=== PATIENT | male | born 1945 | race Caucasian/White ===

== ENCOUNTER 2017-10-15 09:07 | Emergency (ER) | payer MEDICARE, SELFPAY ==
[2017-10-15 09:08] VITALS: BP 188/91; PULSE 74; RESP 16; TEMP 36.4; O2SAT 97; BMI 25.0
[2017-10-15 09:51] LABS: International Normalized Ratio 2.8
--- NOTE | 2017-10-15 10:02 | ED.VISSUMM ---
- ER Visit Summary Date of Service: 10/15/17 Chief Complaint: Back contusion after fall History of Present Illness: The patient is a 72 M who is on Coumadin for multiple pulmonary emboli presents with a contusion to the back after mechanical fall yesterday. It is mid thoracic without any neck pain or head injury. Patient has no other injuries. Physical Examination: Otherwise unremarkable exam, no C-spine tenderness full range of motion of his spine and back he has a 15 x 15 mm ecchymoses over his back, no obvious hematoma. Test Results: INR 2.8 Emergency Department Course and Treatment: Patient was told to follow-up with his PCP. He appears intact, no reason for CT or x-rays. Disposition: Discharged in stable condition Impression: Ecchymosis over the back This note was generated with [employer] dictation software. It may contain incorrect words, spelling, and punctuation that were not noted in review of the chart prior to signing ED Disposition - Plan for ED Patient: Chief Complaint: Fall Referrals: Franc Hills MD [Primary Care Provider] -
--- NOTE | 2017-10-15 10:04 | ED.DEP ---
ED Disposition - Plan for ED Patient: Disposition: Home or Assisted Living Chief Complaint: Fall Instructions: ED Mechanical Fall Referrals: Franc Hills MD [Primary Care Provider] - 2 Days
[2017-10-15 10:30] VITALS: BP 134/75; PULSE 62; RESP 15; O2SAT 98
== END 2017-10-15 10:30 | disposition home or self-care (01) ==
PROVIDERS: Emergency Provider Emergency Medicine; Family Provider Internal Medicine; PCP Internal Medicine
DX: S20.229A Contusion of unspecified back wall of thorax, initial encounter (principal); W19.XXXA Unspecified fall, initial encounter; Y93.9 Activity, unspecified; Y92.9 Unspecified place or not applicable; Y99.9 Unspecified external cause status; G62.9 Polyneuropathy, unspecified; Z79.01 Long term (current) use of anticoagulants; Z79.899 Other long term (current) drug therapy; Z86.711 Personal history of pulmonary embolism
CPT/HCPCS: 36415; 85610; 99282

== ENCOUNTER → 2017-11-23 13:09 | Outpatient (CLI) | payer MEDICARE, SELFPAY | PROVIDERS: Family Provider Internal Medicine; PCP Internal Medicine; Visit Provider Internal Medicine Cardiovascular Disease | DX: I44.7 Left bundle-branch block, unspecified (principal) | CPT/HCPCS: 93306 ==

== ENCOUNTER 2018-01-10 14:08 | Emergency (ER) | payer MEDICARE, SELFPAY ==
[2018-01-10 14:09] VITALS: BP 152/73; PULSE 66; RESP 16; TEMP 36.8; O2SAT 99; BMI 24.3
--- NOTE | 2018-01-10 14:33 | RAD_ITS ---
STUDY: X-RAY - RIGHT SHOULDER REASON FOR EXAM: Male, 72 years old. Trauma TECHNIQUE: 4 view(s) of the shoulder. COMPARISON: None. FINDINGS: There is no evidence of fracture or dislocation. There are mild degenerative changes. There are no radiodense foreign bodies. RAD/Shoulder min 2 Views IMPRESSION: No fracture or dislocation. Mild degenerative changes. Electronically Signed: Ramon Arambula, at 16:37 EDT Tel , Service support ,
--- NOTE | 2018-01-10 14:33 | RAD_ITS ---
STUDY: X-RAY - UNILATERAL RIBS ( RIGHT ) WITH CHEST REASON FOR EXAM: Male, 72 years old. Trauma TECHNIQUE - RIBS: 4 view(s) of the ribs. TECHNIQUE - CHEST: Frontal view COMPARISON: 11/29/2014 FINDINGS - RIBS: There is a nondisplaced fracture of the right ninth rib. There are no additional displaced rib fractures identified. FINDINGS - CHEST: The lungs are clear. There are no pleural effusions. There is no pneumothorax. The heart is normal in size. RAD/Ribs Uni Min 3V w/PA Chest IMPRESSION: RIBS: Nondisplaced fracture of the right ninth rib. No additional displaced rib fracture identified. CHEST: Clear lungs. No pneumothorax. Electronically Signed: Ramon Arambula, at 16:34 EDT Tel , Service support ,
[2018-01-10 15:12] VITALS: PULSE 88; RESP 16; O2SAT 97
[2018-01-10 15:31] LABS: Prothrombin Time (Protime)PT. 23.1 SECONDS (11.7-14.9)
--- NOTE | 2018-01-10 16:38 | ED.VISSUMM ---
- ER Visit Summary Date of Service: 01/10/18 Chief Complaint: Fall History of Present Illness: The patient is a 72 M who presents after a fall. He slipped and fell onto a metal wastebasket which hit his right lower lateral ribs. He also complains of some mild pain in the right shoulder and noticed some bruising on his right forearm but does not have pain there. He denies any head injury loss of consciousness and headache or vomiting. He is on warfarin due to history of recurrent pulmonary emboli. Physical Examination: Afebrile vitals are stable Is regular rate and rhythm Patient does have right lower lateral chest wall tenderness but his lungs are clear with equal breath sounds bilaterally Abdomen soft Patient does have some bruising over the right anterior/volar forearm he has active full range of motion x4 extremities GCS of 15 with no focal or lateralizing neurological deficits Test Results: INR 2.0. Rib series shows a right ninth rib fracture no pneumothorax right shoulder x-ray shows no fracture or dislocation. Emergency Department Course and Treatment: Patient does have a nondisplaced rib fracture. He was given an incentive spirometer. He has 10 mg Percocets at home. He was advised to use these. He understands to return for new or worsening symptoms and was instructed on specific signs and symptoms to monitor for. He was discharged. Treatment Plan: [] Disposition: Discharge Impression: Right ninth rib fracture Right shoulder sprain Right forearm contusion This note was generated with [employer] dictation software. It may contain incorrect words, spelling, and punctuation that were not noted in review of the chart prior to signing ED Disposition - Plan for ED Patient: Chief Complaint: Fall Referrals: Franc Hills MD [Primary Care Provider] -
--- NOTE | 2018-01-10 16:40 | ED.DEP ---
ED Disposition - Plan for ED Patient: Chief Complaint: Fall Instructions: ED Mechanical Fall, ED Fx Rib, ED Sprain Shoulder Referrals: Franc Hills MD [Primary Care Provider] -
[2018-01-10 16:47] VITALS: BP 136/76; PULSE 78; RESP 16; O2SAT 98
--- NOTE | 2018-01-10 16:48 | ED.RN ---
RESPIRATORY TAUGHT PATIENT HOW TO USE INCENTIVE SPIROMETER
== END 2018-01-10 17:02 | disposition home or self-care (01) ==
PROVIDERS: Emergency Provider Emergency Medicine; Family Provider Internal Medicine; PCP Internal Medicine
DX: S22.31XA Fracture of one rib, right side, initial encounter for closed fracture (principal); S43.401A Unspecified sprain of right shoulder joint, initial encounter; S50.11XA Contusion of right forearm, initial encounter; W01.10XA Fall on same level from slipping, tripping and stumbling with subsequent striking against unspecified object, initial encounter; Y93.9 Activity, unspecified; Y92.9 Unspecified place or not applicable; Y99.9 Unspecified external cause status; I10 Essential (primary) hypertension; Z79.01 Long term (current) use of anticoagulants; Z79.899 Other long term (current) drug therapy; Z86.711 Personal history of pulmonary embolism
CPT/HCPCS: 71101; 73030; 85610; 99282

== ENCOUNTER 2018-11-29 08:02 | Day surgery (SDC) | payer MEDICARE, SELFPAY ==
[2018-11-29 08:24] VITALS: BP 115/75; PULSE 73; RESP 16; TEMP 36.6; O2SAT 95; BMI 22.8
[2018-11-29] MEDS: Lactated Ringers 1,000 ML 100 ML IV (08:38)
--- NOTE | 2018-11-29 08:49 | H&P.OPEN ---
History of Present Illness Date of Admission: 11/29/18 The patient is a 73 year old M who presents for screening colonoscopy. His last colonoscopy was 10 years ago. No polyps were identified at that time. Past Medical/Surgical History - Planned Operation Planned Operative Procedure/s: cscope open access Date of Operative Procedure: 11/29/18 Permit Signed: No S.O.S: No Is This Patient Having a Total Joint: No - Previous Hospitalizations/Surgeries HX Hospitalizations: Yes - pe 8 yrs ago HX of Surgeries: cscope 10 yrs ago. retinal eye surgery. ivc filter and then removed. wrist/laceration surgery as child. ablation back 5 yrs ago Any Problems With Anesthesia: No You/Your Family Experience Fever (Hyperthermia) With Anes: No Cholinesterase deficiency: No - Cardiovascular Hx Chest Pain within Last 2 months: No Hx of Irregular Heartbeat and/or Afib: No - lbbb/follows with dr cool/last visit 11/2017 Hx Heart Attack: No Hx Congestive Heart Failure: No Hx Rheumatic Fever: No Hx Hypertension: Yes - controlled with med Hx Internal Defibrillator: No Hx Pacemaker: No Hx Cardiac Catheterization: No - 2012 What facility was last heart cath performed: [facility] Date of last Heart Cath: 2012 Hx Cardiac Surgery/Stents/Etc.: No Hx Stress Test: Yes - [facility] 6 yrs ago/echo 2017 HX Edema: No Hx Pain in Legs when Walking/Leg Cramps: Yes - neuropathy - Respiratory Chronic Cough: No HX of Shortness of Breath: No Hoarseness: No Hx Chronic Obstructive Pulmonary Disease (COPD): No Hx Asthma: No Hx Emphysema: No Hx Sleep Apnea: No CPAP: No BIPAP: No Hx Oxygen Use at Home: No Hx Respiratory Tract Infection/Cold (presently): No Do You Snore Loudly (louder than talking or can be heard): No Do You Often Feel Tired/ Fatigued/ Sleepy Dring Daytime?: No Has Anyone Observed You Stop Breathing During Sleep?: No Result (for STOP score): Negative Hx Smoking: Yes - quit 1980 Smoking Status: Former smoker - Gastrointestinal Hx Gastroesophageal Reflux: No - occ heartburn/prn zantac Hx Gastrointestinal Disorders: No Hx Gastrointestinal Bleed: No Hx Ulcer: No Hx Hiatal Hernia: No Difficulty Chewing/Swallowing: No Recent Onset of Swallowing Problems: No Special diet followed at home: No Hx Unplanned Weight Loss of 20#: No HX Unplanned Weight Gain of 20#: No - Neurological Hx Seizures: No HX Syncope/Blackout Spells/Unconsciousness: No Hx CVA/Stroke: No Hx Transient Ischemic Attacks (TIA): No Hx Multiple Sclerosis: No Hx Parkinson's Disease: No Hx Head/Neck Injury: Yes - collapsed disc neck Hx Headaches: No Hx Back Injury/Pain: Yes - bulging disc/arthritis/stenosis/lumbago-sciatica Recent Onset of Speech Difficulty: No Restless Legs: No Does patient have nerve stimulator: No Patient instructed to have device shut off: No Rep notified?: No - Blood Disorder Hx Leukemia: No Bleeding Tendencies: No - not prior to coumadin Hx Deep Vein Thrombosis: Yes - 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 Hx High Cholesterol: Yes - stopped med Blood Transmitted Disease: No Hx Hepatitis: No Hx Cirrhosis: No Hx Anemia: No Hx Blood Disorders: No - Genitourinary Hx Renal Disease: No Hx Dialysis: No - Musculoskeletal Hx Arthritis: Yes Hx Rheumatoid Arthritis: No Hx Gout: No Recent Onset of an Orthopedic Problem: No - Endocrine Hx Diabetes: No Thyroid Disease: No Hx Steroid Therapy: No - Psycho/Social Hx Substance Use: No Hx Alcohol Use: Yes - wine Hx Anxiety: No Hx Depression: No Mental Illness: No Hx Dementia: No - Miscellaneous Hx Cancer: No Recent Exposure to Contagious Disease: No Active MRSA: No Hx of C-Diff: No Any Loose Teeth: No Allergies cephalexin [From Keflex] Allergy (Intermediate, Verified 11/24/18 09:12) Rash Sibling Family History: Family History (Last Reviewed 11/18/17 @ 09:52 by Aidan Cool MD) Father CAD (coronary artery disease) Myocardial infarction Mother No problems noted. Clotting Disorder, - - Brother - Discharge Is Pt Admitted From a Residential, or a Nursing Home: No Who Could Help: transportation After D/C, Where Do you Plan to Go: Return Home - From the PAT History Number of Risk Factors: 4 - Physical Exam General: Alert, Oriented x3 HEENT: Atraumatic, PERRLA, EOMI, Normocephalic Neck: Supple, No JVD Lungs: Clear to auscultation Cardiovascular: Regular rate, Regular Rhythm, No murmurs Abdomen: Bowel Sounds Present, Soft, Non Tender, Non-Distended Vital Signs Temp Pulse Resp BP Pulse Ox 97.9 F 73 16 115/75 95 11/29/18 08:24 11/29/18 08:24 11/29/18 08:24 11/29/18 08:24 11/29/18 08:24 Oxygen Delivery Method Room Air Weight: 187 lb 13.341 oz Body Mass Index (BMI) 22.8 Assessment/Plan Assessment: Screening colonoscopy Plan: Colonoscopy Surgery Risks - Colonoscopy Risks Include but are not Limited To: Risks include but are not limited to: Bleeding, perforation requiring further surgery, inability to complete colonoscopy requiring barium enema.
--- NOTE | 2018-11-29 09:30 | COLBX_PTH ---
PATIENT: ALEX BROOKS LOC: EN U#:[id number] AGE/SX: 73/M ROOM: RE11/29/[address]: Dr. Micah Hayes MD : 1945 BED: DIS: 11/29/2018 SPEC #: [id number] RECD: 11/29/18 11:26 STATUS: BRINDA REPolo #: [id number] KARMA: 11/29/18 09:[address]: Micah Hayes DEPT: SURGICAL PATHOLOGY RECD BY: Bishop Pete ENTERED: 11/29/18 13:37 SP TYPE: COLON BX OTHR DR: MD Franc Barger MD Tissues: Ascending colon Procedures: Surgery Specimen Level IV HEADER OPERATION: Colonoscopy, open access (MAC) PRE-OP DIAGNOSIS: Screening TISSUE SUBMITTED: Ascending colon polyp MICROSCOPIC DIAGNOSIS Ascending colon polyp, biopsy: Fragments of tubular adenoma. AM:sp 11/30/18 MICROSCOPIC DESCRIPTION Slides are reviewed. GROSS DESCRIPTION Received is one container labeled with the patient name and designated ascending colon polyp. The specimen consists of two irregular fragments of polyp that in aggregate measure 1 x 0.7 x 0.3 cm and 0.4 x 0.3 x 0.2 cm. The specimen is totally submitted in one cassette. /SJ:sp 11/29/18 TC: 5 CPT: 16502
[2018-11-29 10:00] VITALS: BP 115/75; BP 96/61; PULSE 67; RESP 18; TEMP 36.3; O2SAT 97
--- NOTE | 2018-11-29 10:02 | OP.ENDO_ITS ---
11/29/2018 Franc Hills Md Re : Colonoscopy procedure for Crispin Holt Augustar Reinier This procedure was performed on Thursday, November 29, 2018. My impressions and recommendations are as follows: Impressions : - One 8 mm polyp in the ascending colon, removed with a hot snare. Resected and retrieved. - Diverticulosis in the sigmoid colon. No specimens collected. - The examination was otherwise normal. Recommendations : - Discharge patient to home. - Resume previous diet. - Continue present medications. May resume Coumadin tomorrow. - Await pathology results. - Repeat colonoscopy in 3 years for surveillance. - Return to my office in 1 week. My findings are described in the full procedure note, which is enclosed. If I can be of further assistance, please feel free to contact me at Doctor phone number(s): , Fax: [phone], Work: . Sincerely, MD Micah Roberts MD 11/29/2018 10:01:50 AM This report has been signed electronically.
[2018-11-29 10:05] VITALS: BP 115/75; BP 91/64; PULSE 64; RESP 18; O2SAT 93
[2018-11-29 10:10] VITALS: BP 115/75; BP 92/61; PULSE 65; RESP 18; O2SAT 93
[2018-11-29 10:15] VITALS: BP 115/75; BP 95/62; PULSE 66; RESP 18; TEMP 36.2; O2SAT 98
[2018-11-29 10:31] VITALS: BP 115/75
== END 2018-11-29 10:36 | disposition home or self-care (01) ==
LOC: EN 08:05 → AC 08:06
PROVIDERS: Family Provider Internal Medicine; PCP Internal Medicine; Referring Provider Internal Medicine; Visit Provider Surgery
PROC: 0DJD8ZZ Inspection of Lower Intestinal Tract, Via Natural or Artificial Opening Endoscopic (ICD-10-PCS; CPT 45378; principal; 2018-11-29 09:25)
DX: Z12.11 Encounter for screening for malignant neoplasm of colon (principal); D12.2 Benign neoplasm of ascending colon; K57.30 Diverticulosis of large intestine without perforation or abscess without bleeding; I10 Essential (primary) hypertension; E78.00 Pure hypercholesterolemia, unspecified; Z79.01 Long term (current) use of anticoagulants; Z79.899 Other long term (current) drug therapy; Z88.1 Allergy status to other antibiotic agents; Z87.891 Personal history of nicotine dependence; Z86.711 Personal history of pulmonary embolism; Z86.718 Personal history of other venous thrombosis and embolism
CPT/HCPCS: 45385; 88305; J7120; J1610

== ENCOUNTER 2019-01-12 15:55 | Emergency (ER) | payer MEDICARE, SELFPAY ==
[2018-12-22 12:24] VITALS: BMI 26.1
[2019-01-12 15:55] VITALS: BP 170/87; PULSE 82; RESP 20; TEMP 36.5; O2SAT 96; BMI 25.9
--- NOTE | 2019-01-12 16:17 | EKG12_ITS ---
Test Reason : SOB Blood Pressure : / mmHG Vent. Rate : 070 BPM Atrial Rate : 070 BPM P-R Int : 154 ms QRS Dur : 142 ms QT Int : 432 ms P-R-T Axes : 044 008 080 degrees QTc Int : 466 ms Normal sinus rhythm Left bundle branch block Abnormal ECG Confirmed by NURA LINCOLN, JEOVANY ([id number]), editor department GUADALUPE BRISENO ([id number]) on 01/19/2019 9:28:51 A M Referred By: ERIKA Confirmed By:JAIDA LYMAN MD
--- NOTE | 2019-01-12 16:18 | ED.DCSUM_ITS ---
History of Present Illness Chief Complaint: Shortness of Breath Informant: Patient Onset: Today Narrative: Patient states he has had symptoms of high blood pressure, lightheadedness, dizziness for the past couple of weeks. The only thing he can think of was changing his sleeping medicine to Ambien about the time the symptoms started. He went to urgent care this morning where his blood pressure was 188/90. He already takes lisinopril hydrochlorothiazide combo. He was given an additional 10 mg of lisinopril to add to his regimen. Patient states at home today he continued to feel lightheaded despite his blood pressure coming down a little bit. He presented to the emergency room. He states he felt short of breath with exertion when walking up the hill into the emergency room. Thus the first time he has noted any shortness of breath. Patient does have a history of pulmonary embolism x3. He is on Coumadin. He has no known cardiac disease. - Past Medical History (1) Essential hypertension Status: Chronic (2) Hyperlipidemia Status: Chronic (3) Left bundle branch block Status: Chronic (4) Pulmonary embolism Status: Chronic Comment: Recurrent in 2009 and 2014 On warfarin Past Medical History - Allergies and Home Meds Allergies/Adverse Reactions: Allergies cephalexin [From Keflex] Allergy (Intermediate, Verified 01/12/19 15:58) Rash Primary Care Physician: Franc Hills MD [Primary Care Provider] - Prior records reviewed: Yes Past Medical History: - - Reviewed Surgical History: - - Eye surgery Smoking Status: Former smoker - Family History Sibling Family History: Family History (Last Reviewed 12/22/18 @ 13:07 by Aidan Atkinson MD) Father CAD (coronary artery disease) Myocardial infarction Mother No problems noted. Family History: Reports: Clotting Disorder, - - Brother Review of Systems General: Denies: Chills, Fever Eyes: Denies: Visual changes - bilaterally ENT: Denies: Bilateral ear pain Cardiovascular: Denies: Chest pain Respiratory: Reports: Dyspnea. Denies: Cough, Sputum Gastrointestinal: Denies: Abdominal pain, Nausea, Vomiting, Diarrhea Genitourinary: Denies: Dysuria Musculoskeletal: Denies: Back pain, Extremity Pain Skin: Denies: Wounds Neurological: Denies: Headache Endocrine: Denies: Polyuria, Polydipsia Hematologic: Denies: Easy bruising Allergy: Denies: Uticaria Physical Exam Vital Signs/Narrative: Vital Signs Temp Pulse Resp BP Pulse Ox 01/12/19 15:55 97.7 F L 82 20 H 170/87 H 96 Inital Vital Signs reviewed: Yes General: Well nourished, Well developed Head: Normocephalic ENT: Moist mucous membranes Neck: Supple, Nontender Cardiovascular: Regular rate, Regular rhythm Respiratory: No distress, CTA bilaterally Abdomen: Soft, Nontender, Normal bowel sounds Back: Nontender Extremities: Nontender, No edema Skin: Normal color, No rash Neurological: Alert, Oriented x3 Psychological: Normal affect Diagnostic/Tx/Re-eval Impressions Chest X-Ray 01/12/19 16:35 IMPRESSION: Calcified plaques of the aortic arch. Left basilar fibrosis. No acute cardiopulmonary disease process is seen. Chest findings are stable in the interval. Electronically Signed: Toy Sahni MD at 16:56 EDT , Service support , Chest CTA 01/12/19 17:28 IMPRESSION: Normal CTA chest examination, without a demonstrated pulmonary embolism or arterial dissection. Coronary arterial calcifications are present. There are mild diffuse emphysematous changes of the lungs. There is mild vascular pooling of the lung bases. Electronically Signed: Toy Sahni MD at 18:10 EDT , Service support , 01/12/19 16:35 Chest PA and Lateral [RAD] Stat 01/12/19 17:28 CTA Chest W/WO Contrast [CT] Stat Laboratory Results 01/12/19 01/12/19 01/12/19 16:30 16:30 16:30 WBC 7.5 RBC 4.66 Hgb 15.2 Hct 44.9 MCV 96.4 H MCH 32.6 H MCHC 33.9 RDW Std Deviation 46.2 H RDW Coeff of Uyen 12.9 Plt Count 186 MPV 9.4 Immature Gran % (Auto) 0.100 Neut % (Auto) 55.6 Lymph % (Auto) 30.3 [place] % (Auto) 11.5 H Eos % (Auto) 2.0 Baso % (Auto) 0.5 Absolute Neuts (auto) 4.2 Absolute Lymphs (auto) 2.27 Nucleated RBC % 0 PT 22.9 H INR 2.0 D-Dimer Quant (PE/DVT) 1.04 H* Sodium 142 Potassium 3.3 L Chloride 112 H Carbon Dioxide 25.0 Anion Gap 5 BUN 20 H Creatinine 0.76 Estim Creat Clear Calc 72.13 Est GFR (MDRD) Af Amer 129 Est GFR (MDRD) Non-Af 106 BUN/Creatinine Ratio 26.3 H Glucose 137 H Calcium 8.6 Troponin I < 0.015 - EKG Initial EKG Interpretation: Sinus Rhythm - Sinus at 70 with a left bundle branch block. - Medical Decision Making Laboratory evaluation was undertaken. Patient's d-dimer was elevated. CTA is unremarkable. Patient does tell me that he has been taking 20 mg of Ativan at night. My suspicion is this is leading to his lightheadedness and dizziness. He had previously been on a benzodiazepine to help him sleep and stopped this a couple weeks ago. I spoke with Dr. Maldonado. She asked that we either have the patient restart his benzo or write him a low-dose Ativan that he can use to help sleep at night. Patient is to take one half tab Ativan if he chooses to take it at all. Patient tells me he will not take any further Ativan. He is to follow-up with Dr. Hills. ED Disposition - Plan for ED Patient: Disposition: Home or Assisted Living Diagnosis: Dyspnea, Dizziness Instructions: DIZZINESS, Unk Cause Prescriptions: Lorazepam [Ativan] 1 mg PO QHS PRN PRN #10 tablet PRN Reason: Insomnia Referrals: Franc Hills MD [Primary Care Provider] - 1 Week
[2019-01-12 16:28] VITALS: BP 153/78; PULSE 73; RESP 16; O2SAT 95
--- NOTE | 2019-01-12 16:35 | RAD_ITS ---
STUDY: X-RAY CHEST REASON FOR EXAM: Male, 73 years old. Hypertension, lightheadedness TECHNIQUE: PA and lateral views of the chest. COMPARISON: Prior study of 01/10/2018 FINDINGS: product support consultant leads are present. There is left basilar fibrosis. There is no demonstrated pleural abnormality. Normal size heart. Normal mediastinum and tricia. Normal visualized pulmonary arteries. There are calcified plaques of the aortic arch. Normal visualized thoracic spine. Normal visualized ribs, clavicles, and shoulders. There is no demonstrated abnormality of the visualized soft tissue structures of the upper abdomen. RAD/Chest PA and Lateral IMPRESSION: Calcified plaques of the aortic arch. Left basilar fibrosis. No acute cardiopulmonary disease process is seen. Chest findings are stable in the interval. Electronically Signed: Toy Sahni MD at 16:56 EDT , Service support ,
[2019-01-12 16:48] LABS: Absolute Lymphocyte Count 2.27 X10^3/uL (0.83-4.51); Absolute Neutrophil Count 4.2 X10^3/uL (2.0-7.7); Basophil# 0.04 X10^3/uL; Basophil% 0.5 % (0-1); Eosinophil# 0.15 X10^3/uL; Hematocrit 44.9 % (40-54); Hemoglobin 15.2 g/dL (13.0-16.5); Lymphocyte # 2.27 X10^3/ul (4.0); Lymphocyte % 30.3 % (19-41); Mean Corp Hgb Conc 33.9 g/dL (32-36); Mean Corpuscular Hgb 32.6 pg (27.0-32.0); Mean Corpuscular Volume 96.4 fL (80-94); Mean Platelet Vol. 9.4 fl (6.2-12.0); Monocyte# 0.86 X10^3/uL; Monocyte% 11.5 % (0-10); NRBC Flagged by Analyzer 0 % (0-5); Neutrophil # 4.17 X10^3/uL (2.7-7.7); Neutrophil % 55.6 % (47-70); Platelet Count 186 K/mm3 (150-450); RBC Distribution Width CV 12.9 % (11.6-14.6); RBC Distribution Width SD 46.2 fl (35.1-43.9); Red Blood Count 4.66 M/mm3 (4.6-6.2); White Blood Count 7.5 K/mm3 (4.4-11.0)
[2019-01-12 16:57] VITALS: BP 158/78; PULSE 64; RESP 16; O2SAT 96
[2019-01-12 17:01] LABS: Prothrombin Time (Protime)PT. 22.9 SECONDS (11.7-14.9)
[2019-01-12 17:05] LABS: Anion Gap 5 (5-15); BUN 20 mg/dL (7-18); BUN/Creat Ratio 26.3 RATIO (10-20); Calcium,Total 8.6 mg/dL (8.5-10.1); Chloride 112 mmol/L (98-107); Creatinine, Serum 0.76 mg/dL (0.70-1.30); EST Glomerular Filtration Rate 106 mL/min (>60); Est Glom Filt Rate - Afr Amer 129 mL/min (>60); Estimated Creatinine Clearance 72.13 ml/min; Glucose 137 mg/dL (74-106); Potassium 3.3 mmol/L (3.5-5.1); Sodium Level 142 mmol/L (136-145)
[2019-01-12 17:12] LABS: D-Dimer Quantitative (DVT/PE) 1.04 FEU/ug/m (0.27-0.49)
--- NOTE | 2019-01-12 17:12 | ED.RN ---
D-DIMER 1.04 MD AWARE.
--- NOTE | 2019-01-12 17:28 | CT_ITS ---
STUDY: CTA CHEST REASON FOR EXAM: Male, 73 years old. Shortness of breath, history of PE RADIATION DOSAGE (If Supplied By Facility): CTDIvol = ( 14.135 ) mGy, DLP = ( 1072.57 ) mGycm TECHNIQUE: The examination was performed with the intravenous administration of IV Isovue 300 100. Post-processing of the angiographic images was performed, with multiplanar reformation and 3D reconstruction. Individualized dose optimization techniques were used for this CT. COMPARISON: Prior study of May 08, 2014 FINDINGS: Normal enhancement of the main pulmonary artery and right and left pulmonary arteries. Normal enhancement of the bilateral peripheral pulmonary arteries. There is no demonstrated pulmonary embolism. There are calcified plaques of the thoracic aorta. There is no demonstrated aortic dissection. Normal heart and pericardium. Coronary arterial calcifications are present. Normal mediastinum. Normal hilar regions. Normal visualized trachea and bronchi. The lungs are well expanded. There are mild diffuse emphysematous changes of the lungs. There is mild vascular pooling of the lung bases. Normal pleura. Normal chest wall structures. There is endplate spondylosis of the visualized lower thoracic spine. Normal visualized upper abdomen. CT/CTA Chest W/WO Contrast IMPRESSION: Normal CTA chest examination, without a demonstrated pulmonary embolism or arterial dissection. Coronary arterial calcifications are present. There are mild diffuse emphysematous changes of the lungs. There is mild vascular pooling of the lung bases. Electronically Signed: Toy Sahni MD at 18:10 EDT , Service support ,
[2019-01-12 18:00] VITALS: BP 151/87; RESP 16; O2SAT 96
[2019-01-12 18:58] VITALS: BP 154/87; PULSE 78; RESP 16; O2SAT 98
== END 2019-01-12 18:59 | disposition home or self-care (01) ==
PROVIDERS: Emergency Provider Emergency Medicine; Family Provider Internal Medicine; PCP Internal Medicine
DX: R06.00 Dyspnea, unspecified (principal); R42 Dizziness and giddiness; I10 Essential (primary) hypertension; E78.5 Hyperlipidemia, unspecified; I44.7 Left bundle-branch block, unspecified; Z79.01 Long term (current) use of anticoagulants; Z79.899 Other long term (current) drug therapy; Z88.1 Allergy status to other antibiotic agents; Z86.711 Personal history of pulmonary embolism; Z87.891 Personal history of nicotine dependence
CPT/HCPCS: 71046; 71275; 80048; 84484; 85025; 85379; 85610; 93005; 99284; Q9967; A4216

== ENCOUNTER → 2019-09-27 | Outpatient (CLI) | payer MEDICARE, SELFPAY ==
[2019-09-27 15:19] LABS: Prothrombin Time (Protime)PT. 63.1 SECONDS (11.7-14.9)
[2019-09-27 16:31] LABS: International Normalized Ratio 7.3
== END | disposition home or self-care (01) ==
LOC: LABSPEC 14:56
PROVIDERS: PCP Internal Medicine; Referring Provider Internal Medicine; Visit Provider Internal Medicine
DX: Z79.01 Long term (current) use of anticoagulants (principal)
CPT/HCPCS: 85610

== ENCOUNTER → 2019-09-29 | Outpatient (CLI) | payer MEDICARE, SELFPAY ==
[2019-09-29 11:36] LABS: Prothrombin Time (Protime)PT. 22.2 SECONDS (11.7-14.9)
== END | disposition home or self-care (01) ==
LOC: LABSPEC 11:12
PROVIDERS: PCP Internal Medicine; Referring Provider Internal Medicine; Visit Provider Internal Medicine
DX: Z79.01 Long term (current) use of anticoagulants (principal)
CPT/HCPCS: 85610

== ENCOUNTER 2020-06-26 16:24 | Emergency (ER) | payer MEDICARE, SELFPAY ==
[2020-06-26 16:26] VITALS: BP 198/109; PULSE 82; RESP 16; TEMP 36.2; O2SAT 95; BMI 30.6
[2020-06-26 16:59] VITALS: BP 173/90; PULSE 73; RESP 16
[2020-06-26] MEDS: amLODIPine 5 MG Tablet PO (17:02)
--- NOTE | 2020-06-26 17:09 | ED.VISSUMM ---
- ER Visit Summary Date of Service: 06/26/20 Chief Complaint: Elevated blood pressure History of Present Illness: The patient is a 74 M presenting with elevated blood pressure. Patient states that he had his blood pressure checked by his primary care physician's office yesterday. It was running high. He was called at night by the office and advised to add Norvasc 5 mg daily to his typical blood pressure medications. He has not started this medication yet. He took his blood pressure at home and it was 160/82. He denies chest pain or shortness of breath. Denies headache. He states he had dizziness earlier today which has resolved. Denies other complaints. Physical Examination: Vitals are stable. Blood pressure 173/90. Patient is afebrile. Alert no acute distress. HEENT exam is unremarkable. Neck is supple. Lungs are clear and equal bilaterally. Heart is regular rate and rhythm. Abdomen is soft nontender nondistended. Extremities are unremarkable. Skin is warm and dry. No focal neurologic deficit. Remainder of exam is unremarkable. Emergency Department Course and Treatment: Patient was given his home dose of Norvasc. He was observed in the ED. On reevaluation, he is asymptomatic. Repeat blood pressure is 175/83. Patient is advised to monitor his blood pressure at home and follow-up with his primary care physician. Advised return to ED for worsening complaints. Disposition: Discharge home Impression: Hypertension This note was generated with [employer] dictation software. It may contain incorrect words, spelling, and punctuation that were not noted in review of the chart prior to signing ED Disposition - Plan for ED Patient: Instructions: ED Hypertension, Established Referrals: Franc Hills MD [Primary Care Provider] -
--- NOTE | 2020-06-26 17:11 | ED.DEP ---
ED Disposition - Plan for ED Patient: Instructions: ED Hypertension, Established Referrals: Franc Hills MD [Primary Care Provider] -
[2020-06-26 17:50] VITALS: BP 175/83; PULSE 76; RESP 16
[2020-06-26 18:24] VITALS: BP 170/86; PULSE 72; RESP 16
== END 2020-06-26 18:24 | disposition home or self-care (01) ==
LOC: ED 17:27
PROVIDERS: Emergency Provider Emergency Medicine; PCP Internal Medicine
DX: I10 Essential (primary) hypertension (principal); Z79.01 Long term (current) use of anticoagulants; Z79.899 Other long term (current) drug therapy
CPT/HCPCS: 99282

== ENCOUNTER 2021-01-10 00:35 | Emergency (ER) | payer MEDICARE, SELFPAY ==
[2021-01-10 00:36] VITALS: BP 92/59; PULSE 75; RESP 15; TEMP 36.8; O2SAT 97; BMI 25.9
[2021-01-10 00:49] VITALS: BP 105/80
--- NOTE | 2021-01-10 01:14 | EDS_ITS ---
HPI History of Present Illness Chief Complaint: Lower Extremity Injury Detail of Chief Complaint: Injury to right great toe and right shoulder Informant: patient Narrative Narrative: Patient presents to the emergency department stating that 3 hours ago he tripped and fell and injured his right great toe. Patient states that he will not stop bleeding. Patient also jammed his right shoulder. He denies striking his head. Patient is on Coumadin and is INR was checked yesterday and was 3.7. Patient denies neck pain or any other injuries. [facility] Medical History (Updated 01/10/21 @ 02:[address] Cortes Levine, DO) Essential hypertension GERD (gastroesophageal reflux disease) Hyperlipidemia Left bundle branch block Lumbago-sciatica due to displacement of lumbar intervertebral disc Neuropathy Osteoarthritis Pulmonary embolism Home Medications lisinopril 20 mg-hydrochlorothiazide 12.5 mg tablet 1 tab PO QDAY 11/11/17 [History Last Taken Unknown] warfarin 7.5 mg PO SUSA 01/10/18 [History Last Taken Unknown] ascorbic acid (vitamin C) 1,000 mg tablet 1 g PO BID 12/16/18 [History Last Taken Unknown] coenzyme Q10 200 mg capsule 200 mg PO BID cap 12/16/18 [History Last Taken Unknown] cyanocobalamin (vitamin B-12) 2,500 mcg sublingual lozenge 2,500 mcg SUBLINGUAL BID ea 12/16/18 [History Last Taken Unknown] fluticasone propionate 50 mcg/actuation nasal spray,suspension 1 spray INTRANASAL DAILY 12/16/18 [History Last Taken Unknown] hydrocortisone 2.5 % topical cream with perineal applicator 1 applic RC BID PRN g 12/16/18 [History Last Taken Unknown] magnesium oxide 400 mg PO DAILY 12/16/18 [History Last Taken Unknown] multivitamin 1 tab PO DAILY 12/16/18 [History Last Taken Unknown] ranitidine HCl 300 mg tablet 300 mg PO DAILY PRN 12/16/18 [History Last Taken Unknown] rosuvastatin 10 mg tablet 10 mg PO QHS tab 12/16/18 [History Last Taken Unknown] saw palmetto 450 mg capsule 450 mg PO BID cap 12/16/18 [History Last Taken Unknown] Ca-D3-mag op-tufe-ywj-yousif-bor 1 ea PO DAILY 01/12/19 [History Last Taken Unknown] lisinopril 20 mg PO DAILY 01/12/19 [History Last Taken Unknown] lorazepam 1 mg PO QHS PRN PRN #10 tab 01/12/19 [Rx Last Taken Unknown] metoprolol tartrate 50 mg tablet 50 mg PO DAILY #1 tab 01/28/19 [Rx Last Taken Unknown] aspirin 81 mg PO DAILY 01/10/21 [History Last Taken Unknown] doxycycline hyclate 100 mg PO BID 10 Days #20 cap 01/10/21 [Rx Last Taken Unknown] potassium chloride 10 meq PO BID 01/10/21 [History Last Taken Unknown] verapamil 180 mg PO DAILY 01/10/21 [History Last Taken Unknown] warfarin 10 mg PO MOTUWETHFR 01/10/21 [History Last Taken Unknown] Allergy/AdvReac Type Severity Reaction Status Date / Time cephalexin [From Keflex] Allergy Intermediate Rash Verified 01/10/21 00:36 Family History Father , Age 74 CAD (coronary artery disease) Myocardial infarction Mother , age 104 No problems noted. Surgical History H/O colonoscopy with polypectomy History of hand surgery RFA of lumbar spine S/P IVC filter (~2011) Social History (Updated 12/22/18 @ 13:[address] Aidan Atkinson MD) Smoking Status: Former smoker pack-years: 15 ROS ROS ED Constitutional Constitutional ED: Reports systems reviewed and no addt'l complaints, except as documented; Denies body ache(s), change in weight or chills Eyes Eyes: Denies acute decrease in peripheral vision, change in vision, double vision or loss of vision ENT ENT ED: Reports none; Denies ear pain, lip swelling, loss taste/smell, neck pain, otalgia or sore throat Cardiovascular Cardiovascular: Reports none; Denies abdominal pain, chest pain with activity, leg edema, lightheadedness, palpitations, rapid heart rate or syncope Respiratory/Chest Respiratory/Chest: Reports none; Denies change in mental status, dry cough, dyspnea, hemoptysis, shortness of breath at rest or shortness of breath with exertion Gastrointestinal Gastrointestinal: Reports none; Denies abdominal pain, change in stool character, diarrhea, hematemesis, hematochezia, melena, rectal bleeding or vomiting Genitourinary Genitourinary ED: Reports none; Denies abdominal discomfort, anuria, dysuria, genital pain or polyuria Musculoskeletal Musculoskeletal: Reports none and other Details: Right great toe injury and right shoulder pain ; Denies arthralgias, back pain, difficulty walking, extremity pain, muscle weakness or myalgias Integumentary Reports none; Denies abscess or rash Neurologic Neurologic: Reports none; Denies abnormal gait, confusion, focal weakness, frequent falls, headache(s), loss of vision, numbness, paresthesias, radicular pain, vertigo or weakness Psychiatric Psychiatric: Reports systems reviewed and no addt'l complaints, except as documented and none; Denies behavioral changes, confusion, difficulty concentrating, hallucinations, suicidal ideation, tactile hallucinations or visual hallucinations Endocrine Endocrinology: Denies none, cold intolerance, excessive sweating, fatigue or heat intolerance Hematologic/Lymphatic Hematologic/Lymphatic: Reports none; Denies anemia, easy bleeding or easy bruising Allergic/Immunologic Allergic/Immunologic ED: Denies as per HPI, none, lip swelling, mouth swelling, throat swelling, tongue swelling or hives EXAM Physical Exam Const Vital Signs: 01/10/21 00:36 01/10/21 00:49 Temperature 98.3 F Temperature Source Temporal Pulse Rate 75 Respiratory Rate 15 Blood Pressure 92/59 L 105/80 Blood Pressure Mean 70 88 Pulse Ox 97 Oxygen Delivery Method Room Air Positive well nourished and well developed General Appearance ED: well developed and NAD HEENT Reports TM's clear and moist mucous membranes normocephalic and atraumatic; Negative for trauma or tenderness Tympanic Membrane ED: Yes TM's clear Eyes PERRL and EOMs intact bilaterally General Eye ED: Negative for pale conjunctiva or scleral icterus Neck no lymphadenopathy, supple and no JVD General: Negative for tenderness Chest Wall inspection of chest normal and palpation of chest normal Chest: Negative for tenderness Resp normal respiratory effort and clear to auscultation bilaterally Effort and Inspection: Negative for respiratory distress or pain with movement Auscultation: Negative for rhonchi, wheezes or diminished lung sounds Cardio regular rate, regular rhythm, S1 normal heart sound, S2 normal heart sound and no murmurs Peripheral Pulses: pulses 2+ throughout GI normal to inspection, nondistended, normoactive bowel sounds, soft to palpation, non-tender, non-distended and no masses Back/Spine no CVA tenderness and no thoracic nor lumbar tenderness Extremity Extremity Narrative: Evaluation of the right foot reveals that he has avulsed the great toenail from underneath the nail fold and there is some small amount of blood oozing. He has some mild diffuse tenderness over the great toe. No obvious deformity noted. Evaluation of the right shoulder reveals some mild tenderness over the glenohumeral joint posteriorly however he has good range of motion and no obvious deformity. He is neurovascular intact distally. General Extremety ED: Negative for edema General Extremity: Negative for edema Neuro oriented x3, CN's II-XII intact bilaterally, no sensory deficits noted and gait normal Sensorium / Orientation: awake, alert, oriented to person, oriented to place and oriented to time Motor Exam: strength 5/5 throughout and strength abnormal Psych mental status grossly normal Skin no rashes or lesions noted and no wounds MDM MDM Radiography Diagnostic Testing: Clinical Impression(s) from Imaging Studies Foot X-Ray 01/10/21 01:14 IMPRESSION: Acute nondisplaced fracture involving the head of the first distal phalanx. Nondisplaced fractures involving the medial aspects of the basis of the first distal proximal phalanges, probably subacute or old.. Bipartite medial sesamoid. Tiny calcaneal plantar spur. No radiopaque foreign body. Electronically Signed: David Echols MD at 2:04 EDT Tel , Service support , Shoulder X-Ray 01/10/21 01:14 IMPRESSION: There is periarticular soft tissue calcification consistent with a calcific tendinitis. Electronically Signed: Rachel Alvarez MD at 2:24 EDT Tel , Service support , Three-view x-rays of the right foot obtained interpreted by myself as fracture of distal phalanx. Radiology in agreement. Patient also had 2 view x-rays of right shoulder interpreted by myself as no acute fractures or dislocations. Radiology in agreement although they did note calcific tendinitis. Procedures Lacerations Great toe nailbed laceration: Length: 0.79 in Shape: Linear Prep: Sterile Conditions Laceration repair: Digital block, Irrigated and Lidocaine Irrigated (ml): 50 Number of Sutures/Ludmila: 4 Suture Information: Vicryl Comment: Patient had a complete avulsion of the nail from the nail fold. I was able to remove the nail using curved hemostats off of the nailbed. Using 5-0 Vicryl a total of 4 single erupted sutures placed with good wound edge approximation to the nailbed. The nail was then replaced underneath the nail fold and clean dressing was applied. Discharge Plan Triage Chief Complaint: Lower Extremity Injury ED Provider: Cortes Levine Dx/Rx/DC Orders Clinical Impression: Open toe fracture, Nailbed laceration, toe, Contusion of right shoulder Instructions: Bone Contusion, ED Laceration: All Closures, ED Fracture, Toe, Open Prescriptions: New doxycycline hyclate 100 mg capsule 100 mg PO BID 10 Days Qty: 20 RF: 0 No Action lisinopril-hydrochlorothiazide 20-12.5 mg tablet 1 tab PO QDAY RF: 0 fluticasone propionate [Allergy Relief (fluticasone)] 50 mcg/actuation spray,suspension 1 spray INTRANASAL DAILY RF: 0 ranitidine HCl 300 mg tablet 300 mg PO DAILY PRN (Reason: indigestion) RF: 0 hydrocortisone [Proctozone-HC] 2.5 % cream with perineal applicator 1 applic RC BID PRN (Reason: Hemorrhoids) RF: 0 magnesium oxide 400 mg magnesium capsule 400 mg PO DAILY RF: 0 coenzyme Q10 200 mg capsule 200 mg PO BID RF: 0 multivitamin Tablet 1 tab PO DAILY RF: 0 ascorbic acid (vitamin C) 1,000 mg tablet 1 g PO BID RF: 0 saw palmetto 450 mg capsule 450 mg PO BID RF: 0 cyanocobalamin (vitamin B-12) 2,500 mcg lozenge 2,500 mcg SUBLINGUAL BID RF: 0 warfarin 10 MG tablet 7.5 mg PO SUSA RF: 0 rosuvastatin 10 mg tablet 10 mg PO QHS RF: 0 lisinopril 10 MG tablet 20 mg PO DAILY RF: 0 Ca-D3-mag mw-llsr-ots-yousif-bor 1 EACH tablet,chewable 1 ea PO DAILY RF: 0 lorazepam 1 MG tablet 1 mg PO QHS PRN PRN (Reason: Insomnia) Qty: 10 RF: 0 warfarin 10 mg Tablet 10 mg PO MOTUWETHFR RF: 0 potassium chloride 10 mEq capsule, extended release 10 meq PO BID RF: 0 verapamil 180 mg Tablet Extended Release 180 mg PO DAILY RF: 0 aspirin 81 mg Tablet 81 mg PO DAILY RF: 0 metoprolol tartrate 50 mg tablet 50 mg PO DAILY Qty: 1 RF: 1 Primary Care Provider: Franc Hills Referrals: Jae Kaplan DPM [STAFF PHYSICIAN] - 5-7 Days Franc Hills MD [Primary Care Provider] - Disposition Disposition: Home, Self Care
--- NOTE | 2021-01-10 01:14 | RAD_ITS ---
STUDY: X-RAY - RIGHT FOOT CLINICAL: Male, 75 years old. Pain after trauma TECHNIQUE: 3 view(s) of the foot. COMPARISON: None. FINDINGS: Please see the impression. RAD/Foot min 3 Views IMPRESSION: Acute nondisplaced fracture involving the head of the first distal phalanx. Nondisplaced fractures involving the medial aspects of the basis of the first distal proximal phalanges, probably subacute or old.. Bipartite medial sesamoid. Tiny calcaneal plantar spur. No radiopaque foreign body. Electronically Signed: David Echols MD at 2:04 EDT Tel , Service support ,
--- NOTE | 2021-01-10 01:14 | RAD_ITS ---
STUDY: X-RAY - RIGHT SHOULDER REASON FOR EXAM: Male, 75 years old. injury TECHNIQUE: 3 view(s) of the shoulder. COMPARISON: None. FINDINGS: Normal glenohumeral articulation. Normal acromioclavicular joint. Normal acromion. Normal humeral head and visualized proximal humerus. There is periarticular soft tissue calcification consistent with a calcific tendinitis. Normal visualized pulmonary apex. RAD/Shoulder min 2 Views IMPRESSION: There is periarticular soft tissue calcification consistent with a calcific tendinitis. Electronically Signed: Rachel Alvarez MD at 2:24 EDT Tel , Service support ,
[2021-01-10] MEDS: Diphth,Pertuss(Acell),Tet Vac 0.5 ML Vial IM (03:08)
[2021-01-10] MEDS: Lidocaine 1% (20 ml mdv) 20 ML Vial 8 ML INFILT (03:11)
[2021-01-10] MEDS: Doxycycline 100 MG CAPSULE PO (03:12)
[2021-01-10 03:20] VITALS: PULSE 86; RESP 18; O2SAT 98
== END 2021-01-10 03:22 | disposition home or self-care (01) ==
PROVIDERS: Emergency Provider Emergency Medicine; PCP Internal Medicine
DX: S92.424B Nondisplaced fracture of distal phalanx of right great toe, initial encounter for open fracture (principal); S40.011A Contusion of right shoulder, initial encounter; Z23 Encounter for immunization; W01.0XXA Fall on same level from slipping, tripping and stumbling without subsequent striking against object, initial encounter; Y93.9 Activity, unspecified; Y92.9 Unspecified place or not applicable; Y99.9 Unspecified external cause status; I10 Essential (primary) hypertension; E78.5 Hyperlipidemia, unspecified; M51.16 Intervertebral disc disorders with radiculopathy, lumbar region; M19.90 Unspecified osteoarthritis, unspecified site; K21.9 Gastro-esophageal reflux disease without esophagitis; Z79.01 Long term (current) use of anticoagulants; Z79.82 Long term (current) use of aspirin; Z79.899 Other long term (current) drug therapy; Z86.711 Personal history of pulmonary embolism; Z87.891 Personal history of nicotine dependence
CPT/HCPCS: 12001; 73030; 73630; 90471; 90715; 99284

== ENCOUNTER 2021-09-28 13:21 | Emergency (ER) | payer MEDICARE, SELFPAY ==
[2021-09-28 13:22] VITALS: BP 194/76; PULSE 81; RESP 16; TEMP 36.3; O2SAT 96; BMI 48.5
--- NOTE | 2021-09-28 13:57 | CT_ITS ---
STUDY: CT BRAIN WITHOUT CONTRAST REASON FOR EXAM: Male, 76 years old. fall, headache RADIATION DOSAGE (If Supplied By Facility): CTDIvol = ( 44.99 ) mGy, DLP = ( 779.24 ) mGycm TECHNIQUE: Transaxial CT imaging of the brain was performed without administration of intravenous contrast material. Individualized dose optimization techniques were used for this CT. COMPARISON: 05/08/2014 FINDINGS: Normal soft tissue structures. Normal calvarium. There is mild cerebral atrophy with widening of the extra-axial spaces and ventricular dilatation. There are areas of decreased attenuation within the white matter tracts of the supratentorial brain, consistent with microvascular disease changes. Normal basal ganglia and thalami. Normal brainstem. Normal cerebellum. There is no intracranial hemorrhage. 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 Normal visualized paranasal sinuses. CT/Brain/Head without Contrast IMPRESSION: Chronic involutional changes of the brain. Electronically Signed: Aaron Price MD at 15:53 EDT ,
--- NOTE | 2021-09-28 13:57 | EKG12_ITS ---
Test Reason : FALL Blood Pressure : / mmHG Vent. Rate : 062 BPM Atrial Rate : 062 BPM P-R Int : 160 ms QRS Dur : 140 ms QT Int : 448 ms P-R-T Axes : 041 -09 074 degrees QTc Int : 454 ms Sinus rhythm Left bundle branch block Abnormal ECG Confirmed by SHAWN LINCOLN, AZAM ([id number]), newspaper copy editor GUADALUPE BRISENO ([id number]) on 10/01/2021 8:15:37 AM Referred By: ERIKA Confirmed By:AZAM ESCOBAR MD
--- NOTE | 2021-09-28 13:58 | EX.ED.DYSGE1 ---
HPI History of Present Illness Chief Complaint: Fall Informant: patient Onset/Context/Timing Onset: Yesterday Narrative Narrative: Patient presents after falling last night. He became dizzy last evening and fell striking the back of his head, left ribs, left upper arm. He is currently on Coumadin so came in today to be checked. He denies loss of consciousness. He states today he still feels slightly lightheaded. [facility] Medical History (Updated 09/28/21 @ 16:[address] Judi Aquino MD) Essential hypertension GERD (gastroesophageal reflux disease) Hyperlipidemia Left bundle branch block Lumbago-sciatica due to displacement of lumbar intervertebral disc Neuropathy Osteoarthritis Pulmonary embolism Home Medications lisinopril 20 mg-hydrochlorothiazide 12.5 mg tablet 1 tab PO QDAY 11/11/17 [History Last Taken Unknown] warfarin 10 mg tablet 7.5 mg PO SUSA 01/10/18 [History Last Taken Unknown] ascorbic acid (vitamin C) 1,000 mg tablet 1 g PO BID 12/16/18 [History Last Taken Unknown] coenzyme Q10 200 mg capsule 200 mg PO BID 12/16/18 [History Last Taken Unknown] cyanocobalamin (vitamin B-12) 2,500 mcg sublingual lozenge 2,500 mcg sublingual BID 12/16/18 [History Last Taken Unknown] fluticasone propionate 50 mcg/actuation nasal spray,suspension (Allergy Relief (fluticasone)) 1 spray intranasal DAILY 12/16/18 [History Last Taken Unknown] hydrocortisone 2.5 % topical cream with perineal applicator (Proctozone-HC) 1 applic PA BID PRN Hemorrhoids 12/16/18 [History Last Taken Unknown] magnesium oxide 400 mg PO DAILY 12/16/18 [History Last Taken Unknown] multivitamin 1 tab PO DAILY 12/16/18 [History Last Taken Unknown] ranitidine HCl 300 mg tablet 300 mg PO DAILY PRN indigestion 12/16/18 [History Last Taken Unknown] rosuvastatin 10 mg tablet 10 mg PO QHS 12/16/18 [History Last Taken Unknown] saw palmetto 450 mg capsule 450 mg PO BID 12/16/18 [History Last Taken Unknown] Ca 600 mg-D3 800 unit-mag ox 40 sk-As-tjrbtc-Mn-boron chewable tablet 1 ea PO DAILY 01/12/19 [History Last Taken Unknown] lisinopril 10 mg tablet 20 mg PO DAILY 01/12/19 [History Last Taken Unknown] lorazepam 1 mg tablet 1 mg PO QHS PRN PRN Insomnia #10 tabs 01/12/19 [Rx Last Taken Unknown] metoprolol tartrate 50 mg tablet 50 mg PO DAILY 1 hour prior to Calcium Score on 01/31/19 #1 TAB 01/28/19 [Rx Last Taken Unknown] aspirin 81 mg tablet 81 mg PO DAILY 01/10/21 [History Last Taken Unknown] doxycycline hyclate 100 mg capsule 100 mg PO BID 10 days #20 caps 01/10/21 [Rx Last Taken Unknown] potassium chloride 10 mEq capsule,extended release 10 meq PO BID 01/10/21 [History Last Taken Unknown] verapamil 180 mg tablet,extended release 180 mg PO DAILY 01/10/21 [History Last Taken Unknown] warfarin 10 mg tablet 10 mg PO MOTUWETHFR 01/10/21 [History Last Taken Unknown] Allergy/AdvReac Type Severity Reaction Status Date / Time cephalexin [From Keflex] Allergy Intermediate Rash Verified 09/28/21 13:24 Family History Father , Age 74 CAD (coronary artery disease) Myocardial infarction Mother , age 104 No problems noted. Surgical History H/O colonoscopy with polypectomy History of hand surgery RFA of lumbar spine S/P IVC filter (~2011) Social History Smoking Status: Former smoker pack-years: 15 ROS ROS ED Constitutional Constitutional ED: Denies chills or fever(s) Eyes Eyes: Denies change in vision or discharge from eye(s) ENT ENT ED: Denies discharge from eye(s), rhinorrhea or sore throat Cardiovascular Cardiovascular: Denies chest pain or palpitations Respiratory/Chest Respiratory/Chest: Denies cough or dyspnea Gastrointestinal Gastrointestinal: Denies abdominal pain, diarrhea, nausea or vomiting Genitourinary Genitourinary ED: Denies difficulty urinating or dysuria Musculoskeletal Musculoskeletal: Reports extremity pain; Denies back pain Integumentary Denies Abrasions or rash Neurologic Neurologic: Denies headache(s) or weakness Allergic/Immunologic Allergic/Immunologic ED: Denies lip swelling or urticaria EXAM Physical Exam Const Vital Signs: 09/28/21 13:22 09/28/21 13:39 Temperature 97.4 F L Temperature Source Temporal Pulse Rate 81 Respiratory Rate 16 Respiratory Effort Normal Non-Labored Respiratory Depth Normal Respiratory Pattern Normal Blood Pressure 194/76 H Blood Pressure Mean 115 Pulse Ox 96 Oxygen Delivery Method Room Air Room Air Positive well nourished and well developed General Appearance ED: well developed HEENT Reports normocephalic and head/scalp atraumatic Eyes PERRL and EOMs intact bilaterally Neck supple Chest Wall inspection of chest normal and palpation of chest normal Resp normal respiratory effort and clear to auscultation bilaterally Cardio regular rate and regular rhythm GI normal to inspection, nondistended, normoactive bowel sounds Palpation: soft Back/Spine no CVA tenderness Extremity normal to inspection Neuro oriented x3 and no sensory deficits noted Sensorium / Orientation: alert Motor Exam: strength 5/5 throughout Psych mental status grossly normal Skin no rashes or lesions noted MDM MDM MDM Narrative Medical decision making narrative: With patient having dizziness and lightheadedness I did get blood work and an EKG. Head CT obtained. Lab Data Attestation: I reviewed the patient's lab results. Labs: Laboratory Results - last 24 hr 09/28/21 09/28/21 09/28/21 14:19 14:19 14:19 WBC 7.3 RBC 4.91 Hgb 15.5 Hct 47.0 MCV 95.7 H MCH 31.6 MCHC 33.0 RDW Std Deviation 49.6 H RDW Coeff of Uy[place] 14.0 Plt Count 201 MPV 9.6 Immature Gran % (Auto) 0.100 Neut % (Auto) 41.2 L Lymph % (Auto) 39.1 [place] % (Auto) 13.7 H Eos % (Auto) 5.2 H Baso % (Auto) 0.7 Absolute Neuts (auto) 3.0 Absolute Lymphs (auto) 2.86 Nucleated RBC % 0 PT 19.4 H INR 1.7 Sodium 138 Potassium 3.8 Chloride 106 Carbon Dioxide 26.0 Anion Gap 6 BUN 14 Creatinine 0.85 Estim Creat Clear Calc 80.94 Est GFR (MDRD) Af Amer 112 Est GFR (MDRD) Non-Af 92 BUN/Creatinine Ratio 16.4 Glucose 99 Calcium 9.3 Radiography Diagnostic Testing: Clinical Impression(s) from Imaging Studies Brain CT 09/28/21 13:57 IMPRESSION: Chronic involutional changes of the brain. Electronically Signed: Aaron Price MD at 15:53 EDT , EKG Initial EKG: Attestation: I personally reviewed and interpreted this EKG as follows: Interpretation: Sinus Rhythm (Sinus at 62 with left bundle branch block. No acute ischemia.) Treatment and Re-Evaluation Narrative: On repeat evaluation patient resting comfortably. Although blood pressure was significantly elevated on arrival and is currently 128/62. I did discuss with patient that his INR is slightly subtherapeutic at 1.7. He is scheduled to get it rechecked on Thursday. Return instructions provided. Discharge Plan Triage Chief Complaint: Fall ED Provider: Judi Aquino Dx/Rx/DC Orders Clinical Impression: Fall, Contusion of head Instructions: ED Head Injury (Adult) Prescriptions: No Action lisinopril-hydrochlorothiazide 20-12.5 mg tablet 1 tab PO QDAY fluticasone propionate [Allergy Relief (fluticasone)] 50 mcg/actuation spray,suspension 1 spray INTRANASAL DAILY ranitidine HCl 300 mg tablet 300 mg PO DAILY PRN (Reason: indigestion) hydrocortisone [Proctozone-HC] 2.5 % cream with perineal applicator 1 applic RC BID PRN (Reason: Hemorrhoids) magnesium oxide 400 mg magnesium capsule 400 mg PO DAILY coenzyme Q10 200 mg capsule 200 mg PO BID multivitamin Tablet 1 tab PO DAILY ascorbic acid (vitamin C) 1,000 mg tablet 1 g PO BID saw palmetto 450 mg capsule 450 mg PO BID Label Comments: supplement cyanocobalamin (vitamin B-12) 2,500 mcg lozenge 2,500 mcg SUBLINGUAL BID Label Comments: supplement warfarin 10 MG tablet 7.5 mg PO SUSA rosuvastatin 10 mg tablet 10 mg PO QHS lisinopril 10 MG tablet 20 mg PO DAILY Ca-D3-mag jz-dswi-puf-yousif-bor 1 EACH tablet,chewable 1 ea PO DAILY lorazepam 1 MG tablet 1 mg PO QHS PRN PRN (Reason: Insomnia) Qty: 10 0RF warfarin 10 mg Tablet 10 mg PO MOTUWETHFR potassium chloride 10 mEq capsule, extended release 10 meq PO BID verapamil 180 mg Tablet Extended Release 180 mg PO DAILY aspirin 81 mg Tablet 81 mg PO DAILY doxycycline hyclate 100 mg capsule 100 mg PO BID 10 Days Qty: 20 0RF metoprolol tartrate 50 mg tablet 50 mg PO DAILY Qty: 1 1RF Primary Care Provider: Franc Hills Referrals: Franc Hills MD [Primary Care Provider] - Disposition Disposition: Home, Self Care
[2021-09-28 14:29] LABS: Absolute Lymphocyte Count 2.86 X10^3/uL (0.83-4.51); Basophil# 0.05 X10^3/uL; Basophil% 0.7 % (0-1); Eosinophil# 0.38 X10^3/uL; Eosinophils% 5.2 % (0-5); Hemoglobin 15.5 g/dL (13.0-16.5); Lymphocyte # 2.86 X10^3/ul (0.83-4.51); Lymphocyte % 39.1 % (19-41); Mean Corpuscular Hgb 31.6 pg (27.0-32.0); Mean Corpuscular Volume 95.7 fL (80-94); Mean Platelet Vol. 9.6 fl (6.2-12.0); Monocyte% 13.7 % (0-10); NRBC Flagged by Analyzer 0 % (0-5); Neutrophil # 3.01 X10^3/uL (2.7-7.7); Neutrophil % 41.2 % (47-70); Platelet Count 201 K/mm3 (150-450); RBC Distribution Width SD 49.6 fl (35.1-43.9); Red Blood Count 4.91 M/mm3 (4.6-6.2); White Blood Count 7.3 K/mm3 (4.4-11.0)
[2021-09-28 14:38] LABS: International Normalized Ratio 1.7; Prothrombin Time (Protime)PT. 19.4 SECONDS (11.7-14.9)
[2021-09-28 15:11] LABS: Anion Gap 6 (5-15); BUN 14 mg/dL (7-18); BUN/Creat Ratio 16.4 RATIO (10-20); Calcium,Total 9.3 mg/dL (8.5-10.1); Chloride 106 mmol/L (98-107); Creatinine, Serum 0.85 mg/dL (0.70-1.30); EST Glomerular Filtration Rate 92 mL/min (>60); Est Glom Filt Rate - Afr Amer 112 mL/min (>60); Estimated Creatinine Clearance 80.94 ml/min; Glucose 99 mg/dL (74-106); Potassium 3.8 mmol/L (3.5-5.1); Sodium Level 138 mmol/L (136-145)
[2021-09-28 16:13] VITALS: BP 124/76; PULSE 81; RESP 16; O2SAT 97
== END 2021-09-28 16:14 | disposition home or self-care (01) ==
PROVIDERS: Emergency Provider Emergency Medicine; PCP Internal Medicine; Visit Provider Emergency Medicine
DX: S00.93XA Contusion of unspecified part of head, initial encounter (principal); W19.XXXA Unspecified fall, initial encounter; I10 Essential (primary) hypertension; E78.5 Hyperlipidemia, unspecified; R42 Dizziness and giddiness; M19.90 Unspecified osteoarthritis, unspecified site; K21.9 Gastro-esophageal reflux disease without esophagitis; Z79.01 Long term (current) use of anticoagulants; Z79.899 Other long term (current) drug therapy; Z87.891 Personal history of nicotine dependence
CPT/HCPCS: 70450; 80048; 85025; 85610; 93005; 99284

== ENCOUNTER 2022-03-24 10:39 | Day surgery (SDC) | payer MEDICARE, SELFPAY ==
[2022-03-24] VITALS (8 sets, daily range): BP systolic 61–124; BP diastolic 42–75; PULSE 52–89; RESP 16–18; TEMP 36.1; O2SAT 96–100; BMI 22.9
[2022-03-24 11:05] LABS: INR Fingerstick 1.1; Prothrombin Time Fingerstick 13.8 SEC (11.7-14.9)
[2022-03-24] MEDS: Lactated Ringers 1,000 ML 15 ML IV (11:25)
[2022-03-24] MEDS: Lactated Ringers 500 ML 999 ML IV (11:42)
--- NOTE | 2022-03-24 12:50 | H&P.OPEN ---
HPI - General General Date of Admission: 03/24/22 Date of Service: 03/24/22 HPI Narrative ALEX BROOKS, is a 76 M who presents for evaluation for colonoscopy. Last colonoscopy was in 2018 where he was noted to have a polyp. [facility] Medical History Alcohol use Asthma Back pain Cardiology follow-up encounter Essential hypertension Former smoker GERD (gastroesophageal reflux disease) History of echocardiogram History of edema History of pain when walking History of stress test Hoarseness Hyperlipidemia Hypertension Injury of head and neck Kidney stone Left bundle branch block Lumbago-sciatica due to displacement of lumbar intervertebral disc Neuropathy Osteoarthritis Pulmonary embolism Wears glasses Home Medications lisinopril 20 mg-hydrochlorothiazide 12.5 mg tablet 1 tab PO BID 11/11/17 [History Last Taken 03/23/22] ascorbic acid (vitamin C) 1,000 mg tablet 1 g PO DAILY 12/16/18 [History Last Taken Unknown] coenzyme Q10 200 mg capsule 400 mg PO DAILY 12/16/18 [History Last Taken Unknown] cyanocobalamin (vitamin B-12) 2,500 mcg sublingual lozenge 2,500 mcg sublingual BID 12/16/18 [History Last Taken Unknown] fluticasone propionate 50 mcg/actuation nasal spray,suspension (Allergy Relief (fluticasone)) 1 spray intranasal DAILY 12/16/18 [History Last Taken Unknown] hydrocortisone 2.5 % topical cream with perineal applicator (Proctozone-HC) 1 applic MD BID PRN Hemorrhoids 12/16/18 [History Last Taken Unknown] magnesium oxide 400 mg PO BID 12/16/18 [History Last Taken Unknown] multivitamin 2 tab PO DAILY 12/16/18 [History Last Taken Unknown] rosuvastatin 10 mg tablet (Crestor) 20 mg PO QHS 12/16/18 [History Last Taken Unknown] saw palmetto 450 mg capsule 450 mg PO BID 12/16/18 [History Last Taken Unknown] Ca 600 mg-D3 800 unit-mag ox 40 ro-Ea-hxxfyu-Mn-boron chewable tablet 1 ea PO DAILY 01/12/19 [History Last Taken Unknown] aspirin 81 mg tablet 81 mg PO DAILY 01/10/21 [History Last Taken Unknown] potassium chloride 10 mEq capsule,extended release 10 meq PO BID 01/10/21 [History Last Taken Unknown] warfarin 10 mg tablet 10 mg PO DAILY 01/10/21 [History Last Taken 03/18/22] calcium 500 mg tablet 500 mg PO BID 03/20/22 [History Last Taken Unknown] famotidine 40 mg tablet 40 mg PO PRN PRN GERD 03/20/22 [History Last Taken Unknown] lorazepam 1 mg tablet 2 mg PO QHS PRN PRN Insomnia 03/20/22 [History Last Taken Unknown] oxycodone-acetaminophen 5 mg-325 mg tablet 1 tab PO PRN PRN Pain 03/20/22 [History Last Taken Unknown] vitamin B complex 1 tab PO BID 03/20/22 [History Last Taken Unknown] Allergy/AdvReac Type Severity Reaction Status Date / Time cephalexin [From Keflex] Allergy Intermediate Rash Verified 03/24/22 11:18 Family History Father , Age 74 CAD (coronary artery disease) Myocardial infarction Mother , age 104 No problems noted. Surgical History H/O colonoscopy with polypectomy History of hand surgery Hx of carotid angioplasty RFA of lumbar spine S/P IVC filter (~2011) Social History Smoking Status: Former smoker pack-years: 15 Past Medical/Surgical History Planned Operation Planned Operative Procedure/s: COLONOSCOPY Permit Signed: Yes S.O.S: No Previous Hospitalizations/Surgeries HX Hospitalizations: No HX of Surgeries: cscope 10 yrs ago retinal eye surgery ivc filter and then removed wrist/laceration surgery as child ablation back 5 yrs ago Any Problems With Anesthesia: No You/Your Family Experience Fever (Hyperthermia) With Anes: No Cholinesterase deficiency: No Cardiovascular Hx Chest Pain within Last 2 months: No Hx of Irregular Heartbeat and/or Afib: No (lbbb/follows with dr cool/last visit 11/2017) Hx Heart Attack: No Hx Congestive Heart Failure: No Hx Rheumatic Fever: No Hx Hypertension: Yes (controlled with med) Hx Internal Defibrillator: No Hx Pacemaker: No Hx Cardiac Catheterization: No (2012) Hx Cardiac Surgery/Stents/Etc.: No Hx Stress Test: Yes (ccf 6 yrs ago/echo 2018) Hx Pain in Legs when Walking/Leg Cramps: Yes (neuropathy) Respiratory Chronic Cough: No HX of Shortness of Breath: No Hoarseness: No Hx Chronic Obstructive Pulmonary Disease (COPD): No Hx Asthma: No Hx Emphysema: No Hx Sleep Apnea: No CPAP: No BIPAP: No Hx Respiratory Tract Infection/Cold (presently): No Do You Snore Loudly (louder than talking or can be heard): No Do You Often Feel Tired/ Fatigued/ Sleepy Dring Daytime?: No Has Anyone Observed You Stop Breathing During Sleep?: No Result (for STOP score): Negative Hx Smoking: Yes (quit 1980) Smoking Status: Former smoker Gastrointestinal Hx Gastroesophageal Reflux: No (occ heartburn/prn zantac) Hx Gastrointestinal Disorders: No Hx Gastrointestinal Bleed: No Hx Ulcer: No Hx Hiatal Hernia: No Difficulty Chewing/Swallowing: No Special diet followed at home: No Hx Unplanned Weight Loss of 20#: No HX Unplanned Weight Gain of 20#: No Neurological Hx Seizures: No HX Syncope/Blackout Spells/Unconsciousness: No Hx Transient Ischemic Attacks (TIA): No Hx Multiple Sclerosis: No Hx Parkinson's Disease: No Hx Head/Neck Injury: Yes (collapsed disc neck) Hx Headaches: No Hx Back Injury/Pain: Yes (bulging disc/arthritis/stenosis/lumbago-sciatica) Recent Onset of Speech Difficulty: No Restless Legs: No Does patient have nerve stimulator: No Blood Disorder Hx Leukemia: No Bleeding Tendencies: No (not prior to coumadin) Hx Deep Vein Thrombosis: Yes (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) Hx High Cholesterol: Yes Blood Transmitted Disease: No Hx Hepatitis: No Hx Cirrhosis: No Hx Anemia: No Hx Blood Disorders: No Genitourinary Hx Renal Disease: No Hx Dialysis: No Musculoskeletal Hx Arthritis: Yes Hx Rheumatoid Arthritis: No Hx Gout: No Recent Onset of an Orthopedic Problem: No Endocrine Hx Diabetes: No Thyroid Disease: No Hx Steroid Therapy: No Psycho/Social Hx Substance Use: No Hx Alcohol Use: Yes (wine) Hx Anxiety: No Hx Depression: No Mental Illness: No Hx Dementia: No Miscellaneous Hx Cancer: No Recent Exposure to Contagious Disease: No Hx of C-Diff: No Any Loose Teeth: No Allergies cephalexin [From Keflex] Allergy (Intermediate, Verified 03/24/22 11:18) Rash Sibling: Family History Father CAD (coronary artery disease) Myocardial infarction Mother No problems noted. Clotting Disorder and - (Brother) Discharge Is Pt Admitted From a Longterm, or a Jail: No After D/C, Where Do you Plan to Go: Return Home From the PAT History Number of Risk Factors: 4 Vital Signs Vital Signs Vital Signs: 03/24/22 11:19 03/24/22 11:19 Temperature 97.0 F L Temperature Source Temporal Pulse Rate 81 Respiratory Rate 18 Respiratory Pattern Normal Blood Pressure 77/52 L Blood Pressure Mean 60 Blood Pressure Source Monitor Blood Pressure Position Semi-Fowlers Blood Pressure Location Right Arm Pulse Ox 98 Oxygen Delivery Method Room Air Weight Weight: 174 lb 2.643 oz Body Mass Index (BMI) 22.9 Physical Exam Const alert and oriented x3 Eyes PERRL and EOMs intact bilaterally Resp clear to auscultation bilaterally GI Auscultation: normoactive bowel sounds Assessment & Plan Assessment/Plan (1) Hx of adenomatous colonic polyps: PLAN: I have discussed the above with the patient. I have offered the patient colonoscopy for evaluation. I have explained the risks/benefits of the procedure and described the procedure. I have discussed the risks with the patient, including but not limited to: infection, bleeding, perforation of the GI tract requiring emergency surgery, inability to complete the procedure, injury to any internal organs, complications of anesthesia, etc. - the patient understands and agrees to proceed. I have answered all the patient's questions to the patient's satisfaction and the patient has no further questions. The patient has been given instructions for the colon cleansing preparation. Surgery Risks - Colonoscopy Risks Include but are not Limited To: Risks include but are not limited to: Bleeding, perforation requiring further surgery, inability to complete colonoscopy requiring barium enema.
--- NOTE | 2022-03-24 13:19 | OP.COLON_ITS ---
Patient Name: Crispin Holt Procedure Date: 03/24/2022 12:58 PM Date of : 1945 Age: 76 Procedure: Colonoscopy Indications: High risk colon cancer surveillance: Personal history of colonic polyps Providers: Micah Hayes MD Referring MD: Olivia Maldonado Medicines: See the Anesthesia note for documentation of the administered medications Patient Profile: This is a 76 year old male. Refer to note in patient chart for documentation of history and physical. Last Colonoscopy: November 2018. Complications: No immediate complications. Estimated blood loss: None. Procedure: Pre-Anesthesia Assessment: - Prior to the procedure, a History and Physical was performed, and patient medications and allergies were reviewed. The patient's tolerance of previous anesthesia was also reviewed. The risks and benefits of the procedure and the sedation options and risks were discussed with the patient. All questions were answered, and informed consent was obtained. Prior Anticoagulants: The patient has taken no previous anticoagulant or antiplatelet agents. ASA Grade Assessment: III - A patient with severe systemic disease. After reviewing the risks and benefits, the patient was deemed in satisfactory condition to undergo the procedure. After I obtained informed consent, the scope was passed under direct vision. Throughout the procedure, the patient's blood pressure, pulse, and oxygen saturations were monitored continuously. The colonoscope was introduced through the anus and advanced to the cecum, identified by appendiceal orifice and ileocecal valve. The colonoscopy was performed without difficulty. The patient tolerated the procedure well. The quality of the bowel preparation was adequate to identify polyps 6 mm and larger in size. Scope In: 1:00:03 PM Scope Withdrawal Time 0 hours 8 minutes 40 seconds Scope Out: 1:14:16 PM Total Procedure Duration Time 0 hours 14 minutes 13 seconds Findings: The perianal and digital rectal examinations were normal. A few small-mouthed diverticula were found in the sigmoid colon. The exam was otherwise without abnormality on direct and retroflexion views. Impression: - Diverticulosis in the sigmoid colon. - The examination was otherwise normal on direct and retroflexion views. - No specimens collected. Recommendation: - Patient has a contact number available for emergencies. The signs and symptoms of potential delayed complications were discussed with the patient. Return to normal activities tomorrow. Written discharge instructions were provided to the patient. - Resume previous diet. - Continue present medications. - Repeat colonoscopy in 10 years for screening purposes. - Return to primary care physician PRN. Procedure Code(s): --- Professional --- 80155, Colonoscopy, flexible; diagnostic, including collection of specimen(s) by brushing or washing, when performed (separate procedure) Diagnosis Code(s): --- Professional --- Z86.010, Personal history of colonic polyps K57.30, Diverticulosis of large intestine without perforation or abscess without bleeding CPT copyright 2017 [employer]. All rights reserved. The codes documented in this report are preliminary and upon medical lab technician review may be revised to meet current compliance requirements. MD Micah Roberts MD 03/24/2022 1:19:23 PM This report has been signed electronically. Number of Addenda: 0 Note Initiated On: 03/24/2022 12:58 PM
--- NOTE | 2022-03-24 13:19 | OP.CCLET_ITS ---
03/24/2022 Olivia Maldonado Md Re : Colonoscopy procedure for Crispin Holt Dear Erica This procedure was performed on Thursday, March 24, 2022. My impressions and recommendations are as follows: Impressions : - Diverticulosis in the sigmoid colon. - The examination was otherwise normal on direct and retroflexion views. - No specimens collected. Recommendations : - Patient has a contact number available for emergencies. The signs and symptoms of potential delayed complications were discussed with the patient. Return to normal activities tomorrow. Written discharge instructions were provided to the patient. - Resume previous diet. - Continue present medications. - Repeat colonoscopy in 10 years for screening purposes. - Return to primary care physician PRN. My findings are described in the full procedure note, which is enclosed. If I can be of further assistance, please feel free to contact me at Doctor phone number(s): , Work: . Sincerely, MD Micah Roberts MD 03/24/2022 1:19:23 PM This report has been signed electronically.
== END 2022-03-24 14:51 | disposition home or self-care (01) ==
LOC: EN 10:40 → AC 10:41
PROVIDERS: PCP Internal Medicine; Referring Provider Internal Medicine; Visit Provider Surgery
PROC: 0DJD8ZZ Inspection of Lower Intestinal Tract, Via Natural or Artificial Opening Endoscopic (ICD-10-PCS; CPT 45378; principal; 2022-03-24 12:55)
DX: Z12.11 Encounter for screening for malignant neoplasm of colon (principal); K57.30 Diverticulosis of large intestine without perforation or abscess without bleeding; I10 Essential (primary) hypertension; E78.5 Hyperlipidemia, unspecified; K21.9 Gastro-esophageal reflux disease without esophagitis; J45.909 Unspecified asthma, uncomplicated; M19.90 Unspecified osteoarthritis, unspecified site; Z79.82 Long term (current) use of aspirin; Z79.01 Long term (current) use of anticoagulants; Z79.899 Other long term (current) drug therapy; Z86.010 Personal history of colon polyps; Z87.891 Personal history of nicotine dependence
CPT/HCPCS: G0121; 36416; 85610; J7120; J2405

== ENCOUNTER 2023-05-14 12:01 | Emergency (ER) | payer MEDICARE, SELFPAY ==
[2023-05-14 12:01] VITALS: BP 138/93; PULSE 73; RESP 16; TEMP 36.3; O2SAT 98; BMI 22.4
[2023-05-14] MEDS: Ondansetron ODT 4 MG Tablet PO (12:39)
[2023-05-14] MEDS: Morphine 4 MG/ML Syringe IM ×2 (12:39→13:35)
--- NOTE | 2023-05-14 12:50 | CT_ITS ---
STUDY: CT BRAIN WITHOUT CONTRAST REASON FOR EXAM: Male, 77 years old. Head injury RADIATION DOSAGE (If Supplied By Facility): CTDIvol = ( 44.99 ) mGy, DLP = ( 829.85 ) mGycm TECHNIQUE: Transaxial CT imaging of the brain was performed without administration of intravenous contrast material. Individualized dose optimization techniques were used for this CT. COMPARISON: Comparison is made with prior study dated September 28, 2021. FINDINGS: Normal soft tissue structures. Normal calvarium. There is mild cerebral atrophy with widening of the extra-axial spaces and ventricular dilatation. There are areas of decreased attenuation within the white matter tracts of the supratentorial brain, consistent with microvascular disease changes. Stable focal area of the encephalomalacia in the base of the left frontal lobe. Normal basal ganglia and thalami. Normal brainstem. Normal cerebellum. There is no intracranial hemorrhage. There are no findings of an acute ischemic infarction. Atherosclerotic calcification of the vertebral arteries and cavernous portions of the internal carotid arteries bilaterally. Normal visualized paranasal sinuses. CT/Brain/Head without Contrast IMPRESSION: Chronic involutional changes of the brain. Stable focal area of encephalomalacia involving the inferior aspect of the left frontal lobe. Electronically Signed: Gustavo Pruett MD at 13:14 EST ,
--- NOTE | 2023-05-14 12:50 | RAD_ITS ---
STUDY: X-RAY - LEFT ELBOW REASON FOR EXAM: Male, 77 years old. Left elbow pain following a fall. TECHNIQUE: 3 view(s) of the elbow. COMPARISON: None. FINDINGS: Normal visualized humerus, radius and ulna. Normal radiocapitellar and ulnotrochlear articulations. The soft tissue structures are unremarkable. RAD/Elbow min 3 Views IMPRESSION: Normal x-ray examination of the elbow. Electronically Signed: Gustavo Pruett MD at 13:39 EST ,
--- NOTE | 2023-05-14 12:50 | CT_ITS ---
STUDY: CT LUMBAR SPINE WITHOUT CONTRAST REASON FOR EXAM: Male, 77 years old. Lumbar injury RADIATION DOSAGE (If Supplied By Facility): CTDIvol = ( 13.87 ) mGy, DLP = ( 520.98 ) mGycm TECHNIQUE: The patient was scanned in a multi detector CT scanner. High resolution transaxial imaging was performed. Images were obtained from L1 to S1 vertebrae. Sagittal and coronal images were reconstructed. Individualized dose optimization techniques were used for this CT. COMPARISON: None FINDINGS: Normal lumbar lordosis. There is no substantial scoliosis. Comparison loss of height of the superior endplate of the L1 vertebrae. This may represent a compression fracture. L1-2: 10% loss of height of the superior endplate of the L1 vertebrae. A compression fracture should be ruled out. L2-3: Normal endplates. Normal disc height and morphology. Normal bilateral facet joints. Normal central canal and bilateral lateral recesses. Normal bilateral intervertebral neural foramina. L3-4: Mild degree of anterior spondylolisthesis. Mild degree of diffuse posterior disc bulge causing mild degree of bilateral neural foraminal stenosis. Hypertrophy of the ligamentum flavum causing mild degree of central canal stenosis. L4-5: Moderate degree of diffuse posterior disc bulge. Hypertrophy of the facet joints causing bilateral neural foraminal stenosis. L5-S1: Normal endplates. Normal disc height and morphology. Normal bilateral facet joints. Normal central canal and bilateral lateral recesses. Normal bilateral intervertebral neural foramina. Atherosclerotic calcification of the aorta and the iliac arteries. CT/Spine Lumbar without Contrast IMPRESSION: Comparison loss of height of the superior endplate of the L1 vertebrae suggestive of compression fracture. Multilevel disc space narrowing with a diffuse posterior disc bulge and stenosis. Electronically Signed: Gustavo Pruett MD at 13:22 EST ,
--- NOTE | 2023-05-14 13:30 | EDS_ITS ---
HPI <CHRISTAL Allen - Last Filed: 05/14/23 13:45> History of Present Illness Chief Complaint: Fall Narrative Narrative: Patient is a 77-year-old male with history of pulmonary embolism on Coumadin, hypertension who presents to the emergency department after mechanical fall that occurred last evening. Patient dates he was cooking, slipped on some cooking oil fell on his butt, hit his head. He called his PCP, secondary to him being on Coumadin, striking his head as well as having significant back pain they told to come to the emergency department for imaging. Patient does have a prescription of Percocet at home, did take this with no little relief. He is here for evaluation. FORMERLY [facility], 1928–1983 <CHRISTAL Allen - Last Filed: 05/14/23 13:45> FORMERLY [facility], [facility]1983 Medical History Alcohol use Asthma Back pain Cardiology follow-up encounter Essential hypertension Former smoker GERD (gastroesophageal reflux disease) History of echocardiogram History of edema History of pain when walking History of stress test Hoarseness Hyperlipidemia Hypertension Injury of head and neck Kidney stone Left bundle branch block Lumbago-sciatica due to displacement of lumbar intervertebral disc Neuropathy Osteoarthritis Pulmonary embolism Wears glasses Home Medications lisinopril 20 mg-hydrochlorothiazide 12.5 mg tablet 2 tab PO DAILY 11/11/17 [History Last Taken 03/23/22] ascorbic acid (vitamin C) 1,000 mg tablet 1 g PO DAILY 12/16/18 [History Last Taken Unknown] coenzyme Q10 200 mg capsule 400 mg PO DAILY 12/16/18 [History Last Taken Unknown] cyanocobalamin (vitamin B-12) 2,500 mcg sublingual lozenge 2,500 mcg sublingual BID 12/16/18 [History Last Taken Unknown] fluticasone propionate 50 mcg/actuation nasal spray,suspension (Allergy Relief (fluticasone)) 1 spray intranasal DAILY 12/16/18 [History Last Taken Unknown] magnesium oxide 400 mg PO BID 12/16/18 [History Last Taken Unknown] multivitamin 2 tab PO DAILY 12/16/18 [History Last Taken Unknown] rosuvastatin 10 mg tablet (Crestor) 40 mg PO QHS 12/16/18 [History Last Taken Unknown] saw palmetto 450 mg capsule 450 mg PO BID 12/16/18 [History Last Taken Unknown] aspirin 81 mg tablet 81 mg PO DAILY 01/10/21 [History Last Taken Unknown] potassium chloride 10 mEq capsule,extended release 10 meq PO BID 01/10/21 [History Last Taken Unknown] warfarin 10 mg tablet 10 mg PO DAILY 01/10/21 [History Last Taken 03/18/22] famotidine 40 mg tablet 40 mg PO PRN PRN GERD 03/20/22 [History Last Taken Unknown] lorazepam 1 mg tablet 2 mg PO QHS PRN PRN Insomnia 03/20/22 [History Last Taken Unknown] oxycodone-acetaminophen 5 mg-325 mg tablet 1 tab PO PRN PRN Pain 03/20/22 [History Last Taken Unknown] oxycodone-acetaminophen 5 mg-325 mg tablet (Percocet) 1 tab PO Q8H PRN pain 3 days #10 tabs 05/14/23 [Rx Last Taken Unknown] pantoprazole 40 mg granules delayed-release for susp in packet (Protonix) 40 mg PO DAILY 05/14/23 [History Last Taken Unknown] Allergy/AdvReac Type Severity Reaction Status Date / Time cephalexin [From Keflex] Allergy Intermediate Rash Verified 05/14/23 12:04 cyclobenzaprine AdvReac Mild PT UNABLE Verified 05/14/23 12:08 TO RESPOND-NEEDS F/U gabapentin AdvReac Mild Other Verified 05/14/23 12:04 Family History Father , Age 74 CAD (coronary artery disease) Myocardial infarction Mother , age 104 No problems noted. Surgical History H/O colonoscopy with polypectomy History of hand surgery Hx of carotid angioplasty RFA of lumbar spine S/P IVC filter (~2011) Social History Smoking Status: Former smoker pack-years: 15 ROS <CHRISTAL Allen - Last Filed: 05/14/23 13:45> ROS ED ROS Narrative Constitutional: Negative for fever, chills, weight loss, weakness Eyes: Negative for vision loss, vision change, double vision ENT: Negative for any sore throat, ear pain, congestion Cardiovascular: Negative for any chest pain, tightness, palpitations Respiratory: Negative for any cough, sputum production, hemoptysis, dyspnea, dyspnea on exertion, orthopnea Gastrointestinal: Negative for any abdominal pain, nausea, vomiting, diarrhea, constipation, blood in stool, blood in vomit : Negative for any urinary frequency, dysuria, retention, blood in urine Muscle skeletal: Negative for any myalgias, arthralgias, neck pain. Positive lower back pain, left elbow pain Neurological: Negative for any headache, syncope, paresthesias, dizziness Skin: Negative for any rashes, lumps, itching, abrasions, lacerations Psychiatric: Negative for any depression, anxiety, stress, suicidal ideation, homicidal ideation Hematologic: Negative for any easy bruising, excessive bruising, easy bleeding Allergies: Negative for any eczema, hives, rash EXAM <CHRISTAL Allen - Last Filed: 05/14/23 13:45> Physical Exam Narrative Exam Narrative: Vital signs reviewed. HEET: Head normocephalic atraumatic, TMs clear bilaterally. Posterior pharynx is clear, moist mucous membranes. Nares clear bilaterally. Pupils equal round reactive to light. Negative for any hemotympanum, negative for any septal hematoma. Neck: Supple with no lymphadenopathy or tenderness. No signs of meningismus. Cardiac: Regular rate and rhythm no murmurs gallops or rubs, equal peripheral pulses bilaterally. Respiratory: Lungs clear to auscultation bilaterally. No chest tenderness. Abdomen: Soft, nontender, nondistended. No abdominal bruit or pulsatile masses. No hepatosplenomegaly Extremities: No peripheral edema, no signs of gross trauma or deformity. Active full range of motion of all extremities. Neuro: Cranial nerves II through XII intact, no focal neurological deficits. Skin: Clean dry and intact with no rash, purpura, petechiae, vesicles or pustules. Backs/flank: No CVA tenderness, no midline spinal tenderness, no deformity. Patient does have no midline spinal tenderness, patient does have significant pain to his lower lumbar spine paraspinal. No step-off deformity. Patient is worsening pain with movement. Active movement to bilateral lower extremities, equal. Psych: Normal mood and affect. No SI, HI or acute psychosis. Const Vital Signs: 05/14/23 12:01 05/14/23 13:34 Temperature 97.3 F L Temperature Source Temporal Pulse Rate 73 74 Respiratory Rate 16 18 Blood Pressure 138/93 H 122/71 H Blood Pressure Mean 108 88 Pulse Ox 98 94 Oxygen Delivery Method Room Air Room Air Positive well nourished and well developed General Appearance ED: well developed <Dr. Lisandro Mora MD - Last Filed: 05/14/23 14:05> Physical Exam Const Vital Signs: 05/14/23 12:01 05/14/23 13:34 Temperature 97.3 F L Temperature Source Temporal Pulse Rate 73 74 Respiratory Rate 16 18 Blood Pressure 138/93 H 122/71 H Blood Pressure Mean 108 88 Pulse Ox 98 94 Oxygen Delivery Method Room Air Room Air MDM <CHRISTAL Allen - Last Filed: 05/14/23 13:45> MDM Radiography Diagnostic Testing: Clinical Impression(s) from Imaging Studies Brain CT 05/14/23 12:50 IMPRESSION: Chronic involutional changes of the brain. Stable focal area of encephalomalacia involving the inferior aspect of the left frontal lobe. Electronically Signed: Gustavo Pruett MD at 13:14 EST , Elbow X-Ray 05/14/23 12:50 IMPRESSION: Normal x-ray examination of the elbow. Electronically Signed: Gustavo Pruett MD at 13:39 EST , Lumbar Spine CT 05/14/23 12:50 IMPRESSION: Comparison loss of height of the superior endplate of the L1 vertebrae suggestive of compression fracture. Multilevel disc space narrowing with a diffuse posterior disc bulge and stenosis. Electronically Signed: Gustavo Pruett MD at 13:22 EST , Treatment and Re-Evaluation :: Patient appears to be in mild distress secondary to lower back pain, presenting to the emergency department after mechanical fall, striking the back of his head and injuring his back. Differential diagnosis includes lumbar strain, lumbar fracture, closed head injury, skull fracture, intracranial hemorrhage. Patient did receive x-rays of the left elbow, this was unremarkable. Patient received IM morphine, Zofran ODT. On reevaluation, the patient was feeling better, he did request 1 more shot of IM pain medicine. Again x-ray of the left elbow was unremarkable. CT scan of the brain showed no acute process. Patient CT scan of the lumbar sacral spine showed a compression loss of height of the superior endplate of L1 vertebrae suggestive of compression fracture. Multi disc space narrowing. We did reach out to orthospine, patient will need to follow-up outpatient. Patient verbally understands the results. He will need to follow-up outpatient. All questions were answered, patient is happy the plan of care, he does have Percocet at home. Instructed form gentle stretching, he needs to follow-up with orthospine. He was given strict return precaution. He will return here for any worsening pain, nausea, vomiting, difficulty urinating or having a bowel movement. Patient stable for discharge. <Dr. Lisandro Mora MD - Last Filed: 05/14/23 14:05> MDM Radiography Diagnostic Testing: Clinical Impression(s) from Imaging Studies Brain CT 05/14/23 12:50 IMPRESSION: Chronic involutional changes of the brain. Stable focal area of encephalomalacia involving the inferior aspect of the left frontal lobe. Electronically Signed: Gustavo Pruett MD at 13:14 EST , Elbow X-Ray 05/14/23 12:50 IMPRESSION: Normal x-ray examination of the elbow. Electronically Signed: Gustavo Pruett MD at 13:39 EST , Lumbar Spine CT 05/14/23 12:50 IMPRESSION: Comparison loss of height of the superior endplate of the L1 vertebrae suggestive of compression fracture. Multilevel disc space narrowing with a diffuse posterior disc bulge and stenosis. Electronically Signed: Gustavo Pruett MD at 13:22 EST , Management Discussion w/another healthcare provider: Transit Survey Worker (Dr. Adams spine) Treatment and Re-Evaluation Comments:: I have personally performed a face to face assessment of the patient and have reviewed the JOSE L Note. I performed a substantive portion of the visit including all aspects of the following. My bautista findings include: History is accidental slip and fall this morning. Unsure if he landed on his buttocks but ended up on his back and has severe pain in his low back without any new neurologic symptoms or bowel or bladder dysfunction. He has chronic neuropathy in both feet for which he wears braces and that is unchanged. He bumped his head but states he does not think his head is injured. He is anticoagulated on warfarin because of a history of PEs in the past and told he will be anticoagulated for life. Exam is well-appearing in no distress neurovascularly intact distally both lower extremities at baseline with his chronic peripheral neuropathy. Painful with sitting up, no tenderness or obvious deformity in the midline spine, most of the pain is bilateral paraspinal upper lumbar. No signs of HEENT trauma. Medical Decison Making CT of the head obtained I reviewed the images and I agree with the report, negative for anything acute. We also obtained a CT of the lumbar spine given that that is where he was hurting, I reviewed the images and the report which I agree with which shows an L1 compression fracture. There is no prior back imaging available for comparison. As I discussed with the patient, I suspect this is acute and causing his symptoms. He is neurologically intact, he states he has Percocet at home but would like a prescription for some more which we will give him a short course. I discussed with Dr. Rogers with spine who agrees with supportive care until he can follow-up and then he can discuss options of brace, kyphoplasty, or otherwise. Patient cannot have any kyphoplasty today since he is anticoagulated on warfarin and will need to stop that temporarily. Patient indicates that he is going to need to see someone in the [facility] network which she is welcome to do but I do not have a contact locally to refer him. Other additions or changes: [None] Discharge Plan Triage Chief Complaint: Fall ED Midlevel Provider: Mckinley Varner ED Provider: Lisandro Mora Dx/Rx/DC Orders Clinical Impression: Compression fracture of lumbar vertebra, Contusion of elbow, Concussion, Fall Instructions: Compression Fx, ED Fracture, Vertebral Compression, ED Head Injury (Adult) Prescriptions: New oxycodone-acetaminophen [Percocet] 5-325 mg tablet 1 tab PO Q8H PRN (Reason: pain) 3 Days Qty: 10 0RF No Action lisinopril-hydrochlorothiazide 20-12.5 mg tablet 2 tab PO DAILY fluticasone propionate [Allergy Relief (fluticasone)] 50 mcg/actuation spray,suspension 1 spray INTRANASAL DAILY magnesium oxide 400 mg magnesium capsule 400 mg PO BID coenzyme Q10 200 mg capsule 400 mg PO DAILY multivitamin Tablet 2 tab PO DAILY ascorbic acid (vitamin C) 1,000 mg tablet 1 g PO DAILY saw palmetto 450 mg capsule 450 mg PO BID Patient Comments: supplement cyanocobalamin (vitamin B-12) 2,500 mcg lozenge 2,500 mcg SUBLINGUAL BID Patient Comments: supplement rosuvastatin [Crestor] 10 mg tablet 40 mg PO QHS warfarin 10 mg Tablet 10 mg PO DAILY potassium chloride 10 mEq capsule, extended release 10 meq PO BID aspirin 81 mg Tablet 81 mg PO DAILY famotidine 40 mg tablet 40 mg PO PRN PRN (Reason: GERD) Patient Comments: take 1 tablet by mouth once daily if needed oxycodone-acetaminophen 5-325 mg tablet 1 tab PO PRN PRN (Reason: Pain) Patient Comments: take 1 tablet by mouth every 4 hours if needed for pain for up to 7 days lorazepam 1 MG tablet 2 mg PO QHS PRN PRN (Reason: Insomnia) pantoprazole [Protonix] [address] for susp in packet 40 mg PO DAILY Primary Care Provider: Franc Hills Referrals: Jae Rogers DO [Med Staff - Active Staff] - Franc Hills MD [Primary Care Provider] - Activity Restrictions/Additional Instructions: You are referred to an orthopedic that specializes in spine. Of course you can see anyone that you wish. Please use the pain medicine as needed. Ice. Follow-up outpatient Disposition Disposition: Home, Self Care
[2023-05-14 13:34] VITALS: BP 122/71; PULSE 74; RESP 18; O2SAT 94
[2023-05-14 14:16] VITALS: BP 118/69; PULSE 68; RESP 14; O2SAT 93
--- NOTE | 2023-05-14 14:17 | ED.RN ---
PT WANTED TO STILL IN ED ROOM FOR AN HOUR UNTIL HIS RIDE WAS HERE.
== END 2023-05-14 14:19 | disposition home or self-care (01) ==
PROVIDERS: Emergency Provider Emergency Medicine; PCP Internal Medicine; Visit Provider Emergency Medicine
DX: S32.019A Unspecified fracture of first lumbar vertebra, initial encounter for closed fracture (principal); S06.0X0A Concussion without loss of consciousness, initial encounter; S50.02XA Contusion of left elbow, initial encounter; W01.10XA Fall on same level from slipping, tripping and stumbling with subsequent striking against unspecified object, initial encounter; Y93.G3 Activity, cooking and baking; I10 Essential (primary) hypertension; G62.9 Polyneuropathy, unspecified; E78.5 Hyperlipidemia, unspecified; J45.909 Unspecified asthma, uncomplicated; Z86.711 Personal history of pulmonary embolism; Z79.01 Long term (current) use of anticoagulants; Z79.899 Other long term (current) drug therapy; Z87.891 Personal history of nicotine dependence
CPT/HCPCS: 70450; 72131; 73080; 99282

== ENCOUNTER 2024-01-08 19:00 | Emergency (ER) | payer MEDICARE, SELFPAY ==
[2024-01-08 19:02] VITALS: BP 175/106; PULSE 105; RESP 18; TEMP 36.7; O2SAT 96; BMI 23.7
--- NOTE | 2024-01-08 19:27 | EKG12_ITS ---
Test Reason : CP Blood Pressure : / mmHG Vent. Rate : 099 BPM Atrial Rate : 099 BPM P-R Int : 148 ms QRS Dur : 128 ms QT Int : 350 ms P-R-T Axes : 039 023 215 degrees QTc Int : 449 ms Normal sinus rhythm Left bundle branch block Abnormal ECG Confirmed by CHRISTINE LINCOLN, MIKKI ([id number]), digital editor GEGE TURPIN ([id number]) on 01/12/2024 10:11:14 AM Referred By: Confirmed By:MIKKI KING MD
--- NOTE | 2024-01-08 19:32 | EX.ED.DYSGE1 ---
HPI History of Present Illness Chief Complaint: Dizziness Informant: patient Narrative Narrative: 78-year-old male states for a while he has been having episodes of lightheadedness and sweats. States sometimes his blood pressure is high when this happens like it was today in the 170s. However today, he has been having the sensation that he states is very difficult to describe, like a fan in my head. He states it feels like a bal. He has never had this before which is why he presents to the emergency department but states that the other symptoms have been off and on for weeks and he saw his doctor for it and had some blood work and an EKG that were unremarkable. He states prior to coming today he took an extra lisinopril in addition to the 1 that he took this morning. He also states he decided to take his warfarin earlier than usual in the day because he thought maybe the rash meant that his blood was not thin enough. He denies any chest discomfort or palpitations. No orthopnea but he does have dyspnea on exertion for the last couple weeks, just with walking from room to room in his apartment. States he has a minor cough but is nonproductive and does not feel like he has an illness, no fevers or chills. No leg edema. [facility] Medical History Wears glasses Alcohol use Kidney stone Back pain Injury of head and neck Former smoker Asthma Hoarseness History of pain when walking History of edema Hypertension History of echocardiogram History of stress test Cardiology follow-up encounter GERD (gastroesophageal reflux disease) Essential hypertension Lumbago-sciatica due to displacement of lumbar intervertebral disc Osteoarthritis Hyperlipidemia Neuropathy Left bundle branch block Pulmonary embolism Home Medications ?Medication ?Instructions ?Recorded ?Last Taken ?Type lisinopril 20 2 tab PO DAILY 11/11/17 03/23/22 History mg-hydrochlorothiazide 12.5 mg tablet ascorbic acid (vitamin C) 1,000 mg 1 g PO DAILY 12/16/18 Unknown History tablet coenzyme Q10 200 mg capsule 400 mg PO DAILY 12/16/18 Unknown History cyanocobalamin (vitamin B-12) 2,500 mcg sublingual BID 12/16/18 Unknown History 2,500 mcg sublingual lozenge fluticasone propionate 50 1 spray intranasal DAILY 12/16/18 Unknown History mcg/actuation nasal spray,suspension (Allergy Relief (fluticasone)) magnesium oxide 400 mg PO BID 12/16/18 Unknown History multivitamin 2 tab PO DAILY 12/16/18 Unknown History rosuvastatin 10 mg tablet (Crestor) 40 mg PO QHS 12/16/18 Unknown History saw palmetto 450 mg capsule 450 mg PO BID 12/16/18 Unknown History aspirin 81 mg tablet 81 mg PO DAILY 01/10/21 Unknown History potassium chloride 10 mEq 10 meq PO BID 01/10/21 Unknown History capsule,extended release warfarin 10 mg tablet 10 mg PO DAILY 01/10/21 03/18/22 History famotidine 40 mg tablet 40 mg PO PRN PRN GERD 03/20/22 Unknown History lorazepam 1 mg tablet 2 mg PO QHS PRN PRN Insomnia 03/20/22 Unknown History oxycodone-acetaminophen 5 mg-325 1 tab PO PRN PRN Pain 03/20/22 Unknown History mg tablet oxycodone-acetaminophen 5 mg-325 1 tab PO Q8H PRN pain 3 days #10 05/14/23 Unknown Rx mg tablet (Percocet) tabs pantoprazole 40 mg granules 40 mg PO DAILY 05/14/23 Unknown History delayed-release for susp in packet (Protonix) clonidine HCl 0.1 mg tablet 0.1 - 0.2 mg (1 - 2 x 0.1 mg) PO 01/08/24 Unknown Rx TID PRN SBP>165 #15 tabs Allergy/AdvReac Type Severity Reaction Status Date / Time cephalexin (From Keflex) Allergy Intermediate Rash Verified 01/08/24 19:05 cyclobenzaprine AdvReac Mild PT UNABLE Verified 01/08/24 19:05 TO RESPOND-NEEDS F/U gabapentin AdvReac Mild Other Verified 01/08/24 19:05 Family History Father , Age 74 CAD (coronary artery disease) Myocardial infarction Mother , age 104 No problems noted. Surgical History H/O colonoscopy with polypectomy History of hand surgery Hx of carotid angioplasty RFA of lumbar spine S/P IVC filter (~2011) Social History Smoking Status: Former smoker pack-years: 15 ROS ROS ED Constitutional Constitutional ED: Denies chills or fever(s) Eyes Eyes: Denies change in vision or diplopia ENT ENT ED: Denies rhinorrhea or sore throat Cardiovascular Cardiovascular: Reports lightheadedness; Denies chest pain, leg edema, orthopnea, palpitations, radiating jaw, neck or arm pain or syncope Respiratory/Chest Respiratory/Chest: Reports cough and dyspnea on exertion; Denies orthopnea Gastrointestinal Gastrointestinal: Denies abdominal pain, diarrhea, nausea or vomiting Genitourinary Genitourinary ED: Denies dysuria or hematuria Musculoskeletal Musculoskeletal: Denies back pain or neck pain Integumentary Denies abscess or rash Neurologic Neurologic: Reports paresthesias and other Details: Bilateral lower extremity numbness due to peripheral neuropathy ; Denies headache(s) or weakness Psychiatric Psychiatric: Denies anxiety or suicidal thoughts EXAM Physical Exam Const Vital Signs: 01/08/24 19:02 01/08/24 19:38 01/08/24 21:02 Temperature 98.1 F Temperature Source Temporal Pulse Rate 105 H 82 Respiratory Rate 18 23 H Blood Pressure 175/106 H 152/77 H Blood Pressure Mean 129 102 Pulse Ox 96 96 Oxygen Delivery Method Room Air Room Air Room Air Positive well nourished and well developed General Appearance ED: well developed and NAD HEENT Reports moist mucous membranes normocephalic and atraumatic Eyes PERRL and EOMs intact bilaterally Neck full ROM and supple Resp normal respiratory effort and clear to auscultation bilaterally Cardio regular rate, regular rhythm and no murmurs GI non-tender and non-distended Auscultation: normoactive bowel sounds Palpation: soft Back/Spine no CVA tenderness General Back: other FROM Extremity normal to inspection General Extremety ED: Negative for edema, pulses abnormal or tenderness General Extremity: Negative for edema or pulses abnormal Neuro oriented x3, CN's II-XII intact bilaterally and no sensory deficits noted Sensorium / Orientation: awake and alert Motor Exam: strength 5/5 throughout Psych mental status grossly normal Skin no rashes or lesions noted and no wounds MDM MDM MDM Narrative Medical decision making narrative: Unclear what this sensation is in the patient's head but he denies headache or any focal neurologic symptoms. For that reason I do not think he needs an emergent CT of the head although we considered it. I did do a cardiac workup and a screening 1 view chest x-ray which in my interpretation shows some chronic changes but no acute widening of the mediastinum or other acute abnormality. His EKG shows left bundle branch block this is the same as his prior EKG but I see no acute injury pattern or major changes. While obtaining this workup, the rest of which looks unremarkable with a therapeutic INR of 2.2, I gave him clonidine 0.1 mg. Over the next couple hours he brought his blood pressure down to 130/100 and he states that between the pressure going down to that from 152/77, that the sensation in his head has resolved and now he is asymptomatic and with no other treatments, his heart rate is down to 82;. My best educated guess based on the information and his symptoms is that this was related to his high blood pressure. I am going to have him continue his usual dosing of his antihypertensives and give him a prescription for clonidine to use as needed over the weekend until he can follow-up with his doctor for recheck and reevaluation he is comfortable with that plan. Lab Data Attestation: I reviewed the patient's lab results. Labs: Laboratory Results - last 24 hr 01/08/24 19:35 WBC 8.2 RBC 5.12 Hgb 15.8 Hct 48.2 MCV 94.1 H MCH 30.9 MCHC 32.8 RDW Std Deviation 48.1 H RDW Coeff of Uyen 13.9 Plt Count 210 MPV 9.1 Immature Gran % (Auto) 0.100 Neut % (Auto) 50.2 Lymph % (Auto) 36.3 [place] % (Auto) 9.1 Eos % (Auto) 3.6 Baso % (Auto) 0.7 Absolute Neuts (auto) 4.1 Absolute Lymphs (auto) 2.99 Nucleated RBC % 0 PT 24.2 H INR 2.2 Sodium 143 Potassium 4.1 Chloride 114 H Carbon Dioxide 24.0 Anion Gap 4 L BUN 22 H Creatinine 0.76 Estim Creat Clear Calc 83.23 Est GFR (MDRD) Af Amer 127 Est GFR (MDRD) Non-Af 105 BUN/Creatinine Ratio 28.9 H Glucose 124 H Calcium 9.3 Troponin I High Sens 18 B-Natriuretic Peptide 17.2 Radiography Diagnostic Testing: Clinical Impression(s) from Imaging Studies Chest X-Ray 01/08/24 19:45 IMPRESSION: Ill-defined pulmonary densities of the lung bases suggestive of scarring or subsegmental atelectasis. No definite pneumonia. Electronically Signed: Jake Duckworth MD at 20:49 EDT , Rhythm Strip Rhythm Strip: Sinus Rhythm Rate: 108 Ectopy: None EKG Initial EKG: Attestation: I personally reviewed and interpreted this EKG as follows: Interpretation: No Acute Injury Pattern, Sinus Tachycardia and LBBB Prior EKG tracings: available for review Prior: Unchanged Discharge Plan Triage Chief Complaint: Dizziness ED Provider: Lisandro Mora Dx/Rx/DC Orders Clinical Impression: Accelerated hypertension, Left bundle branch block, Intermittent lightheadedness, Warfarin-induced coagulopathy Instructions: ED Hypertension, Established Prescriptions: New clonidine HCl 0.1 mg tablet 0.1 - 0.2 mg PO TID PRN (Reason: SBP>165) Qty: 15 0RF No Action lisinopril-hydrochlorothiazide 20-12.5 mg tablet 2 tab PO DAILY fluticasone propionate [Allergy Relief (fluticasone)] 50 mcg/actuation spray,suspension 1 spray INTRANASAL DAILY magnesium oxide 400 mg magnesium capsule 400 mg PO BID coenzyme Q10 200 mg capsule 400 mg PO DAILY multivitamin Tablet 2 tab PO DAILY ascorbic acid (vitamin C) 1,000 mg tablet 1 g PO DAILY saw palmetto 450 mg capsule 450 mg PO BID Patient Comments: supplement cyanocobalamin (vitamin B-12) 2,500 mcg lozenge 2,500 mcg SUBLINGUAL BID Patient Comments: supplement rosuvastatin [Crestor] 10 mg tablet 40 mg PO QHS warfarin 10 mg Tablet 10 mg PO DAILY potassium chloride 10 mEq capsule, extended release 10 meq PO BID aspirin 81 mg Tablet 81 mg PO DAILY famotidine 40 mg tablet 40 mg PO PRN PRN (Reason: GERD) Patient Comments: take 1 tablet by mouth once daily if needed oxycodone-acetaminophen 5-325 mg tablet 1 tab PO PRN PRN (Reason: Pain) Patient Comments: take 1 tablet by mouth every 4 hours if needed for pain for up to 7 days lorazepam 1 MG tablet 2 mg PO QHS PRN PRN (Reason: Insomnia) pantoprazole [Protonix] [address] for susp in packet 40 mg PO DAILY oxycodone-acetaminophen [Percocet] 5-325 mg tablet 1 tab PO Q8H PRN (Reason: pain) 3 Days Qty: 10 0RF Primary Care Provider: Aleja Gallardo NP Referrals: Franc Hills MD [Med Staff - Pharmacy Intake Technician] - As soon as possible Print Language: Danish Disposition Disposition: Home, Self Care
--- NOTE | 2024-01-08 19:45 | RAD_ITS ---
STUDY: X-RAY CHEST REASON FOR EXAM: Male, 78 years old. dizziness TECHNIQUE: Single AP portable view of the chest. COMPARISON: 01/12/2019. FINDINGS: Normal lung volumes. Ill-defined pulmonary densities of the lung bases suggestive of scarring or subsegmental atelectasis. No definite pneumonia. No definite effusions. Normal size heart. Normal mediastinum and tricia. There is prominence of the pulmonary hilar arteries without peripheral pulmonary vascular congestion, suggesting pulmonary hypertension. Normal visualized aortic arch and descending thoracic aorta. Normal visualized thoracic spine. Normal visualized ribs, clavicles, and shoulders. There is no demonstrated abnormality of the visualized soft tissue structures of the upper abdomen. RAD/Chest 1 View (Portable) IMPRESSION: Ill-defined pulmonary densities of the lung bases suggestive of scarring or subsegmental atelectasis. No definite pneumonia. Electronically Signed: Jake Duckworth MD at 20:49 EDT ,
[2024-01-08 19:46] LABS: Absolute Lymphocyte Count 2.99 X10^3/uL (0.83-4.51); Absolute Neutrophil Count 4.1 X10^3/uL (2.0-7.7); Basophil# 0.06 X10^3/uL; Basophil% 0.7 % (0-1); Eosinophils% 3.6 % (0-5); Hematocrit 48.2 % (40-54); Hemoglobin 15.8 g/dL (13.0-16.5); Lymphocyte # 2.99 X10^3/ul (0.83-4.51); Lymphocyte % 36.3 % (19-41); Mean Corp Hgb Conc 32.8 g/dL (32-36); Mean Corpuscular Hgb 30.9 pg (27.0-32.0); Mean Corpuscular Volume 94.1 fL (80-94); Mean Platelet Vol. 9.1 fl (6.2-12.0); Monocyte# 0.75 X10^3/uL; Monocyte% 9.1 % (0-10); NRBC Flagged by Analyzer 0 % (0-5); Neutrophil # 4.13 X10^3/uL (2.7-7.7); Neutrophil % 50.2 % (47-70); Platelet Count 210 K/mm3 (150-450); RBC Distribution Width CV 13.9 % (11.6-14.6); RBC Distribution Width SD 48.1 fl (35.1-43.9); Red Blood Count 5.12 M/mm3 (4.6-6.2); White Blood Count 8.2 K/mm3 (4.4-11.0)
[2024-01-08] MEDS: cloNIDine HCl 0.1 MG Tablet PO (19:54)
[2024-01-08 19:58] LABS: International Normalized Ratio 2.2; Prothrombin Time (Protime)PT. 24.2 SECONDS (11.7-14.9)
[2024-01-08 20:08] LABS: Anion Gap 4 (5-15); BUN 22 mg/dL (7-18); BUN/Creat Ratio 28.9 RATIO (10-20); Calcium,Total 9.3 mg/dL (8.5-10.1); Chloride 114 mmol/L (98-107); Creatinine, Serum 0.76 mg/dL (0.70-1.30); EST Glomerular Filtration Rate 105 mL/min (>60); Est Glom Filt Rate - Afr Amer 127 mL/min (>60); Estimated Creatinine Clearance 83.23 ml/min; Glucose 124 mg/dL (74-106); Potassium 4.1 mmol/L (3.5-5.1); Sodium Level 143 mmol/L (136-145); Troponin-I HS 18 pg/mL (3.0-78.0)
[2024-01-08 20:10] LABS: BNP,B-Type NATRIURETIC PEPTIDE 17.2 pg/mL (0-100)
[2024-01-08 21:02] VITALS: BP 152/77; PULSE 82; RESP 23; O2SAT 96
[2024-01-08 22:07] VITALS: BP 149/92; PULSE 71; RESP 18; TEMP 36.9; O2SAT 96
== END 2024-01-08 22:08 | disposition home or self-care (01) ==
PROVIDERS: Emergency Provider Emergency Medicine; PCP Internal Medicine; Visit Provider Emergency Medicine
DX: I10 Essential (primary) hypertension (principal); R42 Dizziness and giddiness; R79.1 Abnormal coagulation profile; T45.515A Adverse effect of anticoagulants, initial encounter; I44.7 Left bundle-branch block, unspecified; E78.5 Hyperlipidemia, unspecified; Z79.82 Long term (current) use of aspirin; Z79.01 Long term (current) use of anticoagulants; Z79.899 Other long term (current) drug therapy; Z87.891 Personal history of nicotine dependence; R05.9 Cough, unspecified; R06.09 Other forms of dyspnea
CPT/HCPCS: 71045; 80048; 83880; 84484; 85025; 85610; 93005; 99284; A4216

== ENCOUNTER 2024-11-19 19:05 | Day surgery (SDC) | payer MEDICARE, SELFPAY ==
[2024-11-19 19:08] VITALS: BP 130/82; PULSE 69; RESP 16; TEMP 36.6; O2SAT 92; BMI 25.1
--- NOTE | 2024-11-19 19:58 | ED.VIS.GI ---
HPI HPI - GI History of Present Illness Chief Complaint: Foreign Body Informant: patient Narrative Narrative: Patient is a 1-year-old male with history of PE, hypertension and COPD (on Coumadin) presenting with concern of chicken stuck in his throat. Patient states he got up chicken today was eating dinner. Prior to this he was in his normal state of health. He ate a bite of chicken and felt like a piece got stuck in his chest. He sat there for a while. Ultimately threw up. States he throat mucous infection was eating. He feels like he threw up a little bit of the chicken but then he swallowed it again and it feels like it is still stuck. He continues to have vomiting of mostly liquid and mucus at this point. He has had this happen before but never had to come to the hospital for it. States he does not chew his food very thoroughly. Is never had an EGD. No other complaints or concerns at this time. Denies any shortness of breath or difficulty breathing. Denies any choking episode. [facility] Medical History Wears glasses Alcohol use Kidney stone Back pain Injury of head and neck Former smoker Asthma Hoarseness History of pain when walking History of edema Hypertension History of echocardiogram History of stress test Cardiology follow-up encounter GERD (gastroesophageal reflux disease) Essential hypertension Lumbago-sciatica due to displacement of lumbar intervertebral disc Osteoarthritis Hyperlipidemia Neuropathy Left bundle branch block Pulmonary embolism Home Medications ?Medication ?Instructions ?Recorded ?Last Taken ?Type lisinopril 20 2 tab PO DAILY 11/11/17 03/23/22 History mg-hydrochlorothiazide 12.5 mg tablet ascorbic acid (vitamin C) 1,000 mg 1 g PO DAILY 12/16/18 Unknown History tablet coenzyme Q10 200 mg capsule 400 mg PO DAILY 12/16/18 Unknown History cyanocobalamin (vitamin B-12) 2,500 mcg sublingual BID 12/16/18 Unknown History 2,500 mcg sublingual lozenge fluticasone propionate 50 1 spray intranasal DAILY 12/16/18 Unknown History mcg/actuation nasal spray,suspension (Allergy Relief (fluticasone)) magnesium oxide 400 mg PO BID 12/16/18 Unknown History multivitamin 2 tab PO DAILY 12/16/18 Unknown History rosuvastatin 10 mg tablet (Crestor) 40 mg PO QHS 12/16/18 Unknown History saw palmetto 450 mg capsule 450 mg PO BID 12/16/18 Unknown History aspirin 81 mg tablet 81 mg PO DAILY 01/10/21 Unknown History potassium chloride 10 mEq 10 meq PO BID 01/10/21 Unknown History capsule,extended release warfarin 10 mg tablet 10 mg PO DAILY 01/10/21 03/18/22 History famotidine 40 mg tablet 40 mg PO PRN PRN GERD 03/20/22 Unknown History lorazepam 1 mg tablet 2 mg PO QHS PRN PRN Insomnia 03/20/22 Unknown History oxycodone-acetaminophen 5 mg-325 1 tab PO PRN PRN Pain 03/20/22 Unknown History mg tablet oxycodone-acetaminophen 5 mg-325 1 tab PO Q8H PRN pain 3 days #10 05/14/23 Unknown Rx mg tablet (Percocet) tabs pantoprazole 40 mg granules 40 mg PO DAILY 05/14/23 Unknown History delayed-release for susp in packet (Protonix) clonidine HCl 0.1 mg tablet 0.1 - 0.2 mg (1 - 2 x 0.1 mg) PO 01/08/24 Unknown Rx TID PRN SBP>165 #15 tabs Allergy/AdvReac Type Severity Reaction Status Date / Time cephalexin (From Keflex) Allergy Intermediate Rash Verified 11/19/24 19:08 cyclobenzaprine AdvReac Mild PT UNABLE Verified 11/19/24 19:08 TO RESPOND-NEEDS F/U gabapentin AdvReac Mild Other Verified 11/19/24 19:08 Family History Father , Age 74 CAD (coronary artery disease) Myocardial infarction Mother , age 104 No problems noted. Surgical History Hx of carotid angioplasty H/O colonoscopy with polypectomy RFA of lumbar spine S/P IVC filter (~2011) History of hand surgery Social History Smoking Status: Former smoker pack-years: 15 ROS ROS ED Constitutional Constitutional ED: Denies chills or fever(s) Cardiovascular Cardiovascular: Denies chest pain Respiratory/Chest Respiratory/Chest: Denies cough or dyspnea Gastrointestinal Gastrointestinal: Reports nausea and vomiting; Denies abdominal pain Hematologic/Lymphatic Hematologic/Lymphatic: Reports easy bleeding, easy bruising and other Details: On Coumadin EXAM Physical Exam Const Vital Signs: 11/19/24 19:08 11/19/24 21:07 11/19/24 23:00 Temperature 98 F Temperature Source Oral Pulse Rate 69 80 85 Respiratory Rate 16 20 H Blood Pressure 130/82 H 120/78 178/90 H Blood Pressure Mean 98 92 119 Pulse Ox 92 96 93 Oxygen Delivery Method Room Air Positive well nourished and well developed General Appearance ED: well developed; Negative for pallor HEENT Reports moist mucous membranes HEENT Narrative: No trismus, no drooling Neck supple and no JVD Resp normal respiratory effort Resp Narrative: Faint end expiratory wheeze in the left upper lung field Effort and Inspection: Negative for respiratory distress Auscultation: Negative for diminished lung sounds Cardio regular rate and regular rhythm GI non-tender and non-distended Neuro moves all extremities Sensorium / Orientation: alert, oriented to person, oriented to place and oriented to time Motor Exam: Negative for general weakness Psych mental status grossly normal and thought process normal Skin General Skin Exam: Negative for jaundice or pallor MDM MDM MDM Narrative Medical decision making narrative: Patient valuated for vomiting and foreign body sensation after eating chicken. Concern for esophageal food impaction. Differential also includes esophagitis, gastritis and globus hystericus. Is otherwise asymptomatic no sudden onset after eating low suspicion for bowel obstruction. Patient is given IV glucagon and Zofran will reevaluate. No improvement with this. I did try having him jump up and down with that diet Coke. He did vomit up a whole piece of broccoli but continues to have further symptoms of esophageal impaction and console not tolerate p.o. I spoke with GI on-call, Dr. Simmons, who states that due to OR/anesthesia staffing we will need to scope within the morning to relieve the impaction. Did try IV Ativan per recommendation of GI with no improvement either. Patient is on a maintenance fluids as he cannot take anything by mouth. At baseline labs obtained including CBC, INR and BMP. He does have a mild leukocytosis of 13.2 by suspect is reactive from vomiting. Hemoglobin mildly concentrated 16.8. INR is therapeutic at 2.0. Bicarb mildly low at 15.4 and all this is more consistent with dehydration. Again patient is getting IV fluids in the ER. His creatinine is normal. Patient signed out to oncoming physician pending endoscopy in the morning anticipate discharge home after that for removal of esophageal food impaction. Lab Data Attestation: I reviewed the patient's lab results. Labs: Laboratory Results - last 24 hr 11/20/24 00:29 WBC 13.2 H RBC 5.32 Hgb 16.8 H Hct 50.1 MCV 94.2 H MCH 31.6 MCHC 33.5 RDW Std Deviation 48.7 H RDW Coeff of Uyen 14.2 Plt Count 155 MPV 10.4 Immature Gran % (Auto) 0.300 Neut % (Auto) 83.7 H Lymph % (Auto) 12.2 L [place] % (Auto) 3.3 Eos % (Auto) 0.1 Baso % (Auto) 0.4 Absolute Neuts (auto) 11.1 H Absolute Lymphs (auto) 1.61 Nucleated RBC % 0 PT 22.7 H INR 2.0 Sodium 140 Potassium 4.6 Chloride 110 H Carbon Dioxide 15.4 L Anion Gap 15 BUN 15 Creatinine 0.83 Estim Creat Clear Calc 78.88 Est GFR (MDRD) Non-Af 88 BUN/Creatinine Ratio 17.4 Glucose 104 H Calcium 9.1 Management Discussion w/another healthcare provider: Fire Technician (GI) Discharge Plan Triage Chief Complaint: Foreign Body ED Provider: Danielle Han Dx/Rx/DC Orders Clinical Impression: Esophageal obstruction due to food impaction, 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, Dehydration, mild Prescriptions: No Action lisinopril-hydrochlorothiazide 20-12.5 mg tablet 2 tab PO DAILY fluticasone propionate [Allergy Relief (fluticasone)] 50 mcg/actuation spray,suspension 1 spray INTRANASAL DAILY magnesium oxide 400 mg magnesium capsule 400 mg PO BID coenzyme Q10 200 mg capsule 400 mg PO DAILY multivitamin Tablet 2 tab PO DAILY ascorbic acid (vitamin C) 1,000 mg tablet 1 g PO DAILY saw palmetto 450 mg capsule 450 mg PO BID Patient Comments: supplement cyanocobalamin (vitamin B-12) 2,500 mcg lozenge 2,500 mcg SUBLINGUAL BID Patient Comments: supplement rosuvastatin [Crestor] 10 mg tablet 40 mg PO QHS warfarin 10 mg Tablet 10 mg PO DAILY potassium chloride 10 mEq capsule, extended release 10 meq PO BID aspirin 81 mg Tablet 81 mg PO DAILY famotidine 40 mg tablet 40 mg PO PRN PRN (Reason: GERD) Patient Comments: take 1 tablet by mouth once daily if needed oxycodone-acetaminophen 5-325 mg tablet 1 tab PO PRN PRN (Reason: Pain) Patient Comments: take 1 tablet by mouth every 4 hours if needed for pain for up to 7 days lorazepam 1 MG tablet 2 mg PO QHS PRN PRN (Reason: Insomnia) pantoprazole [Protonix] [address] for susp in packet 40 mg PO DAILY oxycodone-acetaminophen [Percocet] 5-325 mg tablet 1 tab PO Q8H PRN (Reason: pain) 3 Days Qty: 10 0RF clonidine HCl 0.1 mg tablet 0.1 - 0.2 mg PO TID PRN (Reason: SBP>165) Qty: 15 0RF Primary Care Provider: Teri Elizondo NP Referrals: Aleja Gallardo NP, [facility] [Non-Staff -Ordering Privileges] - Print Language: Sinhala
[2024-11-19] MEDS: Glucagon 1 MG/ML Syringe IV (20:11)
--- OUTSIDE RECORDS SUMMARY | 2024-11-19 20:17 | XMS RPT_ITS | CCD ---
Author Organization [facility] Inform ion Partnership 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 Name Role Phone Franc Hills MD Primary Care Provider [phone] Masci DO, Mckinley A Unavailable Raya LINCOLN, Mj Unavailable Masci DO, Mckinley A Unavailable Raya LINCOLN, Mj Unavailable Mani Edwards MD Primary Care Provider Reinier LINCOLN, Franc Alegre Primary Care Provider [phone] Masckyung MEYERS Mckinley A Unavailable Reinier LINCOLN, Franc Alegre Primary Care Provider [phone] Reinier LINCOLN, Franc Alegre Primary Care Provider [phone] Reinier LINCOLN, Franc Alegre Primary Care Provider [phone] Raya LINCOLN, Mj Unavailable Franc Hills MD Primary Care Provider [phone] Genaro AUTISTIC TEACHER.Zeny GARZA Primary Care Provider [phone] Genaro AUTISTIC TEACHER.Zney GARZA Primary Care Provider [phone] Franc Hills MD Primary Care Provider [phone] Genaro AUTISTIC TEACHER.KAYLA, Zeny Primary Care Provider [phone] Franc Hills MD Primary Care Provider [phone] Franc Hills MD Primary Care Provider Lisandro Mora Attending Unavailable Franc Hills Primary Care Unavailable Lisandro Mora Attending Unavailable Genaro GRAIN SACKER, Zeny Primary Care Unavailable Genaro AUTISTIC TEACHER.DELIVERY CLERK, Zeny Knowles Primary Care Provider Genaro AUTISTIC TEACHER.DELIVERY CLERK, Zeny Primary Care Provider WALT YANG Attending Unavailable GENARO, ZENY Referring Unavailable GENARO, ZENY Primary Care Unavailable CELIA, WALT Attending Unavailable GENARO, ZENY Referring Unavailable GENARO, ZENY Primary Care Unavailable CELIA, WALT Attending Unavailable IRENE MORAES Referring Unavailable GENARO, ZENY Primary Care Unavailable EDGAR LOAIZA Referring Unavailable GENARO, ZENY Primary Care Unavailable GAYLE GREEN Attending Unavailable GENARO, ZENY Primary Care Unavailable GENARO, ZENY Primary Care Unavailable MIRLANDE FUNEZ Referring Unavailable GENARO, ZENY Primary Care Unavailable GENARO, ZENY Referring Unavailable MIRLANDE FUNEZ Attending Unavailable GENARO, ZENY Primary Care Unavailable GENARO, ZENY Primary Care Unavailable GENARO, ZENY Primary Care Unavailable TERI GRUBER Referring Unavailable GENARO, ZENY Primary Care Unavailable GENARO, ZENY Referring Unavailable GENARO, ZENY Primary Care Unavailable GENARO, ZENY Referring Unavailable GENARO, ZENY Primary Care Unavailable GENARO, ZENY Referring Unavailable GENARO, ZENY Primary Care Unavailable GENARO, ZENY Attending Unavailable GENARO, ZENY Primary Care Unavailable GENARO, ZENY Referring Unavailable GENARO, ZENY Primary Care Unavailable GENARO, ZENY Attending Unavailable GENARO, ZENY Primary Care Unavailable GENARO, ZENY Referring Unavailable GENARO, ZENY Primary Care Unavailable GENARO, ZENY Referring Unavailable GENARO, ZENY Primary Care Unavailable GENARO, ZENY Referring Unavailable GENARO, ZENY Primary Care Unavailable SUNNY MERCEDES Attending Unavailable SUNNY MERCEDES Referring Unavailable GENARO, ZENY Primary Care Unavailable GENARO, ZENY Referring Unavailable GENARO, ZENY Primary Care Unavailable GENARO, ZENY Referring Unavailable GENARO, ZENY Primary Care Unavailable MIRLANDE FUNEZ Referring Unavailable GENARO, ZENY Primary Care Unavailable KENDALLAMPAS, MANI D Referring Unavailable GENARO, ZENY Primary Care Unavailable GENARO, ZENY Primary Care Unavailable GENARO, ZENY Primary Care Unavailable GENARO, ZENY Primary Care Unavailable GENARO, ZENY Primary Care Unavailable GENARO, ZENY Primary Care Unavailable GENARO, ZENY Attending Unavailable GENARO, ZENY Primary Care Unavailable GENARO, ZENY Primary Care Unavailable GENARO, ZENY Referring Unavailable GENARO, ZENY Primary Care Unavailable GENARO, ZENY Attending Unavailable GENARO, ZENY Primary Care Unavailable TALAMPAS, MANI D Referring Unavailable GENARO, ZENY Primary Care Unavailable TALAMPAS, MANI D Referring Unavailable GENARO, ZENY Primary Care Unavailable YASMANI, TERI Referring Unavailable GENARO, ZENY Primary Care Unavailable YASMANI, TERI Attending Unavailable GENARO, ZENY Referring Unavailable GENARO, ZENY Primary Care Unavailable GENARO, ZENY Referring Unavailable GENARO, ZENY Primary Care Unavailable GENARO, ZENY Referring Unavailable GENARO, ZENY Primary Care Unavailable GENARO, ZENY Referring Unavailable GENARO, ZENY Primary Care Unavailable TESTRAKE, GAYLE Attending Unavailable TESTRAKE, GAYLE Referring Unavailable GENARO, ZENY Primary Care Unavailable GENARO, ZENY Primary Care Unavailable GENARO, ZENY Primary Care Unavailable GENARO, ZENY Attending Unavailable KVNG MCNAMARA Attending Unavailable GENARO, ZENY Primary Care Unavailable GENARO, ZENY Primary Care Unavailable YASMANI, TERI Referring Unavailable YASMANI, TERI Referring Unavailable GENARO, ZENY Primary Care Unavailable GENARO, ZENY Primary Care Unavailable GENARO, ZENY Primary Care Unavailable GENARO, ZENY Attending Unavailable GENARO, ZENY Primary Care Unavailable SELF Referring Unavailable GENARO, ZENY Attending Unavailable GENARO, ZENY Primary Care Unavailable GENARO, ZENY Primary Care Unavailable EDGAR LOAIZA Attending Unavailable EDGAR LOAIZA Referring Unavailable GENARO, ZENY Primary Care Unavailable GENARO, ZENY Primary Care Unavailable GENARO, ZENY Referring Unavailable GENARO, ZENY Primary Care Unavailable GENARO, ZENY Primary Care Unavailable GENARO, EZNY Referring Unavailable GENARO, ZENY Primary Care Unavailable GENARO, ZENY Attending Unavailable GENARO, ZENY Primary Care Unavailable GENARO, ZENY Referring Unavailable GENARO, ZENY Primary Care Unavailable Allergies Allergy Classification Reported Allergen(s) Allergy Type Date of Onset Reaction(s) Facility Anti-Epileptic Agents (1 source) gabapentin Drug Allergy 3 Intolerance [facility] Cephalosporins (antibiotic) (1 source) Cephalexin Drug Allergy 5 Rash [facility] cyclobenzaprine (1 source) cyclobenzaprine Drug Allergy 3 Other: See Comments [facility] Work Phone: (20 sources) Cephalexin; Translations: [CEPHALEXIN] Drug Allergy 5 Rash [facility] (20 sources) Warfarin Drug Allergy 0 Rash [facility] (20 sources) cyclobenzaprine; Translations: [CYCLOBENZAPRINE] Drug Allergy 3 Other: See Comments [facility] Work Phone: (20 sources) gabapentin; Translations: [GABAPENTIN] Drug Allergy 3 Intolerance [facility] Work Phone: (1 source) Cephalexin Drug Allergy 4 [facility] (1 source) cyclobenzaprine Drug Allergy 4 [facility] (1 source) gabapentin Drug Allergy 4 [facility] Medications Current Medications Medication Drug Class(es) Dates Sig (Normalized) Sig (Original) acetaminophen 325 mg / oxyCODONE hydrochloride 7.5 mg oral tablet (20 sources) Opioid Agonist Start: 11-11-2024 End: 11-18-2024 take 1 tablet by mouth every six hours as needed for pain oxyCODONE-acetamin ophen (PERCOCET) 7.5-325 mg tablet Indications: Chronic low back pain without sciatica, unspecified back pain laterality , Neck pain Take 1 tablet by mouth every 6 hours as needed for pain for up to 7 days. 28 tablet 11/11/2024 11/18/2024 Active Start: 02-15-2024 End: 09-12-2024 take 1 tablet by mouth every six hours as needed for pain oxyCODONE-acetaminophen (PERCOCET) 7.5-3 25 mg tablet Indications: Chronic low back pain without sciatica, unspecified back pain laterality , Neck pain Take 1 tablet by mouth every 6 hours as needed for pain for up to 7 days. 28 tablet 09/05/2024 Active Start: 04-17-2023 End: 02-15-2024 take 1 tablet by mouth every six hours as needed for pain oxyCODONE-acetaminophen (PERCOCET) 5-325 mg tablet Indications: Pain, dental , Compression fracture of L1 vertebra with routine healing, subsequent encounter , Chronic low back pain without sciatica, unspecified back pain laterality Take 1 tablet by mouth every 6 hours as needed for pain for up to 7 days. 28 tablet 12/14/2023 02/15/2024 Discontinued Start: 02-23-2023 End: 03-02-2023 take 1 tablet by mouth every six hours as needed for pain oxyCODONE-acetaminophen (PERCOCET) 5-325 mg tablet Indications: Chronic low back pain without sciatica, unspecified back pain laterality Take 1 tablet by mouth every 6 hours as needed for pain for up to 7 days. 28 tablet 0 02/23/2023 Active Start: 03-20-2022 Oxycodone-Acet aminophen Active 1 TABLET PO NEEDED March 20, 2022 12:00am Start: 03-18-2022 End: 02-23-2023 take 1 tablet by mouth every four hours as needed for pain oxyCODONE-acetaminophen (PERCOCET) 5-325 mg tablet Indications: Chronic low back pain without sciatica, unspecified back pain laterality Take 1 tablet by mouth every 4 hours as needed for pain for up to 7 days. 42 tablet 0 11/24/2022 02/23/2023 Discontinued Start: 01-16-2022 End: 03-14-2022 take 1 tablet by mouth every four hours as needed for pain oxyCODONE-acetaminophen (PERCOCET) 5-325 mg tablet Indications: Pain, dental Take 1 tablet by mouth every 4 hours as needed for pain for up to 7 days. 42 tablet 0 01/16/2022 03/14/2022 Discontinued Start: 08-12-2021 End: 12-25-2021 take 1 tablet by mouth every four hours as needed for pain oxyCODONE-acetaminophen (PERCOCET) 5-325 mg tablet Indications: Chronic low back pain without sciatica, unspecified back pain laterality Take 1 tablet by mouth every 4 hours as needed for pain for up to 7 days. 42 tablet 0 12/18/2021 Active Start: 05-15-2021 take 1 tablet by kandi every four hours as needed for pain oxyCODONE-acetaminophen (PERCOCET) 5-325 mg tablet Indications: Chronic low back pain without sciatica, unspecified back pain laterality Take 1 tablet by mouth every 4 hours as needed for pain for up to 7 days. 42 tablet 0 05/15/2021 Active Start: 11-24-2018 End: 12-16-2018 Oxycodone-Acetaminophen Disc ontinued 1 EACH PO DAILY November 23, 2018 11:00pm December 16, 2018 3:32pm Start: 07-06-2013 End: 05-09-2014 take 1 tablet by mouth twice daily Oxycodone-Acetaminophen (Percocet 10-325 Mg Tablet) 1 EACH tablet Discontinued 1 TABLET PO TWICE A DAY July 05, 2013 11:00pm May 09, 2014 2:03pm Comment on above: Take 1 tablet by kandi every 4 hours as needed for pain for up to 7 days. Take 1 tablet by kandi th every 6 hours as needed for pain for up to 7 days. Take 1 tablet by kandi every 6 hours as needed for pain for up to 7 days. Do not start before May 16, 2023. Take 1 tablet by kandi every 6 hours as needed for pain for up to 7 days. Do not start before July 07, 2023. amoxicillin 875 mg / clavulanate 125 mg oral tablet (3 sources) Penicillin-class Antibacterial Start: End: take 1 tablet by mouth twice daily amoxicillin-clavula donald potassium (AUGMENTIN) 875-125 mg per tablet Indications: Ulcer of toe of left foot, unspecified ulcer stage (HCC) Take 1 tablet by mouth two times a day for 10 days. 20 tablet 08/15/2024 08/25/2024 Active ascorbic acid 1000 mg oral tablet (20 sources) Vitamin C Start: 9 take 1 g by mouth once daily Ascorbic Acid (Vitamin C) Active 1 GM PO DAILY December 15, 2018 11:00pm Start: 12-16-2018 take 1 g by mouth twice daily Ascorbic Acid (Vitamin C) Active 1 GM PO TWICE A DAY December 16, 2018 12:00am Start: 09-11-2011 End: 09-23-2021 take 1 tablet by mouth once daily Ascorbic Acid (VITAMIN C) 1,000 mg tablet Take 1 tablet by mouth once daily. 0 09/11/2011 09/23/2021 Discontinued End: 06-10-2023 take 2000 [IU] by mouth once daily ascorbic acid (VITAMIN C ORAL) Take 2,000 Units by mouth once daily. 0 06/10/2023 Discontinued take 2000 [IU] by mo [facility] once daily ascorbic acid (VITAMIN C ORAL) Take 2,000 Units by mouth once daily. 0 Active Comment on above: Take 1 tablet by kandi once daily. Take 2,000 Units by mouth once daily. benoxinate hydrochloride 4 mg/ml / fluorescein sodium 3 mg/ml ophthalmic solution (4 sources) Diagnostic Dye Start: 08-11-2024 End: 08-11-2024 fluorescein-benoxi donald 0.3-0.4 % 1 drop (FLURESS) Start: 08-11-2024 End: 08-11-2024 1 drop, BOTH EYES, DIRECT ED, Starting on Rody 08/11/24 at 0930, Until Rody 08/11/24 at 2129, Administer for applanation tonometry. In the event of a Fluress shortage, administer 1 drop of Sidra-Fluor into both eyes as directed for applanation tonometry., OPHT CLINIC MED ORDERS Start: 12-09-2022 End: 12-09-2022 fluorescein-benoxinate 0.25- 0.4 % 1 Drop (FLURESS) Start: 12-10-2021 End: 12-10-2021 fluorescein-benoxinate 0.25- 0.4 % 1 Drop (FLURESS) Calcium (1 source) Phosphate Binder, Calcium Start: 03-20-2022 take 500 mg by mouth twice daily Calcium Active 500 MG PO TWICE A DAY March 20, 2022 12:00am calcium carbonate 1500 mg / cholecalciferol 800 unt chewable tablet (2 sources) Vitamin D Start: 01-12-2019 Ca-D3-Mag Fn-Gkcj-Otr-Man g-Bor Active 1 EACH PO DAILY January 11, 2019 11:00pm calcium, elemental, tab (20 sources) Start: 04-26-2013 take 1 tablet by mouth twice daily calcium, elemental, tab Take 600 mg by mouth twice daily. 04/26/2013 Active Start: 04-26-2013 take 1 tablet by kandi twice daily calcium, elemental, tab Take 600 mg by mouth twice daily. 0 04/26/2013 Active Start: 04-26-2013 take 1 tablet by kandi th once daily calcium, elemental, tab Take 600 mg by mouth once daily. 0 04/26/2013 Active Comment on above: Take 600 mg by mouth once daily. Take 600 mg by mouth twice daily. ciprofloxacin 2 mg/ml otic solution (2 sources) Quinolone Antimicrobial Start: 07-03-2021 End: 07-10-2021 ciprofloxacin HCl (CETRAXAL) 0.2 % dpet otic solution Use 0.25 mL in the right ear twice daily for 7 days. 4 mL 0 07/03/2021 07/10/2021 Active Comment on above: Use 0.25 mL in the r ight ear twice daily for 7 days. cloNIDine hydrochloride 0.1 mg oral tablet (20 sources) Central alpha-2 Adrenergic Agonist Start: 01-20-2024 End: 07-25-2024 cloNIDine HCl (CATAPRES) 0.1 mg tablet Indications: Primary hypertension Take 1-2 tablets by mouth three times a day as needed (for SBP greater than 150). 90 tablet 1 07/25/2024 Active Start: 01-11-2024 End: 01-20-2024 cloNIDine HCl (CATAPRES) 0.1 mg tablet Indications: Primary hypertension Take 1-2 tablets by mouth three times a day as needed (for SBP greater than 165). 90 tablet 1 01/11/2024 01/20/2024 Discontinued (Adjust Sig - Block E-Cancel) doxycycline hyclate 100 mg oral capsule (1 source) Tetracycline-class Drug Start: 01-10-2021 take 100 mg by mouth twice daily Doxycycline Hyclate Active 100 MG PO TWICE A DAY 23 01January 10, 2021 12:00am famotidine 40 mg oral tablet (20 sources) Histamine-2 Receptor Antagonist Start: 02-19-2021 End: 09-05-2024 take 1 tablet by mouth once daily as needed famotidine (PEPCID) 40 mg tablet Take 1 tablet by mouth once daily as needed. 90 tablet 1 09/05/2024 Active Start: 12-19-2019 End: 02-08-2020 take 2 tablets by mouth once daily ACID FIELD CONTRACTOR 20 mg tablet Take 2 tablets by mouth once daily. Famotidine. 12/19/2019 02/08/2020 Discontinued Comment on above: Take [address] [facility] once daily as needed. 14 actuat fluticasone furoate 0.1 mg/actuat / vilanterol 0.025 mg/actuat dry powder inhaler (8 sources) Corticosteroid, beta2-Adrenergic Agonist Start: 025 take 1 dose by inhalation once daily fluticasone-vilanter ol (BREO ELLIPTA) 100-25 mcg/dose inhaler Inhale 1 inhalation as instructed once daily. 1 each 5 10/20/2024 Active hydrocortisone 25 mg/ml topical cream (20 sources) Corticosteroid Start: 019 hydrocortisone 2.5 % cream Seldom 12/16/2018 Active Start: 12-16-2018 Hydrocortisone (Proctozone-Hc) 2.5 % cream with perineal applicator Active 1 APPLIC RC TWICE A DAY December 15, 2018 11:00pm Comment on above: Seldom iv contrast (will be provided with radiology test) (2 sources) Start: 5 End: 5 iv contrast (will be provided with radiology test) Indications: Shortness of breath CT Chest W -Inject, intravenously, once for 1 dose.No IV access, insert saline lock prior to the beginning of sedation, infusion, injection of imaging exam. Discontinue saline lock post exam. If Pt. has a central line or IVAD, may access for administration according to line specific nursing protocol. Once exam is complete flush line and de-access according to line specific nursing protocol in the CT contrast administration guidelines link. 1 each 08/08/2024 08/09/2024 Active lisinopril 20 mg oral tablet (20 sources) Angiotensin Converting Enzyme Inhibitor Start: 3 End: 4 take 2 tablets by mouth once daily lisinopril (ZESTRIL) 20 mg tablet Take 2 tablets by mouth once daily. Adjust dose as directed based on blood pressure readings 90 tablet 3 05/13/2023 Active Start: 05-11-2019 End: 05-02-2020 take 1 tablet by mouth once daily lisinopril (ZESTRIL, PRINIVIL) 20 mg tablet Take 1 tablet by mouth once daily. 90 tablet 3 05/11/2019 05/02/2020 Discontinued Start: 01-12-2019 take 20 mg by mouth once daily Lisinopril Active 20 MG PO DAILY January 12, 2019 12:00am Start: 07-06-2013 End: 11-11-2017 take 10 mg by mouth once daily Lisinopril Discontinued 10 MG PO DAILY July 05, 2013 11:00pm November 11, 2017 6:27pm Comment on above: Take 2 tablets by mo [facility] once daily. Adjust dose as directed based on blood pressure readings LORazepam 2 mg oral tablet (20 sources) Benzodiazepine Start: 3 End: 4 take 2 tablets by mouth at bedtime as needed LORazepam (ATIVAN) 1 mg tablet Indications: Insomnia, unspecified type Take 2 tablets by mouth at bedtime as needed for up to 120 days. For insomnia 120 tablet 1 03/10/2023 08/28/2023 Discontinued Start: 03-20-2022 take 2 mg by mouth a t bedtime as needed Lorazepam Active 2 MG PO AT BEDTIME NEEDED March 20, 2022 1:30pm Start: 03-25-2021 End: 03-08-2025 take 1 tablet by mouth at bedtime as needed LORazepam (ATIVAN) 2 mg tab Indications: Insomnia, unspecified type Take 1 tablet by mouth at bedtime as needed (insomnia) for up to 180 days. 90 tablet 1 09/09/2024 03/08/2025 Active Start: 01-05-2020 End: 04-07-2020 take 1 tablet by mouth at bedtime as needed LORazepam (ATIVAN) 2 mg tab Indications: Insomnia, unspecified type Take 1 tablet by mouth at bedtime as needed (insomnia) for up to 90 days. 90 tablet 01/05/2020 04/07/2020 Discontinued Start: 01-12-2019 End: 03-20-2022 take 1 mg by mouth at bedtime as needed Lorazepam Discontinued 1 MG PO AT BEDTIME NEEDED January 12, 2019 5:46pm March 20, 2022 1:30pm Comment on above: Take 1 tablet by kandi th at bedtime as needed (insomnia) for up to 180 days. Take 1 tablet by kandi th at bedtime as needed (insomnia) for up to 180 days. Do not start before September 21, 2021. Take 1 tablet by kandi th at bedtime as needed (insomnia) for up to 180 days. Do not start before March 20, 2022. Take 2 tablets by mo uth at bedtime as needed for up to 120 days. For insomnia metoprolol tartrate 50 mg oral tablet (1 source) beta-Adrenergic Mark Start: 9 take 50 mg by mouth once daily Metoprolol Tartrate Active 50 MG PO DAILY January 28, 2019 12:00am multivitamin (SOFYA MULTIVITAMIN) tablet (20 sources) Start: 2 take 1 tablet by mouth once daily multivitamin (SOFYA MULTIVITAMIN) tablet Take 1 tablet by mouth once daily. 0 09/11/2011 Active Comment on above: Take 1 tablet by kandi th once daily. Multivitamin preparation (2 sources) Start: take 2 tablets by mouth once daily Multivitamin Active 2 TABLET PO DAILY December 15, 2018 11:00pm Start: 12-16-2018 take 1 tablet by kandi th once daily Multivitamin Active 1 TABLET PO DAILY December 16, 2018 12:00am NIFEdipine 60 mg osmotic 24 hr extended release oral tablet (20 sources) Dihydropyridine Calcium Channel Mark Start: 10-25-2024 End: 10-26-2024 take 1 tablet by mouth once daily NIFEdipine ER (PROCARDIA XL) 60 mg 24 hr tablet Indications: Primary hypertension Take 1 tablet by mouth once daily. 90 tablet 1 10/26/2024 Active Start: 10-17-2024 End: 10-25-2024 NIFEdipine ER (PROCARDIA XL) 30 mg 24 hr tablet Indications: Primary hypertension Take 1.5 tablets daily 10/18/2024 10/25/2024 Discontinued (Adjust Sig - Block E-Cancel) Start: 02-01-2024 End: 07-25-2024 take 1 tablet by mouth once daily NIFEdipine ER (PROCARDIA XL) 30 mg 24 hr tablet Indications: Primary hypertension Take 1 tablet by mouth once daily. 90 tablet 2 02/15/2024 07/25/2024 Discontinued (Course of therapy completed) phenylephrine hydrochloride 25 mg/ml ophthalmic solution (4 sources) alpha-1 Adrenergic Agonist Start: 08-11-2024 End: 08-11-2024 PHENYLephrine 2.5 % 1 drop (AK-DILATE, STERLING-SYNEPHRINE) Start: 08-11-2024 End: 08-11-2024 1 drop, BOTH EYES, DIRECT ED, Starting on Thu08/11/24 at 0930, Until Thu08/11/24 at 2129, Administer for dilation PROTECT FROM LIGHT, OPHT CLINIC MED ORDERS Start: 12-09-2022 End: 12-09-2022 PHENYLephrine 2.5 % 1 Drop ( AK-DILATE, STERLING-SYNEPHRINE) Start: 12-10-2021 End: 12-10-2021 PHENYLephrine 2.5 % 1 Drop ( AK-DILATE, STERLING-SYNEPHRINE) potassium chloride 10 meq extended release oral tablet (20 sources) Start: 04-08-2022 End: 09-05-2024 take 1 tablet by mouth twice daily potassium chloride (KLOR-CON 10) 10 mEq tablet Take 1 tablet by mouth two times a day. 180 tablet 3 09/05/2024 Active Start: 01-10-2021 End: 04-08-2022 take 1 capsule by mouth twice daily potassium chloride SR (MICRO-K) 10 mEq CR capsule Indications: Essential hypertension Take 1 capsule by mouth twice daily. 180 capsule 1 04/04/2022 04/08/2022 Discontinued (Cost of medication) Start: 09-12-2019 End: 03-05-2020 take 1 capsule by mouth twice daily potassium chloride SR (MICRO-K) 10 mEq CR capsule Indications: Essential hypertension Take 1 capsule by mouth twice daily. 180 capsule 1 09/12/2019 03/05/2020 Discontinued Comment on above: Take 1 capsule by mo [facility] twice daily. Take 1 tablet by kandi th twice daily. proparacaine hydrochloride 5 mg/ml ophthalmic solution (2 sources) Local Anesthetic Start: 08-11-2024 End: 08-11-2024 proparacaine 0.5 % 1 drop (ALCAINE) Start: 12-09-2022 End: 12-09-2022 proparacaine 0.5 % 1 Drop (A LCAINE) rosuvastatin calcium 40 mg oral tablet (20 sources) HMG-CoA Reductase Inhibitor Start: 01-22-2023 End: 09-05-2024 take 1 tablet by mouth once daily rosuvastatin (CRESTOR) 40 mg tablet Take 1 tablet by mouth once daily. 90 tablet 3 09/05/2024 Active Start: 01-16-2023 End: 01-23-2023 take 2 tablets by mouth once daily rosuvastatin (CRESTOR) 20 mg tablet Indications: Mixed hyperlipidemia Take 2 tablets by mouth once daily. 0 01/16/2023 01/23/2023 Discontinued (Duplicate Entry) Start: 08-18-2022 take 1 tablet by kandi th once daily rosuvastatin (CRESTOR) 20 mg tablet Indications: Mixed hyperlipidemia Take 1 tablet by mouth once daily. 90 tablet 3 08/18/2022 Active Start: 02-13-2022 take 1 tablet by kandi th once daily rosuvastatin (CRESTOR) 20 mg tablet Indications: Mixed hyperlipidemia Take 1 tablet by mouth once daily. 90 tablet 3 02/13/2022 Active Start: 02-13-2022 take 1 tablet by kandi th once daily rosuvastatin (CRESTOR) 20 mg tablet Indications: Mixed hyperlipidemia Take 1 tablet by mouth once daily. 90 tablet 3 02/13/2022 Active Start: 02-13-2022 take 1 tablet by kandi th once daily rosuvastatin (CRESTOR) 20 mg tablet Indications: Mixed hyperlipidemia Take 1 tablet by mouth once daily. 90 tablet 3 02/13/2022 Active Start: 02-13-2022 take 1 tablet by kandi th once daily rosuvastatin (CRESTOR) 20 mg tablet Indications: Mixed hyperlipidemia Take 1 tablet by mouth once daily. 90 tablet 3 02/13/2022 Active Start: 02-13-2022 take 1 tablet by kandi th once daily rosuvastatin (CRESTOR) 20 mg tablet Indications: Mixed hyperlipidemia Take 1 tablet by mouth once daily. 90 tablet 3 02/13/2022 Active Start: 02-13-2022 take 1 tablet by kandi th once daily rosuvastatin (CRESTOR) 20 mg tablet Indications: Mixed hyperlipidemia Take 1 tablet by mouth once daily. 90 tablet 3 02/13/2022 Active Start: 02-13-2022 take 1 tablet by kandi th once daily rosuvastatin (CRESTOR) 20 mg tablet Indications: Mixed hyperlipidemia Take 1 tablet by mouth once daily. 90 tablet 3 02/13/2022 Active Start: 02-13-2022 take 1 tablet by kandi th once daily rosuvastatin (CRESTOR) 20 mg tablet Indications: Mixed hyperlipidemia Take 1 tablet by mouth once daily. 90 tablet 3 02/13/2022 Active Start: 02-13-2022 take 1 tablet by kandi th once daily rosuvastatin (CRESTOR) 20 mg tablet Indications: Mixed hyperlipidemia Take 1 tablet by mouth once daily. 90 tablet 3 02/13/2022 Active Start: 02-13-2022 take 1 tablet by kandi th once daily rosuvastatin (CRESTOR) 20 mg tablet Indications: Mixed hyperlipidemia Take 1 tablet by mouth once daily. 90 tablet 3 02/13/2022 Active Start: 02-13-2022 take 1 tablet by kandi th once daily rosuvastatin (CRESTOR) 20 mg tablet Indications: Mixed hyperlipidemia Take 1 tablet by mouth once daily. 90 tablet 3 02/13/2022 Active Start: 02-13-2022 take 1 tablet by kandi th once daily rosuvastatin (CRESTOR) 20 mg tablet Indications: Mixed hyperlipidemia Take 1 tablet by mouth once daily. 90 tablet 3 02/13/2022 Active Start: 02-13-2022 take 1 tablet by kandi th once daily rosuvastatin (CRESTOR) 20 mg tablet Indications: Mixed hyperlipidemia Take 1 tablet by mouth once daily. 90 tablet 3 02/13/2022 Active Start: 02-13-2022 take 1 tablet by kandi th once daily rosuvastatin (CRESTOR) 20 mg tablet Indications: Mixed hyperlipidemia Take 1 tablet by mouth once daily. 90 tablet 3 02/13/2022 Active Start: 02-13-2022 take 1 tablet by kandi th once daily rosuvastatin (CRESTOR) 20 mg tablet Indications: Mixed hyperlipidemia Take 1 tablet by mouth once daily. 90 tablet 3 02/13/2022 Active Start: 02-13-2022 take 1 tablet by kandi th once daily rosuvastatin (CRESTOR) 20 mg tablet Indications: Mixed hyperlipidemia Take 1 tablet by mouth once daily. 90 tablet 3 02/13/2022 Active Start: 02-13-2022 take 1 tablet by kandi th once daily rosuvastatin (CRESTOR) 20 mg tablet Indications: Mixed hyperlipidemia Take 1 tablet by mouth once daily. 90 tablet 3 02/13/2022 Active Start: 02-13-2022 take 1 tablet by kandi th once daily rosuvastatin (CRESTOR) 20 mg tablet Indications: Mixed hyperlipidemia Take 1 tablet by mouth once daily. 90 tablet 3 02/13/2022 Active Start: 02-13-2022 take 1 tablet by kandi th once daily rosuvastatin (CRESTOR) 20 mg tablet Indications: Mixed hyperlipidemia Take 1 tablet by mouth once daily. 90 tablet 3 02/13/2022 Active Start: 02-13-2022 take 1 tablet by kandi th once daily rosuvastatin (CRESTOR) 20 mg tablet Indications: Mixed hyperlipidemia Take 1 tablet by mouth once daily. 90 tablet 3 02/13/2022 Active Start: 02-13-2022 take 1 tablet by kandi th once daily rosuvastatin (CRESTOR) 20 mg tablet Indications: Mixed hyperlipidemia Take 1 tablet by mouth once daily. 90 tablet 3 02/13/2022 Active Start: 02-13-2022 take 1 tablet by kandi th once daily rosuvastatin (CRESTOR) 20 mg tablet Indications: Mixed hyperlipidemia Take 1 tablet by mouth once daily. 90 tablet 3 02/13/2022 Active Start: 02-13-2022 take 1 tablet by kandi th once daily rosuvastatin (CRESTOR) 20 mg tablet Indications: Mixed hyperlipidemia Take 1 tablet by mouth once daily. 90 tablet 3 02/13/2022 Active Start: 02-13-2022 take 1 tablet by kandi th once daily rosuvastatin (CRESTOR) 20 mg tablet Indications: Mixed hyperlipidemia Take 1 tablet by mouth once daily. 90 tablet 3 02/13/2022 Active Start: 02-13-2022 take 1 tablet by kandi th once daily rosuvastatin (CRESTOR) 20 mg tablet Indications: Mixed hyperlipidemia Take 1 tablet by mouth once daily. 90 tablet 3 02/13/2022 Active Start: 02-13-2021 End: 11-27-2021 take 1 tablet by mouth once daily rosuvastatin (CRESTOR) 20 mg tablet Indications: Mixed hyperlipidemia Take 1 tablet by mouth once daily. 90 tablet 3 02/13/2021 11/27/2021 Discontinued Start: 09-12-2019 End: 03-07-2020 take 1 tablet by mouth once daily rosuvastatin (CRESTOR) 20 mg tablet Indications: Mixed hyperlipidemia Take 1 tablet by mouth once daily. 90 tablet 1 09/12/2019 03/07/2020 Discontinued Start: 12-16-2018 take 2 tablets by mo [facility] at bedtime Rosuvastatin (Crestor) 10 mg tablet Active 20 MG PO AT BEDTIME December 16, 2018 3:22pm Start: 11-24-2018 End: 12-16-2018 take 10 mg by mouth once daily Rosuvastatin Discontinu ed 10 MG PO DAILY November 23, 2018 11:00pm December 16, 2018 3:32pm Comment on above: Take 1 tablet by kandi th once daily. Take 2 tablets by mo ut once daily. Saw [place] (4 sources) Start: 12-16-2018 take 450 mg by mouth twice daily Saw [place] Active 450 MG PO TWICE A DAY December 16, 2018 3:25pm Start: 12-16-2018 take 450 mg by mouth twice daily Saw [place] Active 450 MG PO TWICE A DAY December 16, 2018 4:25pm Start: 05-08-2014 End: 12-16-2018 take 450 mg by mouth twice daily Saw [place] Discontinued 450 MG PO TWICE A DAY May 08, 2014 12:00am December 16, 2018 3:32pm Start: 05-08-2014 End: 12-16-2018 take 450 mg by mouth twice daily Emanuel Urias Discontinued 450 MG PO TWICE A DAY May 08, 2014 1:00am December 16, 2018 4:32pm tropicamide 10 mg/ml ophthalmic solution (4 sources) Anticholinergic Start: 08-11-2024 End: 08-11-2024 tropicamide 1 % 1 drop (MYDRIACYL) Start: 08-11-2024 End: 08-11-2024 1 drop, BOTH EYES, DIRECT ED, Starting on Rody 08/11/24 at 0930, Until Rody 08/11/24 at 2129, Administer for dilation, OPHT CLINIC MED ORDERS Start: 12-09-2022 End: 12-09-2022 tropicamide 1 % 1 Drop (MYDR IACYL) Start: 12-10-2021 End: 12-10-2021 tropicamide 1 % 1 Drop (MYDR IACYL) ubidecarenone 200 mg oral ca psule (20 sources) Start: 12-16-2018 Coenzyme Q10 A ctive 400 MG PO DAILY December 15, 2018 11:00pm Start: 12-16-2018 Coenzyme Q10 A ctive 200 MG PO TWICE A DAY December 16, 2018 12:00am Start: 05-08-2014 End: 12-16-2018 Coenzyme Q10 Discontinued 50 MG PO TWICE A DAY May 08, 2014 12:00am December 16, 2018 3:26pm coenzyme Q10 (CO ENZYME Q-10) 100 mg cap capsule Take 400 mg by mouth once daily. Active Comment on above: Take 400 mg by mouth once daily. verapamil hydrochloride 180 mg extended release oral tablet (1 source) Calcium Channel Mark Start: 01-10-2021 take 180 mg by mouth once daily Verapamil Active 180 MG PO DAILY January 10, 2021 12:00am Vitamin B Complex (20 sources) Start: 03-20-2022 take 1 tablet by mouth twice daily Vitamin B Complex Active 1 TABLET PO TWICE A DAY March 20, 2022 12:00am Start: 05-08-2014 take 1 tablet by kandi once daily vitamin B complex (B COMPLEX 1 ORAL) Take 1 tablet by mouth once daily. 05/08/2014 Active Start: 05-08-2014 take 1 tablet by kandi th once daily vitamin B complex (B COMPLEX 1 ORAL) Take 1 tablet by mouth once daily. 0 05/08/2014 Active Start: 05-08-2014 vitamin B comp carola (B COMPLEX 1 ORAL) Start: 05-08-2014 vitamin B comp [place] (B COMPLEX 1 ORAL) B Complex With Vitamin C Active 1 EA DAILY May 08, 2014 12:26pm 0 05/08/2014 Active Comment on above: B Complex With Vitam in C Active 1 EA DAILY May 08, 2014 12:26pm warfarin sodium 5 mg oral tablet (20 sources) Vitamin K Antagonist Start: 02-16-2024 End: 09-05-2024 warfarin (COUMADIN) 5 mg tablet Indications: 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) As directed, currently taking as alternating every other day with taking 7.5 mg and 5 mg, plan for max dose of 10 mg per day at this time. 180 tablet 3 09/05/2024 Active Start: 02-15-2024 End: 02-16-2024 warfarin (COUMADIN) 5 mg tab let Indications: 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) As directed 240 tablet 1 02/15/2024 02/16/2024 Discontinued Start: 11-10-2022 End: 02-15-2024 warfarin (COUMADIN) 5 mg tab let Indications: 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) Take 1.5 tablets on Sundays and 2 tablets Thursday through Saturdays 240 tablet 1 01/30/2023 02/15/2024 Discontinued Start: 11-06-2022 End: 11-10-2022 warfarin (COUMADIN) 5 mg tab let Indications: 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) Take 2 tabs daily Mondays thru Fridays. Take 1&1/2 tablets Saturdays and Sundays. 240 tablet 1 11/06/2022 11/10/2022 Discontinued Start: 08-25-2022 End: 11-04-2022 warfarin (COUMADIN) 5 mg tab let Indications: 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) Take 2 tabs daily Mondays thru Fridays. Take 1&1/2 tablets Saturdays and Sundays. 240 tablet 1 11/06/2022 Active Start: 04-01-2021 End: 11-24-2021 warfarin (COUMADIN) 5 mg tab let Indications: 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) Take 2 tabs daily Mondays thru Fridays. Take 1&1/2 tablets Saturdays and Sundays. 240 tablet 1 11/25/2021 Active Start: 01-10-2021 take 10 mg by mouth once daily Warfarin Active 10 MG PO DAILY January 09, 2021 11:00pm Start: 01-04-2020 End: 03-30-2021 warfarin (COUMADIN) 5 mg tab let Take 2 tabs daily 240 tablet 1 01/04/2020 03/30/2021 Discontinued Start: 01-10-2018 Warfarin Activ e 7.5 MG PO SUSA January 10, 2018 12:00am Start: 10-15-2017 End: 11-11-2017 take 2 tablets by mouth once daily Warfarin Discontinued 12.5 MG PO MOWEFR October 15, 2017 8:18am November 11, 2017 6:30pm take 2 tabs daily at suppertime Start: 10-15-2017 End: 11-11-2017 take 15 g by mouth once Coumadin Discontinued 15 GM PO every Thursday, Tues, Thurs, Sat October 14, 2017 11:00pm November 11, 2017 6:29pm Start: 10-15-2017 End: 11-11-2017 take 15 g by mouth once Coumadin Discontinued 15 GM PO every Thursday, Tues, Thurs, Sat October 15, 2017 12:00am November 11, 2017 7:29pm Start: 05-09-2014 End: 10-15-2017 take 2 tablets by mouth once daily Warfarin (Coumadin) 5 MG tablet Discontinued 10 MG PO DAILY 60 May 09, 2014 12:00am October 15, 2017 8:18am take 2 tabs daily at suppertime Comment on above: Take 2 tabs daily Take 2 tabs daily thru Fridays. Take 1&1/2 tablets Saturdays and Sundays. Take 1.5 tablets on Sundays and 2 tablets Thursday through Saturdays Completed/Discontinued Medications Medication Drug Class(es) Dates Sig (Normalized) Sig (Original) ascorbic acid-elderberry fruit 100-50 mg chew (2 sources) Start: 05-01-2011 End: 12-11-2021 ascorbic acid-elderberry fruit 100-50 mg chew Take by mouth. 0 05/01/2011 12/11/2021 Discontinued (Discontinued by Patient) Start: 05-01-2011 ascorbic acid- elderberry fruit 100-50 mg chew Take by mouth. 0 05/01/2011 Active Comment on above: Take by mouth. aspirin 81 mg oral tablet (20 sources) Platelet Aggregation Inhibitor, Nonsteroidal Anti-inflammatory Drug Start: 01-10-2021 End: 06-10-2023 aspirin 81 mg cap Take by mouth. 0 01/10/2021 06/10/2023 Discontinued Start: 03-10-2019 End: 12-10-2021 take 1 tablet by mouth once daily aspirin, enteric coated (ASPIRIN LOW DOSE) 81 mg EC tablet Take 1 tablet by mouth once daily. 03/10/2019 12/10/2021 Discontinued Comment on above: Take 1 tablet by kandi once daily. Take by mouth. B Complex Vitamins (SUPER B-50 COMPLEX) capsule (20 sources) Start: 09-11-2011 End: 12-10-2021 take 1 capsule by mouth once daily B Complex Vitamins (SUPER B-50 COMPLEX) capsule Take 1 capsule by mouth once daily. 0 09/11/2011 12/10/2021 Discontinued Start: 09-11-2011 take 1 capsule by mo [facility] once daily B Complex Vitamins (SUPER B-50 COMPLEX) capsule Take 1 capsule by mouth once daily. 0 09/11/2011 Active Comment on above: Take 1 capsule by mo ut once daily. Back Brace (BACK SUPPORT S/M) misc (20 sources) Start: 06-03-2023 End: 02-15-2024 Back Brace (BACK SUPPORT S/M) misc Use as instructed. 1 Each 06/03/2023 02/15/2024 Discontinued Start: 06-03-2023 Back Brace (BA CK SUPPORT S/M) misc Use as instructed. 1 Each 06/03/2023 Active Start: 06-03-2023 Back Brace (BA CK SUPPORT S/M) misc Use as instructed. 1 Each 0 06/03/2023 Active Comment on above: Use as instructed. baclofen 2% diclofenac 3% lidocaine 5% topical (CPD) (16 sources) Start: 06-29-2023 End: 07-27-2023 baclofen 2% diclofenac 3% lidocaine 5% topical (CPD) Indications: Acute bilateral low back pain with bilateral sciatica , Compression fracture of L1 vertebra with routine healing, subsequent encounter , Chronic low back pain without sciatica, unspecified back pain laterality Apply 2 Pump to affected area four times daily. 2 Each 2 06/29/2023 07/27/2023 Discontinued Start: 06-29-2023 baclofen 2% di clofenac 3% lidocaine 5% topical (CPD) Indications: Acute bilateral low back pain with bilateral sciatica , Compression fracture of L1 vertebra with routine healing, subsequent encounter , Chronic low back pain without sciatica, unspecified back pain laterality Apply 2 Pump to affected area four times daily. 2 Each 2 06/29/2023 Active Comment on above: Apply 2 Pump to affe cted area four times daily. calcium carbonate 1250 mg oral tablet (4 sources) Start: 01-10-2018 End: 12-22-2018 take 1000 mg by mouth once daily Calcium Carbonate Discontinued 1000 MG PO DAILY January 09, 2018 11:00pm December 22, 2018 11:50am Start: 05-08-2014 End: 11-11-2017 take 500 mg by mouth once daily Calcium Carbonate Discontinued 500 MG PO DAILY@0800 May 08, 2014 12:00am November 11, 2017 6:30pm cholecalciferol 0.075 mg oral tablet (20 sources) Vitamin D End: 07-19-2023 Cholecalciferol, Vitamin D3, 75 mcg (3,000 unit) tab Take by mouth. 0 07/19/2023 Discontinued Comment on above: Take by mouth. cholecalciferol 1000 unt / vitamin k2 0.09 mg disintegrating oral tablet (17 sources) Vitamin D Start: 05-01-2011 End: 01-22-2022 Vitamin D3-Menaquinone 7 1000-90 unit-mcg ODT Take by mouth. 0 05/01/2011 01/22/2022 Discontinued Comment on above: Take by mouth. cholecalciferol, vitamin D3, (VITAMIN D3 ORAL) (20 sources) End: 12-10-2021 take 3000 [IU] by mouth once daily cholecalciferol, vitamin D3, (VITAMIN D3 ORAL) Take 3,000 Units by mouth once daily. 12/10/2021 Discontinued End: 12-10-2021 take 3000 [IU] by mouth once daily cholecalciferol, vitamin D3, (VITAMIN D3 ORAL) Take 3,000 Units by mouth once daily. 0 12/10/2021 Discontinued take 3000 [IU] by co ut once daily cholecalciferol, vitamin D3, (VITAMIN D3 ORAL) Take 3,000 Units by mouth once daily. 0 Active Comment on above: Take 3,000 Units by mouth once daily. cinnamon bark 500 mg oral capsule (2 sources) Start: 019 End: 019 take 500 mg by mouth once daily Cinnamon Bark Discontinued 500 MG PO DAILY December 15, 2018 11:00pm December 22, 2018 11:50am cyclobenzaprine hydrochloride 10 mg oral tablet (1 source) Muscle Relaxant Start: take 1 tablet by mouth three times daily as needed for muscle spasms and pain cyclobenzaprine (FLEXERIL) 10 mg tablet Indications: Chronic low back pain without sciatica, unspecified back pain laterality Take 1 tablet by mouth three times daily as needed for muscle spasm (and back pain.). 30 tablet 1 08/11/2022 Active Comment on above: Take 1 tablet by kandi three times daily as needed for muscle spasm (and back pain.). DULoxetine 30 mg delayed release oral capsule (20 sources) Serotonin and Norepinephrine Reuptake Inhibitor Start: End: 024 take 1 capsule by mouth once daily in the morning DULoxetine (CYMBALTA) 30 mg capsule Indications: Compression fracture of L1 vertebra with routine healing, subsequent encounter , Chronic bilateral low back pain with bilateral sciatica Take 1 capsule by mouth once daily. In the morning. 01/20/2024 02/01/2024 Discontinued Start: 09-15-2023 End: 01-20-2024 take 1 capsule by mouth once daily in the morning DULoxetine (CYMBALTA) 60 mg capsule Indications: Compression fracture of L1 vertebra with routine healing, subsequent encounter , Chronic bilateral low back pain with bilateral sciatica Take 1 capsule by mouth once daily. In the morning. 30 capsule 2 01/20/2024 01/20/2024 Discontinued (Adjust Sig - Block E-Cancel) Start: 09-15-2023 End: 01-06-2024 take 1 capsule by mouth once daily in the evening DULoxetine (CYMBALTA) 30 mg capsule Indications: Compression fracture of L1 vertebra with routine healing, subsequent encounter , Chronic bilateral low back pain with bilateral sciatica Take 1 capsule by mouth once daily. In the evening, this is in addition to the 60 mg am dose 30 capsule 2 12/28/2023 01/06/2024 Discontinued Start: 09-04-2023 End: 09-15-2023 take 1 capsule by mouth twice daily DULoxetine (CYMBALTA) 40 mg cpDR Indications: Acute bilateral low back pain with bilateral sciatica , Compression fracture of L1 vertebra with routine healing, subsequent encounter , Chronic low back pain without sciatica, unspecified back pain laterality Take 1 capsule by mouth two times a day. 60 capsule 3 09/04/2023 09/15/2023 Discontinued Start: 07-27-2023 End: 09-04-2023 take 1 capsule by mouth once daily DULoxetine (CYMBALTA) 60 mg capsule Indications: Acute bilateral low back pain with bilateral sciatica , Compression fracture of L1 vertebra with routine healing, subsequent encounter , Chronic low back pain without sciatica, unspecified back pain laterality Take 1 capsule by mouth once daily. 30 capsule 4 07/27/2023 09/04/2023 Discontinued Start: 06-29-2023 End: 07-27-2023 take 1 capsule by mouth once daily DULoxetine (CYMBALTA) 30 mg capsule Indications: Acute bilateral low back pain with bilateral sciatica , Compression fracture of L1 vertebra with routine healing, subsequent encounter , Chronic low back pain without sciatica, unspecified back pain laterality Take 1 capsule by mouth once daily. 30 capsule 3 06/29/2023 07/24/2023 Discontinued Comment on above: Take 1 capsule by mo uth once daily. take 1 capsule by mo uth once daily flurazepam hydrochloride 30 mg oral capsule (2 sources) Benzodiazepine Start: 12-17-19 End: 12-23-19 take 30 mg by mouth at bedtime Flurazepam Discontinued 30 MG PO AT BEDTIME December 15, 2018 11:00pm December 22, 2018 11:50am fluticasone propionate 0.05 mg/actuat metered dose nasal spray (15 sources) Corticosteroid Start: 05-09-19 End: 08-23-19 take 2 spray(s) by mouth once daily fluticasone (FLONASE) 50 mcg/actuation nasal spray Indications: Seasonal allergic rhinitis, unspecified trigger Use 2 Sprays in each nostril once daily. Rinse mouth after use. 1 Bottle 11 05/09/2019 08/22/2021 Discontinued Start: 12-16-2018 Fluticasone Pr opionate (Allergy Relief (Fluticasone)) 50 mcg/actuation spray,suspension Active 1 SPRAY INTRANASAL DAILY December 15, 2018 11:00pm Comment on above: Use 2 Sprays in each nostril once daily. Rinse mouth after use. fluticasone / salmeterol (20 sources) Corticosteroid, beta2-Adrenergic Agonist Start: End: take 1 puff(s) by inhalation twice daily fluticasone-salmetero l (ADVAIR, WIXELA) 250-50 mcg/dose inhaler Indications: Shortness of breath Inhale 1 Puff as instructed two times a day. 60 Each 2 06/08/2024 07/25/2024 Discontinued Start: 06-08-2024 take 1 puff(s) by in halation twice daily fluticasone-salmeterol (ADVAIR, WIXELA) 250-50 mcg/dose inhaler Indications: Shortness of breath Inhale 1 Puff as instructed two times a day. 60 Each 2 06/08/2024 Active glycerin 2 mg/ml / hypromellose 2 mg/ml / polyethylene glycol 400 10 mg/ml ophthalmic solution (2 sources) Non-Standardized Chemical Allergen Start: 05-08-2014 End: 12-16-2018 Peg [id number] Discontinued 2 DRP OP 4 TIMES DAILY NEEDED May 08, 2014 12:00am December 16, 2018 3:32pm hydroCHLOROthiazide 12.5 mg / lisinopril 20 mg oral tablet (20 sources) Thiazide Diuretic, Angiotensin Converting Enzyme Inhibitor Start: 04-16-2022 End: 01-29-2023 take 2 tablets by mouth once daily lisinopril-hydroCHLOROthia zide (ZESTORETIC) 20-12.5 mg per tablet Indications: Primary hypertension Take 2 tablets by mouth once daily. 180 tablet 1 01/30/2023 Active Start: 05-16-2021 End: 04-11-2022 take 1 tablet by mouth once daily lisinopril-hydroCHLOROthiazide (PRINZIDE,ZESTORETIC) 20-12.5 mg per tablet Indications: Primary hypertension Take 1 tablet by mouth once daily. 90 tablet 3 02/03/2022 04/11/2022 Discontinued Start: 02-23-2019 End: 05-02-2020 take 1 tablet by mouth once daily at bedtime for hypertension lisinopril-hydrochlorothiazide (PRINZIDE,ZESTORETIC) 20-12.5 mg per tablet Indications: Essential hypertension Take 1 tablet by mouth daily at bedtime. For high blood pressure 02/23/2019 05/02/2020 Discontinued Start: 11-11-2017 take 1 tablet by kandi th twice daily Lisinopril-Hydrochlorothiazide Active 1 TABLET PO TWICE A DAY November 10, 2017 11:00pm Start: 11-11-2017 take 1 tablet by kandi th once daily Lisinopril-Hydrochlorothiazide Active 1 TABLET PO daily November 11, 2017 12:00am Comment on above: Take 0.5 tablets by mouth once daily. Patient is taking 1/2 tablet once daily. Take 1 tablet by kandi th once daily. Take 2 tablets by mo ut once daily. hydrOXYzine hydrochloride 25 mg oral tablet (1 source) Antihistamine Start: 08-09-19 End: 07-18-19 take 1 tablet by mouth every six hours hydrOXYzine HCl (ATARAX) 25 mg tablet Indications: Rash take 1 tablet by mouth every 6 hours if needed for rash or itching 28 tablet 2 08/09/2019 07/17/2020 Discontinued ketotifen 0.25 mg/ml ophthalmic solution (2 sources) Histamine-1 Receptor Inhibitor Start: 11-25-19 19 End: 12-17-19 19 Ketotifen Fumarate Discontinued 10 ML OP NEEDED November 23, 2018 11:00pm December 16, 2018 3:32pm Magnesium (2 sources) Start: 05-08-19 15 End: 11-12-19 18 take 1 tablet by mouth twice daily Magnesium Discontinued 1 TABLET PO TWICE A DAY May 08, 2014 12:00am November 11, 2017 6:30pm Start: 05-08-2014 End: 11-11-2017 take 1 tablet by mouth twice daily Magnesium Discontinued 1 TABLET PO TWICE A DAY May 08, 2014 1:00am November 11, 2017 7:30pm magnesium oxide 400 mg oral capsule (20 sources) Start: 12-16-2018 End: 07-25-2024 take 1 capsule by mouth once daily magnesium oxide 400 mg magnesium cap Take 1 capsule by mouth once daily. 02/06/2020 07/25/2024 Discontinued (Course of therapy completed) Start: 12-16-2018 End: 02-06-2020 take 1 capsule by mouth twice daily magnesium oxide 400 mg magnesium cap Take 1 capsule by mouth twice daily. 06/06/2019 02/06/2020 Discontinued Comment on above: Take 1 capsule by [facility] once daily. melatonin 10 mg oral tablet (1 source) Start: 0 End: 0 take 1 tablet by mouth once daily at bedtime melatonin 10 mg tab Indications: Insomnia, unspecified type Take 1 tablet by mouth daily at bedtime. 01/05/2020 02/06/2020 Discontinued (Course of therapy completed) Multivitamin capsule (1 source) Start: 2 End: 2 Multivitamin capsule TAKE BY MOUTH EVERY DAY 0 05/01/2011 12/10/2021 Discontinued Comment on above: TAKE BY MOUTH EVERY DAY Multivitamins,Ther W-Minerals (2 sources) Start: 5 End: 9 take 1 tablet by mouth once daily Multivitamins,Ther W-Minerals Discontinued 1 TABLET PO DAILY May 08, 2014 12:00am December 16, 2018 3:28pm Start: 05-08-2014 End: 12-16-2018 take 1 tablet by mouth once daily Multivitamins,Ther W-Minerals Discontinued 1 TABLET PO DAILY May 08, 2014 1:00am December 16, 2018 4:28pm olmesartan medoxomil 40 mg oral tablet (20 sources) Angiotensin 2 Receptor Mark Start: 01-20-2024 End: 03-04-2025 take 1 tablet by mouth once daily olmesartan (BENICAR) 40 mg tablet Indications: Primary hypertension Take 1 tablet by mouth once daily. 90 tablet 1 09/05/2024 10/17/2024 Discontinued olopatadine 2 mg/ml ophthalmic solution (20 sources) Histamine-1 Receptor Inhibitor End: 07-25-2024 take 1 drop(s) into the eye(s) once daily Olopatadine (PATADAY ONCE DAILY RELIEF) 0.2 % drop Use 1 Drop in both eyes once daily. 07/25/2024 Discontinued (Course of therapy completed) omeprazole 40 mg delayed release oral capsule (2 sources) Proton Pump Inhibitor Start: 05-08-2014 End: 11-18-2017 take 40 mg by mouth once daily Omeprazole Discontinued 40 MG PO DAILY May 08, 2014 12:00am November 18, 2017 8:45am pantoprazole 40 mg delayed release oral tablet (20 sources) Proton Pump Inhibitor Start: 02-02-2023 End: 11-15-2024 take 1 tablet by mouth once daily at mealtime pantoprazole DR (PROTONIX) 40 mg tablet Indications: Acute gastritis without hemorrhage, unspecified gastritis type take 1 tablet by mouth once daily ON AN EMPTY STOMACH 30 MINUTES PRIOR TO A MEAL 90 tablet 1 07/27/2023 11/15/2024 Discontinued Start: 01-21-2023 take 1 tablet by kandi th once daily at mealtime pantoprazole DR (PROTONIX) 40 mg tablet Indications: Acute gastritis without hemorrhage, unspecified gastritis type take 1 tablet by mouth once daily ON AN EMPTY STOMACH 30 MINUTES PRIOR TO A MEAL 14 tablet 0 01/21/2023 Active Start: 01-13-2023 take 1 tablet by kandi th once daily before breakfast pantoprazole DR (PROTONIX) 40 mg tablet Indications: Acute gastritis without hemorrhage, unspecified gastritis type Take 1 tablet by mouth daily before breakfast. Take on empty stomach, 1/2 hr before meal. 14 tablet 0 01/13/2023 Active Comment on above: Take 1 tablet by kandi th daily before breakfast. Take on empty stomach, 1/2 hr before meal. take 1 tablet by kandi th once daily ON AN EMPTY STOMACH 30 MINUTES PRIOR TO A MEAL polyethylene glycol 3350 [id number] mg powder for oral solution (20 sources) Osmotic Laxative End: 06-10-2023 polyethylene glycol 3350 17 gram/dose powder Take 1 Cap-Full by mouth once daily as needed for constipation. Dissolve dose in 4 - 8 ounces of liquid and take as directed. 0 06/10/2023 Discontinued Comment on above: Take 1 Cap-Full by out once daily as needed for constipation. Dissolve dose in 4 - 8 ounces of liquid and take as directed. polyethylene glycol 3350 262836 mg / potassium chloride 2970 mg / sodium bicarbonate 6740 mg / sodium chloride 5860 mg / sodium sulfate 21846 mg powder for oral solution (1 source) Osmotic Laxative Start: 11-12-2021 End: 11-12-2021 peg 3350-Electrolytes (GOLYTELY) 236-22.74-6.74 -5.86 gram suspension Indications: Personal history of colonic polyps Take 4,000 mL by mouth one time only for 1 dose. Refer to printed prep instructions from your provider. 4000 mL 0 11/12/2021 11/12/2021 Discontinued Comment on above: Take 4,000 mL by kandi th one time only for 1 dose. Refer to printed prep instructions from your provider. raNITIdine 300 mg oral tablet (2 sources) Histamine-2 Receptor Antagonist Start: 12-16-2018 End: 12-10-2021 raNITIdine HCl (ZANTAC) 300 mg tablet 300 mg. 0 12/16/2018 12/10/2021 Discontinued Comment on above: 300 mg. regadenoson 0.4 mg injection (LEXISCAN) (2 sources) Start: 07-18-2024 End: 07-18-2024 regadenoson 0.4 mg injection (LEXISCAN) Start: 07-18-2024 End: 07-18-2024 0.4 mg, INTRAVENOUS, DIRE CTED NEEDED, 1 dose, Starting on Thu07/18/24 at 1035, Until Thu07/18/24 at 0845, Per-Protocol - for use during STRESS TEST procedure only, Give 0.4 mg (5 mL) over ~10 seconds, followed immediately by a 5 mL saline flush. Wait 10-20 seconds, then administer the radionuclide myocardial perfusion imaging agent., Cardiac Procedure Med Orders SAW PALMETTO ORAL (20 sources) End: 07-25-2024 take 400 mg by mouth twice daily SAW PALMETTO ORAL Take 400 mg by mouth twice daily. 07/25/2024 Discontinued (Course of therapy completed) take 400 mg by mouth twice daily SAW PALMETTO ORAL Take 400 mg by mouth twice daily. Active take 400 mg by mouth twice daily SAW PALMETTO ORAL Take 400 mg by mouth twice daily. 0 Active Comment on above: Take 400 mg by mouth twice daily. simvastatin 10 mg oral tablet (2 sources) HMG-CoA Reductase Inhibitor Start: 4 End: 8 take 10 mg by mouth at bedtime Simvastatin Discontinued 10 MG PO AT BEDTIME July 05, 2013 11:00pm November 18, 2017 8:43am tamsulosin hydrochloride 0.4 mg oral capsule (11 sources) alpha-Adrenergic Mark Start: 4 End: 4 take 1 capsule by mouth once daily at bedtime tamsulosin (FLOMAX) 0.4 mg Indications: Benign prostatic hyperplasia with nocturia Take 1 capsule by mouth daily at bedtime. 90 capsule 08/10/2023 08/28/2023 Discontinued tiZANidine 4 mg oral tablet (20 sources) Central alpha-2 Adrenergic Agonist Start: End: 4 take 4-8 mg by mouth every six hours as needed tiZANidine (ZANAFLEX) 4 mg tablet Take 1-2 tablets by mouth every 6 hours as needed. 120 tablet 1 08/14/2023 02/15/2024 Discontinued Start: 05-18-2023 End: 08-12-2023 take 4-8 mg by mouth every six hours as needed tiZANidine (ZANAFLEX) 4 mg tablet Take 1-2 tablets by mouth every 6 hours as needed. 120 tablet 1 06/29/2023 08/12/2023 Discontinued Comment on above: Take 1 tablet by kandi th every 6 hours as needed. take 1 tablet by kandi th every 6 hours if needed Take 1-2 tablets by mouth every 6 hours as needed. vitamin b12 2.5 mg sublingual tablet (20 sources) Vitamin B12 Start: 05-08-2014 End: 12-16-2018 Cyanocobalamin (Vitamin B-12) Discontinued 5000 MCG SL DAILY May 08, 2014 12:00am December 16, 2018 3:32pm Start: 04-26-2013 Cyanocobalamin 2,500 mcg subl Dissolve under the tongue twice daily. 0 04/26/2013 Active Comment on above: Dissolve under the t ongue twice daily. zolpidem tartrate 10 mg oral tablet (2 sources) gamma-Aminobutyric Acid-ergic Agonist Start: 11-24-2018 End: 12-16-2018 take 10 mg by mouth at bedtime Zolpidem Discontinued 10 MG PO AT BEDTIME November 23, 2018 11:00pm December 16, 2018 3:32pm Problems Active Problems Problem Classification Problem Date Documented Date Episodic/Chronic Acquired foot deformities (1 source) Hammer toe; Translations: [Other hammer toe(s) (acquired), unspecified foot] 05-19-2024 Chronic Asthma (3 sources) Asthma; Translations: [Uncomplicated mild persistent asthma] Onset: 10-20-2024 10-20-2024 Chronic Blindness and vision defects (1 source) Abnormal vision; Translations: [Unspecified visual disturbance] 06-08-2024 Episodic Cataract (20 sources) Age-related nuclear cataract of right eye; Translations: [Age-related nuclear cataract, right eye] Onset: 07-05-2013 Resolved: 04-20-2017 06-19-2020 Chronic Chronic ulcer of skin (3 sources) Non-pressure chronic ulcer of other part of left foot with unspecified severity; Translations: [Ulcer of other part of foot] Onset: 08-15-2024 08-15-2024 Chronic Diabetes mellitus without complication (20 sources) Impaired fasting glycemia; Translations: [Impaired fasting glucose] Onset: 10-11-2008 06-02-2022 Episodic Disorders of lipid metabolism (20 sources) Mixed hyperlipidemia; Translations: [Mixed hyperlipidemia] Onset: 10-05-2008 06-11-2019 Chronic E Codes: Fall (6 sources) Fall; Translations: [Unspecified fall, initial encounter] Episodic Esophageal disorders (20 sources) Gastroesophageal reflux disease; Translations: [Gastro-esophageal reflux disease without esophagitis] Onset: 11-10-2008 Resolved: 10-11-2014 02-17-2014 Chronic Essential hypertension (20 sources) Hypertensive disorder; Translations: [Essential (primary) hypertension] Onset: 07-02-2009 10-26-2019 Chronic Genitourinary symptoms and ill-defined conditions (2 sources) Disorder of urinary tract; Translations: [Other difficulties with micturition] 07-27-2023 Episodic Hyperplasia of prostate (20 sources) Benign prostatic hypertrophy with outflow obstruction; Translations: [Benign prostatic hyperplasia with lower urinary tract symptoms] Onset: 09-04-2008 05-05-2016 Chronic Nutritional deficiencies (4 sources) Vitamin D deficiency; Translations: [Vitamin D deficiency, unspecified] Onset: 08-10-2024 02-10-2023 Chronic Occlusion or stenosis of precerebral arteries (20 sources) Left carotid artery stenosis; Translations: [Occlusion and stenosis of left carotid artery] Onset: 06-10-2019 Resolved: 06-11-2019 Chronic Open wounds of extremities (2 sources) Laceration of nail bed of toe; Translations: [Laceration without foreign body of unspecified toe(s) with damage to nail, initial encounter] Episodic Other aftercare (20 sources) Long-term current use of anticoagulant; 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] Onset: 09-15-2018 Episodic Other and unspecified benign neoplasm (1 source) History of polyp of colon; Translations: [Personal history of colonic polyps] Episodic Other and unspecified benign neoplasm (1 source) History of adenomatous polyp of colon; Translations: [Personal history of colonic polyps] Episodic Other and unspecified benign neoplasm (1 source) Personal history of colonic polyps; Translations: [Personal history of colonic polyps] Episodic Other connective tissue disease (1 source) Pain of toe of left foot; Translations: [Pain in left toe(s)] 05-19-2024 Episodic Other connective tissue disease (1 source) Pain of toe of right foot; Translations: [Pain in right toe(s)] 05-19-2024 Episodic Other eye disorders (20 sources) Posterior vitreous detachment of right eye; Translations: [Vitreous degeneration, right eye] Onset: 06-19-2020 06-19-2020 Chronic Other eye disorders (1 source) Vitreous degeneration, right eye; Translations: [Posterior vitreous detachment of right eye] Onset: 06-19-2020 Chronic Other fractures (20 sources) Compression fracture of lumbar spine; Translations: [Wedge compression fracture of first lumbar vertebra, subsequent encounter for fracture with routine healing] Onset: 07-15-2023 05-29-2023 Episodic Other hereditary and degenerative nervous system conditions (2 sources) Impaired cognition; Translations: [Mild cognitive impairment, so stated] 08-08-2024 Chronic Other hereditary and degenerative nervous system conditions (1 source) Mild cognitive impairment, so stated; Translations: [MCI (mild cognitive impairment)] Onset: 08-15-2024 Chronic Other injuries and conditions due to external causes (1 source) Closed injury of head; Translations: [Unspecified injury of head, subsequent encounter] Episodic Other lower respiratory disease (20 sources) Dyspnea; Translations: [Dyspnea, unspecified] 08-25-2023 Episodic Other lower respiratory disease (2 sources) Shortness of breath; Translations: [SOB (shortness of breath)] Onset: 08-04-2024 Episodic Other nervous system disorders (20 sources) Disorder of the peripheral nervous system; Translations: [Hereditary and idiopathic neuropathy, unspecified] Onset: 10-05-2008 11-03-2016 Chronic Other nervous system disorders (3 sources) Other chronic pain; Translations: [Chronic low back pain without sciatica, unspecified back pain laterality] Onset: 01-01-2022 Chronic Other nervous system disorders (1 source) Impaired cognition 08-08-2024 Episodic Other screening for suspected conditions (not mental disorders or infectious disease) (20 sources) Patient encounter status; Translations: [Encounter for screening for malignant neoplasm of prostate] Onset: 10-05-2008 Resolved: 10-21-2017 Episodic Other upper respiratory disease (20 sources) Chronic rhinitis; Translations: [Chronic rhinitis] Onset: 10-04-2015 Resolved: 04-20-2017 04-20-2017 Chronic Otitis media and related conditions (2 sources) Suppurative otitis media of right ear; Translations: [Suppurative otitis media, unspecified, right ear] Episodic Peripheral and visceral atherosclerosis (20 sources) Peripheral vascular disease, unspecified; Translations: [Peripheral vascular disease, unspecified] Onset: 08-16-2021 Chronic Pulmonary heart disease (20 sources) Recurrent pulmonary embolism; Translations: [Other pulmonary embolism without acute cor pulmonale] Onset: 09-04-2011 Resolved: 04-13-2012 Episodic Residual codes; unclassified (20 sources) Insomnia; Translations: [Insomnia, unspecified] Onset: 09-04-2008 04-13-2012 Episodic Retinal detachments; defects; vascular occlusion; and retinopathy (20 sources) Macular hole of left eye; Translations: [Macular cyst, hole, or pseudohole, left eye] Onset: 06-19-2020 Resolved: 06-02-2022 06-19-2020 Chronic Superficial injury; contusion (4 sources) Contusion of head; Translations: [Contusion of unspecified part of head, initial encounter] Episodic Unclassified (1 source) PAD (peripheral artery disease) (HCC) 05-24-2024 Unclassified (2 sources) Chronic low back pain without sciatica, unspecified back pain laterality; Translations: [Chronic low back pain without sciatica, unspecified back pain laterality] Onset: 01-01-2022 Past or Other Problems Problem Classification Problem Date Documented Da te Episodic/Chronic Anal and rectal conditions (20 sources) Perirectal abscess; Translations: [Rectal abscess] Onset: 08-10-2009 Resolved: 05-28-2010 05-28-2010 Episodic Calculus of urinary tract (20 sources) Ureteric stone; Translations: [Calculus of ureter] Onset: 05-07-2011 Resolved: 04-13-2012 04-01-2021 Episodic Complications of surgical procedures or medical care (3 sources) Drug therapy finding; Translations: [Unspecified adverse effect of drug or medicament, initial encounter] Onset: 01-06-2024 01-06-2024 Episodic Conditions associated with dizziness or vertigo (6 sources) Dizziness; Translations: [Dizziness and giddiness] Onset: 02-02-2024 02-15-2024 Episodic Conduction disorders (20 sources) Left bundle branch block; Translations: [Left bundle-branch block, unspecified] Onset: 05-28-2010 Resolved: 05-18-2013 05-18-2013 Chronic Disorders of teeth and jaw (7 sources) Sore gums; Translations: [Other specified disorders of gingiva and edentulous alveolar ridge] Onset: 12-14-2023 Episodic Fracture of lower limb (20 sources) Closed fracture of distal phalanx of great toe; Translations: [Nondisplaced fracture of distal phalanx of right great toe, initial encounter for closed fracture] Onset: 01-16-2021 Resolved: 11-13-2021 01-16-2021 Episodic Gastritis and duodenitis (20 sources) Acute gastritis; Translations: [Acute gastritis without bleeding] Onset: 04-20-2023 12-29-2022 Episodic Gastrointestinal hemorrhage (20 sources) Rectal hemorrhage; Translations: [Hemorrhage of anus and rectum] Onset: 06-30-2012 Resolved: 08-16-2012 08-16-2012 Episodic Hemorrhoids (20 sources) External hemorrhoids; Translations: [Residual hemorrhoidal skin tags] Onset: 06-19-2014 Resolved: 06-02-2022 06-19-2014 Episodic Malaise and fatigue (3 sources) Fatigue; Translations: [Other fatigue] Onset: 01-20-2024 01-06-2024 Episodic Mycoses (2 sources) Onychomycosis; Translations: [Tinea unguium] Onset: 07-28-2024 05-19-2024 Episodic Other aftercare (1 source) 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; Translations: [correction (current) use of anticoagulants] Onset: 10-26-2019 Episodic Other aftercare (1 source) Encounter for therapeutic drug level monitoring; Translations: [Encounter for therapeutic drug monitoring] Onset: 08-10-2024 Episodic Other and unspecified benign neoplasm (20 sources) Polyp of colon; Translations: [Polyp of colon] Onset: 11-29-2018 11-29-2018 Episodic Other connective tissue disease (20 sources) Cramp in lower limb; Translations: [Cramp and spasm] Onset: 03-31-2014 Resolved: 10-11-2014 10-11-2014 Episodic Other connective tissue disease (1 source) Pain in left toe(s); Translations: [Pain in toe of left foot] Onset: 07-28-2024 Episodic Other connective tissue disease (1 source) Pain in right toe(s); Translations: [Pain in toe of right foot] Onset: 07-28-2024 Episodic Other diseases of kidney and ureters (20 sources) Renal impairment; Translations: [Disorder of kidney and ureter, unspecified] Onset: 04-04-2021 04-04-2021 Episodic Other fractures (2 sources) Wedge compression fracture of first lumbar vertebra, subsequent encounter for fracture with routine healing; Translations: [Compression fracture of L1 vertebra with routine healing, subsequent encounter] Onset: 07-15-2023 Episodic Other injuries and conditions due to external causes (1 source) Encounter for examination and observation following other accident; Translations: [Encounter for examination and observation following other accident] Onset: 06-02-2023 Episodic Other lower respiratory disease (20 sources) Chronic cough; Translations: [Chronic cough] Onset: 10-04-2015 Resolved: 05-05-2016 05-05-2016 Episodic Other nervous system disorders (20 sources) Abnormal gait; Translations: [Unspecified abnormalities of gait and mobility] Onset: 04-28-2011 Resolved: 01-23-2023 04-28-2011 Episodic Other nervous system disorders (20 sources) Impairment of balance; Translations: [Other abnormalities of gait and mobility] Onset: 03-12-2020 03-12-2020 Episodic Phlebitis; thrombophlebitis and thromboembolism (20 sources) H/O: Deep vein thrombosis; Translations: [Personal history of other venous thrombosis and embolism] Onset: 09-07-2012 Resolved: 05-17-2013 05-17-2013 Episodic Residual codes; unclassified (1 source) Other specified postprocedural states; Translations: [History of left-sided carotid endarterectomy] Onset: 10-26-2019 Episodic Screening and history of mental health and substance abuse codes (2 sources) Tobacco use and exposure - finding; Translations: [Personal history of nicotine dependence] Onset: 01-06-2024 08-25-2023 Episodic Spondylosis; intervertebral disc disorders; other back problems (20 sources) Lumbar spondylosis; Translations: [Spondylosis without myelopathy or radiculopathy, lumbar region] Onset: 05-05-2011 Resolved: 10-21-2017 12-10-2022 Chronic Spondylosis; intervertebral disc disorders; other back problems (20 sources) Low back pain; Translations: [Lumbago] Onset: 02-23-2009 04-26-2018 Episodic Results Test Name Value Interpretation Reference Range Facility Eosinophils Auto (Bld) [#/Vo l]on 10-20-2024 Eosinophils (Bld) [#/Vol] 0.16 10*3/uL [facility] Interpretation and review of laboratory results [facility] OCT MACULA CIRRUS OU (BOTH E YES)on 08-11-2024 [facility] Radiology Study observation (narrative) [facility] CNOVon 08-09-2024 CNOV Office Visit (ARUNA ) ALEX BROOKS ([id number]) 1945 M T Date Time Provider Department 08/09/24 2:00 PM WALT YANG During your visit today, we recorded the following information about you: Walt Yang R Ac 08/10/2024 9:28 AM Signed Alex Brooks a 78 year old male presents to the acupuncture clinic on 08/10/24 for a follow up visit. Patient identity confirmed by name and : Yes This is the 2 visit for the patient this year It has been 2 week(s) since the last acupuncture treatment. 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 Circulation in lower extremities has been significantly reduced by manifested purplish discoloration. Patient was able to feel light touch using an alcohol pad to swab his leg skin. Dryness and muscle atrophy in lower legs especially. Patient was diagnosed with arthritis 10 years ago. He was on percocet for 13 weeks which was temporarily beneficial for a while and worn off quickly. Patient has a history of fall in the kitchen and fractured his L1 vertebra spine in early 2023. He has been experiencing sciatica on both legs with persistent pain in lumbosacral region. In 1994, patient has been suffering from neuropathy with dropped foot. He really enjoyed drinking wine for many years. He was advised to cut back on reducing alcohol intake. He was living in [facility] since he was born and moved to [place] for job-related which he regret as business environment and living was not the same. About 10 year ago, he moved to [place] and that was when he started experiencing exacerbation of all the condition. 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 Patient would benefit from acupuncture therapy to address listed deficiencies and return to PLOF. Pt was educated on symptoms, prognosis, plan of care and activity modifications. Pt verbalized understanding and agreed to begin care. TCM Pattern: Chronic low back pain without sciatica, unspecified back pain laterality (primary encounter diagnosis) due to qi stagnation and blood stasis TCM Treatment Principle: regulate qi and invigorate blood to relieve pain PLAN OF CARE Counseled patient on risks of acupuncture treatment including pain, infection, bleeding, and no relief of pain. The patient was positioned comfortably. There was no evidence of infection at the site of needle insertions. Acupuncture Treatment: Treatment/Needle Set 1, Prone: Points: perispinal L4/5, 5/S1, UB24, UB25, Martín Bennett, UB31, GB30, Artemio Miguel 15 minutes face to face with patient for set 1 Treatment/Needle Set 2, Prone: Points: UB40, GB34, GB39, KD10, KD3, KD7, UB60 10 minutes face to face with patient for set 2 Carlisle were retained for 30 minutes # of needles inserted: 30 # of needles withdrawn: 30 Adjunct techniques used: TDP Infrared Heat Lamp- Applied to lower back Patient tolerated the procedure well. UNIVERSAL PROTOCOL / SAFETY CHECKLIST Procedure to be Performed: Acupuncture Sign In: A Moment of CARE was completed. Appropriate PPE (Personal Protective Equipment) worn by all providers involved with the procedure. Special equipment not required. Patient/Surrogate Stated/Verified: Patient name, Date of , Relevant allergies, and The intended procedure Time Out: Relevant labs, photos, and/or imaging studies have been reviewed. Intended patient and procedure match the source document(s) (e.g. consent, HANDP, associated studies [imaging, pathology]) are not applicable. Consent obtained and matches the intended procedure. Correct side/site is not applicable. Medications required for this procedure are verified. Fire risk assessed and is not applicable. Implants: are not applicable. Sign Out: Specimens are all correctly labeled and sent. All instruments, equipment, possible retained foreign bodies are accounted for. The post-procedure plan of care has been communicated to the patient or surrogate. Provider Name: Jose J Chase Ac 25 Total minut (more content not included)... Normal [facility] NITRIC OXIDE, EXHALEDon 05-0 Mariana Barbosa R RT 08/04/2024 12:35 PM RESPIRATORY THERAPY ORAL EXHALED NITRIC OXIDE SERVICE DATE: 08/04/2024 SERVICE TIME: 12:34 PM Oral Exhaled Nitric Oxide measurement: 34.0 (ppb) Normal: Adult <25 ppb, pediatric (<12 years) <20 ppb High Normal / Increased: Adult 25-50 ppb, pediatric (<12 years) 20-35 ppb Moderately raised exhaled Nitric Oxide may indicate underlying inflammation, but note that: Cold and influenza can raise exhaled Nitric Oxide and some patients have higher baseline exhaled Nitric Oxide levels than others. High: Adult >50 ppb, pediatric (<12 years) >35 ppb Indicative of ongoing eosinophilic inflammation. Symptomatic patient likely to respond to steroids. Possible causes (if already on steroids): Poor compliance, recent allergen exposure, steroid dose inadequate, and steroid resistance. Note that not all patients with high exhaled nitric oxide levels display symptoms. Oral Exhaled Nitric Oxide measurement (Previous Encounters) Test Date Oral Exhaled Nitric Oxide (ppb) 08/04/2024 34.0 NAME: Mariana Barbosa RRT PATIENT NAME: Alex Borjas Todd DATE: August 04, 2024 TIME: 12:34 [facility] CNOV[facility] 07[facility]26-[facility]24 CNOV Office Visit (WELLME ) ALEX BROOKS Suad ([id number]) 1945 M T Date Time Provider Department 07/26/24 2:30 PM WALT YNAG During your visit today, we recorded the following information about you: Walt Yang R Ac 07/26/2024 4:30 PM Signed Alex Suad Todd a 78 year old male presents to the acupuncture clinic on 07/26/24 for a follow up visit. 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 Patient returns with chronic low back pain, wanting to minimize taking opiate medication. He addressed neuropathy, paresthesia and drop foot condition in the lower extremities as well. His low back pain is constantly bothering the patient, experiencing daily pain in lumbosacral region. Patient was diagnosed with arthritis 10 years ago. He was on percocet for 13 weeks which was temporarily beneficial for a while and worn off quickly. Patient has a history of fall in the kitchen and fractured his L1 vertebra spine in early 2023. He has been experiencing sciatica on both legs with persistent pain in lumbosacral region. In 1994, patient has been suffering from neuropathy with dropped foot. He really enjoyed drinking wine for many years. He was advised to cut back on reducing alcohol intake. He was living in [facility] since he was born and moved to [place] for job-related which he regret as business environment and living was not the same. About 10 year ago, he moved to [place] and that was when he started experiencing exacerbation of all the condition. 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 Patient would benefit from acupuncture therapy to address listed deficiencies and return to PLOF. Pt was educated on symptoms, prognosis, plan of care and activity modifications. Pt verbalized understanding and agreed to begin care. TCM Pattern: Chronic low back pain without sciatica, unspecified back pain laterality (primary encounter diagnosis) due to qi stagnation and blood stasis TCM Treatment Principle: regulate qi and invigorate blood to relieve pain PLAN OF CARE Counseled patient on risks of acupuncture treatment including pain, infection, bleeding, and no relief of pain. The patient was positioned comfortably. There was no evidence of infection at the site of needle insertions. Acupuncture Treatment: Treatment/Needle Set 1, Prone: Points: perispinal L4/5, 5/S1, UB24, UB25, Martín Bennett, UB31, GB30, Artemio Miguel 15 minutes face to face with patient for set 1 Treatment/Needle Set 2, Prone: Points: UB40, GB34, GB39, KD10, KD3, KD7, UB60 10 minutes face to face with patient for set 2 Carlisle were retained for 30 minutes # of needles inserted: 30 # of needles withdrawn: 30 Adjunct techniques used: TDP Infrared Heat Lamp- Applied to lower back Patient tolerated the procedure well. UNIVERSAL PROTOCOL / SAFETY CHECKLIST Procedure to be Performed: Acupuncture Sign In: A Moment of CARE was completed. Appropriate PPE (Personal Protective Equipment) worn by all providers involved with the procedure. Special equipment not required. Patient/Surrogate Stated/Verified: Patient name, Date of , Relevant allergies, and The intended procedure Time Out: Relevant labs, photos, and/or imaging studies have been reviewed. Intended patient and procedure match the source document(s) (e.g. consent, HANDP, associated studies [imaging, pathology]) are not applicable. Consent obtained and matches the intended procedure. Correct side/site is not applicable. Medications required for this procedure are verified. Fire risk assessed and is not applicable. Implants: are not applicable. Sign Out: Specimens are all correctly labeled and sent. All instruments, equipment, possible retained foreign bodies are accounted for. The post-procedure plan of care has been communicated to the patient or surrogate. Provider Name: Jose J Chase 25 Total minutes face to face time spent with patient Acupuncture and Micronesian herbal t (more content not included)... [facility] Heart Perfusion W stress and W radionuclide Nataliia 07-18-2024 * * *Final Report* * * DATE OF EXAM: Jul 18 2024 9:55AM [address] CARDIAC PERF STRESS/PHARM / PROCEDURE REASON: Shortness of breath * * * * Physician Interpretation * * * * Stress Surgical Services Director Report: [facility] Date of service: 07/18/2024 7:00:09 AM Supervising physician: Izabella Moore MD PATIENT: Name: MR. ALEX BROOKS Age: 78 years Gender: M The supervising physician was in the department and immediately available. * * * Final * * * ------ PATIENT: Name: MR. ALEX BROOKS Age: 78 years Gender: M CONCLUSIONS: 1. SPECT Perfusion Study: Normal. 2. There is no scintigraphic evidence for inducible ischemia. 3. No evidence of scarred myocardium. 4. Left ventricle is normal in size. The left ventricle systolic function is normal. 5. Right ventricle is normal in size. The right ventricle systolic function is normal. 6. This is a low risk scan. Gated Stress FBP LVEF % 74 Prior Study Comparison Prior nuclear cardiology exam was performed on 06/06/19. Nuclear Med Report:1-Day Gated SPECT Myocardial Perfusion with Regadenoson Stress: Myocardial perfusion imaging was performed at rest 30 minutes following the IV injection of the radiotracer. The patient received 0.4 mg of regadenoson, via rapid IV push, immediately followed by radiotracer IV. Gated post stress tomographic imaging was performed 30 to 60 minutes later. See administered radiotracer and doses below. [facility] Date of service: 07/18/2024 7:00:09 AM Ordering Physician: TERI GRUBER. Requesting Physician: TERI GRUBER Indication: Dyspnea and SOB Interpreting physician: Soy Friend MD Height: 185.42 cm BSA: 2.13 m Weight: 88.00 kg BMI: 25.6 kg/m Imaging Protocol Limitation Reason Diaphragmatic attenuation. Exam Type: Rest Stress Radiopharm: Tc-99m Tetrofosmin Tc-99m Tetrofosmin Dosage(mCi): 13.9 36 Stress Agent: Regadenoson 0.4mg Supply provided from [facility] Resting Blood Press: 142/84 mmHg Image Quality The overall study imaging quality was deemed to be good. The following technical issues were noted: Diaphragmatic attenuation. FINDINGS: Left Ventricle Wall Motion: Stress IR:3D - All segments are normal. Rest IR:3D - Gated Stress FBP - Reversibility - Stress IR:3D Stress IR:3D Gated Stress FBP LVEF: 74 % ED Volume: 87 ml ES Volume: 23 ml TID: 0.83 Perfusion Findings Stress IR:3D - Summed Score=0 All segments demonstrate normal perfusion. Rest IR:3D - Summed Score=0 All segments demonstrate normal perfusion. Stress IR:3D Rest IR:3D Summed Score=0 Summed Score=0 LEFT VENTRICLE The left ventricle is normal in size. Left ventricular systolic function is normal. Right Ventricle The right ventricle is normal in size. Right ventricle systolic function is normal. Stress Test Findings: There is no scintigraphic evidence for inducible ischemia. There is no evidence of scarring. * * * Final * * * ------ Stress ECG Report: [facility] Date of service: 07/18/2024 7:00:09 AM Ordering physician: TERI GRUBER academic specialist: Tawana Owusu RN Interpreting physician: Izabella Moore MD Patient name: MR. ALEX BROOKS Age: 78 years Gender: M Height: 185.42 cm BSA: 2.13 m Weight: 88.00 kg BMI: 25.6 kg/m Indication: Shortness of breath and Dyspnea on exertion Stress ECG Conclusion: Conclusion: Non-diagnostic due to LBBB Prior exam comparison: Nondiagnostic at present Stress ECG Summary: The patient's resting heart rate was 68 bpm and blood pressure was 142/84 mmHg. The test was terminated due to end of protocol. No symptoms provoked during stress. The maximum heart rate was 96 bpm, which is 69% of the predicted heart rate for age. Peak blood pressure was 144/70 mmHg. The double product achieved was [address]. Medications: Last Used NIFEDIPINE 2 Days Resting ECG: Normal Sinus Rhythm and Complete LBBB Symptoms at rest: No symptoms Pharamcologic Protocol: Regadenoson Stress Exercise Table: +-----+---+---+---+ Stage HR SYS EZEKIEL +-----+---+---+---+ 1 83 +-----+---+---+---+ 2 (more content not included)... DIVISION OF RADIOLOGY Provider, [facility] Stan Macey - 07/18/2024 * * *Final Report* * * DATE OF EXAM: Jul 18 2024 9:55AM [facility] 0006 - [place] CARDIAC PERF STRESS/PHARM / PROCEDURE REASON: Shortness of breath * * * * Physician Interpretation * * * * Stress Surgical Services Director Report: [facility] Date of service: 07/18/2024 7:00:09 AM Supervising physician: Izabella Moore MD PATIENT: Name: MR. ALEX BROOKS Age: 78 years Gender: M The supervising physician was in the department and immediately available. * * * Final * * * ------ PATIENT: Name: MR. ALEX BROOKS Age: 78 years Gender: M CONCLUSIONS: 1. SPECT Perfusion Study: Normal. 2. There is no scintigraphic evidence for inducible ischemia. 3. No evidence of scarred myocardium. 4. Left ventricle is normal in size. The left ventricle systolic function is normal. 5. Right ventricle is normal in size. The right ventricle systolic function is normal. 6. This is a low risk scan. Gated Stress FBP LVEF % 74 Prior Study Comparison Prior nuclear cardiology exam was performed on 06/06/19. Nuclear Med Report:1-Day Gated SPECT Myocardial Perfusion with Regadenoson Stress: Myocardial perfusion imaging was performed at rest 30 minutes following the IV injection of the radiotracer. The patient received 0.4 mg of regadenoson, via rapid IV push, immediately followed by radiotracer IV. Gated post stress tomographic imaging was performed 30 to 60 minutes later. See administered radiotracer and doses below. [facility] Date of service: 07/18/2024 7:00:09 AM Ordering Physician: TERI GURBER. Requesting Physician: TERI GRUBER Indication: Dyspnea and SOB Interpreting physician: Soy Friend MD Height: 185.42 cm BSA: 2.13 m Weight: 88.00 kg BMI: 25.6 kg/m Imaging Protocol Limitation Reason Diaphragmatic attenuation. Exam Type: Rest Stress Radiopharm: Tc-99m Tetrofosmin Tc-99m Tetrofosmin Dosage(mCi): 13.9 36 Stress Agent: Regadenoson 0.4mg Supply provided from [facility] Resting Blood Press: 142/84 mmHg Image Quality The overall study imaging quality was deemed to be good. The following technical issues were noted: Diaphragmatic attenuation. FINDINGS: Left Ventricle Wall Motion: Stress IR:3D - All segments are normal. Rest IR:3D - Gated Stress FBP - Reversibility - Stress IR:3D Stress IR:3D Gated Stress FBP LVEF: 74 % ED Volume: 87 ml ES Volume: 23 ml TID: 0.83 Perfusion Findings Stress IR:3D - Summed Score=0 All segments demonstrate normal perfusion. Rest IR:3D - Summed Score=0 All segments demonstrate normal perfusion. Stress IR:3D Rest IR:3D Summed Score=0 Summed Score=0 LEFT VENTRICLE The left ventricle is normal in size. Left ventricular systolic function is normal. Right Ventricle The right ventricle is normal in size. Right ventricle systolic function is normal. Stress Test Findings: There is no scintigraphic evidence for inducible ischemia. There is no evidence of scarring. * * * Final * * * ------ Stress ECG Report: [facility] Date of service: 07/18/2024 7:00:09 AM Ordering physician: TERI GRUBER academic specialist: Tawana Owusu RN Interpreting physician: Izabella Moore MD Patient name: MR. ALEX BROOKS Age: 78 years Gender: M Height: 185.42 cm BSA: 2.13 m Weight: 88.00 kg BMI: 25.6 kg/m Indication: Shortness of breath and Dyspnea on exertion Stress ECG Conclusion: Conclusion: Non-diagnostic due to LBBB Prior exam comparison: Nondiagnostic at present Stress ECG Summary: The patient's resting heart rate was 68 bpm and blood pressure was 142/84 mmHg. The test was terminated due to end of protocol. No symptoms provoked during stress. The maximum heart rate was 96 bpm, which is 69% of the predicted heart rate for age. Peak blood pressure was 144/70 mmHg. The double product achieved was [id number]. Medications: Last Used NIFEDIPINE 2 Days Resting ECG: Normal Sinus Rhythm and Complete LBBB Symptoms at rest: No symptoms Pharamcologic Protocol: Regadenoson Stress Exercise Table: +-----+---+---+---+ Stage HR SYS EZEKIEL +-----+---+---+---+ 1 83 +-----+---+---+---+ 2 103 158 76 +-----+---+---+---+ 3 98 +-----+---+---+---+ 4 96 144 70 +-----+---+---+---+ +-----+--+---+---+ HR SYS EZEKIEL +-----+--+---+---+ Final 96 144 70 +-----+--+---+---+ +------+-------- (more content not included)... [facility] Radiology Study observation (narrative) [facility] NM Heart Perfusion W stress and W radionuclide IVOrdered By: [facility] Provider on 07-18-2024 [facility] PT panel Coag (PPP)Ordered B y: Cheyenne Obrien on 03-24-2024 INR Coag (PPP) [Relative time] 2.2 {INR} High 0.9 - 1.3 [facility] Comment on above: Vitamin K Antagonist (VKA) Therapeutic Range: INR 2 to 3 (Target INR of 2.5) Note: For patients treated with VKA drugs, such as warfarin, the [employer] 2012 Guideline recommends a therapeutic INR range of 2 to 3 (target INR of 2.5). This recommendation includes high-risk patients with antiphospholipid syndrome with previous arterial or venous thromboembolism, current-generation mechanical or bioprosthetic aortic heart valve replacement. Note: Patients with mechanical aortic valve replacement and additional risk factors for thromboembolic events (atrial fibrillation, previous thromboembolism, LV dysfunction, hypercoagulable conditions) or an older generation mechanical AVR (i.e., ball in-Cage) or any mechanical MVR should have a INR therapeutic range of 2.5 to 3.5 (target INR of 3). Cordell GH, et al. Chest 2012, 141:7S-47S Lin MCCRARY, et al. [facility] 2017, 70: 252-289 Interpretation and review of laboratory results Abnormal [facility] PT Coag (PPP) [Time] 21.5 s High [facility] PT panel Coag (PPP)on 2023 INR Coag (Bld) [Relative time] 2.5 (ext) 2.0 - 3.[address] [facility] [address] Head WO contraston 2023 IMPRESSION: No acute intracranial abnormality or significant change from 03/07/2019 [facility] Laboratory Technician: BIRD Transcribe Date/Time: Feb 29 2024 12:38P Dictated by : GAYLE MOLINA DO This examination was interpreted and the report reviewed and electronically signed by: GAYLE MOLINA DO on Feb 29 2024 12:43PM [facility] DIVISION OF RADIOLOGY * * *Final Report* * * DATE OF EXAM: Feb 29 2024 12:00PM [facility] 0504 - CT BRAIN WO IVCON / PROCEDURE REASON: multiple diagnoses * * * * Physician Interpretation * * * * EXAMINATION: CT BRAIN WO IVCON CLINICAL HISTORY: Primary hypertension. Dizziness. TECHNIQUE: Serial axial images without IV contrast were obtained from the vertex to the foramen magnum. MQ: CTBWO_3 CT Radiation dose: Integrated Dose-Length Product (DLP) for this visit = 719 mGy*cm CT Dose Reduction Employed: Automated exposure control(AEC) and iterative recon COMPARISON: Head CT March 2019. RESULT: Localizer images: No additional findings. Post-operative change: None. Acute change: No evidence of an acute infarct or other acute parenchymal process. Hemorrhage: No evidence of acute intracranial hemorrhage. ECASS hemorrhagic transformation score: Not Applicable Mass Lesion / Mass Effect: There is no evidence of an intracranial mass or extraaxial fluid collection. No significant mass effect. Chronic change: Scattered patchy foci of low attenuation are present within supratentorial white matter which is a nonspecific finding but likely represents mild microvascular ischemia. Small focus of calcification in the left parietal lobe again present. Bilateral hippocampal mineralization. Left greater than right anterior frontal encephalomalacia which may be posttraumatic in nature. Calcific atherosclerotic plaque at the carotid siphons intradural vertebral arteries. Parenchyma: There is no significant volume loss. The brain parenchyma is otherwise within normal limits for age. Ventricles: The ventricles are within normal limits of size and configuration for age. Paranasal sinuses and skull base: The visualized paranasal sinuses are grossly clear. The skull base and imaged soft tissues are unremarkable. Bilateral pseudophakia. DIV[facility]Y [facility] * * *Final Report* * * DATE OF EXAM: Feb 29 2024 12:00PM [facility] 0504 - CT BRAIN WO IVCON / PROCEDURE REASON: multiple diagnoses * * * * Physician Interpretation * * * * EXAMINATION: CT BRAIN WO IVCON CLINICAL HISTORY: Primary hypertension. Dizziness. TECHNIQUE: Serial axial images without IV contrast were obtained from the vertex to the foramen magnum. MQ: CTBWO_3 CT Radiation dose: Integrated Dose-Length Product (DLP) for this visit = 719 mGy*cm CT Dose Reduction Employed: Automated exposure control(AEC) and iterative recon COMPARISON: Head CT March 2019. RESULT: Localizer images: No additional findings. Post-operative change: None. Acute change: No evidence of an acute infarct or other acute parenchymal process. Hemorrhage: No evidence of acute intracranial hemorrhage. ECASS hemorrhagic transformation score: Not Applicable Mass Lesion / Mass Effect: There is no evidence of an intracranial mass or extraaxial fluid collection. No significant mass effect. Chronic change: Scattered patchy foci of low attenuation are present within supratentorial white matter which is a nonspecific finding but likely represents mild microvascular ischemia. Small focus of calcification in the left parietal lobe again present. Bilateral hippocampal mineralization. Left greater than right anterior frontal encephalomalacia which may be posttraumatic in nature. Calcific atherosclerotic plaque at the carotid siphons intradural vertebral arteries. Parenchyma: There is no significant volume loss. The brain parenchyma is otherwise within normal limits for age. Ventricles: The ventricles are within normal limits of size and configuration for age. Paranasal sinuses and skull base: The visualized paranasal sinuses are grossly clear. The skull base and imaged soft tissues are unremarkable. Bilateral pseudophakia. IMPRESSION IMPRESSION: No acute intracranial abnormality or significant change from 03/07/2019 [facility] Technician: PSCB Transcribe Date/Time: Feb 29 2024 12:38P Dictated by : GAYLE MOLINA DO This examination was interpreted and the report reviewed and electronically signed by: GAYLE MOLINA DO on Feb 29 2024 12:43PM EST [facility] Radiology Study observation (narrative) [facility] CT Head WO contrastOrdered B y: [facility] Provider on 02-29-2024 [facility] 12 Lead EKGon 01-08-2024 12 Lead EKG [facility] Cardiovascular Services [address] [place] [address] 12 Lead EKG 01/08/24 1906 MR#: [id number] Acct: [id number] Name: ALEX BROOKS Rep #: [id number] : 1945 78 From: Aidan Atkinson MD Attending Dr: Status: DEP ER Ordering Dr: Lisandro Mora MD Date: 01/08/24 Location: ED Sex: M C Admitted: Test Reason : CP Blood Pressure : / mmHG Vent. Rate : 099 BPM Atrial Rate : 099 BPM P-R Int : 148 ms QRS Dur : 128 ms QT Int : 350 ms P-R-T Axes : 039 023 215 degrees QTc Int : 449 ms Normal sinus rhythm Left bundle branch block Abnormal ECG Confirmed by AIDAN ATKINSON MD ([id number]), city editor GEGE TURPIN ([id number]) on 01/12/2024 10:11:14 AM Referred By: Confirmed By:AIDAN ATKINSON MD 01/12/24 1011 Date Aidan Atkinson MD CC: CHRISTAL Lam; Dr. Lisandro Mora MD Signed Normal [facility] BNP,B-Type NATRIURETIC PEPTI Uma 01-08-2024 Natriuretic peptide B (Bld) [Mass/Vol] 17.2 pg/mL Normal 0-100 [facility] Comment on above: Performed By: #### L 503.6620 ####[facility] [address] [place], [address] Basic Metabolic Profile (BMP )on 01-08-2024 BUN/CRE 28.9 RATIO High 10-20 [facility] Comment on above: Order Comment: 'TROP ' Serial specimen #1, #2 or #3: 1 Performed By: #### L 500.2500, L100.0100, L501.4020 #### [facility] [address] [place], [address] CA,Total 9.3 mg/dL Normal 8.5-10.1 [facility] Comment on above: Order Comment: 'TROP ' Serial specimen #1, #2 or #3: 1 Performed By: #### L 500.2500, L100.0100, L501.4020 #### [facility] [address] [place], [address] Chloride [Moles/Vol] 114 mmol/L High 98-107 [facility] Comment on above: Order Comment: 'TROP ' Serial specimen #1, #2 or #3: 1 Performed By: #### L 500.2500, L100.0100, L501.4020 #### [facility] [address] [place], [address] CO2 [Moles/Vol] 24.0 mmol/L Normal 21.0-32.0 [facility] Comment on above: Order Comment: 'TROP ' Serial specimen #1, #2 or #3: 1 Performed By: #### L 500.2500, L100.0100, L501.4020 #### [facility] [address] [place], [address] Creatinine [Mass/Vol] 0.76 mg/dL Normal 0.70-1.30 [facility] Comment on above: Order Comment: 'TROP ' Serial specimen #1, #2 or #3: 1 Result Comment: The validity of the calculated GFR GFRAA in patients over 70 years has not been determined. Clinical correlation is essential. Performed By: #### L 500.2500, L100.0100, L501.4020 #### [facility] [address] [place], [address] ECRCL 83.23 ml/min Normal [facility] Comment on above: Order Comment: 'TROP ' Serial specimen #1, #2 or #3: 1 Performed By: #### L 500.2500, L100.0100, L501.4020 #### [facility] [address] [place], [address] EST GFR - AA 127 mL/min Normal >60 [facility] Comment on above: Order Comment: 'TROP ' Serial specimen #1, #2 or #3: 1 Result Comment: Afri can Burmese GFR Calc Performed By: #### L 500.2500, L100.0100, L501.4020 #### [facility] [address] [place], [address] GAP 4 Low 5-15 [facility] Comment on above: Order Comment: 'TROP ' Serial specimen #1, #2 or #3: 1 Performed By: #### L 500.2500, L100.0100, L501.4020 #### [facility] [address] [place], [address] GFR/1.73 sq M.predicted among non-blacks MDRD (S/P/Bld) [Vol rate/Area] 105 mL/min/{1.73_m2} Normal >60 [facility] Comment on above: Order Comment: 'TROP ' Serial specimen #1, #2 or #3: 1 Result Comment: Non- GFR Calc Performed By: #### L 500.2500, L100.0100, L501.4020 #### [facility] [address] [place], [address] Glucose [Mass/Vol] 124 mg/dL High 74-106 [facility] Comment on above: Order Comment: 'TROP ' Serial specimen #1, #2 or #3: 1 Result Comment: Fast ing Glucose result from 100 to 125 mg/dL suggests IMPAIRED HOMEOSTASIS per A.D.A. criteria. Performed By: #### L 500.2500, L100.0100, L501.4020 #### [facility] [address] [place], [address] Potassium [Moles/Vol] 4.1 mmol/L Normal 3.5-5.1 [facility] Comment on above: Order Comment: 'TROP ' Serial specimen #1, #2 or #3: 1 Performed By: #### L 500.2500, L100.0100, L501.4020 #### [facility] [address] [place], [address] Sodium [Moles/Vol] 143 mmol/L Normal 136-145 [facility] Comment on above: Order Comment: 'TROP ' Serial specimen #1, #2 or #3: 1 Performed By: #### L 500.2500, L100.0100, [id number] #### [facility] [address] [place], [address] Urea nitrogen [Mass/Vol] 22 mg/dL High 7-18 [facility] Comment on above: Order Comment: 'TROP ' Serial specimen #1, #2 or #3: 1 Performed By: #### L 500.2500, L100.0100, [id number] #### [facility] [address] [place], [address] CBC W/Diff, Automatedon 10-0 4-4 Absolute Lymph 2.99 X10 3/uL Normal 0.83-4.51 [facility] Comment on above: Performed By: #### L 500.2500, L100.0100, L501.4020 #### [facility] [address] [place], [address] Absolute Neut 4.1 X10 3/uL Normal 2.0-7.7 [facility] Comment on above: Performed By: #### L 500.2500, L100.0100, [id number] #### [facility] [address] [place], [address] Basophils/100 WBC (Bld) 0.7 % Normal 0-1 [facility] Comment on above: Performed By: #### L 500.2500, L100.0100, [id number] #### [facility] [address] [place], [address] Eosinophils/100 WBC (Bld) 3.6 % Normal 0-5 [facility] Comment on above: Performed By: #### L 500.2500, L100.0100, [id number] #### [facility] [address] [place], [address] Erythrocyte distribution width (RBC) [Ratio] 13.9 % Normal 11.6-14.6 [facility] Comment on above: Performed By: #### L 500.2500, L100.0100, L501.4020 #### [facility] [address] [place], [address] Hematocrit (Bld) [Volume fraction] 48.2 % Normal 40-54 [facility] Comment on above: Performed By: #### L 500.2500, L100.0100, [id number] #### [facility] [address] [place], [address] Hemoglobin (Bld) [Mass/Vol] 15.8 g/dL Normal 13.0-16.5 [facility] Comment on above: Performed By: #### L 500.2500, L100.0100, L501.4020 #### [facility] [address] [place], [address] IG% 0.100 Normal 0.0-0.9 [facility] Comment on above: Result Comment: IG% - Immature Granulocytes (promyelocytes, myelocytes and metamyelocytes) > 1% indicates that a LEFT SHIFT is Present. Performed By: #### L 500.2500, L100.0100, L501.4020 #### [facility] [address] [place], [address] Lymphocytes/100 WBC (Bld) 36.3 % Normal 19-41 [facility] Comment on above: Performed By: #### L 500.2500, L100.0100, L501.4020 #### [facility] [address] [place], [address] MCH (RBC) [Entitic mass] 30.9 pg Normal 27.0-32.0 [facility] Comment on above: Performed By: #### L 500.2500, L100.0100, L501.4020 #### [facility] [address] [place], [address] MCHC (RBC) [Mass/Vol] 32.8 g/dL Normal 32-36 [facility] Comment on above: Performed By: #### L 500.2500, L100.0100, L501.4020 #### [facility] [address] [place], [address] MCV (RBC) [Entitic vol] 94.1 fL High 80-94 [facility] Comment on above: Performed By: #### L 500.2500, L100.0100, L501.4020 #### [facility] [address] [place], [address] Monocytes/100 WBC (Bld) 9.1 % Normal 0-10 [facility] Comment on above: Performed By: #### L 500.2500, L100.0100, L501.4020 #### [facility] [address] [place], [address] Neutrophils/100 WBC (Bld) 50.2 % Normal 47-70 [facility] Comment on above: Performed By: #### L 500.2500, L100.0100, L501.4020 #### [facility] [address] [place], [address] Nucleated RBC (Bld) [#/Vol] 0 10*3/uL Normal 0-5 [facility] Comment on above: Performed By: #### L 500.2500, L100.0100, L501.4020 #### [facility] [address] [place], [address] Platelet mean volume (Bld) [Entitic vol] 9.1 fL Normal 6.2-12.0 [facility] Comment on above: Performed By: #### L 500.2500, L100.0100, L501.4020 #### [facility] [address] [place], [address] Platelets (Bld) [#/Vol] 210 10*3/uL Normal 150-450 [facility] Comment on above: Performed By: #### L 500.2500, L100.0100, L501.4020 #### [facility] [address] [place], [address] RBC (Bld) [#/Vol] 5.12 10*6/uL Normal 4.6-6.2 [facility] Comment on above: Performed By: #### L 500.2500, L100.0100, L501.4020 #### [facility] [address] [place], [address] RDW SD 48.1 fl High 35.1-43.9 [facility] Comment on above: Performed By: #### L 500.2500, L100.0100, L501.4020 #### [facility] [address] [place], [address] WBC (Bld) [#/Vol] 8.2 10*3/uL Normal 4.4-11.0 [facility] Comment on above: Performed By: #### L 500.2500, L100.0100, L501.4020 #### [facility] [address] [place], [address] Chest 1 View (Portable)on Chest 1 View (Portable) [facility] Imaging Services [address] [place] [address] Chest 1 View (Portable) MR#: [id number] Acct: [id number] Name: ALEX BROKOS Rep #: [id number] : 1945 M 78 From: Jake ojeda MD PCP: MIGEL NavarroC Status: REG ER Study: Chest 1 View (Portable) Date of Exam: 01/08/24 Exam# [id number] Ordering Dr: Lisandro Mora [place] [id number] STUDY: X-RAY CHEST REASON FOR EXAM: Male, 78 years old. dizziness TECHNIQUE: Single AP portable view of the chest. COMPARISON: 01/12/2019. FINDINGS: Normal lung volumes. Ill-defined pulmonary densities of the lung bases suggestive of scarring or subsegmental atelectasis. No definite pneumonia. No definite effusions. Normal size heart. Normal mediastinum and tricia. There is prominence of the pulmonary hilar arteries without peripheral pulmonary vascular congestion, suggesting pulmonary hypertension. Normal visualized aortic arch and descending thoracic aorta. Normal visualized thoracic spine. Normal visualized ribs, clavicles, and shoulders. There is no demonstrated abnormality of the visualized soft tissue structures of the upper abdomen. RAD/Chest 1 View (Portable) IMPRESSION: Ill-defined pulmonary densities of the lung bases suggestive of scarring or subsegmental atelectasis. No definite pneumonia. Electronically Signed: Jake Duckworth MD at 20:49 EDT , CC: CHRISTAL Lam; Dr. Lisandro Mora MD [facility] Laboratory Technician: Signed Normal [facility] Emergency Department Summary on 01-08-2024 Emergency Department Summary [facility] Medical Records Department [address] [place] [address] Emergency Department Summary 01/08/24 MR#: [id number] Acct: [id number] Name: ALEX BROOKS Rep #: [id number] : 1945 78 From: Lisandro Mora MD PCP: CRHISTAL Navarro Status:REG ER Location: ED HPI History of Present Illness Chief Complaint: Dizziness Informant: patient Narrative Narrative: 78-year-old male states for a while he has been having episodes of lightheadedness and sweats. States sometimes his blood pressure is high when this happens like it was today in the 170s. However today, he has been having the sensation that he states is very difficult to describe, like a fan in my head. He states it feels like a bal. He has never had this before which is why he presents to the emergency department but states that the other symptoms have been off and on for weeks and he saw his doctor for it and had some blood work and an EKG that were unremarkable. He states prior to coming today he took an extra lisinopril in addition to the 1 that he took this morning. He also states he decided to take his warfarin earlier than usual in the day because he thought maybe the rash meant that his blood was not thin enough. He denies any chest discomfort or palpitations. No orthopnea but he does have dyspnea on exertion for the last couple weeks, just with walking from room to room in his apartment. States he has a minor cough but is nonproductive and does not feel like he has an illness, no fevers or chills. No leg edema. [facility] Medical History Wears glasses Alcohol use Kidney stone Back pain Injury of head and neck Former smoker Asthma Hoarseness History of pain when walking History of edema Hypertension History of echocardiogram History of stress test Cardiology follow-up encounter GERD (gastroesophageal reflux disease) Essential hypertension Lumbago-sciatica due to displacement of lumbar intervertebral disc Osteoarthritis Hyperlipidemia Neuropathy Left bundle branch block Pulmonary embolism Home Medications ???Medication ???Instructions ???Recorded ???Last Taken ???Type lisinopril 20 2 tab PO DAILY 11/11/17 03/23/22 History mg-hydrochlorothiazide 12.5 mg tablet ascorbic acid (vitamin C) 1,000 mg 1 g PO DAILY 12/16/18 Unknown History tablet coenzyme Q10 200 mg capsule 400 mg PO DAILY 12/16/18 Unknown History cyanocobalamin (vitamin B-12) 2,500 mcg sublingual BID 12/16/18 Unknown History 2,500 mcg sublingual lozenge fluticasone propionate 50 1 spray intranasal DAILY 12/16/18 Unknown History mcg/actuation nasal spray,suspension (Allergy Relief (fluticasone)) magnesium oxide 400 mg PO BID 12/16/18 Unknown History multivitamin 2 tab PO DAILY 12/16/18 Unknown History rosuvastatin 10 mg tablet (Crestor) 40 mg PO QHS 12/16/18 Unknown History saw palmetto 450 mg capsule 450 mg PO BID 12/16/18 Unknown History aspirin 81 mg tablet 81 mg PO DAILY 01/10/21 Unknown History potassium chloride 10 mEq 10 meq PO BID 01/10/21 Unknown History capsule,extended release warfarin 10 mg tablet 10 mg PO DAILY 01/10/21 03/18/22 History famotidine 40 mg tablet 40 mg PO PRN PRN GERD 03/20/22 Unknown History lorazepam 1 mg tablet 2 mg PO QHS PRN PRN Insomnia 03/20/22 Unknown History oxycodone-acetaminophe n 5 mg-325 1 tab PO PRN PRN Pain 03/20/22 Unknown History mg tablet oxycodone-acetaminophe n 5 mg-325 1 tab PO Q8H PRN pain 3 days #10 05/14/23 Unknown Rx mg tablet (Percocet) tabs pantoprazole 40 mg granules 40 mg PO DAILY 05/14/23 Unknown History delayed-release for susp in packet (Protonix) clonidine HCl 0.1 mg tablet 0.1 - 0.2 mg (1 - 2 x 0.1 mg) PO 01/08/24 Unknown Rx TID PRN SBP>165 #15 tabs Allergy/AdvReac Type Severity Reaction Status Date / Time cephalexin (From Keflex) Allergy Intermediate Rash Verified 01/08/24 19:05 cyclobenzaprine AdvReac Mild PT UNABLE Verified 01/08/24 19:05 TO RESPOND-NEEDS F/U gabapentin AdvReac Mild Other Verified 01/08/24 19:05 Family History Father , Age 74 CAD (coronary artery disease) Myocardial infarction Mother , age 104 No problems noted. Surgical History H/O colonoscopy with polypectomy History of hand surgery Hx of carotid angioplasty RFA of lumbar spine S/P IVC filter ( 2011) Social History Smoking Status: Former smoker pack-years: 15 ROS ROS ED Constitutional Constitutional ED: Denies chills or fever(s) Eyes Eyes: Denies change in vision or diplopia ENT ENT ED: Denies rhinorrhea or sore th (more content not included)... Normal [facility] L501.4020on 01-08-2024 TROPONIN-I HS 18 pg/mL Normal 3.0-78.0 [facility] Comment on above: Order Comment: 'TROP ' Serial specimen #1, #2 or #3: 1 Result Comment: Ángel zhu Note: New Test Units and Gender Specific Reference Ranges. For more information see Policy Stat Procedure [place] High Sensitivity Troponin (TNIH) and attachments. Performed By: #### L 500.2500, L100.0100, L501.4020 #### [facility] [address] [place], [address] Prothrombin Time w/INRon INR Coag (PPP) [Relative time] 2.2 {INR} Normal [facility] Comment on above: Performed By: #### L 300.3900 ####[facility] [address] [place], [address] PT Coag (PPP) [Time] 24.2 s High 11.7-14.9 [facility] Comment on above: Performed By: #### L 300.3900 ####[facility] [address] [place], [place], [id number] PT panel Coag (PPP)on 2023 INR Coag (Bld) [Relative time] [facility] Patient calling to report lab result INR=1.3. Result in EPIC. [facility] UA DIP, URINE (POC)on 2023 BILIRUBIN UA (POCT) Negative Negative [facility] CLARITY UA (POCT) Clear [facility] COLOR UA (POCT) Yellow [facility] GLUCOSE UA (POCT) Negative Negative mg/dL [facility] Hemoglobin Ql (U) Negative Negative [facility] Interpretation and review of laboratory results Abnormal [facility] KETONE UA (POCT) Negative Negative mg/dL [facility] LEUKOCYTES UA (POCT) Negative Negative [facility] NITRITE UA (POCT) Negative Negative [facility] PH UA (POCT) 6.0 4.5 - 8.0 [facility] Protein Ql (U) 30 mg/dL Abnormal Negative [facility] SPECIFIC GRAVITY UA (POCT) 1.025 1.005 - 1.030 [facility] UROBILINOGEN UA (POCT) 0.2 Normal E.U./dL [facility] Location:[facility], [address], [place], [address] [facility] POINT OF CARE [facility] CNOVon 11-12-2023 CNOV Office Visit (ARUNA ) ALEX BROOKS ([id number]) 1945 M [facility] Date Time Provider Department 11/12/23 1:00 PM WALT YANG During your visit today, we recorded the following information about you: Walt Yang R Ac 11/12/2023 2:45 PM Signed Alex Brooks a 78 year old male presents to the acupuncture clinic on 11/12/23 for an initial consultation. 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 He was on percocet for 13 weeks which was temporarily beneficial for a while and worn off quickly. Patient has a history of fall in the kitchen and fractured his L1 vertebra spine in early 2023. He has been experiencing sciatica on both legs with persistent pain in lumbosacral region. In 1994, patient has been suffering from neuropathy with dropped foot. He really enjoyed drinking wine for many years. He was advised to cut back on reducing alcohol intake. He was living in [facility] since he was born and moved to [place] for job-related which he regret as business environment and living was not the same. About 10 year ago, he moved to [place] and that was when he started experiencing exacerbation of all the condition. 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 No diabetes Coumadin [facility] [address] [facility] [address] Dept: [phone] Alex Brooks : 1945 [facility] Medicine Acupuncture Intake Form (For Patient Review Regarding Diagnostic Exam) I have received a diagnostic exam by physician or chiropractor within the last six months regarding the condition for which I am seeking treatment. Patient Signature: Alex Callahancielo Date: 11/12/23 Piano Refinisher Signature: Walt Yang Lac. Date: 11/12/23 The patient's history is well detailed in the EMR. Current view: Showing all answers [facility] Giovanihart Additional Demo Question 11/05/2023 10:20 AM EDT - Filed by Patient Is this visit related to an accident, other than Workers' Compensation? No Is this visit related to Workers' Compensation? No Do you need an foreign language interpreter? No [facility] Promis Cat V2.0-Physical Function-28 Days Question 11/05/2023 10:21 AM EDT - Filed by Patient 08/20/2023 9:34 AM EDT - Filed by Patient 07/12/2023 5:31 AM EDT - Filed by Patient PROMIS Physical Function T-Score (range: 10 - 90) 34 (moderate dysfunction) 31 (moderate dysfunction) 27 (severe dysfunction) PROMIS Physical Function Percentile (range: 0 - 100) 5 3 1 [facility] Promis Cat V1.0 - Fatigue-28 Days Question 11/05/2023 10:22 AM EDT - Filed by Patient 08/20/2023 9:35 AM EDT - Filed by Patient PROMIS Fatigue T-Score (range: 10 - 90) 64 (moderate) 64 (moderate) PROMIS Fatigue Percentile (range: 0 - 100) 8 8 [facility] Promis Cat V1.0-Anxiety 28 Days Question 11/05/2023 10:23 AM EDT - Filed by Patient 08/20/2023 9:36 AM EDT - Filed by Patient PROMIS Anxiety T-Score (range: 10 - 90) 51 (within normal limits) 58 (mild) PROMIS Anxiety Percentile (range: 0 - 100) 46 21 [facility] Neuro-Qol Cat V2.0 Cognitive Function-28 Days Question 11/05/2023 10:23 AM EDT - Filed by Patient 08/20/2023 9:36 AM EDT - Filed by Patient Neuro-QoL - Cognitive Function T-Score (range: 10 - 90) 43 (mild dysfunction) 43 (mild dysfunction) Neuro-QoL Cognitive Function Percentile (range: 0 - 100) 24 24 [facility] Promis Cat V1.0-Satisfaction With Social Roles-28 Days Question 11/05/2023 10:25 AM EDT - Filed by Patient 08/20/2023 9:37 AM EDT - Filed by Patient PROMIS - Satisfaction with Participation in Social Roles T-Score (range: 10 - 90) 46 (Average) 33 (Low) PROMIS Social Role Satisfaction Percentile (range: 0 - 100) 34 4 [facility] Promis Cat V1.1-Pain Interference-28 Days Question 11/05/2023 10:26 AM EDT - Filed by Patient 08/20/2023 9:38 AM EDT - Filed by Patient 06/02/2023 8:25 AM EDT - Filed by Patient PROMIS Pain Interference T-Score (range: 10 - 90) (range: 10 - 90) 63 (moderate) 66 (moderate) 67 (moderate) PROMIS Pain Interference Percentile (range: 0 - 100) 10 5 4 [facility] Promis Cat V1.0-Sleep Disturbance-28 Days Question 11/05/2023 10:27 AM EDT - Filed by Patient 08/20/2023 9:39 AM EDT - Filed by Patient PROMIS Sleep Disturbance T-Score (range: 10 - 90) 49 (within normal limits) 52 (within normal limits) PROMIS Sleep Disturbance Percentile (range: 0 - 100) 54 42 [facility] Cilm Acupuncture Intake Form Question 11/05/2023 10:48 AM EDT - Filed by Patient Are you presently working? No Are you currently being treated with blood thinning medications? Yes Drug name: Warfarin Are you currently being treated with chemotherapy? No Please check all that apply: None apply Primary Reason for Treatment: Chronic lower back pain and sciatica Have you received a medical diagnosis? (more content not included)... [facility] 11-10-[address] [facility] Telephone ([facility]) ALEX BROOKS ( ) 1945 M [facility] Date Time Provider Department 11/10/23 [facility]ENY LAM [facility] During your visit today, we recorded the following information about you: Maribel Oden LPN 11/10/2023 2:16 PM Signed Last INR: INR Home CoaguChek 2.5 11/10/2023 Current dose of coumadin is: 5 mg Tues and Thurs, all other days 7.5. Last date of dose change: 10/23/23. Previous INR (date and result): 10/23/23 1.7 INR Goal 2.0 to 3.0 Additional Clinical Information or narrative: yes: Diet is always screwed up. Denies, bleeding, bruising, no alcohol or ATB. Has not missed any doses. Please advise pt. Okay to leave a detailed message on pt's phone instructions. Bonnie Sharif APRN.KAI WHAKARURUHAU 11/10/2023 3:32 PM Signed Continue with Coumadin dosage change recheck INR and check INR 2 weeks Haydee Lee LPN 11/10/2023 4:28 PM Signed Patient notified of coumadin instructions and verbalized understanding. 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 - DULoxetine (CYMBALTA) 30 mg capsule Take 1 capsule by mouth once daily. In the evening - Olopatadine (PATADAY ONCE DAILY RELIEF) 0.2 % drop Use 1 Drop in both eyes once daily. - DULoxetine (CYMBALTA) 60 mg capsule Take 1 capsule by mouth once daily. In the morning. - oxyCODONE-acetaminophe n (PERCOCET) 5-325 mg tablet Take 1 tablet by mouth every 6 hours as needed for pain for up to 7 days. - tiZANidine (ZANAFLEX) 4 mg tablet Take 1-2 tablets by mouth every 6 hours as needed. - pantoprazole DR (PROTONIX) 40 mg tablet take 1 tablet by mouth once daily ON AN EMPTY STOMACH 30 MINUTES PRIOR TO A MEAL - potassium chloride (KLOR-CON 10) 10 mEq tablet Take 1 tablet by mouth two times a day. - Back Brace (BACK SUPPORT S/M) [facility] Use as instructed. - lisinopril (ZESTRIL) 20 mg tablet Take 2 tablets by mouth once daily. Adjust dose as directed based on blood pressure readings - LORazepam (ATIVAN) 2 mg tab Take 1 tablet by mouth at bedtime as needed (insomnia) for up to 180 days. - warfarin (COUMADIN) 5 mg tablet Take 1.5 tablets on Sundays and 2 tablets Thursday through Saturdays - rosuvastatin (CRESTOR) 40 mg tablet Take 1 tablet by mouth once daily. - hydrocortisone 2.5 % cream Seldom - vitamin B complex (B COMPLEX 1 ORAL) - magnesium oxide 400 mg magnesium cap Take 1 capsule by mouth once daily. - SAW PALMETTO ORAL Take 400 mg by mouth twice daily. - coenzyme Q10 (COENZYME Q-10) 100 mg cap capsule Take 400 mg by mouth once daily. - Cyanocobalamin 2,500 mcg subl Dissolve under the tongue twice daily. - calcium, elemental, tab Take 600 mg by mouth twice daily. - multivitamin (SOFYA MULTIVITAMIN) tablet Take 1 tablet by mouth once daily. Meds Comments as of 07/03/2020: Problem List As Of Date 11/10/2023 Noted Resolved Benign prostatic hyperplasia with nocturia [N40*09/04/2008 Insomnia, unspecified [G47.00] 09/04/2008 Nonspecific abnormal results of liver function *10/05/2008 04/28/2011 Hereditary and idiopathic peripheral neuropathy*10/05/2008 Mixed hyperlipidemia [E78.2] 10/05/2008 Impaired fasting glucose [R73.01] 10/11/2008 Esophageal reflux [K21.9] 11/10/2008 10/11/2014 Lumbago [M54.50] 02/23/2009 HTN (hypertension) [I10] 07/02/2009 Perirectal abscess [K61.1] 08/10/2009 05/28/2010 Left bundle branch block [I44.7] 05/28/2010 05/18/2013 Gait abnormality [R26.9] 04/28/2011 01/23/2023 Lumbar facet arthropathy [M47.816] 05/05/2011 04/13/2012 DDD (degenerative disc disease), lumbar [M51.36]05/05/2011 04/13/2012 Lumbar spondylosis [M47.816] 05/05/2011 04/13/2012 Ureterolithiasis [N20.1] 05/07/2011 04/13/2012 Degeneration of lumbar or lumbosacral intervert*08/07/2011 04/13/2012 Lumbosacral spondylosis without myelopathy [M47*08/07/2011 10/21/2017 PE (pulmonary embolism) [I26.99] 09/04/2011 04/13/2012 Rectal bleeding [K62.5] 06/30/2012 08/16/2012 History of deep venous thrombosis [Z86.718] 09/07/2012 05/17/2013 Lens replaced by other means [Z96.1] 07/05/2013 04/20/2017 GERD (gastroesophageal reflux disease) [K21.9] 02/17/2014 DDD (degenerative disc disease), lumbar [M51.36]03/08/2014 04/20/2017 Leg cramps [R25.2] 03/31/2014 10/11/2014 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) [I26.99] 05/08/2014 External hemorrhoid [K64.4] 06/20/19 (more content not included)... [facility] PT panel Coag (PPP)on 2023 INR Coag (Bld) [Relative time] 2.5 {INR} [facility] PT panel Coag (PPP)on 2023 INR Coag (Bld) [Relative time] 1.9 (ext) 2.0 - 3.0 [facility] PT panel Coag (PPP)on 2023 INR Coag (Bld) [Relative time] 2.0 {INR} 2.0 - 3.0 [facility] XR Chest PA and Lateralon IMPRESSION: No acute radiographic abnormality. [facility] Laboratory Technician: BIRD Transcribe Date/Time: Aug 25 2023 4:47P Dictated by : DENIA BRADY MD This examination was interpreted and the report reviewed and electronically signed by: DENIA BRADY MD on Aug 25 2023 4:52PM [facility] DIVISION OF RADIOLOGY * * *Final Report* * * DATE OF EXAM: Aug 25 2023 10:31AM WOX [id number] - XR CHEST 2V FRONTAL/LAT / PROCEDURE REASON: SOB (shortness of breath) * * * * Physician Interpretation * * * * EXAMINATION: CHEST RADIOGRAPH (2 VIEW FRONTAL & LATERAL) CLINICAL HISTORY: SOB (shortness of breath) MQ: XC2_6 EXAM DATE/TIME: 08/25/2023 10:31 AM COMPARISON: 08/19/2016 and 10/04/2015 RESULT: Lines, tubes, and devices: None. Lungs and pleura: No consolidation. No lung mass. No pleural effusion. No pneumothorax. Minimal stable atelectasis or fibrosis Cardiomediastinal silhouette: Stable cardiomediastinal silhouette. Prominence of the pulmonary arteries Bones and soft tissues: Unremarkable. DIVISION OF RADIOLOGY Provider, Kisha Pierce otis Macey - 08/25/2023 * * *Final Report* * * DATE OF EXAM: Aug 25 2023 10:31AM WOX [id number] - XR CHEST 2V FRONTAL/LAT / PROCEDURE REASON: SOB (shortness of breath) * * * * Physician Interpretation * * * * EXAMINATION: CHEST RADIOGRAPH (2 VIEW FRONTAL & LATERAL) CLINICAL HISTORY: SOB (shortness of breath) MQ: XC2_6 EXAM DATE/TIME: 08/25/2023 10:31 AM COMPARISON: 08/19/2016 and 10/04/2015 RESULT: Lines, tubes, and devices: None. Lungs and pleura: No consolidation. No lung mass. No pleural effusion. No pneumothorax. Minimal stable atelectasis or fibrosis Cardiomediastinal silhouette: Stable cardiomediastinal silhouette. Prominence of the pulmonary arteries Bones and soft tissues: Unremarkable. IMPRESSION IMPRESSION: No acute radiographic abnormality. [facility] Laboratory Technician: PSCB Transcribe Date/Time: Aug 25 2023 4:47P Dictated by : DENIA BRADY MD This examination was interpreted and the report reviewed and electronically signed by: DENIA BRADY MD on Aug 25 2023 4:52PM [facility] Radiology Study observation (narrative) [facility] XR Chest PA and LateralOrder ed By: Ccf Provider on 08-25-2023 [facility] PT panel Coag (PPP)on 2023 [facility] CNPPolly 07-30-2023 [facility] ( ) 1945 [facility] Date Time Provider Department 07/30/23 ZENY LAM During your visit today, we recorded the following information about you: Maribel Oden LPN 07/30/2023 12:04 PM Signed Last INR: INR Home DiegoguChek 1.9 07/30/2023 Current dose of coumadin is: 5 mg daily. Last date of dose change: 06/12/23. Previous INR (date and result): 07/15/23 2.4 INR Goal 2.0 to 3.0 Additional Clinical Information or narrative: no denies and bleeding, bruising, missed doses, recent ATB. Pt reports he has been eating a lot of ice cream. Pt wanted you to know he will be off coumadin 08/01/23 thru 08/05/23. Starting back on this 08/06/23. Pt having a dental work done on 08/06/23. Pt reports he will do an INR 5 days after returning to coumadin and reports when he has gone of coumadin in the past, his INR is normally 1.3. What do you recommend as a dosage regiment starting on 08/06/23? Please advise pt with recommendations. If pt does not answer please leave a detailed message. ALVERTO Jain Terri, APRN.KAI WHAKARURUHAU 07/30/2023 12:49 PM Signed Continue with current Coumadin dosing unchanged. Regarding dental appointment: Recommend checking INR 5 to 7 days after resuming Coumadin. He may resume Coumadin at 5 mg daily. Celia James LPN 07/30/2023 1:23 PM Signed Left detailed message regarding coumadin instructions and was advised to call back to confirm message was received. Molly Olmos LPN RN 07/30/2023 1:26 PM Signed Spoke with patient. Given message from provider's office. Patient verbalizes understanding. He confirmed he received VM message. Molly Ann RN Allergies As of Date: 07/30/2023 Noted Allergy Reaction CYCLOBENZAPRINE 08/22/2022 14 - Other: See Comments Comments: Double vision GABAPENTIN 11/24/2022 5 - Intolerance KEFLEX (CEPHALEXIN) 08/21/2014 2 - Rash Date Reviewed: 07/27/2023 Reviewed by: Zeny Lam APRN.DELIVERY CLERK - Fully Assessed Reason for Visit: Anticoagulation [8] Primary Visit Diagnosis:correction (current) use of anticoagulants [Z79.01] Other Visit Diagnosis: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) [I26.99] Order(s):PROTHROMBIN TIME [SQPT] Order #: [id number] Prescriptions as of 07/30/2023 - pantoprazole DR (PROTONIX) 40 mg tablet take 1 tablet by mouth once daily ON AN EMPTY STOMACH 30 MINUTES PRIOR TO A MEAL - oxyCODONE-acetaminophe n (PERCOCET) 5-325 mg tablet Take 1 tablet by mouth every 6 hours as needed for pain for up to 7 days. - potassium chloride (KLOR-CON 10) 10 mEq tablet Take 1 tablet by mouth two times a day. - DULoxetine (CYMBALTA) 60 mg capsule Take 1 capsule by mouth once daily. - famotidine (PEPCID) 40 mg tablet Take 1 tablet by mouth once daily as needed. - tiZANidine (ZANAFLEX) 4 mg tablet Take 1-2 tablets by mouth every 6 hours as needed. - Back Brace (BACK SUPPORT S/M) [facility] Use as instructed. - lisinopril (ZESTRIL) 20 mg tablet Take 2 tablets by mouth once daily. Adjust dose as directed based on blood pressure readings - LORazepam (ATIVAN) 1 mg tablet Take 2 tablets by mouth at bedtime as needed for up to 120 days. For insomnia - LORazepam (ATIVAN) 2 mg tab Take 1 tablet by mouth at bedtime as needed (insomnia) for up to 180 days. - warfarin (COUMADIN) 5 mg tablet Take 1.5 tablets on Sundays and 2 tablets Thursday through Saturdays - rosuvastatin (CRESTOR) 40 mg tablet Take 1 tablet by mouth once daily. - hydrocortisone 2.5 % cream Seldom - vitamin B complex (B COMPLEX 1 ORAL) - magnesium oxide 400 mg magnesium cap Take 1 capsule by mouth once daily. - SAW PALMETTO ORAL Take 400 mg by mouth twice daily. - coenzyme Q10 (COENZYME Q-10) 100 mg cap capsule Take 400 mg by mouth once daily. - Cyanocobalamin 2,500 mcg subl Dissolve under the tongue twice daily. - calcium, elemental, tab Take 600 mg by mouth twice daily. - multivitamin (SOFYA MULTIVITAMIN) tablet Take 1 tablet by mouth once daily. Meds Comments as of 07/03/2020: Problem List As Of Date 07/30/2023 Noted Resolved BPH with obstruction/lower urinary tract sympto*09/04/2008 Insomnia, unspecified [G47.00] 09/04/2008 Nonspecific abnormal results of liver function *10/05/2008 04/28/2011 Hereditary and idiopathic peripheral neuropathy*10/05/2008 Mixed hyperlipidemia [E78.2] 10/05/2008 Impaired fasting glucose [R73.01] 10/11/2008 Esophageal reflux [K21.9] 11/10/2008 10/11/2014 Lumbago [M54.50] 02/23/2009 HTN (hypertension) [I10] 07/02/2009 Perirectal abscess [K61.1] 08/10/2009 05/28/2010 Left bundle branch block [I44.7] 05/28/2010 05/18/2013 Gait abnormality [R26.9] 04/28/2011 01/23/2023 Lumbar facet arthropathy [M47.816] 05/05/2011 04/13/2012 DDD (degenerative disc disease), lumbar [M51.36]05/05/2011 04/13/2012 Lumbar spondylosis [M47.816] 05/05/2011 04/13/2012 Ureterolithiasis [N20.1] 02 (more content not included)... Normal [facility] PT panel Coag (PPP)on 2023 INR Coag (Bld) [Relative time] 1.9 {INR} [facility] Sh[facility] 07-15-2023 ROBEL Telephone (LEYLA) ALEX BROOKS ( ) 1945 M T Date Time Provider Department 07/15/23 ZENY LAM During your visit today, we recorded the following information about you: Maribel Oden LPN 07/15/2023 3:43 PM Signed Last INR: INR Home Meet 2.4 07/15/2023 Current dose of coumadin is: 5 mg daily. Last date of dose change: 06/12/23. Previous INR (date and result): 06/30/23 2/2 INR Goal 2.0 to 3.0 Additional Clinical Information or narrative: no denies and bledding, bruising, change in diet, missed doses, recent ATB. Provider out of the office. Routing to Provider chief construction inspector ALVERTO Jain Victor H, MD 07/15/2023 4:56 PM Signed Continue Coumadin dose. INR in 2 weeks. Kristina Youssef LPN 07/15/2023 5:08 PM Signed My chart message to pt. Allergies As of Date: 07/15/2023 Noted Allergy Reaction CYCLOBENZAPRINE 08/22/2022 14 - Other: See Comments Comments: Double vision GABAPENTIN 11/24/2022 5 - Intolerance KEFLEX (CEPHALEXIN) 08/21/2014 2 - Rash Date Reviewed: 07/15/2023 Reviewed by: Letitia Espinal, MORIAH - Fully Assessed Reason for Visit: Anticoagulation [8] Primary Visit Diagnosis:correction (current) use of anticoagulants [Z79.01] Other Visit Diagnosis: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) [I26.99] Order(s):PROTHROMBIN TIME [SQPT] Order #: [id number] Prescriptions as of 07/15/2023 - oxyCODONE-acetaminophe n (PERCOCET) 5-325 mg tablet Take 1 tablet by mouth every 6 hours as needed for pain for up to 7 days. - baclofen 2% diclofenac 3% lidocaine 5% topical (CPD) Apply 2 Pump to affected area four times daily. - DULoxetine (CYMBALTA) 30 mg capsule Take 1 capsule by mouth once daily. - tiZANidine (ZANAFLEX) 4 mg tablet Take 1-2 tablets by mouth every 6 hours as needed. - Back Brace (BACK SUPPORT S/M) [facility] Use as instructed. - lisinopril (ZESTRIL) 20 mg tablet Take 2 tablets by mouth once daily. Adjust dose as directed based on blood pressure readings - LORazepam (ATIVAN) 1 mg tablet Take 2 tablets by mouth at bedtime as needed for up to 120 days. For insomnia - LORazepam (ATIVAN) 2 mg tab Take 1 tablet by mouth at bedtime as needed (insomnia) for up to 180 days. - pantoprazole DR (PROTONIX) 40 mg tablet take 1 tablet by mouth once daily ON AN EMPTY STOMACH 30 MINUTES PRIOR TO A MEAL - famotidine (PEPCID) 40 mg tablet Take 1 tablet by mouth once daily as needed. - warfarin (COUMADIN) 5 mg tablet Take 1.5 tablets on Sundays and 2 tablets Thursday through Saturdays - rosuvastatin (CRESTOR) 40 mg tablet Take 1 tablet by mouth once daily. - potassium chloride (KLOR-CON 10) 10 mEq tablet Take 1 tablet by mouth twice daily. - Cholecalciferol, Vitamin D3, 75 mcg (3,000 unit) tab Take by mouth. - hydrocortisone 2.5 % cream Seldom - vitamin B complex (B COMPLEX 1 ORAL) - magnesium oxide 400 mg magnesium cap Take 1 capsule by mouth once daily. - SAW PALMETTO ORAL Take 400 mg by mouth twice daily. - coenzyme Q10 (COENZYME Q-10) 100 mg cap capsule Take 400 mg by mouth once daily. - Cyanocobalamin 2,500 mcg subl Dissolve under the tongue twice daily. - calcium, elemental, tab Take 600 mg by mouth twice daily. - multivitamin (SOFYA MULTIVITAMIN) tablet Take 1 tablet by mouth once daily. Meds Comments as of 07/03/2020: Problem List As Of Date 07/15/2023 Noted Resolved BPH with obstruction/lower urinary tract sympto*09/04/2008 Insomnia, unspecified [G47.00] 09/04/2008 Nonspecific abnormal results of liver function *10/05/2008 04/28/2011 Hereditary and idiopathic peripheral neuropathy*10/05/2008 Mixed hyperlipidemia [E78.2] 10/05/2008 Impaired fasting glucose [R73.01] 10/11/2008 Esophageal reflux [K21.9] 11/10/2008 10/11/2014 Lumbago [M54.50] 02/23/2009 HTN (hypertension) [I10] 07/02/2009 Perirectal abscess [K61.1] 08/10/2009 05/28/2010 Left bundle branch block [I44.7] 05/28/2010 05/18/2013 Gait abnormality [R26.9] 04/28/2011 01/23/2023 Lumbar facet arthropathy [M47.816] 05/05/2011 04/13/2012 DDD (degenerative disc disease), lumbar [M51.36]05/05/2011 04/13/2012 Lumbar spondylosis [M47.816] 05/05/2011 04/13/2012 Ureterolithiasis [N20.1] 05/07/2011 04/13/2012 Degeneration of lumbar or lumbosacral intervert*08/07/2011 04/13/2012 Lumbosacral spondylosis without myelopathy [M47*08/07/2011 10/21/2017 PE (pulmonary embolism) [I26.99] 09/04/2011 04/13/2012 Rectal bleeding [K62.5] 06/30/2012 08/16/2012 History of deep venous thrombosis [Z86.718] 09/07/2012 05/17/2013 Lens replaced by other means [Z96.1] 07/05/2013 04/20/2017 GERD (gastroesophageal reflux disease) [K21.9] 02/17/2014 DDD (degenerative disc disease), lumbar [M51.36]03/08/2014 04/20/2017 Leg cramps [R25.2] 03/31/2014 10/11/2014 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) [I26.99] 05/08/2014 External hemorrhoid [K64.4] 06/19/2014 06/02/2022 Chronic cough [R05.3] 10/04/2015 01 (more content not included)... [facility] PT panel Coag (PPP)on 2023 INR Coag (Bld) [Relative time] 2.4 {INR} [facility] CNPPolly 06-30-2023 CNPN Telephone (FMUPCE) ALEX BROOKS ( ) 1945 M T Date Time Provider Department 06/30/23 ZENY LAM During your visit today, we recorded the following information about you: Maribel Oden LPN 06/30/2023 4:03 PM Signed Last INR: INR Home CoaguChek 2.2 06/30/2023 Current dose of coumadin is: 5 mg daily. Last date of dose change: 06/12/23. Previous INR (date and result): 06/12/23 3.0 INR Goal 2.0 3.0 Additional Clinical Information or narrative: no denies any change in diet, bleeding or bruising, change in appetitive, no missed doses. okay to leave a detailed message for pt. ALVERTO Jain Rosa, APRN.CNP 06/30/2023 4:07 PM Signed INR looks good, continue with current dose of coumadin and repeat INR in 2 weeks since we started the Cymbalta this week. Maribel Mccoy MA 06/30/2023 4:20 PM Signed Pt notified and verbalizes understanding. Tracker updated Maribel Mccoy MA Allergies As of Date: 06/30/2023 Noted Allergy Reaction CYCLOBENZAPRINE 08/22/2022 14 - Other: See Comments Comments: Double vision GABAPENTIN 11/24/2022 5 - Intolerance KEFLEX (CEPHALEXIN) 08/21/2014 2 - Rash Date Reviewed: 06/29/2023 Reviewed by: Zeny Lam APRN.DELIVERY CLERK - Fully Assessed Reason for Visit: Anticoagulation [8] Order(s):PROTHROMBIN TIME [SQPT] Order #: [id number] Prescriptions as of 06/30/2023 - oxyCODONE-acetaminophe n (PERCOCET) 5-325 mg tablet Take 1 tablet by mouth every 6 hours as needed for pain for up to 7 days. - baclofen 2% diclofenac 3% lidocaine 5% topical (CPD) Apply 2 Pump to affected area four times daily. - DULoxetine (CYMBALTA) 30 mg capsule Take 1 capsule by mouth once daily. - tiZANidine (ZANAFLEX) 4 mg tablet Take 1-2 tablets by mouth every 6 hours as needed. - Back Brace (BACK SUPPORT S/M) [facility] Use as instructed. - lisinopril (ZESTRIL) 20 mg tablet Take 2 tablets by mouth once daily. Adjust dose as directed based on blood pressure readings - LORazepam (ATIVAN) 1 mg tablet Take 2 tablets by mouth at bedtime as needed for up to 120 days. For insomnia - LORazepam (ATIVAN) 2 mg tab Take 1 tablet by mouth at bedtime as needed (insomnia) for up to 180 days. - pantoprazole DR (PROTONIX) 40 mg tablet take 1 tablet by mouth once daily ON AN EMPTY STOMACH 30 MINUTES PRIOR TO A MEAL - famotidine (PEPCID) 40 mg tablet Take 1 tablet by mouth once daily as needed. - warfarin (COUMADIN) 5 mg tablet Take 1.5 tablets on Sundays and 2 tablets Thursday through Saturdays - rosuvastatin (CRESTOR) 40 mg tablet Take 1 tablet by mouth once daily. - potassium chloride (KLOR-CON 10) 10 mEq tablet Take 1 tablet by mouth twice daily. - Cholecalciferol, Vitamin D3, 75 mcg (3,000 unit) tab Take by mouth. - hydrocortisone 2.5 % cream Seldom - vitamin B complex (B COMPLEX 1 ORAL) - magnesium oxide 400 mg magnesium cap Take 1 capsule by mouth once daily. - SAW PALMETTO ORAL Take 400 mg by mouth twice daily. - coenzyme Q10 (COENZYME Q-10) 100 mg cap capsule Take 400 mg by mouth once daily. - Cyanocobalamin 2,500 mcg subl Dissolve under the tongue twice daily. - calcium, elemental, tab Take 600 mg by mouth twice daily. - multivitamin (SOFYA MULTIVITAMIN) tablet Take 1 tablet by mouth once daily. Meds Comments as of 07/03/2020: Problem List As Of Date 06/30/2023 Noted Resolved BPH with obstruction/lower urinary tract sympto*09/04/2008 Insomnia, unspecified [G47.00] 09/04/2008 Nonspecific abnormal results of liver function *10/05/2008 04/28/2011 Hereditary and idiopathic peripheral neuropathy*10/05/2008 Mixed hyperlipidemia [E78.2] 10/05/2008 Impaired fasting glucose [R73.01] 10/11/2008 Esophageal reflux [K21.9] 11/10/2008 10/11/2014 Lumbago [M54.50] 02/23/2009 HTN (hypertension) [I10] 07/02/2009 Perirectal abscess [K61.1] 08/10/2009 05/28/2010 Left bundle branch block [I44.7] 05/28/2010 05/18/2013 Gait abnormality [R26.9] 04/28/2011 01/23/2023 Lumbar facet arthropathy [M47.816] 05/05/2011 04/13/2012 DDD (degenerative disc disease), lumbar [M51.36]05/05/2011 04/13/2012 Lumbar spondylosis [M47.816] 05/05/2011 04/13/2012 Ureterolithiasis [N20.1] 05/07/2011 04/13/2012 Degeneration of lumbar or lumbosacral intervert*08/07/2011 04/13/2012 Lumbosacral spondylosis without myelopathy [M47*08/07/2011 10/21/2017 PE (pulmonary embolism) [I26.99] 09/04/2011 04/13/2012 Rectal bleeding [K62.5] 06/30/2012 08/16/2012 History of deep venous thrombosis [Z86.718] 09/07/2012 05/17/2013 Lens replaced by other means [Z96.1] 07/05/2013 04/20/2017 GERD (gastroesophageal reflux disease) [K21.9] 02/17/2014 DDD (degenerative disc disease), lumbar [M51.36]03/08/2014 04/20/2017 Leg cramps [R25.2] 03/31/2014 10/11/2014 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) [I26.99] 05/08/2014 External hemorrhoid [K64.4] 06/19/2014 06/02/2022 Chronic cough [R05.3] 10/04/2015 05/05/2016 (more content not included)... Normal [facility] PT panel Coag (PPP)on 2023 INR Coag (Bld) [Relative time] 2.2 {INR} [facility] PT panel Coag (PPP)on 2023 INR Coag (Bld) [Relative time] 2.9 {INR} [facility] PT panel Coag (PPP)on 2023 INR Coag (Bld) [Relative time] 4.5 {INR} [facility] MR Lumbar spine WO contrasto n 05-29-2023 Radiology Result ACTIONABLE Abnormal [facility] PT panel Coag (PPP)on 2023 INR Coag (Bld) [Relative time] 2.6 {INR} [facility] KAYLANon 05-15-2023 CNPN Telephone (FMUPCE) TODDALEX Borjas ( ) 1945 M CHT Date Time Provider Department 05/15/23 ZENY LAM [facility] During your visit today, we recorded the following information about you: Maribel Oden LPN 05/15/2023 8:26 AM Signed Pt called and he went to ER due to fall. Pt reports has severe pain and was given Percocet and this helps but he is not going to have enough to last till Thursday apt. Pt reports he is taking this every 6 hours. Pt asking if you are able to maddie 4 or 5 in till his apt on Thursday and then this can be discussed. Please advise pt. Okay to leave a detailed message. ALVERTO Jain Rosa, APRN.DELIVERY CLERK 05/15/2023 9:02 AM Signed We have previously prescribed him percocet so yes, we can send in the prescription. I sent this in for him. Please let him know. Tammy Wang MA 05/15/2023 11:39 AM Signed Pt notified and verbalized understanding. Tammy Wang MA Allergies As of Date: 05/15/2023 Noted Allergy Reaction CYCLOBENZAPRINE 08/22/2022 14 - Other: See Comments Comments: Double vision GABAPENTIN 11/24/2022 5 - Intolerance KEFLEX (CEPHALEXIN) 08/21/2014 2 - Rash Date Reviewed: 04/20/2023 Reviewed by: Susana Kang RN - Fully Assessed Reason for Visit: medication issue [Other] Visit Diagnosis:Chronic low back pain without sciatica, unspecified back pain laterality [M54.50, G89.29] Order(s):[START ON 05/16/2023] oxyCODONE-acetaminophe n (PERCOCET) 5-325 mg tabletTake 1 tablet by mouth every 6 hours as needed for pain for up to 7 days. Do not start before May 16, 2023.Disp: 28 tabletRfl: 0 Prescriptions as of 05/15/2023 - oxyCODONE-acetaminophe n (PERCOCET) 5-325 mg tablet Take 1 tablet by mouth every 6 hours as needed for pain for up to 7 days. Do not start before May 16, 2023. - lisinopril (ZESTRIL) 20 mg tablet Take 2 tablets by mouth once daily. Adjust dose as directed based on blood pressure readings - polyethylene glycol 3350 17 gram/dose powder Take 1 Cap-Full by mouth once daily as needed for constipation. Dissolve dose in 4 - 8 ounces of liquid and take as directed. - LORazepam (ATIVAN) 1 mg tablet Take 2 tablets by mouth at bedtime as needed for up to 120 days. For insomnia - LORazepam (ATIVAN) 2 mg tab Take 1 tablet by mouth at bedtime as needed (insomnia) for up to 180 days. - pantoprazole DR (PROTONIX) 40 mg tablet take 1 tablet by mouth once daily ON AN EMPTY STOMACH 30 MINUTES PRIOR TO A MEAL - famotidine (PEPCID) 40 mg tablet Take 1 tablet by mouth once daily as needed. - warfarin (COUMADIN) 5 mg tablet Take 1.5 tablets on Sundays and 2 tablets Thursday through Saturdays - rosuvastatin (CRESTOR) 40 mg tablet Take 1 tablet by mouth once daily. - potassium chloride (KLOR-CON 10) 10 mEq tablet Take 1 tablet by mouth twice daily. - ascorbic acid (VITAMIN C ORAL) Take 2,000 Units by mouth once daily. - Cholecalciferol, Vitamin D3, 75 mcg (3,000 unit) tab Take by mouth. - aspirin 81 mg cap Take by mouth. - hydrocortisone 2.5 % cream Seldom - vitamin B complex (B COMPLEX 1 ORAL) - magnesium oxide 400 mg magnesium cap Take 1 capsule by mouth once daily. - SAW PALMETTO ORAL Take 400 mg by mouth twice daily. - coenzyme Q10 (COENZYME Q-10) 100 mg cap capsule Take 400 mg by mouth once daily. - Cyanocobalamin 2,500 mcg subl Dissolve under the tongue twice daily. - calcium, elemental, tab Take 600 mg by mouth twice daily. - multivitamin (SOFYA MULTIVITAMIN) tablet Take 1 tablet by mouth once daily. Meds Comments as of 07/03/2020: Problem List As Of Date 05/15/2023 Noted Resolved BPH with obstruction/lower urinary tract sympto*09/04/2008 Insomnia, unspecified [G47.00] 09/04/2008 Nonspecific abnormal results of liver function *10/05/2008 04/28/2011 Hereditary and idiopathic peripheral neuropathy*10/05/2008 Mixed hyperlipidemia [E78.2] 10/05/2008 Impaired fasting glucose [R73.01] 10/11/2008 Esophageal reflux [K21.9] 11/10/2008 10/11/2014 Lumbago [M54.50] 02/23/2009 HTN (hypertension) [I10] 07/02/2009 Perirectal abscess [K61.1] 08/10/2009 05/28/2010 Left bundle branch block [I44.7] 05/28/2010 05/18/2013 Gait abnormality [R26.9] 04/28/2011 01/23/2023 Lumbar facet arthropathy [M47.816] 05/05/2011 04/13/2012 DDD (degenerative disc disease), lumbar [M51.36]05/05/2011 04/13/2012 Lumbar spondylosis [M47.816] 05/05/2011 04/13/2012 Ureterolithiasis [N20.1] 05/07/2011 04/13/2012 Degeneration of lumbar or lumbosacral intervert*08/07/2011 04/13/2012 Lumbosacral spondylosis without myelopathy [M47*08/07/2011 10/21/2017 PE (pulmonary embolism) [I26.99] 09/04/2011 04/13/2012 Rectal bleeding [K62.5] 06/30/2012 08/16/2012 History of deep venous thrombosis [Z86.718] 09/07/2012 05/17/2013 Lens replaced by other means [Z96.1] 07/05/2013 04/20/2017 GERD (gastroesophageal reflux disease) [K21.9] 11 (more content not included)... Normal [facility] Brain/Head without Contrasto n 05-14-2023 Brain/Head without Contrast [facility] Imaging Services [address] [place] [address] Brain/Head without Contrast MR#: [id number] Acct: [id number] Name: ALEX BROOKS Rep #: [id number] : 1945 M 77 From: Gustavo ayala MD PCP: Dr. Franc Hills MD Status: REG ER Study: Brain/Head without Contrast Date of Exam: 11/27 Exam# [id number] Ordering Dr: Mckinley Varner GRAIN SACKER-C [id number] STUDY: CT BRAIN WITHOUT CONTRAST REASON FOR EXAM: Male, 77 years old. Head injury RADIATION DOSAGE (If Supplied By Facility): CTDIvol = ( 44.99 ) mGy, DLP = ( 829.85 ) mGycm TECHNIQUE: Transaxial CT imaging of the brain was performed without administration of intravenous contrast material. Individualized dose optimization techniques were used for this CT. COMPARISON: Comparison is made with prior study dated September 28, 2021. FINDINGS: Normal soft tissue structures. Normal calvarium. There is mild cerebral atrophy with widening of the extra-axial spaces and ventricular dilatation. There are areas of decreased attenuation within the white matter tracts of the supratentorial brain, consistent with microvascular disease changes. Stable focal area of the encephalomalacia in the base of the left frontal lobe. Normal basal ganglia and thalami. Normal brainstem. Normal cerebellum. There is no intracranial hemorrhage. There are no findings of an acute ischemic infarction. Atherosclerotic calcification of the vertebral arteries and cavernous portions of the internal carotid arteries bilaterally. Normal visualized paranasal sinuses. CT/Brain/Head without Contrast IMPRESSION: Chronic involutional changes of the brain. Stable focal area of encephalomalacia involving the inferior aspect of the left frontal lobe. Electronically Signed: Gustavo Pruett MD at 13:14 EST , CC: CHRISTAL Varner; Dr. Franc Hills MD Ear Mold Laboratory Technician: Signed Normal [facility] Elbow min 3 Viewson 05-14-19 Elbow min 3 Views [facility] Imaging Services [address] [place] [address] Elbow min 3 Views MR#: [id number] Acct: [id number] Name: ALEX BROOKS Rep #: [id number] : 1945 M 77 From: Gustavo ayala MD PCP: Dr. Franc Hills MD Status: [facility] ER Study: Elbow min 3 Views Date of Exam: 05/14/23 Exam# [id number] Ordering Dr: Mckinley Varner [id number] STUDY: X-RAY - LEFT ELBOW REASON FOR EXAM: Male, 77 years old. Left elbow pain following a fall. TECHNIQUE: 3 view(s) of the elbow. COMPARISON: None. FINDINGS: Normal visualized humerus, radius and ulna. Normal radiocapitellar and ulnotrochlear articulations. The soft tissue structures are unremarkable. RAD/Elbow min 3 Views IMPRESSION: Normal x-ray examination of the elbow. Electronically Signed: Gustavo Pruett MD at 13:39 EST , CC: CHRISTAL Varner; Dr. Franc Hills MD Ear Mold Laboratory Technician: Signed Normal [facility] Emergency Department Summary on 05-14-2023 Emergency Department Summary [facility] Medical Records Department [address] [place] [address] Emergency Department Summary 05/14/23 MR#: [id number] Acct: [id number] Name: ALEX BROOKS Rep #: [id number] : 1945 77 From: Lisandro Mora MD PCP: Dr. Franc Hills MD Status:REG ER Location: ED HPI History of Present Illness Chief Complaint: Fall Narrative Narrative: Patient is a 77-year-old male with history of pulmonary embolism on Coumadin, hypertension who presents to the emergency department after mechanical fall that occurred last evening. Patient dates he was cooking, slipped on some cooking oil fell on his butt, hit his head. He called his PCP, secondary to him being on Coumadin, striking his head as well as having significant back pain they told to come to the emergency department for imaging. Patient does have a prescription of Percocet at home, did take this with no little relief. He is here for evaluation. [facility] Medical History Alcohol use Asthma Back pain Cardiology follow-up encounter Essential hypertension Former smoker GERD (gastroesophageal reflux disease) History of echocardiogram History of edema History of pain when walking History of stress test Hoarseness Hyperlipidemia Hypertension Injury of head and neck Kidney stone Left bundle branch block Lumbago-sciatica due to displacement of lumbar intervertebral disc Neuropathy Osteoarthritis Pulmonary embolism Wears glasses Home Medications lisinopril 20 mg-hydrochlorothiazide 12.5 mg tablet 2 tab PO DAILY 11/11/17 [History Last Taken 03/23/22] ascorbic acid (vitamin C) 1,000 mg tablet 1 g PO DAILY 12/16/18 [History Last Taken Unknown] coenzyme Q10 200 mg capsule 400 mg PO DAILY 12/16/18 [History Last Taken Unknown] cyanocobalamin (vitamin B-12) 2,500 mcg sublingual lozenge 2,500 mcg sublingual BID 12/16/18 [History Last Taken Unknown] fluticasone propionate 50 mcg/actuation nasal spray,suspension (Allergy Relief (fluticasone)) 1 spray intranasal DAILY 12/16/18 [History Last Taken Unknown] magnesium oxide 400 mg PO BID 12/16/18 [History Last Taken Unknown] multivitamin 2 tab PO DAILY 12/16/18 [History Last Taken Unknown] rosuvastatin 10 mg tablet (Crestor) 40 mg PO QHS 12/16/18 [History Last Taken Unknown] saw palmetto 450 mg capsule 450 mg PO BID 12/16/18 [History Last Taken Unknown] aspirin 81 mg tablet 81 mg PO DAILY 01/10/21 [History Last Taken Unknown] potassium chloride 10 mEq capsule,extended release 10 meq PO BID 01/10/21 [History Last Taken Unknown] warfarin 10 mg tablet 10 mg PO DAILY 01/10/21 [History Last Taken 03/18/22] famotidine 40 mg tablet 40 mg PO PRN PRN GERD 03/20/22 [History Last Taken Unknown] lorazepam 1 mg tablet 2 mg PO QHS PRN PRN Insomnia 03/20/22 [History Last Taken Unknown] oxycodone-acetaminophe n 5 mg-325 mg tablet 1 tab PO PRN PRN Pain 03/20/22 [History Last Taken Unknown] oxycodone-acetaminophe n 5 mg-325 mg tablet (Percocet) 1 tab PO Q8H PRN pain 3 days #10 tabs 05/14/23 [Rx Last Taken Unknown] pantoprazole 40 mg granules delayed-release for susp in packet (Protonix) 40 mg PO DAILY 05/14/23 [History Last Taken Unknown] Allergy/AdvReac Type Severity Reaction Status Date / Time cephalexin [From Keflex] Allergy Intermediate Rash Verified 05/14/23 12:04 cyclobenzaprine AdvReac Mild PT UNABLE Verified 05/14/23 12:08 TO RESPOND-NEEDS F/U gabapentin AdvReac Mild Other Verified 05/14/23 12:04 Family History Father , Age 74 CAD (coronary artery disease) Myocardial infarction Mother , age 104 No problems noted. Surgical History H/O colonoscopy with polypectomy History of hand surgery Hx of carotid angioplasty RFA of lumbar spine S/P IVC filter ( 2011) Social History Smoking Status: Former smoker pack-years: 15 ROS ROS ED ROS Narrative Constitutional: Negative for fever, chills, weight loss, weakness Eyes: Negative for vision loss, vision change, double vision ENT: Negative for any sore throat, ear pain, congestion Cardiovascular: Negative for any chest pain, tightness, palpitations Respiratory: Negative for any cough, sputum production, hemoptysis, dyspnea, dyspnea on exertion, orthopnea Gastrointestinal: Negative for any abdominal pain, nausea, vomiting, diarrhea, constipation, blood in stool, blood in vomit : Negative for any urinary frequency, dysuria, retention, blood in urine Muscle skeletal: Negative for any myalgias, arthralgias, neck pain. Positive lower back pain, left elbow pain Neurological: Negative for any headache, syncope, paresthesias, dizziness Skin: Negati (more content not included)... Normal [facility] Spine Lumbar without Contras ton 05-14-2023 Spine Lumbar without Contrast [facility] Services [address] [place] [address] Spine Lumbar without Contrast MR#: [id number] Acct: [id number] Name: ALEX BROOKS Rep #: [id number] : 1945 M 77 From: Gustavo ayala MD PCP: Dr. Franc Hills MD Status: REG ER Study: Spine Lumbar without Contrast Date of Exam: Exam# [id number] Ordering Dr: Mckinley Varner GRAIN SACKER-C [id number] STUDY: CT LUMBAR SPINE WITHOUT CONTRAST REASON FOR EXAM: Male, 77 years old. Lumbar injury RADIATION DOSAGE (If Supplied By Facility): CTDIvol = ( 13.87 ) mGy, DLP = ( 520.98 ) mGycm TECHNIQUE: The patient was scanned in a multi detector CT scanner. High resolution transaxial imaging was performed. Images were obtained from L1 to S1 vertebrae. Sagittal and coronal images were reconstructed. Individualized dose optimization techniques were used for this CT. COMPARISON: None FINDINGS: Normal lumbar lordosis. There is no substantial scoliosis. Comparison loss of height of the superior endplate of the L1 vertebrae. This may represent a compression fracture. L1-2: 10% loss of height of the superior endplate of the L1 vertebrae. A compression fracture should be ruled out. L2-3: Normal endplates. Normal disc height and morphology. Normal bilateral facet joints. Normal central canal and bilateral lateral recesses. Normal bilateral intervertebral neural foramina. L3-4: Mild degree of anterior spondylolisthesis. Mild degree of diffuse posterior disc bulge causing mild degree of bilateral neural foraminal stenosis. Hypertrophy of the ligamentum flavum causing mild degree of central canal stenosis. L4-5: Moderate degree of diffuse posterior disc bulge. Hypertrophy of the facet joints causing bilateral neural foraminal stenosis. L5-S1: Normal endplates. Normal disc height and morphology. Normal bilateral facet joints. Normal central canal and bilateral lateral recesses. Normal bilateral intervertebral neural foramina. Atherosclerotic calcification of the aorta and the iliac arteries. CT/Spine Lumbar without Contrast IMPRESSION: Comparison loss of height of the superior endplate of the L1 vertebrae suggestive of compression fracture. Multilevel disc space narrowing with a diffuse posterior disc bulge and stenosis. Electronically Signed: Gustavo Pruett MD at 13:22 EST , CC: CHRISTAL Varner; Dr. Franc Hills MD Ear Mold Laboratory Technician: Signed Normal [facility] PT panel Coag (PPP)on 2022 INR Coag (Bld) [Relative time] 2.3 {INR} 2.0 - 3.0 [facility] Shayan 02-04-2023 CNPN Telephone (FMUPCE) ALEX BROOKS ( ) 1945 M [facility] Date Time Provider Department 02/04/23 ZENY LAM During your visit today, we recorded the following information about you: Maribel Oden LPN 02/04/2023 11:31 AM Signed Last INR: INR Home Meet 2.6 02/04/2023 Current dose of coumadin is: 10 mg on Tues, Fri, Thu and then 7.5 all other days. Last date of dose change: 01/14/23. Previous INR (date and result): 01/22/23, 2.5 Additional Clinical Information or narrative: yes: Pt denies any diet changes, no alcholol, bleeding, bruising, ATB. No missed doses. Please advise pt back with a detailed message left on his answer machine. Please do not ask to have pt call back. Zeny Palomino LPN, APRN.DELIVERY CLERK 02/04/2023 11:53 AM Signed Records show INR goal is 2-3 and we have stayed in that range so okay to continue current dose and since this has been stable the last several checks it is okay to repeat the INR in 4 weeks this time. Angi Chua LPN 02/04/2023 1:16 PM Signed Patient would like to continue coming in every 2 weeks. States that a lot changes in 4 weeks and he does not feel comfortable going that long. Patient is scheduled for 2 weeks out. 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 - famotidine (PEPCID) 40 mg tablet Take 1 tablet by mouth once daily as needed. - warfarin (COUMADIN) 5 mg tablet Take 1.5 tablets on Sundays and 2 tablets Thursday through Saturdays - rosuvastatin (CRESTOR) 40 mg tablet Take 1 tablet by mouth once daily. - oxyCODONE-acetaminophe n (PERCOCET) 5-325 mg tablet Take 1 tablet by mouth every 4 hours as needed for pain for up to 7 days. - LORazepam (ATIVAN) 2 mg tab Take 1 tablet by mouth at bedtime as needed (insomnia) for up to 180 days. - potassium chloride (KLOR-CON 10) 10 mEq tablet Take 1 tablet by mouth twice daily. - ascorbic acid (VITAMIN C ORAL) Take 2,000 Units by mouth once daily. - Cholecalciferol, Vitamin D3, 75 mcg (3,000 unit) tab Take by mouth. - aspirin 81 mg cap Take by mouth. - hydrocortisone 2.5 % cream Seldom - vitamin B complex (B COMPLEX 1 ORAL) - magnesium oxide 400 mg magnesium cap Take 1 capsule by mouth once daily. - SAW PALMETTO ORAL Take 400 mg by mouth twice daily. - coenzyme Q10 (COENZYME Q-10) 100 mg cap capsule Take 400 mg by mouth once daily. - Cyanocobalamin 2,500 mcg subl Dissolve under the tongue twice daily. - calcium, elemental, tab Take 600 mg by mouth twice daily. - multivitamin (SOFYA MULTIVITAMIN) tablet Take 1 tablet by mouth once daily. 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 Insomnia, unspecified [G47.00] 09/04/2008 Nonspecific abnormal results of liver function *10/05/2008 04/28/2011 Hereditary and idiopathic peripheral neuropathy*10/05/2008 Mixed hyperlipidemia [E78.2] 10/05/2008 Impaired fasting glucose [R73.01] 10/11/2008 Esophageal reflux [K21.9] 11/10/2008 10/11/2014 Lumbago [M54.50] 02/23/2009 HTN (hypertension) [I10] 07/02/2009 Perirectal abscess [K61.1] 08/10/2009 05/28/2010 Left bundle branch block [I44.7] 05/28/2010 05/18/2013 Gait abnormality [R26.9] 04/28/2011 01/23/2023 Lumbar facet arthropathy [M47.816] 05/05/2011 04/13/2012 DDD (degenerative disc disease), lumbar [M51.36]05/05/2011 04/13/2012 Lumbar spondylosis [M47.816] 05/05/2011 04/13/2012 Ureterolithiasis [N20.1] 05/07/2011 04/13/2012 Degeneration of lumbar or lumbosacral intervert*08/07/2011 04/13/2012 Lumbosacral spondylosis without myelopathy [M47*08/07/2011 10/21/2017 PE (pulmonary embolism) [I26.99] 09/04/2011 04/13/2012 Rectal bleeding [K62.5] 06/30/2012 08/16/2012 History of deep venous thrombosis [Z86.718] 09/07/2012 05/17/2013 Lens replaced by other means [Z96.1] 07/05/2013 04/20/2017 GERD (gastroesophageal reflux disease) [K21.9] 02/17/2014 DDD (degenerative disc disease), lumbar [M51.36]03/08/2014 04/20/2017 Leg cramps [R25.2] 03/31/2014 10/11/2014 Recurr (more content not included)... [facility] PT panel Coag (PPP)on 2022 INR Coag (Bld) [Relative time] 2.6 {INR} [facility] PT panel Coag (PPP)on 2022 INR Coag (Bld) [Relative time] 2.2 {INR} [facility] PT panel Coag (PPP)on 2022 INR Coag (Bld) [Relative time] 5.3 (ext) 2.0 - 3.0 [facility] PT panel Coag (PPP)on 2022 INR Coag (Bld) [Relative time] 3.3 {INR} [facility] PT panel Coag (PPP)on 2022 INR Coag (Bld) [Relative time] 2.1 {INR} [facility] PT panel Coag (PPP)on 2022 INR Coag (Bld) [Relative time] 2.4 (ext) 2.0 - 3.0 [facility] PT panel Coag (PPP)on 2022 INR Coag (Bld) [Relative time] 1.0 {INR} Abnormal 2.0 - 3.0 [facility] PT panel Coag (PPP)on 2022 INR Coag (Bld) [Relative time] 3.7 {INR} [facility] PT panel Coag (PPP)on 2022 INR Coag (Bld) [Relative time] 2.1 EXT 2.5 - 3.5 [facility] PT panel Coag (PPP)on 2022 INR Coag (Bld) [Relative time] 2.4 {INR} [facility] PT panel Coag (PPP)on 2022 INR Coag (Bld) [Relative time] 1.0 {INR} [facility] PT panel Coag (PPP)on 2021 INR Coag (Bld) [Relative time] 3.2 {INR} Abnormal 2.0 - 3.0 [facility] Laboratory - Coagulationon 1 05-25-2021 INR Coag (Bld) [Relative time] 1.1 {INR} [facility] Work Phone: Comment on above: Critical Value > 4.0 Whole blood prothrombin time on 03-24-2022 PT Coag (Bld) [Time] 13.8 s 11.7-14.9 [facility] Work Phone: INR (POC)on 02-18-2022 INR Coag (PPP) [Relative time] 2.6 {INR} High 0.8 - 1.2 [facility] Internal Quality Check Acceptable [facility] INRon 01-08-2022 INR Coag (Bld) [Relative time] 1.8 {INR} Abnormal 2.0 - 3.0 [facility] Absolute lymphocyte counton 09-28-2021 Lymphocytes Auto (Unsp spec) [#/Vol] 2.86 10*3/uL 0.83-4.51 [facility] Work Phone: Basophil percentageon 2021 Basophils/100 WBC (Bld) 0.7 % 0-1 [facility] Work Phone: Chloride [Moles/Vol] 106 mmol/L 98-107 [facility] Work Phone: Eosinophils/100 WBC (Bld) 5.2 % 0-5 [facility] Work Phone: Glucose [Mass/Vol] 99 mg/dL 74-106 [facility] Work Phone: Neutrophils (Bld) [#/Vol] 3.0 10*3/uL 2.0-7.7 [facility] Work Phone: Neutrophils/100 WBC (Bld) 41.2 % 47-70 [facility] Work Phone: Potassium [Moles/Vol] 3.8 mmol/L 3.5-5.1 [facility] Work Phone: Sodium [Moles/Vol] 138 mmol/L 136-145 [facility] Work Phone: WBC (Bld) [#/Vol] 7.3 10*3/uL 4.4-11.0 [facility] Work Phone: Blood erythrocytes count (nu mber/volume)on 09-28-2021 RBC (Bld) [#/Vol] 4.91 10*6/uL 4.6-6.2 [facility] Work Phone: Blood hemoglobin measurement (mass/volume)on 09-28-2021 Hemoglobin (Bld) [Mass/Vol] 15.5 g/dL 13.0-16.5 [facility] Work Phone: Blood lymphocytes/100 leukoc yteson 09-28-2021 Lymphocytes/100 WBC (Bld) 39.1 % 19-41 [facility] Work Phone: Blood monocytes/100 leukocyt eson 09-28-2021 Monocytes/100 WBC (Bld) 13.7 % 0-10 [facility] Work Phone: Blood platelet mean volumeon 09-28-2021 Platelet mean volume (Bld) [Entitic vol] 9.6 fL 6.2-12.0 [facility] Work Phone: Determination of erythrocyte mean corpuscular volume (MCV)on 09-28-2021 MCV (RBC) [Entitic vol] 95.7 fL 80-94 [facility] Work Phone: Hematocrit Auto (Bld) [Volum e fraction]on 09-28-2021 Hematocrit (Bld) [Volume fraction] 47.0 % 40-54 [facility] Work Phone: INR in Blood by Coagulation assayon 09-28-2021 INR Coag (Bld) [Relative time] 1.7 {INR} [facility] Work Phone: Laboratory - Chemistry and C hemistry - challengeon 09-28-2021 CO2 [Moles/Vol] 26.0 mmol/L 21.0-32.0 [facility] Work Phone: Urea nitrogen/Creatinine [Mass ratio] 16.4 mg/mg 10-20 [facility] Work Phone: Laboratory - Coagulationon 0 09-28-2021 PT Coag (PPP) [Time] 19.4 s 11.7-14.9 [facility] Work Phone: Laboratory - Hematology and Cell countson 09-28-2021 Erythrocyte distribution width (RBC) [Entitic vol] 49.6 fL 35.1-43.9 [facility] Work Phone: Erythrocyte distribution width (RBC) [Ratio] 14.0 % 11.6-14.6 [facility] Work Phone: Immature granulocytes/100 WBC (Bld) 0.100 % 0.0-0.9 [facility] Work Phone: Comment on above: IG% - Immature Granu locytes (promyelocytes, myelocytes and metamyelocytes) > 1% indicates that a LEFT SHIFT is Present. MCH (RBC) [Entitic mass] 31.6 pg 27.0-32.0 [facility] Work Phone: Nucleated RBC/100 WBC (Bld) [Ratio] 0 % 0-5 [facility] Work Phone: MCHC Auto (RBC) [Mass/Vol]on 09-28-2021 MCHC (RBC) [Mass/Vol] 33.0 g/dL 32-36 [facility] Work Phone: No Panel Informationon 09-28 Estimated Creatinine Clearance Calc 80.94 ml/min [facility] Work Phone: Estimated GFR (MDRD) Amer 112 mL/min >60 [facility] Work Phone: Comment on above: GFR Calc Estimated GFR (MDRD) Non-Af Amer 92 mL/min >60 [facility] Work Phone: Comment on above: Non- GFR Calc Platelets bldon 09-28-2021 Platelets (Bld) [#/Vol] 201 10*3/uL 150-450 [facility] Work Phone: Serum or plasma calcium wilmar urement (mass/volume)on 09-28-2021 Calcium [Mass/Vol] 9.3 mg/dL 8.5-10.1 [facility] Work Phone: Serum or plasma creatinine m easurement (mass/volume)on 09-28-2021 Creatinine [Mass/Vol] 0.85 mg/dL 0.70-1.30 [facility] Work Phone: Comment on above: The validity of the calculated GFR & GFRAA in patients over 70 years has not been determined. Clinical correlation is essential. Serum or plasma urea nitroge n measurement (mass/volume)on 09-28-2021 Urea nitrogen [Mass/Vol] 14 mg/dL 7-18 [facility] Work Phone: Thin prep Papanicolaou smear with manual screeningon 09-28-2021 Thin prep Papanicolaou smear with manual screening 6 5-15 [facility] Work Phone: PT panel Coag (PPP)on 2021 INR Coag (Bld) [Relative time] 2.2 {INR} 2 - 3 [facility] PT panel Coag (PPP)on 2021 INR Coag (Bld) [Relative time] 2.1(EXT) 2.0 - 3.0 [facility] PT panel Coag (PPP)on 2021 INR Coag (Bld) [Relative time] 1.7 {INR} [facility] XR Wrist - right PA and Late ral and Obliqueon 01-13-2020 IMPRESSION: Tiny accessory bone versus tiny avulsion fracture along the radial styloid. [facility] Laboratory Technician: PSCB Transcribe Date/Time: Jan 13 2020 10:30A Dictated by : ELSY BARNARD MD This examination was interpreted and the report reviewed and electronically signed by: ELSY BARNARD MD on Jan 13 2020 10:32AM [facility] DIVISION OF RADIOLOGY * * *Final Report* * * DATE OF EXAM: Jan 13 2020 10:21AM WOX [id number] - XR WRIST 3V PA/LAT/OBL RT / PROCEDURE REASON: Wrist injuries, right, initial encounter * * * * Physician Interpretation * * * * EXAM TITLE: XR WRIST 3V PA/LAT/OBL RT EXAM DATE/TIME: 01/13/2020 10:21 AM COMPARISON: None. CLINICAL INDICATION/HISTORY: Fall. TECHNIQUE: PA, lateral, and oblique views of right are presented. FINDINGS: Tiny accessory bone versus tiny avulsion fracture seen along the radial styloid. No subluxation seen. The joint spaces are maintained. The mineralization of the bones is normal. There is no significant soft tissue swelling. DIVISION OF RADIOLOGY Provider, [facility] - 01/13/2020 * * *Final Report* * * DATE OF EXAM: Jan 13 2020 10:21AM WOX [id number] - XR WRIST 3V PA/LAT/OBL RT / PROCEDURE REASON: Wrist injuries, right, initial encounter * * * * Physician Interpretation * * * * EXAM TITLE: XR WRIST 3V PA/LAT/OBL RT EXAM DATE/TIME: 01/13/2020 10:21 AM COMPARISON: None. CLINICAL INDICATION/HISTORY: Fall. TECHNIQUE: PA, lateral, and oblique views of right are presented. FINDINGS: Tiny accessory bone versus tiny avulsion fracture seen along the radial styloid. No subluxation seen. The joint spaces are maintained. The mineralization of the bones is normal. There is no significant soft tissue swelling. IMPRESSION IMPRESSION: Tiny accessory bone versus tiny avulsion fracture along the radial styloid. [facility] Laboratory Technician: PSCB Transcribe Date/Time: Jan 13 2020 10:30A Dictated by : ELSY BARNARD MD This examination was interpreted and the report reviewed and electronically signed by: ELSY BARNARD MD on Jan 13 2020 10:32AM EST [facility] Radiology Study observation (narrative) [facility] XR Wrist - right PA and Late ral and ObliqueOrdered By: Ccf Provider on 01-13-2020 [facility] No Panel Information [facility] Vital Signs Date Time Vital Sign Value Performing Clinician Facility 11-15-2024 13:48-0400 Diastolic blood pressure 68 mm[Hg] Zeny Genaro AUTISTIC TEACHER.DELIVERY CLERK Work Phone: [facility] 11-15-2024 13:48-0400 Systolic blood pressure 128 mm[Hg] Zeny Genaro AUTISTIC TEACHER.DELIVERY CLERK Work Phone: [facility] 11-15-2024 12:43-0400 Body mass index (BMI) [Ratio] 27.59 kg/m2 Zeny Genaro AUTISTIC TEACHER.DELIVERY CLERK Work Phone: [facility] 11-15-2024 12:43-0400 Body weight 89.4 kg Zeny Genaro AUTISTIC TEACHER.DELIVERY CLERK Work Phone: [facility] 11-15-2024 12:43-0400 Heart rate 80 /min Zeny Genaro AUTISTIC TEACHER.DELIVERY CLERK Work Phone: [facility] 11-15-2024 12:43-0400 Respiratory rate 20 /min Zeny Genaro AUTISTIC TEACHER.DELIVERY CLERK Work Phone: [facility] 10-20-2024 12:56-0400 Diastolic blood pressure 82 mm[Hg] Mirlande Funez MD Work Phone: [facility] 10-20-2024 12:56-0400 Heart rate 114 /min Milrande Funez MD Work Phone: [facility] 10-20-2024 12:56-0400 Respiratory rate 17 /min Mirlande Funez MD Work Phone: [facility] 10-20-2024 12:56-0400 SaO2% (BldA) [Mass fraction] 96 % Mirlande Funez MD Work Phone: [facility] 10-20-2024 12:56-0400 Systolic blood pressure 132 mm[Hg] Mirlande Funez MD Work Phone: [facility] 08-15-2024 13:31-0400 Body height 180 cm Zeny Genaro AUTISTIC TEACHER.DELIVERY CLERK Work Phone: [facility] 08-15-2024 13:31-0400 Body mass index (BMI) [Ratio] 26.91 kg/m2 Zeny Genaro AUTISTIC TEACHER.DELIVERY CLERK Work Phone: [facility] 08-15-2024 13:31-0400 Body weight 87.2 kg Zeny Genaro AUTISTIC TEACHER.DELIVERY CLERK Work Phone: [facility] 08-15-2024 13:31-0400 Diastolic blood pressure 74 mm[Hg] Zeny Genaro AUTISTIC TEACHER.DELIVERY CLERK Work Phone: [facility] 08-15-2024 13:31-0400 Heart rate 96 /min Zeny Genaro AUTISTIC TEACHER.DELIVERY CLERK Work Phone: [facility] 08-15-2024 13:31-0400 SaO2% (BldA) [Mass fraction] 97 % Zeny Genaro AUTISTIC TEACHER.DELIVERY CLERK Work Phone: [facility] 08-15-2024 13:31-0400 Systolic blood pressure 100 mm[Hg] Zeny Genaro AUTISTIC TEACHER.DELIVERY CLERK Work Phone: [facility] 08-08-2024 12:54-0400 Body height 185.4 cm Sunny Mercedes MD Work Phone: [facility] 08-08-2024 12:54-0400 Body mass index (BMI) [Ratio] 25.07 kg/m2 Sunny Mercedes MD Work Phone: [facility] 08-08-2024 12:54-0400 Body weight 86.18 kg Sunny Mercedes MD Work Phone: [facility] 08-08-2024 12:54-0400 Diastolic blood pressure 76 mm[Hg] Sunny Mercedes MD Work Phone: [facility] 08-08-2024 12:54-0400 Heart rate 82 /min Sunny Mercedes MD Work Phone: [facility] 08-08-2024 12:54-0400 Respiratory rate 16 /min Sunny Mercedes MD Work Phone: [facility] 08-08-2024 12:54-0400 SaO2% (BldA) [Mass fraction] 96 % Sunny Mercedes MD Work Phone: [facility] 08-08-2024 12:54-0400 Systolic blood pressure 132 mm[Hg] Sunny Mercedes MD Work Phone: [facility] 07-25-2024 11:14-0400 Body mass index (BMI) [Ratio] 25.62 kg/m2 Zeny Genaro AUTISTIC TEACHER.DELIVERY CLERK Work Phone: [facility] 07-25-2024 11:14-0400 Body weight 88.1 kg Zeny Genaro AUTISTIC TEACHER.DELIVERY CLERK Work Phone: [facility] 07-25-2024 11:14-0400 Diastolic blood pressure 78 mm[Hg] Zeny Genaro AUTISTIC TEACHER.DELIVERY CLERK Work Phone: [facility] 07-25-2024 11:14-0400 Heart rate 98 /min Zeny Genaro AUTISTIC TEACHER.DELIVERY CLERK Work Phone: [facility] 07-25-2024 11:14-0400 SaO2% (BldA) [Mass fraction] 96 % Zeny Genaro AUTISTIC TEACHER.DELIVERY CLERK Work Phone: [facility] 07-25-2024 11:14-0400 Systolic blood pressure 118 mm[Hg] Zeny Genaro AUTISTIC TEACHER.DELIVERY CLERK Work Phone: [facility] 06-08-2024 15:06-0500 Body mass index (BMI) [Ratio] 25.65 kg/m2 Zeny Genaro AUTISTIC TEACHER.DELIVERY CLERK Work Phone: [facility] 06-08-2024 15:06-0500 Body weight 88.2 kg Zeny Genaro AUTISTIC TEACHER.DELIVERY CLERK Work Phone: [facility] 06-08-2024 15:06-0500 Diastolic blood pressure 60 mm[Hg] Zeny Genaro AUTISTIC TEACHER.DELIVERY CLERK Work Phone: [facility] 06-08-2024 15:06-0500 Heart rate 84 /min Zeny Genaro AUTISTIC TEACHER.DELIVERY CLERK Work Phone: [facility] 06-08-2024 15:06-0500 SaO2% (BldA) [Mass fraction] 96 % Zeny Genaro AUTISTIC TEACHER.DELIVERY CLERK Work Phone: [facility] 06-08-2024 15:06-0500 Systolic blood pressure 100 mm[Hg] Zeny Genaro AUTISTIC TEACHER.DELIVERY CLERK Work Phone: [facility] 05-24-2024 11:36-0500 Diastolic blood pressure 58 mm[Hg] Edgar Loaiza DO Work Phone: [facility] 05-24-2024 11:36-0500 Heart rate 83 /min Edgar Loaiza DO Work Phone: [facility] 05-24-2024 11:36-0500 SaO2% (BldA) [Mass fraction] 95 % Edgar Loaiza DO Work Phone: [facility] 05-24-2024 11:36-0500 Systolic blood pressure 98 mm[Hg] Edgar Loaiza DO Work Phone: [facility] 05-17-2024 13:52-0500 Body mass index (BMI) [Ratio] 25.86 kg/m2 Teri Yasmani AUTISTIC TEACHER.DELIVERY CLERK Work Phone: [facility] 05-17-2024 13:52-0500 Body weight 88.91 kg Teri Yasmani AUTISTIC TEACHER.DELIVERY CLERK Work Phone: [facility] 05-17-2024 13:52-0500 Diastolic blood pressure 72 mm[Hg] Teri Yasmani AUTISTIC TEACHER.DELIVERY CLERK Work Phone: [facility] 05-17-2024 13:52-0500 Heart rate 75 /min Teri Yasmani AUTISTIC TEACHER.DELIVERY CLERK Work Phone: [facility] 05-17-2024 13:52-0500 SaO2% (BldA) [Mass fraction] 96 % Teri Yasmani AUTISTIC TEACHER.DELIVERY CLERK Work Phone: [facility] 05-17-2024 13:52-0500 Systolic blood pressure 110 mm[Hg] Teri Yasmani AUTISTIC TEACHER.DELIVERY CLERK Work Phone: [facility] 02-15-2024 14:24-0500 Body mass index (BMI) [Ratio] 25.04 kg/m2 Zeny Genaro AUTISTIC TEACHER.DELIVERY CLERK Work Phone: [facility] 02-15-2024 14:24-0500 Body weight 86.1 kg Zeny Genaro AUTISTIC TEACHER.DELIVERY CLERK Work Phone: [facility] 02-15-2024 14:24-0500 Diastolic blood pressure 80 mm[Hg] Zeny Genaro AUTISTIC TEACHER.DELIVERY CLERK Work Phone: [facility] 02-15-2024 14:24-0500 Heart rate 85 /min Zeny Genaro AUTISTIC TEACHER.DELIVERY CLERK Work Phone: [facility] 02-15-2024 14:24-0500 SaO2% (BldA) [Mass fraction] 96 % Zeny Genaro AUTISTIC TEACHER.DELIVERY CLERK Work Phone: [facility] 02-15-2024 14:24-0500 Systolic blood pressure 110 mm[Hg] Zeny Genaro AUTISTIC TEACHER.DELIVERY CLERK Work Phone: [facility] 01-20-2024 13:55-0400 Diastolic blood pressure 70 mm[Hg] Zeny Genaro AUTISTIC TEACHER.DELIVERY CLERK Work Phone: [facility] 01-20-2024 13:55-0400 Systolic blood pressure 142 mm[Hg] Zeny Genaro AUTISTIC TEACHER.DELIVERY CLERK Work Phone: [facility] 01-20-2024 13:09-0400 Body height 185.4 cm Zeny Genaro AUTISTIC TEACHER.DELIVERY CLERK Work Phone: [facility] 01-20-2024 13:09-0400 Body mass index (BMI) [Ratio] 25.01 kg/m2 Zeny Genaro AUTISTIC TEACHER.DELIVERY CLERK Work Phone: [facility] 01-20-2024 13:09-0400 Body weight 86 kg Zeny Genaro AUTISTIC TEACHER.DELIVERY CLERK Work Phone: [facility] 01-20-2024 13:09-0400 Heart rate 95 /min Zeny Genaro AUTISTIC TEACHER.DELIVERY CLERK Work Phone: [facility] 01-20-2024 13:09-0400 Respiratory rate 16 /min Zeny Genaro AUTISTIC TEACHER.DELIVERY CLERK Work Phone: [facility] 01-20-2024 13:09-0400 SaO2% (BldA) [Mass fraction] 96 % Zeny Genaro AUTISTIC TEACHER.DELIVERY CLERK Work Phone: [facility] 01-06-2024 11:12-0400 Body mass index (BMI) [Ratio] 24.43 kg/m2 Zeny Genaro AUTISTIC TEACHER.DELIVERY CLERK Work Phone: [facility] 01-06-2024 11:12-0400 Body weight 84 kg Zeny Genaro AUTISTIC TEACHER.DELIVERY CLERK Work Phone: [facility] 01-06-2024 11:12-0400 Diastolic blood pressure 64 mm[Hg] Zeny Genaro AUTISTIC TEACHER.DELIVERY CLERK Work Phone: [facility] 01-06-2024 11:12-0400 Heart rate 69 /min Zeny Genaro AUTISTIC TEACHER.DELIVERY CLERK Work Phone: [facility] 01-06-2024 11:12-0400 SaO2% (BldA) [Mass fraction] 97 % Zeny Genaro AUTISTIC TEACHER.DELIVERY CLERK Work Phone: [facility] 01-06-2024 11:12-0400 Systolic blood pressure 90 mm[Hg] Zeny Genaro AUTISTIC TEACHER.DELIVERY CLERK Work Phone: [facility] 12-14-2023 13:40-0400 Diastolic blood pressure 80 mm[Hg] Zeny Genaro AUTISTIC TEACHER.DELIVERY CLERK Work Phone: [facility] 12-14-2023 13:40-0400 Systolic blood pressure 120 mm[Hg] Zeny Genaro AUTISTIC TEACHER.DELIVERY CLERK Work Phone: [facility] 12-14-2023 13:34-0400 Body mass index (BMI) [Ratio] 23.88 kg/m2 Zeny Genaro AUTISTIC TEACHER.DELIVERY CLERK Work Phone: [facility] 12-14-2023 13:34-0400 Body weight 82.1 kg Zeny Genaro AUTISTIC TEACHER.DELIVERY CLERK Work Phone: [facility] 12-14-2023 13:34-0400 Heart rate 89 /min Zeny Elizabethr ERIK.DELIVERY CLERK Work Phone: [facility] 12-14-2023 13:34-0400 SaO2% (BldA) [Mass fraction] 98 % Zeny Genaro AUTISTIC TEACHER.DELIVERY CLERK Work Phone: [facility] 11-16-2023 13:17-0400 Body height 185.4 cm Micah Portillo APRN.KAYLA, DNP Work Phone: [facility] 11-16-2023 13:17-0400 Body mass index (BMI) [Ratio] 24.14 kg/m2 Micah Portillo APRN.KAYLA, DNP Work Phone: [facility] 11-16-2023 13:17-0400 Body temperature 97.5 [degF] Micah Portillo APRN.DELIVERY CLERK, DNP Work Phone: [facility] 11-16-2023 13:17-0400 Body weight 83.01 kg Micah Portillo APRN.KAYLA, DNP Work Phone: [facility] 11-16-2023 13:17-0400 Diastolic blood pressure 78 mm[Hg] Micah Portillo APRN.KAYLA, DNP Work Phone: [facility] 11-16-2023 13:17-0400 Heart rate 94 /min Micah Blashannon AUTISTIC TEACHER.DELIVERY CLERK, DNP Work Phone: [facility] 11-16-2023 13:17-0400 Respiratory rate 18 /min Micah Portillo AUTISTIC TEACHER.DELIVERY CLERK, DNP Work Phone: [facility] 11-16-2023 13:17-0400 SaO2% (BldA) [Mass fraction] 98 % Micah Portillo AUTISTIC TEACHER.DELIVERY CLERK, DNP Work Phone: [facility] 11-16-2023 13:17-0400 Systolic blood pressure 110 mm[Hg] Micah Blaz AUTISTIC TEACHER.DELIVERY CLERK, DNP Work Phone: [facility] 09-15-2023 12:54-0400 Diastolic blood pressure 60 mm[Hg] Zeny Genaro AUTISTIC TEACHER.DELIVERY CLERK Work Phone: [facility] 09-15-2023 12:54-0400 Systolic blood pressure 110 mm[Hg] Zeny Genaro AUTISTIC TEACHER.DELIVERY CLERK Work Phone: [facility] 09-15-2023 12:51-0400 Body height 185.4 cm Zeny Genaro AUTISTIC TEACHER.DELIVERY CLERK Work Phone: [facility] 09-15-2023 12:51-0400 Body mass index (BMI) [Ratio] 22.96 kg/m2 Zeny Genaro AUTISTIC TEACHER.DELIVERY CLERK Work Phone: [facility] 09-15-2023 12:51-0400 Body weight 78.93 kg Zeny Genaro AUTISTIC TEACHER.DELIVERY CLERK Work Phone: [facility] 09-15-2023 12:51-0400 Heart rate 89 /min Zeny Genaro AUTISTIC TEACHER.DELIVERY CLERK Work Phone: [facility] 09-15-2023 12:51-0400 SaO2% (BldA) [Mass fraction] 97 % Zeny Genaro AUTISTIC TEACHER.DELIVERY CLERK Work Phone: [facility] 08-27-2023 13:36-0400 Body height 185.4 cm Irene Moraes MD Work Phone: [facility] 08-27-2023 13:36-0400 Body mass index (BMI) [Ratio] 22.22 kg/m2 Irene Moraes MD Work Phone: [facility] 08-27-2023 13:36-0400 Body weight 76.4 kg Irene Moraes MD Work Phone: [facility] 08-27-2023 13:36-0400 Diastolic blood pressure 81 mm[Hg] Irene Moraes MD Work Phone: [facility] 08-27-2023 13:36-0400 Heart rate 101 /min Irene Moraes MD Work Phone: [facility] 08-27-2023 13:36-0400 Systolic blood pressure 119 mm[Hg] Irene Moraes MD Work Phone: [facility] 08-25-2023 09:30-0400 Body mass index (BMI) [Ratio] 22.03 kg/m2 Zeny Lam APRN.DELIVERY CLERK Work Phone: [facility] 08-25-2023 09:30-0400 Body weight 75.75 kg Zeny Elizabethr AUTISTIC TEACHER.DELIVERY CLERK Work Phone: [facility] 08-25-2023 09:30-0400 Diastolic blood pressure 52 mm[Hg] Zeny Lam AUTISTIC TEACHER.DELIVERY CLERK Work Phone: [facility] 08-25-2023 09:30-0400 Heart rate 98 /min Zeny Lam AUTISTIC TEACHER.DELIVERY CLERK Work Phone: [facility] 08-25-2023 09:30-0400 SaO2% (BldA) [Mass fraction] 97 % Zeny Elizabethr AUTISTIC TEACHER.DELIVERY CLERK Work Phone: [facility] 08-25-2023 09:30-0400 Systolic blood pressure 88 mm[Hg] Zeny Elizabethr AUTISTIC TEACHER.DELIVERY CLERK Work Phone: [facility] 08-10-2023 12:54-0400 Body height 185.4 cm Micah Portillo APRN.DELIVERY CLERK, DNP Work Phone: [facility] 08-10-2023 12:54-0400 Body mass index (BMI) [Ratio] 22.56 kg/m2 Micah Portillo APRN.DELIVERY CLERK, DNP Work Phone: [facility] 08-10-2023 12:54-0400 Body weight 77.56 kg Micah Portillo APRN.DELIVERY CLERK, DNP Work Phone: [facility] 08-10-2023 12:54-0400 Diastolic blood pressure 65 mm[Hg] Micah Portillo APRN.DELIVERY CLERK, DNP Work Phone: [facility] 08-10-2023 12:54-0400 Heart rate 63 /min Micah Portillo APRN.DELIVERY CLERK, DNP Work Phone: [facility] 08-10-2023 12:54-0400 Respiratory rate 16 /min Micah Portillo APRN.DELIVERY CLERK, DNP Work Phone: [facility] 08-10-2023 12:54-0400 Systolic blood pressure 117 mm[Hg] Micah Portillo APRN.DELIVERY CLERK, DNP Work Phone: [facility] 07-27-2023 13:03-0400 Body mass index (BMI) [Ratio] 22.3 kg/m2 Zeny Genaro AUTISTIC TEACHER.DELIVERY CLERK Work Phone: [facility] 07-27-2023 13:03-0400 Body weight 76.66 kg Zeny Elizabethr AUTISTIC TEACHER.DELIVERY CLERK Work Phone: [facility] 07-27-2023 13:03-0400 Diastolic blood pressure 60 mm[Hg] Zeny Genaro AUTISTIC TEACHER.DELIVERY CLERK Work Phone: [facility] 07-27-2023 13:03-0400 Heart rate 65 /min Zeny Genaro AUTISTIC TEACHER.DELIVERY CLERK Work Phone: [facility] 07-27-2023 13:03-0400 SaO2% (BldA) [Mass fraction] 96 % Zeny Genaro AUTISTIC TEACHER.DELIVERY CLERK Work Phone: [facility] 07-27-2023 13:03-0400 Systolic blood pressure 114 mm[Hg] Zeny Genaro AUTISTIC TEACHER.DELIVERY CLERK Work Phone: [facility] 07-21-2023 10:39-0400 Diastolic blood pressure 70 mm[Hg] Edgar Loaiza DO Work Phone: [facility] 07-21-2023 10:39-0400 Heart rate 73 /min Edgar Loaiza DO Work Phone: [facility] 07-21-2023 10:39-0400 SaO2% (BldA) [Mass fraction] 96 % Edgar Loaiza DO Work Phone: [facility] 07-21-2023 10:39-0400 Systolic blood pressure 123 mm[Hg] Edgar Loaiza DO Work Phone: [facility] 07-18-2023 09:02-0400 Body height 185.4 cm Franc Hills MD Work Phone: [facility] 07-18-2023 09:02-0400 Body temperature 98.4 [degF] Franc Hills MD Work Phone: [facility] 07-18-2023 09:02-0400 Body weight 72.12 kg Franc Hills MD Work Phone: [facility] 07-18-2023 09:02-0400 Diastolic blood pressure 50 mm[Hg] Franc Hills MD Work Phone: [facility] 07-18-2023 09:02-0400 Heart rate 62 /min Franc Hills MD Work Phone: [facility] 07-18-2023 09:02-0400 Respiratory rate 12 /min Franc Hills MD Work Phone: [facility] 07-18-2023 09:02-0400 SaO2% (BldA) [Mass fraction] 97 % Franc Hills MD Work Phone: [facility] 07-18-2023 09:02-0400 Systolic blood pressure 114 mm[Hg] Franc Hills MD Work Phone: [facility] 06-29-2023 11:15-0400 Body weight 74.75 kg Zeny Genaro AUTISTIC TEACHER.DELIVERY CLERK Work Phone: [facility] 06-29-2023 11:15-0400 Diastolic blood pressure 68 mm[Hg] Zeny Genaro AUTISTIC TEACHER.DELIVERY CLERK Work Phone: [facility] 06-29-2023 11:15-0400 Heart rate 70 /min Zeny Genaro AUTISTIC TEACHER.DELIVERY CLERK Work Phone: [facility] 06-29-2023 11:15-0400 Respiratory rate 16 /min Zeny Genaro AUTISTIC TEACHER.DELIVERY CLERK Work Phone: [facility] 06-29-2023 11:15-0400 SaO2% (BldA) [Mass fraction] 97 % Zeny Genaro AUTISTIC TEACHER.DELIVERY CLERK Work Phone: [facility] 06-29-2023 11:15-0400 Systolic blood pressure 124 mm[Hg] Zeny Genaro AUTISTIC TEACHER.DELIVERY CLERK Work Phone: [facility] 06-15-2023 13:01-0400 Body weight 75.3 kg Sunny Mercedes MD Work Phone: [facility] 06-15-2023 13:01-0400 Diastolic blood pressure 52 mm[Hg] Sunny Mercedes MD Work Phone: [facility] 06-15-2023 13:01-0400 Heart rate 64 /min Sunny Mercedes MD Work Phone: [facility] 06-15-2023 13:01-0400 SaO2% (BldA) [Mass fraction] 98 % Sunny Mercedes MD Work Phone: [facility] 06-15-2023 13:01-0400 Systolic blood pressure 84 mm[Hg] Sunny Mercedes MD Work Phone: [facility] 05-26-2023 10:25-0500 Diastolic blood pressure 78 mm[Hg] Edgar Loaiza DO Work Phone: [facility] 05-26-2023 10:25-0500 Heart rate 85 /min Edgar Loaiza DO Work Phone: [facility] 05-26-2023 10:25-0500 SaO2% (BldA) [Mass fraction] 97 % Edgar Loaiza DO Work Phone: [facility] 05-26-2023 10:25-0500 Systolic blood pressure 124 mm[Hg] Edgar Loaiza DO Work Phone: [facility] 05-18-2023 13:58-0500 Body weight 75.75 kg Zeny Genaro AUTISTIC TEACHER.DELIVERY CLERK Work Phone: [facility] 05-18-2023 13:58-0500 Diastolic blood pressure 72 mm[Hg] Zeny Genaro AUTISTIC TEACHER.DELIVERY CLERK Work Phone: [facility] 05-18-2023 13:58-0500 Heart rate 86 /min Zeny Genaro AUTISTIC TEACHER.DELIVERY CLERK Work Phone: [facility] 05-18-2023 13:58-0500 Respiratory rate 16 /min Zeny Genaro AUTISTIC TEACHER.DELIVERY CLERK Work Phone: [facility] 05-18-2023 13:58-0500 Systolic blood pressure 128 mm[Hg] Zeny Genaro AUTISTIC TEACHER.DELIVERY CLERK Work Phone: [facility] 01-23-2023 14:13-0400 Body weight 77.11 kg Zeny Genaro AUTISTIC TEACHER.DELIVERY CLERK Work Phone: [facility] 01-23-2023 14:13-0400 Diastolic blood pressure 60 mm[Hg] Zeny Genaro AUTISTIC TEACHER.DELIVERY CLERK Work Phone: [facility] 01-23-2023 14:13-0400 Heart rate 75 /min Zeny Genaro AUTISTIC TEACHER.DELIVERY CLERK Work Phone: [facility] 01-23-2023 14:13-0400 SaO2% (BldA) [Mass fraction] 97 % Zeny Genaro AUTISTIC TEACHER.DELIVERY CLERK Work Phone: [facility] 01-23-2023 14:13-0400 Systolic blood pressure 100 mm[Hg] Zeny Genaro AUTISTIC TEACHER.DELIVERY CLERK Work Phone: [facility] 01-19-2023 12:58-0400 Body weight 79.83 kg Mckinley Leal MD Work Phone: [facility] 01-19-2023 12:58-0400 Heart rate 69 /min Mckinley Leal MD Work Phone: [facility] 01-19-2023 12:58-0400 SaO2% (BldA) [Mass fraction] 96 % Mckinley Leal MD Work Phone: [facility] 12-29-2022 14:52-0400 Body weight 77.11 kg Zeny Genaro AUTISTIC TEACHER.DELIVERY CLERK Work Phone: [facility] 12-29-2022 14:52-0400 Diastolic blood pressure 60 mm[Hg] Zeny Genaro AUTISTIC TEACHER.DELIVERY CLERK Work Phone: [facility] 12-29-2022 14:52-0400 Heart rate 93 /min Zeny Genaro AUTISTIC TEACHER.DELIVERY CLERK Work Phone: [facility] 12-29-2022 14:52-0400 SaO2% (BldA) [Mass fraction] 96 % Zeny Genaro AUTISTIC TEACHER.DELIVERY CLERK Work Phone: [facility] 12-29-2022 14:52-0400 Systolic blood pressure 98 mm[Hg] Zeny Genaro AUTISTIC TEACHER.DELIVERY CLERK Work Phone: [facility] 11-24-2022 17:15-0400 Body weight 79.06 kg Franc Hills MD Work Phone: [facility] 11-24-2022 17:15-0400 Diastolic blood pressure 84 mm[Hg] Franc Hills MD Work Phone: [facility] 11-24-2022 17:15-0400 Heart rate 72 /min Franc Hills MD Work Phone: [facility] 11-24-2022 17:15-0400 Systolic blood pressure 128 mm[Hg] Franc Hills MD Work Phone: [facility] 11-10-2022 14:31-0400 Body height 185.4 cm Salas Johns MD Work Phone: [facility] 11-10-2022 14:31-0400 Body weight 80.47 kg Salas Johns MD Work Phone: [facility] 11-10-2022 14:31-0400 Diastolic blood pressure 73 mm[Hg] Salas Johns MD Work Phone: [facility] 11-10-2022 14:31-0400 Heart rate 72 /min Salas Johns MD Work Phone: [facility] 11-10-2022 14:31-0400 SaO2% (BldA) [Mass fraction] 97 % Salas Johns MD Work Phone: [facility] 11-10-2022 14:31-0400 Systolic blood pressure 132 mm[Hg] Salas Johns MD Work Phone: [facility] 08-11-2022 15:01-0400 Body weight 81.19 kg Franc Hills MD Work Phone: [facility] 08-11-2022 15:01-0400 Diastolic blood pressure 72 mm[Hg] Franc Hills MD Work Phone: [facility] 08-11-2022 15:01-0400 Heart rate 80 /min Franc Hills MD Work Phone: [facility] 08-11-2022 15:01-0400 Respiratory rate 16 /min Franc Hills MD Work Phone: [facility] 08-11-2022 15:01-0400 Systolic blood pressure 118 mm[Hg] Franc Hills MD Work Phone: [facility] 06-02-2022 16:47-0500 Diastolic blood pressure 78 mm[Hg] Franc Hills MD Work Phone: [facility] 06-02-2022 16:47-0500 Heart rate 61 /min Franc Hills MD Work Phone: [facility] 06-02-2022 16:47-0500 Systolic blood pressure 147 mm[Hg] Franc Hills MD Work Phone: [facility] 06-02-2022 16:35-0500 Body height 182.9 cm Franc Hills MD Work Phone: [facility] 06-02-2022 16:35-0500 Body temperature 96.91 [degF] Franc Hills MD Work Phone: [facility] 06-02-2022 16:35-0500 Body weight 83.92 kg Franc Hills MD Work Phone: [facility] 06-02-2022 16:35-0500 Respiratory rate 20 /min Franc Hills MD Work Phone: [facility] 03-24-2022 14:36-0500 Diastolic blood pressure 52 mm[Hg] [facility] Work Phone: 03-24-2022 14:36-0500 Heart rate 71 /min [facility] Work Phone: 03-24-2022 14:36-0500 Respiratory rate 18 /min [facility] Work Phone: 03-24-2022 14:36-0500 SaO2% (BldA) [Mass fraction] 100 % [facility] Work Phone: 03-24-2022 14:36-0500 Systolic blood pressure 87 mm[Hg] [facility] Work Phone: 03-24-2022 13:45-0500 Body temperature 97 [degF] [facility] Work Phone: 03-24-2022 11:19-0500 Body height 185.42 cm [facility] Work Phone: 03-24-2022 11:19-0500 Body mass index (BMI) [Ratio] 22.9 kg/m2 [facility] Work Phone: 03-24-2022 11:19-0500 Body weight 79 kg [facility] Work Phone: 02-03-2022 12:59-0400 Body weight 83.01 kg Bonnie Sharif AUTISTIC TEACHER.KAI WHAKARURUHAU Work Phone: [facility] 02-03-2022 12:59-0400 Diastolic blood pressure 74 mm[Hg] Bonnie Sharif AUTISTIC TEACHER.KAI WHAKARURUHAU Work Phone: [facility] 02-03-2022 12:59-0400 Respiratory rate 16 /min Bonnie Sharif AUTISTIC TEACHER.KAI WHAKARURUHAU Work Phone: [facility] 02-03-2022 12:59-0400 Systolic blood pressure 126 mm[Hg] Bonnie Sharif AUTISTIC TEACHER.KAI WHAKARURUHAU Work Phone: [facility] 11-13-2021 15:06-0400 Diastolic blood pressure 54 mm[Hg] Franc Hills MD Work Phone: [facility] 11-13-2021 15:06-0400 Systolic blood pressure 104 mm[Hg] Franc Hills MD Work Phone: [facility] 11-13-2021 14:31-0400 Body temperature 97.2 [degF] Franc Hills MD Work Phone: [facility] 11-13-2021 14:31-0400 Body weight 81.19 kg Franc Hills MD Work Phone: [facility] 11-13-2021 14:31-0400 Heart rate 60 /min Franc Hills MD Work Phone: [facility] 11-13-2021 14:31-0400 Respiratory rate 16 /min Franc Hills MD Work Phone: [facility] 11-12-2021 13:10-0400 Body height 185.4 cm Micah Rosenberg MD Work Phone: [facility] 11-12-2021 13:10-0400 Body temperature 97.9 [degF] Micah Rosenberg MD Work Phone: [facility] 11-12-2021 13:10-0400 Body weight 82.1 kg Micah Rosenberg MD Work Phone: [facility] 11-12-2021 13:10-0400 Diastolic blood pressure 80 mm[Hg] Micah Rosenberg MD Work Phone: [facility] 11-12-2021 13:10-0400 Heart rate 71 /min Micah Rosenberg MD Work Phone: [facility] 11-12-2021 13:10-0400 SaO2% (BldA) [Mass fraction] 99 % Micah Rosenberg MD Work Phone: [facility] 11-12-2021 13:10-0400 Systolic blood pressure 134 mm[Hg] Micah Rosenberg MD Work Phone: [facility] 10-16-2021 15:41-0400 Diastolic blood pressure 78 mm[Hg] Franc Hills MD Work Phone: [facility] 10-16-2021 15:41-0400 Heart rate 66 /min Franc Hills MD Work Phone: [facility] 10-16-2021 15:41-0400 Systolic blood pressure 139 mm[Hg] Franc Hills MD Work Phone: [facility] 10-16-2021 15:29-0400 Body temperature 97 [degF] Franc Hills MD Work Phone: [facility] 10-16-2021 15:29-0400 Body weight 80.65 kg Franc Hills MD Work Phone: [facility] 10-16-2021 15:29-0400 Respiratory rate 20 /min Franc Hills MD Work Phone: [facility] 09-28-2021 16:13-0400 Diastolic blood pressure 76 mm[Hg] [facility] Work Phone: 09-28-2021 16:13-0400 Heart rate 81 /min [facility] Work Phone: 09-28-2021 16:13-0400 Respiratory rate 16 /min [facility] Work Phone: 09-28-2021 16:13-0400 SaO2% (BldA) [Mass fraction] 97 % [facility] Work Phone: 09-28-2021 16:13-0400 Systolic blood pressure 124 mm[Hg] [facility] Work Phone: 09-28-2021 13:22-0400 Body height 185.42 cm [facility] Work Phone: 09-28-2021 13:22-0400 Body mass index (BMI) [Ratio] 48.5 kg/m2 [facility] Work Phone: 09-28-2021 13:22-0400 Body temperature 97.4 [degF] [facility] Work Phone: 09-28-2021 13:22-0400 Body weight 167 kg [facility] Work Phone: 09-23-2021 09:13-0400 Body weight 81.65 kg Teri Yasmani AUTISTIC TEACHER.DELIVERY CLERK Work Phone: [facility] 09-23-2021 09:13-0400 Diastolic blood pressure 78 mm[Hg] Teri Yasmani AUTISTIC TEACHER.DELIVERY CLERK Work Phone: [facility] 09-23-2021 09:13-0400 Heart rate 64 /min Teri Yasmani AUTISTIC TEACHER.DELIVERY CLERK Work Phone: [facility] 09-23-2021 09:13-0400 Respiratory rate 16 /min Teri Yasmani AUTISTIC TEACHER.DELIVERY CLERK Work Phone: [facility] 09-23-2021 09:13-0400 SaO2% (BldA) [Mass fraction] 98 % Teri Yasmani AUTISTIC TEACHER.DELIVERY CLERK Work Phone: [facility] 09-23-2021 09:13-0400 Systolic blood pressure 132 mm[Hg] Teri Yasmani AUTISTIC TEACHER.DELIVERY CLERK Work Phone: [facility] 08-22-2021 18:14-0400 Diastolic blood pressure 77 mm[Hg] Franc Hills MD Work Phone: [facility] 08-22-2021 18:14-0400 Heart rate 65 /min Franc Hills MD Work Phone: [facility] 08-22-2021 18:14-0400 Systolic blood pressure 150 mm[Hg] Franc Hills MD Work Phone: [facility] 08-22-2021 17:45-0400 Body temperature 97.81 [degF] Franc Hills MD Work Phone: [facility] 08-22-2021 17:45-0400 Body weight 81.19 kg Franc Hills MD Work Phone: [facility] 08-22-2021 17:45-0400 Respiratory rate 16 /min Franc Hills MD Work Phone: [facility] 08-22-2021 17:45-0400 SaO2% (BldA) [Mass fraction] 96 % Franc Hills MD Work Phone: [facility] 08-16-2021 13:17-0400 Body height 185.4 cm Mj Dos Santos MD Work Phone: [facility] 08-16-2021 13:17-0400 Body weight 81.19 kg Mj Dos Santos MD Work Phone: [facility] 08-16-2021 13:17-0400 Diastolic blood pressure 73 mm[Hg] Mj Dos Santos MD Work Phone: [facility] 08-16-2021 13:17-0400 Heart rate 63 /min Mj Dos Santos MD Work Phone: [facility] 08-16-2021 13:17-0400 SaO2% (BldA) [Mass fraction] 97 % Mj Dos Santos MD Work Phone: [facility] 08-16-2021 13:17-0400 Systolic blood pressure 141 mm[Hg] jM Dos Santos MD Work Phone: [facility] 07-03-2021 12:44-0400 Body weight 83.46 kg Sara Older AUTISTIC TEACHER.DELIVERY CLERK Work Phone: [facility] 07-03-2021 12:44-0400 Diastolic blood pressure 62 mm[Hg] Sara Older AUTISTIC TEACHER.DELIVERY CLERK Work Phone: [facility] 07-03-2021 12:44-0400 Heart rate 66 /min Sara Older AUTISTIC TEACHER.DELIVERY CLERK Work Phone: [facility] 07-03-2021 12:44-0400 Respiratory rate 16 /min Sara Older AUTISTIC TEACHER.DELIVERY CLERK Work Phone: [facility] 07-03-2021 12:44-0400 SaO2% (BldA) [Mass fraction] 97 % Sara Older AUTISTIC TEACHER.DELIVERY CLERK Work Phone: [facility] 07-03-2021 12:44-0400 Systolic blood pressure 112 mm[Hg] Sara Older AUTISTIC TEACHER.DELIVERY CLERK Work Phone: [facility] Encounters Encounter Date Encounter Type Care Provider Facility Start: 11-15-2024 End: 11-15-2024 Patient encounter procedure Zeny Lam AUTISTIC TEACHER.DELIVERY CLERK Work Phone: [facility] Comment on above: SOB (shortness of br eath) (Primary Dx); Chronic low back pain without sciatica, unspecified back pain laterality; Compression fracture of L1 vertebra, sequela; 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); correction (current) use of anticoagulants; IFG (impaired fasting glucose); Primary hypertension; Vitamin D deficiency; Insomnia, unspecified type Start: 11-15-2024 End: 11-15-2024 ambulatory ZENY LAM Facility:[facility] Start: 11-09-2024 End: 11-09-2024 ambulatory ZENY LAM Facility:[facility] Start: 10-28-2024 End: 10-28-2024 Telephone encounter Zeny Lam APRN.DELIVERY CLERK Work Phone: [facility] Comment on above: Anticoagulation Start: 10-28-2024 End: 10-28-2024 ambulatory ZENY LAM Facility:[facility] Start: 10-26-2024 End: 10-26-2024 Telephone encounter Shruti Carrington APRN.DELIVERY CLERK Work Phone: Pulmonary Medicine Comment on above: Patient Update; Pelon calderon Start: 10-25-2024 End: 10-26-2024 Telephone encounter Zeny Lam AUTISTIC TEACHER.DELIVERY CLERK Work Phone: [facility] Comment on above: Medication Question; bp reading Start: 10-22-2024 End: 10-24-2024 ambulatory Mirlande Funez MD Work Phone: [facility] Comment on above: Chest X-ray Start: 10-21-2024 End: 10-24-2024 ambulatory [facility] Provider [facility] Comment on above: Covid shot Start: 10-20-2024 End: 10-20-2024 ambulatory MIRLANDE FUNEZ Facility:[facility] Start: 10-20-2024 End: 10-20-2024 Subsequent hospital visit by physician Mal[facility] Work Phone: Radiology Comment on above: SOB (shortness of br eath) [R06.02] Start: 10-20-2024 End: 10-20-2024 Patient encounter procedure Mirlande Funez MD Work Phone: [facility] Medicine Comment on above: SOB (shortness of br eath) (Primary Dx); Mild persistent asthma without complication (HCC); History of pulmonary embolism Start: 10-20-2024 End: 10-20-2024 ambulatory ZENY LAM Facility:[facility] Start: 10-17-2024 End: 10-18-2024 Telephone encounter Zeny Lam AUTISTIC TEACHER.DELIVERY CLERK Work Phone: Coumadin [facility] Comment on above: Medication Question Start: 10-14-2024 End: 10-14-2024 Telephone encounter Zeny Lam APRN.DELIVERY CLERK Work Phone: [facility] [place] Comment on above: Anticoagulation Start: 10-14-2024 End: 10-14-2024 ambulatory ZENY LAM Facility:[facility] Start: 10-10-2024 End: 10-11-2024 Telephone encounter Zeny Lam APRN.DELIVERY CLERK Work Phone: [facility] [place] Comment on above: Patient Update Start: 10-09-2024 End: 10-10-2024 ambulatory [facility] Provider [facility] [place] Comment on above: Olmesartan Nifedipine Start: 10-05-2024 End: 10-05-2024 Telephone encounter Zeny Lam APRN.DELIVERY CLERK Work Phone: [facility] [place] Comment on above: Anticoagulation Start: 10-05-2024 End: 10-05-2024 ambulatory [facility] Provider [facility] [place] Comment on above: Bone Density test Start: 09-27-2024 End: 09-27-2024 ambulatory [facility] Provider [facility] [place] Comment on above: Meeting with Bradley Funez Start: 09-21-2024 End: 09-21-2024 Follow-up encounter Gabby Rm LPN [facility] [place] Comment on above: Anticoagulation Start: 09-21-2024 End: 09-23-2024 Telephone encounter Zeny Lam APRN.DELIVERY CLERK Work Phone: [facility] [place] Comment on above: Anticoagulation Start: 09-21-2024 End: 09-21-2024 ambulatory ZENY LAM Facility:[facility] Start: 09-14-2024 End: 09-19-2024 Telephone encounter Mirlande Funez MD Work Phone: Pulmonary Medicine Comment on above: Patient Question Orders Start: 09-12-2024 End: 09-12-2024 Telephone encounter Zeny Lam APRN.DELIVERY CLERK Work Phone: [facility] [place] Comment on above: Patient Question Start: 09-08-2024 End: 09-09-2024 Refill Zeny Lam APRN.DELIVERY CLERK Work Phone: [facility] [place] Comment on above: Refill Request Change Pharmacy Start: 09-07-2024 End: 09-07-2024 Telephone encounter Zeny Lam APRN.DELIVERY CLERK Work Phone: [facility] [place] Comment on above: Anticoagulation Start: 09-07-2024 End: 09-07-2024 ambulatory ZENY LAM Facility:[facility] Start: 09-05-2024 End: 09-06-2024 Refill Bonnie Sharif AUTISTIC TEACHER.KAI WHAKARURUHAU Work Phone: [facility] [place] Comment on above: Refill Request Start: 08-24-2024 End: 08-24-2024 ambulatory ZENY GENARO Facility:[facility] Start: 08-21-2024 End: 08-22-2024 ambulatory [facility] Provider [facility] [place] Comment on above: Nasacort Start: 08-19-2024 End: 08-22-2024 Telephone encounter Zeny Lam AUTISTIC TEACHER.DELIVERY CLERK Work Phone: [facility] [place] Comment on above: Patient Question Start: 08-15-2024 End: 08-15-2024 [facility] [facility] Start: 08-15-2024 End: 08-15-2024 Patient encounter procedure Zeny Lam AUTISTIC TEACHER.DELIVERY CLERK Work Phone: [facility] [place] Comment on above: Medicare annual well ness visit, subsequent (Primary Dx); Ulcer of toe of left foot, unspecified ulcer stage (HCC); Shortness of breath; MCI (mild cognitive impairment); Primary hypertension Start: 08-11-2024 End: 08-11-2024 Patient encounter procedure Kvng Mcnamara MD Work Phone: Ophthalmology Comment on above: Macular hole of left eye (Primary Dx); Posterior vitreous detachment of right eye Start: 08-11-2024 End: 08-12-2024 ambulatory [facility] Provider [facility] [place] Comment on above: Blood pressure readi ngs. Start: 08-10-2024 End: 10-10-2024 Follow-up encounter Zeny Lam APRN.DELIVERY CLERK Work Phone: [facility] [place] Start: 08-10-2024 End: 08-10-2024 Telephone encounter Zeny Lam AUTISTIC TEACHER.DELIVERY CLERK Work Phone: [facility] [place] Comment on above: Anticoagulation Start: 08-10-2024 End: 08-10-2024 ambulatory ZENY GENARO Facility:[facility] Start: 08-09-2024 End: 08-09-2024 Patient encounter procedure [facility] Comment on above: Chronic low back sharon n without sciatica, unspecified back pain laterality (Primary Dx) Start: 08-09-2024 End: 08-09-2024 ambulatory WALT YANG Facility:[facility] Start: 08-08-2024 End: 08-08-2024 Patient encounter procedure Sunny Mercedes MD Work Phone: Cardiology Comment on above: PAD (peripheral bart ry disease) (Primary Dx); Bilateral carotid artery stenosis; Primary hypertension; Mixed hyperlipidemia; History of left-sided carotid endarterectomy; 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) Start: 08-08-2024 End: 08-08-2024 ambulatory SUNNY MERCEDES Facility:[facility] Start: 08-06-2024 End: 08-06-2024 ambulatory Tonie Mai RN NURSE IRONWORKER Comment on above: Patient Update Start: 08-05-2024 End: 08-05-2024 ambulatory [facility] [place] Comment on above: Test today Start: 08-04-2024 End: 08-04-2024 Patient encounter procedure [facility] Work Phone: PULM LAB [facility] Start: 08-04-2024 End: 08-08-2024 ambulatory [facility] Work Phone: PULM LAB [facility] Comment on above: Spirometry Pulmonary Function T est Start: 07-28-2024 End: 07-28-2024 ambulatory GAYLE GREEN Facility:[facility] Start: 07-27-2024 End: 07-27-2024 Telephone encounter Zeny Lam APRN.DELIVERY CLERK Work Phone: [facility] [place] Comment on above: Anticoagulation Start: 07-27-2024 End: 07-27-2024 ambulatory ZENY LAM Facility:[facility] Start: 07-26-2024 End: 07-26-2024 Patient encounter procedure [facility] Comment on above: Chronic low back sharon n without sciatica, unspecified back pain laterality (Primary Dx) Start: 07-26-2024 End: 07-26-2024 ambulatory WALT YANG Facility:[facility] Start: 07-25-2024 End: 07-25-2024 Patient encounter procedure Zeny Lam APRN.DELIVERY CLERK Work Phone: [facility] [place] Comment on above: Shortness of breath (Primary Dx); Primary hypertension; 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); Chronic low back pain without sciatica, unspecified back pain laterality; Neck pain Start: 07-25-2024 End: 07-25-2024 [facility] Facility:[facility] Start: 07-19-2024 End: 09-18-2024 Follow-up encounter Teri Gruber APRN.DELIVERY CLERK Work Phone: [facility] [place] Start: 07-18-2024 End: 07-18-2024 Telephone encounter Zeny Lam APRN.DELIVERY CLERK Work Phone: [facility] [place] Comment on above: Patient Update (re: stress test); Appointment; Patient Question (re: Nifedipine) Start: 07-18-2024 End: 07-18-2024 Nursing evaluation of patient and report Nurse Card [facility] Work Phone: Cardiology Comment on above: Shortness of breath Start: 07-18-2024 End: 07-18-2024 [facility] Facility:[facility] Start: 07-18-2024 End: 07-18-2024 ambulatory [facility] Facility:[facility] Start: 07-18-2024 End: 07-18-2024 Subsequent hospital visit by physician [facility] Work Phone: Nuclear Medicine Comment on above: Shortness of breath [R06.02] Start: 07-13-2024 End: 07-13-2024 Follow-up encounter Gabby Rm LPN [facility] [place] Comment on above: Opened In Error Start: 07-13-2024 End: 07-13-2024 Telephone encounter Zeny Lam APRN.DELIVERY CLERK Work Phone: [facility] [place] Comment on above: Anticoagulation Start: 07-13-2024 End: 07-13-2024 [facility] Facility:[facility] Start: 07-11-2024 End: 07-11-2024 ambulatory Nurse Card [facility]str Work Phone: Cardiology Comment on above: Stress Test Instruct ions for 07/18/24 Start: 07-11-2024 End: 07-11-2024 E-mail encounter from caregiver Nurse Card [facility]str Work Phone: Cardiology Start: 07-07-2024 End: 07-22-2024 Telephone encounter Zeny Lam APRN.DELIVERY CLERK Work Phone: [facility] [place] Comment on above: Patient Update Start: 07-01-2024 End: 07-01-2024 Refill Zeny Lam APRN.DELIVERY CLERK Work Phone: [facility] [place] Comment on above: Med Change Request Start: 06-29-2024 End: 06-30-2024 Telephone encounter Zeny Lam APRN.DELIVERY CLERK Work Phone: [facility] [place] Comment on above: Anticoagulation Start: 06-29-2024 End: 06-29-2024 ambulatory ZENY LAM Facility:[facility] Start: 06-25-2024 End: 06-27-2024 Refill Zeny Lam APRN.DELIVERY CLERK Work Phone: [facility] [place] Comment on above: Refill Request Start: 06-23-2024 End: 07-01-2024 ambulatory [facility] Provider [facility] [place] Comment on above: Shortness of breath Start: 06-20-2024 End: 06-21-2024 Telephone encounter Zeny Lam APRN.DELIVERY CLERK Work Phone: [facility] [place] Start: 06-16-2024 End: 08-16-2024 Follow-up encounter Bonnie Sharif APRN.KAI WHAKARURUHAU Work Phone: [facility] [place] Start: 06-15-2024 End: 06-15-2024 Telephone encounter Zeny Lam APRN.DELIVERY CLERK Work Phone: [facility] [place] Comment on above: Anticoagulation Start: 06-15-2024 End: 06-15-2024 ambulatory [facility] Provider [facility] [place] Comment on above: Acupuncture Start: 06-10-2024 End: 06-10-2024 ambulatory [facility] Provider [facility] [place] Comment on above: Low pressure causing shortness of breath Start: 06-08-2024 End: 06-08-2024 Refill Gabby Rm LPN [facility] [place] Comment on above: Refill Request Shortness of breath (Primary Dx); Primary hypertension; Chronic low back pain without sciatica, unspecified back pain laterality; Bilateral carotid artery stenosis; Vision abnormalities Start: 06-07-2024 End: 06-08-2024 Refill Arti Baxter APRN.CNP Work Phone: [facility] [place] Comment on above: Refill Request Start: 06-06-2024 End: 06-06-2024 Telephone encounter Zeny Lam APRN.CNP Work Phone: [facility] [place] Comment on above: Patient Update; Imelda ent Question Start: 06-01-2024 End: 06-02-2024 Telephone encounter Mani Edwards MD Work Phone: [facility] [place] Comment on above: Anticoagulation Start: 06-01-2024 End: 06-01-2024 ambulatory ZENY LAM Facility:[facility] Start: 05-30-2024 End: 06-03-2024 Telephone encounter Zeny Lam APRN.CNP Work Phone: [facility] [place] Comment on above: questions regarding testing Start: 05-24-2024 End: 05-24-2024 Patient encounter procedure Edgar Loaiza DO Work Phone: Vascular Surgery Comment on above: PAD (peripheral bart ry disease) (HCC) (Primary Dx); Stenosis of left carotid artery Start: 05-24-2024 End: 05-24-2024 ambulatory EDGAR LOAIZA Facility:[facility] Start: 05-19-2024 End: 05-19-2024 ambulatory GAYLE GREEN Facility:[facility] Start: 05-19-2024 End: 05-19-2024 Patient encounter procedure Gayle Green Work Phone: Podiatry Comment on above: Onychomycosis (Prima ry Dx); Pain in toe of left foot; Pain in toe of right foot; PAD (peripheral artery disease) (HCC); Hammer toe, unspecified laterality Start: 05-18-2024 End: 05-18-2024 Telephone encounter Zeny Lam APRN.CNP Work Phone: [facility] [place] Comment on above: Anticoagulation Start: 05-18-2024 End: 05-18-2024 ambulatory ZENY ELIZABETHR Facility:[facility] Start: 05-17-2024 End: 05-17-2024 ambulatory TERI GRUBER Facility:[facility] Start: 05-17-2024 End: 05-17-2024 Office outpatient visit 25 minutes Teri Gruber AUTISTIC TEACHER.DELIVERY CLERK Work Phone: [facility] [place] Comment on above: Shortness of breath (Primary Dx); Chronic low back pain without sciatica, unspecified back pain laterality; Neck pain Start: 05-11-2024 End: 05-11-2024 Telephone encounter Zeny Genaro AUTISTIC TEACHER.DELIVERY CLERK Work Phone: [facility] [place] Comment on above: vaccine question Start: 05-10-2024 End: 05-10-2024 Telephone encounter Zeny Genaro AUTISTIC TEACHER.DELIVERY CLERK Work Phone: [facility] [place] Comment on above: Anticoagulation Start: 05-10-2024 End: 05-10-2024 ambulatory [facility] Facility:[facility] Start: 04-27-2024 End: 04-27-2024 Telephone encounter Zeny Genaro AUTISTIC TEACHER.DELIVERY CLERK Work Phone: [facility] [place] Comment on above: Anticoagulation Start: 04-27-2024 End: 04-27-2024 ambulatory [facility] Facility:[facility] Start: 04-12-2024 End: 04-12-2024 Telephone encounter Zeny Genaro AUTISTIC TEACHER.DELIVERY CLERK Work Phone: [facility] [place] Comment on above: Anticoagulation Start: 04-12-2024 End: 04-12-2024 ambulatory [facility] Facility:[facility] Start: 03-25-2024 End: 03-25-2024 Telephone encounter Zeny Genaro AUTISTIC TEACHER.DELIVERY CLERK Work Phone: [facility] [place] Comment on above: Patient Question Start: 03-24-2024 End: 03-24-2024 Telephone encounter Zeny Genaro AUTISTIC TEACHER.DELIVERY CLERK Work Phone: [facility] [place] Comment on above: Orders Anticoagulation Start: 03-24-2024 End: 03-24-2024 [facility] Facility:[facility] Start: 03-22-2024 End: 03-25-2024 Telephone encounter Zeny Genaro AUTISTIC TEACHER.DELIVERY CLERK Work Phone: [facility] [place] Comment on above: Patient Question Patient Question (lidia gilliam) Start: 03-15-2024 End: 03-16-2024 Refill Zeny Genaro AUTISTIC TEACHER.DELIVERY CLERK Work Phone: [facility] [place] Comment on above: Refill Request Start: 03-10-2024 End: 03-11-2024 Telephone encounter Zeny Genaro AUTISTIC TEACHER.DELIVERY CLERK Work Phone: [facility] [place] Comment on above: Anticoagulation Start: 03-10-2024 End: 03-10-2024 [facility] Facility:[facility] Start: 03-04-2024 End: 03-08-2024 ambulatory Zeny Genaro AUTISTIC TEACHER.DELIVERY CLERK Work Phone: [facility] [place] Start: 03-04-2024 End: 03-09-2024 Patient encounter procedure Zeny Genaro AUTISTIC TEACHER.DELIVERY CLERK Work Phone: [facility] [place] Comment on above: Update my INR appoin tments for next year. Refill Request Start: 02-29-2024 End: 02-29-2024 [facility] Facility:[facility] Start: 02-29-2024 End: 02-29-2024 Subsequent hospital visit by physician Cheli [facility] (I-Stat) Work Phone: Cat Scan Comment on above: Primary hypertension [I10] Start: 02-25-2024 End: 02-25-2024 Telephone encounter Zeny Genaro AUTISTIC TEACHER.DELIVERY CLERK Work Phone: [facility] [place] Comment on above: Anticoagulation Start: 02-25-2024 End: 02-25-2024 [facility] Facility:[facility] Start: 02-15-2024 End: 02-15-2024 Patient encounter procedure Zeny Genaro AUTISTIC TEACHER.DELIVERY CLERK Work Phone: [facility] [place] Comment on above: Primary hypertension (Primary Dx); Dizziness; Chronic low back pain without sciatica, unspecified back pain laterality; Neck pain; 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) Start: 02-15-2024 End: 02-15-2024 ambulatory ZENY ELIZABETHR Facility:[facility] Start: 02-15-2024 End: 02-16-2024 Telephone encounter Zeny Genaro AUTISTIC TEACHER.DELIVERY CLERK Work Phone: [facility] [place] Comment on above: Medication Question Start: 02-14-2024 End: 02-15-2024 ambulatory Zeny Elizabethr AUTISTIC TEACHER.DELIVERY CLERK Work Phone: [facility] [place] Comment on above: Prescription renewal s. Refill Request Start: 02-09-2024 End: 02-09-2024 Telephone encounter Zeny Genaro AUTISTIC TEACHER.DELIVERY CLERK Work Phone: [facility] [place] Comment on above: Anticoagulation Start: 02-09-2024 End: 02-09-2024 [facility] ZENY LAM Facility:[facility] Start: 02-07-2024 End: 02-08-2024 ambulatory Zeny Elizabethr AUTISTIC TEACHER.DELIVERY CLERK Work Phone: [facility] [place] Comment on above: Neck X-ray results Start: 02-04-2024 End: 02-05-2024 Telephone encounter Zeny Genaro AUTISTIC TEACHER.DELIVERY CLERK Work Phone: [facility] [place] Comment on above: Patient Question Start: 02-01-2024 End: 02-01-2024 ambulatory ZENY LAM Facility:[facility] Start: 02-01-2024 End: 02-01-2024 Subsequent hospital visit by physician Mala [facility] [place] Work Phone: Radiology Comment on above: Neck pain [M54.2] Start: 02-01-2024 End: 02-01-2024 Telephone encounter Zeny Genaro AUTISTIC TEACHER.DELIVERY CLERK Work Phone: [facility] [place] Start: 01-30-2024 End: 02-01-2024 ambulatory Zeny Genaro AUTISTIC TEACHER.DELIVERY CLERK Work Phone: [facility] Medicine [place] Comment on above: Blood pressure the o ther way. Start: 01-29-2024 End: 01-29-2024 ambulatory Zeny Gnearo AUTISTIC TEACHER.DELIVERY CLERK Work Phone: [facility] [place] Comment on above: Blood pressure Start: 01-29-2024 End: 02-01-2024 Telephone encounter Zeny Genaro AUTISTIC TEACHER.DELIVERY CLERK Work Phone: [facility] [place] Comment on above: my chart message emanuel carterd to phone note, blood pressure is Start: 01-28-2024 End: 01-29-2024 Telephone encounter Zeny Genaro AUTISTIC TEACHER.DELIVERY CLERK Work Phone: [facility] [place] Comment on above: blood pressure eleva tion Start: 01-26-2024 End: 01-26-2024 Telephone encounter Zeny Genaro AUTISTIC TEACHER.DELIVERY CLERK Work Phone: [facility] [place] Comment on above: Blood Pressure; Anti coagulation Start: 01-26-2024 End: 01-26-2024 ambulatory ZENY GENARO Facility:[facility] Start: 01-20-2024 End: 01-20-2024 Patient encounter procedure Zeny Genaro AUTISTIC TEACHER.DELIVERY CLERK Work Phone: Internal Medicine [place] Comment on above: Primary hypertension (Primary Dx); Compression fracture of L1 vertebra with routine healing, subsequent encounter; Chronic bilateral low back pain with bilateral sciatica; Other fatigue; SOB (shortness of breath) Start: 01-20-2024 End: 01-20-2024 ambulatory ZENY GENARO Facility:[facility] Start: 01-12-2024 End: 01-12-2024 Telephone encounter Zeny Genaro AUTISTIC TEACHER.DELIVERY CLERK Work Phone: Internal Medicine [place] Comment on above: Anticoagulation Start: 01-12-2024 End: 01-12-2024 [address] [facility] Start: 01-11-2024 End: 01-11-2024 Telephone encounter Zeny Genaro AUTISTIC TEACHER.DELIVERY CLERK Work Phone: [facility] [place] Comment on above: Patient Update Start: 01-10-2024 End: 01-11-2024 ambulatory Zeny Genaro AUTISTIC TEACHER.DELIVERY CLERK Work Phone: [facility] [place] Start: 01-10-2024 End: 01-11-2024 Emergency department patient visit Zeny Genaro AUTISTIC TEACHER.DELIVERY CLERK Work Phone: [facility] [place] Comment on above: Emergency room visit Start: 01-08-2024 End: 01-08-2024 Emergency department patient visit Lisandro Mora Facility:[facility] Start: 01-06-2024 End: 01-06-2024 Patient encounter procedure Zeny Genaro AUTISTIC TEACHER.DELIVERY CLERK Work Phone: [facility] Medicine [place] Comment on above: Other fatigue (Prima ry Dx); Side effect of medication; SOB (shortness of breath); Screening for depression Start: 01-06-2024 End: 01-06-20[address] [facility] Facility[facility] Start: 01-05-2024 End: 01-05-2024 Telephone encounter Zeny Genaro AUTISTIC TEACHER.DELIVERY CLERK Work Phone: Internal [facility] Comment on above: Results Start: 01-05-2024 End: 01-05-2024 [facility] Facility:[facility] Start: 01-02-2024 End: 01-04-2024 ambulatory Zeny Genaro AUTISTIC TEACHER.DELIVERY CLERK Work Phone: [facility] [place] Comment on above: Insurance Start: 01-01-2024 End: 01-01-2024 Telephone encounter Zeny Genaro AUTISTIC TEACHER.DELIVERY CLERK Work Phone: Internal [facility] Comment on above: Anticoagulation Start: 01-01-2024 End: 01-01-2024 [facility] Facility:[facility] Start: 12-28-2023 End: 12-28-2023 Telephone encounter Zeny Genaro AUTISTIC TEACHER.DELIVERY CLERK Work Phone: Internal [facility] Comment on above: Anticoagulation Start: 12-28-2023 End: 12-28-[address] [facility] Start: 12-27-2023 End: 12-28-2023 Refill Zeny Genaro AUTISTIC TEACHER.DELIVERY CLERK Work Phone: Internal [facility] Comment on above: Refill Request Start: 12-21-2023 End: 12-21-2023 Telephone encounter Zeny Genaro AUTISTIC TEACHER.DELIVERY CLERK Work Phone: [facility] [place] Comment on above: Anticoagulation Start: 12-21-2023 End: 12-21-2023 ambulatory ZENY GENARO Facility:[facility] Start: 12-14-2023 End: 12-14-2023 Patient encounter procedure Zeny Genaro AUTISTIC TEACHER.DELIVERY CLERK Work Phone: [facility] [place] Comment on above: Primary hypertension (Primary Dx); Pain, dental; Compression fracture of L1 vertebra with routine healing, subsequent encounter; Chronic low back pain without sciatica, unspecified back pain laterality Start: 12-14-2023 End: 12-15-2023 ambulatory Zeny Genaro AUTISTIC TEACHER.DELIVERY CLERK Work Phone: [facility] [place] Comment on above: No questions Start: 12-10-2023 End: 12-10-2023 Telephone encounter Zeny Genaro AUTISTIC TEACHER.DELIVERY CLERK Work Phone: [facility] [place] Comment on above: Patient Update Start: 12-08-2023 End: 12-08-2023 Refill Zeny Genaro AUTISTIC TEACHER.DELIVERY CLERK Work Phone: [facility] [place] Comment on above: Refill Request Anticoagulation Start: 12-02-2023 End: 12-02-2023 Refill Zeny Genaro AUTISTIC TEACHER.DELIVERY CLERK Work Phone: [facility] [place] Comment on above: Refill Request Start: 11-24-2023 End: 11-24-2023 Telephone encounter Zeny Genaro AUTISTIC TEACHER.DELIVERY CLERK Work Phone: [facility] [place] Comment on above: Results Start: 11-24-2023 End: 11-24-2023 ambulatory [facility] GENARO Facility:[facility] Start: 11-23-2023 End: 11-23-2023 Telephone encounter Zeny Genaro AUTISTIC TEACHER.DELIVERY CLERK Work Phone: [facility] [place] Comment on above: Patient Question Start: 11-16-2023 End: 11-16-2023 Patient encounter procedure Micah Portillo APRN.DELIVERY CLERK, DNP Work Phone: Urology Comment on above: Benign prostatic hyp erplasia with nocturia (Primary Dx); Urgency of urination Start: 11-12-2023 End: 11-12-2023 ambulatory Zeny Genaro AUTISTIC TEACHER.DELIVERY CLERK Work Phone: [facility] [place] Start: 11-12-2023 Follow-up encounter Zeny Cleav er AUTISTIC TEACHER.DELIVERY CLERK Work Phone: [facility] [place] Comment on above: Follow up out of Net work Acupuncture Schedule Start: 11-12-2023 End: 11-12-2023 Patient encounter procedure Peterphyllis [facility] Comment on above: Chronic low back sharon n without sciatica, unspecified back pain laterality (Primary Dx) Start: 11-10-2023 ambulatory Zeny Genaro AUTISTIC TEACHER.DELIVERY CLERK Work Phone: [facility] [place] Start: 11-10-2023 Follow-up encounter Zeny Cleav er AUTISTIC TEACHER.DELIVERY CLERK Work Phone: [facility] [place] Comment on above: Acupuncture follow u p Start: 11-10-2023 Telephone encounter Zeny Cleav er AUTISTIC TEACHER.DELIVERY CLERK Work Phone: [facility] Comment on above: Anticoagulation Start: 10-30-2023 Telephone encounter Zeny Cleav er AUTISTIC TEACHER.DELIVERY CLERK Work Phone: [facility] [place] Comment on above: Patient Update (INR) Start: 10-29-2023 Refill Zeny Genaro AUTISTIC TEACHER.DELIVERY CLERK Work Phone: [facility] [place] Comment on above: Refill Request Start: 10-23-2023 Telephone encounter Zeny Cleav er AUTISTIC TEACHER.DELIVERY CLERK Work Phone: [facility] [place] Comment on above: Anticoagulation Start: 10-06-2023 Refill Zeny Genaro AUTISTIC TEACHER.DELIVERY CLERK Work Phone: [facility] [place] Comment on above: Refill Request Start: 10-05-2023 Telephone encounter Zeny Cleav er AUTISTIC TEACHER.DELIVERY CLERK Work Phone: [facility] [place] Start: 09-30-2023 Refill Zeny Genaro AUTISTIC TEACHER.DELIVERY CLERK Work Phone: [facility] [place] Comment on above: Refill Request Start: 09-25-2023 Telephone encounter Zeny Cleav er AUTISTIC TEACHER.DELIVERY CLERK Work Phone: [address] [place] [address] Comment on above: Patient Update Start: 09-24-2023 Telephone encounter Zeny Cleav er AUTISTIC TEACHER.DELIVERY CLERK Work Phone: [facility] [place] Comment on above: letter should be com ing to provider Start: 09-23-2023 Telephone encounter Zeny Cleav er AUTISTIC TEACHER.DELIVERY CLERK Work Phone: [facility] [place] Comment on above: Anticoagulation Start: 09-15-2023 ambulatory Zeny Genaro AUTISTIC TEACHER.DELIVERY CLERK Work Phone: [facility] [place] Start: 09-15-2023 End: 09-15-2023 Patient encounter procedure Zeny Genaro AUTISTIC TEACHER.DELIVERY CLERK Work Phone: [facility] [place] Comment on above: Chronic bilateral lo w back pain with bilateral sciatica (Primary Dx); Compression fracture of L1 vertebra with routine healing, subsequent encounter; Mixed hyperlipidemia; Primary hypertension; Kidney insufficiency; Impaired fasting glucose; correction (current) use of anticoagulants; 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); Vitamin D deficiency; Encounter for therapeutic drug monitoring Acupuncture appointm ent Start: 09-15-2023 Telephone encounter Zeny Cleav er AUTISTIC TEACHER.DELIVERY CLERK Work Phone: [facility] [place] Comment on above: Orders Start: 09-11-2023 Telephone encounter Zeny Cleav er AUTISTIC TEACHER.DELIVERY CLERK Work Phone: [facility] [place] Comment on above: Anticoagulation Patient Update Start: 09-08-2023 Telephone encounter Zeny Cleav er AUTISTIC TEACHER.DELIVERY CLERK Work Phone: [facility] [place] Comment on above: Opened In Error Letter Start: 09-07-2023 Telephone encounter Zeny Cleav er AUTISTIC TEACHER.DELIVERY CLERK Work Phone: [facility] [place] Comment on above: Medication Problem Start: 09-06-2023 Refill Zeny Genaro AUTISTIC TEACHER.DELIVERY CLERK Work Phone: [facility] [place] Comment on above: Med Change Request Start: 09-04-2023 Telephone encounter Zeny Cleav er AUTISTIC TEACHER.DELIVERY CLERK Work Phone: [facility] [place] Comment on above: Anticoagulation Letter Start: 09-02-2023 Telephone encounter Zeny Cleav er AUTISTIC TEACHER.DELIVERY CLERK Work Phone: [facility] [place] Comment on above: Patient Question Start: 08-28-2023 Telephone encounter Zeny Cleav er AUTISTIC TEACHER.DELIVERY CLERK Work Phone: [facility] [place] Comment on above: Question Start: 08-27-2023 Telephone encounter Zeny Cleav er AUTISTIC TEACHER.DELIVERY CLERK Work Phone: [facility] [place] Comment on above: Patient Question Start: 08-27-2023 End: 08-27-2023 Patient encounter procedure Irene Moraes MD Work Phone: [facility] Comment on above: Compression fracture of L1 vertebra with routine healing, subsequent encounter; Chronic low back pain without sciatica, unspecified back pain laterality Start: 08-26-2023 Telephone encounter Zeny Cleav er AUTISTIC TEACHER.DELIVERY CLERK Work Phone: [facility] [place] Comment on above: Results Start: 08-25-2023 End: 08-25-2023 Subsequent hospital visit by physician Xr [facility] [place] Work Phone: Radiology Comment on above: SOB (shortness of br eath) [R06.02] Start: 08-25-2023 End: 08-25-2023 Patient encounter procedure Zeny Genaro AUTISTIC TEACHER.DELIVERY CLERK Work Phone: [facility] [place] Comment on above: Chronic low back sharon n without sciatica, unspecified back pain laterality (Primary Dx); Compression fracture of L1 vertebra with routine healing, subsequent encounter; Primary hypertension; SOB (shortness of breath); History of smoking; BPH with obstruction/lower urinary tract symptoms Start: 08-24-2023 Telephone encounter Zeny Cleav er AUTISTIC TEACHER.DELIVERY CLERK Work Phone: [facility] [place] Comment on above: Anticoagulation Start: 08-23-2023 ambulatory Zeny Genaro AUTISTIC TEACHER.DELIVERY CLERK Work Phone: [facility] [place] Comment on above: Update on my fall co ndition Start: 08-18-2023 Refill Zeny Genaro AUTISTIC TEACHER.DELIVERY CLERK Work Phone: [facility] [place] Comment on above: Refill Request Start: 08-14-2023 Telephone encounter Ezny Cleav er AUTISTIC TEACHER.DELIVERY CLERK Work Phone: [facility] [place] Comment on above: Anticoagulation Start: 08-12-2023 Refill Zeny Genaro AUTISTIC TEACHER.DELIVERY CLERK Work Phone: [facility] [place] Comment on above: Refill Request Start: 08-11-2023 Refill Zeny Genaro AUTISTIC TEACHER.DELIVERY CLERK Work Phone: [facility] [place] Comment on above: Refill Request Start: 08-10-2023 End: 08-10-2023 Patient encounter procedure Micah Portillo APRN.DELIVERY CLERK, DNP Work Phone: Urology Comment on above: Benign prostatic hyp erplasia with nocturia (Primary Dx) Start: 08-04-2023 Refill Zeny Genaro AUTISTIC TEACHER.DELIVERY CLERK Work Phone: [facility] [place] Comment on above: Refill Request Start: 07-30-2023 Telephone encounter Zeny Cleav er AUTISTIC TEACHER.DELIVERY CLERK Work Phone: [facility] Comment on above: Anticoagulation Start: 07-29-2023 ambulatory Zeny Genaro AUTISTIC TEACHER.DELIVERY CLERK Work Phone: [facility] [place] Comment on above: Off and on again Cum josias Start: 07-27-2023 End: 07-27-2023 Patient encounter procedure Zeny Genaro AUTISTIC TEACHER.DELIVERY CLERK Work Phone: [facility] [place] Comment on above: Compression fracture of L1 vertebra with routine healing, subsequent encounter (Primary Dx); Chronic low back pain without sciatica, unspecified back pain laterality; Acute bilateral low back pain with bilateral sciatica; Urinary dysfunction; Primary hypertension Start: 07-26-2023 Refill Zeny Genaro AUTISTIC TEACHER.DELIVERY CLERK Work Phone: [facility] [place] Comment on above: Refill Request Start: 07-23-2023 Refill Zeny Genaro AUTISTIC TEACHER.DELIVERY CLERK Work Phone: [facility] [place] Comment on above: Med Change Request Start: 07-21-2023 End: 07-21-2023 Patient encounter procedure Edgar Loaiza DO Work Phone: Vascular Surgery Comment on above: 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); PAD (peripheral artery disease) ([facility]) Start: 07-20-2023 Refill Zeny Genaro AUTISTIC TEACHER.DELIVERY CLERK Work Phone: [facility] [place] Comment on above: Refill Request Start: 07-19-2023 ambulatory Zeny Genaro AUTISTIC TEACHER.DELIVERY CLERK Work Phone: [facility] Start: 07-19-2023 Emergency department patient visit Zeny Genaro AUTISTIC TEACHER.DELIVERY CLERK Work Phone: [facility] [place] Comment on above: Physical therapist suad thomas emergency room back findings Start: 07-18-2023 End: 07-18-2023 Patient encounter procedure Franc Hills MD Work Phone: [facility] [place] Comment on above: Compression fracture of L1 vertebra with routine healing, subsequent encounter (Primary Dx); Chronic bilateral low back pain with bilateral sciatica; BPH with obstruction/lower urinary tract symptoms Start: 07-17-2023 Refill Zeny Genaro AUTISTIC TEACHER.DELIVERY CLERK Work Phone: [facility] [place] Comment on above: Refill Request Start: 07-17-2023 Refill Zeny Genaro AUTISTIC TEACHER.DELIVERY CLERK Work Phone: [facility] Comment on above: Refill Request Start: 07-16-2023 ambulatory Mckinley Leal MD Work Phone: [facility] Start: 07-16-2023 Emergency department patient visit Mckinley Leal MD Work Phone: Pain Management Comment on above: Back issues after vi sit to physical therapy and your emergency room Start: 07-15-2023 Telephone encounter Zeny Cleav er AUTISTIC TEACHER.DELIVERY CLERK Work Phone: [facility] Comment on above: Anticoagulation Start: 07-15-2023 End: 07-15-2023 ambulatory Brian Carvajal [facility] Comment on above: Chronic low back sharon n without sciatica, unspecified back pain laterality; Compression fracture of L1 vertebra with routine healing, subsequent encounter; Sciatic leg pain Start: 07-13-2023 Refill Zeny Genaro AUTISTIC TEACHER.DELIVERY CLERK Work Phone: [facility] Comment on above: Refill Request Start: 07-06-2023 Refill Zeny Genaro AUTISTIC TEACHER.DELIVERY CLERK Work Phone: [facility] [place] Comment on above: Patient Question; Re fill Request Start: 06-30-2023 Telephone encounter Zeny Cleav er AUTISTIC TEACHER.DELIVERY CLERK Work Phone: [facility] Comment on above: Anticoagulation Start: 06-29-2023 End: 06-29-2023 Patient encounter procedure Zeny Genaro AUTISTIC TEACHER.DELIVERY CLERK Work Phone: [facility] [place] Comment on above: Acute bilateral low back pain with bilateral sciatica (Primary Dx); Chronic low back pain without sciatica, unspecified back pain laterality; Compression fracture of L1 vertebra with routine healing, subsequent encounter Start: 06-24-2023 Telephone encounter Zeny Cleav er AUTISTIC TEACHER.DELIVERY CLERK Work Phone: [facility] [place] Comment on above: Patient Question; Ap pointment Start: 06-23-2023 Refill Zeny Genaro AUTISTIC TEACHER.DELIVERY CLERK Work Phone: [facility] [place] Comment on above: Patient Update; Refi ll Request Start: 06-19-2023 Telephone encounter Zeny Cleav er AUTISTIC TEACHER.DELIVERY CLERK Work Phone: [facility] [place] Comment on above: Anticoagulation Medication Question Start: 06-15-2023 End: 06-15-2023 Patient encounter procedure Sunny Mercedes MD Work Phone: Cardiology Comment on above: Screening for ischem ic heart disease (Primary Dx); Primary hypertension; Mixed hyperlipidemia; History of left-sided carotid endarterectomy; 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); PAD (peripheral artery disease) (HCC); Bilateral carotid artery stenosis Refill Request (ques tion ) Start: 06-15-2023 Refill Zeny Genaro AUTISTIC TEACHER.DELIVERY CLERK Work Phone: [facility] [place] Comment on above: Refill Request Start: 06-12-2023 Telephone encounter Zeny Cleav er AUTISTIC TEACHER.DELIVERY CLERK Work Phone: [facility] [place] Comment on above: back pain update Anticoagulation Start: 06-09-2023 ambulatory Zeny Genaro AUTISTIC TEACHER.DELIVERY CLERK Work Phone: [facility] [place] Comment on above: Back Brace Start: 06-08-2023 Refill Zeny Genaro AUTISTIC TEACHER.DELIVERY CLERK Work Phone: [facility] [place] Comment on above: Refill Request Start: 06-05-2023 Telephone encounter Zeny Cleav er AUTISTIC TEACHER.DELIVERY CLERK Work Phone: [facility] [place] Comment on above: Anticoagulation Start: 06-04-2023 ambulatory Zeny Genaro AUTISTIC TEACHER.DELIVERY CLERK Work Phone: [facility] [place] Comment on above: Disability parking p ass Start: 06-03-2023 End: 06-03-2023 Patient encounter procedure Mckinley Leal MD Work Phone: Pain Management Comment on above: Compression fracture of L1 vertebra, initial encounter ([facility]) (Primary Dx) Start: 06-03-2023 Telephone encounter Mckinley mullen MD Work Phone: Pain Management Comment on above: Orders (Back brace) Patient Update Start: 06-02-2023 ambulatory Zeny Genaro AUTISTIC TEACHER.DELIVERY CLERK Work Phone: [facility] [place] Comment on above: Dr. Leal Start: 05-29-2023 End: 05-29-2023 Refill Zeny Genaro AUTISTIC TEACHER.DELIVERY CLERK Work Phone: [facility] [place] Comment on above: Refill Request Lumbar pain [M54.50] Results Start: 05-26-2023 ambulatory Mckinley Leal MD Work Phone: Pain Management Comment on above: Back injury Start: 05-26-2023 Telephone encounter Zeny Cleav er AUTISTIC TEACHER.DELIVERY CLERK Work Phone: [facility] [place] Comment on above: Anticoagulation Start: 05-26-2023 End: 05-26-2023 Patient encounter procedure Edgar Loaiza DO Work Phone: Vascular Surgery Comment on above: 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); PAD (peripheral artery disease) ([facility]) Start: 05-23-2023 ambulatory Rosalia torre LPN NURSE IRONWORKER Comment on above: Question MRI WO Contrast Start: 05-21-2023 Refill Zeny Genaro AUTISTIC TEACHER.DELIVERY CLERK Work Phone: [facility] [place] Comment on above: Refill Request Start: 05-19-2023 Telephone encounter Zeny Cleav er AUTISTIC TEACHER.DELIVERY CLERK Work Phone: [facility] [place] Comment on above: Patient Question Anticoagulation Start: 05-18-2023 End: 05-18-2023 Patient encounter procedure Zeny Genaro AUTISTIC TEACHER.DELIVERY CLERK Work Phone: [facility] [place] Comment on above: Acute bilateral low back pain without sciatica (Primary Dx); Lumbar pain; Fall, subsequent encounter; 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) Start: 05-15-2023 Telephone encounter Zeny Cleav er AUTISTIC TEACHER.DELIVERY CLERK Work Phone: [facility] Comment on above: medication issue Start: 05-14-2023 ambulatory Zeny Genaro AUTISTIC TEACHER.DELIVERY CLERK Work Phone: [facility] [place] Comment on above: Fall Start: 05-14-2023 End: 05-14-2023 Emergency department patient visit Lisandro Mora Facility:[facility] Start: 05-13-2023 Refill Zeny Genaro AUTISTIC TEACHER.DELIVERY CLERK Work Phone: [facility] [place] Comment on above: Refill Request Start: 05-07-2023 ambulatory Zeny Genaro AUTISTIC TEACHER.DELIVERY CLERK Work Phone: [facility] [place] Comment on above: Lorazapam renewal. Start: 05-06-2023 Refill Zeny Genaro AUTISTIC TEACHER.DELIVERY CLERK Work Phone: [facility] [place] Comment on above: Refill Request Start: 03-24-2023 ambulatory Zney Genaro AUTISTIC TEACHER.DELIVERY CLERK Work Phone: [facility] [place] Comment on above: Low BP Start: 03-20-2023 Telephone encounter Zeny Cleav er AUTISTIC TEACHER.DELIVERY CLERK Work Phone: [facility] [place] Comment on above: Patient Question Start: 03-18-2023 Telephone encounter Mani zurita MD Work Phone: [facility] [place] Comment on above: Anticoagulation Start: 03-10-2023 Telephone encounter Zeny Cleav er AUTISTIC TEACHER.DELIVERY CLERK Work Phone: [facility] [place] Comment on above: Medication Problem Start: 03-04-2023 Telephone encounter Zeny Cleav er AUTISTIC TEACHER.DELIVERY CLERK Work Phone: [facility] [place] Comment on above: Anticoagulation Start: 03-02-2023 Telephone encounter Zeny Cleav er AUTISTIC TEACHER.DELIVERY CLERK Work Phone: [facility] [place] Comment on above: Orders Start: 02-27-2023 Telephone encounter Zeny Cleav er AUTISTIC TEACHER.DELIVERY CLERK Work Phone: [facility] [place] Comment on above: Results Start: 02-24-2023 End: 02-09-2024 Telephone encounter Micah Rosenberg MD Work Phone: General Surgery Comment on above: 04/20/2022 EGD [facility] Start: 02-23-2023 Telephone encounter Zeny Cleav er AUTISTIC TEACHER.DELIVERY CLERK Work Phone: [facility] [place] Comment on above: Patient Question Start: 02-18-2023 Telephone encounter Mani zurita MD Work Phone: [facility] [place] Comment on above: Anticoagulation Start: 02-10-2023 Telephone encounter Zeny Cleav er AUTISTIC TEACHER.DELIVERY CLERK Work Phone: [facility] [place] Comment on above: Patient Question Start: 02-08-2023 Refill Zeny Genaro AUTISTIC TEACHER.DELIVERY CLERK Work Phone: [facility] [place] Comment on above: Refill Request Don't refill my pres cription for Pantoprazole Start: 02-04-2023 Telephone encounter Zeny Cleav er AUTISTIC TEACHER.DELIVERY CLERK Work Phone: [facility] Comment on above: Anticoagulation Start: 01-29-2023 Refill Sara Baxter AUTISTIC TEACHER .DELIVERY CLERK Work Phone: [facility] [place] Comment on above: Refill Request Start: 01-23-2023 End: 01-23-2023 Patient encounter procedure Zeny Genaro AUTISTIC TEACHER.DELIVERY CLERK Work Phone: [facility] [place] Comment on above: Mixed hyperlipidemia (Primary Dx); 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); correction (current) use of anticoagulants; Acute gastritis without hemorrhage, unspecified gastritis type; History of left-sided carotid endarterectomy; Spinal stenosis of lumbar region, unspecified whether neurogenic claudication present; Primary hypertension Start: 01-22-2023 Telephone encounter Franc khan MD Work Phone: [facility] [place] Comment on above: Anticoagulation Start: 01-19-2023 End: 01-19-2023 Patient encounter procedure Mckinley Leal MD Work Phone: Pain Management Comment on above: Spinal stenosis of l umbar region, unspecified whether neurogenic claudication present (Primary Dx); Lumbar spondylosis Start: 01-16-2023 Refill Franc grissom MD Work Phone: [facility] [place] Comment on above: Medication Question Start: 01-14-2023 ambulatory Zeny Genaro AUTISTIC TEACHER.DELIVERY CLERK Work Phone: [facility] [place] Comment on above: My Chart Start: 01-14-2023 Telephone encounter Zeny Cleav er AUTISTIC TEACHER.DELIVERY CLERK Work Phone: [facility] [place] Comment on above: Anticoagulation Start: 01-12-2023 ambulatory Edgar David moses DO Work Phone: Vascular Surgery Comment on above: Rouvastatine dosage Start: 01-09-2023 Telephone encounter Franc khan MD Work Phone: [facility] [place] Comment on above: Anticoagulation Start: 01-07-2023 Telephone encounter Franc khan MD Work Phone: [facility] [place] Comment on above: Anticoagulation Start: 12-30-2022 Telephone encounter Zeny Cleav er AUTISTIC TEACHER.DELIVERY CLERK Work Phone: [facility] [place] Comment on above: Future Appointment Start: 12-29-2022 End: 12-29-2022 Patient encounter procedure Zeny Genaro AUTISTIC TEACHER.DELIVERY CLERK Work Phone: [facility] [place] Comment on above: Gastroesophageal ref lux disease without esophagitis (Primary Dx); Acute gastritis without hemorrhage, unspecified gastritis type Start: 12-29-2022 ambulatory Tammie Rg RN NURS E IRONWORKER Comment on above: Information Start: 12-25-2022 Telephone encounter Franc khan MD Work Phone: [facility] [place] Comment on above: Patient Question Start: 12-17-2022 ambulatory Mckinley Leal MD Work Phone: Pain Management Comment on above: New Covid Vaccine Start: 12-17-2022 Telephone encounter Franc khan MD Work Phone: [facility] [place] Comment on above: Patient Question Start: 12-14-2022 ambulatory Franc grissom MD Work Phone: [facility] [place] Comment on above: Cumadin dosage after Ablation Start: 12-10-2022 End: 12-10-2022 Patient encounter procedure Mckinley Leal MD Work Phone: Pain Management Comment on above: Lumbar spondylosis ( Primary Dx); Chronic low back pain without sciatica, unspecified back pain laterality; Hereditary and idiopathic peripheral neuropathy; Spinal stenosis of lumbar region, unspecified whether neurogenic claudication present Start: 12-09-2022 End: 12-09-2022 Patient encounter procedure Kvng Mcnamara MD Work Phone: Ophthalmology Comment on above: Macular hole of left eye (Primary Dx); Posterior vitreous detachment of right eye Start: 12-08-2022 Refill Sara Older AUTISTIC TEACHER LeighaDELIVERY CLERK Work Phone: [facility] [place] Comment on above: Refill Request Start: 12-04-2022 Telephone encounter Franc khan MD Work Phone: [facility] [place] Comment on above: Patient Question Start: 12-03-2022 Telephone encounter Mckinley mullen MD Work Phone: Pain Management Comment on above: Patient Update (Anti coagulation hold for 11/26/22) Anticoagulation Start: 12-02-2022 Telephone encounter Franc khan MD Work Phone: [facility] [place] Comment on above: Patient Update Start: 12-01-2022 Telephone encounter Franc khan MD Work Phone: [facility] [place] Start: 11-24-2022 End: 11-24-2022 Patient encounter procedure Franc Hills MD Work Phone: [facility] [place] Comment on above: Chronic low back sharon n without sciatica, unspecified back pain laterality (Primary Dx); Primary hypertension; Kidney insufficiency; Impaired fasting glucose Start: 11-18-2022 ambulatory Mckinley Leal MD Work Phone: Pain Management Comment on above: Past procedure and C PTs PATIENT PROCEDURE IN STRUCTIONS for 12/23/22 Start: 11-18-2022 E-mail encounter fro m caregiver Mckinley Leal MD Work Phone: [facility] Start: 11-12-2022 Telephone encounter Mckinley mullen MD Work Phone: Pain Management Comment on above: Appointment Start: 11-11-2022 Telephone encounter Franc khan MD Work Phone: [facility] [place] Comment on above: Patient Update Orders Anticoagulation Start: 11-10-2022 End: 11-10-2022 Patient encounter procedure Salas Johns MD Work Phone: [facility] [place] Comment on above: Chronic low back sharon n without sciatica, unspecified back pain laterality; Spinal stenosis of lumbar region, unspecified whether neurogenic claudication present Start: 11-07-2022 Telephone encounter Franc khan MD Work Phone: [facility] [place] Comment on above: Medication Update Re quest Start: 11-04-2022 Telephone encounter Franc khan MD Work Phone: [facility] [place] Comment on above: standing lab order f or INR Refill Request Start: 10-28-2022 Telephone encounter Franc khan MD Work Phone: [facility] [place] Comment on above: Anticoagulation Start: 10-14-2022 Telephone encounter Anticoag [facility] Work Phone: [facility] [place] Comment on above: Opened In Error Start: 10-13-2022 Refill Franc grissom MD Work Phone: [facility] [place] Comment on above: Refill Request; Refi ll Request Start: 09-30-2022 Telephone encounter Franc khan MD Work Phone: [facility] [place] Comment on above: Anticoagulation Start: 09-26-2022 Chart abstracting Unk Pcp (Hist) Elo esparza Start: 09-24-2022 Telephone encounter Franc khan MD Work Phone: [facility] [place] Comment on above: Results Start: 09-23-2022 ambulatory Franc grissom MD Work Phone: [facility] [place] Comment on above: Dr Ansari Start: 09-17-2022 Telephone encounter Franc khan MD Work Phone: [facility] [place] Comment on above: Anticoagulation Start: 09-11-2022 Telephone encounter Franc khan MD Work Phone: [facility] [place] Comment on above: Anticoagulation Start: 09-09-2022 Refill Franc grissom MD Work Phone: [facility] [place] Comment on above: Refill Request Start: 09-03-2022 Telephone encounter Franc khan MD Work Phone: [facility] [place] Comment on above: Anticoagulation Start: 08-11-2022 End: 08-11-2022 Patient encounter procedure Franc Hills MD Work Phone: [facility] [place] Comment on above: Chronic low back sharon n without sciatica, unspecified back pain laterality (Primary Dx); Primary hypertension; Impaired fasting glucose Start: 08-08-2022 End: 08-08-2022 Anticoagulant drug monitoring Mj Dos Santos MD Work Phone: Cardiology Comment on above: 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) (Primary Dx); History of left-sided carotid endarterectomy; Mixed hyperlipidemia; Primary hypertension; PAD (peripheral artery disease) (HCC); Anticoagulation management encounter Start: 08-08-2022 End: 08-08-2022 Telemedicine consultation with patient Mj Dos Santos MD Work Phone: [facility] Start: 08-06-2022 Telephone encounter Franc khan MD Work Phone: [facility] [place] Comment on above: Anticoagulation Start: 07-30-2022 Telephone encounter Franc khan MD Work Phone: [facility] [place] Comment on above: Anticoagulation Start: 07-28-2022 Telephone encounter Franc khan MD Work Phone: [facility] [place] Comment on above: Patient Question Start: 07-16-2022 Telephone encounter Franc khan MD Work Phone: [facility] [place] Comment on above: Anticoagulation Start: 07-09-2022 Telephone encounter Franc khan MD Work Phone: [facility] [place] Comment on above: Anticoagulation Start: 07-02-2022 Telephone encounter Franc khan MD Work Phone: [facility] [place] Comment on above: Anticoagulation Start: 06-18-2022 Telephone encounter Franc khan MD Work Phone: [facility] [place] Comment on above: Anticoagulation Start: 06-17-2022 Refill Franc grissom MD Work Phone: [facility] [place] Comment on above: Refill Request Start: 06-06-2022 Telephone encounter Franc khan MD Work Phone: [facility] [place] Comment on above: Patient Update Start: 06-03-2022 Telephone encounter Franc khan MD Work Phone: [facility] [place] Comment on above: Anticoagulation Start: 06-02-2022 End: 06-02-2022 Patient encounter procedure Franc Hills MD Work Phone: [facility] [place] Start: 06-02-2022 End: 06-02-2022 Refill Franc Hills MD Work Phone: [facility] [place] Comment on above: Refill Request Medicare annual [facility], subsequent (Primary Dx); PAD (peripheral artery disease) (HCC); Chronic low back pain without sciatica, unspecified back pain laterality; Primary hypertension; Mixed hyperlipidemia; 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); Impaired fasting glucose Start: 05-31-2022 Refill Sara Baxter APRN, .CNP Work Phone: [facility] [place] Comment on above: Refill Request Start: 05-26-2022 Telephone encounter Mj waddell MD Work Phone: Vascular Medicine Comment on above: Phone call to tommy tolentino (Re: Scheduling ECHO) Start: 05-22-2022 Telephone encounter Franc khan MD Work Phone: Internal Medicine [place] Comment on above: Anticoagulation Start: 05-21-2022 Telephone encounter Franc khan MD Work Phone: [facility] [place] Comment on above: Lab Orders Orders Start: 05-18-2022 Orders Only Mj nayak MD Work Phone: Cardiology Comment on above: 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) (Primary Dx); Mixed hyperlipidemia; Primary hypertension Start: 05-08-2022 Telephone encounter Franc khan MD Work Phone: [facility] [place] Comment on above: Anticoagulation Start: 04-23-2022 Telephone encounter Franc khan MD Work Phone: [facility] [place] Comment on above: Anticoagulation Start: 04-21-2022 Telephone encounter Franc khan MD Work Phone: [facility] [place] Comment on above: Coumadin instruction request Start: 04-16-2022 Telephone encounter Franc khan MD Work Phone: Internal Medicine [place] Comment on above: Anticoagulation Start: 04-11-2022 Telephone encounter Franc khan MD Work Phone: Internal Medicine [place] Comment on above: Anticoagulation Start: 04-11-2022 End: 04-11-2022 [facility] [place] Comment on above: correction (current) use of anticoagulants (Primary Dx); 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) Start: 04-10-2022 ambulatory Franc grissom MD Work Phone: Internal Medicine [place] Comment on above: My Lisinopril /HCTZ prescription. Start: 04-06-2022 ambulatory Franc grissom MD Work Phone: [facility] [place] Comment on above: My Potassium prescri ption Start: 04-04-2022 Refill Franc grissom MD Work Phone: [facility] [place] Comment on above: Refill Request Start: 04-01-2022 Telephone encounter Franc khan MD Work Phone: Internal Medicine [place] Comment on above: Anticoagulation (/) Start: 03-24-2022 End: 03-24-2022 Admission to same day surgery center [facility] Start: 03-24-2022 End: 03-24-2022 ambulatory [facility] Work Phone: Start: 03-20-2022 Telephone encounter Franc khan MD Work Phone: Internal Medicine [place] Comment on above: Patient Update Start: 03-18-2022 Telephone encounter Franc khan MD Work Phone: Family Medicine [place] Comment on above: Back Pain Start: 03-17-2022 Patient Msg [facility] Provider [facility] [place] Comment on above: Refill request Start: 03-13-2022 Telephone encounter Franc khan MD Work Phone: Family Medicine [place] Comment on above: Results Start: 03-11-2022 Refill Franc grissom MD Work Phone: Internal Medicine [place] Comment on above: Refill Request; Imelda ent Update Start: 03-06-2022 End: 03-06-2022 Anticoagulant drug monitoring [facility] [place] Comment on above: correction (current) use of anticoagulants (Primary Dx); 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) Start: 02-18-2022 Telephone encounter Franc [facility]han [facility] [place] Comment on above: Orders (protime) Start: 02-18-2022 End: 02-18-2022 Anticoagulant drug monitoring [facility] Work [facility]: [facility] [place] Comment on above: correction (current) use of anticoagulants (Primary Dx); 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) Start: 02-11-2022 Telephone encounter Franc khan MD Work Phone: Internal Medicine [place] Comment on above: Patient Update Start: 02-03-2022 Telephone encounter Mani zurita MD Work Phone: Internal Medicine [place] Comment on above: Medication Problem Start: 02-03-2022 End: 02-03-2022 Patient encounter procedure Bonnie Sharif APRN.KAI WHAKARURUHAU Work Phone: Internal Medicine [place] Comment on above: Primary hypertension (Primary Dx); 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; 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); Chronic low back pain without sciatica, unspecified back pain laterality Start: 02-01-2022 ambulatory Franc grissom MD Work Phone: Internal Medicine [place] Comment on above: Question regarding P ROTHROMBIN TIME/PT(INR INCL.) Start: 01-31-2022 Telephone encounter Franc khan MD Work Phone: Internal Medicine [place] Comment on above: Anticoagulation Start: 01-24-2022 Telephone encounter Franc khan MD Work Phone: Internal Medicine [place] Comment on above: Anticoagulation Start: 01-22-2022 Telephone encounter Franc khan MD Work Phone: [facility] [place] Comment on above: FYI-No Action Needed Start: 01-15-2022 Telephone encounter Franc khan MD Work Phone: [facility] [place] Comment on above: Patient Question Start: 01-13-2022 Telephone encounter Franc khan MD Work Phone: Internal Medicine [place] Comment on above: Patient Question; Pa tient Update Start: 01-08-2022 Telephone encounter Franc khan MD Work Phone: Family Medicine [place] Comment on above: Anticoagulation (P t requesting INR results/instructions to be left on his VM) Start: 01-06-2022 Telephone encounter Franc khan MD Work Phone: Internal Medicine [place] Comment on above: Patient Question Start: 01-03-2022 Telephone encounter Franc khan MD Work Phone: [facility] [place] Comment on above: Patient Update Start: 12-31-2021 Telephone encounter Franc khan MD Work Phone: [facility] [place] Comment on above: Faxed Form Patient Request Start: 12-25-2021 Telephone encounter Franc khan MD Work Phone: Internal Medicine [place] Comment on above: Anticoagulation Start: 12-19-2021 End: 12-19-2021 ambulatory Iglesia Ansari MD Work Phone: Vascular Surg Dept Comment on above: 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) Start: 12-19-2021 End: 12-19-2021 Telemedicine consultation with patient Iglesia nAsari MD Work Phone: [facility] Start: 12-18-2021 Telephone encounter Iglesia Mcdonald se, MD Work Phone: Vascular Surg Dept Comment on above: Results Start: 12-17-2021 Refill Sara AhujaDELIVERY CLERK Work Phone: Internal Medicine [place] Comment on above: Refill Request Start: 12-12-2021 Telephone encounter Kvng Mcnamara MD Work Phone: Ophthalmology Comment on above: Patient Question Start: 12-11-2021 Telephone encounter Franc khan MD Work Phone: Internal Medicine [place] Comment on above: Patient Request Anticoagulation Start: 12-10-2021 End: 12-10-2021 Patient encounter procedure Kvng Mcnamara MD Work Phone: Ophthalmology Comment on above: Macular hole of left eye (Primary Dx) Start: 11-27-2021 Refill Franc grissom MD Work Phone: Internal Medicine [place] Comment on above: Refill Request Anticoagulation Start: 11-24-2021 Refill Franc grissom MD Work Phone: [facility] Medicine [place] Comment on above: Refill Request Start: 11-14-2021 Telephone encounter Franc khan MD Work Phone: Internal Medicine [place] Comment on above: Anticoagulation Start: 11-13-2021 End: 11-13-2021 Office outpatient visit 25 minutes Franc Hills MD Work Phone: Internal Medicine [place] Comment on above: Primary hypertension (Primary Dx); correction (current) use of anticoagulants; Mixed hyperlipidemia; Screening for prostate cancer; Chronic low back pain without sciatica, unspecified back pain laterality Start: 11-12-2021 End: 11-12-2021 Patient encounter procedure Micah Rosenberg MD Work Phone: General Surgery Comment on above: Personal history of colonic polyps (Primary Dx) Start: 11-01-2021 Telephone encounter Franc khan MD Work Phone: Internal Medicine [place] Comment on above: Anticoagulation Start: 10-25-2021 Telephone encounter Iglesia Mcdonald se, MD Work Phone: Vascular Surg Dept Comment on above: Patient Question Start: 10-16-2021 End: 10-16-2021 Patient encounter procedure Franc Hills MD Work Phone: Internal Medicine [place] Comment on above: Fall, subsequent enc ounter (Primary Dx); Chronic low back pain without sciatica, unspecified back pain laterality; Closed head injury, subsequent encounter; Neck pain on right side; 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) Start: 10-16-2021 Telephone encounter Franc khan MD Work Phone: Internal Medicine [place] Comment on above: Anticoagulation Start: 10-03-2021 Telephone encounter Franc khan MD Work Phone: Internal Medicine [place] Comment on above: Anticoagulation Start: 10-01-2021 Refill Sara Older AUTISTIC TEACHER .DELIVERY CLERK Work Phone: Internal Medicine [place] Comment on above: Refill Request Start: 09-28-2021 ambulatory Franc grissom MD Work Phone: [facility] Start: 09-28-2021 End: 09-28-2021 [facility] Emergency room visit Start: 09-23-2021 Telephone encounter Franc khan MD Work Phone: Internal Medicine [place] Comment on above: Insurance Authorizat ion Start: 09-23-2021 End: 09-23-2021 Patient encounter procedure Teri Gruber APRN.DELIVERY CLERK Work Phone: Family Medicine [place] Comment on above: Pain in gums (Primar y Dx); Periodontal disease; Chronic low back pain without sciatica, unspecified back pain laterality Start: 09-20-2021 Refill Franc grissom MD Work Phone: Internal Medicine [place] Comment on above: Refill Request Start: 09-18-2021 Telephone encounter Franc khan MD Work Phone: Internal Medicine [place] Comment on above: Anticoagulation Start: 09-04-2021 Telephone encounter Franc khan MD Work Phone: Family [facility] [place] Comment on above: Medication Question Anticoagulation Start: 08-23-2021 Telephone encounter Franc khan MD Work Phone: Internal Medicine [place] Comment on above: Patient Update Start: 08-22-2021 End: 08-22-2021 Patient encounter procedure Franc Hills MD Work Phone: Internal Medicine [place] Comment on above: Eustachian tube dysf unction, right (Primary Dx); Primary hypertension; 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) Start: 08-22-2021 Telephone encounter Franc khan MD Work Phone: Internal Medicine [place] Comment on above: Anticoagulation Start: 08-20-2021 Telephone encounter Franc khan MD Work Phone: Family Medicine [place] Comment on above: Results, Lab (Home C ovid Test) Start: 08-16-2021 End: 08-16-2021 Patient encounter procedure Mj Dos Santos MD Work Phone: Cardiology Comment on above: 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) (Primary Dx); History of left-sided carotid endarterectomy; Mixed hyperlipidemia; Primary hypertension; PAD (peripheral artery disease) (HCC) Start: 08-14-2021 Telephone encounter Franc khan MD Work Phone: Internal Medicine [place] Comment on above: Patient Question Start: 08-07-2021 Telephone encounter Franc khan MD Work Phone: Internal Medicine [place] Comment on above: Anticoagulation Refill Request Start: 07-24-2021 Telephone encounter Franc khan MD Work Phone: Internal Medicine [place] Comment on above: Anticoagulation Start: 07-11-2021 Telephone encounter Sara Older AUTISTIC TEACHER.DELIVERY CLERK Work Phone: Family Medicine [place] Comment on above: Ear Problem Start: 07-10-2021 Telephone encounter Franc khan MD Work Phone: Internal Medicine [place] Comment on above: Anticoagulation Start: 07-03-2021 End: 07-03-2021 Patient encounter procedure Sara Older AUTISTIC TEACHER.DELIVERY CLERK Work Phone: Internal Medicine [place] Comment on above: Suppurative otitis m edia of right ear, unspecified chronicity (Primary Dx) Start: 06-27-2021 Telephone encounter Franc khan MD Work Phone: Internal Medicine [place] Comment on above: Anticoagulation Start: 01-13-2020 End: 01-13-2020 Subsequent hospital visit by physician Mala [facility] [place] Work Phone: Radiology Comment on above: Wrist injuries, righ t, initial encounter [S69.91XA] Procedures Date Procedure Procedure Detail Performing Clinician Start: 08-11-2024 Computerized ophthalmic imaging retina Kvng Mcnamara MD Work Phone: Start: 08-04-2024 Nitric oxide gas determination Zeny Lam AUTISTIC TEACHER.DELIVERY CLERK Work Phone: Start: 08-04-2024 Brncdilat rspse spmtry pre&post-brncdilat admn Zeny Lam AUTISTIC TEACHER.DELIVERY CLERK Work Phone: Start: 07-18-2024 Myocardial spect multiple studies Teri Gruber AUTISTIC TEACHER.DELIVERY CLERK Work Phone: Start: 03-10-2024 Prothrombin time [facility] Provider Start: 02-29-2024 Ct head/brain w/o contrast material Zeny Elizabethr AUTISTIC TEACHER.DELIVERY CLERK Work Phone: Start: 01-06-2024 Adult depression screening assessment Zeny Lam AUTISTIC TEACHER.DELIVERY CLERK Work Phone: Start: 12-28-2023 Prothrombin time Zeny Genaro AUTISTIC TEACHER.DELIVERY CLERK Work Phone: Start: 11-16-2023 Urnls dip stick/tablet rgnt auto w/o microscopy Micah Portillo AUTISTIC TEACHER.DELIVERY CLERK, DNP Work Phone: Start: 11-10-2023 Prothrombin time [facility] Provider Start: 10-05-2023 Prothrombin time [facility] Provider Start: 09-04-2023 Prothrombin time [facility] Provider Start: 08-25-2023 Radiologic exam chest 2 views Zeny Genaro AUTISTIC TEACHER.DELIVERY CLERK Work Phone: Start: 08-24-2023 Prothrombin time [facility] Provider Start: 07-30-2023 Prothrombin time [facility] Provider Start: 07-15-2023 Prothrombin time [facility] Provider Start: 06-30-2023 Prothrombin time [facility] Provider Start: 06-19-2023 PROTHROMBIN TIME/PT [facility] Provider Start: 06-05-2023 PROTHROMBIN TIME/PT [facility] Provider Start: 05-29-2023 Mri spinal canal lumbar w/o contrast material Zeny Genaro AUTISTIC TEACHER.DELIVERY CLERK Work Phone: Start: 05-26-2023 PROTHROMBIN TIME/PT [facility] Provider Start: 03-18-2023 PROTHROMBIN TIME/PT Franc Hills MD Work Phone: Start: 02-04-2023 PROTHROMBIN TIME/PT [facility] Provider Start: 01-14-2023 PROTHROMBIN TIME/PT [facility] Provider Start: 01-07-2023 PROTHROMBIN TIME/PT [facility] Provider Start: 12-09-2022 Computerized ophthalmic imaging retina Kvng Mcnamara MD Work Phone: Start: 12-03-2022 PROTHROMBIN TIME/PT [facility] Provider Start: 11-11-2022 PROTHROMBIN TIME/PT [facility] Provider Start: 10-28-2022 PROTHROMBIN TIME/PT [facility] Provider Start: 06-14-2023 PROTHROMBIN TIME/PT [facility] Provider Start: 07-30-2022 PROTHROMBIN TIME/PT [facility] Provider Start: 06-18-2022 PROTHROMBIN TIME/PT [facility] Provider Start: 05-22-2022 PROTHROMBIN TIME/PT [facility] Provider Start: 05-08-2022 PROTHROMBIN TIME/PT [facility] Provider Start: 04-01-2022 PROTHROMBIN TIME/PT [facility] Provider Start: 03-24-2022 Colonoscopy Start: 02-18-2022 Prothrombin time [facility] Provider Start: 01-08-2022 INR in Platelet poor plasma by Coagulation assay Franc Hills MD Work Phone: Start: 12-10-2021 Computerized ophthalmic imaging retina Kvng Mcnamara MD Work Phone: Start: 11-13-2021 Adult depression screening assessment Franc Hills MD Work Phone: Start: 09-28-2021 CT of head without contrast Start: 09-04-2021 PROTHROMBIN TIME/PT Franc Hills MD Work Phone: Start: 08-07-2021 PROTHROMBIN TIME/PT [facility] Provider Start: 07-10-2021 PROTHROMBIN TIME/PT [facility] Provider Start: 07-09-2020 Adult depression screening assessment Franc Hills MD Work Phone: Start: 01-13-2020 Radex wrist complete minimum 3 views Kvng Freire APRN.DELIVERY CLERK Work Phone: Start: 06-10-2019 History of carotid endarterectomy History of left-sided carotid endarterectomy Franc Hills MD Work Phone: History of carotid endarterectomy History of left-sided carotid endarterectomy Mj Dos Santos MD Work Phone: History of carotid endarterectomy History of left-sided carotid endarterectomy Mj Dos Santos MD Work Phone: History of carotid endarterectomy History of left-sided carotid endarterectomy Zeny Lam APRN.DELIVERY CLERK Work Phone: History of carotid endarterectomy History of left-sided carotid endarterectomy Sunny Mercedes MD Work Phone: History of carotid endarterectomy History of left-sided carotid endarterectomy Sunny Mercedes MD Work Phone: Plan of Treatment Date Care Activity Detail Author Start: 01-10-2031 Urine microalbumin profile [facility] Start: 11-10-2027 Diabetes Screening Diabetes Screening [facility] Start: 10-22-2027 Urine microalbumin profile DTAP,TDAP,TD (2 - Td or Tdap) [facility] Start: 08-11-2027 Diabetes Screening Diabetes Screening [facility] Start: 02-08-2027 Diabetes Screening Diabetes Screening [facility] Start: 12-13-2026 Diabetes Screening Diabetes Screening [facility] Start: 09-07-2026 Diabetes Screening Diabetes Screening [facility] Start: 07-14-2026 Diabetes Screening Diabetes Screening [facility] Start: 06-04-2026 Diabetes Screening Diabetes Screening [facility] Start: 02-25-2026 Diabetes Screening Diabetes Screening [facility] Start: 01-14-2026 Diabetes Screening Diabetes Screening [facility] Start: 08-18-2025 DIABETES SCREEN DIABETES SCREEN [facility] Start: 08-18-2025 Diabetes Screening Diabetes Screening [facility] Start: 08-15-2025 Annual PCP Team Chronic Disease Visit Annual PCP Team Chronic Disease Visit [facility] Start: 08-15-2025 BP Controlled (<130/80) BP Controlled (<130/80) [facility] in Start: 07-30-2025 DIABETES SCREEN DIABETES SCREEN [facility] Start: 07-25-2025 Annual PCP Team Chronic Disease Visit Annual PCP Team Chronic Disease Visit [facility] Start: 07-25-2025 BP Controlled (<130/80) BP Controlled (<130/80) [facility] Start: 07-25-2025 End: 07-25-2025 Patient encounter procedure 07/25/2025 10:45 AM EDT Office Visit [facility] Ophthalmology [address] [facility] [address] [address] Kvng Mcnamara MD [address] [place] [address] Diagnostics, [facility] [address] [facility] [address], [place] [address] Return in one year Ophthalmology Comment on above: Return in one year Start: 06-12-2025 End: 06-12-2025 Patient encounter procedure 06/12/2025 1:20 PM EDT Office Visit Cardiology [address] [place] [address] Sunny Mercedes MD [address] [place] [address] 9 month follow up Cardiology Comment on above: 9 month follow up Start: 06-08-2025 Annual PCP Team Chronic Disease Visit Annual PCP Team Chronic Disease Visit [facility] Start: 06-08-2025 BP Controlled (<130/80) BP Controlled (<130/80) [facility] Start: 05-26-2025 DIABETES SCREEN DIABETES SCREEN [facility] Start: 05-24-2025 BP Controlled (<130/80) BP Controlled (<130/80) [facility] Start: 05-17-2025 Annual PCP Team Chronic Disease Visit Annual PCP Team Chronic Disease Visit [facility] Start: 05-17-2025 BP Controlled (<130/80) BP Controlled (<130/80) [facility] Start: 02-14-2025 Annual PCP Team Chronic Disease Visit Annual PCP Team Chronic Disease Visit [facility] Start: 01-19-2025 Annual PCP Team Chronic Disease Visit Annual PCP Team Chronic Disease Visit [facility] Start: 01-17-2025 End: 01-17-2025 Patient encounter procedure 01/17/2025 11:40 AM EDT Office Visit [facility] [place] [address] [place] [address] Teri Gruber APRN.DELIVERY CLERK [address] [facility] [place] [address] 2 month follow-up, Patient wanting to establish with Adolfo, wants to talk to GRAIN SACKER first [facility] Medicine [place] Comment on above: 2 month follow-up, Patient wanting to es tablish with Yasmani/John, wants to talk to GRAIN SACKER first Start: 01-05-2025 Annual PCP Team Chronic Disease Visit Annual PCP Team Chronic Disease Visit [facility] Start: 01-05-2025 Anxiety Screening Anxiety Screening [facility] Start: 01-05-2025 BP Controlled (<130/80) BP Controlled (<130/80) [facility] Start: 01-05-2025 Depression Screening Depression Screening [facility] Start: 12-23-2024 End: 12-23-2024 Patient encounter procedure 12/23/2024 2:15 PM EDT Appointment Radiology [address] [place] [id number] Screening for osteoporosis [Z13.820 Radiology Comment on above: Screening for osteoporosis [Z13.820 Start: 12-16-2024 End: 12-16-2024 Patient encounter procedure 12/16/2024 1:30 PM EDT Office Visit Pulmonary Medicine [address] [place] [address] Shruti Carrington APRN.DELIVERY CLERK [address] [place] [address] 8 wk f/u Pulmonary Medicine Comment on above: 8 wk f/u Start: 12-16-2024 End: 12-16-2024 ambulatory 12/16/2024 1:15 PM EDT Procedure PULM LAB [facility] [address] [place] [address] Wstr, Pulm Lab [facility] [address] [place] [address] Mild persistent asthma without complication (HCC) [J45.30] PULM LAB [facility] Comment on above: Mild persistent asthma without complicat ion (HCC) [J45.30] Start: 12-13-2024 Annual PCP Team Chronic Disease Visit Annual PCP Team Chronic Disease Visit [facility] Start: 12-06-2024 End: 12-06-2024 Patient encounter procedure Vasculary Surgery Comment on above: (peripheral artery disease) (HCC) [I73.9 ] 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 Urology Comment on above: 1 YR F/U BPH. Start: 11-23-2024 End: 11-23-2024 ambulatory 11/23/2024 11:15 AM EDT Results Only [place] Fernandezwn [facility] [address] [place] [address] PT/INR [place] [facility] Comment on above: PT/INR Start: 11-15-2024 BP Controlled (<130/80) BP Controlled (<130/80) [facility] Start: 11-15-2024 End: 11-15-2024 Patient encounter procedure 11/15/2024 1:20 PM EDT Office Visit Internal Medicine [place] [address] [place] [address] Zeny Lam APRN.DELIVERY CLERK [address] [place] [address] 3 month follow up Internal Medicine [place] Comment on above: 3 month follow up Start: 11-09-2024 End: 11-09-2024 ambulatory 11/09/2024 11:30 AM EDT Results Only [place] Fernandezwn [facility] [address] [place] [address] PT/INR--PROTHROMBIN TIME [PT] [place] [facility] Comment on above: PT/INR--PROTHROMBIN TIME [PT] Start: 11-04-2024 End: 11-04-2024 Patient encounter procedure 11/04/2024 2:15 PM EDT Appointment Radiology [address] [place] [id number] Screening for osteoporosis [Z13.820 Radiology Comment on above: Screening for osteoporosis [Z13.820 Start: 11-01-2024 DIABETES SCREEN DIABETES SCREEN [facility] Start: 10-28-2024 End: 10-28-2024 ambulatory [place] [facility] Comment on above: PT/INR Start: 10-20-2024 End: 01-19-2025 ALGN CARRIE GRP [facility] Comment on above: Expected: 10/20/2024, Expires: Start: 10-20-2024 End: 01-19-2025 IgE [Units/volume] in Serum or Plasma [facility] Comment on above: Expected: 10/20/2024, Expires: Start: 10-20-2024 End: 11-19-2025 XR Chest PA and Lateral [facility] Work Phone: Comment on above: Expected: 10/20/2024, Expires: Start: 10-20-2024 End: 10-20-2024 Patient encounter procedure 10/20/2024 1:30 PM EDT Office Visit Pulmonary Medicine [address] [place] [address] Mirlande Funez MD [address] [place] [address] Shortness of breath [R06.02] Pulmonary Medicine Comment on above: Shortness of breath [R06.02] Start: 10-14-2024 End: 10-14-2024 ambulatory 10/14/2024 11:15 AM EDT Results Only [place] [facility] [address] [place] [address] PT/INR [place] [facility] Comment on above: PT/INR Start: 10-11-2024 End: 10-11-2024 Patient encounter procedure 10/11/2024 1:00 PM EDT Office Visit Podiatry [address] [place] [address] Gayle Green [address] [place] [address] 10 week follow up nail care Podiatry Comment on above: 10 week follow up nail care Start: 10-05-2024 End: 10-05-2024 ambulatory 10/05/2024 11:00 AM EDT Results Only [place] [facility] [address] [place] [address] INR [place] [facility] Comment on above: INR Start: 10-04-2024 End: 10-04-2024 Patient encounter procedure 10/04/2024 2:00 PM EDT Office Visit Integrative Medicine [address] [place] [address] Walt [address] [place] [address] ACUPUNCTURE Integrative Medicine Comment on above: ACUPUNCTURE Start: 09-21-2024 End: 09-21-2024 ambulatory 09/21/2024 11:30 AM EDT Results Only [place] Fernandezwn [facility] [address] [place] [address] lab-INR [place] [facility] Comment on above: lab-INR Start: 09-20-2024 End: 09-20-2024 Patient encounter procedure 09/20/2024 2:00 PM EDT Office Visit Integrative Medicine [address] [place] [address] Walt Yang R Ac [address] [facility] [place] [address] ACUPUNCTURE Integrative Medicine Comment on above: ACUPUNCTURE Start: 09-19-2024 End: 12-19-2024 CBC W Auto Differential panel - Blood COMPLETE BLOOD COUNT AND DIFFERENTIAL Lab Routine Encounter for therapeutic drug monitoring Expected: 09/19/2024, Expires: 12/19/2024 [facility] Work Phone: Comment on above: Expected: 09/19/2024, Expires: Start: 09-19-2024 End: 12-19-2024 Comprehensive metabolic 2000 panel - Serum or Plasma COMPREHENSIVE METABOLIC PANEL Lab Routine Encounter for therapeutic drug monitoring Expected: 09/19/2024, Expires: 12/19/2024 [facility] Comment on above: Expected: 09/19/2024, Expires: Start: 09-19-2024 End: 12-19-2024 Hemoglobin A1c in Blood HEMOGLOBIN A1C Lab Routine IFG (impaired fasting glucose) Expected: 09/19/2024, Expires: 12/19/2024 [facility] Comment on above: Expected: 09/19/2024, Expires: Start: 09-19-2024 End: 12-19-2024 TOXICOLOGY SCREEN, ROUTINE URINE TOXICOLOGY SCREEN, ROUTINE URINE Lab Routine Encounter for therapeutic drug monitoring Expected: 09/19/2024, Expires: 12/19/2024 [facility] Comment on above: Expected: 09/19/2024, Expires: Start: 09-14-2024 Annual PCP Team Chronic Disease Visit Annual PCP Team Chronic Disease Visit [facility] Start: 09-14-2024 BP Controlled (<130/80) BP Controlled (<130/80) [facility] in Start: 09-08-2024 End: 09-08-2024 Patient encounter procedure 09/08/2024 2:00 PM EDT Office Visit Integrative Medicine [address] [place] [address] Walt Yang R [address] [facility] [place] [address] ACUPUNCTURE Integr[facility] Medicine Comment on above: ACUPUNCTURE Start: 09-07-2024 End: 09-07-2024 ambulatory 09/07/2024 11:30 AM EDT Results Only [place] Fernandezwn [facility] [address] [place] [address] inr [facility] Comment on above: inr Start: 08-24-2024 Annual PCP Team Chronic Disease Visit Annual PCP Team Chronic Disease Visit [facility] Start: 08-24-2024 BP Controlled (<130/80) BP Controlled (<130/80) [facility] Start: 08-24-2024 End: 08-24-2024 ambulatory 08/24/2024 11:00 AM EDT Results Only [place] [facility] [address] [place] [address] [facility] Comment on above: INR Start: 08-23-2024 End: 08-23-2024 Patient encounter procedure 08/23/2024 2:00 PM EDT Office Visit Integrative Medicine [address] [place] [address] Walt Yang R Ac [address] [place] [address] ACUPUNCTURE Integr[facility] Medicine Comment on above: ACUPUNCTURE Start: 08-15-2024 End: 08-15-2024 Patient encounter procedure Internal Medicine [place] Comment on above: Medicare wellness exam Start: 08-11-2024 End: 08-11-2024 Patient encounter procedure Ophthalmology Comment on above: Vision changes Start: 08-10-2024 End: 08-10-2024 ambulatory 08/10/2024 11:00 AM EDT Results Only [place] [facility] [address] [place] [address] INR [facility] Comment on above: INR Start: 08-09-2024 BP Controlled (<130/80) BP Controlled (<130/80) [facility] Start: 08-09-2024 End: 08-09-2024 Patient encounter procedure 08/09/2024 2:00 PM EDT Office Visit Integrative Medicine [address] [place] [address] Walt Yang R Ac [address] [place] [address] ACUPUNCTURE Integrative Medicine Comment on above: ACUPUNCTURE Start: 08-08-2024 End: 11-07-2024 Creatinine and Glomerular filtration rate.predicted panel - Serum, Plasma or Blood CREATININE BLD Lab Routine Shortness of breath Expected: 08/08/2024, Expires: 11/07/2024 [facility] Comment on above: Expected: 08/08/2024, Expires: Start: 08-08-2024 End: 08-08-2024 Patient encounter procedure 08/08/2024 1:00 PM EDT Office Visit Cardiology [address] [place] [address] Sunny Mercedes MD [address] [place] [address] 1 yr follow up Cardiology Comment on above: 1 yr follow up Start: 08-04-2024 End: 08-04-2024 ambulatory PULM LAB [facility] Comment on above: Shortness of breath [R06.02] Start: 07-28-2024 End: 07-28-2024 Patient encounter procedure Podiatry Comment on above: 10 week follow up nail care Start: 07-27-2024 End: 07-27-2024 ambulatory 07/27/2024 11:15 AM EDT Results Only [place] [facility] [address] [place] [address] [facility] Comment on [facility]: [facility]R Start: 07-26-2024 End: 07-26-2024 Patient encounter procedure Integrative Medicine Comment on above: Chronic lower back pain. Sign AFR* Start: 07-26-2024 Annual PCP Team Chronic Disease Visit Annual PCP Team Chronic Disease Visit [facility] Start: 07-26-2024 BP Controlled (<130/80) BP Controlled (<130/80) [facility] Start: 07-25-2024 End: 07-25-2024 Patient encounter procedure 07/25/2024 11:20 AM EDT Office Visit Internal Medicine [place] [address] [place] [address] Zeny Lam APRN.DELIVERY CLERK [address] [place] [address] follow up stress test results Internal Medicine [place] Comment on above: follow up stress test results Start: 07-20-2024 BP Controlled (<130/80) BP Controlled (<130/80) [facility] Start: 07-18-2024 End: 07-18-2024 Nursing evaluation of patient and report 07/18/2024 8:45 AM EDT Nurse Visit Cardiology [address] [place] [address] Wstr, Nurse Card [address] [place] [address] : Shortness of breath [R06.02] Cardiology Comment on above: : Shortness of breath [R06.02] Start: 07-18-2024 End: 07-18-2024 Patient encounter procedure Nuclear Medicine Comment on above: : Shortness of breath [R06.02] Start: 07-17-2024 Annual PCP Team Chronic Disease Visit Annual PCP Team Chronic Disease Visit [facility] Start: 07-17-2024 BP Controlled (<130/80) BP Controlled (<130/80) [facility] Start: 07-13-2024 End: 07-13-2024 ambulatory 07/13/2024 11:00 AM EDT Results Only [place] Fernandezwn [facility] [address] [place] [address] LABS [place] [facility] Comment on above: LABS Start: 07-12-2024 Covid-19 Vaccine ( season) Covid-19 Vaccine () [facility] Start: 06-29-2024 End: 06-29-2024 ambulatory 06/29/2024 11:30 AM EDT Results Only [place] Fernandezwn [facility] [address] [place] [address] PT INR [place] [facility] Comment on above: PT INR Start: 06-28-2024 Annual PCP Team Chronic Disease Visit Annual PCP Team Chronic Disease Visit [facility] Start: 06-28-2024 BP Controlled (<130/80) BP Controlled (<130/80) [facility] Start: 06-15-2024 End: 06-15-2024 ambulatory 06/15/2024 11:30 AM EDT Results Only [place] Fernandezwn [facility] [address] [place] [address] PT/INR [place] [facility] Comment on above: PT/INR Start: 06-14-2024 BP Controlled (<130/80) BP Controlled (<130/80) [facility] Start: 06-13-2024 End: 06-13-2024 Patient encounter procedure Cardiology Comment on above: 1 yr follow up Start: 06-08-2024 End: 06-08-2024 Patient encounter procedure 06/08/2024 3:00 PM EST Office Visit Internal Medicine [place] [address] [facility] [place] [address] Zeny Lam APRN.DELIVERY CLERK [address] [place] [address] discuss stress test ordered Internal Medicine [place] Comment on above: discuss stress test ordered Start: 06-01-2024 End: 06-01-2024 ambulatory 06/01/2024 11:00 AM EST Results Only [place] Mike [facility] [address] [place] [address] INR [facility] Comment on above: INR Start: 05-26-2024 BP Controlled (<130/80) BP Controlled (<130/80) [facility] Start: 05-24-2024 End: 05-24-2024 Patient encounter procedure Vascular Surgery Comment on above: 1 yr follow up CAROTID , SEE DR. NETO HWANG AFTER Start: 05-19-2024 End: 05-19-2024 Patient encounter procedure 05/19/2024 1:30 PM EST Office Visit Podiatry [address] [place] [address] Gayle Green [address] [address] Neuropathy Podiatry Comment on above: Neuropathy Start: 05-18-2024 Annual PCP Team Chronic Disease Visit Annual PCP Team Chronic Disease Visit [facility] Start: 05-18-2024 BP Controlled (<130/80) BP Controlled (<130/80) [facility] Start: 05-18-2024 End: 05-18-2024 ambulatory 05/18/2024 11:30 AM EST Results Only [place] Mike [facility] [address] [place] [address] INR [place] [facility] Comment on above: INR Start: 05-17-2024 End: 05-17-2024 Patient encounter procedure 05/17/2024 1:40 PM EST Office Visit Family Medicine [place] [address] [place] [id number] Teri Gruber APRN.DELIVERY CLERK [address] [place] [address] 3 month medication follow up Family Medicine [place] Comment on above: 3 month medication follow up Start: 05-11-2024 End: 05-11-2024 ambulatory 05/11/2024 11:15 AM EST Results Only [place] [facility] [address] [place] [address] INR [place] [facility] Comment on above: INR Start: 05-07-2024 DIABETES SCREEN DIABETES SCREEN [facility] Start: 04-26-2024 End: 07-26-2024 Magnesium [Mass/volume] in Serum or Plasma MAGNESIUM Lab Routine Side effect of medication Expected: 04/26/2024 (Approximate), Expires: 07/26/2024 [facility] Work Phone: Comment on above: Expected: 04/26/2024 (Approximate), Expi res: 07/26/2024 Start: 04-26-2024 End: 04-26-2024 ambulatory [place] [facility] Comment on above: Lab Start: 04-08-2024 End: 04-08-2024 ambulatory 04/08/2024 11:30 AM EST Results Only [place] [facility] [address] [place] [address] INR [place] [facility] Comment on above: INR Start: 04-06-2024 Advance Directive Discussion Advance Directive Discussion [facility] Start: 03-24-2024 Annual PCP Team Chronic Disease Visit Annual PCP Team Chronic Disease Visit [facility] Start: 03-24-2024 BP Controlled (<130/80) BP Controlled (<130/80) [facility] Start: 03-24-2024 End: 03-24-2024 ambulatory 03/24/2024 11:15 AM EST Results Only [place] [facility] [address] [place] [address] Labs [facility] Comment on above: Labs Start: 03-10-2024 End: 03-10-2024 ambulatory 03/10/2024 11:15 AM EST Results Only [place] Mkie [facility] [address] [place] [address] Lab [place] Mike [facility] Comment on above: Lab Start: 02-29-2024 End: 02-29-2024 Patient encounter procedure 02/29/2024 11:40 AM EST Appointment Cat Scan [address] [place] [address] Primary hypertension [I10]; Dizziness [R42] Cat Scan Comment on above: Primary hypertension [I10]; Dizziness [R 42] Start: 02-26-2024 End: 02-26-2024 Patient encounter procedure 02/26/2024 2:00 PM EST Office Visit Internal Medicine [place] [address] [facility] [place] [address] Zeny Lam APRN.DELIVERY CLERK [address] [facility] [place] [address] 5 month follow up Internal Medicine [place] Comment on above: 5 month follow up Start: 02-25-2024 BP Controlled (<130/80) BP Controlled (<130/80) [facility] Start: 02-23-2024 End: 02-23-2024 ambulatory 02/23/2024 11:00 AM EST Results Only [place] Mike [facility] [address] [place] [address] Lab [place] [facility] Comment on above: Lab Start: 02-15-2024 End: 02-15-2024 Patient encounter procedure 02/15/2024 2:20 PM EST Office Visit Internal Medicine [place] [address] [facility] [place] [address] Zeny Lam APRN.DELIVERY CLERK [address] [place] [address] 5 month follow up [facility] [place] Comment on above: 5 month follow up Start: 02-09-2024 End: 02-09-2024 ambulatory 02/09/2024 11:00 AM EST Results Only [place] Mike [facility] [address] [place] [address] lab [place] [facility] Comment on above: lab Start: 02-04-2024 Covid-19 Vaccine ( season) Covid-19 Vaccine () [facility] Start: 02-04-2024 Covid-19 Vaccine () Covid-19 Vaccine () [facility] Start: 01-26-2024 End: 01-26-2024 ambulatory 01/26/2024 11:00 AM EDT Results Only [place] Mike [facility] [address] [place] [address] 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) [I26.99] [facility] Comment on above: 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) [I26. 99] Start: 01-24-2024 Annual PCP Team Chronic Disease Visit Annual PCP Team Chronic Disease Visit [facility] Start: 01-24-2024 BP Controlled (<130/80) BP Controlled (<130/80) [facility] Start: 01-15-2024 End: 01-15-2024 Patient encounter procedure 01/15/2024 11:20 AM EDT Office Visit Internal Medicine [place] [address] [place] [address] Zeny Lam APRN.DELIVERY CLERK [address] [place] [address] [facility] ER Follow up 01/08/2024 Internal [facility] [place] Comment on above: [facility] Follow up 01/08/2024 Start: 01-14-2024 Annual PCP Team Chronic Disease Visit Annual PCP Team Chronic Disease Visit [facility] Start: 01-14-2024 BP Controlled (<130/80) BP Controlled (<130/80) [facility] in Start: 01-12-2024 End: 01-12-2024 ambulatory 01/12/2024 11:30 AM EDT Results Only [place] Fernandezwn [facility] [address] [place] [address] 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) [I26.99] [facility] Comment on above: 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) [I26. 99] Start: 01-06-2024 End: 01-06-2024 Patient encounter procedure 01/06/2024 11:20 AM EDT Office Visit Internal Medicine [place] [address] [facility] [place] [address] Zeny Lam APRN.DELIVERY CLERK [address] [facility] [place] [address] sleeping 14 hours a day, cold sweats, short of breath, fatigued, changes in bowel habits (reading things signs of heart attack and colon cancer) [facility] Medicine [place] Comment on above: sleeping 14 hours a day, cold sweats, sh ort of breath, fatigued, changes in bowel habits (reading things signs of heart attack and colon cancer) Start: 01-05-2024 End: 01-05-2024 ambulatory 01/05/2024 11:00 AM EDT Results [facility] [address] [place] [address] Vitamin D deficiency [E55.9]- [facility] LOC [facility] Comment on above: Vitamin D deficiency [E55.9]- [facility] LOC Start: 01-01-2024 End: 01-01-2024 ambulatory 01/01/2024 11:15 AM EDT Results [facility] [address] [place] [address] INR [facility] Comment on above: INR Start: 12-30-2023 Annual PCP Team Chronic Disease Visit Annual PCP Team Chronic Disease Visit [facility] Start: 12-30-2023 BP Controlled (<130/80) BP Controlled (<130/80) [facility] Start: 12-28-2023 End: 12-28-2023 ambulatory 12/28/2023 11:15 AM EDT Results Only [place] Fernandezwn [facility] [address] [place] [address] INR [place] [facility] Comment on above: INR Start: 12-18-2023 End: 12-18-2023 ambulatory 12/18/2023 11:30 AM EDT Results Only [place] Mahajann [facility] [address] [place] [address] INR [place] [facility] Comment on above: INR Start: 12-14-2023 End: 12-14-2023 Patient encounter procedure 12/14/2023 1:40 PM EDT Office Visit Internal Medicine [place] [address] [facility] [place] [address] Zeny Lam APRN.DELIVERY CLERK [address] [facility] [place] [address] Tired; lighheaded x 2 weeks [facility] [place] Comment on above: Tired; lighheaded x 2 weeks Start: 12-08-2023 End: 12-08-2023 ambulatory 12/08/2023 11:30 AM EDT Results Only [place] Mike [facility] [address] [place] [address] PT/[facility]R [facility] [facility] Comment on above: PT/INR Lab Start: 12-06-2023 Covid-19 Vaccine ( season) Covid-19 Vaccine () [facility] Start: 12-06-2023 Influenza vaccination Influenza Vaccine (#1) [facility] Start: 11-25-2023 ANNUAL PCP TEAM CHRONIC DISEASE VISIT ANNUAL PCP TEAM CHRONIC DISEASE VISIT [facility] Start: 11-24-2023 End: 11-24-2023 ambulatory 11/24/2023 11:00 AM EDT Results Only [place]andez[place] [facility] [address] [place] [address] lab [place] [facility] Comment on above: lab Start: 11-16-2023 End: 11-16-2023 Patient encounter procedure 11/16/2023 1:30 PM EDT Office Visit Urology [address] [place] [address] Micah Portillo APRN.DELIVERY CLERK, DNP [address] [place] [address] 3 MONTH FOLLOW UP Urology Comment on above: 3 MONTH FOLLOW UP Start: 11-12-2023 End: 11-12-2023 Patient encounter procedure [facility] Medicine Comment on above: ACUPUNCTURE SIGN AFR* Start: 11-10-2023 End: 11-10-2023 ambulatory 11/10/2023 11:00 AM EDT Results Only [place] Mike [facility] [address] [place] [address] lab [place] [facility] Comment on above: lab Start: 10-30-2023 End: 10-30-2023 ambulatory 10/30/2023 11:30 AM EDT Results Only [place] [facility] Draw Station [address] [place] [address] lab [place] [facility] Comment on above: lab Start: 10-29-2023 BP CONTROLLED (<130/80) BP CONTROLLED (<130/80) [facility] Start: 10-24-2023 Covid-19 Vaccine ( season) Covid-19 Vaccine () [facility] Start: 10-20-2023 End: 10-20-2023 ambulatory 10/20/2023 11:15 AM EDT Results Only [place] Fernandezwn [facility] [address] [place] [address] 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) [I26.99] [place] [facility] Comment on above: 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) [I26. 99] Start: 10-05-2023 End: 10-05-2023 ambulatory 10/05/2023 11:15 AM EDT Results Only [place] Fernandezwn [facility] [address] [place] [address] 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) [I26.99] [facility] Comment on above: 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) [I26. 99] Start: 09-23-2023 End: 09-23-2023 ambulatory 09/23/2023 11:30 AM EDT Results Only [place] [facility] [address] [place] [address] PROTHROMBIN TIME/PT [PT] [facility] Comment on above: PROTHROMBIN TIME/PT [PT] Start: 09-15-2023 End: 09-15-2023 Patient encounter procedure 09/15/2023 1:20 PM EDT Office Visit [place] Medicine [place] [address] [place] [address] [place] [address] Zeny Lam APRN.[facility] [address] [facility] [place] [place] [address] physical and 6 month follow up [facility] [place] Comment on above: physical and 6 month follow up Start: 09-11-2023 End: 09-11-2023 ambulatory 09/11/2023 11:30 AM EDT Results Only [place] [facility] [address] [place] [address] LABS [facility] Comment on above: LABS Start: 09-08-2023 End: 09-08-2023 ambulatory 09/08/2023 11:00 AM EDT Results Only [facility] [address] [place] [facility] [place] [address] Encounter for drug monitoring Z51.81 and Vitamin D deficiency E55.9 [facility] Comment on above: Encounter for drug monitoring Z51.81 and Vitamin D deficiency E55.9 Start: 09-07-2023 End: 09-07-2023 Patient encounter procedure 09/07/2023 11:20 AM EDT Office Visit [facility] [place] [address] [address] [place] [address] [place] [address] Last OV 11/10/2022 [facility] Comment on above: Last OV 11/10/2022 Start: 09-04-2023 End: 09-04-2023 ambulatory 09/04/2023 11:30 AM EDT Results Only [place] Fernandezwn [facility] [address] [place], [place] [id number] 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) [I26.99] [facility] Comment on above: 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) [I26. 99] Start: 08-27-2023 End: 08-27-2023 Patient encounter procedure 08/27/2023 1:30 PM EDT Office Visit Integrative Medicine [address] [place] [address] Irene Moraes MD [address] [place], [place] [id number] NEW CONSULT [facility] Comment on above: NEW CONSULT Start: 08-25-2023 End: 08-25-2023 Patient encounter procedure 08/25/2023 9:40 AM EDT Office Visit Internal Medicine [place] [address] [place], [place] [phone] Zeny Lam APRN.DELIVERY CLERK [address] [place], [place] [id number] follow up [facility] Medicine [place] Comment on above: follow up Start: 08-23-2023 ANNUAL PCP TEAM CHRONIC DISEASE VISIT ANNUAL PCP TEAM CHRONIC DISEASE VISIT [facility] Start: 08-23-2023 BP CONTROLLED (<130/80) BP CONTROLLED (<130/80) [facility] Start: 08-21-2023 End: 08-21-2023 ambulatory 08/21/2023 11:15 AM EDT Results Only [place] Mike [facility] [address] [place], [place] [id number] 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) [I26.99] [facility] Comment on above: 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) [I26. 99] Start: 08-19-2023 Covid-19 Vaccine () Covid-19 Vaccine () [facility] Start: 08-14-2023 End: 08-14-2023 Patient encounter procedure 08/14/2023 1:50 PM EDT Office Visit Cardiology [address] [place] [address] Primary hypertension [I10] Cardiology Comment on above: Primary hypertension [I10] Start: 08-14-2023 End: 08-14-2023 ambulatory 08/14/2023 11:15 AM EDT Results Only [place] [facility] [address] [place] [address] PROTHROMBIN TIME/PT [PT] [place] [facility] Comment on above: PROTHROMBIN TIME/PT [PT] Start: 08-12-2023 ANNUAL PCP TEAM CHRONIC DISEASE VISIT ANNUAL PCP TEAM CHRONIC DISEASE VISIT [facility] Start: 08-12-2023 BP CONTROLLED (<130/80) BP CONTROLLED (<130/80) [facility] Start: 08-12-2023 End: 08-12-2023 ambulatory 08/12/2023 11:15 AM EDT Results Only [place] Mike [facility] [address] [place] [address] PROTHROMBIN TIME/PT [PT] [place] Mike [facility] Comment on above: PROTHROMBIN TIME/PT [PT] Start: 08-10-2023 End: 08-10-2023 Patient encounter procedure 08/10/2023 1:00 PM EDT Office Visit Urology [address] [address] Micah Portillo APRN.DELIVERY CLERK, DNP [address] [place] [address] BPH with obstruction/lower urinary tract symptoms [N40.1, N13.8] Urology Comment on above: BPH with obstruction/lower urinary tract symptoms [N40.1, N13.8] Start: 07-30-2023 End: 07-30-2023 ambulatory 07/30/2023 11:15 AM EDT Results Only [place] [facility] [address] [place] [address] PROTHROMBIN TIME/PT [PT] [place] [facility] Comment on above: PROTHROMBIN TIME/PT [PT] Start: 07-13-2023 End: 10-12-2023 25-hydroxyvitamin D3 [Mass/volume] in Serum or Plasma VITAMIN D 25 HYDROXY Lab Routine Encounter for therapeutic drug monitoring Vitamin D deficiency Expected: 07/13/2023, Expires: 10/12/2023 [facility] Work Phone: Comment on above: Expected: 07/13/2023, Expires: Start: 07-13-2023 End: 10-12-2023 CBC W Auto Differential panel - Blood CBC + DIFF Lab Routine Encounter for therapeutic drug monitoring Expected: 07/13/2023, Expires: 10/12/2023 [facility] Work Phone: Comment on above: Expected: 07/13/2023, Expires: Start: 07-13-2023 End: 10-12-2023 Comprehensive metabolic 2000 panel - Serum or Plasma COMP METABOLIC PANEL Lab Routine Encounter for therapeutic drug monitoring Expected: 07/13/2023, Expires: 10/12/2023 [facility] [facility] Work Phone: Comment on above: Expected: 07/13/2023, Expires: Start: 07-13-2023 End: 10-12-2023 Lipid 1996 panel - Serum or Plasma LIPID PANEL BASIC Lab Routine Encounter for therapeutic drug monitoring Mixed hyperlipidemia Expected: 07/13/2023, Expires: 10/12/2023 [facility] Work Phone: Comment on above: Expected: 07/13/2023, Expires: Start: 07-13-2023 End: 10-12-2023 Magnesium [Mass/volume] in Serum or Plasma MAGNESIUM BLD Lab Routine Encounter for therapeutic drug monitoring Expected: 07/13/2023, Expires: 10/12/2023 [facility] Work Phone: Comment on above: Expected: 07/13/2023, Expires: 4 Start: 06-02-2023 ANNUAL PCP TEAM CHRONIC DISEASE VISIT ANNUAL PCP TEAM CHRONIC DISEASE VISIT [facility] Start: 06-02-2023 End: 09-01-2023 Hemoglobin A1c in Blood HGB A1C Lab Routine Impaired fasting glucose Expected: 06/02/2023, Expires: 09/01/2023 [facility] Work Phone: Comment on above: Expected: 06/02/2023, Expires: 4 Start: 04-06-2023 Advance Directive Discussion Advance Directive Discussion [facility] Start: 04-06-2023 Behavioral Health Screening Behavioral Health Screening [facility] Start: 04-06-2023 Depression Assessment Depression Assessment [facility] Start: 02-24-2023 End: 04-26-2023 Basic metabolic 2000 panel - Serum or Plasma BASIC METABOLIC PNL Lab Routine Kidney insufficiency Expected: 02/24/2023, Expires: 04/26/2023 [facility] Work Phone: Comment on above: Expected: 02/24/2023, Expires: 4 Start: 02-24-2023 End: 04-26-2023 CBC panel - Blood by Automated count CBC Lab Routine Kidney insufficiency Expected: 02/24/2023, Expires: 04/26/2023 [facility] Work Phone: Comment on above: Expected: 02/24/2023, Expires: 4 Start: 02-24-2023 End: 04-26-2023 Hemoglobin A1c in Blood HGB A1C Lab Routine Impaired fasting glucose Expected: 02/24/2023, Expires: 04/26/2023 [facility] Work Phone: Comment on above: Expected: 02/24/2023, Expires: 4 Start: 02-03-2023 BP CONTROLLED (<130/80) BP CONTROLLED (<130/80) [facility] Start: 12-05-2022 Influenza vaccination INFLUENZA (#1) [facility] Start: 11-13-2022 Adult depression screening assessment DEPRESSION SCREENING [facility] Start: 11-13-2022 ANNUAL PCP TEAM CHRONIC DISEASE VISIT ANNUAL PCP TEAM CHRONIC DISEASE VISIT [facility] Start: 11-13-2022 BP CONTROLLED (<130/80) BP CONTROLLED (<130/80) [facility] Start: 10-16-2022 ANNUAL PCP TEAM CHRONIC DISEASE VISIT ANNUAL PCP TEAM CHRONIC DISEASE VISIT [facility] Start: 09-23-2022 ANNUAL PCP TEAM CHRONIC DISEASE VISIT ANNUAL PCP TEAM CHRONIC DISEASE VISIT [facility] Start: 08-30-2022 End: 10-30-2022 Basic metabolic 2000 panel - Serum or Plasma BASIC METABOLIC PNL Lab Routine Impaired fasting glucose Expected: 08/30/2022, Expires: 10/30/2022 [facility] Work Phone: Comment on above: Expected: 08/30/2022, Expires: 3 Start: 08-30-2022 End: 10-30-2022 Hemoglobin A1c in Blood HGB A1C Lab Routine Impaired fasting glucose Expected: 08/30/2022, Expires: 10/30/2022 [facility] Work Phone: Comment on above: Expected: 08/30/2022, Expires: 3 Start: 08-22-2022 ANNUAL PCP TEAM CHRONIC DISEASE VISIT ANNUAL PCP TEAM CHRONIC DISEASE VISIT [facility] Start: 08-04-2022 End: 10-04-2022 Comprehensive metabolic 2000 panel - Serum or Plasma COMP METABOLIC PANEL Lab Routine 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) Mixed hyperlipidemia Primary hypertension Expected: 08/04/2022, Expires: 10/04/2022 [facility] Work Phone: Comment on above: Expected: 08/04/2022, Expires: 3 Start: 08-04-2022 End: 10-04-2022 Hematocrit [Volume Fraction] of Blood HEMATOCRIT (HCT) Lab Routine 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) Mixed hyperlipidemia Primary hypertension Expected: 08/04/2022, Expires: 10/04/2022 [facility] Work Phone: Comment on above: Expected: 08/04/2022, Expires: 3 Start: 08-04-2022 End: 10-04-2022 Hemoglobin [Mass/volume] in Blood HEMOGLOBIN (HGB) Lab Routine 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) Mixed hyperlipidemia Primary hypertension Expected: 08/04/2022, Expires: 10/04/2022 [facility] Work Phone: Comment on above: Expected: 08/04/2022, Expires: 3 Start: 08-04-2022 End: 10-04-2022 Lipid 1996 panel - Serum or Plasma LIPID PANEL BASIC Lab Routine 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) Mixed hyperlipidemia Primary hypertension Expected: 08/04/2022, Expires: 10/04/2022 [facility] Work Phone: Comment on above: Expected: 08/04/2022, Expires: 3 Start: 07-03-2022 ANNUAL PCP TEAM CHRONIC DISEASE VISIT ANNUAL PCP TEAM CHRONIC DISEASE VISIT [facility] Start: 07-03-2022 BP CONTROLLED (<130/80) BP CONTROLLED (<130/80) [facility] Start: 05-16-2022 ANNUAL PCP TEAM CHRONIC DISEASE VISIT ANNUAL PCP TEAM CHRONIC DISEASE VISIT [facility] Start: 05-16-2022 BP CONTROLLED (<130/80) BP CONTROLLED (<130/80) [facility] Start: 05-16-2022 End: 07-16-2022 CBC panel - Blood by Automated count CBC Lab Routine correction (current) use of anticoagulants Expected: 05/16/2022, Expires: 07/16/2022 [facility] Work Phone: Comment on above: Expected: 05/16/2022, Expires: 3 Start: 05-16-2022 End: 07-16-2022 Comprehensive metabolic 2000 panel - Serum or Plasma COMP METABOLIC PANEL Lab Routine Mixed hyperlipidemia Expected: 05/16/2022, Expires: 07/16/2022 [facility] Work Phone: Comment on above: Expected: 05/16/2022, Expires: 3 Start: 05-16-2022 End: 07-16-2022 Lipid 1996 panel - Serum or Plasma LIPID PANEL BASIC Lab Routine Mixed hyperlipidemia Expected: 05/16/2022, Expires: 07/16/2022 [facility] Work Phone: Comment on above: Expected: 05/16/2022, Expires: 3 Start: 05-16-2022 End: 07-16-2022 PSA/PROSTSPECAG SCRN PSA/PROSTSPECAG SCRN Lab Routine Screening for prostate cancer Expected: 05/16/2022, Expires: 07/16/2022 [facility] Work Phone: Comment on above: Expected: 05/16/2022, Expires: 3 Start: 04-06-2022 ADVANCE DIRECTIVE DISCUSSION ADVANCE DIRECTIVE DISCUSSION [facility] Start: 04-06-2022 DEPRESSION ASSESSMENT DEPRESSION ASSESSMENT [facility] Start: 03-24-2022 Patient discharge [facility] Work Phone: Start: 02-03-2022 End: 04-05-2022 TOX SCREEN ROUT UR TOX SCREEN ROUT UR Lab Routine Chronic low back pain without sciatica, unspecified back pain laterality Expected: 02/03/2022, Expires: 04/05/2022 [facility] Work Phone: Comment on above: Expected: 02/03/2022, Expires: 2 Start: 12-05-2021 Influenza vaccination INFLUENZA (#1) [facility] Start: 07-09-2021 Adult depression screening assessment DEPRESSION SCREENING [facility] Start: 04-06-2021 ADVANCE DIRECTIVE DISCUSSION ADVANCE DIRECTIVE DISCUSSION [facility] Start: 04-06-2021 DEPRESSION ASSESSMENT DEPRESSION ASSESSMENT [facility] Start: 10-27-2019 BP CONTROLLED (<130/80) BP CONTROLLED (<130/80) [facility] Start: 08-30-1961 Anxiety Screening Anxiety Screening [facility] Start: 08-30-1963 Depression Screening Depression Screening [facility] End: 09-14-2024 25-hydroxyvitamin D3 [Mass/volume] in Serum or Plasma VITAMIN D 25 HYDROXY Lab Routine Vitamin D deficiency Every 3 months for 6 Occurrences starting 09/15/2023 until 09/14/2024 [facility] Comment on above: Every 3 months for 6 Occurrences startin g 09/15/2023 until 09/14/2024 BACH SCREENING TEST BACH SCREENI NG TEST Procedures Routine Primary hypertension Ordered: 07/25/2024 [facility] Comment on above: Ordered: 07/25/2024 BACH SCREENING TEST BACH SCREENI NG TEST Procedures Routine Medicare annual wellness visit, subsequent MCI (mild cognitive impairment) Ordered: 08/15/2024 [facility] Work Phone: Comment on above: Ordered: 08/15/2024 BLADDER SCAN BLADDER SCAN Pro cedures Routine Benign prostatic hyperplasia with nocturia Ordered: 08/10/2023 [facility] Work Phone: Comment on above: Ordered: 08/10/2023 End: 09-14-2024 CBC W Auto Differential panel - Blood COMPLETE BLOOD COUNT AND DIFFERENTIAL Lab Routine Primary hypertension Encounter for therapeutic drug monitoring Every 3 months for 6 Occurrences starting 09/15/2023 until 09/14/2024 [facility] Work Phone: Comment on above: Every 3 months for 6 Occurrences startin g 09/15/2023 until 09/14/2024 End: 09-14-2024 Comprehensive metabolic 2000 panel - Serum or Plasma COMPREHENSIVE METABOLIC PANEL Lab Routine Primary hypertension Encounter for therapeutic drug monitoring Every 3 months for 6 Occurrences starting 09/15/2023 until 09/14/2024 [facility] Comment on above: Every 3 months for 6 Occurrences startin g 09/15/2023 until 09/14/2024 End: 09-07-2025 CT Chest W contrast IV CT CHEST W IVCON Radiology Routine Shortness of breath 1 Occurrences starting 08/08/2024 until 09/07/2025 [facility] Work Phone: Comment on above: 1 Occurrences starting 08/08/2024 until 09/07/2025 End: 03-16-2025 CT Head WO contrast CT BRAIN WO IVCON Radiology Routine Primary hypertension Dizziness 1 Occurrences starting 02/15/2024 until 03/16/2025 [facility] Work Phone: Comment on above: 1 Occurrences starting 02/15/2024 until 03/16/2025 ECG COMPLETE ECG COMPLETE ECG Routine Screening for ischemic heart disease Ordered: 06/08/2023 [facility] Work Phone: Comment on above: Ordered: 06/08/2023 ECG COMPLETE ECG COMPLETE ECG Routine SOB (shortness of breath) Ordered: 01/06/2024 [facility] Work Phone: Comment on above: Ordered: 01/06/2024 End: 07-26-2024 Echocardiography ECHO Cardiology Routine Primary hypertension 1 Occurrences starting 07/27/2023 until 07/26/2024 [facility] Work Phone: Comment on above: 1 Occurrences starting 07/27/2023 until 07/26/2024 End: 09-14-2024 Hemoglobin A1c in Blood HEMOGLOBIN A1C Lab Routine Impaired fasting glucose Every 3 months for 6 Occurrences starting 09/15/2023 until 09/14/2024 [facility] Comment on above: Every 3 months for 6 Occurrences startin g 09/15/2023 until 09/14/2024 End: 02-18-2023 INR in Platelet poor plasma by Coagulation assay INR (POC) Lab Routine 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) Once per month for 99 Occurrences starting 02/19/2022 until 02/18/2023 [facility] Work Phone: Comment on above: Once per month for 99 Occurrences starti ng 02/19/2022 until 02/18/2023 End: 11-07-2023 INR in Platelet poor plasma by Coagulation assay INR (POC) Lab Routine 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) correction (current) use of anticoagulants Once per week for 99 Occurrences starting 11/06/2022 until 11/07/2023 [facility] Work Phone: Comment on above: Once per week for 99 Occurrences startin g 11/06/2022 until 11/07/2023 End: 09-14-2024 LIPID PANEL, NONFASTING LIPID PANEL, NONFASTING Lab Routine Mixed hyperlipidemia Every 3 months for 6 Occurrences starting 09/15/2023 until 09/14/2024 [facility] Comment on above: Every 3 months for 6 Occurrences startin g 09/15/2023 until 09/14/2024 End: 08-24-2025 LUNG DIFFUSION CAPACITY (DLCO) LUNG DIFFUSION CAPACITY (DLCO) PFT Routine Shortness of breath 1 Occurrences starting 07/25/2024 until 08/24/2025 [facility] Work Phone: Comment on above: 1 Occurrences starting 07/25/2024 until 08/24/2025 LUNG DIFFUSION CAPAC ITY (DLCO) LUNG DIFFUSION CAPACITY (DLCO) PFT Routine Shortness of breath 08/04/2024 12:22 PM EDT [facility] Work Phone: End: 09-14-2024 Magnesium [Mass/volume] in Serum or Plasma MAGNESIUM Lab Routine Encounter for therapeutic drug monitoring Every 3 months for 6 Occurrences starting 09/15/2023 until 09/14/2024 [facility] Comment on above: Every 3 months for 6 Occurrences startin g 09/15/2023 until 09/14/2024 End: 06-16-2024 MR Lumbar spine WO contrast MRI LUMBAR SPINE WO IVCON Radiology Routine Lumbar pain Acute bilateral low back pain without sciatica Fall, subsequent encounter 1 Occurrences starting 05/18/2023 until 06/16/2024 [facility] Work Phone: Comment on above: 1 Occurrences starting 05/18/2023 until 06/16/2024 End: 08-24-2025 NITRIC OXIDE, EXHALED NITRIC OXIDE, EXHALED PFT Routine Shortness of breath 1 Occurrences starting 07/25/2024 until 08/24/2025 [facility] Comment on above: 1 Occurrences starting 07/25/2024 until 08/24/2025 End: 11-19-2025 NITRIC OXIDE, EXHALED NITRIC OXIDE, EXHALED PFT Routine Mild persistent asthma without complication (HCC) 1 Occurrences starting 10/20/2024 until 11/19/2025 [facility] Comment on above: 1 Occurrences starting 10/20/2024 until 11/19/2025 End: 06-16-2025 NM Heart Perfusion W stress and W radionuclide IV NM CARDIAC PERF STRESS/PHARM Radiology Routine Shortness of breath 1 Occurrences starting 05/17/2024 until 06/16/2025 [facility] Work Phone: Comment on above: 1 Occurrences starting 05/17/2024 until 06/16/2025 Patient Education ED Head Injury (Adult) [facility] Work Phone: Patient referral [facility] [place] Work Phone: POST VOID RESIDUAL POST VOID RES IDUAL Procedures Routine Benign prostatic hyperplasia with nocturia Ordered: 11/16/2023 [facility] Work Phone: Comment on above: Ordered: 11/16/2023 End: 12-26-2022 PT panel - Platelet poor plasma by Coagulation assay PROTHROMBIN TIME/PT Lab Routine correction (current) use of anticoagulants 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) 99 Occurrences starting 12/26/2021 until 12/26/2022 [facility] Work Phone: Comment on above: 99 Occurrences starting 12/26/2021 until 12/26/2022 End: 11-07-2023 PT panel - Platelet poor plasma by Coagulation assay PROTHROMBIN TIME/PT Lab Routine 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) 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 Once per week for 99 Occurrences starting 11/06/2022 until 11/07/2023 [facility] Work Phone: Comment on above: Once per week for 99 Occurrences startin g 11/06/2022 until 11/07/2023 End: 03-19-2024 PT panel - Platelet poor plasma by Coagulation assay PROTHROMBIN TIME/PT Lab Routine 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) Once per week for 53 Occurrences starting 03/20/2023 until 03/19/2024 [facility] Work Phone: Comment on above: Once per week for 53 Occurrences startin g 03/20/2023 until 03/19/2024 End: 03-24-2025 PT panel - Platelet poor plasma by Coagulation assay PROTHROMBIN TIME Lab Routine 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) 99 Occurrences starting 03/24/2024 until 03/24/2025, 1 completed [facility] Work Phone: Comment on above: 99 Occurrences starting 03/24/2024 until 03/24/2025, 1 completed SPINE INTERVENTION PROCEDURE SPINE INTERVENTION PROCEDURE Procedures Routine Radiculopathy, lumbar region Ordered: 11/12/2022 [facility] Work Phone: Comment on above: Ordered: 11/12/2022 End: 08-24-2025 SPIROMETRY WITH DILATOR IF OBSTRUCTED SPIROMETRY WITH DILATOR IF OBSTRUCTED PFT Routine Shortness of breath 1 Occurrences starting 07/25/2024 until 08/24/2025 [facility] Comment on above: 1 Occurrences starting 07/25/2024 until 08/24/2025 SPIROMETRY WITH DILA TOR IF OBSTRUCTED SPIROMETRY WITH DILATOR IF OBSTRUCTED PFT Routine Shortness of breath 08/04/2024 12:22 PM EDT [facility] Work Phone: End: 05-26-2024 US Carotid arteries - bilateral US CAROTID ARTERIES [facility] Vascular Lab Routine Stenosis of left carotid artery 1 Occurrences starting 05/26/2023 until 05/26/2024 [facility] Work Phone: Comment on above: 1 Occurrences starting 05/26/2023 until 05/26/2024 End: 08-11-2024 US Carotid arteries - bilateral US CAROTID ARTERIES [facility] Vascular Lab Routine Stenosis of left carotid artery 1 Occurrences starting 08/12/2023 until 08/11/2024 [facility] Work Phone: Comment on above: 1 Occurrences starting 08/12/2023 until 08/11/2024 End: 05-24-2025 US Carotid arteries - bilateral US CAROTID ARTERIES [facility] Vascular Lab Routine PAD (peripheral artery disease) ([facility]) 1 Occurrences starting 05/24/2024 until 05/24/2025 [facility] Comment on above: 1 Occurrences starting 05/24/2024 until 05/24/2025 End: 05-26-2024 US Lower extremity artery - bilateral PVR LEG [facility] Vascular Lab Routine PAD (peripheral artery disease) ([facility]) 1 Occurrences starting 05/26/2023 until 05/26/2024 [facility] Work Phone: Comment on above: 1 Occurrences starting 05/26/2023 until 05/26/2024 End: 08-11-2024 US Lower extremity artery - bilateral PVR LEG [facility] Vascular Lab Routine PAD (peripheral artery disease) ([facility]) 1 Occurrences starting 08/12/2023 until 08/11/2024 [facility] Comment on above: 1 Occurrences starting 08/12/2023 until 08/11/2024 End: 05-24-2025 US Lower extremity artery - bilateral PVR LEG [facility] V[facility] Lab Routine Stenosis of left carotid artery 1 Occurrences starting 05/24/2024 until 05/24/2025 [facility] Work Phone: Comment on above: 1 Occurrences starting 05/24/2024 until 05/24/2025 End: 03-02-2025 XR Cervical spine AP and Lateral and oblique XR CERV OTHER 4V AP/LAT/OBL Radiology Routine Neck pain 1 Occurrences starting 02/01/2024 until 03/02/2025 [facility] Work Phone: Comment on above: 1 Occurrences starting 02/01/2024 until 03/02/2025 XR Cervical spine AP and Lateral and oblique XR CERV OTHER 4V AP/LAT/OBL Radiology Routine Neck pain 02/01/2024 3:14 PM EDT [facility] Immunizations Immunization Date Immunization Notes Care Provider [facility] 05-17-2024 COVID-19 original vaccine, booster dose, monovalent (MODERNA) Edgar Loaiza DO Work Phone: [facility] 05-17-2024 COVID-19 vaccine, ag e 12+ yr (MODERNA) Zeny Genaro AUTISTIC TEACHER.DELIVERY CLERK Work Phone: [facility] 12-10-2023 COVID-19 original vaccine, booster dose, monovalent (MODERNA) Zeny Genaro AUTISTIC TEACHER.DELIVERY CLERK Work Phone: [facility] 12-10-2023 COVID-19 vaccine, ag e 12+ yr (MODERNA) Zeny Genaro AUTISTIC TEACHER.DELIVERY CLERK Work Phone: [facility] 11-27-2023 influenza (HD-IIV4) vaccine, age 65+ yr, high dose, quadrivalent, PF (FLUZONE HIGH-DOSE) Zeny Genaro AUTISTIC TEACHER.DELIVERY CLERK Work Phone: [facility] 11-27-2023 Seasonal trivalent influenza vaccine, adjuvanted, preservative free Zeny Elizabethr AUTISTIC TEACHER.DELIVERY CLERK Work Phone: [facility] 08-23-2024 influenza virus vacc ine, unspecified formulation [facility]cf Provider [facility] 06-24-2023 COVID-19 vaccine, ag e 12+ yr, season (MODERNA) Zeny Genaro AUTISTIC TEACHER.DELIVERY CLERK Work Phone: [facility] 06-24-2023 COVID-19 vaccine, ag e 12+ yr, bivalent (MODERNA) Zeny Genaro AUTISTIC TEACHER.DELIVERY CLERK Work Phone: [facility] 12-29-2022 COVID-19 vaccine, ag e 12+ yr, season (MODERNA) Zeny Genaro AUTISTIC TEACHER.DELIVERY CLERK Work Phone: [facility] 12-02-2022 respiratory syncytia l virus (RSV) vaccine, bivalent (ABRYSVO) Mckinley Leal MD Work Phone: [facility] Work Phone: 12-01-2022 influenza (aIIV4) vaccine, age 65+ yr, quadrivalent, PF (FLUAD QUAD) Franc Hills MD Work Phone: [facility] Work Phone: 12-01-2022 influenza virus vacc ine, unspecified formulation Zeny Genaro AUTISTIC TEACHER.DELIVERY CLERK Work Phone: [facility] 07-31-2022 COVID-19 vaccine, ag e 12+ yr, bivalent (PFIZER-BIONTECH) Franc Hills MD Work Phone: [facility] 06-05-2022 zoster vaccine recombinant Franc Hills MD Work Phone: [facility] Work Phone: 04-07-2022 zoster vaccine recombinant Franc Hills MD Work Phone: [facility] Work Phone: 12-13-2021 COVID-19 vaccine, ag e 12+ yr, bivalent booster (PFIZER-BIONTECH) Sara Baxter AUTISTIC TEACHER.DELIVERY CLERK Work Phone: [facility] 11-12-2021 influenza (aIIV4) vaccine, age 65+ yr, quadrivalent, PF (FLUAD QUAD) Franc Hills MD Work Phone: [facility] 11-12-2021 influenza, injectabl e, quadrivalent, contains preservative Franc Hills MD Work Phone: [facility] Work Phone: 07-03-2021 COVID-19 vaccine, ag e 12+ yr (PFIZER-BIONTECH - PURPLE TOP) Sara Vee AUTISTIC TEACHER.DELIVERY CLERK Work Phone: [facility] Work Phone: 01-10-2021 tetanus toxoid, redu ankita diphtheria toxoid, and acellular pertussis vaccine, adsorbed Franc Hills MD Work Phone: [facility] Work Phone: 01-01-2021 COVID-19 vaccine, ag e 12+ yr (PFIZER-BIONTECH - PURPLE TOP) Franc Hills MD Work Phone: [facility] Work Phone: 11-13-2020 influenza, high dose seasonal, preservative-free Franc Hills MD Work Phone: [facility] Work Phone: 05-31-2020 COVID-19 vaccine, ag e 12+ yr (PFIZER-BIONTECH - PURPLE TOP) Franc Hills MD Work Phone: [facility] 05-11-2020 COVID-19 vaccine, ag e 12+ yr (PFIZER-BIONTECH - PURPLE TOP) Franc Hills MD Work Phone: [facility] 11-19-2019 influenza, high dose seasonal, preservative-free Franc Hills MD Work Phone: [facility] Work Phone: 12-05-2018 influenza, high dose seasonal, preservative-free Franc Hills MD Work Phone: [facility] Work Phone: 12-05-2018 Seasonal trivalent influenza vaccine, adjuvanted, preservative free Franc Hills MD Work Phone: [facility] Work Phone: 12-14-2017 influenza, high dose seasonal, preservative-free Franc Hills MD Work Phone: [facility] Work Phone: 12-14-2017 Seasonal trivalent influenza vaccine, adjuvanted, preservative free Franc Hills MD Work Phone: [facility] Work Phone: 10-21-2017 tetanus toxoid, redu ankita diphtheria toxoid, and acellular pertussis vaccine, adsorbed Franc Hills MD Work Phone: [facility] Work Phone: 11-26-2016 Seasonal trivalent influenza vaccine, adjuvanted, preservative free Franc Hills MD Work Phone: [facility] Work Phone: 12-05-2015 influenza, injectabl e, quadrivalent, preservative free Franc Hills MD Work Phone: [facility] Work Phone: 12-05-2015 influenza, seasonal, injectable Franc Hills MD Work Phone: [facility] 04-17-2015 pneumococcal conjuga te vaccine, 13 valent Franc Hills MD Work Phone: [facility] [facility] 01-04-2015 influenza, high dose seasonal, preservative-free Franc Hills MD Work Phone: [facility] Work Phone: 01-18-2014 influenza, seasonal, injectable Franc Hills MD Work Phone: [facility] 12-19-2013 pneumococcal polysaccharide vaccine, 23 valent Franc Hills MD Work Phone: [facility] Work Phone: 12-08-2013 Pneumococcal Vaccine [facility] Work Phone: 12-08-2013 pneumococcal vaccine , unspecified formulation [facility] 12-05-2013 Influenza virus vaccine [facility] Work Phone: 12-05-2013 influenza, seasonal, injectable, preservative free Franc Hills MD Work Phone: [facility] Work Phone: 12-13-2012 influenza virus vacc ine, unspecified formulation Franc Hills MD Work Phone: [facility] Work Phone: 12-27-2011 influenza virus vacc ine, unspecified formulation Franc Hills MD Work Phone: [facility] Work Phone: 01-04-2011 influenza virus vacc ine, unspecified formulation Franc Hills MD Work Phone: [facility] Work Phone: 01-19-2010 influenza virus vacc ine, unspecified formulation Franc Hills MD Work Phone: [facility] 01-04-2010 pneumococcal polysaccharide vaccine, 23 valent Franc Hills MD Work Phone: [facility] Work Phone: 05-30-2009 tetanus and diphther ia toxoids, adsorbed, preservative free, for adult use (2 Lf of tetanus toxoid and 2 Lf of diphtheria toxoid) Franc Hills MD Work Phone: [facility] Work Phone: 01-08-2009 influenza virus vacc ine, unspecified formulation Franc Hills MD Work Phone: [facility] Work Phone: 12-07-2008 pneumococcal polysaccharide vaccine, 23 valent Franc Hills MD Work Phone: [facility] Work Phone: Payers Date Payer Category Payer Medicare (Managed Care) [employer] [id number] 2024 Unknown [employer] [place] [id number] 2024-Present [phone] [address] [place] [address] [facility] [id number] 2024 Medicare [id number] 2023 Self-pay [id number] 2022 Unknown [id number] 2015 Medicare [employer] [facility] PPO [id number] 2015-Present [phone] [facility] [place] [address] O [id number] 2015 Medicare [id number] 2014 Medicare [id number] 2014 Unknown [id number] Unknown VA AUTH REQUIR ED SEE NOTE [id number] Unknown [id number] Unknown [id number] Social History Date Type Detail Facility Start: 04-02-2012 End: 12-14-2023 Tobacco smoking status NHIS Ex-smoker [facility] Work Phone: Start: 04-06-1960 End: 04-06-1980 History of tobacco use Current smoker [facility] Work Phone: Start: 04-06-1960 End: 04-06-1980 History of tobacco use Cigarette Smoker [facility] Work Phone: Start: 05-16-2021 End: 11-15-2024 Alcohol intake Ex-drinker (finding) [facility] Start: 05-16-2021 End: 08-08-2022 Alcohol intake [facility] Start: 02-12-2019 End: 01-17-2020 History SDOH Alcohol Frequency 3 [facility] Start: 11-28-2019 End: 05-26-2022 History SDOH Alcohol Std Drinks 2 [facility] Start: 01-17-2020 End: 05-26-2022 History SDOH Alcohol Binge 1 [facility] Start: 04-20-2017 History SDOH Alcohol Comment CAGE negative. [facility] Start: 02-12-2019 End: 05-26-2022 History SDOH Social Connections Phone 5 [facility] Start: 02-12-2019 Education 18 [facility] Start: 1945 Sex Assigned At Male [facility] Start: 12-14-2019 End: 02-03-2022 Exposure to SARS-CoV-2 (event) Not sure [facility] Start: 09-28-2021 End: 03-24-2022 Tobacco smoking status RIIS Unknown if ever smoked [facility] Work Phone: Start: 05-08-2014 Occasional [facility] Work Phone: Start: 01-10-2021 None [facility] Work Phone: Start: 01-10-2021 Alone [facility] Work Phone: Start: 01-10-2021 Non-smoker [facility] Work Phone: Start: 04-02-2012 End: 12-14-2023 Tobacco use and exposure Smokeless tobacco non-user [facility] Start: 12-16-2021 End: 12-26-2021 Exposure to SARS-CoV-2 (event) Unable to assess [facility] Work Phone: Start: 05-26-2022 End: 06-02-2022 History SDOH Alcohol Frequency 4 [facility] Start: 08-11-2022 Alcohol Comment stopped 07/19/2022 [facility] Start: 05-26-2022 End: 08-08-2022 Social connection and isolation panel [facility] Do you belong to any clubs or organizations such as christianity groups, unions, fraternal or athletic groups, or school groups? No [facility] Are you now , , , , never or living with a partner? [facility] How often to you hav e a drink containing alcohol? 2-3 time sa week [facility] Work Phone: How many standard dr inks containing alcohol do you have on a typical day? 1 or 2 [facility] Work Phone: How often do you hav e 6 or more drinks on 1 occasion? Never [facility] Work Phone: Start: 03-07-2012 How hard is it for you to pay for the very basics like food, housing, medical care, and heating Not hard at all [facility] Do you feel stress - tense, restless, nervous, or anxious, or unable to sleep at night because your mind is troubled all the time - these days [OSQ] Not at all [facility] (I/We) worried savi er (my/our) food would run out before (I/we) got money to buy more. Never true [facility] Start: 12-09-2018 Gender identity Identifies as male gender (finding) [facility] Start: 12-09-2018 Sexual orientation Heterosexual (finding) [facility] How many standard dr inks containing alcohol do you have on a typical day? 3 or 4 [facility] Start: 01-13-2020 Alcoholic beverage intake Current drinker of alcohol (finding) [facility] Do you feel stress - tense, restless, nervous, or anxious, or unable to sleep at night because your mind is troubled all the time - these days [OSQ] Only a little [facility] How often to you hav e a drink containing alcohol? 2-4 times a month [facility] How hard is it for y ou to pay for the very basics like food, housing, medical care, and heating Not very hard [facility] How often to you hav e a drink containing alcohol? Monthly or less [facility] Medical Equipment Procedure Code Equipment Code Equipment Origin al Text Equipment Identifier Dates Gas Io Ispan Vsn Sys 125gm Sf6 - [id number] Start: 05-04-2013 Lens Iol +21.5 D iop 13mm 6mm - [id number] Start: 05-04-2013 Patch Bovine Pericardial Vascular Duravess 8x8 - [id number] Start: 06-10-2019 Goals Date Patient Goal Desired Activity /State Personal health goal Functional Status Date Assessment Result Facility 08-08-2024 Total score [AUDIT-C] 2 08/09/19 10:08 AM EDT [facility] 08-08-2024 How often to you hav e a drink containing alcohol? Monthly or less 08/08/2024 10:08 AM EDT User, [email or web address] Monthly or less [facility] 08-08-[address] inks containing alcohol do you have on a typical day? 3 or 4 08/08/2024 10:08 AM EDT User, Bobbyt 3 or 4 [facility] 08-08-2024 How often do you hav e 6 or more drinks on 1 occasion? Never 08/08/2024 10:08 AM EDT User, [email or web address] Never [facility] 06-07-2024 Total score [AUDIT-C] 3 06/08/19 7:48 PM EST [facility] 06-07-2024 Within the last year , have you been humiliated or emotionally abused in other ways by your partner or ex-partner? No 06/07/2024 7:48 PM EST User, [email or web address] No [facility] 06-07-2024 Within the last year , have you been afraid of your partner or ex-partner? No 06/07/2024 7:48 PM EST User, Bobbyt [facility] 06-07-2024 Within the last year , have you been raped or forced to have any kind of sexual activity by your partner or ex-partner? No 06/07/2024 7:48 PM EST User, Bobbyt No [facility] 06-07-2024 Within the last year , have you been kicked, hit, slapped, or otherwise physically hurt by your partner or ex-partner? No 06/07/2024 7:48 PM EST User, Giovanihart No [facility] 06-07-2024 How often to you hav e a drink containing alcohol? 2-4 times a month 06/07/2024 7:48 PM EST User, Mychart 2-4 times a month [facility] 06-07-[address] inks containing alcohol do you have on a typical day? 3 or 4 06/07/2024 7:48 PM EST User, [email or web address] 3 or 4 [facility] 06-07-2024 How often do you hav e 6 or more drinks on 1 occasion? Never 06/07/2024 7:48 PM EST User, Mychart Never [facility] 06-06-2024 Total score [AUDIT-C] 3 06/07/19 9:06 AM EST [facility] 06-06-2024 Within the last year , have you been humiliated or emotionally abused in other ways by your partner or ex-partner? No 06/06/2024 9:06 AM EST User, Giovanihart No [facility] 06-06-2024 Within the last year , have you been afraid of your partner or ex-partner? No 06/06/2024 9:06 AM EST User, Giovanihart No [facility] 06-06-2024 Within the last year , have you been raped or forced to have any kind of sexual activity by your partner or ex-partner? No 06/06/2024 9:06 AM EST User, Giovanihart No [facility] 06-06-2024 Within the last year , have you been kicked, hit, slapped, or otherwise physically hurt by your partner or ex-partner? No 06/06/2024 9:06 AM EST User, Giovanihart No [facility] 06-06-2024 How often to you hav e a drink containing alcohol? 2-4 times a month 06/06/2024 9:06 AM EST User, Mychart 2-4 times a month [facility] 06-06-[address] inks containing alcohol do you have on a typical day? 3 or 4 06/06/2024 9:06 AM EST User, Mychart 3 or 4 [facility] 06-06-2024 How often do you hav e 6 or more drinks on 1 occasion? Never 06/06/2024 9:06 AM EST User, Mychart Never [facility] 06-11-2019 Are you deaf, or do you have serious difficulty hearing No 06/11/2019 9:31 AM Hilaria Shook RN No [facility] 06-11-2019 Are you blind, or do you have serious difficulty seeing, even when wearing glasses No 06/11/2019 9:31 AM Hilaria Shook RN No [facility] 06-11-2019 Do you have serious difficulty walking or climbing stairs No 06/11/2019 9:31 AM Hilaria Shook RN No [facility] 06-11-2019 Do you have difficul ty dressing or bathing No 06/11/2019 9:31 AM Hilaria Shook RN No [facility] 06-11-2019 Because of a physica l, mental, or emotional condition, do you have difficulty doing errands alone such as visiting a physician's office or shopping No 06/11/2019 9:31 AM Hilaria Shook RN No [facility] Mental Status Date Assessment Result Facility 03-24-2022 [facility] 06-11-2019 Because of a physica l, mental, or emotional condition, do you have serious difficulty concentrating, remembering, or making decisions No 06/11/2019 9:31 AM Hilaria Shook RN No [facility] Clinical Notes 06-10-2019 to 11-15-2024 Zeny Lam APRN.DELIVERY CLERK - 11/15/2024 12:53 PM EDTTelephone Encounter - Zeny Lam APRN.DELIVERY CLERK - 10/28/2024 12:00 PM EDTTelephone Encounter - Zeny Lam APRN.DELIVERY CLERK - 10/28/2024 12:00 PM EDT Note Date & Type Note Facility 11-15-2024 History of Presen t illness Narrative SUBJECTIVE Alex Brooks is a 79 year old male here today for a check up on his medical problems. Chief Complaint Patient presents with: F/U 3 Month HPI Rich Brooks is a 79-year-old male with a history of COPD, HTN, and LBBB, presenting for follow-up on recent lab results and ongoing dyspnea. Rich reports persistent dyspnea without improvement after nearly a month of using Breo, which he takes daily in the morning. He notes that the medication's website states it may take 1-2 months to show effects. He denies any external symptoms of COPD and expresses concerns about the focus on pulmonology, suggesting that cardiology should be considered. A friend, who is a nurse, recommended further cardiac evaluation, including an angiogram and GALE, due to Rich's history of LBBB and persistent dyspnea. Rich had a stress test 8 months ago, which was normal, but his friend believes it is not 100% reliable. Rich also reports occasional leg cramps in the left calf, occurring every other day and resolving with walking. He monitors his blood pressure regularly and notes that it remains stable, usually below 130 mmHg after 4 hours of taking his antihypertensive medications, which include amlodipine. He mentions that his heart rate is all over the place. Recent lab results from 11/09 show an A1c of 5.7%, improved from 5.9% three months prior. His metabolic panel, including liver function, electrolytes, and kidney function, is normal. His INR is 2.7. Recording using Aste[employer] software for draft documentation of the visit was discussed with the patient/authorized wire rope sales representative; all questions welcomed and answered. Patient/authorized wire rope sales representative agreed to proceed His medications were reviewed today and his list is now up to date. Medications Current Outpatient Medications Medication Sig oxyCODONE-acetaminophen (PERCOCET) 7.5-325 mg tablet Take 1 tablet by mouth every 6 hours as needed for pain for up to 7 days. NIFEdipine ER (PROCARDIA XL) 60 mg 24 hr tablet Take 1 tablet by mouth once daily. fluticasone-vilanterol (BREO ELLIPTA) 100-25 mcg/dose inhaler Inhale 1 inhalation as instructed once daily. LORazepam (ATIVAN) 2 mg tab Take 1 tablet by mouth at bedtime as needed (insomnia) for up to 180 days. potassium chloride (KLOR-CON 10) 10 mEq tablet Take 1 tablet by mouth two times a day. warfarin (COUMADIN) 5 mg tablet As directed, currently taking as alternating every other day with taking 7.5 mg and 5 mg, plan for max dose of 10 mg per day at this time. rosuvastatin (CRESTOR) 40 mg tablet Take 1 tablet by mouth once daily. famotidine (PEPCID) 40 mg tablet Take 1 tablet by mouth once daily as needed. cloNIDine HCl (CATAPRES) 0.1 mg tablet Take 1-2 tablets by mouth three times a day as needed (for SBP greater than 150). hydrocortisone 2.5 % cream Seldom vitamin B complex (B COMPLEX 1 ORAL) Take 1 tablet by mouth once daily. coenzyme Q10 (COENZYME Q-10) 100 mg cap capsule Take 400 mg by mouth once daily. Cyanocobalamin 2,500 mcg subl Dissolve under the tongue twice daily. calcium, elemental, tab Take 600 mg by mouth twice daily. multivitamin (SOFYA MULTIVITAMIN) tablet Take 1 tablet by mouth once daily. No current facility-administered medications for this visit. ALLERGIES Allergen Reactions Cyclobenzaprine Other: See Comments Double vision Gabapentin Intolerance Bad interaction with Warfarin Keflex [Cephalexin] Rash ACTIVE PROBLEM LIST Compression Fracture of L1 Lumbar Vertebra (Hcc) - 07/15/2023 Sciatic Leg Pain - 07/15/2023 Bilateral Carotid Artery Stenosis - 06/15/2023 Acute Gastritis Without Hemorrhage - 04/20/2023 Spinal Stenosis of Lumbar Region - 09/24/2022 Pad (Peripheral Artery Disease) - 08/16/2021 Kidney Insufficiency - 04/04/2021 Posterior Vitreous Detachment of Right Eye - 06/19/2020 Age-Related Nuclear Cataract of Right Eye - 06/19/2020 Balance Problem - 03/12/2020 History of Left-Sided Carotid Endarterectomy - 06/10/2019 Colonic Polyp - 11/29/2018 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 Hypercoag studies all have been neg as of 05/2014. Bro w/hypercoag W/U previously as well. Gerd (Gastroesophageal Reflux Disease) - 02/17/2014 Htn (Hypertension) - 07/02/2009 Comment: 03/24/2023: Home BP Cuff Validated. Home BP: 114/71 93 Office BP: 100/56 96 Lumbago - 02/23/2009 Impaired Fasting Glucose - 10/11/2008 Comment: Under 110; See labs 10/12 Hereditary and Idiopathic Peripheral Neuropathy - 10/05/2008 Mixed Hyperlipidemia - 10/05/2008 Benign Prostatic Hyperplasia With Nocturia - 09/04/2008 Insomnia, unspecified - 09/04/2008 SOCIAL HISTORY[1] Review of Systems Constitutional: Negative. Respiratory: Positive for shortness of breath. Negative for cough, chest tightness and wheezing. Cardiovascular: Negative. OBJECTIVE BP 128/68 Pulse 80 Resp 20 Wt 197 lb 1.5 oz (89.4kg) Physical Exam Vitals and nursing note reviewed. Constitutional: General: He is awake. He is not in acute distress. Appearance: Normal appearance. He is well-developed and well-groomed. He is not ill-appearing, toxic-appearing or diaphoretic. HENT: Head: Normocephalic. Right Ear: External ear normal. Left Ear: External ear normal. Nose: Nose normal. Eyes: General: Vision grossly intact. Conjunctiva/sclera: Conjunctivae normal. Pupils: Pupils are equal, round, and reactive to light. Neck: Vascular: No JVD. Trachea: Trachea normal. Cardiovascular: Rate and Rhythm: Normal rate and regular rhythm. Pulses: Normal pulses. Heart sounds: Normal heart sounds. No murmur heard. Pulmonary: Effort: Pulmonary effort is normal. No accessory muscle usage, prolonged expiration or respiratory distress. Breath sounds: Normal breath sounds. Musculoskeletal: Cervical back: Neck supple. Skin: General: Skin is warm and dry. Capillary Refill: Capillary refill takes less than 2 seconds. Neurological: General: No focal deficit present. Mental Status: He is alert and oriented to person, place, and time. Mental status is at baseline. Psychiatric: Attention and Perception: Attention and perception normal. Mood and Affect: Mood and affect normal. Speech: Speech normal. Behavior: Behavior normal. Behavior is cooperative. Thought Content: Thought content normal. Cognition and Memory: Cognition and memory normal. Judgment: Judgment normal. ASSESSMENT/PLAN: 1. SOB (shortness of breath) (R06.02) Persistent shortness of breath with no improvement after nearly a month of Breo therapy. Recent chest X-ray shows hypoinflation of the lungs with crowded lung markings in both lung bases, but no significant changes compared to previous imaging. Previous echocardiogram was normal, and a stress test was performed, but concerns remain about potential cardiac causes for the symptoms. - Can reach out and discuss the possibility of a heart catheterization with Dr. Mercedes to rule out any cardiac issues. - Will send a message to Dr. Funez and Dr. Mercedes to discuss the next steps and whether further cardiac evaluation is necessary. - Follow-up with Dr. Funez's nurse practitioner to discuss the current status and any additional pulmonary tests that may be needed. 2. Chronic low back pain without sciatica, unspecified back pain laterality (M54.50) Patient reports occasional use of Percocet for pain management. - Continue current pain management regimen as needed. 3. Compression fracture of L1 vertebra, sequela (S32.010S) Stable. 4. 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) (I26.99) correction (current) use of anticoagulants (Z79.01) INR is stable at 2.7. - Continue current anticoagulation therapy. - INR monitoring order is valid until March 24, 2024. 5. IFG (impaired fasting glucose) (R73.01) HbA1c has improved to 5.7% from 5.9% three months ago, indicating better glycemic control. - Continue current management and lifestyle modifications. 6. Primary hypertension (I10) Blood pressure readings are stable with current medication regimen. - Continue current antihypertensive medications. - Monitor blood pressure regularly. 7. Vitamin D deficiency (E55.9) Vitamin D levels were normal in August. - Continue current Vitamin D supplementation. 8. Insomnia, unspecified type (G47.00) Patient reports regular use of lorazepam at night. - Continue current medication regimen. Portions of this note have been entered by ancillary staff. I have reviewed and when necessary edited, so that they are an adequate record of my encounter with this patient Please note that parts of this document were created using voice recognition software and therefore may contain grammatical errors. Patient verbalizes understanding of instructions from today's visit and in agreement with treatment plan. Questions answered. Agrees to call the office if questions, concerns of issues with acute symptoms not improving or if they worsen. See diagnoses and orders for additional plan(s). Allergies and medications were reviewed, list was updated, and refills given if needed. Past medical, surgical, social, and family history reviewed and updated as appropriate. Encouraged proper diet & exercise as well as compliance with taking medications. Age-appropriate health preventative measures were discussed. Return in about 3 months (around 02/15/2025) for Follow up on chronic conditions and medications.. MICHI Navarro [1] Social History Tobacco Use Smoking status: Former Current packs/day: 0.00 Average packs/day: 1 pack/day for 20.0 years (20.0 ttl pk-yrs) Types: Cigarettes Start date: 04/06/1960 Quit date: 04/06/1980 Years since quittin.6 Smokeless tobacco: Never Vaping Use Vaping status: Never Used Substance Use Topics Alcohol use: Not Currently Comment: stopped 07/19/2022 Drug use: Yes Frequency: 7.0 times per week Types: Marijuana documented in this encounter [facility] 10-28-2024 Telephone encounter Note Noted and agree, no call back needed. [facility] 10-28-2024 Miscellaneous Notes Noted and agree, no call back needed. Last INR: INR 2.5 10/28/2024 Current dose of coumadin is: 7.5 mg alternates with 5 mg every other day. Last date of dose change: 09/07/2024 Previous INR (date and result): 10/14/24 2.6 Additional Clinical Information or narrative: yes: No missed dosages No changes in diet No unusual bleeding/bruising No Alcohol Patient scheduled for INR on 11/09/2024 and reports will continue current dose. No call back needed if that is what Zeny wants done. documented in this encounter [facility] 10-28-2024 Telephone encounter Note Last INR: INR 2.5 10/28/2024 Current dose of coumadin is: 7.5 mg alternates with 5 mg every other day. Last date of dose change: 09/07/2024 Previous INR (date and result): 10/14/24 2.6 Additional Clinical Information or narrative: yes: No missed dosages No changes in diet No unusual bleeding/bruising No Alcohol Patient scheduled for INR on 11/09/2024 and reports will continue current dose. No call back needed if that is what Zeny wants done. [facility] 10-26-2024 Telephone encounter Note Patient called. Verified name and date of . Patient wanted to let Shruti know he appreciates that Shruti called him and will see her and discuss plan at upcoming appointment in December. Emerald Hunt LPN [facility] 10-26-2024 Miscellaneous Notes Patient called. Verified name and date of . Patient wanted to let Shruti know he appreciates that Shruti called him and will see her and discuss plan at upcoming appointment in December. Emerald Hunt LPN documented in this encounter [facility] 10-26-2024 Telephone encounter Note Left message to notify patient that medication was sent to his pharmacy. Celia Negrete LPN [facility] 10-26-2024 Miscellaneous Notes Left message to notify patient that medication was sent to his pharmacy. Celia Negrete LPN This has been sent in to the pharmacy. Zeny Lam APRN.CNP Pt phoned to tell Zeny florenceyumiko for responding so quickly. Pt asking if you can send new nefedipine Rx to [facility]. Reports he is almost out of 30 mg, and right now he can get the 60 mg Rx for $20, lowest perez ever. Pt would like to pick this up today. Pended. Please let him know okay to take the total of 60 mg of his nifedipine (2 tabs of the 30 mg dose ok), I updated the med list. Zeny Lam APRN.KAYLA Pt calls to report his bp has been consistently running higher since starting Breo. Pt reports he looked up SE of Breo and increased bp was one of them. Pt reports today bp was 141/75. Pt reports he took it a couple more times throughout the morning and the lowest it would get is 134/75/ Pt is asking if nifedipine 30 mg can be increased to 2 tabs daily since higher bp is a SE of Breo. Nifedipine 30 mg was increased to 1.5 tabs on 10/18/24. Please review and advise. Pt reports he will not need a new rx right now if dose is increased but would like dose updated in med chart. Brandi Lambert LPN documented in this encounter [facility] 10-26-2024 Telephone encounter Note This has been sent in to the pharmacy. Zeny Lam APRN.CNP [facility] 10-26-2024 Telephone encounter Note Pt phoned to tell Zeny [email or web address] for responding so quickly. Pt asking if you can send new nefedipine Rx to [facility] [place]. Reports he is almost out of 30 mg, and right now he can get the 60 mg Rx for $20, lowest perez ever. Pt would like to pick this up today. Pended. [facility] 10-25-2024 Telephone encounter Note Please let him know okay to take the total of 60 mg of his nifedipine (2 tabs of the 30 mg dose ok), I updated the med list. Zeny Lam APRN.KAYLA [facility] 10-25-2024 Telephone encounter Note Pt calls to report his bp has been consistently running higher since starting Breo. Pt reports he looked up SE of Breo and increased bp was one of them. Pt reports today bp was 141/75. Pt reports he took it a couple more times throughout the morning and the lowest it would get is 134/75/ Pt is asking if nifedipine 30 mg can be increased to 2 tabs daily since higher bp is a SE of Breo. Nifedipine 30 mg was increased to 1.5 tabs on 10/18/24. Please review and advise. Pt reports he will not need a new rx right now if dose is increased but would like dose updated in med chart. Brandi Lambert LPN [facility] 10-20-2024 History of Presen t illness Narrative Images from the original note were not included. . [facility] Note Patient name: Alex Brooks PCP: Zeny Lam APRN.DELIVERY CLERK Referring Physician: same Consultation requested by Zeny Lam for an opinion regarding SOB. My final recommendations will be communicated back to the requesting physician by way of shared Medical record or letter to requesting physician via US mail. Recording using [employer] software for draft documentation of the visit was discussed with the patient/authorized wire rope sales representative; all questions welcomed and answered. Patient/authorized wire rope sales representative agreed to proceed CC: intermittent SOB HPI: Alex Brooks 79 year old male former 20 pack year smoker, quitting in 1980 with PMH significant for h/o asthmatic bronchitis, PAD (carotid), HTN, BPH, GERD, neuropathy, HLD, recurrent PE on Coumadin, h/o Valley Fever being referred for shortness of breath. Diagnosed with asthmatic bronchitis during his teenage years. He would have yearly bouts of bronchitis with wheezing, treated with albuterol but he did not require long-term controller inhaler therapy. He he was doing well until this past year. He denied any antecedent upper respiratory infection. Rich reports intermittent dyspnea and cough with mucus production for the past 4-5 months. He notes that the dyspnea is inconsistent, sometimes occurring with minimal exertion such as walking 50-75 feet to take out the garbage, and other times not present during activities like grocery shopping. He denies wheezing but has noticed a change in his voice. He was using Flonase regularly but this made no difference in his vocal changes. The cough is infrequent, but if present he can expectorate clear mucus not particularly tenacious or thick. He has tried Percocet for dyspnea, which provided relief for 5 hours. No nocturnal awakenings. DATA: SERVICE DATE: 08/04/2024 SERVICE TIME: 12:34 PM Oral Exhaled Nitric Oxide measurement: 34.0 (ppb) PFT 08/2024: Pulmonary function testing does not confirm airways obstruction. Diffusion is normal Labs Eosinophils % % 3.0 2.1 3.9 1.0 2.0 Abs Eosin <0.46 k/uL 0.24 0.17 0.32 0.08 0.17 Imaging / Diagnostic Studies: DATE OF EXAM: Aug 25 2023 10:31AM WOX [id number] - XR CHEST 2V FRONTAL/LAT / PROCEDURE REASON: SOB (shortness of breath) EXAM DATE/TIME: 08/25/2023 10:31 AM COMPARISON: 08/19/2016 and 10/04/2015 RESULT: Lines, tubes, and devices: None. Lungs and pleura: No consolidation. No lung mass. No pleural effusion. No pneumothorax. Minimal stable atelectasis or fibrosis Cardiomediastinal silhouette: Stable cardiomediastinal silhouette. Prominence of the pulmonary arteries Bones and soft tissues: Unremarkable. ECHO 2023: CONCLUSIONS: - Exam indication: Hypertension - The left ventricle is normal in size. Left ventricular systolic function is normal. EF = 61 5% (2D biplane) Grade I left ventricular diastolic dysfunction. - The right ventricle is normal in size. Right ventricular systolic function is normal. - Exam was compared with the prior echocardiographic exam performed on 04/16/2021, no significant change. PAST MEDICAL HISTORY Diagnosis Date Asthma (HCC) as a teenager Benign prostatic hyperplasia with nocturia Bilateral carotid artery stenosis 02/14/2019 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 Carotid stenosis, left 02/21/2019 s/p CEA Closed nondisplaced fracture of distal phalanx of right great toe 01/16/2021 Colonic polyp 11/29/2018 DDD (degenerative disc disease), lumbar 03/08/2014 Elevated prostate specific antigen (PSA) 09/15/2016 Esophageal reflux Fall at home 01/05/2018 Right Rib Fracture Hypertension Hypertrophy of prostate with urinary obstruction and other lower urinary tract symptoms (LUTS) 09/04/2008 With mild night-time symptoms, exam ok as of 09/2008 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 Related to sugar? -- see fasting glucose 2008; Impaired fasting glucose 10/11/2008 Under 110; See labs 10/12 INSOMNIA NOS 09/04/2008 Doing well with as-needed benzo at night Left bundle branch block 05/28/2010 Lumbago 02/23/2009 Lumbosacral spondylosis without myelopathy 08/07/2011 Lung disease Valley Fever Macular hole of left eye 06/19/2020 Mixed hyperlipidemia 10/05/2008 Neuropathy Nuclear sclerosis of right eye PE (pulmonary embolism) 09/04/2011 Peripheral vascular disease Perirectal abscess 12/12/2008 Postconcussion syndrome 11/11/2011 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) 05/08/2014 Traumatic intracerebral hemorrhage (HCC) 09/26/2011 Ureterolithiasis 05/07/2011 ALLERGIES Allergen Reactions Cyclobenzaprine Other: See Comments Double vision Gabapentin Intolerance Bad interaction with Warfarin Keflex [Cephalexin] Rash NIFEdipine ER (PROCARDIA XL) 30 mg 24 hr tablet Take 1.5 tablets daily potassium chloride (KLOR-CON 10) 10 mEq tablet Take 1 tablet by mouth two times a day. warfarin (COUMADIN) 5 mg tablet As directed, currently taking as alternating every other day with taking 7.5 mg and 5 mg, plan for max dose of 10 mg per day at this time. rosuvastatin (CRESTOR) 40 mg tablet Take 1 tablet by mouth once daily. famotidine (PEPCID) 40 mg tablet Take 1 tablet by mouth once daily as needed. (Patient taking differently: Take 40 mg by mouth once daily.) pantoprazole DR (PROTONIX) 40 mg tablet take 1 tablet by mouth once daily ON AN EMPTY STOMACH 30 MINUTES PRIOR TO A MEAL (Patient taking differently: Using as needed) vitamin B complex (B COMPLEX 1 ORAL) Take 1 tablet by mouth once daily. coenzyme Q10 (COENZYME Q-10) 100 mg cap capsule Take 400 mg by mouth once daily. Cyanocobalamin 2,500 mcg subl Dissolve under the tongue twice daily. multivitamin (SOFYA MULTIVITAMIN) tablet Take 1 tablet by mouth once daily. fluticasone-vilanterol (BREO ELLIPTA) 100-25 mcg/dose inhaler Inhale 1 inhalation as instructed once daily. LORazepam (ATIVAN) 2 mg tab Take 1 tablet by mouth at bedtime as needed (insomnia) for up to 180 days. oxyCODONE-acetaminophen (PERCOCET) 7.5-325 mg tablet Take 1 tablet by mouth every 6 hours as needed for pain for up to 7 days. cloNIDine HCl (CATAPRES) 0.1 mg tablet Take 1-2 tablets by mouth three times a day as needed (for SBP greater than 150). hydrocortisone 2.5 % cream Seldom calcium, elemental, tab Take 600 mg by mouth twice daily. 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: Cat FAMILY HISTORY Problem Relation Age of Onset Hypertension Mother (longevity on mom's side) Cataract Mother Coronary Artery Disease Father father who of sudden cardiac arrest age 74 Heart Father heart stopped Blood Disease Brother pulmonary embolism history No Known Problems Maternal Grandmother No Known Problems Maternal Grandfather No Known Problems Paternal Grandmother Heart Paternal Grandfather Colon Cancer Other no close relatives known Prostate Cancer Other none Emphysema Other none PAST SURGICAL HISTORY Procedure Laterality Date CAROTID ENDARTERECTOMY Left 06/10/2019 Left CEA, bovine patch angioplasty COLONOSCOPY FLX DX W/COLLJ SPEC WHEN PFRMD 11/10/2008 COLONOSCOPY SCREENING 03/24/2022 COLONSCOPY W/DECOMPRESS 11/29/2018 EGD TRANSORAL BIOPSY SINGLE/MULTIPLE 11/10/2008 EXTRACTION, ERUPTED TOOTH OR EXPOSED ROOT (ELEVATION AND/OR FORCEPS REMOVAL) 1974 wisdom teeth F COLONOSCOPY WITH BIOPSY 11/29/2018 PAST SURGICAL HISTORY OF Left 1956 complex lac left hand, as a child PAST SURGICAL HISTORY OF 05/04/2013 Pars plana vitrectomy. REMV CATARACT EXTRACAP,INSERT LENS Left TRANSCATH RETRIEVAL,PERCUT 09/20/2012 IVC filter retrieval TRIESENCE INTRAVITREAL INJECTION OS (LEFT EYE) 10/25/2013 VENA CAVA FILTER 09/26/2011 later removed PMH, Social history, family history and surgical history reviewed and updated in EMR REVIEW OF SYSTEMS: CONSTITUTIONAL: No fevers, chills, nightsweats, unintended weight loss HEENT: Nasal congestion, possible allergies, vocal changes EYES: No diplopia or blurry vision. CARDIOVASCULAR: No chest pain, palpitations, orthopnea, edema. PULM: See HPI GI: No dysphagia/odynophagia, problematic reflux NEURO: No balance problems, peripheral weakness/paresthesias or numbness of concern. MUSC-SKEL: No joint pain, swelling, or erythema. INTEGUMENTARY: No new skin changes PHYSICAL EXAMINATION: BP 132/82 Pulse 114 Resp 17 SpO2 96% General Appearance: Age appropriate, NAD. Skin: Skin color, texture, turgor normal, no suspicious rashes or lesions. Head: Normocephalic, no masses, lesions, tenderness or abnormalities. Eyes: Sclera, conjunctiva normal. Oropharynx: No oral lesions or posterior pharyngeal cobblestoning. Neck: No masses or adenopathy. Lungs: Labored, normal to percussion, no wheezes or crackles. Heart: Regular rate and rhythm, no murmurs. Extremities: Bilateral lower extremity braces, no edema, no clubbing. Assessment/Plan: 1. Shortness of breath -Etiology of his intermittent shortness of breath is most likely related to airways disease in light of his history of asthmatic bronchitis. However, he has a history of recurrent pulmonary embolism so chronic thromboembolic disease is always a possibility. He had a chest x-ray 1 year ago that showed prominent pulmonary arteries but subsequent echocardiogram did not confirm pulmonary hypertension -Update chest x-ray 2. Mild persistent asthma uncomplicated -Exhaled nitric oxide level slightly elevated consistent with asthma -Started Breo Ellipta 100/25 -Allergy assessment -Surveillance exhaled nitric oxide level 3. History of pulmonary embolism - See #1 Mirlande Funez MD [facility] documented in this encounter [facility] 10-17-2024 Telephone encounter Note Spoke to patient and he advised can do 30 mg 1.5 tablets. Did recheck his blood pressure right before phone call and was 126/80 but will watch BP closely to make sure does not drop low. Patient does not need rx resent just updated to med list. Mirlande Maria MA [facility] 10-17-2024 Miscellaneous Notes Spoke to patient and he advised can do 30 mg 1.5 tablets. Did recheck his blood pressure right before phone call and was 126/80 but will watch BP closely to make sure does not drop low. Patient does not need rx resent just updated to med list. Mirlande Maria MA For nifedipine there is no 40 mg dose, we can do either 1 tablet of the 30 mg OR 1 tablet of the 60 mg dose OR 1.5 tablets of the 30 mg dose to equal 45 mg if he feels he can split the tablet without much issue. Please see what he wants to do and let me know. patient is calling in stating that he was taken off losartan 40mg and and was placed back on nifedipine 30mg. Patient states that since the change his average BP is 125/74. Patient states that with losartan BP average was 115/70. Patient is asking to have the nifedipine increased to 40mg to take BP even lower to possible the range he was on with the losartan. If so patient would like rx sent to [facility]. Please review and advise (neither medications are on patients current medication list) Patient will need called back with information. documented in this encounter [facility] 10-17-2024 Telephone encounter Note For nifedipine there is no 40 mg dose, we can do either 1 tablet of the 30 mg OR 1 tablet of the 60 mg dose OR 1.5 tablets of the 30 mg dose to equal 45 mg if he feels he can split the tablet without much issue. Please see what he wants to do and let me know. [facility] 10-17-2024 Telephone encounter Note patient is calling in stating that he was taken off losartan 40mg and and was placed back on nifedipine 30mg. Patient states that since the change his average BP is 125/74. Patient states that with losartan BP average was 115/70. Patient is asking to have the nifedipine increased to 40mg to take BP even lower to possible the range he was on with the losartan. If so patient would like rx sent to [facility]. Please review and advise (neither medications are on patients current medication list) Patient will need called back with information. [facility] 10-14-2024 Telephone encounter Note Patient notified of results and provider's instructions. Patient verbalizes understanding. Kristina Youssef LPN [facility] 10-14-2024 Miscellaneous Notes Patient notified of results and provider's instructions. Patient verbalizes understanding. Kristina Youssef LPN Okay, noted, continue with current dose of coumadin and ok to repeat INR for when he has scheduled. Last INR: INR Home CoaguChek 2.6 10/14/2024 Current dose of coumadin is: 7.5 mg alternates with 5 mg every other day. . Last date of dose change: 09/07/2024 Previous INR (date and result): 10/05/04 1.8 Additional Clinical Information or narrative: yes: No missed dosages No changes in diet No unusual bleeding/bruising No Alcohol Patient wanted to let Zeny know that last lab draw when INR was on the lower side he had a different hr operations advisor and she didn't fill the tube all the way to the top (he thought that might contribute to the lower reading). Patient already scheduled for 10/28/2024 for next INR. Antoinette Meadows RN documented in this encounter [facility] 10-14-2024 Telephone encounter Note Okay, noted, continue with current dose of coumadin and ok to repeat INR for when he has scheduled. [facility] 10-14-2024 Telephone encounter Note Last INR: INR Home CoaguChek 2.6 10/14/2024 Current dose of coumadin is: 7.5 mg alternates with 5 mg every other day. . Last date of dose change: 09/07/2024 Previous INR (date and result): 10/05/04 1.8 Additional Clinical Information or narrative: yes: No missed dosages No changes in diet No unusual bleeding/bruising No Alcohol Patient wanted to let Zeny know that last lab draw when INR was on the lower side he had a different hr operations advisor and she didn't fill the tube all the way to the top (he thought that might contribute to the lower reading). Patient already scheduled for 10/28/2024 for next INR. Antoinette Meadows RN [facility] 10-11-2024 Telephone encounter Note Patient notified of below recommendation, verbalized understanding. Kari Briones LPN [facility] 10-11-2024 Miscellaneous Notes Patient notified of below recommendation, verbalized understanding. Kari Briones LPN My concern is that it took a while to get his bp back to being controlled. I'm okay with him trying the switch but I would monitor blood pressure closely and wait to make any further additional changes until seen with pulmonary. Pt called in to see if provider had looked at provider had replied to his message yet. I let him know that she hadn't, but I would send her a message about it. Pt states he feels a little bit better since he has stopped taking it, but knows it stays in your sytem for a while. Pt reports his BP this morning was 123/77 HR 71 and at 430 pm BP was 123/74 HR 71. Pt knows he has the PRN Clonidine to take if his SBP is greater than 150. Please call Pt back and advise. Cyndy Whelan RN Patient calls to check on status of MC messages. Changed into a TE. Patient reports no CP, cough, dizziness, fever. Reports he has Shortness of Breath with any type of ambulation at about 10 feet. Reports he is not able to bend over to tie his shoes. Not interested in ER. Requesting Zeny's response in regards of below: Cedric Pierre directly. Still having shortness of breath issues. Seeing Doctor Angelo on October 20. Was thinking about when this started and it was about the same time as I started taking Olmesartan. Looked up the possible side effects of Olmesartan at the NIH website and it said shortness of breath is one of the serious side effects of Olmesartan. What do you think? Is this possible? If you believe that I should cease the Olmesartan, eventhough we stopped the prescription of Nifedipine, I still have several tablets left. I haven't taken it since we stopped it about three or four months ago. Rich Looked up Nifedipine as well. It can cause shortness of breath but not as a serious side effect like Olmesartan. It was listed as a common side effect. Sorry for being a pain in the ass but this shortness of breath issue has been going on for too long. Please review and advise, Antoinette Meadows RN documented in this encounter [facility] 10-11-2024 Telephone encounter Note My concern is that it took a while to get his bp back to being controlled. I'm okay with him trying the switch but I would monitor blood pressure closely and wait to make any further additional changes until seen with pulmonary. [facility] 10-10-2024 Telephone encounter Note Pt called in to see if provider had looked at provider had replied to his message yet. I let him know that she hadn't, but I would send her a message about it. Pt states he feels a little bit better since he has stopped taking it, but knows it stays in your sytem for a while. Pt reports his BP this morning was 123/77 HR 71 and at 430 pm BP was 123/74 HR 71. Pt knows he has the PRN Clonidine to take if his SBP is greater than 150. Please call Pt back and advise. Cyndy Whelan RN [facility] 10-10-2024 Telephone encounter Note See TE. Patient aware closing MC message. Antoinette Meadows RN [facility] 10-10-2024 Miscellaneous Notes See TE. Patient aware closing MC message. Antoinette Meadows RN documented in this encounter [facility] 10-10-2024 Telephone encounter Note See TE 10/10/2024. Patient aware closing MC message. Antoinette Meadows RN [facility] 10-10-2024 Miscellaneous Notes See TE 10/10/2024. Patient aware closing MC message. Antoinette Meadows RN documented in this encounter [facility] 10-10-2024 Telephone encounter Note Patient calls to check on status of MC messages. Changed into a TE. Patient reports no CP, cough, dizziness, fever. Reports he has Shortness of Breath with any type of ambulation at about 10 feet. Reports he is not able to bend over to tie his shoes. Not interested in ER. Requesting Zeny's response in regards of below: Cedric Pierre directly. Still having shortness of breath issues. Seeing Doctor Angelo on October 20. Was thinking about when this started and it was about the same time as I started taking Olmesartan. Looked up the possible side effects of Olmesartan at the NIH website and it said shortness of breath is one of the serious side effects of Olmesartan. What do you think? Is this possible? If you believe that I should cease the Olmesartan, eventhough we stopped the prescription of Nifedipine, I still have several tablets left. I haven't taken it since we stopped it about three or four months ago. Rich Looked up Nifedipine as well. It can cause shortness of breath but not as a serious side effect like Olmesartan. It was listed as a common side effect. Sorry for being a pain in the ass but this shortness of breath issue has been going on for too long. Please review and advise, Antoinette Meadows RN [facility] 10-05-2024 Telephone encounter Note Pt called and is notified of providers results and instructions. Pt voices understanding. Updated Anticoag tracker. Changed Pt's INR appointment. Cyndy Whelan, MORIAH [facility] 10-05-2024 Miscellaneous Notes Pt called and is notified of providers results and instructions. Pt voices understanding. Updated Anticoag tracker. Changed Pt's INR appointment. Cyndy Whelan, RN Since it is his first low then it is okay to continue current coumadin dosing and then repeat INR in 1 week. Thanks. Last INR: INR Home CoaguChek 1.8 10/05/2024 Current dose of coumadin is: 7.5 mg alternates with 5 mg every other day. . Last date of dose change: 09/07/2024. Previous INR (date and result): 2.9 09/21/2024 Additional Clinical Information or narrative: yes: No missed dosages No changes in diet No unusual bleeding/bruising No Alcohol Patient already has INR recheck scheduled for next Thursday10/12/2024 because patient states that PCP will want him to recheck in one week. Please review and advise, Tammie Munguia RN documented in this encounter [facility] 10-05-2024 Telephone encounter Note Since it is his first low then it is okay to continue current coumadin dosing and then repeat INR in 1 week. Thanks. [facility] 10-05-2024 Telephone encounter Note Last INR: INR Home CoaguChek 1.8 10/05/2024 Current dose of coumadin is: 7.5 mg alternates with 5 mg every other day. . Last date of dose change: 09/07/2024. Previous INR (date and result): 2.9 09/21/2024 Additional Clinical Information or narrative: yes: No missed dosages No changes in diet No unusual bleeding/bruising No Alcohol Patient already has INR recheck scheduled for next Thursday10/12/2024 because patient states that PCP will want him to recheck in one week. Please review and advise, Tammie Munguia RN [facility] 09-23-2024 Telephone encounter Note Patient notified of providers message and verbalized understanding [facility] 09-23-2024 Miscellaneous Notes Patient notified of providers message and verbalized understanding No change Recheck in 2 weeks Noted in initial message patient knew that would stay on same dose and recheck in 2 weeks Pt checking on provider's recommendation. Patient calls to see the status of this request. Please review and advise, Tammie Munguia RN Last INR: INR Home CoaguChek 2.9 09/21/2024 Current dose of coumadin is: 7.5 mg alternates with 5 mg every other day. Last date of dose change: 09/07/24. Previous INR (date and result): 09/07/24, 3.0 Additional Clinical Information or narrative: yes: No unusual bleeding or bruising, no recent AB's, no diet changes, no alcohol, no missed doses. Pt states he will continue current dose, and knows provider will tell him to check INR in 2 weeks, and we scheduled the appt for INR lab at the [facility] lab on [place] on 10/05/24. documented in this encounter [facility] 09-23-2024 Telephone encounter Note No change Recheck in 2 weeks Noted in initial message patient knew that would stay on same dose and recheck in 2 weeks [facility] Work Phone: 09-23-2024 Telephone encounter Note Pt checking on provider's recommendation. [facility] 09-22-2024 Telephone encounter Note Patient calls to see the status of this request. Please review and advise, Tammie Munguia RN [facility] 09-21-2024 Telephone encounter Note Duplicate entry [facility] 09-21-2024 Miscellaneous Notes Duplicate entry Last INR: INR Home CoaguChek 2.9 09/21/2024 Current dose of coumadin is: 5 mg alternating with 7.5 mg . Last date of dose change: 09/07/24. Previous INR (date and result): 09/07/24 3.0 Additional Clinical Information or narrative: no documented in this encounter [facility] 09-21-2024 Telephone encounter Note Last INR: INR Home CoaguChek 2.9 09/21/2024 Current dose of coumadin is: 7.5 mg alternates with 5 mg every other day. Last date of dose change: 09/07/24. Previous INR (date and result): 09/07/24, 3.0 Additional Clinical Information or narrative: yes: No unusual bleeding or bruising, no recent AB's, no diet changes, no alcohol, no missed doses. Pt states he will continue current dose, and knows provider will tell him to check INR in 2 weeks, and we scheduled the appt for INR lab at the [facility] lab on MR on 10/05/24. [facility] 09-21-2024 Telephone encounter Note Last INR: INR Home CoaguChek 2.9 09/21/2024 Current dose of coumadin is: 5 mg alternating with 7.5 mg . Last date of dose change: 09/07/24. Previous INR (date and result): 09/07/24 3.0 Additional Clinical Information or narrative: no [facility] 09-19-2024 Telephone encounter Note Pt called and is notified of providers message and instructions. Pt voices understanding. Cyndy Whelan RN [facility] 09-19-2024 Miscellaneous Notes Pt called and is notified of providers message and instructions. Pt voices understanding. Cyndy Whelan RN Please let him know I ordered labs and he will also be due for a urine test so I ordered that too. Pt has OV appt with Lauryn Lam CNP on 11/15/24. He is asking if provider would place any lab orders for him to complete prior to this appt. Please call patient with an update. Graciela Parker RN documented in this encounter [facility] 09-19-2024 Telephone encounter Note Please let him know I ordered labs and he will also be due for a urine test so I ordered that too. [facility] 09-15-2024 Telephone encounter Note Pt. notified will discuss further imaging after appt. Edgar Landa LPN [facility] 09-15-2024 Miscellaneous Notes Pt. notified will discuss further imaging after appt. Edgar Landa LPN Patient was ordered CT Chest by PCP but would like to postpone until after his consult appointment on 10/20. His last CXR was August 2023. Asking if imaging is indicated prior to appt? Edgar Landa LPN documented in this encounter [facility] 09-14-2024 Telephone encounter Note Patient was ordered CT Chest by PCP but would like to postpone until after his consult appointment on 10/20. His last CXR was August 2023. Asking if imaging is indicated prior to appt? Edgar Landa LPN [facility] 09-14-2024 Telephone encounter Note Pt has OV appt with Lauryn Lam CNP on 11/15/24. He is asking if provider would place any lab orders for him to complete prior to this appt. Please call patient with an update. Graciela Parker RN [facility] 09-12-2024 Telephone encounter Note PATIENT NOTIFIED OF SAME. Will call back to schedule after verifing Dr. Funez is in network. [facility] 09-12-2024 Miscellaneous Notes PATIENT NOTIFIED OF SAME. Will call back to schedule after verifing Dr. Funez is in network. Please let him know that I think it might be more beneficial at this point for him to follow up with seeing pulmonary (already has a consult placed) rather than repeat the PFTs. Patient calls and is asking if he needs to get pulmonary function test done again since patient states the previous test was not done right? Patient states that he is going to talk to insurance on whether he can get testing done again? Patient also asking if not then does Zeny want to get a different person to read previous testing? Please review and advise, Tammie Munguia RN documented in this encounter [facility] 09-12-2024 Telephone encounter Note Please let him know that I think it might be more beneficial at this point for him to follow up with seeing pulmonary (already has a consult placed) rather than repeat the PFTs. [facility] 09-12-2024 Telephone encounter Note Patient calls and is asking if he needs to get pulmonary function test done again since patient states the previous test was not done right? Patient states that he is going to talk to insurance on whether he can get testing done again? Patient also asking if not then does Zeny want to get a different person to read previous testing? Please review and advise, Tammie Munguia RN [facility] 09-09-2024 Telephone encounter Note PDMP website checked and validated. All prescriptions have been APPROPRIATELY filled. No suspicious activity was identified. 09/09/2024 by Zeny Lam APRN.CNP [facility] 09-09-2024 Miscellaneous Notes PDMP website checked and validated. All prescriptions have been APPROPRIATELY filled. No suspicious activity was identified. 09/09/2024 by Zeny Lam APRN.CNP The patient has been identified by name and date of : Yes Caregiver verified no other encounters exist for this prescription request: Yes Caregiver confirmed with patient/requestor that no other refills are due, in the near future, with this provider at this time: Yes The last office visit in the department: 08/15/2024 Does the patient have a future office visit with this provider/department: Yes 11/15/2024 Requested Prescriptions Pending Prescriptions Disp Refills LORazepam (ATIVAN) 2 mg tab 90 tablet 1 Sig: Take 1 tablet by mouth at bedtime as needed (insomnia) for up to 180 days. Patient is changing to [facility] pharmacy since [facility] is closing October 02. Tala Torres LPN September 08, 2024 11:27 AM documented in this encounter [facility] 09-08-2024 Telephone encounter Note The patient has been identified by name and date of : Yes Caregiver verified no other encounters exist for this prescription request: Yes Caregiver confirmed with patient/requestor that no other refills are due, in the near future, with this provider at this time: Yes The last office visit in the department: 08/15/2024 Does the patient have a future office visit with this provider/department: Yes 11/15/2024 Requested Prescriptions Pending Prescriptions Disp Refills LORazepam (ATIVAN) 2 mg tab 90 tablet 1 Sig: Take 1 tablet by mouth at bedtime as needed (insomnia) for up to 180 days. Patient is changing to [facility] pharmacy since [facility] is closing October 02. Tala Torres LPN September 08, 2024 11:27 AM [facility] 09-07-2024 Telephone encounter Note PATIENT NOTIFIED OF SAME. Tracker updated. [facility] 09-07-2024 Miscellaneous Notes PATIENT NOTIFIED OF SAME. Tracker updated. Okay to do the next INR on 09/21/2024, I would recommend he stop taking the 10 mg dose and stick with 5 mg alternating with 7.5 mg since last 2 INRs have been a little higher. Last INR: INR Home CoaguChek 3.0 09/07/2024 Current dose of coumadin is: 5 mg alternating with 7.5 mg. Takes 10 mg before he tests on Thursday. Last date of dose change: 05/18/24 Previous INR (date and result): 3.1 on 08/24/24 Additional Clinical Information or narrative: No current recent bleeding or bruising, no recent diet changes, no recent antibiotics, no recent alcohol use. 1) Pt requested to make his next lab INR appt for 09/21/24, if provider is agreeable with this date. 2)Please call patient with response to current INR and with any other orders. Graceila Parker RN documented in this encounter [facility] 09-07-2024 Telephone encounter Note Okay to do the next INR on 09/21/2024, I would recommend he stop taking the 10 mg dose and stick with 5 mg alternating with 7.5 mg since last 2 INRs have been a little higher. [facility] 09-07-2024 Telephone encounter Note Last INR: INR Home CoaguChek 3.0 09/07/2024 Current dose of coumadin is: 5 mg alternating with 7.5 mg. Takes 10 mg before he tests on Thursday. Last date of dose change: 05/18/24 Previous INR (date and result): 3.1 on 08/24/24 Additional Clinical Information or narrative: No current recent bleeding or bruising, no recent diet changes, no recent antibiotics, no recent alcohol use. 1) Pt requested to make his next lab INR appt for 09/21/24, if provider is agreeable with this date. 2)Please call patient with response to current INR and with any other orders. Graciela Parker RN [facility] 09-05-2024 Telephone encounter Note PDMP website checked and validated. All prescriptions have been APPROPRIATELY filled. No suspicious activity was identified. 09/05/2024 by Zeny Lam APRN.KAYLA [facility] 09-05-2024 Miscellaneous Notes PDMP website checked and validated. All prescriptions have been APPROPRIATELY filled. No suspicious activity was identified. 09/05/2024 by Zeny Lam APRN.KAYLA Prescription Refill Information The patient has been identified by name and date of : Yes Caregiver verified no other encounters exist for this prescription request: Yes Caregiver confirmed with patient/requestor that no other refills are due, in the near future, with this provider at this time: Yes The last office visit in the department: 08/15/24 Does the patient have a future office visit with this provider/department: Yes 11/15/24 Requested Prescriptions Pending Prescriptions Disp Refills oxyCODONE-acetaminophen (PERCOCET) 7.5-325 mg tablet 28 tablet 0 Sig: Take 1 tablet by mouth every 6 hours as needed for pain for up to 7 days. Gabby Rm LPN September 05, 2024 2:38 PM documented in this encounter [facility] 09-05-2024 Telephone encounter Note Prescription Refill Information The patient has been identified by name and date of : Yes Caregiver verified no other encounters exist for this prescription request: Yes Caregiver confirmed with patient/requestor that no other refills are due, in the near future, with this provider at this time: Yes The last office visit in the department: 08/15/24 Does the patient have a future office visit with this provider/department: Yes 11/15/24 Requested Prescriptions Pending Prescriptions Disp Refills oxyCODONE-acetaminophen (PERCOCET) 7.5-325 mg tablet 28 tablet 0 Sig: Take 1 tablet by mouth every 6 hours as needed for pain for up to 7 days. Gabby Rm LPN September 05, 2024 2:38 PM [facility] 09-05-2024 Telephone encounter Note The patient has been identified by name and date of : Yes Caregiver verified no other encounters exist for this prescription request: Yes Caregiver confirmed with patient/requestor that no other refills are due, in the near future, with this provider at this time: Yes The last office visit in the department: 08/15/2024 Does the patient have a future office visit with this provider/department: Yes 11/15/2024 Requested Prescriptions Pending Prescriptions Disp Refills olmesartan (BENICAR) 40 mg tablet 90 tablet 1 Sig: Take 1 tablet by mouth once daily. potassium chloride (KLOR-CON 10) 10 mEq tablet 180 tablet 3 Sig: Take 1 tablet by mouth two times a day. warfarin (COUMADIN) 5 mg tablet 180 tablet 3 Sig: As directed, currently taking as alternating every other day with taking 7.5 mg and 5 mg, plan for max dose of 10 mg per day at this time. rosuvastatin (CRESTOR) 40 mg tablet 90 tablet 3 Sig: Take 1 tablet by mouth once daily. famotidine (PEPCID) 40 mg tablet 90 tablet 1 Sig: Take 1 tablet by mouth once daily as needed. Tammie Munguia RN September 05, 2024 12:53 PM [facility] 09-05-2024 Miscellaneous Notes The patient has been identified by name and date of : Yes Caregiver verified no other encounters exist for this prescription request: Yes Caregiver confirmed with patient/requestor that no other refills are due, in the near future, with this provider at this time: Yes The last office visit in the department: 08/15/2024 Does the patient have a future office visit with this provider/department: Yes 11/15/2024 Requested Prescriptions Pending Prescriptions Disp Refills olmesartan (BENICAR) 40 mg tablet 90 tablet 1 Sig: Take 1 tablet by mouth once daily. potassium chloride (KLOR-CON 10) 10 mEq tablet 180 tablet 3 Sig: Take 1 tablet by mouth two times a day. warfarin (COUMADIN) 5 mg tablet 180 tablet 3 Sig: As directed, currently taking as alternating every other day with taking 7.5 mg and 5 mg, plan for max dose of 10 mg per day at this time. rosuvastatin (CRESTOR) 40 mg tablet 90 tablet 3 Sig: Take 1 tablet by mouth once daily. famotidine (PEPCID) 40 mg tablet 90 tablet 1 Sig: Take 1 tablet by mouth once daily as needed. Tammie Munguia RN September 05, 2024 12:53 PM documented in this encounter [facility] 08-22-2024 Telephone encounter Note Okmanuel noted, if he wants to wait that is okay. [facility] 08-22-2024 Miscellaneous Notes Kamlesh noted, if he wants to wait that is okay. Pt phoned back to tell Zeny shabazz message below. He spoke with [employer] and figured it out. Pt states he wants to wait a few weeks to get the CT done, unless you think he should do it sooner. States he wants to see if there's another cause, possibly allergies. Patient phoned to ask Zeny, does the CT chest W IVCON use high or low dose. Pt states you can reply to him via [facility] or telephone. documented in this encounter [facility] 08-19-2024 Telephone encounter Note Pt phoned back to tell Zeny shabazz message below. He spoke with [employer] and figured it out. Pt states he wants to wait a few weeks to get the CT done, unless you think he should do it sooner. States he wants to see if there's another cause, possibly allergies. [facility] 08-19-2024 Telephone encounter Note Patient phoned to ask Zeny, does the CT chest W IVCON use high or low dose. Pt states you can reply to him via [facility] or telephone. [facility] 08-15-2024 History of Presen t illness Narrative Images from the original note were not included. Alex Brooks is a 78 year old male here for a Medicare wellness visit. Medicare Health Risk Assessment General Health Good Exercise: Minutes/Day 0 min Exercise: Days/Week 0 days Alcohol: Daily Use Monthly or less Alcohol: Drinks/Day 3 or 4 Alcohol: 6 or more drinks Never Feel off balance Yes Concerns: Teeth/Dentures No Concerns: Sexual function No Troubled by feelings Irritable Frequency: Eating healthy diet Several days ADLs requiring help Housework Safety precautions in home/vehicle Yes Smoke, vape, chews tobacco No Difficulty hearing No Difficulty seeing Yes Current Providers Specialists: I have reviewed specialist-related care of the patient in the medical record. Current care team: Patient Care Team: Zeny Lam APRN.CNP as PCP - General (Internal Medicine) Mckinley Jaramillo DO as Consulting (Hematology/Oncology) Mj Dos Santos MD as Bi Tri Operator (Cardiology) Medical/Family history review Reviewed and updated problem list, medical/surgical/family/social history, medications, and allergies. Opioid use review Opioid Medications (last 90 days) 08/01/2024 23:59 Opioid Medications oxycodone HCl/acetaminophen -Rx End Details Outpatient prescription Anxiety/Depression screening PHQ-2 Score: 2 (Lower risk for depression) JANET-7 Score: 5 (Mild Anxiety) Recommendation: no further intervention at this time Cognitive screening Did BACH test Functional Observation Was the patient's Timed Up & Go test unsteady or >= 12 seconds? No Advance Care Planning Surrogate decision maker and/or advance care plan documented Measurements BP 100/74 Pulse 96 Ht 180 cm (5' 10.87) Wt 87.2 kg (192 lb 3.9 oz) SpO2 97% BMI 26.91 kg/m Vision Screening: Follows with optometry/ophthalmology SUBJECTIVE Alex Brooks is a 78 year old male here today for a check up on his medical problems. Chief Complaint Patient presents with: Medicare Wellness Exam: had seen podiatry and a growth was removed but wound is no healing of left great toe HPI Rich is a 78-year-old male with a history of neuropathy, presenting with concerns about a toe injury, shortness of breath, and memory issues. Rich reports a toe injury sustained during a recent podiatry visit. He is on Coumadin and notes that the parenting skills instructor was aware of this. During the visit, the parenting skills instructor attempted to trim a difficult toenail on the left foot using pliers, causing significant pain and subsequent bleeding. Additionally, a small growth was removed, which also bled. Rich reports that three days later, he noticed his bathroom floor covered in blood from his toe. This morning, after cleaning the area with alcohol, and Betadine, he observed that the site of the growth removal started bleeding again. He expresses concern about a potential infection due to the redness and ongoing bleeding. He has been using Band-Aids to manage the bleeding and inquires about the use of gauze. He also mentions a recent conversation with a parenting skills instructor who advised him to use gauze. Rich also reports episodes of shortness of breath, particularly noticeable after returning home from outings. He recalls a similar experience during a previous episode of [place] Fever, which involved multiple diagnostic tests, including a bronchoscopy. He mentions a recent pulmonary function test, which he found challenging due to coughing, and inquires about the results. He also questions whether his shortness of breath could be related to allergies, noting recent eye allergies treated with eye drops. He denies significant improvement with the use of an inhaler. He has a history of asthma during childhood, which resolved during his undergraduate studies. Rich expresses concerns about his short-term memory, noting frequent forgetfulness in daily tasks. He reports a strong long-term memory but increasing difficulty with short-term recall. He mentions a previous brain CT scan in February, which was normal, and expresses interest in repeating a cognitive test due to perceived issues during the initial test. Rich is currently undergoing acupuncture treatments for neuropathy, reporting sensations in his legs and ankles during sessions. He is also monitoring his blood pressure, noting variability in readings depending on the timing of his olmesartan dose. He expresses satisfaction with his current readings but inquires about the possibility of adjusting his medication regimen. Rich reports a significant reduction in alcohol consumption, which he believes has positively impacted his blood glucose levels. He has reduced his intake from nearly a bottle of wine daily to one or two bottles per month. He also mentions taking calcium supplements every three days and inquires about the appropriateness of this regimen. His medications were reviewed today and his list is now up to date. Medications Current Outpatient Medications Medication Sig cloNIDine HCl (CATAPRES) 0.1 mg tablet Take 1-2 tablets by mouth three times a day as needed (for SBP greater than 150). olmesartan (BENICAR) 40 mg tablet Take 1 tablet by mouth once daily. LORazepam (ATIVAN) 2 mg tab Take 1 tablet by mouth at bedtime as needed (insomnia) for up to 180 days. famotidine (PEPCID) 40 mg tablet Take 1 tablet by mouth once daily as needed. rosuvastatin (CRESTOR) 40 mg tablet Take 1 tablet by mouth once daily. warfarin (COUMADIN) 5 mg tablet As directed, currently taking as alternating every other day with taking 7.5 mg and 5 mg, plan for max dose of 10 mg per day at this time. pantoprazole DR (PROTONIX) 40 mg tablet take 1 tablet by mouth once daily ON AN EMPTY STOMACH 30 MINUTES PRIOR TO A MEAL potassium chloride (KLOR-CON 10) 10 mEq tablet Take 1 tablet by mouth two times a day. hydrocortisone 2.5 % cream Seldom vitamin B complex (B COMPLEX 1 ORAL) Take 1 tablet by mouth once daily. coenzyme Q10 (COENZYME Q-10) 100 mg cap capsule Take 400 mg by mouth once daily. Cyanocobalamin 2,500 mcg subl Dissolve under the tongue twice daily. calcium, elemental, tab Take 600 mg by mouth twice daily. multivitamin (SOFYA MULTIVITAMIN) tablet Take 1 tablet by mouth once daily. amoxicillin-clavulanate potassium (AUGMENTIN) 875-125 mg per tablet Take 1 tablet by mouth two times a day for 10 days. oxyCODONE-acetaminophen (PERCOCET) 7.5-325 mg tablet Take 1 tablet by mouth every 6 hours as needed for pain for up to 7 days. No current facility-administered medications for this visit. ALLERGIES Allergen Reactions Cyclobenzaprine Other: See Comments Double vision Gabapentin Intolerance Bad interaction with Warfarin Keflex [Cephalexin] Rash ACTIVE PROBLEM LIST Compression Fracture of L1 Lumbar Vertebra (Hcc) - 07/15/2023 Sciatic Leg Pain - 07/15/2023 Bilateral Carotid Artery Stenosis - 06/15/2023 Acute Gastritis Without Hemorrhage - 04/20/2023 Spinal Stenosis of Lumbar Region - 09/24/2022 Pad (Peripheral Artery Disease) - 08/16/2021 Kidney Insufficiency - 04/04/2021 Posterior Vitreous Detachment of Right Eye - 06/19/2020 Age-Related Nuclear Cataract of Right Eye - 06/19/2020 Balance Problem - 03/12/2020 History of Left-Sided Carotid Endarterectomy - 06/10/2019 Colonic Polyp - 11/29/2018 Usp (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 Hypercoag studies all have been neg as of 05/2014. Bro w/hypercoag W/U previously as well. Gerd (Gastroesophageal Reflux Disease) - 02/17/2014 Htn (Hypertension) - 07/02/2009 Comment: 03/24/2023: Home BP Cuff Validated. Home BP: 114/71 93 Office BP: 100/56 96 Lumbago - 02/23/2009 Impaired Fasting Glucose - 10/11/2008 Comment: Under 110; See labs 10/12 Hereditary and Idiopathic Peripheral Neuropathy - 10/05/2008 Mixed Hyperlipidemia - 10/05/2008 Benign Prostatic Hyperplasia With Nocturia - 09/04/2008 Insomnia, unspecified - 09/04/2008 Social History Tobacco Use Smoking status: Former Current packs/day: 0.00 Average packs/day: 1 pack/day for 20.0 years (20.0 ttl pk-yrs) Types: Cigarettes Start date: 04/06/1960 Quit date: 04/06/1980 Years since quittin.3 Smokeless tobacco: Never Vaping Use Vaping status: Never Used Substance Use Topics Alcohol use: Not Currently Comment: stopped 07/19/2022 Drug use: Yes Frequency: 7.0 times per week Types: Marijuana Review of Systems Constitutional: Negative. Respiratory: Negative. Cardiovascular: Negative. OBJECTIVE BP 100/74 Pulse 96 Ht 5' 10.866 (1.80m) Wt 192 lb 3.9 oz (87.2kg) SpO2 97% BMI 26.91 kg/(m^2). Physical Exam Vitals and nursing note reviewed. Constitutional: General: He is awake. He is not in acute distress. Appearance: Normal appearance. He is well-developed and well-groomed. He is not ill-appearing, toxic-appearing or diaphoretic. HENT: Head: Normocephalic. Right Ear: External ear normal. Left Ear: External ear normal. Nose: Nose normal. Eyes: General: Vision grossly intact. Conjunctiva/sclera: Conjunctivae normal. Pupils: Pupils are equal, round, and reactive to light. Neck: Vascular: No JVD. Trachea: Trachea normal. Cardiovascular: Pulses: Normal pulses. Pulmonary: Effort: Pulmonary effort is normal. No accessory muscle usage, prolonged expiration or respiratory distress. Musculoskeletal: Cervical back: Neck supple. Feet: Feet: Comments: Left great toe with dime sized open area Skin: General: Skin is warm and dry. Capillary Refill: Capillary refill takes less than 2 seconds. Neurological: General: No focal deficit present. Mental Status: He is alert and oriented to person, place, and time. Mental status is at baseline. Psychiatric: Attention and Perception: Attention and perception normal. Mood and Affect: Mood and affect normal. Speech: Speech normal. Behavior: Behavior normal. Behavior is cooperative. Thought Content: Thought content normal. Cognition and Memory: Cognition and memory normal. Judgment: Judgment normal. ASSESSMENT/PLAN: 1. Medicare annual wellness visit, subsequent - ICD9: V70.0, ICD10: Z00.00 (primary diagnosis) - Counseled on healthy diet and regular exercise - Fall avoidance information provided - Personalized prevention plan provided - BACH SCREENING TEST 2. Ulcer of toe of left foot, unspecified ulcer stage (HCC) - ICD9: 707.15, ICD10: L97.529 - AMOXICILLIN 875 MG-POTASSIUM CLAVULANATE 125 MG TABLET 3. Shortness of breath - ICD9: 786.05, ICD10: R06.[address] chest done. Reviewed PFTs - CONSULT TO PULMONARY MEDICINE 4. MCI (mild cognitive impairment) - ICD9: 331.83, ICD10: G31.84 - BACH SCREENING TEST 5. Primary hypertension - ICD9: 401.9, ICD10: I10 - Controlled - Continue current medications - Recommend home blood pressure monitoring, to bring results to next visit - Encouraged sodium restriction, DASH or Mediterranean diet - Recommend regular aerobic exercise Portions of this note have been entered by ancillary staff. I have reviewed and when necessary edited, so that they are an adequate record of my encounter with this patient Please note that parts of this document were created using voice recognition software and therefore may contain grammatical errors. Patient verbalizes understanding of instructions from today's visit and in agreement with treatment plan. Questions answered. Agrees to call the office if questions, concerns of issues with acute symptoms not improving or if they worsen. See diagnoses and orders for additional plan(s). Allergies and medications were reviewed, list was updated, and refills given if needed. Past medical, surgical, social, and family history reviewed and updated as appropriate. Encouraged proper diet & exercise as well as compliance with taking medications. Age-appropriate health preventative measures were discussed. Return in about 3 months (around 11/15/2024) for Follow up on chronic conditions and medications.. Zeny Lam APRN-KAYLA documented in this encounter [facility] 08-15-2024 Instructions Zeny Lam APRN.CNP - 08/15/2024 1:47 PM EDT Screening schedule The following prevention plan is recommended: Covid-19 Vaccine( season) due on 07/12/2024 WHAT YOU CAN DO TO PREVENT FALLS Many falls can be prevented. By making some changes, you can lower your chances of falling. Four things YOU can do to prevent falls for you* and your caregiver 1. Begin a regular exercise program Exercise is one of the most important ways to lower your chances of falling. It makes you stronger and helps you feel better. Exercises that improve balance and coordination (like Sarmad Chi) are the most helpful. Lack of exercise leads to weakness and increases your chances of falling. Ask your doctor or health care provider about the best type of exercise program for you. 2. Have your health care provider review your medicines Have your doctor or pharmacist review all the medicines you take, even cgif-grg-svonhgy medicines. As you get older, the way medicines work in your body can change. Some medicines, or combinations of medicines, can make you sleepy or dizzy and can cause you to fall. 3. Have your vision checked Have your eyes checked by an eye doctor at least once a year. You may be wearing the wrong glasses or have a condition like glaucoma or cataracts that limits your vision. Poor vision can increase your chances of falling. 4. Make your home safer About half of all falls happen at home. To make your home safer: Remove things you can trip over (like papers, books, clothes, and shoes) from stairs and places where you walk. Remove small throw rugs or use double-sided tape to keep the rugs from slipping. Keep items you use often in cabinets you can reach easily without using a step stool. Have grab bars put in next to your toilet and in the tub or shower. Use non-slip mats in the bathtub and on shower floors. Improve the lighting in your home. As you get older, you need brighter lights to see well. Hang light-weight curtains or shades to reduce glare. Have handrails and lights put in on all staircases. Wear shoes both inside and outside the house. Avoid going barefoot or wearing slippers. For more information, contact: Centers for Disease Control and Prevention www.cdc.gov/injury * This information may not apply if you have certain medical conditions. documented in this encounter [facility] 08-11-2024 Note Date of Procedure 08/11/2024. Human Development Professor Information Company Manager: Patience Gonzales Start time: 9:48 AM. Stop time: 9:52 AM. OCT Macula Interpretation Right Eye Findings include Epiretinal membrane, RPE Irregularity, Vitelliform lesion; Negative for Intraretinal fluid. Left Eye Abnormal foveal contour. Findings include Negative for Intraretinal fluid, Subretinal fluid. Interval Change Right Eye Worse. Left Eye Stable. [facility] 08-11-2024 History of Presen t illness Narrative This is a 78 year old male diagnosed upon referral with mac hole left eye s/p PPV ~9 years ago. Visual acuity with correction is 20/20 RE and 20/30 LE. IOP is 11/11. Anterior segment exam is significant for centered PCL. Dilated fundus examination demonstrates closed hole. OCT with reconstution of EZ with abnormal foveal contour LE. Right eye demonstrates recurrence of small RPE disruption and trace SRF, that we saw in 2020 RE, around the time of lumbar related back pain. Given excellent vision, will observe RE for now. Call with any changes I have confirmed and edited as necessary the relevant ophthalmic history, ROS, and the neuro exam findings as obtained by others. I have seen and examined Alex Brooks. I have discussed the case and the management of this patient's care with the Resident/Fellow, if applicable. I also have reviewed and agree with the assessment and plan as stated above and agree with all of its relevant components. documented in this encounter [facility] 08-10-2024 Telephone encounter Note PATIENT NOTIFIED OF SAME. [facility] 08-10-2024 Miscellaneous Notes PATIENT NOTIFIED OF SAME. Noted and agree, continue current dose and repeat INR as planned. Last INR: INR Home CoaguChek 2.9 08/10/2024 Current dose of coumadin is: 7.5 mg alternate with 5 mg every other day, 10 mg every other Thursday (the Thursday before he tests). Last date of dose change: 05/18/24. Previous INR (date and result): 07/27/24, 2.5 Additional Clinical Information or narrative: no etoh, no unusual bleeding or bruising, no recent AB's, no diet changes, no missed doses. Pt scheduled to recheck INR on 08/24/24 at 11 am. documented in this encounter [facility] 08-10-2024 Telephone encounter Note Noted and agree, continue current dose and repeat INR as planned. [facility] 08-10-2024 Telephone encounter Note Last INR: INR Home Meet 2.9 08/10/2024 Current dose of coumadin is: 7.5 mg alternate with 5 mg every other day, 10 mg every other Thursday (the Thursday before he tests). Last date of dose change: 05/18/24. Previous INR (date and result): 07/27/24, 2.5 Additional Clinical Information or narrative: no etoh, no unusual bleeding or bruising, no recent AB's, no diet changes, no missed doses. Pt scheduled to recheck INR on 08/24/24 at 11 am. [facility] 08-10-2024 Progress note Formatting of t his note might be different from the original. Plan to go over result at up coming follow up appointment. [facility] 08-10-2024 Miscellaneous Notes Plan to go over result at up coming follow up appointment. documented in this encounter [facility] 08-10-2024 Note HNO ID: [id number] Author: WALT YANG R Ac Service: ? Author Type: Diplomat of Acupuncture Type: Progress Notes Filed: 08/10/2024 09:28 Note Text: Alex borjas 78 year old male presents to the acupuncture clinic on 08/10/24 for a follow up visit. Patient identity confirmed by name and : Yes This is the 2 visit for the patient this year It has been 2 week(s) since the last acupuncture treatment. 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 Circulation in lower extremities has been significantly reduced by manifested purplish discoloration. Patient was able to feel light touch using an alcohol pad to swab his leg skin. Dryness and muscle atrophy in lower legs especially. Patient was diagnosed with arthritis 10 years ago. He was on percocet for 13 weeks which was temporarily beneficial for a while and worn off quickly. Patient has a history of fall in the kitchen and fractured his L1 vertebra spine in early 2023. He has been experiencing sciatica on both legs with persistent pain in lumbosacral region. In 1994, patient has been suffering from neuropathy with dropped foot. He really enjoyed drinking wine for many years. He was advised to cut back on reducing alcohol intake. He was living in [facility] since he was born and moved to [place] for job-related which he regret as business environment and living was not the same. About 10 year ago, he moved to [place] and that was when he started experiencing exacerbation of all the condition. 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 Patient would benefit from acupuncture therapy to address listed deficiencies and return to PLOF. Pt was educated on symptoms, prognosis, plan of care and activity modifications. Pt verbalized understanding and agreed to begin care. TCM Pattern: Chronic low back pain without sciatica, unspecified back pain laterality (primary encounter diagnosis) due to qi stagnation and blood stasis TCM Treatment Principle: regulate qi and invigorate blood to relieve pain PLAN OF CARE Counseled patient on risks of acupuncture treatment including pain, infection, bleeding, and no relief of pain. The patient was positioned comfortably. There was no evidence of infection at the site of needle insertions. Acupuncture Treatment: Treatment/Needle Set 1, Prone: Points: perispinal L4/5, 5/S1, UB24, UB25, Martín Bennett, UB31, GB30, Artemio Miguel 15 minutes face to face with patient for set 1 Treatment/Needle Set 2, Prone: Points: UB40, GB34, GB39, KD10, KD3, KD7, UB60 10 minutes face to face with patient for set 2 Carlisle were retained for 30 minutes # of needles inserted: 30 # of needles withdrawn: 30 Adjunct techniques used: TDP Infrared Heat Lamp- Applied to lower back Patient tolerated the procedure well. UNIVERSAL PROTOCOL / SAFETY CHECKLIST Procedure to be Performed: Acupuncture Sign In: A Moment of CARE was completed. Appropriate PPE (Personal Protective Equipment) worn by all providers involved with the procedure. Special equipment not required. Patient/Surrogate Stated/Verified: Patient name, Date of , Relevant allergies, and The intended procedure Time Out: Relevant labs, photos, and/or imaging studies have been reviewed. Intended patient and procedure match the source document(s) (e.g. consent, HANDP, associated studies [imaging, pathology]) are not applicable. Consent obtained and matches the intended procedure. Correct side/site is not applicable. Medications required for this procedure are verified. Fire risk assessed and is not applicable. Implants: are not applicable. Sign Out: Specimens are all correctly labeled and sent. All instruments, equipment, possible retained foreign bodies are accounted for. The post-procedure plan of care has been communicated to the patient or surrogate. Provider Name: Jose J Chase 25 Total minutes face to face time spent with patient Acupuncture and Micronesian herbal therapy are not a substitute for conventional medical diagnosis and treatment. Patient agrees that e (more content not included)... [facility] 08-10-2024 History of Presen t illness Narrative Alex borjas 78 year old male presents to the acupuncture clinic on 08/10/24 for a follow up visit. Patient identity confirmed by name and : Yes This is the 2 visit for the patient this year It has been 2 week(s) since the last acupuncture treatment. 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 Circulation in lower extremities has been significantly reduced by manifested purplish discoloration. Patient was able to feel light touch using an alcohol pad to swab his leg skin. Dryness and muscle atrophy in lower legs especially. Patient was diagnosed with arthritis 10 years ago. He was on percocet for 13 weeks which was temporarily beneficial for a while and worn off quickly. Patient has a history of fall in the kitchen and fractured his L1 vertebra spine in early 2023. He has been experiencing sciatica on both legs with persistent pain in lumbosacral region. In 1994, patient has been suffering from neuropathy with dropped foot. He really enjoyed drinking wine for many years. He was advised to cut back on reducing alcohol intake. He was living in [facility] since he was born and moved to [place] for job-related which he regret as business environment and living was not the same. About 10 year ago, he moved to [place] and that was when he started experiencing exacerbation of all the condition. 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 Patient would benefit from acupuncture therapy to address listed deficiencies and return to PLOF. Pt was educated on symptoms, prognosis, plan of care and activity modifications. Pt verbalized understanding and agreed to begin care. TCM Pattern: Chronic low back pain without sciatica, unspecified back pain laterality (primary encounter diagnosis) due to qi stagnation and blood stasis TCM Treatment Principle: regulate qi and invigorate blood to relieve pain PLAN OF CARE Counseled patient on risks of acupuncture treatment including pain, infection, bleeding, and no relief of pain. The patient was positioned comfortably. There was no evidence of infection at the site of needle insertions. Acupuncture Treatment: Treatment/Needle Set 1, Prone: Points: perispinal L4/5, 5/S1, UB24, UB25, Martín Bennett, UB31, GB30, Artemio Miguel 15 minutes face to face with patient for set 1 Treatment/Needle Set 2, Prone: Points: UB40, GB34, GB39, KD10, KD3, KD7, UB60 10 minutes face to face with patient for set 2 Carlisle were retained for 30 minutes # of needles inserted: 30 # of needles withdrawn: 30 Adjunct techniques used: TDP Infrared Heat Lamp- Applied to lower back Patient tolerated the procedure well. UNIVERSAL PROTOCOL / SAFETY CHECKLIST Procedure to be Performed: Acupuncture Sign In: A Moment of CARE was completed. Appropriate PPE (Personal Protective Equipment) worn by all providers involved with the procedure. Special equipment not required. Patient/Surrogate Stated/Verified: Patient name, Date of , Relevant allergies, and The intended procedure Time Out: Relevant labs, photos, and/or imaging studies have been reviewed. Intended patient and procedure match the source document(s) (e.g. consent, H&P, associated studies [imaging, pathology]) are not applicable. Consent obtained and matches the intended procedure. Correct side/site is not applicable. Medications required for this procedure are verified. Fire risk assessed and is not applicable. Implants: are not applicable. Sign Out: Specimens are all correctly labeled and sent. All instruments, equipment, possible retained foreign bodies are accounted for. The post-procedure plan of care has been communicated to the patient or surrogate. Provider Name: Jose J Chase 25 Total minutes face to face time spent with patient Acupuncture and Micronesian herbal therapy are not a substitute for conventional medical diagnosis and treatment. Patient agrees that either: 1. A diagnostic exam has been performed by a physician or chiropractor within the last six months regarding the condition for which they are seeking acupuncture treatment. or 2. If no diagnostic exam by a physician or chiropractor has been done within the last six months regarding the condition for which patient is seeking treatment, the [employer], per [place] Law, recommends that this diagnostic exam be performed. documented in this encounter [facility] 08-08-2024 History of Presen t illness Narrative Images from the original note were not included. [facility] Cardiology ([address]) [address] [facility] [id number] OUTPATIENT VISIT DATE 08/08/2024 PRIMARY CARE PHYSICIAN: Zeny Lam [address] [place] [address] HISTORY OF PRESENT ILLNESS: Mr. Brooks is a 78 year old gentleman with a history of hypertension, dyslipidemia, peripheral arterial disease with his left carotid endarterectomy and recurrent DVT/PEs who presents to follow-up. Patient has been doing well from a functional standpoint. He has some shortness of breath on exertion which is unchanged from prior. He has not had symptoms of chest pain, chest pressure. He denies palpitations, lightheadedness, dizziness, or syncope. PAST CARDIAC HISTORY: Mr. Brooks is a 75 year old male with a past cardiovascular history significant for 1) carotid artery stenosis status post left CEA in 06/2019, 20 to 39% stenosis in the right ICA 2) peripheral artery disease -mild disease at rest 01/2020 3) presumed coronary artery disease-no recent coronary angiogram, however, fixed defect noted on SPECT 06/2019 4) known left bundle branch block 5) recurrent pulmonary embolism (2011, 2014) on long-term anticoagulation with warfarin PAST MEDICAL HISTORY Diagnosis Date Asthma (HCC) as a teenager Benign prostatic hyperplasia with nocturia Bilateral carotid artery stenosis 02/14/2019 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 Carotid stenosis, left 02/21/2019 s/p CEA Closed nondisplaced fracture of distal phalanx of right great toe 01/16/2021 Colonic polyp 11/29/2018 DDD (degenerative disc disease), lumbar 03/08/2014 Elevated prostate specific antigen (PSA) 09/15/2016 Esophageal reflux Fall at home 01/05/2018 Right Rib Fracture Hypertension Hypertrophy of prostate with urinary obstruction and other lower urinary tract symptoms (LUTS) 09/04/2008 With mild night-time symptoms, exam ok as of 09/2008 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 Related to sugar? -- see fasting glucose 2008; Impaired fasting glucose 10/11/2008 Under 110; See labs 10/12 INSOMNIA NOS 09/04/2008 Doing well with as-needed benzo at night Left bundle branch block 05/28/2010 Lumbago 02/23/2009 Lumbosacral spondylosis without myelopathy 08/07/2011 Lung disease [place] Fever Macular hole left eye Macular hole of left eye 06/19/2020 Mixed hyperlipidemia 10/05/2008 Neuropathy Nuclear sclerosis of right eye PE (pulmonary embolism) 09/04/2011 Peripheral vascular disease Perirectal abscess 12/12/2008 Postconcussion syndrome 11/11/2011 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) 05/08/2014 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 REMV CATARACT EXTRACAP,INSERT LENS Left TRANSCATH RETRIEVAL,PERCUT 09/20/2012 IVC filter retrieval TRIESENCE INTRAVITREAL INJECTION OS (LEFT EYE) 10/25/2013 VENA CAVA FILTER 09/26/2011 later removed SOCIAL HISTORY Social History Tobacco Use Smoking status: Former Current packs/day: 0.00 Average packs/day: 1 pack/day for 20.0 years (20.0 ttl pk-yrs) Types: Cigarettes Start date: 04/06/1960 Quit date: 04/06/1980 Years since quittin.3 Smokeless tobacco: Never Vaping Use Vaping status: Never Used Substance Use Topics Alcohol use: Not Currently Comment: stopped 07/19/2022 Drug use: Yes Frequency: 7.0 times per week Types: Marijuana FAMILY HISTORY Problem Relation Age of Onset Hypertension Mother (longevity on mom's side) Cataract Mother Coronary Artery Disease Father father who of sudden cardiac arrest age 74 Heart Father heart stopped Blood Disease Brother pulmonary embolism history No Known Problems Maternal Grandmother No Known Problems Maternal Grandfather No Known Problems Paternal Grandmother Heart Paternal Grandfather Colon Cancer Other no close relatives known Prostate Cancer Other none Emphysema Other none ALLERGIES: ALLERGIES Allergen Reactions Cyclobenzaprine Other: See Comments Double vision Gabapentin Intolerance Keflex [Cephalexin] Rash MEDICATIONS: iv contrast (will be provided with radiology test) CT Chest W -Inject, intravenously, once for 1 dose.No IV access, insert saline lock prior to the beginning of sedation, infusion, injection of imaging exam. Discontinue saline lock post exam. If Pt. has a central line or IVAD, may access for administration according to line specific nursing protocol. Once exam is complete flush line and de-access according to line specific nursing protocol in the CT contrast administration guidelines link. cloNIDine HCl (CATAPRES) 0.1 mg tablet Take 1-2 tablets by mouth three times a day as needed (for SBP greater than 150). olmesartan (BENICAR) 40 mg tablet Take 1 tablet by mouth once daily. LORazepam (ATIVAN) 2 mg tab Take 1 tablet by mouth at bedtime as needed (insomnia) for up to 180 days. famotidine (PEPCID) 40 mg tablet Take 1 tablet by mouth once daily as needed. rosuvastatin (CRESTOR) 40 mg tablet Take 1 tablet by mouth once daily. warfarin (COUMADIN) 5 mg tablet As directed, currently taking as alternating every other day with taking 7.5 mg and 5 mg, plan for max dose of 10 mg per day at this time. pantoprazole DR (PROTONIX) 40 mg tablet take 1 tablet by mouth once daily ON AN EMPTY STOMACH 30 MINUTES PRIOR TO A MEAL potassium chloride (KLOR-CON 10) 10 mEq tablet Take 1 tablet by mouth two times a day. hydrocortisone 2.5 % cream Seldom vitamin B complex (B COMPLEX 1 ORAL) Take 1 tablet by mouth once daily. coenzyme Q10 (COENZYME Q-10) 100 mg cap capsule Take 400 mg by mouth once daily. Cyanocobalamin 2,500 mcg subl Dissolve under the tongue twice daily. calcium, elemental, tab Take 600 mg by mouth twice daily. multivitamin (SOFYA MULTIVITAMIN) tablet Take 1 tablet by mouth once daily. oxyCODONE-acetaminophen (PERCOCET) 7.5-325 mg tablet Take 1 tablet by mouth every 6 hours as needed for pain for up to 7 days. REVIEW OF SYSTEMS: Review of Systems Constitutional: Negative for chills, fever, malaise/fatigue and weight loss. HENT: Negative for hearing loss and sore throat. Eyes: Negative for blurred vision and double vision. Respiratory: Negative. Cardiovascular: Negative. Gastrointestinal: Negative. Genitourinary: Negative for dysuria, frequency, hematuria and urgency. Musculoskeletal: Negative. Skin: Negative. Neurological: Negative for dizziness, seizures, loss of consciousness, weakness and headaches. Endo/Heme/Allergies: Negative for environmental allergies. Does not bruise/bleed easily. Psychiatric/Behavioral: Negative for depression. PHYSICAL EXAMINATION: BP 132/76 Pulse 82 Resp 16 Ht 6' 1 (1.85m) Wt 190 lb (86.2kg) SpO2 96% BMI 25.07 kg/(m^2). General: Pleasant gentleman sitting comfortable no apparent distress he is alert and oriented x 3 HEENT: Carotid upstrokes are brisk bilaterally without bruits no JVD appreciated. Pulmonary: Lungs are clear no rales, wheezes, rhonchi Cardiovascular: Normal S1, S2 with regular rate and rhythm. No murmurs, rubs, or gallops Extremities: Warm, well-perfused, no lower extremity edema. 2+ distal pulses CARDIOVASCULAR MEDICINE TESTING: Regadenoson Myoview Stress 07/18/2024: CONCLUSIONS: 1. SPECT Perfusion Study: Normal. 2. There is no scintigraphic evidence for inducible ischemia. 3. No evidence of scarred myocardium. 4. Left ventricle is normal in size. The left ventricle systolic function is normal. 5. Right ventricle is normal in size. The right ventricle systolic function is normal. 6. This is a low risk scan. Gated Stress FBP LVEF % 74 Regadenoson Myoview Stress 06/06/2019: CONCLUSIONS: 1. SPECT Perfusion Study: Abnormal. 2. There is no scintigraphic evidence for inducible ischemia. 3. There is a small (<10%) fixed perfusion defect in the RCA territory. 4. Functional capacity N/A (pharmacological). 5. Left ventricle is normal in size. The left ventricle systolic function is normal. 6. Right ventricle is normal in size. The right ventricle systolic function is normal. 7. This is a low risk scan. 8. Incidental Findings from limited non-diagnostic CTAC: - Coronary calcifications visualized. Gated Stress FBP Gated Rest FBP LVEF % 71 66 Echocardiogram 04/16/2021: - The left ventricle is normal in size. Left ventricular systolic function is normal. EF = 55 5% (visual est.) Grade I left ventricular diastolic dysfunction. - The right ventricle is normal in size. Right ventricular systolic function is normal. - No significant valvular disease - Exam was compared with the prior CC echocardiographic exam performed on 09/18/2011. Carotid Ultrasound 05/24/2024: IMPRESSION Please note: the new carotid interpretation criteria are used as recommended by [facility]. When compared with the prior study, of 04/08/2023 progression of disease is noted on the right side and no significant change is noted on the left side. RIGHT SIDE Common carotid artery: Plaque visualized without evidence of hemodynamically significant stenosis. Internal carotid artery: 50-69% stenosis consistent with moderate carotid artery disease. Vertebral artery: Patent and antegrade flow noted. Subclavian artery: Plaque visualized without evidence of hemodynamically significant stenosis. LEFT SIDE Common carotid artery: Plaque visualized without evidence of hemodynamically significant stenosis. Endarterectomy patch at distal measuring 1.2 cm. Internal carotid artery: <50% stenosis consistent with mild carotid artery disease. Endarterectomy patch from origin to proximal . Vertebral artery: Patent and antegrade flow noted. Abnormal signal suggests pre-steal. Subclavian artery: Patent. Carotid Ultrasound 04/08/2023: IMPRESSION Compared to prior study of 12/11/2022, No significant change. RIGHT SIDE Common carotid artery: Plaque visualized without evidence of hemodynamically significant stenosis. Internal carotid artery: 20-39% stenosis. Vertebral artery: Patent and antegrade flow noted. Subclavian artery: Plaque visualized without evidence of hemodynamically significant stenosis. LEFT SIDE Common carotid artery: Plaque visualized without evidence of hemodynamically significant stenosis. Endarterectomy patch at distal measuring 1.1 cm. Internal carotid artery: 20-39% stenosis. Endarterectomy patch from origin to proximal . Vertebral artery: Patent and antegrade flow noted. Abnormal signal suggests pre-steal. Subclavian artery: Plaque visualized without evidence of hemodynamically significant stenosis. I have personally reviewed the Electrocardiogram and Stress Test: Nuclear (Non-PET). IMPRESSION: Mr. Brooks is a 78 year old gentleman with risk factors for coronary disease which include hypertension, dyslipidemia, known carotid artery disease, prior significant smoking history who presents to the office for follow-up. PLAN AND RECOMMENDATIONS: 1. PAD (peripheral artery disease) - ICD9: 443.9, ICD10: I73.9 (primary diagnosis) Patient is following with Dr. Loaiza from vascular surgery. Recent carotid ultrasound results were reviewed with the patient during the office visit. 2. Bilateral carotid artery stenosis - ICD9: 433.10, 433.30, ICD10: I65.23 3. Primary hypertension - ICD9: 401.9, ICD10: I10 Adequate controlled on current regimen 4. Mixed hyperlipidemia - ICD9: 272.2, ICD10: E78.2 Maintained on rosuvastatin 40 mg daily. Fasting blood work from February 2024 was reviewed. LDL cholesterol 43 mg/dL 5. History of left-sided carotid endarterectomy - ICD9: V45.89, ICD10: Z98.890 6. 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) - ICD9: 415.19, ICD10: I26.99 Maintained on Coumadin Sunny Mercedes MD documented in this encounter [facility] 08-06-2024 Telephone encounter Note Patient calling regarding bleeding after toe nail trim on 07/28/24 . Conferenced to [facility] nuclear control room operator, Анна, to speak with provider environmental health safety manager for Podiatry. [facility] 08-06-2024 Miscellaneous Notes Patient calling regarding bleeding after toe nail trim on 07/28/24 . Conferenced to [facility] nuclear control room operator, Анна, to speak with provider environmental health safety manager for Podiatry. documented in this encounter [facility] 08-04-2024 Procedure note Associated Ord er(s): NITRIC OXIDE, EXHALED RESPIRATORY THERAPY ORAL EXHALED NITRIC OXIDE SERVICE DATE: 08/04/2024 SERVICE TIME: 12:34 PM Oral Exhaled Nitric Oxide measurement: 34.0 (ppb) Normal: Adult <25 ppb, pediatric (<12 years) <20 ppb High Normal / Increased: Adult 25-50 ppb, pediatric (<12 years) 20-35 ppb Moderately raised exhaled Nitric Oxide may indicate underlying inflammation, but note that: Cold and influenza can raise exhaled Nitric Oxide and some patients have higher baseline exhaled Nitric Oxide levels than others. High: Adult >50 ppb, pediatric (<12 years) >35 ppb Indicative of ongoing eosinophilic inflammation. Symptomatic patient likely to respond to steroids. Possible causes (if already on steroids): Poor compliance, recent allergen exposure, steroid dose inadequate, and steroid resistance. Note that not all patients with high exhaled nitric oxide levels display symptoms. Oral Exhaled Nitric Oxide measurement (Previous Encounters) Test Date Oral Exhaled Nitric Oxide (ppb) 08/04/2024 34.0 NAME: Mariana Barbosa RRT PATIENT NAME: Alex Brooks DATE: August 04, 2024 TIME: 12:34 PM [facility] 08-04-2024 Procedure note Associated Ord er(s): NITRIC OXIDE, EXHALED RESPIRATORY THERAPY ORAL EXHALED NITRIC OXIDE SERVICE DATE: 08/04/2024 SERVICE TIME: 12:34 PM Oral Exhaled Nitric Oxide measurement: 34.0 (ppb) Normal: Adult <25 ppb, pediatric (<12 years) <20 ppb High Normal / Increased: Adult 25-50 ppb, pediatric (<12 years) 20-35 ppb Moderately raised exhaled Nitric Oxide may indicate underlying inflammation, but note that: Cold and influenza can raise exhaled Nitric Oxide and some patients have higher baseline exhaled Nitric Oxide levels than others. High: Adult >50 ppb, pediatric (<12 years) >35 ppb Indicative of ongoing eosinophilic inflammation. Symptomatic patient likely to respond to steroids. Possible causes (if already on steroids): Poor compliance, recent allergen exposure, steroid dose inadequate, and steroid resistance. Note that not all patients with high exhaled nitric oxide levels display symptoms. Oral Exhaled Nitric Oxide measurement (Previous Encounters) Test Date Oral Exhaled Nitric Oxide (ppb) 08/04/2024 34.0 NAME: Mariana Barbosa RRT PATIENT NAME: Alex Brooks DATE: August 04, 2024 TIME: 12:34 PM documented in this encounter [facility] 07-27-2024 Telephone encounter Note PATIENT NOTIFIED OF SAME. [facility] 07-27-2024 Miscellaneous Notes PATIENT NOTIFIED OF SAME. Noted and okay to continue current dose and check INR as he plans in 2 weeks. Last INR: INR Home CoaguChek 2.5 07/27/2024 Current dose of coumadin is: 7.5 mg alternate with 5 mg every other day, 10 mg every other Thursday. Last date of dose change: 05-18-24. Previous INR (date and result): 07/13/24, 2.3 Additional Clinical Information or narrative: yes: No diet changes, No wine, no unusual bleeding or bruising, no change in medication, no recent AB. Patient scheduled appt with lab to recheck INR in 2 weeks on 08/10/24 documented in this encounter [facility] 07-27-2024 Telephone encounter Note Noted and okay to continue current dose and check INR as he plans in 2 weeks. [facility] 07-27-2024 Telephone encounter Note Last INR: INR Home CoaguChek 2.5 07/27/2024 Current dose of coumadin is: 7.5 mg alternate with 5 mg every other day, 10 mg every other Thursday. Last date of dose change: 05-18-24. Previous INR (date and result): 07/13/24, 2.3 Additional Clinical Information or narrative: yes: No diet changes, No wine, no unusual bleeding or bruising, no change in medication, no recent AB. Patient scheduled appt with lab to recheck INR in 2 weeks on 08/10/24 [facility] 07-26-2024 Note HNO ID: [id number] Author: WALT YANG R Ac Service: ? Author Type: Diplomat of Acupuncture Type: Progress Notes Filed: 07/26/2024 16:30 Note Text: Alex Brooks a 78 year old male presents to the acupuncture clinic on 07/26/24 for a follow up visit. 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 Patient returns with chronic low back pain, wanting to minimize taking opiate medication. He addressed neuropathy, paresthesia and drop foot condition in the lower extremities as well. His low back pain is constantly bothering the patient, experiencing daily pain in lumbosacral region. Patient was diagnosed with arthritis 10 years ago. He was on percocet for 13 weeks which was temporarily beneficial for a while and worn off quickly. Patient has a history of fall in the kitchen and fractured his L1 vertebra spine in early 2023. He has been experiencing sciatica on both legs with persistent pain in lumbosacral region. In 1994, patient has been suffering from neuropathy with dropped foot. He really enjoyed drinking wine for many years. He was advised to cut back on reducing alcohol intake. He was living in [facility] since he was born and moved to [place] for job-related which he regret as business environment and living was not the same. About 10 year ago, he moved to [place] and that was when he started experiencing exacerbation of all the condition. 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 Patient would benefit from acupuncture therapy to address listed deficiencies and return to PLOF. Pt was educated on symptoms, prognosis, plan of care and activity modifications. Pt verbalized understanding and agreed to begin care. TCM Pattern: Chronic low back pain without sciatica, unspecified back pain laterality (primary encounter diagnosis) due to qi stagnation and blood stasis TCM Treatment Principle: regulate qi and invigorate blood to relieve pain PLAN OF CARE Counseled patient on risks of acupuncture treatment including pain, infection, bleeding, and no relief of pain. The patient was positioned comfortably. There was no evidence of infection at the site of needle insertions. Acupuncture Treatment: Treatment/Needle Set 1, Prone: Points: perispinal L4/5, 5/S1, UB24, UB25, Martín Bennett, UB31, GB30, Artemio Miguel 15 minutes face to face with patient for set 1 Treatment/Needle Set 2, Prone: Points: UB40, GB34, GB39, KD10, KD3, KD7, UB60 10 minutes face to face with patient for set 2 Carlisle were retained for 30 minutes # of needles inserted: 30 # of needles withdrawn: 30 Adjunct techniques used: TDP Infrared Heat Lamp- Applied to lower back Patient tolerated the procedure well. UNIVERSAL PROTOCOL / SAFETY CHECKLIST Procedure to be Performed: Acupuncture Sign In: A Moment of CARE was completed. Appropriate PPE (Personal Protective Equipment) worn by all providers involved with the procedure. Special equipment not required. Patient/Surrogate Stated/Verified: Patient name, Date of , Relevant allergies, and The intended procedure Time Out: Relevant labs, photos, and/or imaging studies have been reviewed. Intended patient and procedure match the source document(s) (e.g. consent, HANDP, associated studies [imaging, pathology]) are not applicable. Consent obtained and matches the intended procedure. Correct side/site is not applicable. Medications required for this procedure are verified. Fire risk assessed and is not applicable. Implants: are not applicable. Sign Out: Specimens are all correctly labeled and sent. All instruments, equipment, possible retained foreign bodies are accounted for. The post-procedure plan of care has been communicated to the patient or surrogate. Provider Name: Peterdonnaurmila Jose J Yang 25 Total minutes face to face time spent with patient Acupuncture and Micronesian herbal therapy are not a substitute for conventional medical diagnosis and treatment. Patient agrees that either: 1. A diagnostic exam has been performed by a physician or chiroprac (more content not included)... [facility] 07-26-2024 History of Presen t illness Narrative Alex Brooks a 78 year old male presents to the acupuncture clinic on 07/26/24 for a follow up visit. 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 Patient returns with chronic low back pain, wanting to minimize taking opiate medication. He addressed neuropathy, paresthesia and drop foot condition in the lower extremities as well. His low back pain is constantly bothering the patient, experiencing daily pain in lumbosacral region. Patient was diagnosed with arthritis 10 years ago. He was on percocet for 13 weeks which was temporarily beneficial for a while and worn off quickly. Patient has a history of fall in the kitchen and fractured his L1 vertebra spine in early 2023. He has been experiencing sciatica on both legs with persistent pain in lumbosacral region. In 1994, patient has been suffering from neuropathy with dropped foot. He really enjoyed drinking wine for many years. He was advised to cut back on reducing alcohol intake. He was living in [facility] since he was born and moved to [place] for job-related which he regret as business environment and living was not the same. About 10 year ago, he moved to [place] and that was when he started experiencing exacerbation of all the condition. 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 Patient would benefit from acupuncture therapy to address listed deficiencies and return to PLOF. Pt was educated on symptoms, prognosis, plan of care and activity modifications. Pt verbalized understanding and agreed to begin care. TCM Pattern: Chronic low back pain without sciatica, unspecified back pain laterality (primary encounter diagnosis) due to qi stagnation and blood stasis TCM Treatment Principle: regulate qi and invigorate blood to relieve pain PLAN OF CARE Counseled patient on risks of acupuncture treatment including pain, infection, bleeding, and no relief of pain. The patient was positioned comfortably. There was no evidence of infection at the site of needle insertions. Acupuncture Treatment: Treatment/Needle Set 1, Prone: Points: perispinal L4/5, 5/S1, UB24, UB25, Martín Bennett, UB31, GB30, Artemio Miguel 15 minutes face to face with patient for set 1 Treatment/Needle Set 2, Prone: Points: UB40, GB34, GB39, KD10, KD3, KD7, UB60 10 minutes face to face with patient for set 2 Carlisle were retained for 30 minutes # of needles inserted: 30 # of needles withdrawn: 30 Adjunct techniques used: TDP Infrared Heat Lamp- Applied to lower back Patient tolerated the procedure well. UNIVERSAL PROTOCOL / SAFETY CHECKLIST Procedure to be Performed: Acupuncture Sign In: A Moment of CARE was completed. Appropriate PPE (Personal Protective Equipment) worn by all providers involved with the procedure. Special equipment not required. Patient/Surrogate Stated/Verified: Patient name, Date of , Relevant allergies, and The intended procedure Time Out: Relevant labs, photos, and/or imaging studies have been reviewed. Intended patient and procedure match the source document(s) (e.g. consent, H&P, associated studies [imaging, pathology]) are not applicable. Consent obtained and matches the intended procedure. Correct side/site is not applicable. Medications required for this procedure are verified. Fire risk assessed and is not applicable. Implants: are not applicable. Sign Out: Specimens are all correctly labeled and sent. All instruments, equipment, possible retained foreign bodies are accounted for. The post-procedure plan of care has been communicated to the patient or surrogate. Provider Name: Jose J Chase 25 Total minutes face to face time spent with patient Acupuncture and Micronesian herbal therapy are not a substitute for conventional medical diagnosis and treatment. Patient agrees that either: 1. A diagnostic exam has been performed by a physician or chiropractor within the last six months regarding the condition for which they are seeking acupuncture treatment. or 2. If no diagnostic exam by a physician or chiropractor has been done within the last six months regarding the condition for which patient is seeking treatment, the [employer], per [place] Law, recommends that this diagnostic exam be performed. documented in this encounter [facility] 07-25-2024 History of Presen t illness Narrative SUBJECTIVE Alex Brooks is a 78 year old male here today for a check up on his medical problems. Chief Complaint Patient presents with: Recheck: stress test questioning what next step is in figuring out shortness of breath did look up nefedipine and side effects noted is SOB and cramping in lower legs HPI Alex Brooks is a 78 year old male. Presents today for follow up for shortness of breath. He had a stress test which was neg. He tried the inhlar without improvement. He also had leg cramping which he stopped his nifedipine and now feels has resolved. Denies swelling in lower ext or associated chest pain with his shortness of breath. His bp still reported as labile , same as our reading today at home per patient. He has cut down on his wine intake as he feels like that increases his BP readings. He reports chronic back pain which he is going to acuputuncre later this week . No other new complaints. His medications were reviewed today and his list is now up to date. Medications Current Outpatient Medications Medication Sig olmesartan (BENICAR) 40 mg tablet Take 1 tablet by mouth once daily. LORazepam (ATIVAN) 2 mg tab Take 1 tablet by mouth at bedtime as needed (insomnia) for up to 180 days. famotidine (PEPCID) 40 mg tablet Take 1 tablet by mouth once daily as needed. rosuvastatin (CRESTOR) 40 mg tablet Take 1 tablet by mouth once daily. warfarin (COUMADIN) 5 mg tablet As directed, currently taking as alternating every other day with taking 7.5 mg and 5 mg, plan for max dose of 10 mg per day at this time. pantoprazole DR (PROTONIX) 40 mg tablet take 1 tablet by mouth once daily ON AN EMPTY STOMACH 30 MINUTES PRIOR TO A MEAL potassium chloride (KLOR-CON 10) 10 mEq tablet Take 1 tablet by mouth two times a day. hydrocortisone 2.5 % cream Seldom vitamin B complex (B COMPLEX 1 ORAL) Take 1 tablet by mouth once daily. coenzyme Q10 (COENZYME Q-10) 100 mg cap capsule Take 400 mg by mouth once daily. Cyanocobalamin 2,500 mcg subl Dissolve under the tongue twice daily. calcium, elemental, tab Take 600 mg by mouth twice daily. (Patient taking differently: Take 600 mg by mouth twice daily. ) multivitamin (SOFYA MULTIVITAMIN) tablet Take 1 tablet by mouth once daily. fluticasone-salmeterol (ADVAIR, WIXELA) 250-50 mcg/dose inhaler Inhale 1 Puff as instructed two times a day. (Patient not taking: Reported on 07/25/2024) oxyCODONE-acetaminophen (PERCOCET) 7.5-325 mg tablet Take 1 tablet by mouth every 6 hours as needed for pain for up to 7 days. No current facility-administered medications for this visit. ALLERGIES Allergen Reactions Cyclobenzaprine Other: See Comments Double vision Gabapentin Intolerance Keflex [Cephalexin] Rash ACTIVE PROBLEM LIST Compression Fracture of L1 Lumbar Vertebra (Hcc) - 07/15/2023 Sciatic Leg Pain - 07/15/2023 Bilateral Carotid Artery Stenosis - 06/15/2023 Acute Gastritis Without Hemorrhage - 04/20/2023 Spinal Stenosis of Lumbar Region - 09/24/2022 Pad (Peripheral Artery Disease) - 08/16/2021 Kidney Insufficiency - 04/04/2021 Posterior Vitreous Detachment of Right Eye - 06/19/2020 Age-Related Nuclear Cataract of Right Eye - 06/19/2020 Balance Problem - 03/12/2020 History of Left-Sided Carotid Endarterectomy - 06/10/2019 Colonic Polyp - 11/29/2018 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 Hypercoag studies all have been neg as of 05/2014. Bro w/hypercoag W/U previously as well. Gerd (Gastroesophageal Reflux Disease) - 02/17/2014 Htn (Hypertension) - 07/02/2009 Comment: 03/24/2023: Home BP Cuff Validated. Home BP: 114/71 93 Office BP: 100/56 96 Lumbago - 02/23/2009 Impaired Fasting Glucose - 10/11/2008 Comment: Under 110; See labs 10/12 Hereditary and Idiopathic Peripheral Neuropathy - 10/05/2008 Mixed Hyperlipidemia - 10/05/2008 Benign Prostatic Hyperplasia With Nocturia - 09/04/2008 Insomnia, unspecified - 09/04/2008 Social History Tobacco Use Smoking status: Former Current packs/day: 0.00 Average packs/day: 1 pack/day for 20.0 years (20.0 ttl pk-yrs) Types: Cigarettes Start date: 04/06/1960 Quit date: 04/06/1980 Years since quittin.3 Smokeless tobacco: Never Vaping Use Vaping status: Never Used Substance Use Topics Alcohol use: Not Currently Comment: stopped 07/19/2022 Drug use: Yes Frequency: 7.0 times per week Types: Marijuana Review of Systems Constitutional: Negative for activity change, appetite change and fatigue. HENT: Negative. Respiratory: Positive for shortness of breath. Negative for wheezing. Cardiovascular: Negative for chest pain, palpitations and leg swelling. Gastrointestinal: Negative. Genitourinary: Negative. Musculoskeletal: Negative. Neurological: Negative. All other systems reviewed and are negative. OBJECTIVE BP 118/78 Pulse 98 Wt 194 lb 3.6 oz (88.1kg) SpO2 96% Physical Exam Vitals and nursing note reviewed. Constitutional: Appearance: Normal appearance. Eyes: Extraocular Movements: Extraocular movements intact. Conjunctiva/sclera: Conjunctivae normal. Pupils: Pupils are equal, round, and reactive to light. Cardiovascular: Rate and Rhythm: Normal rate and regular rhythm. Heart sounds: No murmur heard. No friction rub. No gallop. Pulmonary: Effort: Pulmonary effort is normal. No respiratory distress. Breath sounds: Normal breath sounds. No stridor. No wheezing, rhonchi or rales. Chest: Chest wall: No tenderness. Musculoskeletal: Right lower leg: No edema. Left lower leg: No edema. Lymphadenopathy: Cervical: No cervical adenopathy. Skin: General: Skin is warm and dry. Capillary Refill: Capillary refill takes less than 2 seconds. Neurological: General: No focal deficit present. Mental Status: He is alert and oriented to person, place, and time. ASSESSMENT/PLAN: 1. Shortness of breath - ICD9: 786.05, ICD10: R06.02 (primary diagnosis) Cardiac work up negative so far. Continues to have NAVA - LUNG DIFFUSION CAPACITY (DLCO) - SPIROMETRY WITH DILATOR IF OBSTRUCTED - NITRIC OXIDE, EXHALED 2. Primary hypertension - ICD9: 401.9, ICD10: I10 - Controlled - Continue current medications - Recommend home blood pressure monitoring, to bring results to next visit - Encouraged sodium restriction, DASH or Mediterranean diet - Recommend regular aerobic exercise - BACH SCREENING TEST - CLONIDINE HCL 0.1 MG TABLET 3. 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) - ICD9: 415.19, ICD10: I26.99 Continue coumadin 4. Chronic low back pain without sciatica, unspecified back pain laterality - ICD9: 724.2, 338.29, ICD10: M54.50, G89.29 - OXYCODONE-ACETAMINOPHEN 7.5 MG-325 MG TABLET 5. Neck pain - ICD9: 723.1, ICD10: M54.2 - OXYCODONE-ACETAMINOPHEN 7.5 MG-325 MG TABLET Fay Fischer CNP This supervising clinician was available to the student for the entire treatment session as needed. All documentation was reviewed and agreed upon by the supervising clinician. The supervising clinician was present at the beginning of, during , and at the end of the session to discuss with the Patient and Student. Portions of this note have been entered by ancillary staff. I have reviewed and when necessary edited, so that they are an adequate record of my encounter with this patient Please note that parts of this document were created using voice recognition software and therefore may contain grammatical errors. Patient verbalizes understanding of instructions from today's visit and in agreement with treatment plan. Questions answered. Agrees to call the office if questions, concerns of issues with acute symptoms not improving or if they worsen. See diagnoses and orders for additional plan(s). Allergies and medications were reviewed, list was updated, and refills given if needed. Past medical, surgical, social, and family history reviewed and updated as appropriate. Encouraged proper diet & exercise as well as compliance with taking medications. Age-appropriate health preventative measures were discussed. . Return if symptoms worsen or fail to improve, for Keep next scheduled appointment.. MICHI Navarro documented in this encounter [facility] 07-18-2024 Telephone encounter Note See my chart message. [facility] 07-18-2024 Miscellaneous Notes See my chart message. Patient calling back he has appt in [place] on 07/26 so cancelled appt with Zeny and made another one for 07/25 at 1120 am. Patient is more concerned with side effects of Nifedipine causing his shortness of breath. Patient asking to be able to stop taking the medication to see if that clears his shortness of breath? Please advise 1) Pt calling in to update Zeny Lam. Pt states he is currently in the middle of having his nuclear stress test done. He states this was ordered by Teri Gruber when he had a 3 mon followup with her because Zeny Lam was out of the office. Pt states he would like Zeny to review the results and is asking for a followup appt with her this week to discuss the resutls. 2) Pt had to cut call short due to his nuclear stress testing. He asked to see Zeny Thursday afternoon and is aware she is out of the office. Asked for tomorrow afternoon. Told pt would make appt and to check MyChart. He states appt has to be after 1 pm in the afternoon. Zeny's schedule is full tomorrow afternoon and she is out of the office Thu/ and her schedule is full on Thursday. Pt scheduled for next Wednesday 07/26 at 140 pm to discuss stress test results. MyChart msg notifying pt to contact us if that does not work. 3) Pt wanting to let Zeny Lam know that he had to hold his Nifedipine for 24 hours prior to his stress test appt. He states he had to look the med up and when he did, he noticed that side effects from the Nifedipine can be SOB and muscle cramps which he has had both. He states that he feels his SOB occurred about 1 week after initially starting the Nifedipine (which was in January 2024). Pt wants to hold his Nifedipine until he has his followup with Zeny to discuss the medication and stress test results. That appt is next Thursday the . Is it okay for pt to hold the medication until he sees Zeny? documented in this encounter [facility] 07-18-2024 Telephone encounter Note Patient calling back he has appt in [place] on 07/26 so cancelled appt with Zeny and made another one for 07/25 at 1120 am. Patient is more concerned with side effects of Nifedipine causing his shortness of breath. Patient asking to be able to stop taking the medication to see if that clears his shortness of breath? Please advise [facility] 07-18-2024 Telephone encounter Note 1) Pt calling in to update Zeny Lam. Pt states he is currently in the middle of having his nuclear stress test done. He states this was ordered by Teri Gruber when he had a 3 mon followup with her because Zeny Lam was out of the office. Pt states he would like Zeny to review the results and is asking for a followup appt with her this week to discuss the resutls. 2) Pt had to cut call short due to his nuclear stress testing. He asked to see Zeny Thursday afternoon and is aware she is out of the office. Asked for tomorrow afternoon. Told pt would make appt and to check MyChart. He states appt has to be after 1 pm in the afternoon. Zeny's schedule is full tomorrow afternoon and she is out of the office Thu/ and her schedule is full on Thursday. Pt scheduled for next Wednesday 07/26 at 140 pm to discuss stress test results. Марина arcos notifying pt to contact us if that does not work. 3) Pt wanting to let Zeny Lam know that he had to hold his Nifedipine for 24 hours prior to his stress test appt. He states he had to look the med up and when he did, he noticed that side effects from the Nifedipine can be SOB and muscle cramps which he has had both. He states that he feels his SOB occurred about 1 week after initially starting the Nifedipine (which was in January 2024). Pt wants to hold his Nifedipine until he has his followup with Zeny to discuss the medication and stress test results. That appt is next Thursday the . Is it okay for pt to hold the medication until he sees Zeny? [facility] 07-18-2024 History of Presen t illness Narrative RADIOLOGY SERVICE PROGRESS NOTE SERVICE DATE: 07/18/2024 SERVICE TIME: 07:30 AM PATIENT IDENTITY VERIFICATION COMPLETED USING TWO (2) STANDARD IDENTIFIERS: Name and Date of confirmed by patient verbally FALL SCREENING: Has the patient had 2 falls in the last year or 1 fall with injury or currently using an Ambulatory Assistive Device (Walker, Cane, Wheelchair, Crutches, etc.)? Yes, Patient High Risk for Falls What interventions were put in place to prevent falls during this visit? Instructed Patient to Call for Help if Needed, Offered Assistance with Transfers/Clothing, Instructed Patient to Remain Seated (Not on Exam Table) Until Exam, Increased Observations by Caregivers, and Escorted to/from Restroom PATIENT GENDER DATA: .male ALLERGIES: Reviewed and unchanged MEDICATIONS REVIEWED: No PATIENT RELEVANT IMPLANT DATA REVIEWED: Not Applicable PATIENT PRESENTS WITH AN IMPLANTABLE OR ATTACHED REGULATORY TECHNICIAN: n/a CREATININE: Creatinine Date Value Ref Range Status 02/09/2024 0.86 0.73 - 1.22 mg/dL Final 12/14/2023 0.81 0.73 - 1.22 mg/dL Final 09/08/2023 0.82 0.73 - 1.22 mg/dL Final Estimated Glomerular Filtration Rate Date Value Ref Range Status 02/09/2024 88 >=60 mL/min/1.73m Final Comment: Estimated Glomerular Filtration Rate (eGFR) is calculated using the 2020 CKD-EPI creatinine equation. This equation utilizes serum creatinine, sex, and age as parameters. The creatinine assay has traceable calibration to isotope dilution-mass spectrometry. Refer to KDIGO guidelines for clinical interpretation. In patients with unstable renal function, e.g. those with acute kidney injury, the eGFR may not accurately reflect actual GFR. eGFR- Date Value Ref Range Status 05/07/2021 >60 Final P.O.C.T. RESULTS: N/A July 18, [address] PERFORMED: No IV SITE: Ambulatory: A peripheral IV was started in the Left antecubital site with a Angio cath: 22 gauge. POST EXAM PIV STATUS: Discontinued PROCEDURE TYPE: NM Stress: 13.9 mCi [id number]-[id number] was administered IV for Rest Imaging at 07:38 by . 36 mCi [id number] was administered IV for Stress Imaging at 08:45 by . PATIENT DISCHARGED TO: Ambulatory patient, left NM department area. Is this a therapy: No A Diagnostic radioactive procedure has taken place, with no further precautions necessary other than routine body substance precautions. More information regarding radiation safety can be found using this link: [email or web address] SIGNATURE: RT Lion(Jose J) PATIENT NAME: Alex Brooks DATE: July 18, 2024 TIME: 12:00 PM PAGER/CONTACT #: documented in this encounter [facility] 07-13-2024 Telephone encounter Note Pt called and is notified of providers message and instructions. Pt voices understanding. Updated Anticoag tracker. Cyndy Whelan RN [facility] 07-13-2024 Miscellaneous Notes Pt called and is notified of providers message and instructions. Pt voices understanding. Updated Anticoag tracker. Cyndy Whelan RN Continue current dose and ok for check on 07/27. Last INR: INR Home CoaguChek 2.3 07/13/2024 Current dose of coumadin is: 7.5 mg and 5 mg alternating dose. 10 mg on Thursday before he tests Last date of dose change: 05-18-24. Previous INR (date and result): 3.0 06/29/2024 Patient has INR testing scheduled for 07/27 Additional Clinical Information or narrative: No alcohol No change in diet No antibiotics No missed documented in this encounter [facility] 07-13-2024 Telephone encounter Note Continue current dose and ok for check on 07/27. [facility] 07-13-2024 Telephone encounter Note Last INR: INR Home CoaguChek 2.3 07/13/2024 Current dose of coumadin is: 7.5 mg and 5 mg alternating dose. 10 mg on Thursday before he tests Last date of dose change: 05-18-24. Previous INR (date and result): 3.0 06/29/2024 Patient has INR testing scheduled for 07/27 Additional Clinical Information or narrative: No alcohol No change in diet No antibiotics No missed [facility] 07-07-2024 Telephone encounter Note Pt phoned to let Zeny know his stress test is scheduled for 07/18/24. States he is taking a steroid inhaler, Wixela 250/50. It costs $45 / 30 days. Pt spoke with pharmacist who tells him he doesn't know anything less expensive than that. Reports the SOB is 20-30% better as of today. States he will stop the Wixela on 07/16/24, before the stress test on 07/18/24. States he will run out of the Wixela on the anyway. Pt asking if Zeny knows of anything cheaper than wixela. States you and he can decide whether or not he should continue it after you get the results of the stress test. States this is not urgent you can contact him next week. [facility] 07-07-2024 Miscellaneous Notes Pt phoned to let Zeny know his stress test is scheduled for 07/18/24. States he is taking a steroid inhaler, Wixela 250/50. It costs $45 / 30 days. Pt spoke with pharmacist who tells him he doesn't know anything less expensive than that. Reports the SOB is 20-30% better as of today. States he will stop the Wixela on 07/16/24, before the stress test on 07/18/24. States he will run out of the Wixela on the anyway. Pt asking if Zeny knows of anything cheaper than wixela. States you and he can decide whether or not he should continue it after you get the results of the stress test. States this is not urgent you can contact him next week. documented in this encounter [facility] 07-01-2024 Telephone encounter Note Pharmacy request denied. Patient needs to contact office for refills. Tammy Wang MA [facility] 07-01-2024 Miscellaneous Notes Pharmacy request denied. Patient needs to contact office for refills. Tammy Wang MA documented in this encounter [facility] 06-29-2024 Telephone encounter Note PATIENT NOTIFIED OF SAME. [facility] 06-29-2024 Miscellaneous Notes PATIENT NOTIFIED OF SAME. Continue with the current dose and repeat INR in 3 weeks. Thanks. Zeny Lam APRN.CNP Last INR: INR Lab CoaguChek 3.0 06/29/2024 Current dose of coumadin is: Alternating 7.5 mg and 5 mg daily, 10 mg one day a week. Last date of dose change: 05-18-24. Previous INR (date and result): 2.7 06/15/2024 Additional Clinical Information or Narrative: No missed doses, No antibiotics, no diet changes however on Thursday he did have a bottle of white wine, no unusual bleeding or bruising. documented in this encounter [facility] 06-29-2024 Telephone encounter Note Continue with the current dose and repeat INR in 3 weeks. Thanks. Zeny Lam APRN.CNP [facility] 06-29-2024 Telephone encounter Note Patient also wants to let Zeny know that he he doesn't want a stent. He would like to have the same procedure he had done as with his carotid arteries if this is possible. He said he knows the stress test needs completed first but he just wanted to make note of this now. Antoinette Meadows RN [facility] 06-29-2024 Miscellaneous Notes Patient also wants to let Zeny know that he he doesn't want a stent. He would like to have the same procedure he had done as with his carotid arteries if this is possible. He said he knows the stress test needs completed first but he just wanted to make note of this now. Antoinette Meadows RN documented in this encounter [facility] 06-29-2024 Telephone encounter Note Last INR: INR Lab CoaguChek 3.0 06/29/2024 Current dose of coumadin is: Alternating 7.5 mg and 5 mg daily, 10 mg one day a week. Last date of dose change: 05-18-24. Previous INR (date and result): 2.7 06/15/2024 Additional Clinical Information or Narrative: No missed doses, No antibiotics, no diet changes however on Thursday he did have a bottle of white wine, no unusual bleeding or bruising. [facility] 06-25-2024 Telephone encounter Note Prescription Refill Information The patient has been identified by name and date of : Yes Caregiver verified no other encounters exist for this prescription request: Yes Caregiver confirmed with patient/requestor that no other refills are due, in the near future, with this provider at this time: Yes The last office visit in the department: 06/08/24 Does the patient have a future office visit with this provider/department: Yes 08/15/24 Requested Prescriptions Pending Prescriptions Disp Refills olmesartan (BENICAR) 40 mg tablet 90 tablet 1 Sig: Take 1 tablet by mouth once daily. Gabby Rm LPN June 25, 2024 8:47 AM [facility] 06-25-2024 Miscellaneous Notes Prescription Refill Information The patient has been identified by name and date of : Yes Caregiver verified no other encounters exist for this prescription request: Yes Caregiver confirmed with patient/requestor that no other refills are due, in the near future, with this provider at this time: Yes The last office visit in the department: 06/08/24 Does the patient have a future office visit with this provider/department: Yes 08/15/24 Requested Prescriptions Pending Prescriptions Disp Refills olmesartan (BENICAR) 40 mg tablet 90 tablet 1 Sig: Take 1 tablet by mouth once daily. Gabby Rm LPN June 25, 2024 8:47 AM documented in this encounter [facility] 06-21-2024 Telephone encounter Note Returned patients call offered patient billing number. Patient states he already has number. Informed patient that we are unable to perform nail care as nurse visit. Patient verbalized understanding and will call billing. Ellen Coffman LPN [facility] Work Phone: 06-21-2024 Miscellaneous Notes Returned patients call offered patient billing number. Patient states he already has number. Informed patient that we are unable to perform nail care as nurse visit. Patient verbalized understanding and will call billing. Ellen Coffman LPN Patient called in and is wondering if he can have a nurse visit for toenail cutting rather than a whole office visit with Dr. Green. He states he pays a $20 copay and then gets charged an additional $10 for nail cutting when he only comes in to see Dr. Green to get his nails cut. He does not want to see Dr. Green for anything other than that. Patient is requesting a call back since he has an upcoming appt with him. Hilaria Harp LPN documented in this encounter [facility] 06-20-2024 Telephone encounter Note PATIENT NOTIFIED OF SAME. [facility] 06-20-2024 Miscellaneous Notes PATIENT NOTIFIED OF SAME. We can discuss the PSA testing in more depth with his follow up but at this time I would not recommend adding it to his upcoming labs. Patient called in and wondered if he should have a PSA added to his upcoming labs to be completed. He states when he saw [facility] they do not order those after the age of 78. Hilaria Harp LPN documented in this encounter [facility] 06-20-2024 Telephone encounter Note We can discuss the PSA testing in more depth with his follow up but at this time I would not recommend adding it to his upcoming labs. [facility] 06-20-2024 Telephone encounter Note Patient called in and wondered if he should have a PSA added to his upcoming labs to be completed. He states when he saw [facility] they do not order those after the age of 78. Hilaria Harp LPN [facility] 06-20-2024 Telephone encounter Note Patient called in and is wondering if he can have a nurse visit for toenail cutting rather than a whole office visit with Dr. Green. He states he pays a $20 copay and then gets charged an additional $10 for nail cutting when he only comes in to see Dr. Green to get his nails cut. He does not want to see Dr. Green for anything other than that. Patient is requesting a call back since he has an upcoming appt with him. Hilaria Harp LPN [facility] 06-16-2024 Progress note Formatting of t his note might be different from the original. magnesium within normal limits [facility] Work Phone: 06-16-2024 Miscellaneous Notes magnesium within normal limits documented in this encounter [facility] 06-15-2024 Telephone encounter Note See my chart reply [facility] 06-15-2024 Miscellaneous Notes See my chart reply Patient calls back to add that he forgot to mention he would like to start acupuncture in [place] again for lower back pain and bulging disc with Walt Yang and asking Zeny's opinion. Patient to check with insurance but will need letter as previously received last year if Zeny agrees. Please see below for anti coag Antoinette Meadows, RN Last INR: INR Lab CoaguChek 2.7 06/15/2024 Current dose of coumadin is: Alternating 7.5 mg and 5 mg daily, 10 mg one day a week. Last date of dose change: 05-18-24. Previous INR (date and result): 06-01-24, 2.7 Additional Clinical Information or narrative: yes: No unusual bleeding or bruising, No recent AB, No etoh, No change in diet, No missed doses. Pt already scheduled his next INR check for 06-29-24. Pt also wants Zeny to know reducing BP medication to 1 daily helped to reduce SOB but also made his BP go up- pt went back to taking 1 in the am and 1 in the pm- BP now is perfect. Also wants Zeny to know he will start the inhaler tomorrow. Pt asking Zeny to advise him via MyChart or Phone call. documented in this encounter [facility] 06-15-2024 Telephone encounter Note Patient calls back to add that he forgot to mention he would like to start acupuncture in [place] again for lower back pain and bulging disc with Walt Yang and asking Zeny's opinion. Patient to check with insurance but will need letter as previously received last year if Zeny agrees. Please see below for anti coag Antoinette Meadows RN [facility] 06-15-2024 Telephone encounter Note Last INR: INR Lab CoaguChek 2.7 06/15/2024 Current dose of coumadin is: Alternating 7.5 mg and 5 mg daily, 10 mg one day a week. Last date of dose change: 05-18-24. Previous INR (date and result): 06-01-24, 2.7 Additional Clinical Information or narrative: yes: No unusual bleeding or bruising, No recent AB, No etoh, No change in diet, No missed doses. Pt already scheduled his next INR check for 06-29-24. Pt also wants Zeny to know reducing BP medication to 1 daily helped to reduce SOB but also made his BP go up- pt went back to taking 1 in the am and 1 in the pm- BP now is perfect. Also wants Zeny to know he will start the inhaler tomorrow. Pt asking Zeny to advise him via MyChart or Phone call. [facility] 06-08-2024 Miscellaneous Notes Prescription Refill Information The patient has been identified by name and date of : Yes Caregiver verified no other encounters exist for this prescription request: Yes Caregiver confirmed with patient/requestor that no other refills are due, in the near future, with this provider at this time: Yes The last office visit in the department: 06/08/24 Does the patient have a future office visit with this provider/department: Yes 08/15/24 Requested Prescriptions Pending Prescriptions Disp Refills rosuvastatin (CRESTOR) 40 mg tablet 90 tablet 3 Sig: Take 1 tablet by mouth once daily. Gabby Rm LPN June 08, 2024 4:17 PM documented in this encounter [facility] 06-08-2024 Telephone encounter Note Prescription Refill Information The patient has been identified by name and date of : Yes Caregiver verified no other encounters exist for this prescription request: Yes Caregiver confirmed with patient/requestor that no other refills are due, in the near future, with this provider at this time: Yes The last office visit in the department: 06/08/24 Does the patient have a future office visit with this provider/department: Yes 08/15/24 Requested Prescriptions Pending Prescriptions Disp Refills rosuvastatin (CRESTOR) 40 mg tablet 90 tablet 3 Sig: Take 1 tablet by mouth once daily. Gabby Rm LPN June 08, 2024 4:17 PM [facility] 06-08-2024 History of Presen t illness Narrative SUBJECTIVE Alex Brooks is a 78 year old male here today for a check up on his medical problems. Chief Complaint Patient presents with: Recheck: update of current condition SOB with stress test 07/18/24 HPI Alex Brooks is a 78 year old male. He presents today for recheck. He was seen 05/17 with [facility] for shortness of breath. Continues to have shortness of breath. This occurs with exertion and resolves with rest. Onset was over the last year and has gradually been worsening. He has had an ECHO on 08/14/2023 with EF 61%, grade I diastolic dysfunction. 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 CXR from 08/2023 was without issue. Labs overall stable. July 18 has a stress test scheduled. No chest pain and no chest tightness and no cough. Still some back pain in the back and upper legs. Taking the Percocet as needed when severe. Still with some vision issues. Blurred vision. Most recent eye exam he was told this was okay. Seeing the eye [facility]. Blood pressure has been controlled. Still with buzzing in the head but this has been on going for years. Recent head CT was stable. No dizziness or light headedness or headaches. Seen with vascular. Right side is a moderate blockage. His medications were reviewed today and his list is now up to date. Medications Current Outpatient Medications Medication Sig LORazepam (ATIVAN) 2 mg tab Take 1 tablet by mouth at bedtime as needed (insomnia) for up to 180 days. famotidine (PEPCID) 40 mg tablet Take 1 tablet by mouth once daily as needed. warfarin (COUMADIN) 5 mg tablet As directed, currently taking as alternating every other day with taking 7.5 mg and 5 mg, plan for max dose of 10 mg per day at this time. NIFEdipine ER (PROCARDIA XL) 30 mg 24 hr tablet Take 1 tablet by mouth once daily. cloNIDine HCl (CATAPRES) 0.1 mg tablet Take 1-2 tablets by mouth three times a day as needed (for SBP greater than 150). olmesartan (BENICAR) 40 mg tablet Take 1 tablet by mouth once daily. rosuvastatin (CRESTOR) 40 mg tablet Take 1 tablet by mouth once daily. Olopatadine (PATADAY ONCE DAILY RELIEF) 0.2 % drop Use 1 Drop in both eyes once daily. pantoprazole DR (PROTONIX) 40 mg tablet take 1 tablet by mouth once daily ON AN EMPTY STOMACH 30 MINUTES PRIOR TO A MEAL potassium chloride (KLOR-CON 10) 10 mEq tablet Take 1 tablet by mouth two times a day. hydrocortisone 2.5 % cream Seldom vitamin B complex (B COMPLEX 1 ORAL) Take 1 tablet by mouth once daily. magnesium oxide 400 mg magnesium cap Take 1 capsule by mouth once daily. SAW PALMETTO ORAL Take 400 mg by mouth twice daily. coenzyme Q10 (COENZYME Q-10) 100 mg cap capsule Take 400 mg by mouth once daily. Cyanocobalamin 2,500 mcg subl Dissolve under the tongue twice daily. calcium, elemental, tab Take 600 mg by mouth twice daily. multivitamin (SOFYA MULTIVITAMIN) tablet Take 1 tablet by mouth once daily. fluticasone-salmeterol (ADVAIR, WIXELA) 250-50 mcg/dose inhaler Inhale 1 Puff as instructed two times a day. oxyCODONE-acetaminophen (PERCOCET) 7.5-325 mg tablet Take 1 tablet by mouth every 6 hours as needed for pain for up to 7 days. No current facility-administered medications for this visit. ALLERGIES Allergen Reactions Cyclobenzaprine Other: See Comments Double vision Gabapentin Intolerance Keflex [Cephalexin] Rash ACTIVE PROBLEM LIST Compression Fracture of L1 Lumbar Vertebra ([facility]) - 07/15/2023 Sciatic Leg Pain - 07/15/2023 Bilateral Carotid Artery Stenosis - 06/15/2023 Acute Gastritis Without Hemorrhage - 04/20/2023 Spinal Stenosis of Lumbar Region - 09/24/2022 Pad (Peripheral Artery Disease) ([facility]) - 08/16/2021 Kidney Insufficiency - 04/04/2021 Posterior Vitreous Detachment of Right Eye - 06/19/2020 Age-Related Nuclear Cataract of Right Eye - 06/19/2020 Balance Problem - 03/12/2020 History of Left-Sided Carotid Endarterectomy - 06/10/2019 Colonic Polyp - 11/29/2018 Usp (Current) Use of Anticoagulants - 09/15/2018 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 Hypercoag studies all have been neg as of 05/2014. Bro w/hypercoag W/U previously as well. Gerd (Gastroesophageal Reflux Disease) - 02/17/2014 Htn (Hypertension) - 07/02/2009 Comment: 03/24/2023: Home BP Cuff Validated. Home BP: 114/71 93 Office BP: 100/56 96 Lumbago - 02/23/2009 Impaired Fasting Glucose - 10/11/2008 Comment: Under 110; See labs 10/12 Hereditary and Idiopathic Peripheral Neuropathy - 10/05/2008 Mixed Hyperlipidemia - 10/05/2008 Benign Prostatic Hyperplasia With Nocturia - 09/04/2008 Insomnia, unspecified - 09/04/2008 Social History Tobacco Use Smoking status: Former Current packs/day: 0.00 Average packs/day: 1 pack/day for 20.0 years (20.0 ttl pk-yrs) Types: Cigarettes Start date: 04/06/1960 Quit date: 04/06/1980 Years since quittin.2 Smokeless tobacco: Never Vaping Use Vaping status: Never Used Substance Use Topics Alcohol use: Not Currently Comment: stopped 07/19/2022 Drug use: Yes Frequency: 7.0 times per week Types: Marijuana Review of Systems Constitutional: Negative. Respiratory: Positive for shortness of breath. Negative for cough, chest tightness and wheezing. Cardiovascular: Negative for chest pain, palpitations and leg swelling. OBJECTIVE BP 100/60 Pulse 84 Wt 194 lb 7.1 oz (88.2kg) SpO2 96% Physical Exam Vitals and nursing note reviewed. Constitutional: General: He is awake. He is not in acute distress. Appearance: Normal appearance. He is well-developed and well-groomed. He is not ill-appearing, toxic-appearing or diaphoretic. HENT: Head: Normocephalic. Right Ear: External ear normal. Left Ear: External ear normal. Nose: Nose normal. Eyes: General: Vision grossly intact. Conjunctiva/sclera: Conjunctivae normal. Pupils: Pupils are equal, round, and reactive to light. Neck: Vascular: No JVD. Trachea: Trachea normal. Cardiovascular: Rate and Rhythm: Normal rate and regular rhythm. Pulses: Normal pulses. Heart sounds: Normal heart sounds. No murmur heard. Pulmonary: Effort: Pulmonary effort is normal. No accessory muscle usage, prolonged expiration or respiratory distress. Breath sounds: Normal breath sounds. Musculoskeletal: Cervical back: Neck supple. Skin: General: Skin is warm and dry. Capillary Refill: Capillary refill takes less than 2 seconds. Neurological: General: No focal deficit present. Mental Status: He is alert and oriented to person, place, and time. Mental status is at baseline. Psychiatric: Attention and Perception: Attention and perception normal. Mood and Affect: Mood and affect normal. Speech: Speech normal. Behavior: Behavior normal. Behavior is cooperative. Thought Content: Thought content normal. Cognition and Memory: Cognition and memory normal. Judgment: Judgment normal. ASSESSMENT/PLAN:: 1. Shortness of breath - ICD9: 786.05, ICD10: R06.02 (primary diagnosis) Our plan is to get the stress test as scheduled, trial an ICS-LABA inhaler, if stress test negative then consider pulmonary work up with PFTs and Chest CT. Discussed new medication including but not limited to reason for use, possible side effects, administration, signs and symptoms to monitor for and when to seek medical attention. - FLUTICASONE 250 MCG-SALMETEROL 50 MCG/DOSE BLISTR POWDR FOR INHALATION 2. Primary hypertension - ICD9: 401.9, ICD10: I10 - Controlled - Continue current medications - Recommend home blood pressure monitoring, to bring results to next visit - Encouraged sodium restriction, DASH or Mediterranean diet - Recommend regular aerobic exercise 3. Chronic low back pain without sciatica, unspecified back pain laterality - ICD9: 724.2, 338.29, ICD10: M54.50, G89.29 Overall stable, percocet as needed when severe. 4. Bilateral carotid artery stenosis - ICD9: 433.10, 433.30, ICD10: I65.23 Following with vascular. 5. Vision abnormalities - ICD9: 368.9, ICD10: H53.9 [facility] appointment coming up. Portions of this note have been entered by ancillary staff. I have reviewed and when necessary edited, so that they are an adequate record of my encounter with this patient Please note that parts of this document were created using voice recognition software and therefore may contain grammatical errors. Patient verbalizes understanding of instructions from today's visit and in agreement with treatment plan. Questions answered. Agrees to call the office if questions, concerns of issues with acute symptoms not improving or if they worsen. See diagnoses and orders for additional plan(s). Allergies and medications were reviewed, list was updated, and refills given if needed. Past medical, surgical, social, and family history reviewed and updated as appropriate. Encouraged proper diet & exercise as well as compliance with taking medications. Age-appropriate health preventative measures were discussed. Return if symptoms worsen or fail to improve, for Keep next scheduled appointment.. MICHI Navarro documented in this encounter [facility] 06-08-2024 Telephone encounter Note Prescription Refill Information The patient has been identified by name and date of : Yes Caregiver verified no other encounters exist for this prescription request: Yes Caregiver confirmed with patient/requestor that no other refills are due, in the near future, with this provider at this time: Yes The last office visit in the department: 02/15/24 Does the patient have a future office visit with this provider/department: Yes 06/08/24 Requested Prescriptions Pending Prescriptions Disp Refills famotidine (PEPCID) 40 mg tablet 90 tablet 1 Sig: Take 1 tablet by mouth once daily as needed. Gabby Rm LPN June 08, 2024 9:10 AM [facility] 06-08-2024 Miscellaneous Notes Prescription Refill Information The patient has been identified by name and date of : Yes Caregiver verified no other encounters exist for this prescription request: Yes Caregiver confirmed with patient/requestor that no other refills are due, in the near future, with this provider at this time: Yes The last office visit in the department: 02/15/24 Does the patient have a future office visit with this provider/department: Yes 06/08/24 Requested Prescriptions Pending Prescriptions Disp Refills famotidine (PEPCID) 40 mg tablet 90 tablet 1 Sig: Take 1 tablet by mouth once daily as needed. Gabby Rm LPN June 08, 2024 9:10 AM documented in this encounter [facility] 06-08-2024 Telephone encounter Note Prescription Refill Information The patient has been identified by name and date of : Yes Caregiver verified no other encounters exist for this prescription request: Yes Caregiver confirmed with patient/requestor that no other refills are due, in the near future, with this provider at this time: Yes The last office visit in the department: 02/15/24 Does the patient have a future office visit with this provider/department: Yes 06/08/24 Requested Prescriptions Pending Prescriptions Disp Refills LORazepam (ATIVAN) 2 mg tab 90 tablet 1 Sig: Take 1 tablet by mouth at bedtime as needed (insomnia) for up to 180 days. Gabby Rm LPN June 08, 2024 9:09 AM [facility] 06-08-2024 Miscellaneous Notes Prescription Refill Information The patient has been identified by name and date of : Yes Caregiver verified no other encounters exist for this prescription request: Yes Caregiver confirmed with patient/requestor that no other refills are due, in the near future, with this provider at this time: Yes The last office visit in the department: 02/15/24 Does the patient have a future office visit with this provider/department: Yes 06/08/24 Requested Prescriptions Pending Prescriptions Disp Refills LORazepam (ATIVAN) 2 mg tab 90 tablet 1 Sig: Take 1 tablet by mouth at bedtime as needed (insomnia) for up to 180 days. Gabby Rm LPN June 08, 2024 9:09 AM documented in this encounter [facility] 06-06-2024 Telephone encounter Note Noted, we will address acute concerns with the visit. [facility] 06-06-2024 Miscellaneous Notes Noted, we will address acute concerns with the visit. Pt called in and reports he sees provider on 06/08 at 3 pm. Pt states he has several things he needs to go over with provider when he sees her. Pt states he saw Cardiology and they want him to have a Nuclear Stress test on 07/18/24 since provider has run all other testing. He states he he is having serious SOB, and can't go 25 ft without getting SOB. He wanted to know if provider thought this was soon enough. He also said he has been having back and leg pain. He states the back pain is arthritis and he takes the Percocet's and it helps, but he can only take so many of those. Pt was asking if there is anything else he could take for the arthritis with being on Coumadin, and I said Tylenol arthritis, and he said Tylenol usually doesn't help him but he could try that. Pt reports he has been having vision issues everyday of his vision getting blurry. He said he had gone and seen his eye doctor Dr Medina and he was having the blurry vision and this doctor told him his vision was fine. They told him he was reading fine, and Pt states his eyes were as bad as they could have been. He states everyday on and off his vision will get blurry and there is nothing that he can tell that is causing it. Pt states he has na appointment with his retinal surgeon up at the [facility] but that isn't until August. I told Pt provider may not have time to go over all of this information in a 20 min appointment. Pt states that's why he wanted to let her know ahead of time, and she will usually extend the appointment. I told him she didn't have any time to extend the appointment. Pt states he doesn't need a call back. He just wanted to let provider know a head of time before appointment. documented in this encounter [facility] 06-06-2024 Telephone encounter Note Pt called in and reports he sees provider on 06/08 at 3 pm. Pt states he has several things he needs to go over with provider when he sees her. Pt states he saw Cardiology and they want him to have a Nuclear Stress test on 07/18/24 since provider has run all other testing. He states he he is having serious SOB, and can't go 25 ft without getting SOB. He wanted to know if provider thought this was soon enough. He also said he has been having back and leg pain. He states the back pain is arthritis and he takes the Percocet's and it helps, but he can only take so many of those. Pt was asking if there is anything else he could take for the arthritis with being on Coumadin, and I said Tylenol arthritis, and he said Tylenol usually doesn't help him but he could try that. Pt reports he has been having vision issues everyday of his vision getting blurry. He said he had gone and seen his eye doctor Dr Medina and he was having the blurry vision and this doctor told him his vision was fine. They told him he was reading fine, and Pt states his eyes were as bad as they could have been. He states everyday on and off his vision will get blurry and there is nothing that he can tell that is causing it. Pt states he has na appointment with his retinal surgeon up at the [facility] but that isn't until August. I told Pt provider may not have time to go over all of this information in a 20 min appointment. Pt states that's why he wanted to let her know ahead of time, and she will usually extend the appointment. I told him she didn't have any time to extend the appointment. Pt states he doesn't need a call back. He just wanted to let provider know a head of time before appointment. [facility] 06-03-2024 Telephone encounter Note Spoke with pt and information listed below given. Pt verbalizes understanding. Maribel Oden LPN [facility] 06-03-2024 Miscellaneous Notes Spoke with pt and information listed below given. Pt verbalizes understanding. Maribel Oden LPN Reviewed the appointment with Teri Gruber, who ordered the stress test due to NAVA that is very limiting (Exertional SOB-lives in 1 bedroom apartment and can't walk from one end to the other.) 1) The stress test is to help rule in or rule out whether his shortness is breath is due to coronary artery disease causing inadequate blood flow to the heart muscle. 2) and 3) Pulmonary function tests can be done as well but usually with his degree of SOB that limits him from being able to walk in his 1 bedroom apartment, it is important to rule out severe coronary artery disease (CAD) since if it is severe but not treated, that can result in a heart attack. PFTs can be done, but that does not change the need for a stress test to evaluate his degree of SOB. Pt calling because he has some questions. 1) pt is scheduled for a nuclear stress test scheduled. Pt did not want it sooner because he wanted these questions answered first. He wants to know if this will show why he is short of breath? 2) Does he need pulmonary testing to try decide why he is out of breath? 3) If pulmonary is necessary does he need to do the stress test ? Please advise pt. Maribel Oden LPN documented in this encounter [facility] 06-02-2024 Telephone encounter Note Reviewed the appointment with Teri Gruber, who ordered the stress test due to NAVA that is very limiting (Exertional SOB-lives in 1 bedroom apartment and can't walk from one end to the other.) 1) The stress test is to help rule in or rule out whether his shortness is breath is due to coronary artery disease causing inadequate blood flow to the heart muscle. 2) and 3) Pulmonary function tests can be done as well but usually with his degree of SOB that limits him from being able to walk in his 1 bedroom apartment, it is important to rule out severe coronary artery disease (CAD) since if it is severe but not treated, that can result in a heart attack. PFTs can be done, but that does not change the need for a stress test to evaluate his degree of SOB. [facility] 06-02-2024 Telephone encounter Note Pt called and is notified of providers results and instructions. Pt voices understanding. Updated Anticoag tracker. Pt wanted to let provider know that she had told him to reduce his Magnesium for diarrhea and that helped. Cyndy Whelan RN [facility] 06-02-2024 Miscellaneous Notes Pt called and is notified of providers results and instructions. Pt voices understanding. Updated Anticoag tracker. Pt wanted to let provider know that she had told him to reduce his Magnesium for diarrhea and that helped. Cyndy Whelan RN Continue with Coumadin dose unchanged and check INR in 2 weeks. Last INR: INR Home CoaguChek 2.7 06/01/2024 Current dose of coumadin is: Alternate 7.5 mg and 5 mg daily, and he took 10 mg on Thursday. Last date of dose change: 05/18/24. Previous INR (date and result): 05/18/24, 2.2 Additional Clinical Information or narrative: yes: Pt denies bruising and bleeding, or any changes to diet, denies missed doses, reports he drank alcohol but it was 4 days before testing. documented in this encounter [facility] 06-02-2024 Telephone encounter Note Continue with Coumadin dose unchanged and check INR in 2 weeks. [facility] Work Phone: 06-01-2024 Telephone encounter Note Last INR: INR Home CoaguChek 2.7 06/01/2024 Current dose of coumadin is: Alternate 7.5 mg and 5 mg daily, and he took 10 mg on Thursday. Last date of dose change: 05/18/24. Previous INR (date and result): 05/18/24, 2.2 Additional Clinical Information or narrative: yes: Pt denies bruising and bleeding, or any changes to diet, denies missed doses, reports he drank alcohol but it was 4 days before testing. [facility] 05-30-2024 Telephone encounter Note Pt calling because he has some questions. 1) pt is scheduled for a nuclear stress test scheduled. Pt did not want it sooner because he wanted these questions answered first. He wants to know if this will show why he is short of breath? 2) Does he need pulmonary testing to try decide why he is out of breath? 3) If pulmonary is necessary does he need to do the stress test ? Please advise pt. Maribel Oden LPN [facility] 05-24-2024 History of Presen t illness Narrative Images from the original note were not included. [facility] [place] DEPARTMENT OF VASCULAR SURGERY OUTPATIENT VISIT DATE May 24, 2024 OUTPATIENT VISIT TYPE ESTABLISHED SERVICE DATE: 05/24/2024 SERVICE TIME: 11:51 AM PRIMARY CARE PHYSICIAN: Zeny Lam APRN.DELIVERY CLERK HISTORY OF PRESENT ILLNESS: Mr. Brooks is a 78 year old male who presents today for a vascular surgery follow-up visit for carotid artery disease. Denies focal deficit or monocular vision loss. Denies lifestyle limiting claudication PAST MEDICAL HISTORY Diagnosis Date Asthma as a teenager Benign prostatic hyperplasia with nocturia Bilateral carotid artery stenosis 02/14/2019 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 Carotid stenosis, left 02/21/2019 s/p CEA Closed nondisplaced fracture of distal phalanx of right great toe 01/16/2021 Colonic polyp 11/29/2018 DDD (degenerative disc disease), lumbar 03/08/2014 Elevated prostate specific antigen (PSA) 09/15/2016 Esophageal reflux Fall at home 01/05/2018 Right Rib Fracture Hypertension Hypertrophy of prostate with urinary obstruction and other lower urinary tract symptoms (LUTS) 09/04/2008 With mild night-time symptoms, exam ok as of 09/2008 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 Related to sugar? -- see fasting glucose 2008; Impaired fasting glucose 10/11/2008 Under 110; See labs 10/12 INSOMNIA NOS 09/04/2008 Doing well with as-needed benzo at night Left bundle branch block 05/28/2010 Lumbago 02/23/2009 Lumbosacral spondylosis without myelopathy 08/07/2011 Lung disease [place] Fever Macular hole left eye Macular hole of left eye 06/19/2020 Mixed hyperlipidemia 10/05/2008 Neuropathy Nuclear sclerosis of right eye PE (pulmonary embolism) 09/04/2011 Peripheral vascular disease (HCC) Perirectal abscess 12/12/2008 Postconcussion syndrome 11/11/2011 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) 05/08/2014 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 REMV CATARACT EXTRACAP,INSERT LENS Left TRANSCATH RETRIEVAL,PERCUT 09/20/2012 IVC filter retrieval TRIESENCE INTRAVITREAL INJECTION OS (LEFT EYE) 10/25/2013 VENA CAVA FILTER 09/26/2011 later removed SOCIAL HISTORY Social History Tobacco Use Smoking status: Former Current packs/day: 0.00 Average packs/day: 1 pack/day for 20.0 years (20.0 ttl pk-yrs) Types: Cigarettes Start date: 04/06/1960 Quit date: 04/06/1980 Years since quittin.1 Smokeless tobacco: Never Vaping Use Vaping status: Never Used Substance Use Topics Alcohol use: Not Currently Comment: stopped 07/19/2022 Drug use: Yes Frequency: 7.0 times per week Types: Marijuana MEDICATIONS: oxyCODONE-acetaminophen (PERCOCET) 7.5-325 mg tablet Take 1 tablet by mouth every 6 hours as needed for pain for up to 7 days. famotidine (PEPCID) 40 mg tablet Take 1 tablet by mouth once daily as needed. LORazepam (ATIVAN) 2 mg tab Take 1 tablet by mouth at bedtime as needed (insomnia) for up to 180 days. warfarin (COUMADIN) 5 mg tablet As directed, currently taking as alternating every other day with taking 7.5 mg and 5 mg, plan for max dose of 10 mg per day at this time. NIFEdipine ER (PROCARDIA XL) 30 mg 24 hr tablet Take 1 tablet by mouth once daily. cloNIDine HCl (CATAPRES) 0.1 mg tablet Take 1-2 tablets by mouth three times a day as needed (for SBP greater than 150). olmesartan (BENICAR) 40 mg tablet Take 1 tablet by mouth once daily. rosuvastatin (CRESTOR) 40 mg tablet Take 1 tablet by mouth once daily. Olopatadine (PATADAY ONCE DAILY RELIEF) 0.2 % drop Use 1 Drop in both eyes once daily. pantoprazole DR (PROTONIX) 40 mg tablet take 1 tablet by mouth once daily ON AN EMPTY STOMACH 30 MINUTES PRIOR TO A MEAL potassium chloride (KLOR-CON 10) 10 mEq tablet Take 1 tablet by mouth two times a day. hydrocortisone 2.5 % cream Seldom vitamin B complex (B COMPLEX 1 ORAL) Take 1 tablet by mouth once daily. magnesium oxide 400 mg magnesium cap Take 1 capsule by mouth once daily. SAW PALMETTO ORAL Take 400 mg by mouth twice daily. coenzyme Q10 (COENZYME Q-10) 100 mg cap capsule Take 400 mg by mouth once daily. Cyanocobalamin 2,500 mcg subl Dissolve under the tongue twice daily. calcium, elemental, tab Take 600 mg by mouth twice daily. multivitamin (SOFYA MULTIVITAMIN) tablet Take 1 tablet by mouth once daily. ALLERGIES: ALLERGIES Allergen Reactions Cyclobenzaprine Other: See Comments Double vision Gabapentin Intolerance Keflex [Cephalexin] Rash PHYSICAL EXAM: BP 98/58 (BP Site: Left Arm, BP Position: Sitting, BP Cuff Size: Regular Adult) Pulse 83 SpO2 95% General: Alert and oriented Neurological: Normal cognition and motor skills. Ext: no significant edema Diagnostic tests reviewed for today's visit: Most recent labs Most recent imaging Carotid Duplex When compared with the prior study, of 04/08/2023 progression of disease is noted on the right side and no significant change is noted on the left side. RIGHT SIDE Common carotid artery: Plaque visualized without evidence of hemodynamically significant stenosis. Internal carotid artery: 50-69% stenosis consistent with moderate carotid artery disease. Vertebral artery: Patent and antegrade flow noted. Subclavian artery: Plaque visualized without evidence of hemodynamically significant stenosis. LEFT SIDE Common carotid artery: Plaque visualized without evidence of hemodynamically significant stenosis. Endarterectomy patch at distal measuring 1.2 cm. Internal carotid artery: <50% stenosis consistent with mild carotid artery disease. Endarterectomy patch from origin to proximal . Vertebral artery: Patent and antegrade flow noted. Abnormal signal suggests pre-steal. Subclavian artery: Patent. IMPRESSION: Mr. Brooks is a 78 year old male with carotid artery stenosis and peripheral arterial disease . PLAN and RECOMMENDATIONS: Recommend repeat imaging in 6 months as increased noted on current duplex Continue current medications SIGNATURE: Edgar Loaiza DO PATIENT NAME: Alex Brooks DATE: May 24, 2024 TIME: 11:51 AM documented in this encounter [facility] 05-19-2024 History of Presen t illness Narrative Images from the original note were not included. Initial Podiatric Office Visit: Chief Complaint: This 78 year old male who presents with chief complaint:dystrophic toenails HPI Patient presents to clinic with complaint of dystrophic toenails. The left great toenail at times will cause him pain Had been receiving treatment elsewhere but his insurance is out of network at the other provider so he is coming here Does have neuropathy and wears afo for dropfoot PAIN EVALUATION 05/12/2024 1014 Pain Location: Back-Lower Description: Aching;Pressure;Stiffness Duration Amount of Time: 24 Duration Units: Hours Frequency: Continuous Intervention/Comfort measure: Other: See comment Comments: I'm on Cumadin and can only take an opioid Percoset for pain. Tylenol and other opiods don't work. Because I'm concern with taking opiods, I'm in constant pain from my lower back. I believe the pain is caused by arthritis. Hemoglobin A1C (%) Date Value 02/09/2024 5.8 12/14/2023 5.9 06/05/2023 5.1 02/25/2023 5.9 08/18/2022 5.6 10/15/2017 5.5 04/14/2017 5.6 10/23/2011 5.7 HBA1C, Alena (%) Date Value 07/24/2011 5.8 08/24/2009 6.3 Hemoglobin A1C (POCT) (%) Date Value 03/22/2021 5.1 PCP: Zeny Lam APRN.DELIVERY CLERK PAST MEDICAL HISTORY Diagnosis Date Asthma as a teenager Benign prostatic hyperplasia with nocturia Bilateral carotid artery stenosis 02/14/2019 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 Carotid stenosis, left 02/21/2019 s/p CEA Closed nondisplaced fracture of distal phalanx of right great toe 01/16/2021 Colonic polyp 11/29/2018 DDD (degenerative disc disease), lumbar 03/08/2014 Elevated prostate specific antigen (PSA) 09/15/2016 Esophageal reflux Fall at home 01/05/2018 Right Rib Fracture Hypertension Hypertrophy of prostate with urinary obstruction and other lower urinary tract symptoms (LUTS) 09/04/2008 With mild night-time symptoms, exam ok as of 09/2008 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 Related to sugar? -- see fasting glucose 2008; Impaired fasting glucose 10/11/2008 Under 110; See labs 10/12 INSOMNIA NOS 09/04/2008 Doing well with as-needed benzo at night Left bundle branch block 05/28/2010 Lumbago 02/23/2009 Lumbosacral spondylosis without myelopathy 08/07/2011 Lung disease [place] Fever Macular hole left eye Macular hole of left eye 06/19/2020 Mixed hyperlipidemia 10/05/2008 Neuropathy Nuclear sclerosis of right eye PE (pulmonary embolism) 09/04/2011 Peripheral vascular disease (HCC) Perirectal abscess 12/12/2008 Postconcussion syndrome 11/11/2011 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) 05/08/2014 Traumatic intracerebral hemorrhage (HCC) 09/26/2011 Ureterolithiasis 05/07/2011 Current Outpatient Medications Medication Sig oxyCODONE-acetaminophen (PERCOCET) 7.5-325 mg tablet Take 1 tablet by mouth every 6 hours as needed for pain for up to 7 days. famotidine (PEPCID) 40 mg tablet Take 1 tablet by mouth once daily as needed. LORazepam (ATIVAN) 2 mg tab Take 1 tablet by mouth at bedtime as needed (insomnia) for up to 180 days. warfarin (COUMADIN) 5 mg tablet As directed, currently taking as alternating every other day with taking 7.5 mg and 5 mg, plan for max dose of 10 mg per day at this time. NIFEdipine ER (PROCARDIA XL) 30 mg 24 hr tablet Take 1 tablet by mouth once daily. cloNIDine HCl (CATAPRES) 0.1 mg tablet Take 1-2 tablets by mouth three times a day as needed (for SBP greater than 150). olmesartan (BENICAR) 40 mg tablet Take 1 tablet by mouth once daily. rosuvastatin (CRESTOR) 40 mg tablet Take 1 tablet by mouth once daily. Olopatadine (PATADAY ONCE DAILY RELIEF) 0.2 % drop Use 1 Drop in both eyes once daily. pantoprazole DR (PROTONIX) 40 mg tablet take 1 tablet by mouth once daily ON AN EMPTY STOMACH 30 MINUTES PRIOR TO A MEAL potassium chloride (KLOR-CON 10) 10 mEq tablet Take 1 tablet by mouth two times a day. hydrocortisone 2.5 % cream Seldom vitamin B complex (B COMPLEX 1 ORAL) Take 1 tablet by mouth once daily. magnesium oxide 400 mg magnesium cap Take 1 capsule by mouth once daily. SAW PALMETTO ORAL Take 400 mg by mouth twice daily. coenzyme Q10 (COENZYME Q-10) 100 mg cap capsule Take 400 mg by mouth once daily. Cyanocobalamin 2,500 mcg subl Dissolve under the tongue twice daily. calcium, elemental, tab Take 600 mg by mouth twice daily. multivitamin (SOFYA MULTIVITAMIN) tablet Take 1 tablet by mouth once daily. No current facility-administered medications for this visit. ALLERGIES Allergen Reactions Cyclobenzaprine Other: See Comments Double vision Gabapentin Intolerance Keflex [Cephalexin] Rash PAST SURGICAL HISTORY Procedure Laterality Date CAROTID ENDARTERECTOMY Left 06/10/2019 Left CEA, bovine patch angioplasty COLONOSCOPY FLX DX W/COLLJ SPEC WHEN PFRMD 11/10/2008 COLONOSCOPY SCREENING 03/24/2022 COLONSCOPY W/DECOMPRESS 11/29/2018 EGD TRANSORAL BIOPSY SINGLE/MULTIPLE 11/10/2008 EXTRACTION, ERUPTED TOOTH OR EXPOSED ROOT (ELEVATION AND/OR FORCEPS REMOVAL) 1974 wisdom teeth F COLONOSCOPY WITH BIOPSY 11/29/2018 PAST SURGICAL HISTORY OF Left 1956 complex lac left hand, as a child PAST SURGICAL HISTORY OF 05/04/2013 Pars plana vitrectomy. REMV CATARACT EXTRACAP,INSERT LENS Left TRANSCATH RETRIEVAL,PERCUT 09/20/2012 IVC filter retrieval TRIESENCE INTRAVITREAL INJECTION OS (LEFT EYE) 10/25/2013 VENA CAVA FILTER 09/26/2011 later removed FAMILY HISTORY Problem Relation Age of Onset Hypertension Mother (longevity on mom's side) Cataract Mother Coronary Artery Disease Father father who of sudden cardiac arrest age 74 Heart Father heart stopped Blood Disease Brother pulmonary embolism history No Known Problems Maternal Grandmother No Known Problems Maternal Grandfather No Known Problems Paternal Grandmother Heart Paternal Grandfather Colon Cancer Other no close relatives known Prostate Cancer Other none Emphysema Other none Social History Tobacco Use Smoking status: Former Current packs/day: 0.00 Average packs/day: 1 pack/day for 20.0 years (20.0 ttl pk-yrs) Types: Cigarettes Start date: 04/06/1960 Quit date: 04/06/1980 Years since quittin.1 Smokeless tobacco: Never Vaping Use Vaping status: Never Used Substance Use Topics Alcohol use: Not Currently Comment: stopped 07/19/2022 Drug use: Yes Frequency: 7.0 times per week Types: Marijuana REVIEW OF SYSTEMS GENERAL: Negative for Malaise, significant weight loss, fever RESPIRATORY: Negative for cough, wheezing and shortness of breath CARDIOVASCULAR: Negative for chest pain, leg swelling and palpitations GI: Negative for abdominal discomfort, blood in stools or black stools and change in bowel habits : Negative for dysuria, frequency and incontinence MUSCULOSKELETAL: Negative for joint pain or swelling, back pain, and muscle pain. SKIN: Negative for lesions, rash, and itching. HEMATOLOGY/LYMPHOLOGY Negative for prolonged bleeding, bruising easily, and swollen nodes. ENDOCRINE: Negative for cold or heat intolerance, polyuria, polydipsia and goiter. NEURO: negative Physical Exam: Constitutional: Pt is a well developed 78 year old male who is alert, oriented and cooperative Eyes: Following during examination. No redness or drainage. Respiratory: RR normal and nonlabored. Even breathing. No evidence of distress or shortness of breath. Psychology: Patient is engaged during conversation. Normal affect and mood. Does not appear depressed or anxious during encounter. Vascular: Dorsalis pedis and posterior tibial pulses nonpalpable as b/l Capillary Fill time < 5 seconds to digits 1-5 b/l Skin temperature warm to cool proximal to distal b/l Hair growth present to digits Non-Invasive Vascular Laboratory [facility] Lower Extremity Arterial Physiology Study Bilateral/Complete Date of service/time: 07/08/2023 9:51:22 AM Name: MR. ALEX BROOKS Date of : 1945 Age: 77 years Gender: M Clinical Indication Pain in leg, numbness, peripheral vascular disease and aneurysm repair. TECHNIQUE -------- An arterial physiological examination was performed, including measurement of blood pressures using continuous wave Doppler and recording of plethysmographic with or without Doppler waveforms at the below-mentioned limb segments. FINDINGS -------- RIGHT SIDE AT REST Right Doppler Waveforms Dorsalis pedis: Monophasic. Post tibial: Multiphasic. Right Pressures Brachial: 135 mmHg High thigh: 168 mmHg Partially non-compressible arteries. Low thigh: 220 mmHg Partially non-compressible arteries. Calf: 255 mmHg Non-compressible arteries. Ankle dorsalis pedis: 162 mmHg NATI: 1.20 Partially non-compressible arteries. Ankle posterior tibial: 112 mmHg NATI: 0.83 Partially non-compressible arteries. Digit: 70 mmHg Right PVR Waveforms High thigh: Normal. Low thigh: Mildly dampened. Calf: Mildly dampened. Ankle: Mildly dampened. Transmetatarsal: Mildly dampened. Digit: Mildly dampened. LEFT SIDE AT REST Left Doppler Waveforms Dorsalis pedis: Monophasic. Post tibial: Monophasic. Left Pressures Brachial: 130 mmHg High thigh: 149 mmHg Partially non-compressible arteries. Low thigh: 156 mmHg Partially non-compressible arteries. Calf: 217 mmHg Partially non-compressible arteries. Ankle dorsalis pedis: 101 mmHg NATI: 0.75 Partially non-compressible arteries. Ankle posterior tibial: 122 mmHg NATI: 0.90 Partially non-compressible arteries. Digit: 43 mmHg Left PVR Waveforms High thigh: Normal. Low thigh: Mildly dampened. Calf: Moderately dampened. Ankle: Moderately dampened. Transmetatarsal: Moderately dampened. Digit: Mildly dampened. IMPRESSION Compared to prior study of 12/11/2022, No significant change. RIGHT SIDE Resting right ankle brachial index: 1.20 Partially non-compressible arteries, NATI not accurate. Right toe brachial index: 0.52 Non-compressible vessels, results called by PVR tracings. Abnormal toe brachial index at rest is evidence of peripheral artery disease. Right ankle: Mild disease at rest. Right superficial femoral disease. LEFT SIDE Resting left ankle brachial index: 0.90 Partially non-compressible arteries, NATI not accurate. Left toe brachial index: 0.32 Non-compressible vessels, results called by PVR tracings. Abnormal toe brachial index at rest is evidence of peripheral artery disease. Left ankle: Moderate disease at rest. Left superficial femoral disease. Technologist: Bhavna Buchanan RVT, [facility] [[email or web address]] Ordering physician: EDGAR LOAIZA Interpreting physician: Mark Do MD, [facility] Neurological: absent light touch/epicritic sensation Vibratory sensation absent b/l absent protective sensation + significant neurological deficits Dermatological: Nails 1-5 b/l appear thick, discolored, painful. Webspaces clean and dry 1-4 b/l. Skin appears well hydrated and supple. good color, texture, turgor. No open lesions present. No callus present Musculoskeletal/Orthopaedic: Patient has no pain to palpation of b/l feet Foot type is neutral structurally AJ ROM is full with knee extended and flexed 1st MPJ is decreased when loaded and no pain or crepitus are noted with ROM. Rigid hammertoes are present to lesser toes b/l and left hallux ipj MTJ, STJ are full and free of pain and crepitus. +5/5 muscle strength dorsiflexion, plantarflexion, inversion, eversion b/l Radiographs:n/a ASSESSMENT: (B35.1) Onychomycosis (primary encounter diagnosis) (M79.675) Pain in toe of left foot (M79.674) Pain in toe of right foot (I73.9) PAD (peripheral artery disease) ([facility]) (M20.40) Hammer toe, unspecified laterality PLAN: 1. History and physical examination performed. 2. Toenails 1-5 b/l debrided in length and thickness. Q8 modifier. 3. Discussed concern for rubbing of left hallux in shoes due to contracture. Gel toe cap dispensed. 4. F/u in 3 months or sooner if any problems arise. 3 month follow-up for nail care Gayle Green DPM Podiatry [address] [facility] [id number] Dept: [phone] Dept AMB ROOMING INTAKE FLOWSHEET DATA Pain Pain Location: Back-Lower Description: Aching, Pressure, Stiffness Duration Amount of Time: 24 Duration Units: Hours Frequency: Continuous Intervention/Comfort measure: Other: See comment Comments: I'm on Cumadin and can only take an opioid Percoset for pain. Tylenol and other opiods don't work. Because I'm concern with taking opiods, I'm in constant pain from my lower back. I believe the pain is caused by arthritis. Patient presents with: Left Foot - Numbness, nail care Right Foot - Numbness, nail care Ellen Coffman LPN documented in this encounter [facility] 05-18-2024 Telephone encounter Note Pt called and is notified of providers results and instructions. Pt voices understanding. Updated Anticoag tracker. Cyndy Whelan RN [facility] 05-18-2024 Miscellaneous Notes Pt called and is notified of providers results and instructions. Pt voices understanding. Updated Anticoag tracker. Cyndy Whelan RN No change Recheck in 2 weeks to verify stable on same dose as usual after the 10 mg dose given 05/10 Last INR: INR Home CoaguChek 2.2 05/18/2024 Current dose of coumadin is: 5 mg and 7.5 alternating daily. Patient took 10 mg per instructions on 05/10/2024 Last date of dose change: Unknown. Previous INR (date and result): 05/10/2024 1.6 Additional Clinical Information or narrative: Did Have wine 4 days before INR testing No antibiotics. No changes in Diet No bruising or bleeding noted Asking if he should take 10 mg one time a week and then alternating between the 5 and 7.5 mg. Patient already scheduled in 2 weeks for next INR testing. documented in this encounter [facility] 05-18-2024 Telephone encounter Note No change Recheck in 2 weeks to verify stable on same dose as usual after the 10 mg dose given 05/10 [facility] 05-18-2024 Telephone encounter Note Last INR: INR Home CoaguChek 2.2 05/18/2024 Current dose of coumadin is: 5 mg and 7.5 alternating daily. Patient took 10 mg per instructions on 05/10/2024 Last date of dose change: Unknown. Previous INR (date and result): 05/10/2024 1.6 Additional Clinical Information or narrative: Did Have wine 4 days before INR testing No antibiotics. No changes in Diet No bruising or bleeding noted Asking if he should take 10 mg one time a week and then alternating between the 5 and 7.5 mg. Patient already scheduled in 2 weeks for next INR testing. [facility] 05-17-2024 History of Presen t illness Narrative Chief Complaint Patient presents with: F/U 3 Month HPI Alex Brooks is a 78 year old male who presents here today for Above Complaints. Requesting refill on his chronic Percocet rx as initiated by Dr. Ewdards. Uses for his chronic low back pain and neck pain. Tylenol doesn't work. Only thing he can actually take because he's on Coumadin. His last rx has lasted him 3 months. It does work when he needs to take it. Denies any side effects, no lethargy. Exertional SOB-lives in 1 bedroom apartment and can't walk from one end to the other. PCP Zeny Lam CNP has done very thorough workup. Past medical history, appointments, medications, allergies reviewed. Previous Medical History PAST MEDICAL HISTORY Diagnosis Date Asthma as a teenager Benign prostatic hyperplasia with nocturia Bilateral carotid artery stenosis 02/14/2019 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 Carotid stenosis, left 02/21/2019 s/p CEA Closed nondisplaced fracture of distal phalanx of right great toe 01/16/2021 Colonic polyp 11/29/2018 DDD (degenerative disc disease), lumbar 03/08/2014 Elevated prostate specific antigen (PSA) 09/15/2016 Esophageal reflux Fall at home 01/05/2018 Right Rib Fracture Hypertension Hypertrophy of prostate with urinary obstruction and other lower urinary tract symptoms (LUTS) 09/04/2008 With mild night-time symptoms, exam ok as of 09/2008 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 Related to sugar? -- see fasting glucose 2008; Impaired fasting glucose 10/11/2008 Under 110; See labs 10/12 INSOMNIA NOS 09/04/2008 Doing well with as-needed benzo at night Left bundle branch block 05/28/2010 Lumbago 02/23/2009 Lumbosacral spondylosis without myelopathy 08/07/2011 Lung disease [place] Fever Macular hole left eye Macular hole of left eye 06/19/2020 Mixed hyperlipidemia 10/05/2008 Neuropathy Nuclear sclerosis of right eye PE (pulmonary embolism) 09/04/2011 Peripheral vascular disease (HCC) Perirectal abscess 12/12/2008 Postconcussion syndrome 11/11/2011 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) 05/08/2014 Traumatic intracerebral hemorrhage (HCC) 09/26/2011 Ureterolithiasis 05/07/2011 Previous Surgical History PAST SURGICAL HISTORY Procedure Laterality Date CAROTID ENDARTERECTOMY Left 06/10/2019 Left CEA, bovine patch angioplasty COLONOSCOPY FLX DX W/COLLJ SPEC WHEN PFRMD 11/10/2008 COLONOSCOPY SCREENING 03/24/2022 COLONSCOPY W/DECOMPRESS 11/29/2018 EGD TRANSORAL BIOPSY SINGLE/MULTIPLE 11/10/2008 EXTRACTION, ERUPTED TOOTH OR EXPOSED ROOT (ELEVATION AND/OR FORCEPS REMOVAL) 1974 wisdom teeth F COLONOSCOPY WITH BIOPSY 11/29/2018 PAST SURGICAL HISTORY OF Left 1956 complex lac left hand, as a child PAST SURGICAL HISTORY OF 05/04/2013 Pars plana vitrectomy. REMV CATARACT EXTRACAP,INSERT LENS Left TRANSCATH RETRIEVAL,PERCUT 09/20/2012 IVC filter retrieval TRIESENCE INTRAVITREAL INJECTION OS (LEFT EYE) 10/25/2013 VENA CAVA FILTER 09/26/2011 later removed Family History FAMILY HISTORY Problem Relation Age of Onset Hypertension Mother (longevity on mom's side) Cataract Mother Coronary Artery Disease Father father who of sudden cardiac arrest age 74 Heart Father heart stopped Blood Disease Brother pulmonary embolism history No Known Problems Maternal Grandmother No Known Problems Maternal Grandfather No Known Problems Paternal Grandmother Heart Paternal Grandfather Colon Cancer Other no close relatives known Prostate Cancer Other none Emphysema Other none Patient Allergies ALLERGIES Allergen Reactions Cyclobenzaprine Other: See Comments Double vision Gabapentin Intolerance Keflex [Cephalexin] Rash Current Medications Current Outpatient Medications on File Prior to Visit Medication Sig famotidine (PEPCID) 40 mg tablet Take 1 tablet by mouth once daily as needed. LORazepam (ATIVAN) 2 mg tab Take 1 tablet by mouth at bedtime as needed (insomnia) for up to 180 days. warfarin (COUMADIN) 5 mg tablet As directed, currently taking as alternating every other day with taking 7.5 mg and 5 mg, plan for max dose of 10 mg per day at this time. NIFEdipine ER (PROCARDIA XL) 30 mg 24 hr tablet Take 1 tablet by mouth once daily. cloNIDine HCl (CATAPRES) 0.1 mg tablet Take 1-2 tablets by mouth three times a day as needed (for SBP greater than 150). olmesartan (BENICAR) 40 mg tablet Take 1 tablet by mouth once daily. rosuvastatin (CRESTOR) 40 mg tablet Take 1 tablet by mouth once daily. Olopatadine (PATADAY ONCE DAILY RELIEF) 0.2 % drop Use 1 Drop in both eyes once daily. pantoprazole DR (PROTONIX) 40 mg tablet take 1 tablet by mouth once daily ON AN EMPTY STOMACH 30 MINUTES PRIOR TO A MEAL potassium chloride (KLOR-CON 10) 10 mEq tablet Take 1 tablet by mouth two times a day. hydrocortisone 2.5 % cream Seldom vitamin B complex (B COMPLEX 1 ORAL) Take 1 tablet by mouth once daily. magnesium oxide 400 mg magnesium cap Take 1 capsule by mouth once daily. SAW PALMETTO ORAL Take 400 mg by mouth twice daily. coenzyme Q10 (COENZYME Q-10) 100 mg cap capsule Take 400 mg by mouth once daily. Cyanocobalamin 2,500 mcg subl Dissolve under the tongue twice daily. calcium, elemental, tab Take 600 mg by mouth twice daily. multivitamin (SOFYA MULTIVITAMIN) tablet Take 1 tablet by mouth once daily. oxyCODONE-acetaminophen (PERCOCET) 7.5-325 mg tablet Take 1 tablet by mouth every 6 hours as needed for pain for up to 7 days. No current facility-administered medications on file prior to visit. Social History Social History Tobacco Use Smoking status: Former Current packs/day: 0.00 Average packs/day: 1 pack/day for 20.0 years (20.0 ttl pk-yrs) Types: Cigarettes Start date: 04/06/1960 Quit date: 04/06/1980 Years since quittin.1 Smokeless tobacco: Never Vaping Use Vaping status: Never Used Substance Use Topics Alcohol use: Not Currently Comment: stopped 07/19/2022 Drug use: Yes Frequency: 7.0 times per week Types: Marijuana Review of Symptoms REVIEW OF SYSTEMS See HPI, otherwise negative EXAM: BP 110/72 (BP Site: Left Arm, BP Position: Sitting, BP Cuff Size: Regular Adult) Pulse 75 Wt 88.9 kg (196 lb) SpO2 96% BMI 25.86 kg/m General Appearance: Well appearing, alert, in no acute distress, well-hydrated, well nourished.. Lungs: Lungs clear to auscultation. No wheezing, rhonchi, rales.. Heart: RRR without murmur, gallop, or rubs. No ectopy. Psychiatric: pleasant, cooeprative. Health Maintenance List Covid-19 Vaccine() due on 02/04/2024 Advance Directive Discussion due on 04/06/2024 Depression Screening due on 01/05/2025 Anxiety Screening due on 01/05/2025 Annual PCP Team Chronic Disease Visit due on 05/17/2025 BP Controlled (<130/80) due on 05/17/2025 Diabetes Screening due on 02/08/2027 DTaP,Tdap,Td Vaccine(3 - Td or Tdap) due on 01/10/2031 Influenza Vaccine Completed RSV Vaccine Completed Pneumococcal Vaccine: 50+ Completed Colorectal Cancer Screening Discontinued Shingrix Vaccine Discontinued Data reviewed Previous records, office notes, PDMP records PDMP website checked and validated. All prescriptions have been APPROPRIATELY filled. No suspicious activity was identified. 05/17/2024 by Teri Gruber CNP. ASSESSMENT/PLAN: 1. Shortness of breath - ICD9: 786.05, ICD10: R06.02 (primary diagnosis) chronic - NM CARDIAC PERF STRESS/PHARM - REGADENOSON 0.4 MG/5 ML INTRAVENOUS SYRINGE - AMINOPHYLLINE 250 MG/10 ML INTRAVENOUS SOLUTION - METOPROLOL TARTRATE 5 MG/5 ML INTRAVENOUS SOLUTION 2. Chronic low back pain without sciatica, unspecified back pain laterality - ICD9: 724.2, 338.29, ICD10: M54.50, G89.29 - OXYCODONE-ACETAMINOPHEN 7.5 MG-325 MG TABLET 3. Neck pain - ICD9: 723.1, ICD10: M54.2 - OXYCODONE-ACETAMINOPHEN 7.5 MG-325 MG TABLET Teri Gruber APRN.DELIVERY CLERK documented in this encounter [facility] 05-11-2024 Telephone encounter Note Patient calls back and states that he talked to [facility] and patient is eligible for Covid Vaccine. Patient report that he has appointment at [facility] to get vaccine. Provider does not have to advise on this anymore. Tammie Munguia RN [facility] 05-11-2024 Miscellaneous Notes Patient calls back and states that he talked to [facility] and patient is eligible for Covid Vaccine. Patient report that he has appointment at [facility] to get vaccine. Provider does not have to advise on this anymore. Tammie Munguia RN Pt called to see if he is due for a COVID vaccine. Please advise pt. Maribel Oden LPN documented in this encounter [facility] 05-11-2024 Telephone encounter Note Pt called to see if he is due for a COVID vaccine. Please advise pt. Maribel Oden LPN [facility] 05-10-2024 Telephone encounter Note Patient notified of providers message and verbalized understanding. [facility] 05-10-2024 Miscellaneous Notes Patient notified of providers message and verbalized understanding. He can take coumadin 10 mg today then resume usual dosing. Spoke with patient. Patient is concerned about instructions. Patient is scheduled to take 7.5 mg tonight so schedule is not changing and believes 1.6 is too low for him, believe there should be a change. Please advise Recommend Coumadin 7.5 mg today then resume usual schedule with alternating doses 7.5 mg and 5 mg every other day,check INR in 1 week. Latest Ref Rng 03/24/2024 04/12/2024 04/27/2024 05/10/2024 PT Sec <13.1 sec 21.5 (H) 24.2 (H) 22.4 (H) 16.2 (H) PT INR 0.9 - 1.3 2.2 (H) 2.4 (H) 2.3 (H) 1.6 (H) Legend: (H) High Last INR: INR Home CoaguChek 1.6 05/10/2024 Current dose of coumadin is: 7.5 mg alternating daily with 5 mg. Last date of dose change: Unknown. Previous INR (date and result): 04/27/2024 2.3 Additional Clinical Information or narrative: Nothing has changed with diet No alcohol No missed doses No bleeding or bruising Patient states that he knows provider is going to have him schedule next INR in a week. Patient is scheduled for 05/18/2024. documented in this encounter [facility] 05-10-2024 Telephone encounter Note He can take coumadin 10 mg today then resume usual dosing. [facility] Work Phone: 05-10-2024 Telephone encounter Note Spoke with patient. Patient is concerned about instructions. Patient is scheduled to take 7.5 mg tonight so schedule is not changing and believes 1.6 is too low for him, believe there should be a change. Please advise [facility] 05-10-2024 Telephone encounter Note Recommend Coumadin 7.5 mg today then resume usual schedule with alternating doses 7.5 mg and 5 mg every other day,check INR in 1 week. Latest Ref Rng 03/24/2024 04/12/2024 04/27/2024 05/10/2024 PT Sec <13.1 sec 21.5 (H) 24.2 (H) 22.4 (H) 16.2 (H) PT INR 0.9 - 1.3 2.2 (H) 2.4 (H) 2.3 (H) 1.6 (H) Legend: (H) High [facility] 05-10-2024 Telephone encounter Note Last INR: INR Home CoaguChek 1.6 05/10/2024 Current dose of coumadin is: 7.5 mg alternating daily with 5 mg. Last date of dose change: Unknown. Previous INR (date and result): 04/27/2024 2.3 Additional Clinical Information or narrative: Nothing has changed with diet No alcohol No missed doses No bleeding or bruising Patient states that he knows provider is going to have him schedule next INR in a week. Patient is scheduled for 05/18/2024. [facility] 04-27-2024 Telephone encounter Note Noted. Agree with current dose and repeat in 2 weeks Regards, Sherry Rodrigues MD [facility] Work Phone: 04-27-2024 Miscellaneous Notes Noted. Agree with current dose and repeat in 2 weeks Regards, Sherry Rodrigues MD Pt calling in to report his INR. Pt states he will plan on no changes and repeat INR in 2 weeks. Pt requested to be scheduled. Appt 05/11/24 at 1115 am per his request. *No need to call pt back unless any changes. Pt also aware of his Magnesium lab result and no need to call him back with this result unless any changes. Pt is currently not taking any Magnesium. * Last INR: INR Home CoaguChek 2.3 04/27/2024 Current dose of coumadin is: Alternating days of 7.5 mg/5 mg. Last date of dose change: unknown. Previous INR (date and result): 04/12/24 2.4 Additional Clinical Information or narrative: no documented in this encounter [facility] 04-27-2024 Telephone encounter Note Pt calling in to report his INR. Pt states he will plan on no changes and repeat INR in 2 weeks. Pt requested to be scheduled. Appt 05/11/24 at 1115 am per his request. *No need to call pt back unless any changes. Pt also aware of his Magnesium lab result and no need to call him back with this result unless any changes. Pt is currently not taking any Magnesium. * Last INR: INR Home CoaguChek 2.3 04/27/2024 Current dose of coumadin is: Alternating days of 7.5 mg/5 mg. Last date of dose change: unknown. Previous INR (date and result): 04/12/24 2.4 Additional Clinical Information or narrative: no [facility] 04-12-2024 Telephone encounter Note ok [facility] 04-12-2024 Miscellaneous Notes ok PATIENT NOTIFIED OF SAME. Patient stopped OTC magnesium about 2-3 weeks ago. It was suggested to stopped it due to symptoms of diarrhea. Within 2 days of stopping diarrhea improved. Would like a magnesium level check at next INR drawn. Continue with Coumadin dose unchanged check INR in 2 weeks Last INR: INR Home CoaguChek 2.4 04/12/2024 Current dose of coumadin is: 7.5 mg alternating with 5 mg . Last date of dose change: Not Recent. Previous INR (date and result): 03/24/2024 2.2 Additional Clinical Information or narrative: Patient states that he accidentally took 7.5 mg 2 days in a row. Patient reports no changes in diet or medications. Patient has not drank any alcohol. No signs or symptoms of bruising or bleeding. Patient already made his appointment for INR in 2 weeks. documented in this encounter [facility] 04-12-2024 Telephone encounter Note PATIENT NOTIFIED OF SAME. Patient stopped OTC magnesium about 2-3 weeks ago. It was suggested to stopped it due to symptoms of diarrhea. Within 2 days of stopping diarrhea improved. Would like a magnesium level check at next INR drawn. [facility] 04-12-2024 Telephone encounter Note Continue with Coumadin dose unchanged check INR in 2 weeks [facility] 04-12-2024 Telephone encounter Note Last INR: INR Home CoaguChek 2.4 04/12/2024 Current dose of coumadin is: 7.5 mg alternating with 5 mg . Last date of dose change: Not Recent. Previous INR (date and result): 03/24/2024 2.2 Additional Clinical Information or narrative: Patient states that he accidentally took 7.5 mg 2 days in a row. Patient reports no changes in diet or medications. Patient has not drank any alcohol. No signs or symptoms of bruising or bleeding. Patient already made his appointment for INR in 2 weeks. [facility] 03-25-2024 Telephone encounter Note Patient calling with medication related question. Information reviewed. Graciela Parker RN [facility] 03-25-2024 Miscellaneous Notes Patient calling with medication related question. Information reviewed. Graciela Parker RN documented in this encounter [facility] 03-25-2024 Miscellaneous Notes Letter ready to be mailed, patient aware. Osei Maciel LPN Letter printed and at nurse pod for signature. Print parking placard letter for me--cannot change from Zeny Lam on the letterhead. For cannot walk without stopping to rest and condition orthopedic. Permanent for 10 years Patient calls back and is asking if handicap placard paper work can be mailed out to him. Address verified. Patient states that he has a hard time walking distances. Tammie Munguia RN Patient called requesting paper work for the renewal of the disability placard Please advise documented in this encounter [facility] 03-25-2024 Telephone encounter Note Letter ready to be mailed, patient aware. Osei Maciel LPN [facility] 03-25-2024 Telephone encounter Note Letter printed and at nurse pod for signature. [facility] 03-24-2024 Telephone encounter Note Print parking placard letter for me--cannot change from Zeny Lam on the letterhead. For cannot walk without stopping to rest and condition orthopedic. Permanent for 10 years [facility] 03-24-2024 Telephone encounter Note Patient returned call and went over notes below from Rajan Sharif GRAIN SACKER with understanding. [facility] 03-24-2024 Miscellaneous Notes Patient returned call and went over notes below from Rajan Sharif GRAIN SACKER with understanding. Called and left a voicemail for the patient to call back and ask for a nurse to receive the providers message. Both olmesartan and nifedipine have low incidence of diarrhea (1-3%). I recommend try reducing his supplemental OTC magnesium to see if this helps. He should note improvement in a few days. If not I would recommend a visit to check diarrhea and BP and make medication adjustments if needed. Spoke with patient but he states the medication was referring to was the Nifedipine and the Olmesartan. He also states that the magnesium has not been increased, he is currently taking the 400 mg 2 tabs every other day and 1 tab every other day and there has been no other changes. Has been taking Blood pressure today was 116/67 and pulse 64. This is not a listed side effect of clonidine. Did anything else change in that time period? Has he increased his use of magnesium? Patient calls and states that he has had diarrhea x 4 weeks. Patient states that it coincides when he was put on new blood pressure medication. Patient asking if these medications could be causing this? Patient states that he takes imodium AD and it work for about a half of a day and then it goes back to diarrhea. Patient asking if Dr. Talampas can advise on this. Please review and advise, Tammie Munguia RN documented in this encounter [facility] 03-24-2024 Telephone encounter Note Called and left a voicemail for the patient to call back and ask for a nurse to receive the providers message. [facility] 03-24-2024 Telephone encounter Note Both olmesartan and nifedipine have low incidence of diarrhea (1-3%). I recommend try reducing his supplemental OTC magnesium to see if this helps. He should note improvement in a few days. If not I would recommend a visit to check diarrhea and BP and make medication adjustments if needed. [facility] Work Phone: 03-24-2024 Telephone encounter Note Spoke with patient but he states the medication was referring to was the Nifedipine and the Olmesartan. He also states that the magnesium has not been increased, he is currently taking the 400 mg 2 tabs every other day and 1 tab every other day and there has been no other changes. Has been taking Blood pressure today was 116/67 and pulse 64. [facility] 03-24-2024 Telephone encounter Note This is not a listed side effect of clonidine. Did anything else change in that time period? Has he increased his use of magnesium? [facility] 03-24-2024 Telephone encounter Note Patient notified of providers message and verbalized understanding. [facility] 03-24-2024 Miscellaneous Notes Patient notified of providers message and verbalized understanding. This was sent to me from Sara. May continue on with Coumadin dose unchanged and check INR in 2 weeks Last INR: INR Home CoaguChek 2.2 03/24/2024 Current dose of coumadin is: 7.5 mg alternating with 5 mg . Last date of dose change: not recent . Previous INR (date and result): 2.5 on 03/10/2024 Additional Clinical Information or narrative: no change in diet, no antibiotics, no missed doses, no bleeding issues, no alcohol . Next INR lab scheduled for 04/08/2024. Patient requesting note to be sent to Sara to review. documented in this encounter [facility] 03-24-2024 Telephone encounter Note This was sent to me from Sara. May continue on with Coumadin dose unchanged and check INR in 2 weeks [facility] Work Phone: 03-24-2024 Telephone encounter Note Last INR: INR Home CoaguChek 2.2 03/24/2024 Current dose of coumadin is: 7.5 mg alternating with 5 mg . Last date of dose change: not recent . Previous INR (date and result): 2.5 on 03/10/2024 Additional Clinical Information or narrative: no change in diet, no antibiotics, no missed doses, no bleeding issues, no alcohol . Next INR lab scheduled for 04/08/2024. Patient requesting note to be sent to Sara to review. [facility] 03-24-2024 Telephone encounter Note Patient is at [facility] to get INR draw but order on file . Please file pended order. Lab does not need notified. Mirlande Maria MA [facility] 03-24-2024 Miscellaneous Notes Patient is at [facility] to get INR draw but order on file . Please file pended order. Lab does not need notified. Mirlande Maria MA documented in this encounter [facility] 03-23-2024 Telephone encounter Note Patient calls back and is asking if handicap placard paper work can be mailed out to him. Address verified. Patient states that he has a hard time walking distances. Tammie Munguia RN [facility] 03-22-2024 Telephone encounter Note Patient called requesting paper work for the renewal of the disability placard Please advise [facility] Work Phone: 03-22-2024 Telephone encounter Note Patient calls and states that he has had diarrhea x 4 weeks. Patient states that it coincides when he was put on new blood pressure medication. Patient asking if these medications could be causing this? Patient states that he takes imodium AD and it work for about a half of a day and then it goes back to diarrhea. Patient asking if Dr. Edwards can advise on this. Please review and advise, Tammie Munguia RN [facility] 03-16-2024 Telephone encounter Note Patient has been identified by name and date of : Yes Patient phones for refill(s): Requested Prescriptions Pending Prescriptions Disp Refills famotidine (PEPCID) 40 mg tablet 90 tablet 1 Sig: Take 1 tablet by mouth once daily as needed. Date of last office visit in primary care: 02/15/2024 Date of next office visit in primary care: 08/15/2024 Please advise. Thank you. Kari Briones LPN. [facility] 03-16-2024 Miscellaneous Notes Patient has been identified by name and date of : Yes Patient phones for refill(s): Requested Prescriptions Pending Prescriptions Disp Refills famotidine (PEPCID) 40 mg tablet 90 tablet 1 Sig: Take 1 tablet by mouth once daily as needed. Date of last office visit in primary care: 02/15/2024 Date of next office visit in primary care: 08/15/2024 Please advise. Thank you. Kari Briones LPN. documented in this encounter [facility] 03-11-2024 Telephone encounter Note Patient notified of results and provider's instructions. Patient verbalizes understanding. Tammie Munguia RN [facility] 03-11-2024 Miscellaneous Notes Patient notified of results and provider's instructions. Patient verbalizes understanding. Tammie Munguia RN If inr range is 2-3 then she is in therapeutic range and should continue current dose. Ok to recheck in 2 weeks as already scheduled. Thank you Arti Baxter APRN.DELIVERY CLERK Last INR: INR Home CoaguChek 2.5 03/10/2024 Current dose of coumadin is: 7.5 mg alternating with 5 mg every other day . Last date of dose change: Unknown. Previous INR (date and result): 2.9 02/25/2024 Additional Clinical Information or narrative: Patient has had no missed doses, no change in diet. Patient has had no alcohol. Patient has not bruising or bleeding. Patient made appointment to recheck INR in 2 weeks. documented in this encounter [facility] 03-11-2024 Telephone encounter Note If inr range is 2-3 then she is in therapeutic range and should continue current dose. Ok to recheck in 2 weeks as already scheduled. Thank you Arti Baxter APRN.KAYLA [facility] Work Phone: 03-10-2024 Telephone encounter Note Last INR: INR Home CoaguChek 2.5 03/10/2024 Current dose of coumadin is: 7.5 mg alternating with 5 mg every other day . Last date of dose change: Unknown. Previous INR (date and result): 2.9 02/25/2024 Additional Clinical Information or narrative: Patient has had no missed doses, no change in diet. Patient has had no alcohol. Patient has not bruising or bleeding. Patient made appointment to recheck INR in 2 weeks. [facility] 03-09-2024 Telephone encounter Note The following approved medication requests have been transmitted electronically. Requested Prescriptions Signed Prescriptions Disp Refills LORazepam (ATIVAN) 2 mg tab 90 tablet 1 Sig: Take 1 tablet by mouth at bedtime as needed (insomnia) for up to 180 days. Authorizing Provider: MANI EDWARDS MD [facility] 03-09-2024 Miscellaneous Notes The following approved medication requests have been transmitted electronically. Requested Prescriptions Signed Prescriptions Disp Refills LORazepam (ATIVAN) 2 mg tab 90 tablet 1 Sig: Take 1 tablet by mouth at bedtime as needed (insomnia) for up to 180 days. Authorizing Provider: MANI EDWARDS MD Prescription Refill Information The patient has been identified by name and date of : Yes Caregiver verified no other encounters exist for this prescription request: Yes Caregiver confirmed with patient/requestor that no other refills are due, in the near future, with this provider at this time: Yes The last office visit in the department: 02/15/24 Does the patient have a future office visit with this provider/department: Yes 05/17/24 Requested Prescriptions Pending Prescriptions Disp Refills LORazepam (ATIVAN) 2 mg tab 90 tablet 1 Sig: Take 1 tablet by mouth at bedtime as needed (insomnia) for up to 180 days. Gabby Rm LPN March 08, 2024 10:32 AM documented in this encounter [facility] 03-08-2024 Telephone encounter Note Prescription Refill Information The patient has been identified by name and date of : Yes Caregiver verified no other encounters exist for this prescription request: Yes Caregiver confirmed with patient/requestor that no other refills are due, in the near future, with this provider at this time: Yes The last office visit in the department: 02/15/24 Does the patient have a future office visit with this provider/department: Yes 05/17/24 Requested Prescriptions Pending Prescriptions Disp Refills LORazepam (ATIVAN) 2 mg tab 90 tablet 1 Sig: Take 1 tablet by mouth at bedtime as needed (insomnia) for up to 180 days. Gabby Rm LPN March 08, 2024 10:32 AM [facility] 02-29-2024 History of Presen t illness Narrative Radiology Service Progress Note PATIENT NAME: Alex Brooks DATE OF SERVICE: February 29, 2024 TIME: 12:06 PM PATIENT IDENTITY VERIFICATION COMPLETED USING TWO (2) IDENTIFIERS: Name and Date of confirmed by patient verbally. FALL SCREENING: Has the patient had 2 falls in the last year or 1 fall with injury or currently using an Ambulatory Assistive Device (Walker, Cane, Wheelchair, Crutches, etc.)? No PATIENT GENDER DATA: Male PATIENT RELEVANT IMPLANT DATA REVIEWED: Yes PATIENT PRESENTS WITH AN IMPLANTABLE OR ATTACHED REGULATORY TECHNICIAN: No RADIOLOGY DEPARTMENT: CT; Exam(s) Completed: Brain PERIPHERAL IV DATA: Not applicable SIGNED BY: RT Poli(R) February 29, 2024 12:06 PM documented in this encounter [facility] 02-25-2024 Telephone encounter Note Patient returns call to let office know that he received the message. Antoinette Meadows RN [facility] 02-25-2024 Miscellaneous Notes Patient returns call to let office know that he received the message. Antoinette Meadows RN Placed call to patient with no answer. Left VM with detailed instruction to continue same dose of coumadin and recheck inr in two weeks. Advised patient to call back and let us know he received the message. Ludmila Carson MA Same dose. Recheck in two weeks Last INR: INR Home CoaguChek 2.9 02/25/2024 Current dose of coumadin is: 7.5 mg alternating with 5 mg every other day. Last date of dose change: unknown. Previous INR (date and result): 02/08 2.5 Additional Clinical Information or narrative: no changes or problems documented in this encounter [facility] 02-25-2024 Telephone encounter Note Placed call to patient with no answer. Left VM with detailed instruction to continue same dose of coumadin and recheck inr in two weeks. Advised patient to call back and let us know he received the message. Ludmila Carson MA [facility] 02-25-2024 Telephone encounter Note Same dose. Recheck in two weeks [facility] Work Phone: 02-25-2024 Telephone encounter Note Last INR: INR Home CoaguChek 2.9 02/25/2024 Current dose of coumadin is: 7.5 mg alternating with 5 mg every other day. Last date of dose change: unknown. Previous INR (date and result): 02/08 2.5 Additional Clinical Information or narrative: no changes or problems [facility] 02-15-2024 Telephone encounter Note [facility] calling to request clarification on Warfarin script. Pharmacist says they need to know maximum dose per day to know how long 240 tablets should last. Please review and advise. MORIAH Leiva RN [facility] 02-15-2024 Miscellaneous Notes [facility] calling to request clarification on Warfarin script. Pharmacist says they need to know maximum dose per day to know how long 240 tablets should last. Please review and advise. MORIAH Leiva RN documented in this encounter [facility] 02-15-2024 History of Presen t illness Narrative SUBJECTIVE Alex Brooks is a 78 year old male here today for a check up on his medical problems. Chief Complaint Patient presents with: Recheck HPI Alex Brooks is a 78 year old male. He is an established patient. Here today for follow up. Recently he has had some issues with hypertension. Today blood pressure seems much better. Has not needed the clonidine recently. He continues to use percocet as needed for pain, tries to use this sparingly, he has had some increased neck pain lately. Xray noted degenerative changes. He notes still having an intermittent whooshing sound in the head. Seems to be more occurring with the blood pressure. Has some constant buzzing. Wondering about getting a head CT checked. His medications were reviewed today and his list is now up to date. Medications Current Outpatient Medications Medication Sig rosuvastatin (CRESTOR) 40 mg tablet Take 1 tablet by mouth once daily. LORazepam (ATIVAN) 2 mg tab Take 1 tablet by mouth at bedtime as needed (insomnia) for up to 180 days. famotidine (PEPCID) 40 mg tablet Take 1 tablet by mouth once daily as needed. Olopatadine (PATADAY ONCE DAILY RELIEF) 0.2 % drop Use 1 Drop in both eyes once daily. pantoprazole DR (PROTONIX) 40 mg tablet take 1 tablet by mouth once daily ON AN EMPTY STOMACH 30 MINUTES PRIOR TO A MEAL potassium chloride (KLOR-CON 10) 10 mEq tablet Take 1 tablet by mouth two times a day. hydrocortisone 2.5 % cream Seldom vitamin B complex (B COMPLEX 1 ORAL) Take 1 tablet by mouth once daily. magnesium oxide 400 mg magnesium cap Take 1 capsule by mouth once daily. (Patient taking differently: Take 500 mg by mouth two times a day. 500mg daily) EMANUEL PALMVALENTINAO ORAL Take 400 mg by mouth twice daily. coenzyme Q10 (COENZYME Q-10) 100 mg cap capsule Take 400 mg by mouth once daily. Cyanocobalamin 2,500 mcg subl Dissolve under the tongue twice daily. calcium, elemental, tab Take 600 mg by mouth twice daily. multivitamin (SOFYA MULTIVITAMIN) tablet Take 1 tablet by mouth once daily. oxyCODONE-acetaminophen (PERCOCET) 7.5-325 mg tablet Take 1 tablet by mouth every 6 hours as needed for pain for up to 7 days. warfarin (COUMADIN) 5 mg tablet As directed NIFEdipine ER (PROCARDIA XL) 30 mg 24 hr tablet Take 1 tablet by mouth once daily. cloNIDine HCl (CATAPRES) 0.1 mg tablet Take 1-2 tablets by mouth three times a day as needed (for SBP greater than 150). olmesartan (BENICAR) 40 mg tablet Take 1 tablet by mouth once daily. No current facility-administered medications for this visit. ALLERGIES Allergen Reactions Cyclobenzaprine Other: See Comments Double vision Gabapentin Intolerance Keflex [Cephalexin] Rash ACTIVE PROBLEM LIST Compression Fracture of L1 Lumbar Vertebra ([facility]) - 07/15/2023 Sciatic Leg Pain - 07/15/2023 Bilateral Carotid Artery Stenosis - 06/15/2023 Acute Gastritis Without Hemorrhage - 04/20/2023 Spinal Stenosis of Lumbar Region - 09/24/2022 Pad (Peripheral Artery Disease) ([facility]) - 08/16/2021 Kidney Insufficiency - 04/04/2021 Posterior Vitreous Detachment of Right Eye - 06/19/2020 Age-Related Nuclear Cataract of Right Eye - 06/19/2020 Balance Problem - 03/12/2020 History of Left-Sided Carotid Endarterectomy - 06/10/2019 Colonic Polyp - 11/29/2018 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 Hypercoag studies all have been neg as of 05/2014. Bro w/hypercoag W/U previously as well. Gerd (Gastroesophageal Reflux Disease) - 02/17/2014 Htn (Hypertension) - 07/02/2009 Comment: 03/24/2023: Home BP Cuff Validated. Home BP: 114/71 93 Office BP: 100/56 96 Lumbago - 02/23/2009 Impaired Fasting Glucose - 10/11/2008 Comment: Under 110; See labs 10/12 Hereditary and Idiopathic Peripheral Neuropathy - 10/05/2008 Mixed Hyperlipidemia - 10/05/2008 Benign Prostatic Hyperplasia With Nocturia - 09/04/2008 Insomnia, unspecified - 09/04/2008 Social History Tobacco Use Smoking status: Former Current packs/day: 0.00 Average packs/day: 1 pack/day for 20.0 years (20.0 ttl pk-yrs) Types: Cigarettes Start date: 04/06/1960 Quit date: 04/06/1980 Years since quittin.8 Smokeless tobacco: Never Vaping Use Vaping status: Never Used Substance Use Topics Alcohol use: Not Currently Comment: stopped 07/19/2022 Drug use: Yes Frequency: 7.0 times per week Types: Marijuana Review of Systems Respiratory: Negative. Cardiovascular: Negative. Neurological: Positive for dizziness. OBJECTIVE BP 110/80 Pulse 85 Wt 189 lb 13.1 oz (86.1kg) SpO2 96% Physical Exam Vitals and nursing note reviewed. Constitutional: General: He is awake. He is not in acute distress. Appearance: Normal appearance. He is well-developed and well-groomed. He is not ill-appearing, toxic-appearing or diaphoretic. HENT: Head: Normocephalic. Right Ear: Hearing, tympanic membrane, ear canal and external ear normal. Left Ear: Hearing, tympanic membrane, ear canal and external ear normal. Nose: Nose normal. Eyes: General: Vision grossly intact. Extraocular Movements: Extraocular movements intact. Conjunctiva/sclera: Conjunctivae normal. Pupils: Pupils are equal, round, and reactive to light. Neck: Vascular: No JVD. Trachea: Trachea normal. Cardiovascular: Rate and Rhythm: Normal rate and regular rhythm. Pulses: Normal pulses. Heart sounds: Normal heart sounds. No murmur heard. Pulmonary: Effort: Pulmonary effort is normal. No accessory muscle usage, prolonged expiration or respiratory distress. Breath sounds: Normal breath sounds. Musculoskeletal: Cervical back: Neck supple. Skin: General: Skin is warm and dry. Capillary Refill: Capillary refill takes less than 2 seconds. Neurological: General: No focal deficit present. Mental Status: He is alert and oriented to person, place, and time. Mental status is at baseline. Cranial Nerves: Cranial nerves 2-12 are intact. Sensory: Sensation is intact. Motor: Motor function is intact. Coordination: Coordination is intact. Gait: Gait is intact. Psychiatric: Attention and Perception: Attention and perception normal. Mood and Affect: Mood and affect normal. Speech: Speech normal. Behavior: Behavior normal. Behavior is cooperative. Thought Content: Thought content normal. Cognition and Memory: Cognition and memory normal. Judgment: Judgment normal. ASSESSMENT/PLAN: 1. Primary hypertension - ICD9: 401.9, ICD10: I10 (primary diagnosis) - Controlled - Continue current medications - Recommend home blood pressure monitoring, to bring results to next visit - Encouraged sodium restriction, DASH or Mediterranean diet - Recommend regular aerobic exercise - CT BRAIN WO IVCON - NIFEDIPINE ER 30 MG TABLET,EXTENDED RELEASE 24 HR - CLONIDINE HCL 0.1 MG TABLET - OLMESARTAN 40 MG TABLET 2. Dizziness - ICD9: 780.4, ICD10: R42 Still getting a whooshing in the head, check CT, no red flags with neuro exam. - CT BRAIN WO IVCON 3. Chronic low back pain without sciatica, unspecified back pain laterality - ICD9: 724.2, 338.29, ICD10: M54.50, G89.29 - OXYCODONE-ACETAMINOPHEN 7.5 MG-325 MG TABLET 4. Neck pain - ICD9: 723.1, ICD10: M54.2 Continues with pain, OARRS reviewed and script is appropriate, non-opioids considered but options limited because he is on coumadin. Patient is aware of risks and benefits of opioid medications and their use, including but not limited to risk for addiction. Advised to take medication as prescribed and adhere to the dosing regimen and to use the least amount necessary for the shortest period of time. Discussed possible side effects including constipation. Advised to use caution when operating heavy machinery and driving and to never share or sell medication. - OXYCODONE-ACETAMINOPHEN 7.5 MG-325 MG TABLET 5. 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) - ICD9: 415.19, ICD10: I26.99 - WARFARIN 5 MG TABLET PDMP website checked and validated. All prescriptions have been APPROPRIATELY filled. No suspicious activity was identified. 02/15/2024 by Zeny Lam APRN.DELIVERY CLERK Portions of this note have been entered by ancillary staff. I have reviewed and when necessary edited, so that they are an adequate record of my encounter with this patient Please note that parts of this document were created using voice recognition software and therefore may contain grammatical errors. Patient verbalizes understanding of instructions from today's visit and in agreement with treatment plan. Questions answered. Agrees to call the office if questions, concerns of issues with acute symptoms not improving or if they worsen. See diagnoses and orders for additional plan(s). Allergies and medications were reviewed, list was updated, and refills given if needed. Past medical, surgical, social, and family history reviewed and updated as appropriate. Encouraged proper diet & exercise as well as compliance with taking medications. Age-appropriate health preventative measures were discussed.. Return in about 3 months (around 05/17/2024) for Follow up on chronic conditions and medications.. Zeny Lam APRN-KAYLA documented in this encounter [facility] 02-15-2024 Telephone encounter Note Patient has OV this afternoon and can discuss medication needs at that time. Patient updated vis MyChart. Osei Maciel LPN [facility] 02-15-2024 Miscellaneous Notes Patient has OV this afternoon and can discuss medication needs at that time. Patient updated vis MyChart. Osei Maciel LPN documented in this encounter [facility] 02-09-2024 Telephone encounter Note PATIENT NOTIFIED OF SAME. Appt rescheduled for 02/15/24. [facility] 02-09-2024 Miscellaneous Notes PATIENT NOTIFIED OF SAME. Appt rescheduled for 02/15/24. Agree with repeat INR in 2 weeks and continue current dose of coumadin. I'm still waiting for the rest of his labs to come back. In order to order the CT we need to do it with an in person visit to document the need/reason for it. He can move up his follow up if he would rather discuss this sooner. Last INR: 2.5 02/09/2024 Current dose of coumadin is: Patient reports 7.5 mg alternating with 5 mg. Last date of dose change: 01/01/2024 Previous INR (date and result): 01/26/2024 2.4 Additional Clinical Information or narrative: yes: No alcohol, no antibiotics, no changes in diet, no unusual bleeding or bruising, no missed doses. Patient scheduled for next INR check in 2 weeks per his request. Patient said to tell provider: That his BP is 117/74. He continues to have the odd sensations in his head (rushing feeling) that happens intermittently and is concerned. He wanted to let provider know if a CT scan was appropriate he would like to have it done by the end of the year as his insurance will be going up and everything is going to be considerably more (CT $120 from a $0 co-pay). Jose J Luevano documented in this encounter [facility] 02-09-2024 Telephone encounter Note Agree with repeat INR in 2 weeks and continue current dose of coumadin. I'm still waiting for the rest of his labs to come back. In order to order the CT we need to do it with an in person visit to document the need/reason for it. He can move up his follow up if he would rather discuss this sooner. [facility] 02-09-2024 Telephone encounter Note Last INR: 2.5 02/09/2024 Current dose of coumadin is: Patient reports 7.5 mg alternating with 5 mg. Last date of dose change: 01/01/2024 Previous INR (date and result): 01/26/2024 2.4 Additional Clinical Information or narrative: yes: No alcohol, no antibiotics, no changes in diet, no unusual bleeding or bruising, no missed doses. Patient scheduled for next INR check in 2 weeks per his request. Patient said to tell provider: That his BP is 117/74. He continues to have the odd sensations in his head (rushing feeling) that happens intermittently and is concerned. He wanted to let provider know if a CT scan was appropriate he would like to have it done by the end of the year as his insurance will be going up and everything is going to be considerably more (CT $120 from a $0 co-pay). Jose J Luevano [facility] 02-08-2024 Telephone encounter Note See other encounter. [facility] 02-08-2024 Miscellaneous Notes See other encounter. Pt is asking what to do about the pain. What can he take or what do you recommend . Brandi Lambert LPN documented in this encounter [facility] 02-08-2024 Telephone encounter Note Pt is asking what to do about the pain. What can he take or what do you recommend . Brandi Lambert LPN [facility] 02-05-2024 Telephone encounter Note See my chart message encounter. [facility] 02-05-2024 Miscellaneous Notes See my chart message encounter. Patient calls and states that he has a friend that has a broken back that is worse than what he has. Patient is asking if provider knows of a good neurologist that she would recommend friend to see? Please review and advise, Tammie Munguia RN documented in this encounter [facility] 02-04-2024 Telephone encounter Note Patient calls and states that he has a friend that has a broken back that is worse than what he has. Patient is asking if provider knows of a good neurologist that she would recommend friend to see? Please review and advise, Tammie Munguia RN [facility] 02-01-2024 History of Presen t illness Narrative Radiology Service Progress Note PATIENT NAME: Alex Brooks DATE OF SERVICE: February 01, 2024 TIME: 3:02 PM PATIENT IDENTITY VERIFICATION COMPLETED USING TWO (2) IDENTIFIERS: Name and Date of confirmed by patient verbally. FALL SCREENING: Has the patient had 2 falls in the last year or 1 fall with injury or currently using an Ambulatory Assistive Device (Walker, Cane, Wheelchair, Crutches, etc.)? Yes, Patient High Risk for Falls What interventions were put in place to prevent falls during this visit? Instructed Patient to Call for Help if Needed, Offered Assistance with Transfers/Clothing, and Increased Observations by Caregivers PATIENT GENDER DATA: Male PATIENT RELEVANT IMPLANT DATA REVIEWED: Yes PATIENT PRESENTS WITH AN IMPLANTABLE OR ATTACHED REGULATORY TECHNICIAN: No RADIOLOGY DEPARTMENT: General X-ray: Exam(s) Completed: Spine X-Ray(s): Cervical AP / LAT / OBL PERIPHERAL IV DATA: Not applicable SIGNED BY: RT Neisha(R) February 01, 2024 3:02 PM documented in this encounter [facility] 02-01-2024 Telephone encounter Note Pt message in another encounter. Brandi Lambert LPN [facility] 02-01-2024 Miscellaneous Notes Pt message in another encounter. Brandi Lambert LPN documented in this encounter [facility] 02-01-2024 Telephone encounter Note Pt calls to report this mornings bp was 122/74 P64. Pt reports he is still getting a woosh woosh woosh sound that will then stop then later will woosh again, ect. Pt reports it feels like air moving through his head. Pt still feels lightheaded. Pt is asking if a brain scan can be ordered. Also his neck is still cracking every time he moves his head. Pt is asking if it is time for an xray. Pt wants to remind provider that he will be done with [facility] on 04/05 so he can get these tests done know for free. Pt also wanted to let provider know that he is not taking Cymbalta because he was having fatigue and anxiety. Since stopping med pt reports those sx have gotten better. Brandi Lambert LPN [facility] 02-01-2024 Miscellaneous Notes Pt calls to report this mornings bp was 122/74 P64. Pt reports he is still getting a woosh woosh woosh sound that will then stop then later will woosh again, ect. Pt reports it feels like air moving through his head. Pt still feels lightheaded. Pt is asking if a brain scan can be ordered. Also his neck is still cracking every time he moves his head. Pt is asking if it is time for an xray. Pt wants to remind provider that he will be done with [facility] on 04/05 so he can get these tests done know for free. Pt also wanted to let provider know that he is not taking Cymbalta because he was having fatigue and anxiety. Since stopping med pt reports those sx have gotten better. Brandi Lambert LPN documented in this encounter [facility] 02-01-2024 Telephone encounter Note Sent. [facility] 02-01-2024 Miscellaneous Notes Sent. PATIENT NOTIFIED OF SAME. Is ok with starting the nifedipine. Let him know that unfortunately we sometimes don't have a great specific reason to pin point why the blood pressure has decided not to cooperate. I do agree, the ativan can reduce bp, so can medications like the percocet. Okay to use the clonidine as needed but I agree too, it is not an ideal nursing home solution because of needing to take it several times a day. I would recommend we start another daily option to better control the bp, would recommend we start nifedipine daily in addition to his olmesartan and then okay to still use the clonidine as needed to bring down bp if having episodes of elevation. Took my blood pressure about 11 am. It was an hour and a half after taking Olmesartan. It was 137/74. Better, but there is probably a reason for the reduction. Last night I took Lorazapam to sleep. All the days of high reading, I hadn't. Dr. Hills had told me awhile ago that Lorazapam will reduce blood pressure. So, I view the 137/74 as a aberration. The high reading, like Thursday's 174/94 are typical of reading without Lorazapam. My concern is what's causing these sudden high reading. The addition of Clonidine helps but it's not a nursing home solution, I believe. Also, the creaking in my neck continues and I'm still getting the staccato like intermittent rushing feeling in my head. Which is very odd. Please let me know what you think. Rich Patient calling asking to make sure his my chart message was sent to Zeny Lam today if possible. documented in this encounter [facility] 01-29-2024 Telephone encounter Note PATIENT NOTIFIED OF SAME. Is ok with starting the nifedipine. [facility] 01-29-2024 Telephone encounter Note Let him know that unfortunately we sometimes don't have a great specific reason to pin point why the blood pressure has decided not to cooperate. I do agree, the ativan can reduce bp, so can medications like the percocet. Okay to use the clonidine as needed but I agree too, it is not an ideal nursing home solution because of needing to take it several times a day. I would recommend we start another daily option to better control the bp, would recommend we start nifedipine daily in addition to his olmesartan and then okay to still use the clonidine as needed to bring down bp if having episodes of elevation. [facility] 01-29-2024 Telephone encounter Note Converted to a phone message, closing this. [facility] 01-29-2024 Miscellaneous Notes Converted to a phone message, closing this. documented in this encounter [facility] 01-29-2024 Telephone encounter Note Took my blood pressure about 11 am. It was an hour and a half after taking Olmesartan. It was 137/74. Better, but there is probably a reason for the reduction. Last night I took Lorazapam to sleep. All the days of high reading, I hadn't. Dr. Hills had told me awhile ago that Lorazapam will reduce blood pressure. So, I view the 137/74 as a aberration. The high reading, like Thursday's 174/94 are typical of reading without Lorazapam. My concern is what's causing these sudden high reading. The addition of Clonidine helps but it's not a nursing home solution, I believe. Also, the creaking in my neck continues and I'm still getting the staccato like intermittent rushing feeling in my head. Which is very odd. Please let me know what you think. Rich Patient calling asking to make sure his my chart message was sent to Zeny Lam today if possible. [facility] 01-28-2024 Telephone encounter Note Patient phoned to check for reply. Given provider's message below with verbalized understanding. Patient checked his BP while on the phone. He got a single reading of 171/89 (80). Patient took another clonidine 0.1 mg while on the phone, waited about 10 min then did another BP check for average of 3 readings, which was 143/75 (70). Did another single reading 2 min later, which was 135/77 (71). Reports he only feels about 20% better than he did this morning when he called in. Patient plans to take another clonidine at bedtime if needed after checks his BP. Patient wants Zeny to know he appreciates you getting back to him so quickly. [facility] 01-28-2024 Miscellaneous Notes Patient phoned to check for reply. Given provider's message below with verbalized understanding. Patient checked his BP while on the phone. He got a single reading of 171/89 (80). Patient took another clonidine 0.1 mg while on the phone, waited about 10 min then did another BP check for average of 3 readings, which was 143/75 (70). Did another single reading 2 min later, which was 135/77 (71). Reports he only feels about 20% better than he did this morning when he called in. Patient plans to take another clonidine at bedtime if needed after checks his BP. Patient wants Zeny to know he appreciates you getting back to him so quickly. Please see if feeling improvement since taking the clonidine, since it has been about 30 minutes since the dose see if he can repeat his blood pressure while on the phone. He has the option of repeating another dose of clonidine if bp continues to be elevated (I would separate doses by at least 2-3 hours before repeating). Patient calling his blood pressure taken at 1030 am was 175/94 was 2 hours after taking his Olmesartan 40 mg. He said he feels wind rushing in his head, he is light headed. He took his Clonidine 0.1 mg 2 tablets 5 minutes later. Patient asking what do you want him to do? Please advise documented in this encounter [facility] 01-28-2024 Telephone encounter Note Please see if feeling improvement since taking the clonidine, since it has been about 30 minutes since the dose see if he can repeat his blood pressure while on the phone. He has the option of repeating another dose of clonidine if bp continues to be elevated (I would separate doses by at least 2-3 hours before repeating). [facility] 01-28-2024 Telephone encounter Note Patient calling his blood pressure taken at 1030 am was 175/94 was 2 hours after taking his Olmesartan 40 mg. He said he feels wind rushing in his head, he is light headed. He took his Clonidine 0.1 mg 2 tablets 5 minutes later. Patient asking what do you want him to do? Please advise [facility] 01-26-2024 Telephone encounter Note Noted, I think those numbers are good, goal is to be less than 140 for SBP and 80 or less for DBP. [facility] 01-26-2024 Miscellaneous Notes Noted, I think those numbers are good, goal is to be less than 140 for SBP and 80 or less for DBP. Pt notified and voiced understanding regarding coumadin. Pt has been taking Benicar 40 mg for the last 5-6 days and wondering if you feel it is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 diagnoses and orders for additional plan(s). Allergies and medications were reviewed, list was updated, and refills given if needed. Past medical, surgical, social, and family history reviewed and updated as appropriate. Encouraged proper diet & exercise as well as compliance with taking medications. Age-appropriate health preventative measures were discussed. Return if symptoms worsen or fail to improve, for Keep next scheduled appointment.. MICHI Navarro documented in this encounter [facility] 01-05-2024 Telephone encounter Note Last INR: INR Home CoaguChek 2.3 01/05/2024 Current dose of coumadin is: 12/31 & 01/02 - 5 mg.01/01 & 01/03 - 7.5 mg Last date of dose change: 12/31. Previous INR (date and result): 3.2 Additional Clinical Information or narrative: no Pt notified of provider's message concerning dosing below and recheck date. Brandi Lambert LPN [facility] 01-05-2024 Miscellaneous Notes Last INR: INR Home CoaguChek 2.3 01/05/2024 Current dose of coumadin is: 12/31 & 929 - 5 mg.01/01 & 30 - 7.5 mg Last date of dose change: 12/31. Previous INR (date and result): 3.2 Additional Clinical Information or narrative: no Pt notified of provider's message concerning dosing below and recheck date. Brandi Lambert LPN Please call patient and advise him to continue with current coumadin dosing by taking coumadin 7.5 mg every other day and 5 mg on the other days. Repeat INR in 1 week. documented in this encounter [facility] 01-05-2024 Telephone encounter Note Please call patient and advise him to continue with current coumadin dosing by taking coumadin 7.5 mg every other day and 5 mg on the other days. Repeat INR in 1 week. [facility] 01-01-2024 Telephone encounter Note PATIENT NOTIFIED OF SAME. Tracker updated. [facility] 01-01-2024 Miscellaneous Notes PATIENT NOTIFIED OF SAME. Tracker updated. Please have him reduce his dose to taking coumadin 7.5 mg every other day and 5 mg on the other days, recommend he take the 5 mg today, 7.5 on sat, 5 on sun, 7.5 on Thursday and then repeat INR on Thursday. Last INR: INR Home CoaguChek 3.2 01/01/2024 Current dose of coumadin is: 10 mg MTWTh, check INR today (Thu). Last date of dose change: 12-28-23 Previous INR (date and result): 1.3, 12-28-23 Additional Clinical Information or narrative: yes: No alcohol, no antibiotics, no changes in diet, no unusual bleeding or bruising, no missed doses. documented in this encounter [facility] 01-01-2024 Telephone encounter Note Please have him reduce his dose to taking coumadin 7.5 mg every other day and 5 mg on the other days, recommend he take the 5 mg today, 7.5 on sat, 5 on sun, 7.5 on Thursday and then repeat INR on Thursday. [facility] 01-01-2024 Telephone encounter Note Last INR: INR Home CoaguChek 3.2 01/01/2024 Current dose of coumadin is: 10 mg MTWTh, check INR today (Thu). Last date of dose change: 12-28-23 Previous INR (date and result): 1.3, 12-28-23 Additional Clinical Information or narrative: yes: No alcohol, no antibiotics, no changes in diet, no unusual bleeding or bruising, no missed doses. [facility] 12-28-2023 Telephone encounter Note Prescription Refill Information The patient has been identified by name and date of : Yes Caregiver verified no other encounters exist for this prescription request: Yes Caregiver confirmed with patient/requestor that no other refills are due, in the near future, with this provider at this time: Yes The last office visit in the department: 12/14/23 Does the patient have a future office visit with this provider/department: Yes 02/26/24 Requested Prescriptions Pending Prescriptions Disp Refills DULoxetine (CYMBALTA) 60 mg capsule 30 capsule 2 Sig: Take 1 capsule by mouth once daily. In the morning. DULoxetine (CYMBALTA) 30 mg capsule 30 capsule 2 Sig: Take 1 capsule by mouth once daily. In the evening Gabby Rm LPN December 28, 2023 2:40 PM [facility] 12-28-2023 Miscellaneous Notes Prescription Refill Information The patient has been identified by name and date of : Yes Caregiver verified no other encounters exist for this prescription request: Yes Caregiver confirmed with patient/requestor that no other refills are due, in the near future, with this provider at this time: Yes The last office visit in the department: 12/14/23 Does the patient have a future office visit with this provider/department: Yes 02/26/24 Requested Prescriptions Pending Prescriptions Disp Refills DULoxetine (CYMBALTA) 60 mg capsule 30 capsule 2 Sig: Take 1 capsule by mouth once daily. In the morning. DULoxetine (CYMBALTA) 30 mg capsule 30 capsule 2 Sig: Take 1 capsule by mouth once daily. In the evening Gabby Rm LPN December 28, 2023 2:40 PM documented in this encounter [facility] 12-28-2023 Telephone encounter Note Pt called and is notified of providers results and instructions. Pt voices understanding. Cyndy Whelan RN [facility] 12-28-2023 Miscellaneous Notes Pt called and is notified of providers results and instructions. Pt voices understanding. Cyndy Whelan RN Please call and have Rich take 10 mg of coumadin today, tomorrow, Thursday and and repeat INR on Thursday because of level being so low at 1.3. Last INR: INR 1.3 12/28/2023 Current dose of coumadin is: 7.5 mg Thu/Thu/Thu/Sat/Sun 5 mg / Last date of dose change: 12/21/23 Previous INR (date and result): INR 1.5 12/21/23 Additional Clinical Information or narrative: NO documented in this encounter [facility] 12-28-2023 Telephone encounter Note Please call and have Rich take 10 mg of coumadin today, tomorrow, Thursday and and repeat INR on Thursday because of level being so low at 1.3. [facility] 12-28-2023 Telephone encounter Note Last INR: INR 1.3 12/28/2023 Current dose of coumadin is: 7.5 mg Thu/Thu/Thu/Sat/Sun 5 mg / Last date of dose change: 12/21/23 Previous INR (date and result): INR 1.5 12/21/23 Additional Clinical Information or narrative: NO [facility] 12-21-2023 Telephone encounter Note PATIENT NOTIFIED OF SAME. Tracker updated [facility] 12-21-2023 Miscellaneous Notes PATIENT NOTIFIED OF SAME. Tracker updated I would recommend he resume his prior dosing of coumadin that he had been taking prior to his dental procedure and then repeat the INR in 1 week to ensure getting back in to desired range. Last INR: INR Home CoaguChek 1.5 12/21/2023 Current dose of coumadin is: 5 mg every Thu, Rody; 7.5 mg all other days . (Pt help Coumadin for 6 day due to tooth extraction restarted on Thursday) Last date of dose change: 10/23/23. Previous INR (date and result): 3.0, 12/08/23. Additional Clinical Information or narrative: yes: Pt states he was off of Coumadin for 6 days because he had a tooth extracted. Pt states he took 7.5 mg Thu/Sat/Sun/Mon. documented in this encounter [facility] 12-21-2023 Telephone encounter Note I would recommend he resume his prior dosing of coumadin that he had been taking prior to his dental procedure and then repeat the INR in 1 week to ensure getting back in to desired range. T [facility] 12-21-2023 Telephone encounter Note Last INR: INR Home CoaguChek 1.5 12/21/2023 Current dose of coumadin is: 5 mg every Thu, Thu; 7.5 mg all other days . (Pt help Coumadin for 6 day due to tooth extraction restarted on Thursday) Last date of dose change: 10/23/23. Previous INR (date and result): 3.0, 12/08/23. Additional Clinical Information or narrative: yes: Pt states he was off of Coumadin for 6 days because he had a tooth extracted. Pt states he took 7.5 mg Thu/Thu/Thu/Thu. T [facility] 12-14-2023 History of Presen t illness Narrative SUBJECTIVE Alex Brooks is a 78 year old male here today for a check up on his medical problems. Chief Complaint Patient presents with: Fatigue: for about 2 weeks states blood pressure is all over the place Dizziness HPI Alex Brooks is a 78 year old male. He is an established patient. Here today for follow up. Back is doing well. Getting acupuncture for his back pain. Since back has been feeling better he notes his blood pressure has seemed more labile. He has gained weight with not being able to be as active. Getting episodes of sweats, feeling tired. Sometimes vision disturbance. Might take a half a pill or whole pill of lisinopril twice daily. Highest reading SBP 140's, lowest SBP 115's. Drinking 2-3 cups of coffee and maybe 3-5 servings of 12 oz sunkist sugar free orange soda. Asking for percocet refill for upcoming dental procedure. His medications were reviewed today and his list is now up to date. Medications Current Outpatient Medications Medication Sig LORazepam (ATIVAN) 2 mg tab Take 1 tablet by mouth at bedtime as needed (insomnia) for up to 180 days. DULoxetine (CYMBALTA) 30 mg capsule Take 1 capsule by mouth once daily. In the evening famotidine (PEPCID) 40 mg tablet Take 1 tablet by mouth once daily as needed. Olopatadine (PATADAY ONCE DAILY RELIEF) 0.2 % drop Use 1 Drop in both eyes once daily. DULoxetine (CYMBALTA) 60 mg capsule Take 1 capsule by mouth once daily. In the morning. tiZANidine (ZANAFLEX) 4 mg tablet Take 1-2 tablets by mouth every 6 hours as needed. pantoprazole DR (PROTONIX) 40 mg tablet take 1 tablet by mouth once daily ON AN EMPTY STOMACH 30 MINUTES PRIOR TO A MEAL potassium chloride (KLOR-CON 10) 10 mEq tablet Take 1 tablet by mouth two times a day. lisinopril (ZESTRIL) 20 mg tablet Take 2 tablets by mouth once daily. Adjust dose as directed based on blood pressure readings warfarin (COUMADIN) 5 mg tablet Take 1.5 tablets on Sundays and 2 tablets Thursday through Saturdays rosuvastatin (CRESTOR) 40 mg tablet Take 1 tablet by mouth once daily. hydrocortisone 2.5 % cream Seldom vitamin B complex (B COMPLEX 1 ORAL) Take 1 tablet by mouth once daily. magnesium oxide 400 mg magnesium cap Take 1 capsule by mouth once daily. (Patient taking differently: Take 500 mg by mouth two times a day. 500mg daily) SAW PALMETTO ORAL Take 400 mg by mouth twice daily. coenzyme Q10 (COENZYME Q-10) 100 mg cap capsule Take 400 mg by mouth once daily. Cyanocobalamin 2,500 mcg subl Dissolve under the tongue twice daily. calcium, elemental, tab Take 600 mg by mouth twice daily. multivitamin (SOFYA MULTIVITAMIN) tablet Take 1 tablet by mouth once daily. oxyCODONE-acetaminophen (PERCOCET) 5-325 mg tablet Take 1 tablet by mouth every 6 hours as needed for pain for up to 7 days. Back Brace (BACK SUPPORT S/M) [facility] Use as instructed. (Patient not taking: Reported on 11/16/2023) No current facility-administered medications for this visit. ALLERGIES Allergen Reactions Cyclobenzaprine Other: See Comments Double vision Gabapentin Intolerance Keflex [Cephalexin] Rash ACTIVE PROBLEM LIST Compression Fracture of L1 Lumbar Vertebra (Hcc) - 07/15/2023 Sciatic Leg Pain - 07/15/2023 Bilateral Carotid Artery Stenosis - 06/15/2023 Acute Gastritis Without Hemorrhage - 04/20/2023 Spinal Stenosis of Lumbar Region - 09/24/2022 Pad (Peripheral Artery Disease) (Hcc) - 08/16/2021 Kidney Insufficiency - 04/04/2021 Posterior Vitreous Detachment of Right Eye - 06/19/2020 Age-Related Nuclear Cataract of Right Eye - 06/19/2020 Balance Problem - 03/12/2020 History of Left-Sided Carotid Endarterectomy - 06/10/2019 Colonic Polyp - 11/29/2018 Usp (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 Hypercoag studies all have been neg as of 05/2014. Bro w/hypercoag W/U previously as well. Gerd (Gastroesophageal Reflux Disease) - 02/17/2014 Htn (Hypertension) - 07/02/2009 Comment: 03/24/2023: Home BP Cuff Validated. Home BP: 114/71 93 Office BP: 100/56 96 Lumbago - 02/23/2009 Impaired Fasting Glucose - 10/11/2008 Comment: Under 110; See labs 10/12 Hereditary and Idiopathic Peripheral Neuropathy - 10/05/2008 Mixed Hyperlipidemia - 10/05/2008 Benign Prostatic Hyperplasia With Nocturia - 09/04/2008 Insomnia, unspecified - 09/04/2008 Social History Tobacco Use Smoking status: Former Current packs/day: 0.00 Average packs/day: 1 pack/day for 20.0 years (20.0 ttl pk-yrs) Types: Cigarettes Start date: 04/06/1960 Quit date: 04/06/1980 Years since quittin.7 Smokeless tobacco: Never Vaping Use Vaping status: Never Used Substance Use Topics Alcohol use: Not Currently Comment: stopped 07/19/2022 Drug use: Yes Frequency: 7.0 times per week Types: Marijuana Review of Systems Respiratory: Negative. Cardiovascular: Negative. OBJECTIVE BP 120/80 Pulse 89 Wt 181 lb (82.1kg) SpO2 98% Physical Exam Vitals and nursing note reviewed. Constitutional: General: He is awake. He is not in acute distress. Appearance: Normal appearance. He is well-developed and well-groomed. He is not ill-appearing, toxic-appearing or diaphoretic. HENT: Head: Normocephalic. Right Ear: External ear normal. Left Ear: External ear normal. Nose: Nose normal. Eyes: General: Vision grossly intact. Conjunctiva/sclera: Conjunctivae normal. Pupils: Pupils are equal, round, and reactive to light. Neck: Vascular: No JVD. Trachea: Trachea normal. Cardiovascular: Rate and Rhythm: Normal rate and regular rhythm. Pulses: Normal pulses. Heart sounds: Normal heart sounds. No murmur heard. Pulmonary: Effort: Pulmonary effort is normal. No accessory muscle usage, prolonged expiration or respiratory distress. Breath sounds: Normal breath sounds. Musculoskeletal: Cervical back: Neck supple. Skin: General: Skin is warm and dry. Capillary Refill: Capillary refill takes less than 2 seconds. Neurological: General: No focal deficit present. Mental Status: He is alert and oriented to person, place, and time. Mental status is at baseline. Psychiatric: Attention and Perception: Attention and perception normal. Mood and Affect: Mood and affect normal. Speech: Speech normal. Behavior: Behavior normal. Behavior is cooperative. Thought Content: Thought content normal. Cognition and Memory: Cognition and memory normal. Judgment: Judgment normal. ASSESSMENT/PLAN: 1. Primary hypertension - ICD9: 401.9, ICD10: I10 (primary diagnosis) - Worsening control - Continue current medications, take the whole tab of lisinopril twice daily instead of some days half a tab - Cut back on caffeine - Get labs today - Recommend home blood pressure monitoring, to bring results to next visit - Encouraged sodium restriction, DASH or Mediterranean diet - Recommend regular aerobic exercise 2. Pain, dental - ICD9: 525.9, ICD10: K08.89 - OXYCODONE-ACETAMINOPHEN 5 MG-325 MG TABLET 3. Compression fracture of L1 vertebra with routine healing, subsequent encounter - ICD9: V54.17, ICD10: S32.010D - OXYCODONE-ACETAMINOPHEN 5 MG-325 MG TABLET 4. Chronic low back pain without sciatica, unspecified back pain laterality - ICD9: 724.2, 338.29, ICD10: M54.50, G89.29 - OXYCODONE-ACETAMINOPHEN 5 MG-325 MG TABLET [facility] website checked and validated. All prescriptions have been APPROPRIATELY filled. No suspicious activity was identified. 12/14/2023 by Zeny Lam APRN.CNP Portions of this note have been entered by ancillary staff. I have reviewed and when necessary edited, so that they are an adequate record of my encounter with this patient Please note that parts of this document were created using voice recognition software and therefore may contain grammatical errors. Patient verbalizes understanding of instructions from today's visit and in agreement with treatment plan. Questions answered. Agrees to call the office if questions, concerns of issues with acute symptoms not improving or if they worsen. See diagnoses and orders for additional plan(s). Allergies and medications were reviewed, list was updated, and refills given if needed. Past medical, surgical, social, and family history reviewed and updated as appropriate. Encouraged proper diet & exercise as well as compliance with taking medications. Age-appropriate health preventative measures were discussed. No follow-ups on file. Zeny Lam APRN-KAYLA documented in this encounter [facility] 12-10-2023 Telephone encounter Note Health Maintenance updated. [facility] 12-10-2023 Miscellaneous Notes Health Maintenance updated. Patient calling to say he received his COVID booster (Moderna) [facility] [place] today. Molly Ann RN documented in this encounter [facility] 12-10-2023 Telephone encounter Note Patient calling to say he received his COVID booster (Moderna) at [facility] [place] today. Molly Ann RN [facility] 12-08-2023 Telephone encounter Note Spoke with pt and information listed below given. Pt verbalizes understanding. Tracker updated. Transferred to maintenance scheduler to get lab apt booked for 12-18-23. Maribel Oden LPN [facility] 12-08-2023 Miscellaneous Notes Spoke with pt and information listed below given. Pt verbalizes understanding. Tracker updated. Transferred to maintenance scheduler to get lab apt booked for 12-18-23. Maribel Oden LPN LEFT MESSAGE FOR PATIENT TO CALL OFFICE. Since he still is in the goal parameters of 2-3 for INR we can continue current dose of the coumadin, but preference would be to repeat INR in 10 days instead of 2 weeks to ensure it is not increasing further. Last INR: INR Home CoaguChek 3.0 12/08/2023 Current dose of coumadin is: 5 mg Tues & Thurs, 7.5 mg other days. Last date of dose change: 10/23/23. Previous INR (date and result): 2.5 11/10/23 Additional Clinical Information or narrative: yes: Pt reports he drank a bottle of red wine on 12/04/23 He also is not sure if he took an extra dose of 7.5 mg one day but feels it was the bottle of wine that increased his INR. Brandi Lambert LPN documented in this encounter [facility] 12-08-2023 Telephone encounter Note LEFT MESSAGE FOR PATIENT TO CALL OFFICE. [facility] 12-08-2023 Telephone encounter Note Since he still is in the goal parameters of 2-3 for INR we can continue current dose of the coumadin, but preference would be to repeat INR in 10 days instead of 2 weeks to ensure it is not increasing further. [facility] 12-08-2023 Telephone encounter Note Last INR: INR Home CoaguChek 3.0 12/08/2023 Current dose of coumadin is: 5 mg Tues & Thurs, 7.5 mg other days. Last date of dose change: 10/23/23. Previous INR (date and result): 2.5 11/10/23 Additional Clinical Information or narrative: yes: Pt reports he drank a bottle of red wine on 12/04/23 He also is not sure if he took an extra dose of 7.5 mg one day but feels it was the bottle of wine that increased his INR. Brandi Lambert LPN [facility] 12-08-2023 Telephone encounter Note PDMP website checked and validated. All prescriptions have been APPROPRIATELY filled. No suspicious activity was identified. 12/08/2023 by Zeny Lam APRN.CNP [facility] 12-08-2023 Miscellaneous Notes PDMP website checked and validated. All prescriptions have been APPROPRIATELY filled. No suspicious activity was identified. 12/08/2023 by Zeny Lam APRN.CNP Prescription Refill Information The patient has been identified by name and date of : Yes Caregiver verified no other encounters exist for this prescription request: Yes Caregiver confirmed with patient/requestor that no other refills are due, in the near future, with this provider at this time: Yes The last office visit in the department: 09/15/23 Does the patient have a future office visit with this provider/department: Yes Requested Prescriptions Pending Prescriptions Disp Refills LORazepam (ATIVAN) 2 mg tab 90 tablet 1 Sig: Take 1 tablet by mouth at bedtime as needed (insomnia) for up to 180 days. Celia Negrete LPN December 08, 2023 10:36 AM documented in this encounter [facility] 12-08-2023 Telephone encounter Note Prescription Refill Information The patient has been identified by name and date of : Yes Caregiver verified no other encounters exist for this prescription request: Yes Caregiver confirmed with patient/requestor that no other refills are due, in the near future, with this provider at this time: Yes The last office visit in the department: 09/15/23 Does the patient have a future office visit with this provider/department: Yes Requested Prescriptions Pending Prescriptions Disp Refills LORazepam (ATIVAN) 2 mg tab 90 tablet 1 Sig: Take 1 tablet by mouth at bedtime as needed (insomnia) for up to 180 days. Celia Negrete LPN December 08, 2023 10:36 AM [facility] 12-02-2023 Telephone encounter Note Prescription Refill Information The patient has been identified by name and date of : Yes Caregiver verified no other encounters exist for this prescription request: Yes Caregiver confirmed with patient/requestor that no other refills are due, in the near future, with this provider at this time: Yes The last office visit in the department: 09/15/23 Does the patient have a future office visit with this provider/department: Yes Requested Prescriptions Pending Prescriptions Disp Refills DULoxetine (CYMBALTA) 30 mg capsule 30 capsule 2 Sig: Take 1 capsule by mouth once daily. In the evening Molly Ann RN December 02, 2023 1:19 PM s [facility] 12-02-2023 Miscellaneous Notes Prescription Refill Information The patient has been identified by name and date of : Yes Caregiver verified no other encounters exist for this prescription request: Yes Caregiver confirmed with patient/requestor that no other refills are due, in the near future, with this provider at this time: Yes The last office visit in the department: 09/15/23 Does the patient have a future office visit with this provider/department: Yes Requested Prescriptions Pending Prescriptions Disp Refills DULoxetine (CYMBALTA) 30 mg capsule 30 capsule 2 Sig: Take 1 capsule by mouth once daily. In the evening Molly Ann RN December 02, 2023 1:19 PM s documented in this encounter [facility] 11-24-2023 Telephone encounter Note Patient notified of results and provider's instructions. Patient verbalizes understanding. Tammie Munguia RN [facility] 11-24-2023 Miscellaneous Notes Patient notified of results and provider's instructions. Patient verbalizes understanding. Tammie Munguia RN INR is 2.4, continue on current dose of coumadin and repeat INR in 2 weeks. Let me know if any questions or concerns. Thanks! Zeny Lam APRN.CNP documented in this encounter [facility] 11-24-2023 Telephone encounter Note INR is 2.4, continue on current dose of coumadin and repeat INR in 2 weeks. Let me know if any questions or concerns. Thanks! Zeny Lam APRN.CNP [facility] 11-23-2023 Telephone encounter Note Patient phoned checking to see if the x-tra 4 sessions were approved from [employer]. Advised per chart, it does not appear we have received approval letter at this time. Advised letter was faxed to [employer] on 11-20-23. Patient agreeable. [facility] 11-23-2023 Miscellaneous Notes Patient phoned checking to see if the x-tra 4 sessions were approved from [employer]. Advised per chart, it does not appear we have received approval letter at this time. Advised letter was faxed to [employer] on 11-20-23. Patient agreeable. documented in this encounter [facility] 11-17-2023 Telephone encounter Note [facility] 11-17-2023 Telephone encounter Note See other encounter regarding this. [facility] 11-17-2023 Miscellaneous Notes See other encounter regarding this. documented in this encounter [facility] 11-17-2023 Miscellaneous Notes documented in this encounter [facility] 11-16-2023 Micah Grant APRN.CNP, [facility] - 11/16/2023 1:53 PM EDT Follow up with Micah Portillo APRN.CARA GARZA in 1 year Continue to monitor urinary symptoms. RTC sooner for any bothersome symptoms. Avoid bladder irritants - coffee, tea, cola drinks, chocolate, alcohol, artificial sweeteners and cigarettes Lower urinary tract symptoms suggestive of benign prostatic enlargement. Return to the clinic or seek care at [facility] for any worsening signs or symptoms: such as fevers, chills, worsening pain, gross blood in urine or worsening urinary symptoms. For severe symptoms seek care at the closest ER. Plan of care, medicaiton side effects and management reviewed with patient. Healthy Habits: Recommend regular physical activity, nutrition and healthy eating habits. Consume a variety of foods every day focusing on fruits, vegetables and lean meats). Eat foods low in fat, saturated fat and cholesterol. Eat a limited amount of salt and sodium. Drink adequate amounts of water and limit sugary drinks. Exercise portion control in meal selection. Establish a mindset of a wellness approach to health. Thank you for allowing me to provide your care today. I look forward to seeing you again and maintaining your health. Micah Portillo APRN.CARA GARZA documented in this encounter [facility] 11-16-2023 History of Presen t illness Narrative Verified name and date of . CC Post Void Residual HPI: Elizabeth gardiner is here now for an appointment with Lindsey Obrien APRN, DNP Procedure: Explained procedure to patient and verbalizes understanding. Performed a PVR. Patient urinated and instructed to empty bladder as much as possible just prior to having PVR done using bladder ultrasound scanner. Results of scan: 0 mL The patient tolerated the procedure well. Plan: Appointment with Micah. [facility] MALE PATIENT - HISTORY AND PHYSICAL EXAMINATION PATIENT: Alex Brooks (77 year old) 08/10/2023 PCP: Zeny Lam APRN.DELIVERY CLERK CHIEF COMPLAINT: BPH/LUTS follow up appt HISTORY OF PRESENT ILLNESS: 78 year old year old male with BPH/LUTS here for follow up appt. Was having worsening urinary symptoms. NTF 3x4 most bothersome. Previously seen Dr. Zhao in 2018 for slightly rising PSA. PSA returned to normal. Was on Saw [place] - did not notice any difference. Restarted taking Saw [place] 400mgs. Started on Flomax at last appt. Had significant increased frequency after one dose. Stopped taking and symptoms resolved back to his baseline. Not currently taking Flomax and feels symptoms are not bothersome at this time. No blood in urine. PRESENTING HISTORY: Hematuria: none Obstructive voiding symptoms: hesitancy and weak stream. Irritative voiding symptoms: frequency, urgency, and nocturia Urinary retention: no Urinary incontinence: no Urinary tract infection: no NO FHX OF PROSTATE, KIDNEY OR BLADDER CANCER Patient Entered Questionnaires: INTERNATIONAL PROSTATE SYMPTOM SCORE (I-PSS) PREVIOUS TOTAL IPSS SCORE: 22 QOL = 5 1. Incomplete emptying 1 2. Frequency 3 3. Intermittency 3 4. Urgency 4 5. Weak stream 3 6. Straining 2 7. Nocturia 3 TOTAL IPSS SCORE 19 QOL = 3 PROMIS [employer] 05/14/2023 08/03/2023 11/09/2023 PROMIS Global Health Scale Physical Health Percentile 22 22 15 Mental Health Percentile 63 63 43 Percentiles provide an indication of how the patient's score ranks in relation to the general population. Higher percentile rankings indicate better function/quality of life. 50th percentile is the average of the general population and indicates half of respondents had a worse score. HISTORY: PAST MEDICAL HISTORY No date: Asthma Comment: as a teenager No date: Benign prostatic hyperplasia with nocturia 02/14/2019: Bilateral carotid artery stenosis 09/04/2008: BPH with obstruction/lower urinary tract symptoms 02/21/2019: Carotid stenosis, left Comment: s/p CEA 01/16/2021: Closed nondisplaced fracture of distal phalanx of right great toe 11/29/2018: Colonic polyp 03/08/2014: DDD (degenerative disc disease), lumbar 09/15/2016: Elevated prostate specific antigen (PSA) No date: Esophageal reflux 01/05/2018: Fall at home Comment: Right Rib Fracture No date: Hypertension 09/04/2008: Hypertrophy of prostate with urinary obstruction and other lower urinary tract symptoms (LUTS) Comment: With mild night-time symptoms, exam ok as of 09/200810/05/2008: IDIO PERIPH NEURPTHY NOS Comment: Feet to knees, as of 2008 --- in [place], neurologist thought related to alcohol; Has had EMG/NCS ? Related to sugar? -- see fasting glucose 2008; 10/11/2008: Impaired fasting glucose Comment: Under 110; See labs 10/1209/04/2008: INSOMNIA NOS Comment: Doing well with as-needed benzo at night 05/28/2010: Left bundle branch block 02/23/2009: Lumbago 08/07/2011: Lumbosacral spondylosis without myelopathy No date: Lung disease Comment: [place] Fever No date: Macular hole Comment: left eye 06/19/2020: Macular hole of left eye 10/05/2008: Mixed hyperlipidemia No date: Neuropathy No date: Nuclear sclerosis of right eye 09/04/2011: PE (pulmonary embolism) No date: Peripheral vascular disease (HCC) 12/12/2008: Perirectal abscess 11/11/2011: Postconcussion syndrome 05/08/2014: 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) 09/26/2011: Traumatic intracerebral hemorrhage (HCC) 05/07/2011: Ureterolithiasis PAST SURGICAL HISTORY 06/10/2019: CAROTID ENDARTERECTOMY; Left Comment: Left CEA, bovine patch angioplasty 11/10/2008: COLONOSCOPY FLX DX W/COLLJ SPEC WHEN PFRMD 03/24/2022: COLONOSCOPY SCREENING 11/29/2018: COLONSCOPY W/DECOMPRESS 11/10/2008: EGD TRANSORAL BIOPSY SINGLE/MULTIPLE 1974: EXTRACTION, ERUPTED TOOTH OR EXPOSED ROOT (ELEVATION AND/OR FORCEPS REMOVAL) Comment: wisdom teeth 11/29/2018: F COLONOSCOPY WITH BIOPSY 1955: PAST SURGICAL HISTORY OF; Left Comment: complex lac left hand, as a child 05/04/2013: PAST SURGICAL HISTORY OF Comment: Pars plana vitrectomy. No date: REMV CATARACT EXTRACAP,INSERT LENS; Left 09/20/2012: TRANSCATH RETRIEVAL,PERCUT Comment: IVC filter retrieval 10/25/2013: TRIESENCE INTRAVITREAL INJECTION OS (LEFT EYE) 09/26/2011: VENA CAVA FILTER Comment: later removed Social History Tobacco Use Smoking status: Former Packs/day: 1.00 Years: 20.00 Additional pack years: 0.00 Total pack years: 20.00 Types: Cigarettes Quit date: 04/06/1980 Years since quittin.6 Smokeless tobacco: Never Vaping Use Vaping Use: Never used Substance Use Topics Alcohol use: Not Currently Comment: stopped 07/19/2022 Drug use: Yes Frequency: 7.0 times per week Types: Marijuana FAMILY HISTORY Problem Relation Age of Onset Hypertension Mother (longevity on mom's side) Cataract Mother Coronary Artery Disease Father father who of sudden cardiac arrest age 74 Heart Father heart stopped Blood Disease Brother pulmonary embolism history No Known Problems Maternal Grandmother No Known Problems Maternal Grandfather No Known Problems Paternal Grandmother Heart Paternal Grandfather Colon Cancer Other no close relatives known Prostate Cancer Other none Emphysema Other none MEDICATIONS: Current Outpatient Medications Medication Sig famotidine (PEPCID) 40 mg tablet Take 1 tablet by mouth once daily as needed. DULoxetine (CYMBALTA) 30 mg capsule Take 1 capsule by mouth once daily. In the evening Olopatadine (PATADAY ONCE DAILY RELIEF) 0.2 % drop Use 1 Drop in both eyes once daily. DULoxetine (CYMBALTA) 60 mg capsule Take 1 capsule by mouth once daily. In the morning. tiZANidine (ZANAFLEX) 4 mg tablet Take 1-2 tablets by mouth every 6 hours as needed. pantoprazole DR (PROTONIX) 40 mg tablet take 1 tablet by mouth once daily ON AN EMPTY STOMACH 30 MINUTES PRIOR TO A MEAL potassium chloride (KLOR-CON 10) 10 mEq tablet Take 1 tablet by mouth two times a day. lisinopril (ZESTRIL) 20 mg tablet Take 2 tablets by mouth once daily. Adjust dose as directed based on blood pressure readings LORazepam (ATIVAN) 2 mg tab Take 1 tablet by mouth at bedtime as needed (insomnia) for up to 180 days. warfarin (COUMADIN) 5 mg tablet Take 1.5 tablets on Sundays and 2 tablets Thursday through Saturdays rosuvastatin (CRESTOR) 40 mg tablet Take 1 tablet by mouth once daily. hydrocortisone 2.5 % cream Seldom vitamin B complex (B COMPLEX 1 ORAL) Take 1 tablet by mouth once daily. magnesium oxide 400 mg magnesium cap Take 1 capsule by mouth once daily. (Patient taking differently: Take 500 mg by mouth two times a day. 500mg daily) EMANUEL LIMONO ORAL Take 400 mg by mouth twice daily. coenzyme Q10 (COENZYME Q-10) 100 mg cap capsule Take 400 mg by mouth once daily. Cyanocobalamin 2,500 mcg subl Dissolve under the tongue twice daily. calcium, elemental, tab Take 600 mg by mouth twice daily. multivitamin (SOFYA MULTIVITAMIN) tablet Take 1 tablet by mouth once daily. oxyCODONE-acetaminophen (PERCOCET) 5-325 mg tablet Take 1 tablet by mouth every 6 hours as needed for pain for up to 7 days. Back Br[facility] ([facility] SUPPORT S/M) [facility] Use as instructed. (Patient not taking: Reported on 11/16/2023) No current facility-administered medications for this visit. LABS: Latest Ref Rng 11/16/2023 GLUCOSE UA (POCT) Negative mg/dL Negative BILIRUBIN UA (POCT) Negative Negative KETONE UA (POCT) Negative mg/dL Negative SPECIFIC GRAVITY UA (POCT) 1.005 - 1.030 1.025 HEMOGLOBIN/BLOOD UA (POCT) Negative Negative PH UA (POCT) 4.5 - 8.0 6.0 PROTEIN UA (POCT) Negative mg/dL 30 ! UROBILINOGEN UA (POCT) Normal E.U./dL 0.2 NITRITE UA (POCT) Negative Negative LEUKOCYTES UA (POCT) Negative Negative COLOR UA (POCT) Yellow CLARITY UA (POCT) Clear Legend: ! Abnormal Creatinine Creatinine Date Value Ref Range Status 09/08/2023 0.82 0.73 - 1.22 mg/dL Final 07/15/2023 0.72 (L) 0.73 - 1.22 mg/dL Final 01/14/2023 0.90 0.73 - 1.22 mg/dL Final 08/18/2022 0.93 0.73 - 1.22 mg/dL Final PSA PSA (ng/mL) Date Value 10/15/2017 0.65 03/02/2017 0.66 04/29/2016 1.25 04/10/2015 0.75 PSA Screening (ng/mL) Date Value 05/26/2022 0.61 10/24/2020 0.81 10/19/2018 0.58 OFFICE DATA: POST-VOID RESIDUAL BLADDER VOLUME: YES, 0 cc IMAGING: No results found. Review of Systems: PAIN ASSESSMENT: CURRENTLY HAVING NO PAIN GENERAL: No weight loss, malaise or fevers GI: No nausea, vomiting MUSCULOSKELETAL: Negative for generalized joint pain SKIN: Negative for rash HEMATOLOGY/LYMPHOLOGY: Negative for swollen nodes All other systems reviewed and noncontributory PHYSICAL EXAMINATION: VITALS: BP 110/78 (BP Site: Right Arm, BP Position: Sitting, BP Cuff Size: Regular Adult) Pulse 94 Temp 36.4 C (97.5 F) (Temporal) Resp 18 Ht 185.4 cm (6' 1) Wt 83 kg (183 lb) SpO2 98% BMI 24.14 kg/m GENERAL: alert, no distress, normal affect RESPIRATORY: normal effort EXTREMITIES: normal SKIN: normal NEUROLOGIC: normal ASSESSMENT/PLAN: 1. Benign prostatic hyperplasia with nocturia - ICD9: 600.01, 788.43, ICD10: N40.1, R35.1 MDM: The patient has lower urinary tract symptoms suggestive of benign prostatic hyperplasia. I discussed treatment options at length including r/b/a of each. I also discussed the role of further evaluation with UDS, TRUS and cysto if indicated. Discussed the role of pharmacotherapy, including risks, benefits and alternatives: -UA Prot/PENG Normal/No FHX of prostate cancer Shared decision to monitor symptoms for now and hold Flomax Discussed alternatives of Cialis and finasteride. PVR = 0 ml Plan: Stop Flomax follow up in 12 months Avoid bladder irritants - coffee, tea, cola drinks, chocolate, alcohol, artificial sweeteners and cigarettes - BLADDER SCAN - URINE DIP 2. Urgency of urination - ICD9: 788.63, ICD10: R39.15 Plan as above I spent a total of 30 minutes on the date of the service which included preparing to see the patient, [id number] patient care, completing clinical documentation, performing a medically appropriate examination, counseling and educating the patient/family/caregiver and ordering medications, tests, or procedures. This note was copied from previous note and exam dated 08/10/23. Author is Micah Portillo APRN.CARA GARZA note reviewed and changes have been made or updates noted in the copy & paste portion of an encounter. Micah Portillo DNP, KAYLA Department of Urology [facility] documented in this encounter [facility] 11-12-2023 Note HNO ID: [id number] Author: WALT YANG R Ac Service: ? Author Type: Diplomat of Acupuncture Type: Progress Notes Filed: 11/12/2023 14:45 Note Text: Alex Brooks a 78 year old male presents to the acupuncture clinic on 11/12/23 for an initial consultation. 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 He was on percocet for 13 weeks which was temporarily beneficial for a while and worn off quickly. Patient has a history of fall in the kitchen and fractured his L1 vertebra spine in early 2023. He has been experiencing sciatica on both legs with persistent pain in lumbosacral region. In 1994, patient has been suffering from neuropathy with dropped foot. He really enjoyed drinking wine for many years. He was advised to cut back on reducing alcohol intake. He was living in [facility] since he was born and moved to [place] for job-related which he regret as business environment and living was not the same. About 10 year ago, he moved to [place] and that was when he started experiencing exacerbation of all the condition. 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 No diabetes Coumadin [facility] [address] [facility] [address] Dept: [phone] Alex Brooks : 1945 [place] [facility] Acupuncture Intake Form (For Patient Review Regarding Diagnostic Exam) I have received a diagnostic exam by physician or chiropractor within the last six months regarding the condition for which I am seeking treatment. Patient Signature: Alex Brooks Date: 11/12/23 Piano Refinisher Signature: Walt Yang Lac. Date: 11/12/23 The patient's history is well detailed in the EMR. Current view: Showing all answers [facility] Additional Demo Question 11/05/2023 10:20 AM EDT - Filed by Patient Is this visit related to an accident, other than Workers' Compensation? No Is this visit related to Workers' Compensation? No Do you need an foreign language interpreter? No [facility] Promis Cat V2.0-Physical Function-28 Days Question 11/05/2023 10:21 AM EDT - Filed by Patient 08/20/2023 9:34 AM EDT - Filed by Patient 07/12/2023 5:31 AM EDT - Filed by Patient PROMIS Physical Function T-Score (range: 10 - 90) 34 (moderate dysfunction) 31 (moderate dysfunction) 27 (severe dysfunction) PROMIS Physical Function Percentile (range: 0 - 100) 5 3 1 [facility] Promis Cat V1.0 - Fatigue-28 Days Question 11/05/2023 10:22 AM EDT - Filed by Patient 08/20/2023 9:35 AM EDT - Filed by Patient PROMIS Fatigue T-Score (range: 10 - 90) 64 (moderate) 64 (moderate) PROMIS Fatigue Percentile (range: 0 - 100) 8 8 [facility] Promis Cat V1.0-Anxiety 28 Days Question 11/05/2023 10:23 AM EDT - Filed by Patient 08/20/2023 9:36 AM EDT - Filed by Patient PROMIS Anxiety T-Score (range: 10 - 90) 51 (within normal limits) 58 (mild) PROMIS Anxiety Percentile (range: 0 - 100) 46 21 [facility] Neuro-Qol Cat V2.0 Cognitive Function-28 Days Question 11/05/2023 10:23 AM EDT - Filed by Patient 08/20/2023 9:36 AM EDT - Filed by Patient Neuro-QoL - Cognitive Function T-Score (range: 10 - 90) 43 (mild dysfunction) 43 (mild dysfunction) Neuro-QoL Cognitive Function Percentile (range: 0 - 100) 24 24 [facility] Promis Cat V1.0-Satisfaction With Social Roles-28 Days Question 11/05/2023 10:25 AM EDT - Filed by Patient 08/20/2023 9:37 AM EDT - Filed by Patient PROMIS - Satisfaction with Participation in Social Roles T-Score (range: 10 - 90) 46 (Average) 33 (Low) PROMIS Social Role Satisfaction Percentile (range: 0 - 100) 34 4 [facility] Promis Cat V1.1-Pain Interference-28 Days Question 11/05/2023 10:26 AM EDT - Filed by Patient 08/20/2023 9:38 AM EDT - Filed by Patient 06/02/2023 8:25 AM EDT - Filed by Patient PROMIS Pain Interference T-Score (range: 10 - 90) (range: 10 - 90) 63 (moderate) 66 (moderate) 67 (moderate) PROMIS Pain Interference Percentile (range: 0 - 100) 10 5 4 [facility] Promis Cat V1.0-Sleep Disturbance-28 Days Question 11/05/2023 10:27 AM EDT - Filed by Patient 08/20/2023 9:39 AM EDT - Filed by Patient PROMIS Sleep Disturbance T-Score (range: 10 - 90) 49 (within normal limits) 52 (within normal limits) PROMIS Sleep Disturbance Percentile (range: 0 - 100) 54 42 [facility]il[facility] Acupuncture Intake Form Question 11/05/2023 10:48 AM EDT - Filed by Patient Are you presently working? No Are you currently being treated with blood thinning medications? Yes Drug name: Warfarin Are you currently being treated with chemotherapy? No Please check all that apply: None apply Primary Reason for Treatment: Chronic lower back pain and sciatica Have you received a medical diagnosis? Yes If Yes, please explain: I was diagnosed with an inoperable bulging disk on my lower back. Have you had any medical imaging? Yes If Yes, please explain: I had recent (more content not included)... [facility] 11-12-2023 History of Presen t illness Narrative Images from the original note were not included. Alex borjas 78 year old male presents to the acupuncture clinic on 11/12/23 for an initial consultation. 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 He was on percocet for 13 weeks which was temporarily beneficial for a while and worn off quickly. Patient has a history of fall in the kitchen and fractured his L1 vertebra spine in early 2023. He has been experiencing sciatica on both legs with persistent pain in lumbosacral region. In 1994, patient has been suffering from neuropathy with dropped foot. He really enjoyed drinking wine for many years. He was advised to cut back on reducing alcohol intake. He was living in [facility] since he was born and moved to [place] for job-related which he regret as business environment and living was not the same. About 10 year ago, he moved to [place] and that was when he started experiencing exacerbation of all the condition. 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 No diabetes Coumadin [facility] [address] [facility] [address] Dept: [phone] Alex Brooks : 1945 [facility] Acupuncture Intake Form (For Patient Review Regarding Diagnostic Exam) I have received a diagnostic exam by physician or chiropractor within the last six months regarding the condition for which I am seeking treatment. Patient Signature: Alex Brooks Date: 11/12/23 Piano Refinisher Signature: Walt Yang Lac. Date: 11/12/23 The patient's history is well detailed in the EMR. Current view: Showing all answers [facility] Remoovhart Additional Demo Question 11/05/2023 10:20 AM EDT - Filed by Patient Is this visit related to an accident, other than Workers' Compensation? No Is this visit related to Workers' Compensation? No Do you need an foreign language interpreter? No Ccf Promis Cat V2.0-Physical Function-28 Days Question 11/05/2023 10:21 AM EDT - Filed by Patient 08/20/2023 9:34 AM EDT - Filed by Patient 07/12/2023 5:31 AM EDT - Filed by Patient PROMIS Physical Function T-Score (range: 10 - 90) 34 (moderate dysfunction) 31 (moderate dysfunction) 27 (severe dysfunction) PROMIS Physical Function Percentile (range: 0 - 100) 5 3 1 Ccf Promis Cat V1.0 - Fatigue-28 Days Question 11/05/2023 10:22 AM EDT - Filed by Patient 08/20/2023 9:35 AM EDT - Filed by Patient PROMIS Fatigue T-Score (range: 10 - 90) 64 (moderate) 64 (moderate) PROMIS Fatigue Percentile (range: 0 - 100) 8 8 Ccf Promis Cat V1.0-Anxiety 28 Days Question 11/05/2023 10:23 AM EDT - Filed by Patient 08/20/2023 9:36 AM EDT - Filed by Patient PROMIS Anxiety T-Score (range: 10 - 90) 51 (within normal limits) 58 (mild) PROMIS Anxiety Percentile (range: 0 - 100) 46 21 [facility] Neuro-Qol Cat V2.0 Cognitive Function-28 Days Question 11/05/2023 10:23 AM EDT - Filed by Patient 08/20/2023 9:36 AM EDT - Filed by Patient Neuro-QoL - Cognitive Function T-Score (range: 10 - 90) 43 (mild dysfunction) 43 (mild dysfunction) Neuro-QoL Cognitive Function Percentile (range: 0 - 100) 24 24 [facility] Promis Cat V1.0-Satisfaction With Social Roles-28 Days Question 11/05/2023 10:25 AM EDT - Filed by Patient 08/20/2023 9:37 AM EDT - Filed by Patient PROMIS - Satisfaction with Participation in Social Roles T-Score (range: 10 - 90) 46 (Average) 33 (Low) PROMIS Social Role Satisfaction Percentile (range: 0 - 100) 34 4 C[facility] Promis Cat V1.1-Pain Interference-28 Days Question 11/05/2023 10:26 AM EDT - Filed by Patient 08/20/2023 9:38 AM EDT - Filed by Patient 06/02/2023 8:25 AM EDT - Filed by Patient PROMIS Pain Interference T-Score (range: 10 - 90) (range: 10 - 90) 63 (moderate) 66 (moderate) 67 (moderate) PROMIS Pain Interference Percentile (range: 0 - 100) 10 5 4 Ccf Promis Cat V1.0-Sleep Disturbance-28 Days Question 11/05/2023 10:27 AM EDT - Filed by Patient 08/20/2023 9:39 AM EDT - Filed by Patient PROMIS Sleep Disturbance T-Score (range: 10 - 90) 49 (within normal limits) 52 (within normal limits) PROMIS Sleep Disturbance Percentile (range: 0 - 100) 54 42 [facility] Acupuncture Intake Form Question 11/05/2023 10:48 AM EDT - Filed by Patient Are you presently working? No Are you currently being treated with blood thinning medications? Yes Drug name: Warfarin Are you currently being treated with chemotherapy? No Please check all that apply: None apply Primary Reason for Treatment: Chronic lower back pain and sciatica Have you received a medical diagnosis? Yes If Yes, please explain: I was diagnosed with an inoperable bulging disk on my lower back. Have you had any medical imaging? Yes If Yes, please explain: I had recent MRIs and CAT scans. How long have you had these symptoms? Years How do these conditions impair your daily activities? Cannot lift anything over 10 lbs. Other treatments you have used: Drugs which I've since stopped because they weren't working. What makes your symptoms better? Rest. What makes your symptoms worse? Activities especially lifting. Are you seeking treatment for pain? Yes PLEASE COMPLETE IF YOU ARE SEEKING TREATMENT FOR PAIN: Please describe your pain level (0 no pain at all to 10 being the worst pain): 4 Pain character: Moves from place to place Intermittent Specify how frequently: Every day Pain quality: Dull Stabbing Pain worse with: Movement Please be specific: Pain worse in the early mornings. Pain better with: Movement Please be specific: Pain lessens after walking for about an hour How did the pain start? Abruptly How often are you experiencing pain: Everyday Was pain caused by an injury? Yes If Yes, what and when? Pain began several years ago after working at a job that required heavy lifting. At that point, I was diagnosed, by an Orthopedic Surgeon, with an inoperable bulging disk. After a recent fall the pain returned as well a sciatica. Current and/or prior treatment for this pain: Blocks/Injections Are you taking any pain medication (prescriptions and over the counter): Yes If Yes, name and dosage: Duloxetine: One, 60 mg in the am. One, 30 mg in the pm. Using the pictures below, indicate directly on the figures the area(s) where you are experiencing pain and numbness. Myc Document/Image Upload Question 11/05/2023 10:48 AM EDT - Filed by Patient Photo ID If there are images or documents you'd like to share with your provider during your visit, you may upload up to a total of five files. For body images use the pencil icon to label your image. When labeling the image, please use the following format: The name of the body part followed by the side. For example, Back of Right Forearm or Lower Left Leg. Previous Responses Myc Provider Understanding Current Health Wellness Question 08/20/2023 9:39 AM EDT - Filed by Patient These questions will help my provider understand my health Agree OBJECTIVE: Visual Inspection Discoloration: none Edema: none Gait/Ambulation: unbalanced due to drop foot Castillo: ok Qi/Patient vitality: ok Alert, No distress, and Cooperative Well-Groomed and Pleasant Normal Imaging reports Images on file See EPIC Images have been reviewed Yes ASSESSMENT Patient presents with signs and symptoms consistent with the diagnosis. Patient would benefit from acupuncture therapy to address listed deficiencies and return to PLOF. Pt was educated on symptoms, prognosis, plan of care and activity modifications. Pt verbalized understanding and agreed to begin care. TCM Pattern: Chronic low back pain without sciatica, unspecified back pain laterality (primary encounter diagnosis) due to qi stagnation and blood stasis TCM Treatment Principle: regulate qi and invigorate blood to relieve pain PLAN OF CARE Counseled patient on risks of acupuncture treatment including pain, infection, bleeding, and no relief of pain. The patient was positioned comfortably. There was no evidence of infection at the site of needle insertions. Counseled patient on differences between Shared Acupuncture Medical Appointment and Private Visit follow-ups. Patient is a suitable candidate for Shared Acupuncture Medical Appointments (EDWIN): No Recommended Treatment Schedule: acupuncture 4-5 sessions until re-eval Patient will then be re-evaluated for therapeutic effect. Clinical Objective: Therapeutic Informed Consent Capture: RBAPC and equipment discussed with patient and Informed Consent was gathered. Intake form located in patient file. Acupuncture Treatment: Treatment/Needle Set 1, Prone: Points: perispinal L4/5, 5/S1, UB24, UB25, 5 points on each hips 15 minutes face to face with patient for set 1 Treatment/Needle Set 2, Prone: Points: UB40, KD3, GB34, UB60, KD10 10 minutes face to face with patient for set 2 Carl[place] were retained for 30 minutes # of needles inserted: 30 # of needles withdrawn: 30 Adjunct techniques used: TDP Infrared Heat Lamp- Applied to lower back and knees Patient tolerated the procedure well. UNIVERSAL PROTOCOL / SAFETY CHECKLIST Procedure to be Performed: Acupuncture Sign In: A Moment of CARE was completed. Personnel directly involved with the procedure wore the appropriate PPE (Personal Protective Equipment). Patient/Surrogate Stated/Verified: PATIENT VERIFIED(optional for EMERGENT procedures): Patient name, Date of , Relevant allergies, and The intended procedure Time Out Communication: Intended patient and procedure match the source documents. Consent documented and matches the intended procedure. Sign Out: SIGN OUT (optional for EMERGENT procedures): All instruments, equipment, possible retained foreign bodies accounted for. Jose J Chase Provider Name: Jose J Chase 40 Total minutes face to face time spent with patient Acupuncture and Micronesian herbal therapy are not a substitute for conventional medical diagnosis and treatment. Patient agrees that either: 1. A diagnostic exam has been performed by a physician or chiropractor within the last six months regarding the condition for which they are seeking acupuncture treatment. or 2. If no diagnostic exam by a physician or chiropractor has been done within the last six months regarding the condition for which patient is seeking treatment, the Piano Refinisher, per [place] Law, recommends that this diagnostic exam be performed. documented in this encounter [facility] 11-10-2023 Telephone encounter Note Patient notified of coumadin instructions and verbalized understanding. [facility] 11-10-2023 Miscellaneous Notes Patient notified of coumadin instructions and verbalized understanding. Continue with Coumadin dosage change recheck INR and check INR 2 weeks Last INR: INR Home CoaguChek 2.5 11/10/2023 Current dose of coumadin is: 5 mg Tues and Thurs, all other days 7.5. Last date of dose change: 10/23/23. Previous INR (date and result): 10/23/23 1.7 INR Goal 2.0 to 3.0 Additional Clinical Information or narrative: yes: Diet is always screwed up. Denies, bleeding, bruising, no alcohol or ATB. Has not missed any doses. Please advise pt. Okay to leave a detailed message on pt's phone instructions. documented in this encounter [facility] 11-10-2023 Telephone encounter Note Continue with Coumadin dosage change recheck INR and check INR 2 weeks [facility] Work Phone: 11-10-2023 Telephone encounter Note Last INR: INR Home CoaguChek 2.5 11/10/2023 Current dose of coumadin is: 5 mg Tues and Thurs, all other days 7.5. Last date of dose change: 10/23/23. Previous INR (date and result): 10/23/23 1.7 INR Goal 2.0 to 3.0 Additional Clinical Information or narrative: yes: Diet is always screwed up. Denies, bleeding, bruising, no alcohol or ATB. Has not missed any doses. Please advise pt. Okay to leave a detailed message on pt's phone instructions. [facility] 10-30-2023 Telephone encounter Note PATIENT NOTIFIED OF SAME. [facility] 10-30-2023 Miscellaneous Notes PATIENT NOTIFIED OF SAME. Continue with current dose of coumadin and repeat INR in 10 days. Patient called to give results of INR from today 10/29 INR is 2.0 Coumadine dose is 7.5mg everyday but Tue and Thur 5mg He also said he has not drank much wine lately Please advise documented in this encounter [facility] 10-30-2023 Telephone encounter Note Continue with current dose of coumadin and repeat INR in 10 days. [facility] 10-30-2023 Telephone encounter Note Patient called to give results of INR from today 10/29 INR is 2.0 Coumadine dose is 7.5mg everyday but Tue and Thur 5mg He also said he has not drank much wine lately Please advise [facility] Work Phone: 10-29-2023 Telephone encounter Note The patient has been identified by name and date of : Yes Caregiver verified no other encounters exist for this prescription request: Yes Caregiver confirmed with patient/requestor that no other refills are due, in the near future, with this provider at this time: Yes The last office visit in the department: 09/15/2023 Does the patient have a future office visit with this provider/department: 02/26/2024 Requested Prescriptions Pending Prescriptions Disp Refills famotidine (PEPCID) 40 mg tablet 90 tablet 1 Sig: Take 1 tablet by mouth once daily as needed. Antoinette Meadows RN October 29, 2023 3:28 PM [facility] 10-29-2023 Miscellaneous Notes The patient has been identified by name and date of : Yes Caregiver verified no other encounters exist for this prescription request: Yes Caregiver confirmed with patient/requestor that no other refills are due, in the near future, with this provider at this time: Yes The last office visit in the department: 09/15/2023 Does the patient have a future office visit with this provider/department: 02/26/2024 Requested Prescriptions Pending Prescriptions Disp Refills famotidine (PEPCID) 40 mg tablet 90 tablet 1 Sig: Take 1 tablet by mouth once daily as needed. Antoinette Meadows RN October 29, 2023 3:28 PM documented in this encounter [facility] 10-23-2023 Telephone encounter Note PATIENT NOTIFIED OF SAME. Tracker has been updated. [facility] 10-23-2023 Miscellaneous Notes PATIENT NOTIFIED OF SAME. Tracker has been updated. Have him increase his dose to taking 7.5 mg on Mon, WED, Fri, Sat and Sun and then the 5 mg only on and Th., typically duloxetine would make the INR run a little higher but I suspect him cutting out some of the other medications has resulted in the INR drifting down. Have him repeat his INR in 1 week. Patient calling with message for Zeny Lam CNP: Patient states he noted today's INR result of 1.7. Reports he has been taking Coumadin 7.5 mg on 4 days a week (Fri, Sat, Sun, and Mon) then 5 mg other days (, Thu, Th). No unusual bleeding or bruising, no diet changes, no recent antibiotic use. Had wine on 10/19/23. Patient states he has noticed a trend of his INR decreasing and wonders if it has anything to do with the duloxetine he takes? He feels his coumadin needs increased also. Please advise patient. Thank you. documented in this encounter [facility] 10-23-2023 Telephone encounter Note Have him increase his dose to taking 7.5 mg on Mon, WED, Fri, Sat and Sun and then the 5 mg only on Tu and Thurs., typically duloxetine would make the INR run a little higher but I suspect him cutting out some of the other medications has resulted in the INR drifting down. Have him repeat his INR in 1 week. [facility] 10-23-2023 Telephone encounter Note Patient calling with message for Zeny Lam CNP: Patient states he noted today's INR result of 1.7. Reports he has been taking Coumadin 7.5 mg on 4 days a week (Fri, Sat, Sun, and Mon) then 5 mg other days (, Thu, Th). No unusual bleeding or bruising, no diet changes, no recent antibiotic use. Had wine on 10/19/23. Patient states he has noticed a trend of his INR decreasing and wonders if it has anything to do with the duloxetine he takes? He feels his coumadin needs increased also. Please advise patient. Thank you. [facility] 10-06-2023 Telephone encounter Note The patient has been identified by name and date of : Yes Caregiver verified no other encounters exist for this prescription request: Yes Caregiver confirmed with patient/requestor that no other refills are due, in the near future, with this provider at this time: Yes The last office visit in the department: 09/15/2023 Does the patient have a future office visit with this provider/department: Yes 02/26/2024 Requested Prescriptions Pending Prescriptions Disp Refills DULoxetine (CYMBALTA) 30 mg capsule 30 capsule 2 Sig: Take 1 capsule by mouth once daily. In the evening Tammie Munguia RN October 06, 2023 4:48 PM [facility] 10-06-2023 Miscellaneous Notes The patient has been identified by name and date of : Yes Caregiver verified no other encounters exist for this prescription request: Yes Caregiver confirmed with patient/requestor that no other refills are due, in the near future, with this provider at this time: Yes The last office visit in the department: 09/15/2023 Does the patient have a future office visit with this provider/department: Yes 02/26/2024 Requested Prescriptions Pending Prescriptions Disp Refills DULoxetine (CYMBALTA) 30 mg capsule 30 capsule 2 Sig: Take 1 capsule by mouth once daily. In the evening Tammie Munguia RN October 06, 2023 4:48 PM documented in this encounter [facility] 10-05-2023 Telephone encounter Note Patient notified of results, verbalizes understanding of instructions. Ramila Zapata LPN [facility] 10-05-2023 Miscellaneous Notes Patient notified of results, verbalizes understanding of instructions. Ramila Zapata LPN Okay to increase coumadin dose to 7.5 mg on 4 days a week (Thu, Thu, Thu, and Thu) then 5 mg other days (, Thu, ). Repeat INR in 2 weeks. Last INR: INR Home CoaguChek 1.9 10/05/2023 Current dose of coumadin is: 7.5 Thursday, Thursday, and Thursday; 5 mg all other days. Last date of dose change: 08/14/2023. Previous INR (date and result): 2.1 09/23/2023 Additional Clinical Information or narrative: Patient Normally tests INR on Thursday or Thursday. Patient is concerned that he tested today on a Thursday and INR is 1.9 and this is after taking 7.5 mg on Thursday, Thursday, and Thursday. Patient asking if provider thinks Coumadin should be increased to 7.5 on another day? Patient reports that he has had no missed doses. Patient has had no alcohol and no diet changes. Patient has not signs or symptoms of bleeding or bruising. Please review and advise, Tammie Munguia RN documented in this encounter [facility] 10-05-2023 Telephone encounter Note Okay to increase coumadin dose to 7.5 mg on 4 days a week (Thu, Thu, Thu, and Thu) then 5 mg other days (, Thu, ). Repeat INR in 2 weeks. [facility] 10-05-2023 Telephone encounter Note Last INR: INR Home CoaguChek 1.9 10/05/2023 Current dose of coumadin is: 7.5 Thursday, Thursday, and Thursday; 5 mg all other days. Last date of dose change: 08/14/2023. Previous INR (date and result): 2.1 09/23/2023 Additional Clinical Information or narrative: Patient Normally tests INR on Thursday or Thursday. Patient is concerned that he tested today on a Thursday and INR is 1.9 and this is after taking 7.5 mg on Thursday, Thursday, and Thursday. Patient asking if provider thinks Coumadin should be increased to 7.5 on another day? Patient reports that he has had no missed doses. Patient has had no alcohol and no diet changes. Patient has not signs or symptoms of bleeding or bruising. Please review and advise, Tammie Munguia RN [facility] 09-25-2023 Telephone encounter Note Pt stated that [employer] has sent approval for accupunture. He states billing told him to call [employer] [employer] to explain the CPT codes. Billing keeps giving him the run around. States the exact same thing happened [address] Martinez. Pt states Zeny is aware of situation. Patient is asking if Zeny can call [employer]. Number is [phone]. [facility] 09-25-2023 Miscellaneous Notes Pt stated that [employer] has sent approval for accupunture. He states billing told him to call [employer] to explain the CPT codes. Billing keeps giving him the run around. States the exact same thing happened [address] Martinez. Pt states Zeny is aware of situation. Patient is asking if Zeny can call [facility] [facility]. Number is [phone]. documented in this encounter [facility] 09-25-2023 Telephone encounter Note Approval received. [facility] 09-25-2023 Miscellaneous Notes Approval received. Patient calling wanted to let Zeny know that she should be getting an approval letter for his acupuncture. Patient said not sure if he will be able to have it done, having issues with his insurance. documented in this encounter [facility] 09-24-2023 Telephone encounter Note Patient calling wanted to let Zeny know that she should be getting an approval letter for his acupuncture. Patient said not sure if he will be able to have it done, having issues with his insurance. [facility] 09-23-2023 Telephone encounter Note Noted and agree with same dose and repeat in 2 weeks. [facility] 09-23-2023 Miscellaneous Notes Noted and agree with same dose and repeat in 2 weeks. Last INR: INR Home CoaguChek 2.1 09/23/2023 Current dose of coumadin is: 7.5 mg Thursday, Thursday, Thursday, 5 mg all other days. Last date of dose change: 08-14-23 Previous INR (date and result): 09/11/2023 2.1 Additional Clinical Information or narrative: yes: No unusual bleeding or bruising, no diet changes, no missed doses, no recent ATB. Patient states if provider is going to advise stay on same dose and re-test in 2 weeks, no need to call him because that is what he is going to do unless he hears otherwise. Antoinette Meadows RN documented in this encounter [facility] 09-23-2023 Telephone encounter Note Last INR: INR Home CoaguChek 2.1 09/23/2023 Current dose of coumadin is: 7.5 mg Thursday, Thursday, Thursday, 5 mg all other days. Last date of dose change: 08-13- Previous INR (date and result): 09/11/2023 2.1 Additional Clinical Information or narrative: yes: No unusual bleeding or bruising, no diet changes, no missed doses, no recent ATB. Patient states if provider is going to advise stay on same dose and re-test in 2 weeks, no need to call him because that is what he is going to do unless he hears otherwise. Antoinette Meadows, RN [facility] 09-22-2023 Telephone encounter Note Letter faxed back to [facility] asking them to recheck their records as listed NPI is correct as verified by providers office. YENNY Abdi [facility] 09-22-2023 Miscellaneous Notes Letter faxed back to [facility] asking them to recheck their records as listed NPI is correct as verified by providers office. YENNY Abdi Nurse returned call and stated providers NPI is [id number]. YENNY Abdi TC to ALAYNA Chase's office at [phone] with no answer. Left detailed VM for nurse to return call to our office to provide NPI number as requested by insurance. YENNY Abdi Rich is trying to get acupuncture approved through his insurance, they are requesting the NPI for the provider performing the procedure. Apparently the NPI I was able to find is not correct. He is going to see ALAYNA Chase, CALDERON marrero at [facility] located at [facility]. [address] [place] [address], and , on 11/12/2023 at 1:00 pm. Can we please see if we can get his NPI number for the letter to insurance. The number I was told is incorrect is: documented in this encounter [facility] 09-22-2023 Telephone encounter Note Nurse returned call and stated providers NPI is [id number]. YENNY Abdi [facility] 09-22-2023 Telephone encounter Note TC to ALAYNA Chase's office at [phone] with no answer. Left detailed VM for nurse to return call to our office to provide NPI number as requested by insurance. YENNY Abdi [facility] 09-22-2023 Telephone encounter Note Rich is trying to get acupuncture approved through his insurance, they are requesting the NPI for the provider performing the procedure. Apparently the NPI I was able to find is not correct. He is going to see ALAYNA Chase LA c at [facility] located at [facility]. [address] [place] [address], and , on 11/12/2023 at 1:00 pm. Can we please see if we can get his NPI number for the letter to insurance. The number I was told is incorrect is: [facility] 09-16-2023 Telephone encounter Note Updated letter has been faxed to [employer]. [facility] 09-16-2023 Miscellaneous Notes Updated letter has been faxed to [employer]. Please see TE dated 09/10, patient requesting office to not speak to [employer] [facility] until after he speaks with Lauryn Lam at appointment today, 09/14. YENNY Abdi Letter was sent to [employer] but a fax was sent back from [employer] stating that there are illegible and/or missing items with an extensive list of items they are requesting. PCP is out of the office this week and will have to wait for her return to complete a new letter with needed items requested. Detailed message was left for patient as to same. Pt is calling in regards to letter written 09/03. Pt reports [employer] is stating they did not get the letter. Pt requested this nurse to read letter. Pt is asking for the following to be added as a header at the beginning of the letter: Out of Network Referral Authorization for Back Pain for Alfreda Brooks [id number] Call pt to let him know if this can or cannot be added to the letter. Advised pt Zeny Lam is out of the office until next week. Pt is asking if her nurse can add this to the top of the letter. Brandi Lambert LPN documented in this encounter [facility] 09-15-2023 Note Addended by: ZENY LAM on: 09/15/2023 04:33 PM Modules accepted: Orders [facility] 09-15-2023 Miscellaneous Notes Addended by: ZENY LAM on: 09/15/2023 04:33 PM Modules accepted: Orders documented in this encounter [facility] 09-15-2023 Telephone encounter Note Yes, I will be ordering those with his visit from today. [facility] 09-15-2023 Miscellaneous Notes Yes, I will be ordering those with his visit from today. Patient is asking about labs to complete prior to appointment in 02/2024. documented in this encounter [facility] 09-15-2023 Telephone encounter Note Patient is asking about labs to complete prior to appointment in 02/2024. [facility] 09-15-2023 History of Presen t illness Narrative SUBJECTIVE Alex Brooks is a 78 year old male here today for a check up on his medical problems. Chief Complaint Patient presents with: Physical: with 6 month follow up HPI Alex Brooks is a 78 year old male. He is an established patient. Here today for routine follow up. Seen with non-pharm pain mgmt with Dr. Moraes. He was interested in doing acupuncture for his back pain since that was recommended, working with insurance on this. Back pain slowly improving, down to 2-3/10. Has been told previously he has a bulging disc, orthopedic surgeon, Dr. Orozco evaluated it and said he is not ideal for operating on for this matter. Prior compression fracture continues to heal. Cymbalta is helpful for pain control. Had labs done prior to today. 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 His medications were reviewed today and his list is now up to date. Medications Current Outpatient Medications Medication Sig Olopatadine (PATADAY ONCE DAILY RELIEF) 0.2 % drop Use 1 Drop in both eyes once daily. oxyCODONE-acetaminophen (PERCOCET) 5-325 mg tablet Take 1 tablet by mouth every 6 hours as needed for pain for up to 7 days. tiZANidine (ZANAFLEX) 4 mg tablet Take 1-2 tablets by mouth every 6 hours as needed. pantoprazole DR (PROTONIX) 40 mg tablet take 1 tablet by mouth once daily ON AN EMPTY STOMACH 30 MINUTES PRIOR TO A MEAL potassium chloride (KLOR-CON 10) 10 mEq tablet Take 1 tablet by mouth two times a day. famotidine (PEPCID) 40 mg tablet Take 1 tablet by mouth once daily as needed. lisinopril (ZESTRIL) 20 mg tablet Take 2 tablets by mouth once daily. Adjust dose as directed based on blood pressure readings LORazepam (ATIVAN) 2 mg tab Take 1 tablet by mouth at bedtime as needed (insomnia) for up to 180 days. warfarin (COUMADIN) 5 mg tablet Take 1.5 tablets on Sundays and 2 tablets Thursday through Saturdays rosuvastatin (CRESTOR) 40 mg tablet Take 1 tablet by mouth once daily. hydrocortisone 2.5 % cream Seldom vitamin B complex (B COMPLEX 1 ORAL) magnesium oxide 400 mg magnesium cap Take 1 capsule by mouth once daily. (Patient taking differently: Take 500 mg by mouth two times a day. 500mg daily) SAW PALMETTO ORAL Take 400 mg by mouth twice daily. coenzyme Q10 (COENZYME Q-10) 100 mg cap capsule Take 400 mg by mouth once daily. Cyanocobalamin 2,500 mcg subl Dissolve under the tongue twice daily. calcium, elemental, tab Take 600 mg by mouth twice daily. multivitamin (SOFYA MULTIVITAMIN) tablet Take 1 tablet by mouth once daily. DULoxetine (CYMBALTA) 60 mg capsule Take 1 capsule by mouth once daily. In the morning. DULoxetine (CYMBALTA) 30 mg capsule Take 1 capsule by mouth once daily. In the evening Back Brace (BACK SUPPORT S/M) [facility] Use as instructed. No current facility-administered medications for this visit. ALLERGIES Allergen Reactions Cyclobenzaprine Other: See Comments Double vision Gabapentin Intolerance Keflex [Cephalexin] Rash ACTIVE PROBLEM LIST Compression Fracture of L1 Lumbar Vertebra (Hcc) - 07/15/2023 Sciatic Leg Pain - 07/15/2023 Bilateral Carotid Artery Stenosis - 06/15/2023 Acute Gastritis Without Hemorrhage - 04/20/2023 Spinal Stenosis of Lumbar Region - 09/24/2022 Pad (Peripheral Artery Disease) ([facility]) - 08/16/2021 Kidney Insufficiency - 04/04/2021 Posterior Vitreous Detachment of Right Eye - 06/19/2020 Age-Related Nuclear Cataract of Right Eye - 06/19/2020 Balance Problem - 03/12/2020 History of Left-Sided Carotid Endarterectomy - 06/10/2019 Colonic Polyp - 11/29/2018 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 Hypercoag studies all have been neg as of 05/2014. Bro w/hypercoag W/U previously as well. Gerd (Gastroesophageal Reflux Disease) - 02/17/2014 Htn (Hypertension) - 07/02/2009 Comment: 03/24/2023: Home BP Cuff Validated. Home BP: 114/71 93 Office BP: 100/56 96 Lumbago - 02/23/2009 Impaired Fasting Glucose - 10/11/2008 Comment: Under 110; See labs 10/12 Hereditary and Idiopathic Peripheral Neuropathy - 10/05/2008 Mixed Hyperlipidemia - 10/05/2008 Benign Prostatic Hyperplasia With Nocturia - 09/04/2008 Insomnia, unspecified - 09/04/2008 Social History Tobacco Use Smoking status: Former Packs/day: 1.00 Years: 20.00 Additional pack years: 0.00 Total pack years: 20.00 Types: Cigarettes Quit date: 04/06/1980 Years since quittin.4 Smokeless tobacco: Never Vaping Use Vaping Use: Never used Substance Use Topics Alcohol use: Not Currently Comment: stopped 07/19/2022 Drug use: Yes Types: Marijuana Review of Systems Constitutional: Negative. Respiratory: Negative. Cardiovascular: Negative. Musculoskeletal: Positive for back pain. OBJECTIVE BP 110/60 Pulse 89 Ht 6' 1 (1.85m) Wt 174 lb (78.9kg) SpO2 97% BMI 22.96 kg/(m^2). Physical Exam Vitals and nursing note reviewed. Constitutional: General: He is awake. He is not in acute distress. Appearance: Normal appearance. He is well-developed and well-groomed. He is not ill-appearing, toxic-appearing or diaphoretic. HENT: Head: Normocephalic. Right Ear: External ear normal. Left Ear: External ear normal. Nose: Nose normal. Eyes: General: Vision grossly intact. Conjunctiva/sclera: Conjunctivae normal. Pupils: Pupils are equal, round, and reactive to light. Neck: Vascular: No JVD. Trachea: Trachea normal. Cardiovascular: Rate and Rhythm: Normal rate and regular rhythm. Pulses: Normal pulses. Heart sounds: Normal heart sounds. No murmur heard. Pulmonary: Effort: Pulmonary effort is normal. No accessory muscle usage, prolonged expiration or respiratory distress. Breath sounds: Normal breath sounds. Musculoskeletal: Cervical back: Neck supple. Skin: General: Skin is warm and dry. Capillary Refill: Capillary refill takes less than 2 seconds. Neurological: General: No focal deficit present. Mental Status: He is alert and oriented to person, place, and time. Mental status is at baseline. Psychiatric: Attention and Perception: Attention and perception normal. Mood and Affect: Mood and affect normal. Speech: Speech normal. Behavior: Behavior normal. Behavior is cooperative. Thought Content: Thought content normal. Cognition and Memory: Cognition and memory normal. Judgment: Judgment normal. ASSESSMENT/PLAN: 1. Chronic bilateral low back pain with bilateral sciatica - ICD9: 724.2, 724.3, 338.29, ICD10: M54.42, M54.41, G89.29 (primary diagnosis) Chronic low back pain that extends in to the posterior upper leg at times. Would like to try acupuncture for this. - DULOXETINE 60 MG CAPSULE,DELAYED RELEASE - DULOXETINE 30 MG CAPSULE,DELAYED RELEASE 2. Compression fracture of L1 vertebra with routine healing, subsequent encounter - ICD9: V54.17, ICD10: S32.010D Improving. - DULOXETINE 60 MG CAPSULE,DELAYED RELEASE - DULOXETINE 30 MG CAPSULE,DELAYED RELEASE 3. Mixed hyperlipidemia - ICD9: 272.2, ICD10: E78.2 - Controlled - Counseled on healthy diet and regular exercise 4. Primary hypertension - ICD9: 401.9, ICD10: I10 - Controlled - Continue current medications - Recommend home blood pressure monitoring, to bring results to next visit - Encouraged sodium restriction, DASH or Mediterranean diet - Recommend regular aerobic exercise 5. Kidney insufficiency - ICD9: 593.9, ICD10: N28.9 Stable, labs are looking good. 6. Impaired fasting glucose - ICD9: 790.21, ICD10: R73.01 Stable. 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) - ICD9: 415.19, ICD10: I26.99 Continues on coumadin. 9. Vitamin D deficiency - ICD9: 268.9, ICD10: E55.9 - VITAMIN D 25 HYDROXY 10. Encounter for therapeutic drug monitoring - ICD9: V58.83, ICD10: Z51.81 - COMPLETE BLOOD COUNT AND DIFFERENTIAL - COMPREHENSIVE METABOLIC PANEL - MAGNESIUM Portions of this note have been entered by ancillary staff. I have reviewed and when necessary edited, so that they are an adequate record of my encounter with this patient Please note that parts of this document were created using voice recognition software and therefore may contain grammatical errors. Patient verbalizes understanding of instructions from today's visit and in agreement with treatment plan. Questions answered. Agrees to call the office if questions, concerns of issues with acute symptoms not improving or if they worsen. See diagnoses and orders for additional plan(s). Allergies and medications were reviewed, list was updated, and refills given if needed. Past medical, surgical, social, and family history reviewed and updated as appropriate. Encouraged proper diet & exercise as well as compliance with taking medications. Age-appropriate health preventative measures were discussed. Return in about 5 months (around 02/22/2024) for Follow up on chronic conditions and medications.. Zeny Lam APRN-KAYLA documented in this encounter [facility] 09-15-2023 Telephone encounter Note Noted. [facility] 09-15-2023 Miscellaneous Notes Noted. Patient wants message sent to Gabby, letting you know, not to respond to [facility] about accupuncture, until he speaks with Zeny at next appt. documented in this encounter [facility] 09-15-2023 Telephone encounter Note Patient is coming in today for an OV so we will address this then. [facility] 09-15-2023 Miscellaneous Notes Patient is coming in today for an OV so we will address this then. Please review below and advise if provider wanting to change dosage as recommended by pharmacy. Do not see in chart that fax was received. YENNY Abdi Patient calls to report that Kanika will be sending over a fax in regards to his duloxetine 40 mg. Patient has a $90 co-pay for this medication and patient asked pharmacy recommendation to reduce cost. Ky Teodora is recommending to switch him back to 60 mg with a 30 mg capsule (one in the morning and one in the evening). Patient aware Zeny is out of office until next week and would like to wait for her to make the decision on whether or not it is ok to switch to that. Forwarding to garryowen to notify paperwork is being faxed. Antoinette Meadows RN documented in this encounter [facility] 09-15-2023 Telephone encounter Note Please see TE dated 09/10, patient requesting office to not speak to [facility] until after he speaks with Lauryn Lam at appointment today, 09/14. YENNY Abdi [facility] 09-15-2023 Telephone encounter Note Please review below and advise if provider wanting to change dosage as recommended by pharmacy. Do not see in chart that fax was received. YENNY Abdi [facility] 09-11-2023 Telephone encounter Note No need to call patient per note below. Osei Maciel LPN [facility] 09-11-2023 Miscellaneous Notes No need to call patient per note below. Osei Maciel LPN Okay to stay on same dose as planned by patient as noted below and discuss with Zeny at follow up appointment. Last INR: INR Home CoaguChek 2.1 09/11/2023 Current dose of coumadin is: 7.5 mg FSS, 5 mg all other days. Last date of dose change: 08-14-23 Previous INR (date and result): 09-04-23 2.0 Additional Clinical Information or narrative: yes: No unusual bleeding or bruising, no diet changes, no missed doses, no recent AB. Patient reports he and Zeny discussed the possibility of duloxetine hcl causing the lower INR readings. States he doesn't want to stop taking it b/c it works well. Patient states if provider is going to advise stay on same dose and test in 2 weeks, no need to call him because that is what he is going to do anyway (unless provider wants something different). documented in this encounter [facility] 09-11-2023 Telephone encounter Note Okay to stay on same dose as planned by patient as noted below and discuss with Zeny at follow up appointment. [facility] Work Phone: 09-11-2023 Telephone encounter Note Patient wants message sent to Gabby, letting you know, not to respond to [facility] about accupuncture, until he speaks with Zeny at next appt. [facility] 09-11-2023 Telephone encounter Note Last INR: INR Home CoaguChek 2.1 09/11/2023 Current dose of coumadin is: 7.5 mg FSS, 5 mg all other days. Last date of dose change: 08-14-23 Previous INR (date and result): 09-04-23 2.0 Additional Clinical Information or narrative: yes: No unusual bleeding or bruising, no diet changes, no missed doses, no recent AB. Patient reports he and Zeny discussed the possibility of duloxetine hcl causing the lower INR readings. States he doesn't want to stop taking it b/c it works well. Patient states if provider is going to advise stay on same dose and test in 2 weeks, no need to call him because that is what he is going to do anyway (unless provider wants something different). [facility] 09-08-2023 Telephone encounter Note Letter was sent to [facility] but a fax was sent back from [facility] stating that there are illegible and/or missing items with an extensive list of items they are requesting. PCP is out of the office this week and will have to wait for her return to complete a new letter with needed items requested. Detailed message was left for patient as to same. [facility] 09-08-2023 Telephone encounter Note Pt is calling in regards to letter written 09/03. Pt reports [facility] [employer] is stating they did not get the letter. Pt requested this nurse to read letter. Pt is asking for the following to be added as a header at the beginning of the letter: Out of Network Referral Authorization for Back Pain for Alfreda Brooks [id number] Call pt to let him know if this can or cannot be added to the letter. Advised pt Zeny Lam is out of the office until next week. Pt is asking if her nurse can add this to the top of the letter. Brandi Lambert LPN [facility] 09-07-2023 Telephone encounter Note Patient calls to report that Kanika will be sending over a fax in regards to his duloxetine 40 mg. Patient has a $90 co-pay for this medication and patient asked pharmacy recommendation to reduce cost. Ky Baconmaria alejandra is recommending to switch him back to 60 mg with a 30 mg capsule (one in the morning and one in the evening). Patient aware Zeny is out of office until next week and would like to wait for her to make the decision on whether or not it is ok to switch to that. Forwarding to garryowen to notify paperwork is being faxed. Antoinette Meadows RN [facility] 09-07-2023 Telephone encounter Note Pharmacy request denied. Patient needs to contact office for refills. Tammy Wang MA [facility] 09-07-2023 Miscellaneous Notes Pharmacy request denied. Patient needs to contact office for refills. Tammy Wang MA documented in this encounter [facility] 09-04-2023 Telephone encounter Note Letter has been faxed to [facility] [phone]. [facility] 09-04-2023 Miscellaneous Notes Letter has been faxed to [facility] [phone]. Letter printed, please send or have him pick this up. Thanks. Spoke with patient and he stated that [facility] is asking for a Out of Network prior authorization letter to see an Out of network behavioral health clinician. In the letter it needs to state who he is seeing, when, where and why he is using this out of network provider. Patient is scheduled to see Walt Yang at [facility] on 11/12/2023 at 1:00 pm. Patient is requesting this provider as all other in network providers is too far travel to.He is familiar with [facility]. [facility] ph. [phone]. documented in this encounter [facility] 09-04-2023 Telephone encounter Note Letter printed, please send or have him pick this up. Thanks. [facility] 09-04-2023 Telephone encounter Note Spoke with patient and he stated that [facility] is asking for a Out of Network prior authorization letter to see an Out of network behavioral health clinician. In the letter it needs to state who he is seeing, when, where and why he is using this out of network provider. Patient is scheduled to see Walt Yang at [facility] on 11/12/2023 at 1:00 pm. Patient is requesting this provider as all other in network providers is too far travel to.He is familiar with [facility]. [facility] ph. [phone]. [facility] 09-04-2023 Telephone encounter Note PATIENT NOTIFIED OF SAME. [facility] 09-04-2023 Miscellaneous Notes PATIENT NOTIFIED OF SAME. Since we made adjustments in his duloxetine dose I would like to continue with his current coumadin dose and repeat the INR again in 2 weeks. Please let him know. Thanks Last INR: INR Home CoaguChek 2.0 09/04/2023 Current dose of coumadin is: 7.5mg Fri,Sat,and Sun. 5mg all other days. (Pt states he added the 7.5 mg on Fri) Last date of dose change: 08/14/23. Previous INR (date and result): 08/24/23, 2.2. Additional Clinical Information or narrative: yes: Patient denies any unusual bleeding or bruising, recent antibiotics, any missed doses, any diet changes. Pt states he did have a bottle of alcohol 2 days ago, which was the first in 13-14 weeks. documented in this encounter [facility] 09-04-2023 Telephone encounter Note Since we made adjustments in his duloxetine dose I would like to continue with his current coumadin dose and repeat the INR again in 2 weeks. Please let him know. Thanks [facility] 09-04-2023 Telephone encounter Note Last INR: INR Home CoaguChek 2.0 09/04/2023 Current dose of coumadin is: 7.5mg Fri,Sat,and Sun. 5mg all other days. (Pt states he added the 7.5 mg on Fri) Last date of dose change: 08/14/23. Previous INR (date and result): 08/24/23, 2.2. Additional Clinical Information or narrative: yes: Patient denies any unusual bleeding or bruising, recent antibiotics, any missed doses, any diet changes. Pt states he did have a bottle of alcohol 2 days ago, which was the first in 13-14 weeks. [facility] 09-04-2023 Telephone encounter Note PATIENT NOTIFIED OF SAME. [facility] 09-04-2023 Miscellaneous Notes PATIENT NOTIFIED OF SAME. Please let him know a new script has been sent for him to try Cymbalta 40 mg twice daily. Patient returned call. He is willing to try split dose of Cymbalta. He says the 60 mg dose he is currently taking is effective and seems to be lasting a little longer since his original message sent. [facility]. Molly Ann, RN LEFT MESSAGE FOR PATIENT TO CALL OFFICE. As for helping the duloxetine be more effective we could split the dosing and see if that is helpful. We could try something like taking 40 mg in the am and then 40 mg in the pm and see how that helps. Let me know what he thinks. Thanks. Spoke with patient and made him aware of Zeny's response. He did read where tizanidine can lower blood pressure. He states his blood pressure has been all over and will bring his cuffs in at next appointment to validate. He did mention that the tizanidine does make him sleepy and it was suggested to try taking it only at bedtime see how he does the following day as it is listed only as needed. Patient did mention that the duloxetine is effective but only lasting about 12 hours. Is there something different he can do with medication to last longer? Please return his call and let him know to check with his insurance for who would be covered near us for acupuncture, we can then send a referral. I am not aware of who to refer to for that. Typically insurance can provider a list of providers and locations that are near to him and in network. If he would like to restart the tizanidine then I am okay with that. Does he need a script sent? Rich called to state that he did have a good visit with Dr. Moraes on 08/27/23. It was suggested that he see an behavioral health clinician. He is asking if you know of any through [facility] closer to home? He checked with his insurance and it is a covered benefit. This can not be a needling therapist, apparently this is two different things. Dr. Moraes did agree that patient should not be taking percocet but did suggest that he resume the tizanidine. Patient is agreeable to this if this doesn't interfere with lorazepam or warfarin. Please advise. documented in this encounter [facility] 09-04-2023 Telephone encounter Note Please let him know a new script has been sent for him to try Cymbalta 40 mg twice daily. [facility] 09-02-2023 Telephone encounter Note Patient returned call. He is willing to try split dose of Cymbalta. He says the 60 mg dose he is currently taking is effective and seems to be lasting a little longer since his original message sent. [facility]. Molly Ann, RN [facility] 09-02-2023 Telephone encounter Note LEFT MESSAGE FOR PATIENT TO CALL OFFICE. [facility] 09-02-2023 Telephone encounter Note As for helping the duloxetine be more effective we could split the dosing and see if that is helpful. We could try something like taking 40 mg in the am and then 40 mg in the pm and see how that helps. Let me know what he thinks. Thanks. [facility] 09-02-2023 Telephone encounter Note This has been completed [facility] 09-02-2023 Miscellaneous Notes This has been completed Patient calling to ask if COVID Immunization reminder (Health Maintenance) can be removed from his medical record? He says he received the vaccine on 06/24/23 and it is on his immunization record. Molly Ann RN documented in this encounter [facility] 09-02-2023 Telephone encounter Note Patient calling to ask if COVID Immunization reminder (Health Maintenance) can be removed from his medical record? He says he received the vaccine on 06/24/23 and it is on his immunization record. Molly Ann RN [facility] 09-01-2023 Telephone encounter Note Spoke with patient and made him aware of Zeny's response. He did read where tizanidine can lower blood pressure. He states his blood pressure has been all over and will bring his cuffs in at next appointment to validate. He did mention that the tizanidine does make him sleepy and it was suggested to try taking it only at bedtime see how he does the following day as it is listed only as needed. Patient did mention that the duloxetine is effective but only lasting about 12 hours. Is there something different he can do with medication to last longer? [facility] 09-01-2023 Telephone encounter Note See other encounter. [facility] 05-28-2024 Miscellaneous Notes See other encounter. Patient reports he just saw a lady that told him to tell Zeny, to order him lidocaine solution to rub on his back. Send to [facility]. Patient was in a hurry and was talking to someone on another phone, so unable to get details. Patient said good bye quickly. Guessing the ov he had with Dr. Moraes today? Notes in epic. documented in this encounter [facility] 09-01-2023 Telephone encounter Note Please return his call and let him know to check with his insurance for who would be covered near us for acupuncture, we can then send a referral. I am not aware of who to refer to for that. Typically insurance can provider a list of providers and locations that are near to him and in network. If he would like to restart the tizanidine then I am okay with that. Does he need a script sent? [facility] 08-28-2023 Telephone encounter Note Rich called to state that he did have a good visit with Dr. Moraes on 08/27/23. It was suggested that he see an behavioral health clinician. He is asking if you know of any through [facility] closer to home? He checked with his insurance and it is a covered benefit. This can not be a needling therapist, apparently this is two different things. Dr. Moraes did agree that patient should not be taking percocet but did suggest that he resume the tizanidine. Patient is agreeable to this if this doesn't interfere with lorazepam or warfarin. Please advise. [facility] 08-27-2023 Telephone encounter Note Patient reports he just saw a lady that told him to tell Zeny, to order him lidocaine solution to rub on his back. Send to [facility]. Patient was in a hurry and was talking to someone on another phone, so unable to get details. Patient said good bye quickly. Guessing the ov he had with Dr. Moraes today? Notes in epic. [facility] 08-27-2023 Instructions Irene Moraes MD - 08/27/2023 2:15 PM EDT Will refer to acupuncture and physical therapy for dry needling RTC 3 months or as need documented in this encounter [facility] 08-27-2023 History of Presen t illness Narrative SUBJECTIVE: 77 year old male who presents for comprehensive problem evaluation. Consultation requested by Zeny Lam APRN.KAYLA for an opinion regarding chronic bilateral low back pain . My final recommendations will be communicated back to the requesting physician by way of shared medical record or letter via [place] mail. Rich fell in the kitchen and cracked his back 13 weeks ago. Was evaluated, no surgical intervention needed. For pain management was tried on Vicodin - did not help, Morphine was too much, can not take NSAID because he is on Coumadin. Then was started on Tizanidine and Percocet and told will take 3 months to heal. After 12 weeks he stopped the medications and his pain level did not change.Pain is 3-4/10 at the moment . At the beginning, pain was 10/10. In the morning his back is stiff and better throughout the day. Has tried asper cream that contain Lidocaine and that helps for a couple of hours. Take Duloxetine 60 mg daily that was started for the nerve pain.. He was referred to PT and PT told him his back is in bad shape and was told to go to ER right away. Went to ER, had MRI that shows 2 cracks on the back not one and was told that he is stable at the moment but referred to see a spine surgeon.Has appointment with spine surgeon in early September,. Has h/o building disk for which he had tried ablation 6 times - helped with pain after the first 5 procedures but not after the last one. Has HTN - take Lisinopril Has HLD - take Crestor Has BPH - take Flomax and emanuel Urias Has h/o PE 3 episodes and now is taking Coumadin - take 7.5 3 times a week and 5 mg 4 days a week. Last INR was 2.2. and is checked every 1-2 weeks and adjusted as needed. Supplements: CoQ10 Vit B12 2500 mcg Magnesium 500 mg daily MVI Vit B Complex Emanuel Urias for mild BPH 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 Carotid stenosis, left 02/21/2019 s/p CEA Closed nondisplaced fracture of distal phalanx of right great toe 01/16/2021 Colonic polyp 11/29/2018 DDD (degenerative disc disease), lumbar 03/08/2014 Elevated prostate specific antigen (PSA) 09/15/2016 Esophageal reflux Fall at home 01/05/2018 Right Rib Fracture Hypertension Hypertrophy of prostate with urinary obstruction and other lower urinary tract symptoms (LUTS) 09/04/2008 With mild night-time symptoms, exam ok as of 09/2008 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 Related to sugar? -- see fasting glucose 2008; Impaired fasting glucose 10/11/2008 Under 110; See labs 10/12 INSOMNIA NOS 09/04/2008 Doing well with as-needed benzo at night Left bundle branch block 05/28/2010 Lumbago 02/23/2009 Lumbosacral spondylosis without myelopathy 08/07/2011 Lung disease [place] Fever Macular hole left eye Macular hole of left eye 06/19/2020 Mixed hyperlipidemia 10/05/2008 Neuropathy Nuclear sclerosis of right eye PE (pulmonary embolism) 09/04/2011 Peripheral vascular disease (HCC) Perirectal abscess 12/12/2008 Postconcussion syndrome 11/11/2011 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) 05/08/2014 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 REMV CATARACT EXTRACAP,INSERT LENS Left TRANSCATH RETRIEVAL,PERCUT 09/20/2012 IVC filter retrieval TRIESENCE INTRAVITREAL INJECTION OS (LEFT EYE) 10/25/2013 VENA CAVA FILTER 09/26/2011 later removed Social History Tobacco Use Smoking status: Former Packs/day: 1.00 Years: 20.00 Additional pack years: 0.00 Total pack years: 20.00 Types: Cigarettes Quit date: 04/06/1980 Years since quittin.4 Smokeless tobacco: Never Vaping Use Vaping Use: Never used Substance Use Topics Alcohol use: Not Currently Comment: stopped 07/19/2022 Drug use: Yes Types: Marijuana FAMILY HISTORY Problem Relation Age of Onset Hypertension Mother (longevity on mom's side) Cataract Mother Coronary Artery Disease Father father who of sudden cardiac arrest age 74 Heart Father heart stopped Blood Disease Brother pulmonary embolism history No Known Problems Maternal Grandmother No Known Problems Maternal Grandfather No Known Problems Paternal Grandmother Heart Paternal Grandfather Colon Cancer Other no close relatives known Prostate Cancer Other none Emphysema Other none ALLERGIES Allergen Reactions Cyclobenzaprine Other: See Comments Double vision Gabapentin Intolerance Keflex [Cephalexin] Rash Current Outpatient Medications Medication Sig Dispense Refill tiZANidine (ZANAFLEX) 4 mg tablet Take 1-2 tablets by mouth every 6 hours as needed. [address] (PROTONIX) 40 mg tablet take 1 tablet by mouth once daily ON AN EMPTY STOMACH 30 MINUTES PRIOR TO A MEAL 90 tablet 1 potassium chloride (KLOR-CON 10) 10 mEq tablet Take 1 tablet by mouth two times a day. 180 tablet 3 DULoxetine (CYMBALTA) 60 mg capsule Take 1 capsule by mouth once daily. 30 capsule 4 famotidine (PEPCID) 40 mg tablet Take 1 tablet by mouth once daily as needed. 90 tablet 1 Back Brace (BACK SUPPORT S/M) [facility] Use as instructed. 1 Each 0 lisinopril (ZESTRIL) 20 mg tablet Take 2 tablets by mouth once daily. Adjust dose as directed based on blood pressure readings 90 tablet 3 LORazepam (ATIVAN) 2 mg tab Take 1 tablet by mouth at bedtime as needed (insomnia) for up to 180 days. 90 tablet 1 warfarin (COUMADIN) 5 mg tablet Take 1.5 tablets on Sundays and 2 tablets Thursday through Saturdays 240 tablet 1 rosuvastatin (CRESTOR) 40 mg tablet Take 1 tablet by mouth once daily. 90 tablet 3 hydrocortisone 2.5 % cream Seldom vitamin B complex (B COMPLEX 1 ORAL) magnesium oxide 400 mg magnesium cap Take 1 capsule by mouth once daily. (Patient taking differently: Take 500 mg by mouth two times a day. 500mg daily) SAW PALMETTO ORAL Take 400 mg by mouth twice daily. coenzyme Q10 (COENZYME Q-10) 100 mg cap capsule Take 400 mg by mouth once daily. Cyanocobalamin 2,500 mcg subl Dissolve under the tongue twice daily. 0 calcium, elemental, tab Take 600 mg by mouth twice daily. multivitamin (SOFYA MULTIVITAMIN) tablet Take 1 tablet by mouth once daily. 0 oxyCODONE-acetaminophen (PERCOCET) 5-325 mg tablet Take 1 tablet by mouth every 6 hours as needed for pain for up to 7 days. 28 tablet 0 tamsulosin (FLOMAX) 0.4 mg Take 1 capsule by mouth daily at bedtime. (Patient not taking: Reported on 08/25/2023) 90 capsule 0 LORazepam (ATIVAN) 1 mg tablet Take 2 tablets by mouth at bedtime as needed for up to 120 days. For insomnia 120 tablet 1 No current facility-administered medications for this visit. PHYSICAL EXAMINATION: VS: BP 119/81 Pulse 101 Ht 185.4 cm (6' 1) Wt 76.4 kg (168 lb 6.9 oz) BMI 22.22 kg/m GENERAL APPEARANCE -Well groomed, well appearing, no acute distress -Normal respirations on visual inspection. Gait - walk slowly, unstable gait, no support needed for walking to the office, but requested wheelchair due to long walk between clinic and parking at [address] [place]. -Awake, alert and oriented x 3, ASSESSMENT / PLAN: Low back pain and compression fracture on L1 - continue to use Aspercream , interested in acupuncture and dry needling - will refer to PT for dry needling and acupuncture. Discussed that can not do both treatments at the same time. Discussed to check with insurance if he is covered for acupuncture done by behavioral health clinician or need to see MD for that. 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 Will refer to acupuncture and physical therapy for dry needling RTC 3 months or as need I spent 60 minutes in the visit, with more than 50% of the total [id number] time of the visit in counseling / coordination of care. All of the patient's questions and concerns were addressed Follow up visit planning discussed Irene Moraes MD documented in this encounter [facility] 08-26-2023 Telephone encounter Note PATIENT NOTIFIED OF SAME. [facility] 08-26-2023 Miscellaneous Notes PATIENT NOTIFIED OF SAME. Please call patient and let him know the xray showed no acute issues but did note a small amount of fibrosis or scarring in an area, this is likely as we discussed from his prior Valley Fever infection and could be the cause of his shortness of breath, if he would get more shortness of breath or it becomes more bothersome we can do some further testing. documented in this encounter [facility] 08-26-2023 Telephone encounter Note Please call patient and let him know the xray showed no acute issues but did note a small amount of fibrosis or scarring in an area, this is likely as we discussed from his prior Valley Fever infection and could be the cause of his shortness of breath, if he would get more shortness of breath or it becomes more bothersome we can do some further testing. [facility] 08-25-2023 History of Presen t illness Narrative Radiology Service Progress Note PATIENT NAME: Alex Brooks DATE OF SERVICE: August 25, 2023 TIME: 10:26 AM PATIENT IDENTITY VERIFICATION COMPLETED USING TWO (2) IDENTIFIERS: Name and Date of confirmed by patient verbally. FALL SCREENING: Has the patient had 2 falls in the last year or 1 fall with injury or currently using an Ambulatory Assistive Device (Walker, Cane, Wheelchair, Crutches, etc.)? Yes, Patient High Risk for Falls What interventions were put in place to prevent falls during this visit? Offered Assistance with Transfers/Clothing and Instructed Patient to Remain Seated (Not on Exam Table) Until Exam PATIENT GENDER DATA: Male PATIENT RELEVANT IMPLANT DATA REVIEWED: Not Applicable PATIENT PRESENTS WITH AN IMPLANTABLE OR ATTACHED REGULATORY TECHNICIAN: No RADIOLOGY DEPARTMENT: General X-ray: Exam(s) Completed: Chest X-Ray PERIPHERAL IV DATA: Not applicable SIGNED BY: RT Boy(R) August 25, 2023 10:26 AM documented in this encounter [facility] 08-25-2023 History of Presen t illness Narrative SUBJECTIVE Alex Brooks is a 77 year old male here today for a check up on his medical problems. Chief Complaint Patient presents with: Recheck: medication follow up Weight Loss HPI Alex Brooks is a 77 year old male. He is an established patient. He is here today for a follow up. He continues to have some back pain issues. He has stopped regular use of his percocet and tizanidine since they were not overly helpful. Wondering who he should see for concerns of this being nerve pain related. He does currently follow with Dr. Leal for pain mgmt, and is seeing non-pharm pain mgmt later this week. On Cymbalta for pain, on coumadin so NSAIDs are contraindicated, allergy to Gabapentin, could try Lyrica or consider amitriptyline. Could also try a steroid taper. Was seen with PT. 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 Taking generic Flonase. Some post-nasal drip. Some shortness of breath with activities at times. Smoked, stopped in 79, smoked for 10 years. Prior valley fever. Seen with urology. Started on Flomax. Too effective. Had to stop. His medications were reviewed today and his list is now up to date. Medications Current Outpatient Medications Medication Sig oxyCODONE-acetaminophen (PERCOCET) 5-325 mg tablet Take 1 tablet by mouth every 6 hours as needed for pain for up to [address] (PROTONIX) 40 mg tablet take 1 tablet by mouth once daily ON AN EMPTY STOMACH 30 MINUTES PRIOR TO A MEAL potassium chloride (KLOR-CON 10) 10 mEq tablet Take 1 tablet by mouth two times a day. DULoxetine (CYMBALTA) 60 mg capsule Take 1 capsule by mouth once daily. famotidine (PEPCID) 40 mg tablet Take 1 tablet by mouth once daily as needed. lisinopril (ZESTRIL) 20 mg tablet Take 2 tablets by mouth once daily. Adjust dose as directed based on blood pressure readings LORazepam (ATIVAN) 2 mg tab Take 1 tablet by mouth at bedtime as needed (insomnia) for up to 180 days. warfarin (COUMADIN) 5 mg tablet Take 1.5 tablets on Sundays and 2 tablets Thursday through Saturdays rosuvastatin (CRESTOR) 40 mg tablet Take 1 tablet by mouth once daily. hydrocortisone 2.5 % cream Seldom vitamin B complex (B COMPLEX 1 ORAL) SAW THUY ORAL Take 400 mg by mouth twice daily. coenzyme Q10 (COENZYME Q-10) 100 mg cap capsule Take 400 mg by mouth once daily. Cyanocobalamin 2,500 mcg subl Dissolve under the tongue twice daily. calcium, elemental, tab Take 600 mg by mouth twice daily. multivitamin (SOFYA MULTIVITAMIN) tablet Take 1 tablet by mouth once daily. tiZANidine (ZANAFLEX) 4 mg tablet Take 1-2 tablets by mouth every 6 hours as needed. (Patient not taking: Reported on 08/25/2023) tamsulosin (FLOMAX) 0.4 mg Take 1 capsule by mouth daily at bedtime. (Patient not taking: Reported on 08/25/2023) Back Br[facility] ([facility] SUPPORT S/M) [facility] Use as instructed. LORazepam (ATIVAN) 1 mg tablet Take 2 tablets by mouth at bedtime as needed for up to 120 days. For insomnia magnesium oxide 400 mg magnesium cap Take 1 capsule by mouth once daily. (Patient taking differently: Take 500 mg by mouth two times a day. 500mg daily) No current facility-administered medications for this visit. ALLERGIES Allergen Reactions Cyclobenzaprine Other: See Comments Double vision Gabapentin Intolerance Keflex [Cephalexin] Rash ACTIVE PROBLEM LIST Compression Fracture of L1 Lumbar Vertebra ([facility]) - 07/15/2023 Sciatic Leg Pain - 07/15/2023 Bilateral Carotid Artery Stenosis - 06/15/2023 Acute Gastritis Without Hemorrhage - 04/20/2023 Spinal Stenosis of Lumbar Region - 09/24/2022 Pad (Peripheral Artery Disease) ([facility]) - 08/16/2021 Kidney Insufficiency - 04/04/2021 Posterior Vitreous Detachment of Right Eye - 06/19/2020 Age-Related Nuclear Cataract of Right Eye - 06/19/2020 Balance Problem - 03/12/2020 History of Left-Sided Carotid Endarterectomy - 06/10/2019 Colonic Polyp - 11/29/2018 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 Hypercoag studies all have been neg as of 05/2014. Bro w/hypercoag W/U previously as well. Gerd (Gastroesophageal Reflux Disease) - 02/17/2014 Htn (Hypertension) - 07/02/2009 Comment: 03/24/2023: Home BP Cuff Validated. Home BP: 114/71 93 Office BP: 100/56 96 Lumbago - 02/23/2009 Impaired Fasting Glucose - 10/11/2008 Comment: Under 110; See labs 10/12 Hereditary and Idiopathic Peripheral Neuropathy - 10/05/2008 Mixed Hyperlipidemia - 10/05/2008 Benign Prostatic Hyperplasia With Nocturia - 09/04/2008 Insomnia, unspecified - 09/04/2008 Social History Tobacco Use Smoking status: Former Packs/day: 1.00 Years: 20.00 Additional pack years: 0.00 Total pack years: 20.00 Types: Cigarettes Quit date: 04/06/1980 Years since quittin.4 Smokeless tobacco: Never Vaping Use Vaping Use: Never used Substance Use Topics Alcohol use: Not Currently Comment: stopped 07/19/2022 Drug use: Yes Types: Marijuana Review of Systems Respiratory: Positive for shortness of breath. Negative for apnea, cough, choking, chest tightness, wheezing and stridor. Cardiovascular: Negative. Musculoskeletal: Positive for back pain. OBJECTIVE BP 88/52 Pulse 98 Wt 167 lb (75.8kg) SpO2 97% Physical Exam Vitals and nursing note reviewed. Constitutional: General: He is awake. He is not in acute distress. Appearance: Normal appearance. He is well-developed and well-groomed. He is not ill-appearing, toxic-appearing or diaphoretic. HENT: Head: Normocephalic. Right Ear: External ear normal. Left Ear: External ear normal. Nose: Nose normal. Eyes: General: Vision grossly intact. Conjunctiva/sclera: Conjunctivae normal. Pupils: Pupils are equal, round, and reactive to light. Neck: Vascular: No JVD. Trachea: Trachea normal. Cardiovascular: Rate and Rhythm: Normal rate and regular rhythm. Pulses: Normal pulses. Heart sounds: Normal heart sounds. No murmur heard. Pulmonary: Effort: Pulmonary effort is normal. No accessory muscle usage, prolonged expiration or respiratory distress. Breath sounds: Normal breath sounds. Musculoskeletal: Cervical back: Neck supple. Skin: General: Skin is warm and dry. Capillary Refill: Capillary refill takes less than 2 seconds. Neurological: General: No focal deficit present. Mental Status: He is alert and oriented to person, place, and time. Mental status is at baseline. Psychiatric: Attention and Perception: Attention and perception normal. Mood and Affect: Mood and affect normal. Speech: Speech normal. Behavior: Behavior normal. Behavior is cooperative. Thought Content: Thought content normal. Cognition and Memory: Cognition and memory normal. Judgment: Judgment normal. ASSESSMENT/PLAN: 1. Chronic low back pain without sciatica, unspecified back pain laterality - ICD9: 724.2, 338.29, ICD10: M54.50, G89.29 (primary diagnosis) Pain is now more manageable, planning to follow up with the non-pharm pain management and see what they suggest for his chronic pain. Not using the percocet or tizanidine on a regular basis. 2. Compression fracture of L1 vertebra with routine healing, subsequent encounter - ICD9: V54.17, ICD10: S32.010D Healing. 3. Primary hypertension - ICD9: 401.9, ICD10: I10 - Controlled, actually on the more hypotensive side today, going to monitor bp at home more closely. - Recommend home blood pressure monitoring, to bring results to next visit - Encouraged sodium restriction, DASH or Mediterranean diet - Recommend regular aerobic exercise 4. SOB (shortness of breath) - ICD9: 786.05, ICD10: R06.02 Check cxr. - XR CHEST 2V FRONTAL/LAT 5. History of smoking - ICD9: V15.82, ICD10: Z87.891 6. BPH with obstruction/lower urinary tract symptoms - ICD9: 600.01, 599.69, ICD10: N40.1, N13.8 Stopped therapy due to too effective. I spent a total of 34 minutes on the date of the service which included preparing to see the patient, [id number] patient care, completing clinical documentation, obtaining and/or reviewing separately obtained history, performing a medically appropriate examination, counseling and educating the patient/family/caregiver, ordering medications, tests, or procedures, communicating with other HCPs (not separately reported), independently interpreting results (not separately reported), communicating results to the patient/family/caregiver, and care coordination (not separately reported). Portions of this note have been entered by ancillary staff. I have reviewed and when necessary edited, so that they are an adequate record of my encounter with this patient Please note that parts of this document were created using voice recognition software and therefore may contain grammatical errors. Patient verbalizes understanding of instructions from today's visit and in agreement with treatment plan. Questions answered. Agrees to call the office if questions, concerns of issues with acute symptoms not improving or if they worsen. See diagnoses and orders for additional plan(s). Allergies and medications were reviewed, list was updated, and refills given if needed. Past medical, surgical, social, and family history reviewed and updated as appropriate. Encouraged proper diet & exercise as well as compliance with taking medications. Age-appropriate health preventative measures were discussed. Return if symptoms worsen or fail to improve, for Keep next scheduled appointment.. Zeny Lam APRN-KAYLA documented in this encounter [facility] 08-24-2023 Telephone encounter Note PATIENT NOTIFIED OF SAME. Tracker updated [facility] 08-24-2023 Miscellaneous Notes PATIENT NOTIFIED OF SAME. Tracker updated He should continue with the current dose of coumadin and repeat the INR in 2 weeks. Thanks Last INR: INR Home CoaguChek 2.2 08/24/2023 Current dose of coumadin is: Coumadin 7.5 on Thursday and Thursday. Coumadin 5 mg all other days of the week. Last date of dose change: 08/14/2023. Previous INR (date and result): 1.5 08/14/2023 Additional Clinical Information or narrative: yes: Patient denies any unusual bleeding or bruising, recent antibiotics, any missed doses, any diet changes. Patient reports he finished oxycodone and tizanidine on Thursday08/21/2023. documented in this encounter [facility] 08-24-2023 Telephone encounter Note He should continue with the current dose of coumadin and repeat the INR in 2 weeks. Thanks [facility] 08-24-2023 Telephone encounter Note Last INR: INR Home CoaguChek 2.2 08/24/2023 Current dose of coumadin is: Coumadin 7.5 on Thursday and Thursday. Coumadin 5 mg all other days of the week. Last date of dose change: 08/14/2023. Previous INR (date and result): 1.5 08/14/2023 Additional Clinical Information or narrative: yes: Patient denies any unusual bleeding or bruising, recent antibiotics, any missed doses, any diet changes. Patient reports he finished oxycodone and tizanidine on Thursday08/21/2023. [facility] 08-18-2023 Telephone encounter Note [facility] website checked and validated. All prescriptions have been APPROPRIATELY filled. No suspicious activity was identified. 08/18/2023 by Zeyn Lam APRN.CNP [facility] 08-18-2023 Miscellaneous Notes [facility] website checked and validated. All prescriptions have been APPROPRIATELY filled. No suspicious activity was identified. 08/18/2023 by Zeny Lam APRN.CNP Patient phones for refill(s): Requested Prescriptions Pending Prescriptions Disp Refills oxyCODONE-acetaminophen (PERCOCET) 5-325 mg tablet 28 tablet 0 Sig: Take 1 tablet by mouth every 6 hours as needed for pain for up to 7 days. Date of last office visit in primary care: 07/27/2023 Date of next office visit in primary care: 09/15/2023 Graciela Parker RN. documented in this encounter [facility] 08-18-2023 Telephone encounter Note Patient phones for refill(s): Requested Prescriptions Pending Prescriptions Disp Refills oxyCODONE-acetaminophen (PERCOCET) 5-325 mg tablet 28 tablet 0 Sig: Take 1 tablet by mouth every 6 hours as needed for pain for up to 7 days. Date of last office visit in primary care: 07/27/2023 Date of next office visit in primary care: 09/15/2023 Graciela Parker RN. [facility] 08-14-2023 Miscellaneous Notes PATIENT NOTIFIED OF SAME. Tracker updated. Please advise him to take the 7.5 mg dose on 2 days of the week (can do Sat and Sun) and then the 5 mg all other days and repeat INR in 1 week. Zeny Lam APRN.CNP Last INR: INR Home CoaguChek 1.5 08/14/2023 Current dose of coumadin is: 7.5 mg on 08/06/2023, 5 mg daily since. Last date of dose change: 08/06/2023. Previous INR (date and result): 1.9 on 07/30/2023 Additional Clinical Information or narrative: Yes He had been off coumadin 5 days for dental work began back on 08/05 No changes diet, no antibiotics, no alcohol, no problems bruising or bleeding. documented in this encounter [facility] 08-14-2023 Telephone encounter Note PATIENT NOTIFIED OF SAME. Tracker updated. [facility] 08-14-2023 Telephone encounter Note Please advise him to take the 7.5 mg dose on 2 days of the week (can do Sat and Sun) and then the 5 mg all other days and repeat INR in 1 week. Zeny Lam APRN.CNP [facility] 08-14-2023 Telephone encounter Note Last INR: INR Home CoaguChek 1.5 08/14/2023 Current dose of coumadin is: 7.5 mg on 08/06/2023, 5 mg daily since. Last date of dose change: 08/06/2023. Previous INR (date and result): 1.9 on 07/30/2023 Additional Clinical Information or narrative: Yes He had been off coumadin 5 days for dental work began back on 08/05 No changes diet, no antibiotics, no alcohol, no problems bruising or bleeding. [facility] 08-13-2023 Telephone encounter Note Requested Prescriptions Pending Prescriptions Disp Refills tiZANidine (ZANAFLEX) 4 mg tablet 120 tablet 1 Sig: Take 1-2 tablets by mouth every 6 hours as needed. Date of last office visit in primary care: 07/27/2023 Date of next office visit in primary care: 09/15/2023 Please advise. Thank you. Joce Schmid MA. [facility] 08-13-2023 Miscellaneous Notes Requested Prescriptions Pending Prescriptions Disp Refills tiZANidine (ZANAFLEX) 4 mg tablet 120 tablet 1 Sig: Take 1-2 tablets by mouth every 6 hours as needed. Date of last office visit in primary care: 07/27/2023 Date of next office visit in primary care: 09/15/2023 Please advise. Thank you. Joce Schmid MA. documented in this encounter [facility] 08-11-2023 Telephone encounter Note [employer] website checked and validated. All prescriptions have been APPROPRIATELY filled. No suspicious activity was identified. 08/11/2023 by Zeny Lam APRN.DELIVERY CLERK [facility] 08-11-2023 Miscellaneous Notes [facility] website checked and validated. All prescriptions have been APPROPRIATELY filled. No suspicious activity was identified. 08/11/2023 by Zeny Lam APRN.CNP Patient has been identified by name and date of : Patient phones for refill(s): Requested Prescriptions Pending Prescriptions Disp Refills oxyCODONE-acetaminophen (PERCOCET) 5-325 mg tablet 28 tablet 0 Sig: Take 1 tablet by mouth every 6 hours as needed for pain for up to 7 days. Date of last office visit in primary care: 07/27/23 Date of next office visit in primary care: 09/15/23 Please advise. Thank you. Ramila Anand RN. documented in this encounter [facility] 08-11-2023 Telephone encounter Note Patient has been identified by name and date of : Patient phones for refill(s): Requested Prescriptions Pending Prescriptions Disp Refills oxyCODONE-acetaminophen (PERCOCET) 5-325 mg tablet 28 tablet 0 Sig: Take 1 tablet by mouth every 6 hours as needed for pain for up to 7 days. Date of last office visit in primary care: 07/27/23 Date of next office visit in primary care: 09/15/23 Please advise. Thank you. Ramila Anand RN. [facility] 08-10-2023 Micah Grant APRN.CNP, DNP - 08/10/2023 1:29 PM EDT Follow up with Micah Portillo APRN.CNP, DNP in 3 months Start a trial of Flomax Avoid bladder irritants Decrease fluid intake late at night. Lower urinary tract symptoms suggestive of benign prostatic enlargement. I discussed treatment options at length including r/b/a of each: To include Medication therapy and the role of further evaluation with UDS, TRUS and cysto if indicated. Discussed the role of pharmacotherapy, including risks, benefits and alternatives: Alpha-mark therapy [e.g. Tamsulosin] - potential risks of dizziness, asthenia, orthostasis, and retrograde ejaculation. Return to the clinic or seek care at [facility] for any worsening signs or symptoms: such as fevers, chills, worsening pain, gross blood in urine or worsening urinary symptoms. For severe symptoms seek care at the closest ER. Plan of care, medicaiton side effects and management reviewed with patient. Healthy Habits: Recommend regular physical activity, nutrition and healthy eating habits. Consume a variety of foods every day focusing on fruits, vegetables and lean meats). Eat foods low in fat, saturated fat and cholesterol. Eat a limited amount of salt and sodium. Drink adequate amounts of water and limit sugary drinks. Exercise portion control in meal selection. Establish a mindset of a wellness approach to health. Thank you for allowing me to provide your care today. I look forward to seeing you again and maintaining your health. Micah Portillo APRN.KAYLA, DNP documented in this encounter [facility] 08-10-2023 Nurse Note 76 mL of urine in the bladder 40 MINUTES after voiding [facility] 08-10-2023 Nurse Note 76 mL of urine in the bladder 40 MINUTES after voiding documented in this encounter [facility] 08-10-2023 History of Presen t illness Narrative [facility] MALE PATIENT - HISTORY AND PHYSICAL EXAMINATION PATIENT: Alex Brooks (77 year old) 08/10/2023 PCP: Zeny Lam APRN.DELIVERY CLERK Consultation requested by Dr. Franc Hills [address] [facility] [id number] for an opinion regarding BPH/LUTS and my final recommendations will be communicated back to the requesting physician by way of shared Medical record or letter via [place] mail. CHIEF COMPLAINT: BPH/LUTS HISTORY OF PRESENT ILLNESS: 77 year old year old male with BPH/LUTS. Worsening urinary symptoms. NTF 3x4 most bothersome. Previously seen Dr. Zhao in 2018 for slightly rising PSA. PSA returned to normal. No prior use of any BPH/LUTS oral medications. Was on Saw [place] - did not notice any difference. PRESENTING HISTORY: Hematuria: none Obstructive voiding symptoms: hesitancy and weak stream. Irritative voiding symptoms: frequency, urgency, and nocturia Urinary retention: no Urinary incontinence: no Urinary tract infection: no NO FHX OF PROSTATE, KIDNEY OR BLADDER CANCER Patient Entered Questionnaires: INTERNATIONAL PROSTATE SYMPTOM SCORE (I-PSS) 1)INCOMPLETE EMPTYING Over the past month, how often have you had a sensation of not emptying your bladder completely after you finished urinating? SCORE: 3- About half the time 2)FREQUENCY Over the past month, how often have you had to urinate again less than two hours after you finished urinating? SCORE: 4- More than half the time 3)INTERMITTENCY Over the past month, how often have you found you stopped and started again several times when you urinated? SCORE: 4- More than half the time 4)URGENCY Over the past month, how often have you found it difficult to postpone urination? SCORE: 2- less than half the time 5)WEAK STREAM Over the past month, how often have you had a weak stream? SCORE: 2- less than half the time 6)STRAINING Over the past month, how often have you had to push or strain to begin urination SCORE: 3- About half the time 7)NOCTURIA Over the past month, how many times did you most typically get up to urinate from the time you went to bed at night until the time you get up in the morning? SCORE:4 TOTAL I-PSS SCORE: 22 QUALITY OF LIFE DUE TO URINARY SYMPTOMS If you were to spend the rest of yur life with your urinary condition just the way it is now, how would you feel about that? 5- Unhappy PROMIS [employer] 12/10/2022 05/14/2023 08/03/2023 PROMIS Global Health Scale Physical Health Percentile 15 22 22 Mental Health Percentile 63 63 63 Percentiles provide an indication of how the patient's score ranks in relation to the general population. Higher percentile rankings indicate better function/quality of life. 50th percentile is the average of the general population and indicates half of respondents had a worse score. HISTORY: 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 Carotid stenosis, left 02/21/2019 s/p CEA Closed nondisplaced fracture of distal phalanx of right great toe 01/16/2021 Colonic polyp 11/29/2018 DDD (degenerative disc disease), lumbar 03/08/2014 Elevated prostate specific antigen (PSA) 09/15/2016 Esophageal reflux Fall at home 01/05/2018 Right Rib Fracture Hypertension Hypertrophy of prostate with urinary obstruction and other lower urinary tract symptoms (LUTS) 09/04/2008 With mild night-time symptoms, exam ok as of 09/2008 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 Related to sugar? -- see fasting glucose 2008; Impaired fasting glucose 10/11/2008 Under 110; See labs 10/12 INSOMNIA NOS 09/04/2008 Doing well with as-needed benzo at night Left bundle branch block 05/28/2010 Lumbago 02/23/2009 Lumbosacral spondylosis without myelopathy 08/07/2011 Lung disease Valley Fever Macular hole left eye Macular hole of left eye 06/19/2020 Mixed hyperlipidemia 10/05/2008 Neuropathy Nuclear sclerosis of right eye PE (pulmonary embolism) 09/04/2011 Peripheral vascular disease (HCC) Perirectal abscess 12/12/2008 Postconcussion syndrome 11/11/2011 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) 05/08/2014 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 REMV CATARACT EXTRACAP,INSERT LENS Left TRANSCATH RETRIEVAL,PERCUT 09/20/2012 IVC filter retrieval TRIESENCE INTRAVITREAL INJECTION OS (LEFT EYE) 10/25/2013 VENA CAVA FILTER 09/26/2011 later removed Social History Tobacco Use Smoking status: Former Packs/day: 1.00 Years: 20.00 Additional pack years: 0.00 Total pack years: 20.00 Types: Cigarettes Quit date: 04/06/1980 Years since quittin.3 Smokeless tobacco: Never Vaping Use Vaping Use: Never used Substance Use Topics Alcohol use: Not Currently Comment: stopped 07/19/2022 Drug use: Yes Types: Marijuana FAMILY HISTORY Problem Relation Age of Onset Hypertension Mother (longevity on mom's side) Cataract Mother Coronary Artery Disease Father father who of sudden cardiac arrest age 74 Heart Father heart stopped Blood Disease Brother pulmonary embolism history No Known Problems Maternal Grandmother No Known Problems Maternal Grandfather No Known Problems Paternal Grandmother Heart Paternal Grandfather Colon Cancer Other no close relatives known Prostate Cancer Other none Emphysema Other none MEDICATIONS: Current Outpatient Medications Medication Sig oxyCODONE-acetaminophen (PERCOCET) 5-325 mg tablet Take 1 tablet by mouth every 6 hours as needed for pain for up to [address] (PROTONIX) 40 mg tablet take 1 tablet by mouth once daily ON AN EMPTY STOMACH 30 MINUTES PRIOR TO A MEAL potassium chloride (KLOR-CON 10) 10 mEq tablet Take 1 tablet by mouth two times a day. DULoxetine (CYMBALTA) 60 mg capsule Take 1 capsule by mouth once daily. famotidine (PEPCID) 40 mg tablet Take 1 tablet by mouth once daily as needed. tiZANidine (ZANAFLEX) 4 mg tablet Take 1-2 tablets by mouth every 6 hours as needed. Back Br[facility] S/M) [facility] Use as instructed. lisinopril (ZESTRIL) 20 mg tablet Take 2 tablets by mouth once daily. Adjust dose as directed based on blood pressure readings LORazepam (ATIVAN) 2 mg tab Take 1 tablet by mouth at bedtime as needed (insomnia) for up to 180 days. warfarin (COUMADIN) 5 mg tablet Take 1.5 tablets on Sundays and 2 tablets Thursday through Saturdays rosuvastatin (CRESTOR) 40 mg tablet Take 1 tablet by mouth once daily. hydrocortisone 2.5 % cream Seldom vitamin B complex (B COMPLEX 1 ORAL) magnesium oxide 400 mg magnesium cap Take 1 capsule by mouth once daily. (Patient taking differently: Take 500 mg by mouth two times a day. 500mg daily) SAW PALMETTO ORAL Take 400 mg by mouth twice daily. coenzyme Q10 (COENZYME Q-10) 100 mg cap capsule Take 400 mg by mouth once daily. Cyanocobalamin 2,500 mcg subl Dissolve under the tongue twice daily. calcium, elemental, tab Take 600 mg by mouth twice daily. multivitamin (SOFYA MULTIVITAMIN) tablet Take 1 tablet by mouth once daily. tamsulosin (FLOMAX) 0.4 mg Take 1 capsule by mouth daily at bedtime. LORazepam (ATIVAN) 1 mg tablet Take 2 tablets by mouth at bedtime as needed for up to 120 days. For insomnia No current facility-administered medications for this visit. LABS: No UA today. Urinated prior to appt. Creatinine Creatinine Date Value Ref Range Status 07/15/2023 0.72 (L) 0.73 - 1.22 mg/dL Final 01/14/2023 0.90 0.73 - 1.22 mg/dL Final 08/18/2022 0.93 0.73 - 1.22 mg/dL Final 07/30/2022 0.85 0.73 - 1.22 mg/dL Final PSA PSA (ng/mL) Date Value 10/15/2017 0.65 03/02/2017 0.66 04/29/2016 1.25 04/10/2015 0.75 PSA Screening (ng/mL) Date Value 05/26/2022 0.61 10/24/2020 0.81 10/19/2018 0.58 OFFICE DATA: POST-VOID RESIDUAL BLADDER VOLUME: YES, 76 cc IMAGING: No results found. Review of Systems: PAIN ASSESSMENT: CURRENTLY HAVING NO PAIN GENERAL: No weight loss, malaise or fevers GI: No nausea, vomiting MUSCULOSKELETAL: Negative for generalized joint pain SKIN: Negative for rash HEMATOLOGY/LYMPHOLOGY: Negative for swollen nodes All other systems reviewed and noncontributory PHYSICAL EXAMINATION: VITALS: BP 117/65 Pulse 63 Resp 16 Ht 185.4 cm (6' 1) Wt 77.6 kg (171 lb) BMI 22.56 kg/m GENERAL: alert, no distress, normal affect RESPIRATORY: normal effort RECTAL: approximately 45 g prostate, no nodules PELVIC FLOOR: good tone, no tenderness EXTREMITIES: normal SKIN: normal NEUROLOGIC: normal ASSESSMENT/PLAN: 1. Benign prostatic hyperplasia with nocturia - ICD9: 600.01, 788.43, ICD10: N40.1, R35.1 MDM: The patient has lower urinary tract symptoms suggestive of benign prostatic hyperplasia. -UA normal/PENG Normal/No FHX of prostate cancer I discussed treatment options at length including r/b/a of each. I also discussed the role of further evaluation with UDS, TRUS and cysto if indicated. Discussed the role of pharmacotherapy, including risks, benefits and alternatives: Alpha-mark therapy [e.g. Tamsulosin] - potential risks of dizziness, asthenia, orthostasis, and retrograde ejaculation. Plan: -UA normal/PENG Normal/No FHX of prostate cancer Trial of Flomax at bedtime PVR = 76ml follow up in 3 months Avoid bladder irritants. - BLADDER SCAN - TAMSULOSIN 0.4 MG CAPSULE I spent a total of 35 minutes on the date of the service which included preparing to see the patient, [id number] patient care, completing clinical documentation, performing a medically appropriate examination, counseling and educating the patient/family/caregiver and ordering medications, tests, or procedures. Micah Portillo DNP, KAYLA Department of Urology [facility] documented in this encounter [facility] 08-04-2023 Telephone encounter Note [facility] website checked and validated. All prescriptions have been APPROPRIATELY filled. No suspicious activity was identified. 08/04/2023 by Zeny Lam APRN.KAYLA [facility] 08-04-2023 Miscellaneous Notes [facility] website checked and validated. All prescriptions have been APPROPRIATELY filled. No suspicious activity was identified. 08/04/2023 by Zeny Lam APRN.DELIVERY CLERK Patient has been identified by name and date of : Patient phones for refill(s): Requested Prescriptions Pending Prescriptions Disp Refills oxyCODONE-acetaminophen (PERCOCET) 5-325 mg tablet 28 tablet 0 Sig: Take 1 tablet by mouth every 6 hours as needed for pain for up to 7 days. Date of last office visit in primary care: 07/27/2023 Date of next office visit in primary care: 09/15/2023 Pt states needs today or tomorrow at the latest. Call only if problem. Please advise. Thank you. Ramila Anand RN. documented in this encounter [facility] 08-04-2023 Telephone encounter Note Patient has been identified by name and date of : Patient phones for refill(s): Requested Prescriptions Pending Prescriptions Disp Refills oxyCODONE-acetaminophen (PERCOCET) 5-325 mg tablet 28 tablet 0 Sig: Take 1 tablet by mouth every 6 hours as needed for pain for up to 7 days. Date of last office visit in primary care: 07/27/2023 Date of next office visit in primary care: 09/15/2023 Pt states needs today or tomorrow at the latest. Call only if problem. Please advise. Thank you. Ramila Anand RN. [facility] 07-30-2023 Telephone encounter Note Spoke with patient. Given message from provider's office. Patient verbalizes understanding. He confirmed he received VM message. Molly Ann RN [facility] 07-30-2023 Miscellaneous Notes Spoke with patient. Given message from provider's office. Patient verbalizes understanding. He confirmed he received VM message. Molly Ann RN Left detailed message regarding coumadin instructions and was advised to call back to confirm message was received. Celia James LPN Continue with current Coumadin dosing unchanged. Regarding dental appointment: Recommend checking INR 5 to 7 days after resuming Coumadin. He may resume Coumadin at 5 mg daily. Last INR: INR Home CoaguChek 1.9 07/30/2023 Current dose of coumadin is: 5 mg daily. Last date of dose change: 06/12/23. Previous INR (date and result): 07/15/23 2.4 INR Goal 2.0 to 3.0 Additional Clinical Information or narrative: no denies and bleeding, bruising, missed doses, recent ATB. Pt reports he has been eating a lot of ice cream. Pt wanted you to know he will be off coumadin 08/01/23 thru 08/05/23. Starting back on this 08/06/23. Pt having a dental work done on 08/06/23. Pt reports he will do an INR 5 days after returning to coumadin and reports when he has gone of coumadin in the past, his INR is normally 1.3. What do you recommend as a dosage regiment starting on 08/06/23? Please advise pt with recommendations. If pt does not answer please leave a detailed message. Maribel Oden LPN documented in this encounter [facility] 07-30-2023 Telephone encounter Note Left detailed message regarding coumadin instructions and was advised to call back to confirm message was received. Celia James LPN [facility] 07-30-2023 Telephone encounter Note Continue with current Coumadin dosing unchanged. Regarding dental appointment: Recommend checking INR 5 to 7 days after resuming Coumadin. He may resume Coumadin at 5 mg daily. [facility] 07-30-2023 Telephone encounter Note See phone encounter 07-30-23 anticoagulation. Maribel Oden LPN [facility] 07-30-2023 Miscellaneous Notes See phone encounter 07-30-23 anticoagulation. Maribel Oden LPN documented in this encounter [facility] 07-30-2023 Telephone encounter Note Last INR: INR Home CoaguChek 1.9 07/30/2023 Current dose of coumadin is: 5 mg daily. Last date of dose change: 06/12/23. Previous INR (date and result): 07/15/23 2.4 INR Goal 2.0 to 3.0 Additional Clinical Information or narrative: no denies and bleeding, bruising, missed doses, recent ATB. Pt reports he has been eating a lot of ice cream. Pt wanted you to know he will be off coumadin 08/01/23 thru 08/05/23. Starting back on this 08/06/23. Pt having a dental work done on 08/06/23. Pt reports he will do an INR 5 days after returning to coumadin and reports when he has gone of coumadin in the past, his INR is normally 1.3. What do you recommend as a dosage regiment starting on 08/06/23? Please advise pt with recommendations. If pt does not answer please leave a detailed message. Maribel Oden LPN [facility] 07-27-2023 Instructions Zeny Lam APRN.KAYLA - 07/27/2023 1:18 PM EDT Start reducing your use of the muscle relaxer, the Zanaflex (tizanidine) as pain improves. Increase the dose of the Cymbalta from the 30 mg daily to 60 mg daily. Try to use your back brace for a short time daily. documented in this encounter [facility] 07-27-2023 History of Presen t illness Narrative SUBJECTIVE Alex Brooks is a 77 year old male here today for a check up on his medical problems. Chief Complaint Patient presents with: ER F/U: [facility] 07/15/2023 for back pain/injury from a fall HPI Alex Brooks is a 77 year old male. He is an established patient. Here today for an ER follow up. He was being seen with PT for help with his back pain. Sent to ER by PT for concerns cauda equina syndrome. He was seen in the ER at [facility] on 07/15/2023. He had an MRI done. There was no cauda equina present. He was referred to see urology for concerns of frequent urinating/some urinary retention. No worsening or progressing of symptoms. Was following with Dr. Leal, planning to see spine surgery in September. Pain is somewhat improved. Taking the percocet every 6 hours. Planning to see urology. His medications were reviewed today and his list is now up to date. Medications Current Outpatient Medications Medication Sig pantoprazole DR (PROTONIX) 40 mg tablet take 1 tablet by mouth once daily ON AN EMPTY STOMACH 30 MINUTES PRIOR TO A MEAL famotidine (PEPCID) 40 mg tablet Take 1 tablet by mouth once daily as needed. tiZANidine (ZANAFLEX) 4 mg tablet Take 1-2 tablets by mouth every 6 hours as needed. lisinopril (ZESTRIL) 20 mg tablet Take 2 tablets by mouth once daily. Adjust dose as directed based on blood pressure readings LORazepam (ATIVAN) 2 mg tab Take 1 tablet by mouth at bedtime as needed (insomnia) for up to 180 days. warfarin (COUMADIN) 5 mg tablet Take 1.5 tablets on Sundays and 2 tablets Thursday through Saturdays rosuvastatin (CRESTOR) 40 mg tablet Take 1 tablet by mouth once daily. hydrocortisone 2.5 % cream Seldom vitamin B complex (B COMPLEX 1 ORAL) magnesium oxide 400 mg magnesium cap Take 1 capsule by mouth once daily. (Patient taking differently: Take 500 mg by mouth two times a day. 500mg daily) SAW PALMETTO ORAL Take 400 mg by mouth twice daily. coenzyme Q10 (COENZYME Q-10) 100 mg cap capsule Take 400 mg by mouth once daily. Cyanocobalamin 2,500 mcg subl Dissolve under the tongue twice daily. calcium, elemental, tab Take 600 mg by mouth twice daily. multivitamin (SOFYA MULTIVITAMIN) tablet Take 1 tablet by mouth once daily. oxyCODONE-acetaminophen (PERCOCET) 5-325 mg tablet Take 1 tablet by mouth every 6 hours as needed for pain for up to 7 days. potassium chloride (KLOR-CON 10) 10 mEq tablet Take 1 tablet by mouth two times a day. DULoxetine (CYMBALTA) 60 mg capsule Take 1 capsule by mouth once daily. Back Brace (BACK SUPPORT S/M) [facility] Use as instructed. LORazepam (ATIVAN) 1 mg tablet Take 2 tablets by mouth at bedtime as needed for up to 120 days. For insomnia No current facility-administered medications for this visit. ALLERGIES Allergen Reactions Cyclobenzaprine Other: See Comments Double vision Gabapentin Intolerance Keflex [Cephalexin] Rash ACTIVE PROBLEM LIST Compression Fracture of L1 Lumbar Vertebra ([facility]) - 07/15/2023 Sciatic Leg Pain - 07/15/2023 Bilateral Carotid Artery Stenosis - 06/15/2023 Acute Gastritis Without Hemorrhage - 04/20/2023 Spinal Stenosis of Lumbar Region - 09/24/2022 Pad (Peripheral Artery Disease) ([facility]) - 08/16/2021 Kidney Insufficiency - 04/04/2021 Posterior Vitreous Detachment of Right Eye - 06/19/2020 Age-Related Nuclear Cataract of Right Eye - 06/19/2020 Balance Problem - 03/12/2020 History of Left-Sided Carotid Endarterectomy - 06/10/2019 Colonic Polyp - 11/29/2018 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 Hypercoag studies all have been neg as of 05/2014. Bro w/hypercoag W/U previously as well. Gerd (Gastroesophageal Reflux Disease) - 02/17/2014 Htn (Hypertension) - 07/02/2009 Comment: 03/24/2023: Home BP Cuff Validated. Home BP: 114/71 93 Office BP: 100/56 96 Lumbago - 02/23/2009 Impaired Fasting Glucose - 10/11/2008 Comment: Under 110; See labs 10/12 Hereditary and Idiopathic Peripheral Neuropathy - 10/05/2008 Mixed Hyperlipidemia - 10/05/2008 Bph With Obstruction/Lower Urinary Tract Symptoms - 09/04/2008 Insomnia, unspecified - 09/04/2008 Social History Tobacco Use Smoking status: Former Packs/day: 1.00 Years: 20.00 Additional pack years: 0.00 Total pack years: 20.00 Types: Cigarettes Quit date: 04/06/1980 Years since quittin.3 Smokeless tobacco: Never Vaping Use Vaping Use: Never used Substance Use Topics Alcohol use: Not Currently Comment: stopped 07/19/2022 Drug use: Yes Types: Marijuana Review of Systems Respiratory: Negative. Cardiovascular: Negative. Musculoskeletal: Positive for arthralgias, back pain and myalgias. OBJECTIVE BP 114/60 Pulse 65 Wt 169 lb (76.7kg) SpO2 96% Physical Exam Vitals and nursing note reviewed. Constitutional: General: He is awake. He is not in acute distress. Appearance: Normal appearance. He is well-developed and well-groomed. He is not ill-appearing, toxic-appearing or diaphoretic. HENT: Head: Normocephalic. Right Ear: External ear normal. Left Ear: External ear normal. Nose: Nose normal. Eyes: General: Vision grossly intact. Conjunctiva/sclera: Conjunctivae normal. Pupils: Pupils are equal, round, and reactive to light. Neck: Vascular: No JVD. Trachea: Trachea normal. Cardiovascular: Rate and Rhythm: Normal rate and regular rhythm. Pulses: Normal pulses. Heart sounds: Normal heart sounds. No murmur heard. Pulmonary: Effort: Pulmonary effort is normal. No accessory muscle usage, prolonged expiration or respiratory distress. Breath sounds: Normal breath sounds. Musculoskeletal: Cervical back: Neck supple. Skin: General: Skin is warm and dry. Capillary Refill: Capillary refill takes less than 2 seconds. Neurological: General: No focal deficit present. Mental Status: He is alert and oriented to person, place, and time. Mental status is at baseline. Psychiatric: Attention and Perception: Attention and perception normal. Mood and Affect: Mood and affect normal. Speech: Speech normal. Behavior: Behavior normal. Behavior is cooperative. Thought Content: Thought content normal. Cognition and Memory: Cognition and memory normal. Judgment: Judgment normal. ASSESSMENT/PLAN: 1. Compression fracture of L1 vertebra with routine healing, subsequent encounter - ICD9: V54.17, ICD10: S32.010D (primary diagnosis) Continue with follow up with Dr. Leal and see spine surgery as scheduled. Increase Cymbalta and try to reduce percocet and flexeril use. He also plans to see non-pharm pain management. - OXYCODONE-ACETAMINOPHEN 5 MG-325 MG TABLET - DULOXETINE 60 MG CAPSULE,DELAYED RELEASE 2. Chronic low back pain without sciatica, unspecified back pain laterality - ICD9: 724.2, 338.29, ICD10: M54.50, G89.29 - OXYCODONE-ACETAMINOPHEN 5 MG-325 MG TABLET - DULOXETINE 60 MG CAPSULE,DELAYED RELEASE 3. Acute bilateral low back pain with bilateral sciatica - ICD9: 724.2, 724.3, ICD10: M54.42, M54.41 - OXYCODONE-ACETAMINOPHEN 5 MG-325 MG TABLET - DULOXETINE 60 MG CAPSULE,DELAYED RELEASE 4. Urinary dysfunction - ICD9: 788.69, ICD10: R39.198 Follow up with urology. 5. Primary hypertension - ICD9: 401.9, ICD10: I10 - Controlled - Continue current medications - Recommend home blood pressure monitoring, to bring results to next visit - Encouraged sodium restriction, DASH or Mediterranean diet - Recommend regular aerobic exercise - ECHO - PERFLUTREN LIPID MICROSPHERES 1.1 MG/ML INJECTION IN NS 10 ML - SODIUM CHLORIDE 0.9 % (FLUSH) INJECTION [place] PDMP website checked and validated. All prescriptions have been APPROPRIATELY filled. No suspicious activity was identified. 07/27/2023 by Zeny Lam APRN.DELIVERY CLERK Portions of this note have been entered by ancillary staff. I have reviewed and when necessary edited, so that they are an adequate record of my encounter with this patient Please note that parts of this document were created using voice recognition software and therefore may contain grammatical errors. Patient verbalizes understanding of instructions from today's visit and in agreement with treatment plan. Questions answered. Agrees to call the office if questions, concerns of issues with acute symptoms not improving or if they worsen. See diagnoses and orders for additional plan(s). Allergies and medications were reviewed, list was updated, and refills given if needed. Past medical, surgical, social, and family history reviewed and updated as appropriate. Encouraged proper diet & exercise as well as compliance with taking medications. Age-appropriate health preventative measures were discussed. . Return if symptoms worsen or fail to improve, for Keep next scheduled appointment.. MICHI Navarro documented in this encounter [facility] 07-27-2023 Telephone encounter Note Patient has been identified by name and date of : yes Patient phones for refill(s): Requested Prescriptions Pending Prescriptions Disp Refills pantoprazole DR (PROTONIX) 40 mg tablet [Pharmacy Med Name: PANTOPRAZOLE SOD DR 40 MG TAB] 90 tablet 1 Sig: take 1 tablet by mouth once daily ON AN EMPTY STOMACH 30 MINUTES PRIOR TO A MEAL Date of last office visit in primary care: 07/18/2023 Date of next office visit in primary care: 07/27/2023 Please advise. Thank you. Mirlande Maria MA. [facility] 07-27-2023 Miscellaneous Notes Patient has been identified by name and date of : yes Patient phones for refill(s): Requested Prescriptions Pending Prescriptions Disp Refills pantoprazole DR (PROTONIX) 40 mg tablet [Pharmacy Med Name: PANTOPRAZOLE SOD DR 40 MG TAB] 90 tablet 1 Sig: take 1 tablet by mouth once daily ON AN EMPTY STOMACH 30 MINUTES PRIOR TO A MEAL Date of last office visit in primary care: 07/18/2023 Date of next office visit in primary care: 07/27/2023 Please advise. Thank you. Mirlande Maria MA. documented in this encounter [facility] 07-21-2023 History of Presen t illness Narrative Images from the original note were not included. [facility] [place] DEPARTMENT OF VASCULAR SURGERY OUTPATIENT VISIT DATE July 21, 2023 OUTPATIENT VISIT TYPE ESTABLISHED SERVICE DATE: 07/21/2023 SERVICE TIME: 11:25 AM PRIMARY CARE PHYSICIAN: Zeny Lam APRN.DELIVERY CLERK HISTORY OF PRESENT ILLNESS: Mr. Brooks is a 77 year old male who presents today for a vascular surgery follow-up visit for peripheral arterial disease. He denies new complaints. Denies rest pain or tissue loss. Denies focal neurologic deficit. 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 Carotid stenosis, left 02/21/2019 s/p CEA Closed nondisplaced fracture of distal phalanx of right great toe 01/16/2021 Colonic polyp 11/29/2018 DDD (degenerative disc disease), lumbar 03/08/2014 Elevated prostate specific antigen (PSA) 09/15/2016 Esophageal reflux Fall at home 01/05/2018 Right Rib Fracture Hypertension Hypertrophy of prostate with urinary obstruction and other lower urinary tract symptoms (LUTS) 09/04/2008 With mild night-time symptoms, exam ok as of 09/2008 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 Related to sugar? -- see fasting glucose 2008; Impaired fasting glucose 10/11/2008 Under 110; See labs 10/12 INSOMNIA NOS 09/04/2008 Doing well with as-needed benzo at night Left bundle branch block 05/28/2010 Lumbago 02/23/2009 Lumbosacral spondylosis without myelopathy 08/07/2011 Lung disease [place] Fever Macular hole left eye Macular hole of left eye 06/19/2020 Mixed hyperlipidemia 10/05/2008 Neuropathy Nuclear sclerosis of right eye PE (pulmonary embolism) 09/04/2011 Peripheral vascular disease (HCC) Perirectal abscess 12/12/2008 Postconcussion syndrome 11/11/2011 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) 05/08/2014 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 REMV CATARACT EXTRACAP,INSERT LENS Left TRANSCATH RETRIEVAL,PERCUT 09/20/2012 IVC filter retrieval TRIESENCE INTRAVITREAL INJECTION OS (LEFT EYE) 10/25/2013 VENA CAVA FILTER 09/26/2011 later removed SOCIAL HISTORY Social History Tobacco Use Smoking status: Former Packs/day: 1.00 Years: 20.00 Additional pack years: 0.00 Total pack years: 20.00 Types: Cigarettes Quit date: 04/06/1980 Years since quittin.3 Smokeless tobacco: Never Vaping Use Vaping Use: Never used Substance Use Topics Alcohol use: Not Currently Comment: stopped 07/19/2022 Drug use: Yes Types: Marijuana MEDICATIONS: oxyCODONE-acetaminophen (PERCOCET) 5-325 mg tablet Take 1 tablet by mouth every 6 hours as needed for pain for up to 7 days. famotidine (PEPCID) 40 mg tablet Take 1 tablet by mouth once daily as needed. baclofen 2% diclofenac 3% lidocaine 5% topical (CPD) Apply 2 Pump to affected area four times daily. DULoxetine (CYMBALTA) 30 mg capsule Take 1 capsule by mouth once daily. tiZANidine (ZANAFLEX) 4 mg tablet Take 1-2 tablets by mouth every 6 hours as needed. Back Brace (BACK SUPPORT S/M) [facility] Use as instructed. lisinopril (ZESTRIL) 20 mg tablet Take 2 tablets by mouth once daily. Adjust dose as directed based on blood pressure readings LORazepam (ATIVAN) 2 mg tab Take 1 tablet by mouth at bedtime as needed (insomnia) for up to [address]. [address] (PROTONIX) 40 mg tablet take 1 tablet by mouth once daily ON AN EMPTY STOMACH 30 MINUTES PRIOR TO A MEAL warfarin (COUMADIN) 5 mg tablet Take 1.5 tablets on Sundays and 2 tablets Thursday through Saturdays rosuvastatin (CRESTOR) 40 mg tablet Take 1 tablet by mouth once daily. potassium chloride (KLOR-CON 10) 10 mEq tablet Take 1 tablet by mouth twice daily. hydrocortisone 2.5 % cream Seldom vitamin B complex (B COMPLEX 1 ORAL) magnesium oxide 400 mg magnesium cap Take 1 capsule by mouth once daily. (Patient taking differently: Take 500 mg by mouth two times a day. 500mg daily) SAW PALMETTO ORAL Take 400 mg by mouth twice daily. coenzyme Q10 (COENZYME Q-10) 100 mg cap capsule Take 400 mg by mouth once daily. Cyanocobalamin 2,500 mcg subl Dissolve under the tongue twice daily. calcium, elemental, tab Take 600 mg by mouth twice daily. multivitamin (SOFYA MULTIVITAMIN) tablet Take 1 tablet by mouth once daily. LORazepam (ATIVAN) 1 mg tablet Take 2 tablets by mouth at bedtime as needed for up to 120 days. For insomnia ALLERGIES: ALLERGIES Allergen Reactions Cyclobenzaprine Other: See Comments Double vision Gabapentin Intolerance Keflex [Cephalexin] Rash PHYSICAL EXAM: BP 123/70 (BP Site: Left Arm, BP Position: Sitting, BP Cuff Size: Regular Adult) Pulse 73 SpO2 96% Gen- no distress Ext- non-palpable distal pulses, no ulcerations or tissue loss, no edema Diagnostic tests reviewed for today's visit: Most recent labs Most recent imaging PVRs Compared to prior study of 12/11/2022, No significant change. RIGHT SIDE Resting right ankle brachial index: 1.20 Partially non-compressible arteries, NATI not accurate. Right toe brachial index: 0.52 Non-compressible vessels, results called by PVR tracings. Abnormal toe brachial index at rest is evidence of peripheral artery disease. Right ankle: Mild disease at rest. Right superficial femoral disease. LEFT SIDE Resting left ankle brachial index: 0.90 Partially non-compressible arteries, NATI not accurate. Left toe brachial index: 0.32 Non-compressible vessels, results called by PVR tracings. Abnormal toe brachial index at rest is evidence of peripheral artery disease. Left ankle: Moderate disease at rest. Left superficial femoral disease. IMPRESSION: Mr. Brooks is a 77 year old male with peripheral arterial disease . PLAN and RECOMMENDATIONS: Recommend continued non-interventional therapy Continue blood pressure and cholesterol control Follow up in one year or sooner with any concerns SIGNATURE: Edgar Loaiza DO PATIENT NAME: Alex Brooks DATE: July 21, 2023 TIME: 11:25 AM documented in this encounter [facility] 07-21-2023 Miscellaneous Notes PDMP website checked and validated. All prescriptions have been APPROPRIATELY filled. No suspicious activity was identified. 07/21/2023 by Zeny Lam APRN.[email or web address] Patient has been identified by name and date of : Patient phones for refill(s): Requested Prescriptions Pending Prescriptions Disp Refills oxyCODONE-acetaminophen (PERCOCET) 5-325 mg tablet 28 tablet 0 Sig: Take 1 tablet by mouth every 6 hours as needed for pain for up to 7 days. famotidine (PEPCID) 40 mg tablet 90 tablet 1 Sig: Take 1 tablet by mouth once daily as needed. Date of last office visit in primary care: 07/18/2023 Date of next office visit in primary care: 07/27/2023 Patient knows percocet not due till Thursday wants Zeny to take care of the rx Please advise. Thank you. Tala Torres LPN. documented in this encounter [facility] 07-18-2023 History of Presen t illness Narrative This note was created using NoteWriter. Subjective Patient presents with: ED Follow-up: back pain seen in ER 07/15/23 Alex Brooks is a 77 year old male here for ER follow. He fell early May and was diagnosed with compression fracture of L1. His chronic low back pain was exacerbated, and he had been following with PCP and pain management. He was referred to physical therapy. July 14, physical therapy evaluated him and became concerned about cauda equina syndrome and referred him directly to [facility] ER. MRI of his lumbar spine was on file, and was essentially negative for cauda equina syndrome. He was discharged with a diagnosis of chronic midline low back pain without sciatica, closed compression fracture of L1, and BPH with LUTs. Bladder ultrasound confirmed incomplete bladder emptying. He was not started on medication for BPH, as he felt urinary symptoms were bothersome only when reclining flat. He has been getting consistent Percocet refills and had a current prescription. He was using a back brace. Review of Systems Constitutional: Negative for appetite change, chills and fever. Respiratory: Negative for cough and shortness of breath. Cardiovascular: Negative for chest pain, palpitations and leg swelling. Gastrointestinal: Negative for abdominal pain, constipation, diarrhea, nausea and vomiting. Genitourinary: Positive for decreased urine volume. Negative for difficulty urinating, dysuria and frequency. Musculoskeletal: Positive for back pain and gait problem. Neurological: Positive for numbness. Negative for dizziness and speech difficulty. 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 baclofen 2% diclofenac 3% lidocaine 5% topical (CPD) Apply 2 Pump to affected area four times daily. DULoxetine (CYMBALTA) 30 mg capsule Take 1 capsule by mouth once daily. tiZANidine (ZANAFLEX) 4 mg tablet Take 1-2 tablets by mouth every 6 hours as needed. Back Brace (BACK SUPPORT S/M) [facility] Use as instructed. lisinopril (ZESTRIL) 20 mg tablet Take 2 tablets by mouth once daily. Adjust dose as directed based on blood pressure readings LORazepam (ATIVAN) 1 mg tablet Take 2 tablets by mouth at bedtime as needed for up to 120 days. For insomnia LORazepam (ATIVAN) 2 mg tab Take 1 tablet by mouth at bedtime as needed (insomnia) for up to [address] (PROTONIX) 40 mg tablet take 1 tablet by mouth once daily ON AN EMPTY STOMACH 30 MINUTES PRIOR TO A MEAL famotidine (PEPCID) 40 mg tablet Take 1 tablet by mouth once daily as needed. warfarin (COUMADIN) 5 mg tablet Take 1.5 tablets on Sundays and 2 tablets Thursday through Saturdays rosuvastatin (CRESTOR) 40 mg tablet Take 1 tablet by mouth once daily. potassium chloride (KLOR-CON 10) 10 mEq tablet Take 1 tablet by mouth twice daily. Cholecalciferol, Vitamin D3, 75 mcg (3,000 unit) tab Take by mouth. hydrocortisone 2.5 % cream Seldom vitamin B complex (B COMPLEX 1 ORAL) magnesium oxide 400 mg magnesium cap Take 1 capsule by mouth once daily. (Patient taking differently: Take 500 mg by mouth two times a day. 500mg daily) SAW PALMETTO ORAL Take 400 mg by mouth twice daily. coenzyme Q10 (COENZYME Q-10) 100 mg cap capsule Take 400 mg by mouth once daily. Cyanocobalamin 2,500 mcg subl Dissolve under the tongue twice daily. calcium, elemental, tab Take 600 mg by mouth twice daily. multivitamin (SOFYA MULTIVITAMIN) tablet Take 1 tablet by mouth once daily. No current facility-administered medications for this visit. Objective Blood Pressure 114/50 (BP Site: Left Arm, BP Position: Sitting, BP Cuff Size: Large Adult) Pulse 62 Temperature 36.9 C (98.4 F) Respiration 12 Height 185.4 cm (6' 1) Weight 72.1 kg (159 lb) Oxygen Saturation 97% Body Mass Index 20.98 kg/m Physical Exam Constitutional: General: He is not in acute distress. Appearance: He is not diaphoretic. HENT: Head: Normocephalic. Cardiovascular: Heart sounds: Normal heart sounds. Pulmonary: Breath sounds: Normal breath sounds. Chest: Chest wall: No tenderness. Abdominal: General: There is no distension. Palpations: There is no mass. Tenderness: There is no abdominal tenderness. Musculoskeletal: Thoracic back: No tenderness or bony tenderness. Lumbar back: No tenderness or bony tenderness. Negative right straight leg raise test and negative left straight leg raise test. Right lower leg: No edema. Left lower leg: No edema. Comments: Chronic bilateral AFO for feet drop. Neurological: Mental Status: He is alert. Motor: No weakness. Gait: Gait abnormal. ER report, results reviewed. Assessment and Plan 1. Compression fracture of L1 vertebra with routine healing, subsequent encounter - ICD9: V54.17, ICD10: S32.010D (primary diagnosis) - Continue current management. 2. Chronic bilateral low back pain with bilateral sciatica - ICD9: 724.2, 724.3, 338.29, ICD10: M54.42, M54.41, G89.29 Chronic low back pain - As above. 3. BPH with obstruction/lower urinary tract symptoms - ICD9: 600.01, 599.69, ICD10: N40.1, N13.8 Shared medical decision making was done. He has labile blood pressures so alpha blockers have some risk of orthostatic dizziness and syncope. We agreed to urology evaluation. - CONSULT TO UROLOGY Follow up with PCP and pain management this month as scheduled. Franc Hills MD documented in this encounter [facility] 07-17-2023 Miscellaneous Notes Patient has been identified by name and date of : Yes, Provider Zeny Lam Date 07/17/23 Time 11:40 am Patient phones for refill(s): Requested Prescriptions Pending Prescriptions Disp Refills famotidine (PEPCID) 40 mg tablet 90 tablet 1 Sig: Take 1 tablet by mouth once daily as needed. Date of last office visit in primary care: Visit 06/29/23 Date of next office visit in primary care: Visit 07/27/23 Thank you. Maribel Oden LPN. documented in this encounter [facility] 07-15-2023 Miscellaneous Notes My chart message to pt. Continue Coumadin dose. INR in 2 weeks. Last INR: INR Home CoaguChek 2.4 07/15/2023 Current dose of coumadin is: 5 mg daily. Last date of dose change: 06/12/23. Previous INR (date and result): 06/30/2305/08 INR Goal 2.0 to 3.0 Additional Clinical Information or narrative: no denies and bledding, bruising, change in diet, missed doses, recent ATB. Provider out of the office. Routing to Provider chief construction inspector Maribel Oden LPN documented in this encounter [facility] 07-15-2023 Miscellaneous Notes Detailed VM left on pt's identified voicemail of information below. Maribel Oden LPN Percocet refilled. Pt states she will be out of medication by noon on . Pt called in asking about this medication. Sending medication high alert. Reason for taking medication is because of his broken back. Patient has been identified by name and date of : Yes, Provider Zeny Lam CNP Date 07/13/23 Time 1:55 pm. Patient phones for refill(s): Requested Prescriptions Pending Prescriptions Disp Refills oxyCODONE-acetaminophen (PERCOCET) 5-325 mg tablet 28 tablet 0 Sig: Take 1 tablet by mouth every 6 hours as needed for pain for up to 7 days. Date of last office visit in primary care: 06/29/23 Date of next office visit in primary care: 09/15/23 No call back needed. Thank you. Maribel Oden LPN. documented in this encounter [facility] 07-15-2023 History of Presen t illness Narrative Images from the original note were not included. Episode Visit Count: 1 Therapist That Will Accept/Oversee The Plan Of Care: Brian Prather Start of Care Date: 07/15/23 Onset Date: 05/14/23 Plan of Care Certification Date: 07/15/23 Next Certification Due Date: 07/22/23 REHABILITATION AND SPORTS THERAPY PHYSICAL THERAPY EVALUATION PLAN OF CARE: Assessment: Alex Brooks presents with chief complaint of back pain that interferes with standing, walking . He presents with impairments in ADL's, gait, overall function, range of motion, sensation, strength, and symptom management. PROMIS (Patient-Reported Outcomes Measurement Information System) scores were reviewed and identified as a rehabilitation concern. Prognosis for therapy is Poor due to: clinical presentation, multiple co- morbidities, advanced age, chronic nature of impairments, coping skills, decreased motivation, poor understanding of deficits . He will be referred to the ED due to onset of urinary retention and saddle anesthesia. Patient agreeable to go to the ED today. Goals for Episode of Care: created on 07/15/23 through 07/22/23 Patient will demonstrate understanding of urgency to present to ED due to saddle anesthesia and urinary retention. Met Planned Interventions, Frequency, and Duration: Current Frequency: 1 visit Duration: 1 visit Total Number of Visits Planned: 1 Planned Treatment Interventions: PLAN FOR NEXT VISIT: N/A; D/C to ER Patient demonstrates good understanding of plan of care and treatment. The above goals and plan of care were discussed and agreed upon by patient/family. SUBJECTIVE: pain worse in morning; cannot sleep in bed. Pt notes that he has difficulty voiding urine, has saddle region numbness, and has constipation. Presents w/ foot drop and severe weakness in BLE. Has inconsistent pain in BLE and in lumbar region; but is severe when it occurs. Does not wear brace due to pain in sitting and driving. Patient agreeable to go to [facility] due to cauda equina symptoms today Functional Limitations: standing, walking Intake Information: Prescription present Red Flags Cauda Equina Syndrome Red Flags: Saddle anesthesia *, Non-dermatomal loss of sensation, Non-myotomal weakness, Immediate Referral to emergency room due to: Sudden onset urinary retention Cauda Equina Syndrome Clinical Reasoning: Immediate Referral to emergency room (Pt denied going to ER; edu urgency of symptoms. Still denial.) Pain: Pain Pain Level: 8 Pain Location: Low Back/Lumbar Spine- Midline Description: Numbness, Shooting Frequency: Continuous PROMIS Scales 07/12/2023 06/02/2023 12/03/2022 Higher is Better Phys Func - Score 27 (severe dysfunction) 29 (severe dysfunction) 42 (mild dysfunction) Phys Func - Percentile 1 2 21 Self-Eff Symptom - Score 34 (Low) Self-Eff Symptom - Percentile 5 T-scores: mean of general population = 50. 5 points is clinically meaningfully difference Percentiles provide an indication of how the patient's score ranks in relation to the general population. Higher percentile rankings indicate better function/quality of life. 50th percentile is the average of the general population and indicates half of respondents had a worse score. OBJECTIVE MEASURES WITH LEVEL OF FUNCTION: Objective measures deferred today due to onset of saddle anesthesia and urinary retention. Education: Education Education Provided: Other: See Comment (educated on cauda equina s/s) TREATMENT: Evaluation No treatment today due to referral to ED Billing * Evaluation High Complexity: 1 Unit Skilled Treatment Time Minutes (timed and untimed codes): 17 Total Session Time (minutes): 17 Session Start Time : 1117 Session Stop Time : 1134 Brian Prather PT documented in this encounter [facility] 07-07-2023 Miscellaneous Notes Rescheduled. Antoinette Meadows RN Refill sent, please let him know that I am okay moving out the wellness/follow up appointment, plase schedule when he is agreeable to come in. Thanks Patient calls to ask if provider thinks it would be a good idea to reschedule his 6 month follow up and Wellness Physical at the end of July to the end of August or beginning of September with blood work a couple of weeks before. Patient reports he has done some research and he believes with his recent fractured spine and medications he is taking it will take atleast 12 weeks to fully heal and lab results won't be accurate until atleast that time. Patient also requesting refill for percocet to be filled starting tomorrow. Pended per request. Please review and advise, Antoinette Meadows RN documented in this encounter [facility] 06-30-2023 Miscellaneous Notes Pt notified and verbalizes understanding. Tracker updated Maribel Mccoy MA INR looks good, continue with current dose of coumadin and repeat INR in 2 weeks since we started the Cymbalta this week. Last INR: INR Home CoaguChek 2.2 06/30/2023 Current dose of coumadin is: 5 mg daily. Last date of dose change: 06/12/23. Previous INR (date and result): 06/12/23 3.0 INR Goal 2.0 3.0 Additional Clinical Information or narrative: no denies any change in diet, bleeding or bruising, change in appetitive, no missed doses. okay to leave a detailed message for pt. Maribel Oden LPN documented in this encounter [facility] 06-29-2023 History of Presen t illness Narrative SUBJECTIVE Alex Brooks is a 77 year old male here today for a check up on his medical problems. Chief Complaint Patient presents with: Back Pain: Patient states he has fractured spine, experiencing symptoms in muscles, spine, nerves etc., patient wanting to go to one specialist for all four HPI Alex Brooks is a 77 year old male. He is an established patient. He presents today for follow up for concerns of still having issues with back pain. He has had chronic back pain, follows with Dr. Leal, and recently sustained a compression fracture. Issues daily with pain. Sleeping on couch, cannot sleep in bed. Stiff in the mornings. Pain in the spine, down the legs (sciatic), pelvis, muscles. Percocet works okay for certain things. The Zanaflex helps with some certain pains too. Together they are keeping pain okay. Pain down both legs, under the buttocks and laterally. Numbness to the legs but not saddle paresthesia. No loss of bowel or bladder control or leaking. Wearing a back brace at times but not frequently. His medications were reviewed today and his list is now up to date. Medications Current Outpatient Medications Medication Sig Back Brace (BACK SUPPORT S/M) [facility] Use as instructed. lisinopril (ZESTRIL) 20 mg tablet Take 2 tablets by mouth once daily. Adjust dose as directed based on blood pressure readings LORazepam (ATIVAN) 1 mg tablet Take 2 tablets by mouth at bedtime as needed for up to 120 days. For insomnia LORazepam (ATIVAN) 2 mg tab Take 1 tablet by mouth at bedtime as needed (insomnia) for up to [address] (PROTONIX) 40 mg tablet take 1 tablet by mouth once daily ON AN EMPTY STOMACH 30 MINUTES PRIOR TO A MEAL famotidine (PEPCID) 40 mg tablet Take 1 tablet by mouth once daily as needed. warfarin (COUMADIN) 5 mg tablet Take 1.5 tablets on Sundays and 2 tablets Thursday through Saturdays rosuvastatin (CRESTOR) 40 mg tablet Take 1 tablet by mouth once daily. potassium chloride (KLOR-CON 10) 10 mEq tablet Take 1 tablet by mouth twice daily. hydrocortisone 2.5 % cream Seldom vitamin B complex (B COMPLEX 1 ORAL) magnesium oxide 400 mg magnesium cap Take 1 capsule by mouth once daily. (Patient taking differently: Take 500 mg by mouth two times a day. 500mg daily) SAW PALMETTO ORAL Take 400 mg by mouth twice daily. coenzyme Q10 (COENZYME Q-10) 100 mg cap capsule Take 400 mg by mouth once daily. Cyanocobalamin 2,500 mcg subl Dissolve under the tongue twice daily. calcium, elemental, tab Take 600 mg by mouth twice daily. multivitamin (SOFYA MULTIVITAMIN) tablet Take 1 tablet by mouth once daily. oxyCODONE-acetaminophen (PERCOCET) 5-325 mg tablet Take 1 tablet by mouth every 6 hours as needed for pain for up to 7 days. baclofen 2% diclofenac 3% lidocaine 5% topical (CPD) Apply 2 Pump to affected area four times daily. DULoxetine (CYMBALTA) 30 mg capsule Take 1 capsule by mouth once daily. tiZANidine (ZANAFLEX) 4 mg tablet Take 1-2 tablets by mouth every 6 hours as needed. Cholecalciferol, Vitamin D3, 75 mcg (3,000 unit) tab Take by mouth. No current facility-administered medications for this visit. 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 Hypercoag studies all have been neg as of 05/2014. Bro w/hypercoag W/U previously as well. Gerd (Gastroesophageal Reflux Disease) - 02/17/2014 Htn (Hypertension) - 07/02/2009 Comment: 03/24/2023: Home BP Cuff Validated. Home BP: 114/71 93 Office BP: 100/56 96 Lumbago - 02/23/2009 Impaired Fasting Glucose - 10/11/2008 Comment: Under 110; See labs 10/12 Hereditary and Idiopathic Peripheral Neuropathy - 10/05/2008 Mixed Hyperlipidemia - 10/05/2008 Bph With Obstruction/Lower Urinary Tract Symptoms - 09/04/2008 Insomnia, unspecified - 09/04/2008 Social History Tobacco Use Smoking status: Former Packs/day: 1.00 Years: 20.00 Additional pack years: 0.00 Total pack years: 20.00 Types: Cigarettes Quit date: 04/06/1980 Years since quittin.2 Smokeless tobacco: Never Vaping Use Vaping Use: Never used Substance Use Topics Alcohol use: Not Currently Comment: stopped 07/19/2022 Drug use: Yes Types: Marijuana Review of Systems Respiratory: Negative. Cardiovascular: Negative. Musculoskeletal: Positive for back pain. OBJECTIVE BP 124/68 Pulse 70 Resp 16 Wt 164 lb 12.8 oz (74.8kg) SpO2 97% Physical Exam Vitals and nursing note reviewed. Constitutional: General: He is awake. He is not in acute distress. Appearance: Normal appearance. He is well-developed and well-groomed. He is not ill-appearing, toxic-appearing or diaphoretic. HENT: Head: Normocephalic. Right Ear: External ear normal. Left Ear: External ear normal. Nose: Nose normal. Eyes: General: Vision grossly intact. Conjunctiva/sclera: Conjunctivae normal. Pupils: Pupils are equal, round, and reactive to light. Neck: Vascular: No JVD. Trachea: Trachea normal. Pulmonary: Effort: Pulmonary effort is normal. No accessory muscle usage, prolonged expiration or respiratory distress. Musculoskeletal: Cervical back: Neck supple. Skin: General: Skin is warm and dry. Capillary Refill: Capillary refill takes less than 2 seconds. Neurological: General: No focal deficit present. Mental Status: He is alert and oriented to person, place, and time. Mental status is at baseline. Psychiatric: Attention and Perception: Attention and perception normal. Mood and Affect: Mood and affect normal. Speech: Speech normal. Behavior: Behavior normal. Behavior is cooperative. Thought Content: Thought content normal. Cognition and Memory: Cognition and memory normal. Judgment: Judgment normal. ASSESSMENT/PLAN: 1. Acute bilateral low back pain with bilateral sciatica - ICD9: 724.2, 724.3, ICD10: M54.42, M54.41 (primary diagnosis) Still with acute on chronic pain. Discussed options for treatment. Okay to refill percocet, hoping to decrease use soon. We will refer to spine center to get their input and he is willing to work with PT to see if that could be helpful. He may also be interested in non-pharm pain management so we will place that referral. Can try topical but this requires compounding so it may need sent to an alternative pharmacy. We will also try starting Cymbalta and see if helpful. - OXYCODONE-ACETAMINOPHEN 5 MG-325 MG TABLET - CONSULT TO [facility] - CONSULT TO [facility] - CONSULT TO PHYSICAL THERAPY - BACLOFEN 2% DICLOFENAC 5% LIDOCAINE 5% TOPICAL - DULOXETINE 30 MG CAPSULE,DELAYED RELEASE 2. Chronic low back pain without sciatica, unspecified back pain laterality - ICD9: 724.2, 338.29, ICD10: M54.50, G89.29 - OXYCODONE-ACETAMINOPHEN 5 MG-325 MG TABLET - CONSULT TO [facility] - CONSULT TO [facility] - CONSULT TO PHYSICAL THERAPY - BACLOFEN 2% DICLOFENAC 5% LIDOCAINE 5% TOPICAL - DULOXETINE 30 MG CAPSULE,DELAYED RELEASE 3. Compression fracture of L1 vertebra with routine healing, subsequent encounter - ICD9: V54.17, ICD10: S32.010D - OXYCODONE-ACETAMINOPHEN 5 MG-325 MG TABLET - CONSULT TO [facility] - CONSULT TO [facility] - CONSULT TO PHYSICAL THERAPY - BACLOFEN 2% DICLOFENAC 5% LIDOCAINE 5% TOPICAL - DULOXETINE 30 MG CAPSULE,DELAYED RELEASE Portions of this note have been entered by ancillary staff. I have reviewed and when necessary edited, so that they are an adequate record of my encounter with this patient Please note that parts of this document were created using voice recognition software and therefore may contain grammatical errors. Patient verbalizes understanding of instructions from today's visit and in agreement with treatment plan. Questions answered. Agrees to call the office if questions, concerns of issues with acute symptoms not improving or if they worsen. See diagnoses and orders for additional plan(s). Allergies and medications were reviewed, list was updated, and refills given if needed. Past medical, surgical, social, and family history reviewed and updated as appropriate. Encouraged proper diet & exercise as well as compliance with taking medications. Age-appropriate health preventative measures were discussed. Return if symptoms worsen or fail to improve, for Keep next scheduled appointment.. MICHI Navarro documented in this encounter [facility] 06-26-2023 Miscellaneous Notes Agree with being seen since his pain is persistent. Pt called in and reports he has had the back pain for 6 weeks and it is just getting worse. He reports he was looking at the [facility] newsletter for bad back, and he said the only thing he wouldn't be able to do was they therapy due to the pain. He states he would like to go over orthopedic surgery etc. Pt scheduled with provider 06/29/23. documented in this encounter [facility] 06-23-2023 Miscellaneous Notes PDMP website checked and validated. All prescriptions have been APPROPRIATELY filled. No suspicious activity was identified. 06/23/2023 by Zeny Lam APRN.CNP Pt called in and reports he is back to wearing the back brace. He states it is working ok, but he thinks he is going to have to take the 12 weeks for it to heal. He states the symptoms change every day. Patient has been identified by name and date of : Yes, Provider Zeny Lam GRAIN SACKER Date 06/23/23 Time 0827. Patient phones for refill(s): Requested Prescriptions Pending Prescriptions Disp Refills oxyCODONE-acetaminophen (PERCOCET) 5-325 mg tablet 28 tablet 0 Sig: Take 1 tablet by mouth every 6 hours as needed for pain for up to 7 days. Date of last office visit in primary care: 05/18/2023 Date of next office visit in primary care: 07/27/2023 Please advise. Thank you. Cyndy Whelan RN. documented in this encounter [facility] 06-19-2023 Miscellaneous Notes Pt notified and voiced understanding. Lizz Smith MA Okay to try the Zanaflex 6 mg but I would suggest if he is taking the higher dose of Zanaflex consistently then he do the repeat INR in the 10 days rather than 14 days since this can interfere with that. Pt states that he is still having some pain but improved some. He is tolerating the Zanaflex 4 mg daily, taking 1 pill every 6 hours along with his percocet which he states he was instructed not to do but state he doesn't drive so he is fine'. He states that the Percocet works so-so but wants to see if he can trying increasing the Zanaflex to 6 mg every 6 hours and see if that helps better. He states that he doesn't need a script for the 6 mg zanaflex at this time unless he knows it helps, he states he can cut the 4 mg tablets in half at this time. Please advise. Lizz Smith MA, documented in this encounter [facility] 06-19-2023 Miscellaneous Notes Pt notified and voiced understanding. Tracker and med list updated. Lizz Smith MA Please let him know to continue with the 5 mg daily dose of his coumadin, we can repeat the INR in 10-14 days to see if it stays within the 2-3 range and to ensure it does not drift back up. Last INR: INR Home CoaguChek 2.9 06/19/2023 Current dose of coumadin is: 5 mg daily. Last date of dose change: 06/12/23. Previous INR (date and result): 06/12/23 3.0 Additional Clinical Information or narrative: no; denies any bleeding, bruising, change in diet, has not missed any doses. Please advise pt. Okay to leave a detailed message. Maribel Oden LPN documented in this encounter [facility] 06-15-2023 Miscellaneous Notes Patient has been identified by name and date of : Yes Patient phones for refill(s): Requested Prescriptions Pending Prescriptions Disp Refills tiZANidine (ZANAFLEX) 4 mg tablet [Pharmacy Med Name: TIZANIDINE HCL 4 MG TABLET] 60 tablet 1 Sig: take 1 tablet by mouth every 6 hours if needed Date of last office visit in primary care: 05/18/2023 Date of next office visit in primary care: 07/27/2023 Please advise. Thank you. Kari Briones LPN. documented in this encounter [facility] 06-15-2023 Miscellaneous Notes Called pt and notified RX sent through and notified of Zeny's recommendations and instructions. Please let him know I think PT could be helpful but they may want to be conservative with the PT given the compression fracture. I will place orders. Unfortunately with [facility] the water therapy is not an option in [facility], I'm not sure what the closest option would be, I know the [facility] in [place] can do the pool therapy. Patient calling was asking about doing Physical therapy for his back pain? Or doing whirlpool or aqua therapy? His insurance [employer] is out of network. Told him [facility] does not have water therapy or whirlpool. Please advise Was asking for his refill also Patient has been identified by name and date of : Patient phones for refill(s): Requested Prescriptions Pending Prescriptions Disp Refills oxyCODONE-acetaminophen (PERCOCET) 5-325 mg tablet 28 tablet 0 Sig: Take 1 tablet by mouth every 6 hours as needed for pain for up to 7 days. Date of last office visit in primary care: 05/18/2023 Date of next office visit in primary care: 07/27/2023 Please advise. Thank you. Tala Torres LPN. documented in this encounter [facility] 06-15-2023 History of Presen t illness Narrative Images from the original note were not included. [facility] SE[facility] CARDIOLOGY Cardiology ([place]) [address] [facility] [id number] OUTPATIENT VISIT DATE 06/14/2023 PRIMARY CARE PHYSICIAN: Zeny Lam [address] [place] [address] HISTORY OF PRESENT ILLNESS: Mr. Brooks is a 77 year old gentleman with a history of hypertension, dyslipidemia, peripheral arterial disease with his left carotid endarterectomy and recurrent DVT/PEs who presents to establish new cardiology follow-up. He denies symptoms of chest pain or pressure. He recently had a fall resulting in a back injury. Prior to his fall, he was very active. He has been somewhat immobile since his recent fall. He has not had symptoms of chest pain or pressure. He denies palpitations, lightheadedness, dizziness, or syncope. PAST CARDIAC HISTORY: Mr. Brooks is a 75 year old male with a past cardiovascular history significant for 1) carotid artery stenosis status post left CEA in 06/2019, 20 to 39% stenosis in the right ICA 2) peripheral artery disease -mild disease at rest 01/2020 3) presumed coronary artery disease-no recent coronary angiogram, however, fixed defect noted on SPECT 06/2019 4) known left bundle branch block 5) recurrent pulmonary embolism (2011, 2014) on long-term anticoagulation with warfarin 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 Carotid stenosis, left 02/21/2019 s/p CEA Closed nondisplaced fracture of distal phalanx of right great toe 01/16/2021 Colonic polyp 11/29/2018 DDD (degenerative disc disease), lumbar 03/08/2014 Elevated prostate specific antigen (PSA) 09/15/2016 Esophageal reflux Fall at home 01/05/2018 Right Rib Fracture Hypertension Hypertrophy of prostate with urinary obstruction and other lower urinary tract symptoms (LUTS) 09/04/2008 With mild night-time symptoms, exam ok as of 09/2008 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 Related to sugar? -- see fasting glucose 2008; Impaired fasting glucose 10/11/2008 Under 110; See labs 10/12 INSOMNIA NOS 09/04/2008 Doing well with as-needed benzo at night Left bundle branch block 05/28/2010 Lumbago 02/23/2009 Lumbosacral spondylosis without myelopathy 08/07/2011 Lung disease [place] Fever Macular hole left eye Macular hole of left eye 06/19/2020 Mixed hyperlipidemia 10/05/2008 Neuropathy Nuclear sclerosis of right eye PE (pulmonary embolism) 09/04/2011 Peripheral vascular disease (HCC) Perirectal abscess 12/12/2008 Postconcussion syndrome 11/11/2011 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) 05/08/2014 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 REMV CATARACT EXTRACAP,INSERT LENS Left TRANSCATH RETRIEVAL,PERCUT 09/20/2012 IVC filter retrieval TRIESENCE INTRAVITREAL INJECTION OS (LEFT EYE) 10/25/2013 VENA CAVA FILTER 09/26/2011 later removed SOCIAL HISTORY Social History Tobacco Use Smoking status: Former Packs/day: 1.00 Years: 20.00 Additional pack years: 0.00 Total pack years: 20.00 Types: Cigarettes Quit date: 04/06/1980 Years since quittin.2 Smokeless tobacco: Never Vaping Use Vaping Use: Never used Substance Use Topics Alcohol use: Not Currently Comment: stopped 07/19/2022 Drug use: Yes Types: Marijuana FAMILY HISTORY Problem Relation Age of Onset Hypertension Mother (longevity on mom's side) Cataract Mother Coronary Artery Disease Father father who of sudden cardiac arrest age 74 Heart Father heart stopped Blood Disease Brother pulmonary embolism history No Known Problems Maternal Grandmother No Known Problems Maternal Grandfather No Known Problems Paternal Grandmother Heart Paternal Grandfather Colon Cancer Other no close relatives known Prostate Cancer Other none Emphysema Other none ALLERGIES: ALLERGIES Allergen Reactions Cyclobenzaprine Other: See Comments Double vision Gabapentin Intolerance Keflex [Cephalexin] Rash MEDICATIONS: oxyCODONE-acetaminophen (PERCOCET) 5-325 mg tablet Take 1 tablet by mouth every 6 hours as needed for pain for up to 7 days. Back Brace (BACK SUPPORT S/M) misc Use as instructed. tiZANidine (ZANAFLEX) 4 mg tablet Take 1 tablet by mouth every 6 hours as needed. lisinopril (ZESTRIL) 20 mg tablet Take 2 tablets by mouth once daily. Adjust dose as directed based on blood pressure readings LORazepam (ATIVAN) 1 mg tablet Take 2 tablets by mouth at bedtime as needed for up to 120 days. For insomnia LORazepam (ATIVAN) 2 mg tab Take 1 tablet by mouth at bedtime as needed (insomnia) for up to [address] (PROTONIX) 40 mg tablet take 1 tablet by mouth once daily ON AN EMPTY STOMACH 30 MINUTES PRIOR TO A MEAL famotidine (PEPCID) 40 mg tablet Take 1 tablet by mouth once daily as needed. warfarin (COUMADIN) 5 mg tablet Take 1.5 tablets on Sundays and 2 tablets Thursday through Saturdays rosuvastatin (CRESTOR) 40 mg tablet Take 1 tablet by mouth once daily. potassium chloride (KLOR-CON 10) 10 mEq tablet Take 1 tablet by mouth twice daily. Cholecalciferol, Vitamin D3, 75 mcg (3,000 unit) tab Take by mouth. hydrocortisone 2.5 % cream Seldom vitamin B complex (B COMPLEX 1 ORAL) magnesium oxide 400 mg magnesium cap Take 1 capsule by mouth once daily. (Patient taking differently: Take 500 mg by mouth two times a day. 500mg daily) SAW PALMETTO ORAL Take 400 mg by mouth twice daily. coenzyme Q10 (COENZYME Q-10) 100 mg cap capsule Take 400 mg by mouth once daily. Cyanocobalamin 2,500 mcg subl Dissolve under the tongue twice daily. calcium, elemental, tab Take 600 mg by mouth twice daily. multivitamin (SOFYA MULTIVITAMIN) tablet Take 1 tablet by mouth once daily. REVIEW OF SYSTEMS: Review of Systems Constitutional: Negative for chills, fever, malaise/fatigue and weight loss. HENT: Negative for hearing loss and sore throat. Eyes: Negative for blurred vision and double vision. Respiratory: Negative. Cardiovascular: Negative. Gastrointestinal: Negative. Genitourinary: Negative for dysuria, frequency, hematuria and urgency. Musculoskeletal: Negative. Skin: Negative. Neurological: Negative for dizziness, seizures, loss of consciousness, weakness and headaches. Endo/Heme/Allergies: Negative for environmental allergies. Does not bruise/bleed easily. Psychiatric/Behavioral: Negative for depression. PHYSICAL EXAMINATION: BP 84/52 Pulse 64 Wt 166 lb (75.3kg) SpO2 98% General: Pleasant gentleman sitting comfortable no apparent distress he is alert and oriented x 3 HEENT: Carotid upstrokes are brisk bilaterally without bruits no JVD appreciated. Pulmonary: Lungs are clear no rales, wheezes, rhonchi Cardiovascular: Normal S1, S2 with regular rate and rhythm. No murmurs, rubs, or gallops Extremities: Warm, well-perfused, no lower extremity edema. 2+ distal pulses CARDIOVASCULAR MEDICINE TESTING: Regadenoson Myoview Stress 06/06/2019: CONCLUSIONS: 1. SPECT Perfusion Study: Abnormal. 2. There is no scintigraphic evidence for inducible ischemia. 3. There is a small (<10%) fixed perfusion defect in the RCA territory. 4. Functional capacity N/A (pharmacological). 5. Left ventricle is normal in size. The left ventricle systolic function is normal. 6. Right ventricle is normal in size. The right ventricle systolic function is normal. 7. This is a low risk scan. 8. Incidental Findings from limited non-diagnostic CTAC: - Coronary calcifications visualized. Gated Stress FBP Gated Rest FBP LVEF % 71 66 Echocardiogram 04/16/2021: - The left ventricle is normal in size. Left ventricular systolic function is normal. EF = 55 5% (visual est.) Grade I left ventricular diastolic dysfunction. - The right ventricle is normal in size. Right ventricular systolic function is normal. - No significant valvular disease - Exam was compared with the prior echocardiographic exam performed on 09/18/2011. Carotid Ultrasound 04/08/2023: IMPRESSION Compared to prior study of 12/11/2022, No significant change. RIGHT SIDE Common carotid artery: Plaque visualized without evidence of hemodynamically significant stenosis. Internal carotid artery: 20-39% stenosis. Vertebral artery: Patent and antegrade flow noted. Subclavian artery: Plaque visualized without evidence of hemodynamically significant stenosis. LEFT SIDE Common carotid artery: Plaque visualized without evidence of hemodynamically significant stenosis. Endarterectomy patch at distal measuring 1.1 cm. Internal carotid artery: 20-39% stenosis. Endarterectomy patch from origin to proximal . Vertebral artery: Patent and antegrade flow noted. Abnormal signal suggests pre-steal. Subclavian artery: Plaque visualized without evidence of hemodynamically significant stenosis. I have personally reviewed the Electrocardiogram and Stress Test: Nuclear (Non-PET). IMPRESSION: Mr. Brooks is a 77 year old gentleman with risk factors for coronary disease which include hypertension, dyslipidemia, known carotid artery disease, prior significant smoking history who presents the office to establish new cardiology follow-up. He had a abnormal stress test in 2019 demonstrating small area of possible inferior wall ischemia. However, he remains completely asymptomatic. PLAN AND RECOMMENDATIONS: 1. Screening for ischemic heart disease - ICD9: V81.0, ICD10: Z13.6 (primary diagnosis) No symptoms concerning for angina. Continue current medical therapy and risk factor modification - ECG COMPLETE 2. Primary hypertension - ICD9: 401.9, ICD10: I10 Blood pressure is on the lower side today. I have asked him to start checking his blood pressure at home. He should decrease his lisinopril to 20 mg daily if he per has persistent hypotension 3. Mixed hyperlipidemia - ICD9: 272.2, ICD10: E78.2 Maintained on Crestor 40 mg daily. Blood work from July 2022 was reviewed. LDL cholesterol 47 mg/dL 4. History of left-sided carotid endarterectomy - ICD9: V45.89, ICD10: Z98.890 Is following with vascular surgery 5. 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) - ICD9: 415.19, ICD10: I26.99 6. PAD (peripheral artery disease) (HCC) - ICD9: 443.9, ICD10: I73.9 7. Bilateral carotid artery stenosis - ICD9: 433.10, 433.30, ICD10: I65.23 Sunny Mercedes MD documented in this encounter [facility] 06-12-2023 Miscellaneous Notes Anticoag tracker updated. See other phone note dated 06/11 for Coumadin instructions. Pt was notified. See other encounter. Last INR: INR Home CoaguChek 3.0 06/12/2023 Current dose of coumadin is: this was patient's orders for the past week which he states he followed exactly. He should hold coumadin dose today (06/04) then take 5 mg on sat and sun, 7.5 mg on thu. and ., then take the 5 mg dose again on thu. and . then repeat INR on Thursday. Last date of dose change: see above under current dose of coumadin. Previous INR (date and result): 06/05/23 4.5 Additional Clinical Information or narrative: no documented in this encounter [facility] 06-12-2023 Miscellaneous Notes TC to patient who verbalized understanding of providers message below. Patient agreeable to 5 mg coumadin x 1 week with a recheck next Thursday. No questions at this time. YENNY Abdi Understood, I am sorry to hear the brace has not been very helpful yet. Please let him know his INR is back, level is 3 so at the high end of goal range 2-3. IF he is agreeable I would like for him to take 5 mg of coumadin daily starting today and repeat his INR in 1 week. Patient calling no need to call Dr Leal, his is no longer having sciatic type pain, said the pain is in the muscles. He said the back brace was a waste of one hundred dollars, does nothing to help him. He wanted to save Zeny from calling Dr Leal to get him in for an appt. documented in this encounter [facility] 06-10-2023 Miscellaneous Notes MARITZA: 06/03/2023 w/Dr. Leal Patient with complaints of bilateral lumbar pain that does not radiate. During this OV and the prior OV on 01/19/2023, patient has not complained of radiating pain. MRI lumbar spine was reviewed with the patient. Finding is consistent with traumatic L1 compression fracture. In discussing treatment options, the patient wants to stay in a conservative course. Recommend lumbar support brace to provide support and healing for L1 compression fracture. Interventional procedure options discussed. L1 kyphoplasty was discussed but patient at this time wants to defer it and stay with conservative course. No new medication was prescribed. Encouraged regular home exercise program. F/U in 3 months Rich Sanchez requested we send a message to see if Dr. Leal can help treat his sciatic pain. I let him know I would pass along his request. documented in this encounter [facility] 06-08-2023 Miscellaneous Notes PDMP website checked and validated. All prescriptions have been APPROPRIATELY filled. No suspicious activity was identified. 06/08/2023 by Zeny Lam APRN.KAYLA Pt called for refill on medication below. His back pain is severe. Patient has been identified by name and date of : Yes, Provider Nathalie Lam NP Date 06/08/23 Time 8:14 am Patient phones for refill(s): Requested Prescriptions Pending Prescriptions Disp Refills oxyCODONE-acetaminophen (PERCOCET) 5-325 mg tablet 28 tablet 0 Sig: Take 1 tablet by mouth every 6 hours as needed for pain for up to 7 days. Date of last office visit in primary care: 05/18/2023 Date of next office visit in primary care: 07/27/2023 Thank you. Maribel Oden LPN. documented in this encounter [facility] 06-05-2023 Miscellaneous Notes Pt calling in to see if Zeny had looked at his INR and given instructions yet. Read Zeny's instructions to pt and had them write them down. Then also sent the instructions tp pt's MyChart for his review as well. Pt aware to repeat INR next Thu. Please let patient know INR up again at 4.5, he should hold coumadin dose today then take 5 mg on sat and thu, 7.5 mg on thu. and ., then take the 5 mg dose again on and . then repeat INR on Thursday. Last INR: 4.5 06/05/23 Lab Current dose of coumadin: 7.5mg daily Last date of dose change: 05/19/23 Previous INR (date & result): 2.6 05/26/23 Additional clinical information or narrative: No diet changes, pt states his diet is all over the place as usual, not cosistent. No bleeding or bruising. documented in this encounter [facility] 06-05-2023 Miscellaneous Notes Letter taken to medical records to be mailed out this day. Julieth Avila LPN documented in this encounter [facility] 06-04-2023 Miscellaneous Notes Received patient's MyChart information with DME information. Back brace order, demographics, insurance cards, photo ID, and office visit note has been faxed to [facility] in [place] . Fax confirmation received. The intake department at [facility] will be in contact with the patient. If patient should have any questions regarding the back brace, he should contact [facility] directly at . Notified the patient via [employer]. Patient called back to inform Staff that [facility] has advised that the order should be sent to [facility]. Patient did not have contact info. Informed Patient that I couldn't find any information online for [facility]. Patient stated he will call [facility] back to confirm that this is the correct DME. Patient advised to send us preferred DME information via [employer] message. Patient is agreeable to do this. Saida Aggarwal Patient notified [facility] staff that insurance will not cover back brace supplied by [facility]. Patient requesting order be sent to [facility] in [place]. Patient did not provide contact information for [facility]. Patient requesting a call to notify him once order is sent to [facility]. Please advise, Saida Aggarwal Back brace was ordered by Dr. Leal during today's office visit. Awaiting on office visit notes. Once notes are signed the order will be emailed to [facility]. documented in this encounter [facility] 06-03-2023 Miscellaneous Notes Noted. Pt states Dr Leal does not recommend surgery, states he is ordering a back brace for him from [facility] in [place]. Corrina Velarde LPN documented in this encounter [facility] 06-03-2023 History of Presen t illness Narrative [facility] Date: June 03, 2023 - 1:46 PM Chief Complaint: back pain SUBJECTIVE: Mr. Brooks presents to the [facility] for a follow up appointment regarding back pain. He fell on 05/14/2023. He sustained L1 compression fracture. He is having persistent pain. The pain is located in the middle lumbar region and does not radiate. // The pain is described as sharp and shooting and is rated as 8 on a scale of 0-10. Symptoms interfere with physical activity, walking, sleeping, cooking, household cleaning, lifting, and social activities. The pain is exacerbated by unable to pinpoint exacerbating factors/positions. The pain is mitigated by medications. REVIEW OF SYSTEMS: Constitutional: (-) Fever (-) Night Sweats (-) Weight Gain (-) Weight Loss (-) Fatigue Cardiovascular: (-) Chest Pain (-) Palpitations (-) Lightheadedness (-) Swelling of Ankles (-) Hx Heart Surgery Respiratory: (-) Shortness of Breath (-) Cough (-) Wheezing (-) Snoring Gastrointestinal: (-) Incontinence (-) Abdominal Pain (-) Diarrhea (+) Constipation (-) Nausea/Vomiting (-) Heart Burn Endocrine: (-) Thyroid Disorder (-) Diabetes Hematologic: (+) Prolonged Bleeding (+) Easy Bruising Genitourinary: (-) Incontinence (+) Frequency (-) Urinary Urgency Skin: (-) Rashes (-) Itching (-) Other Lesions Neurologic: (-) Headache (-) Double Vision (-) Confusion (-) Paralysis Psychiatric: (-) Depression (-) Anxiety (-) Delusions (-) Hallucinations (-) Personal History of Alcohol or Substance Abuse (-) Family History of Alcohol or Substance Abuse 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 Carotid stenosis, left 02/21/2019 s/p CEA Closed nondisplaced fracture of distal phalanx of right great toe 01/16/2021 Colonic polyp 11/29/2018 DDD (degenerative disc disease), lumbar 03/08/2014 Elevated prostate specific antigen (PSA) 09/15/2016 Esophageal reflux Fall at home 01/05/2018 Right Rib Fracture Hypertension Hypertrophy of prostate with urinary obstruction and other lower urinary tract symptoms (LUTS) 09/04/2008 With mild night-time symptoms, exam ok as of 09/2008 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 Related to sugar? -- see fasting glucose 2008; Impaired fasting glucose 10/11/2008 Under 110; See labs 10/12 INSOMNIA NOS 09/04/2008 Doing well with as-needed benzo at night Left bundle branch block 05/28/2010 Lumbago 02/23/2009 Lumbosacral spondylosis without myelopathy 08/07/2011 Lung disease [place] Fever Macular hole left eye Macular hole of left eye 06/19/2020 Mixed hyperlipidemia 10/05/2008 Neuropathy Nuclear sclerosis of right eye PE (pulmonary embolism) 09/04/2011 Peripheral vascular disease (HCC) Perirectal abscess 12/12/2008 Postconcussion syndrome 11/11/2011 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) 05/08/2014 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 REMV CATARACT EXTRACAP,INSERT LENS Left TRANSCATH RETRIEVAL,PERCUT 09/20/2012 IVC filter retrieval TRIESENCE INTRAVITREAL INJECTION OS (LEFT EYE) 10/25/2013 VENA CAVA FILTER 09/26/2011 later removed ALLERGIES Allergen Reactions Cyclobenzaprine Other: See Comments Double vision Gabapentin Intolerance Keflex [Cephalexin] Rash Current Outpatient Medications Medication Sig Back Brace (BACK SUPPORT S/M) misc Use as instructed. oxyCODONE-acetaminophen (PERCOCET) 5-325 mg tablet Take 1 tablet by mouth every 6 hours as needed for pain for up to 7 days. tiZANidine (ZANAFLEX) 4 mg tablet Take 1 tablet by mouth every 6 hours as needed. lisinopril (ZESTRIL) 20 mg tablet Take 2 tablets by mouth once daily. Adjust dose as directed based on blood pressure readings polyethylene glycol 3350 17 gram/dose powder Take 1 Cap-Full by mouth once daily as needed for constipation. Dissolve dose in 4 - 8 ounces of liquid and take as directed. LORazepam (ATIVAN) 1 mg tablet Take 2 tablets by mouth at bedtime as needed for up to 120 days. For insomnia LORazepam (ATIVAN) 2 mg tab Take 1 tablet by mouth at bedtime as needed (insomnia) for up to [address] (PROTONIX) 40 mg tablet take 1 tablet by mouth once daily ON AN EMPTY STOMACH 30 MINUTES PRIOR TO A MEAL famotidine (PEPCID) 40 mg tablet Take 1 tablet by mouth once daily as needed. warfarin (COUMADIN) 5 mg tablet Take 1.5 tablets on Sundays and 2 tablets Thursday through Saturdays rosuvastatin (CRESTOR) 40 mg tablet Take 1 tablet by mouth once daily. potassium chloride (KLOR-CON 10) 10 mEq tablet Take 1 tablet by mouth twice daily. ascorbic acid (VITAMIN C ORAL) Take 2,000 Units by mouth once daily. Cholecalciferol, Vitamin D3, 75 mcg (3,000 unit) tab Take by mouth. aspirin 81 mg cap Take by mouth. hydrocortisone 2.5 % cream Seldom vitamin B complex (B COMPLEX 1 ORAL) magnesium oxide 400 mg magnesium cap Take 1 capsule by mouth once daily. (Patient taking differently: Take 500 mg by mouth two times a day. 500mg daily) SAW PALMETTO ORAL Take 400 mg by mouth twice daily. coenzyme Q10 (COENZYME Q-10) 100 mg cap capsule Take 400 mg by mouth once daily. Cyanocobalamin 2,500 mcg subl Dissolve under the tongue twice daily. calcium, elemental, tab Take 600 mg by mouth twice daily. multivitamin (SOFYA MULTIVITAMIN) tablet Take 1 tablet by mouth once daily. No current facility-administered medications for this visit. I have reviewed the nurses notes and I am aware of the family/social history. Since the last evaluation the medical history has not changed. PDMP website checked and validated. All prescriptions have been APPROPRIATELY filled. No suspicious activity was identified. 06/03/2023 by Mckinley Leal MD Narcotic Agreement reviewed and signed?: N/A on June 03, 2023 Urine Panel: No results found for: UQCANN, UQBNZL, ZFO5HXH, UQAMPH, UQMAMP, UQBUPRE, UQNORBUP, UQMTHD, UQEDDP, UQTRAM, UQDTRM, UQFNTL, UQNFTL, UQCODE, UQMORP, UQDCDN, UQHCOD, UQOXYC, UQHMOR, UQOXYM, UQCREA, UQPH, UQSPGR, UQOXID, UQSPQ The pain panel was N/A PHYSICAL EXAMINATION: Performed in conjunction with observation. The patient was alert and oriented x3. The patient was in no acute distress. Lungs: Clear, negative for dyspnea or distress. CVR: Regular Rate. Negative for SOB or peripheral edema. Neck: Supple. The range of motion was intact. Back: Range of motion of the trunk was intact. Midline tenderness over the L1 level.. SLR: Negative Facet Loading: Negative with axial loading and extension. SI joint: Negative PSIS tenderness. Extremities: no reported edema or erythema. Motor: Negative focal deficits Sensory: Intact to light touch and sharp throughout the lower extremities Gait: Slow to stand. Otherwise, within normal limits ASSESSMENT: Compression fracture of l1 vertebra, initial encounter ([facility]) (primary encounter diagnosis) PLAN: Prior available imaging studies were reviewed. Findings were discussed. Injection history was reviewed. Medication use and compliance were reviewed. 1. MRI lumbar spine was reviewed with the patient. Finding is consistent with traumatic L1 compression fracture. In discussing treatment options, the patient wants to stay in a conservative course. Recommend lumbar support brace to provide support and healing for L1 compression fracture. 2. Interventional procedure options discussed. L1 kyphoplasty was discussed but patient at this time wants to defer it and stay with conservative course. 3. No new medication was prescribed. 4. Encouraged regular home exercise program. 5) F/U in 3 months The treatment plan was discussed with the patient during the office visit and they verbalized an understanding of it. I have discussed and confirmed the above treatment plan with the patient and I have reviewed the nurses notes and I am aware of the family/social history. I have confirmed ROS findings. Mckinley Leal MD cc: Dr. Zeny Lam APRN.DELIVERY CLERK cc: No referring provider defined for this encounter. Phone: N/A Fax: Results of consultation to be transmitted via electronic medical record for those providers who practice within [facility] or with access to [email or web address] via MD Connect, or via letter. 1. This document has been created with the use of voice recognition technology. It may contain inaccuracies: (e.g. misspellings, inaccurate syntax or word sense) that have escaped review. 2. The nurse practitioner, nursing staff and medical assistants are a major part of YOUR TREATMENT TEAM and will be handling your phone calls and inquiries, if any. Unless explicitly told otherwise at the time of your office visit, your study results and ensuing treatment plans will be discussed during your follow-up appointment. If you do not have a follow-up appointment and wish to discuss any issues, please set up an appointment. 3. It is my practice to not fill disability or any other insurance-related forms/documentation. All of the office notes, study results, and other pertinent documentation generated as part of your evaluation will be available to you and to your Primary Care Physician (PCP). Use of this material to complete such forms will be at the discretion of your PCP/referring physician. documented in this encounter [facility] 06-02-2023 Miscellaneous Notes Patient is scheduled with Dr. Leal tomorrow. [facility] states the physician is Dr. Yves Mcqueen with interventional radiology. Will notify Dr. Leal when he returns to office tomorrow. Dr. Leal has reviewed patient's lumbar MRI results. Dr. Leal recommends the patient to proceed with a kyphoplasty but will need to be seen in the office. Per. Dr. Leal OK to double book on Thursday. Email has been sent to [facility] to see if they have a physician they recommend to the the patient in sooner. [facility] requires 10 business days for prior authorization and Dr. Leal is out of the office from 06/12/23-06/22/23. Awaiting response from [facility]. Dr. Leal does perform kyphoplasty. Will notify Dr. Leal of MRI results. Routed to [facility] pain clinical pool. Phone call to pain management in [place] to see if Dr. Leal performs or if patient needs to be sent to spine surgery. Left detailed message on nurse triage line to contact our office. Tammy Wang MA Laura, I spoke with our mutual patient Rich and went over recent MRI results, lumbar MRI showed compression fracture at L1. Discussed results and possible need for kyphoplasty. He is on coumadin. Do you or does anyone in your office do kyphoplasty or do you have a suggestion for who to send him to see. Thank you! Zeny Lam APRN.KAYLA documented in this encounter [facility] 05-29-2023 Miscellaneous Notes PDMP website checked and validated. All prescriptions have been APPROPRIATELY filled. No suspicious activity was identified. 05/29/2023 by Zeny Lam APRN.CNP Patient calls and states that he is not due for medication till Thursday, but he wanted to make sure that he got the refill by then. Patient states that his back pain is getting better. Patient has done his one ice regimen. Patient hopes that this is the last refill he is going to need for pain medication. Please review and advise, Tammie Munguia RN documented in this encounter [facility] 05-29-2023 History of Presen t illness Narrative Radiology Service Progress Note PATIENT NAME: Alex Brooks DATE OF SERVICE: May 29, 2023 TIME: 1:55 PM PATIENT IDENTITY VERIFICATION COMPLETED USING TWO (2) IDENTIFIERS: Name and Date of confirmed by patient verbally. FALL SCREENING: Has the patient had 2 falls in the last year or 1 fall with injury or currently using an Ambulatory Assistive Device (Walker, Cane, Wheelchair, Crutches, etc.)? No PATIENT GENDER DATA: Male PATIENT RELEVANT IMPLANT DATA REVIEWED: Yes PATIENT PRESENTS WITH AN IMPLANTABLE OR ATTACHED REGULATORY TECHNICIAN: No RADIOLOGY DEPARTMENT: MR; Exam(s) Completed: Spine: Lumbar spine PERIPHERAL IV DATA: Not applicable SIGNED BY: RT Chris(R) May 29, 2023 1:55 PM documented in this encounter [facility] 05-26-2023 Miscellaneous Notes Pt notified and verbalized understanding. Tammy Wang MA INR much improved, please let him know to continue the 7.5 mg dose daily and repeat INR in 10 days (do on ThursdayJune 04 so we can ensure INR is in range prior to the weekend). Thanks! Last INR: 2.6 05/26/23 Home CoaguChek Current dose of coumadin: 7.5mg daily Last date of dose change: 05/19/23 Previous INR (date & result): 5.5 05/19/23 Additional clinical information or narrative: No diet changes, pt states his diet is all over the place as usual, not cosistent. No bleeding or bruising. Corrina Velarde LPN documented in this encounter [facility] 05-26-2023 Miscellaneous Notes MARITZA: 01/19/2023 w/Dr. Leal PLAN: The patient continues to have intermittent back and radicular pain symptoms. We discussed multicomponent pain source. He has significant lumbar canal stenosis at L4-5 which results in radicular pain symptoms. He also has lumbar facet arthropathy and myofascial pain component. He has taken intermittent pain medications and has taken them appropriately. Anticipate that he is still going to have intermittent pain associated with spinal stenosis and may continue with intermittent oxycodone use. Interventional procedure options discussed. None at this time. No new medication was prescribed from our office today. Encouraged regular home exercise program. F/U in PRN basis Procedures: 12/23/2022: Bilateral L4, L5, S1 RFA 05/10/2020: Bilateral L4, L5, S1 RFA Current PM Meds: NONE Past PM Meds: NONE documented in this encounter [facility] 05-26-2023 History of Presen t illness Narrative Images from the original note were not included. [facility] [place] DEPARTMENT OF VASCULAR SURGERY OUTPATIENT VISIT DATE May 26, 2023 OUTPATIENT VISIT TYPE ESTABLISHED SERVICE DATE: 05/26/2023 SERVICE TIME: 10:26 AM PRIMARY CARE PHYSICIAN: Zeny Lam APRN.DELIVERY CLERK HISTORY OF PRESENT ILLNESS: Mr. Brooks is a 77 year old male who presents today for a vascular surgery follow-up visit for peripheral arterial disease and carotid disease. Denies focal neurologic deficit or lifestyle limiting claudication 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 Carotid stenosis, left 02/21/2019 s/p CEA Closed nondisplaced fracture of distal phalanx of right great toe 01/16/2021 Colonic polyp 11/29/2018 DDD (degenerative disc disease), lumbar 03/08/2014 Elevated prostate specific antigen (PSA) 09/15/2016 Esophageal reflux Fall at home 01/05/2018 Right Rib Fracture Hypertension Hypertrophy of prostate with urinary obstruction and other lower urinary tract symptoms (LUTS) 09/04/2008 With mild night-time symptoms, exam ok as of 09/2008 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 Related to sugar? -- see fasting glucose 2008; Impaired fasting glucose 10/11/2008 Under 110; See labs 10/12 INSOMNIA NOS 09/04/2008 Doing well with as-needed benzo at night Left bundle branch block 05/28/2010 Lumbago 02/23/2009 Lumbosacral spondylosis without myelopathy 08/07/2011 Lung disease [place] Fever Macular hole left eye Macular hole of left eye 06/19/2020 Mixed hyperlipidemia 10/05/2008 Neuropathy Nuclear sclerosis of right eye PE (pulmonary embolism) 09/04/2011 Peripheral vascular disease (HCC) Perirectal abscess 12/12/2008 Postconcussion syndrome 11/11/2011 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) 05/08/2014 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 REMV CATARACT EXTRACAP,INSERT LENS Left TRANSCATH RETRIEVAL,PERCUT 09/20/2012 IVC filter retrieval TRIESENCE INTRAVITREAL INJECTION OS (LEFT EYE) 10/25/2013 VENA CAVA FILTER 09/26/2011 later removed SOCIAL HISTORY Social History Tobacco Use Smoking status: Former Packs/day: 1.00 Years: 20.00 Additional pack years: 0.00 Total pack years: 20.00 Types: Cigarettes Quit date: 04/06/1980 Years since quittin.1 Smokeless tobacco: Never Vaping Use Vaping Use: Never used Substance Use Topics Alcohol use: Not Currently Comment: stopped 07/19/2022 Drug use: Yes Types: Marijuana MEDICATIONS: oxyCODONE-acetaminophen (PERCOCET) 5-325 mg tablet Take 1 tablet by mouth every 6 hours as needed for pain for up to 7 days. tiZANidine (ZANAFLEX) 4 mg tablet Take 1 tablet by mouth every 6 hours as needed. lisinopril (ZESTRIL) 20 mg tablet Take 2 tablets by mouth once daily. Adjust dose as directed based on blood pressure readings polyethylene glycol 3350 17 gram/dose powder Take 1 Cap-Full by mouth once daily as needed for constipation. Dissolve dose in 4 - 8 ounces of liquid and take as directed. LORazepam (ATIVAN) 1 mg tablet Take 2 tablets by mouth at bedtime as needed for up to 120 days. For insomnia LORazepam (ATIVAN) 2 mg tab Take 1 tablet by mouth at bedtime as needed (insomnia) for up to [address] (PROTONIX) 40 mg tablet take 1 tablet by mouth once daily ON AN EMPTY STOMACH 30 MINUTES PRIOR TO A MEAL famotidine (PEPCID) 40 mg tablet Take 1 tablet by mouth once daily as needed. warfarin (COUMADIN) 5 mg tablet Take 1.5 tablets on Sundays and 2 tablets Thursday through Saturdays rosuvastatin (CRESTOR) 40 mg tablet Take 1 tablet by mouth once daily. potassium chloride (KLOR-CON 10) 10 mEq tablet Take 1 tablet by mouth twice daily. ascorbic acid (VITAMIN C ORAL) Take 2,000 Units by mouth once daily. Cholecalciferol, Vitamin D3, 75 mcg (3,000 unit) tab Take by mouth. aspirin 81 mg cap Take by mouth. hydrocortisone 2.5 % cream Seldom vitamin B complex (B COMPLEX 1 ORAL) magnesium oxide 400 mg magnesium cap Take 1 capsule by mouth once daily. (Patient taking differently: Take 500 mg by mouth two times a day. 500mg daily) SAW PALMETTO ORAL Take 400 mg by mouth twice daily. coenzyme Q10 (COENZYME Q-10) 100 mg cap capsule Take 400 mg by mouth once daily. Cyanocobalamin 2,500 mcg subl Dissolve under the tongue twice daily. calcium, elemental, tab Take 600 mg by mouth twice daily. multivitamin (SOFYA MULTIVITAMIN) tablet Take 1 tablet by mouth once daily. ALLERGIES: ALLERGIES Allergen Reactions Cyclobenzaprine Other: See Comments Double vision Gabapentin Intolerance Keflex [Cephalexin] Rash PHYSICAL EXAM: There were no vitals taken for this visit. General: Alert and oriented Extremities: No deformity, no edema or tenderness, no joint swelling or clubbing. Neurological: Normal cognition and motor skills. Vascular: doppler signals bilaterally Diagnostic tests reviewed for today's visit: Most recent labs Most recent imaging Carotid Duplex Compared to prior study of 12/11/2022, No significant change. RIGHT SIDE Common carotid artery: Plaque visualized without evidence of hemodynamically significant stenosis. Internal carotid artery: 20-39% stenosis. Vertebral artery: Patent and antegrade flow noted. Subclavian artery: Plaque visualized without evidence of hemodynamically significant stenosis. LEFT SIDE Common carotid artery: Plaque visualized without evidence of hemodynamically significant stenosis. Endarterectomy patch at distal measuring 1.1 cm. Internal carotid artery: 20-39% stenosis. Endarterectomy patch from origin to proximal . Vertebral artery: Patent and antegrade flow noted. Abnormal signal suggests pre-steal. Subclavian artery: Plaque visualized without evidence of hemodynamically significant stenosis. IMPRESSION: Mr. Brooks is a 77 year old male with peripheral arterial disease and carotid artery stenosis . PLAN and RECOMMENDATIONS: PVRs and carotid in one year Overall stable Recommend continued medical management- blood pressure and cholesterol control SIGNATURE: Edgar Loaiza DO PATIENT NAME: Alex Brooks DATE: May 26, 2023 TIME: 10:26 AM documented in this encounter [facility] 05-25-2023 Miscellaneous Notes Pt informed , verbalized understanding. Brenda Carlson Please return call and let him know that typically when doing an MRI for the type of issues he is having we do not do the MRI with contrast. Contrast is helpful in looking for issues such as tumors, lesions or concerns of blood flow issues. In his situation the contrast is not indicated at this time and the use of contrast can come with increased strain on the kidneys. Pt calling in regarding his MRI scheduled for this Thursday. He is wanting to make sure that an MRI without contrast would show muscular problems. Does he need to have contrast to show that? He states he wrote in his [employer] msg that his back was feeling better but he states that it really isn't much better. But pt states if they make the MRI with and without contrast, does that mean the process has to start all over again with his insurance to get the MRI reapproved? He does not want to do that as he does not want to delay the MRI any further. Please return call to pt with msg. He does not want a ZIIBRAt msg. Please see pt message Brenda Carlson documented in this encounter [facility] 05-23-2023 Miscellaneous Notes Patient calling with regards to his upcoming MRI. Patient denies any new or worsening symptoms of which a provider is not aware:Yes pt will call his pcp office Thursday to discuss further. Pt also sent a [employer] message to his pcp today. Rosalia Durand LPN documented in this encounter [facility] 05-22-2023 Miscellaneous Notes PDMP website checked and validated. All prescriptions have been APPROPRIATELY filled. No suspicious activity was identified. 05/22/2023 by Zeny aLm APRN.CNP Patient has been identified by name and date of : Yes, Provider Zeny Lam Patient phones for refill(s): Requested Prescriptions Pending Prescriptions Disp Refills oxyCODONE-acetaminophen (PERCOCET) 5-325 mg tablet 28 tablet 0 Sig: Take 1 tablet by mouth every 6 hours as needed for pain for up to 7 days. Date of last office visit in primary care: 09/23/2021 Date of next office visit in primary care: Visit date not found Pt asking if Rx can be written now with a refill date of 05/23/23 Please advise. Thank you. Corrina Velarde LPN. documented in this encounter [facility] 05-19-2023 Miscellaneous Notes Patient called and notified of coumadin/INR instructions. Patient voiced understanding and read back instructions. Tammie Munguia RN Please call and advise him to hold his dose today and tomorrow and then resume coumadin at 7.5 mg daily after that and repeat INR in 1 week. [facility] Main lab reporting an urgent INR 5.5. Please advise pt. See below message also. Attempted to call pcp nurse- no answer. Notified Jennifer, working near Zeny's office, who agrees to inform Zeny. Last INR: INR Home CoaguChek 5.5 05/19/2023 Current dose of coumadin is: 7.5 mg Thursday; 10 mg all other days. Last date of dose change: 04/10/2023. Previous INR (date and result): 2.6 05/05/2023 Additional Clinical Information or narrative: No diet changes except patient has not had much of an appetite since Percocet. Patient has not been eating as much Patient stopped taking percocet today. Bruising to back and elbow due to previous fall. No alcohol at all or green leaf vegetables. documented in this encounter [facility] 05-19-2023 Miscellaneous Notes Patient calling with MRI question. Question answered. Graciela Parker RN documented in this encounter [facility] 05-18-2023 History of Presen t illness Narrative Images from the original note were not included. SUBJECTIVE Alex Brooks is a 77 year old male here today for a check up on his medical problems. Chief Complaint Patient presents with: ED Follow-up HPI Alex Brooks is a 77 year old male. He presents today for ER follow up. Issues with pain to the lower spine, just above the buttock. Pain is bilaterally and per patient feels muscular. Seen in the ED for this at [facility]. Percocet has not been helping a whole lot. In ER he had a CT spine lumbar. Some constipation but on percocet. Tried ice and helped a little. No numbness, tingling, weakness down the legs and no loss of bowel or bladder control. MRI done 2022 lower lumbar degenerative change as noted. Continued worsening of spinal stenosis at L4-L5, now severe. Would expect symptoms of spinal claudication and radiculopathy based on the findings from this exam. No impingement of the distal cord. His medications were reviewed today and his list is now up to date. Medications Current Outpatient Medications Medication Sig tiZANidine (ZANAFLEX) 4 mg tablet Take 1 tablet by mouth every 6 hours as needed. oxyCODONE-acetaminophen (PERCOCET) 5-325 mg tablet Take 1 tablet by mouth every 6 hours as needed for pain for up to 7 days. Do not start before May 16, 2023. lisinopril (ZESTRIL) 20 mg tablet Take 2 tablets by mouth once daily. Adjust dose as directed based on blood pressure readings polyethylene glycol 3350 17 gram/dose powder Take 1 Cap-Full by mouth once daily as needed for constipation. Dissolve dose in 4 - 8 ounces of liquid and take as directed. LORazepam (ATIVAN) 1 mg tablet Take 2 tablets by mouth at bedtime as needed for up to 120 days. For insomnia LORazepam (ATIVAN) 2 mg tab Take 1 tablet by mouth at bedtime as needed (insomnia) for up to [address] (PROTONIX) 40 mg tablet take 1 tablet by mouth once daily ON AN EMPTY STOMACH 30 MINUTES PRIOR TO A MEAL famotidine (PEPCID) 40 mg tablet Take 1 tablet by mouth once daily as needed. warfarin (COUMADIN) 5 mg tablet Take 1.5 tablets on Sundays and 2 tablets Thursday through Saturdays rosuvastatin (CRESTOR) 40 mg tablet Take 1 tablet by mouth once daily. potassium chloride (KLOR-CON 10) 10 mEq tablet Take 1 tablet by mouth twice daily. ascorbic acid (VITAMIN C ORAL) Take 2,000 Units by mouth once daily. Cholecalciferol, Vitamin D3, 75 mcg (3,000 unit) tab Take by mouth. aspirin 81 mg cap Take by mouth. hydrocortisone 2.5 % cream Seldom vitamin B complex (B COMPLEX 1 ORAL) magnesium oxide 400 mg magnesium cap Take 1 capsule by mouth once daily. (Patient taking differently: Take 500 mg by mouth two times a day. 500mg daily) SAW PALMETTO ORAL Take 400 mg by mouth twice daily. coenzyme Q10 (COENZYME Q-10) 100 mg cap capsule Take 400 mg by mouth once daily. Cyanocobalamin 2,500 mcg subl Dissolve under the tongue twice daily. calcium, elemental, tab Take 600 mg by mouth twice daily. multivitamin (SOFYA MULTIVITAMIN) tablet Take 1 tablet by mouth once daily. No current facility-administered medications for this visit. ALLERGIES Allergen Reactions Cyclobenzaprine Other: See Comments Double vision Gabapentin Intolerance Keflex [Cephalexin] Rash ACTIVE PROBLEM LIST Acute Gastritis Without Hemorrhage - 04/20/2023 Spinal Stenosis of Lumbar Region - 09/24/2022 Pad (Peripheral Artery Disease) ([facility]) - 08/16/2021 Kidney Insufficiency - 04/04/2021 Posterior Vitreous Detachment of Right Eye - 06/19/2020 Age-Related Nuclear Cataract of Right Eye - 06/19/2020 Balance Problem - 03/12/2020 History of Left-Sided Carotid Endarterectomy - 06/10/2019 Colonic Polyp - 11/29/2018 Usp (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 Hypercoag studies all have been neg as of 05/2014. Bro w/hypercoag W/U previously as well. Gerd (Gastroesophageal Reflux Disease) - 02/17/2014 Htn (Hypertension) - 07/02/2009 Comment: 03/24/2023: Home BP Cuff Validated. Home BP: 114/71 93 Office BP: 100/56 96 Lumbago - 02/23/2009 Impaired Fasting Glucose - 10/11/2008 Comment: Under 110; See labs 10/12 Hereditary and Idiopathic Peripheral Neuropathy - 10/05/2008 Mixed Hyperlipidemia - 10/05/2008 Bph With Obstruction/Lower Urinary Tract Symptoms - 09/04/2008 Insomnia, unspecified - 09/04/2008 Social History Tobacco Use Smoking status: Former Packs/day: 1.00 Years: 20.00 Additional pack years: 0.00 Total pack years: 20.00 Types: Cigarettes Quit date: 04/06/1980 Years since quittin.1 Smokeless tobacco: Never Vaping Use Vaping Use: Never used Substance Use Topics Alcohol use: Not Currently Comment: stopped 07/19/2022 Drug use: Yes Types: Marijuana Review of Systems Respiratory: Negative. Cardiovascular: Negative. Musculoskeletal: Positive for back pain. OBJECTIVE BP 128/72 Pulse 86 Resp 16 Wt 167 lb (75.8kg) Physical Exam Vitals and nursing note reviewed. Constitutional: General: He is awake. He is not in acute distress. Appearance: Normal appearance. He is well-developed and well-groomed. He is not ill-appearing, toxic-appearing or diaphoretic. HENT: Head: Normocephalic. Right Ear: External ear normal. Left Ear: External ear normal. Nose: Nose normal. Eyes: General: Vision grossly intact. Conjunctiva/sclera: Conjunctivae normal. Pupils: Pupils are equal, round, and reactive to light. Neck: Vascular: No JVD. Trachea: Trachea normal. Pulmonary: Effort: Pulmonary effort is normal. No accessory muscle usage, prolonged expiration or respiratory distress. Musculoskeletal: Cervical back: Normal and neck supple. Thoracic back: Normal. Lumbar back: Spasms present. No swelling, edema, deformity, signs of trauma or lacerations. Decreased range of motion. Back: Skin: General: Skin is warm and dry. Capillary Refill: Capillary refill takes less than 2 seconds. Neurological: General: No focal deficit present. Mental Status: He is alert and oriented to person, place, and time. Mental status is at baseline. Psychiatric: Attention and Perception: Attention and perception normal. Mood and Affect: Mood and affect normal. Speech: Speech normal. Behavior: Behavior normal. Behavior is cooperative. Thought Content: Thought content normal. Cognition and Memory: Cognition and memory normal. Judgment: Judgment normal. ASSESSMENT/PLAN: 1. Acute bilateral low back pain without sciatica - ICD9: 724.2, 338.19, ICD10: M54.50 (primary diagnosis) Trial muscle relaxer, can order MRI to rule out any fracture. - MRI LUMBAR SPINE WO IVCON - TIZANIDINE 4 MG TABLET 2. Lumbar pain - ICD9: 724.2, ICD10: M54.50 - MRI LUMBAR SPINE WO IVCON - TIZANIDINE 4 MG TABLET 3. Fall, subsequent encounter - ICD9: V58.89, E888.9, ICD10: W19.XXXD - MRI LUMBAR SPINE WO IVCON - TIZANIDINE 4 MG TABLET 4. 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) - ICD9: 415.19, ICD10: I26.99 On coumadin so limited options for pain treatment. Zeny Lam APRN.DELIVERY CLERK Portions of this note have been entered by ancillary staff. I have reviewed and when necessary edited, so that they are an adequate record of my encounter with this patient Please note that parts of this document were created using voice recognition software and therefore may contain grammatical errors. Patient verbalizes understanding of instructions from today's visit and in agreement with treatment plan. Questions answered. Agrees to call the office if questions, concerns of issues with acute symptoms not improving or if they worsen. See diagnoses and orders for additional plan(s). Allergies and medications were reviewed, list was updated, and refills given if needed. Past medical, surgical, social, and family history reviewed and updated as appropriate. Encouraged proper diet & exercise as well as compliance with taking medications. Age-appropriate health preventative measures were discussed. Return if symptoms worsen or fail to improve, for Keep next scheduled appointment.. Zeny Lam APRN-KAYLA documented in this encounter [facility] 05-15-2023 Miscellaneous Notes Pt notified and verbalized understanding. Tammy Wang MA We have previously prescribed him percocet so yes, we can send in the prescription. I sent this in for him. Please let him know. Pt called and he went to ER due to fall. Pt reports has severe pain and was given Percocet and this helps but he is not going to have enough to last till Thursday apt. Pt reports he is taking this every 6 hours. Pt asking if you are able to maddie 4 or 5 in till his apt on Thursday and then this can be discussed. Please advise pt. Okay to leave a detailed message. Maribel Oden LPN documented in this encounter [facility] 05-14-2023 Miscellaneous Notes Patient calling from [facility] ER wanted to make sure that Zeny gets all of his records from the ER. He said may have to see health support specialist. He did not have any brain bleed from his fall. He said just having a lot of pain and the morphine is not helping him. Noted, agree with ER. FYI: Patient calls to report a fall with severe back pain with movement 10/10 and hit head on floor (on Coumadin). Nurse triage completed and recommends ER Now or PCP triage. With the severe back pain and being on Coumadin recommended ED now. Patient agreeable after much discussion. Recommended to contact the squad if pain is that severe. Patient declined and reports he will find away to the ER. Care advice reviewed. Patient verbalizes understanding. Reason for Disposition Taking Coumadin (warfarin) or other strong blood thinner, or known bleeding disorder (e.g., thrombocytopenia) Answer Assessment - Initial Assessment Questions 1. MECHANISM: Patient reports that in the middle of the night he got up and went to the kitchen where he slipped on some grease and fell to floor landing on back and hitting head. 2. ONSET: Hours ago 3. NEUROLOGIC SYMPTOMS: No loss of consciousness and no neurological symptoms. 4. MENTAL STATUS: Alert and Oriented x 4. 5. LOCATION: Back of head 6. SCALP APPEARANCE: No bleeding 7. SIZE: NA 8. PAIN: Severe pain in lower back left hand side along spine with movement. Rates pain a 4 with no activity. Patient moaning in pain the entire time on phone and reports he was lying in bed. 9. TETANUS: NA 10. OTHER SYMPTOMS: Back Pain Protocols used: Head [id number] documented in this encounter [facility] 05-13-2023 Miscellaneous Notes Patient has been identified by name and date of : No Patient phones for refill(s): Requested Prescriptions Pending Prescriptions Disp Refills lisinopril (ZESTRIL) 20 mg tablet 90 tablet 3 Sig: Take 2 tablets by mouth once daily. Adjust dose as directed based on blood pressure readings Date of last office visit in primary care: 03/24/2023 Date of next office visit in primary care: 07/27/2023 Please advise. Thank you. Celia James. documented in this encounter [facility] 05-07-2023 Miscellaneous Notes See MyChart message, Patient does not want filled at this time. Kari Briones LPN Pt requesting refill on the 2 mg ativan. Reports he checked with [facility] and they do have it. Reports he is almost out of the 1 mg (ordered b/c [facility] didn't have the 2 mg last time). Patient has been identified by name and date of : Yes, Provider Genaro Date 05-06-23 Time 4:56 pm Patient phones for refill(s): Requested Prescriptions Pending Prescriptions Disp Refills LORazepam (ATIVAN) 2 mg tab 90 tablet 1 Sig: Take 1 tablet by mouth at bedtime as needed (insomnia) for up to 180 days. Date of last office visit in primary care: 03/24/2023 Date of next office visit in primary care: 07/27/2023 Please advise. Thank you. Alvin He RN. documented in this encounter [facility] 03-24-2023 Miscellaneous Notes Noted. Patient phoned to report low BP readings. See below. Patient reports he only took 1/2 BP dose last night and none today. Patient felt a little lightheaded at beginning of call but drank water while talking to nurse and BP increased from 74/54 (104) to 91/63 (95). No other symptoms, and patient states he feels fine. Protocol recommends see provider in 4 hours. Scheduled same day appt. Reason for Disposition [1] Systolic BP 90-110 AND [2] taking blood pressure medications AND [3] dizzy, lightheaded or weak Answer Assessment - Initial Assessment Questions 1. BLOOD PRESSURE: Took BP today on home BP monitor - 9:55 am 1st readin/57 (98), 2nd 66/52 (93) 3rd 67/51. Took BP again at 11:05 am 74/54 (104). Reports he is a little lightheaded. Had 4 cups coffee today but has not had any water or other fluids. Patient is drinking water now- 11:20 am. Patient is alert. Patient felt his pulse and reports he feels a regular rhythm. Re-check after drinking water is 91/63 (95) @ 11:55. 2. ONSET: See above 3. HOW: Automatic home BP. 4. HISTORY: No. Has hx of elevated BP 5. MEDICINES: Lisinopril/hctz 20-12.5 1 tab twice daily. Patient reports he only took half dose of his BP medicine last night, and held this morning dose. 6. PULSE RATE: See above 7. OTHER SYMPTOMS: Has been having stomach issues lately- constipation- started taking miralax- which is helping. Is scheduled to have scope done on 04-[address] Rosenberg. No CP. No SOB. States he is a little lightheaded. Reports he is urinating without issues- urinated 5 x's through the night, which, according to patient is normal. 8. : N/A . Protocols used: Blood Pressure - [id number] documented in this encounter [facility] 03-20-2023 Miscellaneous Notes Would just need a standing order for INR placed for [facility] in order for INR to come to you. So does new lab order needs placed in epic or sent to [facility]? PATIENT NOTIFIED OF SAME. States he has the INR drawn here at [facility] lab. Please let him know that yes, it is okay to use miralax to help with the constipation. Also he had requested we be associated with the INR orders for him. Can we verify if he is home testing for this? If yes, what company is he going through for the INR testing? Patient reports he is taking pantoprazole, and it's working fine. Reports he has been having constipation- daily stools are very hard- so much so that it is blocking his toilet- and he has had swine nutritionist visit 3 x's in the past week to unblock it. Reports he drinks 80 oz water daily, plus 4 cups coffee in the morning. Patient reports he researched pantoprazole and learned that it can cause constipated stools. Patient asking pcp is it ok for him to take miralax while taking pantoprazole? Please phone patient with reply. documented in this encounter [facility] 03-18-2023 Miscellaneous Notes Patient notified and verbalized understanding. Anti coag tracker updated. Tammy Wang MA Continue present dose. Recheck in 2 to 3 weeks. Looks like INR has been labile so INR checked every 1 to 2 weeks the past couple months at least, so would check in 2 to 3 weeks to see if remains stable. Okay to work in somewhere around the holidays. Last INR: 2.3 03/18/23 Current dose of coumadin: 10mg Tu - Thurs - Sun. 7.5 mg all other days Last date of dosage change: 02/18/23 changed d/t INR of 1.9 Previous INR (date & result): 03/04/23 2.3 Additional clinical information or narrative: No missed doses, no bleeding issues, no wine, no antibiotics. Corrina Velarde LPN documented in this encounter [facility] 03-10-2023 Miscellaneous Notes Patient calls back and states that [facility] will only do prescription if it is 120 tablets. Patient asking for 120 tablets with one refill to be sent in. See message below: Pt calls to report that [facility] is telling him that lorazepam 2 mg (RX 03/09/23) is backordered and they are not sure when they will get the 2 mg. This has been on backorder since last week. [facility] does have 1 mg tabs and [facility] advised pt to call provider to request order for lorazepam 1 mg 2 tabs at bedtime. Patient has been identified by name and date of : Yes Requested Prescriptions Pending Prescriptions Disp Refills LORazepam (ATIVAN) 1 mg tablet 180 tablet 1 Sig: Take 2 tablets by mouth at bedtime as needed. For insomnia RX INSTRUCTIONS: Patient aware RX will be sent to pharmacy. No need to notify patient. Brandi Lambert LPN documented in this encounter [facility] 03-04-2023 Miscellaneous Notes Pt called and is notified of providers results and instructions. Pt voices understanding. Sent information to Pt through [employer]. He states he isn't trying to lose weight, he's right where he wants to be. He states he uses an scot called GlycoVaxyn to track his Carbs and sugars. Cyndy Whelan RN Goal INR is 2-3 so he is at goal, can plan to repeat INR in 2-3 weeks and continue same dose of coumadin at this time. As for the carbohydrate and sugar question, it depends on the dietary goals. Given his hgba1c was slightly elevated if he aims to reduce his overall carb and sugar intake then his blood sugars will be better. Carb intake influences blood sugar in the body because the carbs we eat are broken down in to sugars in the body. With that in mind trying to consume less than 130 g of carb per day would help control sugars. When advising people on weight loss we will slowly decrease overall carb intake to a point where they are trying to consume 90 g or less per day to help promote weight loss. When restricting carbs to that point it is important to balance the grams of protein to the amount of carbs and increase overall intake of protein as you reduce carbs. Last INR: INR Home CoaguChek 2.3 03/04/2023 Current dose of coumadin is: 10 mg TuFSun, 7.5 mg all other days. Last date of dose change: 02-18-23 Previous INR (date and result): 02-18-23 1.9 Additional Clinical Information or narrative: yes: No unusual bleeding or bruising, no recent AB, no diet changes, no alcohol, no missed doses. Reports last night was when he took the 10 mg, so that may be why INR is up a little today. Patient asking Dede Masterson: What is safe at his age for carbs and sugars? Reports [facility] states the max carbs should be 130 g / day, and sugar should be no more than 36 g / day, and he is way under that. Please advise patient. documented in this encounter [facility] 03-02-2023 Miscellaneous Notes Pt scheduled next lab appt to check A1C on June 02, 2023. Will need lab order attached to that appt. documented in this encounter [facility] 02-27-2023 Miscellaneous Notes Pt returned call to office, notified of provider response. He verbalized understanding. Message sent to pt also d/t pt request. Mohsen Wayne LEFT MESSAGE FOR PATIENT TO CALL OFFICE. Hgba1c did increase slightly from prior value and is considered pre-diabetic. I would recommend he really limit carbs and sugars in diet, stick with lean proteins and vegetables and also get routine physical activity 2-3 times a week, walking at least 10 minutes after a meal can be extremely helpful in keep sugars down. I would recommend a repeat hgba1c in about 3 months and if still above 5.7% we should discuss medication options at that time. Patient calls to request that his PCP review his A1C results and advise on her thoughts. Hemoglobin A1C 4.3 - 5.6 % 5.9 High Patient doesn't feel test results are okay and wants PCP opinion. Antoinette Meadows, RN documented in this encounter [facility] 02-24-2023 Telephone encounter Note 04/20/[address] ROSENBERG PATIENT TO STAY ON COUMADIN [facility] 02-24-2023 Miscellaneous Notes 04/20/[address] ROSENBERG PATIENT TO STAY ON COUMADIN documented in this encounter [facility] 02-23-2023 Miscellaneous Notes Please contact to help with scheduling for appt with general surgery to discuss EGD. Wants to see Dr. Rosenberg. Patient calls and states that provider had discussed patient getting an abdominal scope done. Patient which scope did provider want provider to get done? Patient would like Dr. Rosenberg to do the testing. Patient also asking for a refill on percocet. Please review and advise, Tammie Munguia RN documented in this encounter [facility] 02-18-2023 Miscellaneous Notes PATIENT NOTIFIED OF SAME. Tracker updated. At this time he did not want to change dosing to allow for a serving of green vegetable each week. States usually doesn't eat them that often. Patient had broccoli in the past and INR dropped. If likes broccoli, can increase dose of coumadin so may have some broccoli weekly and adjust dose as well as diet as needed For now, 10mg today then resume usual dose if not wants to increase dose and eat broccoli once weekly. Recheck 2 weeks. Last INR: INR Home CoaguChek 1.9 02/18/2023 Current dose of coumadin is: 10 mg [facility] and 7.5 mg all other days. Last date of dose change: 01/14/2023. Previous INR (date and result): 02/04/2023 was 2.6 Additional Clinical Information or narrative: no missed doses, no bleeding issues, no antibiotics, last greens he ate broccoli on Thursday and last alcohol was Thursday. Can leave patient message with instructions. documented in this encounter [facility] 02-10-2023 Miscellaneous Notes Ordered. Patient asking Zeny, to please order labs for his appt on 07-27-23 for a Wellness Physical. Pended labs patient requested, and asking pcp to order any other labs he may need. Patient already has lab appt scheduled for 2 weeks prior to the 07-26 appt, on 07-13-23. documented in this encounter [facility] 02-09-2023 Miscellaneous Notes Pt called to reiterate that he does not need a new rx for pantoprazole. Brandi Lambert LPN documented in this encounter [facility] 02-09-2023 Miscellaneous Notes Pt reports he has a rx for [facility]oprazole at [facility]. Brandi Lambert LPN documented in this encounter [facility] 02-04-2023 Miscellaneous Notes Noted and ok with me Patient would like to continue coming in every 2 weeks. States that a lot changes in 4 weeks and he does not feel comfortable going that long. Patient is scheduled for 2 weeks out. Records show INR goal is 2-3 and we have stayed in that range so okay to continue current dose and since this has been stable the last several checks it is okay to repeat the INR in 4 weeks this time. Last INR: INR Home Meet 2.6 02/04/2023 Current dose of coumadin is: 10 mg on Tu, Thu, Thu and then 7.5 all other days. Last date of dose change: 01/14/23. Previous INR (date and result): 01/22/23, 2.5 Additional Clinical Information or narrative: yes: Pt denies any diet changes, no alcholol, bleeding, bruising, ATB. No missed doses. Please advise pt back with a detailed message left on his answer machine. Please do not ask to have pt call back. Maribel Oden LPN documented in this encounter [facility] 01-29-2023 Miscellaneous Notes Patient has been identified by name and date of : Yes, Patient phones for refill(s): Requested Prescriptions Pending Prescriptions Disp Refills lisinopril-hydroCHLOROthiazide (ZESTORETIC) 20-12.5 mg per tablet 180 tablet 1 Sig: Take 2 tablets by mouth once daily. famotidine (PEPCID) 40 mg tablet 90 tablet 1 Sig: Take 1 tablet by mouth once daily as needed. Date of last office visit in primary care: 01/23/2023 Date of next office visit in primary care: 07/27/2023 Please advise. Thank you. Rosalia Umanzor LPN. documented in this encounter [facility] 01-29-2023 Miscellaneous Notes Patient has been identified by name and date of : Yes Patient phones for refill(s): Requested Prescriptions Pending Prescriptions Disp Refills warfarin (COUMADIN) 5 mg tablet 240 tablet 1 Sig: Take 1.5 tablets on Sundays and 2 tablets Thursday through Saturdays Date of last office visit in primary care: 01/23/2023 Date of next office visit in primary care: 07/27/2023 Patient comment: Please keep the tablets at 5mg, 240 tablets. Since my INR and dosage fluctuates often. 240 5mg tablets will ensure that I don't run out early. Please advise. Thank you. Rosalia Umanzor LPN. documented in this encounter [facility] 01-23-2023 History of Presen t illness Narrative SUBJECTIVE Alex Brooks is a 77 year old male here today for a check up on his medical problems. Chief Complaint Patient presents with: Establish Care HPI Alex Brooks is a 77 year old male. Has been following for GI issues, gastritis. Slowly continues to improve. Bowel issues resolving. Taking Pepcid and Protonix. On coumadin for history of prior Pes. Most recent INR in range, was 2.5. Repeat in 2 weeks. Issues with back pain, sees Dr. Leal. Takes oxycodone as needed. Limted because of coumadin so cannot use NSAIDs. Taking higher dose statin to help with carotid stenosis. Follows with Dr. Loaiza. His medications were reviewed today and his list is now up to date. Medications Current Outpatient Medications Medication Sig rosuvastatin (CRESTOR) 40 mg tablet Take 1 tablet by mouth once daily. pantoprazole DR (PROTONIX) 40 mg tablet take 1 tablet by mouth once daily ON AN EMPTY STOMACH 30 MINUTES PRIOR TO A MEAL oxyCODONE-acetaminophen (PERCOCET) 5-325 mg tablet Take 1 tablet by mouth every 4 hours as needed for pain for up to 7 days. warfarin (COUMADIN) 5 mg tablet Take 1.5 tablets on Sundays and 2 tablets Thursday through Saturdays (Patient taking differently: Take 1.5 tablets (7.5mg) on , Thu and Sundays and 2 tablets (10 mg) all other days) LORazepam (ATIVAN) 2 mg tab Take 1 tablet by mouth at bedtime as needed (insomnia) for up to 180 days. potassium chloride (KLOR-CON 10) 10 mEq tablet Take 1 tablet by mouth twice daily. famotidine (PEPCID) 40 mg tablet Take 1 tablet by mouth once daily as needed. lisinopril-hydroCHLOROthiazide (PRINZIDE,ZESTORETIC) 20-12.5 mg per tablet Take 2 tablets by mouth once daily. (Patient taking differently: Take 0.5 tablets by mouth two times a day. Dosage varies based on daily BP) ascorbic acid (VITAMIN C ORAL) Take 2,000 Units by mouth once daily. Cholecalciferol, Vitamin D3, 75 mcg (3,000 unit) tab Take by mouth. aspirin 81 mg cap Take by mouth. hydrocortisone 2.5 % cream Seldom vitamin B complex (B COMPLEX 1 ORAL) magnesium oxide 400 mg magnesium cap Take 1 capsule by mouth once daily. (Patient taking differently: Take 500 mg by mouth two times a day. 500mg daily) SAW PALMETTO ORAL Take 400 mg by mouth twice daily. coenzyme Q10 (COENZYME Q-10) 100 mg cap capsule Take 400 mg by mouth once daily. Cyanocobalamin 2,500 mcg subl Dissolve under the tongue twice daily. calcium, elemental, tab Take 600 mg by mouth twice daily. multivitamin (SOFYA MULTIVITAMIN) tablet Take 1 tablet by mouth once daily. No current facility-administered medications for this visit. ALLERGIES Allergen Reactions Cyclobenzaprine Other: See Comments Double vision Gabapentin Intolerance Keflex [Cephalexin] Rash ACTIVE PROBLEM LIST Spinal Stenosis of Lumbar Region - 09/24/2022 Pad (Peripheral Artery Disease) (Hcc) - 08/16/2021 Kidney Insufficiency - 04/04/2021 Posterior Vitreous Detachment of Right Eye - 06/19/2020 Age-Related Nuclear Cataract of Right Eye - 06/19/2020 Balance Problem - 03/12/2020 History of Left-Sided Carotid Endarterectomy - 06/10/2019 Colonic Polyp - 11/29/2018 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 Hypercoag studies all have been neg as of 05/2014. Bro w/hypercoag W/U previously as well. Gerd (Gastroesophageal Reflux Disease) - 02/17/2014 Htn (Hypertension) - 07/02/2009 Lumbago - 02/23/2009 Impaired Fasting Glucose - 10/11/2008 Comment: Under 110; See labs 10/12 Hereditary and Idiopathic Peripheral Neuropathy - 10/05/2008 Mixed Hyperlipidemia - 10/05/2008 Bph With Obstruction/Lower Urinary Tract Symptoms - 09/04/2008 Insomnia, unspecified - 09/04/2008 Social History Tobacco Use Smoking status: Former Packs/day: 1.00 Years: 20.00 Additional pack years: 0.00 Total pack years: 20.00 Types: Cigarettes Quit date: 04/06/1980 Years since quittin.8 Smokeless tobacco: Never Vaping Use Vaping Use: Never used Substance Use Topics Alcohol use: Not Currently Comment: stopped 07/19/2022 Drug use: Yes Types: Marijuana Review of Systems Respiratory: Negative. Cardiovascular: Negative. Gastrointestinal: Negative for abdominal distention, anal bleeding, blood in stool, constipation, diarrhea, nausea and vomiting. OBJECTIVE BP 100/60 Pulse 75 Wt 170 lb (77.1kg) SpO2 97% Physical Exam Vitals and nursing note reviewed. Constitutional: General: He is awake. He is not in acute distress. Appearance: Normal appearance. He is well-developed and well-groomed. He is not ill-appearing, toxic-appearing or diaphoretic. HENT: Head: Normocephalic. Right Ear: External ear normal. Left Ear: External ear normal. Nose: Nose normal. Eyes: General: Vision grossly intact. Conjunctiva/sclera: Conjunctivae normal. Pupils: Pupils are equal, round, and reactive to light. Neck: Vascular: No carotid bruit or JVD. Trachea: Trachea normal. Cardiovascular: Rate and Rhythm: Normal rate and regular rhythm. Pulses: Normal pulses. Heart sounds: Normal heart sounds. No murmur heard. Pulmonary: Effort: Pulmonary effort is normal. No accessory muscle usage, prolonged expiration or respiratory distress. Breath sounds: Normal breath sounds. Musculoskeletal: Cervical back: Neck supple. Skin: General: Skin is warm and dry. Capillary Refill: Capillary refill takes less than 2 seconds. Neurological: General: No focal deficit present. Mental Status: He is alert and oriented to person, place, and time. Mental status is at baseline. Psychiatric: Attention and Perception: Attention and perception normal. Mood and Affect: Mood and affect normal. Speech: Speech normal. Behavior: Behavior normal. Behavior is cooperative. Thought Content: Thought content normal. Cognition and Memory: Cognition and memory normal. Judgment: Judgment normal. ASSESSMENT/PLAN: 1. Mixed hyperlipidemia - ICD9: 272.2, ICD10: E78.2 (primary diagnosis) - Increase rosuvastatin (Crestor) dose ok, previously discussed with vascular - Counseled on healthy diet and regular exercise 2. 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) - ICD9: 415.19, ICD10: I26.99 On coumadin. INR at goal range. 3. correction (current) use of anticoagulants - ICD9: V58.61, ICD10: Z79.01 See #2, INR tracking reviewed. 4. Acute gastritis without hemorrhage, unspecified gastritis type - ICD9: 535.00, ICD10: K29.00 Improving with H2 mark/PPI use 5. History of left-sided carotid endarterectomy - ICD9: V45.89, ICD10: Z98.890 Follows with vascular. 6. Spinal stenosis of lumbar region, unspecified whether neurogenic claudication present - ICD9: 724.02, ICD10: M48.[address] Leal. Percocet as needed, very rare use, signed [facility]. 7. Primary hypertension - ICD9: 401.9, ICD10: I10 - Controlled - Continue current medications - Recommend home blood pressure monitoring, to bring results to next visit - Encouraged sodium restriction, DASH or Mediterranean diet - Recommend regular aerobic exercise I spent a total of 30 minutes on the date of the service which included preparing to see the patient, [id number] patient care, completing clinical documentation, obtaining and/or reviewing separately obtained history, performing a medically appropriate examination, counseling and educating the patient/family/caregiver, ordering medications, tests, or procedures, communicating with other HCPs (not separately reported), independently interpreting results (not separately reported), communicating results to the patient/family/caregiver, and care coordination (not separately reported). Portions of this note have been entered by ancillary staff. I have reviewed and when necessary edited, so that they are an adequate record of my encounter with this patient Please note that parts of this document were created using voice recognition software and therefore may contain grammatical errors. Patient verbalizes understanding of instructions from today's visit and in agreement with treatment plan. Questions answered. Agrees to call the office if questions, concerns of issues with acute symptoms not improving or if they worsen. See diagnoses and orders for additional plan(s). Allergies and medications were reviewed, list was updated, and refills given if needed. Past medical, surgical, social, and family history reviewed and updated as appropriate. Encouraged proper diet & exercise as well as compliance with taking medications. Age-appropriate health preventative measures were discussed. Return in about 6 months (around 07/25/2023) for Wellness physical.. MICHI Navarro documented in this encounter [facility] 01-22-2023 Miscellaneous Notes Patient notified of providers message regarding coumadin instructions and verbalized understanding. Continue with Coumadin dose unchanged and check INR in 2 weeks This should go to his GRAIN SACKER Sara Baxter or environmental health safety manager if she does not do INR dosing. Thank you Arti Baxter APRN.KAYLA Last INR: INR Home CoaguChek 2.5 01/22/2023 Current dose of coumadin is: 10 mg on , Thu, Thu and then the 7.5 mg all other days. Last date of dose change: 01/14/23. Previous INR (date and result): 2.2, Additional Clinical Information or narrative: yes: Pt denies any diet change, no alcohol consumption. No unusual bruising or bleeding. No antibiotics. No missed doses. documented in this encounter [facility] 01-19-2023 Miscellaneous Notes Pt called checking on status on message below. Please notify pt with your response and if medication has been increased and sent to the pharmacy. Maribel Oden LPN Patient calls and is asking if provider can increase the dose of rosuvastatin? Patient states it was recommended by Dr. Loaiza that he would benefit from increasing the dose of the statin medication (see My Chart Message from today 01/16/2023). If agreeable please send new dose to [facility]. Please review and advise, Tammie Munguia RN documented in this encounter [facility] 01-19-2023 History of Presen t illness Narrative [facility] Date: January 19, 2023 - 12:55 PM Chief Complaint: back pain SUBJECTIVE: Mr. Brooks presents to the [facility] for a follow up appointment regarding chronic lower back pain. He states that since the last visit symptoms have been persistent overall improved since the radiofrequency ablation.. The pain is located in the bilateral lumbar region and does not radiate. // The pain is described as throbbing and tingling and is rated as 5 on a scale of 0-10. The patient Reports none. Symptoms interfere with walking. The pain is exacerbated by lying down. The pain is mitigated by walking. He is currently receiving medications through the [facility]. He is not having difficulty with his PMC medications. The medications are partially effective. REVIEW OF SYSTEMS: Constitutional: (-) Fever (-) Night Sweats (-) Weight Gain (-) Weight Loss (-) Fatigue Cardiovascular: (-) Chest Pain (-) Palpitations (-) Lightheadedness (-) Swelling of Ankles (-) Hx Heart Surgery Respiratory: (+) Shortness of Breath (-) Cough (-) Wheezing (-) Snoring Gastrointestinal: (-) Incontinence (-) Abdominal Pain (+) Diarrhea (-) Constipation (+) Nausea/Vomiting (-) Heart Burn Endocrine: (-) Thyroid Disorder (-) Diabetes Hematologic: (+) Prolonged Bleeding (+) Easy Bruising Genitourinary: (-) Incontinence (+) Frequency (+) Urinary Urgency Skin: (-) Rashes (-) Itching (-) Other Lesions Neurologic: (-) Headache (+) Double Vision (-) Confusion (-) Paralysis Psychiatric: (-) Depression (-) Anxiety (-) Delusions (-) Hallucinations (+) Personal History of Alcohol or Substance Abuse (-) Family History of Alcohol or Substance Abuse 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 Carotid stenosis, left 02/21/2019 s/p CEA Closed nondisplaced fracture of distal phalanx of right great toe 01/16/2021 Colonic polyp 11/29/2018 DDD (degenerative disc disease), lumbar 03/08/2014 Elevated prostate specific antigen (PSA) 09/15/2016 Esophageal reflux Fall at home 01/05/2018 Right Rib Fracture Hypertension Hypertrophy of prostate with urinary obstruction and other lower urinary tract symptoms (LUTS) 09/04/2008 With mild night-time symptoms, exam ok as of 09/2008 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 Related to sugar? -- see fasting glucose 2008; Impaired fasting glucose 10/11/2008 Under 110; See labs 10/12 INSOMNIA NOS 09/04/2008 Doing well with as-needed benzo at night Left bundle branch block 05/28/2010 Lumbago 02/23/2009 Lumbosacral spondylosis without myelopathy 08/07/2011 Lung disease [place] Fever Macular hole left eye Macular hole of left eye 06/19/2020 Mixed hyperlipidemia 10/05/2008 Neuropathy Nuclear sclerosis of right eye PE (pulmonary embolism) 09/04/2011 Peripheral vascular disease (HCC) Perirectal abscess 12/12/2008 Postconcussion syndrome 11/11/2011 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) 05/08/2014 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 REMV CATARACT EXTRACAP,INSERT LENS Left TRANSCATH RETRIEVAL,PERCUT 09/20/2012 IVC filter retrieval TRIESENCE INTRAVITREAL INJECTION OS (LEFT EYE) 10/25/2013 VENA CAVA FILTER 09/26/2011 later removed ALLERGIES Allergen Reactions Cyclobenzaprine Other: See Comments Double vision Gabapentin Intolerance Keflex [Cephalexin] Rash Current Outpatient Medications Medication Sig ascorbic acid (VITAMIN C ORAL) Take 2,000 Units by mouth once daily. aspirin 81 mg cap Take by mouth. calcium, elemental, tab Take 600 mg by mouth twice daily. Cholecalciferol, Vitamin D3, 75 mcg (3,000 unit) tab Take by mouth. coenzyme Q10 (COENZYME Q-10) 100 mg cap capsule Take 400 mg by mouth once daily. Cyanocobalamin 2,500 mcg subl Dissolve under the tongue twice daily. famotidine (PEPCID) 40 mg tablet Take 1 tablet by mouth once daily as needed. hydrocortisone 2.5 % cream Seldom lisinopril-hydroCHLOROthiazide (PRINZIDE,ZESTORETIC) 20-12.5 mg per tablet Take 2 tablets by mouth once daily. (Patient taking differently: Take 0.5 tablets by mouth twice daily. Dosage varies based on daily BP) LORazepam (ATIVAN) 2 mg tab Take 1 tablet by mouth at bedtime as needed (insomnia) for up to 180 days. magnesium oxide 400 mg magnesium cap Take 1 capsule by mouth once daily. (Patient taking differently: Take 500 mg by mouth twice daily. 500mg daily) multivitamin (SOFYA MULTIVITAMIN) tablet Take 1 tablet by mouth once daily. oxyCODONE-acetaminophen (PERCOCET) 5-325 mg tablet Take 1 tablet by mouth every 4 hours as needed for pain for up to [address] (PROTONIX) 40 mg tablet Take 1 tablet by mouth daily before breakfast. Take on empty stomach, 1/2 hr before meal. potassium chloride (KLOR-CON 10) 10 mEq tablet Take 1 tablet by mouth twice daily. rosuvastatin (CRESTOR) 20 mg tablet Take 2 tablets by mouth once daily. SAW PALMETTO ORAL Take 400 mg by mouth twice daily. vitamin B complex (B COMPLEX 1 ORAL) warfarin (COUMADIN) 5 mg tablet Take 1.5 tablets on Sundays and 2 tablets Thursday through Saturdays No current facility-administered medications for this visit. I have reviewed the nurses notes and I am aware of the family/social history. Since the last evaluation the medical history has not changed. PDMP website checked and validated. All prescriptions have been APPROPRIATELY filled. No suspicious activity was identified. 01/19/2023 by Mckinley Leal MD Narcotic Agreement reviewed and signed?: N/A on January 19, 2023 Urine Panel: No results found for: UQCANN, UQBNZL, THS1CKJ, UQAMPH, UQMAMP, UQBUPRE, UQNORBUP, UQMTHD, UQEDDP, UQTRAM, UQDTRM, UQFNTL, UQNFTL, UQCODE, UQMORP, UQDCDN, UQHCOD, UQOXYC, UQHMOR, UQOXYM, UQCREA, UQPH, UQSPGR, UQOXID, UQSPQ The pain panel was N/A PHYSICAL EXAMINATION: Performed in conjunction with observation. The patient was alert and oriented x3. The patient was in no acute distress. Lungs: Clear, negative for dyspnea or distress. CVR: Regular Rate. Negative for SOB or peripheral edema. Neck: Supple. The range of motion was intact. Back: Range of motion of the trunk was intact. SLR: negative Facet Loading: negative with axial loading and extension. Extremities: no reported edema or erythema. Motor: negative focal deficits Gait: WNL ASSESSMENT: Spinal stenosis of lumbar region, unspecified whether neurogenic claudication present (primary encounter diagnosis) Lumbar spondylosis PLAN: Prior available imaging studies were reviewed. Findings were discussed. Injection history was reviewed. Medication use and compliance were reviewed. 1. The patient continues to have intermittent back and radicular pain symptoms. We discussed multicomponent pain source. He has significant lumbar canal stenosis at L4-5 which results in radicular pain symptoms. He also has lumbar facet arthropathy and myofascial pain component. He has taken intermittent pain medications and has taken them appropriately. Anticipate that he is still going to have intermittent pain associated with spinal stenosis and may continue with intermittent oxycodone use. 2. Interventional procedure options discussed. None at this time. 3. No new medication was prescribed from our office today. 4. Encouraged regular home exercise program. 5) F/U in PRN basis The treatment plan was discussed with the patient during the office visit and they verbalized an understanding of it. I have discussed and confirmed the above treatment plan with the patient and I have reviewed the nurses notes and I am aware of the family/social history. I have confirmed ROS findings. Mckinley Leal MD cc: Dr. Franc Hills MD cc: No referring provider defined for this encounter. Phone: N/A Fax: Results of consultation to be transmitted via electronic medical record for those providers who practice within [facility] or with access to [email or web address] via MD Connect, or via letter. 1. This document has been created with the use of voice recognition technology. It may contain inaccuracies: (e.g. misspellings, inaccurate syntax or word sense) that have escaped review. 2. The nurse practitioner, nursing staff and medical assistants are a major part of YOUR TREATMENT TEAM and will be handling your phone calls and inquiries, if any. Unless explicitly told otherwise at the time of your office visit, your study results and ensuing treatment plans will be discussed during your follow-up appointment. If you do not have a follow-up appointment and wish to discuss any issues, please set up an appointment. 3. It is my practice to not fill disability or any other insurance-related forms/documentation. All of the office notes, study results, and other pertinent documentation generated as part of your evaluation will be available to you and to your Primary Care Physician (PCP). Use of this material to complete such forms will be at the discretion of your PCP/referring physician. documented in this encounter [facility] 01-14-2023 Miscellaneous Notes Pt called and is notified of providers results and instructions. Pt voices understanding. Cyndy Whelan, RN After reviewing recent sequence of changes, I agree with recommended dose and recheck by Zeny Lam. Patient does not agree with below recommendation asking for Dr. Hills to reiew Rich is wanting to do 10mg Coumadin all days but 7.5mg only on Thursday, feels that it is due to eating broccoli, typically runs 2.2 Kari Briones LPN Okay to continue current coumadin dose as he took it which would be 10 mg on , Thu, Thu and then the 7.5 mg all other days. Repeat INR in 1 week to ensure stable and still in goal range 2-3 given recent fluctuations in INR. Blood counts are stable so no signs of GI issues being infection related. Liver function normal. Blood sugar up but in acceptable range for middle of the day/not fasting. He should make sure he is getting enough fluids since kidney number (BUN) is up a touch. Pt reports he also took 10 mg Thu01/13/23 as he didn't get his INR done until Thursday the day after he was supposed to. Pt also asking if provider could go over CBC and CMP results. Please call and advise. Last INR: INR Home CoaguChek 2.2 01/14/2023 Current dose of coumadin is: 10 mg Thursday and Thursday 7.5 all other days. Last date of dose change: 01/09/23. Previous INR (date and result): 01/09/23 1.5 Additional Clinical Information or narrative: yes: Pt reports had broccoli on Thursday only. Bruising on inside of right elbow x 2 1/2 weeks. Denies: bleeding, change in diet except for having broccoli one 1 time, no change in appetite, no ATB. Please get back to pt with a detailed message on his answer machine. Pt does not want to have to call back. Maribel Oden LPN documented in this encounter [facility] 01-09-2023 Miscellaneous Notes Patient notified of results and provider's instructions. Patient verbalizes understanding. Kristina Youssef LPN Take 10 mg today then 7.5 mg daily except 10 mg on Thursday. Check INR next Thursday or Thursday Would recommend eating just as broccoli per week as used to prior to having recent surgery/procedure rather than keep pushing broccoli more than before . Last INR: INR Home CoaguChek 1.5 01/09/2023 Current dose of coumadin is: 7.5 Wed, 10 mg all other days. Coumadin on hold 10-, and 01-07 for INR 5-3. Patient also has been eating broccoli. Last date of dose change: 01-07-23. Previous INR (date and result): 01-07-23 5.3, 12-31-22- 3.2 Additional Clinical Information or narrative: yes: Patient reports he had an ablation 2-3 weeks ago. Reports he developed a bruise a size of a quarter with blood draw on01-07 and it's still there. Reports no recent AB's. Started eating brocchili for the INR of 5.3- for the past 2 days, as well as held coumadin for the past 2 days. documented in this encounter [facility] 01-07-2023 Miscellaneous Notes Patient returned call and said he had forgotten that he had ablation done Thursday before last per Dr Leal. He thinks that may have affected his INR. PATIENT NOTIFIED OF SAME. Suspect GI issues affecting INR, especially if affecting how he is eating so not getting enough Vitamin K daily. See if able to add some of foods from his usual diet that have Vitamin K (green leafy vegetables, spinach, etc) in amounts he was eating on a weekly basis before bowel issues started. Miralax daily to treat constipation issues. Follow up in office if ongoing bowel issues. Hold coumadin 2 days then INR Thursday Patient calls back with information he finds to be pertinent: Patient calls back to let provider know about docusate sodium 500 mg is being taken daily. He reports that after OV on 12/29/2022, for 4 days of vomiting and diarrhea he started having constipation which was the cause for starting docusate. Patient has changed diet dramatically. Following, BRAT diet, very light, lots of water, j luis louie, diet 7 up, applesauce, protein toast, and some chicken. Patient also wanted to let provider know that his bruising from ast weeks injection site remains the size of quarter dark purple in color but fading. He reports that usually bruises are gone within a couple of day. Antoinette Meadows RN Last INR: INR Home CoaguChek 5.3 01/07/2023 Current dose of coumadin is: 7.5 mg on Wednesdays; 10 mg all other days. Last date of dose change: 12/31/2022. Previous INR (date and result): 3.2 12/31/2022 Additional Clinical Information or narrative: Patient has not had any alcohol since 12/19/2022. Patient was having stomach issues of diarrhea and vomiting. Patient is now constipated. Patient had had bowel movements once a day but bowel movements are hard as a rock. Patient has been taking dulcolax sodium 500 mgs for constipation issues. Asking what else he can take? documented in this encounter [facility] 12-30-2022 Telephone encounter Note I'm okay with seeing him, okay to put him on my schedule [facility] 12-30-2022 Miscellaneous Notes I'm okay with seeing him, okay to put him on my schedule Pt called to scheduled with Zeny in April to [facility]. States he saw her yesterday and asked if he could have her as a primary care. States she said yes. Please advise if this is okay. Pt is concerned for privacy and does not what Dr. Hills to know of his decision. documented in this encounter [facility] 12-30-2022 Telephone encounter Note Pt called to scheduled with Zeny in April to [facility]. States he saw her yesterday and asked if he could have her as a primary care. States she said yes. Please advise if this is okay. Pt is concerned for privacy and does not what Dr. Hills to know of his decision. [facility] Work Phone: 12-29-2022 Miscellaneous Notes Patient calling with request for health information: patient requesting health information about Moderna Vaccine, reviewed information from CDC , and verbalized understanding of information provided. Patient denies any new or worsening symptoms of which a provider is not aware: Yes. Source: https://www.cdc.gov/vaccines/cov id-19/sbcy-tw-impigcm/moderna/re actogenicity.html If you have any questions, you can call Nurse chief construction inspector back at anytime OR speak to your provider's office when they open in the morning. documented in this encounter [facility] 12-29-2022 History of Presen t illness Narrative SUBJECTIVE Alex Brooks is a 77 year old male here today for acute concern. Chief Complaint Patient presents with: poor appetite: since 12/22/2022. Started with diarrhea, stomach pain and nausea and vomiting for 3 days. with dark brown emesis but no coffee grounds noted Then constipation started with no appetite continues. Did take a dulcolax that caused diarrhea but still no appetite HPI Alex Brooks is a 77 year old male. He presents today for concerns of issues starting last Thursday with stomach upset, vomited, diarrhea. Dark brown vomiting x2. No cough ground appearance. Following this he then noticed increased burping, constipation. Took ducolax, helped, took x5 doses. Some increased gas still. Appetite is decreased. Lost about 6-8 pounds. Started before the recent ablation. Ablation last Thursday with Dr. Leal. No blood noted in stool. Some reflux/heartburn and still flatulence. Improving. Eating a bland diet. The weekend prior to this he ate Cymro food with a lot of hot sauce. Has gallbladder, not much abdominal pain. His medications were reviewed today and his list is now up to date. Medications Current Outpatient Medications Medication Sig oxyCODONE-acetaminophen (PERCOCET) 5-325 mg tablet Take 1 tablet by mouth every 4 hours as needed for pain for up to 7 days. warfarin (COUMADIN) 5 mg tablet Take 1.5 tablets on Sundays and 2 tablets Thursday through Saturdays LORazepam (ATIVAN) 2 mg tab Take 1 tablet by mouth at bedtime as needed (insomnia) for up to 180 days. rosuvastatin (CRESTOR) 20 mg tablet Take 1 tablet by mouth once daily. potassium chloride (KLOR-CON 10) 10 mEq tablet Take 1 tablet by mouth twice daily. famotidine (PEPCID) 40 mg tablet Take 1 tablet by mouth once daily as needed. lisinopril-hydroCHLOROthiazide (PRINZIDE,ZESTORETIC) 20-12.5 mg per tablet Take 2 tablets by mouth once daily. (Patient taking differently: Take 0.5 tablets by mouth twice daily. Dosage varies based on daily BP) ascorbic acid (VITAMIN C ORAL) Take 2,000 Units by mouth once daily. Cholecalciferol, Vitamin D3, 75 mcg (3,000 unit) tab Take by mouth. aspirin 81 mg cap Take by mouth. hydrocortisone 2.5 % cream Seldom vitamin B complex (B COMPLEX 1 ORAL) magnesium oxide 400 mg magnesium cap Take 1 capsule by mouth once daily. (Patient taking differently: Take 500 mg by mouth twice daily. 500mg daily) SAW PALMETTO ORAL Take 400 mg by mouth twice daily. coenzyme Q10 (COENZYME Q-10) 100 mg cap capsule Take 400 mg by mouth once daily. Cyanocobalamin 2,500 mcg subl Dissolve under the tongue twice daily. calcium, elemental, tab Take 600 mg by mouth twice daily. multivitamin (SOFYA MULTIVITAMIN) tablet Take 1 tablet by mouth once daily. No current facility-administered medications for this visit. ALLERGIES Allergen Reactions Cyclobenzaprine Other: See Comments Double vision Gabapentin Intolerance Keflex [Cephalexin] Rash ACTIVE PROBLEM LIST Spinal Stenosis of Lumbar Region - 09/24/2022 Pad (Peripheral Artery Disease) (Hcc) - 08/16/2021 Kidney Insufficiency - 04/04/2021 Posterior Vitreous Detachment of Right Eye - 06/19/2020 Age-Related Nuclear Cataract of Right Eye - 06/19/2020 Balance Problem - 03/12/2020 History of Left-Sided Carotid Endarterectomy - 06/10/2019 Colonic Polyp - 11/29/2018 Usp (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 Hypercoag studies all have been neg as of 05/2014. Bro w/hypercoag W/U previously as well. Gerd (Gastroesophageal Reflux Disease) - 02/17/2014 Gait Abnormality - 04/28/2011 Htn (Hypertension) - 07/02/2009 Lumbago - 02/23/2009 Impaired Fasting Glucose - 10/11/2008 Comment: Under 110; See labs 10/12 Hereditary and Idiopathic Peripheral Neuropathy - 10/05/2008 Mixed Hyperlipidemia - 10/05/2008 Bph With Obstruction/Lower Urinary Tract Symptoms - 09/04/2008 Insomnia, unspecified - 09/04/2008 Social History Tobacco Use Smoking status: Former Packs/day: 1.00 Years: 20.00 Additional pack years: 0.00 Total pack years: 20.00 Types: Cigarettes Quit date: 04/06/1980 Years since quittin.7 Smokeless tobacco: Never Vaping Use Vaping Use: Never used Substance Use Topics Alcohol use: Not Currently Comment: stopped 07/19/2022 Drug use: Yes Types: Marijuana Review of Systems Gastrointestinal: Positive for constipation, diarrhea and vomiting. Negative for abdominal distention, abdominal pain, anal bleeding, blood in stool and rectal pain. OBJECTIVE BP 98/60 Pulse 93 Wt 170 lb (77.1kg) SpO2 96% Physical Exam Vitals and nursing note reviewed. Constitutional: General: He is awake. He is not in acute distress. Appearance: Normal appearance. He is well-developed and well-groomed. He is not ill-appearing, toxic-appearing or diaphoretic. HENT: Head: Normocephalic. Right Ear: External ear normal. Left Ear: External ear normal. Nose: Nose normal. Eyes: General: Vision grossly intact. Conjunctiva/sclera: Conjunctivae normal. Pupils: Pupils are equal, round, and reactive to light. Neck: Vascular: No JVD. Trachea: Trachea normal. Cardiovascular: Rate and Rhythm: Normal rate and regular rhythm. Pulses: Normal pulses. Heart sounds: Normal heart sounds. No murmur heard. Pulmonary: Effort: Pulmonary effort is normal. No accessory muscle usage, prolonged expiration or respiratory distress. Breath sounds: Normal breath sounds. Abdominal: General: Bowel sounds are increased. Musculoskeletal: Cervical back: Neck supple. Skin: General: Skin is warm and dry. Capillary Refill: Capillary refill takes less than 2 seconds. Neurological: General: No focal deficit present. Mental Status: He is alert and oriented to person, place, and time. Mental status is at baseline. Psychiatric: Attention and Perception: Attention and perception normal. Mood and Affect: Mood and affect normal. Speech: Speech normal. Behavior: Behavior normal. Behavior is cooperative. Thought Content: Thought content normal. Cognition and Memory: Cognition and memory normal. Judgment: Judgment normal. ASSESSMENT/PLAN: 1. Gastroesophageal reflux disease without esophagitis - ICD9: 530.81, ICD10: K21.9 (primary diagnosis) - Still some residual GERD, sounds like irritation related to increased intake of spicy foods. Discussed bland diet, Pepcid twice daily for the next 2 weeks. Advance diet as tolerated. Notify us if symptoms persist or worsen. 2. Acute gastritis without hemorrhage, unspecified gastritis type - ICD9: 535.00, ICD10: K29.00 See #1 I spent a total of 32 minutes on the date of the service which included preparing to see the patient, [id number] patient care, completing clinical documentation, obtaining and/or reviewing separately obtained history, performing a medically appropriate examination, counseling and educating the patient/family/caregiver, ordering medications, tests, or procedures, independently interpreting results (not separately reported), communicating results to the patient/family/caregiver, and care coordination (not separately reported). Portions of this note have been entered by ancillary staff. I have reviewed and when necessary edited, so that they are an adequate record of my encounter with this patient Please note that parts of this document were created using voice recognition software and therefore may contain grammatical errors. Patient verbalizes understanding of instructions from today's visit and in agreement with treatment plan. Questions answered. Agrees to call the office if questions, concerns of issues with acute symptoms not improving or if they worsen. See diagnoses and orders for additional plan(s). Allergies and medications were reviewed, list was updated, and refills given if needed. Past medical, surgical, social, and family history reviewed and updated as appropriate. Encouraged proper diet & exercise as well as compliance with taking medications. Age-appropriate health preventative measures were discussed.. Return if symptoms worsen or fail to improve, for Keep next scheduled appointment.. Zeny Lam APRN-KAYLA documented in this encounter [facility] 12-25-2022 Miscellaneous Notes Patient reports he vomited 3 days ago, one time. Reports he had diarrhea 2-3 days ago, and now only having a lot of gas. Reports he ate Cymro on the and , but doesn't think that has anything to do with it. Reports he is now eating a bland diet and getting plenty of clear liquids, and thinks he's on the mend. States he doesn't need an appt right now, but if condition worsens he plans to call back to schedule appt with Dede Masterson. documented in this encounter [facility] 12-17-2022 Miscellaneous Notes Noted. Mani Edwards MD Disregard question below regarding the covid vaccine, question was already answered by Dr Leal. Corrina Velarde LPN Patient calls to ask if Dr. Edwards could review his [facility] request since it has to do with Coumadin and INR and Dr. Hills is out. MC message: I go in for Ablation with Dr. Leal on December 23. I stop Cumadin on the and low does aspirin on the . What daily doseages of Cumadin do you recommend after the ablation and can I take that amount directly after the procedure is completed? I mean within an hour or two. Thank you. Rich Patient also asking if provider would comment on New Covid Vaccine MC message also sent to Dr. Leal: The CDC AND FDA announced this morning that a new Covid vaccine will be available very soon. I've had all of them. My question is, can I get the shot soon before or shortly after the ablation? Rich Meadows RN documented in this encounter [facility] 12-17-2022 Miscellaneous Notes See TE 12/17/2022. Antoinette Meadows RN documented in this encounter [facility] 12-10-2022 Nurse Note PROMIS-10 Global Health In general, would you say your health is:: Good In general, would you say your quality of life is:: Good In general, how would you rate your physical health?: Good In general, how would you rate your mental health, including your mood and your ability to think?: Very good In general, how would you rate your satisfaction with your social activities and relationships?: Very good In general, please rate how well you carry out your usual social activities and roles. (This includes activities at home, at work and in your community, and responsibilities as a parent, child, spouse, employee, friend, etc.): Good To what extent are you able to carry out your everyday physical activities such as walking, climbing stairs, carrying groceries, or moving a chair?: (!) Moderately In the past 7 days, how often have you been bothered by emotional problems such as feeling anxious, depressed or irritable?: Never In the past 7 days, how would you rate your fatigue on average?: Mild In the past 7 days, how would you rate your pain on average?: (!) 8 PROMIS-10 physical raw score: 12 Global Physical Health Raw Score: 12 PROMIS-10 physical T score: 39.8 Global Physical Health T Score: 39.8 PROMIS-10 Physical Health Percentile: 15 Global Physical Health Percentile: 15 PROMIS-10 mental raw score: 16 Global Mental Health Raw Score: 16 PROMIS-10 mental T score: 53.3 Global Mental Health T Score: 53.3 PROMIS-10 Mental Health Percentile: 63 Global Mental Health Percentile: 63 PROMIS-10 pain score: 2 0-10 Standard Pain Scale: 2 (12/10/22 1107 : Betzaida Kiser Ma) documented in this encounter [facility] 12-10-2022 History of Presen t illness Narrative [facility] Date: December 10, 2022 - 9:47 AM Chief Complaint: Back pain SUBJECTIVE: Mr. Brooks presents to the [facility] for a follow up appointment regarding chronic lower back pain. He states that since the last visit symptoms have been persistent. The pain is located in the bilateral lumbar region and does not radiate. // The pain is described as aching, radiating, and sharp and is rated as 8 on a scale of 0-10. The patient Denies leg pain. Symptoms interfere with physical activity and walking. The pain is exacerbated by lying down and walking. The pain is mitigated by unable to pinpoint positions/factors that are mitigating. REVIEW OF SYSTEMS: Constitutional: (-) Fever (-) Night Sweats (-) Weight Gain (-) Weight Loss (-) Fatigue Cardiovascular: (-) Chest Pain (-) Palpitations (-) Lightheadedness (-) Swelling of Ankles (-) Hx Heart Surgery Respiratory: (-) Shortness of Breath (-) Cough (-) Wheezing (-) Snoring Gastrointestinal: (-) Incontinence (-) Abdominal Pain (-) Diarrhea (-) Constipation (-) Nausea/Vomiting (-) Heart Burn Endocrine: (-) Thyroid Disorder (-) Diabetes Hematologic: (+) Prolonged Bleeding (+) Easy Bruising Genitourinary: (-) Incontinence (-) Frequency (-) Urinary Urgency Skin: (-) Rashes (-) Itching (-) Other Lesions Neurologic: (-) Headache (-) Double Vision (-) Confusion (-) Paralysis Psychiatric: (-) Depression (-) Anxiety (-) Delusions (-) Hallucinations (-) Personal History of Alcohol or Substance Abuse (-) Family History of Alcohol or Substance Abuse 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 Carotid stenosis, left 02/21/2019 s/p CEA Closed nondisplaced fracture of distal phalanx of right great toe 01/16/2021 Colonic polyp 11/29/2018 DDD (degenerative disc disease), lumbar 03/08/2014 Elevated prostate specific antigen (PSA) 09/15/2016 Esophageal reflux Fall at home 01/05/2018 Right Rib Fracture Hypertension Hypertrophy of prostate with urinary obstruction and other lower urinary tract symptoms (LUTS) 09/04/2008 With mild night-time symptoms, exam ok as of 09/2008 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 Related to sugar? -- see fasting glucose 2008; Impaired fasting glucose 10/11/2008 Under 110; See labs 10/12 INSOMNIA NOS 09/04/2008 Doing well with as-needed benzo at night Left bundle branch block 05/28/2010 Lumbago 02/23/2009 Lumbosacral spondylosis without myelopathy 08/07/2011 Lung disease [place] Fever Macular hole left eye Macular hole of left eye 06/19/2020 Mixed hyperlipidemia 10/05/2008 Neuropathy Nuclear sclerosis of right eye PE (pulmonary embolism) 09/04/2011 Peripheral vascular disease (HCC) Perirectal abscess 12/12/2008 Postconcussion syndrome 11/11/2011 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) 05/08/2014 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 REMV CATARACT EXTRACAP,INSERT LENS Left TRANSCATH RETRIEVAL,PERCUT 09/20/2012 IVC filter retrieval TRIESENCE INTRAVITREAL INJECTION OS (LEFT EYE) 10/25/2013 VENA CAVA FILTER 09/26/2011 later removed ALLERGIES Allergen Reactions Cyclobenzaprine Other: See Comments Double vision Gabapentin Intolerance Keflex [Cephalexin] Rash Current Outpatient Medications Medication Sig oxyCODONE-acetaminophen (PERCOCET) 5-325 mg tablet Take 1 tablet by mouth every 4 hours as needed for pain for up to 7 days. warfarin (COUMADIN) 5 mg tablet Take 1.5 tablets on Sundays and 2 tablets Thursday through Saturdays LORazepam (ATIVAN) 2 mg tab Take 1 tablet by mouth at bedtime as needed (insomnia) for up to 180 days. rosuvastatin (CRESTOR) 20 mg tablet Take 1 tablet by mouth once daily. potassium chloride (KLOR-CON 10) 10 mEq tablet Take 1 tablet by mouth twice daily. famotidine (PEPCID) 40 mg tablet Take 1 tablet by mouth once daily as needed. lisinopril-hydroCHLOROthiazide (PRINZIDE,ZESTORETIC) 20-12.5 mg per tablet Take 2 tablets by mouth once daily. (Patient taking differently: Take 0.5 tablets by mouth twice daily. Dosage varies based on daily BP) ascorbic acid (VITAMIN C ORAL) Take 2,000 Units by mouth once daily. Cholecalciferol, Vitamin D3, 75 mcg (3,000 unit) tab Take by mouth. aspirin 81 mg cap Take by mouth. hydrocortisone 2.5 % cream Seldom vitamin B complex (B COMPLEX 1 ORAL) magnesium oxide 400 mg magnesium cap Take 1 capsule by mouth once daily. (Patient taking differently: Take 500 mg by mouth twice daily. 500mg daily) SAW PALMETTO ORAL Take 400 mg by mouth twice daily. coenzyme Q10 (COENZYME Q-10) 100 mg cap capsule Take 400 mg by mouth once daily. Cyanocobalamin 2,500 mcg subl Dissolve under the tongue twice daily. calcium, elemental, tab Take 600 mg by mouth twice daily. multivitamin (SOFYA MULTIVITAMIN) tablet Take 1 tablet by mouth once daily. No current facility-administered medications for this visit. I have reviewed the nurses notes and I am aware of the family/social history. Since the last evaluation the medical history has not changed. PDMP website checked and validated. All prescriptions have been APPROPRIATELY filled. No suspicious activity was identified. 12/10/2022 by Mckinley Leal MD Narcotic Agreement reviewed and signed?: N/A on December 10, 2022 Urine Panel: No results found for: UQCANN, UQBNZL, NRD9GLV, UQAMPH, UQMAMP, UQBUPRE, UQNORBUP, UQMTHD, UQEDDP, UQTRAM, UQDTRM, UQFNTL, UQNFTL, UQCODE, UQMORP, UQDCDN, UQHCOD, UQOXYC, UQHMOR, UQOXYM, UQCREA, UQPH, UQSPGR, UQOXID, UQSPQ The pain panel was N/A PHYSICAL EXAMINATION: Performed in conjunction with observation. The patient was alert and oriented x3. The patient was in no acute distress. Lungs: Clear, negative for dyspnea or distress. CVR: Regular Rate. Negative for SOB or peripheral edema. Neck: Supple. The range of motion was intact. Back: Range of motion of the trunk was limited. SLR: negative Facet Loading: positive with axial loading and extension. SI joint: negative PSIS tenderness. Extremities: no reported edema or erythema. Motor: Negative focal deficits Gait: Slow to stand with flexed posture otherwise within normal limits ASSESSMENT: Chronic low back pain without sciatica, unspecified back pain laterality Hereditary and idiopathic peripheral neuropathy Spinal stenosis of lumbar region, unspecified whether neurogenic claudication present PLAN: Prior available imaging studies were reviewed. Findings were discussed. Injection history was reviewed. Medication use and compliance were reviewed. 1. He is s/p lumbar facet RFA with significant improvement. His back pain is now recurrent. Recommend repeating RFA. 2. Interventional procedure options discussed. RFA of bilateral L4-5 and L5-S1 lumbar facet medial branch nerves. Medical Indications: Facet joint interventions are considered medically reasonable and necessary for the diagnosis and treatment of chronic pain in this patient because they meet ALL of the following criteria: (all MUST be present) Moderate to severe chronic neck or low back pain, predominantly axial, that causes functional deficit measured on a pain OR a disability scale Pain has been present for > 3 months with documented failure to respond to noninvasive conservative treatments (as tolerated) Absence of untreated radiculopathy or neurogenic claudication (except if caused by synovial cyst) There is no non-facet pathology by clinical assessment or radiology study that could explain the source of pain such as fracture, tumor, infection, or deformity Disability Assessment: A disability scale was completed by the patient at baseline. Scale used: PROMIS Profile Date completed: 12/10/2022 Scanned into [email or web address]: Yes See nursing note. Intervention: This is a facet joint RFA (denervation) and (all must be present): The patient had 2 medically reasonable and necessary diagnostics MBBs, each one providing a consistent minimum of 80% sustainable relief of primary pain (with the duration consistent with the agent used). There have been no more than 2 radiofrequency sessions per rolling 12 months per spinal region. Repeat thermal facet joint RFA at the same anatomic site is considered medically reasonable and necessary provided the patient had a minimum and consistent 50% improvement in pain for at least 6 months or at least 50% improvement in the ability to perform previously painful movements and ADLs as compared to baseline using the same scale. 3. No new medication was prescribed. 4. Encouraged regular home exercise program. 5) F/U in 2 months The treatment plan was discussed with the patient during the office visit and they verbalized an understanding of it. I have discussed and confirmed the above treatment plan with the patient and I have reviewed the nurses notes and I am aware of the family/social history. I have confirmed ROS findings. Mckinley Leal MD cc: Dr. Franc Hills MD cc: Franc Hills [id number] [facility] [id number] Results of consultation to be transmitted via electronic medical record for those providers who practice within [facility] or with access to [email or web address] via [employer] Connect, or via letter. 1. This document has been created with the use of voice recognition technology. It may contain inaccuracies: (e.g. misspellings, inaccurate syntax or word sense) that have escaped review. 2. The nurse practitioner, nursing staff and medical assistants are a major part of YOUR TREATMENT TEAM and will be handling your phone calls and inquiries, if any. Unless explicitly told otherwise at the time of your office visit, your study results and ensuing treatment plans will be discussed during your follow-up appointment. If you do not have a follow-up appointment and wish to discuss any issues, please set up an appointment. 3. It is my practice to not fill disability or any other insurance-related forms/documentation. All of the office notes, study results, and other pertinent documentation generated as part of your evaluation will be available to you and to your Primary Care Physician (PCP). Use of this material to complete such forms will be at the discretion of your PCP/referring physician. documented in this encounter [facility] 12-09-2022 Miscellaneous Notes [facility]/[place], Patient does have a refill of Lorazepam (Ativan), can fill tomorrow. Kari Briones LPN documented in this encounter [facility] 12-09-2022 History of Presen t illness Narrative This is a 76 year old male diagnosed upon referral with mac hole left eye s/p PPV ~9 years ago. Visual acuity with correction is 20/25 RE and 20/30 LE. IOP is 14 /14. Anterior segment exam is significant for centered PCL. Dilated fundus examination demonstrates closed hole. OCT with reconstution of EZ with abnormal foveal contour LE. Right eye demonstrates resolution of subfoveal RPE disruption and SRF, that we saw in 2020 RE, around the time of lumbar related back pain. This transient disturbance of the cells beneath the retina, called the RPE, may have originated from steroid use for back pain, or high blood pressure. It is totally resolved, everything looks great, and there are no worries regarding this nice pt's ophthalmic exam. I have confirmed and edited as necessary the relevant ophthalmic history, ROS, and the neuro exam findings as obtained by others. I have seen and examined Alex Brooks. I have discussed the case and the management of this patient's care with the Resident/Fellow, if applicable. I also have reviewed and agree with the assessment and plan as stated above and agree with all of its relevant components. documented in this encounter [facility] 12-06-2022 Miscellaneous Notes My chart message to pt. 1) I doubt the vaccines impact his INR. 2) If we substitute coumadin, it will be Eliquis 5 mg twice daily. Patient calls to check on provider response. Notified patient provider hadn't got a chance to review but we would call him once reviewed and advised on. Antoinette Meadows RN Patient calls and states that he had flu shot on Thursday and RSV shot on Thursday . Patient asking if this can affect his INR results? Patient states that government is working on getting certain medications for patient's cheaper. One of those medications is Eliquis (which is currently too expensive). Patient asking for future references if provider was to put patient on Eliquis, which dosage would provider start patient on? Please review and advise, Tammie Munguia RN documented in this encounter [facility] 12-04-2022 Miscellaneous Notes Patient notified, verbalized understanding. Anticoag Tracker updated. Kari Briones LPN Take 5 mg for one day. Then continue Coumadin dose 10 mg daily. INR in 2 weeks. Last INR: INR Home [facility]k 3.3 12/03/2022 Current dose of coumadin is: 10 mg daily. Last date of dose change: 11/25/22. Previous INR (date and result): 1.7 on 11/25/22 Additional Clinical Information or narrative: yes: patient had flu shot on Thursday and RSV on Thursday . Not sure if thiscould be the cause in result. Patient also asking if PCP would prescribe Eliquis what dosage would be prescribed. Patient would like to check with insurance what the cost would be. documented in this encounter [facility] 12-03-2022 Miscellaneous Notes Request to hold anticoagulation form sent to scanning. Date signed 11/26/22 documented in this encounter [facility] 12-02-2022 Miscellaneous Notes Patient calls to let provider office know Kanika will be faxing over vaccination update for flu shot and RSV injections which patient recently received. Will wait to update until receive records. Patient also going to be having INR done soon and not sure if it will effect those results so he is updating staff on that as well. Antoinette Meadows, MORIAH documented in this encounter [facility] 12-01-2022 Miscellaneous Notes Srinivas Baxter APRN.CNP Pt called to let you know he got a flu shot today 12-01-22 [facility] in [place]. Pt reports he will be getting an RSV injection tomorrow. He will be getting his INR done on 12-03-22. [facility] to send you confirmation on vaccines given with information on the vaccines. Maribel Oden LPN documented in this encounter [facility] 11-24-2022 History of Presen t illness Narrative This note was created using [employer]. Subjective Patient presents with: F/U 3 Month Alex Brooks is a 77 year old male was here for chronic opioid management. He saw neurosurgeon and has decided to seek another nerve ablation with Dr. Leal instead of spine surgery. This is scheduled 12/23/22. Historically he has been able to come off Percocet after this procedures for months if not a few years. Adapted from CDC guidelines: Opioids can provide short term benefits for moderate to severe pain. Scientific evidence is lacking for benefits to treat chronic pain. Before prescribing or adjusting dose 1. Assess PAIN & FUNCTION with validated pain scale. (PEG scale where 30% improvement from baseline is clinically significant) Q1: What number from 0-10 best describes your PAIN in the past week? (0=no pain, 10=worst you can imagine) Answer: 7 Q2: What number from 0-10 best describes how, during the past week, pain has interfered with your ENJOYMENT OF LIFE? (0=not at all, 10=complete interference) Answer: 6 Q3: What number from 0-10 best describes how, during the past week, pain has interfered with your GENERAL ACTIVITY? (0=not at all, 10=complete interference) Answer: 6 Total score=19 Previous score=18 2. Consider if NON OPIOID therapies are appropriate. (NSAIDs, TCAs, SNRI, anti-convulsants, exercise or physical therapy, cognitive behavioral therapy) Side effects. 3. Talk about the TREATMENT PLAN. - Annual OPIOID AGREEMENT current. No. - Realistic goals for pain and function discussed. Yes. Specific goals: maintain ADLs - Benefits, side effects, and risks (e.g. Addiction, overdose) discussed. Yes. - Criteria for stopping or continuing opioid discussed. Yes. - Criteria for regular assessment every 2 to <3 months discussed. Yes. - Referral to specialist(s); [address] Leal, ablation scheduled. He is hoping to come off Percocet.. - 4. Evaluate RISK of HARM or MISUSE. - Risk factors reviewed. Yes - OARRS checked. Yes - UDS ordered. Yes Last reported dose: - Medication interactions checked. Yes. - Concern for OPIOID USE DISORDER, aberrant behavior. No. Review of Systems Constitutional: Negative for fever and unexpected weight change. Respiratory: Negative for shortness of breath. Cardiovascular: Negative for chest pain. Gastrointestinal: Negative. Musculoskeletal: Positive for back pain. Neurological: Positive for numbness. 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 rosuvastatin (CRESTOR) 20 mg tablet Take 1 tablet by mouth once daily. potassium chloride (KLOR-CON 10) 10 mEq tablet Take 1 tablet by mouth twice daily. famotidine (PEPCID) 40 mg tablet Take 1 tablet by mouth once daily as needed. lisinopril-hydroCHLOROthiazide (PRINZIDE,ZESTORETIC) 20-12.5 mg per tablet Take 2 tablets by mouth once daily. (Patient taking differently: Take 0.5 tablets by mouth twice daily. Dosage varies based on daily BP) ascorbic acid (VITAMIN C ORAL) Take 2,000 Units by mouth once daily. Cholecalciferol, Vitamin D3, 75 mcg (3,000 unit) tab Take by mouth. aspirin 81 mg cap Take by mouth. hydrocortisone 2.5 % cream Seldom vitamin B complex (B COMPLEX 1 ORAL) magnesium oxide 400 mg magnesium cap Take 1 capsule by mouth once daily. (Patient taking differently: Take 500 mg by mouth twice daily. 500mg daily) SAW PALMETTO ORAL Take 400 mg by mouth twice daily. coenzyme Q10 (COENZYME Q-10) 100 mg cap capsule Take 400 mg by mouth once daily. Cyanocobalamin 2,500 mcg subl Dissolve under the tongue twice daily. calcium, elemental, tab Take 600 mg by mouth twice daily. multivitamin (SOFYA MULTIVITAMIN) tablet Take 1 tablet by mouth once daily. oxyCODONE-acetaminophen (PERCOCET) 5-325 mg tablet Take 1 tablet by mouth every 4 hours as needed for pain for up to 7 days. No current facility-administered medications for this visit. Objective BP 128/84 (BP Site: Left Arm, BP Position: Sitting, BP Cuff Size: Large Adult) Pulse 72 Wt 79.1 kg (174 lb 4.8 oz) BMI 23.00 kg/m Physical Exam Constitutional: General: He is not in acute distress. Cardiovascular: Rate and Rhythm: Normal rate and regular rhythm. Heart sounds: No murmur heard. No gallop. Pulmonary: Breath sounds: Normal breath sounds. Musculoskeletal: Right lower leg: No edema. Left lower leg: No edema. Neurological: Mental Status: He is alert. Gait: Gait abnormal. Assessment and Plan 1. Chronic low back pain without sciatica, unspecified back pain laterality - ICD9: 724.2, 338.29, ICD10: M54.50, G89.29 (primary diagnosis) - Reviewed risks, benefits, medication interactions per HPI. Agreement renewed. Ablation scheduled next month per pain management. - OXYCODONE-ACETAMINOPHEN 5 MG-325 MG TABLET 2. Primary hypertension - ICD9: 401.9, ICD10: I10 - Controlled 3. Kidney insufficiency - ICD9: 593.9, ICD10: N28.9 Monitored. - CBC - BASIC METABOLIC PNL 4. Impaired fasting glucose - ICD9: 790.21, ICD10: R73.01 Monitored. - HGB A1C Franc Hills MD documented in this encounter [facility] 11-19-2022 Miscellaneous Notes Secured message sent to Dr. Leal to confirm he can proceed with Bilateral RFA's during once procedure due to Coumadin use Called and spoke with the patient. The patient is scheduled for a bilateral L4-5, L5-S1 RFA with Dr. Leal on 12/23/22. (Ordered by Dr. Johns). The patient states, in the past, Dr. Leal has always done bilateral on him at the same time. I review the patient's chart and Dr. Leal has done bilateral on him on 05/10/20. The patient is also scheduled for an appointment with Dr. Leal on 12/10/22. The patient states that he will keep this appointment ONLY if Dr. Leal does not want to do bilateral. If Dr. Leal agrees to doing this injection bilaterally in the same day, then he cancel the 12/10/22 follow up appointment. The patient would like to know the CPT codes and the dates of the last ablations. OK to send this information via [employer]. Patient instructed to hold the following medication(s) prior to the procedure: - Coumadin for 5 days prior - ASA 81 for 2 days prior A request to hold Coumadin and ASA81 will be sent to the patient's PCP. Pre-procedure instructions reviewed over telephone and a list of instructions were sent via [employer]. Patient verbalized understanding with no additional questions or concerns at this time. The patient has asked for a phone call to let him know if Dr. Leal agrees to do bilateral RFA in the same day or not. Hi my name is Alex Brooks for Dr. Leal and that is the patient's name. My phone number is [phone]. I forgot all the other stuff you needed. I have an appointment with Dr. Leal on 17 December which is fine I do not wanna cancel that appointment but I have some questions for his nurse prior to that and I called yesterday and still no one has called me back so I would like to speak to Dr. Leal's nurse about some questions that I have something for my insurance and something for myself and that's about it so if someone would please call me at [phone] and once again it's Alex Brooks and I'm a previous patient of Dr. Leal and as I said I have an appointment right now that I don't want canceled for December 17 and that's about it. Thank you Received voicemail 11-12-22 at 10:04 AM. Hi my name is Alex Brooks. My phone number is [phone]. I live in [place] by the way I made an appointment to see Dr. Leal for 17 December. He has done ablation shots only before but he hasn't seen me in three years. He also has all the information and MRIs and everything. So I got a message on my chart this morning from a nurse practitioner by the name of Carlos maybe pronounce wrong saying that I should go ahead and schedule the ablation and gave me your phone number to do it. The problem is I haven't seen Dr. Leal does he want to see me, does he have enough information. Should I go ahead and schedule it. So I have those questions so if someone would please call me back and tell me what to do as I said I just had seen Dr. Leal like four times and I have a very specific instructions for how the ablation should be done because I do bilateral with local. So anyway someone please give me a call so I can know what to do next. Thank you. Patient is a consult from Dr. Johns. Appointment with Dr. Leal can be cancelled. Injection Type - Lumbar Medial branch radiofrequency rhizotomy: Bilateral; Level: L4-5 and L5-S1 documented in this encounter [facility] 11-18-2022 Miscellaneous Notes History of injection/rfa: 05/10/2020 - Bilateral L4-5 and L5-S1 Lumbar Facet Medial Branch Nerve Radiofrequency Ablation under fluoroscopy - CPT 97923 and 99400 03/20/2014 - Left L4-5 and L5-S1 Lumbar Facet Medial Branch Nerve Radiofrequency Ablation under fluoroscopy - CPT 92967 and 94183 03/13/2014 - Right L4-5 and L5-S1 Lumbar Facet Medial Branch Nerve Radiofrequency Ablation under fluoroscopy - CPT 01903 and 85748 09/02/2011 - Left L4-5 and L5-S1 Lumbar Facet Medial Branch Nerve Radiofrequency Ablation under fluoroscopy - CPT 94640 and 19393 08/07/2011 - Right L4-5 and L5-S1 Lumbar Facet Medial Branch Nerve Radiofrequency Ablation under fluoroscopy - CPT 17826 and 85309 05/19/2011 - Bilateral L4-5 and L5-S1 Lumbar Facet Medial Branch Block under fluoroscopy CPT - 65142 and 80813 05/05/2011 - Bilateral L4-5 and L5-S1 Lumbar Facet Medial Branch Block under fluoroscopy CPT - 75567 and 84448 documented in this encounter [facility] 11-12-2022 Miscellaneous Notes Pt called and is notified of providers results and instructions. Pt voices understanding. Cyndy Whelan RN Looks like dose adjusted September and getting every 2 weeks INRs--recheck in 2 weeks Noted regarding pain med Patient called back and said to cancel the request for the Percocet rx he will wait until his appt with PCP. Last INR: 2.1 this am at 11 am Current dose of coumadin: 7.5mg Sundays, 10mg rest of days. Previous INR (date & result): 10/28/22 2.4 Additional clinical information or narrative: No changes in diet or medications. No bleeding or bruising. No alcohol. Pt is also requesting a refill for percocet. States he is having back pain, saw Dr Johns yest to discuss surgery but he opted for ablation injections with Dr Leal. Seeing Dr Leal 12/17/22. Requested Prescriptions Pending Prescriptions Disp Refills oxyCODONE-acetaminophen (PERCOCET) 5-325 mg tablet 42 tablet 0 Sig: Take 1 tablet by mouth every 4 hours as needed for pain for up to 7 days. Please review and advise. Corrina Velarde LPN documented in this encounter [facility] 11-12-2022 Miscellaneous Notes Spoke with Mr Brooks over the phone. Clarified reason for procedure ordered and apologized for the miscommunication. He will continue with his appointment with Dr Leal as scheduled. Phone call made without answer. Voicemail left to call office with questions. Patient called stating he saw Dr Johns yesterday and surgery was discussed. He wants to let Dr Johns know that he will first try the ablation shots with Dr Lael. If that doesn't work he will have the surgery. Patient will keep us updated. documented in this encounter [facility] 11-11-2022 Miscellaneous Notes Srinivas Baxter APRN.CNP Patient calls to let provider know that he saw Dr. Johns yesterday and surgery was discussed but he has opted to see Dr. Leal again for ablation injections. If that doesn't work then he will try the surgery. Patient reports he will discuss more with provider at his appointment on 11/24. Patient aware provider is out of office just wanted sent FYI prior to appt. Antoinette Meadows RN documented in this encounter [facility] 11-10-2022 History of Presen t illness Narrative Images from the original note were not included. SPINE SURGERY NEW PATIENT This is an in-person visit. PCP: Franc Hills MD REFERRING PROVIDER: Dr. Franc Hills SUBJECTIVE HISTORY OF PRESENT ILLNESS: Alex Brooks is a 77 year old male presenting alone. Complains of low back pain for many years > bilateral L5 radiculopathy. Pain is worst in the morning and slowly gets better throughout the day. The pain is worse with walking. Patient required rest to relieve the pain. This is associated with bilateral foot drop. Conservative management offering moderate relief particularly with the RFA. He denies any bowel bladder incontinence. He also complains of numbness and tingling in the posterior aspect of bilateral legs going down to the feet. He was previously diagnosed with neuropathy. He received a bilateral medial branch nerve RFA in [address] Leal. States the injection gave him significant pain relief for up to 3 years before previous symptoms returned. No previous spinal surgeries. CHIEF COMPLAINT: Lower back pain and leg numbness PRECIPITATING EVENT: None DURATION OF SYMPTOMS: Greater Than 1 Year PAIN EVALUATION 11/03/2022 0945 Pain Level: 7 Pain Location: Back-Middle Description: Sharp;Shooting;Stabbing;Stabbing /Not Incision;Stiffness Duration Amount of Time: 8 Duration Units: Hours Frequency: Continuous Intervention/Comfort measure: Medication;Heat;Support surface;Other: See comment Comments: Ablation has worked very well. Pain free 3+ years. Pain Radiation: low back, N/T from posterior aspect of legs down to feet Aggravating Factors: Walking Alleviating Factors: Medications DERMATOMAL DISTRIBUTION: Right: L5 Left: L5 AMBULATORY STATUS: Impaired Community Distances ANTIPLATELET OR ANTICOAGULATION STATUS: No PREVIOUS CONSERVATIVE TREATMENTS: PREVIOUS SPINAL SURGERY: None 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 Tests (Current) Use of Anticoagulants Colonic Polyp History of Left-Sided Carotid Endarterectomy Balance Problem 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 Kidney Insufficiency Pad (Peripheral Artery Disease) (Hcc) Spinal Stenosis of Lumbar Region 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 Carotid stenosis, left 02/21/2019 s/p CEA Closed nondisplaced fracture of distal phalanx of right great toe 01/16/2021 Colonic polyp 11/29/2018 DDD (degenerative disc disease), lumbar 03/08/2014 Elevated prostate specific antigen (PSA) 09/15/2016 Esophageal reflux Fall at home 01/05/2018 Right Rib Fracture Hypertension Hypertrophy of prostate with urinary obstruction and other lower urinary tract symptoms (LUTS) 09/04/2008 With mild night-time symptoms, exam ok as of 09/2008 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 Related to sugar? -- see fasting glucose 2008; Impaired fasting glucose 10/11/2008 Under 110; See labs 10/12 INSOMNIA NOS 09/04/2008 Doing well with as-needed benzo at night Left bundle branch block 05/28/2010 Lumbago 02/23/2009 Lumbosacral spondylosis without myelopathy 08/07/2011 Lung disease [place] Fever Macular hole left eye Macular hole of left eye 06/19/2020 Mixed hyperlipidemia 10/05/2008 Neuropathy Nuclear sclerosis of right eye PE (pulmonary embolism) 09/04/2011 Peripheral vascular disease (HCC) Perirectal abscess 12/12/2008 Postconcussion syndrome 11/11/2011 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) 05/08/2014 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 REMV CATARACT EXTRACAP,INSERT LENS Left TRANSCATH RETRIEVAL,PERCUT 09/20/2012 IVC filter retrieval TRIESENCE INTRAVITREAL INJECTION OS (LEFT EYE) 10/25/2013 VENA CAVA FILTER 09/26/2011 later removed FAMILY HISTORY Problem Relation Age of Onset Hypertension Mother (longevity on mom's side) Cataract Mother Coronary Artery Disease Father father who of sudden cardiac arrest age 74 Heart Father heart stopped Blood Disease Brother pulmonary embolism history No Known Problems Maternal Grandmother No Known Problems Maternal Grandfather No Known Problems Paternal Grandmother Heart Paternal Grandfather Colon Cancer Other no close relatives known Prostate Cancer Other none Emphysema Other none Social History Tobacco Use Smoking status: Former Packs/day: 1.00 Years: 20.00 Total pack years: 20.00 Types: Cigarettes Quit date: 04/06/1980 Years since quittin.6 Smokeless tobacco: Never Vaping Use Vaping Use: Never used Substance Use Topics Alcohol use: Not Currently Comment: stopped 07/19/2022 Drug use: Yes Types: Marijuana ALLERGIES Allergen Reactions Cyclobenzaprine Other: See Comments Double vision Keflex [Cephalexin] Rash MEDICATIONS: warfarin (COUMADIN) 5 mg tablet Take 1.5 tablets on Sundays and 2 tablets Thursday through Saturdays oxyCODONE-acetaminophen (PERCOCET) 5-325 mg tablet Take 1 tablet by mouth every 4 hours as needed for pain for up to 7 days. LORazepam (ATIVAN) 2 mg tab Take 1 tablet by mouth at bedtime as needed (insomnia) for up to 180 days. rosuvastatin (CRESTOR) 20 mg tablet Take 1 tablet by mouth once daily. potassium chloride (KLOR-CON 10) 10 mEq tablet Take 1 tablet by mouth twice daily. famotidine (PEPCID) 40 mg tablet Take 1 tablet by mouth once daily as needed. lisinopril-hydroCHLOROthiazide (PRINZIDE,ZESTORETIC) 20-12.5 mg per tablet Take 2 tablets by mouth once daily. (Patient taking differently: Take 0.5 tablets by mouth twice daily. Dosage varies based on daily BP) ascorbic acid (VITAMIN C ORAL) Take 2,000 Units by mouth once daily. Cholecalciferol, Vitamin D3, 75 mcg (3,000 unit) tab Take by mouth. aspirin 81 mg cap Take by mouth. hydrocortisone 2.5 % cream Seldom vitamin B complex (B COMPLEX 1 ORAL) magnesium oxide 400 mg magnesium cap Take 1 capsule by mouth once daily. (Patient taking differently: Take 500 mg by mouth twice daily. 500mg daily) SAW PALM[place]ENTINAO ORAL Take 400 mg by mouth twice daily. coenzyme Q10 (COENZYME Q-10) 100 mg cap capsule Take 400 mg by mouth once daily. Cyanocobalamin 2,500 mcg subl Dissolve under the tongue twice daily. calcium, elemental, tab Take 600 mg by mouth twice daily. multivitamin (SOFYA MULTIVITAMIN) tablet Take 1 tablet by mouth once daily. REVIEW OF SYSTEMS: PAIN ASSESSMENT: See HPI. GENERAL: Denies fever, chills malaise and weight loss. HEENT: No recent change in vision or hearing. CARDIOVASCULAR: Denies chest pain, history of A-fib, valvular disease, or pacemaker/ICD. RESPIRATORY: Denies SOB, sputum production, and hemoptysis. GI: Denies GI ulcers, inflammatory disease, or liver disease. : Denies change in frequency or urgency, kidney disease, and burning with urination. MUSCULOSKELETAL: Lower back pain. SKIN: Denies rash or itching. PSYCHOLOGICAL: Denies uncontrolled depression or anxiety. NEURO: Acute numbness and tingling in posterior aspect of legs down to feet. ENDOCRINE: Denies diabetes, thyroid disease. HEMATOLOGY/LYMPHOLOGY: Denies cancer, bleeding or clotting disorders, anemia,and DVT's. ALLERGIC/IMMUNOLOGICAL: Mild allergic reactions to Keflex and cyclobenzaprine. Patient Entered Questionnaires Spine Questions 11/03/2022 Pain Location: Lower back Pain Duration: 3-6 months Pain over last 6 months: Every day or nearly every day in the past 6 months Symptoms from neck/cervical spine: No Employment Status: Retired Involved in law suit/legal claim: No Spine Red Flags 04/10/2020 Any type of cancer: No Unexplained fever: No Bowel or bladder disfunction: No Unintentional weight loss: No Osteoporosis: No PROMIS Score Percentiles Physical Health 04/10/2020 09/25/2022 11/03/2022 Physical Function Percentile 24* 16* 12 Sleep Percentile 58 - 34 Fatigue Percentile - - 46 Pain Interference Percentile 12 27* 10 PROMIS SOCIAL ROLE SCORE 03/09/2020 11/03/2022 Social Role Satisfaction Percentile 58 31 PROMIS Global Health Scale 05/26/2022 08/15/2022 11/03/2022 Physical Health Percentile 41 41 41 Mental Health Percentile 63 63 63 Percentiles provide an indication of how the patient's score ranks in relation to the general population. Higher percentile rankings indicate better function/quality of life. 50th percentile is the average of the general population and indicates half of respondents had a worse score. Depression Screening: PHQ-9 04/30/2010 02/10/2011 11/03/2022 Score 2 2 3 PHQ-9 Self-harm Question 04/30/2010 02/10/2011 11/03/2022 Thoughts that you would be better off , or of hurting yourself in some way 0 0 0 PHQ-9 Self-Harm (Item 9) response options: 0 Not at all 1 Several days 2 More than half the days 3 Nearly every day PHQ-9 Levels: 0-4 No to mild depression 5-9 Mild depression 10-14 Moderate depression 15-19 Moderately severe depression 20-27 Severe depression OBJECTIVE: PHYSICAL EXAM BP 132/73 (BP Site: Left Arm, BP Position: Sitting, BP Cuff Size: Regular Adult) Pulse 72 Ht 185.4 cm (6' 1) Wt 80.5 kg (177 lb 6.4 oz) SpO2 97% BMI 23.41 kg/m Oriented x3 PERRL FS Motor: UE D 5/5, B 5/5, T 5/5, G 5/5, HI 5/5 LE HF 5/5, KE 5/5, DF 3/5, PF 4/5, EHL 3/5 Gait is antalgic given bilateral foot drop Reflexes 2+ Hip exam is normal NEURO TESTS: None DATA REVIEW MRI lumbar spine shows severe L4-5 central lateral recess stenosis causing complete effacement of the thecal sac. ASSESSMENT/PLAN (M54.50, G89.29) Chronic low back pain without sciatica, unspecified back pain laterality (M48.061) Spinal stenosis of lumbar region, unspecified whether neurogenic claudication present Patient with severe L4-5 stenosis and associated bilateral foot drop chronic in nature Given the severity of the stenosis and extent of symptoms I recommended patient to proceed L4-5 laminectomy over conservative management understanding the prior good response to RFA. Patient would like to think about it let us know Follow up: for preoperative evaluation SIGNATURE: Salas Johns MD PATIENT NAME: Alex Brooks DATE: November 10, 2022 TIME: 2:38 PM PAGER: documented in this encounter [facility] 11-07-2022 Miscellaneous Notes Patient calling and requesting Dr. Hills to make correction to his record regarding current Coumadin dose instructions. Patient states he has been taking Coumadin 7.5 mg on Sundays and 10 mg all other days for several months or more. Pt notes recent Coumadin script to [facility] on 11/06 states for patient to take 10 mg Thursday-Thursday and 7.5 mg Thursday and Thursday, which he does not follow. Pt states he does not need a new script sent to [facility]-that he knows what doses to take. He only wants to ensure his record is accurate that he takes Coumadin 7.5 mg on Sundays and 10 mg all other days. Graciela Parker RN documented in this encounter [facility] 11-06-2022 Miscellaneous Notes Patient said his last rx was only 150 tablets filled on 08/25/2022. He is calling [facility] to check with them since computer shows 240 tablet with one refill on 08/25/2022. Still wants request sent to PCP. Patient has been identified by name and date of : Yes, Patient phones for refill(s): Requested Prescriptions Pending Prescriptions Disp Refills warfarin (COUMADIN) 5 mg tablet 240 tablet 1 Sig: Take 2 tabs daily Mondays thru Fridays. Take 1&1/2 tablets Saturdays and Sundays. Date of last office visit in primary care: 08/22/2022 3 month follow-up: 11/24/2022 Last 2 Encounter Wt Readings: Date: Wt: 08/22/2022 79.8 kg (176 lb) 08/11/2022 81.2 kg (179 lb) Previous labs/tests for medication: Coumadin: PT INR (no units) Date Value 10/28/2022 2.4 (ext) INR (no units) Date Value 10/28/2022 2.4 Please advise. Thank you. Kari Briones LPN documented in this encounter [facility] 11-06-2022 Miscellaneous Notes My chart message to pt. Standing orders x 1 year. Pt calling to see if you will put in a new standing order for INR that will take him into 2023. He can see where he has a standing order on 12/26/21 and 02/19/22. Please advise pt. Okay to leave a detailed message. Maribel Oden LPN documented in this encounter [facility] 10-29-2022 Miscellaneous Notes Patient notified of provider's orders below with verbalized understanding. Pt repeated instructions back to nurse. Graciela Parker RN Continue Coumadin dose. INR in 2 weeks. Last INR: INR Home CoaguChek 2.4 10/28/2022 Current dose of coumadin is: 10 mg daily except on Thursday 7.5 mg.. Last date of dose change: 09/11/2022.. Previous INR (date and result): 2.2 10/14/2022 No changes in diet or medications. No bleeding or bruising noted. No alcohol for 5 days. documented in this encounter [facility] 10-16-2022 Miscellaneous Notes Patient active MyChart. Patient notified via [employer] message. Jennifer Mejia MA - No dose change recommended. - Consider non narcotic medications like medications for neuropathic pain like pregabalin (Lyrica), gabapentin (Neurontin) he had taken in the past, or duloxetine (Cymbalta) a centrally acting analgesic. Pt called to check status and if he needs to come in he is willing. Please advise pt when this has been sent or if there is a problem. Maribel MARSHALL Patient calling requesting refill on Percocet rx, asking if could be increased to the 10/325 mg tablets for his back pain. Patient said the 5/325 mg tablets did not take care of his back pain completely. Patient said he does not have his spine appt until November and this would be the only time he is asking for this. Patient uses [facility] for his pharmacy. Can send patient my chart message with response. Please advise documented in this encounter [facility] 10-02-2022 History of Presen t illness Narrative Per Triage: Alex Brooks is a 77 year old male that requests evaluation of spine. Per review, they have symptoms of lower back pain. Difficulty walking. Numbness intermittent in both legs Request: 1st available Referring provider: Franc Hills MD Patient out of state: no 2nd opinion: no Prior spine surgery: no CMT: Percocet Muscle relaxer Studies (Reports unless indicated) MRI lumbar spine 09/24/22: Localizer images: Moderate obesity. No paraspinal masses. Small left-sided renal cysts. Alignment: Mild scoliotic curvature convex left, apex L3-L4. Sagittal alignment remains grossly normal. Bone marrow signal/fracture: No evidence of pathologic marrow infiltration. No evidence of prior fracture. Conus: Distal cord terminates normally at mid L1. Paraspinal soft tissues: Paraspinal soft tissues are within normal limits. Lower thoracic spine: Visualized lower thoracic canal and foramina are patent. L1-L2: Canal and foramina are patent. L2-L3: Mild facet degenerative change. Canal and foramina are patent. L3-L4: Mild disc bulging, some left lateral protrusion, and facet degenerative change. Moderate spinal stenosis. [id number] foraminal narrowing. L4-L5: Loss of disc height, disc bulging, and prominent facet degenerative change. Severe spinal stenosis, worsened when compared with the previous exam. (5:19; 2:11). Mfoo-zk-[id number] right and severe left foraminal narrowing. L5-S1: Loss of disc height, disc bulging, and facet degenerative change. Central thecal sac remains grossly patent. No gross compression of either descending S1 nerve root sleeve. Foramina remain grossly patent. Sacrum and iliac wings: No acute findings. No evidence for fracture. Disposition: Based on triage, recommend patient be scheduled with surgical SCOT - no injections tried. If VV, please advise pt to send or upload relevant outside images prior to appt so they will be available for review during the appt If office visit, please advise pt to hand carry relevant images on CD to the appt so they can be reviewed during the appt Anette Omalley PA-C Patient name: Alex Brooks Are you being referred by a [facility] Provider or Pain Management Provider at [facility]? No If answer is YES please schedule directly with surgeon, triage does not need to be completed. Is this a self-referral No If not, who is the Referring Provider Franc Hills MD, order in [facility] Is this a 2nd opinion? No Were you offered surgery? No MRI/CT/myelogram within 12 months? Yes If NO, please refer to medical spine or PCP to complete above imaging, triage does not need to be completed If YES, please ask for the name/address of the facility where the MRI/CT/myelogram was completed: [facility] MRI/CT/myelogram viewable in [facility]: Yes If not, please provide [phone] to fax in imaging reports for review. Also, please inform patient to hand carry imaging disc to appointment. XR (spine) within 12 months: No If YES, please ask for the name/address of the facility where the XR was completed: Dr. Johnston's patients: Have you had previous EMG/Nerve Conduction Study, Ultrasound, or MRI for these same symptoms? If YES, please ask for the name/address of the facility where they were completed: Requested provider (First and Last name): any Are you interested in a virtual visit if offered? No 1. Where are you having symptoms related to this visit? Back pain Yes LBP Leg pain No Arm pain No Neck pain No 2. Are you having any of the following symptoms: Difficulty walking Yes Numbness Yes buttocks to calf of both legs (intermittent) Weakness No Trouble using your hands? No 3. Have you had any injections or physical therapy in the last 12 months? No If YES then please ask for the name/address of the facility where the injections and/or physical therapy was completed Have you tried any other kinds of non-surgical treatments in the last 12 months? (For example: NSAIDS, muscle relaxants, analgesics, oral steroids, Chiropractor, Acupuncture): muscle relaxants--stopped taking due to side effects 4. Are you currently taking daily prescribed narcotic medications for your current symptoms (For example Oxycodone, Hydrocodone, Tramadol, Morphine, Other)? Yes (PRN) Percocet 5. Have you had previous spinal surgery for this same symptoms? No If YES please ask for the name of facility/address of where the surgery was completed: Additional Comments [phone] documented in this encounter [facility] 09-30-2022 Miscellaneous Notes Patient notified of below Coumadin, Anticoag Tracker updated. Kari Briones LPN Per Dr. Hills: Continue Coumadin same dose. INR in 2 weeks. Patient calls in to answers anticoagulation questions: No recent antibiotics. No unusual bleeding or bruising. No missed doses. No alcohol. Dietary changes: Reduced consumption of green vegetables especially broccoli. Patient also said to let provider know he is still waiting to hear back from [facility] on scheduling with correct Spinal Provider. He said if he doesn't hear from them by tomorrow he is to call them back. Antoinette Meadows RN Last INR: INR Home CoaguChek 2.1 09/30/2022 Current dose of coumadin is: 7.5mg Sundays, 10mg all other days. Last date of dose change: 09/11/2022. Previous INR (date and result): 2.4 09/23/2022 documented in this encounter [facility] 09-25-2022 Miscellaneous Notes Cancelled pain mgmt appt per PCP. Patient notified. Jennifer Mejia MA Patient states he will plan on going to his appt tomorrow to see Dr. Leal in Pain Mgmt, unless Dr. Hills thinks otherwise. Please advise on message below. Thank you. Patient asking for clarification: Pt was notified today of consult order placed by Dr. Hills for Consult for Spine Surgery. A maintenance scheduler has made two appointments for patient and he is asking if these two appointments are appropriate for the consult order: Electrical Engineering Manager made appt for pt to see Dr. Mckinley Leal with Pain Mgmt in [place]. This appt is for tomorrow and pt asking if this appt is appropriate for the consult order placed today? Electrical Engineering Manager made appt for pt to also see Sunny Orta PA-C of Spine Med in [place] for next month. Pt asking if this appt is appropriate or if needs to see Spine Surgery? Please contact patient with update today, if possible. Thank you. Patient notified of below recommendations, advise. PSS please contact Patient to schedule. Kari Briones LPN ASSESSMENT/PLAN: 1. Chronic low back pain without sciatica, unspecified back pain laterality - ICD9: 724.2, 338.29, ICD10: M54.50, G89.29 (primary diagnosis) - CONSULT TO SPINE SURGERY 2. Spinal stenosis of lumbar region, unspecified whether neurogenic claudication present - ICD9: 724.02, ICD10: M48.061 -CONSULT TO SPINE SURGERY Kidney cysts are not a concern. Franc Hills MD Patient phoned to add to message below- asking if he needs to be concerned about the renal cysts? Patient calling for MRI results. Asking what the next step will be? Molly M Lentine, RN documented in this encounter [facility] 09-18-2022 Miscellaneous Notes Okay. Patient calling to ask what his instructions are. Went over notes below from Dr Hills, patient said can not test Thursday, he had bottle wine last night. He was going to test again on Friday 09/22. I phoned [facility] and spoke to Mike and he said the INR resulted 2.0 was lab done per [facility]. He said the 1.0 was not done at [facility] was manually put in not sure if by Gabby Rm LPN. Notify lab of potential quality issue (discrepant results). Continue Coumadin dose INR in 2 days. Patient calling back to say he received INR result from [facility] through My Chart saying his INR=1.0. Molly Ann RN Last INR: INR Home CoaguChek 2.0 09/17/2022 Current dose of coumadin is: 7.5 mg on and 10 mg all other days. Last date of dose change: 09/11/2022. Previous INR (date and result): 09/11/22 1.6 Additional Clinical Information or narrative: Yes Patient called with INR results of what I thought he said as 1.0. Attempted to call patient back with no answer and message was left. documented in this encounter [facility] 09-11-2022 Miscellaneous Notes Pt called and is notified of providers message and instructions. Pt voices understanding. Cyndy Whelan RN Increase Coumadin dose. 7.5 mg on Sundays. 10 mg on all other 6 days of the week. INR in one week. . Patient calls to answer anticoagulation questions. Current INR: 1.6 in-house on 09/11/2022 Current Coumadin dose: Patient took Coumadin 5 mg on 09/03/2022 and 09/04/2022 then resumed 7.5 mg dose on Saturdays and Sundays with 10 mg all other days. No unusual bleeding or bruising. No recent antibiotics. No missed doses. No diet changes or alcohol. Please review and advise, Antoinette Meadows RN documented in this encounter [facility] 09-10-2022 Miscellaneous Notes Patient has been identified by name and date of : Yes Patient phones for refill(s): Requested Prescriptions Pending Prescriptions Disp Refills LORazepam (ATIVAN) 2 mg tab 90 tablet 1 Sig: Take 1 tablet by mouth at bedtime as needed (insomnia) for up to 180 days. Date of last office visit in primary care: 08/22/2022 3 month follow-up: 11/24/2022 Last 2 Encounter Wt Readings: Date: Wt: 08/22/2022 79.8 kg (176 lb) 08/11/2022 81.2 kg (179 lb) Previous labs/tests for medication: Not applicable Please advise. Thank you. Kari Briones LPN documented in this encounter [facility] 09-03-2022 Miscellaneous Notes PATIENT NOTIFIED OF SAME. Tracker updated. Looks like took extra pill back on July 02 when INR went up 3.9. If not already using weekly pill boxes for coumadin to make sure not taking extra dose or missing dose. Take 5 mg today and tomorrow, then resume 7.5 mg Sat and Sun with 10 mg rest of the week. Recheck INR in 1 week. Patient calls to answer anticoagulation questions. Current INR: 3.8 in-house on 09/03/2022. Current Coumadin dose: Coumadin 7.5 mg on Thursday and Thursday. Coumadin 10 mg all other days. Patient reports he thinks on Thursday2022 he might have taken two doses of Coumadin 7.5 mg for a total dose of 15 mg resulting in the elevated INR of 3.8. No unusual bleeding or bruising. No recent antibiotics. No missed doses. No diet changes or alcohol. Please review and advise, Antoinette Meadows RN documented in this encounter [facility] 08-11-2022 History of Presen t illness Narrative This note was created using [employer]. Subjective Patient reports low back pain acute on chronic for one week. The pain is located in sacroiliac region on the left intermittently with radiation down the back of the left leg and described as aching and 4-9/10 in severity. Pain is worse with first thing in the morning and better with standing and walking. Percocet helped pain and is taken only once daily if needed. He was interested in muscle relaxer. He had no injury. His hypertension was controlled. Glucose was still in prediabetic range. He expected this to be better since he stopped alcohol completely. Review of Systems Constitutional: Negative for fever and unexpected weight change. Gastrointestinal: Negative. Genitourinary: Negative. ACTIVE PROBLEM LIST Bph With Obstruction/Lower Urinary Tract Symptoms Insomnia, unspecified Hereditary and Idiopathic Peripheral Neuropathy Mixed Hyperlipidemia Impaired Fasting Glucose Lumbago Htn (Hypertension) Gait Abnormality Gerd (Gastroesophageal Reflux Disease) Recurrent Pulmonary Embolism (Hcc) Usp (Current) Use of Anticoagulants Colonic Polyp History of Left-Sided Carotid Endarterectomy Balance Problem 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 Kidney Insufficiency Pad (Peripheral Artery Disease) (Hcc) Social History Tobacco Use Smoking status: Former Packs/day: 1.00 Years: 20.00 Pack years: 20.00 Types: Cigarettes Quit date: 04/06/1980 Years since quittin.3 Smokeless tobacco: Never Vaping Use Vaping Use: Never used Substance Use Topics Alcohol use: Not Currently Comment: stopped 07/19/2022 Drug use: Yes Types: Marijuana Objective BP 118/72 (BP Site: Left Arm, BP Position: Sitting, BP Cuff Size: Large Adult) Pulse 80 Resp 16 Wt 81.2 kg (179 lb) BMI 24.28 kg/m Physical Exam Constitutional: General: He is not in acute distress. Appearance: He is not ill-appearing. Pulmonary: Effort: Pulmonary effort is normal. Musculoskeletal: Lumbar back: Spasms present. No tenderness or bony tenderness. Decreased range of motion. Negative right straight leg raise test and negative left straight leg raise test. Comments: Bilateral AFO. Neurological: General: No focal deficit present. Mental Status: He is alert. Sensory: No sensory deficit. Motor: No weakness. Gait: Gait abnormal. Comments: Chronic abnormality of gait. Assessment and Plan 1. Chronic low back pain without sciatica, unspecified back pain laterality - ICD9: 724.2, 338.29, ICD10: M54.50, G89.29 (primary diagnosis) Acute on chronic. Opioid refilled without change of dose or usage as discussed. Flexeril ordered for short term. Medication interactions were reviewed. - OXYCODONE-ACETAMINOPHEN 5 MG-325 MG TABLET - CYCLOBENZAPRINE 10 MG TABLET 2. Primary hypertension - ICD9: 401.9, ICD10: I10 - good control 3. Impaired fasting glucose - ICD9: 790.21, ICD10: R73.01 For recheck next week. Franc Hills MD documented in this encounter [facility] 08-08-2022 History of Presen t illness Narrative [facility] [place] Department of Cardiovascular Medicine VIRTUAL VIDEO VISIT ESTABLISHED OUTPATIENT VISIT SERVICE DATE: 08/08/2022 Patient: Alex Brooks SERVICE TIME: 11:10 AM : 1945 This is a virtual video visit. It required patient-provider interaction for the medical decision making as documented below. Alex Brooks has consented to this video encounter. I have communicated my name and active licensure. The patient's identity and physical location were verified at the time of this visit. Either the patient or their legal wire rope sales representative has been informed of the risks and benefits of -- and alternatives to -- treatment through a remote evaluation and consents to proceed with the evaluation remotely. Alex Brooks is a 76 year old male seen for Multisite atherosclerotic disease. CHIEF COMPLAINT Multisite atherosclerotic disease HISTORY OF PRESENT ILLNESS Mr. Brooks is a 76 year old male with a past cardiovascular history significant for 1) carotid artery stenosis status post left CEA in 06/2019, 20 to 39% stenosis in the right ICA 2) peripheral artery disease -mild disease at rest 01/2020 3) presumed coronary artery disease-no recent coronary angiogram, however, fixed defect noted on SPECT 06/2019 4) known left bundle branch block 5) recurrent pulmonary embolism (2011, 2014) on long-term anticoagulation with warfarin Since last visit, patient continues to do well. Denies any cardiac symptoms specifically no chest pain, shortness of breath, orthopnea, paroxysmal nocturnal dyspnea, pedal edema. Home blood pressures 110/70s. Recently cut down his alcohol intake as his fasting blood sugars were elevated. No episodes of bleeding. Few warfarin dose adjustments in the last few weeks. 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 Carotid stenosis, left 02/21/2019 s/p CEA Closed nondisplaced fracture of distal phalanx of right great toe 01/16/2021 Colonic polyp 11/29/2018 DDD (degenerative disc disease), lumbar 03/08/2014 Elevated prostate specific antigen (PSA) 09/15/2016 Esophageal reflux Fall at home 01/05/2018 Right Rib Fracture Hypertension Hypertrophy of prostate with urinary obstruction and other lower urinary tract symptoms (LUTS) 09/04/2008 With mild night-time symptoms, exam ok as of 09/2008 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 Related to sugar? -- see fasting glucose 2008; Impaired fasting glucose 10/11/2008 Under 110; See labs 10/12 INSOMNIA NOS 09/04/2008 Doing well with as-needed benzo at night Left bundle branch block 05/28/2010 Lumbago 02/23/2009 Lumbosacral spondylosis without myelopathy 08/07/2011 Lung disease [place] Fever Macular hole left eye Macular hole of left eye 06/19/2020 Mixed hyperlipidemia 10/05/2008 Neuropathy Nuclear sclerosis of right eye PE (pulmonary embolism) 09/04/2011 Peripheral vascular disease (HCC) Perirectal abscess 12/12/2008 Postconcussion syndrome 11/11/2011 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) 05/08/2014 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 REMV CATARACT EXTRACAP,INSERT LENS Left TRANSCATH RETRIEVAL,PERCUT 09/20/2012 IVC filter retrieval TRIESENCE INTRAVITREAL INJECTION OS (LEFT EYE) 10/25/2013 VENA CAVA FILTER 09/26/2011 later removed FAMILY HISTORY Problem Relation Age of Onset Hypertension Mother (longevity on mom's side) Cataract Mother Coronary Artery Disease Father father who of sudden cardiac arrest age 74 Heart Father heart stopped Blood Disease Brother pulmonary embolism history No Known Problems Maternal Grandmother No Known Problems Maternal Grandfather No Known Problems Paternal Grandmother Heart Paternal Grandfather Colon Cancer Other no close relatives known Prostate Cancer Other none Emphysema Other none Social History Tobacco Use Smoking status: Former Packs/day: 1.00 Years: 20.00 Pack years: 20.00 Types: Cigarettes Quit date: 04/06/1980 Years since quittin.3 Smokeless tobacco: Never Vaping Use Vaping Use: Never used Substance Use Topics Alcohol use: Not Currently Alcohol/week: 37.5 standard drinks Types: 15 Glasses of Wine (5oz) per week Comment: CAGE negative. Drug use: Yes Types: Marijuana ALLERGIES Allergen Reactions Coumadin [Warfarin] Rash Patient reports a rash when patient is on coumadin and any antibiotic is prescribed Keflex [Cephalexin] Rash CURRENT MEDICATIONS potassium chloride (KLOR-CON 10) 10 mEq tablet Take 1 tablet by mouth twice daily. oxyCODONE-acetaminophen (PERCOCET) 5-325 mg tablet Take 1 tablet by mouth every 4 hours as needed for pain for up to 7 days. famotidine (PEPCID) 40 mg tablet Take 1 tablet by mouth once daily as needed. lisinopril-hydroCHLOROthiazide (PRINZIDE,ZESTORETIC) 20-12.5 mg per tablet Take 2 tablets by mouth once daily. LORazepam (ATIVAN) 2 mg tab Take 1 tablet by mouth at bedtime as needed (insomnia) for up to 180 days. Do not start before March 20, 2022. ascorbic acid (VITAMIN C ORAL) Take 2,000 Units by mouth once daily. Cholecalciferol, Vitamin D3, 75 mcg (3,000 unit) tab Take by mouth. aspirin 81 mg cap Take by mouth. hydrocortisone 2.5 % cream Seldom rosuvastatin (CRESTOR) 20 mg tablet Take 1 tablet by mouth once daily. warfarin (COUMADIN) 5 mg tablet Take 2 tabs daily Mondays thru Fridays. Take 1&1/2 tablets Saturdays and Sundays. (Patient taking differently: Take 2 tabs daily) vitamin B complex (B COMPLEX 1 ORAL) magnesium oxide 400 mg magnesium cap Take 1 capsule by mouth once daily. (Patient taking differently: Take 400 mg by mouth twice daily.) SAW PALMETTO ORAL Take 400 mg by mouth twice daily. coenzyme Q10 (COENZYME Q-10) 100 mg cap capsule Take 400 mg by mouth once daily. Cyanocobalamin 2,500 mcg subl Dissolve under the tongue twice daily. calcium, elemental, tab Take 600 mg by mouth twice daily. multivitamin (SOFYA MULTIVITAMIN) tablet Take 1 tablet by mouth once daily. REVIEW OF SYSTEMS: GENERAL: Negative for: Weight loss or gain, Fever or Chills, Weakness and Sleep difficulties. HEENT: Negative for: Headache, Impaired Vision, Glasses, Hearing Impairment, Ringing in Ears, Nosebleeds, Poor dental care, Bleeding Gums, Dentures NECK: Negative for: Swelling, Pain, Stiffness RESPIRATORY: Negative for: Cough, Blood in Sputum, Shortness of breath, Wheezing, Apnea GASTROINTESTINAL: Negative for: Trouble swallowing, Heartburn, Change in bowel habits, Blood in stool, Dark black stools MUSCULOSKELETAL: Negative for: Muscle or joint pain, Stiffness , Joint swelling NEUROLOGIC/PSYCHIATRIC: Negative for: Weakness, Paralysis, Numbness, Tingling, Tremor, Nervousness, Depressed mood, Memory loss SKIN: Negative for: Rashes, Itching HEMATOLOGICAL/LYMPHATIC: Negative for: Easy bruising , Easy bleeding ENDOCRINE: Negative for: Heat or cold intolerance, Excessive sweating, Frequent urination, Frequent thirst PHYSICAL EXAMINATION: VIDEO EXAM: (if completed, performed via video enabled technology) No exam performed Component Latest Ref Rng & Units 05/26/2022 07/30/2022 08/06/2022 Protein, Total 6.3 - 8.0 g/dL 7.7 Albumin 3.9 - 4.9 g/dL 4.8 Calcium 8.5 - 10.2 mg/dL 9.8 Bilirubin, Total 0.2 - 1.3 mg/dL 0.4 Alkaline Phosphatase 38 - 113 U/L 47 AST 14 - 40 U/L 30 ALT 10 - 54 U/L 29 Glucose 74 - 99 mg/dL 110 (H) BUN 9 - 24 mg/dL 18 Creatinine 0.73 - 1.22 mg/dL 0.85 Sodium 136 - 144 mmol/L 140 Potassium 3.7 - 5.1 mmol/L 3.9 Chloride 97 - 105 mmol/L 104 CO2 22 - 30 mmol/L 26 Anion Gap 9 - 18 mmol/L 10 eGFR >=60 mL/min/1.73m 89 WBC 3.70 - 11.00 k/uL 7.34 RBC 4.20 - 6.00 m/uL 4.86 Hemoglobin 13.0 - 17.0 g/dL 15.7 Hematocrit 39.0 - 51.0 % 45.7 MCV 80.0 - 100.0 fL 94.0 MCH 26.0 - 34.0 pg 32.3 MCHC 30.5 - 36.0 g/dL 34.4 RDW-CV 11.5 - 15.0 % 13.2 Platelet Count 150 - 400 k/uL 202 MPV 9.0 - 12.7 fL 9.1 Absolute nRBC <0.01 k/uL <0.01 Cholesterol, Total <200 mg/dL 114 Triglyceride <150 mg/dL 88 HDL Cholesterol >39 mg/dL 49 Non HDL Cholesterol <130 mg/dL 65 Fasting Time hrs 12 VLDL Cholesterol <30 mg/dL 18 TC:HDL Ratio <5.10 2.33 LDL Cholesterol <100 mg/dL 47 LDL:HDL Ratio <2.54 0.96 PT Sec <13.1 sec 24.6 (H) PT INR 0.9 - 1.3 2.6 (H) ASSESSMENT AND PLAN: Mr. Brooks is a 76 year old male with multi-site atherosclerotic disease -carotid, lower extremity arterial and presumed coronary along with recurrent venous thromboembolism here for follow-up. Patient continues to do well. Will not make any medication changes. From a PE perspective, he has an indication for nursing home anticoagulation. Regarding his history of PAD, Carotid Disease, presumed coronary disease - his BP is well controlled, LDL < 70. 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 Patient will follow up with me in 1 year. Anti-platelet: Aspirin Anti-thrombotic: Warfarin Lipid Management: Rosuvastatin 20mg Prior Interventions: CEA - 06/2019 Anti-Hypertensive Agents: Lisinopril HCTZ 10/6.25mg BID PLAN (Active Outpatient Problems): Hypertension Hyperlipidemia Peripheral Artery Disease Hyperlipidemia History of Pulmonary Embolism Anticoagulation Management Encounter I personally spent 40 minutes in total time involved in the management and care of this patient. Mj Dos Santos MD, MS, FACC, FSVM, RPPHILIPP [facility] Cardi[facility] [address], [place] [address] Appointments: (Cardiology); (Vascular Medicine) This note was dictated using a voice recognition software. Please excuse any inadvertent typographical/grammatical/syntax errors that may have escaped the final proofread. Please don't hesitate to contact my office for any clarification. documented in this encounter [facility] 08-06-2022 Miscellaneous Notes Patient notified, verbalized understanding. Kari Briones LPN Continue Coumadin dose. INR in 2 weeks. Last INR: INR 2.6 08/06/2022 Current dose of coumadin is: 7.5 mg WF, 10 mg all other days. Last date of dose change: 07-09-22. Previous INR (date and result): 3.7 07-30-22 Additional Clinical Information or narrative: yes: Patient reports he's been on a low carb diet for the last 2 mths. Reports BP has improved: 103/64 (66), 115/68 (75), 103/68 (68)- states he does not want pcp to decrease his lisinopril/hctz at this time- can discuss at next appt this month. No alcohol since 07-18-22. No recent AB , No ususual bleeding or bruising. No missed doses. documented in this encounter [facility] 07-30-2022 Miscellaneous Notes TC Patient, given below recommendation, [facility] Done. Kari Briones LPN Decrease Coumadin dose 7.5 mg on Wednesdays and Fridays. 10 mg on all other 5 days. INR in 1 week. Patient s identity has been confirmed by name and birthdate: Yes Call received from Pt at 11:21 AM to report a critical value for INR with a result of 3.7. Dr Hills 's nurse was notified of the result at 11:29 AM. Maribel Oden Lpn Last INR: INR Home CoaguChek 3.7 07/30/2022 Current dose of coumadin is: 10 mg daily. Last date of dose change: 07/09/22. Previous INR (date and result): 07/16/22 3.1 Additional Clinical Information or narrative: no Denies any change in medication,appetitive, ATBs,bruising, bleeding, missed doses and no alcohol x 2 weeks. Pt takes Vit D 5,000 units (this was a change from what he was taking) and also takes COQ10. Please advise pt. Leave a detailed message so pt does not need to call back. Maribel Oden LPN documented in this encounter [facility] 07-29-2022 Miscellaneous Notes Phoned patient and went over notes from Sara Baxter GRAIN SACKER with understanding. Patient plans to do Dr Martinez labs on 08/18, and Dr Dos Santos and Dr Martinez INR labs tomorrow. Okay for all labs tomorrow Sara Baxter APRN.CNP Patient asking pcp to reply today, b/c he is going in to get labs done tomorrow. Patient has appt with Dr. Jorgensen on 08/22. He has lab orders ordered to have completed prior to appt. (HGB A1C and BMP) Patient asking if okay to have labs completed on 07/30? He states he has other lab orders ordered by Dr. Dos Santos and would like to get them all drawn together on 07/30. Please call patient with reply. Thank you. documented in this encounter [facility] 07-16-2022 Miscellaneous Notes Pt called and is notified of providers results and instructions. Pt voices understanding. Scheduled Pt for lab appointment. Cyndy Whelan RN Continue Coumadin dose. INR in 2 weeks. Last INR: INR Home CoaguChek 3.1 07/16/2022 1030 am Current dose of coumadin is: 10 mg daily . Last date of dose change: 07/09/2022. Previous INR (date and result): 2.3 on 07/09/2022 Additional Clinical Information or narrative: no changes to diet, no antibiotics, no bleeding issues, no missed doses. He has not had any alcohol in 4 days, He did say he is eating a lot of irish foods and likes lots of hot sauce on his food. documented in this encounter [facility] 07-09-2022 Miscellaneous Notes Patient notified of results and provider's instructions. Patient verbalizes understanding. Kristina Youssef LPN Continue Coumadin dose 10 mg daily. INR in 1 week. Last INR: INR Home CoaguChek 2.3 07/09/2022 Current dose of coumadin is: 5 mg on Wed, 10 mg all other days. Last date of dose change: 07/02/22. Previous INR (date and result): 3.9 Additional Clinical Information or narrative: no documented in this encounter [facility] 07-02-2022 Miscellaneous Notes Pt called and is notified of providers message and instructions. Pt voices understanding. Cyndy Whelan RN Take Coumadin 5 mg daily for today only. Tomorrow resume 10 mg daily. INR in 1 week. Last INR: INR Home CoaguChek 3.9 07/02/2022 Current dose of coumadin is: 10 mg every day. Last date of dose change: 05/08/22. Previous INR (date and result): 2.1, 06/18/22. Additional Clinical Information or narrative: yes: Pt states he may have double dosed himself on Thursday and taken 20 mg instead of 10 mg, but he isn't 100% sure. Pt denies diet changes, except he has been eating more irish, denies alcohol consumption, has not been on any antibiotics, no unusual bleeding or bruising. documented in this encounter [facility] 06-18-2022 Miscellaneous Notes Patient notified of below recommendation, verbalized understanding. Anticoag Tracker updated. Kari Briones LPN Continue Coumadin dose. INR in 2 weeks. Patient calls to answer Anticoagulation Questions. Current INR: 2.1 Current dose of Coumadin: Coumadin 10 mg daily. No unusual bleeding or bruising. No recent antibiotics. No missed doses. No diet changes or alcohol. Please review and advise, Antoinette Meadows RN documented in this encounter [facility] 06-17-2022 Miscellaneous Notes Last Office Visit: 06/02/2022 Future Office Visit: 08/22/2022 Requested Prescriptions Pending Prescriptions Disp Refills potassium chloride (KLOR-CON 10) 10 mEq tablet 180 tablet 3 Sig: Take 1 tablet by mouth twice daily. Date of Last Labs: 05/26/2022 Component Latest Ref Rng & Units 05/26/2022 Potassium 3.7 - 5.1 mmol/L 4.3 documented in this encounter [facility] 06-09-2022 Miscellaneous Notes Pt called and is notified of providers message and instructions. Pt voices understanding. Cyndy Whelan RN He can proceed with holding coumadin as he stated, as he is concerned about bleeding. He's been on CoQ10 for a while so I don't expect any major change in his coumadin dosing. Patient calls and states that he is having a bridge put on his bottom teeth on 06/12/2022. Dentist had told him that he did not have to go off his coumadin but patient does not trust this. Patient states that he is going to go off his coumadin on Thursday and Go back on Coumadin after procedure on . Patient reports that he will then take 15 mg Coumadin x 3 days then he will take 10 mg going forward. Patient will have his INR checked on Thursday06/11/2022 prior to procedure and then will recheck a week from . Patient states that he has been taking coenzyme Q 10. Patient states that he had read from a very reputable source that it acts the same way as coumadin with blood thinning. Patient also reports that his blood pressure today was 119/67 Pulse 74. Please review and advise, Tammie Munguia RN documented in this encounter [facility] 06-04-2022 Miscellaneous Notes Patient called back regarding his 05/21 phone call question asking if he can have an ECHO scheduled when he comes in on 08/08. He said it has been a year since he has had one and his PCP was asking if he should have one as well. He would like for someone to call him back regarding if he should have the ECHO and if it can be scheduled on the same day. Julieth Teran Leigha Todd Orta called requesting an order for Echo to be done prior to 1 [address] follow up with Dr. Dos Santos. Patient would like to get the Echo done in [facility]. Call back number: [phone] Thank you documented in this encounter [facility] 06-03-2022 Miscellaneous Notes Patient notified and verbalized understanding. Celia Sanders LPN 2.8 Is within normal range of 2 to 3. Cont the same dose and recheck in a weeks Regards, Sherry Rodrigues MD Pt calling to answer anticoagulation protocol questions for today's INR result of 2.8: States no recent antibiotic use No unusual bleeding/bruising No diet changes No missed doses of coumadin Pt states he has been taking 10mg Coumadin daily. Please advise. Thank you. documented in this encounter [facility] 06-02-2022 History of Presen t illness Narrative Alex Brooks is a 76 year old male here for a Medicare Subsequent Annual Wellness Visit Health Risk Assessment In general, health is: Good Concerns with balance: More than half the days Concerns with teeth or dentures: Not at all Concerns with sexual function: Not at all [place] anxious, stressed, angry, irritable, lonely, isolated, or had thoughts of hurting themself: Not at all Has little interest or pleasure in doing things: Not at all Bothered by feeling down, depressed, or hopeless: Not at all Needs help with grocery shopping, cooking, housework, bathing, grooming, dressing, eating, sitting or standing, walking, using the toilet, handling finances, taking medications, using the telephone, or driving: No Following safety precautions in the home environment and vehicle: removed throw rugs from floors, installed grab bars in the bathroom, handrails in stairwells, having adequate lighting, wearing seatbelt at all times?: No Smokes cigarettes, vapes, or chew tobacco: No Eats healthy foods including fruits, vegetables, whole grains, and fiber-rich foods: Several days Number of days per week engages in exercise: 1 day Average alcohol consumption: 2-3 times a week Current Providers Specialists: I have reviewed specialist-related care of the patient in the medical record. Current care team: Patient Care Team: Franc Hills MD as PCP - General (Internal Medicine) Mckinley Jaramillo DO as Consulting (Hematology/Oncology) Mj Dos Santos MD Cardiology. Kvng Mcnamara MD, ophthalmology. Harry Nuñez, optometry. Iglesia Ansari MD, vascular surgery. Medical/Family history review Reviewed and updated problem list, medical/surgical/family/social history, medications, and allergies. Opioid use review Patient is currently using opioids. Prescribed oxycodone HCl/acetaminophen (last 90 days) Does patient have risk factors for opioid abuse? Yes Pain overview Current pain concerns and treatment plan reviewed. Patient stable on current treatment plan. Depression screening Depression Screening PHQ-2 Score PHQ-9 Score 11/13/2021 0 - Depression screening tool completed and reviewed. Based on score and interview, patient is not at risk for depression. Screening tool discussed with patient, and I recommended no further intervention at this time. Cognitive screening Mini Cog Score: 5 Cognitive screening reviewed and no further action needed (score 3-5) Functional Observation Was the patient's timed Up & Go test unsteady or ? 12 seconds? No Advance Care Planning End of Life planning discussed, including patient's advanced directive wishes: Yes Measurements BP 147/78 Pulse 61 Temp (Src) 96.9 (Temporal) Resp 20 Ht 6' 0 (1.83m) Wt 185 lb (83.9kg) BMI 25.08 kg/(m^2). Visual acuity (required for Welcome to Medicare): follows with optometry/ophthalmology and Right: 20/50 Left: 20/ 50 Both: 20/30 Hearing Evaluation: within normal limits Assessment/Plan - Counseled on healthy diet and regular exercise - Fall avoidance - Depression screening - Alcohol misuse screening and counseling - Opioid prescription and treatment plan review This note was created using [employer]. Subjective Patient presents with: Medicare Wellness Exam Recheck Alex Brooks is a 76 year old male. His hypertension was labile. He followed with cardiology at [facility], but was considering transferring to [facility] cardiology here He is on Percocet as needed for chronic back pain. His opioid use was stable, and consistent. Adapted from CDC guidelines: Opioids can provide short term benefits for moderate to severe pain. Scientific evidence is lacking for benefits to treat chronic pain. Before prescribing or adjusting dose 1. Assess PAIN & FUNCTION with validated pain scale. (PEG scale where 30% improvement from baseline is clinically significant) Q1: What number from 0-10 best describes your PAIN in the past week? (0=no pain, 10=worst you can imagine) Answer: 5 Q2: What number from 0-10 best describes how, during the past week, pain has interfered with your ENJOYMENT OF LIFE? (0=not at all, 10=complete interference) Answer: 4 Q3: What number from 0-10 best describes how, during the past week, pain has interfered with your GENERAL ACTIVITY? (0=not at all, 10=complete interference) Answer: 4 Total score=13 Previous score= 2. Consider if NON OPIOID therapies are appropriate. (NSAIDs, TCAs, SNRI, anti-convulsants, exercise or physical therapy, cognitive behavioral therapy) Yes. No NSAID due to warfarin. Anticonvulsants were not tolerated in the past. PT, pain management injections previously completed. 3. Talk about the TREATMENT PLAN. - Annual OPIOID AGREEMENT current. Yes. - Realistic goals for pain and function discussed. Yes. Specific goals: ADL - Benefits, side effects, and risks (e.g. Addiction, overdose) discussed. Yes. - Criteria for stopping or continuing opioid discussed. Yes. - Criteria for regular assessment every 2 to <3 months discussed. Yes. - Referral to specialist(s); 50 MED or more. N/A. - 4. Evaluate RISK of HARM or MISUSE. - Risk factors reviewed. Yes - OARRS checked. Yes - UDS ordered. No - Medication interactions checked. Yes. - Concern for OPIOID USE DISORDER, aberrant behavior. No. Review of Systems Constitutional: Negative. HENT: Negative. Respiratory: Negative for chest tightness and shortness of breath. Cardiovascular: Negative for chest pain, palpitations and leg swelling. Gastrointestinal: Negative for abdominal pain and constipation. Genitourinary: Negative for difficulty urinating. Musculoskeletal: Positive for back pain, gait problem and neck pain. Neurological: Positive for numbness. Negative for dizziness and headaches. Psychiatric/Behavioral: Negative for dysphoric mood and sleep disturbance. The patient is not nervous/anxious. 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 Drug use: Yes Types: Marijuana Current Outpatient Medications Medication Sig lisinopril-hydroCHLOROthiazide (PRINZIDE,ZESTORETIC) 20-12.5 mg per tablet Take 2 tablets by mouth once daily. potassium chloride (KLOR-CON 10) 10 mEq tablet Take 1 tablet by mouth twice daily. oxyCODONE-acetaminophen (PERCOCET) 5-325 mg tablet Take 1 tablet by mouth every 4 hours as needed for pain for up to 7 days. LORazepam (ATIVAN) 2 mg tab Take 1 tablet by mouth at bedtime as needed (insomnia) for up to 180 days. Do not start before March 20, 2022. ascorbic acid (VITAMIN C ORAL) Take 2,000 Units by mouth once daily. Cholecalciferol, Vitamin D3, 75 mcg (3,000 unit) tab Take by mouth. aspirin 81 mg cap Take by mouth. hydrocortisone 2.5 % cream Seldom rosuvastatin (CRESTOR) 20 mg tablet Take 1 tablet by mouth once daily. warfarin (COUMADIN) 5 mg tablet Take 2 tabs daily Mondays thru Fridays. Take 1&1/2 tablets Saturdays and Sundays. (Patient taking differently: Take 2 tabs daily) vitamin B complex (B COMPLEX 1 ORAL) magnesium oxide 400 mg magnesium cap Take 1 capsule by mouth once daily. (Patient taking differently: Take 400 mg by mouth twice daily.) SAW PALMETTO ORAL Take 400 mg by mouth twice daily. coenzyme Q10 (COENZYME Q-10) 100 mg cap capsule Take 400 mg by mouth once daily. Cyanocobalamin 2,500 mcg subl Dissolve under the tongue twice daily. calcium, elemental, tab Take 600 mg by mouth twice daily. multivitamin (SOFYA MULTIVITAMIN) tablet Take 1 tablet by mouth once daily. famotidine (PEPCID) 40 mg tablet Take 1 tablet by mouth once daily as needed. No current facility-administered medications for this visit. Objective BP 147/78 (BP Site: Left Arm, BP Position: Sitting, BP Cuff Size: Large Adult) Pulse 61 Temp 36.1 C (96.9 F) (Temporal) Resp 20 Ht 182.9 cm (6') Wt 83.9 kg (185 lb) BMI 25.09 kg/m Physical Exam Constitutional: General: He is not in acute distress. Appearance: He is not ill-appearing. HENT: Head: Normocephalic. Cardiovascular: Rate and Rhythm: Normal rate and regular rhythm. Heart sounds: No murmur heard. No gallop. Pulmonary: Effort: Pulmonary effort is normal. Breath sounds: Normal breath sounds. Musculoskeletal: Cervical back: No deformity or tenderness. Decreased range of motion. Lumbar back: No spasms, tenderness or bony tenderness. Decreased range of motion. Negative right straight leg raise test and negative left straight leg raise test. Right lower leg: No edema. Left lower leg: No edema. Neurological: General: No focal deficit present. Mental Status: He is alert. Motor: Atrophy present. Gait: Gait abnormal. Psychiatric: Mood and Affect: Mood normal. Behavior: Behavior normal. Component Latest Ref Rng & Units 05/26/2022 Protein, Total 6.3 - 8.0 g/dL 7.1 Albumin 3.9 - 4.9 g/dL 4.2 Calcium 8.5 - 10.2 mg/dL 8.8 Bilirubin, Total 0.2 - 1.3 mg/dL 0.3 Alkaline Phosphatase 38 - 113 U/L 42 AST 14 - 40 U/L 25 ALT 10 - 54 U/L 22 Glucose 74 - 99 mg/dL 118 (H) BUN 9 - 24 mg/dL 26 (H) Creatinine 0.73 - 1.22 mg/dL 0.78 Sodium 136 - 144 mmol/L 135 (L) Potassium 3.7 - 5.1 mmol/L 4.3 Chloride 97 - 105 mmol/L 104 CO2 22 - 30 mmol/L 22 Anion Gap 9 - 18 mmol/L 9 eGFR >=60 mL/min/1.73m 91 WBC 3.70 - 11.00 k/uL 7.34 RBC 4.20 - 6.00 m/uL 4.86 Hemoglobin 13.0 - 17.0 g/dL 15.7 Hematocrit 39.0 - 51.0 % 45.7 MCV 80.0 - 100.0 fL 94.0 MCH 26.0 - 34.0 pg 32.3 MCHC 30.5 - 36.0 g/dL 34.4 RDW-CV 11.5 - 15.0 % 13.2 Platelet Count 150 - 400 k/uL 202 MPV 9.0 - 12.7 fL 9.1 Absolute nRBC <0.01 k/uL <0.01 Cholesterol, Total <200 mg/dL 123 Triglyceride <150 mg/dL 118 HDL Cholesterol >39 mg/dL 52 Non HDL Cholesterol <130 mg/dL 71 Fasting Time hrs 13 VLDL Cholesterol <30 mg/dL 24 TC:HDL Ratio <5.10 2.37 LDL Cholesterol <100 mg/dL 47 LDL:HDL Ratio <2.54 0.90 PSA Screening <2.60 ng/mL 0.61 Assessment and Plan 1. Medicare annual wellness visit, subsequent - ICD9: V70.0, ICD10: Z00.00 (primary diagnosis) See wellness note. 2. PAD (peripheral artery disease) (HCC) - ICD9: 443.9, ICD10: I73.9 Stable. 3. Chronic low back pain without sciatica, unspecified back pain laterality - ICD9: 724.2, 338.29, ICD10: M54.50, G89.29 Stable opioid use. See pain assessment. 4. Primary hypertension - ICD9: 401.9, ICD10: I10 - fair control - Continue current medication(s) - Reviewed risks of HTN and principles of treatment - Goal of BP <130/80 5. Mixed hyperlipidemia - ICD9: 272.2, ICD10: E78.2 - good control - Continue current medication. 6. 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) - ICD9: 415.19, ICD10: I26.99 On chronic warfarin. 7. Impaired fasting glucose - ICD9: 790.21, ICD10: R73.01 Low carb diet recommended. - BASIC METABOLIC PNL - HGB A1C Franc Hills MD documented in this encounter [facility] 06-02-2022 Miscellaneous Notes MARITZA: 02/03/2022 Last refill: 03/18/2022 QTY: 42 Refills: 0 documented in this encounter [facility] 06-02-2022 Miscellaneous Notes MARITZA: 02/03/2022 Last refill: 02/19/2021 QTY: 90 Refills: 1 Patient's request for medication is as follows: Requested Prescriptions Pending Prescriptions Disp Refills famotidine (PEPCID) 40 mg tablet 90 tablet 1 Sig: Take 1 tablet by mouth once daily as needed. Please approve the above prescription(s) to electronically send to pharmacy. Joce Schmid Ma documented in this encounter [facility] 05-26-2022 Miscellaneous Notes Patient is calling because he would like to request having an ECHO when he goes in on 06/04, if possible, for his labs at [facility] (if same date doesn't work, check with patient for a different date0. He said it's been a year since his last one and he would like to be checked again. I told him we would check with Dr. Dos Santos and Raiza would call him back. Julieth Teran documented in this encounter [facility] 05-22-2022 Miscellaneous Notes Spoke with pt and information listed below given. Pt verbalizes understanding. Maribel Oden LPN Continue Coumadin dose 10 mg daily. INR in 2 weeks. Last INR: INR Home CoaguChek 2.4 05/22/2022 Current dose of coumadin is: 10 mg daily. Last date of dose change: 05/08/22 Previous INR (date and result): 05/15/22 2.3 Additional Clinical Information or narrative: no, nothing to report denies any bleeding, cruising, change in medication. Last glass of wine was 5 days ago. Please advise pt. Leave message and do not ask pt to call back to confirm per pt. documented in this encounter [facility] 05-21-2022 Miscellaneous Notes Patient calls and states that he was talking to vascular and they had told him that there is not lab orders placed before patient's appointment on 06/02/2022. Advised that there are labs placed and labs are part of lab appointment that patient scheduled on 05/26/2022. Patient voiced understanding. Tammie Munguia RN documented in this encounter [facility] 05-08-2022 Miscellaneous Notes Patient called back and said he figured it out. He will not need call back about this. He will do as he told Maribel below restarting on 05/09/2022. Pt called back and wants to double check if he is to start back on the Coumadin today or tomorrow. Please advise pt. Okay to leave a message and pt will not call back he checks his messages often. Maribel Oden LPN Last INR: INR Home CoaguChek 1.0 05/08/2022 Current dose of coumadin is:off coumadin 5 days. Last date of dose change: 04/11/22. Previous INR (date and result): 04/23/22 2.8 Additional Clinical Information or narrative: yes: Pt has a dental apt today and has been off his coumadin x 5 days. Pt will start back on coumadin tomorrow 05-09-22. Pt reports he has been instructed to start with 15 mg x 3 days then back to 10 mg daily and recheck his coumadin level on 05-14-22. Maribel Oden LPN documented in this encounter [facility] 04-24-2022 Miscellaneous Notes Patient notified of below dosage recommendation, read back. Kari Briones LPN Resume Coumadin b. 3 at 15 mg daily until May. 5. On May. 6 start usual 10 mg daily dose. INR on May.14. Patient reports he is having a dental procedure, routine exam, x-rays, and cleaning on 05-08-22. Reports he will be off of coumadin for 5 days prior. Will do INR test on 05-07-22. Asking how many days after procedure does he go back on coumadin? States he is asking pcp b/c this is a brand new dentist, very young, and patient prefers to get this answer from pcp. How many days after procedure should he test INR? Please phone patient with reply. documented in this encounter [facility] 04-24-2022 Miscellaneous Notes Patient calling back he will have INR done on May 07, said it will be low since will be off coumadin for 5 days for teeth cleaning. Patient will have INR done again on May 14 back on coumadin. Patient notified, verbalized understanding. Anticoag Tracker updated. Kari Briones LPN Continue Coumadin dose. INR in 2 weeks. Last INR: INR 2.8 04/23/2022 Current dose of coumadin is: 10 mg daily. Last date of dose change: 04-11-22. Previous INR (date and result): 04-16-22 2.0 Additional Clinical Information or narrative: yes: No missed doses, no recent AB, no unusual bleeding or bruising, no diet changes, no alcohol in 4-5 days. documented in this encounter [facility] 04-16-2022 Miscellaneous Notes Patient notified, tracker updated. Continue Coumadin dose. 10 mg daily. INR in 1 week. Last INR: INR Home CoaguChek 2.0 04/16/2022 Current dose of coumadin is: 10 mg daily. He was asked to hold Coumadin 04/11/22. Last date of dose change: 04/11/22. Previous INR (date and result): 04/11/22 4.1 Additional Clinical Information or narrative: yes: see message below Pt called to report he just did his INR today and wanted to get information needed for this. *Taking Coumadin 10 mg daily. He was asked to stop Coumadin 1 day last time he had his INR done. *No missed doses *No wine x 4 days *Pt taking Mucinex for phelgm in his throat Maribel Oden LPN documented in this encounter [facility] 04-16-2022 Miscellaneous Notes Patient's request for medication is as follows Requested Prescriptions Signed Prescriptions Disp Refills lisinopril-hydroCHLOROthiazide (PRINZIDE,ZESTORETIC) 20-12.5 mg per tablet 180 tablet 1 Sig: Take 2 tablets by mouth once daily. Franc Hills MD Pt calling to check on status of request to increase his lisinopril to twice a day. Please advise patient. Thank you. documented in this encounter [facility] 04-11-2022 History of Presen t illness Narrative PCP ADDRESSED IN PHONE ENCOUNTER POT CALLED TOO. Hold coumadin today only. Resume coumadin 10 mg daily after holding for one day. INR in 3 days. patient had inr completed at [facility] patients inr is 4.1 (patients inr range is 2.0-3.0) patient is currently taking 10mg daily patients last dose change unknown patient has had no changes in medication and no missed doses and no change in diet FYI- patient has been instructed to hold coumadin until contact by the office Advised patient that they would be contacted regarding medication dose and when to follow up after information is reviewed by provider. After provider review please contact the patient with information and schedule follow up appointment with coumadin clinic. FYI- patient has been scheduled for a 1 week follow up inr on 04/18/22 documented in this encounter [facility] 04-11-2022 Miscellaneous Notes Patient notified of results and provider's instructions. Patient verbalizes understanding. Kristina Youssef LPN Hold coumadin today only. Resume coumadin 10 mg daily after holding for one day. INR in 3 days. Pt called in and wanted to let provider know he may have taken a double dose either on Thu or Thu. He states he normally turns the bottle upside down after he has taken it, and one day he wasn't osei if he did or not. He states that is the only thing he could think of that could account for his INR. Patient wants pcp to know, he had his INR draw today at the coumadin clinic and it was 4.1. States he has no idea why- reports he has not had any alcohol for 5-6 days, no diet changes (ate a large gear finisher salad last night), no recent AB's, no unusual bleeding or bruising. Does take a daily low dose asa. documented in this encounter [facility] 04-08-2022 Miscellaneous Notes Patient calling to ensure his [facility] message to PCP is understood. He states he does not need his potassium script refilled at this time. He is only requesting his potasssium CL ER be changed to [facility] for future orders due to low cost. Thank you. documented in this encounter [facility] 04-04-2022 Miscellaneous Notes Notified patient. Okay. Patient called back in and requesting pended refill request be sent as soon as possible, today. He states he will be changing insurances 04/06/22 and would like to get this refill sent under current insurance due to cost savings. Thank you. Last Office Visit: 02/03/2022 Future Office Visit: 06/02/2022 Requested Prescriptions Pending Prescriptions Disp Refills potassium chloride SR (MICRO-K) 10 mEq CR capsule 180 capsule 1 Sig: Take 1 capsule by mouth twice daily. Date of Last Labs: 11/13/2021 documented in this encounter [facility] 04-02-2022 Miscellaneous Notes Patient notified of dosage decrease, verbalized understanding. Anticoag Tracker updated Scheduled Patient in Coumadin Clinic Kari Briones LPN Decrease Coumadin dose. 10 mg daily. INR in 1 week. Last INR: 3.2 04/01/2022 Current dose of coumadin is: 10 mg on ,,,, and . 15 mg on , , and . Patient's coumadin was held 5 days prior to patient's colonoscopy patient had done on 03/24/2022. Previous INR (date and result): 03/24/2022 1.1; Patient's coumadin was being held 5 days prior to procedure Additional Clinical Information or narrative: no Patient states that he has had no changes in diet and medications. Patient states that he did have a glass of wine on 03/29/2022. Patient has no bleeding or bruising noted. Please review and advise, Tammie Munguia RN documented in this encounter [facility] 03-20-2022 Miscellaneous Notes Patient called and wanted to let provider know that the reason why he had cancelled INR on Thursday was because he is having it done at [facility] instead. Tammie Munguia RN documented in this encounter [facility] 03-19-2022 Miscellaneous Notes Addressed in phone encounter Sara Baxter APRN.KAYLA documented in this encounter [facility] 03-18-2022 Miscellaneous Notes Pt notified prescription was sent to the pharmacy. Maribel Oden LPN PDMP website checked and validated. All prescriptions have been APPROPRIATELY filled. No suspicious activity was identified. 03/18/2022 by Franc Hills MD See duplicate messages, discussion about options, patient responses. Percocet refilled. Follow up for chronic pain, chronic opioid use . Patient calls upset that the Percocet has not been sent in and Lyrica was offered. Patient states that his back pain is not due to nerve pain. Back pain is due to bulging disc, stenosis, and arthritis. Patient states that he had talked to pharmacist and was told that Lyrica will not help the kind of pain that he has. Patient upset because pain management had prescribed him the percocet and said it was ok and can't understand why PCP won't prescribed. Please review and advise, Tammie Munguia RN Message sent to Patient: Rich this is Dr. Hills's response. Please let our office know. We can try LYRICA instead. Lyrica is a medication used for neuralgia and seizures. It is not an opoid. I can also refer him to pain management. We can try LYRICA instead. Lyrica is a medication used for neuralgia and seizures. It is not an opoid. I can also refer him to pain management. Patient calls and is asking about refill for Percocet. Patient states that he only has 2 left. Patient asking if provider is not planning on refilling Percocet, what does provider suggest taking? Patient states that tylenol does not help with his pain. Patient also states that he is going in for colonoscopy at [facility] with Dr. Rosenberg on Thursday03/24/2022. Patient reports that he is going off of Coumadin on and coming in to recheck INR before procedure on Thursday at 9 am. Please review and advise, Tammie Munguia RN Patient calling asking for Percocet refill, he has 4 pills left. Patient said right now he is having back pain problem. He is trying to take one daily.Patient said if PCP did not want to do the rx, can he suggest something else? Patient said he can not take muscle relaxer or gabapentin rx. Pending rx to file Please advise Patient's request for medication is as follows Requested Prescriptions Signed Prescriptions Disp Refills LORazepam (ATIVAN) 2 mg tab 90 tablet 1 Sig: Take 1 tablet by mouth at bedtime as needed (insomnia) for up to 180 days. Do not start before March 20, 2022. Authorizing Provider: FRANC HILLS Refused Prescriptions Disp Refills oxyCODONE-acetaminophen (PERCOCET) 5-325 mg tablet 42 tablet 0 Sig: Take 1 tablet by mouth every 4 hours as needed for pain for up to 7 days. Refused By: FRANC HILLS Reason for Refusal: A Refill not appropriate In another message, he indicated he still had Percocet 8-10 tablets. . Franc Hills MD Pt called in asking about medication. Let Pt know that they were in and someone would call him as soon as they were put through. Patient has been identified by name and date of : Yes Patient phones for refill(s): Requested Prescriptions Pending Prescriptions Disp Refills oxyCODONE-acetaminophen (PERCOCET) 5-325 mg tablet 42 tablet 0 Sig: Take 1 tablet by mouth every 4 hours as needed for pain for up to 7 days. LORazepam (ATIVAN) 2 mg tab 90 tablet 1 Sig: Take 1 tablet by mouth at bedtime as needed (insomnia) for up to 180 days. Date of last office visit in primary care: 02/03/2022, has appt 06/02/2022 Last 2 Encounter Wt Readings: Date: Wt: 02/03/2022 83 kg (183 lb) 11/13/2021 81.2 kg (179 lb) Previous labs/tests for medication: Not applicable Please advise. Thank you. Tala Torres LPN Patient requesting PCP to advise. documented in this encounter [facility] 03-18-2022 Miscellaneous Notes Notes, discussions noted. Mykel declined. Pt calls to report he does not really want to use [facility] because he does not want to pay for using [facility]. Pt calls stating there seems to be some miscommunication in regards to why pt is taking percocet. Pt reports he has low back muscle pain. Pt reports he does not have nerve pain. Pt reports he had 3-[address] Leal that took care of that. Pt reports about 2.5 yrs ago Sara Older, DELIVERY CLERK reduced percocet dose from 10 mg to 5 mg and reduced # of pills. Pt reports if percocet is a problem he doesn't understand why when he broke his toe a year or two ago that Dr. Martinez asked pt if pt wanted percocet increased back to 10 mg. Pt reports at that time he said, No. Pt reports he does not need Lyrica for nerve pain because that is not what he has. Pt reports he does not abuse taking percocet and does not like he is made to feel like he is. Pt reports if dr does not want him taking percocet then he would like something like percocet for the pain not something that doesn't work for the type of pain he has. Brandi Lambert LPN documented in this encounter [facility] 03-13-2022 Miscellaneous Notes Noted. Pt calling regarding the tox screen results. Pt wants pcp to know that he took a percocet around 10am d/t back pain & had the tox screen at 3:30 yesterday. Pt wants pcp to know that is why his lab test is showing a preliminary positive. Pt states he has 8-10 percocet pills left from the 42 he was prescribed on 01/16/22. Corrina Velarde LPN documented in this encounter [facility] 03-06-2022 History of Presen t illness Narrative Ok. patient had inr completed at [facility] patients inr is 2.8 (patients inr range is 2.0-3.0) patient is currently taking 10mg daily patients last dose change unknown patient has had no changes in medication and no missed doses and no change in diet Advised patient to continue on the same dose(s) and that they would only be contacted regarding dosage and follow up instructions after review with provider, if a change is needed. Written instructions given and patient verbalized understanding. Presently scheduled in 2 weeks (03/20/22 - per pt request) for follow up INR. documented in this encounter [facility] 02-18-2022 History of Presen t illness Narrative per dr edwards she agrees with information patient had inr completed at [facility] patients inr is 2.6 (patients inr range is 2.0-3.0) patient is currently taking 10mg daily patients last dose change unknown patient has had no changes in medication and no missed doses and no change in diet Advised patient to continue on the same dose(s) and that they would only be contacted regarding dosage and follow up instructions after review with provider, if a change is needed. Written instructions given and patient verbalized understanding. Presently scheduled in 2 weeks (per patient request and he will call to schedule) for follow up INR. documented in this encounter [facility] 02-18-2022 Miscellaneous Notes Patient is a new patient to the [facility] and we are needing new standing orders for testing. Orders have been pended for review and file if able. CC only needs called if orders cannot be filed. Thanks documented in this encounter [facility] 02-11-2022 Miscellaneous Notes Pt called in and spoke to a triage nurse. He is requesting to change back to Dr. Hills as pcp. Reviewed with Dr. Hills. He is fine with this. Pcp field change back to Dr. Hills. documented in this encounter [facility] 02-03-2022 Miscellaneous Notes Pt called back and he has the instructions and knows what to do. Maribel Oden LPN Patient calling with question about AVS showing No Coumadin 01/12-/01/17. After reviewing patient's record, it appears Coumadin was held during this time for tooth extraction. Left message for patient to call back. Molly Ann RN documented in this encounter [facility] 02-03-2022 History of Presen t illness Narrative SUBJECTIVE: DEPRESSION ASSESSMENT Never done HPI Alex Brooks is a 76 year old male. 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 Mj Dos Santos MD, cardiology 08/2021 Dr Rosenberg colonoscopy 03/24/2022 [facility]. Presents for transfer to Mani Edwards MD. BPH / LUTS: without current complaints. GERD: not currently bothersome PE/chronic OAC: Bleeding difficulties: none reported Neuropathy: feet and ankles, states previous treatments have not helped much States wearing bilateral FOs for foot drop. Chronic back aguila, has seen Dr Orozco for this, no prior surgery reported. Notes occasional use of percocet for back pain, has been effective, no AEs. ANDRÉS s/e CE: Taking statin HTN: Without report ofheadache, chest pain, palpitations, dyspnea, peripheral edema, orthopnea, fatigue, and PND.Last 3 Encounter BP Readings: Date: BP: 11/13/2021 104/54 11/12/2021 134/80 10/16/2021 139/78 Hyperlipidemia. His most recent lipid panels are: Cholesterol, Total (mg/dL) Date Value 11/01/2021 120 10/24/2020 131 04/19/2020 147 HDL Cholesterol (mg/dL) Date Value 11/01/2021 50 10/24/2020 51 04/19/2020 45 LDL Cholesterol (mg/dL) Date Value 11/01/2021 52 10/24/2020 54 04/19/2020 61 Triglyceride (mg/dL) Date Value 11/01/2021 90 10/24/2020 129 04/19/2020 205 Creatinine Date Value Ref Range Status 11/01/2021 0.76 0.73 - 1.22 mg/dL Final 05/07/2021 0.83 0.73 - 1.22 mg/dL Final 04/16/2021 0.91 0.73 - 1.22 mg/dL Final 04/02/2021 1.21 0.73 - 1.22 mg/dL Final Review of Systems Constitutional: Negative. Musculoskeletal: Positive for back pain and gait problem. Objective BP 126/74 Resp 16 Wt 83 kg (183 lb) BMI 24.14 kg/m Physical Exam Vitals and nursing note reviewed. Constitutional: Appearance: Normal appearance. HENT: Head: Normocephalic and atraumatic. Eyes: Conjunctiva/sclera: Conjunctivae normal. Neck: Thyroid: No thyromegaly. Vascular: Normal carotid pulses. No JVD. Cardiovascular: Rate and Rhythm: Normal rate and regular rhythm. Heart sounds: Normal heart sounds. Pulmonary: Effort: Pulmonary effort is normal. Breath sounds: Normal breath sounds. Abdominal: General: Bowel sounds are normal. Palpations: Abdomen is soft. Musculoskeletal: Right lower leg: No edema. Left lower leg: No edema. Skin: General: Skin is warm and dry. Neurological: Mental Status: He is alert. Mental status is at baseline. ALLERGIES Allergen Reactions Coumadin [Warfarin] Rash Patient reports a rash when patient is on coumadin and any antibiotic is prescribed Keflex [Cephalexin] Rash ascorbic acid (VITAMIN C ORAL) Take 2,000 Units by mouth once daily. Cholecalciferol, Vitamin D3, 75 mcg (3,000 unit) tab Take by mouth. aspirin 81 mg cap Take by mouth. hydrocortisone 2.5 % cream Seldom [START ON 02/13/2022] rosuvastatin (CRESTOR) 20 mg tablet Take 1 tablet by mouth once daily. warfarin (COUMADIN) 5 mg tablet Take 2 tabs daily Mondays thru Fridays. Take 1&1/2 tablets Saturdays and Sundays. (Patient taking differently: Take 2 tabs daily) potassium chloride SR (MICRO-K) 10 mEq CR capsule Take 1 capsule by mouth twice daily. LORazepam (ATIVAN) 2 mg tab Take 1 tablet by mouth at bedtime as needed (insomnia) for up to 180 days. Do not start before September 21, 2021. lisinopril-hydroCHLOROthiazide (PRINZIDE,ZESTORETIC) 20-12.5 mg per tablet Take 1 tablet by mouth once daily. vitamin B complex (B COMPLEX 1 ORAL) famotidine (PEPCID) 40 mg tablet Take 1 tablet by mouth once daily as needed. magnesium oxide 400 mg magnesium cap Take 1 capsule by mouth once daily. (Patient taking differently: Take 400 mg by mouth twice daily.) SAW PALMETTO ORAL Take 400 mg by mouth twice daily. coenzyme Q10 (COENZYME Q-10) 100 mg cap capsule Take 400 mg by mouth once daily. Cyanocobalamin 2,500 mcg subl Dissolve under the tongue twice daily. calcium, elemental, tab Take 600 mg by mouth twice daily. multivitamin (SOFYA MULTIVITAMIN) tablet Take 1 tablet by mouth once daily. oxyCODONE-acetaminophen (PERCOCET) 5-325 mg tablet Take 1 tablet by mouth every 4 hours as needed for pain for up to 7 days. 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 Carotid stenosis, left 02/21/2019 s/p CEA Closed nondisplaced fracture of distal phalanx of right great toe 01/16/2021 Colonic polyp 11/29/2018 DDD (degenerative disc disease), lumbar 03/08/2014 Elevated prostate specific antigen (PSA) 09/15/2016 Esophageal reflux Fall at home 01/05/2018 Right Rib Fracture Hypertension Hypertrophy of prostate with urinary obstruction and other lower urinary tract symptoms (LUTS) 09/04/2008 With mild night-time symptoms, exam ok as of 09/2008 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 Related to sugar? -- see fasting glucose 2008; Impaired fasting glucose 10/11/2008 Under 110; See labs 10/12 INSOMNIA NOS 09/04/2008 Doing well with as-needed benzo at night Left bundle branch block 05/28/2010 Lumbago 02/23/2009 Lumbosacral spondylosis without myelopathy 08/07/2011 Lung disease [place]ever Macular hole left eye Mixed hyperlipidemia 10/05/2008 Neuropathy Nuclear sclerosis of right eye PE (pulmonary embolism) 09/04/2011 Peripheral vascular disease (HCC) Perirectal abscess 12/12/2008 Postconcussion syndrome 11/11/2011 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) 05/08/2014 Traumatic intracerebral hemorrhage 09/26/2011 Ureterolithiasis 05/07/2011 Social History Tobacco Use Smoking status: Former Packs/day: 1.00 Years: 20.00 Pack years: 20.00 Types: Cigarettes Quit date: 04/06/1980 Years since quittin.8 Smokeless tobacco: Never Vaping Use Vaping Use: Never used Substance Use Topics Alcohol use: Not Currently Alcohol/week: 37.5 standard drinks Types: 15 Glasses of Wine (5oz) per week Comment: CAGE negative. Drug use: Yes Types: Marijuana Component Latest Ref Rng & Units 11/01/2021 Protein, Total 6.3 - 8.0 g/dL 7.1 Albumin 3.9 - 4.9 g/dL 4.6 Calcium 8.5 - 10.2 mg/dL 9.2 Bilirubin, Total 0.2 - 1.3 mg/dL 0.5 Alkaline Phosphatase 38 - 113 U/L 50 AST 14 - 40 U/L 26 ALT 10 - 54 U/L 21 Glucose 74 - 99 mg/dL 101 (H) BUN 9 - 24 mg/dL 23 Creatinine 0.73 - 1.22 mg/dL 0.76 Sodium 136 - 144 mmol/L 137 Potassium 3.7 - 5.1 mmol/L 4.0 Chloride 97 - 105 mmol/L 107 (H) CO2 22 - 30 mmol/L 20 (L) Anion Gap 9 - 18 mmol/L 10 eGFR >=60 mL/min/1.73m 92 Cholesterol, Total <200 mg/dL 120 Triglyceride <150 mg/dL 90 HDL Cholesterol >39 mg/dL 50 Non HDL Cholesterol <130 mg/dL 70 Fasting Time hrs 12 VLDL Cholesterol <30 mg/dL 18 TC:HDL Ratio <5.10 2.40 LDL Cholesterol <100 mg/dL 52 LDL:HDL Ratio <2.54 1.04 Vitamin D 25 Hydroxy 31.0 - 80.0 ng/mL 58.7 ASSESSMENT/PLAN: 1. Primary hypertension - ICD9: 401.9, ICD10: I10 (primary diagnosis) - good control - Continue current medication(s) - Encouraged dietary sodium restriction/DASH diet - Recommended regular aerobic exercise. 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) - ICD9: 415.19, ICD10: I26.99 Continues on OAC, no bleeding difficulties. Without shortness of breath complaints today 4. Chronic low back pain without sciatica, unspecified back pain laterality - ICD9: 724.2, 338.29, ICD10: M54.50, G89.29 Intermittent use of percocet for back pain. States getting a refill for 100 pills would be less expensive than refills as ordered now. Will continue unchanged for now. - TOX SCREEN ROUT UR Bonnie Sharif, AUTISTIC TEACHER.KAI WHAKARURUHAU Medical Decision Making: Problems: Moderate: 2+ stable chronic illnesses Risk: Moderate: Drug management Medical Decision Making Level: 4 - Moderate documented in this encounter [facility] 02-01-2022 Miscellaneous Notes Patient notified. Continue Coumadin dose. Sundays 12.5 mg. Mondays thru Saturdays 10 mg. INR in 2 weeks. Patient calling, for dosage of coumadin. Please advise. Asking for a call and [employer] message. Last INR: 2.8 Current dose of coumadin is: 01/26/22 patient took 12.5 mg and then 10 mg all other days. Last date of dose change: 01/24/22. Previous INR (date and result): 01/24/22 2.4 Additional Clinical Information or narrative: no documented in this encounter [facility] 01-25-2022 Miscellaneous Notes Patient notified via mychart encounter where he inquired about INR Disregard previous coumadin order. Change Coumadin to 10 mg daily Mondays thru Saturdays; & 12.5 mg on Sundays. INR in 1 week. INR today 2.4. Please advise on patient's new instructions. Patient INR is still pending, please clarify below Continue Coumadin dose 12.5 mg daily. INR in 3 days. Patient calling and states he is aware that today's INR result is still pending. He is calling ahead of time to answer the anticoagulation questions. He states: -he has not had any unusual bleeding or bruising -no change in diet -was off coumadin for 7 days due to dental procedure and then restarted it on 01/20 at 12.5 mg daily. -had a few beers on 01/21 -was on Amoxicillin 500 mg for 7 days and ended it approx 01/14 Graciela Parker RN documented in this encounter [facility] 01-22-2022 Miscellaneous Notes Noted. Patient calling just to give a message to PCP. Patient said the only antibiotic he seems to be able to take and not effect his INR is Amoxicillin 875 mg. Patient has been taking a rx since end of December. He had his tooth extraction done. Patient said his next INR is due Wednesday 01/24. He said he did have a few beers last night, hoping that will not effect his INR results. documented in this encounter [facility] 01-16-2022 Miscellaneous Notes Pt having tooth extraction today. Maribel Oden LPN TC to patient - unable to reach. Line rings busy. Will try again later. He should still have tooth extraction. Follow instructions given to him previously concerning when to restart and have INR rechecked Sara Baxter APRN.CNP Patient calling and said his INR today is 1.0 he is concerned since his tooth extraction is scheduled for tomorrow at [address] Justice oral surgeon. Patient stopped coumadin Thursday 01/11. He is asking if he should still have the extraction or go back on his coumadin? Patient can cancel if notified before 6 pm today. Please advise documented in this encounter [facility] 01-15-2022 Miscellaneous Notes Patient calls and is notified of provider response. Patient voiced understanding. Tammie Munguia RN Generally, most surgeons are comfortable doing procedures if INR is < 2.0. The dental form sent does NOT require checking an INR before the procedure, but only instructions on holding coumadin. It should be on the dental form that Dr. Hills filled out and faxed last month. I don't have access to that form. I am not able to answer his question, this can wait until Dr. Hills is back in the office tomorrow morning. Sara Baxter APRN.CNP Pt calling back asking for an answer. Pt aware this has not been addressed yet. Maribel Oden LPN Pt asking what his INR needs to be to have the tooth extraction done (range). Pt states he has been eating a lot of brussels sprouts. He would like to be called on this today so he can let his dentist know tomorrow after he get his INR done. Maribel Oden LPN Patient phoned to let pcp know, he scheduled 2 appts with lab, one on Thu and one on , just in case the INR on Thu is too high. This is in preparation for his tooth extraction on . documented in this encounter [facility] 01-08-2022 Miscellaneous Notes Pt called and is notified of providers results and instructions. Pt voices understanding, he states he doesn't know if it worth trying to do the bridging at this point in time. Cyndy Whelan RN There is no point in adjusting now since he will come off coumadin medication any way. We don't have a crystal ball. The procedure is minor. He has no recent thromboembolic event, so the indication for Lovenox injections off warfarin is less clear. So benefit not clear, risk of bleeding present, bridging anticoagulation with Lovenox is an option. He can let me know his decision. Pt called and is notified of providers results and instructions. Pt states he is going to be off the Coumadin on Thursday and his INR is 1.8, so why is he maintaining. He states, What if my INR goes down to 1.6. What happens if I get my 4th PE.. Please call and advise. Cyndy Whelan, RN Continue Coumadin dose until he holds coumadin 01/11 for dental extraction. INR testing per previous messages pertinent to the upcoming dental extractions. Last INR: 1.8 01/08/22 (today) at 11am Current dose of coumadin: 10mg daily Previous INR (date & result): 2.2 12/25/21 Additional clinical information or narrative: Pt reports no diet change, no bleeding & no alcohol intake for 8 days. Pt was taking amoxicillin X 7 days for dental infection, last dose taken was 01/06/22. Pt asking for call back regarding INR & dosage to be left on his voice mail Corrina Velarde LPN documented in this encounter [facility] 01-07-2022 Miscellaneous Notes Patient notified of below dosage recommendation, verbalized understanding. Per Patient's request, sent instructions through [employer]. Anticoag Tracker updated. Kari Briones LPN When resuming coumadin Jan 18 or (per oral surgeon directions), have him restart at 12.5 mg daily. INR 01/24. I suggest waiting one month before undertaking another procedure where coumadin will be held. Pt called in and reports he is going to have a tooth extracted. He is to go off his Coumadin on 01/11 five days before the extraction. Then he is suppose to have his INR tested on 01/15 and get the tooth pulled on 01/16, and be off the Coumadin for another two days. Pt is asking what dose of Coumadin provider would like him to be on after being off for so long. He states he was then told to get his INR drawn a week after his tooth was pulled on 01/24. Pt is also asking how long the provider thinks he should wait before scheduling his Colonoscopy, because he will have to go off of the Coumadin again. Please call and advise documented in this encounter [facility] 01-03-2022 Miscellaneous Notes Detailed message of provider's message below left on patient's confidential and personalized voicemail, per his request. Graciela Parker RN No urgent concern. Continue to monitor. I Patient reports he took his BP moments ago and it was 164/84, pulse 59. He is asking Dr. Hills if he should be concerned? Denies any symptoms. Continues lisinopril-hydrochlorothiazide as ordered -reports he takes it every evening. He states he took an extra half pill' of the medication this morning. States he has not drank any alcohol in 2-3 days and drank coffee earlier today. Also on amoxicillin for a bad tooth. Please advise patient. Thank you. documented in this encounter [facility] 01-02-2022 Miscellaneous Notes Pt called and is notified of providers message and instructions. Pt voices understanding. Cyndy Whelan RN 1) Dental form completed. 2) I defer to dentist about the need for additional pain medication, especially opioid medication. The Percocet he has from me is for chronic back pain. 3) It is reasonable to reschedule the colonoscopy to avoid prolonged period of low anticoagulation. Patient calls to check on status of request. Notified patient request is pending provider review. Patient verbalizes understanding. Patient also asking provider opinion on dental surgery following a colonoscopy. Patient asking if that would be too close together for holding Coumadin twice and should he rescheduled the colonoscopy for a later time? Antoinette Meadows RN Patient calling and reports he is waiting to schedule either a root canal or tooth extraction for a bad tooth he has. He is waiting for dental forms to be completed (see other encounter from today) to schedule his dental appt. In the meantime, he is asking if a one week supply of Percocet can be ordered for his 8 out of 10 tooth pain that he has. He is requesting 10 mg strength of Percocet-he states he tried one 5 mg Percocet that he had at home and it did nothing for his tooth pain. He states he does have antibiotics ordered from his dentist for his bad tooth. Uses [facility] in [place]. Please advise patient. Thank you. documented in this encounter [facility] 01-01-2022 Miscellaneous Notes Duplicate, addressed in another phone encounter Sara Baxter APRN.CNP Form received. Given to covering provider to review. Kari Briones LPN Patient calls and states that he just saw Dr. Justice from [facility]. Patient reports that Dr. Justice's office just faxed over forms requesting provider's instructions on how long patient needs to be off of coumadin before patient has tooth extraction done. Tooth extraction will not be scheduled until instructions are received. Please review and advise, Tammie Munguia RN documented in this encounter [facility] 12-26-2021 Miscellaneous Notes Patient notified of results, verbalizes understanding of instructions. Pt needs standing order for INR for another year. Ramila Zapata LPN Dose: No Change. Repeat in INR in 2 weeks Sara Baxter APRN.KAYLA Last INR: INR Home CoaguChek 2.2 12/25/2021 Current dose of coumadin is: .10 mg everyday except 12.5 mg on Thursday. Last date of dose change: 12/12/21. Previous INR (date and result): 12/11/21 was 3.9 Additional Clinical Information or narrative: INR goal is 2-3 Pt asking if provider would be able to extend his standing INR order for another year. He reports he only has two more visits left after today. Last INR: Pt will be getting today Current dose of coumadin is: Had decreased to 5 mg one day only, then back to 10 mg everyday except 12.5 mg on Thursday. Last date of dose change: 12/11/21. Previous INR (date and result): 3.9 Additional Clinical Information or narrative: yes: Denies any missed doses, no unusual bleeding and bruising, no recent antibiotic use, no diet changes and has not drank any alcohol 4-5 days prior to today's INR. documented in this encounter [facility] 12-19-2021 History of Presen t illness Narrative Carotid duplex unchanged from prior. Repeat in 2 years. Iglesia Ansari MD documented in this encounter [facility] 12-18-2021 Miscellaneous Notes Mr. Brooks had follow-up imagine done of his carotids ([place]) done yesterday and he states he received the results in [facility] and the results appear to be the same as they were in 2020. Mr. Brooks would like to know if he would still need to keep the virtual visit on 12/[address] Ansari? Rosalia Coffman Food General Manager documented in this encounter [facility] 12-18-2021 Miscellaneous Notes Noted uses med prn per PCP's November progress note. PDMP reviewed. The following approved medication requests have been transmitted electronically. Requested Prescriptions Signed Prescriptions Disp Refills oxyCODONE-acetaminophen (PERCOCET) 5-325 mg tablet 42 tablet 0 Sig: Take 1 tablet by mouth every 4 hours as needed for pain for up to 7 days. Authorizing Provider: MANI EDWARDS MD Patient has been identified by name and date of : Yes Patient phones for refill(s): Requested Prescriptions Pending Prescriptions Disp Refills oxyCODONE-acetaminophen (PERCOCET) 5-325 mg tablet 42 tablet 0 Sig: Take 1 tablet by mouth every 4 hours as needed for pain for up to 7 days. Date of last office visit in primary care: 11/13/2021 6 month follow-up: 05/16/2022 Last 2 Encounter Wt Readings: Date: Wt: 11/13/2021 81.2 kg (179 lb) 11/12/2021 82.1 kg (181 lb) Previous labs/tests for medication: Not applicable Please advise. Thank you. Kari Briones LPN documented in this encounter [facility] 12-17-2021 Miscellaneous Notes Returned call to patient, he had all his questions answered already by Shruti and Dr. Mcnamara and is satisfied, no further questions Patient calling back and wants to know what is exactly wrong with his right eye. He is referring to the office note below the section I put in paranthesis that he would like clarified. He is also requesting a sooner appt. however nothing has changed since the appt. below. # [phone] Patient is not available today from 2-4pm Assessment & Plan Kvng Mcnamara MD filed at 12/10/2021 11:50 AM Status: Signed This is a 76 year old male diagnosed upon referral with mac hole left eye s/p PPV ~9 years ago. Visual acuity with correction is 20/25 RE and 20/30 LE. IOP is 13 /13. Anterior segment exam is significant for centered PCL. Dilated fundus examination demonstrates closed hole. OCT with reconstution of EZ with abnormal foveal contour LE. (Right eye demonstrates resolution of subfoveal RPE disruption and SRF, trace ERM. Recommend observation and f/u in 6 months or sooner PRN, dispsense Mrx today. )Strict return precautions with AG. Patient called and would like clarification as to what is going on medically with his right eye. He is concerned about losing vision. He is requesting a phone call from Dr. Mcnamara or Shruti. Patient wants you to know that he did order his glasses from [employer]. Alex Brooks [phone] FV-06/24/21 LV-12/10/21 Assessment & Plan Kvng Mcnamara MD filed at 12/10/2021 11:50 AM Status: Signed This is a 76 year old male diagnosed upon referral with mac hole left eye s/p PPV ~9 years ago. Visual acuity with correction is 20/25 RE and 20/30 LE. IOP is 13 /13. Anterior segment exam is significant for centered PCL. Dilated fundus examination demonstrates closed hole. OCT with reconstution of EZ with abnormal foveal contour LE. Right eye demonstrates resolution of subfoveal RPE disruption and SRF, trace ERM. Recommend observation and f/u in 6 months or sooner PRN, dispsense Mrx today. Strict return precautions with AG. documented in this encounter [facility] 12-17-2021 Miscellaneous Notes Called Pharmacy, Patient has refill of Potassium, it is to early to fill. Patient can fill 01/02/2022. Kari Briones LPN documented in this encounter [facility] 12-12-2021 Miscellaneous Notes Patient notified of results and provider's instructions. Patient verbalizes understanding. Kristina Youssef LPN Decrease coumadin to 5 mg today only. Then resume usual dose. INR in one week. Patient returned call and verified coumadin dosing: Taking coumadin 10 mg all days except 12.5 mg on Thursday. Verifies home INR as 3.9 today. Denies any missed doses, no unusual bleeding and bruising, no recent antibiotic use, no diet changes and has not drank any alcohol 4-5 days prior to today's INR. Pt would like to note that he had 3 types of eye drops administered into his eye yesterday at his opthalmology appt. He states the eye medications were: -fluress -ak-dilate, sterling synephrine -mydriacyl Please advise. Thank you. Last INR: INR Home CoaguChek 3.9 12/11/2021 Current dose of coumadin is: . Last date of dose change: . 11/01/21 Previous INR (date and result): 11/27/21 Additional Clinical Information or narrative: INR goal is 2-3. Message left for pt to return call to a nurse to verify coumadin dose and pt findings. documented in this encounter [facility] 12-11-2021 Miscellaneous Notes Vitamins added - need PCP to remove ascorbic acid - elderberry Pt calling and requests the following medications to be changed on his list: (This nurse unable to change medication list, if office nurse could please) Remove ascorbic acid-elderberry=not taking Add Vit C 2000 mg tabs daily Add Vit D 3000 units daily Magnesium oxide 400 mg-Reports taking 2 capsules daily, not one. Thank you. documented in this encounter [facility] 12-10-2021 History of Presen t illness Narrative This is a 76 year old male diagnosed upon referral with mac hole left eye s/p PPV ~9 years ago. Visual acuity with correction is 20/25 RE and 20/30 LE. IOP is 13 /13. Anterior segment exam is significant for centered PCL. Dilated fundus examination demonstrates closed hole. OCT with reconstution of EZ with abnormal foveal contour LE. Right eye demonstrates resolution of subfoveal RPE disruption and SRF, trace ERM. Recommend observation and f/u in 6 months or sooner PRN, dispsense Mrx today. Strict return precautions with AG. I have confirmed and edited as necessary the relevant ophthalmic history, ROS, and the neuro exam findings as obtained by others. I have seen and examined Alex Brooks. I have discussed the case and the management of this patient's care with the Resident/Fellow, if applicable. I also have reviewed and agree with the assessment and plan as stated above and agree with all of its relevant components. documented in this encounter [facility] 11-28-2021 Miscellaneous Notes Patient notified of results and provider's instructions. Patient verbalizes understanding. Kristina Youssef LPN Continue Coumadin dose. INR in 2 weeks. Last INR: INR Home CoaguChek 3.0 11/27/2021 Current dose of coumadin is: 10 mg daily except 12.5 mg on Sundays. Last date of dose change: 11/01/21. Previous INR (date and result): 11/14/21 was 2.6 Additional Clinical Information or narrative: INR goal is 2-3. Patient calling ahead of time to verify his coumadin dosing: He takes 12.5 mg on sundays and 10 mg all other days. Reports no diet changes, no recent antibiotics, no unusual bleeding/bruising. No missed doses. Once INR results are back he requests a deatiled message be left on his VM if he does not answer-he prefers not to have to call office back to get message. Antoinette Meadows RN documented in this encounter [facility] 11-27-2021 Miscellaneous Notes Patient has been identified by name and date of : Yes Patient phones for refill(s): Requested Prescriptions Pending Prescriptions Disp Refills rosuvastatin (CRESTOR) 20 mg tablet 90 tablet 3 Sig: Take 1 tablet by mouth once daily. Date of last office visit in primary care: 11/13/2021 Appt: 05/16/2021 Last 2 Encounter Wt Readings: Date: Wt: 11/13/2021 81.2 kg (179 lb) 11/12/2021 82.1 kg (181 lb) Previous labs/tests for medication: Cholesterol: HDL Cholesterol (mg/dL) Date Value 11/01/2021 50 10/24/2020 51 LDL Cholesterol (mg/dL) Date Value 11/01/2021 52 10/24/2020 54 ALT (U/L) Date Value 11/01/2021 21 01/22/2021 46 Non HDL Cholesterol (mg/dL) Date Value 11/01/2021 70 10/24/2020 80 Please advise. Thank you. Kari Briones LPN documented in this encounter [facility] 11-25-2021 Miscellaneous Notes Patient has been identified by name and date of : Yes Patient phones for refill(s): Requested Prescriptions Pending Prescriptions Disp Refills warfarin (COUMADIN) 5 mg tablet 240 tablet 1 Sig: Take 2 tabs daily Mondays thru Fridays. Take 1&1/2 tablets Saturdays and Sundays. Date of last office visit in primary care: 11/13/2021 6 month follow-up: 05/16/2022 Last 2 Encounter Wt Readings: Date: Wt: 11/13/2021 81.2 kg (179 lb) 11/12/2021 82.1 kg (181 lb) Previous labs/tests for medication: Coumadin: PT INR (no units) Date Value 09/04/2021 2.2 INR (no units) Date Value 11/14/2021 2.6 Please advise. Thank you. Kari Briones LPN documented in this encounter [facility] 11-14-2021 Miscellaneous Notes Patient notified of results and provider's instructions. Patient verbalizes understanding. Kristina Youssef LPN Continue Coumadin dose. INR in 2 weeks. Last INR: 2.6 11/14/2021 Current dose of coumadin is: 10 mg daily except 12.5 mg on Sundays. Last date of dose change: 11/01/21. Previous INR (date and result): 11/01/21 was 2.1 Additional Clinical Information or narrative: INR goal is 2-3. Patient calling to state he has noted his INR result from today. He is calling ahead of time to verify his coumadin dosing: He takes 12.5 mg on sundays and 10 mg all other days. Reports no diet changes, no recent antibiotic use and bleeding/bruising. Asking for provider's offcice to advise on coumadin dosing. Requests a deatiled message be left on his VM if he does not answer-he prefers not to have to call office back to get message. Thank you. documented in this encounter [facility] 11-13-2021 History of Presen t illness Narrative This note was created using [employer]. Subjective Alex Brooks was here for follow up. His hypertension was labile, but better overall. His kidney function was back to normal. He was scheduled for colonoscopy. Anticoagulation was maintained on a chronic basis. His back pain was controlled, and opioid use was consistent. Review of Systems Constitutional: Negative. Respiratory: Negative. Cardiovascular: Negative. Gastrointestinal: Negative. Neurological: Negative. 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 potassium chloride SR (MICRO-K) 10 mEq CR capsule Take 1 capsule by mouth twice daily. LORazepam (ATIVAN) 2 mg tab Take 1 tablet by mouth at bedtime as needed (insomnia) for up to 180 days. Do not start before September 21, 2021. lisinopril-hydroCHLOROthiazide (PRINZIDE,ZESTORETIC) 20-12.5 mg per tablet Take 1 tablet by mouth once daily. warfarin (COUMADIN) 5 mg tablet Take 2 tabs daily Mondays thru Fridays. Take 1&1/2 tablets Saturdays and Sundays. famotidine (PEPCID) 40 mg tablet Take 1 tablet by mouth once daily as needed. rosuvastatin (CRESTOR) 20 mg tablet Take 1 tablet by mouth once daily. magnesium oxide 400 mg magnesium cap Take 1 capsule by mouth once daily. cholecalciferol, vitamin D3, (VITAMIN D3 ORAL) Take 3,000 Units by mouth once daily. SAW PALMETTO ORAL Take 400 mg by mouth twice daily. coenzyme Q10 (COENZYME Q-10) 100 mg cap capsule Take 400 mg by mouth once daily. aspirin, enteric coated (ASPIRIN LOW DOSE) 81 mg EC tablet Take 1 tablet by mouth once daily. Cyanocobalamin 2,500 mcg subl Dissolve under the tongue twice daily. calcium, elemental, tab Take 600 mg by mouth twice daily. multivitamin (SOFYA MULTIVITAMIN) tablet Take 1 tablet by mouth once daily. B Complex Vitamins (SUPER B-50 COMPLEX) capsule Take 1 capsule by mouth once daily. (Patient taking differently: Take 1 capsule by mouth twice daily.) vitamin B complex (B COMPLEX 1 ORAL) B Complex With Vitamin C Active 1 EA DAILY May 08, 2014 12:26pm (Patient not taking: Reported on 11/13/2021) No current facility-administered medications for this visit. Objective BP 104/54 (BP Site: Right Arm, BP Position: Sitting) Pulse 60 Temp 36.2 C (97.2 F) (Temporal) Resp 16 Wt 81.2 kg (179 lb) BMI 23.62 kg/m Physical Exam Constitutional: General: He is not in acute distress. Cardiovascular: Rate and Rhythm: Normal rate and regular rhythm. Heart sounds: No murmur heard. No gallop. Pulmonary: Breath sounds: Normal breath sounds. Musculoskeletal: Right lower leg: No edema. Left lower leg: No edema. Neurological: Mental Status: He is alert. Component Latest Ref Rng & Units 11/01/2021 Protein, Total 6.3 - 8.0 g/dL 7.1 Albumin 3.9 - 4.9 g/dL 4.6 Calcium 8.5 - 10.2 mg/dL 9.2 Bilirubin, Total 0.2 - 1.3 mg/dL 0.5 Alkaline Phosphatase 38 - 113 U/L 50 AST 14 - 40 U/L 26 ALT 10 - 54 U/L 21 Glucose 74 - 99 mg/dL 101 (H) BUN 9 - 24 mg/dL 23 Creatinine 0.73 - 1.22 mg/dL 0.76 Sodium 136 - 144 mmol/L 137 Potassium 3.7 - 5.1 mmol/L 4.0 Chloride 97 - 105 mmol/L 107 (H) CO2 22 - 30 mmol/L 20 (L) Anion Gap 9 - 18 mmol/L 10 eGFR >=60 mL/min/1.73m 92 WBC 3.70 - 11.00 k/uL 7.05 RBC 4.20 - 6.00 m/uL 4.88 Hemoglobin 13.0 - 17.0 g/dL 15.9 Hematocrit 39.0 - 51.0 % 46.3 MCV 80.0 - 100.0 fL 94.9 MCH 26.0 - 34.0 pg 32.6 MCHC 30.5 - 36.0 g/dL 34.3 RDW-CV 11.5 - 15.0 % 14.1 Platelet Count 150 - 400 k/uL 189 MPV 9.0 - 12.7 fL 9.7 Absolute nRBC <0.01 k/uL <0.01 Cholesterol, Total <200 mg/dL 120 Triglyceride <150 mg/dL 90 HDL Cholesterol >39 mg/dL 50 Non HDL Cholesterol <130 mg/dL 70 Fasting Time hrs 12 VLDL Cholesterol <30 mg/dL 18 TC:HDL Ratio <5.10 2.40 LDL Cholesterol <100 mg/dL 52 LDL:HDL Ratio <2.54 1.04 PT Sec 9.7 - 13.0 sec 21.3 (H) PT INR 0.9 - 1.3 2.1 (H) Vitamin D 25 Hydroxy 31.0 - 80.0 ng/mL 58.7 Assessment and Plan 1. Primary hypertension - ICD9: 401.9, ICD10: I10 (primary diagnosis) - good control - Continue current medication(s) - Reviewed risks of HTN and principles of treatment - Goal of BP <130/80 2. correction (current) use of anticoagulants - ICD9: V58.61, ICD10: Z79.01 - CBC 3. Mixed hyperlipidemia - ICD9: 272.2, ICD10: E78.2 - good control - Continue current medication. - COMP METABOLIC PANEL - LIPID PANEL BASIC 4. Screening for prostate cancer - ICD9: V76.44, ICD10: Z12.5 - Counseled on healthy diet and regular exercise - PSA/PROSTSPECAG SCRN 5. Chronic low back pain without sciatica, unspecified back pain laterality - ICD9: 724.2, 338.29, ICD10: M54.50, G89.29 - Stable. Opioid agreement updated. Medication used as needed and no refills were needed this time. Franc Hills MD documented in this encounter [facility] 11-12-2021 Instructions Micah Rosenberg MD - 11/12/2021 1:40 PM EDT Images from the original note were not included. Bowel Preparation Instructions for: Golytely, Nulytely, Trilyte or Colyte (polyethylene glycol 3350 and electrolytes) IF YOU DO NOT FOLLOW THESE DIRECTIONS, YOUR COLONOSCOPY WILL BE CANCELLED. [place] Instructions: Your bowel must be empty so that your doctor can clearly view your colon. Follow all of the instructions in this handout EXACTLY as they are written. Do NOT eat any solid food the ENTIRE day before your colonoscopy. Drink only clear liquids. Buy your bowel preparation at least 5 days before your colonoscopy. TRANSPORTATION on the Day of Your Exam A responsible person MUST be present with you at Check In prior to your colonoscopy and REMAIN in the endoscopy area until you are discharged. You are NOT ALLOWED to drive, take a taxi or bus, or leave the Endoscopy Center ALONE. If you do not have a responsible lease purchase driver (family member or friend) with you to take you home, your exam cannot be done with sedation and will be cancelled. Please bring a list of all of your current medications, including any Over-the Counter medications with you. Medications If you take insulin, diabetic medications or blood thinners such as Coumadin (warfarin), Plavix (clopidogrel), Ticlid (ticlopidine hydrochloride), Agrylin (anagrelide), Xarelto (Rivaroxaban), Pradaxa (Dabigatran), Eliquis (Apixaban), and Effient (Prasugrel). You MUST call the doctors who orders those medicines for instructions on altering the dosage before your colonoscopy. All other medications should be taken the day of the exam with a sip of water including ASPIRIN. Five (5) Days Before Your Colonoscopy Do NOT take medicines that stop diarrhea - such as Imodium, Kaopectate, or Pepto Bismol. Do NOT take fiber supplements - such as Metamucil, Citrucel, or Perdiem. Do NOT take products that contain iron - such as multi-vitamins (the label lists what is in the products). Do NOT take Vitamin E. Buy the prescription bowel preparation solution at your local pharmacy or drugstore pharmacy. 03/2019 Bowel Preparation Instructions for: Golytely, Nulytely, Trilyte or Colyte (polyethylene glycol 3350 and electrolytes) Three (3) Days Before Your Colonoscopy Do NOT eat high-fiber foods - such as popcorn, beans, seeds (flax, sunflower, quinoa), multigrain bread, nuts, salad/vegetables, or fresh and dried fruit. One (1) Day Before Your Colonoscopy Only drink clear liquids the ENTIRE DAY before your colonoscopy. Do NOT eat any solid foods. Drink at least 8 ounces of clear liquids every hour after waking up. The clear liquids you can drink include: Clear Liquid (NO RED LIQUIDS) DO NOT DRINK Gatorade, Pedialyte or Powerade Clear broth or bouillon Coffee or tea (no milk or non-dairy creamer) Carbonated and non-carbonated soft drinks Gigi-Aid or other fruit flavored drinks Strained fruit juices (no pulp) Jell-O, popsicles, hard candy Water Alcohol Milk or non-dairy creamers Noodles or vegetables in soup Juice with pulp Liquid you cannot see through Do not use tobacco/vaping products The bowel preparation solution will be consumed in two parts. Mix the solution the evening before your colonoscopy and refrigerate before drinking. You may add the flavor pack that came with the bowel preparation. Do NOT add ice, sugar or any other flavorings to the solution. Part 1 At 6:00 PM - Evening before your colonoscopy Drink an 8-oz glass of bowel preparation every 10 minutes for a total of 8 glasses. You may continue to drink clear liquids until midnight. Part 2 On the day of your colonoscopy you may drink clear liquids up to (three) 3 hours before your procedure. 4 1/2 hours before your colonoscopy Drink an 8-oz glass of bowel preparation every 10 minutes for a total of 8 glasses. Fifteen (15) minutes later, drink an 8-oz glass of clear liquids every 15 minutes for a total of 2 glasses. You may continue to drink clear liquids up to (three) 3 hours before your exam. 2 03/2019 Bowel Preparation Instructions for: Miralax-Gatorade Preparations IF YOU DO NOT FOLLOW THESE DIRECTIONS, YOUR COLONOSCOPY WILL BE CANCELLED. [place] Instructions: Your bowel must be empty so that your doctor can clearly view your colon. Follow all of the instructions in this handout EXACTLY as they are written. Do NOT eat any solid food the ENTIRE day before your colonoscopy. Buy your bowel preparation at least 5 days before your colonoscopy. Four (4) Dulcolax laxative tablets containing 5mg of bisacodyl each (NOT Dulcolax stool softener) One (1) 8.3oz. bottle Miralax (238 grams) or generic equivalent 2 x 32oz. Bottles of Gatorade (NOT RED) Diabetic Patients: Use G2 (Gatorade 2) TRANSPORTATION on the Day of Your Exam A responsible adult MUST be present with you at Check In prior to your colonoscopy and REMAIN in the endoscopy area until you are discharged. You are NOT ALLOWED to drive, take a taxi or bus, or leave the Endoscopy Center ALONE. If you do not have a responsible lease purchase driver (family member or friend) with you to take you home, your exam cannot be done with sedation and will be cancelled. Please bring a list of all of your current medications, including any Fqef-ilf-Zuteata medications with you. Medications If you take insulin, diabetic medications or blood thinners such as Coumadin (warfarin), Plavix (clopidogrel), Ticlid (ticlopidine hydrochloride), Agrylin (anagrelide), Xarelto (Rivaroxaban), Pradaxa (Dabigatran), Eliquis (Apixaban), and Effient (Prasugrel). You MUST call the doctors who orders those medicines for instructions on altering the dosage before your colonoscopy. All other medications should be taken the day of the exam with a sip of water including ASPIRIN. Five (5) Days Before Your Colonoscopy Do NOT take medicines that stop diarrhea - such as Imodium, Kaopectate, or Pepto Bismol. Do NOT take fiber supplements - such as Metamucil, Citrucel, or Perdiem. Do NOT take products that contain iron - such as multi-vitamins (the label lists what is in the products). Three (3) Days Before Your Colonoscopy Do NOT eat high-fiber foods - such as popcorn, beans, seeds (flax, sunflower, quinoa), multigrain bread, nuts, salad/vegetables, or fresh and dried fruit. 1 Bowel Preparation Instructions for: Miralax-Gatorade Preparations One (1) Day Before Your Colonoscopy Only drink clear liquids the ENTIRE DAY before your colonoscopy. Do NOT eat any solid foods. Drink at least 8 ounces of clear liquids every hour after waking up. The clear liquids you can drink include: Clear Liquid (NO RED LIQUIDS) DO NOT DRINK Gatorade, Pedialyte or Powerade Clear broth or bouillon Coffee or tea (no milk or non-dairy creamer) Carbonated and non-carbonated soft drinks Gigi-Aid or other fruit flavored drinks Strained fruit juices (no pulp) Jell-O, popsicles, hard candy Water Alcohol Milk or non-dairy creamers Noodles or vegetables in soup Juice with pulp Liquid you cannot see through Do not use tobacco/vaping products Mix 1/2 of Miralax bottle (119 grams) in each 32 ounces of Gatorade bottle until dissolved. Keep cool in the refrigerator. DO NOT ADD ICE. The bowel preparation solution will be consumed in two parts. Part 1 5:00 PM - Evening before your colonoscopy Take 4 Dulcolax tablets. 6 PM - Evening before your colonoscopy Drink 32 oz. of the mixed solution. Drink an 8 oz. glass of bowel preparation every 15 minutes for a total of 4 glasses. Fifteen (15) minutes later, drink an 8 oz. glass of of clear liquids every 15 minutes for a total of 2 glasses. You may continue to drink clear liquids till midnight. Part 2 On the day of your colonoscopy you may drink clear liquids up to (three) 3 hours prior to procedure. 4 1/2 hours before your colonoscopy Take another 32 oz. bottle of mixed solution. Drink an 8 oz. glass of bowel prep every 15 minutes for a total of 4 glasses. Fifteen (15) minutes later, drink an 8 oz. glass of clear liquids every 15 minutes for a total of 2 glasses. You may continue to drink clear liquids up to (three) 3 hours before your exam. 2 03/2019 documented in this encounter [facility] 11-12-2021 History of Presen t illness Narrative HISTORY AND PHYSICAL Alex Brooks 1945 REFERRING PHYSICIAN: Micah Rosenberg MD CHIEF COMPLAINT: Consult (Colonoscopy) HPI: The patient is a 76 year old male referred for endoscopy. Alex notes no history of colon complaints. The patient notes no history of upper GI complaints. Alex has undergone prior endoscopy. 2019 The patient is being seen by me today at the request of Dr. Franc Hills MD for my opinion and advice regarding Personal history of colonic polyps (primary encounter diagnosis). 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 Carotid stenosis, left 02/21/2019 s/p CEA Closed nondisplaced fracture of distal phalanx of right great toe 01/16/2021 Colonic polyp 11/29/2018 DDD (degenerative disc disease), lumbar 03/08/2014 Elevated prostate specific antigen (PSA) 09/15/2016 Esophageal reflux Fall at home 01/05/2018 Right Rib Fracture Hypertension Hypertrophy of prostate with urinary obstruction and other lower urinary tract symptoms (LUTS) 09/04/2008 With mild night-time symptoms, exam ok as of 09/2008 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 Related to sugar? -- see fasting glucose 2008; Impaired fasting glucose 10/11/2008 Under 110; See labs 10/12 INSOMNIA NOS 09/04/2008 Doing well with as-needed benzo at night Left bundle branch block 05/28/2010 Lumbago 02/23/2009 Lumbosacral spondylosis without myelopathy 08/07/2011 Lung disease [place]ever Mixed hyperlipidemia 10/05/2008 Neuropathy PE (pulmonary embolism) 09/04/2011 Peripheral vascular disease (HCC) Perirectal abscess 12/12/2008 Postconcussion syndrome 11/11/2011 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) 05/08/2014 Traumatic intracerebral hemorrhage (HCC) 09/26/2011 Ureterolithiasis 05/07/2011 PAST SURGICAL HISTORY Procedure Laterality Date CAROTID ENDARTERECTOMY Left 06/10/2019 Left CEA, bovine patch angioplasty COLONOSCOPY FLX DX W/COLLJ SPEC WHEN PFRMD 11/10/08 COLONSCOPY W/DECOMPRESS 11/29/2018 EGD TRANSORAL BIOPSY SINGLE/MULTIPLE 11/10/08 EXTRACTION, ERUPTED TOOTH OR EXPOSED ROOT (ELEVATION AND/OR FORCEPS REMOVAL) 1974 wisdom teeth F COLONOSCOPY WITH BIOPSY 11/29/2018 PAST SURGICAL HISTORY OF Left 1956 complex lac left hand, as a child PAST SURGICAL HISTORY OF 05-04-2013 Pars plana vitrectomy. TRANSCATH RETRIEVAL,PERCUT 09-20-12 IVC filter retrieval TRIESENCE INTRAVITREAL INJECTION OS (LEFT EYE) 10-25-13 VENA CAVA FILTER 09/26/2011 later removed Current Outpatient Medications Medication Sig oxyCODONE-acetaminophen (PERCOCET) 5-325 mg tablet Take 1 tablet by mouth every 4 hours as needed for pain for up to 7 days. potassium chloride SR (MICRO-K) 10 mEq CR capsule Take 1 capsule by mouth twice daily. LORazepam (ATIVAN) 2 mg tab Take 1 tablet by mouth at bedtime as needed (insomnia) for up to 180 days. Do not start before September 21, 2021. lisinopril-hydroCHLOROthiazide (PRINZIDE,ZESTORETIC) 20-12.5 mg per tablet Take 1 tablet by mouth once daily. warfarin (COUMADIN) 5 mg tablet Take 2 tabs daily Mondays thru Fridays. Take 1&1/2 tablets Saturdays and Sundays. vitamin B complex (B COMPLEX 1 ORAL) B Complex With Vitamin C Active 1 EA DAILY May 08, 2014 12:26pm famotidine (PEPCID) 40 mg tablet Take 1 tablet by mouth once daily as needed. rosuvastatin (CRESTOR) 20 mg tablet Take 1 tablet by mouth once daily. magnesium oxide 400 mg magnesium cap Take 1 capsule by mouth once daily. cholecalciferol, vitamin D3, (VITAMIN D3 ORAL) Take 3,000 Units by mouth once daily. SAW PALMETTO ORAL Take 400 mg by mouth twice daily. coenzyme Q10 (COENZYME Q-10) 100 mg cap capsule Take 400 mg by mouth once daily. aspirin, enteric coated (ASPIRIN LOW DOSE) 81 mg EC tablet Take 1 tablet by mouth once daily. Cyanocobalamin (VITAMIN B-12) 2,500 mcg subl Dissolve under the tongue twice daily. calcium, elemental, tab Take 600 mg by mouth twice daily. multivitamin (SOFYA MULTIVITAMIN) tablet Take 1 tablet by mouth once daily. B Complex Vitamins (SUPER B-50 COMPLEX) capsule Take 1 capsule by mouth once daily. No current facility-administered medications for this visit. ALLERGIES: Coumadin [Warfarin] and Keflex [Cephalexin] PERSONAL HISTORY: Social History Tobacco Use Smoking status: Former Packs/day: 1.00 Years: 20.00 Pack years: 20.00 Types: Cigarettes Quit date: 04/06/1980 Years since quittin.6 Smokeless tobacco: Never Vaping Use Vaping Use: Never used Substance Use Topics Alcohol use: Not Currently Alcohol/week: 37.5 standard drinks Types: 15 Glasses of Wine (5oz) per week Comment: CAGE negative. Drug use: Yes Types: Marijuana FAMILY HISTORY: FAMILY HISTORY Problem Relation Age of Onset Hypertension Mother (longevity on mom's side) Cataract Mother Coronary Artery Disease Father father who of sudden cardiac arrest age 74 Heart Father heart stopped Blood Disease Brother pulmonary embolism history No Known Problems Maternal Grandmother No Known Problems Maternal Grandfather No Known Problems Paternal Grandmother Heart Paternal Grandfather Colon Cancer Other no close relatives known Prostate Cancer Other none Emphysema Other none REVIEW OF SYMPTOMS: The review of systems data was entered by the nurse and reviewed by ks Nursing Notes: Katia Clayton 11/12/2021 1:18 PM Signed REVIEW OF SYSTEMS: General: The patient denies fatigue, denies weight loss, denies weight gain, denies feeling hot, and denies feelings of cold. Eyes: The patient denies glaucoma, NOTES eye injury/surgery, wears glasses or contacts. Ear/Nose/Throat: The patient denies allergies, denies hayfever, denies ear infections, and denies bloody noses. Cardiovascular: The patient denies chest pain, NOTES heart disease, NOTES high blood pressure,denies cardiac stent, denies prior heart attack, denies irregular heart beat, NOTES high cholesterol, NOTES poor circulation, denies heart failure, other cardiac issues, denies claudication, denies cold feet, denies peripheral arterial stent. Respiratory: The patient denies tuberculosis, denies pneumonia, denies frequent cough, denies pulmonary embolism, denies shortness of breath, and denies coughing up blood. Gastrointestinal: The patient denies difficulty swallowing, denies acid reflux, denies ulcers, denies vomiting, denies jaundice/hepatitis, denies gallbladder problems, denies black or tarry stools, NOTES hemorrhoids, denies bleeding from rectum, denies diverticulitis, denies constipation, denies diarrhea, denies loss of stool control, and denies hernias. Kidney/Bladder: The patient denies kidney stones, denies urine infections, and denies bloody urine. Skin: The patient denies a history of skin cancer, denies bleeding/changing moles, and denies a history of skin rash. Neurologic: The patient denies a history of epilepsy/convulsions, denies headaches, denies head/spinal injuries, and denies stroke/TIA. Psychiatric: The patient denies psychiatric medications, denies depression, and denies voices, denies substance abuse. Endocrine: The patient denies thyroid disorders, denies diabetes, and denies hormonal problems. Hematologic: The patient NOTES a history of bruising, NOTES bleeding, and denies anemia, NOTES blood clots. Infections: The patient NOTES a history of measles and mumps, denies rheumatic fever, and denies sexually transmitted diseases. Musculoskeletal: The patient NOTES back pain/injury, NOTES back problems, denies sciatica, denies knee/foot trouble, NOTES arthritis, or denies gout. When was patient's last Mammogram screening? N/A Last Colonoscopy: 2019 Katia Clayton PHYSICAL EXAMINATION: General: The patient is 76 year old male, well nourished, well hydrated in no acute distress. The patient is oriented to time, place, and person. VITALS: Blood pressure 134/80, pulse 71, temperature 36.6 C (97.9 F), height 185.4 cm (6' 1), weight 82.1 kg (181 lb), SpO2 99 %. Body mass index is 23.88 kg/m . HEENT: Normal cephalic, ataumatic, pupils are equally round, sclera are anicteric, mucous membranes are moist, oropharynx is clear. Neck has no masses, asymmetry or lymphadenopathy. Thyroid is unremarkable. Respiratory: Clear to auscultation and percussion. Normal respiratory excursion and pattern. Cardiac: Examination is regular rate and rhythm. Abdominal exam: Soft, nontender, with no palpable masses. No hepatosplenomegaly. No palpable hernias. Rectal exam: exam deferred Extremities: no clubbing, cyanosis or edema. No adenopathy. Other: LABORATORY VALUES: As Noted RADIOLOGIC STUDIES: As Noted Assessment IMPRESSION: Personal history of colonic polyps (primary encounter diagnosis) PLAN: I plan to perform lower endoscopy. We discussed the risks and benefits of the planned endoscopy. I have informed the patient that complications can occur including failure to complete the endoscopy and perforation. The patient had the opportunity to ask questions concerning the planned endoscopy. My staff has also explained the procedure to the patient in understandable terms and has given the patient printed material concerning the procedure. The patient freely consents to surgery. I plan to use golytely bowel preparation for endoscopy I plan for monitored anesthetic care.at [facility] Diagnoses: (Z86.010) Personal history of colonic polyps (primary encounter diagnosis) My findings have been communicated to Dr. Franc Hills MD via shared medical record. This note will be forwarded to Dr. Franc Hills MD. Return to Clinic: The patient is instructed to follow-up with me 1 week post operatively. Micah Rosenberg III, MD documented in this encounter [facility] 11-12-2021 Nurse Note REVIEW OF SYSTEMS: General: The patient denies fatigue, denies weight loss, denies weight gain, denies feeling hot, and denies feelings of cold. Eyes: The patient denies glaucoma, NOTES eye injury/surgery, wears glasses or contacts. Ear/Nose/Throat: The patient denies allergies, denies hayfever, denies ear infections, and denies bloody noses. Cardiovascular: The patient denies chest pain, NOTES heart disease, NOTES high blood pressure,denies cardiac stent, denies prior heart attack, denies irregular heart beat, NOTES high cholesterol, NOTES poor circulation, denies heart failure, other cardiac issues, denies claudication, denies cold feet, denies peripheral arterial stent. Respiratory: The patient denies tuberculosis, denies pneumonia, denies frequent cough, denies pulmonary embolism, denies shortness of breath, and denies coughing up blood. Gastrointestinal: The patient denies difficulty swallowing, denies acid reflux, denies ulcers, denies vomiting, denies jaundice/hepatitis, denies gallbladder problems, denies black or tarry stools, NOTES hemorrhoids, denies bleeding from rectum, denies diverticulitis, denies constipation, denies diarrhea, denies loss of stool control, and denies hernias. Kidney/Bladder: The patient denies kidney stones, denies urine infections, and denies bloody urine. Skin: The patient denies a history of skin cancer, denies bleeding/changing moles, and denies a history of skin rash. Neurologic: The patient denies a history of epilepsy/convulsions, denies headaches, denies head/spinal injuries, and denies stroke/TIA. Psychiatric: The patient denies psychiatric medications, denies depression, and denies voices, denies substance abuse. Endocrine: The patient denies thyroid disorders, denies diabetes, and denies hormonal problems. Hematologic: The patient NOTES a history of bruising, NOTES bleeding, and denies anemia, NOTES blood clots. Infections: The patient NOTES a history of measles and mumps, denies rheumatic fever, and denies sexually transmitted diseases. Musculoskeletal: The patient NOTES back pain/injury, NOTES back problems, denies sciatica, denies knee/foot trouble, NOTES arthritis, or denies gout. When was patient's last Mammogram screening? N/A Last Colonoscopy: 2019 Katia Clayton documented in this encounter [facility] 11-02-2021 Miscellaneous Notes Patient notified of instructions and verbalized understanding. Celia Sanders LPN Increase Coumadin dose. 12.5 mg on Sundays. 10 mg Mondays thru Saturdays. INR in 2 weeks. Last INR: INR Home CoaguChek 2.1 11/01/2021 Current dose of coumadin is: 10 mg daily. Last date of dose change: 09/04/21. Previous INR (date and result): 10/16/21 was 2.4 Additional Clinical Information or narrative: Patient called in with question regarding to his Coumadin. He states that reading is 2.0. Is currently on taking 10 mg of warfarin daily. He is questioning if dose should be bumped up a little bit as he was told his reading should be 2.5. Please advise. documented in this encounter [facility] 10-25-2021 Miscellaneous Notes Mr. Ordonez has a follow-up appointment scheduled with Dr. Ansari in December. 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 He would like to know if he can have the ultrasound done at [place] and follow-up virtually? Rosalia Coffman Food General Manager documented in this encounter [facility] 10-16-2021 Miscellaneous Notes Continue Coumadin dose. He is taking 10 mg daily. INR in 2 weeks. Patient notified during ER follow up. Last INR: 2.4 10/16/2021 Current dose of coumadin is: . Last date of dose change: 09/04/21. Previous INR (date and result): 10/03/21 was 2.0 Additional Clinical Information or narrative: INR goal is 2-3. Pt has appt today with pcp. Please review. documented in this encounter [facility] 10-16-2021 History of Presen t illness Narrative This note was created using [employer]. Subjective Alex Brooks is a 76 year old male here for ER follow up. He had an accidental fall, closed head injury on coumadin. He went to the ED 09/28/[address] showed no bleed. He had right sided neck pain from the fall that was improving, but he had to take Percocet normally taken as needed for chronic back pain. He was requesting Percocet at this time. His hypertension was fair. Anticoagulation was checked. He just took 10 mg daily straight. Review of Systems Constitutional: Negative. Respiratory: Negative. Cardiovascular: Negative. Musculoskeletal: Positive for neck pain. Neurological: Negative for dizziness, weakness, numbness and headaches. 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 oxyCODONE-acetaminophen (PERCOCET) 5-325 mg tablet Take 1 tablet by mouth every 4 hours as needed for pain for up to 7 days. LORazepam (ATIVAN) 2 mg tab Take 1 tablet by mouth at bedtime as needed (insomnia) for up to 180 days. Do not start before September 21, 2021. lisinopril-hydroCHLOROthiazide (PRINZIDE,ZESTORETIC) 20-12.5 mg per tablet Take 1 tablet by mouth once daily. warfarin (COUMADIN) 5 mg tablet Take 2 tabs daily Mondays thru Fridays. Take 1&1/2 tablets Saturdays and Sundays. vitamin B complex (B COMPLEX 1 ORAL) B Complex With Vitamin C Active 1 EA DAILY May 08, 2014 12:26pm famotidine (PEPCID) 40 mg tablet Take 1 tablet by mouth once daily as needed. rosuvastatin (CRESTOR) 20 mg tablet Take 1 tablet by mouth once daily. magnesium oxide 400 mg magnesium cap Take 1 capsule by mouth once daily. cholecalciferol, vitamin D3, (VITAMIN D3 ORAL) Take 3,000 Units by mouth once daily. SAW PALMETTO ORAL Take 400 mg by mouth twice daily. coenzyme Q10 (COENZYME Q-10) 100 mg cap capsule Take 400 mg by mouth once daily. aspirin, enteric coated (ASPIRIN LOW DOSE) 81 mg EC tablet Take 1 tablet by mouth once daily. Cyanocobalamin (VITAMIN B-12) 2,500 mcg subl Dissolve under the tongue twice daily. calcium, elemental, tab Take 600 mg by mouth twice daily. multivitamin (SOFYA MULTIVITAMIN) tablet Take 1 tablet by mouth once daily. B Complex Vitamins (SUPER B-50 COMPLEX) capsule Take 1 capsule by mouth once daily. No current facility-administered medications for this visit. Objective BP 139/78 (BP Site: Left Arm, BP Position: Sitting, BP Cuff Size: Large Adult) Pulse 66 Temp 36.1 C (97 F) (Temporal Artery) Resp 20 Wt 80.6 kg (177 lb 12.8 oz) BMI 23.46 kg/m Physical Exam HENT: Head: Atraumatic. Musculoskeletal: Cervical back: Neck supple. Pain with movement and muscular tenderness present. Normal range of motion. Neurological: General: No focal deficit present. Mental Status: He is alert. ER report reviewed. Assessment and Plan 1. Fall, subsequent encounter - ICD9: V58.89, E888.9, ICD10: W19.XXXD (primary diagnosis) 2. Chronic low back pain without sciatica, unspecified back pain laterality - ICD9: 724.2, 338.29, ICD10: M54.50, G89.29 Refilled. - OXYCODONE-ACETAMINOPHEN 5 MG-325 MG TABLET 3. Closed head injury, subsequent encounter - ICD9: V58.89, 959.01, ICD10: S09.90XD Fall avoidance. 4. Neck pain on right side - ICD9: 723.1, ICD10: M54.2 Strain, resolving. 5. 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) - ICD9: 415.19, ICD10: I26.99 See anticoagulation encounter. Franc Hills MD documented in this encounter [facility] 10-14-2021 Miscellaneous Notes Patient calling to say he has had some neck and shoulder pain after his fall. Advised ER follow up appointment. Scheduled 10/16 with PCP. Molly Ann RN documented in this encounter [facility] 10-03-2021 Miscellaneous Notes Patient notified of results and provider's instructions. Patient verbalizes understanding. Kristina Youssef LPN Continue Coumadin dose. INR in 2 weeks. Pt called in before INR finished processing. Pt wanted ER visit to be obtained from [facility] for provider to look at. Sent providers nurse a message and she is working on it. Last INR:INR Home CoaguChek 10/03/2021 Current dose of coumadin is: 10 mg Thu-Thu, and 7.5 mg on Thursday. Last date of dose change: 09/04/21. Previous INR (date and result): 3.0 Additional Clinical Information or narrative: yes: Pt denies diet change states he drinks 1 bottle of wine over 5-6 days hasn't had any 3-4 days before this INR test. Pt denies missing any doses and being on antibiotics. Pt report he was in [facility] ER 09/28 and had bruises on his ribs that they x-rayed, from a fall. documented in this encounter [facility] 10-02-2021 Miscellaneous Notes Patient has been identified by name and date of : Yes Patient phones for refill(s): Pending Prescriptions Disp Refills POTASSIUM CHLORIDE ER 10 MEQ CAPSULE,EXTENDED RELEASE 180 capsule 1 Sig: Take 1 capsule by mouth twice daily. TIM: No Date of last office visit in primary care: 09/23/21 next apt 11/13/21 Last 2 Encounter Wt Readings: Date: Wt: 09/23/2021 81.6 kg (180 lb) 08/22/2021 81.2 kg (179 lb) Previous labs/tests for medication: Not applicable Please advise. Thank you. Maribel Oden LPN documented in this encounter [facility] 09-23-2021 Miscellaneous Notes Images from the original note were not included. Prior authorization approved Payer: [employer] [phone] CaseId:[id number];Status:Approved; Review Type:Prior Auth;Coverage Start Date:09/09/2021;Coverage End Date:09/23/2022; Approval Details Authorized from September 09, 2021 to September 23, 2022 Electronic PA completed for lorazepam. documented in this encounter [facility] 09-23-2021 Instructions Teri Gruber APRN.[facility] - 09/23/2021 9:40 AM EDT Call your insurance and inquire if you will need a referral for a cemetery counselor. Would recommend seeing dentist as well. documented in this encounter [facility] 09-23-2021 History of Presen t illness Narrative Chief Complaint Patient presents with: Mouth/Lip Problem: pain in chin & gums x 1 week HPI Alex Brooks is a 76 year old male who presents here today for Above Complaints.. Today: Started with pain in his gums. Does have a tendency to over brush teeth. He states he has had some pain before following brushing like this. Has been gargling with salt water. This has reduced pain from 8-9/10 to now 1-2/10, but does return. Top upper left gum has been painful, but seems to have improved. Chin has been bothering him for about 1.5 weeks. Possibly from his teeth, he thinks. Does have rx for Percocet. Has taken twice in the past two days. Thinks it may have reduced inflammation a bit. Decreased pain for about 8 hours. Denies hx of chewing tobacco. Stopped smoking in 1980. Has not seen a dentist in 12+ years. Past medical history, appointments, medications, allergies reviewed. Previous Medical History 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 Carotid stenosis, left 02/21/2019 s/p CEA Closed nondisplaced fracture of distal phalanx of right great toe 01/16/2021 Colonic polyp 11/29/2018 DDD (degenerative disc disease), lumbar 03/08/2014 Elevated prostate specific antigen (PSA) 09/15/2016 Esophageal reflux Fall at home 01/05/2018 Right Rib Fracture Hypertension Hypertrophy of prostate with urinary obstruction and other lower urinary tract symptoms (LUTS) 09/04/2008 With mild night-time symptoms, exam ok as of 09/2008 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 Related to sugar? -- see fasting glucose 2008; Impaired fasting glucose 10/11/2008 Under 110; See labs 10/12 INSOMNIA NOS 09/04/2008 Doing well with as-needed benzo at night Left bundle branch block 05/28/2010 Lumbago 02/23/2009 Lumbosacral spondylosis without myelopathy 08/07/2011 Lung disease [place] Fever Mixed hyperlipidemia 10/05/2008 Neuropathy PE (pulmonary embolism) 09/04/2011 Peripheral vascular disease (HCC) Perirectal abscess 12/12/2008 Postconcussion syndrome 11/11/2011 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) 05/08/2014 Traumatic intracerebral hemorrhage (HCC) 09/26/2011 Ureterolithiasis 05/07/2011 Previous Surgical History PAST SURGICAL HISTORY Procedure Laterality Date CAROTID ENDARTERECTOMY Left 06/10/2019 Left CEA, bovine patch angioplasty COLONOSCOPY FLX DX W/COLLJ SPEC WHEN PFRMD 11/10/08 COLONSCOPY W/DECOMPRESS 11/29/2018 EGD TRANSORAL BIOPSY SINGLE/MULTIPLE 11/10/08 EXTRACTION, ERUPTED TOOTH OR EXPOSED ROOT (ELEVATION AND/OR FORCEPS REMOVAL) 1974 wisdom teeth F COLONOSCOPY WITH BIOPSY 11/29/2018 PAST SURGICAL HISTORY OF Left 1956 complex lac left hand, as a child PAST SURGICAL HISTORY OF 05-04-2013 Pars plana vitrectomy. TRANSCATH RETRIEVAL,PERCUT 09-20-12 IVC filter retrieval TRIESENCE INTRAVITREAL INJECTION OS (LEFT EYE) 10-25-13 VENA CAVA FILTER 09/26/2011 later removed Family History FAMILY HISTORY Problem Relation Age of Onset Hypertension Mother (longevity on mom's side) Cataract Mother Coronary Artery Disease Father father who of sudden cardiac arrest age 74 Heart Father heart stopped Blood Disease Brother pulmonary embolism history No Known Problems Maternal Grandmother No Known Problems Maternal Grandfather No Known Problems Paternal Grandmother Heart Paternal Grandfather Colon Cancer Other no close relatives known Prostate Cancer Other none Emphysema Other none Patient Allergies ALLERGIES Allergen Reactions Coumadin [Warfarin] Rash Patient reports a rash when patient is on coumadin and any antibiotic is prescribed Keflex [Cephalexin] Rash Current Medications Current Outpatient Medications on File Prior to Visit Medication Sig LORazepam (ATIVAN) 2 mg tab Take 1 tablet by mouth at bedtime as needed (insomnia) for up to 180 days. Do not start before September 21, 2021. lisinopril-hydroCHLOROthiazide (PRINZIDE,ZESTORETIC) 20-12.5 mg per tablet Take 1 tablet by mouth once daily. warfarin (COUMADIN) 5 mg tablet Take 2 tabs daily Mondays thru Fridays. Take 1&1/2 tablets Saturdays and Sundays. vitamin B complex (B COMPLEX 1 ORAL) B Complex With Vitamin C Active 1 EA DAILY May 08, 2014 12:26pm oxyCODONE-acetaminophen (PERCOCET) 5-325 mg tablet Take 1 tablet by mouth every 4 hours as needed for pain for up to 7 days. potassium chloride SR (MICRO-K) 10 mEq CR capsule Take 1 capsule by mouth twice daily. famotidine (PEPCID) 40 mg tablet Take 1 tablet by mouth once daily as needed. rosuvastatin (CRESTOR) 20 mg tablet Take 1 tablet by mouth once daily. magnesium oxide 400 mg magnesium cap Take 1 capsule by mouth once daily. cholecalciferol, vitamin D3, (VITAMIN D3 ORAL) Take 3,000 Units by mouth once daily. SAW PALMETTO ORAL Take 400 mg by mouth twice daily. coenzyme Q10 (COENZYME Q-10) 100 mg cap capsule Take 400 mg by mouth once daily. aspirin, enteric coated (ASPIRIN LOW DOSE) 81 mg EC tablet Take 1 tablet by mouth once daily. Cyanocobalamin (VITAMIN B-12) 2,500 mcg subl Dissolve under the tongue twice daily. calcium, elemental, tab Take 600 mg by mouth twice daily. multivitamin (SOFYA MULTIVITAMIN) tablet Take 1 tablet by mouth once daily. Ascorbic Acid (VITAMIN C) 1,000 mg tablet Take 1 tablet by mouth once daily. (Patient taking differently: Take 2,000 mg by mouth once daily. ) B Complex Vitamins (SUPER B-50 COMPLEX) capsule Take 1 capsule by mouth once daily. No current facility-administered medications on file prior to visit. Social History Social History Tobacco Use Smoking status: Former Smoker Packs/day: 1.00 Years: 20.00 Pack years: 20.00 Types: Cigarettes Quit date: 04/06/1980 Years since quittin.4 Smokeless tobacco: Never Used Vaping Use Vaping Use: Never used Substance Use Topics Alcohol use: Not Currently Alcohol/week: 37.5 standard drinks Types: 15 Glasses of Wine (5oz) per week Comment: CAGE negative. Drug use: Yes Types: Marijuana Review of Symptoms REVIEW OF SYSTEMS See HPI, otherwise negative EXAM: BP 132/78 (BP Site: Left Arm, BP Position: Sitting, BP Cuff Size: Regular Adult) Pulse 64 Resp 16 Wt 81.6 kg (180 lb) SpO2 98% BMI 23.75 kg/m General Appearance: Well appearing, alert, in no acute distress, well-hydrated, well nourished.. Oropharynx: Positive findings: gingivitis, periodontitis, gingival hypertrophy, dental caries. Health Maintenance List BP CONTROLLED (<130/80) due on 10/27/2019 DEPRESSION SCREENING due on 07/09/2021 ANNUAL PCP TEAM CHRONIC DISEASE VISIT due on 09/23/2022 DIABETES SCREEN due on 05/07/2024 DTAP,TDAP,TD(3 - Td or Tdap) due on 01/10/2031 INFLUENZA Completed ADVANCE DIRECTIVE DISCUSSION Completed HEPATITIS C SCREENING Completed COVID-19 VACCINE Completed PNEUMOCOCCAL: 65+ Completed SHINGRIX VACCINE Discontinued Data reviewed Previous records, office notes ASSESSMENT/PLAN: 1. Pain in gums - ICD9: 523.9, ICD10: K06.8 (primary diagnosis) Recommend dentist and cemetery counselor. Severe disease and dental caries. 2. Periodontal disease - ICD9: 523.9, ICD10: K05.6 Recommend dentist and cemetery counselor. Severe disease and dental caries. 3. Chronic low back pain without sciatica, unspecified back pain laterality - ICD9: 724.2, 338.29, ICD10: M54.50, G89.29 Recommend dentist and cemetery counselor. Severe disease and dental caries. Refill given. - OXYCODONE-ACETAMINOPHEN 5 MG-325 MG TABLET Teri Gruber APRN.[facility] PDMP website checked and validated. All prescriptions have been APPROPRIATELY filled. No suspicious activity was identified. 09/23/2021 by Teri Gruber CNP. documented in this encounter [facility] 09-20-2021 Miscellaneous Notes Patient has been identified by name and date of : Yes Patient phones for refill(s): Pending Prescriptions Disp Refills LORAZEPAM 2 MG TABLET 90 tablet 1 Sig: Take 1 tablet by mouth at bedtime as needed (insomnia) for up to 180 days. PER Class: C-IV TIM: No Date of last office visit in primary care: 08/22/2021, has appt 11/13/2021 Last 2 Encounter Wt Readings: Date: Wt: 08/22/2021 81.2 kg (179 lb) 08/16/2021 81.2 kg (179 lb) Previous labs/tests for medication: Not applicable Please advise. Thank you. Tala Torres LPN Patient rx runs out tomorrow. documented in this encounter [facility] 09-18-2021 Miscellaneous Notes Patient notified, tracker updated. Dose: No Change. Repeat in INR in 2 weeks Sara Baxter APRN.[facility] Last INR: INR Home CoaguChek 3.0 09/18/2021 Current dose of coumadin is: 10 mg Mondays thru Saturdays. 7.5 mg on Sundays . Last date of dose change: 09/04/21. Previous INR (date and result): 09/04/21 was 2.2 Additional Clinical Information or narrative: INR goal is 2-3. Pt's reports pt findings are negative. documented in this encounter [facility] 09-04-2021 Miscellaneous Notes Patient notified and tracker updated. Increase Coumadin dose 10 mg Mondays thru Saturdays. 7.5 mg on Sundays. INR in 2 weeks. Last INR: 2.2 09/04/2021 Current dose of coumadin is: Coumadin 10 mg Thursday through Thursday 7.5 mg on Thursday and Thursday Last date of dose change: 08/22/2021 Previous INR (date and result): 08/22/2021 2.3 Additional Clinical Information or narrative: yes: No unusual bleeding or bruising, no recent antibiotics, no missed doses, and no change in diet. documented in this encounter [facility] 09-04-2021 Miscellaneous Notes Patient notified of below response, verbalized understanding. Kari Briones LPN Okay to vary BP medication from 1/2 tablet to one tablet depending on home BP measurement. Pt calling to report he checks his BP daily & states he has been getting some low readings. 09/03/21 85/55 83/54 98/56 09/04/21 109/71 99/69 102/68 On 09/01/21 BP was 136/75 Pt states he does not feel any different when his BP is low, denies lightheadedness or dizziness. Pt states he checks his BP in the am before taking his BP med. Pt takes Lisinopril hctz 20 - 12.5mg & is asking if on the mornings that his BP is low, can he take 1/2 of the lisinopril/hctz tab & when his BP is normal he will take a full tab? Please advise pt if this is acceptable. Corrina Velarde LPN documented in this encounter [facility] 08-23-2021 Miscellaneous Notes Okay. Patient calls to update provider on BP readings since appointment yesterday. Patient reports that blood pressure last night at 9 pm was 118/64 and this morning at 8 am it was 113/64 HR 55. He took a full dose of lisinopril/hctz yesterday and today at 9 am. Patient wanted provider to know that he thinks the medication just works slower in his system. Antoinette Meadows RN documented in this encounter [facility] 08-22-2021 Miscellaneous Notes Patient received information at clinic appointment today. Molly Ann RN COUMADIN 10 MG MONDAYS THRU FRIDAYS. 7.5 MG SATURDAYS AND SUNDAYS. INR IN 2 WEEKS. See clinic encounter. Last INR: INR Home CoaguChek 2.3 08/22/2021 Current dose of coumadin is: 10 mg and 7.5mg other days. Last date of dose change: 07/24/21 . Previous INR (date and result): 08/07/21 was 2.1 Additional Clinical Information or narrative: INR goal is 2-3. Pt findings are negative. He has appt today. He notes previously when INR is below 2 it is when he had taken 7.5 mg documented in this encounter [facility] 08-22-2021 Instructions Franc Hills MD - 08/22/2021 6:34 PM EDT COUMADIN 10 MG MONDAYS THRU FRIDAYS. 7.5 MG SATURDAYS AND SUNDAYS. INR IN 2 WEEKS. documented in this encounter [facility] 08-22-2021 History of Presen t illness Narrative This note was created using [employer]. Subjective Alex Brooks is a 75 year old male. He saw the GRAIN SACKER 1.5 weeks ago, and was treated for otitis media. He continued to have positional associated popping of the right ear. He had mild allergies. He denied hearing loss. He was here for hypertension which has been elevating. He monitored twice a day. His machine correlated with office readings. For trial, he took a whole tablet of lisinopril HCTZ this morning to see if his BP will be lower this afternoon. He just saw his trap operator a week ago and no changes were recommended. We reviewed his anticoagulation. He preferred to be closer to 2.5 as a target, the median of his therapeutic range 2-3. He was also trying to get approval for either apixiban or rivaroxaban. Review of Systems Constitutional: Negative for fever. HENT: Negative for ear pain and hearing loss. Respiratory: Negative. Cardiovascular: Negative. Hematological: Negative. 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 lisinopril-hydroCHLOROthiazide (PRINZIDE,ZESTORETIC) 20-12.5 mg per tablet Take 0.5 tablets by mouth once daily. Patient is taking 1/2 tablet once daily. warfarin (COUMADIN) 5 mg tablet Take 2 tabs daily (Patient taking differently: 10 mg 4 days per week, 7.5 mg 3 days per week ) LORazepam (ATIVAN) 2 mg tab Take 1 tablet by mouth at bedtime as needed (insomnia) for up to 180 days. potassium chloride SR (MICRO-K) 10 mEq CR capsule Take 1 capsule by mouth twice daily. famotidine (PEPCID) 40 mg tablet Take 1 tablet by mouth once daily as needed. rosuvastatin (CRESTOR) 20 mg tablet Take 1 tablet by mouth once daily. magnesium oxide 400 mg magnesium cap Take 1 capsule by mouth once daily. cholecalciferol, vitamin D3, (VITAMIN D3 ORAL) Take 3,000 Units by mouth once daily. SAW PALMETTO ORAL Take 400 mg by mouth twice daily. coenzyme Q10 (COENZYME Q-10) 100 mg cap capsule Take 400 mg by mouth once daily. fluticasone (FLONASE) 50 mcg/actuation nasal spray Use 2 Sprays in each nostril once daily. Rinse mouth after use. (Patient not taking: Reported on 08/16/2021 ) aspirin, enteric coated (ASPIRIN LOW DOSE) 81 mg EC tablet Take 1 tablet by mouth once daily. Cyanocobalamin (VITAMIN B-12) 2,500 mcg subl Dissolve under the tongue twice daily. calcium, elemental, tab Take 600 mg by mouth twice daily. multivitamin (SOFYA MULTIVITAMIN) tablet Take 1 tablet by mouth once daily. Ascorbic Acid (VITAMIN C) 1,000 mg tablet Take 1 tablet by mouth once daily. (Patient taking differently: Take 2,000 mg by mouth once daily. ) B Complex Vitamins (SUPER B-50 COMPLEX) capsule Take 1 capsule by mouth once daily. No current facility-administered medications for this visit. Objective BP 150/77 Pulse 65 Temp 36.6 C (97.8 F) Resp 16 Wt 81.2 kg (179 lb) SpO2 96% BMI 23.62 kg/m Physical Exam Constitutional: Appearance: Normal appearance. HENT: Right Ear: Tympanic membrane normal. Left Ear: Tympanic membrane normal. Nose: Septal deviation and congestion present. Right Turbinates: Swollen. Cardiovascular: Rate and Rhythm: Normal rate and regular rhythm. Pulmonary: Breath sounds: Normal breath sounds. Musculoskeletal: Right lower leg: No edema. Left lower leg: No edema. Neurological: Mental Status: He is alert. Assessment and Plan 1. Eustachian tube dysfunction, right - ICD9: 381.81, ICD10: H69.81 (primary diagnosis) He will use FLONASE daily, not prn. 2. Primary hypertension - ICD9: 401.9, ICD10: I10 - suboptimal control - LISINOPRIL 20 MG-HYDROCHLOROTHIAZIDE 12.5 MG TABLET. Increase to one tablet daily. Message with home BP readings in 1-2 weeks. 3. 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) - ICD9: 415.19, ICD10: I26.99 Dose changed. 10 mg Mondays thru Fridays. 7.5 mg Thu and Sundays. .See AC encounter. - WARFARIN 5 MG TABLET Franc Hills MD documented in this encounter [facility] 08-20-2021 Miscellaneous Notes Noted. Pt calling to report he tested NEG on a government issued home covid this this am. Pt is asymptomatic but tested himself because he is around many nurses. Corrina Velarde LPN documented in this encounter [facility] 08-16-2021 Instructions Mj Dos Santos MD - 08/16/2021 1:48 PM EDT 1) Continue current medications 2) Encourage physical activity - 30mins x 5 times a week 3) Can inquire about Xarelto 10mg daily from [employer]. Maybe able to switch to that in the future documented in this encounter [facility] 08-16-2021 History of Presen t illness Narrative Images from the original note were not included. [facility] Department of Cardiovascular Medicine SECTION OF CLINICAL CARDIOLOGY OUTPATIENT VISIT DATE August 15, 2021 OUTPATIENT VISIT TYPE ESTABLISHED PRIMARY CARE PHYSICIAN: Franc Hills [address] [place] [address] REFERRING PHYSICIAN: Mj Dos Santos [address] [facility] [address] CHIEF COMPLAINT: Multisite atherosclerotic disease HISTORY OF PRESENT ILLNESS: Mr. Brooks is a 75 year old male with a past cardiovascular history significant for 1) carotid artery stenosis status post left CEA in 06/2019, 20 to 39% stenosis in the right ICA 2) peripheral artery disease -mild disease at rest 01/2020 3) presumed coronary artery disease no recent coronary angiogram, however, fixed defect noted on SPECT 06/2019 4) known left bundle branch block 5) recurrent pulmonary embolism (2011, 2014) on long-term anticoagulation with warfarin Since our last visit, patient has intentionally lost 20+ pounds. He has done that predominantly by calorie counting. With this, his antihypertensive medications have been down titrated. Most recently, home systolic blood pressures have been largely less than 130 mmHg. No lightheadedness or dizziness. No chest pain or chest pressure. No significant shortness of breath. No orthopnea or paroxysmal nocturnal dyspnea. No significant bleeding episodes. Specifically, no hematochezia or melena. 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 Carotid stenosis, left 02/21/2019 s/p CEA Closed nondisplaced fracture of distal phalanx of right great toe 01/16/2021 Colonic polyp 11/29/2018 DDD (degenerative disc disease), lumbar 03/08/2014 Elevated prostate specific antigen (PSA) 09/15/2016 Esophageal reflux Fall at home 01/05/2018 Right Rib Fracture Hypertension Hypertrophy of prostate with urinary obstruction and other lower urinary tract symptoms (LUTS) 09/04/2008 With mild night-time symptoms, exam ok as of 09/2008 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 Related to sugar? -- see fasting glucose 2008; Impaired fasting glucose 10/11/2008 Under 110; See labs 10/12 INSOMNIA NOS 09/04/2008 Doing well with as-needed benzo at night Left bundle branch block 05/28/2010 Lumbago 02/23/2009 Lumbosacral spondylosis without myelopathy 08/07/2011 Lung disease [place] Fever Mixed hyperlipidemia 10/05/2008 Neuropathy PE (pulmonary embolism) 09/04/2011 Peripheral vascular disease (HCC) Perirectal abscess 12/12/2008 Postconcussion syndrome 11/11/2011 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) 05/08/2014 Traumatic intracerebral hemorrhage (HCC) 09/26/2011 Ureterolithiasis 05/07/2011 PAST SURGICAL HISTORY Procedure Laterality Date CAROTID ENDARTERECTOMY Left 06/10/2019 Left CEA, bovine patch angioplasty COLONOSCOPY FLX DX W/COLLJ SPEC WHEN PFRMD 11/10/08 COLONSCOPY W/DECOMPRESS 11/29/2018 EGD TRANSORAL BIOPSY SINGLE/MULTIPLE 11/10/08 EXTRACTION, ERUPTED TOOTH OR EXPOSED ROOT (ELEVATION AND/OR FORCEPS REMOVAL) 1974 wisdom teeth F COLONOSCOPY WITH BIOPSY 11/29/2018 PAST SURGICAL HISTORY OF Left 1956 complex lac left hand, as a child PAST SURGICAL HISTORY OF 05-04-2013 Pars plana vitrectomy. TRANSCATH RETRIEVAL,PERCUT 09-20-12 IVC filter retrieval TRIESENCE INTRAVITREAL INJECTION OS (LEFT EYE) 10-25-13 VENA CAVA FILTER 09/26/2011 later removed SOCIAL HISTORY Social History Tobacco Use Smoking status: Former Smoker Packs/day: 1.00 Years: 20.00 Pack years: 20.00 Types: Cigarettes Quit date: 04/06/1980 Years since quittin.3 Smokeless tobacco: Never Used Vaping Use Vaping Use: Never used Substance Use Topics Alcohol use: Not Currently Alcohol/week: 37.5 standard drinks Types: 15 Glasses of Wine (5oz) per week Comment: CAGE negative. Drug use: Yes Types: Marijuana FAMILY HISTORY Problem Relation Age of Onset Hypertension Mother (longevity on mom's side) Cataract Mother Coronary Artery Disease Father father who of sudden cardiac arrest age 74 Heart Father heart stopped Blood Disease Brother pulmonary embolism history No Known Problems Maternal Grandmother No Known Problems Maternal Grandfather No Known Problems Paternal Grandmother Heart Paternal Grandfather Colon Cancer Other no close relatives known Prostate Cancer Other none Emphysema Other none ALLERGIES: ALLERGIES Allergen Reactions Coumadin [Warfarin] Rash Patient reports a rash when patient is on coumadin and any antibiotic is prescribed Keflex [Cephalexin] Rash MEDICATIONS: vitamin B complex (B COMPLEX 1 ORAL) B Complex With Vitamin C Active 1 EA DAILY May 08, 2014 12:26pm oxyCODONE-acetaminophen (PERCOCET) 5-325 mg tablet Take 1 tablet by mouth every 4 hours as needed for pain for up to 7 days. lisinopril-hydroCHLOROthiazide (PRINZIDE,ZESTORETIC) 20-12.5 mg per tablet Take 0.5 tablets by mouth once daily. Patient is taking 1/2 tablet once daily. warfarin (COUMADIN) 5 mg tablet Take 2 tabs daily LORazepam (ATIVAN) 2 mg tab Take 1 tablet by mouth at bedtime as needed (insomnia) for up to 180 days. potassium chloride SR (MICRO-K) 10 mEq CR capsule Take 1 capsule by mouth twice daily. famotidine (PEPCID) 40 mg tablet Take 1 tablet by mouth once daily as needed. rosuvastatin (CRESTOR) 20 mg tablet Take 1 tablet by mouth once daily. magnesium oxide 400 mg magnesium cap Take 1 capsule by mouth once daily. cholecalciferol, vitamin D3, (VITAMIN D3 ORAL) Take 3,000 Units by mouth once daily. SAW PALMETTO ORAL Take 400 mg by mouth twice daily. coenzyme Q10 (COENZYME Q-10) 100 mg cap capsule Take 400 mg by mouth once daily. aspirin, enteric coated (ASPIRIN LOW DOSE) 81 mg EC tablet Take 1 tablet by mouth once daily. Cyanocobalamin (VITAMIN B-12) 2,500 mcg subl Dissolve under the tongue twice daily. calcium, elemental, tab Take 600 mg by mouth twice daily. multivitamin (SOFYA MULTIVITAMIN) tablet Take 1 tablet by mouth once daily. Ascorbic Acid (VITAMIN C) 1,000 mg tablet Take 1 tablet by mouth once daily. B Complex Vitamins (SUPER B-50 COMPLEX) capsule Take 1 capsule by mouth once daily. fluticasone (FLONASE) 50 mcg/actuation nasal spray Use 2 Sprays in each nostril once daily. Rinse mouth after use. REVIEW OF SYSTEMS: Positives in bold GENERAL: Negative for: Weight loss or gain, Fever or Chills, Weakness and Sleep difficulties. HEENT: Negative for: Headache, Impaired Vision, Glasses, Hearing Impairment, Ringing in Ears, Nosebleeds, Poor dental care, Bleeding Gums, Dentures NECK: Negative for: Swelling, Pain, Stiffness RESPIRATORY: Negative for: Cough, Blood in Sputum, Shortness of breath, Wheezing, Apnea GASTROINTESTINAL: Negative for: Trouble swallowing, Heartburn, Change in bowel habits, Blood in stool, Dark black stools MUSCULOSKELETAL: Negative for: Muscle or joint pain, Stiffness , Joint swelling NEUROLOGIC/PSYCHIATRIC: Negative for: Weakness, Paralysis, Numbness, Tingling, Tremor, Nervousness, Depressed mood, Memory loss SKIN: Negative for: Rashes, Itching HEMATOLOGICAL/LYMPHATIC: Negative for: Easy bruising , Easy bleeding ENDOCRINE: Negative for: Heat or cold intolerance, Excessive sweating, Frequent urination, Frequent thirst PHYSICAL EXAMINATION: BP 141/73 (BP Site: Left Arm) Pulse 63 Ht 185.4 cm (6' 1) Wt 81.2 kg (179 lb) SpO2 97% BMI 23.62 kg/m General: Well appearing, in no acute distress. Skin: No clubbing, no cyanosis. Neck: No jugular venous distention, no carotid bruits, carotids have a normal upstroke, no palpable thyromegaly. Lungs: Clear to auscultation bilaterally, no wheezing or rhonchi. Heart: Regular rhythm, PMI not displaced, S1, S2 normal, no S3, no S4, no heaves, no rub and no murmur. Abdomen: Soft, nontender, bowel sounds normal, no palpable organomegaly, no bruits. Extremities: No peripheral edema . Grade 2+ distal pulses bilaterally. Neuro: Oriented to person, place and time, alert, cooperative, gait coordinated. CARDIOVASCULAR MEDICINE TESTING: Last ECHO Result Conclusion ECHO Collected: 04/16/2021 11:06 AM (Final result) Impression: CONCLUSIONS: - Technically difficult exam due to body habitus. - Exam indication: Hypertension - The left ventricle is normal in size. Left ventricular systolic function is normal. EF = 55 5% (visual est.) Grade I left ventricular diastolic dysfunction. - The right ventricle is normal in size. Right ventricular systolic function is normal. - No significant valvular disease - Exam was compared with the prior echocardiographic exam performed on 09/18/2011. * * * Final * * * Complete Results Last EKG Result Conclusion ECG COMPLETE Collected: 03/01/2021 12:29 PM (Final result) Impression: NORMAL SINUS RHYTHM COMPLETE LEFT BUNDLE BRANCH BLOCK ABNORMAL ECG Confirmed by RAMON LINCOLN, LEEANN ([id number]) on 03/12/2021 11:59:07 AM Complete Results Component Latest Ref Rng & Units 04/16/2021 07/24/2021 08/07/2021 Glucose 74 - 99 mg/dL 106 (H) BUN 9 - 24 mg/dL 13 Creatinine 0.73 - 1.22 mg/dL 0.91 Sodium 136 - 144 mmol/L 138 Potassium 3.7 - 5.1 mmol/L 4.1 Chloride 97 - 105 mmol/L 104 CO2 22 - 30 mmol/L 23 Anion Gap 9 - 18 mmol/L 11 Calcium 8.5 - 10.2 mg/dL 9.5 eGFR- >60 eGFR-All Other Races . >60 PT Sec 9.7 - 13.0 sec 19.7 (H) 21.1 (H) PT INR 0.9 - 1.3 1.9 (H) 2.1 (H) I have personally reviewed the Laboratory Testing. IMPRESSION: Mr. Brooks is a 75 year old male with multi-site atherosclerotic disease -carotid, lower extremity arterial and presumed coronary along with recurrent venous thromboembolism here for follow-up. Patient is currently doing well. Blood pressure well controlled on his current medical regimen. No trouble taking his statin medications either. No limitations of physical activity. Since our last visit, patient inquired about Eliquis and cost would be prohibitive at this time. He will inquire about rivaroxaban. He may benefit from switching to extended duration low-dose rivaroxaban 10 mg daily for convenience. Follow-up with me in 1 year. PLAN AND RECOMMENDATIONS: 1) aspirin 81 mg, rosuvastatin 20 mg 2) half tablet of lisinopril/hydrochlorothiazide 3) warfarin target INR 2 3. Can inquire about costs for rivaroxaban 10mg daily 4) follow-up in 1 year with repeat labs CONTACT INFORMATION: Mj Dos Santos MD, MS, [facility] Department of Cardiovascular Medicine [address], [place] [address] Appointments: (Cardiology); (Vascular Medicine) This note was dictated using a voice recognition software. Please excuse any inadvertent typographical/grammatical/syntax errors that may have escaped the final proofread. Please don't hesitate to contact my office for any clarification. documented in this encounter [facility] 08-15-2021 Miscellaneous Notes Pt notified. I don't think he can benefit from this. Patient calling with question, he gets emails from [facility]. This last email has him wondering if this may help him? It was email concerning [facility]rology [facility]. Patient is asking if it would help his balance issues with his neuropathy? Patient said can send him a my chart message back, it would be easier. He thinks the email comes from main campus. Please advise documented in this encounter [facility] 08-12-2021 Miscellaneous Notes Patient's request for medication is as follows Signed Prescriptions Disp Refills oxyCODONE-acetaminophen (PERCOCET) 5-325 mg tablet 42 tablet 0 Sig: Take 1 tablet by mouth every 4 hours as needed for pain for up to 7 days. PER Class: C-II TIM: No Authorizing Provider: FRANC HILLS MD Patient has been identified by name and date of : Yes Patient phones for refill(s): Pending Prescriptions Disp Refills OXYCODONE-ACETAMINOPHEN 5 MG-325 MG TABLET 42 tablet 0 Sig: Take 1 tablet by mouth every 4 hours as needed for pain for up to 7 days. PER Class: C-II TIM: No Date of last office visit in primary care: 07/03/21 next appt 11/13/21 Last 2 Encounter Wt Readings: Date: Wt: 07/03/2021 83.5 kg (184 lb) 05/16/2021 86.2 kg (190 lb) Please advise. Thank you. Haydee Gracia LPN documented in this encounter [facility] 08-07-2021 Miscellaneous Notes Pt called and is notified of providers message and instructions. Pt voices understanding. Cyndy Whelan RN Recommend staying with current dose since he took 7.5 mg instead of 10 mg on . Recheck in two weeks Sara Baxter APRN.CNP Last INR: INR Home CoaguChek 2.1(EXT) 08/07/2021 Current dose of coumadin is:10 mg on Thursday, Thursday, Thursday, , Thursday starting tomorrow and continue 7.5 mg on on Thursday and Saturdays . Last date of dose change: 07/24/21. Previous INR (date and result): 1.9 Additional Clinical Information or narrative: yes: Patient states that due to his diagnoses his INR is supposed to be 2.5, and he has been that in quite some time. Denies diet change, but reports he has been losing weight on purpose. Denies any unusual brusin. Pt reports that he was prescribed Cipro ear drops, but he was done with the 1 1/2 to 2 weeks ago. Pt went over what doses of Coumadin he was taking, and denies missing any doses but on was taking 7.5 mg instead of the 10 mg. documented in this encounter [facility] 07-24-2021 Miscellaneous Notes Phoned patient and given instructions below with verbalized understanding. Increase Coumadin to 10 mg on Thursday, Thursday, Thursday, , Thursday starting tomorrow and continue 7.5 mg on on Thursday and Saturdays. INR in two weeks Sara Baxter APRN.KAYLA Last INR: INR Home CoaguChek 1.9 07/24/2021 Current dose of coumadin is: 10 mg Thursday, Thu, Thu, Thursday; and 7.5 mg on Thu, Thu and SaturdaysLast date of dose change: 07/10/21 . Previous INR (date and result): 07/10/21 was 1.7 Additional Clinical Information or narrative: INR goal is 2-3. Called pt and HE SAYS HIS TARGET IS TO BE 2.5. this is what it says somewhere he sees it. In review it is with comments Comment: Vitamin K Antagonist (VKA) Therapeutic Range: INR 2 to 3 (Target INR of 2.5) Pt reports weight loss from 199 lbs to 170. The last 2-3 months he has been eating 2000 maddie or less. He is ^ veggies. documented in this encounter [facility] 07-12-2021 Miscellaneous Notes Patient notified, verbalized understanding. Joce Schmid Ma Sometimes after infection clears there can still be fluid behind the ear drum that takes longer to resolve. The fact that the pain has resolved is a good sign. I would give it another 1-2 weeks and then follow-up if it hasn't improved. Sooner if symptoms reoccur Sara Baxter APRN.DELIVERY CLERK Pt seen 07/03/21 for an ear problem. Pt states he used the ciprofloxin gtts as directed & reports there has been no change in his ear, still feels like it has water in it. The little pain/discomfort he had is gone. Per OV note, pt was to FU if sx are not improved. Appt was offered with pt's pcp tomorrow. Pt would like to wait until GRAIN SACKER returns to ofc tomorrow to get her recommendation since she saw pt for problem. Please advise. Corrina Velarde LPN documented in this encounter [facility] 07-10-2021 Miscellaneous Notes Patient notified, read back. Anticoag Tracker updated. Kari Briones LPN Increase Coumadin dose. 10 mg Thursday, Thu, Thu, Thursday; and 7.5 mg on Thu, Thu and Saturdays. INR in 2 weeks. Last INR: 07/10/21 1.7 Current dose of coumadin is: 10 mg Mon, Thu, Thursday. 7.5 mg on all other 4 days of the week Last date of dose change: 06/27/21 Previous INR (date and result): 06/27/21 1.7 Additional Clinical Information or narrative: no Please review and advise. Molly Ann RN documented in this encounter [facility] 07-03-2021 History of Presen t illness Narrative CC: Patient presents with: right ear issues: 3-5 months HPI Alex Brooks is a 75 year old male who presents today for above. Feels like there is something in his right ear. Occasional pain below in the ear into the neck, worse in the beginning. Hearing is slightly muffled. Cleaned it out with a Q tip a couple weeks ago, some brown drainage on it and the next day there was a little bit of blood. Denies fever, chills. REVIEW OF SYSTEMS See HPI 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 Carotid stenosis, left 02/21/2019 s/p CEA Closed nondisplaced fracture of distal phalanx of right great toe 01/16/2021 Colonic polyp 11/29/2018 DDD (degenerative disc disease), lumbar 03/08/2014 Elevated prostate specific antigen (PSA) 09/15/2016 Esophageal reflux Fall at home 01/05/2018 Right Rib Fracture Hypertension Hypertrophy of prostate with urinary obstruction and other lower urinary tract symptoms (LUTS) 09/04/2008 With mild night-time symptoms, exam ok as of 09/2008 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 Related to sugar? -- see fasting glucose 2008; Impaired fasting glucose 10/11/2008 Under 110; See labs 10/12 INSOMNIA NOS 09/04/2008 Doing well with as-needed benzo at night Left bundle branch block 05/28/2010 Lumbago 02/23/2009 Lumbosacral spondylosis without myelopathy 08/07/2011 Lung disease [place] Fever Mixed hyperlipidemia 10/05/2008 Neuropathy PE (pulmonary embolism) 09/04/2011 Peripheral vascular disease (HCC) Perirectal abscess 12/12/2008 Postconcussion syndrome 11/11/2011 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) 05/08/2014 Traumatic intracerebral hemorrhage (HCC) 09/26/2011 Ureterolithiasis 05/07/2011 PAST SURGICAL HISTORY Procedure Laterality Date CAROTID ENDARTERECTOMY Left 06/10/2019 Left CEA, bovine patch angioplasty COLONOSCOPY FLX DX W/COLLJ SPEC WHEN PFRMD 11/10/08 COLONSCOPY W/DECOMPRESS 11/29/2018 EGD TRANSORAL BIOPSY SINGLE/MULTIPLE 11/10/08 EXTRACTION, ERUPTED TOOTH OR EXPOSED ROOT (ELEVATION AND/OR FORCEPS REMOVAL) 1974 wisdom teeth F COLONOSCOPY WITH BIOPSY 11/29/2018 PAST SURGICAL HISTORY OF Left 1956 complex lac left hand, as a child PAST SURGICAL HISTORY OF 05-04-2013 Pars plana vitrectomy. TRANSCATH RETRIEVAL,PERCUT 09-20-12 IVC filter retrieval TRIESENCE INTRAVITREAL INJECTION OS (LEFT EYE) 10-25-13 VENA CAVA FILTER 09/26/2011 later removed ALLERGIES Coumadin [Warfarin] and Keflex [Cephalexin] MEDICATIONS lisinopril-hydroCHLOROthiazide (PRINZIDE,ZESTORETIC) 20-12.5 mg per tablet Take 0.5 tablets by mouth once daily. Patient is taking 1/2 tablet once daily. oxyCODONE-acetaminophen (PERCOCET) 5-325 mg tablet Take 1 tablet by mouth every 4 hours as needed for pain for up to 7 days. warfarin (COUMADIN) 5 mg tablet Take 2 tabs daily LORazepam (ATIVAN) 2 mg tab Take 1 tablet by mouth at bedtime as needed (insomnia) for up to 180 days. potassium chloride SR (MICRO-K) 10 mEq CR capsule Take 1 capsule by mouth twice daily. famotidine (PEPCID) 40 mg tablet Take 1 tablet by mouth once daily as needed. rosuvastatin (CRESTOR) 20 mg tablet Take 1 tablet by mouth once daily. magnesium oxide 400 mg magnesium cap Take 1 capsule by mouth once daily. cholecalciferol, vitamin D3, (VITAMIN D3 ORAL) Take 3,000 Units by mouth once daily. SAW PALMETTO ORAL Take 400 mg by mouth twice daily. coenzyme Q10 (COENZYME Q-10) 100 mg cap capsule Take 400 mg by mouth once daily. fluticasone (FLONASE) 50 mcg/actuation nasal spray Use 2 Sprays in each nostril once daily. Rinse mouth after use. aspirin, enteric coated (ASPIRIN LOW DOSE) 81 mg EC tablet Take 1 tablet by mouth once daily. Cyanocobalamin (VITAMIN B-12) 2,500 mcg subl Dissolve under the tongue twice daily. calcium, elemental, tab Take 600 mg by mouth once daily. multivitamin (SOFYA MULTIVITAMIN) tablet Take 1 tablet by mouth once daily. Ascorbic Acid (VITAMIN C) 1,000 mg tablet Take 1 tablet by mouth once daily. B Complex Vitamins (SUPER B-50 COMPLEX) capsule Take 1 capsule by mouth once daily. FAMILY HISTORY Problem Relation Age of Onset Hypertension Mother (longevity on mom's side) Cataract Mother Coronary Artery Disease Father father who of sudden cardiac arrest age 74 Heart Father heart stopped Blood Disease Brother pulmonary embolism history No Known Problems Maternal Grandmother No Known Problems Maternal Grandfather No Known Problems Paternal Grandmother Heart Paternal Grandfather Colon Cancer Other no close relatives known Prostate Cancer Other none Emphysema Other none Social History Tobacco Use Smoking status: Former Smoker Packs/day: 1.00 Years: 20.00 Pack years: 20.00 Types: Cigarettes Quit date: 04/06/1980 Years since quittin.2 Smokeless tobacco: Never Used Vaping Use Vaping Use: Never used Substance Use Topics Alcohol use: Not Currently Alcohol/week: 37.5 standard drinks Types: 15 Glasses of Wine (5oz) per week Comment: CAGE negative. Drug use: Yes Types: Marijuana PHYSICAL EXAM BP 112/62 Pulse 66 Resp 16 Wt 83.5 kg (184 lb) SpO2 97% BMI 24.28 kg/m General Appearance: well appearing, in no acute distress, alert Ears: Left external ear and canal clear, Left tympanic membrane normal. Right external ear and canal clear except for small abrasion, no bleeding. Right TM: purulent material noted behind TM ASSESSMENT/PLAN: 1. Suppurative otitis media of right ear, unspecified chronicity - ICD9: 382.4, ICD10: H66.41 Acute vs chronic. Due to Coumadin will start with topical antibiotics, see orders. Follow-up in 1-2 weeks if no improvement or sooner if worsening Prescription instructions reviewed with patient as applicable. Potential red flag symptoms discussed with the patient. Reviewed appropriate action plan to take if red flag symptoms occur. Patient agreeable to treatment plan. Sara Baxter APRN.KAYLA documented in this encounter [facility] 06-27-2021 Miscellaneous Notes Patient notified of dosage change, he read back. Anticoag Tracker updated. Kari Briones LPN Increase Coumadin dose. 10 mg Thu, Thu, Thursday. 7.5 mg on all other 4 days of the week. INR in 2 weeks. Last INR: INR Home CoaguChek 1.7 06/27/2021 Current dose of coumadin is: 10 mg on Thursday and Thursday and 7.5 mg all other days. Last date of dose change: 05/22/21 . Previous INR (date and result): 06/19/21 was 2.0 Additional Clinical Information or narrative: INR goal is 2-3. documented in this encounter [facility] 01-16-2021 History of Past i llness Narrative Problem Noted Date Resolved Date Closed nondisplaced fracture of distal phalanx of right great toe 01/16/2021 11/13/2021 Carotid artery stenosis 06/10/2019 06/11/19 20 Overview: History: history of left carotid stenosis, s/p carotid endarterectomy with bovine patch angioplasty on 06/09. Assessment: incision c/d/i, pain and blood pressure well controlled Plan: - discharge today Elevated prostate specific antigen (PSA) 017 10/21/2017 Osteoarthritis of lumbar spine 12/19/2015 0 04/20/2017 Chronic cough 10/04/2015 05/05/2016 Chronic rhinitis 10/04/2015 04/20/2017 Leg cramps 03/31/2014 10/11/2014 DDD (degenerative disc disease), lumbar 03/08/20 14 04/20/2017 Lens replaced by other means 07/05/2013 History of deep venous thrombosis 09/07/2012 05/17/2013 Rectal bleeding 06/30/2012 08/16/2012 PE (pulmonary embolism) 09/04/2011 04/13/19 13 Degeneration of lumbar or lumbosacral interverte bral disc 08/07/2011 04/13/2012 Lumbosacral spondylosis without myelopathy 08/0610/21/2017 Ureterolithiasis 05/07/2011 04/13/2012 Overview: Right side. Lumbar facet arthropathy 05/05/2011 013 DDD (degenerative disc disease), lumbar 05/05/19 12 04/13/2012 Lumbar spondylosis 05/05/2011 04/13/2012 Left bundle branch block 05/28/2010 014 Perirectal abscess 08/10/2009 05/28/2010 Esophageal reflux 11/10/2008 10/11/2014 Impaired fasting glucose 10/11/2008 013 Overview: Under 110; See labs 10/12 Nonspecific abnormal results of liver function s tudy 10/05/2008 04/28/2011 Overview: ? Due to high-moderate alcohol intake documented as of this encounter (statuses as of 11/14/2021) [facility]21 History of Past illness Narrative* Problem Noted Date Resolved Date Closed nondisplaced fracture of distal phalanx of right great toe 01/16/2021 11/13/2021 Carotid artery stenosis 06/10/2019 06/11/19 20 Overview: History: history of left carotid stenosis, s/p carotid endarterectomy with bovine patch angioplasty on 06/09. Assessment: incision c/d/i, pain and blood pressure well controlled Plan: - discharge today Elevated prostate specific antigen (PSA) 017 10/21/2017 Osteoarthritis of lumbar spine 12/19/2015 0 04/20/2017 Chronic cough 10/04/2015 05/05/2016 Chronic rhinitis 10/04/2015 04/20/2017 Leg cramps 03/31/2014 10/11/2014 DDD (degenerative disc disease), lumbar 03/08/20 14 04/20/2017 Lens replaced by other means 07/05/2013 History of deep venous thrombosis 09/07/2012 05/17/2013 Rectal bleeding 06/30/2012 08/16/2012 PE (pulmonary embolism) 09/04/2011 04/13/19 13 Degeneration of lumbar or lumbosacral interverte bral disc 08/07/2011 04/13/2012 Lumbosacral spondylosis without myelopathy 08/0610/21/2017 Ureterolithiasis 05/07/2011 04/13/2012 Overview: Right side. Lumbar facet arthropathy 05/05/2011 013 DDD (degenerative disc disease), lumbar 05/05/19 12 04/13/2012 Lumbar spondylosis 05/05/2011 04/13/2012 Left bundle branch block 05/28/2010 014 Perirectal abscess 08/10/2009 05/28/2010 Esophageal reflux 11/10/2008 10/11/2014 Impaired fasting glucose 10/11/2008 013 Overview: Under 110; See labs 10/12 Nonspecific abnormal results of liver function s tudy 10/05/2008 04/28/2011 Overview: ? Due to high-moderate alcohol intake documented as of this encounter (statuses as of 11/14/2021) [facility] History of Past illness Narrative* Problem Noted Date Resolved Date Closed nondisplaced fracture of distal phalanx of right great toe 01/16/2021 11/13/2021 Carotid artery stenosis 06/10/2019 06/11/19 20 Overview: History: history of left carotid stenosis, s/p carotid endarterectomy with bovine patch angioplasty on 06/09. Assessment: incision c/d/i, pain and blood pressure well controlled Plan: - discharge today Elevated prostate specific antigen (PSA) 017 10/21/2017 Osteoarthritis of lumbar spine 12/19/2015 0 04/20/2017 Chronic cough 10/04/2015 05/05/2016 Chronic rhinitis 10/04/2015 04/20/2017 Leg cramps 03/31/2014 10/11/2014 DDD (degenerative disc disease), lumbar 03/08/20 14 04/20/2017 Lens replaced by other means 07/05/2013 History of deep venous thrombosis 09/07/2012 05/17/2013 Rectal bleeding 06/30/2012 08/16/2012 PE (pulmonary embolism) 09/04/2011 04/13/19 13 Degeneration of lumbar or lumbosacral interverte bral disc 08/07/2011 04/13/2012 Lumbosacral spondylosis without myelopathy 08/0610/21/2017 Ureterolithiasis 05/07/2011 04/13/2012 Overview: Right side. Lumbar facet arthropathy 05/05/2011 013 DDD (degenerative disc disease), lumbar 05/05/19 12 04/13/2012 Lumbar spondylosis 05/05/2011 04/13/2012 Left bundle branch block 05/28/2010 014 Perirectal abscess 08/10/2009 05/28/2010 Esophageal reflux 11/10/2008 10/11/2014 Impaired fasting glucose 10/11/2008 013 Overview: Under 110; See labs 10/12 Nonspecific abnormal results of liver function s tudy 10/05/2008 04/28/2011 Overview: ? Due to high-moderate alcohol intake documented as of this encounter (statuses as of 11/25/2021) [facility] History of Past illness Narrative* Problem Noted Date Resolved Date Closed nondisplaced fracture of distal phalanx of right great toe 01/16/2021 11/13/2021 Carotid artery stenosis 06/10/2019 06/11/19 20 Overview: History: history of left carotid stenosis, s/p carotid endarterectomy with bovine patch angioplasty on 06/09. Assessment: incision c/d/i, pain and blood pressure well controlled Plan: - discharge today Elevated prostate specific antigen (PSA) 017 10/21/2017 Osteoarthritis of lumbar spine 12/19/2015 0 04/20/2017 Chronic cough 10/04/2015 05/05/2016 Chronic rhinitis 10/04/2015 04/20/2017 Leg cramps 03/31/2014 10/11/2014 DDD (degenerative disc disease), lumbar 03/08/20 14 04/20/2017 Lens replaced by other means 07/05/2013 History of deep venous thrombosis 09/07/2012 05/17/2013 Rectal bleeding 06/30/2012 08/16/2012 PE (pulmonary embolism) 09/04/2011 04/13/19 13 Degeneration of lumbar or lumbosacral interverte bral disc 08/07/2011 04/13/2012 Lumbosacral spondylosis without myelopathy 08/0610/21/2017 Ureterolithiasis 05/07/2011 04/13/2012 Overview: Right side. Lumbar facet arthropathy 05/05/2011 013 DDD (degenerative disc disease), lumbar 05/05/19 12 04/13/2012 Lumbar spondylosis 05/05/2011 04/13/2012 Left bundle branch block 05/28/2010 014 Perirectal abscess 08/10/2009 05/28/2010 Esophageal reflux 11/10/2008 10/11/2014 Impaired fasting glucose 10/11/2008 013 Overview: Under 110; See labs 10/12 Nonspecific abnormal results of liver function s tudy 10/05/2008 04/28/2011 Overview: ? Due to high-moderate alcohol intake documented as of this encounter (statuses as of 11/27/2021) [facility] History of Past illness Narrative* Problem Noted Date Resolved Date Closed nondisplaced fracture of distal phalanx of right great toe 01/16/2021 11/13/2021 Carotid artery stenosis 06/10/2019 03/07/20 20 Overview: History: history of left carotid stenosis, s/p carotid endarterectomy with bovine patch angioplasty on 06/09. Assessment: incision c/d/i, pain and blood pressure well controlled Plan: - discharge today Elevated prostate specific antigen (PSA) 017 10/21/2017 Osteoarthritis of lumbar spine 12/19/2015 0 04/20/2017 Chronic cough 10/04/2015 05/05/2016 Chronic rhinitis 10/04/2015 04/20/2017 Leg cramps 03/31/2014 10/11/2014 DDD (degenerative disc disease), lumbar 03/08/20 14 04/20/2017 Lens replaced by other means 07/05/2013 History of deep venous thrombosis 09/07/2012 05/17/2013 Rectal bleeding 06/30/2012 08/16/2012 PE (pulmonary embolism) 09/04/2011 04/13/19 13 Degeneration of lumbar or lumbosacral interverte bral disc 08/07/2011 04/13/2012 Lumbosacral spondylosis without myelopathy 08/0610/21/2017 Ureterolithiasis 05/07/2011 04/13/2012 Overview: Right side. Lumbar facet arthropathy 05/05/2011 013 DDD (degenerative disc disease), lumbar 05/05/19 12 04/13/2012 Lumbar spondylosis 05/05/2011 04/13/2012 Left bundle branch block 05/28/2010 014 Perirectal abscess 08/10/2009 05/28/2010 Esophageal reflux 11/10/2008 10/11/2014 Impaired fasting glucose 10/11/2008 013 Overview: Under 110; See labs 10/12 Nonspecific abnormal results of liver function s tudy 10/05/2008 04/28/2011 Overview: ? Due to high-moderate alcohol intake documented as of this encounter (statuses as of 11/28/2021) [facility] History of Past illness Narrative* Problem Noted Date Resolved Date Closed nondisplaced fracture of distal phalanx of right great toe 01/16/2021 11/13/2021 Carotid artery stenosis 06/10/2019 06/11/19 20 Overview: History: history of left carotid stenosis, s/p carotid endarterectomy with bovine patch angioplasty on 06/09. Assessment: incision c/d/i, pain and blood pressure well controlled Plan: - discharge today Elevated prostate specific antigen (PSA) 017 10/21/2017 Osteoarthritis of lumbar spine 12/19/2015 0 04/20/2017 Chronic cough 10/04/2015 05/05/2016 Chronic rhinitis 10/04/2015 04/20/2017 Leg cramps 03/31/2014 10/11/2014 DDD (degenerative disc disease), lumbar 03/08/20 14 04/20/2017 Lens replaced by other means 07/05/2013 History of deep venous thrombosis 09/07/2012 05/17/2013 Rectal bleeding 06/30/2012 08/16/2012 PE (pulmonary embolism) 09/04/2011 04/13/19 13 Degeneration of lumbar or lumbosacral interverte bral disc 08/07/2011 04/13/2012 Lumbosacral spondylosis without myelopathy 08/0610/21/2017 Ureterolithiasis 05/07/2011 04/13/2012 Overview: Right side. Lumbar facet arthropathy 05/05/2011 013 DDD (degenerative disc disease), lumbar 05/05/19 12 04/13/2012 Lumbar spondylosis 05/05/2011 04/13/2012 Left bundle branch block 05/28/2010 014 Perirectal abscess 08/10/2009 05/28/2010 Esophageal reflux 11/10/2008 10/11/2014 Impaired fasting glucose 10/11/2008 013 Overview: Under 110; See labs 10/12 Nonspecific abnormal results of liver function s tudy 10/05/2008 04/28/2011 Overview: ? Due to high-moderate alcohol intake documented as of this encounter (statuses as of 12/10/2021) [facility] History of Past illness Narrative* Problem Noted Date Resolved Date Closed nondisplaced fracture of distal phalanx of right great toe 01/16/2021 11/13/2021 Carotid artery stenosis 06/10/2019 06/11/19 20 Overview: History: history of left carotid stenosis, s/p carotid endarterectomy with bovine patch angioplasty on 06/09. Assessment: incision c/d/i, pain and blood pressure well controlled Plan: - discharge today Elevated prostate specific antigen (PSA) 017 10/21/2017 Osteoarthritis of lumbar spine 12/19/2015 0 04/20/2017 Chronic cough 10/04/2015 05/05/2016 Chronic rhinitis 10/04/2015 04/20/2017 Leg cramps 03/31/2014 10/11/2014 DDD (degenerative disc disease), lumbar 03/08/20 14 04/20/2017 Lens replaced by other means 07/05/2013 History of deep venous thrombosis 09/07/2012 05/17/2013 Rectal bleeding 06/30/2012 08/16/2012 PE (pulmonary embolism) 09/04/2011 04/13/19 13 Degeneration of lumbar or lumbosacral interverte bral disc 08/07/2011 04/13/2012 Lumbosacral spondylosis without myelopathy 08/0610/21/2017 Ureterolithiasis 05/07/2011 04/13/2012 Overview: Right side. Lumbar facet arthropathy 05/05/2011 013 DDD (degenerative disc disease), lumbar 05/05/19 12 04/13/2012 Lumbar spondylosis 05/05/2011 04/13/2012 Left bundle branch block 05/28/2010 014 Perirectal abscess 08/10/2009 05/28/2010 Esophageal reflux 11/10/2008 10/11/2014 Impaired fasting glucose 10/11/2008 013 Overview: Under 110; See labs 10/12 Nonspecific abnormal results of liver function s ritchie 10/05/2008 04/28/2011 Overview: ? Due to high-moderate alcohol intake documented as of this encounter (statuses as of 12/11/2021) [facility] History of Past illness Narrative* Problem Noted Date Resolved Date Closed nondisplaced fracture of distal phalanx of right great toe 01/16/2021 11/13/2021 Carotid artery stenosis 06/10/2019 06/11/19 20 Overview: History: history of left carotid stenosis, s/p carotid endarterectomy with bovine patch angioplasty on 06/09. Assessment: incision c/d/i, pain and blood pressure well controlled Plan: - discharge today Elevated prostate specific antigen (PSA) 017 10/21/2017 Osteoarthritis of lumbar spine 12/19/2015 0 04/20/2017 Chronic cough 10/04/2015 05/05/2016 Chronic rhinitis 10/04/2015 04/20/2017 Leg cramps 03/31/2014 10/11/2014 DDD (degenerative disc disease), lumbar 03/08/20 14 04/20/2017 Lens replaced by other means 07/05/2013 History of deep venous thrombosis 09/07/2012 05/17/2013 Rectal bleeding 06/30/2012 08/16/2012 PE (pulmonary embolism) 09/04/2011 04/13/19 13 Degeneration of lumbar or lumbosacral interverte bral disc 08/07/2011 04/13/2012 Lumbosacral spondylosis without myelopathy 08/0610/21/2017 Ureterolithiasis 05/07/2011 04/13/2012 Overview: Right side. Lumbar facet arthropathy 05/05/2011 013 DDD (degenerative disc disease), lumbar 05/05/19 12 04/13/2012 Lumbar spondylosis 05/05/2011 04/13/2012 Left bundle branch block 05/28/2010 014 Perirectal abscess 08/10/2009 05/28/2010 Esophageal reflux 11/10/2008 10/11/2014 Impaired fasting glucose 10/11/2008 013 Overview: Under 110; See labs 10/12 Nonspecific abnormal results of liver function s tudy 10/05/2008 04/28/2011 Overview: ? Due to high-moderate alcohol intake documented as of this encounter (statuses as of 12/12/2021) [facility] History of Past illness Narrative* Problem Noted Date Resolved Date Closed nondisplaced fracture of distal phalanx of right great toe 01/16/2021 11/13/2021 Carotid artery stenosis 06/10/2019 06/11/19 20 Overview: History: history of left carotid stenosis, s/p carotid endarterectomy with bovine patch angioplasty on 06/09. Assessment: incision c/d/i, pain and blood pressure well controlled Plan: - discharge today Elevated prostate specific antigen (PSA) 017 10/21/2017 Osteoarthritis of lumbar spine 12/19/2015 0 04/20/2017 Chronic cough 10/04/2015 05/05/2016 Chronic rhinitis 10/04/2015 04/20/2017 Leg cramps 03/31/2014 10/11/2014 DDD (degenerative disc disease), lumbar 03/08/20 14 04/20/2017 Lens replaced by other means 07/05/2013 History of deep venous thrombosis 09/07/2012 05/17/2013 Rectal bleeding 06/30/2012 08/16/2012 PE (pulmonary embolism) 09/04/2011 04/13/19 13 Degeneration of lumbar or lumbosacral interverte bral disc 08/07/2011 04/13/2012 Lumbosacral spondylosis without myelopathy 08/0610/21/2017 Ureterolithiasis 05/07/2011 04/13/2012 Overview: Right side. Lumbar facet arthropathy 05/05/2011 013 DDD (degenerative disc disease), lumbar 05/05/19 12 04/13/2012 Lumbar spondylosis 05/05/2011 04/13/2012 Left bundle branch block 05/28/2010 014 Perirectal abscess 08/10/2009 05/28/2010 Esophageal reflux 11/10/2008 10/11/2014 Impaired fasting glucose 10/11/2008 013 Overview: Under 110; See labs 10/12 Nonspecific abnormal results of liver function s tudy 10/05/2008 04/28/2011 Overview: ? Due to high-moderate alcohol intake documented as of this encounter (statuses as of 12/17/2021) [facility] History of Past illness Narrative* Problem Noted Date Resolved Date Closed nondisplaced fracture of distal phalanx of right great toe 01/16/2021 11/13/2021 Carotid artery stenosis 06/10/2019 06/11/19 20 Overview: History: history of left carotid stenosis, s/p carotid endarterectomy with bovine patch angioplasty on 06/09. Assessment: incision c/d/i, pain and blood pressure well controlled Plan: - discharge today Elevated prostate specific antigen (PSA) 017 10/21/2017 Osteoarthritis of lumbar spine 12/19/2015 0 04/20/2017 Chronic cough 10/04/2015 05/05/2016 Chronic rhinitis 10/04/2015 04/20/2017 Leg cramps 03/31/2014 10/11/2014 DDD (degenerative disc disease), lumbar 03/08/20 14 04/20/2017 Lens replaced by other means 07/05/2013 History of deep venous thrombosis 09/07/2012 05/17/2013 Rectal bleeding 06/30/2012 08/16/2012 PE (pulmonary embolism) 09/04/2011 04/13/19 13 Degeneration of lumbar or lumbosacral interverte bral disc 08/07/2011 04/13/2012 Lumbosacral spondylosis without myelopathy 08/0610/21/2017 Ureterolithiasis 05/07/2011 04/13/2012 Overview: Right side. Lumbar facet arthropathy 05/05/2011 013 DDD (degenerative disc disease), lumbar 05/05/19 12 04/13/2012 Lumbar spondylosis 05/05/2011 04/13/2012 Left bundle branch block 05/28/2010 014 Perirectal abscess 08/10/2009 05/28/2010 Esophageal reflux 11/10/2008 10/11/2014 Impaired fasting glucose 10/11/2008 013 Overview: Under 110; See labs 10/12 Nonspecific abnormal results of liver function s ritchie 10/05/2008 04/28/2011 Overview: ? Due to high-moderate alcohol intake documented as of this encounter (statuses as of 12/17/2021) [facility] History of Past illness Narrative* Problem Noted Date Resolved Date Closed nondisplaced fracture of distal phalanx of right great toe 01/16/2021 11/13/2021 Carotid artery stenosis 06/10/2019 06/11/19 20 Overview: History: history of left carotid stenosis, s/p carotid endarterectomy with bovine patch angioplasty on 06/09. Assessment: incision c/d/i, pain and blood pressure well controlled Plan: - discharge today Elevated prostate specific antigen (PSA) 017 10/21/2017 Osteoarthritis of lumbar spine 12/19/2015 0 04/20/2017 Chronic cough 10/04/2015 05/05/2016 Chronic rhinitis 10/04/2015 04/20/2017 Leg cramps 03/31/2014 10/11/2014 DDD (degenerative disc disease), lumbar 03/08/20 14 04/20/2017 Lens replaced by other means 07/05/2013 History of deep venous thrombosis 09/07/2012 05/17/2013 Rectal bleeding 06/30/2012 08/16/2012 PE (pulmonary embolism) 09/04/2011 04/13/19 13 Degeneration of lumbar or lumbosacral interverte bral disc 08/07/2011 04/13/2012 Lumbosacral spondylosis without myelopathy 08/0610/21/2017 Ureterolithiasis 05/07/2011 04/13/2012 Overview: Right side. Lumbar facet arthropathy 05/05/2011 013 DDD (degenerative disc disease), lumbar 05/05/19 12 04/13/2012 Lumbar spondylosis 05/05/2011 04/13/2012 Left bundle branch block 05/28/2010 014 Perirectal abscess 08/10/2009 05/28/2010 Esophageal reflux 11/10/2008 10/11/2014 Impaired fasting glucose 10/11/2008 013 Overview: Under 110; See labs 10/12 Nonspecific abnormal results of liver function s ritchie 10/05/2008 04/28/2011 Overview: ? Due to high-moderate alcohol intake documented as of this encounter (statuses as of 12/18/2021) [facility] History of Past illness Narrative* Problem Noted Date Resolved Date Closed nondisplaced fracture of distal phalanx of right great toe 01/16/2021 11/13/2021 Carotid artery stenosis 06/10/2019 06/11/19 20 Overview: History: history of left carotid stenosis, s/p carotid endarterectomy with bovine patch angioplasty on 06/09. Assessment: incision c/d/i, pain and blood pressure well controlled Plan: - discharge today Elevated prostate specific antigen (PSA) 017 10/21/2017 Osteoarthritis of lumbar spine 12/19/2015 0 04/20/2017 Chronic cough 10/04/2015 05/05/2016 Chronic rhinitis 10/04/2015 04/20/2017 Leg cramps 03/31/2014 10/11/2014 DDD (degenerative disc disease), lumbar 03/08/20 14 04/20/2017 Lens replaced by other means 07/05/2013 History of deep venous thrombosis 09/07/2012 05/17/2013 Rectal bleeding 06/30/2012 08/16/2012 PE (pulmonary embolism) 09/04/2011 04/13/19 13 Degeneration of lumbar or lumbosacral interverte bral disc 08/07/2011 04/13/2012 Lumbosacral spondylosis without myelopathy 08/0610/21/2017 Ureterolithiasis 05/07/2011 04/13/2012 Overview: Right side. Lumbar facet arthropathy 05/05/2011 013 DDD (degenerative disc disease), lumbar 05/05/19 12 04/13/2012 Lumbar spondylosis 05/05/2011 04/13/2012 Left bundle branch block 05/28/2010 014 Perirectal abscess 08/10/2009 05/28/2010 Esophageal reflux 11/10/2008 10/11/2014 Impaired fasting glucose 10/11/2008 013 Overview: Under 110; See labs 10/12 Nonspecific abnormal results of liver function s ritchie 10/05/2008 04/28/2011 Overview: ? Due to high-moderate alcohol intake documented as of this encounter (statuses as of 12/18/2021) [facility] History of Past illness Narrative* Problem Noted Date Resolved Date Closed nondisplaced fracture of distal phalanx of right great toe 01/16/2021 11/13/2021 Carotid artery stenosis 06/10/2019 06/11/19 20 Overview: History: history of left carotid stenosis, s/p carotid endarterectomy with bovine patch angioplasty on 06/09. Assessment: incision c/d/i, pain and blood pressure well controlled Plan: - discharge today Elevated prostate specific antigen (PSA) 017 10/21/2017 Osteoarthritis of lumbar spine 12/19/2015 0 04/20/2017 Chronic cough 10/04/2015 05/05/2016 Chronic rhinitis 10/04/2015 04/20/2017 Leg cramps 03/31/2014 10/11/2014 DDD (degenerative disc disease), lumbar 03/08/20 14 04/20/2017 Lens replaced by other means 07/05/2013 History of deep venous thrombosis 09/07/2012 05/17/2013 Rectal bleeding 06/30/2012 08/16/2012 PE (pulmonary embolism) 09/04/2011 04/13/19 13 Degeneration of lumbar or lumbosacral interverte bral disc 08/07/2011 04/13/2012 Lumbosacral spondylosis without myelopathy 08/0610/21/2017 Ureterolithiasis 05/07/2011 04/13/2012 Overview: Right side. Lumbar facet arthropathy 05/05/2011 013 DDD (degenerative disc disease), lumbar 05/05/19 12 04/13/2012 Lumbar spondylosis 05/05/2011 04/13/2012 Left bundle branch block 05/28/2010 014 Perirectal abscess 08/10/2009 05/28/2010 Esophageal reflux 11/10/2008 10/11/2014 Impaired fasting glucose 10/11/2008 013 Overview: Under 110; See labs 10/12 Nonspecific abnormal results of liver function s [place]ady[place] 10/05/2008 04/28/2011 Overview: ? Due to high-moderate alcohol intake documented as of this encounter (statuses as of 12/19/2021) [facility] History of Past illness Narrative* Problem Noted Date Resolved Date Closed nondisplaced fracture of distal phalanx of right great toe 01/16/2021 11/13/2021 Carotid artery stenosis 06/10/2019 06/11/19 20 Overview: History: history of left carotid stenosis, s/p carotid endarterectomy with bovine patch angioplasty on 06/09. Assessment: incision c/d/i, pain and blood pressure well controlled Plan: - discharge today Elevated prostate specific antigen (PSA) 017 10/21/2017 Osteoarthritis of lumbar spine 12/19/2015 0 04/20/2017 Chronic cough 10/04/2015 05/05/2016 Chronic rhinitis 10/04/2015 04/20/2017 Leg cramps 03/31/2014 10/11/2014 DDD (degenerative disc disease), lumbar 03/08/20 14 04/20/2017 Lens replaced by other means 07/05/2013 History of deep venous thrombosis 09/07/2012 05/17/2013 Rectal bleeding 06/30/2012 08/16/2012 PE (pulmonary embolism) 09/04/2011 04/13/19 13 Degeneration of lumbar or lumbosacral interverte bral disc 08/07/2011 04/13/2012 Lumbosacral spondylosis without myelopathy 08/0610/21/2017 Ureterolithiasis 05/07/2011 04/13/2012 Overview: Right side. Lumbar facet arthropathy 05/05/2011 013 DDD (degenerative disc disease), lumbar 05/05/19 12 04/13/2012 Lumbar spondylosis 05/05/2011 04/13/2012 Left bundle branch block 05/28/2010 014 Perirectal abscess 08/10/2009 05/28/2010 Esophageal reflux 11/10/2008 10/11/2014 Impaired fasting glucose 10/11/2008 013 Overview: Under 110; See labs 10/12 Nonspecific abnormal results of liver function s tudy 10/05/2008 04/28/2011 Overview: ? Due to high-moderate alcohol intake documented as of this encounter (statuses as of 12/26/2021) [facility] History of Past illness Narrative* Problem Noted Date Resolved Date Closed nondisplaced fracture of distal phalanx of right great toe 01/16/2021 11/13/2021 Carotid artery stenosis 06/10/2019 06/11/19 20 Overview: History: history of left carotid stenosis, s/p carotid endarterectomy with bovine patch angioplasty on 06/09. Assessment: incision c/d/i, pain and blood pressure well controlled Plan: - discharge today Elevated prostate specific antigen (PSA) 017 10/21/2017 Osteoarthritis of lumbar spine 12/19/2015 0 04/20/2017 Chronic cough 10/04/2015 05/05/2016 Chronic rhinitis 10/04/2015 04/20/2017 Leg cramps 03/31/2014 10/11/2014 DDD (degenerative disc disease), lumbar 03/08/20 14 04/20/2017 Lens replaced by other means 07/05/2013 History of deep venous thrombosis 09/07/2012 05/17/2013 Rectal bleeding 06/30/2012 08/16/2012 PE (pulmonary embolism) 09/04/2011 04/13/19 13 Degeneration of lumbar or lumbosacral interverte bral disc 08/07/2011 04/13/2012 Lumbosacral spondylosis without myelopathy 08/0610/21/2017 Ureterolithiasis 05/07/2011 04/13/2012 Overview: Right side. Lumbar facet arthropathy 05/05/2011 013 DDD (degenerative disc disease), lumbar 05/05/19 12 04/13/2012 Lumbar spondylosis 05/05/2011 04/13/2012 Left bundle branch block 05/28/2010 014 Perirectal abscess 08/10/2009 05/28/2010 Esophageal reflux 11/10/2008 10/11/2014 Impaired fasting glucose 10/11/2008 013 Overview: Under 110; See labs 10/12 Nonspecific abnormal results of liver function s tudy 10/05/2008 04/28/2011 Overview: ? Due to high-moderate alcohol intake documented as of this encounter (statuses as of 01/01/2022) [facility]21 History of Past illness Narrative* Problem Noted Date Resolved Date Closed nondisplaced fracture of distal phalanx of right great toe 01/16/2021 11/13/2021 Carotid artery stenosis 06/10/2019 06/11/19 20 Overview: History: history of left carotid stenosis, s/p carotid endarterectomy with bovine patch angioplasty on 06/09. Assessment: incision c/d/i, pain and blood pressure well controlled Plan: - discharge today Elevated prostate specific antigen (PSA) 017 10/21/2017 Osteoarthritis of lumbar spine 12/19/2015 0 04/20/2017 Chronic cough 10/04/2015 05/05/2016 Chronic rhinitis 10/04/2015 04/20/2017 Leg cramps 03/31/2014 10/11/2014 DDD (degenerative disc disease), lumbar 03/08/20 14 04/20/2017 Lens replaced by other means 07/05/2013 History of deep venous thrombosis 09/07/2012 05/17/2013 Rectal bleeding 06/30/2012 08/16/2012 PE (pulmonary embolism) 09/04/2011 04/13/19 13 Degeneration of lumbar or lumbosacral interverte bral disc 08/07/2011 04/13/2012 Lumbosacral spondylosis without myelopathy 08/0610/21/2017 Ureterolithiasis 05/07/2011 04/13/2012 Overview: Right side. Lumbar facet arthropathy 05/05/2011 013 DDD (degenerative disc disease), lumbar 05/05/19 12 04/13/2012 Lumbar spondylosis 05/05/2011 04/13/2012 Left bundle branch block 05/28/2010 014 Perirectal abscess 08/10/2009 05/28/2010 Esophageal reflux 11/10/2008 10/11/2014 Impaired fasting glucose 10/11/2008 013 Overview: Under 110; See labs 10/12 Nonspecific abnormal results of liver function s tudy 10/05/2008 04/28/2011 Overview: ? Due to high-moderate alcohol intake documented as of this encounter (statuses as of 01/02/2022) [facility] History of Past illness Narrative* Problem Noted Date Resolved Date Closed nondisplaced fracture of distal phalanx of right great toe 01/16/2021 11/13/2021 Carotid artery stenosis 06/10/2019 06/11/19 20 Overview: History: history of left carotid stenosis, s/p carotid endarterectomy with bovine patch angioplasty on 06/09. Assessment: incision c/d/i, pain and blood pressure well controlled Plan: - discharge today Elevated prostate specific antigen (PSA) 017 10/21/2017 Osteoarthritis of lumbar spine 12/19/2015 0 04/20/2017 Chronic cough 10/04/2015 05/05/2016 Chronic rhinitis 10/04/2015 04/20/2017 Leg cramps 03/31/2014 10/11/2014 DDD (degenerative disc disease), lumbar 03/08/20 14 04/20/2017 Lens replaced by other means 07/05/2013 History of deep venous thrombosis 09/07/2012 05/17/2013 Rectal bleeding 06/30/2012 08/16/2012 PE (pulmonary embolism) 09/04/2011 04/13/19 13 Degeneration of lumbar or lumbosacral interverte bral disc 08/07/2011 04/13/2012 Lumbosacral spondylosis without myelopathy 08/0610/21/2017 Ureterolithiasis 05/07/2011 04/13/2012 Overview: Right side. Lumbar facet arthropathy 05/05/2011 013 DDD (degenerative disc disease), lumbar 05/05/19 12 04/13/2012 Lumbar spondylosis 05/05/2011 04/13/2012 Left bundle branch block 05/28/2010 014 Perirectal abscess 08/10/2009 05/28/2010 Esophageal reflux 11/10/2008 10/11/2014 Impaired fasting glucose 10/11/2008 013 Overview: Under 110; See labs 10/12 Nonspecific abnormal results of liver function s tudy 10/05/2008 04/28/2011 Overview: ? Due to high-moderate alcohol intake documented as of this encounter (statuses as of 01/03/2022) [facility] History of Past illness Narrative* Problem Noted Date Resolved Date Closed nondisplaced fracture of distal phalanx of right great toe 01/16/2021 11/13/2021 Carotid artery stenosis 06/10/2019 06/11/19 20 Overview: History: history of left carotid stenosis, s/p carotid endarterectomy with bovine patch angioplasty on 06/09. Assessment: incision c/d/i, pain and blood pressure well controlled Plan: - discharge today Elevated prostate specific antigen (PSA) 017 10/21/2017 Osteoarthritis of lumbar spine 12/19/2015 0 04/20/2017 Chronic cough 10/04/2015 05/05/2016 Chronic rhinitis 10/04/2015 04/20/2017 Leg cramps 03/31/2014 10/11/2014 DDD (degenerative disc disease), lumbar 03/08/20 14 04/20/2017 Lens replaced by other means 07/05/2013 History of deep venous thrombosis 09/07/2012 05/17/2013 Rectal bleeding 06/30/2012 08/16/2012 PE (pulmonary embolism) 09/04/2011 04/13/19 13 Degeneration of lumbar or lumbosacral interverte bral disc 08/07/2011 04/13/2012 Lumbosacral spondylosis without myelopathy 08/0610/21/2017 Ureterolithiasis 05/07/2011 04/13/2012 Overview: Right side. Lumbar facet arthropathy 05/05/2011 013 DDD (degenerative disc disease), lumbar 05/05/19 12 04/13/2012 Lumbar spondylosis 05/05/2011 04/13/2012 Left bundle branch block 05/28/2010 014 Perirectal abscess 08/10/2009 05/28/2010 Esophageal reflux 11/10/2008 10/11/2014 Impaired fasting glucose 10/11/2008 013 Overview: Under 110; See labs 10/12 Nonspecific abnormal results of liver function s tudy 10/05/2008 04/28/2011 Overview: ? Due to high-moderate alcohol intake documented as of this encounter (statuses as of 01/07/2022) [facility] History of Past illness Narrative* Problem Noted Date Resolved Date Closed nondisplaced fracture of distal phalanx of right great toe 01/16/2021 11/13/2021 Carotid artery stenosis 06/10/2019 06/11/19 20 Overview: History: history of left carotid stenosis, s/p carotid endarterectomy with bovine patch angioplasty on 06/09. Assessment: incision c/d/i, pain and blood pressure well controlled Plan: - discharge today Elevated prostate specific antigen (PSA) 017 10/21/2017 Osteoarthritis of lumbar spine 12/19/2015 0 04/20/2017 Chronic cough 10/04/2015 05/05/2016 Chronic rhinitis 10/04/2015 04/20/2017 Leg cramps 03/31/2014 10/11/2014 DDD (degenerative disc disease), lumbar 03/08/20 14 04/20/2017 Lens replaced by other means 07/05/2013 History of deep venous thrombosis 09/07/2012 05/17/2013 Rectal bleeding 06/30/2012 08/16/2012 PE (pulmonary embolism) 09/04/2011 04/13/19 13 Degeneration of lumbar or lumbosacral interverte bral disc 08/07/2011 04/13/2012 Lumbosacral spondylosis without myelopathy 08/0610/21/2017 Ureterolithiasis 05/07/2011 04/13/2012 Overview: Right side. Lumbar facet arthropathy 05/05/2011 013 DDD (degenerative disc disease), lumbar 05/05/19 12 04/13/2012 Lumbar spondylosis 05/05/2011 04/13/2012 Left bundle branch block 05/28/2010 014 Perirectal abscess 08/10/2009 05/28/2010 Esophageal reflux 11/10/2008 10/11/2014 Impaired fasting glucose 10/11/2008 013 Overview: Under 110; See labs 10/12 Nonspecific abnormal results of liver function s tudy 10/05/2008 04/28/2011 Overview: ? Due to high-moderate alcohol intake documented as of this encounter (statuses as of 01/08/2022) [facility] History of Past illness Narrative* Problem Noted Date Resolved Date Closed nondisplaced fracture of distal phalanx of right great toe 01/16/2021 11/13/2021 Carotid artery stenosis 06/10/2019 06/11/19 20 Overview: History: history of left carotid stenosis, s/p carotid endarterectomy with bovine patch angioplasty on 06/09. Assessment: incision c/d/i, pain and blood pressure well controlled Plan: - discharge today Elevated prostate specific antigen (PSA) 017 10/21/2017 Osteoarthritis of lumbar spine 12/19/2015 0 04/20/2017 Chronic cough 10/04/2015 05/05/2016 Chronic rhinitis 10/04/2015 04/20/2017 Leg cramps 03/31/2014 10/11/2014 DDD (degenerative disc disease), lumbar 03/08/20 14 04/20/2017 Lens replaced by other means 07/05/2013 History of deep venous thrombosis 09/07/2012 05/17/2013 Rectal bleeding 06/30/2012 08/16/2012 PE (pulmonary embolism) 09/04/2011 04/13/19 13 Degeneration of lumbar or lumbosacral interverte bral disc 08/07/2011 04/13/2012 Lumbosacral spondylosis without myelopathy 08/0610/21/2017 Ureterolithiasis 05/07/2011 04/13/2012 Overview: Right side. Lumbar facet arthropathy 05/05/2011 013 DDD (degenerative disc disease), lumbar 05/05/19 12 04/13/2012 Lumbar spondylosis 05/05/2011 04/13/2012 Left bundle branch block 05/28/2010 014 Perirectal abscess 08/10/2009 05/28/2010 Esophageal reflux 11/10/2008 10/11/2014 Impaired fasting glucose 10/11/2008 013 Overview: Under 110; See labs 10/12 Nonspecific abnormal results of liver function s tudy 10/05/2008 04/28/2011 Overview: ? Due to high-moderate alcohol intake documented as of this encounter (statuses as of 01/15/2022) [facility] History of Past illness Narrative* Problem Noted Date Resolved Date Closed nondisplaced fracture of distal phalanx of right great toe 01/16/2021 11/13/2021 Carotid artery stenosis 06/10/2019 06/11/19 20 Overview: History: history of left carotid stenosis, s/p carotid endarterectomy with bovine patch angioplasty on 06/09. Assessment: incision c/d/i, pain and blood pressure well controlled Plan: - discharge today Elevated prostate specific antigen (PSA) 017 10/21/2017 Osteoarthritis of lumbar spine 12/19/2015 0 04/20/2017 Chronic cough 10/04/2015 05/05/2016 Chronic rhinitis 10/04/2015 04/20/2017 Leg cramps 03/31/2014 10/11/2014 DDD (degenerative disc disease), lumbar 03/08/20 14 04/20/2017 Lens replaced by other means 07/05/2013 History of deep venous thrombosis 09/07/2012 05/17/2013 Rectal bleeding 06/30/2012 08/16/2012 PE (pulmonary embolism) 09/04/2011 04/13/19 13 Degeneration of lumbar or lumbosacral interverte bral disc 08/07/2011 04/13/2012 Lumbosacral spondylosis without myelopathy 08/0610/21/2017 Ureterolithiasis 05/07/2011 04/13/2012 Overview: Right side. Lumbar facet arthropathy 05/05/2011 013 DDD (degenerative disc disease), lumbar 05/05/19 12 04/13/2012 Lumbar spondylosis 05/05/2011 04/13/2012 Left bundle branch block 05/28/2010 014 Perirectal abscess 08/10/2009 05/28/2010 Esophageal reflux 11/10/2008 10/11/2014 Impaired fasting glucose 10/11/2008 013 Overview: Under 110; See labs 10/12 Nonspecific abnormal results of liver function s tudy 10/05/2008 04/28/2011 Overview: ? Due to high-moderate alcohol intake documented as of this encounter (statuses as of 01/16/2022) [facility] History of Past illness Narrative* Problem Noted Date Resolved Date Closed nondisplaced fracture of distal phalanx of right great toe 01/16/2021 11/13/2021 Carotid artery stenosis 06/10/2019 06/11/19 20 Overview: History: history of left carotid stenosis, s/p carotid endarterectomy with bovine patch angioplasty on 06/09. Assessment: incision c/d/i, pain and blood pressure well controlled Plan: - discharge today Elevated prostate specific antigen (PSA) 017 10/21/2017 Osteoarthritis of lumbar spine 12/19/2015 0 04/20/2017 Chronic cough 10/04/2015 05/05/2016 Chronic rhinitis 10/04/2015 04/20/2017 Leg cramps 03/31/2014 10/11/2014 DDD (degenerative disc disease), lumbar 03/08/20 14 04/20/2017 Lens replaced by other means 07/05/2013 History of deep venous thrombosis 09/07/2012 05/17/2013 Rectal bleeding 06/30/2012 08/16/2012 PE (pulmonary embolism) 09/04/2011 04/13/19 13 Degeneration of lumbar or lumbosacral interverte bral disc 08/07/2011 04/13/2012 Lumbosacral spondylosis without myelopathy 08/0610/21/2017 Ureterolithiasis 05/07/2011 04/13/2012 Overview: Right side. Lumbar facet arthropathy 05/05/2011 013 DDD (degenerative disc disease), lumbar 05/05/19 12 04/13/2012 Lumbar spondylosis 05/05/2011 04/13/2012 Left bundle branch block 05/28/2010 014 Perirectal abscess 08/10/2009 05/28/2010 Esophageal reflux 11/10/2008 10/11/2014 Impaired fasting glucose 10/11/2008 013 Overview: Under 110; See labs 10/12 Nonspecific abnormal results of liver function s tudy 10/05/2008 04/28/2011 Overview: ? Due to high-moderate alcohol intake documented as of this encounter (statuses as of 01/22/2022) [facility] History of Past illness Narrative* Problem Noted Date Resolved Date Closed nondisplaced fracture of distal phalanx of right great toe 01/16/2021 11/13/2021 Carotid artery stenosis 06/10/2019 06/11/19 20 Overview: History: history of left carotid stenosis, s/p carotid endarterectomy with bovine patch angioplasty on 06/09. Assessment: incision c/d/i, pain and blood pressure well controlled Plan: - discharge today Elevated prostate specific antigen (PSA) 017 10/21/2017 Osteoarthritis of lumbar spine 12/19/2015 0 04/20/2017 Chronic cough 10/04/2015 05/05/2016 Chronic rhinitis 10/04/2015 04/20/2017 Leg cramps 03/31/2014 10/11/2014 DDD (degenerative disc disease), lumbar 03/08/20 14 04/20/2017 Lens replaced by other means 07/05/2013 History of deep venous thrombosis 09/07/2012 05/17/2013 Rectal bleeding 06/30/2012 08/16/2012 PE (pulmonary embolism) 09/04/2011 04/13/19 13 Degeneration of lumbar or lumbosacral interverte bral disc 08/07/2011 04/13/2012 Lumbosacral spondylosis without myelopathy 08/0610/21/2017 Ureterolithiasis 05/07/2011 04/13/2012 Overview: Right side. Lumbar facet arthropathy 05/05/2011 013 DDD (degenerative disc disease), lumbar 05/05/19 12 04/13/2012 Lumbar spondylosis 05/05/2011 04/13/2012 Left bundle branch block 05/28/2010 014 Perirectal abscess 08/10/2009 05/28/2010 Esophageal reflux 11/10/2008 10/11/2014 Impaired fasting glucose 10/11/2008 013 Overview: Under 110; See labs 10/12 Nonspecific abnormal results of liver function s tudy 10/05/2008 04/28/2011 Overview: ? Due to high-moderate alcohol intake documented as of this encounter (statuses as of 01/25/2022) [facility] History of Past illness Narrative* Problem Noted Date Resolved Date Closed nondisplaced fracture of distal phalanx of right great toe 01/16/2021 11/13/2021 Carotid artery stenosis 06/10/2019 06/11/19 20 Overview: History: history of left carotid stenosis, s/p carotid endarterectomy with bovine patch angioplasty on 06/09. Assessment: incision c/d/i, pain and blood pressure well controlled Plan: - discharge today Elevated prostate specific antigen (PSA) 017 10/21/2017 Osteoarthritis of lumbar spine 12/19/2015 0 04/20/2017 Chronic cough 10/04/2015 05/05/2016 Chronic rhinitis 10/04/2015 04/20/2017 Leg cramps 03/31/2014 10/11/2014 DDD (degenerative disc disease), lumbar 03/08/20 14 04/20/2017 Lens replaced by other means 07/05/2013 History of deep venous thrombosis 09/07/2012 05/17/2013 Rectal bleeding 06/30/2012 08/16/2012 PE (pulmonary embolism) 09/04/2011 04/13/19 13 Degeneration of lumbar or lumbosacral interverte bral disc 08/07/2011 04/13/2012 Lumbosacral spondylosis without myelopathy 08/0610/21/2017 Ureterolithiasis 05/07/2011 04/13/2012 Overview: Right side. Lumbar facet arthropathy 05/05/2011 013 DDD (degenerative disc disease), lumbar 05/05/19 12 04/13/2012 Lumbar spondylosis 05/05/2011 04/13/2012 Left bundle branch block 05/28/2010 014 Perirectal abscess 08/10/2009 05/28/2010 Esophageal reflux 11/10/2008 10/11/2014 Impaired fasting glucose 10/11/2008 013 Overview: Under 110; See labs 10/12 Nonspecific abnormal results of liver function s tudy 10/05/2008 04/28/2011 Overview: ? Due to high-moderate alcohol intake documented as of this encounter (statuses as of 02/01/2022) [facility] History of Past illness Narrative* Problem Noted Date Resolved Date Closed nondisplaced fracture of distal phalanx of right great toe 01/16/2021 11/13/2021 Carotid artery stenosis 06/10/2019 06/11/19 20 Overview: History: history of left carotid stenosis, s/p carotid endarterectomy with bovine patch angioplasty on 06/09. Assessment: incision c/d/i, pain and blood pressure well controlled Plan: - discharge today Elevated prostate specific antigen (PSA) 017 10/21/2017 Osteoarthritis of lumbar spine 12/19/2015 0 04/20/2017 Chronic cough 10/04/2015 05/05/2016 Chronic rhinitis 10/04/2015 04/20/2017 Leg cramps 03/31/2014 10/11/2014 DDD (degenerative disc disease), lumbar 03/08/20 14 04/20/2017 Lens replaced by other means 07/05/2013 History of deep venous thrombosis 09/07/2012 05/17/2013 Rectal bleeding 06/30/2012 08/16/2012 PE (pulmonary embolism) 09/04/2011 04/13/19 13 Degeneration of lumbar or lumbosacral interverte bral disc 08/07/2011 04/13/2012 Lumbosacral spondylosis without myelopathy 08/0610/21/2017 Ureterolithiasis 05/07/2011 04/13/2012 Overview: Right side. Lumbar facet arthropathy 05/05/2011 013 DDD (degenerative disc disease), lumbar 05/05/19 12 04/13/2012 Lumbar spondylosis 05/05/2011 04/13/2012 Left bundle branch block 05/28/2010 014 Perirectal abscess 08/10/2009 05/28/2010 Esophageal reflux 11/10/2008 10/11/2014 Impaired fasting glucose 10/11/2008 013 Overview: Under 110; See labs 10/12 Nonspecific abnormal results of liver function s [place] 10/05/2008 04/28/2011 Overview: ? Due to high-moderate alcohol intake documented as of this encounter (statuses as of 02/01/2022) [facility] History of Past illness Narrative* Problem Noted Date Resolved Date Closed nondisplaced fracture of distal phalanx of right great toe 01/16/2021 11/13/2021 Carotid artery stenosis 06/10/2019 06/11/19 20 Overview: History: history of left carotid stenosis, s/p carotid endarterectomy with bovine patch angioplasty on 3/6. Assessment: incision c/d/i, pain and blood pressure well controlled Plan: - discharge today Elevated prostate specific antigen (PSA) 017 10/21/2017 Osteoarthritis of lumbar spine 12/19/2015 0 04/20/2017 Chronic cough 10/04/2015 05/05/2016 Chronic rhinitis 10/04/2015 04/20/2017 Leg cramps 03/31/2014 10/11/2014 DDD (degenerative disc disease), lumbar 03/08/20 14 04/20/2017 Lens replaced by other means 07/05/2013 History of deep venous thrombosis 09/07/2012 05/17/2013 Rectal bleeding 06/30/2012 08/16/2012 PE (pulmonary embolism) 09/04/2011 04/13/19 13 Degeneration of lumbar or lumbosacral interverte bral disc 08/07/2011 04/13/2012 Lumbosacral spondylosis without myelopathy 08/0610/21/2017 Ureterolithiasis 05/07/2011 04/13/2012 Overview: Right side. Lumbar facet arthropathy 05/05/2011 013 DDD (degenerative disc disease), lumbar 05/05/19 12 04/13/2012 Lumbar spondylosis 05/05/2011 04/13/2012 Left bundle branch block 05/28/2010 014 Perirectal abscess 08/10/2009 05/28/2010 Esophageal reflux 11/10/2008 10/11/2014 Impaired fasting glucose 10/11/2008 013 Overview: Under 110; See labs 10/12 Nonspecific abnormal results of liver function s [place] 10/05/2008 04/28/2011 Overview: ? Due to high-moderate alcohol intake documented as of this encounter (statuses as of 02/03/2022) [facility] History of Past illness Narrative* Problem Noted Date Resolved Date Closed nondisplaced fracture of distal phalanx of right great toe 01/16/2021 11/13/2021 Carotid artery stenosis 06/10/2019 06/11/19 20 Overview: History: history of left carotid stenosis, s/p carotid endarterectomy with bovine patch angioplasty on 06/09. Assessment: incision c/d/i, pain and blood pressure well controlled Plan: - discharge today Elevated prostate specific antigen (PSA) 017 10/21/2017 Osteoarthritis of lumbar spine 12/19/2015 0 04/20/2017 Chronic cough 10/04/2015 05/05/2016 Chronic rhinitis 10/04/2015 04/20/2017 Leg cramps 03/31/2014 10/11/2014 DDD (degenerative disc disease), lumbar 03/08/20 14 04/20/2017 Lens replaced by other means 07/05/2013 History of deep venous thrombosis 09/07/2012 05/17/2013 Rectal bleeding 06/30/2012 08/16/2012 PE (pulmonary embolism) 09/04/2011 04/13/19 13 Degeneration of lumbar or lumbosacral interverte bral disc 08/07/2011 04/13/2012 Lumbosacral spondylosis without myelopathy 08/0610/21/2017 Ureterolithiasis 05/07/2011 04/13/2012 Overview: Right side. Lumbar facet arthropathy 05/05/2011 013 DDD (degenerative disc disease), lumbar 05/05/19 12 04/13/2012 Lumbar spondylosis 05/05/2011 04/13/2012 Left bundle branch block 05/28/2010 014 Perirectal abscess 08/10/2009 05/28/2010 Esophageal reflux 11/10/2008 10/11/2014 Impaired fasting glucose 10/11/2008 013 Overview: Under 110; See labs 10/12 Nonspecific abnormal results of liver function s tudy 10/05/2008 04/28/2011 Overview: ? Due to high-moderate alcohol intake documented as of this encounter (statuses as of 02/03/2022) [facility] History of Past illness Narrative* Problem Noted Date Resolved Date Closed nondisplaced fracture of distal phalanx of right great toe 01/16/2021 11/13/2021 Carotid artery stenosis 06/10/2019 06/11/19 20 Overview: History: history of left carotid stenosis, s/p carotid endarterectomy with bovine patch angioplasty on 06/09. Assessment: incision c/d/i, pain and blood pressure well controlled Plan: - discharge today Elevated prostate specific antigen (PSA) 017 10/21/2017 Osteoarthritis of lumbar spine 12/19/2015 0 04/20/2017 Chronic cough 10/04/2015 05/05/2016 Chronic rhinitis 10/04/2015 04/20/2017 Leg cramps 03/31/2014 10/11/2014 DDD (degenerative disc disease), lumbar 03/08/20 14 04/20/2017 Lens replaced by other means 07/05/2013 History of deep venous thrombosis 09/07/2012 05/17/2013 Rectal bleeding 06/30/2012 08/16/2012 PE (pulmonary embolism) 09/04/2011 04/13/19 13 Degeneration of lumbar or lumbosacral interverte bral disc 08/07/2011 04/13/2012 Lumbosacral spondylosis without myelopathy 08/0610/21/2017 Ureterolithiasis 05/07/2011 04/13/2012 Overview: Right side. Lumbar facet arthropathy 05/05/2011 013 DDD (degenerative disc disease), lumbar 05/05/19 12 04/13/2012 Lumbar spondylosis 05/05/2011 04/13/2012 Left bundle branch block 05/28/2010 014 Perirectal abscess 08/10/2009 05/28/2010 Esophageal reflux 11/10/2008 10/11/2014 Impaired fasting glucose 10/11/2008 013 Overview: Under 110; See labs 10/12 Nonspecific abnormal results of liver function s tudy 10/05/2008 04/28/2011 Overview: ? Due to high-moderate alcohol intake documented as of this encounter (statuses as of 02/12/2022) [facility] History of Past illness Narrative* Problem Noted Date Resolved Date Closed nondisplaced fracture of distal phalanx of right great toe 01/16/2021 11/13/2021 Carotid artery stenosis 06/10/2019 06/11/19 20 Overview: History: history of left carotid stenosis, s/p carotid endarterectomy with bovine patch angioplasty on 06/09. Assessment: incision c/d/i, pain and blood pressure well controlled Plan: - discharge today Elevated prostate specific antigen (PSA) 017 10/21/2017 Osteoarthritis of lumbar spine 12/19/2015 0 04/20/2017 Chronic cough 10/04/2015 05/05/2016 Chronic rhinitis 10/04/2015 04/20/2017 Leg cramps 03/31/2014 10/11/2014 DDD (degenerative disc disease), lumbar 03/08/20 14 04/20/2017 Lens replaced by other means 07/05/2013 History of deep venous thrombosis 09/07/2012 05/17/2013 Rectal bleeding 06/30/2012 08/16/2012 PE (pulmonary embolism) 09/04/2011 04/13/19 13 Degeneration of lumbar or lumbosacral interverte bral disc 08/07/2011 04/13/2012 Lumbosacral spondylosis without myelopathy 08/0610/21/2017 Ureterolithiasis 05/07/2011 04/13/2012 Overview: Right side. Lumbar facet arthropathy 05/05/2011 013 DDD (degenerative disc disease), lumbar 05/05/19 12 04/13/2012 Lumbar spondylosis 05/05/2011 04/13/2012 Left bundle branch block 05/28/2010 014 Perirectal abscess 08/10/2009 05/28/2010 Esophageal reflux 11/10/2008 10/11/2014 Impaired fasting glucose 10/11/2008 013 Overview: Under 110; See labs 10/12 Nonspecific abnormal results of liver function s [place] 10/05/2008 04/28/2011 Overview: ? Due to high-moderate alcohol intake documented as of this encounter (statuses as of 02/18/2022) [facility] of Past illness Narrative* Problem Noted Date Resolved Date Closed nondisplaced fracture of distal phalanx of right great toe 01/16/2021 11/13/2021 Carotid artery stenosis 06/10/2019 06/11/19 20 Overview: History: history of left carotid stenosis, s/p carotid endarterectomy with bovine patch angioplasty on 06/09. Assessment: incision c/d/i, pain and blood pressure well controlled Plan: - discharge today Elevated prostate specific antigen (PSA) 017 10/21/2017 Osteoarthritis of lumbar spine 12/19/2015 0 04/20/2017 Chronic cough 10/04/2015 05/05/2016 Chronic rhinitis 10/04/2015 04/20/2017 Leg cramps 03/31/2014 10/11/2014 DDD (degenerative disc disease), lumbar 03/08/20 14 04/20/2017 Lens replaced by other means 07/05/2013 History of deep venous thrombosis 09/07/2012 05/17/2013 Rectal bleeding 06/30/2012 08/16/2012 PE (pulmonary embolism) 09/04/2011 04/13/19 13 Degeneration of lumbar or lumbosacral interverte bral disc 08/07/2011 04/13/2012 Lumbosacral spondylosis without myelopathy 08/0610/21/2017 Ureterolithiasis 05/07/2011 04/13/2012 Overview: Right side. Lumbar facet arthropathy 05/05/2011 013 DDD (degenerative disc disease), lumbar 05/05/19 12 04/13/2012 Lumbar spondylosis 05/05/2011 04/13/2012 Left bundle branch block 05/28/2010 014 Perirectal abscess 08/10/2009 05/28/2010 Esophageal reflux 11/10/2008 10/11/2014 Impaired fasting glucose 10/11/2008 013 Overview: Under 110; See labs 10/12 Nonspecific abnormal results of liver function s tudy 10/05/2008 04/28/2011 Overview: ? Due to high-moderate alcohol intake documented as of this encounter (statuses as of 02/19/2022) [facility] History of Past illness Narrative* Problem Noted Date Resolved Date Closed nondisplaced fracture of distal phalanx of right great toe 01/16/2021 11/13/2021 Carotid artery stenosis 06/10/2019 06/11/19 20 Overview: History: history of left carotid stenosis, s/p carotid endarterectomy with bovine patch angioplasty on 06/09. Assessment: incision c/d/i, pain and blood pressure well controlled Plan: - discharge today Elevated prostate specific antigen (PSA) 017 10/21/2017 Osteoarthritis of lumbar spine 12/19/2015 0 04/20/2017 Chronic cough 10/04/2015 05/05/2016 Chronic rhinitis 10/04/2015 04/20/2017 Leg cramps 03/31/2014 10/11/2014 DDD (degenerative disc disease), lumbar 03/08/20 14 04/20/2017 Lens replaced by other means 07/05/2013 History of deep venous thrombosis 09/07/2012 05/17/2013 Rectal bleeding 06/30/2012 08/16/2012 PE (pulmonary embolism) 09/04/2011 04/13/19 13 Degeneration of lumbar or lumbosacral interverte bral disc 08/07/2011 04/13/2012 Lumbosacral spondylosis without myelopathy 08/0610/21/2017 Ureterolithiasis 05/07/2011 04/13/2012 Overview: Right side. Lumbar facet arthropathy 05/05/2011 013 DDD (degenerative disc disease), lumbar 05/05/19 12 04/13/2012 Lumbar spondylosis 05/05/2011 04/13/2012 Left bundle branch block 05/28/2010 014 Perirectal abscess 08/10/2009 05/28/2010 Esophageal reflux 11/10/2008 10/11/2014 Impaired fasting glucose 10/11/2008 013 Overview: Under 110; See labs 10/12 Nonspecific abnormal results of liver function s tudy 10/05/2008 04/28/2011 Overview: ? Due to high-moderate alcohol intake documented as of this encounter (statuses as of 03/06/2022) [facility] History of Past illness Narrative* Problem Noted Date Resolved Date Closed nondisplaced fracture of distal phalanx of right great toe 01/16/2021 11/13/2021 Carotid artery stenosis 06/10/2019 06/11/19 20 Overview: History: history of left carotid stenosis, s/p carotid endarterectomy with bovine patch angioplasty on 06/09. Assessment: incision c/d/i, pain and blood pressure well controlled Plan: - discharge today Elevated prostate specific antigen (PSA) 017 10/21/2017 Osteoarthritis of lumbar spine 12/19/2015 0 04/20/2017 Chronic cough 10/04/2015 05/05/2016 Chronic rhinitis 10/04/2015 04/20/2017 Leg cramps 03/31/2014 10/11/2014 DDD (degenerative disc disease), lumbar 03/08/20 14 04/20/2017 Lens replaced by other means 07/05/2013 History of deep venous thrombosis 09/07/2012 05/17/2013 Rectal bleeding 06/30/2012 08/16/2012 PE (pulmonary embolism) 09/04/2011 04/13/19 13 Degeneration of lumbar or lumbosacral interverte bral disc 08/07/2011 04/13/2012 Lumbosacral spondylosis without myelopathy 08/0610/21/2017 Ureterolithiasis 05/07/2011 04/13/2012 Overview: Right side. Lumbar facet arthropathy 05/05/2011 013 DDD (degenerative disc disease), lumbar 05/05/19 12 04/13/2012 Lumbar spondylosis 05/05/2011 04/13/2012 Left bundle branch block 05/28/2010 014 Perirectal abscess 08/10/2009 05/28/2010 Esophageal reflux 11/10/2008 10/11/2014 Impaired fasting glucose 10/11/2008 013 Overview: Under 110; See labs 10/12 Nonspecific abnormal results of liver function s tudy 10/05/2008 04/28/2011 Overview: ? Due to high-moderate alcohol intake documented as of this encounter (statuses as of 03/13/2022) [facility] History of Past illness Narrative* Problem Noted Date Resolved Date Closed nondisplaced fracture of distal phalanx of right great toe 01/16/2021 11/13/2021 Carotid artery stenosis 06/10/2019 06/11/19 20 Overview: History: history of left carotid stenosis, s/p carotid endarterectomy with bovine patch angioplasty on 06/09. Assessment: incision c/d/i, pain and blood pressure well controlled Plan: - discharge today Elevated prostate specific antigen (PSA) 017 10/21/2017 Osteoarthritis of lumbar spine 12/19/2015 0 04/20/2017 Chronic cough 10/04/2015 05/05/2016 Chronic rhinitis 10/04/2015 04/20/2017 Leg cramps 03/31/2014 10/11/2014 DDD (degenerative disc disease), lumbar 03/08/20 14 04/20/2017 Lens replaced by other means 07/05/2013 History of deep venous thrombosis 09/07/2012 05/17/2013 Rectal bleeding 06/30/2012 08/16/2012 PE (pulmonary embolism) 09/04/2011 04/13/19 13 Degeneration of lumbar or lumbosacral interverte bral disc 08/07/2011 04/13/2012 Lumbosacral spondylosis without myelopathy 08/0610/21/2017 Ureterolithiasis 05/07/2011 04/13/2012 Overview: Right side. Lumbar facet arthropathy 05/05/2011 013 DDD (degenerative disc disease), lumbar 05/05/19 12 04/13/2012 Lumbar spondylosis 05/05/2011 04/13/2012 Left bundle branch block 05/28/2010 014 Perirectal abscess 08/10/2009 05/28/2010 Esophageal reflux 11/10/2008 10/11/2014 Impaired fasting glucose 10/11/2008 013 Overview: Under 110; See labs 10/12 Nonspecific abnormal results of liver function s [place] 10/05/2008 04/28/2011 Overview: ? Due to high-moderate alcohol intake documented as of this encounter (statuses as of 03/18/2022) [facility] History of Past illness Narrative* Problem Noted Date Resolved Date Closed nondisplaced fracture of distal phalanx of right great toe 01/16/2021 11/13/2021 Carotid artery stenosis 06/10/2019 06/11/19 20 Overview: History: history of left carotid stenosis, s/p carotid endarterectomy with bovine patch angioplasty on 06/09. Assessment: incision c/d/i, pain and blood pressure well controlled Plan: - discharge today Elevated prostate specific antigen (PSA) 017 10/21/2017 Osteoarthritis of lumbar spine 12/19/2015 0 04/20/2017 Chronic cough 10/04/2015 05/05/2016 Chronic rhinitis 10/04/2015 04/20/2017 Leg cramps 03/31/2014 10/11/2014 DDD (degenerative disc disease), lumbar 03/08/20 14 04/20/2017 Lens replaced by other means 07/05/2013 History of deep venous thrombosis 09/07/2012 05/17/2013 Rectal bleeding 06/30/2012 08/16/2012 PE (pulmonary embolism) 09/04/2011 04/13/19 13 Degeneration of lumbar or lumbosacral interverte bral disc 08/07/2011 04/13/2012 Lumbosacral spondylosis without myelopathy 08/0610/21/2017 Ureterolithiasis 05/07/2011 04/13/2012 Overview: Right side. Lumbar facet arthropathy 05/05/2011 013 DDD (degenerative disc disease), lumbar 05/05/19 12 04/13/2012 Lumbar spondylosis 05/05/2011 04/13/2012 Left bundle branch block 05/28/2010 014 Perirectal abscess 08/10/2009 05/28/2010 Esophageal reflux 11/10/2008 10/11/2014 Impaired fasting glucose 10/11/2008 013 Overview: Under 110; See labs 10/12 Nonspecific abnormal results of liver function s [place]itchie 10/05/2008 04/28/2011 Overview: ? Due to high-moderate alcohol intake documented as of this encounter (statuses as of 03/18/2022) [facility] History of Past illness Narrative* Problem Noted Date Resolved Date Closed nondisplaced fracture of distal phalanx of right great toe 01/16/2021 11/13/2021 Carotid artery stenosis 06/10/2019 06/11/19 20 Overview: History: history of left carotid stenosis, s/p carotid endarterectomy with bovine patch angioplasty on 06/09. Assessment: incision c/d/i, pain and blood pressure well controlled Plan: - discharge today Elevated prostate specific antigen (PSA) 017 10/21/2017 Osteoarthritis of lumbar spine 12/19/2015 0 04/20/2017 Chronic cough 10/04/2015 05/05/2016 Chronic rhinitis 10/04/2015 04/20/2017 Leg cramps 03/31/2014 10/11/2014 DDD (degenerative disc disease), lumbar 03/08/20 14 04/20/2017 Lens replaced by other means 07/05/2013 History of deep venous thrombosis 09/07/2012 05/17/2013 Rectal bleeding 06/30/2012 08/16/2012 PE (pulmonary embolism) 09/04/2011 04/13/19 13 Degeneration of lumbar or lumbosacral interverte bral disc 08/07/2011 04/13/2012 Lumbosacral spondylosis without myelopathy 08/0610/21/2017 Ureterolithiasis 05/07/2011 04/13/2012 Overview: Right side. Lumbar facet arthropathy 05/05/2011 013 DDD (degenerative disc disease), lumbar 05/05/19 12 04/13/2012 Lumbar spondylosis 05/05/2011 04/13/2012 Left bundle branch block 05/28/2010 014 Perirectal abscess 08/10/2009 05/28/2010 Esophageal reflux 11/10/2008 10/11/2014 Impaired fasting glucose 10/11/2008 013 Overview: Under 110; See labs 10/12 Nonspecific abnormal results of liver function s [place]itch[place] 10/05/2008 04/28/2011 Overview: ? Due to high-moderate alcohol intake documented as of this encounter (statuses as of 03/19/2022) [facility] History of Past illness Narrative* Problem Noted Date Resolved Date Closed nondisplaced fracture of distal phalanx of right great toe 01/16/2021 11/13/2021 Carotid artery stenosis 06/10/2019 06/11/19 20 Overview: History: history of left carotid stenosis, s/p carotid endarterectomy with bovine patch angioplasty on 06/09. Assessment: incision c/d/i, pain and blood pressure well controlled Plan: - discharge today Elevated prostate specific antigen (PSA) 017 10/21/2017 Osteoarthritis of lumbar spine 12/19/2015 0 04/20/2017 Chronic cough 10/04/2015 05/05/2016 Chronic rhinitis 10/04/2015 04/20/2017 Leg cramps 03/31/2014 10/11/2014 DDD (degenerative disc disease), lumbar 03/08/20 14 04/20/2017 Lens replaced by other means 07/05/2013 History of deep venous thrombosis 09/07/2012 05/17/2013 Rectal bleeding 06/30/2012 08/16/2012 PE (pulmonary embolism) 09/04/2011 04/13/19 13 Degeneration of lumbar or lumbosacral interverte bral disc 08/07/2011 04/13/2012 Lumbosacral spondylosis without myelopathy 08/0610/21/2017 Ureterolithiasis 05/07/2011 04/13/2012 Overview: Right side. Lumbar facet arthropathy 05/05/2011 013 DDD (degenerative disc disease), lumbar 05/05/19 12 04/13/2012 Lumbar spondylosis 05/05/2011 04/13/2012 Left bundle branch block 05/28/2010 014 Perirectal abscess 08/10/2009 05/28/2010 Esophageal reflux 11/10/2008 10/11/2014 Impaired fasting glucose 10/11/2008 013 Overview: Under 110; See labs 10/12 Nonspecific abnormal results of liver function s tudy 10/05/2008 04/28/2011 Overview: ? Due to high-moderate alcohol intake documented as of this encounter (statuses as of 03/26/2022) [facility] History of Past illness Narrative* Problem Noted Date Resolved Date Closed nondisplaced fracture of distal phalanx of right great toe 01/16/2021 11/13/2021 Carotid artery stenosis 06/10/2019 06/11/19 20 Overview: History: history of left carotid stenosis, s/p carotid endarterectomy with bovine patch angioplasty on 06/09. Assessment: incision c/d/i, pain and blood pressure well controlled Plan: - discharge today Elevated prostate specific antigen (PSA) 017 10/21/2017 Osteoarthritis of lumbar spine 12/19/2015 0 04/20/2017 Chronic cough 10/04/2015 05/05/2016 Chronic rhinitis 10/04/2015 04/20/2017 Leg cramps 03/31/2014 10/11/2014 DDD (degenerative disc disease), lumbar 03/08/20 14 04/20/2017 Lens replaced by other means 07/05/2013 History of deep venous thrombosis 09/07/2012 05/17/2013 Rectal bleeding 06/30/2012 08/16/2012 PE (pulmonary embolism) 09/04/2011 04/13/19 13 Degeneration of lumbar or lumbosacral interverte bral disc 08/07/2011 04/13/2012 Lumbosacral spondylosis without myelopathy 08/0610/21/2017 Ureterolithiasis 05/07/2011 04/13/2012 Overview: Right side. Lumbar facet arthropathy 05/05/2011 013 DDD (degenerative disc disease), lumbar 05/05/19 12 04/13/2012 Lumbar spondylosis 05/05/2011 04/13/2012 Left bundle branch block 05/28/2010 014 Perirectal abscess 08/10/2009 05/28/2010 Esophageal reflux 11/10/2008 10/11/2014 Impaired fasting glucose 10/11/2008 013 Overview: Under 110; See labs 10/12 Nonspecific abnormal results of liver function s tudy 10/05/2008 04/28/2011 Overview: ? Due to high-moderate alcohol intake documented as of this encounter (statuses as of 04/08/2022) [facility] History of Past illness Narrative* Problem Noted Date Resolved Date Closed nondisplaced fracture of distal phalanx of right great toe 01/16/2021 11/13/2021 Carotid artery stenosis 06/10/2019 06/11/19 20 Overview: History: history of left carotid stenosis, s/p carotid endarterectomy with bovine patch angioplasty on 06/09. Assessment: incision c/d/i, pain and blood pressure well controlled Plan: - discharge today Elevated prostate specific antigen (PSA) 017 10/21/2017 Osteoarthritis of lumbar spine 12/19/2015 0 04/20/2017 Chronic cough 10/04/2015 05/05/2016 Chronic rhinitis 10/04/2015 04/20/2017 Leg cramps 03/31/2014 10/11/2014 DDD (degenerative disc disease), lumbar 03/08/20 14 04/20/2017 Lens replaced by other means 07/05/2013 History of deep venous thrombosis 09/07/2012 05/17/2013 Rectal bleeding 06/30/2012 08/16/2012 PE (pulmonary embolism) 09/04/2011 04/13/19 13 Degeneration of lumbar or lumbosacral interverte bral disc 08/07/2011 04/13/2012 Lumbosacral spondylosis without myelopathy 08/0610/21/2017 Ureterolithiasis 05/07/2011 04/13/2012 Overview: Right side. Lumbar facet arthropathy 05/05/2011 013 DDD (degenerative disc disease), lumbar 05/05/19 12 04/13/2012 Lumbar spondylosis 05/05/2011 04/13/2012 Left bundle branch block 05/28/2010 014 Perirectal abscess 08/10/2009 05/28/2010 Esophageal reflux 11/10/2008 10/11/2014 Impaired fasting glucose 10/11/2008 013 Overview: Under 110; See labs 10/12 Nonspecific abnormal results of liver function s tudy 10/05/2008 04/28/2011 Overview: ? Due to high-moderate alcohol intake documented as of this encounter (statuses as of 04/09/2022) [facility] History of Past illness Narrative* Problem Noted Date Resolved Date Closed nondisplaced fracture of distal phalanx of right great toe 01/16/2021 11/13/2021 Carotid artery stenosis 06/10/2019 06/11/19 20 Overview: History: history of left carotid stenosis, s/p carotid endarterectomy with bovine patch angioplasty on 06/09. Assessment: incision c/d/i, pain and blood pressure well controlled Plan: - discharge today Elevated prostate specific antigen (PSA) 017 10/21/2017 Osteoarthritis of lumbar spine 12/19/2015 0 04/20/2017 Chronic cough 10/04/2015 05/05/2016 Chronic rhinitis 10/04/2015 04/20/2017 Leg cramps 03/31/2014 10/11/2014 DDD (degenerative disc disease), lumbar 03/08/20 14 04/20/2017 Lens replaced by other means 07/05/2013 History of deep venous thrombosis 09/07/2012 05/17/2013 Rectal bleeding 06/30/2012 08/16/2012 PE (pulmonary embolism) 09/04/2011 04/13/19 13 Degeneration of lumbar or lumbosacral interverte bral disc 08/07/2011 04/13/2012 Lumbosacral spondylosis without myelopathy 08/0610/21/2017 Ureterolithiasis 05/07/2011 04/13/2012 Overview: Right side. Lumbar facet arthropathy 05/05/2011 013 DDD (degenerative disc disease), lumbar 05/05/19 12 04/13/2012 Lumbar spondylosis 05/05/2011 04/13/2012 Left bundle branch block 05/28/2010 014 Perirectal abscess 08/10/2009 05/28/2010 Esophageal reflux 11/10/2008 10/11/2014 Impaired fasting glucose 10/11/2008 013 Overview: Under 110; See labs 10/12 Nonspecific abnormal results of liver function s tudy 10/05/2008 04/28/2011 Overview: ? Due to high-moderate alcohol intake documented as of this encounter (statuses as of 04/10/2022) [facility] History of Past illness Narrative* Problem Noted Date Resolved Date Closed nondisplaced fracture of distal phalanx of right great toe 01/16/2021 11/13/2021 Carotid artery stenosis 06/10/2019 06/11/19 20 Overview: History: history of left carotid stenosis, s/p carotid endarterectomy with bovine patch angioplasty on 06/09. Assessment: incision c/d/i, pain and blood pressure well controlled Plan: - discharge today Elevated prostate specific antigen (PSA) 017 10/21/2017 Osteoarthritis of lumbar spine 12/19/2015 0 04/20/2017 Chronic cough 10/04/2015 05/05/2016 Chronic rhinitis 10/04/2015 04/20/2017 Leg cramps 03/31/2014 10/11/2014 DDD (degenerative disc disease), lumbar 03/08/20 14 04/20/2017 Lens replaced by other means 07/05/2013 History of deep venous thrombosis 09/07/2012 05/17/2013 Rectal bleeding 06/30/2012 08/16/2012 PE (pulmonary embolism) 09/04/2011 04/13/19 13 Degeneration of lumbar or lumbosacral interverte bral disc 08/07/2011 04/13/2012 Lumbosacral spondylosis without myelopathy 08/0610/21/2017 Ureterolithiasis 05/07/2011 04/13/2012 Overview: Right side. Lumbar facet arthropathy 05/05/2011 013 DDD (degenerative disc disease), lumbar 05/05/19 12 04/13/2012 Lumbar spondylosis 05/05/2011 04/13/2012 Left bundle branch block 05/28/2010 014 Perirectal abscess 08/10/2009 05/28/2010 Esophageal reflux 11/10/2008 10/11/2014 Impaired fasting glucose 10/11/2008 013 Overview: Under 110; See labs 10/12 Nonspecific abnormal results of liver function s tudy 10/05/2008 04/28/2011 Overview: ? Due to high-moderate alcohol intake documented as of this encounter (statuses as of 04/12/2022) [facility] History of Past illness Narrative* Problem Noted Date Resolved Date Closed nondisplaced fracture of distal phalanx of right great toe 01/16/2021 11/13/2021 Carotid artery stenosis 06/10/2019 06/11/19 20 Overview: History: history of left carotid stenosis, s/p carotid endarterectomy with bovine patch angioplasty on 06/09. Assessment: incision c/d/i, pain and blood pressure well controlled Plan: - discharge today Elevated prostate specific antigen (PSA) 017 10/21/2017 Osteoarthritis of lumbar spine 12/19/2015 0 04/20/2017 Chronic cough 10/04/2015 05/05/2016 Chronic rhinitis 10/04/2015 04/20/2017 Leg cramps 03/31/2014 10/11/2014 DDD (degenerative disc disease), lumbar 03/08/20 14 04/20/2017 Lens replaced by other means 07/05/2013 History of deep venous thrombosis 09/07/2012 05/17/2013 Rectal bleeding 06/30/2012 08/16/2012 PE (pulmonary embolism) 09/04/2011 04/13/19 13 Degeneration of lumbar or lumbosacral interverte bral disc 08/07/2011 04/13/2012 Lumbosacral spondylosis without myelopathy 08/0610/21/2017 Ureterolithiasis 05/07/2011 04/13/2012 Overview: Right side. Lumbar facet arthropathy 05/05/2011 013 DDD (degenerative disc disease), lumbar 05/05/19 12 04/13/2012 Lumbar spondylosis 05/05/2011 04/13/2012 Left bundle branch block 05/28/2010 014 Perirectal abscess 08/10/2009 05/28/2010 Esophageal reflux 11/10/2008 10/11/2014 Impaired fasting glucose 10/11/2008 013 Overview: Under 110; See labs 10/12 Nonspecific abnormal results of liver function s tudy 10/05/2008 04/28/2011 Overview: ? Due to high-moderate alcohol intake documented as of this encounter (statuses as of 04/16/2022) [facility] History of Past illness Narrative* Problem Noted Date Resolved Date Closed nondisplaced fracture of distal phalanx of right great toe 01/16/2021 11/13/2021 Carotid artery stenosis 06/10/2019 06/11/19 20 Overview: History: history of left carotid stenosis, s/p carotid endarterectomy with bovine patch angioplasty on 06/09. Assessment: incision c/d/i, pain and blood pressure well controlled Plan: - discharge today Elevated prostate specific antigen (PSA) 017 10/21/2017 Osteoarthritis of lumbar spine 12/19/2015 0 04/20/2017 Chronic cough 10/04/2015 05/05/2016 Chronic rhinitis 10/04/2015 04/20/2017 Leg cramps 03/31/2014 10/11/2014 DDD (degenerative disc disease), lumbar 03/08/20 14 04/20/2017 Lens replaced by other means 07/05/2013 History of deep venous thrombosis 09/07/2012 05/17/2013 Rectal bleeding 06/30/2012 08/16/2012 PE (pulmonary embolism) 09/04/2011 04/13/19 13 Degeneration of lumbar or lumbosacral interverte bral disc 08/07/2011 04/13/2012 Lumbosacral spondylosis without myelopathy 08/0610/21/2017 Ureterolithiasis 05/07/2011 04/13/2012 Overview: Right side. Lumbar facet arthropathy 05/05/2011 013 DDD (degenerative disc disease), lumbar 05/05/19 12 04/13/2012 Lumbar spondylosis 05/05/2011 04/13/2012 Left bundle branch block 05/28/2010 014 Perirectal abscess 08/10/2009 05/28/2010 Esophageal reflux 11/10/2008 10/11/2014 Impaired fasting glucose 10/11/2008 013 Overview: Under 110; See labs 10/12 Nonspecific abnormal results of liver function s tudy 10/05/2008 04/28/2011 Overview: ? Due to high-moderate alcohol intake documented as of this encounter (statuses as of 04/17/2022) [facility] History of Past illness Narrative* Problem Noted Date Resolved Date Closed nondisplaced fracture of distal phalanx of right great toe 01/16/2021 11/13/2021 Carotid artery stenosis 06/10/2019 06/11/19 20 Overview: History: history of left carotid stenosis, s/p carotid endarterectomy with bovine patch angioplasty on 06/09. Assessment: incision c/d/i, pain and blood pressure well controlled Plan: - discharge today Elevated prostate specific antigen (PSA) 017 10/21/2017 Osteoarthritis of lumbar spine 12/19/2015 0 04/20/2017 Chronic cough 10/04/2015 05/05/2016 Chronic rhinitis 10/04/2015 04/20/2017 Leg cramps 03/31/2014 10/11/2014 DDD (degenerative disc disease), lumbar 03/08/20 14 04/20/2017 Lens replaced by other means 07/05/2013 History of deep venous thrombosis 09/07/2012 05/17/2013 Rectal bleeding 06/30/2012 08/16/2012 PE (pulmonary embolism) 09/04/2011 04/13/19 13 Degeneration of lumbar or lumbosacral interverte bral disc 08/07/2011 04/13/2012 Lumbosacral spondylosis without myelopathy 08/0610/21/2017 Ureterolithiasis 05/07/2011 04/13/2012 Overview: Right side. Lumbar facet arthropathy 05/05/2011 013 DDD (degenerative disc disease), lumbar 05/05/19 12 04/13/2012 Lumbar spondylosis 05/05/2011 04/13/2012 Left bundle branch block 05/28/2010 014 Perirectal abscess 08/10/2009 05/28/2010 Esophageal reflux 11/10/2008 10/11/2014 Impaired fasting glucose 10/11/2008 013 Overview: Under 110; See labs 10/12 Nonspecific abnormal results of liver function s tudy 10/05/2008 04/28/2011 Overview: ? Due to high-moderate alcohol intake documented as of this encounter (statuses as of 04/24/2022) [facility] History of Past illness Narrative* Problem Noted Date Resolved Date Closed nondisplaced fracture of distal phalanx of right great toe 01/16/2021 11/13/2021 Carotid artery stenosis 06/10/2019 06/11/19 20 Overview: History: history of left carotid stenosis, s/p carotid endarterectomy with bovine patch angioplasty on 06/09. Assessment: incision c/d/i, pain and blood pressure well controlled Plan: - discharge today Elevated prostate specific antigen (PSA) 017 10/21/2017 Osteoarthritis of lumbar spine 12/19/2015 0 04/20/2017 Chronic cough 10/04/2015 05/05/2016 Chronic rhinitis 10/04/2015 04/20/2017 Leg cramps 03/31/2014 10/11/2014 DDD (degenerative disc disease), lumbar 03/08/20 14 04/20/2017 Lens replaced by other means 07/05/2013 History of deep venous thrombosis 09/07/2012 05/17/2013 Rectal bleeding 06/30/2012 08/16/2012 PE (pulmonary embolism) 09/04/2011 04/13/19 13 Degeneration of lumbar or lumbosacral interverte bral disc 08/07/2011 04/13/2012 Lumbosacral spondylosis without myelopathy 08/0610/21/2017 Ureterolithiasis 05/07/2011 04/13/2012 Overview: Right side. Lumbar facet arthropathy 05/05/2011 013 DDD (degenerative disc disease), lumbar 05/05/19 12 04/13/2012 Lumbar spondylosis 05/05/2011 04/13/2012 Left bundle branch block 05/28/2010 014 Perirectal abscess 08/10/2009 05/28/2010 Esophageal reflux 11/10/2008 10/11/2014 Impaired fasting glucose 10/11/2008 013 Overview: Under 110; See labs 10/12 Nonspecific abnormal results of liver function s tudy 10/05/2008 04/28/2011 Overview: ? Due to high-moderate alcohol intake documented as of this encounter (statuses as of 04/24/2022) [facility] of Past illness Narrative* Problem Noted Date Resolved Date Closed nondisplaced fracture of distal phalanx of right great toe 01/16/2021 11/13/2021 Carotid artery stenosis 06/10/2019 06/11/19 20 Overview: History: history of left carotid stenosis, s/p carotid endarterectomy with bovine patch angioplasty on 06/09. Assessment: incision c/d/i, pain and blood pressure well controlled Plan: - discharge today Elevated prostate specific antigen (PSA) 017 10/21/2017 Osteoarthritis of lumbar spine 12/19/2015 0 04/20/2017 Chronic cough 10/04/2015 05/05/2016 Chronic rhinitis 10/04/2015 04/20/2017 Leg cramps 03/31/2014 10/11/2014 DDD (degenerative disc disease), lumbar 03/08/20 14 04/20/2017 Lens replaced by other means 07/05/2013 History of deep venous thrombosis 09/07/2012 05/17/2013 Rectal bleeding 06/30/2012 08/16/2012 PE (pulmonary embolism) 09/04/2011 04/13/19 13 Degeneration of lumbar or lumbosacral interverte bral disc 08/07/2011 04/13/2012 Lumbosacral spondylosis without myelopathy 08/0610/21/2017 Ureterolithiasis 05/07/2011 04/13/2012 Overview: Right side. Lumbar facet arthropathy 05/05/2011 013 DDD (degenerative disc disease), lumbar 05/05/19 12 04/13/2012 Lumbar spondylosis 05/05/2011 04/13/2012 Left bundle branch block 05/28/2010 014 Perirectal abscess 08/10/2009 05/28/2010 Esophageal reflux 11/10/2008 10/11/2014 Impaired fasting glucose 10/11/2008 013 Overview: Under 110; See labs 10/12 Nonspecific abnormal results of liver function s tudy 10/05/2008 04/28/2011 Overview: ? Due to high-moderate alcohol intake documented as of this encounter (statuses as of 05/10/2022) [facility]21 History of Past illness Narrative* Problem Noted Date Resolved Date Closed nondisplaced fracture of distal phalanx of right great toe 01/16/2021 11/13/2021 Carotid artery stenosis 06/10/2019 06/11/19 20 Overview: History: history of left carotid stenosis, s/p carotid endarterectomy with bovine patch angioplasty on 06/09. Assessment: incision c/d/i, pain and blood pressure well controlled Plan: - discharge today Elevated prostate specific antigen (PSA) 017 10/21/2017 Osteoarthritis of lumbar spine 12/19/2015 0 04/20/2017 Chronic cough 10/04/2015 05/05/2016 Chronic rhinitis 10/04/2015 04/20/2017 Leg cramps 03/31/2014 10/11/2014 DDD (degenerative disc disease), lumbar 03/08/20 14 04/20/2017 Lens replaced by other means 07/05/2013 History of deep venous thrombosis 09/07/2012 05/17/2013 Rectal bleeding 06/30/2012 08/16/2012 PE (pulmonary embolism) 09/04/2011 04/13/19 13 Degeneration of lumbar or lumbosacral interverte bral disc 08/07/2011 04/13/2012 Lumbosacral spondylosis without myelopathy 08/0610/21/2017 Ureterolithiasis 05/07/2011 04/13/2012 Overview: Right side. Lumbar facet arthropathy 05/05/2011 013 DDD (degenerative disc disease), lumbar 05/05/19 12 04/13/2012 Lumbar spondylosis 05/05/2011 04/13/2012 Left bundle branch block 05/28/2010 014 Perirectal abscess 08/10/2009 05/28/2010 Esophageal reflux 11/10/2008 10/11/2014 Impaired fasting glucose 10/11/2008 013 Overview: Under 110; See labs 10/12 Nonspecific abnormal results of liver function s tudy 10/05/2008 04/28/2011 Overview: ? Due to high-moderate alcohol intake documented as of this encounter (statuses as of 05/18/2022) [facility] History of Past illness Narrative* Problem Noted Date Resolved Date Closed nondisplaced fracture of distal phalanx of right great toe 01/16/2021 11/13/2021 Carotid artery stenosis 06/10/2019 06/11/19 20 Overview: History: history of left carotid stenosis, s/p carotid endarterectomy with bovine patch angioplasty on 06/09. Assessment: incision c/d/i, pain and blood pressure well controlled Plan: - discharge today Elevated prostate specific antigen (PSA) 017 10/21/2017 Osteoarthritis of lumbar spine 12/19/2015 0 04/20/2017 Chronic cough 10/04/2015 05/05/2016 Chronic rhinitis 10/04/2015 04/20/2017 Leg cramps 03/31/2014 10/11/2014 DDD (degenerative disc disease), lumbar 03/08/20 14 04/20/2017 Lens replaced by other means 07/05/2013 History of deep venous thrombosis 09/07/2012 05/17/2013 Rectal bleeding 06/30/2012 08/16/2012 PE (pulmonary embolism) 09/04/2011 04/13/19 13 Degeneration of lumbar or lumbosacral interverte bral disc 08/07/2011 04/13/2012 Lumbosacral spondylosis without myelopathy 08/0610/21/2017 Ureterolithiasis 05/07/2011 04/13/2012 Overview: Right side. Lumbar facet arthropathy 05/05/2011 013 DDD (degenerative disc disease), lumbar 05/05/19 12 04/13/2012 Lumbar spondylosis 05/05/2011 04/13/2012 Left bundle branch block 05/28/2010 014 Perirectal abscess 08/10/2009 05/28/2010 Esophageal reflux 11/10/2008 10/11/2014 Impaired fasting glucose 10/11/2008 013 Overview: Under 110; See labs 10/12 Nonspecific abnormal results of liver function s tudy 10/05/2008 04/28/2011 Overview: ? Due to high-moderate alcohol intake documented as of this encounter (statuses as of 05/21/2022) [facility] History of Past illness Narrative* Problem Noted Date Resolved Date Closed nondisplaced fracture of distal phalanx of right great toe 01/16/2021 11/13/2021 Carotid artery stenosis 06/10/2019 06/11/19 20 Overview: History: history of left carotid stenosis, s/p carotid endarterectomy with bovine patch angioplasty on 06/09. Assessment: incision c/d/i, pain and blood pressure well controlled Plan: - discharge today Elevated prostate specific antigen (PSA) 017 10/21/2017 Osteoarthritis of lumbar spine 12/19/2015 0 04/20/2017 Chronic cough 10/04/2015 05/05/2016 Chronic rhinitis 10/04/2015 04/20/2017 Leg cramps 03/31/2014 10/11/2014 DDD (degenerative disc disease), lumbar 03/08/20 14 04/20/2017 Lens replaced by other means 07/05/2013 History of deep venous thrombosis 09/07/2012 05/17/2013 Rectal bleeding 06/30/2012 08/16/2012 PE (pulmonary embolism) 09/04/2011 04/13/19 13 Degeneration of lumbar or lumbosacral interverte bral disc 08/07/2011 04/13/2012 Lumbosacral spondylosis without myelopathy 08/0610/21/2017 Ureterolithiasis 05/07/2011 04/13/2012 Overview: Right side. Lumbar facet arthropathy 05/05/2011 013 DDD (degenerative disc disease), lumbar 05/05/19 12 04/13/2012 Lumbar spondylosis 05/05/2011 04/13/2012 Left bundle branch block 05/28/2010 014 Perirectal abscess 08/10/2009 05/28/2010 Esophageal reflux 11/10/2008 10/11/2014 Impaired fasting glucose 10/11/2008 013 Overview: Under 110; See labs 10/12 Nonspecific abnormal results of liver function s [place] 10/05/2008 04/28/2011 Overview: ? Due to high-moderate alcohol intake documented as of this encounter (statuses as of 05/22/2022) [facility] History of Past illness Narrative* Problem Noted Date Resolved Date Closed nondisplaced fracture of distal phalanx of right great toe 01/16/2021 11/13/2021 Carotid artery stenosis 06/10/2019 06/11/19 20 Overview: History: history of left carotid stenosis, s/p carotid endarterectomy with bovine patch angioplasty on 06/09. Assessment: incision c/d/i, pain and blood pressure well controlled Plan: - discharge today Elevated prostate specific antigen (PSA) 017 10/21/2017 Osteoarthritis of lumbar spine 12/19/2015 0 04/20/2017 Chronic cough 10/04/2015 05/05/2016 Chronic rhinitis 10/04/2015 04/20/2017 Leg cramps 03/31/2014 10/11/2014 DDD (degenerative disc disease), lumbar 03/08/20 14 04/20/2017 Lens replaced by other means 07/05/2013 History of deep venous thrombosis 09/07/2012 05/17/2013 Rectal bleeding 06/30/2012 08/16/2012 PE (pulmonary embolism) 09/04/2011 04/13/19 13 Degeneration of lumbar or lumbosacral interverte bral disc 08/07/2011 04/13/2012 Lumbosacral spondylosis without myelopathy 08/0610/21/2017 Ureterolithiasis 05/07/2011 04/13/2012 Overview: Right side. Lumbar facet arthropathy 05/05/2011 013 DDD (degenerative disc disease), lumbar 05/05/19 12 04/13/2012 Lumbar spondylosis 05/05/2011 04/13/2012 Left bundle branch block 05/28/2010 014 Perirectal abscess 08/10/2009 05/28/2010 Esophageal reflux 11/10/2008 10/11/2014 Impaired fasting glucose 10/11/2008 013 Overview: Under 110; See labs 10/12 Nonspecific abnormal results of liver function s tudy 10/05/2008 04/28/2011 Overview: ? Due to high-moderate alcohol intake documented as of this encounter (statuses as of 05/26/2022) [facility] History of Past illness Narrative* Problem Noted Date Resolved Date Closed nondisplaced fracture of distal phalanx of right great toe 01/16/2021 11/13/2021 Macular hole of left eye 06/19/2020 023 Carotid artery stenosis 06/10/2019 06/11/19 20 Overview: History: history of left carotid stenosis, s/p carotid endarterectomy with bovine patch angioplasty on 06/09. Assessment: incision c/d/i, pain and blood pressure well controlled Plan: - discharge today Elevated prostate specific antigen (PSA) 017 10/21/2017 Osteoarthritis of lumbar spine 12/19/2015 0 04/20/2017 Chronic cough 10/04/2015 05/05/2016 Chronic rhinitis 10/04/2015 04/20/2017 External hemorrhoid 06/19/2014 06/02/2022 Leg cramps 03/31/2014 10/11/2014 DDD (degenerative disc disease), lumbar 03/08/20 14 04/20/2017 Lens replaced by other means 07/05/2013 History of deep venous thrombosis 09/07/2012 05/17/2013 Rectal bleeding 06/30/2012 08/16/2012 PE (pulmonary embolism) 09/04/2011 04/13/19 13 Degeneration of lumbar or lumbosacral interverte bral disc 08/07/2011 04/13/2012 Lumbosacral spondylosis without myelopathy 08/0610/21/2017 Ureterolithiasis 05/07/2011 04/13/2012 Overview: Right side. Lumbar facet arthropathy 05/05/2011 013 DDD (degenerative disc disease), lumbar 05/05/19 12 04/13/2012 Lumbar spondylosis 05/05/2011 04/13/2012 Left bundle branch block 05/28/2010 014 Perirectal abscess 08/10/2009 05/28/2010 Esophageal reflux 11/10/2008 10/11/2014 Nonspecific abnormal results of liver function s tudy 10/05/2008 04/28/2011 Overview: ? Due to high-moderate alcohol intake documented as of this encounter (statuses as of 06/03/2022) [facility] History of Past illness Narrative* Problem Noted Date Resolved Date Closed nondisplaced fracture of distal phalanx of right great toe 01/16/2021 11/13/2021 Macular hole of left eye 06/19/2020 023 Carotid artery stenosis 06/10/2019 06/11/19 20 Overview: History: history of left carotid stenosis, s/p carotid endarterectomy with bovine patch angioplasty on 06/09. Assessment: incision c/d/i, pain and blood pressure well controlled Plan: - discharge today Elevated prostate specific antigen (PSA) 017 10/21/2017 Osteoarthritis of lumbar spine 12/19/2015 0 04/20/2017 Chronic cough 10/04/2015 05/05/2016 Chronic rhinitis 10/04/2015 04/20/2017 External hemorrhoid 06/19/2014 06/02/2022 Leg cramps 03/31/2014 10/11/2014 DDD (degenerative disc disease), lumbar 03/08/20 14 04/20/2017 Lens replaced by other means 07/05/2013 History of deep venous thrombosis 09/07/2012 05/17/2013 Rectal bleeding 06/30/2012 08/16/2012 PE (pulmonary embolism) 09/04/2011 04/13/19 13 Degeneration of lumbar or lumbosacral interverte bral disc 08/07/2011 04/13/2012 Lumbosacral spondylosis without myelopathy 08/0610/21/2017 Ureterolithiasis 05/07/2011 04/13/2012 Overview: Right side. Lumbar facet arthropathy 05/05/2011 013 DDD (degenerative disc disease), lumbar 05/05/19 12 04/13/2012 Lumbar spondylosis 05/05/2011 04/13/2012 Left bundle branch block 05/28/2010 014 Perirectal abscess 08/10/2009 05/28/2010 Esophageal reflux 11/10/2008 10/11/2014 Nonspecific abnormal results of liver function s tudy 10/05/2008 04/28/2011 Overview: ? Due to high-moderate alcohol intake documented as of this encounter (statuses as of 06/03/2022) [facility] History of Past illness Narrative* Problem Noted Date Resolved Date Closed nondisplaced fracture of distal phalanx of right great toe 01/16/2021 11/13/2021 Macular hole of left eye 06/19/2020 023 Carotid artery stenosis 06/10/2019 06/11/19 20 Overview: History: history of left carotid stenosis, s/p carotid endarterectomy with bovine patch angioplasty on 06/09. Assessment: incision c/d/i, pain and blood pressure well controlled Plan: - discharge today Elevated prostate specific antigen (PSA) 017 10/21/2017 Osteoarthritis of lumbar spine 12/19/2015 0 04/20/2017 Chronic cough 10/04/2015 05/05/2016 Chronic rhinitis 10/04/2015 04/20/2017 External hemorrhoid 06/19/2014 06/02/2022 Leg cramps 03/31/2014 10/11/2014 DDD (degenerative disc disease), lumbar 03/08/20 14 04/20/2017 Lens replaced by other means 07/05/2013 History of deep venous thrombosis 09/07/2012 05/17/2013 Rectal bleeding 06/30/2012 08/16/2012 PE (pulmonary embolism) 09/04/2011 04/13/19 13 Degeneration of lumbar or lumbosacral interverte bral disc 08/07/2011 04/13/2012 Lumbosacral spondylosis without myelopathy 08/0610/21/2017 Ureterolithiasis 05/07/2011 04/13/2012 Overview: Right side. Lumbar facet arthropathy 05/05/2011 013 DDD (degenerative disc disease), lumbar 05/05/19 12 04/13/2012 Lumbar spondylosis 05/05/2011 04/13/2012 Left bundle branch block 05/28/2010 014 Perirectal abscess 08/10/2009 05/28/2010 Esophageal reflux 11/10/2008 10/11/2014 Nonspecific abnormal results of liver function s [place] 10/05/2008 04/28/2011 Overview: ? Due to high-moderate alcohol intake documented as of this encounter (statuses as of 06/04/2022) [facility] History of Past illness Narrative* Problem Noted Date Resolved Date Closed nondisplaced fracture of distal phalanx of right great toe 01/16/2021 11/13/2021 Macular hole of left eye 06/19/2020 023 Carotid artery stenosis 06/10/2019 06/11/19 20 Overview: History: history of left carotid stenosis, s/p carotid endarterectomy with bovine patch angioplasty on 06/09. Assessment: incision c/d/i, pain and blood pressure well controlled Plan: - discharge today Elevated prostate specific antigen (PSA) 017 10/21/2017 Osteoarthritis of lumbar spine 12/19/2015 0 04/20/2017 Chronic cough 10/04/2015 05/05/2016 Chronic rhinitis 10/04/2015 04/20/2017 External hemorrhoid 06/19/2014 06/02/2022 Leg cramps 03/31/2014 10/11/2014 DDD (degenerative disc disease), lumbar 03/08/20 14 04/20/2017 Lens replaced by other means 07/05/2013 History of deep venous thrombosis 09/07/2012 05/17/2013 Rectal bleeding 06/30/2012 08/16/2012 PE (pulmonary embolism) 09/04/2011 04/13/19 13 Degeneration of lumbar or lumbosacral interverte bral disc 08/07/2011 04/13/2012 Lumbosacral spondylosis without myelopathy 08/0610/21/2017 Ureterolithiasis 05/07/2011 04/13/2012 Overview: Right side. Lumbar facet arthropathy 05/05/2011 013 DDD (degenerative disc disease), lumbar 05/05/19 12 04/13/2012 Lumbar spondylosis 05/05/2011 04/13/2012 Left bundle branch block 05/28/2010 014 Perirectal abscess 08/10/2009 05/28/2010 Esophageal reflux 11/10/2008 10/11/2014 Nonspecific abnormal results of liver function s [place] 10/05/2008 04/28/2011 Overview: ? Due to high-moderate alcohol intake documented as of this encounter (statuses as of 06/04/2022) [facility] History of Past illness Narrative* Problem Noted Date Resolved Date Closed nondisplaced fracture of distal phalanx of right great toe 01/16/2021 11/13/2021 Macular hole of left eye 06/19/2020 023 Carotid artery stenosis 06/10/2019 06/11/19 20 Overview: History: history of left carotid stenosis, s/p carotid endarterectomy with bovine patch angioplasty on 06/09. Assessment: incision c/d/i, pain and blood pressure well controlled Plan: - discharge today Elevated prostate specific antigen (PSA) 017 10/21/2017 Osteoarthritis of lumbar spine 12/19/2015 0 04/20/2017 Chronic cough 10/04/2015 05/05/2016 Chronic rhinitis 10/04/2015 04/20/2017 External hemorrhoid 06/19/2014 06/02/2022 Leg cramps 03/31/2014 10/11/2014 DDD (degenerative disc disease), lumbar 03/08/20 14 04/20/2017 Lens replaced by other means 07/05/2013 History of deep venous thrombosis 09/07/2012 05/17/2013 Rectal bleeding 06/30/2012 08/16/2012 PE (pulmonary embolism) 09/04/2011 04/13/19 13 Degeneration of lumbar or lumbosacral interverte bral disc 08/07/2011 04/13/2012 Lumbosacral spondylosis without myelopathy 08/0610/21/2017 Ureterolithiasis 05/07/2011 04/13/2012 Overview: Right side. Lumbar facet arthropathy 05/05/2011 013 DDD (degenerative disc disease), lumbar 05/05/19 12 04/13/2012 Lumbar spondylosis 05/05/2011 04/13/2012 Left bundle branch block 05/28/2010 014 Perirectal abscess 08/10/2009 05/28/2010 Esophageal reflux 11/10/2008 10/11/2014 Nonspecific abnormal results of liver function s tudy 10/05/2008 04/28/2011 Overview: ? Due to high-moderate alcohol intake documented as of this encounter (statuses as of 06/05/2022) [facility] History of Past illness Narrative* Problem Noted Date Resolved Date Closed nondisplaced fracture of distal phalanx of right great toe 01/16/2021 11/13/2021 Macular hole of left eye 06/19/2020 023 Carotid artery stenosis 06/10/2019 06/11/19 20 Overview: History: history of left carotid stenosis, s/p carotid endarterectomy with bovine patch angioplasty on 06/09. Assessment: incision c/d/i, pain and blood pressure well controlled Plan: - discharge today Elevated prostate specific antigen (PSA) 017 10/21/2017 Osteoarthritis of lumbar spine 12/19/2015 0 04/20/2017 Chronic cough 10/04/2015 05/05/2016 Chronic rhinitis 10/04/2015 04/20/2017 External hemorrhoid 06/19/2014 06/02/2022 Leg cramps 03/31/2014 10/11/2014 DDD (degenerative disc disease), lumbar 03/08/20 14 04/20/2017 Lens replaced by other means 07/05/2013 History of deep venous thrombosis 09/07/2012 05/17/2013 Rectal bleeding 06/30/2012 08/16/2012 PE (pulmonary embolism) 09/04/2011 04/13/19 13 Degeneration of lumbar or lumbosacral interverte bral disc 08/07/2011 04/13/2012 Lumbosacral spondylosis without myelopathy 08/0610/21/2017 Ureterolithiasis 05/07/2011 04/13/2012 Overview: Right side. Lumbar facet arthropathy 05/05/2011 013 DDD (degenerative disc disease), lumbar 05/05/19 12 04/13/2012 Lumbar spondylosis 05/05/2011 04/13/2012 Left bundle branch block 05/28/2010 014 Perirectal abscess 08/10/2009 05/28/2010 Esophageal reflux 11/10/2008 10/11/2014 Nonspecific abnormal results of liver function s tudy 10/05/2008 04/28/2011 Overview: ? Due to high-moderate alcohol intake documented as of this encounter (statuses as of 06/09/2022) [facility] History of Past illness Narrative* Problem Noted Date Resolved Date Closed nondisplaced fracture of distal phalanx of right great toe 01/16/2021 11/13/2021 Macular hole of left eye 06/19/2020 023 Carotid artery stenosis 06/10/2019 06/11/19 20 Overview: History: history of left carotid stenosis, s/p carotid endarterectomy with bovine patch angioplasty on 06/09. Assessment: incision c/d/i, pain and blood pressure well controlled Plan: - discharge today Elevated prostate specific antigen (PSA) 017 10/21/2017 Osteoarthritis of lumbar spine 12/19/2015 0 04/20/2017 Chronic cough 10/04/2015 05/05/2016 Chronic rhinitis 10/04/2015 04/20/2017 External hemorrhoid 06/19/2014 06/02/2022 Leg cramps 03/31/2014 10/11/2014 DDD (degenerative disc disease), lumbar 03/08/20 14 04/20/2017 Lens replaced by other means 07/05/2013 History of deep venous thrombosis 09/07/2012 05/17/2013 Rectal bleeding 06/30/2012 08/16/2012 PE (pulmonary embolism) 09/04/2011 04/13/19 13 Degeneration of lumbar or lumbosacral interverte bral disc 08/07/2011 04/13/2012 Lumbosacral spondylosis without myelopathy 08/0610/21/2017 Ureterolithiasis 05/07/2011 04/13/2012 Overview: Right side. Lumbar facet arthropathy 05/05/2011 013 DDD (degenerative disc disease), lumbar 05/05/19 12 04/13/2012 Lumbar spondylosis 05/05/2011 04/13/2012 Left bundle branch block 05/28/2010 014 Perirectal abscess 08/10/2009 05/28/2010 Esophageal reflux 11/10/2008 10/11/2014 Nonspecific abnormal results of liver function s tudy 10/05/2008 04/28/2011 Overview: ? Due to high-moderate alcohol intake documented as of this encounter (statuses as of 06/17/2022) [facility] History of Past illness Narrative* Problem Noted Date Resolved Date Closed nondisplaced fracture of distal phalanx of right great toe 01/16/2021 11/13/2021 Macular hole of left eye 06/19/2020 023 Carotid artery stenosis 06/10/2019 06/11/19 20 Overview: History: history of left carotid stenosis, s/p carotid endarterectomy with bovine patch angioplasty on 06/09. Assessment: incision c/d/i, pain and blood pressure well controlled Plan: - discharge today Elevated prostate specific antigen (PSA) 017 10/21/2017 Osteoarthritis of lumbar spine 12/19/2015 0 04/20/2017 Chronic cough 10/04/2015 05/05/2016 Chronic rhinitis 10/04/2015 04/20/2017 External hemorrhoid 06/19/2014 06/02/2022 Leg cramps 03/31/2014 10/11/2014 DDD (degenerative disc disease), lumbar 03/08/20 14 04/20/2017 Lens replaced by other means 07/05/2013 History of deep venous thrombosis 09/07/2012 05/17/2013 Rectal bleeding 06/30/2012 08/16/2012 PE (pulmonary embolism) 09/04/2011 04/13/19 13 Degeneration of lumbar or lumbosacral interverte bral disc 08/07/2011 04/13/2012 Lumbosacral spondylosis without myelopathy 08/0610/21/2017 Ureterolithiasis 05/07/2011 04/13/2012 Overview: Right side. Lumbar facet arthropathy 05/05/2011 013 DDD (degenerative disc disease), lumbar 05/05/19 12 04/13/2012 Lumbar spondylosis 05/05/2011 04/13/2012 Left bundle branch block 05/28/2010 014 Perirectal abscess 08/10/2009 05/28/2010 Esophageal reflux 11/10/2008 10/11/2014 Nonspecific abnormal results of liver function s [place] 10/05/2008 04/28/2011 Overview: ? Due to high-moderate alcohol intake documented as of this encounter (statuses as of 06/18/2022) [facility] History of Past illness Narrative* Problem Noted Date Resolved Date Closed nondisplaced fracture of distal phalanx of right great toe 01/16/2021 11/13/2021 Macular hole of left eye 06/19/2020 023 Carotid artery stenosis 06/10/2019 06/11/19 20 Overview: History: history of left carotid stenosis, s/p carotid endarterectomy with bovine patch angioplasty on 06/09. Assessment: incision c/d/i, pain and blood pressure well controlled Plan: - discharge today Elevated prostate specific antigen (PSA) 017 10/21/2017 Osteoarthritis of lumbar spine 12/19/2015 0 04/20/2017 Chronic cough 10/04/2015 05/05/2016 Chronic rhinitis 10/04/2015 04/20/2017 External hemorrhoid 06/19/2014 06/02/2022 Leg cramps 03/31/2014 10/11/2014 DDD (degenerative disc disease), lumbar 03/08/20 14 04/20/2017 Lens replaced by other means 07/05/2013 History of deep venous thrombosis 09/07/2012 05/17/2013 Rectal bleeding 06/30/2012 08/16/2012 PE (pulmonary embolism) 09/04/2011 04/13/19 13 Degeneration of lumbar or lumbosacral interverte bral disc 08/07/2011 04/13/2012 Lumbosacral spondylosis without myelopathy 08/0610/21/2017 Ureterolithiasis 05/07/2011 04/13/2012 Overview: Right side. Lumbar facet arthropathy 05/05/2011 013 DDD (degenerative disc disease), lumbar 05/05/19 12 04/13/2012 Lumbar spondylosis 05/05/2011 04/13/2012 Left bundle branch block 05/28/2010 014 Perirectal abscess 08/10/2009 05/28/2010 Esophageal reflux 11/10/2008 10/11/2014 Nonspecific abnormal results of liver function s [place] 10/05/2008 04/28/2011 Overview: ? Due to high-moderate alcohol intake documented as of this encounter (statuses as of 07/02/2022) [facility] History of Past illness Narrative* Problem Noted Date Resolved Date Closed nondisplaced fracture of distal phalanx of right great toe 01/16/2021 11/13/2021 Macular hole of left eye 06/19/2020 023 Carotid artery stenosis 06/10/2019 06/11/19 20 Overview: History: history of left carotid stenosis, s/p carotid endarterectomy with bovine patch angioplasty on 06/09. Assessment: incision c/d/i, pain and blood pressure well controlled Plan: - discharge today Elevated prostate specific antigen (PSA) 017 10/21/2017 Osteoarthritis of lumbar spine 12/19/2015 0 04/20/2017 Chronic cough 10/04/2015 05/05/2016 Chronic rhinitis 10/04/2015 04/20/2017 External hemorrhoid 06/19/2014 06/02/2022 Leg cramps 03/31/2014 10/11/2014 DDD (degenerative disc disease), lumbar 03/08/20 14 04/20/2017 Lens replaced by other means 07/05/2013 History of deep venous thrombosis 09/07/2012 05/17/2013 Rectal bleeding 06/30/2012 08/16/2012 PE (pulmonary embolism) 09/04/2011 04/13/19 13 Degeneration of lumbar or lumbosacral interverte bral disc 08/07/2011 04/13/2012 Lumbosacral spondylosis without myelopathy 08/0610/21/2017 Ureterolithiasis 05/07/2011 04/13/2012 Overview: Right side. Lumbar facet arthropathy 05/05/2011 013 DDD (degenerative disc disease), lumbar 05/05/19 12 04/13/2012 Lumbar spondylosis 05/05/2011 04/13/2012 Left bundle branch block 05/28/2010 014 Perirectal abscess 08/10/2009 05/28/2010 Esophageal reflux 11/10/2008 10/11/2014 Nonspecific abnormal results of liver function s [place] 10/05/2008 04/28/2011 Overview: ? Due to high-moderate alcohol intake documented as of this encounter (statuses as of 07/10/2022) [facility] History of Past illness Narrative* Problem Noted Date Resolved Date Closed nondisplaced fracture of distal phalanx of right great toe 01/16/2021 11/13/2021 Macular hole of left eye 06/19/2020 023 Carotid artery stenosis 06/10/2019 06/11/19 20 Overview: History: history of left carotid stenosis, s/p carotid endarterectomy with bovine patch angioplasty on 06/09. Assessment: incision c/d/i, pain and blood pressure well controlled Plan: - discharge today Elevated prostate specific antigen (PSA) 017 10/21/2017 Osteoarthritis of lumbar spine 12/19/2015 0 04/20/2017 Chronic cough 10/04/2015 05/05/2016 Chronic rhinitis 10/04/2015 04/20/2017 External hemorrhoid 06/19/2014 06/02/2022 Leg cramps 03/31/2014 10/11/2014 DDD (degenerative disc disease), lumbar 03/08/20 14 04/20/2017 Lens replaced by other means 07/05/2013 History of deep venous thrombosis 09/07/2012 05/17/2013 Rectal bleeding 06/30/2012 08/16/2012 PE (pulmonary embolism) 09/04/2011 04/13/19 13 Degeneration of lumbar or lumbosacral interverte bral disc 08/07/2011 04/13/2012 Lumbosacral spondylosis without myelopathy 08/0610/21/2017 Ureterolithiasis 05/07/2011 04/13/2012 Overview: Right side. Lumbar facet arthropathy 05/05/2011 013 DDD (degenerative disc disease), lumbar 05/05/19 12 04/13/2012 Lumbar spondylosis 05/05/2011 04/13/2012 Left bundle branch block 05/28/2010 014 Perirectal abscess 08/10/2009 05/28/2010 Esophageal reflux 11/10/2008 10/11/2014 Nonspecific abnormal results of liver function s [place] 10/05/2008 04/28/2011 Overview: ? Due to high-moderate alcohol intake documented as of this encounter (statuses as of 07/17/2022) [facility] History of Past illness Narrative* Problem Noted Date Resolved Date Closed nondisplaced fracture of distal phalanx of right great toe 01/16/2021 11/13/2021 Macular hole of left eye 06/19/2020 023 Carotid artery stenosis 06/10/2019 06/11/19 20 Overview: History: history of left carotid stenosis, s/p carotid endarterectomy with bovine patch angioplasty on 06/09. Assessment: incision c/d/i, pain and blood pressure well controlled Plan: - discharge today Elevated prostate specific antigen (PSA) 017 10/21/2017 Osteoarthritis of lumbar spine 12/19/2015 0 04/20/2017 Chronic cough 10/04/2015 05/05/2016 Chronic rhinitis 10/04/2015 04/20/2017 External hemorrhoid 06/19/2014 06/02/2022 Leg cramps 03/31/2014 10/11/2014 DDD (degenerative disc disease), lumbar 03/08/20 14 04/20/2017 Lens replaced by other means 07/05/2013 History of deep venous thrombosis 09/07/2012 05/17/2013 Rectal bleeding 06/30/2012 08/16/2012 PE (pulmonary embolism) 09/04/2011 04/13/19 13 Degeneration of lumbar or lumbosacral interverte bral disc 08/07/2011 04/13/2012 Lumbosacral spondylosis without myelopathy 08/0610/21/2017 Ureterolithiasis 05/07/2011 04/13/2012 Overview: Right side. Lumbar facet arthropathy 05/05/2011 013 DDD (degenerative disc disease), lumbar 05/05/19 12 04/13/2012 Lumbar spondylosis 05/05/2011 04/13/2012 Left bundle branch block 05/28/2010 014 Perirectal abscess 08/10/2009 05/28/2010 Esophageal reflux 11/10/2008 10/11/2014 Nonspecific abnormal results of liver function s [place] 10/05/2008 04/28/2011 Overview: ? Due to high-moderate alcohol intake documented as of this encounter (statuses as of 07/30/2022) [facility] History of Past illness Narrative* Problem Noted Date Resolved Date Closed nondisplaced fracture of distal phalanx of right great toe 01/16/2021 11/13/2021 Macular hole of left eye 06/19/2020 023 Carotid artery stenosis 06/10/2019 06/11/19 20 Overview: History: history of left carotid stenosis, s/p carotid endarterectomy with bovine patch angioplasty on 06/09. Assessment: incision c/d/i, pain and blood pressure well controlled Plan: - discharge today Elevated prostate specific antigen (PSA) 017 10/21/2017 Osteoarthritis of lumbar spine 12/19/2015 0 04/20/2017 Chronic cough 10/04/2015 05/05/2016 Chronic rhinitis 10/04/2015 04/20/2017 External hemorrhoid 06/19/2014 06/02/2022 Leg cramps 03/31/2014 10/11/2014 DDD (degenerative disc disease), lumbar 03/08/20 14 04/20/2017 Lens replaced by other means 07/05/2013 History of deep venous thrombosis 09/07/2012 05/17/2013 Rectal bleeding 06/30/2012 08/16/2012 PE (pulmonary embolism) 09/04/2011 04/13/19 13 Degeneration of lumbar or lumbosacral interverte bral disc 08/07/2011 04/13/2012 Lumbosacral spondylosis without myelopathy 08/0610/21/2017 Ureterolithiasis 05/07/2011 04/13/2012 Overview: Right side. Lumbar facet arthropathy 05/05/2011 013 DDD (degenerative disc disease), lumbar 05/05/19 12 04/13/2012 Lumbar spondylosis 05/05/2011 04/13/2012 Left bundle branch block 05/28/2010 014 Perirectal abscess 08/10/2009 05/28/2010 Esophageal reflux 11/10/2008 10/11/2014 Nonspecific abnormal results of liver function s [place]ud[place] 10/05/2008 04/28/2011 Overview: ? Due to high-moderate alcohol intake documented as of this encounter (statuses as of 07/30/2022) [facility] History of Past illness Narrative* Problem Noted Date Resolved Date Closed nondisplaced fracture of distal phalanx of right great toe 01/16/2021 11/13/2021 Macular hole of left eye 06/19/2020 023 Carotid artery stenosis 06/10/2019 06/11/19 20 Overview: History: history of left carotid stenosis, s/p carotid endarterectomy with bovine patch angioplasty on 06/09. Assessment: incision c/d/i, pain and blood pressure well controlled Plan: - discharge today Elevated prostate specific antigen (PSA) 017 10/21/2017 Osteoarthritis of lumbar spine 12/19/2015 0 04/20/2017 Chronic cough 10/04/2015 05/05/2016 Chronic rhinitis 10/04/2015 04/20/2017 External hemorrhoid 06/19/2014 06/02/2022 Leg cramps 03/31/2014 10/11/2014 DDD (degenerative disc disease), lumbar 03/08/20 14 04/20/2017 Lens replaced by other means 07/05/2013 History of deep venous thrombosis 09/07/2012 05/17/2013 Rectal bleeding 06/30/2012 08/16/2012 PE (pulmonary embolism) 09/04/2011 04/13/19 13 Degeneration of lumbar or lumbosacral interverte bral disc 08/07/2011 04/13/2012 Lumbosacral spondylosis without myelopathy 08/0610/21/2017 Ureterolithiasis 05/07/2011 04/13/2012 Overview: Right side. Lumbar facet arthropathy 05/05/2011 013 DDD (degenerative disc disease), lumbar 05/05/19 12 04/13/2012 Lumbar spondylosis 05/05/2011 04/13/2012 Left bundle branch block 05/28/2010 014 Perirectal abscess 08/10/2009 05/28/2010 Esophageal reflux 11/10/2008 10/11/2014 Nonspecific abnormal results of liver function s [place]ud[place] 10/05/2008 04/28/2011 Overview: ? Due to high-moderate alcohol intake documented as of this encounter (statuses as of 08/06/2022) [facility] History of Past illness Narrative* Problem Noted Date Resolved Date Closed nondisplaced fracture of distal phalanx of right great toe 01/16/2021 11/13/2021 Macular hole of left eye 06/19/2020 023 Carotid artery stenosis 06/10/2019 06/11/19 20 Overview: History: history of left carotid stenosis, s/p carotid endarterectomy with bovine patch angioplasty on 06/09. Assessment: incision c/d/i, pain and blood pressure well controlled Plan: - discharge today Elevated prostate specific antigen (PSA) 017 10/21/2017 Osteoarthritis of lumbar spine 12/19/2015 0 04/20/2017 Chronic cough 10/04/2015 05/05/2016 Chronic rhinitis 10/04/2015 04/20/2017 External hemorrhoid 06/19/2014 06/02/2022 Leg cramps 03/31/2014 10/11/2014 DDD (degenerative disc disease), lumbar 03/08/20 14 04/20/2017 Lens replaced by other means 07/05/2013 History of deep venous thrombosis 09/07/2012 05/17/2013 Rectal bleeding 06/30/2012 08/16/2012 PE (pulmonary embolism) 09/04/2011 04/13/19 13 Degeneration of lumbar or lumbosacral interverte bral disc 08/07/2011 04/13/2012 Lumbosacral spondylosis without myelopathy 08/0610/21/2017 Ureterolithiasis 05/07/2011 04/13/2012 Overview: Right side. Lumbar facet arthropathy 05/05/2011 013 DDD (degenerative disc disease), lumbar 05/05/19 12 04/13/2012 Lumbar spondylosis 05/05/2011 04/13/2012 Left bundle branch block 05/28/2010 014 Perirectal abscess 08/10/2009 05/28/2010 Esophageal reflux 11/10/2008 10/11/2014 Nonspecific abnormal results of liver function s [place] 10/05/2008 04/28/2011 Overview: ? Due to high-moderate alcohol intake documented as of this encounter (statuses as of 08/08/2022) [facility] History of Past illness Narrative* Problem Noted Date Resolved Date Closed nondisplaced fracture of distal phalanx of right great toe 01/16/2021 11/13/2021 Macular hole of left eye 06/19/2020 023 Carotid artery stenosis 06/10/2019 06/11/19 20 Overview: History: history of left carotid stenosis, s/p carotid endarterectomy with bovine patch angioplasty on 06/09. Assessment: incision c/d/i, pain and blood pressure well controlled Plan: - discharge today Elevated prostate specific antigen (PSA) 017 10/21/2017 Osteoarthritis of lumbar spine 12/19/2015 0 04/20/2017 Chronic cough 10/04/2015 05/05/2016 Chronic rhinitis 10/04/2015 04/20/2017 External hemorrhoid 06/19/2014 06/02/2022 Leg cramps 03/31/2014 10/11/2014 DDD (degenerative disc disease), lumbar 03/08/20 14 04/20/2017 Lens replaced by other means 07/05/2013 History of deep venous thrombosis 09/07/2012 05/17/2013 Rectal bleeding 06/30/2012 08/16/2012 PE (pulmonary embolism) 09/04/2011 04/13/19 13 Degeneration of lumbar or lumbosacral interverte bral disc 08/07/2011 04/13/2012 Lumbosacral spondylosis without myelopathy 08/0610/21/2017 Ureterolithiasis 05/07/2011 04/13/2012 Overview: Right side. Lumbar facet arthropathy 05/05/2011 013 DDD (degenerative disc disease), lumbar 05/05/19 12 04/13/2012 Lumbar spondylosis 05/05/2011 04/13/2012 Left bundle branch block 05/28/2010 014 Perirectal abscess 08/10/2009 05/28/2010 Esophageal reflux 11/10/2008 10/11/2014 Nonspecific abnormal results of liver function s [place] 10/05/2008 04/28/2011 Overview: ? Due to high-moderate alcohol intake documented as of this encounter (statuses as of 08/12/2022) [facility] History of Past illness Narrative* Problem Noted Date Resolved Date Closed nondisplaced fracture of distal phalanx of right great toe 01/16/2021 11/13/2021 Macular hole of left eye 06/19/2020 023 Carotid artery stenosis 06/10/2019 06/11/19 20 Overview: History: history of left carotid stenosis, s/p carotid endarterectomy with bovine patch angioplasty on 06/09. Assessment: incision c/d/i, pain and blood pressure well controlled Plan: - discharge today Elevated prostate specific antigen (PSA) 017 10/21/2017 Osteoarthritis of lumbar spine 12/19/2015 0 04/20/2017 Chronic cough 10/04/2015 05/05/2016 Chronic rhinitis 10/04/2015 04/20/2017 External hemorrhoid 06/19/2014 06/02/2022 Leg cramps 03/31/2014 10/11/2014 DDD (degenerative disc disease), lumbar 03/08/20 14 04/20/2017 Lens replaced by other means 07/05/2013 History of deep venous thrombosis 09/07/2012 05/17/2013 Rectal bleeding 06/30/2012 08/16/2012 PE (pulmonary embolism) 09/04/2011 04/13/19 13 Degeneration of lumbar or lumbosacral interverte bral disc 08/07/2011 04/13/2012 Lumbosacral spondylosis without myelopathy 08/0610/21/2017 Ureterolithiasis 05/07/2011 04/13/2012 Overview: Right side. Lumbar facet arthropathy 05/05/2011 013 DDD (degenerative disc disease), lumbar 05/05/19 12 04/13/2012 Lumbar spondylosis 05/05/2011 04/13/2012 Left bundle branch block 05/28/2010 014 Perirectal abscess 08/10/2009 05/28/2010 Esophageal reflux 11/10/2008 10/11/2014 Nonspecific abnormal results of liver function s [place] 10/05/2008 04/28/2011 Overview: ? Due to high-moderate alcohol intake documented as of this encounter (statuses as of 09/11/2022) [facility] History of Past illness Narrative* Problem Noted Date Resolved Date Closed nondisplaced fracture of distal phalanx of right great toe 01/16/2021 11/13/2021 Macular hole of left eye 06/19/2020 023 Carotid artery stenosis 06/10/2019 06/11/19 20 Overview: History: history of left carotid stenosis, s/p carotid endarterectomy with bovine patch angioplasty on 06/09. Assessment: incision c/d/i, pain and blood pressure well controlled Plan: - discharge today Elevated prostate specific antigen (PSA) 017 10/21/2017 Osteoarthritis of lumbar spine 12/19/2015 0 04/20/2017 Chronic cough 10/04/2015 05/05/2016 Chronic rhinitis 10/04/2015 04/20/2017 External hemorrhoid 06/19/2014 06/02/2022 Leg cramps 03/31/2014 10/11/2014 DDD (degenerative disc disease), lumbar 03/08/20 14 04/20/2017 Lens replaced by other means 07/05/2013 History of deep venous thrombosis 09/07/2012 05/17/2013 Rectal bleeding 06/30/2012 08/16/2012 PE (pulmonary embolism) 09/04/2011 04/13/19 13 Degeneration of lumbar or lumbosacral interverte bral disc 08/07/2011 04/13/2012 Lumbosacral spondylosis without myelopathy 08/0610/21/2017 Ureterolithiasis 05/07/2011 04/13/2012 Overview: Right side. Lumbar facet arthropathy 05/05/2011 013 DDD (degenerative disc disease), lumbar 05/05/19 12 04/13/2012 Lumbar spondylosis 05/05/2011 04/13/2012 Left bundle branch block 05/28/2010 014 Perirectal abscess 08/10/2009 05/28/2010 Esophageal reflux 11/10/2008 10/11/2014 Nonspecific abnormal results of liver function s [place]ud[place] 10/05/2008 04/28/2011 Overview: ? Due to high-moderate alcohol intake documented as of this encounter (statuses as of 09/03/2022) [facility] History of Past illness Narrative* Problem Noted Date Resolved Date Closed nondisplaced fracture of distal phalanx of right great toe 01/16/2021 11/13/2021 Macular hole of left eye 06/19/2020 023 Carotid artery stenosis 06/10/2019 06/11/19 20 Overview: History: history of left carotid stenosis, s/p carotid endarterectomy with bovine patch angioplasty on 06/09. Assessment: incision c/d/i, pain and blood pressure well controlled Plan: - discharge today Elevated prostate specific antigen (PSA) 017 10/21/2017 Osteoarthritis of lumbar spine 12/19/2015 0 04/20/2017 Chronic cough 10/04/2015 05/05/2016 Chronic rhinitis 10/04/2015 04/20/2017 External hemorrhoid 06/19/2014 06/02/2022 Leg cramps 03/31/2014 10/11/2014 DDD (degenerative disc disease), lumbar 03/08/20 14 04/20/2017 Lens replaced by other means 07/05/2013 History of deep venous thrombosis 09/07/2012 05/17/2013 Rectal bleeding 06/30/2012 08/16/2012 PE (pulmonary embolism) 09/04/2011 04/13/19 13 Degeneration of lumbar or lumbosacral interverte bral disc 08/07/2011 04/13/2012 Lumbosacral spondylosis without myelopathy 08/0610/21/2017 Ureterolithiasis 05/07/2011 04/13/2012 Overview: Right side. Lumbar facet arthropathy 05/05/2011 013 DDD (degenerative disc disease), lumbar 05/05/19 12 04/13/2012 Lumbar spondylosis 05/05/2011 04/13/2012 Left bundle branch block 05/28/2010 014 Perirectal abscess 08/10/2009 05/28/2010 Esophageal reflux 11/10/2008 10/11/2014 Nonspecific abnormal results of liver function s [place] 10/05/2008 04/28/2011 Overview: ? Due to high-moderate alcohol intake documented as of this encounter (statuses as of 09/10/2022) [facility] History of Past illness Narrative* Problem Noted Date Resolved Date Closed nondisplaced fracture of distal phalanx of right great toe 01/16/2021 11/13/2021 Macular hole of left eye 06/19/2020 023 Carotid artery stenosis 06/10/2019 06/11/19 20 Overview: History: history of left carotid stenosis, s/p carotid endarterectomy with bovine patch angioplasty on 06/09. Assessment: incision c/d/i, pain and blood pressure well controlled Plan: - discharge today Elevated prostate specific antigen (PSA) 017 10/21/2017 Osteoarthritis of lumbar spine 12/19/2015 0 04/20/2017 Chronic cough 10/04/2015 05/05/2016 Chronic rhinitis 10/04/2015 04/20/2017 External hemorrhoid 06/19/2014 06/02/2022 Leg cramps 03/31/2014 10/11/2014 DDD (degenerative disc disease), lumbar 03/08/20 14 04/20/2017 Lens replaced by other means 07/05/2013 History of deep venous thrombosis 09/07/2012 05/17/2013 Rectal bleeding 06/30/2012 08/16/2012 PE (pulmonary embolism) 09/04/2011 04/13/19 13 Degeneration of lumbar or lumbosacral interverte bral disc 08/07/2011 04/13/2012 Lumbosacral spondylosis without myelopathy 08/0610/21/2017 Ureterolithiasis 05/07/2011 04/13/2012 Overview: Right side. Lumbar facet arthropathy 05/05/2011 013 DDD (degenerative disc disease), lumbar 05/05/19 12 04/13/2012 Lumbar spondylosis 05/05/2011 04/13/2012 Left bundle branch block 05/28/2010 014 Perirectal abscess 08/10/2009 05/28/2010 Esophageal reflux 11/10/2008 10/11/2014 Nonspecific abnormal results of liver function s [place] 10/05/2008 04/28/2011 Overview: ? Due to high-moderate alcohol intake documented as of this encounter (statuses as of 09/19/2022) [facility] History of Past illness Narrative* Problem Noted Date Resolved Date Closed nondisplaced fracture of distal phalanx of right great toe 01/16/2021 11/13/2021 Macular hole of left eye 06/19/2020 023 Carotid artery stenosis 06/10/2019 06/11/19 20 Overview: History: history of left carotid stenosis, s/p carotid endarterectomy with bovine patch angioplasty on 06/09. Assessment: incision c/d/i, pain and blood pressure well controlled Plan: - discharge today Elevated prostate specific antigen (PSA) 017 10/21/2017 Osteoarthritis of lumbar spine 12/19/2015 0 04/20/2017 Chronic cough 10/04/2015 05/05/2016 Chronic rhinitis 10/04/2015 04/20/2017 External hemorrhoid 06/19/2014 06/02/2022 Leg cramps 03/31/2014 10/11/2014 DDD (degenerative disc disease), lumbar 03/08/20 14 04/20/2017 Lens replaced by other means 07/05/2013 History of deep venous thrombosis 09/07/2012 05/17/2013 Rectal bleeding 06/30/2012 08/16/2012 PE (pulmonary embolism) 09/04/2011 04/13/19 13 Degeneration of lumbar or lumbosacral interverte bral disc 08/07/2011 04/13/2012 Lumbosacral spondylosis without myelopathy 08/0610/21/2017 Ureterolithiasis 05/07/2011 04/13/2012 Overview: Right side. Lumbar facet arthropathy 05/05/2011 013 DDD (degenerative disc disease), lumbar 05/05/19 12 04/13/2012 Lumbar spondylosis 05/05/2011 04/13/2012 Left bundle branch block 05/28/2010 014 Perirectal abscess 08/10/2009 05/28/2010 Esophageal reflux 11/10/2008 10/11/2014 Nonspecific abnormal results of liver function s [place]udy 10/05/2008 04/28/2011 Overview: ? Due to high-moderate alcohol intake documented as of this encounter (statuses as of 09/23/2022) [facility] History of Past illness Narrative* Problem Noted Date Resolved Date Closed nondisplaced fracture of distal phalanx of right great toe 01/16/2021 11/13/2021 Macular hole of left eye 06/19/2020 023 Carotid artery stenosis 06/10/2019 06/11/19 20 Overview: History: history of left carotid stenosis, s/p carotid endarterectomy with bovine patch angioplasty on 06/09. Assessment: incision c/d/i, pain and blood pressure well controlled Plan: - discharge today Elevated prostate specific antigen (PSA) 017 10/21/2017 Osteoarthritis of lumbar spine 12/19/2015 0 04/20/2017 Chronic cough 10/04/2015 05/05/2016 Chronic rhinitis 10/04/2015 04/20/2017 External hemorrhoid 06/19/2014 06/02/2022 Leg cramps 03/31/2014 10/11/2014 DDD (degenerative disc disease), lumbar 03/08/20 14 04/20/2017 Lens replaced by other means 07/05/2013 History of deep venous thrombosis 09/07/2012 05/17/2013 Rectal bleeding 06/30/2012 08/16/2012 PE (pulmonary embolism) 09/04/2011 04/13/19 13 Degeneration of lumbar or lumbosacral interverte bral disc 08/07/2011 04/13/2012 Lumbosacral spondylosis without myelopathy 08/0610/21/2017 Ureterolithiasis 05/07/2011 04/13/2012 Overview: Right side. Lumbar facet arthropathy 05/05/2011 013 DDD (degenerative disc disease), lumbar 05/05/19 12 04/13/2012 Lumbar spondylosis 05/05/2011 04/13/2012 Left bundle branch block 05/28/2010 014 Perirectal abscess 08/10/2009 05/28/2010 Esophageal reflux 11/10/2008 10/11/2014 Nonspecific abnormal results of liver function s [place] 10/05/2008 04/28/2011 Overview: ? Due to high-moderate alcohol intake documented as of this encounter (statuses as of 09/26/2022) [facility] of Past illness Narrative* Problem Noted Date Resolved Date Closed nondisplaced fracture of distal phalanx of right great toe 01/16/2021 11/13/2021 Macular hole of left eye 06/19/2020 023 Carotid artery stenosis 06/10/2019 06/11/19 20 Overview: History: history of left carotid stenosis, s/p carotid endarterectomy with bovine patch angioplasty on 06/09. Assessment: incision c/d/i, pain and blood pressure well controlled Plan: - discharge today Elevated prostate specific antigen (PSA) 017 10/21/2017 Osteoarthritis of lumbar spine 12/19/2015 0 04/20/2017 Chronic cough 10/04/2015 05/05/2016 Chronic rhinitis 10/04/2015 04/20/2017 External hemorrhoid 06/19/2014 06/02/2022 Leg cramps 03/31/2014 10/11/2014 DDD (degenerative disc disease), lumbar 03/08/20 14 04/20/2017 Lens replaced by other means 07/05/2013 History of deep venous thrombosis 09/07/2012 05/17/2013 Rectal bleeding 06/30/2012 08/16/2012 PE (pulmonary embolism) 09/04/2011 04/13/19 13 Degeneration of lumbar or lumbosacral interverte bral disc 08/07/2011 04/13/2012 Lumbosacral spondylosis without myelopathy 08/0610/21/2017 Ureterolithiasis 05/07/2011 04/13/2012 Overview: Right side. Lumbar facet arthropathy 05/05/2011 013 DDD (degenerative disc disease), lumbar 05/05/19 12 04/13/2012 Lumbar spondylosis 05/05/2011 04/13/2012 Left bundle branch block 05/28/2010 014 Perirectal abscess 08/10/2009 05/28/2010 Esophageal reflux 11/10/2008 10/11/2014 Nonspecific abnormal results of liver function s [place]ud[place] 10/05/2008 04/28/2011 Overview: ? Due to high-moderate alcohol intake documented as of this encounter (statuses as of 10/01/2022) [facility] of Past illness Narrative* Problem Noted Date Resolved Date Closed nondisplaced fracture of distal phalanx of right great toe 01/16/2021 11/13/2021 Macular hole of left eye 06/19/2020 023 Carotid artery stenosis 06/10/2019 06/11/19 20 Overview: History: history of left carotid stenosis, s/p carotid endarterectomy with bovine patch angioplasty on 06/09. Assessment: incision c/d/i, pain and blood pressure well controlled Plan: - discharge today Elevated prostate specific antigen (PSA) 017 10/21/2017 Osteoarthritis of lumbar spine 12/19/2015 0 04/20/2017 Chronic cough 10/04/2015 05/05/2016 Chronic rhinitis 10/04/2015 04/20/2017 External hemorrhoid 06/19/2014 06/02/2022 Leg cramps 03/31/2014 10/11/2014 DDD (degenerative disc disease), lumbar 03/08/20 14 04/20/2017 Lens replaced by other means 07/05/2013 History of deep venous thrombosis 09/07/2012 05/17/2013 Rectal bleeding 06/30/2012 08/16/2012 PE (pulmonary embolism) 09/04/2011 04/13/19 13 Degeneration of lumbar or lumbosacral interverte bral disc 08/07/2011 04/13/2012 Lumbosacral spondylosis without myelopathy 08/0610/21/2017 Ureterolithiasis 05/07/2011 04/13/2012 Overview: Right side. Lumbar facet arthropathy 05/05/2011 013 DDD (degenerative disc disease), lumbar 05/05/19 12 04/13/2012 Lumbar spondylosis 05/05/2011 04/13/2012 Left bundle branch block 05/28/2010 014 Perirectal abscess 08/10/2009 05/28/2010 Esophageal reflux 11/10/2008 10/11/2014 Nonspecific abnormal results of liver function s tudy 10/05/2008 04/28/2011 Overview: ? Due to high-moderate alcohol intake documented as of this encounter (statuses as of 10/02/2022) [facility] of Past illness Narrative* Problem Noted Date Diagnosed Date Resolved Date Closed nondisplaced fracture of distal phalanx of right great toe 01/16/2021 11/13/2021 Macular hole of left eye 06/19/2020 Carotid artery stenosis 06/10/2019 03/0 10/2019 Overview: History: history of left carotid stenosis, s/p carotid endarterectomy with bovine patch angioplasty on 06/09. Assessment: incision c/d/i, pain and blood pressure well controlled Plan: - discharge today Elevated prostate specific antigen (PSA) 09/15/2016 10/21/2017 Osteoarthritis of lumbar spine 12/19/2015 04/20/2017 Chronic cough 10/04/2015 05/05/2016 Chronic rhinitis 10/04/2015 04/20/2017 External hemorrhoid 06/19/2014 06/02/19 Leg cramps 03/31/2014 10/11/2014 DDD (degenerative disc disease), lumbar 03/08/2014 04/20/2017 Lens replaced by other means 07/05/2013 04/20/2017 History of deep venous thrombosis 09/07/2012 05/17/2013 Rectal bleeding 06/30/2012 08/16/2012 PE (pulmonary embolism) 09/04/201111/2012 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 Lumbar facet arthropathy 05/05/201111/2012 DDD (degenerative disc disease), lumbar 05/05/2011 04/13/2012 Lumbar spondylosis 05/05/2011 3 Left bundle branch block 05/28/201003/2014 Perirectal abscess 08/10/2009 1 Esophageal reflux 11/10/2008 10/11/2014 Nonspecific abnormal results of liver function study 10/05/2008 04/28/2011 Overview: ? Due to high-moderate alcohol intake documented as of this encounter (statuses as of 10/14/2022) [facility]21 History of Past illness Narrative* Problem Noted Date Diagnosed Date Resolved Date Closed nondisplaced fracture of distal phalanx of right great toe 01/16/2021 11/13/2021 Macular hole of left eye 06/19/2020 Carotid artery stenosis 06/10/201910/2019 Overview: History: history of left carotid stenosis, s/p carotid endarterectomy with bovine patch angioplasty on 06/09. Assessment: incision c/d/i, pain and blood pressure well controlled Plan: - discharge today Elevated prostate specific antigen (PSA) 09/15/2016 10/21/2017 Osteoarthritis of lumbar spine 12/19/2015 04/20/2017 Chronic cough 10/04/2015 05/05/2016 Chronic rhinitis 10/04/2015 04/20/2017 External hemorrhoid 06/19/2014 06/02/19 23 Leg cramps 03/31/2014 10/11/2014 DDD (degenerative disc disease), lumbar 03/08/2014 04/20/2017 Lens replaced by other means 07/05/2013 04/20/2017 History of deep venous thrombosis 09/07/2012 05/17/2013 Rectal bleeding 06/30/2012 08/16/2012 PE (pulmonary embolism) 09/04/201111/2012 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 Lumbar facet arthropathy 05/05/201111/2012 DDD (degenerative disc disease), lumbar 05/05/2011 04/13/2012 Lumbar spondylosis 05/05/2011 3 Left bundle branch block 05/28/201003/2014 Perirectal abscess 08/10/2009 1 Esophageal reflux 11/10/2008 10/11/2014 Nonspecific abnormal results of liver function study 10/05/2008 04/28/2011 Overview: ? Due to high-moderate alcohol intake documented as of this encounter (statuses as of 10/17/2022) [facility] History of Past illness Narrative* Problem Noted Date Diagnosed Date Resolved Date Closed nondisplaced fracture of distal phalanx of right great toe 01/16/2021 11/13/2021 Macular hole of left eye 06/19/2020 Carotid artery stenosis 06/10/201910/2019 Overview: History: history of left carotid stenosis, s/p carotid endarterectomy with bovine patch angioplasty on 06/09. Assessment: incision c/d/i, pain and blood pressure well controlled Plan: - discharge today Elevated prostate specific antigen (PSA) 09/15/2016 10/21/2017 Osteoarthritis of lumbar spine 12/19/2015 04/20/2017 Chronic cough 10/04/2015 05/05/2016 Chronic rhinitis 10/04/2015 04/20/2017 External hemorrhoid 06/19/2014 06/02/19 23 Leg cramps 03/31/2014 10/11/2014 DDD (degenerative disc disease), lumbar 03/08/2014 04/20/2017 Lens replaced by other means 07/05/2013 04/20/2017 History of deep venous thrombosis 09/07/2012 05/17/2013 Rectal bleeding 06/30/2012 08/16/2012 PE (pulmonary embolism) 09/04/201111/2012 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 Lumbar facet arthropathy 05/05/201111/2012 DDD (degenerative disc disease), lumbar 05/05/2011 04/13/2012 Lumbar spondylosis 05/05/2011 3 Left bundle branch block 05/28/201003/2014 Perirectal abscess 08/10/2009 1 Esophageal reflux 11/10/2008 10/11/2014 Nonspecific abnormal results of liver function study 10/05/2008 04/28/2011 Overview: ? Due to high-moderate alcohol intake documented as of this encounter (statuses as of 10/29/2022) [facility] History of Past illness Narrative* Problem Noted Date Diagnosed Date Resolved Date Closed nondisplaced fracture of distal phalanx of right great toe 01/16/2021 11/13/2021 Macular hole of left eye 06/19/2020 Carotid artery stenosis 06/10/2019 0310/2019 Overview: History: history of left carotid stenosis, s/p carotid endarterectomy with bovine patch angioplasty on 06/09. Assessment: incision c/d/i, pain and blood pressure well controlled Plan: - discharge today Elevated prostate specific antigen (PSA) 09/15/2016 10/21/2017 Osteoarthritis of lumbar spine 12/19/2015 04/20/2017 Chronic cough 10/04/2015 05/05/2016 Chronic rhinitis 10/04/2015 04/20/2017 External hemorrhoid 06/19/2014 06/02/19 23 Leg cramps 03/31/2014 10/11/2014 DDD (degenerative disc disease), lumbar 03/08/2014 04/20/2017 Lens replaced by other means 07/05/2013 04/20/2017 History of deep venous thrombosis 09/07/2012 05/17/2013 Rectal bleeding 06/30/2012 08/16/2012 PE (pulmonary embolism) 09/04/201111/2012 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 Lumbar facet arthropathy 05/05/201111/2012 DDD (degenerative disc disease), lumbar 05/05/2011 04/13/2012 Lumbar spondylosis 05/05/2011 3 Left bundle branch block 05/28/201003/2014 Perirectal abscess 08/10/2009 1 Esophageal reflux 11/10/2008 10/11/2014 Nonspecific abnormal results of liver function study 10/05/2008 04/28/2011 Overview: ? Due to high-moderate alcohol intake documented as of this encounter (statuses as of 11/06/2022) [facility] History of Past illness Narrative* Problem Noted Date Diagnosed Date Resolved Date Closed nondisplaced fracture of distal phalanx of right great toe 01/16/2021 11/13/2021 Macular hole of left eye 06/19/2020 Carotid artery stenosis 06/10/201910/2019 Overview: History: history of left carotid stenosis, s/p carotid endarterectomy with bovine patch angioplasty on 06/09. Assessment: incision c/d/i, pain and blood pressure well controlled Plan: - discharge today Elevated prostate specific antigen (PSA) 09/15/2016 10/21/2017 Osteoarthritis of lumbar spine 12/19/2015 04/20/2017 Chronic cough 10/04/2015 05/05/2016 Chronic rhinitis 10/04/2015 04/20/2017 External hemorrhoid 06/19/2014 06/02/19 Leg cramps 03/31/2014 10/11/2014 DDD (degenerative disc disease), lumbar 03/08/2014 04/20/2017 Lens replaced by other means 07/05/2013 04/20/2017 History of deep venous thrombosis 09/07/2012 05/17/2013 Rectal bleeding 06/30/2012 08/16/2012 PE (pulmonary embolism) 09/04/201111/2012 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 Lumbar facet arthropathy 05/05/201111/2012 DDD (degenerative disc disease), lumbar 05/05/2011 04/13/2012 Lumbar spondylosis 05/05/2011 3 Left bundle branch block 05/28/201003/2014 Perirectal abscess 08/10/2009 1 Esophageal reflux 11/10/2008 10/11/2014 Nonspecific abnormal results of liver function study 10/05/2008 04/28/2011 Overview: ? Due to high-moderate alcohol intake documented as of this encounter (statuses as of 11/07/2022) [facility] History of Past illness Narrative* Problem Noted Date Diagnosed Date Resolved Date Closed nondisplaced fracture of distal phalanx of right great toe 01/16/2021 11/13/2021 Macular hole of left eye 06/19/2020 Carotid artery stenosis 06/10/2019 0310/2019 Overview: History: history of left carotid stenosis, s/p carotid endarterectomy with bovine patch angioplasty on 06/09. Assessment: incision c/d/i, pain and blood pressure well controlled Plan: - discharge today Elevated prostate specific antigen (PSA) 09/15/2016 10/21/2017 Osteoarthritis of lumbar spine 12/19/2015 04/20/2017 Chronic cough 10/04/2015 05/05/2016 Chronic rhinitis 10/04/2015 04/20/2017 External hemorrhoid 06/19/2014 06/02/19 Leg cramps 03/31/2014 10/11/2014 DDD (degenerative disc disease), lumbar 03/08/2014 04/20/2017 Lens replaced by other means 07/05/2013 04/20/2017 History of deep venous thrombosis 09/07/2012 05/17/2013 Rectal bleeding 06/30/2012 08/16/2012 PE (pulmonary embolism) 09/04/201111/2012 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 Lumbar facet arthropathy 05/05/201111/2012 DDD (degenerative disc disease), lumbar 05/05/2011 04/13/2012 Lumbar spondylosis 05/05/2011 3 Left bundle branch block 05/28/201003/2014 Perirectal abscess 08/10/2009 1 Esophageal reflux 11/10/2008 10/11/2014 Nonspecific abnormal results of liver function study 10/05/2008 04/28/2011 Overview: ? Due to high-moderate alcohol intake documented as of this encounter (statuses as of 11/10/2022) [facility] History of Past illness Narrative* Problem Noted Date Diagnosed Date Resolved Date Closed nondisplaced fracture of distal phalanx of right great toe 01/16/2021 11/13/2021 Macular hole of left eye 06/19/2020 Carotid artery stenosis 06/10/201910/2019 Overview: History: history of left carotid stenosis, s/p carotid endarterectomy with bovine patch angioplasty on 06/09. Assessment: incision c/d/i, pain and blood pressure well controlled Plan: - discharge today Elevated prostate specific antigen (PSA) 09/15/2016 10/21/2017 Osteoarthritis of lumbar spine 12/19/2015 04/20/2017 Chronic cough 10/04/2015 05/05/2016 Chronic rhinitis 10/04/2015 04/20/2017 External hemorrhoid 06/19/2014 06/02/19 Leg cramps 03/31/2014 10/11/2014 DDD (degenerative disc disease), lumbar 03/08/2014 04/20/2017 Lens replaced by other means 07/05/2013 04/20/2017 History of deep venous thrombosis 09/07/2012 05/17/2013 Rectal bleeding 06/30/2012 08/16/2012 PE (pulmonary embolism) 09/04/201111/2012 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 Lumbar facet arthropathy 05/05/201111/2012 DDD (degenerative disc disease), lumbar 05/05/2011 04/13/2012 Lumbar spondylosis 05/05/2011 3 Left bundle branch block 05/28/201003/2014 Perirectal abscess 08/10/2009 1 Esophageal reflux 11/10/2008 10/11/2014 Nonspecific abnormal results of liver function study 10/05/2008 04/28/2011 Overview: ? Due to high-moderate alcohol intake documented as of this encounter (statuses as of 11/11/2022) [facility] History of Past illness Narrative* Problem Noted Date Diagnosed Date Resolved Date Closed nondisplaced fracture of distal phalanx of right great toe 01/16/2021 11/13/2021 Macular hole of left eye 06/19/2020 Carotid artery stenosis 06/10/2019 03/0 10/2019 Overview: History: history of left carotid stenosis, s/p carotid endarterectomy with bovine patch angioplasty on 06/09. Assessment: incision c/d/i, pain and blood pressure well controlled Plan: - discharge today Elevated prostate specific antigen (PSA) 09/15/2016 10/21/2017 Osteoarthritis of lumbar spine 12/19/2015 04/20/2017 Chronic cough 10/04/2015 05/05/2016 Chronic rhinitis 10/04/2015 04/20/2017 External hemorrhoid 06/19/2014 06/02/19 23 Leg cramps 03/31/2014 10/11/2014 DDD (degenerative disc disease), lumbar 03/08/2014 04/20/2017 Lens replaced by other means 07/05/2013 04/20/2017 History of deep venous thrombosis 09/07/2012 05/17/2013 Rectal bleeding 06/30/2012 08/16/2012 PE (pulmonary embolism) 09/04/201111/2012 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 Lumbar facet arthropathy 05/05/201111/2012 DDD (degenerative disc disease), lumbar 05/05/2011 04/13/2012 Lumbar spondylosis 05/05/2011 3 Left bundle branch block 05/28/201003/2014 Perirectal abscess 08/10/2009 1 Esophageal reflux 11/10/2008 10/11/2014 Nonspecific abnormal results of liver function study 10/05/2008 04/28/2011 Overview: ? Due to high-moderate alcohol intake documented as of this encounter (statuses as of 11/11/2022) [facility] History of Past illness Narrative* Problem Noted Date Diagnosed Date Resolved Date Closed nondisplaced fracture of distal phalanx of right great toe 01/16/2021 11/13/2021 Macular hole of left eye 06/19/2020 Carotid artery stenosis 06/10/2019 0310/2019 Overview: History: history of left carotid stenosis, s/p carotid endarterectomy with bovine patch angioplasty on 06/09. Assessment: incision c/d/i, pain and blood pressure well controlled Plan: - discharge today Elevated prostate specific antigen (PSA) 09/15/2016 10/21/2017 Osteoarthritis of lumbar spine 12/19/2015 04/20/2017 Chronic cough 10/04/2015 05/05/2016 Chronic rhinitis 10/04/2015 04/20/2017 External hemorrhoid 06/19/2014 06/02/19 Leg cramps 03/31/2014 10/11/2014 DDD (degenerative disc disease), lumbar 03/08/2014 04/20/2017 Lens replaced by other means 07/05/2013 04/20/2017 History of deep venous thrombosis 09/07/2012 05/17/2013 Rectal bleeding 06/30/2012 08/16/2012 PE (pulmonary embolism) 09/04/201111/2012 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 Lumbar facet arthropathy 05/05/201111/2012 DDD (degenerative disc disease), lumbar 05/05/2011 04/13/2012 Lumbar spondylosis 05/05/2011 3 Left bundle branch block 05/28/201003/2014 Perirectal abscess 08/10/2009 1 Esophageal reflux 11/10/2008 10/11/2014 Nonspecific abnormal results of liver function study 10/05/2008 04/28/2011 Overview: ? Due to high-moderate alcohol intake documented as of this encounter (statuses as of 11/12/2022) [facility] History of Past illness Narrative* Problem Noted Date Diagnosed Date Resolved Date Closed nondisplaced fracture of distal phalanx of right great toe 01/16/2021 11/13/2021 Macular hole of left eye 06/19/2020 Carotid artery stenosis 06/10/201909/2019 Overview: History: history of left carotid stenosis, s/p carotid endarterectomy with bovine patch angioplasty on 06/09. Assessment: incision c/d/i, pain and blood pressure well controlled Plan: - discharge today Elevated prostate specific antigen (PSA) 09/15/2016 10/21/2017 Osteoarthritis of lumbar spine 12/19/2015 04/20/2017 Chronic cough 10/04/2015 05/05/2016 Chronic rhinitis 10/04/2015 04/20/2017 External hemorrhoid 06/19/2014 06/02/19 Leg cramps 03/31/2014 10/11/2014 DDD (degenerative disc disease), lumbar 03/08/2014 04/20/2017 Lens replaced by other means 07/05/2013 04/20/2017 History of deep venous thrombosis 09/07/2012 05/17/2013 Rectal bleeding 06/30/2012 08/16/2012 PE (pulmonary embolism) 09/04/201111/2012 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 Lumbar facet arthropathy 05/05/201111/2012 DDD (degenerative disc disease), lumbar 05/05/2011 04/13/2012 Lumbar spondylosis 05/05/2011 3 Left bundle branch block 05/28/201003/2014 Perirectal abscess 08/10/2009 1 Esophageal reflux 11/10/2008 10/11/2014 Nonspecific abnormal results of liver function study 10/05/2008 04/28/2011 Overview: ? Due to high-moderate alcohol intake documented as of this encounter (statuses as of 11/13/2022) [facility] History of Past illness Narrative* Problem Noted Date Diagnosed Date Resolved Date Closed nondisplaced fracture of distal phalanx of right great toe 01/16/2021 11/13/2021 Macular hole of left eye 06/19/2020 Carotid artery stenosis 06/10/201910/2019 Overview: History: history of left carotid stenosis, s/p carotid endarterectomy with bovine patch angioplasty on 06/09. Assessment: incision c/d/i, pain and blood pressure well controlled Plan: - discharge today Elevated prostate specific antigen (PSA) 09/15/2016 10/21/2017 Osteoarthritis of lumbar spine 12/19/2015 04/20/2017 Chronic cough 10/04/2015 05/05/2016 Chronic rhinitis 10/04/2015 04/20/2017 External hemorrhoid 06/19/2014 06/02/19 23 Leg cramps 03/31/2014 10/11/2014 DDD (degenerative disc disease), lumbar 03/08/2014 04/20/2017 Lens replaced by other means 07/05/2013 04/20/2017 History of deep venous thrombosis 09/07/2012 05/17/2013 Rectal bleeding 06/30/2012 08/16/2012 PE (pulmonary embolism) 09/04/201111/2012 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 Lumbar facet arthropathy 05/05/201111/2012 DDD (degenerative disc disease), lumbar 05/05/2011 04/13/2012 Lumbar spondylosis 05/05/2011 3 Left bundle branch block 05/28/201003/2014 Perirectal abscess 08/10/2009 1 Esophageal reflux 11/10/2008 10/11/2014 Nonspecific abnormal results of liver function study 10/05/2008 04/28/2011 Overview: ? Due to high-moderate alcohol intake documented as of this encounter (statuses as of 11/19/2022) [facility] History of Past illness Narrative* Problem Noted Date Diagnosed Date Resolved Date Closed nondisplaced fracture of distal phalanx of right great toe 01/16/2021 11/13/2021 Macular hole of left eye 06/19/2020 Carotid artery stenosis 06/10/2019 03/0 10/2019 Overview: History: history of left carotid stenosis, s/p carotid endarterectomy with bovine patch angioplasty on 06/09. Assessment: incision c/d/i, pain and blood pressure well controlled Plan: - discharge today Elevated prostate specific antigen (PSA) 09/15/2016 10/21/2017 Osteoarthritis of lumbar spine 12/19/2015 04/20/2017 Chronic cough 10/04/2015 05/05/2016 Chronic rhinitis 10/04/2015 04/20/2017 External hemorrhoid 06/19/2014 06/02/19 Leg cramps 03/31/2014 10/11/2014 DDD (degenerative disc disease), lumbar 03/08/2014 04/20/2017 Lens replaced by other means 07/05/2013 04/20/2017 History of deep venous thrombosis 09/07/2012 05/17/2013 Rectal bleeding 06/30/2012 08/16/2012 PE (pulmonary embolism) 09/04/201111/2012 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 Lumbar facet arthropathy 05/05/201111/2012 DDD (degenerative disc disease), lumbar 05/05/2011 04/13/2012 Lumbar spondylosis 05/05/2011 3 Left bundle branch block 05/28/201003/2014 Perirectal abscess 08/10/2009 1 Esophageal reflux 11/10/2008 10/11/2014 Nonspecific abnormal results of liver function study 10/05/2008 04/28/2011 Overview: ? Due to high-moderate alcohol intake documented as of this encounter (statuses as of 11/19/2022) [facility] History of Past illness Narrative* Problem Noted Date Diagnosed Date Resolved Date Closed nondisplaced fracture of distal phalanx of right great toe 01/16/2021 11/13/2021 Macular hole of left eye 06/19/2020 Carotid artery stenosis 06/10/201910/2019 Overview: History: history of left carotid stenosis, s/p carotid endarterectomy with bovine patch angioplasty on 06/09. Assessment: incision c/d/i, pain and blood pressure well controlled Plan: - discharge today Elevated prostate specific antigen (PSA) 09/15/2016 10/21/2017 Osteoarthritis of lumbar spine 12/19/2015 04/20/2017 Chronic cough 10/04/2015 05/05/2016 Chronic rhinitis 10/04/2015 04/20/2017 External hemorrhoid 06/19/2014 06/02/19 Leg cramps 03/31/2014 10/11/2014 DDD (degenerative disc disease), lumbar 03/08/2014 04/20/2017 Lens replaced by other means 07/05/2013 04/20/2017 History of deep venous thrombosis 09/07/2012 05/17/2013 Rectal bleeding 06/30/2012 08/16/2012 PE (pulmonary embolism) 09/04/201111/2012 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 Lumbar facet arthropathy 05/05/201111/2012 DDD (degenerative disc disease), lumbar 05/05/2011 04/13/2012 Lumbar spondylosis 05/05/2011 3 Left bundle branch block 05/28/201003/2014 Perirectal abscess 08/10/2009 1 Esophageal reflux 11/10/2008 10/11/2014 Nonspecific abnormal results of liver function study 10/05/2008 04/28/2011 Overview: ? Due to high-moderate alcohol intake documented as of this encounter (statuses as of 11/25/2022) [facility] History of Past illness Narrative* Problem Noted Date Diagnosed Date Resolved Date Closed nondisplaced fracture of distal phalanx of right great toe 01/16/2021 11/13/2021 Macular hole of left eye 06/19/2020 Carotid artery stenosis 06/10/201910/2019 Overview: History: history of left carotid stenosis, s/p carotid endarterectomy with bovine patch angioplasty on 06/09. Assessment: incision c/d/i, pain and blood pressure well controlled Plan: - discharge today Elevated prostate specific antigen (PSA) 09/15/2016 10/21/2017 Osteoarthritis of lumbar spine 12/19/2015 04/20/2017 Chronic cough 10/04/2015 05/05/2016 Chronic rhinitis 10/04/2015 04/20/2017 External hemorrhoid 06/19/2014 06/02/19 23 Leg cramps 03/31/2014 10/11/2014 DDD (degenerative disc disease), lumbar 03/08/2014 04/20/2017 Lens replaced by other means 07/05/2013 04/20/2017 History of deep venous thrombosis 09/07/2012 05/17/2013 Rectal bleeding 06/30/2012 08/16/2012 PE (pulmonary embolism) 09/04/201111/2012 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 Lumbar facet arthropathy 05/05/201111/2012 DDD (degenerative disc disease), lumbar 05/05/2011 04/13/2012 Lumbar spondylosis 05/05/2011 3 Left bundle branch block 05/28/201003/2014 Perirectal abscess 08/10/2009 1 Esophageal reflux 11/10/2008 10/11/2014 Nonspecific abnormal results of liver function study 10/05/2008 04/28/2011 Overview: ? Due to high-moderate alcohol intake documented as of this encounter (statuses as of 12/02/2022) [facility] History of Past illness Narrative* Problem Noted Date Diagnosed Date Resolved Date Closed nondisplaced fracture of distal phalanx of right great toe 01/16/2021 11/13/2021 Macular hole of left eye 06/19/2020 Carotid artery stenosis 06/10/201910/2019 Overview: History: history of left carotid stenosis, s/p carotid endarterectomy with bovine patch angioplasty on 06/09. Assessment: incision c/d/i, pain and blood pressure well controlled Plan: - discharge today Elevated prostate specific antigen (PSA) 09/15/2016 10/21/2017 Osteoarthritis of lumbar spine 12/19/2015 04/20/2017 Chronic cough 10/04/2015 05/05/2016 Chronic rhinitis 10/04/2015 04/20/2017 External hemorrhoid 06/19/2014 06/02/19 23 Leg cramps 03/31/2014 10/11/2014 DDD (degenerative disc disease), lumbar 03/08/2014 04/20/2017 Lens replaced by other means 07/05/2013 04/20/2017 History of deep venous thrombosis 09/07/2012 05/17/2013 Rectal bleeding 06/30/2012 08/16/2012 PE (pulmonary embolism) 09/04/201111/2012 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 Lumbar facet arthropathy 05/05/201111/2012 DDD (degenerative disc disease), lumbar 05/05/2011 04/13/2012 Lumbar spondylosis 05/05/2011 3 Left bundle branch block 05/28/201003/2014 Perirectal abscess 08/10/2009 1 Esophageal reflux 11/10/2008 10/11/2014 Nonspecific abnormal results of liver function study 10/05/2008 04/28/2011 Overview: ? Due to high-moderate alcohol intake documented as of this encounter (statuses as of 12/03/2022) [facility] [facility] History of Past illness Narrative* Problem Noted Date Diagnosed Date Resolved Date Closed nondisplaced fracture of distal phalanx of right great toe 01/16/2021 11/13/2021 Macular hole of left eye 06/19/2020 Carotid artery stenosis 06/10/2019 0310/2019 Overview: History: history of left carotid stenosis, s/p carotid endarterectomy with bovine patch angioplasty on 06/09. Assessment: incision c/d/i, pain and blood pressure well controlled Plan: - discharge today Elevated prostate specific antigen (PSA) 09/15/2016 10/21/2017 Osteoarthritis of lumbar spine 12/19/2015 04/20/2017 Chronic cough 10/04/2015 05/05/2016 Chronic rhinitis 10/04/2015 04/20/2017 External hemorrhoid 06/19/2014 06/02/19 23 Leg cramps 03/31/2014 10/11/2014 DDD (degenerative disc disease), lumbar 03/08/2014 04/20/2017 Lens replaced by other means 07/05/2013 04/20/2017 History of deep venous thrombosis 09/07/2012 05/17/2013 Rectal bleeding 06/30/2012 08/16/2012 PE (pulmonary embolism) 09/04/201111/2012 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 Lumbar facet arthropathy 05/05/201111/2012 DDD (degenerative disc disease), lumbar 05/05/2011 04/13/2012 Lumbar spondylosis 05/05/2011 3 Left bundle branch block 05/28/201003/2014 Perirectal abscess 08/10/2009 1 Esophageal reflux 11/10/2008 10/11/2014 Nonspecific abnormal results of liver function study 10/05/2008 04/28/2011 Overview: ? Due to high-moderate alcohol intake documented as of this encounter (statuses as of 12/04/2022) [facility]10-13[facility]21 History of Past illness Narrative* Problem Noted Date Diagnosed Date Resolved Date Closed nondisplaced fracture of distal phalanx of right great toe 01/16/2021 11/13/2021 Macular hole of left eye 06/19/2020 Carotid artery stenosis 06/10/201910/2019 Overview: History: history of left carotid stenosis, s/p carotid endarterectomy with bovine patch angioplasty on 06/09. Assessment: incision c/d/i, pain and blood pressure well controlled Plan: - discharge today Elevated prostate specific antigen (PSA) 09/15/2016 10/21/2017 Osteoarthritis of lumbar spine 12/19/2015 04/20/2017 Chronic cough 10/04/2015 05/05/2016 Chronic rhinitis 10/04/2015 04/20/2017 External hemorrhoid 06/19/2014 06/02/19 23 Leg cramps 03/31/2014 10/11/2014 DDD (degenerative disc disease), lumbar 03/08/2014 04/20/2017 Lens replaced by other means 07/05/2013 04/20/2017 History of deep venous thrombosis 09/07/2012 05/17/2013 Rectal bleeding 06/30/2012 08/16/2012 PE (pulmonary embolism) 09/04/201111/2012 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 Lumbar facet arthropathy 05/05/201111/2012 DDD (degenerative disc disease), lumbar 05/05/2011 04/13/2012 Lumbar spondylosis 05/05/2011 3 Left bundle branch block 05/28/201003/2014 Perirectal abscess 08/10/2009 1 Esophageal reflux 11/10/2008 10/11/2014 Nonspecific abnormal results of liver function study 10/05/2008 04/28/2011 Overview: ? Due to high-moderate alcohol intake documented as of this encounter (statuses as of 12/06/2022) [facility]10-13[facility]21 History of Past illness Narrative* Problem Noted Date Diagnosed Date Resolved Date Closed nondisplaced fracture of distal phalanx of right great toe 01/16/2021 11/13/2021 Macular hole of left eye 06/19/2020 Carotid artery stenosis 06/10/2019 0310/2019 Overview: History: history of left carotid stenosis, s/p carotid endarterectomy with bovine patch angioplasty on 06/09. Assessment: incision c/d/i, pain and blood pressure well controlled Plan: - discharge today Elevated prostate specific antigen (PSA) 09/15/2016 10/21/2017 Osteoarthritis of lumbar spine 12/19/2015 04/20/2017 Chronic cough 10/04/2015 05/05/2016 Chronic rhinitis 10/04/2015 04/20/2017 External hemorrhoid 06/19/2014 06/02/19 23 Leg cramps 03/31/2014 10/11/2014 DDD (degenerative disc disease), lumbar 03/08/2014 04/20/2017 Lens replaced by other means 07/05/2013 04/20/2017 History of deep venous thrombosis 09/07/2012 05/17/2013 Rectal bleeding 06/30/2012 08/16/2012 PE (pulmonary embolism) 09/04/201111/2012 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 Lumbar facet arthropathy 05/05/201111/2012 DDD (degenerative disc disease), lumbar 05/05/2011 04/13/2012 Lumbar spondylosis 05/05/2011 3 Left bundle branch block 05/28/201003/2014 Perirectal abscess 08/10/2009 1 Esophageal reflux 11/10/2008 10/11/2014 Nonspecific abnormal results of liver function study 10/05/2008 04/28/2011 Overview: ? Due to high-moderate alcohol intake documented as of this encounter (statuses as of 12/09/2022) [facility]10-13[facility]21 History of Past illness Narrative* Problem Noted Date Diagnosed Date Resolved Date Closed nondisplaced fracture of distal phalanx of right great toe 01/16/2021 11/13/2021 Macular hole of left eye 06/19/2020 Carotid artery stenosis 06/10/201910/2019 Overview: History: history of left carotid stenosis, s/p carotid endarterectomy with bovine patch angioplasty on 06/09. Assessment: incision c/d/i, pain and blood pressure well controlled Plan: - discharge today Elevated prostate specific antigen (PSA) 09/15/2016 10/21/2017 Osteoarthritis of lumbar spine 12/19/2015 04/20/2017 Chronic cough 10/04/2015 05/05/2016 Chronic rhinitis 10/04/2015 04/20/2017 External hemorrhoid 06/19/2014 06/02/19 23 Leg cramps 03/31/2014 10/11/2014 DDD (degenerative disc disease), lumbar 03/08/2014 04/20/2017 Lens replaced by other means 07/05/2013 04/20/2017 History of deep venous thrombosis 09/07/2012 05/17/2013 Rectal bleeding 06/30/2012 08/16/2012 PE (pulmonary embolism) 09/04/201111/2012 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 Lumbar facet arthropathy 05/05/201111/2012 DDD (degenerative disc disease), lumbar 05/05/2011 04/13/2012 Lumbar spondylosis 05/05/2011 3 Left bundle branch block 05/28/201003/2014 Perirectal abscess 08/10/2009 1 Esophageal reflux 11/10/2008 10/11/2014 Nonspecific abnormal results of liver function study 10/05/2008 04/28/2011 Overview: ? Due to high-moderate alcohol intake documented as of this encounter (statuses as of 12/10/2022) [facility]10-13[facility]2021 History of Past illness Narrative* Problem Noted Date Diagnosed Date Resolved Date Closed nondisplaced fracture of distal phalanx of right great toe 01/16/2021 11/13/2021 Macular hole of left eye 06/19/2020 Carotid artery stenosis 06/10/201910/2019 Overview: History: history of left carotid stenosis, s/p carotid endarterectomy with bovine patch angioplasty on 06/09. Assessment: incision c/d/i, pain and blood pressure well controlled Plan: - discharge today Elevated prostate specific antigen (PSA) 09/15/2016 10/21/2017 Osteoarthritis of lumbar spine 12/19/2015 04/20/2017 Chronic cough 10/04/2015 05/05/2016 Chronic rhinitis 10/04/2015 04/20/2017 External hemorrhoid 06/19/2014 06/02/19 23 Leg cramps 03/31/2014 10/11/2014 DDD (degenerative disc disease), lumbar 03/08/2014 04/20/2017 Lens replaced by other means 07/05/2013 04/20/2017 History of deep venous thrombosis 09/07/2012 05/17/2013 Rectal bleeding 06/30/2012 08/16/2012 PE (pulmonary embolism) 09/04/201111/2012 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 Lumbar facet arthropathy 05/05/201111/2012 DDD (degenerative disc disease), lumbar 05/05/2011 04/13/2012 Lumbar spondylosis 05/05/2011 3 Left bundle branch block 05/28/201003/2014 Perirectal abscess 08/10/2009 1 Esophageal reflux 11/10/2008 10/11/2014 Nonspecific abnormal results of liver function study 10/05/2008 04/28/2011 Overview: ? Due to high-moderate alcohol intake documented as of this encounter (statuses as of 12/10/2022) [facility]10[facility]2021 History of Past illness Narrative* Problem Noted Date Diagnosed Date Resolved Date Closed nondisplaced fracture of distal phalanx of right great toe 01/16/2021 11/13/2021 Macular hole of left eye 06/19/2020 Carotid artery stenosis 06/10/2019 03/10/2019 Overview: History: history of left carotid stenosis, s/p carotid endarterectomy with bovine patch angioplasty on 06/09. Assessment: incision c/d/i, pain and blood pressure well controlled Plan: - discharge today Elevated prostate specific antigen (PSA) 09/15/2016 10/21/2017 Osteoarthritis of lumbar spine 12/19/2015 04/20/2017 Chronic cough 10/04/2015 05/05/2016 Chronic rhinitis 10/04/2015 04/20/2017 External hemorrhoid 06/19/2014 06/02/19 23 Leg cramps 03/31/2014 10/11/2014 DDD (degenerative disc disease), lumbar 03/08/2014 04/20/2017 Lens replaced by other means 07/05/2013 04/20/2017 History of deep venous thrombosis 09/07/2012 05/17/2013 Rectal bleeding 06/30/2012 08/16/2012 PE (pulmonary embolism) 09/04/201111/2012 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 Lumbar facet arthropathy 05/05/201111/2012 DDD (degenerative disc disease), lumbar 05/05/2011 04/13/2012 Lumbar spondylosis 05/05/2011 3 Left bundle branch block 05/28/201003/2014 Perirectal abscess 08/10/2009 1 Esophageal reflux 11/10/2008 10/11/2014 Nonspecific abnormal results of liver function study 10/05/2008 04/28/2011 Overview: ? Due to high-moderate alcohol intake documented as of this encounter (statuses as of 12/17/2022) [facility]10[facility] History of Past illness Narrative* Problem Noted Date Diagnosed Date Resolved Date Closed nondisplaced fracture of distal phalanx of right great toe 01/16/2021 11/13/2021 Macular hole of left eye 06/19/2020 Carotid artery stenosis 06/10/2019 03/10/2019 Overview: History: history of left carotid stenosis, s/p carotid endarterectomy with bovine patch angioplasty on 06/09. Assessment: incision c/d/i, pain and blood pressure well controlled Plan: - discharge today Elevated prostate specific antigen (PSA) 09/15/2016 10/21/2017 Osteoarthritis of lumbar spine 12/19/2015 04/20/2017 Chronic cough 10/04/2015 05/05/2016 Chronic rhinitis 10/04/2015 04/20/2017 External hemorrhoid 06/19/2014 06/02/19 23 Leg cramps 03/31/2014 10/11/2014 DDD (degenerative disc disease), lumbar 03/08/2014 04/20/2017 Lens replaced by other means 07/05/2013 04/20/2017 History of deep venous thrombosis 09/07/2012 05/17/2013 Rectal bleeding 06/30/2012 08/16/2012 PE (pulmonary embolism) 09/04/201111/2012 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 Lumbar facet arthropathy 05/05/201111/2012 DDD (degenerative disc disease), lumbar 05/05/2011 04/13/2012 Lumbar spondylosis 05/05/2011 3 Left bundle branch block 05/28/201003/2014 Perirectal abscess 08/10/2009 1 Esophageal reflux 11/10/2008 10/11/2014 Nonspecific abnormal results of liver function study 10/05/2008 04/28/2011 Overview: ? Due to high-moderate alcohol intake documented as of this encounter (statuses as of 12/17/2022) [facility]10[facility] History of Past illness Narrative* Problem Noted Date Diagnosed Date Resolved Date Closed nondisplaced fracture of distal phalanx of right great toe 01/16/2021 11/13/2021 Macular hole of left eye 06/19/2020 Carotid artery stenosis 06/10/201910/2019 Overview: History: history of left carotid stenosis, s/p carotid endarterectomy with bovine patch angioplasty on 06/09. Assessment: incision c/d/i, pain and blood pressure well controlled Plan: - discharge today Elevated prostate specific antigen (PSA) 09/15/2016 10/21/2017 Osteoarthritis of lumbar spine 12/19/2015 04/20/2017 Chronic cough 10/04/2015 05/05/2016 Chronic rhinitis 10/04/2015 04/20/2017 External hemorrhoid 06/19/2014 06/02/19 23 Leg cramps 03/31/2014 10/11/2014 DDD (degenerative disc disease), lumbar 03/08/2014 04/20/2017 Lens replaced by other means 07/05/2013 04/20/2017 History of deep venous thrombosis 09/07/2012 05/17/2013 Rectal bleeding 06/30/2012 08/16/2012 PE (pulmonary embolism) 09/04/201111/2012 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 Lumbar facet arthropathy 05/05/201111/2012 DDD (degenerative disc disease), lumbar 05/05/2011 04/13/2012 Lumbar spondylosis 05/05/2011 3 Left bundle branch block 05/28/201003/2014 Perirectal abscess 08/10/2009 1 Esophageal reflux 11/10/2008 10/11/2014 Nonspecific abnormal results of liver function study 10/05/2008 04/28/2011 Overview: ? Due to high-moderate alcohol intake documented as of this encounter (statuses as of 12/17/2022) [facility]10[facility] History of Past illness Narrative* Problem Noted Date Diagnosed Date Resolved Date Closed nondisplaced fracture of distal phalanx of right great toe 01/16/2021 11/13/2021 Macular hole of left eye 06/19/2020 Carotid artery stenosis 06/10/2019 03/10/2019 Overview: History: history of left carotid stenosis, s/p carotid endarterectomy with bovine patch angioplasty on 06/09. Assessment: incision c/d/i, pain and blood pressure well controlled Plan: - discharge today Elevated prostate specific antigen (PSA) 09/15/2016 10/21/2017 Osteoarthritis of lumbar spine 12/19/2015 04/20/2017 Chronic cough 10/04/2015 05/05/2016 Chronic rhinitis 10/04/2015 04/20/2017 External hemorrhoid 06/19/2014 06/02/19 23 Leg cramps 03/31/2014 10/11/2014 DDD (degenerative disc disease), lumbar 03/08/2014 04/20/2017 Lens replaced by other means 07/05/2013 04/20/2017 History of deep venous thrombosis 09/07/2012 05/17/2013 Rectal bleeding 06/30/2012 08/16/2012 PE (pulmonary embolism) 09/04/201111/2012 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 Lumbar facet arthropathy 05/05/201111/2012 DDD (degenerative disc disease), lumbar 05/05/2011 04/13/2012 Lumbar spondylosis 05/05/2011 3 Left bundle branch block 05/28/201003/2014 Perirectal abscess 08/10/2009 1 Esophageal reflux 11/10/2008 10/11/2014 Nonspecific abnormal results of liver function study 10/05/2008 04/28/2011 Overview: ? Due to high-moderate alcohol intake documented as of this encounter (statuses as of 12/25/2022) [facility]10[facility] History of Past illness Narrative* Problem Noted Date Diagnosed Date Resolved Date Closed nondisplaced fracture of distal phalanx of right great toe 01/16/2021 11/13/2021 Macular hole of left eye 06/19/2020 Carotid artery stenosis 06/10/201910/2019 Overview: History: history of left carotid stenosis, s/p carotid endarterectomy with bovine patch angioplasty on 06/09. Assessment: incision c/d/i, pain and blood pressure well controlled Plan: - discharge today Elevated prostate specific antigen (PSA) 09/15/2016 10/21/2017 Osteoarthritis of lumbar spine 12/19/2015 04/20/2017 Chronic cough 10/04/2015 05/05/2016 Chronic rhinitis 10/04/2015 04/20/2017 External hemorrhoid 06/19/2014 06/02/19 23 Leg cramps 03/31/2014 10/11/2014 DDD (degenerative disc disease), lumbar 03/08/2014 04/20/2017 Lens replaced by other means 07/05/2013 04/20/2017 History of deep venous thrombosis 09/07/2012 05/17/2013 Rectal bleeding 06/30/2012 08/16/2012 PE (pulmonary embolism) 09/04/201111/2012 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 Lumbar facet arthropathy 05/05/201111/2012 DDD (degenerative disc disease), lumbar 05/05/2011 04/13/2012 Lumbar spondylosis 05/05/2011 3 Left bundle branch block 05/28/201003/2014 Perirectal abscess 08/10/2009 1 Esophageal reflux 11/10/2008 10/11/2014 Nonspecific abnormal results of liver function study 10/05/2008 04/28/2011 Overview: ? Due to high-moderate alcohol intake documented as of this encounter (statuses as of 12/30/2022) [facility] History of Past illness Narrative* Problem Noted Date Diagnosed Date Resolved Date Closed nondisplaced fracture of distal phalanx of right great toe 01/16/2021 11/13/2021 Macular hole of left eye 06/19/2020 Carotid artery stenosis 06/10/201910/2019 Overview: History: history of left carotid stenosis, s/p carotid endarterectomy with bovine patch angioplasty on 06/09. Assessment: incision c/d/i, pain and blood pressure well controlled Plan: - discharge today Elevated prostate specific antigen (PSA) 09/15/2016 10/21/2017 Osteoarthritis of lumbar spine 12/19/2015 04/20/2017 Chronic cough 10/04/2015 05/05/2016 Chronic rhinitis 10/04/2015 04/20/2017 External hemorrhoid 06/19/2014 06/02/19 23 Leg cramps 03/31/2014 10/11/2014 DDD (degenerative disc disease), lumbar 03/08/2014 04/20/2017 Lens replaced by other means 07/05/2013 04/20/2017 History of deep venous thrombosis 09/07/2012 05/17/2013 Rectal bleeding 06/30/2012 08/16/2012 PE (pulmonary embolism) 09/04/201111/2012 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 Lumbar facet arthropathy 05/05/201111/2012 DDD (degenerative disc disease), lumbar 05/05/2011 04/13/2012 Lumbar spondylosis 05/05/2011 01/08/201 3 Left bundle branch block 05/28/201003/2014 Perirectal abscess 08/10/2009 1 Esophageal reflux 11/10/2008 10/11/2014 Nonspecific abnormal results of liver function study 10/05/2008 04/28/2011 Overview: ? Due to high-moderate alcohol intake documented as of this encounter (statuses as of 12/30/2022) [facility] History of Past illness Narrative* Problem Noted Date Diagnosed Date Resolved Date Closed nondisplaced fracture of distal phalanx of right great toe 01/16/2021 11/13/2021 Macular hole of left eye 06/19/2020 Carotid artery stenosis 06/10/201910/2019 Overview: History: history of left carotid stenosis, s/p carotid endarterectomy with bovine patch angioplasty on 06/09. Assessment: incision c/d/i, pain and blood pressure well controlled Plan: - discharge today Elevated prostate specific antigen (PSA) 09/15/2016 10/21/2017 Osteoarthritis of lumbar spine 12/19/2015 04/20/2017 Chronic cough 10/04/2015 05/05/2016 Chronic rhinitis 10/04/2015 04/20/2017 External hemorrhoid 06/19/2014 06/02/19 23 Leg cramps 03/31/2014 10/11/2014 DDD (degenerative disc disease), lumbar 03/08/2014 04/20/2017 Lens replaced by other means 07/05/2013 04/20/2017 History of deep venous thrombosis 09/07/2012 05/17/2013 Rectal bleeding 06/30/2012 08/16/2012 PE (pulmonary embolism) 09/04/201111/2012 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 Lumbar facet arthropathy 05/05/201111/2012 DDD (degenerative disc disease), lumbar 05/05/2011 04/13/2012 Lumbar spondylosis 05/05/2011 3 Left bundle branch block 05/28/201003/2014 Perirectal abscess 08/10/2009 1 Esophageal reflux 11/10/2008 10/11/2014 Nonspecific abnormal results of liver function study 10/05/2008 04/28/2011 Overview: ? Due to high-moderate alcohol intake documented as of this encounter (statuses as of 01/09/2023) [facility] History of Past illness Narrative* Problem Noted Date Diagnosed Date Resolved Date Closed nondisplaced fracture of distal phalanx of right great toe 01/16/2021 11/13/2021 Macular hole of left eye 06/19/2020 Carotid artery stenosis 06/10/201910/2019 Overview: History: history of left carotid stenosis, s/p carotid endarterectomy with bovine patch angioplasty on 06/09. Assessment: incision c/d/i, pain and blood pressure well controlled Plan: - discharge today Elevated prostate specific antigen (PSA) 09/15/2016 10/21/2017 Osteoarthritis of lumbar spine 12/19/2015 04/20/2017 Chronic cough 10/04/2015 05/05/2016 Chronic rhinitis 10/04/2015 04/20/2017 External hemorrhoid 06/19/2014 06/02/19 23 Leg cramps 03/31/2014 10/11/2014 DDD (degenerative disc disease), lumbar 03/08/2014 04/20/2017 Lens replaced by other means 07/05/2013 04/20/2017 History of deep venous thrombosis 09/07/2012 05/17/2013 Rectal bleeding 06/30/2012 08/16/2012 PE (pulmonary embolism) 09/04/201111/2012 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 Lumbar facet arthropathy 05/05/201111/2012 DDD (degenerative disc disease), lumbar 05/05/2011 04/13/2012 Lumbar spondylosis 05/05/2011 3 Left bundle branch block 05/28/201003/2014 Perirectal abscess 08/10/2009 1 Esophageal reflux 11/10/2008 10/11/2014 Nonspecific abnormal results of liver function study 10/05/2008 04/28/2011 Overview: ? Due to high-moderate alcohol intake documented as of this encounter (statuses as of 01/10/2023) [facility] History of Past illness Narrative* Problem Noted Date Diagnosed Date Resolved Date Closed nondisplaced fracture of distal phalanx of right great toe 01/16/2021 11/13/2021 Macular hole of left eye 06/19/2020 Carotid artery stenosis 06/10/201910/2019 Overview: History: history of left carotid stenosis, s/p carotid endarterectomy with bovine patch angioplasty on 06/09. Assessment: incision c/d/i, pain and blood pressure well controlled Plan: - discharge today Elevated prostate specific antigen (PSA) 09/15/2016 10/21/2017 Osteoarthritis of lumbar spine 12/19/2015 04/20/2017 Chronic cough 10/04/2015 05/05/2016 Chronic rhinitis 10/04/2015 04/20/2017 External hemorrhoid 06/19/2014 06/02/19 23 Leg cramps 03/31/2014 10/11/2014 DDD (degenerative disc disease), lumbar 03/08/2014 04/20/2017 Lens replaced by other means 07/05/2013 04/20/2017 History of deep venous thrombosis 09/07/2012 05/17/2013 Rectal bleeding 06/30/2012 08/16/2012 PE (pulmonary embolism) 09/04/201111/2012 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 Lumbar facet arthropathy 05/05/201111/2012 DDD (degenerative disc disease), lumbar 05/05/2011 04/13/2012 Lumbar spondylosis 05/05/2011 3 Left bundle branch block 05/28/201003/2014 Perirectal abscess 08/10/2009 1 Esophageal reflux 11/10/2008 10/11/2014 Nonspecific abnormal results of liver function study 10/05/2008 04/28/2011 Overview: ? Due to high-moderate alcohol intake documented as of this encounter (statuses as of 01/12/2023) [facility] History of Past illness Narrative* Problem Noted Date Diagnosed Date Resolved Date Closed nondisplaced fracture of distal phalanx of right great toe 01/16/2021 11/13/2021 Macular hole of left eye 06/19/2020 Carotid artery stenosis 06/10/201910/2019 Overview: History: history of left carotid stenosis, s/p carotid endarterectomy with bovine patch angioplasty on 06/09. Assessment: incision c/d/i, pain and blood pressure well controlled Plan: - discharge today Elevated prostate specific antigen (PSA) 09/15/2016 10/21/2017 Osteoarthritis of lumbar spine 12/19/2015 04/20/2017 Chronic cough 10/04/2015 05/05/2016 Chronic rhinitis 10/04/2015 04/20/2017 External hemorrhoid 06/19/2014 06/02/19 23 Leg cramps 03/31/2014 10/11/2014 DDD (degenerative disc disease), lumbar 03/08/2014 04/20/2017 Lens replaced by other means 07/05/2013 04/20/2017 History of deep venous thrombosis 09/07/2012 05/17/2013 Rectal bleeding 06/30/2012 08/16/2012 PE (pulmonary embolism) 09/04/201111/2012 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 Lumbar facet arthropathy 05/05/201111/2012 DDD (degenerative disc disease), lumbar 05/05/2011 04/13/2012 Lumbar spondylosis 05/05/2011 3 Left bundle branch block 05/28/201003/2014 Perirectal abscess 08/10/2009 1 Esophageal reflux 11/10/2008 10/11/2014 Nonspecific abnormal results of liver function study 10/05/2008 04/28/2011 Overview: ? Due to high-moderate alcohol intake documented as of this encounter (statuses as of 01/14/2023) [facility]-13[facility]2021 History of Past illness Narrative* Problem Noted Date Diagnosed Date Resolved Date Closed nondisplaced fracture of distal phalanx of right great toe 01/16/2021 11/13/2021 Macular hole of left eye 06/19/2020 Carotid artery stenosis 06/10/201910/2019 Overview: History: history of left carotid stenosis, s/p carotid endarterectomy with bovine patch angioplasty on 06/09. Assessment: incision c/d/i, pain and blood pressure well controlled Plan: - discharge today Elevated prostate specific antigen (PSA) 09/15/2016 10/21/2017 Osteoarthritis of lumbar spine 12/19/2015 04/20/2017 Chronic cough 10/04/2015 05/05/2016 Chronic rhinitis 10/04/2015 04/20/2017 External hemorrhoid 06/19/2014 06/02/19 23 Leg cramps 03/31/2014 10/11/2014 DDD (degenerative disc disease), lumbar 03/08/2014 04/20/2017 Lens replaced by other means 07/05/2013 04/20/2017 History of deep venous thrombosis 09/07/2012 05/17/2013 Rectal bleeding 06/30/2012 08/16/2012 PE (pulmonary embolism) 09/04/201111/2012 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 Lumbar facet arthropathy 05/05/201111/2012 DDD (degenerative disc disease), lumbar 05/05/2011 04/13/2012 Lumbar spondylosis 05/05/2011 3 Left bundle branch block 05/28/201003/2014 Perirectal abscess 08/10/2009 1 Esophageal reflux 11/10/2008 10/11/2014 Nonspecific abnormal results of liver function study 10/05/2008 04/28/2011 Overview: ? Due to high-moderate alcohol intake documented as of this encounter (statuses as of 01/15/2023) [facility] History of Past illness Narrative* Problem Noted Date Diagnosed Date Resolved Date Closed nondisplaced fracture of distal phalanx of right great toe 01/16/2021 11/13/2021 Macular hole of left eye 06/19/2020 Carotid artery stenosis 06/10/201910/2019 Overview: History: history of left carotid stenosis, s/p carotid endarterectomy with bovine patch angioplasty on 06/09. Assessment: incision c/d/i, pain and blood pressure well controlled Plan: - discharge today Elevated prostate specific antigen (PSA) 09/15/2016 10/21/2017 Osteoarthritis of lumbar spine 12/19/2015 04/20/2017 Chronic cough 10/04/2015 05/05/2016 Chronic rhinitis 10/04/2015 04/20/2017 External hemorrhoid 06/19/2014 06/02/19 23 Leg cramps 03/31/2014 10/11/2014 DDD (degenerative disc disease), lumbar 03/08/2014 04/20/2017 Lens replaced by other means 07/05/2013 04/20/2017 History of deep venous thrombosis 09/07/2012 05/17/2013 Rectal bleeding 06/30/2012 08/16/2012 PE (pulmonary embolism) 09/04/201111/2012 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 Lumbar facet arthropathy 05/05/201111/2012 DDD (degenerative disc disease), lumbar 05/05/2011 04/13/2012 Lumbar spondylosis 05/05/2011 3 Left bundle branch block 05/28/201003/2014 Perirectal abscess 08/10/2009 1 Esophageal reflux 11/10/2008 10/11/2014 Nonspecific abnormal results of liver function study 10/05/2008 04/28/2011 Overview: ? Due to high-moderate alcohol intake documented as of this encounter (statuses as of 01/20/2023) [facility] History of Past illness Narrative* Problem Noted Date Diagnosed Date Resolved Date Closed nondisplaced fracture of distal phalanx of right great toe 01/16/2021 11/13/2021 Macular hole of left eye 06/19/2020 Carotid artery stenosis 06/10/201910/2019 Overview: History: history of left carotid stenosis, s/p carotid endarterectomy with bovine patch angioplasty on 06/09. Assessment: incision c/d/i, pain and blood pressure well controlled Plan: - discharge today Elevated prostate specific antigen (PSA) 09/15/2016 10/21/2017 Osteoarthritis of lumbar spine 12/19/2015 04/20/2017 Chronic cough 10/04/2015 05/05/2016 Chronic rhinitis 10/04/2015 04/20/2017 External hemorrhoid 06/19/2014 06/02/19 23 Leg cramps 03/31/2014 10/11/2014 DDD (degenerative disc disease), lumbar 03/08/2014 04/20/2017 Lens replaced by other means 07/05/2013 04/20/2017 History of deep venous thrombosis 09/07/2012 05/17/2013 Rectal bleeding 06/30/2012 08/16/2012 PE (pulmonary embolism) 09/04/201111/2012 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 Lumbar facet arthropathy 05/05/201111/2012 DDD (degenerative disc disease), lumbar 05/05/2011 04/13/2012 Lumbar spondylosis 05/05/2011 3 Left bundle branch block 05/28/201003/2014 Perirectal abscess 08/10/2009 1 Esophageal reflux 11/10/2008 10/11/2014 Nonspecific abnormal results of liver function study 10/05/2008 04/28/2011 Overview: ? Due to high-moderate alcohol intake documented as of this encounter (statuses as of 01/22/2023) [facility] History of Past illness Narrative* Problem Noted Date Diagnosed Date Resolved Date Closed nondisplaced fracture of distal phalanx of right great toe 01/16/2021 11/13/2021 Macular hole of left eye 06/19/2020 Carotid artery stenosis 06/10/2019 0310/2019 Overview: History: history of left carotid stenosis, s/p carotid endarterectomy with bovine patch angioplasty on 06/09. Assessment: incision c/d/i, pain and blood pressure well controlled Plan: - discharge today Elevated prostate specific antigen (PSA) 09/15/2016 10/21/2017 Osteoarthritis of lumbar spine 12/19/2015 04/20/2017 Chronic cough 10/04/2015 05/05/2016 Chronic rhinitis 10/04/2015 04/20/2017 External hemorrhoid 06/19/2014 06/02/19 23 Leg cramps 03/31/2014 10/11/2014 DDD (degenerative disc disease), lumbar 03/08/2014 04/20/2017 Lens replaced by other means 07/05/2013 04/20/2017 History of deep venous thrombosis 09/07/2012 05/17/2013 Rectal bleeding 06/30/2012 08/16/2012 PE (pulmonary embolism) 09/04/20110 11/2012 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 Lumbar facet arthropathy 05/05/201111/2012 DDD (degenerative disc disease), lumbar 05/05/2011 04/13/2012 Lumbar spondylosis 05/05/2011 3 Left bundle branch block 05/28/201003/2014 Perirectal abscess 08/10/2009 1 Esophageal reflux 11/10/2008 10/11/2014 Nonspecific abnormal results of liver function study 10/05/2008 04/28/2011 Overview: ? Due to high-moderate alcohol intake documented as of this encounter (statuses as of 01/22/2023) [facility] History of Past illness Narrative* Problem Noted Date Diagnosed Date Resolved Date Closed nondisplaced fracture of distal phalanx of right great toe 01/16/2021 11/13/2021 Macular hole of left eye 06/19/2020 Carotid artery stenosis 06/10/201910/2019 Overview: History: history of left carotid stenosis, s/p carotid endarterectomy with bovine patch angioplasty on 06/09. Assessment: incision c/d/i, pain and blood pressure well controlled Plan: - discharge today Elevated prostate specific antigen (PSA) 09/15/2016 10/21/2017 Osteoarthritis of lumbar spine 12/19/2015 04/20/2017 Chronic cough 10/04/2015 05/05/2016 Chronic rhinitis 10/04/2015 04/20/2017 External hemorrhoid 06/19/2014 06/02/19 23 Leg cramps 03/31/2014 10/11/2014 DDD (degenerative disc disease), lumbar 03/08/2014 04/20/2017 Lens replaced by other means 07/05/2013 04/20/2017 History of deep venous thrombosis 09/07/2012 05/17/2013 Rectal bleeding 06/30/2012 08/16/2012 PE (pulmonary embolism) 09/04/201111/2012 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 Lumbar facet arthropathy 05/05/201111/2012 DDD (degenerative disc disease), lumbar 05/05/2011 04/13/2012 Lumbar spondylosis 05/05/2011 3 Gait abnormality 04/28/2011 01/23/2023 Left bundle branch block 05/28/201003/2014 Perirectal abscess 08/10/2009 1 Esophageal reflux 11/10/2008 10/11/2014 Nonspecific abnormal results of liver function study 10/05/2008 04/28/2011 Overview: ? Due to high-moderate alcohol intake documented as of this encounter (statuses as of 01/23/2023) [facility] History of Past illness Narrative* Problem Noted Date Diagnosed Date Resolved Date Closed nondisplaced fracture of distal phalanx of right great toe 01/16/2021 11/13/2021 Macular hole of left eye 06/19/2020 Carotid artery stenosis 06/10/201910/2019 Overview: History: history of left carotid stenosis, s/p carotid endarterectomy with bovine patch angioplasty on 06/09. Assessment: incision c/d/i, pain and blood pressure well controlled Plan: - discharge today Elevated prostate specific antigen (PSA) 09/15/2016 10/21/2017 Osteoarthritis of lumbar spine 12/19/2015 04/20/2017 Chronic cough 10/04/2015 05/05/2016 Chronic rhinitis 10/04/2015 04/20/2017 External hemorrhoid 06/19/2014 06/02/19 23 Leg cramps 03/31/2014 10/11/2014 DDD (degenerative disc disease), lumbar 03/08/2014 04/20/2017 Lens replaced by other means 07/05/2013 04/20/2017 History of deep venous thrombosis 09/07/2012 05/17/2013 Rectal bleeding 06/30/2012 08/16/2012 PE (pulmonary embolism) 09/04/201111/2012 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 Lumbar facet arthropathy 05/05/201111/2012 DDD (degenerative disc disease), lumbar 05/05/2011 04/13/2012 Lumbar spondylosis 05/05/2011 3 Gait abnormality 04/28/2011 01/23/2023 Left bundle branch block 05/28/201003/2014 Perirectal abscess 08/10/2009 1 Esophageal reflux 11/10/2008 10/11/2014 Nonspecific abnormal results of liver function study 10/05/2008 04/28/2011 Overview: ? Due to high-moderate alcohol intake documented as of this encounter (statuses as of 01/30/2023) [facility] History of Past illness Narrative* Problem Noted Date Diagnosed Date Resolved Date Closed nondisplaced fracture of distal phalanx of right great toe 01/16/2021 11/13/2021 Macular hole of left eye 06/19/2020 Carotid artery stenosis 06/10/201910/2019 Overview: History: history of left carotid stenosis, s/p carotid endarterectomy with bovine patch angioplasty on 06/09. Assessment: incision c/d/i, pain and blood pressure well controlled Plan: - discharge today Elevated prostate specific antigen (PSA) 09/15/2016 10/21/2017 Osteoarthritis of lumbar spine 12/19/2015 04/20/2017 Chronic cough 10/04/2015 05/05/2016 Chronic rhinitis 10/04/2015 04/20/2017 External hemorrhoid 06/19/2014 06/02/19 23 Leg cramps 03/31/2014 10/11/2014 DDD (degenerative disc disease), lumbar 03/08/2014 04/20/2017 Lens replaced by other means 07/05/2013 04/20/2017 History of deep venous thrombosis 09/07/2012 05/17/2013 Rectal bleeding 06/30/2012 08/16/2012 PE (pulmonary embolism) 09/04/201111/2012 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 Lumbar facet arthropathy 05/05/201111/2012 DDD (degenerative disc disease), lumbar 05/05/2011 04/13/2012 Lumbar spondylosis 05/05/2011 3 Gait abnormality 04/28/2011 01/23/2023 Left bundle branch block 05/28/201003/2014 Perirectal abscess 08/10/2009 1 Esophageal reflux 11/10/2008 10/11/2014 Nonspecific abnormal results of liver function study 10/05/2008 04/28/2011 Overview: ? Due to high-moderate alcohol intake documented as of this encounter (statuses as of 01/30/2023) [facility] History of Past illness Narrative* Problem Noted Date Diagnosed Date Resolved Date Closed nondisplaced fracture of distal phalanx of right great toe 01/16/2021 11/13/2021 Macular hole of left eye 06/19/2020 Carotid artery stenosis 06/10/201910/2019 Overview: History: history of left carotid stenosis, s/p carotid endarterectomy with bovine patch angioplasty on 06/09. Assessment: incision c/d/i, pain and blood pressure well controlled Plan: - discharge today Elevated prostate specific antigen (PSA) 09/15/2016 10/21/2017 Osteoarthritis of lumbar spine 12/19/2015 04/20/2017 Chronic cough 10/04/2015 05/05/2016 Chronic rhinitis 10/04/2015 04/20/2017 External hemorrhoid 06/19/2014 06/02/19 23 Leg cramps 03/31/2014 10/11/2014 DDD (degenerative disc disease), lumbar 03/08/2014 04/20/2017 Lens replaced by other means 07/05/2013 04/20/2017 History of deep venous thrombosis 09/07/2012 05/17/2013 Rectal bleeding 06/30/2012 08/16/2012 PE (pulmonary embolism) 09/04/201111/2012 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 Lumbar facet arthropathy 05/05/201111/2012 DDD (degenerative disc disease), lumbar 05/05/2011 04/13/2012 Lumbar spondylosis 05/05/2011 3 Gait abnormality 04/28/2011 01/23/2023 Left bundle branch block 05/28/201003/2014 Perirectal abscess 08/10/2009 1 Esophageal reflux 11/10/2008 10/11/2014 Nonspecific abnormal results of liver function study 10/05/2008 04/28/2011 Overview: ? Due to high-moderate alcohol intake documented as of this encounter (statuses as of 02/04/2023) [facility] History of Past illness Narrative* Problem Noted Date Diagnosed Date Resolved Date Closed nondisplaced fracture of distal phalanx of right great toe 01/16/2021 11/13/2021 Macular hole of left eye 06/19/2020 Carotid artery stenosis 06/10/20190 10/2019 Overview: History: history of left carotid stenosis, s/p carotid endarterectomy with bovine patch angioplasty on 06/09. Assessment: incision c/d/i, pain and blood pressure well controlled Plan: - discharge today Elevated prostate specific antigen (PSA) 09/15/2016 10/21/2017 Osteoarthritis of lumbar spine 12/19/2015 04/20/2017 Chronic cough 10/04/2015 05/05/2016 Chronic rhinitis 10/04/2015 04/20/2017 External hemorrhoid 06/19/2014 06/02/19 23 Leg cramps 03/31/2014 10/11/2014 DDD (degenerative disc disease), lumbar 03/08/2014 04/20/2017 Lens replaced by other means 07/05/2013 04/20/2017 History of deep venous thrombosis 09/07/2012 05/17/2013 Rectal bleeding 06/30/2012 08/16/2012 PE (pulmonary embolism) 09/04/201111/2012 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 Lumbar facet arthropathy 05/05/201111/2012 DDD (degenerative disc disease), lumbar 05/05/2011 04/13/2012 Lumbar spondylosis 05/05/2011 3 Gait abnormality 04/28/2011 01/23/2023 Left bundle branch block 05/28/201003/2014 Perirectal abscess 08/10/2009 1 Esophageal reflux 11/10/2008 10/11/2014 Nonspecific abnormal results of liver function study 10/05/2008 04/28/2011 Overview: ? Due to high-moderate alcohol intake documented as of this encounter (statuses as of 02/10/2023) [facility] History of Past illness Narrative* Problem Noted Date Diagnosed Date Resolved Date Closed nondisplaced fracture of distal phalanx of right great toe 01/16/2021 11/13/2021 Macular hole of left eye 06/19/2020 Carotid artery stenosis 06/10/2019 03/0 10/2019 Overview: History: history of left carotid stenosis, s/p carotid endarterectomy with bovine patch angioplasty on 06/09. Assessment: incision c/d/i, pain and blood pressure well controlled Plan: - discharge today Elevated prostate specific antigen (PSA) 09/15/2016 10/21/2017 Osteoarthritis of lumbar spine 12/19/2015 04/20/2017 Chronic cough 10/04/2015 05/05/2016 Chronic rhinitis 10/04/2015 04/20/2017 External hemorrhoid 06/19/2014 06/02/19 23 Leg cramps 03/31/2014 10/11/2014 DDD (degenerative disc disease), lumbar 03/08/2014 04/20/2017 Lens replaced by other means 07/05/2013 04/20/2017 History of deep venous thrombosis 09/07/2012 05/17/2013 Rectal bleeding 06/30/2012 08/16/2012 PE (pulmonary embolism) 09/04/201111/2012 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 Lumbar facet arthropathy 05/05/201111/2012 DDD (degenerative disc disease), lumbar 05/05/2011 04/13/2012 Lumbar spondylosis 05/05/2011 3 Gait abnormality 04/28/2011 01/23/2023 Left bundle branch block 05/28/201003/2014 Perirectal abscess 08/10/2009 1 Esophageal reflux 11/10/2008 10/11/2014 Nonspecific abnormal results of liver function study 10/05/2008 04/28/2011 Overview: ? Due to high-moderate alcohol intake documented as of this encounter (statuses as of 02/10/2023) [facility] History of Past illness Narrative* Problem Noted Date Diagnosed Date Resolved Date Closed nondisplaced fracture of distal phalanx of right great toe 01/16/2021 11/13/2021 Macular hole of left eye 06/19/2020 Carotid artery stenosis 06/10/2019 03/10/2019 Overview: History: history of left carotid stenosis, s/p carotid endarterectomy with bovine patch angioplasty on 06/09. Assessment: incision c/d/i, pain and blood pressure well controlled Plan: - discharge today Elevated prostate specific antigen (PSA) 09/15/2016 10/21/2017 Osteoarthritis of lumbar spine 12/19/2015 04/20/2017 Chronic cough 10/04/2015 05/05/2016 Chronic rhinitis 10/04/2015 04/20/2017 External hemorrhoid 06/19/2014 06/02/19 Leg cramps 03/31/2014 10/11/2014 DDD (degenerative disc disease), lumbar 03/08/2014 04/20/2017 Lens replaced by other means 07/05/2013 04/20/2017 History of deep venous thrombosis 09/07/2012 05/17/2013 Rectal bleeding 06/30/2012 08/16/2012 PE (pulmonary embolism) 09/04/201111/2012 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 Lumbar facet arthropathy 05/05/201111/2012 DDD (degenerative disc disease), lumbar 05/05/2011 04/13/2012 Lumbar spondylosis 05/05/2011 3 Gait abnormality 04/28/2011 01/23/2023 Left bundle branch block 05/28/201003/2014 Perirectal abscess 08/10/2009 1 Esophageal reflux 11/10/2008 10/11/2014 Nonspecific abnormal results of liver function study 10/05/2008 04/28/2011 Overview: ? Due to high-moderate alcohol intake documented as of this encounter (statuses as of 02/11/2023) [facility] History of Past illness Narrative* Problem Noted Date Diagnosed Date Resolved Date Closed nondisplaced fracture of distal phalanx of right great toe 01/16/2021 11/13/2021 Macular hole of left eye 06/19/2020 Carotid artery stenosis 06/10/2019 0310/2019 Overview: History: history of left carotid stenosis, s/p carotid endarterectomy with bovine patch angioplasty on 06/09. Assessment: incision c/d/i, pain and blood pressure well controlled Plan: - discharge today Elevated prostate specific antigen (PSA) 09/15/2016 10/21/2017 Osteoarthritis of lumbar spine 12/19/2015 04/20/2017 Chronic cough 10/04/2015 05/05/2016 Chronic rhinitis 10/04/2015 04/20/2017 External hemorrhoid 06/19/2014 06/02/19 Leg cramps 03/31/2014 10/11/2014 DDD (degenerative disc disease), lumbar 03/08/2014 04/20/2017 Lens replaced by other means 07/05/2013 04/20/2017 History of deep venous thrombosis 09/07/2012 05/17/2013 Rectal bleeding 06/30/2012 08/16/2012 PE (pulmonary embolism) 09/04/201111/2012 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 Lumbar facet arthropathy 05/05/201111/2012 DDD (degenerative disc disease), lumbar 05/05/2011 04/13/2012 Lumbar spondylosis 05/05/2011 3 Gait abnormality 04/28/2011 01/23/2023 Left bundle branch block 05/28/201003/2014 Perirectal abscess 08/10/2009 1 Esophageal reflux 11/10/2008 10/11/2014 Nonspecific abnormal results of liver function study 10/05/2008 04/28/2011 Overview: ? Due to high-moderate alcohol intake documented as of this encounter (statuses as of 02/18/2023) [facility] History of Past illness Narrative* Problem Noted Date Diagnosed Date Resolved Date Closed nondisplaced fracture of distal phalanx of right great toe 01/16/2021 11/13/2021 Macular hole of left eye 06/19/2020 Carotid artery stenosis 06/10/201910/2019 Overview: History: history of left carotid stenosis, s/p carotid endarterectomy with bovine patch angioplasty on 06/09. Assessment: incision c/d/i, pain and blood pressure well controlled Plan: - discharge today Elevated prostate specific antigen (PSA) 09/15/2016 10/21/2017 Osteoarthritis of lumbar spine 12/19/2015 04/20/2017 Chronic cough 10/04/2015 05/05/2016 Chronic rhinitis 10/04/2015 04/20/2017 External hemorrhoid 06/19/2014 06/02/19 Leg cramps 03/31/2014 10/11/2014 DDD (degenerative disc disease), lumbar 03/08/2014 04/20/2017 Lens replaced by other means 07/05/2013 04/20/2017 History of deep venous thrombosis 09/07/2012 05/17/2013 Rectal bleeding 06/30/2012 08/16/2012 PE (pulmonary embolism) 09/04/201111/2012 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 Lumbar facet arthropathy 05/05/201111/2012 DDD (degenerative disc disease), lumbar 05/05/2011 04/13/2012 Lumbar spondylosis 05/05/2011 3 Gait abnormality 04/28/2011 01/23/2023 Left bundle branch block 05/28/201003/2014 Perirectal abscess 08/10/2009 1 Esophageal reflux 11/10/2008 10/11/2014 Nonspecific abnormal results of liver function study 10/05/2008 04/28/2011 Overview: ? Due to high-moderate alcohol intake documented as of this encounter (statuses as of 02/24/2023) [facility] History of Past illness Narrative* Problem Noted Date Diagnosed Date Resolved Date Closed nondisplaced fracture of distal phalanx of right great toe 01/16/2021 11/13/2021 Macular hole of left eye 06/19/2020 Carotid artery stenosis 06/10/2019 03/10/2019 Overview: History: history of left carotid stenosis, s/p carotid endarterectomy with bovine patch angioplasty on 06/09. Assessment: incision c/d/i, pain and blood pressure well controlled Plan: - discharge today Elevated prostate specific antigen (PSA) 09/15/2016 10/21/2017 Osteoarthritis of lumbar spine 12/19/2015 04/20/2017 Chronic cough 10/04/2015 05/05/2016 Chronic rhinitis 10/04/2015 04/20/2017 External hemorrhoid 06/19/2014 06/02/19 Leg cramps 03/31/2014 10/11/2014 DDD (degenerative disc disease), lumbar 03/08/2014 04/20/2017 Lens replaced by other means 07/05/2013 04/20/2017 History of deep venous thrombosis 09/07/2012 05/17/2013 Rectal bleeding 06/30/2012 08/16/2012 PE (pulmonary embolism) 09/04/201111/2012 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 Lumbar facet arthropathy 05/05/201111/2012 DDD (degenerative disc disease), lumbar 05/05/2011 04/13/2012 Lumbar spondylosis 05/05/2011 3 Gait abnormality 04/28/2011 01/23/2023 Left bundle branch block 05/28/201003/2014 Perirectal abscess 08/10/2009 1 Esophageal reflux 11/10/2008 10/11/2014 Nonspecific abnormal results of liver function study 10/05/2008 04/28/2011 Overview: ? Due to high-moderate alcohol intake documented as of this encounter (statuses as of 02/27/2023) [facility]2021 History of Past illness Narrative* Problem Noted Date Diagnosed Date Resolved Date Closed nondisplaced fracture of distal phalanx of right great toe 01/16/2021 11/13/2021 Macular hole of left eye 06/19/2020 Carotid artery stenosis 06/10/2019 03/0 10/2019 Overview: History: history of left carotid stenosis, s/p carotid endarterectomy with bovine patch angioplasty on 06/09. Assessment: incision c/d/i, pain and blood pressure well controlled Plan: - discharge today Elevated prostate specific antigen (PSA) 09/15/2016 10/21/2017 Osteoarthritis of lumbar spine 12/19/2015 04/20/2017 Chronic cough 10/04/2015 05/05/2016 Chronic rhinitis 10/04/2015 04/20/2017 External hemorrhoid 06/19/2014 06/02/19 23 Leg cramps 03/31/2014 10/11/2014 DDD (degenerative disc disease), lumbar 03/08/2014 04/20/2017 Lens replaced by other means 07/05/2013 04/20/2017 History of deep venous thrombosis 09/07/2012 05/17/2013 Rectal bleeding 06/30/2012 08/16/2012 PE (pulmonary embolism) 09/04/201111/2012 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 Lumbar facet arthropathy 05/05/201111/2012 DDD (degenerative disc disease), lumbar 05/05/2011 04/13/2012 Lumbar spondylosis 05/05/2011 3 Gait abnormality 04/28/2011 01/23/2023 Left bundle branch block 05/28/201003/2014 Perirectal abscess 08/10/2009 1 Esophageal reflux 11/10/2008 10/11/2014 Nonspecific abnormal results of liver function study 10/05/2008 04/28/2011 Overview: ? Due to high-moderate alcohol intake documented as of this encounter (statuses as of 03/02/2023) [facility] History of Past illness Narrative* Problem Noted Date Diagnosed Date Resolved Date Closed nondisplaced fracture of distal phalanx of right great toe 01/16/2021 11/13/2021 Macular hole of left eye 06/19/2020 Carotid artery stenosis 06/10/20190 10/2019 Overview: History: history of left carotid stenosis, s/p carotid endarterectomy with bovine patch angioplasty on 06/09. Assessment: incision c/d/i, pain and blood pressure well controlled Plan: - discharge today Elevated prostate specific antigen (PSA) 09/15/2016 10/21/2017 Osteoarthritis of lumbar spine 12/19/2015 04/20/2017 Chronic cough 10/04/2015 05/05/2016 Chronic rhinitis 10/04/2015 04/20/2017 External hemorrhoid 06/19/2014 06/02/19 Leg cramps 03/31/2014 10/11/2014 DDD (degenerative disc disease), lumbar 03/08/2014 04/20/2017 Lens replaced by other means 07/05/2013 04/20/2017 History of deep venous thrombosis 09/07/2012 05/17/2013 Rectal bleeding 06/30/2012 08/16/2012 PE (pulmonary embolism) 09/04/201111/2012 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 Lumbar facet arthropathy 05/05/201111/2012 DDD (degenerative disc disease), lumbar 05/05/2011 04/13/2012 Lumbar spondylosis 05/05/2011 3 Gait abnormality 04/28/2011 01/23/2023 Left bundle branch block 05/28/201003/2014 Perirectal abscess 08/10/2009 1 Esophageal reflux 11/10/2008 10/11/2014 Nonspecific abnormal results of liver function study 10/05/2008 04/28/2011 Overview: ? Due to high-moderate alcohol intake documented as of this encounter (statuses as of 03/05/2023) [facility] History of Past illness Narrative* Problem Noted Date Diagnosed Date Resolved Date Closed nondisplaced fracture of distal phalanx of right great toe 01/16/2021 11/13/2021 Macular hole of left eye 06/19/2020 Carotid artery stenosis 06/10/2019 030 10/2019 Overview: History: history of left carotid stenosis, s/p carotid endarterectomy with bovine patch angioplasty on 06/09. Assessment: incision c/d/i, pain and blood pressure well controlled Plan: - discharge today Elevated prostate specific antigen (PSA) 09/15/2016 10/21/2017 Osteoarthritis of lumbar spine 12/19/2015 04/20/2017 Chronic cough 10/04/2015 05/05/2016 Chronic rhinitis 10/04/2015 04/20/2017 External hemorrhoid 06/19/2014 06/02/19 Leg cramps 03/31/2014 10/11/2014 DDD (degenerative disc disease), lumbar 03/08/2014 04/20/2017 Lens replaced by other means 07/05/2013 04/20/2017 History of deep venous thrombosis 09/07/2012 05/17/2013 Rectal bleeding 06/30/2012 08/16/2012 PE (pulmonary embolism) 09/04/201111/2012 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 Lumbar facet arthropathy 05/05/201111/2012 DDD (degenerative disc disease), lumbar 05/05/2011 04/13/2012 Lumbar spondylosis 05/05/2011 3 Gait abnormality 04/28/2011 01/23/2023 Left bundle branch block 05/28/201003/2014 Perirectal abscess 08/10/2009 1 Esophageal reflux 11/10/2008 10/11/2014 Nonspecific abnormal results of liver function study 10/05/2008 04/28/2011 Overview: ? Due to high-moderate alcohol intake documented as of this encounter (statuses as of 03/10/2023) [facility] History of Past illness Narrative* Problem Noted Date Diagnosed Date Resolved Date Closed nondisplaced fracture of distal phalanx of right great toe 01/16/2021 11/13/2021 Macular hole of left eye 06/19/2020 Carotid artery stenosis 06/10/201910/2019 Overview: History: history of left carotid stenosis, s/p carotid endarterectomy with bovine patch angioplasty on 06/09. Assessment: incision c/d/i, pain and blood pressure well controlled Plan: - discharge today Elevated prostate specific antigen (PSA) 09/15/2016 10/21/2017 Osteoarthritis of lumbar spine 12/19/2015 04/20/2017 Chronic cough 10/04/2015 05/05/2016 Chronic rhinitis 10/04/2015 04/20/2017 External hemorrhoid 06/19/2014 06/02/19 23 Leg cramps 03/31/2014 10/11/2014 DDD (degenerative disc disease), lumbar 03/08/2014 04/20/2017 Lens replaced by other means 07/05/2013 04/20/2017 History of deep venous thrombosis 09/07/2012 05/17/2013 Rectal bleeding 06/30/2012 08/16/2012 PE (pulmonary embolism) 09/04/201111/2012 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 Lumbar facet arthropathy 05/05/201111/2012 DDD (degenerative disc disease), lumbar 05/05/2011 04/13/2012 Lumbar spondylosis 05/05/2011 3 Gait abnormality 04/28/2011 01/23/2023 Left bundle branch block 05/28/201003/2014 Perirectal abscess 08/10/2009 1 Esophageal reflux 11/10/2008 10/11/2014 Nonspecific abnormal results of liver function study 10/05/2008 04/28/2011 Overview: ? Due to high-moderate alcohol intake documented as of this encounter (statuses as of 03/19/2023) [facility] History of Past illness Narrative* Problem Noted Date Diagnosed Date Resolved Date Closed nondisplaced fracture of distal phalanx of right great toe 01/16/2021 11/13/2021 Macular hole of left eye 06/19/2020 Carotid artery stenosis 06/10/201910/2019 Overview: History: history of left carotid stenosis, s/p carotid endarterectomy with bovine patch angioplasty on 06/09. Assessment: incision c/d/i, pain and blood pressure well controlled Plan: - discharge today Elevated prostate specific antigen (PSA) 09/15/2016 10/21/2017 Osteoarthritis of lumbar spine 12/19/2015 04/20/2017 Chronic cough 10/04/2015 05/05/2016 Chronic rhinitis 10/04/2015 04/20/2017 External hemorrhoid 06/19/2014 06/02/19 23 Leg cramps 03/31/2014 10/11/2014 DDD (degenerative disc disease), lumbar 03/08/2014 04/20/2017 Lens replaced by other means 07/05/2013 04/20/2017 History of deep venous thrombosis 09/07/2012 05/17/2013 Rectal bleeding 06/30/2012 08/16/2012 PE (pulmonary embolism) 09/04/201111/2012 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 Lumbar facet arthropathy 05/05/201111/2012 DDD (degenerative disc disease), lumbar 05/05/2011 04/13/2012 Lumbar spondylosis 05/05/2011 3 Gait abnormality 04/28/2011 01/23/2023 Left bundle branch block 05/28/201003/2014 Perirectal abscess 08/10/2009 1 Esophageal reflux 11/10/2008 10/11/2014 Nonspecific abnormal results of liver function study 10/05/2008 04/28/2011 Overview: ? Due to high-moderate alcohol intake documented as of this encounter (statuses as of 03/21/2023) [facility] History of Past illness Narrative* Problem Noted Date Diagnosed Date Resolved Date Closed nondisplaced fracture of distal phalanx of right great toe 01/16/2021 11/13/2021 Macular hole of left eye 06/19/2020 Carotid artery stenosis 06/10/201910/2019 Overview: History: history of left carotid stenosis, s/p carotid endarterectomy with bovine patch angioplasty on 06/09. Assessment: incision c/d/i, pain and blood pressure well controlled Plan: - discharge today Elevated prostate specific antigen (PSA) 09/15/2016 10/21/2017 Osteoarthritis of lumbar spine 12/19/2015 04/20/2017 Chronic cough 10/04/2015 05/05/2016 Chronic rhinitis 10/04/2015 04/20/2017 External hemorrhoid 06/19/2014 06/02/19 23 Leg cramps 03/31/2014 10/11/2014 DDD (degenerative disc disease), lumbar 03/08/2014 04/20/2017 Lens replaced by other means 07/05/2013 04/20/2017 History of deep venous thrombosis 09/07/2012 05/17/2013 Rectal bleeding 06/30/2012 08/16/2012 PE (pulmonary embolism) 09/04/201111/2012 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 Lumbar facet arthropathy 05/05/201111/2012 DDD (degenerative disc disease), lumbar 05/05/2011 04/13/2012 Lumbar spondylosis 05/05/2011 3 Gait abnormality 04/28/2011 01/23/2023 Left bundle branch block 05/28/201003/2014 Perirectal abscess 08/10/2009 1 Esophageal reflux 11/10/2008 10/11/2014 Nonspecific abnormal results of liver function study 10/05/2008 04/28/2011 Overview: ? Due to high-moderate alcohol intake documented as of this encounter (statuses as of 03/25/2023) [facility] History of Past illness Narrative* Problem Noted Date Diagnosed Date Resolved Date Closed nondisplaced fracture of distal phalanx of right great toe 01/16/2021 11/13/2021 Macular hole of left eye 06/19/2020 Carotid artery stenosis 06/10/201910/2019 Overview: History: history of left carotid stenosis, s/p carotid endarterectomy with bovine patch angioplasty on 06/09. Assessment: incision c/d/i, pain and blood pressure well controlled Plan: - discharge today Elevated prostate specific antigen (PSA) 09/15/2016 10/21/2017 Osteoarthritis of lumbar spine 12/19/2015 04/20/2017 Chronic cough 10/04/2015 05/05/2016 Chronic rhinitis 10/04/2015 04/20/2017 External hemorrhoid 06/19/2014 06/02/19 23 Leg cramps 03/31/2014 10/11/2014 DDD (degenerative disc disease), lumbar 03/08/2014 04/20/2017 Lens replaced by other means 07/05/2013 04/20/2017 History of deep venous thrombosis 09/07/2012 05/17/2013 Rectal bleeding 06/30/2012 08/16/2012 PE (pulmonary embolism) 09/04/201111/2012 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 Lumbar facet arthropathy 05/05/201111/2012 DDD (degenerative disc disease), lumbar 05/05/2011 04/13/2012 Lumbar spondylosis 05/05/2011 3 Gait abnormality 04/28/2011 01/23/2023 Left bundle branch block 05/28/201003/2014 Perirectal abscess 08/10/2009 02/22/201 1 Esophageal reflux 11/10/2008 10/11/2014 Nonspecific abnormal results of liver function study 10/05/2008 04/28/2011 Overview: ? Due to high-moderate alcohol intake documented as of this encounter (statuses as of 05/08/2023) [facility] History of Past illness Narrative* Problem Noted Date Diagnosed Date Resolved Date Closed nondisplaced fracture of distal phalanx of right great toe 01/16/2021 11/13/2021 Macular hole of left eye 06/19/2020 Carotid artery stenosis 06/10/2019 0310/2019 Overview: History: history of left carotid stenosis, s/p carotid endarterectomy with bovine patch angioplasty on 06/09. Assessment: incision c/d/i, pain and blood pressure well controlled Plan: - discharge today Elevated prostate specific antigen (PSA) 09/15/2016 10/21/2017 Osteoarthritis of lumbar spine 12/19/2015 04/20/2017 Chronic cough 10/04/2015 05/05/2016 Chronic rhinitis 10/04/2015 04/20/2017 External hemorrhoid 06/19/2014 06/02/19 Leg cramps 03/31/2014 10/11/2014 DDD (degenerative disc disease), lumbar 03/08/2014 04/20/2017 Lens replaced by other means 07/05/2013 04/20/2017 History of deep venous thrombosis 09/07/2012 05/17/2013 Rectal bleeding 06/30/2012 08/16/2012 PE (pulmonary embolism) 09/04/201111/2012 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 Lumbar facet arthropathy 05/05/201111/2012 DDD (degenerative disc disease), lumbar 05/05/2011 04/13/2012 Lumbar spondylosis 05/05/2011 3 Gait abnormality 04/28/2011 01/23/2023 Left bundle branch block 05/28/201003/2014 Perirectal abscess 08/10/2009 1 Esophageal reflux 11/10/2008 10/11/2014 Nonspecific abnormal results of liver function study 10/05/2008 04/28/2011 Overview: ? Due to high-moderate alcohol intake documented as of this encounter (statuses as of 05/08/2023) [facility] History of Past illness Narrative* Problem Noted Date Diagnosed Date Resolved Date Closed nondisplaced fracture of distal phalanx of right great toe 01/16/2021 11/13/2021 Macular hole of left eye 06/19/2020 Carotid artery stenosis 06/10/201910/2019 Overview: History: history of left carotid stenosis, s/p carotid endarterectomy with bovine patch angioplasty on 06/09. Assessment: incision c/d/i, pain and blood pressure well controlled Plan: - discharge today Elevated prostate specific antigen (PSA) 09/15/2016 10/21/2017 Osteoarthritis of lumbar spine 12/19/2015 04/20/2017 Chronic cough 10/04/2015 05/05/2016 Chronic rhinitis 10/04/2015 04/20/2017 External hemorrhoid 06/19/2014 06/02/19 23 Leg cramps 03/31/2014 10/11/2014 DDD (degenerative disc disease), lumbar 03/08/2014 04/20/2017 Lens replaced by other means 07/05/2013 04/20/2017 History of deep venous thrombosis 09/07/2012 05/17/2013 Rectal bleeding 06/30/2012 08/16/2012 PE (pulmonary embolism) 09/04/201111/2012 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 Lumbar facet arthropathy 05/05/201111/2012 DDD (degenerative disc disease), lumbar 05/05/2011 04/13/2012 Lumbar spondylosis 05/05/2011 3 Gait abnormality 04/28/2011 01/23/2023 Left bundle branch block 05/28/201003/2014 Perirectal abscess 08/10/2009 1 Esophageal reflux 11/10/2008 10/11/2014 Nonspecific abnormal results of liver function study 10/05/2008 04/28/2011 Overview: ? Due to high-moderate alcohol intake documented as of this encounter (statuses as of 05/13/2023) [facility] History of Past illness Narrative* Problem Noted Date Diagnosed Date Resolved Date Closed nondisplaced fracture of distal phalanx of right great toe 01/16/2021 11/13/2021 Macular hole of left eye 06/19/2020 Carotid artery stenosis 06/10/201910/2019 Overview: History: history of left carotid stenosis, s/p carotid endarterectomy with bovine patch angioplasty on 06/09. Assessment: incision c/d/i, pain and blood pressure well controlled Plan: - discharge today Elevated prostate specific antigen (PSA) 09/15/2016 10/21/2017 Osteoarthritis of lumbar spine 12/19/2015 04/20/2017 Chronic cough 10/04/2015 05/05/2016 Chronic rhinitis 10/04/2015 04/20/2017 External hemorrhoid 06/19/2014 06/02/19 23 Leg cramps 03/31/2014 10/11/2014 DDD (degenerative disc disease), lumbar 03/08/2014 04/20/2017 Lens replaced by other means 07/05/2013 04/20/2017 History of deep venous thrombosis 09/07/2012 05/17/2013 Rectal bleeding 06/30/2012 08/16/2012 PE (pulmonary embolism) 09/04/201111/2012 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 Lumbar facet arthropathy 05/05/201111/2012 DDD (degenerative disc disease), lumbar 05/05/2011 04/13/2012 Lumbar spondylosis 05/05/2011 3 Gait abnormality 04/28/2011 01/23/2023 Left bundle branch block 05/28/201003/2014 Perirectal abscess 08/10/2009 1 Esophageal reflux 11/10/2008 10/11/2014 Nonspecific abnormal results of liver function study 10/05/2008 04/28/2011 Overview: ? Due to high-moderate alcohol intake documented as of this encounter (statuses as of 05/14/2023) [facility] History of Past illness Narrative* Problem Noted Date Diagnosed Date Resolved Date Closed nondisplaced fracture of distal phalanx of right great toe 01/16/2021 11/13/2021 Macular hole of left eye 06/19/2020 Carotid artery stenosis 06/10/201910/2019 Overview: History: history of left carotid stenosis, s/p carotid endarterectomy with bovine patch angioplasty on 06/09. Assessment: incision c/d/i, pain and blood pressure well controlled Plan: - discharge today Elevated prostate specific antigen (PSA) 09/15/2016 10/21/2017 Osteoarthritis of lumbar spine 12/19/2015 04/20/2017 Chronic cough 10/04/2015 05/05/2016 Chronic rhinitis 10/04/2015 04/20/2017 External hemorrhoid 06/19/2014 06/02/19 23 Leg cramps 03/31/2014 10/11/2014 DDD (degenerative disc disease), lumbar 03/08/2014 04/20/2017 Lens replaced by other means 07/05/2013 04/20/2017 History of deep venous thrombosis 09/07/2012 05/17/2013 Rectal bleeding 06/30/2012 08/16/2012 PE (pulmonary embolism) 09/04/201111/2012 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 Lumbar facet arthropathy 05/05/201111/2012 DDD (degenerative disc disease), lumbar 05/05/2011 04/13/2012 Lumbar spondylosis 05/05/2011 3 Gait abnormality 04/28/2011 01/23/2023 Left bundle branch block 05/28/201003/2014 Perirectal abscess 08/10/2009 1 Esophageal reflux 11/10/2008 10/11/2014 Nonspecific abnormal results of liver function study 10/05/2008 04/28/2011 Overview: ? Due to high-moderate alcohol intake documented as of this encounter (statuses as of 05/15/2023) [facility] History of Past illness Narrative* Problem Noted Date Diagnosed Date Resolved Date Closed nondisplaced fracture of distal phalanx of right great toe 01/16/2021 11/13/2021 Macular hole of left eye 06/19/2020 Carotid artery stenosis 06/10/201910/2019 Overview: History: history of left carotid stenosis, s/p carotid endarterectomy with bovine patch angioplasty on 06/09. Assessment: incision c/d/i, pain and blood pressure well controlled Plan: - discharge today Elevated prostate specific antigen (PSA) 09/15/2016 10/21/2017 Osteoarthritis of lumbar spine 12/19/2015 04/20/2017 Chronic cough 10/04/2015 05/05/2016 Chronic rhinitis 10/04/2015 04/20/2017 External hemorrhoid 06/19/2014 06/02/19 23 Leg cramps 03/31/2014 10/11/2014 DDD (degenerative disc disease), lumbar 03/08/2014 04/20/2017 Lens replaced by other means 07/05/2013 04/20/2017 History of deep venous thrombosis 09/07/2012 05/17/2013 Rectal bleeding 06/30/2012 08/16/2012 PE (pulmonary embolism) 09/04/201111/2012 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 Lumbar facet arthropathy 05/05/201111/2012 DDD (degenerative disc disease), lumbar 05/05/2011 04/13/2012 Lumbar spondylosis 05/05/2011 3 Gait abnormality 04/28/2011 01/23/2023 Left bundle branch block 05/28/201003/2014 Perirectal abscess 08/10/2009 1 Esophageal reflux 11/10/2008 10/11/2014 Nonspecific abnormal results of liver function study 10/05/2008 04/28/2011 Overview: ? Due to high-moderate alcohol intake documented as of this encounter (statuses as of 05/18/2023) [facility] History of Past illness Narrative* Problem Noted Date Diagnosed Date Resolved Date Closed nondisplaced fracture of distal phalanx of right great toe 01/16/2021 11/13/2021 Macular hole of left eye 06/19/2020 Carotid artery stenosis 06/10/201910/2019 Overview: History: history of left carotid stenosis, s/p carotid endarterectomy with bovine patch angioplasty on 06/09. Assessment: incision c/d/i, pain and blood pressure well controlled Plan: - discharge today Elevated prostate specific antigen (PSA) 09/15/2016 10/21/2017 Osteoarthritis of lumbar spine 12/19/2015 04/20/2017 Chronic cough 10/04/2015 05/05/2016 Chronic rhinitis 10/04/2015 04/20/2017 External hemorrhoid 06/19/2014 06/02/19 23 Leg cramps 03/31/2014 10/11/2014 DDD (degenerative disc disease), lumbar 03/08/2014 04/20/2017 Lens replaced by other means 07/05/2013 04/20/2017 History of deep venous thrombosis 09/07/2012 05/17/2013 Rectal bleeding 06/30/2012 08/16/2012 PE (pulmonary embolism) 09/04/20110 11/2012 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 Lumbar facet arthropathy 05/05/201111/2012 DDD (degenerative disc disease), lumbar 05/05/2011 04/13/2012 Lumbar spondylosis 05/05/2011 3 Gait abnormality 04/28/2011 01/23/2023 Left bundle branch block 05/28/201003/2014 Perirectal abscess 08/10/2009 1 Esophageal reflux 11/10/2008 10/11/2014 Nonspecific abnormal results of liver function study 10/05/2008 04/28/2011 Overview: ? Due to high-moderate alcohol intake documented as of this encounter (statuses as of 05/19/2023) [facility] History of Past illness Narrative* Problem Noted Date Diagnosed Date Resolved Date Closed nondisplaced fracture of distal phalanx of right great toe 01/16/2021 11/13/2021 Macular hole of left eye 06/19/2020 Carotid artery stenosis 06/10/201910/2019 Overview: History: history of left carotid stenosis, s/p carotid endarterectomy with bovine patch angioplasty on 06/09. Assessment: incision c/d/i, pain and blood pressure well controlled Plan: - discharge today Elevated prostate specific antigen (PSA) 09/15/2016 10/21/2017 Osteoarthritis of lumbar spine 12/19/2015 04/20/2017 Chronic cough 10/04/2015 05/05/2016 Chronic rhinitis 10/04/2015 04/20/2017 External hemorrhoid 06/19/2014 06/02/19 23 Leg cramps 03/31/2014 10/11/2014 DDD (degenerative disc disease), lumbar 03/08/2014 04/20/2017 Lens replaced by other means 07/05/2013 04/20/2017 History of deep venous thrombosis 09/07/2012 05/17/2013 Rectal bleeding 06/30/2012 08/16/2012 PE (pulmonary embolism) 09/04/201111/2012 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 Lumbar facet arthropathy 05/05/201111/2012 DDD (degenerative disc disease), lumbar 05/05/2011 04/13/2012 Lumbar spondylosis 05/05/2011 3 Gait abnormality 04/28/2011 01/23/2023 Left bundle branch block 05/28/201003/2014 Perirectal abscess 08/10/2009 1 Esophageal reflux 11/10/2008 10/11/2014 Nonspecific abnormal results of liver function study 10/05/2008 04/28/2011 Overview: ? Due to high-moderate alcohol intake documented as of this encounter (statuses as of 05/22/2023) [facility]21 History of Past illness Narrative* Problem Noted Date Diagnosed Date Resolved Date Closed nondisplaced fracture of distal phalanx of right great toe 01/16/2021 11/13/2021 Macular hole of left eye 06/19/2020 Carotid artery stenosis 06/10/201910/2019 Overview: History: history of left carotid stenosis, s/p carotid endarterectomy with bovine patch angioplasty on 06/09. Assessment: incision c/d/i, pain and blood pressure well controlled Plan: - discharge today Elevated prostate specific antigen (PSA) 09/15/2016 10/21/2017 Osteoarthritis of lumbar spine 12/19/2015 04/20/2017 Chronic cough 10/04/2015 05/05/2016 Chronic rhinitis 10/04/2015 04/20/2017 External hemorrhoid 06/19/2014 06/02/19 23 Leg cramps 03/31/2014 10/11/2014 DDD (degenerative disc disease), lumbar 03/08/2014 04/20/2017 Lens replaced by other means 07/05/2013 04/20/2017 History of deep venous thrombosis 09/07/2012 05/17/2013 Rectal bleeding 06/30/2012 08/16/2012 PE (pulmonary embolism) 09/04/2011 01/0 11/2012 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 Lumbar facet arthropathy 05/05/201111/2012 DDD (degenerative disc disease), lumbar 05/05/2011 04/13/2012 Lumbar spondylosis 05/05/2011 3 Gait abnormality 04/28/2011 01/23/2023 Left bundle branch block 05/28/201003/2014 Perirectal abscess 08/10/2009 1 Esophageal reflux 11/10/2008 10/11/2014 Nonspecific abnormal results of liver function study 10/05/2008 04/28/2011 Overview: ? Due to high-moderate alcohol intake documented as of this encounter (statuses as of 05/23/2023) [facility] History of Past illness Narrative* Problem Noted Date Diagnosed Date Resolved Date Closed nondisplaced fracture of distal phalanx of right great toe 01/16/2021 11/13/2021 Macular hole of left eye 06/19/2020 Carotid artery stenosis 06/10/2019 030 10/2019 Overview: History: history of left carotid stenosis, s/p carotid endarterectomy with bovine patch angioplasty on 06/09. Assessment: incision c/d/i, pain and blood pressure well controlled Plan: - discharge today Elevated prostate specific antigen (PSA) 09/15/2016 10/21/2017 Osteoarthritis of lumbar spine 12/19/2015 04/20/2017 Chronic cough 10/04/2015 05/05/2016 Chronic rhinitis 10/04/2015 04/20/2017 External hemorrhoid 06/19/2014 06/02/19 23 Leg cramps 03/31/2014 10/11/2014 DDD (degenerative disc disease), lumbar 03/08/2014 04/20/2017 Lens replaced by other means 07/05/2013 04/20/2017 History of deep venous thrombosis 09/07/2012 05/17/2013 Rectal bleeding 06/30/2012 08/16/2012 PE (pulmonary embolism) 09/04/201111/2012 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 Lumbar facet arthropathy 05/05/201111/2012 DDD (degenerative disc disease), lumbar 05/05/2011 04/13/2012 Lumbar spondylosis 05/05/2011 3 Gait abnormality 04/28/2011 01/23/2023 Left bundle branch block 05/28/201003/2014 Perirectal abscess 08/10/2009 1 Esophageal reflux 11/10/2008 10/11/2014 Nonspecific abnormal results of liver function study 10/05/2008 04/28/2011 Overview: ? Due to high-moderate alcohol intake documented as of this encounter (statuses as of 05/25/2023) [facility] History of Past illness Narrative* Problem Noted Date Diagnosed Date Resolved Date Closed nondisplaced fracture of distal phalanx of right great toe 01/16/2021 11/13/2021 Macular hole of left eye 06/19/2020 Carotid artery stenosis 06/10/2019 03/0 10/2019 Overview: History: history of left carotid stenosis, s/p carotid endarterectomy with bovine patch angioplasty on 06/09. Assessment: incision c/d/i, pain and blood pressure well controlled Plan: - discharge today Elevated prostate specific antigen (PSA) 09/15/2016 10/21/2017 Osteoarthritis of lumbar spine 12/19/2015 04/20/2017 Chronic cough 10/04/2015 05/05/2016 Chronic rhinitis 10/04/2015 04/20/2017 External hemorrhoid 06/19/2014 06/02/19 Leg cramps 03/31/2014 10/11/2014 DDD (degenerative disc disease), lumbar 03/08/2014 04/20/2017 Lens replaced by other means 07/05/2013 04/20/2017 History of deep venous thrombosis 09/07/2012 05/17/2013 Rectal bleeding 06/30/2012 08/16/2012 PE (pulmonary embolism) 09/04/201111/2012 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 Lumbar facet arthropathy 05/05/201111/2012 DDD (degenerative disc disease), lumbar 05/05/2011 04/13/2012 Lumbar spondylosis 05/05/2011 3 Gait abnormality 04/28/2011 01/23/2023 Left bundle branch block 05/28/201003/2014 Perirectal abscess 08/10/2009 1 Esophageal reflux 11/10/2008 10/11/2014 Nonspecific abnormal results of liver function study 10/05/2008 04/28/2011 Overview: ? Due to high-moderate alcohol intake documented as of this encounter (statuses as of 05/26/2023) [facility] History of Past illness Narrative* Problem Noted Date Diagnosed Date Resolved Date Closed nondisplaced fracture of distal phalanx of right great toe 01/16/2021 11/13/2021 Macular hole of left eye 06/19/2020 Carotid artery stenosis 06/10/2019 03/0 10/2019 Overview: History: history of left carotid stenosis, s/p carotid endarterectomy with bovine patch angioplasty on 06/09. Assessment: incision c/d/i, pain and blood pressure well controlled Plan: - discharge today Elevated prostate specific antigen (PSA) 09/15/2016 10/21/2017 Osteoarthritis of lumbar spine 12/19/2015 04/20/2017 Chronic cough 10/04/2015 05/05/2016 Chronic rhinitis 10/04/2015 04/20/2017 External hemorrhoid 06/19/2014 06/02/19 23 Leg cramps 03/31/2014 10/11/2014 DDD (degenerative disc disease), lumbar 03/08/2014 04/20/2017 Lens replaced by other means 07/05/2013 04/20/2017 History of deep venous thrombosis 09/07/2012 05/17/2013 Rectal bleeding 06/30/2012 08/16/2012 PE (pulmonary embolism) 09/04/201111/2012 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 Lumbar facet arthropathy 05/05/201111/2012 DDD (degenerative disc disease), lumbar 05/05/2011 04/13/2012 Lumbar spondylosis 05/05/2011 3 Gait abnormality 04/28/2011 01/23/2023 Left bundle branch block 05/28/201003/2014 Perirectal abscess 08/10/2009 1 Esophageal reflux 11/10/2008 10/11/2014 Nonspecific abnormal results of liver function study 10/05/2008 04/28/2011 Overview: ? Due to high-moderate alcohol intake documented as of this encounter (statuses as of 05/26/2023) [facility] History of Past illness Narrative* Problem Noted Date Diagnosed Date Resolved Date Closed nondisplaced fracture of distal phalanx of right great toe 01/16/2021 11/13/2021 Macular hole of left eye 06/19/2020 Carotid artery stenosis 06/10/2019 030 10/2019 Overview: History: history of left carotid stenosis, s/p carotid endarterectomy with bovine patch angioplasty on 06/09. Assessment: incision c/d/i, pain and blood pressure well controlled Plan: - discharge today Elevated prostate specific antigen (PSA) 09/15/2016 10/21/2017 Osteoarthritis of lumbar spine 12/19/2015 04/20/2017 Chronic cough 10/04/2015 05/05/2016 Chronic rhinitis 10/04/2015 04/20/2017 External hemorrhoid 06/19/2014 06/02/19 Leg cramps 03/31/2014 10/11/2014 DDD (degenerative disc disease), lumbar 03/08/2014 04/20/2017 Lens replaced by other means 07/05/2013 04/20/2017 History of deep venous thrombosis 09/07/2012 05/17/2013 Rectal bleeding 06/30/2012 08/16/2012 PE (pulmonary embolism) 09/04/201111/2012 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 Lumbar facet arthropathy 05/05/201111/2012 DDD (degenerative disc disease), lumbar 05/05/2011 04/13/2012 Lumbar spondylosis 05/05/2011 3 Gait abnormality 04/28/2011 01/23/2023 Left bundle branch block 05/28/201003/2014 Perirectal abscess 08/10/2009 1 Esophageal reflux 11/10/2008 10/11/2014 Nonspecific abnormal results of liver function study 10/05/2008 04/28/2011 Overview: ? Due to high-moderate alcohol intake documented as of this encounter (statuses as of 05/29/2023) [facility] History of Past illness Narrative* Problem Noted Date Diagnosed Date Resolved Date Closed nondisplaced fracture of distal phalanx of right great toe 01/16/2021 11/13/2021 Macular hole of left eye 06/19/2020 Carotid artery stenosis 06/10/201910/2019 Overview: History: history of left carotid stenosis, s/p carotid endarterectomy with bovine patch angioplasty on 06/09. Assessment: incision c/d/i, pain and blood pressure well controlled Plan: - discharge today Elevated prostate specific antigen (PSA) 09/15/2016 10/21/2017 Osteoarthritis of lumbar spine 12/19/2015 04/20/2017 Chronic cough 10/04/2015 05/05/2016 Chronic rhinitis 10/04/2015 04/20/2017 External hemorrhoid 06/19/2014 06/02/19 Leg cramps 03/31/2014 10/11/2014 DDD (degenerative disc disease), lumbar 03/08/2014 04/20/2017 Lens replaced by other means 07/05/2013 04/20/2017 History of deep venous thrombosis 09/07/2012 05/17/2013 Rectal bleeding 06/30/2012 08/16/2012 PE (pulmonary embolism) 09/04/201111/2012 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 Lumbar facet arthropathy 05/05/201111/2012 DDD (degenerative disc disease), lumbar 05/05/2011 04/13/2012 Lumbar spondylosis 05/05/2011 3 Gait abnormality 04/28/2011 01/23/2023 Left bundle branch block 05/28/201003/2014 Perirectal abscess 08/10/2009 1 Esophageal reflux 11/10/2008 10/11/2014 Nonspecific abnormal results of liver function study 10/05/2008 04/28/2011 Overview: ? Due to high-moderate alcohol intake documented as of this encounter (statuses as of 05/30/2023) [facility] History of Past illness Narrative* Problem Noted Date Diagnosed Date Resolved Date Closed nondisplaced fracture of distal phalanx of right great toe 01/16/2021 11/13/2021 Macular hole of left eye 06/19/2020 Carotid artery stenosis 06/10/201910/2019 Overview: History: history of left carotid stenosis, s/p carotid endarterectomy with bovine patch angioplasty on 06/09. Assessment: incision c/d/i, pain and blood pressure well controlled Plan: - discharge today Elevated prostate specific antigen (PSA) 09/15/2016 10/21/2017 Osteoarthritis of lumbar spine 12/19/2015 04/20/2017 Chronic cough 10/04/2015 05/05/2016 Chronic rhinitis 10/04/2015 04/20/2017 External hemorrhoid 06/19/2014 06/02/19 Leg cramps 03/31/2014 10/11/2014 DDD (degenerative disc disease), lumbar 03/08/2014 04/20/2017 Lens replaced by other means 07/05/2013 04/20/2017 History of deep venous thrombosis 09/07/2012 05/17/2013 Rectal bleeding 06/30/2012 08/16/2012 PE (pulmonary embolism) 09/04/201111/2012 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 Lumbar facet arthropathy 05/05/201111/2012 DDD (degenerative disc disease), lumbar 05/05/2011 04/13/2012 Lumbar spondylosis 05/05/2011 3 Gait abnormality 04/28/2011 01/23/2023 Left bundle branch block 05/28/201003/2014 Perirectal abscess 08/10/2009 1 Esophageal reflux 11/10/2008 10/11/2014 Nonspecific abnormal results of liver function study 10/05/2008 04/28/2011 Overview: ? Due to high-moderate alcohol intake documented as of this encounter (statuses as of 06/02/2023) [facility] History of Past illness Narrative* Problem Noted Date Diagnosed Date Resolved Date Closed nondisplaced fracture of distal phalanx of right great toe 01/16/2021 11/13/2021 Macular hole of left eye 06/19/2020 Carotid artery stenosis 06/10/2019 0310/2019 Overview: History: history of left carotid stenosis, s/p carotid endarterectomy with bovine patch angioplasty on 06/09. Assessment: incision c/d/i, pain and blood pressure well controlled Plan: - discharge today Elevated prostate specific antigen (PSA) 09/15/2016 10/21/2017 Osteoarthritis of lumbar spine 12/19/2015 04/20/2017 Chronic cough 10/04/2015 05/05/2016 Chronic rhinitis 10/04/2015 04/20/2017 External hemorrhoid 06/19/2014 06/02/19 Leg cramps 03/31/2014 10/11/2014 DDD (degenerative disc disease), lumbar 03/08/2014 04/20/2017 Lens replaced by other means 07/05/2013 04/20/2017 History of deep venous thrombosis 09/07/2012 05/17/2013 Rectal bleeding 06/30/2012 08/16/2012 PE (pulmonary embolism) 09/04/201111/2012 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 Lumbar facet arthropathy 05/05/201111/2012 DDD (degenerative disc disease), lumbar 05/05/2011 04/13/2012 Lumbar spondylosis 05/05/2011 3 Gait abnormality 04/28/2011 01/23/2023 Left bundle branch block 05/28/201003/2014 Perirectal abscess 08/10/2009 1 Esophageal reflux 11/10/2008 10/11/2014 Nonspecific abnormal results of liver function study 10/05/2008 04/28/2011 Overview: ? Due to high-moderate alcohol intake documented as of this encounter (statuses as of 06/02/2023) [facility] History of Past illness Narrative* Problem Noted Date Diagnosed Date Resolved Date Closed nondisplaced fracture of distal phalanx of right great toe 01/16/2021 11/13/2021 Macular hole of left eye 06/19/2020 Carotid artery stenosis 06/10/2019 0310/2019 Overview: History: history of left carotid stenosis, s/p carotid endarterectomy with bovine patch angioplasty on 06/09. Assessment: incision c/d/i, pain and blood pressure well controlled Plan: - discharge today Elevated prostate specific antigen (PSA) 09/15/2016 10/21/2017 Osteoarthritis of lumbar spine 12/19/2015 04/20/2017 Chronic cough 10/04/2015 05/05/2016 Chronic rhinitis 10/04/2015 04/20/2017 External hemorrhoid 06/19/2014 06/02/19 Leg cramps 03/31/2014 10/11/2014 DDD (degenerative disc disease), lumbar 03/08/2014 04/20/2017 Lens replaced by other means 07/05/2013 04/20/2017 History of deep venous thrombosis 09/07/2012 05/17/2013 Rectal bleeding 06/30/2012 08/16/2012 PE (pulmonary embolism) 09/04/201111/2012 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 Lumbar facet arthropathy 05/05/201111/2012 DDD (degenerative disc disease), lumbar 05/05/2011 04/13/2012 Lumbar spondylosis 05/05/2011 3 Gait abnormality 04/28/2011 01/23/2023 Left bundle branch block 05/28/201003/2014 Perirectal abscess 08/10/2009 1 Esophageal reflux 11/10/2008 10/11/2014 Nonspecific abnormal results of liver function study 10/05/2008 04/28/2011 Overview: ? Due to high-moderate alcohol intake documented as of this encounter (statuses as of 06/04/2023) [facility] History of Past illness Narrative* Problem Noted Date Diagnosed Date Resolved Date Closed nondisplaced fracture of distal phalanx of right great toe 01/16/2021 11/13/2021 Macular hole of left eye 06/19/2020 Carotid artery stenosis 06/10/201910/2019 Overview: History: history of left carotid stenosis, s/p carotid endarterectomy with bovine patch angioplasty on 06/09. Assessment: incision c/d/i, pain and blood pressure well controlled Plan: - discharge today Elevated prostate specific antigen (PSA) 09/15/2016 10/21/2017 Osteoarthritis of lumbar spine 12/19/2015 04/20/2017 Chronic cough 10/04/2015 05/05/2016 Chronic rhinitis 10/04/2015 04/20/2017 External hemorrhoid 06/19/2014 06/02/19 Leg cramps 03/31/2014 10/11/2014 DDD (degenerative disc disease), lumbar 03/08/2014 04/20/2017 Lens replaced by other means 07/05/2013 04/20/2017 History of deep venous thrombosis 09/07/2012 05/17/2013 Rectal bleeding 06/30/2012 08/16/2012 PE (pulmonary embolism) 09/04/201111/2012 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 Lumbar facet arthropathy 05/05/201111/2012 DDD (degenerative disc disease), lumbar 05/05/2011 04/13/2012 Lumbar spondylosis 05/05/2011 3 Gait abnormality 04/28/2011 01/23/2023 Left bundle branch block 05/28/201003/2014 Perirectal abscess 08/10/2009 1 Esophageal reflux 11/10/2008 10/11/2014 Nonspecific abnormal results of liver function study 10/05/2008 04/28/2011 Overview: ? Due to high-moderate alcohol intake documented as of this encounter (statuses as of 06/04/2023) [facility] History of Past illness Narrative* Problem Noted Date Diagnosed Date Resolved Date Closed nondisplaced fracture of distal phalanx of right great toe 01/16/2021 11/13/2021 Macular hole of left eye 06/19/2020 Carotid artery stenosis 06/10/201910/2019 Overview: History: history of left carotid stenosis, s/p carotid endarterectomy with bovine patch angioplasty on 06/09. Assessment: incision c/d/i, pain and blood pressure well controlled Plan: - discharge today Elevated prostate specific antigen (PSA) 09/15/2016 10/21/2017 Osteoarthritis of lumbar spine 12/19/2015 04/20/2017 Chronic cough 10/04/2015 05/05/2016 Chronic rhinitis 10/04/2015 04/20/2017 External hemorrhoid 06/19/2014 06/02/19 Leg cramps 03/31/2014 10/11/2014 DDD (degenerative disc disease), lumbar 03/08/2014 04/20/2017 Lens replaced by other means 07/05/2013 04/20/2017 History of deep venous thrombosis 09/07/2012 05/17/2013 Rectal bleeding 06/30/2012 08/16/2012 PE (pulmonary embolism) 09/04/201111/2012 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 Lumbar facet arthropathy 05/05/201111/2012 DDD (degenerative disc disease), lumbar 05/05/2011 04/13/2012 Lumbar spondylosis 05/05/2011 3 Gait abnormality 04/28/2011 01/23/2023 Left bundle branch block 05/28/201003/2014 Perirectal abscess 08/10/2009 1 Esophageal reflux 11/10/2008 10/11/2014 Nonspecific abnormal results of liver function study 10/05/2008 04/28/2011 Overview: ? Due to high-moderate alcohol intake documented as of this encounter (statuses as of 06/05/2023) [facility] History of Past illness Narrative* Problem Noted Date Diagnosed Date Resolved Date Closed nondisplaced fracture of distal phalanx of right great toe 01/16/2021 11/13/2021 Macular hole of left eye 06/19/2020 Carotid artery stenosis 06/10/201910/2019 Overview: History: history of left carotid stenosis, s/p carotid endarterectomy with bovine patch angioplasty on 06/09. Assessment: incision c/d/i, pain and blood pressure well controlled Plan: - discharge today Elevated prostate specific antigen (PSA) 09/15/2016 10/21/2017 Osteoarthritis of lumbar spine 12/19/2015 04/20/2017 Chronic cough 10/04/2015 05/05/2016 Chronic rhinitis 10/04/2015 04/20/2017 External hemorrhoid 06/19/2014 06/02/19 Leg cramps 03/31/2014 10/11/2014 DDD (degenerative disc disease), lumbar 03/08/2014 04/20/2017 Lens replaced by other means 07/05/2013 04/20/2017 History of deep venous thrombosis 09/07/2012 05/17/2013 Rectal bleeding 06/30/2012 08/16/2012 PE (pulmonary embolism) 09/04/201111/2012 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 Lumbar facet arthropathy 05/05/201111/2012 DDD (degenerative disc disease), lumbar 05/05/2011 04/13/2012 Lumbar spondylosis 05/05/2011 3 Gait abnormality 04/28/2011 01/23/2023 Left bundle branch block 05/28/201003/2014 Perirectal abscess 08/10/2009 1 Esophageal reflux 11/10/2008 10/11/2014 Nonspecific abnormal results of liver function study 10/05/2008 04/28/2011 Overview: ? Due to high-moderate alcohol intake documented as of this encounter (statuses as of 06/08/2023) [facility] History of Past illness Narrative* Problem Noted Date Diagnosed Date Resolved Date Closed nondisplaced fracture of distal phalanx of right great toe 01/16/2021 11/13/2021 Macular hole of left eye 06/19/2020 Carotid artery stenosis 06/10/201910/2019 Overview: History: history of left carotid stenosis, s/p carotid endarterectomy with bovine patch angioplasty on 06/09. Assessment: incision c/d/i, pain and blood pressure well controlled Plan: - discharge today Elevated prostate specific antigen (PSA) 09/15/2016 10/21/2017 Osteoarthritis of lumbar spine 12/19/2015 04/20/2017 Chronic cough 10/04/2015 05/05/2016 Chronic rhinitis 10/04/2015 04/20/2017 External hemorrhoid 06/19/2014 06/02/19 23 Leg cramps 03/31/2014 10/11/2014 DDD (degenerative disc disease), lumbar 03/08/2014 04/20/2017 Lens replaced by other means 07/05/2013 04/20/2017 History of deep venous thrombosis 09/07/2012 05/17/2013 Rectal bleeding 06/30/2012 08/16/2012 PE (pulmonary embolism) 09/04/201111/2012 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 Lumbar facet arthropathy 05/05/201111/2012 DDD (degenerative disc disease), lumbar 05/05/2011 04/13/2012 Lumbar spondylosis 05/05/2011 3 Gait abnormality 04/28/2011 01/23/2023 Left bundle branch block 05/28/201003/2014 Perirectal abscess 08/10/2009 1 Esophageal reflux 11/10/2008 10/11/2014 Nonspecific abnormal results of liver function study 10/05/2008 04/28/2011 Overview: ? Due to high-moderate alcohol intake documented as of this encounter (statuses as of 06/10/2023) [facility] History of Past illness Narrative* Problem Noted Date Diagnosed Date Resolved Date Closed nondisplaced fracture of distal phalanx of right great toe 01/16/2021 11/13/2021 Macular hole of left eye 06/19/2020 Carotid artery stenosis 06/10/201910/2019 Overview: History: history of left carotid stenosis, s/p carotid endarterectomy with bovine patch angioplasty on 06/09. Assessment: incision c/d/i, pain and blood pressure well controlled Plan: - discharge today Elevated prostate specific antigen (PSA) 09/15/2016 10/21/2017 Osteoarthritis of lumbar spine 12/19/2015 04/20/2017 Chronic cough 10/04/2015 05/05/2016 Chronic rhinitis 10/04/2015 04/20/2017 External hemorrhoid 06/19/2014 06/02/19 23 Leg cramps 03/31/2014 10/11/2014 DDD (degenerative disc disease), lumbar 03/08/2014 04/20/2017 Lens replaced by other means 07/05/2013 04/20/2017 History of deep venous thrombosis 09/07/2012 05/17/2013 Rectal bleeding 06/30/2012 08/16/2012 PE (pulmonary embolism) 09/04/201111/2012 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 Lumbar facet arthropathy 05/05/201111/2012 DDD (degenerative disc disease), lumbar 05/05/2011 04/13/2012 Lumbar spondylosis 05/05/2011 3 Gait abnormality 04/28/2011 01/23/2023 Left bundle branch block 05/28/201003/2014 Perirectal abscess 08/10/2009 1 Esophageal reflux 11/10/2008 10/11/2014 Nonspecific abnormal results of liver function study 10/05/2008 04/28/2011 Overview: ? Due to high-moderate alcohol intake documented as of this encounter (statuses as of 06/11/2023) [facility] History of Past illness Narrative* Problem Noted Date Diagnosed Date Resolved Date Closed nondisplaced fracture of distal phalanx of right great toe 01/16/2021 11/13/2021 Macular hole of left eye 06/19/2020 Carotid artery stenosis 06/10/2019 0310/2019 Overview: History: history of left carotid stenosis, s/p carotid endarterectomy with bovine patch angioplasty on 06/09. Assessment: incision c/d/i, pain and blood pressure well controlled Plan: - discharge today Elevated prostate specific antigen (PSA) 09/15/2016 10/21/2017 Osteoarthritis of lumbar spine 12/19/2015 04/20/2017 Chronic cough 10/04/2015 05/05/2016 Chronic rhinitis 10/04/2015 04/20/2017 External hemorrhoid 06/19/2014 06/02/19 23 Leg cramps 03/31/2014 10/11/2014 DDD (degenerative disc disease), lumbar 03/08/2014 04/20/2017 Lens replaced by other means 07/05/2013 04/20/2017 History of deep venous thrombosis 09/07/2012 05/17/2013 Rectal bleeding 06/30/2012 08/16/2012 PE (pulmonary embolism) 09/04/201111/2012 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 Lumbar facet arthropathy 05/05/201111/2012 DDD (degenerative disc disease), lumbar 05/05/2011 04/13/2012 Lumbar spondylosis 05/05/2011 3 Gait abnormality 04/28/2011 01/23/2023 Left bundle branch block 05/28/201003/2014 Perirectal abscess 08/10/2009 1 Esophageal reflux 11/10/2008 10/11/2014 Nonspecific abnormal results of liver function study 10/05/2008 04/28/2011 Overview: ? Due to high-moderate alcohol intake documented as of this encounter (statuses as of 06/12/2023) [facility] History of Past illness Narrative* Problem Noted Date Diagnosed Date Resolved Date Closed nondisplaced fracture of distal phalanx of right great toe 01/16/2021 11/13/2021 Macular hole of left eye 06/19/2020 Carotid artery stenosis 06/10/201910/2019 Overview: History: history of left carotid stenosis, s/p carotid endarterectomy with bovine patch angioplasty on 06/09. Assessment: incision c/d/i, pain and blood pressure well controlled Plan: - discharge today Elevated prostate specific antigen (PSA) 09/15/2016 10/21/2017 Osteoarthritis of lumbar spine 12/19/2015 04/20/2017 Chronic cough 10/04/2015 05/05/2016 Chronic rhinitis 10/04/2015 04/20/2017 External hemorrhoid 06/19/2014 06/02/19 23 Leg cramps 03/31/2014 10/11/2014 DDD (degenerative disc disease), lumbar 03/08/2014 04/20/2017 Lens replaced by other means 07/05/2013 04/20/2017 History of deep venous thrombosis 09/07/2012 05/17/2013 Rectal bleeding 06/30/2012 08/16/2012 PE (pulmonary embolism) 09/04/201111/2012 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 Lumbar facet arthropathy 05/05/201111/2012 DDD (degenerative disc disease), lumbar 05/05/2011 04/13/2012 Lumbar spondylosis 05/05/2011 3 Gait abnormality 04/28/2011 01/23/2023 Left bundle branch block 05/28/201003/2014 Perirectal abscess 08/10/2009 1 Esophageal reflux 11/10/2008 10/11/2014 Nonspecific abnormal results of liver function study 10/05/2008 04/28/2011 Overview: ? Due to high-moderate alcohol intake documented as of this encounter (statuses as of 06/12/2023) [facility] History of Past illness Narrative* Problem Noted Date Diagnosed Date Resolved Date Closed nondisplaced fracture of distal phalanx of right great toe 01/16/2021 11/13/2021 Macular hole of left eye 06/19/2020 Carotid artery stenosis 06/10/201910/2019 Overview: History: history of left carotid stenosis, s/p carotid endarterectomy with bovine patch angioplasty on 06/09. Assessment: incision c/d/i, pain and blood pressure well controlled Plan: - discharge today Elevated prostate specific antigen (PSA) 09/15/2016 10/21/2017 Osteoarthritis of lumbar spine 12/19/2015 04/20/2017 Chronic cough 10/04/2015 05/05/2016 Chronic rhinitis 10/04/2015 04/20/2017 External hemorrhoid 06/19/2014 06/02/19 23 Leg cramps 03/31/2014 10/11/2014 DDD (degenerative disc disease), lumbar 03/08/2014 04/20/2017 Lens replaced by other means 07/05/2013 04/20/2017 History of deep venous thrombosis 09/07/2012 05/17/2013 Rectal bleeding 06/30/2012 08/16/2012 PE (pulmonary embolism) 09/04/201111/2012 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 Lumbar facet arthropathy 05/05/201111/2012 DDD (degenerative disc disease), lumbar 05/05/2011 04/13/2012 Lumbar spondylosis 05/05/2011 3 Gait abnormality 04/28/2011 01/23/2023 Left bundle branch block 05/28/201003/2014 Perirectal abscess 08/10/2009 1 Esophageal reflux 11/10/2008 10/11/2014 Nonspecific abnormal results of liver function study 10/05/2008 04/28/2011 Overview: ? Due to high-moderate alcohol intake documented as of this encounter (statuses as of 06/15/2023) [facility] History of Past illness Narrative* Problem Noted Date Diagnosed Date Resolved Date Closed nondisplaced fracture of distal phalanx of right great toe 01/16/2021 11/13/2021 Macular hole of left eye 06/19/2020 Carotid artery stenosis 06/10/201910/2019 Overview: History: history of left carotid stenosis, s/p carotid endarterectomy with bovine patch angioplasty on 06/09. Assessment: incision c/d/i, pain and blood pressure well controlled Plan: - discharge today Elevated prostate specific antigen (PSA) 09/15/2016 10/21/2017 Osteoarthritis of lumbar spine 12/19/2015 04/20/2017 Chronic cough 10/04/2015 05/05/2016 Chronic rhinitis 10/04/2015 04/20/2017 External hemorrhoid 06/19/2014 06/02/19 23 Leg cramps 03/31/2014 10/11/2014 DDD (degenerative disc disease), lumbar 03/08/2014 04/20/2017 Lens replaced by other means 07/05/2013 04/20/2017 History of deep venous thrombosis 09/07/2012 05/17/2013 Rectal bleeding 06/30/2012 08/16/2012 PE (pulmonary embolism) 09/04/201111/2012 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 Lumbar facet arthropathy 05/05/201111/2012 DDD (degenerative disc disease), lumbar 05/05/2011 04/13/2012 Lumbar spondylosis 05/05/2011 3 Gait abnormality 04/28/2011 01/23/2023 Left bundle branch block 05/28/201003/2014 Perirectal abscess 08/10/2009 1 Esophageal reflux 11/10/2008 10/11/2014 Nonspecific abnormal results of liver function study 10/05/2008 04/28/2011 Overview: ? Due to high-moderate alcohol intake documented as of this encounter (statuses as of 06/15/2023) [facility] History of Past illness Narrative* Problem Noted Date Diagnosed Date Resolved Date Closed nondisplaced fracture of distal phalanx of right great toe 01/16/2021 11/13/2021 Macular hole of left eye 06/19/2020 Carotid artery stenosis 06/10/201910/2019 Overview: History: history of left carotid stenosis, s/p carotid endarterectomy with bovine patch angioplasty on 06/09. Assessment: incision c/d/i, pain and blood pressure well controlled Plan: - discharge today Elevated prostate specific antigen (PSA) 09/15/2016 10/21/2017 Osteoarthritis of lumbar spine 12/19/2015 04/20/2017 Chronic cough 10/04/2015 05/05/2016 Chronic rhinitis 10/04/2015 04/20/2017 External hemorrhoid 06/19/2014 06/02/19 23 Leg cramps 03/31/2014 10/11/2014 DDD (degenerative disc disease), lumbar 03/08/2014 04/20/2017 Lens replaced by other means 07/05/2013 04/20/2017 History of deep venous thrombosis 09/07/2012 05/17/2013 Rectal bleeding 06/30/2012 08/16/2012 PE (pulmonary embolism) 09/04/201111/2012 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 Lumbar facet arthropathy 05/05/201111/2012 DDD (degenerative disc disease), lumbar 05/05/2011 04/13/2012 Lumbar spondylosis 05/05/2011 3 Gait abnormality 04/28/2011 01/23/2023 Left bundle branch block 05/28/201003/2014 Perirectal abscess 08/10/2009 1 Esophageal reflux 11/10/2008 10/11/2014 Nonspecific abnormal results of liver function study 10/05/2008 04/28/2011 Overview: ? Due to high-moderate alcohol intake documented as of this encounter (statuses as of 06/16/2023) [facility] History of Past illness Narrative* Problem Noted Date Diagnosed Date Resolved Date Closed nondisplaced fracture of distal phalanx of right great toe 01/16/2021 11/13/2021 Macular hole of left eye 06/19/2020 Carotid artery stenosis 06/10/201910/2019 Overview: History: history of left carotid stenosis, s/p carotid endarterectomy with bovine patch angioplasty on 06/09. Assessment: incision c/d/i, pain and blood pressure well controlled Plan: - discharge today Elevated prostate specific antigen (PSA) 09/15/2016 10/21/2017 Osteoarthritis of lumbar spine 12/19/2015 04/20/2017 Chronic cough 10/04/2015 05/05/2016 Chronic rhinitis 10/04/2015 04/20/2017 External hemorrhoid 06/19/2014 06/02/19 23 Leg cramps 03/31/2014 10/11/2014 DDD (degenerative disc disease), lumbar 03/08/2014 04/20/2017 Lens replaced by other means 07/05/2013 04/20/2017 History of deep venous thrombosis 09/07/2012 05/17/2013 Rectal bleeding 06/30/2012 08/16/2012 PE (pulmonary embolism) 09/04/201111/2012 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 Lumbar facet arthropathy 05/05/201111/2012 DDD (degenerative disc disease), lumbar 05/05/2011 04/13/2012 Lumbar spondylosis 05/05/2011 3 Gait abnormality 04/28/2011 01/23/2023 Left bundle branch block 05/28/201003/2014 Perirectal abscess 08/10/2009 1 Esophageal reflux 11/10/2008 10/11/2014 Nonspecific abnormal results of liver function study 10/05/2008 04/28/2011 Overview: ? Due to high-moderate alcohol intake documented as of this encounter (statuses as of 06/19/2023) [facility] History of Past illness Narrative* Problem Noted Date Diagnosed Date Resolved Date Closed nondisplaced fracture of distal phalanx of right great toe 01/16/2021 11/13/2021 Macular hole of left eye 06/19/2020 Carotid artery stenosis 06/10/201910/2019 Overview: History: history of left carotid stenosis, s/p carotid endarterectomy with bovine patch angioplasty on 06/09. Assessment: incision c/d/i, pain and blood pressure well controlled Plan: - discharge today Elevated prostate specific antigen (PSA) 09/15/2016 10/21/2017 Osteoarthritis of lumbar spine 12/19/2015 04/20/2017 Chronic cough 10/04/2015 05/05/2016 Chronic rhinitis 10/04/2015 04/20/2017 External hemorrhoid 06/19/2014 06/02/19 23 Leg cramps 03/31/2014 10/11/2014 DDD (degenerative disc disease), lumbar 03/08/2014 04/20/2017 Lens replaced by other means 07/05/2013 04/20/2017 History of deep venous thrombosis 09/07/2012 05/17/2013 Rectal bleeding 06/30/2012 08/16/2012 PE (pulmonary embolism) 09/04/201111/2012 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 Lumbar facet arthropathy 05/05/201111/2012 DDD (degenerative disc disease), lumbar 05/05/2011 04/13/2012 Lumbar spondylosis 05/05/2011 3 Gait abnormality 04/28/2011 01/23/2023 Left bundle branch block 05/28/201003/2014 Perirectal abscess 08/10/2009 1 Esophageal reflux 11/10/2008 10/11/2014 Nonspecific abnormal results of liver function study 10/05/2008 04/28/2011 Overview: ? Due to high-moderate alcohol intake documented as of this encounter (statuses as of 06/19/2023) [facility] History of Past illness Narrative* Problem Noted Date Diagnosed Date Resolved Date Closed nondisplaced fracture of distal phalanx of right great toe 01/16/2021 11/13/2021 Macular hole of left eye 06/19/2020 Carotid artery stenosis 06/10/201910/2019 Overview: History: history of left carotid stenosis, s/p carotid endarterectomy with bovine patch angioplasty on 06/09. Assessment: incision c/d/i, pain and blood pressure well controlled Plan: - discharge today Elevated prostate specific antigen (PSA) 09/15/2016 10/21/2017 Osteoarthritis of lumbar spine 12/19/2015 04/20/2017 Chronic cough 10/04/2015 05/05/2016 Chronic rhinitis 10/04/2015 04/20/2017 External hemorrhoid 06/19/2014 06/02/19 23 Leg cramps 03/31/2014 10/11/2014 DDD (degenerative disc disease), lumbar 03/08/2014 04/20/2017 Lens replaced by other means 07/05/2013 04/20/2017 History of deep venous thrombosis 09/07/2012 05/17/2013 Rectal bleeding 06/30/2012 08/16/2012 PE (pulmonary embolism) 09/04/201111/2012 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 Lumbar facet arthropathy 05/05/201111/2012 DDD (degenerative disc disease), lumbar 05/05/2011 04/13/2012 Lumbar spondylosis 05/05/2011 3 Gait abnormality 04/28/2011 01/23/2023 Left bundle branch block 05/28/201003/2014 Perirectal abscess 08/10/2009 1 Esophageal reflux 11/10/2008 10/11/2014 Nonspecific abnormal results of liver function study 10/05/2008 04/28/2011 Overview: ? Due to high-moderate alcohol intake documented as of this encounter (statuses as of 06/23/2023) [facility] History of Past illness Narrative* Problem Noted Date Diagnosed Date Resolved Date Closed nondisplaced fracture of distal phalanx of right great toe 01/16/2021 11/13/2021 Macular hole of left eye 06/19/2020 Carotid artery stenosis 06/10/201910/2019 Overview: History: history of left carotid stenosis, s/p carotid endarterectomy with bovine patch angioplasty on 06/09. Assessment: incision c/d/i, pain and blood pressure well controlled Plan: - discharge today Elevated prostate specific antigen (PSA) 09/15/2016 10/21/2017 Osteoarthritis of lumbar spine 12/19/2015 04/20/2017 Chronic cough 10/04/2015 05/05/2016 Chronic rhinitis 10/04/2015 04/20/2017 External hemorrhoid 06/19/2014 06/02/19 23 Leg cramps 03/31/2014 10/11/2014 DDD (degenerative disc disease), lumbar 03/08/2014 04/20/2017 Lens replaced by other means 07/05/2013 04/20/2017 History of deep venous thrombosis 09/07/2012 05/17/2013 Rectal bleeding 06/30/2012 08/16/2012 PE (pulmonary embolism) 09/04/201111/2012 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 Lumbar facet arthropathy 05/05/201111/2012 DDD (degenerative disc disease), lumbar 05/05/2011 04/13/2012 Lumbar spondylosis 05/05/2011 3 Gait abnormality 04/28/2011 01/23/2023 Left bundle branch block 05/28/201003/2014 Perirectal abscess 08/10/2009 1 Esophageal reflux 11/10/2008 10/11/2014 Nonspecific abnormal results of liver function study 10/05/2008 04/28/2011 Overview: ? Due to high-moderate alcohol intake documented as of this encounter (statuses as of 06/26/2023) [facility] History of Past illness Narrative* Problem Noted Date Diagnosed Date Resolved Date Closed nondisplaced fracture of distal phalanx of right great toe 01/16/2021 11/13/2021 Macular hole of left eye 06/19/2020 Carotid artery stenosis 06/10/2019 0310/2019 Overview: History: history of left carotid stenosis, s/p carotid endarterectomy with bovine patch angioplasty on 06/09. Assessment: incision c/d/i, pain and blood pressure well controlled Plan: - discharge today Elevated prostate specific antigen (PSA) 09/15/2016 10/21/2017 Osteoarthritis of lumbar spine 12/19/2015 04/20/2017 Chronic cough 10/04/2015 05/05/2016 Chronic rhinitis 10/04/2015 04/20/2017 External hemorrhoid 06/19/2014 06/02/19 23 Leg cramps 03/31/2014 10/11/2014 DDD (degenerative disc disease), lumbar 03/08/2014 04/20/2017 Lens replaced by other means 07/05/2013 04/20/2017 History of deep venous thrombosis 09/07/2012 05/17/2013 Rectal bleeding 06/30/2012 08/16/2012 PE (pulmonary embolism) 09/04/201111/2012 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 Lumbar facet arthropathy 05/05/201111/2012 DDD (degenerative disc disease), lumbar 05/05/2011 04/13/2012 Lumbar spondylosis 05/05/2011 3 Gait abnormality 04/28/2011 01/23/2023 Left bundle branch block 05/28/201003/2014 Perirectal abscess 08/10/2009 1 Esophageal reflux 11/10/2008 10/11/2014 Nonspecific abnormal results of liver function study 10/05/2008 04/28/2011 Overview: ? Due to high-moderate alcohol intake documented as of this encounter (statuses as of 06/29/2023) [facility] History of Past illness Narrative* Problem Noted Date Diagnosed Date Resolved Date Closed nondisplaced fracture of distal phalanx of right great toe 01/16/2021 11/13/2021 Macular hole of left eye 06/19/2020 Carotid artery stenosis 06/10/2019 030 10/2019 Overview: History: history of left carotid stenosis, s/p carotid endarterectomy with bovine patch angioplasty on 06/09. Assessment: incision c/d/i, pain and blood pressure well controlled Plan: - discharge today Elevated prostate specific antigen (PSA) 09/15/2016 10/21/2017 Osteoarthritis of lumbar spine 12/19/2015 04/20/2017 Chronic cough 10/04/2015 05/05/2016 Chronic rhinitis 10/04/2015 04/20/2017 External hemorrhoid 06/19/2014 06/02/19 23 Leg cramps 03/31/2014 10/11/2014 DDD (degenerative disc disease), lumbar 03/08/2014 04/20/2017 Lens replaced by other means 07/05/2013 04/20/2017 History of deep venous thrombosis 09/07/2012 05/17/2013 Rectal bleeding 06/30/2012 08/16/2012 PE (pulmonary embolism) 09/04/201111/2012 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 Lumbar facet arthropathy 05/05/201111/2012 DDD (degenerative disc disease), lumbar 05/05/2011 04/13/2012 Lumbar spondylosis 05/05/2011 3 Gait abnormality 04/28/2011 01/23/2023 Left bundle branch block 05/28/201003/2014 Perirectal abscess 08/10/2009 1 Esophageal reflux 11/10/2008 10/11/2014 Nonspecific abnormal results of liver function study 10/05/2008 04/28/2011 Overview: ? Due to high-moderate alcohol intake documented as of this encounter (statuses as of 06/30/2023) [facility] History of Past illness Narrative* Problem Noted Date Diagnosed Date Resolved Date Closed nondisplaced fracture of distal phalanx of right great toe 01/16/2021 11/13/2021 Macular hole of left eye 06/19/2020 Carotid artery stenosis 06/10/201910/2019 Overview: History: history of left carotid stenosis, s/p carotid endarterectomy with bovine patch angioplasty on 06/09. Assessment: incision c/d/i, pain and blood pressure well controlled Plan: - discharge today Elevated prostate specific antigen (PSA) 09/15/2016 10/21/2017 Osteoarthritis of lumbar spine 12/19/2015 04/20/2017 Chronic cough 10/04/2015 05/05/2016 Chronic rhinitis 10/04/2015 04/20/2017 External hemorrhoid 06/19/2014 06/02/19 Leg cramps 03/31/2014 10/11/2014 DDD (degenerative disc disease), lumbar 03/08/2014 04/20/2017 Lens replaced by other means 07/05/2013 04/20/2017 History of deep venous thrombosis 09/07/2012 05/17/2013 Rectal bleeding 06/30/2012 08/16/2012 PE (pulmonary embolism) 09/04/201111/2012 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 Lumbar facet arthropathy 05/05/201111/2012 DDD (degenerative disc disease), lumbar 05/05/2011 04/13/2012 Lumbar spondylosis 05/05/2011 3 Gait abnormality 04/28/2011 01/23/2023 Left bundle branch block 05/28/201003/2014 Perirectal abscess 08/10/2009 1 Esophageal reflux 11/10/2008 10/11/2014 Nonspecific abnormal results of liver function study 10/05/2008 04/28/2011 Overview: ? Due to high-moderate alcohol intake documented as of this encounter (statuses as of 07/07/2023) [facility] History of Past illness Narrative* Problem Noted Date Diagnosed Date Resolved Date Closed nondisplaced fracture of distal phalanx of right great toe 01/16/2021 11/13/2021 Macular hole of left eye 06/19/2020 Carotid artery stenosis 06/10/2019 0310/2019 Overview: History: history of left carotid stenosis, s/p carotid endarterectomy with bovine patch angioplasty on 06/09. Assessment: incision c/d/i, pain and blood pressure well controlled Plan: - discharge today Elevated prostate specific antigen (PSA) 09/15/2016 10/21/2017 Osteoarthritis of lumbar spine 12/19/2015 04/20/2017 Chronic cough 10/04/2015 05/05/2016 Chronic rhinitis 10/04/2015 04/20/2017 External hemorrhoid 06/19/2014 06/02/19 Leg cramps 03/31/2014 10/11/2014 DDD (degenerative disc disease), lumbar 03/08/2014 04/20/2017 Lens replaced by other means 07/05/2013 04/20/2017 History of deep venous thrombosis 09/07/2012 05/17/2013 Rectal bleeding 06/30/2012 08/16/2012 PE (pulmonary embolism) 09/04/201111/2012 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 Lumbar facet arthropathy 05/05/201111/2012 DDD (degenerative disc disease), lumbar 05/05/2011 04/13/2012 Lumbar spondylosis 05/05/2011 3 Gait abnormality 04/28/2011 01/23/2023 Left bundle branch block 05/28/201003/2014 Perirectal abscess 08/10/2009 1 Esophageal reflux 11/10/2008 10/11/2014 Nonspecific abnormal results of liver function study 10/05/2008 04/28/2011 Overview: ? Due to high-moderate alcohol intake documented as of this encounter (statuses as of 07/16/2023) [facility] History of Past illness Narrative* Problem Noted Date Diagnosed Date Resolved Date Closed nondisplaced fracture of distal phalanx of right great toe 01/16/2021 11/13/2021 Macular hole of left eye 06/19/2020 Carotid artery stenosis 06/10/201910/2019 Overview: History: history of left carotid stenosis, s/p carotid endarterectomy with bovine patch angioplasty on 06/09. Assessment: incision c/d/i, pain and blood pressure well controlled Plan: - discharge today Elevated prostate specific antigen (PSA) 09/15/2016 10/21/2017 Osteoarthritis of lumbar spine 12/19/2015 04/20/2017 Chronic cough 10/04/2015 05/05/2016 Chronic rhinitis 10/04/2015 04/20/2017 External hemorrhoid 06/19/2014 06/02/19 Leg cramps 03/31/2014 10/11/2014 DDD (degenerative disc disease), lumbar 03/08/2014 04/20/2017 Lens replaced by other means 07/05/2013 04/20/2017 History of deep venous thrombosis 09/07/2012 05/17/2013 Rectal bleeding 06/30/2012 08/16/2012 PE (pulmonary embolism) 09/04/201111/2012 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 Lumbar facet arthropathy 05/05/201111/2012 DDD (degenerative disc disease), lumbar 05/05/2011 04/13/2012 Lumbar spondylosis 05/05/2011 3 Gait abnormality 04/28/2011 01/23/2023 Left bundle branch block 05/28/201003/2014 Perirectal abscess 08/10/2009 1 Esophageal reflux 11/10/2008 10/11/2014 Nonspecific abnormal results of liver function study 10/05/2008 04/28/2011 Overview: ? Due to high-moderate alcohol intake documented as of this encounter (statuses as of 07/16/2023) [facility] History of Past illness Narrative* Problem Noted Date Diagnosed Date Resolved Date Closed nondisplaced fracture of distal phalanx of right great toe 01/16/2021 11/13/2021 Macular hole of left eye 06/19/2020 Carotid artery stenosis 06/10/201910/2019 Overview: History: history of left carotid stenosis, s/p carotid endarterectomy with bovine patch angioplasty on 06/09. Assessment: incision c/d/i, pain and blood pressure well controlled Plan: - discharge today Elevated prostate specific antigen (PSA) 09/15/2016 10/21/2017 Osteoarthritis of lumbar spine 12/19/2015 04/20/2017 Chronic cough 10/04/2015 05/05/2016 Chronic rhinitis 10/04/2015 04/20/2017 External hemorrhoid 06/19/2014 06/02/19 Leg cramps 03/31/2014 10/11/2014 DDD (degenerative disc disease), lumbar 03/08/2014 04/20/2017 Lens replaced by other means 07/05/2013 04/20/2017 History of deep venous thrombosis 09/07/2012 05/17/2013 Rectal bleeding 06/30/2012 08/16/2012 PE (pulmonary embolism) 09/04/201111/2012 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 Lumbar facet arthropathy 05/05/201111/2012 DDD (degenerative disc disease), lumbar 05/05/2011 04/13/2012 Lumbar spondylosis 05/05/2011 3 Gait abnormality 04/28/2011 01/23/2023 Left bundle branch block 05/28/201003/2014 Perirectal abscess 08/10/2009 1 Esophageal reflux 11/10/2008 10/11/2014 Nonspecific abnormal results of liver function study 10/05/2008 04/28/2011 Overview: ? Due to high-moderate alcohol intake documented as of this encounter (statuses as of 07/16/2023) [facility]21 History of Past illness Narrative* Problem Noted Date Diagnosed Date Resolved Date Closed nondisplaced fracture of distal phalanx of right great toe 01/16/2021 11/13/2021 Macular hole of left eye 06/19/2020 Carotid artery stenosis 06/10/201910/2019 Overview: History: history of left carotid stenosis, s/p carotid endarterectomy with bovine patch angioplasty on 06/09. Assessment: incision c/d/i, pain and blood pressure well controlled Plan: - discharge today Elevated prostate specific antigen (PSA) 09/15/2016 10/21/2017 Osteoarthritis of lumbar spine 12/19/2015 04/20/2017 Chronic cough 10/04/2015 05/05/2016 Chronic rhinitis 10/04/2015 04/20/2017 External hemorrhoid 06/19/2014 06/02/19 Leg cramps 03/31/2014 10/11/2014 DDD (degenerative disc disease), lumbar 03/08/2014 04/20/2017 Lens replaced by other means 07/05/2013 04/20/2017 History of deep venous thrombosis 09/07/2012 05/17/2013 Rectal bleeding 06/30/2012 08/16/2012 PE (pulmonary embolism) 09/04/201111/2012 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 Lumbar facet arthropathy 05/05/201111/2012 DDD (degenerative disc disease), lumbar 05/05/2011 04/13/2012 Lumbar spondylosis 05/05/2011 3 Gait abnormality 04/28/2011 01/23/2023 Left bundle branch block 05/28/201003/2014 Perirectal abscess 08/10/2009 1 Esophageal reflux 11/10/2008 10/11/2014 Nonspecific abnormal results of liver function study 10/05/2008 04/28/2011 Overview: ? Due to high-moderate alcohol intake documented as of this encounter (statuses as of 07/17/2023) [facility] History of Past illness Narrative* Problem Noted Date Diagnosed Date Resolved Date Closed nondisplaced fracture of distal phalanx of right great toe 01/16/2021 11/13/2021 Macular hole of left eye 06/19/2020 Carotid artery stenosis 06/10/201910/2019 Overview: History: history of left carotid stenosis, s/p carotid endarterectomy with bovine patch angioplasty on 06/09. Assessment: incision c/d/i, pain and blood pressure well controlled Plan: - discharge today Elevated prostate specific antigen (PSA) 09/15/2016 10/21/2017 Osteoarthritis of lumbar spine 12/19/2015 04/20/2017 Chronic cough 10/04/2015 05/05/2016 Chronic rhinitis 10/04/2015 04/20/2017 External hemorrhoid 06/19/2014 06/02/19 Leg cramps 03/31/2014 10/11/2014 DDD (degenerative disc disease), lumbar 03/08/2014 04/20/2017 Lens replaced by other means 07/05/2013 04/20/2017 History of deep venous thrombosis 09/07/2012 05/17/2013 Rectal bleeding 06/30/2012 08/16/2012 PE (pulmonary embolism) 09/04/201111/2012 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 Lumbar facet arthropathy 05/05/201111/2012 DDD (degenerative disc disease), lumbar 05/05/2011 04/13/2012 Lumbar spondylosis 05/05/2011 3 Gait abnormality 04/28/2011 01/23/2023 Left bundle branch block 05/28/201003/2014 Perirectal abscess 08/10/2009 1 Esophageal reflux 11/10/2008 10/11/2014 Nonspecific abnormal results of liver function study 10/05/2008 04/28/2011 Overview: ? Due to high-moderate alcohol intake documented as of this encounter (statuses as of 07/17/2023) [facility] History of Past illness Narrative* Problem Noted Date Diagnosed Date Resolved Date Closed nondisplaced fracture of distal phalanx of right great toe 01/16/2021 11/13/2021 Macular hole of left eye 06/19/2020 Carotid artery stenosis 06/10/2019 03/0 10/2019 Overview: History: history of left carotid stenosis, s/p carotid endarterectomy with bovine patch angioplasty on 06/09. Assessment: incision c/d/i, pain and blood pressure well controlled Plan: - discharge today Elevated prostate specific antigen (PSA) 09/15/2016 10/21/2017 Osteoarthritis of lumbar spine 12/19/2015 04/20/2017 Chronic cough 10/04/2015 05/05/2016 Chronic rhinitis 10/04/2015 04/20/2017 External hemorrhoid 06/19/2014 06/02/19 23 Leg cramps 03/31/2014 10/11/2014 DDD (degenerative disc disease), lumbar 03/08/2014 04/20/2017 Lens replaced by other means 07/05/2013 04/20/2017 History of deep venous thrombosis 09/07/2012 05/17/2013 Rectal bleeding 06/30/2012 08/16/2012 PE (pulmonary embolism) 09/04/201111/2012 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 Lumbar facet arthropathy 05/05/201111/2012 DDD (degenerative disc disease), lumbar 05/05/2011 04/13/2012 Lumbar spondylosis 05/05/2011 3 Gait abnormality 04/28/2011 01/23/2023 Left bundle branch block 05/28/201003/2014 Perirectal abscess 08/10/2009 1 Esophageal reflux 11/10/2008 10/11/2014 Nonspecific abnormal results of liver function study 10/05/2008 04/28/2011 Overview: ? Due to high-moderate alcohol intake documented as of this encounter (statuses as of 07/20/2023) [facility] History of Past illness Narrative* Problem Noted Date Diagnosed Date Resolved Date Closed nondisplaced fracture of distal phalanx of right great toe 01/16/2021 11/13/2021 Macular hole of left eye 06/19/2020 Carotid artery stenosis 06/10/2019 03/0 10/2019 Overview: History: history of left carotid stenosis, s/p carotid endarterectomy with bovine patch angioplasty on 06/09. Assessment: incision c/d/i, pain and blood pressure well controlled Plan: - discharge today Elevated prostate specific antigen (PSA) 09/15/2016 10/21/2017 Osteoarthritis of lumbar spine 12/19/2015 04/20/2017 Chronic cough 10/04/2015 05/05/2016 Chronic rhinitis 10/04/2015 04/20/2017 External hemorrhoid 06/19/2014 06/02/19 23 Leg cramps 03/31/2014 10/11/2014 DDD (degenerative disc disease), lumbar 03/08/2014 04/20/2017 Lens replaced by other means 07/05/2013 04/20/2017 History of deep venous thrombosis 09/07/2012 05/17/2013 Rectal bleeding 06/30/2012 08/16/2012 PE (pulmonary embolism) 09/04/201111/2012 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 Lumbar facet arthropathy 05/05/201111/2012 DDD (degenerative disc disease), lumbar 05/05/2011 04/13/2012 Lumbar spondylosis 05/05/2011 3 Gait abnormality 04/28/2011 01/23/2023 Left bundle branch block 05/28/201003/2014 Perirectal abscess 08/10/2009 1 Esophageal reflux 11/10/2008 10/11/2014 Nonspecific abnormal results of liver function study 10/05/2008 04/28/2011 Overview: ? Due to high-moderate alcohol intake documented as of this encounter (statuses as of 07/21/2023) [facility] History of Past illness Narrative* Problem Noted Date Diagnosed Date Resolved Date Closed nondisplaced fracture of distal phalanx of right great toe 01/16/2021 11/13/2021 Macular hole of left eye 06/19/2020 Carotid artery stenosis 06/10/2019 0310/2019 Overview: History: history of left carotid stenosis, s/p carotid endarterectomy with bovine patch angioplasty on 06/09. Assessment: incision c/d/i, pain and blood pressure well controlled Plan: - discharge today Elevated prostate specific antigen (PSA) 09/15/2016 10/21/2017 Osteoarthritis of lumbar spine 12/19/2015 04/20/2017 Chronic cough 10/04/2015 05/05/2016 Chronic rhinitis 10/04/2015 04/20/2017 External hemorrhoid 06/19/2014 06/02/19 Leg cramps 03/31/2014 10/11/2014 DDD (degenerative disc disease), lumbar 03/08/2014 04/20/2017 Lens replaced by other means 07/05/2013 04/20/2017 History of deep venous thrombosis 09/07/2012 05/17/2013 Rectal bleeding 06/30/2012 08/16/2012 PE (pulmonary embolism) 09/04/201111/2012 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 Lumbar facet arthropathy 05/05/201111/2012 DDD (degenerative disc disease), lumbar 05/05/2011 04/13/2012 Lumbar spondylosis 05/05/2011 3 Gait abnormality 04/28/2011 01/23/2023 Left bundle branch block 05/28/201003/2014 Perirectal abscess 08/10/2009 1 Esophageal reflux 11/10/2008 10/11/2014 Nonspecific abnormal results of liver function study 10/05/2008 04/28/2011 Overview: ? Due to high-moderate alcohol intake documented as of this encounter (statuses as of 07/21/2023) [facility] History of Past illness Narrative* Problem Noted Date Diagnosed Date Resolved Date Closed nondisplaced fracture of distal phalanx of right great toe 01/16/2021 11/13/2021 Macular hole of left eye 06/19/2020 Carotid artery stenosis 06/10/201910/2019 Overview: History: history of left carotid stenosis, s/p carotid endarterectomy with bovine patch angioplasty on 06/09. Assessment: incision c/d/i, pain and blood pressure well controlled Plan: - discharge today Elevated prostate specific antigen (PSA) 09/15/2016 10/21/2017 Osteoarthritis of lumbar spine 12/19/2015 04/20/2017 Chronic cough 10/04/2015 05/05/2016 Chronic rhinitis 10/04/2015 04/20/2017 External hemorrhoid 06/19/2014 06/02/19 23 Leg cramps 03/31/2014 10/11/2014 DDD (degenerative disc disease), lumbar 03/08/2014 04/20/2017 Lens replaced by other means 07/05/2013 04/20/2017 History of deep venous thrombosis 09/07/2012 05/17/2013 Rectal bleeding 06/30/2012 08/16/2012 PE (pulmonary embolism) 09/04/201111/2012 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 Lumbar facet arthropathy 05/05/201111/2012 DDD (degenerative disc disease), lumbar 05/05/2011 04/13/2012 Lumbar spondylosis 05/05/2011 3 Gait abnormality 04/28/2011 01/23/2023 Left bundle branch block 05/28/201003/2014 Perirectal abscess 08/10/2009 1 Esophageal reflux 11/10/2008 10/11/2014 Nonspecific abnormal results of liver function study 10/05/2008 04/28/2011 Overview: ? Due to high-moderate alcohol intake documented as of this encounter (statuses as of 07/22/2023) [facility] History of Past illness Narrative* Problem Noted Date Diagnosed Date Resolved Date Closed nondisplaced fracture of distal phalanx of right great toe 01/16/2021 11/13/2021 Macular hole of left eye 06/19/2020 Carotid artery stenosis 06/10/2019 03/10/2019 Overview: History: history of left carotid stenosis, s/p carotid endarterectomy with bovine patch angioplasty on 06/09. Assessment: incision c/d/i, pain and blood pressure well controlled Plan: - discharge today Elevated prostate specific antigen (PSA) 09/15/2016 10/21/2017 Osteoarthritis of lumbar spine 12/19/2015 04/20/2017 Chronic cough 10/04/2015 05/05/2016 Chronic rhinitis 10/04/2015 04/20/2017 External hemorrhoid 06/19/2014 06/02/19 23 Leg cramps 03/31/2014 10/11/2014 DDD (degenerative disc disease), lumbar 03/08/2014 04/20/2017 Lens replaced by other means 07/05/2013 04/20/2017 History of deep venous thrombosis 09/07/2012 05/17/2013 Rectal bleeding 06/30/2012 08/16/2012 PE (pulmonary embolism) 09/04/201111/2012 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 Lumbar facet arthropathy 05/05/201111/2012 DDD (degenerative disc disease), lumbar 05/05/2011 04/13/2012 Lumbar spondylosis 05/05/2011 3 Gait abnormality 04/28/2011 01/23/2023 Left bundle branch block 05/28/201003/2014 Perirectal abscess 08/10/2009 1 Esophageal reflux 11/10/2008 10/11/2014 Nonspecific abnormal results of liver function study 10/05/2008 04/28/2011 Overview: ? Due to high-moderate alcohol intake documented as of this encounter (statuses as of 07/24/2023) [facility] History of Present illness Narrative* Jennifer Gomes Tech (Tech) - 01/13/2020 10:10 AM EDT Radiology Service Progress Note PATIENT NAME: Alex Brooks DATE OF SERVICE: January 13, 2020 TIME: 10:12 AM PATIENT IDENTITY VERIFICATION COMPLETED USING TWO (2) IDENTIFIERS: Name and Date of confirmedby patient verbally. FALL SCREENING: Has the patient had 2 falls in the last year or 1 fall with injury or currently using an Ambulatory Assistive Device (Walker, Cane, Wheelchair, Crutches, etc.)? Yes, Patient High Riskfor Falls What interventions were put in place to prevent falls during this visit? [place] Risk Wristband Applied and Increased Observations by Caregivers PATIENT GENDER DATA: Male PATIENT RELEVANT IMPLANT DATA REVIEWED: Not Applicable RADIOLOGY DEPARTMENT: General X-ray: Exam(s) Completed: Upper Extremity X- Ray(s): Wrist, right : PERIPHERAL IV DATA: Not applicable SIGNED BY: Bernardino Barillas January 13, 2020 10:12 AM [facility] of Past illness Narrative* Problem Noted Date Resolved Date Carotid artery stenosis 06/10/2019 06/11/19 20 Overview: History: history of left carotid stenosis, s/p carotid endarterectomy with bovine patch angioplasty on 06/09. Assessment: incision c/d/i, pain and blood pressure well controlled Plan: - discharge today Elevated prostate specific antigen (PSA) 017 10/21/2017 Osteoarthritis of lumbar spine 12/19/2015 0 04/20/2017 Chronic cough 10/04/2015 05/05/2016 Chronic rhinitis 10/04/2015 04/20/2017 Leg cramps 03/31/2014 10/11/2014 DDD (degenerative disc disease), lumbar 03/08/20 14 04/20/2017 Lens replaced by other means 07/05/2013 History of deep venous thrombosis 09/07/2012 05/17/2013 Rectal bleeding 06/30/2012 08/16/2012 PE (pulmonary embolism) 09/04/2011 04/13/19 13 Degeneration of lumbar or lumbosacral interverte bral disc 08/07/2011 04/13/2012 Lumbosacral spondylosis without myelopathy 08/0610/21/2017 Ureterolithiasis 05/07/2011 04/13/2012 Overview: Right side. Lumbar facet arthropathy 05/05/2011 013 DDD (degenerative disc disease), lumbar 05/05/19 12 04/13/2012 Lumbar spondylosis 05/05/2011 04/13/2012 Left bundle branch block 05/28/2010 014 Perirectal abscess 08/10/2009 05/28/2010 Esophageal reflux 11/10/2008 10/11/2014 Impaired fasting glucose 10/11/2008 013 Overview: Under 110; See labs 10/12 Nonspecific abnormal results of liver function s tudy 10/05/2008 04/28/2011 Overview: ? Due to high-moderate alcohol intake documented as of this encounter (statuses as of 06/27/2021) [facility] History of Past illness Narrative* Problem Noted Date Resolved Date Carotid artery stenosis 06/10/2019 06/11/19 20 Overview: History: history of left carotid stenosis, s/p carotid endarterectomy with bovine patch angioplasty on 06/09. Assessment: incision c/d/i, pain and blood pressure well controlled Plan: - discharge today Elevated prostate specific antigen (PSA) 017 10/21/2017 Osteoarthritis of lumbar spine 12/19/2015 0 04/20/2017 Chronic cough 10/04/2015 05/05/2016 Chronic rhinitis 10/04/2015 04/20/2017 Leg cramps 03/31/2014 10/11/2014 DDD (degenerative disc disease), lumbar 03/08/20 14 04/20/2017 Lens replaced by other means 07/05/2013 History of deep venous thrombosis 09/07/2012 05/17/2013 Rectal bleeding 06/30/2012 08/16/2012 PE (pulmonary embolism) 09/04/2011 04/13/19 13 Degeneration of lumbar or lumbosacral interverte bral disc 08/07/2011 04/13/2012 Lumbosacral spondylosis without myelopathy 08/0610/21/2017 Ureterolithiasis 05/07/2011 04/13/2012 Overview: Right side. Lumbar facet arthropathy 05/05/2011 013 DDD (degenerative disc disease), lumbar 05/05/19 12 04/13/2012 Lumbar spondylosis 05/05/2011 04/13/2012 Left bundle branch block 05/28/2010 014 Perirectal abscess 08/10/2009 05/28/2010 Esophageal reflux 11/10/2008 10/11/2014 Impaired fasting glucose 10/11/2008 013 Overview: Under 110; See labs 10/12 Nonspecific abnormal results of liver function s tudy 10/05/2008 04/28/2011 Overview: ? Due to high-moderate alcohol intake documented as of this encounter (statuses as of 07/03/2021) [facility] History of Past illness Narrative* Problem Noted Date Resolved Date Carotid artery stenosis 06/10/2019 06/11/19 20 Overview: History: history of left carotid stenosis, s/p carotid endarterectomy with bovine patch angioplasty on 06/09. Assessment: incision c/d/i, pain and blood pressure well controlled Plan: - discharge today Elevated prostate specific antigen (PSA) 017 10/21/2017 Osteoarthritis of lumbar spine 12/19/2015 0 04/20/2017 Chronic cough 10/04/2015 05/05/2016 Chronic rhinitis 10/04/2015 04/20/2017 Leg cramps 03/31/2014 10/11/2014 DDD (degenerative disc disease), lumbar 03/08/20 14 04/20/2017 Lens replaced by other means 07/05/2013 History of deep venous thrombosis 09/07/2012 05/17/2013 Rectal bleeding 06/30/2012 08/16/2012 PE (pulmonary embolism) 09/04/2011 04/13/19 13 Degeneration of lumbar or lumbosacral interverte bral disc 08/07/2011 04/13/2012 Lumbosacral spondylosis without myelopathy 08/0610/21/2017 Ureterolithiasis 05/07/2011 04/13/2012 Overview: Right side. Lumbar facet arthropathy 05/05/2011 013 DDD (degenerative disc disease), lumbar 05/05/19 12 04/13/2012 Lumbar spondylosis 05/05/2011 04/13/2012 Left bundle branch block 05/28/2010 014 Perirectal abscess 08/10/2009 05/28/2010 Esophageal reflux 11/10/2008 10/11/2014 Impaired fasting glucose 10/11/2008 013 Overview: Under 110; See labs 10/12 Nonspecific abnormal results of liver function s tudy 10/05/2008 04/28/2011 Overview: ? Due to high-moderate alcohol intake documented as of this encounter (statuses as of 07/10/2021) [facility] History of Past illness Narrative* Problem Noted Date Resolved Date Carotid artery stenosis 06/10/2019 06/11/19 20 Overview: History: history of left carotid stenosis, s/p carotid endarterectomy with bovine patch angioplasty on 06/09. Assessment: incision c/d/i, pain and blood pressure well controlled Plan: - discharge today Elevated prostate specific antigen (PSA) 017 10/21/2017 Osteoarthritis of lumbar spine 12/19/2015 0 04/20/2017 Chronic cough 10/04/2015 05/05/2016 Chronic rhinitis 10/04/2015 04/20/2017 Leg cramps 03/31/2014 10/11/2014 DDD (degenerative disc disease), lumbar 03/08/20 14 04/20/2017 Lens replaced by other means 07/05/2013 History of deep venous thrombosis 09/07/2012 05/17/2013 Rectal bleeding 06/30/2012 08/16/2012 PE (pulmonary embolism) 09/04/2011 04/13/19 13 Degeneration of lumbar or lumbosacral interverte bral disc 08/07/2011 04/13/2012 Lumbosacral spondylosis without myelopathy 08/0610/21/2017 Ureterolithiasis 05/07/2011 04/13/2012 Overview: Right side. Lumbar facet arthropathy 05/05/2011 013 DDD (degenerative disc disease), lumbar 05/05/19 12 04/13/2012 Lumbar spondylosis 05/05/2011 04/13/2012 Left bundle branch block 05/28/2010 014 Perirectal abscess 08/10/2009 05/28/2010 Esophageal reflux 11/10/2008 10/11/2014 Impaired fasting glucose 10/11/2008 013 Overview: Under 110; See labs 10/12 Nonspecific abnormal results of liver function s tudy 10/05/2008 04/28/2011 Overview: ? Due to high-moderate alcohol intake documented as of this encounter (statuses as of 07/12/2021) [facility] History of Past illness Narrative* Problem Noted Date Resolved Date Carotid artery stenosis 06/10/2019 06/11/19 20 Overview: History: history of left carotid stenosis, s/p carotid endarterectomy with bovine patch angioplasty on 06/09. Assessment: incision c/d/i, pain and blood pressure well controlled Plan: - discharge today Elevated prostate specific antigen (PSA) 017 10/21/2017 Osteoarthritis of lumbar spine 12/19/2015 0 04/20/2017 Chronic cough 10/04/2015 05/05/2016 Chronic rhinitis 10/04/2015 04/20/2017 Leg cramps 03/31/2014 10/11/2014 DDD (degenerative disc disease), lumbar 03/08/20 14 04/20/2017 Lens replaced by other means 07/05/2013 History of deep venous thrombosis 09/07/2012 05/17/2013 Rectal bleeding 06/30/2012 08/16/2012 PE (pulmonary embolism) 09/04/2011 04/13/19 13 Degeneration of lumbar or lumbosacral interverte bral disc 08/07/2011 04/13/2012 Lumbosacral spondylosis without myelopathy 08/0610/21/2017 Ureterolithiasis 05/07/2011 04/13/2012 Overview: Right side. Lumbar facet arthropathy 05/05/2011 013 DDD (degenerative disc disease), lumbar 05/05/19 12 04/13/2012 Lumbar spondylosis 05/05/2011 04/13/2012 Left bundle branch block 05/28/2010 014 Perirectal abscess 08/10/2009 05/28/2010 Esophageal reflux 11/10/2008 10/11/2014 Impaired fasting glucose 10/11/2008 013 Overview: Under 110; See labs 10/12 Nonspecific abnormal results of liver function s tudy 10/05/2008 04/28/2011 Overview: ? Due to high-moderate alcohol intake documented as of this encounter (statuses as of 07/24/2021) [facility] of Past illness Narrative* Problem Noted Date Resolved Date Carotid artery stenosis 06/10/2019 06/11/19 20 Overview: History: history of left carotid stenosis, s/p carotid endarterectomy with bovine patch angioplasty on 06/09. Assessment: incision c/d/i, pain and blood pressure well controlled Plan: - discharge today Elevated prostate specific antigen (PSA) 017 10/21/2017 Osteoarthritis of lumbar spine 12/19/2015 0 04/20/2017 Chronic cough 10/04/2015 05/05/2016 Chronic rhinitis 10/04/2015 04/20/2017 Leg cramps 03/31/2014 10/11/2014 DDD (degenerative disc disease), lumbar 03/08/20 14 04/20/2017 Lens replaced by other means 07/05/2013 History of deep venous thrombosis 09/07/2012 05/17/2013 Rectal bleeding 06/30/2012 08/16/2012 PE (pulmonary embolism) 09/04/2011 04/13/19 13 Degeneration of lumbar or lumbosacral interverte bral disc 08/07/2011 04/13/2012 Lumbosacral spondylosis without myelopathy 08/0610/21/2017 Ureterolithiasis 05/07/2011 04/13/2012 Overview: Right side. Lumbar facet arthropathy 05/05/2011 013 DDD (degenerative disc disease), lumbar 05/05/19 12 04/13/2012 Lumbar spondylosis 05/05/2011 04/13/2012 Left bundle branch block 05/28/2010 014 Perirectal abscess 08/10/2009 05/28/2010 Esophageal reflux 11/10/2008 10/11/2014 Impaired fasting glucose 10/11/2008 013 Overview: Under 110; See labs 10/12 Nonspecific abnormal results of liver function s tudy 10/05/2008 04/28/2011 Overview: ? Due to high-moderate alcohol intake documented as of this encounter (statuses as of 08/07/2021) [facility] Past illness Narrative* Problem Noted Date Resolved Date Carotid artery stenosis 06/10/2019 06/11/19 20 Overview: History: history of left carotid stenosis, s/p carotid endarterectomy with bovine patch angioplasty on 06/09. Assessment: incision c/d/i, pain and blood pressure well controlled Plan: - discharge today Elevated prostate specific antigen (PSA) 017 10/21/2017 Osteoarthritis of lumbar spine 12/19/2015 0 04/20/2017 Chronic cough 10/04/2015 05/05/2016 Chronic rhinitis 10/04/2015 04/20/2017 Leg cramps 03/31/2014 10/11/2014 DDD (degenerative disc disease), lumbar 03/08/20 14 04/20/2017 Lens replaced by other means 07/05/2013 History of deep venous thrombosis 09/07/2012 05/17/2013 Rectal bleeding 06/30/2012 08/16/2012 PE (pulmonary embolism) 09/04/2011 04/13/19 13 Degeneration of lumbar or lumbosacral interverte bral disc 08/07/2011 04/13/2012 Lumbosacral spondylosis without myelopathy 08/0610/21/2017 Ureterolithiasis 05/07/2011 04/13/2012 Overview: Right side. Lumbar facet arthropathy 05/05/2011 013 DDD (degenerative disc disease), lumbar 05/05/19 12 04/13/2012 Lumbar spondylosis 05/05/2011 04/13/2012 Left bundle branch block 05/28/2010 014 Perirectal abscess 08/10/2009 05/28/2010 Esophageal reflux 11/10/2008 10/11/2014 Impaired fasting glucose 10/11/2008 013 Overview: Under 110; See labs 10/12 Nonspecific abnormal results of liver function s tudy 10/05/2008 04/28/2011 Overview: ? Due to high-moderate alcohol intake documented as of this encounter (statuses as of 08/08/2021) [facility]03-[facility]-2020 History of Past illness Narrative* Problem Noted Date Resolved Date Carotid artery stenosis 06/10/2019 06/11/19 20 Overview: History: history of left carotid stenosis, s/p carotid endarterectomy with bovine patch angioplasty on 06/09. Assessment: incision c/d/i, pain and blood pressure well controlled Plan: - discharge today Elevated prostate specific antigen (PSA) 017 10/21/2017 Osteoarthritis of lumbar spine 12/19/2015 0 04/20/2017 Chronic cough 10/04/2015 05/05/2016 Chronic rhinitis 10/04/2015 04/20/2017 Leg cramps 03/31/2014 10/11/2014 DDD (degenerative disc disease), lumbar 03/08/20 14 04/20/2017 Lens replaced by other means 07/05/2013 History of deep venous thrombosis 09/07/2012 05/17/2013 Rectal bleeding 06/30/2012 08/16/2012 PE (pulmonary embolism) 09/04/2011 04/13/19 13 Degeneration of lumbar or lumbosacral interverte bral disc 08/07/2011 04/13/2012 Lumbosacral spondylosis without myelopathy 08/0610/21/2017 Ureterolithiasis 05/07/2011 04/13/2012 Overview: Right side. Lumbar facet arthropathy 05/05/2011 013 DDD (degenerative disc disease), lumbar 05/05/19 12 04/13/2012 Lumbar spondylosis 05/05/2011 04/13/2012 Left bundle branch block 05/28/2010 014 Perirectal abscess 08/10/2009 05/28/2010 Esophageal reflux 11/10/2008 10/11/2014 Impaired fasting glucose 10/11/2008 013 Overview: Under 110; See labs 10/12 Nonspecific abnormal results of liver function s tudy 10/05/2008 04/28/2011 Overview: ? Due to high-moderate alcohol intake documented as of this encounter (statuses as of 08/12/2021) [facility]03-[facility]2020 History of Past illness Narrative* Problem Noted Date Resolved Date Carotid artery stenosis 06/10/2019 06/11/19 20 Overview: History: history of left carotid stenosis, s/p carotid endarterectomy with bovine patch angioplasty on 06/09. Assessment: incision c/d/i, pain and blood pressure well controlled Plan: - discharge today Elevated prostate specific antigen (PSA) 017 10/21/2017 Osteoarthritis of lumbar spine 12/19/2015 0 04/20/2017 Chronic cough 10/04/2015 05/05/2016 Chronic rhinitis 10/04/2015 04/20/2017 Leg cramps 03/31/2014 10/11/2014 DDD (degenerative disc disease), lumbar 03/08/20 14 04/20/2017 Lens replaced by other means 07/05/2013 History of deep venous thrombosis 09/07/2012 05/17/2013 Rectal bleeding 06/30/2012 08/16/2012 PE (pulmonary embolism) 09/04/2011 04/13/19 13 Degeneration of lumbar or lumbosacral interverte bral disc 08/07/2011 04/13/2012 Lumbosacral spondylosis without myelopathy 08/0610/21/2017 Ureterolithiasis 05/07/2011 04/13/2012 Overview: Right side. Lumbar facet arthropathy 05/05/2011 013 DDD (degenerative disc disease), lumbar 05/05/19 12 04/13/2012 Lumbar spondylosis 05/05/2011 04/13/2012 Left bundle branch block 05/28/2010 014 Perirectal abscess 08/10/2009 05/28/2010 Esophageal reflux 11/10/2008 10/11/2014 Impaired fasting glucose 10/11/2008 013 Overview: Under 110; See labs 10/12 Nonspecific abnormal results of liver function s tudy 10/05/2008 04/28/2011 Overview: ? Due to high-moderate alcohol intake documented as of this encounter (statuses as of 08/15/2021) [facility]03-[facility]2020 History of Past illness Narrative* Problem Noted Date Resolved Date Carotid artery stenosis 06/10/2019 06/11/19 20 Overview: History: history of left carotid stenosis, s/p carotid endarterectomy with bovine patch angioplasty on 06/09. Assessment: incision c/d/i, pain and blood pressure well controlled Plan: - discharge today Elevated prostate specific antigen (PSA) 017 10/21/2017 Osteoarthritis of lumbar spine 12/19/2015 0 04/20/2017 Chronic cough 10/04/2015 05/05/2016 Chronic rhinitis 10/04/2015 04/20/2017 Leg cramps 03/31/2014 10/11/2014 DDD (degenerative disc disease), lumbar 03/08/20 14 04/20/2017 Lens replaced by other means 07/05/2013 History of deep venous thrombosis 09/07/2012 05/17/2013 Rectal bleeding 06/30/2012 08/16/2012 PE (pulmonary embolism) 09/04/2011 04/13/19 13 Degeneration of lumbar or lumbosacral interverte bral disc 08/07/2011 04/13/2012 Lumbosacral spondylosis without myelopathy 08/0610/21/2017 Ureterolithiasis 05/07/2011 04/13/2012 Overview: Right side. Lumbar facet arthropathy 05/05/2011 013 DDD (degenerative disc disease), lumbar 05/05/19 12 04/13/2012 Lumbar spondylosis 05/05/2011 04/13/2012 Left bundle branch block 05/28/2010 014 Perirectal abscess 08/10/2009 05/28/2010 Esophageal reflux 11/10/2008 10/11/2014 Impaired fasting glucose 10/11/2008 013 Overview: Under 110; See labs 10/12 Nonspecific abnormal results of liver function s tudy 10/05/2008 04/28/2011 Overview: ? Due to high-moderate alcohol intake documented as of this encounter (statuses as of 08/16/2021) [facility]03-[facility]2020 History of Past illness Narrative* Problem Noted Date Resolved Date Carotid artery stenosis 06/10/2019 06/11/19 20 Overview: History: history of left carotid stenosis, s/p carotid endarterectomy with bovine patch angioplasty on 06/09. Assessment: incision c/d/i, pain and blood pressure well controlled Plan: - discharge today Elevated prostate specific antigen (PSA) 017 10/21/2017 Osteoarthritis of lumbar spine 12/19/2015 0 04/20/2017 Chronic cough 10/04/2015 05/05/2016 Chronic rhinitis 10/04/2015 04/20/2017 Leg cramps 03/31/2014 10/11/2014 DDD (degenerative disc disease), lumbar 03/08/20 14 04/20/2017 Lens replaced by other means 07/05/2013 History of deep venous thrombosis 09/07/2012 05/17/2013 Rectal bleeding 06/30/2012 08/16/2012 PE (pulmonary embolism) 09/04/2011 04/13/19 13 Degeneration of lumbar or lumbosacral interverte bral disc 08/07/2011 04/13/2012 Lumbosacral spondylosis without myelopathy 08/0610/21/2017 Ureterolithiasis 05/07/2011 04/13/2012 Overview: Right side. Lumbar facet arthropathy 05/05/2011 013 DDD (degenerative disc disease), lumbar 05/05/19 12 04/13/2012 Lumbar spondylosis 05/05/2011 04/13/2012 Left bundle branch block 05/28/2010 014 Perirectal abscess 08/10/2009 05/28/2010 Esophageal reflux 11/10/2008 10/11/2014 Impaired fasting glucose 10/11/2008 013 Overview: Under 110; See labs 10/12 Nonspecific abnormal results of liver function s tudy 10/05/2008 04/28/2011 Overview: ? Due to high-moderate alcohol intake documented as of this encounter (statuses as of 08/20/2021) [facility]03[facility]2020 History of Past illness Narrative* Problem Noted Date Resolved Date Carotid artery stenosis 06/10/2019 06/11/19 20 Overview: History: history of left carotid stenosis, s/p carotid endarterectomy with bovine patch angioplasty on 06/09. Assessment: incision c/d/i, pain and blood pressure well controlled Plan: - discharge today Elevated prostate specific antigen (PSA) 017 10/21/2017 Osteoarthritis of lumbar spine 12/19/2015 0 04/20/2017 Chronic cough 10/04/2015 05/05/2016 Chronic rhinitis 10/04/2015 04/20/2017 Leg cramps 03/31/2014 10/11/2014 DDD (degenerative disc disease), lumbar 03/08/20 14 04/20/2017 Lens replaced by other means 07/05/2013 History of deep venous thrombosis 09/07/2012 05/17/2013 Rectal bleeding 06/30/2012 08/16/2012 PE (pulmonary embolism) 09/04/2011 04/13/19 13 Degeneration of lumbar or lumbosacral interverte bral disc 08/07/2011 04/13/2012 Lumbosacral spondylosis without myelopathy 08/0610/21/2017 Ureterolithiasis 05/07/2011 04/13/2012 Overview: Right side. Lumbar facet arthropathy 05/05/2011 013 DDD (degenerative disc disease), lumbar 05/05/19 12 04/13/2012 Lumbar spondylosis 05/05/2011 04/13/2012 Left bundle branch block 05/28/2010 014 Perirectal abscess 08/10/2009 05/28/2010 Esophageal reflux 11/10/2008 10/11/2014 Impaired fasting glucose 10/11/2008 013 Overview: Under 110; See labs 10/12 Nonspecific abnormal results of liver function s tudy 10/05/2008 04/28/2011 Overview: ? Due to high-moderate alcohol intake documented as of this encounter (statuses as of 08/22/2021) [facility] History of Past illness Narrative* Problem Noted Date Resolved Date Carotid artery stenosis 06/10/2019 06/11/19 20 Overview: History: history of left carotid stenosis, s/p carotid endarterectomy with bovine patch angioplasty on 06/09. Assessment: incision c/d/i, pain and blood pressure well controlled Plan: - discharge today Elevated prostate specific antigen (PSA) 017 10/21/2017 Osteoarthritis of lumbar spine 12/19/2015 0 04/20/2017 Chronic cough 10/04/2015 05/05/2016 Chronic rhinitis 10/04/2015 04/20/2017 Leg cramps 03/31/2014 10/11/2014 DDD (degenerative disc disease), lumbar 03/08/20 14 04/20/2017 Lens replaced by other means 07/05/2013 History of deep venous thrombosis 09/07/2012 05/17/2013 Rectal bleeding 06/30/2012 08/16/2012 PE (pulmonary embolism) 09/04/2011 04/13/19 13 Degeneration of lumbar or lumbosacral interverte bral disc 08/07/2011 04/13/2012 Lumbosacral spondylosis without myelopathy 08/0610/21/2017 Ureterolithiasis 05/07/2011 04/13/2012 Overview: Right side. Lumbar facet arthropathy 05/05/2011 013 DDD (degenerative disc disease), lumbar 05/05/19 12 04/13/2012 Lumbar spondylosis 05/05/2011 04/13/2012 Left bundle branch block 05/28/2010 014 Perirectal abscess 08/10/2009 05/28/2010 Esophageal reflux 11/10/2008 10/11/2014 Impaired fasting glucose 10/11/2008 013 Overview: Under 110; See labs 10/12 Nonspecific abnormal results of liver function s tudy 10/05/2008 04/28/2011 Overview: ? Due to high-moderate alcohol intake documented as of this encounter (statuses as of 08/23/2021) [facility] History of Past illness Narrative* Problem Noted Date Resolved Date Carotid artery stenosis 06/10/2019 06/11/19 20 Overview: History: history of left carotid stenosis, s/p carotid endarterectomy with bovine patch angioplasty on 06/09. Assessment: incision c/d/i, pain and blood pressure well controlled Plan: - discharge today Elevated prostate specific antigen (PSA) 017 10/21/2017 Osteoarthritis of lumbar spine 12/19/2015 0 04/20/2017 Chronic cough 10/04/2015 05/05/2016 Chronic rhinitis 10/04/2015 04/20/2017 Leg cramps 03/31/2014 10/11/2014 DDD (degenerative disc disease), lumbar 03/08/20 14 04/20/2017 Lens replaced by other means 07/05/2013 History of deep venous thrombosis 09/07/2012 05/17/2013 Rectal bleeding 06/30/2012 08/16/2012 PE (pulmonary embolism) 09/04/2011 04/13/19 13 Degeneration of lumbar or lumbosacral interverte bral disc 08/07/2011 04/13/2012 Lumbosacral spondylosis without myelopathy 08/0610/21/2017 Ureterolithiasis 05/07/2011 04/13/2012 Overview: Right side. Lumbar facet arthropathy 05/05/2011 013 DDD (degenerative disc disease), lumbar 05/05/19 12 04/13/2012 Lumbar spondylosis 05/05/2011 04/13/2012 Left bundle branch block 05/28/2010 014 Perirectal abscess 08/10/2009 05/28/2010 Esophageal reflux 11/10/2008 10/11/2014 Impaired fasting glucose 10/11/2008 013 Overview: Under 110; See labs 10/12 Nonspecific abnormal results of liver function s tudy 10/05/2008 04/28/2011 Overview: ? Due to high-moderate alcohol intake documented as of this encounter (statuses as of 08/23/2021) [facility] History of Past illness Narrative* Problem Noted Date Resolved Date Carotid artery stenosis 06/10/2019 06/11/19 20 Overview: History: history of left carotid stenosis, s/p carotid endarterectomy with bovine patch angioplasty on 06/09. Assessment: incision c/d/i, pain and blood pressure well controlled Plan: - discharge today Elevated prostate specific antigen (PSA) 017 10/21/2017 Osteoarthritis of lumbar spine 12/19/2015 0 04/20/2017 Chronic cough 10/04/2015 05/05/2016 Chronic rhinitis 10/04/2015 04/20/2017 Leg cramps 03/31/2014 10/11/2014 DDD (degenerative disc disease), lumbar 03/08/20 14 04/20/2017 Lens replaced by other means 07/05/2013 History of deep venous thrombosis 09/07/2012 05/17/2013 Rectal bleeding 06/30/2012 08/16/2012 PE (pulmonary embolism) 09/04/2011 04/13/19 13 Degeneration of lumbar or lumbosacral interverte bral disc 08/07/2011 04/13/2012 Lumbosacral spondylosis without myelopathy 08/0610/21/2017 Ureterolithiasis 05/07/2011 04/13/2012 Overview: Right side. Lumbar facet arthropathy 05/05/2011 013 DDD (degenerative disc disease), lumbar 05/05/19 12 04/13/2012 Lumbar spondylosis 05/05/2011 04/13/2012 Left bundle branch block 05/28/2010 014 Perirectal abscess 08/10/2009 05/28/2010 Esophageal reflux 11/10/2008 10/11/2014 Impaired fasting glucose 10/11/2008 013 Overview: Under 110; See labs 10/12 Nonspecific abnormal results of liver function s tudy 10/05/2008 04/28/2011 Overview: ? Due to high-moderate alcohol intake documented as of this encounter (statuses as of 09/04/2021) [facility]2020 History of Past illness Narrative* Problem Noted Date Resolved Date Carotid artery stenosis 06/10/2019 06/11/19 20 Overview: History: history of left carotid stenosis, s/p carotid endarterectomy with bovine patch angioplasty on 06/09. Assessment: incision c/d/i, pain and blood pressure well controlled Plan: - discharge today Elevated prostate specific antigen (PSA) 017 10/21/2017 Osteoarthritis of lumbar spine 12/19/2015 0 04/20/2017 Chronic cough 10/04/2015 05/05/2016 Chronic rhinitis 10/04/2015 04/20/2017 Leg cramps 03/31/2014 10/11/2014 DDD (degenerative disc disease), lumbar 03/08/20 14 04/20/2017 Lens replaced by other means 07/05/2013 History of deep venous thrombosis 09/07/2012 05/17/2013 Rectal bleeding 06/30/2012 08/16/2012 PE (pulmonary embolism) 09/04/2011 04/13/19 13 Degeneration of lumbar or lumbosacral interverte bral disc 08/07/2011 04/13/2012 Lumbosacral spondylosis without myelopathy 08/0610/21/2017 Ureterolithiasis 05/07/2011 04/13/2012 Overview: Right side. Lumbar facet arthropathy 05/05/2011 013 DDD (degenerative disc disease), lumbar 05/05/19 12 04/13/2012 Lumbar spondylosis 05/05/2011 04/13/2012 Left bundle branch block 05/28/2010 014 Perirectal abscess 08/10/2009 05/28/2010 Esophageal reflux 11/10/2008 10/11/2014 Impaired fasting glucose 10/11/2008 013 Overview: Under 110; See labs 10/12 Nonspecific abnormal results of liver function s tudy 10/05/2008 04/28/2011 Overview: ? Due to high-moderate alcohol intake documented as of this encounter (statuses as of 09/04/2021) [facility] History of Past illness Narrative* Problem Noted Date Resolved Date Carotid artery stenosis 06/10/2019 06/11/19 20 Overview: History: history of left carotid stenosis, s/p carotid endarterectomy with bovine patch angioplasty on 06/09. Assessment: incision c/d/i, pain and blood pressure well controlled Plan: - discharge today Elevated prostate specific antigen (PSA) 017 10/21/2017 Osteoarthritis of lumbar spine 12/19/2015 0 04/20/2017 Chronic cough 10/04/2015 05/05/2016 Chronic rhinitis 10/04/2015 04/20/2017 Leg cramps 03/31/2014 10/11/2014 DDD (degenerative disc disease), lumbar 03/08/20 14 04/20/2017 Lens replaced by other means 07/05/2013 History of deep venous thrombosis 09/07/2012 05/17/2013 Rectal bleeding 06/30/2012 08/16/2012 PE (pulmonary embolism) 09/04/2011 04/13/19 13 Degeneration of lumbar or lumbosacral interverte bral disc 08/07/2011 04/13/2012 Lumbosacral spondylosis without myelopathy 08/0610/21/2017 Ureterolithiasis 05/07/2011 04/13/2012 Overview: Right side. Lumbar facet arthropathy 05/05/2011 013 DDD (degenerative disc disease), lumbar 05/05/19 12 04/13/2012 Lumbar spondylosis 05/05/2011 04/13/2012 Left bundle branch block 05/28/2010 014 Perirectal abscess 08/10/2009 05/28/2010 Esophageal reflux 11/10/2008 10/11/2014 Impaired fasting glucose 10/11/2008 013 Overview: Under 110; See labs 10/12 Nonspecific abnormal results of liver function s tudy 10/05/2008 04/28/2011 Overview: ? Due to high-moderate alcohol intake documented as of this encounter (statuses as of 09/18/2021) [facility] History of Past illness Narrative* Problem Noted Date Resolved Date Carotid artery stenosis 06/10/2019 06/11/19 20 Overview: History: history of left carotid stenosis, s/p carotid endarterectomy with bovine patch angioplasty on 06/09. Assessment: incision c/d/i, pain and blood pressure well controlled Plan: - discharge today Elevated prostate specific antigen (PSA) 017 10/21/2017 Osteoarthritis of lumbar spine 12/19/2015 0 04/20/2017 Chronic cough 10/04/2015 05/05/2016 Chronic rhinitis 10/04/2015 04/20/2017 Leg cramps 03/31/2014 10/11/2014 DDD (degenerative disc disease), lumbar 03/08/20 14 04/20/2017 Lens replaced by other means 07/05/2013 History of deep venous thrombosis 09/07/2012 05/17/2013 Rectal bleeding 06/30/2012 08/16/2012 PE (pulmonary embolism) 09/04/2011 04/13/19 13 Degeneration of lumbar or lumbosacral interverte bral disc 08/07/2011 04/13/2012 Lumbosacral spondylosis without myelopathy 08/0610/21/2017 Ureterolithiasis 05/07/2011 04/13/2012 Overview: Right side. Lumbar facet arthropathy 05/05/2011 013 DDD (degenerative disc disease), lumbar 05/05/19 12 04/13/2012 Lumbar spondylosis 05/05/2011 04/13/2012 Left bundle branch block 05/28/2010 014 Perirectal abscess 08/10/2009 05/28/2010 Esophageal reflux 11/10/2008 10/11/2014 Impaired fasting glucose 10/11/2008 013 Overview: Under 110; See labs 10/12 Nonspecific abnormal results of liver function s tudy 10/05/2008 04/28/2011 Overview: ? Due to high-moderate alcohol intake documented as of this encounter (statuses as of 09/20/2021) [facility] History of Past illness Narrative* Problem Noted Date Resolved Date Carotid artery stenosis 06/10/2019 06/11/19 20 Overview: History: history of left carotid stenosis, s/p carotid endarterectomy with bovine patch angioplasty on 06/09. Assessment: incision c/d/i, pain and blood pressure well controlled Plan: - discharge today Elevated prostate specific antigen (PSA) 017 10/21/2017 Osteoarthritis of lumbar spine 12/19/2015 0 04/20/2017 Chronic cough 10/04/2015 05/05/2016 Chronic rhinitis 10/04/2015 04/20/2017 Leg cramps 03/31/2014 10/11/2014 DDD (degenerative disc disease), lumbar 03/08/20 14 04/20/2017 Lens replaced by other means 07/05/2013 History of deep venous thrombosis 09/07/2012 05/17/2013 Rectal bleeding 06/30/2012 08/16/2012 PE (pulmonary embolism) 09/04/2011 04/13/19 13 Degeneration of lumbar or lumbosacral interverte bral disc 08/07/2011 04/13/2012 Lumbosacral spondylosis without myelopathy 08/0610/21/2017 Ureterolithiasis 05/07/2011 04/13/2012 Overview: Right side. Lumbar facet arthropathy 05/05/2011 013 DDD (degenerative disc disease), lumbar 05/05/19 12 04/13/2012 Lumbar spondylosis 05/05/2011 04/13/2012 Left bundle branch block 05/28/2010 014 Perirectal abscess 08/10/2009 05/28/2010 Esophageal reflux 11/10/2008 10/11/2014 Impaired fasting glucose 10/11/2008 013 Overview: Under 110; See labs 10/12 Nonspecific abnormal results of liver function s tudy 10/05/2008 04/28/2011 Overview: ? Due to high-moderate alcohol intake documented as of this encounter (statuses as of 09/23/2021) [facility] History of Past illness Narrative* Problem Noted Date Resolved Date Carotid artery stenosis 06/10/2019 06/11/19 20 Overview: History: history of left carotid stenosis, s/p carotid endarterectomy with bovine patch angioplasty on 06/09. Assessment: incision c/d/i, pain and blood pressure well controlled Plan: - discharge today Elevated prostate specific antigen (PSA) 017 10/21/2017 Osteoarthritis of lumbar spine 12/19/2015 0 04/20/2017 Chronic cough 10/04/2015 05/05/2016 Chronic rhinitis 10/04/2015 04/20/2017 Leg cramps 03/31/2014 10/11/2014 DDD (degenerative disc disease), lumbar 03/08/20 14 04/20/2017 Lens replaced by other means 07/05/2013 History of deep venous thrombosis 09/07/2012 05/17/2013 Rectal bleeding 06/30/2012 08/16/2012 PE (pulmonary embolism) 09/04/2011 04/13/19 13 Degeneration of lumbar or lumbosacral interverte bral disc 08/07/2011 04/13/2012 Lumbosacral spondylosis without myelopathy 08/0610/21/2017 Ureterolithiasis 05/07/2011 04/13/2012 Overview: Right side. Lumbar facet arthropathy 05/05/2011 013 DDD (degenerative disc disease), lumbar 05/05/19 12 04/13/2012 Lumbar spondylosis 05/05/2011 04/13/2012 Left bundle branch block 05/28/2010 014 Perirectal abscess 08/10/2009 05/28/2010 Esophageal reflux 11/10/2008 10/11/2014 Impaired fasting glucose 10/11/2008 013 Overview: Under 110; See labs 10/12 Nonspecific abnormal results of liver function s tudy 10/05/2008 04/28/2011 Overview: ? Due to high-moderate alcohol intake documented as of this encounter (statuses as of 09/23/2021) [facility] History of Past illness Narrative* Problem Noted Date Resolved Date Carotid artery stenosis 06/10/2019 06/11/19 20 Overview: History: history of left carotid stenosis, s/p carotid endarterectomy with bovine patch angioplasty on 06/09. Assessment: incision c/d/i, pain and blood pressure well controlled Plan: - discharge today Elevated prostate specific antigen (PSA) 017 10/21/2017 Osteoarthritis of lumbar spine 12/19/2015 0 04/20/2017 Chronic cough 10/04/2015 05/05/2016 Chronic rhinitis 10/04/2015 04/20/2017 Leg cramps 03/31/2014 10/11/2014 DDD (degenerative disc disease), lumbar 03/08/20 14 04/20/2017 Lens replaced by other means 07/05/2013 History of deep venous thrombosis 09/07/2012 05/17/2013 Rectal bleeding 06/30/2012 08/16/2012 PE (pulmonary embolism) 09/04/2011 04/13/19 13 Degeneration of lumbar or lumbosacral interverte bral disc 08/07/2011 04/13/2012 Lumbosacral spondylosis without myelopathy 08/0610/21/2017 Ureterolithiasis 05/07/2011 04/13/2012 Overview: Right side. Lumbar facet arthropathy 05/05/2011 013 DDD (degenerative disc disease), lumbar 05/05/19 12 04/13/2012 Lumbar spondylosis 05/05/2011 04/13/2012 Left bundle branch block 05/28/2010 014 Perirectal abscess 08/10/2009 05/28/2010 Esophageal reflux 11/10/2008 10/11/2014 Impaired fasting glucose 10/11/2008 013 Overview: Under 110; See labs 10/12 Nonspecific abnormal results of liver function s tudy 10/05/2008 04/28/2011 Overview: ? Due to high-moderate alcohol intake documented as of this encounter (statuses as of 10/02/2021) [facility] History of Past illness Narrative* Problem Noted Date Resolved Date Carotid artery stenosis 06/10/2019 06/11/19 20 Overview: History: history of left carotid stenosis, s/p carotid endarterectomy with bovine patch angioplasty on 06/09. Assessment: incision c/d/i, pain and blood pressure well controlled Plan: - discharge today Elevated prostate specific antigen (PSA) 017 10/21/2017 Osteoarthritis of lumbar spine 12/19/2015 0 04/20/2017 Chronic cough 10/04/2015 05/05/2016 Chronic rhinitis 10/04/2015 04/20/2017 Leg cramps 03/31/2014 10/11/2014 DDD (degenerative disc disease), lumbar 03/08/20 14 04/20/2017 Lens replaced by other means 07/05/2013 History of deep venous thrombosis 09/07/2012 05/17/2013 Rectal bleeding 06/30/2012 08/16/2012 PE (pulmonary embolism) 09/04/2011 04/13/19 13 Degeneration of lumbar or lumbosacral interverte bral disc 08/07/2011 04/13/2012 Lumbosacral spondylosis without myelopathy 08/0610/21/2017 Ureterolithiasis 05/07/2011 04/13/2012 Overview: Right side. Lumbar facet arthropathy 05/05/2011 013 DDD (degenerative disc disease), lumbar 05/05/19 12 04/13/2012 Lumbar spondylosis 05/05/2011 04/13/2012 Left bundle branch block 05/28/2010 014 Perirectal abscess 08/10/2009 05/28/2010 Esophageal reflux 11/10/2008 10/11/2014 Impaired fasting glucose 10/11/2008 013 Overview: Under 110; See labs 10/12 Nonspecific abnormal results of liver function s tudy 10/05/2008 04/28/2011 Overview: ? Due to high-moderate alcohol intake documented as of this encounter (statuses as of 10/03/2021) [facility] History of Past illness Narrative* Problem Noted Date Resolved Date Carotid artery stenosis 06/10/2019 06/11/19 20 Overview: History: history of left carotid stenosis, s/p carotid endarterectomy with bovine patch angioplasty on 06/09. Assessment: incision c/d/i, pain and blood pressure well controlled Plan: - discharge today Elevated prostate specific antigen (PSA) 017 10/21/2017 Osteoarthritis of lumbar spine 12/19/2015 0 04/20/2017 Chronic cough 10/04/2015 05/05/2016 Chronic rhinitis 10/04/2015 04/20/2017 Leg cramps 03/31/2014 10/11/2014 DDD (degenerative disc disease), lumbar 03/08/20 14 04/20/2017 Lens replaced by other means 07/05/2013 History of deep venous thrombosis 09/07/2012 05/17/2013 Rectal bleeding 06/30/2012 08/16/2012 PE (pulmonary embolism) 09/04/2011 04/13/19 13 Degeneration of lumbar or lumbosacral interverte bral disc 08/07/2011 04/13/2012 Lumbosacral spondylosis without myelopathy 08/0610/21/2017 Ureterolithiasis 05/07/2011 04/13/2012 Overview: Right side. Lumbar facet arthropathy 05/05/2011 013 DDD (degenerative disc disease), lumbar 05/05/19 12 04/13/2012 Lumbar spondylosis 05/05/2011 04/13/2012 Left bundle branch block 05/28/2010 014 Perirectal abscess 08/10/2009 05/28/2010 Esophageal reflux 11/10/2008 10/11/2014 Impaired fasting glucose 10/11/2008 013 Overview: Under 110; See labs 10/12 Nonspecific abnormal results of liver function s tudy 10/05/2008 04/28/2011 Overview: ? Due to high-moderate alcohol intake documented as of this encounter (statuses as of 10/14/2021) [facility] History of Past illness Narrative* Problem Noted Date Resolved Date Carotid artery stenosis 06/10/2019 06/11/19 20 Overview: History: history of left carotid stenosis, s/p carotid endarterectomy with bovine patch angioplasty on 06/09. Assessment: incision c/d/i, pain and blood pressure well controlled Plan: - discharge today Elevated prostate specific antigen (PSA) 017 10/21/2017 Osteoarthritis of lumbar spine 12/19/2015 0 04/20/2017 Chronic cough 10/04/2015 05/05/2016 Chronic rhinitis 10/04/2015 04/20/2017 Leg cramps 03/31/2014 10/11/2014 DDD (degenerative disc disease), lumbar 03/08/20 14 04/20/2017 Lens replaced by other means 07/05/2013 History of deep venous thrombosis 09/07/2012 05/17/2013 Rectal bleeding 06/30/2012 08/16/2012 PE (pulmonary embolism) 09/04/2011 04/13/19 13 Degeneration of lumbar or lumbosacral interverte bral disc 08/07/2011 04/13/2012 Lumbosacral spondylosis without myelopathy 08/0610/21/2017 Ureterolithiasis 05/07/2011 04/13/2012 Overview: Right side. Lumbar facet arthropathy 05/05/2011 013 DDD (degenerative disc disease), lumbar 05/05/19 12 04/13/2012 Lumbar spondylosis 05/05/2011 04/13/2012 Left bundle branch block 05/28/2010 014 Perirectal abscess 08/10/2009 05/28/2010 Esophageal reflux 11/10/2008 10/11/2014 Impaired fasting glucose 10/11/2008 013 Overview: Under 110; See labs 10/12 Nonspecific abnormal results of liver function s tudy 10/05/2008 04/28/2011 Overview: ? Due to high-moderate alcohol intake documented as of this encounter (statuses as of 10/16/2021) [facility] History of Past illness Narrative* Problem Noted Date Resolved Date Carotid artery stenosis 06/10/2019 06/11/19 20 Overview: History: history of left carotid stenosis, s/p carotid endarterectomy with bovine patch angioplasty on 06/09. Assessment: incision c/d/i, pain and blood pressure well controlled Plan: - discharge today Elevated prostate specific antigen (PSA) 017 10/21/2017 Osteoarthritis of lumbar spine 12/19/2015 0 04/20/2017 Chronic cough 10/04/2015 05/05/2016 Chronic rhinitis 10/04/2015 04/20/2017 Leg cramps 03/31/2014 10/11/2014 DDD (degenerative disc disease), lumbar 03/08/20 14 04/20/2017 Lens replaced by other means 07/05/2013 History of deep venous thrombosis 09/07/2012 05/17/2013 Rectal bleeding 06/30/2012 08/16/2012 PE (pulmonary embolism) 09/04/2011 04/13/19 13 Degeneration of lumbar or lumbosacral interverte bral disc 08/07/2011 04/13/2012 Lumbosacral spondylosis without myelopathy 08/0610/21/2017 Ureterolithiasis 05/07/2011 04/13/2012 Overview: Right side. Lumbar facet arthropathy 05/05/2011 013 DDD (degenerative disc disease), lumbar 05/05/19 12 04/13/2012 Lumbar spondylosis 05/05/2011 04/13/2012 Left bundle branch block 05/28/2010 014 Perirectal abscess 08/10/2009 05/28/2010 Esophageal reflux 11/10/2008 10/11/2014 Impaired fasting glucose 10/11/2008 013 Overview: Under 110; See labs 10/12 Nonspecific abnormal results of liver function s tudy 10/05/2008 04/28/2011 Overview: ? Due to high-moderate alcohol intake documented as of this encounter (statuses as of 10/16/2021) [facility] History of Past illness Narrative* Problem Noted Date Resolved Date Carotid artery stenosis 06/10/2019 06/11/19 20 Overview: History: history of left carotid stenosis, s/p carotid endarterectomy with bovine patch angioplasty on 06/09. Assessment: incision c/d/i, pain and blood pressure well controlled Plan: - discharge today Elevated prostate specific antigen (PSA) 017 10/21/2017 Osteoarthritis of lumbar spine 12/19/2015 0 04/20/2017 Chronic cough 10/04/2015 05/05/2016 Chronic rhinitis 10/04/2015 04/20/2017 Leg cramps 03/31/2014 10/11/2014 DDD (degenerative disc disease), lumbar 03/08/20 14 04/20/2017 Lens replaced by other means 07/05/2013 History of deep venous thrombosis 09/07/2012 05/17/2013 Rectal bleeding 06/30/2012 08/16/2012 PE (pulmonary embolism) 09/04/2011 04/13/19 13 Degeneration of lumbar or lumbosacral interverte bral disc 08/07/2011 04/13/2012 Lumbosacral spondylosis without myelopathy 08/0610/21/2017 Ureterolithiasis 05/07/2011 04/13/2012 Overview: Right side. Lumbar facet arthropathy 05/05/2011 013 DDD (degenerative disc disease), lumbar 05/05/19 12 04/13/2012 Lumbar spondylosis 05/05/2011 04/13/2012 Left bundle branch block 05/28/2010 014 Perirectal abscess 08/10/2009 05/28/2010 Esophageal reflux 11/10/2008 10/11/2014 Impaired fasting glucose 10/11/2008 013 Overview: Under 110; See labs 10/12 Nonspecific abnormal results of liver function s tudy 10/05/2008 04/28/2011 Overview: ? Due to high-moderate alcohol intake documented as of this encounter (statuses as of 10/25/2021) [facility] History of Past illness Narrative* Problem Noted Date Resolved Date Carotid artery stenosis 06/10/2019 06/11/19 20 Overview: History: history of left carotid stenosis, s/p carotid endarterectomy with bovine patch angioplasty on 06/09. Assessment: incision c/d/i, pain and blood pressure well controlled Plan: - discharge today Elevated prostate specific antigen (PSA) 017 10/21/2017 Osteoarthritis of lumbar spine 12/19/2015 0 04/20/2017 Chronic cough 10/04/2015 05/05/2016 Chronic rhinitis 10/04/2015 04/20/2017 Leg cramps 03/31/2014 10/11/2014 DDD (degenerative disc disease), lumbar 03/08/20 14 04/20/2017 Lens replaced by other means 07/05/2013 History of deep venous thrombosis 09/07/2012 05/17/2013 Rectal bleeding 06/30/2012 08/16/2012 PE (pulmonary embolism) 09/04/2011 04/13/19 13 Degeneration of lumbar or lumbosacral interverte bral disc 08/07/2011 04/13/2012 Lumbosacral spondylosis without myelopathy 08/0610/21/2017 Ureterolithiasis 05/07/2011 04/13/2012 Overview: Right side. Lumbar facet arthropathy 05/05/2011 013 DDD (degenerative disc disease), lumbar 05/05/19 12 04/13/2012 Lumbar spondylosis 05/05/2011 04/13/2012 Left bundle branch block 05/28/2010 014 Perirectal abscess 08/10/2009 05/28/2010 Esophageal reflux 11/10/2008 10/11/2014 Impaired fasting glucose 10/11/2008 013 Overview: Under 110; See labs 10/12 Nonspecific abnormal results of liver function s tudy 10/05/2008 04/28/2011 Overview: ? Due to high-moderate alcohol intake documented as of this encounter (statuses as of 11/02/2021) [facility] History of Past illness Narrative* Problem Noted Date Resolved Date Carotid artery stenosis 06/10/2019 06/11/19 20 Overview: History: history of left carotid stenosis, s/p carotid endarterectomy with bovine patch angioplasty on 06/09. Assessment: incision c/d/i, pain and blood pressure well controlled Plan: - discharge today Elevated prostate specific antigen (PSA) 017 10/21/2017 Osteoarthritis of lumbar spine 12/19/2015 0 04/20/2017 Chronic cough 10/04/2015 05/05/2016 Chronic rhinitis 10/04/2015 04/20/2017 Leg cramps 03/31/2014 10/11/2014 DDD (degenerative disc disease), lumbar 03/08/20 14 04/20/2017 Lens replaced by other means 07/05/2013 History of deep venous thrombosis 09/07/2012 05/17/2013 Rectal bleeding 06/30/2012 08/16/2012 PE (pulmonary embolism) 09/04/2011 04/13/19 13 Degeneration of lumbar or lumbosacral interverte bral disc 08/07/2011 04/13/2012 Lumbosacral spondylosis without myelopathy 08/0610/21/2017 Ureterolithiasis 05/07/2011 04/13/2012 Overview: Right side. Lumbar facet arthropathy 05/05/2011 013 DDD (degenerative disc disease), lumbar 05/05/19 12 04/13/2012 Lumbar spondylosis 05/05/2011 04/13/2012 Left bundle branch block 05/28/2010 014 Perirectal abscess 08/10/2009 05/28/2010 Esophageal reflux 11/10/2008 10/11/2014 Impaired fasting glucose 10/11/2008 013 Overview: Under 110; See labs 10/12 Nonspecific abnormal results of liver function s tudy 10/05/2008 04/28/2011 Overview: ? Due to high-moderate alcohol intake documented as of this encounter (statuses as of 11/12/2021) [facility] correction (current) use of anticoagulants- Primary Long-term (current) use of anticoagulants 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) Other pulmonary embolism and infarction Encounter for screening for COVID-19 [facility] Diagnosis Suppurative otitis media of right ear, unspecified chronicity- Primary [facility]* Diagnosis correction (current) use of anticoagulants- Primary Long-term (current) use of anticoagulants 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) Other pulmonary embolism and infarction [facility]* Diagnosis correction (current) use of anticoagulants- Primary Long-term (current) use of anticoagulants 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) Other pulmonary embolism and infarction [facility] Diagnosis Mixed hyperlipidemia [facility] Diagnosis Chronic low back pain without sciatica, unspecified back pain laterality [facility] 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)- Primary Other pulmonary embolism and infarction History of left-sided carotid endarterectomy Mixed hyperlipidemia Primary hypertension Unspecified essential hypertension PAD (peripheral artery disease) (HCC) Peripheral vascular disease, unspecified [facility] Diagnosis Eustachian tube dysfunction, right- Primary Primary hypertension Unspecified essential hypertension 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) Other pulmonary embolism and infarction [facility] Diagnosis correction (current) use of anticoagulants- Primary Long-term (current) use of anticoagulants 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) Other pulmonary embolism and infarction [facility] Insomnia, unspecified type [facility]* Diagnosis Pain in gums- Primary Unspecified gingival and periodontal disease Periodontal disease Unspecified gingival and periodontal disease Chronic low back pain without sciatica, unspecified back pain laterality [facility] noteNo assessment information availableWC[facility] Work Phone: Evaluation note* Diagnosis Essential hypertension Unspecified essential hypertension [facility] 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 Long-term (current) use of anticoagulants 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) Other pulmonary embolism and infarction [facility] Diagnosis Fall, subsequent encounter- Primary Chronic low back pain without sciatica, unspecified back pain laterality Closed head injury, subsequent encounter Neck pain on right side Cervicalgia 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) Other pulmonary embolism and infarction [facility]* Diagnosis correction (current) use of anticoagulants- Primary Long-term (current) use of anticoagulants 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) Other pulmonary embolism and infarction [facility] Diagnosis Personal history of colonic polyps- Primary [facility]* Diagnosis Primary hypertension- Primary Unspecified essential hypertension 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 Long-term (current) use of anticoagulants Mixed hyperlipidemia Screening for prostate cancer Special screening for malignant neoplasm of prostate Chronic low back pain without sciatica, unspecified back pain laterality [facility]* Diagnosis 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) Other pulmonary embolism and infarction [facility]* Diagnosis Mixed hyperlipidemia [facility] Diagnosis Macular hole of left eye- Primary Macular cyst, hole, or pseudohole of retina [facility]* Diagnosis Chronic low back pain without sciatica, unspecified back pain laterality [facility]* Diagnosis Stenosis of left carotid artery- Primary Occlusion and stenosis of carotid artery without mention of cerebral infarction [facility]* 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 Long-term (current) use of anticoagulants 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) Other pulmonary embolism and infarction [facility] Diagnosis Primary hypertension- Primary Unspecified essential hypertension 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 Long-term (current) use of anticoagulants 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) Other pulmonary embolism and infarction Chronic low back pain without sciatica, unspecified back pain laterality [facility]* Diagnosis correction (current) use of anticoagulants- Primary Long-term (current) use of anticoagulants 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) Other pulmonary embolism and infarction [facility] Diagnosis 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)- Primary Other pulmonary embolism and infarction [facility]* Diagnosis Pain, dental Unspecified disorder of the teeth and supporting structures Insomnia, unspecified type [facility]* Diagnosis Onset Date Resolution Status Hx of adenomatous colonic polyps acute [facility] Work Phone: Evaluation note* Diagnosis Essential hypertension Unspecified essential hypertension [facility]* Diagnosis Primary hypertension Unspecified essential hypertension [facility] Diagnosis 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)- Primary Other pulmonary embolism and infarction Mixed hyperlipidemia Primary hypertension Unspecified essential hypertension [facility]* Diagnosis Pain, dental Unspecified disorder of the teeth and supporting structures [facility] Diagnosis Medicare annual wellness visit, subsequent- Primary Routine general medical examination at a health care facility PAD (peripheral artery disease) (HCC) Peripheral vascular disease, unspecified Chronic low back pain without sciatica, unspecified back pain laterality Primary hypertension Unspecified essential hypertension Mixed hyperlipidemia 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) Other pulmonary embolism and infarction Impaired fasting glucose [facility]* Diagnosis 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)- Primary Other pulmonary embolism and infarction History of left-sided carotid endarterectomy Mixed hyperlipidemia Primary hypertension Unspecified essential hypertension PAD (peripheral artery disease) (HCC) Peripheral vascular disease, unspecified Anticoagulation management encounter Encounter for therapeutic drug monitoring [facility] Diagnosis Chronic low back pain without sciatica, unspecified back pain laterality- Primary Primary hypertension Unspecified essential hypertension Impaired fasting glucose [facility]* Diagnosis correction (current) use of anticoagulants- Primary Long-term (current) use of anticoagulants 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) Other pulmonary embolism and infarction [facility]* Diagnosis Insomnia, unspecified type [facility] Diagnosis Chronic low back pain without sciatica, unspecified back pain laterality- Primary Spinal stenosis of lumbar region, unspecified whether neurogenic claudication present [facility]* 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 Long-term (current) use of anticoagulants 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) Other pulmonary embolism and infarction [facility]* Diagnosis Spinal stenosis, lumbar region with neurogenic claudication- Primary [facility]* Diagnosis Chronic low back pain without sciatica, unspecified back pain laterality [facility]* Diagnosis correction (current) use of anticoagulants- Primary Long-term (current) use of anticoagulants 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) Other pulmonary embolism and infarction [facility]* Diagnosis 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)- Primary Other pulmonary embolism and infarction correction (current) use of anticoagulants Long-term (current) use of anticoagulants [facility] Diagnosis 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) Other pulmonary embolism and infarction [facility] Diagnosis 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) Other pulmonary embolism and infarction [facility] Diagnosis Chronic low back pain without sciatica, unspecified back pain laterality Spinal stenosis of lumbar region, unspecified whether neurogenic claudication present [facility]* Diagnosis Radiculopathy, lumbar region- Primary Thoracic or lumbosacral neuritis or radiculitis, unspecified [facility]* Diagnosis Chronic low back pain without sciatica, unspecified back pain laterality [facility]* Diagnosis Radiculopathy, lumbar region- Primary Thoracic or lumbosacral neuritis or radiculitis, unspecified Radiculopathy, lumbar region Thoracic or lumbosacral neuritis or radiculitis, unspecified [facility]* Diagnosis Chronic low back pain without sciatica, unspecified back pain laterality- Primary Primary hypertension Unspecified essential hypertension Kidney insufficiency Unspecified disorder of kidney and ureter Impaired fasting glucose Radiculopathy, lumbar region Thoracic or lumbosacral neuritis or radiculitis, unspecified [facility]* Diagnosis correction (current) use of anticoagulants- Primary Long-term (current) use of anticoagulants 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) Other pulmonary embolism and infarction Radiculopathy, lumbar region Thoracic or lumbosacral neuritis or radiculitis, unspecified [facility]* Diagnosis Macular hole of left eye- Primary Macular cyst, hole, or pseudohole of retina Posterior vitreous detachment of right eye Vitreous degeneration Radiculopathy, lumbar region Thoracic or lumbosacral neuritis or radiculitis, unspecified [facility]* Diagnosis Insomnia, unspecified type Radiculopathy, lumbar region Thoracic or lumbosacral neuritis or radiculitis, unspecified [facility]* Diagnosis Lumbar spondylosis- Primary Lumbosacral spondylosis without myelopathy Chronic low back pain without sciatica, unspecified back pain laterality Hereditary and idiopathic peripheral neuropathy Unspecified hereditary and idiopathic peripheral neuropathy Spinal stenosis of lumbar region, unspecified whether neurogenic claudication present Radiculopathy, lumbar region Thoracic or lumbosacral neuritis or radiculitis, unspecified [facility]* Diagnosis Gastroesophageal reflux disease without esophagitis- Primary Esophageal reflux Acute gastritis without hemorrhage, unspecified gastritis type [facility]* Diagnosis correction (current) use of anticoagulants- Primary Long-term (current) use of anticoagulants 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) Other pulmonary embolism and infarction [facility] 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 Long-term (current) use of anticoagulants 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) Other pulmonary embolism and infarction [facility]* Diagnosis Spinal stenosis of lumbar region, unspecified whether neurogenic claudication present- Primary Lumbar spondylosis Lumbosacral spondylosis without myelopathy [facility]* Diagnosis Mixed hyperlipidemia- Primary 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) Other pulmonary embolism and infarction 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 Long-term (current) use of anticoagulants Acute gastritis without hemorrhage, unspecified gastritis type History of left-sided carotid endarterectomy Spinal stenosis of lumbar region, unspecified whether neurogenic claudication present Primary hypertension Unspecified essential hypertension documented in this encounter [facility]* Diagnosis 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) Other pulmonary embolism and infarction [facility] Diagnosis Primary hypertension Unspecified essential hypertension [facility] Diagnosis Acute gastritis without hemorrhage, unspecified gastritis type [facility] Diagnosis Encounter for therapeutic drug monitoring- Primary Mixed hyperlipidemia Impaired fasting glucose Vitamin D deficiency Unspecified vitamin D deficiency [facility] Diagnosis Acute gastritis without hemorrhage, unspecified gastritis type- Primary Chronic low back pain without sciatica, unspecified back pain laterality [facility] Diagnosis Impaired fasting glucose- Primary [facility]* Diagnosis Insomnia, unspecified type- Primary [facility]* 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 Long-term (current) use of anticoagulants 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) Other pulmonary embolism and infarction [facility] Diagnosis 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)- Primary Other pulmonary embolism and infarction [facility]* Diagnosis Insomnia, unspecified type [facility]* Diagnosis Chronic low back pain without sciatica, unspecified back pain laterality documented in this encounter [facility]* Diagnosis Acute bilateral low back pain without sciatica- Primary Lumbar pain Lumbago Fall, subsequent encounter 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) Other pulmonary embolism and infarction [facility] Diagnosis Chronic low back pain without sciatica, unspecified back pain laterality [facility]* Diagnosis correction (current) use of anticoagulants- Primary Long-term (current) use of anticoagulants 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) Other pulmonary embolism and infarction [facility]* Diagnosis Chronic low back pain without sciatica, unspecified back pain laterality [facility]* Diagnosis Lumbar pain Lumbago Acute bilateral low back pain without sciatica Fall, subsequent [facility] Diagnosis Compression fracture of L1 vertebra with routine healing, subsequent encounter- Primary [facility] Diagnosis Compression fracture of L1 vertebra, initial encounter (HCC)- Primary [facility] Diagnosis Compression fracture of L1 vertebra with routine healing, subsequent encounter- Primary Chronic low back pain without sciatica, unspecified back pain laterality [facility]* Diagnosis Chronic low back pain without sciatica, unspecified back pain laterality [facility]* Diagnosis Stenosis of left carotid artery- Primary Occlusion and stenosis of carotid artery without mention of cerebral infarction PAD (peripheral artery disease) (HCC) Peripheral vascular disease, unspecified Screening for ischemic heart disease- Primary [facility]* Diagnosis correction (current) use of anticoagulants- Primary Long-term (current) use of anticoagulants 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) Other pulmonary embolism and infarction Screening for ischemic heart disease- Primary [facility] Diagnosis Screening for ischemic heart disease- Primary Primary hypertension Unspecified essential hypertension Mixed hyperlipidemia History of left-sided carotid endarterectomy 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) Other pulmonary embolism and infarction PAD (peripheral artery disease) (HCC) Peripheral vascular disease, unspecified Bilateral carotid artery stenosis Occlusion and stenosis of carotid artery without mention of cerebral infarction [facility] Diagnosis Compression fracture of L1 vertebra with routine healing, subsequent encounter- Primary Chronic low back pain without sciatica, unspecified back pain laterality Sciatic leg pain [facility]* Diagnosis Lumbar pain Lumbago Acute bilateral low back pain without sciatica Fall, subsequent encounter [facility] 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 Long-term (current) use of anticoagulants 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) Other pulmonary embolism and infarction [facility] Diagnosis Compression fracture of L1 vertebra with routine healing, subsequent encounter- Primary Chronic low back pain without sciatica, unspecified back pain laterality [facility]* Diagnosis Acute bilateral low back pain with bilateral sciatica- Primary Chronic low back pain without sciatica, unspecified back pain laterality Compression fracture of L1 vertebra with routine healing, subsequent encounter [facility]* Diagnosis Acute bilateral low back pain with bilateral sciatica Compression fracture of L1 vertebra with routine healing, subsequent encounter Chronic low back pain without sciatica, unspecified back pain laterality [facility]* Diagnosis Chronic low back pain without sciatica, unspecified back pain laterality Compression fracture of L1 vertebra with routine healing, subsequent encounter Sciatic leg pain [facility]* Diagnosis Acute bilateral low back pain with bilateral sciatica Compression fracture of L1 vertebra with routine healing, subsequent encounter Chronic low back pain without sciatica, unspecified back pain laterality [facility] 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 Long-term (current) use of anticoagulants 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) Other pulmonary embolism and infarction [facility] Diagnosis Compression fracture of L1 vertebra with routine healing, subsequent encounter- Primary Chronic bilateral low back pain with bilateral sciatica BPH with obstruction/lower urinary tract symptoms Hypertrophy of prostate with urinary obstruction and other lower urinary tract symptoms (LUTS) [facility]* Diagnosis Acute bilateral low back pain with bilateral sciatica Compression fracture of L1 vertebra with routine healing, subsequent encounter Chronic low back pain without sciatica, unspecified back pain laterality [facility]* Diagnosis Acute bilateral low back pain with bilateral sciatica Compression fracture of L1 vertebra with routine healing, subsequent encounter Chronic low back pain without sciatica, unspecified back pain laterality [facility]* Diagnosis Acute gastritis without hemorrhage, unspecified gastritis type [facility]* Diagnosis Compression fracture of L1 vertebra with routine healing, subsequent encounter- Primary Chronic low back pain without sciatica, unspecified back pain laterality Acute bilateral low back pain with bilateral sciatica Urinary dysfunction Other abnormality of urination Primary hypertension Unspecified essential hypertension [facility] 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 Long-term (current) use of anticoagulants 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) Other pulmonary embolism and infarction [facility]* Diagnosis Acute bilateral low back pain with bilateral sciatica Compression fracture of L1 vertebra with routine healing, subsequent encounter Chronic low back pain without sciatica, unspecified back pain laterality [facility]* Diagnosis Benign prostatic hyperplasia with nocturia- Primary [facility]* Diagnosis Stenosis of left carotid artery- Primary Occlusion and stenosis of carotid artery without mention of cerebral infarction PAD (peripheral artery disease) (HCC) Peripheral vascular disease, unspecified [facility]* Diagnosis Acute bilateral low back pain with bilateral sciatica Compression fracture of L1 vertebra with routine healing, subsequent encounter Chronic low back pain without sciatica, unspecified back pain laterality [facility]* Diagnosis correction (current) use of anticoagulants- Primary Long-term (current) use of anticoagulants 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) Other pulmonary embolism and infarction [facility]* Diagnosis Chronic low back pain without sciatica, unspecified back pain laterality- Primary Compression fracture of L1 vertebra with routine healing, subsequent encounter Primary hypertension Unspecified essential hypertension SOB (shortness of breath) Shortness of breath History of smoking Personal history of tobacco use, presenting hazards to health [facility] with obstruction/lower urinary tract symptoms Hypertrophy of prostate with urinary obstruction and other lower urinary tract symptoms (LUTS) SOB (shortness of breath) Shortness of breath [facility]* Diagnosis Compression fracture of L1 vertebra with routine healing, subsequent encounter Chronic low back pain without sciatica, unspecified back pain laterality [facility]* Diagnosis correction (current) use of anticoagulants- Primary Long-term (current) use of anticoagulants 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) Other pulmonary embolism and infarction [facility]* Diagnosis Acute bilateral low back pain with bilateral sciatica Compression fracture of L1 vertebra with routine healing, subsequent encounter Chronic low back pain without sciatica, unspecified back pain laterality [facility]* Diagnosis Chronic bilateral low back pain with bilateral sciatica- Primary Compression fracture of L1 vertebra with routine healing, subsequent encounter Mixed hyperlipidemia Primary hypertension Unspecified essential hypertension Kidney insufficiency Unspecified disorder of kidney and ureter Impaired fasting glucose correction (current) use of anticoagulants Long-term (current) use of anticoagulants 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) Other pulmonary embolism and infarction Vitamin D deficiency Unspecified vitamin D deficiency Encounter for therapeutic drug monitoring [facility] Diagnosis Compression fracture of L1 vertebra with routine healing, subsequent encounter Chronic bilateral low back pain with bilateral sciatica [facility]* Diagnosis correction (current) use of anticoagulants- Primary Long-term (current) use of anticoagulants 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) Other pulmonary embolism and infarction [facility]* Diagnosis Compression fracture of L1 vertebra with routine healing, subsequent encounter Chronic bilateral low back pain with bilateral sciatica [facility]* Diagnosis correction (current) use of anticoagulants- Primary Long-term (current) use of anticoagulants 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) Other pulmonary embolism and infarction [facility]* Diagnosis correction (current) use of anticoagulants- Primary Long-term (current) use of anticoagulants 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) Other pulmonary embolism and infarction [facility]* Diagnosis Chronic low back pain without sciatica, unspecified back pain laterality- Primary [facility]* Diagnosis Benign prostatic hyperplasia with nocturia- Primary Urgency of urination [facility]* Diagnosis Compression fracture of L1 vertebra with routine healing, subsequent encounter Chronic bilateral low back pain with bilateral sciatica [facility]* Diagnosis Insomnia, unspecified type [facility]* Diagnosis Primary hypertension- Primary Unspecified essential hypertension Pain, dental Unspecified disorder of the teeth and supporting structures Compression fracture of L1 vertebra with routine healing, subsequent encounter Chronic low back pain without sciatica, unspecified back pain laterality [facility]* Diagnosis SOB (shortness of breath) Shortness of breath [facility]* Diagnosis Other fatigue- Primary Side effect of medication SOB (shortness of breath) Shortness of breath Screening for depression [facility] Diagnosis Primary hypertension- Primary Unspecified essential hypertension [facility]* Diagnosis Primary hypertension- Primary Unspecified essential hypertension Compression fracture of L1 vertebra with routine healing, subsequent encounter Chronic bilateral low back pain with bilateral sciatica Other fatigue SOB (shortness of breath) Shortness of breath [facility]* Diagnosis Primary hypertension- Primary Unspecified essential hypertension [facility] Diagnosis Neck pain- Primary Cervicalgia [facility]* Diagnosis Neck pain Cervicalgia [facility] Diagnosis Primary hypertension- Primary Unspecified essential hypertension Dizziness Dizziness and giddiness Chronic low back pain without sciatica, unspecified back pain laterality Neck pain Cervicalgia 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) Other pulmonary embolism and infarction [facility]* Diagnosis 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) Other pulmonary embolism and infarction Pain, dental Unspecified disorder of the teeth and supporting structures Compression fracture of L1 vertebra with routine healing, subsequent encounter Chronic low back pain without sciatica, unspecified back pain laterality Primary hypertension Unspecified essential hypertension [facility]* Diagnosis 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) Other pulmonary embolism and infarction [facility]* Diagnosis Primary hypertension Unspecified essential hypertension Dizziness Dizziness and giddiness [facility]* Diagnosis Insomnia, unspecified type [facility]* Diagnosis 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)- Primary Other pulmonary embolism and infarction [facility]* Diagnosis Side effect of medication- Primary [facility]* Diagnosis Shortness of breath- Primary Chronic low back pain without sciatica, unspecified back pain laterality Neck pain Cervicalgia [facility]* Diagnosis Onychomycosis- Primary Dermatophytosis of nail Pain in toe of left foot Pain in limb Pain in toe of right foot Pain in limb PAD (peripheral artery disease) ([facility]) Peripheral vascular disease, unspecified Hammer toe, unspecified laterality [facility]* Diagnosis PAD (peripheral artery disease) ([facility])- Primary Peripheral vascular disease, unspecified Stenosis of left carotid artery Occlusion and stenosis of carotid artery without mention of cerebral infarction [facility]* Diagnosis Insomnia, unspecified type [facility]* Diagnosis Shortness of breath- Primary Primary hypertension Unspecified essential hypertension Chronic low back pain without sciatica, unspecified back pain laterality Bilateral carotid artery stenosis Occlusion and stenosis of carotid artery without mention of cerebral infarction Vision abnormalities Unspecified visual disturbance [facility]* Diagnosis Compression fracture of L1 vertebra with routine healing, subsequent encounter- Primary Chronic bilateral low back pain with bilateral sciatica Lumbar pain Lumbago [facility]* Diagnosis Primary hypertension Unspecified essential hypertension [facility] Diagnosis Shortness of breath [facility] 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 Long-term (current) use of anticoagulants 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) Other pulmonary embolism and infarction [facility] Diagnosis Shortness of breath [facility] Diagnosis Shortness of breath [facility] Diagnosis Shortness of breath- Primary Primary hypertension Unspecified essential hypertension 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) Other pulmonary embolism and infarction Chronic low back pain without sciatica, unspecified back pain laterality Neck pain Cervicalgia [facility]* Diagnosis Chronic low back pain without sciatica, unspecified back pain laterality- Primary [facility]* Diagnosis Shortness of breath- Primary [facility]* Diagnosis Shortness of breath- Primary [facility] Diagnosis Shortness of breath- Primary MCI (mild cognitive impairment) Mild cognitive impairment, so stated [facility]* Diagnosis PAD (peripheral artery disease)- Primary Peripheral vascular disease, unspecified Bilateral carotid artery stenosis Occlusion and stenosis of carotid artery without mention of cerebral infarction Primary hypertension Unspecified essential hypertension Mixed hyperlipidemia History of left-sided carotid endarterectomy 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) Other pulmonary embolism and infarction [facility]* Diagnosis Chronic low back pain without sciatica, unspecified back pain laterality- Primary [facility]* Diagnosis Macular hole of left eye- Primary Macular cyst, hole, or pseudohole of retina Posterior vitreous detachment of right eye Vitreous degeneration [facility]* Diagnosis Medicare annual wellness visit, subsequent- Primary Routine general medical examination at a health care facility Ulcer of toe of left foot, unspecified ulcer stage (HCC) Shortness of breath MCI (mild cognitive impairment) Mild cognitive impairment, so stated Primary hypertension Unspecified essential hypertension [facility]* Diagnosis Primary hypertension Unspecified essential hypertension Acute gastritis without hemorrhage, unspecified gastritis type 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) Other pulmonary embolism and infarction documented in this encounter [facility]* Diagnosis Chronic low back pain without sciatica, unspecified back pain laterality Neck pain Cervicalgia documented in this encounter [facility] note* Diagnosis Insomnia, unspecified type documented in this encounter [facility] note* Diagnosis 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) Other pulmonary embolism and infarction Ulcer of toe of left foot, unspecified ulcer stage (HCC) documented in this encounter [facility] note* Diagnosis Encounter for therapeutic drug monitoring- Primary IFG (impaired fasting glucose) Impaired fasting glucose documented in this encounter [facility] note* 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 Long-term (current) use of anticoagulants 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) Other pulmonary embolism and infarction documented in this encounter [facility] note* Diagnosis Primary hypertension Unspecified essential hypertension documented in this encounter [facility] note* Diagnosis SOB (shortness of breath)- Primary Shortness of breath Mild persistent asthma without complication (HCC) Unspecified asthma History of pulmonary embolism Personal history of pulmonary embolism documented in this encounter [facility] note* Diagnosis SOB (shortness of breath) Shortness of breath [facility] Diagnosis Primary hypertension Unspecified essential hypertension documented in this encounter [facility] note* Diagnosis SOB (shortness of breath)- Primary Shortness of breath Chronic low back pain without sciatica, unspecified back pain laterality Compression fracture of L1 vertebra, sequela 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) Other pulmonary embolism and infarction correction (current) use of anticoagulants Long-term (current) use of anticoagulants IFG (impaired fasting glucose) Impaired fasting glucose Primary hypertension Unspecified essential hypertension Vitamin D deficiency Unspecified vitamin D deficiency Insomnia, unspecified type documented in this encounter [facility] for referral (narrative)* Outpatient Procedure (Routine) - Pending Review Specialty Diagnoses / Procedures Referred By Roula tolentino [facility] Diagnoses PAD (peripheral artery disease) (HCC) Procedures [facility] NON-INVASIVE PHYSIOLOGIC STUDY EXTREMITY 3 Edgar Rivas, DO [address] [place] [address] [facility] [address] [address] Referral ID Status Reason Start Date Expiration Date Visits Requested Visits Authorized [id number] Pending Review Auto-Generat ed Referral 05/26/2023 05/25/2024 1 1 * Outpatient Procedure (Routine) - Pending Review Specialty Diagnoses / Procedures Referred By Contac t Referred To Contact [facility] Diagnoses Stenosis of left carotid artery Procedures US CAROTID ARTERIES ADIS VAS LAB DUPLEX SCAN EXTRACRANIAL ART COMPL BI STUDY Edgar Loaiza DO [address] [place] [address] [address] Referral ID Status Reason Start Date Expiration Date Visits Requested Visits Authorized [id number] Pending Review Auto-Generat ed Referral 05/26/2023 05/25/2024 1 1 [facility] for referral (narrative)* Outpatient Procedure (Routine) - Pending Review Specialty Diagnoses / Procedures Referred By Contac t Referred To Contact [facility] Diagnoses Screening for ischemic heart disease Procedures ECG COMPLETE ECG ROUTINE ECG W/LEAST 12 LDS W/I&R Sunny Mercedes MD [address] [place] [address] [facility] [address] [address] Referral ID Status Reason Start Date Expiration Date Visits Requested Visits Authorized [id number] Pending Review Auto-Generat ed Referral 06/08/2023 06/07/2024 [facility] Outpatient Procedure (Routine) - Pending Review Specialty Diagnoses / Procedures Referred By Contac t Referred To Contact [facility] Diagnoses Primary hypertension Procedures ECHO ECHO TTHRC R-T 2D W/WOM-MODE COMPL SPEC&COLR D Zeny Lam APRN.DELIVERY CLERK [address] [place] [address] [facility] [place] [address] [place] [address] Referral ID Status Reason Start Date Expiration Date Visits Requested Visits Authorized [id number] Pending Review Auto-Generat ed Referral 07/27/2023 07/26/2024 1 1 * Medication Prior Authorization - Closed Specialty Diagnoses / Procedures Referred By Contac t Referred To Contact Diagnoses Acute bilateral low back pain with bilateral sciatica Compression fracture of L1 vertebra with routine healing, subsequent encounter Chronic low back pain without sciatica, unspecified back pain laterality Zeny Lam APRN.CNP [address] [place] [address] Referral ID Status Reason Start Date Expiration Date Visits Re quested Visits Authorized [id number] Closed 1 1 [facility] for referral (narrative)* Outpatient Procedure (Routine) - Pending Review Specialty Diagnoses / Procedures Referred By Contac t Referred To Contact [facility] Diagnoses PAD (peripheral artery disease) (HCC) Procedures PVR LEG ADIS VAS LAB NON-INVASIVE PHYSIOLOGIC STUDY EXTREMITY 3 Edgar Rivas DO [address] [place] [address] [facility] [address] [address] Referral ID Status Reason Start Date Expiration Date Visits Requested Visits Authorized [id number] Pending Review Auto-Generat ed Referral 08/12/2023 08/11/2024 1 1 * Outpatient Procedure (Routine) - Pending Review Specialty Diagnoses / Procedures Referred By Contac t Referred To Contact [facility] Diagnoses Stenosis of left carotid artery Procedures US CAROTID ARTERIES ADIS VAS LAB DUPLEX SCAN EXTRACRANIAL ART COMPL BI STUDY Edgar Loaiza DO [address] [place] [address] [address] Referral ID Status Reason Start Date Expiration Date Visits Requested Visits Authorized [id number] Pending Review Auto-Generat ed Referral 08/12/2023 08/11/2024 1 1 [facility] for referral (narrative)* Outpatient Procedure (Routine) - New Request Specialty Diagnoses / Procedures Referred By Contac t Referred To Contact [facility] Diagnoses SOB (shortness of breath) Procedures ECG COMPLETE ECG ROUTINE ECG W/LEAST 12 LDS W/I&R Zeny Lam APRN.DELIVERY CLERK [address] [place] [address] [address] Referral ID Status Reason Start Date Expiration Date Visits Requested Visits Authorized [id number] New Request Auto-Generat ed Referral 01/06/2024 01/05/2025 1 1 [facility] for referral (narrative)* Diagnostic Procedure Only (Routine) - Closed Specialty Diagnoses / Procedures Referred By Roula t Referred To Contact XR IMAGING Diagnoses Neck pain Procedures XR CERV OTHER 4V AP/LAT/OBL RADEX SPINE CERVICAL 4 OR 5 VIEWS Zeny Lam APRN.DELIVERY CLERK [address] [place] [address] Xr Imaging [facility] Referral ID Status Reason Start Date Expiration Date V isits Requested Visits Authorized [id number] Closed Auto-Generate d Referral 02/01/2024 03/02/2025 1 1 [facility] for visit Narrative* Diagnostic Procedure Only (Routine) - Closed Specialty Diagnoses / Procedures Referred By Contac t Referred To Contact Radiology / [facility] Diagnoses ML Procedures XR CHEST Zeny Lam APRN.DELIVERY CLERK [address] [place] [address] Radio General [facility] [address] [place] [address] Referral ID Status Reason Start Date Expiration Date Visits Re quested Visits Authorized [id number] Closed 08/25/2023 08/25/2023 1 1 [facility] for visit Narrative* Diagnostic Procedure Only (Routine) - Closed Specialty Diagnoses / Procedures Referred By Contac t Referred To Contact XR IMAGING Diagnoses Neck pain Procedures XR CERV OTHER 4V AP/LAT/OBL RADEX SPINE CERVICAL 4 OR 5 VIEWS Zeny Lam, ERIK.DELIVERY CLERK [address] [place] [address] Xr Imaging [place] [address] Referral ID Status Reason Start Date Expiration Date V isits Requested Visits Authorized [id number] Closed Auto-Generate d Referral 02/01/2024 03/02/2025 1 1 [facility] for visit Narrative* Diagnostic Procedure Only (Routine) - Closed Specialty Diagnoses / Procedures Referred By Contac t Referred To Contact [facility]LECULAR [facility]AL [facility] Diagnoses Shortness of breath Procedures NM CARDIAC PERF STRESS/PHARM MYOCARDIAL SPECT MULTIPLE STUDIES Teri Gruber, ERIK.DELIVERY CLERK [address] [place] [address] Phone: tel: fax: Molecular Imaging [address] [place] [address] Phone: tel: Referral ID Status Reason Start Date Expiration Date V isits Requested Visits Authorized [id number] Closed Auto-Generate d Referral 05/17/2024 06/16/2025 1 1 [facility] for visit Narrative* Consult, Test, Treat (Routine) - Authorized Specialty Diagnoses / Procedures Referred By Contac t Referred To Contact [facility] Diagnoses Compression fracture of L1 vertebra with routine healing, subsequent encounter Chronic bilateral low back pain with bilateral sciatica Lumbar pain Procedures CONSULT FOR ACUPUNCTURE ACUPUNCTURE 1/> NDLS W/ELEC STIMJ 1ST 15 MIN ACUPUNCTURE 1/> NDLS W/ESTIM EACH ADDL 15 MIN Zeny Lam, AUTISTIC TEACHER.DELIVERY CLERK [address] [place] [address] Phone: tel: fax: [facility] [address] [place] [address] Referral ID Status Reason Start Date Expiration Date Visits Requested Visits Authorized [id number] Authorized PCP Requested Referral Patient Cleared Patient agrees to sign AFR (ERIC Anders or PAN ROBBINS) 06/04/2024 04/05/2025 12 12 [facility] Advance Directives No Advanced Directives Records FoundDocuments on File Type Date Recorded Patient Cytogenetic Technologist Expl anation Advance Directive(s) 03/13/2021 11:31 AM Advance Directive(s) 05/10/2020 7:33 AM Advance Directive(s) 05/01/2020 2:41 PM Advance Directive(s) 06/06/2019 5:02 PM Advance Directive(s) 05/17/2019 11:49 AM Advance Directive(s) 01/14/2016 7:29 AM Documents on File Type Date Recorded Patient Cytogenetic Technologist Expl anation Advance Directive(s) 03/13/2021 11:31 AM Advance Directive(s) 05/10/2020 7:33 AM Advance Directive(s) 05/01/2020 2:41 PM Advance Directive(s) 06/06/2019 5:02 PM Advance Directive(s) 05/17/2019 11:49 AM Advance Directive(s) 01/14/2016 7:29 AM Advance Directive Response Recorded Date/ Time Advance Directives No May 08, 2014 12:48pm Living Will Yes September 28, 2021 1:39pm Power of Lean Process Deployment Consultant Yes September 28 1:39pm Name of Medical Power of Lean Process Deployment Consultant Twyla Freire September 28, 2021 1:39pm Documents on File Type Date Recorded Patient Cytogenetic Technologist Expl anation Advance Directive(s) 03/13/2021 11:31 AM Advance Directive Response Recorded Date/ Time Advance Directives No May 08, 2014 11:48am Living Will Yes March 20, 2 1:43pm Power of Lean Process Deployment Consultant Yes March 20, 2022 1:43pm Name of Medical Power of Lean Process Deployment Consultant LARISSA FREIRE March 20, 2022 1:43pm Documents on File Type Date Recorded Patient Cytogenetic Technologist Expl anation Advance Directive(s) 03/13/2021 11:31 AM Health Concerns Infection Onset Date Last Indicated Resolved Time COVID-19 Rule-Out 06/28/2021 07/03/2021 Reason for Referral Specialty Diagnoses / Procedures Referred By Contac t Referred To Contact Diagnoses Insomnia, unspecified type Franc Hills MD [address] [place] [address] Referral ID Status Reason Start Date Expiration Date V isits Requested Visits Authorized [id number] Pending Review 1 1 Specialty Diagnoses / Procedures Referred By Contac t Referred To Contact Diagnoses Chronic low back pain without sciatica, unspecified back pain laterality Spinal stenosis of lumbar region, unspecified whether neurogenic claudication present Procedures CONSULT TO SPINE SURGERY OFFICE/OUTPATIENT [facility] 60-74 MINUTES Franc Hills MD [address] [place] [address] Referral ID Status Reason Start Date Expiration Date Visits Requested Visits Authorized [id number] Pending Review PCP Requested Referral 09/24/2022 09/24/2023 1 1 Specialty Diagnoses / Procedures Referred By Contac t Referred To Contact Diagnoses Chronic low back pain without sciatica, unspecified back pain laterality Franc Hills MD [address] [place] [address] Referral ID Status Reason Start Date Expiration Date V isits Requested Visits Authorized [id number] Pending Review 1 1 Referral ID Status Reason Start Date Expiration Date Visits Re quested Visits Authorized [id number] Closed 1 1 Specialty Diagnoses / Procedures Referred By Contac t Referred To Contact General Surgery Diagnoses Acute gastritis without hemorrhage, unspecified gastritis type Procedures CONSULT TO GENERAL SURGERY OFFICE/OUTPATIENT [facility] 60-74 MINUTES Zeny Lam APRN.DELIVERY CLERK [address] [place] [address] Referral ID Status Reason Start Date Expiration Date Visits Requested Visits Authorized [id number] Pending Review PCP Requested Referral 3 02/23/2024 1 1 Specialty Diagnoses / Procedures Referred By Contac t Referred To Contact Diagnoses Chronic low back pain without sciatica, unspecified back pain laterality Zeny Lam APRN.DELIVERY CLERK [address] [place], [place] [address] Referral ID Status Reason Start Date Expiration Date Visits Re quested Visits Authorized [id number] Closed 1 1 Specialty Diagnoses / Procedures Referred By Contac t Referred To Contact MR IMAGING Diagnoses Lumbar pain Acute bilateral low back pain without sciatica Fall, subsequent encounter Procedures MRI LUMBAR SPINE WO IVCON MRI SPINAL CANAL LUMBAR W/O CONTRAST MATERIAL Zeny Lam APRN.DELIVERY CLERK [address] [place] [address] [place] [address] Referral ID Status Reason Start Date Expiration Date Visits Requested Visits Authorized [id number] Pending Review Auto-Generat ed Referral 05/18/2023 06/16/2024 1 1 Referral ID Status Reason Start Date Expiration Date Visits Re quested Visits Authorized [id number] Closed 1 1 Referral ID Status Reason Start Date Expiration Date V isits Requested Visits Authorized [id number] Closed Auto-Generate d Referral 05/29/2023 09/04/2023 1 1 Specialty Diagnoses / Procedures Referred By Contac t Referred To Contact [facility] [place] Diagnoses Compression fracture of L1 vertebra with routine healing, subsequent encounter Procedures CONSULT TO SPINE [facility]ICAL C[facility] OFFICE/OUTPATIENT [facility] MDM 60 MINUTES Zeny Lam APRN.DELIVERY CLERK [address] [place] [address] Referral ID Status Reason Start Date Expiration Date Visits Requested Visits Authorized [id number] Authorized PCP Requested Referral 05/29/2023 05/28/2024 1 1 Referral ID Status Reason Start Date Expiration Date Visits Re quested Visits Authorized [id number] Closed 1 1 Specialty Diagnoses / Procedures Referred By Contac t Referred To Contact [facility] Diagnoses Chronic low back pain without sciatica, unspecified back pain laterality Compression fracture of L1 vertebra with routine healing, subsequent encounter Sciatic leg pain Procedures CONSULT TO PHYSICAL THERAPY PHYSICAL THERAPY EVALUATION [facility] COM[facility] 45 MINS Zeny Lam APRN.DELIVERY CLERK [address] [place] [address] [facility] [place] [address] [place] [address] Referral ID Status Reason Start Date Expiration Date Visits Requested Visits Authorized [id number] Pending Review Auto-Generat ed Referral 06/15/2023 06/14/2024 1 1 Referral ID Status Reason Start Date Expiration Date Visits Re quested Visits Authorized [id number] Closed 1 1 Specialty Diagnoses / Procedures Referred By Contac t Referred To Contact Diagnoses Chronic low back pain without sciatica, unspecified back pain laterality Compression fracture of L1 vertebra with routine healing, subsequent encounter Zeny Lam APRN.DELIVERY CLERK [address] [place] [address] Referral ID Status Reason Start Date Expiration Date Visits Re quested Visits Authorized [id number] Closed 1 1 Specialty Diagnoses / Procedures Referred By Contac t Referred To Contact [facility] Diagnoses Acute bilateral low back pain with bilateral sciatica Compression fracture of L1 vertebra with routine healing, subsequent encounter Chronic low back pain without sciatica, unspecified back pain laterality Procedures CONSULT TO PHYSICAL THERAPY PHYSICAL THERAPY EVALUATION [facility] 45 MINS Zeny Lam APRN.DELIVERY CLERK [address] [place] [address] [facility] [place] [address] [place] [address] Referral ID Status Reason Start Date Expiration Date Visits Requested Visits Authorized [id number] Pending Review Auto-Generat ed Referral 06/29/2023 06/28/2024 1 1 Specialty Diagnoses / Procedures Referred By Contac t Referred To Contact Diagnoses Acute bilateral low back pain with bilateral sciatica Compression fracture of L1 vertebra with routine healing, subsequent encounter Chronic low back pain without sciatica, unspecified back pain laterality Procedures CONSULT TO [facility] NON-PHARMACOLOGIC PAIN MANAGEMENT OFFICE/OUTPATIENT [facility] 60 MINUTES Zeny Lam APRN.DELIVERY CLERK [facility] [place] [address] Referral ID Status Reason Start Date Expiration Date Visits Requested Visits Authorized [id number] Authorized PCP Requested Referral 06/29/2023 06/28/2024 1 1 Specialty Diagnoses / Procedures Referred By Contac t Referred To Contact [facility] [place] Diagnoses Acute bilateral low back pain with bilateral sciatica Compression fracture of L1 vertebra with routine healing, subsequent encounter Chronic low back pain without sciatica, unspecified back pain laterality Procedures CONSULT TO SPINE MEDICAL CENTER OFFICE/OUTPATIENT [facility] 60 MINUTES Zeny Lam APRN.DELIVERY CLERK [address] [place] [address] Referral ID Status Reason Start Date Expiration Date Visits Requested Visits Authorized [id number] Authorized PCP Requested Referral 06/29/2023 06/28/2024 1 1 Specialty Diagnoses / Procedures Referred By Contac t Referred To Contact Diagnoses Acute bilateral low back pain with bilateral sciatica Compression fracture of L1 vertebra with routine healing, subsequent encounter Chronic low back pain without sciatica, unspecified back pain laterality Zeny Lam APRN.DELIVERY CLERK [address] [place], [place] [address] Referral ID Status Reason Start Date Expiration Date Visits Re quested Visits Authorized [id number] Closed 1 1 Referral ID Status Reason Start Date Expiration Date Visits Re quested Visits Authorized [id number] Closed 1 1 Specialty Diagnoses / Procedures Referred By Contac t Referred To Contact Diagnoses Acute bilateral low back pain with bilateral sciatica Compression fracture of L1 vertebra with routine healing, subsequent encounter Chronic low back pain without sciatica, unspecified back pain laterality Franc Hills MD [address] [place] [address] Referral ID Status Reason Start Date Expiration Date Visits Re quested Visits Authorized [id number] Closed 1 1 Specialty Diagnoses / Procedures Referred By Contac t Referred To Contact Urology Diagnoses BPH with obstruction/lower urinary tract symptoms Procedures CONSULT TO UROLOGY OFFICE/OUTPATIENT [facility] 60 MINUTES Franc Hills MD [address] [place] [address] Referral ID Status Reason Start Date Expiration Date Visits Requested Visits Authorized [id number] Authorized PCP Requested Referral 07/18/2023 07/17/2024 1 1 Referral ID Status Reason Start Date Expiration Date Visits Re quested Visits Authorized [id number] Closed 1 1 Referral ID Status Reason Start Date Expiration Date Visits Re quested Visits Authorized [id number] Closed 1 1 Referral ID Status Reason Start Date Expiration Date Visits Re quested Visits Authorized [id number] Closed 1 1 Referral ID Status Reason Start Date Expiration Date Visits Re quested Visits Authorized [id number] Closed 1 1 Specialty Diagnoses / Procedures Referred By Contac t Referred To Contact [facility] Diagnoses Compression fracture of L1 vertebra with routine healing, subsequent encounter Chronic low back pain without sciatica, unspecified back pain laterality Procedures CONSULT TO PHYSICAL THERAPY PHYSICAL THERAPY EVALUATION [facility] 45 MINS Irene Moraes MD [address] [place] [address] [facility] [place] [address] [place] [address] Referral ID Status Reason Start Date Expiration Date Visits Requested Visits Authorized [id number] Pending Review Auto-Generat ed Referral 08/27/2023 08/26/2024 1 1 Specialty Diagnoses / Procedures Referred By Contac t Referred To Contact Diagnoses Compression fracture of L1 vertebra with routine healing, subsequent encounter Chronic low back pain without sciatica, unspecified back pain laterality Procedures CONSULT FOR ACUPUNCTURE ACUPUNCTURE 1/> NDLS W/ELEC STIMJ 1ST 15 MIN ACUP 1/> NDLS W/ELEC STIMJ EA 15 MIN W/RE-INSJ Irene Moraes MD [address] [place] [address] Referral ID Status Reason Start Date Expiration Date Visits Requested Visits Authorized [id number] Pending Review PCP Requested Referral 08/27/2023 11/25/2023 1 1 Specialty Diagnoses / Procedures Referred By Contac t Referred To Contact Diagnoses Pain, dental Compression fracture of L1 vertebra with routine healing, subsequent encounter Chronic low back pain without sciatica, unspecified back pain laterality Zeny Lam APRN.DELIVERY CLERK [address] [place] [address] Referral ID Status Reason Start Date Expiration Date Visits Re quested Visits Authorized [id number] Closed 1 1 Specialty Diagnoses / Procedures Referred By Contac t Referred To Contact Diagnoses Chronic low back pain without sciatica, unspecified back pain laterality Neck pain Zeny Lam APRN.DELIVERY CLERK [address] [place] [address] Referral ID Status Reason Start Date Expiration Date Visits Re quested Visits Authorized [id number] Closed 1 1 Specialty Diagnoses / Procedures Referred By Contac t Referred To Contact CT IMAGING Diagnoses Primary hypertension Dizziness Procedures CT BRAIN WO IVCON CT HEAD/BRAIN W/O CONTRAST MATERIAL Zeny Lam APRN.DELIVERY CLERK [address] [place] [address] [place] [address] Referral ID Status Reason Start Date Expiration Date Visits Requested Visits Authorized [id number] Authorized Auto-Generat ed Referral 03/16/2025 1 1 Referral ID Status Reason Start Date Expiration Date V isits Requested Visits Authorized [id number] Closed Auto-Generate d Referral 02/15/2024 03/16/2025 1 1 Chief Complaint and Reason for Visit Chief Complaint FALL Reason for Visit Hx of adenomatous co lonic polyps Family History No Family History Records Found Relationship Condition Age at Onset Recorded Date/T latasha father Coronary artery disease Unknown Myocardial infarction Unknown Medications Administered Section Active Administered Medications - up to 3 most recent administrations Medication Order MAR Action Action Date Dose Rate Site fluorescein-benoxinate 0.25-0.4 % 1 Drop (FLURESS) 1 Drop, BOTH EYES, DIRECTED, Starting on Thu12/10/21 at 0943, Until Thu12/10/21 at 2142, Administer for applanation tonometry. In the event of a Fluress shortage, administer 1 drop of [place]-Fluor into both eyes as directed for applanation tonometry., [facility] MED ORDERS Given 12/10/2021 9:43 AM EDT 1 Drop PHENYLephrine 2.5 % 1 Drop (AK-DILATE, STERLING-SYNEPHRINE) 1 Drop, BOTH EYES, DIRECTED, Starting on Thu12/10/21 at 0943, Until Thu12/10/21 at 2142, Administer for dilation PROTECT FROM LIGHT, [facility] MED ORDERS Given 12/10/2021 9:43 AM EDT 1 Drop tropicamide 1 % 1 Drop (MYDRIACYL) 1 Drop, BOTH EYES, DIRECTED, Starting on Thu12/10/21 at 0943, Until Thu12/10/21 at 2142, Administer for dilation, [facility] MED ORDERS Given 12/10/2021 9:44 AM EDT 1 Drop Active Administered Medications - up to 3 most recent administrations Medication Order MAR Action Action Date Dose Rate Site fluorescein-benoxinate 0.25-0.4 % 1 Drop (FLURESS) 1 Drop, BOTH EYES, DIRECTED, Starting on Thu12/09/22 at 1030, Until Thu12/09/22 at 2229, Administer for applanation tonometry. In the event of a Fluress shortage, administer 1 drop of [place]-Fluor into both eyes as directed for applanation tonometry., [facility] MED ORDERS Given 12/09/2022 10:30 AM EDT 1 Drop PHENYLephrine 2.5 % 1 Drop (AK-DILATE, STERLING-SYNEPHRINE) 1 Drop, BOTH EYES, DIRECTED, Starting on Thu12/09/22 at 1030, Until Thu12/09/22 at 2229, Administer for dilation PROTECT FROM LIGHT, [facility] MED ORDERS Given 12/09/2022 10:30 AM EDT 1 Drop proparacaine 0.5 % 1 Drop (ALCAINE) 1 Drop, BOTH EYES, DIRECTED, Starting on Thu12/09/22 at 1030, Until Thu12/09/22 at 2229, Administer for pneumo tonometry, tonopen tonometry, or pachymetry. In the event of a proparacaine shortage, administer 1 drop of tetracaine 0.5% ophthalmic drops into both eyes as directed for pneumo tonometry, tonopen tonometry, or pachymetry, [facility] MED ORDERS Given 12/09/2022 10:30 AM EDT 1 Drop tropicamide 1 % 1 Drop (MYDRIACYL) 1 Drop, BOTH EYES, DIRECTED, Starting on Thu12/09/22 at 1030, Until Thu12/09/22 at 2229, Administer for dilation, [facility] MED ORDERS Given 12/09/2022 10:30 AM EDT 1 Drop Summary Purpose Additional Source Comments Source Comments (unrecognize d section and content) In the event this informatio n is protected by the Federal Confidentiality of Alcohol and Drug Abuse Patient Records regulations: The Federal rules restrict any use of the information to criminally investigate or prosecute any alcohol or drug abuse patient.[facility] the event this information is protected by the Federal Confidentiality of Alcohol and Drug Abuse Patient Records regulations: The Federal rules restrict any use of the information to criminally investigate or prosecute any alcohol or drug abuse patient.[facility] Hospital[facility] the event this information is protected by the Federal Confidentiality of Alcohol and Drug Abuse Patient Records regulations: The Federal rules restrict any use of the information to criminally investigate or prosecute any alcohol or drug abuse patient.[facility] the event this information is protected by the Federal Confidentiality of Alcohol and Drug Abuse Patient Records regulations: The Federal rules restrict any use of the information to criminally investigate or prosecute any alcohol or drug abuse patient.[facility] HospitalIn the event this information is protected by the Federal Confidentiality of Alcohol and Drug Abuse Patient Records regulations: The Federal rules restrict any use of the information to criminally investigate or prosecute any alcohol or drug abuse patient.[facility] Hospital[facility] the event this information is protected by the Federal Confidentiality of Alcohol and Drug Abuse Patient Records regulations: The Federal rules restrict any use of the information to criminally investigate or prosecute any alcohol or drug abuse patient.[facility] HospitalIn the event this information is protected by the Federal Confidentiality of Alcohol and Drug Abuse Patient Records regulations: The Federal rules restrict any use of the information to criminally investigate or prosecute any alcohol or drug abuse patient.[facility] HospitalIn the event this information is protected by the Federal Confidentiality of Alcohol and Drug Abuse Patient Records regulations: The Federal rules restrict any use of the information to criminally investigate or prosecute any alcohol or drug abuse patient.[facility] HospitalIn the event this information is protected by the Federal Confidentiality of Alcohol and Drug Abuse Patient Records regulations: The Federal rules restrict any use of the information to criminally investigate or prosecute any alcohol or drug abuse patient.[facility] HospitalIn the event this information is protected by the Federal Confidentiality of Alcohol and Drug Abuse Patient Records regulations: The Federal rules restrict any use of the information to criminally investigate or prosecute any alcohol or drug abuse patient.[facility] HospitalIn the event this information is protected by the Federal Confidentiality of Alcohol and Drug Abuse Patient Records regulations: The Federal rules restrict any use of the information to criminally investigate or prosecute any alcohol or drug abuse patient.[facility] HospitalIn the event this information is protected by the Federal Confidentiality of Alcohol and Drug Abuse Patient Records regulations: The Federal rules restrict any use of the information to criminally investigate or prosecute any alcohol or drug abuse patient.[facility] HospitalIn the event this information is protected by the Federal Confidentiality of Alcohol and Drug Abuse Patient Records regulations: The Federal rules restrict any use of the information to criminally investigate or prosecute any alcohol or drug abuse patient.[facility] HospitalIn the event this information is protected by the Federal Confidentiality of Alcohol and Drug Abuse Patient Records regulations: The Federal rules restrict any use of the information to criminally investigate or prosecute any alcohol or drug abuse patient.[facility] HospitalIn the event this information is protected by the Federal Confidentiality of Alcohol and Drug Abuse Patient Records regulations: The Federal rules restrict any use of the information to criminally investigate or prosecute any alcohol or drug abuse patient.[facility] HospitalIn the event this information is protected by the Federal Confidentiality of Alcohol and Drug Abuse Patient Records regulations: The Federal rules restrict any use of the information to criminally investigate or prosecute any alcohol or drug abuse patient.[facility] HospitalIn the event this information is protected by the Federal Confidentiality of Alcohol and Drug Abuse Patient Records regulations: The Federal rules restrict any use of the information to criminally investigate or prosecute any alcohol or drug abuse patient.[facility] HospitalIn the event this information is protected by the Federal Confidentiality of Alcohol and Drug Abuse Patient Records regulations: The Federal rules restrict any use of the information to criminally investigate or prosecute any alcohol or drug abuse patient.[facility] HospitalIn the event this information is protected by the Federal Confidentiality of Alcohol and Drug Abuse Patient Records regulations: The Federal rules restrict any use of the information to criminally investigate or prosecute any alcohol or drug abuse patient.[facility] HospitalIn the event this information is protected by the Federal Confidentiality of Alcohol and Drug Abuse Patient Records regulations: The Federal rules restrict any use of the information to criminally investigate or prosecute any alcohol or drug abuse patient.[facility] HospitalIn the event this information is protected by the Federal Confidentiality of Alcohol and Drug Abuse Patient Records regulations: The Federal rules restrict any use of the information to criminally investigate or prosecute any alcohol or drug abuse patient.[facility] HospitalIn the event this information is protected by the Federal Confidentiality of Alcohol and Drug Abuse Patient Records regulations: The Federal rules restrict any use of the information to criminally investigate or prosecute any alcohol or drug abuse patient.[facility] HospitalIn the event this information is protected by the Federal Confidentiality of Alcohol and Drug Abuse Patient Records regulations: The Federal rules restrict any use of the information to criminally investigate or prosecute any alcohol or drug abuse patient.[facility] HospitalIn the event this information is protected by the Federal Confidentiality of Alcohol and Drug Abuse Patient Records regulations: The Federal rules restrict any use of the information to criminally investigate or prosecute any alcohol or drug abuse patient.[facility] HospitalIn the event this information is protected by the Federal Confidentiality of Alcohol and Drug Abuse Patient Records regulations: The Federal rules restrict any use of the information to criminally investigate or prosecute any alcohol or drug abuse patient.[facility] HospitalIn the event this information is protected by the Federal Confidentiality of Alcohol and Drug Abuse Patient Records regulations: The Federal rules restrict any use of the information to criminally investigate or prosecute any alcohol or drug abuse patient.[facility] HospitalIn the event this information is protected by the Federal Confidentiality of Alcohol and Drug Abuse Patient Records regulations: The Federal rules restrict any use of the information to criminally investigate or prosecute any alcohol or drug abuse patient.[facility] HospitalIn the event this information is protected by the Federal Confidentiality of Alcohol and Drug Abuse Patient Records regulations: The Federal rules restrict any use of the information to criminally investigate or prosecute any alcohol or drug abuse patient.[facility] HospitalIn the event this information is protected by the Federal Confidentiality of Alcohol and Drug Abuse Patient Records regulations: The Federal rules restrict any use of the information to criminally investigate or prosecute any alcohol or drug abuse patient.[facility] HospitalIn the event this information is protected by the Federal Confidentiality of Alcohol and Drug Abuse Patient Records regulations: The Federal rules restrict any use of the information to criminally investigate or prosecute any alcohol or drug abuse patient.[facility] HospitalIn the event this information is protected by the Federal Confidentiality of Alcohol and Drug Abuse Patient Records regulations: The Federal rules restrict any use of the information to criminally investigate or prosecute any alcohol or drug abuse patient.[facility] HospitalIn the event this information is protected by the Federal Confidentiality of Alcohol and Drug Abuse Patient Records regulations: The Federal rules restrict any use of the information to criminally investigate or prosecute any alcohol or drug abuse patient.[facility] HospitalIn the event this information is protected by the Federal Confidentiality of Alcohol and Drug Abuse Patient Records regulations: The Federal rules restrict any use of the information to criminally investigate or prosecute any alcohol or drug abuse patient.[facility] HospitalIn the event this information is protected by the Federal Confidentiality of Alcohol and Drug Abuse Patient Records regulations: The Federal rules restrict any use of the information to criminally investigate or prosecute any alcohol or drug abuse patient.[facility] HospitalIn the event this information is protected by the Federal Confidentiality of Alcohol and Drug Abuse Patient Records regulations: The Federal rules restrict any use of the information to criminally investigate or prosecute any alcohol or drug abuse patient.[facility] HospitalIn the event this information is protected by the Federal Confidentiality of Alcohol and Drug Abuse Patient Records regulations: The Federal rules restrict any use of the information to criminally investigate or prosecute any alcohol or drug abuse patient.[facility] HospitalIn the event this information is protected by the Federal Confidentiality of Alcohol and Drug Abuse Patient Records regulations: The Federal rules restrict any use of the information to criminally investigate or prosecute any alcohol or drug abuse patient.[facility] HospitalIn the event this information is protected by the Federal Confidentiality of Alcohol and Drug Abuse Patient Records regulations: The Federal rules restrict any use of the information to criminally investigate or prosecute any alcohol or drug abuse patient.[facility] HospitalIn the event this information is protected by the Federal Confidentiality of Alcohol and Drug Abuse Patient Records regulations: The Federal rules restrict any use of the information to criminally investigate or prosecute any alcohol or drug abuse patient.[facility] HospitalIn the event this information is protected by the Federal Confidentiality of Alcohol and Drug Abuse Patient Records regulations: The Federal rules restrict any use of the information to criminally investigate or prosecute any alcohol or drug abuse patient.[facility] HospitalIn the event this information is protected by the Federal Confidentiality of Alcohol and Drug Abuse Patient Records regulations: The Federal rules restrict any use of the information to criminally investigate or prosecute any alcohol or drug abuse patient.[facility] HospitalIn the event this information is protected by the Federal Confidentiality of Alcohol and Drug Abuse Patient Records regulations: The Federal rules restrict any use of the information to criminally investigate or prosecute any alcohol or drug abuse patient.[facility] HospitalIn the event this information is protected by the Federal Confidentiality of Alcohol and Drug Abuse Patient Records regulations: The Federal rules restrict any use of the information to criminally investigate or prosecute any alcohol or drug abuse patient.[facility] HospitalIn the event this information is protected by the Federal Confidentiality of Alcohol and Drug Abuse Patient Records regulations: The Federal rules restrict any use of the information to criminally investigate or prosecute any alcohol or drug abuse patient.[facility] HospitalIn the event this information is protected by the Federal Confidentiality of Alcohol and Drug Abuse Patient Records regulations: The Federal rules restrict any use of the information to criminally investigate or prosecute any alcohol or drug abuse patient.[facility] HospitalIn the event this information is protected by the Federal Confidentiality of Alcohol and Drug Abuse Patient Records regulations: The Federal rules restrict any use of the information to criminally investigate or prosecute any alcohol or drug abuse patient.[facility] HospitalIn the event this information is protected by the Federal Confidentiality of Alcohol and Drug Abuse Patient Records regulations: The Federal rules restrict any use of the information to criminally investigate or prosecute any alcohol or drug abuse patient.[facility] HospitalIn the event this information is protected by the Federal Confidentiality of Alcohol and Drug Abuse Patient Records regulations: The Federal rules restrict any use of the information to criminally investigate or prosecute any alcohol or drug abuse patient.[facility] HospitalIn the event this information is protected by the Federal Confidentiality of Alcohol and Drug Abuse Patient Records regulations: The Federal rules restrict any use of the information to criminally investigate or prosecute any alcohol or drug abuse patient.[facility] HospitalIn the event this information is protected by the Federal Confidentiality of Alcohol and Drug Abuse Patient Records regulations: The Federal rules restrict any use of the information to criminally investigate or prosecute any alcohol or drug abuse patient.[facility] HospitalIn the event this information is protected by the Federal Confidentiality of Alcohol and Drug Abuse Patient Records regulations: The Federal rules restrict any use of the information to criminally investigate or prosecute any alcohol or drug abuse patient.[facility] HospitalIn the event this information is protected by the Federal Confidentiality of Alcohol and Drug Abuse Patient Records regulations: The Federal rules restrict any use of the information to criminally investigate or prosecute any alcohol or drug abuse patient.[facility] HospitalIn the event this information is protected by the Federal Confidentiality of Alcohol and Drug Abuse Patient Records regulations: The Federal rules restrict any use of the information to criminally investigate or prosecute any alcohol or drug abuse patient.[facility] HospitalIn the event this information is protected by the Federal Confidentiality of Alcohol and Drug Abuse Patient Records regulations: The Federal rules restrict any use of the information to criminally investigate or prosecute any alcohol or drug abuse patient.[facility] HospitalIn the event this information is protected by the Federal Confidentiality of Alcohol and Drug Abuse Patient Records regulations: The Federal rules restrict any use of the information to criminally investigate or prosecute any alcohol or drug abuse patient.[facility] HospitalIn the event this information is protected by the Federal Confidentiality of Alcohol and Drug Abuse Patient Records regulations: The Federal rules restrict any use of the information to criminally investigate or prosecute any alcohol or drug abuse patient.[facility] HospitalIn the event this information is protected by the Federal Confidentiality of Alcohol and Drug Abuse Patient Records regulations: The Federal rules restrict any use of the information to criminally investigate or prosecute any alcohol or drug abuse patient.[facility] HospitalIn the event this information is protected by the Federal Confidentiality of Alcohol and Drug Abuse Patient Records regulations: The Federal rules restrict any use of the information to criminally investigate or prosecute any alcohol or drug abuse patient.[facility] HospitalIn the event this information is protected by the Federal Confidentiality of Alcohol and Drug Abuse Patient Records regulations: The Federal rules restrict any use of the information to criminally investigate or prosecute any alcohol or drug abuse patient.[facility] HospitalIn the event this information is protected by the Federal Confidentiality of Alcohol and Drug Abuse Patient Records regulations: The Federal rules restrict any use of the information to criminally investigate or prosecute any alcohol or drug abuse patient.[facility] HospitalIn the event this information is protected by the Federal Confidentiality of Alcohol and Drug Abuse Patient Records regulations: The Federal rules restrict any use of the information to criminally investigate or prosecute any alcohol or drug abuse patient.[facility] HospitalIn the event this information is protected by the Federal Confidentiality of Alcohol and Drug Abuse Patient Records regulations: The Federal rules restrict any use of the information to criminally investigate or prosecute any alcohol or drug abuse patient.[facility] HospitalIn the event this information is protected by the Federal Confidentiality of Alcohol and Drug Abuse Patient Records regulations: The Federal rules restrict any use of the information to criminally investigate or prosecute any alcohol or drug abuse patient.[facility] HospitalIn the event this information is protected by the Federal Confidentiality of Alcohol and Drug Abuse Patient Records regulations: The Federal rules restrict any use of the information to criminally investigate or prosecute any alcohol or drug abuse patient.[facility] HospitalIn the event this information is protected by the Federal Confidentiality of Alcohol and Drug Abuse Patient Records regulations: The Federal rules restrict any use of the information to criminally investigate or prosecute any alcohol or drug abuse patient.[facility] HospitalIn the event this information is protected by the Federal Confidentiality of Alcohol and Drug Abuse Patient Records regulations: The Federal rules restrict any use of the information to criminally investigate or prosecute any alcohol or drug abuse patient.[facility] HospitalIn the event this information is protected by the Federal Confidentiality of Alcohol and Drug Abuse Patient Records regulations: The Federal rules restrict any use of the information to criminally investigate or prosecute any alcohol or drug abuse patient.[facility] HospitalIn the event this information is protected by the Federal Confidentiality of Alcohol and Drug Abuse Patient Records regulations: The Federal rules restrict any use of the information to criminally investigate or prosecute any alcohol or drug abuse patient.[facility] HospitalIn the event this information is protected by the Federal Confidentiality of Alcohol and Drug Abuse Patient Records regulations: The Federal rules restrict any use of the information to criminally investigate or prosecute any alcohol or drug abuse patient.[facility] HospitalIn the event this information is protected by the Federal Confidentiality of Alcohol and Drug Abuse Patient Records regulations: The Federal rules restrict any use of the information to criminally investigate or prosecute any alcohol or drug abuse patient.[facility] HospitalIn the event this information is protected by the Federal Confidentiality of Alcohol and Drug Abuse Patient Records regulations: The Federal rules restrict any use of the information to criminally investigate or prosecute any alcohol or drug abuse patient.[facility] HospitalIn the event this information is protected by the Federal Confidentiality of Alcohol and Drug Abuse Patient Records regulations: The Federal rules restrict any use of the information to criminally investigate or prosecute any alcohol or drug abuse patient.[facility] HospitalIn the event this information is protected by the Federal Confidentiality of Alcohol and Drug Abuse Patient Records regulations: The Federal rules restrict any use of the information to criminally investigate or prosecute any alcohol or drug abuse patient.[facility] HospitalIn the event this information is protected by the Federal Confidentiality of Alcohol and Drug Abuse Patient Records regulations: The Federal rules restrict any use of the information to criminally investigate or prosecute any alcohol or drug abuse patient.[facility] HospitalIn the event this information is protected by the Federal Confidentiality of Alcohol and Drug Abuse Patient Records regulations: The Federal rules restrict any use of the information to criminally investigate or prosecute any alcohol or drug abuse patient.[facility] HospitalIn the event this information is protected by the Federal Confidentiality of Alcohol and Drug Abuse Patient Records regulations: The Federal rules restrict any use of the information to criminally investigate or prosecute any alcohol or drug abuse patient.[facility] HospitalIn the event this information is protected by the Federal Confidentiality of Alcohol and Drug Abuse Patient Records regulations: The Federal rules restrict any use of the information to criminally investigate or prosecute any alcohol or drug abuse patient.[facility] HospitalIn the event this information is protected by the Federal Confidentiality of Alcohol and Drug Abuse Patient Records regulations: The Federal rules restrict any use of the information to criminally investigate or prosecute any alcohol or drug abuse patient.[facility] HospitalIn the event this information is protected by the Federal Confidentiality of Alcohol and Drug Abuse Patient Records regulations: The Federal rules restrict any use of the information to criminally investigate or prosecute any alcohol or drug abuse patient.[facility] HospitalIn the event this information is protected by the Federal Confidentiality of Alcohol and Drug Abuse Patient Records regulations: The Federal rules restrict any use of the information to criminally investigate or prosecute any alcohol or drug abuse patient.[facility] HospitalIn the event this information is protected by the Federal Confidentiality of Alcohol and Drug Abuse Patient Records regulations: The Federal rules restrict any use of the information to criminally investigate or prosecute any alcohol or drug abuse patient.[facility] HospitalIn the event this information is protected by the Federal Confidentiality of Alcohol and Drug Abuse Patient Records regulations: The Federal rules restrict any use of the information to criminally investigate or prosecute any alcohol or drug abuse patient.[facility] HospitalIn the event this information is protected by the Federal Confidentiality of Alcohol and Drug Abuse Patient Records regulations: The Federal rules restrict any use of the information to criminally investigate or prosecute any alcohol or drug abuse patient.[facility] HospitalIn the event this information is protected by the Federal Confidentiality of Alcohol and Drug Abuse Patient Records regulations: The Federal rules restrict any use of the information to criminally investigate or prosecute any alcohol or drug abuse patient.[facility] HospitalIn the event this information is protected by the Federal Confidentiality of Alcohol and Drug Abuse Patient Records regulations: The Federal rules restrict any use of the information to criminally investigate or prosecute any alcohol or drug abuse patient.[facility] HospitalIn the event this information is protected by the Federal Confidentiality of Alcohol and Drug Abuse Patient Records regulations: The Federal rules restrict any use of the information to criminally investigate or prosecute any alcohol or drug abuse patient.[facility] HospitalIn the event this information is protected by the Federal Confidentiality of Alcohol and Drug Abuse Patient Records regulations: The Federal rules restrict any use of the information to criminally investigate or prosecute any alcohol or drug abuse patient.[facility] HospitalIn the event this information is protected by the Federal Confidentiality of Alcohol and Drug Abuse Patient Records regulations: The Federal rules restrict any use of the information to criminally investigate or prosecute any alcohol or drug abuse patient.[facility] HospitalIn the event this information is protected by the Federal Confidentiality of Alcohol and Drug Abuse Patient Records regulations: The Federal rules restrict any use of the information to criminally investigate or prosecute any alcohol or drug abuse patient.[facility] HospitalIn the event this information is protected by the Federal Confidentiality of Alcohol and Drug Abuse Patient Records regulations: The Federal rules restrict any use of the information to criminally investigate or prosecute any alcohol or drug abuse patient.[facility] HospitalIn the event this information is protected by the Federal Confidentiality of Alcohol and Drug Abuse Patient Records regulations: The Federal rules restrict any use of the information to criminally investigate or prosecute any alcohol or drug abuse patient.[facility] HospitalIn the event this information is protected by the Federal Confidentiality of Alcohol and Drug Abuse Patient Records regulations: The Federal rules restrict any use of the information to criminally investigate or prosecute any alcohol or drug abuse patient.[facility] HospitalIn the event this information is protected by the Federal Confidentiality of Alcohol and Drug Abuse Patient Records regulations: The Federal rules restrict any use of the information to criminally investigate or prosecute any alcohol or drug abuse patient.[facility] HospitalIn the event this information is protected by the Federal Confidentiality of Alcohol and Drug Abuse Patient Records regulations: The Federal rules restrict any use of the information to criminally investigate or prosecute any alcohol or drug abuse patient.[facility] HospitalIn the event this information is protected by the Federal Confidentiality of Alcohol and Drug Abuse Patient Records regulations: The Federal rules restrict any use of the information to criminally investigate or prosecute any alcohol or drug abuse patient.[facility] HospitalIn the event this information is protected by the Federal Confidentiality of Alcohol and Drug Abuse Patient Records regulations: The Federal rules restrict any use of the information to criminally investigate or prosecute any alcohol or drug abuse patient.[facility] HospitalIn the event this information is protected by the Federal Confidentiality of Alcohol and Drug Abuse Patient Records regulations: The Federal rules restrict any use of the information to criminally investigate or prosecute any alcohol or drug abuse patient.[facility] HospitalIn the event this information is protected by the Federal Confidentiality of Alcohol and Drug Abuse Patient Records regulations: The Federal rules restrict any use of the information to criminally investigate or prosecute any alcohol or drug abuse patient.[facility] HospitalIn the event this information is protected by the Federal Confidentiality of Alcohol and Drug Abuse Patient Records regulations: The Federal rules restrict any use of the information to criminally investigate or prosecute any alcohol or drug abuse patient.[facility] HospitalIn the event this information is protected by the Federal Confidentiality of Alcohol and Drug Abuse Patient Records regulations: The Federal rules restrict any use of the information to criminally investigate or prosecute any alcohol or drug abuse patient.[facility] HospitalIn the event this information is protected by the Federal Confidentiality of Alcohol and Drug Abuse Patient Records regulations: The Federal rules restrict any use of the information to criminally investigate or prosecute any alcohol or drug abuse patient.[facility] HospitalIn the event this information is protected by the Federal Confidentiality of Alcohol and Drug Abuse Patient Records regulations: The Federal rules restrict any use of the information to criminally investigate or prosecute any alcohol or drug abuse patient.[facility] HospitalIn the event this information is protected by the Federal Confidentiality of Alcohol and Drug Abuse Patient Records regulations: The Federal rules restrict any use of the information to criminally investigate or prosecute any alcohol or drug abuse patient.[facility] HospitalIn the event this information is protected by the Federal Confidentiality of Alcohol and Drug Abuse Patient Records regulations: The Federal rules restrict any use of the information to criminally investigate or prosecute any alcohol or drug abuse patient.[facility] HospitalIn the event this information is protected by the Federal Confidentiality of Alcohol and Drug Abuse Patient Records regulations: The Federal rules restrict any use of the information to criminally investigate or prosecute any alcohol or drug abuse patient.[facility] HospitalIn the event this information is protected by the Federal Confidentiality of Alcohol and Drug Abuse Patient Records regulations: The Federal rules restrict any use of the information to criminally investigate or prosecute any alcohol or drug abuse patient.[facility] HospitalIn the event this information is protected by the Federal Confidentiality of Alcohol and Drug Abuse Patient Records regulations: The Federal rules restrict any use of the information to criminally investigate or prosecute any alcohol or drug abuse patient.[facility] HospitalIn the event this information is protected by the Federal Confidentiality of Alcohol and Drug Abuse Patient Records regulations: The Federal rules restrict any use of the information to criminally investigate or prosecute any alcohol or drug abuse patient.[facility] HospitalIn the event this information is protected by the Federal Confidentiality of Alcohol and Drug Abuse Patient Records regulations: The Federal rules restrict any use of the information to criminally investigate or prosecute any alcohol or drug abuse patient.[facility] HospitalIn the event this information is protected by the Federal Confidentiality of Alcohol and Drug Abuse Patient Records regulations: The Federal rules restrict any use of the information to criminally investigate or prosecute any alcohol or drug abuse patient.[facility] HospitalIn the event this information is protected by the Federal Confidentiality of Alcohol and Drug Abuse Patient Records regulations: The Federal rules restrict any use of the information to criminally investigate or prosecute any alcohol or drug abuse patient.[facility] HospitalIn the event this information is protected by the Federal Confidentiality of Alcohol and Drug Abuse Patient Records regulations: The Federal rules restrict any use of the information to criminally investigate or prosecute any alcohol or drug abuse patient.[facility] HospitalIn the event this information is protected by the Federal Confidentiality of Alcohol and Drug Abuse Patient Records regulations: The Federal rules restrict any use of the information to criminally investigate or prosecute any alcohol or drug abuse patient.[facility] HospitalIn the event this information is protected by the Federal Confidentiality of Alcohol and Drug Abuse Patient Records regulations: The Federal rules restrict any use of the information to criminally investigate or prosecute any alcohol or drug abuse patient.[facility] HospitalIn the event this information is protected by the Federal Confidentiality of Alcohol and Drug Abuse Patient Records regulations: The Federal rules restrict any use of the information to criminally investigate or prosecute any alcohol or drug abuse patient.[facility] HospitalIn the event this information is protected by the Federal Confidentiality of Alcohol and Drug Abuse Patient Records regulations: The Federal rules restrict any use of the information to criminally investigate or prosecute any alcohol or drug abuse patient.[facility] HospitalIn the event this information is protected by the Federal Confidentiality of Alcohol and Drug Abuse Patient Records regulations: The Federal rules restrict any use of the information to criminally investigate or prosecute any alcohol or drug abuse patient.[facility] HospitalIn the event this information is protected by the Federal Confidentiality of Alcohol and Drug Abuse Patient Records regulations: The Federal rules restrict any use of the information to criminally investigate or prosecute any alcohol or drug abuse patient.[facility] HospitalIn the event this information is protected by the Federal Confidentiality of Alcohol and Drug Abuse Patient Records regulations: The Federal rules restrict any use of the information to criminally investigate or prosecute any alcohol or drug abuse patient.[facility] HospitalIn the event this information is protected by the Federal Confidentiality of Alcohol and Drug Abuse Patient Records regulations: The Federal rules restrict any use of the information to criminally investigate or prosecute any alcohol or drug abuse patient.[facility] HospitalIn the event this information is protected by the Federal Confidentiality of Alcohol and Drug Abuse Patient Records regulations: The Federal rules restrict any use of the information to criminally investigate or prosecute any alcohol or drug abuse patient.[facility] HospitalIn the event this information is protected by the Federal Confidentiality of Alcohol and Drug Abuse Patient Records regulations: The Federal rules restrict any use of the information to criminally investigate or prosecute any alcohol or drug abuse patient.[facility] HospitalIn the event this information is protected by the Federal Confidentiality of Alcohol and Drug Abuse Patient Records regulations: The Federal rules restrict any use of the information to criminally investigate or prosecute any alcohol or drug abuse patient.[facility] HospitalIn the event this information is protected by the Federal Confidentiality of Alcohol and Drug Abuse Patient Records regulations: The Federal rules restrict any use of the information to criminally investigate or prosecute any alcohol or drug abuse patient.[facility] HospitalIn the event this information is protected by the Federal Confidentiality of Alcohol and Drug Abuse Patient Records regulations: The Federal rules restrict any use of the information to criminally investigate or prosecute any alcohol or drug abuse patient.[facility] HospitalIn the event this information is protected by the Federal Confidentiality of Alcohol and Drug Abuse Patient Records regulations: The Federal rules restrict any use of the information to criminally investigate or prosecute any alcohol or drug abuse patient.[facility] HospitalIn the event this information is protected by the Federal Confidentiality of Alcohol and Drug Abuse Patient Records regulations: The Federal rules restrict any use of the information to criminally investigate or prosecute any alcohol or drug abuse patient.[facility] HospitalIn the event this information is protected by the Federal Confidentiality of Alcohol and Drug Abuse Patient Records regulations: The Federal rules restrict any use of the information to criminally investigate or prosecute any alcohol or drug abuse patient.[facility] HospitalIn the event this information is protected by the Federal Confidentiality of Alcohol and Drug Abuse Patient Records regulations: The Federal rules restrict any use of the information to criminally investigate or prosecute any alcohol or drug abuse patient.[facility] HospitalIn the event this information is protected by the Federal Confidentiality of Alcohol and Drug Abuse Patient Records regulations: The Federal rules restrict any use of the information to criminally investigate or prosecute any alcohol or drug abuse patient.[facility] HospitalIn the event this information is protected by the Federal Confidentiality of Alcohol and Drug Abuse Patient Records regulations: The Federal rules restrict any use of the information to criminally investigate or prosecute any alcohol or drug abuse patient.[facility] HospitalIn the event this information is protected by the Federal Confidentiality of Alcohol and Drug Abuse Patient Records regulations: The Federal rules restrict any use of the information to criminally investigate or prosecute any alcohol or drug abuse patient.[facility] HospitalIn the event this information is protected by the Federal Confidentiality of Alcohol and Drug Abuse Patient Records regulations: The Federal rules restrict any use of the information to criminally investigate or prosecute any alcohol or drug abuse patient.[facility] HospitalIn the event this information is protected by the Federal Confidentiality of Alcohol and Drug Abuse Patient Records regulations: The Federal rules restrict any use of the information to criminally investigate or prosecute any alcohol or drug abuse patient.[facility] HospitalIn the event this information is protected by the Federal Confidentiality of Alcohol and Drug Abuse Patient Records regulations: The Federal rules restrict any use of the information to criminally investigate or prosecute any alcohol or drug abuse patient.[facility] HospitalIn the event this information is protected by the Federal Confidentiality of Alcohol and Drug Abuse Patient Records regulations: The Federal rules restrict any use of the information to criminally investigate or prosecute any alcohol or drug abuse patient.[facility] HospitalIn the event this information is protected by the Federal Confidentiality of Alcohol and Drug Abuse Patient Records regulations: The Federal rules restrict any use of the information to criminally investigate or prosecute any alcohol or drug abuse patient.[facility] HospitalIn the event this information is protected by the Federal Confidentiality of Alcohol and Drug Abuse Patient Records regulations: The Federal rules restrict any use of the information to criminally investigate or prosecute any alcohol or drug abuse patient.[facility] HospitalIn the event this information is protected by the Federal Confidentiality of Alcohol and Drug Abuse Patient Records regulations: The Federal rules restrict any use of the information to criminally investigate or prosecute any alcohol or drug abuse patient.[facility] HospitalIn the event this information is protected by the Federal Confidentiality of Alcohol and Drug Abuse Patient Records regulations: The Federal rules restrict any use of the information to criminally investigate or prosecute any alcohol or drug abuse patient.[facility] HospitalIn the event this information is protected by the Federal Confidentiality of Alcohol and Drug Abuse Patient Records regulations: The Federal rules restrict any use of the information to criminally investigate or prosecute any alcohol or drug abuse patient.[facility] HospitalIn the event this information is protected by the Federal Confidentiality of Alcohol and Drug Abuse Patient Records regulations: The Federal rules restrict any use of the information to criminally investigate or prosecute any alcohol or drug abuse patient.[facility] HospitalIn the event this information is protected by the Federal Confidentiality of Alcohol and Drug Abuse Patient Records regulations: The Federal rules restrict any use of the information to criminally investigate or prosecute any alcohol or drug abuse patient.[facility] HospitalIn the event this information is protected by the Federal Confidentiality of Alcohol and Drug Abuse Patient Records regulations: The Federal rules restrict any use of the information to criminally investigate or prosecute any alcohol or drug abuse patient.[facility] HospitalIn the event this information is protected by the Federal Confidentiality of Alcohol and Drug Abuse Patient Records regulations: The Federal rules restrict any use of the information to criminally investigate or prosecute any alcohol or drug abuse patient.[facility] HospitalIn the event this information is protected by the Federal Confidentiality of Alcohol and Drug Abuse Patient Records regulations: The Federal rules restrict any use of the information to criminally investigate or prosecute any alcohol or drug abuse patient.[facility] HospitalIn the event this information is protected by the Federal Confidentiality of Alcohol and Drug Abuse Patient Records regulations: The Federal rules restrict any use of the information to criminally investigate or prosecute any alcohol or drug abuse patient.[facility] HospitalIn the event this information is protected by the Federal Confidentiality of Alcohol and Drug Abuse Patient Records regulations: The Federal rules restrict any use of the information to criminally investigate or prosecute any alcohol or drug abuse patient.[facility] HospitalIn the event this information is protected by the Federal Confidentiality of Alcohol and Drug Abuse Patient Records regulations: The Federal rules restrict any use of the information to criminally investigate or prosecute any alcohol or drug abuse patient.[facility] HospitalIn the event this information is protected by the Federal Confidentiality of Alcohol and Drug Abuse Patient Records regulations: The Federal rules restrict any use of the information to criminally investigate or prosecute any alcohol or drug abuse patient.[facility] HospitalIn the event this information is protected by the Federal Confidentiality of Alcohol and Drug Abuse Patient Records regulations: The Federal rules restrict any use of the information to criminally investigate or prosecute any alcohol or drug abuse patient.[facility] HospitalIn the event this information is protected by the Federal Confidentiality of Alcohol and Drug Abuse Patient Records regulations: The Federal rules restrict any use of the information to criminally investigate or prosecute any alcohol or drug abuse patient.[facility] HospitalIn the event this information is protected by the Federal Confidentiality of Alcohol and Drug Abuse Patient Records regulations: The Federal rules restrict any use of the information to criminally investigate or prosecute any alcohol or drug abuse patient.[facility] HospitalIn the event this information is protected by the Federal Confidentiality of Alcohol and Drug Abuse Patient Records regulations: The Federal rules restrict any use of the information to criminally investigate or prosecute any alcohol or drug abuse patient.[facility] HospitalIn the event this information is protected by the Federal Confidentiality of Alcohol and Drug Abuse Patient Records regulations: The Federal rules restrict any use of the information to criminally investigate or prosecute any alcohol or drug abuse patient.[facility] HospitalIn the event this information is protected by the Federal Confidentiality of Alcohol and Drug Abuse Patient Records regulations: The Federal rules restrict any use of the information to criminally investigate or prosecute any alcohol or drug abuse patient.[facility] HospitalIn the event this information is protected by the Federal Confidentiality of Alcohol and Drug Abuse Patient Records regulations: The Federal rules restrict any use of the information to criminally investigate or prosecute any alcohol or drug abuse patient.[facility] HospitalIn the event this information is protected by the Federal Confidentiality of Alcohol and Drug Abuse Patient Records regulations: The Federal rules restrict any use of the information to criminally investigate or prosecute any alcohol or drug abuse patient.[facility] HospitalIn the event this information is protected by the Federal Confidentiality of Alcohol and Drug Abuse Patient Records regulations: The Federal rules restrict any use of the information to criminally investigate or prosecute any alcohol or drug abuse patient.[facility] HospitalIn the event this information is protected by the Federal Confidentiality of Alcohol and Drug Abuse Patient Records regulations: The Federal rules restrict any use of the information to criminally investigate or prosecute any alcohol or drug abuse patient.[facility] HospitalIn the event this information is protected by the Federal Confidentiality of Alcohol and Drug Abuse Patient Records regulations: The Federal rules restrict any use of the information to criminally investigate or prosecute any alcohol or drug abuse patient.[facility] HospitalIn the event this information is protected by the Federal Confidentiality of Alcohol and Drug Abuse Patient Records regulations: The Federal rules restrict any use of the information to criminally investigate or prosecute any alcohol or drug abuse patient.[facility] HospitalIn the event this information is protected by the Federal Confidentiality of Alcohol and Drug Abuse Patient Records regulations: The Federal rules restrict any use of the information to criminally investigate or prosecute any alcohol or drug abuse patient.[facility] HospitalIn the event this information is protected by the Federal Confidentiality of Alcohol and Drug Abuse Patient Records regulations: The Federal rules restrict any use of the information to criminally investigate or prosecute any alcohol or drug abuse patient.[facility] HospitalIn the event this information is protected by the Federal Confidentiality of Alcohol and Drug Abuse Patient Records regulations: The Federal rules restrict any use of the information to criminally investigate or prosecute any alcohol or drug abuse patient.[facility] HospitalIn the event this information is protected by the Federal Confidentiality of Alcohol and Drug Abuse Patient Records regulations: The Federal rules restrict any use of the information to criminally investigate or prosecute any alcohol or drug abuse patient.[facility] HospitalIn the event this information is protected by the Federal Confidentiality of Alcohol and Drug Abuse Patient Records regulations: The Federal rules restrict any use of the information to criminally investigate or prosecute any alcohol or drug abuse patient.[facility] HospitalIn the event this information is protected by the Federal Confidentiality of Alcohol and Drug Abuse Patient Records regulations: The Federal rules restrict any use of the information to criminally investigate or prosecute any alcohol or drug abuse patient.[facility] HospitalIn the event this information is protected by the Federal Confidentiality of Alcohol and Drug Abuse Patient Records regulations: The Federal rules restrict any use of the information to criminally investigate or prosecute any alcohol or drug abuse patient.[facility] HospitalIn the event this information is protected by the Federal Confidentiality of Alcohol and Drug Abuse Patient Records regulations: The Federal rules restrict any use of the information to criminally investigate or prosecute any alcohol or drug abuse patient.[facility] HospitalIn the event this information is protected by the Federal Confidentiality of Alcohol and Drug Abuse Patient Records regulations: The Federal rules restrict any use of the information to criminally investigate or prosecute any alcohol or drug abuse patient.[facility] HospitalIn the event this information is protected by the Federal Confidentiality of Alcohol and Drug Abuse Patient Records regulations: The Federal rules restrict any use of the information to criminally investigate or prosecute any alcohol or drug abuse patient.[facility] HospitalIn the event this information is protected by the Federal Confidentiality of Alcohol and Drug Abuse Patient Records regulations: The Federal rules restrict any use of the information to criminally investigate or prosecute any alcohol or drug abuse patient.[facility] HospitalIn the event this information is protected by the Federal Confidentiality of Alcohol and Drug Abuse Patient Records regulations: The Federal rules restrict any use of the information to criminally investigate or prosecute any alcohol or drug abuse patient.[facility] HospitalIn the event this information is protected by the Federal Confidentiality of Alcohol and Drug Abuse Patient Records regulations: The Federal rules restrict any use of the information to criminally investigate or prosecute any alcohol or drug abuse patient.[facility] HospitalIn the event this information is protected by the Federal Confidentiality of Alcohol and Drug Abuse Patient Records regulations: The Federal rules restrict any use of the information to criminally investigate or prosecute any alcohol or drug abuse patient.[facility] HospitalIn the event this information is protected by the Federal Confidentiality of Alcohol and Drug Abuse Patient Records regulations: The Federal rules restrict any use of the information to criminally investigate or prosecute any alcohol or drug abuse patient.[facility] HospitalIn the event this information is protected by the Federal Confidentiality of Alcohol and Drug Abuse Patient Records regulations: The Federal rules restrict any use of the information to criminally investigate or prosecute any alcohol or drug abuse patient.[facility] HospitalIn the event this information is protected by the Federal Confidentiality of Alcohol and Drug Abuse Patient Records regulations: The Federal rules restrict any use of the information to criminally investigate or prosecute any alcohol or drug abuse patient.[facility] HospitalIn the event this information is protected by the Federal Confidentiality of Alcohol and Drug Abuse Patient Records regulations: The Federal rules restrict any use of the information to criminally investigate or prosecute any alcohol or drug abuse patient.[facility] HospitalIn the event this information is protected by the Federal Confidentiality of Alcohol and Drug Abuse Patient Records regulations: The Federal rules restrict any use of the information to criminally investigate or prosecute any alcohol or drug abuse patient.[facility] HospitalIn the event this information is protected by the Federal Confidentiality of Alcohol and Drug Abuse Patient Records regulations: The Federal rules restrict any use of the information to criminally investigate or prosecute any alcohol or drug abuse patient.[facility] HospitalIn the event this information is protected by the Federal Confidentiality of Alcohol and Drug Abuse Patient Records regulations: The Federal rules restrict any use of the information to criminally investigate or prosecute any alcohol or drug abuse patient.[facility] HospitalIn the event this information is protected by the Federal Confidentiality of Alcohol and Drug Abuse Patient Records regulations: The Federal rules restrict any use of the information to criminally investigate or prosecute any alcohol or drug abuse patient.[facility] HospitalIn the event this information is protected by the Federal Confidentiality of Alcohol and Drug Abuse Patient Records regulations: The Federal rules restrict any use of the information to criminally investigate or prosecute any alcohol or drug abuse patient.[facility] HospitalIn the event this information is protected by the Federal Confidentiality of Alcohol and Drug Abuse Patient Records regulations: The Federal rules restrict any use of the information to criminally investigate or prosecute any alcohol or drug abuse patient.[facility] HospitalIn the event this information is protected by the Federal Confidentiality of Alcohol and Drug Abuse Patient Records regulations: The Federal rules restrict any use of the information to criminally investigate or prosecute any alcohol or drug abuse patient.[facility] HospitalIn the event this information is protected by the Federal Confidentiality of Alcohol and Drug Abuse Patient Records regulations: The Federal rules restrict any use of the information to criminally investigate or prosecute any alcohol or drug abuse patient.[facility] HospitalIn the event this information is protected by the Federal Confidentiality of Alcohol and Drug Abuse Patient Records regulations: The Federal rules restrict any use of the information to criminally investigate or prosecute any alcohol or drug abuse patient.[facility] HospitalIn the event this information is protected by the Federal Confidentiality of Alcohol and Drug Abuse Patient Records regulations: The Federal rules restrict any use of the information to criminally investigate or prosecute any alcohol or drug abuse patient.[facility] HospitalIn the event this information is protected by the Federal Confidentiality of Alcohol and Drug Abuse Patient Records regulations: The Federal rules restrict any use of the information to criminally investigate or prosecute any alcohol or drug abuse patient.[facility] HospitalIn the event this information is protected by the Federal Confidentiality of Alcohol and Drug Abuse Patient Records regulations: The Federal rules restrict any use of the information to criminally investigate or prosecute any alcohol or drug abuse patient.[facility] HospitalIn the event this information is protected by the Federal Confidentiality of Alcohol and Drug Abuse Patient Records regulations: The Federal rules restrict any use of the information to criminally investigate or prosecute any alcohol or drug abuse patient.[facility] HospitalIn the event this information is protected by the Federal Confidentiality of Alcohol and Drug Abuse Patient Records regulations: The Federal rules restrict any use of the information to criminally investigate or prosecute any alcohol or drug abuse patient.[facility] HospitalIn the event this information is protected by the Federal Confidentiality of Alcohol and Drug Abuse Patient Records regulations: The Federal rules restrict any use of the information to criminally investigate or prosecute any alcohol or drug abuse patient.[facility] HospitalIn the event this information is protected by the Federal Confidentiality of Alcohol and Drug Abuse Patient Records regulations: The Federal rules restrict any use of the information to criminally investigate or prosecute any alcohol or drug abuse patient.[facility] HospitalIn the event this information is protected by the Federal Confidentiality of Alcohol and Drug Abuse Patient Records regulations: The Federal rules restrict any use of the information to criminally investigate or prosecute any alcohol or drug abuse patient.[facility] HospitalIn the event this information is protected by the Federal Confidentiality of Alcohol and Drug Abuse Patient Records regulations: The Federal rules restrict any use of the information to criminally investigate or prosecute any alcohol or drug abuse patient.[facility] HospitalIn the event this information is protected by the Federal Confidentiality of Alcohol and Drug Abuse Patient Records regulations: The Federal rules restrict any use of the information to criminally investigate or prosecute any alcohol or drug abuse patient.[facility] HospitalIn the event this information is protected by the Federal Confidentiality of Alcohol and Drug Abuse Patient Records regulations: The Federal rules restrict any use of the information to criminally investigate or prosecute any alcohol or drug abuse patient.[facility] HospitalIn the event this information is protected by the Federal Confidentiality of Alcohol and Drug Abuse Patient Records regulations: The Federal rules restrict any use of the information to criminally investigate or prosecute any alcohol or drug abuse patient.[facility] HospitalIn the event this information is protected by the Federal Confidentiality of Alcohol and Drug Abuse Patient Records regulations: The Federal rules restrict any use of the information to criminally investigate or prosecute any alcohol or drug abuse patient.[facility] HospitalIn the event this information is protected by the Federal Confidentiality of Alcohol and Drug Abuse Patient Records regulations: The Federal rules restrict any use of the information to criminally investigate or prosecute any alcohol or drug abuse patient.[facility] HospitalIn the event this information is protected by the Federal Confidentiality of Alcohol and Drug Abuse Patient Records regulations: The Federal rules restrict any use of the information to criminally investigate or prosecute any alcohol or drug abuse patient.[facility] HospitalIn the event this information is protected by the Federal Confidentiality of Alcohol and Drug Abuse Patient Records regulations: The Federal rules restrict any use of the information to criminally investigate or prosecute any alcohol or drug abuse patient.[facility] HospitalIn the event this information is protected by the Federal Confidentiality of Alcohol and Drug Abuse Patient Records regulations: The Federal rules restrict any use of the information to criminally investigate or prosecute any alcohol or drug abuse patient.[facility] HospitalIn the event this information is protected by the Federal Confidentiality of Alcohol and Drug Abuse Patient Records regulations: The Federal rules restrict any use of the information to criminally investigate or prosecute any alcohol or drug abuse patient.[facility] HospitalIn the event this information is protected by the Federal Confidentiality of Alcohol and Drug Abuse Patient Records regulations: The Federal rules restrict any use of the information to criminally investigate or prosecute any alcohol or drug abuse patient.[facility] HospitalIn the event this information is protected by the Federal Confidentiality of Alcohol and Drug Abuse Patient Records regulations: The Federal rules restrict any use of the information to criminally investigate or prosecute any alcohol or drug abuse patient.[facility] HospitalIn the event this information is protected by the Federal Confidentiality of Alcohol and Drug Abuse Patient Records regulations: The Federal rules restrict any use of the information to criminally investigate or prosecute any alcohol or drug abuse patient.[facility] HospitalIn the event this information is protected by the Federal Confidentiality of Alcohol and Drug Abuse Patient Records regulations: The Federal rules restrict any use of the information to criminally investigate or prosecute any alcohol or drug abuse patient.[facility] HospitalIn the event this information is protected by the Federal Confidentiality of Alcohol and Drug Abuse Patient Records regulations: The Federal rules restrict any use of the information to criminally investigate or prosecute any alcohol or drug abuse patient.[facility] HospitalIn the event this information is protected by the Federal Confidentiality of Alcohol and Drug Abuse Patient Records regulations: The Federal rules restrict any use of the information to criminally investigate or prosecute any alcohol or drug abuse patient.[facility] HospitalIn the event this information is protected by the Federal Confidentiality of Alcohol and Drug Abuse Patient Records regulations: The Federal rules restrict any use of the information to criminally investigate or prosecute any alcohol or drug abuse patient.[facility] HospitalIn the event this information is protected by the Federal Confidentiality of Alcohol and Drug Abuse Patient Records regulations: The Federal rules restrict any use of the information to criminally investigate or prosecute any alcohol or drug abuse patient.[facility] HospitalIn the event this information is protected by the Federal Confidentiality of Alcohol and Drug Abuse Patient Records regulations: The Federal rules restrict any use of the information to criminally investigate or prosecute any alcohol or drug abuse patient.[facility] HospitalIn the event this information is protected by the Federal Confidentiality of Alcohol and Drug Abuse Patient Records regulations: The Federal rules restrict any use of the information to criminally investigate or prosecute any alcohol or drug abuse patient.[facility] HospitalIn the event this information is protected by the Federal Confidentiality of Alcohol and Drug Abuse Patient Records regulations: The Federal rules restrict any use of the information to criminally investigate or prosecute any alcohol or drug abuse patient.[facility] HospitalIn the event this information is protected by the Federal Confidentiality of Alcohol and Drug Abuse Patient Records regulations: The Federal rules restrict any use of the information to criminally investigate or prosecute any alcohol or drug abuse patient.[facility] HospitalIn the event this information is protected by the Federal Confidentiality of Alcohol and Drug Abuse Patient Records regulations: The Federal rules restrict any use of the information to criminally investigate or prosecute any alcohol or drug abuse patient.[facility] HospitalIn the event this information is protected by the Federal Confidentiality of Alcohol and Drug Abuse Patient Records regulations: The Federal rules restrict any use of the information to criminally investigate or prosecute any alcohol or drug abuse patient.[facility] HospitalIn the event this information is protected by the Federal Confidentiality of Alcohol and Drug Abuse Patient Records regulations: The Federal rules restrict any use of the information to criminally investigate or prosecute any alcohol or drug abuse patient.[facility] HospitalIn the event this information is protected by the Federal Confidentiality of Alcohol and Drug Abuse Patient Records regulations: The Federal rules restrict any use of the information to criminally investigate or prosecute any alcohol or drug abuse patient.[facility] HospitalIn the event this information is protected by the Federal Confidentiality of Alcohol and Drug Abuse Patient Records regulations: The Federal rules restrict any use of the information to criminally investigate or prosecute any alcohol or drug abuse patient.[facility] HospitalIn the event this information is protected by the Federal Confidentiality of Alcohol and Drug Abuse Patient Records regulations: The Federal rules restrict any use of the information to criminally investigate or prosecute any alcohol or drug abuse patient.[facility] HospitalIn the event this information is protected by the Federal Confidentiality of Alcohol and Drug Abuse Patient Records regulations: The Federal rules restrict any use of the information to criminally investigate or prosecute any alcohol or drug abuse patient.[facility] HospitalIn the event this information is protected by the Federal Confidentiality of Alcohol and Drug Abuse Patient Records regulations: The Federal rules restrict any use of the information to criminally investigate or prosecute any alcohol or drug abuse patient.[facility] HospitalIn the event this information is protected by the Federal Confidentiality of Alcohol and Drug Abuse Patient Records regulations: The Federal rules restrict any use of the information to criminally investigate or prosecute any alcohol or drug abuse patient.[facility] HospitalIn the event this information is protected by the Federal Confidentiality of Alcohol and Drug Abuse Patient Records regulations: The Federal rules restrict any use of the information to criminally investigate or prosecute any alcohol or drug abuse patient.[facility] HospitalIn the event this information is protected by the Federal Confidentiality of Alcohol and Drug Abuse Patient Records regulations: The Federal rules restrict any use of the information to criminally investigate or prosecute any alcohol or drug abuse patient.[facility] HospitalIn the event this information is protected by the Federal Confidentiality of Alcohol and Drug Abuse Patient Records regulations: The Federal rules restrict any use of the information to criminally investigate or prosecute any alcohol or drug abuse patient.[facility] HospitalIn the event this information is protected by the Federal Confidentiality of Alcohol and Drug Abuse Patient Records regulations: The Federal rules restrict any use of the information to criminally investigate or prosecute any alcohol or drug abuse patient.[facility] HospitalIn the event this information is protected by the Federal Confidentiality of Alcohol and Drug Abuse Patient Records regulations: The Federal rules restrict any use of the information to criminally investigate or prosecute any alcohol or drug abuse patient.[facility] HospitalIn the event this information is protected by the Federal Confidentiality of Alcohol and Drug Abuse Patient Records regulations: The Federal rules restrict any use of the information to criminally investigate or prosecute any alcohol or drug abuse patient.[facility] HospitalIn the event this information is protected by the Federal Confidentiality of Alcohol and Drug Abuse Patient Records regulations: The Federal rules restrict any use of the information to criminally investigate or prosecute any alcohol or drug abuse patient.[facility] HospitalIn the event this information is protected by the Federal Confidentiality of Alcohol and Drug Abuse Patient Records regulations: The Federal rules restrict any use of the information to criminally investigate or prosecute any alcohol or drug abuse patient.[facility] HospitalIn the event this information is protected by the Federal Confidentiality of Alcohol and Drug Abuse Patient Records regulations: The Federal rules restrict any use of the information to criminally investigate or prosecute any alcohol or drug abuse patient.[facility] HospitalIn the event this information is protected by the Federal Confidentiality of Alcohol and Drug Abuse Patient Records regulations: The Federal rules restrict any use of the information to criminally investigate or prosecute any alcohol or drug abuse patient.[facility] HospitalIn the event this information is protected by the Federal Confidentiality of Alcohol and Drug Abuse Patient Records regulations: The Federal rules restrict any use of the information to criminally investigate or prosecute any alcohol or drug abuse patient.[facility] HospitalIn the event this information is protected by the Federal Confidentiality of Alcohol and Drug Abuse Patient Records regulations: The Federal rules restrict any use of the information to criminally investigate or prosecute any alcohol or drug abuse patient.[facility] HospitalIn the event this information is protected by the Federal Confidentiality of Alcohol and Drug Abuse Patient Records regulations: The Federal rules restrict any use of the information to criminally investigate or prosecute any alcohol or drug abuse patient.[facility] HospitalIn the event this information is protected by the Federal Confidentiality of Alcohol and Drug Abuse Patient Records regulations: The Federal rules restrict any use of the information to criminally investigate or prosecute any alcohol or drug abuse patient.[facility] HospitalIn the event this information is protected by the Federal Confidentiality of Alcohol and Drug Abuse Patient Records regulations: The Federal rules restrict any use of the information to criminally investigate or prosecute any alcohol or drug abuse patient.[facility] HospitalIn the event this information is protected by the Federal Confidentiality of Alcohol and Drug Abuse Patient Records regulations: The Federal rules restrict any use of the information to criminally investigate or prosecute any alcohol or drug abuse patient.[facility] HospitalIn the event this information is protected by the Federal Confidentiality of Alcohol and Drug Abuse Patient Records regulations: The Federal rules restrict any use of the information to criminally investigate or prosecute any alcohol or drug abuse patient.[facility] HospitalIn the event this information is protected by the Federal Confidentiality of Alcohol and Drug Abuse Patient Records regulations: The Federal rules restrict any use of the information to criminally investigate or prosecute any alcohol or drug abuse patient.[facility] HospitalIn the event this information is protected by the Federal Confidentiality of Alcohol and Drug Abuse Patient Records regulations: The Federal rules restrict any use of the information to criminally investigate or prosecute any alcohol or drug abuse patient.[facility] HospitalIn the event this information is protected by the Federal Confidentiality of Alcohol and Drug Abuse Patient Records regulations: The Federal rules restrict any use of the information to criminally investigate or prosecute any alcohol or drug abuse patient.[facility] HospitalIn the event this information is protected by the Federal Confidentiality of Alcohol and Drug Abuse Patient Records regulations: The Federal rules restrict any use of the information to criminally investigate or prosecute any alcohol or drug abuse patient.[facility] HospitalIn the event this information is protected by the Federal Confidentiality of Alcohol and Drug Abuse Patient Records regulations: The Federal rules restrict any use of the information to criminally investigate or prosecute any alcohol or drug abuse patient.[facility] HospitalIn the event this information is protected by the Federal Confidentiality of Alcohol and Drug Abuse Patient Records regulations: The Federal rules restrict any use of the information to criminally investigate or prosecute any alcohol or drug abuse patient.[facility] HospitalIn the event this information is protected by the Federal Confidentiality of Alcohol and Drug Abuse Patient Records regulations: The Federal rules restrict any use of the information to criminally investigate or prosecute any alcohol or drug abuse patient.[facility] HospitalIn the event this information is protected by the Federal Confidentiality of Alcohol and Drug Abuse Patient Records regulations: The Federal rules restrict any use of the information to criminally investigate or prosecute any alcohol or drug abuse patient.[facility] HospitalIn the event this information is protected by the Federal Confidentiality of Alcohol and Drug Abuse Patient Records regulations: The Federal rules restrict any use of the information to criminally investigate or prosecute any alcohol or drug abuse patient.[facility] HospitalIn the event this information is protected by the Federal Confidentiality of Alcohol and Drug Abuse Patient Records regulations: The Federal rules restrict any use of the information to criminally investigate or prosecute any alcohol or drug abuse patient.[facility] HospitalIn the event this information is protected by the Federal Confidentiality of Alcohol and Drug Abuse Patient Records regulations: The Federal rules restrict any use of the information to criminally investigate or prosecute any alcohol or drug abuse patient.[facility] HospitalIn the event this information is protected by the Federal Confidentiality of Alcohol and Drug Abuse Patient Records regulations: The Federal rules restrict any use of the information to criminally investigate or prosecute any alcohol or drug abuse patient.[facility] HospitalIn the event this information is protected by the Federal Confidentiality of Alcohol and Drug Abuse Patient Records regulations: The Federal rules restrict any use of the information to criminally investigate or prosecute any alcohol or drug abuse patient.[facility] HospitalIn the event this information is protected by the Federal Confidentiality of Alcohol and Drug Abuse Patient Records regulations: The Federal rules restrict any use of the information to criminally investigate or prosecute any alcohol or drug abuse patient.[facility] HospitalIn the event this information is protected by the Federal Confidentiality of Alcohol and Drug Abuse Patient Records regulations: The Federal rules restrict any use of the information to criminally investigate or prosecute any alcohol or drug abuse patient.[facility] HospitalIn the event this information is protected by the Federal Confidentiality of Alcohol and Drug Abuse Patient Records regulations: The Federal rules restrict any use of the information to criminally investigate or prosecute any alcohol or drug abuse patient.[facility] HospitalIn the event this information is protected by the Federal Confidentiality of Alcohol and Drug Abuse Patient Records regulations: The Federal rules restrict any use of the information to criminally investigate or prosecute any alcohol or drug abuse patient.[facility] HospitalIn the event this information is protected by the Federal Confidentiality of Alcohol and Drug Abuse Patient Records regulations: The Federal rules restrict any use of the information to criminally investigate or prosecute any alcohol or drug abuse patient.[facility] HospitalIn the event this information is protected by the Federal Confidentiality of Alcohol and Drug Abuse Patient Records regulations: The Federal rules restrict any use of the information to criminally investigate or prosecute any alcohol or drug abuse patient.[facility] HospitalIn the event this information is protected by the Federal Confidentiality of Alcohol and Drug Abuse Patient Records regulations: The Federal rules restrict any use of the information to criminally investigate or prosecute any alcohol or drug abuse patient.[facility] HospitalIn the event this information is protected by the Federal Confidentiality of Alcohol and Drug Abuse Patient Records regulations: The Federal rules restrict any use of the information to criminally investigate or prosecute any alcohol or drug abuse patient.[facility] HospitalIn the event this information is protected by the Federal Confidentiality of Alcohol and Drug Abuse Patient Records regulations: The Federal rules restrict any use of the information to criminally investigate or prosecute any alcohol or drug abuse patient.[facility] HospitalIn the event this information is protected by the Federal Confidentiality of Alcohol and Drug Abuse Patient Records regulations: The Federal rules restrict any use of the information to criminally investigate or prosecute any alcohol or drug abuse patient.[facility] HospitalIn the event this information is protected by the Federal Confidentiality of Alcohol and Drug Abuse Patient Records regulations: The Federal rules restrict any use of the information to criminally investigate or prosecute any alcohol or drug abuse patient.[facility] HospitalIn the event this information is protected by the Federal Confidentiality of Alcohol and Drug Abuse Patient Records regulations: The Federal rules restrict any use of the information to criminally investigate or prosecute any alcohol or drug abuse patient.[facility] HospitalIn the event this information is protected by the Federal Confidentiality of Alcohol and Drug Abuse Patient Records regulations: The Federal rules restrict any use of the information to criminally investigate or prosecute any alcohol or drug abuse patient.[facility] HospitalIn the event this information is protected by the Federal Confidentiality of Alcohol and Drug Abuse Patient Records regulations: The Federal rules restrict any use of the information to criminally investigate or prosecute any alcohol or drug abuse patient.[facility] HospitalIn the event this information is protected by the Federal Confidentiality of Alcohol and Drug Abuse Patient Records regulations: The Federal rules restrict any use of the information to criminally investigate or prosecute any alcohol or drug abuse patient.[facility] HospitalIn the event this information is protected by the Federal Confidentiality of Alcohol and Drug Abuse Patient Records regulations: The Federal rules restrict any use of the information to criminally investigate or prosecute any alcohol or drug abuse patient.[facility] HospitalIn the event this information is protected by the Federal Confidentiality of Alcohol and Drug Abuse Patient Records regulations: The Federal rules restrict any use of the information to criminally investigate or prosecute any alcohol or drug abuse patient.[facility] HospitalIn the event this information is protected by the Federal Confidentiality of Alcohol and Drug Abuse Patient Records regulations: The Federal rules restrict any use of the information to criminally investigate or prosecute any alcohol or drug abuse patient.[facility] HospitalIn the event this information is protected by the Federal Confidentiality of Alcohol and Drug Abuse Patient Records regulations: The Federal rules restrict any use of the information to criminally investigate or prosecute any alcohol or drug abuse patient.[facility] HospitalIn the event this information is protected by the Federal Confidentiality of Alcohol and Drug Abuse Patient Records regulations: The Federal rules restrict any use of the information to criminally investigate or prosecute any alcohol or drug abuse patient.[facility] HospitalIn the event this information is protected by the Federal Confidentiality of Alcohol and Drug Abuse Patient Records regulations: The Federal rules restrict any use of the information to criminally investigate or prosecute any alcohol or drug abuse patient.[facility] HospitalIn the event this information is protected by the Federal Confidentiality of Alcohol and Drug Abuse Patient Records regulations: The Federal rules restrict any use of the information to criminally investigate or prosecute any alcohol or drug abuse patient.[facility] HospitalIn the event this information is protected by the Federal Confidentiality of Alcohol and Drug Abuse Patient Records regulations: The Federal rules restrict any use of the information to criminally investigate or prosecute any alcohol or drug abuse patient.[facility] HospitalIn the event this information is protected by the Federal Confidentiality of Alcohol and Drug Abuse Patient Records regulations: The Federal rules restrict any use of the information to criminally investigate or prosecute any alcohol or drug abuse patient.[facility] HospitalIn the event this information is protected by the Federal Confidentiality of Alcohol and Drug Abuse Patient Records regulations: The Federal rules restrict any use of the information to criminally investigate or prosecute any alcohol or drug abuse patient.[facility] HospitalIn the event this information is protected by the Federal Confidentiality of Alcohol and Drug Abuse Patient Records regulations: The Federal rules restrict any use of the information to criminally investigate or prosecute any alcohol or drug abuse patient.[facility] HospitalIn the event this information is protected by the Federal Confidentiality of Alcohol and Drug Abuse Patient Records regulations: The Federal rules restrict any use of the information to criminally investigate or prosecute any alcohol or drug abuse patient.[facility] HospitalIn the event this information is protected by the Federal Confidentiality of Alcohol and Drug Abuse Patient Records regulations: The Federal rules restrict any use of the information to criminally investigate or prosecute any alcohol or drug abuse patient.[facility] HospitalIn the event this information is protected by the Federal Confidentiality of Alcohol and Drug Abuse Patient Records regulations: The Federal rules restrict any use of the information to criminally investigate or prosecute any alcohol or drug abuse patient.[facility] HospitalIn the event this information is protected by the Federal Confidentiality of Alcohol and Drug Abuse Patient Records regulations: The Federal rules restrict any use of the information to criminally investigate or prosecute any alcohol or drug abuse patient.[facility] HospitalIn the event this information is protected by the Federal Confidentiality of Alcohol and Drug Abuse Patient Records regulations: The Federal rules restrict any use of the information to criminally investigate or prosecute any alcohol or drug abuse patient.[facility] HospitalIn the event this information is protected by the Federal Confidentiality of Alcohol and Drug Abuse Patient Records regulations: The Federal rules restrict any use of the information to criminally investigate or prosecute any alcohol or drug abuse patient.[facility] HospitalIn the event this information is protected by the Federal Confidentiality of Alcohol and Drug Abuse Patient Records regulations: The Federal rules restrict any use of the information to criminally investigate or prosecute any alcohol or drug abuse patient.[facility] HospitalIn the event this information is protected by the Federal Confidentiality of Alcohol and Drug Abuse Patient Records regulations: The Federal rules restrict any use of the information to criminally investigate or prosecute any alcohol or drug abuse patient.[facility] HospitalIn the event this information is protected by the Federal Confidentiality of Alcohol and Drug Abuse Patient Records regulations: The Federal rules restrict any use of the information to criminally investigate or prosecute any alcohol or drug abuse patient.[facility] HospitalIn the event this information is protected by the Federal Confidentiality of Alcohol and Drug Abuse Patient Records regulations: The Federal rules restrict any use of the information to criminally investigate or prosecute any alcohol or drug abuse patient.[facility] HospitalIn the event this information is protected by the Federal Confidentiality of Alcohol and Drug Abuse Patient Records regulations: The Federal rules restrict any use of the information to criminally investigate or prosecute any alcohol or drug abuse patient.[facility] HospitalIn the event this information is protected by the Federal Confidentiality of Alcohol and Drug Abuse Patient Records regulations: The Federal rules restrict any use of the information to criminally investigate or prosecute any alcohol or drug abuse patient.[facility] HospitalIn the event this information is protected by the Federal Confidentiality of Alcohol and Drug Abuse Patient Records regulations: The Federal rules restrict any use of the information to criminally investigate or prosecute any alcohol or drug abuse patient.[facility] HospitalIn the event this information is protected by the Federal Confidentiality of Alcohol and Drug Abuse Patient Records regulations: The Federal rules restrict any use of the information to criminally investigate or prosecute any alcohol or drug abuse patient.[facility] HospitalIn the event this information is protected by the Federal Confidentiality of Alcohol and Drug Abuse Patient Records regulations: The Federal rules restrict any use of the information to criminally investigate or prosecute any alcohol or drug abuse patient.[facility] HospitalIn the event this information is protected by the Federal Confidentiality of Alcohol and Drug Abuse Patient Records regulations: The Federal rules restrict any use of the information to criminally investigate or prosecute any alcohol or drug abuse patient.[facility] HospitalIn the event this information is protected by the Federal Confidentiality of Alcohol and Drug Abuse Patient Records regulations: The Federal rules restrict any use of the information to criminally investigate or prosecute any alcohol or drug abuse patient.[facility] HospitalIn the event this information is protected by the Federal Confidentiality of Alcohol and Drug Abuse Patient Records regulations: The Federal rules restrict any use of the information to criminally investigate or prosecute any alcohol or drug abuse patient.[facility] HospitalIn the event this information is protected by the Federal Confidentiality of Alcohol and Drug Abuse Patient Records regulations: The Federal rules restrict any use of the information to criminally investigate or prosecute any alcohol or drug abuse patient.[facility] HospitalIn the event this information is protected by the Federal Confidentiality of Alcohol and Drug Abuse Patient Records regulations: The Federal rules restrict any use of the information to criminally investigate or prosecute any alcohol or drug abuse patient.[facility] HospitalIn the event this information is protected by the Federal Confidentiality of Alcohol and Drug Abuse Patient Records regulations: The Federal rules restrict any use of the information to criminally investigate or prosecute any alcohol or drug abuse patient.[facility] HospitalIn the event this information is protected by the Federal Confidentiality of Alcohol and Drug Abuse Patient Records regulations: The Federal rules restrict any use of the information to criminally investigate or prosecute any alcohol or drug abuse patient.[facility] HospitalIn the event this information is protected by the Federal Confidentiality of Alcohol and Drug Abuse Patient Records regulations: The Federal rules restrict any use of the information to criminally investigate or prosecute any alcohol or drug abuse patient.[facility] HospitalIn the event this information is protected by the Federal Confidentiality of Alcohol and Drug Abuse Patient Records regulations: The Federal rules restrict any use of the information to criminally investigate or prosecute any alcohol or drug abuse patient.[facility] HospitalIn the event this information is protected by the Federal Confidentiality of Alcohol and Drug Abuse Patient Records regulations: The Federal rules restrict any use of the information to criminally investigate or prosecute any alcohol or drug abuse patient.[facility] HospitalIn the event this information is protected by the Federal Confidentiality of Alcohol and Drug Abuse Patient Records regulations: The Federal rules restrict any use of the information to criminally investigate or prosecute any alcohol or drug abuse patient.[facility] HospitalIn the event this information is protected by the Federal Confidentiality of Alcohol and Drug Abuse Patient Records regulations: The Federal rules restrict any use of the information to criminally investigate or prosecute any alcohol or drug abuse patient.[facility] HospitalIn the event this information is protected by the Federal Confidentiality of Alcohol and Drug Abuse Patient Records regulations: The Federal rules restrict any use of the information to criminally investigate or prosecute any alcohol or drug abuse patient.[facility] HospitalIn the event this information is protected by the Federal Confidentiality of Alcohol and Drug Abuse Patient Records regulations: The Federal rules restrict any use of the information to criminally investigate or prosecute any alcohol or drug abuse patient.[facility] HospitalIn the event this information is protected by the Federal Confidentiality of Alcohol and Drug Abuse Patient Records regulations: The Federal rules restrict any use of the information to criminally investigate or prosecute any alcohol or drug abuse patient.[facility] HospitalIn the event this information is protected by the Federal Confidentiality of Alcohol and Drug Abuse Patient Records regulations: The Federal rules restrict any use of the information to criminally investigate or prosecute any alcohol or drug abuse patient.[facility] HospitalIn the event this information is protected by the Federal Confidentiality of Alcohol and Drug Abuse Patient Records regulations: The Federal rules restrict any use of the information to criminally investigate or prosecute any alcohol or drug abuse patient.[facility] HospitalIn the event this information is protected by the Federal Confidentiality of Alcohol and Drug Abuse Patient Records regulations: The Federal rules restrict any use of the information to criminally investigate or prosecute any alcohol or drug abuse patient.[facility] HospitalIn the event this information is protected by the Federal Confidentiality of Alcohol and Drug Abuse Patient Records regulations: The Federal rules restrict any use of the information to criminally investigate or prosecute any alcohol or drug abuse patient.[facility] HospitalIn the event this information is protected by the Federal Confidentiality of Alcohol and Drug Abuse Patient Records regulations: The Federal rules restrict any use of the information to criminally investigate or prosecute any alcohol or drug abuse patient.[facility] HospitalIn the event this information is protected by the Federal Confidentiality of Alcohol and Drug Abuse Patient Records regulations: The Federal rules restrict any use of the information to criminally investigate or prosecute any alcohol or drug abuse patient.[facility] HospitalIn the event this information is protected by the Federal Confidentiality of Alcohol and Drug Abuse Patient Records regulations: The Federal rules restrict any use of the information to criminally investigate or prosecute any alcohol or drug abuse patient.[facility] HospitalIn the event this information is protected by the Federal Confidentiality of Alcohol and Drug Abuse Patient Records regulations: The Federal rules restrict any use of the information to criminally investigate or prosecute any alcohol or drug abuse patient.[facility] HospitalIn the event this information is protected by the Federal Confidentiality of Alcohol and Drug Abuse Patient Records regulations: The Federal rules restrict any use of the information to criminally investigate or prosecute any alcohol or drug abuse patient.[facility] HospitalIn the event this information is protected by the Federal Confidentiality of Alcohol and Drug Abuse Patient Records regulations: The Federal rules restrict any use of the information to criminally investigate or prosecute any alcohol or drug abuse patient.[facility] HospitalIn the event this information is protected by the Federal Confidentiality of Alcohol and Drug Abuse Patient Records regulations: The Federal rules restrict any use of the information to criminally investigate or prosecute any alcohol or drug abuse patient.[facility] HospitalIn the event this information is protected by the Federal Confidentiality of Alcohol and Drug Abuse Patient Records regulations: The Federal rules restrict any use of the information to criminally investigate or prosecute any alcohol or drug abuse patient.[facility] HospitalIn the event this information is protected by the Federal Confidentiality of Alcohol and Drug Abuse Patient Records regulations: The Federal rules restrict any use of the information to criminally investigate or prosecute any alcohol or drug abuse patient.[facility] HospitalIn the event this information is protected by the Federal Confidentiality of Alcohol and Drug Abuse Patient Records regulations: The Federal rules restrict any use of the information to criminally investigate or prosecute any alcohol or drug abuse patient.[facility] HospitalIn the event this information is protected by the Federal Confidentiality of Alcohol and Drug Abuse Patient Records regulations: The Federal rules restrict any use of the information to criminally investigate or prosecute any alcohol or drug abuse patient.[facility] HospitalIn the event this information is protected by the Federal Confidentiality of Alcohol and Drug Abuse Patient Records regulations: The Federal rules restrict any use of the information to criminally investigate or prosecute any alcohol or drug abuse patient.[facility] HospitalIn the event this information is protected by the Federal Confidentiality of Alcohol and Drug Abuse Patient Records regulations: The Federal rules restrict any use of the information to criminally investigate or prosecute any alcohol or drug abuse patient.[facility] HospitalIn the event this information is protected by the Federal Confidentiality of Alcohol and Drug Abuse Patient Records regulations: The Federal rules restrict any use of the information to criminally investigate or prosecute any alcohol or drug abuse patient.[facility] HospitalIn the event this information is protected by the Federal Confidentiality of Alcohol and Drug Abuse Patient Records regulations: The Federal rules restrict any use of the information to criminally investigate or prosecute any alcohol or drug abuse patient.[facility] HospitalIn the event this information is protected by the Federal Confidentiality of Alcohol and Drug Abuse Patient Records regulations: The Federal rules restrict any use of the information to criminally investigate or prosecute any alcohol or drug abuse patient.[facility] HospitalIn the event this information is protected by the Federal Confidentiality of Alcohol and Drug Abuse Patient Records regulations: The Federal rules restrict any use of the information to criminally investigate or prosecute any alcohol or drug abuse patient.[facility] HospitalIn the event this information is protected by the Federal Confidentiality of Alcohol and Drug Abuse Patient Records regulations: The Federal rules restrict any use of the information to criminally investigate or prosecute any alcohol or drug abuse patient.[facility] HospitalIn the event this information is protected by the Federal Confidentiality of Alcohol and Drug Abuse Patient Records regulations: The Federal rules restrict any use of the information to criminally investigate or prosecute any alcohol or drug abuse patient.[facility] HospitalIn the event this information is protected by the Federal Confidentiality of Alcohol and Drug Abuse Patient Records regulations: The Federal rules restrict any use of the information to criminally investigate or prosecute any alcohol or drug abuse patient.[facility] HospitalIn the event this information is protected by the Federal Confidentiality of Alcohol and Drug Abuse Patient Records regulations: The Federal rules restrict any use of the information to criminally investigate or prosecute any alcohol or drug abuse patient.[facility] HospitalIn the event this information is protected by the Federal Confidentiality of Alcohol and Drug Abuse Patient Records regulations: The Federal rules restrict any use of the information to criminally investigate or prosecute any alcohol or drug abuse patient.[facility] HospitalIn the event this information is protected by the Federal Confidentiality of Alcohol and Drug Abuse Patient Records regulations: The Federal rules restrict any use of the information to criminally investigate or prosecute any alcohol or drug abuse patient.[facility] HospitalIn the event this information is protected by the Federal Confidentiality of Alcohol and Drug Abuse Patient Records regulations: The Federal rules restrict any use of the information to criminally investigate or prosecute any alcohol or drug abuse patient.[facility] HospitalIn the event this information is protected by the Federal Confidentiality of Alcohol and Drug Abuse Patient Records regulations: The Federal rules restrict any use of the information to criminally investigate or prosecute any alcohol or drug abuse patient.[facility] HospitalIn the event this information is protected by the Federal Confidentiality of Alcohol and Drug Abuse Patient Records regulations: The Federal rules restrict any use of the information to criminally investigate or prosecute any alcohol or drug abuse patient.[facility] HospitalIn the event this information is protected by the Federal Confidentiality of Alcohol and Drug Abuse Patient Records regulations: The Federal rules restrict any use of the information to criminally investigate or prosecute any alcohol or drug abuse patient.[facility] HospitalIn the event this information is protected by the Federal Confidentiality of Alcohol and Drug Abuse Patient Records regulations: The Federal rules restrict any use of the information to criminally investigate or prosecute any alcohol or drug abuse patient.[facility] HospitalIn the event this information is protected by the Federal Confidentiality of Alcohol and Drug Abuse Patient Records regulations: The Federal rules restrict any use of the information to criminally investigate or prosecute any alcohol or drug abuse patient.[facility] HospitalIn the event this information is protected by the Federal Confidentiality of Alcohol and Drug Abuse Patient Records regulations: The Federal rules restrict any use of the information to criminally investigate or prosecute any alcohol or drug abuse patient.[facility] HospitalIn the event this information is protected by the Federal Confidentiality of Alcohol and Drug Abuse Patient Records regulations: The Federal rules restrict any use of the information to criminally investigate or prosecute any alcohol or drug abuse patient.[facility] HospitalIn the event this information is protected by the Federal Confidentiality of Alcohol and Drug Abuse Patient Records regulations: The Federal rules restrict any use of the information to criminally investigate or prosecute any alcohol or drug abuse patient.[facility] HospitalIn the event this information is protected by the Federal Confidentiality of Alcohol and Drug Abuse Patient Records regulations: The Federal rules restrict any use of the information to criminally investigate or prosecute any alcohol or drug abuse patient.[facility] HospitalIn the event this information is protected by the Federal Confidentiality of Alcohol and Drug Abuse Patient Records regulations: The Federal rules restrict any use of the information to criminally investigate or prosecute any alcohol or drug abuse patient.[facility] HospitalIn the event this information is protected by the Federal Confidentiality of Alcohol and Drug Abuse Patient Records regulations: The Federal rules restrict any use of the information to criminally investigate or prosecute any alcohol or drug abuse patient.[facility] HospitalIn the event this information is protected by the Federal Confidentiality of Alcohol and Drug Abuse Patient Records regulations: The Federal rules restrict any use of the information to criminally investigate or prosecute any alcohol or drug abuse patient.[facility] HospitalIn the event this information is protected by the Federal Confidentiality of Alcohol and Drug Abuse Patient Records regulations: The Federal rules restrict any use of the information to criminally investigate or prosecute any alcohol or drug abuse patient.[facility] HospitalIn the event this information is protected by the Federal Confidentiality of Alcohol and Drug Abuse Patient Records regulations: The Federal rules restrict any use of the information to criminally investigate or prosecute any alcohol or drug abuse patient.[facility] HospitalIn the event this information is protected by the Federal Confidentiality of Alcohol and Drug Abuse Patient Records regulations: The Federal rules restrict any use of the information to criminally investigate or prosecute any alcohol or drug abuse patient.[facility] HospitalIn the event this information is protected by the Federal Confidentiality of Alcohol and Drug Abuse Patient Records regulations: The Federal rules restrict any use of the information to criminally investigate or prosecute any alcohol or drug abuse patient.[facility] HospitalIn the event this information is protected by the Federal Confidentiality of Alcohol and Drug Abuse Patient Records regulations: The Federal rules restrict any use of the information to criminally investigate or prosecute any alcohol or drug abuse patient.[facility] HospitalIn the event this information is protected by the Federal Confidentiality of Alcohol and Drug Abuse Patient Records regulations: The Federal rules restrict any use of the information to criminally investigate or prosecute any alcohol or drug abuse patient.[facility] HospitalIn the event this information is protected by the Federal Confidentiality of Alcohol and Drug Abuse Patient Records regulations: The Federal rules restrict any use of the information to criminally investigate or prosecute any alcohol or drug abuse patient.[facility] HospitalIn the event this information is protected by the Federal Confidentiality of Alcohol and Drug Abuse Patient Records regulations: The Federal rules restrict any use of the information to criminally investigate or prosecute any alcohol or drug abuse patient.[facility] HospitalIn the event this information is protected by the Federal Confidentiality of Alcohol and Drug Abuse Patient Records regulations: The Federal rules restrict any use of the information to criminally investigate or prosecute any alcohol or drug abuse patient.[facility] HospitalIn the event this information is protected by the Federal Confidentiality of Alcohol and Drug Abuse Patient Records regulations: The Federal rules restrict any use of the information to criminally investigate or prosecute any alcohol or drug abuse patient.[facility] HospitalIn the event this information is protected by the Federal Confidentiality of Alcohol and Drug Abuse Patient Records regulations: The Federal rules restrict any use of the information to criminally investigate or prosecute any alcohol or drug abuse patient.[facility] HospitalIn the event this information is protected by the Federal Confidentiality of Alcohol and Drug Abuse Patient Records regulations: The Federal rules restrict any use of the information to criminally investigate or prosecute any alcohol or drug abuse patient.[facility] HospitalIn the event this information is protected by the Federal Confidentiality of Alcohol and Drug Abuse Patient Records regulations: The Federal rules restrict any use of the information to criminally investigate or prosecute any alcohol or drug abuse patient.[facility] HospitalIn the event this information is protected by the Federal Confidentiality of Alcohol and Drug Abuse Patient Records regulations: The Federal rules restrict any use of the information to criminally investigate or prosecute any alcohol or drug abuse patient.[facility] HospitalIn the event this information is protected by the Federal Confidentiality of Alcohol and Drug Abuse Patient Records regulations: The Federal rules restrict any use of the information to criminally investigate or prosecute any alcohol or drug abuse patient.[facility] HospitalIn the event this information is protected by the Federal Confidentiality of Alcohol and Drug Abuse Patient Records regulations: The Federal rules restrict any use of the information to criminally investigate or prosecute any alcohol or drug abuse patient.[facility] HospitalIn the event this information is protected by the Federal Confidentiality of Alcohol and Drug Abuse Patient Records regulations: The Federal rules restrict any use of the information to criminally investigate or prosecute any alcohol or drug abuse patient.[facility] HospitalIn the event this information is protected by the Federal Confidentiality of Alcohol and Drug Abuse Patient Records regulations: The Federal rules restrict any use of the information to criminally investigate or prosecute any alcohol or drug abuse patient.[facility] Reason for Visit (unrecogniz ed section and content) Reason Comments F/U 3 Month Specialty Diagnoses / Procedures Referred By Roula tolentino Referred To Contact Family Medicine / FAMILY MEDICINE Diagnoses Follow-up exam, 3-6 months since previous exam 3 month medication follow up Procedures OFFICE/OUTPATIENT ESTABLISHED HIGH MDM 40 MIN 4C EST Teri Gruber APRN.DELIVERY CLERK [address] [place] [address] Phone: tel: fax: Teri Gruber APRN.DELIVERY CLERK [address] [place] [address] Phone: tel: fax: Referral ID Status Reason Start Date Expiration Date V isits Requested Visits Authorized [id number] Authorized 05/05/2024 04/05/2025 99 99 Reason Comments Anticoagulation Specialty Diagnoses / Procedures Referred By Roula tolentino Referred To Contact [facility] Diagnoses INR needed for tooth extraction. Procedures EST Franc Hughes MD [address] [place] [address] Anticoag [facility] [address] [place] [address] Referral ID Status Reason Start Date Expiration Date V isits Requested Visits Authorized [id number] Pending Review 01/16/2022 04/16/2022 1 1 Reason Onset Date Comments Anticoagulation 06/27/2021 Reason Comments right ear issues 3-5 months Reason Comments Ear Problem Reason Onset Date Comments Anticoagulation 07/24/2021 Reason Onset Date Comments Refill Request 08/07/2021 Reason Comments Patient Question Reason Comments Follow Up Specialty Diagnoses / Procedures Referred By Contact Referred To Contact Internal Medicine / CARDIOVASCULAR MEDICINE Diagnoses Shortness of breath SOB (shortness of breath) [R06.02] Procedures NEW PATIENT VISIT LEVEL 5 NEW CLINICAL PATIENT Iglesia Ansari MD [address] [facility] [place] [address] Mj Dos Santos MD [address] [place] [id number] Referral ID Status Reason Start Date Expiration Date Visits Re quested Visits Authorized [id number] Closed 02/13/2021 04/05/2021 1 1 Reason Comments Results, Lab Home Covid Test Reason Onset Date Comments Anticoagulation 08/22/2021 Reason Comments Ear Problem Blood Pressure Anticoagulation Reason Comments Patient Update Reason Comments Medication Question Reason Onset Date Comments Anticoagulation 09/18/2021 Reason Onset Date Comments Refill Request 09/20/2021 Reason Comments Mouth/Lip Problem pain in chin & gums x 1 week Reason Comments Insurance Authorization Reason Onset Date Comments Refill Request 10/01/2021 Reason Comments ED Follow-up Reason Onset Date Comments Anticoagulation 10/16/2021 Reason Onset Date Comments Anticoagulation 11/01/2021 Reason Comments Consult Colonoscopy Specialty Diagnoses / Procedures Referred By Roula t Referred To Contact General Surgery / GENERAL SURGERY Diagnoses recall 3 ry colonoscopy Procedures EST DDI PATIENT Micah Rosenberg MD [address] [place] [address] Cyndy Parker PA-C [address] [place] [address] Referral ID Status Reason Start Date Expiration Date Visits Re quested Visits Authorized [id number] Closed 11/04/2021 04/05/2022 1 1 Reason Comments F/U 6 months Reason Onset Date Comments Refill Request 11/24/2021 Reason Onset Date Comments Refill Request 11/27/2021 Reason Comments Macular Hole Follow Up S/P PPV OS Specialty Diagnoses / Procedures Referred By Contac t Referred To Contact Ophthalmology / OPHTHALMOLOGY Diagnoses Annual Procedures OFFICE/OUTPATIENT ESTABLISHED HIGH MDM 40-54 MIN EST ADULT Self, MD Mcnamara, Kvng Martines MD [address] [place] [address] Referral ID Status Reason Start Date Expiration Date Visits Re quested Visits Authorized [id number] Closed 11/28/2021 04/05/2022 1 1 Reason Comments Patient Request Reason Onset Date Comments Anticoagulation 12/11/2021 Reason Onset Date Comments Refill Request 12/17/2021 Reason Comments Results Reason Comments Faxed Form Reason Comments Anticoagulation Pt requesting INR results/instructions to be left on his VM Reason Comments Patient Question Patient Update Reason Comments FYI-No Action Needed Reason Onset Date Comments Anticoagulation 01/31/2022 Reason Comments Establish Care Specialty Diagnoses / Procedures Referred By Contac t Referred To Contact Internal Medicine / INTERNAL MEDICINE Diagnoses transferring care Procedures OFFICE/OUTPATIENT ESTABLISHED HIGH MDM 40-54 MIN 4C EST WELL Self Bonnie Sharif APRN.KAI WHAKARURUHAU [address] [place] [address] Referral ID Status Reason Start Date Expiration Date Visits Re quested Visits Authorized [id number] Closed 01/20/2022 04/05/2022 1 1 Reason Comments Medication Problem Reason Comments Orders protime Reason Comments Back Pain Reason Onset Date Comments Refill Request 03/14/2022 Patient Update 03/11/2022 Reason Comments Anticoagulation Reason Onset Date Comments Refill Request 04/04/2022 Reason Comments Coumadin instruction request Reason Comments Lab Orders Reason Comments Phone call to patient Re: Scheduling ECH O Reason Onset Date Comments Refill Request 06/02/2022 Reason Comments Medicare Wellness Exam Recheck Reason Comments Orders Reason Onset Date Comments Refill Request 05/31/2022 Reason Onset Date Comments Refill Request 06/17/2022 Reason Onset Date Comments Refill Request 09/09/2022 Reason Comments Results Reason Comments Opened In Error Reason Onset Date Comments Refill Request 10/13/2022 Refill Request 10/16/2022 Reason Comments standing lab order for INR Reason Onset Date Comments Refill Request 11/04/2022 Reason Comments Medication Update Request Reason Comments New Patient Evaluation Specialty Diagnoses / Procedures Referred By Contac t Referred To Contact Diagnoses Chronic low back pain without sciatica, unspecified back pain laterality Spinal stenosis of lumbar region, unspecified whether neurogenic claudication present Procedures CONSULT TO SPINE SURGERY OFFICE/OUTPATIENT NEW HIGH MDM 60-74 MINUTES Franc Hills MD [address] [place] [address] Referral ID Status Reason Start Date Expiration Date Visits Requested Visits Authorized [id number] Pending Review PCP Requested Referral 09/24/2022 09/24/2023 1 1 Reason Comments Appointment Specialty Diagnoses / Procedures Referred By Contac t Referred To Contact Internal Medicine / INTERNAL MEDICINE Diagnoses 3 Month follow up Procedures 4C EST Self Franc Hills MD [address] [place] [address] Referral ID Status Reason Start Date Expiration Date V isits Requested Visits Authorized [id number] Outside PCP 11/24/2022 02/22/2023 1 1 Reason Comments Patient Update Anticoagulation hold for 11/26/22 Reason Comments Macular Hole Follow Up Specialty Diagnoses / Procedures Referred By Contac t Referred To Contact Ophthalmology / OPHTHALMOLOGY Diagnoses Annual Procedures EST ADULT Self Kvng Mcnamara MD [address] [place] [address] Referral ID Status Reason Start Date Expiration Date V isits Requested Visits Authorized [id number] Outside PCP 12/09/2022 03/09/2023 1 1 Reason Onset Date Comments Refill Request 12/08/2022 Specialty Diagnoses / Procedures Referred By Contac t Referred To Contact Pain Management Diagnoses Chronic low back pain without sciatica, unspecified back pain laterality Hereditary and idiopathic peripheral neuropathy Spinal stenosis of lumbar region, unspecified whether neurogenic claudication present Procedures CONSULT TO PAIN MGT OFFICE/OUTPATIENT NEW HIGH MDM 60-74 MINUTES Franc Hills MD [address] [place] [address] Referral ID Status Reason Start Date Expiration Date Visits Requested Visits Authorized [id number] Pending Review PCP Requested Referral 10/07/2022 10/07/2023 1 1 Reason Comments poor appetite since 12/22/2022. St arted with diarrhea, stomach pain and nausea and vomiting for 3 days. with dark brown emesis but no coffee grounds notedThen constipation started with no appetite continues.Did take a dulcolax that caused diarrhea but still no appetite Reason Comments Information Reason Comments Post Op Reason Onset Date Comments Refill Request 01/29/2023 Reason Onset Date Comments Refill Request 02/08/2023 Reason Comments Patient Question Reason Comments Low BP Reason Onset Date Comments Refill Request 05/06/2023 Reason Onset Date Comments Refill Request 05/13/2023 Reason Comments Fall Reason Comments medication issue Reason Comments ED Follow-up Reason Onset Date Comments Refill Request 05/21/2023 Reason Onset Date Comments Question 05/23/2023 Reason Onset Date Comments Refill Request 05/29/2023 Specialty Diagnoses / Procedures Referred By Roula tolentino Referred To Contact MR IMAGING Diagnoses Lumbar pain Acute bilateral low back pain without sciatica Fall, subsequent encounter Procedures MRI LUMBAR SPINE WO IVCON MRI SPINAL CANAL LUMBAR W/O CONTRAST MATERIAL Zeny Lam APRN.DELIVERY CLERK [address] [place] [address] Mr Imaging [facility] Referral ID Status Reason Start Date Expiration Date V isits Requested Visits Authorized [id number] Closed Auto-Generate d Referral 05/29/2023 09/04/2023 1 1 Reason Comments Orders Back brace Reason Onset Date Comments Refill Request 06/08/2023 Reason Comments Follow Up Follow up- results Reason Comments back pain update Reason Comments New Patient Reason Onset Date Comments Refill Request 06/15/2023 question Reason Comments Refill Request Reason Comments Patient Update Refill Request Reason Comments Patient Question Appointment Reason Comments Back Pain Patient states he titus s fractured spine, experiencing symptoms in muscles, spine, nerves etc., patient wanting to go to one specialist for all four Reason Comments Patient Question Refill Request Reason Comments PT Eval PT Discharge Specialty Diagnoses / Procedures Referred By Contadrianne t Referred To Contact [facility] Diagnoses Chronic low back pain without sciatica, unspecified back pain laterality Compression fracture of L1 vertebra with routine healing, subsequent encounter Sciatic leg pain Procedures CONSULT TO PHYSICAL THERAPY PHYSICAL THERAPY EVALUATION HIGH COMPLEX 45 MINS Zeny Lam APRN.DELIVERY CLERK [address] [place] [address] [facility] [address] [place] [address] Referral ID Status Reason Start Date Expiration Date Visits Requested Visits Authorized [id number] Authorized Auto-Generat ed Referral 04/06/2023 04/05/2024 99 99 Reason Onset Date Comments Refill Request 07/13/2023 Reason Comments ED Follow-up back pain seen in ER 07/15/23 Reason Onset Date Comments Refill Request 07/17/2023 Reason Onset Date Comments Refill Request 07/20/2023 Reason Comments Med Change Request Reason Comments ER F/U Weiss 07/15/2023 fo r back pain/injury from a fall Reason Onset Date Comments Refill Request 08/04/2023 Reason Comments Benign Prostatic Hypertrophy BPH with CHARMAINE TS Specialty Diagnoses / Procedures Referred By Contac t Referred To Contact Urology Diagnoses BPH with obstruction/lower urinary tract symptoms Procedures CONSULT TO UROLOGY OFFICE/OUTPATIENT [facility] 60 MINUTES Franc Hills MD [address] [place] [id number] Referral ID Status Reason Start Date Expiration Date V isits Requested Visits Authorized [id number] Closed PCP Requested Referral 07/18/2023 07/17/2024 1 1 Reason Comments Refill Request Reason Comments Established Patient Reason Onset Date Comments Refill Request 08/12/2023 Reason Onset Date Comments Refill Request 08/18/2023 Reason Comments Recheck medication follow up Weight Loss Reason Comments New Patient Specialty Diagnoses / Procedures Referred By Contac t Referred To Contact Diagnoses Acute bilateral low back pain with bilateral sciatica Compression fracture of L1 vertebra with routine healing, subsequent encounter Chronic low back pain without sciatica, unspecified back pain laterality Procedures CONSULT TO WELLNESS NON-PHARMACOLOGIC PAIN MANAGEMENT OFFICE/OUTPATIENT [facility] 60 MINUTES Zeny Lam APRN.DELIVERY CLERK [address] [place] [address] Referral ID Status Reason Start Date Expiration Date V isits Requested Visits Authorized [id number] Closed PCP Requested Referral 06/29/2023 06/28/2024 1 1 Reason Comments Question Reason Comments Letter Reason Comments Physical with 6 month follow up Reason Onset Date Comments Refill Request 09/30/2023 Reason Comments letter should be coming to provider Reason Onset Date Comments Refill Request 10/06/2023 Reason Onset Date Comments Refill Request 10/29/2023 Reason Comments Patient Update INR Reason Comments Low Back Pain Specialty Diagnoses / Procedures Referred By Contac t Referred To Contact Integrated Medicine / [facility] Diagnoses SIGN AFR* ACUPUNCTURE NEED CONSENT Procedures NEW [place] ACUPUNCTURE Irene Moraes MD [address] [place] [address] Walt Yang R Ac [address] [place] [address] Referral ID Status Reason Start Date Expiration Date Visits Requested Visits Authorized [id number] Authorized Patient Cleared Patient agrees to sign AFR (INN Commercial or OON MA) 11/12/2023 04/05/2024 12 12 Reason Comments Future Appointment Reason Onset Date Comments Refill Request 12/02/2023 Reason Onset Date Comments Refill Request 12/08/2023 Reason Comments Fatigue for about [address] ates blood pressure is all over the place Dizziness Reason Onset Date Comments Refill Request 12/27/2023 Reason Comments Fatigue cold sweats, shortne ss of breath Abdominal Pain constipation to diar anu and small stools in diameter. Reason Comments Radiology XR Specialty Diagnoses / Procedures Referred By Contac t Referred To Contact [facility] Diagnoses Unspecified injury of right wrist, hand and finger(s), initial encounter wrist xr Procedures X-RAY WRIST COMPLET MIN 3 VIEWS wrist xr Kvng Freire APRN.DELIVERY CLERK [address] [place] [address] [facility] [address] [place] [address] Referral ID Status Reason Start Date Expiration Date V isits Requested Visits Authorized [id number] Closed OON/Self Pay Override 01/13/2020 04/05/2020 1 1 Reason Comments ED Follow-up lightheadedness, lexi vated bp [facility] ER 01/08/24 Reason Comments Blood Pressure Anticoagulation Reason Comments blood pressure elevation Reason Comments my chart message converted to phone note , blood pressure is Reason Comments 04/20/2022 EGD [facility] Reason Comments Recheck Reason Onset Date Comments Refill Request 02/14/[address] Specialty Diagnoses / Procedures Referred By Contac t Referred To Contact CT IMAGING Diagnoses Primary hypertension Dizziness Procedures CT BRAIN WO IVCON CT HEAD/BRAIN W/O CONTRAST MATERIAL Zeny Lam, AUTISTIC TEACHER.DELIVERY CLERK [address] [place] [address] [facility] [place] [address] Referral ID Status Reason Start Date Expiration Date V isits Requested Visits Authorized [id number] Closed Auto-Generate d Referral 02/15/2024 03/16/2025 1 1 Reason Onset Date Comments Refill Request 03/04/2024 Reason Onset Date Comments Refill Request 03/15/2024 Reason Comments Patient Question disability placard Reason Comments vaccine question Reason Comments Numbness nail care Reason Comments questions regarding testing Reason Comments Patient Update Patient Question Reason Onset Date Comments Refill Request 06/07/2024 Reason Comments Recheck update of current co nditionSOB with stress test 07/18/24 Reason Onset Date Comments Refill Request 06/24/2024 Reason Onset Date Comments Opened In Error 07/13/2024 Reason Comments Patient Update re: stress test Appointment Patient Question re: Nifedipine Reason Comments Radiology NM Specialty Diagnoses / Procedures Referred By Roula t Referred To Contact [facility] Diagnoses Shortness of breath Procedures NM CARDIAC PERF STRESS/PHARM MYOCARDIAL SPECT MULTIPLE STUDIES Teri Gruber, AUTISTIC TEACHER.DELIVERY CLERK [address] [place] [address] Phone: tel: fax: [facility] [address] [place], [place] [id number] Phone: tel: Referral ID Status Reason Start Date Expiration Date V isits Requested Visits Authorized [id number] Closed Auto-Generate d Referral 05/17/2024 06/16/2025 1 1 Reason Comments Recheck stress test question ing what next step is in figuring out shortness of breathdid look up nefedipine and side effects noted is SOB and cramping in lower legs Reason Comments Spirometry Specialty Diagnoses / Procedures Referred By Contac t Referred To Contact [facility] Diagnoses Shortness of breath Procedures NITRIC OXIDE, EXHALED NITRIC OXIDE GAS DETERMINATION Zeny Lam APRN.DELIVERY CLERK [address] [place] [address] Phone: tel: fax: Res[facility] [address] [address] Referral ID Status Reason Start Date Expiration Date V isits Requested Visits Authorized [id number] Closed Auto-Generate d Referral 07/25/2024 08/24/2025 1 1 Specialty Diagnoses / Procedures Referred By Contac t Referred To Contact [facility] Diagnoses Shortness of breath Procedures SPIROMETRY WITH DILATOR IF OBSTRUCTED BRNCDILAT RSPSE SPMTRY PRE&POST-BRNCDILAT ADMN Zeny Lam APRN.DELIVERY CLERK [address] [place] [address] Phone: tel: fax: Res[facility] [address] [address] Referral ID Status Reason Start Date Expiration Date V isits Requested Visits Authorized [id number] Closed Auto-Generate d Referral 07/25/2024 08/24/2025 1 1 Specialty Diagnoses / Procedures Referred By Contac t Referred To Contact [facility] [place] Diagnoses Shortness of breath Procedures LUNG DIFFUSION CAPACITY (DLCO) DIFFUSING CAPACITY Zeny aLm APRN.DELIVERY CLERK [address] [place] [address] Phone: tel: fax: Res[facility] [address] [address] Referral ID Status Reason Start Date Expiration Date V isits Requested Visits Authorized [id number] Closed Auto-Generate d Referral 07/25/2024 08/24/2025 1 1 Reason Comments Follow Up 6 month follow up Reason Comments Medicare Wellness Exam had seen podiatry and a growth was removed but wound is no healing of left great toe Specialty Diagnoses / Procedures Referred By Contac t Referred To Contact Internal Medicine / INTERNAL MEDICINE Diagnoses Encounter for general adult medical examination without abnormal findings Medicare wellness exam Procedures OFFICE/OUTPATIENT [facility] 60 MINUTES OFFICE/OUTPATIENT ESTABLISHED HIGH MDM 40 MIN 4C EST WELL [facility] [address] [place] [address] Phone: tel: Zeny Lam APRN.DELIVERY CLERK [address] [place] [address] Phone: tel: fax: Referral ID Status Reason Start Date Expiration Date V isits Requested Visits Authorized [id number] Authorized 04/06/2024 04/05/2025 99 99 Reason Onset Date Comments Refill Request 09/05/2024 Reason Onset Date Comments Refill Request 09/08/2024 Reason Onset Date Comments Anticoagulation 09/21/2024 Reason Comments New Patient Dyspnea Reason Comments Medication Question bp reading Reason Comments Patient Update Thank you Reason Comments F/U 3 Month Care Teams (unrecognized sec tion and content) Fishing Gear Mechanic Relationship Specialty Start Date End Date Franc Hills MD [address] [place], [place] [address] PCP - General 05/30/09 Mckinley Jaramillo, DO [address] [place], [place] [id number] Consulting Hematology/Oncology 05/16/14 Mj Dos Santos MD [address] [place] [address] Bi Tri Operator Cardiology 03/01/21 04/17/89 Fishing Gear Mechanic Relationship Specialty Start Date End Date Franc Hills MD [address] [place], [place] [id number] PCP - General 05/30/09 Mckinley Jaramillo, DO [address] [place], [place] [address] Consulting Hematology/Oncology 05/16/14 Mj Dos Santos MD [address] [place] [address] Bi Tri Operator Cardiology 03/01/21 04/17/89 Fishing Gear Mechanic Relationship Specialty Start Date End Date Franc Hills MD [address] [place] [address] PCP - General 05/30/09 Mckinley Jaramillo, DO [address] [facility] [place] [place] [address] Consulting Hematology/Oncology 05/16/14 Mj Dos Santos MD [address] [place] [address] Bi Tri Operator Cardiology 03/01/21 04/17/89 Fishing Gear Mechanic Relationship Specialty Start Date End Date Franc Hills MD [address] [place] [address] PCP - General 05/30/09 Mckinley Jaramillo, DO [address] [place] [address] Consulting Hematology/Oncology 05/16/14 Mj Dos Santos MD [address] [place] [address] Bi Tri Operator Cardiology 03/01/21 04/17/89 Fishing Gear Mechanic Relationship Specialty Start Date End Date Franc Hills MD [address] [place] [address] PCP - General 05/30/09 Mckinley Jaramillo, DO [address] [facility] [place] [address] Consulting Hematology/Oncology 05/16/14 Mj Dos Santos MD [address] [place] [address] Bi Tri Operator Cardiology 03/01/21 04/17/89 Fishing Gear Mechanic Relationship Specialty Start Date End Date Franc Hills MD [address] [place] [address] PCP - General 05/30/09 Mckinley Jaramillo, DO [address] [facility] [place] [address] Consulting Hematology/Oncology 05/16/14 Mj Dos Santos MD [address] [place] [address] Bi Tri Operator Cardiology 03/01/21 04/17/89 Fishing Gear Mechanic Relationship Specialty Start Date End Date Franc Hills MD [address] [place] [address] PCP - General 05/30/09 Mckinley Jaramillo, DO [address] [place] [address] Consulting Hematology/Oncology 05/16/14 Mj Dos Santos MD [address] [place] [address] Bi Tri Operator Cardiology 03/01/21 04/17/89 Fishing Gear Mechanic Relationship Specialty Start Date End Date Franc Hills MD [address] [place] [address] PCP - General 05/30/09 Mckinley Jaramillo, DO [address] [place] [address] Consulting Hematology/Oncology 05/16/14 Mj Dos Santos MD [address] [place] [address] Bi Tri Operator Cardiology 03/01/21 04/17/89 Fishing Gear Mechanic Relationship Specialty Start Date End Date Franc Hills MD [address] [place] [address] PCP - General 05/30/09 Mckinley Jaramillo, DO [address] [place] [address] Consulting Hematology/Oncology 05/16/14 Mj Dos Santos MD [address] [place] [address] Bi Tri Operator Cardiology 03/01/21 04/17/89 Fishing Gear Mechanic Relationship Specialty Start Date End Date Franc Hills MD [address] [place] [address] PCP - General 05/30/09 Mckinley Jaramillo, DO [address] [place] [address] Consulting Hematology/Oncology 05/16/14 Mj Dos Santos MD [address] [place], [place] [id number] Bi Tri Operator Cardiology 03/01/21 04/17/89 Fishing Gear Mechanic Relationship Specialty Start Date End Date Franc Hills MD [address] [place] [address] PCP - General 05/30/09 Mckinley Jaramillo, DO [address] [place] [address] Consulting Hematology/Oncology 05/16/14 Mj Dos Santos MD [address] [place] [address] Bi Tri Operator Cardiology 03/01/21 04/17/89 Fishing Gear Mechanic Relationship Specialty Start Date End Date Franc Hills MD [address] [place] [address] PCP - General 05/30/09 Mckinley Jaramillo, DO [address] [place] [address] Consulting Hematology/Oncology 05/16/14 Mj Dos Santos MD [address] [place] [address] Bi Tri Operator Cardiology 03/01/21 04/17/89 Fishing Gear Mechanic Relationship Specialty Start Date End Date Franc Hills MD [address] [place] [address] PCP - General 05/30/09 Mckinley Jaramillo, DO [address] [place] [address] Consulting Hematology/Oncology 05/16/14 Mj Dos Santos MD [address] [place] [address] Bi Tri Operator Cardiology 03/01/21 04/17/89 Fishing Gear Mechanic Relationship Specialty Start Date End Date Franc Hills MD [address] [place] [address] PCP - General 05/30/09 Mckinley Jaramillo, DO [address] [place] [address] Consulting Hematology/Oncology 05/16/14 Mj Dos Santos MD [address] [place] [address] Bi Tri Operator Cardiology 03/01/21 04/17/89 Fishing Gear Mechanic Relationship Specialty Start Date End Date Franc Hills MD [address] [place] [address] PCP - General 05/30/09 Mckinley Jaramillo, DO [address] [place] [address] Consulting Hematology/Oncology 05/16/14 Mj Dos Santos MD [address] [facility] [place] [address] Bi Tri Operator Cardiology 03/01/21 04/17/89 Fishing Gear Mechanic Relationship Specialty Start Date End Date Franc Hills MD [address] [place] [address] PCP - General 05/30/09 Mckinley Jaramillo, DO [address] [place] [address] Consulting Hematology/Oncology 05/16/14 Mj Dos Santos MD [address] [place] [address] Bi Tri Operator Cardiology 03/01/21 04/17/89 Fishing Gear Mechanic Relationship Specialty Start Date End Date Franc Hills MD [address] [place] [address] PCP - General 05/30/09 Mckinley Jaramillo, DO [address] [place] [address] Consulting Hematology/Oncology 05/16/14 Mj Dos Santos MD [address] [facility] [place] [address] Bi Tri Operator Cardiology 03/01/21 04/17/89 Fishing Gear Mechanic Relationship Specialty Start Date End Date Franc Hills MD [address] [place] [address] PCP - General 05/30/09 Mckinley Jaramillo, DO [address] [place] [address] Consulting Hematology/Oncology 05/16/14 Mj Dos Santos MD [address] [place] [address] Bi Tri Operator Cardiology 03/01/21 04/17/89 Fishing Gear Mechanic Relationship Specialty Start Date End Date Franc Hills MD [address] [place] [address] PCP - General 05/30/09 Mckinley Jaramillo, DO [address] [place] [address] Consulting Hematology/Oncology 05/16/14 Mj Dos Santos MD [address] [place] [address] Bi Tri Operator Cardiology 03/01/21 04/17/89 Fishing Gear Mechanic Relationship Specialty Start Date End Date Franc Hills MD [address] [place] [address] PCP - General 05/30/09 Mckinley Jaramillo, DO [address] [place] [address] Consulting Hematology/Oncology 05/16/14 Mj Dos Santos MD [address] [place] [address] Bi Tri Operator Cardiology 03/01/21 04/17/89 Fishing Gear Mechanic Relationship Specialty Start Date End Date Mani Edwards MD [address] [place] [address] PCP - General Internal Medicine 02/03/22 Mckinley Jaramillo, DO [address] [place] [address] Consulting Hematology/Oncology 05/16/14 Mj Dos Santos MD [address] [place] [address] Bi Tri Operator Cardiology 03/01/21 04/17/89 Fishing Gear Mechanic Relationship Specialty Start Date End Date Mnai Edwards MD [address] [place] [address] PCP - General Internal Medicine 02/03/22 Mckinley Jaramillo, DO [address] [place] [address] Consulting Hematology/Oncology 05/16/14 Mj Dos Santos MD [address] [place] [address] Bi Tri Operator Cardiology 03/01/21 04/17/89 Fishing Gear Mechanic Relationship Specialty Start Date End Date Franc Hills MD [address] [place] [address] PCP - General Internal Medicine 02/11/22 Mckinley Jaramillo, DO [address] [place] [address] Consulting Hematology/Oncology 05/16/14 Mj Dos Santos MD [address] [place] [address] Bi Tri Operator Cardiology 03/01/21 04/17/89 Fishing Gear Mechanic Relationship Specialty Start Date End Date Franc Hills MD [address] [place] [address] PCP - General Internal Medicine 02/11/22 Mckinley Jaramillo, DO [address] [place] [address] Consulting Hematology/Oncology 05/16/14 Mj Dos Santos MD [address] [place] [address] Bi Tri Operator Cardiology 03/01/21 04/17/89 Fishing Gear Mechanic Relationship Specialty Start Date End Date Franc Hills MD [address] [place] [address] PCP - General Internal Medicine 02/11/22 Mckinley Jaramillo, DO [address] [place] [address] Consulting Hematology/Oncology 05/16/14 Mj Dos Santos MD [address] [place] [address] Bi Tri Operator Cardiology 03/01/21 04/17/89 Fishing Gear Mechanic Relationship Specialty Start Date End Date Franc Hills MD [address] [place] [address] PCP - General Internal Medicine 02/11/22 Mckinley Jaramillo, DO [address] [place] [address] Consulting Hematology/Oncology 05/16/14 Mj Dos Santos MD [address] [place] [address] Bi Tri Operator Cardiology 03/01/21 04/17/89 Fishing Gear Mechanic Relationship Specialty Start Date End Date Franc Hills MD [address] [place] [address] PCP - General Internal Medicine 02/11/22 Mckinley Jaramillo, DO [address] [place] [address] Consulting Hematology/Oncology 05/16/14 Mj Dos Santos MD [address] [place], [place] [id number] Bi Tri Operator Cardiology 03/01/21 04/17/89 Fishing Gear Mechanic Relationship Specialty Start Date End Date Franc Hills MD [address] [place] [address] PCP - General Internal Medicine 02/11/22 Mckinley Jaramillo, DO [address] [place] [address] Consulting Hematology/Oncology 05/16/14 Mj Dos Santos MD [address] [place] [address] Bi Tri Operator Cardiology 03/01/21 04/17/89 Fishing Gear Mechanic Relationship Specialty Start Date End Date Franc Hills MD [address] [place] [address] PCP - General Internal Medicine 02/11/22 Mckinley Jaramillo, DO [address] [place] [address] Consulting Hematology/Oncology 05/16/14 Mj Dos Santos MD [address] [place] [address] Bi Tri Operator Cardiology 03/01/21 04/17/89 Fishing Gear Mechanic Relationship Specialty Start Date End Date Franc Hills MD [address] [place] [address] PCP - General Internal Medicine 02/11/22 Mckinley Jaramillo, DO [address] [place] [address] Consulting Hematology/Oncology 05/16/14 Mj Dos Santos MD [address] [place], [place] 5298995 Bi Tri Operator Cardiology 03/01/21 04/17/89 Fishing Gear Mechanic Relationship Specialty Start Date End Date Franc Hills MD [address] [place] [address] PCP - General Internal Medicine 02/11/22 Mckinley Jaramillo, DO [address] [place] [address] Consulting Hematology/Oncology 05/16/14 Mj Dos Santos MD [address] [place] [address] Bi Tri Operator Cardiology 03/01/21 04/17/89 Fishing Gear Mechanic Relationship Specialty Start Date End Date Franc Hills MD [address] [place] [address] PCP - General Internal Medicine 02/11/22 Mckinley Jaramillo, DO [address] [place] [address] Consulting Hematology/Oncology 05/16/14 Mj Dos Santos MD [address] [place] [address] Bi Tri Operator Cardiology 03/01/21 04/17/89 Fishing Gear Mechanic Relationship Specialty Start Date End Date Franc Hills MD [address] [place] [address] PCP - General Internal Medicine 02/11/22 Mckinley Jaramillo, DO [address] [place] [address] Consulting Hematology/Oncology 05/16/14 Mj Dos Santos MD [address] [place] [address] Bi Tri Operator Cardiology 03/01/21 04/17/89 Fishing Gear Mechanic Relationship Specialty Start Date End Date Franc iHlls MD [address] [place] [address] PCP - General Internal Medicine 02/11/22 Mckinley Jaramillo, DO [address] [place] [address] Consulting Hematology/Oncology 05/16/14 Mj Dos Santos MD [address] [place] [address] Bi Tri Operator Cardiology 03/01/21 04/17/89 Fishing Gear Mechanic Relationship Specialty Start Date End Date Franc Hills MD [address] [place] [address] PCP - General Internal Medicine 02/11/22 Mckinley Jaramillo, DO [address] [place] [address] Consulting Hematology/Oncology 05/16/14 Mj Dos Santos MD [address] [place] [address] Bi Tri Operator Cardiology 03/01/21 04/17/89 Fishing Gear Mechanic Relationship Specialty Start Date End Date Franc Hills MD [address] [place] [address] PCP - General Internal Medicine 02/11/22 Mckinley Jaramillo, DO [address] [place] [address] Consulting Hematology/Oncology 05/16/14 Mj Dos Santos MD [address] [place] [address] Bi Tri Operator Cardiology 03/01/21 04/17/89 Fishing Gear Mechanic Relationship Specialty Start Date End Date Franc Hills MD [address] [place] [address] PCP - General Internal Medicine 02/11/22 Mckinley Jaramillo DO [address] [place] [address] Consulting Hematology/Oncology 05/16/14 Mj Dos Santos MD [address] [facility] [place] [address] Bi Tri Operator Cardiology 03/01/21 04/17/89 Fishing Gear Mechanic Relationship Specialty Start Date End Date Franc Hills MD [address] [place] [address] PCP - General Internal Medicine 02/11/22 Mckinley Jaramillo DO [address] [facility] [place] [address] Consulting Hematology/Oncology 05/16/14 Mj Dos Santos MD [address] [place] [address] Bi Tri Operator Cardiology 03/01/21 04/17/89 Fishing Gear Mechanic Relationship Specialty Start Date End Date Franc Hills MD [address] [place] [address] PCP - General Internal Medicine 02/11/22 Mckinley Jaramillo DO [address] [facility] [address] Consulting Hematology/Oncology 05/16/14 Mj Dos Santos MD [address] [place], [place] [address] Bi Tri Operator Cardiology 03/01/21 04/17/89 Fishing Gear Mechanic Relationship Specialty Start Date End Date Franc Hills MD [address] [place], [place] 056501 PCP - General Internal Medicine 02/11/22 Mckinley Jaramillo DO [address] [place], [place] [id number] Consulting Hematology/Oncology 05/16/14 Mj Dos Santos MD [address] [place] [address] Bi Tri Operator Cardiology 03/01/21 04/17/89 Fishing Gear Mechanic Relationship Specialty Start Date End Date Franc Hills MD [address] [place], [place] 966041 PCP - General Internal Medicine 02/11/22 Mckinley Jaramillo DO [address] [facility] [place], [place] [address] Consulting Hematology/Oncology 05/16/14 Mj Dos Santos MD [address] [place], [place] 0985095 Bi Tri Operator Cardiology 03/01/21 04/17/89 Fishing Gear Mechanic Relationship Specialty Start Date End Date Franc Hlils MD [address] [place], [place] 187761 PCP - General Internal Medicine 02/11/22 Mckinley Jaramillo DO [address] [place] [address] Consulting Hematology/Oncology 05/16/14 Mj Dos Santos MD [address] [place] [address] Bi Tri Operator Cardiology 03/01/21 04/17/89 Fishing Gear Mechanic Relationship Specialty Start Date End Date Franc Hills MD [address] [place], [place] 600071 PCP - General Internal Medicine 02/11/22 Mckinley Jaramillo DO [address] [facility] [place] [address] Consulting Hematology/Oncology 05/16/14 Mj Dos Santos MD [address] [place] [address] Bi Tri Operator Cardiology 03/01/21 04/17/89 Fishing Gear Mechanic Relationship Specialty Start Date End Date Franc Hills MD [address] [place] [address] PCP - General Internal Medicine 02/11/22 Mckinley Jaramillo DO [address] [place] [address] Consulting Hematology/Oncology 05/16/14 Mj Dos Santos MD [address] [place], [place] 5242495 Bi Tri Operator Cardiology 03/01/21 04/17/89 Fishing Gear Mechanic Relationship Specialty Start Date End Date Franc Hills MD [address] [place], [place] 125631 PCP - General Internal Medicine 02/11/22 11/11/22 Franc Hills MD [address] [place], [place] 466291 PCP - General Internal Medicine 11/12/22 Mckinley Jaramillo DO [address] [place], [place] [id number] Consulting Hematology/Oncology 05/16/14 Mj Dos Santos MD [address] [place] [address] Bi Tri Operator Cardiology 03/01/21 04/17/89 Fishing Gear Mechanic Relationship Specialty Start Date End Date Franc Hills MD [address] [place], [place] 676491 PCP - General Internal Medicine 11/12/22 Mckinley Jaramillo DO [address] [place], [place] 245341 Consulting Hematology/Oncology 05/16/14 Mj Dos Santos MD [address] [place], [place] 8397695 Bi Tri Operator Cardiology 03/01/21 04/17/89 Fishing Gear Mechanic Relationship Specialty Start Date End Date Franc Hills MD [address] [place], [place] 493771 PCP - General Internal Medicine 11/12/22 Mckinley Jaramillo DO [address] [place] [address] Consulting Hematology/Oncology 05/16/14 Mj Dos Santos MD [address] [place] [address] Bi Tri Operator Cardiology 03/01/21 04/17/89 Fishing Gear Mechanic Relationship Specialty Start Date End Date Franc Hills MD [address] [place], [place] 775661 PCP - General Internal Medicine 11/12/22 Mckinley Jaramillo DO [address] [place] [address] Consulting Hematology/Oncology 05/16/14 Mj Dos Santos MD [address] [place] [address] Bi Tri Operator Cardiology 03/01/21 04/17/89 Fishing Gear Mechanic Relationship Specialty Start Date End Date Franc Hills MD [address] [place] [address] PCP - General Internal Medicine 11/12/22 Mckinley Jaramillo DO [address] [facility] [place] [address] Consulting Hematology/Oncology 05/16/14 Mj Dos Santos MD [address] [place] [address] Bi Tri Operator Cardiology 03/01/21 04/17/89 Fishing Gear Mechanic Relationship Specialty Start Date End Date Franc Hills MD [address] [place], [place] 182601 PCP - General Internal Medicine 11/12/22 Mckinley Jaramillo DO [address] [facility] [place], [place] 979851 Consulting Hematology/Oncology 05/16/14 Mj Dos Santos MD [address] [place] [address] Bi Tri Operator Cardiology 03/01/21 04/17/89 Fishing Gear Mechanic Relationship Specialty Start Date End Date Franc Hills MD [address] [place], [place] 695991 PCP - General Internal Medicine 11/12/22 Mckinley Jaramillo DO [address] [place], [place] 84321691 Consulting Hematology/Oncology 05/16/14 Mj Dos Santos MD [address] [place] [address] Bi Tri Operator Cardiology 03/01/21 04/17/89 Fishing Gear Mechanic Relationship Specialty Start Date End Date Franc Hills MD [address] [place], [place] 778811 PCP - General Internal Medicine 11/12/22 Mckinley Jaramillo DO [address] [facility] [place] [address] Consulting Hematology/Oncology 05/16/14 Mj Dos Santos MD [address] [place], [place] 040[address]95 Bi Tri Operator Cardiology 03/01/21 04/17/89 Fishing Gear Mechanic Relationship Specialty Start Date End Date Franc Hills MD [address] [place], [place] 456141 PCP - General Internal Medicine 11/12/22 Mckinley Jaramillo DO [address] [place], [place] 12299691 Consulting Hematology/Oncology 05/16/14 Mj Dos Santos MD [address] [place] [address] Bi Tri Operator Cardiology 03/01/21 04/17/89 Fishing Gear Mechanic Relationship Specialty Start Date End Date Franc Hills MD [address] [place], [place] 097771 PCP - General Internal Medicine 11/12/22 Mckinley Jaramillo DO [address] [place], [place] 680441 Consulting Hematology/Oncology 05/16/14 Mj Dos Santos MD [address] [place] [address] Bi Tri Operator Cardiology 03/01/21 04/17/89 Fishing Gear Mechanic Relationship Specialty Start Date End Date Franc Hills MD [address] [place], [place] 59225691 PCP - General Internal Medicine 11/12/22 Mckinley Jaramillo DO [address] [place] [address] Consulting Hematology/Oncology 05/16/14 Mj Dos Santos MD [address] [place] [address] Bi Tri Operator Cardiology 03/01/21 04/17/89 Fishing Gear Mechanic Relationship Specialty Start Date End Date Franc Hills MD [address] [place] [address] PCP - General Internal Medicine 11/12/22 Mkcinley Jaramillo DO [address] [place] [address] Consulting Hematology/Oncology 05/16/14 Mj Dos Santos MD [address] [place] [address] Bi Tri Operator Cardiology 03/01/21 04/17/89 Fishing Gear Mechanic Relationship Specialty Start Date End Date Franc Hills MD [address] [place] [address] PCP - General Internal Medicine 11/12/22 Mckinley Jaramillo DO [address] [facility] [place], [place] [address]31 Consulting Hematology/Oncology 05/16/14 Mj Dos Santos MD [address] [place], [place] 3776495 Bi Tri Operator Cardiology 03/01/21 04/17/89 Fishing Gear Mechanic Relationship Specialty Start Date End Date Franc Hills MD [address] [place], [place] 809471 PCP - General Internal Medicine 11/12/22 Mckinley Jaramillo DO [address] [place], [place] 689431 Consulting Hematology/Oncology 05/16/14 Mj Dos Santos MD [address] [place] [address] Bi Tri Operator Cardiology 03/01/21 04/17/89 Fishing Gear Mechanic Relationship Specialty Start Date End Date Franc Hills MD [address] [place], [place] 781511 PCP - General Internal Medicine 01/14/23 Mckinley Jaramillo DO [address] [place], [place] 138231 Consulting Hematology/Oncology 05/16/14 Mj Dos Santos MD [address] [place] [address] Bi Tri Operator Cardiology 03/01/21 04/17/89 Fishing Gear Mechanic Relationship Specialty Start Date End Date Franc Hills MD [address] [place], [place] 404901 PCP - General Internal Medicine 01/14/23 Mckinley Jaramillo DO [address] [facility] [place], [place] 160481 Consulting Hematology/Oncology 05/16/14 Mj Dos Santos MD [address] [facility] [place], [place] [address]75[address] Bi Tri Operator Cardiology 03/01/21 04/17/89 Fishing Gear Mechanic Relationship Specialty Start Date End Date Franc Hills MD [address] [place], [place] 644061 PCP - General Internal Medicine 01/14/23 Mckinley Jaramillo DO [address] [place], [place] 82887691 Consulting Hematology/Oncology 05/16/14 Mj Dos Santos MD [address] [place], [place] 6583095 Bi Tri Operator Cardiology 03/01/21 04/17/89 Fishing Gear Mechanic Relationship Specialty Start Date End Date Franc Hills MD [address] [place], [place] 933721 PCP - General Internal Medicine 01/14/23 Mckinley Jaramillo DO [address] [place], [place] 889661 Consulting Hematology/Oncology 05/16/14 Mj Dos Santos MD [address] [place] [address] Bi Tri Operator Cardiology 03/01/21 04/17/89 Fishing Gear Mechanic Relationship Specialty Start Date End Date Zeny Lam APRN.CNP [address] [place], [place] [id number] PCP - General Internal Medicine 01/23/23 Mckinley Jaramillo DO [address] [place] [address] Consulting Hematology/Oncology 05/16/14 Mj Dos Santos MD [address] [place], [place] 9657995 Bi Tri Operator Cardiology 03/01/21 04/17/89 Fishing Gear Mechanic Relationship Specialty Start Date End Date Zeny Lam APRN.DELIVERY CLERK [address] [place] [address] PCP - General Internal Medicine 01/23/23 Mckinley Jaramillo DO [address] [place] [address] Consulting Hematology/Oncology 05/16/14 Mj Dos Santos MD [address] [place] [address] Bi Tri Operator Cardiology 03/01/21 04/17/89 Fishing Gear Mechanic Relationship Specialty Start Date End Date Zeny Lam APRN.DELIVERY CLERK [facility] [place] [address] PCP - General Internal Medicine 01/23/23 Mckinley Jaramillo DO [address] [place] [address] Consulting Hematology/Oncology 05/16/14 Mj Dos Santos MD [address] [place], [place] 0055295 Bi Tri Operator Cardiology 03/01/21 04/17/89 Fishing Gear Mechanic Relationship Specialty Start Date End Date Zeny Lam APRN.DELIVERY CLERK [facility] [place] [address] PCP - General Internal Medicine 01/23/23 Mckinley Jaramillo DO [address] [place] [address] Consulting Hematology/Oncology 05/16/14 Mj Dos Santos MD [address] [facility] [employer] [place], [place] 9726[address] Bi Tri Operator Cardiology 03/01/21 04/17/89 Fishing Gear Mechanic Relationship Specialty Start Date End Date Zeny Lam APRN.DELIVERY CLERK [facility] [place] [address] PCP - General Internal Medicine 01/23/23 Mckinley Jaramillo DO [address] [place], [place] 636431 Consulting Hematology/Oncology 05/16/14 Mj Dos Santos MD [address] [place] [address] Bi Tri Operator Cardiology 03/01/21 04/17/89 Fishing Gear Mechanic Relationship Specialty Start Date End Date Zeny Lam APRN.DELIVERY CLERK [facility] [place] [address] PCP - General Internal Medicine 01/23/23 Mckinley Jaramillo DO [address] [facility] [place] [address] Consulting Hematology/Oncology 05/16/14 Mj Dos Santos MD [address] [place], [place] 2200895 Bi Tri Operator Cardiology 03/01/21 04/17/89 Fishing Gear Mechanic Relationship Specialty Start Date End Date Zeny Lam APRN.DELIVERY CLERK [facility] [place] [address] PCP - General Internal Medicine 01/23/23 Mckinley Jaramillo DO [address] [place], [place] 357571 Consulting Hematology/Oncology 05/16/14 Mj Dos Santos MD [address] [facility] [place], [place] [id number] Bi Tri Operator Cardiology 03/01/21 04/17/89 Fishing Gear Mechanic Relationship Specialty Start Date End Date Zeny Lam APRN.DELIVERY CLERK [address] [place] [address] PCP - General Internal Medicine 01/23/23 Mckinley Jaramillo DO [address] [place] [address] Consulting Hematology/Oncology 05/16/14 Mj Dos Santos MD [address] [facility] [place], [place] [id number] Bi Tri Operator Cardiology 03/01/21 04/17/89 Fishing Gear Mechanic Relationship Specialty Start Date End Date Zeny Lam APRN.DELIVERY CLERK [facility] [place], [place] 604111 PCP - General Internal Medicine 01/23/23 Mckinley Jaramillo DO [address] [place] [address] Consulting Hematology/Oncology 05/16/14 Mj Dos Santos MD [address] [place] [address] Bi Tri Operator Cardiology 03/01/21 04/17/89 Fishing Gear Mechanic Relationship Specialty Start Date End Date Zeny Lam APRN.DELIVERY CLERK [address] [place] [address] PCP - General Internal Medicine 01/23/23 Mckinley Jaramillo DO [address] [place] [address] Consulting Hematology/Oncology 05/16/14 Mj Dos Santos MD [address] [place] [address] Bi Tri Operator Cardiology 03/01/21 04/17/89 Fishing Gear Mechanic Relationship Specialty Start Date End Date Zeny Lam APRN.DELIVERY CLERK [address] [place] [address] PCP - General Internal Medicine 01/23/23 Mckinley Jaramillo DO [address] [place] [address] Consulting Hematology/Oncology 05/16/14 Mj Dos Santos MD [address] [place], [place] [id number] Bi Tri Operator Cardiology 03/01/21 04/17/89 Fishing Gear Mechanic Relationship Specialty Start Date End Date Zeny Lam APRN.DELIVERY CLERK [address] [place] [address] PCP - General Internal Medicine 01/23/23 Mckinley Jaramillo DO [address] [place] [address] Consulting Hematology/Oncology 05/16/14 Mj Dos Santos MD [address] [place] [address] Bi Tri Operator Cardiology 03/01/21 04/17/89 Fishing Gear Mechanic Relationship Specialty Start Date End Date Zeny Lam APRN.DELIVERY CLERK [address] [place] [address] PCP - General Internal Medicine 01/23/23 Mckinley Jaramillo DO [address] [place] [address] Consulting Hematology/Oncology 05/16/14 Mj Dos Santos MD [address] [place] [address] Bi Tri Operator Cardiology 03/01/21 04/17/89 Fishing Gear Mechanic Relationship Specialty Start Date End Date Zeny Lam APRN.DELIVERY CLERK [facility] [place] [address] PCP - General Internal Medicine 01/23/23 Mckinley Jaramillo DO [address] [place], [place] 373881 Consulting Hematology/Oncology 05/16/14 Mj Dos Santos MD [address] [place], [place] [id number] Bi Tri Operator Cardiology 03/01/21 04/17/89 Fishing Gear Mechanic Relationship Specialty Start Date End Date Zeny Lam APRN.DELIVERY CLERK [facility] [place] [address] PCP - General Internal Medicine 01/23/23 Mckinley Jaramillo DO [address] [place] [address] Consulting Hematology/Oncology 05/16/14 Mj Dos Santos MD [address] [place] [address] Bi Tri Operator Cardiology 03/01/21 04/17/89 Fishing Gear Mechanic Relationship Specialty Start Date End Date Zeny Lam APRN.DELIVERY CLERK [address] [place] [address] PCP - General Internal Medicine 01/23/23 Mckinley Jaramillo DO [address] [place] [address] Consulting Hematology/Oncology 05/16/14 Mj Dos Santos MD [address] [place], [place] [id number] Bi Tri Operator Cardiology 03/01/21 04/17/89 Fishing Gear Mechanic Relationship Specialty Start Date End Date Zeny Lam APRN.DELIVERY CLERK [facility] [place] [address] PCP - General Internal Medicine 01/23/23 Mckinley Jaramillo DO [address] [place] [address] Consulting Hematology/Oncology 05/16/14 Mj Dos Santos MD [address] [place], [place] [id number] Bi Tri Operator Cardiology 03/01/21 04/17/89 Fishing Gear Mechanic Relationship Specialty Start Date End Date Zeny Lam APRN.DELIVERY CLERK [facility] [place] [address] PCP - General Internal Medicine 01/23/23 Mckinley Jaramillo DO [address] [place] [address] Consulting Hematology/Oncology 05/16/14 Mj Dos Santos MD [address] [place] [address] Bi Tri Operator Cardiology 03/01/21 04/17/89 Fishing Gear Mechanic Relationship Specialty Start Date End Date Zeny Lam APRN.DELIVERY CLERK [facility] [place] [address] PCP - General Internal Medicine 01/23/23 Mckinley Jaramillo DO [address] [place] [address] Consulting Hematology/Oncology 05/16/14 Mj Dos Santos MD [address] [place], [place] [id number] Bi Tri Operator Cardiology 03/01/21 04/17/89 Fishing Gear Mechanic Relationship Specialty Start Date End Date Zeny Lam APRN.DELIVERY CLERK [address] [place] [address] PCP - General Internal Medicine 01/23/23 Mckinley Jaramillo DO [address] [place] [address] Consulting Hematology/Oncology 05/16/14 Mj Dos Santos MD [address] [place] [address] Bi Tri Operator Cardiology 03/01/21 04/17/89 Fishing Gear Mechanic Relationship Specialty Start Date End Date Zeny Lam APRN.DELIVERY CLERK [facility] [place] [address] PCP - General Internal Medicine 01/23/23 Mckinley Jaramillo DO [address] [place] [address] Consulting Hematology/Oncology 05/16/14 Mj Dos Santos MD [address] [place] [address] Bi Tri Operator Cardiology 03/01/21 04/17/89 Fishing Gear Mechanic Relationship Specialty Start Date End Date Zeny Lam APRN.DELIVERY CLERK [address] [place] [address] PCP - General Internal Medicine 01/23/23 Mckinley Jaramillo DO [address] [place] [address] Consulting Hematology/Oncology 05/16/14 Mj Dos Santos MD [address] [place], [place] [id number] Bi Tri Operator Cardiology 03/01/21 04/17/89 Fishing Gear Mechanic Relationship Specialty Start Date End Date Zeny Lam APRN.DELIVERY CLERK [facility] [place] [address] PCP - General Internal Medicine 01/23/23 Mckinley Jaramillo DO [address] [place] [address] Consulting Hematology/Oncology 05/16/14 Mj Dos Santos MD [address] [place] [address] Bi Tri Operator Cardiology 03/01/21 04/17/89 Fishing Gear Mechanic Relationship Specialty Start Date End Date Zeny Lam APRN.DELIVERY CLERK [address] [place] [address] 1944[address] PCP - General Internal Medicine 01/23/23 Mckinley Jaramillo DO [address] [place] [address] Consulting Hematology/Oncology 05/16/14 Mj Dos Santos MD [address] [place], [place] [id number] Bi Tri Operator Cardiology 03/01/21 04/17/89 Fishing Gear Mechanic Relationship Specialty Start Date End Date Zeny Lam APRN.DELIVERY CLERK [address] [place] [address] PCP - General Internal Medicine 01/23/23 Mckinley Jaramillo DO [address] [place] [address] Consulting Hematology/Oncology 05/16/14 Mj Dos Santos MD [address] [place] [address] Bi Tri Operator Cardiology 03/01/21 04/17/89 Fishing Gear Mechanic Relationship Specialty Start Date End Date Zeny Lam APRN.DELIVERY CLERK [address] [place] [address] PCP - General Internal Medicine 01/23/23 Mckinley Jaramillo DO [address] [place] [address] Consulting Hematology/Oncology 05/16/14 Mj Dos Santos MD [address] [place] [address] Bi Tri Operator Cardiology 03/01/21 04/17/89 Fishing Gear Mechanic Relationship Specialty Start Date End Date Zeny Lam APRN.DELIVERY CLERK [facility] [place] [address] PCP - General Internal Medicine 01/23/23 Mckinley Jaramillo DO [address] [place] [address] Consulting Hematology/Oncology 05/16/14 Mj Dos Santos MD [address] [place], [place] [id number] Bi Tri Operator Cardiology 03/01/21 04/17/89 Fishing Gear Mechanic Relationship Specialty Start Date End Date Zeny Lam APRN.DELIVERY CLERK [address] [place] [address] PCP - General Internal Medicine 01/23/23 Mckinley Jaramillo DO [address] [facility] [place] [address] Consulting Hematology/Oncology 05/16/14 Mj Dos Santos MD [address] [place] [address] Bi Tri Operator Cardiology 03/01/21 04/17/89 Fishing Gear Mechanic Relationship Specialty Start Date End Date Zeny Lam APRN.DELIVERY CLERK [facility] [place] [address] PCP - General Internal Medicine 01/23/23 Mckinley Jaramillo DO [address] [place], [place] 585051 Consulting Hematology/Oncology 05/16/14 Mj Dos Santos MD [address] [place] [address] Bi Tri Operator Cardiology 03/01/21 04/17/89 Fishing Gear Mechanic Relationship Specialty Start Date End Date Zeny Lam APRN.DELIVERY CLERK [address] [place] [address] PCP - General Internal Medicine 01/23/23 Mckinley Jaramillo DO [address] [place] [address] Consulting Hematology/Oncology 05/16/14 Mj Dos Santos MD [address] [facility] [place] [address] Bi Tri Operator Cardiology 03/01/21 04/17/89 Fishing Gear Mechanic Relationship Specialty Start Date End Date Zeny Lam APRN.DELIVERY CLERK [address] [place] [address] PCP - General Internal Medicine 01/23/23 Mckinley Jaramillo DO [address] [place] [address] Consulting Hematology/Oncology 05/16/14 Mj Dos Santos MD [address] [facility] [address] Bi Tri Operator Cardiology 03/01/21 04/17/89 Fishing Gear Mechanic Relationship Specialty Start Date End Date Zeny Lam APRN.DELIVERY CLERK [address] [place] [address] PCP - General Internal Medicine 01/23/23 Mckinley Jaramillo DO [address] [place] [address] Consulting Hematology/Oncology 05/16/14 Mj Dos Santos MD [address] [place] [address] Bi Tri Operator Cardiology 03/01/21 04/17/89 Fishing Gear Mechanic Relationship Specialty Start Date End Date Zeny Lam APRN.DELIVERY CLERK [address] [place] [address] PCP - General Internal Medicine 01/23/23 Mckinley Jaramillo DO [address] [place] [address] Consulting Hematology/Oncology 05/16/14 Mj Dos Santos MD [address] [place] [address] Bi Tri Operator Cardiology 03/01/21 04/17/89 Fishing Gear Mechanic Relationship Specialty Start Date End Date Zeny Lam APRN.DELIVERY CLERK [address] [place] [address] PCP - General Internal Medicine 01/23/23 Mckinley Jaramillo DO [address] [place] [address] Consulting Hematology/Oncology 05/16/14 Mj Dos Santos MD [address] [place] [address] Bi Tri Operator Cardiology 03/01/21 04/17/89 Fishing Gear Mechanic Relationship Specialty Start Date End Date Zeny Lam APRN.DELIVERY CLERK [facility] [place] [address] PCP - General Internal Medicine 01/23/23 Mckinley Jaramillo DO [address] [place] [address] Consulting Hematology/Oncology 05/16/14 Mj Dos Santos MD [address] [place] [address] Bi Tri Operator Cardiology 03/01/21 04/17/89 Fishing Gear Mechanic Relationship Specialty Start Date End Date Zeny Lam APRN.DELIVERY CLERK [address] [place] [address] PCP - General Internal Medicine 01/23/23 Mckinley Jaramillo DO [address] [place] [address] Consulting Hematology/Oncology 05/16/14 Mj Dos Santos MD [address] [place] [address] Bi Tri Operator Cardiology 03/01/21 04/17/89 Fishing Gear Mechanic Relationship Specialty Start Date End Date Zeny Lam APRN.DELIVERY CLERK [facility] [place] [address] PCP - General Internal Medicine 01/23/23 Mckinley Jaramillo DO [address] [place] [address] Consulting Hematology/Oncology 05/16/14 Mj Dos Santos MD [address] [place] [address] Bi Tri Operator Cardiology 03/01/21 04/17/89 Fishing Gear Mechanic Relationship Specialty Start Date End Date Zeny Lam APRN.DELIVERY CLERK [facility] [place] [address] PCP - General Internal Medicine 01/23/23 Mckinley Jaramillo DO [address] [place] [address] Consulting Hematology/Oncology 05/16/14 Mj Dos Santos MD [address] [place] [address] Bi Tri Operator Cardiology 03/01/21 04/17/89 Fishing Gear Mechanic Relationship Specialty Start Date End Date Zeny Lam APRN.DELIVERY CLERK [address] [place] [address] PCP - General Internal Medicine 01/23/23 Mckinley Jaramillo DO [address] [place] [address] Consulting Hematology/Oncology 05/16/14 Mj Dos Santos MD [address] [place] [address] Bi Tri Operator Cardiology 03/01/21 04/17/89 Fishing Gear Mechanic Relationship Specialty Start Date End Date Zeny Lam APRN.DELIVERY CLERK [facility] [place] [address] PCP - General Internal Medicine 01/23/23 Mckinley Jaramillo DO [address] [place] [address] Consulting Hematology/Oncology 05/16/14 Mj Dos Santos MD [address] [place] [address] Bi Tri Operator Cardiology 03/01/21 04/17/89 Fishing Gear Mechanic Relationship Specialty Start Date End Date Zeny Lam APRN.DELIVERY CLERK [address] [place] [address] PCP - General Internal Medicine 01/23/23 Mckinley Jaramillo DO [address] [place] [address] Consulting Hematology/Oncology 05/16/14 Mj Dos Santos MD [address] [place] [address] Bi Tri Operator Cardiology 03/01/21 04/17/89 Fishing Gear Mechanic Relationship Specialty Start Date End Date Zeny Lam APRN.DELIVERY CLERK [facility] [place] [address] PCP - General Internal Medicine 01/23/23 Mckinley Jaramillo DO [address] [place] [address] Consulting Hematology/Oncology 05/16/14 Mj Dos Santos MD [address] [place] [address] Bi Tri Operator Cardiology 03/01/21 04/17/89 Fishing Gear Mechanic Relationship Specialty Start Date End Date Franc Hills MD [address] [place] [address] PCP - General Internal Medicine 11/12/22 01/12/23 Zeny Lam APRN.DELIVERY CLERK [address] [place] [address] PCP - General Internal Medicine 01/13/23 01/13/23 Franc Hills MD [address] [place] [address] PCP - General Internal Medicine 01/14/23 01/22/23 Zeny Lam APRN.DELIVERY CLERK [address] [place] [address] PCP - General Internal Medicine 01/23/23 Mckinley Jaramillo DO [address] [place] [address] Consulting Hematology/Oncology 05/16/14 Mj Dos Santos MD [address] [place], [place] [id number] Bi Tri Operator Cardiology 03/01/21 04/17/89 Fishing Gear Mechanic Relationship Specialty Start Date End Date Franc Hills MD [address] [place], [place] 154361 PCP - General 05/30/09 02/02/22 Mckinley Jaramillo DO [address] [place], [place] 747231 Consulting Hematology/Oncology 05/16/14 Fishing Gear Mechanic Relationship Specialty Start Date End Date Zeny Lam APRN.DELIVERY CLERK [address] [place], [place] 489721 PCP - General Internal Medicine 01/23/23 Mckinley Jaramillo DO [address] [place] [address] Consulting Hematology/Oncology 05/16/14 Mj Dos Santos MD [address] [place] [address] Bi Tri Operator Cardiology 03/01/21 04/17/89 Fishing Gear Mechanic Relationship Specialty Start Date End Date Zeny Lam APRN.DELIVERY CLERK [address] [place] [address] PCP - General Internal Medicine 01/23/23 Mckinley Jaramillo DO [address] [place] [address] Consulting Hematology/Oncology 05/16/14 Mj Dos Santos MD [address] [place] [address] Bi Tri Operator Cardiology 03/01/21 04/17/89 Fishing Gear Mechanic Relationship Specialty Start Date End Date Zeny Lam APRN.DELIVERY CLERK [address] [place] [address] PCP - General Internal Medicine 01/23/23 Mckinley Jaramillo DO [address] [place] [address] Consulting Hematology/Oncology 05/16/14 Mj Dos Santos MD [address] [place] [address] Bi Tri Operator Cardiology 03/01/21 04/17/89 Fishing Gear Mechanic Relationship Specialty Start Date End Date Zeny Lam APRN.DELIVERY CLERK [address] [place] [address] PCP - General Internal Medicine 01/23/23 Mckinley Jaramillo DO [address] [facility] [place] [address] Consulting Hematology/Oncology 05/16/14 Mj Dos Santos MD [address] [place] [address] Bi Tri Operator Cardiology 03/01/21 04/17/89 Fishing Gear Mechanic Relationship Specialty Start Date End Date Zeny Lam APRN.DELIVERY CLERK [address] [place] [address] PCP - General Internal Medicine 01/23/23 Mckinley Jaramillo DO [address] [place] [address] Consulting Hematology/Oncology 05/16/14 Mj Dos Santos MD [address] [place] [address] Bi Tri Operator Cardiology 03/01/21 04/17/89 Fishing Gear Mechanic Relationship Specialty Start Date End Date Zeny Lam APRN.DELIVERY CLERK [address] [place] [address] PCP - General Internal Medicine 01/23/23 Mckinley Jaramillo DO [address] [place] [address] Consulting Hematology/Oncology 05/16/14 Mj Dos Santos MD [address] [place] [address] Bi Tri Operator Cardiology 03/01/21 04/17/89 Fishing Gear Mechanic Relationship Specialty Start Date End Date Zeny Lam APRN.DELIVERY CLERK [address] [place] [address] PCP - General Internal Medicine 01/23/23 Mckinley Jaramillo DO [address] [place] [address] Consulting Hematology/Oncology 05/16/14 Mj Dos Santos MD [address] [place] [address] Bi Tri Operator Cardiology 03/01/21 04/17/89 Fishing Gear Mechanic Relationship Specialty Start Date End Date Zeny Lam, AUTISTIC TEACHER.DELIVERY CLERK [address] [place] [address] PCP - General Internal Medicine 01/23/23 Mckinley Jaramillo DO [address] [place] [address] Consulting Hematology/Oncology 05/16/14 Mj Dos Santos MD [address] [place] [address] Bi Tri Operator Cardiology 03/01/21 04/17/89 Fishing Gear Mechanic Relationship Specialty Start Date End Date Zeny Lam, AUTISTIC TEACHER.DELIVERY CLERK [address] [place] [address] PCP - General Internal Medicine 01/23/23 Mckinley Jaramillo DO [address] [facility] [place] [address] Consulting Hematology/Oncology 05/16/14 Mj Dos Santos MD [address] [place] [address] Bi Tri Operator Cardiology 03/01/21 04/17/89 Fishing Gear Mechanic Relationship Specialty Start Date End Date Zeny Lam APRN.DELIVERY CLERK [address] [place], [place] 937991 PCP - General Internal Medicine 01/23/23 Mckinley Jaramillo DO [address] [place], [place] 733261 Consulting Hematology/Oncology 05/16/14 Mj Dos Santos MD [address] [place] [address] Bi Tri Operator Cardiology 03/01/21 04/17/89 Fishing Gear Mechanic Relationship Specialty Start Date End Date Zeny Lam APRN.DELIVERY CLERK [address] [place] [address] PCP - General Internal Medicine 01/23/23 Mckinley Jaramillo DO [address] [place] [address] Consulting Hematology/Oncology 05/16/14 Mj Dos Santos MD [address] [place] [address] Bi Tri Operator Cardiology 03/01/21 04/17/89 Fishing Gear Mechanic Relationship Specialty Start Date End Date Zeny Lam APRN.DELIVERY CLERK [address] [place] [address] PCP - General Internal Medicine 01/23/23 Mckinley Jaramillo DO [address] [facility] [place] [address] Consulting Hematology/Oncology 05/16/14 Mj Dos Santos MD [address] [place] [address] Bi Tri Operator Cardiology 03/01/21 04/17/89 Fishing Gear Mechanic Relationship Specialty Start Date End Date Zeny Lam APRN.DELIVERY CLERK [address] [place] [address] PCP - General Internal Medicine 01/23/23 Mckinley Jaramillo DO [address] [place] [address] Consulting Hematology/Oncology 05/16/14 Mj Dos Santos MD [address] [place] [address] Bi Tri Operator Cardiology 03/01/21 04/17/89 Fishing Gear Mechanic Relationship Specialty Start Date End Date Zeny Lam APRN.DELIVERY CLERK [address] [place] [address] PCP - General Internal Medicine 01/23/23 Mckinley Jaramillo DO [address] [place] [address] Consulting Hematology/Oncology 05/16/14 Mj Dos Santos MD [address] [place] [address] Bi Tri Operator Cardiology 03/01/21 04/17/89 Fishing Gear Mechanic Relationship Specialty Start Date End Date Zeny Lam APRN.DELIVERY CLERK [address] [place] [address] PCP - General Internal Medicine 01/23/23 Mckinley Jaramillo DO [address] [place] [address] Consulting Hematology/Oncology 05/16/14 Mj Dos Santos MD [address] [place] [address] Bi Tri Operator Cardiology 03/01/21 04/17/89 Fishing Gear Mechanic Relationship Specialty Start Date End Date Zeny Lma AUTISTIC TEACHER.DELIVERY CLERK [address] [place] [address] PCP - General Internal Medicine 01/23/23 Mckinley Jaramillo DO [address] [place], [place] 988618 [phone] Consulting Hematology/Oncology 05/16/14 Mj Dos Santos MD [address] [place] [address] Bi Tri Operator Cardiology 03/01/21 04/17/89 Fishing Gear Mechanic Relationship Specialty Start Date End Date Zeny Lam AUTISTIC TEACHER.DELIVERY CLERK [address] [place] [address] PCP - General Internal Medicine 01/23/23 Mckinley Jaramillo DO [address] [place] [address] Consulting Hematology/Oncology 05/16/14 Mj Dos Santos MD [address] [place] [address] Bi Tri Operator Cardiology 03/01/21 04/17/89 Fishing Gear Mechanic Relationship Specialty Start Date End Date Zeny Lam APRN.DELIVERY CLERK [address] [place], [place] 627701 PCP - General Internal Medicine 01/23/23 Mckinley Jaramillo DO [address] [place], [place] 282131 Consulting Hematology/Oncology 05/16/14 Mj Dos Santos MD [address] [place] [address] Bi Tri Operator Cardiology 03/01/21 04/17/89 Fishing Gear Mechanic Relationship Specialty Start Date End Date Zeny Lam APRN.DELIVERY CLERK [address] [place] [address] PCP - General Internal Medicine 01/23/23 Mckinley Jaramillo DO [address] [place], [place] 754711 Consulting Hematology/Oncology 05/16/14 Mj Dos Santos MD [address] [place] [address] Bi Tri Operator Cardiology 03/01/21 04/17/89 Fishing Gear Mechanic Relationship Specialty Start Date End Date Zeny Lam APRN.DELIVERY CLERK [address] [place] [address] PCP - General Internal Medicine 01/23/23 Mckinley Jaramillo DO [address] [place] [address] Consulting Hematology/Oncology 05/16/14 Mj Dos Santos MD [address] [place], [place] 79217[address] Bi Tri Operator Cardiology 03/01/21 04/17/89 Fishing Gear Mechanic Relationship Specialty Start Date End Date Zeny Lam APRN.DELIVERY CLERK [address] [place], [place] 348483 [phone] PCP - General Internal Medicine 01/23/23 Mckinley Jaramillo DO [address] [facility] [place] [address] Consulting Hematology/Oncology 05/16/14 Mj Dos Santos MD [address] [place] [address] Bi Tri Operator Cardiology 03/01/21 04/17/89 Fishing Gear Mechanic Relationship Specialty Start Date End Date Zeny Lam APRN.DELIVERY CLERK [address] [place] [address] PCP - General Internal Medicine 01/23/23 Mckinley Jaramillo DO [address] [place] [address] Consulting Hematology/Oncology 05/16/14 Mj Dos Santos MD [address] [place] [address] Bi Tri Operator Cardiology 03/01/21 04/17/89 Fishing Gear Mechanic Relationship Specialty Start Date End Date Zeny Lam, AUTISTIC TEACHER.DELIVERY CLERK [address] [place] [address] PCP - General Internal Medicine 01/23/23 Mckinley Jaramillo DO [address] [place] [address] Consulting Hematology/Oncology 05/16/14 Mj Dos Santos MD [address] [place] [address] Bi Tri Operator Cardiology 03/01/21 04/17/89 Fishing Gear Mechanic Relationship Specialty Start Date End Date Zeny Lam, AUTISTIC TEACHER.DELIVERY CLERK [address] [place] [address] PCP - General Internal Medicine 01/23/23 Mckinley Jaramillo DO [address] [place], [place] 579210 [phone] Consulting Hematology/Oncology 05/16/14 Mj Dos Santos MD [address] [place] [address] Bi Tri Operator Cardiology 03/01/21 04/17/89 Fishing Gear Mechanic Relationship Specialty Start Date End Date Zeny Lam, AUTISTIC TEACHER.DELIVERY CLERK [address] [place] [address] PCP - General Internal Medicine 01/23/23 Mckinley Jaramillo DO [address] [place] [address] Consulting Hematology/Oncology 05/16/14 Mj Dos Santos MD [address] [place] [address] Bi Tri Operator Cardiology 03/01/21 04/17/89 Fishing Gear Mechanic Relationship Specialty Start Date End Date Zeny Lam APRN.DELIVERY CLERK [address] [place], [place] 959231 PCP - General Internal Medicine 01/23/23 Mckinley Jaramillo DO [address] [place], [place] 949661 Consulting Hematology/Oncology 05/16/14 Mj Dos Santos MD [address] [facility] [place] [address] Bi Tri Operator Cardiology 03/01/21 04/17/89 Fishing Gear Mechanic Relationship Specialty Start Date End Date Zeny Lam APRN.DELIVERY CLERK [address] [place] [address] PCP - General Internal Medicine 01/23/23 Mckinley Jaramillo DO [address] [place] [address] Consulting Hematology/Oncology 05/16/14 Mj Dos Santos MD [address] [place] [address] Bi Tri Operator Cardiology 03/01/21 04/17/89 Fishing Gear Mechanic Relationship Specialty Start Date End Date Zeny Lam APRN.DELIVERY CLERK [address] [place] [address] PCP - General Internal Medicine 01/23/23 Mckinley Jaramillo DO [address] [place] [address] Consulting Hematology/Oncology 05/16/14 Mj Dos Santos MD [address] [place], [place] 4834995 Bi Tri Operator Cardiology 03/01/21 04/17/89 Fishing Gear Mechanic Relationship Specialty Start Date End Date Zeny Lam APRN.DELIVERY CLERK [address] [place] [address] PCP - General Internal Medicine 01/23/23 Mckinley Jaramillo DO [address] [place] [address] Consulting Hematology/Oncology 05/16/14 Mj Dos Santos MD [address] [place] [address] Bi Tri Operator Cardiology 03/01/21 04/17/89 Fishing Gear Mechanic Relationship Specialty Start Date End Date Zeny Lam APRN.DELIVERY CLERK [address] [place] [address] PCP - General Internal Medicine 01/23/23 Mckinley Jaramillo DO [address] [place] [address] Consulting Hematology/Oncology 05/16/14 Mj Dos Santos MD [address] [place] [address] Bi Tri Operator Cardiology 03/01/21 04/17/89 Fishing Gear Mechanic Relationship Specialty Start Date End Date Zeny Lam APRN.DELIVERY CLERK [address] [place] [address] PCP - General Internal Medicine 01/23/23 Mckinley Jaramillo DO [address] [place] [address] Consulting Hematology/Oncology 05/16/14 Mj Dos Santos MD [address] [facility] [place], [place] [id number] Bi Tri Operator Cardiology 03/01/21 04/17/89 Fishing Gear Mechanic Relationship Specialty Start Date End Date Zeny Lam AUTISTIC TEACHER.DELIVERY CLERK [address] [place] [address] PCP - General Internal Medicine 01/23/23 Mckinley Jaramillo DO [address] [place], [place] [address] Consulting Hematology/Oncology 05/16/14 Mj Dos Santos MD [address] [place] [place] [address] Bi Tri Operator Cardiology 03/01/21 04/17/89 Fishing Gear Mechanic Relationship Specialty Start Date End Date Zeny Lam AUTISTIC TEACHER.DELIVERY CLERK [address] [place] [address] PCP - General Internal Medicine 01/23/23 Mckinley Jaramillo DO [address] [place] [address] Consulting Hematology/Oncology 05/16/14 Mj Dos Santos MD [address] [place] [address] Bi Tri Operator Cardiology 03/01/21 04/17/89 Fishing Gear Mechanic Relationship Specialty Start Date End Date Zeny Lam APRN.DELIVERY CLERK [address] [place], [place] [id number] PCP - General Internal Medicine 01/23/23 Mckinley Jaramillo DO [address] [place] [address] Consulting Hematology/Oncology 05/16/14 Mj Dos Santos MD [address] [place] [address] Bi Tri Operator Cardiology 03/01/21 04/17/89 Goals (unrecognized section and content) Goals may be documented in a n alternate section (unrecognized sect ion and content) No Status Records FoundNo Status Records FoundNo Status Records FoundNo Status Records Found INFORMATION SOURCE (unrecogn ized section and content) DATE CREATED AUTHOR 11/13/2023 [facility] DATE CREATED AUTHOR AUTHOR'S ORGANIZ ATION 02/03/2024 [facility] DATE CREATED AUTHOR AUTHOR'S ORGANIZ ATION 08/20/2024 [facility] DATE CREATED AUTHOR AUTHOR'S ORGANIZ ATION 11/17/2024 [facility] FOR RECORDS PERTAINING TO PATIENTS WHO ARE OR HAVE BEEN ENROLLED IN A CHEMICAL DEPENDENCY/SUBSTANCEABUSE PROGRAM, SOME INFORMATION MAY BE OMITTED. This clinical summary was aggregated from multiple sources. Caution should be exercised in using it in the provision of clinical care. This summary normalizes information from multiple sources, and as a consequence, information in this document may materially change the coding, format and clinical context of patient data. In addition, data may be omitted in some cases. CLINICAL DECISIONS SHOULD BE BASED ON THE PRIMARY CLINICAL RECORDS. [employer] provides no warranty or guarantee of the accuracy or completeness of information in this document.
[2024-11-19 21:07] VITALS: BP 120/78; PULSE 80; O2SAT 96
[2024-11-19 23:00] VITALS: BP 178/90; PULSE 85; RESP 20; O2SAT 93
[2024-11-20] VITALS (10 sets, daily range): BP systolic 126–172; BP diastolic 75–95; PULSE 73–97; RESP 16–20; TEMP 36.6–36.7; O2SAT 90–100; BMI 25.1
[2024-11-20] MEDS: 0.9% Normal Saline (1000mL) 1,000 ML 150 ML IV ×2 (00:37→09:04)
[2024-11-20 00:45] LABS: Differential Indicated SCAN CRITERIA MET; Hematocrit 50.1 % (40-54); Hemoglobin 16.8 g/dL (13.0-16.5); Immature Granulocytes Count 0.040 X10^3/uL (0.0-0.0); Mean Corp Hgb Conc 33.5 g/dL (32-36); Mean Corpuscular Volume 94.2 fL (80-94); Mean Platelet Vol. 10.4 fl (6.2-12.0); NRBC Flagged by Analyzer 0 % (0-5); POSITIVE COUNT YES; Platelet Count 155 K/mm3 (150-450); RBC Distribution Width CV 14.2 % (11.6-14.6); RBC Distribution Width SD 48.7 fl (35.1-43.9); Red Blood Count 5.32 M/mm3 (4.6-6.2); White Blood Count 13.2 K/mm3 (4.4-11.0)
[2024-11-20 00:49] LABS: Prothrombin Time (Protime)PT. 22.7 SECONDS (11.7-14.9)
[2024-11-20 01:04] LABS: Anion Gap 15 (5-15); BUN 15 mg/dL (4-19); BUN/Creat Ratio 17.4 RATIO (10-20); Calcium,Total 9.1 mg/dL (7.6-11.0); Carbon Dioxide 15.4 mmol/L (21.0-32.0); Chloride 110 mmol/L (98-108); Estimated Creatinine Clearance 78.88 ml/min (50-250); Glucose 104 mg/dL (70-99); Potassium 4.6 mmol/L (3.3-5.1)
--- OUTSIDE RECORDS SUMMARY | 2024-11-20 09:40 | XMS RPT_ITS | CCD ---
Author Organization [facility] CliniSyal Care Team Providers Care Blood Bank Laboratory Technician Name Role Phone Reinier LINCOLN, Franc Alegre Primary Care Provider Masci DO Mckinley A Unavailable Raya LINCOLN, Mj Unavailable Masckyung MEYERS, Mckinley A Unavailable Raya LINCOLN, Mj Unavailable Mani Edwards MD Primary Care Provider Reinier LINCOLN, Franc Alegre Primary Care Provider Clint MEYERS Mciknley A Unavailable Reinier LINCOLN, Franc Alegre Primary Care Provider Reinier LINCOLN, Franc Alegre Primary Care Provider [phone] Reinier LINCOLN, Franc Alegre Primary Care Provider [phone] Raya LINCOLN, Mj Unavailable Reinier LINCOLN, Franc Alegre Primary Care Provider [phone] [place] AIR CONDITIONING SUPERVISOR.Zeny GARZA Primary Care Provider [phone] [place] AIR CONDITIONING SUPERVISOR.Zeny GARZA Primary Care Provider [phone] Reinier LINCOLN, Franc Alegre Primary Care Provider [phone] [place] AIR CONDITIONING SUPERVISOR.KAYLA, Zeny Primary Care Provider [phone] Reinier LINCOLN, Franc Alegre Primary Care Provider Reinier LINCOLN, Franc Alegre Primary Care Provider Lisandro Mora Attending Unavailable Franc [place] Primary Care Unavailable Lisandro Mora Attending Unavailable [place] LICENSED MENTAL HEALTH PROFESSIONAL, Zeny Primary Care Unavailable [place] AIR CONDITIONING SUPERVISOR.KAYLA, Zeny Knowles Primary Care Provider [place] AIR CONDITIONING SUPERVISOR.THEATRICAL AGENT, Zeny Primary Care Provider [phone] WALT YANG Attending Unavailable GENARO, ZENY Referring Unavailable GENARO, ZENY Primary Care Unavailable CELIA, MANJUSIBebe Attending Unavailable GENARO, ZENY Referring Unavailable GENARO, ZENY Primary Care Unavailable CELIA, MANJUSIBebe Attending Unavailable IRENE MORAES Referring Unavailable GENARO, [...] Unavailable GENARO, ZENY Primary Care Unavailable MIRLANDE FUENZ Referring Unavailable GENARO, ZENY Primary Care Unavailable [...] Unavailable GENARO, ZENY Primary Care Unavailable YASMANI, TEIR Attending Unavailable GENARO, ZENY Referring Unavailable GENARO, [...] Primary Care Unavailable GENARO, ZENY Attending Unavailable SEARSKVNG Attending Unavailable GENARO, ZENY Primary Care Unavailable [...] Referring Unavailable GENARO, ZENY Primary Care Unavailable Dr. Danielle Han DO Emergency Provider [phone] [facility] LICENSED MENTAL HEALTH PROFESSIONAL-C, [facility] Primary Care Provider Allergies Allergy Classification Reported Allergen(s) Allergy Type Date of Onset Reaction(s) Facility Anti-Epileptic Agents (1 source) gabapentin Drug Allergy 3 Intolerance [facility] Cephalosporins (antibiotic) (1 source) Cephalexin Drug Allergy 5 Rash [facility] cyclobenzaprine (1 source) cyclobenzaprine Drug Allergy 3 Other: See Comments [facility] Work Phone: (20 sources) Cephalexin; Translations: [CEPHALEXIN] Drug Allergy 5 Rash [facility] (20 sources) Warfarin Drug Allergy 0 Rash [facility] (20 sources) cyclobenzaprine; Translations: [CYCLOBENZAPRINE] Drug Allergy 3 Other: See Comments [facility] Work Phone: (20 sources) gabapentin; Translations: [GABAPENTIN] Drug Allergy 3 Intolerance [facility] Work Phone: Comment on above: dizziness (1 source) Cephalexin Drug Allergy 4 [facility] (1 source) cyclobenzaprine Drug Allergy 4 [facility] (1 source) gabapentin Drug Allergy 4 [facility] Medications Current Medications Medication Drug Class(es) [...] 7 days. 28 tablet 09/05/2024 Active Start: 05-14-2023 End: 11-20-2024 Oxycodone-Acetaminophen (Per cocet) 5-325 mg tablet Discontinued 1 {tbl} PO Q8H as needed for pain 10 3 0 May 14, 2023 November 20, 2024 1:29am Compression fracture of lumbar vertebra Start: 04-17-2023 End: 02-15-2024 take 1 tablet [...] 28 tablet 0 02/23/2023 Active Start: 03-20-2022 End: 11-20-2024 Oxycodone-Acetaminophen 5-32 5 mg tablet Discontinued 1 {tbl} PO NEEDED as needed for Pain March 20, 2022 1:00am November 20, 2024 1:29am Start: 03-20-2022 Oxycodone-Acet aminophen Active 1 TABLET [...] Start: 05-15-2021 take 1 tablet by kandi th every four hours as needed for pain oxyCODONE-acetaminophen (PERCOCET) 5-325 mg tablet Indications: Chronic low back pain without sciatica, unspecified back pain laterality Take 1 tablet by mouth every 4 hours as needed for pain for up to 7 days. 42 tablet 0 05/15/2021 Active Start: 11-24-2018 End: 12-16-2018 Oxycodone-Acetaminophen 1 EA CH tablet Discontinued 1 NMA PO DAILY as needed for Pain November 24, 2018 12:00am December 16, 2018 4:32pm Start: 11-24-2018 End: 12-16-2018 Oxycodone-Acetaminophen Disc ontinued 1 EACH PO DAILY November 23, 2018 11:00pm December 16, 2018 3:32pm Start: 07-06-2013 End: 05-09-2014 Oxycodone-Acetaminophen (Per cocet 10-325 Mg Tablet) 1 EACH tablet Discontinued 1 {tbl} PO TWICE A DAY as needed for back pain July 06, 2013 12:00am May 09, 2014 3:03pm Comment on above: Take 1 tablet by kandi th every 4 hours as needed for pain for up to 7 days. Take 1 tablet by kandi th every 6 hours as needed for pain for up to 7 days. Take 1 tablet by kandi th every 6 hours as needed for pain for up to 7 days. Do not start before May 16, 2023. Take 1 tablet by kandi th every 6 hours as needed for pain for up to 7 days. Do not start before July 07, 2023. amoxicillin 875 mg / clavulanate 125 mg oral tablet (3 sources) Penicillin-class Antibacterial Start: 5 End: 5 take 1 tablet by mouth twice daily [...] 2018 12:00am Start: 09-11-2011 End: 09-23-2021 take 1000 mg by mouth once daily Vitamin C Discontinued 1000 mg PO DAILY May 08, 2014 1:00am December 16, 2018 4:29pm End: 06-10-2023 take 2000 [IU] by mouth once daily ascorbic acid (VITAMIN C ORAL) Take 2,000 Units by mouth once daily. 0 06/10/2023 Discontinued take 2000 [IU] by mo [facility] once daily ascorbic acid (VITAMIN C ORAL) Take 2,000 Units by mouth once daily. 0 Active Comment on above: [facility] Take 2,000 Units by mouth once daily. aspirin 81 mg oral tablet (20 sources) Platelet Aggregation Inhibitor, Nonsteroidal Anti-inflammatory Drug Start: 01-10-2021 End: 06-10-2023 take 1 tablet by mouth once daily Aspirin 81 mg Tablet Active 81 mg PO DAILY January 10, 2021 12:00am Start: 03-10-2019 End: 12-10-2021 take 1 tablet by mouth once daily aspirin, enteric coated (ASPIRIN LOW DOSE) 81 mg EC tablet Take 1 tablet by mouth once daily. 03/10/2019 12/10/2021 Discontinued Comment on above: Take 1 tablet by [facility] once daily. Take by mouth. benoxinate hydrochloride 4 mg/ml / fluorescein sodium [...] fluorescein-benoxinate 0.25- 0.4 % 1 Drop (FLURESS) calcium, elemental, tab (20 sources) Start: 04-26-2013 take 1 tablet by mouth twice daily calcium, elemental, tab Take 600 mg by mouth twice daily. 04/26/2013 Active Start: 04-26-2013 take 1 tablet by kandi th twice daily calcium, elemental, tab Take 600 [...] Discontinued (Adjust Sig - Block E-Cancel) Start: 01-08-2024 End: 11-20-2024 take 0.1-0.2 mg by mouth three times daily as needed Clonidine Hcl 0.1 mg tablet Discontinued 0.1 - 0.2 mg PO THREE TIMES A DAY as needed for SBP>165 15 0 January 08, 2024 9:46pm November 20, 2024 1:30am doxycycline hyclate 100 mg oral capsule (1 source) Tetracycline-class Drug Start: 01-10-2021 take 100 mg by mouth twice daily Doxycycline Hyclate Active 100 MG PO TWICE A DAY 23 01January 10, 2021 12:00am famotidine 40 mg oral tablet (20 sources) Histamine-2 Receptor Antagonist Start: 02-19-2021 End: 09-05-2024 take 1 tablet by mouth once daily Famotidine 40 mg tablet Active 40 mg PO DAILY March 20, 2022 1:00am GERD Start: 12-19-2019 End: 02-08-2020 take 2 tablets by mouth once daily ACID ORACLE FUSION CONSULTANT 20 mg tablet Take 2 tablets by mouth once daily. Famotidine. 12/19/2019 02/08/2020 Discontinued Comment on above: Take 1 tablet by kandi th once daily as needed. 14 actuat fluticasone furoate 0.1 mg/actuat / vilanterol 0.025 mg/actuat dry powder inhaler (8 sources) Corticosteroid, beta2-Adrenergic Agonist Start: take 1 dose by inhalation once daily fluticasone-vilanter ol (BREO ELLIPTA) 100-25 mcg/dose inhaler Inhale 1 inhalation as instructed once daily. 1 each 10/20/2024 Active hydrocortisone 25 mg/ml topical cream (20 sources) Corticosteroid Start: 019 End: hydrocortisone 2.5 % cream Seldom 12/16/2018 Active Comment on above: Seldom iv contrast (will be provided with radiology test) (2 sources) Start: End: iv contrast (will be provided with radiology [...] (20 sources) Angiotensin Converting Enzyme Inhibitor Start: 023 End: 024 take 2 tablets by mouth once daily [...] 2019 12:00am Start: 07-06-2013 End: 11-11-2017 take 1 tablet by mouth once daily Lisinopril 10 MG tablet Discontinued 10 mg PO DAILY July 06, 2013 12:00am November 11, 2017 7:27pm Comment on above: Take 2 tablets by mo uth once daily. Adjust dose as directed based on blood pressure readings LORazepam 2 mg oral tablet (20 sources) Benzodiazepine Start: End: take 2 tablets by mouth at bedtime [...] Discontinued Start: 01-12-2019 End: 03-20-2022 take 1 tablet by mouth at bedtime as needed Lorazepam 1 MG tablet Discontinued 1 mg PO AT BEDTIME NEEDED as needed for Insomnia 10 0 January 12, 2019 6:46pm March 20, 2022 2:30pm Comment on above: Take 1 tablet by [...] once daily. Multivitamin preparation (2 sources) Start: 9 take 2 tablets by mouth once daily Multivitamin Active 2 TABLET PO DAILY December 15, 2018 11:00pm Start: 12-16-2018 take 1 tablet by kandi th once daily Multivitamin Active 1 TABLET PO DAILY December 16, 2018 12:00am Multivitamin tablet (1 source) Start: 12-16-2018 Multivitamin tablet Active 2 {tbl} PO DAILY December 16, 2018 12:00am NIFEdipine 60 mg osmotic 24 hr extended release oral tablet (20 sources) Dihydropyridine Calcium Channel Mark Start: 11-20-2024 take 1 tablet by mouth once daily Nifedipine 60 mg tablet extended release 24hr Active 60 mg PO DAILY November 20, 2024 12:00am Start: 10-25-2024 End: 10-26-2024 take 1 tablet [...] Until Rody 08/11/24 at 2129, Administer for dilation PROTECT FROM [...] take 1 capsule by mouth twice daily Potassium Chloride 10 mEq capsule, extended release Active 10 meq PO TWICE A DAY January 10, 2021 12:00am Start: 09-12-2019 End: 03-05-2020 take 1 capsule by mouth twice daily potassium chloride SR (MICRO-K) 10 mEq CR capsule Indications: Essential hypertension Take 1 capsule by mouth twice daily. 180 capsule 1 09/12/2019 03/05/2020 Discontinued Comment on above: Take 1 capsule by [facility] twice daily. Take 1 tablet by kandi twice daily. proparacaine hydrochloride 5 mg/ml ophthalmic [...] Start: 08-18-2022 take 1 tablet by kandi once daily rosuvastatin (CRESTOR) 20 mg tablet Indications: Mixed hyperlipidemia Take 1 tablet by mouth once daily. 90 tablet 3 08/18/2022 Active Start: 02-13-2022 take 1 tablet by kandi th once daily rosuvastatin (CRESTOR) 20 mg tablet Indications: Mixed hyperlipidemia Take 1 tablet by mouth once daily. 90 tablet 3 02/13/2022 Active Start: 02-13-2022 take 1 tablet by kandi once daily rosuvastatin (CRESTOR) 20 mg tablet [...] Start: 02-13-2022 take 1 tablet by kandi once daily rosuvastatin (CRESTOR) 20 mg tablet [...] 1 09/12/2019 03/07/2020 Discontinued Start: 12-16-2018 take 4 tablets by mo [facility] at bedtime Rosuvastatin (Crestor) 10 mg tablet Active 40 mg PO AT BEDTIME December 16, 2018 4:22pm Start: 12-16-2018 take 2 tablets by mo [facility] at bedtime Rosuvastatin (Crestor) 10 mg tablet Active 20 MG PO AT BEDTIME December 16, 2018 3:22pm Start: 11-24-2018 End: 12-16-2018 take 1 tablet by mouth once daily Rosuvastatin 10 MG tablet Discontinued 10 mg PO DAILY November 24, 2018 12:00am December 16, 2018 4:32pm Comment on above: Take 1 tablet by [facility] once daily. Take 2 tablets by mo [facility] once daily. tropicamide 10 mg/ml ophthalmic solution (4 sources) [...] Drop (MYDR IACYL) ubidecarenone 200 mg oral capsule (20 sources) Start: 12-16-2018 take 10 capsules by mouth once daily Coenzyme Q10 200 mg capsule Active 400 mg PO DAILY December 16, 2018 12:00am Start: 12-16-2018 Coenzyme Q10 A ctive 200 MG PO TWICE A DAY December 16, 2018 12:00am Start: 05-08-2014 End: 12-16-2018 Coenzyme Q10 50 MG tablet,ch ewable Discontinued 50 mg PO TWICE A DAY May 08, 2014 1:00am December 16, 2018 4:26pm coenzyme Q10 (CO ENZYME Q-10) 100 mg [...] tablet (20 sources) Vitamin K Antagonist Start: 11-20-2024 Warfarin 5 mg tablet Active mg PO November 20, 2024 12:00am Start: 02-16-2024 End: 09-05-2024 warfarin (COUMADIN) 5 mg tab let Indications: 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) As directed, [...] take 15 g by mouth once Coumadin 15 MG Discontinued 15 g PO every Thursday, Tu, Th, Sat October 15, 2017 12:00am November 11, 2017 7:29pm Start: 10-15-2017 End: 11-11-2017 take 15 g by mouth once Coumadin Discontinued 15 GM PO every Thursday, , , Sat October 14, 2017 11:00pm November 11, 2017 6:29pm Start: 10-15-2017 End: 11-11-2017 take 15 g by mouth once Coumadin Discontinued 15 GM PO every Thursday, , , Sat October 15, 2017 12:00am November 11, 2017 7:29pm Start: 05-09-2014 End: 11-11-2017 take 2 tablets by mouth once daily Warfarin 5 MG tablet Discontinued 12.5 mg PO MOWEOctober 15, 2017 9:18am November 11, 2017 7:30pm take 2 tabs daily at suppertime Comment on above: Take 2 tabs daily Take 2 tabs daily Mo thru Fridays. Take 1&1/2 tablets Saturdays and [...] Active Comment on above: Take by mouth. B Complex Vitamins (SUPER B-50 COMPLEX) capsule (20 sources) Start: 09-11-2011 End: 12-10-2021 take 1 capsule by mouth once daily B Complex Vitamins (SUPER B-50 COMPLEX) capsule Take 1 capsule by mouth once daily. 0 09/11/2011 12/10/2021 Discontinued Start: 09-11-2011 take 1 capsule by mo uth once daily B Complex Vitamins (SUPER B-50 COMPLEX) capsule Take 1 capsule by mouth once daily. 0 09/11/2011 Active Comment on above: Take 1 capsule by mo uth once daily. Back Brace (BACK SUPPORT S/M) [...] to affe cted area four times daily. Calcium (2 sources) Phosphate Binder, Calcium Start: 03-20-2022 End: 05-14-2023 take 1 tablet by mouth twice daily Calcium 500 mg Tablet Discontinued 500 mg PO TWICE A DAY March 20, 2022 1:00am May 14, 2023 1:11pm Start: 03-20-2022 take 500 mg by mouth twice margaret ly Calcium Active 500 MG PO TWICE A DAY March 20, 2022 12:00am calcium carbonate 1250 mg oral tablet (6 sources) Start: 01-10-2018 End: 12-22-2018 take 2 tablets by mouth once daily Calcium Carbonate 500 MG tablet Discontinued 1000 mg PO DAILY January 10, 2018 12:00am December 22, 2018 12:50pm Start: 01-10-2018 End: 12-22-2018 take 1000 mg by mouth once daily Calcium Carbonate Discontinued 1000 MG PO DAILY January 09, 2018 11:00pm December 22, 2018 11:50am Start: 05-08-2014 End: 11-11-2017 take 1 tablet by mouth once daily Calcium Carbonate 500 MG tablet Discontinued 500 mg PO DAILY@0800 May 08, 2014 1:00am November 11, 2017 7:30pm calcium carbonate 1500 mg / cholecalciferol 800 unt chewable tablet (3 sources) Vitamin D Start: 01-12-2019 End: 05-14-2023 take 1 tablet by mouth once daily Ca-D3-Mag Ih-Zuko-Fxq-Vic-Bor 1 EACH tablet,chewable Discontinued 1 NMA PO DAILY January 12, 2019 12:00am May 14, 2023 1:11pm Start: 01-12-2019 Ca-D3-Mag Ox-Z rdf-Exq-Ihpz-Bor Active 1 EACH PO DAILY January 11, 2019 11:00pm cholecalciferol 0.075 mg oral tablet (20 sources) [...] 0 12/10/2021 Discontinued take 3000 [IU] by mo ut once daily cholecalciferol, vitamin D3, (VITAMIN D3 ORAL) Take 3,000 Units by mouth once daily. 0 Active Comment on above: Take 3,000 Units by mouth once daily. cinnamon bark 500 mg oral capsule (3 sources) Start: 019 End: 019 take 1 capsule by mouth once daily Cinnamon Bark 500 mg capsule Discontinued 500 mg PO DAILY December 16, 2018 12:00am December 22, 2018 12:50pm cyclobenzaprine hydrochloride 10 mg oral tablet (1 [...] above: Take 1 tablet by kandi th three times daily as needed for muscle spasm (and back pain.). DULoxetine 30 mg delayed release oral capsule (20 sources) Serotonin and Norepinephrine Reuptake Inhibitor Start: End: take 1 capsule by mouth once daily [...] daily flurazepam hydrochloride 30 mg oral capsule (3 sources) Benzodiazepine Start: 12-17-19 End: 12-23-19 take 1 capsule by mouth at bedtime as needed Flurazepam 30 mg capsule Discontinued 30 mg PO AT BEDTIME as needed December 16, 2018 12:00am December 22, 2018 12:50pm fluticasone propionate 0.05 mg/actuat metered dose nasal spray (16 sources) Corticosteroid Start: 05-09-19 End: 08-23-19 take 2 spray(s) by mouth once daily fluticasone (FLONASE) 50 mcg/actuation nasal spray Indications: Seasonal allergic rhinitis, unspecified trigger Use 2 Sprays in each nostril once daily. Rinse mouth after use. 1 Bottle 11 05/09/2019 08/22/2021 Discontinued Start: 12-16-2018 Fluticasone Pr opionate (Allergy Relief (Fluticasone)) 50 mcg/actuation spray,suspension Active 1 NMA INTRANASAL DAILY December 16, 2018 12:00am Start: 12-16-2018 Fluticasone Pr opionate (Allergy Relief [...] polyethylene glycol 400 10 mg/ml ophthalmic solution (3 sources) Non-Standardized Chemical Allergen Start: 05-08-2014 End: 12-16-2018 take 15 mL into the eye(s) four times daily as needed Peg 278-Tlhvlfkzxeju-Cblmvxoo 15 ML drops Discontinued 2 NMA OP 4 TIMES DAILY NEEDED as needed for Dry Eye May 08, 2014 1:00am December 16, 2018 4:32pm hydroCHLOROthiazide 12.5 mg / lisinopril 20 mg [...] 90 tablet 3 02/03/2022 04/11/2022 Discontinued Start: 11-11-2017 End: 11-20-2024 take 1 tablet by mouth once daily [...] once daily. Take 2 tablets by mo [facility] once daily. hydrOXYzine hydrochloride 25 mg oral tablet (1 source) Antihistamine Start: 08-09-19 End: 07-18-19 21 take 1 tablet by mouth every six hours hydrOXYzine HCl (ATARAX) 25 mg tablet Indications: Rash take 1 tablet by mouth every 6 hours if needed for rash or itching 28 tablet 2 08/09/2019 07/17/2020 Discontinued ketotifen 0.25 mg/ml ophthalmic solution (3 sources) Histamine-1 Receptor Inhibitor Start: 11-25-19 19 End: 12-17-19 19 Ketotifen Fumarate 10 ML drops Discontinued 10 mL OP NEEDED as needed for Allergies November 24, 2018 12:00am December 16, 2018 4:32pm Magnesium (3 sources) Start: 05-08-19 15 End: 11-12-19 18 Magnesium 250 MG tablet Discontinued 1 {tbl} PO TWICE A DAY May 08, 2014 1:00am November 11, 2017 7:30pm Start: 05-08-2014 End: 11-11-2017 take 1 tablet [...] oral capsule (20 sources) Start: 12-16-2018 End: 11-20-2024 take 1 capsule by mouth twice daily Magnesium Oxide 400 mg magnesium capsule Discontinued 400 mg PO TWICE A DAY December 16, 2018 12:00am November 20, 2024 1:29am Start: 12-16-2018 End: 07-25-2024 take 1 capsule by mouth once daily magnesium oxide 400 mg magnesium cap Take 1 capsule by mouth once daily. 02/06/2020 07/25/2024 Discontinued (Course of therapy completed) Comment on above: Take 1 capsule by mo [facility] once daily. melatonin 10 mg oral tablet [...] TAKE BY MOUTH EVERY DAY Multivitamins,Ther W-Minerals (3 sources) Start: 5 End: 9 Multivitamins,Ther W-Minerals Discontinued 1 {tbl} PO DAILY May 08, 2014 1:00am December 16, 2018 4:28pm Start: 05-08-2014 End: 12-16-2018 take 1 tablet [...] omeprazole 40 mg delayed release oral capsule (3 sources) Proton Pump Inhibitor Start: 05-08-2014 End: 11-18-2017 take 1 capsule by mouth once daily Omeprazole 40 MG capsule Discontinued 40 mg PO DAILY May 08, 2014 1:00am November 18, 2017 9:45am pantoprazole 40 mg oral granules (20 sources) Proton Pump Inhibitor Start: 05-14-2023 End: 11-20-2024 take 40 mg by mouth once daily Pantoprazole (Protonix) [address] for susp in packet Discontinued 40 mg PO DAILY May 14, 2023 1:00am November 20, 2024 1:29am Start: 02-02-2023 End: 11-15-2024 take 1 tablet [...] PRIOR TO A MEAL polyethylene glycol 3350 42977 mg powder for oral solution (20 sources) [...] and take as directed. polyethylene glycol 3350 675180 mg / potassium chloride 2970 mg / sodium bicarbonate 6740 mg / sodium chloride 5860 mg / sodium sulfate 29756 mg powder for oral solution (1 source) Osmotic Laxative Start: 11-12-2021 End: 11-12-2021 peg 3350-Electrolytes (GOLYTELY) 236-22.74-6.74 -5.86 gram suspension Indications: Personal history of colonic polyps Take 4,000 mL by mouth one time only for 1 dose. Refer to printed prep instructions from your provider. 4000 mL 0 11/12/2021 11/12/2021 Discontinued Comment on above: Take 4,000 mL by kandi one time only for 1 dose. Refer [...] perfusion imaging agent., Cardiac Procedure Med Orders Emanuel Daley (6 sources) Start: 12-16-2018 End: 11-20-2024 take 1 capsule by mouth twice daily Saw [place] 450 mg capsule Discontinued 450 mg PO TWICE A DAY December 16, 2018 4:25pm November 20, 2024 1:29am Start: 12-16-2018 take 450 mg by mouth twice daily [place] Active 450 MG PO TWICE A DAY December 16, 2018 3:25pm Start: 12-16-2018 take 450 mg by mouth twice daily [place] Active 450 MG PO TWICE A DAY December 16, 2018 4:25pm Start: 05-08-2014 End: 12-16-2018 take 1 capsule by mouth twice daily Saw [place] 450 MG capsule Discontinued 450 mg PO TWICE A DAY May 08, 2014 1:00am December 16, 2018 4:32pm Start: 05-08-2014 End: 12-16-2018 take 450 mg by mouth twice daily [place] Discontinued 450 MG PO TWICE A DAY May 08, 2014 12:00am December 16, 2018 3:32pm Start: 05-08-2014 End: 12-16-2018 take 450 mg by mouth twice daily [place] Discontinued 450 MG PO TWICE A DAY May 08, 2014 1:00am December 16, 2018 4:32pm SAW PALMETTO ORAL (20 sources) End: 07-25-2024 [...] twice daily. simvastatin 10 mg oral tablet (3 sources) HMG-CoA Reductase Inhibitor Start: 4 End: 8 take 1 tablet by mouth at bedtime Simvastatin 10 MG tablet Discontinued 10 mg PO AT BEDTIME July 06, 2013 12:00am November 18, 2017 9:43am tamsulosin hydrochloride 0.4 mg oral capsule (11 [...] hours as needed. take 1 tablet by kanid th every 6 hours if needed Take 1-2 tablets by mouth every 6 hours as needed. Vitamin B Complex Tablet (1 source) Start: 03-20-2022 End: 05-14-2023 Vitamin B Complex Tablet Discontinued 1 {tbl} PO TWICE A DAY March 20, 2022 1:00am May 14, 2023 1:11pm vitamin b12 2.5 mg sublingual tablet (20 sources) Vitamin B12 Start: 05-08-2014 End: 12-16-2018 Cyanocobalamin (Vitamin B-12) 2,500 MCG lozenge Discontinued 5000 ug SL DAILY May 08, 2014 1:00am December 16, 2018 4:32pm Start: 05-08-2014 End: 12-16-2018 Cyanocobalamin (Vitamin B-12 ) Discontinued 5000 MCG SL DAILY May 08, 2014 12:00am December 16, 2018 3:32pm Start: 04-26-2013 End: 11-20-2024 Cyanocobalamin (Vitamin B-12 ) 2,500 mcg lozenge Discontinued 2500 ug SL TWICE A DAY December 16, 2018 4:27pm November 20, 2024 1:30am Comment on above: Dissolve under the t ongue twice daily. 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] 01-16-2024 Chronic Conditions associated with dizziness or vertigo (8 sources) Dizziness; Translations: [Dizziness and giddiness] Onset: 02-02-2024 02-15-2024 Episodic Conduction disorders (20 sources) Left bundle branch block; Translations: [Left bundle-branch block, unspecified] Onset: 05-28-2010 Resolved: 05-18-2013 05-18-2013 Chronic Diabetes mellitus without complication (20 sources) Impaired fasting glycemia; Translations: [Impaired fasting glucose] Onset: 10-11-2008 06-02-2022 Episodic Disorders of lipid metabolism (20 sources) Mixed hyperlipidemia; Translations: [Mixed hyperlipidemia] Onset: 10-05-2008 06-11-2019 Chronic E Codes: Fall (8 sources) Fall; Translations: [Unspecified fall, initial encounter] Episodic Esophageal disorders (20 sources) Gastroesophageal reflux disease; Translations: [Gastro-esophageal reflux disease without esophagitis] Onset: 11-10-2008 Resolved: 10-11-2014 02-17-2014 Chronic Essential hypertension (20 sources) Hypertensive disorder; Translations: [Essential (primary) hypertension] Onset: 07-02-2009 10-26-2019 Chronic Fluid and electrolyte disorders (1 source) Mild dehydration; Translations: [Dehydration] 11-20-2024 Episodic Fracture of lower limb (20 sources) Closed fracture of distal phalanx of great toe; Translations: [Nondisplaced fracture of distal phalanx of right great toe, initial encounter for closed fracture] Onset: 01-16-2021 Resolved: 11-13-2021 01-16-2021 Episodic Genitourinary symptoms and ill-defined conditions (2 sources) Disorder of urinary tract; Translations: [Other difficulties with micturition] 07-27-2023 Episodic Hyperplasia of prostate (20 sources) Benign prostatic hypertrophy with outflow obstruction; Translations: [Benign prostatic hyperplasia with lower urinary tract symptoms] Onset: 09-04-2008 05-05-2016 Chronic Intracranial injury (1 source) Concussion injury of body structure; Translations: [Concussion] 05-22-2023 Episodic Nutritional deficiencies (4 sources) Vitamin D deficiency; Translations: [Vitamin D deficiency, unspecified] Onset: 08-10-2024 02-10-2023 Chronic Occlusion or stenosis of precerebral arteries (20 sources) Left carotid artery stenosis; Translations: [Occlusion and stenosis of left carotid artery] Onset: 06-10-2019 Resolved: 06-11-2019 Chronic Open wounds of extremities (3 sources) Laceration of nail bed of toe; Translations: [Laceration without foreign body of unspecified toe(s) with damage to nail, initial encounter] 01-18-2021 Episodic Other aftercare (20 sources) Long-term current use of anticoagulant; Translations: [FDC (current) use of anticoagulants] Onset: 09-15-2018 Episodic Other and unspecified benign neoplasm (1 source) History of polyp of colon; Translations: [Personal history of colonic polyps] Episodic Other and unspecified benign neoplasm (2 sources) History of adenomatous polyp of colon; Translations: [Personal history of colonic polyps] 03-24-2022 Episodic Other and unspecified benign neoplasm (1 [...] injury of head, subsequent encounter] Episodic Other injuries and conditions due to external causes (1 source) Obstruction of esophagus; Translations: [Food in esophagus causing other injury, initial encounter] 11-20-2024 Episodic Other lower respiratory disease (20 sources) [...] cor pulmonale] Onset: 09-04-2011 Resolved: 04-13-2012 Episodic Comment on above: Recurrent in 2009 an d 2015On warfarin Residual codes; unclassified (20 sources) Insomnia; Translations: [Insomnia, unspecified] Onset: 09-04-2008 04-13-2012 Episodic Retinal detachments; defects; vascular occlusion; and retinopathy (20 sources) Macular hole of left eye; Translations: [Macular cyst, hole, or pseudohole, left eye] Onset: 06-19-2020 Resolved: 06-02-2022 06-19-2020 Chronic Superficial injury; contusion (7 sources) Contusion of head; Translations: [Contusion of unspecified part of head, initial encounter] 05-22-2023 Episodic Unclassified (1 source) PAD (peripheral artery [...] medicament, initial encounter] Onset: 01-06-2024 01-06-2024 Episodic Disorders of teeth and jaw (7 sources) Sore gums; Translations: [Other specified disorders of gingiva and edentulous alveolar ridge] Onset: 12-14-2023 Episodic Gastritis and duodenitis (20 sources) Acute [...] 07-28-2024 05-19-2024 Episodic Other aftercare (1 source) FDC (current) use of anticoagulants; Translations: [FDC (current) use of anticoagulants] Onset: 10-26-2019 Episodic [...] Test Name Value Interpretation Reference Range Facility Absolute lymphocyte countOrd ered By: Danielle Han on 11-20-2024 Lymphocytes Auto (Unsp spec) [#/Vol] 1.61 10*3/uL 0.83-4.51 [facility] Absolute neutrophil countOrd ered By: Danielle Han on 11-20-2024 Neutrophils (Bld) [#/Vol] 11.1 10*3/uL High 2.0-7.7 [facility] Anion gap in Serum or Plasma Ordered By: Danielle Han on 11-20-2024 Anion gap [Moles/Vol] 15 mmol/L 5-15 [facility] Automated lymphocyte count a s percentage of total leukocytesOrdered By: Danielle Han on 11-20-2024 Lymphocytes/100 WBC Auto (Unsp spec) 12.2 % Low 19-41 [facility] BUN/creatinine ratioOrdered By: Danielle Han on 11-20-2024 Urea nitrogen/Creatinine [Mass ratio] 17.4 mg/mg 10-20 [facility] Basophil percentageOrdered B y: Danielle Hna on 11-20-2024 Basophils/100 WBC (Bld) 0.4 % 0-1 [facility] Carbon dioxide, total [Moles /volume] in Central venous bloodOrdered By: Danielle Han on 11-20-2024 CO2 [Moles/Vol] 15.4 mmol/L Low 21.0-32.0 [facility] Chloride assayOrdered By: Leroy Han on 11-20-2024 Chloride [Moles/Vol] 110 mmol/L High 98-108 [facility] Eosinophil percentageOrdered By: Danielle Han on 11-20-2024 Eosinophils/100 WBC (Bld) 0.1 % 0-5 [facility] Erythrocyte distribution wid th ratioOrdered By: Danielle Han on 11-20-2024 Erythrocyte distribution width (RBC) [Ratio] 14.2 % 11.6-14.6 [facility] Erythrocyte distribution wid th standard deviationOrdered By: Danielle Han on 11-20-2024 Erythrocyte distribution width (RBC) [Ratio] 48.7 fl High 35.1-43.9 [facility] Glomerular filtration rate ( GFR) estimation/1.73 sq m using serum, plasma, or whole bOrdered By: Danielle Han on 11-20-2024 GFR/1.73 sq M.predicted among non-blacks MDRD (S/P/Bld) [Vol rate/Area] 88 mL/min/{1.73_m2} >60 [facility] Comment on above: mL/min/1.73m2 CKD-EP I Creatinine Equation (2020) Hematocrit Auto (Bld) [Volum e fraction]Ordered By: Danielle Han on 11-20-2024 Hematocrit (Bld) [Volume fraction] 50.1 % 40-54 [facility] Hemoglobin measurementOrdere d By: Danielle Han on 11-20-2024 Hemoglobin (Bld) [Mass/Vol] 16.8 g/dL High 13.0-16.5 [facility] Immature granulocytes/100 WB C Auto (Bld)Ordered By: Danielle Han on 11-20-2024 Immature granulocytes/100 WBC (Bld) 0.300 % 0.0-0.9 [facility] Comment on above: IG% - Immature Granu locytes (promyelocytes, myelocytes and metamyelocytes) > 1% indicates that a LEFT SHIFT is Present. International normalized rat io (INR) calculationOrdered By: Danielle Han on 11-20-2024 INR Coag (Bld) [Relative time] 2.0 {INR} [facility] MCV (mean corpuscular volume ) determinationOrdered By: Danielle Han on 11-20-2024 MCV (RBC) [Entitic vol] 94.2 fL High 80-94 [facility] Mean corpuscular hemoglobin (MCH) determinationOrdered By: Danielle Han on 11-20-2024 MCH (RBC) [Entitic mass] 31.6 pg 27.0-32.0 [facility] Mean corpuscular hemoglobin concentration (MCHC) determinationOrdered By: Danielle Han on 11-20-2024 MCHC (RBC) [Mass/Vol] 33.5 g/dL 32-36 [facility] Mean platelet volume determi nationOrdered By: Danielle Han on 11-20-2024 Platelet mean volume (Bld) [Entitic vol] 10.4 fL 6.2-12.0 [facility] Monocyte percentageOrdered B y: Danielle Han on 11-20-2024 Monocytes/100 WBC (Bld) 3.3 % 0-10 [facility] Neutrophil percentageOrdered By: Danielle Han on 11-20-2024 Neutrophils/100 WBC (Bld) 83.7 % High 47-70 [facility] Nucleated red blood cell per centageOrdered By: Danielle Han on 11-20-2024 Nucleated RBC/100 WBC (Bld) [Ratio] 0 % 0-5 [facility] Platelet countOrdered By: Leroy Han on 11-20-2024 Platelets (Bld) [#/Vol] 155 10*3/uL 150-450 [facility] Potassium measurement (mass/ volume)Ordered By: Danielle Han on 11-20-2024 Potassium (Unsp spec) [Mass/Vol] 4.6 mmol/L 3.3-5.1 [facility] Comment on above: Hemolysis present, R esults could be affected. Prothrombin timeOrdered By: Danielle Han on 11-20-2024 PT Coag (PPP) [Time] 22.7 s High 11.7-14.9 [facility] RBC Auto (Bld) [#/Vol]Ordere d By: Danielle Han on 11-20-2024 RBC (Bld) [#/Vol] 5.32 10*6/uL 4.6-6.2 [facility] Serum creatinine measurement (mass/volume)Ordered By: Danielle Han on 11-20-2024 Creatinine [Mass/Vol] 0.83 mg/dL 0.70-1.20 [facility] Serum glucose measurement (m ass/volume)Ordered By: Danielle Han on 11-20-2024 Glucose [Mass/Vol] 104 mg/dL High 70-99 [facility] Serum or plasma calcium wilmar urement (mass/volume)Ordered By: Danielle Han on 11-20-2024 Calcium [Mass/Vol] 9.1 mg/dL 7.6-11.0 [facility] Serum or plasma urea nitroge n measurement (mass/volume)Ordered By: Danielle Han on 11-20-2024 Urea nitrogen [Mass/Vol] 15 mg/dL 4-19 [facility] Sodium levelOrdered By: Lacy Han on 11-20-2024 Sodium [Moles/Vol] 140 mmol/L 133-145 [facility] White blood cell (WBC) count Ordered By: Danielle Han on 11-20-2024 WBC (Bld) [#/Vol] 13.2 10*3/uL High 4.4-11.0 [facility] Eosinophils Auto (Bld) [#/Vo l]on 10-20-2024 Eosinophils (Bld) [#/Vol] 0.16 10*3/uL [facility] Interpretation and review of laboratory results Normal [facility] OCT MACULA CIRRUS OU (BOTH E YES)on 08-11-2024 [facility] Radiology Study observation (narrative) [facility] CNOVon 08-09-2024 CNOV Office Visit (WELLME ) ALEX BROOKS ([id number]) 1945 M [facility] Date Time Provider Department 08/09/24 2:00 PM [...] reducing alcohol intake. He was living in [facility] since he was born and moved to [place] for job-related which he regret as business environment and living was not the same. About 10 year ago, he moved to [place] and that was when he started experiencing exacerbation of all the condition. 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 Normal [facility] NITRIC OXIDE, EXHALEDon 05-0 Mariana Barbosa, DORETHA 08/04/2024 12:35 PM RESPIRATORY THERAPY ORAL EXHALED [...] Nitric Oxide (ppb) 08/04/2024 34.0 NAME: Mariana Barbosa, DORETHA PATIENT NAME: Alex Brooks DATE: August 04, 2024 TIME: 12:34 PM [facility] CNOVon 07-26-2024 CNOV Office Visit (ARUNA ) ALEX BROOKS ([id number]) 1945 M [facility] Date Time Provider Department 07/26/24 2:30 PM WALT YANG During your visit today, we recorded the following information about you: Walt Yang R Ac 07/26/2024 4:30 PM Signed Alex Brooks a 78 year [...] reducing alcohol intake. He was living in [facility] since he was born and moved to [place] for job-related which he regret as business environment and living was not the same. About 10 year ago, he moved to [place] and that was when he started experiencing exacerbation of all the condition. 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 [facility] Heart Perfusion W stress and W radionuclide Nataliia 07-18-2024 * * *Final Report* * * DATE OF EXAM: Jul 18 2024 9:55AM [address] CARDIAC PERF STRESS/PHARM / PROCEDURE REASON: Shortness of breath * * * * Physician Interpretation * * * * Stress Clinical Trial Data Manager Report: [facility] Date of service: 07/18/2024 7:00:09 AM Supervising physician: Izabella Moore MD PATIENT: Name: MR. ALEX BROOKS Age: 78 years Gender: M The supervising physician was in the department and immediately available. * * * Final * * * -------- PATIENT: Name: MR. ALEX BROOKS Age: 78 [...] later. See administered radiotracer and doses below. [facility] Date of service: 07/18/2024 7:00:09 AM Ordering [...] * * * Final * * * -------- Stress ECG Report: [facility] Date of service: 07/18/2024 7:00:09 AM Ordering physician: TERI GRUBER soil fertility extension specialist: Tawana Owusu RN Interpreting physician: Izabella [...] 144/70 mmHg. The double product achieved was [id number]. Medications: Last Used NIFEDIPINE 2 Days Resting ECG: Normal Sinus Rhythm and Complete LBBB Symptoms at rest: No symptoms Pharamcologic Protocol: Regadenoson Stress Exercise Table: +-----+---+---+---+ Stage HR SYS EZEKIEL +-----+---+---+---+ 1 83 +-----+---+---+---+ 2 (more content not included)... DIVISION OF RADIOLOGY Provider, [facility] - 07/18/2024 * * *Final Report* * * DATE OF EXAM: Jul 18 2024 9:55AM [facility] 0006 - [place] CARDIAC PERF STRESS/PHARM / PROCEDURE REASON: Shortness of breath * * * * Physician Interpretation * * * * Stress Clinical Trial Data Manager Report: [facility] Date of service: 07/18/2024 7:00:09 AM Supervising physician: Izabella Moore MD PATIENT: Name: MR. ALEX BROOKS Age: 78 years Gender: M The supervising physician was in the department and immediately available. * * * Final * * * -------- PATIENT: Name: MR. ALEX BROOKS Age: 78 [...] later. See administered radiotracer and doses below. [facility] Date of service: 07/18/2024 7:00:09 AM Ordering [...] * * * Final * * * -------- Stress ECG Report: [facility] Date of service: 07/18/2024 7:00:09 AM Ordering physician: TERI GRUBER soil fertility extension specialist: Tawana Owusu RN Interpreting physician: Izabella [...] 144/70 mmHg. The double product achieved was [id number]. Medications: Last Used NIFEDIPINE 2 Days Resting ECG: Normal Sinus Rhythm and Complete LBBB Symptoms at rest: No symptoms Pharamcologic Protocol: Regadenoson Stress Exercise Table: +-----+---+---+---+ Stage HR SYS EZEKIEL +-----+---+---+---+ 1 83 +-----+---+---+---+ 2 103 158 76 +-----+---+---+---+ 3 98 +-----+---+---+---+ 4 96 144 70 +-----+---+---+---+ +-----+--+---+---+ HR SYS EZEKIEL +-----+--+---+---+ Final 96 144 70 +-----+--+---+---+ +------+-------- (more content not included)... [facility] Radiology Study observation (narrative) Brooke rojas [facility] Heart Perfusion W stress and W radionuclide IVOrdered By: Ccf Provider on 07-18-2024 [facility] PT panel Coag (PPP)Ordered B y: Cheyenne Obrien on 03-24-2024 INR Coag (PPP) [Relative time] 2.2 {INR} High 0.9 - 1.3 [facility] Comment on above: Vitamin K Antagonist (VKA) Therapeutic Range: INR 2 to 3 (Target INR of 2.5) Note: For patients treated with VKA drugs, such as warfarin, the [place] [employer] 2012 Guideline recommends [...] GH, et al. Chest 2012, 141:7S-47S Lin RA, et al. [facility] 2017, 70: 252-289 Interpretation and review of laboratory results Abnormal [facility] PT Coag (PPP) [Time] 21.5 s High STEPHF [facility] PT panel Coag (PPP)on 2023 INR Coag (Bld) [Relative time] 2.5 (ext) 2.0 - 3.[address] [facility] [address] Head WO contraston 2023 IMPRESSION: No acute intracranial abnormality or significant change from 03/07/2019 Development Chemist: BIRD Transcribe Date/Time: Feb 29 2024 12:38P Dictated by : GAYLE MOLINA DO This examination was interpreted and the report reviewed and electronically signed by: GAYLE MOLINA DO on Feb 29 2024 12:43PM [facility] DIVISION OF RADIOLOGY * * *Final Report* * * DATE OF EXAM: Feb 29 2024 12:00PM [facility] - CT BRAIN WO IVCON [...] Bilateral pseudophakia. DIVISION OF RADIOLOGY Provider, Macey Stan [facility] - 02/29/2024 * * *Final Report* * * DATE OF EXAM: Feb 29 2024 12:00PM [facility] - CT BRAIN WO IVCON [...] intracranial abnormality or significant change from 03/07/2019 Development Chemist: BIRD Transcribe Date/Time: Feb 29 2024 12:38P Dictated by : GAYLE MOLINA DO This examination was interpreted and the report reviewed and electronically signed by: GAYLE MOLINA DO on Feb 29 2024 12:43PM [facility] Radiology Study observation (narrative) Brooke rojas [facility] CT Head WO contrastOrdered B y: Ccf Provider on 02-29-2024 [facility] 12 Lead EKGon 01-08-2024 12 Lead EKG [facility] Cardiovascular Services [address] [place] [address] 12 Lead EKG 01/08/24 1906 MR#: [id number] Acct: [id number] Name: ALEX BROOKS Rep #: [id number] : 1945 78 From: Aidan Atkinson MD [...] bundle branch block Abnormal ECG Confirmed by CHRISTINE LINCOLN, AIDAN ([id number]), map editor GEGE TURPIN ([id number]) on 01/12/2024 10:11:14 AM Referred By: Confirmed By:AIDAN ATKINSON MD 01/12/24 1011 Date Aidan Atkinson MD CC: CHRISTAL Lam; Dr. Lisandro Mora MD Signed Normal [facility] BNP,B-Type NATRIURETIC PEPTI Uma 01-08-2024 Natriuretic peptide B (Bld) [Mass/Vol] 17.2 pg/mL Normal 0-100 [facility] Comment on above: Performed By: #### L 503.6651 ####[facility] [address] [place], [address] Basic Metabolic Profile (BMP )on 01-08-2024 BUN/CRE 28.9 RATIO High 10-20 [facility] Comment on above: Order Comment: 'TROP ' Serial specimen #1, #2 or #3: 1 Performed By: #### L 500.2500, L100.0100, L501.4020 #### [facility] [address] [place], [address] CA,Total 9.3 mg/dL Normal 8.5-10.1 [facility] Comment on above: Order Comment: 'TROP ' Serial specimen #1, #2 or #3: 1 Performed By: #### L 500.2500, L100.0100, L501.4020 #### [facility] [address] [place], [address] Chloride [Moles/Vol] 114 mmol/L High 98-107 [facility] Comment on above: Order Comment: 'TROP ' Serial specimen #1, #2 or #3: 1 Performed By: #### L 500.2500, L100.0100, L501.4020 #### [facility] [address] [place], [address] CO2 [Moles/Vol] 24.0 mmol/L Normal 21.0-32.0 [facility] Comment on above: Order Comment: 'TROP ' Serial specimen #1, #2 or #3: 1 Performed By: #### L 500.2500, L100.0100, L501.4020 #### [facility] [address] [place], [address] Creatinine [Mass/Vol] 0.76 mg/dL Normal 0.70-1.30 [facility] Comment on above: Order Comment: 'TROP ' Serial specimen #1, #2 or #3: 1 Result Comment: The validity of the calculated GFR GFRAA in patients over 70 years has not been determined. Clinical correlation is essential. Performed By: #### L 500.2500, L100.0100, L501.4020 #### [facility] [address] [place], [address] ECRCL 83.23 ml/min Normal [facility] Comment on above: Order Comment: 'TROP ' Serial specimen #1, #2 or #3: 1 Performed By: #### L 500.2500, L100.0100, L501.4020 #### [facility] [address] [place], [address] EST GFR - AA 127 mL/min Normal >60 [facility] Comment on above: Order Comment: 'TROP ' Serial specimen #1, #2 or #3: 1 Result Comment: Afri can [place] GFR Calc Performed By: #### L 500.2500, L100.0100, L501.4020 #### [facility] [address] [place], [address] GAP 4 Low 5-15 [facility] Comment on above: Order Comment: 'TROP ' Serial specimen #1, #2 or #3: 1 Performed By: #### L 500.2500, L100.0100, L501.4020 #### [facility] [address] [place], [address] GFR/1.73 sq M.predicted among non-blacks MDRD (S/P/Bld) [Vol rate/Area] 105 mL/min/{1.73_m2} Normal >60 [facility] Comment on above: Order Comment: 'TROP ' Serial specimen #1, #2 or #3: 1 Result Comment: Non- GFR Calc Performed By: #### L 500.2500, L100.0100, L501.4020 #### [facility] [address] [place], [address] Glucose [Mass/Vol] 124 mg/dL High 74-106 [facility] Comment on above: Order Comment: 'TROP ' Serial specimen #1, #2 or #3: 1 Result Comment: Fast ing Glucose result from 100 to 125 mg/dL suggests IMPAIRED HOMEOSTASIS per A.D.A. criteria. Performed By: #### L 500.2500, L100.0100, L501.4020 #### [facility] [address] [place], [address] Potassium [Moles/Vol] 4.1 mmol/L Normal 3.5-5.1 [facility] Comment on above: Order Comment: 'TROP ' Serial specimen #1, #2 or #3: 1 Performed By: #### L 500.2500, L100.0100, L501.4020 #### [facility] [address] [place], [address] Sodium [Moles/Vol] 143 mmol/L Normal 136-145 [facility] Comment on above: Order Comment: 'TROP ' Serial specimen #1, #2 or #3: 1 Performed By: #### L 500.2500, L100.0100, L501.4020 #### [facility] [address] [place], [address] Urea nitrogen [Mass/Vol] 22 mg/dL High 7-18 [facility] Comment on above: Order Comment: 'TROP ' Serial specimen #1, #2 or #3: 1 Performed By: #### L 500.2500, L100.0100, L501.4020 #### [facility] [address] [place], [address] CBC W/Diff, Automatedon 10-0 4-2023 Absolute Lymph 2.99 X10 3/uL Normal 0.83-4.51 [facility] Comment on above: Performed By: #### L 500.2500, L100.0100, L501.4020 #### [facility] [address] [place], [address] Absolute Neut 4.1 X10 3/uL Normal 2.0-7.7 [facility] Comment on above: Performed By: #### L 500.2500, L100.0100, L501.4020 #### [facility] [address] [place], [address] Basophils/100 WBC (Bld) 0.7 % Normal 0-1 [facility] Comment on above: Performed By: #### L 500.2500, L100.0100, L501.4020 #### [facility] [address] [place], [address] Eosinophils/100 WBC (Bld) 3.6 % Normal 0-5 [facility] Comment on above: Performed By: #### L 500.2500, L100.0100, L501.4020 #### [facility] [address] [place], [address] Erythrocyte distribution width (RBC) [Ratio] 13.9 % Normal 11.6-14.6 [facility] Comment on above: Performed By: #### L 500.2500, L100.0100, L501.4020 #### [facility] [address] [place], [address] Hematocrit (Bld) [Volume fraction] 48.2 % Normal 40-54 [facility] Comment on above: Performed By: #### L 500.2500, L100.0100, L501.4020 #### [facility] [address] [place], [address] Hemoglobin (Bld) [Mass/Vol] 15.8 g/dL Normal 13.0-16.5 [facility] Comment on above: Performed By: #### L 500.2500, L100.0100, L501.4020 #### [facility] [address] [place], [address] IG% 0.100 Normal 0.0-0.9 [facility] Comment on above: Result Comment: IG% - Immature Granulocytes (promyelocytes, myelocytes and metamyelocytes) > 1% indicates that a LEFT SHIFT is Present. Performed By: #### L 500.2500, L100.0100, L501.4020 #### [facility] [address] [place], [address] Lymphocytes/100 WBC (Bld) 36.3 % Normal 19-41 [facility] Comment on above: Performed By: #### L 500.2500, L100.0100, L501.4020 #### [facility] [address] [place], [address] MCH (RBC) [Entitic mass] 30.9 pg Normal 27.0-32.0 [facility] Comment on above: Performed By: #### L 500.2500, L100.0100, L501.4020 #### [facility] [address] [place], [id number] MCHC (RBC) [Mass/Vol] 32.8 g/dL Normal 32-36 [facility] Comment on above: Performed By: #### L 500.2500, L100.0100, L501.4020 #### [facility] [address] [place], [address] MCV (RBC) [Entitic vol] 94.1 fL High 80-94 [facility] Comment on above: Performed By: #### L 500.2500, L100.0100, L501.4020 #### [facility] [address] [place], [address] Monocytes/100 WBC (Bld) 9.1 % Normal 0-10 [facility] Comment on above: Performed By: #### L 500.2500, L100.0100, L501.4020 #### [facility] [address] [place], [address] Neutrophils/100 WBC (Bld) 50.2 % Normal 47-70 [facility] Comment on above: Performed By: #### L 500.2500, L100.0100, L501.4020 #### [facility] [address] [place], [address] Nucleated RBC (Bld) [#/Vol] 0 10*3/uL Normal 0-5 [facility] Comment on above: Performed By: #### L 500.2500, L100.0100, L501.4020 #### [facility] [address] [place], [address] Platelet mean volume (Bld) [Entitic vol] 9.1 fL Normal 6.2-12.0 [facility] Comment on above: Performed By: #### L 500.2500, L100.0100, L501.4020 #### [facility] [address] [place], [address] Platelets (Bld) [#/Vol] 210 10*3/uL Normal 150-450 [facility] Comment on above: Performed By: #### L 500.2500, L100.0100, L501.4020 #### [facility] [address] [place], [address] RBC (Bld) [#/Vol] 5.12 10*6/uL Normal 4.6-6.2 [facility] Comment on above: Performed By: #### L 500.2500, L100.0100, L501.4020 #### [facility] [address] [place], [address] RDW SD 48.1 fl High 35.1-43.9 [facility] Comment on above: Performed By: #### L 500.2500, L100.0100, L501.4020 #### [facility] [address] [place], [address] WBC (Bld) [#/Vol] 8.2 10*3/uL Normal 4.4-11.0 [facility] Comment on above: Performed By: #### L 500.2500, L100.0100, L501.4020 #### [facility] [address] [place], [address] Chest 1 View (Portable)on Chest 1 View (Portable) [facility] Imaging Services [address] [place] [address] Chest 1 View (Portable) MR#: [id number] Acct: [id number] Name: ALEX BROOKS Rep #: [id number] : 1945 M 78 From: Jake childress MD PCP: CHRISTAL Navarro Status: REG ER Study: Chest 1 View (Portable) Date of Exam: 01/08/24 Exam# [id number] Ordering Dr: Lisandro Mora MD [id number] STUDY: X-RAY CHEST REASON FOR EXAM: Male, [...] CC: CHRISTAL Lam; Dr. Lisandro Mora MD Development Chemist: Signed Normal [facility] Emergency Department Summary on 01-08-2024 Emergency Department Summary [facility] Medical Records Department [address] [place] [address] Emergency Department Summary 01/08/24 MR#: [id number] Acct: [id number] Name: ALEX BROOKS Rep #: [id number] : 1945 78 From: Lisandro Mora MD PCP: CHRISTAL Navarro Status:REG ER Location: ED HPI History [...] no fevers or chills. No leg edema. [facility] Medical History Wears glasses Alcohol use Kidney [...] 2 tab PO DAILY 11/11/17 03/23/22 History mg-hydrochlorothiazid e 12.5 mg tablet ascorbic acid (vitamin C) [...] QHS PRN PRN Insomnia 03/20/22 Unknown History oxycodone-acetaminoph en 5 mg-325 1 tab PO PRN PRN Pain 03/20/22 Unknown History mg tablet oxycodone-acetaminoph en 5 mg-325 1 tab PO Q8H PRN [...] sore th (more content not included)... Normal [facility] L501.4020on 01-08-2024 TROPONIN-I HS 18 pg/mL Normal 3.0-78.0 [facility] Comment on above: Order Comment: 'TROP ' Serial specimen #1, #2 or #3: 1 Result Comment: Ángel zhu Note: New Test Units and Gender Specific Reference Ranges. For more information see Policy Stat Procedure Shannon High Sensitivity Troponin (TNIH) and attachments. Performed By: #### L 500.2500, L100.0100, L501.4020 #### [facility] [address] [place], [address] Prothrombin Time w/INRon INR Coag (PPP) [Relative time] 2.2 {INR} Normal [facility] Comment on above: Performed By: #### L 300.3900 ####[facility] [address] [place], [address] PT Coag (PPP) [Time] 24.2 s High 11.7-14.9 [facility] Comment on above: Performed By: #### L 300.3900 ####[facility] [address] [place], [address] PT panel Coag (PPP)on 2023 INR Coag (Bld) [Relative time] [facility] Patient calling to report lab result INR=1.3. Result in EPIC. [facility] UA DIP, URINE (POC)on 2023 BILIRUBIN UA (POCT) Negative Negative [facility] CLARITY UA (POCT) [facility] COLOR UA (POCT) Yellow [facility] GLUCOSE UA (POCT) Negative Negative mg/dL [facility] Hemoglobin Ql (U) Negative Negative [facility] Interpretation and review of laboratory results Abnormal [facility] KETONE UA (POCT) Negative Negative mg/dL [facility] LEUKOCYTES UA (POCT) Negative Negative [facility] NITRITE UA (POCT) Negative Negative [facility] PH UA (POCT) 6.0 4.5 - 8.0 [facility] Protein Ql (U) 30 mg/dL Abnormal Negative [facility] SPECIFIC GRAVITY UA (POCT) 1.025 1.005 - 1.030 [facility] UROBILINOGEN UA (POCT) 0.2 Nicki l E.U./dL [facility] Location:[facility], [address] [facility], [place], [place], [address] [place] [address] POINT OF CARE [facility] CNOVon 11-12-2023 CNCAMMY Office Visit (ARUNA ) ALEX BROOKS ([id number]) 1945 M [facility] Date Time Provider Department 11/12/23 1:00 [...] reducing alcohol intake. He was living in [facility] since he was born and moved to [place] for job-related which he regret as business environment and living was not the same. About 10 year ago, he moved to [place] and that was when he started experiencing exacerbation of all the condition. 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 No diabetes Coumadin [facility] [address] [facility] [address] Dept: [phone] Alex Brooks : 1945 [facility] Medicine Acupuncture Intake Form (For Patient Review Regarding Diagnostic Exam) I have received a diagnostic exam by physician or chiropractor within the last six months regarding the condition for which I am seeking treatment. Patient Signature: Alex Brooks Date: 11/12/23 Special Distribution Clerk Signature: Walt Yang Lac. Date: 11/12/23 The patient's history is well detailed in the EMR. Current view: Showing all answers [facility] Mychart Additional Demo Question 11/05/2023 10:20 AM EDT - Filed by Patient Is this visit related to an accident, other than Workers' Compensation? No Is this visit related to Workers' Compensation? No Do you need an mumps developer? No [facility] Promis Cat V2.0-Physical Function-28 Days [...] a medical diagnosis? (more content not included)... [facility]OO[facility] ( ) 1945 M T Date Time Provider Department 11/10/23 ZENY LAM FMUPCE During your visit today, we recorded the [...] message on pt's phone instructions. 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 In the morning. - oxyCODONE-acetaminoph en (PERCOCET) 5-325 mg tablet Take 1 tablet [...] day. - Back Brace (BACK SUPPORT S/M) misc Use as instructed. - lisinopril (ZESTRIL) 20 [...] hemorrhoid [K64.4] 06/20/19 (more content not included)... [facility] PT panel Coag (PPP)on 2023 INR Coag (Bld) [Relative time] 2.5 {INR} [facility] PT panel Coag (PPP)on 2023 INR Coag (Bld) [Relative time] 1.9 (ext) 2.0 - 3.0 [facility] PT panel Coag (PPP)on 2023 INR Coag (Bld) [Relative time] 2.0 {INR} 2.0 - 3.0 [facility] XR Chest PA and Lateralon IMPRESSION: No acute radiographic abnormality. Development Chemist: [facility] Trans[facility] Date/Time: Aug 25 2023 4:47P Dictated by : DENIA BRADY MD This examination was interpreted and the report reviewed and electronically signed by: DENIA BRADY MD on Aug 25 2023 4:52PM [facility] DIVISION OF RADIOLOGY * * *Final [...] soft tissues: Unremarkable. DIVISION OF RADIOLOGY Provider, [facility] Stan Choudhury - 08/25/2023 * * *Final Report* * [...] Unremarkable. IMPRESSION IMPRESSION: No acute radiographic abnormality. Development Chemist: BIRD Transcribe Date/Time: Aug 25 2023 4:47P Dictated by : DENIA BRADY MD This examination was interpreted and the report reviewed and electronically signed by: DENIA BRADY MD on Aug 25 2023 4:52PM [facility] Radiology Study observation (narrative) Brooke rojas [facility] XR Chest PA and LateralOrder ed By: [facility] Provider on 08-25-2023 [facility] PT panel Coag (PPP)on 2023 [facility] CNPNon 07-30-2023 CNPN Telephone (FMUPCE) ALEX BROOKS ( ) 1945 M T Date Time Provider Department 07/30/23 ZENY LAM AJAY During your visit today, we recorded the following information about you: Maribel Oden LPN 07/30/2023 12:04 PM Signed Last INR: INR Home CoaguChek 1.9 07/30/2023 [...] leave a detailed message. ALVERTO Jain Terri, APRN.SENIOR BUSINESS DEVELOPMENT ANALYST 07/30/2023 12:49 PM Signed Continue with current Coumadin dosing unchanged. Regarding dental appointment: Recommend checking INR 5 to 7 days after resuming Coumadin. He may resume Coumadin at 5 mg daily. Celia James LPN 07/30/2023 1:23 PM Signed Left detailed message regarding coumadin instructions and was advised to call back to confirm message was received. Molly Olmos LPN, RN 07/30/2023 1:26 PM Signed Spoke with patient. Given message from provider's office. Patient verbalizes understanding. He confirmed he received VM message. 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 - Back Brace (BACK SUPPORT S/M) [facility] Use as instructed. - lisinopril (ZESTRIL) 20 [...] Ureterolithiasis [N20.1] 02 (more content not included)... [facility] PT panel Coag (PPP)on 2023 INR Coag (Bld) [Relative time] 1.9 {INR} [facility] CNPPolly 07-15-2023 CNPN Telephone (FMUPCE) ALEX BROOKS ( ) 1945 M T Date Time Provider Department 07/15/23 ZENY LAM FMUPNABOR During your visit today, we recorded the following information about you: Maribel Oden LPN 07/15/2023 3:43 PM Signed Last INR: INR Home CoaguChek 2.4 07/15/2023 Current dose of coumadin is: 5 mg daily. Last date of dose change: 06/12/23. Previous INR (date and result): 06/30/23 2/2 INR Goal 2.0 to 3.0 Additional Clinical Information or narrative: no denies and bledding, bruising, change in diet, missed doses, recent ATB. Provider out of the office. 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 INR in 2 weeks. Kristina Youssef LPN 07/15/2023 5:08 PM Signed My chart message to pt. 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 - Back Brace (BACK SUPPORT S/M) [facility] Use as instructed. - lisinopril (ZESTRIL) 20 [...] [K64.4] 06/19/2014 06/02/2022 Chronic cough [R05.3] 10/04/2015 (more content not included)... [facility] PT panel Coag (PPP)on 2023 INR Coag (Bld) [Relative time] 2.4 {INR} [facility] CNPPolly 06-30-2023 CNPN Telephone (FMUPCE) ALEX BROOKS ( ) 1945 M T Date Time Provider Department 06/30/23 ZENY LAM FMUPCE During your visit today, we recorded the [...] detailed message for pt. ALVERTO Jain Rosa, APRN.THEATRICAL AGENT 06/30/2023 4:07 PM Signed INR looks good, [...] Date Reviewed: 06/29/2023 Reviewed by: Zeny Lam APRN.THEATRICAL AGENT - Fully Assessed Reason for Visit: Anticoagulation [8] Order(s):PROTHROMBIN TIME [SQPT] Order #: [id number] Prescriptions as of 06/30/2023 - oxyCODONE-acetaminoph en (PERCOCET) 5-325 mg tablet Take 1 tablet [...] needed. - Back Brace (BACK SUPPORT S/M) [facility] Use as instructed. - lisinopril (ZESTRIL) 20 [...] 10/04/2015 05/05/2016 (more content not included)... Normal [facility] PT panel Coag (PPP)on 2023 INR Coag (Bld) [Relative time] 2.2 {INR} [facility] PT panel Coag (PPP)on 2023 INR Coag (Bld) [Relative time] 2.9 {INR} [facility] PT panel Coag (PPP)on 2023 INR Coag (Bld) [Relative time] 4.5 {INR} [facility] MR Lumbar spine WO contrasto n 05-29-2023 Radiology Result ACTIONABLE Abnormal [facility] PT panel Coag (PPP)on 2023 INR Coag (Bld) [Relative time] 2.6 {INR} [facility] CNPPolly 05-15-2023 CNPN Telephone ([facility]) ALEX BROOKS ( ) 1945 M T Date Time Provider Department 05/15/23 ZENY LAM During your visit today, we [...] leave a detailed message. 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 Do not start before May 16, 2023.Disp: 28 tabletRfl: 0 Prescriptions as of 05/15/2023 - oxyCODONE-acetaminoph en (PERCOCET) 5-325 mg tablet Take 1 tablet [...] 07/05/2013 04/20/2017 GERD (gastroesophageal reflux disease) [K21.9] more content not included)... Normal [facility] Brain/Head without Contrasto n 05-14-2023 Brain/Head without Contrast [facility] Imaging Services [address] [place] [address] Brain/Head without Contrast MR#: [id number] Acct: [id number] Name: ALEX BROOKS Rep #: [id number] : 1945 M 77 From: Gustavo ayala MD PCP: Dr. Franc Hills MD Status: REG ER Study: Brain/Head without Contrast Date of Exam: 11/27 Exam# [id number] Ordering Dr: Mckinley Varner [id number] STUDY: CT BRAIN WITHOUT CONTRAST REASON FOR [...] Signed: Gustavo Pruett MD at 13:14 EST Reading Location ID and State: [facility] / [place] , Service support , CC: CHRISTAL Varner; Dr. Franc Hills MD Development Chemist: Signed Normal [facility] Elbow min 3 Viewson 05-14-19 Elbow min 3 Views [facility] Imaging Services [address] [place] [address] Elbow min 3 Views MR#: [id number] Acct: [id number] Name: ALEX BROOKS Rep #: [id number] : 1945 M 77 From: Gustavo ayala MD PCP: Dr. Franc Hills MD Status: REG ER Study: Elbow min 3 Views Date of Exam: 05/14/23 Exam# [id number] Ordering Dr: Mckinley Varner [id number] STUDY: X-RAY - LEFT ELBOW REASON FOR [...] CC: CHRISTAL Varner; Dr. Franc Hills MD Development Chemist: Signed Normal [facility] Emergency Department Summary on 05-14-2023 Emergency Department Summary [facility] Medical Records Department [address] [place] [address] Emergency Department Summary 05/14/23 MR#: [id number] Acct: [id number] Name: ALEX BROOKS Rep #: [id number] : 1945 77 From: Lisandro Mora MD [...] little relief. He is here for evaluation. [facility] Medical History Alcohol use Asthma Back pain [...] embolism Wears glasses Home Medications lisinopril 20 mg-hydrochlorothiazid e 12.5 mg tablet 2 tab PO DAILY [...] tablet 40 mg PO PRN PRN GERD 12/15/22 [History Last Taken Unknown] lorazepam 1 mg tablet 2 mg PO QHS PRN PRN Insomnia 03/20/22 [History Last Taken Unknown] oxycodone-acetaminoph en 5 mg-325 mg tablet 1 tab PO PRN PRN Pain 03/20/22 [History Last Taken Unknown] oxycodone-acetaminoph en 5 mg-325 mg tablet (Percocet) 1 tab [...] Skin: Negati (more content not included)... Normal [facility] Spine Lumbar without Contras ton 05-14-2023 Spine Lumbar without Contrast [facility] Imaging Services [address] [place] [address] Spine Lumbar without Contrast MR#: [id number] Acct: [id number] Name: ALEX BROOKS Rep #: [id number] : 1945 M 77 From: Gustavo ayala MD PCP: Dr. Franc Hills MD Status: REG ER Study: Spine Lumbar without Contrast Date of Exam: Exam# [id number] Ordering Dr: Mckinley Varner LICENSED MENTAL HEALTH PROFESSIONAL-C [id number] STUDY: CT LUMBAR SPINE WITHOUT CONTRAST REASON [...] CC: CHRISTAL Varner; Dr. Franc Hills MD Development Chemist: Signed Normal [facility] PT panel Coag (PPP)on 2022 INR Coag (Bld) [Relative time] 2.3 {INR} 2.0 - 3.0 [facility] CNPNon 02-04-2023 CNPN Telephone (FMUPCE) ALEX BROOKS ( ) 1945 M [facility] Date Time Provider Department 02/04/23 ZENY LAM FMUPCE During your visit today, we recorded the following information about you: Maribel Oden LPN 02/04/2023 11:31 AM Signed Last INR: INR Home CoaguChek 2.6 02/04/2023 Current dose of coumadin is: 10 mg on Tues, Fri, Sun and then 7.5 all other days. Last date of dose change: 01/14/23. Previous INR (date and result): 01/22/23, 2.5 Additional Clinical Information or narrative: yes: Pt denies any diet changes, no alcholol, bleeding, bruising, ATB. No missed doses. Please advise pt back with a detailed message left on his answer machine. Please do not ask to have pt call back. Maribel Oden LPN Zeny Lam APRN.KAYLA 02/04/2023 11:53 AM Signed Records show INR [...] scheduled for 2 weeks out. 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 - famotidine (PEPCID) 40 mg tablet Take 1 tablet by mouth once daily as needed. - warfarin (COUMADIN) 5 mg tablet Take 1.5 tablets on Sundays and 2 tablets Thursday through Saturdays - rosuvastatin (CRESTOR) 40 mg tablet Take 1 tablet by mouth once daily. - oxyCODONE-acetaminoph en (PERCOCET) 5-325 mg tablet Take 1 tablet [...] 03/31/2014 10/11/2014 Recurr (more content not included)... [facility] PT panel Coag (PPP)on 2022 INR Coag (Bld) [Relative time] 2.6 {INR} [facility] PT panel Coag (PPP)on 2022 INR Coag (Bld) [Relative time] 2.2 {INR} [facility] PT panel Coag (PPP)on 2022 INR Coag (Bld) [Relative time] 5.3 (ext) 2.0 - 3.0 [facility] PT panel Coag (PPP)on 2022 INR Coag (Bld) [Relative time] 3.3 {INR} [facility] PT panel Coag (PPP)on 2022 INR Coag (Bld) [Relative time] 2.1 {INR} [facility] PT panel Coag (PPP)on 2022 INR Coag (Bld) [Relative time] 2.4 (ext) 2.0 - 3.0 [facility] PT panel Coag (PPP)on 2022 INR Coag (Bld) [Relative time] 1.0 {INR} Abnormal 2.0 - 3.0 [facility] PT panel Coag (PPP)on 2022 INR Coag (Bld) [Relative time] 3.7 {INR} [facility] PT panel Coag (PPP)on 2022 INR Coag (Bld) [Relative time] 2.1 EXT 2.5 - 3.5 [facility] PT panel Coag (PPP)on 2022 INR Coag (Bld) [Relative time] 2.4 {INR} [facility] PT panel Coag (PPP)on 2022 INR Coag (Bld) [Relative time] 1.0 {INR} [facility] PT panel Coag (PPP)on 2021 INR Coag (Bld) [Relative time] 3.2 {INR} Abnormal 2.0 - 3.0 [facility] Laboratory - Coagulationon 1 05-25-2021 INR Coag (Bld) [Relative time] 1.1 {INR} [facility] Work Phone: Comment on above: Critical Value > 4.0 Whole blood prothrombin time on 03-24-2022 PT Coag (Bld) [Time] 13.8 s 11.7-14.9 [facility] Work Phone: INR (POC)on 02-18-2022 INR Coag (PPP) [Relative time] 2.6 {INR} High 0.8 - 1.2 [facility] Internal Quality Check Acceptable [facility] INRon 01-08-2022 INR Coag (Bld) [Relative time] 1.8 {INR} Abnormal 2.0 - 3.0 [facility] Absolute lymphocyte counton 09-28-2021 Lymphocytes Auto (Unsp spec) [#/Vol] 2.86 10*3/uL 0.83-4.51 [facility] Work Phone: Basophil percentageon 2021 Basophils/100 WBC (Bld) 0.7 % 0-1 [facility] Work Phone: Chloride [Moles/Vol] 106 mmol/L 98-107 [facility] Work Phone: Eosinophils/100 WBC (Bld) 5.2 % 0-5 [facility] Work Phone: Glucose [Mass/Vol] 99 mg/dL 74-106 [facility] Work Phone: Neutrophils (Bld) [#/Vol] 3.0 10*3/uL 2.0-7.7 [facility] Work Phone: Neutrophils/100 WBC (Bld) 41.2 % 47-70 [facility] Work Phone: Potassium [Moles/Vol] 3.8 mmol/L 3.5-5.1 [facility] Work Phone: Sodium [Moles/Vol] 138 mmol/L 136-145 [facility] Work Phone: WBC (Bld) [#/Vol] 7.3 10*3/uL 4.4-11.0 [facility] Work Phone: Blood erythrocytes count (nu mber/volume)on 09-28-2021 RBC (Bld) [#/Vol] 4.91 10*6/uL 4.6-6.2 [facility] Work Phone: Blood hemoglobin measurement (mass/volume)on 09-28-2021 Hemoglobin (Bld) [Mass/Vol] 15.5 g/dL 13.0-16.5 [facility] Work Phone: Blood lymphocytes/100 leukoc yteson 09-28-2021 Lymphocytes/100 WBC (Bld) 39.1 % 19-41 [facility] Work Phone: Blood monocytes/100 leukocyt eson 09-28-2021 Monocytes/100 WBC (Bld) 13.7 % 0-10 [facility] Work Phone: Blood platelet mean volumeon 09-28-2021 Platelet mean volume (Bld) [Entitic vol] 9.6 fL 6.2-12.0 [facility] Work Phone: Determination of erythrocyte mean corpuscular volume (MCV)on 09-28-2021 MCV (RBC) [Entitic vol] 95.7 fL 80-94 [facility] Work Phone: [phone] Hematocrit Auto (Bld) [Volum e fraction]on 09-28-2021 Hematocrit (Bld) [Volume fraction] 47.0 % 40-54 [facility] Work Phone: INR in Blood by Coagulation assayon 09-28-2021 INR Coag (Bld) [Relative time] 1.7 {INR} [facility] Work Phone: [phone] Laboratory - Chemistry and C hemistry - challengeon 09-28-2021 CO2 [Moles/Vol] 26.0 mmol/L 21.0-32.0 [facility] Work Phone: Urea nitrogen/Creatinine [Mass ratio] 16.4 mg/mg 10-20 [facility] Work Phone: [phone] Laboratory - Coagulationon 0 09-28-2021 PT Coag (PPP) [Time] 19.4 s 11.7-14.9 [facility] Work Phone: [phone] Laboratory - Hematology and Cell countson 09-28-2021 Erythrocyte distribution width (RBC) [Entitic vol] 49.6 fL 35.1-43.9 [facility] Work Phone: [phone] Erythrocyte distribution width (RBC) [Ratio] 14.0 % 11.6-14.6 [facility] Work Phone: [phone] Immature granulocytes/100 WBC (Bld) 0.100 % 0.0-0.9 [facility] Work Phone: Comment on above: IG% - Immature Granu locytes (promyelocytes, myelocytes and metamyelocytes) > 1% indicates that a LEFT SHIFT is Present. MCH (RBC) [Entitic mass] 31.6 pg 27.0-32.0 [facility] Work Phone: Nucleated RBC/100 WBC (Bld) [Ratio] 0 % 0-5 [facility] Work Phone: [phone] MCHC Auto (RBC) [Mass/Vol]on 09-28-2021 MCHC (RBC) [Mass/Vol] 33.0 g/dL 32-36 [facility] Work Phone: No Panel Informationon 09-28 Estimated Creatinine Clearance Calc 80.94 ml/min [facility] Work Phone: Estimated GFR (MDRD) Amer 112 mL/min >60 [facility] Work Phone: Comment on above: GFR Calc Estimated GFR (MDRD) Non-Af Amer 92 mL/min >60 [facility] Work Phone: Comment on above: Non- GFR Calc Platelets bldon 09-28-2021 Platelets (Bld) [#/Vol] 201 10*3/uL 150-450 [facility] Work Phone: Serum or plasma calcium wilmar urement (mass/volume)on 09-28-2021 Calcium [Mass/Vol] 9.3 mg/dL 8.5-10.1 [facility] Work Phone: Serum or plasma creatinine m easurement (mass/volume)on 09-28-2021 Creatinine [Mass/Vol] 0.85 mg/dL 0.70-1.30 [facility] Work Phone: Comment on above: The validity of the calculated GFR & GFRAA in patients over 70 years has not been determined. Clinical correlation is essential. Serum or plasma urea nitroge n measurement (mass/volume)on 09-28-2021 Urea nitrogen [Mass/Vol] 14 mg/dL 7-18 [facility] Work Phone: Thin prep Papanicolaou smear with manual screeningon 09-28-2021 Thin prep Papanicolaou smear with manual screening 6 5-15 [facility] Work Phone: PT panel Coag (PPP)on 2021 INR Coag (Bld) [Relative time] 2.2 {INR} 2 - 3 [facility] PT panel Coag (PPP)on 2021 INR Coag (Bld) [Relative time] 2.1(EXT) 2.0 - 3.0 [facility] PT panel Coag (PPP)on 2021 INR Coag (Bld) [Relative time] 1.7 {INR} [facility] XR Wrist - right PA and Late ral and Obliqueon 01-13-2020 IMPRESSION: Tiny accessory bone versus tiny avulsion fracture along the radial styloid. Development Chemist: BIRD Transcribe Date/Time: Jan 13 2020 10:30A Dictated by : ELSY BARNARD MD This examination was interpreted and the report reviewed and electronically signed by: ELSY BARNARD MD on Jan 13 2020 10:32AM [facility] DIVISION OF RADIOLOGY * * *Final [...] soft tissue swelling. DIVISION OF RADIOLOGY Provider, [facility] - 01/13/2020 * * *Final Report* [...] tiny avulsion fracture along the radial styloid. Development Chemist: BIRD Transcribe Date/Time: Jan 13 2020 10:30A Dictated by : ELSY BARNARD MD This examination was interpreted and the report reviewed and electronically signed by: ELSY BARNARD MD on Jan 13 2020 10:32AM EST [facility] Radiology Study observation (narrative) Brooke rojas [facility] XR Wrist - right PA and Late ral and ObliqueOrdered By: [facility] Provider on 01-13-2020 [facility] No Panel Information [facility] Vital Signs Date Time Vital Sign Value Performing Clinician Facility 11-20-2024 09:03-0400 Body temperature 98.1 [degF] Dr. Danielle Han DO Work Phone: [phone] [address] 11-20-2024 09:03-0400 Diastolic blood pressure 87 mm[Hg] Dr. Danielle Han DO Work Phone: 6([phone] [place] [address] 11-20-2024 09:03-0400 Heart rate 74 /min Dr. Danielle Han DO Work Phone: 8([phone])504-469424 [address] 11-20-2024 09:03-0400 Respiratory rate 19 /min Dr. Danielle Han DO Work Phone: [phone])[phone] [place] [address] 11-20-2024 09:03-0400 SaO2% (BldA) [Mass fraction] 100 % Dr. Danielle Han DO Work Phone: [phone])[phone] [place] [address] 11-20-2024 09:03-0400 Systolic blood pressure 164 mm[Hg] Dr. Danielle Han DO Work Phone: [phone] [place] [address] 11-20-2024 09:02-0400 Body height 185.[address] Danielle Han DO Work Phone: [phone])[phone] [place] [address] 11-20-2024 09:02-0400 Body mass index (BMI) [Ratio] 25.1 kg/m2 Dr. Danielle Han DO Work Phone: [phone] [place] [address] 11-20-2024 09:02-0400 Body weight 86.[address] Danielle Han DO Work Phone: 0(105)[phone] [place] [address] 11-15-2024 13:48-0400 Diastolic blood pressure 68 mm[Hg] Zeny Genaro AIR CONDITIONING SUPERVISOR.THEATRICAL AGENT Work Phone: [facility] 11-15-2024 13:48-0400 Systolic blood pressure 128 mm[Hg] Zeny Genaro AIR CONDITIONING SUPERVISOR.THEATRICAL AGENT Work Phone: [facility] 11-15-2024 12:43-0400 Body mass index (BMI) [Ratio] 27.59 kg/m2 Zeny Genaro AIR CONDITIONING SUPERVISOR.THEATRICAL AGENT Work Phone: [facility] 11-15-2024 12:43-0400 Body weight 89.4 kg Zeny Genaro AIR CONDITIONING SUPERVISOR.THEATRICAL AGENT Work Phone: [facility] 11-15-2024 12:43-0400 Heart rate 80 /min Zeny Genaro AIR CONDITIONING SUPERVISOR.THEATRICAL AGENT Work Phone: [facility] 11-15-2024 12:43-0400 Respiratory rate 20 /min Zeny Genaro AIR CONDITIONING SUPERVISOR.THEATRICAL AGENT Work Phone: [facility] 10-20-2024 12:56-0400 Diastolic blood pressure 82 mm[Hg] Mirlande Funez MD Work Phone: [facility] 10-20-2024 12:56-0400 Heart rate 114 /min Mirlande Funez MD Work Phone: [facility] 10-20-2024 12:56-0400 Respiratory rate 17 /min Mirlande Funez MD Work Phone: [facility] 10-20-2024 12:56-0400 SaO2% (BldA) [Mass fraction] 96 % Mirlande Funez MD Work Phone: [facility] 10-20-2024 12:56-0400 Systolic blood pressure 132 mm[Hg] Mirlande Funez MD Work Phone: [facility] 08-15-2024 13:31-0400 Body height 180 cm Zeny Genaro AIR CONDITIONING SUPERVISOR.THEATRICAL AGENT Work Phone: [facility] 08-15-2024 13:31-0400 Body mass index (BMI) [Ratio] 26.91 kg/m2 Zeny Genaro AIR CONDITIONING SUPERVISOR.THEATRICAL AGENT Work Phone: [facility] 08-15-2024 13:31-0400 Body weight 87.2 kg Zeny Genaro AIR CONDITIONING SUPERVISOR.THEATRICAL AGENT Work Phone: [facility] 08-15-2024 13:31-0400 Diastolic blood pressure 74 mm[Hg] Zeny Genaro AIR CONDITIONING SUPERVISOR.THEATRICAL AGENT Work Phone: [facility] 08-15-2024 13:31-0400 Heart rate 96 /min Zeny Genaro AIR CONDITIONING SUPERVISOR.THEATRICAL AGENT Work Phone: [facility] 08-15-2024 13:31-0400 SaO2% (BldA) [Mass fraction] 97 % Zeny Genaro AIR CONDITIONING SUPERVISOR.THEATRICAL AGENT Work Phone: [facility] 08-15-2024 13:31-0400 Systolic blood pressure 100 mm[Hg] Zeny Genaro AIR CONDITIONING SUPERVISOR.THEATRICAL AGENT Work Phone: [facility] 08-08-2024 12:54-0400 Body height 185.4 cm Sunny Mercedes MD Work Phone: [facility] 08-08-2024 12:54-0400 Body mass index (BMI) [Ratio] 25.07 kg/m2 Sunny Mercedes MD Work Phone: [facility] 08-08-2024 12:54-0400 Body weight 86.18 kg Sunny Mercedes MD Work Phone: [facility] 08-08-2024 12:54-0400 Diastolic blood pressure 76 mm[Hg] Sunny Mercedes MD Work Phone: [facility] 08-08-2024 12:54-0400 Heart rate 82 /min Sunny Mercedes MD Work Phone: [facility] 08-08-2024 12:54-0400 Respiratory rate 16 /min Sunny Mercedes MD Work Phone: [facility] 08-08-2024 12:54-0400 SaO2% (BldA) [Mass fraction] 96 % Sunny Mercedes MD Work Phone: [facility] 08-08-2024 12:54-0400 Systolic blood pressure 132 mm[Hg] Sunny Mercedes MD Work Phone: [facility] 07-25-2024 11:14-0400 Body mass index (BMI) [Ratio] 25.62 kg/m2 Zeny Genaro AIR CONDITIONING SUPERVISOR.THEATRICAL AGENT Work Phone: [facility] 07-25-2024 11:14-0400 Body weight 88.1 kg Zeny Genaro AIR CONDITIONING SUPERVISOR.THEATRICAL AGENT Work Phone: [facility] 07-25-2024 11:14-0400 Diastolic blood pressure 78 mm[Hg] Zeny Genaro AIR CONDITIONING SUPERVISOR.THEATRICAL AGENT Work Phone: [facility] 07-25-2024 11:14-0400 Heart rate 98 /min Zeny Genaro AIR CONDITIONING SUPERVISOR.THEATRICAL AGENT Work Phone: [facility] 07-25-2024 11:14-0400 SaO2% (BldA) [Mass fraction] 96 % Zeny Genaro AIR CONDITIONING SUPERVISOR.THEATRICAL AGENT Work Phone: [facility] 07-25-2024 11:14-0400 Systolic blood pressure 118 mm[Hg] Zeny Genaro AIR CONDITIONING SUPERVISOR.THEATRICAL AGENT Work Phone: [facility] 06-08-2024 15:06-0500 Body mass index (BMI) [Ratio] 25.65 kg/m2 Zeny Genaro AIR CONDITIONING SUPERVISOR.THEATRICAL AGENT Work Phone: [facility] 06-08-2024 15:06-0500 Body weight 88.2 kg Zeny Genaro AIR CONDITIONING SUPERVISOR.THEATRICAL AGENT Work Phone: [facility] 06-08-2024 15:06-0500 Diastolic blood pressure 60 mm[Hg] Zeny Genaro AIR CONDITIONING SUPERVISOR.THEATRICAL AGENT Work Phone: [facility] 06-08-2024 15:06-0500 Heart rate 84 /min Zeny Genaro AIR CONDITIONING SUPERVISOR.THEATRICAL AGENT Work Phone: [facility] 06-08-2024 15:06-0500 SaO2% (BldA) [Mass fraction] 96 % Zeny Genaro AIR CONDITIONING SUPERVISOR.THEATRICAL AGENT Work Phone: [facility] 06-08-2024 15:06-0500 Systolic blood pressure 100 mm[Hg] Zeny Elizabethr AIR CONDITIONING SUPERVISOR.THEATRICAL AGENT Work Phone: [facility] 05-24-2024 11:36-0500 Diastolic blood pressure 58 mm[Hg] Edgar Loaiza DO Work Phone: [facility] 05-24-2024 11:36-0500 Heart rate 83 /min Edgar Loaiza DO Work Phone: [facility] 05-24-2024 11:36-0500 SaO2% (BldA) [Mass fraction] 95 % Edgar Loaiza DO Work Phone: [facility] 05-24-2024 11:36-0500 Systolic blood pressure 98 mm[Hg] Edgar Loaiza DO Work Phone: [facility] 05-17-2024 13:52-0500 Body mass index (BMI) [Ratio] 25.86 kg/m2 Teri Yasmani AIR CONDITIONING SUPERVISOR.THEATRICAL AGENT Work Phone: [facility] 05-17-2024 13:52-0500 Body weight 88.91 kg Teri Yasmani AIR CONDITIONING SUPERVISOR.THEATRICAL AGENT Work Phone: [facility] 05-17-2024 13:52-0500 Diastolic blood pressure 72 mm[Hg] Teri Yasmani AIR CONDITIONING SUPERVISOR.THEATRICAL AGENT Work Phone: [facility] 05-17-2024 13:52-0500 Heart rate 75 /min Teri Yasmani AIR CONDITIONING SUPERVISOR.THEATRICAL AGENT Work Phone: [facility] 05-17-2024 13:52-0500 SaO2% (BldA) [Mass fraction] 96 % Teri Yasmani AIR CONDITIONING SUPERVISOR.THEATRICAL AGENT Work Phone: [facility] 05-17-2024 13:52-0500 Systolic blood pressure 110 mm[Hg] Teri Yasmani AIR CONDITIONING SUPERVISOR.THEATRICAL AGENT Work Phone: [facility] 02-15-2024 14:24-0500 Body mass index (BMI) [Ratio] 25.04 kg/m2 Zeny Genaro AIR CONDITIONING SUPERVISOR.THEATRICAL AGENT Work Phone: [facility] 02-15-2024 14:24-0500 Body weight 86.1 kg Zeny Genaro AIR CONDITIONING SUPERVISOR.THEATRICAL AGENT Work Phone: [facility] 02-15-2024 14:24-0500 Diastolic blood pressure 80 mm[Hg] Zeny Genaro AIR CONDITIONING SUPERVISOR.THEATRICAL AGENT Work Phone: [facility] 02-15-2024 14:24-0500 Heart rate 85 /min Zeny Genaro AIR CONDITIONING SUPERVISOR.THEATRICAL AGENT Work Phone: [facility] 02-15-2024 14:24-0500 SaO2% (BldA) [Mass fraction] 96 % Zeny Genaro AIR CONDITIONING SUPERVISOR.THEATRICAL AGENT Work Phone: [facility] 02-15-2024 14:24-0500 Systolic blood pressure 110 mm[Hg] Zeny Genaro AIR CONDITIONING SUPERVISOR.THEATRICAL AGENT Work Phone: [facility] 01-20-2024 13:55-0400 Diastolic blood pressure 70 mm[Hg] Zeny Genaro AIR CONDITIONING SUPERVISOR.THEATRICAL AGENT Work Phone: [facility] 01-20-2024 13:55-0400 Systolic blood pressure 142 mm[Hg] Zeny Genaro AIR CONDITIONING SUPERVISOR.THEATRICAL AGENT Work Phone: [facility] 01-20-2024 13:09-0400 Body height 185.4 cm Zeny Genaro AIR CONDITIONING SUPERVISOR.THEATRICAL AGENT Work Phone: [facility] 01-20-2024 13:09-0400 Body mass index (BMI) [Ratio] 25.01 kg/m2 Zeny Genaro AIR CONDITIONING SUPERVISOR.THEATRICAL AGENT Work Phone: [facility] 01-20-2024 13:09-0400 Body weight 86 kg Zeny Genaro AIR CONDITIONING SUPERVISOR.THEATRICAL AGENT Work Phone: [facility] 01-20-2024 13:09-0400 Heart rate 95 /min Zeny Genaro AIR CONDITIONING SUPERVISOR.THEATRICAL AGENT Work Phone: [facility] 01-20-2024 13:09-0400 Respiratory rate 16 /min Zeny Genaro AIR CONDITIONING SUPERVISOR.THEATRICAL AGENT Work Phone: [facility] 01-20-2024 13:09-0400 SaO2% (BldA) [Mass fraction] 96 % Zeny Genaro AIR CONDITIONING SUPERVISOR.THEATRICAL AGENT Work Phone: [facility] 01-06-2024 11:12-0400 Body mass index (BMI) [Ratio] 24.43 kg/m2 Zeny Genaro AIR CONDITIONING SUPERVISOR.THEATRICAL AGENT Work Phone: [facility] 01-06-2024 11:12-0400 Body weight 84 kg Zeny Genaro AIR CONDITIONING SUPERVISOR.THEATRICAL AGENT Work Phone: [facility] 01-06-2024 11:12-0400 Diastolic blood pressure 64 mm[Hg] Zeny Genaro AIR CONDITIONING SUPERVISOR.THEATRICAL AGENT Work Phone: [facility] 01-06-2024 11:12-0400 Heart rate 69 /min Zeny Genaro AIR CONDITIONING SUPERVISOR.THEATRICAL AGENT Work Phone: [facility] 01-06-2024 11:12-0400 SaO2% (BldA) [Mass fraction] 97 % Zeny Genaro AIR CONDITIONING SUPERVISOR.THEATRICAL AGENT Work Phone: [facility] 01-06-2024 11:12-0400 Systolic blood pressure 90 mm[Hg] Zeny Genaro AIR CONDITIONING SUPERVISOR.THEATRICAL AGENT Work Phone: [facility] 12-14-2023 13:40-0400 Diastolic blood pressure 80 mm[Hg] Zeny Genaro AIR CONDITIONING SUPERVISOR.THEATRICAL AGENT Work Phone: [facility] 12-14-2023 13:40-0400 Systolic blood pressure 120 mm[Hg] Zeny Genaro AIR CONDITIONING SUPERVISOR.THEATRICAL AGENT Work Phone: [facility] 12-14-2023 13:34-0400 Body mass index (BMI) [Ratio] 23.88 kg/m2 Zeny Genaro AIR CONDITIONING SUPERVISOR.THEATRICAL AGENT Work Phone: [facility] 12-14-2023 13:34-0400 Body weight 82.1 kg Zeny Genaro AIR CONDITIONING SUPERVISOR.THEATRICAL AGENT Work Phone: [facility] 12-14-2023 13:34-0400 Heart rate 89 /min Zeny Genaro AIR CONDITIONING SUPERVISOR.THEATRICAL AGENT Work Phone: [facility] 12-14-2023 13:34-0400 SaO2% (BldA) [Mass fraction] 98 % Zeny Lam APRN.THEATRICAL AGENT Work Phone: [facility] 11-16-2023 13:17-0400 Body height 185.4 cm Micah Portillo APRN.THEATRICAL AGENT, DNP Work Phone: [facility] 11-16-2023 13:17-0400 Body mass index (BMI) [Ratio] 24.14 kg/m2 Micah Portillo APRN.THEATRICAL AGENT, DNP Work Phone: [facility] 11-16-2023 13:17-0400 Body temperature 97.5 [degF] Micah Portillo APRN.THEATRICAL AGENT, DNP Work Phone: [facility] 11-16-2023 13:17-0400 Body weight 83.01 kg Micah Portillo APRN.THEATRICAL AGENT, DNP Work Phone: [facility] 11-16-2023 13:17-0400 Diastolic blood pressure 78 mm[Hg] Micah Portillo APRN.[facility], DNP Work Phone: [facility] 11-16-2023 13:17-0400 Heart rate 94 /min Micah Portillo APRN.[facility], DNP Work Phone: [facility] 11-16-2023 13:17-0400 Respiratory rate 18 /min Micah Portillo APRN.THEATRICAL AGENT, DNP Work Phone: [facility] 11-16-2023 13:17-0400 SaO2% (BldA) [Mass fraction] 98 % Micah Portillo APRN.THEATRICAL AGENT, DNP Work Phone: [facility] 11-16-2023 13:17-0400 Systolic blood pressure 110 mm[Hg] Micah Portillo APRN.THEATRICAL AGENT, DNP Work Phone: [facility] 09-15-2023 12:54-0400 Diastolic blood pressure 60 mm[Hg] Zeny Lam APRN.THEATRICAL AGENT Work Phone: [facility] 09-15-2023 12:54-0400 Systolic blood pressure 110 mm[Hg] Zeny Genaro AIR CONDITIONING SUPERVISOR.THEATRICAL AGENT Work Phone: [facility] 09-15-2023 12:51-0400 Body height 185.4 cm Zeny Genaro AIR CONDITIONING SUPERVISOR.THEATRICAL AGENT Work Phone: [facility] 09-15-2023 12:51-0400 Body mass index (BMI) [Ratio] 22.96 kg/m2 Zeny Genaro AIR CONDITIONING SUPERVISOR.THEATRICAL AGENT Work Phone: [facility] 09-15-2023 12:51-0400 Body weight 78.93 kg Zeny Genaro AIR CONDITIONING SUPERVISOR.THEATRICAL AGENT Work Phone: [facility] 09-15-2023 12:51-0400 Heart rate 89 /min Zeny Genaro AIR CONDITIONING SUPERVISOR.THEATRICAL AGENT Work Phone: [facility] 09-15-2023 12:51-0400 SaO2% (BldA) [Mass fraction] 97 % Zeny Genaro AIR CONDITIONING SUPERVISOR.THEATRICAL AGENT Work Phone: [facility] 08-27-2023 13:36-0400 Body height 185.4 cm Irene Moraes MD Work Phone: [facility] 08-27-2023 13:36-0400 Body mass index (BMI) [Ratio] 22.22 kg/m2 Irene Moraes MD Work Phone: [facility] 08-27-2023 13:36-0400 Body weight 76.4 kg Irene Moraes MD Work Phone: [facility] 08-27-2023 13:36-0400 Diastolic blood pressure 81 mm[Hg] Irene Moraes MD Work Phone: [facility] 08-27-2023 13:36-0400 Heart rate 101 /min Irene Moraes MD Work Phone: [facility] 08-27-2023 13:36-0400 Systolic blood pressure 119 mm[Hg] Irene Moraes MD Work Phone: [facility] 08-25-2023 09:30-0400 Body mass index (BMI) [Ratio] 22.03 kg/m2 Zeny Genaro AIR CONDITIONING SUPERVISOR.THEATRICAL AGENT Work Phone: [facility] 08-25-2023 09:30-0400 Body weight 75.75 kg Zeny Genaro AIR CONDITIONING SUPERVISOR.THEATRICAL AGENT Work Phone: [facility] 08-25-2023 09:30-0400 Diastolic blood pressure 52 mm[Hg] Zeny Genaro AIR CONDITIONING SUPERVISOR.THEATRICAL AGENT Work Phone: [facility] 08-25-2023 09:30-0400 Heart rate 98 /min Zeny Genaro AIR CONDITIONING SUPERVISOR.THEATRICAL AGENT Work Phone: [facility] 08-25-2023 09:30-0400 SaO2% (BldA) [Mass fraction] 97 % Zeny Genaro AIR CONDITIONING SUPERVISOR.THEATRICAL AGENT Work Phone: [facility] 08-25-2023 09:30-0400 Systolic blood pressure 88 mm[Hg] Zeny Genaro AIR CONDITIONING SUPERVISOR.THEATRICAL AGENT Work Phone: [facility] 08-10-2023 12:54-0400 Body height 185.4 cm Micah Portillo APRN.THEATRICAL AGENT, DNP Work Phone: [facility] 08-10-2023 12:54-0400 Body mass index (BMI) [Ratio] 22.56 kg/m2 Micah Portillo APRN.[facility], DNP Work Phone: [facility] 08-10-2023 12:54-0400 Body weight 77.56 kg Micah Portillo APRN.[facility], DNP Work Phone: [facility] 08-10-2023 12:54-0400 Diastolic blood pressure 65 mm[Hg] Micah Portillo APRN.THEATRICAL AGENT, DNP Work Phone: [facility] 08-10-2023 12:54-0400 Heart rate 63 /min Micah Portillo APRN.THEATRICAL AGENT, DNP Work Phone: [facility] 08-10-2023 12:54-0400 Respiratory rate 16 /min Micah Portillo APRN.THEATRICAL AGENT, DNP Work Phone: [facility] 08-10-2023 12:54-0400 Systolic blood pressure 117 mm[Hg] Micah Portillo APRN.THEATRICAL AGENT, DNP Work Phone: [facility] 07-27-2023 13:03-0400 Body mass index (BMI) [Ratio] 22.3 kg/m2 Zeny Genaro AIR CONDITIONING SUPERVISOR.THEATRICAL AGENT Work Phone: [facility] 07-27-2023 13:03-0400 Body weight 76.66 kg Zeny Genaro AIR CONDITIONING SUPERVISOR.THEATRICAL AGENT Work Phone: [facility] 07-27-2023 13:03-0400 Diastolic blood pressure 60 mm[Hg] Zeny Genaro AIR CONDITIONING SUPERVISOR.THEATRICAL AGENT Work Phone: [facility] 07-27-2023 13:03-0400 Heart rate 65 /min Zeny Genaro AIR CONDITIONING SUPERVISOR.THEATRICAL AGENT Work Phone: [facility] 07-27-2023 13:03-0400 SaO2% (BldA) [Mass fraction] 96 % Zeny Genaro AIR CONDITIONING SUPERVISOR.THEATRICAL AGENT Work Phone: [facility] 07-27-2023 13:03-0400 Systolic blood pressure 114 mm[Hg] Zeny Genaro AIR CONDITIONING SUPERVISOR.THEATRICAL AGENT Work Phone: [facility] 07-21-2023 10:39-0400 Diastolic blood pressure 70 mm[Hg] Edgar Loaiza DO Work Phone: [facility] 07-21-2023 10:39-0400 Heart rate 73 /min Edgar Loaiza DO Work Phone: [facility] 07-21-2023 10:39-0400 SaO2% (BldA) [Mass fraction] 96 % Edgar Loaiza DO Work Phone: [facility] 07-21-2023 10:39-0400 Systolic blood pressure 123 mm[Hg] Edgar Loaiza DO Work Phone: [facility] 07-18-2023 09:02-0400 Body height 185.4 cm Franc Hills MD Work Phone: [facility] 07-18-2023 09:02-0400 Body temperature 98.4 [degF] Franc Hills MD Work Phone: [facility] 07-18-2023 09:02-0400 Body weight 72.12 kg Franc Hills MD Work Phone: [facility] 07-18-2023 09:02-0400 Diastolic blood pressure 50 mm[Hg] Franc Hills MD Work Phone: [facility] 07-18-2023 09:02-0400 Heart rate 62 /min Franc Hills MD Work Phone: [facility] 07-18-2023 09:02-0400 Respiratory rate 12 /min Franc Hills MD Work Phone: [facility] 07-18-2023 09:02-0400 SaO2% (BldA) [Mass fraction] 97 % Franc Hills MD Work Phone: [facility] 07-18-2023 09:02-0400 Systolic blood pressure 114 mm[Hg] Franc Hills MD Work Phone: [facility] 06-29-2023 11:15-0400 Body weight 74.75 kg Zeny Genaro AIR CONDITIONING SUPERVISOR.THEATRICAL AGENT Work Phone: [facility] 06-29-2023 11:15-0400 Diastolic blood pressure 68 mm[Hg] Zeny Genaro AIR CONDITIONING SUPERVISOR.THEATRICAL AGENT Work Phone: [facility] 06-29-2023 11:15-0400 Heart rate 70 /min Zeny Genaro AIR CONDITIONING SUPERVISOR.THEATRICAL AGENT Work Phone: [facility] 06-29-2023 11:15-0400 Respiratory rate 16 /min Zeny Genaro AIR CONDITIONING SUPERVISOR.THEATRICAL AGENT Work Phone: [facility] 06-29-2023 11:15-0400 SaO2% (BldA) [Mass fraction] 97 % Zeny Genaro AIR CONDITIONING SUPERVISOR.THEATRICAL AGENT Work Phone: [facility] 06-29-2023 11:15-0400 Systolic blood pressure 124 mm[Hg] Zeny Genaro AIR CONDITIONING SUPERVISOR.THEATRICAL AGENT Work Phone: [facility] 06-15-2023 13:01-0400 Body weight 75.3 kg Sunny Mercedes MD Work Phone: [facility] 06-15-2023 13:01-0400 Diastolic blood pressure 52 mm[Hg] Sunny Mercedes MD Work Phone: [facility] 06-15-2023 13:01-0400 Heart rate 64 /min Sunny Mercedes MD Work Phone: [facility] 06-15-2023 13:01-0400 SaO2% (BldA) [Mass fraction] 98 % Sunny Mercedes MD Work Phone: [facility] 06-15-2023 13:01-0400 Systolic blood pressure 84 mm[Hg] Sunny Mercedes MD Work Phone: [facility] 05-26-2023 10:25-0500 Diastolic blood pressure 78 mm[Hg] Edgar Loaiza DO Work Phone: [facility] 05-26-2023 10:25-0500 Heart rate 85 /min Edgar Loaiza DO Work Phone: [facility] 05-26-2023 10:25-0500 SaO2% (BldA) [Mass fraction] 97 % Edgar Loaiza DO Work Phone: [facility] 05-26-2023 10:25-0500 Systolic blood pressure 124 mm[Hg] Edgar Loaiza DO Work Phone: [facility] 05-18-2023 13:58-0500 Body weight 75.75 kg Zeny Genaro AIR CONDITIONING SUPERVISOR.THEATRICAL AGENT Work Phone: [facility] 05-18-2023 13:58-0500 Diastolic blood pressure 72 mm[Hg] Zeny Genaro AIR CONDITIONING SUPERVISOR.THEATRICAL AGENT Work Phone: [facility] 05-18-2023 13:58-0500 Heart rate 86 /min Zeny Genaro AIR CONDITIONING SUPERVISOR.THEATRICAL AGENT Work Phone: [facility] 05-18-2023 13:58-0500 Respiratory rate 16 /min Zeny Genaro AIR CONDITIONING SUPERVISOR.THEATRICAL AGENT Work Phone: [facility] 05-18-2023 13:58-0500 Systolic blood pressure 128 mm[Hg] Zeny Genaro AIR CONDITIONING SUPERVISOR.THEATRICAL AGENT Work Phone: [facility] 01-23-2023 14:13-0400 Body weight 77.11 kg Zeny Genaro AIR CONDITIONING SUPERVISOR.THEATRICAL AGENT Work Phone: [facility] 01-23-2023 14:13-0400 Diastolic blood pressure 60 mm[Hg] Zeny Genaro AIR CONDITIONING SUPERVISOR.THEATRICAL AGENT Work Phone: [facility] 01-23-2023 14:13-0400 Heart rate 75 /min Zeny Genaro AIR CONDITIONING SUPERVISOR.THEATRICAL AGENT Work Phone: [facility] 01-23-2023 14:13-0400 SaO2% (BldA) [Mass fraction] 97 % Zeny Genaro AIR CONDITIONING SUPERVISOR.THEATRICAL AGENT Work Phone: [facility] 01-23-2023 14:13-0400 Systolic blood pressure 100 mm[Hg] Zeny Genaro AIR CONDITIONING SUPERVISOR.THEATRICAL AGENT Work Phone: [facility] 01-19-2023 12:58-0400 Body weight 79.83 kg Mckinley Leal MD Work Phone: [facility] 01-19-2023 12:58-0400 Heart rate 69 /min Mckinley Leal MD Work Phone: [facility] 01-19-2023 12:58-0400 SaO2% (BldA) [Mass fraction] 96 % Mckinley Leal MD Work Phone: [facility] 12-29-2022 14:52-0400 Body weight 77.11 kg Zeny Genaro AIR CONDITIONING SUPERVISOR.THEATRICAL AGENT Work Phone: [facility] 12-29-2022 14:52-0400 Diastolic blood pressure 60 mm[Hg] Zeny Genaro AIR CONDITIONING SUPERVISOR.THEATRICAL AGENT Work Phone: [facility] 12-29-2022 14:52-0400 Heart rate 93 /min Zeny Genaro AIR CONDITIONING SUPERVISOR.THEATRICAL AGENT Work Phone: [facility] 12-29-2022 14:52-0400 SaO2% (BldA) [Mass fraction] 96 % Zeny Lam AIR CONDITIONING SUPERVISOR.THEATRICAL AGENT Work Phone: [facility] 12-29-2022 14:52-0400 Systolic blood pressure 98 mm[Hg] Zeny Lam AIR CONDITIONING SUPERVISOR.THEATRICAL AGENT Work Phone: [facility] 11-24-2022 17:15-0400 Body weight 79.06 kg Franc Hills MD Work Phone: [facility] 11-24-2022 17:15-0400 Diastolic blood pressure 84 mm[Hg] Franc Hills MD Work Phone: [facility] 11-24-2022 17:15-0400 Heart rate 72 /min Franc Hills MD Work Phone: [facility] 11-24-2022 17:15-0400 Systolic blood pressure 128 mm[Hg] Franc Hills MD Work Phone: [facility] 11-10-2022 14:31-0400 Body height 185.4 cm Salas Johns MD Work Phone: [facility] 11-10-2022 14:31-0400 Body weight 80.47 kg Salas Johns MD Work Phone: [facility] 11-10-2022 14:31-0400 Diastolic blood pressure 73 mm[Hg] Salas Johns MD Work Phone: [facility] 11-10-2022 14:31-0400 Heart rate 72 /min Salas Johns MD Work Phone: [facility] 11-10-2022 14:31-0400 SaO2% (BldA) [Mass fraction] 97 % Salas Johns MD Work Phone: [facility] 11-10-2022 14:31-0400 Systolic blood pressure 132 mm[Hg] Salas Johns MD Work Phone: [facility] 08-11-2022 15:01-0400 Body weight 81.19 kg Franc Hills MD Work Phone: [facility] 08-11-2022 15:01-0400 Diastolic blood pressure 72 mm[Hg] Franc Hills MD Work Phone: [facility] 08-11-2022 15:01-0400 Heart rate 80 /min Franc Hills MD Work Phone: [facility] 08-11-2022 15:01-0400 Respiratory rate 16 /min Franc Hills MD Work Phone: [facility] 08-11-2022 15:01-0400 Systolic blood pressure 118 mm[Hg] Franc Hills MD Work Phone: [facility] 06-02-2022 16:47-0500 Diastolic blood pressure 78 mm[Hg] Franc Hills MD Work Phone: [facility] 06-02-2022 16:47-0500 Heart rate 61 /min Franc Hills MD Work Phone: [facility] 06-02-2022 16:47-0500 Systolic blood pressure 147 mm[Hg] Franc Hills MD Work Phone: [facility] 06-02-2022 16:35-0500 Body height 182.9 cm Franc Hills MD Work Phone: [facility] 06-02-2022 16:35-0500 Body temperature 96.91 [degF] Franc Hills MD Work Phone: [facility] 06-02-2022 16:35-0500 Body weight 83.92 kg Franc Hills MD Work Phone: [facility] 06-02-2022 16:35-0500 Respiratory rate 20 /min Franc Hills MD Work Phone: [facility] 03-24-2022 14:36-0500 Diastolic blood pressure 52 mm[Hg] [facility] Work Phone: 03-24-2022 14:36-0500 Heart rate 71 /min [facility] Work Phone: 03-24-2022 14:36-0500 Respiratory rate 18 /min [facility] Work Phone: 03-24-2022 14:36-0500 SaO2% (BldA) [Mass fraction] 100 % [facility] Work Phone: 03-24-2022 14:36-0500 Systolic blood pressure 87 mm[Hg] [facility] Work Phone: 03-24-2022 13:45-0500 Body temperature 97 [degF] [facility] Work Phone: 03-24-2022 11:19-0500 Body height 185.42 cm [facility] Work Phone: 03-24-2022 11:19-0500 Body mass index (BMI) [Ratio] 22.9 kg/m2 [facility] Work Phone: 03-24-2022 11:19-0500 Body weight 79 kg [facility] Work Phone: 02-03-2022 12:59-0400 Body weight 83.01 kg Bonnie Sharif AIR CONDITIONING SUPERVISOR.SENIOR BUSINESS DEVELOPMENT ANALYST Work Phone: [facility] 02-03-2022 12:59-0400 Diastolic blood pressure 74 mm[Hg] Bonnie Sharif AIR CONDITIONING SUPERVISOR.SENIOR BUSINESS DEVELOPMENT ANALYST Work Phone: [facility] 02-03-2022 12:59-0400 Respiratory rate 16 /min Bonnie Sharif AIR CONDITIONING SUPERVISOR.SENIOR BUSINESS DEVELOPMENT ANALYST Work Phone: [facility] 02-03-2022 12:59-0400 Systolic blood pressure 126 mm[Hg] Bonnie Sharif AIR CONDITIONING SUPERVISOR.SENIOR BUSINESS DEVELOPMENT ANALYST Work Phone: [facility] 11-13-2021 15:06-0400 Diastolic blood pressure 54 mm[Hg] Franc Hills MD Work Phone: [facility] 11-13-2021 15:06-0400 Systolic blood pressure 104 mm[Hg] Franc Hills MD Work Phone: [facility] 11-13-2021 14:31-0400 Body temperature 97.2 [degF] Franc Hills MD Work Phone: [facility] 11-13-2021 14:31-0400 Body weight 81.19 kg Franc Hills MD Work Phone: [facility] 11-13-2021 14:31-0400 Heart rate 60 /min Franc Hills MD Work Phone: [facility] 11-13-2021 14:31-0400 Respiratory rate 16 /min Franc Hills MD Work Phone: [facility] 11-12-2021 13:10-0400 Body height 185.4 cm Micah Rosenberg MD Work Phone: [facility] 11-12-2021 13:10-0400 Body temperature 97.9 [degF] Micah Rosenberg MD Work Phone: [facility] 11-12-2021 13:10-0400 Body weight 82.1 kg Micah Rosenberg MD Work Phone: [facility] 11-12-2021 13:10-0400 Diastolic blood pressure 80 mm[Hg] Micah Rosenberg MD Work Phone: [facility] 11-12-2021 13:10-0400 Heart rate 71 /min Micah Rosenberg MD Work Phone: [facility] 11-12-2021 13:10-0400 SaO2% (BldA) [Mass fraction] 99 % Micah Rosenberg MD Work Phone: [facility] 11-12-2021 13:10-0400 Systolic blood pressure 134 mm[Hg] Micah Rosenberg MD Work Phone: [facility] 10-16-2021 15:41-0400 Diastolic blood pressure 78 mm[Hg] Franc Hills MD Work Phone: [facility] 10-16-2021 15:41-0400 Heart rate 66 /min Franc Hills MD Work Phone: [facility] 10-16-2021 15:41-0400 Systolic blood pressure 139 mm[Hg] Franc Hills MD Work Phone: [facility] 10-16-2021 15:29-0400 Body temperature 97 [degF] Franc Hills MD Work Phone: [facility] 10-16-2021 15:29-0400 Body weight 80.65 kg Franc Hills MD Work Phone: [facility] 10-16-2021 15:29-0400 Respiratory rate 20 /min Franc Hills MD Work Phone: [facility] 09-28-2021 16:13-0400 Diastolic blood pressure 76 mm[Hg] [facility] Work Phone: 09-28-2021 16:13-0400 Heart rate 81 /min [facility] Work Phone: 09-28-2021 16:13-0400 Respiratory rate 16 /min [facility] Work Phone: 09-28-2021 16:13-0400 SaO2% (BldA) [Mass fraction] 97 % [facility] Work Phone: 09-28-2021 16:13-0400 Systolic blood pressure 124 mm[Hg] [facility] Work Phone: 09-28-2021 13:22-0400 Body height 185.42 cm [facility] Work Phone: 09-28-2021 13:22-0400 Body mass index (BMI) [Ratio] 48.5 kg/m2 [facility] Work Phone: 09-28-2021 13:22-0400 Body temperature 97.4 [degF] [facility] Work Phone: 09-28-2021 13:22-0400 Body weight 167 kg [facility] Work Phone: 09-23-2021 09:13-0400 Body weight 81.65 kg Teri Yasmani AIR CONDITIONING SUPERVISOR.THEATRICAL AGENT Work Phone: [facility] 09-23-2021 09:13-0400 Diastolic blood pressure 78 mm[Hg] Teri Yasmani AIR CONDITIONING SUPERVISOR.THEATRICAL AGENT Work Phone: [facility] 09-23-2021 09:13-0400 Heart rate 64 /min Teri Yasmani AIR CONDITIONING SUPERVISOR.THEATRICAL AGENT Work Phone: [facility] 09-23-2021 09:13-0400 Respiratory rate 16 /min Teri Yasmani AIR CONDITIONING SUPERVISOR.THEATRICAL AGENT Work Phone: [facility] 09-23-2021 09:13-0400 SaO2% (BldA) [Mass fraction] 98 % Teri Yasmani AIR CONDITIONING SUPERVISOR.THEATRICAL AGENT Work Phone: [facility] 09-23-2021 09:13-0400 Systolic blood pressure 132 mm[Hg] Teri Yasmani AIR CONDITIONING SUPERVISOR.THEATRICAL AGENT Work Phone: [facility] 08-22-2021 18:14-0400 Diastolic blood pressure 77 mm[Hg] Franc Hills MD Work Phone: [facility] 08-22-2021 18:14-0400 Heart rate 65 /min Franc Hills MD Work Phone: [facility] 08-22-2021 18:14-0400 Systolic blood pressure 150 mm[Hg] Franc Hills MD Work Phone: [facility] 08-22-2021 17:45-0400 Body temperature 97.81 [degF] Franc Hills MD Work Phone: [facility] 08-22-2021 17:45-0400 Body weight 81.19 kg Franc Hills MD Work Phone: [facility] 08-22-2021 17:45-0400 Respiratory rate 16 /min Franc Hills MD Work Phone: [facility] 08-22-2021 17:45-0400 SaO2% (BldA) [Mass fraction] 96 % Franc Hills MD Work Phone: [facility] 08-16-2021 13:17-0400 Body height 185.4 cm Mj Dos Santos MD Work Phone: [facility] 08-16-2021 13:17-0400 Body weight 81.19 kg Mj Dos Santos MD Work Phone: [facility] 08-16-2021 13:17-0400 Diastolic blood pressure 73 mm[Hg] Mj Dos Santos MD Work Phone: [facility] 08-16-2021 13:17-0400 Heart rate 63 /min Mj Dos Santos MD Work Phone: [facility] 08-16-2021 13:17-0400 SaO2% (BldA) [Mass fraction] 97 % Mj Dos Santos MD Work Phone: [facility] 08-16-2021 13:17-0400 Systolic blood pressure 141 mm[Hg] Mj Dos Santos MD Work Phone: [facility] 07-03-2021 12:44-0400 Body weight 83.46 kg Sara Older AIR CONDITIONING SUPERVISOR.THEATRICAL AGENT Work Phone: [facility] 07-03-2021 12:44-0400 Diastolic blood pressure 62 mm[Hg] Sara Older AIR CONDITIONING SUPERVISOR.THEATRICAL AGENT Work Phone: [facility] 07-03-2021 12:44-0400 Heart rate 66 /min Sara Older AIR CONDITIONING SUPERVISOR.THEATRICAL AGENT Work Phone: [facility] 07-03-2021 12:44-0400 Respiratory rate 16 /min Sara Older AIR CONDITIONING SUPERVISOR.THEATRICAL AGENT Work Phone: [facility] 07-03-2021 12:44-0400 SaO2% (BldA) [Mass fraction] 97 % Sara Older AIR CONDITIONING SUPERVISOR.THEATRICAL AGENT Work Phone: [facility] 07-03-2021 12:44-0400 Systolic blood pressure 112 mm[Hg] Sarashannon Baxter APRN.THEATRICAL AGENT Work Phone: [facility] Encounters Encounter Date Encounter Type Care Provider Facility Start: 11-19-2024 End: 11-20-2024 Emergency department patient visit Dr. 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; IFG (impaired fasting glucose); Primary hypertension; Vitamin D deficiency; Insomnia, unspecified type Start: 11-15-2024 End: 11-15-2024 ambulatory ZENY LAM Facility:[facility] Start: 11-09-2024 End: 11-09-2024 ambulatory ZENY [facility] Facility:[facility] Start: 10-28-2024 End: 10-28-2024 Telephone encounter Zeny Lam APRN.THEATRICAL AGENT Work Phone: [facility] [place] Comment on above: Anticoagulation Start: 10-28-2024 End: 10-28-2024 ambulatory ZENY LAM Facility:[facility] Start: 10-26-2024 End: 10-26-2024 Telephone encounter Shruti Carrington APRN.THEATRICAL AGENT Work Phone: Pulmonary Medicine Comment on above: Patient Update; Than k you Start: 10-25-2024 End: 10-26-2024 Telephone encounter Zeny Lam APRN.THEATRICAL AGENT Work Phone: [facility] Comment on above: Medication Question; bp reading Start: 10-22-2024 End: 10-24-2024 ambulatory Mirlande Funez MD Work Phone: Pulmonary Medicine Comment on above: Chest X-ray Start: 10-21-2024 End: 10-24-2024 ambulatory [facility] Comment on above: Covid shot Start: 10-20-2024 End: 10-20-2024 ambulatory MIRLANDE FUNEZ Facility:[facility] Start: 10-20-2024 End: 10-20-2024 Subsequent hospital visit by physician Mala [facility] [place] Work Phone: Radiology Comment on above: SOB (shortness of br eath) [R06.02] Start: 10-20-2024 End: 10-20-2024 Patient encounter procedure Mirlande Funez MD Work Phone: Pulmonary Medicine Comment on above: SOB (shortness of br eath) (Primary Dx); Mild persistent asthma without complication (HCC); History of pulmonary embolism Start: 10-20-2024 End: 10-20-2024 ambulatory ZENY LAM Facility:[facility] Start: 10-17-2024 End: 10-18-2024 Telephone encounter Zeny Lam APRN.THEATRICAL AGENT Work Phone: [facility] Comment on above: Medication Question Start: 10-14-2024 End: 10-14-2024 Telephone encounter Zeny Lam APRN.THEATRICAL AGENT Work Phone: [facility] [place] Comment on above: Anticoagulation Start: 10-14-2024 End: 10-14-2024 ambulatory ZENY LAM Facility:[facility] Start: 10-10-2024 End: 10-11-2024 Telephone encounter Zeny Lam APRN.THEATRICAL AGENT Work Phone: [facility] [place] Comment on above: Patient Update Start: 10-09-2024 End: 10-10-2024 ambulatory [facility] [place] Comment on above: Olmesartan Nifedipine Start: 10-05-2024 End: 10-05-2024 Telephone encounter Zeny Lam APRN.THEATRICAL AGENT Work Phone: [facility] [place] Comment on above: Anticoagulation Start: 10-05-2024 End: 10-05-2024 ambulatory [facility] [place] Comment on above: Bone Density test Start: 09-27-2024 End: 09-27-2024 ambulatory [facility] [place] Comment on above: Meeting with Bradley Funez Start: 09-21-2024 End: 09-21-2024 Follow-up encounter Gabby Rm LPN [facility] [place] Comment on above: Anticoagulation Start: 09-21-2024 End: 09-23-2024 Telephone encounter Zeny Lam AIR CONDITIONING SUPERVISOR.THEATRICAL AGENT Work Phone: [facility] [place] Comment on above: Anticoagulation Start: 09-21-2024 End: 09-21-2024 ambulatory [facility] Facility:[facility] Start: 09-14-2024 End: 09-19-2024 Telephone encounter Mirlande Funez MD Work Phone: Pulmonary Medicine Comment on above: Patient Question Orders Start: 09-12-2024 End: 09-12-2024 Telephone encounter Zeny Lam AIR CONDITIONING SUPERVISOR.THEATRICAL AGENT Work Phone: [facility] [place] Comment on above: Patient Question Start: 09-08-2024 End: 09-09-2024 Refill Zeny Lam AIR CONDITIONING SUPERVISOR.THEATRICAL AGENT Work Phone: [facility] Comment on above: Refill Request Change Pharmacy Start: 09-07-2024 End: 09-07-2024 Telephone encounter Zeny Lam AIR CONDITIONING SUPERVISOR.THEATRICAL AGENT Work Phone: [facility] Comment on above: Anticoagulation Start: 09-07-2024 End: 09-07-2024 [facility] Facility:[facility] Start: 09-05-2024 End: 09-06-2024 Refill Bonnie Sharif AIR CONDITIONING SUPERVISOR.SENIOR BUSINESS DEVELOPMENT ANALYST Work Phone: [facility] [place] Comment on above: Refill Request Start: 08-24-2024 End: 08-24-2024 [facility] Facility:[facility] Start: 08-21-2024 End: 08-22-2024 ambulatory [facility] [place] Comment on above: Nasacort Start: 08-19-2024 End: 08-22-2024 Telephone encounter Zeny Lam AIR CONDITIONING SUPERVISOR.THEATRICAL AGENT Work Phone: [facility] Comment on above: Patient Question Start: 08-15-2024 End: 08-15-2024 ambulatory [facility] Facility:[facility] Start: 08-15-2024 End: 08-15-2024 Patient encounter procedure Zeny Lam APRN.THEATRICAL AGENT Work Phone: [facility] Comment on above: Medicare annual well ness visit, subsequent (Primary Dx); Ulcer of toe of left foot, unspecified ulcer stage (HCC); Shortness of breath; MCI (mild cognitive impairment); Primary hypertension Start: 08-11-2024 End: 08-11-2024 Patient encounter procedure Kvng Magaña MD Work Phone: Ophthalmology Comment on above: Macular hole of left eye (Primary Dx); Posterior vitreous detachment of right eye Start: 08-11-2024 End: 08-12-2024 ambulatory [facility] Comment on above: Blood pressure readi ngs. Start: 08-10-2024 End: 10-10-2024 Follow-up encounter Zeny Lam APRN.CNP Work Phone: [facility] Start: 08-10-2024 End: 08-10-2024 Telephone encounter Zeny Lam APRN.THEATRICAL AGENT Work Phone: [facility] Comment on above: Anticoagulation Start: 08-10-2024 End: 08-10-2024 ambulatory ZENY LAM Facility:[facility] Start: 08-09-2024 End: 08-09-2024 Patient encounter procedure Walt [facility] Comment on above: Chronic low back sharon n without sciatica, unspecified back pain laterality (Primary Dx) Start: 08-09-2024 End: 08-09-2024 ambulatory WALT YANG Facility:[facility] Start: 08-08-2024 End: 08-08-2024 Patient encounter procedure Sunny Mercedes MD Work Phone: Cardiology Comment on above: PAD (peripheral bart ry disease) (Primary Dx); Bilateral carotid artery stenosis; Primary hypertension; Mixed hyperlipidemia; History of left-sided carotid endarterectomy; 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) Start: 08-08-2024 End: 08-08-2024 ambulatory SUNNY MERCEDES Facility:[facility] Start: 08-06-2024 End: 08-06-2024 ambulatory Tonie Mai RN [facility] Comment on above: Patient Update Start: 08-05-2024 End: 08-05-2024 ambulatory [facility] [place] Comment on above: Test today Start: 08-04-2024 End: 08-04-2024 Patient encounter procedure [facility] Work Phone: [facility] Start: 08-04-2024 End: 08-08-2024 ambulatory [facility] Work Phone: [facility] Comment on above: Spirometry Pulmonary Function T est Start: 07-28-2024 End: 07-28-2024 ambulatory GAYLE GREEN Facility:[facility] Start: 07-27-2024 End: 07-27-2024 Telephone encounter Zeny Lam APRN.CNP Work Phone: [facility] [place] Comment on above: Anticoagulation Start: 07-27-2024 End: 07-27-2024 ambulatory ZENY LAM Facility:[facility] Start: 07-26-2024 End: 07-26-2024 Patient encounter procedure Walt Yang [facility] Comment on above: Chronic low back sharon n without sciatica, unspecified back pain laterality (Primary Dx) Start: 07-26-2024 End: 07-26-2024 ambulatory WALT YANG [facility] Start: 07-25-2024 End: 07-25-2024 Patient encounter procedure Zeny Lam APRN.THEATRICAL AGENT Work Phone: [facility] Comment on above: Shortness of breath (Primary Dx); Primary hypertension; 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); Chronic low back pain without sciatica, unspecified back pain laterality; Neck pain Start: 07-25-2024 End: 07-25-2024 ambulatory ZENY ALM Facility:[facility] Start: 07-19-2024 End: 09-18-2024 Follow-up encounter Teri Gruber APRN.CNP Work Phone: [facility] [place] Start: 07-18-2024 End: 07-18-2024 Telephone encounter Zeny Lam APRN.CNP Work Phone: [facility] [place] Comment on above: Patient Update (re: stress test); Appointment; Patient Question (re: Nifedipine) Start: 07-18-2024 End: 07-18-2024 Nursing evaluation of patient and report Nurse Card Wstr Work Phone: Cardiology Comment on above: Shortness of breath Start: 07-18-2024 End: 07-18-2024 ambulatory ZENY LAM Facility:[facility] Start: 07-18-2024 End: 07-18-2024 [facility] Start: 07-18-2024 End: 07-18-2024 Subsequent hospital visit by physician [facility] Work Phone: Nuclear Medicine Comment on above: Shortness of breath [R06.02] Start: 07-13-2024 End: 07-13-2024 Follow-up encounter Gabby Rm LPN Internal Medicine [place] Comment on above: Opened In Error Start: 07-13-2024 End: 07-13-2024 Telephone encounter Zeny Lam APRN.THEATRICAL AGENT Work Phone: Internal Medicine [place] Comment on above: Anticoagulation Start: 07-13-2024 End: 07-13-2024 ambulatory ZENY LAM Facility:[facility] Start: 07-11-2024 End: 07-11-2024 ambulatory Nurse Card Wstr Work Phone: Cardiology Comment on above: Stress Test Instruct ions for 07/18/24 Start: 07-11-2024 End: 07-11-2024 E-mail encounter from caregiver Nurse Card Wstr Work Phone: Cardiology Start: 07-07-2024 End: 07-22-2024 Telephone encounter Zeny Lam APRN.THEATRICAL AGENT Work Phone: Internal Medicine [place] Comment on above: Patient Update Start: 07-01-2024 End: 07-01-2024 Refill Zeny Lam APRN.THEATRICAL AGENT Work Phone: Internal Medicine [place] Comment on above: Med Change Request Start: 06-29-2024 End: 06-30-2024 Telephone encounter Zeny Lam APRN.THEATRICAL AGENT Work Phone: Family Medicine [place] Comment on above: Anticoagulation Start: 06-29-2024 End: 06-29-2024 ambulatory ZENY LAM Facility:[facility] Start: 06-25-2024 End: 06-27-2024 Refill Zeny Lam APRN.THEATRICAL AGENT Work Phone: Internal Medicine [place] Comment on above: Refill Request Start: 06-23-2024 End: 07-01-2024 ambulatory [facility] Provider Internal Medicine [place] Comment on above: Shortness of breath Start: 06-20-2024 End: 06-21-2024 Telephone encounter Zeny Lam APRN.THEATRICAL AGENT Work Phone: Internal Medicine [place] Start: 06-16-2024 End: 08-16-2024 Follow-up encounter Bonnie Sharif APRN.SENIOR BUSINESS DEVELOPMENT ANALYST Work Phone: Internal Medicine [place] Start: 06-15-2024 End: 06-15-2024 Telephone encounter Zeny Lam APRN.THEATRICAL AGENT Work Phone: Internal Medicine [place] Comment on above: Anticoagulation Start: 06-15-2024 End: 06-15-2024 ambulatory [facility] Provider Internal Medicine [place] Comment on above: Acupuncture Start: 06-10-2024 End: 06-10-2024 ambulatory [facility] Provider Internal Medicine [place] Comment on above: Low pressure causing shortness of breath Start: 06-08-2024 End: 06-08-2024 Refill Gabby Rm LPN Internal Medicine [place] Comment on above: Refill Request Shortness of breath (Primary Dx); Primary hypertension; Chronic low back pain without sciatica, unspecified back pain laterality; Bilateral carotid artery stenosis; Vision abnormalities Start: 06-07-2024 End: 06-08-2024 Refill Arti Baxter APRN.THEATRICAL AGENT Work Phone: Internal Medicine [place] Comment on above: Refill Request Start: 06-06-2024 End: 06-06-2024 Telephone encounter Zeny Lam APRN.THEATRICAL AGENT Work Phone: Internal Medicine [place] Comment on above: Patient Update; Imelda ent Question Start: 06-01-2024 End: 06-02-2024 Telephone encounter Mani Edwards MD Work Phone: Internal Medicine [place] Comment on above: Anticoagulation Start: 06-01-2024 End: 06-01-2024 ambulatory ZENY LAM Facility:[facility] Start: 05-30-2024 End: 06-03-2024 Telephone encounter Zeny Lam APRN.THEATRICAL AGENT Work Phone: Internal Medicine [place] Comment on above: questions regarding testing Start: 05-24-2024 End: 05-24-2024 Patient encounter procedure Edgar Loaiza DO Work Phone: Vascular Surgery Comment on above: PAD (peripheral bart ry disease) (HCC) (Primary Dx); Stenosis of left carotid artery Start: 05-24-2024 End: 05-24-2024 ambulatory EDGAR LOAIZA Facility:[facility] Start: 05-19-2024 End: 05-19-2024 ambulatory GAYLE TESTKARMA Facility:[facility] Start: 05-19-2024 End: 05-19-2024 Patient encounter procedure Gayle Quirozkarma Work Phone: Podiatry Comment on above: Onychomycosis (Prima ry Dx); Pain in toe of left foot; Pain in toe of right foot; PAD (peripheral artery disease) (HCC); Hammer toe, unspecified laterality Start: 05-18-2024 End: 05-18-2024 Telephone encounter Zeny Lam APRN.THEATRICAL AGENT Work Phone: Internal Medicine [place] Comment on above: Anticoagulation Start: 05-18-2024 End: 05-18-2024 ambulatory ZENY LAM Facility:[facility] Start: 05-17-2024 End: 05-17-2024 ambulatory TERI GRUBER Facility:[facility] Start: 05-17-2024 End: 05-17-2024 Office outpatient visit 25 minutes Teri Gruber APRN.THEATRICAL AGENT Work Phone: Family Medicine [place] Comment on above: Shortness of breath (Primary Dx); Chronic low back pain without sciatica, unspecified back pain laterality; Neck pain Start: 05-11-2024 End: 05-11-2024 Telephone encounter Zeny Lam APRN.THEATRICAL AGENT Work Phone: Internal Medicine [place] Comment on above: vaccine question Start: 05-10-2024 End: 05-10-2024 Telephone encounter Zeny Genaro AIR CONDITIONING SUPERVISOR.THEATRICAL AGENT Work Phone: Internal Medicine [place] Comment on above: Anticoagulation Start: 05-10-2024 End: 05-10-2024 ambulatory [facility] Facility:[facility] Start: 04-27-2024 End: 04-27-2024 Telephone encounter Zeny Genaro AIR CONDITIONING SUPERVISOR.THEATRICAL AGENT Work Phone: Internal Medicine [place] Comment on above: Anticoagulation Start: 04-27-2024 End: 04-27-2024 ambulatory [facility] Facility:[facility] Start: 04-12-2024 End: 04-12-2024 Telephone encounter Zeny Genaro AIR CONDITIONING SUPERVISOR.THEATRICAL AGENT Work Phone: Internal Medicine [place] Comment on above: Anticoagulation Start: 04-12-2024 End: 04-12-2024 [facility] Facility:[facility] Start: 03-25-2024 End: 03-25-2024 Telephone encounter Zeny Genaro AIR CONDITIONING SUPERVISOR.THEATRICAL AGENT Work Phone: Internal Medicine [place] Comment on above: Patient Question Start: 03-24-2024 End: 03-24-2024 Telephone encounter Zeny Genaro AIR CONDITIONING SUPERVISOR.THEATRICAL AGENT Work Phone: Internal Medicine [place] Comment on above: Orders Anticoagulation Start: 03-24-2024 End: 03-24-2024 ambulatory ZENY ELIZABETHR Facility:[facility] Start: 03-22-2024 End: 03-25-2024 Telephone encounter Zeny Genaro AIR CONDITIONING SUPERVISOR.THEATRICAL AGENT Work Phone: Internal Medicine [place] Comment on above: Patient Question Patient Question (di toni gilliam) Start: 03-15-2024 End: 03-16-2024 Refill Zeny Genaro AIR CONDITIONING SUPERVISOR.THEATRICAL AGENT Work Phone: Internal Medicine [place] Comment on above: Refill Request Start: 03-10-2024 End: 03-11-2024 Telephone encounter Zeny Genaro AIR CONDITIONING SUPERVISOR.THEATRICAL AGENT Work Phone: Internal Medicine [place] Comment on above: Anticoagulation Start: 03-10-2024 End: 03-10-2024 ambulatory ZENY LAM Facility:[facility] Start: 03-04-2024 End: 03-08-2024 ambulatory Zeny Genaro AIR CONDITIONING SUPERVISOR.THEATRICAL AGENT Work Phone: Internal Medicine [place] Start: 03-04-2024 End: 03-09-2024 Patient encounter procedure Zeny Genaro AIR CONDITIONING SUPERVISOR.THEATRICAL AGENT Work Phone: Internal Medicine [place] Comment on above: Update my INR appoin tments for next year. Refill Request Start: 02-29-2024 End: 02-29-2024 ambulatory ZENY LAM Facility:[facility] Start: 02-29-2024 End: 02-29-2024 Subsequent hospital visit by physician Cheli [facility] (I-Stat) Work Phone: Cat Scan Comment on above: Primary hypertension [I10] Start: 02-25-2024 End: 02-25-2024 Telephone encounter Zeny Lam APRN.THEATRICAL AGENT Work Phone: Internal Medicine [place] Comment on above: Anticoagulation Start: 02-25-2024 End: 02-25-2024 [facility] ZENY LAM Facility:[facility] Start: 02-15-2024 End: 02-15-2024 Patient encounter procedure Zeny Elizabethr AIR CONDITIONING SUPERVISOR.THEATRICAL AGENT Work Phone: Internal Medicine [place] Comment on above: Primary hypertension (Primary Dx); Dizziness; Chronic low back pain without sciatica, unspecified back pain laterality; Neck pain; 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) Start: 02-15-2024 End: 02-15-2024 [facility] ZENY LAM Facility:[facility] Start: 02-15-2024 End: 02-16-2024 Telephone encounter Zeny Genaro AIR CONDITIONING SUPERVISOR.THEATRICAL AGENT Work Phone: Internal Medicine [place] Comment on above: Medication Question Start: 02-14-2024 End: 02-15-2024 ambulatory Zeny Elizabethr AIR CONDITIONING SUPERVISOR.THEATRICAL AGENT Work Phone: Internal Medicine [place] Comment on above: Prescription renewal s. Refill Request Start: 02-09-2024 End: 02-09-2024 Telephone encounter Zeny Lam AIR CONDITIONING SUPERVISOR.THEATRICAL AGENT Work Phone: Internal Medicine [place] Comment on above: Anticoagulation Start: 02-09-2024 End: 02-09-2024 ambulatory ZENY GENARO Facility:[facility] Start: 02-07-2024 End: 02-08-2024 ambulatory Zeny Genaro AIR CONDITIONING SUPERVISOR.THEATRICAL AGENT Work Phone: Internal Medicine [place] Comment on above: Neck X-ray results Start: 02-04-2024 End: 02-05-2024 Telephone encounter Zeny Genaro AIR CONDITIONING SUPERVISOR.THEATRICAL AGENT Work Phone: Internal Medicine [place] Comment on above: Patient Question Start: 02-01-2024 End: 02-01-2024 ambulatory ZENY GENARO Facility:[facility] Start: 02-01-2024 End: 02-01-2024 Subsequent hospital visit by physician Xr [facility] [place] Work Phone: Radiology Comment on above: Neck pain [M54.2] Start: 02-01-2024 End: 02-01-2024 Telephone encounter Zeny Genaro AIR CONDITIONING SUPERVISOR.THEATRICAL AGENT Work Phone: Internal Medicine [place] Start: 01-30-2024 End: 02-01-2024 ambulatory Zeny Genaro AIR CONDITIONING SUPERVISOR.THEATRICAL AGENT Work Phone: Internal Medicine [place] Comment on above: Blood pressure the o ther way. Start: 01-29-2024 End: 01-29-2024 ambulatory Zeny Genaro AIR CONDITIONING SUPERVISOR.THEATRICAL AGENT Work Phone: Internal Medicine [place] Comment on above: Blood pressure Start: 01-29-2024 End: 02-01-2024 Telephone encounter Zeny Genaro AIR CONDITIONING SUPERVISOR.THEATRICAL AGENT Work Phone: Internal Medicine [place] Comment on above: my chart message con verted to phone note, blood pressure is Start: 01-28-2024 End: 01-29-2024 Telephone encounter Zeny Genaro AIR CONDITIONING SUPERVISOR.THEATRICAL AGENT Work Phone: Internal Medicine [place] Comment on above: blood pressure eleva tion Start: 01-26-2024 End: 01-26-2024 Telephone encounter Zeny Genaro AIR CONDITIONING SUPERVISOR.THEATRICAL AGENT Work Phone: Internal Medicine [place] Comment on above: Blood Pressure; Anti coagulation Start: 01-26-2024 End: 01-26-2024 ambulatory ZENY GENARO Facility:[facility] Start: 01-20-2024 End: 01-20-2024 Patient encounter procedure Zeny Genaro AIR CONDITIONING SUPERVISOR.THEATRICAL AGENT Work Phone: Internal Medicine [place] Comment on above: Primary hypertension (Primary Dx); Compression fracture of L1 vertebra with routine healing, subsequent encounter; Chronic bilateral low back pain with bilateral sciatica; Other fatigue; SOB (shortness of breath) Start: 01-20-2024 End: 01-20-[facility]24 [facility] Start: 01-12-2024 End: 01-12-2024 Telephone encounter Zeny Genaro AIR CONDITIONING SUPERVISOR.THEATRICAL AGENT Work Phone: Internal Medicine [place] Comment on above: Anticoagulation Start: 01-12-2024 End: 01-12-2024 [facility] Start: 01-11-2024 End: 01-11-2024 Telephone encounter Zeny Genaro AIR CONDITIONING SUPERVISOR.THEATRICAL AGENT Work Phone: Internal Medicine [place] Comment on above: Patient Update Start: 01-10-2024 End: 01-11-2024 ambulatory Zeny Genaro AIR CONDITIONING SUPERVISOR.THEATRICAL AGENT Work Phone: Internal Medicine [place] Start: 01-10-2024 End: 01-11-2024 Emergency department patient visit Zeny Genaro AIR CONDITIONING SUPERVISOR.THEATRICAL AGENT Work Phone: Internal Medicine [place] Comment on above: Emergency room visit Start: 01-08-2024 End: 01-08-2024 Emergency department patient visit [facility] Facility:[facility] Start: 01-06-2024 End: 01-06-2024 Patient encounter procedure Zeny Genaro AIR CONDITIONING SUPERVISOR.THEATRICAL AGENT Work Phone: Internal Medicine [place] Comment on above: Other fatigue (Prima ry Dx); Side effect of medication; SOB (shortness of breath); Screening for depression Start: 01-06-2024 End: 01-06-2024 [facility] ZENY GENARO Facility:[facility] Start: 01-05-2024 End: 01-05-2024 Telephone encounter Zeny Genaro AIR CONDITIONING SUPERVISOR.THEATRICAL AGENT Work Phone: Internal Medicine [place] Comment on above: Results Start: 01-05-2024 End: 01-05-2024 ambulatory ZENY GENARO Facility:[facility] Start: 01-02-2024 End: 01-04-2024 ambulatory Zeny Genaro AIR CONDITIONING SUPERVISOR.THEATRICAL AGENT Work Phone: Internal Medicine [place] Comment on above: Insurance Start: 01-01-2024 End: 01-01-2024 Telephone encounter Zeny Genaro AIR CONDITIONING SUPERVISOR.THEATRICAL AGENT Work Phone: Internal Medicine [place] Comment on above: Anticoagulation Start: 01-01-2024 End: 01-01-2024 ambulatory ZENY GENARO Facility:[facility] Start: 12-28-2023 End: 12-28-2023 Telephone encounter Zeny Genaro AIR CONDITIONING SUPERVISOR.THEATRICAL AGENT Work Phone: Internal Medicine [place] Comment on above: Anticoagulation Start: 12-28-2023 End: 12-28-2023 ambulatory ZENY GENARO Facility:[facility] Start: 12-27-2023 End: 12-28-2023 Refill Zeny Genaro AIR CONDITIONING SUPERVISOR.THEATRICAL AGENT Work Phone: Internal Medicine [place] Comment on above: Refill Request Start: 12-21-2023 End: 12-21-2023 Telephone encounter Zeny Genaro AIR CONDITIONING SUPERVISOR.THEATRICAL AGENT Work Phone: Internal Medicine [place] Comment on above: Anticoagulation Start: 12-21-2023 End: 12-21-2023 ambulatory ZENY GENARO Facility:[facility] Start: 12-14-2023 End: 12-14-2023 Patient encounter procedure Zeny Genaro AIR CONDITIONING SUPERVISOR.THEATRICAL AGENT Work Phone: Internal Medicine [place] Comment on above: Primary hypertension (Primary Dx); Pain, dental; Compression fracture of L1 vertebra with routine healing, subsequent encounter; Chronic low back pain without sciatica, unspecified back pain laterality Start: 12-14-2023 End: 12-15-2023 ambulatory Zeny Genaro AIR CONDITIONING SUPERVISOR.THEATRICAL AGENT Work Phone: Internal Medicine [place] Comment on above: No questions Start: 12-10-2023 End: 12-10-2023 Telephone encounter Zeny Genaro AIR CONDITIONING SUPERVISOR.THEATRICAL AGENT Work Phone: Internal Medicine [place] Comment on above: Patient Update Start: 12-08-2023 End: 12-08-2023 Refill Zeny Genaro AIR CONDITIONING SUPERVISOR.THEATRICAL AGENT Work Phone: Internal Medicine [place] Comment on above: Refill Request Anticoagulation Start: 12-02-2023 End: 12-02-2023 Refill Zeny Genaro AIR CONDITIONING SUPERVISOR.THEATRICAL AGENT Work Phone: Internal Medicine [place] Comment on above: Refill Request Start: 11-24-2023 End: 11-24-2023 Telephone encounter Zeny Genaro AIR CONDITIONING SUPERVISOR.THEATRICAL AGENT Work Phone: Internal Medicine [place] Comment on above: Results Start: 11-24-2023 End: 11-24-2023 ambulatory ZENY GENARO Facility:[facility] Start: 11-23-2023 End: 11-23-2023 Telephone encounter Zeny Genaro AIR CONDITIONING SUPERVISOR.THEATRICAL AGENT Work Phone: Internal Medicine [place] Comment on above: Patient Question Start: 11-16-2023 End: 11-16-2023 Patient encounter procedure Micah Portillo APRN.THEATRICAL AGENT, DNP Work Phone: Urology Comment on above: Benign prostatic hyp erplasia with nocturia (Primary Dx); Urgency of urination Start: 11-12-2023 End: 11-12-2023 ambulatory Zeny Genaro AIR CONDITIONING SUPERVISOR.THEATRICAL AGENT Work Phone: Internal Medicine [place] Start: 11-12-2023 Follow-up encounter Zeny Cleav er AIR CONDITIONING SUPERVISOR.THEATRICAL AGENT Work Phone: Internal Medicine [place] Comment on above: Follow up out of Net work Acupuncture Schedule Start: 11-12-2023 End: 11-12-2023 Patient encounter procedure Walt [facility] Comment on above: Chronic low back sharon n without sciatica, unspecified back pain laterality (Primary Dx) Start: 11-10-2023 ambulatory Zeny Genaro AIR CONDITIONING SUPERVISOR.THEATRICAL AGENT Work Phone: Internal Medicine [place] Start: 11-10-2023 Follow-up encounter Zeny Cleav er AIR CONDITIONING SUPERVISOR.THEATRICAL AGENT Work Phone: Internal Medicine [place] Comment on above: Acupuncture follow u p Start: 11-10-2023 Telephone encounter Zeny Cleav er AIR CONDITIONING SUPERVISOR.THEATRICAL AGENT Work Phone: [facility] Comment on above: Anticoagulation Start: 10-30-2023 Telephone encounter Zeny Cleav er AIR CONDITIONING SUPERVISOR.THEATRICAL AGENT Work Phone: Family Medicine [place] Comment on above: Patient Update (INR) Start: 10-29-2023 Refill Zeny Genaro AIR CONDITIONING SUPERVISOR.THEATRICAL AGENT Work Phone: Internal Medicine [place] Comment on above: Refill Request Start: 10-23-2023 Telephone encounter Zeny Cleav er AIR CONDITIONING SUPERVISOR.THEATRICAL AGENT Work Phone: Internal Medicine [place] Comment on above: Anticoagulation Start: 10-06-2023 Refill Zeny Genaro AIR CONDITIONING SUPERVISOR.THEATRICAL AGENT Work Phone: Internal Medicine [place] Comment on above: Refill Request Start: 10-05-2023 Telephone encounter Zeny Cleav er AIR CONDITIONING SUPERVISOR.THEATRICAL AGENT Work Phone: Internal Medicine [place] Start: 09-30-2023 Refill Zeny Genaro AIR CONDITIONING SUPERVISOR.THEATRICAL AGENT Work Phone: Internal Medicine [place] Comment on above: Refill Request Start: 09-25-2023 Telephone encounter Zeny Cleav er AIR CONDITIONING SUPERVISOR.THEATRICAL AGENT Work Phone: [address] [place] [address] Comment on above: Patient Update Start: 09-24-2023 Telephone encounter Zeny Cleav er AIR CONDITIONING SUPERVISOR.THEATRICAL AGENT Work Phone: Internal Medicine [place] Comment on above: letter should be com ing to provider Start: 09-23-2023 Telephone encounter Zeny Cleav er AIR CONDITIONING SUPERVISOR.THEATRICAL AGENT Work Phone: Internal Medicine [place] Comment on above: Anticoagulation Start: 09-15-2023 ambulatory Zeny Genaro AIR CONDITIONING SUPERVISOR.THEATRICAL AGENT Work Phone: Internal Medicine [place] Start: 09-15-2023 End: 09-15-2023 Patient encounter procedure Zeny Genaro AIR CONDITIONING SUPERVISOR.THEATRICAL AGENT Work Phone: Internal Medicine [place] Comment on above: Chronic bilateral lo w back pain with bilateral sciatica (Primary Dx); Compression fracture of L1 vertebra with routine healing, subsequent encounter; Mixed hyperlipidemia; Primary hypertension; Kidney insufficiency; Impaired fasting glucose; FDC (current) use of anticoagulants; 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); Vitamin D deficiency; Encounter for therapeutic drug monitoring Acupuncture appointm ent Start: 09-15-2023 Telephone encounter Zeny Cleav er AIR CONDITIONING SUPERVISOR.THEATRICAL AGENT Work Phone: Internal Medicine [place] Comment on above: Orders Start: 09-11-2023 Telephone encounter Zeny Cleav er AIR CONDITIONING SUPERVISOR.THEATRICAL AGENT Work Phone: Internal Medicine [place] Comment on above: Anticoagulation Patient Update Start: 09-08-2023 Telephone encounter Zeyn Cleav er AIR CONDITIONING SUPERVISOR.THEATRICAL AGENT Work Phone: Family Medicine [place] Comment on above: Opened In Error Letter Start: 09-07-2023 Telephone encounter Zeny Cleav er AIR CONDITIONING SUPERVISOR.THEATRICAL AGENT Work Phone: Internal Medicine [place] Comment on above: Medication Problem Start: 09-06-2023 Refill Zeny Genaro AIR CONDITIONING SUPERVISOR.THEATRICAL AGENT Work Phone: Internal Medicine [place] Comment on above: Med Change Request Start: 09-04-2023 Telephone encounter Zeny Cleav er AIR CONDITIONING SUPERVISOR.THEATRICAL AGENT Work Phone: Internal Medicine [place] Comment on above: Anticoagulation Letter Start: 09-02-2023 Telephone encounter Zeny Cleav er AIR CONDITIONING SUPERVISOR.THEATRICAL AGENT Work Phone: Internal Medicine [place] Comment on above: Patient Question Start: 08-28-2023 Telephone encounter Zeny Cleav er AIR CONDITIONING SUPERVISOR.THEATRICAL AGENT Work Phone: Internal Medicine [place] Comment on above: Question Start: 08-27-2023 Telephone encounter Zeny Cleav er AIR CONDITIONING SUPERVISOR.THEATRICAL AGENT Work Phone: Internal Medicine [place] Comment on above: Patient Question Start: 08-27-2023 End: 08-27-2023 Patient encounter procedure Irene Moraes MD Work Phone: Integrative Medicine Comment on above: Compression fracture of L1 vertebra with routine healing, subsequent encounter; Chronic low back pain without sciatica, unspecified back pain laterality Start: 08-26-2023 Telephone encounter Zeny Cleav er AIR CONDITIONING SUPERVISOR.THEATRICAL AGENT Work Phone: Internal Medicine [place] Comment on above: Results Start: 08-25-2023 End: 08-25-2023 Subsequent hospital visit by physician Mala [facility] [place] Work Phone: Radiology Comment on above: SOB (shortness of br eath) [R06.02] Start: 08-25-2023 End: 08-25-2023 Patient encounter procedure Zeny Genaro AIR CONDITIONING SUPERVISOR.KAYLA Work Phone: Internal Medicine [place] Comment on above: Chronic low back sharon n without sciatica, unspecified back pain laterality (Primary Dx); Compression fracture of L1 vertebra with routine healing, subsequent encounter; Primary hypertension; SOB (shortness of breath); History of smoking; BPH with obstruction/lower urinary tract symptoms Start: 08-24-2023 Telephone encounter Zeny Cleav er AIR CONDITIONING SUPERVISOR.THEATRICAL AGENT Work Phone: Internal Medicine [place] Comment on above: Anticoagulation Start: 08-23-2023 ambulatory Zeny Genaro AIR CONDITIONING SUPERVISOR.THEATRICAL AGENT Work Phone: Internal Medicine [place] Comment on above: Update on my fall co ndition Start: 08-18-2023 Refill Zeny Genaro AIR CONDITIONING SUPERVISOR.THEATRICAL AGENT Work Phone: Internal Medicine [place] Comment on above: Refill Request Start: 08-14-2023 Telephone encounter Zeny Cleav er AIR CONDITIONING SUPERVISOR.THEATRICAL AGENT Work Phone: Internal Medicine [place] Comment on above: Anticoagulation Start: 08-12-2023 Refill Zeny Genaro AIR CONDITIONING SUPERVISOR.THEATRICAL AGENT Work Phone: Internal Medicine [place] Comment on above: Refill Request Start: 08-11-2023 Refill Zeny Genaro AIR CONDITIONING SUPERVISOR.THEATRICAL AGENT Work Phone: Family Medicine [place] Comment on above: Refill Request Start: 08-10-2023 End: 08-10-2023 Patient encounter procedure Micah Portillo APRN.THEATRICAL AGENT, DNP Work Phone: Urology Comment on above: Benign prostatic hyp erplasia with nocturia (Primary Dx) Start: 08-04-2023 Refill Zeny Genaro AIR CONDITIONING SUPERVISOR.THEATRICAL AGENT Work Phone: Internal Medicine [place] Comment on above: Refill Request Start: 07-30-2023 Telephone encounter Zeny Cleav er AIR CONDITIONING SUPERVISOR.THEATRICAL AGENT Work Phone: [facility] Medicine Comment on above: Anticoagulation Start: 07-29-2023 ambulatory Zeny Genaro AIR CONDITIONING SUPERVISOR.THEATRICAL AGENT Work Phone: Internal Medicine [place] Comment on above: Off and on again Cum josias Start: 07-27-2023 End: 07-27-2023 Patient encounter procedure Zeny Genaro AIR CONDITIONING SUPERVISOR.THEATRICAL AGENT Work Phone: Internal Medicine [place] Comment on above: Compression fracture of L1 vertebra with routine healing, subsequent encounter (Primary Dx); Chronic low back pain without sciatica, unspecified back pain laterality; Acute bilateral low back pain with bilateral sciatica; Urinary dysfunction; Primary hypertension Start: 07-26-2023 Refill Zeny Genaro AIR CONDITIONING SUPERVISOR.THEATRICAL AGENT Work Phone: Internal Medicine [place] Comment on above: Refill Request Start: 07-23-2023 Refill Zeny Genaro AIR CONDITIONING SUPERVISOR.THEATRICAL AGENT Work Phone: Internal Medicine [place] Comment on above: Med Change Request Start: 07-21-2023 End: 07-21-2023 Patient encounter procedure Edgar Loaiza DO Work Phone: Vascular Surgery Comment on above: 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); PAD (peripheral artery disease) ([facility]) Start: 07-20-2023 Refill Zeny Genaro AIR CONDITIONING SUPERVISOR.THEATRICAL AGENT Work Phone: Internal Medicine [place] Comment on above: Refill Request Start: 07-19-2023 ambulatory Zeny Genaro AIR CONDITIONING SUPERVISOR.THEATRICAL AGENT Work Phone: [facility] Start: 07-19-2023 Emergency department patient visit Zeny Genaro AIR CONDITIONING SUPERVISOR.THEATRICAL AGENT Work Phone: Internal Medicine [place] Comment on above: Physical therapist suad thomas emergency room back findings Start: 07-18-2023 End: 07-18-2023 Patient encounter procedure Franc Hills MD Work Phone: Internal Medicine [place] Comment on above: Compression fracture of L1 vertebra with routine healing, subsequent encounter (Primary Dx); Chronic bilateral low back pain with bilateral sciatica; BPH with obstruction/lower urinary tract symptoms Start: 07-17-2023 Refill Zeny Genaro AIR CONDITIONING SUPERVISOR.THEATRICAL AGENT Work Phone: Internal Medicine [place] Comment on above: Refill Request Start: 07-17-2023 Refill Zeny Genaro AIR CONDITIONING SUPERVISOR.THEATRICAL AGENT Work Phone: [facility] Comment on above: Refill Request Start: 07-16-2023 ambulatory Mckinley Leal MD Work Phone: [facility] Start: 07-16-2023 Emergency department patient visit Mckinley Leal MD Work Phone: Pain Management Comment on above: Back issues after vi sit to physical therapy and your emergency room Start: 07-15-2023 Telephone encounter Zeny Cleav er AIR CONDITIONING SUPERVISOR.THEATRICAL AGENT Work Phone: [facility] Comment on above: Anticoagulation Start: 07-15-2023 End: 07-15-2023 ambulatory Brian Carvajal [facility] Physical Therapy Comment on above: Chronic low back sharon n without sciatica, unspecified back pain laterality; Compression fracture of L1 vertebra with routine healing, subsequent encounter; Sciatic leg pain Start: 07-13-2023 Refill Zeny Genaro AIR CONDITIONING SUPERVISOR.THEATRICAL AGENT Work Phone: [facility] Comment on above: Refill Request Start: 07-06-2023 Refill Zeny Genaro AIR CONDITIONING SUPERVISOR.THEATRICAL AGENT Work Phone: Internal Medicine [place] Comment on above: Patient Question; Re fill Request Start: 06-30-2023 Telephone encounter Zeny Cleav er AIR CONDITIONING SUPERVISOR.THEATRICAL AGENT Work Phone: [facility] Comment on above: Anticoagulation Start: 06-29-2023 End: 06-29-2023 Patient encounter procedure Zeny Genaro AIR CONDITIONING SUPERVISOR.THEATRICAL AGENT Work Phone: Internal Medicine [place] Comment on above: Acute bilateral low back pain with bilateral sciatica (Primary Dx); Chronic low back pain without sciatica, unspecified back pain laterality; Compression fracture of L1 vertebra with routine healing, subsequent encounter Start: 06-24-2023 Telephone encounter Zeny Cleav er AIR CONDITIONING SUPERVISOR.THEATRICAL AGENT Work Phone: Internal Medicine [place] Comment on above: Patient Question; Ap pointment Start: 06-23-2023 Refill Zeny Genaro AIR CONDITIONING SUPERVISOR.THEATRICAL AGENT Work Phone: [facility] Medicine [place] Comment on above: Patient Update; Refi ll Request Start: 06-19-2023 Telephone encounter Zeny Cleav er AIR CONDITIONING SUPERVISOR.THEATRICAL AGENT Work Phone: Internal Medicine [place] Comment on above: Anticoagulation Medication Question Start: 06-15-2023 End: 06-15-2023 Patient encounter procedure Sunny Mercedes MD Work Phone: Cardiology Comment on above: Screening for ischem ic heart disease (Primary Dx); Primary hypertension; Mixed hyperlipidemia; History of left-sided carotid endarterectomy; Recurrent pulmonary embolism ([facility]); PAD (peripheral artery disease) ([facility]); Bilateral carotid artery stenosis Refill Request (ques tion ) Start: 06-15-2023 Refill Zeny Genaro AIR CONDITIONING SUPERVISOR.[facility] Work Phone: Internal Medicine [place] Comment on above: Refill Request Start: 06-12-2023 Telephone encounter Zeny Cleav er AIR CONDITIONING SUPERVISOR.[facility] Work Phone: Internal Medicine [place] Comment on above: back pain update Anticoagulation Start: 06-09-2023 ambulatory Zeny Genaro AIR CONDITIONING SUPERVISOR.THEATRICAL AGENT Work Phone: Internal Medicine [place] Comment on above: Back Brace Start: 06-08-2023 Refill Zeny Genaro AIR CONDITIONING SUPERVISOR.THEATRICAL AGENT Work Phone: Internal Medicine [place] Comment on above: Refill Request Start: 06-05-2023 Telephone encounter Ezny Cleav er AIR CONDITIONING SUPERVISOR.THEATRICAL AGENT Work Phone: Internal Medicine [place] Comment on above: Anticoagulation Start: 06-04-2023 ambulatory Zeny Genaro AIR CONDITIONING SUPERVISOR.THEATRICAL AGENT Work Phone: Internal Medicine [place] Comment on above: Disability parking p ass Start: 06-03-2023 End: 06-03-2023 Patient encounter procedure Mckinley Leal MD Work Phone: Pain Management Comment on above: Compression fracture of L1 vertebra, initial encounter ([facility]) (Primary Dx) Start: 06-03-2023 Telephone encounter Mckinley mullen MD Work Phone: Pain Management Comment on above: Orders (Back brace) Patient Update Start: 06-02-2023 ambulatory Zeny Genaro AIR CONDITIONING SUPERVISOR.THEATRICAL AGENT Work Phone: Internal Medicine [place] Comment on above: Dr. Leal Start: 05-29-2023 End: 05-29-2023 Refill Zeny Genaro AIR CONDITIONING SUPERVISOR.THEATRICAL AGENT Work Phone: Internal Medicine [place] Comment on above: Refill Request Lumbar pain [M54.50] Results Start: 05-26-2023 ambulatory Mckinley Leal MD Work Phone: Pain Management Comment on above: Back injury Start: 05-26-2023 Telephone encounter Zeny Cleav er AIR CONDITIONING SUPERVISOR.THEATRICAL AGENT Work Phone: Family Medicine [place] Comment on above: Anticoagulation Start: 05-26-2023 End: 05-26-2023 Patient encounter procedure Edgar David Loaiza DO Work Phone: Vascular Surgery Comment on above: 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); PAD (peripheral artery disease) (HCC) Start: 05-23-2023 ambulatory Rosalia torre LPN [facility] Comment on above: Question MRI WO Contrast Start: 05-21-2023 Refill Zeny Genaro AIR CONDITIONING SUPERVISOR.THEATRICAL AGENT Work Phone: Family Medicine [place] Comment on above: Refill Request Start: 05-19-2023 Telephone encounter Zeny Cleav er AIR CONDITIONING SUPERVISOR.THEATRICAL AGENT Work Phone: Internal Medicine [place] Comment on above: Patient Question Anticoagulation Start: 05-18-2023 End: 05-18-2023 Patient encounter procedure Zeny Genaro AIR CONDITIONING SUPERVISOR.THEATRICAL AGENT Work Phone: Internal Medicine [place] Comment on above: Acute bilateral low back pain without sciatica (Primary Dx); Lumbar pain; Fall, subsequent encounter; 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) Start: 05-15-2023 Telephone encounter Zeny Cleav er AIR CONDITIONING SUPERVISOR.THEATRICAL AGENT Work Phone: [facility] Family Medicine Comment on above: medication issue Start: 05-14-2023 ambulatory Zeny Genaro AIR CONDITIONING SUPERVISOR.THEATRICAL AGENT Work Phone: Internal Medicine [place] Comment on above: Fall Start: 05-14-2023 End: 05-14-2023 Emergency department patient visit Lisandro Mora Facility:[facility] Start: 05-13-2023 Refill Zeny Genaro AIR CONDITIONING SUPERVISOR.THEATRICAL AGENT Work Phone: Internal Medicine [place] Comment on above: Refill Request Start: 05-07-2023 ambulatory Zeny Genaro AIR CONDITIONING SUPERVISOR.THEATRICAL AGENT Work Phone: Internal Medicine [place] Comment on above: Lorazapam renewal. Start: 05-06-2023 Refill Zeny Genaro AIR CONDITIONING SUPERVISOR.THEATRICAL AGENT Work Phone: Internal Medicine [place] Comment on above: Refill Request Start: 03-24-2023 ambulatory Zeny Genaro AIR CONDITIONING SUPERVISOR.THEATRICAL AGENT Work Phone: [facility] Medicine [place] Comment on above: Low BP Start: 03-20-2023 Telephone encounter Zeny Cleav er AIR CONDITIONING SUPERVISOR.THEATRICAL AGENT Work Phone: Internal Medicine [place] Comment on above: Patient Question Start: 03-18-2023 Telephone encounter Mani zurita MD Work Phone: Family [facility] Comment on above: Anticoagulation Start: 03-10-2023 Telephone encounter Zeny Cleav er AIR CONDITIONING SUPERVISOR.THEATRICAL AGENT Work Phone: Family [facility] Comment on above: Medication Problem Start: 03-04-2023 Telephone encounter Zeny Cleav er AIR CONDITIONING SUPERVISOR.THEATRICAL AGENT Work Phone: [facility] Medicine [place] Comment on above: Anticoagulation Start: 03-02-2023 Telephone encounter Zeny Cleav er AIR CONDITIONING SUPERVISOR.THEATRICAL AGENT Work Phone: [facility] Medicine [place] Comment on above: Orders Start: 02-27-2023 Telephone encounter Zeny Cleav er AIR CONDITIONING SUPERVISOR.THEATRICAL AGENT Work Phone: [facility] [place] Comment on above: Results Start: 02-24-2023 End: 02-09-2024 Telephone encounter Micah Rosenberg MD Work Phone: General Surgery Comment on above: 04/20/2022 EGD [facility] Start: 02-23-2023 Telephone encounter Zeny Cleav er AIR CONDITIONING SUPERVISOR.THEATRICAL AGENT Work Phone: Internal Medicine [place] Comment on above: Patient Question Start: 02-18-2023 Telephone encounter Mani zurita MD Work Phone: [facility] Medicine [place] Comment on above: Anticoagulation Start: 02-10-2023 Telephone encounter Zeny Cleav er AIR CONDITIONING SUPERVISOR.THEATRICAL AGENT Work Phone: Internal Medicine [place] Comment on above: Patient Question Start: 02-08-2023 Refill Zeny Elizabethr AIR CONDITIONING SUPERVISOR.THEATRICAL AGENT Work Phone: [facility] [place] Comment on above: Refill Request Don't refill my pres cription for Pantoprazole Start: 02-04-2023 Telephone encounter Zeny Cleav er AIR CONDITIONING SUPERVISOR.THEATRICAL AGENT Work Phone: [facility] Comment on above: Anticoagulation Start: 01-29-2023 Refill Sara Older AIR CONDITIONING SUPERVISOR .THEATRICAL AGENT Work Phone: Internal Medicine [place] Comment on above: Refill Request Start: 01-23-2023 End: 01-23-2023 Patient encounter procedure Zeny Elizabethr AIR CONDITIONING SUPERVISOR.THEATRICAL AGENT Work Phone: Internal Medicine [place] Comment on above: Mixed hyperlipidemia (Primary Dx); 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); FDC (current) use of anticoagulants; Acute gastritis without hemorrhage, unspecified gastritis type; History of left-sided carotid endarterectomy; Spinal stenosis of lumbar region, unspecified whether neurogenic claudication present; Primary hypertension Start: 01-22-2023 Telephone encounter Franc khan MD Work Phone: Internal Medicine [place] Comment on above: Anticoagulation Start: 01-19-2023 End: 01-19-2023 Patient encounter procedure Mckinley Leal MD Work Phone: Pain Management Comment on above: Spinal stenosis of l umbar region, unspecified whether neurogenic claudication present (Primary Dx); Lumbar spondylosis Start: 01-16-2023 Refill Franc grissom MD Work Phone: [facility] Medicine [place] Comment on above: Medication Question Start: 01-14-2023 ambulatory Zeny Genaro AIR CONDITIONING SUPERVISOR.THEATRICAL AGENT Work Phone: Internal Medicine [place] Comment on above: My Chart Start: 01-14-2023 Telephone encounter Zeny Cleav er AIR CONDITIONING SUPERVISOR.THEATRICAL AGENT Work Phone: Internal Medicine [place] Comment on above: Anticoagulation Start: 01-12-2023 ambulatory Edgar Worthy Work Phone: Vascular Surgery Comment on above: Rouvastatine dosage Start: 01-09-2023 Telephone encounter Franc khan MD Work Phone: [facility] Medicine [place] Comment on above: Anticoagulation Start: 01-07-2023 Telephone encounter Franc khan MD Work Phone: Internal Medicine [place] Comment on above: Anticoagulation Start: 12-30-2022 Telephone encounter Zeny grove AIR CONDITIONING SUPERVISOR.THEATRICAL AGENT Work Phone: [facility] Medicine [place] Comment on above: Future Appointment Start: 12-29-2022 End: 12-29-2022 Patient encounter procedure Zeny Lam AIR CONDITIONING SUPERVISOR.THEATRICAL AGENT Work Phone: Internal Medicine [place] Comment on above: Gastroesophageal ref lux disease without esophagitis (Primary Dx); Acute gastritis without hemorrhage, unspecified gastritis type Start: 12-29-2022 ambulatory Tammie Rg RN [facility] Comment on above: Information Start: 12-25-2022 Telephone encounter Franc khan MD Work Phone: Internal Medicine [place] Comment on above: Patient Question Start: 12-17-2022 ambulatory Mckinley Leal MD Work Phone: Pain Management Comment on above: New Covid Vaccine Start: 12-17-2022 Telephone encounter Franc khan MD Work Phone: Internal Medicine [place] Comment on above: Patient Question Start: 12-14-2022 ambulatory Franc grissom MD Work Phone: [facility] [place] Comment on above: Cumadin dosage after Ablation Start: 12-10-2022 End: 12-10-2022 Patient encounter procedure Mckinley Leal MD Work Phone: Pain Management Comment on above: Lumbar spondylosis ( Primary Dx); Chronic low back pain without sciatica, unspecified back pain laterality; Hereditary and idiopathic peripheral neuropathy; Spinal stenosis of lumbar region, unspecified whether neurogenic claudication present Start: 12-09-2022 End: 12-09-2022 Patient encounter procedure Kvng Magaña MD Work Phone: Ophthalmology Comment on above: Macular hole of left eye (Primary Dx); Posterior vitreous detachment of right eye Start: 12-08-2022 Refill Sarashannon AhujaTHEATRICAL AGENT Work Phone: Internal Medicine [place] Comment on above: Refill Request Start: 12-04-2022 Telephone encounter Franc khan MD Work Phone: Internal Medicine [place] Comment on above: Patient Question Start: 12-03-2022 Telephone encounter Mckinley mullen MD Work Phone: Pain Management Comment on above: Patient Update (Anti coagulation hold for 11/26/22) Anticoagulation Start: 12-02-2022 Telephone encounter Franc khan MD Work Phone: Internal Medicine [place] Comment on above: Patient Update Start: 12-01-2022 Telephone encounter Franc khan MD Work Phone: Internal Medicine [place] Start: 11-24-2022 End: 11-24-2022 Patient encounter procedure Franc Hills MD Work Phone: Internal Medicine [place] Comment on above: Chronic low back sharon n without sciatica, unspecified back pain laterality (Primary Dx); Primary hypertension; Kidney insufficiency; Impaired fasting glucose Start: 11-18-2022 ambulatory Mckinley Leal MD Work Phone: Pain Management Comment on above: Past procedure and C PTs PATIENT PROCEDURE IN STRUCTIONS for 12/23/22 Start: 11-18-2022 E-mail encounter fro m caregiver Mckinley Leal MD Work Phone: [facility] Start: 11-12-2022 Telephone encounter Mckinley mullen MD Work Phone: Pain Management Comment on above: Appointment Start: 11-11-2022 Telephone encounter Franc khan MD Work Phone: Internal Medicine [place] Comment on above: Patient Update Orders Anticoagulation Start: 11-10-2022 End: 11-10-2022 Patient encounter procedure Salas Johns MD Work Phone: [facility] [place] Comment on above: Chronic low back sharon n without sciatica, unspecified back pain laterality; Spinal stenosis of lumbar region, unspecified whether neurogenic claudication present Start: 11-07-2022 Telephone encounter Franc khan MD Work Phone: Internal Medicine [place] Comment on above: Medication Update Re quest Start: 11-04-2022 Telephone encounter Franc khan MD Work Phone: Internal Medicine [place] Comment on above: standing lab order f or INR Refill Request Start: 10-28-2022 Telephone encounter Franc khan MD Work Phone: [facility] Medicine [place] Comment on above: Anticoagulation Start: 10-14-2022 Telephone encounter Anticoag [facility] Work Phone: [facility] [place] Comment on above: Opened In Error Start: 10-13-2022 Refill Franc grissom MD Work Phone: Internal Medicine [place] Comment on above: Refill Request; Refi ll Request Start: 09-30-2022 Telephone encounter Franc khan MD Work Phone: Internal Medicine [place] Comment on above: Anticoagulation Start: 09-26-2022 Chart abstracting Unk Pcp (Hist) Elo fontaineogy Start: 09-24-2022 Telephone encounter Franc khan MD Work Phone: Internal Medicine [place] Comment on above: Results Start: 09-23-2022 ambulatory Franc grissom MD Work Phone: Internal Medicine [place] Comment on above: Dr Ansari Start: 09-17-2022 Telephone encounter Franc khan MD Work Phone: [facility] [place] Comment on above: Anticoagulation Start: 09-11-2022 Telephone encounter Franc khan MD Work Phone: Internal Medicine [place] Comment on above: Anticoagulation Start: 09-09-2022 Refill Franc grissom MD Work Phone: Internal Medicine [place] Comment on above: Refill Request Start: 09-03-2022 Telephone encounter Franc khan MD Work Phone: Internal Medicine [place] Comment on above: Anticoagulation Start: 08-11-2022 End: [...] patient Mj Dos Santos MD Work Phone: [facility] Start: 08-06-2022 Telephone encounter Franc khan MD Work Phone: Internal Medicine [place] Comment on above: Anticoagulation Start: 07-30-2022 Telephone encounter Franc kahn MD Work Phone: [facility] Medicine [place] Comment on above: Anticoagulation Start: 07-28-2022 Telephone encounter Franc khan MD Work Phone: [facility] [place] Comment on above: Patient Question Start: 07-16-2022 Telephone encounter Franc khan MD Work Phone: Internal Medicine [place] Comment on above: Anticoagulation Start: 07-09-2022 Telephone encounter Franc khan MD Work Phone: Family [facility] [place] Comment on above: Anticoagulation Start: 07-02-2022 Telephone encounter Franc khan MD Work Phone: [facility] [place] Comment on above: Anticoagulation Start: 06-18-2022 Telephone encounter Franc khan MD Work Phone: [facility] [place] Comment on above: Anticoagulation Start: 06-17-2022 Refill Franc grissom MD Work Phone: [facility] [place] Comment on above: Refill Request Start: 06-06-2022 Telephone encounter Franc khan MD Work Phone: Internal Medicine [place] Comment on above: Patient Update Start: 06-03-2022 Telephone encounter Franc khan MD Work Phone: [facility] [place] Comment on above: Anticoagulation Start: 06-02-2022 End: 06-02-2022 Patient encounter procedure Franc Hills MD Work Phone: Internal Medicine [place] Start: 06-02-2022 End: 06-02-2022 Refill Franc Hills MD Work Phone: Internal Medicine [place] Comment on above: Refill Request Medicare annual [facility] visit, subsequent (Primary Dx); PAD (peripheral artery disease) (HCC); Chronic low back pain without sciatica, unspecified back pain laterality; Primary hypertension; Mixed hyperlipidemia; 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); Impaired fasting glucose Start: 05-31-2022 Refill Sara Baxter APRN, .CNP Work Phone: Internal Medicine [place] Comment on above: Refill Request Start: 05-26-2022 Telephone encounter Mj waddell MD Work Phone: Vascular Medicine Comment on above: Phone call to imeldabull tolentino (Re: Scheduling ECHO) Start: 05-22-2022 Telephone encounter Franc khan MD Work Phone: Internal Medicine [place] Comment on above: Anticoagulation Start: 05-21-2022 Telephone encounter Franc khan MD Work Phone: Internal Medicine [place] Comment on above: Lab Orders Orders Start: [...] Franc khan MD Work Phone: Internal Medicine [place] Comment on above: Coumadin instruction request Start: 04-16-2022 Telephone encounter Franc khan MD Work Phone: [facility] [place] Comment on above: Anticoagulation Start: 04-11-2022 Telephone encounter Franc khan MD Work Phone: Internal Medicine [place] Comment on above: Anticoagulation Start: 04-11-2022 End: 04-11-2022 [facility] [place] Comment on above: 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 Start: 04-06-2022 ambulatory Franc grissom MD Work Phone: Internal Medicine [place] Comment on above: My Potassium prescri ption Start: 04-04-2022 Refill Franc grissom MD Work Phone: Internal Medicine [place] Comment on above: Refill Request Start: 04-01-2022 Telephone encounter Franc khan MD Work Phone: Internal Medicine [place] Comment on above: Anticoagulation (/) Start: 03-24-2022 End: 03-24-2022 Admission to same day surgery center [facility] Start: 03-24-2022 End: 03-24-2022 ambulatory [facility] Work Phone: Start: 03-20-2022 Telephone encounter Franc khan MD Work Phone: Internal Medicine [place] Comment on above: Patient Update Start: 03-18-2022 Telephone encounter Franc khan MD Work Phone: Family Medicine [place] Comment on above: Back Pain Start: 03-17-2022 MC Patient Msg [facility] Provider Internal Medicine [place] Comment on above: Refill request Start: 03-13-2022 Telephone encounter Franc khan MD Work Phone: Family Medicine [place] Comment on above: Results Start: 03-11-2022 Refill Franc grissom MD Work Phone: Internal Medicine [place] Comment on above: Refill Request; Imelda ent Update Start: 03-06-2022 End: 03-06-2022 [facility] Work [facility] [place] Comment on above: 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); 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) Start: 02-18-2022 Telephone encounter Franc khan MD Work Phone: Coumadin [facility] [place] Comment on above: Orders (protime) Start: 02-18-2022 End: 02-18-2022 Anticoagulant drug monitoring [facility] Work Phone: Coumadin [facility] [place] Comment on above: FDC (current) use of anticoagulants (Primary Dx); 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) Start: 02-11-2022 Telephone encounter Franc khan MD Work Phone: Internal Medicine [place] Comment on above: Patient Update Start: 02-03-2022 Telephone encounter Mani zurita MD Work Phone: Internal Medicine [place] Comment on above: Medication Problem Start: 02-03-2022 End: 02-03-2022 Patient encounter procedure Bonnie Sharif APRN.SENIOR BUSINESS DEVELOPMENT ANALYST Work Phone: Internal Medicine [place] Comment on above: Primary hypertension (Primary Dx); 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; 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); Chronic low back pain without sciatica, unspecified back pain laterality Start: 02-01-2022 ambulatory Franc grissom MD Work Phone: [facility] Medicine [place] Comment on above: Question regarding P ROTHROMBIN TIME/PT(INR INCL.) Start: 01-31-2022 Telephone encounter Franc khan MD Work Phone: Internal Medicine [place] Comment on above: Anticoagulation Start: 01-24-2022 Telephone encounter Franc khan MD Work Phone: [facility] [place] Comment on above: Anticoagulation Start: 01-22-2022 Telephone encounter Franc khan MD Work Phone: Internal Medicine [place] Comment on above: FYI-No Action Needed Start: 01-15-2022 Telephone encounter Franc khan MD Work Phone: Internal Medicine [place] Comment on above: Patient Question Start: 01-13-2022 Telephone encounter Franc khan MD Work Phone: Internal Medicine [place] Comment on above: Patient Question; Pa tient Update Start: 01-08-2022 Telephone encounter Franc khan MD Work Phone: Family Medicine [place] Comment on above: Anticoagulation (P t requesting INR results/instructions to be left on his VM) Start: 01-06-2022 Telephone encounter Franc khan MD Work Phone: Internal Medicine [place] Comment on above: Patient Question Start: 01-03-2022 Telephone encounter Franc khan MD Work Phone: Internal Medicine [place] Comment on above: Patient Update Start: 12-31-2021 Telephone encounter Franc khan MD Work Phone: [facility] [place] Comment on above: Faxed Form Patient Request Start: 12-25-2021 Telephone encounter Franc khan MD Work Phone: [facility] [place] Comment on above: Anticoagulation Start: 12-19-2021 End: 12-19-2021 ambulatory Iglesia Ansari MD Work Phone: Vascular Surg Dept Comment on above: 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) Start: 12-19-2021 End: 12-19-2021 Telemedicine consultation with patient Iglesia Ansari MD Work Phone: [facility] [facility] Start: 12-18-2021 Telephone encounter Iglesia Mcdonald se, MD Work Phone: Vascular Surg Dept Comment on above: Results Start: 12-17-2021 Refill Sara AhujaTHEATRICAL AGENT Work Phone: Internal Medicine [facility] Comment on above: Refill Request Start: 12-12-2021 Telephone encounter Kvng Magaña MD Work Phone: Ophthalmology Comment on above: Patient Question Start: 12-11-2021 Telephone encounter Franc khan MD Work Phone: Internal Medicine [facility] Comment on above: Patient Request Anticoagulation Start: 12-10-2021 End: 12-10-2021 Patient encounter procedure Kvng Magaña MD Work Phone: Ophthalmology Comment on above: Macular hole of left eye (Primary Dx) Start: 11-27-2021 Refill Franc grissom MD Work Phone: Internal Medicine [facility] Comment on above: Refill Request Anticoagulation Start: 11-24-2021 Refill Franc grissom MD Work Phone: Internal Medicine [facility] Comment on above: Refill Request Start: 11-14-2021 Telephone encounter Franc khan MD Work Phone: Internal Medicine [place] Comment on above: Anticoagulation Start: 11-13-2021 End: 11-13-2021 Office outpatient visit 25 minutes Franc Hills MD Work Phone: Internal Medicine [facility] Comment on above: Primary hypertension (Primary Dx); 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; Mixed hyperlipidemia; Screening for prostate cancer; Chronic low back pain without sciatica, unspecified back pain laterality Start: 11-12-2021 End: 11-12-2021 Patient encounter procedure Micah Rosenberg MD Work Phone: General Surgery Comment on above: Personal history of colonic polyps (Primary Dx) Start: 11-01-2021 Telephone encounter Franc khan MD Work Phone: Internal Medicine [facility] Comment on above: Anticoagulation Start: 10-25-2021 Telephone encounter Iglesia Mcdonald se, MD Work Phone: Vascular Surg Dept Comment on above: Patient Question Start: 10-16-2021 End: 10-16-2021 Patient encounter procedure Franc Hills MD Work Phone: Internal Medicine [place] Comment on above: Fall, subsequent enc ounter (Primary Dx); Chronic low back pain without sciatica, unspecified back pain laterality; Closed head injury, subsequent encounter; Neck pain on right side; 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) Start: 10-16-2021 Telephone encounter Franc khan MD Work Phone: Internal Medicine [facility] Comment on above: Anticoagulation Start: 10-03-2021 Telephone encounter Franc khan MD Work Phone: Internal Medicine [place] Comment on above: Anticoagulation Start: 10-01-2021 Refill Sara Baxter AIR CONDITIONING SUPERVISOR .THEATRICAL AGENT Work Phone: Internal Medicine [facility] Comment on above: Refill Request Start: 09-28-2021 ambulatory Franc grissom MD Work Phone: [facility] [place] Start: 09-28-2021 End: 09-28-2021 [facility] Start: 09-23-2021 Telephone encounter Franc khan MD Work Phone: Internal Medicine Ernest Comment on above: Insurance Authorizat ion Start: 09-23-2021 End: 09-23-2021 Patient encounter procedure Teri Gruber AIR CONDITIONING SUPERVISOR.THEATRICAL AGENT Work Phone: Family Medicine Ernest Comment on above: Pain in gums (Primar y Dx); Periodontal disease; Chronic low back pain without sciatica, unspecified back pain laterality Start: 09-20-2021 Refill Franc grissom MD Work Phone: Internal Medicine [facility] Comment on above: Refill Request Start: 09-18-2021 Telephone encounter Franc khan MD Work Phone: Internal Medicine [place] Comment on above: Anticoagulation Start: 09-04-2021 Telephone encounter Franc khan MD Work Phone: Family Medicine Ernest Comment on above: Medication Question Anticoagulation Start: 08-23-2021 Telephone encounter Franc khan MD Work Phone: Internal Medicine [facility] Comment on above: Patient Update Start: 08-22-2021 End: 08-22-2021 Patient encounter procedure Franc Hills MD Work Phone: Internal Medicine [facility] Comment on above: Eustachian tube dysf unction, right (Primary Dx); Primary hypertension; 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) Start: 08-22-2021 Telephone encounter Franc khan MD Work Phone: Internal Medicine [place] Comment on above: Anticoagulation Start: 08-20-2021 Telephone encounter Franc khan MD Work Phone: Family Medicine Ernest Comment on above: Results, Lab (Home C ovid Test) Start: 08-16-2021 End: 08-16-2021 Patient encounter procedure Mj Dos Santos MD Work Phone: Cardiology Comment on above: 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) (Primary Dx); History of left-sided carotid endarterectomy; Mixed hyperlipidemia; Primary hypertension; PAD (peripheral artery disease) (HCC) Start: 08-14-2021 Telephone encounter Franc khan MD Work Phone: Internal Medicine [facility] Comment on above: Patient Question Start: 08-07-2021 Telephone encounter Franc khan MD Work Phone: Internal Medicine [place] Comment on above: Anticoagulation Refill Request Start: 07-24-2021 Telephone encounter Franc khan MD Work Phone: Internal Medicine [place] Comment on above: Anticoagulation Start: 07-11-2021 Telephone encounter Sara Baxter APRN.CNP Work Phone: Family Medicine Ernest Comment on above: Ear Problem Start: 07-10-2021 Telephone encounter Franc khan MD Work Phone: Internal Medicine Ernest Comment on above: Anticoagulation Start: 07-03-2021 End: 07-03-2021 Patient encounter procedure Sara Baxter APRN.THEATRICAL AGENT Work Phone: Internal Medicine Ernest Comment on above: Suppurative otitis m edia of right ear, unspecified chronicity (Primary Dx) Start: 06-27-2021 Telephone encounter Franc khan MD Work Phone: Internal Medicine [place] Comment on above: Anticoagulation Start: 01-13-2020 End: 01-13-2020 Subsequent hospital visit by physician Xr [facility] [place] Work Phone: Radiology Comment on above: Wrist injuries, righ t, initial encounter [S69.91XA] Procedures Date Procedure Procedure Detail Performing Clinician Start: 11-20-[address] Danielle Han DO Work Phone: Start: 08-11-2024 Computerized ophthalmic imaging retina Kvng Magaña MD Work Phone: Start: 08-04-2024 Nitric oxide gas determination Zeny Lam APRN.THEATRICAL AGENT Work Phone: Start: 08-04-2024 Brncdilat rspse spmtry pre&post-brncdilat admn Zeny Lam APRN.CNP Work Phone: Start: 07-18-2024 Myocardial spect multiple studies Teri Gruber APRN.THEATRICAL AGENT Work Phone: Start: 03-10-2024 Prothrombin time [facility] Provider Start: 02-29-2024 Ct head/brain w/o contrast material Zeny Lam APRN.CNP Work Phone: Start: 01-06-2024 Adult depression screening assessment Zeny Lam APRN.THEATRICAL AGENT Work Phone: Start: 12-28-2023 Prothrombin time Zeny Lam APRN.CNP Work Phone: Start: 11-16-2023 Urnls dip stick/tablet rgnt auto w/o microscopy Micah Portillo APRN.THEATRICAL AGENT, DNP Work Phone: Start: 11-10-2023 Prothrombin time [facility] Provider Start: 10-05-2023 Prothrombin time [facility] Provider Start: 09-04-2023 Prothrombin time [facility] Provider Start: 08-25-2023 Radiologic exam chest 2 views Zeny Lam APRN.THEATRICAL AGENT Work Phone: Start: 08-24-2023 Prothrombin time [facility] Provider Start: 07-30-2023 Prothrombin time [facility] Provider Start: 07-15-2023 Prothrombin time [facility] Provider Start: 06-30-2023 Prothrombin time [facility] Provider Start: 06-19-2023 PROTHROMBIN TIME/PT [facility] Provider Start: 06-05-2023 PROTHROMBIN TIME/PT [facility] Provider Start: 05-29-2023 Mri spinal canal lumbar w/o contrast material Zeny Lam APRN.THEATRICAL AGENT Work Phone: Start: 05-26-2023 PROTHROMBIN TIME/PT [facility] Provider Start: 03-18-2023 PROTHROMBIN TIME/PT Franc Hills MD Work Phone: Start: 02-04-2023 PROTHROMBIN TIME/PT [facility] Provider Start: 01-14-2023 PROTHROMBIN TIME/PT [facility] Provider Start: 01-07-2023 PROTHROMBIN TIME/PT [facility] Provider Start: 12-09-2022 Computerized ophthalmic imaging retina Kvng Magaña MD Work Phone: Start: 12-03-2022 PROTHROMBIN TIME/PT [facility] Provider Start: 11-11-2022 PROTHROMBIN TIME/PT [facility] Provider Start: 10-28-2022 PROTHROMBIN TIME/PT [facility] Provider Start: 09-17-2022 PROTHROMBIN TIME/PT [facility] Provider Start: 07-30-2022 PROTHROMBIN [...] Start: 12-10-2021 Computerized ophthalmic imaging retina Kvng Magaña MD Work Phone: Start: 11-13-2021 Adult depression screening assessment Franc Hills MD Work Phone: Start: 09-28-2021 CT of head without contrast Start: 09-04-2021 PROTHROMBIN TIME/PT Franc Hills MD Work Phone: Start: 08-07-2021 PROTHROMBIN TIME/PT [facility] Provider Start: 07-10-2021 PROTHROMBIN TIME/PT [facility] Provider Start: 07-09-2020 Adult depression screening assessment Franc Hills MD Work Phone: Start: 01-13-2020 Radex wrist complete minimum 3 views Kvng Freire APRN.THEATRICAL AGENT Work Phone: Start: 06-10-2019 History of carotid endarterectomy History of left-sided carotid endarterectomy Franc Hills MD Work Phone: History of carotid endarterectomy History of left-sided carotid endarterectomy Mj Dos Santos MD Work Phone: History of carotid endarterectomy History of left-sided carotid endarterectomy Mj Dos Santos MD Work Phone: History of carotid endarterectomy History of left-sided carotid endarterectomy Zeny Lam APRN.THEATRICAL AGENT Work Phone: History of carotid endarterectomy History of left-sided carotid endarterectomy Sunny Mercedes MD Work Phone: History of carotid endarterectomy History of left-sided carotid endarterectomy Sunny Mercedes MD Work Phone: Plan of Treatment Date Care Activity Detail Author Start: 01-10-2031 Urine microalbumin profile [facility] Start: 11-10-2027 Diabetes Screening Diabetes Screening [facility] Start: 10-22-2027 Urine microalbumin profile DTAP,TDAP,TD (2 - Td or Tdap) [facility] Start: 08-11-2027 Diabetes Screening Diabetes Screening [facility] Start: 02-08-2027 Diabetes Screening Diabetes Screening [facility] Start: 12-13-2026 Diabetes Screening Diabetes Screening [facility] Start: 09-07-2026 Diabetes Screening Diabetes Screening [facility] Start: 07-14-2026 Diabetes Screening Diabetes Screening [facility] Start: 06-04-2026 Diabetes Screening Diabetes Screening [facility] Start: 02-25-2026 Diabetes Screening Diabetes Screening [facility] Start: 01-14-2026 Diabetes Screening Diabetes Screening [facility] Start: 08-18-2025 DIABETES SCREEN DIABETES SCREEN [facility] Start: 08-18-2025 Diabetes Screening Diabetes Screening [facility] Start: 08-15-2025 Annual PCP Team Chronic Disease Visit Annual PCP Team Chronic Disease Visit [facility] Start: 08-15-2025 BP Controlled (<130/80) BP Controlled (<130/80) [facility] Start: 07-30-2025 DIABETES SCREEN DIABETES SCREEN [facility] Start: 07-25-2025 Annual PCP Team Chronic Disease Visit Annual PCP Team Chronic Disease Visit [facility] Start: 07-25-2025 BP Controlled (<130/80) BP Controlled (<130/80) [facility] Start: 07-25-2025 End: 07-25-2025 Patient encounter procedure 07/25/2025 10:45 AM EDT Office Visit [facility] Ophthalmology [address] [facility] [address] [address] Kvng Magaña MD [address] [facility] [address] [place] [address] [facility], [facility] [address] [facility] [address] [address] Return in one year Ophthalmology Comment on above: Return in one year Start: 06-12-2025 End: 06-12-2025 Patient encounter procedure 06/12/2025 1:20 PM EDT Office Visit Cardiology [address] [place] [address] Sunny Mercedes MD [address] [id number] 9 month follow up Cardiology Comment on above: 9 month follow up Start: 06-08-2025 Annual PCP Team Chronic Disease Visit Annual PCP Team Chronic Disease Visit [facility] Start: 06-08-2025 BP Controlled (<130/80) BP Controlled (<130/80) [facility] Start: 05-26-2025 DIABETES SCREEN DIABETES SCREEN [facility] Start: 05-24-2025 BP Controlled (<130/80) BP Controlled (<130/80) [facility] Start: 05-17-2025 Annual PCP Team Chronic Disease Visit Annual PCP Team Chronic Disease Visit [facility] Start: 05-17-2025 BP Controlled (<130/80) BP Controlled (<130/80) [facility] Start: 02-14-2025 Annual PCP Team Chronic Disease Visit Annual PCP Team Chronic Disease Visit [facility] Start: 01-19-2025 Annual PCP Team Chronic Disease Visit Annual PCP Team Chronic Disease Visit [facility] Start: 01-17-2025 End: 01-17-2025 Patient encounter procedure 01/17/2025 11:40 AM EDT Office Visit Family Medicine [place] [address] [facility] [place] [address] Teri Gruber APRN.THEATRICAL AGENT [address] [place] [address] 2 month follow-up, Patient wanting to establish with Adolfo, wants to talk to LICENSED MENTAL HEALTH PROFESSIONAL first Family Medicine [place] Comment on above: 2 month follow-up, Patient wanting to es tablish with Adolfo, wants to talk to LICENSED MENTAL HEALTH PROFESSIONAL first Start: 01-05-2025 Annual PCP Team Chronic Disease Visit Annual PCP Team Chronic Disease Visit [facility] Start: 01-05-2025 Anxiety Screening Anxiety Screening [facility] Start: 01-05-2025 BP Controlled (<130/80) BP Controlled (<130/80) [facility] Start: 01-05-2025 Depression Screening Depression Screening [facility] Start: 12-23-2024 End: 12-23-2024 Patient encounter procedure 12/23/2024 2:15 PM EDT Appointment Radiology [address] [place] [id number] Screening for osteoporosis [Z13.820 Radiology Comment on above: Screening for osteoporosis [Z13.820 Start: 12-16-2024 End: 12-16-2024 Patient encounter procedure 12/16/2024 1:30 PM EDT Office Visit Pulmonary Medicine [address] [place] [address] Shruti Carrington APRN.THEATRICAL AGENT [address] [place] [address] 8 wk f/u Pulmonary Medicine Comment on above: 8 wk f/u Start: 12-16-2024 End: 12-16-2024 ambulatory 12/16/2024 1:15 PM EDT Procedure PULM LAB [facility] [address] [place] [address] Wstr, Pulm Lab [facility] [address] [place] [address] Mild persistent asthma without complication (HCC) [J45.30] PULM LAB [facility] WS Comment on above: Mild persistent asthma without complicat ion (HCC) [J45.30] Start: 12-13-2024 Annual PCP Team Chronic Disease Visit Annual PCP Team Chronic Disease Visit [facility] Start: 12-06-2024 End: 12-06-2024 Patient encounter procedure Vasculary Guzmán rgery Comment on above: (peripheral artery disease) (HCC) [I73.9 ] Stenosis of left car otid artery [I65.22] [address] testing Start: 12-05-2024 Influenza vaccination Influenza Vaccine (#1) [facility] Start: 11-28-2024 End: 11-28-2024 Patient encounter procedure 11/28/2024 1:30 PM EDT Office Visit Urology [address] [place] [address] Micah Portillo APRN.THEATRICAL AGENT, DNP [address] [place] [address] 1 YR F/U BPH. Urology Comment on above: 1 YR F/U BPH. Start: 11-23-2024 End: 11-23-2024 ambulatory 11/23/2024 11:15 AM EDT Results Only Alena Fernandezwn [facility] Laboratory [address] [place] [address] PT/INR [facility] [place] [facility] Comment on above: PT/INR Start: 11-20-2024 Esophagogastroduodenoscopy EGD (Not Applicable) [facility] Start: 11-20-2024 Admission procedure [facility] Start: 11-15-2024 BP Controlled (<130/80) BP Controlled (<130/80) [facility] Start: 11-15-2024 End: 11-15-2024 Patient encounter procedure 11/15/2024 1:20 PM EDT Office Visit Internal Medicine [place] [address] [place] [address] Zeny Lam APRN.THEATRICAL AGENT [address] [place] [address] 3 month follow up Internal Medicine [place] Comment on above: 3 month follow up Start: 11-09-2024 End: 11-09-2024 ambulatory 11/09/2024 11:30 AM EDT Results Only Alena Fernandezwn [facility] Laboratory [address] [place] [address] PT/INR--PROTHROMBIN TIME [PT] [facility] Laboratory Comment on above: PT/INR--PROTHROMBIN TIME [PT] Start: 11-04-2024 End: 11-04-2024 Patient encounter procedure 11/04/2024 2:15 PM EDT Appointment Radiology [address] [place] [id number] Screening for osteoporosis [Z13.820 Radiology Comment on above: Screening for osteoporosis [Z13.820 Start: 11-01-2024 DIABETES SCREEN DIABETES SCREEN [facility] Start: 10-28-2024 End: 10-28-2024 [facility]: PT/INR Start: 10-20-2024 End: 01-19-2025 ALGN [facility] Comment on above: Expected: 10/20/2024, Expires: Start: 10-20-2024 End: 01-19-2025 IgE [Units/volume] in Serum or Plasma [facility] Comment on above: Expected: 10/20/2024, Expires: Start: 10-20-2024 End: 11-19-2025 XR Chest PA and Lateral [facility] Work Phone: Comment on above: Expected: 10/20/2024, Expires: Start: 10-20-2024 End: 10-20-2024 Patient encounter procedure 10/20/2024 1:30 PM EDT Office Visit Pulmonary Medicine [address] [place] [address] Mirlande Funez MD [address] [place] [address] Shortness of breath [R06.02] Pulmonary Medicine Comment on above: Shortness of breath [R06.02] Start: 10-14-2024 End: 10-14-2024 ambulatory 10/14/2024 11:15 AM EDT Results Only Ernest [place] [facility] Laboratory [address] [place] [address] PT/INR [place] [facility] Laboratory Comment on above: PT/INR Start: 10-11-2024 End: 10-11-2024 Patient encounter procedure 10/11/2024 1:00 PM EDT Office Visit Podiatry [address] [place] [address] Gayle Green [address] [place] [address] 10 week follow up nail care Podiatry Comment on above: 10 week follow up nail care Start: 10-05-2024 End: 10-05-2024 ambulatory 10/05/2024 11:00 AM EDT Results Only [place] [facility] [address] [place] [address] INR [facility] [place] [facility] Laboratory Comment on above: INR Start: 10-04-2024 End: 10-04-2024 Patient encounter procedure 10/04/2024 2:00 PM EDT Office Visit Integrative Medicine [address] [place] [address] Walt Yang R [address] [place] [address] ACUPUNCTURE Integrative Medicine Comment on above: ACUPUNCTURE Start: 09-21-2024 End: 09-21-2024 ambulatory 09/21/2024 11:30 AM EDT Results Only Alena Fernandezwn [facility] Laboratory [address] [place] [address] lab-INR [facility] Laboratory Comment on above: lab-INR Start: 09-20-2024 End: 09-20-2024 Patient encounter procedure 09/20/2024 2:00 PM EDT Office Visit Integrative Medicine [address] [place] [address] Walt Yang R Ac [address] [place] [address] ACUPUNCTURE Integrative Medicine Comment on above: ACUPUNCTURE Start: 09-19-2024 End: 12-19-2024 CBC W Auto Differential panel - Blood COMPLETE BLOOD COUNT AND DIFFERENTIAL Lab Routine Encounter for therapeutic drug monitoring Expected: 09/19/2024, Expires: 12/19/2024 [facility] Work Phone: Comment on above: Expected: 09/19/2024, Expires: Start: 09-19-2024 End: 12-19-2024 Comprehensive metabolic 2000 panel - Serum or Plasma COMPREHENSIVE METABOLIC PANEL Lab Routine Encounter for therapeutic drug monitoring Expected: 09/19/2024, Expires: 12/19/2024 [facility] Comment on above: Expected: 09/19/2024, Expires: Start: 09-19-2024 End: 12-19-2024 Hemoglobin A1c in Blood HEMOGLOBIN A1C Lab Routine IFG (impaired fasting glucose) Expected: 09/19/2024, Expires: 12/19/2024 [facility] Comment on above: Expected: 09/19/2024, Expires: Start: 09-19-2024 End: 12-19-2024 TOXICOLOGY SCREEN, ROUTINE URINE TOXICOLOGY SCREEN, ROUTINE URINE Lab Routine Encounter for therapeutic drug monitoring Expected: 09/19/2024, Expires: 12/19/2024 [facility] Comment on above: Expected: 09/19/2024, Expires: Start: 09-14-2024 Annual PCP Team Chronic Disease Visit Annual PCP Team Chronic Disease Visit [facility] Start: 09-14-2024 BP Controlled (<130/80) BP Controlled (<130/80) [facility] Start: 09-08-2024 End: 09-08-2024 Patient encounter procedure 09/08/2024 2:00 PM EDT Office Visit Integrative Medicine [address] [place] [address] Walt Yang R [address] [place] [address] ACUPUNCTURE Integrative Medicine Comment on above: ACUPUNCTURE Start: 09-07-2024 End: 09-07-2024 ambulatory 09/07/2024 11:30 AM EDT Results Only Alena Fernandezwn [facility] Laboratory [address] [place] [address] inr [facility] Laboratory Comment on above: inr Start: 08-24-2024 Annual PCP Team Chronic Disease Visit Annual PCP Team Chronic Disease Visit [facility] Start: 08-24-2024 BP Controlled (<130/80) BP Controlled (<130/80) [facility] Start: 08-24-2024 End: 08-24-2024 ambulatory 08/24/2024 11:00 AM EDT Results Only [place] [facility] Laboratory [address] [place] [address] INR [facility] Laboratory Comment on above: INR Start: 08-23-2024 End: 08-23-2024 Patient encounter procedure 08/23/2024 2:00 PM EDT Office Visit Integrative Medicine [address] [place] [address] Walt Yang R Ac [address] [place] [address] ACUPUNCTURE Integrative Medicine Comment on above: ACUPUNCTURE Start: 08-15-2024 End: 08-15-2024 Patient encounter procedure Internal Med sean [place] Comment on above: Medicare wellness exam Start: 08-11-2024 End: 08-11-2024 Patient encounter procedure Ophthalmolog y Comment on above: Vision changes Start: 08-10-2024 End: 08-10-2024 ambulatory 08/10/2024 11:00 AM EDT Results Only Alena Mike [facility] Laboratory [address] [place] [address] INR [place] [facility] Laboratory Comment on above: INR Start: 08-09-2024 BP Controlled (<130/80) BP Controlled (<130/80) [facility] Start: 08-09-2024 End: 08-09-2024 Patient encounter procedure 08/09/2024 2:00 PM EDT Office Visit Integrative Medicine [address] [place] [address] Walt Yang R [address] [place] [address] ACUPUNCTURE Integrative Medicine Comment on above: ACUPUNCTURE Start: 08-08-2024 End: 11-07-2024 Creatinine and Glomerular filtration rate.predicted panel - Serum, Plasma or Blood CREATININE BLD Lab Routine Shortness of breath Expected: 08/08/2024, Expires: 11/07/2024 [facility] Comment on above: Expected: 08/08/2024, Expires: Start: 08-08-2024 End: 08-08-2024 Patient encounter procedure 08/08/2024 1:00 PM EDT Office Visit Cardiology [address] [place] [address] Sunny Mercedes MD [address] [facility] [address] [place], [place] [id number] 1 yr follow up Cardiology Comment on above: 1 yr follow up Start: 08-04-2024 End: 08-04-2024 ambulatory PULM LAB [facility] Comment on above: Shortness of breath [R06.02] Start: 07-28-2024 End: 07-28-2024 Patient encounter procedure Podiatry Comment on above: 10 week follow up nail care Start: 07-27-2024 End: 07-27-2024 ambulatory 07/27/2024 11:15 AM EDT Results [facility] [address] [place] [address] [facility] Comment on above: [facility]R Start: 07-26-2024 End: 07-26-2024 Patient encounter procedure Integrative Medicine Comment on above: Chronic lower back pain. Sign AFR* Start: 07-26-2024 Annual PCP Team Chronic Disease Visit Annual PCP Team Chronic Disease Visit [facility] Start: 07-26-2024 BP Controlled (<130/80) BP Controlled (<130/80) [facility] Start: 07-25-2024 End: 07-25-2024 Patient encounter procedure 07/25/2024 11:20 AM EDT Office Visit Internal Medicine Ernest [address] [place] [address] Zeny Lam APRN.THEATRICAL AGENT [address] [place] [address] follow up stress test results Internal Medicine Ernest Comment on above: follow up stress test results Start: 07-20-2024 BP Controlled (<130/80) BP Controlled (<130/80) [facility] Start: 07-18-2024 End: 07-18-2024 Nursing evaluation of patient and report 07/18/2024 8:45 AM EDT Nurse Visit Cardiology [address] [place] [address] Wstr, Nurse Card [address] [place] [address] : Shortness of breath [R06.02] Cardiology Comment on above: : Shortness of breath [R06.02] Start: 07-18-2024 End: 07-18-2024 Patient encounter procedure Nuclear Medi cine Comment on above: : Shortness of breath [R06.02] Start: 07-17-2024 Annual PCP Team Chronic Disease Visit Annual PCP Team Chronic Disease Visit [facility] Start: 07-17-2024 BP Controlled (<130/80) BP Controlled (<130/80) [facility] Start: 07-13-2024 End: 07-13-2024 ambulatory 07/13/2024 11:00 AM EDT Results Only [place] Mike [facility] [address] [place] [address] LABS Ernestrajinder Fernandezwn [facility] Comment on above: LABS Start: 07-12-2024 Covid-19 Vaccine ( season) Covid-19 Vaccine ( season) [facility] Start: 06-29-2024 End: 06-29-2024 ambulatory 06/29/2024 11:30 AM EDT Results Only [place] Mike [facility] [address] [place] [address] PT INR [place] [facility] Comment on above: PT INR Start: 06-28-2024 Annual PCP Team Chronic Disease Visit Annual PCP Team Chronic Disease Visit [facility] Start: 06-28-2024 BP Controlled (<130/80) BP Controlled (<130/80) [facility] Start: 06-15-2024 End: 06-15-2024 ambulatory 06/15/2024 11:30 AM EDT Results Only [place] Mike [facility] [address] [place] [address] PT/INR Al[place] Fernandezwn [facility] Comment on above: PT/INR Start: 06-14-2024 BP Controlled (<130/80) BP Controlled (<130/80) [facility] Start: 06-13-2024 End: 06-13-2024 Patient encounter procedure Cardiology Comment on above: 1 yr follow up Start: 06-08-2024 End: 06-08-2024 Patient encounter procedure 06/08/2024 3:00 PM EST Office Visit Internal Medicine [place] [address] [place] [address] Zeny Lam APRN.THEATRICAL AGENT [address] [place] [address] discuss stress test ordered Internal Medicine Ernest Comment on above: discuss stress test ordered Start: 06-01-2024 End: 06-01-2024 ambulatory 06/01/2024 11:00 AM EST Results Only [place] Mike [facility] [address] [place] [address] INR Ernest [facility] Comment on above: INR Start: 05-26-2024 BP Controlled (<130/80) BP Controlled (<130/80) [facility] Start: 05-24-2024 End: 05-24-2024 Patient encounter procedure Vascular Luis melvina Comment on above: 1 yr follow up CAROTID , SEE DR. NETO HWANG AFTER Start: 05-19-2024 End: 05-19-2024 Patient encounter procedure 05/19/2024 1:30 PM EST Office Visit Podiatry [address] [place] [address] Gayle Green [address] [address] Neuropathy Podiatry Comment on above: Neuropathy Start: 05-18-2024 Annual PCP Team Chronic Disease Visit Annual PCP Team Chronic Disease Visit [facility] Start: 05-18-2024 BP Controlled (<130/80) BP Controlled (<130/80) [facility] Start: 05-18-2024 End: 05-18-2024 ambulatory 05/18/2024 11:30 AM EST Results Only [place] Mike [facility] [address] [place] [address] INR Ernest [facility] Comment on above: INR Start: 05-17-2024 End: 05-17-2024 Patient encounter procedure 05/17/2024 1:40 PM EST Office Visit Family Medicine Ernest [address] [place] [address] Teri Gruber APRN.THEATRICAL AGENT [address] [place] [address] 3 month medication follow up Family Medicine [place] Comment on above: 3 month medication follow up Start: 05-11-2024 End: 05-11-2024 ambulatory 05/11/2024 11:15 AM EST Results Only [place] Mike [facility] [address] [place] [address] INR [place] [facility] Comment on above: INR Start: 05-07-2024 DIABETES SCREEN DIABETES SCREEN [facility] Start: 04-26-2024 End: 07-26-2024 Magnesium [Mass/volume] in Serum or Plasma MAGNESIUM Lab Routine Side effect of medication Expected: 04/26/2024 (Approximate), Expires: 07/26/2024 [facility] Work Phone: Comment on above: Expected: 04/26/2024 (Approximate), Expi res: 07/26/2024 Start: 04-26-2024 End: 04-26-2024 ambulatory [facility] Laboratory Comment on above: Lab Start: 04-08-2024 End: 04-08-2024 ambulatory 04/08/2024 11:30 AM EST Results Only [place] [facility] [address] [place] [address] INR [facility] Laboratory Comment on above: INR Start: 04-06-2024 Advance Directive Discussion Advance Directive Discussion [facility] Start: 03-24-2024 Annual PCP Team Chronic Disease Visit Annual PCP Team Chronic Disease Visit [facility] Start: 03-24-2024 BP Controlled (<130/80) BP Controlled (<130/80) [facility] Start: 03-24-2024 End: 03-24-2024 ambulatory 03/24/2024 11:15 AM EST Results Only Ernestrajinder [place] [facility] [address] [place] [address] Labs [facility] Comment on above: Labs Start: 03-10-2024 End: 03-10-2024 ambulatory 03/10/2024 11:15 AM EST Results Only [place]wn [facility] [address] [place] [address] Lab [facility] Comment on above: Lab Start: 02-29-2024 End: 02-29-2024 Patient encounter procedure 02/29/2024 11:40 AM EST Appointment Cat Scan [address] [address] Primary hypertension [I10]; Dizziness [R42] Cat Scan Comment on above: Primary hypertension [I10]; Dizziness [R 42] Start: 02-26-2024 End: 02-26-2024 Patient encounter procedure 02/26/2024 2:00 PM EST Office Visit Internal Medicine Ernest [address] [place] [address] Zeny Lam APRN.THEATRICAL AGENT [address] [place] [address] 5 month follow up Internal Medicine [place] Comment on above: 5 month follow up Start: 02-25-2024 BP Controlled (<130/80) BP Controlled (<130/80) [facility] Start: 02-23-2024 End: 02-23-2024 ambulatory 02/23/2024 11:00 AM EST Results Only [place]wn [facility] [address] [place] [address] Lab [facility] Comment on above: Lab Start: 02-15-2024 End: 02-15-2024 Patient encounter procedure 02/15/2024 2:20 PM EST Office Visit Internal Medicine [place] [address] [facility] [place] [address] Zeny Lam APRN.THEATRICAL AGENT [address] [place] [address] 5 month follow up Internal Medicine Ernest Comment on above: 5 month follow up Start: 02-09-2024 End: 02-09-2024 ambulatory 02/09/2024 11:00 AM EST Results Only [place] [facility] [address] [place] [address] lab [facility] Comment on above: lab Start: 02-04-2024 Covid-19 Vaccine () Covid-19 Vaccine () [facility] Start: 02-04-2024 Covid-19 Vaccine () Covid-19 Vaccine () [facility] Start: 01-26-2024 End: 01-26-2024 ambulatory 01/26/2024 11:00 AM EDT Results Only [place] Mike [facility] [address] [place] [address] 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) [I26.99] [place]wn [facility] Comment on above: 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) [I26. 99] Start: 01-24-2024 Annual PCP Team Chronic Disease Visit Annual PCP Team Chronic Disease Visit [facility] Start: 01-24-2024 BP Controlled (<130/80) BP Controlled (<130/80) [facility] Start: 01-15-2024 End: 01-15-2024 Patient encounter procedure 01/15/2024 11:20 AM EDT Office Visit Internal Medicine Ernest [address] [facility] [place] [address] Zeny Lam APRN.THEATRICAL AGENT [address] [facility] [place] [address] [facility] ER Follow up 01/08/2024 Internal Medicine Ernest Comment on above: [facility] ER Follow up 01/08/2024 Start: 01-14-2024 Annual PCP Team Chronic Disease Visit Annual PCP Team Chronic Disease Visit [facility] Start: 01-14-2024 BP Controlled (<130/80) BP Controlled (<130/80) [facility] Start: 01-12-2024 End: 01-12-2024 ambulatory 01/12/2024 11:30 AM EDT Results Only [place] Mike [facility] [address] [place] [address] 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) [I26.99] [place] Mike [facility] Comment on above: 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) [I26. 99] Start: 01-06-2024 End: 01-06-2024 Patient encounter procedure 01/06/2024 11:20 AM EDT Office Visit Internal Medicine [place] [address] [facility] [place] [address] Zeny Lam APRN.THEATRICAL AGENT [address] [facility] [address] sleeping 14 hours a day, cold sweats, short of breath, fatigued, changes in bowel habits (reading things signs of heart attack and colon cancer) Internal Medicine Ernest Comment on above: sleeping 14 hours a day, cold sweats, sh ort of breath, fatigued, changes in bowel habits (reading things signs of heart attack and colon cancer) Start: 01-05-2024 End: 01-05-2024 ambulatory 01/05/2024 11:00 AM EDT Results Only Ernest [place] [facility] [address] [place] [address] Vitamin D deficiency [E55.9]- [facility] LOC [facility] Laboratory Comment on above: Vitamin D deficiency [E55.9]- [facility] LOC Start: 01-01-2024 End: 01-01-2024 ambulatory 01/01/2024 11:15 AM EDT Results Only Ernest [place] [facility] [address] [place] [address] INR [place] [facility] Comment on above: INR Start: 12-30-2023 Annual PCP Team Chronic Disease Visit Annual PCP Team Chronic Disease Visit [facility] Start: 12-30-2023 BP Controlled (<130/80) BP Controlled (<130/80) [facility] Start: 12-28-2023 End: 12-28-2023 ambulatory 12/28/2023 11:15 AM EDT Results Only Ernest [place] [facility] [address] [place] [address] INR Ernest [place] [facility] Comment on above: INR Start: 12-18-2023 End: 12-18-2023 ambulatory 12/18/2023 11:30 AM EDT Results Only Ernest [place] [facility] [address] [place] [address] INR [place] [facility] Laboratory Comment on above: INR Start: 12-14-2023 End: 12-14-2023 Patient encounter procedure 12/14/2023 1:40 PM EDT Office Visit Internal Medicine Ernest [address] [facility] [place] [address] Zeny Lam APRN.THEATRICAL AGENT [address] [facility] [address] Tired; lighheaded x 2 weeks Internal Medicine [place] Comment on above: Tired; lighheaded x 2 weeks Start: 12-08-2023 End: 12-08-2023 ambulatory 12/08/2023 11:30 AM EDT Results [facility] [address] [place] [address] PT/INR Lab [facility] Laboratory Comment on above: PT/INR Lab Start: 12-06-2023 Covid-19 Vaccine () Covid-19 Vaccine () [facility] Start: 12-06-2023 Influenza vaccination Influenza Vaccine (#1) [facility] Start: 11-25-2023 ANNUAL PCP TEAM CHRONIC DISEASE VISIT ANNUAL PCP TEAM CHRONIC DISEASE VISIT [facility] Start: 11-24-2023 End: 11-24-2023 ambulatory 11/24/2023 11:00 AM EDT Results Only [place]andezwn [facility] [address] [place] [address] lab [facility] Laboratory Comment on above: lab Start: 11-16-2023 End: 11-16-2023 Patient encounter procedure 11/16/2023 1:30 PM EDT Office Visit Urology [address] [place] [address] Micah Portillo APRN.THEATRICAL AGENT, DNP [address] [facility] [place] [address] 3 MONTH FOLLOW UP Urology Comment on above: 3 MONTH FOLLOW UP Start: 11-12-2023 End: 11-12-2023 Patient encounter procedure Integrative Medicine Comment on above: ACUPUNCTURE SIGN AFR* Start: 11-10-2023 End: 11-10-2023 ambulatory 11/10/2023 11:00 AM EDT Results Only [place] Mike [facility] [address] [place] [address] lab [place] Mike [facility] Laboratory Comment on above: lab Start: 10-30-2023 End: 10-30-2023 ambulatory 10/30/2023 11:30 AM EDT Results Only [place] [facility] Draw Station [address] [place] [address] lab Ernest [facility] Draw Station Comment on above: lab Start: 10-29-2023 BP CONTROLLED (<130/80) BP CONTROLLED (<130/80) [facility] Start: 10-24-2023 Covid-19 Vaccine () Covid-19 Vaccine () [facility] Start: 10-20-2023 End: 10-20-2023 ambulatory 10/20/2023 11:15 AM EDT Results Only [place] Mahajann [facility] [address] [place] [address] 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) [I26.99] [place] [facility] Comment on above: 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) [I26. 99] Start: 10-05-2023 End: 10-05-2023 ambulatory 10/05/2023 11:15 AM EDT Results Only [place] Mike [facility] [address] [place] [address] 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) [I26.99] Al[place]arajinder Fernandezwn [facility] Comment on above: 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) [I26. 99] Start: 09-23-2023 End: 09-23-2023 ambulatory 09/23/2023 11:30 AM EDT Results Only [place] Mahajann [facility] [address] [place] [address] PROTHROMBIN TIME/PT [PT] Ernestrajinder Fernandezwn [facility] Comment on above: PROTHROMBIN TIME/PT [PT] Start: 09-15-2023 End: 09-15-2023 Patient encounter procedure 09/15/2023 1:20 PM EDT Office Visit Internal Medicine Ernest [address] [facility] [place] [address] Zeny Lam APRN.THEATRICAL AGENT [address] [facility] [address] physical and 6 month follow up Internal Medicine Ernest Comment on above: physical and 6 month follow up Start: 09-11-2023 End: 09-11-2023 ambulatory 09/11/2023 11:30 AM EDT Results Only [place] [facility] [address] [place] [address] LABS [place] [facility] Comment on above: LABS Start: 09-08-2023 End: 09-08-2023 ambulatory 09/08/2023 11:00 AM EDT Results Only [place] [facility] [address] [place] [address] Encounter for drug monitoring Z51.81 and Vitamin D deficiency E55.9 Ernest [place] [facility] Comment on above: Encounter for drug monitoring Z51.81 and Vitamin D deficiency E55.9 Start: 09-07-2023 End: 09-07-2023 Patient encounter procedure 09/07/2023 11:20 AM EDT Office Visit [facility] [address] [address] [place] [address] [place] [address] Last OV 11/10/2022 [facility] Comment on above: Last OV 11/10/2022 Start: 09-04-2023 End: 09-04-2023 ambulatory 09/04/2023 11:30 AM EDT Results Only Ernest [place] [facility] [address] [place] [address] 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) [I26.99] [place] [facility] Comment on above: 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) [I26. 99] Start: 08-27-2023 End: 08-27-2023 Patient encounter procedure 08/27/2023 1:30 PM EDT Office Visit [facility] [address] [place] [address] Irene Moraes MD [address] [place], [place] [id number] NEW CONSULT [facility] Comment on above: NEW CONSULT Start: 08-25-2023 End: 08-25-2023 Patient encounter procedure 08/25/2023 9:40 AM EDT Office Visit Internal Medicine Ernest [address] [place], [place] [id number] Zeny Lam APRN.THEATRICAL AGENT [address] [place], [place] [address] follow up Internal Medicine Ernest Comment on above: follow up Start: 08-23-2023 ANNUAL PCP TEAM CHRONIC DISEASE VISIT ANNUAL PCP TEAM CHRONIC DISEASE VISIT [facility] Start: 08-23-2023 BP CONTROLLED (<130/80) BP CONTROLLED (<130/80) [facility] Start: 08-21-2023 End: 08-21-2023 ambulatory 08/21/2023 11:15 AM EDT Results Only [place] [facility] [address] [place], [place] [address] 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) [I26.99] [facility] Comment on above: 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) [I26. 99] Start: 08-19-2023 Covid-19 Vaccine () Covid-19 Vaccine () [facility] Start: 08-14-2023 End: 08-14-2023 Patient encounter procedure 08/14/2023 1:50 PM EDT Office Visit Cardiology [address] [place], [place] [id number] Primary hypertension [I10] Cardiology Comment on above: Primary hypertension [I10] Start: 08-14-2023 End: 08-14-2023 ambulatory 08/14/2023 11:15 AM EDT Results Only [place] [facility] [address] [facility] [place] [address] PROTHROMBIN TIME/PT [PT] [place] [facility] Station Comment on above: PROTHROMBIN TIME/PT [PT] Start: 08-12-2023 ANNUAL PCP TEAM CHRONIC DISEASE VISIT ANNUAL PCP TEAM CHRONIC DISEASE VISIT [facility] Start: 08-12-2023 BP CONTROLLED (<130/80) BP CONTROLLED (<130/80) [facility] Start: 08-12-2023 End: 08-12-2023 ambulatory 08/12/2023 11:15 AM EDT Results Only [place] Mike [facility] [address] [place] [address] PROTHROMBIN TIME/PT [PT] [place]wn [facility] Comment on above: PROTHROMBIN TIME/PT [PT] Start: 08-10-2023 End: 08-10-2023 Patient encounter procedure 08/10/2023 1:00 PM EDT Office Visit Urology [address] [address] Micah Portillo APRN.THEATRICAL AGENT, DNP [address] [place] [address] BPH with obstruction/lower urinary tract symptoms [N40.1, N13.8] Urology Comment on above: BPH with obstruction/lower urinary tract symptoms [N40.1, N13.8] Start: 07-30-2023 End: 07-30-2023 ambulatory 07/30/2023 11:15 AM EDT Results Only [place] Mike [facility] [address] [place] [address] PROTHROMBIN TIME/PT [PT] [place] [facility] Comment on above: PROTHROMBIN TIME/PT [PT] Start: 07-13-2023 End: 10-12-2023 25-hydroxyvitamin D3 [Mass/volume] in Serum or Plasma VITAMIN D 25 HYDROXY Lab Routine Encounter for therapeutic drug monitoring Vitamin D deficiency Expected: 07/13/2023, Expires: 10/12/2023 [facility] Work Phone: Comment on above: Expected: 07/13/2023, Expires: Start: 07-13-2023 End: 10-12-2023 CBC W Auto Differential panel - Blood CBC + DIFF Lab Routine Encounter for therapeutic drug monitoring Expected: 07/13/2023, Expires: 10/12/2023 [facility] Work Phone: Comment on above: Expected: 07/13/2023, Expires: Start: 07-13-2023 End: 10-12-2023 Comprehensive metabolic 2000 panel - Serum or Plasma COMP METABOLIC PANEL Lab Routine Encounter for therapeutic drug monitoring Expected: 07/13/2023, Expires: 10/12/2023 [facility] Work Phone: Comment on above: Expected: 07/13/2023, Expires: Start: 07-13-2023 End: 10-12-2023 Lipid 1996 panel - Serum or Plasma LIPID PANEL BASIC Lab Routine Encounter for therapeutic drug monitoring Mixed hyperlipidemia Expected: 07/13/2023, Expires: 10/12/2023 [facility] Work Phone: Comment on above: Expected: 07/13/2023, Expires: Start: 07-13-2023 End: 10-12-2023 Magnesium [Mass/volume] in Serum or Plasma MAGNESIUM BLD Lab Routine Encounter for therapeutic drug monitoring Expected: 07/13/2023, Expires: 10/12/2023 [facility] Work Phone: Comment on above: Expected: 07/13/2023, Expires: Start: 06-02-2023 ANNUAL PCP TEAM CHRONIC DISEASE VISIT ANNUAL PCP TEAM CHRONIC DISEASE VISIT [facility] Start: 06-02-2023 End: 09-01-2023 Hemoglobin A1c in Blood HGB A1C Lab Routine Impaired fasting glucose Expected: 06/02/2023, Expires: 09/01/2023 [facility] Work Phone: Comment on above: Expected: 06/02/2023, Expires: Start: 04-06-2023 Advance Directive Discussion Advance Directive Discussion [facility] Start: 04-06-2023 Behavioral Health Screening Behavioral Health Screening [facility] Start: 04-06-2023 Depression Assessment Depression Assessment [facility] Start: 02-24-2023 End: 04-26-2023 Basic metabolic 2000 panel - Serum or Plasma BASIC METABOLIC PNL Lab Routine Kidney insufficiency Expected: 02/24/2023, Expires: 04/26/2023 [facility] Work Phone: Comment on above: Expected: 02/24/2023, Expires: 4 Start: 02-24-2023 End: 04-26-2023 CBC panel - Blood by Automated count CBC Lab Routine Kidney insufficiency Expected: 02/24/2023, Expires: 04/26/2023 [facility] Work Phone: Comment on above: Expected: 02/24/2023, Expires: 4 Start: 02-24-2023 End: 04-26-2023 Hemoglobin A1c in Blood HGB A1C Lab Routine Impaired fasting glucose Expected: 02/24/2023, Expires: 04/26/2023 [facility] Work Phone: Comment on above: Expected: 02/24/2023, Expires: 4 Start: 02-03-2023 BP CONTROLLED (<130/80) BP CONTROLLED (<130/80) [facility] Start: 12-05-2022 Influenza vaccination INFLUENZA (#1) [facility] Start: 11-13-2022 Adult depression screening assessment DEPRESSION SCREENING [facility] Start: 11-13-2022 ANNUAL PCP TEAM CHRONIC DISEASE VISIT ANNUAL PCP TEAM CHRONIC DISEASE VISIT [facility] Start: 11-13-2022 BP CONTROLLED (<130/80) BP CONTROLLED (<130/80) [facility] Start: 10-16-2022 ANNUAL PCP TEAM CHRONIC DISEASE VISIT ANNUAL PCP TEAM CHRONIC DISEASE VISIT [facility] Start: 09-23-2022 ANNUAL PCP TEAM CHRONIC DISEASE VISIT ANNUAL PCP TEAM CHRONIC DISEASE VISIT [facility] Start: 08-30-2022 End: 10-30-2022 Basic metabolic 2000 panel - Serum or Plasma BASIC METABOLIC PNL Lab Routine Impaired fasting glucose Expected: 08/30/2022, Expires: 10/30/2022 [facility] Work Phone: Comment on above: Expected: 08/30/2022, Expires: 3 Start: 08-30-2022 End: 10-30-2022 Hemoglobin A1c in Blood HGB A1C Lab Routine Impaired fasting glucose Expected: 08/30/2022, Expires: 10/30/2022 [facility] Work Phone: Comment on above: Expected: 08/30/2022, Expires: 3 Start: 08-22-2022 ANNUAL PCP TEAM CHRONIC DISEASE VISIT ANNUAL PCP TEAM CHRONIC DISEASE VISIT [facility] Start: 08-04-2022 End: 10-04-2022 Comprehensive metabolic 2000 panel - Serum or Plasma COMP METABOLIC PANEL Lab Routine 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) Mixed hyperlipidemia Primary hypertension Expected: 08/04/2022, Expires: 10/04/2022 [facility] Work Phone: Comment on above: Expected: 08/04/2022, Expires: 3 Start: 08-04-2022 End: 10-04-2022 Hematocrit [Volume Fraction] of Blood HEMATOCRIT (HCT) Lab Routine 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) Mixed hyperlipidemia Primary hypertension Expected: 08/04/2022, Expires: 10/04/2022 [facility] Work Phone: Comment on above: Expected: 08/04/2022, Expires: 3 Start: 08-04-2022 End: 10-04-2022 Hemoglobin [Mass/volume] in Blood HEMOGLOBIN (HGB) Lab Routine 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) Mixed hyperlipidemia Primary hypertension Expected: 08/04/2022, Expires: 10/04/2022 [facility] Work Phone: Comment on above: Expected: 08/04/2022, Expires: 3 Start: 08-04-2022 End: 10-04-2022 Lipid 1996 panel - Serum or Plasma LIPID PANEL BASIC Lab Routine 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) Mixed hyperlipidemia Primary hypertension Expected: 08/04/2022, Expires: 10/04/2022 [facility] Work Phone: Comment on above: Expected: 08/04/2022, Expires: 3 Start: 07-03-2022 ANNUAL PCP TEAM CHRONIC DISEASE VISIT ANNUAL PCP TEAM CHRONIC DISEASE VISIT [facility] Start: 07-03-2022 BP CONTROLLED (<130/80) BP CONTROLLED (<130/80) [facility] Start: 05-16-2022 ANNUAL PCP TEAM CHRONIC DISEASE VISIT ANNUAL PCP TEAM CHRONIC DISEASE VISIT [facility] Start: 05-16-2022 BP CONTROLLED (<130/80) BP CONTROLLED (<130/80) [facility] Start: 05-16-2022 End: 07-16-2022 CBC panel - Blood by Automated count CBC Lab Routine [facility]DC (current) use of anticoagulants Expected: 05/16/2022, Expires: 07/16/2022 [facility] Work Phone: Comment on above: Expected: 05/16/2022, Expires: 3 Start: 05-16-2022 End: 07-16-2022 Comprehensive metabolic 2000 panel - Serum or Plasma COMP METABOLIC PANEL Lab Routine Mixed hyperlipidemia Expected: 05/16/2022, Expires: 07/16/2022 [facility] Work Phone: Comment on above: Expected: 05/16/2022, Expires: 3 Start: 05-16-2022 End: 07-16-2022 Lipid 1996 panel - Serum or Plasma LIPID PANEL BASIC Lab Routine Mixed hyperlipidemia Expected: 05/16/2022, Expires: 07/16/2022 [facility] Work Phone: Comment on above: Expected: 05/16/2022, Expires: 3 Start: 05-16-2022 End: 07-16-2022 PSA/PROSTSPECAG SCRN PSA/PROSTSPECAG SCRN Lab Routine Screening for prostate cancer Expected: 05/16/2022, Expires: 07/16/2022 [facility] Work Phone: Comment on above: Expected: 05/16/2022, Expires: 3 Start: 04-06-2022 ADVANCE DIRECTIVE DISCUSSION ADVANCE DIRECTIVE DISCUSSION [facility] Start: 04-06-2022 DEPRESSION ASSESSMENT DEPRESSION ASSESSMENT [facility] Start: 03-24-2022 Patient discharge [facility] Work Phone: Start: 02-03-2022 End: 04-05-2022 TOX SCREEN ROUT UR TOX SCREEN ROUT UR Lab Routine Chronic low back pain without sciatica, unspecified back pain laterality Expected: 02/03/2022, Expires: 04/05/2022 [facility] Work Phone: Comment on above: Expected: 02/03/2022, Expires: Start: 12-05-2021 Influenza vaccination INFLUENZA (#1) [facility] Start: 07-09-2021 Adult depression screening assessment DEPRESSION SCREENING [facility] Start: 04-06-2021 ADVANCE DIRECTIVE DISCUSSION ADVANCE DIRECTIVE DISCUSSION [facility] Start: 04-06-2021 DEPRESSION ASSESSMENT DEPRESSION ASSESSMENT [facility] Start: 10-27-2019 BP CONTROLLED (<130/80) BP CONTROLLED (<130/80) [facility] Start: [birth year]-30-1963 Anxiety Screening Anxiety Screening [facility] Start: 08-30-1961 Depression Screening Depression Screening [facility] End: 09-14-2024 25-hydroxyvitamin D3 [Mass/volume] in Serum or Plasma VITAMIN D 25 HYDROXY Lab Routine Vitamin D deficiency Every 3 months for 6 Occurrences starting 09/15/2023 until 09/14/2024 [facility] Comment on above: Every 3 months for 6 Occurrences startin g 09/15/2023 until 09/14/2024 BACH SCREENING TEST BACH SCREENI NG TEST Procedures Routine Primary hypertension Ordered: 07/25/2024 [facility] Comment on above: Ordered: 07/25/2024 BACH SCREENING TEST BACH SCREENI NG TEST Procedures Routine Medicare annual wellness visit, subsequent MCI (mild cognitive impairment) Ordered: 08/15/2024 [facility] Work Phone: Comment on above: Ordered: 08/15/2024 BLADDER SCAN BLADDER SCAN Procedures Routine Benign prostatic hyperplasia with nocturia Ordered: 08/10/2023 [facility] Work Phone: Comment on above: Ordered: 08/10/2023 End: 09-14-2024 CBC W Auto Differential panel - Blood COMPLETE BLOOD COUNT AND DIFFERENTIAL Lab Routine Primary hypertension Encounter for therapeutic drug monitoring Every 3 months for 6 Occurrences starting 09/15/2023 until 09/14/2024 [facility] Work Phone: Comment on above: Every 3 months for 6 Occurrences startin g 09/15/2023 until 09/14/2024 End: 09-14-2024 Comprehensive metabolic 2000 panel - Serum or Plasma COMPREHENSIVE METABOLIC PANEL Lab Routine Primary hypertension Encounter for therapeutic drug monitoring Every 3 months for 6 Occurrences starting 09/15/2023 until 09/14/2024 [facility] Comment on above: Every 3 months for 6 Occurrences startin g 09/15/2023 until 09/14/2024 End: 09-07-2025 CT Chest W contrast IV CT CHEST W IVCON Radiology Routine Shortness of breath 1 Occurrences starting 08/08/2024 until 09/07/2025 [facility] Work Phone: Comment on above: 1 Occurrences starting 08/08/2024 until 09/07/2025 End: 03-16-2025 CT Head WO contrast CT BRAIN WO IVCON Radiology Routine Primary hypertension Dizziness 1 Occurrences starting 02/15/2024 until 03/16/2025 [facility] Work Phone: Comment on above: 1 Occurrences starting 02/15/2024 until 03/16/2025 ECG COMPLETE ECG COMPLETE ECG Routine Screening for ischemic heart disease Ordered: 06/08/2023 [facility] Work Phone: Comment on above: Ordered: 06/08/2023 ECG COMPLETE ECG COMPLETE ECG Routine SOB (shortness of breath) Ordered: 01/06/2024 [facility] Work Phone: Comment on above: Ordered: 01/06/2024 End: 07-26-2024 Echocardiography ECHO Cardiology Routine Primary hypertension 1 Occurrences starting 07/27/2023 until 07/26/2024 [facility] Work Phone: Comment on above: 1 Occurrences starting 07/27/2023 until 07/26/2024 End: 09-14-2024 Hemoglobin A1c in Blood HEMOGLOBIN A1C Lab Routine Impaired fasting glucose Every 3 months for 6 Occurrences starting 09/15/2023 until 09/14/2024 [facility] Comment on above: Every 3 months for 6 Occurrences startin g 09/15/2023 until 09/14/2024 End: 02-18-2023 INR in Platelet poor plasma by Coagulation assay INR (POC) Lab Routine 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) Once per month for 99 Occurrences starting 02/19/2022 until 02/18/2023 [facility] Work Phone: Comment on above: Once per month for 99 Occurrences starti ng 02/19/2022 until 02/18/2023 End: 11-07-2023 INR in Platelet poor plasma by Coagulation assay INR (POC) Lab Routine 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) [facility]DC (current) use of anticoagulants Once per week for 99 Occurrences starting 11/06/2022 until 11/07/2023 [facility] Work Phone: Comment on above: Once per week for 99 Occurrences startin g 11/06/2022 until 11/07/2023 End: 09-14-2024 LIPID PANEL, NONFASTING LIPID PANEL, NONFASTING Lab Routine Mixed hyperlipidemia Every 3 months for 6 Occurrences starting 09/15/2023 until 09/14/2024 [facility] Comment on above: Every 3 months for 6 Occurrences startin g 09/15/2023 until 09/14/2024 End: 08-24-2025 LUNG DIFFUSION CAPACITY (DLCO) LUNG DIFFUSION CAPACITY (DLCO) PFT Routine Shortness of breath 1 Occurrences starting 07/25/2024 until 08/24/2025 [facility] Work Phone: Comment on above: 1 Occurrences starting 07/25/2024 until 08/24/2025 LUNG DIFFUSION CAPACITY (DLCO) L ADAM DIFFUSION CAPACITY (DLCO) PFT Routine Shortness of breath 08/04/2024 12:22 PM EDT [facility] Work Phone: End: 09-14-2024 Magnesium [Mass/volume] in Serum or Plasma MAGNESIUM Lab Routine Encounter for therapeutic drug monitoring Every 3 months for 6 Occurrences starting 09/15/2023 until 09/14/2024 [facility] Comment on above: Every 3 months for 6 Occurrences startin g 09/15/2023 until 09/14/2024 End: 06-16-2024 MR Lumbar spine WO contrast MRI LUMBAR SPINE WO IVCON Radiology Routine Lumbar pain Acute bilateral low back pain without sciatica Fall, subsequent encounter 1 Occurrences starting 05/18/2023 until 06/16/2024 [facility] Work Phone: Comment on above: 1 Occurrences starting 05/18/2023 until 06/16/2024 End: 08-24-2025 NITRIC OXIDE, EXHALED NITRIC OXIDE, EXHALED PFT Routine Shortness of breath 1 Occurrences starting 07/25/2024 until 08/24/2025 [facility] Comment on above: 1 Occurrences starting 07/25/2024 until 08/24/2025 End: 11-19-2025 NITRIC OXIDE, EXHALED NITRIC OXIDE, EXHALED PFT Routine Mild persistent asthma without complication (HCC) 1 Occurrences starting 10/20/2024 until 11/19/2025 [facility] Comment on above: 1 Occurrences starting 10/20/2024 until 11/19/2025 End: 06-16-2025 NM Heart Perfusion W stress and W radionuclide IV NM CARDIAC PERF STRESS/PHARM Radiology Routine Shortness of breath 1 Occurrences starting 05/17/2024 until 06/16/2025 [facility] Work Phone: Comment on above: 1 Occurrences starting 05/17/2024 until 06/16/2025 Patient Education ED Head Injury (Adult) [facility] Work Phone: Patient referral [facility] Work Phone: POST VOID RESIDUAL POST VOID RES IDUAL Procedures Routine Benign prostatic hyperplasia with nocturia Ordered: 11/16/2023 [facility] Work Phone: Comment on above: Ordered: 11/16/2023 End: 12-26-2022 PT panel - Platelet poor plasma by Coagulation assay PROTHROMBIN TIME/PT Lab Routine [facility]DC (current) use of anticoagulants 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) 99 Occurrences starting 12/26/2021 until 12/26/2022 [facility] Work Phone: Comment on above: 99 Occurrences starting 12/26/2021 until 12/26/2022 End: 11-07-2023 PT panel - Platelet poor plasma by Coagulation assay PROTHROMBIN TIME/PT Lab Routine 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) [facility]DC (current) use of anticoagulants Once per week for 99 Occurrences starting 11/06/2022 until 11/07/2023 [facility] Work Phone: Comment on above: Once per week for 99 Occurrences startin g 11/06/2022 until 11/07/2023 End: 03-19-2024 PT panel - Platelet poor plasma by Coagulation assay PROTHROMBIN TIME/PT Lab Routine 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) Once per week for 53 Occurrences starting 03/20/2023 until 03/19/2024 [facility] Work Phone: Comment on above: Once per week for 53 Occurrences startin g 03/20/2023 until 03/19/2024 End: 03-24-2025 PT panel - Platelet poor plasma by Coagulation assay PROTHROMBIN TIME Lab Routine 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) 99 Occurrences starting 03/24/2024 until 03/24/2025, 1 completed [facility] Work Phone: Comment on above: 99 Occurrences starting 03/24/2024 until 03/24/2025, 1 completed SPINE INTERVENTION PROCEDURE SPI NE INTERVENTION PROCEDURE Procedures Routine Radiculopathy, lumbar region Ordered: 11/12/2022 [facility] Work Phone: Comment on above: Ordered: 11/12/2022 End: 08-24-2025 SPIROMETRY WITH DILATOR IF OBSTRUCTED SPIROMETRY WITH DILATOR IF OBSTRUCTED PFT Routine Shortness of breath 1 Occurrences starting 07/25/2024 until 08/24/2025 [facility] Comment on above: 1 Occurrences starting 07/25/2024 until 08/24/2025 SPIROMETRY WITH DILA TOR IF OBSTRUCTED SPIROMETRY WITH DILATOR IF OBSTRUCTED PFT Routine Shortness of breath 08/04/2024 12:22 PM EDT [facility] Work Phone: End: 05-26-2024 US Carotid arteries - bilateral US CAROTID ARTERIES [facility] Vascular Lab Routine Stenosis of left carotid artery 1 Occurrences starting 05/26/2023 until 05/26/2024 [facility] Work Phone: Comment on above: 1 Occurrences starting 05/26/2023 until 05/26/2024 End: 08-11-2024 US Carotid arteries - bilateral US CAROTID ARTERIES [facility] V[facility] Lab Routine Stenosis of left carotid artery 1 Occurrences starting 08/12/2023 until 08/11/2024 [facility] Work Phone: Comment on above: 1 Occurrences starting 08/12/2023 until 08/11/2024 End: 05-24-2025 US Carotid arteries - bilateral US CAROTID ARTERIES [facility] Vascular Lab Routine PAD (peripheral artery disease) ([facility]) 1 Occurrences starting 05/24/2024 until 05/24/2025 [facility] Comment on above: 1 Occurrences starting 05/24/2024 until 05/24/2025 End: 05-26-2024 US Lower extremity artery - bilateral PVR LEG [facility] Vascular Lab Routine PAD (peripheral artery disease) ([facility]) 1 Occurrences starting 05/26/2023 until 05/26/2024 [facility] Work Phone: Comment on above: 1 Occurrences starting 05/26/2023 until 05/26/2024 End: 08-11-2024 US Lower extremity artery - bilateral PVR LEG [facility] Vascular Lab Routine PAD (peripheral artery disease) ([facility]) 1 Occurrences starting 08/12/2023 until 08/11/2024 [facility] Comment on above: 1 Occurrences starting 08/12/2023 until 08/11/2024 End: 05-24-2025 US Lower extremity artery - bilateral PVR LEG [facility] Vascular Lab Routine Stenosis of left carotid artery 1 Occurrences starting 05/24/2024 until 05/24/2025 [facility] Work Phone: Comment on above: 1 Occurrences starting 05/24/2024 until 05/24/2025 End: 03-02-2025 XR Cervical spine AP and Lateral and oblique XR CERV OTHER 4V AP/LAT/OBL Radiology Routine Neck pain 1 Occurrences starting 02/01/2024 until 03/02/2025 [facility] Work Phone: Comment on above: 1 Occurrences starting 02/01/2024 until 03/02/2025 XR Cervical spine AP and Lateral and oblique XR CERV OTHER 4V AP/LAT/OBL Radiology Routine Neck pain 02/01/2024 3:14 PM EDT [facility] Immunizations Immunization Date Immunization Notes Care Provider Enzo ventura 05-17-2024 COVID-19 original vaccine, booster dose, monovalent (MODERNA) Edgarindiana Loaiza Work Phone: [facility] 05-17-2024 COVID-19 vaccine, ag e 12+ yr (MODERNA) Zeny Genaro AIR CONDITIONING SUPERVISOR.THEATRICAL AGENT Work Phone: [facility] 12-10-2023 COVID-19 original vaccine, booster dose, monovalent (MODERNA) Zeny Genaro AIR CONDITIONING SUPERVISOR.THEATRICAL AGENT Work Phone: [facility] 12-10-2023 COVID-19 vaccine, ag e 12+ yr (MODERNA) Zeny Genaro AIR CONDITIONING SUPERVISOR.THEATRICAL AGENT Work Phone: [facility] 11-27-2023 influenza (HD-IIV4) vaccine, age 65+ yr, high dose, quadrivalent, PF (FLUZONE HIGH-DOSE) Zeny Genaro AIR CONDITIONING SUPERVISOR.THEATRICAL AGENT Work Phone: [facility] 11-27-2023 Seasonal trivalent influenza vaccine, adjuvanted, preservative free Zeny Genaro AIR CONDITIONING SUPERVISOR.THEATRICAL AGENT Work Phone: [facility] 11-27-2023 influenza virus vacc ine, unspecified formulation Ccf Provider [facility] 06-24-2023 COVID-19 vaccine, ag e 12+ yr, season (MODERNA) Zeny Genaro AIR CONDITIONING SUPERVISOR.THEATRICAL AGENT Work Phone: [facility] 06-24-2023 COVID-19 vaccine, ag e 12+ yr, bivalent (MODERNA) Zeny Genaro AIR CONDITIONING SUPERVISOR.THEATRICAL AGENT Work Phone: [facility] 12-29-2022 COVID-19 vaccine, ag e 12+ yr, season (MODERNA) Zeny Genaro AIR CONDITIONING SUPERVISOR.THEATRICAL AGENT Work Phone: [facility] 12-02-2022 respiratory syncytia l virus (RSV) vaccine, bivalent (ABRYSVO) Mckinley Leal MD Work Phone: [facility] Work Phone: 12-01-2022 influenza (aIIV4) vaccine, age 65+ yr, quadrivalent, PF (FLUAD QUAD) Franc Hills MD Work Phone: [facility] Work Phone: 12-01-2022 influenza virus vacc ine, unspecified formulation Zeny Lam AIR CONDITIONING SUPERVISOR.THEATRICAL AGENT Work Phone: [facility] 07-31-2022 COVID-19 vaccine, ag e 12+ yr, bivalent (PFIZER-BIONTECH) Franc Hills MD Work Phone: [facility] 06-05-2022 zoster vaccine recombinant Franc Hills MD Work Phone: [facility] Work Phone: 04-07-2022 zoster vaccine recombinant Franc Hills MD Work Phone: [facility] Work Phone: 12-13-2021 COVID-19 vaccine, ag e 12+ yr, bivalent booster (PFIZER-BIONTECH) Sara Older AIR CONDITIONING SUPERVISOR.THEATRICAL AGENT Work Phone: [facility] 11-12-2021 influenza (aIIV4) vaccine, age 65+ yr, quadrivalent, PF (FLUAD QUAD) Franc Hills MD Work Phone: [facility] 11-12-2021 influenza, injectabl e, quadrivalent, contains preservative Franc Hills MD Work Phone: [facility] Work Phone: 07-03-2021 COVID-19 vaccine, ag e 12+ yr (PFIZER-BIONTECH - PURPLE TOP) Sara Older AIR CONDITIONING SUPERVISOR.THEATRICAL AGENT Work Phone: [facility] Work Phone: 01-10-2021 tetanus toxoid, redu ankita diphtheria toxoid, and acellular pertussis vaccine, adsorbed Franc Hills MD Work Phone: [facility] Work Phone: 01-01-2021 COVID-19 vaccine, ag e 12+ yr (PFIZER-BIONTECH - PURPLE TOP) Franc Hills MD Work Phone: [facility] Work Phone: 11-13-2020 influenza, high dose seasonal, preservative-free Franc Hills MD Work Phone: [facility] Work Phone: 05-31-2020 COVID-19 vaccine, ag e 12+ yr (PFIZER-BIONTECH - PURPLE TOP) Franc Hills MD Work Phone: [facility] 05-11-2020 COVID-19 vaccine, ag e 12+ yr (PFIZER-BIONTECH - PURPLE TOP) Franc Hills MD Work Phone: [facility] 11-19-2019 influenza, high dose seasonal, preservative-free Franc Hills MD Work Phone: [facility] Work Phone: 12-05-2018 influenza, high dose seasonal, preservative-free Franc Hills MD Work Phone: [facility] Work Phone: 12-05-2018 Seasonal trivalent influenza vaccine, adjuvanted, preservative free Franc Hills MD Work Phone: [facility] Work Phone: 12-14-2017 influenza, high dose seasonal, preservative-free Franc Hills MD Work Phone: [facility] Work Phone: 12-14-2017 Seasonal trivalent influenza vaccine, adjuvanted, preservative free Franc Hills MD Work Phone: [facility] Work Phone: 10-21-2017 tetanus toxoid, redu ankita diphtheria toxoid, and acellular pertussis vaccine, adsorbed Franc Hills MD Work Phone: [facility] Work Phone: 11-26-2016 Seasonal trivalent influenza vaccine, adjuvanted, preservative free Franc Hills MD Work Phone: [facility] Work Phone: 12-05-2015 influenza, injectabl e, quadrivalent, preservative free Franc Hills MD Work Phone: [facility] Work Phone: 12-05-2015 influenza, seasonal, injectable Franc Hills MD Work Phone: [facility] 04-17-2015 pneumococcal conjuga te vaccine, 13 valent Franc Hills MD Work Phone: [facility] 01-04-2015 influenza, high dose seasonal, preservative-free Franc Hills MD Work Phone: [facility] Work Phone: 01-18-2014 influenza, seasonal, injectable Franc Hills MD Work Phone: [facility] 12-19-2013 pneumococcal polysaccharide vaccine, 23 valent Franc Hills MD Work Phone: [facility] Work Phone: 12-08-2013 Pneumococcal Vaccine [facility] Work Phone: 12-08-2013 pneumococcal vaccine , unspecified formulation [facility] 12-05-2013 Influenza virus vaccine [facility] 12-05-2013 influenza, seasonal, injectable, preservative free Franc Hills MD Work Phone: [facility] Work Phone: 12-13-2012 influenza virus vacc ine, unspecified formulation Franc Hills MD Work Phone: [facility] Work Phone: 12-27-2011 influenza virus vacc ine, unspecified formulation Franc Hills MD Work Phone: [facility] Work Phone: 01-04-2011 influenza virus vacc ine, unspecified formulation Franc Hills MD Work Phone: [facility] Work Phone: 01-19-2010 influenza virus vacc ine, unspecified formulation Franc Hills MD Work Phone: [facility] 01-04-2010 pneumococcal polysaccharide vaccine, 23 valent Franc Hills MD Work Phone: [facility] Work Phone: 05-30-2009 tetanus and diphther ia toxoids, adsorbed, preservative free, for adult use (2 Lf of tetanus toxoid and 2 Lf of diphtheria toxoid) Franc Hills MD Work Phone: [facility] Work Phone: 01-08-2009 influenza virus vacc ine, unspecified formulation Franc Hills MD Work Phone: [facility] Work Phone: 12-07-2008 pneumococcal polysaccharide vaccine, 23 valent Franc Hills MD Work Phone: [facility] Work Phone: Payers Date Payer Category Payer Medicare (Managed Care) [employer] [id number] 2024 Unknown [employer] [id number] 2024-Present [phone] [address] [place] [address] O [id number] 2024 Medicare [id number] 2023 Self-pay [id number] 2022 Unknown [id number] 2015 Medicare [employer] MD[employer] PPO [id number] 2015-Present [phone] [place] [id number] [facility] [id number] 2015 Medicare [id number] 2014 Medicare [id number] 2014 Unknown [id number] Unknown [id number] Unknown [id number] Unknown [id number] Social History Date Type Detail Facility Start: 04-02-2012 End: 11-19-2024 Tobacco smoking status NHIS Ex-smoker [facility] Work Phone: Start: 04-06-1960 End: 04-06-1980 History of tobacco use Current smoker [facility] Work Phone: Start: 04-06-1960 End: 04-06-1980 History of tobacco use Cigarette Smoker [facility] Work Phone: Start: 05-16-2021 End: 11-15-2024 Alcohol intake Ex-drinker (finding) [facility] Start: 05-16-2021 End: 08-08-2022 Alcohol intake [facility] Start: 02-12-2019 End: 01-17-2020 History SDOH Alcohol Frequency 3 [facility] Start: 11-28-2019 End: 05-26-2022 History SDOH Alcohol Std Drinks 2 [facility] Start: 01-17-2020 End: 05-26-2022 History SDOH Alcohol Binge 1 [facility] Start: 04-20-2017 History SDOH Alcohol Comment CAGE negative. [facility] Start: 02-12-2019 End: 05-26-2022 History SDOH Social Connections Phone 5 [facility] Start: 02-12-2019 Education 18 [facility] Start: 1945 Sex Assigned At Male [facility] Start: 12-14-2019 End: 02-03-2022 Exposure to SARS-CoV-2 (event) Not sure [facility] Start: 09-28-2021 End: 03-24-2022 Tobacco smoking status NHIS Unknown if ever smoked [facility] Work Phone: Start: 05-08-2014 Occasional [facility] Start: 01-10-2021 None [facility] Start: 01-10-2021 Alone [facility] Start: 01-10-2021 Non-smoker [facility] Start: 04-02-2012 End: 12-14-2023 Tobacco use and exposure Smokeless tobacco non-user [facility] Start: 12-16-2021 End: 12-26-2021 Exposure to SARS-CoV-2 (event) Unable to assess [facility] Work Phone: Start: 05-26-2022 End: 06-02-2022 History SDOH Alcohol Frequency 4 [facility] Start: 08-11-2022 Alcohol Comment stopped 07/19/2022 [facility] Start: 05-26-2022 End: 08-08-2022 Social connection and isolation panel [facility] Do you belong to any clubs or organizations such as mosque groups, unions, fraternal or athletic groups, or school groups? No [facility] Are you now , , , , never or living with a partner? [facility] How often to you hav e a drink containing alcohol? 2-3 time sa week [facility] Work Phone: How many standard dr inks containing alcohol do you have on a typical day? 1 or 2 [facility] Work Phone: How often do you hav e 6 or more drinks on 1 occasion? Never [facility] Work Phone: Start: 03-07-2012 How hard is it for you to pay for the very basics like food, housing, medical care, and heating Not hard at all [facility] Do you feel stress - tense, restless, nervous, or anxious, or unable to sleep at night because your mind is troubled all the time - these days [OSQ] Not at all [facility] (I/We) worried wheth er (my/our) food would run out before (I/we) got money to buy more. Never true [facility] Start: 12-09-2018 Gender identity Identifies as male gender (finding) [facility] Start: 12-09-2018 Sexual orientation Heterosexual (finding) [facility] How many standard dr inks containing alcohol do you have on a typical day? 3 or 4 [facility] Start: 01-13-2020 Alcoholic beverage intake Current drinker of alcohol (finding) [facility] Do you feel stress - tense, restless, nervous, or anxious, or unable to sleep at night because your mind is troubled all the time - these days [OSQ] Only a little [facility] How often to you hav e a drink containing alcohol? 2-4 times a month [facility] How hard is it for y ou to pay for the very basics like food, housing, medical care, and heating Not very hard [facility] How often to you hav e a drink containing alcohol? Monthly or less [facility] Medical Equipment Procedure Code Equipment Code Equipment Origin al Text Equipment Identifier Dates Gas Io Ispan Vsn Sys 125gm Sf6 - [id number] Start: 05-04-2013 Lens Iol +21.5 D iop 13mm 6mm - [id number] Start: 05-04-2013 Patch Bovine Pericardial Vascular Duravess 8x8 - [id number] Start: 06-10-2019 Goals Date Patient Goal Desired Activity /State Personal health goal Functional Status Date Assessment Result Facility 08-08-2024 Total score [AUDIT-C] 2 08/09/19 10:08 AM EDT User, Giovanihart [facility] 08-08-2024 How often to you hav e a drink containing alcohol? Monthly or less 08/08/2024 10:08 AM EDT User, Mychart Monthly or less [facility] 08-08-[address] inks containing alcohol do you have on a typical day? 3 or 4 08/08/2024 10:08 AM EDT User, [email or web address] 3 or 4 [facility] 08-08-2024 How often do you hav e 6 or more drinks on 1 occasion? Never 08/08/2024 10:08 AM EDT User, Giovanihart Never [facility] 06-07-2024 Total score [AUDIT-C] 3 06/08/19 7:48 PM EST [facility] 06-07-2024 Within the last year , have you been humiliated or emotionally abused in other ways by your partner or ex-partner? No 06/07/2024 7:48 PM EST User, Giovanihart No [facility] 06-07-2024 Within the last year , have you been afraid of your partner or ex-partner? No 06/07/2024 7:48 PM EST User, [email or web address] No [facility] 06-07-2024 Within the last year , have you been raped or forced to have any kind of sexual activity by your partner or ex-partner? No 06/07/2024 7:48 PM EST User, Giovanihart No [facility] 06-07-2024 Within the last year , have you been kicked, hit, slapped, or otherwise physically hurt by your partner or ex-partner? No 06/07/2024 7:48 PM EST User, Mychart No [facility] 06-07-2024 How often to you hav e a drink containing alcohol? 2-4 times a month 06/07/2024 7:48 PM EST User, Mychart 2-4 times a month [facility] 06-07-[address] inks containing alcohol do you have on a typical day? 3 or 4 06/07/2024 7:48 PM EST User, Mychart 3 or 4 [facility] 06-07-2024 How often do you hav e 6 or more drinks on 1 occasion? Never 06/07/2024 7:48 PM EST UserBobbyt Never [facility] 06-06-2024 Total score [AUDIT-C] 3 06/07/19 9:06 AM EST User, Giovanihart [facility] 06-06-2024 Within the last year , have you been humiliated or emotionally abused in other ways by your partner or ex-partner? No 06/06/2024 9:06 AM EST User, Giovanihart No [facility] 06-06-2024 Within the last year , have you been afraid of your partner or ex-partner? No 06/06/2024 9:06 AM EST User, Giovanihart No [facility] 06-06-2024 Within the last year , have you been raped or forced to have any kind of sexual activity by your partner or ex-partner? No 06/06/2024 9:06 AM EST User, Bobbyt No [facility] 06-06-2024 Within the last year , have you been kicked, hit, slapped, or otherwise physically hurt by your partner or ex-partner? No 06/06/2024 9:06 AM EST User, Bobbyt No [facility] 06-06-2024 How often to you hav e a drink containing alcohol? 2-4 times a month 06/06/2024 9:06 AM EST User, [email or web address] 2-4 times a month [facility] 06-06-[address] inks containing alcohol do you have on a typical day? 3 or 4 06/06/2024 9:06 AM EST User, Giovanihart 3 or 4 [facility] 06-06-2024 How often do you hav e 6 or more drinks on 1 occasion? Never 06/06/2024 9:06 AM EST User, Bobbyt Never [facility] 06-11-2019 Are you deaf, or do you have serious difficulty hearing No 06/11/2019 9:31 AM Hilaria Shook, MORIAH No [facility] 06-11-2019 Are you blind, or do you have serious difficulty seeing, even when wearing glasses No 06/11/2019 9:31 AM Hilaria Shook RN No [facility] 06-11-2019 Do you have serious difficulty walking or climbing stairs No 06/11/2019 9:31 AM Hilaria Shook, MORIAH No [facility] 06-11-2019 Do you have difficul ty dressing or bathing No 06/11/2019 9:31 AM Hilaria Shook, MORIAH No [facility] 06-11-2019 Because of a physica l, mental, or emotional condition, do you have difficulty doing errands alone such as visiting a physician's office or shopping No 06/11/2019 9:31 AM Hilaria Shook, MORIAH No [facility] Mental Status Date Assessment Result Facility 11-19-2024 Cognitive function Level Of Cons ciousness Awake;Alert;Appropriate;Fol lows Commands [facility] Work Phone: 03-24-2022 Cognitive function Level Of Cons ciousness Drowsy [facility] Work Phone: 06-11-2019 Because of a physica l, mental, or emotional condition, do you have serious difficulty concentrating, remembering, or making decisions No 06/11/2019 9:31 AM Hilaria Shook, MORIAH No [facility] Clinical Notes 06-10-2019 to 11-20-2024 Note Date & Type Note Facility 11-20-2024 Discharge summary Note Date/Time November 20, 2024 1:18am [facility] Medical Records Department [address] [place] [address] Emergency Department Summary 11/19/24 MR#: [id number] Acct: [id number] Name: ALEX BROOKS Rep #:[id number] : 1945 79 From: Danielle Childress PCP: Teri Gruber NP-Joon Status:REG ER Location: ED HPI HPI - GI History of Present Illness Chief Complaint: Foreign Body Informant: patient Narrative Narrative: Patient is a 1-year-old male with history of PE, hypertension and COPD (on Coumadin) presenting with concern of chicken stuck in his throat. Patient states he got up chicken today was eating dinner. Prior to this he was in his normal state of health. He ate a bite of chicken and felt like a piece got stuck in his chest. He sat there for a while. Ultimately threw up. States he throat mucous infection was eating. He feels like he threw up a little bit of the chicken but then he swallowed it again and it feels like it is still stuck. He continues to have vomiting of mostly liquid and mucus at this point. He has had this happen before but never had to come to the hospital for it. States he does not chew his food very thoroughly. Is never had an EGD. No other complaints or concerns at this time. Denies any shortness of breath or difficulty breathing. Denies any choking episode. [facility] Medical History Wears glasses Alcohol use Kidney stone Back pain Injury of head and neck Former smoker Asthma Hoarseness History of pain when walking History of edema Hypertension History of echocardiogram History of stress test Cardiology follow-up encounter GERD (gastroesophageal reflux disease) Essential hypertension Lumbago-sciatica due to displacement of lumbar intervertebral disc Osteoarthritis Hyperlipidemia Neuropathy Left bundle branch block Pulmonary embolism Home Medications ?Medication ?Instructions ?Recorded ?Last Taken ?Type lisinopril 20 2 tab PO DAILY 11/11/1703/06 History mg-hydrochlorothiazide 12.5 mg tablet ascorbic acid (vitamin C) 1,000 mg 1 g PO DAILY Unknown History tablet coenzyme Q10 200 mg capsule 400 mg PO DAILY 12/16/18 U nknown History cyanocobalamin (vitamin B-12) 2,500 mcg sublingual BID 12/16/18 Unknown History 2,500 mcg sublingual lozenge fluticasone propionate 50 1 spray intranasal DAILY 03/24 Unknown History mcg/actuation nasal spray,suspension (Allergy Relief (fluticasone)) magnesium oxide 400 mg PO BID 12/16/18 Unkno wn History multivitamin 2 tab PO DAILY 12/16/18 Unkn own History rosuvastatin 10 mg tablet (Crestor) 40 mg PO QHS 12/16 Unknown History saw palmetto 450 mg capsule 450 mg PO BID 12/16/18 Unk nown History aspirin 81 mg tablet 81 mg PO DAILY 01/10/21 Unkn own History potassium chloride 10 mEq 10 meq PO BID 01/10/21 Unkno wn History capsule,extended release warfarin 10 mg tablet 10 mg PO DAILY 01/10/2103/06 History famotidine 40 mg tablet 40 mg PO PRN PRN GERD Unknown History lorazepam 1 mg tablet 2 mg PO QHS PRN PRN Insomnia 03/20/22 Unknown History oxycodone-acetaminophen 5 mg-325 1 tab PO PRN PRN Pain 03/20/22 Unknown History mg tablet oxycodone-acetaminophen 5 mg-325 1 tab PO Q8H PRN pain 3 days #10 05/14/23 Unknown Rx mg tablet (Percocet) tabs pantoprazole 40 mg granules 40 mg PO DAILY 05/14/23 Un known History delayed-release for susp in packet (Protonix) clonidine HCl 0.1 mg tablet 0.1 - 0.2 mg (1 - 2 x 0.1 mg) PO 01/08/24 Unknown Rx TID PRN SBP>165 #15 tabs Allergy/AdvReac Type Severity Reaction Status Date / Time cephalexin (From KeAss[facility]a) Allergy Intermediate Rash Verified 11/19/24 19:08 cyclobenzaprine AdvReac Mild PT UNABLE Verified 11/19/24 19:08 TO RESPOND-NEEDS F/U gabapentin AdvReac Mild Other Verified 11/19/24 19:08 Family History Father , Age 74 CAD (coronary artery disease) Myocardial infarction Mother , age 104 No problems noted. Surgical History Hx of carotid angioplasty H/O colonoscopy with polypectomy RFA of lumbar spine S/P IVC filter (~2011) History of hand surgery Social History Smoking Status: Former smoker pack-years: 15 ROS ROS ED Constitutional Constitutional ED: Denies chills or fever(s) Cardiovascular Cardiovascular: Denies chest pain Respiratory/Chest Respiratory/Chest: Denies cough or dyspnea Gastrointestinal Gastrointestinal: Reports nausea and vomiting; Denies abdominal pain Hematologic/Lymphatic Hematologic/Lymphatic: Reports easy bleeding, easy bruising and other Details: On Coumadin EXAM Physical Exam Const Vital Signs: 11/19/24 19:08 11/19/24 21:07 11/19/24 23:00 Temperature 98 F Temperature Source Oral Pulse Rate 69 80 85 Respiratory Rate 16 20 H Blood Pressure 130/82 H 120/78 178/90 H Blood Pressure Mean 98 92 119 Pulse Ox 92 96 93 Oxygen Delivery Method Room Air Positive well nourished and well developed General Appearance ED: well developed; Negative for pallor HEENT Reports moist mucous membranes HEENT Narrative: No trismus, no drooling Neck supple and no JVD Resp normal respiratory effort Resp Narrative: Faint end expiratory wheeze in the left upper lung field Effort and Inspection: Negative for respiratory distress Auscultation: Negative for diminished lung sounds Cardio regular rate and regular rhythm GI non-tender and non-distended Neuro moves all extremities Sensorium / Orientation: alert, oriented to person, oriented to place and oriented to time Motor Exam: Negative for general weakness Psych mental status grossly normal and thought process normal Skin General Skin Exam: Negative for jaundice or pallor MDM MDM MDM Narrative Medical decision making narrative: Patient valuated for vomiting and foreign body sensation after eating chicken. Concern for esophageal food impaction. Differential also includes esophagitis, gastritis and globus hystericus. Is otherwise asymptomatic no sudden onset after eating low suspicion for bowel obstruction. Patient is given IV glucagon and Zofran will reevaluate. No improvement with this. I did try having him jump up and down with that diet Coke. He did vomit up a whole piece of broccoli but continues to have further symptoms of esophageal impaction and console not tolerate p.o. I spoke with GI on-call, Dr. Simmons, who states that due to OR/anesthesia staffing we will need to scope within the morning to relieve the impaction. Did try IV Ativan per recommendation of GI with no improvement either. Patient is on a maintenance fluids as he cannot take anything by mouth. At baseline labs obtained including CBC, INR and BMP. He does have a mild leukocytosis of 13.2 by suspect is reactive from vomiting. Hemoglobin mildly concentrated 16.8. INR is therapeutic at 2.0. Bicarb mildly low at 15.4 and all this is more consistent with dehydration. Again patient is getting IV fluids in the ER. His creatinine is normal. Patient signed out to oncoming physician pending endoscopy in the morning anticipate discharge home after that for removal of esophageal food impaction. Lab Data Attestation: I reviewed the patient's lab results. Labs: Laboratory Results - last 24 hr 11/20/24 00:29 WBC 13.2 H RBC 5.32 Hgb 16.8 H Hct 50.1 MCV 94.2 H MCH 31.6 MCHC 33.5 RDW Std Deviation 48.7 H RDW Coeff of Uyen 14.2 Plt Count 155 MPV 10.4 Immature Gran % (Auto) 0.300 Neut % (Auto) 83.7 H Lymph % (Auto) 12.2 L [place] % (Auto) 3.3 Eos % (Auto) 0.1 Baso % (Auto) 0.4 Absolute Neuts (auto) 11.1 H Absolute Lymphs (auto) 1.61 Nucleated RBC % 0 PT 22.7 H INR 2.0 Sodium 140 Potassium 4.6 Chloride 110 H Carbon Dioxide 15.4 L Anion Gap 15 BUN 15 Creatinine 0.83 Estim Creat Clear Calc 78.88 Est GFR (MDRD) Non-Af 88 BUN/Creatinine Ratio 17.4 Glucose 104 H Calcium 9.1 Management 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) Discharge Plan Triage Chief Complaint: Foreign Body ED Provider: Danielle Han Dx/Rx/DC Orders Clinical Impression: Esophageal obstruction due to food impaction, Current use of retirement anticoagulation, Dehydration, mild Prescriptions: No Action lisinopril-hydrochlorothiazide 20-12.5 mg tablet 2 tab PO DAILY fluticasone propionate [Allergy Relief (fluticasone)] 50 mcg/actuation spray,suspension 1 spray INTRANASAL DAILY magnesium oxide 400 mg magnesium capsule 400 mg PO BID coenzyme Q10 200 mg capsule 400 mg PO DAILY multivitamin Tablet 2 tab PO DAILY ascorbic acid (vitamin C) 1,000 mg tablet 1 g PO DAILY saw palmetto 450 mg capsule 450 mg PO BID Patient Comments: supplement cyanocobalamin (vitamin B-12) 2,500 mcg lozenge 2,500 mcg SUBLINGUAL BID Patient Comments: supplement rosuvastatin [Crestor] 10 mg tablet 40 mg PO QHS warfarin 10 mg Tablet 10 mg PO DAILY potassium chloride 10 mEq capsule, extended release 10 meq PO BID aspirin 81 mg Tablet 81 mg PO DAILY famotidine 40 mg tablet 40 mg PO PRN PRN (Reason: GERD) Patient Comments: take 1 tablet by mouth once daily if needed oxycodone-acetaminophen 5-325 mg tablet 1 tab PO PRN PRN (Reason: Pain) Patient Comments: take 1 tablet by mouth every 4 hours if needed for pain for up to 7 days lorazepam 1 MG tablet 2 mg PO QHS PRN PRN (Reason: Insomnia) pantoprazole [Protonix] [address] for susp in packet 40 mg PO DAILY oxycodone-acetaminophen [Percocet] 5-325 mg tablet 1 tab PO Q8H PRN (Reason: pain) 3 Days Qty: 10 0RF clonidine HCl 0.1 mg tablet 0.1 - 0.2 mg PO TID PRN (Reason: SBP>165) Qty: 15 0RF Primary Care Provider: Teri Gruber NP Referrals: Zeny Lam NP, [facility]ICENS[facility] M[facility] HEALTH PROFESSIONAL-C [Non-Staff -Ordering Privileges] - Print Language: Burkinan What to do if you have Problems For any increased pain, shortness of breath, bleeding, nausea or vomiting, chestpain, or any unexpected problems, contact your Primary Care Provider. Call [facility] ([phone]) or report to the closest Emergency Room. Call 911 if necessary. 11/20/24 0118 <Electronically signed by Danielle Han DO> Cosigner Signature (if applicable): CC: CHRISTAL Gruber ~ Signed [facility] Work Phone: [phone] Discharge summary [facility] Medical Records Department [address] [place] [address] Emergency Department Summary 11/19/24 MR#: [id number] Acct: [id number] Name: ALEX BROOKS Rep #:[id number] : 1945 79 From: Danielle Childress PCP: CHRISTAL Coleman Status:REG ER Location: ED HPI HPI - GI History of Present Illness Chief Complaint: Foreign Body Informant: patient Narrative Narrative: Patient is a 1-year-old male with history of PE, hypertension and COPD (on Coumadin) presenting with concern of chicken stuck in his throat. Patient states he got up chicken today was eating dinner. Prior to this he was in his normal state of health. He ate a bite of chicken and felt like a piece got stuck in his chest. He sat there for a while. Ultimately threw up. States he throat mucous infection was eating. He feels like he threw up a little bit of the chicken but then he swallowed it againand it feels like it is still stuck. He continues to have vomiting of mostly liquid and mucus at this point. He has had this happen before but never had to come to the hospital for it. States he doesnot chew his food very thoroughly. Is never had an EGD. No other complaints or concerns at this time. Denies any shortness of breath or difficulty breathing. Denies any choking episode. [facility] Medical History Wears glasses Alcohol use Kidney stone Back pain Injury of head and neck Former smoker Asthma Hoarseness History of pain when walking History of edema Hypertension History of echocardiogram History of stress test Cardiology follow-up encounter GERD (gastroesophageal reflux disease) Essential hypertension Lumbago-sciatica due to displacement of lumbar intervertebral disc Osteoarthritis Hyperlipidemia Neuropathy Left bundle branch block Pulmonary embolism Home Medications ?Medication ?Instructions ?Recorded ?Last Taken ?Type lisinopril 20 2 tab PO DAILY 11/11/1703/06 History mg-hydrochlorothiazide 12.5 mg tablet ascorbic acid (vitamin C) 1,000 mg 1 g PO DAILY Unknown History tablet coenzyme Q10 200 mg capsule 400 mg PO DAILY 12/16/18 U nknown History cyanocobalamin (vitamin B-12) 2,500 mcg sublingual BID 12/16/18 Unknown History 2,500 mcg sublingual lozenge fluticasone propionate 50 1 spray intranasal DAILY 03/24 Unknown History mcg/actuation nasal spray,suspension (Allergy Relief (fluticasone)) magnesium oxide 400 mg PO BID 12/16/18 Unkno wn History multivitamin 2 tab PO DAILY 12/16/18 Unkn own History rosuvastatin 10 mg tablet (Crestor) 40 mg PO QHS 12/16 Unknown History saw palmetto 450 mg capsule 450 mg PO BID 12/16/18 Unk nown History aspirin 81 mg tablet 81 mg PO DAILY 01/10/21 Unkn own History potassium chloride 10 mEq 10 meq PO BID 01/10/21 Unkno wn History capsule,extended release warfarin 10 mg tablet 10 mg PO DAILY 01/10/2103/06 History famotidine 40 mg tablet 40 mg PO PRN PRN GERD Unknown History lorazepam 1 mg tablet 2 mg PO QHS PRN PRN Insomnia 03/20/22 Unknown History oxycodone-acetaminophen 5 mg-325 1 tab PO PRN PRN Pain 03/20/22 Unknown History mg tablet oxycodone-acetaminophen 5 mg-325 1 tab PO Q8H PRN pain 3 days #10 05/14/23 Unknown Rx mg tablet (Percocet) tabs pantoprazole 40 mg granules 40 mg PO DAILY 05/14/23 Un known History delayed-release for susp in packet (Protonix) clonidine HCl 0.1 mg tablet 0.1 - 0.2 mg (1 - 2 x 0.1 mg) PO 01/08/24 Unknown Rx TID PRN SBP>165 #15 tabs Allergy/AdvReac Type Severity Reaction Status Date / Time cephalexin (From [facility]) Allergy Intermediate Rash Verified 11/19/24 19:08 cyclobenzaprine AdvReac Mild PT UNABLE Verified 11/19/24 19:08 TO RESPOND-NEEDS F/U gabapentin AdvReac Mild Other Verified 11/19/24 19:08 Family History Father , Age 74 CAD (coronary artery disease) Myocardial infarction Mother , age 104 No problems noted. Surgical History Hx of carotid angioplasty H/O colonoscopy with polypectomy RFA of lumbar spine S/P IVC filter (~2011) History of hand surgery Social History Smoking Status: Former smoker pack-years: 15 ROS ROS ED Constitutional Constitutional ED: Denies chills or fever(s) Cardiovascular Cardiovascular: Denies chest pain Respiratory/Chest Respiratory/Chest: Denies cough or dyspnea Gastrointestinal Gastrointestinal: Reports nausea and vomiting; Denies abdominal pain Hematologic/Lymphatic Hematologic/Lymphatic: Reports easy bleeding, easy bruising and other Details: On Coumadin EXAM Physical Exam Const Vital Signs: 11/19/24 19:08 11/19/24 21:07 11/19/24 23:00 Temperature 98 F Temperature Source Oral Pulse Rate 69 80 85 Respiratory Rate 16 20 H Blood Pressure 130/82 H 120/78 178/90 H Blood Pressure Mean 98 92 119 Pulse Ox 92 96 93 Oxygen Delivery Method Room Air Positive well nourished and well developed General Appearance ED: well developed; Negative for pallor HEENT Reports moist mucous membranes HEENT Narrative: No trismus, no drooling Neck supple and no JVD Resp normal respiratory effort Resp Narrative: Faint end expiratory wheeze in the left upper lung field Effort and Inspection: Negative for respiratory distress Auscultation: Negative for diminished lung sounds Cardio regular rate and regular rhythm GI non-tender and non-distended Neuro moves all extremities Sensorium / Orientation: alert, oriented to person, oriented to place and oriented to time Motor Exam: Negative for general weakness Psych mental status grossly normal and thought process normal Skin General Skin Exam: Negative for jaundice or pallor MDM MDM MDM Narrative Medical decision making narrative: Patient valuated for vomiting and foreign body sensation after eating chicken. Concern for esophageal food impaction. Differential also includes esophagitis, gastritis and globus hystericus. Is otherwise asymptomatic no sudden onset after eating low suspicion for bowel obstruction. Patient is given IV glucagon and Zofran will reevaluate. No improvement with this. I did try having him jump up and down with that diet Coke. He did vomit up a whole piece of broccoli but continues to have further symptoms of esophageal impaction and console not tolerate p.o. I spoke with GI on-call, Dr. Simmons, who states that due to OR/anesthesia staffing we will need to scope within the morning to relieve the impaction. Did try IV Ativan per recommendation of GI with no improvement either. Patient is on a maintenance fluids as he cannot take anything by mouth. At baseline labs obtained including CBC, INR and BMP. He does have a mild leukocytosis of 13.2 by suspect is reactive from vomiting. Hemoglobin mildly concentrated 16.8. INR is therapeutic at 2.0. Bicarb mildly low at 15.4 and all this is more consistent with dehydration. Again patient is getting IV fluids in the ER. His creatinine is normal. Patient signed out to oncoming physician pending endoscopy in the morning anticipate discharge homeafter that for removal of esophageal food impaction. Lab Data Attestation: I reviewed the patient's lab results. Labs: Laboratory Results - last 24 hr 11/20/24 00:29 WBC 13.2 H RBC 5.32 Hgb 16.8 H Hct 50.1 MCV 94.2 H MCH 31.6 MCHC 33.5 RDW Std Deviation 48.7 H RDW Coeff of Uyen 14.2 Plt Count 155 MPV 10.4 Immature Gran % (Auto) 0.300 Neut % (Auto) 83.7 H Lymph % (Auto) 12.2 L [place] % (Auto) 3.3 Eos % (Auto) 0.1 Baso % (Auto) 0.4 Absolute Neuts (auto) 11.1 H Absolute Lymphs (auto) 1.61 Nucleated RBC % 0 PT 22.7 H INR 2.0 Sodium 140 Potassium 4.6 Chloride 110 H Carbon Dioxide 15.4 L Anion Gap 15 BUN 15 Creatinine 0.83 Estim Creat Clear Calc 78.88 Est GFR (MDRD) Non-Af 88 BUN/Creatinine Ratio 17.4 Glucose 104 H Calcium 9.1 Management 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) Discharge Plan Triage Chief Complaint: Foreign Body ED Provider: Danielle Han Dx/Rx/DC Orders Clinical Impression: Esophageal obstruction due to food impaction, 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, Dehydration, mild Prescriptions: No Action lisinopril-hydrochlorothiazide 20-12.5 mg tablet 2 tab PO DAILY fluticasone propionate [Allergy Relief (fluticasone)] 50 mcg/actuation spray,suspension 1 spray INTRANASAL DAILY magnesium oxide 400 mg magnesium capsule 400 mg PO BID coenzyme Q10 200 mg capsule 400 mg PO DAILY multivitamin Tablet 2 tab PO DAILY ascorbic acid (vitamin C) 1,000 mg tablet 1 g PO DAILY saw palmetto 450 mg capsule 450 mg PO BID Patient Comments: supplement cyanocobalamin (vitamin B-12) 2,500 mcg lozenge 2,500 mcg SUBLINGUAL BID Patient Comments: supplement rosuvastatin [Crestor] 10 mg tablet 40 mg PO QHS warfarin 10 mg Tablet 10 mg PO DAILY potassium chloride 10 mEq capsule, extended release 10 meq PO BID aspirin 81 mg Tablet 81 mg PO DAILY famotidine 40 mg tablet 40 mg PO PRN PRN (Reason: GERD) Patient Comments: take 1 tablet by mouth once daily if needed oxycodone-acetaminophen 5-325 mg tablet 1 tab PO PRN PRN (Reason: Pain) Patient Comments: take 1 tablet by mouth every 4 hours if needed for pain for up to 7 days lorazepam 1 MG tablet 2 mg PO QHS PRN PRN (Reason: Insomnia) pantoprazole [Protonix] [address] for susp in packet 40 mg PO DAILY oxycodone-acetaminophen [Percocet] 5-325 mg tablet 1 tab PO Q8H PRN (Reason: pain) 3 Days Qty: 10 0RF clonidine HCl 0.1 mg tablet 0.1 - 0.2 mg PO TID PRN (Reason: SBP>165) Qty: 15 0RF Primary Care Provider: Teri Gruber NP Referrals: Zeny Lam LICENSED MENTAL HEALTH PROFESSIONAL, LICENSED MENTAL HEALTH PROFESSIONAL-C [Non-Staff -Ordering Privileges] - Print Language: Burkinan What to do if you have Problems For any increased pain, shortness of breath, bleeding, nausea or vomiting, chestpain, or any unexpected problems, contact your Primary Care Provider. Call [facility] ([phone]) or report tothe closest Emergency Room. Call 911 if necessary. 11/20/24 0118 Cosigner Signature (if applicable): CC: CHRISTAL Gruber ~ Signed [facility]08-12-2025 History of Present illness Narrative* Zeny Lam APRN.THEATRICAL AGENT - 11/15/2024 12:53 PM EDT SUBJECTIVE Alex Brooks is a 79 year [...] normal. His INR is 2.7. Recording using Zero9 software for draft documentation of the visit was discussed with the patient/authorized business representative; all questions welcomed and answered. Patient/authorized business representative agreed to proceed His medications were reviewed today and his list is now up to date. Medications Current Outpatient Medications Medication Sig oxyCODONE-acetaminophen (PERCOCET) 7.5-325 mg tablet Take 1 tablet by mouth every 6 hours as neededfor pain for up to 7 days. NIFEdipine [...] Endarterectomy - 06/10/2019 Colonic Polyp - 11/29/2018 Alf (Current) Use of Anticoagulants - 09/15/2018 Recurrent [...] heart catheterization with Dr. Mercedes to rule outany cardiac issues. - Will send a message [...] Stable. 4. 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) (I26.99) FDC (current) use of anticoagulants (Z79.01) INR is [...] from today's visit and in agreement with treatmentplan. Questions answered. Agrees to call the office [...] as well as compliance with taking medications. Age- appropriate health preventative measures were discussed. Return in about 3 months (around 02/15/2025) for Follow up on chronic conditions and medications.. Zeny Lam APRN-KAYLA [1] Social History Tobacco Use Smoking status: [...] per week Types: Marijuana [facility] Tele[facility] encounter Note * Telephone Encounter - Zeny Lam APRN.CNP - 10/28/2024 12:00 PM EDT Noted and agree, no call back needed. [facility]-25[facility] Miscellaneous Notes* Telephone Encounter - Zeny Lam APRN.CNP - 10/28/2024 12:00 PM EDT Noted and agree, no call back needed. * Telephone Encounter - Antoinette Meadows RN - 10/28/2024 11:45 AM EDT Last INR: INR 2.5 10/28/2024 Current dose [...] what Zeny wants done. documented [facility] Telephone encounter Note * Telephone Encounter - Antoinette Meadows RN - 10/28/2024 11:45 AM EDT Last INR: INR 2.5 10/28/2024 Current dose [...] if that is what Zeny wants done. [facility]07-23-[facility] Telephone encounter Note* Telephone Encounter - Emerald Hunt LPN - 10/26/2024 11:44 AM EDT Patient called. Verified name and date of . Patient wanted to let Shruti know he appreciates that Shruti called him and will see her and discuss plan at upcoming appointment in December. Emerald Hunt LPN [facility]07-23-2025 Miscellaneous Notes* Telephone Encounter - Emerald Hunt LPN - 10/26/2024 11:44 AM EDT Patient called. Verified name and date of . Patient wanted to let Shruti know he appreciates that Shruti called him and will see her and discuss plan at upcoming appointment in December. Emerald Hunt LPN documented in this [facility] Telephone encounter Note * Telephone Encounter - Celia Negrete LPN - 10/26/2024 8:55 AM EDT Left message to notify patient that medication was sent to his pharmacy. Celia Negrete LPN [facility]-23-2025 Miscellaneous Notes* Telephone Encounter - Celia Negrete LPN - 10/26/2024 8:55 AM EDT Left message to notify patient that medication was sent to his pharmacy. Celia Negrete LPN * Telephone Encounter - Zeny Lam APRN.KAYLA - 10/26/2024 8:14 AM EDT This has been sent in to the pharmacy. Zeny Lam APRN.KAYLA * Telephone Encounter - Alvin He RN - 10/26/2024 8:05 AM EDT Pt phoned to tell Zeny santos for responding so quickly. Pt asking if you can send new nefedipine Rx to [facility]. Reports he is almost out of 30 mg, and right now he can get the 60 mg Rx for $20, lowest perez ever. Pt would like to pick this up today. Pended. * Telephone Encounter - Zeny Lam APRN.CNP - 10/25/2024 3:04 PM EDT Please let him know okay to take the total of 60 mg of his nifedipine (2 tabs of the 30 mg dose ok), I updated the med list. Zeny Lam APRN.KAYLA * Telephone Encounter - Brandi Lambert LPN - 10/25/2024 12:59 PM EDT Pt calls to report his bp has [...] chart. Brandi Lambert LPN documented in this [facility] Telephone encounter Note * Telephone Encounter - Zeny Lam APRN.CNP - 10/26/2024 8:14 AM EDT This has been sent in to the pharmacy. Zeny Lam APRN.CNP [facility]07-23-20[facility] Telephone encounter Note* Telephone Encounter - Alvin He RN - 10/26/2024 8:05 AM EDT Pt phoned to tell Zeny florenceyumiko for responding so quickly. Pt asking if you can send new nefedipine Rx to [facility]. Reports he is almost out of 30 mg, and right now he can get the 60 mg Rx for $20, lowest perez ever. Pt would like to pick this up today. Pended. [facility]-22-20[facility] Telephone encounter Note* Telephone Encounter - Zeny Lam APRN.CNP - 10/25/2024 3:04 PM EDT Please let him know okay to take the total of 60 mg of his nifedipine (2 tabs of the 30 mg dose ok), I updated the med list. Zeny Lam APRN.CNP [facility]07-22-2025 Telephone encounter Note* Telephone Encounter - Brandi Lambert LPN - 10/25/2024 12:59 PM EDT Pt calls to report his bp has [...] updated in med chart. Brandi Lambert LPN [facility]-17[facility] History of Present illness Narrative* Mirlande Funez MD - 10/20/2024 1:30 PM EDT Images from the original note were not included. . [facility] [place] Note Patient name: Alex Brooks PCP: Zeny Lam APRN.THEATRICAL AGENT Referring Physician: same Consultation requested by Zeny Lam for an opinion regarding SOB. My final recommendations will be communicated back to the requesting physician by way of shared Medical record or letter to requesting physician via US mail. Recording using Zero9 software for draft documentation of the visit was discussed with the patient/authorized business representative; all questions welcomed and answered. Patient/authorized business representative agreed to proceed CC: intermittent SOB HPI: Alex Brooks 79 year old male former 20 pack year smoker, quitting in 1980 with PMH significant for h/o asthmatic bronchitis, PAD (carotid), HTN, BPH, GERD, neuropathy, HLD, recurrent PE onCoumadin, h/o [place]ever being referred for shortness of breath. Diagnosed with asthmatic bronchitis during his teenage years. He would have yearly bouts of bronchitis with wheezing, treated with al buterol but he did not require long-term controller inhaler therapy. He he was doing well until this past year. He denied any antecedent upper respiratory infection. Rich reports intermittent dyspneaand cough with mucus production for the past 4-5 months. He notes that the dyspnea is inconsistent,sometimes occurring with minimal exertion such as walking 50-75 feet to take out the garbage, and other times not present during activities like grocery shopping. He denies wheezing but has noticed achange in his voice. He was using Flonase regularly but this made no difference in his vocal changes. The cough is infrequent, but if present he can expectorate clear mucus not particularly tenaciousor thick. He has tried Percocet for dyspnea, [...] to knees, as of 2008 --- in [place], neurologist thought related to alcohol; Has had EMG/NCS ?Related to sugar? -- see fasting glucose 2008; [...] tablet by mouth every 6 hours as neededfor pain for up to 7 days. cloNIDine [...] 7.0 times per week Types: Marijuana Retired [employer] Pets: Cat FAMILY HISTORY Problem Relation [...] - See #1 Mirlande Funez MD [facility] [place] documented in [facility] Telephone encounter Note * Telephone Encounter - Mirlande Maria MA - 10/17/2024 5:01 PM EDT Spoke to patient and he advised can do 30 mg 1.5 tablets. Did recheck his blood pressure right before phone call and was 126/80 but will watch BP closely to make sure does not drop low. Patient does not need rx resent just updated to med list. Mirlande Maria MA [facility]07-14-2025 Miscellaneous Notes* Telephone Encounter - Mirlande Maria MA - 10/17/2024 5:01 PM EDT Spoke to patient and he advised can do 30 mg 1.5 tablets. Did recheck his blood pressure right before phone call and was 126/80 but will watch BP closely to make sure does not drop low. Patient does not need rx resent just updated to med list. Mirlande Maria MA * Telephone Encounter - Zeny Lam APRN.CNP - 10/17/2024 4:45 PM EDT For nifedipine there is no 40 mg dose, we can do either 1 tablet of the 30 mg OR 1 tablet of the 60mg dose OR 1.5 tablets of the 30 mg dose to equal 45 mg if he feels he can split the tablet withoutmuch issue. Please see what he wants to do and let me know. * Telephone Encounter - Julieth Castle RN - 10/17/2024 12:51 PM EDT patient is calling in stating that he [...] so patient would like rx [facility] [place]. Please review and advise (neither medications are on patients current medication list) Patient will need called back with information. documented in this encounterK[facility]2025 Telephone encounter Note * Telephone Encounter - Zeny Lam APRN.KAYLA - 10/17/2024 4:45 PM EDT For nifedipine there is no 40 mg dose, we can do either 1 tablet of the 30 mg OR 1 tablet of the 60mg dose OR 1.5 tablets of the 30 mg dose to equal 45 mg if he feels he can split the tablet withoutmuch issue. Please see what he wants to do and let me know. [facility] Telephone encounter Note* Telephone Encounter - Julieth Castle RN - 10/17/2024 12:51 PM EDT patient is calling in stating that he [...] so patient would like rx sent to [facility] [place]. Please review and advise (neither medications are on patients current medication list) Patient will need called back with information. [facility]07-11-2025 Telephone encounter Note* Telephone Encounter - Kristina Youssef LPN - 10/14/2024 1:12 PM EDT Patient notified of results and provider's instructions. Patient verbalizes understanding. Kristina Youssef LPN [facility]07-11-2025 Miscellaneous Notes* Telephone Encounter - Kristina Youssef LPN - 10/14/2024 1:12 PM EDT Patient notified of results and provider's instructions. Patient verbalizes understanding. Kristina Youssef LPN * Telephone Encounter - Zeny Lam APRN.CNP - 10/14/2024 12:59 PM EDT Okay, noted, continue with current dose of coumadin and ok to repeat INR for when he has scheduled. * Telephone Encounter - Antoinette Meadows RN - 10/14/2024 12:13 PM EDT Last INR: INR Home CoaguChek 2.6 10/14/2024 [...] the lower side he had a different engineer byproduct and she didn't fill the tube all the way to the top (he thought that might contributeto the lower reading). Patient already scheduled for 10/28/2024 for next INR. Antoinette Meadows RN documented in this [facility]-2025 Telephone encounter Note * Telephone Encounter - Zeny Lam APRN.CNP - 10/14/2024 12:59 PM EDT Okay, noted, continue with current dose of coumadin and ok to repeat INR for when he has scheduled. [facility]07-11-2025 Telephone encounter Note* Telephone Encounter - Antoinette Meadows RN - 10/14/2024 12:13 PM EDT Last INR: INR Home Meet 2.6 10/14/2024 Current dose of coumadin is: [...] the lower side he had a different engineer byproduct and she didn't fill the tube all the way to the top (he thought that might contributeto the lower reading). Patient already scheduled for 10/28/2024 for next INR. Antoinette Meadows RN [facility]07-08-2025 Telephone encounter Note* Telephone Encounter - Kari Briones LPN - 10/11/2024 2:01 PM EDT Patient notified of below recommendation, verbalized understanding. Kari Briones LPN [facility]-08-2025 Miscellaneous Notes* Telephone Encounter - Kari Briones LPN - 10/11/2024 2:01 PM EDT Patient notified of below recommendation, verbalized understanding. Kari Briones LPN * Telephone Encounter - Zeny Lam APRN.CNP - 10/11/2024 11:23 AM EDT My concern is that it took a while to get his bp back to being controlled. I'm okay with him tryingthe switch but I would monitor blood pressure closely and wait to make any further additional changes until seen with pulmonary. * Telephone Encounter - Cyndy Whelan RN - 10/10/2024 6:14 PM EDT Pt called in to see if provider had looked at provider had replied to his message yet. I let him know that she hadn't, but I would send her a message about it. Pt states he feels a little bit better since he has stopped taking it, but knows it stays in your sytem for a while. Pt reports his BP thismorning was 123/77 HR 71 and at 430 pm BP was 123/74 HR 71. Pt knows he has the PRN Clonidine to take if his SBP is greater than 150. Please call Pt back and advise. Cyndy Whelan RN * Telephone Encounter - Antoinette Meadows RN - 10/10/2024 10:47 AM EDT Patient calls to check on status of [...] advise, Antoinette Meadows RN documented in this [facility] Telephone encounter Note * Telephone Encounter - Zeny Lam APRN.KAYLA - 10/11/2024 11:23 AM EDT My concern is that it took a while to get his bp back to being controlled. I'm okay with him tryingthe switch but I would monitor blood pressure closely and wait to make any further additional changes until seen with pulmonary. [facility]-07-[facility] Telephone encounter Note* Telephone Encounter - Cyndy Whelan RN - 10/10/2024 6:14 PM EDT Pt called in to see if provider had looked at provider had replied to his message yet. I let him know that she hadn't, but I would send her a message about it. Pt states he feels a little bit better since he has stopped taking it, but knows it stays in your sytem for a while. Pt reports his BP thismorning was 123/77 HR 71 and at 430 pm BP was 123/74 HR 71. Pt knows he has the PRN Clonidine to take if his SBP is greater than 150. Please call Pt back and advise. Cyndy Whelan RN [facility]07-07-20[facility] Telephone encounter Note* Telephone Encounter - Antoinette Meadows RN - 10/10/2024 10:53 AM EDT See TE. Patient aware closing MC message. Antoinette Meadows RN [facility]07-07-2025 Miscellaneous Notes* Telephone Encounter - Antoinette Meadows RN - 10/10/2024 10:53 AM EDT See TE. Patient aware closing MC message. Antoinette Meadows RN documented in this encounterK[facility]-2025 Telephone encounter Note * Telephone Encounter - Antoinette Meadows RN - 10/10/2024 10:52 AM EDT See TE 10/10/2024. Patient aware closing MC message. Antoinette Meadows RN [facility]07-07-2025 Miscellaneous Notes* Telephone Encounter - Antoinette Meadows RN - 10/10/2024 10:52 AM EDT See TE 10/10/2024. Patient aware closing MC message. Antoinette Meadows RN documented in this encounterK[facility]-20[facility] Telephone encounter Note * Telephone Encounter - Antoinette Meadows RN - 10/10/2024 10:47 AM EDT Patient calls to check on status of [...] it about three or four months ago. Rihc Looked up Nifedipine as well. It can cause shortness of breath but not as a serious side effect like Olmesartan. It was listed as a common side effect. Sorry for being a pain in the ass but this shortness of breath issue has been going on for too long. Please review and advise, Antoinette Meadows RN [facility]07-02-2025 Telephone encounter Note* Telephone Encounter - Cyndy Whelan RN - 10/05/2024 4:55 PM EDT Pt called and is notified of providers results and instructions. Pt voices understanding. Updated Anticoag tracker. Changed Pt's INR appointment. Cyndy Whelan RN [facility]07-02-2025 Miscellaneous Notes* Telephone Encounter - Cyndy Whelan RN - 10/05/2024 4:55 PM EDT Pt called and is notified of providers results and instructions. Pt voices understanding. Updated Anticoag tracker. Changed Pt's INR appointment. Cyndy Whelan RN * Telephone Encounter - Zeny Lam APRN.CNP - 10/05/2024 3:54 PM EDT Since it is his first low then it is okay to continue current coumadin dosing and then repeat INR in 1 week. Thanks. * Telephone Encounter - Tammie Munguia RN - 10/05/2024 11:11 AM EDT Last INR: INR Home CoaguChek 1.8 10/05/2024 [...] scheduled for next Thursday10/12/2024 because patient states thatPCP will want him to recheck in one week. Please review and advise, Tammie Munguia RN documented in this encounterK[facility]-2025 Telephone encounter Note * Telephone Encounter - Zeny Lam APRN.CNP - 10/05/2024 3:54 PM EDT Since it is his first low then it is okay to continue current coumadin dosing and then repeat INR in 1 week. Thanks. [facility]-02-20[facility] Telephone encounter Note* Telephone Encounter - Tammie Munguia RN - 10/05/2024 11:11 AM EDT Last INR: INR Home CoaguChek 1.8 10/05/2024 [...] scheduled for next Thursday10/12/2024 because patient states thatPCP will want him to recheck in one week. Please review and advise, Tammie Munguia RN [facility]-20-20[facility] Telephone encounter Note* Telephone Encounter - Haydee Lee LPN - 09/23/2024 5:11 PM EDT Patient notified of providers message and verbalized understanding [facility]-20-2025 Miscellaneous Notes* Telephone Encounter - Haydee Lee LPN - 09/23/2024 5:11 PM EDT Patient notified of providers message and verbalized understanding * Telephone Encounter - Mani Edwards MD - 09/23/2024 4:48 PM EDT No change Recheck in 2 weeks Noted in initial message patient knew that would stay on same dose and recheck in 2 weeks * Telephone Encounter - Alvin He RN - 09/23/2024 2:14 PM EDT Pt checking on provider's recommendation. * Telephone Encounter - Tammie Munguia RN - 09/22/2024 12:08 PM EDT Patient calls to see the status of this request. Please review and advise, Tammie Munguia RN * Telephone Encounter - Alvin He RN - 09/21/2024 11:25 AM EDT Last INR: INR Home CoaguChek 2.9 09/21/2024 Current dose of coumadin is: 7.5 mg alternates with 5 mg every other day. Last date of dose change: 09/07/24. Previous INR (date and result): 09/07/24, 3.0 Additional Clinical Information or narrative: yes: No unusual bleeding or bruising, no recent AB's,no diet changes, no alcohol, no missed doses. Pt states he will continue current dose, and knows provider will tell him to check INR in 2 weeks, and we scheduled the appt for INR lab at the [facility] lab on MR on 10/05/24. documented in this encounterK[facility] Telephone encounter Note * Telephone Encounter - Mani Edwards MD - 09/23/2024 4:48 PM EDT No change Recheck in 2 weeks Noted in initial message patient knew that would stay on same dose and recheck in 2 weeks [facility] Work Phone: [phone] Telephone encounter Note* Telephone Encounter - Alvin He RN - 09/23/2024 2:14 PM EDT Pt checking on provider's recommendation. [facility]06-19-20[facility] Telephone encounter Note* Telephone Encounter - Tammie Munguia RN - 09/22/2024 12:08 PM EDT Patient calls to see the status of this request. Please review and advise, Tammie Munguia RN [facility]06-18-2025 Telephone encounter Note* Telephone Encounter - Gabby Rm LPN - 09/21/2024 11:46 AM EDT Duplicate entry [facility]06-18-2025 Miscellaneous Notes* Telephone Encounter - Gabby Rm LPN - 09/21/2024 11:46 AM EDT Duplicate entry * Telephone Encounter - Gabby Rm LPN - 09/21/2024 11:11 AM EDT Last INR: INR Home CoaguChek 2.9 09/21/2024 Current dose of coumadin is: 5 mg alternating with 7.5 mg . Last date of dose change: 09/07/24. Previous INR (date and result): 09/07/24 3.0 Additional Clinical Information or narrative: no documented in this encounterK[facility]06-18-2025 Telephone encounter Note * Telephone Encounter - Alvin He RN - 09/21/2024 11:25 AM EDT Last INR: INR Home CoaguChek 2.9 09/21/2024 Current dose of coumadin is: 7.5 mg alternates with 5 mg every other day. Last date of dose change: 09/07/24. Previous INR (date and result): 09/07/24, 3.0 Additional Clinical Information or narrative: yes: No unusual bleeding or bruising, no recent AB's,no diet changes, no alcohol, no missed doses. Pt states he will continue current dose, and knows provider will tell him to check INR in 2 weeks, and we scheduled the appt for INR lab at the [facility] lab on [place] on 10/05/24. [facility] Telephone encounter Note* Telephone Encounter - Gabby Rm LPN - 09/21/2024 11:11 AM EDT Last INR: INR Home CoaguChek 2.9 09/21/2024 Current dose of coumadin is: 5 mg alternating with 7.5 mg . Last date of dose change: 09/07/24. Previous INR (date and result): 09/07/24 3.0 Additional Clinical Information or narrative: no [facility] Telephone encounter Note* Telephone Encounter - Cyndy Whelan RN - 09/19/2024 3:42 PM EDT Pt called and is notified of providers message and instructions. Pt voices understanding. Cyndy Whelan RN [facility]06-16-2025 Miscellaneous Notes* Telephone Encounter - Cyndy Whelan RN - 09/19/2024 3:42 PM EDT Pt called and is notified of providers message and instructions. Pt voices understanding. Cyndy Whelan RN * Telephone Encounter - Zeny Lam APRN.CNP - 09/19/2024 12:57 PM EDT Please let him know I ordered labs and he will also be due for a urine test so I ordered that too. * Telephone Encounter - Graciela Parker RN - 09/14/2024 11:58 AM EDT Pt has OV appt with Lauryn Lam CNP on 11/15/24. He is asking if provider would place any lab orders for him to complete prior to this appt. Please call patient with an update. Graciela Parker RN documented in this encounterK[facility]06-16-2025 Telephone encounter Note * Telephone Encounter - Zeny Lam APRN.CNP - 09/19/2024 12:57 PM EDT Please let him know I ordered labs and he will also be due for a urine test so I ordered that too. [facility]-12[facility] Telephone encounter Note* Telephone Encounter - Edgar Landa LPN - 09/15/2024 4:14 PM EDT Pt. notified will discuss further imaging after appt. Edgar Landa LPN [facility]06-12[facility] Miscellaneous Notes* Telephone Encounter - Edgar Landa LPN - 09/15/2024 4:14 PM EDT Pt. notified will discuss further imaging after appt. Edgar Landa LPN * Telephone Encounter - Edgar Landa LPN - 09/14/2024 12:05 PM EDT Patient was ordered CT Chest by PCP but would like to postpone until after his consult appointment on 10/20. His last CXR was August 2023. Asking if imaging is indicated prior to appt? Edgar Landa LPN documented in this encounterK[facility]06-11-2025 Telephone encounter Note * Telephone Encounter - Edgar Landa LPN - 09/14/2024 12:05 PM EDT Patient was ordered CT Chest by PCP but would like to postpone until after his consult appointment on 10/20. His last CXR was August 2023. Asking if imaging is indicated prior to appt? Edgar Landa LPN [facility]06-11-[facility] Telephone encounter Note* Telephone Encounter - Graciela Parker RN - 09/14/2024 11:58 AM EDT Pt has OV appt with Lauryn Lam CNP on 11/15/24. He is asking if provider would place any lab orders for him to complete prior to this appt. Please call patient with an update. Graciela Parker RN [facility]06-09-20[facility] Telephone encounter Note* Telephone Encounter - Gabby Rm LPN - 09/12/2024 2:19 PM EDT PATIENT NOTIFIED OF SAME. Will call back to schedule after verifing Dr. Funez is in network. [facility]06-09[facility] Miscellaneous Notes* Telephone Encounter - Gabby Rm LPN - 09/12/2024 2:19 PM EDT PATIENT NOTIFIED OF SAME. Will call back to schedule after verifing Dr. Funez is in network. * Telephone Encounter - Zeny Lam APRN.CNP - 09/12/2024 1:45 PM EDT Please let him know that I think it might be more beneficial at this point for him to follow up with seeing pulmonary (already has a consult placed) rather than repeat the PFTs. * Telephone Encounter - Tammie Munguia RN - 09/12/2024 11:59 AM EDT Patient calls and is asking if he [...] advise, Tammie Munguia RN documented in this encounterK[facility]06-09-2025 Telephone encounter Note * Telephone Encounter - Zeny Lam APRN.CNP - 09/12/2024 1:45 PM EDT Please let him know that I think it might be more beneficial at this point for him to follow up with seeing pulmonary (already has a consult placed) rather than repeat the PFTs. [facility] Telephone encounter Note* Telephone Encounter - Tammie Munguia RN - 09/12/2024 11:59 AM EDT Patient calls and is asking if he [...] Please review and advise, Tammie Munguia RN [facility]06-06-[facility] Telephone encounter Note* Telephone Encounter - Zeny Lam APRN.CNP - 09/09/2024 7:27 AM EDT PDMP website checked and validated. All prescriptions have been APPROPRIATELY filled. No suspiciousactivity was identified. 09/09/2024 by Zeny Lam APRN.CNP [facility]-06-20[facility] Miscellaneous Notes* Telephone Encounter - Zeny Lam APRN.CNP - 09/09/2024 7:27 AM EDT PDMP website checked and validated. All prescriptions have been APPROPRIATELY filled. No suspiciousactivity was identified. 09/09/2024 by Zeny Lam APRN.KAYLA * Telephone Encounter - Tala Torres LPN - 09/08/2024 11:26 AM EDT The patient has been identified by name [...] to 180 days. Patient is changing to [facility] since [facility] is closing October 02. Tala Torres LPN September 08, 2024 11:27 AM documented in this encounterK[facility]06-05-2025 Telephone encounter Note * Telephone Encounter - Tala Torres LPN - 09/08/2024 11:26 AM EDT The patient has been identified by name [...] to 180 days. Patient is changing to [facility] since [facility] is closing October 02. Tala Torres LPN September 08, 2024 11:27 AM [facility]06-04-20[facility] Telephone encounter Note* Telephone Encounter - Gabby Rm LPN - 09/07/2024 10:45 AM EDT PATIENT NOTIFIED OF SAME. Tracker updated. [facility]06-04-2025 Miscellaneous Notes* Telephone Encounter - Gabby Rm LPN - 09/07/2024 10:45 AM EDT PATIENT NOTIFIED OF SAME. Tracker updated. * Telephone Encounter - Zeny Lam APRN.CNP - 09/07/2024 10:42 AM EDT Okay to do the next INR on 09/21/2024, I would recommend he stop taking the 10 mg dose and stick with 5 mg alternating with 7.5 mg since last 2 INRs have been a little higher. * Telephone Encounter - Graciela Parker RN - 09/07/2024 10:32 AM EDT Last INR: INR Home CoaguChek 3.0 09/07/2024 [...] with any other orders. Graciela Parker RN documented in this encounterK[facility]06-04-2025 Telephone encounter Note * Telephone Encounter - Zeny Lam APRN.CNP - 09/07/2024 10:42 AM EDT Okay to do the next INR on 09/21/2024, I would recommend he stop taking the 10 mg dose and stick with 5 mg alternating with 7.5 mg since last 2 INRs have been a little higher. [facility]-04[facility] Telephone encounter Note* Telephone Encounter - Graciela Parker RN - 09/07/2024 10:32 AM EDT Last INR: INR Home CoaguChek 3.0 09/07/2024 [...] with any other orders. Graciela Parker RN [facility]06-02-2025 Telephone encounter Note* Telephone Encounter - Zeny Lam APRN.CNP - 09/05/2024 2:53 PM EDT PDMP website checked and validated. All prescriptions have been APPROPRIATELY filled. No suspiciousactivity was identified. 09/05/2024 by Zeny Lam APRN.CNP [facility]06-02-2025 Miscellaneous Notes* Telephone Encounter - Zeny Lam APRN.CNP - 09/05/2024 2:53 PM EDT PDMP website checked and validated. All prescriptions have been APPROPRIATELY filled. No suspiciousactivity was identified. 09/05/2024 by Zeny Lam APRN.KAYLA * Telephone Encounter - Gabby Rm LPN - 09/05/2024 2:38 PM EDT Prescription Refill Information The patient has been [...] 05, 2024 2:38 PM documented in this encounterK[facility]06-02-2025 Telephone encounter Note * Telephone Encounter - Gabby Rm LPN - 09/05/2024 2:38 PM EDT Prescription Refill Information The patient has been [...] Rm LPN September 05, 2024 2:38 PM [facility]-02-20[facility] Telephone encounter Note* Telephone Encounter - Tammie Munguia RN - 09/05/2024 12:53 PM EDT The patient has been identified by name [...] with taking 7.5 mg and 5 mg, planfor max dose of 10 mg per day at this time. rosuvastatin (CRESTOR) 40 mg tablet 90 tablet 3 Sig: Take 1 tablet by mouth once daily. famotidine (PEPCID) 40 mg tablet 90 tablet 1 Sig: Take 1 tablet by mouth once daily as needed. Tammie Munguia RN September 05, 2024 12:53 PM [facility]06-02-2025 Miscellaneous Notes* Telephone Encounter - Tammie Munguia RN - 09/05/2024 12:53 PM EDT The patient has been identified by name [...] with taking 7.5 mg and 5 mg, planfor max dose of 10 mg per day at this time. rosuvastatin (CRESTOR) 40 mg tablet 90 tablet 3 Sig: Take 1 tablet by mouth once daily. famotidine (PEPCID) 40 mg tablet 90 tablet 1 Sig: Take 1 tablet by mouth once daily as needed. Tammie Munguia RN September 05, 2024 12:53 PM documented in this encounterK[facility]05-19-2025 Telephone encounter Note * Telephone Encounter - Zeny Lam APRN.CNP - 08/22/2024 9:34 AM EDT Kamlesh noted, if he wants to wait that is okay. [facility]05-19-2025 Miscellaneous Notes* Telephone Encounter - Zeny Lam APRN.CNP - 08/22/2024 9:34 AM EDT Okay noted, if he wants to wait that is okay. * Telephone Encounter - Alvin He RN - 08/19/2024 1:05 PM EDT Pt phoned back to tell Zeny shabazz message below. He spoke with [employer] and figured it out. Pt states he wants to wait a few weeks to get the CT done, unless you think he should do it sooner.States he wants to see if there's another cause, possibly allergies. * Telephone Encounter - Alvin He RN - 08/19/2024 10:48 AM EDT Patient phoned to ask Zeny, does the CT chest W IVCON use high or low dose. Pt states you can replyto him via MC or telephone. documented in this encounterK[facility]05-16-2025 Telephone encounter Note * Telephone Encounter - Alvin He RN - 08/19/2024 1:05 PM EDT Pt phoned back to tell Zeny disregard message below. He spoke with [employer] and figured it out. Pt states he wants to wait a few weeks to get the CT done, unless you think he should do it sooner.States he wants to see if there's another cause, possibly allergies. [facility]05-16-2025 Telephone encounter Note* Telephone Encounter - Alvin He RN - 08/19/2024 10:48 AM EDT Patient phoned to ask Zeny, does the CT chest W IVCON use high or low dose. Pt states you can replyto him via MC or telephone. [facility]05-12[facility]2025 History of Present illness Narrative* Zeny Lam APRN.KAYLA - 08/15/2024 1:47 PM EDT Images from the original note [...] care team: Patient Care Team: Zeny Lam APRN.KAYLA as PCP - General (Internal Medicine) Mckinley Jaramillo DO as Consulting (Hematology/Oncology) Mj Dos Santos MD as Crossbar Switch Adjuster (Cardiology) Medical/Family history review Reviewed and updated [...] is on Coumadin and notes that the wire setter was aware of this. During the visit, the wire setter attempted to trim a difficult toenail on [...] also mentions a recent conversation with a wire setter who advised him to use gauze. Rich also reports episodes of shortness of breath, particularly noticeable after returning home from outings. He recalls a similar experience during a previous episode of [place] Fever, which involvedmultiple diagnostic tests, including a bronchoscopy. He mentions [...] increasing difficulty with short-term recall. He mentions aprevious brain CT scan in February, which was [...] a bottle of wine daily to one ortwo bottles per month. He also mentions taking [...] tablet by mouth every 6 hours as neededfor pain for up to 7 days. No [...] Endarterectomy - 06/10/2019 Colonic Polyp - 11/29/2018 Health Physicist (Current) Use of Anticoagulants - 09/15/2018 Recurrent [...] from today's visit and in agreement with treatmentplan. Questions answered. Agrees to call the office [...] as well as compliance with taking medications. Age- appropriate health preventative measures were discussed. Return in about 3 months (around 11/15/2024) for Follow up on chronic conditions and medications.. MICHI Navarro documented in this encounterK[facility]05-12-2025 Instructions* Patient Instructions* Zeny Lam APRN.CNP - 08/15/2024 1:47 PM [...] review all the medicines you take, even [id number] medicines. As you get older, the way medicines work in your body can change. Some medicines, or combinations of medicines, can make you sleepy or dizzy andcan cause you to fall. 3. Have your [...] have certain medical conditions. documented in this encounterK[facility]05-08-2025 NoteDate of Procedure 08/11/2024. Security Architect Information Insurance Advisor: Patience Gonzales Start time: 9:48 AM. Stop time: 9:52 AM. OCT Macula Interpretation Right Eye Findings include Epiretinal membrane, RPE Irregularity, Vitelliform lesion; Negative for Intraretinal fluid. Left Eye Abnormal foveal contour. Findings include Negative for Intraretinal fluid, Subretinal fluid. Interval Change Right Eye Worse. Left Eye Stable.[id number] History of Present illness Narrative* Kvng Magaña MD - 08/11/2024 11:07 AM EDT This is a 78 year old male [...] others. I have seen and examined Alex Suad Brooks. I have discussed the caseand the management of this patient's care with the Resident/Fellow, if applicable. I also have reviewed and agree with the assessment and plan as stated above and agree with all of its relevant components. documented in this encounterK[facility]05-07-2025 Telephone encounter Note * Telephone Encounter - Gabby Rm LPN - 08/10/2024 4:04 PM EDT PATIENT NOTIFIED OF SAME. [facility]05-07-2025 Miscellaneous Notes* Telephone Encounter - Gabby Rm LPN - 08/10/2024 4:04 PM EDT PATIENT NOTIFIED OF SAME. * Telephone Encounter - Zeny Lam APRN.CNP - 08/10/2024 12:45 PM EDT Noted and agree, continue current dose and repeat INR as planned. * Telephone Encounter - Alvin He RN - 08/10/2024 12:24 PM EDT Last INR: INR Home CoaguChek 2.9 08/10/2024 [...] 08/24/24 at 11 am. documented in this encounterK[facility]05-07-2025 Telephone encounter Note * Telephone Encounter - Zeny Lam APRN.CNP - 08/10/2024 12:45 PM EDT Noted and agree, continue current dose and repeat INR as planned. [facility]-07-2025 Telephone encounter Note* Telephone Encounter - Alvin He RN - 08/10/2024 12:24 PM EDT Last INR: INR Home CoaguChek 2.9 08/10/2024 [...] recheck INR on 08/24/24 at 11 am. [facility]05-07-2025 Progress note* Result Encounter Note - Zeny Lam APRN.CNP - 08/10/2024 12:08 PM EDT Plan to go over result at up coming follow up appointment. [facility]05-07[facility]2025 Miscellaneous Notes* Result Encounter Note - Zeny Lam APRN.CNP - 08/10/2024 12:08 PM EDT Plan to go over result at up coming follow up appointment. documented in this encounterKettering [facility]05-07-2025 NoteHNO ID: [id number] Author: WALT YANG R Ac Service: ? Author Type: Diplomat of Acupuncture Type: Progress Notes Filed: 08/10/2024 09:28 Note Text: Alex Brooks a 78 year [...] reducing alcohol intake. He was living in [facility] since he was born and moved to [place] for job-related which he regret as business environment and living was not the same. About 10 year ago, he moved to [place] and that was when he started experiencing exacerbation of all the condition. 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 Patient agrees that e (more content not included)...[id number] History of Present illness Narrative* Walt Yang R Ac - 08/10/2024 9:24 AM EDT Alex borjas 78 year old male presents to the acupuncture clinic on 08/10/24 for a follow upvisit. Patient identity confirmed by name and : [...] an alcohol pad to swab his leg skin.Dryness and muscle atrophy in lower legs especially. [...] reducing alcohol intake. He was living in [facility] since he was born and moved to [place] for job-related which he regret as business environmentand living was not the same. About 10 year ago, he moved to [place] and that was when he started experiencing exacerbation of all the condition. 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 documented in this encounterK[facility]05-05-2025 History of Present illness Narrative* Sunny Mercedes MD - 08/08/2024 1:00 PM EDT Images from the original note were not included. [facility]OLOGY Cardiology ([facility]) [address] [id number] OUTPATIENT VISIT DATE 08/08/2024 PRIMARY CARE PHYSICIAN: Zeny Lam [address] [place] [address] HISTORY OF PRESENT ILLNESS: Mr. Brooks is [...] to knees, as of 2008 --- in [place], neurologist thought related to alcohol; Has had EMG/NCS ?Related to sugar? -- see fasting glucose 2008; [...] Once exam is complete flush line and de-accessaccording to line specific nursing protocol in the [...] tablet by mouth every 6 hours as neededfor pain for up to 7 days. REVIEW [...] interpretation criteria are used as recommended by Intersocietal Accreditation Commission. When compared with the prior [...] disease, prior significant smoking history who presents tothe office for follow-up. PLAN AND RECOMMENDATIONS: 1. [...] Coumadin Sunny Mercedes MD documented in this encounterK[facility]05-03-2025 Telephone encounter Note * Telephone Encounter - Tonie Mai RN - 08/06/2024 4:28 PM EDT Patient calling regarding bleeding after toe nail trim on 07/28/24 . Conferenced to Main Walker gang drill press operator, Анна, to speak with provider patient information coordinator for Podiatry. [facility]05-03-2025 Miscellaneous Notes* Telephone Encounter - Tonie Mai RN - 08/06/2024 4:28 PM EDT Patient calling regarding bleeding after toe nail trim on 07/28/24 . Conferenced to Main Walker gang drill press operator, Анна, to speak with provider patient information coordinator for Podiatry. documented in this encounterKet[facility]05-01-2025 Procedure note* Mariana Barbosa RRT - 08/04/2024 12:34 PM EDTAssociated Order(s): NITRIC OXIDE, EXHALED RESPIRATORY THERAPY ORAL EXHALED [...] DATE: August 04, 2024 TIME: 12:34 PM [facility]05-01-2025 Procedure note* Mariana Barbosa RRT - 08/04/2024 12:34 PM EDTAssociated Order(s): NITRIC OXIDE, EXHALED RESPIRATORY THERAPY ORAL EXHALED [...] 2024 TIME: 12:34 PM documented in this encounterKet[facility]04-23-2025 Telephone encounter Note * Telephone Encounter - Gabby Rm LPN - 07/27/2024 1:57 PM EDT PATIENT NOTIFIED OF SAME. [facility]04-23-2025 Miscellaneous Notes* Telephone Encounter - Gabby Rm LPN - 07/27/2024 1:57 PM EDT PATIENT NOTIFIED OF SAME. * Telephone Encounter - Zeny Lam APRN.CNP - 07/27/2024 1:02 PM EDT Noted and okay to continue current dose and check INR as he plans in 2 weeks. * Telephone Encounter - Alvin He RN - 07/27/2024 12:57 PM EDT Last INR: INR Home CoaguChek 2.5 07/27/2024 Current dose of coumadin is: 7.5 mg alternate with 5 mg every other day, 10 mg every other Thursday. Last date of dose change: 05-18-24. Previous INR (date and result): 07/13/24, 2.3 Additional Clinical Information or narrative: yes: No diet changes, No wine, no unusual bleeding orbruising, no change in medication, no recent AB. Patient scheduled appt with lab to recheck INR in 2 weeks on 08/10/24 documented in this encounterKet[facility]04-23-2025 Telephone encounter Note * Telephone Encounter - Zeny Lam APRN.CNP - 07/27/2024 1:02 PM EDT Noted and okay to continue current dose and check INR as he plans in 2 weeks. [facility]04-23-2025 Telephone encounter Note* Telephone Encounter - Alvin He RN - 07/27/2024 12:57 PM EDT Last INR: INR Home CoaguChek 2.5 07/27/2024 Current dose of coumadin is: 7.5 mg alternate with 5 mg every other day, 10 mg every other Thursday. Last date of dose change: 05-18-24. Previous INR (date and result): 07/13/24, 2.3 Additional Clinical Information or narrative: yes: No diet changes, No wine, no unusual bleeding orbruising, no change in medication, no recent AB. Patient scheduled appt with lab to recheck INR in 2 weeks on 08/10/24 [facility]04-[facility]25 NoteHNO ID: [id number] Author: WALT YANG R Ac Service: ? [...] reducing alcohol intake. He was living in [facility] since he was born and moved to [place] for job-related which he regret as business environment and living was not the same. About 10 year ago, he moved to [place] and that was when he started experiencing exacerbation of all the condition. 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 Patient agrees that either: 1. A diagnostic exam has been performed by a physician or chiroprac (more content not included)...[id number] History of Present illness Narrative* Walt Yang R Ac - 07/26/2024 2:28 PM EDT Alex A Rinfret a 78 year old male presents to the acupuncture clinic on 07/26/24 for a follow upvisit. Patient identity confirmed by name and : [...] reducing alcohol intake. He was living in [facility] since he was born and moved to [place] for job-related which he regret as business environmentand living was not the same. About 10 year ago, he moved to [place] and that was when he started experiencing exacerbation of all the condition. 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 documented in this encounterK[facility]04-21-2025 History of Present illness Narrative* Zeny Lam APRN.THEATRICAL AGENT - 07/25/2024 11:16 AM EDT SUBJECTIVE Alex Brooks is a 78 year [...] resolved. Denies swelling in lower ext or associatedchest pain with his shortness of breath. His [...] tablet by mouth every 6 hours as neededfor pain for up to 7 days. No [...] Endarterectomy - 06/10/2019 Colonic Polyp - 11/29/2018 Health Physicist (Current) Use of Anticoagulants - 09/15/2018 Recurrent [...] student for the entire treatment session as needed.All documentation was reviewed and agreed upon by [...] from today's visit and in agreement with treatmentplan. Questions answered. Agrees to call the office [...] as well as compliance with taking medications. Age- appropriate health preventative measures were discussed. . Return if symptoms worsen or fail to improve, for Keep next scheduled appointment.. Zeny Lam APRN-KAYLA documented in this encounterK[facility]04-14-2025 Telephone encounter Note * Telephone Encounter - Zeny Lam APRN.CNP - 07/18/2024 3:01 PM EDT See my chart message. [facility]04-14-2025 Miscellaneous Notes* Telephone Encounter - Zeny Lam APRN.CNP - 07/18/2024 3:01 PM EDT See my chart message. * Telephone Encounter - Tala Torres LPN - 07/18/2024 9:21 AM EDT Patient calling back he has appt in [place] on 07/26 so cancelled appt with Zeny and made another onefor 07/25 at 1120 am. Patient is more concerned with side effects of Nifedipine causing his shortness of breath. Patient asking to be able to stop taking the medication to see if that clears his shortness of breath? Please advise * Telephone Encounter - Ramila Anand RN - 07/18/2024 8:22 AM EDT 1) Pt calling in to update Zeny [...] 140 pm to discuss stress test results. [facility] notifying pt to contact us if that does not work. 3) Pt wanting to let Zeny Lam know that he had to hold his Nifedipine for 24 hours prior to hisstress test appt. He states he had to look the med up and when he did, he noticed that side effectsfrom the Nifedipine can be SOB and muscle cramps which he has had both. He states that he feels hisSOB occurred about 1 week after initially starting the Nifedipine (which was in January 2024). Pt wants to hold his Nifedipine until he has his followup with Zeny to discuss the medication and stresstest results. That appt is next Thursday the . Is it okay for pt to hold the medication until hesees Zeny? documented in this encounterKettering [facility]04-14-2025 Telephone encounter Note * Telephone Encounter - Tala Torres LPN - 07/18/2024 9:21 AM EDT Patient calling back he has appt in on 07/26 so cancelled appt with Zeny and made another onefor 07/25 at 1120 am. Patient is more concerned with side effects of Nifedipine causing his shortness of breath. Patient asking to be able to stop taking the medication to see if that clears his shortness of breath? Please advise [facility]04-[facility] Telephone encounter Note* Telephone Encounter - Ramila Anand RN - 07/18/2024 8:22 AM EDT 1) Pt calling in to update Zeny [...] his Nifedipine for 24 hours prior to hisstress test appt. He states he had to look the med up and when he did, he noticed that side effectsfrom the Nifedipine can be SOB and muscle cramps which he has had both. He states that he feels hisSOB occurred about 1 week after initially starting the Nifedipine (which was in January 2024). Pt wants to hold his Nifedipine until he has his followup with Zeny to discuss the medication and stresstest results. That appt is next Thursday the . Is it okay for pt to hold the medication until hesees Zeny? [facility]04-[facility] History of Present illness Narrative* Cris Kincaid, RT(R) - 07/18/2024 7:30 AM EDT RADIOLOGY SERVICE PROGRESS NOTE SERVICE DATE: 07/18/2024 [...] falls during this visit? Instructed Patient to Callfor Help if Needed, Offered Assistance with Transfers/Clothing, Instructed Patient to Remain Seated(Not on Exam Table) Until Exam, Increased Observations by Caregivers, and Escorted to/from Restroom PATIENT GENDER DATA: .male ALLERGIES: Reviewed and unchanged MEDICATIONS REVIEWED: No PATIENT RELEVANT IMPLANT DATA REVIEWED: Not Applicable PATIENT PRESENTS WITH AN IMPLANTABLE OR ATTACHED SERVICE ARCHITECT: n/a CREATININE: Creatinine Date Value Ref Range [...] creatinine assay has traceable calibration to isotope dilution- mass spectrometry. Refer to KDIGO guidelines for clinical interpretation. In patients with unstable renal function, e.g. those with acute kidney injury, the eGFRmay not accurately reflect actual GFR. eGFR- Date Value Ref Range Status 05/07/2021 >60 Final P.O.C.T. RESULTS: N/A July 18, [address] PERFORMED: No IV SITE: Ambulatory: A peripheral IV was started in the Left antecubital site with a Angio cath: 22gauge. POST EXAM PIV STATUS: Discontinued PROCEDURE TYPE: NM Stress: 13.9 mCi [id number] was administered IV for Rest Imaging at 07:38 by . 36 mCi [id number] was administered IV for Stress Imaging at 08:45 by . PATIENT DISCHARGED TO: Ambulatory patient, left [place] department area. Is this a therapy: No A Diagnostic radioactive procedure has taken place, with no further precautions necessary other than routine body substance precautions. More information regarding radiation safety can be found usingthis link: [email or web address] SIGNATURE: RT Lion(Jose J) PATIENT NAME: Alex Brooks DATE: July 18, 2024 TIME: 12:00 PM PAGER/CONTACT #: documented in this encounterKettering [facility]04-09-2025 Telephone encounter Note * Telephone Encounter - Cyndy Whelan RN - 07/13/2024 5:28 PM EDT Pt called and is notified of providers message and instructions. Pt voices understanding. Updated Anticoag tracker. Cyndy Whelan RN [facility]04-09-2025 Miscellaneous Notes* Telephone Encounter - Cyndy Whelan RN - 07/13/2024 5:28 PM EDT Pt called and is notified of providers message and instructions. Pt voices understanding. Updated Anticoag tracker. Cyndy Whelan RN * Telephone Encounter - Zeny Lam APRN.CNP - 07/13/2024 1:19 PM EDT Continue current dose and ok for check on 07/27. * Telephone Encounter - Tammie Munguia RN - 07/13/2024 11:35 AM EDT Last INR: INR Home CoaguChek 2.3 07/13/2024 [...] No antibiotics No missed documented in this encounterKettering [facility]04-09-2025 Telephone encounter Note * Telephone Encounter - Zeny Lam APRN.CNP - 07/13/2024 1:19 PM EDT Continue current dose and ok for check on 07/27. [facility]04-09-20[facility] Telephone encounter Note* Telephone Encounter - Tammie Munguia RN - 07/13/2024 11:35 AM EDT Last INR: INR Home CoaguChek 2.3 07/13/2024 Current dose of coumadin is: 7.5 mg and 5 mg alternating dose. 10 mg on Thursday before he tests Last date of dose change: 05-18-24. Previous INR (date and result): 3.0 06/29/2024 Patient has INR testing scheduled for 07/27 Additional Clinical Information or narrative: No alcohol No change in diet No antibiotics No missed [facility]04-03-20[facility] Telephone encounter Note* Telephone Encounter - Alvin He RN - 07/07/2024 4:44 PM EDT Pt phoned to let Zeny know his [...] urgent you can contact him next week. [facility]04-03-2025 Miscellaneous Notes* Telephone Encounter - Alvin He RN - 07/07/2024 4:44 PM EDT Pt phoned to let Zeny know his [...] contact him next week. documented in this encounterKet[facility]03-28-2025 Telephone encounter Note * Telephone Encounter - Tammy Wang MA - 07/01/2024 2:16 PM EDT Pharmacy request denied. Patient needs to contact office for refills. Tammy Wang MA [facility]03-28-2025 Miscellaneous Notes* Telephone Encounter - Tammy Wang MA - 07/01/2024 2:16 PM EDT Pharmacy request denied. Patient needs to contact office for refills. Tammy Wang MA documented in this encounterKettering [facility]03-26-2025 Telephone encounter Note * Telephone Encounter - Gabby Rm LPN - 06/29/2024 2:53 PM EDT PATIENT NOTIFIED OF SAME. [facility]03-26-2025 Miscellaneous Notes* Telephone Encounter - Gabby Rm LPN - 06/29/2024 2:53 PM EDT PATIENT NOTIFIED OF SAME. * Telephone Encounter - Zeny Lam APRN.CNP - 06/29/2024 12:53 PM EDT Continue with the current dose and repeat INR in 3 weeks. Thanks. Zeny Lam APRN.CNP * Telephone Encounter - Antoinette Meadows RN - 06/29/2024 12:01 PM EDT Last INR: INR Lab CoaguChek 3.0 06/29/2024 [...] unusual bleeding or bruising. documented in this encounterKettering [facility]03-26-2025 Telephone encounter Note * Telephone Encounter - Zeny Lam APRN.CNP - 06/29/2024 12:53 PM EDT Continue with the current dose and repeat INR in 3 weeks. Thanks. Zeny Lam APRN.CNP [facility]03-26-2025 Telephone encounter Note* Telephone Encounter - Antoinette Meadows RN - 06/29/2024 12:04 PM EDT Patient also wants to let Zeny know that he he doesn't want a stent. He would like to have the sameprocedure he had done as with his carotid arteries if this is possible. He said he knows the stresstest needs completed first but he just wanted to make note of this now. Antoinette Meadows RN [facility]03-26-2025 Miscellaneous Notes* Telephone Encounter - Antoinette Meadows RN - 06/29/2024 12:04 PM EDT Patient also wants to let Zeny know that he he doesn't want a stent. He would like to have the sameprocedure he had done as with his carotid arteries if this is possible. He said he knows the stresstest needs completed first but he just wanted to make note of this now. Antoinette Meadows RN documented in this encounterKettering [facility]03-26-2025 Telephone encounter Note * Telephone Encounter - Antoinette Meadows RN - 06/29/2024 12:01 PM EDT Last INR: INR Lab CoaguChek 3.0 06/29/2024 [...] white wine, no unusual bleeding or bruising. [facility]03-22-2025 Telephone encounter Note* Telephone Encounter - Gabby Rm LPN - 06/25/2024 8:47 AM EDT Prescription Refill Information The patient has been [...] Rm LPN June 25, 2024 8:47 AM [facility]03-22-2025 Miscellaneous Notes* Telephone Encounter - Gabby Rm LPN - 06/25/2024 8:47 AM EDT Prescription Refill Information The patient has been [...] 25, 2024 8:47 AM documented in this encounterKettering [facility]03-18-2025 Telephone encounter Note * Telephone Encounter - Ellen Coffman LPN - 06/21/2024 9:19 AM EDT Returned patients call offered patient billing number. Patient states he already has number. Informed patient that we are unable to perform nail care as nurse visit. Patient verbalized understanding and will call billing. Ellen Coffman LPN [facility] Work Phone: 1(666) 970-634503-18-2025 Miscellaneous Notes* Telephone Encounter - Ellen Coffman LPN - 06/21/2024 9:19 AM EDT Returned patients call offered patient billing number. Patient states he already has number. Informed patient that we are unable to perform nail care as nurse visit. Patient verbalized understanding and will call billing. Ellen Coffman LPN * Telephone Encounter - Hilaria Harp LPN - 06/20/2024 10:57 AM EDT Patient called in and is wondering if [...] him. Hilaria Harp LPN documented in this encounterKettering [facility]03-17-2025 Telephone encounter Note * Telephone Encounter - Gabby Rm LPN - 06/20/2024 2:47 PM EDT PATIENT NOTIFIED OF SAME. [facility]03-17-2025 Miscellaneous Notes* Telephone Encounter - Gabby Rm LPN - 06/20/2024 2:47 PM EDT PATIENT NOTIFIED OF SAME. * Telephone Encounter - Zeny Lam APRN.CNP - 06/20/2024 12:37 PM EDT We can discuss the PSA testing in more depth with his follow up but at this time I would not recommend adding it to his upcoming labs. * Telephone Encounter - Hilaria Harp LPN - 06/20/2024 11:01 AM EDT Patient called in and wondered if he should have a PSA added to his upcoming labs to be completed. He states when he saw Oncology at [facility] they do not order those after the age of 78. Hilaria Harp LPN documented in this encounterKettering [facility]03-17-2025 Telephone encounter Note * Telephone Encounter - Zeny Lam APRN.CNP - 06/20/2024 12:37 PM EDT We can discuss the PSA testing in more depth with his follow up but at this time I would not recommend adding it to his upcoming labs. [facility]03-17-2025 Telephone encounter Note* Telephone Encounter - Hilaria Harp LPN - 06/20/2024 11:01 AM EDT Patient called in and wondered if he should have a PSA added to his upcoming labs to be completed. He states when he saw Oncology at [facility] they do not order those after the age of 78. Hilaria Harp LPN [facility]03-17-2025 Telephone encounter Note* Telephone Encounter - Hilaria Harp LPN - 06/20/2024 10:57 AM EDT Patient called in and is wondering if [...] upcoming appt with him. Hilaria Harp LPN [facility]03-13-2025 Progress note* Result Encounter Note - Bonnie Sharif APRN.CNS - 06/16/2024 8:12 AM EDT magnesium within normal limits [facility] Work Phone: 1(503) 717-935503-13-2025 Miscellaneous Notes* Result Encounter Note - Bonnie Sharif APRN.CNS - 06/16/2024 8:12 AM EDT magnesium within normal limits documented in this encounterKettering [facility]03-12-2025 Telephone encounter Note * Telephone Encounter - Zeny Lam APRN.CNP - 06/15/2024 2:29 PM EDT See my chart reply [facility]03-12-2025 Miscellaneous Notes* Telephone Encounter - Zeny Lam APRN.CNP - 06/15/2024 2:29 PM EDT See my chart reply * Telephone Encounter - Antoinette Meadows RN - 06/15/2024 12:35 PM EDT Patient calls back to add that he forgot to mention he would like to start acupuncture in again for lower back pain and bulging disc with Walt Yang and asking Zeny's opinion. Patient to check with insurance but will need letter as previously received last year if Zeny agrees. Please see below for anti coag Antoinette Meadows RN * Telephone Encounter - Alvin He RN - 06/15/2024 12:24 PM EDT Last INR: INR Lab CoaguChek 2.7 06/15/2024 [...] MyChart or Phone call. documented in this encounterKettering [facility]03-12-2025 Telephone encounter Note * Telephone Encounter - Antoinette Meadows RN - 06/15/2024 12:35 PM EDT Patient calls back to add that he forgot to mention he would like to start acupuncture in again for lower back pain and bulging disc with Walt Yang and asking Zeny's opinion. Patient to check with insurance but will need letter as previously received last year if Zeny agrees. Please see below for anti coag Antoinette Meadows RN [facility]03-12-2025 Telephone encounter Note* Telephone Encounter - Alvin He RN - 06/15/2024 12:24 PM EDT Last INR: INR Lab CoaguChek 2.7 06/15/2024 [...] advise him via MyChart or Phone call. [facility]03-05-2025 Miscellaneous Notes* Telephone Encounter - Gabby Rm LPN - 06/08/2024 4:17 PM EST Prescription Refill Information The patient has been [...] 08, 2024 4:17 PM documented in this encounterKettering [facility]03-05-2025 Telephone encounter Note * Telephone Encounter - Gabby Rm LPN - 06/08/2024 4:17 PM EST Prescription Refill Information The patient has been [...] Rm LPN June 08, 2024 4:17 PM [facility]03-05-2025 History of Present illness Narrative* Zeny Lam APRN.THEATRICAL AGENT - 06/08/2024 3:14 PM EST SUBJECTIVE Alex Brooks is a 78 year old male here today for a check up on his medical problems. Chief Complaint Patient presents with: Recheck: update of current condition SOB with stress test 07/18/24 HPI Alex Brooks is a 78 year old male. He presents today for recheck. [facility]. Continues to have shortness of breath. This occurs with exertion andresolves with rest. Onset was over the last [...] told this was okay. Seeing [facility]. Blood pressure has been controlled. Still with [...] tablet by mouth every 6 hours as neededfor pain for up to 7 days. No [...] Endarterectomy - 06/10/2019 Colonic Polyp - 11/29/2018 Alf (Current) Use of Anticoagulants - 09/15/2018 Recurrent [...] trial an ICS-LABA inhaler, if stress test negativethen consider pulmonary work up with PFTs and [...] Vision abnormalities - ICD9: 368.9, ICD10: H53.9 [facility] appointment coming up. Portions of this note [...] from today's visit and in agreement with treatmentplan. Questions answered. Agrees to call the office [...] as well as compliance with taking medications. Age- appropriate health preventative measures were discussed. Return if symptoms worsen or fail to improve, for Keep next scheduled appointment.. Zeny Lam APRN-KAYLA documented in this encounterKettering [facility]03-05-2025 Telephone encounter Note * Telephone Encounter - Gabby Rm LPN - 06/08/2024 9:10 AM EST Prescription Refill Information The patient has been [...] Rm LPN June 08, 2024 9:10 AM [facility]03-05-2025 Miscellaneous Notes* Telephone Encounter - Gabby Rm LPN - 06/08/2024 9:10 AM EST Prescription Refill Information The patient has been [...] 08, 2024 9:10 AM documented in this encounterKettering [facility]03-05-2025 Telephone encounter Note * Telephone Encounter - Gabby Rm LPN - 06/08/2024 9:09 AM EST Prescription Refill Information The patient has been [...] Rm LPN June 08, 2024 9:09 AM [facility]03-05-2025 Miscellaneous Notes* Telephone Encounter - Gabby Rm LPN - 06/08/2024 9:09 AM EST Prescription Refill Information The patient has been [...] 08, 2024 9:09 AM documented in this encounterKettering [facility]03-03-2025 Telephone encounter Note * Telephone Encounter - Zeny Lam APRN.CNP - 06/06/2024 12:31 PM EST Noted, we will address acute concerns with the visit. [facility]03-03-2025 Miscellaneous Notes* Telephone Encounter - Zeny Lam APRN.CNP - 06/06/2024 12:31 PM EST Noted, we will address acute concerns with the visit. * Telephone Encounter - Cyndy Whelan RN - 06/06/2024 11:17 AM EST Pt called in and reports he sees provider on 06/08 at 3 pm. Pt states he has several things he needs to go over with provider when he sees her. Pt states he saw Cardiology and they want him to havea Nuclear Stress test on 07/18/24 since provider [...] so many of those. Pt was asking ifthere is anything else he could take for the arthritis with being on Coumadin, and I said Tylenol arthritis, and he said Tylenol usually doesn't help him but he could try that. Pt reports he has beenhaving vision issues everyday of his vision getting [...] nothing that he can tell that is causingit. Pt states he has na appointment with his retinal surgeon up at the [facility] but that isn't until August. I told Pt provider may not have time to go over all of this information in a 20 minappointment. Pt states that's why he wanted to let her know ahead of time, and she will usually extend the appointment. I told him she didn't have any time to extend the appointment. Pt states he doesn't need a call back. He just wanted to let provider know a head of time before appointment. documented in this encounterKettering [facility]03-03-2025 Telephone encounter Note * Telephone Encounter - Cyndy Whelan RN - 06/06/2024 11:17 AM EST Pt called in and reports he sees provider on 06/08 at 3 pm. Pt states he has several things he needs to go over with provider when he sees her. Pt states he saw Cardiology and they want him to havea Nuclear Stress test on 07/18/24 since provider [...] so many of those. Pt was asking ifthere is anything else he could take for the arthritis with being on Coumadin, and I said Tylenol arthritis, and he said Tylenol usually doesn't help him but he could try that. Pt reports he has beenhaving vision issues everyday of his vision getting [...] nothing that he can tell that is causingit. Pt states he has na appointment with his retinal surgeon up at the [facility] but that isn't until August. I told Pt provider may not have time to go over all of this information in a 20 minappointment. Pt states that's why he wanted to let her know ahead of time, and she will usually extend the appointment. I told him she didn't have any time to extend the appointment. Pt states he doesn't need a call back. He just wanted to let provider know a head of time before appointment. [facility]02-28-2025 Telephone encounter Note* Telephone Encounter - Maribel Oden LPN - 06/03/2024 8:39 AM EST Spoke with pt and information listed below given. Pt verbalizes understanding. Maribel Oden LPN [facility]02-28-2025 Miscellaneous Notes* Telephone Encounter - Maribel Oden LPN - 06/03/2024 8:39 AM EST Spoke with pt and information listed below given. Pt verbalizes understanding. 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 * Telephone Encounter - Maribel Oden LPN - 05/30/2024 12:30 PM EST Pt calling because he has some questions. [...] pt. 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 [facility]02-27-2025 Telephone encounter Note* Telephone Encounter - Cyndy Whelan RN - 06/02/2024 12:57 PM EST Pt called and is notified of providers results and instructions. Pt voices understanding. Updated Anticoag tracker. Pt wanted to let provider know that she had told him to reduce his Magnesium for diarrhea and that helped. Cyndy Whelan RN [facility]02-27-2025 Miscellaneous Notes* Telephone Encounter - Cyndy Whelan RN - 06/02/2024 12:57 PM EST Pt called and is notified of providers results and instructions. Pt voices understanding. Updated Anticoag tracker. Pt wanted to let provider know that she had told him to reduce his Magnesium for diarrhea and that helped. Cyndy Whelan RN * Telephone Encounter - Bonnie Sharif APRN.CNS - 06/02/2024 11:25 AM EST Continue with Coumadin dose unchanged and check INR in 2 weeks. * Telephone Encounter - Cyndy Whelan RN - 06/01/2024 11:38 AM EST Last INR: INR Home CoaguChek 2.7 06/01/2024 Current dose of coumadin is: Alternate 7.5 mg and 5 mg daily, and he took 10 mg on Thursday. Last date of dose change: 05/18/24. Previous INR (date and result): 2/12/25, 2.2 Additional Clinical Information or narrative: yes: Pt denies bruising and bleeding, or any changes to diet, denies missed doses, reports he drank alcohol but it was 4 days before testing. [facility] Telephone encounter Note * Telephone Encounter - Bonnie Sharif APRN.CNS - 06/02/2024 11:25 AM EST Continue with Coumadin dose unchanged and check INR in 2 weeks. [facility] Work Phone: 1(109) 844-789302-26-2025 Telephone encounter Note* Telephone Encounter - Cyndy Whelan RN - 06/01/2024 11:38 AM EST Last INR: INR Home CoaguChek 2.7 06/01/2024 [...] it was 4 days before testing. [facility]02-24-20[facility] Telephone encounter Note* Telephone Encounter - Maribel Oden LPN - 05/30/2024 12:30 PM EST Pt calling because he has some questions. [...] Please advise pt. Maribel Oden LPN [facility]02-18-2025 History of Present illness Narrative* Jaycob Edgar David, DO - 05/24/2024 11:51 AM EST Images from the original note were not included. [facility] [place] DEPARTMENT OF VASCULAR SURGERY OUTPATIENT VISIT DATE May 24, 2024 OUTPATIENT VISIT TYPE ESTABLISHED SERVICE DATE: 05/24/2024 SERVICE TIME: 11:51 AM PRIMARY CARE PHYSICIAN: Zeny Lam APRN.THEATRICAL AGENT HISTORY OF PRESENT ILLNESS: Mr. Brooks is [...] to knees, as of 2008 --- in [place], neurologist thought related to alcohol; Has had EMG/NCS ?Related to sugar? -- see fasting glucose 2008; [...] tablet by mouth every 6 hours as neededfor pain for up to 7 days. famotidine [...] 2024 TIME: 11:51 AM documented in this encounterK[facility]02-13-2025 History of Present illness Narrative* Gayle Green - 05/19/2024 1:25 PM EST Images from the original note were not included. Initial Podiatric Office Visit: Chief Complaint: This 78 year old male who presents with chief complaint:dystrophic toenails HPI Patient presents to clinic with complaint of dystrophic toenails. The left great toenail at times will cause him pain Had been receiving treatment elsewhere but his insurance is out of network at the other provider sohe is coming here Does have neuropathy and [...] constant pain from my lower back. I believethe pain is caused by arthritis. Hemoglobin A1C (%) Date Value 02/09/2024 5.8 12/14/2023 5.9 06/05/2023 5.1 02/25/2023 5.9 08/18/2022 5.6 10/15/2017 5.5 04/14/2017 5.6 10/23/2011 5.7 HBA1C, Ernest (%) Date Value 07/24/2011 5.8 08/24/2009 6.3 Hemoglobin A1C (POCT) (%) Date Value 03/22/2021 5.1 PCP: Zeny Genaro, AIR CONDITIONING SUPERVISOR.THEATRICAL AGENT PAST MEDICAL HISTORY Diagnosis Date Asthma as [...] to knees, as of 2008 --- in [place], neurologist thought related to alcohol; Has had EMG/NCS ?Related to sugar? -- see fasting glucose 2008; [...] tablet by mouth every 6 hours as neededfor pain for up to 7 days. famotidine [...] growth present to digits Non-Invasive Vascular Laboratory [facility] Lower Extremity Arterial Physiology Study Bilateral/Complete Date [...] superficial femoral disease. Technologist: Bhavna Buchanan RVT, RDMS Ordering physician: EDGAR LOAIZA Interpreting physician: Mark Do MD, RPVI Neurological: absent light touch/epicritic sensation Vibratory sensation absent b/l absent protective sensation + significant neurological deficits Dermatological: Nails 1-5 b/l appear thick, discolored, painful. Webspaces clean and dry 1-4 b/l. Skin appears wellhydrated and supple. good color, texture, turgor. No [...] right foot (I73.9) PAD (peripheral artery disease) ([facility]) (M20.40) Hammer toe, unspecified [...] for nail care Gayle Green DPM Podiatry [address] [place] [address] Dept: [phone] Dept * Ellen Coffman LPN - 05/19/2024 1:17 PM EST AMB ROOMING INTAKE FLOWSHEET DATA Pain Pain Location: Back-Lower Description: Aching, Pressure, Stiffness Duration Amount of Time: 24 Duration Units: Hours Frequency: Continuous Intervention/Comfort measure: Other: See comment Comments: I'm on Cumadin and can only take an opioid Percoset for pain. Tylenol and other opiods don't work. Because I'm concern with taking opiods, I'm in constant pain from my lower back. I believethe pain is caused by arthritis. Patient presents with: Left Foot - Numbness, nail care Right Foot - Numbness, nail care Ellen Coffman LPN documented in this encounterK[facility]02-12-2025 Telephone encounter Note * Telephone Encounter - Cyndy Whelan RN - 05/18/2024 6:32 PM EST Pt called and is notified of providers results and instructions. Pt voices understanding. Updated Anticoag tracker. Cyndy Whelan RN [facility]02-12-2025 Miscellaneous Notes* Telephone Encounter - Cyndy Whelan RN - 05/18/2024 6:32 PM EST Pt called and is notified of providers results and instructions. Pt voices understanding. Updated Anticoag tracker. Cyndy Whelan RN * Telephone Encounter - Mani Edwards MD - 05/18/2024 6:23 PM EST No change Recheck in 2 weeks to verify stable on same dose as usual after the 10 mg dose given 2/4 * Telephone Encounter - Tammie Munguia RN - 05/18/2024 11:27 AM EST Last INR: INR Home CoaguChek 2.2 05/18/2024 Current dose of coumadin is: 5 mg and 7.5 alternating daily. Patient took 10 mg per instructions on05/10/2024 Last date of dose change: Unknown. Previous [...] for next INR testing. documented in this encounterK[facility]02-12-2025 Telephone encounter Note * Telephone Encounter - Mani Edwards MD - 05/18/2024 6:23 PM EST No change Recheck in 2 weeks to verify stable on same dose as usual after the 10 mg dose given 05/10 [facility]02-12-2025 Telephone encounter Note* Telephone Encounter - Tammie Munguia RN - 05/18/2024 11:27 AM EST Last INR: INR Home CoaguChek 2.2 05/18/2024 Current dose of coumadin is: 5 mg and 7.5 alternating daily. Patient took 10 mg per instructions on05/10/2024 Last date of dose change: Unknown. Previous [...] in 2 weeks for next INR testing. [facility] History of Present illness Narrative* Teri Gruber APRN.THEATRICAL AGENT - 05/17/2024 2:09 PM EST Chief Complaint Patient presents with: F/U 3 Month HPI Alex Brooks is a 78 year old male who presents here today for Above Complaints. Requesting refill on his chronic Percocet rx as initiated by Dr. Edwards. Uses for his chronic low back pain [...] to knees, as of 2008 --- in [place], neurologist thought related to alcohol; Has had EMG/NCS ?Related to sugar? -- see fasting glucose 2008; [...] tablet by mouth every 6 hours as neededfor pain for up to 7 days. No [...] All prescriptions have been APPROPRIATELY filled. No suspiciousactivity was identified. 05/17/2024 by Teri Gruber CNP. [...] OXYCODONE-ACETAMINOPHEN 7.5 MG-325 MG TABLET Teri Gruber APRN.THEATRICAL AGENT documented in this encounterK[facility]02-05-2025 Telephone encounter Note * Telephone Encounter - Tammie Munguia RN - 05/11/2024 3:16 PM EST Patient calls back and states that he talked to [facility] and patient is eligible for Covid Vaccine.Patient report that [facility] to get vaccine. Provider does not have to adviseon this anymore. Tammie Munguia RN [facility]02-05-2025 Miscellaneous Notes* Telephone Encounter - Tammie Munguia RN - 05/11/2024 3:16 PM EST Patient calls back and states that he talked to [facility] and patient is eligible for Covid Vaccine.Patient report that he has appointment at [facility] to get vaccine. Provider does not have to adviseon this anymore. Tammie Munguia RN * Telephone Encounter - Maribel Oden LPN - 05/11/2024 1:57 PM EST Pt called to see if he is due for a COVID vaccine. Please advise pt. Maribel Oden LPN documented in this encounterK[facility]02-05-2025 Telephone encounter Note * Telephone Encounter - Maribel Oden LPN - 05/11/2024 1:57 PM EST Pt called to see if he is due for a COVID vaccine. Please advise pt. Maribel Oden LPN [facility]02-04-2025 Telephone encounter Note* Telephone Encounter - Haydee Lee LPN - 05/10/2024 2:21 PM EST Patient notified of providers message and verbalized understanding. [facility]02-04-2025 Miscellaneous Notes* Telephone Encounter - Haydee Lee LPN - 05/10/2024 2:21 PM EST Patient notified of providers message and verbalized understanding. * Telephone Encounter - Bonnie Sharif APRN.CNS - 05/10/2024 2:08 PM EST He can take coumadin 10 mg today then resume usual dosing. * Telephone Encounter - Haydee Lee LPN - 05/10/2024 1:26 PM EST Spoke with patient. Patient is concerned about instructions. Patient is scheduled to take 7.5 mg tonight so schedule is not changing and believes 1.6 is too low for him, believe there should be a change. Please advise * Telephone Encounter - Bonnie Sharif APRN.CNS - 05/10/2024 12:51 PM EST Recommend Coumadin 7.5 mg today then resume usual schedule with alternating doses 7.5 mg and 5 mg every other day,check INR in 1 week. Latest Ref Rng 03/24/2024 04/12/2024 04/27/2024 05/10/2024 PT Sec <13.1 sec 21.5 (H) 24.2 (H) 22.4 (H) 16.2 (H) PT INR 0.9 - 1.3 2.2 (H) 2.4 (H) 2.3 (H) 1.6 (H) Legend: (H) High * Telephone Encounter - Tammie Munguia RN - 05/10/2024 11:49 AM EST Last INR: INR Home CoaguChek 1.6 05/10/2024 [...] is scheduled for 05/18/2024. documented in this encounterK[facility]02-04-2025 Telephone encounter Note * Telephone Encounter - Bonnie Sharif APRN.CNS - 05/10/2024 2:08 PM EST He can take coumadin 10 mg today then resume usual dosing. [facility] Work Phone: 1(654) 108-337502-04-2025 Telephone encounter Note* Telephone Encounter - Haydee Lee LPN - 05/10/2024 1:26 PM EST Spoke with patient. Patient is concerned about instructions. Patient is scheduled to take 7.5 mg tonight so schedule is not changing and believes 1.6 is too low for him, believe there should be a change. Please advise [facility]-04-20[facility] Telephone encounter Note* Telephone Encounter - Bonnie Sharif APRN.CNS - 05/10/2024 12:51 PM EST Recommend Coumadin 7.5 mg today then resume usual schedule with alternating doses 7.5 mg and 5 mg every other day,check INR in 1 week. Latest Ref Rng 03/24/2024 04/12/2024 04/27/202405/1005/10/2024 PT Sec <13.1 sec 21.5 (H) 24.2 (H) 22.4 (H) 16.2 (H) PT INR 0.9 - 1.3 2.2 (H) 2.4 (H) 2.3 (H) 1.6 (H) Legend: (H) High [facility]02-04-2025 Telephone encounter Note* Telephone Encounter - Tammie Munguia RN - 05/10/2024 11:49 AM EST Last INR: INR Home CoaguChek 1.6 05/10/2024 [...] a week. Patient is scheduled for 05/18/2024. [facility]01-22-2025 Telephone encounter Note* Telephone Encounter - Sherry Rodrigues MD - 04/27/2024 6:04 PM EST Noted. Agree with current dose and repeat in 2 weeks Regards, Sherry Rodrigues MD [facility] Work Phone: 1(633) [phone] Miscellaneous Notes* Telephone Encounter - Sherry Rodrigues MD - 04/27/2024 6:04 PM EST Noted. Agree with current dose and repeat in 2 weeks Sherry Hicks MD * Telephone Encounter - Ramila Anand RN - 04/27/2024 11:51 AM EST Pt calling in to report his INR. Pt states he will plan on no changes and repeat INR in 2 weeks. Ptrequested to be scheduled. Appt 05/11/24 at 1115 [...] Information or narrative: no documented in this encounterK[facility]01-22-2025 Telephone encounter Note * Telephone Encounter - Ramila Anand RN - 04/27/2024 11:51 AM EST Pt calling in to report his INR. Pt states he will plan on no changes and repeat INR in 2 weeks. Ptrequested to be scheduled. Appt 05/11/24 at 1115 [...] 2.4 Additional Clinical Information or narrative: no [facility]01-07-2025 Telephone encounter Note* Telephone Encounter - Bonnie Sharif APRN.CNS - 04/12/2024 3:30 PM EST ok [facility]01-07-2025 Miscellaneous Notes* Telephone Encounter - Bonnie Sharif APRN.CNS - 04/12/2024 3:30 PM EST ok * Telephone Encounter - Gabby Rm LPN - 04/12/2024 1:30 PM EST PATIENT NOTIFIED OF SAME. Patient stopped OTC magnesium about 2-3 weeks ago. It was suggested to stopped it due to symptoms of diarrhea. Within 2 days of stopping diarrhea improved. Would like a magnesium level check at next INR drawn. * Telephone Encounter - Bonnie Sharif APRN.CNS - 04/12/2024 12:41 PM EST Continue with Coumadin dose unchanged check INR in 2 weeks * Telephone Encounter - Tammie Munguia RN - 04/12/2024 11:05 AM EST Last INR: INR Home CoaguChek 2.4 04/12/2024 [...] INR in 2 weeks. documented in this encounterK[facility]01-07-2025 Telephone encounter Note * Telephone Encounter - Gabby Rm LPN - 04/12/2024 1:30 PM EST PATIENT NOTIFIED OF SAME. Patient stopped OTC magnesium about 2-3 weeks ago. It was suggested to stopped it due to symptoms of diarrhea. Within 2 days of stopping diarrhea improved. Would like a magnesium level check at next INR drawn. [facility]01-07-2025 Telephone encounter Note* Telephone Encounter - Bonnie Sharif APRN.CNS - 04/12/2024 12:41 PM EST Continue with Coumadin dose unchanged check INR in 2 weeks [facility]01-07-2025 Telephone encounter Note* Telephone Encounter - Tammie Munguia RN - 04/12/2024 11:05 AM EST Last INR: INR Home CoaguChek 2.4 04/12/2024 [...] his appointment for INR in 2 weeks. [facility]12-20-2024 Telephone encounter Note* Telephone Encounter - Graciela Parker RN - 03/25/2024 1:45 PM EST Patient calling with medication related question. Information reviewed. Graciela Parker RN [facility]12-20-2024 Miscellaneous Notes* Telephone Encounter - Graciela Parkre RN - 03/25/2024 1:45 PM EST Patient calling with medication related question. Information reviewed. Graciela Parker RN documented in this encounterK[facility]12-20-2024 Miscellaneous Notes* Telephone Encounter - Osei Maciel LPN - 03/25/2024 11:01 AM EST Letter ready to be mailed, patient aware. Osei Maciel LPN * Telephone Encounter - Gabby Rm LPN - 03/25/2024 9:09 AM EST Letter printed and at nurse pod for signature. * Telephone Encounter - Mani Edwards MD - 03/24/2024 5:49 PM EST Print parking placard letter for me--cannot change from Zeny Lam on the letterhead. For cannot walk without stopping to rest and condition orthopedic. Permanent for 10 years * Telephone Encounter - Tammie Munguia RN - 03/23/2024 4:31 PM EST Patient calls back and is asking if handicap placard paper work can be mailed out to him. Address verified. Patient states that he has a hard time walking distances. Tammie Munguia RN * Telephone Encounter - Corrina Whipple - 03/22/2024 1:50 PM EST Patient called requesting paper work for the renewal of the disability placard Please advise documented in this encounterK[facility]12-20-2024 Telephone encounter Note * Telephone Encounter - Osei Maciel LPN - 03/25/2024 11:01 AM EST Letter ready to be mailed, patient aware. Osei Maciel LPN [facility]12-20-2024 Telephone encounter Note* Telephone Encounter - Gabby Rm LPN - 03/25/2024 9:09 AM EST Letter printed and at nurse pod for signature. [facility]12-19-2024 Telephone encounter Note* Telephone Encounter - Mani Edwards MD - 03/24/2024 5:49 PM EST Print parking placard letter for me--cannot change from Zeny Lam on the letterhead. For cannot walk without stopping to rest and condition orthopedic. Permanent for 10 years [facility]12-19-2024 Telephone encounter Note* Telephone Encounter - Tala Torres LPN - 03/24/2024 4:11 PM EST Patient returned call and went over notes below from Nahomi Sharif LICENSED MENTAL HEALTH PROFESSIONAL with understanding. [facility]12-19-2024 Miscellaneous Notes* Telephone Encounter - Tala Torres LPN - 03/24/2024 4:11 PM EST Patient returned call and went over notes below from Nahomi Sharif LICENSED MENTAL HEALTH PROFESSIONAL with understanding. * Telephone Encounter - Ramila Anand RN - 03/24/2024 3:58 PM EST Called and left a voicemail for the patient to call back and ask for a nurse to receive the providers message. * Telephone Encounter - Bonnie Sharif APRN.CNS - 03/24/2024 3:29 PM EST Both olmesartan and nifedipine have low incidence of diarrhea (1-3%). I recommend try reducing his supplemental OTC magnesium to see if this helps. He should note improvement in a few days. If not I would recommend a visit to check diarrhea and BP and make medication adjustments if needed. * Telephone Encounter - Haydee Lee LPN - 03/24/2024 2:38 PM EST Spoke with patient but he states the medication was referring to was the Nifedipine and the Olmesartan. He also states that the magnesium has not been increased, he is currently taking the 400 mg 2 tabs every other day and 1 tab every other day and there has been no other changes. Has been taking Blood pressure today was 116/67 and pulse 64. * Telephone Encounter - Bonnie Sharif APRN.CNS - 03/24/2024 2:20 PM EST This is not a listed side effect of clonidine. Did anything else change in that time period? Has heincreased his use of magnesium? * Telephone Encounter - Tammie Munguia RN - 03/22/2024 12:25 PM EST Patient calls and states that he has [...] advise, Tammie Munguia RN documented in this encounterK[facility]12-19-2024 Telephone encounter Note * Telephone Encounter - Ramila Anand RN - 03/24/2024 3:58 PM EST Called and left a voicemail for the patient to call back and ask for a nurse to receive the providers message. [facility]12-19-[facility] Telephone encounter Note* Telephone Encounter - Bonnie Sharif APRN.SHANA - 03/24/2024 3:29 PM EST Both olmesartan and nifedipine have low incidence of diarrhea (1-3%). I recommend try reducing his supplemental OTC magnesium to see if this helps. He should note improvement in a few days. If not I would recommend a visit to check diarrhea and BP and make medication adjustments if needed. [facility] Work Phone: 1(975) 557-284212-19-2024 Telephone encounter Note* Telephone Encounter - Haydee Lee LPN - 03/24/2024 2:38 PM EST Spoke with patient but he states the medication was referring to was the Nifedipine and the Olmesartan. He also states that the magnesium has not been increased, he is currently taking the 400 mg 2 tabs every other day and 1 tab every other day and there has been no other changes. Has been taking Blood pressure today was 116/67 and pulse 64. [facility]12-19-2024 Telephone encounter Note* Telephone Encounter - Bonnie Sharif APRN.CNS - 03/24/2024 2:20 PM EST This is not a listed side effect of clonidine. Did anything else change in that time period? Has heincreased his use of magnesium? [facility]12-19-20[facility] Telephone encounter Note* Telephone Encounter - Haydee Lee LPN - 03/24/2024 2:12 PM EST Patient notified of providers message and verbalized understanding. [facility]12-19-2024 Miscellaneous Notes* Telephone Encounter - Haydee Lee LPN - 03/24/2024 2:12 PM EST Patient notified of providers message and verbalized understanding. * Telephone Encounter - Bonnie Sharif APRN.SENIOR BUSINESS DEVELOPMENT ANALYST - 03/24/2024 1:44 PM EST This was sent to me from [facility]. May continue on with Coumadin dose unchanged and check INR in 2 weeks * Telephone Encounter - Tala Torres LPN - 03/24/2024 12:26 PM EST Last INR: INR Home CoaguChek 2.2 03/24/2024 [...] Patient requesting note to be sent to [facility] to review. documented in this encounterK[facility]12-19-2024 Telephone encounter Note * Telephone Encounter - Bonnie Sharif APRN.SENIOR BUSINESS DEVELOPMENT ANALYST - 03/24/2024 1:44 PM EST This was sent to me from [facility]. May continue on with Coumadin dose unchanged and check INR in 2 weeks [facility] Work Phone: 1(231) 272-415712-19-2024 Telephone encounter Note* Telephone Encounter - Tala Torres LPN - 03/24/2024 12:26 PM EST Last INR: INR Home CoaguChek 2.2 03/24/2024 [...] Patient requesting note to be sent to [facility] to review. [facility]12-19-2024 Telephone encounter Note* Telephone Encounter - Mirlande Maria MA - 03/24/2024 11:08 AM EST Patient is [facility] to get [facility] draw but order on file . Please file pended order. Labdoes not need notified. Mirlande Maria MA [facility]12-19-2024 Miscellaneous Notes* Telephone Encounter - Mirlande Maria MA - 03/24/2024 11:08 AM EST Patient is at [facility] to get INR draw but order on file . Please file pended order. Labdoes not need notified. Mirlande Maria MA documented in this encounterK[facility]12-18-2024 Telephone encounter Note * Telephone Encounter - Tammie Munguia RN - 03/23/2024 4:31 PM EST Patient calls back and is asking if handicap placard paper work can be mailed out to him. Address verified. Patient states that he has a hard time walking distances. Tammie Munguia RN [facility]12-17-2024 Telephone encounter Note* Telephone Encounter - Corrina Whipple - 03/22/2024 1:50 PM EST Patient called requesting paper work for the renewal of the disability placard Please advise [facility] Work Phone: 1(441) 518-429312-17-2024 Telephone encounter Note* Telephone Encounter - Tammie Munguia RN - 03/22/2024 12:25 PM EST Patient calls and states that he has [...] Please review and advise, Tammie Munguia RN [facility]12-11-2024 Telephone encounter Note* Telephone Encounter - Kari Briones LPN - 03/16/2024 11:15 AM EST Patient has been identified by name and [...] Please advise. Thank you. Kari Briones LPN. [facility]12-11-2024 Miscellaneous Notes* Telephone Encounter - Kari Briones LPN - 03/16/2024 11:15 AM EST Patient has been identified by name and [...] you. Kari Briones LPN. documented in this encounterKet[facility]12-06-2024 Telephone encounter Note * Telephone Encounter - Tammie Munguia RN - 03/11/2024 9:20 AM EST Patient notified of results and provider's instructions. Patient verbalizes understanding. Tammie Munguia RN [facility]12-06-2024 Miscellaneous Notes* Telephone Encounter - Tammie Munguia RN - 03/11/2024 9:20 AM EST Patient notified of results and provider's instructions. Patient verbalizes understanding. Tammie Munguia RN * Telephone Encounter - Arti Baxter APRN.CNP - 03/11/2024 9:06 AM EST If inr range is 2-3 then she is in therapeutic range and should continue current dose. Ok to recheck in 2 weeks as already scheduled. Thank you Arti Baxter APRN.CNP * Telephone Encounter - Tammie Munguia RN - 03/10/2024 11:49 AM EST Last INR: INR Home CoaguChek 2.5 03/10/2024 [...] INR in 2 weeks. documented in this encounterK[facility]12-06-2024 Telephone encounter Note * Telephone Encounter - Arti Baxter APRN.CNP - 03/11/2024 9:06 AM EST If inr range is 2-3 then she is in therapeutic range and should continue current dose. Ok to recheck in 2 weeks as already scheduled. Thank you Arti Baxter APRN.CNP [facility] Work Phone: 1(335) 349-953012-05-2024 Telephone encounter Note* Telephone Encounter - Tammie Munguia RN - 03/10/2024 11:49 AM EST Last INR: INR Home CoaguChek 2.5 03/10/2024 [...] appointment to recheck INR in 2 weeks. [facility]12-04-2024 Telephone encounter Note* Telephone Encounter - Mani Edwards MD - 03/09/2024 9:24 AM EST The following approved medication requests have been transmitted electronically. Requested Prescriptions Signed Prescriptions Disp Refills LORazepam (ATIVAN) 2 mg tab 90 tablet 1 Sig: Take 1 tablet by mouth at bedtime as needed (insomnia) for up to 180 days. Authorizing Provider: MANI EDWARDS MD [facility]12-04-2024 Miscellaneous Notes* Telephone Encounter - Mani Edwards MD - 03/09/2024 9:24 AM EST The following approved medication requests have been transmitted electronically. Requested Prescriptions Signed Prescriptions Disp Refills LORazepam (ATIVAN) 2 mg tab 90 tablet 1 Sig: Take 1 tablet by mouth at bedtime as needed (insomnia) for up to 180 days. Authorizing Provider: MANI EDWARDS MD * Telephone Encounter - Gabby Rm LPN - 03/08/2024 10:31 AM EST Prescription Refill Information The patient has been [...] 08, 2024 10:32 AM documented in this encounterK[facility]12[facility] Telephone encounter Note * Telephone Encounter - Gabby Rm LPN - 03/08/2024 10:31 AM EST Prescription Refill Information The patient has been [...] Rm LPN March 08, 2024 10:32 AM [facility]11-25-2024 History of Present illness Narrative* Emerald Valera RT(R) - 02/29/2024 11:40 AM EST Radiology Service Progress Note PATIENT NAME: Alex [...] PATIENT PRESENTS WITH AN IMPLANTABLE OR ATTACHED SERVICE ARCHITECT: No RADIOLOGY DEPARTMENT: CT; Exam(s) Completed: Brain PERIPHERAL IV DATA: Not applicable SIGNED BY: RT Poli(oJse J) February 29, 2024 12:06 PM documented in this encounterK[facility]11-21-2024 Telephone encounter Note * Telephone Encounter - Antoinette Meadows RN - 02/25/2024 3:20 PM EST Patient returns call to let office know that he received the message. Antoinette Meadows RN [facility]11-21-2024 Miscellaneous Notes* Telephone Encounter - Antoinette Meadows RN - 02/25/2024 3:20 PM EST Patient returns call to let office know that he received the message. Antoinette Meadows RN * Telephone Encounter - Ludmila Carson MA - 02/25/2024 2:34 PM EST Placed call to patient with no answer. Left VM with detailed instruction to continue same dose of coumadin and recheck inr in two weeks. Advised patient to call back and let us know he received the message. Ludmila Carson MA * Telephone Encounter - Alex Bernal MD - 02/25/2024 2:04 PM EST Same dose. Recheck in two weeks * Telephone Encounter - Ramila Anand RN - 02/25/2024 12:53 PM EST Last INR: INR Home CoaguChek 2.9 02/25/2024 Current dose of coumadin is: 7.5 mg alternating with 5 mg every other day. Last date of dose change: unknown. Previous INR (date and result): 02/08 2.5 Additional Clinical Information or narrative: no changes or problems documented in this encounterK[facility]11-[facility]-2024 Telephone encounter Note * Telephone Encounter - Ludmila Carson MA - 02/25/2024 2:34 PM EST Placed call to patient with no answer. Left VM with detailed instruction to continue same dose of coumadin and recheck inr in two weeks. Advised patient to call back and let us know he received the message. Ludmila Carson MA [facility]11-21-2024 Telephone encounter Note* Telephone Encounter - Alex Bernal MD - 02/25/2024 2:04 PM EST Same dose. Recheck in two weeks [facility] Work Phone: [phone] Telephone encounter Note* Telephone Encounter - Ramila Anand RN - 02/25/2024 12:53 PM EST Last INR: INR Home CoaguChek 2.9 02/25/2024 Current dose of coumadin is: 7.5 mg alternating with 5 mg every other day. Last date of dose change: unknown. Previous INR (date and result): 02/08 2.5 Additional Clinical Information or narrative: no changes or problems [facility]11-11-2024 Telephone encounter Note* Telephone Encounter - Molly Ann RN - 02/15/2024 5:10 PM EST [facility] calling to request clarification on Warfarin script. Pharmacist says they need toknow maximum dose per day to know how long 240 tablets should last. Please review and advise. MORIAH Leiva RN [facility]11-11-2024 Miscellaneous Notes* Telephone Encounter - Molly Ann RN - 02/15/2024 5:10 PM EST [facility] calling to request clarification on Warfarin script. Pharmacist says they need toknow maximum dose per day to know how long 240 tablets should last. Please review and advise. MORIAH Leiva RN documented in this encounterK[facility]11-11-2024 History of Present illness Narrative* Zeny Lam APRN.THEATRICAL AGENT - 02/15/2024 2:32 PM EST SUBJECTIVE Alex Brooks is a 78 year [...] two times a day. 500mg daily) EMANUEL VILLALTA Take 400 mg by mouth twice daily. [...] tablet by mouth every 6 hours as neededfor pain for up to 7 days. 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 No suspiciousactivity was identified. 02/15/2024 by Zeny Lam APRN.THEATRICAL AGENT Portions of this note have been entered by ancillary staff. I have reviewed and when necessary edited, so that they are an adequate record of my encounter with this patient Please note that parts of this document were created using voice recognition software and therefore may contain grammatical errors. Patient verbalizes understanding of instructions from today's visit and in agreement with treatmentplan. Questions answered. Agrees to call the office [...] as well as compliance with taking medications. Age- appropriate health preventative measures were discussed.. Return in about 3 months (around 05/17/2024) for Follow up on chronic conditions and medications.. Zeny Lam APRN-KAYLA documented in this encounterK[facility]11-11-2024 Telephone encounter Note * Telephone Encounter - Osei Maciel LPN - 02/15/2024 9:19 AM EST Patient has OV this afternoon and can discuss medication needs at that time. Patient updated vis MyChart. Osei Maciel LPN [facility]11-11-2024 Miscellaneous Notes* Telephone Encounter - Osei Maciel LPN - 02/15/2024 9:19 AM EST Patient has OV this afternoon and can discuss medication needs at that time. Patient updated vis MyChart. Osei Maciel LPN documented in this encounterK[facility]11-05-2024 Telephone encounter Note * Telephone Encounter - Gabby Rm LPN - 02/09/2024 3:18 PM EST PATIENT NOTIFIED OF SAME. Appt rescheduled for 02/15/24. [facility]11-05-2024 Miscellaneous Notes* Telephone Encounter - Gabby Rm LPN - 02/09/2024 3:18 PM EST PATIENT NOTIFIED OF SAME. Appt rescheduled for 02/15/24. * Telephone Encounter - Zeny Lam APRN.CNP - 02/09/2024 2:25 PM EST Agree with repeat INR in 2 weeks and continue current dose of coumadin. I'm still waiting for the rest of his labs to come back. In order to order the CT we need to do it with an in person visit to document the need/reason for it. He can move up his follow up if he would rather discuss this sooner. * Telephone Encounter - Antoinette Meadows RN - 02/09/2024 12:09 PM EST Last INR: 2.5 02/09/2024 Current dose of [...] the end of the year as his insurancewill be going up and everything is going to be considerably more (CT $120 from a $0 co-pay). Jose J Luevano documented in this encounterK[facility]11-05-2024 Telephone encounter Note * Telephone Encounter - Zeny Lam APRN.CNP - 02/09/2024 2:25 PM EST Agree with repeat INR in 2 weeks and continue current dose of coumadin. I'm still waiting for the rest of his labs to come back. In order to order the CT we need to do it with an in person visit to document the need/reason for it. He can move up his follow up if he would rather discuss this sooner. [facility]11-05-2024 Telephone encounter Note* Telephone Encounter - Anotinette Meadows RN - 02/09/2024 12:09 PM EST Last INR: 2.5 02/09/2024 Current dose of [...] the end of the year as his insurancewill be going up and everything is going to be considerably more (CT $120 from a $0 co-pay). Jose J Luevano [facility]11-04-2024 Telephone encounter Note* Telephone Encounter - Zeny Lam APRN.CNP - 02/08/2024 12:55 PM EST See other encounter. [facility]11-04-2024 Miscellaneous Notes* Telephone Encounter - Zeny Lam APRN.CNP - 02/08/2024 12:55 PM EST See other encounter. * Telephone Encounter - Brandi Lambert LPN - 02/08/2024 12:02 PM EST Pt is asking what to do about the pain. What can he take or what do you recommend . Brandi Lambert LPN documented in this encounterKet[facility]11-04-2024 Telephone encounter Note * Telephone Encounter - Brandi Lambert LPN - 02/08/2024 12:02 PM EST Pt is asking what to do about the pain. What can he take or what do you recommend . Brandi Lambert LPN [facility]11-01-2024 Telephone encounter Note* Telephone Encounter - Zeny Lam APRN.CNP - 02/05/2024 3:02 PM EDT See my chart message encounter. [facility]11-01-2024 Miscellaneous Notes* Telephone Encounter - Zeny Lam APRN.CNP - 02/05/2024 3:02 PM EDT See my chart message encounter. * Telephone Encounter - Tammie Munguia RN - 02/04/2024 9:28 AM EDT Patient calls and states that he has a friend that has a broken back that is worse than what he has. Patient is asking if provider knows of a good neurologist that she would recommend friend to see? Please review and advise, Tammie Munguia RN documented in this encounterK[facility]10-31-2024 Telephone encounter Note * Telephone Encounter - Tammie Munguia RN - 02/04/2024 9:28 AM EDT Patient calls and states that he has a friend that has a broken back that is worse than what he has. Patient is asking if provider knows of a good neurologist that she would recommend friend to see? Please review and advise, Tammie Munguia RN [facility]10-28-2024 History of Present illness Narrative* Aileen Roland RT(R) - 02/01/2024 3:00 PM EDT Radiology Service Progress Note PATIENT NAME: [...] falls during this visit? Instructed Patient to Callfor Help if Needed, Offered Assistance with Transfers/Clothing, and Increased Observations by Caregivers PATIENT GENDER DATA: Male PATIENT RELEVANT IMPLANT DATA REVIEWED: Yes PATIENT PRESENTS WITH AN IMPLANTABLE OR ATTACHED SERVICE ARCHITECT: No RADIOLOGY DEPARTMENT: General X-ray: Exam(s) Completed: Spine X-Ray(s): Cervical AP / LAT / OBL PERIPHERAL IV DATA: Not applicable SIGNED BY: RT Neisha(R) February 01, 2024 3:02 PM documented in this encounterK[facility]10-28-2024 Telephone encounter Note * Telephone Encounter - [place], Brandi, SHRINK PIT OPERATOR - 02/01/2024 11:40 AM EDT Pt message in another encounter. Brandi Lambert LPN [facility]10-28-2024 Miscellaneous Notes* Telephone Encounter - Brandi Lambert LPN - 02/01/2024 11:40 AM EDT Pt message in another encounter. Brandi Lambert LPN documented in this encounterKet[facility]10-28-2024 Telephone encounter Note * Telephone Encounter - Brandi Lambert LPN - 02/01/2024 11:29 AM EDT Pt calls to report this mornings bp [...] that he will be done with [facility] on 04/05 so he can get these tests done know for free. Pt also wanted to let provider know that he is not taking Cymbalta because he was having fatigue and anxiety. Since stopping med pt reports those sx have gotten better. Brandi Lambert LPN [facility]10-28-2024 Miscellaneous Notes* Telephone Encounter - Brandi Lambert LPN - 02/01/2024 11:29 AM EDT Pt calls to report this mornings bp [...] that he will be done with [facility] on 04/05 so he can get these tests done know for free. Pt also wanted to let provider know that he is not taking Cymbalta because he was having fatigue and anxiety. Since stopping med pt reports those sx have gotten better. Brandi Lambert LPN documented in this encounterK[facility]10-28-2024 Telephone encounter Note * Telephone Encounter - Zeny Lam APRN.CNP - 02/01/2024 7:15 AM EDT Sent. [facility]10-28-2024 Miscellaneous Notes* Telephone Encounter - Zeny Lam APRN.CNP - 02/01/2024 7:15 AM EDT Sent. * Telephone Encounter - Gabby Rm LPN - 01/29/2024 4:17 PM EDT PATIENT NOTIFIED OF SAME. Is ok with starting the nifedipine. * Telephone Encounter - Zeny Lam APRN.CNP - 01/29/2024 3:39 PM EDT Let him know that unfortunately we sometimes don't have a great specific reason to pin point why the blood pressure has decided not to cooperate. I do agree, the ativan can reduce bp, so can medications like the percocet. 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 I would recommend we start another daily option to better control the bp, would recommend we start nifedipine daily in addition to his olmesartan and then okay to still use the clonidine as needed to bring down bp if having episodes ofelevation. * Telephone Encounter - Tala Torres LPN - 01/29/2024 2:51 PM EDT Took my blood pressure about 11 am. [...] of Clonidine helps but it's not a retirement solution, I believe. Also, the creaking in my neck continues and I'm still getting the staccato like intermittent rushing feeling in my head. Which is very odd. Please let me know what you think. Rich Patient calling asking to make sure his my chart message was sent to Zeny Lam today if possible. documented in this encounterK[facility]10-25-2024 Telephone encounter Note * Telephone Encounter - Gabby Rm LPN - 01/29/2024 4:17 PM EDT PATIENT NOTIFIED OF SAME. Is ok with starting the nifedipine. [facility]10-25-2024 Telephone encounter Note* Telephone Encounter - Zeny Lam APRN.KAYLA - 01/29/2024 3:39 PM EDT Let him know that unfortunately we sometimes don't have a great specific reason to pin point why the blood pressure has decided not to cooperate. I do agree, the ativan can reduce bp, so can medications like the percocet. Okay to use the clonidine as needed but I agree too, it is not an ideal retirement solution because of needing to take it several times a day. I would recommend we start another daily option to better control the bp, would recommend we start nifedipine daily in addition to his olmesartan and then okay to still use the clonidine as needed to bring down bp if having episodes ofelevation. [facility]10-25-2024 Telephone encounter Note* Telephone Encounter - Tala Torres LPN - 01/29/2024 2:53 PM EDT Converted to a phone message, closing this. [facility]10-25-2024 Miscellaneous Notes* Telephone Encounter - Tala Torres LPN - 01/29/2024 2:53 PM EDT Converted to a phone message, closing this. documented in this encounterK[facility]10-25-2024 Telephone encounter Note * Telephone Encounter - Tala Torres LPN - 01/29/2024 2:51 PM EDT Took my blood pressure about 11 am. [...] of Clonidine helps but it's not a retirement solution, I believe. Also, the creaking in my neck continues and I'm still getting the staccato like intermittent rushing feeling in my head. Which is very odd. Please let me know what you think. Rich Patient calling asking to make sure his my chart message was sent to Zeny Lam today if possible. [facility]10-24-2024 Telephone encounter Note* Telephone Encounter - Alvin He RN - 01/28/2024 2:12 PM EDT Patient phoned to check for reply. Given [...] reading 2 min later, which was 135/77 (71).Reports he only feels about 20% better than he did this morning when he called in. Patient plans totake another clonidine at bedtime if needed after checks his BP. Patient wants Zeny to know he appreciates you getting back to him so quickly. [facility]10-24-2024 Miscellaneous Notes* Telephone Encounter - Alvin He RN - 01/28/2024 2:12 PM EDT Patient phoned to check for reply. Given [...] reading 2 min later, which was 135/77 (71).Reports he only feels about 20% better than he did this morning when he called in. Patient plans totake another clonidine at bedtime if needed after checks his BP. Patient wants Zeny to know he appreciates you getting back to him so quickly. * Telephone Encounter - Zeny Lam APRN.CNP - 01/28/2024 10:59 AM EDT Please see if feeling improvement since taking the clonidine, since it has been about 30 minutes since the dose see if he can repeat his blood pressure while on the phone. He has the option of repeating another dose of clonidine if bp continues to be elevated (I would separate doses by at least 2-3hours before repeating). * Telephone Encounter - Tala Torres LPN - 01/28/2024 10:46 AM EDT Patient calling his blood pressure taken at 1030 am was 175/94 was 2 hours after taking his Olmesartan 40 mg. He said he feels wind rushing in his head, he is light headed. He took his Clonidine 0.1 mg 2 tablets 5 minutes later. Patient asking what do you want him to do? Please advise documented in this encounterK[facility]10-24-2024 Telephone encounter Note * Telephone Encounter - Zeny Lam APRN.CNP - 01/28/2024 10:59 AM EDT Please see if feeling improvement since taking the clonidine, since it has been about 30 minutes since the dose see if he can repeat his blood pressure while on the phone. He has the option of repeating another dose of clonidine if bp continues to be elevated (I would separate doses by at least 2-3hours before repeating). [facility]10-24-2024 Telephone encounter Note* Telephone Encounter - Tala Torres LPN - 01/28/2024 10:46 AM EDT Patient calling his blood pressure taken at 1030 am was 175/94 was 2 hours after taking his Olmesartan 40 mg. He said he feels wind rushing in his head, he is light headed. He took his Clonidine 0.1 mg 2 tablets 5 minutes later. Patient asking what do you want him to do? Please advise [facility]10-22-2024 Telephone encounter Note* Telephone Encounter - Zeny Lam APRN.CNP - 01/26/2024 4:21 PM EDT Noted, I think those numbers are good, goal is to be less than 140 for SBP and 80 or less for DBP. [facility]10-22-2024 Miscellaneous Notes* Telephone Encounter - Zeny Lam APRN.CNP - 01/26/2024 4:21 PM EDT Noted, I think those numbers are good, goal is to be less than 140 for SBP and 80 or less for DBP. * Telephone Encounter - Lizz Smith MA - 01/26/2024 3:52 PM EDT Pt notified and voiced understanding regarding coumadin. [...] BP that is 136/76? Lizz Smith MA * Telephone Encounter - Zeny Lam APRN.CNP - 01/26/2024 3:36 PM EDT Please let him know INR back and stable at 2.4, continue current dose and okay to repeat INR 2 weeks. I'm glad bp is doing better with the changes we made. * Telephone Encounter - Corrina Velarde LPN - 01/26/2024 2:46 PM EDT Last INR: 01/26/24 2.4 Current dose of coumadin: alternates 5mg & 7.5mg daily Previous INR (date & result): 2.5 on 01/12/24 Additional clinical information or narrative: No alcohol, no antibiotics, no changes in diet, no unusual bleeding or bruising, no missed doses. Started omesartan 01/20/24. Will check INR in 2 wks unless notified differently. Corrina Velarde LPN * Telephone Encounter - Corrina Velarde LPN - 01/26/2024 10:32 AM EDT Pt calling to report since starting olmesartan [...] chart. Corrina Velarde LPN documented in this encounterK[facility]10-22-2024 Telephone encounter Note * Telephone Encounter - Lizz Smith MA - 01/26/2024 3:52 PM EDT Pt notified and voiced understanding regarding coumadin. [...] BP that is 136/76? Lizz Smith MA [facility]10-22-2024 Telephone encounter Note* Telephone Encounter - Zeny Lam APRN.KAYLA - 01/26/2024 3:36 PM EDT Please let him know INR back and stable at 2.4, continue current dose and okay to repeat INR 2 weeks. I'm glad bp is doing better with the changes we made. [facility]10-22-2024 Telephone encounter Note* Telephone Encounter - Corrina Velarde LPN - 01/26/2024 2:46 PM EDT Last INR: 01/26/24 2.4 Current dose of coumadin: alternates 5mg & 7.5mg daily Previous INR (date & result): 2.5 on 01/12/24 Additional clinical information or narrative: No alcohol, no antibiotics, no changes in diet, no unusual bleeding or bruising, no missed doses. Started omesartan 01/20/24. Will check INR in 2 wks unless notified differently. Corrina Velarde LPN [facility]10-22-2024 Telephone encounter Note* Telephone Encounter - Corrina Velarde LPN - 01/26/2024 10:32 AM EDT Pt calling to report since starting olmesartan [...] added to his chart. Corrina Velarde LPN [facility]10-16-2024 Instructions* Patient Instructions* Zeny Lam APRN.THEATRICAL AGENT - 01/20/2024 1:33 PM EDT Switch from [...] a day if needed. documented in this encounterKet[facility]10-16-2024 History of Present illness Narrative* Zeny Lam APRN.KAYLA - 01/20/2024 1:12 PM EDT SUBJECTIVE Alex Brooks is a 78 year old male here today for a check up on his medical problems. Chief Complaint Patient presents with: ED Follow-up: lightheadedness, elevated bp [facility] ER 01/08/24 HPI Alex Brooks is a 78 year old male. He is an established patient. He presents today for followup from being seen in the ER at [facility] on 01/08/2024. He had woke up feeling lightheaded and checked blood pressure and it was elevated. Tried taking home medications and bp did not improve. Went to theER and was treated for the high blood [...] a day. Back Brace (BACK SUPPORT S/M) [facility] [place] as instructed. (Patient not taking: Reported [...] LIST Compression Fracture of L1 Lumbar Vertebra (Formerly [facility]) - 07/15/2023 Sciatic Leg Pain - 07/15/2023 Bilateral Carotid Artery Stenosis - 06/15/2023 Acute Gastritis Without Hemorrhage - 04/20/2023 Spinal Stenosis of Lumbar Region - 09/24/2022 Pad (Peripheral Artery Disease) (Formerly [facility]) - 08/16/2021 Kidney Insufficiency - 04/04/2021 Posterior Vitreous Detachment of Right Eye - 06/19/2020 Age-Related Nuclear Cataract of Right Eye - 06/19/2020 Balance Problem - 03/12/2020 History of Left-Sided Carotid Endarterectomy - 06/10/2019 Colonic Polyp - 11/29/2018 Alf (Current) Use of Anticoagulants - 09/15/2018 Recurrent [...] from today's visit and in agreement with treatmentplan. Questions answered. Agrees to call the office [...] as well as compliance with taking medications. Age- appropriate health preventative measures were discussed. Return if symptoms worsen or fail to improve, for Keep next scheduled appointment.. Zeny Lam APRN-KAYLA documented in this encounterKet[facility]10-08-2024 Telephone encounter Note * Telephone Encounter - Osei Maciel LPN - 01/12/2024 1:29 PM EDT Patient aware and will call and schedule Lab appt. Osei Maciel LPN [facility]10-08-2024 Miscellaneous Notes* Telephone Encounter - Osei Maciel LPN - 01/12/2024 1:29 PM EDT Patient aware and will call and schedule Lab appt. Osei Maciel LPN * Telephone Encounter - Zeny Lam APRN.CNP - 01/12/2024 12:46 PM EDT Okay to continue the coumadin the same with alternating the 5 mg and 7.5 mg doses. Okay to repeat INR in 2 weeks. * Telephone Encounter - Antoinette Meadows RN - 01/12/2024 12:15 PM EDT Last INR: 2.5 05/14/2023 Current dose of [...] now its your turn. Antoinette Meadows RN documented in this encounterK[facility]24 Telephone encounter Note * Telephone Encounter - Zeny Lam APRN.CNP - 01/12/2024 12:46 PM EDT Okay to continue the coumadin the same with alternating the 5 mg and 7.5 mg doses. Okay to repeat INR in 2 weeks. [facility]10-08-2024 Telephone encounter Note* Telephone Encounter - Antoinette Meadows RN - 01/12/2024 12:15 PM EDT Last INR: 2.5 05/14/2023 Current dose of [...] now its your turn. Antoinette Meadows RN [facility]10-07-2024 Telephone encounter Note* Telephone Encounter - Zeny Lam APRN.CNP - 01/11/2024 1:44 PM EDT Yes, okay for the refill, can discuss further with the ER follow up. Refill sent. [facility]10-07-2024 Miscellaneous Notes* Telephone Encounter - Zeny Lam APRN.CNP - 01/11/2024 1:44 PM EDT Yes, okay for the refill, can discuss further with the ER follow up. Refill sent. * Telephone Encounter - Tammie Munguia RN - 01/11/2024 1:00 PM EDT Patient calls and says that he was put on Clonidine 0.1 mg tablets 1-2 tablets TID PRN for systolicblood pressure greater that 165. Patient was only [...] advise, Tammie Munguia RN documented in this encounterK[facility]10-07-2024 Telephone encounter Note * Telephone Encounter - Tammie Munguia RN - 01/11/2024 1:00 PM EDT Patient calls and says that he was put on Clonidine 0.1 mg tablets 1-2 tablets TID PRN for systolicblood pressure greater that 165. Patient was only [...] Please review and advise, Tammie Munguia RN [facility]10-02-2024 History of Present illness Narrative* Zeny Lam, ERIK.THEATRICAL AGENT - 01/06/2024 11:26 AM EDT SUBJECTIVE Alex Brooks is a 78 year old male here today for a check up on his medical problems. Chief Complaint Patient presents with: Fatigue: cold sweats, shortness of breath Abdominal Pain: constipation to diarrhea and small stools in diameter. HPI Alex Brooks is a 78 year old male. Here today for not feeling the greatest. Noticing fatigue,sleeping 12-14 hours a day. This is more [...] mouth once daily. In the morning. In additionto the 30 mg pm dose oxyCODONE-acetaminophen (PERCOCET) [...] mouth once daily. Adjust dose as directed basedon blood pressure readings warfarin (COUMADIN) 5 mg [...] once daily. Back Brace (BACK SUPPORT S/M) [facility] [place] as instructed. (Patient not taking: Reported on 11/16/2023) No current facility-administered medications for this visit. ALLERGIES Allergen Reactions Cyclobenzaprine Other: See Comments Double vision Gabapentin Intolerance Keflex [Cephalexin] Rash ACTIVE PROBLEM LIST Compression Fracture of L1 Lumbar Vertebra (Formerly [facility]) - 07/15/2023 Sciatic Leg Pain - 07/15/2023 Bilateral Carotid Artery Stenosis - 06/15/2023 Acute Gastritis Without Hemorrhage - 04/20/2023 Spinal Stenosis of Lumbar Region - 09/24/2022 Pad (Peripheral Artery Disease) ([facility]) - 08/16/2021 Kidney Insufficiency - 04/04/2021 Posterior Vitreous Detachment of Right Eye - 06/19/2020 Age-Related Nuclear Cataract of Right Eye - 06/19/2020 Balance Problem - 03/12/2020 History of Left-Sided Carotid Endarterectomy - 06/10/2019 Colonic Polyp - 11/29/2018 Health Physicist (Current) Use of Anticoagulants - 09/15/2018 Recurrent [...] from today's visit and in agreement with treatmentplan. Questions answered. Agrees to call the office [...] as well as compliance with taking medications. Age- appropriate health preventative measures were discussed. Return if symptoms worsen or fail to improve, for Keep next scheduled appointment.. Zeny Lam APRN-KAYLA documented in this encounterK[facility]10-[facility]24 Telephone encounter Note * Telephone Encounter - Brandi Lambert LPN - 01/05/2024 12:28 PM EDT Last INR: INR Home CoaguChek 2.3 01/05/2024 Current dose of coumadin is: 12/31 & 01/02 - 5 mg.01/01 & 01/03 - 7.5 mg Last date of dose change: 12/31. Previous INR (date and result): 3.2 Additional Clinical Information or narrative: no Pt notified of provider's message concerning dosing below and recheck date. Brandi Lambert LPN [facility]10-01-2024 Miscellaneous Notes* Telephone Encounter - Brandi Lambert LPN - 01/05/2024 12:28 PM EDT Last INR: INR Home CoaguChek 2.3 01/05/2024 Current dose of coumadin is: 12/31 & 01/02 - 5 mg.01/01 & 01/03 - 7.5 mg Last date of dose change: 12/31. Previous INR (date and result): 3.2 Additional Clinical Information or narrative: no Pt notified of provider's message concerning dosing below and recheck date. Brandi Lambert LPN * Telephone Encounter - Zeny Lam APRN.CNP - 01/05/2024 12:18 PM EDT Please call patient and advise him to continue with current coumadin dosing by taking coumadin 7.5 mg every other day and 5 mg on the other days. Repeat INR in 1 week. documented in this encounterK[facility]10-01-2024 Telephone encounter Note * Telephone Encounter - Zeny Lam APRN.CNP - 01/05/2024 12:18 PM EDT Please call patient and advise him to continue with current coumadin dosing by taking coumadin 7.5 mg every other day and 5 mg on the other days. Repeat INR in 1 week. [facility]09-27-2024 Telephone encounter Note* Telephone Encounter - Gabby Rm LPN - 01/01/2024 3:16 PM EDT PATIENT NOTIFIED OF SAME. Tracker updated. [facility]09-27-2024 Miscellaneous Notes* Telephone Encounter - Gabby Rm LPN - 01/01/2024 3:16 PM EDT PATIENT NOTIFIED OF SAME. Tracker updated. * Telephone Encounter - Zeny Lam APRN.CNP - 01/01/2024 2:21 PM EDT Please have him reduce his dose to taking coumadin 7.5 mg every other day and 5 mg on the other days, recommend he take the 5 mg today, 7.5 on sat, 5 on thu, 7.5 on Thursday and then repeat INR on Thursday. * Telephone Encounter - Alvin He RN - 01/01/2024 12:28 PM EDT Last INR: INR Home CoaguChek 3.2 01/01/2024 Current dose of coumadin is: 10 mg MTWTh, check INR today (Thu). Last date of dose change: 12-28-23 Previous INR (date and result): 1.3, 12-28-23 Additional Clinical Information or narrative: yes: No alcohol, no antibiotics, no changes in diet, no unusual bleeding or bruising, no missed doses. documented in this encounterK[facility]09-27-2024 Telephone encounter Note * Telephone Encounter - Zeny Lam APRN.CNP - 01/01/2024 2:21 PM EDT Please have him reduce his dose to taking coumadin 7.5 mg every other day and 5 mg on the other days, recommend he take the 5 mg today, 7.5 on thu, 5 on thu, 7.5 on Thursday and then repeat INR on Thursday. [facility]09-27-2024 Telephone encounter Note* Telephone Encounter - Alvin He RN - 01/01/2024 12:28 PM EDT Last INR: INR Home CoaguChek 3.2 01/01/2024 Current dose of coumadin is: 10 mg MTWTh, check INR today (Thu). Last date of dose change: 12-28-23 Previous INR (date and result): 1.3, 12-28-23 Additional Clinical Information or narrative: yes: No alcohol, no antibiotics, no changes in diet, no unusual bleeding or bruising, no missed doses. [facility]09-23-2024 Telephone encounter Note* Telephone Encounter - Gabby Rm LPN - 12/28/2023 2:39 PM EDT Prescription Refill Information The patient has been [...] Rm LPN December 28, 2023 2:40 PM [facility]09-23-2024 Miscellaneous Notes* Telephone Encounter - Gabby Rm LPN - 12/28/2023 2:39 PM EDT Prescription Refill Information The patient has been [...] 28, 2023 2:40 PM documented in this encounterKet[facility]09-23-2024 Telephone encounter Note * Telephone Encounter - Cyndy Whelan RN - 12/28/2023 2:38 PM EDT Pt called and is notified of providers results and instructions. Pt voices understanding. Cyndy Whelan RN [facility]09-23-2024 Miscellaneous Notes* Telephone Encounter - Cyndy Whelan RN - 12/28/2023 2:38 PM EDT Pt called and is notified of providers results and instructions. Pt voices understanding. Cyndy Whelan RN * Telephone Encounter - Zeny Lam APRN.CNP - 12/28/2023 2:27 PM EDT Please call and have Rich take 10 mg of coumadin today, tomorrow, Thursday and and repeatINR on Thursday because of level being so low at 1.3. * Telephone Encounter - Molly Ann RN - 12/28/2023 12:46 PM EDT Last INR: INR 1.3 12/28/2023 Current dose of coumadin is: 7.5 mg Thu/Thu/Thu/Sat/Sun 5 mg / Last date of dose change: 12/21/23 Previous INR (date and result): INR 1.5 12/21/23 Additional Clinical Information or narrative: NO documented in this encounterK[facility]09-23-2024 Telephone encounter Note * Telephone Encounter - Zeny Lam APRN.CNP - 12/28/2023 2:27 PM EDT Please call and have Rich take 10 mg of coumadin today, tomorrow, Thursday and and repeatINR on Thursday because of level being so low at 1.3. [facility]09-23-2024 Telephone encounter Note* Telephone Encounter - Molly Ann RN - 12/28/2023 12:46 PM EDT Last INR: INR 1.3 12/28/2023 Current dose of coumadin is: 7.5 mg Thu/Thu/Thu/Sat/Sun 5 mg / Last date of dose change: 12/21/23 Previous INR (date and result): INR 1.5 12/21/23 Additional Clinical Information or narrative: NO [facility]09-16-2024 Telephone encounter Note* Telephone Encounter - Gabby Rm LPN - 12/21/2023 1:08 PM EDT PATIENT NOTIFIED OF SAME. Tracker updated [facility]09-16-2024 Miscellaneous Notes* Telephone Encounter - Gabby Rm LPN - 12/21/2023 1:08 PM EDT PATIENT NOTIFIED OF SAME. Tracker updated * Telephone Encounter - Zeny Lam APRN.CNP - 12/21/2023 12:54 PM EDT I would recommend he resume his prior dosing of coumadin that he had been taking prior to his dental procedure and then repeat the INR in 1 week to ensure getting back in to desired range. * Telephone Encounter - Cyndy Whelan RN - 12/21/2023 12:49 PM EDT Last INR: INR Home CoaguChek 1.5 12/21/2023 Current dose of coumadin is: 5 mg every e, Rdoy; 7.5 mg all other days . (Pt help Coumadin for 6 day due to tooth extraction restarted on Thursday) Last date of dose change: 10/23/23. Previous INR (date and result): 3.0, 12/08/23. Additional Clinical Information or narrative: yes: Pt states he was off of Coumadin for 6 days because he had a tooth extracted. Pt states he took 7.5 mg Fri/Sat/Sun/Mon. documented in this encounterK[facility]09-16-2024 Telephone encounter Note * Telephone Encounter - Zeny Lam APRN.CNP - 12/21/2023 12:54 PM EDT I would recommend he resume his prior dosing of coumadin that he had been taking prior to his dental procedure and then repeat the INR in 1 week to ensure getting back in to desired range. [facility]09-16-2024 Telephone encounter Note* Telephone Encounter - Cyndy Whelan RN - 12/21/2023 12:49 PM EDT Last INR: INR Home CoaguChek 1.5 12/21/2023 [...] extracted. Pt states he took 7.5 mg Fri/Sat/Sun/Mon. [facility]09-09-2024 History of Present illness Narrative* Zeny Lam APRN.CNP - 12/14/2023 1:44 PM EDT SUBJECTIVE Alex Brooks is a 78 year [...] Since back has been feeling better he noteshis blood pressure has seemed more labile. He [...] mouth once daily. Adjust dose as directed basedon blood pressure readings warfarin (COUMADIN) 5 mg [...] two times a day. 500mg daily) EMANUEL DALEY ORAL Take 400 mg by mouth twice [...] 7 days. Back Brace (BACK SUPPORT S/M) [facility] Use as instructed. (Patient not taking: Reported on 11/16/2023) No current facility-administered medications for this visit. ALLERGIES Allergen Reactions Cyclobenzaprine Other: See Comments Double vision Gabapentin Intolerance Keflex [Cephalexin] Rash ACTIVE PROBLEM LIST Compression Fracture of L1 Lumbar Vertebra (Former[facility]) - 07/15/2023 Sciatic Leg Pain - 07/15/2023 Bilateral Carotid Artery Stenosis - 06/15/2023 Acute Gastritis Without Hemorrhage - 04/20/2023 Spinal Stenosis of Lumbar Region - 09/24/2022 Pad (Peripheral Artery Disease) (Former[facility]) - 08/16/2021 Kidney Insufficiency - 04/04/2021 Posterior Vitreous Detachment of Right Eye - 06/19/2020 Age-Related Nuclear Cataract of Right Eye - 06/19/2020 Balance Problem - 03/12/2020 History of Left-Sided Carotid Endarterectomy - 06/10/2019 Colonic Polyp - 11/29/2018 Alf (Current) Use of Anticoagulants - 09/15/2018 Recurrent Pulmonary Embolism (Formerly [facility]) - 05/08/2014 Comment: 1st episode 2009, 2nd [...] G89.29 - OXYCODONE-ACETAMINOPHEN 5 MG-325 MG TABLET PDMP website checked and validated. All prescriptions have been APPROPRIATELY filled. No suspiciousactivity was identified. 12/14/2023 by Zeny Lam APRN.CNP [...] from today's visit and in agreement with treatmentplan. Questions answered. Agrees to call the office [...] as well as compliance with taking medications. Age- appropriate health preventative measures were discussed. No follow-ups on file. Zeny Lam APRN-KAYLA documented in this encounterK[facility]09-[facility]-2024 Telephone encounter Note * Telephone Encounter - Haydee Lee LPN - 12/10/2023 4:52 PM EDT Health Maintenance updated. [facility]09-05-2024 Miscellaneous Notes* Telephone Encounter - Haydee Lee LPN - 12/10/2023 4:52 PM EDT Health Maintenance updated. * Telephone Encounter - Molly Ann RN - 12/10/2023 4:20 PM EDT Patient calling to say he received his COVID booster (Moderna) at [facility] today. Molly Ann RN documented in this encounterK[facility]09-05-2024 Telephone encounter Note * Telephone Encounter - Molly Ann RN - 12/10/2023 4:20 PM EDT Patient calling to say he received his COVID booster (Moderna) at [facility] today. Molly Ann RN [facility]09-03-2024 Telephone encounter Note* Telephone Encounter - Maribel Oden LPN - 12/08/2023 2:26 PM EDT Spoke with pt and information listed below given. Pt verbalizes understanding. Tracker updated. Transferred to senior scheduler to get lab apt booked for 12-18-23. Maribel Oden LPN [facility]09-03-2024 Miscellaneous Notes* Telephone Encounter - Maribel Oden LPN - 12/08/2023 2:26 PM EDT Spoke with pt and information listed below given. Pt verbalizes understanding. Tracker updated. Transferred to senior scheduler to get lab apt booked for 12-18-23. Maribel Oden LPN * Telephone Encounter - Gabby Rm LPN - 12/08/2023 2:16 PM EDT LEFT MESSAGE FOR PATIENT TO CALL OFFICE. * Telephone Encounter - Zeny Lam APRN.CNP - 12/08/2023 12:39 PM EDT Since he still is in the goal parameters of 2-3 for INR we can continue current dose of the coumadin, but preference would be to repeat INR in 10 days instead of 2 weeks to ensure it is not increasing further. * Telephone Encounter - Brandi Lambert LPN - 12/08/2023 12:18 PM EDT Last INR: INR Home CoaguChek 3.0 12/08/2023 [...] INR. Brandi Lambert LPN documented in this encounterK[facility]09-03-2024 Telephone encounter Note * Telephone Encounter - Gabby Rm LPN - 12/08/2023 2:16 PM EDT LEFT MESSAGE FOR PATIENT TO CALL OFFICE. [facility]09-03-2024 Telephone encounter Note* Telephone Encounter - Zeny Lam APRN.CNP - 12/08/2023 12:39 PM EDT Since he still is in the goal parameters of 2-3 for INR we can continue current dose of the coumadin, but preference would be to repeat INR in 10 days instead of 2 weeks to ensure it is not increasing further. [facility]09-03-2024 Telephone encounter Note* Telephone Encounter - Brandi Lambert LPN - 12/08/2023 12:18 PM EDT Last INR: INR Home CoaguChek 3.0 12/08/2023 [...] that increased his INR. Brandi Lambert LPN [facility]09-03-2024 Telephone encounter Note* Telephone Encounter - Zeny Lam APRN.CNP - 12/08/2023 12:10 PM EDT PDMP website checked and validated. All prescriptions have been APPROPRIATELY filled. No suspiciousactivity was identified. 12/08/2023 by Zeny Lam APRN.CNP [facility]09-03-2024 Miscellaneous Notes* Telephone Encounter - Zeny Lam APRN.CNP - 12/08/2023 12:10 PM EDT [facility]. All prescriptions have been APPROPRIATELY filled. No suspiciousactivity was identified. 12/08/2023 by Zeny Lam APRN.CNP * Telephone Encounter - Celia Negrete LPN - 12/08/2023 10:36 AM EDT Prescription Refill Information The patient has been [...] 08, 2023 10:36 AM documented in this encounterKettering [facility]09-03-2024 Telephone encounter Note * Telephone Encounter - Celia Negrete LPN - 12/08/2023 10:36 AM EDT Prescription Refill Information The patient has been [...] Negrete LPN December 08, 2023 10:36 AM [facility]08-28-2024 Telephone encounter Note* Telephone Encounter - Molly Ann RN - 12/02/2023 1:17 PM EDT Prescription Refill Information The patient has been [...] RN December 02, 2023 1:19 PM s [facility]08-28-2024 Miscellaneous Notes* Telephone Encounter - Molly Ann RN - 12/02/2023 1:17 PM EDT Prescription Refill Information The patient has been [...] 2023 1:19 PM s documented in this encounterKet[facility]08-20-2024 Telephone encounter Note * Telephone Encounter - Tammie Munguia RN - 11/24/2023 1:18 PM EDT Patient notified of results and provider's instructions. Patient verbalizes understanding. Tammie Munguia RN [facility]08-20-2024 Miscellaneous Notes* Telephone Encounter - Tammie Munguia RN - 11/24/2023 1:18 PM EDT Patient notified of results and provider's instructions. Patient verbalizes understanding. Tammie Munguia RN * Telephone Encounter - Zeny Lam APRN.CNP - 11/24/2023 12:51 PM EDT INR is 2.4, continue on current dose of coumadin and repeat INR in 2 weeks. Let me know if any questions or concerns. Thanks! Zeny Lam APRN.CNP documented in this encounterKet[facility]08-20-2024 Telephone encounter Note * Telephone Encounter - Zeny Lam APRN.CNP - 11/24/2023 12:51 PM EDT INR is 2.4, continue on current dose of coumadin and repeat INR in 2 weeks. Let me know if any questions or concerns. Thanks! Zeny Lam APRN.CNP [facility]08-19-2024 Telephone encounter Note* Telephone Encounter - Alvin He RN - 11/23/2023 1:41 PM EDT Patient phoned checking to see if the x-tra 4 sessions were approved from [employer] yet. Advised per chart, it does not appear we have received approval letter at this time. Advised letter was faxed [employer] on 11-20-23. Patient agreeable. [facility]08-19-2024 Miscellaneous Notes* Telephone Encounter - Alvin He RN - 11/23/2023 1:41 PM EDT Patient phoned checking to see if the x-tra 4 sessions were approved from [employer] yet. Advised per chart, it does not appear we have received approval letter at this time. Advised letter was faxed [employer] on 11-20-23. Patient agreeable. documented in this encounterK[facility]08-13-2024 Telephone encounter Note * Telephone Encounter - Zeny Lam APRN.CNP - 11/17/2023 10:58 AM EDT [facility]08-13-2024 Telephone encounter Note* Telephone Encounter - Zeny Lam APRN.CNP - 11/17/2023 10:58 AM EDT See other encounter regarding this. [facility]08-13-2024 Miscellaneous Notes* Telephone Encounter - Zeny Lam APRN.CNP - 11/17/2023 10:58 AM EDT See other encounter regarding this. documented in this encounterK[facility]08-13-2024 Miscellaneous Notes* Telephone Encounter - Zeny Lam APRN.CNP - 11/17/2023 10:58 AM EDT documented in this encounterKet[facility]08-12-2024 Instructions* Patient Instructions* Micah Portillo APRN.CNP, DNP - 11/16/2023 1:53 PM EDT Follow up with Micah Portillo APRN.CNP, DNP in 1 year Continue to monitor urinary [...] Micah Portillo APRN.CARA GARZA documented in this encounterKet[facility]08-12-2024 History of Present illness Narrative* Emerald Hunt LPN - 11/16/2023 1:17 PM EDT Verified name and date of . CC Post Void Residual HPI: Elizabeth radhagin is here now for an appointment with Lindsey Obrien APRN, DNP Procedure: Explained procedure to patient and verbalizes understanding. Performed a PVR. Patient urinated and instructed to empty bladder as much as possible just prior to having PVR done using bladder ultrasound scanner. Results of scan: 0 mL The patient tolerated the procedure well. Plan: Appointment with Micah. * Micah Portillo APRN.CARA GARZA - 11/16/2023 12:42 PM EDT [facility] PATIENT - HISTORY AND PHYSICAL EXAMINATION PATIENT: Alex Brooks (77 year old) 08/10/2023 PCP: Zeny Lam APRN.CNP CHIEF COMPLAINT: BPH/LUTS follow up appt HISTORY OF PRESENT ILLNESS: 78 year old year old male with BPH/LUTS here for follow up appt. Was having worsening urinary symptoms. NTF 3x4 most bothersome. Previously seen Dr. Zhao in 2018 for slightly rising PSA. PSA returned to normal. Was on Saw [place] - did not notice any difference. Restarted taking Saw [place] 400mgs. Started on Flomax at last appt. [...] to knees, as of 2008 --- in [place], neurologist thought related to alcohol; Has had [...] mouth once daily. Adjust dose as directed basedon blood pressure readings LORazepam (ATIVAN) 2 mg [...] (BACK SUPPORT S/M) misc Use as instructed. (Patient not taking: Reported [...] which included preparing to see the patient, [id number] patient care, completing clinical documentation, performing a medically appropriate examination, counseling and educating the patient/family/caregiver and ordering medications, tests, or procedures. This note was copied from previous note and exam dated 08/10/23. Author is Micah Portillo APRN.CARA GARZAnotmaria alejandra reviewed and changes have been made or updates noted in the copy & paste portion of an encounter. Micah Portillo DNP, KAYLA Department of Urology [facility] documented in this encounterK[facility]08-08-2024 NoteHNO ID: [id number] Author: WALT YANG R Ac Service: ? [...] reducing alcohol intake. He was living in [facility] since he was born and moved to [place] for job-related which he regret as business environment and living was not the same. About 10 year ago, he moved to [place] and that was when he started experiencing exacerbation of all the condition. 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 No diabetes Coumadin [facility] [address] [facility] [address] Dept: [phone] Alex Brooks : 1945 [place] [facility] [employer] Acupuncture Intake Form (For Patient Review Regarding Diagnostic Exam) I have received a diagnostic exam by physician or chiropractor within the last six months regarding the condition for which I am seeking treatment. Patient Signature: Alex Brooks Date: 11/12/23 Special Distribution Clerk Signature: Walt Yang Lac. Date: 11/12/23 The patient's history is well detailed in the EMR. Current view: Showing all answers [employer] Additional Demo Question 11/05/2023 10:20 AM EDT - Filed by Patient Is this visit related to an accident, other than Workers' Compensation? No Is this visit related to Workers' Compensation? No Do you need an mumps developer? No [facility] [employer] V2.0-Physical Function-28 Days [...] explain: I had recent (more content not included)...[id number] History of Present illness Narrative* Walt Yang R Ac - 11/12/2023 12:58 PM EDT Images from the original note were not included. Alex Brooks a 78 year old male presents to the acupuncture clinic on 11/12/23 for an initial consultation. 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 He was living in [facility] since he was born and moved to [place] for job-related which he regret as business environmentand living was not the same. About 10 year ago, he moved to [place] and that was when he started experiencing exacerbation of all the condition. 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 No diabetes Coumadin [facility] [address] [facility] [address] Dept: [phone] Alex Brooks : 1945 [facility] Acupuncture Intake Form (For Patient Review Regarding Diagnostic Exam) I have received a diagnostic exam by physician or chiropractor within the last six months regardingthe condition for which I am seeking treatment. Patient Signature: Alex Brooks Date: 11/12/23 Special Distribution Clerk Signature: Walt Yang Lac. Date: 11/12/23 The patient's history is well detailed in the EMR. Current view: Showing all answers [facility] Mychart Additional Demo Question 11/05/2023 10:20 AM EDT - Filed by Patient Is this visit related to an accident, other than Workers' Compensation? No Is this visit related to Workers' Compensation? No Do you need an mumps developer? No [facility] Promis Cat V2.0-Physical Function-28 Days Question 11/05/2023 10:21 AM EDT - Filed by Patient 08/20/2023 9:34 AM EDT - Filed by Patient 45:31 AM EDT - Filed by Patient PROMIS [...] to face with patient for set 2 [facility] were retained for 30 minutes # of [...] face time spent with patient Acupuncture and Guyanese herbal therapy are not a substitute for [...] for which patient is seeking treatment, the Special Distribution Clerk, per [place] Law, recommends that this diagnostic exam be performed. documented in this encounterK[facility] Telephone encounter Note * Telephone Encounter - Haydee Lee LPN - 11/10/2023 4:27 PM EDT Patient notified of coumadin instructions and verbalized understanding. [facility]08-06-2024 Miscellaneous Notes* Telephone Encounter - Haydee Lee LPN - 11/10/2023 4:27 PM EDT Patient notified of coumadin instructions and verbalized understanding. * Telephone Encounter - Bonnie Sharif APRN.CNS - 11/10/2023 3:31 PM EDT Continue with Coumadin dosage change recheck INR and check INR 2 weeks * Telephone Encounter - Maribel Oden LPN - 11/10/2023 2:10 PM EDT Last INR: INR Home CoaguChek 2.5 11/10/2023 [...] on pt's phone instructions. documented in this encounterK[facility]08-06-2024 Telephone encounter Note * Telephone Encounter - Bonnie Sharif APRN.CNS - 11/10/2023 3:31 PM EDT Continue with Coumadin dosage change recheck INR and check INR 2 weeks [facility] Work Phone: 1(453) 940-837808-06-2024 Telephone encounter Note* Telephone Encounter - Maribel Oden LPN - 11/10/2023 2:10 PM EDT Last INR: INR Home CoaguChek 2.5 11/10/2023 [...] a detailed message on pt's phone instructions. [facility]07-26-2024 Telephone encounter Note* Telephone Encounter - Gabby Rm LPN - 10/30/2023 2:56 PM EDT PATIENT NOTIFIED OF SAME. [facility]-26-2024 Miscellaneous Notes* Telephone Encounter - Gabby Rm LPN - 10/30/2023 2:56 PM EDT PATIENT NOTIFIED OF SAME. * Telephone Encounter - Zeny Lam APRN.CNP - 10/30/2023 2:30 PM EDT Continue with current dose of coumadin and repeat INR in 10 days. * Telephone Encounter - Corrina Whipple - 10/30/2023 12:30 PM EDT Patient called to give results of INR from today 10/29 INR is 2.0 Coumadine dose is 7.5mg everyday but Tue and Thur 5mg He also said he has not drank much wine lately Please advise documented in this encounterK[facility]07-26-2024 Telephone encounter Note * Telephone Encounter - Zeny Lam APRN.CNP - 10/30/2023 2:30 PM EDT Continue with current dose of coumadin and repeat INR in 10 days. [facility]-26-[facility]24 Telephone encounter Note* Telephone Encounter - Corrina Whipple - 10/30/2023 12:30 PM EDT Patient called to give results of INR from today 10/29 INR is 2.0 Coumadine dose is 7.5mg everyday but Tue and Thur 5mg He also said he has not drank much wine lately Please advise [facility] Work Phone: [phone]) 729-746407-25-2024 Telephone encounter Note* Telephone Encounter - Antoinette Meadows RN - 10/29/2023 3:27 PM EDT The patient has been identified by name [...] Meadows RN October 29, 2023 3:28 PM [facility]07-25-2024 Miscellaneous Notes* Telephone Encounter - Antoinette Meadows RN - 10/29/2023 3:27 PM EDT The patient has been identified by name [...] 29, 2023 3:28 PM documented in this encounterK[facility]07-19-2024 Telephone encounter Note * Telephone Encounter - Gabby Rm LPN - 10/23/2023 1:08 PM EDT PATIENT NOTIFIED OF SAME. Tracker has been updated. [facility]07-19-2024 Miscellaneous Notes* Telephone Encounter - Gabby Rm LPN - 10/23/2023 1:08 PM EDT PATIENT NOTIFIED OF SAME. Tracker has been updated. * Telephone Encounter - Zeny Lam APRN.CNP - 10/23/2023 12:31 PM EDT Have him increase his dose to taking 7.5 mg on Thu, THU, Thu, Sat and Sun and then the 5 mg only onT and Th., typically duloxetine would make the INR run a little higher but I suspect him cutting out some of the other medications has resulted in the INR drifting down. Have him repeat his INRin 1 week. * Telephone Encounter - Graciela Parker RN - 10/23/2023 12:08 PM EDT Patient calling with message for Zeny Lam [...] advise patient. Thank you. documented in this encounterK[facility]07-19-2024 Telephone encounter Note * Telephone Encounter - Zeny Lam APRN.CNP - 10/23/2023 12:31 PM EDT Have him increase his dose to taking 7.5 mg on Mon, THU, Thu, Sat and Sun and then the 5 mg only onT and Th., typically duloxetine would make the INR run a little higher but I suspect him cutting out some of the other medications has resulted in the INR drifting down. Have him repeat his INRin 1 week. [facility]07-19-2024 Telephone encounter Note* Telephone Encounter - Graciela Parker RN - 10/23/2023 12:08 PM EDT Patient calling with message for Zeny Lam CNP: Patient states he noted today's INR result of 1.7. Reports he has been taking Coumadin 7.5 mg on 4 days a week (Fri, Sat, Sun, and Mon) then 5 mg other days (Tu, Thu, Th). No unusual bleeding or bruising, no diet changes, no recent antibiotic use. Had wine on 10/19/23. Patient states he has noticed a trend of his INR decreasing and wonders if it has anything to do with the duloxetine he takes? He feels his coumadin needs increased also. Please advise patient. Thank you. [facility]07-02-2024 Telephone encounter Note* Telephone Encounter - Tammie Munguia RN - 10/06/2023 4:47 PM EDT The patient has been identified by name [...] Munguia RN October 06, 2023 4:48 PM [facility]07-02-2024 Miscellaneous Notes* Telephone Encounter - Tammie Munguia RN - 10/06/2023 4:47 PM EDT The patient has been identified by name [...] 06, 2023 4:48 PM documented in this encounterKet[facility]07-01-2024 Telephone encounter Note * Telephone Encounter - Ramila Zapata LPN - 10/05/2023 1:17 PM EDT Patient notified of results, verbalizes understanding of instructions. Ramila Zapata LPN [facility]07-01-2024 Miscellaneous Notes* Telephone Encounter - Ramila Zapata LPN - 10/05/2023 1:17 PM EDT Patient notified of results, verbalizes understanding of instructions. Ramila Zapata LPN * Telephone Encounter - Zeny Lam APRN.CNP - 10/05/2023 12:20 PM EDT Okay to increase coumadin dose to 7.5 mg on 4 days a week (Thu, Sat, Thu, and Mon) then 5 mg other days (, Thu, ). Repeat INR in 2 weeks. * Telephone Encounter - Tammie Munguia RN - 10/05/2023 11:15 AM EDT Last INR: INR Home CoaguChek 1.9 10/05/2023 [...] mg on Thursday, Thursday, and Thursday. Patient askingif provider thinks Coumadin should be increased to 7.5 on another day? Patient reports that he has had no missed doses. Patient has had no alcohol and no diet changes. Patient has not signs or symptoms of bleeding or bruising. Please review and advise, Tammie Munguia RN documented in this encounterK[facility]07-01-2024 Telephone encounter Note * Telephone Encounter - Zeny Lam APRN.CNP - 10/05/2023 12:20 PM EDT Okay to increase coumadin dose to 7.5 mg on 4 days a week (Thu, Sat, Thu, and Mon) then 5 mg other days (, Thu, ). Repeat INR in 2 weeks. [facility]07-01-2024 Telephone encounter Note* Telephone Encounter - Tammie Munguia RN - 10/05/2023 11:15 AM EDT Last INR: INR Home CoaguChek 1.9 10/05/2023 [...] mg on Thursday, Thursday, and Thursday. Patient askingif provider thinks Coumadin should be increased to 7.5 on another day? Patient reports that he has had no missed doses. Patient has had no alcohol and no diet changes. Patient has not signs or symptoms of bleeding or bruising. Please review and advise, Tammie Munguia RN [facility]06-21-2024 Telephone encounter Note* Telephone Encounter - Lor Patel - 09/25/2023 2:54 PM EDT Pt stated that [employer] has sent approval for accupunture. He [facility]. Billing keeps giving him the run around. Statesthe exact same thing happened [address] Martinez[address] Pt states Zeny is aware of situation. Patient is asking if Zeny can call [facility]. Number is [phone]. [facility]06-21-2024 Miscellaneous Notes* Telephone Encounter - Lor Patel - 09/25/2023 2:54 PM EDT Pt stated that [employer] has sent approval for accupunture. He states [facility]. Billing keeps giving him the run around. Statesthe exact same thing happened [address] Martinez. Pt states Zeny is aware of situation. Patient is asking if Zeny can call [facility]. Number is [phone]. documented in this encounterK[facility]06-21-2024 Telephone encounter Note * Telephone Encounter - Zeny Lam APRN.CNP - 09/25/2023 7:13 AM EDT Approval received. [facility]2024 Miscellaneous Notes* Telephone Encounter - Zeny Lam APRN.CNP - 09/25/2023 7:13 AM EDT Approval received. * Telephone Encounter - Tala Torres LPN - 09/24/2023 3:18 PM EDT Patient calling wanted to let Zeny know that she should be getting an approval letter for his acupuncture. Patient said not sure if he will be able to have it done, having issues with his insurance. documented in this encounterK[facility]06-20-2024 Telephone encounter Note * Telephone Encounter - Tala Torres LPN - 09/24/2023 3:18 PM EDT Patient calling wanted to let Zeny know that she should be getting an approval letter for his acupuncture. Patient said not sure if he will be able to have it done, having issues with his insurance. [facility]06-19-2024 Telephone encounter Note* Telephone Encounter - Zeny Lam APRN.CNP - 09/23/2023 12:29 PM EDT Noted and agree with same dose and repeat in 2 weeks. [facility]06-19-2024 Miscellaneous Notes* Telephone Encounter - Zeny Lam APRN.CNP - 09/23/2023 12:29 PM EDT Noted and agree with same dose and repeat in 2 weeks. * Telephone Encounter - Antoinette Meadows RN - 09/23/2023 12:20 PM EDT Last INR: INR Home CoaguChek 2.1 09/23/2023 [...] otherwise. Antoinette Meadows RN documented in this encounterKettering [facility]06-19-2024 Telephone encounter Note * Telephone Encounter - Antoinette Meadows RN - 09/23/2023 12:20 PM EDT Last INR: INR Home CoaguChek 2.1 09/23/2023 [...] unless he hears otherwise. Antoinette Meadows, RN [facility]06-18-2024 Telephone encounter Note* Telephone Encounter - Katherine Mckeon OCCA - 09/22/2023 4:16 PM EDT Letter faxed back to [facility] asking them to recheck their records as listed NPI is correct as verified by providers office. YENNY Abdi [facility]06-18-2024 Miscellaneous Notes* Telephone Encounter - Katherine Mckeon OCCA - 09/22/2023 4:16 PM EDT Letter faxed back to [facility] asking them to recheck their records as listed NPI is correct as verified by providers office. YENNY Abdi * Telephone Encounter - Katherine Mckeon OCCA - 09/22/2023 4:03 PM EDT Nurse returned call and stated providers NPI is [id number]. YENNY Abdi * Telephone Encounter - Katherine Mckeon OCCA - 09/22/2023 3:35 PM EDT TC to ALAYNA Chase's office at [phone] with no answer. Left detailed VM for nurse to return call to our office to provide NPI number as requested by insurance. YENNY Abdi * Telephone Encounter - Zeny Lam APRN.THEATRICAL AGENT - 09/22/2023 12:12 PM EDT Rich is trying to get acupuncture approved through his insurance, they are requesting the NPI for the provider performing the procedure. Apparently the NPI I was able to find is not correct. He is going to see ALAYNA Chase LA c at [facility] located at [facility]. [address] [place] [address], and , on 11/12/2023 at 1:00 pm. Can we please see if we can get his NPI number for the letter to insurance. The number I was told is incorrect is: documented in this encounterKettering [facility]06-18-2024 Telephone encounter Note * Telephone Encounter - Katherine Mckeon OCCA - 09/22/2023 4:03 PM EDT Nurse returned call and stated providers NPI is [id number]. YENNY Abdi [facility]06-18-2024 Telephone encounter Note* Telephone Encounter - Katherine Mckeon OCCA - 09/22/2023 3:35 PM EDT TC to ALAYNA Chase's office at [phone] with no answer. Left detailed VM for nurse to return call to our office to provide NPI number as requested by insurance. YENNY Abdi [facility]06-18-2024 Telephone encounter Note* Telephone Encounter - Zeny Lam APRN.CNP - 09/22/2023 12:12 PM EDT Rich is trying to get acupuncture approved through his insurance, they are requesting the NPI for the provider performing the procedure. Apparently the NPI I was able to find is not correct. He is going to see ALAYNA Chase LA c at [facility] located [facility]. [address] [place] [address], and , on 11/12/2023 at 1:00 pm. Can we please see if we can get his NPI number for the letter to insurance. The number I was told is incorrect is: [facility]06-12-2024 Telephone encounter Note* Telephone Encounter - Gabby Rm LPN - 09/16/2023 10:47 AM EDT Updated letter has been faxed to [facility]. [facility]06-12-2024 Miscellaneous Notes* Telephone Encounter - Gabby Rm LPN - 09/16/2023 10:47 AM EDT Updated letter has been faxed to [facility]. * Telephone Encounter - Katherine Mckeon OCCA - 09/15/2023 9:50 AM EDT Please see TE dated 09/10, patient requesting office to not speak to [facility] until after he speaks with Lauryn Lam at appointment today, 09/14. YENNY Abdi * Telephone Encounter - Gabby Rm LPN - 09/08/2023 4:16 PM EDT Letter was sent to [facility] but a fax was sent back from [facility] stating that there are illegible and/or missing items with an extensive list of items they are requesting. PCP is out of the office this week and will have to wait for her return to complete a new letter with needed items requested. Detailed message was left for patient as to same. * Telephone Encounter - Brandi Lambert LPN - 09/08/2023 3:51 PM EDT Pt is calling in regards to letter [...] letter. Brandi Lambert LPN documented in this encounterK[facility]06-11-2024 Note* Addendum Note - Zeny Lam APRN.CNP - 09/15/2023 4:33 PM EDTAddended by: ZENY LAM on: 09/15/2023 04:33 PM Modules accepted: Orders [facility]06-11-2024 Miscellaneous Notes* Addendum Note - Zeny Lam APRN.CNP - 09/15/2023 4:33 PM EDTAddended by: ZENY LAM on: 09/15/2023 04:33 PM Modules accepted: Orders documented in this encounterK[facility]06-11-2024 Telephone encounter Note * Telephone Encounter - Zeny Lam APRN.CNP - 09/15/2023 1:54 PM EDT Yes, I will be ordering those with his visit from today. [facility]06-11-2024 Miscellaneous Notes* Telephone Encounter - Zeny Lam APRN.CNP - 09/15/2023 1:54 PM EDT Yes, I will be ordering those with his visit from today. * Telephone Encounter - Gabby Rm LPN - 09/15/2023 1:40 PM EDT Patient is asking about labs to complete prior to appointment in 02/2024. documented in this encounterK[facility]06-11-2024 Telephone encounter Note * Telephone Encounter - Gabby Rm LPN - 09/15/2023 1:40 PM EDT Patient is asking about labs to complete prior to appointment in 02/2024. [facility]06-11[facility]2024 History of Present illness Narrative* Zeny Lam APRN.KAYLA - 09/15/2023 12:59 PM EDT SUBJECTIVE Alex Brooks is a 78 year [...] He was interested in doing acupuncture for hisback pain since that was recommended, working with [...] mouth once daily. Adjust dose as directed basedon blood pressure readings LORazepam (ATIVAN) 2 mg [...] the evening Back Brace (BACK SUPPORT S/M) [facility] [place] as instructed. 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 Questions answered. Agrees to call the office [...] as well as compliance with taking medications. Age- appropriate health preventative measures were discussed. Return in about 5 months (around 02/22/2024) for Follow up on chronic conditions and medications.. Zeny Lam APRN-THEATRICAL AGENT documented in this encounterKettering [facility]06-11-2024 Telephone encounter Note * Telephone Encounter - Gabby Rm LPN - 09/15/2023 11:29 AM EDT Noted. [facility]06-11-2024 Miscellaneous Notes* Telephone Encounter - Gabby Rm LPN - 09/15/2023 11:29 AM EDT Noted. * Telephone Encounter - Alvin He, MORIAH - 09/11/2023 1:29 PM EDT Patient wants message sent to Gabby, letting you know, not to respond to [facility] about accupuncture, until he speaks with Zeny at next appt. documented in this encounterKettering [facility]06-11-2024 Telephone encounter Note * Telephone Encounter - Zeny Lam APRN.CNP - 09/15/2023 10:27 AM EDT Patient is coming in today for an OV so we will address this then. [facility]06-11-2024 Miscellaneous Notes* Telephone Encounter - Zeny Lam APRN.CNP - 09/15/2023 10:27 AM EDT Patient is coming in today for an OV so we will address this then. * Telephone Encounter - Katherine Mckeon OCCA - 09/15/2023 9:49 AM EDT Please review below and advise if provider wanting to change dosage as recommended by pharmacy. Do not see in chart that fax was received. YENNY Abdi * Telephone Encounter - Antoinette Meadows RN - 09/07/2023 11:29 AM EDT Patient calls to report that Antonella will be sending over a fax in regards to his duloxetine 40 mg. Patient has a $90 co-pay for this medication and patient asked pharmacy recommendation to reduce cost. Ky Araiza is recommending to switch him back to 60 mg with a 30 mg capsule (one in the morning and one in the evening). Patient aware Zeny is out of office until next week and would like to wait for her to make the decision on whether or not it is ok to switch to that. Forwarding to [place] to notify paperwork is being faxed. Antoinette Meadows RN documented in this encounterKettering [facility]06-11-2024 Telephone encounter Note * Telephone Encounter - Katherine Mckeon OCCA - 09/15/2023 9:50 AM EDT Please see TE dated 09/10, patient requesting office to not speak to [facility] until after he speaks with Lauryn Lam at appointment today, 09/14. YENNY Abdi [facility]06-11-2024 Telephone encounter Note* Telephone Encounter - Katherine Mckeon OCCA - 09/15/2023 9:49 AM EDT Please review below and advise if provider wanting to change dosage as recommended by pharmacy. Do not see in chart that fax was received. YENNY Abdi [facility]06-07-2024 Telephone encounter Note* Telephone Encounter - Osei Maciel LPN - 09/11/2023 5:40 PM EDT No need to call patient per note below. Osei Maciel LPN [facility]06-07-2024 Miscellaneous Notes* Telephone Encounter - Osei Maciel LPN - 09/11/2023 5:40 PM EDT No need to call patient per note below. Osei Maciel LPN * Telephone Encounter - Mani Edwards MD - 09/11/2023 5:03 PM EDT Okay to stay on same dose as planned by patient as noted below and discuss with Zeny at follow up appointment. * Telephone Encounter - Alvin He RN - 09/11/2023 1:22 PM EDT Last INR: INR Home CoaguChek 2.1 09/11/2023 [...] provider wants something different). documented in this encounterKettering [facility]06-07-2024 Telephone encounter Note * Telephone Encounter - Mani Edwards MD - 09/11/2023 5:03 PM EDT Okay to stay on same dose as planned by patient as noted below and discuss with Zeny at follow up appointment. [facility] Work Phone: [phone] Telephone encounter Note* Telephone Encounter - Alvin He RN - 09/11/2023 1:29 PM EDT Patient wants message sent to Gabby, letting you know, not to respond to [facility] about accupuncture, until he speaks with Zeny at next appt. [facility]06-07-2024 Telephone encounter Note* Telephone Encounter - Alvin He RN - 09/11/2023 1:22 PM EDT Last INR: INR Home CoaguChek 2.1 09/11/2023 [...] do anyway (unless provider wants something different). [facility]06-04-2024 Telephone encounter Note* Telephone Encounter - Gabby Rm LPN - 09/08/2023 4:16 PM EDT Letter was sent to [facility] but a [...] was left for patient as to same. [facility]06-04-2024 Telephone encounter Note* Telephone Encounter - Brandi Lambert LPN - 09/08/2023 3:51 PM EDT Pt is calling in regards to letter [...] top of the letter. Brandi Lambert LPN [facility]06-03-2024 Telephone encounter Note* Telephone Encounter - Antoinette Meadows RN - 09/07/2023 11:29 AM EDT Patient calls to report that Antonella will be sending over a fax in [...] ok to switch to that. Forwarding to [place] to notify paperwork is being faxed. Antoinette Meadows RN [facility]06-03-2024 Telephone encounter Note* Telephone Encounter - Tammy Wang MA - 09/07/2023 10:34 AM EDT Pharmacy request denied. Patient needs to contact office for refills. Tammy Wang MA [facility]06-03-2024 Miscellaneous Notes* Telephone Encounter - Tammy Wang MA - 09/07/2023 10:34 AM EDT Pharmacy request denied. Patient needs to contact office for refills. Tammy Wang MA documented in this encounterK[facility]24 Telephone encounter Note * Telephone Encounter - Gabby Rm LPN - 09/04/2023 2:41 PM EDT Letter has been faxed to [employer] [phone]. [facility]05-31-2024 Miscellaneous Notes* Telephone Encounter - Gabby Rm LPN - 09/04/2023 2:41 PM EDT Letter has been faxed to [employer] [phone]. * Telephone Encounter - Zeny Lam APRN.CNP - 09/04/2023 2:00 PM EDT Letter printed, please send or have him pick this up. Thanks. * Telephone Encounter - Gabby Rm LPN - 09/04/2023 1:39 PM EDT Spoke with patient and he stated that [facility] is asking for a Out of Network prior authorization letter to see an Out of network case specialist. In the letter it needs to state who he is seeing, when, where and why he is using this out of network provider. Patient is scheduled to see Walt Yang at [facility] on 11/12/2023 at 1:00 pm. Patient is requesting this provider as all other in network providers is too far travel to.He is familiar with and [facility]. [facility] [place] ph. [phone]. documented in this encounterK[facility]05-[facility]24 Telephone encounter Note * Telephone Encounter - Zeny Lam APRN.KAYLA - 09/04/2023 2:00 PM EDT Letter printed, please send or have him pick this up. Thanks. [facility]05-31-2024 Telephone encounter Note* Telephone Encounter - Gabby Rm LPN - 09/04/2023 1:39 PM EDT Spoke with patient and he stated that [facility] is asking for a Out of Network prior authorization letter to see an Out of network case specialist. In the letter it needs to state who he is seeing, when, where and why he is using this out of network provider. Patient is scheduled to see Walt Yang at [facility] on 11/12/2023 at 1:00 pm. Patient is requesting this provider as all other in network providers is too far travel to.He is familiar with and [facility]. [facility] ph. [phone]. [facility]05-31-2024 Telephone encounter Note* Telephone Encounter - Gabby Rm LPN - 09/04/2023 1:19 PM EDT PATIENT NOTIFIED OF SAME. [facility]05-31-2024 Miscellaneous Notes* Telephone Encounter - Gabby Rm LPN - 09/04/2023 1:19 PM EDT PATIENT NOTIFIED OF SAME. * Telephone Encounter - Zeny Lam APRN.CNP - 09/04/2023 12:43 PM EDT Since we made adjustments in his duloxetine dose I would like to continue with his current coumadindose and repeat the INR again in 2 weeks. Please let him know. Thanks * Telephone Encounter - Cyndy Whelan RN - 09/04/2023 12:15 PM EDT Last INR: INR Home CoaguChek 2.0 09/04/2023 Current dose of coumadin is: 7.5mg Fri,Sat,and Sun. 5mg all other days. (Pt states he added the 7.5mg on Fri) Last date of dose change: 08/14/23. Previous INR (date and result): 08/24/23, 2.2. Additional Clinical Information or narrative: yes: Patient denies any unusual bleeding or bruising,recent antibiotics, any missed doses, any diet changes. Pt states he did have a bottle of alcohol 2days ago, which was the first in 13-14 weeks. documented in this encounterK[facility]05-[facility]-2024 Telephone encounter Note * Telephone Encounter - Zeny Lam APRN.CNP - 09/04/2023 12:43 PM EDT Since we made adjustments in his duloxetine dose I would like to continue with his current coumadindose and repeat the INR again in 2 weeks. Please let him know. Thanks [facility]05-31-2024 Telephone encounter Note* Telephone Encounter - Cyndy Whelan RN - 09/04/2023 12:15 PM EDT Last INR: INR Home CoaguChek 2.0 09/04/2023 Current dose of coumadin is: 7.5mg Fri,Sat,and Sun. 5mg all other days. (Pt states he added the 7.5mg on Fri) Last date of dose change: 08/14/23. Previous INR (date and result): 08/24/23, 2.2. Additional Clinical Information or narrative: yes: Patient denies any unusual bleeding or bruising,recent antibiotics, any missed doses, any diet changes. Pt states he did have a bottle of alcohol 2days ago, which was the first in 13-14 weeks. [facility]05-31-2024 Telephone encounter Note* Telephone Encounter - Gabby Rm LPN - 09/04/2023 8:18 AM EDT PATIENT NOTIFIED OF SAME. [facility]05-31-2024 Miscellaneous Notes* Telephone Encounter - Gabby Rm LPN - 09/04/2023 8:18 AM EDT PATIENT NOTIFIED OF SAME. * Telephone Encounter - Zeny Lam APRN.CNP - 09/04/2023 8:14 AM EDT Please let him know a new script has been sent for him to try Cymbalta 40 mg twice daily. * Telephone Encounter - Molly Ann RN - 09/02/2023 4:53 PM EDT Patient returned call. He is willing to try split dose of Cymbalta. He says the 60 mg dose he is currently taking is effective and seems to be lasting a little longer since his original message sent.[facility]. Molly Ann RN * Telephone Encounter - Gabby Rm LPN - 09/02/2023 4:47 PM EDT LEFT MESSAGE FOR PATIENT TO CALL OFFICE. * Telephone Encounter - Zeny Lam APRN.CNP - 09/02/2023 4:39 PM EDT As for helping the duloxetine be more effective we could split the dosing and see if that is helpful. We could try something like taking 40 mg in the am and then 40 mg in the pm and see how that helps. Let me know what he thinks. Thanks. * Telephone Encounter - Gabby Rm LPN - 09/01/2023 1:59 PM EDT Spoke with patient and made him aware [...] can do with medication to last longer? * Telephone Encounter - Zeny Lam APRN.CNP - 09/01/2023 11:54 AM EDT Please return his call and let him [...] that. Does he need a script sent? * Telephone Encounter - Gabby Rm LPN - 08/28/2023 12:19 PM EDT Rich called to state that he did have a good visit with Dr. Moraes on 08/27/23. It was suggested that he see an case specialist. He is asking if you know of any through [facility] closer to home? He checked with his insurance and it is a covered benefit. This can not be a needling therapist, apparently this is two different things. Dr. Moraes did agree that patient should not be taking percocet but did suggest that he resume thetizanidine. Patient is agreeable to this if this doesn't interfere with lorazepam or warfarin. Please advise. documented in this encounterK[facility]05-[facility]-2024 Telephone encounter Note * Telephone Encounter - Zeny Lam APRN.CNP - 09/04/2023 8:14 AM EDT Please let him know a new script has been sent for him to try Cymbalta 40 mg twice daily. [facility]05-29-2024 Telephone encounter Note* Telephone Encounter - Molly Ann RN - 09/02/2023 4:53 PM EDT Patient returned call. He is willing to try split dose of Cymbalta. He says the 60 mg dose he is currently taking is effective and seems to be lasting a little longer since his original message sent.[facility]. Molly Ann RN [facility]05-29-2024 Telephone encounter Note* Telephone Encounter - Gabby Rm LPN - 09/02/2023 4:47 PM EDT LEFT MESSAGE FOR PATIENT TO CALL OFFICE. [facility]05-29-2024 Telephone encounter Note* Telephone Encounter - Zeny Lam APRN.THEATRICAL AGENT - 09/02/2023 4:39 PM EDT As for helping the duloxetine be more effective we could split the dosing and see if that is helpful. We could try something like taking 40 mg in the am and then 40 mg in the pm and see how that helps. Let me know what he thinks. Thanks. [facility]05-29-2024 Telephone encounter Note* Telephone Encounter - Gabby Rm LPN - 09/02/2023 2:41 PM EDT This has been completed [facility]05-29-2024 Miscellaneous Notes* Telephone Encounter - Gabby Rm LPN - 09/02/2023 2:41 PM EDT This has been completed * Telephone Encounter - Molly Ann RN - 09/02/2023 1:00 PM EDT Patient calling to ask if COVID Immunization reminder (Health Maintenance) can be removed from his medical record? He says he received the vaccine on 06/24/23 and it is on his immunization record. Molly Ann, RN documented in this encounterK[facility]05-29-2024 Telephone encounter Note * Telephone Encounter - Molly Ann RN - 09/02/2023 1:00 PM EDT Patient calling to ask if COVID Immunization reminder (Health Maintenance) can be removed from his medical record? He says he received the vaccine on 06/24/23 and it is on his immunization record. Molly Ann, RN [facility]05-28-2024 Telephone encounter Note* Telephone Encounter - Gabby Rm LPN - 09/01/2023 1:59 PM EDT Spoke with patient and made him aware [...] can do with medication to last longer? [facility]05-28-2024 Telephone encounter Note* Telephone Encounter - Zeny Lam APRN.CNP - 09/01/2023 11:56 AM EDT See other encounter. [facility]05-28-2024 Miscellaneous Notes* Telephone Encounter - Zeny Lam APRN.CNP - 09/01/2023 11:56 AM EDT See other encounter. * Telephone Encounter - Alvin He RN - 08/27/2023 4:13 PM EDT Patient reports he just saw a lady [...] today? Notes in epic. documented in this encounterK[facility]05-28-2024 Telephone encounter Note * Telephone Encounter - Zeny Lam APRN.KAYLA - 09/01/2023 11:54 AM EDT Please return his call and let him [...] that. Does he need a script sent? [facility]05-24-2024 Telephone encounter Note* Telephone Encounter - Gabby Rm LPN - 08/28/2023 12:19 PM EDT Rihc called to state that he did have a good visit with Dr. Moraes on 08/27/23. It was suggested that he see an case specialist. He is asking if you know of any through [facility] closer to home? He checked with his insurance and it is a covered benefit. This can not be a needling therapist, apparently this is two different things. Dr. Moraes did agree that patient should not be taking percocet but did suggest that he resume thetizanidine. Patient is agreeable to this if this doesn't interfere with lorazepam or warfarin. Please advise. [facility]05-23-2024 Telephone encounter Note* Telephone Encounter - Alvin He RN - 08/27/2023 4:13 PM EDT Patient reports he just saw a lady that told him to tell Zeny, to order him lidocaine solution to rub on his back. Send to [facility]. Patient was in a hurry and was talking to someone on another phone, so unable to get details. Patient said good bye quickly. Guessing the ov he had with Dr. Moraes today? Notes in epic. [facility]05-23-2024 Instructions* Patient Instructions* Irene Moraes MD - 08/27/2023 2:15 PM EDT Will refer to acupuncture and physical therapy for dry needling RTC 3 months or as need documented in this encounterK[facility]05-[facility]-2024 History of Present illness Narrative* Irene Moraes MD - 08/27/2023 1:38 PM EDT SUBJECTIVE: 77 year old male who presents for comprehensive problem evaluation. 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 Last INR was 2.2. and is checked every 1-2 weeks and adjusted as needed. Supplements: CoQ10 Vit B12 2500 mcg Magnesium 500 mg daily MVI Vit B Complex Emanuel Daley for mild BPH PAST MEDICAL HISTORY Diagnosis [...] to knees, as of 2008 --- in [place], neurologist thought related to alcohol; Has had EMG/NCS ?Related to sugar? -- see fasting glucose 2008; [...] tablet 1 Back Brace (BACK SUPPORT S/M) [facility] [place] as instructed. 1 Each 0 lisinopril (ZESTRIL) 20 mg tablet Take 2 tablets by mouth once daily. Adjust dose as directed basedon blood pressure readings 90 tablet 3 LORazepam [...] as needed for up to 120 days. Forinsomnia 120 tablet 1 No current facility-administered medications [...] walk between clinic and parking at [address]. -Awake, alert and oriented x 3, ASSESSMENT / PLAN: Low back pain and compression fracture on L1 - continue to use Aspercream , interested in acupuncture and dry needling - will refer to PT for dry needling and acupuncture. Discussed that can not do both treatments at the same time. Discussed to check with insurance if he is covered for acupuncture done by case specialist or need to see MD for that. Also discusse that he is on retirement Coumadin therapy and case specialist know. Will refer to acupuncture and physical therapy for dry needling RTC 3 months or as need I spent 60 minutes in the visit, with more than 50% of the total [id number] time of the visit in counseling / coordination of care. All of the patient's questions and concerns were addressed Follow up visit planning discussed Irene Moraes MD documented in this encounterK[facility]05-[facility]-2024 Telephone encounter Note * Telephone Encounter - Gabby Rm LPN - 08/26/2023 4:07 PM EDT PATIENT NOTIFIED OF SAME. [facility]05-22-2024 Miscellaneous Notes* Telephone Encounter - Gabby Rm LPN - 08/26/2023 4:07 PM EDT PATIENT NOTIFIED OF SAME. * Telephone Encounter - Zeny Lam APRN.CNP - 08/26/2023 4:02 PM EDT Please call patient and let him know the xray showed no acute issues but did note a small amount offibrosis or scarring in an area, this is likely as we discussed from his prior Valley Fever infection and could be the cause of his shortness of breath, if he would get more shortness of breath or itbecomes more bothersome we can do some further testing. documented in this encounterK[facility]05-[facility]-2024 Telephone encounter Note * Telephone Encounter - Zeny Lam APRN.CNP - 08/26/2023 4:02 PM EDT Please call patient and let him know the xray showed no acute issues but did note a small amount offibrosis or scarring in an area, this is likely as we discussed from his prior Valley Fever infection and could be the cause of his shortness of breath, if he would get more shortness of breath or itbecomes more bothersome we can do some further testing. [facility]05-21[facility]2024 History of Present illness Narrative* Shefali Jimenez RT(R) - 08/25/2023 10:10 AM EDT Radiology Service Progress Note [...] PATIENT PRESENTS WITH AN IMPLANTABLE OR ATTACHED SERVICE ARCHITECT: No RADIOLOGY DEPARTMENT: General X-ray: Exam(s) Completed: Chest X-Ray PERIPHERAL IV DATA: Not applicable SIGNED BY: RT Boy(Jose J) August 25, 2023 10:26 AM documented in this encounterK[facility]05-21-2024 History of Present illness Narrative* Zeny Lam APRN.CNP - 08/25/2023 9:28 AM EDT SUBJECTIVE Alex Brooks is a 77 year [...] taper. Was seen with PT. Some voice change consultant time. Taking generic Flonase. Some post-nasal drip. Some shortness of breathwith activities at times. Smoked, stopped in 81, [...] mouth once daily. Adjust dose as directed basedon blood pressure readings LORazepam (ATIVAN) 2 mg [...] B complex (B COMPLEX 1 ORAL) SAW PALMETTO ORAL Take 400 mg by [...] on 08/25/2023) Back Brace (BACK SUPPORT S/M) misc Use as instructed. LORazepam (ATIVAN) 1 mg tablet Take 2 tablets by mouth at bedtime as needed for up to 120 days. 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 Hypercoag studies all have been neg [...] breath. Negative for apnea, cough, choking, chest tightness,wheezing and stridor. Cardiovascular: Negative. Musculoskeletal: Positive for [...] which included preparing to see the patient, thio-mj-wdaq patient care, completing clinical documentation, obtaining and/or reviewing separately obtained history, performing a medically appropriate examination, counseling and educating the pat ient/family/caregiver, ordering medications, tests, or procedures, communicating with other HCPs (not separately reported), independently interpreting results (not separately reported), communicatingresults to the patient/family/caregiver, and care coordination (not [...] from today's visit and in agreement with treatmentplan. Questions answered. Agrees to call the office [...] as well as compliance with taking medications. Age- appropriate health preventative measures were discussed. Return if symptoms worsen or fail to improve, for Keep next scheduled appointment.. Zeny Lam APRN-KAYLA documented in this encounterK[facility]05-20-2024 Telephone encounter Note * Telephone Encounter - Gabby Rm LPN - 08/24/2023 1:39 PM EDT PATIENT NOTIFIED OF SAME. Tracker updated [facility]05-20-2024 Miscellaneous Notes* Telephone Encounter - Gabby Rm LPN - 08/24/2023 1:39 PM EDT PATIENT NOTIFIED OF SAME. Tracker updated * Telephone Encounter - Zeny Lam APRN.CNP - 08/24/2023 1:28 PM EDT He should continue with the current dose of coumadin and repeat the INR in 2 weeks. Thanks * Telephone Encounter - Antoinette Meadows RN - 08/24/2023 12:20 PM EDT Last INR: INR Home CoaguChek 2.2 08/24/2023 Current dose of coumadin is: Coumadin 7.5 on Thursday and Thursday. Coumadin 5 mg all other days of the week. Last date of dose change: 08/14/2023. Previous INR (date and result): 1.5 08/14/2023 Additional Clinical Information or narrative: yes: Patient denies any unusual bleeding or bruising,recent antibiotics, any missed doses, any diet changes. Patient reports he finished oxycodone and tizanidine on Thursday08/21/2023. documented in this encounterK[facility]05-20-2024 Telephone encounter Note * Telephone Encounter - Zeny Lam APRN.CNP - 08/24/2023 1:28 PM EDT He should continue with the current dose of coumadin and repeat the INR in 2 weeks. Thanks [facility]05-20-2024 Telephone encounter Note* Telephone Encounter - Antoinette Meadows RN - 08/24/2023 12:20 PM EDT Last INR: INR Home CoaguChek 2.2 08/24/2023 Current dose of coumadin is: Coumadin 7.5 on Thursday and Thursday. Coumadin 5 mg all other days of the week. Last date of dose change: 08/14/2023. Previous INR (date and result): 1.5 08/14/2023 Additional Clinical Information or narrative: yes: Patient denies any unusual bleeding or bruising,recent antibiotics, any missed doses, any diet changes. Patient reports he finished oxycodone and tizanidine on Thursday08/21/2023. [facility]05-14-2024 Telephone encounter Note* Telephone Encounter - Zeny Lam APRN.CNP - 08/18/2023 3:52 PM EDT PDMP website checked and validated. All prescriptions have been APPROPRIATELY filled. No suspiciousactivity was identified. 08/18/2023 by Zeny Lam APRN.CNP [facility]05-14-2024 Miscellaneous Notes* Telephone Encounter - Zeny Lam APRN.CNP - 08/18/2023 3:52 PM EDT PDMP website checked and validated. All prescriptions have been APPROPRIATELY filled. No suspiciousactivity was identified. 08/18/2023 by Zeny Lam APRN.CNP * Telephone Encounter - Graciela Parker RN - 08/18/2023 2:06 PM EDT Patient phones for refill(s): Requested Prescriptions Pending Prescriptions Disp Refills oxyCODONE-acetaminophen (PERCOCET) 5-325 mg tablet 28 tablet 0 Sig: Take 1 tablet by mouth every 6 hours as needed for pain for up to 7 days. Date of last office visit in primary care: 07/27/2023 Date of next office visit in primary care: 09/15/2023 Graciela Parker RN. documented in this encounterK[facility]05-14-2024 Telephone encounter Note * Telephone Encounter - Graciela Parker RN - 08/18/2023 2:06 PM EDT Patient phones for refill(s): Requested Prescriptions Pending Prescriptions Disp Refills oxyCODONE-acetaminophen (PERCOCET) 5-325 mg tablet 28 tablet 0 Sig: Take 1 tablet by mouth every 6 hours as needed for pain for up to 7 days. Date of last office visit in primary care: 07/27/2023 Date of next office visit in primary care: 09/15/2023 Graciela Parker RN. [facility]05-10-2024 Miscellaneous Notes* Telephone Encounter - Gabby Rm LPN - 08/14/2023 3:45 PM EDT PATIENT NOTIFIED OF SAME. Tracker updated. * Telephone Encounter - Zeny Lam APRN.CNP - 08/14/2023 3:16 PM EDT Please advise him to take the 7.5 mg dose on 2 days of the week (can do Sat and Sun) and then the 5mg all other days and repeat INR in 1 week. Zeny Lam APRN.CNP * Telephone Encounter - Tala Torres LPN - 08/14/2023 2:18 PM EDT Last INR: INR Home CoaguChek 1.5 08/14/2023 [...] problems bruising or bleeding. documented in this encounterK[facility]05-10-2024 Telephone encounter Note * Telephone Encounter - Gabby Rm LPN - 08/14/2023 3:45 PM EDT PATIENT NOTIFIED OF SAME. Tracker updated. [facility]05-10-2024 Telephone encounter Note* Telephone Encounter - Zeny Lam APRN.CNP - 08/14/2023 3:16 PM EDT Please advise him to take the 7.5 mg dose on 2 days of the week (can do Sat and Sun) and then the 5mg all other days and repeat INR in 1 week. Zeny Lam APRN.KAYLA [facility]05-10-2024 Telephone encounter Note* Telephone Encounter - Tala Torres LPN - 08/14/2023 2:18 PM EDT Last INR: INR Home CoaguChek 1.5 08/14/2023 [...] no alcohol, no problems bruising or bleeding. [facility]05-09-2024 Telephone encounter Note* Telephone Encounter - Joce Schmid MA - 08/13/2023 9:17 AM EDT Requested Prescriptions Pending Prescriptions Disp Refills tiZANidine (ZANAFLEX) 4 mg tablet 120 tablet 1 Sig: Take 1-2 tablets by mouth every 6 hours as needed. Date of last office visit in primary care: 07/27/2023 Date of next office visit in primary care: 09/15/2023 Please advise. Thank you. Joce Schmid MA. [facility]05-09-2024 Miscellaneous Notes* Telephone Encounter - Joce Schmid MA - 08/13/2023 9:17 AM EDT Requested Prescriptions Pending Prescriptions Disp Refills tiZANidine (ZANAFLEX) 4 mg tablet 120 tablet 1 Sig: Take 1-2 tablets by mouth every 6 hours as needed. Date of last office visit in primary care: 07/27/2023 Date of next office visit in primary care: 09/15/2023 Please advise. Thank you. Joce Schmid MA. documented in this encounterK[facility]05-07-2024 Telephone encounter Note * Telephone Encounter - Zeny Lam APRN.CNP - 08/11/2023 11:58 AM EDT [facility] website checked and validated. All prescriptions have been APPROPRIATELY filled. No suspiciousactivity was identified. 08/11/2023 by Zeny Lam APRN.CNP [facility]05-07-2024 Miscellaneous Notes* Telephone Encounter - Zeny Lam APRN.CNP - 08/11/2023 11:58 AM EDT [facility]. All prescriptions have been APPROPRIATELY filled. No suspiciousactivity was identified. 08/11/2023 by Zeny Lam APRN.CNP * Telephone Encounter - Ramila Anand RN - 08/11/2023 10:18 AM EDT Patient has been identified by name and [...] you. Ramila Anand RN. documented in this encounterK[facility]05-07-2024 Telephone encounter Note * Telephone Encounter - Ramila Anand RN - 08/11/2023 10:18 AM EDT Patient has been identified by name and [...] Please advise. Thank you. Ramila Anand RN. [facility]05-06-2024 Instructions* Patient Instructions* Micah Portillo APRN.CNP, DNP - 08/10/2023 1:29 PM EDT [...] Micah Portillo APRN.CARA GARZA documented in this encounterKettering [facility]05-06-2024 Nurse Note* Marcell Munguia MA - 08/10/2023 1:01 PM EDT 76 mL of urine in the bladder 40 MINUTES after voiding [facility] [place] Nurse Note* Marcell Munguia MA - 08/10/2023 1:01 PM EDT 76 mL of urine in the bladder 40 MINUTES after voiding documented in this encounterK[facility] History of Present illness Narrative* Micah Portillo APRN.CARA GARZA - 08/10/2023 12:57 PM EDT [facility] PATIENT - HISTORY AND PHYSICAL EXAMINATION PATIENT: Alex Brooks (77 year old) 08/10/2023 PCP: Zeny Lam APRN.KAYLA Consultation requested by Dr. Franc Hills [address] [facility] [id number] for an opinion regarding BPH/LUTS and my [...] any BPH/LUTS oral medications. Was on Saw [place] - did not notice any difference. PRESENTING [...] again less than two hours after you finishedurinating? SCORE: 4- More than half the time [...] up to urinate from the time you wentto bed at night until the time you [...] to knees, as of 2008 --- in [place], neurologist thought related to alcohol; Has had EMG/NCS ?Related to sugar? -- see fasting glucose 2008; [...] as needed. Back Brace (BACK SUPPORT S/M) [facility] Use as instructed. lisinopril (ZESTRIL) 20 mg tablet Take 2 tablets by mouth once daily. Adjust dose as directed basedon blood pressure readings LORazepam (ATIVAN) 2 mg [...] as needed for up to 120 days. Forinsomnia No current facility-administered medications for this visit. [...] therapy [e.g. Tamsulosin] - potential risks of dizz iness, asthenia, orthostasis, and retrograde ejaculation. Plan: -UA normal/PENG Normal/No FHX of prostate cancer Trial of Flomax at bedtime PVR = 76ml follow up in 3 months Avoid bladder irritants. - BLADDER SCAN - TAMSULOSIN 0.4 MG CAPSULE I spent a total of 35 minutes on the date of the service which included preparing to see the patient, [id number] patient care, completing clinical documentation, performing a medically appropriate examination, counseling and educating the patient/family/caregiver and ordering medications, tests, or procedures. Micah Portillo DNP, KAYLA Department of [facility]rology [facility] documented in this encounterK[facility]04-30-2024 Telephone encounter Note * Telephone Encounter - Zeny Lam APRN.CNP - 08/04/2023 1:17 PM EDT [facility] checked and validated. All prescriptions have been APPROPRIATELY filled. No suspiciousactivity was identified. 08/04/2023 by Zeny Lam APRN.CNP [facility]04-30-2024 Miscellaneous Notes* Telephone Encounter - Zeny Lam APRN.CNP - 08/04/2023 1:17 PM EDT [facility] checked and validated. All prescriptions have been APPROPRIATELY filled. No suspiciousactivity was identified. 08/04/2023 by Zeny Lam APRN.CNP * Telephone Encounter - Ramila Anand RN - 08/04/2023 12:37 PM EDT Patient has been identified by name and [...] you. Ramila Anand RN. documented in this encounterKettering [facility]04-30-2024 Telephone encounter Note * Telephone Encounter - Ramila Anand RN - 08/04/2023 12:37 PM EDT Patient has been identified by name and [...] Please advise. Thank you. Ramila Anand RN. [facility]04-25-2024 Telephone encounter Note* Telephone Encounter - Molly Ann RN - 07/30/2023 1:25 PM EDT Spoke with patient. Given message from provider's office. Patient verbalizes understanding. He confirmed he received VM message. Molly Ann RN [facility]04-25-2024 Miscellaneous Notes* Telephone Encounter - Molly Ann RN - 07/30/2023 1:25 PM EDT Spoke with patient. Given message from provider's office. Patient verbalizes understanding. He confirmed he received VM message. Molly Ann RN * Telephone Encounter - Celia James LPN - 07/30/2023 1:22 PM EDT Left detailed message regarding coumadin instructions and was advised to call back to confirm message was received. Celia James LPN * Telephone Encounter - Bonnie Sharif APRN.SHANA - 07/30/2023 12:47 PM EDT Continue with current Coumadin dosing unchanged. Regarding dental appointment: Recommend checking INR 5 to 7 days after resuming Coumadin. He may resume Coumadin at 5 mg daily. * Telephone Encounter - Maribel Oden LPN - 07/30/2023 11:30 AM EDT Last INR: INR Home CoaguChek 1.9 07/30/2023 [...] thru 08/05/23. Starting back on this 08/06/23. Pthaving a dental work done on 08/06/23. Pt [...] message. Maribel Oden LPN documented in this encounterKettering [facility]04-25-2024 Telephone encounter Note * Telephone Encounter - Celia James LPN - 07/30/2023 1:22 PM EDT Left detailed message regarding coumadin instructions and was advised to call back to confirm message was received. Celia James LPN [facility]04-25-2024 Telephone encounter Note* Telephone Encounter - Bonnie Sharif APRN.SHANA - 07/30/2023 12:47 PM EDT Continue with current Coumadin dosing unchanged. Regarding dental appointment: Recommend checking INR 5 to 7 days after resuming Coumadin. He may resume Coumadin at 5 mg daily. [facility]04-25-2024 Telephone encounter Note* Telephone Encounter - Maribel Oden LPN - 07/30/2023 11:39 AM EDT See phone encounter 07-30-23 anticoagulation. Maribel Oden LPN [facility]04-25-2024 Miscellaneous Notes* Telephone Encounter - Maribel Oden LPN - 07/30/2023 11:39 AM EDT See phone encounter 07-30-23 anticoagulation. Maribel Oden LPN documented in this encounterKettering Health [facility]04-25-2024 Telephone encounter Note * Telephone Encounter - Maribel Oden LPN - 07/30/2023 11:30 AM EDT Last INR: INR Home CoaguChek 1.9 07/30/2023 [...] thru 08/05/23. Starting back on this 08/06/23. Pthaving a dental work done on 08/06/23. Pt [...] leave a detailed message. Maribel Oden LPN [facility]04-22-2024 Instructions* Patient Instructions* Zeny Lam APRN.CNP - 07/27/2023 1:18 PM EDT Start reducing your use of the muscle relaxer, the Zanaflex (tizanidine) as pain improves. Increase the dose of the Cymbalta from the 30 mg daily to 60 mg daily. Try to use your back brace for a short time daily. documented in this encounterKettering [facility]04-22-2024 History of Present illness Narrative* Zeny Lam APRN.CNP - 07/27/2023 1:09 PM EDT SUBJECTIVE Alex Brooks is a 77 year old male here today for a check up on his medical problems. Chief Complaint Patient presents with: ER F/U: 07/15/2023 for back pain/injury from a fall HPI Alex Brooks is a 77 year old male. He is an established patient. Here today for an ER follow up. He was being seen with PT for help with his back pain. Sent to ER by PT for concerns cauda equina syndrome. He was seen in the ER at [facility] on 07/15/2023. He had an MRI done. [...] mouth once daily. Adjust dose as directed basedon blood pressure readings LORazepam (ATIVAN) 2 mg [...] two times a day. 500mg daily) SAW PALMOSVALDO ORAL Take 400 mg by mouth twice [...] daily. Back Brace (BACK SUPPORT S/M) misc Use as instructed. LORazepam (ATIVAN) 1 mg tablet Take 2 tablets by mouth at bedtime as needed for up to 120 days. Forinsomnia No current facility-administered medications for this visit. ALLERGIES Allergen Reactions Cyclobenzaprine Other: See Comments Double vision Gabapentin Intolerance Keflex [Cephalexin] Rash ACTIVE PROBLEM LIST Compression Fracture of L1 Lumbar Vertebra ([facility]) - 07/15/2023 Sciatic Leg Pain - 07/15/2023 Bilateral Carotid Artery Stenosis - 06/15/2023 Acute Gastritis Without Hemorrhage - 04/20/2023 Spinal Stenosis of Lumbar Region - 09/24/2022 Pad (Peripheral Artery Disease) ([facility]) - 08/16/2021 Kidney Insufficiency - 04/04/2021 Posterior Vitreous Detachment of Right Eye - 06/19/2020 Age-Related Nuclear Cataract of Right Eye - 06/19/2020 Balance Problem - 03/12/2020 History of Left-Sided Carotid Endarterectomy - 06/10/2019 Colonic Polyp - 11/29/2018 Health Physicist (Current) Use of Anticoagulants - 09/15/2018 Recurrent Pulmonary Embolism ([facility]) - 05/08/2014 Comment: 1st episode 2009, 2nd [...] spine surgery as scheduled. Increase Cymbalta and tryto reduce percocet and flexeril use. He also [...] All prescriptions have been APPROPRIATELY filled. No suspiciousactivity was identified. 07/27/2023 by Zeny Lam APRN.CNP Portions of this [...] from today's visit and in agreement with treatmentplan. Questions answered. Agrees to call the office [...] as well as compliance with taking medications. Age- appropriate health preventative measures were discussed. . Return if symptoms worsen or fail to improve, for Keep next scheduled appointment.. Zeny Lam APRN-THEATRICAL AGENT documented in this encounterKettering Health [facility]04-22-2024 Telephone encounter Note * Telephone Encounter - Mirlande Maria MA - 07/27/2023 9:34 AM EDT Patient has been identified by name and [...] Please advise. Thank you. Mirlande Maria MA. [facility]04-22-2024 Miscellaneous Notes* Telephone Encounter - Mirlande Maria MA - 07/27/2023 9:34 AM EDT Patient has been identified by name and [...] you. Mirlande Maria MA. documented in this encounterKettering Health [facility]04-16-2024 History of Present illness Narrative* Edgar Loaiza DO - 07/21/2023 11:25 AM EDT Images from the original note were not included. [facility] [place] DEPARTMENT OF VASCULAR SURGERY OUTPATIENT VISIT DATE July 21, 2023 OUTPATIENT VISIT TYPE ESTABLISHED SERVICE DATE: 07/21/2023 SERVICE TIME: 11:25 AM PRIMARY CARE PHYSICIAN: Zeny Lam APRN.CNP HISTORY OF PRESENT ILLNESS: Mr. Brooks is [...] to knees, as of 2008 --- in [place], neurologist thought related to alcohol; Has had EMG/NCS ?Related to sugar? -- see fasting glucose 2008; [...] as needed. Back Brace (BACK SUPPORT S/M) [facility] Use as instructed. lisinopril (ZESTRIL) 20 mg tablet Take 2 tablets by mouth once daily. Adjust dose as directed basedon blood pressure readings LORazepam (ATIVAN) 2 mg [...] as needed for up to 120 days. Forinsomnia ALLERGIES: ALLERGIES Allergen Reactions Cyclobenzaprine Other: See [...] 2023 TIME: 11:25 AM documented in this encounterK[facility]tering [facility]04-16-2024 Miscellaneous Notes* Telephone Encounter - Zeny Lam APRN.THEATRICAL AGENT - 07/21/2023 8:18 AM EDT PDMP website checked and validated. All prescriptions have been APPROPRIATELY filled. No suspiciousactivity was identified. 07/21/2023 by Zeny Lam APRN.KAYLA * Telephone Encounter - Tala Torres LPN - 07/20/2023 11:27 AM EDT Patient has been identified by name and [...] you. Tala Torres LPN. documented in this encounterKettering [facility]04-13-2024 History of Present illness Narrative* Franc Hills MD - 07/18/2023 9:24 AM EDT This note was created using Vitel[employer] Mobile Technologyriter. Subjective Patient presents with: ED Follow-up: back [...] equina syndrome and referred him directly to [facility]. MRI of his lumbar spine was on file, and was essentially negative for cauda equina syndrome. Hewas discharged with a diagnosis of chronic midline low back pain without sciatica, closed compression fracture of L1, and BPH with LUTs. Bladder ultrasound confirmed incomplete bladder emptying. He was not started on medication for BPH, as he felt urinary symptoms were bothersome only when reclining flat. He has been getting consistent Percocet refills and had a current prescription. He was usinga back brace. Review of Systems Constitutional: Negative [...] (Gastroesophageal Reflux Disease) Recurrent Pulmonary Embolism (H[facility]) Alf (Current) Use of Anticoagulants Colonic Polyp History of Left-Sided Carotid Endarterectomy Balance Problem 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 Kidney Insufficiency Pad (Peripheral Artery Disease) ([facility]) Spinal Stenosis of Lumbar Region Acute Gastritis Without Hemorrhage Bilateral Carotid Artery Stenosis Compression Fracture of L1 Lumbar Vertebra ([facility]) Sciatic Leg Pain Current Outpatient Medications Medication [...] as needed. Back Brace (BACK SUPPORT S/M) [facility] Use as instructed. lisinopril (ZESTRIL) 20 mg tablet Take 2 tablets by mouth once daily. Adjust dose as directed basedon blood pressure readings LORazepam (ATIVAN) 1 mg tablet Take 2 tablets by mouth at bedtime as needed for up to 120 days. Forinsomnia LORazepam (ATIVAN) 2 mg tab Take 1 [...] scheduled. Franc Hills MD documented in this encounterKettering [facility]04-12-2024 Miscellaneous Notes* Telephone Encounter - Maribel Oden LPN - 07/17/2023 11:39 AM EDT Patient has been identified by name and date of : Yes, Provider Zeny Lam Date 07/17/23 Time11:40 am Patient phones for refill(s): Requested Prescriptions Pending Prescriptions Disp Refills famotidine (PEPCID) 40 mg tablet 90 tablet 1 Sig: Take 1 tablet by mouth once daily as needed. Date of last office visit in primary care: Visit 06/29/23 Date of next office visit in primary care: Visit 07/27/23 Thank you. Maribel Oden LPN. documented in this encounterKettering Health [facility]04-10-2024 Miscellaneous Notes* Telephone Encounter - Kristina Youssef LPN - 07/15/2023 5:08 PM EDT My chart message to pt. * Telephone Encounter - Franc Hills MD - 07/15/2023 4:55 PM EDT Continue Coumadin dose. INR in 2 weeks. * Telephone Encounter - Maribel Oden LPN - 07/15/2023 3:34 PM EDT Last INR: INR Home CoaguChek 2.4 07/15/2023 Current dose of coumadin is: 5 mg daily. Last date of dose change: 06/12/23. Previous INR (date and result): 06/30/23 2/ INR Goal 2.0 to 3.0 Additional Clinical Information or narrative: no denies and bledding, bruising, change in diet, missed doses, recent ATB. Provider out of the office. 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 Maribel Oden LPN * Telephone Encounter - Franc Hills MD - 07/15/2023 1:12 PM EDT Percocet refilled. * Telephone Encounter - Cyndy Whelan RN - 07/15/2023 10:38 AM EDT Pt states she will be out of medication by noon on . * Telephone Encounter - Cyndy Whelan RN - 07/14/2023 2:23 PM EDT Pt called in asking about this medication. Sending medication high alert. * Telephone Encounter - Maribel Oden LPN - 07/13/2023 1:53 PM EDT Reason for taking medication is because of [...] you. Maribel Oden LPN. documented in this encounterKettering [facility]04-10-2024 History of Present illness Narrative* Brian Prather, PT - 07/15/2023 12:48 PM EDT Images from the original note [...] a rehabilitation concern. Prognosis for therapy is [place] to: clinical presentation, multiple co- morbidities, advanced [...] and driving. Patient agreeable to go to [facility] due to cauda equina symptoms today [...] [id number] Brian Prather PT documented in this encounterKettering Health [facility]04-02-2024 Miscellaneous Notes* Telephone Encounter - Antoinette Meadows RN - 07/07/2023 10:16 AM EDT Rescheduled. Antoinette Meadows RN * Telephone Encounter - Zeny Lam APRN.CNP - 07/06/2023 3:45 PM EDT Refill sent, please let him know that I am okay moving out the wellness/follow up appointment, plase schedule when he is agreeable to come in. Thanks * Telephone Encounter - Antoinette Meadows RN - 07/06/2023 12:53 PM EDT Patient calls to ask if provider thinks it would be a good idea to reschedule his 6 month follow upand Wellness Physical at the end of July [...] advise, Antoinette Meadows RN documented in this encounterKettering Health [facility]03-26-2024 Miscellaneous Notes* Telephone Encounter - Maribel Mccoy MA - 06/30/2023 4:16 PM EDT Pt notified and verbalizes understanding. Tracker updated Maribel Mccoy MA * Telephone Encounter - Zeny Lam APRN.CNP - 06/30/2023 4:07 PM EDT INR looks good, continue with current dose of coumadin and repeat INR in 2 weeks since we started the Cymbalta this week. * Telephone Encounter - Maribel Oden LPN - 06/30/2023 3:41 PM EDT Last INR: INR Home CoaguChek 2.2 06/30/2023 [...] pt. Maribel Oden LPN documented in this encounterKettering Health [facility]03-25-2024 History of Present illness Narrative* Zeny Lam APRN.CNP - 06/29/2023 11:19 AM EDT SUBJECTIVE Alex Brooks is a 77 year [...] an established patient. He presents today for followup for concerns of still having issues with [...] Zanaflex helps with some certain pains too. Togetherthey are keeping pain okay. Pain down both legs, under the buttocks and laterally. Numbness to the legs but not saddle paresthesia. No loss of bowel or bladder control or leaking. Wearing a back brace at times but not frequently. His medications were reviewed today and his list is now up to date. Medications Current Outpatient Medications Medication Sig Back Brace (BACK SUPPORT S/M) [facility] Use as instructed. lisinopril (ZESTRIL) 20 mg tablet Take 2 tablets by mouth once daily. Adjust dose as directed basedon blood pressure readings LORazepam (ATIVAN) 1 mg tablet Take 2 tablets by mouth at bedtime as needed for up to 120 days. Forinsomnia LORazepam (ATIVAN) 2 mg tab Take 1 [...] Endarterectomy - 06/10/2019 Colonic Polyp - 11/29/2018 Health Physicist (Current) Use of Anticoagulants - 09/15/2018 Recurrent [...] MG-325 MG TABLET - CON[facility]ULT TO [facility] - CONSULT TO WELLNESS NON-PHARMACOLOGIC PAIN MANAGEMENT - CONSULT TO PHYSICAL THERAPY - BACLOFEN 2% DICLOFENAC 5% LIDOCAINE 5% TOPICAL - DULOXETINE 30 MG CAPSULE,DELAYED RELEASE 2. Chronic low back pain without sciatica, unspecified back pain laterality - ICD9: 724.2, 338.29, ICD10: M54.50, G89.29 - OXYCODONE-ACETAMINOPHEN 5 MG-325 MG TABLET - CON[facility]ULT TO [facility] - CONSULT TO WELLNESS NON-PHARMACOLOGIC PAIN MANAGEMENT - CONSULT TO PHYSICAL THERAPY - BACLOFEN 2% DICLOFENAC 5% LIDOCAINE 5% TOPICAL - DULOXETINE 30 MG CAPSULE,DELAYED RELEASE 3. Compression fracture of L1 vertebra with routine healing, subsequent encounter - ICD9: V54.17, ICD10: S32.010D - OXYCODONE-ACETAMINOPHEN 5 MG-325 MG TABLET - [facility] TO [facility] - CONSULT TO WELLNESS NON-PHARMACOLOGIC [...] from today's visit and in agreement with treatmentplan. Questions answered. Agrees to call the office [...] as well as compliance with taking medications. Age- appropriate health preventative measures were discussed. Return if symptoms worsen or fail to improve, for Keep next scheduled appointment.. Zeny Lam APRN-KAYLA documented in this encounterKettering Health [facility]03-22-2024 Miscellaneous Notes* Telephone Encounter - Zeny Lam APRN.CNP - 06/26/2023 7:12 AM EDT Agree with being seen since his pain is persistent. * Telephone Encounter - Cyndy Whelan RN - 06/24/2023 10:08 AM EDT Pt called in and reports he has had the back pain for 6 weeks and it is just getting worse. He reports he was looking at the [facility] newsletter for bad back, and he said the only thing he wouldn't be able to do was they therapy due to the pain. He states he would like to go over orthopedic surgery etc.Pt scheduled with provider 06/29/23. documented in this encounterKettering [facility]03-19-2024 Miscellaneous Notes* Telephone Encounter - Zeny Lam APRN.CNP - 06/23/2023 9:59 AM EDT PDMP website checked and validated. All prescriptions have been APPROPRIATELY filled. No suspiciousactivity was identified. 06/23/2023 by Zeny Lam APRN.KAYLA * Telephone Encounter - Cyndy Whelan RN - 06/23/2023 8:26 AM EDT Pt called in and reports he is back to wearing the back brace. He states it is working ok, but he thinks he is going to have to take the 12 weeks for it to heal. He states the symptoms change every day. Patient has been identified by name and date of : Yes, Provider Zeny Lam LICENSED MENTAL HEALTH PROFESSIONAL Date 06/23/23 Time 0827. Patient phones for [...] you. Cyndy Whelan RN. documented in this encounterKettering [facility]03-15-2024 Miscellaneous Notes* Telephone Encounter - Lizz Smith MA - 06/19/2023 2:52 PM EDT Pt notified and voiced understanding. Lizz Smith MA * Telephone Encounter - Zeny Lam APRN.CNP - 06/19/2023 2:28 PM EDT Okay to try the Zanaflex 6 mg but I would suggest if he is taking the higher dose of Zanaflex consistently then he do the repeat INR in the 10 days rather than 14 days since this can interfere with that. * Telephone Encounter - Lizz Smith MA - 06/19/2023 1:11 PM EDT Pt states that he is still having some pain but improved some. He is tolerating the Zanaflex 4 mg daily, taking 1 pill every 6 hours along with his percocet which he states he was instructed not to do but state he doesn't drive so he is fine'. He states that the Percocet works so-so but wants tosee if he can trying increasing the Zanaflex to 6 mg every 6 hours and see if that helps better. He states that he doesn't need a script for the 6 mg zanaflex at this time unless he knows it helps, he states he can cut the 4 mg tablets in half at this time. Please advise. Lizz Smith MA, documented in this encounterKettering [facility]03-15-2024 Miscellaneous Notes* Telephone Encounter - Lizz Smith MA - 06/19/2023 1:11 PM EDT Pt notified and voiced understanding. Tracker and med list updated. Lizz Smith MA * Telephone Encounter - Zeny Lam APRN.KAYLA - 06/19/2023 12:58 PM EDT Please let him know to continue with the 5 mg daily dose of his coumadin, we can repeat the INR in 10-14 days to see if it stays within the 2-3 range and to ensure it does not drift back up. * Telephone Encounter - Maribel Oden LPN - 06/19/2023 12:43 PM EDT Last INR: INR Home CoaguChek 2.9 06/19/2023 Current dose of coumadin is: 5 mg daily. Last date of dose change: 06/12/23. Previous INR (date and result): 06/12/23 3.0 Additional Clinical Information or narrative: no; denies any bleeding, bruising, change in diet, has not missed any doses. Please advise pt. Okay to leave a detailed message. Maribel Oden LPN documented in this encounterKettering [facility]03-11-2024 Miscellaneous Notes* Telephone Encounter - Kari Briones LPN - 06/15/2023 4:30 PM EDT Patient has been identified by name and [...] you. Kari Briones LPN. documented in this encounterKettering [facility]03-11-2024 Miscellaneous Notes* Telephone Encounter - Ramila Anand RN - 06/15/2023 2:30 PM EDT Called pt and notified RX sent through and notified of Zeny's recommendations and instructions. * Telephone Encounter - Zeny Lam APRN.CNP - 06/15/2023 11:58 AM EDT Please let him know I think PT could be helpful but they may want to be conservative with the PT given the compression fracture. I will place orders. Unfortunately with [facility] the water therapy is not an option in [facility], I'm not sure what the closest option would be, I know the [facility] in [place] can do the pool therapy. * Telephone Encounter - Tala Torres LPN - 06/15/2023 9:00 AM EDT Patient calling was asking about doing Physical therapy for his back pain? Or doing whirlpool or aqua therapy? His insurance [employer] is out of network. Told him [facility] does not have water therapy or whirlpool. [...] you. Tala Torres LPN. documented in this encounterKettering Health [facility]03-11-2024 History of Present illness Narrative* Sunny Mercedes MD - 06/15/2023 1:00 PM EDT Images from the original note were not included. [facility] SECTION OF REGIONAL CARDIOLOGY Cardiology ([facility]) [address] [id number] OUTPATIENT VISIT DATE 06/14/2023 PRIMARY CARE PHYSICIAN: Zeny Lam [address] [place] [address] HISTORY OF PRESENT ILLNESS: Mr. Brooks is [...] active. He has been somewhat immobile since hisrecent fall. He has not had symptoms of [...] to knees, as of 2008 --- in [place], neurologist thought related to alcohol; Has had EMG/NCS ?Related to sugar? -- see fasting glucose 2008; [...] 7 days. Back Brace (BACK SUPPORT S/M) [facility] [place] as instructed. tiZANidine (ZANAFLEX) 4 mg tablet Take 1 tablet by mouth every 6 hours as needed. lisinopril (ZESTRIL) 20 mg tablet Take 2 tablets by mouth once daily. Adjust dose as directed basedon blood pressure readings LORazepam (ATIVAN) 1 mg tablet Take 2 tablets by mouth at bedtime as needed for up to 120 days. Forinsomnia LORazepam (ATIVAN) 2 mg tab Take 1 [...] him to start checking his blood pressure athome. He should decrease his lisinopril to 20 [...] I65.23 Sunny Mercedes MD documented in this encounterKettering Health [facility]03-08-2024 Miscellaneous Notes* Telephone Encounter - Ramila Anand RN - 06/12/2023 5:03 PM EST Anticoag tracker updated. See other phone note dated 06/11 for Coumadin instructions. Pt was notified. * Telephone Encounter - Zeny Lam APRN.CNP - 06/12/2023 11:44 AM EST See other encounter. * Telephone Encounter - Ramila Anand RN - 06/12/2023 11:35 AM EST Last INR: INR Home CoaguChek 3.0 06/12/2023 [...] Information or narrative: no documented in this encounterKettering Health [facility]03-08-2024 Miscellaneous Notes* Telephone Encounter - Katherine Mckeon OCCA - 06/12/2023 12:24 PM EST TC to patient who verbalized understanding of providers message below. Patient agreeable to 5 mg coumadin x 1 week with a recheck next Thursday. No questions at this time. YENNY Abdi * Telephone Encounter - Zeny Lam APRN.CNP - 06/12/2023 11:24 AM EST Understood, I am sorry to hear the brace has not been very helpful yet. Please let him know his INRis back, level is 3 so at the high end of goal range 2-3. IF he is agreeable I would like for him to take 5 mg of coumadin daily starting today and repeat his INR in 1 week. * Telephone Encounter - Tala Torres LPN - 06/12/2023 9:14 AM EST Patient calling no need to call Dr Leal, his is no longer having sciatic type pain, said the pain is in the muscles. He said the back brace was a waste of one hundred dollars, does nothing to help him. He wanted to save Zeny from calling Dr Leal to get him in for an appt. documented in this encounterKettering Health [facility]03-06-2024 Miscellaneous Notes* Telephone Encounter - Madelyn Cohen RN - 06/10/2023 4:25 PM EST MARITZA: 06/03/2023 w/Dr. Leal Patient with complaints of bilateral lumbar pain that does not radiate. During this OV and the prior OV on 01/19/2023, patient has not complained of radiating pain. MRI lumbar spine was reviewed with the patient. Finding is consistent with traumatic L1 compressionfracture. In discussing treatment options, the patient wants to stay in a conservative course. Recommend lumbar support brace to provide support and healing for L1 compression fracture. Interventional procedure options discussed. L1 kyphoplasty was discussed but patient at this time wants to defer it and stay with conservative course. No new medication was prescribed. Encouraged regular home exercise program. F/U in 3 months * Telephone Encounter - Zeny Lam APRN.CNP - 06/10/2023 4:20 PM EST Rich Sanchez requested we send a message to see if Dr. Leal can help treat his sciatic pain. I let him know I would pass along his request. documented in this encounterKettering Health [facility]03-04-2024 Miscellaneous Notes* Telephone Encounter - Zeny Lam APRN.KAYLA - 06/08/2023 8:54 AM EST PDMP website checked and validated. All prescriptions have been APPROPRIATELY filled. No suspiciousactivity was identified. 06/08/2023 by Zeny Lam APRN.KAYLA * Telephone Encounter - Maribel Oden LPN - 06/08/2023 8:11 AM EST Pt called for refill on medication below. [...] you. Maribel Oden LPN. documented in this encounterKettering Health [facility]03-01-2024 Miscellaneous Notes* Telephone Encounter - Ramila Anand RN - 06/05/2023 1:11 PM EST Pt calling in to see if Zeny had looked at his INR and given instructions yet. Read Zeny's instructions to pt and had them write them down. Then also sent the instructions tp pt's MyChart for his review as well. Pt aware to repeat INR next Thu. * Telephone Encounter - Zeny Lam APRN.KAYLA - 06/05/2023 10:38 AM EST Please let patient know INR up again at 4.5, he should hold coumadin dose today then take 5 mg on thu and thu, 7.5 mg on thu. and ., then take the 5 mg dose again on and . then repeat INR on Thursday. * Telephone Encounter - Graciela Parker RN - 06/05/2023 9:37 AM EST Last INR: 4.5 06/05/23 Lab Current dose of coumadin: 7.5mg daily Last date of dose change: 05/19/23 Previous INR (date & result): 2.6 05/26/23 Additional clinical information or narrative: No diet changes, pt states his diet is all over the place as usual, not cosistent. No bleeding or bruising. documented in this encounterKettering Health [facility]03-01-2024 Miscellaneous Notes* Telephone Encounter - Julieth Avila LPN - 06/05/2023 8:47 AM EST Letter taken to medical records to be mailed out this day. Julieth Avila LPN documented in this encounterKettering Health [facility]02-29-2024 Miscellaneous Notes* Telephone Encounter - Betzaida Kiser Ma - 06/04/2023 9:20 AM EST Received patient's MyChart information with DME information. Back brace order, demographics, insurance cards, photo ID, and office visit note has been faxed to [facility] in [place] . Fax confirmation received. The intake department at [facility] will be in contact with the patient. If patient should have any questions regarding the back brace, he should contact [facility] directly at . Notified the patient via [employer]. * Telephone Encounter - Saida Aggarwal - 06/03/2023 3:53 PM EST Patient called back to inform Staff that [facility] has advised that the order should be sent to [facility]. Patient did not have contact info. Informed Patient that I couldn't find any information online for [facility]. Patient stated he will call [facility] back to confirm that this is the correct DME. Patient advised to send us preferred DME information via [employer] message. Patient is agreeable to do this. Saida Aggarwal * Telephone Encounter - Saida Aggarwal - 06/03/2023 3:05 PM EST Patient notified [facility] staff that insurance will not cover back brace supplied by [facility]. Patient requesting order be sent to [facility] in [place]. Patient did not provide contact information for [facility]. Patient requesting a call to notify him once order is sent to [facility]. Please advise, Saida Aggarwal * Telephone Encounter - Betzaida Kiser Ma - 06/03/2023 2:33 PM EST Back brace was ordered by Dr. Leal during today's office visit. Awaiting on office visit notes. Once notes are signed the order will be emailed to [facility]. documented in this encounterKettering Health [facility]02-28-2024 Miscellaneous Notes* Telephone Encounter - Zeny Lam APRN.CNP - 06/03/2023 3:07 PM EST Noted. * Telephone Encounter - Corrina Velarde LPN - 06/03/2023 2:59 PM EST Pt states Dr Leal does not recommend surgery, states he is ordering a back brace for him from [facility] in [place]. Corrina Velarde LPN documented in this encounterKettering Health [facility]02-28-2024 History of Present illness Narrative* Mckinley Leal MD - 06/03/2023 1:46 PM EST [facility] Date: June 03, 2023 - 1:46 PM Chief Complaint: back pain SUBJECTIVE: Mr. Brooks presents to the [facility] for a follow up appointment regarding back pain. He fell on 05/14/2023. He sustained L1 compression fracture. He is having persistent pain. The pain is located in the middle lumbar region and does not radiate. // The pain is described as sharp and shooting and is rated as 8 on a scale of 0- 10. Symptoms interfere with physical activity, walking, sleeping, [...] to knees, as of 2008 --- in [place], neurologist thought related to alcohol; Has had EMG/NCS ?Related to sugar? -- see fasting glucose 2008; [...] mouth once daily. Adjust dose as directed basedon blood pressure readings polyethylene glycol 3350 17 gram/dose powder Take 1 Cap-Full by mouth once daily as needed for constipation. Dissolve dose in 4 - 8 ounces of liquid and take as directed. LORazepam (ATIVAN) 1 mg tablet Take 2 tablets by mouth at bedtime as needed for up to 120 days. Forinsomnia LORazepam (ATIVAN) 2 mg tab Take 1 [...] All prescriptions have been APPROPRIATELY filled. No suspiciousactivity was identified. 06/03/2023 by Mckinley Leal MD Narcotic Agreement reviewed and signed?: N/A on June 03, 2023 Urine Panel: No results found for: UQCANN, UQBNZL, WKR5XAY, UQAMPH, UQMAMP, UQBUPRE, UQNORBUP, UQMTHD, UQEDDP, UQTRAM, [...] Compression fracture of l1 vertebra, initial encounter (formerly [facility]) (primary encounter diagnosis) PLAN: Prior available imaging [...] Mckinley Leal MD cc: Dr. Zeny Lam APRN.THEATRICAL AGENT cc: No referring provider defined for this encounter. Phone: N/A Fax: Results of consultation to be transmitted via electronic medical record for those providers who practice within [facility] or with access to [facility] [facility] via MD Connect, or via letter. 1. [...] treatment plans will be discussed during your follow- up appointment. If you do not have a follow-up appointment and wish to discuss any issues, please set up an appointment. 3. It is my practice to not fill disability or any other insurance-related forms/documentation. Allof the office notes, study results, and other pertinent documentation generated as part of your evaluation will be available to you and to your Primary Care Physician (PCP). Use of this material to complete such forms will be at the discretion of your PCP/referring physician. documented in this encounterKettering Health [facility]02-27-2024 Miscellaneous Notes* Telephone Encounter - Betzaida Kiser Ma - 06/02/2023 11:47 AM EST Patient is scheduled with Dr. Leal tomorrow. [employer] states the physician is Dr. Yves Mcqueen with interventional radiology. Will notify Dr. Leal when he returns to office tomorrow. * Telephone Encounter - Betzaida Kiser Ma - 06/01/2023 2:[address] Leal has reviewed patient's lumbar MRI results. Dr. Leal recommends the patient to proceed with a kyphoplasty but will need to be seen in the office. Per. Dr. Leal OK to double book on Thursday. Email has been sent to [facility] [employer] to see if they have a physician they recommend to the the patientin sooner. [facility] requires 10 business days for prior authorization and Dr. Leal is out of the office from 06/12/23-06/22/23. Awaiting response from [employer]. * Telephone Encounter - Betzaida Kiser Ma - 06/01/2023 1:[address] Leal does perform kyphoplasty. Will notify Dr. Leal of MRI results. * Telephone Encounter - Tammy Wang MA - 06/01/2023 1:26 PM EST Routed to [facility] pain clinical pool. Phone call to pain management in [place] to see if Dr. Leal performs or if patient needs to be sent to spine surgery. Left detailed message on nurse triage line to contact our office. Tammy Wang MA * Telephone Encounter - Zeny Lam APRN.KAYLA - 05/29/2023 3:36 PM EST Laura I spoke with our mutual patient Rich and went over recent MRI results, lumbar MRI showed compression fracture at L1. Discussed results and possible need for kyphoplasty. He is on coumadin. Do you or does anyone in your office do kyphoplasty or do you have a suggestion for who to send him to see. Thank you! Zeny Lam APRN.KAYLA documented in this encounterKettering Health [facility]02-23-2024 Miscellaneous Notes* Telephone Encounter - Zeny Lam APRN.KAYLA - 05/29/2023 2:02 PM EST PDMP website checked and validated. All prescriptions have been APPROPRIATELY filled. No suspiciousactivity was identified. 05/29/2023 by Zeny Lam APRN.KAYLA * Telephone Encounter - Tammie Munguia RN - 05/29/2023 12:47 PM EST Patient calls and states that he is [...] advise, Tammie Munguia RN documented in this encounterKettering Health [facility]02-23-2024 History of Present illness Narrative* Sury Giron RT(R) - 05/29/2023 1:40 PM EST Radiology Service Progress Note PATIENT NAME: Alex [...] PATIENT PRESENTS WITH AN IMPLANTABLE OR ATTACHED SERVICE ARCHITECT: No RADIOLOGY DEPARTMENT: MR; Exam(s) Completed: Spine: Lumbar spine PERIPHERAL IV DATA: Not applicable SIGNED BY: RT Chris(R) May 29, 2023 1:55 PM documented in this encounterKettering Health [facility]02-20-2024 Miscellaneous Notes* Telephone Encounter - Tammy Wang MA - 05/26/2023 2:33 PM EST Pt notified and verbalized understanding. Tammy Wang MA * Telephone Encounter - Zeny Lam APRN.CNP - 05/26/2023 2:04 PM EST INR much improved, please let him know to continue the 7.5 mg dose daily and repeat INR in 10 days (do on ThursdayJune 04 so we can ensure INR is in range prior to the weekend). Thanks! * Telephone Encounter - Corrina Velarde LPN - 05/26/2023 1:23 PM EST Last INR: 2.6 05/26/23 Home CoaguChek Current dose of coumadin: 7.5mg daily Last date of dose change: 05/19/23 Previous INR (date & result): 5.5 05/19/23 Additional clinical information or narrative: No diet changes, pt states his diet is all over the place as usual, not cosistent. No bleeding or bruising. Corrina Velarde LPN documented in this encounterKettering Health [facility]02-20-2024 Miscellaneous Notes* Telephone Encounter - Madelyn Cohen RN - 05/26/2023 1:22 PM EST MARITZA: 01/19/2023 w/Dr. Leal PLAN: The patient [...] Past PM Meds: NONE documented in this encounterKettering Health [facility]02-20-2024 History of Present illness Narrative* Edgar Loaiza DO - 05/26/2023 10:26 AM EST Images from the original note were not included. [facility] [place] DEPARTMENT OF VASCULAR SURGERY OUTPATIENT VISIT DATE May 26, 2023 OUTPATIENT VISIT TYPE ESTABLISHED SERVICE DATE: 05/26/2023 SERVICE TIME: 10:26 AM PRIMARY CARE PHYSICIAN: Zeny Lam APRN.THEATRICAL AGENT HISTORY OF PRESENT ILLNESS: Mr. Brooks is [...] to knees, as of 2008 --- in [place], neurologist thought related to alcohol; Has had EMG/NCS ?Related to sugar? -- see fasting glucose 2008; [...] mouth once daily. Adjust dose as directed basedon blood pressure readings polyethylene glycol 3350 17 gram/dose powder Take 1 Cap-Full by mouth once daily as needed for constipation. Dissolve dose in 4 - 8 ounces of liquid and take as directed. LORazepam (ATIVAN) 1 mg tablet Take 2 tablets by mouth at bedtime as needed for up to 120 days. Forinsomnia LORazepam (ATIVAN) 2 mg tab Take 1 [...] two times a day. 500mg daily) SAW THUY ORAL Take 400 mg by [...] 2023 TIME: 10:26 AM documented in this encounterKettering Health [facility]02-19-2024 Miscellaneous Notes* Telephone Encounter - Brenda Carlson - 05/25/2023 10:07 AM EST Pt informed , verbalized understanding. Brenda Carlson * Telephone Encounter - Zeny Lam APRN.CNP - 05/25/2023 9:17 AM EST Please return call and let him know [...] come with increased strain on the kidneys. * Telephone Encounter - Ramila Anand RN - 05/25/2023 8:06 AM EST Pt calling in regarding his MRI scheduled for this Thursday. He is wanting to make sure that an MRI without contrast would show muscular problems. Does he need to have contrast to show that? He states he wrote in his [employer] msg that his back was feeling better but he states that it really isn't muchbetter. But pt states if they make the MRI with and without contrast, does that mean the process has to start all over again with his insurance to get the MRI reapproved? He does not want to do that as he does not want to delay the MRI any further. Please return call to pt with msg. He does not want a [employer] msg. * Telephone Encounter - Brenda Carlson - 05/25/2023 7:55 AM EST Please see pt message Brenda Carlson documented in this encounterKettering Health [facility]02-17-2024 Miscellaneous Notes* Telephone Encounter - Rosalia Durand LPN - 05/23/2023 3:41 PM EST Patient calling with regards to his upcoming MRI. Patient denies any new or worsening symptoms of which a provider is not aware:Yes pt will call his pcp office Thursday to discuss further. Pt also sent a [employer] message to his pcp today. Rosalia Durand LPN documented in this encounterKettering Health [facility]02-16-2024 Miscellaneous Notes* Telephone Encounter - Zeny Lam APRN.CNP - 05/22/2023 7:42 AM EST PDMP website checked and validated. All prescriptions have been APPROPRIATELY filled. No suspiciousactivity was identified. 05/22/2023 by Zeny Lam APRN.KAYLA * Telephone Encounter - Corrina Velarde LPN - 05/21/2023 11:50 AM EST Patient has been identified by name and [...] you. Corrina Velarde LPN. documented in this encounterKettering Health [facility]02-13-2024 Miscellaneous Notes* Telephone Encounter - Tammie Munguia RN - 05/19/2023 2:09 PM EST Patient called and notified of coumadin/INR instructions. Patient voiced understanding and read back instructions. Tammie Munguia RN * Telephone Encounter - Zeny Lam APRN.CNP - 05/19/2023 12:17 PM EST Please call and advise him to hold his dose today and tomorrow and then resume coumadin at 7.5 mg daily after that and repeat INR in 1 week. * Telephone Encounter - Alvin He RN - 05/19/2023 12:01 PM EST [facility] Main lab reporting an urgent INR 5.5. Please advise pt. See below message also. Attempted to call pcp nurse- no answer. Notified Jennifer, working near Zeny's office, who agrees to inform Zeny. * Telephone Encounter - Tammie Munguia RN - 05/19/2023 11:55 AM EST Last INR: INR Home CoaguChek 5.5 05/19/2023 Current dose of coumadin is: 7.5 mg Thursday; 10 mg all other days. Last date of dose change: 04/10/2023. Previous INR (date and result): 2.6 05/05/2023 Additional Clinical Information or narrative: No diet changes except patient has not had much of an appetite since Percocet. Patient has not beeneating as much Patient stopped taking percocet today. Bruising to back and elbow due to previous fall. No alcohol at all or green leaf vegetables. documented in this encounterKettering Health [facility]02-13-2024 Miscellaneous Notes* Telephone Encounter - Graciela Parker RN - 05/19/2023 9:57 AM EST Patient calling with MRI question. Question answered. Graciela Parker RN documented in this encounterKettering Health [facility] Township02-12-2024 History of Present illness Narrative* Zeny Lam APRN.THEATRICAL AGENT - 05/18/2023 2:14 PM EST Images from the original note were not [...] Seen in the ED for this at [facility]. Percocet has not been helping a whole lot. In ER he had a CT spine lumbar. Some constipation but on percocet. Tried ice and helped a little. No numbness, tingling, weakness downthe legs and no loss of bowel or bladder control. MRI done 2022 lower lumbar degenerative change asnoted. Continued worsening of spinal stenosis at L4-L5, now severe. Would expect symptoms of spinal claudication and radiculopathy basedon the findings from this exam. No impingement [...] mouth once daily. Adjust dose as directed basedon blood pressure readings polyethylene glycol 3350 17 gram/dose powder Take 1 Cap-Full by mouth once daily as needed for constipation. Dissolve dose in 4 - 8 ounces of liquid and take as directed. LORazepam (ATIVAN) 1 mg tablet Take 2 tablets by mouth at bedtime as needed for up to 120 days. Forinsomnia LORazepam (ATIVAN) 2 mg tab Take 1 [...] Endarterectomy - 06/10/2019 [facility] Polyp - 11/29/2018 Alf (Current) Use of Anticoagulants - 09/15/2018 Recurrent [...] limited options for pain treatment. Zeny Lam APRN.CNP Portions of this note [...] from today's visit and in agreement with treatmentplan. Questions answered. Agrees to call the office [...] as well as compliance with taking medications. Age- appropriate health preventative measures were discussed. Return if symptoms worsen or fail to improve, for Keep next scheduled appointment.. Zeny Lam APRN-KAYLA documented in this encounterKettering Health [facility]02-09-2024 Miscellaneous Notes* Telephone Encounter - Tammy Wang MA - 05/15/2023 11:39 AM EST Pt notified and verbalized understanding. Tammy Wang MA * Telephone Encounter - Zeny Lam APRN.CNP - 05/15/2023 9:02 AM EST We have previously prescribed him percocet so yes, we can send in the prescription. I sent this in for him. Please let him know. * Telephone Encounter - Maribel Oden LPN - 05/15/2023 8:23 AM EST Pt called and he went to ER due to fall. Pt reports has severe pain and was given Percocet and thishelps but he is not going to have enough to last till Thursday apt. Pt reports he is taking this every 6 hours. Pt asking if you are able to maddie 4 or 5 in till his apt on Thursday and then this can be discussed. Please advise pt. Okay to leave a detailed message. Maribel Oden LPN documented in this encounterKettering Health [facility] Township02-08-2024 Miscellaneous Notes* Telephone Encounter - Tala Torres LPN - 05/14/2023 1:51 PM EST Patient calling from [facility] ER wanted to make sure that Zeny gets all of his records from the ER. He said may have to see administrative services specialist. He did not have any brain bleed from his fall. He said just having a lot of pain and the morphine is not helping him. * Telephone Encounter - Bonnie Sharif APRN.CNS - 05/14/2023 12:25 PM EST Noted, agree with ER. * Telephone Encounter - Antoinette Meadows RN - 05/14/2023 11:04 AM EST FYI: Patient calls to report a fall with severe back pain with movement 10/10 and hit head on floor (on Coumadin). Nurse triage completed and recommends ER Now or PCP triage. With the severe back pain andbeing on Coumadin recommended ED now. Patient agreeable [...] with movement. Rates pain a 4 with noactivity. Patient moaning in pain the entire time on phone and reports he was lying in bed. 9. TETANUS: NA 10. OTHER SYMPTOMS: Back Pain Protocols used: Head [id number] documented in this encounterKettering Health Washington Township02-07-2024 Miscellaneous Notes* Telephone Encounter - Celia James LPN - 05/13/2023 9:44 AM EST Patient has been identified by name and [...] Thank you. Celia James. documented in this encounterKettering Health [facility] Township02-01-2024 Miscellaneous Notes* Telephone Encounter - Kari Briones LPN - 05/07/2023 2:45 PM EST See MyChart message, Patient does not want filled at this time. Kari Briones LPN * Telephone Encounter - Alvin He RN - 05/06/2023 4:50 PM EST Pt requesting refill on the 2 mg ativan. Reports he checked with [facility] and they do have it. Reports he is almost out of the 1 mg (ordered b/c [facility] didn't have the 2 mg last time). Patient has been identified by name and date of : Yes, Provider Gen[place] Date 05-06-23 Time 4:56pm Patient phones for refill(s): Requested Prescriptions Pending Prescriptions Disp Refills LORazepam (ATIVAN) 2 mg tab 90 tablet 1 Sig: Take 1 tablet by mouth at bedtime as needed (insomnia) for up to 180 days. Date of last office visit in primary care: 03/24/2023 Date of next office visit in primary care: 07/27/2023 Please advise. Thank you. Alvin He RN. documented in this encounterKettering Health Washington Township12-19-2023 Miscellaneous Notes* Telephone Encounter - Zeny Lam APRN.CNP - 03/24/2023 12:18 PM EST Noted. * Telephone Encounter - Alvin He RN - 03/24/2023 10:50 AM EST Patient phoned to report low BP readings. [...] he feels a regular rhythm. Re-check after drinkingwater is 91/63 (95) @ 11:55. 2. ONSET: [...] [place]. No CP. No SOB. States he chino little lightheaded. Reports he is urinating without issues- urinated 5 x's through the night, which, according to patient is normal. 8. : N/A . Protocols used: Blood Pressure - [id number] documented in this encounterKettering Health Washington Township12-15-2023 Miscellaneous Notes* Telephone Encounter - Gabby Rm LPN - 03/20/2023 3:21 PM EST Would just need a standing order for INR placed for [facility] in order for INR to come to you. * Telephone Encounter - Zeny Lam APRN.KAYLA - 03/20/2023 1:54 PM EST So does new lab order needs placed in epic or sent to [facility]? * Telephone Encounter - Gabby Rm LPN - 03/20/2023 11:23 AM EST PATIENT NOTIFIED OF SAME. States he has the INR drawn here at [facility] lab. * Telephone Encounter - Zeny Lam APRN.KAYLA - 03/20/2023 10:15 AM EST Please let him know that yes, it is okay to use miralax to help with the constipation. Also he had requested we be associated with the INR orders for him. Can we verify if he is home testing for this? If yes, what company is he going through for the INR testing? * Telephone Encounter - Alvin He RN - 03/20/2023 9:18 AM EST Patient reports he is taking pantoprazole, and it's working fine. Reports he has been having constipation- daily stools are very hard- so much so that it is blocking his toilet- and he has had engineering technical specialist visit 3 x's in the past week to unblock it. Reports he drinks 80 oz water daily, plus 4 cups coffee in the morning. Patient reports he researched pantoprazole and learned that it can cause constipated stools. Patient asking pcp is it ok for him to take miralax while taking pantoprazole? Please phone patient with reply. documented in this encounterK[facility]12-13-2023 Miscellaneous Notes* Telephone Encounter - Tammy Wang MA - 03/18/2023 1:18 PM EST Patient notified and verbalized understanding. Anti coag tracker updated. Tammy Wang MA * Telephone Encounter - Mani Edwards MD - 03/18/2023 1:12 PM EST Continue present dose. Recheck in 2 to 3 weeks. Looks like INR has been labile so INR checked every 1 to 2 weeks the past couple months at least, so would check in 2 to 3 weeks to see if remains stable. Okay to work in somewhere around the holidays. * Telephone Encounter - Corrina Velarde LPN - 03/18/2023 11:32 AM EST Last INR: 2.3 03/18/23 Current dose of coumadin: 10mg Tues - Thurs - Sun. 7.5 mg all other days Last date of dosage change: 02/18/23 changed d/t INR of 1.9 Previous INR (date & result): 03/04/23 2.3 Additional clinical information or narrative: No missed doses, no bleeding issues, no wine, no antibiotics. Corrina Velarde LPN documented in this encounterKet[facility]12-05-2023 Miscellaneous Notes* Telephone Encounter - Tammie Munguia RN - 03/10/2023 11:51 AM EST Patient calls back and states that [facility] will only do prescription if it is 120 tablets. Patient asking for 120 tablets with one refill to be sent in. See message below: * Telephone Encounter - Brandi Lambert LPN - 03/10/2023 11:41 AM EST Pt calls to report that [facility] is telling him that lorazepam 2 mg (RX 03/09/23) is backordered andthey are not sure when they will get the 2 mg. This has been on backorder since last week. Ky Bacondokolby have 1 mg tabs and Ky Bacon advised pt to call provider to request [...] patient. Brandi Lambert LPN documented in this encounterKet[facility]11-29-2023 Miscellaneous Notes* Telephone Encounter - Cyndy Whelan RN - 03/04/2023 3:35 PM EST Pt called and is notified of providers results and instructions. Pt voices understanding. Sent information to Pt through [employer]. He states he isn't trying to lose weight, he's right where he wants to be. He states he uses an scot called [employer] to track his Carbs and sugars. Cyndy Whelan RN * Telephone Encounter - Zeny Lam APRN.KAYLA - 03/04/2023 2:37 PM EST Goal INR is 2-3 so he is [...] in the body because the carbs we eatare broken down in to sugars in the [...] intake of protein as you reduce carbs. * Telephone Encounter - Alvin He RN - 03/04/2023 12:13 PM EST Last INR: INR Home CoaguChek 2.3 03/04/2023 [...] age for carbs and sugars? Reports [facility] states the max carbs should be 130 g / day, and sugar should be no more than 36 g / day, and he is way under that. Please advise patient. documented in this encounterK[facility]11-27-2023 Miscellaneous Notes* Telephone Encounter - Judi Shin - 03/02/2023 9:39 AM EST Pt scheduled next lab appt to check A1C on June 02, 2023. Will need lab order attached to that appt. documented in this encounterKettering [facility]11-24-2023 Miscellaneous Notes* Telephone Encounter - Mohsen Wayne - 02/27/2023 4:22 PM EST Pt returned call to office, notified of provider response. He verbalized understanding. Message sent to pt MC also d/t pt request. Mohsen Wayne * Telephone Encounter - Gabby Rm LPN - 02/27/2023 4:09 PM EST LEFT MESSAGE FOR PATIENT TO CALL OFFICE. * Telephone Encounter - Zeny Lam APRN.CNP - 02/27/2023 4:03 PM EST Hgba1c did increase slightly from prior value [...] should discuss medication options at that time. * Telephone Encounter - Antoinette Meadows RN - 02/27/2023 8:07 AM EST Patient calls to request that his PCP review his A1C results and advise on her thoughts. Hemoglobin A1C 4.3 - 5.6 % 5.9 High Patient doesn't feel test results are okay and wants PCP opinion. Antoinette Meadows RN documented in this encounterKet[facility]11-21-2023 Telephone encounter Note * Telephone Encounter - Carmen Pham - 02/24/2023 3:41 PM EST 04/20/[address] ROSENBERG PATIENT TO STAY ON COUMADIN [facility]11-21-2023 Miscellaneous Notes* Telephone Encounter - Carmen Pham - 02/24/2023 3:41 PM EST 04/20/[address] ROSENBERG PATIENT TO STAY ON COUMADIN documented in this encounterKettering [facility]11-20-2023 Miscellaneous Notes* Telephone Encounter - Zeny Lam APRN.KAYLA - 02/23/2023 2:41 PM EST Please contact to help with scheduling for appt with general surgery to discuss EGD. Wants to see Dr. Rosenberg. * Telephone Encounter - Tammie Munguia RN - 02/23/2023 1:19 PM EST Patient calls and states that provider had discussed patient getting an abdominal scope done. Patient which scope did provider want provider to get done? Patient would like Dr. Rosenberg to do the testing. Patient also asking for a refill on percocet. Please review and advise, Tammie Munguia RN documented in this encounterKettering [facility]11-15-2023 Miscellaneous Notes* Telephone Encounter - Gabby Rm LPN - 02/18/2023 2:40 PM EST PATIENT NOTIFIED OF SAME. Tracker updated. At this time he did not want to change dosing to allow for a serving of green vegetable each week. States usually doesn't eat them that often. * Telephone Encounter - Mani Edwards MD - 02/18/2023 12:43 PM EST Patient had broccoli in the past and INR dropped. If likes broccoli, can increase dose of coumadin so may have some broccoli weekly and adjust dose as well as diet as needed For now, 10mg today then resume usual dose if not wants to increase dose and eat broccoli once weekly. Recheck 2 weeks. * Telephone Encounter - Tala Torres LPN - 02/18/2023 11:00 AM EST Last INR: INR Home Meet 1.9 02/18/2023 Current dose of coumadin is: 10 mg Eucm-Yjp-Naf and 7.5 mg all other days. Last date of dose change: 01/14/2023. Previous INR (date and result): 02/04/2023 was 2.6 Additional Clinical Information or narrative: no missed doses, no bleeding issues, no antibiotics, last greens he ate broccoli on Thursday and last alcohol was Thursday. Can leave patient message with instructions. documented in this encounterK[facility]11-07-2023 Miscellaneous Notes* Telephone Encounter - Zeny Lam APRN.KAYLA - 02/10/2023 12:09 PM EST Ordered. * Telephone Encounter - Alvin He RN - 02/10/2023 11:44 AM EST Patient asking Zeny, to please order labs for his appt on 07-27-23 for a Wellness Physical. Pended labs patient requested, and asking pcp to order any other labs he may need. Patient already has lab appt scheduled for 2 weeks prior to the appt, on 07-13-23. documented in this encounterK[facility]11-06-2023 Miscellaneous Notes* Telephone Encounter - Brandi Lambert LPN - 02/09/2023 11:34 AM EST Pt called to reiterate that he does not need a new rx for pantoprazole. Brandi Lambert LPN documented in this encounterK[facility]11-06-2023 Miscellaneous Notes* Telephone Encounter - Brandi Lambert LPN - 02/09/2023 11:33 AM EST Pt reports he has a rx [facility]ole [facility]. Brandi Lambert LPN documented in this encounterK[facility]11-01-2023 Miscellaneous Notes* Telephone Encounter - Zeny Lam APRN.CNP - 02/04/2023 1:26 PM EDT Noted and ok with me * Telephone Encounter - Angi Chua LPN - 02/04/2023 1:15 PM EDT Patient would like to continue coming in every 2 weeks. States that a lot changes in 4 weeks and hedoes not feel comfortable going that long. Patient is scheduled for 2 weeks out. * Telephone Encounter - Zeny Lam APRN.CNP - 02/04/2023 11:52 AM EDT Records show INR goal is 2-3 and we have stayed in that range so okay to continue current dose and since this has been stable the last several checks it is okay to repeat the INR in 4 weeks this time. * Telephone Encounter - Maribel Oden LPN - 02/04/2023 11:21 AM EDT Last INR: INR Home CoaguChek 2.6 02/04/2023 Current dose of coumadin is: 10 mg on Tues, Fri, Sun and then 7.5 all other days. Last date of dose change: 01/14/23. Previous INR (date and result): 01/22/23, 2.5 Additional Clinical Information or narrative: yes: Pt denies any diet changes, no alcholol, bleeding, bruising, ATB. No missed doses. Please advise pt back with a detailed message left on his answer machine. Please do not ask to havept call back. Maribel Oden LPN documented in this [facility]10-26-2023 Miscellaneous Notes* Telephone Encounter - Rosalia Umanzor LPN - 01/29/2023 12:16 PM EDT Patient has been identified by name and [...] primary care: 07/27/2023 Please advise. Thank you. Rosalai Umanzor LPN. documented in this [facility]10-26-2023 Miscellaneous Notes* Telephone Encounter - Rosalia Umanzor LPN - 01/29/2023 12:15 PM EDT Patient has been identified by name and [...] you. Rosalia Umanzor LPN. documented in this encounterK[facility]10-20-2023 History of Present illness Narrative* Zeny Lam APRN.THEATRICAL AGENT - 01/23/2023 1:46 PM EDT SUBJECTIVE Alex Brooks is a 77 year old male here today for a check up on his medical problems. Chief Complaint Patient presents with: Establish Care HPI Alex Brooks is a 77 year old male. Has been following for GI issues, gastritis. Slowly continues to improve. Bowel issues resolving. Taking Pepcid and Protonix. On coumadin for history of priorPes. Most recent INR in range, was 2.5. [...] Thu and Sundays and 2 tablets (10 mg)all other days) LORazepam (ATIVAN) 2 mg tab [...] Endarterectomy - 06/10/2019 Colonic Polyp - 11/29/2018 Alf (Current) Use of Anticoagulants - 09/15/2018 Recurrent [...] On coumadin. INR at goal range. 3. FDC (current) use of anticoagulants - ICD9: V58.61, [...] Percocet as needed, very rare use, signed [facility]. 7. Primary hypertension - ICD9: 401.9, ICD10: I10 - Controlled - Continue current medications - Recommend home blood pressure monitoring, to bring results to next visit - Encouraged sodium restriction, DASH or Mediterranean diet - Recommend regular aerobic exercise I spent a total of 30 minutes on the date of the service which included preparing to see the patient, [id number] patient care, completing clinical documentation, obtaining and/or reviewing separately obtained history, performing a medically appropriate examination, counseling and educating the pat ient/family/caregiver, ordering medications, tests, or procedures, communicating with other HCPs (not separately reported), independently interpreting results (not separately reported), communicatingresults to the patient/family/caregiver, and care coordination (not [...] from today's visit and in agreement with treatmentplan. Questions answered. Agrees to call the office [...] as well as compliance with taking medications. Age- appropriate health preventative measures were discussed. Return in about 6 months (around 07/25/2023) for Wellness physical.. Zeny Lam APRN-KAYLA documented in this encounterK[facility]10-19-2023 Miscellaneous Notes* Telephone Encounter - Haydee Lee LPN - 01/22/2023 4:51 PM EDT Patient notified of providers message regarding coumadin instructions and verbalized understanding. * Telephone Encounter - Bonnie Sharif APRN.CNS - 01/22/2023 4:44 PM EDT Continue with Coumadin dose unchanged and check INR in 2 weeks * Telephone Encounter - Arti Baxter APRN.CNP - 01/22/2023 12:48 PM EDT This should go to his LICENSED MENTAL HEALTH PROFESSIONAL Sara Baxter or patient information coordinator if she does not do INR dosing. Thank you Arti Baxter APRN.KAYLA * Telephone Encounter - Cyndy Whelan RN - 01/22/2023 12:07 PM EDT Last INR: INR Home CoaguChek 2.5 01/22/2023 [...] antibiotics. No missed doses. documented in this encounterKettering [facility]10-16-2023 Miscellaneous Notes* Telephone Encounter - Maribel Oden LPN - 01/19/2023 2:57 PM EDT Pt called checking on status on message below. Please notify pt with your response and if medication has been increased and sent to the pharmacy. Maribel Oden LPN * Telephone Encounter - Tammie Munguia RN - 01/16/2023 12:56 PM EDT Patient calls and is asking if provider can increase the dose of rosuvastatin? Patient states it was recommended by Dr. Loaiza that he would benefit from increasing the dose of the statin medication (see My Chart Message from today 01/16/2023). If agreeable please send new dose to [facility]. Please review and advise, Tammie Munguia RN documented in this encounterKettering [facility]10-16-2023 History of Present illness Narrative* Mckinley Leal MD - 01/19/2023 12:54 PM EDT [facility] Date: January 19, 2023 - 12:55 PM Chief Complaint: back pain SUBJECTIVE: Mr. Brooks presents to the [facility] for a follow up appointment regarding chronic [...] He is currently receiving medications through the [facility]. He is not having difficulty with his [...] to knees, as of 2008 --- in [place], neurologist thought related to alcohol; Has had EMG/NCS ?Related to sugar? -- see fasting glucose 2008; [...] All prescriptions have been APPROPRIATELY filled. No suspiciousactivity was identified. 01/19/2023 by Mckinley Leal MD Narcotic Agreement reviewed and signed?: N/A on January 19, 2023 Urine Panel: No results found for: UQCANN, UQBNZL, UNE0GTQ, UQAMPH, UQMAMP, UQBUPRE, UQNORBUP, UQMTHD, UQEDDP, UQTRAM, [...] record for those providers who practice within [facility] or with access to [facility] via MD Connect, or via letter. 1. [...] treatment plans will be discussed during your follow- up appointment. If you do not have a follow-up appointment and wish to discuss any issues, please set up an appointment. 3. It is my practice to not fill disability or any other insurance-related forms/documentation. Allof the office notes, study results, and other pertinent documentation generated as part of your evaluation will be available to you and to your Primary Care Physician (PCP). Use of this material to complete such forms will be at the discretion of your PCP/referring physician. documented in this encounterKettering [facility]10-11-2023 Miscellaneous Notes* Telephone Encounter - Cyndy Whelan RN - 01/14/2023 4:59 PM EDT Pt called and is notified of providers results and instructions. Pt voices understanding. Cyndy Whelan RN * Telephone Encounter - Franc Hills MD - 01/14/2023 4:47 PM EDT After reviewing recent sequence of changes, I agree with recommended dose and recheck by Zeny Lam. * Telephone Encounter - Kari Briones LPN - 01/14/2023 2:25 PM EDT Patient does not agree with below recommendation asking for Dr. Hills to reiew Rich is wanting to do 10mg Coumadin all days but 7.5mg only on Thursday, feels that it is due to eating broccoli, typically runs 2.2 Kari Briones LPN * Telephone Encounter - Zeny Lam APRN.THEATRICAL AGENT - 01/14/2023 12:36 PM EDT Okay to continue current coumadin dose as he took it which would be 10 mg on , Thu, Thu and then the 7.5 mg all other days. Repeat INR in 1 week to ensure stable and still in goal range 2-3 givenrecent fluctuations in INR. Blood counts are stable so no signs of GI issues being infection related. Liver function normal. Blood sugar up but in acceptable range for middle of the day/not fasting. He should make sure he is getting enough fluids since kidney number (BUN) is up a touch. * Telephone Encounter - Cyndy Whelan RN - 01/14/2023 11:49 AM EDT Pt reports he also took 10 mg Thu01/13/23 as he didn't get his INR done until Thursday the day after he was supposed to. Pt also asking if provider could go over CBC and CMP results. Please call and advise. * Telephone Encounter - Maribel Oden LPN - 01/14/2023 11:00 AM EDT Last INR: INR Home CoaguChek 2.2 01/14/2023 [...] back. Maribel Oden LPN documented in this encounterKettering [facility]10-06-2023 Miscellaneous Notes* Telephone Encounter - Kristina Youssef LPN - 01/09/2023 4:01 PM EDT Patient notified of results and provider's instructions. Patient verbalizes understanding. Kristina Youssef LPN * Telephone Encounter - Mani Edwards MD - 01/09/2023 3:49 PM EDT Take 10 mg today then 7.5 mg daily except 10 mg on Thursday. Check INR next Thursday or Thursday Would recommend eating just as broccoli per week as used to prior to having recent surgery/procedure rather than keep pushing broccoli more than before . * Telephone Encounter - Alvin He RN - 01/09/2023 11:11 AM EDT Last INR: INR Home CoaguChek 1.5 01/09/2023 Current dose of coumadin is: 7.5 Thu, 10 mg all other days. Coumadin on hold 01-08, and 01-07 for INR5-3. Patient also has been eating broccoli. Last [...] the past 2 days. documented in this encounterKettering [facility]10-04-2023 Miscellaneous Notes* Telephone Encounter - Tala Torres LPN - 01/07/2023 4:04 PM EDT Patient returned call and said he had forgotten that he had ablation done Thursday before last per Dr Leal. He thinks that may have affected his INR. * Telephone Encounter - Gabby Rm LPN - 01/07/2023 1:54 PM EDT PATIENT NOTIFIED OF SAME. * Telephone Encounter - Mani Edwards MD - 01/07/2023 1:14 PM EDT Suspect GI issues affecting INR, especially if [...] Hold coumadin 2 days then INR Thursday * Telephone Encounter - Antoinette Meadows RN - 01/07/2023 1:05 PM EDT Patient calls back with information he finds [...] very light, lots of water, j luis louie,diet 7 up, applesauce, protein toast, and some chicken. Patient also wanted to let provider know that his bruising from ast weeks injection site remains the size of quarter dark purple in color but fading. He reports that usually bruises are gone within acouple of day. Antoinette Meadows RN * Telephone Encounter - Tammie Munguia RN - 01/07/2023 12:49 PM EDT Last INR: INR Home CoaguChek 5.3 01/07/2023 Current dose of coumadin is: 7.5 mg on Wednesdays; 10 mg all other days. Last date of dose change: 12/31/2022. Previous INR (date and result): 3.2 12/31/2022 Additional Clinical Information or narrative: Patient has not had any alcohol since 12/19/2022. Patient was having stomach issues of diarrhea and vomiting. Patient is now constipated. Patient had hadbowel movements once a day but bowel movements are hard as a rock. Patient has been taking dulcolax sodium 500 mgs for constipation issues. Asking what else he can take? documented in this encounterKettering [facility]09-26-2023 Telephone encounter Note * Telephone Encounter - Zeny Lam APRN.CNP - 12/30/2022 1:13 PM EDT I'm okay with seeing him, okay to put him on my schedule [facility]09-26-2023 Miscellaneous Notes* Telephone Encounter - Zeny Lam APRN.CNP - 12/30/2022 1:13 PM EDT I'm okay with seeing him, okay to put him on my schedule * Telephone Encounter - Judi Shin - 12/30/2022 8:49 AM EDT Pt called to scheduled with Zeny in [facility] to [facility] care. States he saw her yesterday and asked if he could have her as a primary care. States she said yes. Please advise if this is okay. Pt is concerned for privacy and does not what Dr. Hills to know of his decision. documented in this encounterKettering [facility]09-26-2023 Telephone encounter Note * Telephone Encounter - Judi Shin - 12/30/2022 8:49 AM EDT Pt called to scheduled with Zeny in April to [facility]. States he saw her yesterday and asked if he could have her as a primary care. States she said yes. Please advise if this is okay. Pt is concerned for privacy and does not what Dr. Hills to know of his decision. [facility] Work Phone: [phone] Miscellaneous Notes* Telephone Encounter - Tammie Rg RN - 12/29/2022 5:08 PM EDT Patient calling with request for health information: patient requesting health information about Moderna Vaccine, reviewed information from CDC , and verbalized understanding of information provided.Patient denies any new or worsening symptoms of which a provider is not aware: Yes. Source: https://www.cdc.gov/vaccines/covid-19/dyyy-wd-bxwxomf/moderna/reactogenicity.htm l If you have any questions, you can call Nurse back tender insulation board back at anytime OR speak to your provider's office when they open in the morning. documented in this encounterKettering Health [facility]09-25-2023 History of Present illness Narrative* Zeny Lam APRN.KAYLA - 12/29/2022 3:01 PM EDT SUBJECTIVE Alex Brooks is a 77 year [...] The weekend prior to this he ate [place]dean food with a lot of hot sauce. 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 - 06/19/2020 Balance Problem - 03/12/2020 History of Left-Sided Carotid Endarterectomy - 06/10/2019 Colonic Polyp - 11/29/2018 Alf (Current) Use of Anticoagulants - 09/15/2018 Recurrent Pulmonary Embolism ([facility]) - 05/08/2014 Comment: 1st episode 2009, 2nd [...] which included preparing to see the patient, [id number] patient care, completing clinical documentation, obtaining and/or reviewing separately obtained history, performing a medically appropriate examination, counseling and educating the pat ient/family/caregiver, ordering medications, tests, or procedures, independently interpreting [...] from today's visit and in agreement with treatmentplan. Questions answered. Agrees to call the office [...] as well as compliance with taking medications. Age- appropriate health preventative measures were discussed.. Return if symptoms worsen or fail to improve, for Keep next scheduled appointment.. Zeny Lam APRN-THEATRICAL AGENT documented in this encounterKettering [facility]09-21-2023 Miscellaneous Notes* Telephone Encounter - Alvin He RN - 12/25/2022 9:57 AM EDT Patient reports he vomited 3 days ago, one time. Reports he had diarrhea 2-3 days ago, and now onlyhaving a lot of gas. Reports he ate [place]dean on the 15th and 17th, but doesn't think that has anything to do with it. Reports he is now eating a bland diet and getting plenty of clear liquids, and thinks he's on the mend. States he doesn't need an appt right now, but if condition worsens he plans tocall back to schedule appt with Dede Masterson. documented in this encounterKettering [facility]09-13-2023 Miscellaneous Notes* Telephone Encounter - Mani Edwards MD - 12/17/2022 1:07 PM EDT Noted. Mani Edwards MD * Telephone Encounter - Corrina Velarde LPN - 12/17/2022 11:15 AM EDT Disregard question below regarding the covid vaccine, question was already answered by Dr Leal. Corrina Velarde LPN * Telephone Encounter - Antoinette Meadows RN - 12/17/2022 10:00 AM EDT Patient calls to ask if Dr. Edwards could review his MC request since it has to do with Coumadin and INR and Dr. Hills is out. MC message: I go in for Ablation with Dr. Leal on December 23. I stop Cumadin on the and low does aspirinon the . What daily doseages of Cumadin [...] ablation? Rich Meadows RN documented in this encounterK[facility]09-13-2023 Miscellaneous Notes* Telephone Encounter - Antoinette Meadows RN - 12/17/2022 9:55 AM EDT See TE 12/17/2022. Antoinette Meadows RN documented in this encounterKettering [facility]09-06-2023 Nurse Note* Betzaida Kiser Ma - 12/10/2022 11:07 AM EDT PROMIS-10 Global Health In general, would you [...] bothered by emotional problems such as feeling anxious,depressed or irritable?: Never In the past 7 [...] : Betzaida Kiser Ma) documented in this encounterKettering [facility]09-06-2023 History of Present illness Narrative* Mckinley Leal MD - 12/10/2022 9:46 AM EDT [facility] Date: December 10, 2022 - 9:47 AM Chief Complaint: Back pain SUBJECTIVE: Mr. Brooks presents to the [facility] for a follow up appointment regarding chronic lower back pain. He states that since the last visit symptoms have been persistent. The pain is located inthe bilateral lumbar region and does not radiate. // The pain is described as aching, radiating, and sharp and is rated as 8 on a scale of 0-10. The patient Denies leg pain. Symptoms interfere with physical activity and walking. The pain is exacerbatedby lying down and walking. The pain is [...] to knees, as of 2008 --- in [place], neurologist thought related to alcohol; Has had EMG/NCS ?Related to sugar? -- see fasting glucose 2008; [...] All prescriptions have been APPROPRIATELY filled. No suspiciousactivity was identified. 12/10/2022 by Mckinley Leal MD Narcotic Agreement reviewed and signed?: N/A on December 10, 2022 Urine Panel: No results found for: UQCANN, UQBNZL, FDO2QVV, UQAMPH, UQMAMP, UQBUPRE, UQNORBUP, UQMTHD, UQEDDP, UQTRAM, [...] PROMIS Profile Date completed: 12/10/2022 Scanned into [facility]: Yes See nursing note. Intervention: This is [...] Dr. Franc Hills MD cc: Franc Hills [id number] [facility] [id number] Results of consultation to be transmitted via electronic medical record for those providers who practice within [facility] or with access to [facility] via MD Connect, or via letter. 1. [...] treatment plans will be discussed during your follow- up appointment. If you do not have a follow-up appointment and wish to discuss any issues, please set up an appointment. 3. It is my practice to not fill disability or any other insurance-related forms/documentation. Allof the office notes, study results, and other pertinent documentation generated as part of your evaluation will be available to you and to your Primary Care Physician (PCP). Use of this material to complete such forms will be at the discretion of your PCP/referring physician. documented in this encounterKettering [facility]09-05-2023 Miscellaneous Notes* Telephone Encounter - Kari Briones LPN - 12/09/2022 3:45 PM EDT [facility], Patient does have a refill of Lorazepam (Ativan), can fill tomorrow. 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 Visual acuity with correction is 20/25 RE and 20/30 LE. IOP is 14 /14. Anterior segment exam is significant for centered PCL. Dilated fundus examination demonstrates closed hole. OCT with reconstution ofEZ with abnormal foveal contour LE. Right eye [...] examined Alex Brooks. I have discussed the caseand the management of this patient's care with the Resident/Fellow, if applicable. I also have reviewed and agree with the assessment and plan as stated above and agree with all of its relevant components. documented in this encounterKettering [facility]09-02-2023 Miscellaneous Notes* Telephone Encounter - Kristina Youssef LPN - 12/06/2022 8:59 AM EDT My chart message to pt. * Telephone Encounter - Franc Hills MD - 12/05/2022 6:48 PM EDT 1) I doubt the vaccines impact his INR. 2) If we substitute coumadin, it will be Eliquis 5 mg twice daily. * Telephone Encounter - Antoinette Meadows RN - 12/05/2022 1:04 PM EDT Patient calls to check on provider response. Notified patient provider hadn't got a chance to review but we would call him once reviewed and advised on. Antoinette Meadows RN * Telephone Encounter - Tammie Munguia RN - 12/04/2022 1:16 PM EDT Patient calls and states that he had flu shot on Thursday and RSV shot on Thursday . Patient asking ifthis can affect his INR results? Patient states that government is working on getting certain medications for patient's cheaper. Oneof those medications is Eliquis (which is currently too expensive). Patient asking for future references if provider was to put patient on Eliquis, which dosage would provider start patient on? Please review and advise, Tammie Munguia RN documented in this encounterKettering [facility]2023 Miscellaneous Notes* Telephone Encounter - Kari Briones LPN - 12/04/2022 9:14 AM EDT Patient notified, verbalized understanding. Anticoag Tracker updated. Kari Briones LPN * Telephone Encounter - Franc Hills MD - 12/03/2022 9:40 PM EDT Take 5 mg for one day. Then continue Coumadin dose 10 mg daily. INR in 2 weeks. * Telephone Encounter - Angi Chua LPN - 12/03/2022 11:35 AM EDT Last INR: INR Home CoaguChek 3.3 12/03/2022 [...] the cost would be. documented in this encounterKettering Health [facility]08-30-2023 Miscellaneous Notes* Telephone Encounter - Judi Jacobson - 12/03/2022 10:16 AM EDT Request to hold anticoagulation form sent to scanning. Date signed 11/26/22 documented in this encounterKettering Health [facility]08-29-2023 Miscellaneous Notes* Telephone Encounter - Antoinette Meadows RN - 12/02/2022 1:03 PM EDT Patient calls to let provider office know Mahendrazamzammaria alejandra will be faxing over vaccination update for flu shot and RSV injections which patient recently received. Will wait to update until receive records. Patient also going to be having INR done soon and not sure if it will effect those results so he isupdating staff on that as well. Antoinette Meadows RN documented in this encounterKettering Health [facility]08-28-2023 Miscellaneous Notes* Telephone Encounter - Sara Baxter APRN.CNP - 12/01/2022 3:50 PM EDT Noted Sara Baxter APRN.CNP * Telephone Encounter - Maribel Oden LPN - 12/01/2022 3:10 PM EDT Pt called to let you know he got a flu shot today 12-01-22 [facility] in [place]. Pt reports he will be getting an RSV injection tomorrow. He will be getting his INR done on 12-03-22. [facility] to send you confirmation on vaccines given with information on the vaccines. Maribel Oden LPN documented in this encounterKettering Health [facility]08-21-2023 History of Present illness Narrative* Franc Hills MD - 11/24/2022 5:45 PM EDT This note was created using [employer]. Subjective Patient presents with: F/U 3 Month Alex Brooks is a 77 year old male was here for chronic opioid management. He saw neurosurgeonand has decided to seek another nerve ablation with Dr. Leal instead of spine surgery. This is scheduled 12/23/22. Historically he has been able to come off Percocet after this procedures for months if not a few years. Adapted from CDC guidelines: Opioids can provide short term benefits for moderate to severe pain. Scientific evidence is lackingfor benefits to treat chronic pain. Before prescribing [...] OPIOID therapies are appropriate. (NSAIDs, TCAs, SNRI, anti- convulsants, exercise or physical therapy, cognitive behavioral therapy) [...] ablation scheduled. He is hoping to come offPercocet.. - 4. Evaluate RISK of HARM or [...] (Gastroesophageal Reflux Disease) Recurrent Pulmonary Embolism (Hcc) Alf (Current) Use of Anticoagulants Colonic Polyp History [...] Cuff Size: Large Adult) Pulse 72 Wt 79.1kg (174 lb 4.8 oz) BMI 23.00 kg/m [...] A1C Franc Hills MD documented in this encounterKettering [facility]08-16-2023 Miscellaneous Notes* Telephone Encounter - Kamila Eng RN - 11/19/2022 8:33 AM EDT Secured message sent to Dr. Leal to confirm he can proceed with Bilateral RFA's during once procedure due to Coumadin use * Telephone Encounter - Betzaida Kiser Ma - 11/18/2022 10:11 AM EDT Called and spoke with the patient. The [...] ablations. OK to send this information via [employer]. Patient instructed to hold the following medication(s) prior to the procedure: - Coumadin for 5 days prior - ASA 81 for 2 days prior A request to hold Coumadin and ASA81 will be sent to the patient's PCP. Pre-procedure instructions reviewed over telephone and a list of instructions were sent via [employer]. Patient verbalized understanding with no additional questions or concerns at this time. The patient has asked for a phone call to let him know if Dr. Leal agrees to do bilateral RFA in the same day or not. * Telephone Encounter - Tammie Rod RN - 11/14/2022 10:36 AM EDT Hi my name is Alex Brooks for Dr. Leal and that is the patient's name. My phone number [phone]. I forgot all the other stuff you needed. I have an appointment with Dr. Leal on 17 December which is fine I do not wanna cancel that appointment but I have some questions for his nurseprior to that and I called yesterday and still no one has called me back so I would like to speak to Dr. Leal's nurse about some questions that I have something for my insurance and something for myself and that's about it so if someone would please call me at [phone] and once again it's Alex Brooks and I'm a previous patient of Dr. Leal and as I said I have an appointment right nowthat I don't want canceled for December 17 and that's about it. Thank you * Telephone Encounter - Tammie Rod RN - 11/12/2022 4:02 PM EDT Received voicemail 11-12-22 at 10:04 AM. Hi my name is Alex Brooks. My phone number is [phone]. I live in [place] by the way I made an appointment [...] me, does he have enough information. Should Trimble ahead and schedule it. So I have [...] Level: L4-5 and L5-S1 documented in this encounterKettering [facility]08-15-2023 Miscellaneous Notes* Telephone Encounter - Betzaida Kiser Ma - 11/18/2022 10:53 AM EDT History of injection/rfa: 05/10/2020 - Bilateral L4-5 and L5-S1 Lumbar Facet Medial Branch Nerve Radiofrequency Ablation under fluoroscopy - CPT 70579 and 23489 03/20/2014 - Left L4-5 and L5-S1 Lumbar Facet Medial Branch Nerve Radiofrequency Ablation under fluoroscopy - CPT 34184 and 06627 03/13/2014 - Right L4-5 and L5-S1 Lumbar Facet Medial Branch Nerve Radiofrequency Ablation under fluoroscopy - CPT 74725 and 30929 09/02/2011 - Left L4-5 and L5-S1 Lumbar Facet Medial Branch Nerve Radiofrequency Ablation under fluoroscopy - CPT 60716 and 99435 08/07/2011 - Right L4-5 and L5-S1 Lumbar Facet Medial Branch Nerve Radiofrequency Ablation under fluoroscopy - CPT 41324 and 49024 05/19/2011 - Bilateral L4-5 and L5-S1 Lumbar Facet Medial Branch Block under fluoroscopy CPT - 32206 and 95087 05/05/2011 - Bilateral L4-5 and L5-S1 Lumbar Facet Medial Branch Block under fluoroscopy CPT - 07313 and 80531 documented in this encounterKettering [facility]08-09-2023 Miscellaneous Notes* Telephone Encounter - Cyndy Whelan RN - 11/12/2022 4:28 PM EDT Pt called and is notified of providers results and instructions. Pt voices understanding. Cyndy Whelan RN * Telephone Encounter - Mani Edwards MD - 11/12/2022 1:28 PM EDT Looks like dose adjusted September and every 2 weeks INRs--recheck in 2 weeks Noted regarding pain med * Telephone Encounter - Tala Torres LPN - 11/11/2022 4:34 PM EDT Patient called back and said to cancel the request for the Percocet rx he will wait until his appt with PCP. * Telephone Encounter - Corrina Velarde LPN - 11/11/2022 3:38 PM EDT Last INR: 2.1 this am at 11 [...] advise. Corrina Velarde LPN documented in this encounterKettering Health [facility]08-09-2023 Miscellaneous Notes* Telephone Encounter - Carlos Rodriguez APRN.CNP - 11/12/2022 11:25 AM EDT Spoke with Mr Brooks over the phone. Clarified reason for procedure ordered and apologized for themiscommunication. He will continue with his appointment with Dr Leal as scheduled. * Telephone Encounter - Carlos Rodriguez APRN.CNP - 11/12/2022 9:47 AM EDT Phone call made without answer. Voicemail left to call office with questions. * Telephone Encounter - Otilia Mac - 11/11/2022 10:12 AM EDT Patient called stating he saw Dr Johns yesterday and surgery was discussed. He wants to let Dr Johns know that he will first try the ablation shots with Dr Leal. If that doesn't work he will have the surgery. Patient will keep us updated. documented in this encounterKettering Health [facility]08-08-2023 Miscellaneous Notes* Telephone Encounter - Sara Baxter APRN.CNP - 11/11/2022 3:38 PM EDT Srinivas Baxter APRN.CNP * Telephone Encounter - Antoinette Meadows RN - 11/11/2022 10:17 AM EDT Patient calls to let provider know that [...] appt. Antoinette Meadows RN documented in this encounterKettering Health [facility]08-07-2023 History of Present illness Narrative* Salas Johns MD - 11/10/2022 2:38 PM EDT Images from the original note [...] associated with bilateral foot drop. Conservative management offeringmoderate relief particularly with the RFA. He denies [...] Pain Level: 7 Pain Location: Back-Middle Description: Sharp;Shooting;Stabbing;Stabbing/Not Incision;Stiffness Duration Amount of Time: 8 Duration [...] (Gastroesophageal Reflux Disease) Recurrent Pulmonary Embolism (Hcc) Health Physicist (Current) Use of Anticoagulants Colonic Polyp History [...] to knees, as of 2008 --- in [place], neurologist thought related to alcohol; Has had EMG/NCS ?Related to sugar? -- see fasting glucose 2008; [...] TIME: 2:38 PM PAGER: documented in this encounterKettering [facility]08-04-2023 Miscellaneous Notes* Telephone Encounter - Graciela Parker RN - 11/07/2022 3:28 PM EDT Patient calling and requesting Dr. Hills to [...] days. Graciela Parker RN documented in this encounterKettering Health [facility]08-03-2023 Miscellaneous Notes* Telephone Encounter - Tala Torres LPN - 11/06/2022 1:45 PM EDT Patient said his last rx was only 150 tablets filled on 08/25/2022. He is calling [facility] to check with them since computer shows 240 tablet with one refill on 08/25/2022. Still wants request sent to PCP. * Telephone Encounter - Kari Briones LPN - 11/04/2022 3:52 PM EDT Patient has been identified by name and [...] you. Kari Briones LPN documented in this encounterKettering Health [facility]08-03-2023 Miscellaneous Notes* Telephone Encounter - Kristina Youssef LPN - 11/06/2022 1:34 PM EDT My chart message to pt. * Telephone Encounter - Franc Hills MD - 11/06/2022 1:13 PM EDT Standing orders x 1 year. * Telephone Encounter - Maribel Oden LPN - 11/04/2022 11:13 AM EDT Pt calling to see if you will put in a new standing order for INR that will take him into 2023. He can see where he has a standing order on 12/26/21 and 02/19/22. Please advise pt. Okay to leave a detailed message. Maribel Oden LPN documented in this encounterKettering Health [facility]07-26-2023 Miscellaneous Notes* Telephone Encounter - Graciela Parker RN - 10/29/2022 2:04 PM EDT Patient notified of provider's orders below with verbalized understanding. Pt repeated instructionsback to nurse. Graciela Parker RN * Telephone Encounter - Franc Hills MD - 10/29/2022 1:10 PM EDT Continue Coumadin dose. INR in 2 weeks. * Telephone Encounter - Tammie Munguia RN - 10/28/2022 11:35 AM EDT Last INR: INR Home CoaguChek 2.4 10/28/2022 Current dose of coumadin is: 10 mg daily except on Thursday 7.5 mg.. Last date of dose change: 09/11/2022.. Previous INR (date and result): 2.2 10/14/2022 No changes in diet or medications. No bleeding or bruising noted. No alcohol for 5 days. documented in this encounterKettering Health [facility]07-13-2023 Miscellaneous Notes* Telephone Encounter - Jennifer Mejia MA - 10/16/2022 6:01 PM EDT Patient active MyChart. Patient notified via [employer] message. Jennifer Mejia MA * Telephone Encounter - Franc Hills MD - 10/14/2022 5:29 PM EDT - No dose change recommended. - Consider non narcotic medications like medications for neuropathic pain like pregabalin (Lyrica),gabapentin (Neurontin) he had taken in the past, or duloxetine (Cymbalta) a centrally acting analgesic. * Telephone Encounter - Maribel Oden LPN - 10/14/2022 9:12 AM EDT Pt called to check status and if he needs to come in he is willing. Please advise pt when this has been sent or if there is a problem. Maribel Oden [facility] * Telephone Encounter - Tala Torres LPN - 10/13/2022 8:39 AM EDT Patient calling requesting refill on Percocet rx, asking if could be increased to the 10/325 mg tablets for his back pain. Patient said the 5/325 mg tablets did not take care of his back pain completely. Patient said he does not have his spine appt until November and this would be the only time he isasking for this. Patient uses [facility] for his pharmacy. Can send patient my chart message with response. Please advise documented in this encounterKettering Health [facility]06-29-2023 History of Present illness Narrative* Anette Omalley PA-C - 10/02/2022 8:22 AM EDT Per Triage: Alex Brooks is a 77 [...] and facet degenerative change. Moderate spinal stenosis. Oksn-sk-omajpadt foraminal narrowing. L4-L5: Loss of disc height, disc bulging, and prominent facet degenerative change. Severe spinal stenosis, worsened when compared with the previous exam. (5:19; 2:11). Yesu-fn-qcefnsaf right and severe left foraminal narrowing. L5-S1: [...] reviewed during the appt Anette Omalley PA-C * Aylin Aguilar - 09/26/2022 10:26 AM EDT Patient name: Alex Brooks Are you being referred by a [facility] Provider or [facility] Management Provider at [facility]? No If answer is YES please schedule directly with surgeon, triage does not need to be completed. Is this a self-referral No If not, who is the Referring Provider Franc Hills MD, [facility] Is this a 2nd opinion? No Were you offered surgery? No MRI/CT/myelogram within 12 months? Yes If NO, please refer to medical spine or PCP to complete above imaging, triage does not need to be completed If YES, please ask for the name/address of the facility where the MRI/CT/myelogram was completed: [facility] MRI/CT/myelogram viewable in [facility]: Yes If not, please provide [phone] to fax in imaging reports for review. Also, please inform patient to hand carry imaging disc to appointment. XR (spine) within 12 months: No If YES, please ask for the name/address of the facility where the XR was completed: Dr. Johnston's patients: Have you had previous EMG/Nerve Conduction Study, Ultrasound, or MRI for thesesame symptoms? If YES, please ask for the [...] where the surgery was completed: Additional Comments [phone] documented in this encounterKettering Health [facility]06-27-2023 Miscellaneous Notes* Telephone Encounter - Kari Briones LPN - 09/30/2022 4:13 PM EDT Patient notified of below Coumadin, Anticoag Tracker updated. Kari Briones LPN * Telephone Encounter - Kari Briones LPN - 09/30/2022 4:[address] Hills: Continue Coumadin same dose. INR in 2 weeks. * Telephone Encounter - Antoinette Meadows RN - 09/30/2022 11:25 AM EDT Patient calls in to answers anticoagulation questions: No recent antibiotics. No unusual bleeding or bruising. No missed doses. No alcohol. Dietary changes: Reduced consumption of green vegetables especially broccoli. Patient also said to let provider know he is still waiting to hear back from [facility] on scheduling with correct Spinal Provider. He said if he doesn't hear from them by tomorrow he is to call them back. Antoinette Meadows RN * Telephone Encounter - Joce Schmid Ma - 09/30/2022 11:09 AM EDT Last INR: INR Home CoaguChek 2.1 09/30/2022 Current dose of coumadin is: 7.5mg Sundays, 10mg all other days. Last date of dose change: 09/11/2022. Previous INR (date and result): 2.4 09/23/2022 documented in this encounterKettering Health [facility]06-22-2023 Miscellaneous Notes* Telephone Encounter - Jennfier Mejia MA - 09/25/2022 7:06 PM EDT Cancelled pain mgmt appt per PCP. Patient notified. Jennifer Mejia MA * Telephone Encounter - Graciela Parker RN - 09/25/2022 4:46 PM EDT Patient states he will plan on going to his appt tomorrow to see Dr. Leal in Pain Mgmt, unless Dr. Hills thinks otherwise. Please advise on message below. Thank you. * Telephone Encounter - Graciela Parker RN - 09/25/2022 3:02 PM EDT Patient asking for clarification: Pt was notified today of consult order placed by Dr. Hills for Consult for Spine Surgery. A senior scheduler has made two appointments for patient and he is asking if these two appointments are appropriate for the consult order: Director Speech And Hearing made appt for pt to see Dr. Mckinley Leal with Pain Mgmt in [place]. This appt is for tomorrowand pt asking if this appt is appropriate for the consult order placed today? Director Speech And Hearing made appt for pt to also see Sunny Orta PA-C of Spine Med in [place] for next month. Pt asking if this appt is appropriate or if needs to see Spine Surgery? Please contact patient with update today, if possible. Thank you. * Telephone Encounter - Kari Briones LPN - 09/25/2022 8:53 AM EDT Patient notified of below recommendations, advise. PSS please contact Patient to schedule. Kari Briones LPN * Telephone Encounter - Franc Hills MD - 09/24/2022 11:31 PM EDT ASSESSMENT/PLAN: 1. Chronic low back pain without sciatica, unspecified back pain laterality - ICD9: 724.2, 338.29, ICD10: M54.50, G89.29 (primary diagnosis) - CONSULT TO SPINE SURGERY 2. Spinal stenosis of lumbar region, unspecified whether neurogenic claudication present - ICD9: 724.02, ICD10: M48.061 -CONSULT TO SPINE SURGERY Kidney cysts are not a concern. Franc Hills MD * Telephone Encounter - Alvin He RN - 09/24/2022 4:54 PM EDT Patient phoned to add to message below- asking if he needs to be concerned about the renal cysts? * Telephone Encounter - Molly Ann RN - 09/24/2022 4:37 PM EDT Patient calling for MRI results. Asking what the next step will be? Molly Ann RN documented in this encounterKettering Health [facility]06-15-2023 Miscellaneous Notes* Telephone Encounter - Franc Hills MD - 09/18/2022 5:15 PM EDT Okay. * Telephone Encounter - Tala Torres LPN - 09/18/2022 8:26 AM EDT Patient calling to ask what his instructions are. Went over notes below from Dr Hills, patient said can not test Thursday, he had bottle wine last night. He was going to test again on Friday 09/22. I phoned [facility] and spoke to Mike and he said the INR resulted 2.0 was lab done per [facility]. He said the 1.0 was not done at [facility] was manually put in not sure if by Gabby Rm LPN. * Telephone Encounter - Franc Hills MD - 09/17/2022 1:59 PM EDT Notify lab of potential quality issue (discrepant results). Continue Coumadin dose INR in 2 days. * Telephone Encounter - Molly Ann RN - 09/17/2022 1:12 PM EDT Patient calling back to say he received INR result from [facility] through My Chart saying his INR=1.0. Molly Ann RN * Telephone Encounter - Gabby Rm LPN - 09/17/2022 12:48 PM EDT Last INR: INR Home CoaguChek 2.0 09/17/2022 [...] and message was left. documented in this encounterKettering Health [facility]06-08-2023 Miscellaneous Notes* Telephone Encounter - Cyndy Whelan RN - 09/11/2022 1:15 PM EDT Pt called and is notified of providers message and instructions. Pt voices understanding. Cyndy Whelan RN * Telephone Encounter - Franc Hills MD - 09/11/2022 1:06 PM EDT Increase Coumadin dose. 7.5 mg on Sundays. 10 mg on all other 6 days of the week. INR in one week. . * Telephone Encounter - Antoinette Meadows RN - 09/11/2022 11:32 AM EDT Patient calls to answer anticoagulation questions. Current [...] advise, Antoinette Meadows RN documented in this encounterK[facility]06-07-2023 Miscellaneous Notes* Telephone Encounter - Kari Briones LPN - 09/10/2022 11:38 AM EDT Patient has been identified by name and [...] you. Kari Briones LPN documented in this encounterKettering [facility]05-31-2023 Miscellaneous Notes* Telephone Encounter - Gabby Rm LPN - 09/03/2022 2:08 PM EDT PATIENT NOTIFIED OF SAME. Tracker updated. * Telephone Encounter - Mani Edwards MD - 09/03/2022 1:24 PM EDT Looks like took extra pill back on July 02 when INR went up 3.9. If not already using weekly pill boxes for coumadin to make sure not taking extra dose or missing dose. Take 5 mg today and tomorrow, then resume 7.5 mg Sat and Sun with 10 mg rest of the week. Recheck INR in 1 week. * Telephone Encounter - Antoinette Meadows RN - 09/03/2022 11:45 AM EDT Patient calls to answer anticoagulation questions. Current [...] advise, Antoinette Meadows RN documented in this encounterKettering [facility]05-08-2023 History of Present illness Narrative* Franc Hills MD - 08/11/2022 3:35 PM EDT This note was created using [employer]el[employer] Mobile Technologyriter. 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 Franc Hills MD documented in this encounterKettering [facility]05-05-2023 History of Present illness Narrative* Mj Dos Santos MD - 08/08/2022 10:45 AM EDT Heart, Vascular & Thoracic [place] Department of Cardiovascular Medicine VIRTUAL VIDEO VISIT ESTABLISHED OUTPATIENT VISIT SERVICE DATE: 08/08/2022 Patient: Alex Brooks SERVICE TIME: 11:10 AM : 1945 This is a virtual video visit. It required patient-provider interaction for the medical decision making as documented below. Alex Brooks has consented to this video encounter. I have communicated my name and active licensure. The patient's identity and physical location wereverified at the time of this visit. Either the patient or their legal business representative has been informed of the risks and benefits of -- and alternatives to -- treatment through a remote evaluation andconsents to proceed with the evaluation remotely. Alex [...] paroxysmal nocturnal dyspnea, pedal edema. Home blood [id number]. Recently cut down his alcohol intake as [...] to knees, as of 2008 --- in [place], neurologist thought related to alcohol; Has had EMG/NCS ?Related to sugar? -- see fasting glucose 2008; [...] Negative for: Weakness, Paralysis, Numbness, Tingling, Tremor, Nervousness,Depressed mood, Memory loss SKIN: Negative for: Rashes, Itching HEMATOLOGICAL/LYMPHATIC: Negative for: Easy bruising , Easy bleeding ENDOCRINE: Negative for: Heat or cold intolerance, Excessive sweating, Frequent urination, Frequentthirst PHYSICAL EXAMINATION: VIDEO EXAM: (if completed, performed [...] year old male with multi-site atherosclerotic disease - carotid, lower extremityarterial and presumed coronary along with recurrent venous thromboembolism here for follow-up. Patient continues to do well. Will not make any medication changes. From a PE perspective, he has an indication for retirement anticoagulation. Regarding his history of PAD, Carotid Disease, presumed coronary disease - his BP is well controlled, LDL < 70. While he is on aspirin, can consider discontinuing it in the future given stable disease and his indication for retirement anticoagulation. Patient will follow up with me [...] Mj Dos Santos MD, MS, FACC, FSVM, SHAY Rodriguez and Zabrina Hylton Department of Cardiovascular Medicine [address], [place] [address] Appointments: (Cardiology); (Vascular Medicine) This note was dictated using a voice recognition software. Please excuse any inadvertent typographical/grammatical/syntax errors that may have escaped the final proofread. Please don't hesitate to contact my office for any clarification. documented in this encounterKettering [facility]05-03-2023 Miscellaneous Notes* Telephone Encounter - Kari Briones LPN - 08/06/2022 1:52 PM EDT Patient notified, verbalized understanding. Kari Briones LPN * Telephone Encounter - Franc Hills MD - 08/06/2022 1:00 PM EDT Continue Coumadin dose. INR in 2 weeks. * Telephone Encounter - Alvin He RN - 08/06/2022 11:45 AM EDT Last INR: INR 2.6 08/06/2022 Current dose of coumadin is: 7.5 mg WF, 10 mg all other days. Last date of dose change: 07-09-22. Previous INR (date and result): 3.7 07-30-22 Additional Clinical Information or narrative: yes: Patient reports he's been on a low carb diet forthe last 2 mths. Reports BP has improved: 103/64 (66), 115/68 (75), 103/68 (68)- states he does notwant pcp to decrease his lisinopril/hctz at this time- can discuss at next appt this month. No alcohol since 07-18-22. No recent AB , No ususual bleeding or bruising. No missed doses. documented in this encounterKettering [facility]04-26-2023 Miscellaneous Notes* Telephone Encounter - Kari Briones LPN - 07/30/2022 1:07 PM EDT TC Patient, given below recommendation, he asked for the dosage instructions be sent to [employer]. Done. Kari Briones LPN * Telephone Encounter - Franc Hills MD - 07/30/2022 12:59 PM EDT Decrease Coumadin dose 7.5 mg on Wednesdays and Fridays. 10 mg on all other 5 days. INR in 1 week. * Telephone Encounter - Maribel Oden LPN - 07/30/2022 11:22 AM EDT Patient s identity has been confirmed by [...] back. Maribel Oden LPN documented in this encounterKettering [facility]04-25-2023 Miscellaneous Notes* Telephone Encounter - Tala Torres LPN - 07/29/2022 3:25 PM EDT Phoned patient and went over notes from Sara Baxter LICENSED MENTAL HEALTH PROFESSIONAL with understanding. Patient plans to do Dr Martinez labs on 08/18, and Dr Dos Santos and Dr Martinez INR labs tomorrow. * Telephone Encounter - Sara Baxter APRN.CNP - 07/29/2022 3:01 PM EDT Okay for all labs tomorrow Sara Baxter APRN.KAYLA * Telephone Encounter - Alvin He RN - 07/29/2022 8:09 AM EDT Patient asking pcp to reply today, b/c he is going in to get labs done tomorrow. * Telephone Encounter - Graciela Parker RN - 07/28/2022 4:58 PM EDT Patient has appt with Dr. Jorgensen on 08/22. He has lab orders ordered to have completed prior to appt. (HGB A1C and BMP) Patient asking if okay to have labs completed on 07/30? He states he has other lab orders ordered byDr. Dos Santos and would like to get them all drawn together on 07/30. Please call patient with reply. Thank you. documented in this encounterKettering [facility]04-12-2023 Miscellaneous Notes* Telephone Encounter - Cyndy Whelan RN - 07/16/2022 3:59 PM EDT Pt called and is notified of providers results and instructions. Pt voices understanding. ScheduledPt for lab appointment. Cyndy Whelan RN * Telephone Encounter - Franc Hills MD - 07/16/2022 1:45 PM EDT Continue Coumadin dose. INR in 2 weeks. * Telephone Encounter - Tala Torres LPN - 07/16/2022 1:05 PM EDT Last INR: INR Home CoaguChek 3.1 07/16/2022 [...] say he is eating a lot of belizean foods and likes lots of hot sauce on his food. documented in this encounterKettering [facility]04-05-2023 Miscellaneous Notes* Telephone Encounter - Kristina Youssef LPN - 07/09/2022 3:32 PM EDT Patient notified of results and provider's instructions. Patient verbalizes understanding. Kristina Youssef LPN * Telephone Encounter - Franc Hills MD - 07/09/2022 2:54 PM EDT Continue Coumadin dose 10 mg daily. INR in 1 week. * Telephone Encounter - Ivy Cox LPN - 07/09/2022 11:42 AM EDT Last INR: INR Home CoaguChek 2.3 07/09/2022 Current dose of coumadin is: 5 mg on Thu, 10 mg all other days. Last date of dose change: 07/02/22. Previous INR (date and result): 3.9 Additional Clinical Information or narrative: no documented in this encounterKettering [facility]03-29-2023 Miscellaneous Notes* Telephone Encounter - Cyndy Whelan RN - 07/02/2022 12:46 PM EDT Pt called and is notified of providers message and instructions. Pt voices understanding. Cyndy Whelan RN * Telephone Encounter - Franc iHlls MD - 07/02/2022 12:41 PM EDT Take Coumadin 5 mg daily for today only. Tomorrow resume 10 mg daily. INR in 1 week. * Telephone Encounter - Cyndy Whelan RN - 07/02/2022 11:42 AM EDT Last INR: INR Home CoaguChek 3.9 07/02/2022 [...] sure. Pt denies diet changes, except he hasbeen eating more belizean, denies alcohol consumption, has not been on any antibiotics, no unusual bleeding or bruising. documented in this encounterKettering [facility]03-15-2023 Miscellaneous Notes* Telephone Encounter - Kari Briones LPN - 06/18/2022 1:50 PM EDT Patient notified of below recommendation, verbalized understanding. Anticoag Tracker updated. Kari Briones LPN * Telephone Encounter - Franc Hills MD - 06/18/2022 12:49 PM EDT Continue Coumadin dose. INR in 2 weeks. * Telephone Encounter - Antoinette Meadows RN - 06/18/2022 12:34 PM EDT Patient calls to answer Anticoagulation Questions. Current INR: 2.1 Current dose of Coumadin: Coumadin 10 mg daily. No unusual bleeding or bruising. No recent antibiotics. No missed doses. No diet changes or alcohol. Please review and advise, Antoinette Meadows RN documented in this encounterKettering [facility]03-14-2023 Miscellaneous Notes* Telephone Encounter - Tammie Munguia RN - 06/17/2022 3:16 PM EDT Last Office Visit: 06/02/2022 Future Office Visit: 08/22/2022 Requested Prescriptions Pending Prescriptions Disp Refills potassium chloride (KLOR-CON 10) 10 mEq tablet 180 tablet 3 Sig: Take 1 tablet by mouth twice daily. Date of Last Labs: 05/26/2022 Component Latest Ref Rng & Units 05/26/2022 Potassium 3.7 - 5.1 mmol/L 4.3 documented in this encounterKettering Health [facility]03-06-2023 Miscellaneous Notes* Telephone Encounter - Cyndy Whelan RN - 06/09/2022 11:30 AM EST Pt called and is notified of providers message and instructions. Pt voices understanding. Cyndy Whelan RN * Telephone Encounter - Franc Hills MD - 06/07/2022 1:09 PM EST He can proceed with holding coumadin as he stated, as he is concerned about bleeding. He's been on CoQ10 for a while so I don't expect any major change in his coumadin dosing. * Telephone Encounter - Tammie Munguia RN - 06/06/2022 10:16 AM EST Patient calls and states that he is having a bridge put on his bottom teeth on 06/12/2022.Dentist had told him that he did not [...] advise, Tammie Munguia RN documented in this encounterKettering [facility]03-01-2023 Miscellaneous Notes* Telephone Encounter - Julieth Jeffry [facility] [place] - 06/04/2022 11:53 AM EST Patient called back regarding his 05/21 phone [...] can be scheduled on the same day. Juliethkae Teran * Telephone Encounter - Judie Acosta - 05/21/2022 1:03 PM EST Mr. Yanet Orta called requesting an order for Echo to be done prior to 1 year follow up with Dr. Dos Santos. Patient would like to get the Echo done in [facility]. Call back number: [phone] Thank you documented in this encounterKettering [facility]02-28-2023 Miscellaneous Notes* Telephone Encounter - Celia Sanders LPN - 06/03/2022 4:42 PM EST Patient notified and verbalized understanding. Celia Sanders LPN * Telephone Encounter - Sherry Rodrigues MD - 06/03/2022 4:35 PM EST 2.8 Is within normal range of 2 to 3. Cont the same dose and recheck in a weeks Regards, Sherry Rodrigues MD * Telephone Encounter - Graciela Parker RN - 06/03/2022 2:09 PM EST Pt calling to answer anticoagulation protocol questions for today's INR result of 2.8: States no recent antibiotic use No unusual bleeding/bruising No diet changes No missed doses of coumadin Pt states he has been taking 10mg Coumadin daily. Please advise. Thank you. documented in this encounterKettering [facility]02-27-2023 History of Present illness Narrative* Franc Hills MD - 06/02/2022 5:02 PM EST Alex Brooks is a 76 year old male here for a Medicare Subsequent Annual Wellness Visit Health Risk Assessment In general, health is: Good Concerns with balance: More than half the days Concerns with teeth or dentures: Not at all Concerns with sexual function: Not at all [place] anxious, stressed, angry, irritable, lonely, isolated, or [...] (Hematology/Oncology) Mj Dos Santos MD Cardiology. Kvng Magaña MD, ophthalmology. Harry Nuñez, optometry. Iglesia Ansari [...] with patient, and I recommended no further interventionat this time. Cognitive screening Mini Cog Score: [...] - Opioid prescription and treatment plan review * Franc Hills MD - 06/02/2022 5:00 PM EST This note was created using [employer]ashMap[employer]. Subjective Patient presents with: Medicare Wellness Exam Recheck Alex Brooks is a 76 year old male. His hypertension was labile. He followed with cardiology at [facility], but was considering transferring to [facility] cardiology here He is on Percocet as needed for chronic back pain. His opioid use was stable, and consistent. Adapted from CDC guidelines: Opioids can provide short term benefits for moderate to severe pain. Scientific evidence is lackingfor benefits to treat chronic pain. Before prescribing [...] OPIOID therapies are appropriate. (NSAIDs, TCAs, SNRI, anti- convulsants, exercise or physical therapy, cognitive behavioral therapy) [...] (Gastroesophageal Reflux Disease) Recurrent Pulmonary Embolism (Hcc) Alf (Current) Use of Anticoagulants Colonic Polyp History [...] A1C Franc Hills MD documented in this encounterKettering [facility]02-27-2023 Miscellaneous Notes* Telephone Encounter - Joce Schmid Ma - 06/02/2022 4:06 PM EST MARITZA: 02/03/2022 Last refill: 03/18/2022 QTY: 42 Refills: 0 documented in this encounterKettering Health [facility]02-27-2023 Miscellaneous Notes* Telephone Encounter - Joce Schmid Ma - 06/02/2022 10:15 AM EST MARITZA: 02/03/2022 Last refill: 02/19/2021 QTY: 90 Refills: 1 Patient's request for medication is as follows: Requested Prescriptions Pending Prescriptions Disp Refills famotidine (PEPCID) 40 mg tablet 90 tablet 1 Sig: Take 1 tablet by mouth once daily as needed. Please approve the above prescription(s) to electronically send to pharmacy. Joce Schmid Ma documented in this encounterKettering Health [facility]02-20-2023 Miscellaneous Notes* Telephone Encounter - Julieth Teran [facility] - 05/26/2022 12:53 PM EST Patient is calling because he would like to request having an ECHO when he goes in on 06/04, if possible, for his labs at [facility] (if same date doesn't work, check with patient for a different date0. He said it's been a year since his last one and he would like to be checked again. I told him we would check with Dr. Dos Santos and Raiza would call him back. Julieth Teran documented in this encounterKettering Health [facility]02-16-2023 Miscellaneous Notes* Telephone Encounter - Maribel Oden LPN - 05/22/2022 2:25 PM EST Spoke with pt and information listed below given. Pt verbalizes understanding. Maribel Oden LPN * Telephone Encounter - Franc Hills MD - 05/22/2022 1:18 PM EST Continue Coumadin dose 10 mg daily. INR in 2 weeks. * Telephone Encounter - Maribel Oden LPN - 05/22/2022 11:10 AM EST Last INR: INR Home CoaguChek 2.4 05/22/2022 [...] to confirm per pt. documented in this encounterKettering Health [facility]02-15-2023 Miscellaneous Notes* Telephone Encounter - Tammie Munguia RN - 05/21/2022 11:59 AM EST Patient calls and states that he was talking to vascular and they had told him that there is not lab orders placed before patient's appointment on 06/02/2022. Advised that there are labs placed and labs are part of lab appointment that patient scheduled on 05/26/2022. Patient voiced understanding. Tammie Munguia RN documented in this encounterKettering Health [facility]02-02-2023 Miscellaneous Notes* Telephone Encounter - Tala Torres LPN - 05/08/2022 10:31 AM EST Patient called back and said he figured it out. He will not need call back about this. He will do as he told Maribel below restarting on 05/09/2022. * Telephone Encounter - Maribel Oden LPN - 05/08/2022 10:07 AM EST Pt called back and wants to double check if he is to start back on the Coumadin today or tomorrow. Please advise pt. Okay to leave a message and pt will not call back he checks his messages often. Maribel Oden LPN * Telephone Encounter - Maribel Oden LPN - 05/08/2022 9:59 AM EST Last INR: INR Home CoaguChek 1.0 05/08/2022 [...] 05-14-22. Maribel Oden LPN documented in this encounterKettering Health [facility]01-19-2023 Miscellaneous Notes* Telephone Encounter - Kari Briones LPN - 04/24/2022 8:59 AM EST Patient notified of below dosage recommendation, read back. Kari Briones LPN * Telephone Encounter - Franc Hills MD - 04/23/2022 5:29 PM EST Resume Coumadin Feb. 3 at 15 mg daily until May. 5. On May. 6 start usual 10 mg daily dose. INR on 8. * Telephone Encounter - Alvin He RN - 04/21/2022 1:38 PM EST Patient reports he is having a dental [...] pcp. How many days after procedure should hetest INR? Please phone patient with reply. documented in this encounterKettering Health [facility]01-19-2023 Miscellaneous Notes* Telephone Encounter - Tala Torres LPN - 04/24/2022 8:50 AM EST Patient calling back he will have INR done on May 07, said it will be low since will be off coumadinfor 5 days for teeth cleaning. Patient will have INR done again on May 14 back on coumadin. * Telephone Encounter - Kari Briones LPN - 04/24/2022 8:33 AM EST Patient notified, verbalized understanding. Anticoag Tracker updated. Kari Briones LPN * Telephone Encounter - Franc Hills MD - 04/23/2022 5:23 PM EST Continue Coumadin dose. INR in 2 weeks. * Telephone Encounter - Alvin He RN - 04/23/2022 12:28 PM EST Last INR: INR 2.8 04/23/2022 Current dose of coumadin is: 10 mg daily. Last date of dose change: 04-11-22. Previous INR (date and result): 04-16-22 2.0 Additional Clinical Information or narrative: yes: No missed doses, no recent AB, no unusual bleeding or bruising, no diet changes, no alcohol in 4-5 days. documented in this encounterKettering Health [facility]01-11-2023 Miscellaneous Notes* Telephone Encounter - Joce Schmid Ma - 04/16/2022 6:10 PM EST Patient notified, tracker updated. * Telephone Encounter - Franc Hills MD - 04/16/2022 5:18 PM EST Continue Coumadin dose. 10 mg daily. INR in 1 week. * Telephone Encounter - Gabby Rm LPN - 04/16/2022 4:13 PM EST Last INR: INR Home CoaguChek 2.0 04/16/2022 Current dose of coumadin is: 10 mg daily. He was asked to hold Coumadin 04/11/22. Last date of dose change: 04/11/22. Previous INR (date and result): 04/11/22 4.1 Additional Clinical Information or narrative: yes: see message below * Telephone Encounter - Maribel Oden LPN - 04/16/2022 10:59 AM EST Pt called to report he just did his INR today and wanted to get information needed for this. *Taking Coumadin 10 mg daily. He was asked to stop Coumadin 1 day last time he had his INR done. *No missed doses *No wine x 4 days *Pt taking Mucinex for phelgm in his throat Maribel Oden LPN documented in this encounterKettering Health [facility]01-11-2023 Miscellaneous Notes* Telephone Encounter - Franc Hills MD - 04/16/2022 7:27 AM EST Patient's request for medication is as follows Requested Prescriptions Signed Prescriptions Disp Refills lisinopril-hydroCHLOROthiazide (PRINZIDE,ZESTORETIC) 20-12.5 mg per tablet 180 tablet 1 Sig: Take 2 tablets by mouth once daily. Franc Hills MD * Telephone Encounter - Graciela Parker RN - 04/14/2022 3:01 PM EST Pt calling to check on status of request to increase his lisinopril to twice a day. Please advise patient. Thank you. documented in this encounterKettering Health [facility]01-06-2023 History of Present illness Narrative* Kristina Youssef LPN - 04/11/2022 2:39 PM EST PCP ADDRESSED IN PHONE ENCOUNTER POT CALLED TOO. Hold coumadin today only. Resume coumadin 10 mg daily after holding for one day. INR in 3 days. * Julieth Castle RN - 04/11/2022 12:15 PM EST patient had inr completed at [facility] patients inr is 4.1 (patients inr range [...] up inr on 04/18/22 documented in this encounterKettering Health [facility]01-06-2023 Miscellaneous Notes* Telephone Encounter - Kristina Youssef LPN - 04/11/2022 2:38 PM EST Patient notified of results and provider's instructions. Patient verbalizes understanding. Kristina Youssef LPN * Telephone Encounter - Franc Hills MD - 04/11/2022 2:25 PM EST Hold coumadin today only. Resume coumadin 10 mg daily after holding for one day. INR in 3 days. * Telephone Encounter - Cyndy Whelan RN - 04/11/2022 11:38 AM EST Pt called in and wanted to let provider know he may have taken a double dose either on Thu or Thu. He states he normally turns the bottle upside down after he has taken it, and one day he wasn't osei if he did or not. He states that is the only thing he could think of that could account for his INR. * Telephone Encounter - Alvin He RN - 04/11/2022 11:20 AM EST Patient wants pcp to know, he had his INR draw today at the coumadin clinic and it was 4.1. States he has no idea why- reports he has not had any alcohol for 5-6 days, no diet changes (ate a large welder 2nd shift salad last night), no recent AB's, no unusual bleeding or bruising. Does take a daily lowdose asa. documented in this encounterKettering Health [facility]01-03-2023 Miscellaneous Notes* Telephone Encounter - Graciela Parker RN - 04/08/2022 9:27 AM EST Patient calling to ensure his MC message to PCP is understood. He states he does not need his potassium script refilled at this time. He is only requesting his potasssium CL ER be changed to KLORCON for future orders due to low cost. Thank you. documented in this encounterKettering Health [facility] Township12-30-2022 Miscellaneous Notes* Telephone Encounter - Alvin He RN - 04/04/2022 4:56 PM EST Notified patient. * Telephone Encounter - Franc Hills MD - 04/04/2022 1:23 PM EST Okay. * Telephone Encounter - Graciela Parker RN - 04/04/2022 10:43 AM EST Patient called back in and requesting pended refill request be sent as soon as possible, today. He states he will be changing insurances 04/06/22 and would like to get this refill sent under current insurance due to cost savings. Thank you. * Telephone Encounter - Tammie Munguia RN - 04/04/2022 9:41 AM EST Last Office Visit: 02/03/2022 Future Office Visit: 06/02/2022 Requested Prescriptions Pending Prescriptions Disp Refills potassium chloride SR (MICRO-K) 10 mEq CR capsule 180 capsule 1 Sig: Take 1 capsule by mouth twice daily. Date of Last Labs: 11/13/2021 documented in this encounterKettering Health [facility]12-28-2022 Miscellaneous Notes* Telephone Encounter - Kari Briones LPN - 04/02/2022 1:38 PM EST Patient notified of dosage decrease, verbalized understanding. Anticoag Tracker updated Scheduled Patient in Coumadin Clinic Kari Anselmo DEL TORO * Telephone Encounter - Franc Hills MD - 04/02/2022 1:15 PM EST Decrease Coumadin dose. 10 mg daily. INR in 1 week. * Telephone Encounter - Tammie Munguia RN - 04/01/2022 12:47 PM EST Last INR: 3.2 04/01/2022 Current dose of coumadin is: 10 mg on ,,,, and . 15 mg on , , and .Patient's coumadin was held 5 days prior to patient's colonoscopy patient had done on 03/24/2022. Previous INR (date and result): 03/24/2022 1.1; Patient's coumadin was being held 5 days prior to procedure Additional Clinical Information or narrative: no Patient states that he has had no changes in diet and medications. Patient states that he did have a glass of wine on Thursday03/29/2022. Patient hasno bleeding or bruising noted. Please review and advise, Tammie Munguia RN documented in this encounterKettering [facility]12-15-2022 Miscellaneous Notes* Telephone Encounter - Tammie Munguia RN - 03/20/2022 2:00 PM EST Patient called and wanted to let provider know that the reason why he had cancelled INR on Thursday was because he is having it done at [facility] instead. Tammie Munguia RN documented in this encounterKettering [facility]12-14-2022 Miscellaneous Notes* Telephone Encounter - Sara Baxter APRN.CNP - 03/19/2022 3:47 PM EST Addressed in phone encounter Sara Baxter APRN.KAYLA documented in this encounterKettering Health [facility]12-13-2022 Miscellaneous Notes* Telephone Encounter - Maribel Oden LPN - 03/18/2022 4:04 PM EST Pt notified prescription was sent to the pharmacy. Maribel Oden LPN * Telephone Encounter - Franc Hills MD - 03/18/2022 2:35 PM EST PDMP website checked and validated. All prescriptions have been APPROPRIATELY filled. No suspiciousactivity was identified. 03/18/2022 by Franc Hills MD See duplicate messages, discussion about options, patient responses. Percocet refilled. Follow up for chronic pain, chronic opioid use . * Telephone Encounter - Tammie Munguia RN - 03/17/2022 4:41 PM EST Patient calls upset that the Percocet has [...] Please review and advise, Tammie Munguia RN * Telephone Encounter - Kari Briones LPN - 03/17/2022 4:00 PM EST Message sent to Patient: Rich this is Dr. Hills's response. Please let our office know. We can try LYRICA instead. Lyrica is a medication used for neuralgia and seizures. It is not an opoid. I can also refer him to pain management. * Telephone Encounter - Franc Hills MD - 03/17/2022 1:35 PM EST We can try LYRICA instead. Lyrica is a medication used for neuralgia and seizures. It is not an opoid. I can also refer him to pain management. * Telephone Encounter - Tammie Munguia RN - 03/17/2022 8:26 AM EST Patient calls and is asking about refill for Percocet. Patient states that he only has 2 left. Patient asking if provider is not planning on refilling Percocet, what does provider suggest taking? Patient states that tylenol does not help with his pain. Patient also states that he is going in for colonoscopy at [facility] with Dr. Rosenberg on Thursday03/24/2022. Patient reports that he is going off of Coumadin on and coming in to recheck INR before procedure on Thursday at 9 am. Please review and advise, Tammie Munguia RN * Telephone Encounter - Tala Torres LPN - 03/14/2022 2:33 PM EST Patient calling asking for Percocet refill, he has 4 pills left. Patient said right now he is having back pain problem. He is trying to take one daily.Patient said if PCP did not want to do the rx, can he suggest something else? Patient said he can not take muscle relaxer or gabapentin rx. Pending rx to file Please advise * Telephone Encounter - Franc Hills MD - 03/13/2022 12:49 PM EST Patient's request for medication is as follows Requested Prescriptions Signed Prescriptions Disp Refills LORazepam (ATIVAN) 2 mg tab 90 tablet 1 Sig: Take 1 tablet by mouth at bedtime as needed (insomnia) for up to 180 days. Do not start beforeMarch 20, 2022. Authorizing Provider: FRANC HILLS Refused Prescriptions Disp Refills oxyCODONE-acetaminophen (PERCOCET) 5-325 mg tablet 42 tablet 0 Sig: Take 1 tablet by mouth every 4 hours as needed for pain for up to 7 days. Refused By: FRANC HILLS Reason for Refusal: A Refill not appropriate In another message, he indicated he still had Percocet 8-10 tablets. . Franc Hills MD * Telephone Encounter - Cyndy Whelan RN - 03/13/2022 10:49 AM EST Pt called in asking about medication. Let Pt know that they were in and someone would call him as soon as they were put through. * Telephone Encounter - Tala Torres LPN - 03/11/2022 4:42 PM EST Patient has been identified by name and [...] Not applicable Please advise. Thank you. Tala Quattrocchi SHRINK PIT OPERATOR Patient requesting PCP to advise. documented in this encounterKettering [facility]12-13-2022 Miscellaneous Notes* Telephone Encounter - Franc Hills MD - 03/18/2022 2:32 PM EST Notes, discussions noted. Lyrica declined. * Telephone Encounter - Brandi Lambert LPN - 03/18/2022 10:23 AM EST Pt calls to report he does not [...] Pt reports about 2.5 yrs ago Sara Baxter, THEATRICAL AGENT reduced percocet dose from 10 mg to [...] has. Brandi Lambert LPN documented in this encounterKettering [facility]12-08-2022 Miscellaneous Notes* Telephone Encounter - Franc Hills MD - 03/13/2022 12:45 PM EST Noted. * Telephone Encounter - Corrina Prachi DEL TORO - 03/13/2022 9:04 AM EST Pt calling regarding the tox screen results. [...] 01/16/22. Corrina Velarde LPN documented in this encounterKettering Health [facility]12-01-2022 History of Present illness Narrative* Franc Hills MD - 03/06/2022 6:30 PM EST Ok. * Julieth Castle RN - 03/06/2022 12:24 PM EST patient had inr completed at [facility] patients inr is 2.8 (patients inr range [...] in 2 weeks (03/20/22 - per pt requ est) for follow up INR. documented in this encounterKettering [facility]11-15-2022 History of Present illness Narrative* Julieth Castle RN - 02/18/2022 4:[address] edwards she agrees with information * Julieth Castle RN - 02/18/2022 1:03 PM EST patient had inr completed at [facility] patients inr is 2.6 (patients inr range [...] scheduled in 2 weeks (per patient request an d he will call to schedule) for follow up INR. documented in this encounterKettering Health [facility]11-15-2022 Miscellaneous Notes* Telephone Encounter - Julieth Castle RN - 02/18/2022 1:06 PM EST Patient is a new [facility] and we are needing new standing orders for testing. Orders have been pended for review and file if able. CC only needs called if orders cannot be filed. Thanks documented in this encounterKettering Health [facility]11-08-2022 Miscellaneous Notes* Telephone Encounter - Kristina Youssef LPN - 02/11/2022 9:02 AM EST Pt called in and spoke to a triage nurse. He is requesting to change back to Dr. Hills as pcp. Reviewed with Dr. Hills. He is fine with this. Pcp field change back to Dr. Hills. documented in this encounterKettering [facility]10-31-2022 Miscellaneous Notes* Telephone Encounter - Maribel Oden LPN - 02/03/2022 3:12 PM EDT Pt called back and he has the instructions and knows what to do. Maribel Oden LPN * Telephone Encounter - Molly Ann RN - 02/03/2022 3:04 PM EDT Patient calling with question about AVS showing No Coumadin 01/12-. After reviewing patient'srecord, it appears Coumadin was held during this time for tooth extraction. Left message for patient to call back. Molly Ann RN documented in this encounterKettering [facility]10-31-2022 History of Present illness Narrative* Bonnie Sharif APRN.SENIOR BUSINESS DEVELOPMENT ANALYST - 02/03/2022 12:53 PM EDT SUBJECTIVE: DEPRESSION ASSESSMENT Never done HPI Alex Brooks is a 76 year old male. 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 Mj Dos Santos MD, cardiology 08/2021 Dr Rosenberg colonoscopy 03/24/2022 [facility]. Presents for transfer to Mani Edwards MD. [...] to knees, as of 2008 --- in [place], neurologist thought related to alcohol; Has had EMG/NCS ?Related to sugar? 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 - TOX SCREEN ROUT UR Bonnie Sharif APRN.SENIOR BUSINESS DEVELOPMENT ANALYST Medical Decision Making: Problems: Moderate: 2+ stable chronic illnesses Risk: Moderate: Drug management Medical Decision Making Level: 4 - Moderate documented in this encounterKettering [facility]10-29-2022 Miscellaneous Notes* Telephone Encounter - Angi Chua LPN - 02/01/2022 11:24 AM EDT Patient notified. * Telephone Encounter - Franc Hills MD - 02/01/2022 10:12 AM EDT Continue Coumadin dose. Sundays 12.5 mg. Mondays thru Saturdays 10 mg. INR in 2 weeks. * Telephone Encounter - Angi Chua LPN - 02/01/2022 9:04 AM EDT Patient calling, for dosage of coumadin. Please advise. Asking for a call and [facility] message. * Telephone Encounter - Gabby Rm LPN - 01/31/2022 1:39 PM EDT Last INR: 2.8 Current dose of coumadin is: 01/26/22 patient took 12.5 mg and then 10 mg all other days. Last date of dose change: 01/24/22. Previous INR (date and result): 01/24/22 2.4 Additional Clinical Information or narrative: no documented in this encounterKettering [facility]10-22-2022 Miscellaneous Notes* Telephone Encounter - Rosalia Guerrero Ma - 01/25/2022 8:40 AM EDT Patient notified via [employer] encounter where he inquired about INR * Telephone Encounter - Franc Hills MD - 01/24/2022 5:50 PM EDT Disregard previous coumadin order. Change Coumadin to 10 mg daily Mondays thru Saturdays; & 12.5 mg on Sundays. INR in 1 week. * Telephone Encounter - Gabby Rm LPN - 01/24/2022 4:44 PM EDT INR today 2.4. Please advise on patient's new instructions. * Telephone Encounter - Rosalia Guerrero Ma - 01/24/2022 1:15 PM EDT Patient INR is still pending, please clarify below * Telephone Encounter - Franc Hills MD - 01/24/2022 12:49 PM EDT Continue Coumadin dose 12.5 mg daily. INR in 3 days. * Telephone Encounter - Graciela Parker RN - 01/24/2022 11:07 AM EDT Patient calling and states he is aware [...] 01/14 Graciela Parker RN documented in this encounterKettering [facility]10-19-2022 Miscellaneous Notes* Telephone Encounter - Franc Hills MD - 01/22/2022 1:04 PM EDT Noted. * Telephone Encounter - Tala Torres LPN - 01/22/2022 10:15 AM EDT Patient calling just to give a message to PCP. Patient said the only antibiotic he seems to be ableto take and not effect his INR is Amoxicillin 875 mg. Patient has been taking a rx since end of December. He had his tooth extraction done. Patient said his next INR is due Wednesday 01/24. He said he did have a few beers last night, hoping that will not effect his INR results. documented in this encounterKettering [facility]10-13-2022 Miscellaneous Notes* Telephone Encounter - Maribel Oden LPN - 01/16/2022 12:12 PM EDT Pt having tooth extraction today. Maribel Oden LPN * Telephone Encounter - Joce Schmid Ma - 01/15/2022 5:02 PM EDT TC to patient - unable to reach. Line rings busy. Will try again later. * Telephone Encounter - Sara Baxter APRN.CNP - 01/15/2022 4:35 PM EDT He should still have tooth extraction. Follow instructions given to him previously concerning when to restart and have INR rechecked Sara Baxter APRN.KAYLA * Telephone Encounter - Tala Torres LPN - 01/15/2022 3:15 PM EDT Patient calling and said his INR today is 1.0 he is concerned since his tooth extraction is scheduled for tomorrow at [address] Justice oral surgeon. Patient stopped coumadin Thursday 01/11. He is asking if he should still have the extraction or go back on his coumadin? Patient can cancel if notified before 6 pm today. Please advise documented in this encounterKettering Health [facility]10-12-2022 Miscellaneous Notes* Telephone Encounter - Tammie Munguia RN - 01/15/2022 9:00 AM EDT Patient calls and is notified of provider response. Patient voiced understanding. Tammie Munguia RN * Telephone Encounter - Franc Hills MD - 01/14/2022 5:18 PM EDT Generally, most surgeons are comfortable doing procedures if INR is < 2.0. The dental form sent does NOT require checking an INR before the procedure, but only instructions on holding coumadin. * Telephone Encounter - Sara Baxter APRN.KAYLA - 01/14/2022 3:20 PM EDT It should be on the dental form that Dr. Hills filled out and faxed last month. I don't have access to that form. I am not able to answer his question, this can wait until Dr. Hills is back in the office tomorrow morning. Sara Baxter APRN.KAYLA * Telephone Encounter - Maribel Oden LPN - 01/14/2022 3:09 PM EDT Pt calling back asking for an answer. Pt aware this has not been addressed yet. Maribel Oden LPN * Telephone Encounter - Maribel Oden LPN - 01/14/2022 8:24 AM EDT Pt asking what his INR needs to be to have the tooth extraction done (range). Pt states he has beeneating a lot of brussels sprouts. He would like to be called on this today so he can let his dentist know tomorrow after he get his INR done. Maribel Oden LPN * Telephone Encounter - Alvin He RN - 01/13/2022 9:04 AM EDT Patient phoned to let pcp know, he scheduled 2 appts with lab, one on Thu and one on , just in case the INR on Thu is too high. This is in preparation for his tooth extraction on . documented in this encounterKettering [facility]10-05-2022 Miscellaneous Notes* Telephone Encounter - Cyndy Whelan RN - 01/08/2022 4:46 PM EDT Pt called and is notified of providers results and instructions. Pt voices understanding, he stateshe doesn't know if it worth trying to do the bridging at this point in time. Cyndy Whelan RN * Telephone Encounter - Franc Hills MD - 01/08/2022 4:10 PM EDT There is no point in adjusting now since he will come off coumadin medication any way. We don't have a crystal ball. The procedure is minor. He has no recent thromboembolic event, so theindication for Lovenox injections off warfarin is less clear. So benefit not clear, risk of bleeding present, bridging anticoagulation with Lovenox is an option.He can let me know his decision. * Telephone Encounter - Cyndy Whelan RN - 01/08/2022 3:54 PM EDT Pt called and is notified of providers results and instructions. Pt states he is going to be off the Coumadin on Thursday and his INR is 1.8, so why is he maintaining. He states, What if my INR goesdown to 1.6. What happens if I get my 4th PE.. Please call and advise. Cyndy Whelan, RN * Telephone Encounter - Franc Hills MD - 01/08/2022 3:45 PM EDT Continue Coumadin dose until he holds coumadin 01/11 for dental extraction. INR testing per previousmessages pertinent to the upcoming dental extractions. * Telephone Encounter - Corrina Velarde LPN - 01/08/2022 3:24 PM EDT Last INR: 1.8 01/08/22 (today) at 11am [...] mail Corrina Velarde LPN documented in this encounterKettering Health [facility]10-04-2022 Miscellaneous Notes* Telephone Encounter - Kari Briones LPN - 01/07/2022 11:10 AM EDT Patient notified of below dosage recommendation, verbalized understanding. Per Patient's request, sent instructions through [employer]. Anticoag Tracker updated. Kari Briones LPN * Telephone Encounter - Franc Hills MD - 01/07/2022 9:16 AM EDT When resuming coumadin Oct 15 or 16 (per oral surgeon directions), have him restart at 12.5 mg daily. INR 01/24. I suggest waiting one month before undertaking another procedure where coumadin will be held. * Telephone Encounter - Cyndy Whelan RN - 01/06/2022 12:18 PM EDT Pt called in and reports he is [...] Please call and advise documented in this encounterKettering Health [facility]09-30-2022 Miscellaneous Notes* Telephone Encounter - Graciela Parker RN - 01/03/2022 3:55 PM EDT Detailed message of provider's message below left on patient's confidential and personalized voicemail, per his request. Graciela Parker RN * Telephone Encounter - Franc Hills MD - 01/03/2022 3:32 PM EDT No urgent concern. Continue to monitor. I * Telephone Encounter - Graciela Parker RN - 01/03/2022 3:09 PM EDT Patient reports he took his BP moments ago and it was 164/84, pulse 59. He is asking Dr. Hills if he should be concerned? Denies any symptoms. Continues lisinopril-hydrochlorothiazide as ordered - reports he takes it everyevening. He states he took an extra half pill' of the medication this morning. States he has not drank any alcohol in 2-3 days and drank coffee earlier today. Also on amoxicillin for a bad tooth. Please advise patient. Thank you. documented in this encounterKettering Health [facility]09-29-2022 Miscellaneous Notes* Telephone Encounter - Cyndy Whelan RN - 01/02/2022 8:43 AM EDT Pt called and is notified of providers message and instructions. Pt voices understanding. Cyndy Whelan RN * Telephone Encounter - Franc Hills MD - 01/01/2022 4:08 PM EDT 1) Dental form completed. 2) I defer to dentist about the need for additional pain medication, especially opioid medication. The Percocet he has from me is for chronic back pain. 3) It is reasonable to reschedule the colonoscopy to avoid prolonged period of low anticoagulation. * Telephone Encounter - Antoinette Meadows RN - 01/01/2022 10:53 AM EDT Patient calls to check on status of request. Notified patient request is pending provider review. Patient verbalizes understanding. Patient also asking provider opinion on dental surgery following a colonoscopy. Patient asking if that would be too close together for holding Coumadin twice and should he rescheduled the colonoscopyfor a later time? Antoinette Meadows RN * Telephone Encounter - Graciela Parker RN - 12/31/2021 3:26 PM EDT Patient calling and reports he is waiting to schedule either a root canal or tooth extraction for zack tooth he has. He is waiting for [...] his bad tooth. Uses [facility] in [place]. Please advise patient. Thank you. documented in this encounterKettering Health [facility]09-28-2022 Miscellaneous Notes* Telephone Encounter - Sara Baxter APRN.CNP - 01/01/2022 11:07 AM EDT Duplicate, addressed in another phone encounter Sara Baxter APRN.CNP * Telephone Encounter - Kari Briones LPN - 12/31/2021 2:02 PM EDT Form received. Given to covering provider to review. Kari Briones LPN * Telephone Encounter - Tammie Munguia RN - 12/31/2021 12:22 PM EDT Patient calls and states that he just saw Dr. Justice from [facility]. Patient reports that Dr. Justice's office just faxed over forms requesting provider's instructions on how long patient needs to be off of coumadin before patient has tooth extraction done. Tooth extraction will not be scheduled until instructions are received. Please review and advise, Tammie Munguia RN documented in this encounterKettering Health [facility]09-22-2022 Miscellaneous Notes* Telephone Encounter - Ramila Zapata LPN - 12/26/2021 9:34 AM EDT Patient notified of results, verbalizes understanding of instructions. Pt needs standing order for INR for another year. Ramila Zapata LPN * Telephone Encounter - Sara Baxter APRN.CNP - 12/25/2021 7:04 PM EDT Dose: No Change. Repeat in INR in 2 weeks Sara Baxter APRN.KAYLA * Telephone Encounter - Kristina Youssef LPN - 12/25/2021 3:52 PM EDT Last INR: INR Home CoaguChek 2.2 12/25/2021 Current dose of coumadin is: .10 mg everyday except 12.5 mg on Thursday. Last date of dose change: 12/12/21. Previous INR (date and result): 12/11/21 was 3.9 Additional Clinical Information or narrative: INR goal is 2-3 * Telephone Encounter - Cyndy Whelan RN - 12/25/2021 9:53 AM EDT Pt asking if provider would be able to extend his standing INR order for another year. He reports he only has two more visits left after today. Last INR: Pt will be getting today Current dose of coumadin is: Had decreased to 5 mg one day only, then back to 10 mg everyday [id number] mg on Thursday. Last date of dose change: 12/11/21. Previous INR (date and result): 3.9 Additional Clinical Information or narrative: yes: Denies any missed doses, no unusual bleeding andbruising, no recent antibiotic use, no diet changes and has not drank any alcohol 4-5 days [facility]. documented in this encounterKettering [facility]09-15-2022 History of Present illness Narrative* Iglesia Ansari MD - 12/19/2021 4:48 PM EDT Carotid duplex unchanged from prior. Repeat in 2 years. Iglesia Ansari MD documented in this encounterKettering Health [facility]09-14-2022 Miscellaneous Notes* Telephone Encounter - Rosalia Coffman Sec - 12/18/2021 9:12 AM EDT Mr. Brooks had follow-up imagine done of his carotids (US) done yesterday and he states he received the results in [facility] and the results appear to be the same as they were in 2020. Mr. Brooks would like to know if he would still need to keep the virtual visit on 12/[address] Ansari? Rosalia Coffman Burr Mill Operator documented in this encounterKettering Health Washington Township09-14-2022 Miscellaneous Notes* Telephone Encounter - Mani Edwards MD - 12/18/2021 12:12 AM EDT Noted uses med prn per PCP's November progress note. PDMP reviewed. The following approved medication requests have been transmitted electronically. Requested Prescriptions Signed Prescriptions Disp Refills oxyCODONE-acetaminophen (PERCOCET) 5-325 mg tablet 42 tablet 0 Sig: Take 1 tablet by mouth every 4 hours as needed for pain for up to 7 days. Authorizing Provider: MANI EDWARDS MD * Telephone Encounter - Kari Briones LPN - 12/17/2021 3:24 PM EDT Patient has been identified by name and [...] you. Kari Briones LPN documented in this encounterKettering Health [facility]09-13-2022 Miscellaneous Notes* Telephone Encounter - Parvin Ramirez MD - 12/17/2021 6:34 PM EDT Returned call to patient, he had all his questions answered already by Shruti and Dr. Magaña and is satisfied, no further questions * Telephone Encounter - Julia Lisha Sec - 12/13/2021 9:20 AM EDT Patient calling back and wants to know what is exactly wrong with his right eye. He is referring to the office note below the section I put in paranthesis that he would like clarified. He is also requesting a sooner appt. however nothing has changed since the appt. below. # [phone] Patient is not available today from 2-4pm Assessment & Plan Kvng Maagña MD filed at 12/10/2021 11:50 AM Status: Signed This is a 76 year old male diagnosed upon referral with mac hole left eye s/p PPV ~9 years ago. Visual acuity with correction is 20/25 RE and 20/30 LE. IOP is 13 /13. Anterior segment exam is significant for centered PCL. Dilated fundus examination demonstrates closed hole. OCT with reconstution ofEZ with abnormal foveal contour LE. (Right eye demonstrates resolution of subfoveal RPE disruption and SRF, trace ERM. Recommend observation and f/u in 6 months or sooner PRN, dispsense Mrx today. )Strict return precautions with AG. * Telephone Encounter - Shelby Keating - 12/12/2021 10:49 AM EDT Patient called and would like clarification as to what is going on medically with his right eye. Heis concerned about losing vision. He is requesting a phone call from Dr. Magaña or Shruti. Patient wants you to know that he did order his glasses from [employer]. Alex Brooks [phone] FV-06/24/21 LV-12/10/21 Assessment & Plan Kvng Magaña MD filed at 12/10/2021 11:50 AM Status: Signed This is a 76 year old male diagnosed upon referral with mac hole left eye s/p PPV ~9 years ago. Visual acuity with correction is 20/25 RE and 20/30 LE. IOP is 13 /13. Anterior segment exam is significant for centered PCL. Dilated fundus examination demonstrates closed hole. OCT with reconstution ofEZ with abnormal foveal contour LE. Right eye demonstrates resolution of subfoveal RPE disruption and SRF, trace ERM. Recommend observation and f/u in 6 months or sooner PRN, dispsense Mrx today. Strict return precautions with AG. documented in this encounterK[facility]09-13-2022 Miscellaneous Notes* Telephone Encounter - Kari Briones LPN - 12/17/2021 3:26 PM EDT Called Pharmacy, Patient has refill of Potassium, it is to early to fill. Patient can fill 01/02/2022. Kari Briones LPN documented in this encounterK[facility]09-08-2022 Miscellaneous Notes* Telephone Encounter - Kristina Youssef LPN - 12/12/2021 10:43 AM EDT Patient notified of results and provider's instructions. Patient verbalizes understanding. Kristina Youssef LPN * Telephone Encounter - Franc Hills MD - 12/12/2021 9:02 AM EDT Decrease coumadin to 5 mg today only. Then resume usual dose. INR in one week. * Telephone Encounter - Graciela Parker RN - 12/11/2021 4:17 PM EDT Patient returned call and verified coumadin dosing: [...] sterling synephrine -mydriacyl Please advise. Thank you. * Telephone Encounter - Kristina Youssef LPN - 12/11/2021 4:09 PM EDT Last INR: INR Home CoaguChek 3.9 12/11/2021 Current dose of coumadin is: . Last date of dose change: . 11/01/21 Previous INR (date and result): 11/27/21 Additional Clinical Information or narrative: INR goal is 2-3. Message left for pt to return call to a nurse to verify coumadin dose and pt findings. documented in this encounterK[facility]09-07-2022 Miscellaneous Notes* Telephone Encounter - Joce Schmid Ma - 12/11/2021 4:57 PM EDT Vitamins added - need PCP to remove ascorbic acid - elderberry * Telephone Encounter - Graciela Parker RN - 12/11/2021 4:30 PM EDT Pt calling and requests the following medications to be changed on his list: (This nurse unable to change medication list, if office nurse could please) Remove ascorbic acid-elderberry=not taking Add Vit C 2000 mg tabs daily Add Vit D 3000 units daily Magnesium oxide 400 mg-Reports taking 2 capsules daily, not one. Thank you. documented in this encounterK[facility]09-06-2022 History of Present illness Narrative* Kvng Magaña MD - 12/10/2021 11:17 AM EDT This is a 76 year old male diagnosed upon referral with mac hole left eye s/p PPV ~9 years ago. Visual acuity with correction is 20/25 RE and 20/30 LE. IOP is 13 /13. Anterior segment exam is significant for centered PCL. Dilated fundus examination demonstrates closed hole. OCT with reconstution ofEZ with abnormal foveal contour LE. Right eye [...] examined Alex Brooks. I have discussed the caseand the management of this patient's care with the Resident/Fellow, if applicable. I also have reviewed and agree with the assessment and plan as stated above and agree with all of its relevant components. documented in this encounterK[facility]08-25-2022 Miscellaneous Notes* Telephone Encounter - Kristina Youssef LPN - 11/28/2021 2:57 PM EDT Patient notified of results and provider's instructions. Patient verbalizes understanding. Kristina Youssef LPN * Telephone Encounter - Franc Hills MD - 11/28/2021 2:50 PM EDT Continue Coumadin dose. INR in 2 weeks. * Telephone Encounter - Kristina Youssef LPN - 11/28/2021 9:33 AM EDT Last INR: INR Home CoaguChek 3.0 11/27/2021 Current dose of coumadin is: 10 mg daily except 12.5 mg on Sundays. Last date of dose change: 11/01/21. Previous INR (date and result): 11/14/21 was 2.6 Additional Clinical Information or narrative: INR goal is 2-3. * Telephone Encounter - Antoinette Meadows RN - 11/27/2021 12:12 PM EDT Patient calling ahead of time to verify his coumadin dosing: He takes 12.5 mg on sundays and 10 mg all other days. Reports no diet changes, no recent antibiotics, no unusual bleeding/bruising. No missed doses. Once INR results are back he requests a deatiled message be left on his VM if he does not answer-heprefers not to have to call office back to get message. Antoinette Meadows RN documented in this encounterK[facility]08-24-2022 Miscellaneous Notes* Telephone Encounter - Kari Briones LPN - 11/27/2021 9:30 AM EDT Patient has been identified by name and [...] you. Kari Briones LPN documented in this encounterK[facility]08-22-2022 Miscellaneous Notes* Telephone Encounter - Kari Briones LPN - 11/25/2021 3:10 PM EDT Patient has been identified by name and [...] you. Kari Briones LPN documented in this encounterK[facility]08-11-2022 Miscellaneous Notes* Telephone Encounter - Kristina Youssef LPN - 11/14/2021 3:11 PM EDT Patient notified of results and provider's instructions. Patient verbalizes understanding. Kristina Youssef LPN * Telephone Encounter - Franc Hills MD - 11/14/2021 3:07 PM EDT Continue Coumadin dose. INR in 2 weeks. * Telephone Encounter - Kristina Youssef LPN - 11/14/2021 2:42 PM EDT Last INR: 2.6 11/14/2021 Current dose of coumadin is: 10 mg daily except 12.5 mg on Sundays. Last date of dose change: 11/01/21. Previous INR (date and result): 11/01/21 was 2.1 Additional Clinical Information or narrative: INR goal is 2-3. * Telephone Encounter - Graciela Parker RN - 11/14/2021 2:13 PM EDT Patient calling to state he has noted [...] get message. Thank you. documented in this encounterK[facility]08-10-2022 History of Present illness Narrative* Franc Hills MD - 11/13/2021 2:53 PM EDT This note was created using Vitel[employer] Mobile Technologyriter. 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 Franc Hills MD documented in this encounterK[facility]08-09-2022 Instructions* Patient Instructions* Micah Rosenberg MD - 11/12/2021 1:40 PM EDT Images from the original note were not included. Bowel Preparation Instructions for: Golytely, Nulytely, Trilyte or Colyte (polyethylene glycol 3350and electrolytes) IF YOU DO NOT FOLLOW THESE [...] If you do not have a responsible starting gate driver (family member or friend) with you to take you home, your exam cannot be done with sedation and will be cancelled. Please bring a list of all of your current medications, including any Over-the Counter medications with you. Medications If you take insulin, diabetic medications or blood thinners such as Coumadin (warfarin), Plavix (clopidogrel), Ticlid (ticlopidine hydrochloride), Agrylin (anagrelide), Xarelto (Rivaroxaban), Pradaxa(Dabigatran), Eliquis (Apixaban), and Effient (Prasugrel). You MUST [...] at your local pharmacy or drugstore pharmacy. 1 03/2019 Bowel Preparation Instructions for: Golytely, Nulytely, Trilyte or Colyte (polyethylene glycol 3350and electrolytes) Three (3) Days Before Your Colonoscopy [...] If you do not have a responsible starting gate driver (family member or friend) withyou to take you home, your exam cannot be done with sedation and will be cancelled. Please bring a list of all of your current medications, including any Dxlo-mul-Wtnqchj medications with you. Medications If you take insulin, diabetic medications or blood thinners such as Coumadin (warfarin), Plavix (clopidogrel), Ticlid (ticlopidine hydrochloride), Agrylin (anagrelide), Xarelto (Rivaroxaban), Pradaxa(Dabigatran), Eliquis (Apixaban), and Effient (Prasugrel). You MUST [...] every 15 minutes for a total of 2glasses. You may continue to drink clear liquids up to (three) 3 hours before your exam. 2 03/2019 documented in this encounterK[facility]08-09-2022 History of Present illness Narrative* Micah Rosenberg MD - 11/12/2021 1:36 PM EDT HISTORY AND PHYSICAL Alex Borjas Aminacielo 1945 REFERRING PHYSICIAN: Micah Rosenberg MD CHIEF [...] to knees, as of 2008 --- in [place], neurologist thought related to alcohol; Has had EMG/NCS ?Related to sugar? -- see fasting glucose 2008; [...] and reviewed by ks Nursing Notes: Katia Colonz 11/12/2021 1:18 PM Signed REVIEW OF SYSTEMS: [...] patient's last Mammogram screening? N/A Last Colonoscopy: 2018 Katia Clayton PHYSICAL EXAMINATION: General: The patient [...] are equally round, sclera are anicteric, mucous membranesare moist, oropharynx is clear. Neck has no [...] endoscopy I plan for monitored anesthetic care.at [facility] Diagnoses: (Z86.010) Personal history of colonic polyps (primary encounter diagnosis) My findings have been communicated to Dr. Franc Hills MD via shared medical record. This note will be forwarded to Dr. Franc Hills MD. Return to Clinic: The patient is instructed to follow-up with me 1 week post operatively. Micah Rosenberg III, MD documented in this encounterK[facility]08-09-2022 Nurse Note* Katia Colonz - 11/12/2021 1:11 PM EDT REVIEW OF SYSTEMS: General: The patient denies [...] patient's last Mammogram screening? N/A Last Colonoscopy: 2018 Katia Clayton documented in this encounterK[facility]07-30-2022 Miscellaneous Notes* Telephone Encounter - Celia Sanders LPN - 11/02/2021 9:29 AM EDT Patient notified of instructions and verbalized understanding. Celia Sanders LPN * Telephone Encounter - Franc Hills MD - 11/02/2021 9:12 AM EDT Increase Coumadin dose. 12.5 mg on Sundays. 10 mg Mondays thru Saturdays. INR in 2 weeks. * Telephone Encounter - Kristina Youssef LPN - 11/01/2021 3:14 PM EDT Last INR: INR Home CoaguChek 2.1 11/01/2021 Current dose of coumadin is: 10 mg daily. Last date of dose change: 09/04/21. Previous INR (date and result): 10/16/21 was 2.4 Additional Clinical Information or narrative: * Telephone Encounter - Gabby Rm LPN - 11/01/2021 2:56 PM EDT Patient called in with question regarding to his Coumadin. He states that reading is 2.0. Is currently on taking 10 mg of warfarin daily. He is questioning if dose should be bumped up a little bit as he was told his reading should be 2.5. Please advise. documented in this encounterK[facility]07-22-2022 Miscellaneous Notes* Telephone Encounter - Rosalia Hernandez - 10/25/2021 3:31 PM EDT Mr. Ordonez has a follow-up appointment scheduled with Dr. Ansari in December. 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 He would like to know if he can have the ultrasound done at [facility] and follow- up virtually? Rosalia Coffman Burr Mill Operator documented in this encounterKettering [facility]07-13-2022 Miscellaneous Notes* Telephone Encounter - Franc Hills MD - 10/16/2021 4:51 PM EDT Continue Coumadin dose. He is taking 10 mg daily. INR in 2 weeks. Patient notified during ER follow up. * Telephone Encounter - Kristina Youssef LPN - 10/16/2021 2:35 PM EDT Last INR: 2.4 10/16/2021 Current dose of coumadin is: . Last date of dose change: 09/04/21. Previous INR (date and result): 10/03/21 was 2.0 Additional Clinical Information or narrative: INR goal is 2-3. Pt has appt today with pcp. Please review. documented in this encounterK[facility]07-13-2022 History of Present illness Narrative* Franc Hills MD - 10/16/2021 4:07 PM EDT This note was created using [employer]. 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 Franc Hills MD documented in this encounterK[facility]07-11-2022 Miscellaneous Notes* Telephone Encounter - Molly Ann RN - 10/14/2021 12:28 PM EDT Patient calling to say he has had some neck and shoulder pain after his fall. Advised ER follow up appointment. Scheduled 10/16 with PCP. Molly Ann RN documented in this encounterK[facility]06-30-2022 Miscellaneous Notes* Telephone Encounter - Kristina Youssef LPN - 10/03/2021 4:13 PM EDT Patient notified of results and provider's instructions. Patient verbalizes understanding. Kristina Youssef LPN * Telephone Encounter - Franc Hills MD - 10/03/2021 4:03 PM EDT Continue Coumadin dose. INR in 2 weeks. * Telephone Encounter - Cyndy Whelan RN - 10/03/2021 12:32 PM EDT Pt called in before INR finished processing. Pt wanted ER visit to be obtained from [facility] for provider to look at. Sent providers nurse a message and she is working on it. Last INR:INR Home CoaguChek 10/03/2021 Current dose of coumadin is: 10 mg Mon-Sat, and 7.5 mg on Thursday. Last date of dose change: 09/04/21. Previous INR (date and result): 3.0 Additional Clinical Information or narrative: yes: Pt denies diet change states he drinks 1 bottle of wine over 5-6 days hasn't had any 3-4 days before this INR test. Pt denies missing any doses and being on antibiotics. Pt report he was in [facility] ER 09/28 and had bruises on his ribs that they x-rayed,from a fall. documented in this encounterK[facility]06-29-2022 Miscellaneous Notes* Telephone Encounter - Maribel Oden LPN - 10/02/2021 8:24 AM EDT Patient has been identified by name and [...] you. Maribel Oden LPN documented in this encounterKettering [facility]06-20-2022 Miscellaneous Notes* Telephone Encounter - Kristina Youssef LPN - 09/23/2021 3:32 PM EDT Images from the original note were not included. Prior authorization approved Payer: [employer] [phone] CaseId:[id number];Status:Approved;Review Type:Prior Auth;Coverage Start Date:09/09/2021;Coverage End Date:09/23/2022; Approval Details Authorized from September 09, 2021 to September 23, 2022 * Telephone Encounter - Kristina Youssef LPN - 09/23/2021 9:48 AM EDT Electronic PA completed for lorazepam. documented in this encounterKettering [facility]06-20-2022 Instructions* Patient Instructions* Teri Gruber APRN.CNP - 09/23/2021 9:40 AM EDT Call your insurance and inquire if you will need a referral for a chemical plant manager. Would recommend seeing dentist as well. documented in this encounterKettering [facility]06-20-2022 History of Present illness Narrative* Teri Gruber APRN.CNP - 09/23/2021 9:28 AM EDT Chief Complaint Patient presents with: Mouth/Lip Problem: [...] has reduced pain from 8-9/10 to now 1- 2/10, but does return. Top upper left gum [...] to knees, as of 2008 --- in [place], neurologist thought related to alcohol; Has had EMG/NCS ?Related to sugar? -- see fasting glucose 2008; [...] ICD10: K06.8 (primary diagnosis) Recommend dentist and chemical plant manager. Severe disease and dental caries. 2. Periodontal disease - ICD9: 523.9, ICD10: K05.6 Recommend dentist and chemical plant manager. Severe disease and dental caries. 3. Chronic low back pain without sciatica, unspecified back pain laterality - ICD9: 724.2, 338.29, ICD10: M54.50, G89.29 Recommend dentist and chemical plant manager. Severe disease and dental caries. Refill given. - OXYCODONE-ACETAMINOPHEN 5 MG-325 MG TABLET Teri Gruber APRN.THEATRICAL AGENT PDMP website checked and validated. All prescriptions have been APPROPRIATELY filled. No suspiciousactivity was identified. 09/23/2021 by Teri Gruber CNP. documented in this encounterKettering [facility]06-17-2022 Miscellaneous Notes* Telephone Encounter - Tala Torres LPN - 09/20/2021 8:17 AM EDT Patient has been identified by name and [...] rx runs out tomorrow. documented in this encounterKettering [facility]06-15-2022 Miscellaneous Notes* Telephone Encounter - Joce Schmid Ma - 09/18/2021 6:00 PM EDT Patient notified, tracker updated. * Telephone Encounter - Sara Baxter APRN.CNP - 09/18/2021 5:33 PM EDT Dose: No Change. Repeat in INR in 2 weeks Sara Baxter APRN.CNP * Telephone Encounter - Kristina Youssef LPN - 09/18/2021 3:25 PM EDT Last INR: INR Home CoaguChek 3.0 09/18/2021 Current dose of coumadin is: 10 mg Mondays thru Saturdays. 7.5 mg on Sundays . Last date of dose change: 09/04/21. Previous INR (date and result): 09/04/21 was 2.2 Additional Clinical Information or narrative: INR goal is 2-3. Pt's reports pt findings are negative. documented in this encounterK[facility]06-01-2022 Miscellaneous Notes* Telephone Encounter - Joce Schmid Ma - 09/04/2021 5:52 PM EDT Patient notified and tracker updated. * Telephone Encounter - Franc Hills MD - 09/04/2021 5:24 PM EDT Increase Coumadin dose 10 mg Mondays thru Saturdays. 7.5 mg on Sundays. INR in 2 weeks. * Telephone Encounter - Antoinette Meadows RN - 09/04/2021 2:31 PM EDT Last INR: 2.2 09/04/2021 Current dose of coumadin is: Coumadin 10 mg Thursday through Thursday 7.5 mg on Thursday and Thursday Last date of dose change: 08/22/2021 Previous INR (date and result): 08/22/2021 2.3 Additional Clinical Information or narrative: yes: No unusual bleeding or bruising, no recent antibiotics, no missed doses, and no change in diet. documented in this encounterK[facility]06-01-2022 Miscellaneous Notes* Telephone Encounter - Kari Briones LPN - 09/04/2021 1:27 PM EDT Patient notified of below response, verbalized understanding. Kari Briones LPN * Telephone Encounter - Franc Hills MD - 09/04/2021 1:21 PM EDT Okay to vary BP medication from 1/2 tablet to one tablet depending on home BP measurement. * Telephone Encounter - Corrina Velarde LPN - 09/04/2021 9:30 AM EDT Pt calling to report he checks his [...] med. Pt takes Lisinopril hctz 20 - 12.5mg& is asking if on the mornings that his BP is low, can he take 1/2 of the lisinopril/hctz tab & when his BP is normal he will take a full tab? Please advise pt if this is acceptable. Corrina Velarde LPN documented in this encounterKettering [facility]05-20-2022 Miscellaneous Notes* Telephone Encounter - Franc Hills MD - 08/23/2021 1:09 PM EDT Okay. * Telephone Encounter - Antoinette Meadows RN - 08/23/2021 10:36 AM EDT Patient calls to update provider on BP [...] system. Antoinette Meadows RN documented in this encounterKettering Health [facility]05-19-2022 Miscellaneous Notes* Telephone Encounter - Molly Ann RN - 08/22/2021 7:48 PM EDT Patient received information at clinic appointment today. Molly Ann RN * Telephone Encounter - Franc Hills MD - 08/22/2021 6:36 PM EDT COUMADIN 10 MG MONDAYS THRU FRIDAYS. 7.5 MG SATURDAYS AND SUNDAYS. INR IN 2 WEEKS. See clinic encounter. * Telephone Encounter - Kristina Youssef LPN - 08/22/2021 2:28 PM EDT Last INR: INR Home CoaguChek 2.3 08/22/2021 [...] had taken 7.5 mg documented in this encounterKettering Health [facility]05-19-2022 Instructions* Patient Instructions* Franc Hills MD - 08/22/2021 6:34 PM EDT COUMADIN 10 MG MONDAYS THRU FRIDAYS. 7.5 MG SATURDAYS AND SUNDAYS. INR IN 2 WEEKS. documented in this encounterKettering [facility]05-19-2022 History of Present illness Narrative* Franc Hills MD - 08/22/2021 5:36 PM EDT This note was created using [employer]. Subjective Alex Brooks is a 75 year old male. He saw the LICENSED MENTAL HEALTH PROFESSIONAL 1.5 weeks ago, and was treated for [...] lower this afternoon. 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 * Telephone Encounter - Corrina Velarde LPN - 08/20/2021 10:07 AM EDT Pt calling to report he tested NEG on a government issued home covid this this am. Pt is asymptomatic but tested himself because he is around many nurses. Corrina Velarde LPN documented in this encounterKettering [facility]05-13-2022 Instructions* Patient Instructions* Mj Dos Santos MD - 08/16/2021 1:48 PM EDT 1) Continue current medications 2) Encourage physical activity - 30mins x 5 times a week 3) Can inquire about Xarelto 10mg daily from [facility]. Maybe able to switch to that in the future documented in this encounterKettering Health [facility]05-13-2022 History of Present illness Narrative* Mj Dos Santos MD - 08/16/2021 1:30 PM EDT Images from the original note were not included. [facility] [place] [facility] Department of Cardiovascular Medicine SECTION OF CLINICAL CARDIOLOGY OUTPATIENT VISIT DATE August 15, 2021 OUTPATIENT VISIT TYPE ESTABLISHED PRIMARY CARE PHYSICIAN: Franc Hills [address] [place] [address] REFERRING PHYSICIAN: Mj Dos Santos [address] [facility] [id number] CHIEF COMPLAINT: Multisite atherosclerotic disease HISTORY OF [...] to knees, as of 2008 --- in [place], neurologist thought related to alcohol; Has had EMG/NCS ?Related to sugar? -- see fasting glucose 2008; [...] Negative for: Weakness, Paralysis, Numbness, Tingling, Tremor, Nervousness,Depressed mood, Memory loss SKIN: Negative for: Rashes, Itching HEMATOLOGICAL/LYMPHATIC: Negative for: Easy bruising , Easy bleeding ENDOCRINE: Negative for: Heat or cold intolerance, Excessive sweating, Frequent urination, Frequentthirst PHYSICAL EXAMINATION: BP 141/73 (BP Site: Left Arm) Pulse 63 Ht 185.4 cm (6' 1) Wt 81.2 kg (179 lb) SpO2 97% BMI 23.62 kg/m General: Well appearing, in no acute distress. Skin: No clubbing, no cyanosis. Neck: No jugular venous distention, no carotid bruits, carotids have a normal upstroke, no palpablethyromegaly. 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 Please excuse any inadvertent typographical/grammatical/syntax errors that may have escaped the final proofread. Please don't hesitate to contact my office for any clarification. documented in this encounterKettering Health [facility]05-12-2022 Miscellaneous Notes* Telephone Encounter - Kristina Youssef LPN - 08/15/2021 12:15 PM EDT Pt notified. * Telephone Encounter - Franc Hills MD - 08/14/2021 6:09 PM EDT I don't think he can benefit from this. * Telephone Encounter - Tala Torres LPN - 08/14/2021 3:41 PM EDT Patient calling with question, [facility] This last email has him wondering if this may help him? It was email concerning [facility]. Patient isasking if it would help his balance issues with his neuropathy? Patient said can send him a my chart message back, it would be easier. He thinks the email comes from main campus. Please advise documented in this encounterKettering [facility]05-09-2022 Miscellaneous Notes* Telephone Encounter - Franc Hills MD - 08/12/2021 12:21 PM EDT Patient's request for medication is as follows Signed Prescriptions Disp Refills oxyCODONE-acetaminophen (PERCOCET) 5-325 mg tablet 42 tablet 0 Sig: Take 1 tablet by mouth every 4 hours as needed for pain for up to 7 days. PER Class: C-II TIM: No Authorizing Provider: FRANC HILLS MD * Telephone Encounter - Haydee Gracia LPN - 08/08/2021 3:56 PM EDT Patient has been identified by name and [...] you. Haydee Gracia LPN documented in this encounterKettering [facility]05-04-2022 Miscellaneous Notes* Telephone Encounter - Cyndy Whelan RN - 08/07/2021 4:10 PM EDT Pt called and is notified of providers message and instructions. Pt voices understanding. Cyndy Whelan RN * Telephone Encounter - Sara Baxter APRN.CNP - 08/07/2021 3:40 PM EDT Recommend staying with current dose since he took 7.5 mg instead of 10 mg on . Recheck in two weeks Sara Baxter APRN.CNP * Telephone Encounter - Cyndy Whelan RN - 08/07/2021 3:08 PM EDT Last INR: INR Home CoaguChek 2.1(EXT) 08/07/2021 Current dose of coumadin is:10 mg on Thursday, Thursday, Thursday, , Thursday starting tomorrow and continue 7.5 mg on on Thursday and Saturdays . Last date of dose change: 07/24/21. Previous INR (date and result): 1.9 Additional Clinical Information or narrative: yes: Patient states that due to his diagnoses his INRis supposed to be 2.5, and he has [...] of the 10 mg. [facility] Miscellaneous Notes* Telephone Encounter - Alvin He RN - 07/24/2021 2:50 PM EDT Phoned patient and given instructions below with verbalized understanding. * Telephone Encounter - Sara Baxter APRN.CNP - 07/24/2021 2:37 PM EDT Increase Coumadin to 10 mg on Thursday, Thursday, Thursday, , Thursday starting tomorrow and continue 7.5 mg on on Thursday and Saturdays. INR in two weeks Sara Baxter APRN.CNP * Telephone Encounter - Kristina Youssef LPN - 07/24/2021 2:21 PM EDT Last INR: INR Home CoaguChek 1.9 07/24/2021 [...] He is ^ veggies. documented [facility]22 Miscellaneous Notes* Telephone Encounter - Joce Schmid Ma - 07/12/2021 10:50 AM EDT Patient notified, verbalized understanding. Joce Schmid Ma * Telephone Encounter - Sara Baxter APRN.CNP - 07/12/2021 7:53 AM EDT Sometimes after infection clears there can still be fluid behind the ear drum that takes longer to resolve. The fact that the pain has resolved is a good sign. I would give it another 1-2 weeks and then follow-up if it hasn't improved. Sooner if symptoms reoccur Sara Baxter APRN.KAYLA * Telephone Encounter - Corrina Velarde LPN - 07/11/2021 10:16 AM EDT Pt seen 07/03/21 for an ear problem. [...] tomorrow. Pt would like to wait until LICENSED MENTAL HEALTH PROFESSIONAL returns to ofc tomorrow to get her recommendation since shesaw pt for problem. Please advise. Corrina Velarde LPN documented in this [facility]2022 Miscellaneous Notes* Telephone Encounter - Kari Briones LPN - 07/10/2021 4:49 PM EDT Patient notified, read back. Anticoag Tracker updated. Kari Briones LPN * Telephone Encounter - Franc Hills MD - 07/10/2021 4:34 PM EDT Increase Coumadin dose. 10 mg Thursday, Thu, Thu, Thursday; and 7.5 mg on Thu, Thu and Saturdays. INR in 2 weeks. * Telephone Encounter - Molly Ann RN - 07/10/2021 2:45 PM EDT Last INR: 07/10/21 1.7 Current dose of coumadin is: 10 mg Thu, Thu, Thursday. 7.5 mg on all other 4 days of the week Last date of dose change: 06/27/21 Previous INR (date and result): 06/27/21 1.7 Additional Clinical Information or narrative: no Please review and advise. Molly Ann RN documented in this encounterK[facility]30-[facility]22 History of Present illness Narrative* Sara Older, AIR CONDITIONING SUPERVISOR.THEATRICAL AGENT - 07/03/2021 12:47 PM EDT CC: Patient presents with: right ear issues: [...] to knees, as of 2008 --- in [place], neurologist thought related to alcohol; Has had EMG/NCS ?Related to sugar? -- see fasting glucose 2008; [...] with topical antibiotics, see orders. Follow-up in 1-2weeks if no improvement or sooner if worsening Prescription instructions reviewed with patient as applicable. Potential red flag symptoms discussed with the patient. Reviewed appropriate action plan to take if red flag symptoms occur. Patient agreeable to treatment plan. Sara Baxter APRN.CNP documented in this encounterK[facility]03-24-2022 Miscellaneous Notes* Telephone Encounter - Kari Briones LPN - 06/27/2021 4:35 PM EDT Patient notified of dosage change, he read back. Anticoag Tracker updated. Kari Briones LPN * Telephone Encounter - Franc Hills MD - 06/27/2021 3:22 PM EDT Increase Coumadin dose. 10 mg Thu, Thu, Thursday. 7.5 mg on all other 4 days of the week. INR in 2 weeks. * Telephone Encounter - Kristina Youssef LPN - 06/27/2021 2:34 PM EDT Last INR: INR Home CoaguChek 1.7 06/27/2021 Current dose of coumadin is: 10 mg on Thursday and Thursday and 7.5 mg all other days. Last date of dose change: 05/22/21 . Previous INR (date and result): 06/19/21 was 2.0 Additional Clinical Information or narrative: INR goal is 2-3. documented in this encounterK[facility] History of Past illness Narrative* Problem Noted [...] of this encounter (statuses as of 11/14/2021) [facility] Past [facility] Narrative* Problem Noted [...] of this encounter (statuses as of 11/14/2021) [facility] Narrative* Problem Noted [...] of this encounter (statuses as of 11/25/2021) [facility] Narrative* Problem Noted [...] of this encounter (statuses as of 11/27/2021) [facility] Narrative* Problem Noted [...] of this encounter (statuses as of 11/28/2021) [facility] Narrative* Problem Noted [...] of this encounter (statuses as of 12/10/2021) [facility] Narrative* Problem Noted [...] of this encounter (statuses as of 12/11/2021) [facility] Narrative* Problem Noted [...] of this encounter (statuses as of 12/12/2021) [facility] Narrative* Problem Noted [...] of this encounter (statuses as of 12/17/2021) [facility] Narrative* Problem Noted [...] of this encounter (statuses as of 12/17/2021) [facility] Narrative* Problem Noted [...] of this encounter (statuses as of 12/18/2021) [facility] Narrative* Problem Noted [...] of this encounter (statuses as of 12/18/2021) [facility] Narrative* Problem Noted [...] reflux 11/10/2008 10/11/2014 Impaired fasting glucose 10/11/2008 01/08/2 013 Overview: Under 110; See labs 10/12 Nonspecific abnormal results of liver function s [place] 10/05/2008 04/28/2011 Overview: ? Due to high-moderate alcohol intake documented as of this encounter (statuses as of 12/19/2021) [facility] Narrative* Problem Noted [...] of this encounter (statuses as of 12/26/2021) [facility] Narrative* Problem Noted [...] of this encounter (statuses as of 01/01/2022) [facility] Narrative* Problem Noted [...] of this encounter (statuses as of 01/02/2022) [facility] Narrative* Problem Noted [...] of this encounter (statuses as of 01/03/2022) [facility] Narrative* Problem Noted [...] of this encounter (statuses as of 01/07/2022) [facility] Narrative* Problem Noted [...] of this encounter (statuses as of 01/08/2022) [facility] N[facility]ative* Problem Noted [...] of this encounter (statuses as of 01/15/2022) [facility] Narrative* Problem Noted [...] of this encounter (statuses as of 01/16/2022) [facility] N[facility]ative* Problem Noted [...] of this encounter (statuses as of 01/22/2022) [facility] Narrative* Problem Noted [...] of this encounter (statuses as of 01/25/2022) [facility] Narrative* Problem Noted [...] of this encounter (statuses as of 02/01/2022) [facility] N[facility]ative* Problem Noted [...] of this encounter (statuses as of 02/01/2022) [facility] N[facility]ative* Problem Noted [...] of this encounter (statuses as of 02/03/2022) [facility] N[facility]ative* Problem Noted [...] of this encounter (statuses as of 02/03/2022) [facility] N[facility]ative* Problem Noted [...] of this encounter (statuses as of 02/12/2022) [facility] N[facility]ative* Problem Noted [...] of this encounter (statuses as of 02/18/2022) [facility] Narrative* Problem Noted [...] of this encounter (statuses as of 02/19/2022) [facility] N[facility]ative* Problem Noted [...] of this encounter (statuses as of 03/06/2022) [facility] Narrative* Problem Noted [...] of this encounter (statuses as of 03/13/2022) [facility] N[facility]ative* Problem Noted [...] of this encounter (statuses as of 03/18/2022) [facility] N[facility]ative* Problem Noted [...] of this encounter (statuses as of 03/18/2022) [facility] N[facility]* Problem Noted [...] of this encounter (statuses as of 03/19/2022) [facility] N[facility]* Problem Noted [...] of this encounter (statuses as of 03/26/2022) [facility] N[facility]* Problem Noted [...] of this encounter (statuses as of 04/08/2022) [facility] N[facility]* Problem Noted [...] of this encounter (statuses as of 04/09/2022) [facility] N[facility]* Problem Noted [...] of this encounter (statuses as of 04/10/2022) [facility] N[facility]* Problem Noted [...] of this encounter (statuses as of 04/12/2022) [facility] N[facility]* Problem Noted [...] of this encounter (statuses as of 04/16/2022) [facility] N[facility]* Problem Noted [...] of this encounter (statuses as of 04/17/2022) [facility] N[facility]* Problem Noted [...] of this encounter (statuses as of 04/24/2022) [facility] N[facility]* Problem Noted [...] of this encounter (statuses as of 04/24/2022) [facility]* Problem Noted [...] of this encounter (statuses as of 05/10/2022) [facility] N[facility]* Problem Noted [...] of this encounter (statuses as of 05/18/2022) [facility] N[facility]* Problem Noted [...] of this encounter (statuses as of 05/21/2022) [facility] N[facility]* Problem Noted [...] of this encounter (statuses as of 05/22/2022) [facility] N[facility]* Problem Noted [...] of this encounter (statuses as of 05/26/2022) [facility] N[facility]* Problem Noted [...] of this encounter (statuses as of 06/03/2022) [facility] N[facility]* Problem Noted [...] of this encounter (statuses as of 06/03/2022) [facility]* Problem Noted [...] of this encounter (statuses as of 06/04/2022) [facility] N[facility]* Problem Noted [...] of this encounter (statuses as of 06/04/2022) [facility] N[facility]* Problem Noted [...] of this encounter (statuses as of 06/05/2022) [facility] N[facility]* Problem Noted [...] of this encounter (statuses as of 06/09/2022) [facility] N[facility]* Problem Noted [...] of this encounter (statuses as of 06/17/2022) [facility] N[facility]* Problem Noted [...] of this encounter (statuses as of 06/18/2022) [facility] N[facility]* Problem Noted [...] of this encounter (statuses as of 07/02/2022) [facility] N[facility]* Problem Noted [...] of this encounter (statuses as of 07/10/2022) [facility] N[facility]* Problem Noted [...] of this encounter (statuses as of 07/17/2022) [facility] N[facility]ative* Problem Noted [...] of this encounter (statuses as of 07/30/2022) [facility] Narrative* Problem Noted [...] of this encounter (statuses as of 07/30/2022) [facility] N[facility]* Problem Noted [...] of this encounter (statuses as of 08/06/2022) [facility] N[facility]* Problem Noted [...] of this encounter (statuses as of 08/08/2022) [facility] N[facility]* Problem Noted Date Resolved Date Closed nondisplaced fracture of distal phalanx of right great toe 01/16/2021 11/13/2021 Macular hole of left eye 06/19/2020 023 Carotid artery stenosis 06/10/2019 06/11/19 Overview: History: history of left carotid stenosis, [...] of this encounter (statuses as of 08/12/2022) [facility] Narrative* Problem Noted [...] of this encounter (statuses as of 09/11/2022) [facility] Narrative* Problem Noted [...] of this encounter (statuses as of 09/03/2022) [facility] Narrative* Problem Noted [...] of this encounter (statuses as of 09/10/2022) [facility] Narrative* Problem Noted [...] of this encounter (statuses as of 09/19/2022) [facility] Narrative* Problem Noted [...] of this encounter (statuses as of 09/23/2022) [facility] Narrative* Problem Noted [...] of this encounter (statuses as of 09/26/2022) [facility] N[facility]* Problem Noted [...] of this encounter (statuses as of 10/01/2022) [facility] Narrative* Problem Noted [...] of this encounter (statuses as of 10/02/2022) [facility] Narrative* Problem Noted [...] of this encounter (statuses as of 10/14/2022) [facility] N[facility]* Problem Noted [...] of this encounter (statuses as of 10/17/2022) [facility] Narrative* Problem Noted [...] of this encounter (statuses as of 10/29/2022) [facility] N[facility]ative* Problem Noted [...] of this encounter (statuses as of 11/06/2022) [facility] Narrative* Problem Noted [...] of this encounter (statuses as of 11/07/2022) [facility] Narrative* Problem Noted [...] of this encounter (statuses as of 11/10/2022) [facility] N[facility]ative* Problem Noted [...] of this encounter (statuses as of 11/11/2022) [facility] Narrative* Problem Noted [...] of this encounter (statuses as of 11/11/2022) [facility] N[facility]ative* Problem Noted [...] of this encounter (statuses as of 11/12/2022) [facility] Narrative* Problem Noted [...] of this encounter (statuses as of 11/13/2022) [facility] Narrative* Problem Noted [...] of this encounter (statuses as of 11/19/2022) [facility] Narrative* Problem Noted [...] of this encounter (statuses as of 11/19/2022) [facility] N[facility]ative* Problem Noted [...] of this encounter (statuses as of 11/25/2022) [facility] Narrative* Problem Noted [...] of this encounter (statuses as of 12/02/2022) [facility] Narrative* Problem Noted [...] of this encounter (statuses as of 12/03/2022) [facility] Narrative* Problem Noted [...] of this encounter (statuses as of 12/04/2022) [facility] Narrative* Problem Noted [...] of this encounter (statuses as of 12/06/2022) [facility] Narrative* Problem Noted [...] of this encounter (statuses as of 12/09/2022) [facility] Narrative* Problem Noted [...] of this encounter (statuses as of 12/10/2022) [facility] Narrative* Problem Noted [...] of this encounter (statuses as of 12/10/2022) [facility] Narrative* Problem Noted [...] of this encounter (statuses as of 12/17/2022) [facility] Narrative* Problem Noted [...] of this encounter (statuses as of 12/17/2022) [facility] Narrative* Problem Noted [...] of this encounter (statuses as of 12/17/2022) [facility] Narrative* Problem Noted [...] of this encounter (statuses as of 12/25/2022) [facility] Narrative* Problem Noted [...] of this encounter (statuses as of 12/30/2022) [facility] Narrative* Problem Noted [...] of this encounter (statuses as of 12/30/2022) [facility] Narrative* Problem Noted [...] of this encounter (statuses as of 01/09/2023) [facility] N[facility]ative* Problem Noted [...] of this encounter (statuses as of 01/10/2023) [facility] Narrative* Problem Noted [...] of this encounter (statuses as of 01/12/2023) [facility] Narrative* Problem Noted [...] of this encounter (statuses as of 01/14/2023) [facility] N[facility]ative* Problem Noted [...] of this encounter (statuses as of 01/15/2023) [facility] Narrative* Problem Noted [...] of this encounter (statuses as of 01/20/2023) [facility] Narrative* Problem Noted [...] of this encounter (statuses as of 01/22/2023) [facility] Narrative* Problem Noted [...] of this encounter (statuses as of 01/22/2023) [facility] Narrative* Problem Noted [...] of this encounter (statuses as of 01/23/2023) [facility] Narrative* Problem Noted [...] of this encounter (statuses as of 01/30/2023) [facility] Narrative* Problem Noted [...] of this encounter (statuses as of 01/30/2023) [facility] Narrative* Problem Noted [...] of this encounter (statuses as of 02/04/2023) [facility] Narrative* Problem Noted [...] of this encounter (statuses as of 02/10/2023) [facility] Narrative* Problem Noted [...] of this encounter (statuses as of 02/10/2023) [facility] Narrative* Problem Noted [...] of this encounter (statuses as of 02/11/2023) [facility] Narrative* Problem Noted [...] of this encounter (statuses as of 02/18/2023) [facility] Narrative* Problem Noted [...] of this encounter (statuses as of 02/24/2023) [facility] Narrative* Problem Noted [...] of this encounter (statuses as of 02/27/2023) [facility] Narrative* Problem Noted [...] of this encounter (statuses as of 03/02/2023) [facility] Narrative* Problem Noted [...] of this encounter (statuses as of 03/05/2023) [facility] Narrative* Problem Noted [...] of this encounter (statuses as of 03/10/2023) [facility] N[facility]ative* Problem Noted [...] of this encounter (statuses as of 03/19/2023) [facility] Narrative* Problem Noted [...] of this encounter (statuses as of 03/21/2023) [facility] Narrative* Problem Noted [...] of this encounter (statuses as of 03/25/2023) [facility] Narrative* Problem Noted [...] of this encounter (statuses as of 05/08/2023) [facility] N[facility]ative* Problem Noted [...] of this encounter (statuses as of 05/08/2023) [facility] N[facility]ative* Problem Noted [...] of this encounter (statuses as of 05/13/2023) [facility] Narrative* Problem Noted [...] of this encounter (statuses as of 05/14/2023) [facility] N[facility]* Problem Noted [...] of this encounter (statuses as of 05/15/2023) [facility]* Problem Noted [...] of this encounter (statuses as of 05/18/2023) [facility]10-13-2021 History of Past illness Narrative* Problem Noted [...] of this encounter (statuses as of 05/19/2023) [facility] History of Past illness Narrative* Problem Noted [...] of this encounter (statuses as of 05/22/2023) [facility] History of Past illness Narrative* Problem Noted [...] of this encounter (statuses as of 05/23/2023) [facility] History of Past illness Narrative* Problem Noted [...] of this encounter (statuses as of 05/25/2023) [facility] History of Past illness Narrative* Problem Noted [...] of this encounter (statuses as of 05/26/2023) [facility] History of Past illness Narrative* Problem Noted [...] of this encounter (statuses as of 05/26/2023) [facility] History of Past illness Narrative* Problem Noted [...] of this encounter (statuses as of 05/29/2023) [facility] History of Past illness Narrative* Problem Noted [...] of this encounter (statuses as of 05/30/2023) [facility] History of Past illness Narrative* Problem Noted [...] of this encounter (statuses as of 06/02/2023) [facility] History of Past illness Narrative* Problem Noted [...] of this encounter (statuses as of 06/02/2023) [facility] History of Past illness Narrative* Problem Noted [...] of this encounter (statuses as of 06/04/2023) [facility] History of Past illness Narrative* Problem Noted [...] of this encounter (statuses as of 06/04/2023) [facility] History of Past illness Narrative* Problem Noted [...] of this encounter (statuses as of 06/05/2023) [facility] History of Past illness Narrative* Problem Noted [...] of this encounter (statuses as of 06/08/2023) [facility] History of Past illness Narrative* Problem Noted [...] of this encounter (statuses as of 06/10/2023) [facility] History of Past illness Narrative* Problem Noted [...] of this encounter (statuses as of 06/11/2023) [facility] History of Past illness Narrative* Problem Noted [...] of this encounter (statuses as of 06/12/2023) [facility] History of Past illness Narrative* Problem Noted [...] of this encounter (statuses as of 06/12/2023) [facility] History of Past illness Narrative* Problem Noted [...] of this encounter (statuses as of 06/15/2023) [facility] History of Past illness Narrative* Problem Noted [...] of this encounter (statuses as of 06/15/2023) [facility] History of Past illness Narrative* Problem Noted [...] of this encounter (statuses as of 06/16/2023) [facility] History of Past illness Narrative* Problem Noted [...] of this encounter (statuses as of 06/19/2023) [facility] History of Past illness Narrative* Problem Noted [...] of this encounter (statuses as of 06/19/2023) [facility] History of Past illness Narrative* Problem Noted [...] of this encounter (statuses as of 06/23/2023) [facility] History of Past illness Narrative* Problem Noted [...] of this encounter (statuses as of 06/26/2023) [facility] History of Past illness Narrative* Problem Noted [...] of this encounter (statuses as of 06/29/2023) [facility] History of Past illness Narrative* Problem Noted [...] of this encounter (statuses as of 06/30/2023) [facility] History of Past illness Narrative* Problem Noted [...] of this encounter (statuses as of 07/07/2023) [facility] History of Past illness Narrative* Problem Noted [...] of this encounter (statuses as of 07/16/2023) [facility] History of Past illness Narrative* Problem Noted [...] of this encounter (statuses as of 07/16/2023) [facility] History of Past illness Narrative* Problem Noted [...] of this encounter (statuses as of 07/16/2023) [facility] History of Past illness Narrative* Problem Noted [...] of this encounter (statuses as of 07/17/2023) [facility] History of Past illness Narrative* Problem Noted [...] of this encounter (statuses as of 07/17/2023) [facility] History of Past illness Narrative* Problem Noted [...] of this encounter (statuses as of 07/20/2023) [facility] History of Past illness Narrative* Problem Noted [...] of this encounter (statuses as of 07/21/2023) [facility] History of Past illness Narrative* Problem Noted [...] of this encounter (statuses as of 07/21/2023) [facility] History of Past illness Narrative* Problem Noted [...] of this encounter (statuses as of 07/22/2023) [facility] History of Past illness Narrative* Problem Noted [...] of this encounter (statuses as of 07/24/2023) [facility]10[facility]2020 History of Present illness Narrative* Jennifer Gomes [...] 13, 2020 10:12 AM [facility] Narrative* Problem Noted [...] of this encounter (statuses as of 06/27/2021) [facility] History of Past illness Narrative* Problem Noted [...] of this encounter (statuses as of 07/03/2021) [facility] History of Past illness Narrative* Problem Noted [...] of this encounter (statuses as of 07/10/2021) [facility] History of Past illness Narrative* Problem Noted [...] of this encounter (statuses as of 07/12/2021) [facility] History of Past illness Narrative* Problem Noted [...] of this encounter (statuses as of 07/24/2021) [facility] History of Past illness Narrative* Problem Noted [...] of this encounter (statuses as of 08/07/2021) [facility] History of Past illness Narrative* Problem Noted [...] of this encounter (statuses as of 08/08/2021) [facility] History of Past illness Narrative* Problem Noted [...] of this encounter (statuses as of 08/12/2021) [facility] History of Past illness Narrative* Problem Noted [...] of this encounter (statuses as of 08/15/2021) [facility] History of Past illness Narrative* Problem Noted [...] of this encounter (statuses as of 08/16/2021) [facility] History of Past illness Narrative* Problem Noted [...] of this encounter (statuses as of 08/20/2021) [facility] History of Past illness Narrative* Problem Noted [...] of this encounter (statuses as of 08/22/2021) [facility] History of Past illness Narrative* Problem Noted [...] of this encounter (statuses as of 08/23/2021) [facility] History of Past illness Narrative* Problem Noted [...] of this encounter (statuses as of 08/23/2021) [facility] History of Past illness Narrative* Problem Noted [...] of this encounter (statuses as of 09/04/2021) [facility] History of Past illness Narrative* Problem Noted [...] of this encounter (statuses as of 09/04/2021) [facility] History of Past illness Narrative* Problem Noted [...] of this encounter (statuses as of 09/18/2021) [facility] History of Past illness Narrative* Problem Noted [...] of this encounter (statuses as of 09/20/2021) [facility] History of Past illness Narrative* Problem Noted [...] of this encounter (statuses as of 09/23/2021) [facility] History of Past illness Narrative* Problem Noted [...] of this encounter (statuses as of 09/23/2021) [facility] History of Past illness Narrative* Problem Noted [...] of this encounter (statuses as of 10/02/2021) [facility] History of Past illness Narrative* Problem Noted [...] of this encounter (statuses as of 10/03/2021) [facility] History of Past illness Narrative* Problem Noted [...] of this encounter (statuses as of 10/14/2021) [facility] History of Past illness Narrative* Problem Noted [...] of this encounter (statuses as of 10/16/2021) [facility] History of Past illness Narrative* Problem Noted [...] of this encounter (statuses as of 10/16/2021) [facility]2020 History of Past illness Narrative* Problem Noted [...] of this encounter (statuses as of 10/25/2021) [facility] History of Past illness Narrative* Problem Noted [...] of this encounter (statuses as of 11/02/2021) [facility] History of Past illness Narrative* Problem Noted [...] of this encounter (statuses as of 11/12/2021) [facility] 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 Long-term (current) use of anticoagulants 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) Other pulmonary embolism and infarction Encounter for screening for COVID-19 [facility] Diagnosis Suppurative otitis media of right ear, unspecified chronicity- Primary [facility] 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 Long-term (current) use of anticoagulants 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) Other pulmonary embolism and infarction [facility] Diagnosis FDC (current) use of anticoagulants- Primary Long-term (current) use of anticoagulants 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) Other [facility]ism [facility] Mixed [facility] Diagnosis Chronic low back pain without sciatica, unspecified back pain laterality [facility] Diagnosis 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)- Primary Other pulmonary embolism and infarction History of left-sided carotid endarterectomy Mixed hyperlipidemia Primary hypertension Unspecified essential hypertension PAD (peripheral artery disease) (HCC) Peripheral vascular disease, unspecified [facility] Diagnosis Eustachian tube dysfunction, right- Primary Primary hypertension Unspecified essential hypertension 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) Other pulmonary embolism and infarction [facility] Diagnosis FDC (current) use of anticoagulants- Primary Long-term (current) use of anticoagulants 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) Other pulmonary embolism and infarction [facility] Diagnosis Insomnia, unspecified type [facility] Diagnosis Pain in gums- Primary Unspecified gingival and periodontal disease Periodontal disease Unspecified gingival and periodontal disease Chronic low back pain without sciatica, unspecified back pain laterality [facility] noteNo assessment information availableWParkwood Hospital Work Phone: Evaluation note* Diagnosis Essential hypertension Unspecified essential hypertension [facility]* 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 Long-term (current) use of anticoagulants 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) Other pulmonary embolism and infarction [facility]* Diagnosis Fall, subsequent encounter- Primary Chronic low back pain without sciatica, unspecified back pain laterality Closed head injury, subsequent encounter Neck pain on right side Cervicalgia 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) Other pulmonary embolism and infarction [facility]* 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 Long-term (current) use of anticoagulants 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) Other pulmonary embolism and infarction [facility] Diagnosis Personal history of colonic polyps- Primary [facility]* Diagnosis Primary hypertension- Primary Unspecified essential hypertension FDC (current) use of anticoagulants Long-term (current) use of anticoagulants Mixed hyperlipidemia Screening for prostate cancer Special screening for malignant neoplasm of prostate Chronic low back pain without sciatica, unspecified back pain laterality [facility]* Diagnosis 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) Other pulmonary embolism and infarction [facility]* Diagnosis Mixed hyperlipidemia [facility]* Diagnosis Macular hole of left eye- Primary Macular cyst, hole, or pseudohole of retina [facility] Diagnosis Chronic low back pain without sciatica, unspecified back pain laterality [facility] Diagnosis Stenosis of left carotid artery- Primary Occlusion and stenosis of carotid artery without mention of cerebral infarction [facility]* 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 Long-term (current) use of anticoagulants 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) Other pulmonary embolism and infarction [facility]* Diagnosis Primary hypertension- Primary Unspecified essential hypertension 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 Long-term (current) use of anticoagulants 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) Other pulmonary embolism and infarction Chronic low back pain without sciatica, unspecified back pain laterality [facility]* Diagnosis FDC (current) use of anticoagulants- Primary Long-term (current) use of anticoagulants 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) Other pulmonary embolism and infarction [facility]* Diagnosis 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)- Primary Other pulmonary embolism and infarction [facility]* Diagnosis Pain, dental Unspecified disorder of the teeth and supporting structures Insomnia, unspecified type [facility] Diagnosis Onset Date Resolution Status Hx of adenomatous colonic polyps acute [facility] Work Phone: Evaluation note* Diagnosis Essential hypertension Unspecified essential hypertension [facility]* Diagnosis Primary hypertension Unspecified essential hypertension [facility]* Diagnosis 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)- Primary Other pulmonary embolism and infarction Mixed hyperlipidemia Primary hypertension Unspecified essential hypertension [facility]* Diagnosis Pain, dental Unspecified disorder of the teeth and supporting structures [facility]* Diagnosis Medicare annual wellness visit, subsequent- Primary Routine general medical examination at a health care facility PAD (peripheral artery disease) (HCC) Peripheral vascular disease, unspecified Chronic low back pain without sciatica, unspecified back pain laterality Primary hypertension Unspecified essential hypertension Mixed hyperlipidemia 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) Other pulmonary embolism and infarction Impaired fasting glucose [facility]* Diagnosis 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)- Primary Other pulmonary embolism and infarction History of left-sided carotid endarterectomy Mixed hyperlipidemia Primary hypertension Unspecified essential hypertension PAD (peripheral artery disease) (HCC) Peripheral vascular disease, unspecified Anticoagulation management encounter Encounter for therapeutic drug monitoring [facility]* Diagnosis Chronic low back pain without sciatica, unspecified back pain laterality- Primary Primary hypertension Unspecified essential hypertension Impaired fasting glucose [facility]* 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 Long-term (current) use of anticoagulants Recurrent pulmonary embolism (HCC) Other pulmonary embolism and infarction [facility]* Diagnosis Insomnia, unspecified type [facility]* Diagnosis Chronic low back pain without sciatica, unspecified back pain laterality- Primary Spinal stenosis of lumbar region, unspecified whether neurogenic claudication present [facility]* Diagnosis FDC (current) use of anticoagulants- Primary Long-term (current) use of anticoagulants Recurrent pulmonary embolism (HCC) Other pulmonary embolism and infarction [facility] Diagnosis Spinal stenosis, lumbar region with neurogenic claudication- Primary [facility]* Diagnosis Chronic low back pain without sciatica, unspecified back pain laterality [facility]* 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 Long-term (current) use of anticoagulants Recurrent pulmonary embolism (HCC) Other pulmonary embolism and infarction [facility]* Diagnosis Recurrent pulmonary embolism (HCC)- Primary Other pulmonary embolism and infarction FDC (current) use of anticoagulants Long-term (current) use of anticoagulants [facility] Diagnosis Recurrent pulmonary embolism (HCC) Other pulmonary embolism and infarction [facility]* Diagnosis Recurrent pulmonary embolism (HCC) Other pulmonary embolism and infarction [facility]* Diagnosis Chronic low back pain without sciatica, unspecified back pain laterality Spinal stenosis of lumbar region, unspecified whether neurogenic claudication present documented in this encounter [facility]* Diagnosis Radiculopathy, lumbar region- Primary Thoracic or lumbosacral neuritis or radiculitis, unspecified [facility]* Diagnosis Chronic low back pain without sciatica, unspecified back pain laterality documented in this encounter [facility] note* Diagnosis Radiculopathy, lumbar region- Primary Thoracic or lumbosacral neuritis or radiculitis, unspecified Radiculopathy, lumbar region Thoracic or lumbosacral neuritis or radiculitis, unspecified documented in this encounter [facility] note* Diagnosis Chronic low back pain without sciatica, unspecified back pain laterality- Primary Primary hypertension Unspecified essential hypertension Kidney insufficiency Unspecified disorder of kidney and ureter Impaired fasting glucose Radiculopathy, lumbar region Thoracic or lumbosacral neuritis or radiculitis, unspecified documented in this encounter [facility] note* 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 Long-term (current) use of anticoagulants Recurrent pulmonary embolism (HCC) Other pulmonary embolism and infarction Radiculopathy, lumbar region Thoracic or lumbosacral neuritis or radiculitis, unspecified [facility]* Diagnosis Macular hole of left eye- Primary Macular cyst, hole, or pseudohole of retina Posterior vitreous detachment of right eye Vitreous degeneration Radiculopathy, lumbar region Thoracic or lumbosacral neuritis or radiculitis, unspecified [facility]* Diagnosis Insomnia, unspecified type Radiculopathy, lumbar region Thoracic or lumbosacral neuritis or radiculitis, unspecified [facility]* Diagnosis Lumbar spondylosis- Primary Lumbosacral spondylosis without myelopathy Chronic low back pain without sciatica, unspecified back pain laterality Hereditary and idiopathic peripheral neuropathy Unspecified hereditary and idiopathic peripheral neuropathy Spinal stenosis of lumbar region, unspecified whether neurogenic claudication present Radiculopathy, lumbar region Thoracic or lumbosacral neuritis or radiculitis, unspecified [facility]* Diagnosis Gastroesophageal reflux disease without esophagitis- Primary Esophageal reflux Acute gastritis without hemorrhage, unspecified gastritis type documented [facility] [facility] Diagnosis FDC (current) use of anticoagulants- Primary Long-term (current) use of anticoagulants Recurrent pulmonary embolism (HCC) Other pulmonary embolism and infarction [facility] 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 Long-term (current) use of anticoagulants Recurrent pulmonary embolism (HCC) Other pulmonary embolism and infarction [facility] Diagnosis Spinal stenosis of lumbar region, unspecified whether neurogenic claudication present- Primary Lumbar spondylosis Lumbosacral spondylosis without myelopathy [facility] Diagnosis Mixed hyperlipidemia- Primary Recurrent pulmonary embolism (HCC) Other pulmonary embolism and infarction 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 Long-term (current) use of anticoagulants Acute gastritis without hemorrhage, unspecified gastritis type History of left-sided carotid endarterectomy Spinal stenosis of lumbar region, unspecified whether neurogenic claudication present Primary hypertension Unspecified essential hypertension documented in this encounter [facility] note* Diagnosis Recurrent pulmonary embolism (HCC) Other pulmonary embolism and infarction [facility] Diagnosis Primary hypertension Unspecified essential hypertension [facility] Diagnosis Acute gastritis without hemorrhage, unspecified gastritis type [facility] Diagnosis Encounter for therapeutic drug monitoring- Primary Mixed hyperlipidemia Impaired fasting glucose Vitamin D deficiency Unspecified vitamin D deficiency [facility] Diagnosis Acute gastritis without hemorrhage, unspecified gastritis type- Primary Chronic low back pain without sciatica, unspecified back pain laterality documented in this encounter [facility] note* Diagnosis Impaired fasting glucose- Primary [facility] Diagnosis Insomnia, unspecified type- Primary [facility] 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 Long-term (current) use of anticoagulants Recurrent pulmonary embolism (HCC) Other pulmonary embolism and infarction [facility] Diagnosis Recurrent pulmonary embolism (HCC)- Primary Other pulmonary embolism and infarction documented in this encounter [facility] note* Diagnosis Insomnia, unspecified type [facility] Diagnosis Chronic low back pain without sciatica, unspecified back pain laterality [facility] Diagnosis Acute bilateral low back pain without sciatica- Primary Lumbar pain Lumbago Fall, subsequent encounter Recurrent pulmonary embolism (HCC) Other pulmonary embolism and infarction [facility] Diagnosis Chronic low back pain without sciatica, unspecified back pain laterality [facility] Diagnosis FDC (current) use of anticoagulants- Primary Long-term (current) use of anticoagulants Recurrent pulmonary embolism (HCC) Other pulmonary embolism and infarction [facility] Diagnosis Chronic low back pain without sciatica, unspecified back pain laterality [facility]* Diagnosis Lumbar pain Lumbago Acute bilateral low back pain without sciatica Fall, subsequent encounter [facility] Diagnosis Compression fracture of L1 vertebra with routine healing, subsequent encounter- Primary [facility]* Diagnosis Compression fracture of L1 vertebra, initial encounter ([facility] Diagnosis [facility]DC (current) use of anticoagulants- Primary Long-term (current) [...] Sciatic leg [facility] Lumbar pain Lumbago Acute bilateral low back pain without sciatica Fall, subsequent encounter [facility] 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 Long-term (current) [...] [facility] 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 Long-term (current) [...] [facility] Diagnosis FDC (current) use of anticoagulants- Primary Long-term (current) [...] [facility] Diagnosis FDC (current) use of anticoagulants- Primary Long-term (current) [...] of tobacco use, presenting hazards to health BPH with obstruction/lower urinary tract symptoms Hypertrophy of prostate with urinary obstruction and other lower urinary tract symptoms (LUTS) SOB (shortness of breath) Shortness of breath [facility] Diagnosis Compression fracture of L1 vertebra with routine healing, subsequent encounter Chronic low back pain without sciatica, unspecified back pain laterality [facility] Diagnosis FDC (current) use of anticoagulants- Primary Long-term (current) [...] of kidney and ureter Impaired fasting glucose FDC (current) use of anticoagulants Long-term (current) use of anticoagulants Recurrent pulmonary embolism (HCC) Other pulmonary embolism and infarction Vitamin D deficiency Unspecified vitamin D deficiency Encounter for therapeutic drug monitoring [facility] Diagnosis Compression fracture of L1 vertebra with routine healing, subsequent encounter Chronic bilateral low back pain with bilateral sciatica [facility] Diagnosis FDC (current) use of anticoagulants- Primary Long-term (current) use of anticoagulants Recurrent pulmonary embolism (HCC) Other pulmonary embolism and infarction [facility] Diagnosis Compression fracture of L1 vertebra with routine healing, subsequent encounter Chronic bilateral low back pain with bilateral sciatica [facility] 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 Long-term (current) use of anticoagulants Recurrent pulmonary embolism (HCC) Other pulmonary embolism and infarction [facility] Diagnosis FDC (current) use of anticoagulants- Primary Long-term (current) [...] Insomnia, unspecified type [facility] Diagnosis Primary hypertension- Primary Unspecified essential [...] Unspecified essential hypertension [facility] Diagnosis Primary hypertension- Primary Unspecified [...] Neck pain Cervicalgia [facility] Diagnosis Primary hypertension- Primary Unspecified essential hypertension Dizziness Dizziness and giddiness Chronic low back pain without sciatica, unspecified back pain laterality Neck pain Cervicalgia Recurrent pulmonary embolism (HCC) Other pulmonary embolism and infarction [facility] Diagnosis Recurrent pulmonary embolism (HCC) Other pulmonary embolism and infarction Pain, dental Unspecified disorder of the teeth and supporting structures Compression fracture of L1 vertebra with routine healing, subsequent encounter Chronic low back pain without sciatica, unspecified back pain laterality Primary hypertension Unspecified essential hypertension [facility] Diagnosis Recurrent pulmonary embolism (HCC) Other pulmonary embolism and infarction [facility] Diagnosis Primary hypertension Unspecified essential hypertension Dizziness Dizziness and giddiness documented [facility]* Diagnosis Insomnia, unspecified type [facility] Diagnosis Recurrent pulmonary embolism (HCC)- Primary Other pulmonary embolism and infarction [facility]* Diagnosis Side effect of medication- Primary [facility]* Diagnosis Shortness of breath- Primary Chronic low back pain without sciatica, unspecified back pain laterality Neck pain Cervicalgia [facility]* Diagnosis Onychomycosis- Primary Dermatophytosis of nail Pain in toe of left foot Pain in limb Pain in toe of right foot Pain in limb PAD (peripheral artery disease) ([facility]) Peripheral vascular disease, unspecified Hammer toe, unspecified laterality [facility]* Diagnosis PAD (peripheral artery disease) ([facility])- Primary Peripheral vascular disease, unspecified Stenosis of left carotid artery Occlusion and stenosis of carotid artery without mention of cerebral infarction [facility]* Diagnosis Insomnia, unspecified type [facility]* Diagnosis Shortness of breath- Primary Primary hypertension Unspecified essential hypertension Chronic low back pain without sciatica, unspecified back pain laterality Bilateral carotid artery stenosis Occlusion and stenosis of carotid artery without mention of cerebral infarction Vision abnormalities Unspecified visual disturbance [facility] Diagnosis Compression fracture of L1 vertebra with routine healing, subsequent encounter- Primary Chronic bilateral low back pain with bilateral sciatica Lumbar pain Lumbago [facility]* Diagnosis Primary hypertension Unspecified essential hypertension [facility]* Diagnosis Shortness of breath [facility]* Diagnosis FDC (current) use of anticoagulants- Primary Long-term (current) use of anticoagulants Recurrent pulmonary embolism (HCC) Other pulmonary embolism and infarction [facility]* Diagnosis Shortness of breath [facility] Diagnosis Shortness of breath [facility] Diagnosis Shortness of breath- Primary Primary hypertension Unspecified essential hypertension Recurrent pulmonary embolism (HCC) Other pulmonary embolism and infarction Chronic low back pain without sciatica, unspecified back pain laterality Neck pain Cervicalgia [facility]* Diagnosis Chronic low back pain without sciatica, unspecified back pain laterality- Primary documented [facility]* Diagnosis Shortness of breath- Primary documented [facility]* Diagnosis Shortness of breath- Primary [facility]* Diagnosis Shortness of breath- Primary MCI (mild cognitive impairment) Mild cognitive impairment, so stated [facility]* Diagnosis PAD (peripheral artery disease)- Primary Peripheral vascular disease, unspecified Bilateral carotid artery stenosis Occlusion and stenosis of carotid artery without mention of cerebral infarction Primary hypertension Unspecified essential hypertension Mixed hyperlipidemia History of left-sided carotid endarterectomy Recurrent pulmonary embolism (HCC) Other pulmonary embolism and infarction [facility]* Diagnosis Chronic low back pain without sciatica, unspecified back pain laterality- Primary [facility] Diagnosis Macular hole of left eye- Primary Macular cyst, hole, or pseudohole of retina Posterior vitreous detachment of right eye Vitreous degeneration [facility]* Diagnosis Medicare annual wellness visit, subsequent- Primary Routine general medical examination at a health care facility Ulcer of toe of left foot, unspecified ulcer stage (HCC) Shortness of breath MCI (mild cognitive impairment) Mild cognitive impairment, so stated Primary hypertension Unspecified essential hypertension [facility]* Diagnosis Primary hypertension Unspecified essential hypertension Acute gastritis without hemorrhage, unspecified gastritis type Recurrent pulmonary embolism (HCC) Other pulmonary embolism and infarction [facility]* Diagnosis Chronic low back pain without sciatica, unspecified back pain laterality Neck pain Cervicalgia documented in this encounter [facility] note* Diagnosis Insomnia, unspecified type documented in this encounter [facility] note* Diagnosis Recurrent pulmonary embolism (HCC) Other pulmonary embolism and infarction Ulcer of toe of left foot, unspecified ulcer stage (HCC) documented in this encounter [facility] note* Diagnosis Encounter for therapeutic drug monitoring- Primary IFG (impaired fasting glucose) Impaired fasting glucose documented in this encounter [facility] note* 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 Long-term (current) use of anticoagulants Recurrent pulmonary embolism (HCC) Other pulmonary embolism and infarction documented in this encounter [facility] note* Diagnosis Primary hypertension Unspecified essential hypertension documented in this encounter [facility] note* Diagnosis SOB (shortness of breath)- Primary Shortness of breath Mild persistent asthma without complication (HCC) Unspecified asthma History of pulmonary embolism Personal history of pulmonary embolism documented in this encounter [facility] note* Diagnosis SOB (shortness of breath) Shortness of breath documented in this encounter [facility] note* Diagnosis Primary hypertension Unspecified essential hypertension documented in this encounter [facility] note* Diagnosis SOB (shortness of breath)- Primary Shortness of breath Chronic low back pain without sciatica, unspecified back pain laterality Compression fracture of L1 vertebra, sequela Recurrent pulmonary embolism (HCC) Other pulmonary embolism and infarction FDC (current) use of anticoagulants Long-term (current) use of anticoagulants IFG (impaired fasting glucose) Impaired fasting glucose Primary hypertension Unspecified essential hypertension Vitamin D deficiency Unspecified vitamin D deficiency Insomnia, unspecified type documented in this encounter [facility] for referral (narrative)* Outpatient Procedure (Routine) - Pending Review Specialty Diagnoses / Procedures Referred By Roula t Referred To [facility] Diagnoses PAD (peripheral artery disease) (HCC) Procedures PVR [facility] NON-INVASIVE PHYSIOLOGIC STUDY EXTREMITY 3 Edgar Rivas DO [address] [place] [address] [facility] [place] [address] [place] [address] Referral ID Status Reason Start Date Expiration Date Visits Requested Visits Authorized [id number] Pending Review Auto-Generat ed Referral 05/26/2023 05/25/2024 1 1 * Outpatient Procedure (Routine) - Pending Review Specialty Diagnoses / Procedures Referred By Contac t Referred To Contact [facility] Diagnoses Stenosis of left carotid artery Procedures US CAROTID ARTERIES [facility] DUPLEX SCAN EXTRACRANIAL ART COMPL BI STUDY Edgar Loaiza DO [address] [place] [address] [facility] [address] [address] Referral ID Status Reason Start Date Expiration Date Visits Requested Visits Authorized [id number] Pending Review Auto-Generat ed Referral 05/26/2023 05/25/2024 1 1 [facility] for referral (narrative)* Outpatient Procedure (Routine) - Pending Review Specialty Diagnoses / Procedures Referred By Contac t Referred To Contact [facility] Diagnoses Screening for ischemic heart disease Procedures ECG COMPLETE ECG ROUTINE ECG W/LEAST 12 LDS W/I&R Sunny Mercedes MD [address] [place] [address] [address] Referral ID Status Reason Start Date Expiration Date Visits Requested Visits Authorized [id number] Pending Review Auto-Generat ed Referral 06/08/2023 06/07/2024 1 1 [facility] for referral (narrative)* Outpatient Procedure (Routine) - Pending Review Specialty Diagnoses / Procedures Referred By Contac t Referred To Contact [facility] Diagnoses Primary hypertension Procedures ECHO ECHO TTHRC R-T 2D W/WOM-MODE COMPL SPEC&COLR D Zeny Lam, ERIK.THEATRICAL AGENT [address] [place] [address] [facility] [address] [address] Referral ID Status Reason Start Date Expiration Date Visits Requested Visits Authorized [id number] Pending Review Auto-Generat ed Referral 07/27/2023 07/26/2024 1 1 * Medication Prior Authorization - Closed Specialty Diagnoses / Procedures Referred By Contac t Referred To Contact Diagnoses Acute bilateral low back pain with bilateral sciatica Compression fracture of L1 vertebra with routine healing, subsequent encounter Chronic low back pain without sciatica, unspecified back pain laterality Zeny Lam APRN.CNP [address] [place] [address] Referral ID Status Reason Start Date Expiration Date Visits Re quested Visits Authorized [id number] Closed 1 1 [facility] for referral (narrative)* Outpatient Procedure (Routine) - Pending Review Specialty Diagnoses / Procedures Referred By Contac t Referred To Contact [facility] Diagnoses PAD (peripheral artery disease) (HCC) Procedures PVR [facility]G [facility] NON-INVASIVE PHYSIOLOGIC STUDY EXTREMITY 3 Edgar Rivas DO [address] [place] [address] [facility] [address] [address] Referral ID Status Reason Start Date Expiration Date Visits Requested Visits Authorized [id number] Pending Review Auto-Generat ed Referral 08/12/2023 08/11/2024 1 1 * Outpatient Procedure (Routine) - Pending Review Specialty Diagnoses / Procedures Referred By Contac t Referred To Contact [facility] Diagnoses Stenosis of left carotid artery Procedures US CAROTID ARTERIES ADIS [facility] LAB DUPLEX SCAN EXTRACRANIAL ART COMPL BI STUDY Edgar Loaiza DO [address] [place] [address] [facility] [address] [address] Referral ID Status Reason Start Date Expiration Date Visits Requested Visits Authorized [id number] Pending Review Auto-Generat ed Referral 08/12/2023 08/11/2024 1 1 [facility] for referral (narrative)* Outpatient Procedure (Routine) - New Request Specialty Diagnoses / Procedures Referred By Roula tolentino Referred To [facility] Diagnoses SOB (shortness of breath) Procedures ECG COMPLETE ECG ROUTINE ECG W/LEAST 12 LDS W/I&R Zeny Lam APRN.THEATRICAL AGENT [address] [place] [address] [facility] [place] [address] [place] [address] Referral ID Status Reason Start Date Expiration Date Visits Requested Visits Authorized [id number] New Request Auto-Generat ed Referral 01/06/2024 01/05/2025 1 1 [facility] for referral (narrative)* Diagnostic Procedure Only (Routine) - Closed Specialty Diagnoses / Procedures Referred By Roula tolentino Referred To Contact XR IMAGING Diagnoses Neck pain Procedures XR CERV OTHER 4V AP/LAT/OBL RADEX SPINE CERVICAL 4 OR 5 VIEWS Zeny Lam APRN.THEATRICAL AGENT [address] [place] [address] Xr Imaging [facility] Referral ID Status Reason Start Date Expiration Date V isits Requested Visits Authorized [id number] Closed Auto-Generate d Referral 02/01/2024 03/02/2025 1 1 [facility] for referral (narrative)No reason for referral information availableWParkwood Hospital Work Phone: Reason for visit Narrative* Diagnostic Procedure Only (Routine) - Closed Specialty Diagnoses / Procedures Referred By Roula tolentino Referred To Contact Radiology / [facility] Diagnoses ML Procedures XR CHEST Zeny Lam APRN.CNP [facility] [place] [address] [facility] [address] [place] [address] Referral ID Status Reason Start Date Expiration Date Visits Re quested Visits Authorized [id number] Closed 08/25/2023 08/25/2023 1 1 [facility] for visit Narrative* Diagnostic Procedure Only (Routine) - Closed Specialty Diagnoses / Procedures Referred By Contac t Referred To Contact XR IMAGING Diagnoses Neck pain Procedures XR CERV OTHER 4V AP/LAT/OBL RADEX SPINE CERVICAL 4 OR 5 VIEWS Zeny Lam, AIR CONDITIONING SUPERVISOR.THEATRICAL AGENT [address] [place] [address] [place] [address] Referral ID Status Reason Start Date Expiration Date V isits Requested Visits Authorized [id number] Closed Auto-Generate d Referral 02/01/2024 03/02/2025 1 1 [facility] for visit Narrative* Diagnostic Procedure Only (Routine) - Closed Specialty Diagnoses / Procedures Referred By Contac t Referred To Contact [facility] Diagnoses Shortness of breath Procedures NM CARDIAC PERF STRESS/PHARM MYOCARDIAL SPECT MULTIPLE STUDIES Teri Gruber, AIR CONDITIONING SUPERVISOR.THEATRICAL AGENT [address] [place] [address] Phone: tel: fax: [facility] [address] [place], [place] [id number] Phone: tel: Referral ID Status Reason Start Date Expiration Date V isits Requested Visits Authorized [id number] Closed Auto-Generate d Referral 05/17/2024 06/16/2025 1 1 [facility] for visit Narrative* Consult, Test, Treat (Routine) [...] W/ESTIM EACH ADDL 15 MIN Zeny Lam, AIR CONDITIONING SUPERVISOR.THEATRICAL AGENT [address] [place] [address] Phone: tel: fax: [facility] [place] [address] [place] [address] Referral ID Status Reason Start Date Expiration Date Visits Requested Visits Authorized [id number] Authorized PCP Requested Referral Patient Cleared Patient agrees to sign AFR (ERIC Anders or PAN ROBBINS) 06/04/2024 04/05/2025 12 12 [facility] Advance Directives Documents on File Type Date Recorded Patient A And P Mechanic Expl anation Advance Directive(s) 03/13/2021 11:31 AM Advance Directive(s) 05/10/2020 7:33 AM Advance Directive(s) 05/01/2020 2:41 PM Advance Directive(s) 06/06/2019 5:02 PM Advance Directive(s) 05/17/2019 11:49 AM Advance Directive(s) 01/14/2016 7:29 AM Documents on File Type Date Recorded Patient A And P Mechanic Expl anation Advance Directive(s) 03/13/2021 11:31 AM Advance Directive(s) 05/10/2020 7:33 AM Advance Directive(s) 05/01/2020 2:41 PM Advance Directive(s) 06/06/2019 5:02 PM Advance Directive(s) 05/17/2019 11:49 AM Advance Directive(s) 01/14/2016 7:29 AM Advance Directive Response Recorded Date/ Time Advance Directives No May 08, 2014 12:48pm Living Will Yes September 28, 2021 1:39pm Power of Pararescue Manager Yes September 28 1:39pm Name of Medical Power of Pararescue Manager Twyla Freire September 28, 2021 1:39pm Documents on File Type Date Recorded Patient A And P Mechanic Expl anation Advance Directive(s) 03/13/2021 11:31 AM Advance Directive Response Recorded Date/ Time Advance Directives No May 08, 2014 11:48am Living Will Yes March 20 1:43pm Power of Pararescue Manager Yes March 20, 2022 1:43pm Name of Medical Power of Pararescue Manager LARISSA FREIRE March 20, 2022 1:43pm Documents on File Type Date Recorded Patient A And P Mechanic Expl anation Advance Directive(s) 03/13/2021 11:31 AM Advance Directive Response Recorded Date/ Time Do you have a Healthcare Power of Pararescue Manager? Yes November 19, 2024 7:12pm Advance Directives No May 08, 2014 12:48pm Health Concerns Infection Onset Date Last Indicated Resolved Time COVID-19 Rule-Out 06/28/2021 07/03/2021 Reason for Referral Specialty Diagnoses / Procedures Referred By Contac t Referred To Contact Diagnoses Insomnia, unspecified type Franc Hills MD [address] [place], [place] [id number] Referral ID Status Reason Start Date Expiration Date V isits Requested Visits Authorized [id number] Pending Review 1 1 Specialty Diagnoses / Procedures Referred By Contac t Referred To Contact Diagnoses Chronic low back pain without sciatica, unspecified back pain laterality Spinal stenosis of lumbar region, unspecified whether neurogenic claudication present Procedures CONSULT TO SPINE SURGERY OFFICE/OUTPATIENT [facility] 60-74 MINUTES Franc Hills MD [address] [place] [address] Referral ID Status Reason Start Date Expiration Date Visits Requested Visits Authorized [id number] Pending Review PCP Requested Referral 09/24/2022 09/24/2023 1 1 Specialty Diagnoses / Procedures Referred By Contac t Referred To Contact Diagnoses Chronic low back pain without sciatica, unspecified back pain laterality Franc Hills MD [address] [place] [address] Referral ID Status Reason Start Date Expiration Date V isits Requested Visits Authorized [id number] Pending Review 1 1 Referral ID Status Reason Start Date Expiration Date Visits Re quested Visits Authorized [id number] Closed 1 1 Specialty Diagnoses / Procedures Referred By Contac t Referred To Contact General Surgery Diagnoses Acute gastritis without hemorrhage, unspecified gastritis type Procedures CONSULT TO GENERAL SURGERY OFFICE/OUTPATIENT [facility] 60-74 MINUTES Zeny Lam APRN.THEATRICAL AGENT [address] [place] [address] Referral ID Status Reason Start Date Expiration Date Visits Requested Visits Authorized [id number] Pending Review PCP Requested Referral 3 02/23/2024 1 1 Specialty Diagnoses / Procedures Referred By Contac t Referred To Contact Diagnoses Chronic low back pain without sciatica, unspecified back pain laterality Zeny Lam APRN.THEATRICAL AGENT [address] [place], [place] [id number] Referral ID Status Reason Start Date Expiration Date Visits Re quested Visits Authorized [id number] Closed 1 1 Specialty Diagnoses / Procedures Referred By Contac t Referred To Contact MR IMAGING Diagnoses Lumbar pain Acute bilateral low back pain without sciatica Fall, subsequent encounter Procedures MRI LUMBAR SPINE WO IVCON MRI SPINAL CANAL LUMBAR W/O CONTRAST MATERIAL Zeny Lam APRN.THEATRICAL AGENT [address] [place] [address] [place] [address] Referral ID Status Reason Start Date Expiration Date Visits Requested Visits Authorized [id number] Pending Review Auto-Generat ed Referral 05/18/2023 06/16/2024 1 1 Referral ID Status Reason Start Date Expiration Date Visits Re quested Visits Authorized [id number] Closed 1 1 Referral ID Status Reason Start Date Expiration Date V isits Requested Visits Authorized [id number] Closed Auto-Generate d Referral 05/29/2023 09/04/2023 1 1 Specialty Diagnoses / Procedures Referred By Contac t Referred To Contact [facility] [place] Diagnoses Compression fracture of L1 vertebra with routine healing, subsequent encounter Procedures CONSULT TO SP[facility] OFFICE/OUTPATIENT [facility] 60 MINUTES Zeny Lam APRN.THEATRICAL AGENT [address] [place] [address] Referral ID Status Reason Start Date Expiration Date Visits Requested Visits Authorized [id number] Authorized PCP Requested Referral 05/29/2023 05/28/2024 1 1 Referral ID Status Reason Start Date Expiration Date Visits Re quested Visits Authorized [id number] Closed 1 1 Specialty Diagnoses / Procedures Referred By Contac t Referred To Contact [facility] Diagnoses Chronic low back pain without sciatica, unspecified back pain laterality Compression fracture of L1 vertebra with routine healing, subsequent encounter Sciatic leg pain Procedures CONSULT TO PHYSICAL THERAPY PHYSICAL THERAPY EVALUATION [facility] 45 MINS Zeny Lam APRN.THEATRICAL AGENT [address] [place] [address] [facility] [place] [address] [place] [address] Referral ID Status Reason Start Date Expiration Date Visits Requested Visits Authorized [id number] Pending Review Auto-Generat ed Referral 06/15/2023 06/14/2024 1 1 Referral ID Status Reason Start Date Expiration Date Visits Re quested Visits Authorized [id number] Closed 1 1 Specialty Diagnoses / Procedures Referred By Contac t Referred To Contact Diagnoses Chronic low back pain without sciatica, unspecified back pain laterality Compression fracture of L1 vertebra with routine healing, subsequent encounter Zeny Lam APRN.THEATRICAL AGENT [address] [place] [address] Referral ID Status Reason Start Date Expiration Date Visits Re quested Visits Authorized [id number] Closed 1 1 Specialty Diagnoses / Procedures Referred By Contac t Referred To Contact [facility] Diagnoses Acute bilateral low back pain with bilateral sciatica Compression fracture of L1 vertebra with routine healing, subsequent encounter Chronic low back pain without sciatica, unspecified back pain laterality Procedures CONSULT TO PHYSICAL THERAPY PHYSICAL THERAPY EVALUATION [facility] 45 MINS Zeny Lam APRN.THEATRICAL AGENT [address] [place] [address] [facility] [place] [address] [place] [address] Referral ID Status Reason Start Date Expiration Date Visits Requested Visits Authorized [id number] Pending Review Auto-Generat ed Referral 06/29/2023 06/28/2024 1 1 Specialty Diagnoses / Procedures Referred By Contac t Referred To Contact Diagnoses Acute bilateral low back pain with bilateral sciatica Compression fracture of L1 vertebra with routine healing, subsequent encounter Chronic low back pain without sciatica, unspecified back pain laterality Procedures CONSULT TO WELLNESS NON-PHARMACOLOGIC PAIN MANAGEMENT OFFICE/OUTPATIENT [facility] 60 MINUTES Zeny Lam APRN.THEATRICAL AGENT [address] [place] [address] Referral ID Status Reason Start Date Expiration Date Visits Requested Visits Authorized [id number] Authorized PCP Requested Referral 06/29/2023 06/28/2024 1 1 Specialty Diagnoses / Procedures Referred By Contac t Referred To Contact [facility] [place] Diagnoses Acute bilateral low back pain with bilateral sciatica Compression fracture of L1 vertebra with routine healing, subsequent encounter Chronic low back pain without sciatica, unspecified back pain laterality Procedures CONSULT TO [facility] OFFICE/OUTPATIENT [facility] 60 MINUTES Zeny Lam APRN.THEATRICAL AGENT [address] [place] [address] Referral ID Status Reason Start Date Expiration Date Visits Requested Visits Authorized [id number] Authorized PCP Requested Referral 06/29/2023 06/28/2024 1 1 Specialty Diagnoses / Procedures Referred By Contac t Referred To Contact Diagnoses Acute bilateral low back pain with bilateral sciatica Compression fracture of L1 vertebra with routine healing, subsequent encounter Chronic low back pain without sciatica, unspecified back pain laterality Zeny Lam APRN.THEATRICAL AGENT [address] [place], [place] [id number] Referral ID Status Reason Start Date Expiration Date Visits Re quested Visits Authorized [id number] Closed 1 1 Referral ID Status Reason Start Date Expiration Date Visits Re quested Visits Authorized [id number] Closed 1 1 Specialty Diagnoses / Procedures Referred By Contac t Referred To Contact Diagnoses Acute bilateral low back pain with bilateral sciatica Compression fracture of L1 vertebra with routine healing, subsequent encounter Chronic low back pain without sciatica, unspecified back pain laterality Franc Hills MD [address] [place] [address] Referral ID Status Reason Start Date Expiration Date Visits Re quested Visits Authorized [id number] Closed 1 1 Specialty Diagnoses / Procedures Referred By Contac t Referred To Contact Urology Diagnoses BPH with obstruction/lower urinary tract symptoms Procedures CONSULT TO UROLOGY OFFICE/OUTPATIENT [facility] 60 MINUTES Franc Hills MD [address] [place] [address] Referral ID Status Reason Start Date Expiration Date Visits Requested Visits Authorized [id number] Authorized PCP Requested Referral 07/18/2023 07/17/2024 1 1 Referral ID Status Reason Start Date Expiration Date Visits Re quested Visits Authorized [id number] Closed 1 1 Referral ID Status Reason Start Date Expiration Date Visits Re quested Visits Authorized [id number] Closed 1 1 Referral ID Status Reason Start Date Expiration Date Visits Re quested Visits Authorized [id number] Closed 1 1 Referral ID Status Reason Start Date Expiration Date Visits Re quested Visits Authorized [id number] Closed 1 1 Specialty Diagnoses / Procedures Referred By Contac t Referred To Contact [facility] Diagnoses Compression fracture of L1 vertebra with routine healing, subsequent encounter Chronic low back pain without sciatica, unspecified back pain laterality Procedures CONSULT TO PHYSICAL THERAPY PHYSICAL THERAPY EVALUATION [facility] 45 MINS Irene Moraes MD [address] [place] [address] [facility] [place] [address] [place] [address] Referral ID Status Reason Start Date Expiration Date Visits Requested Visits Authorized [id number] Pending Review Auto-Generat ed Referral 08/27/2023 08/26/2024 1 1 Specialty Diagnoses / Procedures Referred By Contac t Referred To Contact Diagnoses Compression fracture of L1 vertebra with routine healing, subsequent encounter Chronic low back pain without sciatica, unspecified back pain laterality Procedures CONSULT FOR ACUPUNCTURE ACUPUNCTURE 1/> NDLS W/ELEC STIMJ 1ST 15 MIN ACUP 1/> NDLS W/ELEC STIMJ EA 15 MIN W/RE-INSJ Irene Moares MD [address] [place] [address] Referral ID Status Reason Start Date Expiration Date Visits Requested Visits Authorized [id number] Pending Review PCP Requested Referral 08/27/2023 11/25/2023 1 1 Specialty Diagnoses / Procedures Referred By Contac t Referred To Contact Diagnoses Pain, dental Compression fracture of L1 vertebra with routine healing, subsequent encounter Chronic low back pain without sciatica, unspecified back pain laterality Zeny Lam APRN.THEATRICAL AGENT [address] [place] [address] Referral ID Status Reason Start Date Expiration Date Visits Re quested Visits Authorized [id number] Closed 1 1 Specialty Diagnoses / Procedures Referred By Contac t Referred To Contact Diagnoses Chronic low back pain without sciatica, unspecified back pain laterality Neck pain Zeny Lam APRN.THEATRICAL AGENT [address] [place] [address] Referral ID Status Reason Start Date Expiration Date Visits Re quested Visits Authorized [id number] Closed 1 1 Specialty Diagnoses / Procedures Referred By Contac t Referred To Contact CT IMAGING Diagnoses Primary hypertension Dizziness Procedures CT BRAIN WO IVCON CT HEAD/BRAIN W/O CONTRAST MATERIAL Zeny Lam APRN.THEATRICAL AGENT [address] [place] [address] [place] [address] Referral ID Status Reason Start Date Expiration Date Visits Requested Visits Authorized [id number] Authorized Auto-Generat ed Referral 03/16/2025 1 1 Referral ID Status Reason Start Date Expiration Date V isits Requested Visits Authorized [id number] Closed Auto-Generate d Referral 02/15/2024 03/16/2025 1 1 Chief Complaint and Reason for Visit Chief Complaint FALL Reason for Visit Hx of adenomatous co lonic polyps Chief Complaint Admit Date foreing body November 19, 2024 7: 05pm Family History Relationship Condition Age at Onset Recorded Date/T latasha father Coronary artery disease Unknown Myocardial infarction Unknown Medications Administered Section Active Administered Medications - up to 3 most recent administrations Medication Order MAR Action Action Date Dose Rate Site fluorescein-benoxinate 0.25-0.4 % 1 Drop (FLURESS) 1 Drop, BOTH EYES, DIRECTED, Starting on Thu12/10/21 at 0943, Until Thu12/10/21 at 2141, Administer for applanation tonometry. In the event of a Fluress shortage, administer 1 drop of Sidra-Fluor into both eyes as directed for applanation tonometry., [facility] MED ORDERS Given 12/10/2021 9:43 AM EDT 1 Drop PHENYLephrine 2.5 % 1 Drop (AK-DILATE, STERLING-SYNEPHRINE) 1 Drop, BOTH EYES, DIRECTED, Starting on Thu12/10/21 at 0943, Until Thu12/10/21 at 2141, Administer for dilation PROTECT FROM LIGHT, [facility] MED ORDERS Given 12/10/2021 9:43 AM EDT 1 Drop tropicamide 1 % 1 Drop (MYDRIACYL) 1 Drop, BOTH EYES, DIRECTED, Starting on Thu12/10/21 at 0943, Until Thu12/10/21 at 2141, Administer for dilation, [facility] MED ORDERS [...] or prosecute any alcohol or drug abuse patient.[facility] the event this information is protected by the Federal Confidentiality of Alcohol and Drug Abuse Patient Records regulations: The Federal rules restrict any use of the information to criminally investigate or prosecute any alcohol or drug abuse patient.[facility] the event this information is protected by the Federal Confidentiality of Alcohol and Drug Abuse Patient Records regulations: The Federal rules restrict any use of the information to criminally investigate or prosecute any alcohol or drug abuse patient.[facility] Township[facility] the event this information is protected by the Federal Confidentiality of Alcohol and Drug Abuse Patient Records regulations: The Federal rules restrict any use of the information to criminally investigate or prosecute any alcohol or drug abuse patient.[facility] TownshipIn the event this information is protected by the Federal Confidentiality of Alcohol and Drug Abuse Patient Records regulations: The Federal rules restrict any use of the information to criminally investigate or prosecute any alcohol or drug abuse patient.[facility] Township[facility] the event this information is protected by the Federal Confidentiality of Alcohol and Drug Abuse Patient Records regulations: The Federal rules restrict any use of the information to criminally investigate or prosecute any alcohol or drug abuse patient.[facility] Township[facility] the event this information is protected by the Federal Confidentiality of Alcohol and Drug Abuse Patient Records regulations: The Federal rules restrict any use of the information to criminally investigate or prosecute any alcohol or drug abuse patient.[facility] TownshipIn the event this information is protected by the Federal Confidentiality of Alcohol and Drug Abuse Patient Records regulations: The Federal rules restrict any use of the information to criminally investigate or prosecute any alcohol or drug abuse patient.[facility] Township[facility] the event this information is protected by the Federal Confidentiality of Alcohol and Drug Abuse Patient Records regulations: The Federal rules restrict any use of the information to criminally investigate or prosecute any alcohol or drug abuse patient.[facility] Township[facility] the event this information is protected by the Federal Confidentiality of Alcohol and Drug Abuse Patient Records regulations: The Federal rules restrict any use of the information to criminally investigate or prosecute any alcohol or drug abuse patient.[facility] Township[facility] the event this information is protected by the Federal Confidentiality of Alcohol and Drug Abuse Patient Records regulations: The Federal rules restrict any use of the information to criminally investigate or prosecute any alcohol or drug abuse patient.[facility] TownshipIn the event this information is protected by the Federal Confidentiality of Alcohol and Drug Abuse Patient Records regulations: The Federal rules restrict any use of the information to criminally investigate or prosecute any alcohol or drug abuse patient.[facility] TownshipIn the event this information is protected by the Federal Confidentiality of Alcohol and Drug Abuse Patient Records regulations: The Federal rules restrict any use of the information to criminally investigate or prosecute any alcohol or drug abuse patient.[facility] TownshipIn the event this information is protected by the Federal Confidentiality of Alcohol and Drug Abuse Patient Records regulations: The Federal rules restrict any use of the information to criminally investigate or prosecute any alcohol or drug abuse patient.[facility] TownshipIn the event this information is protected by the Federal Confidentiality of Alcohol and Drug Abuse Patient Records regulations: The Federal rules restrict any use of the information to criminally investigate or prosecute any alcohol or drug abuse patient.[facility] TownshipIn the event this information is protected by the Federal Confidentiality of Alcohol and Drug Abuse Patient Records regulations: The Federal rules restrict any use of the information to criminally investigate or prosecute any alcohol or drug abuse patient.[facility] TownshipIn the event this information is protected by the Federal Confidentiality of Alcohol and Drug Abuse Patient Records regulations: The Federal rules restrict any use of the information to criminally investigate or prosecute any alcohol or drug abuse patient.[facility] TownshipIn the event this information is protected by the Federal Confidentiality of Alcohol and Drug Abuse Patient Records regulations: The Federal rules restrict any use of the information to criminally investigate or prosecute any alcohol or drug abuse patient.[facility] TownshipIn the event this information is protected by the Federal Confidentiality of Alcohol and Drug Abuse Patient Records regulations: The Federal rules restrict any use of the information to criminally investigate or prosecute any alcohol or drug abuse patient.[facility] TownshipIn the event this information is protected by the Federal Confidentiality of Alcohol and Drug Abuse Patient Records regulations: The Federal rules restrict any use of the information to criminally investigate or prosecute any alcohol or drug abuse patient.[facility] TownshipIn the event this information is protected by the Federal Confidentiality of Alcohol and Drug Abuse Patient Records regulations: The Federal rules restrict any use of the information to criminally investigate or prosecute any alcohol or drug abuse patient.[facility] TownshipIn the event this information is protected by the Federal Confidentiality of Alcohol and Drug Abuse Patient Records regulations: The Federal rules restrict any use of the information to criminally investigate or prosecute any alcohol or drug abuse patient.[facility] TownshipIn the event this information is protected by the Federal Confidentiality of Alcohol and Drug Abuse Patient Records regulations: The Federal rules restrict any use of the information to criminally investigate or prosecute any alcohol or drug abuse patient.[facility] TownshipIn the event this information is protected by the Federal Confidentiality of Alcohol and Drug Abuse Patient Records regulations: The Federal rules restrict any use of the information to criminally investigate or prosecute any alcohol or drug abuse patient.[facility] TownshipIn the event this information is protected by the Federal Confidentiality of Alcohol and Drug Abuse Patient Records regulations: The Federal rules restrict any use of the information to criminally investigate or prosecute any alcohol or drug abuse patient.[facility] TownshipIn the event this information is protected by the Federal Confidentiality of Alcohol and Drug Abuse Patient Records regulations: The Federal rules restrict any use of the information to criminally investigate or prosecute any alcohol or drug abuse patient.[facility] TownshipIn the event this information is protected by the Federal Confidentiality of Alcohol and Drug Abuse Patient Records regulations: The Federal rules restrict any use of the information to criminally investigate or prosecute any alcohol or drug abuse patient.[facility] TownshipIn the event this information is protected by the Federal Confidentiality of Alcohol and Drug Abuse Patient Records regulations: The Federal rules restrict any use of the information to criminally investigate or prosecute any alcohol or drug abuse patient.[facility] TownshipIn the event this information is protected by the Federal Confidentiality of Alcohol and Drug Abuse Patient Records regulations: The Federal rules restrict any use of the information to criminally investigate or prosecute any alcohol or drug abuse patient.[facility] TownshipIn the event this information is protected by the Federal Confidentiality of Alcohol and Drug Abuse Patient Records regulations: The Federal rules restrict any use of the information to criminally investigate or prosecute any alcohol or drug abuse patient.[facility] TownshipIn the event this information is protected by the Federal Confidentiality of Alcohol and Drug Abuse Patient Records regulations: The Federal rules restrict any use of the information to criminally investigate or prosecute any alcohol or drug abuse patient.[facility] TownshipIn the event this information is protected by the Federal Confidentiality of Alcohol and Drug Abuse Patient Records regulations: The Federal rules restrict any use of the information to criminally investigate or prosecute any alcohol or drug abuse patient.[facility] TownshipIn the event this information is protected by the Federal Confidentiality of Alcohol and Drug Abuse Patient Records regulations: The Federal rules restrict any use of the information to criminally investigate or prosecute any alcohol or drug abuse patient.[facility] TownshipIn the event this information is protected by the Federal Confidentiality of Alcohol and Drug Abuse Patient Records regulations: The Federal rules restrict any use of the information to criminally investigate or prosecute any alcohol or drug abuse patient.[facility] TownshipIn the event this information is protected by the Federal Confidentiality of Alcohol and Drug Abuse Patient Records regulations: The Federal rules restrict any use of the information to criminally investigate or prosecute any alcohol or drug abuse patient.[facility] TownshipIn the event this information is protected by the Federal Confidentiality of Alcohol and Drug Abuse Patient Records regulations: The Federal rules restrict any use of the information to criminally investigate or prosecute any alcohol or drug abuse patient.[facility] TownshipIn the event this information is protected by the Federal Confidentiality of Alcohol and Drug Abuse Patient Records regulations: The Federal rules restrict any use of the information to criminally investigate or prosecute any alcohol or drug abuse patient.[facility] TownshipIn the event this information is protected by the Federal Confidentiality of Alcohol and Drug Abuse Patient Records regulations: The Federal rules restrict any use of the information to criminally investigate or prosecute any alcohol or drug abuse patient.[facility] TownshipIn the event this information is protected by the Federal Confidentiality of Alcohol and Drug Abuse Patient Records regulations: The Federal rules restrict any use of the information to criminally investigate or prosecute any alcohol or drug abuse patient.[facility] TownshipIn the event this information is protected by the Federal Confidentiality of Alcohol and Drug Abuse Patient Records regulations: The Federal rules restrict any use of the information to criminally investigate or prosecute any alcohol or drug abuse patient.[facility] TownshipIn the event this information is protected by the Federal Confidentiality of Alcohol and Drug Abuse Patient Records regulations: The Federal rules restrict any use of the information to criminally investigate or prosecute any alcohol or drug abuse patient.[facility] TownshipIn the event this information is protected by the Federal Confidentiality of Alcohol and Drug Abuse Patient Records regulations: The Federal rules restrict any use of the information to criminally investigate or prosecute any alcohol or drug abuse patient.[facility] TownshipIn the event this information is protected by the Federal Confidentiality of Alcohol and Drug Abuse Patient Records regulations: The Federal rules restrict any use of the information to criminally investigate or prosecute any alcohol or drug abuse patient.[facility] TownshipIn the event this information is protected by the Federal Confidentiality of Alcohol and Drug Abuse Patient Records regulations: The Federal rules restrict any use of the information to criminally investigate or prosecute any alcohol or drug abuse patient.[facility] TownshipIn the event this information is protected by the Federal Confidentiality of Alcohol and Drug Abuse Patient Records regulations: The Federal rules restrict any use of the information to criminally investigate or prosecute any alcohol or drug abuse patient.[facility] TownshipIn the event this information is protected by the Federal Confidentiality of Alcohol and Drug Abuse Patient Records regulations: The Federal rules restrict any use of the information to criminally investigate or prosecute any alcohol or drug abuse patient.[facility] TownshipIn the event this information is protected by the Federal Confidentiality of Alcohol and Drug Abuse Patient Records regulations: The Federal rules restrict any use of the information to criminally investigate or prosecute any alcohol or drug abuse patient.[facility] TownshipIn the event this information is protected by the Federal Confidentiality of Alcohol and Drug Abuse Patient Records regulations: The Federal rules restrict any use of the information to criminally investigate or prosecute any alcohol or drug abuse patient.[facility] TownshipIn the event this information is protected by the Federal Confidentiality of Alcohol and Drug Abuse Patient Records regulations: The Federal rules restrict any use of the information to criminally investigate or prosecute any alcohol or drug abuse patient.[facility] TownshipIn the event this information is protected by the Federal Confidentiality of Alcohol and Drug Abuse Patient Records regulations: The Federal rules restrict any use of the information to criminally investigate or prosecute any alcohol or drug abuse patient.[facility] TownshipIn the event this information is protected by the Federal Confidentiality of Alcohol and Drug Abuse Patient Records regulations: The Federal rules restrict any use of the information to criminally investigate or prosecute any alcohol or drug abuse patient.[facility] TownshipIn the event this information is protected by the Federal Confidentiality of Alcohol and Drug Abuse Patient Records regulations: The Federal rules restrict any use of the information to criminally investigate or prosecute any alcohol or drug abuse patient.[facility] TownshipIn the event this information is protected by the Federal Confidentiality of Alcohol and Drug Abuse Patient Records regulations: The Federal rules restrict any use of the information to criminally investigate or prosecute any alcohol or drug abuse patient.[facility] TownshipIn the event this information is protected by the Federal Confidentiality of Alcohol and Drug Abuse Patient Records regulations: The Federal rules restrict any use of the information to criminally investigate or prosecute any alcohol or drug abuse patient.[facility] TownshipIn the event this information is protected by the Federal Confidentiality of Alcohol and Drug Abuse Patient Records regulations: The Federal rules restrict any use of the information to criminally investigate or prosecute any alcohol or drug abuse patient.[facility] TownshipIn the event this information is protected by the Federal Confidentiality of Alcohol and Drug Abuse Patient Records regulations: The Federal rules restrict any use of the information to criminally investigate or prosecute any alcohol or drug abuse patient.[facility] TownshipIn the event this information is protected by the Federal Confidentiality of Alcohol and Drug Abuse Patient Records regulations: The Federal rules restrict any use of the information to criminally investigate or prosecute any alcohol or drug abuse patient.[facility] TownshipIn the event this information is protected by the Federal Confidentiality of Alcohol and Drug Abuse Patient Records regulations: The Federal rules restrict any use of the information to criminally investigate or prosecute any alcohol or drug abuse patient.[facility] TownshipIn the event this information is protected by the Federal Confidentiality of Alcohol and Drug Abuse Patient Records regulations: The Federal rules restrict any use of the information to criminally investigate or prosecute any alcohol or drug abuse patient.[facility] TownshipIn the event this information is protected by the Federal Confidentiality of Alcohol and Drug Abuse Patient Records regulations: The Federal rules restrict any use of the information to criminally investigate or prosecute any alcohol or drug abuse patient.[facility] TownshipIn the event this information is protected by the Federal Confidentiality of Alcohol and Drug Abuse Patient Records regulations: The Federal rules restrict any use of the information to criminally investigate or prosecute any alcohol or drug abuse patient.[facility] TownshipIn the event this information is protected by the Federal Confidentiality of Alcohol and Drug Abuse Patient Records regulations: The Federal rules restrict any use of the information to criminally investigate or prosecute any alcohol or drug abuse patient.[facility] TownshipIn the event this information is protected by the Federal Confidentiality of Alcohol and Drug Abuse Patient Records regulations: The Federal rules restrict any use of the information to criminally investigate or prosecute any alcohol or drug abuse patient.[facility] TownshipIn the event this information is protected by the Federal Confidentiality of Alcohol and Drug Abuse Patient Records regulations: The Federal rules restrict any use of the information to criminally investigate or prosecute any alcohol or drug abuse patient.[facility] TownshipIn the event this information is protected by the Federal Confidentiality of Alcohol and Drug Abuse Patient Records regulations: The Federal rules restrict any use of the information to criminally investigate or prosecute any alcohol or drug abuse patient.[facility] TownshipIn the event this information is protected by the Federal Confidentiality of Alcohol and Drug Abuse Patient Records regulations: The Federal rules restrict any use of the information to criminally investigate or prosecute any alcohol or drug abuse patient.[facility] TownshipIn the event this information is protected by the Federal Confidentiality of Alcohol and Drug Abuse Patient Records regulations: The Federal rules restrict any use of the information to criminally investigate or prosecute any alcohol or drug abuse patient.[facility] TownshipIn the event this information is protected by the Federal Confidentiality of Alcohol and Drug Abuse Patient Records regulations: The Federal rules restrict any use of the information to criminally investigate or prosecute any alcohol or drug abuse patient.[facility] TownshipIn the event this information is protected by the Federal Confidentiality of Alcohol and Drug Abuse Patient Records regulations: The Federal rules restrict any use of the information to criminally investigate or prosecute any alcohol or drug abuse patient.[facility] TownshipIn the event this information is protected by the Federal Confidentiality of Alcohol and Drug Abuse Patient Records regulations: The Federal rules restrict any use of the information to criminally investigate or prosecute any alcohol or drug abuse patient.[facility] TownshipIn the event this information is protected by the Federal Confidentiality of Alcohol and Drug Abuse Patient Records regulations: The Federal rules restrict any use of the information to criminally investigate or prosecute any alcohol or drug abuse patient.[facility] TownshipIn the event this information is protected by the Federal Confidentiality of Alcohol and Drug Abuse Patient Records regulations: The Federal rules restrict any use of the information to criminally investigate or prosecute any alcohol or drug abuse patient.[facility] TownshipIn the event this information is protected by the Federal Confidentiality of Alcohol and Drug Abuse Patient Records regulations: The Federal rules restrict any use of the information to criminally investigate or prosecute any alcohol or drug abuse patient.[facility] TownshipIn the event this information is protected by the Federal Confidentiality of Alcohol and Drug Abuse Patient Records regulations: The Federal rules restrict any use of the information to criminally investigate or prosecute any alcohol or drug abuse patient.[facility] TownshipIn the event this information is protected by the Federal Confidentiality of Alcohol and Drug Abuse Patient Records regulations: The Federal rules restrict any use of the information to criminally investigate or prosecute any alcohol or drug abuse patient.[facility] TownshipIn the event this information is protected by the Federal Confidentiality of Alcohol and Drug Abuse Patient Records regulations: The Federal rules restrict any use of the information to criminally investigate or prosecute any alcohol or drug abuse patient.[facility] TownshipIn the event this information is protected by the Federal Confidentiality of Alcohol and Drug Abuse Patient Records regulations: The Federal rules restrict any use of the information to criminally investigate or prosecute any alcohol or drug abuse patient.[facility] TownshipIn the event this information is protected by the Federal Confidentiality of Alcohol and Drug Abuse Patient Records regulations: The Federal rules restrict any use of the information to criminally investigate or prosecute any alcohol or drug abuse patient.[facility] TownshipIn the event this information is protected by the Federal Confidentiality of Alcohol and Drug Abuse Patient Records regulations: The Federal rules restrict any use of the information to criminally investigate or prosecute any alcohol or drug abuse patient.[facility] TownshipIn the event this information is protected by the Federal Confidentiality of Alcohol and Drug Abuse Patient Records regulations: The Federal rules restrict any use of the information to criminally investigate or prosecute any alcohol or drug abuse patient.[facility] TownshipIn the event this information is protected by the Federal Confidentiality of Alcohol and Drug Abuse Patient Records regulations: The Federal rules restrict any use of the information to criminally investigate or prosecute any alcohol or drug abuse patient.[facility] TownshipIn the event this information is protected by the Federal Confidentiality of Alcohol and Drug Abuse Patient Records regulations: The Federal rules restrict any use of the information to criminally investigate or prosecute any alcohol or drug abuse patient.[facility] TownshipIn the event this information is protected by the Federal Confidentiality of Alcohol and Drug Abuse Patient Records regulations: The Federal rules restrict any use of the information to criminally investigate or prosecute any alcohol or drug abuse patient.[facility] TownshipIn the event this information is protected by the Federal Confidentiality of Alcohol and Drug Abuse Patient Records regulations: The Federal rules restrict any use of the information to criminally investigate or prosecute any alcohol or drug abuse patient.[facility] TownshipIn the event this information is protected by the Federal Confidentiality of Alcohol and Drug Abuse Patient Records regulations: The Federal rules restrict any use of the information to criminally investigate or prosecute any alcohol or drug abuse patient.[facility] TownshipIn the event this information is protected by the Federal Confidentiality of Alcohol and Drug Abuse Patient Records regulations: The Federal rules restrict any use of the information to criminally investigate or prosecute any alcohol or drug abuse patient.[facility] TownshipIn the event this information is protected by the Federal Confidentiality of Alcohol and Drug Abuse Patient Records regulations: The Federal rules restrict any use of the information to criminally investigate or prosecute any alcohol or drug abuse patient.[facility] TownshipIn the event this information is protected by the Federal Confidentiality of Alcohol and Drug Abuse Patient Records regulations: The Federal rules restrict any use of the information to criminally investigate or prosecute any alcohol or drug abuse patient.[facility] TownshipIn the event this information is protected by the Federal Confidentiality of Alcohol and Drug Abuse Patient Records regulations: The Federal rules restrict any use of the information to criminally investigate or prosecute any alcohol or drug abuse patient.[facility] TownshipIn the event this information is protected by the Federal Confidentiality of Alcohol and Drug Abuse Patient Records regulations: The Federal rules restrict any use of the information to criminally investigate or prosecute any alcohol or drug abuse patient.[facility] TownshipIn the event this information is protected by the Federal Confidentiality of Alcohol and Drug Abuse Patient Records regulations: The Federal rules restrict any use of the information to criminally investigate or prosecute any alcohol or drug abuse patient.[facility] TownshipIn the event this information is protected by the Federal Confidentiality of Alcohol and Drug Abuse Patient Records regulations: The Federal rules restrict any use of the information to criminally investigate or prosecute any alcohol or drug abuse patient.[facility] TownshipIn the event this information is protected by the Federal Confidentiality of Alcohol and Drug Abuse Patient Records regulations: The Federal rules restrict any use of the information to criminally investigate or prosecute any alcohol or drug abuse patient.[facility] TownshipIn the event this information is protected by the Federal Confidentiality of Alcohol and Drug Abuse Patient Records regulations: The Federal rules restrict any use of the information to criminally investigate or prosecute any alcohol or drug abuse patient.[facility] TownshipIn the event this information is protected by the Federal Confidentiality of Alcohol and Drug Abuse Patient Records regulations: The Federal rules restrict any use of the information to criminally investigate or prosecute any alcohol or drug abuse patient.[facility] TownshipIn the event this information is protected by the Federal Confidentiality of Alcohol and Drug Abuse Patient Records regulations: The Federal rules restrict any use of the information to criminally investigate or prosecute any alcohol or drug abuse patient.[facility] TownshipIn the event this information is protected by the Federal Confidentiality of Alcohol and Drug Abuse Patient Records regulations: The Federal rules restrict any use of the information to criminally investigate or prosecute any alcohol or drug abuse patient.[facility] TownshipIn the event this information is protected by the Federal Confidentiality of Alcohol and Drug Abuse Patient Records regulations: The Federal rules restrict any use of the information to criminally investigate or prosecute any alcohol or drug abuse patient.[facility] TownshipIn the event this information is protected by the Federal Confidentiality of Alcohol and Drug Abuse Patient Records regulations: The Federal rules restrict any use of the information to criminally investigate or prosecute any alcohol or drug abuse patient.[facility] TownshipIn the event this information is protected by the Federal Confidentiality of Alcohol and Drug Abuse Patient Records regulations: The Federal rules restrict any use of the information to criminally investigate or prosecute any alcohol or drug abuse patient.[facility] TownshipIn the event this information is protected by the Federal Confidentiality of Alcohol and Drug Abuse Patient Records regulations: The Federal rules restrict any use of the information to criminally investigate or prosecute any alcohol or drug abuse patient.[facility] TownshipIn the event this information is protected by the Federal Confidentiality of Alcohol and Drug Abuse Patient Records regulations: The Federal rules restrict any use of the information to criminally investigate or prosecute any alcohol or drug abuse patient.[facility] TownshipIn the event this information is protected by the Federal Confidentiality of Alcohol and Drug Abuse Patient Records regulations: The Federal rules restrict any use of the information to criminally investigate or prosecute any alcohol or drug abuse patient.[facility] TownshipIn the event this information is protected by the Federal Confidentiality of Alcohol and Drug Abuse Patient Records regulations: The Federal rules restrict any use of the information to criminally investigate or prosecute any alcohol or drug abuse patient.[facility] TownshipIn the event this information is protected by the Federal Confidentiality of Alcohol and Drug Abuse Patient Records regulations: The Federal rules restrict any use of the information to criminally investigate or prosecute any alcohol or drug abuse patient.[facility] TownshipIn the event this information is protected by the Federal Confidentiality of Alcohol and Drug Abuse Patient Records regulations: The Federal rules restrict any use of the information to criminally investigate or prosecute any alcohol or drug abuse patient.[facility] TownshipIn the event this information is protected by the Federal Confidentiality of Alcohol and Drug Abuse Patient Records regulations: The Federal rules restrict any use of the information to criminally investigate or prosecute any alcohol or drug abuse patient.[facility] TownshipIn the event this information is protected by the Federal Confidentiality of Alcohol and Drug Abuse Patient Records regulations: The Federal rules restrict any use of the information to criminally investigate or prosecute any alcohol or drug abuse patient.[facility] TownshipIn the event this information is protected by the Federal Confidentiality of Alcohol and Drug Abuse Patient Records regulations: The Federal rules restrict any use of the information to criminally investigate or prosecute any alcohol or drug abuse patient.[facility] TownshipIn the event this information is protected by the Federal Confidentiality of Alcohol and Drug Abuse Patient Records regulations: The Federal rules restrict any use of the information to criminally investigate or prosecute any alcohol or drug abuse patient.[facility] TownshipIn the event this information is protected by the Federal Confidentiality of Alcohol and Drug Abuse Patient Records regulations: The Federal rules restrict any use of the information to criminally investigate or prosecute any alcohol or drug abuse patient.[facility] TownshipIn the event this information is protected by the Federal Confidentiality of Alcohol and Drug Abuse Patient Records regulations: The Federal rules restrict any use of the information to criminally investigate or prosecute any alcohol or drug abuse patient.[facility] TownshipIn the event this information is protected by the Federal Confidentiality of Alcohol and Drug Abuse Patient Records regulations: The Federal rules restrict any use of the information to criminally investigate or prosecute any alcohol or drug abuse patient.[facility] TownshipIn the event this information is protected by the Federal Confidentiality of Alcohol and Drug Abuse Patient Records regulations: The Federal rules restrict any use of the information to criminally investigate or prosecute any alcohol or drug abuse patient.[facility] TownshipIn the event this information is protected by the Federal Confidentiality of Alcohol and Drug Abuse Patient Records regulations: The Federal rules restrict any use of the information to criminally investigate or prosecute any alcohol or drug abuse patient.[facility] TownshipIn the event this information is protected by the Federal Confidentiality of Alcohol and Drug Abuse Patient Records regulations: The Federal rules restrict any use of the information to criminally investigate or prosecute any alcohol or drug abuse patient.[facility] TownshipIn the event this information is protected by the Federal Confidentiality of Alcohol and Drug Abuse Patient Records regulations: The Federal rules restrict any use of the information to criminally investigate or prosecute any alcohol or drug abuse patient.[facility] TownshipIn the event this information is protected by the Federal Confidentiality of Alcohol and Drug Abuse Patient Records regulations: The Federal rules restrict any use of the information to criminally investigate or prosecute any alcohol or drug abuse patient.[facility] TownshipIn the event this information is protected by the Federal Confidentiality of Alcohol and Drug Abuse Patient Records regulations: The Federal rules restrict any use of the information to criminally investigate or prosecute any alcohol or drug abuse patient.[facility] TownshipIn the event this information is protected by the Federal Confidentiality of Alcohol and Drug Abuse Patient Records regulations: The Federal rules restrict any use of the information to criminally investigate or prosecute any alcohol or drug abuse patient.[facility] TownshipIn the event this information is protected by the Federal Confidentiality of Alcohol and Drug Abuse Patient Records regulations: The Federal rules restrict any use of the information to criminally investigate or prosecute any alcohol or drug abuse patient.[facility] TownshipIn the event this information is protected by the Federal Confidentiality of Alcohol and Drug Abuse Patient Records regulations: The Federal rules restrict any use of the information to criminally investigate or prosecute any alcohol or drug abuse patient.[facility] TownshipIn the event this information is protected by the Federal Confidentiality of Alcohol and Drug Abuse Patient Records regulations: The Federal rules restrict any use of the information to criminally investigate or prosecute any alcohol or drug abuse patient.[facility] TownshipIn the event this information is protected by the Federal Confidentiality of Alcohol and Drug Abuse Patient Records regulations: The Federal rules restrict any use of the information to criminally investigate or prosecute any alcohol or drug abuse patient.[facility] TownshipIn the event this information is protected by the Federal Confidentiality of Alcohol and Drug Abuse Patient Records regulations: The Federal rules restrict any use of the information to criminally investigate or prosecute any alcohol or drug abuse patient.[facility] TownshipIn the event this information is protected by the Federal Confidentiality of Alcohol and Drug Abuse Patient Records regulations: The Federal rules restrict any use of the information to criminally investigate or prosecute any alcohol or drug abuse patient.[facility] TownshipIn the event this information is protected by the Federal Confidentiality of Alcohol and Drug Abuse Patient Records regulations: The Federal rules restrict any use of the information to criminally investigate or prosecute any alcohol or drug abuse patient.[facility] TownshipIn the event this information is protected by the Federal Confidentiality of Alcohol and Drug Abuse Patient Records regulations: The Federal rules restrict any use of the information to criminally investigate or prosecute any alcohol or drug abuse patient.[facility] TownshipIn the event this information is protected by the Federal Confidentiality of Alcohol and Drug Abuse Patient Records regulations: The Federal rules restrict any use of the information to criminally investigate or prosecute any alcohol or drug abuse patient.[facility] TownshipIn the event this information is protected by the Federal Confidentiality of Alcohol and Drug Abuse Patient Records regulations: The Federal rules restrict any use of the information to criminally investigate or prosecute any alcohol or drug abuse patient.[facility] TownshipIn the event this information is protected by the Federal Confidentiality of Alcohol and Drug Abuse Patient Records regulations: The Federal rules restrict any use of the information to criminally investigate or prosecute any alcohol or drug abuse patient.[facility] TownshipIn the event this information is protected by the Federal Confidentiality of Alcohol and Drug Abuse Patient Records regulations: The Federal rules restrict any use of the information to criminally investigate or prosecute any alcohol or drug abuse patient.[facility] TownshipIn the event this information is protected by the Federal Confidentiality of Alcohol and Drug Abuse Patient Records regulations: The Federal rules restrict any use of the information to criminally investigate or prosecute any alcohol or drug abuse patient.[facility] TownshipIn the event this information is protected by the Federal Confidentiality of Alcohol and Drug Abuse Patient Records regulations: The Federal rules restrict any use of the information to criminally investigate or prosecute any alcohol or drug abuse patient.[facility] TownshipIn the event this information is protected by the Federal Confidentiality of Alcohol and Drug Abuse Patient Records regulations: The Federal rules restrict any use of the information to criminally investigate or prosecute any alcohol or drug abuse patient.[facility] TownshipIn the event this information is protected by the Federal Confidentiality of Alcohol and Drug Abuse Patient Records regulations: The Federal rules restrict any use of the information to criminally investigate or prosecute any alcohol or drug abuse patient.[facility] TownshipIn the event this information is protected by the Federal Confidentiality of Alcohol and Drug Abuse Patient Records regulations: The Federal rules restrict any use of the information to criminally investigate or prosecute any alcohol or drug abuse patient.[facility] TownshipIn the event this information is protected by the Federal Confidentiality of Alcohol and Drug Abuse Patient Records regulations: The Federal rules restrict any use of the information to criminally investigate or prosecute any alcohol or drug abuse patient.[facility] TownshipIn the event this information is protected by the Federal Confidentiality of Alcohol and Drug Abuse Patient Records regulations: The Federal rules restrict any use of the information to criminally investigate or prosecute any alcohol or drug abuse patient.[facility] TownshipIn the event this information is protected by the Federal Confidentiality of Alcohol and Drug Abuse Patient Records regulations: The Federal rules restrict any use of the information to criminally investigate or prosecute any alcohol or drug abuse patient.[facility] TownshipIn the event this information is protected by the Federal Confidentiality of Alcohol and Drug Abuse Patient Records regulations: The Federal rules restrict any use of the information to criminally investigate or prosecute any alcohol or drug abuse patient.[facility] TownshipIn the event this information is protected by the Federal Confidentiality of Alcohol and Drug Abuse Patient Records regulations: The Federal rules restrict any use of the information to criminally investigate or prosecute any alcohol or drug abuse patient.[facility] TownshipIn the event this information is protected by the Federal Confidentiality of Alcohol and Drug Abuse Patient Records regulations: The Federal rules restrict any use of the information to criminally investigate or prosecute any alcohol or drug abuse patient.[facility] TownshipIn the event this information is protected by the Federal Confidentiality of Alcohol and Drug Abuse Patient Records regulations: The Federal rules restrict any use of the information to criminally investigate or prosecute any alcohol or drug abuse patient.[facility] TownshipIn the event this information is protected by the Federal Confidentiality of Alcohol and Drug Abuse Patient Records regulations: The Federal rules restrict any use of the information to criminally investigate or prosecute any alcohol or drug abuse patient.[facility] TownshipIn the event this information is protected by the Federal Confidentiality of Alcohol and Drug Abuse Patient Records regulations: The Federal rules restrict any use of the information to criminally investigate or prosecute any alcohol or drug abuse patient.[facility] TownshipIn the event this information is protected by the Federal Confidentiality of Alcohol and Drug Abuse Patient Records regulations: The Federal rules restrict any use of the information to criminally investigate or prosecute any alcohol or drug abuse patient.[facility] TownshipIn the event this information is protected by the Federal Confidentiality of Alcohol and Drug Abuse Patient Records regulations: The Federal rules restrict any use of the information to criminally investigate or prosecute any alcohol or drug abuse patient.[facility] TownshipIn the event this information is protected by the Federal Confidentiality of Alcohol and Drug Abuse Patient Records regulations: The Federal rules restrict any use of the information to criminally investigate or prosecute any alcohol or drug abuse patient.[facility] TownshipIn the event this information is protected by the Federal Confidentiality of Alcohol and Drug Abuse Patient Records regulations: The Federal rules restrict any use of the information to criminally investigate or prosecute any alcohol or drug abuse patient.[facility] TownshipIn the event this information is protected by the Federal Confidentiality of Alcohol and Drug Abuse Patient Records regulations: The Federal rules restrict any use of the information to criminally investigate or prosecute any alcohol or drug abuse patient.[facility] TownshipIn the event this information is protected by the Federal Confidentiality of Alcohol and Drug Abuse Patient Records regulations: The Federal rules restrict any use of the information to criminally investigate or prosecute any alcohol or drug abuse patient.[facility] TownshipIn the event this information is protected by the Federal Confidentiality of Alcohol and Drug Abuse Patient Records regulations: The Federal rules restrict any use of the information to criminally investigate or prosecute any alcohol or drug abuse patient.[facility] TownshipIn the event this information is protected by the Federal Confidentiality of Alcohol and Drug Abuse Patient Records regulations: The Federal rules restrict any use of the information to criminally investigate or prosecute any alcohol or drug abuse patient.[facility] TownshipIn the event this information is protected by the Federal Confidentiality of Alcohol and Drug Abuse Patient Records regulations: The Federal rules restrict any use of the information to criminally investigate or prosecute any alcohol or drug abuse patient.[facility] TownshipIn the event this information is protected by the Federal Confidentiality of Alcohol and Drug Abuse Patient Records regulations: The Federal rules restrict any use of the information to criminally investigate or prosecute any alcohol or drug abuse patient.[facility] TownshipIn the event this information is protected by the Federal Confidentiality of Alcohol and Drug Abuse Patient Records regulations: The Federal rules restrict any use of the information to criminally investigate or prosecute any alcohol or drug abuse patient.[facility] TownshipIn the event this information is protected by the Federal Confidentiality of Alcohol and Drug Abuse Patient Records regulations: The Federal rules restrict any use of the information to criminally investigate or prosecute any alcohol or drug abuse patient.[facility] TownshipIn the event this information is protected by the Federal Confidentiality of Alcohol and Drug Abuse Patient Records regulations: The Federal rules restrict any use of the information to criminally investigate or prosecute any alcohol or drug abuse patient.[facility] TownshipIn the event this information is protected by the Federal Confidentiality of Alcohol and Drug Abuse Patient Records regulations: The Federal rules restrict any use of the information to criminally investigate or prosecute any alcohol or drug abuse patient.[facility] TownshipIn the event this information is protected by the Federal Confidentiality of Alcohol and Drug Abuse Patient Records regulations: The Federal rules restrict any use of the information to criminally investigate or prosecute any alcohol or drug abuse patient.[facility] TownshipIn the event this information is protected by the Federal Confidentiality of Alcohol and Drug Abuse Patient Records regulations: The Federal rules restrict any use of the information to criminally investigate or prosecute any alcohol or drug abuse patient.[facility] TownshipIn the event this information is protected by the Federal Confidentiality of Alcohol and Drug Abuse Patient Records regulations: The Federal rules restrict any use of the information to criminally investigate or prosecute any alcohol or drug abuse patient.[facility] TownshipIn the event this information is protected by the Federal Confidentiality of Alcohol and Drug Abuse Patient Records regulations: The Federal rules restrict any use of the information to criminally investigate or prosecute any alcohol or drug abuse patient.[facility] TownshipIn the event this information is protected by the Federal Confidentiality of Alcohol and Drug Abuse Patient Records regulations: The Federal rules restrict any use of the information to criminally investigate or prosecute any alcohol or drug abuse patient.[facility] TownshipIn the event this information is protected by the Federal Confidentiality of Alcohol and Drug Abuse Patient Records regulations: The Federal rules restrict any use of the information to criminally investigate or prosecute any alcohol or drug abuse patient.[facility] TownshipIn the event this information is protected by the Federal Confidentiality of Alcohol and Drug Abuse Patient Records regulations: The Federal rules restrict any use of the information to criminally investigate or prosecute any alcohol or drug abuse patient.[facility] TownshipIn the event this information is protected by the Federal Confidentiality of Alcohol and Drug Abuse Patient Records regulations: The Federal rules restrict any use of the information to criminally investigate or prosecute any alcohol or drug abuse patient.[facility] TownshipIn the event this information is protected by the Federal Confidentiality of Alcohol and Drug Abuse Patient Records regulations: The Federal rules restrict any use of the information to criminally investigate or prosecute any alcohol or drug abuse patient.[facility] TownshipIn the event this information is protected by the Federal Confidentiality of Alcohol and Drug Abuse Patient Records regulations: The Federal rules restrict any use of the information to criminally investigate or prosecute any alcohol or drug abuse patient.[facility] TownshipIn the event this information is protected by the Federal Confidentiality of Alcohol and Drug Abuse Patient Records regulations: The Federal rules restrict any use of the information to criminally investigate or prosecute any alcohol or drug abuse patient.[facility] TownshipIn the event this information is protected by the Federal Confidentiality of Alcohol and Drug Abuse Patient Records regulations: The Federal rules restrict any use of the information to criminally investigate or prosecute any alcohol or drug abuse patient.[facility] TownshipIn the event this information is protected by the Federal Confidentiality of Alcohol and Drug Abuse Patient Records regulations: The Federal rules restrict any use of the information to criminally investigate or prosecute any alcohol or drug abuse patient.[facility] TownshipIn the event this information is protected by the Federal Confidentiality of Alcohol and Drug Abuse Patient Records regulations: The Federal rules restrict any use of the information to criminally investigate or prosecute any alcohol or drug abuse patient.[facility] TownshipIn the event this information is protected by the Federal Confidentiality of Alcohol and Drug Abuse Patient Records regulations: The Federal rules restrict any use of the information to criminally investigate or prosecute any alcohol or drug abuse patient.[facility] TownshipIn the event this information is protected by the Federal Confidentiality of Alcohol and Drug Abuse Patient Records regulations: The Federal rules restrict any use of the information to criminally investigate or prosecute any alcohol or drug abuse patient.[facility] TownshipIn the event this information is protected by the Federal Confidentiality of Alcohol and Drug Abuse Patient Records regulations: The Federal rules restrict any use of the information to criminally investigate or prosecute any alcohol or drug abuse patient.[facility] TownshipIn the event this information is protected by the Federal Confidentiality of Alcohol and Drug Abuse Patient Records regulations: The Federal rules restrict any use of the information to criminally investigate or prosecute any alcohol or drug abuse patient.[facility] TownshipIn the event this information is protected by the Federal Confidentiality of Alcohol and Drug Abuse Patient Records regulations: The Federal rules restrict any use of the information to criminally investigate or prosecute any alcohol or drug abuse patient.[facility] TownshipIn the event this information is protected by the Federal Confidentiality of Alcohol and Drug Abuse Patient Records regulations: The Federal rules restrict any use of the information to criminally investigate or prosecute any alcohol or drug abuse patient.[facility] TownshipIn the event this information is protected by the Federal Confidentiality of Alcohol and Drug Abuse Patient Records regulations: The Federal rules restrict any use of the information to criminally investigate or prosecute any alcohol or drug abuse patient.[facility] TownshipIn the event this information is protected by the Federal Confidentiality of Alcohol and Drug Abuse Patient Records regulations: The Federal rules restrict any use of the information to criminally investigate or prosecute any alcohol or drug abuse patient.[facility] TownshipIn the event this information is protected by the Federal Confidentiality of Alcohol and Drug Abuse Patient Records regulations: The Federal rules restrict any use of the information to criminally investigate or prosecute any alcohol or drug abuse patient.[facility] TownshipIn the event this information is protected by the Federal Confidentiality of Alcohol and Drug Abuse Patient Records regulations: The Federal rules restrict any use of the information to criminally investigate or prosecute any alcohol or drug abuse patient.[facility] TownshipIn the event this information is protected by the Federal Confidentiality of Alcohol and Drug Abuse Patient Records regulations: The Federal rules restrict any use of the information to criminally investigate or prosecute any alcohol or drug abuse patient.[facility] TownshipIn the event this information is protected by the Federal Confidentiality of Alcohol and Drug Abuse Patient Records regulations: The Federal rules restrict any use of the information to criminally investigate or prosecute any alcohol or drug abuse patient.[facility] TownshipIn the event this information is protected by the Federal Confidentiality of Alcohol and Drug Abuse Patient Records regulations: The Federal rules restrict any use of the information to criminally investigate or prosecute any alcohol or drug abuse patient.[facility] TownshipIn the event this information is protected by the Federal Confidentiality of Alcohol and Drug Abuse Patient Records regulations: The Federal rules restrict any use of the information to criminally investigate or prosecute any alcohol or drug abuse patient.[facility] TownshipIn the event this information is protected by the Federal Confidentiality of Alcohol and Drug Abuse Patient Records regulations: The Federal rules restrict any use of the information to criminally investigate or prosecute any alcohol or drug abuse patient.[facility] TownshipIn the event this information is protected by the Federal Confidentiality of Alcohol and Drug Abuse Patient Records regulations: The Federal rules restrict any use of the information to criminally investigate or prosecute any alcohol or drug abuse patient.[facility] TownshipIn the event this information is protected by the Federal Confidentiality of Alcohol and Drug Abuse Patient Records regulations: The Federal rules restrict any use of the information to criminally investigate or prosecute any alcohol or drug abuse patient.[facility] TownshipIn the event this information is protected by the Federal Confidentiality of Alcohol and Drug Abuse Patient Records regulations: The Federal rules restrict any use of the information to criminally investigate or prosecute any alcohol or drug abuse patient.[facility] TownshipIn the event this information is protected by the Federal Confidentiality of Alcohol and Drug Abuse Patient Records regulations: The Federal rules restrict any use of the information to criminally investigate or prosecute any alcohol or drug abuse patient.[facility] TownshipIn the event this information is protected by the Federal Confidentiality of Alcohol and Drug Abuse Patient Records regulations: The Federal rules restrict any use of the information to criminally investigate or prosecute any alcohol or drug abuse patient.[facility] TownshipIn the event this information is protected by the Federal Confidentiality of Alcohol and Drug Abuse Patient Records regulations: The Federal rules restrict any use of the information to criminally investigate or prosecute any alcohol or drug abuse patient.[facility] TownshipIn the event this information is protected by the Federal Confidentiality of Alcohol and Drug Abuse Patient Records regulations: The Federal rules restrict any use of the information to criminally investigate or prosecute any alcohol or drug abuse patient.[facility] TownshipIn the event this information is protected by the Federal Confidentiality of Alcohol and Drug Abuse Patient Records regulations: The Federal rules restrict any use of the information to criminally investigate or prosecute any alcohol or drug abuse patient.[facility] TownshipIn the event this information is protected by the Federal Confidentiality of Alcohol and Drug Abuse Patient Records regulations: The Federal rules restrict any use of the information to criminally investigate or prosecute any alcohol or drug abuse patient.[facility] TownshipIn the event this information is protected by the Federal Confidentiality of Alcohol and Drug Abuse Patient Records regulations: The Federal rules restrict any use of the information to criminally investigate or prosecute any alcohol or drug abuse patient.[facility] TownshipIn the event this information is protected by the Federal Confidentiality of Alcohol and Drug Abuse Patient Records regulations: The Federal rules restrict any use of the information to criminally investigate or prosecute any alcohol or drug abuse patient.[facility] TownshipIn the event this information is protected by the Federal Confidentiality of Alcohol and Drug Abuse Patient Records regulations: The Federal rules restrict any use of the information to criminally investigate or prosecute any alcohol or drug abuse patient.[facility] TownshipIn the event this information is protected by the Federal Confidentiality of Alcohol and Drug Abuse Patient Records regulations: The Federal rules restrict any use of the information to criminally investigate or prosecute any alcohol or drug abuse patient.[facility] TownshipIn the event this information is protected by the Federal Confidentiality of Alcohol and Drug Abuse Patient Records regulations: The Federal rules restrict any use of the information to criminally investigate or prosecute any alcohol or drug abuse patient.[facility] TownshipIn the event this information is protected by the Federal Confidentiality of Alcohol and Drug Abuse Patient Records regulations: The Federal rules restrict any use of the information to criminally investigate or prosecute any alcohol or drug abuse patient.[facility] TownshipIn the event this information is protected by the Federal Confidentiality of Alcohol and Drug Abuse Patient Records regulations: The Federal rules restrict any use of the information to criminally investigate or prosecute any alcohol or drug abuse patient.[facility] TownshipIn the event this information is protected by the Federal Confidentiality of Alcohol and Drug Abuse Patient Records regulations: The Federal rules restrict any use of the information to criminally investigate or prosecute any alcohol or drug abuse patient.[facility] TownshipIn the event this information is protected by the Federal Confidentiality of Alcohol and Drug Abuse Patient Records regulations: The Federal rules restrict any use of the information to criminally investigate or prosecute any alcohol or drug abuse patient.[facility] TownshipIn the event this information is protected by the Federal Confidentiality of Alcohol and Drug Abuse Patient Records regulations: The Federal rules restrict any use of the information to criminally investigate or prosecute any alcohol or drug abuse patient.[facility] TownshipIn the event this information is protected by the Federal Confidentiality of Alcohol and Drug Abuse Patient Records regulations: The Federal rules restrict any use of the information to criminally investigate or prosecute any alcohol or drug abuse patient.[facility] TownshipIn the event this information is protected by the Federal Confidentiality of Alcohol and Drug Abuse Patient Records regulations: The Federal rules restrict any use of the information to criminally investigate or prosecute any alcohol or drug abuse patient.[facility] TownshipIn the event this information is protected by the Federal Confidentiality of Alcohol and Drug Abuse Patient Records regulations: The Federal rules restrict any use of the information to criminally investigate or prosecute any alcohol or drug abuse patient.[facility] TownshipIn the event this information is protected by the Federal Confidentiality of Alcohol and Drug Abuse Patient Records regulations: The Federal rules restrict any use of the information to criminally investigate or prosecute any alcohol or drug abuse patient.[facility] TownshipIn the event this information is protected by the Federal Confidentiality of Alcohol and Drug Abuse Patient Records regulations: The Federal rules restrict any use of the information to criminally investigate or prosecute any alcohol or drug abuse patient.[facility] TownshipIn the event this information is protected by the Federal Confidentiality of Alcohol and Drug Abuse Patient Records regulations: The Federal rules restrict any use of the information to criminally investigate or prosecute any alcohol or drug abuse patient.[facility] TownshipIn the event this information is protected by the Federal Confidentiality of Alcohol and Drug Abuse Patient Records regulations: The Federal rules restrict any use of the information to criminally investigate or prosecute any alcohol or drug abuse patient.[facility] TownshipIn the event this information is protected by the Federal Confidentiality of Alcohol and Drug Abuse Patient Records regulations: The Federal rules restrict any use of the information to criminally investigate or prosecute any alcohol or drug abuse patient.[facility] TownshipIn the event this information is protected by the Federal Confidentiality of Alcohol and Drug Abuse Patient Records regulations: The Federal rules restrict any use of the information to criminally investigate or prosecute any alcohol or drug abuse patient.[facility] TownshipIn the event this information is protected by the Federal Confidentiality of Alcohol and Drug Abuse Patient Records regulations: The Federal rules restrict any use of the information to criminally investigate or prosecute any alcohol or drug abuse patient.[facility] TownshipIn the event this information is protected by the Federal Confidentiality of Alcohol and Drug Abuse Patient Records regulations: The Federal rules restrict any use of the information to criminally investigate or prosecute any alcohol or drug abuse patient.[facility] TownshipIn the event this information is protected by the Federal Confidentiality of Alcohol and Drug Abuse Patient Records regulations: The Federal rules restrict any use of the information to criminally investigate or prosecute any alcohol or drug abuse patient.[facility] TownshipIn the event this information is protected by the Federal Confidentiality of Alcohol and Drug Abuse Patient Records regulations: The Federal rules restrict any use of the information to criminally investigate or prosecute any alcohol or drug abuse patient.[facility] TownshipIn the event this information is protected by the Federal Confidentiality of Alcohol and Drug Abuse Patient Records regulations: The Federal rules restrict any use of the information to criminally investigate or prosecute any alcohol or drug abuse patient.[facility] TownshipIn the event this information is protected by the Federal Confidentiality of Alcohol and Drug Abuse Patient Records regulations: The Federal rules restrict any use of the information to criminally investigate or prosecute any alcohol or drug abuse patient.[facility] TownshipIn the event this information is protected by the Federal Confidentiality of Alcohol and Drug Abuse Patient Records regulations: The Federal rules restrict any use of the information to criminally investigate or prosecute any alcohol or drug abuse patient.[facility] TownshipIn the event this information is protected by the Federal Confidentiality of Alcohol and Drug Abuse Patient Records regulations: The Federal rules restrict any use of the information to criminally investigate or prosecute any alcohol or drug abuse patient.[facility] TownshipIn the event this information is protected by the Federal Confidentiality of Alcohol and Drug Abuse Patient Records regulations: The Federal rules restrict any use of the information to criminally investigate or prosecute any alcohol or drug abuse patient.[facility] TownshipIn the event this information is protected by the Federal Confidentiality of Alcohol and Drug Abuse Patient Records regulations: The Federal rules restrict any use of the information to criminally investigate or prosecute any alcohol or drug abuse patient.[facility] TownshipIn the event this information is protected by the Federal Confidentiality of Alcohol and Drug Abuse Patient Records regulations: The Federal rules restrict any use of the information to criminally investigate or prosecute any alcohol or drug abuse patient.[facility] TownshipIn the event this information is protected by the Federal Confidentiality of Alcohol and Drug Abuse Patient Records regulations: The Federal rules restrict any use of the information to criminally investigate or prosecute any alcohol or drug abuse patient.[facility] TownshipIn the event this information is protected by the Federal Confidentiality of Alcohol and Drug Abuse Patient Records regulations: The Federal rules restrict any use of the information to criminally investigate or prosecute any alcohol or drug abuse patient.[facility] TownshipIn the event this information is protected by the Federal Confidentiality of Alcohol and Drug Abuse Patient Records regulations: The Federal rules restrict any use of the information to criminally investigate or prosecute any alcohol or drug abuse patient.[facility] TownshipIn the event this information is protected by the Federal Confidentiality of Alcohol and Drug Abuse Patient Records regulations: The Federal rules restrict any use of the information to criminally investigate or prosecute any alcohol or drug abuse patient.[facility] TownshipIn the event this information is protected by the Federal Confidentiality of Alcohol and Drug Abuse Patient Records regulations: The Federal rules restrict any use of the information to criminally investigate or prosecute any alcohol or drug abuse patient.[facility] TownshipIn the event this information is protected by the Federal Confidentiality of Alcohol and Drug Abuse Patient Records regulations: The Federal rules restrict any use of the information to criminally investigate or prosecute any alcohol or drug abuse patient.[facility] TownshipIn the event this information is protected by the Federal Confidentiality of Alcohol and Drug Abuse Patient Records regulations: The Federal rules restrict any use of the information to criminally investigate or prosecute any alcohol or drug abuse patient.[facility] TownshipIn the event this information is protected by the Federal Confidentiality of Alcohol and Drug Abuse Patient Records regulations: The Federal rules restrict any use of the information to criminally investigate or prosecute any alcohol or drug abuse patient.[facility] TownshipIn the event this information is protected by the Federal Confidentiality of Alcohol and Drug Abuse Patient Records regulations: The Federal rules restrict any use of the information to criminally investigate or prosecute any alcohol or drug abuse patient.[facility] TownshipIn the event this information is protected by the Federal Confidentiality of Alcohol and Drug Abuse Patient Records regulations: The Federal rules restrict any use of the information to criminally investigate or prosecute any alcohol or drug abuse patient.[facility] TownshipIn the event this information is protected by the Federal Confidentiality of Alcohol and Drug Abuse Patient Records regulations: The Federal rules restrict any use of the information to criminally investigate or prosecute any alcohol or drug abuse patient.[facility] TownshipIn the event this information is protected by the Federal Confidentiality of Alcohol and Drug Abuse Patient Records regulations: The Federal rules restrict any use of the information to criminally investigate or prosecute any alcohol or drug abuse patient.[facility] TownshipIn the event this information is protected by the Federal Confidentiality of Alcohol and Drug Abuse Patient Records regulations: The Federal rules restrict any use of the information to criminally investigate or prosecute any alcohol or drug abuse patient.[facility] TownshipIn the event this information is protected by the Federal Confidentiality of Alcohol and Drug Abuse Patient Records regulations: The Federal rules restrict any use of the information to criminally investigate or prosecute any alcohol or drug abuse patient.[facility] TownshipIn the event this information is protected by the Federal Confidentiality of Alcohol and Drug Abuse Patient Records regulations: The Federal rules restrict any use of the information to criminally investigate or prosecute any alcohol or drug abuse patient.[facility] TownshipIn the event this information is protected by the Federal Confidentiality of Alcohol and Drug Abuse Patient Records regulations: The Federal rules restrict any use of the information to criminally investigate or prosecute any alcohol or drug abuse patient.[facility] TownshipIn the event this information is protected by the Federal Confidentiality of Alcohol and Drug Abuse Patient Records regulations: The Federal rules restrict any use of the information to criminally investigate or prosecute any alcohol or drug abuse patient.[facility] TownshipIn the event this information is protected by the Federal Confidentiality of Alcohol and Drug Abuse Patient Records regulations: The Federal rules restrict any use of the information to criminally investigate or prosecute any alcohol or drug abuse patient.[facility] TownshipIn the event this information is protected by the Federal Confidentiality of Alcohol and Drug Abuse Patient Records regulations: The Federal rules restrict any use of the information to criminally investigate or prosecute any alcohol or drug abuse patient.[facility] TownshipIn the event this information is protected by the Federal Confidentiality of Alcohol and Drug Abuse Patient Records regulations: The Federal rules restrict any use of the information to criminally investigate or prosecute any alcohol or drug abuse patient.[facility] TownshipIn the event this information is protected by the Federal Confidentiality of Alcohol and Drug Abuse Patient Records regulations: The Federal rules restrict any use of the information to criminally investigate or prosecute any alcohol or drug abuse patient.[facility] TownshipIn the event this information is protected by the Federal Confidentiality of Alcohol and Drug Abuse Patient Records regulations: The Federal rules restrict any use of the information to criminally investigate or prosecute any alcohol or drug abuse patient.[facility] TownshipIn the event this information is protected by the Federal Confidentiality of Alcohol and Drug Abuse Patient Records regulations: The Federal rules restrict any use of the information to criminally investigate or prosecute any alcohol or drug abuse patient.[facility] TownshipIn the event this information is protected by the Federal Confidentiality of Alcohol and Drug Abuse Patient Records regulations: The Federal rules restrict any use of the information to criminally investigate or prosecute any alcohol or drug abuse patient.[facility] TownshipIn the event this information is protected by the Federal Confidentiality of Alcohol and Drug Abuse Patient Records regulations: The Federal rules restrict any use of the information to criminally investigate or prosecute any alcohol or drug abuse patient.[facility] TownshipIn the event this information is protected by the Federal Confidentiality of Alcohol and Drug Abuse Patient Records regulations: The Federal rules restrict any use of the information to criminally investigate or prosecute any alcohol or drug abuse patient.[facility] TownshipIn the event this information is protected by the Federal Confidentiality of Alcohol and Drug Abuse Patient Records regulations: The Federal rules restrict any use of the information to criminally investigate or prosecute any alcohol or drug abuse patient.[facility] TownshipIn the event this information is protected by the Federal Confidentiality of Alcohol and Drug Abuse Patient Records regulations: The Federal rules restrict any use of the information to criminally investigate or prosecute any alcohol or drug abuse patient.[facility] TownshipIn the event this information is protected by the Federal Confidentiality of Alcohol and Drug Abuse Patient Records regulations: The Federal rules restrict any use of the information to criminally investigate or prosecute any alcohol or drug abuse patient.[facility] TownshipIn the event this information is protected by the Federal Confidentiality of Alcohol and Drug Abuse Patient Records regulations: The Federal rules restrict any use of the information to criminally investigate or prosecute any alcohol or drug abuse patient.[facility] TownshipIn the event this information is protected by the Federal Confidentiality of Alcohol and Drug Abuse Patient Records regulations: The Federal rules restrict any use of the information to criminally investigate or prosecute any alcohol or drug abuse patient.[facility] TownshipIn the event this information is protected by the Federal Confidentiality of Alcohol and Drug Abuse Patient Records regulations: The Federal rules restrict any use of the information to criminally investigate or prosecute any alcohol or drug abuse patient.[facility] TownshipIn the event this information is protected by the Federal Confidentiality of Alcohol and Drug Abuse Patient Records regulations: The Federal rules restrict any use of the information to criminally investigate or prosecute any alcohol or drug abuse patient.[facility] TownshipIn the event this information is protected by the Federal Confidentiality of Alcohol and Drug Abuse Patient Records regulations: The Federal rules restrict any use of the information to criminally investigate or prosecute any alcohol or drug abuse patient.[facility] TownshipIn the event this information is protected by the Federal Confidentiality of Alcohol and Drug Abuse Patient Records regulations: The Federal rules restrict any use of the information to criminally investigate or prosecute any alcohol or drug abuse patient.[facility] TownshipIn the event this information is protected by the Federal Confidentiality of Alcohol and Drug Abuse Patient Records regulations: The Federal rules restrict any use of the information to criminally investigate or prosecute any alcohol or drug abuse patient.[facility] TownshipIn the event this information is protected by the Federal Confidentiality of Alcohol and Drug Abuse Patient Records regulations: The Federal rules restrict any use of the information to criminally investigate or prosecute any alcohol or drug abuse patient.[facility] TownshipIn the event this information is protected by the Federal Confidentiality of Alcohol and Drug Abuse Patient Records regulations: The Federal rules restrict any use of the information to criminally investigate or prosecute any alcohol or drug abuse patient.[facility] TownshipIn the event this information is protected by the Federal Confidentiality of Alcohol and Drug Abuse Patient Records regulations: The Federal rules restrict any use of the information to criminally investigate or prosecute any alcohol or drug abuse patient.[facility] TownshipIn the event this information is protected by the Federal Confidentiality of Alcohol and Drug Abuse Patient Records regulations: The Federal rules restrict any use of the information to criminally investigate or prosecute any alcohol or drug abuse patient.[facility] TownshipIn the event this information is protected by the Federal Confidentiality of Alcohol and Drug Abuse Patient Records regulations: The Federal rules restrict any use of the information to criminally investigate or prosecute any alcohol or drug abuse patient.[facility] TownshipIn the event this information is protected by the Federal Confidentiality of Alcohol and Drug Abuse Patient Records regulations: The Federal rules restrict any use of the information to criminally investigate or prosecute any alcohol or drug abuse patient.[facility] TownshipIn the event this information is protected by the Federal Confidentiality of Alcohol and Drug Abuse Patient Records regulations: The Federal rules restrict any use of the information to criminally investigate or prosecute any alcohol or drug abuse patient.[facility] TownshipIn the event this information is protected by the Federal Confidentiality of Alcohol and Drug Abuse Patient Records regulations: The Federal rules restrict any use of the information to criminally investigate or prosecute any alcohol or drug abuse patient.[facility] TownshipIn the event this information is protected by the Federal Confidentiality of Alcohol and Drug Abuse Patient Records regulations: The Federal rules restrict any use of the information to criminally investigate or prosecute any alcohol or drug abuse patient.[facility] TownshipIn the event this information is protected by the Federal Confidentiality of Alcohol and Drug Abuse Patient Records regulations: The Federal rules restrict any use of the information to criminally investigate or prosecute any alcohol or drug abuse patient.[facility] TownshipIn the event this information is protected by the Federal Confidentiality of Alcohol and Drug Abuse Patient Records regulations: The Federal rules restrict any use of the information to criminally investigate or prosecute any alcohol or drug abuse patient.[facility] TownshipIn the event this information is protected by the Federal Confidentiality of Alcohol and Drug Abuse Patient Records regulations: The Federal rules restrict any use of the information to criminally investigate or prosecute any alcohol or drug abuse patient.[facility] TownshipIn the event this information is protected by the Federal Confidentiality of Alcohol and Drug Abuse Patient Records regulations: The Federal rules restrict any use of the information to criminally investigate or prosecute any alcohol or drug abuse patient.[facility] TownshipIn the event this information is protected by the Federal Confidentiality of Alcohol and Drug Abuse Patient Records regulations: The Federal rules restrict any use of the information to criminally investigate or prosecute any alcohol or drug abuse patient.[facility] TownshipIn the event this information is protected by the Federal Confidentiality of Alcohol and Drug Abuse Patient Records regulations: The Federal rules restrict any use of the information to criminally investigate or prosecute any alcohol or drug abuse patient.[facility] TownshipIn the event this information is protected by the Federal Confidentiality of Alcohol and Drug Abuse Patient Records regulations: The Federal rules restrict any use of the information to criminally investigate or prosecute any alcohol or drug abuse patient.[facility] TownshipIn the event this information is protected by the Federal Confidentiality of Alcohol and Drug Abuse Patient Records regulations: The Federal rules restrict any use of the information to criminally investigate or prosecute any alcohol or drug abuse patient.[facility] TownshipIn the event this information is protected by the Federal Confidentiality of Alcohol and Drug Abuse Patient Records regulations: The Federal rules restrict any use of the information to criminally investigate or prosecute any alcohol or drug abuse patient.[facility] TownshipIn the event this information is protected by the Federal Confidentiality of Alcohol and Drug Abuse Patient Records regulations: The Federal rules restrict any use of the information to criminally investigate or prosecute any alcohol or drug abuse patient.[facility] TownshipIn the event this information is protected by the Federal Confidentiality of Alcohol and Drug Abuse Patient Records regulations: The Federal rules restrict any use of the information to criminally investigate or prosecute any alcohol or drug abuse patient.[facility] TownshipIn the event this information is protected by the Federal Confidentiality of Alcohol and Drug Abuse Patient Records regulations: The Federal rules restrict any use of the information to criminally investigate or prosecute any alcohol or drug abuse patient.[facility] TownshipIn the event this information is protected by the Federal Confidentiality of Alcohol and Drug Abuse Patient Records regulations: The Federal rules restrict any use of the information to criminally investigate or prosecute any alcohol or drug abuse patient.[facility] TownshipIn the event this information is protected by the Federal Confidentiality of Alcohol and Drug Abuse Patient Records regulations: The Federal rules restrict any use of the information to criminally investigate or prosecute any alcohol or drug abuse patient.[facility] TownshipIn the event this information is protected by the Federal Confidentiality of Alcohol and Drug Abuse Patient Records regulations: The Federal rules restrict any use of the information to criminally investigate or prosecute any alcohol or drug abuse patient.[facility] TownshipIn the event this information is protected by the Federal Confidentiality of Alcohol and Drug Abuse Patient Records regulations: The Federal rules restrict any use of the information to criminally investigate or prosecute any alcohol or drug abuse patient.[facility] TownshipIn the event this information is protected by the Federal Confidentiality of Alcohol and Drug Abuse Patient Records regulations: The Federal rules restrict any use of the information to criminally investigate or prosecute any alcohol or drug abuse patient.[facility] TownshipIn the event this information is protected by the Federal Confidentiality of Alcohol and Drug Abuse Patient Records regulations: The Federal rules restrict any use of the information to criminally investigate or prosecute any alcohol or drug abuse patient.[facility] TownshipIn the event this information is protected by the Federal Confidentiality of Alcohol and Drug Abuse Patient Records regulations: The Federal rules restrict any use of the information to criminally investigate or prosecute any alcohol or drug abuse patient.[facility] TownshipIn the event this information is protected by the Federal Confidentiality of Alcohol and Drug Abuse Patient Records regulations: The Federal rules restrict any use of the information to criminally investigate or prosecute any alcohol or drug abuse patient.[facility] TownshipIn the event this information is protected by the Federal Confidentiality of Alcohol and Drug Abuse Patient Records regulations: The Federal rules restrict any use of the information to criminally investigate or prosecute any alcohol or drug abuse patient.[facility] TownshipIn the event this information is protected by the Federal Confidentiality of Alcohol and Drug Abuse Patient Records regulations: The Federal rules restrict any use of the information to criminally investigate or prosecute any alcohol or drug abuse patient.[facility] TownshipIn the event this information is protected by the Federal Confidentiality of Alcohol and Drug Abuse Patient Records regulations: The Federal rules restrict any use of the information to criminally investigate or prosecute any alcohol or drug abuse patient.[facility] TownshipIn the event this information is protected by the Federal Confidentiality of Alcohol and Drug Abuse Patient Records regulations: The Federal rules restrict any use of the information to criminally investigate or prosecute any alcohol or drug abuse patient.[facility] TownshipIn the event this information is protected by the Federal Confidentiality of Alcohol and Drug Abuse Patient Records regulations: The Federal rules restrict any use of the information to criminally investigate or prosecute any alcohol or drug abuse patient.[facility] TownshipIn the event this information is protected by the Federal Confidentiality of Alcohol and Drug Abuse Patient Records regulations: The Federal rules restrict any use of the information to criminally investigate or prosecute any alcohol or drug abuse patient.[facility] TownshipIn the event this information is protected by the Federal Confidentiality of Alcohol and Drug Abuse Patient Records regulations: The Federal rules restrict any use of the information to criminally investigate or prosecute any alcohol or drug abuse patient.[facility] TownshipIn the event this information is protected by the Federal Confidentiality of Alcohol and Drug Abuse Patient Records regulations: The Federal rules restrict any use of the information to criminally investigate or prosecute any alcohol or drug abuse patient.[facility] TownshipIn the event this information is protected by the Federal Confidentiality of Alcohol and Drug Abuse Patient Records regulations: The Federal rules restrict any use of the information to criminally investigate or prosecute any alcohol or drug abuse patient.[facility] TownshipIn the event this information is protected by the Federal Confidentiality of Alcohol and Drug Abuse Patient Records regulations: The Federal rules restrict any use of the information to criminally investigate or prosecute any alcohol or drug abuse patient.[facility] TownshipIn the event this information is protected by the Federal Confidentiality of Alcohol and Drug Abuse Patient Records regulations: The Federal rules restrict any use of the information to criminally investigate or prosecute any alcohol or drug abuse patient.[facility] TownshipIn the event this information is protected by the Federal Confidentiality of Alcohol and Drug Abuse Patient Records regulations: The Federal rules restrict any use of the information to criminally investigate or prosecute any alcohol or drug abuse patient.[facility] TownshipIn the event this information is protected by the Federal Confidentiality of Alcohol and Drug Abuse Patient Records regulations: The Federal rules restrict any use of the information to criminally investigate or prosecute any alcohol or drug abuse patient.[facility] TownshipIn the event this information is protected by the Federal Confidentiality of Alcohol and Drug Abuse Patient Records regulations: The Federal rules restrict any use of the information to criminally investigate or prosecute any alcohol or drug abuse patient.[facility] TownshipIn the event this information is protected by the Federal Confidentiality of Alcohol and Drug Abuse Patient Records regulations: The Federal rules restrict any use of the information to criminally investigate or prosecute any alcohol or drug abuse patient.[facility] TownshipIn the event this information is protected by the Federal Confidentiality of Alcohol and Drug Abuse Patient Records regulations: The Federal rules restrict any use of the information to criminally investigate or prosecute any alcohol or drug abuse patient.[facility] TownshipIn the event this information is protected by the Federal Confidentiality of Alcohol and Drug Abuse Patient Records regulations: The Federal rules restrict any use of the information to criminally investigate or prosecute any alcohol or drug abuse patient.[facility] TownshipIn the event this information is protected by the Federal Confidentiality of Alcohol and Drug Abuse Patient Records regulations: The Federal rules restrict any use of the information to criminally investigate or prosecute any alcohol or drug abuse patient.[facility] TownshipIn the event this information is protected by the Federal Confidentiality of Alcohol and Drug Abuse Patient Records regulations: The Federal rules restrict any use of the information to criminally investigate or prosecute any alcohol or drug abuse patient.[facility] TownshipIn the event this information is protected by the Federal Confidentiality of Alcohol and Drug Abuse Patient Records regulations: The Federal rules restrict any use of the information to criminally investigate or prosecute any alcohol or drug abuse patient.[facility] TownshipIn the event this information is protected by the Federal Confidentiality of Alcohol and Drug Abuse Patient Records regulations: The Federal rules restrict any use of the information to criminally investigate or prosecute any alcohol or drug abuse patient.[facility] TownshipIn the event this information is protected by the Federal Confidentiality of Alcohol and Drug Abuse Patient Records regulations: The Federal rules restrict any use of the information to criminally investigate or prosecute any alcohol or drug abuse patient.[facility] TownshipIn the event this information is protected by the Federal Confidentiality of Alcohol and Drug Abuse Patient Records regulations: The Federal rules restrict any use of the information to criminally investigate or prosecute any alcohol or drug abuse patient.[facility] TownshipIn the event this information is protected by the Federal Confidentiality of Alcohol and Drug Abuse Patient Records regulations: The Federal rules restrict any use of the information to criminally investigate or prosecute any alcohol or drug abuse patient.[facility] TownshipIn the event this information is protected by the Federal Confidentiality of Alcohol and Drug Abuse Patient Records regulations: The Federal rules restrict any use of the information to criminally investigate or prosecute any alcohol or drug abuse patient.[facility] TownshipIn the event this information is protected by the Federal Confidentiality of Alcohol and Drug Abuse Patient Records regulations: The Federal rules restrict any use of the information to criminally investigate or prosecute any alcohol or drug abuse patient.[facility] TownshipIn the event this information is protected by the Federal Confidentiality of Alcohol and Drug Abuse Patient Records regulations: The Federal rules restrict any use of the information to criminally investigate or prosecute any alcohol or drug abuse patient.[facility] TownshipIn the event this information is protected by the Federal Confidentiality of Alcohol and Drug Abuse Patient Records regulations: The Federal rules restrict any use of the information to criminally investigate or prosecute any alcohol or drug abuse patient.[facility] TownshipIn the event this information is protected by the Federal Confidentiality of Alcohol and Drug Abuse Patient Records regulations: The Federal rules restrict any use of the information to criminally investigate or prosecute any alcohol or drug abuse patient.[facility] TownshipIn the event this information is protected by the Federal Confidentiality of Alcohol and Drug Abuse Patient Records regulations: The Federal rules restrict any use of the information to criminally investigate or prosecute any alcohol or drug abuse patient.[facility] TownshipIn the event this information is protected by the Federal Confidentiality of Alcohol and Drug Abuse Patient Records regulations: The Federal rules restrict any use of the information to criminally investigate or prosecute any alcohol or drug abuse patient.[facility] TownshipIn the event this information is protected by the Federal Confidentiality of Alcohol and Drug Abuse Patient Records regulations: The Federal rules restrict any use of the information to criminally investigate or prosecute any alcohol or drug abuse patient.[facility] TownshipIn the event this information is protected by the Federal Confidentiality of Alcohol and Drug Abuse Patient Records regulations: The Federal rules restrict any use of the information to criminally investigate or prosecute any alcohol or drug abuse patient.[facility] TownshipIn the event this information is protected by the Federal Confidentiality of Alcohol and Drug Abuse Patient Records regulations: The Federal rules restrict any use of the information to criminally investigate or prosecute any alcohol or drug abuse patient.[facility] TownshipIn the event this information is protected by the Federal Confidentiality of Alcohol and Drug Abuse Patient Records regulations: The Federal rules restrict any use of the information to criminally investigate or prosecute any alcohol or drug abuse patient.[facility] TownshipIn the event this information is protected by the Federal Confidentiality of Alcohol and Drug Abuse Patient Records regulations: The Federal rules restrict any use of the information to criminally investigate or prosecute any alcohol or drug abuse patient.[facility] TownshipIn the event this information is protected by the Federal Confidentiality of Alcohol and Drug Abuse Patient Records regulations: The Federal rules restrict any use of the information to criminally investigate or prosecute any alcohol or drug abuse patient.[facility] TownshipIn the event this information is protected by the Federal Confidentiality of Alcohol and Drug Abuse Patient Records regulations: The Federal rules restrict any use of the information to criminally investigate or prosecute any alcohol or drug abuse patient.[facility] TownshipIn the event this information is protected by the Federal Confidentiality of Alcohol and Drug Abuse Patient Records regulations: The Federal rules restrict any use of the information to criminally investigate or prosecute any alcohol or drug abuse patient.[facility] TownshipIn the event this information is protected by the Federal Confidentiality of Alcohol and Drug Abuse Patient Records regulations: The Federal rules restrict any use of the information to criminally investigate or prosecute any alcohol or drug abuse patient.[facility] TownshipIn the event this information is protected by the Federal Confidentiality of Alcohol and Drug Abuse Patient Records regulations: The Federal rules restrict any use of the information to criminally investigate or prosecute any alcohol or drug abuse patient.[facility] TownshipIn the event this information is protected by the Federal Confidentiality of Alcohol and Drug Abuse Patient Records regulations: The Federal rules restrict any use of the information to criminally investigate or prosecute any alcohol or drug abuse patient.[facility] TownshipIn the event this information is protected by the Federal Confidentiality of Alcohol and Drug Abuse Patient Records regulations: The Federal rules restrict any use of the information to criminally investigate or prosecute any alcohol or drug abuse patient.[facility] TownshipIn the event this information is protected by the Federal Confidentiality of Alcohol and Drug Abuse Patient Records regulations: The Federal rules restrict any use of the information to criminally investigate or prosecute any alcohol or drug abuse patient.[facility] TownshipIn the event this information is protected by the Federal Confidentiality of Alcohol and Drug Abuse Patient Records regulations: The Federal rules restrict any use of the information to criminally investigate or prosecute any alcohol or drug abuse patient.[facility] TownshipIn the event this information is protected by the Federal Confidentiality of Alcohol and Drug Abuse Patient Records regulations: The Federal rules restrict any use of the information to criminally investigate or prosecute any alcohol or drug abuse patient.[facility] TownshipIn the event this information is protected by the Federal Confidentiality of Alcohol and Drug Abuse Patient Records regulations: The Federal rules restrict any use of the information to criminally investigate or prosecute any alcohol or drug abuse patient.[facility] TownshipIn the event this information is protected by the Federal Confidentiality of Alcohol and Drug Abuse Patient Records regulations: The Federal rules restrict any use of the information to criminally investigate or prosecute any alcohol or drug abuse patient.[facility] TownshipIn the event this information is protected by the Federal Confidentiality of Alcohol and Drug Abuse Patient Records regulations: The Federal rules restrict any use of the information to criminally investigate or prosecute any alcohol or drug abuse patient.[facility] TownshipIn the event this information is protected by the Federal Confidentiality of Alcohol and Drug Abuse Patient Records regulations: The Federal rules restrict any use of the information to criminally investigate or prosecute any alcohol or drug abuse patient.[facility] TownshipIn the event this information is protected by the Federal Confidentiality of Alcohol and Drug Abuse Patient Records regulations: The Federal rules restrict any use of the information to criminally investigate or prosecute any alcohol or drug abuse patient.[facility] TownshipIn the event this information is protected by the Federal Confidentiality of Alcohol and Drug Abuse Patient Records regulations: The Federal rules restrict any use of the information to criminally investigate or prosecute any alcohol or drug abuse patient.[facility] TownshipIn the event this information is protected by the Federal Confidentiality of Alcohol and Drug Abuse Patient Records regulations: The Federal rules restrict any use of the information to criminally investigate or prosecute any alcohol or drug abuse patient.[facility] TownshipIn the event this information is protected by the Federal Confidentiality of Alcohol and Drug Abuse Patient Records regulations: The Federal rules restrict any use of the information to criminally investigate or prosecute any alcohol or drug abuse patient.[facility] TownshipIn the event this information is protected by the Federal Confidentiality of Alcohol and Drug Abuse Patient Records regulations: The Federal rules restrict any use of the information to criminally investigate or prosecute any alcohol or drug abuse patient.[facility] TownshipIn the event this information is protected by the Federal Confidentiality of Alcohol and Drug Abuse Patient Records regulations: The Federal rules restrict any use of the information to criminally investigate or prosecute any alcohol or drug abuse patient.[facility] TownshipIn the event this information is protected by the Federal Confidentiality of Alcohol and Drug Abuse Patient Records regulations: The Federal rules restrict any use of the information to criminally investigate or prosecute any alcohol or drug abuse patient.[facility] TownshipIn the event this information is protected by the Federal Confidentiality of Alcohol and Drug Abuse Patient Records regulations: The Federal rules restrict any use of the information to criminally investigate or prosecute any alcohol or drug abuse patient.[facility] TownshipIn the event this information is protected by the Federal Confidentiality of Alcohol and Drug Abuse Patient Records regulations: The Federal rules restrict any use of the information to criminally investigate or prosecute any alcohol or drug abuse patient.[facility] TownshipIn the event this information is protected by the Federal Confidentiality of Alcohol and Drug Abuse Patient Records regulations: The Federal rules restrict any use of the information to criminally investigate or prosecute any alcohol or drug abuse patient.[facility] TownshipIn the event this information is protected by the Federal Confidentiality of Alcohol and Drug Abuse Patient Records regulations: The Federal rules restrict any use of the information to criminally investigate or prosecute any alcohol or drug abuse patient.[facility] TownshipIn the event this information is protected by the Federal Confidentiality of Alcohol and Drug Abuse Patient Records regulations: The Federal rules restrict any use of the information to criminally investigate or prosecute any alcohol or drug abuse patient.[facility] TownshipIn the event this information is protected by the Federal Confidentiality of Alcohol and Drug Abuse Patient Records regulations: The Federal rules restrict any use of the information to criminally investigate or prosecute any alcohol or drug abuse patient.[facility] TownshipIn the event this information is protected by the Federal Confidentiality of Alcohol and Drug Abuse Patient Records regulations: The Federal rules restrict any use of the information to criminally investigate or prosecute any alcohol or drug abuse patient.[facility] TownshipIn the event this information is protected by the Federal Confidentiality of Alcohol and Drug Abuse Patient Records regulations: The Federal rules restrict any use of the information to criminally investigate or prosecute any alcohol or drug abuse patient.[facility] TownshipIn the event this information is protected by the Federal Confidentiality of Alcohol and Drug Abuse Patient Records regulations: The Federal rules restrict any use of the information to criminally investigate or prosecute any alcohol or drug abuse patient.[facility] TownshipIn the event this information is protected by the Federal Confidentiality of Alcohol and Drug Abuse Patient Records regulations: The Federal rules restrict any use of the information to criminally investigate or prosecute any alcohol or drug abuse patient.[facility] TownshipIn the event this information is protected by the Federal Confidentiality of Alcohol and Drug Abuse Patient Records regulations: The Federal rules restrict any use of the information to criminally investigate or prosecute any alcohol or drug abuse patient.[facility] TownshipIn the event this information is protected by the Federal Confidentiality of Alcohol and Drug Abuse Patient Records regulations: The Federal rules restrict any use of the information to criminally investigate or prosecute any alcohol or drug abuse patient.[facility] TownshipIn the event this information is protected by the Federal Confidentiality of Alcohol and Drug Abuse Patient Records regulations: The Federal rules restrict any use of the information to criminally investigate or prosecute any alcohol or drug abuse patient.[facility] TownshipIn the event this information is protected by the Federal Confidentiality of Alcohol and Drug Abuse Patient Records regulations: The Federal rules restrict any use of the information to criminally investigate or prosecute any alcohol or drug abuse patient.[facility] TownshipIn the event this information is protected by the Federal Confidentiality of Alcohol and Drug Abuse Patient Records regulations: The Federal rules restrict any use of the information to criminally investigate or prosecute any alcohol or drug abuse patient.[facility] TownshipIn the event this information is protected by the Federal Confidentiality of Alcohol and Drug Abuse Patient Records regulations: The Federal rules restrict any use of the information to criminally investigate or prosecute any alcohol or drug abuse patient.[facility] TownshipIn the event this information is protected by the Federal Confidentiality of Alcohol and Drug Abuse Patient Records regulations: The Federal rules restrict any use of the information to criminally investigate or prosecute any alcohol or drug abuse patient.[facility] TownshipIn the event this information is protected by the Federal Confidentiality of Alcohol and Drug Abuse Patient Records regulations: The Federal rules restrict any use of the information to criminally investigate or prosecute any alcohol or drug abuse patient.[facility] TownshipIn the event this information is protected by the Federal Confidentiality of Alcohol and Drug Abuse Patient Records regulations: The Federal rules restrict any use of the information to criminally investigate or prosecute any alcohol or drug abuse patient.[facility] TownshipIn the event this information is protected by the Federal Confidentiality of Alcohol and Drug Abuse Patient Records regulations: The Federal rules restrict any use of the information to criminally investigate or prosecute any alcohol or drug abuse patient.[facility] TownshipIn the event this information is protected by the Federal Confidentiality of Alcohol and Drug Abuse Patient Records regulations: The Federal rules restrict any use of the information to criminally investigate or prosecute any alcohol or drug abuse patient.[facility] TownshipIn the event this information is protected by the Federal Confidentiality of Alcohol and Drug Abuse Patient Records regulations: The Federal rules restrict any use of the information to criminally investigate or prosecute any alcohol or drug abuse patient.[facility] Reason for Visit (unrecogniz ed section and content) Reason Comments F/U 3 Month Specialty Diagnoses / Procedures Referred By Contac t Referred To Contact Family Medicine / FAMILY MEDICINE Diagnoses Follow-up exam, 3-6 months since previous exam 3 month medication follow up Procedures OFFICE/OUTPATIENT ESTABLISHED HIGH MDM 40 MIN 4C EST Teri Gruber APRN.THEATRICAL AGENT [address] [place] [address] Phone: tel: fax: Teri Gruber APRN.THEATRICAL AGENT [address] [place] [address] Phone: tel: fax: Referral ID Status Reason Start Date Expiration Date V isits Requested Visits Authorized [id number] Authorized 05/05/2024 04/05/2025 99 99 Reason Comments Anticoagulation Specialty Diagnoses / Procedures Referred By Contac t Referred To Contact Internal Medicine / [facility]ADIN [facility] Diagnoses INR needed for tooth extraction. Procedures EST Franc Hughes MD [address] [place] [address] Anticoag [facility] [address] [place] [address] Referral ID Status Reason Start Date Expiration Date V isits Requested Visits Authorized [id number] Pending Review 01/16/2022 04/16/2022 1 1 Reason [...] 5 NEW CLINICAL PATIENT Iglesia Ansari MD [address] [place] [address] Mj Dos Santos MD [address] [place] [address] Referral ID Status Reason Start Date Expiration Date Visits Re quested Visits Authorized [id number] Closed 02/13/2021 04/05/2021 1 1 Reason Comments [...] Referred By Roula tolentino Referred To Contact General Surgery / GENERAL SURGERY Diagnoses recall 3 ry colonoscopy Procedures EST DDI PATIENT Micah Rosenberg MD [address] [place] [id number] Cyndy Parker PA-C [address] [place] [address] Referral ID Status Reason Start Date Expiration Date Visits Re quested Visits Authorized [id number] Closed 11/04/2021 04/05/2022 1 1 Reason Comments F/U 6 months Reason Onset Date Comments Refill Request 11/24/2021 Reason Onset Date Comments Refill Request 11/27/2021 Reason Comments Macular Hole Follow Up S/P PPV OS Specialty Diagnoses / Procedures Referred By Contac t Referred To Contact Ophthalmology / OPHTHALMOLOGY Diagnoses Annual Procedures OFFICE/OUTPATIENT ESTABLISHED HIGH MDM 40-54 MIN EST ADULT Self, Kvng Yan MD [address] [place] [address] Referral ID Status Reason Start Date Expiration Date Visits Re quested Visits Authorized [id number] Closed 11/28/2021 04/05/2022 1 1 Reason Comments [...] Care Specialty Diagnoses / Procedures [facility] To Contact Internal Medicine / INTERNAL MEDICINE Diagnoses transferring care Procedures OFFICE/OUTPATIENT ESTABLISHED HIGH MDM 40-54 MIN 4C EST WELL Self Bonnie Sharif APRN.SENIOR BUSINESS DEVELOPMENT ANALYST [address] [place] [address] Referral ID Status Reason Start Date Expiration Date Visits Re quested Visits Authorized [id number] Closed 01/20/2022 04/05/2022 1 1 Reason Comments [...] MDM 60-74 MINUTES Franc Hills MD [address] [place] [address] Referral ID Status Reason Start Date Expiration Date Visits Requested Visits Authorized [id number] Pending Review PCP Requested Referral 09/24/2022 09/24/2023 1 1 Reason Comments Appointment Specialty Diagnoses / Procedures Referred By Contac t Referred To Contact Internal Medicine / INTERNAL MEDICINE Diagnoses 3 Month follow up Procedures 4C EST Self Franc Hills MD [address] [place] [address] Referral ID Status Reason Start Date Expiration Date V isits Requested Visits Authorized [id number] Outside PCP 11/24/2022 02/22/2023 1 1 Reason Comments Patient Update Anticoagulation hold for 11/26/22 Reason Comments Macular Hole Follow Up Specialty Diagnoses / Procedures Referred By Contac t Referred To Contact Ophthalmology / OPHTHALMOLOGY Diagnoses Annual Procedures EST ADULT Self Kvng Magaña MD [address] [place] [place] [address] Referral ID Status Reason Start Date Expiration Date V isits Requested Visits Authorized [id number] Outside PCP 12/09/2022 03/09/2023 1 1 Reason [...] MDM 60-74 MINUTES Franc Hills MD [address] [place] [address] Referral ID Status Reason Start Date Expiration Date Visits Requested Visits Authorized [id number] Pending Review PCP Requested Referral 10/07/2022 10/07/2023 [...] Referred By Roula t Referred To Contact MR IMAGING Diagnoses Lumbar pain Acute bilateral low back pain without sciatica Fall, subsequent encounter Procedures MRI LUMBAR SPINE WO IVCON MRI SPINAL CANAL LUMBAR W/O CONTRAST MATERIAL Zeny Lam APRN.THEATRICAL AGENT [address] [place] [address] [facility] [place] [address] Referral ID Status Reason Start Date Expiration Date V isits Requested Visits Authorized [id number] Closed Auto-Generate d Referral 05/29/2023 09/04/2023 1 [...] Discharge Specialty Diagnoses / Procedures Referred By Contac t Referred To Contact [facility] Diagnoses Chronic low back pain without sciatica, unspecified back pain laterality Compression fracture of L1 vertebra with routine healing, subsequent encounter Sciatic leg pain Procedures CONSULT TO PHYSICAL THERAPY PHYSICAL THERAPY EVALUATION HIGH COMPLEX 45 MINS Zeny Lam APRN.THEATRICAL AGENT [address] [place] [address] [facility] [place] [address] [place] [address] Referral ID Status Reason Start Date Expiration Date Visits Requested Visits Authorized [id number] Authorized Auto-Generat ed Referral 04/06/2023 04/05/2024 99 99 Reason Onset Date Comments Refill Request 07/13/2023 Reason Comments ED Follow-up back pain seen in ER 07/15/23 Reason Onset Date Comments Refill Request 07/17/2023 Reason Onset Date Comments Refill Request 07/20/2023 Reason Comments Med Change Request Reason Comments ER F/U 07/15/2023 fo r back pain/injury from a fall Reason Onset Date Comments Refill Request 08/04/2023 Reason Comments Benign Prostatic Hypertrophy BPH with CHARMAINE TS Specialty Diagnoses / Procedures Referred By Contac t Referred To Contact Urology Diagnoses BPH with obstruction/lower urinary tract symptoms Procedures CONSULT TO UROLOGY OFFICE/OUTPATIENT [facility] 60 MINUTES Franc Hills MD [address] [place] [id number] Referral ID Status Reason Start Date Expiration Date V isits Requested Visits Authorized [id number] Closed PCP Requested Referral 07/18/2023 07/17/2024 1 [...] CONSULT TO WELLNESS NON-PHARMACOLOGIC PAIN MANAGEMENT OFFICE/OUTPATIENT [facility] 60 MINUTES Zeny Lam APRN.THEATRICAL AGENT [address] [place] [address] Referral ID Status Reason Start Date Expiration Date V isits Requested Visits Authorized [id number] Closed PCP Requested Referral 06/29/2023 06/28/2024 1 [...] NEW [place] ACUPUNCTURE Irene Moraes MD [address] [place] [id number] Walt Yang R Ac [address] [place] [id number] Referral ID Status Reason Start Date Expiration Date Visits Requested Visits Authorized [id number] Authorized Patient Cleared Patient agrees to sign [...] MIN 3 VIEWS wrist xr Kvng Freire APRN.THEATRICAL AGENT [address] [place] [address] [facility] [address] [place] [address] Referral ID Status Reason Start Date Expiration Date V isits Requested Visits Authorized [id number] Closed OON/Self Pay Override 01/13/2020 04/05/2020 1 1 Reason Comments ED Follow-up lightheadedness, lexi vated bp [facility] ER 01/08/24 Reason Comments Blood Pressure Anticoagulation Reason Comments blood pressure elevation Reason Comments my chart message converted to phone note , blood pressure is Reason Comments 04/20/2022 EGD [facility] Reason Comments Recheck Reason Onset Date Comments Refill Request 02/14/[address] Specialty Diagnoses / Procedures Referred By Roula t Referred To Contact CT IMAGING Diagnoses Primary hypertension Dizziness Procedures CT BRAIN WO IVCON CT HEAD/BRAIN W/O CONTRAST MATERIAL Zeny Lam AIR CONDITIONING SUPERVISOR.THEATRICAL AGENT [address] [place] [address] Ct [facility] [place] [address] Referral ID Status Reason Start Date Expiration Date V isits Requested Visits Authorized [id number] Closed Auto-Generate d Referral 02/15/2024 03/16/2025 1 [...] Referred By Roula tolentino Referred To Contact [facility] Diagnoses Shortness of breath Procedures NM CARDIAC PERF STRESS/PHARM MYOCARDIAL SPECT MULTIPLE STUDIES Teri Gruber, AIR CONDITIONING SUPERVISOR.THEATRICAL AGENT [address] [place] [address] Phone: tel: fax: [facility] [address] [place] [address] Phone: tel: Referral ID Status Reason Start Date Expiration Date V isits Requested Visits Authorized [id number] Closed Auto-Generate d Referral 05/17/2024 06/16/2025 1 [...] EXHALED NITRIC OXIDE GAS DETERMINATION Zeny Lam APRN.THEATRICAL AGENT [address] [place] [address] Phone: tel: fax: Respiratory [address] [address] Referral ID Status Reason Start Date Expiration Date V isits Requested Visits Authorized [id number] Closed Auto-Generate d Referral 07/25/2024 08/24/2025 1 1 Specialty Diagnoses / Procedures [facility] Referred To Contact [facility] [place] Diagnoses Shortness of breath Procedures SPIROMETRY WITH DILATOR IF OBSTRUCTED BRNCDILAT RSPSE SPMTRY PRE&POST-BRNCDILAT ADMN Zeny Lam APRN.THEATRICAL AGENT [address] [place] [address] Phone: tel: fax: [address] [address] Referral ID Status Reason Start Date Expiration Date V isits Requested Visits Authorized [id number] Closed Auto-Generate d Referral 07/25/2024 08/24/2025 1 1 Specialty Diagnoses / Procedures [facility] Referred To Contact [facility] Diagnoses Shortness of breath Procedures LUNG DIFFUSION CAPACITY (DLCO) DIFFUSING CAPACITY Zeny Lam APRN.THEATRICAL AGENT [address] [place] [address] Phone: tel: fax: [address] [address] Referral ID Status Reason Start Date Expiration Date V isits Requested Visits Authorized [id number] Closed Auto-Generate d Referral 07/25/2024 08/24/2025 1 [...] findings Medicare wellness exam Procedures OFFICE/OUTPATIENT NEW HIGH MDM 60 MINUTES OFFICE/OUTPATIENT ESTABLISHED HIGH MDM 40 MIN 4C EST WELL [facility] [address] [place] [address] Phone: tel: Zeny Lam APRN.CNP [address] [place] [address] Phone: tel: fax: Referral ID Status Reason Start Date Expiration Date V isits Requested Visits Authorized [id number] Authorized 04/06/2024 04/05/2025 99 99 Reason Onset Date Comments Refill Request 09/05/2024 Reason Onset Date Comments Refill Request 09/08/2024 Reason Onset Date Comments Anticoagulation 09/21/2024 Reason Comments New Patient Dyspnea Reason Comments Medication Question bp reading Reason Comments Patient Update Thank you Reason Comments F/U 3 Month Care Teams (unrecognized sec tion and content) Blood Bank Laboratory Technician Relationship Specialty Start Date End Date Franc Hills MD [address] [place], [place] [address] PCP - General 05/30/09 Mckinley Jaramillo, DO [address] [place], [place] [id number] Consulting Hematology/Oncology 05/16/14 Mj Dos Santos MD [address] [place] [address] Crossbar Switch Adjuster Cardiology 03/01/21 04/17/89 Blood Bank Laboratory Technician Relationship Specialty Start Date End Date Franc Hills MD [address] [place], [place] [id number] PCP - General 05/30/09 Mckinley Jaramillo, DO [address] [place], [place] [id number] Consulting Hematology/Oncology 05/16/14 Mj Dos Santos MD [address] [place] [address] Crossbar Switch Adjuster Cardiology 03/01/21 04/17/89 Blood Bank Laboratory Technician Relationship Specialty Start Date End Date Franc Hills MD [address] [facility] [place] [address] PCP - General 05/30/09 Mckinley Jaramillo, DO [address] [place] [address] Consulting Hematology/Oncology 05/16/14 Mj Dos Santos MD [address] [facility] [place] [address] Crossbar Switch Adjuster Cardiology 03/01/21 04/17/89 Blood Bank Laboratory Technician Relationship Specialty Start Date End Date Franc Hills MD [address] [facility] [place] [address] PCP - General 05/30/09 Mckinley Jaramillo, DO [address] [place] [address] Consulting Hematology/Oncology 05/16/14 Mj Dos Santos MD [address] [facility] [place] [address] Crossbar Switch Adjuster Cardiology 03/01/21 04/17/89 Blood Bank Laboratory Technician Relationship Specialty Start Date End Date Franc Hills MD [address] [facility] [place] [address] PCP - General 05/30/09 Mckinley Jaramillo, DO [address] [place] [address] Consulting Hematology/Oncology 05/16/14 Mj Dos Santos MD [address] [facility] [place] [address] Crossbar Switch Adjuster Cardiology 03/01/21 04/17/89 Blood Bank Laboratory Technician Relationship Specialty Start Date End Date Franc Hills MD [address] [facility] [place] [address] PCP - General 05/30/09 Mckinley Jaramillo, DO [address] [place] [address] Consulting Hematology/Oncology 05/16/14 Mj Dos Santos MD [address] [place] [address] Crossbar Switch Adjuster Cardiology 03/01/21 04/17/89 Blood Bank Laboratory Technician Relationship Specialty Start Date End Date Franc Hills MD [address] [facility] [place] [address] PCP - General 05/30/09 Mckinley Jaramillo, DO [address] [place] [address] Consulting Hematology/Oncology 05/16/14 Mj Dos Santos MD [address] [place] [address] Crossbar Switch Adjuster Cardiology 03/01/21 04/17/89 Blood Bank Laboratory Technician Relationship Specialty Start Date End Date Franc Hills MD [address] [facility] [place] [address] PCP - General 05/30/09 Mckinley Jaramillo, DO [address] [place] [address] Consulting Hematology/Oncology 05/16/14 Mj Dos Santos MD [address] [place] [address] Crossbar Switch Adjuster Cardiology 03/01/21 04/17/89 Blood Bank Laboratory Technician Relationship Specialty Start Date End Date Franc Hills MD [address] [facility] [place] [address] PCP - General 05/30/09 Mckinley Jaramillo, DO [address] [place] [address] Consulting Hematology/Oncology 05/16/14 Mj Dos Santos MD [address] [place] [address] Crossbar Switch Adjuster Cardiology 03/01/21 04/17/89 Blood Bank Laboratory Technician Relationship Specialty Start Date End Date Franc Hills MD [address] [facility] [place] [address] PCP - General 05/30/09 Mckinley Jaramillo, DO [address] [place] [place] [address] Consulting Hematology/Oncology 05/16/14 Mj Dos Santos MD [address] [place] [address] Crossbar Switch Adjuster Cardiology 03/01/21 04/17/89 Blood Bank Laboratory Technician Relationship Specialty Start Date End Date Franc Hills MD [address] [facility] [place] [address] PCP - General 05/30/09 Mckinley Jaramillo, DO [address] [place] [address] Consulting Hematology/Oncology 05/16/14 Mj Dos Santos MD [address] [place] [address] Crossbar Switch Adjuster Cardiology 03/01/21 04/17/89 Blood Bank Laboratory Technician Relationship Specialty Start Date End Date Franc Hills MD [address] [facility] [place] [address] PCP - General 05/30/09 Mckinley Jaramillo, DO [address] [place] [address] Consulting Hematology/Oncology 05/16/14 Mj Dos Santos MD [address] [place] [address] Crossbar Switch Adjuster Cardiology 03/01/21 04/17/89 Blood Bank Laboratory Technician Relationship Specialty Start Date End Date Franc Hills MD [address] [facility] [place] [address] PCP - General 05/30/09 Mckinley Jaramillo, DO [address] [place] [address] Consulting Hematology/Oncology 05/16/14 Mj Dos Santos MD [address] [place] [address] Crossbar Switch Adjuster Cardiology 03/01/21 04/17/89 Blood Bank Laboratory Technician Relationship Specialty Start Date End Date Franc Hills MD [address] [facility] [place] [address] PCP - General 05/30/09 Mckinley Jaramillo, DO [address] [place] [address] Consulting Hematology/Oncology 05/16/14 Mj Dos Santos MD [address] [place] [address] Crossbar Switch Adjuster Cardiology 03/01/21 04/17/89 Blood Bank Laboratory Technician Relationship Specialty Start Date End Date Franc Hills MD [address] [facility] [place] [address] PCP - General 05/30/09 Mckinley Jaramillo, DO [address] [place] [place] [address] Consulting Hematology/Oncology 05/16/14 Mj Dos Santos MD [address] [place] [address] Crossbar Switch Adjuster Cardiology 03/01/21 04/17/89 Blood Bank Laboratory Technician Relationship Specialty Start Date End Date Franc Hills MD [address] [place] [address] PCP - General 05/30/09 Mckinley Jaramillo, DO [address] [facility] [place] [address] Consulting Hematology/Oncology 05/16/14 Mj Dos Santos MD [address] [place], [place] [id number] Crossbar Switch Adjuster Cardiology 03/01/21 04/17/89 Blood Bank Laboratory Technician Relationship Specialty Start Date End Date Franc Hills MD [address] [place] [address] PCP - General 05/30/09 Mckinley Jaramillo, DO [address] [place] [address] Consulting Hematology/Oncology 05/16/14 Mj Dos Santos MD [address] [place], [place] [id number] Crossbar Switch Adjuster Cardiology 03/01/21 04/17/89 Blood Bank Laboratory Technician Relationship Specialty Start Date End Date Franc Hills MD [address] [place] [address] PCP - General 05/30/09 Mckinley Jaramillo, DO [address] [place] [address] Consulting Hematology/Oncology 05/16/14 Mj Dos Santos MD [address] [place] [address] Crossbar Switch Adjuster Cardiology 03/01/21 04/17/89 Blood Bank Laboratory Technician Relationship Specialty Start Date End Date Franc Hills MD [address] [facility] [place] [address] PCP - General 05/30/09 Mckinley Jaramillo, DO [address] [place] [address] Consulting Hematology/Oncology 05/16/14 Mj Dos Santos MD [address] [place] [address] Crossbar Switch Adjuster Cardiology 03/01/21 04/17/89 Blood Bank Laboratory Technician Relationship Specialty Start Date End Date Franc Hills MD [address] [facility] [place] [address] PCP - General 05/30/09 Mckinley Jaramillo, DO [address] [place] [address] Consulting Hematology/Oncology 05/16/14 Mj Dos Santos MD [address] [place] [address] Crossbar Switch Adjuster Cardiology 03/01/21 04/17/89 Blood Bank Laboratory Technician Relationship Specialty Start Date End Date Mani Edwards MD [address] [facility] [place] [address] PCP - General Internal Medicine 02/03/22 Mckinley Jaramillo, DO [address] [place] [address] Consulting Hematology/Oncology 05/16/14 Mj Dos Santos MD [address] [place] [address] Crossbar Switch Adjuster Cardiology 03/01/21 04/17/89 Blood Bank Laboratory Technician Relationship Specialty Start Date End Date Mani Edwards MD [address] [facility] [place] [address] PCP - General Internal Medicine 02/03/22 Mckinley Jaramillo, DO [address] [place] [address] Consulting Hematology/Oncology 05/16/14 Mj Dos Santos MD [address] [place] [address] Crossbar Switch Adjuster Cardiology 03/01/21 04/17/89 Blood Bank Laboratory Technician Relationship Specialty Start Date End Date Franc Hills MD [address] [facility] [place] [address] PCP - General Internal Medicine 02/11/22 Mckinley Jaramillo, DO [address] [facility] [place] [address] Consulting Hematology/Oncology 05/16/14 Mj Dos Santos MD [address] [place] [address] Crossbar Switch Adjuster Cardiology 03/01/21 04/17/89 Blood Bank Laboratory Technician Relationship Specialty Start Date End Date Franc Hills MD [address] [facility] [place] [address] PCP - General Internal Medicine 02/11/22 Mckinley Jaramillo, DO [address] [place] [address] Consulting Hematology/Oncology 05/16/14 Mj Dos Santos MD [address] [place] [address] Crossbar Switch Adjuster Cardiology 03/01/21 04/17/89 Blood Bank Laboratory Technician Relationship Specialty Start Date End Date Franc Hills MD [address] [facility] [place] [address] PCP - General Internal Medicine 02/11/22 Mckinley Jaramillo, DO [address] [place] [address] Consulting Hematology/Oncology 05/16/14 Mj Dos Santos MD [address] [place] [address] Crossbar Switch Adjuster Cardiology 03/01/21 04/17/89 Blood Bank Laboratory Technician Relationship Specialty Start Date End Date Franc Hills MD [address] [place] [address] PCP - General Internal Medicine 02/11/22 Mckinley Jaramillo, DO [address] [place] [address] Consulting Hematology/Oncology 05/16/14 Mj Dos Santos MD [address] [place] [address] Crossbar Switch Adjuster Cardiology 03/01/21 04/17/89 Blood Bank Laboratory Technician Relationship Specialty Start Date End Date Franc Hills MD [address] [place] [address] PCP - General Internal Medicine 02/11/22 Mckinley Jaramillo, DO [address] [place] [address] Consulting Hematology/Oncology 05/16/14 Mj Dos Santos MD [address] [facility] [place] [address] Crossbar Switch Adjuster Cardiology 03/01/21 04/17/89 Blood Bank Laboratory Technician Relationship Specialty Start Date End Date Franc Hills MD [address] [facility] [place] [address] PCP - General Internal Medicine 02/11/22 Mckinley Jaramillo, DO [address] [place] [place] [address] Consulting Hematology/Oncology 05/16/14 Mj Dos Santos MD [address] [place] [address] Crossbar Switch Adjuster Cardiology 03/01/21 04/17/89 Blood Bank Laboratory Technician Relationship Specialty Start Date End Date Franc Hills MD [address] [facility] [place] [address] PCP - General Internal Medicine 02/11/22 Mckinley Jaramillo, DO [address] [place] [address] Consulting Hematology/Oncology 05/16/14 Mj Dos Santos MD [address] [place] [address] Crossbar Switch Adjuster Cardiology 03/01/21 04/17/89 Blood Bank Laboratory Technician Relationship Specialty Start Date End Date Franc Hills MD [address] [facility] [place] [address] PCP - General Internal Medicine 02/11/22 Mckinley Jaramillo, DO [address] [place] [address] Consulting Hematology/Oncology 05/16/14 Mj Dos Santos MD [address] [place] [address] Crossbar Switch Adjuster Cardiology 03/01/21 04/17/89 Blood Bank Laboratory Technician Relationship Specialty Start Date End Date Franc Hills MD [address] [facility] [place] [address] PCP - General Internal Medicine 02/11/22 Mckinley Jaramillo, DO [address] [place] [address] Consulting Hematology/Oncology 05/16/14 Mj Dos Santos MD [address] [place] [address] Crossbar Switch Adjuster Cardiology 03/01/21 04/17/89 Blood Bank Laboratory Technician Relationship Specialty Start Date End Date Franc Hills MD [address] [facility] [place] [address] PCP - General Internal Medicine 02/11/22 Mckinley Jaramillo, DO [address] [place] [address] Consulting Hematology/Oncology 05/16/14 Mj Dos Santos MD [address] [place] [address] Crossbar Switch Adjuster Cardiology 03/01/21 04/17/89 Blood Bank Laboratory Technician Relationship Specialty Start Date End Date Franc Hills MD [address] [facility] [place] [address] PCP - General Internal Medicine 02/11/22 Mckinley Jaramillo, DO [address] [place] [address] Consulting Hematology/Oncology 05/16/14 Mj Dos Santos MD [address] [place] [address] Crossbar Switch Adjuster Cardiology 03/01/21 04/17/89 Blood Bank Laboratory Technician Relationship Specialty Start Date End Date Franc Hills MD [address] [facility] [place] [address] PCP - General Internal Medicine 02/11/22 Mckinley Jaramillo, DO [address] [place] [address] Consulting Hematology/Oncology 05/16/14 Mj Dos Santos MD [address] [place] [address] Crossbar Switch Adjuster Cardiology 03/01/21 04/17/89 Blood Bank Laboratory Technician Relationship Specialty Start Date End Date Franc Hills MD [address] [facility] [place] [address] PCP - General Internal Medicine 02/11/22 Mckinley Jaramillo, DO [address] [place] [address] Consulting Hematology/Oncology 05/16/14 Mj Dos Santos MD [address] [place] [address] Crossbar Switch Adjuster Cardiology 03/01/21 04/17/89 Blood Bank Laboratory Technician Relationship Specialty Start Date End Date Franc Hills MD [address] [facility] [place] [address] PCP - General Internal Medicine 02/11/22 Mckinley Jaramillo, DO [address] [place] [address] Consulting Hematology/Oncology 05/16/14 Mj Dos Santos MD [address] [place] [address] Crossbar Switch Adjuster Cardiology 03/01/21 04/17/89 Blood Bank Laboratory Technician Relationship Specialty Start Date End Date Franc Hills MD [address] [facility] [place] [address] PCP - General Internal Medicine 02/11/22 Mckinley Jaramillo, [address] [place] [address] Consulting Hematology/Oncology 05/16/14 Mj Dos Santos MD [address] [facility] [place] [address] Crossbar Switch Adjuster Cardiology 03/01/21 04/17/89 Blood Bank Laboratory Technician Relationship Specialty Start Date End Date Franc Hills MD [address] [facility] [place] [address] PCP - General Internal Medicine 02/11/22 Mckinley Jaramillo DO [address] [place] [address] Consulting Hematology/Oncology 05/16/14 Mj Dos Santos MD [address] [place] [address] Crossbar Switch Adjuster Cardiology 03/01/21 04/17/89 Blood Bank Laboratory Technician Relationship Specialty Start Date End Date Franc Hills MD [address] [facility] [place] [address] PCP - General Internal Medicine 02/11/22 Mckinley Jaramillo DO [address] [place] [address] Consulting Hematology/Oncology 05/16/14 Mj Dos Santos MD [address] [place], [place] [id number] Crossbar Switch Adjuster Cardiology 03/01/21 04/17/89 Blood Bank Laboratory Technician Relationship Specialty Start Date End Date Franc Hills MD [address] [place], [place] [address]01 PCP - General Internal Medicine 02/11/22 Mckinley Jaramillo DO [address] [place] [address] Consulting Hematology/Oncology 05/16/14 Mj Dos Santos MD [address] [place] [address] Crossbar Switch Adjuster Cardiology 03/01/21 04/17/89 Blood Bank Laboratory Technician Relationship Specialty Start Date End Date Franc Hills MD [address] [place] [address] PCP - General Internal Medicine 02/11/22 Mckinley Jaramillo DO [address] [place] [address] Consulting Hematology/Oncology 05/16/14 Mj Dos Santos MD [address] [place], [place] [id number] Crossbar Switch Adjuster Cardiology 03/01/21 04/17/89 Blood Bank Laboratory Technician Relationship Specialty Start Date End Date Franc Hills MD [address] [place] [address] PCP - General Internal Medicine 02/11/22 Mckinley Jaramillo DO [address] [place] [address] Consulting Hematology/Oncology 05/16/14 Mj Dos Santos MD [address] [place] [address] Crossbar Switch Adjuster Cardiology 03/01/21 04/17/89 Blood Bank Laboratory Technician Relationship Specialty Start Date End Date Franc Hills MD [address] [place] [address] PCP - General Internal Medicine 02/11/22 Mckinley Jaramillo DO [address] [place] [address] Consulting Hematology/Oncology 05/16/14 Mj Dos Santos MD [address] [place] [address] Crossbar Switch Adjuster Cardiology 03/01/21 04/17/89 Blood Bank Laboratory Technician Relationship Specialty Start Date End Date Franc Hills MD [address] [place] [address] PCP - General Internal Medicine 02/11/22 Mckinley Jaramillo DO [address] [place] [address] Consulting Hematology/Oncology 05/16/14 Mj Dos Santos MD [address] [place], [place] [id number] Crossbar Switch Adjuster Cardiology 03/01/21 04/17/89 Blood Bank Laboratory Technician Relationship Specialty Start Date End Date Franc Hills MD [address] [place] [address] PCP - General Internal Medicine 02/11/22 11/11/22 Franc Hills MD [address] [place] [address] PCP - General Internal Medicine 11/12/22 Mckinley Jaramillo DO [address] [place] [address] Consulting Hematology/Oncology 05/16/14 Mj Dos Santos MD [address] [place] [address] Crossbar Switch Adjuster Cardiology 03/01/21 04/17/89 Blood Bank Laboratory Technician Relationship Specialty Start Date End Date Franc Hills MD [address] [place], [place] [address]37911 PCP - General Internal Medicine 11/12/22 Mckinley Jaramillo DO [address] [place] [address] Consulting Hematology/Oncology 05/16/14 Mj Dos Santos MD [address] [place] [address] Crossbar Switch Adjuster Cardiology 03/01/21 04/17/89 Blood Bank Laboratory Technician Relationship Specialty Start Date End Date Franc Hills MD [address] [place] [address] PCP - General Internal Medicine 11/12/22 Mckinley Jaramillo DO [address] [place] [address] Consulting Hematology/Oncology 05/16/14 Mj Dos Santos MD [address] [place] [address] Crossbar Switch Adjuster Cardiology 03/01/21 04/17/89 Blood Bank Laboratory Technician Relationship Specialty Start Date End Date Franc Hills MD [address] [place] [address] PCP - General Internal Medicine 11/12/22 Mckinley Jaramillo DO [address] [place] [address] Consulting Hematology/Oncology 05/16/14 Mj Dos Santos MD [address] [place] [address] Crossbar Switch Adjuster Cardiology 03/01/21 04/17/89 Blood Bank Laboratory Technician Relationship Specialty Start Date End Date Franc Hills MD [address] [place] [address] PCP - General Internal Medicine 11/12/22 Mckinley Jaramillo DO [address] [place] [address] Consulting Hematology/Oncology 05/16/14 Mj Dos Santos MD [address] [place], [place] [address] Crossbar Switch Adjuster Cardiology 03/01/21 04/17/89 Blood Bank Laboratory Technician Relationship Specialty Start Date End Date Franc Hills MD [address] [place] [address] PCP - General Internal Medicine 11/12/22 Mckinley Jaramillo DO [address] [place] [address] Consulting Hematology/Oncology 05/16/14 Mj Dos Santos MD [address] [facility] [place] [place] [address] Crossbar Switch Adjuster Cardiology 03/01/21 04/17/89 Blood Bank Laboratory Technician Relationship Specialty Start Date End Date Franc Hills MD [address] [place], [place] 123501 PCP - General Internal Medicine 11/12/22 Mckinley Jaramillo DO [address] [place], [place] 072591 Consulting Hematology/Oncology 05/16/14 Mj Dos Santos MD [address] [facility] [place] [address] Crossbar Switch Adjuster Cardiology 03/01/21 04/17/89 Blood Bank Laboratory Technician Relationship Specialty Start Date End Date Franc Hills MD [address] [place], [place] 718391 PCP - General Internal Medicine 11/12/22 Mckinley Jaramillo DO [address] [facility] [place] [address] Consulting Hematology/Oncology 05/16/14 Mj Dos Santos MD [address] [place] [address] Crossbar Switch Adjuster Cardiology 03/01/21 04/17/89 Blood Bank Laboratory Technician Relationship Specialty Start Date End Date Franc Hills MD [address] [place] [address] PCP - General Internal Medicine 11/12/22 Mckinley Jaramillo DO [address] [place] [address] Consulting Hematology/Oncology 05/16/14 Mj Dos Santos MD [address] [place] [address] Crossbar Switch Adjuster Cardiology 03/01/21 04/17/89 Blood Bank Laboratory Technician Relationship Specialty Start Date End Date Franc Hills MD [address] [place] [address] PCP - General Internal Medicine 11/12/22 Mckinley Jaramillo DO [address] [place] [address] Consulting Hematology/Oncology 05/16/14 Mj Dos Santos MD [address] [place] [address] Crossbar Switch Adjuster Cardiology 03/01/21 04/17/89 Blood Bank Laboratory Technician Relationship Specialty Start Date End Date Franc Hills MD [address] [place] [address] PCP - General Internal Medicine 11/12/22 Mckinley Jaramillo DO [address] [place] [address] Consulting Hematology/Oncology 05/16/14 Mj Dos Santos MD [address] [place] [address] Crossbar Switch Adjuster Cardiology 03/01/21 04/17/89 Blood Bank Laboratory Technician Relationship Specialty Start Date End Date Franc Hills MD [address] [place], [place] 925901 PCP - General Internal Medicine 11/12/22 Mckinley Jaramillo DO [address] [place], [place] 076891 Consulting Hematology/Oncology 05/16/14 Mj Dos Santos MD [address] [place] [address] Crossbar Switch Adjuster Cardiology 03/01/21 04/17/89 Blood Bank Laboratory Technician Relationship Specialty Start Date End Date Franc Hills MD [address] [place] [address] PCP - General Internal Medicine 11/12/22 Mckinley Jaramillo DO [address] [place] [address] Consulting Hematology/Oncology 05/16/14 Mj Dos Santos MD [address] [place] [address] Crossbar Switch Adjuster Cardiology 03/01/21 04/17/89 Blood Bank Laboratory Technician Relationship Specialty Start Date End Date Franc Hills MD [address] [place], [place] 498911 PCP - General Internal Medicine 11/12/22 Mckinley Jaramillo DO [address] [place], [place] 063351 Consulting Hematology/Oncology 05/16/14 Mj Dos Santos MD [address] [place] [address] Crossbar Switch Adjuster Cardiology 03/01/21 04/17/89 Blood Bank Laboratory Technician Relationship Specialty Start Date End Date Franc Hills MD [address] [place], [place] 592611 PCP - General Internal Medicine 01/14/23 Mckinley Jaramillo DO [address] [place], [place] 435981 Consulting Hematology/Oncology 05/16/14 Mj Dos Santos MD [address] [place] [address] Crossbar Switch Adjuster Cardiology 03/01/21 04/17/89 Blood Bank Laboratory Technician Relationship Specialty Start Date End Date Franc Hills MD [address] [place], [place] 385031 PCP - General Internal Medicine 01/14/23 Mckinley Jaramillo DO [address] [place] [address] Consulting Hematology/Oncology 05/16/14 Mj Dos Santos MD [address] [place] [address] Crossbar Switch Adjuster Cardiology 03/01/21 04/17/89 Blood Bank Laboratory Technician Relationship Specialty Start Date End Date Franc Hills MD [address] [place] [address] PCP - General Internal Medicine 01/14/23 Mckinley Jaramillo DO [address] [place] [address] Consulting Hematology/Oncology 05/16/14 Mj Dos Santos MD [address] [place] [address] Crossbar Switch Adjuster Cardiology 03/01/21 04/17/89 Blood Bank Laboratory Technician Relationship Specialty Start Date End Date Franc Hills MD [address] [place] [address] PCP - General Internal Medicine 01/14/23 Mckinley Jaramillo DO [address] [place] [address] Consulting Hematology/Oncology 05/16/14 Mj Dos Santos MD [address] [place] [address] Crossbar Switch Adjuster Cardiology 03/01/21 04/17/89 Blood Bank Laboratory Technician Relationship Specialty Start Date End Date Zeny Lam APRN.THEATRICAL AGENT [address] [place] [address] PCP - General Internal Medicine 01/23/23 Mckinley Jaramillo DO [address] [place] [address] Consulting Hematology/Oncology 05/16/14 Mj Dos Santos MD [address] [place] [address] Crossbar Switch Adjuster Cardiology 03/01/21 04/17/89 Blood Bank Laboratory Technician Relationship Specialty Start Date End Date Zeny Lam APRN.THEATRICAL AGENT [facility] [place], [place] [address]70[address] PCP - General Internal Medicine 01/23/23 Mckinley Jaramillo DO [address] [place] [address] Consulting Hematology/Oncology 05/16/14 Mj Dos Santos MD [address] [place] [address] Crossbar Switch Adjuster Cardiology 03/01/21 04/17/89 Blood Bank Laboratory Technician Relationship Specialty Start Date End Date Zeny Lam APRN.THEATRICAL AGENT [address] [place] [address] PCP - General Internal Medicine 01/23/23 Mckinley Jaramillo DO [address] [place] [address] Consulting Hematology/Oncology 05/16/14 Mj Dos Santos MD [address] [place] [address] Crossbar Switch Adjuster Cardiology 03/01/21 04/17/89 Blood Bank Laboratory Technician Relationship Specialty Start Date End Date Zeny Lam APRN.THEATRICAL AGENT [address] [place] [address] PCP - General Internal Medicine 01/23/23 Mckinley Jaramillo DO [address] [place] [address] Consulting Hematology/Oncology 05/16/14 Mj Dos Santos MD [address] [place] [address] Crossbar Switch Adjuster Cardiology 03/01/21 04/17/89 Blood Bank Laboratory Technician Relationship Specialty Start Date End Date Zeny Lam APRN.THEATRICAL AGENT [facility] [place] [address] PCP - General Internal Medicine 01/23/23 Mckinley Jaramillo DO [address] [place] [address] Consulting Hematology/Oncology 05/16/14 Mj Dos Santos MD [address] [place] [address] Crossbar Switch Adjuster Cardiology 03/01/21 04/17/89 Blood Bank Laboratory Technician Relationship Specialty Start Date End Date Zeny Lam APRN.THEATRICAL AGENT [address] [place], [place] [address]691 PCP - General Internal Medicine 01/23/23 Mckinley Jaramillo DO [address] [place] [address] Consulting Hematology/Oncology 05/16/14 Mj Dos Santos MD [address] [place] [address] Crossbar Switch Adjuster Cardiology 03/01/21 04/17/89 Blood Bank Laboratory Technician Relationship Specialty Start Date End Date Zeny Lam APRN.THEATRICAL AGENT [address] [place] [address] PCP - General Internal Medicine 01/23/23 Mckinley Jaramillo DO [address] [place] [address] Consulting Hematology/Oncology 05/16/14 Mj Dos Santos MD [address] [place] [address] Crossbar Switch Adjuster Cardiology 03/01/21 04/17/89 Blood Bank Laboratory Technician Relationship Specialty Start Date End Date Zeny Lam APRN.THEATRICAL AGENT [address] [place] [address] PCP - General Internal Medicine 01/23/23 Mckinley Jaramillo DO [address] [place] [address] Consulting Hematology/Oncology 05/16/14 Mj Dos Santos MD [address] [place] [address] Crossbar Switch Adjuster Cardiology 03/01/21 04/17/89 Blood Bank Laboratory Technician Relationship Specialty Start Date End Date Zeny Lam APRN.THEATRICAL AGENT [address] [place] [address] PCP - General Internal Medicine 01/23/23 Mckinley Jaramillo DO [address] [place] [address] Consulting Hematology/Oncology 05/16/14 Mj Dos Santos MD [address] [place] [address] Crossbar Switch Adjuster Cardiology 03/01/21 04/17/89 Blood Bank Laboratory Technician Relationship Specialty Start Date End Date Zeny Lam APRN.THEATRICAL AGENT [facility] [place] [address] PCP - General Internal Medicine 01/23/23 Mckinlye Jaramillo DO [address] [place], [place] 996131 Consulting Hematology/Oncology 05/16/14 Mj Dos Santos MD [address] [place] [address] Crossbar Switch Adjuster Cardiology 03/01/21 04/17/89 Blood Bank Laboratory Technician Relationship Specialty Start Date End Date Zeny Lam APRN.THEATRICAL AGENT [address] [place] [address] PCP - General Internal Medicine 01/23/23 Mckinley Jaramillo DO [address] [place] [address] Consulting Hematology/Oncology 05/16/14 Mj Dos Santos MD [address] [place] [address] Crossbar Switch Adjuster Cardiology 03/01/21 04/17/89 Blood Bank Laboratory Technician Relationship Specialty Start Date End Date Zeny Lam APRN.THEATRICAL AGENT [address] [place] [address] PCP - General Internal Medicine 01/23/23 Mckinley Jaramillo DO [address] [place], [place] 570761 Consulting Hematology/Oncology 05/16/14 Mj Dos Santos MD [address] [place] [address] Crossbar Switch Adjuster Cardiology 03/01/21 04/17/89 Blood Bank Laboratory Technician Relationship Specialty Start Date End Date Zeny Lam APRN.THEATRICAL AGENT [address] [place] [address] PCP - General Internal Medicine 01/23/23 Mckinley Jaramillo DO [address] [place] [address] Consulting Hematology/Oncology 05/16/14 Mj Dos Santos MD [address] [place] [address] Crossbar Switch Adjuster Cardiology 03/01/21 04/17/89 Blood Bank Laboratory Technician Relationship Specialty Start Date End Date Zeny Lam APRN.THEATRICAL AGENT [facility] [place] [address] PCP - General Internal Medicine 01/23/23 Mckinley Jaramillo DO [address] [place] [address] Consulting Hematology/Oncology 05/16/14 Mj Dos Santos MD [address] [place], [place] 012[address] Crossbar Switch Adjuster Cardiology 03/01/21 04/17/89 Blood Bank Laboratory Technician Relationship Specialty Start Date End Date Zeny Lam APRN.THEATRICAL AGENT [address] [place] [address] PCP - General Internal Medicine 01/23/23 Mckinley Jaramillo DO [address] [place] [address] Consulting Hematology/Oncology 05/16/14 Mj Dos Santos MD [address] [place] [address] Crossbar Switch Adjuster Cardiology 03/01/21 04/17/89 Blood Bank Laboratory Technician Relationship Specialty Start Date End Date Zeny Lam APRN.THEATRICAL AGENT [address] [place] [address] PCP - General Internal Medicine 01/23/23 Mckinley Jaramillo DO [address] [place] [address] Consulting Hematology/Oncology 05/16/14 Mj Dos Santos MD [address] [place], [place] 0473095 Crossbar Switch Adjuster Cardiology 03/01/21 04/17/89 Blood Bank Laboratory Technician Relationship Specialty Start Date End Date Zeny Lam APRN.THEATRICAL AGENT [address] [place] [address] PCP - General Internal Medicine 01/23/23 Mckinley Jaramillo DO [address] [place] [address] Consulting Hematology/Oncology 05/16/14 Mj Dos Santos MD [address] [place] [address] Crossbar Switch Adjuster Cardiology 03/01/21 04/17/89 Blood Bank Laboratory Technician Relationship Specialty Start Date End Date Zeny Lam APRN.THEATRICAL AGENT [address] [place], [place] 648081 PCP - General Internal Medicine 01/23/23 Mckinley Jaramillo DO [address] [place], [place] 847171 Consulting Hematology/Oncology 05/16/14 Mj Dos Santos MD [address] [place] [address] Crossbar Switch Adjuster Cardiology 03/01/21 04/17/89 Blood Bank Laboratory Technician Relationship Specialty Start Date End Date Zeny Lam AIR CONDITIONING SUPERVISOR.THEATRICAL AGENT [address] [place] [address] PCP - General Internal Medicine 01/23/23 Mckinley Jaramillo DO [address] [place] [address] Consulting Hematology/Oncology 05/16/14 Mj Dos Santos MD [address] [place] [address] Crossbar Switch Adjuster Cardiology 03/01/21 04/17/89 Blood Bank Laboratory Technician Relationship Specialty Start Date End Date Zeny Lam APRN.THEATRICAL AGENT [address] [place] [address] PCP - General Internal Medicine 01/23/23 Mckinley Jaramillo DO [address] [place] [address] Consulting Hematology/Oncology 05/16/14 Mj Dos Santos MD [address] [place] [address] Crossbar Switch Adjuster Cardiology 03/01/21 04/17/89 Blood Bank Laboratory Technician Relationship Specialty Start Date End Date Zeny Lam APRN.THEATRICAL AGENT [facility] [place] [address] PCP - General Internal Medicine 01/23/23 Mckinley Jaramillo DO [address] [place], [place] 443591 Consulting Hematology/Oncology 05/16/14 Mj Dos Santos MD [address] [place] [address] Crossbar Switch Adjuster Cardiology 03/01/21 04/17/89 Blood Bank Laboratory Technician Relationship Specialty Start Date End Date Zeny Lam APRN.THEATRICAL AGENT [address] [place] [address] PCP - General Internal Medicine 01/23/23 Mckinley Jaramillo DO [address] [place] [address] Consulting Hematology/Oncology 05/16/14 Mj Dos Santos MD [address] [place], [place] 8765195 Crossbar Switch Adjuster Cardiology 03/01/21 04/17/89 Blood Bank Laboratory Technician Relationship Specialty Start Date End Date Zeny Lam APRN.THEATRICAL AGENT [address] [place], [place] 829451 PCP - General Internal Medicine 01/23/23 Mckinley Jaramillo DO [address] [place] [address] Consulting Hematology/Oncology 05/16/14 Mj Dos Santos MD [address] [place] [address] Crossbar Switch Adjuster Cardiology 03/01/21 04/17/89 Blood Bank Laboratory Technician Relationship Specialty Start Date End Date Zeny Lam APRN.THEATRICAL AGENT [address] [place] [address] PCP - General Internal Medicine 01/23/23 Mckinley Jaramillo DO [address] [place] [address] Consulting Hematology/Oncology 05/16/14 Mj Dos Santos MD [address] [place], [place] 367[address]95 Crossbar Switch Adjuster Cardiology 03/01/21 04/17/89 Blood Bank Laboratory Technician Relationship Specialty Start Date End Date Zeny Lam APRN.THEATRICAL AGENT [address] [place] [address] PCP - General Internal Medicine 01/23/23 Mckinley Jaramillo DO [address] [place] [address] Consulting Hematology/Oncology 05/16/14 Mj Dos Santos MD [address] [place] [address] Crossbar Switch Adjuster Cardiology 03/01/21 04/17/89 Blood Bank Laboratory Technician Relationship Specialty Start Date End Date Zeny Lam AIR CONDITIONING SUPERVISOR.THEATRICAL AGENT [facility] [place], [place] [address] PCP - General Internal Medicine 01/23/23 Mckinley Jaramillo DO [address] [place], [place] 455[address] Consulting Hematology/Oncology 05/16/14 Mj Dos Santos MD [address] [place] [address] Crossbar Switch Adjuster Cardiology 03/01/21 04/17/89 Blood Bank Laboratory Technician Relationship Specialty Start Date End Date Zeny Lam, AIR CONDITIONING SUPERVISOR.THEATRICAL AGENT [address] [place] [address] PCP - General Internal Medicine 01/23/23 Mckinley Jaramillo DO [address] [place] [address] Consulting Hematology/Oncology 05/16/14 Mj Dos Santos MD [address] [place] [address] Crossbar Switch Adjuster Cardiology 03/01/21 04/17/89 Blood Bank Laboratory Technician Relationship Specialty Start Date End Date Zeny Lam APRN.THEATRICAL AGENT [address] [place], [place] 945841 PCP - General Internal Medicine 01/23/23 Mckinley Jaramillo DO [address] [place], [place] 833521 Consulting Hematology/Oncology 05/16/14 Mj Dos Santos MD [address] [place] [address] Crossbar Switch Adjuster Cardiology 03/01/21 04/17/89 Blood Bank Laboratory Technician Relationship Specialty Start Date End Date Zeny Lam APRN.THEATRICAL AGENT [address] [place] [address] PCP - General Internal Medicine 01/23/23 Mckinley Jaramillo DO [address] [place] [address] Consulting Hematology/Oncology 05/16/14 Mj Dos Santos MD [address] [place] [address] Crossbar Switch Adjuster Cardiology 03/01/21 04/17/89 Blood Bank Laboratory Technician Relationship Specialty Start Date End Date Zeny Lam APRN.THEATRICAL AGENT [address] [place] [address] PCP - General Internal Medicine 01/23/23 Mckinley Jaramillo DO [address] [place] [address] Consulting Hematology/Oncology 05/16/14 Mj Dos Santos MD [address] [place], [place] [id number] Crossbar Switch Adjuster Cardiology 03/01/21 04/17/89 Blood Bank Laboratory Technician Relationship Specialty Start Date End Date Zeny Lam APRN.THEATRICAL AGENT [address] [place], [place] 363361 PCP - General Internal Medicine 01/23/23 Mckinley Jaramillo DO [address] [place] [address] Consulting Hematology/Oncology 05/16/14 Mj Dos Santos MD [address] [place], [place] [id number] Crossbar Switch Adjuster Cardiology 03/01/21 04/17/89 Blood Bank Laboratory Technician Relationship Specialty Start Date End Date Zeny Lam APRN.THEATRICAL AGENT [address] [place] [address] PCP - General Internal Medicine 01/23/23 Mckinley Jaramillo DO [address] [place], [place] 517321 Consulting Hematology/Oncology 05/16/14 Mj Dos Santos MD [address] [place], [place] [id number] Crossbar Switch Adjuster Cardiology 03/01/21 04/17/89 Blood Bank Laboratory Technician Relationship Specialty Start Date End Date Zeny Lam APRN.THEATRICAL AGENT [address] [place], [place] 767991 PCP - General Internal Medicine 01/23/23 Mckinley Jaramillo DO [address] [facility] [place] [address] Consulting Hematology/Oncology 05/16/14 Mj Dos Santos MD [address] [place], [place] [id number] Crossbar Switch Adjuster Cardiology 03/01/21 04/17/89 Blood Bank Laboratory Technician Relationship Specialty Start Date End Date Zeny Lam APRN.THEATRICAL AGENT [facility] [place], [place] 824141 PCP - General Internal Medicine 01/23/23 Mckinley Jaramillo DO [address] [place], [place] 129551 Consulting Hematology/Oncology 05/16/14 Mj Dos Santos MD [address] [place] [address] Crossbar Switch Adjuster Cardiology 03/01/21 04/17/89 Blood Bank Laboratory Technician Relationship Specialty Start Date End Date Zeny Lam AIR CONDITIONING SUPERVISOR.THEATRICAL AGENT [address] [place], [place] 750151 PCP - General Internal Medicine 01/23/23 Mckinley Jaramillo DO [address] [place] [address] Consulting Hematology/Oncology 05/16/14 Mj Dos Santos MD [address] [place], [place] [id number] Crossbar Switch Adjuster Cardiology 03/01/21 04/17/89 Blood Bank Laboratory Technician Relationship Specialty Start Date End Date Zeny Lam APRN.THEATRICAL AGENT [address] [place], [place] 949741 PCP - General Internal Medicine 01/23/23 Mckinley Jaramillo DO [address] [place], [place] [phone] Consulting Hematology/Oncology 05/16/14 Mj Dos Santos MD [address] [place] [address] Crossbar Switch Adjuster Cardiology 03/01/21 04/17/89 Blood Bank Laboratory Technician Relationship Specialty Start Date End Date Zeny Lam APRN.THEATRICAL AGENT [address] [place] [address] PCP - General Internal Medicine 01/23/23 Mckinley Jaramillo DO [address] [place], [place] 049481 Consulting Hematology/Oncology 05/16/14 Mj Dos Santos MD [address] [place] [address] Crossbar Switch Adjuster Cardiology 03/01/21 04/17/89 Blood Bank Laboratory Technician Relationship Specialty Start Date End Date Zeny Lam APRN.THEATRICAL AGENT [address] [place], [place] 803391 PCP - General Internal Medicine 01/23/23 Mckinley Jaramillo DO [address] [place], [place] 129491 Consulting Hematology/Oncology 05/16/14 Mj Dos Santos MD [address] [place], [place] [phone] Crossbar Switch Adjuster Cardiology 03/01/21 04/17/89 Blood Bank Laboratory Technician Relationship Specialty Start Date End Date Zeny Lam APRN.THEATRICAL AGENT [address] [place], [place] 087121 PCP - General Internal Medicine 01/23/23 Mckinley Jaramillo DO [address] [place], [place] 840271 Consulting Hematology/Oncology 05/16/14 Mj Dos Santos MD [address] [place], [place] [phone] Crossbar Switch Adjuster Cardiology 03/01/21 04/17/89 Blood Bank Laboratory Technician Relationship Specialty Start Date End Date Zeny Lam AIR CONDITIONING SUPERVISOR.THEATRICAL AGENT [address] [place] [address] PCP - General Internal Medicine 01/23/23 Mckinley Jaramillo DO [address] [place], [place] 848221 Consulting Hematology/Oncology 05/16/14 Mj Dos Santos MD [address] [place], [place] [phone] Crossbar Switch Adjuster Cardiology 03/01/21 04/17/89 Blood Bank Laboratory Technician Relationship Specialty Start Date End Date Zeny Lam APRN.THEATRICAL AGENT [address] [place], [place] 360741 PCP - General Internal Medicine 01/23/23 Mckinley Jaramillo DO [address] [place] [address] Consulting Hematology/Oncology 05/16/14 Mj Dos Santos MD [address] [place], [place] 2799195 Crossbar Switch Adjuster Cardiology 03/01/21 04/17/89 Blood Bank Laboratory Technician Relationship Specialty Start Date End Date Zeny Lam APRN.THEATRICAL AGENT [facility] [place] [address] PCP - General Internal Medicine 01/23/23 Mckinley Jaramillo DO [address] [place], [place] 251181 Consulting Hematology/Oncology 05/16/14 Mj Dos Santos MD [address] [place], [place] 8560295 Crossbar Switch Adjuster Cardiology 03/01/21 04/17/89 Blood Bank Laboratory Technician Relationship Specialty Start Date End Date Franc Hills MD [address] [place], [place] 659901 PCP - General Internal Medicine 11/12/22 01/12/23 Zeny Lam APRN.THEATRICAL AGENT [address] [place], [place] 630741 PCP - General Internal Medicine 01/13/23 01/13/23 Franc Hills MD [address] [place], [place] 020851 PCP - General Internal Medicine 01/14/23 01/22/23 Zeny Lam APRN.THEATRICAL AGENT [address] [place], [place] 300661 PCP - General Internal Medicine 01/23/23 Mckinley Jaramillo DO [address] [place], [place] 495781 Consulting Hematology/Oncology 05/16/14 Mj Dos Santos MD [address] [place], [place] 2949195 Crossbar Switch Adjuster Cardiology 03/01/21 04/17/89 Blood Bank Laboratory Technician Relationship Specialty Start Date End Date Franc Hills MD [address] [place], [place] 735391 PCP - General 05/30/09 02/02/22 Mckinley Jaramillo DO [address] [place], [place] 240681 Consulting Hematology/Oncology 05/16/14 Blood Bank Laboratory Technician Relationship Specialty Start Date End Date Zeny Lam APRN.THEATRICAL AGENT [address] [place], [place] 017701 PCP - General Internal Medicine 01/23/23 Mckinley Jaramillo DO [address] [facility] [place], [place] [phone] Consulting Hematology/Oncology 05/16/14 Mj Dos Santos MD [address] [place], [place] 6224195 Crossbar Switch Adjuster Cardiology 03/01/21 04/17/89 Blood Bank Laboratory Technician Relationship Specialty Start Date End Date Zeny Lam APRN.THEATRICAL AGENT [address] [place], [place] 830711 PCP - General Internal Medicine 01/23/23 Mckinley Jaramillo DO [address] [place], [place] 241011 Consulting Hematology/Oncology 05/16/14 Mj Dos Santos MD [address] [place] [address] Crossbar Switch Adjuster Cardiology 03/01/21 04/17/89 Blood Bank Laboratory Technician Relationship Specialty Start Date End Date Zeny Lam APRN.THEATRICAL AGENT [facility]0 [place], [place] 018241 PCP - General Internal Medicine 01/23/23 Mckinley Jaramillo DO [address] [place], [place] 818961 Consulting Hematology/Oncology 05/16/14 Mj Dos Santos MD [address] [place], [place] 3690695 Crossbar Switch Adjuster Cardiology 03/01/21 04/17/89 Blood Bank Laboratory Technician Relationship Specialty Start Date End Date Zeny Lam APRN.THEATRICAL AGENT [address] [place], [place] 412391 PCP - General Internal Medicine 01/23/23 Mckinley Jaramillo DO [address] [place] [address] Consulting Hematology/Oncology 05/16/14 Mj Dos Santos MD [address] [place] [address] Crossbar Switch Adjuster Cardiology 03/01/21 04/17/89 Blood Bank Laboratory Technician Relationship Specialty Start Date End Date Zeny Lam APRN.THEATRICAL AGENT [address] [place] [address] PCP - General Internal Medicine 01/23/23 Mckinley Jaramillo DO [address] [place] [address] Consulting Hematology/Oncology 05/16/14 Mj Dos Santos MD [address] [place] [address] Crossbar Switch Adjuster Cardiology 03/01/21 04/17/89 Blood Bank Laboratory Technician Relationship Specialty Start Date End Date Zeny Lam APRN.THEATRICAL AGENT [address] [place] [address] PCP - General Internal Medicine 01/23/23 Mckinley Jaramillo DO [address] [place] [address] Consulting Hematology/Oncology 05/16/14 Mj Dos Santos MD [address] [place] [address] Crossbar Switch Adjuster Cardiology 03/01/21 04/17/89 Blood Bank Laboratory Technician Relationship Specialty Start Date End Date Zeny Lam APRN.THEATRICAL AGENT [address] [place] [address] PCP - General Internal Medicine 01/23/23 Mckinley Jaramillo DO [address] [place] [address] Consulting Hematology/Oncology 05/16/14 Mj Dos Santos MD [address] [place] [address] Crossbar Switch Adjuster Cardiology 03/01/21 04/17/89 Blood Bank Laboratory Technician Relationship Specialty Start Date End Date Zeny Lam APRN.THEATRICAL AGENT [address] [place] [address] PCP - General Internal Medicine 01/23/23 Mckinley Jaramillo DO [address] [place], [place] 432069 [phone] Consulting Hematology/Oncology 05/16/14 Mj Dos Santos MD [address] [place] [address] Crossbar Switch Adjuster Cardiology 03/01/21 04/17/89 Blood Bank Laboratory Technician Relationship Specialty Start Date End Date Zeny Lam APRN.THEATRICAL AGENT [address] [place] [address] PCP - General Internal Medicine 01/23/23 Mckinley Jaramillo DO [address] [place] [address] Consulting Hematology/Oncology 05/16/14 Mj Dos Santos MD [address] [place], [place] 8985095 Crossbar Switch Adjuster Cardiology 03/01/21 04/17/89 Blood Bank Laboratory Technician Relationship Specialty Start Date End Date Zeny Lam APRN.THEATRICAL AGENT [address] [place], [place] 810361 PCP - General Internal Medicine 01/23/23 Mckinley Jaramillo DO [address] [place], [place] 194261 Consulting Hematology/Oncology 05/16/14 Mj Dos Santos MD [address] [place] [address] Crossbar Switch Adjuster Cardiology 03/01/21 04/17/89 Blood Bank Laboratory Technician Relationship Specialty Start Date End Date Zeny Lam APRN.THEATRICAL AGENT [address] [place] [address] PCP - General Internal Medicine 01/23/23 Mckinley Jaramillo DO [address] [place] [address] Consulting Hematology/Oncology 05/16/14 Mj Dos Santos MD [address] [place], [place] 0400195 Crossbar Switch Adjuster Cardiology 03/01/21 04/17/89 Blood Bank Laboratory Technician Relationship Specialty Start Date End Date Zeny Lam APRN.THEATRICAL AGENT [address] [place], [place] 274931 PCP - General Internal Medicine 01/23/23 Mckinley Jaramillo DO [address] [place] [address] Consulting Hematology/Oncology 05/16/14 Mj Dos Santos MD [address] [place], [place] 2036495 Crossbar Switch Adjuster Cardiology 03/01/21 04/17/89 Blood Bank Laboratory Technician Relationship Specialty Start Date End Date Zeny Lam APRN.THEATRICAL AGENT [address] [place] [address] PCP - General Internal Medicine 01/23/23 Mckinley Jaramillo DO [address] [place] [address] Consulting Hematology/Oncology 05/16/14 Mj Dos Santos MD [address] [place] [address] Crossbar Switch Adjuster Cardiology 03/01/21 04/17/89 Blood Bank Laboratory Technician Relationship Specialty Start Date End Date Zeny Lam APRN.THEATRICAL AGENT [address] [place] [address] PCP - General Internal Medicine 01/23/23 Mckinley Jaramillo DO [address] [facility] [place] [address] Consulting Hematology/Oncology 05/16/14 Mj Dos Santos MD [address] [place], [place] 2447895 Crossbar Switch Adjuster Cardiology 03/01/21 04/17/89 Blood Bank Laboratory Technician Relationship Specialty Start Date End Date Zeny Lam APRN.THEATRICAL AGENT [address] [place] [address] PCP - General Internal Medicine 01/23/23 Mckinley Jaramillo DO [address] [place] [address] Consulting Hematology/Oncology 05/16/14 jM Dos Santos MD [address] [place] [address] Crossbar Switch Adjuster Cardiology 03/01/21 04/17/89 Blood Bank Laboratory Technician Relationship Specialty Start Date End Date Zeny Lam APRN.THEATRICAL AGENT [address] [place] [address] PCP - General Internal Medicine 01/23/23 Mckinley Jaramillo DO [address] [place], [place] 057351 Consulting Hematology/Oncology 05/16/14 Mj Dos Santos MD [address] [place] [address] Crossbar Switch Adjuster Cardiology 03/01/21 04/17/89 Blood Bank Laboratory Technician Relationship Specialty Start Date End Date Zeny Lam APRN.THEATRICAL AGENT [address] [place] [address] PCP - General Internal Medicine 01/23/23 Mckinley Jaramillo DO [address] [facility] [place] [address] Consulting Hematology/Oncology 05/16/14 Mj Dos Santos MD [address] [place], [place] 8221995 Crossbar Switch Adjuster Cardiology 03/01/21 04/17/89 Blood Bank Laboratory Technician Relationship Specialty Start Date End Date Zeny Lam APRN.THEATRICAL AGENT [address] [place], [place] 810081 PCP - General Internal Medicine 01/23/23 Mckinley Jaramillo DO [address] [place], [place] [phone] Consulting Hematology/Oncology 05/16/14 Mj Dos Santos MD [address] [place] [address] Crossbar Switch Adjuster Cardiology 03/01/21 04/17/89 Blood Bank Laboratory Technician Relationship Specialty Start Date End Date Zeny Lam APRN.THEATRICAL AGENT [address] [place] [address] PCP - General Internal Medicine 01/23/23 Mckinley Jaramillo DO [address] [place] [address] Consulting Hematology/Oncology 05/16/14 Mj Dos Santos MD [address] [place], [place] 6043895 Crossbar Switch Adjuster Cardiology 03/01/21 04/17/89 Blood Bank Laboratory Technician Relationship Specialty Start Date End Date Zeny Lam APRN.THEATRICAL AGENT [address] [place], [place] 370011 PCP - General Internal Medicine 01/23/23 Mckinley Jaramillo DO [address] [place] [address] Consulting Hematology/Oncology 05/16/14 Mj Dos Santos MD [address] [place] [address] Crossbar Switch Adjuster Cardiology 03/01/21 04/17/89 Blood Bank Laboratory Technician Relationship Specialty Start Date End Date Zeny Lam APRN.THEATRICAL AGENT [address] [place] [address] PCP - General Internal Medicine 01/23/23 Mckinley Jaramillo DO [address] [place] [address] Consulting Hematology/Oncology 05/16/14 Mj Dos Santos MD [address] [place] [address] Crossbar Switch Adjuster Cardiology 03/01/21 04/17/89 Blood Bank Laboratory Technician Relationship Specialty Start Date End Date Zeny Lam APRN.THEATRICAL AGENT [address] [place] [address] PCP - General Internal Medicine 01/23/23 Mckinley Jaramillo DO [address] [facility] [place] [address] Consulting Hematology/Oncology 05/16/14 Mj Dos Santos MD [address] [place] [address] Crossbar Switch Adjuster Cardiology 03/01/21 04/17/89 Blood Bank Laboratory Technician Relationship Specialty Start Date End Date Zeny Lam APRN.THEATRICAL AGENT [address] [place], [place] 705881 [phone] PCP - General Internal Medicine 01/23/23 Mckinley Jaramillo DO [address] [place] [address] Consulting Hematology/Oncology 05/16/14 Mj Dos Santos MD [address] [place], [place] [phone] Crossbar Switch Adjuster Cardiology 03/01/21 04/17/89 Blood Bank Laboratory Technician Relationship Specialty Start Date End Date Zeny Lam APRN.THEATRICAL AGENT [address] [place] [address] PCP - General Internal Medicine 01/23/23 Mckinley Jaramillo DO [address] [place], [place] 414252 [phone] Consulting Hematology/Oncology 05/16/14 Mj Dos Santos MD [address] [place] [address] Crossbar Switch Adjuster Cardiology 03/01/21 04/17/89 Blood Bank Laboratory Technician Relationship Specialty Start Date End Date Zeny Lam APRN.THEATRICAL AGENT [address] [place] [address] PCP - General Internal Medicine 01/23/23 Mckinley Jaramillo DO [address] [place] [address] Consulting Hematology/Oncology 05/16/14 Mj Dos Santos MD [address] [place], [place] 3861295 Crossbar Switch Adjuster Cardiology 03/01/21 04/17/89 Blood Bank Laboratory Technician Relationship Specialty Start Date End Date Zeny Lam APRN.THEATRICAL AGENT [address] [place], [place] 198626 [phone] PCP - General Internal Medicine 01/23/23 Mckinley Jaramillo DO [address] [place], [place] 350802 [phone] Consulting Hematology/Oncology 05/16/14 Mj Dos Santos MD [address] [place] [address] Crossbar Switch Adjuster Cardiology 03/01/21 04/17/89 Blood Bank Laboratory Technician Relationship Specialty Start Date End Date Zeny Lam APRN.THEATRICAL AGENT [address] [place] [address] PCP - General Internal Medicine 01/23/23 Mckinley Jaramillo DO [address] [place] [address] Consulting Hematology/Oncology 05/16/14 jM Dos Santos MD [address] [place] [address] Crossbar Switch Adjuster Cardiology 03/01/21 04/17/89 Blood Bank Laboratory Technician Relationship Specialty Start Date End Date Zeny Lam APRN.THEATRICAL AGENT [address] [place] [address] PCP - General Internal Medicine 01/23/23 Mckinley Jaramillo DO [address] [place] [address] Consulting Hematology/Oncology 05/16/14 Mj Dos Santos MD [address] [place] [address] Crossbar Switch Adjuster Cardiology 03/01/21 04/17/89 Blood Bank Laboratory Technician Relationship Specialty Start Date End Date Zeny Lam APRN.THEATRICAL AGENT [address] [place] [address] PCP - General Internal Medicine 01/23/23 Mckinley Jaramillo DO [address] [place] [address] Consulting Hematology/Oncology 05/16/14 Mj Dos Santos MD [address] [place] [address] Crossbar Switch Adjuster Cardiology 03/01/21 04/17/89 Blood Bank Laboratory Technician Relationship Specialty Start Date End Date Zeny Lam APRN.THEATRICAL AGENT [address] [place] [address] PCP - General Internal Medicine 01/23/23 Mckinley Jaramillo DO [address] [place] [address] Consulting Hematology/Oncology 05/16/14 Mj Dos Santos MD [address] [place], [place] 0818495 Crossbar Switch Adjuster Cardiology 03/01/21 04/17/89 Blood Bank Laboratory Technician Relationship Specialty Start Date End Date Zeny Lam APRN.THEATRICAL AGENT [address] [place] [address] PCP - General Internal Medicine 01/23/23 Mckinley Jaramillo DO [address] [place] [address] Consulting Hematology/Oncology 05/16/14 Mj Dos Santos MD [address] [place], [place] [phone] Crossbar Switch Adjuster Cardiology 03/01/21 04/17/89 Blood Bank Laboratory Technician Relationship Specialty Start Date End Date Zeny Lam APRN.THEATRICAL AGENT [address] [place] [address] PCP - General Internal Medicine 01/23/23 Mckinley Jaramillo DO [address] [place] [address] Consulting Hematology/Oncology 05/16/14 Mj Dos Santos MD [address] [place] [address] Crossbar Switch Adjuster Cardiology 03/01/21 04/17/89 Blood Bank Laboratory Technician Relationship Specialty Start Date End Date Zeny Lam APRN.THEATRICAL AGENT [address] [place] [address] PCP - General Internal Medicine 01/23/23 Mckinley Jaramillo DO [address] [facility] [place] [address] Consulting Hematology/Oncology 05/16/14 Mj Dos Santos MD [address] [place] [address] Crossbar Switch Adjuster Cardiology 03/01/21 04/17/89 Blood Bank Laboratory Technician Relationship Specialty Start Date End Date Zeny Lam APRN.THEATRICAL AGENT [address] [place], [place] 780171 PCP - General Internal Medicine 01/23/23 Mckinley Jaramillo DO [address] [place], [place] 10336[address] Consulting Hematology/Oncology 05/16/14 Mj Dos Santos MD [address] [facility] [place] [address] Crossbar Switch Adjuster Cardiology 03/01/21 04/17/89 Team Status: Active Member Role/Relationship Status Dates Teri Gruber NP, LICENSED MENTAL HEALTH PROFESSIONAL-C Primary Care Provider Active Team Status: Inactive Member Role/Relationship Status Dates Dr. Danielle Han DO Emergency Provider Active Start: November 19, 2024 End: November 20, 2024 Teri Gruber NP, LICENSED MENTAL HEALTH PROFESSIONAL-C Primary Care Provider Active Start: November 19, 2024 End: November 20, 2024 Goals (unrecognized section and content) Goals may be documented in a n alternate sectionGoals may be documented in an alternate section (unrecognized sect ion and content) No Status Records FoundNo Status Records FoundNo Status Records FoundNo Status Records Found INFORMATION SOURCE (unrecogn ized section and content) DATE CREATED AUTHOR 11/13/2023 [facility] DATE CREATED AUTHOR AUTHOR'S ORGANIZ ATION 02/03/2024 [facility] DATE CREATED AUTHOR AUTHOR'S ORGANIZ ATION 08/20/2024 [facility] DATE CREATED AUTHOR AUTHOR'S ORGANIZ ATION 11/17/2024 [facility] FOR RECORDS PERTAINING TO PATIENTS WHO ARE [...] BE BASED ON THE PRIMARY CLINICAL RECORDS. [facility] [employer] [facility]. provides no warranty or guarantee of the accuracy or completeness of information in this document.
--- OUTSIDE RECORDS SUMMARY | 2024-11-20 09:51 | XMS RPT_ITS | CCD ---
Author Organization [facility] CliniSynm Care Team Providers Care Bartender Manager Name Role Phone Reinier LINCOLN, Franc Alegre Primary Care Provider Masci DO Mckinley A Unavailable Raya LINCOLN, Mj Unavailable Masckyung MEYERS, Mckinley A Unavailable Raya LINCOLN, Mj Unavailable Mani Edwards MD Primary Care Provider Reinier LINCOLN, Franc Alegre Primary Care Provider Clint MEYERS Mckinley A Unavailable Reinier LINCOLN, Franc Alegre Primary Care Provider Reinier LINCOLN, Franc Alegre Primary Care Provider [phone] Reinier LINCOLN, Franc Alegre Primary Care Provider [phone] Raya LINCOLN, Mj Unavailable Reinier LINCOLN, Franc Alegre Primary Care Provider [phone] Genaro VINYL CUTTER.Zeny GARZA Primary Care Provider [phone] Genaro VINYL CUTTER.Zeny GARZA Primary Care Provider [phone] Reinier LINCOLN, Franc Alegre Primary Care Provider [phone] Genaro VINYL CUTTER.KAYLA, Zeny Primary Care Provider [phone] Reinier LINCOLN, Franc Alegre Primary Care Provider Reinier LINCOLN, Franc Alegre Primary Care Provider Lisandro Mora Attending Unavailable Franc [place] Primary Care Unavailable Lisandro Mora Attending Unavailable Genaro BREAKDOWN MILL OPERATOR, Zeny Primary Care Unavailable Genaro VINYL CUTTER.KAYLA, Zeny Knowles Primary Care Provider Genaro VINYL CUTTER.INFO SPECIALIST, Zeny Primary Care Provider [phone] WALT YANG Attending Unavailable GENARO, ZENY Referring [...] Unavailable Dr. Danielle Han DO Emergency Provider [facility] BREAKDOWN MILL OPERATOR-C, [facility] Primary Care Provider Allergies Allergy Classification Reported Allergen(s) Allergy Type Date of Onset Reaction(s) Facility Anti-Epileptic Agents (1 source) gabapentin Drug Allergy 3 Intolerance [facility] Cephalosporins (antibiotic) (1 source) Cephalexin Drug Allergy 5 Rash [facility] cyclobenzaprine (1 source) cyclobenzaprine Drug Allergy 3 Other: See Comments [facility] Work Phone: (20 sources) Cephalexin; Translations: [CEPHALEXIN] Drug Allergy 5 Rash [facility] (20 sources) Warfarin Drug Allergy 0 Rash [facility] (20 sources) cyclobenzaprine; Translations: [CYCLOBENZAPRINE] Drug Allergy 3 Other: See Comments [facility] Work Phone: (20 sources) gabapentin; Translations: [GABAPENTIN] Drug Allergy 3 Intolerance [facility] Work Phone: Comment on above: dizziness (1 source) Cephalexin Drug Allergy 4 [facility] (1 source) cyclobenzaprine Drug Allergy 4 [facility] (1 source) gabapentin Drug Allergy 4 [facility] Medications Current Medications Medication Drug [...] 06/10/2023 Discontinued take 2000 [IU] by mo [facility] once daily ascorbic acid (VITAMIN C ORAL) Take 2,000 Units by mouth once daily. 0 Active Comment on above: [facility] Take 2,000 Units [...] Comment on above: Take 1 tablet by [facility] once daily. Take by mouth. benoxinate hydrochloride [...] 2 tablets by mouth once daily ACID DATA SYSTEMS MANAGER 20 mg tablet Take 2 tablets by [...] Comment on above: Take 1 capsule by [facility] twice daily. Take 1 tablet by kandi [...] Start: 12-16-2018 take 4 tablets by mo [facility] at bedtime Rosuvastatin (Crestor) 10 mg tablet Active 40 mg PO AT BEDTIME December 16, 2018 4:22pm Start: 12-16-2018 take 2 tablets by mo [facility] at bedtime Rosuvastatin (Crestor) 10 mg tablet Active 20 MG PO AT BEDTIME December 16, 2018 3:22pm Start: 11-24-2018 End: 12-16-2018 take 1 tablet by mouth once daily Rosuvastatin 10 MG tablet Discontinued 10 mg PO DAILY November 24, 2018 12:00am December 16, 2018 4:32pm Comment on above: Take 1 tablet by [facility] once daily. Take 2 tablets by mo [facility] once daily. tropicamide 10 mg/ml ophthalmic solution [...] 1 tablet by mouth once daily Ca-D3-Mag Vu-Ytcd-Noy-Vic-Bor 1 EACH tablet,chewable Discontinued 1 NMA PO DAILY January 12, 2019 12:00am May 14, 2023 1:11pm Start: 01-12-2019 Ca-D3-Mag Ox-Z heg-Lzf-Losw-Bor Active 1 EACH PO DAILY January 11, [...] eye(s) four times daily as needed Peg 204-Okzdusymurdu-Fmqtjxjn 15 ML drops Discontinued 2 NMA OP [...] once daily. Take 2 tablets by mo [facility] once daily. hydrOXYzine hydrochloride 25 mg oral [...] on above: Take 1 capsule by mo [facility] once daily. melatonin 10 mg oral [...] PRIOR TO A MEAL polyethylene glycol 3350 75881 mg powder for oral solution (20 sources) [...] and take as directed. polyethylene glycol 3350 870712 mg / potassium chloride 2970 mg / sodium bicarbonate 6740 mg / sodium chloride 5860 mg / sodium sulfate 55107 mg powder for oral solution (1 source) [...] 1 capsule by mouth twice daily [facility] [place] 450 mg capsule Discontinued 450 mg PO TWICE A DAY December 16, 2018 4:25pm November 20, 2024 1:29am Start: 12-16-2018 take 450 mg by mouth twice daily [facility] [place] Active 450 MG PO TWICE A DAY December 16, 2018 3:25pm Start: 12-16-2018 take 450 mg by mouth twice daily [facility] [place] Active 450 MG PO TWICE A DAY December 16, 2018 4:25pm Start: 05-08-2014 End: 12-16-2018 take 1 capsule by mouth twice daily [facility] [place] 450 MG capsule Discontinued 450 mg PO TWICE A DAY May 08, 2014 1:00am December 16, 2018 4:32pm Start: 05-08-2014 End: 12-16-2018 take 450 mg by mouth twice daily [facility] [place] Discontinued 450 MG PO TWICE A DAY May 08, 2014 12:00am December 16, 2018 3:32pm Start: 05-08-2014 End: 12-16-2018 take 450 mg by mouth twice daily [facility] [place] Discontinued 450 MG PO TWICE A DAY [...] sources) Long-term current use of anticoagulant; Translations: [FCI (current) use of anticoagulants] Onset: 09-15-2018 Episodic [...] 07-28-2024 05-19-2024 Episodic Other aftercare (1 source) [facility]CI (current) use of anticoagulants; Translations: [FCI (current) use of anticoagulants] Onset: 10-26-2019 Episodic [...] Auto (Unsp spec) [#/Vol] 1.61 10*3/uL 0.83-4.51 [facility] Absolute neutrophil countOrd ered By: Danielle Han on 11-20-2024 Neutrophils (Bld) [#/Vol] 11.1 10*3/uL High 2.0-7.7 [facility] Anion gap in Serum or Plasma Ordered By: Danielle Han on 11-20-2024 Anion gap [Moles/Vol] 15 mmol/L 5-15 [facility] Automated lymphocyte count a s percentage of total leukocytesOrdered By: Danielle Han on 11-20-2024 Lymphocytes/100 WBC Auto (Unsp spec) 12.2 % Low 19-41 [facility] BUN/creatinine ratioOrdered By: Danielle Han on 11-20-2024 Urea nitrogen/Creatinine [Mass ratio] 17.4 mg/mg 10-20 [facility] Basophil percentageOrdered B y: Danielle Han on 11-20-2024 Basophils/100 WBC (Bld) 0.4 % 0-1 [facility] Carbon dioxide, total [Moles /volume] in Central venous bloodOrdered By: Danielle Han on 11-20-2024 CO2 [Moles/Vol] 15.4 mmol/L Low 21.0-32.0 [facility] Chloride assayOrdered By: Leroy Han on 11-20-2024 Chloride [Moles/Vol] 110 mmol/L High 98-108 [facility] Eosinophil percentageOrdered By: Danielle Han on 11-20-2024 Eosinophils/100 WBC (Bld) 0.1 % 0-5 [facility] Erythrocyte distribution wid th ratioOrdered By: Danielle Han on 11-20-2024 Erythrocyte distribution width (RBC) [Ratio] 14.2 % 11.6-14.6 [facility] Erythrocyte distribution wid th standard deviationOrdered By: Danielle Han on 11-20-2024 Erythrocyte distribution width (RBC) [Ratio] 48.7 fl High 35.1-43.9 [facility] Glomerular filtration rate ( GFR) estimation/1.73 sq m using serum, plasma, or whole bOrdered By: Danielle Han on 11-20-2024 GFR/1.73 sq M.predicted among non-blacks MDRD (S/P/Bld) [Vol rate/Area] 88 mL/min/{1.73_m2} >60 [facility] Comment on above: mL/min/1.73m2 CKD-EP I Creatinine Equation (2020) Hematocrit Auto (Bld) [Volum e fraction]Ordered By: Danielle Han on 11-20-2024 Hematocrit (Bld) [Volume fraction] 50.1 % 40-54 [facility] Hemoglobin measurementOrdere d By: Danielle Han on 11-20-2024 Hemoglobin (Bld) [Mass/Vol] 16.8 g/dL High 13.0-16.5 [facility] Immature granulocytes/100 WB C Auto (Bld)Ordered By: Danielle Han on 11-20-2024 Immature granulocytes/100 WBC (Bld) 0.300 % 0.0-0.9 [facility] Comment on above: IG% - Immature Granu locytes (promyelocytes, myelocytes and metamyelocytes) > 1% indicates that a LEFT SHIFT is Present. International normalized rat io (INR) calculationOrdered By: Danielle Han on 11-20-2024 INR Coag (Bld) [Relative time] 2.0 {INR} [facility] MCV (mean corpuscular volume ) determinationOrdered By: Danielle Han on 11-20-2024 MCV (RBC) [Entitic vol] 94.2 fL High 80-94 [facility] Mean corpuscular hemoglobin (MCH) determinationOrdered By: Danielle Han on 11-20-2024 MCH (RBC) [Entitic mass] 31.6 pg 27.0-32.0 [facility] Mean corpuscular hemoglobin concentration (MCHC) determinationOrdered By: Danielle Han on 11-20-2024 MCHC (RBC) [Mass/Vol] 33.5 g/dL 32-36 [facility] Mean platelet volume determi nationOrdered By: Danielle Han on 11-20-2024 Platelet mean volume (Bld) [Entitic vol] 10.4 fL 6.2-12.0 [facility] Monocyte percentageOrdered B y: Danielle Han on 11-20-2024 Monocytes/100 WBC (Bld) 3.3 % 0-10 [facility] Neutrophil percentageOrdered By: Danielle Han on 11-20-2024 Neutrophils/100 WBC (Bld) 83.7 % High 47-70 [facility] Nucleated red blood cell per centageOrdered By: Danielle Han on 11-20-2024 Nucleated RBC/100 WBC (Bld) [Ratio] 0 % 0-5 [facility] Platelet countOrdered By: Leroy Han on 11-20-2024 Platelets (Bld) [#/Vol] 155 10*3/uL 150-450 [facility] Potassium measurement (mass/ volume)Ordered By: Danielle Han on 11-20-2024 Potassium (Unsp spec) [Mass/Vol] 4.6 mmol/L 3.3-5.1 [facility] Comment on above: Hemolysis present, R esults could be affected. Prothrombin timeOrdered By: Danielle Han on 11-20-2024 PT Coag (PPP) [Time] 22.7 s High 11.7-14.9 [facility] RBC Auto (Bld) [#/Vol]Ordere d By: Danielle Han on 11-20-2024 RBC (Bld) [#/Vol] 5.32 10*6/uL 4.6-6.2 [facility] Serum creatinine measurement (mass/volume)Ordered By: Danielle Han on 11-20-2024 Creatinine [Mass/Vol] 0.83 mg/dL 0.70-1.20 [facility] Serum glucose measurement (m ass/volume)Ordered By: Danielle Han on 11-20-2024 Glucose [Mass/Vol] 104 mg/dL High 70-99 [facility] Serum or plasma calcium wilmar urement (mass/volume)Ordered By: Danielle Han on 11-20-2024 Calcium [Mass/Vol] 9.1 mg/dL 7.6-11.0 [facility] Serum or plasma urea nitroge n measurement (mass/volume)Ordered By: Danielle Han on 11-20-2024 Urea nitrogen [Mass/Vol] 15 mg/dL 4-19 [facility] Sodium levelOrdered By: Lacy Han on 11-20-2024 Sodium [Moles/Vol] 140 mmol/L 133-145 [facility] White blood cell (WBC) count Ordered By: Danielle Han on 11-20-2024 WBC (Bld) [#/Vol] 13.2 10*3/uL High 4.4-11.0 [facility] Eosinophils Auto (Bld) [#/Vo l]on 10-20-2024 Eosinophils (Bld) [#/Vol] 0.16 10*3/uL [facility] Interpretation and review of laboratory results Normal [facility] OCT MACULA CIRRUS OU (BOTH E YES)on 08-11-2024 [facility] Radiology Study observation (narrative) [facility] CNOVon 08-09-2024 CNOV Office Visit (WELLME ) ALEX BROOKS ([id number]) 1945 [facility] Date Time Provider Department 08/09/24 2:00 [...] reducing alcohol intake. He was living in [facility] since he was born and moved to [place] for job-related which he regret as business environment and living was not the same. About 10 year ago, he moved to [place] and that was when he started experiencing exacerbation of all the condition. 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 Normal [facility] NITRIC OXIDE, EXHALEDon 05-0 Mariana Barbosa, DORETHA [...] DATE: August 04, 2024 TIME: 12:34 PM [facility] CNOVon 07-26-2024 CNOV Office Visit (ARUNA ) ALEX BROOKS ([id number]) 1945 M [facility] Date Time Provider Department 07/26/24 2:30 [...] reducing alcohol intake. He was living in [facility] since he was born and moved to [place] for job-related which he regret as business environment and living was not the same. About 10 year ago, he moved to [place] and that was when he started experiencing exacerbation of all the condition. 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 [facility] Heart Perfusion W stress and W radionuclide Nataliia 07-18-2024 * * *Final Report* * * DATE OF EXAM: Jul 18 2024 9:55AM [address] CARDIAC PERF STRESS/PHARM / PROCEDURE REASON: Shortness of breath * * * * Physician Interpretation * * * * Stress Momd Teacher Report: [facility] Date of service: 07/18/2024 7:00:09 AM Supervising [...] administered radiotracer and doses below. [facility] Date of service: 07/18/2024 7:00:09 AM Ordering [...] * -------- Stress ECG Report: [facility] Date of service: 07/18/2024 7:00:09 AM Ordering physician: TERI GRUBER insurance follow up specialist: Tawana Owusu RN Interpreting physician: Izabella [...] 144/70 mmHg. The double product achieved was [id number]. Medications: Last Used NIFEDIPINE 2 Days Resting ECG: Normal Sinus Rhythm and Complete LBBB Symptoms at rest: No symptoms Pharamcologic Protocol: Regadenoson Stress Exercise Table: +-----+---+---+---+ Stage HR SYS EZEKIEL +-----+---+---+---+ 1 83 +-----+---+---+---+ 2 (more content not included)... DIVISION OF RADIOLOGY Provider, [facility] - 07/18/2024 * * *Final Report* * * DATE OF EXAM: Jul 18 2024 9:55AM [facility] 0006 - [place] CARDIAC PERF STRESS/PHARM / PROCEDURE REASON: Shortness of breath * * * * Physician Interpretation * * * * Stress Momd Teacher Report: [facility] Date of service: 07/18/2024 7:00:09 AM Supervising [...] administered radiotracer and doses below. [facility] Date of service: 07/18/2024 7:00:09 AM Ordering [...] * -------- Stress ECG Report: [facility] Date of service: 07/18/2024 7:00:09 AM Ordering physician: TERI GRUBER insurance follow up specialist: Tawana Owusu RN Interpreting physician: Izabella [...] 144/70 mmHg. The double product achieved was [id number]. Medications: Last Used NIFEDIPINE 2 Days Resting ECG: Normal Sinus Rhythm and Complete LBBB Symptoms at rest: No symptoms Pharamcologic Protocol: Regadenoson Stress Exercise Table: +-----+---+---+---+ Stage HR SYS EZEKIEL +-----+---+---+---+ 1 83 +-----+---+---+---+ 2 103 158 76 +-----+---+---+---+ 3 98 +-----+---+---+---+ 4 96 144 70 +-----+---+---+---+ +-----+--+---+---+ HR SYS EZEKIEL +-----+--+---+---+ Final 96 144 70 +-----+--+---+---+ +------+-------- (more content not included)... [facility] Radiology Study observation (narrative) Brooke rojas [facility] Heart Perfusion W stress and W radionuclide IVOrdered By: Ccf Provider on 07-18-2024 [facility] PT panel Coag (PPP)Ordered B y: Cheyenne Obrien on 03-24-2024 INR Coag (PPP) [Relative time] 2.2 {INR} High 0.9 - 1.3 [facility] Comment on above: Vitamin K Antagonist (VKA) Therapeutic Range: INR 2 to 3 (Target INR of 2.5) Note: For patients treated with VKA drugs, such as warfarin, the [place] College [employer]icians 2012 Guideline recommends [...] Chest 2012, 141:7S-47S Lin RA, et al. [facility] 2017, 70: 252-289 Interpretation and review of laboratory results Abnormal [facility] PT Coag (PPP) [Time] 21.5 s High [facility] PT panel Coag (PPP)on 2023 INR Coag (Bld) [Relative time] 2.5 (ext) 2.0 - 3.0 [facility] CT Head WO contraston 2023 IMPRESSION: No acute intracranial abnormality or significant change from 03/07/2019 Engineer Technical Staff: BIRD Transcribe Date/Time: Feb 29 2024 12:38P Dictated by : GAYLE MOLINA DO This examination was interpreted and the report reviewed and electronically signed by: GAYLE MOLINA DO on Feb 29 2024 12:43PM [facility] DIVISION OF RADIOLOGY * * *Final Report* * * DATE OF EXAM: Feb 29 2024 12:00PM [facility] 0504 - CT BRAIN WO IVCON [...] pseudophakia. DIVISION OF RADIOLOGY Provider, Macey Stan [facility] - 02/29/2024 * * *Final Report* * * DATE OF EXAM: Feb 29 2024 12:00PM [facility] 0504 - CT BRAIN WO IVCON [...] intracranial abnormality or significant change from 03/07/2019 Engineer Technical Staff: BIRD Transcribe Date/Time: Feb 29 2024 12:38P Dictated by : GAYLE MOLINA DO This examination was interpreted and the report reviewed and electronically signed by: GAYLE MOLINA DO on Feb 29 2024 12:43PM [facility] Radiology Study observation (narrative) Brooke rojas [facility] CT Head WO contrastOrdered B y: Ccf Provider on 02-29-2024 [facility] 12 Lead EKGon 01-08-2024 12 Lead EKG [facility] Cardiovascular Services [address] [place] [address] 12 Lead EKG 01/08/24 1906 MR#: [id number] Acct: [id number] Name: ALEX BROOKS Rep #: [id number] : 1945 78 From: Aidan Atkinson MD [...] Abnormal ECG Confirmed by CHRISTINE LINCOLN, AIDAN ([id number]), editorial project manager GEGE TURPIN ([id number]) on 01/12/2024 10:11:14 AM Referred By: Confirmed By:AIDAN ATKINSON MD 01/12/24 1011 Date Aidan Atkinson MD CC: CHRISTAL Lam; Dr. Lisandro Moar MD Signed Normal [facility] BNP,B-Type NATRIURETIC PEPTI Uma 01-08-2024 Natriuretic peptide B (Bld) [Mass/Vol] 17.2 pg/mL Normal 0-100 [facility] Comment on above: Performed By: #### L [id number] ####[facility] [address] [place], [address] Basic Metabolic Profile (BMP )on 01-08-2024 BUN/CRE 28.9 RATIO High 10-20 [facility] Comment on above: Order Comment: 'TROP ' Serial specimen #1, #2 or #3: 1 Performed By: #### L 500.2500, L100.0100, L501.4020 #### [facility] Laboratory [address] [place], [address] CA,Total 9.3 mg/dL Normal 8.5-10.1 [facility] Comment on above: Order Comment: 'TROP ' Serial specimen #1, #2 or #3: 1 Performed By: #### L 500.2500, L100.0100, L501.4020 #### [facility] [address] [place], [address] Chloride [Moles/Vol] 114 mmol/L High 98-107 [facility] Comment on above: Order Comment: 'TROP ' Serial specimen #1, #2 or #3: 1 Performed By: #### L 500.2500, L100.0100, L501.4020 #### [facility] [address] [place], [address] CO2 [Moles/Vol] 24.0 mmol/L Normal 21.0-32.0 [facility] Comment on above: Order Comment: 'TROP ' Serial specimen #1, #2 or #3: 1 Performed By: #### L 500.2500, L100.0100, L501.4020 #### [facility] [address] [place], [address] Creatinine [Mass/Vol] 0.76 mg/dL Normal 0.70-1.30 [facility] Comment on above: Order Comment: 'TROP ' Serial specimen #1, #2 or #3: 1 Result Comment: The validity of the calculated GFR GFRAA in patients over 70 years has not been determined. Clinical correlation is essential. Performed By: #### L 500.2500, L100.0100, L501.4020 #### [facility] [address] [place], [address] ECRCL 83.23 ml/min Normal [facility] Comment on above: Order Comment: 'TROP ' Serial specimen #1, #2 or #3: 1 Performed By: #### L 500.2500, L100.0100, L501.4020 #### [facility] [address] [place], [address] EST GFR - AA 127 mL/min Normal >60 [facility] Comment on above: Order Comment: 'TROP ' Serial specimen #1, #2 or #3: 1 Result Comment: Afri can Citizen [place] GFR Calc Performed By: #### L 500.2500, L100.0100, L501.4020 #### [facility] [address] [place], [address] GAP 4 Low 5-15 [facility] Comment on above: Order Comment: 'TROP ' Serial specimen #1, #2 or #3: 1 Performed By: #### L 500.2500, L100.0100, L501.4020 #### [facility] [address] [place], [address] GFR/1.73 sq M.predicted among non-blacks MDRD (S/P/Bld) [Vol rate/Area] 105 mL/min/{1.73_m2} Normal >60 [facility] Comment on above: Order Comment: 'TROP ' Serial specimen #1, #2 or #3: 1 Result Comment: Non- GFR Calc Performed By: #### L 500.2500, L100.0100, L501.4020 #### [facility] [address] [place], [address] Glucose [Mass/Vol] 124 mg/dL High 74-106 [facility] Comment on above: Order Comment: 'TROP ' Serial specimen #1, #2 or #3: 1 Result Comment: Fast ing Glucose result from 100 to 125 mg/dL suggests IMPAIRED HOMEOSTASIS per A.D.A. criteria. Performed By: #### L 500.2500, L100.0100, L501.4020 #### [facility] [address] [place], [address] Potassium [Moles/Vol] 4.1 mmol/L Normal 3.5-5.1 [facility] Comment on above: Order Comment: 'TROP ' Serial specimen #1, #2 or #3: 1 Performed By: #### L 500.2500, L100.0100, L501.4020 #### [facility] [address] [place], [address] Sodium [Moles/Vol] 143 mmol/L Normal 136-145 [facility] Comment on above: Order Comment: 'TROP ' Serial specimen #1, #2 or #3: 1 Performed By: #### L 500.2500, L100.0100, L501.4020 #### [facility] [address] [place], [address] Urea nitrogen [Mass/Vol] 22 mg/dL High 7-18 [facility] Comment on above: Order Comment: 'TROP ' Serial specimen #1, #2 or #3: 1 Performed By: #### L 500.2500, L100.0100, L501.4020 #### [facility] [address] [place], [address] CBC W/Diff, Automatedon 10-0 4-2023 Absolute Lymph 2.99 X10 3/uL Normal 0.83-4.51 [facility] Comment on above: Performed By: #### L 500.2500, L100.0100, L501.4020 #### [facility] [address] [place], [address] Absolute Neut 4.1 X10 3/uL Normal 2.0-7.7 [facility] Comment on above: Performed By: #### L 500.2500, L100.0100, L501.4020 #### [facility] [address] [place], [address] Basophils/100 WBC (Bld) 0.7 % Normal 0-1 [facility] Comment on above: Performed By: #### L 500.2500, L100.0100, L501.4020 #### [facility] [address] [place], [address] Eosinophils/100 WBC (Bld) 3.6 % Normal 0-5 [facility] Comment on above: Performed By: #### L 500.2500, L100.0100, L501.4020 #### [facility] [address] [place], [address] Erythrocyte distribution width (RBC) [Ratio] 13.9 % Normal 11.6-14.6 [facility] Comment on above: Performed By: #### L 500.2500, L100.0100, L501.4020 #### [facility] [address] [place], [address] Hematocrit (Bld) [Volume fraction] 48.2 % Normal 40-54 [facility] Comment on above: Performed By: #### L 500.2500, L100.0100, L501.4020 #### [facility] [address] [place], [address] Hemoglobin (Bld) [Mass/Vol] 15.8 g/dL Normal 13.0-16.5 [facility] Comment on above: Performed By: #### L 500.2500, L100.0100, L501.4020 #### [facility] [address] [place], [address] IG% 0.100 Normal 0.0-0.9 [facility] Comment on above: Result Comment: IG% - Immature Granulocytes (promyelocytes, myelocytes and metamyelocytes) > 1% indicates that a LEFT SHIFT is Present. Performed By: #### L 500.2500, L100.0100, L501.4020 #### [facility] [address] [place], [address] Lymphocytes/100 WBC (Bld) 36.3 % Normal 19-41 [facility] Comment on above: Performed By: #### L 500.2500, L100.0100, L501.4020 #### [facility] [address] [place], [address] MCH (RBC) [Entitic mass] 30.9 pg Normal 27.0-32.0 [facility] Comment on above: Performed By: #### L 500.2500, L100.0100, L501.4020 #### [facility] [address] [place], [address] MCHC (RBC) [Mass/Vol] 32.8 g/dL Normal 32-36 [facility] Comment on above: Performed By: #### L 500.2500, L100.0100, L501.4020 #### [facility] [address] [place], [address] MCV (RBC) [Entitic vol] 94.1 fL High 80-94 [facility] Comment on above: Performed By: #### L 500.2500, L100.0100, L501.4020 #### [facility] [address] [place], [address] Monocytes/100 WBC (Bld) 9.1 % Normal 0-10 [facility] Comment on above: Performed By: #### L 500.2500, L100.0100, L501.4020 #### [facility] [address] [place], [address] Neutrophils/100 WBC (Bld) 50.2 % Normal 47-70 [facility] Comment on above: Performed By: #### L 500.2500, L100.0100, L501.4020 #### [facility] [address] [place], [address] Nucleated RBC (Bld) [#/Vol] 0 10*3/uL Normal 0-5 [facility] Comment on above: Performed By: #### L 500.2500, L100.0100, L501.4020 #### [facility] [address] [place], [address] Platelet mean volume (Bld) [Entitic vol] 9.1 fL Normal 6.2-12.0 [facility] Comment on above: Performed By: #### L 500.2500, L100.0100, L501.4020 #### [facility] [address] [place], [address] Platelets (Bld) [#/Vol] 210 10*3/uL Normal 150-450 [facility] Comment on above: Performed By: #### L 500.2500, L100.0100, L501.4020 #### [facility] [address] [place], [address] RBC (Bld) [#/Vol] 5.12 10*6/uL Normal 4.6-6.2 [facility] Comment on above: Performed By: #### L 500.2500, L100.0100, L501.4020 #### [facility] [address] [place], [address] RDW SD 48.1 fl High 35.1-43.9 [facility] Comment on above: Performed By: #### L 500.2500, L100.0100, L501.4020 #### [facility] [address] [place], [address] WBC (Bld) [#/Vol] 8.2 10*3/uL Normal 4.4-11.0 [facility] Comment on above: Performed By: #### L 500.2500, L100.0100, L501.4020 #### [facility] [address] [place], [address] Chest 1 View (Portable)on Chest 1 View (Portable) [facility] Imaging Services [address] [place] [address] Chest 1 View (Portable) MR#: [id number] Acct: [id number] Name: ALEX BROOKS Rep #: [id number] : 1945 M 78 From: Jake childress MD PCP: CHRISTAL Navarro Status: REG ER Study: Chest 1 View (Portable) Date of Exam: 01/08/24 Exam# [id number] Ordering Dr: Lisandro Mora MD [id number] STUDY: X-RAY CHEST REASON FOR EXAM: Male, [...] CC: CHRISTAL Lam; Dr. Lisandro Mora MD Engineer Technical Staff: Signed Normal [facility] Emergency Department Summary on 01-08-2024 Emergency Department Summary [facility] Medical Records Department [address] [place] [address] Emergency Department Summary 01/08/24 MR#: [id number] Acct: [id number] Name: ALEX BROOKS Rep #: [id number] : 1945 78 From: Lisandro Mora MD [...] no fevers or chills. No leg edema. [facility] Medical History Wears glasses Alcohol use [...] sore th (more content not included)... Normal [facility] L501.4020on 01-08-2024 TROPONIN-I HS 18 pg/mL Normal 3.0-78.0 [facility] Comment on above: Order Comment: 'TROP ' Serial specimen #1, #2 or #3: 1 Result Comment: Ángel zhu Note: New Test Units and Gender Specific Reference Ranges. For more information see Policy Stat Procedure [place] High Sensitivity Troponin (TNIH) and attachments. Performed By: #### L 500.2500, L100.0100, L501.4020 #### [facility] [address] [place], [address] Prothrombin Time w/INRon INR Coag (PPP) [Relative time] 2.2 {INR} Normal [facility] Comment on above: Performed By: #### L 300.3900 ####[facility] [address] [place], [address] PT Coag (PPP) [Time] 24.2 s High 11.7-14.9 [facility] Comment on above: Performed By: #### L 300.3900 ####[facility] [address] [place], [address] PT panel Coag (PPP)on 2023 INR Coag (Bld) [Relative time] [facility] Patient calling to report lab result INR=1.3. Result in EPIC. [facility] UA DIP, URINE (POC)on 2023 BILIRUBIN UA (POCT) Negative Negative [facility] CLARITY UA (POCT) Clear [facility] COLOR UA (POCT) Yellow [facility] GLUCOSE UA (POCT) Negative Negative mg/dL [facility] Hemoglobin Ql (U) Negative Negative [facility] Interpretation and review of laboratory results Abnormal [facility] KETONE UA (POCT) Negative Negative mg/dL [facility] LEUKOCYTES UA (POCT) Negative Negative [facility] NITRITE UA (POCT) Negative Negative [facility] PH UA (POCT) 6.0 4.5 - 8.0 [facility] Protein Ql (U) 30 mg/dL Abnormal Negative [facility] SPECIFIC GRAVITY UA (POCT) 1.025 1.005 - 1.030 [facility] UROBILINOGEN UA (POCT) 0.2 Nicki l E.U./dL [facility] Location:[facility], [address] [facility], [place], [place], [address] [place] [address] POINT OF CARE [facility] CNOVon 11-12-2023 CNCAMMY Office Visit (ARUNA ) ALEX BROOKS ([id number]) 1945 M [facility] Date Time Provider Department 11/12/23 1:00 [...] reducing alcohol intake. He was living in [facility] since he was born and moved to [place] for job-related which he regret as business environment and living was not the same. About 10 year ago, he moved to [place] and that was when he started experiencing exacerbation of all the condition. 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 No diabetes Coumadin [facility] [address] [facility] [address] Dept: [phone] Alex Brooks : 1945 [facility] Medicine Acupuncture Intake Form (For Patient Review Regarding Diagnostic Exam) I have received a diagnostic exam by physician or chiropractor within the last six months regarding the condition for which I am seeking treatment. Patient Signature: Alex Brooks Date: 11/12/23 Stock Speculator Signature: Walt Yang Lac. Date: 11/12/23 The patient's history is well detailed in the EMR. Current view: Showing all answers [facility] Mychart Additional Demo Question 11/05/2023 10:20 AM EDT - Filed by Patient Is this visit related to an accident, other than Workers' Compensation? No Is this visit related to Workers' Compensation? No Do you need an washtub worker? No [facility] Promis Cat V2.0-Physical Function-28 Days [...] a medical diagnosis? (more content not included)... [facility] 11-10-2023 [facility] Telephone (FMUPCE) ALEX BROOKS ( ) 1945 [...] message on pt's phone instructions. 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 [facility] PT panel Coag (PPP)on 2023 INR Coag (Bld) [Relative time] 2.5 {INR} [facility] PT panel Coag (PPP)on 2023 INR Coag (Bld) [Relative time] 1.9 (ext) 2.0 - 3.0 [facility] PT panel Coag (PPP)on 2023 INR Coag (Bld) [Relative time] 2.0 {INR} 2.0 - 3.0 [facility] XR Chest PA and Lateralon IMPRESSION: No acute radiographic abnormality. Engineer Technical Staff: [facility] Transcribe Date/Time: Aug 25 2023 4:47P Dictated by : DENIA BRADY MD This examination was interpreted and the report reviewed and electronically signed by: DENIA BRADY MD on Aug 25 2023 4:52PM [facility] DIVISION OF RADIOLOGY * * *Final Report* [...] soft tissues: Unremarkable. DIVISION OF RADIOLOGY Provider, [facility] Stan Choudhury - 08/25/2023 * * *Final [...] Unremarkable. IMPRESSION IMPRESSION: No acute radiographic abnormality. Engineer Technical Staff: BIRD Transcribe Date/Time: Aug 25 2023 4:47P Dictated by : DENIA BRADY MD This examination was interpreted and the report reviewed and electronically signed by: DENIA BRADY MD on Aug 25 2023 4:52PM [facility] Radiology Study observation (narrative) Brooke rojas [facility] XR Chest PA and LateralOrder ed By: [facility] Provider on 08-25-2023 [facility] PT panel Coag (PPP)on 2023 [facility] CNPNon 07-30-2023 CNPN Telephone (FMUPCE) ALEX BROOKS [...] leave a detailed message. 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 - Back Brace (BACK SUPPORT S/M) [facility] Use as instructed. - lisinopril (ZESTRIL) 20 [...] Ureterolithiasis [N20.1] 02 (more content not included)... [facility] PT panel Coag (PPP)on 2023 INR Coag (Bld) [Relative time] 1.9 {INR} [facility] CNPPolly 07-15-2023 CNPN Telephone (FMUPCE) ALEX [...] out of the office. Routing to Provider showroom consultant ALVERTO Jain Victor H, MD 07/15/2023 4:56 [...] Reason for Visit: Anticoagulation [8] Primary Visit Diagnosis:FCI (current) use of anticoagulants [Z79.01] Other Visit Diagnosis:Recurrent pulmonary embolism (HCC) [I26.99] Order(s):PROTHROMBIN TIME [SQPT] Order #: [id number] Prescriptions as of 07/15/2023 - oxyCODONE-acetaminoph en [...] needed. - Back Brace (BACK SUPPORT S/M) [facility] Use as instructed. - lisinopril (ZESTRIL) 20 [...] cough [R05.3] 10/04/2015 (more content not included)... [facility] PT panel Coag (PPP)on 2023 INR Coag (Bld) [Relative time] 2.4 {INR} [facility] CNPPolly 06-30-2023 CNPN Telephone (FMUPCE) ALEX BROOKS [...] detailed message for pt. ALVERTO Jain Rosa, APRN.INFO SPECIALIST 06/30/2023 4:07 PM Signed INR looks good, [...] Date Reviewed: 06/29/2023 Reviewed by: Zeny Lam APRN.INFO SPECIALIST - Fully Assessed Reason for Visit: Anticoagulation [8] Order(s):PROTHROMBIN TIME [SQPT] Order #: [id number] Prescriptions as of 06/30/2023 - oxyCODONE-acetaminoph en [...] needed. - Back Brace (BACK SUPPORT S/M) [facility] Use as instructed. - lisinopril (ZESTRIL) 20 [...] 10/04/2015 05/05/2016 (more content not included)... Normal [facility] PT panel Coag (PPP)on 2023 INR Coag (Bld) [Relative time] 2.2 {INR} [facility] PT panel Coag (PPP)on 2023 INR Coag (Bld) [Relative time] 2.9 {INR} [facility] PT panel Coag (PPP)on 2023 INR Coag (Bld) [Relative time] 4.5 {INR} [facility] MR Lumbar spine WO contrasto n 05-29-2023 Radiology Result ACTIONABLE Abnormal [facility] PT panel Coag (PPP)on 2023 INR Coag (Bld) [Relative time] 2.6 {INR} [facility] CNPPolly 05-15-2023 CNPN Telephone [place] ALEX BROOKS ( ) 1945 M T [...] leave a detailed message. ALVERTO Jain Rosa, APRN.INFO SPECIALIST 05/15/2023 9:02 AM Signed We have previously [...] disease) [K21.9] more content not included)... Normal [facility] Brain/Head without Contrasto n 05-14-2023 Brain/Head without Contrast [facility] Imaging Services [address] [place] [address] Brain/Head without Contrast MR#: [id number] Acct: [id number] Name: ALEX BROOKS Rep #: [id number] : 1945 M 77 From: Gustavo ayala MD PCP: Dr. Franc Hills MD Status: REG ER Study: Brain/Head without Contrast Date of Exam: 11/27 Exam# [id number] Ordering Dr: Mckinley Varner [id number] STUDY: CT BRAIN WITHOUT CONTRAST REASON FOR [...] of the left frontal lobe. Electronically Signed: Gsutavo Pruett MD at 13:14 EST Reading Location ID and State: [facility] / [place] , Service support , CC: CHRISTAL Varner; Dr. Franc Hills MD Engineer Technical Staff: Signed Normal [facility] Elbow min 3 Viewson 05-14-19 Elbow min 3 Views [facility] Imaging Services [address] [place] [address] Elbow min 3 Views MR#: [id number] Acct: [id number] Name: ALEX BROOSK Rep #: [id number] : 1945 M 77 From: Gustavo ayala MD PCP: Dr. Franc Hills MD Status: REG ER Study: Elbow min 3 Views Date of Exam: 05/14/23 Exam# [id number] Ordering Dr: Mckinley Varner [id number] STUDY: X-RAY - LEFT ELBOW REASON FOR [...] CC: CHRISTAL Varner; Dr. Franc Hills MD Engineer Technical Staff: Signed Normal [facility] Emergency Department Summary on 05-14-2023 Emergency Department Summary [facility] Medical Records Department [address] [place] [address] Emergency Department Summary 05/14/23 MR#: [id number] Acct: [id number] Name: ALEX BROOKS Rep #: [id number] : 1945 77 From: Lisandro Mora MD [...] little relief. He is here for evaluation. [facility] Medical History Alcohol use Asthma Back [...] Skin: Negati (more content not included)... Normal [facility] Spine Lumbar without Contras ton 05-14-2023 Spine Lumbar without Contrast [facility] Imaging Services [address] [place] [address] Spine Lumbar without Contrast MR#: [id number] Acct: [id number] Name: ALEX BROOKS Rep #: [id number] : 1945 M 77 From: Gustavo ayala MD PCP: Dr. Franc Hills MD Status: REG ER Study: Spine Lumbar without Contrast Date of Exam: Exam# [id number] Ordering Dr: Mckinley Varner BREAKDOWN MILL OPERATOR-C [id number] STUDY: CT LUMBAR SPINE WITHOUT CONTRAST REASON [...] CC: CHRISTAL Varner; Dr. Franc Hills MD Engineer Technical Staff: Signed Normal [facility] PT panel Coag (PPP)on 2022 INR Coag (Bld) [Relative time] 2.3 {INR} 2.0 - 3.0 [facility] CNPNon 02-04-2023 CNPN Telephone (FMUPCE) ALEX BROOKS ( ) 1945 M [facility] Date Time Provider Department 02/04/23 ZENY [...] Reason for Visit: Anticoagulation [8] Primary Visit Diagnosis:FCI (current) use of anticoagulants [Z79.01] Other Visit Diagnosis:Recurrent pulmonary embolism (HCC) [I26.99] Order(s):PROTHROMBIN TIME/PT [SQPT] Order #: [id number] Prescriptions as of 02/04/2023 - pantoprazole DR [...] 03/31/2014 10/11/2014 Recurr (more content not included)... [facility] PT panel Coag (PPP)on 2022 INR Coag (Bld) [Relative time] 2.6 {INR} [facility] PT panel Coag (PPP)on 2022 INR Coag (Bld) [Relative time] 2.2 {INR} [facility] PT panel Coag (PPP)on 2022 INR Coag (Bld) [Relative time] 5.3 (ext) 2.0 - 3.0 [facility] PT panel Coag (PPP)on 2022 INR Coag (Bld) [Relative time] 3.3 {INR} [facility] PT panel Coag (PPP)on 2022 INR Coag (Bld) [Relative time] 2.1 {INR} [facility] PT panel Coag (PPP)on 2022 INR Coag (Bld) [Relative time] 2.4 (ext) 2.0 - 3.0 [facility] PT panel Coag (PPP)on 2022 INR Coag (Bld) [Relative time] 1.0 {INR} Abnormal 2.0 - 3.0 [facility] PT panel Coag (PPP)on 2022 INR Coag (Bld) [Relative time] 3.7 {INR} [facility] PT panel Coag (PPP)on 2022 INR Coag (Bld) [Relative time] 2.1 EXT 2.5 - 3.5 [facility] PT panel Coag (PPP)on 2022 INR Coag (Bld) [Relative time] 2.4 {INR} [facility] PT panel Coag (PPP)on 2022 INR Coag (Bld) [Relative time] 1.0 {INR} [facility] PT panel Coag (PPP)on 2021 INR Coag (Bld) [Relative time] 3.2 {INR} Abnormal 2.0 - 3.0 [facility] Laboratory - Coagulationon 1 05-25-2021 INR Coag (Bld) [Relative time] 1.1 {INR} [facility] Work Phone: Comment on above: Critical Value > 4.0 Whole blood prothrombin time on 03-24-2022 PT Coag (Bld) [Time] 13.8 s 11.7-14.9 [facility] Work Phone: INR (POC)on 02-18-2022 INR Coag (PPP) [Relative time] 2.6 {INR} High 0.8 - 1.2 [facility] Internal Quality Check Acceptable [facility] INRon 01-08-2022 INR Coag (Bld) [Relative time] 1.8 {INR} Abnormal 2.0 - 3.0 [facility] Absolute lymphocyte counton 09-28-2021 Lymphocytes Auto (Unsp spec) [#/Vol] 2.86 10*3/uL 0.83-4.51 [facility] Work Phone: Basophil percentageon 2021 Basophils/100 WBC (Bld) 0.7 % 0-1 [facility] Work Phone: Chloride [Moles/Vol] 106 mmol/L 98-107 [facility] Work Phone: Eosinophils/100 WBC (Bld) 5.2 % 0-5 [facility] Work Phone: Glucose [Mass/Vol] 99 mg/dL 74-106 [facility] Work Phone: Neutrophils (Bld) [#/Vol] 3.0 10*3/uL 2.0-7.7 [facility] Work Phone: Neutrophils/100 WBC (Bld) 41.2 % 47-70 [facility] Work Phone: Potassium [Moles/Vol] 3.8 mmol/L 3.5-5.1 [facility] Work [facility]: Sodium [Moles/Vol] 138 mmol/L 136-145 [facility] Work Phone: WBC (Bld) [#/Vol] 7.3 10*3/uL 4.4-11.0 [facility] Work Phone: Blood erythrocytes count (nu mber/volume)on 09-28-2021 RBC (Bld) [#/Vol] 4.91 10*6/uL 4.6-6.2 [facility] Work Phone: Blood hemoglobin measurement (mass/volume)on 09-28-2021 Hemoglobin (Bld) [Mass/Vol] 15.5 g/dL 13.0-16.5 [facility] Work Phone: Blood lymphocytes/100 leukoc yteson 09-28-2021 Lymphocytes/100 WBC (Bld) 39.1 % 19-41 [facility] Work Phone: Blood monocytes/100 leukocyt eson 09-28-2021 Monocytes/100 WBC (Bld) 13.7 % 0-10 [facility] Work Phone: Blood platelet mean volumeon 09-28-2021 Platelet mean volume (Bld) [Entitic vol] 9.6 fL 6.2-12.0 [facility] Work Phone: Determination of erythrocyte mean corpuscular volume (MCV)on 09-28-2021 MCV (RBC) [Entitic vol] 95.7 fL 80-94 [facility] Work Phone: [phone] Hematocrit Auto (Bld) [Volum e fraction]on 09-28-2021 Hematocrit (Bld) [Volume fraction] 47.0 % 40-54 [facility] Work Phone: INR in Blood by Coagulation assayon 09-28-2021 INR Coag (Bld) [Relative time] 1.7 {INR} [facility] Work Phone: [phone] Laboratory - Chemistry and C hemistry - challengeon 09-28-2021 CO2 [Moles/Vol] 26.0 mmol/L 21.0-32.0 [facility] Work Phone: Urea nitrogen/Creatinine [Mass ratio] 16.4 mg/mg 10-20 [facility] Work Phone: [phone] Laboratory - Coagulationon 0 09-28-2021 PT Coag (PPP) [Time] 19.4 s 11.7-14.9 [facility] Work Phone: [phone] Laboratory - Hematology and Cell countson 09-28-2021 Erythrocyte distribution width (RBC) [Entitic vol] 49.6 fL 35.1-43.9 [facility] Work Phone: [phone] Erythrocyte distribution width (RBC) [Ratio] 14.0 % 11.6-14.6 [facility] Work Phone: [phone] Immature granulocytes/100 WBC (Bld) 0.100 % 0.0-0.9 [facility] Work Phone: Comment on above: IG% - Immature Granu locytes (promyelocytes, myelocytes and metamyelocytes) > 1% indicates that a LEFT SHIFT is Present. MCH (RBC) [Entitic mass] 31.6 pg 27.0-32.0 [facility] Work Phone: Nucleated RBC/100 WBC (Bld) [Ratio] 0 % 0-5 [facility] Work Phone: [phone] MCHC Auto (RBC) [Mass/Vol]on 09-28-2021 MCHC (RBC) [Mass/Vol] 33.0 g/dL 32-36 [facility] Work Phone: No Panel Informationon 09-28 Estimated Creatinine Clearance Calc 80.94 ml/min [facility] Work Phone: Estimated GFR (MDRD) Amer 112 mL/min >60 [facility] Work Phone: Comment on above: GFR Calc Estimated GFR (MDRD) Non-Af Amer 92 mL/min >60 [facility] Work Phone: Comment on above: Non- GFR Calc Platelets bldon 09-28-2021 Platelets (Bld) [#/Vol] 201 10*3/uL 150-450 [facility] Work Phone: Serum or plasma calcium wilmar urement (mass/volume)on 09-28-2021 Calcium [Mass/Vol] 9.3 mg/dL 8.5-10.1 [facility] Work Phone: Serum or plasma creatinine m easurement (mass/volume)on 09-28-2021 Creatinine [Mass/Vol] 0.85 mg/dL 0.70-1.30 [facility] Work Phone: Comment on above: The validity of the calculated GFR & GFRAA in patients over 70 years has not been determined. Clinical correlation is essential. Serum or plasma urea nitroge n measurement (mass/volume)on 09-28-2021 Urea nitrogen [Mass/Vol] 14 mg/dL 7-18 [facility] Work Phone: Thin prep Papanicolaou smear with manual screeningon 09-28-2021 Thin prep Papanicolaou smear with manual screening 6 5-15 [facility] Work Phone: PT panel Coag (PPP)on 2021 INR Coag (Bld) [Relative time] 2.2 {INR} 2 - 3 [facility] PT panel Coag (PPP)on 2021 INR Coag (Bld) [Relative time] 2.1(EXT) 2.0 - 3.0 [facility] PT panel Coag (PPP)on 2021 INR Coag (Bld) [Relative time] 1.7 {INR} [facility] XR Wrist - right PA and Late ral and Obliqueon 01-13-2020 IMPRESSION: Tiny accessory bone versus tiny avulsion fracture along the radial styloid. Engineer Technical Staff: BIRD Transcribe Date/Time: Jan 13 2020 10:30A Dictated by : ELSY BARNARD MD This examination was interpreted and the report reviewed and electronically signed by: ELSY BARNARD MD on Jan 13 2020 10:32AM [facility] DIVISION OF RADIOLOGY * * *Final Report* [...] soft tissue swelling. DIVISION OF RADIOLOGY Provider, [facility] Stan [facility] - 01/13/2020 * * *Final Report* [...] tiny avulsion fracture along the radial styloid. Engineer Technical Staff: BIRD Transcribe Date/Time: Jan 13 2020 10:30A Dictated by : ELSY BARNARD MD This examination was interpreted and the report reviewed and electronically signed by: ELSY BARNARD MD on Jan 13 2020 10:32AM EST [facility] Radiology Study observation (narrative) Brooke rojas [facility] XR Wrist - right PA and Late ral and ObliqueOrdered By: Ccf Provider on 01-13-2020 [facility] No Panel Information [facility] Vital Signs Date Time Vital Sign Value Performing Clinician Facility 11-20-2024 09:03-0400 Body temperature 98.1 [degF] Dr. Danielle Han DO Work Phone: 2(729)[phone] [address] 11-20-2024 09:03-0400 Diastolic blood pressure 87 mm[Hg] Dr. Danielle Han DO Work Phone: 3(844)[phone] [place] [address] 11-20-2024 09:03-0400 Heart rate 74 /min Dr. Danielle Han DO Work Phone: 0(117)[phone] [address] 11-20-2024 09:03-0400 Respiratory rate 19 /min Dr. Danielle Han DO Work Phone: 9(655)[phone] [place] [address] 11-20-2024 09:03-0400 SaO2% (BldA) [Mass fraction] 100 % Dr. Danielle Han DO Work Phone: 0(200)[phone] [place] [address] 11-20-2024 09:03-0400 Systolic blood pressure 164 mm[Hg] Dr. Danielle Han DO Work Phone: 7(674)[phone] [place] [address] 11-20-2024 09:02-0400 Body height 185.[address] Danielle Han DO Work Phone: 5(268)[phone] [place] [address] 11-20-2024 09:02-0400 Body mass index (BMI) [Ratio] 25.1 kg/m2 Dr. Danielle Han DO Work Phone: 0(230)[phone] [place] [address] 11-20-2024 09:02-0400 Body weight 86.[address] Danielle Han DO Work Phone: 0(147)[phone] [place] [address] 11-15-2024 13:48-0400 Diastolic blood pressure 68 mm[Hg] Zeny Genaro VINYL CUTTER.INFO SPECIALIST Work Phone: [facility] 11-15-2024 13:48-0400 Systolic blood pressure 128 mm[Hg] Zeny Genaro VINYL CUTTER.INFO SPECIALIST Work Phone: [facility] 11-15-2024 12:43-0400 Body mass index (BMI) [Ratio] 27.59 kg/m2 Zeny Genaro VINYL CUTTER.INFO SPECIALIST Work Phone: [facility] 11-15-2024 12:43-0400 Body weight 89.4 kg Zeny Genaro VINYL CUTTER.INFO SPECIALIST Work Phone: [facility] 11-15-2024 12:43-0400 Heart rate 80 /min Zeny Genaro VINYL CUTTER.INFO SPECIALIST Work Phone: [facility] 11-15-2024 12:43-0400 Respiratory rate 20 /min Zeny Genaro VINYL CUTTER.INFO SPECIALIST Work Phone: [facility] 10-20-2024 12:56-0400 Diastolic blood pressure 82 mm[Hg] Mirlande Funez MD Work Phone: [facility] 10-20-2024 12:56-0400 Heart rate 114 /min Mirlande Funez MD Work Phone: [facility] 10-20-2024 12:56-0400 Respiratory rate 17 /min Mirlande Funez MD Work Phone: [facility] 10-20-2024 12:56-0400 SaO2% (BldA) [Mass fraction] 96 % Mirlande Funez MD Work Phone: [facility] 10-20-2024 12:56-0400 Systolic blood pressure 132 mm[Hg] Mirlande Funez MD Work Phone: [facility] 08-15-2024 13:31-0400 Body height 180 cm Zeny Genaro VINYL CUTTER.INFO SPECIALIST Work Phone: [facility] 08-15-2024 13:31-0400 Body mass index (BMI) [Ratio] 26.91 kg/m2 Zeny Genaro VINYL CUTTER.INFO SPECIALIST Work Phone: [facility] 08-15-2024 13:31-0400 Body weight 87.2 kg Zeny Genaro VINYL CUTTER.INFO SPECIALIST Work Phone: [facility] 08-15-2024 13:31-0400 Diastolic blood pressure 74 mm[Hg] Zeny Genaro VINYL CUTTER.INFO SPECIALIST Work Phone: [facility] 08-15-2024 13:31-0400 Heart rate 96 /min Zeny Genaro VINYL CUTTER.INFO SPECIALIST Work Phone: [facility] 08-15-2024 13:31-0400 SaO2% (BldA) [Mass fraction] 97 % Zeny Genaro VINYL CUTTER.INFO SPECIALIST Work Phone: [facility] 08-15-2024 13:31-0400 Systolic blood pressure 100 mm[Hg] Zeny Genaro VINYL CUTTER.INFO SPECIALIST Work Phone: [facility] 08-08-2024 12:54-0400 Body height 185.4 cm Sunny Mercedes MD Work Phone: [facility] 08-08-2024 12:54-0400 Body mass index (BMI) [Ratio] 25.07 kg/m2 Sunny Mercedes MD Work Phone: [facility] 08-08-2024 12:54-0400 Body weight 86.18 kg Sunny Mercedes MD Work Phone: [facility] 08-08-2024 12:54-0400 Diastolic blood pressure 76 mm[Hg] Sunny Mercedes MD Work Phone: [facility] 08-08-2024 12:54-0400 Heart rate 82 /min Sunny Mercedes MD Work Phone: [facility] 08-08-2024 12:54-0400 Respiratory rate 16 /min Sunny Mercedes MD Work Phone: [facility] 08-08-2024 12:54-0400 SaO2% (BldA) [Mass fraction] 96 % Sunny Mercedes MD Work Phone: [facility] 08-08-2024 12:54-0400 Systolic blood pressure 132 mm[Hg] Sunny Mercedes MD Work Phone: [facility] 07-25-2024 11:14-0400 Body mass index (BMI) [Ratio] 25.62 kg/m2 Zeny Genaro VINYL CUTTER.INFO SPECIALIST Work Phone: [facility] 07-25-2024 11:14-0400 Body weight 88.1 kg Zeny Genaro VINYL CUTTER.INFO SPECIALIST Work Phone: [facility] 07-25-2024 11:14-0400 Diastolic blood pressure 78 mm[Hg] Zeny Genaro VINYL CUTTER.INFO SPECIALIST Work Phone: [facility] 07-25-2024 11:14-0400 Heart rate 98 /min Zeny Genaro VINYL CUTTER.INFO SPECIALIST Work Phone: [facility] 07-25-2024 11:14-0400 SaO2% (BldA) [Mass fraction] 96 % Zeny Genaro VINYL CUTTER.INFO SPECIALIST Work Phone: [facility] 07-25-2024 11:14-0400 Systolic blood pressure 118 mm[Hg] Zeny Genaro VINYL CUTTER.INFO SPECIALIST Work Phone: [facility] 06-08-2024 15:06-0500 Body mass index (BMI) [Ratio] 25.65 kg/m2 Zeny Genaro VINYL CUTTER.INFO SPECIALIST Work Phone: [facility] 06-08-2024 15:06-0500 Body weight 88.2 kg Zeny Genaro VINYL CUTTER.INFO SPECIALIST Work Phone: [facility] 06-08-2024 15:06-0500 Diastolic blood pressure 60 mm[Hg] Zeny Genaro VINYL CUTTER.INFO SPECIALIST Work Phone: [facility] 06-08-2024 15:06-0500 Heart rate 84 /min Zeny Genaro VINYL CUTTER.INFO SPECIALIST Work Phone: [facility] 06-08-2024 15:06-0500 SaO2% (BldA) [Mass fraction] 96 % Zeny Genaro VINYL CUTTER.INFO SPECIALIST Work Phone: [facility] 06-08-2024 15:06-0500 Systolic blood pressure 100 mm[Hg] Zeny Elizabethr VINYL CUTTER.INFO SPECIALIST Work Phone: [facility] 05-24-2024 11:36-0500 Diastolic blood pressure 58 mm[Hg] Edgar Loaiza DO Work Phone: [facility] 05-24-2024 11:36-0500 Heart rate 83 /min Edgar Loaiza DO Work Phone: [facility] 05-24-2024 11:36-0500 SaO2% (BldA) [Mass fraction] 95 % Edgar Loaiza DO Work Phone: [facility] 05-24-2024 11:36-0500 Systolic blood pressure 98 mm[Hg] Edgar Loaiza DO Work Phone: [facility] 05-17-2024 13:52-0500 Body mass index (BMI) [Ratio] 25.86 kg/m2 Teri Yasmani VINYL CUTTER.INFO SPECIALIST Work Phone: [facility] 05-17-2024 13:52-0500 Body weight 88.91 kg Teri Yasmani VINYL CUTTER.INFO SPECIALIST Work Phone: [facility] 05-17-2024 13:52-0500 Diastolic blood pressure 72 mm[Hg] Teri Yasmani VINYL CUTTER.INFO SPECIALIST Work Phone: [facility] 05-17-2024 13:52-0500 Heart rate 75 /min Teri Yasmani VINYL CUTTER.INFO SPECIALIST Work Phone: [facility] 05-17-2024 13:52-0500 SaO2% (BldA) [Mass fraction] 96 % Teri Yasmani VINYL CUTTER.INFO SPECIALIST Work Phone: [facility] 05-17-2024 13:52-0500 Systolic blood pressure 110 mm[Hg] Teri Yasmani VINYL CUTTER.INFO SPECIALIST Work Phone: [facility] 02-15-2024 14:24-0500 Body mass index (BMI) [Ratio] 25.04 kg/m2 Zeny Genaro VINYL CUTTER.INFO SPECIALIST Work Phone: [facility] 02-15-2024 14:24-0500 Body weight 86.1 kg Zeny Genaro VINYL CUTTER.INFO SPECIALIST Work Phone: [facility] 02-15-2024 14:24-0500 Diastolic blood pressure 80 mm[Hg] Zeny Genaro VINYL CUTTER.INFO SPECIALIST Work Phone: [facility] 02-15-2024 14:24-0500 Heart rate 85 /min Zeny Genaro VINYL CUTTER.INFO SPECIALIST Work Phone: [facility] 02-15-2024 14:24-0500 SaO2% (BldA) [Mass fraction] 96 % Zeny Genaro VINYL CUTTER.INFO SPECIALIST Work Phone: [facility] 02-15-2024 14:24-0500 Systolic blood pressure 110 mm[Hg] Zeny Genaro VINYL CUTTER.INFO SPECIALIST Work Phone: [facility] 01-20-2024 13:55-0400 Diastolic blood pressure 70 mm[Hg] Zeny Genaro VINYL CUTTER.INFO SPECIALIST Work Phone: [facility] 01-20-2024 13:55-0400 Systolic blood pressure 142 mm[Hg] Zeny Genaro VINYL CUTTER.INFO SPECIALIST Work Phone: [facility] 01-20-2024 13:09-0400 Body height 185.4 cm Zeny Genaro VINYL CUTTER.INFO SPECIALIST Work Phone: [facility] 01-20-2024 13:09-0400 Body mass index (BMI) [Ratio] 25.01 kg/m2 Zeny Genaro VINYL CUTTER.INFO SPECIALIST Work Phone: [facility] 01-20-2024 13:09-0400 Body weight 86 kg Zeny Genaro VINYL CUTTER.INFO SPECIALIST Work Phone: [facility] 01-20-2024 13:09-0400 Heart rate 95 /min Zeny Genaro VINYL CUTTER.INFO SPECIALIST Work Phone: [facility] 01-20-2024 13:09-0400 Respiratory rate 16 /min Zeny Genaro VINYL CUTTER.INFO SPECIALIST Work Phone: [facility] 01-20-2024 13:09-0400 SaO2% (BldA) [Mass fraction] 96 % Zeny Genaro VINYL CUTTER.INFO SPECIALIST Work Phone: [facility] 01-06-2024 11:12-0400 Body mass index (BMI) [Ratio] 24.43 kg/m2 Zeny Genaro VINYL CUTTER.INFO SPECIALIST Work Phone: [facility] 01-06-2024 11:12-0400 Body weight 84 kg Zeny Genaor VINYL CUTTER.INFO SPECIALIST Work Phone: [facility] 01-06-2024 11:12-0400 Diastolic blood pressure 64 mm[Hg] Zeny Genaro VINYL CUTTER.INFO SPECIALIST Work Phone: [facility] 01-06-2024 11:12-0400 Heart rate 69 /min Zeny Genaro VINYL CUTTER.INFO SPECIALIST Work Phone: [facility] 01-06-2024 11:12-0400 SaO2% (BldA) [Mass fraction] 97 % Zeny Genaro VINYL CUTTER.INFO SPECIALIST Work Phone: [facility] 01-06-2024 11:12-0400 Systolic blood pressure 90 mm[Hg] Zeny Genaro VINYL CUTTER.INFO SPECIALIST Work Phone: [facility] 12-14-2023 13:40-0400 Diastolic blood pressure 80 mm[Hg] Zeny Genaro VINYL CUTTER.INFO SPECIALIST Work Phone: [facility] 12-14-2023 13:40-0400 Systolic blood pressure 120 mm[Hg] Zeny Genaro VINYL CUTTER.INFO SPECIALIST Work Phone: [facility] 12-14-2023 13:34-0400 Body mass index (BMI) [Ratio] 23.88 kg/m2 Zeny Genaro VINYL CUTTER.INFO SPECIALIST Work Phone: [facility] 12-14-2023 13:34-0400 Body weight 82.1 kg Zeny Genaro VINYL CUTTER.INFO SPECIALIST Work Phone: [facility] 12-14-2023 13:34-0400 Heart rate 89 /min Zeny Genaro VINYL CUTTER.INFO SPECIALIST Work Phone: [facility] 12-14-2023 13:34-0400 SaO2% (BldA) [Mass fraction] 98 % Zeyn Lam APRN.INFO SPECIALIST Work Phone: [facility] 11-16-2023 13:17-0400 Body height 185.4 cm Micah Portillo APRN.INFO SPECIALIST, DNP Work Phone: [facility] 11-16-2023 13:17-0400 Body mass index (BMI) [Ratio] 24.14 kg/m2 Micah Portillo APRN.INFO SPECIALIST, DNP Work Phone: [facility] 11-16-2023 13:17-0400 Body temperature 97.5 [degF] Micah Portillo APRN.INFO SPECIALIST, DNP Work Phone: [facility] 11-16-2023 13:17-0400 Body weight 83.01 kg Micah Portillo APRN.INFO SPECIALIST, DNP Work Phone: [facility] 11-16-2023 13:17-0400 Diastolic blood pressure 78 mm[Hg] Micah Portillo APRN.[facility], DNP Work Phone: [facility] 11-16-2023 13:17-0400 Heart rate 94 /min Micah Portillo APRN.[facility], DNP Work Phone: [facility] 11-16-2023 13:17-0400 Respiratory rate 18 /min Micah Portillo APRN.INFO SPECIALIST, DNP Work Phone: [facility] 11-16-2023 13:17-0400 SaO2% (BldA) [Mass fraction] 98 % Micah Portillo APRN.INFO SPECIALIST, DNP Work Phone: [facility] 11-16-2023 13:17-0400 Systolic blood pressure 110 mm[Hg] Micah Portillo APRN.INFO SPECIALIST, DNP Work Phone: [facility] 09-15-2023 12:54-0400 Diastolic blood pressure 60 mm[Hg] Zeny Lam APRN.INFO SPECIALIST Work Phone: [facility] 09-15-2023 12:54-0400 Systolic blood pressure 110 mm[Hg] Zeny Genaro VINYL CUTTER.INFO SPECIALIST Work Phone: [facility] 09-15-2023 12:51-0400 Body height 185.4 cm Zeny Genaro VINYL CUTTER.INFO SPECIALIST Work Phone: [facility] 09-15-2023 12:51-0400 Body mass index (BMI) [Ratio] 22.96 kg/m2 Zeny Genaro VINYL CUTTER.INFO SPECIALIST Work Phone: [facility] 09-15-2023 12:51-0400 Body weight 78.93 kg Zeny Genaro VINYL CUTTER.INFO SPECIALIST Work Phone: [facility] 09-15-2023 12:51-0400 Heart rate 89 /min Zeny Genaro VINYL CUTTER.INFO SPECIALIST Work Phone: [facility] 09-15-2023 12:51-0400 SaO2% (BldA) [Mass fraction] 97 % Zeny Genaro VINYL CUTTER.INFO SPECIALIST Work Phone: [facility] 08-27-2023 13:36-0400 Body height 185.4 cm Irene Moraes MD Work Phone: [facility] 08-27-2023 13:36-0400 Body mass index (BMI) [Ratio] 22.22 kg/m2 Irene Moraes MD Work Phone: [facility] 08-27-2023 13:36-0400 Body weight 76.4 kg Irene Moraes MD Work Phone: [facility] 08-27-2023 13:36-0400 Diastolic blood pressure 81 mm[Hg] Irene Moraes MD Work Phone: [facility] 08-27-2023 13:36-0400 Heart rate 101 /min Irene Moraes MD Work Phone: [facility] 08-27-2023 13:36-0400 Systolic blood pressure 119 mm[Hg] Irene Moraes MD Work Phone: [facility] 08-25-2023 09:30-0400 Body mass index (BMI) [Ratio] 22.03 kg/m2 Zeny Genaro VINYL CUTTER.INFO SPECIALIST Work Phone: [facility] 08-25-2023 09:30-0400 Body weight 75.75 kg Zeny Genaro VINYL CUTTER.INFO SPECIALIST Work Phone: [facility] 08-25-2023 09:30-0400 Diastolic blood pressure 52 mm[Hg] Zeny Genaro VINYL CUTTER.INFO SPECIALIST Work Phone: [facility] 08-25-2023 09:30-0400 Heart rate 98 /min Zeny Genaro VINYL CUTTER.INFO SPECIALIST Work Phone: [facility] 08-25-2023 09:30-0400 SaO2% (BldA) [Mass fraction] 97 % Zeny Genaro VINYL CUTTER.INFO SPECIALIST Work Phone: [facility] 08-25-2023 09:30-0400 Systolic blood pressure 88 mm[Hg] Zeny Genaro VINYL CUTTER.INFO SPECIALIST Work Phone: [facility] 08-10-2023 12:54-0400 Body height 185.4 cm Micah Portillo APRN.INFO SPECIALIST, DNP Work Phone: [facility] 08-10-2023 12:54-0400 Body mass index (BMI) [Ratio] 22.56 kg/m2 Micah Portillo APRN.KAY[facility], DNP Work Phone: [facility] 08-10-2023 12:54-0400 Body weight 77.56 kg Micah Portillo APRN.[facility], DNP Work Phone: [facility] 08-10-2023 12:54-0400 Diastolic blood pressure 65 mm[Hg] Micah Portillo APRN.INFO SPECIALIST, DNP Work Phone: [facility] 08-10-2023 12:54-0400 Heart rate 63 /min Micah Portillo APRN.INFO SPECIALIST, DNP Work Phone: [facility] 08-10-2023 12:54-0400 Respiratory rate 16 /min Micah Portillo APRN.INFO SPECIALIST, DNP Work Phone: [facility] 08-10-2023 12:54-0400 Systolic blood pressure 117 mm[Hg] Micah Portillo APRN.INFO SPECIALIST, DNP Work Phone: [facility] 07-27-2023 13:03-0400 Body mass index (BMI) [Ratio] 22.3 kg/m2 Zeny Genaro VINYL CUTTER.INFO SPECIALIST Work Phone: [facility] 07-27-2023 13:03-0400 Body weight 76.66 kg Zeny Genaro VINYL CUTTER.INFO SPECIALIST Work Phone: [facility] 07-27-2023 13:03-0400 Diastolic blood pressure 60 mm[Hg] Zeny Genaro VINYL CUTTER.INFO SPECIALIST Work Phone: [facility] 07-27-2023 13:03-0400 Heart rate 65 /min Zeny Genaro VINYL CUTTER.INFO SPECIALIST Work Phone: [facility] 07-27-2023 13:03-0400 SaO2% (BldA) [Mass fraction] 96 % Zeny Genaro VINYL CUTTER.INFO SPECIALIST Work Phone: [facility] 07-27-2023 13:03-0400 Systolic blood pressure 114 mm[Hg] Zney Genaro VINYL CUTTER.INFO SPECIALIST Work Phone: [facility] 07-21-2023 10:39-0400 Diastolic blood pressure 70 mm[Hg] Edgar Loaiza DO Work Phone: [facility] 07-21-2023 10:39-0400 Heart rate 73 /min Edgar Loaiza DO Work Phone: [facility] 07-21-2023 10:39-0400 SaO2% (BldA) [Mass fraction] 96 % Edgar Loaiza DO Work Phone: [facility] 07-21-2023 10:39-0400 Systolic blood pressure 123 mm[Hg] Edgar Loaiza DO Work Phone: [facility] 07-18-2023 09:02-0400 Body height 185.4 cm Franc Hills MD Work Phone: [facility] 07-18-2023 09:02-0400 Body temperature 98.4 [degF] Franc Hills MD Work Phone: [facility] 07-18-2023 09:02-0400 Body weight 72.12 kg Franc Hills MD Work Phone: [facility] 07-18-2023 09:02-0400 Diastolic blood pressure 50 mm[Hg] Franc Hills MD Work Phone: [facility] 07-18-2023 09:02-0400 Heart rate 62 /min Franc Hills MD Work Phone: [facility] 07-18-2023 09:02-0400 Respiratory rate 12 /min Franc Hills MD Work Phone: [facility] 07-18-2023 09:02-0400 SaO2% (BldA) [Mass fraction] 97 % Franc Hills MD Work Phone: [facility] 07-18-2023 09:02-0400 Systolic blood pressure 114 mm[Hg] Franc Hills MD Work Phone: [facility] 06-29-2023 11:15-0400 Body weight 74.75 kg Zeny Genaro VINYL CUTTER.INFO SPECIALIST Work Phone: [facility] 06-29-2023 11:15-0400 Diastolic blood pressure 68 mm[Hg] Zeny Genaro VINYL CUTTER.INFO SPECIALIST Work Phone: [facility] 06-29-2023 11:15-0400 Heart rate 70 /min Zeny Genaro VINYL CUTTER.INFO SPECIALIST Work Phone: [facility] 06-29-2023 11:15-0400 Respiratory rate 16 /min Zeny Genaro VINYL CUTTER.INFO SPECIALIST Work Phone: [facility] 06-29-2023 11:15-0400 SaO2% (BldA) [Mass fraction] 97 % Zeny Genaro VINYL CUTTER.INFO SPECIALIST Work Phone: [facility] 06-29-2023 11:15-0400 Systolic blood pressure 124 mm[Hg] Zeny Genaro VINYL CUTTER.INFO SPECIALIST Work Phone: [facility] 06-15-2023 13:01-0400 Body weight 75.3 kg Sunny Mercedes MD Work Phone: [facility] 06-15-2023 13:01-0400 Diastolic blood pressure 52 mm[Hg] Sunny Mercedes MD Work Phone: [facility] 06-15-2023 13:01-0400 Heart rate 64 /min Sunny Mercedes MD Work Phone: [facility] 06-15-2023 13:01-0400 SaO2% (BldA) [Mass fraction] 98 % Sunny Mercedes MD Work Phone: [facility] 06-15-2023 13:01-0400 Systolic blood pressure 84 mm[Hg] Sunny Mercedes MD Work Phone: [facility] 05-26-2023 10:25-0500 Diastolic blood pressure 78 mm[Hg] Edgar Loaiza DO Work Phone: [facility] 05-26-2023 10:25-0500 Heart rate 85 /min Edgar Loaiza DO Work Phone: [facility] 05-26-2023 10:25-0500 SaO2% (BldA) [Mass fraction] 97 % Edgar Loaiza DO Work Phone: [facility] 05-26-2023 10:25-0500 Systolic blood pressure 124 mm[Hg] Edgar Loaiza DO Work Phone: [facility] 05-18-2023 13:58-0500 Body weight 75.75 kg Zeny Genaro VINYL CUTTER.INFO SPECIALIST Work Phone: [facility] 05-18-2023 13:58-0500 Diastolic blood pressure 72 mm[Hg] Zeny Genaro VINYL CUTTER.INFO SPECIALIST Work Phone: [facility] 05-18-2023 13:58-0500 Heart rate 86 /min Zeny Genaro VINYL CUTTER.INFO SPECIALIST Work Phone: [facility] 05-18-2023 13:58-0500 Respiratory rate 16 /min Zeny Genaro VINYL CUTTER.INFO SPECIALIST Work Phone: [facility] 05-18-2023 13:58-0500 Systolic blood pressure 128 mm[Hg] Zeny Genaro VINYL CUTTER.INFO SPECIALIST Work Phone: [facility] 01-23-2023 14:13-0400 Body weight 77.11 kg Zeny Genaro VINYL CUTTER.INFO SPECIALIST Work Phone: [facility] 01-23-2023 14:13-0400 Diastolic blood pressure 60 mm[Hg] Zeny Genaro VINYL CUTTER.INFO SPECIALIST Work Phone: [facility] 01-23-2023 14:13-0400 Heart rate 75 /min Zeny Genaro VINYL CUTTER.INFO SPECIALIST Work Phone: [facility] 01-23-2023 14:13-0400 SaO2% (BldA) [Mass fraction] 97 % Zeny Genaro VINYL CUTTER.INFO SPECIALIST Work Phone: [facility] 01-23-2023 14:13-0400 Systolic blood pressure 100 mm[Hg] Zeny Genaro VINYL CUTTER.INFO SPECIALIST Work Phone: [facility] 01-19-2023 12:58-0400 Body weight 79.83 kg Mckinley Leal MD Work Phone: [facility] 01-19-2023 12:58-0400 Heart rate 69 /min Mckinley Leal MD Work Phone: [facility] 01-19-2023 12:58-0400 SaO2% (BldA) [Mass fraction] 96 % Mckinley Leal MD Work Phone: [facility] 12-29-2022 14:52-0400 Body weight 77.11 kg Zeny Genaro VINYL CUTTER.INFO SPECIALIST Work Phone: [facility] 12-29-2022 14:52-0400 Diastolic blood pressure 60 mm[Hg] Zeny Genaro VINYL CUTTER.INFO SPECIALIST Work Phone: [facility] 12-29-2022 14:52-0400 Heart rate 93 /min Zeny Genaro VINYL CUTTER.INFO SPECIALIST Work Phone: [facility] 12-29-2022 14:52-0400 SaO2% (BldA) [Mass fraction] 96 % Zeny Lam VINYL CUTTER.INFO SPECIALIST Work Phone: [facility] 12-29-2022 14:52-0400 Systolic blood pressure 98 mm[Hg] Zeny Lam VINYL CUTTER.INFO SPECIALIST Work Phone: [facility] 11-24-2022 17:15-0400 Body weight 79.06 kg Franc Hills MD Work Phone: [facility] 11-24-2022 17:15-0400 Diastolic blood pressure 84 mm[Hg] Franc Hills MD Work Phone: [facility] 11-24-2022 17:15-0400 Heart rate 72 /min Franc Hills MD Work Phone: [facility] 11-24-2022 17:15-0400 Systolic blood pressure 128 mm[Hg] Franc Hills MD Work Phone: [facility] 11-10-2022 14:31-0400 Body height 185.4 cm Salas Johns MD Work Phone: [facility] 11-10-2022 14:31-0400 Body weight 80.47 kg Salas Johns MD Work Phone: [facility] 11-10-2022 14:31-0400 Diastolic blood pressure 73 mm[Hg] Salas Johns MD Work Phone: [facility] 11-10-2022 14:31-0400 Heart rate 72 /min Salas Johns MD Work Phone: [facility] 11-10-2022 14:31-0400 SaO2% (BldA) [Mass fraction] 97 % Salas Johns MD Work Phone: [facility] 11-10-2022 14:31-0400 Systolic blood pressure 132 mm[Hg] Salas Johns MD Work Phone: [facility] 08-11-2022 15:01-0400 Body weight 81.19 kg Franc Hills MD Work Phone: [facility] 08-11-2022 15:01-0400 Diastolic blood pressure 72 mm[Hg] Franc Hills MD Work Phone: [facility] 08-11-2022 15:01-0400 Heart rate 80 /min Franc Hills MD Work Phone: [facility] 08-11-2022 15:01-0400 Respiratory rate 16 /min Franc Hills MD Work Phone: [facility] 08-11-2022 15:01-0400 Systolic blood pressure 118 mm[Hg] Franc Hills MD Work Phone: [facility] 06-02-2022 16:47-0500 Diastolic blood pressure 78 mm[Hg] Franc Hills MD Work Phone: [facility] 06-02-2022 16:47-0500 Heart rate 61 /min Franc Hills MD Work Phone: [facility] 06-02-2022 16:47-0500 Systolic blood pressure 147 mm[Hg] Franc Hills MD Work Phone: [facility] 06-02-2022 16:35-0500 Body height 182.9 cm Franc Hills MD Work Phone: [facility] 06-02-2022 16:35-0500 Body temperature 96.91 [degF] Franc Hills MD Work Phone: [facility] 06-02-2022 16:35-0500 Body weight 83.92 kg Franc Hills MD Work Phone: [facility] 06-02-2022 16:35-0500 Respiratory rate 20 /min Franc Hills MD Work Phone: [facility] 03-24-2022 14:36-0500 Diastolic blood pressure 52 mm[Hg] [facility] Work Phone: 03-24-2022 14:36-0500 Heart rate 71 /min [facility] Work Phone: 03-24-2022 14:36-0500 Respiratory rate 18 /min [facility] Work Phone: 03-24-2022 14:36-0500 SaO2% (BldA) [Mass fraction] 100 % [facility] Work Phone: 03-24-2022 14:36-0500 Systolic blood pressure 87 mm[Hg] [facility] Work Phone: 03-24-2022 13:45-0500 Body temperature 97 [degF] [facility] Work Phone: 03-24-2022 11:19-0500 Body height 185.[address] [facility] Work Phone: 03-24-2022 11:19-0500 Body mass index (BMI) [Ratio] 22.9 kg/m2 [facility] Work Phone: 03-24-2022 11:19-0500 Body weight [address] [facility] Work Phone: 02-03-2022 12:59-0400 Body weight 83.01 kg Bonnie Sharif VINYL CUTTER.SMALL ARMS REPAIRER Work Phone: [facility] 02-03-2022 12:59-0400 Diastolic blood pressure 74 mm[Hg] Bonnie Sharif VINYL CUTTER.SMALL ARMS REPAIRER Work Phone: [facility] 02-03-2022 12:59-0400 Respiratory rate 16 /min Bonnie Sharif VINYL CUTTER.SMALL ARMS REPAIRER Work Phone: [facility] 02-03-2022 12:59-0400 Systolic blood pressure 126 mm[Hg] Bonnie Sharif VINYL CUTTER.SMALL ARMS REPAIRER Work Phone: [facility] 11-13-2021 15:06-0400 Diastolic blood pressure 54 mm[Hg] Franc Hills MD Work Phone: [facility] 11-13-2021 15:06-0400 Systolic blood pressure 104 mm[Hg] Franc Hills MD Work Phone: [facility] 11-13-2021 14:31-0400 Body temperature 97.2 [degF] Franc Hills MD Work Phone: [facility] 11-13-2021 14:31-0400 Body weight 81.19 kg Franc Hills MD Work Phone: [facility] 11-13-2021 14:31-0400 Heart rate 60 /min Franc Hills MD Work Phone: [facility] 11-13-2021 14:31-0400 Respiratory rate 16 /min Franc Hills MD Work Phone: [facility] 11-12-2021 13:10-0400 Body height 185.4 cm Micah Rosenberg MD Work Phone: [facility] 11-12-2021 13:10-0400 Body temperature 97.9 [degF] Micah Rosenberg MD Work Phone: [facility] 11-12-2021 13:10-0400 Body weight 82.1 kg Micah Rosenberg MD Work Phone: [facility] 11-12-2021 13:10-0400 Diastolic blood pressure 80 mm[Hg] Micah Rosenberg MD Work Phone: [facility] 11-12-2021 13:10-0400 Heart rate 71 /min Micah Rosenberg MD Work Phone: [facility] 11-12-2021 13:10-0400 SaO2% (BldA) [Mass fraction] 99 % Micah Rosenberg MD Work Phone: [facility] 11-12-2021 13:10-0400 Systolic blood pressure 134 mm[Hg] Micah Rosenberg MD Work Phone: [facility] 10-16-2021 15:41-0400 Diastolic blood pressure 78 mm[Hg] Franc Hills MD Work Phone: [facility] 10-16-2021 15:41-0400 Heart rate 66 /min Franc Hills MD Work Phone: [facility] 10-16-2021 15:41-0400 Systolic blood pressure 139 mm[Hg] Franc Hills MD Work Phone: [facility] 10-16-2021 15:29-0400 Body temperature 97 [degF] Franc Hills MD Work Phone: [facility] 10-16-2021 15:29-0400 Body weight 80.65 kg Franc Hills MD Work Phone: [facility] 10-16-2021 15:29-0400 Respiratory rate 20 /min Franc Hills MD Work Phone: [facility] 09-28-2021 16:13-0400 Diastolic blood pressure 76 mm[Hg] [facility] Work Phone: 09-28-2021 16:13-0400 Heart rate 81 /min [facility] Work Phone: 09-28-2021 16:13-0400 Respiratory rate 16 /min [facility] Work Phone: 09-28-2021 16:13-0400 SaO2% (BldA) [Mass fraction] 97 % [facility] Work Phone: 09-28-2021 16:13-0400 Systolic blood pressure 124 mm[Hg] [facility] Work Phone: 09-28-2021 13:22-0400 Body height 185.[address] [facility] Work Phone: 09-28-2021 13:22-0400 Body mass index (BMI) [Ratio] 48.5 kg/m2 [facility] Work Phone: 09-28-2021 13:22-0400 Body temperature 97.4 [degF] [facility] Work Phone: 09-28-2021 13:22-04[address] Body [address] [facility] Work Phone: 09-23-2021 09:13-0400 Body weight 81.65 kg Teri Yasmani VINYL CUTTER.INFO SPECIALIST Work Phone: [facility] 09-23-2021 09:13-0400 Diastolic blood pressure 78 mm[Hg] Teri Yasmani VINYL CUTTER.INFO SPECIALIST Work Phone: [facility] 09-23-2021 09:13-0400 Heart rate 64 /min Teri Yasmani VINYL CUTTER.INFO SPECIALIST Work Phone: [facility] 09-23-2021 09:13-0400 Respiratory rate 16 /min Teri Yasmani VINYL CUTTER.INFO SPECIALIST Work Phone: [facility] 09-23-2021 09:13-0400 SaO2% (BldA) [Mass fraction] 98 % Teri Yasmani VINYL CUTTER.INFO SPECIALIST Work Phone: [facility] 09-23-2021 09:13-0400 Systolic blood pressure 132 mm[Hg] Teri Yasmani VINYL CUTTER.INFO SPECIALIST Work Phone: [facility] 08-22-2021 18:14-0400 Diastolic blood pressure 77 mm[Hg] Franc Hills MD Work Phone: [facility] 08-22-2021 18:14-0400 Heart rate 65 /min Franc Hills MD Work Phone: [facility] 08-22-2021 18:14-0400 Systolic blood pressure 150 mm[Hg] Franc Hills MD Work Phone: [facility] 08-22-2021 17:45-0400 Body temperature 97.81 [degF] Franc Hills MD Work Phone: [facility] 08-22-2021 17:45-0400 Body weight 81.19 kg Franc Hills MD Work Phone: [facility] 08-22-2021 17:45-0400 Respiratory rate 16 /min Franc Hills MD Work Phone: [facility] 08-22-2021 17:45-0400 SaO2% (BldA) [Mass fraction] 96 % Franc Hills MD Work Phone: [facility] 08-16-2021 13:17-0400 Body height 185.4 cm Mj Dos Santos MD Work Phone: [facility] 08-16-2021 13:17-0400 Body weight 81.19 kg Mj Dos Santos MD Work Phone: [facility] 08-16-2021 13:17-0400 Diastolic blood pressure 73 mm[Hg] Mj Dos Santos MD Work Phone: [facility] 08-16-2021 13:17-0400 Heart rate 63 /min Mj Dos Santos MD Work Phone: [facility] 08-16-2021 13:17-0400 SaO2% (BldA) [Mass fraction] 97 % Mj Dos Santos MD Work Phone: [facility] 08-16-2021 13:17-0400 Systolic blood pressure 141 mm[Hg] Mj Dos Santos MD Work Phone: [facility] 07-03-2021 12:44-0400 Body weight 83.46 kg Sara Older VINYL CUTTER.INFO SPECIALIST Work Phone: [facility] 07-03-2021 12:44-0400 Diastolic blood pressure 62 mm[Hg] Sara Older VINYL CUTTER.INFO SPECIALIST Work Phone: [facility] 07-03-2021 12:44-0400 Heart rate 66 /min Sara Older VINYL CUTTER.INFO SPECIALIST Work Phone: [facility] 07-03-2021 12:44-0400 Respiratory rate 16 /min Sara Older VINYL CUTTER.INFO SPECIALIST Work Phone: [facility] 07-03-2021 12:44-0400 SaO2% (BldA) [Mass fraction] 97 % Sara Older VINYL CUTTER.INFO SPECIALIST Work Phone: [facility] 07-03-2021 12:44-0400 Systolic blood pressure 112 mm[Hg] Sarashannon Baxter APRN.INFO SPECIALIST Work Phone: [facility] Encounters Encounter Date Encounter Type Care Provider Facility Start: 11-19-2024 End: 11-20-2024 Emergency department patient visit Dr. 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; IFG (impaired fasting glucose); Primary hypertension; Vitamin D deficiency; Insomnia, unspecified type Start: 11-15-2024 End: 11-15-2024 ambulatory ZENY LAM Facility:[facility] Start: 11-09-2024 End: 11-09-2024 ambulatory [facility] Facility:[facility] Start: 10-28-2024 End: 10-28-2024 Telephone encounter Zeny Lam APRN.INFO SPECIALIST Work Phone: [facility] [place] Comment on above: Anticoagulation Start: 10-28-2024 End: 10-28-2024 ambulatory ZENY LAM Facility:[facility] Start: 10-26-2024 End: 10-26-2024 Telephone encounter Shruti Carrington APRN.INFO SPECIALIST Work Phone: Pulmonary Medicine Comment on above: Patient Update; Than k you Start: 10-25-2024 End: 10-26-2024 Telephone encounter Zeny Lam APRN.INFO SPECIALIST Work Phone: [facility] [place] Comment on above: Medication Question; bp reading Start: 10-22-2024 End: 10-24-2024 ambulatory Mirlande Funez MD Work Phone: Pulmonary Medicine Comment on above: Chest X-ray Start: 10-21-2024 End: 10-24-2024 ambulatory [facility] [place] Comment on above: Covid shot Start: 10-20-2024 End: 10-20-2024 ambulatory MIRLANDE FUNEZ Facility:[facility] Start: 10-20-2024 End: 10-20-2024 Subsequent hospital visit by physician Mala [facility] [place] [facility] Work Phone: Radiology Comment on above: SOB (shortness of br eath) [R06.02] Start: 10-20-2024 End: 10-20-2024 Patient encounter procedure Mirlande Funez MD Work Phone: Pulmonary Medicine Comment on above: SOB (shortness of br eath) (Primary Dx); Mild persistent asthma without complication (HCC); History of pulmonary embolism Start: 10-20-2024 End: 10-20-2024 ambulatory ZENY LAM Facility:[facility] Start: 10-17-2024 End: 10-18-2024 Telephone encounter Zeny Lam APRN.INFO SPECIALIST Work Phone: [facility] [place] Comment on above: Medication Question Start: 10-14-2024 End: 10-14-2024 Telephone encounter Zeny Lam APRN.INFO SPECIALIST Work Phone: [facility] [place] Comment on above: Anticoagulation Start: 10-14-2024 End: 10-14-2024 ambulatory ZENY LAM Facility:[facility] Start: 10-10-2024 End: 10-11-2024 Telephone encounter Zeny Lam APRN.INFO SPECIALIST Work Phone: [facility] [place] Comment on above: Patient Update Start: 10-09-2024 End: 10-10-2024 ambulatory [facility] [place] Comment on above: Olmesartan Nifedipine Start: 10-05-2024 End: 10-05-2024 Telephone encounter Zeny Lam APRN.INFO SPECIALIST Work Phone: [facility] [place] Comment on [...] 09-21-2024 End: 09-23-2024 Telephone encounter Zeny Lam VINYL CUTTER.INFO SPECIALIST Work Phone: [facility] [place] Comment on above: Anticoagulation Start: 09-21-2024 End: 09-21-2024 ambulatory [facility] Facility:[facility] Start: 09-14-2024 End: 09-19-2024 Telephone encounter Mirlande Funez MD Work Phone: Pulmonary Medicine Comment on above: Patient Question Orders Start: 09-12-2024 End: 09-12-2024 Telephone encounter Zeny Lam VINYL CUTTER.INFO SPECIALIST Work Phone: [facility] [place] Comment on above: Patient Question Start: 09-08-2024 End: 09-09-2024 Refill Zeny Lam VINYL CUTTER.INFO SPECIALIST Work Phone: [facility] [place] Comment on above: Refill Request Change Pharmacy Start: 09-07-2024 End: 09-07-2024 Telephone encounter Zeny Lam VINYL CUTTER.INFO SPECIALIST Work Phone: [facility] [place] Comment on above: Anticoagulation Start: 09-07-2024 End: 09-07-2024 [facility] Facility:[facility] Start: 09-05-2024 End: 09-06-2024 Refill Bonnie Sharif VINYL CUTTER.SMALL ARMS REPAIRER Work Phone: [facility] [place] Comment on above: Refill Request Start: 08-24-2024 End: 08-24-2024 [facility] Facility:[facility] Start: 08-21-2024 End: 08-22-2024 ambulatory [facility] [place] Comment on above: Nasacort Start: 08-19-2024 End: 08-22-2024 Telephone encounter Zeny Lam VINYL CUTTER.INFO SPECIALIST Work Phone: [facility] [place] Comment on above: Patient Question Start: 08-15-2024 End: 08-15-2024 ambulatory [facility] Facility:[facility] Start: 08-15-2024 End: 08-15-2024 Patient encounter procedure Zeny Lam APRN.INFO SPECIALIST Work Phone: [facility] [place] Comment on above: Medicare annual well ness [...] Zeny Lam APRN.CNP Work Phone: [facility] [place] Start: 08-10-2024 End: 08-10-2024 Telephone encounter Zeny Lam APRN.INFO SPECIALIST Work Phone: [facility] [place] Comment on above: Anticoagulation Start: 08-10-2024 End: 08-10-2024 ambulatory ZENY LAM Facility:[facility] Start: 08-09-2024 End: 08-09-2024 Patient encounter procedure Walt [facility] Comment on above: Chronic low back sharon n without sciatica, unspecified back pain laterality (Primary Dx) Start: 08-09-2024 End: 08-09-2024 ambulatory WALT YANG Facility:[facility] Start: 08-08-2024 End: 08-08-2024 Patient encounter procedure Sunny Mercedes MD Work Phone: Cardiology Comment on above: PAD (peripheral bart ry disease) (Primary Dx); Bilateral carotid artery stenosis; Primary hypertension; Mixed hyperlipidemia; History of left-sided carotid endarterectomy; Recurrent pulmonary embolism (HCC) Start: 08-08-2024 End: 08-08-2024 ambulatory SUNNY MERCEDES Facility:[facility] Start: 08-06-2024 End: 08-06-2024 ambulatory Tonie Mai RN NURSE SPRAY DRY OPERATOR Comment on above: Patient Update Start: 08-05-2024 End: 08-05-2024 ambulatory [facility] [place] Comment on above: Test today Start: 08-04-2024 End: 08-04-2024 Patient encounter procedure [facility] Work Phone: [facility]UL[facility] Start: 08-04-2024 End: 08-08-2024 ambulatory [facility] Work Phone: [facility] Comment on above: Spirometry Pulmonary Function T est Start: 07-28-2024 End: 07-28-2024 ambulatory GAYLE GREEN Facility:[facility] Start: 07-27-2024 End: 07-27-2024 Telephone encounter Zeny Lam APRN.CNP Work Phone: [facility] [place] Comment on above: Anticoagulation Start: 07-27-2024 End: 07-27-2024 ambulatory ZENY LAM Facility:[facility] Start: 07-26-2024 End: 07-26-2024 Patient encounter procedure Walt Yang [facility] Comment on above: Chronic low back sharon n without sciatica, unspecified back pain laterality (Primary Dx) Start: 07-26-2024 End: 07-26-2024 ambulatory WALT YANG [facility] Start: 07-25-2024 End: 07-25-2024 Patient encounter procedure Zeny Lam APRN.INFO SPECIALIST Work Phone: [facility] [place] Comment on above: Shortness of breath (Primary Dx); Primary hypertension; Recurrent pulmonary embolism (HCC); Chronic low back pain without sciatica, unspecified back pain laterality; Neck pain Start: 07-25-2024 End: 07-25-2024 ambulatory ZENY LAM Facility:[facility] Start: 07-19-2024 End: 09-18-2024 Follow-up encounter Teri [...] Start: 07-18-2024 End: 07-18-2024 ambulatory ZENY LAM Facility:[facility] Start: 07-18-2024 End: 07-18-2024 [facility] Start: 07-18-2024 End: 07-18-2024 Subsequent hospital visit by physician [facility] Work Phone: Nuclear Medicine Comment on above: Shortness of breath [R06.02] Start: 07-13-2024 End: 07-13-2024 Follow-up encounter Gabby Rm LPN [facility] [place] Comment on above: Opened In Error Start: 07-13-2024 End: 07-13-2024 Telephone encounter Zeny Lam APRN.INFO SPECIALIST Work Phone: [facility] [place] Comment on above: Anticoagulation Start: 07-13-2024 End: 07-13-2024 ambulatory ZENY LAM Facility:[facility] Start: 07-11-2024 End: 07-11-2024 ambulatory Nurse [facility] Work Phone: Cardiology Comment on above: Stress Test Instruct ions for 07/18/24 Start: 07-11-2024 End: 07-11-2024 E-mail encounter from caregiver Nurse Card Wstr Work Phone: Cardiology Start: 07-07-2024 End: 07-22-2024 Telephone encounter Zeny Lam APRN.INFO SPECIALIST Work Phone: [facility] [place] Comment on above: Patient Update Start: 07-01-2024 End: 07-01-2024 Refill Zeny Lam APRN.INFO SPECIALIST Work Phone: [facility] [place] Comment on above: Med Change Request Start: 06-29-2024 End: 06-30-2024 Telephone encounter Zeny Lam APRN.INFO SPECIALIST Work Phone: [facility] [place] Comment on above: Anticoagulation Start: 06-29-2024 End: 06-29-2024 ambulatory ZENY LAM Facility:[facility] Start: 06-25-2024 End: 06-27-2024 Refill Zeny Lam APRN.INFO SPECIALIST Work Phone: [facility] [place] Comment on above: Refill Request Start: 06-23-2024 End: 07-01-2024 ambulatory [facility] Provider [facility] [place] Comment on above: Shortness of breath Start: 06-20-2024 End: 06-21-2024 Telephone encounter Zeny Lam APRN.INFO SPECIALIST Work Phone: [facility] [place] Start: 06-16-2024 End: 08-16-2024 Follow-up encounter Bonnie Sharif APRN.SMALL ARMS REPAIRER Work Phone: [facility] [place] Start: 06-15-2024 End: 06-15-2024 Telephone encounter Zeny Lam APRN.INFO SPECIALIST Work Phone: [facility] [place] Comment on above: Anticoagulation Start: 06-15-2024 End: 06-15-2024 ambulatory [facility] Provider [facility] [place] Comment on above: Acupuncture Start: 06-10-2024 End: 06-10-2024 ambulatory [facility] Provider [facility] [place] Comment on above: Low pressure causing shortness of breath Start: 06-08-2024 End: 06-08-2024 Refill Gabby Rm LPN [facility] [place] Comment on above: Refill Request Shortness of breath (Primary Dx); Primary hypertension; Chronic low back pain without sciatica, unspecified back pain laterality; Bilateral carotid artery stenosis; Vision abnormalities Start: 06-07-2024 End: 06-08-2024 Refill Arti Baxter APRN.INFO SPECIALIST Work Phone: [facility] [place] Comment on above: Refill Request Start: 06-06-2024 End: 06-06-2024 Telephone encounter Zeny Lam APRN.INFO SPECIALIST Work Phone: [facility] [place] Comment on above: Patient Update; Imelda ent Question Start: 06-01-2024 End: 06-02-2024 Telephone encounter Mani Edwards MD Work Phone: [facility] [place] Comment on above: Anticoagulation Start: 06-01-2024 End: 06-01-2024 ambulatory ZENY LAM Facility:[facility] Start: 05-30-2024 End: 06-03-2024 Telephone encounter Zeny Lam APRN.INFO SPECIALIST Work Phone: [facility] [place] Comment on above: questions regarding testing Start: 05-24-2024 End: 05-24-2024 Patient encounter procedure Edgar Loaiza DO Work Phone: Vascular Surgery Comment on above: PAD (peripheral bart ry disease) (HCC) (Primary Dx); Stenosis of left carotid artery Start: 05-24-2024 End: 05-24-2024 ambulatory EDGAR LOAIZA Facility:[facility] Start: 05-19-2024 End: 05-19-2024 ambulatory GAYLE TESTKARMA Facility:[facility] Start: 05-19-2024 End: 05-19-2024 Patient encounter procedure Gayle Quirozkarma Work Phone: Podiatry Comment on above: Onychomycosis (Prima ry Dx); Pain in toe of left foot; Pain in toe of right foot; PAD (peripheral artery disease) (HCC); Hammer toe, unspecified laterality Start: 05-18-2024 End: 05-18-2024 Telephone encounter Zeny Lam APRN.INFO SPECIALIST Work Phone: [facility] [place] Comment on above: Anticoagulation Start: 05-18-2024 End: 05-18-2024 ambulatory ZENY LAM Facility:[facility] Start: 05-17-2024 End: 05-17-2024 ambulatory TERI GRUBER Facility:[facility] Start: 05-17-2024 End: 05-17-2024 Office outpatient visit 25 minutes Teri Gruber APRN.INFO SPECIALIST Work Phone: [facility] [place] Comment on above: Shortness of breath (Primary Dx); Chronic low back pain without sciatica, unspecified back pain laterality; Neck pain Start: 05-11-2024 End: 05-11-2024 Telephone encounter Zeny Lam APRN.INFO SPECIALIST Work Phone: [facility] [place] Comment on above: vaccine question Start: 05-10-2024 End: 05-10-2024 Telephone encounter Zeny Genaro VINYL CUTTER.INFO SPECIALIST Work Phone: [facility] [place] Comment on above: Anticoagulation Start: 05-10-2024 End: 05-10-[address] [facility] Facility:[facility] Start: 04-27-2024 End: 04-27-2024 Telephone encounter Zeny Genaro VINYL CUTTER.INFO SPECIALIST Work Phone: [facility] [place] Comment on above: Anticoagulation Start: 04-27-2024 End: 04-27-[address] [facility] Facility:[facility] Start: 04-12-2024 End: 04-12-2024 Telephone encounter Zeny Genaro VINYL CUTTER.INFO SPECIALIST Work Phone: [facility] [place] Comment on above: Anticoagulation Start: 04-12-2024 End: 04-12-2024 [facility] Facility:[facility] Start: 03-25-2024 End: 03-25-2024 Telephone encounter Zeny Genaro VINYL CUTTER.INFO SPECIALIST Work Phone: [facility] [place] Comment on above: Patient Question Start: 03-24-2024 End: 03-24-2024 Telephone encounter Zeny Genaro VINYL CUTTER.INFO SPECIALIST Work Phone: [facility] [place] Comment on above: Orders Anticoagulation Start: 03-24-2024 End: 03-24-2024 ambulatory ZENY ELIZABETHR Facility:[facility] Start: 03-22-2024 End: 03-25-2024 Telephone encounter Zeny Genaro VINYL CUTTER.INFO SPECIALIST Work Phone: [facility] [place] Comment on above: Patient Question Patient Question (di toni gilliam) Start: 03-15-2024 End: 03-16-2024 Refill Zeny Genaro VINYL CUTTER.INFO SPECIALIST Work Phone: [facility] [place] Comment on above: Refill Request Start: 03-10-2024 End: 03-11-2024 Telephone encounter Zeny Genaro VINYL CUTTER.INFO SPECIALIST Work Phone: [facility] [place] Comment on above: Anticoagulation Start: 03-10-2024 End: 03-10-2024 ambulatory ZENY LAM Facility:[facility] Start: 03-04-2024 End: 03-08-2024 ambulatory Zeny Genaro VINYL CUTTER.INFO SPECIALIST Work Phone: [facility] [place] Start: 03-04-2024 End: 03-09-2024 Patient encounter procedure Zeny Genaro VINYL CUTTER.INFO SPECIALIST Work Phone: [facility] [place] Comment on above: Update my INR appoin tments for next year. Refill Request Start: 02-29-2024 End: 02-29-2024 ambulatory ZENY LAM Facility:[facility] Start: 02-29-2024 End: 02-29-2024 Subsequent hospital visit by physician Cheli [facility] (I-Stat) Work Phone: Cat Scan Comment on above: Primary hypertension [I10] Start: 02-25-2024 End: 02-25-2024 Telephone encounter Zeny Lam APRN.INFO SPECIALIST Work Phone: [facility] [place] Comment on above: Anticoagulation Start: 02-25-2024 End: 02-25-2024 [facility] ZENY LAM Facility:[facility] Start: 02-15-2024 End: 02-15-2024 Patient encounter procedure Zeny Elizabethr VINYL CUTTER.INFO SPECIALIST Work Phone: [facility] [place] Comment on above: Primary hypertension (Primary Dx); Dizziness; Chronic low back pain without sciatica, unspecified back pain laterality; Neck pain; Recurrent pulmonary embolism (HCC) Start: 02-15-2024 End: 02-15-2024 [facility] ZENY LAM Facility:[facility] Start: 02-15-2024 End: 02-16-2024 Telephone encounter Zeny Genaro VINYL CUTTER.INFO SPECIALIST Work Phone: [facility] [place] Comment on above: Medication Question Start: 02-14-2024 End: 02-15-2024 ambulatory Zeny Elizabethr VINYL CUTTER.INFO SPECIALIST Work Phone: [facility] [place] Comment on above: Prescription renewal s. Refill Request Start: 02-09-2024 End: 02-09-2024 Telephone encounter Zeny Lam VINYL CUTTER.INFO SPECIALIST Work Phone: [facility] [place] Comment on above: Anticoagulation Start: 02-09-2024 End: 02-09-2024 ambulatory ZENY GENARO Facility:[facility] Start: 02-07-2024 End: 02-08-2024 ambulatory Zeny Genaro VINYL CUTTER.INFO SPECIALIST Work Phone: [facility] [place] Comment on above: Neck X-ray results Start: 02-04-2024 End: 02-05-2024 Telephone encounter Zeny Genaro VINYL CUTTER.INFO SPECIALIST Work Phone: [facility] [place] Comment on above: Patient Question Start: 02-01-2024 End: 02-01-2024 ambulatory ZENY GENARO Facility:[facility] Start: 02-01-2024 End: 02-01-2024 Subsequent hospital visit by physician Xr [facility] [place] Work Phone: Radiology Comment on above: Neck pain [M54.2] Start: 02-01-2024 End: 02-01-2024 Telephone encounter Zeny Genaro VINYL CUTTER.INFO SPECIALIST Work Phone: [facility] [place] Start: 01-30-2024 End: 02-01-2024 ambulatory Zeny Genaro VINYL CUTTER.INFO SPECIALIST Work Phone: [facility] [place] Comment on above: Blood pressure the o ther way. Start: 01-29-2024 End: 01-29-2024 ambulatory Zeny Genaro VINYL CUTTER.INFO SPECIALIST Work Phone: [facility] [place] Comment on above: Blood pressure Start: 01-29-2024 End: 02-01-2024 Telephone encounter Zeny Genaro VINYL CUTTER.INFO SPECIALIST Work Phone: [facility] [place] Comment on above: my chart message con verted to phone note, blood pressure is Start: 01-28-2024 End: 01-29-2024 Telephone encounter Zeny Genaro VINYL CUTTER.INFO SPECIALIST Work Phone: [facility] [place] Comment on above: blood pressure eleva tion Start: 01-26-2024 End: 01-26-2024 Telephone encounter Zeny Genaro VINYL CUTTER.INFO SPECIALIST Work Phone: [facility] [place] Comment on above: Blood Pressure; Anti coagulation Start: 01-26-2024 End: 01-26-2024 ambulatory ZENY GENARO Facility:[facility] Start: 01-20-2024 End: 01-20-2024 Patient encounter procedure Zeny Genaro VINYL CUTTER.INFO SPECIALIST Work Phone: [facility] [place] Comment on above: Primary hypertension (Primary Dx); Compression fracture of L1 vertebra with routine healing, subsequent encounter; Chronic bilateral low back pain with bilateral sciatica; Other fatigue; SOB (shortness of breath) Start: 01-20-2024 End: [facility] Start: 01-12-2024 End: 01-12-2024 Telephone encounter Zeny Genaro VINYL CUTTER.INFO SPECIALIST Work Phone: [facility] [place] Comment on above: Anticoagulation Start: 01-12-2024 End: [facility]-12-[facility]24 [facility] Start: 01-11-2024 End: 01-11-2024 Telephone encounter Zeny Genaro VINYL CUTTER.INFO SPECIALIST Work Phone: [facility] [place] Comment on above: Patient Update Start: 01-10-2024 End: 01-11-2024 ambulatory Zeny Genaro VINYL CUTTER.INFO SPECIALIST Work Phone: [facility] [place] Start: 01-10-2024 End: 01-11-2024 Emergency department patient visit Zeny Genaro VINYL CUTTER.INFO SPECIALIST Work Phone: [facility] [place] Comment on above: Emergency room visit Start: 01-08-2024 End: 01-08-2024 Emergency department patient visit [facility] Facility:[facility] Start: 01-06-2024 End: 01-06-2024 Patient encounter procedure Zeny Genaro VINYL CUTTER.INFO SPECIALIST Work Phone: [facility] [place] Comment on above: Other fatigue (Prima ry Dx); Side effect of medication; SOB (shortness of breath); Screening for depression Start: 01-06-2024 End: 01-06-2024 [facility] ZENY GENARO Facility:[facility] Start: 01-05-2024 End: 01-05-2024 Telephone encounter Zeny Genaro VINYL CUTTER.INFO SPECIALIST Work Phone: [facility] [place] Comment on above: Results Start: 01-05-2024 End: 01-05-2024 ambulatory ZENY GENARO Facility:[facility] Start: 01-02-2024 End: 01-04-2024 ambulatory Zeny Genaro VINYL CUTTER.INFO SPECIALIST Work Phone: [facility] [place] Comment on above: Insurance Start: 01-01-2024 End: 01-01-2024 Telephone encounter Zeny Genaro VINYL CUTTER.INFO SPECIALIST Work Phone: [facility] [place] Comment on above: Anticoagulation Start: 01-01-2024 End: 01-01-2024 ambulatory ZENY GENARO Facility:[facility] Start: 12-28-2023 End: 12-28-2023 Telephone encounter Zeny Genaro VINYL CUTTER.INFO SPECIALIST Work Phone: [facility] [place] Comment on above: Anticoagulation Start: 12-28-2023 End: 12-28-2023 ambulatory ZENY GENARO Facility:[facility] Start: 12-27-2023 End: 12-28-2023 Refill Zeyn Genaro VINYL CUTTER.INFO SPECIALIST Work Phone: [facility] [place] Comment on above: Refill Request Start: 12-21-2023 End: 12-21-2023 Telephone encounter Zeny Genaro VINYL CUTTER.INFO SPECIALIST Work Phone: [facility] [place] Comment on above: Anticoagulation Start: 12-21-2023 End: 12-21-2023 ambulatory ZENY GENARO Facility:[facility] Start: 12-14-2023 End: 12-14-2023 Patient encounter procedure Zeny Genaro VINYL CUTTER.INFO SPECIALIST Work Phone: [facility] [place] Comment on above: Primary hypertension (Primary Dx); Pain, dental; Compression fracture of L1 vertebra with routine healing, subsequent encounter; Chronic low back pain without sciatica, unspecified back pain laterality Start: 12-14-2023 End: 12-15-2023 ambulatory Zeny Genaro VINYL CUTTER.INFO SPECIALIST Work Phone: [facility] [place] Comment on above: No questions Start: 12-10-2023 End: 12-10-2023 Telephone encounter Zeny Genaro VINYL CUTTER.INFO SPECIALIST Work Phone: [facility] [place] Comment on above: Patient Update Start: 12-08-2023 End: 12-08-2023 Refill Zeny Genaro VINYL CUTTER.INFO SPECIALIST Work Phone: [facility] [place] Comment on above: Refill Request Anticoagulation Start: 12-02-2023 End: 12-02-2023 Refill Zeny Genaro VINYL CUTTER.INFO SPECIALIST Work Phone: [facility] [place] Comment on above: Refill Request Start: 11-24-2023 End: 11-24-2023 Telephone encounter Zeny Genaro VINYL CUTTER.INFO SPECIALIST Work Phone: [facility] [place] Comment on above: Results Start: 11-24-2023 End: 11-24-2023 ambulatory ZENY GENARO Facility:[facility] Start: 11-23-2023 End: 11-23-2023 Telephone encounter Zeny Genaro VINYL CUTTER.INFO SPECIALIST Work Phone: [facility] [place] Comment on above: Patient Question Start: 11-16-2023 End: 11-16-2023 Patient encounter procedure Micah Portillo APRN.INFO SPECIALIST, DNP Work Phone: Urology Comment on above: Benign prostatic hyp erplasia with nocturia (Primary Dx); Urgency of urination Start: 11-12-2023 End: 11-12-2023 ambulatory Zeny Genaro VINYL CUTTER.INFO SPECIALIST Work Phone: [facility] [place] Start: 11-12-2023 Follow-up encounter Zeny Cleav er VINYL CUTTER.INFO SPECIALIST Work Phone: [facility] [place] Comment on above: Follow up out of Net work Acupuncture Schedule Start: 11-12-2023 End: 11-12-2023 Patient encounter procedure Walt [facility] Comment on above: Chronic low back sharon n without sciatica, unspecified back pain laterality (Primary Dx) Start: 11-10-2023 ambulatory Zeny Genaro VINYL CUTTER.INFO SPECIALIST Work Phone: [facility] [place] Start: 11-10-2023 Follow-up encounter Zeny Cleav er VINYL CUTTER.INFO SPECIALIST Work Phone: [facility] [place] Comment on above: Acupuncture follow u p Start: 11-10-2023 Telephone encounter Zeny Cleav er VINYL CUTTER.INFO SPECIALIST Work Phone: [facility] Comment on above: Anticoagulation Start: 10-30-2023 Telephone encounter Zeny Cleav er VINYL CUTTER.INFO SPECIALIST Work Phone: [facility] [place] Comment on above: Patient Update (INR) Start: 10-29-2023 Refill Zeny Genaro VINYL CUTTER.INFO SPECIALIST Work Phone: [facility] [place] Comment on above: Refill Request Start: 10-23-2023 Telephone encounter Zeny Cleav er VINYL CUTTER.INFO SPECIALIST Work Phone: [facility] [place] Comment on above: Anticoagulation Start: 10-06-2023 Refill Zeny Genaro VINYL CUTTER.INFO SPECIALIST Work Phone: [facility] [place] Comment on above: Refill Request Start: 10-05-2023 Telephone encounter Zeny Cleav er VINYL CUTTER.INFO SPECIALIST Work Phone: [facility] [place] Start: 09-30-2023 Refill Zeny Genaro VINYL CUTTER.INFO SPECIALIST Work Phone: [facility] [place] Comment on above: Refill Request Start: 09-25-2023 Telephone encounter Zeny Cleav er VINYL CUTTER.INFO SPECIALIST Work Phone: [address] [place] [address] Comment on above: Patient Update Start: 09-24-2023 Telephone encounter Zeny Cleav er VINYL CUTTER.INFO SPECIALIST Work Phone: [facility] [place] Comment on above: letter should be com ing to provider Start: 09-23-2023 Telephone encounter Zeny Cleav er VINYL CUTTER.INFO SPECIALIST Work Phone: [facility] [place] Comment on above: Anticoagulation Start: 09-15-2023 ambulatory Zeny Genaro VINYL CUTTER.INFO SPECIALIST Work Phone: [facility] [place] Start: 09-15-2023 End: 09-15-2023 Patient encounter procedure Zeny Genaro VINYL CUTTER.INFO SPECIALIST Work Phone: [facility] [place] Comment on above: Chronic bilateral lo w back pain with bilateral sciatica (Primary Dx); Compression fracture of L1 vertebra with routine healing, subsequent encounter; Mixed hyperlipidemia; Primary hypertension; Kidney insufficiency; Impaired fasting glucose; FCI (current) use of anticoagulants; Recurrent pulmonary embolism (HCC); Vitamin D deficiency; Encounter for therapeutic drug monitoring Acupuncture appointm ent Start: 09-15-2023 Telephone encounter Zeny Cleav er VINYL CUTTER.INFO SPECIALIST Work Phone: [facility] [place] Comment on above: Orders Start: 09-11-2023 Telephone encounter Zeny Cleav er VINYL CUTTER.INFO SPECIALIST Work Phone: [facility] [place] Comment on above: Anticoagulation Patient Update Start: 09-08-2023 Telephone encounter Zeny Cleav er VINYL CUTTER.INFO SPECIALIST Work Phone: [facility] [place] Comment on above: Opened In Error Letter Start: 09-07-2023 Telephone encounter Zeny Cleav er VINYL CUTTER.INFO SPECIALIST Work Phone: [facility] [place] Comment on above: Medication Problem Start: 09-06-2023 Refill Zeny Genaro VINYL CUTTER.INFO SPECIALIST Work Phone: [facility] [place] Comment on above: Med Change Request Start: 09-04-2023 Telephone encounter Zeny Cleav er VINYL CUTTER.INFO SPECIALIST Work Phone: [facility] [place] Comment on above: Anticoagulation Letter Start: 09-02-2023 Telephone encounter Zeny Cleav er VINYL CUTTER.INFO SPECIALIST Work Phone: [facility] [place] Comment on above: Patient Question Start: 08-28-2023 Telephone encounter Zeny Cleav er VINYL CUTTER.INFO SPECIALIST Work Phone: [facility] [place] Comment on above: Question Start: 08-27-2023 Telephone encounter Zeny Cleav er VINYL CUTTER.INFO SPECIALIST Work Phone: [facility] [place] Comment on above: Patient Question Start: 08-27-2023 End: 08-27-2023 Patient encounter procedure Irene Moraes MD Work Phone: Integrative Medicine Comment on above: Compression fracture of L1 vertebra with routine healing, subsequent encounter; Chronic low back pain without sciatica, unspecified back pain laterality Start: 08-26-2023 Telephone encounter Zeny Cleav er VINYL CUTTER.INFO SPECIALIST Work Phone: [facility] [place] Comment on above: Results Start: 08-25-2023 End: 08-25-2023 Subsequent hospital visit by physician Mala [facility] [place] Work Phone: Radiology Comment on above: SOB (shortness of br eath) [R06.02] Start: 08-25-2023 End: 08-25-2023 Patient encounter procedure Zeny Genaro VINYL CUTTER.KAYLA Work Phone: [facility] [place] Comment on above: Chronic low back sharon n without sciatica, unspecified back pain laterality (Primary Dx); Compression fracture of L1 vertebra with routine healing, subsequent encounter; Primary hypertension; SOB (shortness of breath); History of smoking; BPH with obstruction/lower urinary tract symptoms Start: 08-24-2023 Telephone encounter Zeny Cleav er VINYL CUTTER.INFO SPECIALIST Work Phone: [facility] [place] Comment on above: Anticoagulation Start: 08-23-2023 ambulatory Zeny Genaro VINYL CUTTER.INFO SPECIALIST Work Phone: [facility] [place] Comment on above: Update on my fall co ndition Start: 08-18-2023 Refill Zeny Genaro VINYL CUTTER.INFO SPECIALIST Work Phone: [facility] [place] Comment on above: Refill Request Start: 08-14-2023 Telephone encounter Zeny Cleav er VINYL CUTTER.INFO SPECIALIST Work Phone: [facility] [place] Comment on above: Anticoagulation Start: 08-12-2023 Refill Zeny Genaro VINYL CUTTER.INFO SPECIALIST Work Phone: [facility] [place] Comment on above: Refill Request Start: 08-11-2023 Refill Zeny Genaro VINYL CUTTER.INFO SPECIALIST Work Phone: [facility] [place] Comment on above: Refill Request Start: 08-10-2023 End: 08-10-2023 Patient encounter procedure Micah Portillo APRN.INFO SPECIALIST, DNP Work Phone: Urology Comment on above: Benign prostatic hyp erplasia with nocturia (Primary Dx) Start: 08-04-2023 Refill Zeny Genaro VINYL CUTTER.INFO SPECIALIST Work Phone: [facility] [place] Comment on above: Refill Request Start: 07-30-2023 Telephone encounter Zeny Cleav er VINYL CUTTER.INFO SPECIALIST Work Phone: [facility] Comment on above: Anticoagulation Start: 07-29-2023 ambulatory Zeny Genaro VINYL CUTTER.INFO SPECIALIST Work Phone: [facility] [place] Comment on above: Off and on again Cum josias Start: 07-27-2023 End: 07-27-2023 Patient encounter procedure Zeny Genaro VINYL CUTTER.INFO SPECIALIST Work Phone: [facility] [place] Comment on above: Compression fracture of L1 vertebra with routine healing, subsequent encounter (Primary Dx); Chronic low back pain without sciatica, unspecified back pain laterality; Acute bilateral low back pain with bilateral sciatica; Urinary dysfunction; Primary hypertension Start: 07-26-2023 Refill Zeny Genaro VINYL CUTTER.INFO SPECIALIST Work Phone: [facility] [place] Comment on above: Refill Request Start: 07-23-2023 Refill Zeny Genaro VINYL CUTTER.INFO SPECIALIST Work Phone: [facility] [place] Comment on above: Med Change Request Start: 07-21-2023 End: 07-21-2023 Patient encounter procedure Edgar Loaiza DO Work Phone: Vascular Surgery Comment on above: 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); PAD (peripheral artery disease) ([facility]) Start: 07-20-2023 Refill Zeny Genaro VINYL CUTTER.INFO SPECIALIST Work Phone: [facility] [place] Comment on above: Refill Request Start: 07-19-2023 ambulatory Zeny Genaro VINYL CUTTER.INFO SPECIALIST Work Phone: [facility] Start: 07-19-2023 Emergency department patient visit Zeny Genaro VINYL CUTTER.INFO SPECIALIST Work Phone: [facility] [place] Comment on above: Physical therapist suad thomas emergency room back findings Start: 07-18-2023 End: 07-18-2023 Patient encounter procedure Franc Hills MD Work Phone: [facility] [place] Comment on above: Compression fracture of L1 vertebra with routine healing, subsequent encounter (Primary Dx); Chronic bilateral low back pain with bilateral sciatica; BPH with obstruction/lower urinary tract symptoms Start: 07-17-2023 Refill Zeny Genaro VINYL CUTTER.INFO SPECIALIST Work Phone: [facility] [place] Comment on above: Refill Request Start: 07-17-2023 Refill Zeny Genaro VINYL CUTTER.INFO SPECIALIST Work Phone: [facility] Comment on above: Refill Request Start: 07-16-2023 ambulatory Mckinley Leal MD Work Phone: [facility] Start: 07-16-2023 Emergency department patient visit Mckinley Leal MD Work Phone: Pain Management Comment on above: Back issues after vi sit to physical therapy and your emergency room Start: 07-15-2023 Telephone encounter Zeny Cleav er VINYL CUTTER.INFO SPECIALIST Work Phone: [facility] Comment on above: Anticoagulation Start: 07-15-2023 End: 07-15-2023 ambulatory Brian Carvajal [facility] Comment on above: Chronic low back sharon n without sciatica, unspecified back pain laterality; Compression fracture of L1 vertebra with routine healing, subsequent encounter; Sciatic leg pain Start: 07-13-2023 Refill Zeny Genaro VINYL CUTTER.INFO SPECIALIST Work Phone: [facility] Comment on above: Refill Request Start: 07-06-2023 Refill Zeny Genaro VINYL CUTTER.INFO SPECIALIST Work Phone: [facility] [place] Comment on above: Patient Question; Re fill Request Start: 06-30-2023 Telephone encounter Zeny Cleav er VINYL CUTTER.INFO SPECIALIST Work Phone: [facility] Comment on above: Anticoagulation Start: 06-29-2023 End: 06-29-2023 Patient encounter procedure Zeny Genaro VINYL CUTTER.INFO SPECIALIST Work Phone: [facility] [place] Comment on above: Acute bilateral low back pain with bilateral sciatica (Primary Dx); Chronic low back pain without sciatica, unspecified back pain laterality; Compression fracture of L1 vertebra with routine healing, subsequent encounter Start: 06-24-2023 Telephone encounter Zeny Cleav er VINYL CUTTER.INFO SPECIALIST Work Phone: [facility] [place] Comment on above: Patient Question; Ap pointment Start: 06-23-2023 Refill Zeny Genaro VINYL CUTTER.INFO SPECIALIST Work Phone: [facility] [place] Comment on above: Patient Update; Refi ll Request Start: 06-19-2023 Telephone encounter Zeny Cleav er VINYL CUTTER.INFO SPECIALIST Work Phone: [facility] [place] Comment on above: Anticoagulation Medication Question Start: 06-15-2023 End: 06-15-2023 Patient encounter procedure Sunny Mercedes MD Work Phone: Cardiology Comment on above: Screening for ischem ic heart disease (Primary Dx); Primary hypertension; Mixed hyperlipidemia; History of left-sided carotid endarterectomy; Recurrent pulmonary embolism ([facility]); PAD (peripheral artery disease) ([facility]); Bilateral carotid artery stenosis Refill Request (ques tion ) Start: 06-15-2023 Refill Zeny Genaro VINYL CUTTER.[facility] Work Phone: [facility] [place] Comment on above: Refill Request Start: 06-12-2023 Telephone encounter Zeny Cleav er VINYL CUTTER.[facility] Work Phone: [facility] [place] Comment on above: back pain update Anticoagulation Start: 06-09-2023 ambulatory Zeny Genaro VINYL CUTTER.INFO SPECIALIST Work Phone: [facility] [place] Comment on above: Back Brace Start: 06-08-2023 Refill Zeny Genaro VINYL CUTTER.INFO SPECIALIST Work Phone: [facility] [place] Comment on above: Refill Request Start: 06-05-2023 Telephone encounter Zeny Cleav er VINYL CUTTER.INFO SPECIALIST Work Phone: [facility] [place] Comment on above: Anticoagulation Start: 06-04-2023 ambulatory Zeny Genaro VINYL CUTTER.INFO SPECIALIST Work Phone: [facility] [place] Comment on above: Disability parking p ass Start: 06-03-2023 End: 06-03-2023 Patient encounter procedure Mckinley Leal MD Work Phone: Pain Management Comment on above: Compression fracture of L1 vertebra, initial encounter ([facility]) (Primary Dx) Start: 06-03-2023 Telephone encounter Mckinley mullen MD Work Phone: Pain Management Comment on above: Orders (Back brace) Patient Update Start: 06-02-2023 ambulatory Zeny Genaro VINYL CUTTER.INFO SPECIALIST Work Phone: [facility] [place] Comment on above: Dr. 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); PAD (peripheral artery disease) (HCC) Start: 05-23-2023 ambulatory Rosalia torre LPN NURSE SPRAY DRY OPERATOR Comment on above: Question MRI WO Contrast Start: 05-21-2023 Refill Zeny Genaro VINYL CUTTER.INFO SPECIALIST Work Phone: [facility] [place] Comment on above: Refill Request Start: 05-19-2023 Telephone encounter Zeny Cleav er VINYL CUTTER.INFO SPECIALIST Work Phone: [facility] [place] Comment on above: Patient Question Anticoagulation Start: 05-18-2023 End: 05-18-2023 Patient encounter procedure Zeny Genaro VINYL CUTTER.INFO SPECIALIST Work Phone: [facility] [place] Comment on above: Acute bilateral low back pain without sciatica (Primary Dx); Lumbar pain; Fall, subsequent encounter; Recurrent pulmonary embolism (HCC) Start: 05-15-2023 Telephone encounter Zeny Cleav er VINYL CUTTER.INFO SPECIALIST Work Phone: [facility] Comment on above: medication issue Start: 05-14-2023 ambulatory Zeny Genaro VINYL CUTTER.INFO SPECIALIST Work Phone: [facility] [place] Comment on above: Fall Start: 05-14-2023 End: 05-14-2023 Emergency department patient visit Lisandro Mora Facility:[facility] Start: 05-13-2023 Refill Zeny Genaro VINYL CUTTER.INFO SPECIALIST Work Phone: [facility] [place] Comment on above: Refill Request Start: 05-07-2023 ambulatory Zeny Genaro VINYL CUTTER.INFO SPECIALIST Work Phone: [facility] [place] Comment on above: Lorazapam renewal. Start: 05-06-2023 Refill Zeny Genaro VINYL CUTTER.INFO SPECIALIST Work Phone: [facility] [place] Comment on above: Refill Request Start: 03-24-2023 ambulatory Zeny Genaro VINYL CUTTER.INFO SPECIALIST Work Phone: [facility] [place] Comment on above: Low BP Start: 03-20-2023 Telephone encounter Zeny Cleav er VINYL CUTTER.INFO SPECIALIST Work Phone: [facility] [place] Comment on above: Patient Question Start: 03-18-2023 Telephone encounter Mani zurita MD Work Phone: [facility] Comment on above: Anticoagulation Start: 03-10-2023 Telephone encounter Zeny Cleav er VINYL CUTTER.INFO SPECIALIST Work Phone: [facility] Comment on above: Medication Problem Start: 03-04-2023 Telephone encounter Zeny Cleav er VINYL CUTTER.INFO SPECIALIST Work Phone: [facility] [place] Comment on above: Anticoagulation Start: 03-02-2023 Telephone encounter Zeny Cleav er VINYL CUTTER.INFO SPECIALIST Work Phone: [facility] [place] Comment on above: Orders Start: 02-27-2023 Telephone encounter Zeny Cleav er VINYL CUTTER.INFO SPECIALIST Work Phone: [facility] [place] Comment on above: Results Start: 02-24-2023 End: 02-09-2024 Telephone encounter Micah Rosenberg MD Work Phone: General Surgery Comment on above: 04/20/2022 EGD ASC Start: 02-23-2023 Telephone encounter Zeny Cleav er VINYL CUTTER.INFO SPECIALIST Work Phone: [facility] [place] Comment on above: Patient Question Start: 02-18-2023 Telephone encounter Mani zurita MD Work Phone: [facility] [place] Comment on above: Anticoagulation Start: 02-10-2023 Telephone encounter Zeny Cleav er VINYL CUTTER.INFO SPECIALIST Work Phone: [facility] [place] Comment on above: Patient Question Start: 02-08-2023 Refill Zeny Elizabethr VINYL CUTTER.INFO SPECIALIST Work Phone: [facility] [place] Comment on above: Refill Request Don't refill my pres cription for Pantoprazole Start: 02-04-2023 Telephone encounter Zeny Cleav er VINYL CUTTER.INFO SPECIALIST Work Phone: [facility] Comment on above: Anticoagulation Start: 01-29-2023 Refill Sara Older VINYL CUTTER .INFO SPECIALIST Work Phone: [facility] [place] Comment on above: Refill Request Start: 01-23-2023 End: 01-23-2023 Patient encounter procedure Zeny Elizabethr VINYL CUTTER.INFO SPECIALIST Work Phone: [facility] [place] Comment on above: Mixed hyperlipidemia (Primary Dx); Recurrent pulmonary embolism (HCC); FCI (current) use of anticoagulants; Acute gastritis without hemorrhage, unspecified gastritis type; History of left-sided carotid endarterectomy; Spinal stenosis of lumbar region, unspecified whether neurogenic claudication present; Primary hypertension Start: 01-22-2023 Telephone encounter Franc khan MD Work Phone: [facility] [place] Comment on above: Anticoagulation Start: 01-19-2023 End: 01-19-2023 Patient encounter procedure Mckinley Leal MD Work Phone: Pain Management Comment on above: Spinal stenosis of l umbar region, unspecified whether neurogenic claudication present (Primary Dx); Lumbar spondylosis Start: 01-16-2023 Refill Franc grissom MD Work Phone: [facility] [place] Comment on above: Medication Question Start: 01-14-2023 ambulatory Zeny Genaro VINYL CUTTER.INFO SPECIALIST Work Phone: [facility] [place] Comment on above: My Chart Start: 01-14-2023 Telephone encounter Zeny Cleav er VINYL CUTTER.INFO SPECIALIST Work Phone: [facility] [place] Comment on above: Anticoagulation Start: 01-12-2023 ambulatory Edgar Worthy Work Phone: Vascular Surgery Comment on above: Rouvastatine dosage Start: 01-09-2023 Telephone encounter Franc khan MD Work Phone: [facility] [place] Comment on above: Anticoagulation Start: 01-07-2023 Telephone encounter Franc khan MD Work Phone: [facility] [place] Comment on above: Anticoagulation Start: 12-30-2022 Telephone encounter Zeny grove VINYL CUTTER.INFO SPECIALIST Work Phone: [facility] [place] Comment on above: Future Appointment Start: 12-29-2022 End: 12-29-2022 Patient encounter procedure Zeny Lam VINYL CUTTER.INFO SPECIALIST Work Phone: [facility] [place] Comment on above: Gastroesophageal ref lux disease without esophagitis (Primary Dx); Acute gastritis without hemorrhage, unspecified gastritis type Start: 12-29-2022 ambulatory Tammie Rg RN NURS E SPRAY DRY OPERATOR Comment on above: Information Start: 12-25-2022 Telephone encounter Franc khan MD Work Phone: [facility] [place] Comment on above: Patient Question Start: 12-17-2022 ambulatory Mckinley Leal MD Work Phone: Pain Management Comment on above: New Covid Vaccine Start: 12-17-2022 Telephone encounter Franc khan MD Work Phone: [facility] [place] Comment on above: Patient Question Start: 12-14-2022 [...] of right eye Start: 12-08-2022 Refill Sarashannon AhujaINFO SPECIALIST Work Phone: [facility] [place] Comment on above: Refill Request Start: 12-04-2022 Telephone encounter Franc khan MD Work Phone: [facility] [place] Comment on above: Patient Question Start: 12-03-2022 Telephone encounter Mckinley mullen MD Work Phone: Pain Management Comment on above: Patient Update (Anti coagulation hold for 11/26/22) Anticoagulation Start: 12-02-2022 Telephone encounter Franc khan MD Work Phone: [facility] [place] Comment on above: Patient Update Start: 12-01-2022 Telephone encounter Franc khan MD Work Phone: [facility] [place] Start: 11-24-2022 End: 11-24-2022 Patient encounter procedure Franc Hills MD Work Phone: [facility] [place] Comment on above: Chronic low back sharon n without sciatica, unspecified back pain laterality (Primary Dx); Primary hypertension; Kidney insufficiency; Impaired fasting glucose Start: 11-18-2022 ambulatory Mckinley Leal MD Work Phone: Pain Management Comment on above: Past procedure and C PTs PATIENT PROCEDURE IN STRUCTIONS for 12/23/22 Start: 11-18-2022 E-mail encounter fro m caregiver Mckinley Leal MD Work Phone: [facility] Start: 11-12-2022 Telephone encounter Mckinley mullen MD Work Phone: Pain Management Comment on above: Appointment Start: 11-11-2022 Telephone encounter Franc khan MD Work Phone: [facility] [place] Comment on above: Patient Update Orders Anticoagulation Start: 11-10-2022 End: 11-10-2022 Patient encounter procedure Salas Johns MD Work Phone: [facility] Comment on above: Chronic low back sharon n without sciatica, unspecified back pain laterality; Spinal stenosis of lumbar region, unspecified whether neurogenic claudication present Start: 11-07-2022 Telephone encounter Franc khan MD Work Phone: [facility] [place] Comment on above: Medication Update Re quest Start: 11-04-2022 Telephone encounter Franc khan MD Work Phone: [facility] [place] Comment on above: standing lab order f [...] Franc khan MD Work Phone: [facility] [place] Comment on above: Anticoagulation Start: 09-26-2022 Chart [...] Franc khan MD Work Phone: [facility] [place] Comment on above: Anticoagulation Start: 09-09-2022 Refill Franc grissom MD Work Phone: [facility] [place] Comment on above: Refill Request Start: 09-03-2022 Telephone encounter Franc khan MD Work Phone: [facility] [place] Comment on above: Anticoagulation Start: 08-11-2022 End: [...] patient Mj Dos Santos MD Work Phone: [facility] Start: 08-06-2022 Telephone encounter Franc khan MD Work Phone: [facility] [place] Comment on above: Anticoagulation Start: 07-30-2022 Telephone encounter Franc khan MD Work Phone: [facility] [place] Comment on above: Anticoagulation Start: 07-28-2022 Telephone encounter Franc khan MD Work Phone: [facility] [place] Comment on above: Patient Question Start: 07-16-2022 Telephone encounter Franc khan MD Work Phone: [facility] [place] Comment on above: Anticoagulation Start: 07-09-2022 Telephone [...] Franc khan MD Work Phone: [facility] [place] Comment on above: Patient Update Start: 06-03-2022 Telephone encounter Franc khan MD Work Phone: [facility] [place] Comment on above: Anticoagulation Start: 06-02-2022 End: 06-02-2022 Patient encounter procedure Franc Hills MD Work Phone: [facility] [place] Start: 06-02-2022 End: 06-02-2022 Refill Franc Hills MD Work Phone: [facility] [place] Comment on above: Refill Request [facility] subsequent (Primary Dx); PAD (peripheral artery disease) (HCC); Chronic low back pain without sciatica, unspecified back pain laterality; Primary hypertension; Mixed hyperlipidemia; Recurrent pulmonary embolism (HCC); Impaired fasting glucose Start: 05-31-2022 Refill Sara Baxter APRN, .CNP Work Phone: [facility] [place] Comment on above: Refill Request Start: 05-26-2022 Telephone encounter Mj waddell MD Work Phone: Vascular Medicine Comment on above: Phone call to imeldabull tolentino (Re: Scheduling ECHO) Start: 05-22-2022 Telephone encounter Franc khan MD Work Phone: [facility] [place] Comment on above: Anticoagulation Start: 05-21-2022 Telephone encounter Franc khan MD Work Phone: [facility] [place] Comment on above: Lab Orders Orders Start: [...] Franc khan MD Work Phone: [facility] [place] Comment on above: Coumadin instruction request Start: 04-16-2022 Telephone encounter Franc khan MD Work Phone: [facility] [place] Comment on above: Anticoagulation Start: 04-11-2022 Telephone encounter Franc khan MD Work Phone: [facility] [place] Comment on above: Anticoagulation Start: 04-11-2022 End: 04-11-2022 [facility] [place] Comment on above: 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 Start: 04-06-2022 ambulatory Franc grissom MD Work Phone: [facility] [place] Comment on above: My Potassium prescri ption Start: 04-04-2022 Refill Franc grissom MD Work Phone: [facility] [place] Comment on above: Refill Request Start: 04-01-2022 Telephone encounter Franc khan MD Work Phone: [facility] [place] Comment on above: Anticoagulation (/) Start: 03-24-2022 End: 03-24-2022 Admission to same day surgery center [facility] Start: 03-24-2022 End: 03-24-2022 ambulatory [facility] Work Phone: Start: 03-20-2022 Telephone encounter Franc khan MD Work Phone: [facility] [place] Comment on above: Patient Update Start: 03-18-2022 Telephone encounter Franc khan MD Work Phone: [facility] [place] Comment on above: Back Pain Start: 03-17-2022 MC Patient Msg [facility] Provider [facility] [place] Comment on above: Refill request Start: 03-13-2022 Telephone encounter Franc khan MD Work Phone: [facility] [place] Comment on above: Results Start: 03-11-2022 Refill Franc grissom MD Work Phone: [facility] [place] Comment on above: Refill Request; Imelda ent Update Start: 03-06-2022 End: 03-06-2022 [facility] [place] Comment on above: 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); Recurrent pulmonary embolism (HCC) Start: 02-18-2022 Telephone encounter Franc khan MD Work Phone: Coumadin [facility] [place] Comment on above: Orders (protime) Start: 02-18-2022 End: 02-18-2022 Anticoagulant drug monitoring [facility] Work Phone: Coumadin [facility] [place] Comment on above: FCI (current) use of anticoagulants (Primary Dx); Recurrent pulmonary embolism (HCC) Start: 02-11-2022 Telephone encounter Franc khan MD Work Phone: [facility] [place] Comment on above: Patient Update Start: 02-03-2022 Telephone encounter Mani zurita MD Work Phone: [facility] [place] Comment on above: Medication Problem Start: 02-03-2022 End: 02-03-2022 Patient encounter procedure Bonnie Sharif APRN.SMALL ARMS REPAIRER Work Phone: [facility] [place] Comment on above: Primary hypertension (Primary Dx); 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; Recurrent pulmonary embolism (HCC); Chronic low back pain without sciatica, unspecified back pain laterality Start: 02-01-2022 ambulatory Franc grissom MD Work Phone: [facility] [place] Comment on above: Question regarding P ROTHROMBIN TIME/PT(INR INCL.) Start: 01-31-2022 Telephone encounter Franc khan MD Work Phone: [facility] [place] Comment on above: Anticoagulation Start: 01-24-2022 Telephone encounter Franc khan MD Work Phone: [facility] [place] Comment on above: Anticoagulation Start: 01-22-2022 Telephone encounter Franc khan MD Work Phone: [facility] [place] Comment on above: FYI-No Action Needed Start: 01-15-2022 Telephone encounter Franc khan MD Work Phone: [facility] [place] Comment on above: Patient Question Start: 01-13-2022 Telephone encounter Franc khan MD Work Phone: [facility] [place] Comment on above: Patient Question; Pa tient Update Start: 01-08-2022 Telephone encounter Franc khan MD Work Phone: [facility] [place] Comment on above: Anticoagulation (P t requesting INR results/instructions to be left on his VM) Start: 01-06-2022 Telephone encounter Franc khan MD Work Phone: [facility] [place] Comment on above: Patient Question Start: 01-03-2022 Telephone encounter Franc khan MD Work Phone: [facility] [place] Comment on above: Patient Update Start: 12-31-2021 [...] patient Iglesia Ansari MD Work Phone: [facility] Start: 12-18-2021 Telephone encounter Iglesia Mcdonald se, MD Work Phone: Vascular Surg Dept Comment on above: Results Start: 12-17-2021 Refill Sara AhujaINFO SPECIALIST Work Phone: [facility] Medicine [place] Comment on above: Refill Request Start: 12-12-2021 Telephone encounter Kvng Magaña MD Work Phone: Ophthalmology Comment on above: Patient Question Start: 12-11-2021 Telephone encounter Franc khan MD Work Phone: [facility] [place] Comment on above: Patient Request Anticoagulation Start: 12-10-2021 End: 12-10-2021 Patient encounter procedure Kvng Magaña MD Work Phone: Ophthalmology Comment on above: Macular hole of left eye (Primary Dx) Start: 11-27-2021 Refill Franc grissom MD Work Phone: [facility] [place] Comment on above: Refill Request Anticoagulation Start: 11-24-2021 Refill Franc grissom MD Work Phone: [facility] [place] Comment on above: Refill Request Start: 11-14-2021 Telephone encounter Franc khan MD Work Phone: [facility] [place] Comment on above: Anticoagulation Start: 11-13-2021 End: 11-13-2021 Office outpatient visit 25 minutes Franc Hills MD Work Phone: [facility] [place] Comment on above: Primary hypertension (Primary Dx); 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; Mixed hyperlipidemia; Screening for prostate cancer; Chronic low back pain without sciatica, unspecified back pain laterality Start: 11-12-2021 End: 11-12-2021 Patient encounter procedure Micah Rosenberg MD Work Phone: General Surgery Comment on above: Personal history of colonic polyps (Primary Dx) Start: 11-01-2021 Telephone encounter Franc khan MD Work Phone: [facility] [place] Comment on above: Anticoagulation Start: 10-25-2021 Telephone [...] Franc khan MD Work Phone: [facility] [place] Comment on above: Anticoagulation Start: 10-03-2021 Telephone encounter Franc khan MD Work Phone: [facility] [place] Comment on above: Anticoagulation Start: 10-01-2021 Refill Sara Baxter VINYL CUTTER .INFO SPECIALIST Work Phone: [facility] [place] Comment on above: Refill Request Start: 09-28-2021 ambulatory Franc grissom MD Work Phone: [facility] Start: 09-28-2021 End: 09-28-2021 [facility] Start: 09-23-2021 Telephone encounter Frnac khan MD Work Phone: [facility] [place] Comment on above: Insurance Authorizat ion Start: 09-23-2021 End: 09-23-2021 Patient encounter procedure Teri Gruber VINYL CUTTER.INFO SPECIALIST Work Phone: [facility] [place] Comment on above: Pain in gums (Primar y Dx); Periodontal disease; Chronic low back pain without sciatica, unspecified back pain laterality Start: 09-20-2021 Refill Franc grissom MD Work Phone: [facility] [place] Comment on above: Refill Request Start: 09-18-2021 Telephone encounter Franc khan MD Work Phone: [facility] [place] Comment on above: Anticoagulation Start: 09-04-2021 Telephone encounter Franc khan MD Work Phone: [facility] [place] Comment on above: Medication Question Anticoagulation Start: 08-23-2021 Telephone encounter Franc khan MD Work Phone: [facility] [place] Comment on above: Patient Update Start: 08-22-2021 End: 08-22-2021 Patient encounter procedure Franc Hills MD Work Phone: [facility] [place] Comment on above: Eustachian tube dysf unction, right (Primary Dx); Primary hypertension; Recurrent pulmonary embolism (HCC) Start: 08-22-2021 Telephone encounter Franc khan MD Work Phone: [facility] [place] Comment on above: Anticoagulation Start: 08-20-2021 Telephone encounter Franc khan MD Work Phone: [facility] [place] Comment on above: Results, Lab (Home C ovid Test) Start: 08-16-2021 End: 08-16-2021 Patient encounter procedure Mj Dos Santos MD Work Phone: Cardiology Comment on above: Recurrent pulmonary embolism (HCC) (Primary Dx); History of left-sided carotid endarterectomy; Mixed hyperlipidemia; Primary hypertension; PAD (peripheral artery disease) (HCC) Start: 08-14-2021 Telephone encounter Franc khan MD Work Phone: [facility] [place] Comment on above: Patient Question Start: 08-07-2021 Telephone encounter Franc khan MD Work Phone: [facility] [place] Comment on above: Anticoagulation Refill Request Start: 07-24-2021 Telephone encounter Franc khan MD Work Phone: [facility] [place] Comment on above: Anticoagulation Start: 07-11-2021 Telephone encounter Sara Baxter APRN.CNP Work Phone: [facility] [place] Comment on above: Ear Problem Start: 07-10-2021 Telephone encounter Franc khan MD Work Phone: [facility] [place] Comment on above: Anticoagulation Start: 07-03-2021 End: 07-03-2021 Patient encounter procedure Sara Baxter APRN.INFO SPECIALIST Work Phone: [facility] [place] Comment on above: Suppurative otitis m edia of right ear, unspecified chronicity (Primary Dx) Start: 06-27-2021 Telephone encounter Franc khan MD Work Phone: [facility] [place] Comment on above: Anticoagulation Start: 01-13-2020 End: 01-13-2020 Subsequent hospital visit by physician [facility] [place] Work Phone: Radiology Comment on above: Wrist injuries, righ t, initial encounter [S69.91XA] Procedures Date Procedure Procedure Detail Performing Clinician Start: 11-20-[address] Danielle Han DO Work Phone: Start: 08-11-2024 Computerized ophthalmic imaging retina Kvng Magaña MD Work Phone: Start: 08-04-2024 Nitric oxide gas determination Zeny Lam APRN.INFO SPECIALIST Work Phone: Start: 08-04-2024 Brncdilat rspse spmtry pre&post-brncdilat admn Zeny Lam APRN.CNP Work Phone: Start: 07-18-2024 Myocardial spect multiple studies Teri Gruber APRN.INFO SPECIALIST Work Phone: Start: 03-10-2024 Prothrombin time Ccf Provider Start: 02-29-2024 Ct head/brain w/o contrast material Zeny Lam APRN.CNP Work Phone: Start: 01-06-2024 Adult depression screening assessment Zeny Lam APRN.INFO SPECIALIST Work Phone: Start: 12-28-2023 Prothrombin time Zeny Lam APRN.CNP Work Phone: Start: 11-16-2023 Urnls dip stick/tablet rgnt auto w/o microscopy Micah Portillo APRN.INFO SPECIALIST, DNP Work Phone: Start: 11-10-2023 Prothrombin time Ccf Provider Start: 10-05-2023 Prothrombin time Ccf Provider Start: 09-04-2023 Prothrombin time Ccf Provider Start: 08-25-2023 Radiologic exam chest 2 views Zeny Lam APRN.INFO SPECIALIST Work Phone: Start: 08-24-2023 Prothrombin time Ccf Provider Start: 07-30-2023 Prothrombin time Ccf Provider Start: 07-15-2023 Prothrombin time Ccf Provider Start: 06-30-2023 Prothrombin time Ccf Provider Start: 06-19-2023 PROTHROMBIN TIME/PT Ccf Provider Start: 06-05-2023 PROTHROMBIN TIME/PT Ccf Provider Start: 05-29-2023 Mri spinal canal lumbar w/o contrast material Zeny Lam APRN.INFO SPECIALIST Work Phone: Start: 05-26-2023 PROTHROMBIN TIME/PT Ccf [...] Phone: Start: 11-13-2021 Adult depression screening assessment Fracn Hills MD Work Phone: Start: 09-28-2021 CT of head without contrast Start: 09-04-2021 PROTHROMBIN TIME/PT Franc Hills MD Work Phone: Start: 08-07-2021 PROTHROMBIN TIME/PT Ccf Provider Start: 07-10-2021 PROTHROMBIN TIME/PT Ccf Provider Start: 07-09-2020 Adult depression screening assessment Franc Hills MD Work Phone: Start: 01-13-2020 Radex wrist complete minimum 3 views Kvng Freire APRN.INFO SPECIALIST Work Phone: Start: 06-10-2019 History of carotid endarterectomy History of left-sided carotid endarterectomy Franc Hills MD Work Phone: History of carotid endarterectomy History of left-sided carotid endarterectomy Mj Dos Santos MD Work Phone: History of carotid endarterectomy History of left-sided carotid endarterectomy Mj Dos Santos MD Work Phone: History of carotid endarterectomy History of left-sided carotid endarterectomy Zeny Lam APRN.INFO SPECIALIST Work Phone: History of carotid endarterectomy History of left-sided carotid endarterectomy Sunny Mercedes MD Work Phone: History of carotid endarterectomy History of left-sided carotid endarterectomy Sunny Mercedes MD Work Phone: Plan of Treatment Date Care Activity Detail Author Start: 01-10-2031 Urine microalbumin profile [facility] Start: 11-10-2027 Diabetes Screening Diabetes Screening [facility] Start: 10-22-2027 Urine microalbumin profile DTAP,TDAP,TD (2 - Td or Tdap) [facility] Start: 08-11-2027 Diabetes Screening Diabetes Screening [facility] Start: 02-08-2027 Diabetes Screening Diabetes Screening [facility] Start: 12-13-2026 Diabetes Screening Diabetes Screening [facility] Start: 09-07-2026 Diabetes Screening Diabetes Screening [facility] Start: 07-14-2026 Diabetes Screening Diabetes Screening [facility] Start: 06-04-2026 Diabetes Screening Diabetes Screening [facility] Start: 02-25-2026 Diabetes Screening Diabetes Screening [facility] Start: 01-14-2026 Diabetes Screening Diabetes Screening [facility] Start: 08-18-2025 DIABETES SCREEN DIABETES SCREEN [facility] Start: 08-18-2025 Diabetes Screening Diabetes Screening [facility] Start: 08-15-2025 Annual PCP Team Chronic Disease Visit Annual PCP Team Chronic Disease Visit [facility] Start: 08-15-2025 BP Controlled (<130/80) BP Controlled (<130/80) [facility] Start: 07-30-2025 DIABETES SCREEN DIABETES SCREEN [facility] Start: 07-25-2025 Annual PCP Team Chronic Disease Visit Annual PCP Team Chronic Disease Visit [facility] Start: 07-25-2025 BP Controlled (<130/80) BP Controlled (<130/80) [facility] Start: 07-25-2025 End: 07-25-2025 Patient encounter procedure 07/25/2025 10:45 AM EDT Office Visit OPHT Ophthalmology [address] [facility] [address] [address] Kvng Magaña MD [address] [facility] [address] [place] [id number] Diagnostics, [facility] [address] [facility] [address], [place] [address] Return in one year Ophthalmology Comment on above: Return in one year Start: 06-12-2025 End: 06-12-2025 Patient encounter procedure 06/12/2025 1:20 PM EDT Office Visit Cardiology [address] [place] [address] Sunny Mercedes MD [address] [id number] 9 month follow up Cardiology Comment on above: 9 month follow up Start: 06-08-2025 Annual PCP Team Chronic Disease Visit Annual PCP Team Chronic Disease Visit [facility] Start: 06-08-2025 BP Controlled (<130/80) BP Controlled (<130/80) [facility] Start: 05-26-2025 DIABETES SCREEN DIABETES SCREEN [facility] Start: 05-24-2025 BP Controlled (<130/80) BP Controlled (<130/80) [facility] Start: 05-17-2025 Annual PCP Team Chronic Disease Visit Annual PCP Team Chronic Disease Visit [facility] Start: 05-17-2025 BP Controlled (<130/80) BP Controlled (<130/80) [facility] Start: 02-14-2025 Annual PCP Team Chronic Disease Visit Annual PCP Team Chronic Disease Visit [facility] Start: 01-19-2025 Annual PCP Team Chronic Disease Visit Annual PCP Team Chronic Disease Visit [facility] Start: 01-17-2025 End: 01-17-2025 Patient encounter procedure 01/17/2025 11:40 AM EDT Office Visit Family Medicine [place] [address] [place] [address] Teri Gruber APRN.INFO SPECIALIST [address] [place] [address] 2 month follow-up, Patient wanting to establish with Adolfo, wants to talk to BREAKDOWN MILL OPERATOR first Family Medicine [place] Comment on above: 2 month follow-up, Patient wanting to es tablish with Adolfo, wants to talk to BREAKDOWN MILL OPERATOR first Start: 01-05-2025 Annual PCP Team Chronic Disease Visit Annual PCP Team Chronic Disease Visit [facility] Start: 01-05-2025 Anxiety Screening Anxiety Screening [facility] Start: 01-05-2025 BP Controlled (<130/80) BP Controlled (<130/80) [facility] Start: 01-05-2025 Depression Screening Depression Screening [facility] Start: 12-23-2024 End: 12-23-2024 Patient encounter procedure 12/23/2024 2:15 PM EDT Appointment Radiology [address] [place] [id number] Screening for osteoporosis [Z13.820 Radiology Comment on above: Screening for osteoporosis [Z13.820 Start: 12-16-2024 End: 12-16-2024 Patient encounter procedure 12/16/2024 1:30 PM EDT Office Visit Pulmonary Medicine [address] [place] [address] Shruti Carrington APRN.INFO SPECIALIST [address] [place] [address] 8 wk f/u Pulmonary Medicine Comment on above: 8 wk f/u Start: 12-16-2024 End: 12-16-2024 ambulatory 12/16/2024 1:15 PM EDT Procedure PULM LAB [facility] [address] [place] [address] Wstr, Pulm Lab [facility] [address] [place] [address] Mild persistent asthma without complication (HCC) [J45.30] PULM LAB [facility] WS Comment on above: Mild persistent asthma without complicat ion (HCC) [J45.30] Start: 12-13-2024 Annual PCP Team Chronic Disease Visit Annual PCP Team Chronic Disease Visit [facility] Start: 12-06-2024 End: 12-06-2024 Patient encounter procedure Vasculary Guzmán rgery Comment on above: (peripheral artery disease) (HCC) [I73.9 ] 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 Urology Comment on above: 1 YR F/U BPH. Start: 11-23-2024 End: 11-23-2024 ambulatory 11/23/2024 11:15 AM EDT Results Only Alena Fernandezwn [facility] Laboratory [address] [place] [address] PT/INR [place] [facility] Comment on above: PT/INR Start: 11-20-2024 Esophagogastroduodenoscopy EGD (Not Applicable) [facility] Start: 11-20-2024 Admission procedure [facility] Start: 11-15-2024 BP Controlled (<130/80) BP Controlled (<130/80) [facility] Start: 11-15-2024 End: 11-15-2024 Patient encounter procedure 11/15/2024 1:20 PM EDT Office Visit Internal Medicine [place] [address] [place] [address] Zeny Lam APRN.INFO SPECIALIST [address] [place] [address] 3 month follow up Internal Medicine Al[place] Comment on above: 3 month follow up Start: 11-09-2024 End: 11-09-2024 ambulatory 11/09/2024 11:30 AM EDT Results Only Alena Fernandezwn [facility] Laboratory [address] [place] [address] PT/INR--PROTHROMBIN TIME [PT] [facility] Laboratory Comment on above: PT/INR--PROTHROMBIN TIME [PT] Start: 11-04-2024 End: 11-04-2024 Patient encounter procedure 11/04/2024 2:15 PM EDT Appointment Radiology [address] [place] [phone] Screening for osteoporosis [Z13.820 Radiology Comment on above: Screening for osteoporosis [Z13.820 Start: 11-01-2024 DIABETES SCREEN DIABETES SCREEN [facility] Start: 10-28-2024 End: 10-28-2024 [facility] Comment on above: PT/INR Start: 10-20-2024 End: 01-19-2025 ALGN [facility] Comment on above: Expected: 10/20/2024, Expires: Start: 10-20-2024 End: 01-19-2025 IgE [Units/volume] in Serum or Plasma [facility] Comment on above: Expected: 10/20/2024, Expires: Start: 10-20-2024 End: 11-19-2025 XR Chest PA and Lateral [facility] Work Phone: Comment on above: Expected: 10/20/2024, Expires: Start: 10-20-2024 End: 10-20-2024 Patient encounter procedure 10/20/2024 1:30 PM EDT Office Visit Pulmonary Medicine [address] [place] [address] Mirlande Funez MD [address] [place] [address] Shortness of breath [R06.02] Pulmonary Medicine Comment on above: Shortness of breath [R06.02] Start: 10-14-2024 End: 10-14-2024 ambulatory 10/14/2024 11:15 AM EDT Results Only [place] [facility] Laboratory [address] [place] [address] PT/INR [place] [facility] Laboratory Comment on above: PT/INR Start: 10-11-2024 End: 10-11-2024 Patient encounter procedure 10/11/2024 1:00 PM EDT Office Visit Podiatry [address] [place] [address] Gayle Green [address] [place] [address] 10 week follow up nail care Podiatry Comment on above: 10 week follow up nail care Start: 10-05-2024 End: 10-05-2024 ambulatory 10/05/2024 11:00 AM EDT Results Only [place] [facility] [address] [place] [address] INR [place] [facility] Laboratory Comment on above: INR Start: 10-04-2024 End: 10-04-2024 Patient encounter procedure 10/04/2024 2:00 PM EDT Office Visit Integrative Medicine [address] [place] [address] Walt Yang R Ac [address] [place] [address] ACUPUNCTURE Integrative Medicine Comment on above: ACUPUNCTURE Start: 09-21-2024 End: 09-21-2024 ambulatory 09/21/2024 11:30 AM EDT Results Only Alena Fernandezwn [facility] Laboratory [address] [place] [address] lab-INR [facility] Laboratory Comment on above: lab-INR Start: 09-20-2024 End: 09-20-2024 Patient encounter procedure 09/20/2024 2:00 PM EDT Office Visit Integrative Medicine [address] [place] [address] Walt Yang R Ac [address] [place] [address] ACUPUNCTURE Integrative Medicine Comment on above: ACUPUNCTURE Start: 09-19-2024 End: 12-19-2024 CBC W Auto Differential panel - Blood COMPLETE BLOOD COUNT AND DIFFERENTIAL Lab Routine Encounter for therapeutic drug monitoring Expected: 09/19/2024, Expires: 12/19/2024 [facility] Work Phone: Comment on above: Expected: 09/19/2024, Expires: Start: 09-19-2024 End: 12-19-2024 Comprehensive metabolic 2000 panel - Serum or Plasma COMPREHENSIVE METABOLIC PANEL Lab Routine Encounter for therapeutic drug monitoring Expected: 09/19/2024, Expires: 12/19/2024 [facility] Comment on above: Expected: 09/19/2024, Expires: Start: 09-19-2024 End: 12-19-2024 Hemoglobin A1c in Blood HEMOGLOBIN A1C Lab Routine IFG (impaired fasting glucose) Expected: 09/19/2024, Expires: 12/19/2024 [facility] Comment on above: Expected: 09/19/2024, Expires: Start: 09-19-2024 End: 12-19-2024 TOXICOLOGY SCREEN, ROUTINE URINE TOXICOLOGY SCREEN, ROUTINE URINE Lab Routine Encounter for therapeutic drug monitoring Expected: 09/19/2024, Expires: 12/19/2024 [facility] Comment on above: Expected: 09/19/2024, Expires: Start: 09-14-2024 Annual PCP Team Chronic Disease Visit Annual PCP Team Chronic Disease Visit [facility] Start: 09-14-2024 BP Controlled (<130/80) BP Controlled (<130/80) [facility] Start: 09-08-2024 End: 09-08-2024 Patient encounter procedure 09/08/2024 2:00 PM EDT Office Visit Integrative Medicine [address] [place] [address] Walt Yang R Ac [address] [place] [address] ACUPUNCTURE Integrative Medicine Comment on above: ACUPUNCTURE Start: 09-07-2024 End: 09-07-2024 ambulatory 09/07/2024 11:30 AM EDT Results Only Alena Fernandezwn [facility] Laboratory [address] [place] [address] inr [facility] Laboratory Comment on above: inr Start: 08-24-2024 Annual PCP Team Chronic Disease Visit Annual PCP Team Chronic Disease Visit [facility] Start: 08-24-2024 BP Controlled (<130/80) BP Controlled (<130/80) [facility] Start: 08-24-2024 End: 08-24-2024 ambulatory 08/24/2024 11:00 AM EDT Results Only [place] [facility] [address] [place] [address] INR [facility] Laboratory Comment on above: INR Start: 08-23-2024 End: 08-23-2024 Patient encounter procedure 08/23/2024 2:00 PM EDT Office Visit Integrative Medicine [address] [place] [address] Walt Yang R Ac [address] [place] [address] ACUPUNCTURE Integrative Medicine Comment on above: ACUPUNCTURE Start: 08-15-2024 End: 08-15-2024 Patient encounter procedure Internal Med sean [place] Comment on above: Medicare wellness exam Start: 08-11-2024 End: 08-11-2024 Patient encounter procedure Ophthalmolog y Comment on above: Vision changes Start: 08-10-2024 End: 08-10-2024 ambulatory 08/10/2024 11:00 AM EDT Results Only Alena Mike [facility] Laboratory [address] [place] [address] INR [place] [facility] Laboratory Comment on above: INR Start: 08-09-2024 BP Controlled (<130/80) BP Controlled (<130/80) [facility] Start: 08-09-2024 End: 08-09-2024 Patient encounter procedure 08/09/2024 2:00 PM EDT Office Visit Integrative Medicine [address] [place] [address] Walt Yang R [address] [place] [address] ACUPUNCTURE Integrative Medicine Comment on above: ACUPUNCTURE Start: 08-08-2024 End: 11-07-2024 Creatinine and Glomerular filtration rate.predicted panel - Serum, Plasma or Blood CREATININE BLD Lab Routine Shortness of breath Expected: 08/08/2024, Expires: 11/07/2024 [facility] Comment on above: Expected: 08/08/2024, Expires: Start: 08-08-2024 End: 08-08-2024 Patient encounter procedure 08/08/2024 1:00 PM EDT Office Visit Cardiology [address] [place] [address] Sunny Mercedes MD [address] [facility] [address] [place], [place] [id number] 1 yr follow up Cardiology Comment on above: 1 yr follow up Start: 08-04-2024 End: 08-04-2024 ambulatory PULM LAB [facility] Comment on above: Shortness of breath [R06.02] Start: 07-28-2024 End: 07-28-2024 Patient encounter procedure Podiatry Comment on above: 10 week follow up nail care Start: 07-27-2024 End: 07-27-2024 ambulatory 07/27/2024 11:15 AM EDT Results [facility] [address] [place] [address] [facility] Comment on above: INR Start: 07-26-2024 End: 07-26-2024 Patient encounter procedure Integrative Medicine Comment on above: Chronic lower back pain. Sign AFR* Start: 07-26-2024 Annual PCP Team Chronic Disease Visit Annual PCP Team Chronic Disease Visit [facility] Start: 07-26-2024 BP Controlled (<130/80) BP Controlled (<130/80) [facility] Start: 07-25-2024 End: 07-25-2024 Patient encounter procedure 07/25/2024 11:20 AM EDT Office Visit Internal Medicine [place] [address] [place] [address] Zeny Lam APRN.INFO SPECIALIST [address] [place] [address] follow up stress test results Internal Medicine [place] Comment on above: follow up stress test results Start: 07-20-2024 BP Controlled (<130/80) BP Controlled (<130/80) [facility] Start: 07-18-2024 End: 07-18-2024 Nursing evaluation of patient and report 07/18/2024 8:45 AM EDT Nurse Visit Cardiology [address] [place] [address] Wstr, Nurse Card [address] [place] [address] : Shortness of breath [R06.02] Cardiology Comment on above: : Shortness of breath [R06.02] Start: 07-18-2024 End: 07-18-2024 Patient encounter procedure Nuclear Medi cine Comment on above: : Shortness of breath [R06.02] Start: 07-17-2024 Annual PCP Team Chronic Disease Visit Annual PCP Team Chronic Disease Visit [facility] Start: 07-17-2024 BP Controlled (<130/80) BP Controlled (<130/80) [facility] Start: 07-13-2024 End: 07-13-2024 ambulatory 07/13/2024 11:00 AM EDT Results Only Alena Mike [facility] [address] [place] [address] LABS [place] Fernandezwn [facility] Laboratory Comment on above: LABS Start: 07-12-2024 Covid-19 Vaccine ( season) Covid-19 Vaccine ( season) [facility] Start: 06-29-2024 End: 06-29-2024 ambulatory 06/29/2024 11:30 AM EDT Results Only Alena Mike [facility] [address] [place] [address] PT INR [place] [facility] Laboratory Comment on above: PT INR Start: 06-28-2024 Annual PCP Team Chronic Disease Visit Annual PCP Team Chronic Disease Visit [facility] Start: 06-28-2024 BP Controlled (<130/80) BP Controlled (<130/80) [facility] Start: 06-15-2024 End: 06-15-2024 ambulatory 06/15/2024 11:30 AM EDT Results Only Alena Mike [facility] [address] [place] [address] PT/INR Alena [place] [facility] Laboratory Comment on above: PT/INR Start: 06-14-2024 BP Controlled (<130/80) BP Controlled (<130/80) [facility] Start: 06-13-2024 End: 06-13-2024 Patient encounter procedure Cardiology Comment on above: 1 yr follow up Start: 06-08-2024 End: 06-08-2024 Patient encounter procedure 06/08/2024 3:00 PM EST Office Visit Internal Medicine [place] [address] [place] [address] Zeny Lam APRN.INFO SPECIALIST [address] [place] [address] discuss stress test ordered Internal Medicine [place] Comment on above: discuss stress test ordered Start: 06-01-2024 End: 06-01-2024 ambulatory 06/01/2024 11:00 AM EST Results Only Alena Mike [facility] [address] [place] [address] INR [facility] [facility] Laboratory Comment on above: INR Start: 05-26-2024 BP Controlled (<130/80) BP Controlled (<130/80) [facility] Start: 05-24-2024 End: 05-24-2024 Patient encounter procedure Vascular Luis melvina Comment on above: 1 yr follow up CAROTID , SEE DR. NETO HWANG AFTER Start: 05-19-2024 End: 05-19-2024 Patient encounter procedure 05/19/2024 1:30 PM EST Office Visit Podiatry [address] [place] [address] Gayle Green [address] [address] Neuropathy Podiatry Comment on above: Neuropathy Start: 05-18-2024 Annual PCP Team Chronic Disease Visit Annual PCP Team Chronic Disease Visit [facility] Start: 05-18-2024 BP Controlled (<130/80) BP Controlled (<130/80) [facility] Start: 05-18-2024 End: 05-18-2024 ambulatory 05/18/2024 11:30 AM EST Results Only Alena Mike [facility] [address] [place] [address] INR [place] [facility] Laboratory Comment on above: INR Start: 05-17-2024 End: 05-17-2024 Patient encounter procedure 05/17/2024 1:40 PM EST Office Visit Family Medicine [place] [address] [place] [address] Teri Gruber APRN.INFO SPECIALIST [address] [place] [address] 3 month medication follow up Family Medicine [facility] Comment on above: 3 month medication follow up Start: 05-11-2024 End: 05-11-2024 ambulatory 05/11/2024 11:15 AM EST Results Only Alena Mike [facility] [address] [place] [address] INR [place] [facility] Comment on above: INR Start: 05-07-2024 DIABETES SCREEN DIABETES SCREEN [facility] Start: 04-26-2024 End: 07-26-2024 Magnesium [Mass/volume] in Serum or Plasma MAGNESIUM Lab Routine Side effect of medication Expected: 04/26/2024 (Approximate), Expires: 07/26/2024 [facility] Work Phone: Comment on above: Expected: 04/26/2024 (Approximate), Expi res: 07/26/2024 Start: 04-26-2024 End: 04-26-2024 ambulatory [facility] Laboratory Comment on above: Lab Start: 04-08-2024 End: 04-08-2024 ambulatory 04/08/2024 11:30 AM EST Results Only [place] [facility] [address] [place] [address] INR [facility] Comment on above: INR Start: 04-06-2024 Advance Directive Discussion Advance Directive Discussion [facility] Start: 03-24-2024 Annual PCP Team Chronic Disease Visit Annual PCP Team Chronic Disease Visit [facility] Start: 03-24-2024 BP Controlled (<130/80) BP Controlled (<130/80) [facility] Start: 03-24-2024 End: 03-24-2024 ambulatory 03/24/2024 11:15 AM EST Results Only [place] [facility] [address] [place] [place] [address] Labs [facility] Comment on above: Labs Start: 03-10-2024 End: 03-10-2024 ambulatory 03/10/2024 11:15 AM EST Results Only [place] Fernandezwn [facility] [address] [place] [address] Lab [facility] Comment on above: Lab Start: 02-29-2024 End: 02-29-2024 Patient encounter procedure 02/29/2024 11:40 AM EST Appointment Cat Scan [address] [place] [address] Primary hypertension [I10]; Dizziness [R42] Cat [facility] Comment on above: Primary hypertension [I10]; Dizziness [R 42] Start: 02-26-2024 End: 02-26-2024 Patient encounter procedure 02/26/2024 2:00 PM EST Office Visit [facility] Medicine [place] [address] [place] [address] Zeny Lam APRN.INFO SPECIALIST [address] [place] [address] 5 month follow up Internal Medicine [place] Comment on above: 5 month follow up Start: 02-25-2024 BP Controlled (<130/80) BP Controlled (<130/80) [facility] Start: 02-23-2024 End: 02-23-2024 ambulatory 02/23/2024 11:00 AM EST Results Only [place] Fernandezwn [facility] [address] [place] [address] Lab [facility] Comment on above: Lab Start: 02-15-2024 End: 02-15-2024 Patient encounter procedure 02/15/2024 2:20 PM EST Office Visit Internal Medicine [place] [address] [place] [address] eZny Lam APRN.INFO SPECIALIST [address] [place] [address] 5 month follow up [facility] [place] Comment on above: 5 month follow up Start: 02-09-2024 End: 02-09-2024 ambulatory 02/09/2024 11:00 AM EST Results Only [place] [facility] [address] [place] [address] lab [facility] Comment on above: lab Start: 02-04-2024 Covid-19 Vaccine () Covid-19 Vaccine () [facility] Start: 02-04-2024 Covid-19 Vaccine () Covid-19 Vaccine () [facility] Start: 01-26-2024 End: 01-26-2024 ambulatory 01/26/2024 11:00 AM EDT Results Only [place] Mike [facility] [address] [place] [address] Recurrent pulmonary embolism (HCC) [I26.99] [place] Fernandezwn [facility] Comment on above: Recurrent pulmonary embolism (HCC) [I26. 99] Start: 01-24-2024 Annual PCP Team Chronic Disease Visit Annual PCP Team Chronic Disease Visit [facility] Start: 01-24-2024 BP Controlled (<130/80) BP Controlled (<130/80) [facility] Start: 01-15-2024 End: 01-15-2024 Patient encounter procedure 01/15/2024 11:20 AM EDT Office Visit Internal Medicine [place] [address] [place] [address] Zeny Lam APRN.INFO SPECIALIST [address] [facility] [place] [address] [facility] Follow up 01/08/2024 Internal Medicine [place] Comment on above: [facility] Follow up 01/08/2024 Start: 01-14-2024 Annual PCP Team Chronic Disease Visit Annual PCP Team Chronic Disease Visit [facility] Start: 01-14-2024 BP Controlled (<130/80) BP Controlled (<130/80) [facility] Start: 01-12-2024 End: 01-12-2024 ambulatory 01/12/2024 11:30 AM EDT Results Only [place] Mike [facility] [address] [place] [address] Recurrent pulmonary embolism (HCC) [I26.99] [place] Mike [facility] Comment on above: Recurrent pulmonary embolism (HCC) [I26. 99] Start: 01-06-2024 End: 01-06-2024 Patient encounter procedure 01/06/2024 11:20 AM EDT Office Visit Internal Medicine [place] [address] [place] [address] Zeny Lam APRN.INFO SPECIALIST [address] [facility] [place] [address] sleeping 14 hours a day, cold sweats, short of breath, fatigued, changes in bowel habits (reading things signs of heart attack and colon cancer) [facility] [place] Comment on above: sleeping 14 hours a day, cold sweats, sh ort of breath, fatigued, changes in bowel habits (reading things signs of heart attack and colon cancer) Start: 01-05-2024 End: 01-05-2024 ambulatory 01/05/2024 11:00 AM EDT Results Only [place] [facility] [address] [place] [address] Vitamin D deficiency [E55.9]- [facility] LOC [facility] Comment on above: Vitamin D deficiency [E55.9]- [facility] LOC Start: 01-01-2024 End: 01-01-2024 ambulatory 01/01/2024 11:15 AM EDT Results Only [place] [facility] [address] [place] [address] INR [place] [facility] Comment on above: INR Start: 12-30-2023 Annual PCP Team Chronic Disease Visit Annual PCP Team Chronic Disease Visit [facility] Start: 12-30-2023 BP Controlled (<130/80) BP Controlled (<130/80) [facility] Start: 12-28-2023 End: 12-28-2023 ambulatory 12/28/2023 11:15 AM EDT Results Only [place] [facility] [address] [place] [address] INR [place] [facility] Comment on above: INR Start: 12-18-2023 End: 12-18-2023 ambulatory 12/18/2023 11:30 AM EDT Results Only [place] [facility] [address] [place] [address] INR [place] [facility] Comment on above: INR Start: 12-14-2023 End: 12-14-2023 Patient encounter procedure 12/14/2023 1:40 PM EDT Office Visit Internal Medicine [place] [address] [place] [address] Zeny Lam APRN.INFO SPECIALIST [address] [place] [address] Tired; lighheaded x 2 weeks Internal Medicine [place] Comment on above: Tired; lighheaded x 2 weeks Start: 12-08-2023 End: 12-08-2023 ambulatory 12/08/2023 11:30 AM EDT [facility] [address] [place] [address] PT/INR Lab [facility] Comment on above: PT/INR Lab Start: 12-06-2023 Covid-19 Vaccine () Covid-19 Vaccine () [facility] Start: 12-06-2023 Influenza vaccination Influenza Vaccine (#1) [facility] Start: 11-25-2023 ANNUAL PCP TEAM CHRONIC DISEASE VISIT ANNUAL PCP TEAM CHRONIC DISEASE VISIT [facility] Start: 11-24-2023 End: 11-24-2023 ambulatory 11/24/2023 11:00 AM EDT Results Only [place] Fernandezwn [facility] [address] [place] [address] lab [facility] Comment on above: lab Start: 11-16-2023 End: 11-16-2023 Patient encounter procedure 11/16/2023 1:30 PM EDT Office Visit Urology [address] [place] [address] Micah Portillo APRN.INFO SPECIALIST, DNP [address] [place] [address] 3 MONTH FOLLOW UP Urology Comment on above: 3 MONTH FOLLOW UP Start: 11-12-2023 End: 11-12-2023 Patient encounter procedure Integrative Medicine Comment on above: ACUPUNCTURE SIGN AFR* Start: 11-10-2023 End: 11-10-2023 ambulatory 11/10/2023 11:00 AM EDT Results Only [place] Mike [facility] [address] [place] [address] lab [place] Mike [facility] Comment on above: lab Start: 10-30-2023 End: 10-30-2023 ambulatory 10/30/2023 11:30 AM EDT Results Only [place] [facility] Draw Station [address] [place] [address] lab [place] [facility] Station Comment on above: lab Start: 10-29-2023 BP CONTROLLED (<130/80) BP CONTROLLED (<130/80) [facility] Start: 10-24-2023 Covid-19 Vaccine () Covid-19 Vaccine () [facility] Start: 10-20-2023 End: 10-20-2023 ambulatory 10/20/2023 11:15 AM EDT Results Only [place] Mahajann [facility] [address] [place] [address] Recurrent pulmonary embolism (HCC) [I26.99] [place] [facility] Comment on above: Recurrent pulmonary embolism (HCC) [I26. 99] Start: 10-05-2023 End: 10-05-2023 ambulatory 10/05/2023 11:15 AM EDT Results Only [place] Mike [facility] [address] [place] [address] Recurrent pulmonary embolism (HCC) [I26.99] Al[place]ajinder Fernandezwn [facility] Comment on above: Recurrent pulmonary embolism (HCC) [I26. 99] Start: 09-23-2023 End: 09-23-2023 ambulatory 09/23/2023 11:30 AM EDT Results Only [place] Mahajann [facility] [address] [place] [address] PROTHROMBIN TIME/PT [PT] [place]andez[place] [facility] Comment on above: PROTHROMBIN TIME/PT [PT] Start: 09-15-2023 End: 09-15-2023 Patient encounter procedure 09/15/2023 1:20 PM EDT Office Visit Internal Medicine [place] [address] [place] [address] Zeny Lam APRN.INFO SPECIALIST [address] [place] [address] physical and 6 month follow up Internal Medicine [place] Comment on above: physical and 6 month follow up Start: 09-11-2023 End: 09-11-2023 ambulatory 09/11/2023 11:30 AM EDT Results Only [place] [facility] [address] [place] [address] LABS [place] [facility] Comment on above: LABS Start: 09-08-2023 End: 09-08-2023 ambulatory 09/08/2023 11:00 AM EDT Results Only [place] [facility] [address] [place] [address] Encounter for drug monitoring Z51.81 and Vitamin D deficiency E55.9 [place] [facility] Comment on above: Encounter for drug monitoring Z51.81 and Vitamin D deficiency E55.9 Start: 09-07-2023 End: 09-07-2023 Patient encounter procedure 09/07/2023 11:20 AM EDT Office Visit [facility] [address] [address] [place] [address] [place] [address] Last OV 11/10/2022 [facility] Comment on above: Last OV 11/10/2022 Start: 09-04-2023 End: 09-04-2023 ambulatory 09/04/2023 11:30 AM EDT Results Only [place] [facility] [address] [place] [address] Recurrent pulmonary embolism (HCC) [I26.99] [place] [facility] Comment on above: Recurrent pulmonary embolism (HCC) [I26. 99] Start: 08-27-2023 End: 08-27-2023 Patient encounter procedure 08/27/2023 1:30 PM EDT Office Visit Integrative Medicine [address] [place] [address] Irene Moraes MD [address] [place], [place] [id number] NEW CONSULT Integrative Medicine Comment on above: NEW CONSULT Start: 08-25-2023 End: 08-25-2023 Patient encounter procedure 08/25/2023 9:40 AM EDT Office Visit Internal Medicine [place] [address] [place], [place] [id number] Zeny Lam APRN.INFO SPECIALIST [address] [place], [place] [address] follow up Internal Medicine [place] Comment on above: follow up Start: 08-23-2023 ANNUAL PCP TEAM CHRONIC DISEASE VISIT ANNUAL PCP TEAM CHRONIC DISEASE VISIT [facility] Start: 08-23-2023 BP CONTROLLED (<130/80) BP CONTROLLED (<130/80) [facility] Start: 08-21-2023 End: 08-21-2023 ambulatory 08/21/2023 11:15 AM EDT Results Only [facility] [address] [place], [place] [address] Recurrent pulmonary embolism (HCC) [I26.99] [facility] Comment on above: Recurrent pulmonary embolism (HCC) [I26. 99] Start: 08-19-2023 Covid-19 Vaccine () Covid-19 Vaccine () [facility] Start: 08-14-2023 End: 08-14-2023 Patient encounter procedure 08/14/2023 1:50 PM EDT Office Visit Cardiology [address] [place], [place] [id number] Primary hypertension [I10] Cardiology Comment on above: Primary hypertension [I10] Start: 08-14-2023 End: 08-14-2023 ambulatory 08/14/2023 11:15 AM EDT Results Only [place] [facility] [address] [place] [address] PROTHROMBIN TIME/PT [PT] [place] [facility] Draw Station Comment on above: PROTHROMBIN TIME/PT [PT] Start: 08-12-2023 ANNUAL PCP TEAM CHRONIC DISEASE VISIT ANNUAL PCP TEAM CHRONIC DISEASE VISIT [facility] Start: 08-12-2023 BP CONTROLLED (<130/80) BP CONTROLLED (<130/80) [facility] Start: 08-12-2023 End: 08-12-2023 ambulatory 08/12/2023 11:15 AM EDT Results Only [place] Mike [facility] [address] [place] [address] PROTHROMBIN TIME/PT [PT] [place] Fernandezwn [facility] Comment on above: PROTHROMBIN TIME/PT [PT] Start: 08-10-2023 End: 08-10-2023 Patient encounter procedure 08/10/2023 1:00 PM EDT Office Visit Urology [address] [address] Micah Portillo APRN.INFO SPECIALIST, DNP [address] [place] [address] BPH with obstruction/lower urinary tract symptoms [N40.1, N13.8] Urology Comment on above: BPH with obstruction/lower urinary tract symptoms [N40.1, N13.8] Start: 07-30-2023 End: 07-30-2023 ambulatory 07/30/2023 11:15 AM EDT Results Only [place] Mike [facility] [address] [place] [address] PROTHROMBIN TIME/PT [PT] [place] Fernandezwn [facility] Comment on above: PROTHROMBIN TIME/PT [PT] Start: 07-13-2023 End: 10-12-2023 25-hydroxyvitamin D3 [Mass/volume] in Serum or Plasma VITAMIN D 25 HYDROXY Lab Routine Encounter for therapeutic drug monitoring Vitamin D deficiency Expected: 07/13/2023, Expires: 10/12/2023 [facility] Work Phone: Comment on above: Expected: 07/13/2023, Expires: Start: 07-13-2023 End: 10-12-2023 CBC W Auto Differential panel - Blood CBC + DIFF Lab Routine Encounter for therapeutic drug monitoring Expected: 07/13/2023, Expires: 10/12/2023 [facility] Work Phone: Comment on above: Expected: 07/13/2023, Expires: Start: 07-13-2023 End: 10-12-2023 Comprehensive metabolic 2000 panel - Serum or Plasma COMP METABOLIC PANEL Lab Routine Encounter for therapeutic drug monitoring Expected: 07/13/2023, Expires: 10/12/2023 [facility] Work Phone: Comment on above: Expected: 07/13/2023, Expires: Start: 07-13-2023 End: 10-12-2023 Lipid 1996 panel - Serum or Plasma LIPID PANEL BASIC Lab Routine Encounter for therapeutic drug monitoring Mixed hyperlipidemia Expected: 07/13/2023, Expires: 10/12/2023 [facility] Work Phone: Comment on above: Expected: 07/13/2023, Expires: Start: 07-13-2023 End: 10-12-2023 Magnesium [Mass/volume] in Serum or Plasma MAGNESIUM BLD Lab Routine Encounter for therapeutic drug monitoring Expected: 07/13/2023, Expires: 10/12/2023 [facility] Work Phone: Comment on above: Expected: 07/13/2023, Expires: Start: 06-02-2023 ANNUAL PCP TEAM CHRONIC DISEASE VISIT ANNUAL PCP TEAM CHRONIC DISEASE VISIT [facility] Start: 06-02-2023 End: 09-01-2023 Hemoglobin A1c in Blood HGB A1C Lab Routine Impaired fasting glucose Expected: 06/02/2023, Expires: 09/01/2023 [facility] Work Phone: Comment on above: Expected: 06/02/2023, Expires: Start: 04-06-2023 Advance Directive Discussion Advance Directive Discussion [facility] Start: 04-06-2023 Behavioral Health Screening Behavioral Health Screening [facility] Start: 04-06-2023 Depression Assessment Depression Assessment [facility] Start: 02-24-2023 End: 04-26-2023 Basic metabolic 2000 panel - Serum or Plasma BASIC METABOLIC PNL Lab Routine Kidney insufficiency Expected: 02/24/2023, Expires: 04/26/2023 [facility] Work Phone: Comment on above: Expected: 02/24/2023, Expires: 4 Start: 02-24-2023 End: 04-26-2023 CBC panel - Blood by Automated count CBC Lab Routine Kidney insufficiency Expected: 02/24/2023, Expires: 04/26/2023 [facility] Work Phone: Comment on above: Expected: 02/24/2023, Expires: 4 Start: 02-24-2023 End: 04-26-2023 Hemoglobin A1c in Blood HGB A1C Lab Routine Impaired fasting glucose Expected: 02/24/2023, Expires: 04/26/2023 [facility] Work Phone: Comment on above: Expected: 02/24/2023, Expires: 4 Start: 02-03-2023 BP CONTROLLED (<130/80) BP CONTROLLED (<130/80) [facility] Start: 12-05-2022 Influenza vaccination INFLUENZA (#1) [facility] Start: 11-13-2022 Adult depression screening assessment DEPRESSION SCREENING [facility] Start: 11-13-2022 ANNUAL PCP TEAM CHRONIC DISEASE VISIT ANNUAL PCP TEAM CHRONIC DISEASE VISIT [facility] Start: 11-13-2022 BP CONTROLLED (<130/80) BP CONTROLLED (<130/80) [facility] Start: 10-16-2022 ANNUAL PCP TEAM CHRONIC DISEASE VISIT ANNUAL PCP TEAM CHRONIC DISEASE VISIT [facility] Start: 09-23-2022 ANNUAL PCP TEAM CHRONIC DISEASE VISIT ANNUAL PCP TEAM CHRONIC DISEASE VISIT [facility] Start: 08-30-2022 End: 10-30-2022 Basic metabolic 2000 panel - Serum or Plasma BASIC METABOLIC PNL Lab Routine Impaired fasting glucose Expected: 08/30/2022, Expires: 10/30/2022 [facility] Work Phone: Comment on above: Expected: 08/30/2022, Expires: 3 Start: 08-30-2022 End: 10-30-2022 Hemoglobin A1c in Blood HGB A1C Lab Routine Impaired fasting glucose Expected: 08/30/2022, Expires: 10/30/2022 [facility] Work Phone: Comment on above: Expected: 08/30/2022, Expires: 3 Start: 08-22-2022 ANNUAL PCP TEAM CHRONIC DISEASE VISIT ANNUAL PCP TEAM CHRONIC DISEASE VISIT [facility] Start: 08-04-2022 End: 10-04-2022 Comprehensive metabolic 2000 panel - Serum or Plasma COMP METABOLIC PANEL Lab Routine Recurrent pulmonary embolism (HCC) Mixed hyperlipidemia Primary hypertension Expected: 08/04/2022, Expires: 10/04/2022 [facility] Work Phone: Comment on above: Expected: 08/04/2022, Expires: 3 Start: 08-04-2022 End: 10-04-2022 Hematocrit [Volume Fraction] of Blood HEMATOCRIT (HCT) Lab Routine Recurrent pulmonary embolism (HCC) Mixed hyperlipidemia Primary hypertension Expected: 08/04/2022, Expires: 10/04/2022 [facility] Work Phone: Comment on above: Expected: 08/04/2022, Expires: 3 Start: 08-04-2022 End: 10-04-2022 Hemoglobin [Mass/volume] in Blood HEMOGLOBIN (HGB) Lab Routine Recurrent pulmonary embolism (HCC) Mixed hyperlipidemia Primary hypertension Expected: 08/04/2022, Expires: 10/04/2022 [facility] Work Phone: Comment on above: Expected: 08/04/2022, Expires: 3 Start: 08-04-2022 End: 10-04-2022 Lipid 1996 panel - Serum or Plasma LIPID PANEL BASIC Lab Routine Recurrent pulmonary embolism (HCC) Mixed hyperlipidemia Primary hypertension Expected: 08/04/2022, Expires: 10/04/2022 [facility] Work Phone: Comment on above: Expected: 08/04/2022, Expires: 3 Start: 07-03-2022 ANNUAL PCP TEAM CHRONIC DISEASE VISIT ANNUAL PCP TEAM CHRONIC DISEASE VISIT [facility] Start: 07-03-2022 BP CONTROLLED (<130/80) BP CONTROLLED (<130/80) [facility] Start: 05-16-2022 ANNUAL PCP TEAM CHRONIC DISEASE VISIT ANNUAL PCP TEAM CHRONIC DISEASE VISIT [facility] Start: 05-16-2022 BP CONTROLLED (<130/80) BP CONTROLLED (<130/80) [facility] Start: 05-16-2022 End: 07-16-2022 CBC panel - Blood by Automated count CBC Lab Routine FCI (current) use of anticoagulants Expected: 05/16/2022, Expires: 07/16/2022 [facility] Work Phone: Comment on above: Expected: 05/16/2022, Expires: 3 Start: 05-16-2022 End: 07-16-2022 Comprehensive metabolic 2000 panel - Serum or Plasma COMP METABOLIC PANEL Lab Routine Mixed hyperlipidemia Expected: 05/16/2022, Expires: 07/16/2022 [facility] Work Phone: Comment on above: Expected: 05/16/2022, Expires: 3 Start: 05-16-2022 End: 07-16-2022 Lipid 1996 panel - Serum or Plasma LIPID PANEL BASIC Lab Routine Mixed hyperlipidemia Expected: 05/16/2022, Expires: 07/16/2022 [facility] Work Phone: Comment on above: Expected: 05/16/2022, Expires: 3 Start: 05-16-2022 End: 07-16-2022 PSA/PROSTSPECAG SCRN PSA/PROSTSPECAG SCRN Lab Routine Screening for prostate cancer Expected: 05/16/2022, Expires: 07/16/2022 [facility] Work Phone: Comment on above: Expected: 05/16/2022, Expires: 3 Start: 04-06-2022 ADVANCE DIRECTIVE DISCUSSION ADVANCE DIRECTIVE DISCUSSION [facility] Start: 04-06-2022 DEPRESSION ASSESSMENT DEPRESSION ASSESSMENT [facility] Start: 03-24-2022 Patient discharge [facility] Work Phone: Start: 02-03-2022 End: 04-05-2022 TOX SCREEN ROUT UR TOX SCREEN ROUT UR Lab Routine Chronic low back pain without sciatica, unspecified back pain laterality Expected: 02/03/2022, Expires: 04/05/2022 [facility] Work Phone: Comment on above: Expected: 02/03/2022, Expires: Start: 12-05-2021 Influenza vaccination INFLUENZA (#1) [facility] Start: 07-09-2021 Adult depression screening assessment DEPRESSION SCREENING [facility] Start: 04-06-2021 ADVANCE DIRECTIVE DISCUSSION ADVANCE DIRECTIVE DISCUSSION [facility] Start: 04-06-2021 DEPRESSION ASSESSMENT DEPRESSION ASSESSMENT [facility] Start: 10-27-2019 BP CONTROLLED (<130/80) BP CONTROLLED (<130/80) [facility] Start: 08-30-1963 Anxiety Screening Anxiety Screening [facility] Start: [birth year]30-1963 Depression Screening Depression Screening [facility] End: 09-14-2024 25-hydroxyvitamin D3 [Mass/volume] in Serum or Plasma VITAMIN D 25 HYDROXY Lab Routine Vitamin D deficiency Every 3 months for 6 Occurrences starting 09/15/2023 until 09/14/2024 [facility] Comment on above: Every 3 months for 6 Occurrences startin g 09/15/2023 until 09/14/2024 BACH SCREENING TEST BACH SCREENI NG TEST Procedures Routine Primary hypertension Ordered: 07/25/2024 [facility] Comment on above: Ordered: 07/25/2024 BACH SCREENING TEST BACH SCREENI NG TEST Procedures Routine Medicare annual wellness visit, subsequent MCI (mild cognitive impairment) Ordered: 08/15/2024 [facility] Work Phone: Comment on above: Ordered: 08/15/2024 BLADDER SCAN BLADDER SCAN Procedures Routine Benign prostatic hyperplasia with nocturia Ordered: 08/10/2023 [facility] Work Phone: Comment on above: Ordered: 08/10/2023 End: 09-14-2024 CBC W Auto Differential panel - Blood COMPLETE BLOOD COUNT AND DIFFERENTIAL Lab Routine Primary hypertension Encounter for therapeutic drug monitoring Every 3 months for 6 Occurrences starting 09/15/2023 until 09/14/2024 [facility] Work Phone: Comment on above: Every 3 months for 6 Occurrences startin g 09/15/2023 until 09/14/2024 End: 09-14-2024 Comprehensive metabolic 2000 panel - Serum or Plasma COMPREHENSIVE METABOLIC PANEL Lab Routine Primary hypertension Encounter for therapeutic drug monitoring Every 3 months for 6 Occurrences starting 09/15/2023 until 09/14/2024 [facility] Comment on above: Every 3 months for 6 Occurrences startin g 09/15/2023 until 09/14/2024 End: 09-07-2025 CT Chest W contrast IV CT CHEST W IVCON Radiology Routine Shortness of breath 1 Occurrences starting 08/08/2024 until 09/07/2025 [facility] Work Phone: Comment on above: 1 Occurrences starting 08/08/2024 until 09/07/2025 End: 03-16-2025 CT Head WO contrast CT BRAIN WO IVCON Radiology Routine Primary hypertension Dizziness 1 Occurrences starting 02/15/2024 until 03/16/2025 [facility] Work Phone: Comment on above: 1 Occurrences starting 02/15/2024 until 03/16/2025 ECG COMPLETE ECG COMPLETE ECG Routine Screening for ischemic heart disease Ordered: 06/08/2023 [facility] Work Phone: Comment on above: Ordered: 06/08/2023 ECG COMPLETE ECG COMPLETE ECG Routine SOB (shortness of breath) Ordered: 01/06/2024 [facility] Work Phone: Comment on above: Ordered: 01/06/2024 End: 07-26-2024 Echocardiography ECHO Cardiology Routine Primary hypertension 1 Occurrences starting 07/27/2023 until 07/26/2024 [facility] Work Phone: Comment on above: 1 Occurrences starting 07/27/2023 until 07/26/2024 End: 09-14-2024 Hemoglobin A1c in Blood HEMOGLOBIN A1C Lab Routine Impaired fasting glucose Every 3 months for 6 Occurrences starting 09/15/2023 until 09/14/2024 [facility] Comment on above: Every 3 months for 6 Occurrences startin g 09/15/2023 until 09/14/2024 End: 02-18-2023 INR in Platelet poor plasma by Coagulation assay INR (POC) Lab Routine Recurrent pulmonary embolism (HCC) Once per month for 99 Occurrences starting 02/19/2022 until 02/18/2023 [facility] Work Phone: Comment on above: Once per month for 99 Occurrences starti ng 02/19/2022 until 02/18/2023 End: 11-07-2023 INR in Platelet poor plasma by Coagulation assay INR (POC) Lab Routine Recurrent pulmonary embolism (HCC) [facility] (current) use of anticoagulants Once per week for 99 Occurrences starting 11/06/2022 until 11/07/2023 [facility] Work Phone: Comment on above: Once per week for 99 Occurrences startin g 11/06/2022 until 11/07/2023 End: 09-14-2024 LIPID PANEL, NONFASTING LIPID PANEL, NONFASTING Lab Routine Mixed hyperlipidemia Every 3 months for 6 Occurrences starting 09/15/2023 until 09/14/2024 [facility] Comment on above: Every 3 months for 6 Occurrences startin g 09/15/2023 until 09/14/2024 End: 08-24-2025 LUNG DIFFUSION CAPACITY (DLCO) LUNG DIFFUSION CAPACITY (DLCO) PFT Routine Shortness of breath 1 Occurrences starting 07/25/2024 until 08/24/2025 [facility] Work Phone: Comment on above: 1 Occurrences starting 07/25/2024 until 08/24/2025 LUNG DIFFUSION CAPACITY (DLCO) L ADAM DIFFUSION CAPACITY (DLCO) PFT Routine Shortness of breath 08/04/2024 12:22 PM EDT [facility] Work Phone: End: 09-14-2024 Magnesium [Mass/volume] in Serum or Plasma MAGNESIUM Lab Routine Encounter for therapeutic drug monitoring Every 3 months for 6 Occurrences starting 09/15/2023 until 09/14/2024 [facility] Comment on above: Every 3 months for 6 Occurrences startin g 09/15/2023 until 09/14/2024 End: 06-16-2024 MR Lumbar spine WO contrast MRI LUMBAR SPINE WO IVCON Radiology Routine Lumbar pain Acute bilateral low back pain without sciatica Fall, subsequent encounter 1 Occurrences starting 05/18/2023 until 06/16/2024 [facility] Work Phone: Comment on above: 1 Occurrences starting 05/18/2023 until 06/16/2024 End: 08-24-2025 NITRIC OXIDE, EXHALED NITRIC OXIDE, EXHALED PFT Routine Shortness of breath 1 Occurrences starting 07/25/2024 until 08/24/2025 [facility] Comment on above: 1 Occurrences starting 07/25/2024 until 08/24/2025 End: 11-19-2025 NITRIC OXIDE, EXHALED NITRIC OXIDE, EXHALED PFT Routine Mild persistent asthma without complication (HCC) 1 Occurrences starting 10/20/2024 until 11/19/2025 [facility] Comment on above: 1 Occurrences starting 10/20/2024 until 11/19/2025 End: 06-16-2025 NM Heart Perfusion W stress and W radionuclide IV NM CARDIAC PERF STRESS/PHARM Radiology Routine Shortness of breath 1 Occurrences starting 05/17/2024 until 06/16/2025 [facility] Work Phone: Comment on above: 1 Occurrences starting 05/17/2024 until 06/16/2025 Patient Education ED Head Injury (Adult) [facility] Work Phone: Patient referral [facility] Work Phone: POST VOID RESIDUAL POST VOID RES IDUAL Procedures Routine Benign prostatic hyperplasia with nocturia Ordered: 11/16/2023 [facility] Work Phone: Comment on above: Ordered: 11/16/2023 End: 12-26-2022 PT panel - Platelet poor plasma by Coagulation assay PROTHROMBIN TIME/PT Lab Routine [facility] (current) use of anticoagulants Recurrent pulmonary embolism (HCC) 99 Occurrences starting 12/26/2021 until 12/26/2022 [facility] Work Phone: Comment on above: 99 Occurrences starting 12/26/2021 until 12/26/2022 End: 11-07-2023 PT panel - Platelet poor plasma by Coagulation assay PROTHROMBIN TIME/PT Lab Routine Recurrent pulmonary embolism (HCC) [facility] (current) use of anticoagulants Once per week for 99 Occurrences starting 11/06/2022 until 11/07/2023 [facility] Work Phone: Comment on above: Once per week for 99 Occurrences startin g 11/06/2022 until 11/07/2023 End: 03-19-2024 PT panel - Platelet poor plasma by Coagulation assay PROTHROMBIN TIME/PT Lab Routine Recurrent pulmonary embolism (HCC) Once per week for 53 Occurrences starting 03/20/2023 until 03/19/2024 [facility] Work Phone: Comment on above: Once per week for 53 Occurrences startin g 03/20/2023 until 03/19/2024 End: 03-24-2025 PT panel - Platelet poor plasma by Coagulation assay PROTHROMBIN TIME Lab Routine Recurrent pulmonary embolism (HCC) 99 Occurrences starting 03/24/2024 until 03/24/2025, 1 completed [facility] Work Phone: Comment on above: 99 Occurrences starting 03/24/2024 until 03/24/2025, 1 completed SPINE INTERVENTION PROCEDURE SPI NE INTERVENTION PROCEDURE Procedures Routine Radiculopathy, lumbar region Ordered: 11/12/2022 [facility] Work Phone: Comment on above: Ordered: 11/12/2022 End: 08-24-2025 SPIROMETRY WITH DILATOR IF OBSTRUCTED SPIROMETRY WITH DILATOR IF OBSTRUCTED PFT Routine Shortness of breath 1 Occurrences starting 07/25/2024 until 08/24/2025 [facility] Comment on above: 1 Occurrences starting 07/25/2024 until 08/24/2025 SPIROMETRY WITH DILA TOR IF OBSTRUCTED SPIROMETRY WITH DILATOR IF OBSTRUCTED PFT Routine Shortness of breath 08/04/2024 12:22 PM EDT [facility] Work Phone: End: 05-26-2024 US Carotid arteries - bilateral US CAROTID ARTERIES [facility] Vascular Lab Routine Stenosis of left carotid artery 1 Occurrences starting 05/26/2023 until 05/26/2024 [facility] Work Phone: Comment on above: 1 Occurrences starting 05/26/2023 until 05/26/2024 End: 08-11-2024 US Carotid arteries - bilateral US CAROTID ARTERIES [facility] Vascular Lab Routine Stenosis of left carotid artery 1 Occurrences starting 08/12/2023 until 08/11/2024 [facility] Work Phone: Comment on above: 1 Occurrences starting 08/12/2023 until 08/11/2024 End: 05-24-2025 US Carotid arteries - bilateral US CAROTID ARTERIES [facility] Vascular Lab Routine PAD (peripheral artery disease) ([facility]) 1 Occurrences starting 05/24/2024 until 05/24/2025 [facility] Comment on above: 1 Occurrences starting 05/24/2024 until 05/24/2025 End: 05-26-2024 US Lower extremity artery - bilateral PVR LEG [facility] Vascular Lab Routine PAD (peripheral artery disease) ([facility]) 1 Occurrences starting 05/26/2023 until 05/26/2024 [facility] Work Phone: Comment on above: 1 Occurrences starting 05/26/2023 until 05/26/2024 End: 08-11-2024 US Lower extremity artery - bilateral PVR LEG [facility] Vascular Lab Routine PAD (peripheral artery disease) ([facility]) 1 Occurrences starting 08/12/2023 until 08/11/2024 [facility] Comment on above: 1 Occurrences starting 08/12/2023 until 08/11/2024 End: 05-24-2025 US Lower extremity artery - bilateral PVR LEG [facility] V[facility] Lab Routine Stenosis of left carotid artery 1 Occurrences starting 05/24/2024 until 05/24/2025 [facility] Work Phone: Comment on above: 1 Occurrences starting 05/24/2024 until 05/24/2025 End: 03-02-2025 XR Cervical spine AP and Lateral and oblique XR CERV OTHER 4V AP/LAT/OBL Radiology Routine Neck pain 1 Occurrences starting 02/01/2024 until 03/02/2025 [facility] Work Phone: Comment on above: 1 Occurrences starting 02/01/2024 until 03/02/2025 XR Cervical spine AP and Lateral and oblique XR CERV OTHER 4V AP/LAT/OBL Radiology Routine Neck pain 02/01/2024 3:14 PM EDT [facility] [...] dose, monovalent (MODERNA) Edgarindiana Loaiza Work Phone: [facility] 05-17-2024 COVID-19 vaccine, ag e 12+ yr (MODERNA) Zeny Genaro VINYL CUTTER[employer]INFO SPECIALIST Work Phone: [facility] 12-10-2023 COVID-19 original vaccine, booster dose, monovalent (MODERNA) Zeny Genaro VINYL CUTTER.INFO SPECIALIST Work Phone: [facility] 12-10-2023 COVID-19 vaccine, ag e 12+ yr (MODERNA) Zeny Genaro VINYL CUTTER.INFO SPECIALIST Work Phone: [facility] 11-27-2023 influenza (HD-IIV4) vaccine, age 65+ yr, high dose, quadrivalent, PF (FLUZONE HIGH-DOSE) Zeny Genaro V[employer]YL CUTTER.INFO SPECIALIST Work Phone: [facility] 11-27-2023 Seasonal trivalent influenza vaccine, adjuvanted, preservative free Zeny Genaro VINYL CUTTER.INFO SPECIALIST Work Phone: [facility] 11-27-2023 influenza virus vacc ine, unspecified formulation [facility]cf Provider [facility] 06-24-2023 COVID-19 vaccine, ag e 12+ yr, season (MODERNA) Zeny Genaro VINYL CUTTER.INFO SPECIALIST Work Phone: [facility] 06-24-2023 COVID-19 vaccine, ag e 12+ yr, bivalent (MODERNA) Zeny Genaro VINYL CUTTER.INFO SPECIALIST Work Phone: [facility] 12-29-2022 COVID-19 vaccine, ag e 12+ yr, season (MODERNA) Zeny Genaro VINYL CUTTER.INFO SPECIALIST Work Phone: [facility] 12-02-2022 respiratory syncytia l virus (RSV) vaccine, bivalent (ABRYSVO) Mckinley Leal MD Work Phone: [facility] Work Phone: 12-01-2022 influenza (aIIV4) vaccine, age 65+ yr, quadrivalent, PF (FLUAD QUAD) Franc Hills MD Work Phone: [facility] Work Phone: 12-01-2022 influenza virus vacc ine, unspecified formulation Zeny Lam V[employer]YL CUTTER.INFO SPECIALIST Work Phone: [facility] 07-31-2022 COVID-19 vaccine, ag e 12+ yr, bivalent (PFIZER-BIONTECH) Franc Hills MD Work Phone: [facility] 06-05-2022 zoster vaccine recombinant Franc Hills MD Work Phone: [facility] Work Phone: 04-07-2022 zoster vaccine recombinant Franc Hills MD Work Phone: [facility] Work Phone: 12-13-2021 COVID-19 vaccine, ag e 12+ yr, bivalent booster (PFIZER-BIONTECH) Sara Older VINYL CUTTER.INFO SPECIALIST Work Phone: [facility] 11-12-2021 influenza (aIIV4) vaccine, age 65+ yr, quadrivalent, PF (FLUAD QUAD) Franc Hills MD Work Phone: [facility] 11-12-2021 influenza, injectabl e, quadrivalent, contains preservative Franc Hills MD Work Phone: [facility] Work Phone: 07-03-2021 COVID-19 vaccine, ag e 12+ yr (PFIZER-BIONTECH - PURPLE TOP) Sara Older VINYL CUTTER.INFO SPECIALIST Work Phone: [facility] Work Phone: 01-10-2021 tetanus toxoid, redu ankita diphtheria toxoid, and acellular pertussis vaccine, adsorbed Franc Hills MD Work Phone: [facility] Work Phone: 01-01-2021 COVID-19 vaccine, ag e 12+ yr (PFIZER-BIONTECH - PURPLE TOP) Franc Hills MD Work Phone: [facility] Work Phone: 11-13-2020 influenza, high dose seasonal, preservative-free Franc Hills MD Work Phone: [facility] Work Phone: 05-31-2020 COVID-19 vaccine, ag e 12+ yr (PFIZER-BIONTECH - PURPLE TOP) Franc Hills MD Work Phone: [facility] 05-11-2020 COVID-19 vaccine, ag e 12+ yr (PFIZER-BIONTECH - PURPLE TOP) Franc Hills MD Work Phone: [facility] 11-19-2019 influenza, high dose seasonal, preservative-free Franc Hills MD Work Phone: [facility] Work Phone: 12-05-2018 influenza, high dose seasonal, preservative-free Franc Hills MD Work Phone: [facility] Work Phone: 12-05-2018 Seasonal trivalent influenza vaccine, adjuvanted, preservative free Franc Hills MD Work Phone: [facility] Work Phone: 12-14-2017 influenza, high dose seasonal, preservative-free Franc Hills MD Work Phone: [facility] Work Phone: 12-14-2017 Seasonal trivalent influenza vaccine, adjuvanted, preservative free Franc Hills MD Work Phone: [facility] Work Phone: 10-21-2017 tetanus toxoid, redu ankita diphtheria toxoid, and acellular pertussis vaccine, adsorbed Franc Hills MD Work Phone: [facility] Work Phone: 11-26-2016 Seasonal trivalent influenza vaccine, adjuvanted, preservative free Franc Hills MD Work Phone: [facility] Work Phone: 12-05-2015 influenza, injectabl e, quadrivalent, preservative free Franc Hills MD Work Phone: [facility] Work Phone: 12-05-2015 influenza, seasonal, injectable Franc Hills MD Work Phone: [facility] 04-17-2015 pneumococcal conjuga te vaccine, 13 valent Franc Hills MD Work Phone: [facility] 01-04-2015 influenza, high dose seasonal, preservative-free Franc Hills MD Work Phone: [facility] Work Phone: 01-18-2014 influenza, seasonal, injectable Franc Hills MD Work Phone: [facility] 12-19-2013 pneumococcal polysaccharide vaccine, 23 valent Frnac Hills MD Work Phone: [facility] Work Phone: 12-08-2013 [facility] 12-08-2013 pneumococcal vaccine , unspecified formulation [facility] 12-05-2013 Influenza virus vaccine [facility] 12-05-2013 influenza, seasonal, injectable, preservative free Franc Hills MD Work Phone: [facility] Work Phone: 12-13-2012 influenza virus vacc ine, unspecified formulation Franc Hills MD Work Phone: [facility] Work Phone: 12-27-2011 influenza virus vacc ine, unspecified formulation Franc Hills MD Work Phone: [facility] Work Phone: 01-04-2011 influenza virus vacc ine, unspecified formulation Franc Hills MD Work Phone: [facility] Work Phone: 01-19-2010 influenza virus vacc ine, unspecified formulation Franc Hills MD Work Phone: [facility] 01-04-2010 pneumococcal polysaccharide vaccine, 23 valent Franc Hills MD Work Phone: [facility] Work Phone: 05-30-2009 tetanus and diphther ia toxoids, adsorbed, preservative free, for adult use (2 Lf of tetanus toxoid and 2 Lf of diphtheria toxoid) Franc Hills MD Work Phone: [facility] Work Phone: 01-08-2009 influenza virus vacc ine, unspecified formulation Franc Hills MD Work Phone: [facility] Work Phone: 12-07-2008 pneumococcal polysaccharide vaccine, 23 valent Franc Hills MD Work Phone: [facility] Work Phone: Payers Date Payer Category Payer Medicare (Managed Care) [employer] [id number] 2024 Unknown [employer] [id number] 2024-Present [phone] [address] [place] [address] O [id number] 2024 Medicare [id number] 2023 Self-pay [id number] 2022 Unknown [id number] 2015 Medicare [employer] PPO [id number] 2015-Present [phone] [place] [id number] [facility] [id number] 2015 Medicare [id number] 2014 Medicare [id number] 2014 [id number] Unknown [id number] Social History Date Type Detail Facility Start: 04-02-2012 End: 11-19-2024 Tobacco smoking status NHIS Ex-smoker [facility] Work Phone: Start: 04-06-1960 End: 04-06-1980 History of tobacco use Current smoker [facility] Work Phone: Start: 04-06-1960 End: 04-06-1980 History of tobacco use Cigarette Smoker [facility] Work Phone: Start: 05-16-2021 End: 11-15-2024 Alcohol intake Ex-drinker (finding) [facility] Start: 05-16-2021 End: 08-08-2022 Alcohol intake [facility] Start: 02-12-2019 End: 01-17-2020 History SDOH Alcohol Frequency 3 [facility] Start: 11-28-2019 End: 05-26-2022 History SDOH Alcohol Std Drinks 2 [facility] Start: 01-17-2020 End: 05-26-2022 History SDOH Alcohol Binge 1 [facility] Start: 04-20-2017 History SDOH Alcohol Comment CAGE negative. [facility] Start: 02-12-2019 End: 05-26-2022 History SDOH Social Connections Phone 5 [facility] Start: 02-12-2019 Education 18 [facility] Start: 1945 Sex Assigned At Male [facility] Start: 12-14-2019 End: 02-03-2022 Exposure to SARS-CoV-2 (event) Not sure [facility] Start: 09-28-2021 End: 03-24-2022 Tobacco smoking status NHIS Unknown if ever smoked [facility] Work Phone: Start: 05-08-2014 Occasional [facility] Start: 01-10-2021 None [facility] Start: 01-10-2021 Alone [facility] Start: 01-10-2021 Non-smoker [facility] Start: 04-02-2012 End: 12-14-2023 Tobacco use and exposure Smokeless tobacco non-user [facility] Start: 12-16-2021 End: 12-26-2021 Exposure to SARS-CoV-2 (event) Unable to assess [facility] Work Phone: Start: 05-26-2022 End: 06-02-2022 History SDOH Alcohol Frequency 4 [facility] Start: 08-11-2022 Alcohol Comment stopped 07/19/2022 [facility] Start: 05-26-2022 End: 08-08-2022 Social connection and isolation panel [facility] Do you belong to any clubs or organizations such as yazdanism groups, unions, fraternal or athletic groups, or school groups? No [facility] Are you now , , , , never or living with a partner? [facility] How often to you hav e a drink containing alcohol? 2-3 time sa week [facility] Work Phone: How many standard dr inks containing alcohol do you have on a typical day? 1 or 2 [facility] Work Phone: How often do you hav e 6 or more drinks on 1 occasion? Never [facility] Work Phone: Start: 03-07-2012 How hard is it for you to pay for the very basics like food, housing, medical care, and heating Not hard at all [facility] Do you feel stress - tense, restless, nervous, or anxious, or unable to sleep at night because your mind is troubled all the time - these days [OSQ] Not at all [facility] (I/We) worried wheth er (my/our) food would run out before (I/we) got money to buy more. Never true [facility] Start: 12-09-2018 Gender identity Identifies as male gender (finding) [facility] Start: 12-09-2018 Sexual orientation Heterosexual (finding) [facility] How many standard dr inks containing alcohol do you have on a typical day? 3 or 4 [facility] Start: 01-13-2020 Alcoholic beverage intake Current drinker of alcohol (finding) [facility] Do you feel stress - tense, restless, nervous, or anxious, or unable to sleep at night because your mind is troubled all the time - these days [OSQ] Only a little [facility] How often to you hav e a drink containing alcohol? 2-4 times a month [facility] How hard is it for y ou to pay for the very basics like food, housing, medical care, and heating Not very hard [facility] How often to you hav e a drink containing alcohol? Monthly or less [facility] Medical Equipment Procedure Code Equipment Code Equipment Origin al Text Equipment Identifier Dates Gas Io Ispan Vsn Sys 125gm Sf6 - [id number] Start: 05-04-2013 Lens Iol +21.5 D iop 13mm 6mm - [id number] Start: 05-04-2013 Patch Bovine Pericardial Vascular Duravess 8x8 - [id number] Start: 06-10-2019 Goals Date Patient Goal Desired Activity /State Personal health goal Functional Status Date Assessment Result Facility 08-08-2024 Total score [AUDIT-C] 2 08/09/19 10:08 AM EDT User, [email or web address] [facility] 08-08-2024 How often to you hav e a drink containing alcohol? Monthly or less 08/08/2024 10:08 AM EDT User, Mychart Monthly or less [facility] 08-08-[address] inks containing alcohol do you have on a typical day? 3 or 4 08/08/2024 10:08 AM EDT User, [email or web address] 3 or 4 [facility] 08-08-2024 How often do you hav e 6 or more drinks on 1 occasion? Never 08/08/2024 10:08 AM EDT User, Giovanihart Never [facility] 06-07-2024 Total score [AUDIT-C] 3 06/08/19 7:48 PM EST [email or web address] 06-07-2024 Within the last year , have you been humiliated or emotionally abused in other ways by your partner or ex-partner? No 06/07/2024 7:48 PM EST User, Giovanihart No [facility] 06-07-2024 Within the last year , have you been afraid of your partner or ex-partner? No 06/07/2024 7:48 PM EST User, Giovanihart No [facility] 06-07-2024 Within the last year , have you been raped or forced to have any kind of sexual activity by your partner or ex-partner? No 06/07/2024 7:48 PM EST User, Giovanihart No [facility] 06-07-2024 Within the last year , have you been kicked, hit, slapped, or otherwise physically hurt by your partner or ex-partner? No 06/07/2024 7:48 PM EST User, Mychart No [facility] 06-07-2024 How often to you hav e a drink containing alcohol? 2-4 times a month 06/07/2024 7:48 PM EST User, Mychart 2-4 times a month [facility] 06-07-[address] inks containing alcohol do you have on a typical day? 3 or 4 06/07/2024 7:48 PM EST User, Mychart 3 or 4 [facility] 06-07-2024 How often do you hav e 6 or more drinks on 1 occasion? Never 06/07/2024 7:48 PM EST UserBobbyt Never [facility] 06-06-2024 Total score [AUDIT-C] 3 06/07/19 9:06 AM EST User, Giovanihart [facility] 06-06-2024 Within the last year , have you been humiliated or emotionally abused in other ways by your partner or ex-partner? No 06/06/2024 9:06 AM EST User, Giovanihart No [facility] 06-06-2024 Within the last year , have you been afraid of your partner or ex-partner? No 06/06/2024 9:06 AM EST User, Giovanihart No [facility] 06-06-2024 Within the last year , have you been raped or forced to have any kind of sexual activity by your partner or ex-partner? No 06/06/2024 9:06 AM EST User, Bobbyt No [facility] 06-06-2024 Within the last year , have you been kicked, hit, slapped, or otherwise physically hurt by your partner or ex-partner? No 06/06/2024 9:06 AM EST User, Bobbyt No [facility] 06-06-2024 How often to you hav e a drink containing alcohol? 2-4 times a month 06/06/2024 9:06 AM EST User, Giovanihart 2-4 times a month [facility] 06-06-[address] inks containing alcohol do you have on a typical day? 3 or 4 06/06/2024 9:06 AM EST User, Giovanihart 3 or 4 [facility] 06-06-2024 How often do you hav e 6 or more drinks on 1 occasion? Never 06/06/2024 9:06 AM EST User, Bobbyt Never [facility] 06-11-2019 Are you deaf, or do you have serious difficulty hearing No 06/11/2019 9:31 AM Hilaria Shook, MORIAH No [facility] 06-11-2019 Are you blind, or do you have serious difficulty seeing, even when wearing glasses No 06/11/2019 9:31 AM Hilaria Shook RN No [facility] 06-11-2019 Do you have serious difficulty walking or climbing stairs No 06/11/2019 9:31 AM Hilaria Shook, MORIAH No [facility] 06-11-2019 Do you have difficul ty dressing or bathing No 06/11/2019 9:31 AM Hilaria Shook, MORIAH No [facility] 06-11-2019 Because of a physica l, mental, or emotional condition, do you have difficulty doing errands alone such as visiting a physician's office or shopping No 06/11/2019 9:31 AM Hilaria Shook, MORIAH No [facility] Mental Status Date Assessment Result Facility 11-19-2024 Cognitive function Level Of Cons ciousness Awake;Alert;Appropriate;Fol lows Commands [facility] Work Phone: 03-24-2022 Cognitive function Level Of Cons ciousness Drowsy [facility] Work Phone: 06-11-2019 Because of a physica l, mental, or emotional condition, do you have serious difficulty concentrating, remembering, or making decisions No 06/11/2019 9:31 AM Hilaria Shook, MORIAH No [facility] Clinical Notes 06-10-2019 to 11-20-2024 Note Date & Type Note Facility 11-20-2024 Discharge summary Note Date/Time November 20, 2024 1:18am [facility] Medical Records Department [address] [place] [address] Emergency Department Summary 11/19/24 MR#: [id number] Acct: [id number] Name: ALEX BROOKS Rep #:[id number] : [...] or difficulty breathing. Denies any choking episode. [facility] Medical History Wears glasses Alcohol use [...] Reaction Status Date / Time cephalexin (From [employer]) Allergy Intermediate Rash Verified 11/19/24 19:08 cyclobenzaprine [...] 83.7 H Lymph % (Auto) 12.2 L [place] % (Auto) 3.3 Eos % (Auto) 0.1 [...] Calcium 9.1 Management Discussion w/another healthcare provider: Mainstreaming Facilitator (GI) Discharge Plan Triage Chief Complaint: Foreign Body ED Provider: Danielle Han Dx/Rx/DC Orders Clinical Impression: Esophageal obstruction due to food impaction, Current use of snf anticoagulation, Dehydration, mild Prescriptions: No Action lisinopril-hydrochlorothiazide [...] Teri Gruber NP Referrals: Zeny Lam NP, BREAKDOWN MILL OPERATOR-C [Non-Staff -Ordering Privileges] - Print Language: Palauan What to do if you have Problems For any increased pain, shortness of breath, bleeding, nausea or vomiting, chestpain, or any unexpected problems, contact your Primary Care Provider. Call [facility] ([phone]) or report to the closest Emergency Room. Call 911 if necessary. 11/20/24 0118 <Electronically signed by Danielle Han DO> Cosigner Signature (if applicable): CC: CHRISTAL Gruber ~ Signed [facility] Work Phone: [phone]) 419-684808-17-2025 Discharge summary [facility] Medical Records Department [address] [place] [address] Emergency Department Summary 11/19/24 MR#: [id number] Acct: [id number] Name: ALEX BROOKS Rep #:[id number] : [...] or difficulty breathing. Denies any choking episode. [facility] Medical History Wears glasses Alcohol use [...] Reaction Status Date / Time cephalexin (From [employer]) Allergy Intermediate Rash Verified 11/19/24 19:08 cyclobenzaprine [...] 83.7 H Lymph % (Auto) 12.2 L [place] % (Auto) 3.3 Eos % (Auto) 0.1 [...] Calcium 9.1 Management Discussion w/another healthcare provider: Mainstreaming Facilitator (GI) Discharge Plan Triage Chief Complaint: Foreign Body ED Provider: Danielle Han Dx/Rx/DC Orders Clinical Impression: Esophageal obstruction due to food impaction, Current use of terminal gauger anticoagulation, Dehydration, mild Prescriptions: No Action lisinopril-hydrochlorothiazide [...] Provider: Teri Gruber NP Referrals: Zeny Lam BREAKDOWN MILL OPERATOR, [facility] M[facility] OPERATOR-C [Non-Staff -Ordering Privileges] - Print Language: Palauan What to do if you have Problems For any increased pain, shortness of breath, bleeding, nausea or vomiting, chestpain, or any unexpected problems, contact your Primary Care Provider. Call [facility] ([phone]) or report tothe closest Emergency Room. Call 911 if necessary. 11/20/24 0118 Cosigner Signature (if applicable): CC: CHRISTAL Gruber ~ Signed [facility]08-12-2025 History of Present illness Narrative* Zeny Lam APRN.INFO SPECIALIST - 11/15/2024 12:53 PM EDT SUBJECTIVE Alex [...] normal. His INR is 2.7. Recording using Tachyus software for draft documentation of the visit was discussed with the patient/authorized career services representative; all questions welcomed and answered. Patient/authorized career services representative agreed to proceed His medications were [...] Endarterectomy - 06/10/2019 Colonic Polyp - 11/29/2018 Group Home (Current) Use of Anticoagulants - 09/15/2018 Recurrent [...] Stable. 4. Recurrent pulmonary embolism (HCC) (I26.99) [facility] (current) use of anticoagulants (Z79.01) INR is [...] per week Types: Marijuana documented [facility] Telephone encounter Note * Telephone Encounter - Zeny Lam APRN.CNP - 10/28/2024 12:00 PM EDT Noted and agree, no call back needed. [facility]07-25-2025 Miscellaneous Notes* Telephone Encounter - Zeny Lam [...] what Zeny wants done. documented in this encounterSelect [facility] Telephone encounter Note * Telephone Encounter - [...] if that is what Zeny wants done. [facility]07-23-2025 Telephone encounter Note* Telephone Encounter - Emerald Hunt LPN - 10/26/2024 11:44 AM EDT Patient called. Verified name and date of . Patient wanted to let Shruti know he appreciates that Shruti called him and will see her and discuss plan at upcoming appointment in December. Emerald Hunt LPN [facility]07-23-2025 Miscellaneous Notes* Telephone Encounter - Emerald Hunt LPN - 10/26/2024 11:44 AM EDT Patient called. Verified name and date of . Patient wanted to let Shruti know he appreciates that Shruti called him and will see her and discuss plan at upcoming appointment in December. Emerald Hunt LPN documented in this encounterSelect [facility] Telephone encounter Note * Telephone Encounter - Celia Negrete LPN - 10/26/2024 8:55 AM EDT Left message to notify patient that medication was sent to his pharmacy. Celia Negrete LPN [facility]07-23-2025 Miscellaneous Notes* Telephone Encounter - Celia Negrete [...] you can send new nefedipine Rx to [facility]. Reports he is almost out of 30 [...] chart. Brandi Lambert LPN documented in this encounterSelect [facility] Telephone encounter Note * Telephone Encounter - Zeny Lam APRN.CNP - 10/26/2024 8:14 AM EDT This has been sent in to the pharmacy. Zeny Lam APRN.CNP [facility]07-23-2025 Telephone encounter Note* Telephone Encounter - Alvin He RN - 10/26/2024 8:05 AM EDT Pt phoned to tell Zeny florenceyumiko for responding so quickly. Pt asking if you can send new nefedipine Rx to [facility]. Reports he is almost out of 30 mg, and right now he can get the 60 mg Rx for $20, lowest perez ever. Pt would like to pick this up today. Pended. [facility]07-22-2025 Telephone encounter Note* Telephone Encounter - Zeny Lam APRN.CNP - 10/25/2024 3:04 PM EDT Please let him know okay to take the total of 60 mg of his nifedipine (2 tabs of the 30 mg dose ok), I updated the med list. Zeny Lam APRN.CNP [facility]07-22-2025 Telephone encounter Note* Telephone Encounter - Brandi Lambetr LPN - 10/25/2024 12:59 PM EDT Pt [...] updated in med chart. Brandi Lambert LPN [facility]07-17-2025 History of Present illness Narrative* Mirlande Funez MD - 10/20/2024 1:30 PM EDT Images from the original note were not included. . Respiratory Manter Note Patient name: Alex Brooks PCP: Zeny Lam APRN.INFO SPECIALIST Referring Physician: same Consultation requested by Zeny Lam for an opinion regarding SOB. My final recommendations will be communicated back to the requesting physician by way of shared Medical record or letter to requesting physician via US mail. Recording using Tachyus software for draft documentation of the visit was discussed with the patient/authorized career services representative; all questions welcomed and answered. 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 Mirlande Maria MA [facility]07-14-2025 Miscellaneous Notes* Telephone Encounter - Mirlande Maria [...] so patient would like rx sent to [facility] [place]. Please review and advise (neither medications are on patients current medication list) Patient will need called back with information. documented in this encounterSelect [facility]25 Telephone encounter Note * Telephone Encounter - [...] wants to do and let me know. [facility]07-14-2025 Telephone encounter Note* Telephone Encounter - Julieth [...] so patient would like rx sent to [facility] [place]. Please review and advise (neither medications are on patients current medication list) Patient will need called back with information. [facility]07-11-2025 Telephone encounter Note* Telephone Encounter - Kristina Youssef LPN - 10/14/2024 1:12 PM EDT Patient notified of results and provider's instructions. Patient verbalizes understanding. Kristina Youssef LPN [facility]07-11-2025 Miscellaneous Notes* Telephone Encounter - Kristina Youssef [...] the lower side he had a different information analyst and she didn't fill the tube all the way to the top (he thought that might contributeto the lower reading). Patient already scheduled for 10/28/2024 for next INR. Antoinette Meadows RN documented in this encounterSelect [facility]25 Telephone encounter Note * Telephone Encounter - Zeny Lam APRN.CNP - 10/14/2024 12:59 PM EDT Okay, noted, continue with current dose of coumadin and ok to repeat INR for when he has scheduled. [facility]07-11-2025 Telephone encounter Note* Telephone Encounter - Antoinette [...] the lower side he had a different information analyst and she didn't fill the tube all the way to the top (he thought that might contributeto the lower reading). Patient already scheduled for 10/28/2024 for next INR. Antoinette Meadows RN [facility]07-08-2025 Telephone encounter Note* Telephone Encounter - Kari Briones LPN - 10/11/2024 2:01 PM EDT Patient notified of below recommendation, verbalized understanding. Kari Briones LPN [facility]07-08-2025 Miscellaneous Notes* Telephone Encounter - Kari Briones [...] advise, Antoinette Meadows RN documented in this encounterSelect [facility]-2025 Telephone encounter Note * Telephone Encounter - Zeny Lam APRN.KAYLA - 10/11/2024 11:23 AM EDT My concern is that it took a while to get his bp back to being controlled. I'm okay with him tryingthe switch but I would monitor blood pressure closely and wait to make any further additional changes until seen with pulmonary. [facility]07-07-2025 Telephone encounter Note* Telephone Encounter - Cyndy [...] Pt back and advise. Cyndy Whelan RN [facility]07-07-2025 Telephone encounter Note* Telephone Encounter - Antoinette Meadows RN - 10/10/2024 10:53 AM EDT See TE. Patient aware closing MC message. Antoinette Meadows RN [facility]07-07-2025 Miscellaneous Notes* Telephone Encounter - Antoinette Meadows RN - 10/10/2024 10:53 AM EDT See TE. Patient aware closing MC message. Antoinette Meadows RN documented in this encounterSelect [facility] Telephone encounter Note * Telephone Encounter - Antoinette Meadows RN - 10/10/2024 10:52 AM EDT See TE 10/10/2024. Patient aware closing MC message. Antoinette Meadows RN [facility]07-07-2025 Miscellaneous Notes* Telephone Encounter - Antoinette Meadows RN - 10/10/2024 10:52 AM EDT See TE 10/10/2024. Patient aware closing MC message. Antoinette Meadows RN documented in this encounterSelect [facility] Telephone encounter Note * Telephone Encounter - [...] Please review and advise, Antoinette Meadows RN [facility]07-02-2025 Telephone encounter Note* Telephone Encounter - Cyndy Whelan RN - 10/05/2024 4:55 PM EDT Pt called and is notified of providers results and instructions. Pt voices understanding. Updated Anticoag tracker. Changed Pt's INR appointment. Cyndy Whelan RN [facility]07-02-2025 Miscellaneous Notes* Telephone Encounter - Cyndy Whelan [...] advise, Tammie Munguia RN documented in this encounterSelect [facility]-2025 Telephone encounter Note * Telephone Encounter - Zeny Lam APRN.CNP - 10/05/2024 3:54 PM EDT Since it is his first low then it is okay to continue current coumadin dosing and then repeat INR in 1 week. Thanks. [facility]07-02-2025 Telephone encounter Note* Telephone Encounter - Tammie [...] Please review and advise, Tammie Munguia RN [facility]-20[facility] Telephone encounter Note* Telephone Encounter - Haydee Lee LPN - 09/23/2024 5:11 PM EDT Patient notified of providers message and verbalized understanding [facility]06-20-2025 Miscellaneous Notes* Telephone Encounter - Haydee Lee [...] appt for INR lab at the [facility] lab on MR on 10/05/24. documented in this encounterSelect [facility]-2025 Telephone encounter Note * Telephone Encounter - Mani Edwards MD - 09/23/2024 4:48 PM EDT No change Recheck in 2 weeks Noted in initial message patient knew that would stay on same dose and recheck in 2 weeks [facility] Work Phone: [phone] Telephone encounter Note* Telephone Encounter - Alvin He RN - 09/23/2024 2:14 PM EDT Pt checking on provider's recommendation. [facility]-19-2025 Telephone encounter Note* Telephone Encounter - Tammie Munguia RN - 09/22/2024 12:08 PM EDT Patient calls to see the status of this request. Please review and advise, Tammie Munguia RN [facility]-18-2025 Telephone encounter Note* Telephone Encounter - Gabby Rm LPN - 09/21/2024 11:46 AM EDT Duplicate entry [facility]06-18-2025 Miscellaneous Notes* Telephone Encounter - Gabby Rm [...] Information or narrative: no documented in this encounterSelect [facility]-2025 Telephone encounter Note * Telephone Encounter - [...] appt for INR lab at the [facility] lab on MR on 10/05/24. [facility]-18-2025 Telephone encounter Note* Telephone Encounter - Gabby Rm LPN - 09/21/2024 11:11 AM EDT Last INR: INR Home CoaguChek 2.9 09/21/2024 Current dose of coumadin is: 5 mg alternating with 7.5 mg . Last date of dose change: 09/07/24. Previous INR (date and result): 09/07/24 3.0 Additional Clinical Information or narrative: no [facility]-16-2025 Telephone encounter Note* Telephone Encounter - Cyndy Whelan RN - 09/19/2024 3:42 PM EDT Pt called and is notified of providers message and instructions. Pt voices understanding. Cyndy Whelan RN [facility]06-16-2025 Miscellaneous Notes* Telephone Encounter - Cyndy Whelan [...] update. Graciela Parker RN documented in this encounterSelect [facility]06-[facility]-2025 Telephone encounter Note * Telephone Encounter - Zeny Lam APRN.CNP - 09/19/2024 12:57 PM EDT Please let him know I ordered labs and he will also be due for a urine test so I ordered that too. [facility]06-12-2025 Telephone encounter Note* Telephone Encounter - Edgar Landa LPN - 09/15/2024 4:14 PM EDT Pt. notified will discuss further imaging after appt. Edgar Landa LPN [facility]06-12-2025 Miscellaneous Notes* Telephone Encounter - Edgar Landa [...] appt? Edgar Landa LPN documented in this encounterSelect [facility]-2025 Telephone encounter Note * Telephone Encounter - Edgar Landa LPN - 09/14/2024 12:05 PM EDT Patient was ordered CT Chest by PCP but would like to postpone until after his consult appointment on 10/20. His last CXR was August 2023. Asking if imaging is indicated prior to appt? Edgar Landa LPN [facility]-2025 Telephone encounter Note* Telephone Encounter - Graciela Parker RN - 09/14/2024 11:58 AM EDT Pt has OV appt with Lauryn Lam CNP on 11/15/24. He is asking if provider would place any lab orders for him to complete prior to this appt. Please call patient with an update. Graciela Parker RN [facility]-2025 Telephone encounter Note* Telephone Encounter - Gabby Rm LPN - 09/12/2024 2:19 PM EDT PATIENT NOTIFIED OF SAME. Will call back to schedule after verifing Dr. Funez is in network. [facility]06-09-2025 Miscellaneous Notes* Telephone Encounter - Gabby Rm [...] advise, Tammie Munguia RN documented in this encounterSelect [facility]-2025 Telephone encounter Note * Telephone Encounter - Zeny Lam APRN.CNP - 09/12/2024 1:45 PM EDT Please let him know that I think it might be more beneficial at this point for him to follow up with seeing pulmonary (already has a consult placed) rather than repeat the PFTs. [facility]-09-2025 Telephone encounter Note* Telephone Encounter - Tammie [...] Please review and advise, Tammie Munguia RN [facility]06-06-2025 Telephone encounter Note* Telephone Encounter - Zeny Lam APRN.CNP - 09/09/2024 7:27 AM EDT PDMP website checked and validated. All prescriptions have been APPROPRIATELY filled. No suspiciousactivity was identified. 09/09/2024 by Zeny Lam APRN.CNP [facility]06-06-2025 Miscellaneous Notes* Telephone Encounter - Zeny Lam [...] to 180 days. Patient is changing to [facility] pharmacy since [facility] app[facility] is closing October 02. Tala Torres LPN September 08, 2024 11:27 AM documented in this encounterSelect [facility]-2025 Telephone encounter Note * Telephone Encounter - [...] to 180 days. Patient is changing to [facility] since [facility] app[facility] is closing October 02. Tala Torres LPN September 08, 2024 11:27 AM [facility]06-04-2025 Telephone encounter Note* Telephone Encounter - Gabby Rm LPN - 09/07/2024 10:45 AM EDT PATIENT NOTIFIED OF SAME. Tracker updated. [facility]06-04-2025 Miscellaneous Notes* Telephone Encounter - Gabby Rm [...] orders. Graciela Parker RN documented in this encounterSelect [facility]-2025 Telephone encounter Note * Telephone Encounter - Zeny Lam APRN.CNP - 09/07/2024 10:42 AM EDT Okay to do the next INR on 09/21/2024, I would recommend he stop taking the 10 mg dose and stick with 5 mg alternating with 7.5 mg since last 2 INRs have been a little higher. [facility]06-04[facility]20[facility] Telephone encounter Note* Telephone Encounter - Graciela [...] with any other orders. Graciela Parker RN [facility]06-02-2025 Telephone encounter Note* Telephone Encounter - Zeny Lam APRN.CNP - 09/05/2024 2:53 PM EDT PDMP website checked and validated. All prescriptions have been APPROPRIATELY filled. No suspiciousactivity was identified. 09/05/2024 by Zeny Lam APRN.CNP [facility]06-02-2025 Miscellaneous Notes* Telephone Encounter - Zeny Lam [...] 05, 2024 2:38 PM documented in this encounterSelect [facility] Telephone encounter Note * Telephone Encounter - [...] Rm LPN September 05, 2024 2:38 PM [facility]06-02-2025 Telephone encounter Note* Telephone Encounter - Tammie [...] Munguia RN September 05, 2024 12:53 PM [facility]06-02-2025 Miscellaneous Notes* Telephone Encounter - Tammie Munguia [...] 05, 2024 12:53 PM documented in this encounterSelect [facility] Telephone encounter Note * Telephone Encounter - Zeny Lam APRN.CNP - 08/22/2024 9:34 AM EDT Kamlesh noted, if he wants to wait that is okay. [facility]05-19-2025 Miscellaneous Notes* Telephone Encounter - Zeny Lam APRN.CNP - 08/22/2024 9:34 AM EDT Okay noted, if he wants to wait that is okay. * Telephone Encounter - Alvin He RN - 08/19/2024 1:05 PM EDT Pt phoned back to tell Zeny shabazz message below. He spoke with [employer] and figured it out. Pt states [...] via MC or telephone. documented in this encounterSelect [facility] Telephone encounter Note * Telephone Encounter - Alvin He RN - 08/19/2024 1:05 PM EDT Pt phoned back to tell Zeny disregard message below. He spoke with [employer] and figured it out. Pt states he wants to wait a few weeks to get the CT done, unless you think he should do it sooner.States he wants to see if there's another cause, possibly allergies. [facility]-16-2025 Telephone encounter Note* Telephone Encounter - Alvin He RN - 08/19/2024 10:48 AM EDT Patient phoned to ask Zeny, does the CT chest W IVCON use high or low dose. Pt states you can replyto him via MC or telephone. [facility] History of Present illness Narrative* Zeny Lam [...] Consulting (Hematology/Oncology) Mj Dos Santos MD as Epic Cupid Analyst (Cardiology) Medical/Family history review Reviewed and updated [...] is on Coumadin and notes that the knurling machine operator was aware of this. During the visit, the knurling machine operator attempted to trim a difficult toenail on [...] also mentions a recent conversation with a knurling machine operator who advised him to use gauze. Rich [...] Endarterectomy - 06/10/2019 Colonic Polyp - 11/29/2018 Parts Puller (Current) Use of Anticoagulants - 09/15/2018 Recurrent [...] and medications.. MICHI Navarro documented in this encounterSelect [facility] Instructions* Patient Instructions* Zeny Lam APRN.CNP - [...] review all the medicines you take, even keis-kps-yobbvwn medicines. As you get older, the way [...] have certain medical conditions. documented in this encounterSelect [facility]2025 NoteDate of Procedure 08/11/2024. Sloop Captain Information Oracle Database Analyst: Patience Gonzales Start time: 9:48 AM. Stop time: 9:52 AM. OCT Macula Interpretation Right Eye Findings include Epiretinal membrane, RPE Irregularity, Vitelliform lesion; Negative for Intraretinal fluid. Left Eye Abnormal foveal contour. Findings include Negative for Intraretinal fluid, Subretinal fluid. Interval Change Right Eye Worse. Left Eye Stable.[id number] History of Present illness Narrative* Kvng Magaña [...] of its relevant components. documented in this encounterSelect [facility] Telephone encounter Note * Telephone Encounter - Gabby Rm LPN - 08/10/2024 4:04 PM EDT PATIENT NOTIFIED OF SAME. [facility]05-07-2025 Miscellaneous Notes* Telephone Encounter - Gabby Rm [...] 08/24/24 at 11 am. documented in this encounterSelect [facility] Telephone encounter Note * Telephone Encounter - Zeny Lam APRN.CNP - 08/10/2024 12:45 PM EDT Noted and agree, continue current dose and repeat INR as planned. [facility]-07-2025 Telephone encounter Note* Telephone Encounter - Alvin [...] recheck INR on 08/24/24 at 11 am. [facility]-07-2025 Progress note* Result Encounter Note - Zeny Lam APRN.CNP - 08/10/2024 12:08 PM EDT Plan to go over result at up coming follow up appointment. [facility]-07-2025 Miscellaneous Notes* Result Encounter Note - Zeny Lam APRN.CNP - 08/10/2024 12:08 PM EDT Plan to go over result at up coming follow up appointment. documented in this encounterSelect [facility]2025 NoteHNO ID: [id number] Author: WALT YANG R Ac Service: ? [...] reducing alcohol intake. He was living in [facility] since he was born and moved to [place] for job-related which he regret as business environment and living was not the same. About 10 year ago, he moved to [place] and that was when he started experiencing exacerbation of all the condition. 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 Patient agrees that e (more content not included)...[facility] [id number] History of Present illness Narrative* Walt Yang [...] reducing alcohol intake. He was living in [facility] since he was born and moved to [place] for job-related which he regret as business environmentand living was not the same. About 10 year ago, he moved to [place] and that was when he started experiencing exacerbation of all the condition. 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 documented in this encounterSelect [facility] History of Present illness Narrative* Sunny Mercedes MD - 08/08/2024 1:00 PM EDT Images from the original note were not included. [facility]ARDIOLOGY Cardiology ([facility]) [address] [id number] OUTPATIENT VISIT DATE 08/08/2024 PRIMARY CARE PHYSICIAN: Zeny Lam [address] [place] [address] HISTORY OF PRESENT ILLNESS: Mr. Brooks is [...] to knees, as of 2008 --- in [place], neurologist thought related to alcohol; Has had [...] Coumadin Sunny Mercedes MD documented in this encounterSelect [facility] Telephone encounter Note * Telephone Encounter - Tonie Mai RN - 08/06/2024 4:28 PM EDT Patient calling regarding bleeding after toe nail trim on 07/28/24 . Conferenced to [employer] [place] toll booth operator, Анна, to speak with provider digital solutions architect for Podiatry. [facility]-03-2025 Miscellaneous Notes* Telephone Encounter - Tonie Mai RN - 08/06/2024 4:28 PM EDT Patient calling regarding bleeding after toe nail trim on 07/28/24 . Conferenced to [employer] [place] toll booth operator, Анна, to speak with provider digital solutions architect for Podiatry. documented in this encounterSelect [facility] Procedure note* Mariana Barbosa RRT - 08/04/2024 [...] DATE: August 04, 2024 TIME: 12:34 PM [facility]-01-2025 Procedure note* Mariana Barbosa RRT - 08/04/2024 [...] 2024 TIME: 12:34 PM documented in this encounterSelect [facility]2025 Telephone encounter Note * Telephone Encounter - Gabby Rm LPN - 07/27/2024 1:57 PM EDT PATIENT NOTIFIED OF SAME. [facility]04-23-2025 Miscellaneous Notes* Telephone Encounter - Gabby Rm [...] 2 weeks on 08/10/24 documented in this encounterSelect Medical [facility]-2025 Telephone encounter Note * Telephone Encounter - Zeny Lam APRN.CNP - 07/27/2024 1:02 PM EDT Noted and okay to continue current dose and check INR as he plans in 2 weeks. [facility]-23-2025 Telephone encounter Note* Telephone Encounter - Alvin [...] recheck INR in 2 weeks on 08/10/24 [facility]-22-2025 NoteHNO ID: [id number] Author: WALT YANG R Ac Service: ? [...] reducing alcohol intake. He was living in [facility] since he was born and moved to [place] for job-related which he regret as business environment and living was not the same. About 10 year ago, he moved to [place] and that was when he started experiencing exacerbation of all the condition. 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 Patient agrees that either: 1. A diagnostic exam has been performed by a physician or chiroprac (more content not included)...[facility] [id number] History of Present illness Narrative* Walt Yang [...] reducing alcohol intake. He was living in [facility] since he was born and moved to [place] for job-related which he regret as business environmentand living was not the same. About 10 year ago, he moved to [place] and that was when he started experiencing exacerbation of all the condition. 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 documented in this encounterSelect [facility] History of Present illness Narrative* Zeny Lam APRN.INFO SPECIALIST - 07/25/2024 11:16 AM EDT SUBJECTIVE Alex [...] Endarterectomy - 06/10/2019 Colonic Polyp - 11/29/2018 Parts Puller (Current) Use of Anticoagulants - 09/15/2018 Recurrent [...] appointment.. Zeny Lam APRN-KAYLA documented in this encounterSelect [facility] Telephone encounter Note * Telephone Encounter - Zeny Lam APRN.CNP - 07/18/2024 3:01 PM EDT See my chart message. [facility]04-14-2025 Miscellaneous Notes* Telephone Encounter - Zeny Lam APRN.CNP - 07/18/2024 3:01 PM EDT See my chart message. * Telephone Encounter - Tala Torres LPN - 07/18/2024 9:21 AM EDT Patient calling back he has appt in [place] on 07/26 so cancelled appt with Zney and made another onefor 07/25 at 1120 [...] 140 pm to discuss stress test results. [facility] notifying pt to contact us if that [...] medication until hesees Zeny? documented in this encounterSelect [facility]-2025 Telephone encounter Note * Telephone Encounter - [...] clears his shortness of breath? Please advise [facility]04-14-2025 Telephone encounter Note* Telephone Encounter - Ramila [...] to hold the medication until hesees Zeny? 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 36 mCi [id number]-Joenouc was administered IV for Stress Imaging at 08:45 by . PATIENT DISCHARGED TO: Ambulatory patient, left [place] department area. Is this a therapy: No A Diagnostic radioactive procedure has taken place, with no further precautions necessary other than routine body substance precautions. More information regarding radiation safety can be found usingthis link: [email or web address] SIGNATURE: RT Lion(Jose J) PATIENT NAME: Alex Brooks DATE: July 18, 2024 TIME: 12:00 PM PAGER/CONTACT #: documented in this encounterSelect [facility]20[facility] Telephone encounter Note * Telephone Encounter - Cyndy Whelan RN - 07/13/2024 5:28 PM EDT Pt called and is notified of providers message and instructions. Pt voices understanding. Updated Anticoag tracker. Cyndy Whelan RN [facility]04-09-2025 Miscellaneous Notes* Telephone Encounter - Cyndy Whelan [...] No antibiotics No missed documented in this encounterSelect [facility]-2025 Telephone encounter Note * Telephone Encounter - Zeny Lam APRN.CNP - 07/13/2024 1:19 PM EDT Continue current dose and ok for check on 07/27. [facility]04-09-2025 Telephone encounter Note* Telephone Encounter - Tammie [...] change in diet No antibiotics No missed [facility]04-03-2025 Telephone encounter Note* Telephone Encounter - Alvin [...] urgent you can contact him next week. [facility]-03-2025 Miscellaneous Notes* Telephone Encounter - Alvin He [...] contact him next week. documented in this encounterSelect [facility]-28-2025 Telephone encounter Note * Telephone Encounter - Tammy Wang MA - 07/01/2024 2:16 PM EDT Pharmacy request denied. Patient needs to contact office for refills. Tammy Wang MA [facility]03-28-2025 Miscellaneous Notes* Telephone Encounter - Tammy Wang MA - 07/01/2024 2:16 PM EDT Pharmacy request denied. Patient needs to contact office for refills. Tammy Wang MA documented in this encounterSelect [facility]2025 Telephone encounter Note * Telephone Encounter - Gabby Rm LPN - 06/29/2024 2:53 PM EDT PATIENT NOTIFIED OF SAME. [facility]03-26-2025 Miscellaneous Notes* Telephone Encounter - Gabby Rm [...] unusual bleeding or bruising. documented in this encounterSelect [facility]-2025 Telephone encounter Note * Telephone Encounter - Zeny Lam APRN.CNP - 06/29/2024 12:53 PM EDT Continue with the current dose and repeat INR in 3 weeks. Thanks. Zeny Lam APRN.CNP [facility]03-26-2025 Telephone encounter Note* Telephone Encounter - Antoinette [...] note of this now. Antoinette Meadows RN [facility]03-26-2025 Miscellaneous Notes* Telephone Encounter - Antoinette Meadows [...] now. Antoinette Meadows RN documented in this encounterSelect [facility]-2025 Telephone encounter Note * Telephone Encounter - [...] white wine, no unusual bleeding or bruising. [facility]03-22-2025 Telephone encounter Note* Telephone Encounter - Gabby [...] Rm LPN June 25, 2024 8:47 AM [facility]-22-2025 Miscellaneous Notes* Telephone Encounter - Gabby Rm [...] 25, 2024 8:47 AM documented in this encounterSelect Medical [facility]-18-2025 Telephone encounter Note * Telephone Encounter - Ellen Coffman LPN - 06/21/2024 9:19 AM EDT Returned patients call offered patient billing number. Patient states he already has number. Informed patient that we are unable to perform nail care as nurse visit. Patient verbalized understanding and will call billing. Ellen Coffman LPN [facility] Work Phone: [phone]) 211-129703-18-2025 Miscellaneous Notes* Telephone Encounter - Ellen Coffman [...] him. Hilaria Harp LPN documented in this encounterSelect Medical [facility]-17-2025 Telephone encounter Note * Telephone Encounter - Gabby Rm LPN - 06/20/2024 2:47 PM EDT PATIENT NOTIFIED OF SAME. [facility]03-17-2025 Miscellaneous Notes* Telephone Encounter - Gabby Rm [...] He states when he saw Oncology at [facility] they do not order those after the age of 78. Hilaria Harp LPN documented in this encounterSelect Medical [facility]-17-2025 Telephone encounter Note * Telephone Encounter - Zeny Lam APRN.CNP - 06/20/2024 12:37 PM EDT We can discuss the PSA testing in more depth with his follow up but at this time I would not recommend adding it to his upcoming labs. [facility]-17-2025 Telephone encounter Note* Telephone Encounter - Hilaria Harp LPN - 06/20/2024 11:01 AM EDT Patient called in and wondered if he should have a PSA added to his upcoming labs to be completed. He states when he saw Oncology at [facility] they do not order those after the age of 78. Hilaria Harp LPN [facility]03-17-2025 Telephone encounter Note* Telephone Encounter - Hilaria [...] upcoming appt with him. Hilaria Harp LPN [facility]03-13-2025 Progress note* Result Encounter Note - Bonnie Sharif APRN.CNS - 06/16/2024 8:12 AM EDT magnesium within normal limits [facility] Work Phone: [phone]) 383-979503-13-2025 Miscellaneous Notes* Result Encounter Note - Bonnie Sharif APRN.CNS - 06/16/2024 8:12 AM EDT magnesium within normal limits documented in this encounterSelect Medical [facility]03-12-2025 Telephone encounter Note * Telephone Encounter - Zeny Lam APRN.CNP - 06/15/2024 2:29 PM EDT See my chart reply [facility]-12-2025 Miscellaneous Notes* Telephone Encounter - Zeny Lam [...] MyChart or Phone call. documented in this encounterSelect Medical [facility]-12-2025 Telephone encounter Note * Telephone Encounter - [...] below for anti coag Antoinette Meadows RN [facility]03-12-2025 Telephone encounter Note* Telephone Encounter - Alvin [...] advise him via MyChart or Phone call. [facility]03-05-2025 Miscellaneous Notes* Telephone Encounter - Gabby Rm [...] 08, 2024 4:17 PM documented in this encounterSelect [facility]-2025 Telephone encounter Note * Telephone Encounter - [...] Rm LPN June 08, 2024 4:17 PM [facility]2025 History of Present illness Narrative* Zeny Lam APRN.INFO SPECIALIST - 06/08/2024 3:14 PM EST SUBJECTIVE Alex Brooks is a 78 year old male here today for a check up on his medical problems. Chief Complaint Patient presents with: Recheck: update of current condition SOB with stress test 07/18/24 HPI Alex Brooks is a 78 year old male. He presents today for recheck. He was seen 05/17 with [facility] for shortness of breath. Continues to have [...] told this was okay. Seeing the eye [facility]. Blood pressure has been controlled. [...] Endarterectomy - 06/10/2019 Colonic Polyp - 11/29/2018 Group Home (Current) Use of Anticoagulants - 09/15/2018 Recurrent [...] Vision abnormalities - ICD9: 368.9, ICD10: H53.9 [facility] appointment coming up. Portions of this note [...] appointment.. Zeny Lam APRN-KAYLA documented in this encounterSelect [facility]2025 Telephone encounter Note * Telephone Encounter - [...] Rm LPN June 08, 2024 9:10 AM [facility]-05-2025 Miscellaneous Notes* Telephone Encounter - Gabby Rm [...] 08, 2024 9:10 AM documented in this encounterSelect [facility]-2025 Telephone encounter Note * Telephone Encounter - [...] Rm LPN June 08, 2024 9:09 AM [facility]-05-2025 Miscellaneous Notes* Telephone Encounter - Gabby Rm [...] 08, 2024 9:09 AM documented in this encounterSelect [facility]-2025 Telephone encounter Note * Telephone Encounter - Zeny Lam APRN.CNP - 06/06/2024 12:31 PM EST Noted, we will address acute concerns with the visit. [facility]03-03-2025 Miscellaneous Notes* Telephone Encounter - Zeny Lam [...] with his retinal surgeon [facility] at [facility] but that isn't until August. I told [...] of time before appointment. documented in this encounterSelect [facility]03-[facility]-2025 Telephone encounter Note * Telephone Encounter - [...] with his retinal surgeon up at the [facility] but that isn't until August. I told [...] know a head of time before appointment. [facility]02-28-2025 Telephone encounter Note* Telephone Encounter - Maribel Oden LPN - 06/03/2024 8:39 AM EST Spoke with pt and information listed below given. Pt verbalizes understanding. Maribel Oden LPN [facility]02-28-2025 Miscellaneous Notes* Telephone Encounter - Maribel Oden [...] pt. Maribel Oden LPN documented in this encounterSelect Medical Special[facility]02-27-2025 Telephone encounter Note * Telephone Encounter - [...] test to evaluate his degree of SOB. [facility]27-2025 Telephone encounter Note* Telephone Encounter - Cyndy Whelan RN - 06/02/2024 12:57 PM EST Pt called and is notified of providers results and instructions. Pt voices understanding. Updated Anticoag tracker. Pt wanted to let provider know that she had told him to reduce his Magnesium for diarrhea and that helped. Cyndy Whelan RN [facility]02-27-2025 Miscellaneous Notes* Telephone Encounter - Cyndy Whelan [...] 4 days before testing. documented in this encounterSelect [facility]02-27-2025 Telephone encounter Note * Telephone Encounter - Bonnie Sharif APRN.CNS - 06/02/2024 11:25 AM EST Continue with Coumadin dose unchanged and check INR in 2 weeks. [facility] Work Phone: [phone]) 200-273402-26-2025 Telephone encounter Note* Telephone Encounter - Cyndy [...] but it was 4 days before testing. [facility]02-24-2025 Telephone encounter Note* Telephone Encounter - Maribel [...] ? Please advise pt. Maribel Oden LPN [facility]02-18-2025 History of Present illness Narrative* Jaycob Edgar David, DO - 05/24/2024 11:51 AM EST Images from the original note were not included. [facility] [place] DEPARTMENT OF VASCULAR SURGERY OUTPATIENT VISIT DATE May 24, 2024 OUTPATIENT VISIT TYPE ESTABLISHED SERVICE DATE: 05/24/2024 SERVICE TIME: 11:51 AM PRIMARY CARE PHYSICIAN: Zeny Lam APRN.INFO SPECIALIST HISTORY OF PRESENT ILLNESS: Mr. Brooks is [...] to knees, as of 2008 --- in [place], neurologist thought related to alcohol; Has had [...] 2024 TIME: 11:51 AM documented in this encounterSelect [facility] History of Present illness Narrative* Gayle Green [...] 10/15/2017 5.5 04/14/2017 5.6 10/23/2011 5.7 HBA1C, [place] (%) Date Value 07/24/2011 5.8 08/24/2009 6.3 Hemoglobin A1C (POCT) (%) Date Value 03/22/2021 5.1 PCP: Zeny Genaro, VINYL CUTTER.INFO SPECIALIST PAST MEDICAL HISTORY Diagnosis Date Asthma as [...] to knees, as of 2008 --- in [place], neurologist thought related to alcohol; Has had [...] to digits Non-Invasive Vascular Laboratory [facility] Lower Extremity Arterial Physiology Study Bilateral/Complete Date [...] foot (I73.9) PAD (peripheral artery disease) ([facility]) (M20.40) Hammer toe, unspecified laterality PLAN: 1. [...] Green DPM Podiatry [address] [place] [address] Dept: [phone] Dept * Ellen Coffman LPN - 05/19/2024 [...] care Ellen Coffman LPN documented in this encounterSelect [facility] Telephone encounter Note * Telephone Encounter - Cyndy Whelan RN - 05/18/2024 6:32 PM EST Pt called and is notified of providers results and instructions. Pt voices understanding. Updated Anticoag tracker. Cyndy Whelan RN [facility]02-12-2025 Miscellaneous Notes* Telephone Encounter - Cyndy Whelan [...] for next INR testing. documented in this encounterSelect [facility]-2025 Telephone encounter Note * Telephone Encounter - Mani Edwards MD - 05/18/2024 6:23 PM EST No change Recheck in 2 weeks to verify stable on same dose as usual after the 10 mg dose given 05/10 [facility]02-12-2025 Telephone encounter Note* Telephone Encounter - Tammie [...] in 2 weeks for next INR testing. [facility]02-11-2025 History of Present illness Narrative* Teri Gruber APRN.INFO SPECIALIST - 05/17/2024 2:09 PM EST Chief Complaint [...] to knees, as of 2008 --- in [place], neurologist thought related to alcohol; Has had [...] OXYCODONE-ACETAMINOPHEN 7.5 MG-325 MG TABLET Teri Gruber APRN.INFO SPECIALIST documented in this encounterSelect [facility]-2025 Telephone encounter Note * Telephone Encounter - Tammie Munguia RN - 05/11/2024 3:16 PM EST Patient calls back and states that he talked to [facility] and patient is eligible for Covid Vaccine.[facility] to get vaccine. Provider does not have to adviseon this anymore. Tammie Munguia RN [facility]02-05-2025 Miscellaneous Notes* Telephone Encounter - Tammie Munguia RN - 05/11/2024 3:16 PM EST Patient calls back and states that he talked to [facility] and patient is eligible for Covid Vaccine.Patient report that [facility] to get vaccine. Provider does not have to adviseon this anymore. Tammie Munguia RN * Telephone Encounter - Maribel Oden LPN - 05/11/2024 1:57 PM EST Pt called to see if he is due for a COVID vaccine. Please advise pt. Maribel Oden LPN documented in this encounterSelect [facility]25 Telephone encounter Note * Telephone Encounter - Maribel Oden LPN - 05/11/2024 1:57 PM EST Pt called to see if he is due for a COVID vaccine. Please advise pt. Maribel Oden LPN [facility]02-04-2025 Telephone encounter Note* Telephone Encounter - Haydee Lee LPN - 05/10/2024 2:21 PM EST Patient notified of providers message and verbalized understanding. [facility]02-04-2025 Miscellaneous Notes* Telephone Encounter - Haydee Lee [...] is scheduled for 05/18/2024. documented in this encounterSelect [facility]-2025 Telephone encounter Note * Telephone Encounter - Bonnie Sharif APRN.CNS - 05/10/2024 2:08 PM EST He can take coumadin 10 mg today then resume usual dosing. [facility] Work Phone: [phone]) 124-599502-04-2025 Telephone encounter Note* Telephone Encounter - Haydee Lee LPN - 05/10/2024 1:26 PM EST Spoke with patient. Patient is concerned about instructions. Patient is scheduled to take 7.5 mg tonight so schedule is not changing and believes 1.6 is too low for him, believe there should be a change. Please advise [facility]02-04-2025 Telephone encounter Note* Telephone Encounter - Bonnie [...] 2.3 (H) 1.6 (H) Legend: (H) High [facility]02-04-2025 Telephone encounter Note* Telephone Encounter - Tammie [...] a week. Patient is scheduled for 05/18/2024. [facility]01-22-2025 Telephone encounter Note* Telephone Encounter - Sherry Rodrigues MD - 04/27/2024 6:04 PM EST Noted. Agree with current dose and repeat in 2 weeks Regards, Sherry Rodrigues MD [facility] Work Phone: 1(510) 539-615201-22-2025 Miscellaneous Notes* Telephone Encounter - Sherry Rodrigues [...] Information or narrative: no documented in this encounterSelect [facility]-2025 Telephone encounter Note * Telephone Encounter - [...] 2.4 Additional Clinical Information or narrative: no [facility]01-07-2025 Telephone encounter Note* Telephone Encounter - Bonnie Shairf APRN.CNS - 04/12/2024 3:30 PM EST ok [facility]01-07-2025 Miscellaneous Notes* Telephone Encounter - Bonnie Sharif [...] INR in 2 weeks. documented in this encounterSelect [facility]-2025 Telephone encounter Note * Telephone Encounter - Gabby Rm LPN - 04/12/2024 1:30 PM EST PATIENT NOTIFIED OF SAME. Patient stopped OTC magnesium about 2-3 weeks ago. It was suggested to stopped it due to symptoms of diarrhea. Within 2 days of stopping diarrhea improved. Would like a magnesium level check at next INR drawn. [facility]01-07-2025 Telephone encounter Note* Telephone Encounter - Bonnie Sharif APRN.CNS - 04/12/2024 12:41 PM EST Continue with Coumadin dose unchanged check INR in 2 weeks [facility]01-07-2025 Telephone encounter Note* Telephone Encounter - Tammie [...] his appointment for INR in 2 weeks. [facility]12-20-2024 Telephone encounter Note* Telephone Encounter - Graciela Parker RN - 03/25/2024 1:45 PM EST Patient calling with medication related question. Information reviewed. Graciela Parker RN [facility]12-20-2024 Miscellaneous Notes* Telephone Encounter - Graciela Parker RN - 03/25/2024 1:45 PM EST Patient calling with medication related question. Information reviewed. Graciela Parker RN documented in this encounterSelect [facility]24 Miscellaneous Notes* Telephone Encounter - Osei Maciel [...] disability placard Please advise documented in this encounterSelect [facility]-2024 Telephone encounter Note * Telephone Encounter - Osei Maciel LPN - 03/25/2024 11:01 AM EST Letter ready to be mailed, patient aware. Osei Maciel LPN [facility]12-20-2024 Telephone encounter Note* Telephone Encounter - Gbaby Rm LPN - 03/25/2024 9:09 AM EST Letter printed and at nurse pod for signature. [facility]12-19-2024 Telephone encounter Note* Telephone Encounter - Mani Edwards MD - 03/24/2024 5:49 PM EST Print parking placard letter for me--cannot change from Zeny Lam on the letterhead. For cannot walk without stopping to rest and condition orthopedic. Permanent for 10 years [facility]12-19-2024 Telephone encounter Note* Telephone Encounter - Tala Torres LPN - 03/24/2024 4:11 PM EST Patient returned call and went over notes below from Nahomi Sharif BREAKDOWN MILL OPERATOR with understanding. [facility]12-19-2024 Miscellaneous Notes* Telephone Encounter - Tala Torres LPN - 03/24/2024 4:11 PM EST Patient returned call and went over notes below from aNhomi Sharif BREAKDOWN MILL OPERATOR with understanding. * Telephone Encounter - Ramila [...] advise, Tammie Munguia RN documented in this encounterSelect [facility]12-19-2024 Telephone encounter Note * Telephone Encounter - Ramila Anand RN - 03/24/2024 3:58 PM EST Called and left a voicemail for the patient to call back and ask for a nurse to receive the providers message. [facility]12-19-2024 Telephone encounter Note* Telephone Encounter - Bonnie Sharif APRN.SHANA - 03/24/2024 3:29 PM EST Both olmesartan and nifedipine have low incidence of diarrhea (1-3%). I recommend try reducing his supplemental OTC magnesium to see if this helps. He should note improvement in a few days. If not I would recommend a visit to check diarrhea and BP and make medication adjustments if needed. [facility] Work Phone: 1(678) 103-792012-19-2024 Telephone encounter Note* Telephone Encounter - Haydee [...] pressure today was 116/67 and pulse 64. [facility]12-19-2024 Telephone encounter Note* Telephone Encounter - Bonnie Sharif APRN.CNS - 03/24/2024 2:20 PM EST This is not a listed side effect of clonidine. Did anything else change in that time period? Has heincreased his use of magnesium? [facility]12-19-2024 Telephone encounter Note* Telephone Encounter - Haydee Lee LPN - 03/24/2024 2:12 PM EST Patient notified of providers message and verbalized understanding. [facility]12-19-2024 Miscellaneous Notes* Telephone Encounter - Haydee Lee LPN - 03/24/2024 2:12 PM EST Patient notified of providers message and verbalized understanding. * Telephone Encounter - Bonnie Sharif APRN.SMALL ARMS REPAIRER - 03/24/2024 1:44 PM EST This was sent to me from [facility]. May continue on with Coumadin dose unchanged [...] Patient requesting note to be sent to [facility] to review. documented in this encounterSelect [facility]-2024 Telephone encounter Note * Telephone Encounter - Bonnie Shraif APRN.SMALL ARMS REPAIRER - 03/24/2024 1:44 PM EST This was sent to me from [facility]. May continue on with Coumadin dose unchanged and check INR in 2 weeks [facility] Work Phone: [phone] 135-292712-19-2024 Telephone encounter Note* Telephone Encounter - Tala [...] Patient requesting note to be sent to [facility] to review. [facility]12-19-2024 Telephone encounter Note* Telephone Encounter - Mirlande Maria MA - 03/24/2024 11:08 AM EST Patient is at [facility] to get INR draw but order on file . Please file pended order. Labdoes not need notified. Mirlande Maria MA [facility]12-19-2024 Miscellaneous Notes* Telephone Encounter - Mirlande Maria MA - 03/24/2024 11:08 AM EST Patient is at [facility] to get INR draw but order on file . Please file pended order. Labdoes not need notified. Mirlande Maria MA documented in this encounterSelect [facility]12-18-2024 Telephone encounter Note * Telephone Encounter - Tammie Munguia RN - 03/23/2024 4:31 PM EST Patient calls back and is asking if handicap placard paper work can be mailed out to him. Address verified. Patient states that he has a hard time walking distances. Tammie Munguia RN [facility]12-17-2024 Telephone encounter Note* Telephone Encounter - Corrina Whipple - 03/22/2024 1:50 PM EST Patient called requesting paper work for the renewal of the disability placard Please advise [facility] Work Phone: [phone] 344-593112-17-2024 Telephone encounter Note* Telephone Encounter - Tammie [...] Please review and advise, Tammie Munguia RN [facility]12-11-2024 Telephone encounter Note* Telephone Encounter - Kari [...] Please advise. Thank you. Kari Briones LPN. [facility]12-11-2024 Miscellaneous Notes* Telephone Encounter - Kari Briones [...] you. Kari Briones LPN. documented in this encounterSelect [facility]12-06-2024 Telephone encounter Note * Telephone Encounter - Tammie Munguia RN - 03/11/2024 9:20 AM EST Patient notified of results and provider's instructions. Patient verbalizes understanding. Tammie Munguia RN [facility]12-06-2024 Miscellaneous Notes* Telephone Encounter - Tammie Munguia [...] INR in 2 weeks. documented in this encounterSelect [facility]12-06-2024 Telephone encounter Note * Telephone Encounter - Arti Baxter APRN.CNP - 03/11/2024 9:06 AM EST If inr range is 2-3 then she is in therapeutic range and should continue current dose. Ok to recheck in 2 weeks as already scheduled. Thank you Arti Baxter APRN.CNP [facility] Work Phone: [phone] 414-851412-05-2024 Telephone encounter Note* Telephone Encounter - Tammie [...] appointment to recheck INR in 2 weeks. [facility]12-04-2024 Telephone encounter Note* Telephone Encounter - Mani Edwards MD - 03/09/2024 9:24 AM EST The following approved medication requests have been transmitted electronically. Requested Prescriptions Signed Prescriptions Disp Refills LORazepam (ATIVAN) 2 mg tab 90 tablet 1 Sig: Take 1 tablet by mouth at bedtime as needed (insomnia) for up to 180 days. Authorizing Provider: MANI EDWARDS MD [facility]12-04-2024 Miscellaneous Notes* Telephone Encounter - Mani Edwards [...] 08, 2024 10:32 AM documented in this encounterSelect [facility]12-[facility]-2024 Telephone encounter Note * Telephone Encounter - [...] Rm LPN March 08, 2024 10:32 AM [facility]11-25-2024 History of Present illness Narrative* Emerald Valera [...] PATIENT PRESENTS WITH AN IMPLANTABLE OR ATTACHED SHEETER MACHINE OPERATOR: No RADIOLOGY DEPARTMENT: CT; Exam(s) Completed: Brain PERIPHERAL IV DATA: Not applicable SIGNED BY: RT Poli(Jose J) February 29, 2024 12:06 PM documented in this encounterSelect [facility]11-21-2024 Telephone encounter Note * Telephone Encounter - Antoinette Meadows RN - 02/25/2024 3:20 PM EST Patient returns call to let office know that he received the message. Antoinette Meadows RN [facility]11-21-2024 Miscellaneous Notes* Telephone Encounter - Antoinette Maedows RN - 02/25/2024 3:20 PM EST Patient [...] no changes or problems documented in this encounterSelect Medical [facility]11-21-2024 Telephone encounter Note * Telephone Encounter - Ludmila Carson MA - 02/25/2024 2:34 PM EST Placed call to patient with no answer. Left VM with detailed instruction to continue same dose of coumadin and recheck inr in two weeks. Advised patient to call back and let us know he received the message. Ludmila Carson MA [facility]11-21-2024 Telephone encounter Note* Telephone Encounter - Alex Bernal MD - 02/25/2024 2:04 PM EST Same dose. Recheck in two weeks [facility] Work Phone: [phone] 213-770711-21-2024 Telephone encounter Note* Telephone Encounter - Ramila Anand RN - 02/25/2024 12:53 PM EST Last INR: INR Home CoaguChek 2.9 02/25/2024 Current dose of coumadin is: 7.5 mg alternating with 5 mg every other day. Last date of dose change: unknown. Previous INR (date and result): 02/08 2.5 Additional Clinical Information or narrative: no changes or problems [facility]11-11-2024 Telephone encounter Note* Telephone Encounter - Molly Ann RN - 02/15/2024 5:10 PM EST [facility] calling to request clarification on Warfarin script. Pharmacist says they need toknow maximum dose per day to know how long 240 tablets should last. Please review and advise. MORIAH Leiva RN [facility]11-11-2024 Miscellaneous Notes* Telephone Encounter - Molly Ann RN - 02/15/2024 5:10 PM EST [facility] calling to request clarification on Warfarin script. Pharmacist says they need toknow maximum dose per day to know how long 240 tablets should last. Please review and advise. MORIAH Leiva RN documented in this encounterSelect Medical [facility]11-11-2024 History of Present illness Narrative* Zeny Lam APRN.INFO SPECIALIST - 02/15/2024 2:32 PM EST SUBJECTIVE Alex [...] LIST Compression Fracture of L1 Lumbar Vertebra ([facility]) - 07/15/2023 Sciatic Leg Pain - 07/15/2023 Bilateral Carotid Artery Stenosis - 06/15/2023 Acute Gastritis Without Hemorrhage - 04/20/2023 Spinal Stenosis of Lumbar Region - 09/24/2022 Pad (Peripheral Artery Disease) (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 02/15/2024 by Zeny Lam APRN.INFO SPECIALIST Portions of this note have been entered [...] medications.. Zeny Lam APRN-KAYLA documented in this encounterSelect Medical [facility]11-11-2024 Telephone encounter Note * Telephone Encounter - Osei Maciel LPN - 02/15/2024 9:19 AM EST Patient has OV this afternoon and can discuss medication needs at that time. Patient updated vis MyChart. Osei Maciel LPN [facility]11-11-2024 Miscellaneous Notes* Telephone Encounter - Osei Maciel LPN - 02/15/2024 9:19 AM EST Patient has OV this afternoon and can discuss medication needs at that time. Patient updated vis MyChart. Osei Maciel LPN documented in this encounterSelect [facility]11-05-2024 Telephone encounter Note * Telephone Encounter - Gabby Rm LPN - 02/09/2024 3:18 PM EST PATIENT NOTIFIED OF SAME. Appt rescheduled for 02/15/24. [facility]11-05-2024 Miscellaneous Notes* Telephone Encounter - Gabby Rm [...] co-pay). Jose J Luevano documented in this encounterSelect Medical Specialty [facility]11-05-2024 Telephone encounter Note * Telephone Encounter - [...] if he would rather discuss this sooner. [facility]11-05-2024 Telephone encounter Note* Telephone Encounter - Antoinette [...] from a $0 co-pay). Jose J Luevano [facility]11-04-2024 Telephone encounter Note* Telephone Encounter - Zeny Lam APRN.CNP - 02/08/2024 12:55 PM EST See other encounter. [facility]11-04-2024 Miscellaneous Notes* Telephone Encounter - Zeny Lam APRN.CNP - 02/08/2024 12:55 PM EST See other encounter. * Telephone Encounter - Brandi Lambert LPN - 02/08/2024 12:02 PM EST Pt is asking what to do about the pain. What can he take or what do you recommend . Brandi Lambert LPN documented in this encounterSelect Medical [facility]11-04-2024 Telephone encounter Note * Telephone Encounter - Brandi Lambert LPN - 02/08/2024 12:02 PM EST Pt is asking what to do about the pain. What can he take or what do you recommend . Brandi Lambert LPN [facility]11-01-2024 Telephone encounter Note* Telephone Encounter - Zeny Lam APRN.CNP - 02/05/2024 3:02 PM EDT See my chart message encounter. [facility]11-01-2024 Miscellaneous Notes* Telephone Encounter - Zeny Lam [...] advise, Tammie Munguia RN documented in this encounterSelect Medical Specialty [facility]10-31-2024 Telephone encounter Note * Telephone Encounter - Tammie Munguia RN - 02/04/2024 9:28 AM EDT Patient calls and states that he has a friend that has a broken back that is worse than what he has. Patient is asking if provider knows of a good neurologist that she would recommend friend to see? Please review and advise, Tammie Munguia RN [facility]10-28-2024 History of Present illness Narrative* Aileen Roland [...] PATIENT PRESENTS WITH AN IMPLANTABLE OR ATTACHED SHEETER MACHINE OPERATOR: No RADIOLOGY DEPARTMENT: General X-ray: Exam(s) Completed: Spine X-Ray(s): Cervical AP / LAT / OBL PERIPHERAL IV DATA: Not applicable SIGNED BY: RT Neisha(R) February 01, 2024 3:02 PM documented in this encounterSelect Medical [facility]10-28-2024 Telephone encounter Note * Telephone Encounter - Cowan, Brandi, STRINGED INSTRUMENT TUNER - 02/01/2024 11:40 AM EDT Pt message in another encounter. Brandi Lambert LPN [facility]10-28-2024 Miscellaneous Notes* Telephone Encounter - Brandi Lambert LPN - 02/01/2024 11:40 AM EDT Pt message in another encounter. Brandi Lambert LPN documented in this encounterSelect Medical [facility]10-28-2024 Telephone encounter Note * Telephone Encounter - [...] provider that he will be done with [facility] on 04/05 so he can get these tests done know for free. Pt also wanted to let provider know that he is not taking Cymbalta because he was having fatigue and anxiety. Since stopping med pt reports those sx have gotten better. Brandi Lambert LPN [facility]10-28-2024 Miscellaneous Notes* Telephone Encounter - Brandi Lambert [...] provider that he will be done with [facility] on 04/05 so he can get these tests done know for free. Pt also wanted to let provider know that he is not taking Cymbalta because he was having fatigue and anxiety. Since stopping med pt reports those sx have gotten better. Brandi Lambert LPN documented in this encounterSelect [facility]-28-2024 Telephone encounter Note * Telephone Encounter - Zeny Lam APRN.CNP - 02/01/2024 7:15 AM EDT Sent. [facility] [facility] [place] Miscellaneous Notes* Telephone Encounter - Zeny Lam [...] agree too, it is not an ideal terminal gauger solution because of needing to take it [...] of Clonidine helps but it's not a snf solution, I believe. Also, the creaking in my neck continues and I'm still getting the staccato like intermittent rushing feeling in my head. Which is very odd. Please let me know what you think. Rich Patient calling asking to make sure his my chart message was sent to Zeny Lam today if possible. documented in [facility] Telephone encounter Note * Telephone Encounter - Gabby Rm LPN - 01/29/2024 4:17 PM EDT PATIENT NOTIFIED OF SAME. Is ok with starting the nifedipine. [facility] [place]10-25-2024 Telephone encounter Note* Telephone Encounter - Zeny [...] agree too, it is not an ideal snf solution because of needing to take it several times a day. I would recommend we start another daily option to better control the bp, would recommend we start nifedipine daily in addition to his olmesartan and then okay to still use the clonidine as needed to bring down bp if having episodes ofelevation. [facility] [place] Telephone encounter Note* Telephone Encounter - Tala Torres LPN - 01/29/2024 2:53 PM EDT Converted to a phone message, closing this. [facility] [place]10-25-2024 Miscellaneous Notes* Telephone Encounter - Tala Torres LPN - 01/29/2024 2:53 PM EDT Converted to a phone message, closing this. documented in this encounterSelect [facility] [place] Telephone encounter Note * Telephone Encounter - [...] of Clonidine helps but it's not a snf solution, I believe. Also, the creaking in my neck continues and I'm still getting the staccato like intermittent rushing feeling in my head. Which is very odd. Please let me know what you think. Rich Patient calling asking to make sure his my chart message was sent to Zeny Lam today if possible. [facility] Telephone encounter Note* Telephone Encounter - Alvin [...] you getting back to him so quickly. [facility] [place]10-24-2024 Miscellaneous Notes* Telephone Encounter - Alvin He [...] to do? Please advise documented in this encounterSelect [facility] [place] Telephone encounter Note * Telephone Encounter - [...] doses by at least 2-3hours before repeating). [facility] [place] Telephone encounter Note* Telephone Encounter - Tala [...] you want him to do? Please advise [facility] [place]-22-[facility]24 Telephone encounter Note* Telephone Encounter - Zeny Lam APRN.CNP - 01/26/2024 4:21 PM EDT Noted, I think those numbers are good, goal is to be less than 140 for SBP and 80 or less for DBP. [facility] [place]10-22-2024 Miscellaneous Notes* Telephone Encounter - Zeny Lam [...] chart. Corrina Velarde LPN documented in this encounterSelect Medical Specialty [facility] [place]24 Telephone encounter Note * Telephone Encounter - [...] BP that is 136/76? Lizz Smith MA [facility] [place]10-22-2024 Telephone encounter Note* Telephone Encounter - Zeny Lam APRN.KAYLA - 01/26/2024 3:36 PM EDT Please let him know INR back and stable at 2.4, continue current dose and okay to repeat INR 2 weeks. I'm glad bp is doing better with the changes we made. [facility] [place]-22-2024 Telephone encounter Note* Telephone Encounter - Corrina [...] wks unless notified differently. Corrina Velarde LPN [facility] [place]10-22-2024 Telephone encounter Note* Telephone Encounter - Corrina [...] added to his chart. Corrina Velarde LPN [facility] [place]10-16-2024 Instructions* Patient Instructions* Zeny Lam APRN.INFO SPECIALIST - 01/20/2024 1:33 PM EDT Switch from [...] a day if needed. documented in this encounterSelect Medical [facility]ty [facility] [place]16[facility] History of Present illness Narrative* Zeny Lam APRN.KAYLA - 01/20/2024 1:12 PM EDT SUBJECTIVE Alex Brooks is a 78 year old male here today for a check up on his medical problems. Chief Complaint Patient presents with: ED Follow-up: lightheadedness, elevated bp [facility] ER 01/08/24 HPI Alex Brooks is a 78 year old male. He is an established patient. He presents today for followup from being seen in the ER at [facility] on 01/08/2024. He had woke up [...] a day. Back Brace (BACK SUPPORT S/M) [facility] as instructed. (Patient not taking: Reported [...] LIST Compression Fracture of L1 Lumbar Vertebra ([facility]) - 07/15/2023 Sciatic Leg Pain - 07/15/2023 Bilateral Carotid Artery Stenosis - 06/15/2023 Acute Gastritis Without Hemorrhage - 04/20/2023 Spinal Stenosis of Lumbar Region - 09/24/2022 Pad (Peripheral Artery Disease) ([facility]) - 08/16/2021 Kidney Insufficiency - 04/04/2021 Posterior Vitreous Detachment of Right Eye - 06/19/2020 Age-Related Nuclear Cataract of Right Eye - 06/19/2020 Balance Problem - 03/12/2020 History of Left-Sided Carotid Endarterectomy - 06/10/2019 Colonic Polyp - 11/29/2018 Group Home (Current) Use of Anticoagulants - 09/15/2018 Recurrent [...] appointment.. Zeny Lam APRN-KAYLA documented in this encounterSelect [facility] [place] Telephone encounter Note * Telephone Encounter - Osei Maciel LPN - 01/12/2024 1:29 PM EDT Patient aware and will call and schedule Lab appt. Osei Maciel LPN [facility] [place]10-08-2024 Miscellaneous Notes* Telephone Encounter - Osei Maciel [...] turn. Antoinette Meadows RN documented in this encounterSelect [facility]ty [facility] [place]24 Telephone encounter Note * Telephone Encounter - Zeny Lam APRN.CNP - 01/12/2024 12:46 PM EDT Okay to continue the coumadin the same with alternating the 5 mg and 7.5 mg doses. Okay to repeat INR in 2 weeks. [facility] [place]10-08-2024 Telephone encounter Note* Telephone Encounter - Antoinette [...] now its your turn. Antoinette Meadows RN [facility] [place]10-07-2024 Telephone encounter Note* Telephone Encounter - Zeny Lam APRN.CNP - 01/11/2024 1:44 PM EDT Yes, okay for the refill, can discuss further with the ER follow up. Refill sent. [facility] [place]10-07-2024 Miscellaneous Notes* Telephone Encounter - Zeny Lam [...] advise, Tammie Munguia RN documented in this encounterSelect Medical [facility]ty [facility] [place]24 Telephone encounter Note * Telephone Encounter - [...] Please review and advise, Tammie Munguia RN [facility] [place]10-02-2024 History of Present illness Narrative* Zeny Lam, ERIK.INFO SPECIALIST - 01/06/2024 11:26 AM EDT SUBJECTIVE Alex [...] once daily. Back Brace (BACK SUPPORT S/M) [facility] Use as instructed. (Patient not taking: Reported on 11/16/2023) No current facility-administered medications for this visit. ALLERGIES Allergen Reactions Cyclobenzaprine Other: See Comments Double vision Gabapentin Intolerance Keflex [Cephalexin] Rash ACTIVE PROBLEM LIST Compression Fracture of L1 Lumbar Vertebra ([facility]) - 07/15/2023 Sciatic Leg Pain - 07/15/2023 Bilateral Carotid Artery Stenosis - 06/15/2023 Acute Gastritis Without Hemorrhage - 04/20/2023 Spinal Stenosis of Lumbar Region - 09/24/2022 Pad (Peripheral Artery Disease) ([facility]) - 08/16/2021 Kidney Insufficiency - 04/04/2021 Posterior Vitreous Detachment of Right Eye - 06/19/2020 Age-Related Nuclear Cataract of Right Eye - 06/19/2020 Balance Problem - 03/12/2020 History of Left-Sided Carotid Endarterectomy - 06/10/2019 Colonic Polyp - 11/29/2018 [employer] (Current) Use of Anticoagulants - 09/15/2018 Recurrent [...] appointment.. Zeny Lam APRN-KAYLA documented in this encounterSelect [facility] [place] Telephone encounter Note * Telephone Encounter - [...] below and recheck date. Brandi Lambert LPN [facility] [place]10-01-2024 Miscellaneous Notes* Telephone Encounter - Brandi Lambert [...] Lambert LPN * Telephone Encounter - Zeny aLm APRN.CNP - 01/05/2024 12:18 PM EDT Please call patient and advise him to continue with current coumadin dosing by taking coumadin 7.5 mg every other day and 5 mg on the other days. Repeat INR in 1 week. documented in this encounterSelect [facility] [place]24 Telephone encounter Note * Telephone Encounter - Zeny Lam APRN.CNP - 01/05/2024 12:18 PM EDT Please call patient and advise him to continue with current coumadin dosing by taking coumadin 7.5 mg every other day and 5 mg on the other days. Repeat INR in 1 week. [facility] [place]09-27-2024 Telephone encounter Note* Telephone Encounter - Gabby Rm LPN - 01/01/2024 3:16 PM EDT PATIENT NOTIFIED OF SAME. Tracker updated. [facility] [place]-27-2024 Miscellaneous Notes* Telephone Encounter - Gabby Rm [...] bruising, no missed doses. documented in this encounterSelect Medical [facility]ty [facility] [place]-27-2024 Telephone encounter Note * Telephone Encounter - Zeny Lam APRN.CNP - 01/01/2024 2:21 PM EDT Please have him reduce his dose to taking coumadin 7.5 mg every other day and 5 mg on the other days, recommend he take the 5 mg today, 7.5 on thu, 5 on thu, 7.5 on Thursday and then repeat INR on Thursday. [facility] [place]-27-2024 Telephone encounter Note* Telephone Encounter - Alvin [...] unusual bleeding or bruising, no missed doses. [facility]-23-2024 Telephone encounter Note* Telephone Encounter - Gabby [...] Rm LPN December 28, 2023 2:40 PM [facility] [place]-23-2024 Miscellaneous Notes* Telephone Encounter - Gabby Rm [...] 28, 2023 2:40 PM documented in this encounterSelect [facility] [place]24 Telephone encounter Note * Telephone Encounter - Cyndy Whelan RN - 12/28/2023 2:38 PM EDT Pt called and is notified of providers results and instructions. Pt voices understanding. Cyndy Whelan RN [facility] [place]-23-2024 Miscellaneous Notes* Telephone Encounter - Cyndy Whelan [...] Information or narrative: NO documented in this encounterSelect Medical Special[facility] [place]-2024 Telephone encounter Note * Telephone Encounter - Zeny Lam APRN.CNP - 12/28/2023 2:27 PM EDT Please call and have Rich take 10 mg of coumadin today, tomorrow, Thursday and and repeatINR on Thursday because of level being so low at 1.3. [facility] [place]-23-2024 Telephone encounter Note* Telephone Encounter - Molly Ann RN - 12/28/2023 12:46 PM EDT Last INR: INR 1.3 12/28/2023 Current dose of coumadin is: 7.5 mg Thu/Thu/Thu/Sat/Sun 5 mg / Last date of dose change: 12/21/23 Previous INR (date and result): INR 1.5 12/21/23 Additional Clinical Information or narrative: NO [facility] [place]-16-2024 Telephone encounter Note* Telephone Encounter - Gabby Rm LPN - 12/21/2023 1:08 PM EDT PATIENT NOTIFIED OF SAME. Tracker updated [facility] [place]-16-2024 Miscellaneous Notes* Telephone Encounter - Gabby Rm [...] of coumadin is: 5 mg every e, Rody; 7.5 mg all other days . [...] took 7.5 mg Fri/Sat/Sun/Mon. documented in this encounterSelect [facility] [place]24 Telephone encounter Note * Telephone Encounter - Zeny Lam APRN.CNP - 12/21/2023 12:54 PM EDT I would recommend he resume his prior dosing of coumadin that he had been taking prior to his dental procedure and then repeat the INR in 1 week to ensure getting back in to desired range. [facility] [place]-16-2024 Telephone encounter Note* Telephone Encounter - Cyndy [...] Pt states he took 7.5 mg Fri/Sat/Sun/Mon. [facility] [place] History of Present illness Narrative* Zeny Lam [...] 7 days. Back Brace (BACK SUPPORT S/M) [facility] Use as instructed. (Patient not taking: Reported on 11/16/2023) No current facility-administered medications for this visit. ALLERGIES Allergen Reactions Cyclobenzaprine Other: See Comments Double vision Gabapentin Intolerance Keflex [Cephalexin] Rash ACTIVE PROBLEM LIST Compression Fracture of L1 Lumbar Vertebra ([facility]) - 07/15/2023 Sciatic Leg Pain - 07/15/2023 Bilateral Carotid Artery Stenosis - 06/15/2023 Acute Gastritis Without Hemorrhage - 04/20/2023 Spinal Stenosis of Lumbar Region - 09/24/2022 Pad (Peripheral Artery Disease) (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 Zeny Lam APRN-KAYLA documented in this encounterSelect [facility] [place] Telephone encounter Note * Telephone Encounter - Haydee Lee LPN - 12/10/2023 4:52 PM EDT Health Maintenance updated. [facility] [place]-05-2024 Miscellaneous Notes* Telephone Encounter - Haydee Lee LPN - 12/10/2023 4:52 PM EDT Health Maintenance updated. * Telephone Encounter - Molly Ann RN - 12/10/2023 4:20 PM EDT Patient calling to say he received his COVID booster (Moderna) at [facility] today. Molly Ann RN documented in this encounterSelect [facility]ty [facility] [place]24 Telephone encounter Note * Telephone Encounter - Molly Ann RN - 12/10/2023 4:20 PM EDT Patient calling to say he received his COVID booster (Moderna) at [facility] today. Molly Ann RN [facility] [place]-03-2024 Telephone encounter Note* Telephone Encounter - Maribel Oden LPN - 12/08/2023 2:26 PM EDT Spoke with pt and information listed below given. Pt verbalizes understanding. Tracker updated. Transferred to bump grader operator to get lab apt booked for 12-18-23. Maribel Oden LPN [facility] [place]-03-2024 Miscellaneous Notes* Telephone Encounter - Maribel Oden LPN - 12/08/2023 2:26 PM EDT Spoke with pt and information listed below given. Pt verbalizes understanding. Tracker updated. Transferred to bump grader operator to get lab apt booked for 12-18-23. [...] INR. Brandi Lambert LPN documented in this encounterSelect [facility] [place]2024 Telephone encounter Note * Telephone Encounter - Gabby Rm LPN - 12/08/2023 2:16 PM EDT LEFT MESSAGE FOR PATIENT TO CALL OFFICE. [facility] [place]-03-2024 Telephone encounter Note* Telephone Encounter - Zeny Lam APRN.CNP - 12/08/2023 12:39 PM EDT Since he still is in the goal parameters of 2-3 for INR we can continue current dose of the coumadin, but preference would be to repeat INR in 10 days instead of 2 weeks to ensure it is not increasing further. [facility] [place]-03-2024 Telephone encounter Note* Telephone Encounter - Brandi [...] that increased his INR. Brandi Lambert LPN [facility] [place]09-03-2024 Telephone encounter Note* Telephone Encounter - Zeny Lam APRN.CNP - 12/08/2023 12:10 PM EDT PDMP website checked and validated. All prescriptions have been APPROPRIATELY filled. No suspiciousactivity was identified. 12/08/2023 by Zeny Lam APRN.CNP [facility] [place]-03-2024 Miscellaneous Notes* Telephone Encounter - Zeny Lam APRN.CNP - 12/08/2023 12:10 PM EDT [facility]. All prescriptions have [...] 08, 2023 10:36 AM documented in this encounterSelect [facility] [place]2024 Telephone encounter Note * Telephone Encounter - [...] Negrete LPN December 08, 2023 10:36 AM [facility] [place]08-28-2024 Telephone encounter Note* Telephone Encounter - Molly [...] RN December 02, 2023 1:19 PM s [facility] [place]08-28-2024 Miscellaneous Notes* Telephone Encounter - Molly Ann [...] 2023 1:19 PM s documented in this encounterSelect Medical [facility] [place]-20-2024 Telephone encounter Note * Telephone Encounter - Tammie Munguia RN - 11/24/2023 1:18 PM EDT Patient notified of results and provider's instructions. Patient verbalizes understanding. Tammie Munguia RN [facility] [place]08-20-2024 Miscellaneous Notes* Telephone Encounter - Tammie Munguia [...] Thanks! Zeny Lam APRN.CNP documented in this encounterSelect Medical [facility]ty [facility] [place]-20-2024 Telephone encounter Note * Telephone Encounter - Zeny Lam APRN.CNP - 11/24/2023 12:51 PM EDT INR is 2.4, continue on current dose of coumadin and repeat INR in 2 weeks. Let me know if any questions or concerns. Thanks! Zeny Lam APRN.CNP [facility] [place]08-19-2024 Telephone encounter Note* Telephone Encounter - Alvin He RN - 11/23/2023 1:41 PM EDT Patient phoned checking to see if the x-tra 4 sessions were approved from [employer] yet. Advised per chart, it does not appear we have received approval letter at this time. Advised letter was faxed [employer] on 11-20-23. Patient agreeable. [facility] [place]08-19-2024 Miscellaneous Notes* Telephone Encounter - Alvin He RN - 11/23/2023 1:41 PM EDT Patient phoned checking to see if the x-tra 4 sessions were approved from [employer] yet. Advised per chart, it does not appear we have received approval letter at this time. Advised letter was faxed [employer] on 11-20-23. Patient agreeable. documented in this encounterSelect [facility] [place]-2024 Telephone encounter Note * Telephone Encounter - Zeny Lam APRN.CNP - 11/17/2023 10:58 AM EDT [facility] [place]-13-2024 Telephone encounter Note* Telephone Encounter - Zeny Lam APRN.CNP - 11/17/2023 10:58 AM EDT See other encounter regarding this. [facility] [place]-13-2024 Miscellaneous Notes* Telephone Encounter - Zeny Lam APRN.CNP - 11/17/2023 10:58 AM EDT See other encounter regarding this. documented in this encounterSelect [facility] [place]2024 Miscellaneous Notes* Telephone Encounter - Zeny Lam APRN.CNP - 11/17/2023 10:58 AM EDT documented in this encounterSelect [facility] [place]-12-2024 Instructions* Patient Instructions* Micah Portillo APRN.CNP, DNP [...] Micah Portillo APRN.CARA GARZA documented in this encounterSelect Medical Specialty [facility] [place] History of Present illness Narrative* Emerald Hunt [...] APRN.CARA GARZA - 11/16/2023 12:42 PM EDT [facility] MALE PATIENT - [...] PSA returned to normal. Was on Saw [place] - did not notice any difference. Restarted taking Saw [place] 400mgs. Started on Flomax at last appt. [...] to knees, as of 2008 --- in [place], neurologist thought related to alcohol; Has had [...] which included preparing to see the patient, [id number] patient care, completing clinical documentation, performing a [...] Micah Portillo DNP, KAYLA Department of Urology [facility] [place] documented in this encounterSelect Medical Specialty [facility] [place]08-08-2024 NoteHNO ID: [id number] Author: WALT YANG R Ac Service: ? [...] reducing alcohol intake. He was living in [facility] since he was born and moved to [place] for job-related which he regret as business environment and living was not the same. About 10 year ago, he moved to [place] and that was when he started experiencing exacerbation of all the condition. 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 No diabetes Coumadin [facility] [address] [address] Dept: [phone] Alex Brooks : 1945 [facility] Acupuncture Intake Form (For Patient Review Regarding Diagnostic Exam) I have received a diagnostic exam by physician or chiropractor within the last six months regarding the condition for which I am seeking treatment. Patient Signature: Alex Brooks Date: 11/12/23 Stock Speculator Signature: Walt Yang Lac. Date: 11/12/23 The patient's history is well detailed in the EMR. Current view: Showing all answers [facility] Tinychat Additional Demo Question 11/05/2023 10:20 AM EDT - Filed by Patient Is this visit related to an accident, other than Workers' Compensation? No Is this visit related to Workers' Compensation? No Do you need an washtub worker? No [facility] Promis Cat V2.0-Physical Function-28 Days [...] explain: I had recent (more content not included)...[facility] [id number] History of Present illness Narrative* Walt Yang [...] reducing alcohol intake. He was living in [facility] since he was born and moved to [place] for job-related which he regret as business environmentand living was not the same. About 10 year ago, he moved to [place] and that was when he started experiencing exacerbation of all the condition. 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 No diabetes Coumadin [facility] [address] [address] Dept: [phone] Alex Brooks : 1945 [facility] Acupuncture Intake Form (For Patient Review Regarding Diagnostic Exam) I have received a diagnostic exam by physician or chiropractor within the last six months regardingthe condition for which I am seeking treatment. Patient Signature: Alex Brooks Date: 11/12/23 Stock Speculator Signature: Walt Yang Lac. Date: 11/12/23 The patient's history is well detailed in the EMR. Current view: Showing all answers [facility] Mychart Additional Demo Question 11/05/2023 10:20 AM EDT - Filed by Patient Is this visit related to an accident, other than Workers' Compensation? No Is this visit related to Workers' Compensation? No Do you need an washtub worker? No [facility] Promis Cat V2.0-Physical Function-28 Days [...] to face with patient for set 2 [place] were retained for 30 minutes # of [...] face time spent with patient Acupuncture and Ethiopian herbal therapy are not a substitute for [...] for which patient is seeking treatment, the Stock Speculator, per [place] Law, recommends that this diagnostic exam be performed. documented in this encounterSelect [facility] [place] Telephone encounter Note * Telephone Encounter - Haydee Lee LPN - 11/10/2023 4:27 PM EDT Patient notified of coumadin instructions and verbalized understanding. [facility] [place]08-06-2024 Miscellaneous Notes* Telephone Encounter - Haydee Lee [...] on pt's phone instructions. documented in this encounterSelect Medical Specialty [facility] [place] Telephone encounter Note * Telephone Encounter - Bonnie Sharif APRN.CNS - 11/10/2023 3:31 PM EDT Continue with Coumadin dosage change recheck INR and check INR 2 weeks [facility] Work Phone: 1(891) 952-685808-06-2024 Telephone encounter Note* Telephone Encounter - Maribel [...] a detailed message on pt's phone instructions. [facility]07-26-2024 Telephone encounter Note* Telephone Encounter - Gabby Rm LPN - 10/30/2023 2:56 PM EDT PATIENT NOTIFIED OF SAME. [facility]07-26-2024 Miscellaneous Notes* Telephone Encounter - Gabby Rm [...] wine lately Please advise documented in this encounterSelect [facility] [place] Telephone encounter Note * Telephone Encounter - Zeny Lam APRN.CNP - 10/30/2023 2:30 PM EDT Continue with current dose of coumadin and repeat INR in 10 days. [facility]07-26-2024 Telephone encounter Note* Telephone Encounter - Corrina Whipple - 10/30/2023 12:30 PM EDT Patient called to give results of INR from today 10/29 INR is 2.0 Coumadine dose is 7.5mg everyday but Tue and Thur 5mg He also said he has not drank much wine lately Please advise [facility] Work Phone: [phone]) 207-969207-25-2024 Telephone encounter Note* Telephone Encounter - Antoinette [...] Meadows RN October 29, 2023 3:28 PM [facility]07-25-2024 Miscellaneous Notes* Telephone Encounter - Antoinette Meadows [...] 29, 2023 3:28 PM documented in this encounterSelect [facility] [place] Telephone encounter Note * Telephone Encounter - Gabby Rm LPN - 10/23/2023 1:08 PM EDT PATIENT NOTIFIED OF SAME. Tracker has been updated. [facility]07-19-2024 Miscellaneous Notes* Telephone Encounter - Gabby Rm [...] advise patient. Thank you. documented in this encounterSelect [facility] Telephone encounter Note * Telephone Encounter - [...] Have him repeat his INRin 1 week. [facility]07-19-2024 Telephone encounter Note* Telephone Encounter - Graciela [...] increased also. Please advise patient. Thank you. [facility]07-02-2024 Telephone encounter Note* Telephone Encounter - Tammie [...] Munguia RN October 06, 2023 4:48 PM [facility]07-02-2024 Miscellaneous Notes* Telephone Encounter - Tammie Munguia [...] 06, 2023 4:48 PM documented in this encounterSelect [facility] [place] Telephone encounter Note * Telephone Encounter - Ramila Zapata LPN - 10/05/2023 1:17 PM EDT Patient notified of results, verbalizes understanding of instructions. Ramila Zapata LPN [facility]07-01-2024 Miscellaneous Notes* Telephone Encounter - Ramila Zapata [...] advise, Tammie Munguia RN documented in this encounterSelect [facility] [place] Telephone encounter Note * Telephone Encounter - Zeny Lam APRN.CNP - 10/05/2023 12:20 PM EDT Okay to increase coumadin dose to 7.5 mg on 4 days a week (Thu, Sat, Thu, and Mon) then 5 mg other days (, Thu, ). Repeat INR in 2 weeks. [facility]07-01-2024 Telephone encounter Note* Telephone Encounter - Tammie [...] Please review and advise, Tammie Munguia RN [facility]06-21-2024 Telephone encounter Note* Telephone Encounter - Lor Patel - 09/25/2023 2:54 PM EDT Pt stated that [employer] has sent approval for accupunture. He [facility] the CPT codes. Billing keeps giving him the run around. Statesthe exact same thing happened [address] Martinez[address] Pt states Zeny is aware of situation. Patient is asking if Zeny can call [employer]. Number is [phone]. [facility]06-21-2024 Miscellaneous Notes* Telephone Encounter - Lor Patel - 09/25/2023 2:54 PM EDT Pt stated that [employer] has sent approval for accupunture. He states billing [facility] to explain the CPT codes. Billing keeps giving him the run around. Statesthe exact same thing happened [address] Martinez. Pt states Zeny is aware of situation. Patient is asking if Zeny can call [employer]. Number is [phone]. documented in this encounterSelect [facility] [place] Telephone encounter Note * Telephone Encounter - Zeny Lam APRN.CNP - 09/25/2023 7:13 AM EDT Approval received. [facility]-21-2024 Miscellaneous Notes* Telephone Encounter - Zeny Lam [...] issues with his insurance. documented in this encounterSelect [facility] [place] Telephone encounter Note * Telephone Encounter - Tala Torres LPN - 09/24/2023 3:18 PM EDT Patient calling wanted to let Zeny know that she should be getting an approval letter for his acupuncture. Patient said not sure if he will be able to have it done, having issues with his insurance. [facility]-19-2024 Telephone encounter Note* Telephone Encounter - Zeny Lam APRN.CNP - 09/23/2023 12:29 PM EDT Noted and agree with same dose and repeat in 2 weeks. [facility]-19-2024 Miscellaneous Notes* Telephone Encounter - Zeny Lam [...] otherwise. Antoinette Meadows RN documented in this encounterSelect [facility] [place] Telephone encounter Note * Telephone Encounter - [...] to do unless he hears otherwise. Antoinette eMadows, RN [facility]06-18-2024 Telephone encounter Note* Telephone Encounter - Katherine Mckeon OCCA - 09/22/2023 4:16 PM EDT Letter faxed back to [facility] asking them to recheck their records as listed NPI is correct as verified by providers office. YENNY Abdi [facility]06-18-2024 Miscellaneous Notes* Telephone Encounter - Katherine Mckeon OCCA - 09/22/2023 4:16 PM EDT Letter faxed back to [facility] asking them to recheck their records as listed NPI is correct as verified by providers office. YENNY Abdi * Telephone Encounter - Katherine Mckeon OCCA - 09/22/2023 4:03 PM EDT Nurse returned call and stated providers NPI is [id number]. YENNY Abdi * Telephone Encounter - Katherine Mckeon OCCA - 09/22/2023 3:35 PM EDT TC to ALAYNA Chase's office at [phone] with no answer. Left detailed VM for nurse to return call to our office to provide NPI number as requested by insurance. YENNY Abdi * Telephone Encounter - Zeny Lam APRN.INFO SPECIALIST - 09/22/2023 12:12 PM EDT Rich is trying to get acupuncture approved through his insurance, they are requesting the NPI for the provider performing the procedure. Apparently the NPI I was able to find is not correct. He is going to see ALAYNA Chase LA c at [facility] located at [facility]. [address] [place] [address], and , on 11/12/2023 at 1:00 pm. Can we please see if we can get his NPI number for the letter to insurance. The number I was told is incorrect is: documented in this encounterSelect [facility] [place] Telephone encounter Note * Telephone Encounter - Katherine Mckeon OCCA - 09/22/2023 4:03 PM EDT Nurse returned call and stated providers NPI is [id number]. YENNY Abdi [facility]06-18-2024 Telephone encounter Note* Telephone Encounter - Katherine Mckeon OCCA - 09/22/2023 3:35 PM EDT TC to ALAYNA Chase's office at [phone] with no answer. Left detailed VM for nurse to return call to our office to provide NPI number as requested by insurance. YENNY Abdi [facility]-18-2024 Telephone encounter Note* Telephone Encounter - Zeny Lam APRN.CNP - 09/22/2023 12:12 PM EDT Rich is trying to get acupuncture approved through his insurance, they are requesting the NPI for the provider performing the procedure. Apparently the NPI I was able to find is not correct. He is going to see ALAYNA Chase LA c at [facility] located at [facility]. [address] [place] [address], and , on 11/12/2023 at 1:00 pm. Can we please see if we can get his NPI number for the letter to insurance. The number I was told is incorrect is: [facility]06-12-2024 Telephone encounter Note* Telephone Encounter - Gabby Rm LPN - 09/16/2023 10:47 AM EDT Updated letter has been faxed to [facility]. [facility]06-12-2024 Miscellaneous Notes* Telephone Encounter - Gabby Rm LPN - 09/16/2023 10:47 AM EDT Updated letter has been faxed to [facility]. * Telephone Encounter - Katherine Mckeon OCCA - 09/15/2023 9:50 AM EDT Please see TE dated 09/10, patient requesting office to not speak to [facility] until after he speaks with Lauryn Lam at appointment today, 09/14. YENNY Abdi * Telephone Encounter - Gabby Rm LPN - 09/08/2023 4:16 PM EDT Letter was sent to [facility] but a fax was sent back from [facility] stating that there are illegible and/or missing [...] letter. Brandi Lambert LPN documented in this encounterSelect [facility] [place]24 Note* Addendum Note - Zeny Lam APRN.CNP - 09/15/2023 4:33 PM EDTAddended by: ZENY LAM on: 09/15/2023 04:33 PM Modules accepted: Orders [facility]06-11-2024 Miscellaneous Notes* Addendum Note - Zeny Lam APRN.CNP - 09/15/2023 4:33 PM EDTAddended by: ZENY LAM on: 09/15/2023 04:33 PM Modules accepted: Orders documented in this encounterSelect [facility] [place] Telephone encounter Note * Telephone Encounter - Zeny Lam APRN.CNP - 09/15/2023 1:54 PM EDT Yes, I will be ordering those with his visit from today. [facility]06-11-2024 Miscellaneous Notes* Telephone Encounter - Zeny Lam APRN.CNP - 09/15/2023 1:54 PM EDT Yes, I will be ordering those with his visit from today. * Telephone Encounter - Gabby Rm LPN - 09/15/2023 1:40 PM EDT Patient is asking about labs to complete prior to appointment in 02/2024. documented in this encounterSelect [facility] [place]24 Telephone encounter Note * Telephone Encounter - Gabby Rm LPN - 09/15/2023 1:40 PM EDT Patient is asking about labs to complete prior to appointment in 02/2024. [facility]06-11-2024 History of Present illness Narrative* Zeny Lam [...] the evening Back Brace (BACK SUPPORT S[facility]M) [facility] Use as instructed. No current facility-administered medications [...] Region - 09/24/2022 Pad (Peripheral Artery Disease) (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 Zeny Lam APRN-INFO SPECIALIST documented in this encounterSelect [facility] [place] Telephone encounter Note * Telephone Encounter - Gabby Rm LPN - 09/15/2023 11:29 AM EDT Noted. [facility]06-11-2024 Miscellaneous Notes* Telephone Encounter - Gabby Rm LPN - 09/15/2023 11:29 AM EDT Noted. * Telephone Encounter - Alvin He, MORIAH - 09/11/2023 1:29 PM EDT Patient wants message sent to Gabby, letting you know, not to respond to [facility] about accupuncture, until he speaks with Zeny at next appt. documented in this encounterSelect [facility] [place] Telephone encounter Note * Telephone Encounter - Zeny Lam APRN.CNP - 09/15/2023 10:27 AM EDT Patient is coming in today for an OV so we will address this then. [facility]06-11-2024 Miscellaneous Notes* Telephone Encounter - Zeny Lam [...] ok to switch to that. Forwarding to [facility] to notify paperwork is being faxed. Antoinette Meadows RN documented in this encounterSelect [facility] [place]24 Telephone encounter Note * Telephone Encounter - Katherine Mckeon OCCA - 09/15/2023 9:50 AM EDT Please see TE dated 09/10, patient requesting office to not speak to [facility] until after he speaks with Lauryn Lam at appointment today, 09/14. YENNY Abdi [facility]06-11-2024 Telephone encounter Note* Telephone Encounter - Katherine Mckeon OCCA - 09/15/2023 9:49 AM EDT Please review below and advise if provider wanting to change dosage as recommended by pharmacy. Do not see in chart that fax was received. YENNY Abdi [facility]06-07-2024 Telephone encounter Note* Telephone Encounter - Osei Maciel LPN - 09/11/2023 5:40 PM EDT No need to call patient per note below. Osei Maciel LPN [facility]06-07-2024 Miscellaneous Notes* Telephone Encounter - Osei Maciel [...] provider wants something different). documented in this encounterSelect [facility] [place]24 Telephone encounter Note * Telephone Encounter - Mani Edwards MD - 09/11/2023 5:03 PM EDT Okay to stay on same dose as planned by patient as noted below and discuss with Zeny at follow up appointment. [facility] Work Phone: [phone] Telephone encounter Note* Telephone Encounter - Alvin He RN - 09/11/2023 1:29 PM EDT Patient wants message sent to Gabby, letting you know, not to respond to [facility] about accupuncture, until he speaks with Zeny at next appt. [facility]06-07-2024 Telephone encounter Note* Telephone Encounter - Alvin [...] do anyway (unless provider wants something different). [facility]06-04-2024 Telephone encounter Note* Telephone Encounter - Gabby [...] was left for patient as to same. [facility]06-04-2024 Telephone encounter Note* Telephone Encounter - Brandi [...] top of the letter. Brandi Lambert LPN [facility]06-03-2024 Telephone encounter Note* Telephone Encounter - Antoinette [...] ok to switch to that. Forwarding to [facility] to notify paperwork is being faxed. Antoinette Meadows RN [facility]06-03-2024 Telephone encounter Note* Telephone Encounter - Tammy Wang MA - 09/07/2023 10:34 AM EDT Pharmacy request denied. Patient needs to contact office for refills. Tammy Wang MA [facility]06-03-2024 Miscellaneous Notes* Telephone Encounter - Tammy Wang MA - 09/07/2023 10:34 AM EDT Pharmacy request denied. Patient needs to contact office for refills. Tammy Wang MA documented in this encounterSelect [facility] [place]2024 Telephone encounter Note * Telephone Encounter - Gabby Rm LPN - 09/04/2023 2:41 PM EDT Letter has been faxed to [facility] [phone]. [facility]-31-2024 Miscellaneous Notes* Telephone Encounter - Gabby Rm LPN - 09/04/2023 2:41 PM EDT Letter has been faxed to [facility] [phone]. * Telephone Encounter - Zeny Lam APRN.CNP - 09/04/2023 2:00 PM EDT Letter printed, please send or have him pick this up. Thanks. * Telephone Encounter - Gabby Rm LPN - 09/04/2023 1:39 PM EDT Spoke with patient and he stated that [facility] is asking for a Out of Network prior authorization letter to see an Out of network commercial real estate sales manager. In the letter it needs to state who he is seeing, when, where and why he is using this out of network provider. Patient is scheduled to see Walt Yang at [facility] on 11/12/2023 at 1:00 pm. Patient is requesting this provider as all other in network providers is too far travel to.He is familiar with and [facility]. [facility] ph. [phone]. documented in this encounterSelect Medical [facility] [place] Telephone encounter Note * Telephone Encounter - Zeny Lam APRN.KAYLA - 09/04/2023 2:00 PM EDT Letter printed, please send or have him pick this up. Thanks. [facility]-31-2024 Telephone encounter Note* Telephone Encounter - Gabby Rm LPN - 09/04/2023 1:39 PM EDT Spoke with patient and he stated that [facility] is asking for a Out of Network prior authorization letter to see an Out of network commercial real estate sales manager. In the letter it needs to state who he is seeing, when, where and why he is using this out of network provider. Patient is scheduled to see Walt Yang at [facility] on 11/12/2023 at 1:00 pm. Patient is requesting this provider as all other in network providers is too far travel to.He is familiar with and [facility]. [facility] ph. [phone]. [facility]-31-2024 Telephone encounter Note* Telephone Encounter - Gabby Rm LPN - 09/04/2023 1:19 PM EDT PATIENT NOTIFIED OF SAME. [facility]05-31-2024 Miscellaneous Notes* Telephone Encounter - Gabby Rm [...] know. Thanks * Telephone Encounter - Cyndy hWelan RN - 09/04/2023 12:15 PM EDT Last [...] first in 13-14 weeks. documented in this encounterSelect Medical Specialty [facility] [place]2024 Telephone encounter Note * Telephone Encounter - Zeny Lam APRN.CNP - 09/04/2023 12:43 PM EDT Since we made adjustments in his duloxetine dose I would like to continue with his current coumadindose and repeat the INR again in 2 weeks. Please let him know. Thanks [facility]-31-2024 Telephone encounter Note* Telephone Encounter - Cyndy [...] which was the first in 13-14 weeks. [facility]05-31-2024 Telephone encounter Note* Telephone Encounter - Gabby Rm LPN - 09/04/2023 8:18 AM EDT PATIENT NOTIFIED OF SAME. [facility]05-31-2024 Miscellaneous Notes* Telephone Encounter - Gabby Rm [...] It was suggested that he see an commercial real estate sales manager. He is asking if you know of [...] or warfarin. Please advise. documented in this encounterSelect [facility] [place]2024 Telephone encounter Note * Telephone Encounter - Zeny Lam APRN.CNP - 09/04/2023 8:14 AM EDT Please let him know a new script has been sent for him to try Cymbalta 40 mg twice daily. [facility]05-29-2024 Telephone encounter Note* Telephone Encounter - Molly Ann RN - 09/02/2023 4:53 PM EDT Patient returned call. He is willing to try split dose of Cymbalta. He says the 60 mg dose he is currently taking is effective and seems to be lasting a little longer since his original message sent.[facility]. Molly Ann RN [facility]05-29-2024 Telephone encounter Note* Telephone Encounter - Gabby Rm LPN - 09/02/2023 4:47 PM EDT LEFT MESSAGE FOR PATIENT TO CALL OFFICE. [facility]05-29-2024 Telephone encounter Note* Telephone Encounter - Zeny Lam APRN.INFO SPECIALIST - 09/02/2023 4:39 PM EDT As for helping the duloxetine be more effective we could split the dosing and see if that is helpful. We could try something like taking 40 mg in the am and then 40 mg in the pm and see how that helps. Let me know what he thinks. Thanks. [facility]-29-2024 Telephone encounter Note* Telephone Encounter - Gabby Rm LPN - 09/02/2023 2:41 PM EDT This has been completed [facility]05-29-2024 Miscellaneous Notes* Telephone Encounter - Gabby Rm [...] record. Molly Ann, RN documented in this encounterSelect Medical Special[facility] [place]2024 Telephone encounter Note * Telephone Encounter - Molly Ann RN - 09/02/2023 1:00 PM EDT Patient calling to ask if COVID Immunization reminder (Health Maintenance) can be removed from his medical record? He says he received the vaccine on 06/24/23 and it is on his immunization record. Molly Ann, RN [facility]05-28-2024 Telephone encounter Note* Telephone Encounter - Gabby [...] can do with medication to last longer? [facility]-28-2024 Telephone encounter Note* Telephone Encounter - Zeny Lam APRN.CNP - 09/01/2023 11:56 AM EDT See other encounter. [facility]05-28-2024 Miscellaneous Notes* Telephone Encounter - Zeny Lam [...] today? Notes in epic. documented in this encounterSelect [facility] [place]2024 Telephone encounter Note * Telephone Encounter - [...] that. Does he need a script sent? [facility]05-24-2024 Telephone encounter Note* Telephone Encounter - Gabby Rm LPN - 08/28/2023 12:19 PM EDT Rich called to state that he did have a good visit with Dr. Moraes on 08/27/23. It was suggested that he see an commercial real estate sales manager. He is asking if you know of [...] interfere with lorazepam or warfarin. Please advise. [facility]05-23-2024 Telephone encounter Note* Telephone Encounter - Alvin [...] with Dr. Moraes today? Notes in epic. [facility]05-23-2024 Instructions* Patient Instructions* Irene Moraes MD - 08/27/2023 2:15 PM EDT Will refer to acupuncture and physical therapy for dry needling RTC 3 months or as need documented in this encounterSelect Medical [facility]ty [facility] [place]24 History of Present illness Narrative* Irene Moraes [...] to knees, as of 2008 --- in [place], neurologist thought related to alcohol; Has had [...] tablet 1 Back Brace (BACK SUPPORT S/M) [facility] Use as instructed. 1 Each 0 lisinopril [...] walk between clinic and parking at [address]. -Awake, alert and oriented x 3, ASSESSMENT / PLAN: Low back pain and compression fracture on L1 - continue to use Aspercream , interested in acupuncture and dry needling - will refer to PT for dry needling and acupuncture. Discussed that can not do both treatments at the same time. Discussed to check with insurance if he is covered for acupuncture done by commercial real estate sales manager or need to see MD for that. Also discusse that he is on snf Coumadin therapy and commercial real estate sales manager know. Will refer to acupuncture and physical therapy for dry needling RTC 3 months or as need I spent 60 minutes in the visit, with more than 50% of the total zlut-cb-cbic time of the visit in counseling / coordination of care. All of the patient's questions and concerns were addressed Follow up visit planning discussed Irene Moraes MD documented in this encounterSelect [facility] Telephone encounter Note * Telephone Encounter - Gabby Rm LPN - 08/26/2023 4:07 PM EDT PATIENT NOTIFIED OF SAME. [facility]24 Miscellaneous Notes* Telephone Encounter - Gabby Rm [...] do some further testing. documented in this encounterSelect Medical [facility]05-[facility]-2024 Telephone encounter Note * Telephone Encounter - [...] bothersome we can do some further testing. 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 Was seen with PT. Some voice currency exchange specialist time. Taking generic Flonase. Some post-nasal drip. [...] Region - 09/24/2022 Pad (Peripheral Artery Disease) (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 [...] which included preparing to see the patient, [id number] patient care, completing clinical documentation, obtaining and/or [...] appointment.. Zeny Lam APRN-KAYLA documented in this encounterSelect [facility]05-[facility]-2024 Telephone encounter Note * Telephone Encounter - Gabby Rm LPN - 08/24/2023 1:39 PM EDT PATIENT NOTIFIED OF SAME. Tracker updated [facility]-20-2024 Miscellaneous Notes* Telephone Encounter - Gabby Rm [...] and tizanidine on Thursday08/21/2023. documented in this encounterSelect [facility]05-20-2024 Telephone encounter Note * Telephone Encounter - Zeny Lam APRN.CNP - 08/24/2023 1:28 PM EDT He should continue with the current dose of coumadin and repeat the INR in 2 weeks. Thanks [facility]24 Telephone encounter Note* Telephone Encounter - Antoinette [...] he finished oxycodone and tizanidine on Thursday08/21/2023. [facility]-14[facility]24 Telephone encounter Note* Telephone Encounter - Zeny Lam APRN.CNP - 08/18/2023 3:52 PM EDT PDMP website checked and validated. All prescriptions have been APPROPRIATELY filled. No suspiciousactivity was identified. 08/18/2023 by Zeny Lam APRN.CNP [facility]-14-2024 Miscellaneous Notes* Telephone Encounter - Zeny Lam [...] 09/15/2023 Graciela Parker RN. documented in this encounterSelect Medical Specialty [facility]05-14-2024 Telephone encounter Note * Telephone Encounter - [...] in primary care: 09/15/2023 Graciela Parker RN. [facility]-10-2024 Miscellaneous Notes* Telephone Encounter - Gabby Rm [...] problems bruising or bleeding. documented in this encounterSelect Medical [facility]05-10-2024 Telephone encounter Note * Telephone Encounter - Gabby Rm LPN - 08/14/2023 3:45 PM EDT PATIENT NOTIFIED OF SAME. Tracker updated. [facility]2024 Telephone encounter Note* Telephone Encounter - Zeny Lam APRN.CNP - 08/14/2023 3:16 PM EDT Please advise him to take the 7.5 mg dose on 2 days of the week (can do Sat and Sun) and then the 5mg all other days and repeat INR in 1 week. Zeny Lam APRN.KAYLA [facility]-2024 Telephone encounter Note* Telephone Encounter - Tala [...] no alcohol, no problems bruising or bleeding. [facility]05-[facility]-2024 Telephone encounter Note* Telephone Encounter - Joce [...] Please advise. Thank you. Joce Schmid MA. [facility]05-09-2024 Miscellaneous Notes* Telephone Encounter - Joce Schmid [...] you. Joce Schmid MA. documented in this encounterSelect [facility]05-07-2024 Telephone encounter Note * Telephone Encounter - Zeny Lam APRN.CNP - 08/11/2023 11:58 AM EDT [facility] website checked and validated. All prescriptions have been APPROPRIATELY filled. No suspiciousactivity was identified. 08/11/2023 by Zeny Lam APRN.CNP [facility]-07-2024 Miscellaneous Notes* Telephone Encounter - Zeny Lam APRN.CNP - 08/11/2023 11:58 AM EDT [facility] checked and validated. All prescriptions have been APPROPRIATELY filled. No suspiciousactivity was identified. 08/11/2023 by Zeny Lam APRN.CNP * Telephone Encounter - Ramlia Anand RN - 08/11/2023 10:18 AM EDT [...] you. Ramila Anand RN. documented in this encounterSelect Medical [facility]05-07-2024 Telephone encounter Note * Telephone Encounter - [...] Please advise. Thank you. Ramila Anand RN. [facility]05-06-2024 Instructions* Patient Instructions* Micah Portillo APRN.CNP, DNP [...] Micah Portillo APRN.CARA GARZA documented in this encounterSelect Medical Specialty [facility]05-06-2024 Nurse Note* Marcell Munguia MA - 08/10/2023 1:01 PM EDT 76 mL of urine in the bladder 40 MINUTES after voiding [facility] Nurse Note* Marcell Munguia MA - 08/10/2023 1:01 PM EDT 76 mL of urine in the bladder 40 MINUTES after voiding documented in this encounterSelect Medical [facility]05-06-2024 History of Present illness Narrative* Micah Portillo APRN.CARA GARZA - 08/10/2023 12:57 PM EDT [facility] MALE PATIENT - HISTORY AND PHYSICAL EXAMINATION PATIENT: Alex Brooks (77 year old) 08/10/2023 PCP: Zeny Lam APRN.KAYLA Consultation requested by Dr. Franc Hills [address] [facility] [id number] for an opinion regarding BPH/LUTS and my [...] any BPH/LUTS oral medications. Was on Saw [place] - did not notice any difference. PRESENTING [...] to knees, as of 2008 --- in [place], neurologist thought related to alcohol; Has had [...] as needed. Back Brace (BACK SUPPORT S/M) [facility] Use as instructed. lisinopril (ZESTRIL) 20 mg [...] which included preparing to see the patient, [id number] patient care, completing clinical documentation, performing a medically appropriate examination, counseling and educating the patient/family/caregiver and ordering medications, tests, or procedures. Micah Portillo DNP, KAYLA Department of Urology [facility] documented in this encounterSelect Medical [facility]04-30-2024 Telephone encounter Note * Telephone Encounter - Zeny Lam APRN.CNP - 08/04/2023 1:17 PM EDT [facility] website checked and validated. All prescriptions have been APPROPRIATELY filled. No suspiciousactivity was identified. 08/04/2023 by Zeny Lam APRN.CNP [facility]-30-2024 Miscellaneous Notes* Telephone Encounter - Zeny Lam APRN.CNP - 08/04/2023 1:17 PM EDT [facility] website checked and validated. All prescriptions have [...] you. Ramila Anand RN. documented in this encounterSelect Medical [facility]04-30-2024 Telephone encounter Note * Telephone Encounter - [...] Please advise. Thank you. Ramila Anand RN. [facility]04-25-2024 Telephone encounter Note* Telephone Encounter - Molly Ann RN - 07/30/2023 1:25 PM EDT Spoke with patient. Given message from provider's office. Patient verbalizes understanding. He confirmed he received VM message. Molly Ann RN [facility]-25-2024 Miscellaneous Notes* Telephone Encounter - Molly Ann [...] message. Maribel Oden LPN documented in this encounterSelect Medical Specialty [facility]04-25-2024 Telephone encounter Note * Telephone Encounter - Celia James LPN - 07/30/2023 1:22 PM EDT Left detailed message regarding coumadin instructions and was advised to call back to confirm message was received. Celia James LPN [facility]-25-2024 Telephone encounter Note* Telephone Encounter - Bonnie Sharif APRN.SHANA - 07/30/2023 12:47 PM EDT Continue with current Coumadin dosing unchanged. Regarding dental appointment: Recommend checking INR 5 to 7 days after resuming Coumadin. He may resume Coumadin at 5 mg daily. [facility]24 Telephone encounter Note* Telephone Encounter - Maribel Oden LPN - 07/30/2023 11:39 AM EDT See phone encounter 07-30-23 anticoagulation. Maribel Oden LPN [facility]-25-2024 Miscellaneous Notes* Telephone Encounter - Maribel Oden LPN - 07/30/2023 11:39 AM EDT See phone encounter 07-30-23 anticoagulation. Maribel Oden LPN documented in this encounterSelect [facility]04-25-2024 Telephone encounter Note * Telephone Encounter - [...] leave a detailed message. Maribel Oden LPN [facility]-22-2024 Instructions* Patient Instructions* Zeny Lam APRN.CNP - 07/27/2023 1:18 PM EDT Start reducing your use of the muscle relaxer, the Zanaflex (tizanidine) as pain improves. Increase the dose of the Cymbalta from the 30 mg daily to 60 mg daily. Try to use your back brace for a short time daily. documented in this encounterSelect [facility]04-22-2024 History of Present illness Narrative* Zeny Lam [...] He was seen in the ER at [facility] on 07/15/2023. He had an MRI [...] LIST Compression Fracture of L1 Lumbar Vertebra ([facility]) - 07/15/2023 Sciatic Leg Pain - 07/15/2023 Bilateral Carotid Artery Stenosis - 06/15/2023 Acute Gastritis Without Hemorrhage - 04/20/2023 Spinal Stenosis of Lumbar Region - 09/24/2022 Pad (Peripheral Artery Disease) (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 Zeny Lam APRN-INFO SPECIALIST documented in this encounterSelect Medical [facility]04-22-2024 Telephone encounter Note * Telephone Encounter - [...] Please advise. Thank you. Mirlande Maria MA. [facility]04-22-2024 Miscellaneous Notes* Telephone Encounter - Mirlande Maria [...] you. Mirlande Maria MA. documented in this encounterSelect [facility]04-16-2024 History of Present illness Narrative* Edgar Loaiza DO - 07/21/2023 11:25 AM EDT Images from the original note were not included. [facility] [place] DEPARTMENT OF VASCULAR SURGERY OUTPATIENT VISIT DATE [...] to knees, as of 2008 --- in [place], neurologist thought related to alcohol; Has had [...] as needed. Back Brace (BACK SUPPORT S/M) [facility] Use as instructed. lisinopril (ZESTRIL) 20 mg [...] 2023 TIME: 11:25 AM documented in this encounterSelect Medical [facility]04-16-2024 Miscellaneous Notes* Telephone Encounter - Zeyn Lam APRN.INFO SPECIALIST - 07/21/2023 8:18 AM EDT PDMP website [...] the rx Please advise. Thank you. Tala Torrse LPN. documented in this encounterSelect Medical [facility]04-13-2024 History of Present illness Narrative* Franc Hills MD - 07/18/2023 9:24 AM EDT This note was created using Graffitiriter. Subjective Patient presents with: ED Follow-up: back [...] (Gastroesophageal Reflux Disease) Recurrent Pulmonary Embolism ([facility]) Group Home (Current) Use of Anticoagulants Colonic Polyp History of Left-Sided Carotid Endarterectomy Balance Problem 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 Kidney Insufficiency Pad (Peripheral Artery Disease) ([facility]) Spinal Stenosis of Lumbar Region Acute Gastritis Without Hemorrhage Bilateral Carotid Artery Stenosis Compression Fracture of L1 Lumbar Vertebra ([facility]) Sciatic Leg Pain Current Outpatient Medications Medication [...] as needed. Back Brace (BACK SUPPORT S/M) [facility] Use as instructed. lisinopril (ZESTRIL) 20 mg [...] scheduled. Franc Hills MD documented in this encounterSelect [facility]04-12-2024 Miscellaneous Notes* Telephone Encounter - Maribel Oden [...] you. Maribel Oden LPN. documented in this encounterSelect Medical [facility]04-10-2024 Miscellaneous Notes* Telephone Encounter - Kristina Youssef [...] out of the office. Routing to Provider showroom consultant Maribel Oden LPN documented in this encounterSelect [facility]04-10-2024 Miscellaneous Notes* Telephone Encounter - Maribel Oden [...] you. Maribel Oden LPN. documented in this encounterSelect [facility]04-10-2024 History of Present illness Narrative* Brian Prather, [...] and driving. Patient agreeable to go to [place] ED due to cauda equina symptoms today [...] [address] Brian Prather PT documented in this encounterSelect [facility]04-02-2024 Miscellaneous Notes* Telephone Encounter - Antoinette Meadows [...] advise, Antoinette Meadows RN documented in this encounterSelect Medical [facility]03-26-2024 Miscellaneous Notes* Telephone Encounter - Maribel Mccoy [...] pt. Maribel Oden LPN documented in this encounterSelect Medical Specialty [facility]03-25-2024 History of Present illness Narrative* Zeny Lam [...] Medication Sig Back Brace (BACK SUPPORT S/M) [facility] Use as instructed. lisinopril (ZESTRIL) 20 mg [...] Endarterectomy - 06/10/2019 Colonic Polyp - 11/29/2018 [employer] (Current) Use of Anticoagulants - 09/15/2018 Recurrent [...] appointment.. Zeny Lam APRN-KAYLA documented in this encounterSelect Medical [facility]03-22-2024 Miscellaneous Notes* Telephone Encounter - Zeny Lam APRN.CNP - 06/26/2023 7:12 AM EDT Agree with being seen since his pain is persistent. * Telephone Encounter - Cyndy Whelan RN - 06/24/2023 10:08 AM EDT Pt called in and reports he has had the back pain for 6 weeks and it is just getting worse. He reports he was looking at the [facility] newsletter for bad back, and he said the only thing he wouldn't be able to do was they therapy due to the pain. He states he would like to go over orthopedic surgery etc.Pt scheduled with provider 06/29/23. documented in this encounterSelect Medical [facility]03-19-2024 Miscellaneous Notes* Telephone Encounter - Zeny Lam [...] date of : Yes, Provider Zeny Lam BREAKDOWN MILL OPERATOR Date 06/23/23 Time 0827. Patient phones for [...] you. Cyndy Whelan RN. documented in this encounterSelect Medical [facility]03-15-2024 Miscellaneous Notes* Telephone Encounter - Lizz Smith [...] advise. Lizz Smith MA, documented in this encounterSelect Medical Specialty [facility]03-15-2024 Miscellaneous Notes* Telephone Encounter - Lizz Smith [...] message. Maribel Oden LPN documented in this encounterSelect Medical Special[facility]03-11-2024 Miscellaneous Notes* Telephone Encounter - Kari Briones [...] you. Kari Briones LPN. documented in this encounterSelect Medical Specialty [facility]03-11-2024 Miscellaneous Notes* Telephone Encounter - Ramila Anand [...] water therapy is not an option in [facility], I'm not sure what the closest option would be, I know the [facility] in [place] can do the pool therapy. * Telephone Encounter - Tala Torres LPN - 06/15/2023 9:00 AM EDT Patient calling was asking about doing Physical therapy for his back pain? Or doing whirlpool or aqua therapy? His insurance [employer] is out of network. Told him [facility] does not have water therapy or [...] you. Tala Torres LPN. documented in this encounterSelect Medical [facility]ty [facility]03-11-2024 History of Present illness Narrative* Sunny Mercedes MD - 06/15/2023 1:00 PM EDT Images from the original note were not included. [facility] SECTION OF REGIONAL CARDIOLOGY Cardiology ([facility]) [address] [id number] OUTPATIENT VISIT DATE 06/14/2023 PRIMARY CARE PHYSICIAN: Zeny Lam [address] [place] [address] HISTORY OF PRESENT ILLNESS: Mr. Brooks is [...] to knees, as of 2008 --- in [place], neurologist thought related to alcohol; Has had [...] 7 days. Back Brace (BACK SUPPORT S/M) [facility] Use as instructed. tiZANidine (ZANAFLEX) 4 mg [...] I65.23 Sunny Mercedes MD documented in this encounterSelect Medical [facility]03-08-2024 Miscellaneous Notes* Telephone Encounter - Ramila Anand [...] Information or narrative: no documented in this encounterSelect Medical Specialty [facility]03-08-2024 Miscellaneous Notes* Telephone Encounter - Katherine Mckeon [...] in for an appt. documented in this encounterSelect Medical Specialty [facility]03-06-2024 Miscellaneous Notes* Telephone Encounter - Madelyn Cohen [...] pass along his request. documented in this encounterSelect Medical Specialty [facility]03-04-2024 Miscellaneous Notes* Telephone Encounter - Zeny Lam [...] you. Maribel Oden LPN. documented in this encounterSelect Medical [facility]ty [facility]03-01-2024 Miscellaneous Notes* Telephone Encounter - Ramila Anand [...] No bleeding or bruising. documented in this encounterSelect Medical Specialty [facility]03-01-2024 Miscellaneous Notes* Telephone Encounter - Julieth Avila LPN - 06/05/2023 8:47 AM EST Letter taken to medical records to be mailed out this day. Julieth Avila LPN documented in this encounterSelect Medical [facility]ty [facility]02-29-2024 Miscellaneous Notes* Telephone Encounter - Betzaida Kiser Ma - 06/04/2023 9:20 AM EST Received patient's MyChart information with DME information. Back brace order, demographics, insurance cards, photo ID, and office visit note has been faxed to [facility] in [place] . Fax confirmation received. The intake department at [facility] will be in contact with the patient. If patient should have any questions regarding the back brace, he should contact [facility] directly at . Notified the patient via [employer]. * Telephone Encounter - Saida Aggarwal - 06/03/2023 3:53 PM EST Patient called back to inform Staff that [facility] has advised that the order should be sent to [facility]. Patient did not have contact info. Informed Patient that I couldn't find any information online for [facility]. Patient stated he will call [facility] back to confirm that this is the correct DME. Patient advised to send us preferred DME information via [employer]CRisk message. Patient is agreeable to do this. Saida Aggarwal * Telephone Encounter - Saida Aggarwal - 06/03/2023 3:05 PM EST Patient notified [facility] staff that insurance will not cover back brace supplied by [facility]. Patient requesting order be sent to [facility] in [place]. Patient did not provide contact information for [...] be emailed to Leatha. documented in this encounterSelect Medical [facility]02-28-2024 Miscellaneous Notes* Telephone Encounter - Zeny Lam APRN.CNP - 06/03/2023 3:07 PM EST Noted. * Telephone Encounter - Corrina Velarde LPN - 06/03/2023 2:59 PM EST Pt states Dr Leal does not recommend surgery, states he is ordering a back brace for him from [facility] in [place]. Corrina Velarde LPN documented in this encounterSelect Medical Specialty [facility]02-28-2024 History of Present illness Narrative* Mckinley Leal MD - 06/03/2023 1:46 PM EST [facility] Date: June 03, 2023 - 1:46 PM Chief Complaint: back pain SUBJECTIVE: Mr. Brooks presents to the [facility] for a follow up appointment [...] to knees, as of 2008 --- in [place], neurologist thought related to alcohol; Has had [...] Panel: No results found for: UQCANN, UQBNZL, XCB4BOI, UQAMPH, UQMAMP, UQBUPRE, UQNORBUP, UQMTHD, UQEDDP, UQTRAM, [...] Compression fracture of l1 vertebra, initial encounter ([facility]) (primary encounter diagnosis) PLAN: Prior available imaging [...] Mckinley Leal MD cc: Dr. Zeny Lam APRN.INFO SPECIALIST cc: No referring provider defined for this encounter. Phone: N/A Fax: Results of consultation to be transmitted via electronic medical record for those providers who practice within [facility] or with access to [employer] via MD Connect, or via letter. 1. [...] of your PCP/referring physician. documented in this encounterSelect Medical Specialty [facility]02-27-2024 Miscellaneous Notes* Telephone Encounter - Betzaida Kiser [...] on Thursday. Email has been sent to [employer] to see if they have a physician they recommend to the the patientin sooner. [facility] requires 10 business days for prior authorization and Dr. Leal is out of the office from 06/12/23-06/22/23. Awaiting response from [employer]. * Telephone Encounter - Betzaida Kiser Ma - 06/01/2023 1:[address] Leal does perform kyphoplasty. Will notify Dr. Leal of MRI results. * Telephone Encounter - Tammy Wang MA - 06/01/2023 1:26 PM EST Routed to [facility] pain clinical pool. Phone call to pain management in [place] to see if Dr. Leal performs or [...] you! 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 Corrina Velarde LPN documented in this encounterSelect Medical Special[facility]02-20-2024 Miscellaneous Notes* Telephone Encounter - Madelyn Cohen [...] Past PM Meds: NONE documented in this encounterSelect [facility]02-20-[facility]24 History of Present illness Narrative* Edgar Laoiza DO - 05/26/2023 10:26 AM EST Images from the original note were not included. [facility] [place] DEPARTMENT OF VASCULAR SURGERY OUTPATIENT VISIT DATE May 26, 2023 OUTPATIENT VISIT TYPE ESTABLISHED SERVICE DATE: 05/26/2023 SERVICE TIME: 10:26 AM PRIMARY CARE PHYSICIAN: Zeny Lam APRN.INFO SPECIALIST HISTORY OF PRESENT ILLNESS: Mr. Brooks is [...] to knees, as of 2008 --- in [place], neurologist thought related to alcohol; Has had [...] 2023 TIME: 10:26 AM documented in this encounterSelect Medical [facility]02-19-2024 Miscellaneous Notes* Telephone Encounter - Brenda Carlson [...] that? He states he wrote in his Guocool.comhart msg that his back was feeling better [...] with msg. He does not want a Guocool.comhart msg. * Telephone Encounter - Brenda Carlson - 05/25/2023 7:55 AM EST Please see pt message Brenda Carlson documented in this encounterSelect [facility]02-17-2024 Miscellaneous Notes* Telephone Encounter - Rosalia Durand LPN - 05/23/2023 3:41 PM EST Patient calling with regards to his upcoming MRI. Patient denies any new or worsening symptoms of which a provider is not aware:Yes pt will call his pcp office Thursday to discuss further. Pt also sent a [employer] message to his pcp today. Rosalia Durand LPN documented in this encounterSelect [facility]02-16-2024 Miscellaneous Notes* Telephone Encounter - Zeny Lam [...] you. Corrina Velarde LPN. documented in this encounterSelect Medical [facility]02-13-2024 Miscellaneous Notes* Telephone Encounter - Tammie Munguia [...] RN - 05/19/2023 12:01 PM EST [facility]- [facility] Main lab reporting an urgent INR 5.5. [...] or green leaf vegetables. documented in this encounterSelect Medical [facility]02-13-2024 Miscellaneous Notes* Telephone Encounter - Graciela Parker RN - 05/19/2023 9:57 AM EST Patient calling with MRI question. Question answered. Graciela Parker RN documented in this encounterSelect Medical [facility]02-12-2024 History of Present illness Narrative* Zeny Lam APRN.INFO SPECIALIST - 05/18/2023 2:14 PM EST Images from [...] Seen in the ED for this at [facility]. Percocet has not been helping a [...] Endarterectomy - 06/10/2019 Colonic Polyp - 11/29/2018 Group Home (Current) Use of Anticoagulants - 09/15/2018 Recurrent [...] appointment.. Zeny Lam APRN-KAYLA documented in this encounterSelect Medical [facility]02-09-2024 Miscellaneous Notes* Telephone Encounter - Tammy Wang [...] message. Maribel Oden LPN documented in this encounterSelect Medical Specialty [facility]02-08-2024 Miscellaneous Notes* Telephone Encounter - Tala Torres LPN - 05/14/2023 1:51 PM EST Patient calling from [facility] ER wanted to make sure that Zeny gets all of his records from the ER. He said may have to see insurance verification specialist. He did not have any brain [...] OTHER SYMPTOMS: Back Pain Protocols used: Head [id number]-[id number]-YN documented in this encounterSelect Medical [facility]02-07-2024 Miscellaneous Notes* Telephone Encounter - Celia James [...] Thank you. Celia James. documented in this encounterSelect Medical [facility]02-01-2024 Miscellaneous Notes* Telephone Encounter - Kari Briones [...] you. Alvin He RN. documented in this encounterSelect Medical Specialty [facility]12-19-2023 Miscellaneous Notes* Telephone Encounter - Zeny Lam [...] N/A . Protocols used: Blood Pressure - Jia-DVNPE-IK documented in this encounterSelect Medical Specialty [facility]12-15-2023 Miscellaneous Notes* Telephone Encounter - Gabby Rm LPN - 03/20/2023 3:21 PM EST Would just need a standing order for INR placed for [facility] [place] in order for INR to come to you. * Telephone Encounter - Zeny Lam APRN.KAYLA - 03/20/2023 1:54 PM EST So does new lab order needs placed in epic or sent to [facility]? * Telephone Encounter - Gabby Rm LPN - 03/20/2023 11:23 AM EST PATIENT NOTIFIED OF SAME. States he has the INR drawn here at [facility] lab. * Telephone Encounter - Zeny Lam [...] blocking his toilet- and he has had cdl driver visit 3 x's in the past week to unblock it. Reports he drinks 80 oz water daily, plus 4 cups coffee in the morning. Patient reports he researched pantoprazole and learned that it can cause constipated stools. Patient asking pcp is it ok for him to take miralax while taking pantoprazole? Please phone patient with reply. documented in this encounterSelect Medical [facility]12-13-2023 Miscellaneous Notes* Telephone Encounter - Tammy Wang [...] antibiotics. Corrina Velarde LPN documented in this encounterSelect Medical Specialty [facility]12-05-2023 Miscellaneous Notes* Telephone Encounter - Tammie Munguia [...] patient. Brandi Lambert LPN documented in this encounterSelect Medical Specialty [facility]11-29-2023 Miscellaneous Notes* Telephone Encounter - Cyndy Whelan RN - 03/04/2023 3:35 PM EST Pt called and is notified of providers results and instructions. Pt voices understanding. Sent information to Pt through 2CRisk. He states he isn't trying to lose weight, he's right where he wants to be. He states he uses an scot called [employer] to track his Carbs and sugars. Cyndy [...] age for carbs and sugars? Reports [facility] states the max carbs should be 130 g / day, and sugar should be no more than 36 g / day, and he is way under that. Please advise patient. documented in this encounterSelect Medical Specialty [facility]11-27-2023 Miscellaneous Notes* Telephone Encounter - Judi Shin - 03/02/2023 9:39 AM EST Pt scheduled next lab appt to check A1C on June 02, 2023. Will need lab order attached to that appt. documented in this encounterSelect Medical Specialty [facility]11-24-2023 Miscellaneous Notes* Telephone Encounter - Mohsen Wayne [...] opinion. Antoinette Meadows RN documented in this encounterSelect Medical Specialty [facility]11-21-2023 Telephone encounter Note * Telephone Encounter - Carmen Pham - 02/24/2023 3:41 PM EST 04/20/[address] ROSENBERG PATIENT TO STAY ON COUMADIN [facility]11-21-2023 Miscellaneous Notes* Telephone Encounter - Carmen Pham - 02/24/2023 3:41 PM EST 04/20/[address] ROSENBERG PATIENT TO STAY ON COUMADIN documented in this encounterSelect Medical Specialty [facility]11-20-2023 Miscellaneous Notes* Telephone Encounter - Zeny Lam [...] advise, Tammie Munguia RN documented in this encounterSelect Medical Specialty [facility]11-15-2023 Miscellaneous Notes* Telephone Encounter - Gabby Rm [...] Current dose of coumadin is: 10 mg Fiwm-Bmb-Htt and 7.5 mg all other days. Last date of dose change: 01/14/2023. Previous INR (date and result): 02/04/2023 was 2.6 Additional Clinical Information or narrative: no missed doses, no bleeding issues, no antibiotics, last greens he ate broccoli on Thursday and last alcohol was Thursday. Can leave patient message with instructions. documented in this encounterSelect Medical [facility]11-07-2023 Miscellaneous Notes* Telephone Encounter - Zeny Lam [...] the appt, on 07-13-23. documented in this encounterSelect Medical [facility]11-06-2023 Miscellaneous Notes* Telephone Encounter - Brandi Lambert LPN - 02/09/2023 11:34 AM EST Pt called to reiterate that he does not need a new rx for pantoprazole. Brandi Lambert LPN documented in this encounterSelect Medical Special[facility]11-06-2023 Miscellaneous Notes* Telephone Encounter - Brandi Lambert LPN - 02/09/2023 11:33 AM EST Pt reports he has a rx [facility]oprazole at [facility] appening. Brandi Lambert LPN documented in this encounterSelect Medical Specialty [facility]11-01-2023 Miscellaneous Notes* Telephone Encounter - Zeny Lam [...] back. Maribel Oden LPN documented in this [facility]10-26-2023 Miscellaneous Notes* Telephone Encounter - Rosalia [...] you. Rosalia Umanzor LPN. documented in this [facility]10-26-2023 Miscellaneous Notes* Telephone Encounter - Rosalia [...] you. Rosalia Umanzor LPN. documented in this encounterSelect Medical [facility]10-20-2023 History of Present illness Narrative* Zeny Lam APRN.INFO SPECIALIST - 01/23/2023 1:46 PM EDT SUBJECTIVE Alex [...] Endarterectomy - 06/10/2019 Colonic Polyp - 11/29/2018 Group Home (Current) Use of Anticoagulants - 09/15/2018 Recurrent [...] On coumadin. INR at goal range. 3. [facility] (current) use of anticoagulants - ICD9: V58.61, [...] Percocet as needed, very rare use, signed [facility]. 7. Primary hypertension - ICD9: 401.9, ICD10: I10 - Controlled - Continue current medications - Recommend home blood pressure monitoring, to bring results to next visit - Encouraged sodium restriction, DASH or Mediterranean diet - Recommend regular aerobic exercise I spent a total of 30 minutes on the date of the service which included preparing to see the patient, nicc-gm-cdgs patient care, completing clinical documentation, obtaining and/or [...] physical.. Zeny Lam APRN-KAYLA documented in this encounterSelect Medical [facility]10-19-2023 Miscellaneous Notes* Telephone Encounter - Haydee Lee [...] PM EDT This should go to his BREAKDOWN MILL OPERATOR Sara Baxter or digital solutions architect if she does not do INR dosing. [...] antibiotics. No missed doses. documented in this encounterSelect Medical [facility]10-16-2023 Miscellaneous Notes* Telephone Encounter - Maribel Oden [...] advise, Tammie Munguia RN documented in this encounterSelect Medical Specialty [facility]10-16-2023 History of Present illness Narrative* Mckinley Leal MD - 01/19/2023 12:54 PM EDT [facility] Date: January 19, 2023 - 12:55 PM Chief Complaint: back pain SUBJECTIVE: Mr. Brooks presents to the [facility] for a follow up appointment [...] He is currently receiving medications through the [facility]. He is not having difficulty [...] to knees, as of 2008 --- in [place], neurologist thought related to alcohol; Has had [...] Panel: No results found for: UQCANN, UQBNZL, RGJ0LKV, UQAMPH, UQMAMP, UQBUPRE, UQNORBUP, UQMTHD, UQEDDP, UQTRAM, [...] record for those providers who practice within [facility] or with access to [employer] via MD Connect, or via letter. 1. [...] of your PCP/referring physician. documented in this encounterSelect Medical Specialty [facility]10-11-2023 Miscellaneous Notes* Telephone Encounter - Cyndy Whelan [...] LPN * Telephone Encounter - Zeny Lam APRN.INFO SPECIALIST - 01/14/2023 12:36 PM EDT Okay to [...] back. Maribel Oden LPN documented in this encounterSelect Medical [facility]10-06-2023 Miscellaneous Notes* Telephone Encounter - Kristina Youssef [...] the past 2 days. documented in this encounterSelect Medical Specialty [facility]10-04-2023 Miscellaneous Notes* Telephone Encounter - Tala Torres [...] else he can take? documented in this encounterSelect Medical Special[facility]09-26-2023 Telephone encounter Note * Telephone Encounter - Zeny Lam APRN.CNP - 12/30/2022 1:13 PM EDT I'm okay with seeing him, okay to put him on my schedule [facility]09-26-2023 Miscellaneous Notes* Telephone Encounter - Zeny Lam APRN.CNP - 12/30/2022 1:13 PM EDT I'm okay with seeing him, okay to put him on my schedule * Telephone Encounter - Judi Shin - 12/30/2022 8:49 AM EDT Pt called to scheduled with Zeny in April to [facility]. States he saw her yesterday and asked if he could have her as a primary care. States she said yes. Please advise if this is okay. Pt is concerned for privacy and does not what Dr. Hills to know of his decision. documented in this encounterSelect Medical Specialty [facility]09-26-2023 Telephone encounter Note * Telephone Encounter - Judi Shin - 12/30/2022 8:49 AM EDT Pt called to scheduled with Zeny in April to [facility]. States he saw her yesterday and asked if he could have her as a primary care. States she said yes. Please advise if this is okay. Pt is concerned for privacy and does not what Dr. Hills to know of his decision. [facility] Work Phone: [phone]) 607-961809-25-2023 Miscellaneous Notes* Telephone Encounter - Tammie Rg RN - 12/29/2022 5:08 PM EDT Patient calling with request for health information: patient requesting health information about Moderna Vaccine, reviewed information from CDC , and verbalized understanding of information provided.Patient denies any new or worsening symptoms of which a provider is not aware: Yes. Source: https://www.cdc.gov/vaccines/covid-19/oefl-pt-wkpcdpj/moderna/reactogenicity.htm l If you have any questions, you can call Nurse showroom consultant back at anytime OR speak to your provider's office when they open in the morning. documented in this encounterSelect Medical Specialty [facility]09-25-2023 History of Present illness Narrative* Zeny Lam [...] The weekend prior to this he ate Latvian food with a lot of hot sauce. [...] Region - 09/24/2022 Pad (Peripheral Artery Disease) (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) - 05/08/2014 Comment: 1st episode 2009, 2nd [...] which included preparing to see the patient, fzlb-dj-ctgc patient care, completing clinical documentation, obtaining and/or [...] for Keep next scheduled appointment.. Zeny Lam APRN-INFO SPECIALIST documented in this encounterSelect Medical Specialty [facility]09-21-2023 Miscellaneous Notes* Telephone Encounter - Alvin He RN - 12/25/2022 9:57 AM EDT Patient reports he vomited 3 days ago, one time. Reports he had diarrhea 2-3 days ago, and now onlyhaving a lot of gas. Reports he ate Latvian on the 15th and 17th, but doesn't think that has anything to do with it. Reports he is now eating a bland diet and getting plenty of clear liquids, and thinks he's on the mend. States he doesn't need an appt right now, but if condition worsens he plans tocall back to schedule appt with Dede Masterson. documented in this encounterSelect Medical Specialty [facility]09-13-2023 Miscellaneous Notes* Telephone Encounter - Mani Edwards [...] ablation? Rich Meadows RN documented in this encounterSelect Medical Specialty [facility]09-13-2023 Miscellaneous Notes* Telephone Encounter - Antoinette Meadows RN - 12/17/2022 9:55 AM EDT See TE 12/17/2022. Antoinette Meadows RN documented in this encounterSelect Medical Specialty Hospital [facility]09-06-2023 Nurse Note* Betzaida Kiser Ma - 12/10/2022 [...] : Betzaida Kiser Ma) documented in this encounterSelect Medical Specialty [facility]09-06-2023 History of Present illness Narrative* Mckinley Leal MD - 12/10/2022 9:46 AM EDT [facility] Date: December 10, 2022 - 9:47 AM Chief Complaint: Back pain SUBJECTIVE: Mr. Brooks presents to the [facility] for a follow up appointment [...] to knees, as of 2008 --- in [place], neurologist thought related to alcohol; Has had [...] Panel: No results found for: UQCANN, UQBNZL, OEL7EHJ, UQAMPH, UQMAMP, UQBUPRE, UQNORBUP, UQMTHD, UQEDDP, UQTRAM, [...] PROMIS Profile Date completed: 12/10/2022 Scanned into [facility]: Yes See nursing note. Intervention: This is [...] Dr. Franc Hills MD cc: Franc Hills [id number] [facility] [id number] Results of consultation to be transmitted via electronic medical record for those providers who practice within [facility] or with access to [employer] via MD Connect, or via letter. 1. [...] of your PCP/referring physician. documented in this encounterSelect Medical Specialty [facility]09-05-2023 Miscellaneous Notes* Telephone Encounter - Kari Briones LPN - 12/09/2022 3:45 PM EDT [facility], Patient does have a refill of Lorazepam (Ativan), can fill tomorrow. Kari Briones LPN documented in this encounterSelect Medical Specialty [facility]09-05-2023 History of Present illness Narrative* Kvng Magaña [...] of its relevant components. documented in this encounterSelect Medical Specialty [facility]09-02-2023 Miscellaneous Notes* Telephone Encounter - Kristina Youssef [...] advise, Tammie Munguia RN documented in this encounterSelect Medical Specialty [facility]2023 Miscellaneous Notes* Telephone Encounter - Kari Briones [...] the cost would be. documented in this encounterSelect Medical Specialty Hospital [facility]08-30-2023 Miscellaneous Notes* Telephone Encounter - Judi Jacobson - 12/03/2022 10:16 AM EDT Request to hold anticoagulation form sent to scanning. Date signed 11/26/22 documented in this encounterSelect Medical Specialty [facility]08-29-2023 Miscellaneous Notes* Telephone Encounter - Antoinette Meadows [...] well. Antoinette Meadows RN documented in this encounterSelect Medical Specialty [facility]08-28-2023 Miscellaneous Notes* Telephone Encounter - Sara Baxter APRN.CNP - 12/01/2022 3:50 PM EDT Noted Sara Baxter APRN.CNP * Telephone Encounter - Maribel Oden LPN - 12/01/2022 3:10 PM EDT Pt called to let you know he got a flu shot today 12-01-22 [facility] in [place]. Pt reports he will be getting an RSV injection tomorrow. He will be getting his INR done on 12-03-22. [facility] to send you confirmation on vaccines given with information on the vaccines. Maribel Oden LPN documented in this encounterSelect Medical Specialty [facility]08-21-2023 History of Present illness Narrative* Franc Hills MD - 11/24/2022 5:45 PM EDT This note was created using Graffitiriter. Subjective Patient presents with: F/U 3 Month [...] (Gastroesophageal Reflux Disease) Recurrent Pulmonary Embolism (Hcc) Group Home (Current) Use of Anticoagulants Colonic Polyp History [...] A1C Franc Hills MD documented in this encounterSelect Medical Specialty [facility]08-16-2023 Miscellaneous Notes* Telephone Encounter - Kamila Eng [...] ablations. OK to send this information via 2CRisk. Patient instructed to hold the following medication(s) prior to the procedure: - Coumadin for 5 days prior - ASA 81 for 2 days prior A request to hold Coumadin and ASA81 will be sent to the patient's PCP. Pre-procedure instructions reviewed over telephone and a list of instructions were sent via [employer]isk. Patient verbalized understanding with no additional questions [...] is the patient's name. My phone number [phone]. I forgot all the other stuff you [...] if someone would please call me at [phone] and once again it's Alex Brooks and [...] is Alex Brooks. My phone number is [phone]. I live in [place] by the way I made an appointment [...] me, does he have enough information. Should [place] ahead and schedule it. So I have [...] Level: L4-5 and L5-S1 documented in this encounterSelect Medical Specialty [facility]08-15-2023 Miscellaneous Notes* Telephone Encounter - Betzaida Kiser Ma - 11/18/2022 10:53 AM EDT History of injection/rfa: 05/10/2020 - Bilateral L4-5 and L5-S1 Lumbar Facet Medial Branch Nerve Radiofrequency Ablation under fluoroscopy - CPT 28622 and 24757 03/20/2014 - Left L4-5 and L5-S1 Lumbar Facet Medial Branch Nerve Radiofrequency Ablation under fluoroscopy - CPT 04759 and 03800 03/13/2014 - Right L4-5 and L5-S1 Lumbar Facet Medial Branch Nerve Radiofrequency Ablation under fluoroscopy - CPT 12503 and 33293 09/02/2011 - Left L4-5 and L5-S1 Lumbar Facet Medial Branch Nerve Radiofrequency Ablation under fluoroscopy - CPT 05956 and 33360 08/07/2011 - Right L4-5 and L5-S1 Lumbar Facet Medial Branch Nerve Radiofrequency Ablation under fluoroscopy - CPT 24121 and 54596 05/19/2011 - Bilateral L4-5 and L5-S1 Lumbar Facet Medial Branch Block under fluoroscopy CPT - 32872 and 20867 05/05/2011 - Bilateral L4-5 and L5-S1 Lumbar Facet Medial Branch Block under fluoroscopy CPT - 73764 and 72150 documented in this encounterSelect Medical [facility]08-09-2023 Miscellaneous Notes* Telephone Encounter - Cyndy Whelan [...] advise. Corrina Velarde LPN documented in this encounterSelect Medical Specialty [facility]08-09-2023 Miscellaneous Notes* Telephone Encounter - Carlos Rodriguez [...] will keep us updated. documented in this encounterSelect Medical Specialty [facility]08-08-2023 Miscellaneous Notes* Telephone Encounter - Sara Baxter [...] appt. 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 Graciela Parker RN documented in this encounterSelect Medical Specialty [facility]08-03-2023 Miscellaneous Notes* Telephone Encounter - Tala Torres LPN - 11/06/2022 1:45 PM EDT Patient said his last rx was only 150 tablets filled on 08/25/2022. He is calling [facility] to check with them since computer shows 240 tablet with one refill on 08/25/2022. Still wants request sent to PCP. * Telephone Encounter - Kari Broines LPN - 11/04/2022 3:52 PM EDT Patient [...] you. Kari Briones LPN documented in this encounterSelect Medical Specialty [facility]08-03-2023 Miscellaneous Notes* Telephone Encounter - Kristina Youssef [...] message. Maribel Oden LPN documented in this encounterSelect Medical Specialty [facility]07-26-2023 Miscellaneous Notes* Telephone Encounter - Graciela Parker [...] alcohol for 5 days. documented in this encounterSelect Medical Specialty [facility]07-13-2023 Miscellaneous Notes* Telephone Encounter - Jennifer Mejia MA - 10/16/2022 6:01 PM EDT Patient active MyChart. Patient notified via [employer] message. Jennifer Mejia MA * Telephone Encounter [...] if there is a problem. Maribel Oden [facility] * Telephone Encounter - Tala Torres [...] time he isasking for this. Patient uses [facility] for his pharmacy. Can send patient my chart message with response. Please advise documented in this encounterSelect Medical Specialty [facility]06-29-2023 History of Present illness Narrative* Anette Omalley [...] and facet degenerative change. Moderate spinal stenosis. Fpgy-kb-xxlaubqu foraminal narrowing. L4-L5: Loss of disc height, disc bulging, and prominent facet degenerative change. Severe spinal stenosis, worsened when compared with the previous exam. (5:19; 2:11). Yuox-xw-odspwiyu right and severe left foraminal narrowing. L5-S1: [...] Health Provider or Pain Management Provider at [facility]? No If answer is YES please schedule directly with surgeon, triage does not need to be completed. Is this a self-referral No If not, who is the Referring Provider Franc Hills MD, order in [facility] Is this a 2nd opinion? No Were you offered surgery? No MRI/CT/myelogram within 12 months? Yes If NO, please refer to medical spine or PCP to complete above imaging, triage does not need to be completed If YES, please ask for the name/address of the facility where the MRI/CT/myelogram was completed: [facility] MRI/CT/myelogram viewable in [facility]: Yes If not, please provide [phone] to fax in imaging reports for review. [...] where the surgery was completed: Additional Comments [phone] documented in this encounterSelect [facility]06-27-2023 Miscellaneous Notes* Telephone Encounter - Kari Briones [...] is still waiting to hear back from on scheduling with correct Spinal Provider. He [...] and result): 2.4 09/23/2022 documented in this encounterSelect Medical Specialty [facility]06-22-2023 Miscellaneous Notes* Telephone Encounter - Jennifer Mejia MA - 09/25/2022 7:06 PM EDT [...] Hills for Consult for Spine Surgery. A bump grader operator has made two appointments for patient and he is asking if these two appointments are appropriate for the consult order: Bilingual Patient Support Caseworker made appt for pt to see Dr. Mckinley Leal with Pain Mgmt in [place]. This appt is for tomorrowand pt asking if this appt is appropriate for the consult order placed today? Bilingual Patient Support Caseworker made appt for pt to also see Sunny Orta PA-C of Spine Med in [place] for next month. Pt asking if this [...] be? Molly Ann RN documented in this encounterSelect Medical [facility]ty [facility]06-15-2023 Miscellaneous Notes* Telephone Encounter - Franc Hills [...] put in not sure if by Gabby mR LPN. * Telephone Encounter - Franc Hills [...] and message was left. documented in this encounterSelect Medical [facility]06-08-2023 Miscellaneous Notes* Telephone Encounter - Cyndy Whelan [...] week. . * Telephone Encounter - Antoinette Maedows RN - 09/11/2022 11:32 AM EDT Patient [...] advise, Antoinette Meadows RN documented in this encounterSelect Medical [facility]06-07-2023 Miscellaneous Notes* Telephone Encounter - Kari Briones [...] you. Kari Briones LPN documented in this encounterSelect Medical Specialty [facility]05-31-2023 Miscellaneous Notes* Telephone Encounter - Gabby Rm [...] advise, Antoinette Meadows RN documented in this encounterSelect Medical Specialty [facility]05-08-2023 History of Present illness Narrative* Franc Hills MD - 08/11/2022 3:35 PM EDT This note was created using Graffitiriter. 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) Social History Tobacco Use Smoking status: Former [...] week. Franc Hills MD documented in this encounterSelect Medical Specialty [facility]05-05-2023 History of Present illness Narrative* Mj Dos Santos MD - 08/08/2022 10:45 AM EDT Heart, Vascular & Thoracic [place] Department of Cardiovascular Medicine VIRTUAL VIDEO VISIT [...] visit. Either the patient or their legal career services representative has been informed of the risks [...] paroxysmal nocturnal dyspnea, pedal edema. Home blood [id number]. Recently cut down his alcohol intake as [...] to knees, as of 2008 --- in [place], neurologist thought related to alcohol; Has had [...] PE perspective, he has an indication for snf anticoagulation. Regarding his history of PAD, Carotid Disease, presumed coronary disease - his BP is well controlled, LDL < 70. While he is on aspirin, can consider discontinuing it in the future given stable disease and his indication for snf anticoagulation. Patient will follow up with me [...] and Zabrina Hylton Department of Cardiovascular Medicine [address], [place] [address] Appointments: (Cardiology); (Vascular Medicine) This note was dictated using a voice recognition software. Please excuse any inadvertent typographical/grammatical/syntax errors that may have escaped the final proofread. Please don't hesitate to contact my office for any clarification. documented in this encounterSelect Medical Specialty [facility]05-03-2023 Miscellaneous Notes* Telephone Encounter - Kari Briones [...] bruising. No missed doses. documented in this encounterSelect Medical Specialty Hospital [facility]04-26-2023 Miscellaneous Notes* Telephone Encounter - Kari Briones LPN - 07/30/2022 1:07 PM EDT TC Patient, given below recommendation, he asked for the dosage instructions be sent to [facility]. Done. Kari Briones LPN * Telephone Encounter [...] back. Maribel Oden LPN documented in this encounterSelect Medical Specialty [facility]04-25-2023 Miscellaneous Notes* Telephone Encounter - Tala Torres LPN - 07/29/2022 3:25 PM EDT Phoned patient and went over notes from Sara Baxter BREAKDOWN MILL OPERATOR with understanding. Patient plans to do Dr [...] with reply. Thank you. documented in this encounterSelect Medical Specialty [facility]04-12-2023 Miscellaneous Notes* Telephone Encounter - Cyndy Whelan [...] say he is eating a lot of tongan foods and likes lots of hot sauce on his food. documented in this encounterSelect Medical Specialty Hospital [facility]04-05-2023 Miscellaneous Notes* Telephone Encounter - Kristina Youssef [...] Information or narrative: no documented in this encounterSelect Medical Specialty [facility]03-29-2023 Miscellaneous Notes* Telephone Encounter - Cyndy Whelan RN - 07/02/2022 12:46 PM EDT Pt called and is notified of providers message and instructions. Pt voices understanding. Cyndy Whelan RN * Telephone Encounter - Franc Hills MD - 07/02/2022 12:41 PM EDT Take [...] diet changes, except he hasbeen eating more tongan, denies alcohol consumption, has not been on any antibiotics, no unusual bleeding or bruising. documented in this encounterSelect Medical Specialty [facility]03-15-2023 Miscellaneous Notes* Telephone Encounter - Kari Briones [...] advise, Antoinette Meadows RN documented in this encounterSelect Medical Specialty [facility]03-14-2023 Miscellaneous Notes* Telephone Encounter - Tammie Munguia [...] - 5.1 mmol/L 4.3 documented in this encounterSelect Medical Specialty Hospital [facility]03-06-2023 Miscellaneous Notes* Telephone Encounter - Cyndy Whelan [...] advise, Tammie Munguia RN documented in this encounterSelect Medical Specialty Hospital [facility]03-01-2023 Miscellaneous Notes* Telephone Encounter - Julieth Jeffry [facility] - 06/04/2022 11:53 AM EST Patient called [...] like to get the Echo done in [facility]. Call back number: [phone] Thank you documented in this encounterSelect Medical Specialty Hospital [facility]02-28-2023 Miscellaneous Notes* Telephone Encounter - Celia Sanders [...] Please advise. Thank you. documented in this encounterSelect Medical Specialty Hospital - [facility]02-27-2023 History of Present illness Narrative* Franc Hills MD - 06/02/2022 5:02 PM EST Alex Brooks is a 76 year old male here for a Medicare Subsequent Annual Wellness Visit Health Risk Assessment In general, health is: Good Concerns with balance: More than half the days Concerns with teeth or dentures: Not at all Concerns with sexual function: Not at all [place] anxious, stressed, angry, irritable, lonely, isolated, or [...] Magaña MD, ophthalmology. Harry Nuñez, optometry. Iglesia Anasri MD, vascular surgery. Medical/Family history review Reviewed [...] PM EST This note was created using [email or web address]. Subjective Patient presents with: Medicare Wellness Exam Recheck Alex Brooks is a 76 year old male. His hypertension was labile. He followed with cardiology at [facility], but was considering transferring [facility] cardi[facility] here He is on Percocet [...] (Gastroesophageal Reflux Disease) Recurrent Pulmonary Embolism (Hcc) Group Home (Current) Use of Anticoagulants Colonic Polyp History [...] A1C Franc Hills MD documented in this encounterSelect Medical Specialty [facility]02-27-2023 Miscellaneous Notes* Telephone Encounter - Joce Schmid Ma - 06/02/2022 4:06 PM EST MARITZA: 02/03/2022 Last refill: 03/18/2022 QTY: 42 Refills: 0 documented in this encounterSelect Medical Specialty Hospital [facility]02-27-2023 Miscellaneous Notes* Telephone Encounter - Joce Schmid [...] pharmacy. Joce Schmid Ma documented in this encounterSelect Medical Specialty Hospital [facility]02-20-2023 Miscellaneous Notes* Telephone Encounter - Julieth Teran [facility] - 05/26/2022 12:53 PM EST Patient is calling because he would like to request having an ECHO when he goes in on 06/04, if possible, for his labs at [place] (if same date doesn't work, check with patient for a different date0. He said it's been a year since his last one and he would like to be checked again. I told him we would check with Dr. Dos Santos and Raiza would call him back. Julieth Teran documented in this encounterSelect Medical Specialty Hospital [facility]02-16-2023 Miscellaneous Notes* Telephone Encounter - Maribel Oden [...] to confirm per pt. documented in this encounterSelect Medical Specialty Hospital [facility]02-15-2023 Miscellaneous Notes* Telephone Encounter - Tammie Munguia [...] understanding. Tammie Munguia RN documented in this encounterSelect Medical Specialty Hospital - [facility]02-02-2023 Miscellaneous Notes* Telephone Encounter - Tala Torres [...] 05-14-22. Maribel Oden LPN documented in this encounterSelect Medical Specialty Hospital - [facility]01-19-2023 Miscellaneous Notes* Telephone Encounter - Kari Briones [...] phone patient with reply. documented in this encounterSelect Medical Specialty Hospital - [facility]01-19-2023 Miscellaneous Notes* Telephone Encounter - Tala Torres [...] alcohol in 4-5 days. documented in this encounterSelect Medical Specialty Hospital - [facility]01-11-2023 Miscellaneous Notes* Telephone Encounter - Joce Schmid [...] throat Maribel Oden LPN documented in this encounterSelect Medical Specialty Hospital - [facility]01-11-2023 Miscellaneous Notes* Telephone Encounter - Franc Hills [...] advise patient. Thank you. documented in this encounterSelect Medical Specialty Hospital - [facility]01-06-2023 History of Present illness Narrative* Kristina Youssef LPN - 04/11/2022 2:39 PM EST PCP ADDRESSED IN PHONE ENCOUNTER POT CALLED TOO. Hold coumadin today only. Resume coumadin 10 mg daily after holding for one day. INR in 3 days. * Julieth Castle RN - 04/11/2022 12:15 PM EST patient had inr completed at [facility] patients inr is 4.1 (patients inr [...] up inr on 04/18/22 documented in this encounterSelect Medical Specialty [facility]01-06-2023 Miscellaneous Notes* Telephone Encounter - Kristina Youssef [...] days, no diet changes (ate a large labor representative salad last night), no recent AB's, no unusual bleeding or bruising. Does take a daily lowdose asa. documented in this encounterSelect Medical Specialty [facility]01-03-2023 Miscellaneous Notes* Telephone Encounter - Graciela Parker RN - 04/08/2022 9:27 AM EST Patient calling to ensure his MC message to PCP is understood. He states he does not need his potassium script refilled at this time. He is only requesting his potasssium CL ER be changed to [facility] for future orders due to low cost. Thank you. documented in this encounterSelect Medical Specialty [facility]12-30-2022 Miscellaneous Notes* Telephone Encounter - Alvin He [...] of Last Labs: 11/13/2021 documented in this encounterSelect Medical Specialty Hospital - [facility]12-28-2022 Miscellaneous Notes* Telephone Encounter - Kari Briones [...] advise, Tammie Munguia RN documented in this encounterSelect Medical Specialty Hospital - [facility]12-15-2022 Miscellaneous Notes* Telephone Encounter - Tammie Munguia RN - 03/20/2022 2:00 PM EST Patient called and wanted to let provider know that the reason why he had cancelled INR on Thursday was because he is having it done at [facility] instead. Tammie Munguia RN documented in this encounterSelect Medical Specialty Hospital - [facility]12-14-2022 Miscellaneous Notes* Telephone Encounter - Sara Baxter APRN.CNP - 03/19/2022 3:47 PM EST Addressed in phone encounter Sara Baxter APRN.KAYLA documented in this encounterSelect Medical Specialty Hospital - [facility]12-13-2022 Miscellaneous Notes* Telephone Encounter - Maribel Oden [...] he is going in for colonoscopy at [facility] with Dr. Rosenberg on Thursday03/24/2022. Patient [...] applicable Please advise. Thank you. Tala Quattrocchi STRINGED INSTRUMENT TUNER Patient requesting PCP to advise. documented in this encounterSelect Medical Specialty Hospital - [facility]12-13-2022 Miscellaneous Notes* Telephone Encounter - Franc Hills [...] reports about 2.5 yrs ago Sara Baxter, INFO SPECIALIST reduced percocet dose from 10 mg to [...] has. Brandi Lambert LPN documented in this encounterSelect Medical Specialty Hospital - [facility]12-08-2022 Miscellaneous Notes* Telephone Encounter - Franc Hills [...] 01/16/22. Corrina Velarde LPN documented in this encounterSelect Medical Specialty Hospital - [facility]12-01-2022 History of Present illness Narrative* Franc Hills MD - 03/06/2022 6:30 PM EST Ok. * Julieth Castle RN - 03/06/2022 12:24 PM EST patient had inr completed at [facility] patients inr is 2.8 (patients inr [...] for follow up INR. documented in this encounterSelect Medical Specialty Hospital - [facility]11-15-2022 History of Present illness Narrative* Julieth Castle RN - 02/18/2022 4:[address] edwards she agrees with information * Julieth Castle RN - 02/18/2022 1:03 PM EST patient had inr completed at [facility] patients inr is 2.6 (patients inr [...] for follow up INR. documented in this encounterSelect Medical Specialty Hospital [facility]11-15-2022 Miscellaneous Notes* Telephone Encounter - Julieth Castle RN - 02/18/2022 1:06 PM EST Patient is a new patient to the [place] [facility] and we are needing new standing orders for testing. Orders have been pended for review and file if able. CC only needs called if orders cannot be filed. Thanks documented in this encounterSelect Medical Specialty Hospital [facility]11-08-2022 Miscellaneous Notes* Telephone Encounter - Kristina Youssef LPN - 02/11/2022 9:02 AM EST Pt called in and spoke to a triage nurse. He is requesting to change back to Dr. Hills as pcp. Reviewed with Dr. Hills. He is fine with this. Pcp field change back to Dr. Hills. documented in this encounterSelect Medical Specialty Hospital [facility]10-31-2022 Miscellaneous Notes* Telephone Encounter - Maribel Oden [...] back. Molly Ann RN documented in this encounterSelect Medical Specialty Hospital - [facility]10-31-2022 History of Present illness Narrative* Bonnie Sharif APRN.SMALL ARMS REPAIRER - 02/03/2022 12:53 PM EDT SUBJECTIVE: DEPRESSION ASSESSMENT Never done HPI Alex Brooks is a 76 year old male. 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 Mj Dos Santos MD, cardiology 08/2021 Dr Rosenberg colonoscopy 03/24/2022 [facility]. 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 Asking for a call and GreenSandhart message. * Telephone Encounter - Gabby Rm LPN - 01/31/2022 1:39 PM EDT Last INR: 2.8 Current dose of coumadin is: 01/26/22 patient took 12.5 mg and then 10 mg all other days. Last date of dose change: 01/24/22. Previous INR (date and result): 01/24/22 2.4 Additional Clinical Information or narrative: no documented in this encounterSelect Medical Specialty Hospital [facility]10-22-2022 Miscellaneous Notes* Telephone Encounter - Rosalia Guerrero Ma - 01/25/2022 8:40 AM EDT Patient notified via MOMENTFACE SROhart encounter where he inquired about INR * [...] new instructions. * Telephone Encounter - Rosalia Geurrero Ma - 01/24/2022 1:15 PM EDT Patient [...] 01/14 Graciela Parker RN documented in this encounterSelect Medical Specialty Hospital - [facility]10-19-2022 Miscellaneous Notes* Telephone Encounter - Franc Hills [...] effect his INR results. documented in this encounterSelect Medical Specialty Hospital [facility]10-13-2022 Miscellaneous Notes* Telephone Encounter - Maribel Oden [...] pm today. Please advise documented in this encounterSelect Medical Specialty Hospital - [facility]10-12-2022 Miscellaneous Notes* Telephone Encounter - Tammie Munguia [...] tooth extraction on . documented in this encounterSelect Medical Specialty Hospital - [facility]10-05-2022 Miscellaneous Notes* Telephone Encounter - Cyndy Whelan [...] mail Corrina Velarde LPN documented in this encounterSelect Medical Specialty Hospital - [facility]10-04-2022 Miscellaneous Notes* Telephone Encounter - Kari Briones LPN - 01/07/2022 11:10 AM EDT Patient notified of below dosage recommendation, verbalized understanding. Per Patient's request, sent instructions through 2CRisk. Anticoag Tracker updated. Kari Briones LPN * [...] Please call and advise documented in this encounterSelect Medical Specialty Hospital - [facility]09-30-2022 Miscellaneous Notes* Telephone Encounter - Graciela Parker [...] advise patient. Thank you. documented in this encounterSelect Medical Specialty Hospital - [facility]09-29-2022 Miscellaneous Notes* Telephone Encounter - Cyndy Whelan [...] his bad tooth. Uses [facility] in [place]. Please advise patient. Thank you. documented in this encounterSelect Medical Specialty Hospital - [facility]09-28-2022 Miscellaneous Notes* Telephone Encounter - Saar Baxter APRN.CNP - 01/01/2022 11:07 AM EDT Duplicate, addressed in another phone encounter Sara Baxter APRN.CNP * Telephone Encounter - Kari Briones LPN - 12/31/2021 2:02 PM EDT Form received. Given to covering provider to review. Kari Briones LPN * Telephone Encounter - Tammie Munguia RN - 12/31/2021 12:22 PM EDT Patient calls and states that he just saw Dr. [facility] from [facility]. Patient reports that Dr. Justice's office just faxed over forms requesting provider's instructions on how long patient needs to be off of coumadin before patient has tooth extraction done. Tooth extraction will not be scheduled until instructions are received. Please review and advise, Tammie Munguia RN documented in this encounterSelect Medical Specialty Hospital - [facility]09-22-2022 Miscellaneous Notes* Telephone Encounter - Ramila Zapata [...] only, then back to 10 mg everyday axkpie29.5 mg on Thursday. Last date of dose change: 12/11/21. Previous INR (date and result): 3.9 Additional Clinical Information or narrative: yes: Denies any missed doses, no unusual bleeding andbruising, no recent antibiotic use, no diet changes and has not drank any alcohol 4-[facility] days [facility] documented in this encounterSelect Medical Specialty [facility]09-15-2022 History of Present illness Narrative* Iglesia Ansari MD - 12/19/2021 4:48 PM EDT Carotid duplex unchanged from prior. Repeat in 2 years. Iglesia Ansari MD documented in this encounterSelect Medical Specialty Hospital - [facility]09-14-2022 Miscellaneous Notes* Telephone Encounter - Rosalia Coffman Sec - 12/18/2021 9:12 AM EDT Mr. Brooks had follow-up imagine done of his carotids (US) done yesterday and he states he received the results in [facility] and the results appear to be the same as they were in 2020. Mr. Brooks would like to know if he would still need to keep the virtual visit on 12/[address] Ansari? Rosalia Coffman Business Investor documented in this encounterSelect Medical Specialty Hospital - [facility]09-14-2022 Miscellaneous Notes* Telephone Encounter - Mani Edwards [...] you. Kari Briones LPN documented in this encounterSelect Medical Specialty Hospital - [facility]09-13-2022 Miscellaneous Notes* Telephone Encounter - Parvin Ramirez [...] has changed since the appt. below. # [phone] Patient is not available today from 2-4pm Assessment & Plan Kvng Magaña MD filed [...] that he did order his glasses from [place]. Alex Brooks [phone] FV-06/24/21 LV-12/10/21 Assessment & Plan Kvng Magaña [...] return precautions with AG. documented in this encounterSelect Medical Specialty Hospital [facility]09-13-2022 Miscellaneous Notes* Telephone Encounter - Kari Briones LPN - 12/17/2021 3:26 PM EDT Called Pharmacy, Patient has refill of Potassium, it is to early to fill. Patient can fill 01/02/2022. Kari Briones LPN documented in this encounterSelect Medical Specialty [facility] - [facility]09-08-2022 Miscellaneous Notes* Telephone Encounter - Kristina Youssef [...] dose and pt findings. documented in this encounterSelect Medical Specialty Hospital [facility]09-07-2022 Miscellaneous Notes* Telephone Encounter - Joce Schmid [...] not one. Thank you. documented in this encounterSelect Medical Specialty Hospital - [facility]09-06-2022 History of Present illness Narrative* Kvng Magaña [...] of its relevant components. documented in this encounterSelect Medical Specialty Hospital - [facility]08-25-2022 Miscellaneous Notes* Telephone Encounter - Kristina Youssef [...] message. Antoinette Meadows RN documented in this encounterSelect Medical Specialty Hospital - [facility]08-24-2022 Miscellaneous Notes* Telephone Encounter - Kari Briones [...] you. Kari Briones LPN documented in this encounterSelect Medical Specialty Hospital - [facility]08-22-2022 Miscellaneous Notes* Telephone Encounter - Kari Briones [...] you. Kari Briones LPN documented in this encounterSelect Medical Specialty Hospital - [facility]08-11-2022 Miscellaneous Notes* Telephone Encounter - Kristina Youssef [...] get message. Thank you. documented in this encounter[facility] History of Present illness Narrative* Franc Hills MD - 11/13/2021 2:53 PM EDT This note was created using Graffitiriter. 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 Franc Hills MD documented in this encounterSelect [facility]-2022 Instructions* Patient Instructions* Micah Rosenberg MD - [...] If you do not have a responsible trailer tank truck driver (family member or friend) with you [...] If you do not have a responsible trailer tank truck driver (family member or friend) withyou to take you home, your exam cannot be done with sedation and will be cancelled. Please bring a list of all of your current medications, including any Hvlg-bhk-Cktelzx medications with you. Medications If you take [...] your exam. 2 03/2019 documented in this encounterSelect [facility] History of Present illness Narrative* Micah Rosenberg [...] to knees, as of 2008 --- in [place], neurologist thought related to alcohol; Has had [...] entered by the nurse and reviewed by mn Nursing Notes: Katia Colonz 11/12/2021 1:18 PM [...] endoscopy I plan for monitored anesthetic care.at [facility] Diagnoses: (Z86.010) Personal history of colonic polyps (primary encounter diagnosis) My findings have been communicated to Dr. Franc Hills MD via shared medical record. This note will be forwarded to Dr. Franc Hills MD. Return to Clinic: The patient is instructed to follow-up with me 1 week post operatively. Micah Rosenberg III, MD documented in this encounterSelect [facility]-2022 Nurse Note* Katia Colonz - 11/12/2021 1:11 [...] Colonoscopy: 2018 Katia Clayton documented in this encounterSelect [facility]-30-2022 Miscellaneous Notes* Telephone Encounter - Celia Sanders [...] be 2.5. Please advise. documented in this encounterSelect [facility]07-22-2022 Miscellaneous Notes* Telephone Encounter - Rosalia Hernandez - 10/25/2021 3:31 PM EDT Mr. Ordonez has a follow-up appointment scheduled with Dr. Ansari in December. The patient states that ergonomics engineer parking is such a headache that it took him an extended period of time to get his parked and even longer for them to bring the car after the appointment was over. He would like to know if he can have the ultrasound done at [place] and follow- up virtually? Rosalia Coffman Business Investor documented in this encounterSelect [facility]07-13-2022 Miscellaneous Notes* Telephone Encounter - Franc Hills [...] with pcp. Please review. documented in this encounterSelect [facility]07-13-2022 History of Present illness Narrative* Franc Hills MD - 10/16/2021 4:07 PM EDT This note was created using ClearServe. Subjective Alex Brooks is a 76 year [...] Disease) Recurrent Pulmonary Embolism (Hcc) External Hemorrhoid Parts Puller (Current) Use of Anticoagulants Colonic Polyp History [...] encounter. Franc Hills MD documented in this encounterSelect [facility]2022 Miscellaneous Notes* Telephone Encounter - Molly Ann RN - 10/14/2021 12:28 PM EDT Patient calling to say he has had some neck and shoulder pain after his fall. Advised ER follow up appointment. Scheduled 10/16 with PCP. Molly Ann RN documented in this encounterSelect [facility]06-30-2022 Miscellaneous Notes* Telephone Encounter - Kristina Youssef [...] wanted ER visit to be obtained from [facility] for provider to look at. Sent [...] on antibiotics. Pt report he was in [facility] ER 09/28 and had bruises on his ribs that they x-rayed,from a fall. documented in this encounterSelect [facility]06-29-2022 Miscellaneous Notes* Telephone Encounter - Maribel Oden [...] you. Maribel Oden LPN documented in this encounterSelect [facility]06-20-2022 Miscellaneous Notes* Telephone Encounter - Kristina Youssef LPN - 09/23/2021 3:32 PM EDT Images from the original note were not included. Prior authorization approved Payer: [employer] [phone] CaseId:[id number];Status:Approved;Review Type:Prior Auth;Coverage Start Date:09/09/2021;Coverage End Date:09/23/2022; Approval Details Authorized from September 09, 2021 to September 23, 2022 * Telephone Encounter - Kristina Youssef LPN - 09/23/2021 9:48 AM EDT Electronic PA completed for lorazepam. documented in this encounterSelect [facility]06-20-2022 Instructions* Patient Instructions* Teri Gruber APRN.CNP - 09/23/2021 9:40 AM EDT Call your insurance and inquire if you will need a referral for a cloth layer. Would recommend seeing dentist as well. documented in this encounterSelect [facility]06-20-2022 History of Present illness Narrative* Teri Gruber [...] to knees, as of 2008 --- in [place], neurologist thought related to alcohol; Has had [...] ICD10: K06.8 (primary diagnosis) Recommend dentist and cloth layer. Severe disease and dental caries. 2. Periodontal disease - ICD9: 523.9, ICD10: K05.6 Recommend dentist and cloth layer. Severe disease and dental caries. 3. Chronic low back pain without sciatica, unspecified back pain laterality - ICD9: 724.2, 338.29, ICD10: M54.50, G89.29 Recommend dentist and cloth layer. Severe disease and dental caries. Refill given. - OXYCODONE-ACETAMINOPHEN 5 MG-325 MG TABLET Teri Gruber APRN.INFO SPECIALIST PDMP website checked and validated. All prescriptions have been APPROPRIATELY filled. No suspiciousactivity was identified. 09/23/2021 by Teri Gruber CNP. documented in this encounterSelect [facility]06-17-2022 Miscellaneous Notes* Telephone Encounter - Tala Torres [...] rx runs out tomorrow. documented in this encounterSelect [facility]06-15-2022 Miscellaneous Notes* Telephone Encounter - Joce Schmid [...] pt findings are negative. documented in this encounterSelect [facility]06-01-2022 Miscellaneous Notes* Telephone Encounter - Joce Schmid [...] no change in diet. documented in this encounterSelect [facility]06-01-2022 Miscellaneous Notes* Telephone Encounter - Kari Briones [...] acceptable. Corrina Velarde LPN documented in this encounterSelect Medical [facility]05-20-2022 Miscellaneous Notes* Telephone Encounter - Franc Hills [...] system. Antoinette Meadows RN documented in this encounterSelect [facility]05-19-2022 Miscellaneous Notes* Telephone Encounter - Molly Ann [...] had taken 7.5 mg documented in this encounterSelect [facility]05-19-2022 Instructions* Patient Instructions* Franc Hills MD - 08/22/2021 6:34 PM EDT COUMADIN 10 MG MONDAYS THRU FRIDAYS. 7.5 MG SATURDAYS AND SUNDAYS. INR IN 2 WEEKS. documented in this encounterSelect [facility]05-19-2022 History of Present illness Narrative* Franc Hills MD - 08/22/2021 5:36 PM EDT This note was created using ClearServe. Subjective Alex Brooks is a 75 year old male. He saw the BREAKDOWN MILL OPERATOR 1.5 weeks ago, and was treated for [...] lower this afternoon. He just saw his nuclear process engineer a week ago and no changes were [...] Disease) Recurrent Pulmonary Embolism (Hcc) External Hemorrhoid Group Home (Current) Use of Anticoagulants Colonic Polyp History [...] TABLET Franc Hills MD documented in this encounterSelect [facility]05-17-2022 Miscellaneous Notes* Telephone Encounter - Franc Hills MD - 08/20/2021 6:00 PM EDT Noted. * Telephone Encounter - Corrina Velarde LPN - 08/20/2021 10:07 AM EDT Pt calling to report he tested NEG on a government issued home covid this this am. Pt is asymptomatic but tested himself because he is around many nurses. Corrina Velarde LPN documented in this encounterSelect [facility]05-13-2022 Instructions* Patient Instructions* Mj Dos Santos MD - 08/16/2021 1:48 PM EDT 1) Continue current medications 2) Encourage physical activity - 30mins x 5 times a week 3) Can inquire about Xarelto 10mg daily from [facility]. Maybe able to switch to that in the future documented in this encounterSelect [facility]05-13-2022 History of Present illness Narrative* Mj Dos Santos MD - 08/16/2021 1:30 PM EDT Images from the original note were not included. [facility] Department of Cardiovascular Medicine SECTION OF CLINICAL CARDIOLOGY OUTPATIENT VISIT DATE August 15, 2021 OUTPATIENT VISIT TYPE ESTABLISHED PRIMARY CARE PHYSICIAN: Franc Hills [address] [place] [address] REFERRING PHYSICIAN: Mj Dos Santos [address] [facility] [id number] CHIEF COMPLAINT: Multisite atherosclerotic disease HISTORY OF [...] to knees, as of 2008 --- in [place], neurologist thought related to alcohol; Has had [...] ABNORMAL ECG Confirmed by RAMON LINCOLN, LEEANN ([id number]) on 03/12/2021 11:59:07 AM Complete Results Component [...] CONTACT INFORMATION: Mj Dos Santos MD, MS, [facility] Department of Cardiovascular Medicine [address], [place] [address] Appointments: (Cardiology); (Vascular Medicine) This note was dictated using a voice recognition software. Please excuse any inadvertent typographical/grammatical/syntax errors that may have escaped the final proofread. Please don't hesitate to contact my office for any clarification. documented in this encounterSelect [facility]05-12-2022 Miscellaneous Notes* Telephone Encounter - Kristina Youssef LPN - 08/15/2021 12:15 PM EDT Pt notified. * Telephone Encounter - Franc Hills MD - 08/14/2021 6:09 PM EDT I don't think he can benefit from this. * Telephone Encounter - Tala Torres LPN - 08/14/2021 3:41 PM EDT Patient calling with question, he [facility] This last email has him wondering if this may help him? It was email concerning Neurology [facility]. Patient isasking if it would help his balance issues with his neuropathy? Patient said can send him a my chart message back, it would be easier. He thinks the email comes from main campus. Please advise documented in this encounterSelect [facility]05-09-2022 Miscellaneous Notes* Telephone Encounter - Franc Hills [...] you. Haydee Gracia LPN documented in this encounterSelect [facility]05-04-2022 Miscellaneous Notes* Telephone Encounter - Cyndy Whelan [...] of the 10 mg. documented in this encounterSelect [facility]04-20-2022 Miscellaneous Notes* Telephone Encounter - Alvin He [...] He is ^ veggies. documented in this encounterSelect [facility]04-08-2022 Miscellaneous Notes* Telephone Encounter - Joce Schmid [...] tomorrow. Pt would like to wait until BREAKDOWN MILL OPERATOR returns to ofc tomorrow to get her recommendation since shesaw pt for problem. Please advise. Corrina Velarde LPN documented in this encounterSelect [facility]04-06-2022 Miscellaneous Notes* Telephone Encounter - Kari Briones [...] advise. Molly Ann RN documented in this encounterSelect [facility]03-30-2022 History of Present illness Narrative* Sara Older, VINYL CUTTER.INFO SPECIALIST - 07/03/2021 12:47 PM EDT CC: Patient [...] to knees, as of 2008 --- in [place], neurologist thought related to alcohol; Has had [...] plan. Sara Baxter APRN.CNP documented in this encounterSelect [facility]03-24-2022 Miscellaneous Notes* Telephone Encounter - Kari Briones [...] INR goal is 2-3. documented in this encounterSelect [facility]10-13-2021 History of Past illness Narrative* Problem Noted [...] of this encounter (statuses as of 11/14/2021) [facility] History of Past illness Narrative* Problem Noted [...] of this encounter (statuses as of 11/14/2021) [facility] History of Past illness Narrative* Problem Noted [...] of this encounter (statuses as of 11/25/2021) [facility] History of Past illness Narrative* Problem Noted [...] of this encounter (statuses as of 11/27/2021) [facility] History of Past illness Narrative* Problem Noted [...] of this encounter (statuses as of 11/28/2021) [facility] History of Past illness Narrative* Problem Noted [...] of this encounter (statuses as of 12/10/2021) [facility] History of Past illness Narrative* Problem Noted [...] of this encounter (statuses as of 12/11/2021) [facility] History of Past illness Narrative* Problem Noted [...] of this encounter (statuses as of 12/12/2021) [facility] History of Past illness Narrative* Problem Noted [...] of this encounter (statuses as of 12/17/2021) [facility] History of Past illness Narrative* Problem Noted [...] of this encounter (statuses as of 12/17/2021) [facility] History of Past illness Narrative* Problem Noted [...] of this encounter (statuses as of 12/18/2021) [facility] History of Past illness Narrative* Problem Noted [...] of this encounter (statuses as of 12/18/2021) [facility] of Past illness Narrative* Problem Noted [...] of this encounter (statuses as of 12/19/2021) [facility] of Past illness Narrative* Problem Noted [...] of this encounter (statuses as of 12/26/2021) [facility] of Past illness Narrative* Problem Noted [...] of this encounter (statuses as of 01/01/2022) [facility] of Past illness Narrative* Problem Noted [...] of this encounter (statuses as of 01/02/2022) [facility] of Past illness Narrative* Problem Noted [...] of this encounter (statuses as of 01/03/2022) [facility] of Past illness Narrative* Problem Noted [...] of this encounter (statuses as of 01/07/2022) [facility] of Past illness Narrative* Problem Noted [...] of this encounter (statuses as of 01/08/2022) [facility] of Past illness Narrative* Problem Noted [...] of this encounter (statuses as of 01/15/2022) [facility] of Past illness Narrative* Problem Noted [...] of this encounter (statuses as of 01/16/2022) [facility] of Past illness Narrative* Problem Noted [...] of this encounter (statuses as of 01/22/2022) [facility] of Past illness Narrative* Problem Noted [...] of this encounter (statuses as of 01/25/2022) [facility] of Past illness Narrative* Problem Noted [...] of this encounter (statuses as of 02/01/2022) [facility] of Past illness Narrative* Problem Noted [...] of this encounter (statuses as of 02/01/2022) [facility] Narrative* Problem Noted [...] of this encounter (statuses as of 02/03/2022) [facility] illness Narrative* Problem Noted [...] of this encounter (statuses as of 02/03/2022) [facility] of [facility] illness Narrative* Problem Noted [...] of this encounter (statuses as of 02/12/2022) [facility] Narrative* Problem Noted [...] of this encounter (statuses as of 02/18/2022) [facility] Narrative* Problem Noted [...] of this encounter (statuses as of 02/19/2022) [facility] Narrative* Problem Noted [...] of this encounter (statuses as of 03/06/2022) [facility] Narrative* Problem Noted [...] of this encounter (statuses as of 03/13/2022) [facility] Narrative* Problem Noted [...] of this encounter (statuses as of 03/18/2022) [facility] Narrative* Problem Noted [...] of this encounter (statuses as of 03/18/2022) [facility] Narrative* Problem Noted [...] of this encounter (statuses as of 03/19/2022) [facility] Narrative* Problem Noted [...] of this encounter (statuses as of 03/26/2022) [facility] Narrative* Problem Noted [...] of this encounter (statuses as of 04/08/2022) [facility] Narrative* Problem Noted [...] of this encounter (statuses as of 04/09/2022) [facility] Narrative* Problem Noted [...] of this encounter (statuses as of 04/10/2022) [facility] Narrative* Problem Noted [...] of this encounter (statuses as of 04/12/2022) [facility] Narrative* Problem Noted [...] of this encounter (statuses as of 04/16/2022) [facility] Narrative* Problem Noted [...] of this encounter (statuses as of 04/17/2022) [facility] Narrative* Problem Noted [...] of this encounter (statuses as of 04/24/2022) [facility] Narrative* Problem Noted [...] of this encounter (statuses as of 04/24/2022) [facility] Narrative* Problem Noted [...] of this encounter (statuses as of 05/10/2022) [facility] Narrative* Problem Noted [...] of this encounter (statuses as of 05/18/2022) [facility] Narrative* Problem Noted [...] of this encounter (statuses as of 05/21/2022) [facility] Narrative* Problem Noted [...] of this encounter (statuses as of 05/22/2022) [facility] Narrative* Problem Noted [...] of this encounter (statuses as of 05/26/2022) [facility] Narrative* Problem Noted [...] of this encounter (statuses as of 06/03/2022) [facility] Narrative* Problem Noted [...] of this encounter (statuses as of 06/03/2022) [facility] Narrative* Problem Noted [...] of this encounter (statuses as of 06/04/2022) [facility] Narrative* Problem Noted [...] of this encounter (statuses as of 06/04/2022) [facility] Narrative* Problem Noted [...] of this encounter (statuses as of 06/05/2022) [facility] Narrative* Problem Noted [...] of this encounter (statuses as of 06/09/2022) [facility] Narrative* Problem Noted [...] of this encounter (statuses as of 06/17/2022) [facility] Narrative* Problem Noted [...] of this encounter (statuses as of 06/18/2022) [facility] Narrative* Problem Noted [...] of this encounter (statuses as of 07/02/2022) [facility] Narrative* Problem Noted [...] of this encounter (statuses as of 07/10/2022) [facility] Narrative* Problem Noted [...] of this encounter (statuses as of 07/17/2022) [facility] Narrative* Problem Noted [...] of this encounter (statuses as of 07/30/2022) [facility] Narrative* Problem Noted [...] of this encounter (statuses as of 07/30/2022) [facility] Narrative* Problem Noted [...] of this encounter (statuses as of 08/06/2022) [facility] Narrative* Problem Noted [...] of this encounter (statuses as of 08/08/2022) [facility] Narrative* Problem Noted [...] of this encounter (statuses as of 08/12/2022) [facility] Narrative* Problem Noted [...] of this encounter (statuses as of 09/11/2022) [facility] Narrative* Problem Noted [...] of this encounter (statuses as of 09/03/2022) [facility] Narrative* Problem Noted [...] of this encounter (statuses as of 09/10/2022) [facility] Narrative* Problem Noted [...] of this encounter (statuses as of 09/19/2022) [facility] Narrative* Problem Noted [...] of this encounter (statuses as of 09/23/2022) [facility] History of Past illness Narrative* Problem Noted [...] of this encounter (statuses as of 09/26/2022) [facility] History of Past illness Narrative* Problem Noted [...] of this encounter (statuses as of 10/01/2022) [facility] History of Past illness Narrative* Problem Noted [...] of this encounter (statuses as of 10/02/2022) [facility] History of Past illness Narrative* Problem Noted [...] of this encounter (statuses as of 10/14/2022) [facility] History of Past illness Narrative* Problem Noted [...] of this encounter (statuses as of 10/17/2022) [facility] History of Past illness Narrative* Problem Noted [...] of this encounter (statuses as of 10/29/2022) [facility] History of Past illness Narrative* Problem Noted [...] of this encounter (statuses as of 11/06/2022) [facility] History of Past illness Narrative* Problem Noted [...] of this encounter (statuses as of 11/07/2022) [facility] History of Past illness Narrative* Problem Noted [...] of this encounter (statuses as of 11/10/2022) [facility] History of Past illness Narrative* Problem Noted [...] of this encounter (statuses as of 11/11/2022) [facility] History of Past illness Narrative* Problem Noted [...] of this encounter (statuses as of 11/11/2022) [facility] History of Past illness Narrative* Problem Noted [...] of this encounter (statuses as of 11/12/2022) [facility] History of Past illness Narrative* Problem Noted [...] of this encounter (statuses as of 11/13/2022) [facility] History of Past illness Narrative* Problem Noted [...] of this encounter (statuses as of 11/19/2022) [facility] History of Past illness Narrative* Problem Noted [...] of this encounter (statuses as of 11/19/2022) [facility] History of Past illness Narrative* Problem Noted [...] of this encounter (statuses as of 11/25/2022) [facility] History of Past illness Narrative* Problem Noted [...] (pulmonary embolism) 09/04/201111/2012 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 08/07/2011 04/13/2012 Lumbosacral spondylosis [...] of this encounter (statuses as of 12/02/2022) [facility] History of Past illness Narrative* Problem Noted [...] of this encounter (statuses as of 12/03/2022) [facility] History of Past illness Narrative* Problem Noted [...] of this encounter (statuses as of 12/04/2022) [facility] History of Past illness Narrative* Problem Noted [...] of this encounter (statuses as of 12/06/2022) [facility] History of Past illness Narrative* Problem Noted [...] of this encounter (statuses as of 12/09/2022) [facility] History of Past illness Narrative* Problem Noted [...] of this encounter (statuses as of 12/10/2022) [facility] History of Past illness Narrative* Problem Noted [...] of this encounter (statuses as of 12/10/2022) [facility] History of Past illness Narrative* Problem Noted [...] of this encounter (statuses as of 12/17/2022) [facility] History of Past illness Narrative* Problem Noted [...] of this encounter (statuses as of 12/17/2022) [facility] History of Past illness Narrative* Problem Noted [...] of this encounter (statuses as of 12/17/2022) [facility] History of Past illness Narrative* Problem Noted [...] of this encounter (statuses as of 12/25/2022) [facility] History of Past illness Narrative* Problem Noted [...] of this encounter (statuses as of 12/30/2022) [facility] History of Past illness Narrative* Problem Noted [...] of this encounter (statuses as of 12/30/2022) [facility] History of Past illness Narrative* Problem Noted [...] of this encounter (statuses as of 01/09/2023) [facility] History of Past illness Narrative* Problem Noted [...] of this encounter (statuses as of 01/10/2023) [facility] History of Past illness Narrative* Problem Noted [...] of this encounter (statuses as of 01/12/2023) [facility] History of Past illness Narrative* Problem Noted [...] of this encounter (statuses as of 01/14/2023) [facility] History of Past illness Narrative* Problem Noted [...] of this encounter (statuses as of 01/15/2023) [facility] History of Past illness Narrative* Problem Noted [...] of this encounter (statuses as of 01/20/2023) [facility] History of Past illness Narrative* Problem Noted [...] of this encounter (statuses as of 01/22/2023) [facility] History of Past illness Narrative* Problem Noted [...] of this encounter (statuses as of 01/22/2023) [facility] History of Past illness Narrative* Problem Noted [...] of this encounter (statuses as of 01/23/2023) [facility] History of Past illness Narrative* Problem Noted [...] of this encounter (statuses as of 01/30/2023) [facility] History of Past illness Narrative* Problem Noted [...] of this encounter (statuses as of 01/30/2023) [facility] History of Past illness Narrative* Problem Noted [...] of this encounter (statuses as of 02/04/2023) [facility] History of Past illness Narrative* Problem Noted [...] of this encounter (statuses as of 02/10/2023) [facility] History of Past illness Narrative* Problem Noted [...] of this encounter (statuses as of 02/10/2023) [facility] History of Past illness Narrative* Problem Noted [...] of this encounter (statuses as of 02/11/2023) [facility] History of Past illness Narrative* Problem Noted [...] of this encounter (statuses as of 02/18/2023) [facility] History of Past illness Narrative* Problem Noted [...] of this encounter (statuses as of 02/24/2023) [facility] History of Past illness Narrative* Problem Noted [...] of this encounter (statuses as of 02/27/2023) [facility] History of Past illness Narrative* Problem Noted [...] of this encounter (statuses as of 03/02/2023) [facility] History of Past illness Narrative* Problem Noted [...] of this encounter (statuses as of 03/05/2023) [facility] History of Past illness Narrative* Problem Noted [...] of this encounter (statuses as of 03/10/2023) [facility] History of Past illness Narrative* Problem Noted [...] of this encounter (statuses as of 03/19/2023) [facility] History of Past illness Narrative* Problem Noted [...] of this encounter (statuses as of 03/21/2023) [facility] History of Past illness Narrative* Problem Noted [...] of this encounter (statuses as of 03/25/2023) [facility] History of Past illness Narrative* Problem Noted [...] of this encounter (statuses as of 05/08/2023) [facility] History of Past illness Narrative* Problem Noted [...] of this encounter (statuses as of 05/08/2023) [facility] History of Past illness Narrative* Problem Noted [...] of this encounter (statuses as of 05/13/2023) [facility] History of Past illness Narrative* Problem Noted [...] of this encounter (statuses as of 05/14/2023) [facility] History of Past illness Narrative* Problem Noted [...] of this encounter (statuses as of 05/15/2023) [facility] History of Past illness Narrative* Problem Noted [...] of this encounter (statuses as of 05/18/2023) [facility] History of Past illness Narrative* Problem Noted [...] of this encounter (statuses as of 05/19/2023) [facility] History of Past illness Narrative* Problem Noted [...] of this encounter (statuses as of 05/22/2023) [facility] History of Past illness Narrative* Problem Noted [...] of this encounter (statuses as of 05/23/2023) [facility] History of Past illness Narrative* Problem Noted [...] (pulmonary embolism) 09/04/201111/2012 Degeneration of lumbar or chramaine mbosacral intervertebral disc 08/07/2011 04/13/2012 Lumbosacral spondylosis [...] of this encounter (statuses as of 05/25/2023) [facility] History of Past illness Narrative* Problem Noted [...] of this encounter (statuses as of 05/26/2023) [facility] History of Past illness Narrative* Problem Noted [...] of this encounter (statuses as of 05/26/2023) [facility] History of Past illness Narrative* Problem Noted [...] of this encounter (statuses as of 05/29/2023) [facility] History of Past illness Narrative* Problem Noted [...] of this encounter (statuses as of 05/30/2023) [facility] History of Past illness Narrative* Problem Noted [...] of this encounter (statuses as of 06/02/2023) [facility] History of Past illness Narrative* Problem Noted [...] of this encounter (statuses as of 06/02/2023) [facility] History of Past illness Narrative* Problem Noted [...] of this encounter (statuses as of 06/04/2023) [facility] History of Past illness Narrative* Problem Noted [...] of this encounter (statuses as of 06/04/2023) [facility] History of Past illness Narrative* Problem Noted [...] of this encounter (statuses as of 06/05/2023) [facility] History of Past illness Narrative* Problem Noted [...] of this encounter (statuses as of 06/08/2023) [facility] History of Past illness Narrative* Problem Noted [...] of this encounter (statuses as of 06/10/2023) [facility] History of Past illness Narrative* Problem Noted [...] of this encounter (statuses as of 06/11/2023) [facility] History of Past illness Narrative* Problem Noted [...] of this encounter (statuses as of 06/12/2023) [facility] History of Past illness Narrative* Problem Noted [...] of this encounter (statuses as of 06/12/2023) [facility] History of Past illness Narrative* Problem Noted [...] of this encounter (statuses as of 06/15/2023) [facility] History of Past illness Narrative* Problem Noted [...] of this encounter (statuses as of 06/15/2023) [facility] History of Past illness Narrative* Problem Noted [...] of this encounter (statuses as of 06/16/2023) [facility] History of Past illness Narrative* Problem Noted [...] of this encounter (statuses as of 06/19/2023) [facility] History of Past illness Narrative* Problem Noted [...] of this encounter (statuses as of 06/19/2023) [facility] History of Past illness Narrative* Problem Noted [...] of this encounter (statuses as of 06/23/2023) [facility] History of Past illness Narrative* Problem Noted [...] of this encounter (statuses as of 06/26/2023) [facility] History of Past illness Narrative* Problem Noted [...] of this encounter (statuses as of 06/29/2023) [facility] History of Past illness Narrative* Problem Noted [...] of this encounter (statuses as of 06/30/2023) [facility] History of Past illness Narrative* Problem Noted [...] of this encounter (statuses as of 07/07/2023) [facility] History of Past illness Narrative* Problem Noted [...] of this encounter (statuses as of 07/16/2023) [facility] History of Past illness Narrative* Problem Noted [...] of this encounter (statuses as of 07/16/2023) [facility] History of Past illness Narrative* Problem Noted [...] of this encounter (statuses as of 07/16/2023) [facility] History of Past illness Narrative* Problem Noted [...] of this encounter (statuses as of 07/17/2023) [facility] History of Past illness Narrative* Problem Noted [...] of this encounter (statuses as of 07/17/2023) [facility] History of Past illness Narrative* Problem Noted [...] of this encounter (statuses as of 07/20/2023) [facility] History of Past illness Narrative* Problem Noted [...] of this encounter (statuses as of 07/21/2023) [facility] History of Past illness Narrative* Problem Noted [...] of this encounter (statuses as of 07/21/2023) [facility] History of Past illness Narrative* Problem Noted [...] of this encounter (statuses as of 07/22/2023) [facility] History of Past illness Narrative* Problem Noted [...] of this encounter (statuses as of 07/24/2023) [facility] History of Present illness Narrative* Jennifer Gomes [...] 13, 2020 10:12 AM [facility] [place] of Past illness Narrative* Problem Noted [...] of this encounter (statuses as of 06/27/2021) [facility] History of Past illness Narrative* Problem Noted [...] of this encounter (statuses as of 07/03/2021) [facility] History of Past illness Narrative* Problem Noted [...] of this encounter (statuses as of 07/10/2021) [facility] History of Past illness Narrative* Problem Noted [...] of this encounter (statuses as of 07/12/2021) [facility] History of Past illness Narrative* Problem Noted [...] of this encounter (statuses as of 07/24/2021) [facility] History of Past illness Narrative* Problem Noted [...] of this encounter (statuses as of 08/07/2021) [facility] History of Past illness Narrative* Problem Noted [...] of this encounter (statuses as of 08/08/2021) [facility] History of Past illness Narrative* Problem Noted [...] of this encounter (statuses as of 08/12/2021) [facility] History of Past illness Narrative* Problem Noted [...] of this encounter (statuses as of 08/15/2021) [facility] History of Past illness Narrative* Problem Noted [...] of this encounter (statuses as of 08/16/2021) [facility] History of Past illness Narrative* Problem Noted [...] of this encounter (statuses as of 08/20/2021) [facility] History of Past illness Narrative* Problem Noted [...] of this encounter (statuses as of 08/22/2021) [facility] History of Past illness Narrative* Problem Noted [...] of this encounter (statuses as of 08/23/2021) [facility] History of Past illness Narrative* Problem Noted [...] of this encounter (statuses as of 08/23/2021) [facility] History of Past illness Narrative* Problem Noted [...] of this encounter (statuses as of 09/04/2021) [facility] History of Past illness Narrative* Problem Noted [...] of this encounter (statuses as of 09/04/2021) [facility] History of Past illness Narrative* Problem Noted [...] of this encounter (statuses as of 09/18/2021) [facility] History of Past illness Narrative* Problem Noted [...] of this encounter (statuses as of 09/20/2021) [facility] History of Past illness Narrative* Problem Noted [...] of this encounter (statuses as of 09/23/2021) [facility] History of Past illness Narrative* Problem Noted [...] of this encounter (statuses as of 09/23/2021) [facility] History of Past illness Narrative* Problem Noted [...] of this encounter (statuses as of 10/02/2021) [facility] History of Past illness Narrative* Problem Noted [...] of this encounter (statuses as of 10/03/2021) [facility] History of Past illness Narrative* Problem Noted [...] of this encounter (statuses as of 10/14/2021) [facility] History of Past illness Narrative* Problem Noted [...] of this encounter (statuses as of 10/16/2021) [facility] History of Past illness Narrative* Problem Noted [...] of this encounter (statuses as of 10/16/2021) [facility] History of Past illness Narrative* Problem Noted [...] of this encounter (statuses as of 10/25/2021) [facility] History of Past illness Narrative* Problem Noted [...] of this encounter (statuses as of 11/02/2021) [facility] History of Past illness Narrative* Problem Noted [...] of this encounter (statuses as of 11/12/2021) [facility]* 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 Long-term (current) use of anticoagulants Recurrent pulmonary embolism (HCC) Other pulmonary embolism and infarction Encounter for screening for COVID-19 documented [facility] this encounter [facility] Diagnosis Suppurative otitis media of right ear, unspecified chronicity- Primary [facility] this [facility] 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 Long-term (current) use of anticoagulants Recurrent pulmonary embolism (HCC) Other pulmonary embolism and infarction [facility] Diagnosis [facility] (current) use of anticoagulants- Primary Long-term (current) use of anticoagulants Recurrent pulmonary embolism (HCC) Other pulmonary embolism and infarction [facility] Mixed [facility] Diagnosis Chronic low back pain without sciatica, unspecified back pain laterality [facility] Recurrent pulmonary embolism (HCC)- Primary Other pulmonary embolism and infarction History of left-sided carotid endarterectomy Mixed hyperlipidemia Primary hypertension Unspecified essential hypertension PAD (peripheral artery disease) (HCC) Peripheral vascular disease, unspecified [facility] Eustachian tube dysfunction, right- Primary Primary hypertension Unspecified essential hypertension Recurrent pulmonary embolism (HCC) Other pulmonary embolism and infarction [facility] (current) use of anticoagulants- Primary Long-term (current) use of anticoagulants Recurrent pulmonary embolism (HCC) Other pulmonary embolism and infarction [facility] Diagnosis Insomnia, unspecified type [facility] Diagnosis Pain in gums- Primary Unspecified gingival and periodontal disease Periodontal disease Unspecified gingival and periodontal disease Chronic low back pain without sciatica, unspecified back pain laterality documented in this encounter [facility] noteNo assessment information [facility]WC[facility] Work Phone: Evaluation note* Diagnosis Essential hypertension Unspecified essential hypertension [facility]* 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 Long-term (current) use of anticoagulants Recurrent pulmonary embolism (HCC) Other pulmonary embolism and infarction documented in this encounter [facility]* Diagnosis Fall, subsequent encounter- Primary Chronic low back pain without sciatica, unspecified back pain laterality Closed head injury, subsequent encounter Neck pain on right side Cervicalgia Recurrent pulmonary embolism (HCC) Other pulmonary embolism and infarction documented in this [facility]* 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 Long-term (current) use of anticoagulants Recurrent pulmonary embolism (HCC) Other pulmonary embolism and infarction documented in this [facility]* Diagnosis Personal history of colonic polyps- Primary documented in this encounter [facility]* Diagnosis Primary hypertension- Primary Unspecified essential hypertension FCI (current) use of anticoagulants Long-term (current) use of anticoagulants Mixed hyperlipidemia Screening for prostate cancer Special screening for malignant neoplasm of prostate Chronic low back pain without sciatica, unspecified back pain laterality documented in this encounter [facility]* Diagnosis Recurrent pulmonary embolism (HCC) Other pulmonary embolism and infarction documented in this encounter [facility]* Diagnosis Mixed hyperlipidemia [facility] Diagnosis Macular hole of left eye- Primary Macular cyst, hole, or pseudohole of retina documented [facility] this [facility]* Diagnosis Chronic low back pain without sciatica, unspecified back pain laterality documented in this [facility]* Diagnosis Stenosis of left carotid artery- Primary Occlusion and stenosis of carotid artery without mention of cerebral infarction documented [facility] this [facility]* 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 Long-term (current) use of anticoagulants Recurrent pulmonary embolism (HCC) Other pulmonary embolism and infarction documented in this [facility]* Diagnosis Primary hypertension- Primary Unspecified essential hypertension 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 Long-term (current) use of anticoagulants Recurrent pulmonary embolism (HCC) Other pulmonary embolism and infarction Chronic low back pain without sciatica, unspecified back pain laterality documented in this encounter [facility]* Diagnosis FCI (current) use of anticoagulants- Primary Long-term (current) use of anticoagulants Recurrent pulmonary embolism (HCC) Other pulmonary embolism and infarction documented in this encounter [facility]* Diagnosis Recurrent pulmonary embolism (HCC)- Primary Other pulmonary embolism and infarction documented in this [facility]* Diagnosis Pain, dental Unspecified disorder of the teeth and supporting structures Insomnia, unspecified type [facility] Diagnosis Onset Date Resolution Status Hx of adenomatous colonic polyps acute [facility] Work Phone: Evaluation note* Diagnosis Essential hypertension Unspecified essential hypertension documented in this encounter [facility]* Diagnosis Primary hypertension Unspecified essential hypertension documented in this encounter [facility]* Diagnosis Recurrent pulmonary embolism (HCC)- Primary Other pulmonary embolism and infarction Mixed hyperlipidemia Primary hypertension Unspecified essential hypertension documented in this encounter [facility]* Diagnosis Pain, dental Unspecified disorder of the teeth and supporting structures documented in this encounter [facility]* Diagnosis Medicare annual wellness visit, subsequent- Primary Routine general medical examination at a health care facility PAD (peripheral artery disease) (HCC) Peripheral vascular disease, unspecified Chronic low back pain without sciatica, unspecified back pain laterality Primary hypertension Unspecified essential hypertension Mixed hyperlipidemia Recurrent pulmonary embolism (HCC) Other pulmonary embolism and infarction Impaired fasting glucose documented in this encounter [facility]* Diagnosis Recurrent pulmonary embolism (HCC)- Primary Other pulmonary embolism and infarction History of left-sided carotid endarterectomy Mixed hyperlipidemia Primary hypertension Unspecified essential hypertension PAD (peripheral artery disease) (HCC) Peripheral vascular disease, unspecified Anticoagulation management encounter Encounter for therapeutic drug monitoring documented in this encounter [facility]* Diagnosis Chronic low back pain without sciatica, unspecified back pain laterality- Primary Primary hypertension Unspecified essential hypertension Impaired fasting glucose documented in this encounter [facility]* 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 Long-term (current) use of anticoagulants Recurrent pulmonary embolism (HCC) Other pulmonary embolism and infarction documented in this encounter [facility]* Diagnosis Insomnia, unspecified type documented in this encounter [facility]* Diagnosis Chronic low back pain without sciatica, unspecified back pain laterality- Primary Spinal stenosis of lumbar region, unspecified whether neurogenic claudication present documented in this encounter [facility]* Diagnosis FCI (current) use of anticoagulants- Primary Long-term (current) use of anticoagulants Recurrent pulmonary embolism (HCC) Other pulmonary embolism and infarction [facility] Diagnosis Spinal stenosis, lumbar region with neurogenic claudication- Primary [facility]* Diagnosis Chronic low back pain without sciatica, unspecified back pain laterality documented in this encounter [facility]* 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 Long-term (current) use of anticoagulants Recurrent pulmonary embolism (HCC) Other pulmonary embolism and infarction documented in this encounter [facility]* Diagnosis Recurrent pulmonary embolism (HCC)- Primary Other pulmonary embolism and infarction FCI (current) use of anticoagulants Long-term (current) use of anticoagulants [facility]* Diagnosis Recurrent pulmonary embolism (HCC) Other pulmonary embolism and infarction documented in this encounter [facility]* Diagnosis Recurrent pulmonary embolism (HCC) Other pulmonary embolism and infarction documented in this encounter [facility]* Diagnosis Chronic low back pain without sciatica, unspecified back pain laterality Spinal stenosis of lumbar region, unspecified whether neurogenic claudication present documented in this encounter [facility] note* Diagnosis Radiculopathy, lumbar region- Primary Thoracic or lumbosacral neuritis or radiculitis, unspecified documented in this encounter [facility]* Diagnosis Chronic low back pain without sciatica, unspecified back pain laterality documented in this encounter [facility] note* Diagnosis Radiculopathy, lumbar region- Primary Thoracic or lumbosacral neuritis or radiculitis, unspecified Radiculopathy, lumbar region Thoracic or lumbosacral neuritis or radiculitis, unspecified documented in this encounter [facility] note* Diagnosis Chronic low back pain without sciatica, unspecified back pain laterality- Primary Primary hypertension Unspecified essential hypertension Kidney insufficiency Unspecified disorder of kidney and ureter Impaired fasting glucose Radiculopathy, lumbar region Thoracic or lumbosacral neuritis or radiculitis, unspecified documented in this encounter [facility] note* 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 Long-term (current) use of anticoagulants Recurrent pulmonary embolism (HCC) Other pulmonary embolism and infarction Radiculopathy, lumbar region Thoracic or lumbosacral neuritis or radiculitis, unspecified documented in this encounter [facility]* Diagnosis Macular hole of left eye- Primary Macular cyst, hole, or pseudohole of retina Posterior vitreous detachment of right eye Vitreous degeneration Radiculopathy, lumbar region Thoracic or lumbosacral neuritis or radiculitis, unspecified documented in this encounter [facility]* Diagnosis Insomnia, unspecified type Radiculopathy, lumbar region Thoracic or lumbosacral neuritis or radiculitis, unspecified [facility]* Diagnosis Lumbar spondylosis- Primary Lumbosacral spondylosis without myelopathy Chronic low back pain without sciatica, unspecified back pain laterality Hereditary and idiopathic peripheral neuropathy Unspecified hereditary and idiopathic peripheral neuropathy Spinal stenosis of lumbar region, unspecified whether neurogenic claudication present Radiculopathy, lumbar region Thoracic or lumbosacral neuritis or radiculitis, unspecified documented in this encounter [facility]* Diagnosis Gastroesophageal reflux disease without esophagitis- Primary Esophageal reflux Acute gastritis without hemorrhage, unspecified gastritis type documented in this encounter [facility]* Diagnosis FCI (current) use of anticoagulants- Primary Long-term (current) use of anticoagulants Recurrent pulmonary embolism (HCC) Other pulmonary embolism and infarction [facility]* 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 Long-term (current) use of anticoagulants Recurrent pulmonary embolism (HCC) Other pulmonary embolism and infarction documented in this encounter [facility]* Diagnosis Spinal stenosis of lumbar region, unspecified whether neurogenic claudication present- Primary Lumbar spondylosis Lumbosacral spondylosis without myelopathy [facility]* Diagnosis Mixed hyperlipidemia- Primary Recurrent pulmonary embolism (HCC) Other pulmonary embolism and infarction 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 Long-term (current) use of anticoagulants Acute gastritis without hemorrhage, unspecified gastritis type History of left-sided carotid endarterectomy Spinal stenosis of lumbar region, unspecified whether neurogenic claudication present Primary hypertension Unspecified essential hypertension documented in this encounter [facility] note* Diagnosis Recurrent pulmonary embolism (HCC) Other pulmonary embolism and infarction documented in this encounter [facility]* Diagnosis Primary hypertension Unspecified essential hypertension documented in this encounter [facility]* Diagnosis Acute gastritis without hemorrhage, unspecified gastritis type [facility] Diagnosis Encounter for therapeutic drug monitoring- Primary Mixed hyperlipidemia Impaired fasting glucose Vitamin D deficiency Unspecified vitamin D deficiency [facility]* Diagnosis Acute gastritis without hemorrhage, unspecified gastritis type- Primary Chronic low back pain without sciatica, unspecified back pain laterality documented in this encounter [facility] note* Diagnosis Impaired fasting glucose- Primary documented in this encounter [facility]* Diagnosis Insomnia, unspecified type- Primary documented in this encounter [facility]* 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 Long-term (current) use of anticoagulants Recurrent pulmonary embolism (HCC) Other pulmonary embolism and infarction documented in this encounter [facility]* Diagnosis Recurrent pulmonary embolism (HCC)- Primary Other pulmonary embolism and infarction documented in this encounter [facility] note* Diagnosis Insomnia, unspecified type documented in this encounter [facility]* Diagnosis Chronic low back pain without sciatica, unspecified back pain laterality [facility] Diagnosis Acute bilateral low back pain without sciatica- Primary Lumbar pain Lumbago Fall, subsequent encounter Recurrent pulmonary embolism (HCC) Other pulmonary embolism and infarction documented in this encounter [facility]* Diagnosis Chronic low back pain without sciatica, unspecified back pain laterality [facility]* Diagnosis FCI (current) use of anticoagulants- Primary Long-term (current) use of anticoagulants Recurrent pulmonary embolism (HCC) Other pulmonary embolism and infarction documented in this encounter [facility]* Diagnosis Chronic low back pain without sciatica, unspecified back pain laterality documented in this encounter [facility]* Diagnosis Lumbar pain Lumbago Acute bilateral low back pain without sciatica Fall, subsequent encounter [facility]* Diagnosis Compression fracture of L1 vertebra with routine healing, subsequent encounter- Primary documented [facility] this encounter [facility]* Diagnosis Compression fracture of L1 vertebra, initial encounter ([facility] Diagnosis FCI (current) use of anticoagulants- Primary Long-term (current) [...] Sciatic leg pain [facility] Lumbar pain Lumbago Acute bilateral low back pain without sciatica Fall, subsequent encounter [facility] 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 Long-term (current) [...] [facility] 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 Long-term (current) [...] [facility] Diagnosis FCI (current) use of anticoagulants- Primary Long-term (current) [...] [facility] Diagnosis FCI (current) use of anticoagulants- Primary Long-term (current) [...] [facility] Diagnosis FCI (current) use of anticoagulants- Primary Long-term (current) [...] of kidney and ureter Impaired fasting glucose FCI (current) use of anticoagulants Long-term (current) use [...] [facility] Diagnosis FCI (current) use of anticoagulants- Primary Long-term (current) use of anticoagulants Recurrent pulmonary embolism (HCC) Other pulmonary embolism and infarction [facility] Diagnosis Compression fracture of L1 vertebra with routine healing, subsequent encounter Chronic bilateral low back pain with bilateral sciatica [facility] 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 Long-term (current) use of anticoagulants Recurrent pulmonary embolism (HCC) Other pulmonary embolism and infarction [facility] Diagnosis FCI (current) use of anticoagulants- Primary Long-term (current) [...] Insomnia, unspecified type [facility] Diagnosis Primary hypertension- Primary [...] Unspecified essential hypertension [facility] Diagnosis Primary hypertension- Primary Unspecified [...] embolism and infarction documented in this encounter [facility]* Diagnosis Recurrent pulmonary embolism (HCC) Other pulmonary embolism and infarction Pain, dental Unspecified disorder of the teeth and supporting structures Compression fracture of L1 vertebra with routine healing, subsequent encounter Chronic low back pain without sciatica, unspecified back pain laterality Primary hypertension Unspecified essential hypertension documented in this [facility]* Diagnosis Recurrent pulmonary embolism (HCC) Other pulmonary embolism and infarction [facility] Diagnosis Primary hypertension Unspecified essential hypertension Dizziness Dizziness and giddiness documented in this encounter [facility]* Diagnosis Insomnia, unspecified type [facility] Diagnosis Recurrent pulmonary embolism (HCC)- Primary Other pulmonary embolism and infarction documented in this encounter [facility]* Diagnosis Side effect of medication- Primary documented in this encounter [facility]* Diagnosis Shortness of breath- Primary Chronic low back pain without sciatica, unspecified back pain laterality Neck pain Cervicalgia documented in this encounter [facility]* Diagnosis Onychomycosis- Primary Dermatophytosis of nail Pain in toe of left foot Pain in limb Pain in toe of right foot Pain in limb PAD (peripheral artery disease) ([facility]) Peripheral vascular disease, unspecified Hammer toe, unspecified laterality documented in this encounter [facility]* Diagnosis PAD (peripheral artery disease) ([facility])- Primary Peripheral vascular disease, unspecified Stenosis of left carotid artery Occlusion and stenosis of carotid artery without mention of cerebral infarction documented in this encounter [facility]* Diagnosis Insomnia, unspecified type documented in this encounter [facility]* Diagnosis Shortness of breath- Primary Primary hypertension Unspecified essential hypertension Chronic low back pain without sciatica, unspecified back pain laterality Bilateral carotid artery stenosis Occlusion and stenosis of carotid artery without mention of cerebral infarction Vision abnormalities Unspecified visual disturbance documented in this [facility]* Diagnosis Compression fracture of L1 vertebra with routine healing, subsequent encounter- Primary Chronic bilateral low back pain with bilateral sciatica Lumbar pain Lumbago documented in this encounter [facility]* Diagnosis Primary hypertension Unspecified essential hypertension documented in this encounter [facility]* Diagnosis Shortness of breath documented in this encounter [facility]* Diagnosis FCI (current) use of anticoagulants- Primary Long-term (current) use of anticoagulants Recurrent pulmonary embolism (HCC) Other pulmonary embolism and infarction documented in this encounter [facility]* Diagnosis Shortness of breath documented in this encounter [facility]* Diagnosis Shortness of breath documented in this encounter [facility]* Diagnosis Shortness of breath- Primary Primary hypertension Unspecified essential hypertension Recurrent pulmonary embolism (HCC) Other pulmonary embolism and infarction Chronic low back pain without sciatica, unspecified back pain laterality Neck pain Cervicalgia documented in this encounter [facility]* Diagnosis Chronic low back pain without sciatica, unspecified back pain laterality- Primary documented in this [facility]* Diagnosis Shortness of breath- Primary documented in this [facility]* Diagnosis Shortness of breath- Primary [facility] this [facility] Diagnosis Shortness of breath- Primary MCI (mild cognitive impairment) Mild cognitive impairment, so stated [facility] this [facility]* Diagnosis PAD (peripheral artery disease)- Primary Peripheral vascular disease, unspecified Bilateral carotid artery stenosis Occlusion and stenosis of carotid artery without mention of cerebral infarction Primary hypertension Unspecified essential hypertension Mixed hyperlipidemia History of left-sided carotid endarterectomy Recurrent pulmonary embolism (HCC) Other pulmonary embolism and infarction documented in this encounter [facility]* Diagnosis Chronic low back pain without sciatica, unspecified back pain laterality- Primary [facility] Diagnosis Macular hole of left eye- Primary Macular cyst, hole, or pseudohole of retina Posterior vitreous detachment of right eye Vitreous degeneration documented in this encounter [facility]* Diagnosis Medicare annual wellness visit, subsequent- Primary Routine general medical examination at a health care facility Ulcer of toe of left foot, unspecified ulcer stage (HCC) Shortness of breath MCI (mild cognitive impairment) Mild cognitive impairment, so stated Primary hypertension Unspecified essential hypertension documented in this encounter [facility]* Diagnosis Primary hypertension Unspecified essential hypertension Acute gastritis without hemorrhage, unspecified gastritis type Recurrent pulmonary embolism (HCC) Other pulmonary embolism and infarction documented in this [facility]* Diagnosis Chronic low back pain without sciatica, unspecified back pain laterality Neck pain Cervicalgia documented in this encounter [facility] note* Diagnosis Insomnia, unspecified type documented in this encounter [facility] note* Diagnosis Recurrent pulmonary embolism (HCC) Other pulmonary embolism and infarction Ulcer of toe of left foot, unspecified ulcer stage (HCC) documented in this encounter [facility] note* Diagnosis Encounter for therapeutic drug monitoring- Primary IFG (impaired fasting glucose) Impaired fasting glucose documented in this encounter [facility] note* 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 Long-term (current) use of anticoagulants Recurrent pulmonary embolism (HCC) Other pulmonary embolism and infarction documented in this encounter [facility] note* Diagnosis Primary hypertension Unspecified essential hypertension documented in this encounter [facility] note* Diagnosis SOB (shortness of breath)- Primary Shortness of breath Mild persistent asthma without complication (HCC) Unspecified asthma History of pulmonary embolism Personal history of pulmonary embolism documented in this encounter [facility] note* Diagnosis SOB (shortness of breath) Shortness of breath documented in this encounter [facility] note* Diagnosis Primary hypertension Unspecified essential hypertension documented in this encounter [facility] note* Diagnosis SOB (shortness of breath)- Primary Shortness of breath Chronic low back pain without sciatica, unspecified back pain laterality Compression fracture of L1 vertebra, sequela Recurrent pulmonary embolism (HCC) Other pulmonary embolism and infarction FCI (current) use of anticoagulants Long-term (current) use of anticoagulants IFG (impaired fasting glucose) Impaired fasting glucose Primary hypertension Unspecified essential hypertension Vitamin D deficiency Unspecified vitamin D deficiency Insomnia, unspecified type documented in this encounter [facility] for referral (narrative)* Outpatient Procedure (Routine) - Pending Review Specialty Diagnoses / Procedures Referred By Roula t Referred To Contact [facility] Diagnoses PAD (peripheral artery disease) (HCC) Procedures PVR LEG ADIS VAS LAB NON-INVASIVE PHYSIOLOGIC STUDY EXTREMITY 3 Edgar Rivas DO [address] [place] [address] [facility] [address] [place] [address] Referral ID Status Reason Start Date Expiration Date Visits Requested Visits Authorized [id number] Pending Review Auto-Generat ed Referral 05/26/2023 05/25/2024 1 1 * Outpatient Procedure (Routine) - Pending Review Specialty Diagnoses / Procedures Referred By Contac t Referred To Contact [facility] Diagnoses Stenosis of left carotid artery Procedures US CAROTID ARTERIES ADIS VAS LAB DUPLEX SCAN EXTRACRANIAL ART COMPL BI STUDY Edgar Loaiza DO [address] [place] [address] [facility] [address] [address] Referral ID Status Reason Start Date Expiration Date Visits Requested Visits Authorized [id number] Pending Review Auto-Generat ed Referral 05/26/2023 05/25/2024 1 1 [facility] for referral (narrative)* Outpatient Procedure (Routine) - Pending Review Specialty Diagnoses / Procedures Referred By Contac t Referred To Contact [facility] Diagnoses Screening for ischemic heart disease Procedures ECG COMPLETE ECG ROUTINE ECG W/LEAST 12 LDS W/I&R Sunny Mercedes MD [address] [place] [address] [address] Referral ID Status Reason Start Date Expiration Date Visits Requested Visits Authorized [id number] Pending Review Auto-Generat ed Referral 06/08/2023 06/07/2024 1 1 [facility] for referral (narrative)* Outpatient Procedure (Routine) - Pending Review Specialty Diagnoses / Procedures Referred By Contac t Referred To Contact [facility] Diagnoses Primary hypertension Procedures ECHO ECHO TTHRC R-T 2D W/WOM-MODE COMPL SPEC&COLR D Zeny Lam, ERIK.INFO SPECIALIST [address] [place] [address] [facility] [address] [address] Referral ID Status Reason Start Date Expiration Date Visits Requested Visits Authorized [id number] Pending Review Auto-Generat ed Referral 07/27/2023 07/26/2024 1 1 * Medication Prior Authorization - Closed Specialty Diagnoses / Procedures Referred By Contac t Referred To Contact Diagnoses Acute bilateral low back pain with bilateral sciatica Compression fracture of L1 vertebra with routine healing, subsequent encounter Chronic low back pain without sciatica, unspecified back pain laterality Zeny Lam APRN.CNP [address] [place] [address] Referral ID Status Reason Start Date Expiration Date Visits Re quested Visits Authorized [id number] Closed 1 1 [facility] for referral (narrative)* Outpatient Procedure (Routine) - Pending Review Specialty Diagnoses / Procedures Referred By Contac t Referred To Contact [facility] Diagnoses PAD (peripheral artery disease) (HCC) Procedures PVR LEG ADIS VAS LAB NON-INVASIVE PHYSIOLOGIC STUDY EXTREMITY 3 Edgar Rivas DO [address] [place] [address] [facility] [address] [address] Referral ID Status Reason Start Date Expiration Date Visits Requested Visits Authorized [id number] Pending Review Auto-Generat ed Referral 08/12/2023 08/11/2024 1 1 * Outpatient Procedure (Routine) - Pending Review Specialty Diagnoses / Procedures Referred By Contac t Referred To Contact [facility] Diagnoses Stenosis of left carotid artery Procedures US CAROTID ARTERIES ADIS VAS LAB DUPLEX SCAN EXTRACRANIAL ART COMPL BI STUDY Edgar Loaiza DO [address] [place] [address] [facility] [address] [address] Referral ID Status Reason Start Date Expiration Date Visits Requested Visits Authorized [id number] Pending Review Auto-Generat ed Referral 08/12/2023 08/11/2024 1 1 [facility] for referral (narrative)* Outpatient Procedure (Routine) - New Request Specialty Diagnoses / Procedures Referred By Roula tolentino Referred To [facility] Diagnoses SOB (shortness of breath) Procedures ECG COMPLETE ECG ROUTINE ECG W/LEAST 12 LDS W/I&R Zeny Lam APRN.INFO SPECIALIST [address] [place] [address] [facility] [address] [place] [address] Referral ID Status Reason Start Date Expiration Date Visits Requested Visits Authorized [id number] New Request Auto-Generat ed Referral 01/06/2024 01/05/2025 1 1 [facility] for referral (narrative)* Diagnostic Procedure Only (Routine) - Closed Specialty Diagnoses / Procedures Referred By Roula tolentino Referred To Contact XR IMAGING Diagnoses Neck pain Procedures XR CERV OTHER 4V AP/LAT/OBL RADEX SPINE CERVICAL 4 OR 5 VIEWS Zeny Lam APRN.INFO SPECIALIST [address] [place] [address] [id number] Referral ID Status Reason Start Date Expiration Date V isits Requested Visits Authorized [id number] Closed Auto-Generate d Referral 02/01/2024 03/02/2025 1 1 [facility] for referral (narrative)No reason for referral information availableWCoshocton [facility] Work Phone: Reason for visit Narrative* Diagnostic Procedure Only (Routine) - Closed Specialty Diagnoses / Procedures Referred By Roula tolentino Referred To Contact Radiology / RADIO GENERAL [facility] WS Diagnoses ML Procedures XR CHEST Zeny Lam APRN.CNP [facility] [place] [address] Radio General [facility] [address] [place] [address] Referral ID Status Reason Start Date Expiration Date Visits Re quested Visits Authorized [id number] Closed 08/25/2023 08/25/2023 1 1 [facility] for visit Narrative* Diagnostic Procedure Only (Routine) - Closed Specialty Diagnoses / Procedures Referred By Contac t Referred To Contact XR IMAGING Diagnoses Neck pain Procedures XR CERV OTHER 4V AP/LAT/OBL RADEX SPINE CERVICAL 4 OR 5 VIEWS Zeny Lam, VINYL CUTTER.INFO SPECIALIST [address] [place] [address] [place] [address] Referral ID Status Reason Start Date Expiration Date V isits Requested Visits Authorized [id number] Closed Auto-Generate d Referral 02/01/2024 03/02/2025 1 1 [facility] for visit Narrative* Diagnostic Procedure Only (Routine) - Closed Specialty Diagnoses / Procedures Referred By Contac t Referred To Contact [facility] Diagnoses Shortness of breath Procedures NM CARDIAC PERF STRESS/PHARM MYOCARDIAL SPECT MULTIPLE STUDIES Teri Gruber, VINYL CUTTER.INFO SPECIALIST [address] [place] [address] Phone: tel: fax: Molecular Imaging [address] [place], [place] [address] Phone: tel: Referral ID Status Reason Start Date Expiration Date V isits Requested Visits Authorized [id number] Closed Auto-Generate d Referral 05/17/2024 06/16/2025 1 1 [facility] for visit Narrative* Consult, Test, Treat (Routine) [...] W/ESTIM EACH ADDL 15 MIN Zeny Lam, VINYL CUTTER.INFO SPECIALIST [address] [place] [address] Phone: tel: fax: [facility] [address] [place] [address] Referral ID Status Reason Start Date Expiration Date Visits Requested Visits Authorized [id number] Authorized PCP Requested Referral Patient Cleared Patient agrees to sign AFR (ERIC Anders or PAN ROBBINS) 06/04/2024 04/05/2025 12 12 [facility] Advance Directives Documents on File Type Date Recorded Patient Classified Advertising Manager Expl anation Advance Directive(s) 03/13/2021 11:31 AM Advance Directive(s) 05/10/2020 7:33 AM Advance Directive(s) 05/01/2020 2:41 PM Advance Directive(s) 06/06/2019 5:02 PM Advance Directive(s) 05/17/2019 11:49 AM Advance Directive(s) 01/14/2016 7:29 AM Documents on File Type Date Recorded Patient Classified Advertising Manager Expl anation Advance Directive(s) 03/13/2021 11:31 AM Advance Directive(s) 05/10/2020 7:33 AM Advance Directive(s) 05/01/2020 2:41 PM Advance Directive(s) 06/06/2019 5:02 PM Advance Directive(s) 05/17/2019 11:49 AM Advance Directive(s) 01/14/2016 7:29 AM Advance Directive Response Recorded Date/ Time Advance Directives No May 08, 2014 12:48pm Living Will Yes September 28, 2021 1:39pm Power of Manager Gallery Yes September 28 1:39pm Name of Medical Power of Manager Gallery Twyla Freire September 28, 2021 1:39pm Documents on File Type Date Recorded Patient Classified Advertising Manager Expl anation Advance Directive(s) 03/13/2021 11:31 AM Advance Directive Response Recorded Date/ Time Advance Directives No May 08, 2014 11:48am Living Will Yes March 20 1:43pm Power of Manager Gallery Yes March 20, 2022 1:43pm Name of Medical Power of Manager Gallery LARISSA FREIRE March 20, 2022 1:43pm Documents on File Type Date Recorded Patient Classified Advertising Manager Expl anation Advance Directive(s) 03/13/2021 11:31 AM Advance Directive Response Recorded Date/ Time Do you have a Healthcare Power of Manager Gallery? Yes November 19, 2024 7:12pm Advance Directives No May 08, 2014 12:48pm Health Concerns Infection Onset Date Last Indicated Resolved Time COVID-19 Rule-Out 06/28/2021 07/03/2021 Reason for Referral Specialty Diagnoses / Procedures Referred By Contac t Referred To Contact Diagnoses Insomnia, unspecified type Franc Hills MD [address] [place], [place] [id number] Referral ID Status Reason Start Date Expiration Date V isits Requested Visits Authorized [id number] Pending Review 1 1 Specialty Diagnoses / Procedures Referred By Contac t Referred To Contact Diagnoses Chronic low back pain without sciatica, unspecified back pain laterality Spinal stenosis of lumbar region, unspecified whether neurogenic claudication present Procedures CONSULT TO SPINE SURGERY OFFICE/OUTPATIENT [facility] 60-74 MINUTES Franc Hills MD [address] [place] [address] Referral ID Status Reason Start Date Expiration Date Visits Requested Visits Authorized [id number] Pending Review PCP Requested Referral 09/24/2022 09/24/2023 1 1 Specialty Diagnoses / Procedures Referred By Contac t Referred To Contact Diagnoses Chronic low back pain without sciatica, unspecified back pain laterality Franc Hills MD [address] [place] [address] Referral ID Status Reason Start Date Expiration Date V isits Requested Visits Authorized [id number] Pending Review 1 1 Referral ID Status Reason Start Date Expiration Date Visits Re quested Visits Authorized [id number] Closed 1 1 Specialty Diagnoses / Procedures Referred By Contac t Referred To Contact General Surgery Diagnoses Acute gastritis without hemorrhage, unspecified gastritis type Procedures CONSULT TO GENERAL SURGERY OFFICE/OUTPATIENT [facility] 60-74 MINUTES Zeny Lam APRN.INFO SPECIALIST [address] [place] [address] Referral ID Status Reason Start Date Expiration Date Visits Requested Visits Authorized [id number] Pending Review PCP Requested Referral 3 02/23/2024 1 1 Specialty Diagnoses / Procedures Referred By Contac t Referred To Contact Diagnoses Chronic low back pain without sciatica, unspecified back pain laterality Zeny Lam APRN.INFO SPECIALIST [address] [place], [place] [id number] Referral ID Status Reason Start Date Expiration Date Visits Re quested Visits Authorized [id number] Closed 1 1 Specialty Diagnoses / Procedures Referred By Contac t Referred To Contact MR IMAGING Diagnoses Lumbar pain Acute bilateral low back pain without sciatica Fall, subsequent encounter Procedures MRI LUMBAR SPINE WO IVCON MRI SPINAL CANAL LUMBAR W/O CONTRAST MATERIAL Zeny Lam APRN.INFO SPECIALIST [address] [place] [address] [place] [address] Referral ID Status Reason Start Date Expiration Date Visits Requested Visits Authorized [id number] Pending Review Auto-Generat ed Referral 05/18/2023 06/16/2024 1 1 Referral ID Status Reason Start Date Expiration Date Visits Re quested Visits Authorized [id number] Closed 1 1 Referral ID Status Reason Start Date Expiration Date V isits Requested Visits Authorized [id number] Closed Auto-Generate d Referral 05/29/2023 09/04/2023 1 1 Specialty Diagnoses / Procedures Referred By Contac t Referred To Contact [facility] Diagnoses Compression fracture of L1 vertebra with routine healing, subsequent encounter Procedures CONSULT TO SPINE [facility]ICAL C[facility] OFFICE/OUTPATIENT [facility] 60 MINUTES Zeny Lam APRN.INFO SPECIALIST [address] [place] [address] Referral ID Status Reason Start Date Expiration Date Visits Requested Visits Authorized [id number] Authorized PCP Requested Referral 05/29/2023 05/28/2024 1 1 Referral ID Status Reason Start Date Expiration Date Visits Re quested Visits Authorized [id number] Closed 1 1 Specialty Diagnoses / Procedures Referred By Contac t Referred To Contact [facility] Diagnoses Chronic low back pain without sciatica, unspecified back pain laterality Compression fracture of L1 vertebra with routine healing, subsequent encounter Sciatic leg pain Procedures CONSULT TO PHYSICAL THERAPY PHYSICAL THERAPY EVALUATION [facility] COMPLEX 45 MINS Zeny Lam APRN.INFO SPECIALIST [address] [place] [address] [facility] [address] [place] [address] Referral ID Status Reason Start Date Expiration Date Visits Requested Visits Authorized [id number] Pending Review Auto-Generat ed Referral 06/15/2023 06/14/2024 1 1 Referral ID Status Reason Start Date Expiration Date Visits Re quested Visits Authorized [id number] Closed 1 1 Specialty Diagnoses / Procedures Referred By Contac t Referred To Contact Diagnoses Chronic low back pain without sciatica, unspecified back pain laterality Compression fracture of L1 vertebra with routine healing, subsequent encounter Zeny Lam APRN.INFO SPECIALIST [address] [place] [address] Referral ID Status Reason Start Date Expiration Date Visits Re quested Visits Authorized [id number] Closed 1 1 Specialty Diagnoses / Procedures Referred By Contac t Referred To Contact [facility] Diagnoses Acute bilateral low back pain with bilateral sciatica Compression fracture of L1 vertebra with routine healing, subsequent encounter Chronic low back pain without sciatica, unspecified back pain laterality Procedures CONSULT TO PHYSICAL THERAPY PHYSICAL THERAPY EV[facility]UATION [facility] 45 MINS Zeny Lam APRN.INFO SPECIALIST [address] [place] [address] [facility] [address] [place] [address] Referral ID Status Reason Start Date Expiration Date Visits Requested Visits Authorized [id number] Pending Review Auto-Generat ed Referral 06/29/2023 06/28/2024 1 1 Specialty Diagnoses / Procedures Referred By Contac t Referred To Contact Diagnoses Acute bilateral low back pain with bilateral sciatica Compression fracture of L1 vertebra with routine healing, subsequent encounter Chronic low back pain without sciatica, unspecified back pain laterality Procedures CONSULT TO WELLNESS NON-PHARMACOLOGIC PAIN MANAGEMENT OFFICE/OUTPATIENT [facility] 60 MINUTES Zeny Lam APRN.INFO SPECIALIST [address] [place] [address] Referral ID Status Reason Start Date Expiration Date Visits Requested Visits Authorized [id number] Authorized PCP Requested Referral 06/29/2023 06/28/2024 1 1 Specialty Diagnoses / Procedures Referred By Contac t Referred To Contact [facility] Diagnoses Acute bilateral low back pain with bilateral sciatica Compression fracture of L1 vertebra with routine healing, subsequent encounter Chronic low back pain without sciatica, unspecified back pain laterality Procedures CONSULT TO SPINE [facility]ICAL CENTER OFFICE/OUTPATIENT [facility] 60 MINUTES Zeny Lam APRN.INFO SPECIALIST [address] [place] [address] Referral ID Status Reason Start Date Expiration Date Visits Requested Visits Authorized [id number] Authorized PCP Requested Referral 06/29/2023 06/28/2024 1 1 Specialty Diagnoses / Procedures Referred By Contac t Referred To Contact Diagnoses Acute bilateral low back pain with bilateral sciatica Compression fracture of L1 vertebra with routine healing, subsequent encounter Chronic low back pain without sciatica, unspecified back pain laterality Zeny Lam APRN.INFO SPECIALIST [address] [place], [place] [address] Referral ID Status Reason Start Date Expiration Date Visits Re quested Visits Authorized [id number] Closed 1 1 Referral ID Status Reason Start Date Expiration Date Visits Re quested Visits Authorized [id number] Closed 1 1 Specialty Diagnoses / Procedures Referred By Contac t Referred To Contact Diagnoses Acute bilateral low back pain with bilateral sciatica Compression fracture of L1 vertebra with routine healing, subsequent encounter Chronic low back pain without sciatica, unspecified back pain laterality Franc Hills MD [address] [place] [address] Referral ID Status Reason Start Date Expiration Date Visits Re quested Visits Authorized [id number] Closed 1 1 Specialty Diagnoses / Procedures Referred By Contac t Referred To Contact Urology Diagnoses BPH with obstruction/lower urinary tract symptoms Procedures CONSULT TO UROLOGY OFFICE/OUTPATIENT [facility] 60 MINUTES Franc Hills MD [address] [place] [address] Referral ID Status Reason Start Date Expiration Date Visits Requested Visits Authorized [id number] Authorized PCP Requested Referral 07/18/2023 07/17/2024 1 1 Referral ID Status Reason Start Date Expiration Date Visits Re quested Visits Authorized [id number] Closed 1 1 Referral ID Status Reason Start Date Expiration Date Visits Re quested Visits Authorized [id number] Closed 1 1 Referral ID Status Reason Start Date Expiration Date Visits Re quested Visits Authorized [id number] Closed 1 1 Referral ID Status Reason Start Date Expiration Date Visits Re quested Visits Authorized [id number] Closed 1 1 Specialty Diagnoses / Procedures Referred By Contac t Referred To Contact [facility] Diagnoses Compression fracture of L1 vertebra with routine healing, subsequent encounter Chronic low back pain without sciatica, unspecified back pain laterality Procedures CONSULT TO PHYSICAL THERAPY PHYSICAL THERAPY EVALUATION [facility] 45 MINS Irene Moraes MD [address] [place] [address] [facility] [address] [place] [address] Referral ID Status Reason Start Date Expiration Date Visits Requested Visits Authorized [id number] Pending Review Auto-Generat ed Referral 08/27/2023 08/26/2024 [...] 15 MIN W/RE-INSJ Irene Moraes MD [address] [place] [address] Referral ID Status Reason Start Date Expiration Date Visits Requested Visits Authorized [id number] Pending Review PCP Requested Referral 08/27/2023 11/25/2023 1 1 Specialty Diagnoses / Procedures Referred By Contac t Referred To Contact Diagnoses Pain, dental Compression fracture of L1 vertebra with routine healing, subsequent encounter Chronic low back pain without sciatica, unspecified back pain laterality Zeny Lam APRN.INFO SPECIALIST [address] [place] [address] Referral ID Status Reason Start Date Expiration Date Visits Re quested Visits Authorized [id number] Closed 1 1 Specialty Diagnoses / Procedures Referred By Contac t Referred To Contact Diagnoses Chronic low back pain without sciatica, unspecified back pain laterality Neck pain Zeny Lam APRN.INFO SPECIALIST [address] [place] [address] Referral ID Status Reason Start Date Expiration Date Visits Re quested Visits Authorized [id number] Closed 1 1 Specialty Diagnoses / Procedures Referred By Contac t Referred To Contact CT IMAGING Diagnoses Primary hypertension Dizziness Procedures CT BRAIN WO IVCON CT HEAD/BRAIN W/O CONTRAST MATERIAL Zeny Lam APRN.INFO SPECIALIST [address] [place] [address] [place] [address] Referral ID Status Reason Start Date Expiration Date Visits Requested Visits Authorized [id number] Authorized Auto-Generat ed Referral 03/16/2025 1 1 Referral ID Status Reason Start Date Expiration Date V isits Requested Visits Authorized [id number] Closed Auto-Generate d Referral 02/15/2024 03/16/2025 1 [...] or prosecute any alcohol or drug abuse patient.[facility] [place] the event this information is protected by the Federal Confidentiality of Alcohol and Drug Abuse Patient Records regulations: The Federal rules restrict any use of the information to criminally investigate or prosecute any alcohol or drug abuse patient.[facility] [place]In the event this information is protected by the Federal Confidentiality of Alcohol and Drug Abuse Patient Records regulations: The Federal rules restrict any use of the information to criminally investigate or prosecute any alcohol or drug abuse patient.[facility] [place]In the event this information is protected by the Federal Confidentiality of Alcohol and Drug Abuse Patient Records regulations: The Federal rules restrict any use of the information to criminally investigate or prosecute any alcohol or drug abuse patient.[facility] [place]In the event this information is protected by the Federal Confidentiality of Alcohol and Drug Abuse Patient Records regulations: The Federal rules restrict any use of the information to criminally investigate or prosecute any alcohol or drug abuse patient.[facility] [place]In the event this information is protected by the Federal Confidentiality of Alcohol and Drug Abuse Patient Records regulations: The Federal rules restrict any use of the information to criminally investigate or prosecute any alcohol or drug abuse patient.[facility] [place]In the event this information is protected by the Federal Confidentiality of Alcohol and Drug Abuse Patient Records regulations: The Federal rules restrict any use of the information to criminally investigate or prosecute any alcohol or drug abuse patient.[facility] [place]In the event this information is protected by the Federal Confidentiality of Alcohol and Drug Abuse Patient Records regulations: The Federal rules restrict any use of the information to criminally investigate or prosecute any alcohol or drug abuse patient.[facility] [place]In the event this information is protected by the Federal Confidentiality of Alcohol and Drug Abuse Patient Records regulations: The Federal rules restrict any use of the information to criminally investigate or prosecute any alcohol or drug abuse patient.[facility] [place]In the event this information is protected by the Federal Confidentiality of Alcohol and Drug Abuse Patient Records regulations: The Federal rules restrict any use of the information to criminally investigate or prosecute any alcohol or drug abuse patient.[facility] [place]In the event this information is protected by the Federal Confidentiality of Alcohol and Drug Abuse Patient Records regulations: The Federal rules restrict any use of the information to criminally investigate or prosecute any alcohol or drug abuse patient.[facility] [place]In the event this information is protected by the Federal Confidentiality of Alcohol and Drug Abuse Patient Records regulations: The Federal rules restrict any use of the information to criminally investigate or prosecute any alcohol or drug abuse patient.[facility] [place]In the event this information is protected by the Federal Confidentiality of Alcohol and Drug Abuse Patient Records regulations: The Federal rules restrict any use of the information to criminally investigate or prosecute any alcohol or drug abuse patient.[facility] [place]In the event this information is protected by the Federal Confidentiality of Alcohol and Drug Abuse Patient Records regulations: The Federal rules restrict any use of the information to criminally investigate or prosecute any alcohol or drug abuse patient.[facility] [place]In the event this information is protected by the Federal Confidentiality of Alcohol and Drug Abuse Patient Records regulations: The Federal rules restrict any use of the information to criminally investigate or prosecute any alcohol or drug abuse patient.[facility] [place]In the event this information is protected by the Federal Confidentiality of Alcohol and Drug Abuse Patient Records regulations: The Federal rules restrict any use of the information to criminally investigate or prosecute any alcohol or drug abuse patient.[facility] [place]In the event this information is protected by the Federal Confidentiality of Alcohol and Drug Abuse Patient Records regulations: The Federal rules restrict any use of the information to criminally investigate or prosecute any alcohol or drug abuse patient.[facility] [place]In the event this information is protected by the Federal Confidentiality of Alcohol and Drug Abuse Patient Records regulations: The Federal rules restrict any use of the information to criminally investigate or prosecute any alcohol or drug abuse patient.[facility] [place]In the event this information is protected by the Federal Confidentiality of Alcohol and Drug Abuse Patient Records regulations: The Federal rules restrict any use of the information to criminally investigate or prosecute any alcohol or drug abuse patient.[facility] [place]In the event this information is protected by the Federal Confidentiality of Alcohol and Drug Abuse Patient Records regulations: The Federal rules restrict any use of the information to criminally investigate or prosecute any alcohol or drug abuse patient.[facility] [place]In the event this information is protected by the Federal Confidentiality of Alcohol and Drug Abuse Patient Records regulations: The Federal rules restrict any use of the information to criminally investigate or prosecute any alcohol or drug abuse patient.[facility] [place]In the event this information is protected by the Federal Confidentiality of Alcohol and Drug Abuse Patient Records regulations: The Federal rules restrict any use of the information to criminally investigate or prosecute any alcohol or drug abuse patient.[facility] [place]In the event this information is protected by the Federal Confidentiality of Alcohol and Drug Abuse Patient Records regulations: The Federal rules restrict any use of the information to criminally investigate or prosecute any alcohol or drug abuse patient.[facility] [place]In the event this information is protected by the Federal Confidentiality of Alcohol and Drug Abuse Patient Records regulations: The Federal rules restrict any use of the information to criminally investigate or prosecute any alcohol or drug abuse patient.[facility] [place]In the event this information is protected by the Federal Confidentiality of Alcohol and Drug Abuse Patient Records regulations: The Federal rules restrict any use of the information to criminally investigate or prosecute any alcohol or drug abuse patient.[facility] [place]In the event this information is protected by the Federal Confidentiality of Alcohol and Drug Abuse Patient Records regulations: The Federal rules restrict any use of the information to criminally investigate or prosecute any alcohol or drug abuse patient.[facility] [place]In the event this information is protected by the Federal Confidentiality of Alcohol and Drug Abuse Patient Records regulations: The Federal rules restrict any use of the information to criminally investigate or prosecute any alcohol or drug abuse patient.[facility] [place]In the event this information is protected by the Federal Confidentiality of Alcohol and Drug Abuse Patient Records regulations: The Federal rules restrict any use of the information to criminally investigate or prosecute any alcohol or drug abuse patient.[facility] [place]In the event this information is protected by the Federal Confidentiality of Alcohol and Drug Abuse Patient Records regulations: The Federal rules restrict any use of the information to criminally investigate or prosecute any alcohol or drug abuse patient.[facility] [place]In the event this information is protected by the Federal Confidentiality of Alcohol and Drug Abuse Patient Records regulations: The Federal rules restrict any use of the information to criminally investigate or prosecute any alcohol or drug abuse patient.[facility] [place]In the event this information is protected by the Federal Confidentiality of Alcohol and Drug Abuse Patient Records regulations: The Federal rules restrict any use of the information to criminally investigate or prosecute any alcohol or drug abuse patient.[facility] [place]In the event this information is protected by the Federal Confidentiality of Alcohol and Drug Abuse Patient Records regulations: The Federal rules restrict any use of the information to criminally investigate or prosecute any alcohol or drug abuse patient.[facility] [place]In the event this information is protected by the Federal Confidentiality of Alcohol and Drug Abuse Patient Records regulations: The Federal rules restrict any use of the information to criminally investigate or prosecute any alcohol or drug abuse patient.[facility] [place]In the event this information is protected by the Federal Confidentiality of Alcohol and Drug Abuse Patient Records regulations: The Federal rules restrict any use of the information to criminally investigate or prosecute any alcohol or drug abuse patient.[facility] [place]In the event this information is protected by the Federal Confidentiality of Alcohol and Drug Abuse Patient Records regulations: The Federal rules restrict any use of the information to criminally investigate or prosecute any alcohol or drug abuse patient.[facility] [place]In the event this information is protected by the Federal Confidentiality of Alcohol and Drug Abuse Patient Records regulations: The Federal rules restrict any use of the information to criminally investigate or prosecute any alcohol or drug abuse patient.[facility] [place]In the event this information is protected by the Federal Confidentiality of Alcohol and Drug Abuse Patient Records regulations: The Federal rules restrict any use of the information to criminally investigate or prosecute any alcohol or drug abuse patient.[facility] [place]In the event this information is protected by the Federal Confidentiality of Alcohol and Drug Abuse Patient Records regulations: The Federal rules restrict any use of the information to criminally investigate or prosecute any alcohol or drug abuse patient.[facility] [place]In the event this information is protected by the Federal Confidentiality of Alcohol and Drug Abuse Patient Records regulations: The Federal rules restrict any use of the information to criminally investigate or prosecute any alcohol or drug abuse patient.[facility] [place]In the event this information is protected by the Federal Confidentiality of Alcohol and Drug Abuse Patient Records regulations: The Federal rules restrict any use of the information to criminally investigate or prosecute any alcohol or drug abuse patient.[facility] [place]In the event this information is protected by the Federal Confidentiality of Alcohol and Drug Abuse Patient Records regulations: The Federal rules restrict any use of the information to criminally investigate or prosecute any alcohol or drug abuse patient.[facility] [place]In the event this information is protected by the Federal Confidentiality of Alcohol and Drug Abuse Patient Records regulations: The Federal rules restrict any use of the information to criminally investigate or prosecute any alcohol or drug abuse patient.[facility] [place]In the event this information is protected by the Federal Confidentiality of Alcohol and Drug Abuse Patient Records regulations: The Federal rules restrict any use of the information to criminally investigate or prosecute any alcohol or drug abuse patient.[facility] [place]In the event this information is protected by the Federal Confidentiality of Alcohol and Drug Abuse Patient Records regulations: The Federal rules restrict any use of the information to criminally investigate or prosecute any alcohol or drug abuse patient.[facility] [place]In the event this information is protected by the Federal Confidentiality of Alcohol and Drug Abuse Patient Records regulations: The Federal rules restrict any use of the information to criminally investigate or prosecute any alcohol or drug abuse patient.[facility] [place]In the event this information is protected by the Federal Confidentiality of Alcohol and Drug Abuse Patient Records regulations: The Federal rules restrict any use of the information to criminally investigate or prosecute any alcohol or drug abuse patient.[facility] [place]In the event this information is protected by the Federal Confidentiality of Alcohol and Drug Abuse Patient Records regulations: The Federal rules restrict any use of the information to criminally investigate or prosecute any alcohol or drug abuse patient.[facility] [place]In the event this information is protected by the Federal Confidentiality of Alcohol and Drug Abuse Patient Records regulations: The Federal rules restrict any use of the information to criminally investigate or prosecute any alcohol or drug abuse patient.[facility] [place]In the event this information is protected by the Federal Confidentiality of Alcohol and Drug Abuse Patient Records regulations: The Federal rules restrict any use of the information to criminally investigate or prosecute any alcohol or drug abuse patient.[facility] [place]In the event this information is protected by the Federal Confidentiality of Alcohol and Drug Abuse Patient Records regulations: The Federal rules restrict any use of the information to criminally investigate or prosecute any alcohol or drug abuse patient.[facility] [place]In the event this information is protected by the Federal Confidentiality of Alcohol and Drug Abuse Patient Records regulations: The Federal rules restrict any use of the information to criminally investigate or prosecute any alcohol or drug abuse patient.[facility] [place]In the event this information is protected by the Federal Confidentiality of Alcohol and Drug Abuse Patient Records regulations: The Federal rules restrict any use of the information to criminally investigate or prosecute any alcohol or drug abuse patient.[facility] [place]In the event this information is protected by the Federal Confidentiality of Alcohol and Drug Abuse Patient Records regulations: The Federal rules restrict any use of the information to criminally investigate or prosecute any alcohol or drug abuse patient.[facility] [place]In the event this information is protected by the Federal Confidentiality of Alcohol and Drug Abuse Patient Records regulations: The Federal rules restrict any use of the information to criminally investigate or prosecute any alcohol or drug abuse patient.[facility] [place]In the event this information is protected by the Federal Confidentiality of Alcohol and Drug Abuse Patient Records regulations: The Federal rules restrict any use of the information to criminally investigate or prosecute any alcohol or drug abuse patient.[facility] [place]In the event this information is protected by the Federal Confidentiality of Alcohol and Drug Abuse Patient Records regulations: The Federal rules restrict any use of the information to criminally investigate or prosecute any alcohol or drug abuse patient.[facility] [place]In the event this information is protected by the Federal Confidentiality of Alcohol and Drug Abuse Patient Records regulations: The Federal rules restrict any use of the information to criminally investigate or prosecute any alcohol or drug abuse patient.[facility] [place]In the event this information is protected by the Federal Confidentiality of Alcohol and Drug Abuse Patient Records regulations: The Federal rules restrict any use of the information to criminally investigate or prosecute any alcohol or drug abuse patient.[facility] [place]In the event this information is protected by the Federal Confidentiality of Alcohol and Drug Abuse Patient Records regulations: The Federal rules restrict any use of the information to criminally investigate or prosecute any alcohol or drug abuse patient.[facility] [place]In the event this information is protected by the Federal Confidentiality of Alcohol and Drug Abuse Patient Records regulations: The Federal rules restrict any use of the information to criminally investigate or prosecute any alcohol or drug abuse patient.[facility] [place]In the event this information is protected by the Federal Confidentiality of Alcohol and Drug Abuse Patient Records regulations: The Federal rules restrict any use of the information to criminally investigate or prosecute any alcohol or drug abuse patient.[facility] [place]In the event this information is protected by the Federal Confidentiality of Alcohol and Drug Abuse Patient Records regulations: The Federal rules restrict any use of the information to criminally investigate or prosecute any alcohol or drug abuse patient.[facility] [place]In the event this information is protected by the Federal Confidentiality of Alcohol and Drug Abuse Patient Records regulations: The Federal rules restrict any use of the information to criminally investigate or prosecute any alcohol or drug abuse patient.[facility] [place]In the event this information is protected by the Federal Confidentiality of Alcohol and Drug Abuse Patient Records regulations: The Federal rules restrict any use of the information to criminally investigate or prosecute any alcohol or drug abuse patient.[facility] [place]In the event this information is protected by the Federal Confidentiality of Alcohol and Drug Abuse Patient Records regulations: The Federal rules restrict any use of the information to criminally investigate or prosecute any alcohol or drug abuse patient.[facility] [place]In the event this information is protected by the Federal Confidentiality of Alcohol and Drug Abuse Patient Records regulations: The Federal rules restrict any use of the information to criminally investigate or prosecute any alcohol or drug abuse patient.[facility] [place]In the event this information is protected by the Federal Confidentiality of Alcohol and Drug Abuse Patient Records regulations: The Federal rules restrict any use of the information to criminally investigate or prosecute any alcohol or drug abuse patient.[facility] [place]In the event this information is protected by the Federal Confidentiality of Alcohol and Drug Abuse Patient Records regulations: The Federal rules restrict any use of the information to criminally investigate or prosecute any alcohol or drug abuse patient.[facility] [place]In the event this information is protected by the Federal Confidentiality of Alcohol and Drug Abuse Patient Records regulations: The Federal rules restrict any use of the information to criminally investigate or prosecute any alcohol or drug abuse patient.[facility] [place]In the event this information is protected by the Federal Confidentiality of Alcohol and Drug Abuse Patient Records regulations: The Federal rules restrict any use of the information to criminally investigate or prosecute any alcohol or drug abuse patient.[facility] [place]In the event this information is protected by the Federal Confidentiality of Alcohol and Drug Abuse Patient Records regulations: The Federal rules restrict any use of the information to criminally investigate or prosecute any alcohol or drug abuse patient.[facility] [place]In the event this information is protected by the Federal Confidentiality of Alcohol and Drug Abuse Patient Records regulations: The Federal rules restrict any use of the information to criminally investigate or prosecute any alcohol or drug abuse patient.[facility] [place]In the event this information is protected by the Federal Confidentiality of Alcohol and Drug Abuse Patient Records regulations: The Federal rules restrict any use of the information to criminally investigate or prosecute any alcohol or drug abuse patient.[facility] [place]In the event this information is protected by the Federal Confidentiality of Alcohol and Drug Abuse Patient Records regulations: The Federal rules restrict any use of the information to criminally investigate or prosecute any alcohol or drug abuse patient.[facility] [place]In the event this information is protected by the Federal Confidentiality of Alcohol and Drug Abuse Patient Records regulations: The Federal rules restrict any use of the information to criminally investigate or prosecute any alcohol or drug abuse patient.[facility] [place]In the event this information is protected by the Federal Confidentiality of Alcohol and Drug Abuse Patient Records regulations: The Federal rules restrict any use of the information to criminally investigate or prosecute any alcohol or drug abuse patient.[facility] [place]In the event this information is protected by the Federal Confidentiality of Alcohol and Drug Abuse Patient Records regulations: The Federal rules restrict any use of the information to criminally investigate or prosecute any alcohol or drug abuse patient.[facility] [place]In the event this information is protected by the Federal Confidentiality of Alcohol and Drug Abuse Patient Records regulations: The Federal rules restrict any use of the information to criminally investigate or prosecute any alcohol or drug abuse patient.[facility] [place]In the event this information is protected by the Federal Confidentiality of Alcohol and Drug Abuse Patient Records regulations: The Federal rules restrict any use of the information to criminally investigate or prosecute any alcohol or drug abuse patient.[facility] [place] the event this information is protected by the Federal Confidentiality of Alcohol and Drug Abuse Patient Records regulations: The Federal rules restrict any use of the information to criminally investigate or prosecute any alcohol or drug abuse patient.[facility] [place]In the event this information is protected by the Federal Confidentiality of Alcohol and Drug Abuse Patient Records regulations: The Federal rules restrict any use of the information to criminally investigate or prosecute any alcohol or drug abuse patient.[facility] [place]In the event this information is protected by the Federal Confidentiality of Alcohol and Drug Abuse Patient Records regulations: The Federal rules restrict any use of the information to criminally investigate or prosecute any alcohol or drug abuse patient.[facility] [place]In the event this information is protected by the Federal Confidentiality of Alcohol and Drug Abuse Patient Records regulations: The Federal rules restrict any use of the information to criminally investigate or prosecute any alcohol or drug abuse patient.[facility] [place]In the event this information is protected by the Federal Confidentiality of Alcohol and Drug Abuse Patient Records regulations: The Federal rules restrict any use of the information to criminally investigate or prosecute any alcohol or drug abuse patient.[facility] [place]In the event this information is protected by the Federal Confidentiality of Alcohol and Drug Abuse Patient Records regulations: The Federal rules restrict any use of the information to criminally investigate or prosecute any alcohol or drug abuse patient.[facility] [place]In the event this information is protected by the Federal Confidentiality of Alcohol and Drug Abuse Patient Records regulations: The Federal rules restrict any use of the information to criminally investigate or prosecute any alcohol or drug abuse patient.[facility] [place]In the event this information is protected by the Federal Confidentiality of Alcohol and Drug Abuse Patient Records regulations: The Federal rules restrict any use of the information to criminally investigate or prosecute any alcohol or drug abuse patient.[facility] [place]In the event this information is protected by the Federal Confidentiality of Alcohol and Drug Abuse Patient Records regulations: The Federal rules restrict any use of the information to criminally investigate or prosecute any alcohol or drug abuse patient.[facility] [place]In the event this information is protected by the Federal Confidentiality of Alcohol and Drug Abuse Patient Records regulations: The Federal rules restrict any use of the information to criminally investigate or prosecute any alcohol or drug abuse patient.[facility] [place]In the event this information is protected by the Federal Confidentiality of Alcohol and Drug Abuse Patient Records regulations: The Federal rules restrict any use of the information to criminally investigate or prosecute any alcohol or drug abuse patient.[facility] [place]In the event this information is protected by the Federal Confidentiality of Alcohol and Drug Abuse Patient Records regulations: The Federal rules restrict any use of the information to criminally investigate or prosecute any alcohol or drug abuse patient.[facility] [place]In the event this information is protected by the Federal Confidentiality of Alcohol and Drug Abuse Patient Records regulations: The Federal rules restrict any use of the information to criminally investigate or prosecute any alcohol or drug abuse patient.[facility] [place]In the event this information is protected by the Federal Confidentiality of Alcohol and Drug Abuse Patient Records regulations: The Federal rules restrict any use of the information to criminally investigate or prosecute any alcohol or drug abuse patient.[facility] [place]In the event this information is protected by the Federal Confidentiality of Alcohol and Drug Abuse Patient Records regulations: The Federal rules restrict any use of the information to criminally investigate or prosecute any alcohol or drug abuse patient.[facility] [place]In the event this information is protected by the Federal Confidentiality of Alcohol and Drug Abuse Patient Records regulations: The Federal rules restrict any use of the information to criminally investigate or prosecute any alcohol or drug abuse patient.[facility] [place]In the event this information is protected by the Federal Confidentiality of Alcohol and Drug Abuse Patient Records regulations: The Federal rules restrict any use of the information to criminally investigate or prosecute any alcohol or drug abuse patient.[facility] [place]In the event this information is protected by the Federal Confidentiality of Alcohol and Drug Abuse Patient Records regulations: The Federal rules restrict any use of the information to criminally investigate or prosecute any alcohol or drug abuse patient.[facility] [place]In the event this information is protected by the Federal Confidentiality of Alcohol and Drug Abuse Patient Records regulations: The Federal rules restrict any use of the information to criminally investigate or prosecute any alcohol or drug abuse patient.[facility] [place]In the event this information is protected by the Federal Confidentiality of Alcohol and Drug Abuse Patient Records regulations: The Federal rules restrict any use of the information to criminally investigate or prosecute any alcohol or drug abuse patient.[facility] [place]In the event this information is protected by the Federal Confidentiality of Alcohol and Drug Abuse Patient Records regulations: The Federal rules restrict any use of the information to criminally investigate or prosecute any alcohol or drug abuse patient.[facility] [place]In the event this information is protected by the Federal Confidentiality of Alcohol and Drug Abuse Patient Records regulations: The Federal rules restrict any use of the information to criminally investigate or prosecute any alcohol or drug abuse patient.[facility] [place]In the event this information is protected by the Federal Confidentiality of Alcohol and Drug Abuse Patient Records regulations: The Federal rules restrict any use of the information to criminally investigate or prosecute any alcohol or drug abuse patient.[facility] [place]In the event this information is protected by the Federal Confidentiality of Alcohol and Drug Abuse Patient Records regulations: The Federal rules restrict any use of the information to criminally investigate or prosecute any alcohol or drug abuse patient.[facility] [place]In the event this information is protected by the Federal Confidentiality of Alcohol and Drug Abuse Patient Records regulations: The Federal rules restrict any use of the information to criminally investigate or prosecute any alcohol or drug abuse patient.[facility] [place]In the event this information is protected by the Federal Confidentiality of Alcohol and Drug Abuse Patient Records regulations: The Federal rules restrict any use of the information to criminally investigate or prosecute any alcohol or drug abuse patient.[facility] [place]In the event this information is protected by the Federal Confidentiality of Alcohol and Drug Abuse Patient Records regulations: The Federal rules restrict any use of the information to criminally investigate or prosecute any alcohol or drug abuse patient.[facility] [place]In the event this information is protected by the Federal Confidentiality of Alcohol and Drug Abuse Patient Records regulations: The Federal rules restrict any use of the information to criminally investigate or prosecute any alcohol or drug abuse patient.[facility] [place]In the event this information is protected by the Federal Confidentiality of Alcohol and Drug Abuse Patient Records regulations: The Federal rules restrict any use of the information to criminally investigate or prosecute any alcohol or drug abuse patient.[facility] [place]In the event this information is protected by the Federal Confidentiality of Alcohol and Drug Abuse Patient Records regulations: The Federal rules restrict any use of the information to criminally investigate or prosecute any alcohol or drug abuse patient.[facility] [place]In the event this information is protected by the Federal Confidentiality of Alcohol and Drug Abuse Patient Records regulations: The Federal rules restrict any use of the information to criminally investigate or prosecute any alcohol or drug abuse patient.[facility] [place]In the event this information is protected by the Federal Confidentiality of Alcohol and Drug Abuse Patient Records regulations: The Federal rules restrict any use of the information to criminally investigate or prosecute any alcohol or drug abuse patient.[facility] [place]In the event this information is protected by the Federal Confidentiality of Alcohol and Drug Abuse Patient Records regulations: The Federal rules restrict any use of the information to criminally investigate or prosecute any alcohol or drug abuse patient.[facility] [place]In the event this information is protected by the Federal Confidentiality of Alcohol and Drug Abuse Patient Records regulations: The Federal rules restrict any use of the information to criminally investigate or prosecute any alcohol or drug abuse patient.[facility] [place]In the event this information is protected by the Federal Confidentiality of Alcohol and Drug Abuse Patient Records regulations: The Federal rules restrict any use of the information to criminally investigate or prosecute any alcohol or drug abuse patient.[facility] [place]In the event this information is protected by the Federal Confidentiality of Alcohol and Drug Abuse Patient Records regulations: The Federal rules restrict any use of the information to criminally investigate or prosecute any alcohol or drug abuse patient.[facility] [place]In the event this information is protected by the Federal Confidentiality of Alcohol and Drug Abuse Patient Records regulations: The Federal rules restrict any use of the information to criminally investigate or prosecute any alcohol or drug abuse patient.[facility] [place]In the event this information is protected by the Federal Confidentiality of Alcohol and Drug Abuse Patient Records regulations: The Federal rules restrict any use of the information to criminally investigate or prosecute any alcohol or drug abuse patient.[facility] [place]In the event this information is protected by the Federal Confidentiality of Alcohol and Drug Abuse Patient Records regulations: The Federal rules restrict any use of the information to criminally investigate or prosecute any alcohol or drug abuse patient.[facility] [place]In the event this information is protected by the Federal Confidentiality of Alcohol and Drug Abuse Patient Records regulations: The Federal rules restrict any use of the information to criminally investigate or prosecute any alcohol or drug abuse patient.[facility] [place]In the event this information is protected by the Federal Confidentiality of Alcohol and Drug Abuse Patient Records regulations: The Federal rules restrict any use of the information to criminally investigate or prosecute any alcohol or drug abuse patient.[facility] [place]In the event this information is protected by the Federal Confidentiality of Alcohol and Drug Abuse Patient Records regulations: The Federal rules restrict any use of the information to criminally investigate or prosecute any alcohol or drug abuse patient.[facility] [place]In the event this information is protected by the Federal Confidentiality of Alcohol and Drug Abuse Patient Records regulations: The Federal rules restrict any use of the information to criminally investigate or prosecute any alcohol or drug abuse patient.[facility] [place]In the event this information is protected by the Federal Confidentiality of Alcohol and Drug Abuse Patient Records regulations: The Federal rules restrict any use of the information to criminally investigate or prosecute any alcohol or drug abuse patient.[facility] [place]In the event this information is protected by the Federal Confidentiality of Alcohol and Drug Abuse Patient Records regulations: The Federal rules restrict any use of the information to criminally investigate or prosecute any alcohol or drug abuse patient.[facility] [place]In the event this information is protected by the Federal Confidentiality of Alcohol and Drug Abuse Patient Records regulations: The Federal rules restrict any use of the information to criminally investigate or prosecute any alcohol or drug abuse patient.[facility] [place]In the event this information is protected by the Federal Confidentiality of Alcohol and Drug Abuse Patient Records regulations: The Federal rules restrict any use of the information to criminally investigate or prosecute any alcohol or drug abuse patient.[facility] [place]In the event this information is protected by the Federal Confidentiality of Alcohol and Drug Abuse Patient Records regulations: The Federal rules restrict any use of the information to criminally investigate or prosecute any alcohol or drug abuse patient.[facility] [place]In the event this information is protected by the Federal Confidentiality of Alcohol and Drug Abuse Patient Records regulations: The Federal rules restrict any use of the information to criminally investigate or prosecute any alcohol or drug abuse patient.[facility] [place]In the event this information is protected by the Federal Confidentiality of Alcohol and Drug Abuse Patient Records regulations: The Federal rules restrict any use of the information to criminally investigate or prosecute any alcohol or drug abuse patient.[facility] [place]In the event this information is protected by the Federal Confidentiality of Alcohol and Drug Abuse Patient Records regulations: The Federal rules restrict any use of the information to criminally investigate or prosecute any alcohol or drug abuse patient.[facility] [place]In the event this information is protected by the Federal Confidentiality of Alcohol and Drug Abuse Patient Records regulations: The Federal rules restrict any use of the information to criminally investigate or prosecute any alcohol or drug abuse patient.[facility] [place]In the event this information is protected by the Federal Confidentiality of Alcohol and Drug Abuse Patient Records regulations: The Federal rules restrict any use of the information to criminally investigate or prosecute any alcohol or drug abuse patient.[facility] [place]In the event this information is protected by the Federal Confidentiality of Alcohol and Drug Abuse Patient Records regulations: The Federal rules restrict any use of the information to criminally investigate or prosecute any alcohol or drug abuse patient.[facility] [place]In the event this information is protected by the Federal Confidentiality of Alcohol and Drug Abuse Patient Records regulations: The Federal rules restrict any use of the information to criminally investigate or prosecute any alcohol or drug abuse patient.[facility] [place]In the event this information is protected by the Federal Confidentiality of Alcohol and Drug Abuse Patient Records regulations: The Federal rules restrict any use of the information to criminally investigate or prosecute any alcohol or drug abuse patient.[facility] [place]In the event this information is protected by the Federal Confidentiality of Alcohol and Drug Abuse Patient Records regulations: The Federal rules restrict any use of the information to criminally investigate or prosecute any alcohol or drug abuse patient.[facility] [place]In the event this information is protected by the Federal Confidentiality of Alcohol and Drug Abuse Patient Records regulations: The Federal rules restrict any use of the information to criminally investigate or prosecute any alcohol or drug abuse patient.[facility] [place]In the event this information is protected by the Federal Confidentiality of Alcohol and Drug Abuse Patient Records regulations: The Federal rules restrict any use of the information to criminally investigate or prosecute any alcohol or drug abuse patient.[facility] [place]In the event this information is protected by the Federal Confidentiality of Alcohol and Drug Abuse Patient Records regulations: The Federal rules restrict any use of the information to criminally investigate or prosecute any alcohol or drug abuse patient.[facility] [place]In the event this information is protected by the Federal Confidentiality of Alcohol and Drug Abuse Patient Records regulations: The Federal rules restrict any use of the information to criminally investigate or prosecute any alcohol or drug abuse patient.[facility] [place]In the event this information is protected by the Federal Confidentiality of Alcohol and Drug Abuse Patient Records regulations: The Federal rules restrict any use of the information to criminally investigate or prosecute any alcohol or drug abuse patient.[facility] [place]In the event this information is protected by the Federal Confidentiality of Alcohol and Drug Abuse Patient Records regulations: The Federal rules restrict any use of the information to criminally investigate or prosecute any alcohol or drug abuse patient.[facility] [place]In the event this information is protected by the Federal Confidentiality of Alcohol and Drug Abuse Patient Records regulations: The Federal rules restrict any use of the information to criminally investigate or prosecute any alcohol or drug abuse patient.[facility] [place]In the event this information is protected by the Federal Confidentiality of Alcohol and Drug Abuse Patient Records regulations: The Federal rules restrict any use of the information to criminally investigate or prosecute any alcohol or drug abuse patient.[facility] [place]In the event this information is protected by the Federal Confidentiality of Alcohol and Drug Abuse Patient Records regulations: The Federal rules restrict any use of the information to criminally investigate or prosecute any alcohol or drug abuse patient.[facility] [place]In the event this information is protected by the Federal Confidentiality of Alcohol and Drug Abuse Patient Records regulations: The Federal rules restrict any use of the information to criminally investigate or prosecute any alcohol or drug abuse patient.[facility] [place]In the event this information is protected by the Federal Confidentiality of Alcohol and Drug Abuse Patient Records regulations: The Federal rules restrict any use of the information to criminally investigate or prosecute any alcohol or drug abuse patient.[facility] [place]In the event this information is protected by the Federal Confidentiality of Alcohol and Drug Abuse Patient Records regulations: The Federal rules restrict any use of the information to criminally investigate or prosecute any alcohol or drug abuse patient.[facility] [place]In the event this information is protected by the Federal Confidentiality of Alcohol and Drug Abuse Patient Records regulations: The Federal rules restrict any use of the information to criminally investigate or prosecute any alcohol or drug abuse patient.[facility] [place]In the event this information is protected by the Federal Confidentiality of Alcohol and Drug Abuse Patient Records regulations: The Federal rules restrict any use of the information to criminally investigate or prosecute any alcohol or drug abuse patient.[facility] [place]In the event this information is protected by the Federal Confidentiality of Alcohol and Drug Abuse Patient Records regulations: The Federal rules restrict any use of the information to criminally investigate or prosecute any alcohol or drug abuse patient.[facility] [place]In the event this information is protected by the Federal Confidentiality of Alcohol and Drug Abuse Patient Records regulations: The Federal rules restrict any use of the information to criminally investigate or prosecute any alcohol or drug abuse patient.[facility] [place]In the event this information is protected by the Federal Confidentiality of Alcohol and Drug Abuse Patient Records regulations: The Federal rules restrict any use of the information to criminally investigate or prosecute any alcohol or drug abuse patient.[facility] [place]In the event this information is protected by the Federal Confidentiality of Alcohol and Drug Abuse Patient Records regulations: The Federal rules restrict any use of the information to criminally investigate or prosecute any alcohol or drug abuse patient.[facility] [place]In the event this information is protected by the Federal Confidentiality of Alcohol and Drug Abuse Patient Records regulations: The Federal rules restrict any use of the information to criminally investigate or prosecute any alcohol or drug abuse patient.[facility] [place]In the event this information is protected by the Federal Confidentiality of Alcohol and Drug Abuse Patient Records regulations: The Federal rules restrict any use of the information to criminally investigate or prosecute any alcohol or drug abuse patient.[facility] [place] the event this information is protected by the Federal Confidentiality of Alcohol and Drug Abuse Patient Records regulations: The Federal rules restrict any use of the information to criminally investigate or prosecute any alcohol or drug abuse patient.[facility] [place]In the event this information is protected by the Federal Confidentiality of Alcohol and Drug Abuse Patient Records regulations: The Federal rules restrict any use of the information to criminally investigate or prosecute any alcohol or drug abuse patient.[facility] [place]In the event this information is protected by the Federal Confidentiality of Alcohol and Drug Abuse Patient Records regulations: The Federal rules restrict any use of the information to criminally investigate or prosecute any alcohol or drug abuse patient.[facility] [place]In the event this information is protected by the Federal Confidentiality of Alcohol and Drug Abuse Patient Records regulations: The Federal rules restrict any use of the information to criminally investigate or prosecute any alcohol or drug abuse patient.[facility] [place]In the event this information is protected by the Federal Confidentiality of Alcohol and Drug Abuse Patient Records regulations: The Federal rules restrict any use of the information to criminally investigate or prosecute any alcohol or drug abuse patient.[facility] [place]In the event this information is protected by the Federal Confidentiality of Alcohol and Drug Abuse Patient Records regulations: The Federal rules restrict any use of the information to criminally investigate or prosecute any alcohol or drug abuse patient.[facility] [place]In the event this information is protected by the Federal Confidentiality of Alcohol and Drug Abuse Patient Records regulations: The Federal rules restrict any use of the information to criminally investigate or prosecute any alcohol or drug abuse patient.[facility] [place]In the event this information is protected by the Federal Confidentiality of Alcohol and Drug Abuse Patient Records regulations: The Federal rules restrict any use of the information to criminally investigate or prosecute any alcohol or drug abuse patient.[facility] [place]In the event this information is protected by the Federal Confidentiality of Alcohol and Drug Abuse Patient Records regulations: The Federal rules restrict any use of the information to criminally investigate or prosecute any alcohol or drug abuse patient.[facility] [place]In the event this information is protected by the Federal Confidentiality of Alcohol and Drug Abuse Patient Records regulations: The Federal rules restrict any use of the information to criminally investigate or prosecute any alcohol or drug abuse patient.[facility] [place]In the event this information is protected by the Federal Confidentiality of Alcohol and Drug Abuse Patient Records regulations: The Federal rules restrict any use of the information to criminally investigate or prosecute any alcohol or drug abuse patient.[facility] [place]In the event this information is protected by the Federal Confidentiality of Alcohol and Drug Abuse Patient Records regulations: The Federal rules restrict any use of the information to criminally investigate or prosecute any alcohol or drug abuse patient.[facility] [place]In the event this information is protected by the Federal Confidentiality of Alcohol and Drug Abuse Patient Records regulations: The Federal rules restrict any use of the information to criminally investigate or prosecute any alcohol or drug abuse patient.[facility] [place]In the event this information is protected by the Federal Confidentiality of Alcohol and Drug Abuse Patient Records regulations: The Federal rules restrict any use of the information to criminally investigate or prosecute any alcohol or drug abuse patient.[facility] [place]In the event this information is protected by the Federal Confidentiality of Alcohol and Drug Abuse Patient Records regulations: The Federal rules restrict any use of the information to criminally investigate or prosecute any alcohol or drug abuse patient.[facility] [place]In the event this information is protected by the Federal Confidentiality of Alcohol and Drug Abuse Patient Records regulations: The Federal rules restrict any use of the information to criminally investigate or prosecute any alcohol or drug abuse patient.[facility] [place]In the event this information is protected by the Federal Confidentiality of Alcohol and Drug Abuse Patient Records regulations: The Federal rules restrict any use of the information to criminally investigate or prosecute any alcohol or drug abuse patient.[facility] [place]In the event this information is protected by the Federal Confidentiality of Alcohol and Drug Abuse Patient Records regulations: The Federal rules restrict any use of the information to criminally investigate or prosecute any alcohol or drug abuse patient.[facility] [place]In the event this information is protected by the Federal Confidentiality of Alcohol and Drug Abuse Patient Records regulations: The Federal rules restrict any use of the information to criminally investigate or prosecute any alcohol or drug abuse patient.[facility] [place]In the event this information is protected by the Federal Confidentiality of Alcohol and Drug Abuse Patient Records regulations: The Federal rules restrict any use of the information to criminally investigate or prosecute any alcohol or drug abuse patient.[facility] [place]In the event this information is protected by the Federal Confidentiality of Alcohol and Drug Abuse Patient Records regulations: The Federal rules restrict any use of the information to criminally investigate or prosecute any alcohol or drug abuse patient.[facility] [place]In the event this information is protected by the Federal Confidentiality of Alcohol and Drug Abuse Patient Records regulations: The Federal rules restrict any use of the information to criminally investigate or prosecute any alcohol or drug abuse patient.[facility] [place]In the event this information is protected by the Federal Confidentiality of Alcohol and Drug Abuse Patient Records regulations: The Federal rules restrict any use of the information to criminally investigate or prosecute any alcohol or drug abuse patient.[facility] [place]In the event this information is protected by the Federal Confidentiality of Alcohol and Drug Abuse Patient Records regulations: The Federal rules restrict any use of the information to criminally investigate or prosecute any alcohol or drug abuse patient.[facility] [place]In the event this information is protected by the Federal Confidentiality of Alcohol and Drug Abuse Patient Records regulations: The Federal rules restrict any use of the information to criminally investigate or prosecute any alcohol or drug abuse patient.[facility] [place]In the event this information is protected by the Federal Confidentiality of Alcohol and Drug Abuse Patient Records regulations: The Federal rules restrict any use of the information to criminally investigate or prosecute any alcohol or drug abuse patient.[facility] [place]In the event this information is protected by the Federal Confidentiality of Alcohol and Drug Abuse Patient Records regulations: The Federal rules restrict any use of the information to criminally investigate or prosecute any alcohol or drug abuse patient.[facility] [place]In the event this information is protected by the Federal Confidentiality of Alcohol and Drug Abuse Patient Records regulations: The Federal rules restrict any use of the information to criminally investigate or prosecute any alcohol or drug abuse patient.[facility] [place]In the event this information is protected by the Federal Confidentiality of Alcohol and Drug Abuse Patient Records regulations: The Federal rules restrict any use of the information to criminally investigate or prosecute any alcohol or drug abuse patient.[facility] [place]In the event this information is protected by the Federal Confidentiality of Alcohol and Drug Abuse Patient Records regulations: The Federal rules restrict any use of the information to criminally investigate or prosecute any alcohol or drug abuse patient.[facility] [place]In the event this information is protected by the Federal Confidentiality of Alcohol and Drug Abuse Patient Records regulations: The Federal rules restrict any use of the information to criminally investigate or prosecute any alcohol or drug abuse patient.[facility] [place]In the event this information is protected by the Federal Confidentiality of Alcohol and Drug Abuse Patient Records regulations: The Federal rules restrict any use of the information to criminally investigate or prosecute any alcohol or drug abuse patient.[facility] [place]In the event this information is protected by the Federal Confidentiality of Alcohol and Drug Abuse Patient Records regulations: The Federal rules restrict any use of the information to criminally investigate or prosecute any alcohol or drug abuse patient.[facility] [place]In the event this information is protected by the Federal Confidentiality of Alcohol and Drug Abuse Patient Records regulations: The Federal rules restrict any use of the information to criminally investigate or prosecute any alcohol or drug abuse patient.[facility] [place]In the event this information is protected by the Federal Confidentiality of Alcohol and Drug Abuse Patient Records regulations: The Federal rules restrict any use of the information to criminally investigate or prosecute any alcohol or drug abuse patient.[facility] [place]In the event this information is protected by the Federal Confidentiality of Alcohol and Drug Abuse Patient Records regulations: The Federal rules restrict any use of the information to criminally investigate or prosecute any alcohol or drug abuse patient.[facility] [place]In the event this information is protected by the Federal Confidentiality of Alcohol and Drug Abuse Patient Records regulations: The Federal rules restrict any use of the information to criminally investigate or prosecute any alcohol or drug abuse patient.[facility] [place]In the event this information is protected by the Federal Confidentiality of Alcohol and Drug Abuse Patient Records regulations: The Federal rules restrict any use of the information to criminally investigate or prosecute any alcohol or drug abuse patient.[facility] [place]In the event this information is protected by the Federal Confidentiality of Alcohol and Drug Abuse Patient Records regulations: The Federal rules restrict any use of the information to criminally investigate or prosecute any alcohol or drug abuse patient.[facility] [place]In the event this information is protected by the Federal Confidentiality of Alcohol and Drug Abuse Patient Records regulations: The Federal rules restrict any use of the information to criminally investigate or prosecute any alcohol or drug abuse patient.[facility] [place]In the event this information is protected by the Federal Confidentiality of Alcohol and Drug Abuse Patient Records regulations: The Federal rules restrict any use of the information to criminally investigate or prosecute any alcohol or drug abuse patient.[facility] [place]In the event this information is protected by the Federal Confidentiality of Alcohol and Drug Abuse Patient Records regulations: The Federal rules restrict any use of the information to criminally investigate or prosecute any alcohol or drug abuse patient.[facility] [place]In the event this information is protected by the Federal Confidentiality of Alcohol and Drug Abuse Patient Records regulations: The Federal rules restrict any use of the information to criminally investigate or prosecute any alcohol or drug abuse patient.[facility] [place]In the event this information is protected by the Federal Confidentiality of Alcohol and Drug Abuse Patient Records regulations: The Federal rules restrict any use of the information to criminally investigate or prosecute any alcohol or drug abuse patient.[facility] [place]In the event this information is protected by the Federal Confidentiality of Alcohol and Drug Abuse Patient Records regulations: The Federal rules restrict any use of the information to criminally investigate or prosecute any alcohol or drug abuse patient.[facility] [place]In the event this information is protected by the Federal Confidentiality of Alcohol and Drug Abuse Patient Records regulations: The Federal rules restrict any use of the information to criminally investigate or prosecute any alcohol or drug abuse patient.[facility] [place]In the event this information is protected by the Federal Confidentiality of Alcohol and Drug Abuse Patient Records regulations: The Federal rules restrict any use of the information to criminally investigate or prosecute any alcohol or drug abuse patient.[facility] [place]In the event this information is protected by the Federal Confidentiality of Alcohol and Drug Abuse Patient Records regulations: The Federal rules restrict any use of the information to criminally investigate or prosecute any alcohol or drug abuse patient.[facility] [place]In the event this information is protected by the Federal Confidentiality of Alcohol and Drug Abuse Patient Records regulations: The Federal rules restrict any use of the information to criminally investigate or prosecute any alcohol or drug abuse patient.[facility] [place]In the event this information is protected by the Federal Confidentiality of Alcohol and Drug Abuse Patient Records regulations: The Federal rules restrict any use of the information to criminally investigate or prosecute any alcohol or drug abuse patient.[facility] [place]In the event this information is protected by the Federal Confidentiality of Alcohol and Drug Abuse Patient Records regulations: The Federal rules restrict any use of the information to criminally investigate or prosecute any alcohol or drug abuse patient.[facility] [place]In the event this information is protected by the Federal Confidentiality of Alcohol and Drug Abuse Patient Records regulations: The Federal rules restrict any use of the information to criminally investigate or prosecute any alcohol or drug abuse patient.[facility] [place]In the event this information is protected by the Federal Confidentiality of Alcohol and Drug Abuse Patient Records regulations: The Federal rules restrict any use of the information to criminally investigate or prosecute any alcohol or drug abuse patient.[facility] [place]In the event this information is protected by the Federal Confidentiality of Alcohol and Drug Abuse Patient Records regulations: The Federal rules restrict any use of the information to criminally investigate or prosecute any alcohol or drug abuse patient.[facility] [place]In the event this information is protected by the Federal Confidentiality of Alcohol and Drug Abuse Patient Records regulations: The Federal rules restrict any use of the information to criminally investigate or prosecute any alcohol or drug abuse patient.[facility] [place]In the event this information is protected by the Federal Confidentiality of Alcohol and Drug Abuse Patient Records regulations: The Federal rules restrict any use of the information to criminally investigate or prosecute any alcohol or drug abuse patient.[facility] [place]In the event this information is protected by the Federal Confidentiality of Alcohol and Drug Abuse Patient Records regulations: The Federal rules restrict any use of the information to criminally investigate or prosecute any alcohol or drug abuse patient.[facility] [place]In the event this information is protected by the Federal Confidentiality of Alcohol and Drug Abuse Patient Records regulations: The Federal rules restrict any use of the information to criminally investigate or prosecute any alcohol or drug abuse patient.[facility] [place]In the event this information is protected by the Federal Confidentiality of Alcohol and Drug Abuse Patient Records regulations: The Federal rules restrict any use of the information to criminally investigate or prosecute any alcohol or drug abuse patient.[facility] [place]In the event this information is protected by the Federal Confidentiality of Alcohol and Drug Abuse Patient Records regulations: The Federal rules restrict any use of the information to criminally investigate or prosecute any alcohol or drug abuse patient.[facility] [place]In the event this information is protected by the Federal Confidentiality of Alcohol and Drug Abuse Patient Records regulations: The Federal rules restrict any use of the information to criminally investigate or prosecute any alcohol or drug abuse patient.[facility] [place]In the event this information is protected by the Federal Confidentiality of Alcohol and Drug Abuse Patient Records regulations: The Federal rules restrict any use of the information to criminally investigate or prosecute any alcohol or drug abuse patient.[facility] [place]In the event this information is protected by the Federal Confidentiality of Alcohol and Drug Abuse Patient Records regulations: The Federal rules restrict any use of the information to criminally investigate or prosecute any alcohol or drug abuse patient.[facility] [place]In the event this information is protected by the Federal Confidentiality of Alcohol and Drug Abuse Patient Records regulations: The Federal rules restrict any use of the information to criminally investigate or prosecute any alcohol or drug abuse patient.[facility] [place]In the event this information is protected by the Federal Confidentiality of Alcohol and Drug Abuse Patient Records regulations: The Federal rules restrict any use of the information to criminally investigate or prosecute any alcohol or drug abuse patient.[facility] [place]In the event this information is protected by the Federal Confidentiality of Alcohol and Drug Abuse Patient Records regulations: The Federal rules restrict any use of the information to criminally investigate or prosecute any alcohol or drug abuse patient.[facility] [place]In the event this information is protected by the Federal Confidentiality of Alcohol and Drug Abuse Patient Records regulations: The Federal rules restrict any use of the information to criminally investigate or prosecute any alcohol or drug abuse patient.[facility] [place]In the event this information is protected by the Federal Confidentiality of Alcohol and Drug Abuse Patient Records regulations: The Federal rules restrict any use of the information to criminally investigate or prosecute any alcohol or drug abuse patient.[facility] [place]In the event this information is protected by the Federal Confidentiality of Alcohol and Drug Abuse Patient Records regulations: The Federal rules restrict any use of the information to criminally investigate or prosecute any alcohol or drug abuse patient.[facility] [place]In the event this information is protected by the Federal Confidentiality of Alcohol and Drug Abuse Patient Records regulations: The Federal rules restrict any use of the information to criminally investigate or prosecute any alcohol or drug abuse patient.[facility] [place]In the event this information is protected by the Federal Confidentiality of Alcohol and Drug Abuse Patient Records regulations: The Federal rules restrict any use of the information to criminally investigate or prosecute any alcohol or drug abuse patient.[facility] [place]In the event this information is protected by the Federal Confidentiality of Alcohol and Drug Abuse Patient Records regulations: The Federal rules restrict any use of the information to criminally investigate or prosecute any alcohol or drug abuse patient.[facility] [place]In the event this information is protected by the Federal Confidentiality of Alcohol and Drug Abuse Patient Records regulations: The Federal rules restrict any use of the information to criminally investigate or prosecute any alcohol or drug abuse patient.[facility] [place]In the event this information is protected by the Federal Confidentiality of Alcohol and Drug Abuse Patient Records regulations: The Federal rules restrict any use of the information to criminally investigate or prosecute any alcohol or drug abuse patient.[facility] [place]In the event this information is protected by the Federal Confidentiality of Alcohol and Drug Abuse Patient Records regulations: The Federal rules restrict any use of the information to criminally investigate or prosecute any alcohol or drug abuse patient.[facility] [place]In the event this information is protected by the Federal Confidentiality of Alcohol and Drug Abuse Patient Records regulations: The Federal rules restrict any use of the information to criminally investigate or prosecute any alcohol or drug abuse patient.[facility] [place]In the event this information is protected by the Federal Confidentiality of Alcohol and Drug Abuse Patient Records regulations: The Federal rules restrict any use of the information to criminally investigate or prosecute any alcohol or drug abuse patient.[facility] [facility] [place]In the event this information is protected by the Federal Confidentiality of Alcohol and Drug Abuse Patient Records regulations: The Federal rules restrict any use of the information to criminally investigate or prosecute any alcohol or drug abuse patient.[facility] [place]In the event this information is protected by the Federal Confidentiality of Alcohol and Drug Abuse Patient Records regulations: The Federal rules restrict any use of the information to criminally investigate or prosecute any alcohol or drug abuse patient.[facility] [place]In the event this information is protected by the Federal Confidentiality of Alcohol and Drug Abuse Patient Records regulations: The Federal rules restrict any use of the information to criminally investigate or prosecute any alcohol or drug abuse patient.[facility] [place]In the event this information is protected by the Federal Confidentiality of Alcohol and Drug Abuse Patient Records regulations: The Federal rules restrict any use of the information to criminally investigate or prosecute any alcohol or drug abuse patient.[facility] [place]In the event this information is protected by the Federal Confidentiality of Alcohol and Drug Abuse Patient Records regulations: The Federal rules restrict any use of the information to criminally investigate or prosecute any alcohol or drug abuse patient.[facility] [place]In the event this information is protected by the Federal Confidentiality of Alcohol and Drug Abuse Patient Records regulations: The Federal rules restrict any use of the information to criminally investigate or prosecute any alcohol or drug abuse patient.[facility] [place]In the event this information is protected by the Federal Confidentiality of Alcohol and Drug Abuse Patient Records regulations: The Federal rules restrict any use of the information to criminally investigate or prosecute any alcohol or drug abuse patient.[facility] [place]In the event this information is protected by the Federal Confidentiality of Alcohol and Drug Abuse Patient Records regulations: The Federal rules restrict any use of the information to criminally investigate or prosecute any alcohol or drug abuse patient.[facility] [place]In the event this information is protected by the Federal Confidentiality of Alcohol and Drug Abuse Patient Records regulations: The Federal rules restrict any use of the information to criminally investigate or prosecute any alcohol or drug abuse patient.[facility] [place]In the event this information is protected by the Federal Confidentiality of Alcohol and Drug Abuse Patient Records regulations: The Federal rules restrict any use of the information to criminally investigate or prosecute any alcohol or drug abuse patient.[facility] [place]In the event this information is protected by the Federal Confidentiality of Alcohol and Drug Abuse Patient Records regulations: The Federal rules restrict any use of the information to criminally investigate or prosecute any alcohol or drug abuse patient.[facility] [place]In the event this information is protected by the Federal Confidentiality of Alcohol and Drug Abuse Patient Records regulations: The Federal rules restrict any use of the information to criminally investigate or prosecute any alcohol or drug abuse patient.[facility] [place]In the event this information is protected by the Federal Confidentiality of Alcohol and Drug Abuse Patient Records regulations: The Federal rules restrict any use of the information to criminally investigate or prosecute any alcohol or drug abuse patient.[facility] [place]In the event this information is protected by the Federal Confidentiality of Alcohol and Drug Abuse Patient Records regulations: The Federal rules restrict any use of the information to criminally investigate or prosecute any alcohol or drug abuse patient.[facility] [place]In the event this information is protected by the Federal Confidentiality of Alcohol and Drug Abuse Patient Records regulations: The Federal rules restrict any use of the information to criminally investigate or prosecute any alcohol or drug abuse patient.[facility] [place]In the event this information is protected by the Federal Confidentiality of Alcohol and Drug Abuse Patient Records regulations: The Federal rules restrict any use of the information to criminally investigate or prosecute any alcohol or drug abuse patient.[facility] [place]In the event this information is protected by the Federal Confidentiality of Alcohol and Drug Abuse Patient Records regulations: The Federal rules restrict any use of the information to criminally investigate or prosecute any alcohol or drug abuse patient.[facility] [place]In the event this information is protected by the Federal Confidentiality of Alcohol and Drug Abuse Patient Records regulations: The Federal rules restrict any use of the information to criminally investigate or prosecute any alcohol or drug abuse patient.[facility] [place]In the event this information is protected by the Federal Confidentiality of Alcohol and Drug Abuse Patient Records regulations: The Federal rules restrict any use of the information to criminally investigate or prosecute any alcohol or drug abuse patient.[facility] [place]In the event this information is protected by the Federal Confidentiality of Alcohol and Drug Abuse Patient Records regulations: The Federal rules restrict any use of the information to criminally investigate or prosecute any alcohol or drug abuse patient.[facility] [place]In the event this information is protected by the Federal Confidentiality of Alcohol and Drug Abuse Patient Records regulations: The Federal rules restrict any use of the information to criminally investigate or prosecute any alcohol or drug abuse patient.[facility] [place]In the event this information is protected by the Federal Confidentiality of Alcohol and Drug Abuse Patient Records regulations: The Federal rules restrict any use of the information to criminally investigate or prosecute any alcohol or drug abuse patient.[facility] [place]In the event this information is protected by the Federal Confidentiality of Alcohol and Drug Abuse Patient Records regulations: The Federal rules restrict any use of the information to criminally investigate or prosecute any alcohol or drug abuse patient.[facility] [place]In the event this information is protected by the Federal Confidentiality of Alcohol and Drug Abuse Patient Records regulations: The Federal rules restrict any use of the information to criminally investigate or prosecute any alcohol or drug abuse patient.[facility] [place]In the event this information is protected by the Federal Confidentiality of Alcohol and Drug Abuse Patient Records regulations: The Federal rules restrict any use of the information to criminally investigate or prosecute any alcohol or drug abuse patient.[facility] [place]In the event this information is protected by the Federal Confidentiality of Alcohol and Drug Abuse Patient Records regulations: The Federal rules restrict any use of the information to criminally investigate or prosecute any alcohol or drug abuse patient.[facility] [place]In the event this information is protected by the Federal Confidentiality of Alcohol and Drug Abuse Patient Records regulations: The Federal rules restrict any use of the information to criminally investigate or prosecute any alcohol or drug abuse patient.[facility] [place]In the event this information is protected by the Federal Confidentiality of Alcohol and Drug Abuse Patient Records regulations: The Federal rules restrict any use of the information to criminally investigate or prosecute any alcohol or drug abuse patient.[facility] [place]In the event this information is protected by the Federal Confidentiality of Alcohol and Drug Abuse Patient Records regulations: The Federal rules restrict any use of the information to criminally investigate or prosecute any alcohol or drug abuse patient.[facility] [place]In the event this information is protected by the Federal Confidentiality of Alcohol and Drug Abuse Patient Records regulations: The Federal rules restrict any use of the information to criminally investigate or prosecute any alcohol or drug abuse patient.[facility] [place]In the event this information is protected by the Federal Confidentiality of Alcohol and Drug Abuse Patient Records regulations: The Federal rules restrict any use of the information to criminally investigate or prosecute any alcohol or drug abuse patient.[facility] [place]In the event this information is protected by the Federal Confidentiality of Alcohol and Drug Abuse Patient Records regulations: The Federal rules restrict any use of the information to criminally investigate or prosecute any alcohol or drug abuse patient.[facility] [place]In the event this information is protected by the Federal Confidentiality of Alcohol and Drug Abuse Patient Records regulations: The Federal rules restrict any use of the information to criminally investigate or prosecute any alcohol or drug abuse patient.[facility] [place]In the event this information is protected by the Federal Confidentiality of Alcohol and Drug Abuse Patient Records regulations: The Federal rules restrict any use of the information to criminally investigate or prosecute any alcohol or drug abuse patient.[facility] [place]In the event this information is protected by the Federal Confidentiality of Alcohol and Drug Abuse Patient Records regulations: The Federal rules restrict any use of the information to criminally investigate or prosecute any alcohol or drug abuse patient.[facility] [place]In the event this information is protected by the Federal Confidentiality of Alcohol and Drug Abuse Patient Records regulations: The Federal rules restrict any use of the information to criminally investigate or prosecute any alcohol or drug abuse patient.[facility] [place]In the event this information is protected by the Federal Confidentiality of Alcohol and Drug Abuse Patient Records regulations: The Federal rules restrict any use of the information to criminally investigate or prosecute any alcohol or drug abuse patient.[facility] [place]In the event this information is protected by the Federal Confidentiality of Alcohol and Drug Abuse Patient Records regulations: The Federal rules restrict any use of the information to criminally investigate or prosecute any alcohol or drug abuse patient.[facility] [place]In the event this information is protected by the Federal Confidentiality of Alcohol and Drug Abuse Patient Records regulations: The Federal rules restrict any use of the information to criminally investigate or prosecute any alcohol or drug abuse patient.[facility] [place]In the event this information is protected by the Federal Confidentiality of Alcohol and Drug Abuse Patient Records regulations: The Federal rules restrict any use of the information to criminally investigate or prosecute any alcohol or drug abuse patient.[facility] [place]In the event this information is protected by the Federal Confidentiality of Alcohol and Drug Abuse Patient Records regulations: The Federal rules restrict any use of the information to criminally investigate or prosecute any alcohol or drug abuse patient.[facility] [place]In the event this information is protected by the Federal Confidentiality of Alcohol and Drug Abuse Patient Records regulations: The Federal rules restrict any use of the information to criminally investigate or prosecute any alcohol or drug abuse patient.[facility] [place]In the event this information is protected by the Federal Confidentiality of Alcohol and Drug Abuse Patient Records regulations: The Federal rules restrict any use of the information to criminally investigate or prosecute any alcohol or drug abuse patient.[facility] [place]In the event this information is protected by the Federal Confidentiality of Alcohol and Drug Abuse Patient Records regulations: The Federal rules restrict any use of the information to criminally investigate or prosecute any alcohol or drug abuse patient.[facility] [place]In the event this information is protected by the Federal Confidentiality of Alcohol and Drug Abuse Patient Records regulations: The Federal rules restrict any use of the information to criminally investigate or prosecute any alcohol or drug abuse patient.[facility] [place]In the event this information is protected by the Federal Confidentiality of Alcohol and Drug Abuse Patient Records regulations: The Federal rules restrict any use of the information to criminally investigate or prosecute any alcohol or drug abuse patient.[facility] [place]In the event this information is protected by the Federal Confidentiality of Alcohol and Drug Abuse Patient Records regulations: The Federal rules restrict any use of the information to criminally investigate or prosecute any alcohol or drug abuse patient.[facility] [place]In the event this information is protected by the Federal Confidentiality of Alcohol and Drug Abuse Patient Records regulations: The Federal rules restrict any use of the information to criminally investigate or prosecute any alcohol or drug abuse patient.[facility] [place]In the event this information is protected by the Federal Confidentiality of Alcohol and Drug Abuse Patient Records regulations: The Federal rules restrict any use of the information to criminally investigate or prosecute any alcohol or drug abuse patient.[facility] [place]In the event this information is protected by the Federal Confidentiality of Alcohol and Drug Abuse Patient Records regulations: The Federal rules restrict any use of the information to criminally investigate or prosecute any alcohol or drug abuse patient.[facility] [place]In the event this information is protected by the Federal Confidentiality of Alcohol and Drug Abuse Patient Records regulations: The Federal rules restrict any use of the information to criminally investigate or prosecute any alcohol or drug abuse patient.[facility] [place]In the event this information is protected by the Federal Confidentiality of Alcohol and Drug Abuse Patient Records regulations: The Federal rules restrict any use of the information to criminally investigate or prosecute any alcohol or drug abuse patient.[facility] [place]In the event this information is protected by the Federal Confidentiality of Alcohol and Drug Abuse Patient Records regulations: The Federal rules restrict any use of the information to criminally investigate or prosecute any alcohol or drug abuse patient.[facility] [place]In the event this information is protected by the Federal Confidentiality of Alcohol and Drug Abuse Patient Records regulations: The Federal rules restrict any use of the information to criminally investigate or prosecute any alcohol or drug abuse patient.[facility] [place]In the event this information is protected by the Federal Confidentiality of Alcohol and Drug Abuse Patient Records regulations: The Federal rules restrict any use of the information to criminally investigate or prosecute any alcohol or drug abuse patient.[facility] [place]In the event this information is protected by the Federal Confidentiality of Alcohol and Drug Abuse Patient Records regulations: The Federal rules restrict any use of the information to criminally investigate or prosecute any alcohol or drug abuse patient.[facility] [place]In the event this information is protected by the Federal Confidentiality of Alcohol and Drug Abuse Patient Records regulations: The Federal rules restrict any use of the information to criminally investigate or prosecute any alcohol or drug abuse patient.[facility] [place]In the event this information is protected by the Federal Confidentiality of Alcohol and Drug Abuse Patient Records regulations: The Federal rules restrict any use of the information to criminally investigate or prosecute any alcohol or drug abuse patient.[facility] [place]In the event this information is protected by the Federal Confidentiality of Alcohol and Drug Abuse Patient Records regulations: The Federal rules restrict any use of the information to criminally investigate or prosecute any alcohol or drug abuse patient.[facility] [place]In the event this information is protected by the Federal Confidentiality of Alcohol and Drug Abuse Patient Records regulations: The Federal rules restrict any use of the information to criminally investigate or prosecute any alcohol or drug abuse patient.[facility] [place]In the event this information is protected by the Federal Confidentiality of Alcohol and Drug Abuse Patient Records regulations: The Federal rules restrict any use of the information to criminally investigate or prosecute any alcohol or drug abuse patient.[facility] [place]In the event this information is protected by the Federal Confidentiality of Alcohol and Drug Abuse Patient Records regulations: The Federal rules restrict any use of the information to criminally investigate or prosecute any alcohol or drug abuse patient.[facility] [place]In the event this information is protected by the Federal Confidentiality of Alcohol and Drug Abuse Patient Records regulations: The Federal rules restrict any use of the information to criminally investigate or prosecute any alcohol or drug abuse patient.[facility] [place]In the event this information is protected by the Federal Confidentiality of Alcohol and Drug Abuse Patient Records regulations: The Federal rules restrict any use of the information to criminally investigate or prosecute any alcohol or drug abuse patient.[facility] [place]In the event this information is protected by the Federal Confidentiality of Alcohol and Drug Abuse Patient Records regulations: The Federal rules restrict any use of the information to criminally investigate or prosecute any alcohol or drug abuse patient.[facility] [place]In the event this information is protected by the Federal Confidentiality of Alcohol and Drug Abuse Patient Records regulations: The Federal rules restrict any use of the information to criminally investigate or prosecute any alcohol or drug abuse patient.[facility] [place]In the event this information is protected by the Federal Confidentiality of Alcohol and Drug Abuse Patient Records regulations: The Federal rules restrict any use of the information to criminally investigate or prosecute any alcohol or drug abuse patient.[facility] [place]In the event this information is protected by the Federal Confidentiality of Alcohol and Drug Abuse Patient Records regulations: The Federal rules restrict any use of the information to criminally investigate or prosecute any alcohol or drug abuse patient.[facility] [place]In the event this information is protected by the Federal Confidentiality of Alcohol and Drug Abuse Patient Records regulations: The Federal rules restrict any use of the information to criminally investigate or prosecute any alcohol or drug abuse patient.[facility] [place]In the event this information is protected by the Federal Confidentiality of Alcohol and Drug Abuse Patient Records regulations: The Federal rules restrict any use of the information to criminally investigate or prosecute any alcohol or drug abuse patient.[facility] [place]In the event this information is protected by the Federal Confidentiality of Alcohol and Drug Abuse Patient Records regulations: The Federal rules restrict any use of the information to criminally investigate or prosecute any alcohol or drug abuse patient.[facility] [place]In the event this information is protected by the Federal Confidentiality of Alcohol and Drug Abuse Patient Records regulations: The Federal rules restrict any use of the information to criminally investigate or prosecute any alcohol or drug abuse patient.[facility] [place]In the event this information is protected by the Federal Confidentiality of Alcohol and Drug Abuse Patient Records regulations: The Federal rules restrict any use of the information to criminally investigate or prosecute any alcohol or drug abuse patient.[facility] [place]In the event this information is protected by the Federal Confidentiality of Alcohol and Drug Abuse Patient Records regulations: The Federal rules restrict any use of the information to criminally investigate or prosecute any alcohol or drug abuse patient.[facility] [place]In the event this information is protected by the Federal Confidentiality of Alcohol and Drug Abuse Patient Records regulations: The Federal rules restrict any use of the information to criminally investigate or prosecute any alcohol or drug abuse patient.[facility] [place]In the event this information is protected by the Federal Confidentiality of Alcohol and Drug Abuse Patient Records regulations: The Federal rules restrict any use of the information to criminally investigate or prosecute any alcohol or drug abuse patient.[facility] [place]In the event this information is protected by the Federal Confidentiality of Alcohol and Drug Abuse Patient Records regulations: The Federal rules restrict any use of the information to criminally investigate or prosecute any alcohol or drug abuse patient.[facility] [place]In the event this information is protected by the Federal Confidentiality of Alcohol and Drug Abuse Patient Records regulations: The Federal rules restrict any use of the information to criminally investigate or prosecute any alcohol or drug abuse patient.[facility] the event this information is protected by the Federal Confidentiality of Alcohol and Drug Abuse Patient Records regulations: The Federal rules restrict any use of the information to criminally investigate or prosecute any alcohol or drug abuse patient.[facility]In the event this information is protected by the Federal Confidentiality of Alcohol and Drug Abuse Patient Records regulations: The Federal rules restrict any use of the information to criminally investigate or prosecute any alcohol or drug abuse patient.[facility]In the event this information is protected by the Federal Confidentiality of Alcohol and Drug Abuse Patient Records regulations: The Federal rules restrict any use of the information to criminally investigate or prosecute any alcohol or drug abuse patient.[facility]In the event this information is protected by the Federal Confidentiality of Alcohol and Drug Abuse Patient Records regulations: The Federal rules restrict any use of the information to criminally investigate or prosecute any alcohol or drug abuse patient.[facility]In the event this information is protected by the Federal Confidentiality of Alcohol and Drug Abuse Patient Records regulations: The Federal rules restrict any use of the information to criminally investigate or prosecute any alcohol or drug abuse patient.[facility]In the event this information is protected by the Federal Confidentiality of Alcohol and Drug Abuse Patient Records regulations: The Federal rules restrict any use of the information to criminally investigate or prosecute any alcohol or drug abuse patient.[facility]In the event this information is protected by the Federal Confidentiality of Alcohol and Drug Abuse Patient Records regulations: The Federal rules restrict any use of the information to criminally investigate or prosecute any alcohol or drug abuse patient.[facility]In the event this information is protected by the Federal Confidentiality of Alcohol and Drug Abuse Patient Records regulations: The Federal rules restrict any use of the information to criminally investigate or prosecute any alcohol or drug abuse patient.[facility]hillIn the event this information is protected by the Federal Confidentiality of Alcohol and Drug Abuse Patient Records regulations: The Federal rules restrict any use of the information to criminally investigate or prosecute any alcohol or drug abuse patient.[facility]hillIn the event this information is protected by the Federal Confidentiality of Alcohol and Drug Abuse Patient Records regulations: The Federal rules restrict any use of the information to criminally investigate or prosecute any alcohol or drug abuse patient.[facility]hillIn the event this information is protected by the Federal Confidentiality of Alcohol and Drug Abuse Patient Records regulations: The Federal rules restrict any use of the information to criminally investigate or prosecute any alcohol or drug abuse patient.[facility]hillIn the event this information is protected by the Federal Confidentiality of Alcohol and Drug Abuse Patient Records regulations: The Federal rules restrict any use of the information to criminally investigate or prosecute any alcohol or drug abuse patient.[facility]hillIn the event this information is protected by the Federal Confidentiality of Alcohol and Drug Abuse Patient Records regulations: The Federal rules restrict any use of the information to criminally investigate or prosecute any alcohol or drug abuse patient.[facility]hillIn the event this information is protected by the Federal Confidentiality of Alcohol and Drug Abuse Patient Records regulations: The Federal rules restrict any use of the information to criminally investigate or prosecute any alcohol or drug abuse patient.[facility]In the event this information is protected by the Federal Confidentiality of Alcohol and Drug Abuse Patient Records regulations: The Federal rules restrict any use of the information to criminally investigate or prosecute any alcohol or drug abuse patient.[facility]hillIn the event this information is protected by the Federal Confidentiality of Alcohol and Drug Abuse Patient Records regulations: The Federal rules restrict any use of the information to criminally investigate or prosecute any alcohol or drug abuse patient.[facility]hillIn the event this information is protected by the Federal Confidentiality of Alcohol and Drug Abuse Patient Records regulations: The Federal rules restrict any use of the information to criminally investigate or prosecute any alcohol or drug abuse patient.[facility]hillIn the event this information is protected by the Federal Confidentiality of Alcohol and Drug Abuse Patient Records regulations: The Federal rules restrict any use of the information to criminally investigate or prosecute any alcohol or drug abuse patient.[facility]hillIn the event this information is protected by the Federal Confidentiality of Alcohol and Drug Abuse Patient Records regulations: The Federal rules restrict any use of the information to criminally investigate or prosecute any alcohol or drug abuse patient.[facility]hillIn the event this information is protected by the Federal Confidentiality of Alcohol and Drug Abuse Patient Records regulations: The Federal rules restrict any use of the information to criminally investigate or prosecute any alcohol or drug abuse patient.[facility]hillIn the event this information is protected by the Federal Confidentiality of Alcohol and Drug Abuse Patient Records regulations: The Federal rules restrict any use of the information to criminally investigate or prosecute any alcohol or drug abuse patient.[facility]hillIn the event this information is protected by the Federal Confidentiality of Alcohol and Drug Abuse Patient Records regulations: The Federal rules restrict any use of the information to criminally investigate or prosecute any alcohol or drug abuse patient.[facility]hillIn the event this information is protected by the Federal Confidentiality of Alcohol and Drug Abuse Patient Records regulations: The Federal rules restrict any use of the information to criminally investigate or prosecute any alcohol or drug abuse patient.[facility]hillIn the event this information is protected by the Federal Confidentiality of Alcohol and Drug Abuse Patient Records regulations: The Federal rules restrict any use of the information to criminally investigate or prosecute any alcohol or drug abuse patient.[facility]hillIn the event this information is protected by the Federal Confidentiality of Alcohol and Drug Abuse Patient Records regulations: The Federal rules restrict any use of the information to criminally investigate or prosecute any alcohol or drug abuse patient.[facility]hillIn the event this information is protected by the Federal Confidentiality of Alcohol and Drug Abuse Patient Records regulations: The Federal rules restrict any use of the information to criminally investigate or prosecute any alcohol or drug abuse patient.[facility]hillIn the event this information is protected by the Federal Confidentiality of Alcohol and Drug Abuse Patient Records regulations: The Federal rules restrict any use of the information to criminally investigate or prosecute any alcohol or drug abuse patient.[facility]hillIn the event this information is protected by the Federal Confidentiality of Alcohol and Drug Abuse Patient Records regulations: The Federal rules restrict any use of the information to criminally investigate or prosecute any alcohol or drug abuse patient.[facility]hillIn the event this information is protected by the Federal Confidentiality of Alcohol and Drug Abuse Patient Records regulations: The Federal rules restrict any use of the information to criminally investigate or prosecute any alcohol or drug abuse patient.[facility]hillIn the event this information is protected by the Federal Confidentiality of Alcohol and Drug Abuse Patient Records regulations: The Federal rules restrict any use of the information to criminally investigate or prosecute any alcohol or drug abuse patient.[facility]In the event this information is protected by the Federal Confidentiality of Alcohol and Drug Abuse Patient Records regulations: The Federal rules restrict any use of the information to criminally investigate or prosecute any alcohol or drug abuse patient.[facility]hillIn the event this information is protected by the Federal Confidentiality of Alcohol and Drug Abuse Patient Records regulations: The Federal rules restrict any use of the information to criminally investigate or prosecute any alcohol or drug abuse patient.[facility]hillIn the event this information is protected by the Federal Confidentiality of Alcohol and Drug Abuse Patient Records regulations: The Federal rules restrict any use of the information to criminally investigate or prosecute any alcohol or drug abuse patient.[facility]hillIn the event this information is protected by the Federal Confidentiality of Alcohol and Drug Abuse Patient Records regulations: The Federal rules restrict any use of the information to criminally investigate or prosecute any alcohol or drug abuse patient.[facility]hillIn the event this information is protected by the Federal Confidentiality of Alcohol and Drug Abuse Patient Records regulations: The Federal rules restrict any use of the information to criminally investigate or prosecute any alcohol or drug abuse patient.[facility]hillIn the event this information is protected by the Federal Confidentiality of Alcohol and Drug Abuse Patient Records regulations: The Federal rules restrict any use of the information to criminally investigate or prosecute any alcohol or drug abuse patient.[facility]hillIn the event this information is protected by the Federal Confidentiality of Alcohol and Drug Abuse Patient Records regulations: The Federal rules restrict any use of the information to criminally investigate or prosecute any alcohol or drug abuse patient.[facility]hillIn the event this information is protected by the Federal Confidentiality of Alcohol and Drug Abuse Patient Records regulations: The Federal rules restrict any use of the information to criminally investigate or prosecute any alcohol or drug abuse patient.[facility]hillIn the event this information is protected by the Federal Confidentiality of Alcohol and Drug Abuse Patient Records regulations: The Federal rules restrict any use of the information to criminally investigate or prosecute any alcohol or drug abuse patient.[facility]hillIn the event this information is protected by the Federal Confidentiality of Alcohol and Drug Abuse Patient Records regulations: The Federal rules restrict any use of the information to criminally investigate or prosecute any alcohol or drug abuse patient.[facility]hillIn the event this information is protected by the Federal Confidentiality of Alcohol and Drug Abuse Patient Records regulations: The Federal rules restrict any use of the information to criminally investigate or prosecute any alcohol or drug abuse patient.[facility]hillIn the event this information is protected by the Federal Confidentiality of Alcohol and Drug Abuse Patient Records regulations: The Federal rules restrict any use of the information to criminally investigate or prosecute any alcohol or drug abuse patient.[facility]hillIn the event this information is protected by the Federal Confidentiality of Alcohol and Drug Abuse Patient Records regulations: The Federal rules restrict any use of the information to criminally investigate or prosecute any alcohol or drug abuse patient.[facility]hillIn the event this information is protected by the Federal Confidentiality of Alcohol and Drug Abuse Patient Records regulations: The Federal rules restrict any use of the information to criminally investigate or prosecute any alcohol or drug abuse patient.[facility]hillIn the event this information is protected by the Federal Confidentiality of Alcohol and Drug Abuse Patient Records regulations: The Federal rules restrict any use of the information to criminally investigate or prosecute any alcohol or drug abuse patient.[facility]hillIn the event this information is protected by the Federal Confidentiality of Alcohol and Drug Abuse Patient Records regulations: The Federal rules restrict any use of the information to criminally investigate or prosecute any alcohol or drug abuse patient.[facility]In the event this information is protected by the Federal Confidentiality of Alcohol and Drug Abuse Patient Records regulations: The Federal rules restrict any use of the information to criminally investigate or prosecute any alcohol or drug abuse patient.[facility]In the event this information is protected by the Federal Confidentiality of Alcohol and Drug Abuse Patient Records regulations: The Federal rules restrict any use of the information to criminally investigate or prosecute any alcohol or drug abuse patient.[facility]In the event this information is protected by the Federal Confidentiality of Alcohol and Drug Abuse Patient Records regulations: The Federal rules restrict any use of the information to criminally investigate or prosecute any alcohol or drug abuse patient.[facility]In the event this information is protected by the Federal Confidentiality of Alcohol and Drug Abuse Patient Records regulations: The Federal rules restrict any use of the information to criminally investigate or prosecute any alcohol or drug abuse patient.[facility]In the event this information is protected by the Federal Confidentiality of Alcohol and Drug Abuse Patient Records regulations: The Federal rules restrict any use of the information to criminally investigate or prosecute any alcohol or drug abuse patient.[facility]In the event this information is protected by the Federal Confidentiality of Alcohol and Drug Abuse Patient Records regulations: The Federal rules restrict any use of the information to criminally investigate or prosecute any alcohol or drug abuse patient.[facility]In the event this information is protected by the Federal Confidentiality of Alcohol and Drug Abuse Patient Records regulations: The Federal rules restrict any use of the information to criminally investigate or prosecute any alcohol or drug abuse patient.[facility]In the event this information is protected by the Federal Confidentiality of Alcohol and Drug Abuse Patient Records regulations: The Federal rules restrict any use of the information to criminally investigate or prosecute any alcohol or drug abuse patient.[facility]In the event this information is protected by the Federal Confidentiality of Alcohol and Drug Abuse Patient Records regulations: The Federal rules restrict any use of the information to criminally investigate or prosecute any alcohol or drug abuse patient.[facility]hillIn the event this information is protected by the Federal Confidentiality of Alcohol and Drug Abuse Patient Records regulations: The Federal rules restrict any use of the information to criminally investigate or prosecute any alcohol or drug abuse patient.[facility]In the event this information is protected by the Federal Confidentiality of Alcohol and Drug Abuse Patient Records regulations: The Federal rules restrict any use of the information to criminally investigate or prosecute any alcohol or drug abuse patient.[facility]hillIn the event this information is protected by the Federal Confidentiality of Alcohol and Drug Abuse Patient Records regulations: The Federal rules restrict any use of the information to criminally investigate or prosecute any alcohol or drug abuse patient.[facility]hillIn the event this information is protected by the Federal Confidentiality of Alcohol and Drug Abuse Patient Records regulations: The Federal rules restrict any use of the information to criminally investigate or prosecute any alcohol or drug abuse patient.[facility]In the event this information is protected by the Federal Confidentiality of Alcohol and Drug Abuse Patient Records regulations: The Federal rules restrict any use of the information to criminally investigate or prosecute any alcohol or drug abuse patient.[facility]hillIn the event this information is protected by the Federal Confidentiality of Alcohol and Drug Abuse Patient Records regulations: The Federal rules restrict any use of the information to criminally investigate or prosecute any alcohol or drug abuse patient.[facility] Reason for Visit (unrecogniz ed section and content) Reason Comments F/U 3 Month Specialty Diagnoses / Procedures Referred By Contac t Referred To Contact Family Medicine / FAMILY MEDICINE Diagnoses Follow-up exam, 3-6 months since previous exam 3 month medication follow up Procedures OFFICE/OUTPATIENT ESTABLISHED HIGH MDM 40 MIN 4C EST Teri Gruber APRN.INFO SPECIALIST [address] [place] [address] Phone: tel: fax: Teri Gruber APRN.INFO SPECIALIST [address] [place] [address] Phone: tel: fax: Referral ID Status Reason Start Date Expiration Date V isits Requested Visits Authorized [id number] Authorized 05/05/2024 04/05/2025 99 99 Reason Comments Anticoagulation Specialty Diagnoses / Procedures Referred By Contac t Referred To Contact Internal Medicine / COUMADIN [facility] Diagnoses INR needed for tooth extraction. Procedures EST Franc Hughes MD [address] [place] [address] Anticoag [facility] [address] [place] [address] Referral ID Status Reason Start Date Expiration Date V isits Requested Visits Authorized [id number] Pending Review 01/16/2022 04/16/2022 1 1 Reason [...] 5 NEW CLINICAL PATIENT Iglesia Ansari MD [address] [place] [address] Mj Dos Santos MD [address] [place] [address] Referral ID Status Reason Start Date Expiration Date Visits Re quested Visits Authorized [id number] Closed 02/13/2021 04/05/2021 1 1 Reason Comments [...] Procedures EST DDI PATIENT Micah Rosenberg MD [address] [place] [id number] Cyndy Parker PA-C [address] [place] [address] Referral ID Status Reason Start Date Expiration Date Visits Re quested Visits Authorized [id number] Closed 11/04/2021 04/05/2022 1 1 Reason Comments [...] Kvng Yan MD [address] [place] [address] Referral ID Status Reason Start Date Expiration Date Visits Re quested Visits Authorized [id number] Closed 11/28/2021 04/05/2022 1 1 Reason Comments [...] Specialty Diagnoses / Procedures [facility] Ref[facility] To Contact Internal Medicine / INTERNAL MEDICINE Diagnoses transferring care Procedures OFFICE/OUTPATIENT ESTABLISHED HIGH MDM 40-54 MIN 4C EST WELL Self Bonnie Sharif APRN.SMALL ARMS REPAIRER [address] [place] [address] Referral ID Status Reason Start Date Expiration Date Visits Re quested Visits Authorized [id number] Closed 01/20/2022 04/05/2022 1 1 Reason Comments [...] MDM 60-74 MINUTES Franc Hills MD [address] [place] [address] Referral ID Status Reason Start Date Expiration Date Visits Requested Visits Authorized [id number] Pending Review PCP Requested Referral 09/24/2022 09/24/2023 1 1 Reason Comments Appointment Specialty Diagnoses / Procedures Referred By Contac t Referred To Contact Internal Medicine / INTERNAL MEDICINE Diagnoses 3 Month follow up Procedures 4C EST Self Franc Hills MD [address] [place] [address] Referral ID Status Reason Start Date Expiration Date V isits Requested Visits Authorized [id number] Outside PCP 11/24/2022 02/22/2023 1 1 Reason Comments Patient Update Anticoagulation hold for 11/26/22 Reason Comments Macular Hole Follow Up Specialty Diagnoses / Procedures Referred By Contac t Referred To Contact Ophthalmology / OPHTHALMOLOGY Diagnoses Annual Procedures EST ADULT Self Kvng Magaña MD [address] [place] [address] Referral ID Status Reason Start Date Expiration Date V isits Requested Visits Authorized [id number] Outside PCP 12/09/2022 03/09/2023 1 1 Reason [...] MDM 60-74 MINUTES Franc Hills MD [address] [place] [address] Referral ID Status Reason Start Date Expiration Date Visits Requested Visits Authorized [id number] Pending Review PCP Requested Referral 10/07/2022 10/07/2023 [...] CANAL LUMBAR W/O CONTRAST MATERIAL Zeny Lam APRN.INFO SPECIALIST [address] [place] [address] [facility] [place] [address] Referral ID Status Reason Start Date Expiration Date V isits Requested Visits Authorized [id number] Closed Auto-Generate d Referral 05/29/2023 09/04/2023 1 [...] EVALUATION HIGH COMPLEX 45 MINS Zeny Lam APRN.INFO SPECIALIST [address] [place] [address] [facility] [address] [place] [address] Referral ID Status Reason Start Date Expiration Date Visits Requested Visits Authorized [id number] Authorized Auto-Generat ed Referral 04/06/2023 04/05/2024 99 [...] tract symptoms Procedures CONSULT TO UROLOGY OFFICE/OUTPATIENT [facility] 60 MINUTES Franc Hills MD [address] [place] [phone] Referral ID Status Reason Start Date Expiration Date V isits Requested Visits Authorized [id number] Closed PCP Requested Referral 07/18/2023 07/17/2024 1 [...] CONSULT TO WELLNESS NON-PHARMACOLOGIC PAIN MANAGEMENT OFFICE/OUTPATIENT [facility] 60 MINUTES Zeny Lam APRN.INFO SPECIALIST [address] [place] [address] Referral ID Status Reason Start Date Expiration Date V isits Requested Visits Authorized [id number] Closed PCP Requested Referral 06/29/2023 06/28/2024 1 [...] [place] ACUPUNCTURE Irene Moraes MD 1951 [place] [id number] Walt Yang R [address] [place] [id number] Referral ID Status Reason Start Date Expiration Date Visits Requested Visits Authorized [id number] Authorized Patient Cleared Patient agrees to sign [...] Referred By Contac t Referred To Contact [facility] Diagnoses Unspecified injury of right wrist, hand and finger(s), initial encounter wrist xr Procedures X-RAY WRIST COMPLET MIN 3 VIEWS wrist xr Kvng Freire APRN.INFO SPECIALIST [address] [place] [address] [facility] [address] [place] [address] Referral ID Status Reason Start Date Expiration Date V isits Requested Visits Authorized [id number] Closed OON/Self Pay Override 01/13/2020 04/05/2020 1 1 Reason Comments ED Follow-up lightheadedness, lexi vated bp [facility] ER 01/08/24 Reason Comments Blood Pressure [...] CT HEAD/BRAIN W/O CONTRAST MATERIAL Zeny Lam VINYL CUTTER.INFO SPECIALIST [address] [place] [address] [facility] [place] [address] Referral ID Status Reason Start Date Expiration Date V isits Requested Visits Authorized [id number] Closed Auto-Generate d Referral 02/15/2024 03/16/2025 1 [...] STRESS/PHARM MYOCARDIAL SPECT MULTIPLE STUDIES Teri Gruber, VINYL CUTTER.INFO SPECIALIST [address] [place] [address] Phone: tel: fax: Molecular Imaging [address] [place] [address] Phone: tel: Referral ID Status Reason Start Date Expiration Date V isits Requested Visits Authorized [id number] Closed Auto-Generate d Referral 05/17/2024 06/16/2025 1 [...] EXHALED NITRIC OXIDE GAS DETERMINATION Zeny Lam APRN.INFO SPECIALIST [address] [place] [address] Phone: tel: fax: Respiratory [address] [address] Referral ID Status Reason Start Date Expiration Date V isits Requested Visits Authorized [id number] Closed Auto-Generate d Referral 07/25/2024 08/24/2025 1 1 Specialty Diagnoses / Procedures [facility] Diagnoses Shortness of breath Procedures SPIROMETRY WITH DILATOR IF OBSTRUCTED BRNCDILAT RSPSE SPMTRY PRE&POST-BRNCDILAT ADMN Zeny Lam APRN.INFO SPECIALIST [address] [place] [address] Phone: tel: fax: [address] [address] Referral ID Status Reason Start Date Expiration Date V isits Requested Visits Authorized [id number] Closed Auto-Generate d Referral 07/25/2024 08/24/2025 1 1 Specialty Diagnoses / Procedures [facility] Referred To Contact [facility] Diagnoses Shortness of breath Procedures LUNG DIFFUSION CAPACITY (DLCO) DIFFUSING CAPACITY Zeny Lam APRN.INFO SPECIALIST [address] [place] [address] Phone: tel: fax: [address] [address] Referral ID Status Reason Start Date Expiration Date V isits Requested Visits Authorized [id number] Closed Auto-Generate d Referral 07/25/2024 08/24/2025 1 [...] MDM 40 MIN 4C EST WELL [facility] [address] [place] [address] Phone: tel: Zeny Lam APRN.CNP [address] [place] [address] Phone: tel: fax: Referral ID Status Reason Start Date Expiration Date V isits Requested Visits Authorized [id number] Authorized 04/06/2024 04/05/2025 99 99 Reason Onset Date Comments Refill Request 09/05/2024 Reason Onset Date Comments Refill Request 09/08/2024 Reason Onset Date Comments Anticoagulation 09/21/2024 Reason Comments New Patient Dyspnea Reason Comments Medication Question bp reading Reason Comments Patient Update Thank you Reason Comments F/U 3 Month Care Teams (unrecognized sec tion and content) Bartender Manager Relationship Specialty Start Date End Date Franc Hills MD [address] [place], [place] 162791 PCP - General 05/30/09 Mckinley Jaramillo, DO [address] [place], [place] [id number] Consulting Hematology/Oncology 05/16/14 Mj Dos Santos MD [address] [place] [address] Epic Cupid Analyst Cardiology 03/01/21 04/17/89 Bartender Manager Relationship Specialty Start Date End Date Franc Hills MD [address] [place], [place] [id number] PCP - General 05/30/09 Mckinely Jaramillo, DO [address] [place], [place] [id number] Consulting Hematology/Oncology 05/16/14 Mj Dos Santos MD [address] [place] [address] Epic Cupid Analyst Cardiology 03/01/21 04/17/89 Bartender Manager Relationship Specialty Start Date End Date Franc Hills MD [address] [facility] [address] PCP - General 05/30/09 Mckinley Jaramillo, DO [address] [place] [address] Consulting Hematology/Oncology 05/16/14 Mj Dos Santos MD [address] [place] [address] Epic Cupid Analyst Cardiology 03/01/21 04/17/89 Bartender Manager Relationship Specialty Start Date End Date Franc Hills MD [address] [facility] [place] [address] PCP - General 05/30/09 Mckinley Jaramillo, DO [address] [place] [address] Consulting Hematology/Oncology 05/16/14 Mj Dos Santos MD [address] [place] [address] Epic Cupid Analyst Cardiology 03/01/21 04/17/89 Bartender Manager Relationship Specialty Start Date End Date Franc Hills MD [address] [facility] [place] [address] PCP - General 05/30/09 Mckinley Jaramillo, DO [address] [place] [address] Consulting Hematology/Oncology 05/16/14 Mj Dos Santos MD [address] [place] [address] Epic Cupid Analyst Cardiology 03/01/21 04/17/89 Bartender Manager Relationship Specialty Start Date End Date Franc Hills MD [address] [facility] [place] [address] PCP - General 05/30/09 Mckinley Jaramillo, DO [address] [place] [address] Consulting Hematology/Oncology 05/16/14 Mj Dos Santos MD [address] [place] [address] Epic Cupid Analyst Cardiology 03/01/21 04/17/89 Bartender Manager Relationship Specialty Start Date End Date Franc Hills MD [address] [facility] [place] [address] PCP - General 05/30/09 Mckinley Jaramillo, DO [address] [place] [address] Consulting Hematology/Oncology 05/16/14 Mj Dos Santos MD [address] [place] [address] Epic Cupid Analyst Cardiology 03/01/21 04/17/89 Bartender Manager Relationship Specialty Start Date End Date Franc Hills MD [address] [facility] [place] [address] PCP - General 05/30/09 Mckinley Jaramillo, DO [address] [place] [address] Consulting Hematology/Oncology 05/16/14 Mj Dos Santos MD [address] [place] [address] Epic Cupid Analyst Cardiology 03/01/21 04/17/89 Bartender Manager Relationship Specialty Start Date End Date Franc Hills MD [address] [place] [address] PCP - General 05/30/09 Mckinley Jaramillo, DO [address] [place] [address] Consulting Hematology/Oncology 05/16/14 Mj Dos Santos MD [address] [place] [address] Epic Cupid Analyst Cardiology 03/01/21 04/17/89 Bartender Manager Relationship Specialty Start Date End Date Franc Hills MD [address] [facility] [address] PCP - General 05/30/09 Mckinley Jaramillo, DO [address] [place] [facility] [place] [address] Consulting Hematology/Oncology 05/16/14 Mj Dos Santos MD [address] [place] [address] Epic Cupid Analyst Cardiology 03/01/21 04/17/89 Bartender Manager Relationship Specialty Start Date End Date Franc Hills MD [address] [facility] [address] PCP - General 05/30/09 Mckinley Jaramillo, DO [address] [place] [facility] [place] [address] Consulting Hematology/Oncology 05/16/14 Mj Dos Santos MD [address] [place] [address] Epic Cupid Analyst Cardiology 03/01/21 04/17/89 Bartender Manager Relationship Specialty Start Date End Date Franc Hills MD [address] [facility] [address] PCP - General 05/30/09 Mckinley Jaramillo, DO [address] [place] [facility] [place] [address] Consulting Hematology/Oncology 05/16/14 Mj Dos Santos MD [address] [place] [address] Epic Cupid Analyst Cardiology 03/01/21 04/17/89 Bartender Manager Relationship Specialty Start Date End Date Franc Hills MD [address] [facility] [address] PCP - General 05/30/09 Mckinley Jaramillo, DO [address] [place] [facility] [place] [address] Consulting Hematology/Oncology 05/16/14 Mj Dos Santos MD [address] [place] [address] Epic Cupid Analyst Cardiology 03/01/21 04/17/89 Bartender Manager Relationship Specialty Start Date End Date Franc Hills MD [address] [facility] [address] PCP - General 05/30/09 Mckinley Jaramillo, DO [address] [place] [facility] [place] [address] Consulting Hematology/Oncology 05/16/14 Mj Dos Santos MD [address] [place] [address] Epic Cupid Analyst Cardiology 03/01/21 04/17/89 Bartender Manager Relationship Specialty Start Date End Date Franc Hills MD [address] [facility] [address] PCP - General 05/30/09 Mckinley Jaramillo, DO [address] [place] [place] [address] Consulting Hematology/Oncology 05/16/14 Mj Dos Santos MD [address] [place] [address] Epic Cupid Analyst Cardiology 03/01/21 04/17/89 Bartender Manager Relationship Specialty Start Date End Date Franc Hills MD [address] [place] [address] PCP - General 05/30/09 Mckinley Jaramillo, DO [address] [place] [address] Consulting Hematology/Oncology 05/16/14 [place] [address] [place], [place] [id number] Epic Cupid Analyst Cardiology 03/01/21 04/17/89 Bartender Manager Relationship Specialty Start Date End Date Franc Hills MD [address] [place] [address] PCP - General 05/30/09 Mckinley Jaramillo, DO [address] [place] [facility] [place] [address] Consulting Hematology/Oncology 05/16/14 Mj Dos Santos MD [address] [place], [place] [id number] Epic Cupid Analyst Cardiology 03/01/21 04/17/89 Bartender Manager Relationship Specialty Start Date End Date Franc Hills MD [address] [place] [address] PCP - General 05/30/09 Mckinley Jaramillo, DO [address] [place] [place] [address] Consulting Hematology/Oncology 05/16/14 Mj Dos Santos MD [address] [place] [address] Epic Cupid Analyst Cardiology 03/01/21 04/17/89 Bartender Manager Relationship Specialty Start Date End Date Franc Hills MD [address] [facility] [address] PCP - General 05/30/09 Mckinley Jaramillo, DO [address] [place] [facility] [place] [address] Consulting Hematology/Oncology 05/16/14 Mj Dos Santos MD [address] [place] [address] Epic Cupid Analyst Cardiology 03/01/21 04/17/89 Bartender Manager Relationship Specialty Start Date End Date rFanc Hills MD [address] [facility] [address] PCP - General 05/30/09 Mckinley Jaramillo, DO [address] [place] [facility] [place] [address] Consulting Hematology/Oncology 05/16/14 Mj Dos Santos MD [address] [place] [address] Epic Cupid Analyst Cardiology 03/01/21 04/17/89 Bartender Manager Relationship Specialty Start Date End Date Mani Edwards MD [address] [facility] [address] PCP - General Internal Medicine 02/03/22 Mckinley Jaramillo, DO [address] [place] [facility] [place] [address] Consulting Hematology/Oncology 05/16/14 Mj Dos Santos MD [address] [place] [address] Epic Cupid Analyst Cardiology 03/01/21 04/17/89 Bartender Manager Relationship Specialty Start Date End Date Mani Edwards MD [address] [facility] [address] PCP - General Internal Medicine 02/03/22 Mckinley Jaramillo, DO [address] [place] [facility] [place] [address] Consulting Hematology/Oncology 05/16/14 Mj Dos Santos MD [address] [place] [address] Epic Cupid Analyst Cardiology 03/01/21 04/17/89 Bartender Manager Relationship Specialty Start Date End Date Franc Hills MD [address] [facility] [address] PCP - General Internal Medicine 02/11/22 Mckinley Jaramillo, DO [address] [place] [address] Consulting Hematology/Oncology 05/16/14 Mj Dos Santos MD [address] [place] [address] Epic Cupid Analyst Cardiology 03/01/21 04/17/89 Bartender Manager Relationship Specialty Start Date End Date Franc Hills MD [address] [facility] [address] PCP - General Internal Medicine 02/11/22 Mckinley Jaramillo, DO [address] [place] [facility] [place] [address] Consulting Hematology/Oncology 05/16/14 Mj Dos Santos MD [address] [place] [address] Epic Cupid Analyst Cardiology 03/01/21 04/17/89 Bartender Manager Relationship Specialty Start Date End Date Franc Hills MD [address] [facility] [address] PCP - General Internal Medicine 02/11/22 Mckinley Jaramillo, DO [address] [place] [address] Consulting Hematology/Oncology 05/16/14 Mj Dos Santos MD [address] [place] [address] Epic Cupid Analyst Cardiology 03/01/21 04/17/89 Bartender Manager Relationship Specialty Start Date End Date Franc Hills MD [address] [place] [address] PCP - General Internal Medicine 02/11/22 Mckniley Jaramillo, DO [address] [place] [address] Consulting Hematology/Oncology 05/16/14 Mj Dos Santos MD [address] [place] [address] Epic Cupid Analyst Cardiology 03/01/21 04/17/89 Bartender Manager Relationship Specialty Start Date End Date Franc Hills MD [address] [place] [address] PCP - General Internal Medicine 02/11/22 Mckinley Jaramillo, DO [address] [place] [facility] [place] [address] Consulting Hematology/Oncology 05/16/14 Mj Dos Santos MD [address] [place] [address] Epic Cupid Analyst Cardiology 03/01/21 04/17/89 Bartender Manager Relationship Specialty Start Date End Date Franc Hills MD [address] [facility] [address] PCP - General Internal Medicine 02/11/22 Mckinley Jaramillo, DO [address] [place] [facility] [place] [address] Consulting Hematology/Oncology 05/16/14 Mj Dos Santos MD [address] [place] [address] Epic Cupid Analyst Cardiology 03/01/21 04/17/89 Bartender Manager Relationship Specialty Start Date End Date Franc Hills MD [address] [facility] [address] PCP - General Internal Medicine 02/11/22 Mckinley Jaramillo, DO [address] [place] [facility] [place] [address] Consulting Hematology/Oncology 05/16/14 Mj Dos Santos MD [address] [place] [address] Epic Cupid Analyst Cardiology 03/01/21 04/17/89 Bartender Manager Relationship Specialty Start Date End Date Franc Hills MD [address] [facility] [address] PCP - General Internal Medicine 02/11/22 Mckinley Jaramillo, DO [address] [place] [facility] [place] [address] Consulting Hematology/Oncology 05/16/14 Mj Dos Santos MD [address] [place] [address] Epic Cupid Analyst Cardiology 03/01/21 04/17/89 Bartender Manager Relationship Specialty Start Date End Date Franc Hills MD [address] [facility] [address] PCP - General Internal Medicine 02/11/22 Mckinley Jaramillo, DO [address] [place] [facility] [place] [address] Consulting Hematology/Oncology 05/16/14 Mj Dos Santos MD [address] [place] [address] Epic Cupid Analyst Cardiology 03/01/21 04/17/89 Bartender Manager Relationship Specialty Start Date End Date Franc Hills MD [address] [facility] [address] PCP - General Internal Medicine 02/11/22 Mckinley Jaramillo, DO [address] [place] [place] [address] Consulting Hematology/Oncology 05/16/14 Mj Dos Santos MD [address] [place] [address] Epic Cupid Analyst Cardiology 03/01/21 04/17/89 Bartender Manager Relationship Specialty Start Date End Date Franc Hills MD [address] [facility] [address] PCP - General Internal Medicine 02/11/22 Mckinley Jaramillo, DO [address] [place] [facility] [place] [address] Consulting Hematology/Oncology 05/16/14 Mj Dos Santos MD [address] [place] [address] Epic Cupid Analyst Cardiology 03/01/21 04/17/89 Bartender Manager Relationship Specialty Start Date End Date Franc Hills MD [address] [facility] [address] PCP - General Internal Medicine 02/11/22 Mckinley Jaramillo, DO [address] [place] [facility] [place] [address] Consulting Hematology/Oncology 05/16/14 Mj Dos Santos MD [address] [place] [address] Epic Cupid Analyst Cardiology 03/01/21 04/17/89 Bartender Manager Relationship Specialty Start Date End Date Franc Hills MD [address] [facility] [address] PCP - General Internal Medicine 02/11/22 Mckinley Jaramillo, DO [address] [place] [place] [address] Consulting Hematology/Oncology 05/16/14 Mj Dos Santos MD [address] [place] [address] Epic Cupid Analyst Cardiology 03/01/21 04/17/89 Bartender Manager Relationship Specialty Start Date End Date Franc Hills MD [address] [facility] [address] PCP - General Internal Medicine 02/11/22 Mckinley Jaramillo, DO [address] [place] [facility] [place] [address] Consulting Hematology/Oncology 05/16/14 Mj Dos Santos MD [address] [place] [address] Epic Cupid Analyst Cardiology 03/01/21 04/17/89 Bartender Manager Relationship Specialty Start Date End Date Franc Hills MD [address] [place] [address] PCP - General Internal Medicine 02/11/22 Mckinley Jaramillo, [address] [place] [place] [address] Consulting Hematology/Oncology 05/16/14 Mj Dos Santos MD [address] [place] [address] Epic Cupid Analyst Cardiology 03/01/21 04/17/89 Bartender Manager Relationship Specialty Start Date End Date Franc Hills MD [address] [place] [address] PCP - General Internal Medicine 02/11/22 Mckinley Jaramillo DO [address] [facility] [place] [address] Consulting Hematology/Oncology 05/16/14 Mj Dos Santos MD [address] [place] [address] Epic Cupid Analyst Cardiology 03/01/21 04/17/89 Bartender Manager Relationship Specialty Start Date End Date Franc Hills MD [address] [place] [address] PCP - General Internal Medicine 02/11/22 Mckinley Jaramillo DO [address] [place] [facility] [place] [address] Consulting Hematology/Oncology 05/16/14 Mj Dos Santos MD [address] [place], [place] 4267[address] Epic Cupid Analyst Cardiology 03/01/21 04/17/89 Bartender Manager Relationship Specialty Start Date End Date Franc Hills MD [address] [place], [place] [address] PCP - General Internal Medicine 02/11/22 Mckinley Jaramillo DO [address] [place] [address] Consulting Hematology/Oncology 05/16/14 Mj Dos Santos MD [address] [place] [address] Epic Cupid Analyst Cardiology 03/01/21 04/17/89 Bartender Manager Relationship Specialty Start Date End Date Franc Hills MD [address] [place] [address] PCP - General Internal Medicine 02/11/22 Mckinley Jaramillo DO [address] [place] [address] Consulting Hematology/Oncology 05/16/14 Mj Dos Santos MD [address] [place], [place] 547[address] Epic Cupid Analyst Cardiology 03/01/21 04/17/89 Bartender Manager Relationship Specialty Start Date End Date Franc Hills MD [address] [place] [address] PCP - General Internal Medicine 02/11/22 Mckinley Jaramillo DO [address] [place] [address] Consulting Hematology/Oncology 05/16/14 Mj Dos Santos MD [address] [place] [address] Epic Cupid Analyst Cardiology 03/01/21 04/17/89 Bartender Manager Relationship Specialty Start Date End Date Franc Hills MD [address] [place] [address] PCP - General Internal Medicine 02/11/22 Mckinley Jaramillo DO [address] [place] [address] Consulting Hematology/Oncology 05/16/14 Mj Dos Santos MD [address] [place] [address] Epic Cupid Analyst Cardiology 03/01/21 04/17/89 Bartender Manager Relationship Specialty Start Date End Date Franc Hills MD [address] [place] [address] PCP - General Internal Medicine 02/11/22 Mckinley Jaramillo DO [address] [place] [address] Consulting Hematology/Oncology 05/16/14 Mj Dos Santos MD [address] [place], [place] [address] Epic Cupid Analyst Cardiology 03/01/21 04/17/89 Bartender Manager Relationship Specialty Start Date End Date Franc Hills MD [address] [place] [address] PCP - General Internal Medicine 02/11/22 11/11/22 Franc Hills MD [address] [place] [address] PCP - General Internal Medicine 11/12/22 Mckinley Jaramillo DO [address] [place] [address] Consulting Hematology/Oncology 05/16/14 Mj Dos Santos MD [address] [place] [address] Epic Cupid Analyst Cardiology 03/01/21 04/17/89 Bartender Manager Relationship Specialty Start Date End Date Franc Hills MD [address] [place], [place] 651211 PCP - General Internal Medicine 11/12/22 Mckinley Jaramillo DO [address] [place] [address] Consulting Hematology/Oncology 05/16/14 Mj Dos Santos MD [address] [place] [address] Epic Cupid Analyst Cardiology 03/01/21 04/17/89 Bartender Manager Relationship Specialty Start Date End Date Franc Hills MD [address] [place] [address] PCP - General Internal Medicine 11/12/22 Mckinley Jaramillo DO [address] [place] [address] Consulting Hematology/Oncology 05/16/14 Mj Dos Santos MD [address] [place] [address] Epic Cupid Analyst Cardiology 03/01/21 04/17/89 Bartender Manager Relationship Specialty Start Date End Date Franc Hills MD [address] [place] [address] PCP - General Internal Medicine 11/12/22 Mckinley Jaramillo DO [address] [place] [address] Consulting Hematology/Oncology 05/16/14 Mj Dos Santos MD [address] [place] [address] Epic Cupid Analyst Cardiology 03/01/21 04/17/89 Bartender Manager Relationship Specialty Start Date End Date Franc Hills MD [address] [place] [address] PCP - General Internal Medicine 11/12/22 Mckinley Jaramillo DO [address] [place] [address] Consulting Hematology/Oncology 05/16/14 Mj Dos Santos MD [address] [place], [place] [address]194[address] Epic Cupid Analyst Cardiology 03/01/21 04/17/89 Bartender Manager Relationship Specialty Start Date End Date Franc Hills MD [address] [place] [address] PCP - General Internal Medicine 11/12/22 Mckinley Jaramillo DO [address] [place] [address] Consulting Hematology/Oncology 05/16/14 Mj Dos Santos MD [address] [facility] [address] Epic Cupid Analyst Cardiology 03/01/21 04/17/89 Bartender Manager Relationship Specialty Start Date End Date Franc Hills MD [address] [place], [place] 501431 PCP - General Internal Medicine 11/12/22 Mckinley Jaramillo DO [address] [place], [place] [address]6021 Consulting Hematology/Oncology 05/16/14 Mj Dos Santos MD [address] [facility] [address] Epic Cupid Analyst Cardiology 03/01/21 04/17/89 Bartender Manager Relationship Specialty Start Date End Date Franc Hills MD [address] [place], [place] [address]451 PCP - General Internal Medicine 11/12/22 Mckinley Jaramillo DO [address] [place] [address] Consulting Hematology/Oncology 05/16/14 Mj Dos Santos MD [address] [place] [address] Epic Cupid Analyst Cardiology 03/01/21 04/17/89 Bartender Manager Relationship Specialty Start Date End Date Franc Hills MD [address] [place] [address] PCP - General Internal Medicine 11/12/22 Mckinley Jaramillo DO [address] [place] [address] Consulting Hematology/Oncology 05/16/14 Mj Dos Santos MD [address] [place] [address] Epic Cupid Analyst Cardiology 03/01/21 04/17/89 Bartender Manager Relationship Specialty Start Date End Date Franc Hills MD [address] [place] [address] PCP - General Internal Medicine 11/12/22 Mckinley Jaramillo DO [address] [place] [address] Consulting Hematology/Oncology 05/16/14 Mj Dos Santos MD [address] [place] [address] Epic Cupid Analyst Cardiology 03/01/21 04/17/89 Bartender Manager Relationship Specialty Start Date End Date Franc Hills MD [address] [place] [address] PCP - General Internal Medicine 11/12/22 Mckinley Jaramillo DO [address] [place] [address] Consulting Hematology/Oncology 05/16/14 Mj Dos Santos MD [address] [place] [address] Epic Cupid Analyst Cardiology 03/01/21 04/17/89 Bartender Manager Relationship Specialty Start Date End Date Franc Hills MD [address] [place], [place] 766451 PCP - General Internal Medicine 11/12/22 Mckinley Jaramillo DO [address] [place], [place] 258801 Consulting Hematology/Oncology 05/16/14 Mj Dos Santos MD [address] [place] [address] Epic Cupid Analyst Cardiology 03/01/21 04/17/89 Bartender Manager Relationship Specialty Start Date End Date Franc Hills MD [address] [place] [address] PCP - General Internal Medicine 11/12/22 Mckinley Jaramillo DO [address] [place] [address] Consulting Hematology/Oncology 05/16/14 Mj Dos Santos MD [address] [place] [address] Epic Cupid Analyst Cardiology 03/01/21 04/17/89 Bartender Manager Relationship Specialty Start Date End Date Franc Hills MD [address] [place], [place] 870131 PCP - General Internal Medicine 11/12/22 Mckinley Jaramillo DO [address] [place], [place] 987551 Consulting Hematology/Oncology 05/16/14 Mj Dos Santos MD [address] [place] [address] Epic Cupid Analyst Cardiology 03/01/21 04/17/89 Bartender Manager Relationship Specialty Start Date End Date Franc Hills MD [address] [place], [place] 247151 PCP - General Internal Medicine 01/14/23 Mckinley Jaramillo DO [address] [place], [place] 124131 Consulting Hematology/Oncology 05/16/14 Mj Dos Santos MD [address] [place] [id number] Epic [facility] Analyst Cardiology 03/01/21 04/17/89 Bartender Manager Relationship Specialty Start Date End Date Franc Hills MD [address] [place], [place] 060421 PCP - General Internal Medicine 01/14/23 Mckinley Jaramillo DO [address] [place] [address] Consulting Hematology/Oncology 05/16/14 Mj Dos Santos MD [address] [place] [address] [employer] [facility] Analyst Cardiology 03/01/21 04/17/89 Bartender Manager Relationship Specialty Start Date End Date Franc Hills MD [address] [place] [address] PCP - General Internal Medicine 01/14/23 Mckinley Jaramillo DO [address] [place] [address] Consulting Hematology/Oncology 05/16/14 Mj Dos Santos MD [address] [place] [address] [employer] [facility] Analyst Cardiology 03/01/21 04/17/89 Bartender Manager Relationship Specialty Start Date End Date Franc Hills MD [address] [place] [address] PCP - General Internal Medicine 01/14/23 Mckinley Jaramillo DO [address] [place] [address] Consulting Hematology/Oncology 05/16/14 Mj Dos Santos MD [address] [place] [address] Epic [facility] Analyst Cardiology 03/01/21 04/17/89 Bartender Manager Relationship Specialty Start Date End Date Zeny Lam APRN.INFO SPECIALIST [address] [place] [address] PCP - General Internal Medicine 01/23/23 Mckinley Jaramillo DO [address] [place] [address] Consulting Hematology/Oncology 05/16/14 Mj Dos Santos MD [address] [place] [address] [employer] [facility] Analyst Cardiology 03/01/21 04/17/89 Bartender Manager Relationship Specialty Start Date End Date Zeny Lam APRN.INFO SPECIALIST [facility] [place], [place] [address]01601 PCP - General Internal Medicine 01/23/23 Mckinley Jaramillo DO [address] [place] [address] Consulting Hematology/Oncology 05/16/14 Mj Dos Santos MD [address] [place] [address] Epic [facility] Analyst Cardiology 03/01/21 04/17/89 Bartender Manager Relationship Specialty Start Date End Date Zeny Lam APRN.INFO SPECIALIST [address] [place] [address] PCP - General Internal Medicine 01/23/23 Mckinley Jaramillo DO [address] [place] [address] Consulting Hematology/Oncology 05/16/14 Mj Dos Santos MD [address] [place] [address] Epic [facility] Analyst Cardiology 03/01/21 04/17/89 Bartender Manager Relationship Specialty Start Date End Date Zeny Lam APRN.INFO SPECIALIST [address] [place] [address] PCP - General Internal Medicine 01/23/23 Mckinley Jaramillo DO [address] [place] [address] Consulting Hematology/Oncology 05/16/14 Mj Dos Santos MD [address] [place] [address] Epic [facility] Analyst Cardiology 03/01/21 04/17/89 Bartender Manager Relationship Specialty Start Date End Date Zeny Lam APRN.INFO SPECIALIST [facility] [place] [address] PCP - General Internal Medicine 01/23/23 Mckinley Jaramillo DO [address] [place] [address] Consulting Hematology/Oncology 05/16/14 Mj Dos Santos MD [address] [place] [address] [employer] [facility] Analyst Cardiology 03/01/21 04/17/89 Bartender Manager Relationship Specialty Start Date End Date Zeny Lam APRN.INFO SPECIALIST [address] [place], [place] 770141 PCP - General Internal Medicine 01/23/23 Mckinley Jaramillo DO [address] [place] [address] Consulting Hematology/Oncology 05/16/14 Mj Dos Santos MD [address] [place] [address] [employer] [facility] Analyst Cardiology 03/01/21 04/17/89 Bartender Manager Relationship Specialty Start Date End Date Zeny Lam APRN.INFO SPECIALIST [address] [place] [address] PCP - General Internal Medicine 01/23/23 Mckinley Jaramillo DO [address] [place] [address] Consulting Hematology/Oncology 05/16/14 Mj Dos Santos MD [address] [place] [address] Epic [facility] Analyst Cardiology 03/01/21 04/17/89 Bartender Manager Relationship Specialty Start Date End Date Zeny Lam APRN.INFO SPECIALIST [address] [place] [address] PCP - General Internal Medicine 01/23/23 Mckinley Jaramillo DO [address] [place] [address] Consulting Hematology/Oncology 05/16/14 Mj Dos Santos MD [address] [place] [address] Epic [facility] Analyst Cardiology 03/01/21 04/17/89 Bartender Manager Relationship Specialty Start Date End Date Zeny Lam APRN.INFO SPECIALIST [address] [place] [address] PCP - General Internal Medicine 01/23/23 Mckinley Jaramillo DO [address] [place] [address] Consulting Hematology/Oncology 05/16/14 Mj Dos Santos MD [address] [place] [address] Epic Cupid Analyst Cardiology 03/01/21 04/17/89 Bartender Manager Relationship Specialty Start Date End Date Zeny Lam APRN.INFO SPECIALIST [facility] [place] [address] PCP - General Internal Medicine 01/23/23 Mckinley Jaramillo DO [address] [place], [place] 277661 Consulting Hematology/Oncology 05/16/14 Mj Dos Santos MD [address] [place] [address] Epic [facility] Analyst Cardiology 03/01/21 04/17/89 Bartender Manager Relationship Specialty Start Date End Date Zeny Lam APRN.INFO SPECIALIST [address] [place] [address] PCP - General Internal Medicine 01/23/23 Mckinley Jaramillo DO [address] [place] [address] Consulting Hematology/Oncology 05/16/14 Mj Dos Santos MD [address] [place] [address] Epic [facility] Analyst Cardiology 03/01/21 04/17/89 Bartender Manager Relationship Specialty Start Date End Date Zeny Lam APRN.INFO SPECIALIST [address] [place] [address] PCP - General Internal Medicine 01/23/23 Mckinley Jaramillo DO [address] [place], [place] 181631 Consulting Hematology/Oncology 05/16/14 Mj Dos Santos MD [address] [place] [address] Epic [facility]id Analyst Cardiology 03/01/21 04/17/89 Bartender Manager Relationship Specialty Start Date End Date Zeny Lam APRN.INFO SPECIALIST [address] [place] [address] PCP - General Internal Medicine 01/23/23 Mckinley Jaramillo DO [address] [place] [address] Consulting Hematology/Oncology 05/16/14 Mj Dos Santos MD [address] [place] [address] Epic [facility]id Analyst Cardiology 03/01/21 04/17/89 Bartender Manager Relationship Specialty Start Date End Date Zeny Lam APRN.INFO SPECIALIST [facility] [place] [address] PCP - General Internal Medicine 01/23/23 Mckinley Jaramillo DO [address] [place] [address] Consulting Hematology/Oncology 05/16/14 Mj Dos Santos MD [address] [place], [place] [id number] Epic Cupid Analyst Cardiology 03/01/21 04/17/89 Bartender Manager Relationship Specialty Start Date End Date Zeny Lam APRN.INFO SPECIALIST [address] [place] [address] PCP - General Internal Medicine 01/23/23 Mckinley Jaramillo DO [address] [place] [address] Consulting Hematology/Oncology 05/16/14 Mj Dos Santos MD [address] [place] [address] Epic Cupid Analyst Cardiology 03/01/21 04/17/89 Bartender Manager Relationship Specialty Start Date End Date Zeny Lam APRN.INFO SPECIALIST [address] [place] [address] PCP - General Internal Medicine 01/23/23 Mckinley Jaramillo DO [address] [place] [address] Consulting Hematology/Oncology 05/16/14 Mj Dos Santos MD [address] [place], [place] 3132095 Epic Cupid Analyst Cardiology 03/01/21 04/17/89 Bartender Manager Relationship Specialty Start Date End Date Zeny Lam APRN.INFO SPECIALIST [address] [place] [address] PCP - General Internal Medicine 01/23/23 cMkinley Jaramillo DO [address] [place] [address] Consulting Hematology/Oncology 05/16/14 Mj Dos Santos MD [address] [place] [address] Epic Cupid Analyst Cardiology 03/01/21 04/17/89 Bartender Manager Relationship Specialty Start Date End Date Zeny Lam APRN.INFO SPECIALIST [address] [place], [place] 762781 PCP - General Internal Medicine 01/23/23 Mckinley Jaramillo DO [address] [place], [place] 005431 Consulting Hematology/Oncology 05/16/14 Mj Dos Santos MD [address] [place] [address] Epic Cupid Analyst Cardiology 03/01/21 04/17/89 Bartender Manager Relationship Specialty Start Date End Date Zeny Lam VINYL CUTTER.INFO SPECIALIST [address] [place] [address] PCP - General Internal Medicine 01/23/23 Mckinley Jaramillo DO [address] [place] [address] Consulting Hematology/Oncology 05/16/14 Mj Dos Santos MD [address] [place] [address] Epic Cupid Analyst Cardiology 03/01/21 04/17/89 Bartender Manager Relationship Specialty Start Date End Date Zeny Lam APRN.INFO SPECIALIST [address] [place] [address] PCP - General Internal Medicine 01/23/23 Mckinley Jaramillo DO [address] [place] [address] Consulting Hematology/Oncology 05/16/14 Mj Dos Santos MD [address] [place] [address] Epic Cupid Analyst Cardiology 03/01/21 04/17/89 Bartender Manager Relationship Specialty Start Date End Date Zeny Lam APRN.INFO SPECIALIST [facility] [place] [address] PCP - General Internal Medicine 01/23/23 Mckinley Jaramillo DO [address] [place], [place] 547891 Consulting Hematology/Oncology 05/16/14 Mj Dos Santos MD [address] [place] [address] Epic Cupid Analyst Cardiology 03/01/21 04/17/89 Bartender Manager Relationship Specialty Start Date End Date Zeny Lam APRN.INFO SPECIALIST [address] [place] [address] PCP - General Internal Medicine 01/23/23 Mckinley Jaramillo DO [address] [place] [address] Consulting Hematology/Oncology 05/16/14 Mj Dos Santos MD [address] [place], [place] 7356095 Epic Cupid Analyst Cardiology 03/01/21 04/17/89 Bartender Manager Relationship Specialty Start Date End Date Zeny Lam APRN.INFO SPECIALIST [address] [place], [place] 388261 PCP - General Internal Medicine 01/23/23 Mckinley Jaramillo DO [address] [place] [address] Consulting Hematology/Oncology 05/16/14 Mj Dos Santos MD [address] [place] [address] Epic Cupid Analyst Cardiology 03/01/21 04/17/89 Bartender Manager Relationship Specialty Start Date End Date Zeny Lam APRN.INFO SPECIALIST [address] [place] [address] PCP - General Internal Medicine 01/23/23 Mckinley Jaramillo DO [address] [place] [address] Consulting Hematology/Oncology 05/16/14 Mj Dos Santos MD [address] [place], [place] 7838195 Epic Cupid Analyst Cardiology 03/01/21 04/17/89 Bartender Manager Relationship Specialty Start Date End Date Zeny Lam APRN.INFO SPECIALIST [address] [place] [address] PCP - General Internal Medicine 01/23/23 Mckinley Jaramillo DO [address] [place] [address] Consulting Hematology/Oncology 05/16/14 Mj Dos Santos MD [address] [place] [address] Epic Cupid Analyst Cardiology 03/01/21 04/17/89 Bartender Manager Relationship Specialty Start Date End Date Zeny Lam VINYL CUTTER.INFO SPECIALIST [facility] [place], [place] 349891 PCP - General Internal Medicine 01/23/23 Mckinley Jaramillo DO [address] [place], [place] 33671691 Consulting Hematology/Oncology 05/16/14 Mj Dos Santos MD [address] [place] [address] Epic Cupid Analyst Cardiology 03/01/21 04/17/89 Bartender Manager Relationship Specialty Start Date End Date Zeny Lam, VINYL CUTTER.INFO SPECIALIST [address] [place] [address] PCP - General Internal Medicine 01/23/23 Mckinley Jaramillo DO [address] [place] [address] Consulting Hematology/Oncology 05/16/14 Mj Dos Santos MD [address] [place] [address] Epic Cupid Analyst Cardiology 03/01/21 04/17/89 Bartender Manager Relationship Specialty Start Date End Date Zeny Lam APRN.INFO SPECIALIST [address] [place], [place] 359161 PCP - General Internal Medicine 01/23/23 Mckinley Jaramillo DO [address] [place], [place] 691311 Consulting Hematology/Oncology 05/16/14 Mj Dos Santos MD [address] [place] [address] Epic Cupid Analyst Cardiology 03/01/21 04/17/89 Bartender Manager Relationship Specialty Start Date End Date Zeny Lam APRN.INFO SPECIALIST [address] [place] [address] PCP - General Internal Medicine 01/23/23 Mckinley Jaramillo DO [address] [place] [address] Consulting Hematology/Oncology 05/16/14 Mj Dos Santos MD [address] [place] [address] Epic Cupid Analyst Cardiology 03/01/21 04/17/89 Bartender Manager Relationship Specialty Start Date End Date Zeny Lam APRN.INFO SPECIALIST [address] [place] [address] PCP - General Internal Medicine 01/23/23 Mckinley Jaramillo DO [address] [place] [address] Consulting Hematology/Oncology 05/16/14 Mj Dos Santos MD [address] [place], [place] 7809795 Epic Cupid Analyst Cardiology 03/01/21 04/17/89 Bartender Manager Relationship Specialty Start Date End Date Zeny Lam APRN.INFO SPECIALIST [address] [place], [place] 746621 PCP - General Internal Medicine 01/23/23 Mckinley Jaramillo DO [address] [place] [address] Consulting Hematology/Oncology 05/16/14 Mj Dos Santos MD [address] [place], [place] 0784195 Epic Cupid Analyst Cardiology 03/01/21 04/17/89 Bartender Manager Relationship Specialty Start Date End Date Zeny Lam APRN.INFO SPECIALIST [address] [place] [address] PCP - General Internal Medicine 01/23/23 Mckinley Jaramillo DO [address] [place], [place] 645461 Consulting Hematology/Oncology 05/16/14 Mj Dos Santos MD [address] [place], [place] 5825295 Epic Cupid Analyst Cardiology 03/01/21 04/17/89 Bartender Manager Relationship Specialty Start Date End Date Zeny Lam APRN.INFO SPECIALIST [address] [place], [place] 780831 PCP - General Internal Medicine 01/23/23 Mckinley Jaramillo DO [address] [place] [address] Consulting Hematology/Oncology 05/16/14 Mj Dos Santos MD [address] [place], [place] 4989295 Epic Cupid Analyst Cardiology 03/01/21 04/17/89 Bartender Manager Relationship Specialty Start Date End Date Zeny Lam APRN.INFO SPECIALIST [facility] [place], [place] 476281 PCP - General Internal Medicine 01/23/23 Mckinley Jaramillo DO [address] [place], [place] 219141 Consulting Hematology/Oncology 05/16/14 Mj Dos Santos MD [address] [place] [address] Epic Cupid Analyst Cardiology 03/01/21 04/17/89 Bartender Manager Relationship Specialty Start Date End Date Zeny Lam VINYL CUTTER.INFO SPECIALIST [address] [place], [place] 199651 PCP - General Internal Medicine 01/23/23 Mckinley Jaramillo DO [address] [place] [address] Consulting Hematology/Oncology 05/16/14 Mj Dos Santos MD [address] [place], [place] 0552095 Epic Cupid Analyst Cardiology 03/01/21 04/17/89 Bartender Manager Relationship Specialty Start Date End Date Zeny Lam APRN.INFO SPECIALIST [address] [place], [place] 265741 PCP - General Internal Medicine 01/23/23 Mckinley Jaramillo DO [address] [place], [place] 28398691 Consulting Hematology/Oncology 05/16/14 Mj Dos Santos MD [address] [place] [address] Epic Cupid Analyst Cardiology 03/01/21 04/17/89 Bartender Manager Relationship Specialty Start Date End Date Zeny Lam APRN.INFO SPECIALIST [address] [place] [address] PCP - General Internal Medicine 01/23/23 Mckinley Jaramillo DO [address] [place], [place] 945431 Consulting Hematology/Oncology 05/16/14 Mj Dos Santos MD [address] [place] [address] Epic Cupid Analyst Cardiology 03/01/21 04/17/89 Bartender Manager Relationship Specialty Start Date End Date Zeny Lam APRN.INFO SPECIALIST [address] [place], [place] 485151 PCP - General Internal Medicine 01/23/23 Mckinley Jaramillo DO [address] [place], [place] 266291 Consulting Hematology/Oncology 05/16/14 Mj Dos Santos MD [address] [place], [place] 6008595 Epic Cupid Analyst Cardiology 03/01/21 04/17/89 Bartender Manager Relationship Specialty Start Date End Date Zeny Lam APRN.INFO SPECIALIST [address] [place], [place] 606151 PCP - General Internal Medicine 01/23/23 Mckinley Jaramillo DO [address] [place], [place] 838431 Consulting Hematology/Oncology 05/16/14 Mj Dos Santos MD [address] [place], [place] 8188695 Epic Cupid Analyst Cardiology 03/01/21 04/17/89 Bartender Manager Relationship Specialty Start Date End Date Zeny Lam VINYL CUTTER.INFO SPECIALIST [address] [place] [address] PCP - General Internal Medicine 01/23/23 Mckinley Jaramillo DO [address] [place], [place] 975111 Consulting Hematology/Oncology 05/16/14 Mj Dos Santos MD [address] [place], [place] 0613095 Epic Cupid Analyst Cardiology 03/01/21 04/17/89 Bartender Manager Relationship Specialty Start Date End Date Zeny Lam APRN.INFO SPECIALIST [address] [place], [place] 787301 PCP - General Internal Medicine 01/23/23 Mckinley Jaramillo DO [address] [place] [address] Consulting Hematology/Oncology 05/16/14 Mj Dos Santos MD [address] [place], [place] 1242295 Epic Cupid Analyst Cardiology 03/01/21 04/17/89 Bartender Manager Relationship Specialty Start Date End Date Zeny Lam APRN.INFO SPECIALIST [facility] [place] [address] PCP - General Internal Medicine 01/23/23 Mckinlye Jaramillo DO [address] [place], [place] 786121 Consulting Hematology/Oncology 05/16/14 Mj Dos Santos MD [address] [place], [place] 5205095 Epic Cupid Analyst Cardiology 03/01/21 04/17/89 Bartender Manager Relationship Specialty Start Date End Date Franc Hills MD [address] [place], [place] 723821 PCP - General Internal Medicine 11/12/22 01/12/23 Zeny Lam APRN.INFO SPECIALIST [address] [place], [place] 993241 PCP - General Internal Medicine 01/13/23 01/13/23 Franc Hills MD [address] [place], [place] 705771 PCP - General Internal Medicine 01/14/23 01/22/23 Zeny Lam APRN.INFO SPECIALIST [address] [place], [place] 963101 PCP - General Internal Medicine 01/23/23 Mckinley Jaramillo DO [address] [place], [place] 934801 Consulting Hematology/Oncology 05/16/14 Mj Dos Santos MD [address] [place], [place] 2955695 Epic Cupid Analyst Cardiology 03/01/21 04/17/89 Bartender Manager Relationship Specialty Start Date End Date Franc Hills MD [address] [place], [place] 335831 PCP - General 05/30/09 02/02/22 Mckinley Jaramillo DO [address] [place], [place] 602471 Consulting Hematology/Oncology 05/16/14 Bartender Manager Relationship Specialty Start Date End Date Zeny Lam APRN.INFO SPECIALIST [address] [place], [place] 663311 PCP - General Internal Medicine 01/23/23 Mckinley Jaramillo DO [address] [facility] [place] [place] [address] Consulting Hematology/Oncology 05/16/14 Mj Dos Santos MD [address] [place], [place] 6913995 Epic Cupid Analyst Cardiology 03/01/21 04/17/89 Bartender Manager Relationship Specialty Start Date End Date Zeny Lam APRN.INFO SPECIALIST [address] [place], [place] 678731 PCP - General Internal Medicine 01/23/23 Mckinley Jaramillo DO [address] [place], [place] 667571 Consulting Hematology/Oncology 05/16/14 Mj Dos Santos MD [address] [place] [address] Epic Cupid Analyst Cardiology 03/01/21 04/17/89 Bartender Manager Relationship Specialty Start Date End Date Zeny Lam APRN.INFO SPECIALIST [facility] [place], [place] 281911 PCP - General Internal Medicine 01/23/23 Mckinley Jaramillo DO [address] [place], [place] 475311 Consulting Hematology/Oncology 05/16/14 Mj Dos Santos MD [address] [place], [place] 4513495 Epic Cupid Analyst Cardiology 03/01/21 04/17/89 Bartender Manager Relationship Specialty Start Date End Date Zeny Lam APRN.INFO SPECIALIST [address] [place], [place] 759691 PCP - General Internal Medicine 01/23/23 Mckinley Jaramillo DO [address] [place] [address] Consulting Hematology/Oncology 05/16/14 Mj Dos Santos MD [address] [place] [address] Epic Cupid Analyst Cardiology 03/01/21 04/17/89 Bartender Manager Relationship Specialty Start Date End Date Zeny Lam APRN.INFO SPECIALIST [address] [place] [address] PCP - General Internal Medicine 01/23/23 Mckinley Jaramillo DO [address] [place] [address] Consulting Hematology/Oncology 05/16/14 Mj Dos Santos MD [address] [place] [address] Epic Cupid Analyst Cardiology 03/01/21 04/17/89 Bartender Manager Relationship Specialty Start Date End Date Zeny Lam APRN.INFO SPECIALIST [address] [place] [address] PCP - General Internal Medicine 01/23/23 Mckinley Jaramillo DO [address] [place] [address] Consulting Hematology/Oncology 05/16/14 Mj Dos Santos MD [address] [place] [address] Epic Cupid Analyst Cardiology 03/01/21 04/17/89 Bartender Manager Relationship Specialty Start Date End Date Zeny Lam APRN.INFO SPECIALIST [address] [place] [address] PCP - General Internal Medicine 01/23/23 Mckinley Jaramillo DO [address] [place] [address] Consulting Hematology/Oncology 05/16/14 Mj Dos Santos MD [address] [place] [address] Epic Cupid Analyst Cardiology 03/01/21 04/17/89 Bartender Manager Relationship Specialty Start Date End Date Zeny Lam APRN.INFO SPECIALIST [address] [place] [address] PCP - General Internal Medicine 01/23/23 Mckinley Jaramillo DO [address] [place], [place] 951634 [phone] Consulting Hematology/Oncology 05/16/14 Mj Dos Santos MD [address] [place] [address] Epic Cupid Analyst Cardiology 03/01/21 04/17/89 Bartender Manager Relationship Specialty Start Date End Date Zeny Lam APRN.INFO SPECIALIST [address] [place] [address] PCP - General Internal Medicine 01/23/23 Mckinley Jaramillo DO [address] [place] [address] Consulting Hematology/Oncology 05/16/14 Mj Dos Santos MD [address] [place], [place] 8862095 Epic Cupid Analyst Cardiology 03/01/21 04/17/89 Bartender Manager Relationship Specialty Start Date End Date Zeny Lam APRN.INFO SPECIALIST [address] [place], [place] 895161 PCP - General Internal Medicine 01/23/23 Mckinley Jaramillo DO [address] [place], [place] 770111 Consulting Hematology/Oncology 05/16/14 Mj Dos Santos MD [address] [place] [address] Epic Cupid Analyst Cardiology 03/01/21 04/17/89 Bartender Manager Relationship Specialty Start Date End Date Zeny Lam APRN.INFO SPECIALIST [address] [place] [address] PCP - General Internal Medicine 01/23/23 Mckinley Jaramillo DO [address] [place] [address] Consulting Hematology/Oncology 05/16/14 Mj Dos Santos MD [address] [place], [place] 5798595 Epic Cupid Analyst Cardiology 03/01/21 04/17/89 Bartender Manager Relationship Specialty Start Date End Date Zeny Lam APRN.INFO SPECIALIST [address] [place], [place] 955311 PCP - General Internal Medicine 01/23/23 Mckinley Jaramillo DO [address] [place] [address] Consulting Hematology/Oncology 05/16/14 Mj Dos Santos MD [address] [place], [place] 8676695 Epic Cupid Analyst Cardiology 03/01/21 04/17/89 Bartender Manager Relationship Specialty Start Date End Date Zeny Lam APRN.INFO SPECIALIST [address] [place] [address] PCP - General Internal Medicine 01/23/23 Mckinley Jaramillo DO [address] [place] [address] Consulting Hematology/Oncology 05/16/14 Mj Dos Santos MD [address] [place] [address] Epic Cupid Analyst Cardiology 03/01/21 04/17/89 Bartender Manager Relationship Specialty Start Date End Date Zeny Lam APRN.INFO SPECIALIST [address] [place] [address] PCP - General Internal Medicine 01/23/23 Mckinley Jaramillo DO [address] [place] [address] Consulting Hematology/Oncology 05/16/14 Mj Dos Santos MD [address] [place], [place] 8603895 Epic Cupid Analyst Cardiology 03/01/21 04/17/89 Bartender Manager Relationship Specialty Start Date End Date Zeny Lam APRN.INFO SPECIALIST [address] [place] [address] PCP - General Internal Medicine 01/23/23 Mckinley Jaramillo DO [address] [place] [address] Consulting Hematology/Oncology 05/16/14 Mj Dos Santos MD [address] [place] [address] Epic Cupid Analyst Cardiology 03/01/21 04/17/89 Bartender Manager Relationship Specialty Start Date End Date Zeny Lam APRN.INFO SPECIALIST [address] [place] [address] PCP - General Internal Medicine 01/23/23 Mckinley Jaramillo DO [address] [place], [place] 675451 Consulting Hematology/Oncology 05/16/14 Mj Dos Santos MD [address] [place] [address] Epic Cupid Analyst Cardiology 03/01/21 04/17/89 Bartender Manager Relationship Specialty Start Date End Date Zeny Lam APRN.INFO SPECIALIST [address] [place] [address] PCP - General Internal Medicine 01/23/23 Mckinley Jaramillo DO [address] [place] [address] Consulting Hematology/Oncology 05/16/14 Mj Dos Santos MD [address] [place], [place] 9554895 Epic Cupid Analyst Cardiology 03/01/21 04/17/89 Bartender Manager Relationship Specialty Start Date End Date Zeny Lam APRN.INFO SPECIALIST [address] [place], [place] 379131 PCP - General Internal Medicine 01/23/23 Mckinley Jaramillo DO [address] [place], [place] 91846691 Consulting Hematology/Oncology 05/16/14 Mj Dos Santos MD [address] [place] [address] Epic Cupid Analyst Cardiology 03/01/21 04/17/89 Bartender Manager Relationship Specialty Start Date End Date Zeny Lam APRN.INFO SPECIALIST [address] [place] [address] PCP - General Internal Medicine 01/23/23 Mckinley Jaramillo DO [address] [place] [address] Consulting Hematology/Oncology 05/16/14 Mj Dos Santos MD [address] [place], [place] 8365395 Epic Cupid Analyst Cardiology 03/01/21 04/17/89 Bartender Manager Relationship Specialty Start Date End Date Zeny Lam APRN.INFO SPECIALIST [address] [place], [place] 605881 PCP - General Internal Medicine 01/23/23 Mckinley Jaramillo DO [address] [place] [address] Consulting Hematology/Oncology 05/16/14 Mj Dos Santos MD [address] [place] [address] Epic Cupid Analyst Cardiology 03/01/21 04/17/89 Bartender Manager Relationship Specialty Start Date End Date Zeny Lam APRN.INFO SPECIALIST [address] [place] [id number] PCP - General Internal Medicine 01/23/23 Mckinley Jaramillo DO [address] [place] [address] Consulting Hematology/Oncology 05/16/14 Mj Dos Santos MD [address] [place] [address] Epic Cupid Analyst Cardiology 03/01/21 04/17/89 Bartender Manager Relationship Specialty Start Date End Date Zeny Lam APRN.INFO SPECIALIST [address] [place] [address] PCP - General Internal Medicine 01/23/23 Mckinley Jaramillo DO [address] [place] [address] Consulting Hematology/Oncology 05/16/14 Mj Dos Santos MD [address] [place] [address] Epic Cupid Analyst Cardiology 03/01/21 04/17/89 Bartender Manager Relationship Specialty Start Date End Date Zeny Lam APRN.INFO SPECIALIST [address] [place], [place] [address] [phone] PCP - General Internal Medicine 01/23/23 Mckinley Jaramillo DO [address] [place] [address] Consulting Hematology/Oncology 05/16/14 Mj Dos Santos MD [address] [place], [place] [id number] Epic Cupid Analyst Cardiology 03/01/21 04/17/89 Bartender Manager Relationship Specialty Start Date End Date Zeny Lam APRN.INFO SPECIALIST [address] [place] [address] PCP - General Internal Medicine 01/23/23 Mckinley Jaramillo DO [address], [place] [address] [phone] Consulting Hematology/Oncology 05/16/14 Mj Dos Santos MD [address] [place] [address] Epic Cupid Analyst Cardiology 03/01/21 04/17/89 Bartender Manager Relationship Specialty Start Date End Date Zeny Lam APRN.INFO SPECIALIST [address] [place] [address] PCP - General Internal Medicine 01/23/23 Mckinley Jaramillo DO [address] [place] [address] Consulting Hematology/Oncology 05/16/14 Mj Dos Santos MD [address] [place], [place] [id number] Epic Cupid Analyst Cardiology 03/01/21 04/17/89 Bartender Manager Relationship Specialty Start Date End Date Zeny Lam APRN.INFO SPECIALIST [address] [place], [place] [address] [phone] PCP - General Internal Medicine 01/23/23 Mckinley Jaramillo DO [address], [place] [address] [phone] Consulting Hematology/Oncology 05/16/14 Mj Dos Santos MD [address] [place] [address] Epic Cupid Analyst Cardiology 03/01/21 04/17/89 Bartender Manager Relationship Specialty Start Date End Date Zeny Lam APRN.INFO SPECIALIST [address] [place] [address] PCP - General Internal Medicine 01/23/23 Mckinley Jaramillo DO [address] [place] [address] Consulting Hematology/Oncology 05/16/14 Mj Dos Santos MD [address] [place] [address] Epic Cupid Analyst Cardiology 03/01/21 04/17/89 Bartender Manager Relationship Specialty Start Date End Date Zeny Lam APRN.INFO SPECIALIST [address] [place] [address] PCP - General Internal Medicine 01/23/23 Mckinley Jaramillo DO [address] [place] [address] Consulting Hematology/Oncology 05/16/14 Mj Dos Santos MD [address] [place] [address] Epic Cupid Analyst Cardiology 03/01/21 04/17/89 Bartender Manager Relationship Specialty Start Date End Date Zeny Lam APRN.INFO SPECIALIST [address] [place] [address] PCP - General Internal Medicine 01/23/23 Mckinley Jaramillo DO [address] [place] [address] Consulting Hematology/Oncology 05/16/14 Mj Dos Santos MD [address] [place] [address] Epic Cupid Analyst Cardiology 03/01/21 04/17/89 Bartender Manager Relationship Specialty Start Date End Date Zeny Lam APRN.INFO SPECIALIST [address] [place] [address] PCP - General Internal Medicine 01/23/23 Mckinley Jaramillo DO [address] [place] [address] Consulting Hematology/Oncology 05/16/14 Mj Dos Santos MD [address] [place], [place] [phone] Epic Cupid Analyst Cardiology 03/01/21 04/17/89 Bartender Manager Relationship Specialty Start Date End Date Zeny Lam APRN.INFO SPECIALIST [address] [place] [address] PCP - General Internal Medicine 01/23/23 Mckinley Jaramillo DO [address] [place] [address] Consulting Hematology/Oncology 05/16/14 Mj Dos Santos MD [address] [place], [place] [id number] Epic Cupid Analyst Cardiology 03/01/21 04/17/89 Bartender Manager Relationship Specialty Start Date End Date Zeny Lam APRN.INFO SPECIALIST [address] [place] [address] PCP - General Internal Medicine 01/23/23 Mckinley Jaramillo DO [address] [place] [address] Consulting Hematology/Oncology 05/16/14 Mj Dos Santos MD [address] [place] [address] Epic Cupid Analyst Cardiology 03/01/21 04/17/89 Bartender Manager Relationship Specialty Start Date End Date Zeny Lam APRN.INFO SPECIALIST [address] [place] [address] PCP - General Internal Medicine 01/23/23 Mckinley Jaramillo DO [address] [place] [address] Consulting Hematology/Oncology 05/16/14 Mj Dos Santos MD [address] [place] [address] Epic Cupid Analyst Cardiology 03/01/21 04/17/89 Bartender Manager Relationship Specialty Start Date End Date Zeny Lam APRN.INFO SPECIALIST [address] [place], [place] [address] PCP - General Internal Medicine 01/23/23 Mckinley Jaramillo DO [address] [place], [place] [id number] Consulting Hematology/Oncology 05/16/14 Mj Dos Santos MD [address] [place] [address] Epic Cupid Analyst Cardiology 03/01/21 04/17/89 Team Status: Active Member Role/Relationship Status Dates Teri Gruber NP, BREAKDOWN MILL OPERATOR-C Primary Care Provider Active Team Status: Inactive Member Role/Relationship Status Dates Dr. Danielle Han DO Emergency Provider Active Start: November 19, 2024 End: November 20, 2024 Teri Gruber NP, BREAKDOWN MILL OPERATOR-C Primary Care Provider Active Start: November 19, 2024 End: November 20, 2024 Goals (unrecognized section and content) Goals may be documented in a n alternate sectionGoals may be documented in an alternate section (unrecognized sect ion and content) No Status Records FoundNo Status Records FoundNo Status Records FoundNo Status Records Found INFORMATION SOURCE (unrecogn ized section and content) DATE CREATED AUTHOR 11/13/2023 [facility] DATE CREATED AUTHOR AUTHOR'S ORGANIZ ATION 02/03/2024 [facility] DATE CREATED AUTHOR AUTHOR'S ORGANIZ ATION 08/20/2024 [facility] DATE CREATED AUTHOR AUTHOR'S ORGANIZ ATION 11/17/2024 [facility] FOR RECORDS PERTAINING TO PATIENTS WHO [...] BE BASED ON THE PRIMARY CLINICAL RECORDS. [facility] [employer] [facility]. provides no warranty or guarantee of the accuracy or completeness of information in this document.
--- OUTSIDE RECORDS SUMMARY | 2024-11-20 09:54 | XMS RPT_ITS | CCD ---
Author Organization [facility] CliniSyin Care Team Providers Care Instrument Assembler Name Role Phone Reinier LINCOLN, Franc Alegre [...] Alegre Primary Care Provider [phone] Genaro DIRECTOR OF INCOME TAX.Zeny GARZA Primary Care Provider [phone] Genaro DIRECTOR OF INCOME TAX.Zeny GARZA Primary Care Provider [phone] Reinier LINCOLN, Franc Alegre Primary Care Provider [phone] Genaro DIRECTOR OF INCOME TAX.KAYLA, Zeny Primary Care Provider [phone] Reinier LINCOLN, Franc Alegre Primary Care Provider Reinier LINCOLN, Franc Alegre Primary Care Provider Lisandro Mora Attending Unavailable Franc [place] Primary Care Unavailable Lisandro Mora Attending Unavailable Genaro BOOK AGENT, Zeny Primary Care Unavailable Genaro DIRECTOR OF INCOME TAX.KAYLA, Zeny Knowles Primary Care Provider Genaro DIRECTOR OF INCOME TAX.COMPUTER TECHNOLOGY TRAINER, Zeny Primary Care Provider [phone] WALT YANG Attending Unavailable GENARO, ZENY Referring [...] Unavailable Dr. Danielle Han DO Emergency Provider [phone] [facility] BOOK AGENT-C, [facility] Primary Care Provider Allergies Allergy Classification Reported Allergen(s) Allergy Type Date of Onset Reaction(s) Facility Anti-Epileptic Agents (1 source) gabapentin Drug Allergy 3 Intolerance [facility] Cephalosporins (antibiotic) (1 source) Cephalexin Drug Allergy 5 Rash [facility] cyclobenzaprine (1 source) cyclobenzaprine Drug Allergy 3 Other: See Comments [facility] Work Phone: (20 sources) Cephalexin; Translations: [CEPHALEXIN] Drug Allergy 5 Rash [facility] (20 sources) Warfarin Drug Allergy 0 Rash [facility] (20 sources) cyclobenzaprine; Translations: [CYCLOBENZAPRINE] Drug Allergy 3 Other: See Comments [facility] Work Phone: (20 sources) gabapentin; Translations: [GABAPENTIN] Drug Allergy 3 Intolerance [facility] Work Phone: Comment on above: dizziness (1 source) Cephalexin Drug Allergy 4 [facility] Repository (1 source) cyclobenzaprine Drug Allergy 4 [facility] (1 source) gabapentin Drug Allergy 4 [facility] Medications Current Medications Medication Drug [...] 06/10/2023 Discontinued take 2000 [IU] by mo [facility] once daily ascorbic acid (VITAMIN C ORAL) Take 2,000 Units by mouth once daily. 0 Active Comment on above: [facility] Take 2,000 Units by mouth [...] Comment on above: Take 1 tablet by [facility] once daily. Take by mouth. [...] 2 tablets by mouth once daily ACID OIL TREATER 20 mg tablet Take 2 tablets by [...] Comment on above: Take 1 capsule by [facility] twice daily. Take 1 tablet by kandi [...] Start: 12-16-2018 take 4 tablets by mo [facility] at bedtime Rosuvastatin (Crestor) 10 mg tablet Active 40 mg PO AT BEDTIME December 16, 2018 4:22pm Start: 12-16-2018 take 2 tablets by mo [facility] at bedtime Rosuvastatin (Crestor) 10 mg tablet Active 20 MG PO AT BEDTIME December 16, 2018 3:22pm Start: 11-24-2018 End: 12-16-2018 take 1 tablet by mouth once daily Rosuvastatin 10 MG tablet Discontinued 10 mg PO DAILY November 24, 2018 12:00am December 16, 2018 4:32pm Comment on above: Take 1 tablet by [facility] once daily. Take 2 tablets by mo [facility] once daily. tropicamide 10 mg/ml ophthalmic solution [...] 1 tablet by mouth once daily Ca-D3-Mag Vb-Wyel-Bim-Vic-Bor 1 EACH tablet,chewable Discontinued 1 NMA PO DAILY January 12, 2019 12:00am May 14, 2023 1:11pm Start: 01-12-2019 Ca-D3-Mag Ox-Z nzc-Tac-Vlvl-Bor Active 1 EACH PO DAILY January 11, [...] eye(s) four times daily as needed Peg 257-Mhpiseqivlyc-Rbwygoyt 15 ML drops Discontinued 2 NMA OP [...] once daily. Take 2 tablets by mo [facility] once daily. hydrOXYzine hydrochloride 25 mg oral [...] on above: Take 1 capsule by mo [facility] once daily. melatonin 10 mg oral tablet [...] PRIOR TO A MEAL polyethylene glycol 3350 74706 mg powder for oral solution (20 sources) [...] and take as directed. polyethylene glycol 3350 783744 mg / potassium chloride 2970 mg / sodium bicarbonate 6740 mg / sodium chloride 5860 mg / sodium sulfate 88088 mg powder for oral solution (1 source) [...] 1 capsule by mouth twice daily [facility] 450 mg capsule Discontinued 450 mg PO TWICE A DAY December 16, 2018 4:25pm November 20, 2024 1:29am Start: 12-16-2018 take 450 mg by mouth twice daily [facility] Active 450 MG PO TWICE A DAY December 16, 2018 3:25pm Start: 12-16-2018 take 450 mg by mouth twice daily [facility] Active 450 MG PO TWICE A DAY December 16, 2018 4:25pm Start: 05-08-2014 End: 12-16-2018 take 1 capsule by mouth twice daily [facility] 450 MG capsule Discontinued 450 mg PO TWICE A DAY May 08, 2014 1:00am December 16, 2018 4:32pm Start: 05-08-2014 End: 12-16-2018 take 450 mg by mouth twice daily [facility] Discontinued 450 MG PO TWICE A DAY May 08, 2014 12:00am December 16, 2018 3:32pm Start: 05-08-2014 End: 12-16-2018 take 450 mg by mouth twice daily [facility] Discontinued 450 MG PO TWICE A DAY [...] sources) Long-term current use of anticoagulant; Translations: [penitentiary (current) use of anticoagulants] Onset: 09-15-2018 Episodic [...] 07-28-2024 05-19-2024 Episodic Other aftercare (1 source) penitentiary (current) use of anticoagulants; Translations: [penitentiary (current) use of anticoagulants] Onset: 10-26-2019 Episodic [...] Auto (Unsp spec) [#/Vol] 1.61 10*3/uL 0.83-4.51 [facility] Absolute neutrophil countOrd ered By: Danielle Han on 11-20-2024 Neutrophils (Bld) [#/Vol] 11.1 10*3/uL High 2.0-7.7 [facility] Anion gap in Serum or Plasma Ordered By: Danielle Han on 11-20-2024 Anion gap [Moles/Vol] 15 mmol/L 5-15 [facility] Automated lymphocyte count a s percentage of total leukocytesOrdered By: Danielle Han on 11-20-2024 Lymphocytes/100 WBC Auto (Unsp spec) 12.2 % Low 19-41 [facility] BUN/creatinine ratioOrdered By: Danielle Han on 11-20-2024 Urea nitrogen/Creatinine [Mass ratio] 17.4 mg/mg 10-20 [facility] Basophil percentageOrdered B y: Danielle Han on 11-20-2024 Basophils/100 WBC (Bld) 0.4 % 0-1 [facility] Carbon dioxide, total [Moles /volume] in Central venous bloodOrdered By: Danielle Han on 11-20-2024 CO2 [Moles/Vol] 15.4 mmol/L Low 21.0-32.0 [facility] Chloride assayOrdered By: Leroy Han on 11-20-2024 Chloride [Moles/Vol] 110 mmol/L High 98-108 [facility] Eosinophil percentageOrdered By: Danielle Han on 11-20-2024 Eosinophils/100 WBC (Bld) 0.1 % 0-5 [facility] Erythrocyte distribution wid th ratioOrdered By: Danielle Han on 11-20-2024 Erythrocyte distribution width (RBC) [Ratio] 14.2 % 11.6-14.6 [facility] Erythrocyte distribution wid th standard deviationOrdered By: Danielle Han on 11-20-2024 Erythrocyte distribution width (RBC) [Ratio] 48.7 fl High 35.1-43.9 [facility] Glomerular filtration rate ( GFR) estimation/1.73 sq m using serum, plasma, or whole bOrdered By: Danielle Han on 11-20-2024 GFR/1.73 sq M.predicted among non-blacks MDRD (S/P/Bld) [Vol rate/Area] 88 mL/min/{1.73_m2} >60 [facility] Comment on above: mL/min/1.73m2 CKD-EP I Creatinine Equation (2020) Hematocrit Auto (Bld) [Volum e fraction]Ordered By: Danielle Han on 11-20-2024 Hematocrit (Bld) [Volume fraction] 50.1 % 40-54 [facility] Hemoglobin measurementOrdere d By: Danielle Han on 11-20-2024 Hemoglobin (Bld) [Mass/Vol] 16.8 g/dL High 13.0-16.5 [facility] Immature granulocytes/100 WB C Auto (Bld)Ordered By: Danielle Han on 11-20-2024 Immature granulocytes/100 WBC (Bld) 0.300 % 0.0-0.9 [facility] Comment on above: IG% - Immature Granu locytes (promyelocytes, myelocytes and metamyelocytes) > 1% indicates that a LEFT SHIFT is Present. International normalized rat io (INR) calculationOrdered By: Danielle Han on 11-20-2024 INR Coag (Bld) [Relative time] 2.0 {INR} [facility] MCV (mean corpuscular volume ) determinationOrdered By: Danielle Han on 11-20-2024 MCV (RBC) [Entitic vol] 94.2 fL High 80-94 [facility] Mean corpuscular hemoglobin (MCH) determinationOrdered By: Danielle Han on 11-20-2024 MCH (RBC) [Entitic mass] 31.6 pg 27.0-32.0 [facility] Mean corpuscular hemoglobin concentration (MCHC) determinationOrdered By: Danielle Han on 11-20-2024 MCHC (RBC) [Mass/Vol] 33.5 g/dL 32-36 [facility] Mean platelet volume determi nationOrdered By: Danielle Han on 11-20-2024 Platelet mean volume (Bld) [Entitic vol] 10.4 fL 6.2-12.0 [facility] Monocyte percentageOrdered B y: Danielle Han on 11-20-2024 Monocytes/100 WBC (Bld) 3.3 % 0-10 [facility] Neutrophil percentageOrdered By: Danielle Han on 11-20-2024 Neutrophils/100 WBC (Bld) 83.7 % High 47-70 [facility] Nucleated red blood cell per centageOrdered By: Danielle Han on 11-20-2024 Nucleated RBC/100 WBC (Bld) [Ratio] 0 % 0-5 [facility] Platelet countOrdered By: Leroy Han on 11-20-2024 Platelets (Bld) [#/Vol] 155 10*3/uL 150-450 [facility] Potassium measurement (mass/ volume)Ordered By: Danielle Han on 11-20-2024 Potassium (Unsp spec) [Mass/Vol] 4.6 mmol/L 3.3-5.1 [facility] Comment on above: Hemolysis present, R esults could be affected. Prothrombin timeOrdered By: Danielle Han on 11-20-2024 PT Coag (PPP) [Time] 22.7 s High 11.7-14.9 [facility] RBC Auto (Bld) [#/Vol]Ordere d By: Danielle Han on 11-20-2024 RBC (Bld) [#/Vol] 5.32 10*6/uL 4.6-6.2 [facility] Serum creatinine measurement (mass/volume)Ordered By: Danielle Han on 11-20-2024 Creatinine [Mass/Vol] 0.83 mg/dL 0.70-1.20 [facility] Serum glucose measurement (m ass/volume)Ordered By: Danielle Han on 11-20-2024 Glucose [Mass/Vol] 104 mg/dL High 70-99 [facility] Serum or plasma calcium wilmar urement (mass/volume)Ordered By: Danielle Han on 11-20-2024 Calcium [Mass/Vol] 9.1 mg/dL 7.6-11.0 [facility] Serum or plasma urea nitroge n measurement (mass/volume)Ordered By: Danielle Han on 11-20-2024 Urea nitrogen [Mass/Vol] 15 mg/dL 4-19 [facility] Sodium levelOrdered By: Lacy Han on 11-20-2024 Sodium [Moles/Vol] 140 mmol/L 133-145 [facility] White blood cell (WBC) count Ordered By: Danielle Han on 11-20-2024 WBC (Bld) [#/Vol] 13.2 10*3/uL High 4.4-11.0 [facility] Eosinophils Auto (Bld) [#/Vo l]on 10-20-2024 Eosinophils (Bld) [#/Vol] 0.16 10*3/uL [facility] Interpretation and review of laboratory results Normal [facility] OCT MACULA CIRRUS OU (BOTH E YES)on 08-11-2024 [facility] Radiology Study observation (narrative) [facility] CNOVon 08-09-2024 CNOV Office Visit (WELLME ) ALEX BROOKS ([id number]) 1945 M [facility] Date Time Provider Department 08/09/24 2:00 [...] reducing alcohol intake. He was living in [facility] since he was born and moved to [place] for job-related which he regret as business environment and living was not the same. About 10 year ago, he moved to [place] and that was when he started experiencing exacerbation of all the condition. 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 Provider Name: JoseJ Chase 25 Total minut (more content not included)... Normal [facility] NITRIC OXIDE, EXHALEDon 05-0 Mariana Barbosa, DORETHA [...] August 04, 2024 TIME: 12:34 PM [facility] CNOVon 07-26-2024 CNOV Office Visit (ARUNA ) ALEX BROOKS ([id number]) 1945 M [facility] Date Time Provider Department 07/26/24 2:30 [...] reducing alcohol intake. He was living in [facility] since he was born and moved to [place] for job-related which he regret as business environment and living was not the same. About 10 year ago, he moved to [place] and that was when he started experiencing exacerbation of all the condition. 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 [facility] Heart Perfusion W stress and W radionuclide Nataliia 07-18-2024 * * *Final Report* * * DATE OF EXAM: Jul 18 2024 9:55AM [address] CARDIAC PERF STRESS/PHARM / PROCEDURE REASON: Shortness of breath * * * * Physician Interpretation * * * * Stress Proj Engineer Report: [facility] Date [...] 07/18/2024 7:00:09 AM Ordering physician: TERI GRUBER consumer education specialist: Tawana Owusu RN Interpreting physician: Izabella [...] 144/70 mmHg. [place] [id number]. Medications: Last Used NIFEDIPINE 2 Days Resting ECG: Normal Sinus Rhythm and Complete LBBB Symptoms at rest: No symptoms Pharamcologic Protocol: Regadenoson Stress Exercise Table: +-----+---+---+---+ Stage HR SYS EZEKIEL +-----+---+---+---+ 1 83 +-----+---+---+---+ 2 (more content not included)... DIVISION OF RADIOLOGY Provider, [facility] - 07/18/2024 * * *Final Report* * * DATE OF EXAM: Jul 18 2024 9:55AM [facility] 0006 - [place] CARDIAC PERF STRESS/PHARM / PROCEDURE REASON: Shortness of breath * * * * Physician Interpretation * * * * Stress Proj Engineer Report: [facility] Date [...] 07/18/2024 7:00:09 AM Ordering physician: TERI GRUBER consumer education specialist: Tawana Owusu RN Interpreting physician: Izabella [...] 144/70 mmHg. [place] double product [place] [id number]. Medications: Last Used NIFEDIPINE 2 Days Resting [...] +------+-------- (more content not included)... [facility] Radiology Study observation (narrative) Brooke rojas [facility] Heart Perfusion W stress and W radionuclide IVOrdered By: Ccf Provider on 07-18-2024 [facility] PT panel Coag (PPP)Ordered B y: Cheyenne Obrien on 03-24-2024 INR Coag (PPP) [Relative time] 2.2 {INR} High 0.9 - 1.3 [facility] Comment on above: Vitamin K Antagonist (VKA) Therapeutic Range: INR 2 to 3 (Target INR of 2.5) Note: For patients treated with VKA drugs, such as warfarin, the [place] [employer] 2012 Guideline recommends [...] Chest 2012, 141:7S-47S Lin RA, et al. [facility] 2017, 70: 252-289 Interpretation and review of laboratory results Abnormal [facility] PT Coag (PPP) [Time] 21.5 s High [facility] PT panel Coag (PPP)on 2023 INR Coag (Bld) [Relative time] 2.5 (ext) 2.0 - 3.[address] [facility] [address] Head WO contraston 2023 IMPRESSION: No acute intracranial abnormality or significant change from 03/07/2019 Continuum Of Care Manager: BIRD Transcribe Date/Time: Feb 29 2024 12:38P Dictated by : GAYLE MOLINA DO This examination was interpreted and the report reviewed and electronically signed by: GAYLE MOLINA DO on Feb 29 2024 12:43PM [facility] DIVISION OF RADIOLOGY * * *Final Report* * * DATE OF EXAM: Feb 29 2024 12:00PM [facility] 0504 - CT BRAIN WO IVCON [...] pseudophakia. DIVISION OF RADIOLOGY Provider, Macey Stan [facility] - 02/29/2024 * * *Final Report* * * DATE OF EXAM: Feb 29 2024 12:00PM [facility] 0504 - CT BRAIN WO IVCON [...] intracranial abnormality or significant change from 03/07/2019 Continuum Of Care Manager: BIRD Transcribe Date/Time: Feb 29 2024 12:38P Dictated by : GAYLE MOLINA DO This examination was interpreted and the report reviewed and electronically signed by: GAYLE MOLINA DO on Feb 29 2024 12:43PM [facility] Radiology Study observation (narrative) Brooke rojas [facility] CT Head WO contrastOrdered B y: Ccf Provider on 02-29-2024 [facility] 12 Lead EKGon 01-08-2024 12 Lead EKG [facility] Cardiovascular Services [address] [place] [address] 12 Lead EKG 01/08/24 1906 MR#: [id number] Acct: [id number] Name: ALEX BROOKS Rep #: [id number] : 1945 78 From: Aidan Atkinson MD [...] Abnormal ECG Confirmed by CHRISTINE LINCOLN, AIDAN ([id number]), editor sound GEGE TURPIN ([id number]) on 01/12/2024 10:11:14 AM Referred By: Confirmed By:AIDAN ATKINSON MD 01/12/24 1011 Date Aidan Atkinson MD CC: CHRISTAL Lam; Dr. Lisandro Mora MD Signed Normal [facility] BNP,B-Type NATRIURETIC PEPTI Uma 01-08-2024 Natriuretic peptide B (Bld) [Mass/Vol] 17.2 pg/mL Normal 0-100 [facility] Comment on above: Performed By: #### L 503.6601 ####[facility] [address] [place], [address] Basic Metabolic Profile (BMP )on 01-08-2024 BUN/CRE 28.9 RATIO High 10-20 [facility] Comment on above: Order Comment: 'TROP ' Serial specimen #1, #2 or #3: 1 Performed By: #### L 500.2500, L100.0100, L501.4020 #### [facility] [address] [place], [address] CA,Total 9.3 mg/dL Normal 8.5-10.1 [facility] Comment on above: Order Comment: 'TROP ' Serial specimen #1, #2 or #3: 1 Performed By: #### L 500.2500, L100.0100, L501.4020 #### [facility] [address] [place], [address] Chloride [Moles/Vol] 114 mmol/L High 98-107 [facility] Comment on above: Order Comment: 'TROP ' Serial specimen #1, #2 or #3: 1 Performed By: #### L 500.2500, L100.0100, L501.4020 #### [facility] [address] [place], [address] CO2 [Moles/Vol] 24.0 mmol/L Normal 21.0-32.0 [facility] Comment on above: Order Comment: 'TROP ' Serial specimen #1, #2 or #3: 1 Performed By: #### L 500.2500, L100.0100, L501.4020 #### [facility] [address] [place], [address] Creatinine [Mass/Vol] 0.76 mg/dL Normal 0.70-1.30 [facility] Comment on above: Order Comment: 'TROP ' Serial specimen #1, #2 or #3: 1 Result Comment: The validity of the calculated GFR GFRAA in patients over 70 years has not been determined. Clinical correlation is essential. Performed By: #### L 500.2500, L100.0100, L501.4020 #### [facility] [address] [place], [address] ECRCL 83.23 ml/min Normal [facility] Comment on above: Order Comment: 'TROP ' Serial specimen #1, #2 or #3: 1 Performed By: #### L 500.2500, L100.0100, L501.4020 #### [facility] [address] [place], [address] EST GFR - AA 127 mL/min Normal >60 [facility] Comment on above: Order Comment: 'TROP ' Serial specimen #1, #2 or #3: 1 Result Comment: Afri can Estonian GFR Calc Performed By: #### L 500.2500, L100.0100, L501.4020 #### [facility] [address] [place], [address] GAP 4 Low 5-15 [facility] Comment on above: Order Comment: 'TROP ' Serial specimen #1, #2 or #3: 1 Performed By: #### L 500.2500, L100.0100, L501.4020 #### [facility] [address] [place], [address] GFR/1.73 sq M.predicted among non-blacks MDRD (S/P/Bld) [Vol rate/Area] 105 mL/min/{1.73_m2} Normal >60 [facility] Comment on above: Order Comment: 'TROP ' Serial specimen #1, #2 or #3: 1 Result Comment: Non- GFR Calc Performed By: #### L 500.2500, L100.0100, L501.4020 #### [facility] [address] [place], [address] Glucose [Mass/Vol] 124 mg/dL High 74-106 [facility] Comment on above: Order Comment: 'TROP ' Serial specimen #1, #2 or #3: 1 Result Comment: Fast ing Glucose result from 100 to 125 mg/dL suggests IMPAIRED HOMEOSTASIS per A.D.A. criteria. Performed By: #### L 500.2500, L100.0100, L501.4020 #### [facility] [address] [place], [address] Potassium [Moles/Vol] 4.1 mmol/L Normal 3.5-5.1 [facility] Comment on above: Order Comment: 'TROP ' Serial specimen #1, #2 or #3: 1 Performed By: #### L 500.2500, L100.0100, L501.4020 #### [facility] [address] [place], [address] Sodium [Moles/Vol] 143 mmol/L Normal 136-145 [facility] Comment on above: Order Comment: 'TROP ' Serial specimen #1, #2 or #3: 1 Performed By: #### L 500.2500, L100.0100, L501.4020 #### [facility] [address] [place], [address] Urea nitrogen [Mass/Vol] 22 mg/dL High 7-18 [facility] Comment on above: Order Comment: 'TROP ' Serial specimen #1, #2 or #3: 1 Performed By: #### L 500.2500, L100.0100, L501.4020 #### [facility] [address] [place], [address] CBC W/Diff, Automatedon 10-0 4-2023 Absolute Lymph 2.99 X10 3/uL Normal 0.83-4.51 [facility] Comment on above: Performed By: #### L 500.2500, L100.0100, L501.4020 #### [facility] [address] [place], [address] Absolute Neut 4.1 X10 3/uL Normal 2.0-7.7 [facility] Comment on above: Performed By: #### L 500.2500, L100.0100, L501.4020 #### [facility] [address] [place], [address] Basophils/100 WBC (Bld) 0.7 % Normal 0-1 [facility] Comment on above: Performed By: #### L 500.2500, L100.0100, L501.4020 #### [facility] [address] [place], [address] Eosinophils/100 WBC (Bld) 3.6 % Normal 0-5 [facility] Comment on above: Performed By: #### L 500.2500, L100.0100, L501.4020 #### [facility] [address] [place], [address] Erythrocyte distribution width (RBC) [Ratio] 13.9 % Normal 11.6-14.6 [facility] Comment on above: Performed By: #### L 500.2500, L100.0100, L501.4020 #### [facility] [address] [place], [address] Hematocrit (Bld) [Volume fraction] 48.2 % Normal 40-54 [facility] Comment on above: Performed By: #### L 500.2500, L100.0100, L501.4020 #### [facility] [address] [place], [address] Hemoglobin (Bld) [Mass/Vol] 15.8 g/dL Normal 13.0-16.5 [facility] Comment on above: Performed By: #### L 500.2500, L100.0100, L501.4020 #### [facility] [address] [place], [address] IG% 0.100 Normal 0.0-0.9 [facility] Comment on above: Result Comment: IG% - Immature Granulocytes (promyelocytes, myelocytes and metamyelocytes) > 1% indicates that a LEFT SHIFT is Present. Performed By: #### L 500.2500, L100.0100, L501.4020 #### [facility] [address] [place], [address] Lymphocytes/100 WBC (Bld) 36.3 % Normal 19-41 [facility] Comment on above: Performed By: #### L 500.2500, L100.0100, L501.4020 #### [facility] [address] [place], [address] MCH (RBC) [Entitic mass] 30.9 pg Normal 27.0-32.0 [facility] Comment on above: Performed By: #### L 500.2500, L100.0100, L501.4020 #### [facility] [address] [place], [address] MCHC (RBC) [Mass/Vol] 32.8 g/dL Normal 32-36 [facility] Comment on above: Performed By: #### L 500.2500, L100.0100, L501.4020 #### [facility] [address] [place], [address] MCV (RBC) [Entitic vol] 94.1 fL High 80-94 [facility] Comment on above: Performed By: #### L 500.2500, L100.0100, L501.4020 #### [facility] [address] [place], [address] Monocytes/100 WBC (Bld) 9.1 % Normal 0-10 [facility] Comment on above: Performed By: #### L 500.2500, L100.0100, L501.4020 #### [facility] [address] [place], [address] Neutrophils/100 WBC (Bld) 50.2 % Normal 47-70 [facility] Comment on above: Performed By: #### L 500.2500, L100.0100, L501.4020 #### [facility] [address] [place], [address] Nucleated RBC (Bld) [#/Vol] 0 10*3/uL Normal 0-5 [facility] Comment on above: Performed By: #### L 500.2500, L100.0100, L501.4020 #### [facility] [address] [place], [address] Platelet mean volume (Bld) [Entitic vol] 9.1 fL Normal 6.2-12.0 [facility] Comment on above: Performed By: #### L 500.2500, L100.0100, L501.4020 #### [facility] [address] [place], [address] Platelets (Bld) [#/Vol] 210 10*3/uL Normal 150-450 [facility] Comment on above: Performed By: #### L 500.2500, L100.0100, L501.4020 #### [facility] [address] [place], [address] RBC (Bld) [#/Vol] 5.12 10*6/uL Normal 4.6-6.2 [facility] Comment on above: Performed By: #### L 500.2500, L100.0100, L501.4020 #### [facility] [address] [place], [address] RDW SD 48.1 fl High 35.1-43.9 [facility] Comment on above: Performed By: #### L 500.2500, L100.0100, L501.4020 #### [facility] [address] [place], [address] WBC (Bld) [#/Vol] 8.2 10*3/uL Normal 4.4-11.0 [facility] Comment on above: Performed By: #### L 500.2500, L100.0100, L501.4020 #### [facility] [address] [place], [address] Chest 1 View (Portable)on Chest 1 View (Portable) [facility] Imaging Services [address] [place] [address] Chest 1 View (Portable) MR#: [id number] Acct: [id number] Name: ALEX BROOKS Rep #: [id number] : 1945 M 78 From: Jake childress MD PCP: CHRISTAL Navarro Status: REG ER Study: Chest 1 View (Portable) Date of Exam: 01/08/24 Exam# [id number] Ordering Dr: Lisandro Mora MD [id number] STUDY: X-RAY CHEST REASON FOR EXAM: Male, [...] CC: CHRISTAL Lam; Dr. Lisandro Mora MD Continuum Of Care Manager: Signed Normal [facility] Emergency Department Summary on 01-08-2024 Emergency Department Summary [facility] Medical Records Department [address] [place] [address] Emergency Department Summary 01/08/24 MR#: [id number] Acct: [id number] Name: ALEX BROOKS Rep #: [id number] : 1945 78 From: Lisandro Mora MD [...] no fevers or chills. No leg edema. [facility] Medical History Wears glasses Alcohol use Kidney [...] sore th (more content not included)... Normal [facility] L501.4020on 01-08-2024 TROPONIN-I HS 18 pg/mL Normal 3.0-78.0 [facility] Comment on above: Order Comment: 'TROP ' Serial specimen #1, #2 or #3: 1 Result Comment: Ángel zhu Note: New Test Units and Gender Specific Reference Ranges. For more information see Policy Stat Procedure [place] High Sensitivity Troponin (TNIH) and attachments. Performed By: #### L 500.2500, L100.0100, L501.4020 #### [facility] [address] [place], [address] Prothrombin Time w/INRon INR Coag (PPP) [Relative time] 2.2 {INR} Normal [facility] Comment on above: Performed By: #### L 300.3900 ####[facility] [address] [place], [address] PT Coag (PPP) [Time] 24.2 s High 11.7-14.9 [facility] Comment on above: Performed By: #### L 300.3900 ####[facility] [address] [place], [address] PT panel Coag (PPP)on 2023 INR Coag (Bld) [Relative time] [facility] Patient calling to report lab result INR=1.3. Result in EPIC. [facility] UA DIP, URINE (POC)on 2023 BILIRUBIN UA (POCT) Negative Negative [facility] CLARITY UA (POCT) Clear [facility] COLOR UA (POCT) Yellow [facility] GLUCOSE UA (POCT) Negative Negative mg/dL [facility] Hemoglobin Ql (U) Negative Negative [facility] Interpretation and review of laboratory results Abnormal [facility] KETONE UA (POCT) Negative Negative mg/dL [facility] LEUKOCYTES UA (POCT) Negative Negative [facility] NITRITE UA (POCT) Negative Negative [facility] PH UA (POCT) 6.0 4.5 - 8.0 [facility] Protein Ql (U) 30 mg/dL Abnormal Negative [facility] SPECIFIC GRAVITY UA (POCT) 1.025 1.005 - 1.030 [facility] UROBILINOGEN UA (POCT) 0.2 Nicki l E.U./dL [facility] Location:[facility], [address] [facility] [address], [place], [place], [address] [place] [address] POINT OF CARE [facility] CNOVon 11-12-2023 CNACMMY Office Visit (ARUNA ) ALEX BROOKS ([id number]) 1945 M [facility] Date Time Provider Department 11/12/23 1:00 [...] reducing alcohol intake. He was living in [facility] since he was born and moved to [place] for job-related which he regret as business environment and living was not the same. About 10 year ago, he moved to [place] and that was when he started experiencing exacerbation of all the condition. 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 No diabetes Coumadin [facility] [address] [facility] [address] Dept: [phone] Alex Brooks : 1945 [facility] Medicine Acupuncture Intake Form (For Patient Review Regarding Diagnostic Exam) I have received a diagnostic exam by physician or chiropractor within the last six months regarding the condition for which I am seeking treatment. Patient Signature: Alex Brooks Date: 11/12/23 Recruiting Specialist Signature: Walt Yang Lac. Date: 11/12/23 The patient's history is well detailed in the EMR. Current view: Showing all answers [facility] Mychart Additional Demo Question 11/05/2023 10:20 AM EDT - Filed by Patient Is this visit related to an accident, other than Workers' Compensation? No Is this visit related to Workers' Compensation? No Do you need an photo technician? No [facility] Promis Cat V2.0-Physical Function-28 Days [...] a medical diagnosis? (more content not included)... [facility] ALEX [facility]OO[facility] ( ) [...] message on pt's phone instructions. 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 [facility] PT panel Coag (PPP)on 2023 INR Coag (Bld) [Relative time] 2.5 {INR} [facility] PT panel Coag (PPP)on 2023 INR Coag (Bld) [Relative time] 1.9 (ext) 2.0 - 3.0 [facility] PT panel Coag (PPP)on 2023 INR Coag (Bld) [Relative time] 2.0 {INR} 2.0 - 3.0 [facility] XR Chest PA and Lateralon IMPRESSION: No acute radiographic abnormality. Continuum Of Care Manager: [facility] Transcribe Date/Time: Aug 25 2023 4:47P Dictated by : DENIA BRADY MD This examination was interpreted and the report reviewed and electronically signed by: DENIA BRADY MD on Aug 25 2023 4:52PM [facility] DIVISION OF RADIOLOGY * * *Final [...] soft tissues: Unremarkable. DIVISION OF RADIOLOGY Provider, [facility] Stan Choudhury - 08/25/2023 * * [...] Unremarkable. IMPRESSION IMPRESSION: No acute radiographic abnormality. Continuum Of Care Manager: BIRD Transcribe Date/Time: Aug 25 2023 4:47P Dictated by : DENIA BRADY MD This examination was interpreted and the report reviewed and electronically signed by: DENIA BRADY MD on Aug 25 2023 4:52PM [facility] Radiology Study observation (narrative) Brooke rojas [facility] XR Chest PA and LateralOrder ed By: [facility] Provider on 08-25-2023 [facility] PT panel Coag (PPP)on 2023 [facility] CNPNon 07-30-2023 CNPN Telephone (FMUPCE) ALEX BROOKS [...] leave a detailed message. 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 - Back Brace (BACK SUPPORT S/M) [facility] Use as instructed. - lisinopril (ZESTRIL) 20 [...] Ureterolithiasis [N20.1] 02 (more content not included)... [facility] PT panel Coag (PPP)on 2023 INR Coag (Bld) [Relative time] 1.9 {INR} [facility] CNPPolly 07-15-2023 CNPN Telephone (FMUPCE) [...] out of the office. 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 - Back Brace (BACK SUPPORT S/M) [facility] Use as instructed. - lisinopril (ZESTRIL) 20 [...] cough [R05.3] 10/04/2015 (more content not included)... [facility] PT panel Coag (PPP)on 2023 INR Coag (Bld) [Relative time] 2.4 {INR} [facility] CNPPolly 06-30-2023 CNPN Telephone (FMUPCE) ALEX BROOKS [...] detailed message for pt. ALVERTO Jain Rosa, APRN.COMPUTER TECHNOLOGY TRAINER 06/30/2023 4:07 PM Signed INR looks good, [...] Date Reviewed: 06/29/2023 Reviewed by: Zeny Lam APRN.COMPUTER TECHNOLOGY TRAINER - Fully Assessed Reason for Visit: Anticoagulation [8] Order(s):PROTHROMBIN TIME [SQPT] Order #: [id number] Prescriptions as of 06/30/2023 - oxyCODONE-acetaminoph en [...] needed. - Back Brace (BACK SUPPORT S/M) [facility] Use as instructed. - lisinopril (ZESTRIL) 20 [...] 10/04/2015 05/05/2016 (more content not included)... Normal [facility] PT panel Coag (PPP)on 2023 INR Coag (Bld) [Relative time] 2.2 {INR} [facility] PT panel Coag (PPP)on 2023 INR Coag (Bld) [Relative time] 2.9 {INR} [facility] PT panel Coag (PPP)on 2023 INR Coag (Bld) [Relative time] 4.5 {INR} [facility] MR Lumbar spine WO contrasto n 05-29-2023 Radiology Result ACTIONABLE Abnormal [facility] PT panel Coag (PPP)on 2023 INR Coag (Bld) [Relative time] 2.6 {INR} [facility] CNPPolly 05-15-2023 CNPN Telephone ([facility]) ALEX BROOKS ( ) 1945 M T [...] leave a detailed message. ALVERTO Jain Rosa, APRN.COMPUTER TECHNOLOGY TRAINER 05/15/2023 9:02 AM Signed We have previously [...] disease) [K21.9] more content not included)... Normal [facility] Brain/Head without Contrasto n 05-14-2023 Brain/Head without Contrast [facility] Imaging Services [address] [place] [address] Brain/Head without Contrast MR#: [id number] Acct: [id number] Name: ALEX BROOKS Rep #: [id number] : 1945 M 77 From: Gustavo ayala MD PCP: Dr. Franc Hills MD Status: REG ER Study: Brain/Head without Contrast Date of Exam: 11/27 Exam# [id number] Ordering Dr: Mckinley Varner [id number] STUDY: CT BRAIN WITHOUT CONTRAST REASON FOR [...] 13:14 EST Reading Location ID and State: [facility] / [place] , Service support , CC: CHRISTAL Varner; Dr. Franc Hills MD Continuum Of Care Manager: Signed Normal [facility] Elbow min 3 Viewson 05-14-19 Elbow min 3 Views [facility] Imaging Services [address] [place] [address] Elbow min 3 Views MR#: [id number] Acct: [id number] Name: ALEX BROOKS Rep #: [id number] : 1945 M 77 From: Gustavo ayala MD PCP: Dr. Franc Hilsl MD Status: REG ER Study: Elbow min 3 Views Date of Exam: 05/14/23 Exam# [id number] Ordering Dr: Mckinley Varner [id number] STUDY: X-RAY - LEFT ELBOW REASON FOR [...] CC: CHRISTAL Varner; Dr. Franc Hills MD Continuum Of Care Manager: Signed Normal [facility] Emergency Department Summary on 05-14-2023 Emergency Department Summary [facility] Medical Records Department [address] [place] [address] Emergency Department Summary 05/14/23 MR#: [id number] Acct: [id number] Name: ALEX BROOKS Rep #: [id number] : 1945 77 From: Lisandro Mora MD [...] little relief. He is here for evaluation. [facility] Medical History Alcohol use Asthma Back pain [...] Skin: Negati (more content not included)... Normal [facility] Spine Lumbar without Contras ton 05-14-2023 Spine Lumbar without Contrast [facility] Imaging Services [address] [place] [address] Spine Lumbar without Contrast MR#: [id number] Acct: [id number] Name: ALEX BROOKS Rep #: [id number] : 1945 M 77 From: Gustavo ayala MD PCP: Dr. Franc Hills MD Status: REG ER Study: Spine Lumbar without Contrast Date of Exam: Exam# [id number] Ordering Dr: Mckinley Varner BOOK AGENT-C [id number] STUDY: CT LUMBAR SPINE WITHOUT CONTRAST REASON [...] CC: CHRISTAL Varner; Dr. 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 [facility] PT panel Coag (PPP)on 2022 INR Coag (Bld) [Relative time] 2.6 {INR} [facility] PT panel Coag (PPP)on 2022 INR Coag (Bld) [Relative time] 2.2 {INR} [facility] PT panel Coag (PPP)on 2022 INR Coag (Bld) [Relative time] 5.3 (ext) 2.0 - 3.0 [facility] PT panel Coag (PPP)on 2022 INR Coag (Bld) [Relative time] 3.3 {INR} [facility] PT panel Coag (PPP)on 2022 INR Coag (Bld) [Relative time] 2.1 {INR} [facility] PT panel Coag (PPP)on 2022 INR Coag (Bld) [Relative time] 2.4 (ext) 2.0 - 3.0 [facility] PT panel Coag (PPP)on 2022 INR Coag (Bld) [Relative time] 1.0 {INR} Abnormal 2.0 - 3.0 [facility] PT panel Coag (PPP)on 2022 INR Coag (Bld) [Relative time] 3.7 {INR} [facility] PT panel Coag (PPP)on 2022 INR Coag (Bld) [Relative time] 2.1 EXT 2.5 - 3.5 [facility] PT panel Coag (PPP)on 2022 INR Coag (Bld) [Relative time] 2.4 {INR} [facility] PT panel Coag (PPP)on 2022 INR Coag (Bld) [Relative time] 1.0 {INR} [facility] PT panel Coag (PPP)on 2021 INR Coag (Bld) [Relative time] 3.2 {INR} Abnormal 2.0 - 3.0 [facility] Laboratory - Coagulationon 1 05-25-2021 INR Coag (Bld) [Relative time] 1.1 {INR} [facility] Work Phone: Comment on above: Critical Value > 4.0 Whole blood prothrombin time on 03-24-2022 PT Coag (Bld) [Time] 13.8 s 11.7-14.9 [facility] Work Phone: INR (POC)on 02-18-2022 INR Coag (PPP) [Relative time] 2.6 {INR} High 0.8 - 1.2 [facility] Internal Quality Check Acceptable [facility] INRon 01-08-2022 INR Coag (Bld) [Relative time] 1.8 {INR} Abnormal 2.0 - 3.0 [facility] Absolute lymphocyte counton 09-28-2021 Lymphocytes Auto (Unsp spec) [#/Vol] 2.86 10*3/uL 0.83-4.51 [facility] Work Phone: Basophil percentageon 2021 Basophils/100 WBC (Bld) 0.7 % 0-1 [facility] Work Phone: Chloride [Moles/Vol] 106 mmol/L 98-107 [facility] Work Phone: Eosinophils/100 WBC (Bld) 5.2 % 0-5 [facility] Work Phone: Glucose [Mass/Vol] 99 mg/dL 74-106 [facility] Work Phone: Neutrophils (Bld) [#/Vol] 3.0 10*3/uL 2.0-7.7 [facility] Work Phone: Neutrophils/100 WBC (Bld) 41.2 % 47-70 [facility] Work Phone: Potassium [Moles/Vol] 3.8 mmol/L 3.5-5.1 [facility] Work Phone: Sodium [Moles/Vol] 138 mmol/L 136-145 [facility] Work Phone: WBC (Bld) [#/Vol] 7.3 10*3/uL 4.4-11.0 [facility] Work Phone: Blood erythrocytes count (nu mber/volume)on 09-28-2021 RBC (Bld) [#/Vol] 4.91 10*6/uL 4.6-6.2 [facility] Work Phone: Blood hemoglobin measurement (mass/volume)on 09-28-2021 Hemoglobin (Bld) [Mass/Vol] 15.5 g/dL 13.0-16.5 [facility] Work Phone: Blood lymphocytes/100 leukoc yteson 09-28-2021 Lymphocytes/100 WBC (Bld) 39.1 % 19-41 [facility] Work Phone: Blood monocytes/100 leukocyt eson 09-28-2021 Monocytes/100 WBC (Bld) 13.7 % 0-10 [facility] Work Phone: Blood platelet mean volumeon 09-28-2021 Platelet mean volume (Bld) [Entitic vol] 9.6 fL 6.2-12.0 [facility] Work Phone: Determination of erythrocyte mean corpuscular volume (MCV)on 09-28-2021 MCV (RBC) [Entitic vol] 95.7 fL 80-94 [facility] Work Phone: [phone] Hematocrit Auto (Bld) [Volum e fraction]on 09-28-2021 Hematocrit (Bld) [Volume fraction] 47.0 % 40-54 [facility] Work Phone: INR in Blood by Coagulation assayon 09-28-2021 INR Coag (Bld) [Relative time] 1.7 {INR} [facility] Work Phone: [phone] Laboratory - Chemistry and C hemistry - challengeon 09-28-2021 CO2 [Moles/Vol] 26.0 mmol/L 21.0-32.0 [facility] Work Phone: Urea nitrogen/Creatinine [Mass ratio] 16.4 mg/mg 10-20 [facility] Work Phone: [phone] Laboratory - Coagulationon 0 09-28-2021 PT Coag (PPP) [Time] 19.4 s 11.7-14.9 [facility] Work Phone: [phone] Laboratory - Hematology and Cell countson 09-28-2021 Erythrocyte distribution width (RBC) [Entitic vol] 49.6 fL 35.1-43.9 [facility] Work Phone: [phone] Erythrocyte distribution width (RBC) [Ratio] 14.0 % 11.6-14.6 [facility] Work Phone: [phone] Immature granulocytes/100 WBC (Bld) 0.100 % 0.0-0.9 [facility] Work Phone: Comment on above: IG% - Immature Granu locytes (promyelocytes, myelocytes and metamyelocytes) > 1% indicates that a LEFT SHIFT is Present. MCH (RBC) [Entitic mass] 31.6 pg 27.0-32.0 [facility] Work Phone: Nucleated RBC/100 WBC (Bld) [Ratio] 0 % 0-5 [facility] Work Phone: [phone] MCHC Auto (RBC) [Mass/Vol]on 09-28-2021 MCHC (RBC) [Mass/Vol] 33.0 g/dL 32-36 [facility] Work Phone: No Panel Informationon 09-28 Estimated Creatinine Clearance Calc 80.94 ml/min [facility] Work Phone: Estimated GFR (MDRD) Amer 112 mL/min >60 [facility] Work Phone: Comment on above: GFR Calc Estimated GFR (MDRD) Non-Af Amer 92 mL/min >60 [facility] Work Phone: Comment on above: Non- GFR Calc Platelets bldon 09-28-2021 Platelets (Bld) [#/Vol] 201 10*3/uL 150-450 [facility] Work Phone: Serum or plasma calcium wilmar urement (mass/volume)on 09-28-2021 Calcium [Mass/Vol] 9.3 mg/dL 8.5-10.1 [facility] Work Phone: Serum or plasma creatinine m easurement (mass/volume)on 09-28-2021 Creatinine [Mass/Vol] 0.85 mg/dL 0.70-1.30 [facility] Work Phone: Comment on above: The validity of the calculated GFR & GFRAA in patients over 70 years has not been determined. Clinical correlation is essential. Serum or plasma urea nitroge n measurement (mass/volume)on 09-28-2021 Urea nitrogen [Mass/Vol] 14 mg/dL 7-18 [facility] Work Phone: Thin prep Papanicolaou smear with manual screeningon 09-28-2021 Thin prep Papanicolaou smear with manual screening 6 5-15 [facility] Work Phone: PT panel Coag (PPP)on 2021 INR Coag (Bld) [Relative time] 2.2 {INR} 2 - 3 [facility] PT panel Coag (PPP)on 2021 INR Coag (Bld) [Relative time] 2.1(EXT) 2.0 - 3.0 [facility] PT panel Coag (PPP)on 2021 INR Coag (Bld) [Relative time] 1.7 {INR} [facility] XR Wrist - right PA and Late ral and Obliqueon 01-13-2020 IMPRESSION: Tiny accessory bone versus tiny avulsion fracture along the radial styloid. Continuum Of Care Manager: BIRD Transcribe Date/Time: Jan 13 2020 10:30A Dictated by : ELSY BARNARD MD This examination was interpreted and the report reviewed and electronically signed by: ELSY BARNARD MD on Jan 13 2020 10:32AM [facility] DIVISION OF RADIOLOGY * * *Final [...] soft tissue swelling. DIVISION OF RADIOLOGY Provider, [facility] - 01/13/2020 * * *Final Report* * [...] tiny avulsion fracture along the radial styloid. Continuum Of Care Manager: BIRD Transcribe Date/Time: Jan 13 2020 10:30A Dictated by : ELSY BARNARD MD This examination was interpreted and the report reviewed and electronically signed by: ELSY BARNARD MD on Jan 13 2020 10:32AM EST [facility] Radiology Study observation (narrative) Brooke rojsa [facility] XR Wrist - right PA and Late ral and ObliqueOrdered By: [facility] Provider on 01-13-2020 [facility] No Panel Information [facility] Vital Signs Date Time Vital Sign Value Performing Clinician Facility 11-20-2024 09:03-0400 Body temperature 98.1 [degF] Dr. Danielle Han DO Work Phone: [phone] [address] 11-20-2024 09:03-0400 Diastolic blood pressure 87 mm[Hg] Dr. Danielle Han DO Work Phone: [phone] [place] [address] 11-20-2024 09:03-0400 Heart rate 74 /min Dr. Danielle Han DO Work Phone: [phone] [address] 11-20-2024 09:03-0400 Respiratory rate 19 /min Dr. Danielle Han DO Work Phone: [phone] [place] [address] 11-20-2024 09:03-0400 SaO2% (BldA) [Mass fraction] 100 % Dr. Danielle Han DO Work Phone: [phone] [place] [address] 11-20-2024 09:03-0400 Systolic blood pressure 164 mm[Hg] Dr. Danielle Han DO Work Phone: [phone] [place] [address] 11-20-2024 09:02-0400 Body height 185.[address] Danielle Han DO Work Phone: [phone] [place] [address] 11-20-2024 09:02-0400 Body mass index (BMI) [Ratio] 25.1 kg/m2 Dr. Danielle Han DO Work Phone: [phone] [place] [address] 11-20-2024 09:02-0400 Body weight 86.[address] Danielle Han DO Work Phone: [phone] [place] [address] 11-15-2024 13:48-0400 Diastolic blood pressure 68 mm[Hg] Zeny Genaro DIRECTOR OF INCOME TAX.COMPUTER TECHNOLOGY TRAINER Work Phone: [facility] 11-15-2024 13:48-0400 Systolic blood pressure 128 mm[Hg] Zeny Genaro DIRECTOR OF INCOME TAX.COMPUTER TECHNOLOGY TRAINER Work Phone: [facility] 11-15-2024 12:43-0400 Body mass index (BMI) [Ratio] 27.59 kg/m2 Zeny Genaro DIRECTOR OF INCOME TAX.COMPUTER TECHNOLOGY TRAINER Work Phone: [facility] 11-15-2024 12:43-0400 Body weight 89.4 kg Zeny Genaro DIRECTOR OF INCOME TAX.COMPUTER TECHNOLOGY TRAINER Work Phone: [facility] 11-15-2024 12:43-0400 Heart rate 80 /min Zeny Genaro DIRECTOR OF INCOME TAX.COMPUTER TECHNOLOGY TRAINER Work Phone: [facility] 11-15-2024 12:43-0400 Respiratory rate 20 /min Zeny Genaro DIRECTOR OF INCOME TAX.COMPUTER TECHNOLOGY TRAINER Work Phone: [facility] 10-20-2024 12:56-0400 Diastolic blood pressure 82 mm[Hg] Mirlande Funez MD Work Phone: [facility] 10-20-2024 12:56-0400 Heart rate 114 /min Mirlande Funez MD Work Phone: [facility] 10-20-2024 12:56-0400 Respiratory rate 17 /min Mirlande Funez MD Work Phone: [facility] 10-20-2024 12:56-0400 SaO2% (BldA) [Mass fraction] 96 % Mirlande Funez MD Work Phone: [facility] 10-20-2024 12:56-0400 Systolic blood pressure 132 mm[Hg] Mirlande Funez MD Work Phone: [facility] 08-15-2024 13:31-0400 Body height 180 cm Zeny Genaro DIRECTOR OF INCOME TAX.COMPUTER TECHNOLOGY TRAINER Work Phone: [facility] 08-15-2024 13:31-0400 Body mass index (BMI) [Ratio] 26.91 kg/m2 Zeny Genaro DIRECTOR OF INCOME TAX.COMPUTER TECHNOLOGY TRAINER Work Phone: [facility] 08-15-2024 13:31-0400 Body weight 87.2 kg Zeny Genaro DIRECTOR OF INCOME TAX.COMPUTER TECHNOLOGY TRAINER Work Phone: [facility] 08-15-2024 13:31-0400 Diastolic blood pressure 74 mm[Hg] Zeny Genaro DIRECTOR OF INCOME TAX.COMPUTER TECHNOLOGY TRAINER Work Phone: [facility] 08-15-2024 13:31-0400 Heart rate 96 /min Zeny Genaro DIRECTOR OF INCOME TAX.COMPUTER TECHNOLOGY TRAINER Work Phone: [facility] 08-15-2024 13:31-0400 SaO2% (BldA) [Mass fraction] 97 % Zeny Genaro DIRECTOR OF INCOME TAX.COMPUTER TECHNOLOGY TRAINER Work Phone: [facility] 08-15-2024 13:31-0400 Systolic blood pressure 100 mm[Hg] Zeny Genaro DIRECTOR OF INCOME TAX.COMPUTER TECHNOLOGY TRAINER Work Phone: [facility] 08-08-2024 12:54-0400 Body height 185.4 cm Sunny Mercedes MD Work Phone: [facility] 08-08-2024 12:54-0400 Body mass index (BMI) [Ratio] 25.07 kg/m2 Sunny Mercedes MD Work Phone: [facility] 08-08-2024 12:54-0400 Body weight 86.18 kg Sunny Mercedes MD Work Phone: [facility] 08-08-2024 12:54-0400 Diastolic blood pressure 76 mm[Hg] Sunny Mercedes MD Work Phone: [facility] 08-08-2024 12:54-0400 Heart rate 82 /min Sunny Mercedes MD Work Phone: [facility] 08-08-2024 12:54-0400 Respiratory rate 16 /min Sunny Mercedes MD Work Phone: [facility] 08-08-2024 12:54-0400 SaO2% (BldA) [Mass fraction] 96 % Sunny Mercedes MD Work Phone: [facility] 08-08-2024 12:54-0400 Systolic blood pressure 132 mm[Hg] Sunny Mercedes MD Work Phone: [facility] 07-25-2024 11:14-0400 Body mass index (BMI) [Ratio] 25.62 kg/m2 Zeny Genaro DIRECTOR OF INCOME TAX.COMPUTER TECHNOLOGY TRAINER Work Phone: [facility] 07-25-2024 11:14-0400 Body weight 88.1 kg Zeny Genaro DIRECTOR OF INCOME TAX.COMPUTER TECHNOLOGY TRAINER Work Phone: [facility] 07-25-2024 11:14-0400 Diastolic blood pressure 78 mm[Hg] Zeny Genaro DIRECTOR OF INCOME TAX.COMPUTER TECHNOLOGY TRAINER Work Phone: [facility] 07-25-2024 11:14-0400 Heart rate 98 /min Zeny Genaro DIRECTOR OF INCOME TAX.COMPUTER TECHNOLOGY TRAINER Work Phone: [facility] 07-25-2024 11:14-0400 SaO2% (BldA) [Mass fraction] 96 % Zeny Genaro DIRECTOR OF INCOME TAX.COMPUTER TECHNOLOGY TRAINER Work Phone: [facility] 07-25-2024 11:14-0400 Systolic blood pressure 118 mm[Hg] Zeny Genaro DIRECTOR OF INCOME TAX.COMPUTER TECHNOLOGY TRAINER Work Phone: [facility] 06-08-2024 15:06-0500 Body mass index (BMI) [Ratio] 25.65 kg/m2 Zeny Genaro DIRECTOR OF INCOME TAX.COMPUTER TECHNOLOGY TRAINER Work Phone: [facility] 06-08-2024 15:06-0500 Body weight 88.2 kg Zeny Genaro DIRECTOR OF INCOME TAX.COMPUTER TECHNOLOGY TRAINER Work Phone: [facility] 06-08-2024 15:06-0500 Diastolic blood pressure 60 mm[Hg] Zeny Genaro DIRECTOR OF INCOME TAX.COMPUTER TECHNOLOGY TRAINER Work Phone: [facility] 06-08-2024 15:06-0500 Heart rate 84 /min Zeny Genaro DIRECTOR OF INCOME TAX.COMPUTER TECHNOLOGY TRAINER Work Phone: [facility] 06-08-2024 15:06-0500 SaO2% (BldA) [Mass fraction] 96 % Zeny Genaro DIRECTOR OF INCOME TAX.COMPUTER TECHNOLOGY TRAINER Work Phone: [facility] 06-08-2024 15:06-0500 Systolic blood pressure 100 mm[Hg] Zeny Elizabethr DIRECTOR OF INCOME TAX.COMPUTER TECHNOLOGY TRAINER Work Phone: [facility] 05-24-2024 11:36-0500 Diastolic blood pressure 58 mm[Hg] Edgar Loaiza DO Work Phone: [facility] 05-24-2024 11:36-0500 Heart rate 83 /min Edgar Loaiza DO Work Phone: [facility] 05-24-2024 11:36-0500 SaO2% (BldA) [Mass fraction] 95 % Edgar Loaiza DO Work Phone: [facility] 05-24-2024 11:36-0500 Systolic blood pressure 98 mm[Hg] Edgar Loaiza DO Work Phone: [facility] 05-17-2024 13:52-0500 Body mass index (BMI) [Ratio] 25.86 kg/m2 Teri Yasmani DIRECTOR OF INCOME TAX.COMPUTER TECHNOLOGY TRAINER Work Phone: [facility] 05-17-2024 13:52-0500 Body weight 88.91 kg Teri Yasmani DIRECTOR OF INCOME TAX.COMPUTER TECHNOLOGY TRAINER Work Phone: [facility] 05-17-2024 13:52-0500 Diastolic blood pressure 72 mm[Hg] Teri Yasmani DIRECTOR OF INCOME TAX.COMPUTER TECHNOLOGY TRAINER Work Phone: [facility] 05-17-2024 13:52-0500 Heart rate 75 /min Teri Yasmani DIRECTOR OF INCOME TAX.COMPUTER TECHNOLOGY TRAINER Work Phone: [facility] 05-17-2024 13:52-0500 SaO2% (BldA) [Mass fraction] 96 % Teri Yasmani DIRECTOR OF INCOME TAX.COMPUTER TECHNOLOGY TRAINER Work Phone: [facility] 05-17-2024 13:52-0500 Systolic blood pressure 110 mm[Hg] Teri Yasmani DIRECTOR OF INCOME TAX.COMPUTER TECHNOLOGY TRAINER Work Phone: [facility] 02-15-2024 14:24-0500 Body mass index (BMI) [Ratio] 25.04 kg/m2 Zeny Genaro DIRECTOR OF INCOME TAX.COMPUTER TECHNOLOGY TRAINER Work Phone: [facility] 02-15-2024 14:24-0500 Body weight 86.1 kg Zeny Genaro DIRECTOR OF INCOME TAX.COMPUTER TECHNOLOGY TRAINER Work Phone: [facility] 02-15-2024 14:24-0500 Diastolic blood pressure 80 mm[Hg] Zeny Genaro DIRECTOR OF INCOME TAX.COMPUTER TECHNOLOGY TRAINER Work Phone: [facility] 02-15-2024 14:24-0500 Heart rate 85 /min Zeny Genaro DIRECTOR OF INCOME TAX.COMPUTER TECHNOLOGY TRAINER Work Phone: [facility] 02-15-2024 14:24-0500 SaO2% (BldA) [Mass fraction] 96 % Zeny Genaro DIRECTOR OF INCOME TAX.COMPUTER TECHNOLOGY TRAINER Work Phone: [facility] 02-15-2024 14:24-0500 Systolic blood pressure 110 mm[Hg] Zeny Genaro DIRECTOR OF INCOME TAX.COMPUTER TECHNOLOGY TRAINER Work Phone: [facility] 01-20-2024 13:55-0400 Diastolic blood pressure 70 mm[Hg] Zeny Genaro DIRECTOR OF INCOME TAX.COMPUTER TECHNOLOGY TRAINER Work Phone: [facility] 01-20-2024 13:55-0400 Systolic blood pressure 142 mm[Hg] Zeny Genaro DIRECTOR OF INCOME TAX.COMPUTER TECHNOLOGY TRAINER Work Phone: [facility] 01-20-2024 13:09-0400 Body height 185.4 cm Zeny Genaro DIRECTOR OF INCOME TAX.COMPUTER TECHNOLOGY TRAINER Work Phone: [facility] 01-20-2024 13:09-0400 Body mass index (BMI) [Ratio] 25.01 kg/m2 Zeny Genaro DIRECTOR OF INCOME TAX.COMPUTER TECHNOLOGY TRAINER Work Phone: [facility] 01-20-2024 13:09-0400 Body weight 86 kg Zeny Genaro DIRECTOR OF INCOME TAX.COMPUTER TECHNOLOGY TRAINER Work Phone: [facility] 01-20-2024 13:09-0400 Heart rate 95 /min Zeny Genaro DIRECTOR OF INCOME TAX.COMPUTER TECHNOLOGY TRAINER Work Phone: [facility] 01-20-2024 13:09-0400 Respiratory rate 16 /min Zeny Genaro DIRECTOR OF INCOME TAX.COMPUTER TECHNOLOGY TRAINER Work Phone: [facility] 01-20-2024 13:09-0400 SaO2% (BldA) [Mass fraction] 96 % Zeny Genaro DIRECTOR OF INCOME TAX.COMPUTER TECHNOLOGY TRAINER Work Phone: [facility] 01-06-2024 11:12-0400 Body mass index (BMI) [Ratio] 24.43 kg/m2 Zeny Genaro DIRECTOR OF INCOME TAX.COMPUTER TECHNOLOGY TRAINER Work Phone: [facility] 01-06-2024 11:12-0400 Body weight 84 kg Zeny Genaro DIRECTOR OF INCOME TAX.COMPUTER TECHNOLOGY TRAINER Work Phone: [facility] 01-06-2024 11:12-0400 Diastolic blood pressure 64 mm[Hg] Zeny Genaro DIRECTOR OF INCOME TAX.COMPUTER TECHNOLOGY TRAINER Work Phone: [facility] 01-06-2024 11:12-0400 Heart rate 69 /min Zeny Genaro DIRECTOR OF INCOME TAX.COMPUTER TECHNOLOGY TRAINER Work Phone: [facility] 01-06-2024 11:12-0400 SaO2% (BldA) [Mass fraction] 97 % Zeny Genaro DIRECTOR OF INCOME TAX.COMPUTER TECHNOLOGY TRAINER Work Phone: [facility] 01-06-2024 11:12-0400 Systolic blood pressure 90 mm[Hg] Zeny Genaro DIRECTOR OF INCOME TAX.COMPUTER TECHNOLOGY TRAINER Work Phone: [facility] 12-14-2023 13:40-0400 Diastolic blood pressure 80 mm[Hg] Zeny Genaro DIRECTOR OF INCOME TAX.COMPUTER TECHNOLOGY TRAINER Work Phone: [facility] 12-14-2023 13:40-0400 Systolic blood pressure 120 mm[Hg] Zeny Genaro DIRECTOR OF INCOME TAX.COMPUTER TECHNOLOGY TRAINER Work Phone: [facility] 12-14-2023 13:34-0400 Body mass index (BMI) [Ratio] 23.88 kg/m2 Zeny Genaro DIRECTOR OF INCOME TAX.COMPUTER TECHNOLOGY TRAINER Work Phone: [facility] 12-14-2023 13:34-0400 Body weight 82.1 kg Zeny Genaro DIRECTOR OF INCOME TAX.COMPUTER TECHNOLOGY TRAINER Work Phone: [facility] 12-14-2023 13:34-0400 Heart rate 89 /min Zeny Genaro DIRECTOR OF INCOME TAX.COMPUTER TECHNOLOGY TRAINER Work Phone: [facility] 12-14-2023 13:34-0400 SaO2% (BldA) [Mass fraction] 98 % Zeny Lam APRN.COMPUTER TECHNOLOGY TRAINER Work Phone: [facility] 11-16-2023 13:17-0400 Body height 185.4 cm Micah Portillo APRN.COMPUTER TECHNOLOGY TRAINER, DNP Work Phone: [facility] 11-16-2023 13:17-0400 Body mass index (BMI) [Ratio] 24.14 kg/m2 Micah Portillo APRN.COMPUTER TECHNOLOGY TRAINER, DNP Work Phone: [facility] 11-16-2023 13:17-0400 Body temperature 97.5 [degF] Micah Portillo APRN.COMPUTER TECHNOLOGY TRAINER, DNP Work Phone: [facility] 11-16-2023 13:17-0400 Body weight 83.01 kg Micah Portillo APRN.COMPUTER TECHNOLOGY TRAINER, DNP Work Phone: [facility] 11-16-2023 13:17-0400 Diastolic blood pressure 78 mm[Hg] Micah Portillo APRN.[facility], DNP Work Phone: [facility] 11-16-2023 13:17-0400 Heart rate 94 /min Micah Portillo APRN.[facility], DNP Work Phone: [facility] 11-16-2023 13:17-0400 Respiratory rate 18 /min Micah Portillo APRN.COMPUTER TECHNOLOGY TRAINER, DNP Work Phone: [facility] 11-16-2023 13:17-0400 SaO2% (BldA) [Mass fraction] 98 % Micah Portillo APRN.COMPUTER TECHNOLOGY TRAINER, DNP Work Phone: [facility] 11-16-2023 13:17-0400 Systolic blood pressure 110 mm[Hg] Micah Portillo APRN.COMPUTER TECHNOLOGY TRAINER, DNP Work Phone: [facility] 09-15-2023 12:54-0400 Diastolic blood pressure 60 mm[Hg] Zeny Lam APRN.COMPUTER TECHNOLOGY TRAINER Work Phone: [facility] 09-15-2023 12:54-0400 Systolic blood pressure 110 mm[Hg] Zeny Genaro DIRECTOR OF INCOME TAX.COMPUTER TECHNOLOGY TRAINER Work Phone: [facility] 09-15-2023 12:51-0400 Body height 185.4 cm Zeny Genaro DIRECTOR OF INCOME TAX.COMPUTER TECHNOLOGY TRAINER Work Phone: [facility] 09-15-2023 12:51-0400 Body mass index (BMI) [Ratio] 22.96 kg/m2 Zeny Genaro DIRECTOR OF INCOME TAX.COMPUTER TECHNOLOGY TRAINER Work Phone: [facility] 09-15-2023 12:51-0400 Body weight 78.93 kg Zeny Genaro DIRECTOR OF INCOME TAX.COMPUTER TECHNOLOGY TRAINER Work Phone: [facility] 09-15-2023 12:51-0400 Heart rate 89 /min Zeny Genaro DIRECTOR OF INCOME TAX.COMPUTER TECHNOLOGY TRAINER Work Phone: [facility] 09-15-2023 12:51-0400 SaO2% (BldA) [Mass fraction] 97 % Zeny Genaro DIRECTOR OF INCOME TAX.COMPUTER TECHNOLOGY TRAINER Work Phone: [facility] 08-27-2023 13:36-0400 Body height 185.4 cm Irene Moraes MD Work Phone: [facility] 08-27-2023 13:36-0400 Body mass index (BMI) [Ratio] 22.22 kg/m2 Irene Moraes MD Work Phone: [facility] 08-27-2023 13:36-0400 Body weight 76.4 kg Irene Moraes MD Work Phone: [facility] 08-27-2023 13:36-0400 Diastolic blood pressure 81 mm[Hg] Irene Moraes MD Work Phone: [facility] 08-27-2023 13:36-0400 Heart rate 101 /min Irene Moraes MD Work Phone: [facility] 08-27-2023 13:36-0400 Systolic blood pressure 119 mm[Hg] Irene Moraes MD Work Phone: [facility] 08-25-2023 09:30-0400 Body mass index (BMI) [Ratio] 22.03 kg/m2 Zeny Genaro DIRECTOR OF INCOME TAX.COMPUTER TECHNOLOGY TRAINER Work Phone: [facility] 08-25-2023 09:30-0400 Body weight 75.75 kg Zeny Genaro DIRECTOR OF INCOME TAX.COMPUTER TECHNOLOGY TRAINER Work Phone: [facility] 08-25-2023 09:30-0400 Diastolic blood pressure 52 mm[Hg] Zeny Genaro DIRECTOR OF INCOME TAX.COMPUTER TECHNOLOGY TRAINER Work Phone: [facility] 08-25-2023 09:30-0400 Heart rate 98 /min Zeny Genaro DIRECTOR OF INCOME TAX.COMPUTER TECHNOLOGY TRAINER Work Phone: [facility] 08-25-2023 09:30-0400 SaO2% (BldA) [Mass fraction] 97 % Zeny Genaro DIRECTOR OF INCOME TAX.COMPUTER TECHNOLOGY TRAINER Work Phone: [facility] 08-25-2023 09:30-0400 Systolic blood pressure 88 mm[Hg] Zeny Genaro DIRECTOR OF INCOME TAX.COMPUTER TECHNOLOGY TRAINER Work Phone: [facility] 08-10-2023 12:54-0400 Body height 185.4 cm Micah Portillo APRN.COMPUTER TECHNOLOGY TRAINER, DNP Work Phone: [facility] 08-10-2023 12:54-0400 Body mass index (BMI) [Ratio] 22.56 kg/m2 Micah Portillo APRN.[facility], DNP Work Phone: [facility] 08-10-2023 12:54-0400 Body weight 77.56 kg Micah Portillo APRN.[facility], DNP Work Phone: [facility] 08-10-2023 12:54-0400 Diastolic blood pressure 65 mm[Hg] Micah Portillo APRN.COMPUTER TECHNOLOGY TRAINER, DNP Work Phone: [facility] 08-10-2023 12:54-0400 Heart rate 63 /min Micah Portillo APRN.COMPUTER TECHNOLOGY TRAINER, DNP Work Phone: [facility] 08-10-2023 12:54-0400 Respiratory rate 16 /min Micah Portillo APRN.COMPUTER TECHNOLOGY TRAINER, DNP Work Phone: [facility] 08-10-2023 12:54-0400 Systolic blood pressure 117 mm[Hg] Micah Portillo APRN.COMPUTER TECHNOLOGY TRAINER, DNP Work Phone: [facility] 07-27-2023 13:03-0400 Body mass index (BMI) [Ratio] 22.3 kg/m2 Zeny Genaro DIRECTOR OF INCOME TAX.COMPUTER TECHNOLOGY TRAINER Work Phone: [facility] 07-27-2023 13:03-0400 Body weight 76.66 kg Zeny Genaro DIRECTOR OF INCOME TAX.COMPUTER TECHNOLOGY TRAINER Work Phone: [facility] 07-27-2023 13:03-0400 Diastolic blood pressure 60 mm[Hg] Zeny Genaro DIRECTOR OF INCOME TAX.COMPUTER TECHNOLOGY TRAINER Work Phone: [facility] 07-27-2023 13:03-0400 Heart rate 65 /min Zeny Genaro DIRECTOR OF INCOME TAX.COMPUTER TECHNOLOGY TRAINER Work Phone: [facility] 07-27-2023 13:03-0400 SaO2% (BldA) [Mass fraction] 96 % Zeny Genaro DIRECTOR OF INCOME TAX.COMPUTER TECHNOLOGY TRAINER Work Phone: [facility] 07-27-2023 13:03-0400 Systolic blood pressure 114 mm[Hg] Zeny Genaro DIRECTOR OF INCOME TAX.COMPUTER TECHNOLOGY TRAINER Work Phone: [facility] 07-21-2023 10:39-0400 Diastolic blood pressure 70 mm[Hg] Edgar Loaiza DO Work Phone: [facility] 07-21-2023 10:39-0400 Heart rate 73 /min Edgar Loaiaz DO Work Phone: [facility] 07-21-2023 10:39-0400 SaO2% (BldA) [Mass fraction] 96 % Edgar Loaiza DO Work Phone: [facility] 07-21-2023 10:39-0400 Systolic blood pressure 123 mm[Hg] Edgar Loaiza DO Work Phone: [facility] 07-18-2023 09:02-0400 Body height 185.4 cm Franc Hills MD Work Phone: [facility] 07-18-2023 09:02-0400 Body temperature 98.4 [degF] Franc Hills MD Work Phone: [facility] 07-18-2023 09:02-0400 Body weight 72.12 kg Franc Hills MD Work Phone: [facility] 07-18-2023 09:02-0400 Diastolic blood pressure 50 mm[Hg] Franc Hills MD Work Phone: [facility] 07-18-2023 09:02-0400 Heart rate 62 /min Franc Hills MD Work Phone: [facility] 07-18-2023 09:02-0400 Respiratory rate 12 /min Franc Hills MD Work Phone: [facility] 07-18-2023 09:02-0400 SaO2% (BldA) [Mass fraction] 97 % Franc Hills MD Work Phone: [facility] 07-18-2023 09:02-0400 Systolic blood pressure 114 mm[Hg] Franc Hills MD Work Phone: [facility] 06-29-2023 11:15-0400 Body weight 74.75 kg Zeny Genaro DIRECTOR OF INCOME TAX.COMPUTER TECHNOLOGY TRAINER Work Phone: [facility] 06-29-2023 11:15-0400 Diastolic blood pressure 68 mm[Hg] Zeny Genaro DIRECTOR OF INCOME TAX.COMPUTER TECHNOLOGY TRAINER Work Phone: [facility] 06-29-2023 11:15-0400 Heart rate 70 /min Zeny Genaro DIRECTOR OF INCOME TAX.COMPUTER TECHNOLOGY TRAINER Work Phone: [facility] 06-29-2023 11:15-0400 Respiratory rate 16 /min Zeny Genaro DIRECTOR OF INCOME TAX.COMPUTER TECHNOLOGY TRAINER Work Phone: [facility] 06-29-2023 11:15-0400 SaO2% (BldA) [Mass fraction] 97 % Zeny Genaro DIRECTOR OF INCOME TAX.COMPUTER TECHNOLOGY TRAINER Work Phone: [facility] 06-29-2023 11:15-0400 Systolic blood pressure 124 mm[Hg] Zeny Genaro DIRECTOR OF INCOME TAX.COMPUTER TECHNOLOGY TRAINER Work Phone: [facility] 06-15-2023 13:01-0400 Body weight 75.3 kg Sunny Mercedes MD Work Phone: [facility] 06-15-2023 13:01-0400 Diastolic blood pressure 52 mm[Hg] Sunny Mercedes MD Work Phone: [facility] 06-15-2023 13:01-0400 Heart rate 64 /min Sunny Mercedes MD Work Phone: [facility] 06-15-2023 13:01-0400 SaO2% (BldA) [Mass fraction] 98 % Sunny Mercedes MD Work Phone: [facility] 06-15-2023 13:01-0400 Systolic blood pressure 84 mm[Hg] Sunny Mercedes MD Work Phone: [facility] 05-26-2023 10:25-0500 Diastolic blood pressure 78 mm[Hg] Edgar Loaiza DO Work Phone: [facility] 05-26-2023 10:25-0500 Heart rate 85 /min Edgar Loaiza DO Work Phone: [facility] 05-26-2023 10:25-0500 SaO2% (BldA) [Mass fraction] 97 % Edgar Loaiza DO Work Phone: [facility] 05-26-2023 10:25-0500 Systolic blood pressure 124 mm[Hg] Edgar Loaiza DO Work Phone: [facility] 05-18-2023 13:58-0500 Body weight 75.75 kg Zeny Genaro DIRECTOR OF INCOME TAX.COMPUTER TECHNOLOGY TRAINER Work Phone: [facility] 05-18-2023 13:58-0500 Diastolic blood pressure 72 mm[Hg] Zeny Genaro DIRECTOR OF INCOME TAX.COMPUTER TECHNOLOGY TRAINER Work Phone: [facility] 05-18-2023 13:58-0500 Heart rate 86 /min Zeny Genaro DIRECTOR OF INCOME TAX.COMPUTER TECHNOLOGY TRAINER Work Phone: [facility] 05-18-2023 13:58-0500 Respiratory rate 16 /min Zeny Genaro DIRECTOR OF INCOME TAX.COMPUTER TECHNOLOGY TRAINER Work Phone: [facility] 05-18-2023 13:58-0500 Systolic blood pressure 128 mm[Hg] Zeny Genaro DIRECTOR OF INCOME TAX.COMPUTER TECHNOLOGY TRAINER Work Phone: [facility] 01-23-2023 14:13-0400 Body weight 77.11 kg Zeny Genaro DIRECTOR OF INCOME TAX.COMPUTER TECHNOLOGY TRAINER Work Phone: [facility] 01-23-2023 14:13-0400 Diastolic blood pressure 60 mm[Hg] Zeny Genaro DIRECTOR OF INCOME TAX.COMPUTER TECHNOLOGY TRAINER Work Phone: [facility] 01-23-2023 14:13-0400 Heart rate 75 /min Zeny Genaro DIRECTOR OF INCOME TAX.COMPUTER TECHNOLOGY TRAINER Work Phone: [facility] 01-23-2023 14:13-0400 SaO2% (BldA) [Mass fraction] 97 % Zeny Genaro DIRECTOR OF INCOME TAX.COMPUTER TECHNOLOGY TRAINER Work Phone: [facility] 01-23-2023 14:13-0400 Systolic blood pressure 100 mm[Hg] Zeny Genaro DIRECTOR OF INCOME TAX.COMPUTER TECHNOLOGY TRAINER Work Phone: [facility] 01-19-2023 12:58-0400 Body weight 79.83 kg Mckinley Leal MD Work Phone: [facility] 01-19-2023 12:58-0400 Heart rate 69 /min Mckinley Leal MD Work Phone: [facility] 01-19-2023 12:58-0400 SaO2% (BldA) [Mass fraction] 96 % Mckinley Leal MD Work Phone: [facility] 12-29-2022 14:52-0400 Body weight 77.11 kg Zeny Genaro DIRECTOR OF INCOME TAX.COMPUTER TECHNOLOGY TRAINER Work Phone: [facility] 12-29-2022 14:52-0400 Diastolic blood pressure 60 mm[Hg] Zeny Genaro DIRECTOR OF INCOME TAX.COMPUTER TECHNOLOGY TRAINER Work Phone: [facility] 12-29-2022 14:52-0400 Heart rate 93 /min Zeny Genaro DIRECTOR OF INCOME TAX.COMPUTER TECHNOLOGY TRAINER Work Phone: [facility] 12-29-2022 14:52-0400 SaO2% (BldA) [Mass fraction] 96 % Zeny Lam DIRECTOR OF INCOME TAX.COMPUTER TECHNOLOGY TRAINER Work Phone: [facility] 12-29-2022 14:52-0400 Systolic blood pressure 98 mm[Hg] Zeny Lam DIRECTOR OF INCOME TAX.COMPUTER TECHNOLOGY TRAINER Work Phone: [facility] 11-24-2022 17:15-0400 Body weight 79.06 kg Franc Hills MD Work Phone: [facility] 11-24-2022 17:15-0400 Diastolic blood pressure 84 mm[Hg] Franc Hills MD Work Phone: [facility] 11-24-2022 17:15-0400 Heart rate 72 /min Franc Hills MD Work Phone: [facility] 11-24-2022 17:15-0400 Systolic blood pressure 128 mm[Hg] Franc Hills MD Work Phone: [facility] 11-10-2022 14:31-0400 Body height 185.4 cm Salas Johns MD Work Phone: [facility] 11-10-2022 14:31-0400 Body weight 80.47 kg Salas Johns MD Work Phone: [facility] 11-10-2022 14:31-0400 Diastolic blood pressure 73 mm[Hg] Salas Johns MD Work Phone: [facility] 11-10-2022 14:31-0400 Heart rate 72 /min Salas Johns MD Work Phone: [facility] 11-10-2022 14:31-0400 SaO2% (BldA) [Mass fraction] 97 % Salas Johns MD Work Phone: [facility] 11-10-2022 14:31-0400 Systolic blood pressure 132 mm[Hg] Salas Johns MD Work Phone: [facility] 08-11-2022 15:01-0400 Body weight 81.19 kg Franc Hills MD Work Phone: [facility] 08-11-2022 15:01-0400 Diastolic blood pressure 72 mm[Hg] Franc Hills MD Work Phone: [facility] 08-11-2022 15:01-0400 Heart rate 80 /min Franc Hills MD Work Phone: [facility] 08-11-2022 15:01-0400 Respiratory rate 16 /min Franc Hills MD Work Phone: [facility] 08-11-2022 15:01-0400 Systolic blood pressure 118 mm[Hg] Franc Hills MD Work Phone: [facility] 06-02-2022 16:47-0500 Diastolic blood pressure 78 mm[Hg] Franc Hills MD Work Phone: [facility] 06-02-2022 16:47-0500 Heart rate 61 /min Franc Hills MD Work Phone: [facility] 06-02-2022 16:47-0500 Systolic blood pressure 147 mm[Hg] Franc Hills MD Work Phone: [facility] 06-02-2022 16:35-0500 Body height 182.9 cm Franc Hills MD Work Phone: [facility] 06-02-2022 16:35-0500 Body temperature 96.91 [degF] Franc Hills MD Work Phone: [facility] 06-02-2022 16:35-0500 Body weight 83.92 kg Franc Hills MD Work Phone: [facility] 06-02-2022 16:35-0500 Respiratory rate 20 /min Franc Hills MD Work Phone: [facility] 03-24-2022 14:36-0500 Diastolic blood pressure 52 mm[Hg] [facility] Work Phone: 03-24-2022 14:36-0500 Heart rate 71 /min [facility] Work Phone: 03-24-2022 14:36-0500 Respiratory rate 18 /min [facility] Work Phone: 03-24-2022 14:36-0500 SaO2% (BldA) [Mass fraction] 100 % [facility] Work Phone: 03-24-2022 14:36-0500 Systolic blood pressure 87 mm[Hg] [facility] [facility] Work Phone: 03-24-2022 13:45-0500 Body temperature 97 [degF] [facility] Work Phone: 03-24-2022 11:19-0500 Body height 185.[address] [facility] Work Phone: 03-24-2022 11:19-0500 Body mass index (BMI) [Ratio] 22.9 kg/m2 [facility] Work Phone: 03-24-2022 11:19-0500 Body weight [address] [facility] Work Phone: 02-03-2022 12:59-0400 Body weight 83.01 kg Bonnie Sharif DIRECTOR OF INCOME TAX.COMPUTER TECHNICAL SPECIALIST Work Phone: [facility] 02-03-2022 12:59-0400 Diastolic blood pressure 74 mm[Hg] Bonnie Sharif DIRECTOR OF INCOME TAX.COMPUTER TECHNICAL SPECIALIST Work Phone: [facility] 02-03-2022 12:59-0400 Respiratory rate 16 /min Bonnie Sharif DIRECTOR OF INCOME TAX.COMPUTER TECHNICAL SPECIALIST Work Phone: [facility] 02-03-2022 12:59-0400 Systolic blood pressure 126 mm[Hg] Bonnie Sharif DIRECTOR OF INCOME TAX.COMPUTER TECHNICAL SPECIALIST Work Phone: [facility] 11-13-2021 15:06-0400 Diastolic blood pressure 54 mm[Hg] Franc Hills MD Work Phone: [facility] 11-13-2021 15:06-0400 Systolic blood pressure 104 mm[Hg] Franc Hills MD Work Phone: [facility] 11-13-2021 14:31-0400 Body temperature 97.2 [degF] Franc Hills MD Work Phone: [facility] 11-13-2021 14:31-0400 Body weight 81.19 kg Franc Hills MD Work Phone: [facility] 11-13-2021 14:31-0400 Heart rate 60 /min Franc Hills MD Work Phone: [facility] 11-13-2021 14:31-0400 Respiratory rate 16 /min Franc Hills MD Work Phone: [facility] 11-12-2021 13:10-0400 Body height 185.4 cm Micah Rosenberg MD Work Phone: [facility] 11-12-2021 13:10-0400 Body temperature 97.9 [degF] Micah Rosenberg MD Work Phone: [facility] 11-12-2021 13:10-0400 Body weight 82.1 kg Micah Rosenberg MD Work Phone: [facility] 11-12-2021 13:10-0400 Diastolic blood pressure 80 mm[Hg] Micah Rosenberg MD Work Phone: [facility] 11-12-2021 13:10-0400 Heart rate 71 /min Micah Rosenberg MD Work Phone: [facility] 11-12-2021 13:10-0400 SaO2% (BldA) [Mass fraction] 99 % Micah Rosenberg MD Work Phone: [facility] 11-12-2021 13:10-0400 Systolic blood pressure 134 mm[Hg] Micah Rosenberg MD Work Phone: [facility] 10-16-2021 15:41-0400 Diastolic blood pressure 78 mm[Hg] Franc Hills MD Work Phone: [facility] 10-16-2021 15:41-0400 Heart rate 66 /min Franc Hills MD Work Phone: [facility] 10-16-2021 15:41-0400 Systolic blood pressure 139 mm[Hg] Franc Hills MD Work Phone: [facility] 10-16-2021 15:29-0400 Body temperature 97 [degF] Franc Hills MD Work Phone: [facility] 10-16-2021 15:29-0400 Body weight 80.65 kg Franc Hills MD Work Phone: [facility] 10-16-2021 15:29-0400 Respiratory rate 20 /min Franc Hills MD Work Phone: [facility] 09-28-2021 16:13-0400 Diastolic blood pressure 76 mm[Hg] [facility] Work Phone: 09-28-2021 16:13-0400 Heart rate 81 /min [facility] Work Phone: 09-28-2021 16:13-0400 Respiratory rate 16 /min [facility] Work Phone: 09-28-2021 16:13-0400 SaO2% (BldA) [Mass fraction] 97 % [facility] Work Phone: 09-28-2021 16:13-0400 Systolic blood pressure 124 mm[Hg] [facility] Work Phone: 09-28-2021 13:22-0400 Body height 185.[address] [facility] Work Phone: 09-28-2021 13:22-0400 Body mass index (BMI) [Ratio] 48.5 kg/m2 [facility] Work Phone: 09-28-2021 13:22-0400 Body temperature 97.4 [degF] [facility] Work Phone: 09-28-2021 13:22-0400 Body weight [address] [facility] Work Phone: 09-23-2021 09:13-0400 Body weight 81.65 kg Teri Yasmani DIRECTOR OF INCOME TAX.COMPUTER TECHNOLOGY TRAINER Work Phone: [facility] 09-23-2021 09:13-0400 Diastolic blood pressure 78 mm[Hg] Teri Yasmani DIRECTOR OF INCOME TAX.COMPUTER TECHNOLOGY TRAINER Work Phone: [facility] 09-23-2021 09:13-0400 Heart rate 64 /min Teri Yasmani DIRECTOR OF INCOME TAX.COMPUTER TECHNOLOGY TRAINER Work Phone: [facility] 09-23-2021 09:13-0400 Respiratory rate 16 /min Teri Yasmani DIRECTOR OF INCOME TAX.COMPUTER TECHNOLOGY TRAINER Work Phone: [facility] 09-23-2021 09:13-0400 SaO2% (BldA) [Mass fraction] 98 % Teri Yasmani DIRECTOR OF INCOME TAX.COMPUTER TECHNOLOGY TRAINER Work Phone: [facility] 09-23-2021 09:13-0400 Systolic blood pressure 132 mm[Hg] Teri Yasmani DIRECTOR OF INCOME TAX.COMPUTER TECHNOLOGY TRAINER Work Phone: [facility] 08-22-2021 18:14-0400 Diastolic blood pressure 77 mm[Hg] Franc Hills MD Work Phone: [facility] 08-22-2021 18:14-0400 Heart rate 65 /min Franc Hills MD Work Phone: [facility] 08-22-2021 18:14-0400 Systolic blood pressure 150 mm[Hg] Franc Hills MD Work Phone: [facility] 08-22-2021 17:45-0400 Body temperature 97.81 [degF] Franc Hills MD Work Phone: [facility] 08-22-2021 17:45-0400 Body weight 81.19 kg Franc Hills MD Work Phone: [facility] 08-22-2021 17:45-0400 Respiratory rate 16 /min Franc Hills MD Work Phone: [facility] 08-22-2021 17:45-0400 SaO2% (BldA) [Mass fraction] 96 % Franc Hills MD Work Phone: [facility] 08-16-2021 13:17-0400 Body height 185.4 cm Mj Dos Santos MD Work Phone: [facility] 08-16-2021 13:17-0400 Body weight 81.19 kg jM Dos Santos MD Work Phone: [facility] 08-16-2021 13:17-0400 Diastolic blood pressure 73 mm[Hg] Mj Dos Santos MD Work Phone: [facility] 08-16-2021 13:17-0400 Heart rate 63 /min Mj Dos Santos MD Work Phone: [facility] 08-16-2021 13:17-0400 SaO2% (BldA) [Mass fraction] 97 % Mj Dos Santos MD Work Phone: [facility] 08-16-2021 13:17-0400 Systolic blood pressure 141 mm[Hg] Mj Dos Santos MD Work Phone: [facility] 07-03-2021 12:44-0400 Body weight 83.46 kg Sara Older DIRECTOR OF INCOME TAX.COMPUTER TECHNOLOGY TRAINER Work Phone: [facility] 07-03-2021 12:44-0400 Diastolic blood pressure 62 mm[Hg] Sara Older DIRECTOR OF INCOME TAX.COMPUTER TECHNOLOGY TRAINER Work Phone: [facility] 07-03-2021 12:44-0400 Heart rate 66 /min Sara Older DIRECTOR OF INCOME TAX.COMPUTER TECHNOLOGY TRAINER Work Phone: [facility] 07-03-2021 12:44-0400 Respiratory rate 16 /min Sara Older DIRECTOR OF INCOME TAX.COMPUTER TECHNOLOGY TRAINER Work Phone: [facility] 07-03-2021 12:44-0400 SaO2% (BldA) [Mass fraction] 97 % Sara Older DIRECTOR OF INCOME TAX.COMPUTER TECHNOLOGY TRAINER Work Phone: [facility] 07-03-2021 12:44-0400 Systolic blood pressure 112 mm[Hg] Sarashannon Baxter APRN.COMPUTER TECHNOLOGY TRAINER Work Phone: [facility] Encounters Encounter Date Encounter Type Care Provider Facility Start: 11-19-2024 End: 11-20-2024 Emergency department patient visit Dr. 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; IFG (impaired fasting glucose); Primary hypertension; Vitamin D deficiency; Insomnia, unspecified type Start: 11-15-2024 End: 11-15-2024 ambulatory ZENY LAM Facility:[facility] Start: 11-09-2024 End: 11-09-2024 ambulatory ZENY [place] Facility:[facility] Start: 10-28-2024 End: 10-28-2024 Telephone encounter Zeny Lam APRN.COMPUTER TECHNOLOGY TRAINER Work Phone: [facility] [place] Comment on above: Anticoagulation Start: 10-28-2024 End: 10-28-2024 ambulatory ZENY LAM Facility:[facility] Start: 10-26-2024 End: 10-26-2024 Telephone encounter Shruti Carrington APRN.COMPUTER TECHNOLOGY TRAINER Work Phone: Pulmonary Medicine Comment on above: Patient Update; Than k you Start: 10-25-2024 End: 10-26-2024 Telephone encounter Zeny Lam APRN.COMPUTER TECHNOLOGY TRAINER Work Phone: [facility] [place] Comment on above: Medication Question; bp reading Start: 10-22-2024 End: 10-24-2024 ambulatory Mirlande Funez MD Work Phone: Pulmonary Medicine Comment on above: Chest X-ray Start: 10-21-2024 End: 10-24-2024 ambulatory [facility] Provider [facility] [place] Comment on above: Covid shot Start: 10-20-2024 End: 10-20-2024 ambulatory MIRLANDE FUNEZ Facility:[facility] Start: 10-20-2024 End: 10-20-2024 Subsequent hospital visit by physician Mala [facility] [place] Work Phone: Radiology Comment on above: SOB (shortness of br eath) [R06.02] Start: 10-20-2024 End: 10-20-2024 Patient encounter procedure Mirlande Funez MD Work Phone: Pulmonary Medicine Comment on above: SOB (shortness of br eath) (Primary Dx); Mild persistent asthma without complication (HCC); History of pulmonary embolism Start: 10-20-2024 End: 10-20-2024 ambulatory ZENY LAM Facility:[facility] Start: 10-17-2024 End: 10-18-2024 Telephone encounter Zeny Lam APRN.COMPUTER TECHNOLOGY TRAINER Work Phone: [facility] [place] Comment on above: Medication Question Start: 10-14-2024 End: 10-14-2024 Telephone encounter Zeny Lam APRN.COMPUTER TECHNOLOGY TRAINER Work Phone: [facility] [place] Comment on above: Anticoagulation Start: 10-14-2024 End: 10-14-2024 ambulatory ZENY LAM Facility:[facility] Start: 10-10-2024 End: 10-11-2024 Telephone encounter Zeny Lam APRN.COMPUTER TECHNOLOGY TRAINER Work Phone: [facility] [place] Comment on above: Patient Update Start: 10-09-2024 End: 10-10-2024 ambulatory [facility] Provider [facility] [place] Comment on above: Olmesartan Nifedipine Start: 10-05-2024 End: 10-05-2024 Telephone encounter Zeny Lam APRN.COMPUTER TECHNOLOGY TRAINER Work Phone: [facility] [place] Comment on [...] 09-21-2024 End: 09-23-2024 Telephone encounter Zeny Lam DIRECTOR OF INCOME TAX.COMPUTER TECHNOLOGY TRAINER Work Phone: [facility] [place] Comment on above: Anticoagulation Start: 09-21-2024 End: 09-21-2024 ambulatory [facility] Facility:[facility] Start: 09-14-2024 End: 09-19-2024 Telephone encounter Mirlande Funez MD Work Phone: Pulmonary Medicine Comment on above: Patient Question Orders Start: 09-12-2024 End: 09-12-2024 Telephone encounter Zeny Lam DIRECTOR OF INCOME TAX.COMPUTER TECHNOLOGY TRAINER Work Phone: [facility] [place] Comment on above: Patient Question Start: 09-08-2024 End: 09-09-2024 Refill Zeny Lam DIRECTOR OF INCOME TAX.COMPUTER TECHNOLOGY TRAINER Work Phone: [facility] [place] Comment on above: Refill Request Change Pharmacy Start: 09-07-2024 End: 09-07-2024 Telephone encounter Zeny Lam DIRECTOR OF INCOME TAX.COMPUTER TECHNOLOGY TRAINER Work Phone: [facility] [place] Comment on above: Anticoagulation Start: 09-07-2024 End: 09-07-2024 [facility] Facility:[facility] Start: 09-05-2024 End: 09-06-2024 Refill Bonnie Sharif DIRECTOR OF INCOME TAX.COMPUTER TECHNICAL SPECIALIST Work Phone: [facility] [place] Comment on above: Refill Request Start: 08-24-2024 End: 08-24-2024 [facility] Facility:[facility] Start: 08-21-2024 End: 08-22-2024 ambulatory [facility] Provider [facility] [place] Comment on above: Nasacort Start: 08-19-2024 End: 08-22-2024 Telephone encounter Zeny Lam DIRECTOR OF INCOME TAX.COMPUTER TECHNOLOGY TRAINER Work Phone: [facility] [place] Comment on above: Patient Question Start: 08-15-2024 End: 08-15-2024 ambulatory [facility] Facility:[facility] Start: 08-15-2024 End: 08-15-2024 Patient encounter procedure Zeny Lam APRN.COMPUTER TECHNOLOGY TRAINER Work Phone: [facility] [place] Comment on above: Medicare annual well ness [...] Zeny Lam APRN.CNP Work Phone: [facility] [place] Start: 08-10-2024 End: 08-10-2024 Telephone encounter Zeny Lam APRN.COMPUTER TECHNOLOGY TRAINER Work Phone: [facility] [place] Comment on above: Anticoagulation Start: 08-10-2024 End: 08-10-2024 ambulatory ZENY LAM Facility:[facility] Start: 08-09-2024 End: 08-09-2024 Patient encounter procedure Walt [facility] Comment on above: Chronic low back sharon n without sciatica, unspecified back pain laterality (Primary Dx) Start: 08-09-2024 End: 08-09-2024 ambulatory WALT YANG Facility:[facility] Start: 08-08-2024 End: 08-08-2024 Patient encounter procedure Sunny Mercedes MD Work Phone: Cardiology Comment on above: PAD (peripheral bart ry disease) (Primary Dx); Bilateral carotid artery stenosis; Primary hypertension; Mixed hyperlipidemia; History of left-sided carotid endarterectomy; Recurrent pulmonary embolism (HCC) Start: 08-08-2024 End: 08-08-2024 ambulatory SUNNY MERCEDES Facility:[facility] Start: 08-06-2024 End: 08-06-2024 ambulatory Tonie Mai RN NURSE [employer]UD [employer]LLER Comment on above: Patient Update Start: 08-05-2024 End: 08-05-2024 ambulatory [facility] [place] Comment on above: Test today Start: 08-04-2024 End: 08-04-2024 Patient encounter procedure [facility] Work Phone: [facility] Start: 08-04-2024 End: 08-08-2024 ambulatory [facility] Work Phone: [facility] Comment on above: Spirometry Pulmonary Function T est Start: 07-28-2024 End: 07-28-2024 ambulatory GAYLE GREEN Facility:[facility] Start: 07-27-2024 End: 07-27-2024 Telephone encounter Zeny Lam APRN.CNP Work Phone: [facility] [place] Comment on above: Anticoagulation Start: 07-27-2024 End: 07-27-2024 ambulatory ZENY LAM Facility:[facility] Start: 07-26-2024 End: 07-26-2024 Patient encounter procedure Walt Yang [facility] Comment on above: Chronic low back sharon n without sciatica, unspecified back pain laterality (Primary Dx) Start: 07-26-2024 End: 07-26-2024 ambulatory WALT YANG [facility] Start: 07-25-2024 End: 07-25-2024 Patient encounter procedure Zeny Lam APRN.COMPUTER TECHNOLOGY TRAINER Work Phone: [facility] [place] Comment on above: Shortness of breath (Primary Dx); Primary hypertension; Recurrent pulmonary embolism (HCC); Chronic low back pain without sciatica, unspecified back pain laterality; Neck pain Start: 07-25-2024 End: 07-25-2024 ambulatory ZENY LAM Facility:[facility] Start: 07-19-2024 End: 09-18-2024 Follow-up encounter Teri [...] Start: 07-18-2024 End: 07-18-2024 ambulatory ZENY LAM Facility:[facility] Start: 07-18-2024 End: 07-18-2024 ambulatory [facility] Facility:[facility] Start: 07-18-2024 End: 07-18-2024 Subsequent hospital visit by physician [facility] Work Phone: Nuclear Medicine Comment on above: Shortness of breath [R06.02] Start: 07-13-2024 End: 07-13-2024 Follow-up encounter Gabby Rm LPN [facility] [place] Comment on above: Opened In Error Start: 07-13-2024 End: 07-13-2024 Telephone encounter Zeny Lam APRN.COMPUTER TECHNOLOGY TRAINER Work Phone: [facility] [place] Comment on above: Anticoagulation Start: 07-13-2024 End: 07-13-2024 ambulatory ZENY LAM Facility:[facility] Start: 07-11-2024 End: 07-11-2024 ambulatory Nurse [facility] Work Phone: Cardiology Comment on above: Stress Test Instruct ions for 07/18/24 Start: 07-11-2024 End: 07-11-2024 E-mail encounter from caregiver Nurse [facility] Work Phone: Cardiology Start: 07-07-2024 End: 07-22-2024 Telephone encounter Zeny Lam APRN.COMPUTER TECHNOLOGY TRAINER Work Phone: [facility] [place] Comment on above: Patient Update Start: 07-01-2024 End: 07-01-2024 Refill Zeny Lam APRN.COMPUTER TECHNOLOGY TRAINER Work Phone: [facility] [place] Comment on above: Med Change Request Start: 06-29-2024 End: 06-30-2024 Telephone encounter Zeny Lam APRN.COMPUTER TECHNOLOGY TRAINER Work Phone: [facility] [place] Comment on above: Anticoagulation Start: 06-29-2024 End: 06-29-2024 ambulatory ZENY LAM Facility:[facility] Start: 06-25-2024 End: 06-27-2024 Refill Zeny Lam APRN.COMPUTER TECHNOLOGY TRAINER Work Phone: [facility] [place] Comment on above: Refill Request Start: 06-23-2024 End: 07-01-2024 ambulatory [facility] Provider [facility] [place] Comment on above: Shortness of breath Start: 06-20-2024 End: 06-21-2024 Telephone encounter Zeny Lam APRN.COMPUTER TECHNOLOGY TRAINER Work Phone: [facility] [place] Start: 06-16-2024 End: 08-16-2024 Follow-up encounter Bonnie Sharif APRN.COMPUTER TECHNICAL SPECIALIST Work Phone: [facility] [place] Start: 06-15-2024 End: 06-15-2024 Telephone encounter Zeny Lam APRN.COMPUTER TECHNOLOGY TRAINER Work Phone: [facility] [place] Comment on above: Anticoagulation Start: 06-15-2024 End: 06-15-2024 ambulatory [facility] Provider [facility] [place] Comment on above: Acupuncture Start: 06-10-2024 End: 06-10-2024 ambulatory [facility] Provider [facility] [place] Comment on above: Low pressure causing shortness of breath Start: 06-08-2024 End: 06-08-2024 Refill Gabby Rm LPN [facility] [place] Comment on above: Refill Request Shortness of breath (Primary Dx); Primary hypertension; Chronic low back pain without sciatica, unspecified back pain laterality; Bilateral carotid artery stenosis; Vision abnormalities Start: 06-07-2024 End: 06-08-2024 Refill Arti Baxter APRN.COMPUTER TECHNOLOGY TRAINER Work Phone: [facility] [place] Comment on above: Refill Request Start: 06-06-2024 End: 06-06-2024 Telephone encounter Zeny Lam APRN.COMPUTER TECHNOLOGY TRAINER Work Phone: [facility] [place] Comment on above: Patient Update; Imelda ent Question Start: 06-01-2024 End: 06-02-2024 Telephone encounter Mani Edwards MD Work Phone: [facility] [place] Comment on above: Anticoagulation Start: 06-01-2024 End: 06-01-2024 ambulatory ZENY LAM Facility:[facility] Start: 05-30-2024 End: 06-03-2024 Telephone encounter Zeny Lam APRN.COMPUTER TECHNOLOGY TRAINER Work Phone: [facility] [place] Comment on above: questions regarding testing Start: 05-24-2024 End: 05-24-2024 Patient encounter procedure Edgar Loaiza DO Work Phone: Vascular Surgery Comment on above: PAD (peripheral bart ry disease) (HCC) (Primary Dx); Stenosis of left carotid artery Start: 05-24-2024 End: 05-24-2024 ambulatory EDGAR LOAIZA Facility:[facility] Start: 05-19-2024 End: 05-19-2024 ambulatory GAYLE TESTKARMA Facility:[facility] Start: 05-19-2024 End: 05-19-2024 Patient encounter procedure Gayle Quirozkarma Work Phone: Podiatry Comment on above: Onychomycosis (Prima ry Dx); Pain in toe of left foot; Pain in toe of right foot; PAD (peripheral artery disease) (HCC); Hammer toe, unspecified laterality Start: 05-18-2024 End: 05-18-2024 Telephone encounter Zeny Lam APRN.COMPUTER TECHNOLOGY TRAINER Work Phone: [facility] [place] Comment on above: Anticoagulation Start: 05-18-2024 End: 05-18-2024 ambulatory ZENY LAM Facility:[facility] Start: 05-17-2024 End: 05-17-2024 ambulatory TERI GRUBER Facility:[facility] Start: 05-17-2024 End: 05-17-2024 Office outpatient visit 25 minutes Teri Gruber APRN.COMPUTER TECHNOLOGY TRAINER Work Phone: [facility] [place] Comment on above: Shortness of breath (Primary Dx); Chronic low back pain without sciatica, unspecified back pain laterality; Neck pain Start: 05-11-2024 End: 05-11-2024 Telephone encounter Zeny Lam APRN.COMPUTER TECHNOLOGY TRAINER Work Phone: [facility] [place] Comment on above: vaccine question Start: 05-10-2024 End: 05-10-2024 Telephone encounter Zeny Genaro DIRECTOR OF INCOME TAX.COMPUTER TECHNOLOGY TRAINER Work Phone: [facility] [place] Comment on above: Anticoagulation Start: 05-10-2024 End: 05-10-2024 ambulatory [facility] Facility:[facility] Start: 04-27-2024 End: 04-27-2024 Telephone encounter Zeny Genaro DIRECTOR OF INCOME TAX.COMPUTER TECHNOLOGY TRAINER Work Phone: [facility] [place] Comment on above: Anticoagulation Start: 04-27-2024 End: 04-27-2024 ambulatory [facility] Facility:[facility] Start: 04-12-2024 End: 04-12-2024 Telephone encounter Zeny Genaro DIRECTOR OF INCOME TAX.COMPUTER TECHNOLOGY TRAINER Work Phone: [facility] [place] Comment on above: Anticoagulation Start: 04-12-2024 End: 04-12-2024 [facility] Facility:[facility] Start: 03-25-2024 End: 03-25-2024 Telephone encounter Zeny Genaro DIRECTOR OF INCOME TAX.COMPUTER TECHNOLOGY TRAINER Work Phone: [facility] [place] Comment on above: Patient Question Start: 03-24-2024 End: 03-24-2024 Telephone encounter Zeny Genaro DIRECTOR OF INCOME TAX.COMPUTER TECHNOLOGY TRAINER Work Phone: [facility] [place] Comment on above: Orders Anticoagulation Start: 03-24-2024 End: 03-24-2024 ambulatory ZENY ELIZABETHR Facility:[facility] Start: 03-22-2024 End: 03-25-2024 Telephone encounter Zeny Genaro DIRECTOR OF INCOME TAX.COMPUTER TECHNOLOGY TRAINER Work Phone: [facility] [place] Comment on above: Patient Question Patient Question (di toni gilliam) Start: 03-15-2024 End: 03-16-2024 Refill Zeny Genaro DIRECTOR OF INCOME TAX.COMPUTER TECHNOLOGY TRAINER Work Phone: [facility] [place] Comment on above: Refill Request Start: 03-10-2024 End: 03-11-2024 Telephone encounter Zeny Genaro DIRECTOR OF INCOME TAX.COMPUTER TECHNOLOGY TRAINER Work Phone: [facility] [place] Comment on above: Anticoagulation Start: 03-10-2024 End: 03-10-2024 ambulatory ZENY LAM Facility:[facility] Start: 03-04-2024 End: 03-08-2024 ambulatory Zeny Genaro DIRECTOR OF INCOME TAX.COMPUTER TECHNOLOGY TRAINER Work Phone: [facility] [place] Start: 03-04-2024 End: 03-09-2024 Patient encounter procedure Zeny Genaro DIRECTOR OF INCOME TAX.COMPUTER TECHNOLOGY TRAINER Work Phone: [facility] [place] Comment on above: Update my INR appoin tments for next year. Refill Request Start: 02-29-2024 End: 02-29-2024 ambulatory ZENY LAM Facility:[facility] Start: 02-29-2024 End: 02-29-2024 Subsequent hospital visit by physician Cheli [facility] (I-Stat) Work Phone: Cat Scan Comment on above: Primary hypertension [I10] Start: 02-25-2024 End: 02-25-2024 Telephone encounter Zeny Lam APRN.COMPUTER TECHNOLOGY TRAINER Work Phone: [facility] [place] Comment on above: Anticoagulation Start: 02-25-2024 End: 02-25-2024 [facility] ZENY LAM Facility:[facility] Start: 02-15-2024 End: 02-15-2024 Patient encounter procedure Zeny Elizabethr DIRECTOR OF INCOME TAX.COMPUTER TECHNOLOGY TRAINER Work Phone: [facility] [place] Comment on above: Primary hypertension (Primary Dx); Dizziness; Chronic low back pain without sciatica, unspecified back pain laterality; Neck pain; Recurrent pulmonary embolism (HCC) Start: 02-15-2024 End: 02-15-2024 [facility] ZENY [facility] Facility:[facility] Start: 02-15-2024 End: 02-16-2024 Telephone encounter Zeny Genaro DIRECTOR OF INCOME TAX.COMPUTER TECHNOLOGY TRAINER Work Phone: [facility] [place] Comment on above: Medication Question Start: 02-14-2024 End: 02-15-2024 ambulatory Zeny Elizabethr DIRECTOR OF INCOME TAX.COMPUTER TECHNOLOGY TRAINER Work Phone: [facility] [place] Comment on above: Prescription renewal s. Refill Request Start: 02-09-2024 End: 02-09-2024 Telephone encounter Zeny Lam DIRECTOR OF INCOME TAX.COMPUTER TECHNOLOGY TRAINER Work Phone: [facility] [place] Comment on above: Anticoagulation Start: 02-09-2024 End: 02-09-2024 ambulatory ZENY GENARO Facility:[facility] Start: 02-07-2024 End: 02-08-2024 ambulatory Zeny Genaro DIRECTOR OF INCOME TAX.COMPUTER TECHNOLOGY TRAINER Work Phone: [facility] [place] Comment on above: Neck X-ray results Start: 02-04-2024 End: 02-05-2024 Telephone encounter Zeny Genaro DIRECTOR OF INCOME TAX.COMPUTER TECHNOLOGY TRAINER Work Phone: [facility] [place] Comment on above: Patient Question Start: 02-01-2024 End: 02-01-2024 ambulatory ZENY GENARO Facility:[facility] Start: 02-01-2024 End: 02-01-2024 Subsequent hospital visit by physician Xr [facility] [place] Work Phone: Radiology Comment on above: Neck pain [M54.2] Start: 02-01-2024 End: 02-01-2024 Telephone encounter Zeny Genaro DIRECTOR OF INCOME TAX.COMPUTER TECHNOLOGY TRAINER Work Phone: [facility] [place] Start: 01-30-2024 End: 02-01-2024 ambulatory Zeny Genaro DIRECTOR OF INCOME TAX.COMPUTER TECHNOLOGY TRAINER Work Phone: [facility] [place] Comment on above: Blood pressure the o ther way. Start: 01-29-2024 End: 01-29-2024 ambulatory Zeny Genaro DIRECTOR OF INCOME TAX.COMPUTER TECHNOLOGY TRAINER Work Phone: [facility] [place] Comment on above: Blood pressure Start: 01-29-2024 End: 02-01-2024 Telephone encounter Zeny Genaro DIRECTOR OF INCOME TAX.COMPUTER TECHNOLOGY TRAINER Work Phone: [facility] [place] Comment on above: my chart message con verted to phone note, blood pressure is Start: 01-28-2024 End: 01-29-2024 Telephone encounter Zeny Genaro DIRECTOR OF INCOME TAX.COMPUTER TECHNOLOGY TRAINER Work Phone: [facility] [place] Comment on above: blood pressure eleva tion Start: 01-26-2024 End: 01-26-2024 Telephone encounter Zeny Genaro DIRECTOR OF INCOME TAX.COMPUTER TECHNOLOGY TRAINER Work Phone: [facility] [place] Comment on above: Blood Pressure; Anti coagulation Start: 01-26-2024 End: 01-26-2024 ambulatory ZENY GENARO Facility:[facility] Start: 01-20-2024 End: 01-20-2024 Patient encounter procedure Zeny Genaor DIRECTOR OF INCOME TAX.COMPUTER TECHNOLOGY TRAINER Work Phone: [facility] [place] Comment on above: Primary hypertension (Primary Dx); Compression fracture of L1 vertebra with routine healing, subsequent encounter; Chronic bilateral low back pain with bilateral sciatica; Other fatigue; SOB (shortness of breath) Start: 01-20-2024 End: [facility] Start: 01-12-2024 End: 01-12-2024 Telephone encounter Zeny Genaro DIRECTOR OF INCOME TAX.COMPUTER TECHNOLOGY TRAINER Work Phone: [facility] [place] Comment on above: Anticoagulation Start: 01-12-2024 End: [facility]-12-[facility]24 [facility] Start: 01-11-2024 End: 01-11-2024 Telephone encounter Zeny Genaro DIRECTOR OF INCOME TAX.COMPUTER TECHNOLOGY TRAINER Work Phone: [facility] [place] Comment on above: Patient Update Start: 01-10-2024 End: 01-11-2024 ambulatory Zeny Genaro DIRECTOR OF INCOME TAX.COMPUTER TECHNOLOGY TRAINER Work Phone: [facility] [place] Start: 01-10-2024 End: 01-11-2024 Emergency department patient visit Zeny Genaro DIRECTOR OF INCOME TAX.COMPUTER TECHNOLOGY TRAINER Work Phone: [facility] [place] Comment on above: Emergency room visit Start: 01-08-2024 End: 01-08-2024 Emergency department patient visit [facility] Facility:[facility] Start: 01-06-2024 End: 01-06-2024 Patient encounter procedure Zeny Genaro DIRECTOR OF INCOME TAX.COMPUTER TECHNOLOGY TRAINER Work Phone: [facility] [place] Comment on above: Other fatigue (Prima ry Dx); Side effect of medication; SOB (shortness of breath); Screening for depression Start: 01-06-2024 End: 01-06-2024 [facility] ZENY GENARO Facility:[facility] Start: 01-05-2024 End: 01-05-2024 Telephone encounter Zeny Genaro DIRECTOR OF INCOME TAX.COMPUTER TECHNOLOGY TRAINER Work Phone: [facility] [place] Comment on above: Results Start: 01-05-2024 End: 01-05-2024 ambulatory ZENY GENARO Facility:[facility] Start: 01-02-2024 End: 01-04-2024 ambulatory Zeny Genaro DIRECTOR OF INCOME TAX.COMPUTER TECHNOLOGY TRAINER Work Phone: [facility] [place] Comment on above: Insurance Start: 01-01-2024 End: 01-01-2024 Telephone encounter Zeny Genaro DIRECTOR OF INCOME TAX.COMPUTER TECHNOLOGY TRAINER Work Phone: [facility] [place] Comment on above: Anticoagulation Start: 01-01-2024 End: 01-01-2024 ambulatory ZENY GENARO Facility:[facility] Start: 12-28-2023 End: 12-28-2023 Telephone encounter Zeny Genaro DIRECTOR OF INCOME TAX.COMPUTER TECHNOLOGY TRAINER Work Phone: [facility] [place] Comment on above: Anticoagulation Start: 12-28-2023 End: 12-28-2023 ambulatory ZENY GENARO Facility:[facility] Start: 12-27-2023 End: 12-28-2023 Refill Zeny Genaro DIRECTOR OF INCOME TAX.COMPUTER TECHNOLOGY TRAINER Work Phone: [facility] [place] Comment on above: Refill Request Start: 12-21-2023 End: 12-21-2023 Telephone encounter Zeny Genaro DIRECTOR OF INCOME TAX.COMPUTER TECHNOLOGY TRAINER Work Phone: [facility] [place] Comment on above: Anticoagulation Start: 12-21-2023 End: 12-21-2023 ambulatory ZENY GENARO Facility:[facility] Start: 12-14-2023 End: 12-14-2023 Patient encounter procedure Zeny Genaro DIRECTOR OF INCOME TAX.COMPUTER TECHNOLOGY TRAINER Work Phone: [facility] [place] Comment on above: Primary hypertension (Primary Dx); Pain, dental; Compression fracture of L1 vertebra with routine healing, subsequent encounter; Chronic low back pain without sciatica, unspecified back pain laterality Start: 12-14-2023 End: 12-15-2023 ambulatory Zeny Genaro DIRECTOR OF INCOME TAX.COMPUTER TECHNOLOGY TRAINER Work Phone: [facility] [place] Comment on above: No questions Start: 12-10-2023 End: 12-10-2023 Telephone encounter Zeny Genaro DIRECTOR OF INCOME TAX.COMPUTER TECHNOLOGY TRAINER Work Phone: [facility] [place] Comment on above: Patient Update Start: 12-08-2023 End: 12-08-2023 Refill Zeny Genaro DIRECTOR OF INCOME TAX.COMPUTER TECHNOLOGY TRAINER Work Phone: [facility] [place] Comment on above: Refill Request Anticoagulation Start: 12-02-2023 End: 12-02-2023 Refill Zeny Genaro DIRECTOR OF INCOME TAX.COMPUTER TECHNOLOGY TRAINER Work Phone: [facility] [place] Comment on above: Refill Request Start: 11-24-2023 End: 11-24-2023 Telephone encounter Zeny Genaro DIRECTOR OF INCOME TAX.COMPUTER TECHNOLOGY TRAINER Work Phone: [facility] [place] Comment on above: Results Start: 11-24-2023 End: 11-24-2023 ambulatory ZENY GENARO Facility:[facility] Start: 11-23-2023 End: 11-23-2023 Telephone encounter Zeny Genaro DIRECTOR OF INCOME TAX.COMPUTER TECHNOLOGY TRAINER Work Phone: [facility] [place] Comment on above: Patient Question Start: 11-16-2023 End: 11-16-2023 Patient encounter procedure Micah Portillo APRN.COMPUTER TECHNOLOGY TRAINER, DNP Work Phone: Urology Comment on above: Benign prostatic hyp erplasia with nocturia (Primary Dx); Urgency of urination Start: 11-12-2023 End: 11-12-2023 ambulatory Zeny Genaro DIRECTOR OF INCOME TAX.COMPUTER TECHNOLOGY TRAINER Work Phone: [facility] [place] Start: 11-12-2023 Follow-up encounter Zeny Cleav er DIRECTOR OF INCOME TAX.COMPUTER TECHNOLOGY TRAINER Work Phone: [facility] [place] Comment on above: Follow up out of Net work Acupuncture Schedule Start: 11-12-2023 End: 11-12-2023 Patient encounter procedure Walt [facility] Comment on above: Chronic low back sharon n without sciatica, unspecified back pain laterality (Primary Dx) Start: 11-10-2023 ambulatory Zeny Genaro DIRECTOR OF INCOME TAX.COMPUTER TECHNOLOGY TRAINER Work Phone: [facility] [place] Start: 11-10-2023 Follow-up encounter Zeny Cleav er DIRECTOR OF INCOME TAX.COMPUTER TECHNOLOGY TRAINER Work Phone: [facility] [place] Comment on above: Acupuncture follow u p Start: 11-10-2023 Telephone encounter Zeny Cleav er DIRECTOR OF INCOME TAX.COMPUTER TECHNOLOGY TRAINER Work Phone: [facility] Comment on above: Anticoagulation Start: 10-30-2023 Telephone encounter Zeny Cleav er DIRECTOR OF INCOME TAX.COMPUTER TECHNOLOGY TRAINER Work Phone: [facility] [place] Comment on above: Patient Update (INR) Start: 10-29-2023 Refill Zeny Genaro DIRECTOR OF INCOME TAX.COMPUTER TECHNOLOGY TRAINER Work Phone: [facility] [place] Comment on above: Refill Request Start: 10-23-2023 Telephone encounter Zeny Cleav er DIRECTOR OF INCOME TAX.COMPUTER TECHNOLOGY TRAINER Work Phone: [facility] [place] Comment on above: Anticoagulation Start: 10-06-2023 Refill Zeny Genaro DIRECTOR OF INCOME TAX.COMPUTER TECHNOLOGY TRAINER Work Phone: [facility] [place] Comment on above: Refill Request Start: 10-05-2023 Telephone encounter Zeny Cleav er DIRECTOR OF INCOME TAX.COMPUTER TECHNOLOGY TRAINER Work Phone: [facility] [place] Start: 09-30-2023 Refill Zeny Genaro DIRECTOR OF INCOME TAX.COMPUTER TECHNOLOGY TRAINER Work Phone: [facility] [place] Comment on above: Refill Request Start: 09-25-2023 Telephone encounter Zeny Cleav er DIRECTOR OF INCOME TAX.COMPUTER TECHNOLOGY TRAINER Work Phone: [address] [place] [address] Comment on above: Patient Update Start: 09-24-2023 Telephone encounter Zeny Cleav er DIRECTOR OF INCOME TAX.COMPUTER TECHNOLOGY TRAINER Work Phone: [facility] [place] Comment on above: letter should be com ing to provider Start: 09-23-2023 Telephone encounter Zeny Cleav er DIRECTOR OF INCOME TAX.COMPUTER TECHNOLOGY TRAINER Work Phone: [facility] [place] Comment on above: Anticoagulation Start: 09-15-2023 ambulatory Zeny Genaro DIRECTOR OF INCOME TAX.COMPUTER TECHNOLOGY TRAINER Work Phone: [facility] [place] Start: 09-15-2023 End: 09-15-2023 Patient encounter procedure Zeny Genaro DIRECTOR OF INCOME TAX.COMPUTER TECHNOLOGY TRAINER Work Phone: [facility] [place] Comment on above: Chronic bilateral lo w back pain with bilateral sciatica (Primary Dx); Compression fracture of L1 vertebra with routine healing, subsequent encounter; Mixed hyperlipidemia; Primary hypertension; Kidney insufficiency; Impaired fasting glucose; penitentiary (current) use of anticoagulants; Recurrent pulmonary embolism (HCC); Vitamin D deficiency; Encounter for therapeutic drug monitoring Acupuncture appointm ent Start: 09-15-2023 Telephone encounter Zeny Cleav er DIRECTOR OF INCOME TAX.COMPUTER TECHNOLOGY TRAINER Work Phone: [facility] [place] Comment on above: Orders Start: 09-11-2023 Telephone encounter Zeny Cleav er DIRECTOR OF INCOME TAX.COMPUTER TECHNOLOGY TRAINER Work Phone: [facility] [place] Comment on above: Anticoagulation Patient Update Start: 09-08-2023 Telephone encounter Zeny Cleav er DIRECTOR OF INCOME TAX.COMPUTER TECHNOLOGY TRAINER Work Phone: [facility] [place] Comment on above: Opened In Error Letter Start: 09-07-2023 Telephone encounter Zeny Cleav er DIRECTOR OF INCOME TAX.COMPUTER TECHNOLOGY TRAINER Work Phone: [facility] [place] Comment on above: Medication Problem Start: 09-06-2023 Refill Zeny Genaro DIRECTOR OF INCOME TAX.COMPUTER TECHNOLOGY TRAINER Work Phone: [facility] [place] Comment on above: Med Change Request Start: 09-04-2023 Telephone encounter Zeny Cleav er DIRECTOR OF INCOME TAX.COMPUTER TECHNOLOGY TRAINER Work Phone: [facility] [place] Comment on above: Anticoagulation Letter Start: 09-02-2023 Telephone encounter Zeny Cleav er DIRECTOR OF INCOME TAX.COMPUTER TECHNOLOGY TRAINER Work Phone: [facility] [place] Comment on above: Patient Question Start: 08-28-2023 Telephone encounter Zeny Cleav er DIRECTOR OF INCOME TAX.COMPUTER TECHNOLOGY TRAINER Work Phone: [facility] [place] Comment on above: Question Start: 08-27-2023 Telephone encounter Zeny Cleav er DIRECTOR OF INCOME TAX.COMPUTER TECHNOLOGY TRAINER Work Phone: [facility] [place] Comment on above: Patient Question Start: 08-27-2023 End: 08-27-2023 Patient encounter procedure Irene Moraes MD Work Phone: Integrative [facility] Comment on above: Compression fracture of L1 vertebra with routine healing, subsequent encounter; Chronic low back pain without sciatica, unspecified back pain laterality Start: 08-26-2023 Telephone encounter Zeny Cleav er DIRECTOR OF INCOME TAX.COMPUTER TECHNOLOGY TRAINER Work Phone: [facility] [place] Comment on above: Results Start: 08-25-2023 End: 08-25-2023 Subsequent hospital visit by physician Mala [facility] [place] Work Phone: Radiology Comment on above: SOB (shortness of br eath) [R06.02] Start: 08-25-2023 End: 08-25-2023 Patient encounter procedure Zeny Genaro DIRECTOR OF INCOME TAX.KAYLA Work Phone: [facility] [place] Comment on above: Chronic low back sharon n without sciatica, unspecified back pain laterality (Primary Dx); Compression fracture of L1 vertebra with routine healing, subsequent encounter; Primary hypertension; SOB (shortness of breath); History of smoking; BPH with obstruction/lower urinary tract symptoms Start: 08-24-2023 Telephone encounter Zeny Cleav er DIRECTOR OF INCOME TAX.COMPUTER TECHNOLOGY TRAINER Work Phone: [facility] [place] Comment on above: Anticoagulation Start: 08-23-2023 ambulatory Zeny Genaro DIRECTOR OF INCOME TAX.COMPUTER TECHNOLOGY TRAINER Work Phone: [facility] [place] Comment on above: Update on my fall co ndition Start: 08-18-2023 Refill Zeny Genaro DIRECTOR OF INCOME TAX.COMPUTER TECHNOLOGY TRAINER Work Phone: [facility] [place] Comment on above: Refill Request Start: 08-14-2023 Telephone encounter Zeny Cleav er DIRECTOR OF INCOME TAX.COMPUTER TECHNOLOGY TRAINER Work Phone: [facility] [place] Comment on above: Anticoagulation Start: 08-12-2023 Refill Zeny Genaro DIRECTOR OF INCOME TAX.COMPUTER TECHNOLOGY TRAINER Work Phone: [facility] [place] Comment on above: Refill Request Start: 08-11-2023 Refill Zeny Genaro DIRECTOR OF INCOME TAX.COMPUTER TECHNOLOGY TRAINER Work Phone: [facility] [place] Comment on above: Refill Request Start: 08-10-2023 End: 08-10-2023 Patient encounter procedure Micah Portillo APRN.COMPUTER TECHNOLOGY TRAINER, DNP Work Phone: Urology Comment on above: Benign prostatic hyp erplasia with nocturia (Primary Dx) Start: 08-04-2023 Refill Zeny Genaro DIRECTOR OF INCOME TAX.COMPUTER TECHNOLOGY TRAINER Work Phone: [facility] [place] Comment on above: Refill Request Start: 07-30-2023 Telephone encounter Zeny Cleav er DIRECTOR OF INCOME TAX.COMPUTER TECHNOLOGY TRAINER Work Phone: [facility] Comment on above: Anticoagulation Start: 07-29-2023 ambulatory Zeny Genaro DIRECTOR OF INCOME TAX.COMPUTER TECHNOLOGY TRAINER Work Phone: [facility] [place] Comment on above: Off and on again Cum josias Start: 07-27-2023 End: 07-27-2023 Patient encounter procedure Zeny Genaro DIRECTOR OF INCOME TAX.COMPUTER TECHNOLOGY TRAINER Work Phone: [facility] [place] Comment on above: Compression fracture of L1 vertebra with routine healing, subsequent encounter (Primary Dx); Chronic low back pain without sciatica, unspecified back pain laterality; Acute bilateral low back pain with bilateral sciatica; Urinary dysfunction; Primary hypertension Start: 07-26-2023 Refill Zeny Genaro DIRECTOR OF INCOME TAX.COMPUTER TECHNOLOGY TRAINER Work Phone: [facility] [place] Comment on above: Refill Request Start: 07-23-2023 Refill Zeny Genaro DIRECTOR OF INCOME TAX.COMPUTER TECHNOLOGY TRAINER Work Phone: [facility] [place] Comment on above: Med Change Request Start: 07-21-2023 End: 07-21-2023 Patient encounter procedure Edgar Loaiza DO Work Phone: Vascular Surgery Comment on above: 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); PAD (peripheral artery disease) ([facility]) Start: 07-20-2023 Refill Zeny Genaro DIRECTOR OF INCOME TAX.COMPUTER TECHNOLOGY TRAINER Work Phone: [facility] [place] Comment on above: Refill Request Start: 07-19-2023 ambulatory Zeny Genaro DIRECTOR OF INCOME TAX.COMPUTER TECHNOLOGY TRAINER Work Phone: [facility] Start: 07-19-2023 Emergency department patient visit Zeny Genaro DIRECTOR OF INCOME TAX.COMPUTER TECHNOLOGY TRAINER Work Phone: [facility] [place] Comment on above: Physical therapist suad thomas emergency room back findings Start: 07-18-2023 End: 07-18-2023 Patient encounter procedure Franc Hills MD Work Phone: [facility] [place] Comment on above: Compression fracture of L1 vertebra with routine healing, subsequent encounter (Primary Dx); Chronic bilateral low back pain with bilateral sciatica; BPH with obstruction/lower urinary tract symptoms Start: 07-17-2023 Refill Zeny Genaro DIRECTOR OF INCOME TAX.COMPUTER TECHNOLOGY TRAINER Work Phone: [facility] [place] Comment on above: Refill Request Start: 07-17-2023 Refill Zeny Genaro DIRECTOR OF INCOME TAX.COMPUTER TECHNOLOGY TRAINER Work Phone: [facility] Comment on above: Refill Request Start: 07-16-2023 ambulatory Mckinley Leal MD Work Phone: [facility] [place] Start: 07-16-2023 Emergency department patient visit Mckinley Leal MD Work Phone: Pain Management Comment on above: Back issues after vi sit to physical therapy and your emergency room Start: 07-15-2023 Telephone encounter Zeny Cleav er DIRECTOR OF INCOME TAX.COMPUTER TECHNOLOGY TRAINER Work Phone: [facility] Comment on above: Anticoagulation Start: 07-15-2023 End: 07-15-2023 ambulatory Brian Carvajal [facility] Comment on above: Chronic low back sharon n without sciatica, unspecified back pain laterality; Compression fracture of L1 vertebra with routine healing, subsequent encounter; Sciatic leg pain Start: 07-13-2023 Refill Zeny Genaro DIRECTOR OF INCOME TAX.COMPUTER TECHNOLOGY TRAINER Work Phone: [facility] Comment on above: Refill Request Start: 07-06-2023 Refill Zeny Genaro DIRECTOR OF INCOME TAX.COMPUTER TECHNOLOGY TRAINER Work Phone: [facility] [place] Comment on above: Patient Question; Re fill Request Start: 06-30-2023 Telephone encounter Zeny Cleav er DIRECTOR OF INCOME TAX.COMPUTER TECHNOLOGY TRAINER Work Phone: [facility] Comment on above: Anticoagulation Start: 06-29-2023 End: 06-29-2023 Patient encounter procedure Zeny Genaro DIRECTOR OF INCOME TAX.COMPUTER TECHNOLOGY TRAINER Work Phone: [facility] [place] Comment on above: Acute bilateral low back pain with bilateral sciatica (Primary Dx); Chronic low back pain without sciatica, unspecified back pain laterality; Compression fracture of L1 vertebra with routine healing, subsequent encounter Start: 06-24-2023 Telephone encounter Zeny Cleav er DIRECTOR OF INCOME TAX.COMPUTER TECHNOLOGY TRAINER Work Phone: [facility] [place] Comment on above: Patient Question; Ap pointment Start: 06-23-2023 Refill Zeny Genaro DIRECTOR OF INCOME TAX.COMPUTER TECHNOLOGY TRAINER Work Phone: [facility] [place] Comment on above: Patient Update; Refi ll Request Start: 06-19-2023 Telephone encounter Zeny Cleav er DIRECTOR OF INCOME TAX.COMPUTER TECHNOLOGY TRAINER Work Phone: [facility] [place] Comment on above: Anticoagulation Medication Question Start: 06-15-2023 End: 06-15-2023 Patient encounter procedure Sunny Mercedes MD Work Phone: Cardiology Comment on above: Screening for ischem ic heart disease (Primary Dx); Primary hypertension; Mixed hyperlipidemia; History of left-sided carotid endarterectomy; Recurrent pulmonary embolism ([facility]); PAD (peripheral artery disease) ([facility]); Bilateral carotid artery stenosis Refill Request (ques tion ) Start: 06-15-2023 Refill Zeny Genaro DIRECTOR OF INCOME TAX.[facility] Work Phone: [facility] [place] Comment on above: Refill Request Start: 06-12-2023 Telephone encounter Zeny Cleav er DIRECTOR OF INCOME TAX.[facility] Work Phone: [facility] [place] Comment on above: back pain update Anticoagulation Start: 06-09-2023 ambulatory Zeny Genaro DIRECTOR OF INCOME TAX.COMPUTER TECHNOLOGY TRAINER Work Phone: [facility] [place] Comment on above: Back Brace Start: 06-08-2023 Refill Zeny Genaro DIRECTOR OF INCOME TAX.COMPUTER TECHNOLOGY TRAINER Work Phone: [facility] [place] Comment on above: Refill Request Start: 06-05-2023 Telephone encounter Zeny Cleav er DIRECTOR OF INCOME TAX.COMPUTER TECHNOLOGY TRAINER Work Phone: [facility] [place] Comment on above: Anticoagulation Start: 06-04-2023 ambulatory Zeny Genaro DIRECTOR OF INCOME TAX.COMPUTER TECHNOLOGY TRAINER Work Phone: [facility] [place] Comment on above: Disability parking p ass Start: 06-03-2023 End: 06-03-2023 Patient encounter procedure Mckinley Leal MD Work Phone: Pain Management Comment on above: Compression fracture of L1 vertebra, initial encounter ([facility]) (Primary Dx) Start: 06-03-2023 Telephone encounter Mckinley mullen MD Work Phone: Pain Management Comment on above: Orders (Back brace) Patient Update Start: 06-02-2023 ambulatory Zeny Genaro DIRECTOR OF INCOME TAX.COMPUTER TECHNOLOGY TRAINER Work Phone: [facility] [place] Comment on above: Dr. Leal Start: 05-29-2023 End: 05-29-2023 Refill Zeny Genaro DIRECTOR OF INCOME TAX.COMPUTER TECHNOLOGY TRAINER Work Phone: [facility] [place] Comment on above: Refill Request Lumbar pain [M54.50] Results Start: 05-26-2023 ambulatory Mckinley Leal MD Work Phone: Pain Management Comment on above: Back injury Start: 05-26-2023 Telephone encounter Zeny Cleav er DIRECTOR OF INCOME TAX.COMPUTER TECHNOLOGY TRAINER Work Phone: [facility] [place] Comment on above: Anticoagulation Start: 05-26-2023 End: 05-26-2023 Patient encounter procedure Edgar David Loaiza DO Work Phone: Vascular Surgery Comment on above: 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); PAD (peripheral artery disease) (HCC) Start: 05-23-2023 ambulatory Rosalia torre LPN [employer] Comment on above: Question MRI WO Contrast Start: 05-21-2023 Refill Zeny Genaro DIRECTOR OF INCOME TAX.COMPUTER TECHNOLOGY TRAINER Work Phone: [facility] [place] Comment on above: Refill Request Start: 05-19-2023 Telephone encounter Zeny Cleav er DIRECTOR OF INCOME TAX.COMPUTER TECHNOLOGY TRAINER Work Phone: [facility] [place] Comment on above: Patient Question Anticoagulation Start: 05-18-2023 End: 05-18-2023 Patient encounter procedure Zeny Genaro DIRECTOR OF INCOME TAX.COMPUTER TECHNOLOGY TRAINER Work Phone: [facility] [place] Comment on above: Acute bilateral low back pain without sciatica (Primary Dx); Lumbar pain; Fall, subsequent encounter; Recurrent pulmonary embolism (HCC) Start: 05-15-2023 Telephone encounter Zeny Cleav er DIRECTOR OF INCOME TAX.COMPUTER TECHNOLOGY TRAINER Work Phone: [facility] Comment on above: medication issue Start: 05-14-2023 ambulatory Zeny Genaro DIRECTOR OF INCOME TAX.COMPUTER TECHNOLOGY TRAINER Work Phone: [facility] [place] Comment on above: Fall Start: 05-14-2023 End: 05-14-2023 Emergency department patient visit Lisandro Mora Facility:[facility] Start: 05-13-2023 Refill Zeny Genaro DIRECTOR OF INCOME TAX.COMPUTER TECHNOLOGY TRAINER Work Phone: [facility] [place] Comment on above: Refill Request Start: 05-07-2023 ambulatory Zeny Genaro DIRECTOR OF INCOME TAX.COMPUTER TECHNOLOGY TRAINER Work Phone: [facility] [place] Comment on above: Lorazapam renewal. Start: 05-06-2023 Refill Zeny Genaro DIRECTOR OF INCOME TAX.COMPUTER TECHNOLOGY TRAINER Work Phone: [facility] [place] Comment on above: Refill Request Start: 03-24-2023 ambulatory Zeny Genaro DIRECTOR OF INCOME TAX.COMPUTER TECHNOLOGY TRAINER Work Phone: [facility] [place] Comment on above: Low BP Start: 03-20-2023 Telephone encounter Zeny Cleav er DIRECTOR OF INCOME TAX.COMPUTER TECHNOLOGY TRAINER Work Phone: Internal [facility] [place] Comment on above: Patient Question Start: 03-18-2023 Telephone encounter Mani zurita MD Work Phone: Family [facility] Comment on above: Anticoagulation Start: 03-10-2023 Telephone encounter Zeny Cleav er DIRECTOR OF INCOME TAX.COMPUTER TECHNOLOGY TRAINER Work Phone: Family [facility] Comment on above: Medication Problem Start: 03-04-2023 Telephone encounter Zeny Cleav er DIRECTOR OF INCOME TAX.COMPUTER TECHNOLOGY TRAINER Work Phone: [facility] [place] Comment on above: Anticoagulation Start: 03-02-2023 Telephone encounter Zeny Cleav er DIRECTOR OF INCOME TAX.COMPUTER TECHNOLOGY TRAINER Work Phone: [facility] [place] Comment on above: Orders Start: 02-27-2023 Telephone encounter Zeny Cleav er DIRECTOR OF INCOME TAX.COMPUTER TECHNOLOGY TRAINER Work Phone: [facility] [place] Comment on above: Results Start: 02-24-2023 End: 02-09-2024 Telephone encounter Micah Rosenberg MD Work Phone: General Surgery Comment on above: 04/20/2022 EGD [facility] Start: 02-23-2023 Telephone encounter Zeny Cleav er DIRECTOR OF INCOME TAX.COMPUTER TECHNOLOGY TRAINER Work Phone: [facility] [place] Comment on above: Patient Question Start: 02-18-2023 Telephone encounter Mani zurita MD Work Phone: [facility] [place] Comment on above: Anticoagulation Start: 02-10-2023 Telephone encounter Ezny Cleav er DIRECTOR OF INCOME TAX.COMPUTER TECHNOLOGY TRAINER Work Phone: [facility] [place] Comment on above: Patient Question Start: 02-08-2023 Refill Zeny Elizabethr DIRECTOR OF INCOME TAX.COMPUTER TECHNOLOGY TRAINER Work Phone: [facility] [place] Comment on above: Refill Request Don't refill my pres cription for Pantoprazole Start: 02-04-2023 Telephone encounter Zeny Cleav er DIRECTOR OF INCOME TAX.COMPUTER TECHNOLOGY TRAINER Work Phone: [facility] Comment on above: Anticoagulation Start: 01-29-2023 Refill Sara Older DIRECTOR OF INCOME TAX .COMPUTER TECHNOLOGY TRAINER Work Phone: Internal Medicine [place] Comment on above: Refill Request Start: 01-23-2023 End: 01-23-2023 Patient encounter procedure Zeny Elizabethr DIRECTOR OF INCOME TAX.COMPUTER TECHNOLOGY TRAINER Work Phone: [facility] [place] Comment on above: Mixed hyperlipidemia (Primary Dx); Recurrent pulmonary embolism (HCC); penitentiary (current) use of anticoagulants; Acute gastritis without hemorrhage, unspecified gastritis type; History of left-sided carotid endarterectomy; Spinal stenosis of lumbar region, unspecified whether neurogenic claudication present; Primary hypertension Start: 01-22-2023 Telephone encounter Franc khan MD Work Phone: [facility] [place] Comment on above: Anticoagulation Start: 01-19-2023 End: 01-19-2023 Patient encounter procedure Mckinley Leal MD Work Phone: Pain Management Comment on above: Spinal stenosis of l umbar region, unspecified whether neurogenic claudication present (Primary Dx); Lumbar spondylosis Start: 01-16-2023 Refill Franc grissom MD Work Phone: [facility] [place] Comment on above: Medication Question Start: 01-14-2023 ambulatory Zeny Genaro DIRECTOR OF INCOME TAX.COMPUTER TECHNOLOGY TRAINER Work Phone: [facility] [place] Comment on above: My Chart Start: 01-14-2023 Telephone encounter Zeny Cleav er DIRECTOR OF INCOME TAX.COMPUTER TECHNOLOGY TRAINER Work Phone: [facility] [place] Comment on above: Anticoagulation Start: 01-12-2023 ambulatory Edgar Worthy Work Phone: Vascular Surgery Comment on above: Rouvastatine dosage Start: 01-09-2023 Telephone encounter Franc khan MD Work Phone: [facility] [place] Comment on above: Anticoagulation Start: 01-07-2023 Telephone encounter Franc khan MD Work Phone: [facility] [place] Comment on above: Anticoagulation Start: 12-30-2022 Telephone encounter Zeny grove DIRECTOR OF INCOME TAX.COMPUTER TECHNOLOGY TRAINER Work Phone: [facility] [place] Comment on above: Future Appointment Start: 12-29-2022 End: 12-29-2022 Patient encounter procedure Zeny Lam DIRECTOR OF INCOME TAX.COMPUTER TECHNOLOGY TRAINER Work Phone: [facility] [place] Comment on above: Gastroesophageal ref lux disease without esophagitis (Primary Dx); Acute gastritis without hemorrhage, unspecified gastritis type Start: 12-29-2022 ambulatory Tammie Rg RN NURS E SPUD [facility]LLER Comment on above: Information Start: 12-25-2022 Telephone encounter Franc khan MD Work Phone: Internal [facility] [place] Comment on above: Patient Question Start: 12-17-2022 ambulatory Mckinley Leal MD Work Phone: Pain Management Comment on above: New Covid Vaccine Start: 12-17-2022 Telephone encounter Franc khan MD Work Phone: [facility] [place] Comment on above: Patient Question Start: 12-14-2022 [...] of right eye Start: 12-08-2022 Refill Sarashannon AhujaCOMPUTER TECHNOLOGY TRAINER Work Phone: Internal [facility] [place] Comment on above: Refill Request Start: 12-04-2022 Telephone encounter Franc khan MD Work Phone: Internal [facility] [place] Comment on above: Patient Question Start: 12-03-2022 Telephone encounter Mckinley mullen MD Work Phone: Pain Management Comment on above: Patient Update (Anti coagulation hold for 11/26/22) Anticoagulation Start: 12-02-2022 Telephone encounter Franc khan MD Work Phone: [facility] [place] Comment on above: Patient Update Start: 12-01-2022 Telephone encounter Franc khan MD Work Phone: [facility] [place] Start: 11-24-2022 End: 11-24-2022 Patient encounter procedure Franc Hills MD Work Phone: Internal [facility] [place] Comment on above: Chronic low back sharon n without sciatica, unspecified back pain laterality (Primary Dx); Primary hypertension; Kidney insufficiency; Impaired fasting glucose Start: 11-18-2022 ambulatory Mckinley Leal MD Work Phone: Pain Management Comment on above: Past procedure and C PTs PATIENT PROCEDURE IN STRUCTIONS for 12/23/22 Start: 11-18-2022 E-mail encounter fro m caregiver Mckinley Leal MD Work Phone: [facility] Start: 11-12-2022 Telephone encounter Mckinley mullen MD Work Phone: Pain Management Comment on above: Appointment Start: 11-11-2022 Telephone encounter Franc khan MD Work Phone: Internal [facility] [place] Comment on above: Patient Update Orders Anticoagulation Start: 11-10-2022 End: 11-10-2022 Patient encounter procedure Salas Johns MD Work Phone: [facility] [place] Comment on above: Chronic low back sharon n without sciatica, unspecified back pain laterality; Spinal stenosis of lumbar region, unspecified whether neurogenic claudication present Start: 11-07-2022 Telephone encounter Franc khan MD Work Phone: [facility] [place] Comment on above: Medication Update Re quest Start: 11-04-2022 Telephone encounter Farnc khan MD Work Phone: [facility] [place] Comment on above: standing lab order f [...] Franc khan MD Work Phone: [facility] [place] Comment on above: Anticoagulation Start: 09-26-2022 Chart [...] Franc khan MD Work Phone: [facility] [place] Comment on above: Anticoagulation Start: 09-09-2022 Refill Franc grissom MD Work Phone: [facility] [place] Comment on above: Refill Request Start: 09-03-2022 Telephone encounter Franc khan MD Work Phone: [facility] [place] Comment on above: Anticoagulation Start: 08-11-2022 End: [...] patient Mj Dos Santos MD Work Phone: [facility] Start: 08-06-2022 Telephone encounter Franc khan MD Work Phone: [facility] [place] Comment on above: Anticoagulation Start: 07-30-2022 Telephone encounter Franc khan MD Work Phone: [facility] [place] Comment on above: Anticoagulation Start: 07-28-2022 Telephone encounter Franc khan MD Work Phone: [facility] [place] Comment on above: Patient Question Start: 07-16-2022 Telephone encounter Franc khan MD Work Phone: [facility] [place] Comment on above: Anticoagulation Start: 07-09-2022 Telephone [...] Franc khan MD Work Phone: [facility] [place] Comment on above: Patient Update Start: 06-03-2022 Telephone encounter Franc khan MD Work Phone: [facility] [place] Comment on above: Anticoagulation Start: 06-02-2022 End: 06-02-2022 Patient encounter procedure Franc Hills MD Work Phone: [facility] [place] Start: 06-02-2022 End: 06-02-2022 Refill Franc Hills MD Work Phone: [facility] [place] Comment on above: Refill Request Medicare annual [facility] visit, subsequent (Primary Dx); PAD (peripheral artery disease) (HCC); Chronic low back pain without sciatica, unspecified back pain laterality; Primary hypertension; Mixed hyperlipidemia; Recurrent pulmonary embolism (HCC); Impaired fasting glucose Start: 05-31-2022 Refill Sara Baxter APRN, .CNP Work Phone: [facility] [place] Comment on above: Refill Request Start: 05-26-2022 Telephone encounter Mj waddell MD Work Phone: Vascular Medicine Comment on above: Phone call to imeldabull tolentino (Re: Scheduling ECHO) Start: 05-22-2022 Telephone encounter Franc khan MD Work Phone: [facility] [place] Comment on above: Anticoagulation Start: 05-21-2022 Telephone encounter Franc khan MD Work Phone: [facility] [place] Comment on above: Lab Orders Orders Start: [...] Franc khan MD Work Phone: [facility] [place] Comment on above: Coumadin instruction request Start: 04-16-2022 Telephone encounter Franc khan MD Work Phone: [facility] [place] Comment on above: Anticoagulation Start: 04-11-2022 Telephone encounter Franc khan MD Work Phone: [facility] [place] Comment on above: Anticoagulation Start: 04-11-2022 End: 04-11-2022 [facility] [place] Comment on above: 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 Start: 04-06-2022 ambulatory Franc grissom MD Work Phone: [facility] [place] Comment on above: My Potassium prescri ption Start: 04-04-2022 Refill Franc grissom MD Work Phone: [facility] [place] Comment on above: Refill Request Start: 04-01-2022 Telephone encounter Franc khan MD Work Phone: [facility] [place] Comment on above: Anticoagulation (/) Start: 03-24-2022 End: 03-24-2022 Admission to same day surgery center [facility]-Endoscopy Start: 03-24-2022 End: 03-24-2022 ambulatory [facility] Work Phone: Start: 03-20-2022 Telephone encounter Franc khan MD Work Phone: Internal [facility] [place] Comment on above: Patient Update Start: 03-18-2022 Telephone encounter Franc khan MD Work Phone: [facility] [place] Comment on above: Back Pain Start: 03-17-2022 MC Patient Msg [facility] Provider [facility] [place] Comment on above: Refill request Start: 03-13-2022 Telephone encounter Franc khan MD Work Phone: [facility] [place] Comment on above: Results Start: 03-11-2022 Refill Franc grissom MD Work Phone: [facility] [place] Comment on above: Refill Request; Imelda ent Update Start: 03-06-2022 End: 03-06-2022 [facility] Work Phone: [facility] [place] Comment on above: 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); Recurrent pulmonary embolism (HCC) Start: 02-18-2022 Telephone encounter Franc khan MD Work Phone: Coumadin [facility] [place] Comment on above: Orders (protime) Start: 02-18-2022 End: 02-18-2022 Anticoagulant drug monitoring [facility] Work Phone: Coumadin [facility] [place] Comment on above: penitentiary (current) use of anticoagulants (Primary Dx); Recurrent pulmonary embolism (HCC) Start: 02-11-2022 Telephone encounter Franc khan MD Work Phone: [facility] [place] Comment on above: Patient Update Start: 02-03-2022 Telephone encounter Mani zurita MD Work Phone: [facility] [place] Comment on above: Medication Problem Start: 02-03-2022 End: 02-03-2022 Patient encounter procedure Bonnie Sharif APRN.COMPUTER TECHNICAL SPECIALIST Work Phone: [facility] [place] Comment on above: Primary hypertension (Primary Dx); 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; Recurrent pulmonary embolism (HCC); Chronic low back pain without sciatica, unspecified back pain laterality Start: 02-01-2022 ambulatory Franc grissom MD Work Phone: [facility] [place] Comment on above: Question regarding P ROTHROMBIN TIME/PT(INR INCL.) Start: 01-31-2022 Telephone encounter Franc khan MD Work Phone: [facility] [place] Comment on above: Anticoagulation Start: 01-24-2022 Telephone encounter Franc khan MD Work Phone: [facility] [place] Comment on above: Anticoagulation Start: 01-22-2022 Telephone encounter Franc khan MD Work Phone: [facility] [place] Comment on above: FYI-No Action Needed Start: 01-15-2022 Telephone encounter Franc khan MD Work Phone: [facility] [place] Comment on above: Patient Question Start: 01-13-2022 Telephone encounter Franc khan MD Work Phone: [facility] [place] Comment on above: Patient Question; Pa tient Update Start: 01-08-2022 Telephone encounter Franc khan MD Work Phone: [facility] [place] Comment on above: Anticoagulation (P t requesting INR results/instructions to be left on his VM) Start: 01-06-2022 Telephone encounter Franc khan MD Work Phone: [facility] [place] Comment on above: Patient Question Start: 01-03-2022 Telephone encounter Franc khan MD Work Phone: [facility] [place] Comment on above: Patient Update Start: 12-31-2021 [...] patient Iglesia Ansari MD Work Phone: [facility] Start: 12-18-2021 Telephone encounter Iglesia Mcdonald se, MD Work Phone: Vascular Surg Dept Comment on above: Results Start: 12-17-2021 Refill Sara AhujaCOMPUTER TECHNOLOGY TRAINER Work Phone: Internal [facility] [place] Comment on above: Refill Request Start: 12-12-2021 Telephone encounter Kvng Magaña MD Work Phone: Ophthalmology Comment on above: Patient Question Start: 12-11-2021 Telephone encounter Franc khan MD Work Phone: [facility] [place] Comment on above: Patient Request Anticoagulation Start: 12-10-2021 End: 12-10-2021 Patient encounter procedure Kvng Magaña MD Work Phone: Ophthalmology Comment on above: Macular hole of left eye (Primary Dx) Start: 11-27-2021 Refill Franc grissom MD Work Phone: [facility] [place] Comment on above: Refill Request Anticoagulation Start: 11-24-2021 Refill Franc grissom MD Work Phone: [facility] [place] Comment on above: Refill Request Start: 11-14-2021 Telephone encounter Franc khan MD Work Phone: [facility] [place] Comment on above: Anticoagulation Start: 11-13-2021 End: 11-13-2021 Office outpatient visit 25 minutes Franc Hills MD Work Phone: [facility] [place] Comment on above: Primary hypertension (Primary Dx); 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; Mixed hyperlipidemia; Screening for prostate cancer; Chronic low back pain without sciatica, unspecified back pain laterality Start: 11-12-2021 End: 11-12-2021 Patient encounter procedure Micah Rosenberg MD Work Phone: General Surgery Comment on above: Personal history of colonic polyps (Primary Dx) Start: 11-01-2021 Telephone encounter Franc khan MD Work Phone: [facility] [place] Comment on above: Anticoagulation Start: 10-25-2021 Telephone [...] Franc khan MD Work Phone: [facility] [place] Comment on above: Anticoagulation Start: 10-03-2021 Telephone encounter Franc khan MD Work Phone: [facility] [place] Comment on above: Anticoagulation Start: 10-01-2021 Refill Sara Baxter DIRECTOR OF INCOME TAX .COMPUTER TECHNOLOGY TRAINER Work Phone: Internal Medicine [place] Comment on above: Refill Request Start: 09-28-2021 ambulatory Franc grissom MD Work Phone: [facility] Start: 09-28-2021 End: 09-28-2021 [facility] Start: 09-23-2021 Telephone encounter Franc khan MD Work Phone: Internal [facility] [place] Comment on above: Insurance Authorizat ion Start: 09-23-2021 End: 09-23-2021 Patient encounter procedure Teri Gruber DIRECTOR OF INCOME TAX.COMPUTER TECHNOLOGY TRAINER Work Phone: Family [facility] [place] Comment on above: Pain in gums (Primar y Dx); Periodontal disease; Chronic low back pain without sciatica, unspecified back pain laterality Start: 09-20-2021 Refill Franc grissom MD Work Phone: Internal [facility] [place] Comment on above: Refill Request Start: 09-18-2021 Telephone encounter Franc khan MD Work Phone: [facility] [place] Comment on above: Anticoagulation Start: 09-04-2021 Telephone encounter Franc khan MD Work Phone: [facility] [place] Comment on above: Medication Question Anticoagulation Start: 08-23-2021 Telephone encounter Franc khan MD Work Phone: [facility] [place] Comment on above: Patient Update Start: 08-22-2021 End: 08-22-2021 Patient encounter procedure Franc Hills MD Work Phone: [facility] [place] Comment on above: Eustachian tube dysf unction, right (Primary Dx); Primary hypertension; Recurrent pulmonary embolism (HCC) Start: 08-22-2021 Telephone encounter Franc khan MD Work Phone: [facility] [place] Comment on above: Anticoagulation Start: 08-20-2021 Telephone encounter Franc khan MD Work Phone: [facility] [place] Comment on above: Results, Lab (Home C ovid Test) Start: 08-16-2021 End: 08-16-2021 Patient encounter procedure Mj Dos Santos MD Work Phone: Cardiology Comment on above: Recurrent pulmonary embolism (HCC) (Primary Dx); History of left-sided carotid endarterectomy; Mixed hyperlipidemia; Primary hypertension; PAD (peripheral artery disease) (HCC) Start: 08-14-2021 Telephone encounter Franc khan MD Work Phone: [facility] [place] Comment on above: Patient Question Start: 08-07-2021 Telephone encounter Franc khan MD Work Phone: [facility] [place] Comment on above: Anticoagulation Refill Request Start: 07-24-2021 Telephone encounter Franc khan MD Work Phone: [facility] [place] Comment on above: Anticoagulation Start: 07-11-2021 Telephone encounter Sara Batxer APRN.CNP Work Phone: [facility] [place] Comment on above: Ear Problem Start: 07-10-2021 Telephone encounter Franc khan MD Work Phone: [facility] [place] Comment on above: Anticoagulation Start: 07-03-2021 End: 07-03-2021 Patient encounter procedure Sara Baxter APRN.COMPUTER TECHNOLOGY TRAINER Work Phone: [facility] [place] Comment on above: Suppurative otitis m edia of right ear, unspecified chronicity (Primary Dx) Start: 06-27-2021 Telephone encounter Franc khan MD Work Phone: [facility] [place] Comment on above: Anticoagulation Start: 01-13-2020 End: 01-13-2020 Subsequent hospital visit by physician Xr [facility] [place] Work Phone: Radiology Comment on above: Wrist injuries, righ t, initial encounter [S69.91XA] Procedures Date Procedure Procedure Detail Performing Clinician Start: 11-20-[address] Danielle Han DO Work Phone: Start: 08-11-2024 Computerized ophthalmic imaging retina Kvng Magaña MD Work Phone: Start: 08-04-2024 Nitric oxide gas determination Zeny Lam APRN.COMPUTER TECHNOLOGY TRAINER Work Phone: Start: 08-04-2024 Brncdilat rspse spmtry pre&post-brncdilat admn Zeny Lam APRN.CNP Work Phone: Start: 07-18-2024 Myocardial spect multiple studies Teri Gruber APRN.COMPUTER TECHNOLOGY TRAINER Work Phone: Start: 03-10-2024 Prothrombin time [facility] Provider Start: 02-29-2024 Ct head/brain w/o contrast material Zeny Lam APRN.CNP Work Phone: Start: 01-06-2024 Adult depression screening assessment Zeny Lam APRN.COMPUTER TECHNOLOGY TRAINER Work Phone: Start: 12-28-2023 Prothrombin time Zeny Lam APRN.CNP Work Phone: Start: 11-16-2023 Urnls dip stick/tablet rgnt auto w/o microscopy Micah Portillo APRN.COMPUTER TECHNOLOGY TRAINER, DNP Work Phone: Start: 11-10-2023 Prothrombin time [facility] Provider Start: 10-05-2023 Prothrombin time [facility] Provider Start: 09-04-2023 Prothrombin time [facility] Provider Start: 08-25-2023 Radiologic exam chest 2 views Zeny Lam APRN.COMPUTER TECHNOLOGY TRAINER Work Phone: Start: 08-24-2023 Prothrombin time [facility] Provider Start: 07-30-2023 Prothrombin time [facility] Provider Start: 07-15-2023 Prothrombin time [facility] Provider Start: 06-30-2023 Prothrombin time [facility] Provider Start: 06-19-2023 PROTHROMBIN TIME/PT [facility] Provider Start: 06-05-2023 PROTHROMBIN TIME/PT [facility] Provider Start: 05-29-2023 Mri spinal canal lumbar w/o contrast material Zeny Lam APRN.COMPUTER TECHNOLOGY TRAINER Work Phone: Start: 05-26-2023 PROTHROMBIN TIME/PT [facility] [...] wrist complete minimum 3 views Kvng Freire APRN.COMPUTER TECHNOLOGY TRAINER Work Phone: Start: 06-10-2019 History of carotid endarterectomy History of left-sided carotid endarterectomy Franc Hills MD Work Phone: History of carotid endarterectomy History of left-sided carotid endarterectomy Mj Dos Santos MD Work Phone: History of carotid endarterectomy History of left-sided carotid endarterectomy Mj Dos Santos MD Work Phone: History of carotid endarterectomy History of left-sided carotid endarterectomy Zeny Lam APRN.COMPUTER TECHNOLOGY TRAINER Work Phone: History of carotid endarterectomy History of left-sided carotid endarterectomy Sunny Mercedes MD Work Phone: History of carotid endarterectomy History of left-sided carotid endarterectomy Sunny Mercedes MD Work Phone: Plan of Treatment Date Care Activity Detail Author Start: 01-10-2031 Urine microalbumin profile [facility] Start: 11-10-2027 Diabetes Screening Diabetes Screening [facility] Start: 10-22-2027 Urine microalbumin profile DTAP,TDAP,TD (2 - Td or Tdap) [facility] Start: 08-11-2027 Diabetes Screening Diabetes Screening [facility] Start: 02-08-2027 Diabetes Screening Diabetes Screening [facility] Start: 12-13-2026 Diabetes Screening Diabetes Screening [facility] Start: 09-07-2026 Diabetes Screening Diabetes Screening [facility] Start: 07-14-2026 Diabetes Screening Diabetes Screening [facility] Start: 06-04-2026 Diabetes Screening Diabetes Screening [facility] Start: 02-25-2026 Diabetes Screening Diabetes Screening [facility] Start: 01-14-2026 Diabetes Screening Diabetes Screening [facility] Start: 08-18-2025 DIABETES SCREEN DIABETES SCREEN [facility] Start: 08-18-2025 Diabetes Screening Diabetes Screening [facility] Start: 08-15-2025 Annual PCP Team Chronic Disease Visit Annual PCP Team Chronic Disease Visit [facility] Start: 08-15-2025 BP Controlled (<130/80) BP Controlled (<130/80) [facility] Start: 07-30-2025 DIABETES SCREEN DIABETES SCREEN [facility] Start: 07-25-2025 Annual PCP Team Chronic Disease Visit Annual PCP Team Chronic Disease Visit [facility] Start: 07-25-2025 BP Controlled (<130/80) BP Controlled (<130/80) [facility] Start: 07-25-2025 End: 07-25-2025 Patient encounter procedure 07/25/2025 10:45 AM EDT Office Visit [facility] Ophthalmology 2021 [facility] [address] [address] Kvng Magaña MD [address] [place] [id number] [facility] [address] [facility] [facility] [address] [place] [address] Return in one year Ophthalmology Comment on above: Return in one year Start: 06-12-2025 End: 06-12-2025 Patient encounter procedure 06/12/2025 1:20 PM EDT Office Visit Cardiology [address] [place] [address] Sunny Mercedes MD [address] [id number] 9 month follow up Cardiology Comment on above: 9 month follow up Start: 06-08-2025 Annual PCP Team Chronic Disease Visit Annual PCP Team Chronic Disease Visit [facility] Start: 06-08-2025 BP Controlled (<130/80) BP Controlled (<130/80) [facility] Start: 05-26-2025 DIABETES SCREEN DIABETES SCREEN [facility] Start: 05-24-2025 BP Controlled (<130/80) BP Controlled (<130/80) [facility] Start: 05-17-2025 Annual PCP Team Chronic Disease Visit Annual PCP Team Chronic Disease Visit [facility] Start: 05-17-2025 BP Controlled (<130/80) BP Controlled (<130/80) [facility] Start: 02-14-2025 Annual PCP Team Chronic Disease Visit Annual PCP Team Chronic Disease Visit [facility] Start: 01-19-2025 Annual PCP Team Chronic Disease Visit Annual PCP Team Chronic Disease Visit [facility] Start: 01-17-2025 End: 01-17-2025 Patient encounter procedure 01/17/2025 11:40 AM EDT Office Visit Family Medicine [place] [address] [facility] [place] [address] Teri Gruber APRN.COMPUTER TECHNOLOGY TRAINER [address] [place] [address] 2 month follow-up, Patient wanting to establish with Adolfo, wants to talk to BOOK AGENT first Family Medicine [place] Comment on above: 2 month follow-up, Patient wanting to es tablish with Adolfo, wants to talk to BOOK AGENT first Start: 01-05-2025 Annual PCP Team Chronic Disease Visit Annual PCP Team Chronic Disease Visit [facility] Start: 01-05-2025 Anxiety Screening Anxiety Screening [facility] Start: 01-05-2025 BP Controlled (<130/80) BP Controlled (<130/80) [facility] Start: 01-05-2025 Depression Screening Depression Screening [facility] Start: 12-23-2024 End: 12-23-2024 Patient encounter procedure 12/23/2024 2:15 PM EDT Appointment Radiology [address] [place] [id number] Screening for osteoporosis [Z13.820 Radiology Comment on above: Screening for osteoporosis [Z13.820 Start: 12-16-2024 End: 12-16-2024 Patient encounter procedure 12/16/2024 1:30 PM EDT Office Visit Pulmonary Medicine [address] [place] [address] Shruti Carrington APRN.COMPUTER TECHNOLOGY TRAINER [address] [place] [address] 8 wk f/u Pulmonary Medicine Comment on above: 8 wk f/u Start: 12-16-2024 End: 12-16-2024 ambulatory 12/16/2024 1:15 PM EDT Procedure PULM [facility] [address] [place] [address] Wstr, Pulm Lab [facility] [address] [place] [address] Mild persistent asthma without complication (HCC) [J45.30] P[facility] WS Comment on above: Mild persistent asthma without complicat ion (HCC) [J45.30] Start: 12-13-2024 Annual PCP Team Chronic Disease Visit Annual PCP Team Chronic Disease Visit [facility] Start: 12-06-2024 End: 12-06-2024 Patient encounter procedure Vasculary Guzmán rgery Comment on above: (peripheral artery disease) (HCC) [I73.9 ] 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 Urology Comment on above: 1 YR F/U BPH. Start: 11-23-2024 End: 11-23-2024 ambulatory 11/23/2024 11:15 AM EDT Results Only [place] Fernandezwn [facility] Laboratory [address] [place] [address] PT/INR [facility] [place] [facility] Laboratory Comment on above: PT/INR Start: 11-20-2024 Esophagogastroduodenoscopy EGD (Not Applicable) [facility] Start: 11-20-2024 Admission procedure [facility] Start: 11-15-2024 BP Controlled (<130/80) BP Controlled (<130/80) [facility] Start: 11-15-2024 End: 11-15-2024 Patient encounter procedure 11/15/2024 1:20 PM EDT Office Visit Internal Medicine [place] [address] [place] [address] Zeny Lam APRN.COMPUTER TECHNOLOGY TRAINER [address] [place] [address] 3 month follow up Internal Medicine [place] Comment on above: 3 month follow up Start: 11-09-2024 End: 11-09-2024 ambulatory 11/09/2024 11:30 AM EDT Results Only Al[place] Fernandezwn [facility] Laboratory [address] [place] [address] PT/INR--PROTHROMBIN TIME [PT] [facility] Laboratory Comment on above: PT/INR--PROTHROMBIN TIME [PT] Start: 11-04-2024 End: 11-04-2024 Patient encounter procedure 11/04/2024 2:15 PM EDT Appointment Radiology [address] [place] [id number] Screening for osteoporosis [Z13.820 Radiology Comment on above: Screening for osteoporosis [Z13.820 Start: 11-01-2024 DIABETES SCREEN DIABETES SCREEN [facility] Start: 10-28-2024 End: 10-28-[address] [facility] Comment on above: PT/INR Start: 10-20-2024 End: 01-19-2025 ALGN [facility] Comment on above: Expected: 10/20/2024, Expires: Start: 10-20-2024 End: 01-19-2025 IgE [Units/volume] in Serum or Plasma [facility] Comment on above: Expected: 10/20/2024, Expires: Start: 10-20-2024 End: 11-19-2025 XR Chest PA and Lateral [facility] Work Phone: Comment on above: Expected: 10/20/2024, Expires: Start: 10-20-2024 End: 10-20-2024 Patient encounter procedure 10/20/2024 1:30 PM EDT Office Visit Pulmonary Medicine [address] [place] [address] Mirlande Funez MD [address] [place] [address] Shortness of breath [R06.02] Pulmonary Medicine Comment on above: Shortness of breath [R06.02] Start: 10-14-2024 End: 10-14-2024 ambulatory 10/14/2024 11:15 AM EDT Results Only [place] [place] [facility] Laboratory [address] [place] [address] PT/INR [place] [facility] Laboratory Comment on above: PT/INR Start: 10-11-2024 End: 10-11-2024 Patient encounter procedure 10/11/2024 1:00 PM EDT Office Visit Podiatry [address] [place] [address] Gayle Green [address] [place] [address] 10 week follow up nail care Podiatry Comment on above: 10 week follow up nail care Start: 10-05-2024 End: 10-05-2024 ambulatory 10/05/2024 11:00 AM EDT Results Only [place] [facility] Laboratory [address] [place] [address] INR [facility] [place] [facility] Laboratory Comment on above: INR Start: 10-04-2024 End: 10-04-2024 Patient encounter procedure 10/04/2024 2:00 PM EDT Office Visit Integrative Medicine [address] [place] [address] Walt Yang R Ac [address] [place] [address] ACUPUNCTURE Integrative Medicine Comment on above: ACUPUNCTURE Start: 09-21-2024 End: 09-21-2024 ambulatory 09/21/2024 11:30 AM EDT Results Only Alena Fernandezwn [facility] Laboratory [address] [place] [address] lab-INR [place] [facility] Laboratory Comment on above: lab-INR Start: 09-20-2024 End: 09-20-2024 Patient encounter procedure 09/20/2024 2:00 PM EDT Office Visit Integrative Medicine [address] [place] [address] Walt Yang R Ac [address] [place] [address] ACUPUNCTURE Integrative Medicine Comment on above: ACUPUNCTURE Start: 09-19-2024 End: 12-19-2024 CBC W Auto Differential panel - Blood COMPLETE BLOOD COUNT AND DIFFERENTIAL Lab Routine Encounter for therapeutic drug monitoring Expected: 09/19/2024, Expires: 12/19/2024 [facility] Work Phone: Comment on above: Expected: 09/19/2024, Expires: Start: 09-19-2024 End: 12-19-2024 Comprehensive metabolic 2000 panel - Serum or Plasma COMPREHENSIVE METABOLIC PANEL Lab Routine Encounter for therapeutic drug monitoring Expected: 09/19/2024, Expires: 12/19/2024 [facility] Comment on above: Expected: 09/19/2024, Expires: Start: 09-19-2024 End: 12-19-2024 Hemoglobin A1c in Blood HEMOGLOBIN A1C Lab Routine IFG (impaired fasting glucose) Expected: 09/19/2024, Expires: 12/19/2024 [facility] Comment on above: Expected: 09/19/2024, Expires: Start: 09-19-2024 End: 12-19-2024 TOXICOLOGY SCREEN, ROUTINE URINE TOXICOLOGY SCREEN, ROUTINE URINE Lab Routine Encounter for therapeutic drug monitoring Expected: 09/19/2024, Expires: 12/19/2024 [facility] Comment on above: Expected: 09/19/2024, Expires: Start: 09-14-2024 Annual PCP Team Chronic Disease Visit Annual PCP Team Chronic Disease Visit [facility] Start: 09-14-2024 BP Controlled (<130/80) BP Controlled (<130/80) [facility] Start: 09-08-2024 End: 09-08-2024 Patient encounter procedure 09/08/2024 2:00 PM EDT Office Visit Integrative Medicine [address] [place] [address] Walt Yang R [address] [place] [address] ACUPUNCTURE Integrative Medicine Comment on above: ACUPUNCTURE Start: 09-07-2024 End: 09-07-2024 ambulatory 09/07/2024 11:30 AM EDT Results Only Alena Fernandezwn [facility] Laboratory [address] [place] [address] inr [facility] Laboratory Comment on above: inr Start: 08-24-2024 Annual PCP Team Chronic Disease Visit Annual PCP Team Chronic Disease Visit [facility] Start: 08-24-2024 BP Controlled (<130/80) BP Controlled (<130/80) [facility] Start: 08-24-2024 End: 08-24-2024 ambulatory 08/24/2024 11:00 AM EDT Results Only [place] [facility] Laboratory [address] [place] [address] INR [facility] Laboratory Comment on above: INR Start: 08-23-2024 End: 08-23-2024 Patient encounter procedure 08/23/2024 2:00 PM EDT Office Visit Integrative Medicine [address] [place] [address] Walt Yang R Ac [address] [place] [address] ACUPUNCTURE Integrative Medicine Comment on above: ACUPUNCTURE Start: 08-15-2024 End: 08-15-2024 Patient encounter procedure Internal Med sean [place] Comment on above: Medicare wellness exam Start: 08-11-2024 End: 08-11-2024 Patient encounter procedure Ophthalmolog y Comment on above: Vision changes Start: 08-10-2024 End: 08-10-2024 ambulatory 08/10/2024 11:00 AM EDT Results Only Alena Mike [facility] Laboratory [address] [place] [address] INR [place] [facility] Laboratory Comment on above: INR Start: 08-09-2024 BP Controlled (<130/80) BP Controlled (<130/80) [facility] Start: 08-09-2024 End: 08-09-2024 Patient encounter procedure 08/09/2024 2:00 PM EDT Office Visit Integrative Medicine [address] [place] [address] Walt Yang R [address] [place] [address] ACUPUNCTURE Integrative Medicine Comment on above: ACUPUNCTURE Start: 08-08-2024 End: 11-07-2024 Creatinine and Glomerular filtration rate.predicted panel - Serum, Plasma or Blood CREATININE BLD Lab Routine Shortness of breath Expected: 08/08/2024, Expires: 11/07/2024 [facility] Comment on above: Expected: 08/08/2024, Expires: Start: 08-08-2024 End: 08-08-2024 Patient encounter procedure 08/08/2024 1:00 PM EDT Office Visit Cardiology [address] [place] [address] Sunny Mercedes MD [address] [facility] [address] [place], [place] [id number] 1 yr follow up Cardiology Comment on above: 1 yr follow up Start: 08-04-2024 End: 08-04-2024 ambulatory PUL[facility] Comment on above: Shortness of breath [R06.02] Start: 07-28-2024 End: 07-28-2024 Patient encounter procedure Podiatry Comment on above: 10 week follow up nail care Start: 07-27-2024 End: 07-27-2024 ambulatory 07/27/2024 11:15 AM EDT Results [facility] [address] [place] [address] Comment on above: INR Start: 07-26-2024 End: 07-26-2024 Patient encounter procedure Integrative Medicine Comment on above: Chronic lower back pain. Sign AFR* Start: 07-26-2024 Annual PCP Team Chronic Disease Visit Annual PCP Team Chronic Disease Visit [facility] Start: 07-26-2024 BP Controlled (<130/80) BP Controlled (<130/80) [facility] Start: 07-25-2024 End: 07-25-2024 Patient encounter procedure 07/25/2024 11:20 AM EDT Office Visit Internal Medicine [facility] [address] [place] [address] Zeny Lam APRN.COMPUTER TECHNOLOGY TRAINER [address] [place] [address] follow up stress test results Internal Medicine Leopold Comment on above: follow up stress test results Start: 07-20-2024 BP Controlled (<130/80) BP Controlled (<130/80) [facility] Start: 07-18-2024 End: 07-18-2024 Nursing evaluation of patient and report 07/18/2024 8:45 AM EDT Nurse Visit Cardiology [address] [place] [address] Wstr, Nurse Card [address] [place] [address] : Shortness of breath [R06.02] Cardiology Comment on above: : Shortness of breath [R06.02] Start: 07-18-2024 End: 07-18-2024 Patient encounter procedure Nuclear Medi cine Comment on above: : Shortness of breath [R06.02] Start: 07-17-2024 Annual PCP Team Chronic Disease Visit Annual PCP Team Chronic Disease Visit [facility] Start: 07-17-2024 BP Controlled (<130/80) BP Controlled (<130/80) [facility] Start: 07-13-2024 End: 07-13-2024 ambulatory 07/13/2024 11:00 AM EDT Results Only [place]ena Mike [facility] Laboratory [address] [place] [address] LABS Leopoldrajinder Fernandezwn [facility] Laboratory Comment on above: LABS Start: 07-12-2024 Covid-19 Vaccine ( season) Covid-19 Vaccine ( season) [facility] Start: 06-29-2024 End: 06-29-2024 ambulatory 06/29/2024 11:30 AM EDT Results Only [place] Mike [facility] Laboratory [address] [place] [address] PT INR [place] [facility] Laboratory Comment on above: PT INR Start: 06-28-2024 Annual PCP Team Chronic Disease Visit Annual PCP Team Chronic Disease Visit [facility] Start: 06-28-2024 BP Controlled (<130/80) BP Controlled (<130/80) [facility] Start: 06-15-2024 End: 06-15-2024 ambulatory 06/15/2024 11:30 AM EDT Results Only [place] Mike [facility] Laboratory [address] [place] [address] PT/INR Alena [place] [facility] Laboratory Comment on above: PT/INR Start: 06-14-2024 BP Controlled (<130/80) BP Controlled (<130/80) [facility] Start: 06-13-2024 End: 06-13-2024 Patient encounter procedure Cardiology Comment on above: 1 yr follow up Start: 06-08-2024 End: 06-08-2024 Patient encounter procedure 06/08/2024 3:00 PM EST Office Visit Internal Medicine [place] [address] [place] [address] Zeny Lam APRN.COMPUTER TECHNOLOGY TRAINER [address] [place] [address] discuss stress test ordered Internal Medicine Leopold Comment on above: discuss stress test ordered Start: 06-01-2024 End: 06-01-2024 ambulatory 06/01/2024 11:00 AM EST Results Only [place] Mike [facility] Laboratory [address] [place] [address] INR [facility] Laboratory Comment on above: INR Start: 05-26-2024 BP Controlled (<130/80) BP Controlled (<130/80) [facility] Start: 05-24-2024 End: 05-24-2024 Patient encounter procedure Vascular Luis melvina Comment on above: 1 yr follow up CAROTID , SEE DR. NETO HWANG AFTER Start: 05-19-2024 End: 05-19-2024 Patient encounter procedure 05/19/2024 1:30 PM EST Office Visit Podiatry [address] [place] [address] Gayle Green [address] [address] Neuropathy Podiatry Comment on above: Neuropathy Start: 05-18-2024 Annual PCP Team Chronic Disease Visit Annual PCP Team Chronic Disease Visit [facility] Start: 05-18-2024 BP Controlled (<130/80) BP Controlled (<130/80) [facility] Start: 05-18-2024 End: 05-18-2024 ambulatory 05/18/2024 11:30 AM EST Results Only [place] Mike [facility] Laboratory [address] [place] [address] INR [facility] Laboratory Comment on above: INR Start: 05-17-2024 End: 05-17-2024 Patient encounter procedure 05/17/2024 1:40 PM EST Office Visit Family Medicine [place]opold [address] [place] [address] Teri Gruber APRN.COMPUTER TECHNOLOGY TRAINER [address] [place] [address] 3 month medication follow up Family Medicine [place] Comment on above: 3 month medication follow up Start: 05-11-2024 End: 05-11-2024 ambulatory 05/11/2024 11:15 AM EST Results Only Alena Mike [facility] Laboratory [address] [place] [address] INR [place] [facility] Laboratory Comment on above: INR Start: 05-07-2024 DIABETES SCREEN DIABETES SCREEN [facility] Start: 04-26-2024 End: 07-26-2024 Magnesium [Mass/volume] in Serum or Plasma MAGNESIUM Lab Routine Side effect of medication Expected: 04/26/2024 (Approximate), Expires: 07/26/2024 [facility] Work Phone: Comment on above: Expected: 04/26/2024 (Approximate), Expi res: 07/26/2024 Start: 04-26-2024 End: 04-26-2024 ambulatory [facility] Laboratory Comment on above: Lab Start: 04-08-2024 End: 04-08-2024 ambulatory 04/08/2024 11:30 AM EST Results Only [place] [facility] Laboratory [address] [place] [address] INR [facility] Laboratory Comment on above: INR Start: 04-06-2024 Advance Directive Discussion Advance Directive Discussion [facility] Start: 03-24-2024 Annual PCP Team Chronic Disease Visit Annual PCP Team Chronic Disease Visit [facility] Start: 03-24-2024 BP Controlled (<130/80) BP Controlled (<130/80) [facility] Start: 03-24-2024 End: 03-24-2024 ambulatory 03/24/2024 11:15 AM EST Results Only Leopold[place] [facility] Laboratory [address] [place] [address] Labs [facility] Laboratory Comment on above: Labs Start: 03-10-2024 End: 03-10-2024 ambulatory 03/10/2024 11:15 AM EST Results Only Alena [place] [facility] Laboratory [address] [place] [address] Lab [facility] Laboratory Comment on above: Lab Start: 02-29-2024 End: 02-29-2024 Patient encounter procedure 02/29/2024 11:40 AM EST Appointment Cat Scan [address] [place] [address] Primary hypertension [I10]; Dizziness [R42] Cat Scan Comment on above: Primary hypertension [I10]; Dizziness [R 42] Start: 02-26-2024 End: 02-26-2024 Patient encounter procedure 02/26/2024 2:00 PM EST Office Visit Internal Medicine Leopold [address] [facility] [place] [address] Zeny Lam APRN.COMPUTER TECHNOLOGY TRAINER [address] [place] [address] 5 month follow up Internal Medicine [place] Comment on above: 5 month follow up Start: 02-25-2024 BP Controlled (<130/80) BP Controlled (<130/80) [facility] Start: 02-23-2024 End: 02-23-2024 ambulatory 02/23/2024 11:00 AM EST Results Only Alena [place] [facility] Laboratory [address] [place] [address] Lab [facility] Laboratory Comment on above: Lab Start: 02-15-2024 End: 02-15-2024 Patient encounter procedure 02/15/2024 2:20 PM EST Office Visit Internal Medicine [place] [address] [facility] [place] [address] Zeny Lam APRN.COMPUTER TECHNOLOGY TRAINER [address] [place] [address] 5 month follow up Internal Medicine Leopold Comment on above: 5 month follow up Start: 02-09-2024 End: 02-09-2024 ambulatory 02/09/2024 11:00 AM EST Results Only [place] [facility] Laboratory [address] [place] [address] lab [facility] Laboratory Comment on above: lab Start: 02-04-2024 Covid-19 Vaccine () Covid-19 Vaccine () [facility] Start: 02-04-2024 Covid-19 Vaccine () Covid-19 Vaccine () [facility] Start: 01-26-2024 End: 01-26-2024 ambulatory 01/26/2024 11:00 AM EDT Results Only Alena Mike [facility] Laboratory [address] [place] [address] Recurrent pulmonary embolism (HCC) [I26.99] Al[place] [facility] Laboratory Comment on above: Recurrent pulmonary embolism (HCC) [I26. 99] Start: 01-24-2024 Annual PCP Team Chronic Disease Visit Annual PCP Team Chronic Disease Visit [facility] Start: 01-24-2024 BP Controlled (<130/80) BP Controlled (<130/80) [facility] Start: 01-15-2024 End: 01-15-2024 Patient encounter procedure 01/15/2024 11:20 AM EDT Office Visit Internal Medicine [place] [address] [facility] [place] [address] Zeny Lam APRN.COMPUTER TECHNOLOGY TRAINER [address] [place] [address] [facility] Follow up 01/08/2024 Internal Medicine Leopold Comment on above: [facility] Follow up 01/08/2024 Start: 01-14-2024 Annual PCP Team Chronic Disease Visit Annual PCP Team Chronic Disease Visit [facility] Start: 01-14-2024 BP Controlled (<130/80) BP Controlled (<130/80) [facility] Start: 01-12-2024 End: 01-12-2024 ambulatory 01/12/2024 11:30 AM EDT Results Only Al[place] Mike [facility] Laboratory [address] [place] [address] Recurrent pulmonary embolism (HCC) [I26.99] Alena Mike [facility] Laboratory Comment on above: Recurrent pulmonary embolism (HCC) [I26. 99] Start: 01-06-2024 End: 01-06-2024 Patient encounter procedure 01/06/2024 11:20 AM EDT Office Visit Internal Medicine [place] [address] [facility] [place] [address] Zeny Lam APRN.COMPUTER TECHNOLOGY TRAINER [address] [place] [address] sleeping 14 hours a day, cold sweats, short of breath, fatigued, changes in bowel habits (reading things signs of heart attack and colon cancer) Internal Medicine Leopold Comment on above: sleeping 14 hours a day, cold sweats, sh ort of breath, fatigued, changes in bowel habits (reading things signs of heart attack and colon cancer) Start: 01-05-2024 End: 01-05-2024 ambulatory 01/05/2024 11:00 AM EDT Results Only [place] [facility] Laboratory [address] [place] [address] Vitamin D deficiency [E55.9]- [facility] LOC [facility] Laboratory Comment on above: Vitamin D deficiency [E55.9]- [facility] LOC Start: 01-01-2024 End: 01-01-2024 ambulatory 01/01/2024 11:15 AM EDT Results Only [place] [facility] Laboratory [address] [place] [address] INR [place] [facility] Laboratory Comment on above: INR Start: 12-30-2023 Annual PCP Team Chronic Disease Visit Annual PCP Team Chronic Disease Visit [facility] Start: 12-30-2023 BP Controlled (<130/80) BP Controlled (<130/80) [facility] Start: 12-28-2023 End: 12-28-2023 ambulatory 12/28/2023 11:15 AM EDT Results Only [place] [facility] Laboratory [address] [place] [address] INR [place] [facility] Laboratory Comment on above: INR Start: 12-18-2023 End: 12-18-2023 ambulatory 12/18/2023 11:30 AM EDT Results Only [place] [facility] Laboratory [address] [place] [address] INR [place] [facility] Laboratory Comment on above: INR Start: 12-14-2023 End: 12-14-2023 Patient encounter procedure 12/14/2023 1:40 PM EDT Office Visit Internal Medicine Leopold [address] [facility] [place] [place] [address] Zeny Lam APRN.COMPUTER TECHNOLOGY TRAINER [address] [place] [address] Tired; lighheaded x 2 weeks Internal Medicine [place] Comment on above: Tired; lighheaded x 2 weeks Start: 12-08-2023 End: 12-08-2023 ambulatory 12/08/2023 11:30 AM EDT Results Only [place] [facility] [address] [place] [address] PT/INR Lab [facility] Comment on above: PT/INR Lab Start: 12-06-2023 Covid-19 Vaccine () Covid-19 Vaccine () [facility] Start: 12-06-2023 Influenza vaccination Influenza Vaccine (#1) [facility] Start: 11-25-2023 ANNUAL PCP TEAM CHRONIC DISEASE VISIT ANNUAL PCP TEAM CHRONIC DISEASE VISIT [facility] Start: 11-24-2023 End: 11-24-2023 ambulatory 11/24/2023 11:00 AM EDT Results Only [place] [facility] Laboratory [address] [place] [address] lab [facility] Comment on above: lab Start: 11-16-2023 End: 11-16-2023 Patient encounter procedure 11/16/2023 1:30 PM EDT Office Visit Urology [address] [place] [address] Micah Portillo APRN.COMPUTER TECHNOLOGY TRAINER, DNP [address] [facility] [place] [address] 3 MONTH FOLLOW UP Urology Comment on above: 3 MONTH FOLLOW UP Start: 11-12-2023 End: 11-12-2023 Patient encounter procedure [facility] Comment on above: ACUPUNCTURE SIGN AFR* Start: 11-10-2023 End: 11-10-2023 ambulatory 11/10/2023 11:00 AM EDT Results Only [place] [facility] Laboratory [address] [place] [address] lab [place] [facility] Laboratory Comment on above: lab Start: 10-30-2023 End: 10-30-2023 ambulatory 10/30/2023 11:30 AM EDT Results Only [place] [facility] Draw Station [address] [place] [address] lab [place] [facility] Draw Station Comment on above: lab Start: 10-29-2023 BP CONTROLLED (<130/80) BP CONTROLLED (<130/80) [facility] Start: 10-24-2023 Covid-19 Vaccine () Covid-19 Vaccine () [facility] Start: 10-20-2023 End: 10-20-2023 ambulatory 10/20/2023 11:15 AM EDT Results Only [place] Mahajann [facility] Laboratory [address] [place] [address] Recurrent pulmonary embolism (HCC) [I26.99] [place] [facility] Laboratory Comment on above: Recurrent pulmonary embolism (HCC) [I26. 99] Start: 10-05-2023 End: 10-05-2023 ambulatory 10/05/2023 11:15 AM EDT Results Only [place] [facility] Laboratory [address] [place] [address] Recurrent pulmonary embolism (HCC) [I26.99] [place] [facility] Laboratory Comment on above: Recurrent pulmonary embolism (HCC) [I26. 99] Start: 09-23-2023 End: 09-23-2023 ambulatory 09/23/2023 11:30 AM EDT Results Only [place] [facility] Laboratory [address] [place] [address] PROTHROMBIN TIME/PT [PT] [place] [facility] Laboratory Comment on above: PROTHROMBIN TIME/PT [PT] Start: 09-15-2023 End: 09-15-2023 Patient encounter procedure 09/15/2023 1:20 PM EDT Office Visit Internal Medicine [place] [address] [facility] [place] [address] Zeny Lam APRN.COMPUTER TECHNOLOGY TRAINER [address] [place] [address] physical and 6 month follow up Internal Medicine [place] Comment on above: physical and 6 month follow up Start: 09-11-2023 End: 09-11-2023 ambulatory 09/11/2023 11:30 AM EDT Results Only [place] [facility] Laboratory [address] [place] [address] LABS [place] [facility] Laboratory Comment on above: LABS Start: 09-08-2023 End: 09-08-2023 ambulatory 09/08/2023 11:00 AM EDT Results Only [place] [facility] Laboratory [address] [place] [address] Encounter for drug monitoring Z51.81 and Vitamin D deficiency E55.9 [place] [facility] Laboratory Comment on above: Encounter for drug monitoring Z51.81 and Vitamin D deficiency E55.9 Start: 09-07-2023 End: 09-07-2023 Patient encounter procedure 09/07/2023 11:20 AM EDT Office Visit [facility] [place] [address] [address] [place] [address] [place] [address] Last OV 11/10/2022 [facility] [place] Comment on above: Last OV 11/10/2022 Start: 09-04-2023 End: 09-04-2023 ambulatory 09/04/2023 11:30 AM EDT Results Only [place] [facility] Laboratory [address] [place] [address] Recurrent pulmonary embolism (HCC) [I26.99] [place] [facility] Laboratory Comment on above: Recurrent pulmonary embolism (HCC) [I26. 99] Start: 08-27-2023 End: 08-27-2023 Patient encounter procedure 08/27/2023 1:30 PM EDT Office Visit [facility] [address] [place] [address] Irene Moraes MD [address] [place], [place] [id number] NEW CONSULT [facility] Comment on above: NEW CONSULT Start: 08-25-2023 End: 08-25-2023 Patient encounter procedure 08/25/2023 9:40 AM EDT Office Visit Internal Medicine [place] [address] [place], [place] [id number] Zeny Lam APRN.COMPUTER TECHNOLOGY TRAINER [address] [place], [place] [id number] follow up Internal Medicine [place] Comment on above: follow up Start: 08-23-2023 ANNUAL PCP TEAM CHRONIC DISEASE VISIT ANNUAL PCP TEAM CHRONIC DISEASE VISIT [facility] Start: 08-23-2023 BP CONTROLLED (<130/80) BP CONTROLLED (<130/80) [facility] Start: 08-21-2023 End: 08-21-2023 ambulatory 08/21/2023 11:15 AM EDT Results Only [place] [facility] [address] [place], [place] [address] Recurrent pulmonary embolism (HCC) [I26.99] [facility] Comment on above: Recurrent pulmonary embolism (HCC) [I26. 99] Start: 08-19-2023 Covid-19 Vaccine () Covid-19 Vaccine () [facility] Start: 08-14-2023 End: 08-14-2023 Patient encounter procedure 08/14/2023 1:50 PM EDT Office Visit Cardiology [address] [place], [place] [id number] Primary hypertension [I10] Cardiology Comment on above: Primary hypertension [I10] Start: 08-14-2023 End: 08-14-2023 ambulatory 08/14/2023 11:15 AM EDT Results Only [place] [facility] Draw Station [address] [facility] [place] [address] PROTHROMBIN TIME/PT [PT] [place] [facility] Draw Station Comment on above: PROTHROMBIN TIME/PT [PT] Start: 08-12-2023 ANNUAL PCP TEAM CHRONIC DISEASE VISIT ANNUAL PCP TEAM CHRONIC DISEASE VISIT [facility] Start: 08-12-2023 BP CONTROLLED (<130/80) BP CONTROLLED (<130/80) [facility] Start: 08-12-2023 End: 08-12-2023 ambulatory 08/12/2023 11:15 AM EDT Results Only [place] [facility] Laboratory [address] [place] [address] PROTHROMBIN TIME/PT [PT] [place] [facility] Laboratory Comment on above: PROTHROMBIN TIME/PT [PT] Start: 08-10-2023 End: 08-10-2023 Patient encounter procedure 08/10/2023 1:00 PM EDT Office Visit Urology [address] [address] Micah Portillo APRN.COMPUTER TECHNOLOGY TRAINER, DNP [address] [facility] [place] [address] BPH with obstruction/lower urinary tract symptoms [N40.1, N13.8] Urology Comment on above: BPH with obstruction/lower urinary tract symptoms [N40.1, N13.8] Start: 07-30-2023 End: 07-30-2023 ambulatory 07/30/2023 11:15 AM EDT Results Only [place] [facility] Laboratory [address] [place] [address] PROTHROMBIN TIME/PT [PT] [place] [facility] Laboratory Comment on above: PROTHROMBIN TIME/PT [PT] Start: 07-13-2023 End: 10-12-2023 25-hydroxyvitamin D3 [Mass/volume] in Serum or Plasma VITAMIN D 25 HYDROXY Lab Routine Encounter for therapeutic drug monitoring Vitamin D deficiency Expected: 07/13/2023, Expires: 10/12/2023 [facility] Work Phone: Comment on above: Expected: 07/13/2023, Expires: Start: 07-13-2023 End: 10-12-2023 CBC W Auto Differential panel - Blood CBC + DIFF Lab Routine Encounter for therapeutic drug monitoring Expected: 07/13/2023, Expires: 10/12/2023 [facility] Work Phone: Comment on above: Expected: 07/13/2023, Expires: Start: 07-13-2023 End: 10-12-2023 Comprehensive metabolic 2000 panel - Serum or Plasma COMP METABOLIC PANEL Lab Routine Encounter for therapeutic drug monitoring Expected: 07/13/2023, Expires: 10/12/2023 [facility] Work Phone: Comment on above: Expected: 07/13/2023, Expires: Start: 07-13-2023 End: 10-12-2023 Lipid 1996 panel - Serum or Plasma LIPID PANEL BASIC Lab Routine Encounter for therapeutic drug monitoring Mixed hyperlipidemia Expected: 07/13/2023, Expires: 10/12/2023 [facility] Work Phone: Comment on above: Expected: 07/13/2023, Expires: Start: 07-13-2023 End: 10-12-2023 Magnesium [Mass/volume] in Serum or Plasma MAGNESIUM BLD Lab Routine Encounter for therapeutic drug monitoring Expected: 07/13/2023, Expires: 10/12/2023 [facility] Work Phone: Comment on above: Expected: 07/13/2023, Expires: Start: 06-02-2023 ANNUAL PCP TEAM CHRONIC DISEASE VISIT ANNUAL PCP TEAM CHRONIC DISEASE VISIT [facility] Start: 06-02-2023 End: 09-01-2023 Hemoglobin A1c in Blood HGB A1C Lab Routine Impaired fasting glucose Expected: 06/02/2023, Expires: 09/01/2023 [facility] Work Phone: Comment on above: Expected: 06/02/2023, Expires: Start: 04-06-2023 Advance Directive Discussion Advance Directive Discussion [facility] Start: 04-06-2023 Behavioral Health Screening Behavioral Health Screening [facility] Start: 04-06-2023 Depression Assessment Depression Assessment [facility] Start: 02-24-2023 End: 04-26-2023 Basic metabolic 2000 panel - Serum or Plasma BASIC METABOLIC PNL Lab Routine Kidney insufficiency Expected: 02/24/2023, Expires: 04/26/2023 [facility] Work Phone: Comment on above: Expected: 02/24/2023, Expires: 4 Start: 02-24-2023 End: 04-26-2023 CBC panel - Blood by Automated count CBC Lab Routine Kidney insufficiency Expected: 02/24/2023, Expires: 04/26/2023 [facility] Work Phone: Comment on above: Expected: 02/24/2023, Expires: 4 Start: 02-24-2023 End: 04-26-2023 Hemoglobin A1c in Blood HGB A1C Lab Routine Impaired fasting glucose Expected: 02/24/2023, Expires: 04/26/2023 [facility] Work Phone: Comment on above: Expected: 02/24/2023, Expires: 4 Start: 02-03-2023 BP CONTROLLED (<130/80) BP CONTROLLED (<130/80) [facility] Start: 12-05-2022 Influenza vaccination INFLUENZA (#1) [facility] Start: 11-13-2022 Adult depression screening assessment DEPRESSION SCREENING [facility] Start: 11-13-2022 ANNUAL PCP TEAM CHRONIC DISEASE VISIT ANNUAL PCP TEAM CHRONIC DISEASE VISIT [facility] Start: 11-13-2022 BP CONTROLLED (<130/80) BP CONTROLLED (<130/80) [facility] Start: 10-16-2022 ANNUAL PCP TEAM CHRONIC DISEASE VISIT ANNUAL PCP TEAM CHRONIC DISEASE VISIT [facility] Start: 09-23-2022 ANNUAL PCP TEAM CHRONIC DISEASE VISIT ANNUAL PCP TEAM CHRONIC DISEASE VISIT [facility] Start: 08-30-2022 End: 10-30-2022 Basic metabolic 2000 panel - Serum or Plasma BASIC METABOLIC PNL Lab Routine Impaired fasting glucose Expected: 08/30/2022, Expires: 10/30/2022 [facility] Work Phone: Comment on above: Expected: 08/30/2022, Expires: 3 Start: 08-30-2022 End: 10-30-2022 Hemoglobin A1c in Blood HGB A1C Lab Routine Impaired fasting glucose Expected: 08/30/2022, Expires: 10/30/2022 [facility] Work Phone: Comment on above: Expected: 08/30/2022, Expires: 3 Start: 08-22-2022 ANNUAL PCP TEAM CHRONIC DISEASE VISIT ANNUAL PCP TEAM CHRONIC DISEASE VISIT [facility] Start: 08-04-2022 End: 10-04-2022 Comprehensive metabolic 2000 panel - Serum or Plasma COMP METABOLIC PANEL Lab Routine Recurrent pulmonary embolism (HCC) Mixed hyperlipidemia Primary hypertension Expected: 08/04/2022, Expires: 10/04/2022 [facility] Work Phone: Comment on above: Expected: 08/04/2022, Expires: 3 Start: 08-04-2022 End: 10-04-2022 Hematocrit [Volume Fraction] of Blood HEMATOCRIT (HCT) Lab Routine Recurrent pulmonary embolism (HCC) Mixed hyperlipidemia Primary hypertension Expected: 08/04/2022, Expires: 10/04/2022 [facility] Work Phone: Comment on above: Expected: 08/04/2022, Expires: 3 Start: 08-04-2022 End: 10-04-2022 Hemoglobin [Mass/volume] in Blood HEMOGLOBIN (HGB) Lab Routine Recurrent pulmonary embolism (HCC) Mixed hyperlipidemia Primary hypertension Expected: 08/04/2022, Expires: 10/04/2022 [facility] Work Phone: Comment on above: Expected: 08/04/2022, Expires: 3 Start: 08-04-2022 End: 10-04-2022 Lipid 1996 panel - Serum or Plasma LIPID PANEL BASIC Lab Routine Recurrent pulmonary embolism (HCC) Mixed hyperlipidemia Primary hypertension Expected: 08/04/2022, Expires: 10/04/2022 [facility] Work Phone: Comment on above: Expected: 08/04/2022, Expires: 3 Start: 07-03-2022 ANNUAL PCP TEAM CHRONIC DISEASE VISIT ANNUAL PCP TEAM CHRONIC DISEASE VISIT [facility] Start: 07-03-2022 BP CONTROLLED (<130/80) BP CONTROLLED (<130/80) [facility] Start: 05-16-2022 ANNUAL PCP TEAM CHRONIC DISEASE VISIT ANNUAL PCP TEAM CHRONIC DISEASE VISIT [facility] Start: 05-16-2022 BP CONTROLLED (<130/80) BP CONTROLLED (<130/80) [facility] Start: 05-16-2022 End: 07-16-2022 CBC panel - Blood by Automated count CBC Lab Routine penitentiary (current) use of anticoagulants Expected: 05/16/2022, Expires: 07/16/2022 [facility] Work Phone: Comment on above: Expected: 05/16/2022, Expires: 3 Start: 05-16-2022 End: 07-16-2022 Comprehensive metabolic 2000 panel - Serum or Plasma COMP METABOLIC PANEL Lab Routine Mixed hyperlipidemia Expected: 05/16/2022, Expires: 07/16/2022 [facility] Work Phone: Comment on above: Expected: 05/16/2022, Expires: 3 Start: 05-16-2022 End: 07-16-2022 Lipid 1996 panel - Serum or Plasma LIPID PANEL BASIC Lab Routine Mixed hyperlipidemia Expected: 05/16/2022, Expires: 07/16/2022 [facility] Work Phone: Comment on above: Expected: 05/16/2022, Expires: 3 Start: 05-16-2022 End: 07-16-2022 PSA/PROSTSPECAG SCRN PSA/PROSTSPECAG SCRN Lab Routine Screening for prostate cancer Expected: 05/16/2022, Expires: 07/16/2022 [facility] Work Phone: Comment on above: Expected: 05/16/2022, Expires: 3 Start: 04-06-2022 ADVANCE DIRECTIVE DISCUSSION ADVANCE DIRECTIVE DISCUSSION [facility] Start: 04-06-2022 DEPRESSION ASSESSMENT DEPRESSION ASSESSMENT [facility] Start: 03-24-2022 Patient discharge [facility] Work Phone: Start: 02-03-2022 End: 04-05-2022 TOX SCREEN ROUT UR TOX SCREEN ROUT UR Lab Routine Chronic low back pain without sciatica, unspecified back pain laterality Expected: 02/03/2022, Expires: 04/05/2022 [facility] Work Phone: Comment on above: Expected: 02/03/2022, Expires: Start: 12-05-2021 Influenza vaccination INFLUENZA (#1) [facility] Start: 07-09-2021 Adult depression screening assessment DEPRESSION SCREENING [facility] Start: 04-06-2021 ADVANCE DIRECTIVE DISCUSSION ADVANCE DIRECTIVE DISCUSSION [facility] Start: 04-06-2021 DEPRESSION ASSESSMENT DEPRESSION ASSESSMENT [facility] Start: 10-27-2019 BP CONTROLLED (<130/80) BP CONTROLLED (<130/80) [facility] Start: 08-30-1963 Anxiety Screening Anxiety Screening [facility] Start: 08-30-1963 Depression Screening Depression Screening [facility] End: 09-14-2024 25-hydroxyvitamin D3 [Mass/volume] in Serum or Plasma VITAMIN D 25 HYDROXY Lab Routine Vitamin D deficiency Every 3 months for 6 Occurrences starting 09/15/2023 until 09/14/2024 [facility] Comment on above: Every 3 months for 6 Occurrences startin g 09/15/2023 until 09/14/2024 BACH SCREENING TEST BACH SCREENI NG TEST Procedures Routine Primary hypertension Ordered: 07/25/2024 [facility] Comment on above: Ordered: 07/25/2024 BACH SCREENING TEST BACH SCREENI NG TEST Procedures Routine Medicare annual wellness visit, subsequent MCI (mild cognitive impairment) Ordered: 08/15/2024 [facility] Work Phone: Comment on above: Ordered: 08/15/2024 BLADDER SCAN BLADDER SCAN Procedures Routine Benign prostatic hyperplasia with nocturia Ordered: 08/10/2023 [facility] Work Phone: Comment on above: Ordered: 08/10/2023 End: 09-14-2024 CBC W Auto Differential panel - Blood COMPLETE BLOOD COUNT AND DIFFERENTIAL Lab Routine Primary hypertension Encounter for therapeutic drug monitoring Every 3 months for 6 Occurrences starting 09/15/2023 until 09/14/2024 [facility] Work Phone: Comment on above: Every 3 months for 6 Occurrences startin g 09/15/2023 until 09/14/2024 End: 09-14-2024 Comprehensive metabolic 2000 panel - Serum or Plasma COMPREHENSIVE METABOLIC PANEL Lab Routine Primary hypertension Encounter for therapeutic drug monitoring Every 3 months for 6 Occurrences starting 09/15/2023 until 09/14/2024 [facility] Comment on above: Every 3 months for 6 Occurrences startin g 09/15/2023 until 09/14/2024 End: 09-07-2025 CT Chest W contrast IV CT CHEST W IVCON Radiology Routine Shortness of breath 1 Occurrences starting 08/08/2024 until 09/07/2025 [facility] Work Phone: Comment on above: 1 Occurrences starting 08/08/2024 until 09/07/2025 End: 03-16-2025 CT Head WO contrast CT BRAIN WO IVCON Radiology Routine Primary hypertension Dizziness 1 Occurrences starting 02/15/2024 until 03/16/2025 [facility] Work Phone: Comment on above: 1 Occurrences starting 02/15/2024 until 03/16/2025 ECG COMPLETE ECG COMPLETE ECG Routine Screening for ischemic heart disease Ordered: 06/08/2023 [facility] Work Phone: Comment on above: Ordered: 06/08/2023 ECG COMPLETE ECG COMPLETE ECG Routine SOB (shortness of breath) Ordered: 01/06/2024 [facility] Work Phone: Comment on above: Ordered: 01/06/2024 End: 07-26-2024 Echocardiography ECHO Cardiology Routine Primary hypertension 1 Occurrences starting 07/27/2023 until 07/26/2024 [facility] Work Phone: Comment on above: 1 Occurrences starting 07/27/2023 until 07/26/2024 End: 09-14-2024 Hemoglobin A1c in Blood HEMOGLOBIN A1C Lab Routine Impaired fasting glucose Every 3 months for 6 Occurrences starting 09/15/2023 until 09/14/2024 [facility] Comment on above: Every 3 months for 6 Occurrences startin g 09/15/2023 until 09/14/2024 End: 02-18-2023 INR in Platelet poor plasma by Coagulation assay INR (POC) Lab Routine Recurrent pulmonary embolism (HCC) Once per month for 99 Occurrences starting 02/19/2022 until 02/18/2023 [facility] Work Phone: Comment on above: Once per month for 99 Occurrences starti ng 02/19/2022 until 02/18/2023 End: 11-07-2023 INR in Platelet poor plasma by Coagulation assay INR (POC) Lab Routine Recurrent pulmonary embolism (HCC) penitentiary (current) use of anticoagulants Once per week for 99 Occurrences starting 11/06/2022 until 11/07/2023 [facility] Work Phone: Comment on above: Once per week for 99 Occurrences startin g 11/06/2022 until 11/07/2023 End: 09-14-2024 LIPID PANEL, NONFASTING LIPID PANEL, NONFASTING Lab Routine Mixed hyperlipidemia Every 3 months for 6 Occurrences starting 09/15/2023 until 09/14/2024 [facility] Comment on above: Every 3 months for 6 Occurrences startin g 09/15/2023 until 09/14/2024 End: 08-24-2025 LUNG DIFFUSION CAPACITY (DLCO) LUNG DIFFUSION CAPACITY (DLCO) PFT Routine Shortness of breath 1 Occurrences starting 07/25/2024 until 08/24/2025 [facility] Work Phone: Comment on above: 1 Occurrences starting 07/25/2024 until 08/24/2025 LUNG DIFFUSION CAPACITY (DLCO) L ADAM DIFFUSION CAPACITY (DLCO) PFT Routine Shortness of breath 08/04/2024 12:22 PM EDT [facility] Work Phone: End: 09-14-2024 Magnesium [Mass/volume] in Serum or Plasma MAGNESIUM Lab Routine Encounter for therapeutic drug monitoring Every 3 months for 6 Occurrences starting 09/15/2023 until 09/14/2024 [facility] Comment on above: Every 3 months for 6 Occurrences startin g 09/15/2023 until 09/14/2024 End: 06-16-2024 MR Lumbar spine WO contrast MRI LUMBAR SPINE WO IVCON Radiology Routine Lumbar pain Acute bilateral low back pain without sciatica Fall, subsequent encounter 1 Occurrences starting 05/18/2023 until 06/16/2024 [facility] Work Phone: Comment on above: 1 Occurrences starting 05/18/2023 until 06/16/2024 End: 08-24-2025 NITRIC OXIDE, EXHALED NITRIC OXIDE, EXHALED PFT Routine Shortness of breath 1 Occurrences starting 07/25/2024 until 08/24/2025 [facility] Comment on above: 1 Occurrences starting 07/25/2024 until 08/24/2025 End: 11-19-2025 NITRIC OXIDE, EXHALED NITRIC OXIDE, EXHALED PFT Routine Mild persistent asthma without complication (HCC) 1 Occurrences starting 10/20/2024 until 11/19/2025 [facility] Comment on above: 1 Occurrences starting 10/20/2024 until 11/19/2025 End: 06-16-2025 NM Heart Perfusion W stress and W radionuclide IV NM CARDIAC PERF STRESS/PHARM Radiology Routine Shortness of breath 1 Occurrences starting 05/17/2024 until 06/16/2025 [facility] Work Phone: Comment on above: 1 Occurrences starting 05/17/2024 until 06/16/2025 Patient Education ED Head Injury (Adult) [facility] Work Phone: Patient referral [facility] Work Phone: POST VOID RESIDUAL POST VOID RES IDUAL Procedures Routine Benign prostatic hyperplasia with nocturia Ordered: 11/16/2023 [facility] Work Phone: Comment on above: Ordered: 11/16/2023 End: 12-26-2022 PT panel - Platelet poor plasma by Coagulation assay PROTHROMBIN TIME/PT Lab Routine penitentiary (current) use of anticoagulants Recurrent pulmonary embolism (HCC) 99 Occurrences starting 12/26/2021 until 12/26/2022 [facility] Work Phone: Comment on above: 99 Occurrences starting 12/26/2021 until 12/26/2022 End: 11-07-2023 PT panel - Platelet poor plasma by Coagulation assay PROTHROMBIN TIME/PT Lab Routine Recurrent pulmonary embolism (HCC) penitentiary (current) use of anticoagulants Once per week for 99 Occurrences starting 11/06/2022 until 11/07/2023 [facility] Work Phone: Comment on above: Once per week for 99 Occurrences startin g 11/06/2022 until 11/07/2023 End: 03-19-2024 PT panel - Platelet poor plasma by Coagulation assay PROTHROMBIN TIME/PT Lab Routine Recurrent pulmonary embolism (HCC) Once per week for 53 Occurrences starting 03/20/2023 until 03/19/2024 [facility] Work Phone: Comment on above: Once per week for 53 Occurrences startin g 03/20/2023 until 03/19/2024 End: 03-24-2025 PT panel - Platelet poor plasma by Coagulation assay PROTHROMBIN TIME Lab Routine Recurrent pulmonary embolism (HCC) 99 Occurrences starting 03/24/2024 until 03/24/2025, 1 completed [facility] Work Phone: Comment on above: 99 Occurrences starting 03/24/2024 until 03/24/2025, 1 completed SPINE INTERVENTION PROCEDURE SPI NE INTERVENTION PROCEDURE Procedures Routine Radiculopathy, lumbar region Ordered: 11/12/2022 [facility] Work Phone: Comment on above: Ordered: 11/12/2022 End: 08-24-2025 SPIROMETRY WITH DILATOR IF OBSTRUCTED SPIROMETRY WITH DILATOR IF OBSTRUCTED PFT Routine Shortness of breath 1 Occurrences starting 07/25/2024 until 08/24/2025 [facility] Comment on above: 1 Occurrences starting 07/25/2024 until 08/24/2025 SPIROMETRY WITH DILA TOR IF OBSTRUCTED SPIROMETRY WITH DILATOR IF OBSTRUCTED PFT Routine Shortness of breath 08/04/2024 12:22 PM EDT [facility] Work Phone: End: 05-26-2024 US Carotid arteries - bilateral US CAROTID ARTERIES [facility] Vascular Lab Routine Stenosis of left carotid artery 1 Occurrences starting 05/26/2023 until 05/26/2024 [facility] Work Phone: Comment on above: 1 Occurrences starting 05/26/2023 until 05/26/2024 End: 08-11-2024 US Carotid arteries - bilateral US CAROTID ARTERIES [facility] Vascular Lab Routine Stenosis of left carotid artery 1 Occurrences starting 08/12/2023 until 08/11/2024 [facility] Work Phone: Comment on above: 1 Occurrences starting 08/12/2023 until 08/11/2024 End: 05-24-2025 US Carotid arteries - bilateral US CAROTID ARTERIES [facility] Vascular Lab Routine PAD (peripheral artery disease) ([facility]) 1 Occurrences starting 05/24/2024 until 05/24/2025 [facility] Comment on above: 1 Occurrences starting 05/24/2024 until 05/24/2025 End: 05-26-2024 US Lower extremity artery - bilateral PVR LEG [facility] Vascular Lab Routine PAD (peripheral artery disease) ([facility]) 1 Occurrences starting 05/26/2023 until 05/26/2024 [facility] Work Phone: Comment on above: 1 Occurrences starting 05/26/2023 until 05/26/2024 End: 08-11-2024 US Lower extremity artery - bilateral PVR LEG [facility] Vascular Lab Routine PAD (peripheral artery disease) ([facility]) 1 Occurrences starting 08/12/2023 until 08/11/2024 [facility] Comment on above: 1 Occurrences starting 08/12/2023 until 08/11/2024 End: 05-24-2025 US Lower extremity artery - bilateral PVR LEG [facility] Vascular Lab Routine Stenosis of left carotid artery 1 Occurrences starting 05/24/2024 until 05/24/2025 [facility] Work Phone: Comment on above: 1 Occurrences starting 05/24/2024 until 05/24/2025 End: 03-02-2025 XR Cervical spine AP and Lateral and oblique XR CERV OTHER 4V AP/LAT/OBL Radiology Routine Neck pain 1 Occurrences starting 02/01/2024 until 03/02/2025 [facility] Work Phone: Comment on above: [...] [facility] [...] (MODERNA) Edgarindiana Loaiza Work Phone: [facility] 05-17-2024 COVID-19 vaccine, ag e 12+ yr (MODERNA) Zeny Genaro DIRECTOR OF INCOME TAX.COMPUTER TECHNOLOGY TRAINER Work Phone: [facility] 12-10-2023 COVID-19 original vaccine, booster dose, monovalent (MODERNA) Zeny Genaro DIRECTOR OF INCOME TAX.COMPUTER TECHNOLOGY TRAINER Work Phone: [facility] 12-10-2023 COVID-19 vaccine, ag e 12+ yr (MODERNA) Zeny Genaro DIRECTOR OF INCOME TAX.COMPUTER TECHNOLOGY TRAINER Work Phone: [facility] 11-27-2023 influenza (HD-IIV4) vaccine, age 65+ yr, high dose, quadrivalent, PF (FLUZONE HIGH-DOSE) Zeny Genaro DIRECTOR OF INCOME TAX.COMPUTER TECHNOLOGY TRAINER Work Phone: [facility] 11-27-2023 Seasonal trivalent influenza vaccine, adjuvanted, preservative free Zeny Genaro DIRECTOR OF INCOME TAX.COMPUTER TECHNOLOGY TRAINER Work Phone: [facility] 11-27-2023 influenza virus vacc ine, unspecified formulation [facility] Provider [facility] 06-24-2023 COVID-19 vaccine, ag e 12+ yr, season (MODERNA) Zeny Genaro DIRECTOR OF INCOME TAX.COMPUTER TECHNOLOGY TRAINER Work Phone: [facility] 06-24-2023 COVID-19 vaccine, ag e 12+ yr, bivalent (MODERNA) Zeny Genaro DIRECTOR OF INCOME TAX.COMPUTER TECHNOLOGY TRAINER Work Phone: [facility] 12-29-2022 COVID-19 vaccine, ag e 12+ yr, season (MODERNA) Zeny Genaro DIRECTOR OF INCOME TAX.COMPUTER TECHNOLOGY TRAINER Work Phone: [facility] 12-02-2022 respiratory syncytia l virus (RSV) vaccine, bivalent (ABRYSVO) Mckinley Leal MD Work Phone: [facility] Work Phone: 12-01-2022 influenza (aIIV4) vaccine, age 65+ yr, quadrivalent, PF (FLUAD QUAD) Franc Hills MD Work Phone: [facility] Work Phone: 12-01-2022 influenza virus vacc ine, unspecified formulation Zeny Lam DIRECTOR OF INCOME TAX.COMPUTER TECHNOLOGY TRAINER Work Phone: [facility] 07-31-2022 COVID-19 vaccine, ag e 12+ yr, bivalent (PFIZER-BIONTECH) Franc Hills MD Work Phone: [facility] 06-05-2022 zoster vaccine recombinant Franc Hills MD Work Phone: [facility] Work Phone: 04-07-2022 zoster vaccine recombinant Franc Hills MD Work Phone: [facility] Work Phone: 12-13-2021 COVID-19 vaccine, ag e 12+ yr, bivalent booster (PFIZER-BIONTECH) Sara Older DIRECTOR OF INCOME TAX.COMPUTER TECHNOLOGY TRAINER Work Phone: [facility] 11-12-2021 influenza (aIIV4) vaccine, age 65+ yr, quadrivalent, PF (FLUAD QUAD) Franc Hills MD Work Phone: [facility] 11-12-2021 influenza, injectabl e, quadrivalent, contains preservative Franc Hills MD Work Phone: [facility] Work Phone: 07-03-2021 COVID-19 vaccine, ag e 12+ yr (PFIZER-BIONTECH - PURPLE TOP) Sara Older DIRECTOR OF INCOME TAX.COMPUTER TECHNOLOGY TRAINER Work Phone: [facility] Work Phone: 01-10-2021 tetanus toxoid, redu ankita diphtheria toxoid, and acellular pertussis vaccine, adsorbed Franc Hills MD Work Phone: [facility] Work Phone: 01-01-2021 COVID-19 vaccine, ag e 12+ yr (PFIZER-BIONTECH - PURPLE TOP) Franc Hills MD Work Phone: [facility] Work Phone: 11-13-2020 influenza, high dose seasonal, preservative-free Franc Hills MD Work Phone: [facility] Work Phone: 05-31-2020 COVID-19 vaccine, ag e 12+ yr (PFIZER-BIONTECH - PURPLE TOP) Franc Hills MD Work Phone: [facility] 05-11-2020 COVID-19 vaccine, ag e 12+ yr (PFIZER-BIONTECH - PURPLE TOP) Franc Hills MD Work Phone: [facility] 11-19-2019 influenza, high dose seasonal, preservative-free Franc Hills MD Work Phone: [facility] Work Phone: 12-05-2018 influenza, high dose seasonal, preservative-free Franc Hills MD Work Phone: [facility] Work Phone: 12-05-2018 Seasonal trivalent influenza vaccine, adjuvanted, preservative free Franc Hills MD Work Phone: [facility] Work Phone: 12-14-2017 influenza, high dose seasonal, preservative-free Franc Hills MD Work Phone: [facility] Work Phone: 12-14-2017 Seasonal trivalent influenza vaccine, adjuvanted, preservative free Franc Hills MD Work Phone: [facility] Work Phone: 10-21-2017 tetanus toxoid, redu ankita diphtheria toxoid, and acellular pertussis vaccine, adsorbed Franc Hills MD Work Phone: [facility] Work Phone: 11-26-2016 Seasonal trivalent influenza vaccine, adjuvanted, preservative free Franc Hills MD Work Phone: [facility] Work Phone: 12-05-2015 influenza, injectabl e, quadrivalent, preservative free Franc Hills MD Work Phone: [facility] Work Phone: 12-05-2015 influenza, seasonal, injectable Franc Hills MD Work Phone: [facility] 04-17-2015 pneumococcal conjuga te vaccine, 13 valent Franc Hills MD Work Phone: [facility] 01-04-2015 influenza, high dose seasonal, preservative-free Franc Hills MD Work Phone: [facility] Work Phone: 01-18-2014 influenza, seasonal, injectable Franc Hills MD Work Phone: [facility] 12-19-2013 pneumococcal polysaccharide vaccine, 23 valent Franc Hilsl MD Work Phone: [facility] Work Phone: 12-08-2013 [facility] 12-08-2013 pneumococcal vaccine , unspecified formulation [facility] 12-05-2013 Influenza virus vaccine [facility] 12-05-2013 influenza, seasonal, injectable, preservative free Franc Hills MD Work Phone: [facility] Work Phone: 12-13-2012 influenza virus vacc ine, unspecified formulation Franc iHlls MD Work Phone: [facility] Work Phone: 12-27-2011 influenza virus vacc ine, unspecified formulation Franc Hills MD Work Phone: [facility] Work Phone: 01-04-2011 influenza virus vacc ine, unspecified formulation Franc Hills MD Work Phone: [facility] Work Phone: 01-19-2010 influenza virus vacc ine, unspecified formulation Franc Hills MD Work Phone: [facility] 01-04-2010 pneumococcal polysaccharide vaccine, 23 valent Franc Hills MD Work Phone: [facility] Work Phone: 05-30-2009 tetanus and diphther ia toxoids, adsorbed, preservative free, for adult use (2 Lf of tetanus toxoid and 2 Lf of diphtheria toxoid) Franc Hills MD Work Phone: [facility] Work Phone: 01-08-2009 influenza virus vacc ine, unspecified formulation Franc Hills MD Work Phone: [facility] Work Phone: 12-07-2008 pneumococcal polysaccharide vaccine, 23 valent Franc Hills MD Work Phone: [facility] Work Phone: Payers Date Payer Category Payer Medicare (Managed Care) [employer] [id number] 2024 Unknown [employer] [id number] 2024-Present [phone] [address] [place] [address] O [id number] 2024 Medicare [id number] 2023 Self-pay [id number] 2022 Unknown [id number] 2015 Medicare [employer] THP [employer] MD[employer] PPO [id number] 2015-Present [phone] [place] [address] [facility] [id number] 2015 Medicare [id number] 2014 Medicare [id number] 2014 Unknown [id number] Unknown [id number] Unknown [id number] Social History Date Type Detail Facility Start: 04-02-2012 End: 11-19-2024 Tobacco smoking status NHIS Ex-smoker [facility] Work Phone: Start: 04-06-1960 End: 04-06-1980 History of tobacco use Current smoker [facility] Work Phone: Start: 04-06-1960 End: 04-06-1980 History of tobacco use Cigarette Smoker [facility] Work Phone: Start: 05-16-2021 End: 11-15-2024 Alcohol intake Ex-drinker (finding) [facility] Start: 05-16-2021 End: 08-08-2022 Alcohol intake [facility] Start: 02-12-2019 End: 01-17-2020 History SDOH Alcohol Frequency 3 [facility] Start: 11-28-2019 End: 05-26-2022 History SDOH Alcohol Std Drinks 2 [facility] Start: 01-17-2020 End: 05-26-2022 History SDOH Alcohol Binge 1 [facility] Start: 04-20-2017 History SDOH Alcohol Comment CAGE negative. [facility] Start: 02-12-2019 End: 05-26-2022 History SDOH Social Connections Phone 5 [facility] Start: 02-12-2019 Education 18 [facility] Start: 1945 Sex Assigned At Male [facility] Start: 12-14-2019 End: 02-03-2022 Exposure to SARS-CoV-2 (event) Not sure [facility] Start: 09-28-2021 End: 03-24-2022 Tobacco smoking status NHIS Unknown if ever smoked [facility] Work Phone: Start: 05-08-2014 Occasional [facility] Start: 01-10-2021 None [facility] Start: 01-10-2021 Alone [facility] Start: 01-10-2021 Non-smoker [facility] Start: 04-02-2012 End: 12-14-2023 Tobacco use and exposure Smokeless tobacco non-user [facility] Start: 12-16-2021 End: 12-26-2021 Exposure to SARS-CoV-2 (event) Unable to assess [facility] Work Phone: Start: 05-26-2022 End: 06-02-2022 History SDOH Alcohol Frequency 4 [facility] Start: 08-11-2022 Alcohol Comment stopped 07/19/2022 [facility] Start: 05-26-2022 End: 08-08-2022 Social connection and isolation panel [facility] Do you belong to any clubs or organizations such as mandaen groups, unions, fraternal or athletic groups, or school groups? No [facility] Are you now , , , , never or living with a partner? [facility] How often to you hav e a drink containing alcohol? 2-3 time sa week [facility] Work Phone: How many standard dr inks containing alcohol do you have on a typical day? 1 or 2 [facility] Work Phone: How often do you hav e 6 or more drinks on 1 occasion? Never [facility] Work Phone: Start: 03-07-2012 How hard is it for you to pay for the very basics like food, housing, medical care, and heating Not hard at all [facility] Do you feel stress - tense, restless, nervous, or anxious, or unable to sleep at night because your mind is troubled all the time - these days [OSQ] Not at all [facility] (I/We) worried wheth er (my/our) food would run out before (I/we) got money to buy more. Never true [facility] Start: 12-09-2018 Gender identity Identifies as male gender (finding) [facility] Start: 12-09-2018 Sexual orientation Heterosexual (finding) [facility] How many standard dr inks containing alcohol do you have on a typical day? 3 or 4 [facility] Start: 01-13-2020 Alcoholic beverage intake Current drinker of alcohol (finding) [facility] Do you feel stress - tense, restless, nervous, or anxious, or unable to sleep at night because your mind is troubled all the time - these days [OSQ] Only a little [facility] How often to you hav e a drink containing alcohol? 2-4 times a month [facility] How hard is it for y ou to pay for the very basics like food, housing, medical care, and heating Not very hard [facility] How often to you hav e a drink containing alcohol? Monthly or less [facility] Medical Equipment Procedure Code Equipment Code Equipment Origin al Text Equipment Identifier Dates Gas Io Ispan Vsn Sys 125gm Sf6 - [id number] Start: 05-04-2013 Lens Iol +21.5 D iop 13mm 6mm - [id number] Start: 05-04-2013 Patch Bovine Pericardial Vascular Duravess 8x8 - [id number] Start: 06-10-2019 Goals Date Patient Goal Desired Activity /State Personal health goal Functional Status Date Assessment Result Facility 08-08-2024 Total score [AUDIT-C] 2 08/09/19 10:08 AM EDT User, Giovanihart [facility] 08-08-2024 How often to you hav e a drink containing alcohol? Monthly or less 08/08/2024 10:08 AM EDT User, Mychart Monthly or less [facility] 08-08-[address] inks containing alcohol do you have on a typical day? 3 or 4 08/08/2024 10:08 AM EDT User, [email or web address] 3 or 4 [facility] 08-08-2024 How often do you hav e 6 or more drinks on 1 occasion? Never 08/08/2024 10:08 AM EDT User, Giovanihart Never [facility] 06-07-2024 Total score [AUDIT-C] 3 06/08/19 7:48 PM EST [facility] 06-07-2024 Within the last year , have you been humiliated or emotionally abused in other ways by your partner or ex-partner? No 06/07/2024 7:48 PM EST User, Giovanihart No [facility] 06-07-2024 Within the last year , have you been afraid of your partner or ex-partner? No 06/07/2024 7:48 PM EST User, Giovanihart No [facility] 06-07-2024 Within the last year , have you been raped or forced to have any kind of sexual activity by your partner or ex-partner? No 06/07/2024 7:48 PM EST User, Giovanihart No [facility] 06-07-2024 Within the last year , have you been kicked, hit, slapped, or otherwise physically hurt by your partner or ex-partner? No 06/07/2024 7:48 PM EST User, Mychart No [facility] 06-07-2024 How often to you hav e a drink containing alcohol? 2-4 times a month 06/07/2024 7:48 PM EST User, Mychart 2-4 times a month [facility] 06-07-[address] inks containing alcohol do you have on a typical day? 3 or 4 06/07/2024 7:48 PM EST User, Mychart 3 or 4 [facility] 06-07-2024 How often do you hav e 6 or more drinks on 1 occasion? Never 06/07/2024 7:48 PM EST UserBobbyt Never [facility] 06-06-2024 Total score [AUDIT-C] 3 06/07/19 9:06 AM EST User, Giovanihart [facility] 06-06-2024 Within the last year , have you been humiliated or emotionally abused in other ways by your partner or ex-partner? No 06/06/2024 9:06 AM EST User, Giovanihart No [facility] 06-06-2024 Within the last year , have you been afraid of your partner or ex-partner? No 06/06/2024 9:06 AM EST User, Giovanihart No [facility] 06-06-2024 Within the last year , have you been raped or forced to have any kind of sexual activity by your partner or ex-partner? No 06/06/2024 9:06 AM EST User, Bobbyt No [facility] 06-06-2024 Within the last year , have you been kicked, hit, slapped, or otherwise physically hurt by your partner or ex-partner? No 06/06/2024 9:06 AM EST User, Bobbyt No [facility] 06-06-2024 How often to you hav e a drink containing alcohol? 2-4 times a month 06/06/2024 9:06 AM EST User, Giovanihart 2-4 times a month [facility] 06-06-[address] inks containing alcohol do you have on a typical day? 3 or 4 06/06/2024 9:06 AM EST User, Giovanihart 3 or 4 [facility] 06-06-2024 How often do you hav e 6 or more drinks on 1 occasion? Never 06/06/2024 9:06 AM EST User, Bobbyt Never [facility] 06-11-2019 Are you deaf, or do you have serious difficulty hearing No 06/11/2019 9:31 AM Hilaria Shook, MORIAH No [facility] 06-11-2019 Are you blind, or do you have serious difficulty seeing, even when wearing glasses No 06/11/2019 9:31 AM Hilaria Shook RN No [facility] 06-11-2019 Do you have serious difficulty walking or climbing stairs No 06/11/2019 9:31 AM Hilaria Shook, MORIAH No [facility] 06-11-2019 Do you have difficul ty dressing or bathing No 06/11/2019 9:31 AM Hilaria Shook, MORIAH No [facility] 06-11-2019 Because of a physica l, mental, or emotional condition, do you have difficulty doing errands alone such as visiting a physician's office or shopping No 06/11/2019 9:31 AM Hilaria Shook, MORIAH No [facility] Mental Status Date Assessment Result Facility 11-19-2024 Cognitive function Level Of Cons ciousness Awake;Alert;Appropriate;Fol lows Commands [facility] Work Phone: 03-24-2022 Cognitive function Level Of Cons ciousness Drowsy [facility] Work Phone: 06-11-2019 Because of a physica l, mental, or emotional condition, do you have serious difficulty concentrating, remembering, or making decisions No 06/11/2019 9:31 AM Hilaria Shook, MORIAH No [facility] Clinical Notes 06-10-2019 to 11-20-2024 Note Date & Type Note Facility 11-20-2024 Discharge summary Note Date/Time November 20, 2024 1:18am [facility] Medical Records Department [address] [place] [address] Emergency Department Summary 11/19/24 MR#: [id number] Acct: [id number] Name: ALEX BROOKS Rep #:[id number] : [...] or difficulty breathing. Denies any choking episode. [facility] Medical History Wears glasses Alcohol use Kidney [...] Reaction Status Date / Time cephalexin (From KeJibo) Allergy Intermediate Rash Verified 11/19/24 19:08 cyclobenzaprine [...] 83.7 H Lymph % (Auto) 12.2 L Kay % (Auto) 3.3 Eos % (Auto) 0.1 [...] Calcium 9.1 Management Discussion w/another healthcare provider: [facility] (GI) Discharge Plan Triage Chief Complaint: Foreign Body ED Provider: Danielle Han Dx/Rx/DC Orders Clinical Impression: Esophageal obstruction due to food impaction, Current use of senior living anticoagulation, Dehydration, mild Prescriptions: No Action lisinopril-hydrochlorothiazide [...] Teri Gruber NP Referrals: Zeny Lam NP, BOOK AGENT-C [Non-Staff -Ordering Privileges] - Print Language: Ethiopian What to do if you have Problems For any increased pain, shortness of breath, bleeding, nausea or vomiting, chestpain, or any unexpected problems, contact your Primary Care Provider. Call [facility] ([phone]) or report to the closest Emergency Room. Call 911 if necessary. 11/20/24 0118 <Electronically signed by Danielle Han DO> Cosigner Signature (if applicable): CC: CHRISTAL Gruber ~ Signed [facility] Work Phone: [phone] [phone] Discharge summary [facility] Medical Records Department [address] [place] [address] Emergency Department Summary 11/19/24 MR#: [id number] Acct: [id number] Name: ALEX BROOKS Rep #:[id number] : [...] or difficulty breathing. Denies any choking episode. [facility] Medical History Wears glasses Alcohol use Kidney [...] Reaction Status Date / Time cephalexin (From KeJibo) Allergy Intermediate Rash Verified 11/19/24 19:08 cyclobenzaprine [...] 83.7 H Lymph % (Auto) 12.2 L Kay % (Auto) 3.3 Eos % (Auto) 0.1 [...] Calcium 9.1 Management Discussion w/another healthcare provider: [facility] (GI) Discharge Plan Triage Chief Complaint: Foreign Body ED Provider: Danielle Han Dx/Rx/DC Orders Clinical Impression: Esophageal obstruction due to food impaction, Current use of rn long term care anticoagulation, Dehydration, mild Prescriptions: No Action lisinopril-hydrochlorothiazide [...] Provider: Teri Gruber NP Referrals: Zeny Lam BOOK AGENT, BOOK AGENT-C [Non-Staff -Ordering Privileges] - Print Language: Ethiopian What to do if you have Problems For any increased pain, shortness of breath, bleeding, nausea or vomiting, chestpain, or any unexpected problems, contact your Primary Care Provider. Call [facility] ([phone]) or report tothe closest Emergency Room. Call 911 if necessary. 11/20/24 0118 Cosigner Signature (if applicable): CC: CHRISTAL Gruber ~ Signed [facility]08-12-2025 History of Present illness Narrative* Zeny Lam APRN.COMPUTER TECHNOLOGY TRAINER - 11/15/2024 12:53 PM EDT SUBJECTIVE Alex [...] normal. His INR is 2.7. Recording using [employer] software for draft documentation of the visit was discussed with the patient/authorized international account representative; all questions welcomed and answered. Patient/authorized international account representative agreed to proceed His medications were [...] Endarterectomy - 06/10/2019 Colonic Polyp - 11/29/2018 Assisted (Current) Use of Anticoagulants - 09/15/2018 Recurrent [...] Stable. 4. Recurrent pulmonary embolism (HCC) (I26.99) penitentiary (current) use of anticoagulants (Z79.01) INR is [...] Types: Marijuana [facility] encounter Note * Telephone Encounter - Zeny Lam APRN.CNP - 10/28/2024 12:00 PM EDT Noted and agree, no call back needed. [facility]07-25-2025 Miscellaneous Notes* Telephone Encounter - Zeny Lam [...] wants done. documented [facility] Telephone encounter Note * Telephone Encounter - [...] is what Zeny wants done. [facility]07-23-2025 Telephone encounter Note* Telephone Encounter - Emerald Hunt LPN - 10/26/2024 11:44 AM EDT Patient called. Verified name and date of . Patient wanted to let Shruti know he appreciates that Shruti called him and will see her and discuss plan at upcoming appointment in December. Emerald Hunt LPN [facility]07-23-2025 Miscellaneous Notes* Telephone Encounter - Emerald Hunt LPN - 10/26/2024 11:44 AM EDT Patient called. Verified name and date of . Patient wanted to let Shruti know he appreciates that Shruti called him and will see her and discuss plan at upcoming appointment in December. Emerald Hunt LPN documented [facility] Telephone encounter Note * Telephone Encounter - Celia Negrete LPN - 10/26/2024 8:55 AM EDT Left message to notify patient that medication was sent to his pharmacy. Celia Negrete LPN [facility]07-23-2025 Miscellaneous Notes* Telephone Encounter - Celia Negrete [...] new nefedipine Rx to [facility]. Reports he is almost out of 30 [...] dose ok), I updated the med list. Zney Lam APRN.KAYLA * Telephone Encounter - Brandi [...] Lambert LPN documented in [facility] Telephone encounter Note * Telephone Encounter - Zeny Lam APRN.CNP - 10/26/2024 8:14 AM EDT This has been sent in to the pharmacy. Zeny Lam APRN.CNP [facility]07-23-2025 Telephone encounter Note* Telephone Encounter - Alvin He RN - 10/26/2024 8:05 AM EDT Pt phoned to tell Zeny florenceyumiko for responding so quickly. Pt asking if you can send new nefedipine Rx to [facility]. Reports he is almost out of 30 mg, and right now he can get the 60 mg Rx for $20, lowest perez ever. Pt would like to pick this up today. Pended. [facility]22[facility]2025 Telephone encounter Note* Telephone Encounter - Zeny Lam APRN.CNP - 10/25/2024 3:04 PM EDT Please let him know okay to take the total of 60 mg of his nifedipine (2 tabs of the 30 mg dose ok), I updated the med list. Zeny Lam APRN.CNP [facility]07-22-2025 Telephone encounter Note* Telephone Encounter - Brandi [...] med chart. Brandi Lambert LPN [facility]07-17-2025 History of Present illness Narrative* Mirlande Funez MD - 10/20/2024 1:30 PM EDT Images from the original note were not included. . [facility] [place] Note Patient name: Alex Brooks PCP: Zeny Lam APRN.COMPUTER TECHNOLOGY TRAINER Referring Physician: same Consultation requested by Zeny Lam for an opinion regarding SOB. My final recommendations will be communicated back to the requesting physician by way of shared Medical record or letter to requesting physician via US mail. Recording using [employer] software for draft documentation of the visit was discussed with the patient/authorized international account representative; all questions welcomed and answered. 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 Mirlande Maria MA [facility]07-14-2025 Miscellaneous Notes* Telephone Encounter - Mirlande Maria [...] so patient would like rx sent to the [facility] [place]. Please review and advise (neither medications are on patients current medication list) Patient will need called back with information. documented in this encounterK[facility] Telephone encounter Note * Telephone Encounter - [...] do and let me know. [facility]07-14-2025 Telephone encounter Note* Telephone Encounter - Julieth [...] so patient would like rx sent to the [facility] [place]. Please review and advise (neither medications are on patients current medication list) Patient will need called back with information. [facility]07-11-2025 Telephone encounter Note* Telephone Encounter - Kristina Youssef LPN - 10/14/2024 1:12 PM EDT Patient notified of results and provider's instructions. Patient verbalizes understanding. Kristina Youssef LPN [facility]07-11-2025 Miscellaneous Notes* Telephone Encounter - Kristina Youssef [...] the lower side he had a different insurance defense paralegal and she didn't fill the tube all the way to the top (he thought that might contributeto the lower reading). Patient already scheduled for 10/28/2024 for next INR. Antoinette Meadows RN documented in this encounterK[facility] Telephone encounter Note * Telephone Encounter - Zeny Lam APRN.CNP - 10/14/2024 12:59 PM EDT Okay, noted, continue with current dose of coumadin and ok to repeat INR for when he has scheduled. [facility]07-11-2025 Telephone encounter Note* Telephone Encounter - Antoinette [...] the lower side he had a different insurance defense paralegal and she didn't fill the tube all the way to the top (he thought that might contributeto the lower reading). Patient already scheduled for 10/28/2024 for next INR. Antoinette Meadows RN [facility]07-08-2025 Telephone encounter Note* Telephone Encounter - Kari Briones LPN - 10/11/2024 2:01 PM EDT Patient notified of below recommendation, verbalized understanding. Kari Briones LPN [facility]07-08-2025 Miscellaneous Notes* Telephone Encounter - Kari Briones [...] Meadows RN documented in this encounterKet[facility]07-08-2025 Telephone encounter Note * Telephone Encounter - Zeny Lam APRN.KAYLA - 10/11/2024 11:23 AM EDT My concern is that it took a while to get his bp back to being controlled. I'm okay with him tryingthe switch but I would monitor blood pressure closely and wait to make any further additional changes until seen with pulmonary. [facility]07-07-2025 Telephone encounter Note* Telephone Encounter - Cyndy [...] and advise. Cyndy Whelan RN [facility]07-07-2025 Telephone encounter Note* Telephone Encounter - Antoinette Meadows RN - 10/10/2024 10:53 AM EDT See TE. Patient aware closing MC message. Antoinette Meadows RN [facility]07-07-2025 Miscellaneous Notes* Telephone Encounter - Antoinette Meadows RN - 10/10/2024 10:53 AM EDT See TE. Patient aware closing MC message. Antoinette Meadows RN documented in this encounterKet[facility]-2025 Telephone encounter Note * Telephone Encounter - Antoinette Meadows RN - 10/10/2024 10:52 AM EDT See TE 10/10/2024. Patient aware closing MC message. Antoinette Meadows RN [facility]07-07-2025 Miscellaneous Notes* Telephone Encounter - Antoinette Meadows RN - 10/10/2024 10:52 AM EDT See TE 10/10/2024. Patient aware closing MC message. Antoinette Meadows RN documented in this encounterKet[facility]07-[facility]-2025 Telephone encounter Note * Telephone Encounter - [...] and advise, Antoinette Meadows RN [facility]07-02-2025 Telephone encounter Note* Telephone Encounter - Cyndy Whelan RN - 10/05/2024 4:55 PM EDT Pt called and is notified of providers results and instructions. Pt voices understanding. Updated Anticoag tracker. Changed Pt's INR appointment. Cyndy Whelan RN [facility]07-02-2025 Miscellaneous Notes* Telephone Encounter - Cyndy Whelan [...] week. Thanks. * Telephone Encounter - Tammie Mnuguia RN - 10/05/2024 11:11 AM EDT Last [...] Munguia RN documented in this encounterKet[facility]07-02-2025 Telephone encounter Note * Telephone Encounter - Zeny Lam APRN.CNP - 10/05/2024 3:54 PM EDT Since it is his first low then it is okay to continue current coumadin dosing and then repeat INR in 1 week. Thanks. [facility]07-02-2025 Telephone encounter Note* Telephone Encounter - Tammie [...] and advise, Tammie Munguia RN [facility]-20-2025 Telephone encounter Note* Telephone Encounter - Haydee Lee LPN - 09/23/2024 5:11 PM EDT Patient notified of providers message and verbalized understanding [facility]06-20-2025 Miscellaneous Notes* Telephone Encounter - Haydee Lee [...] the appt for INR lab at the [facility] lab on MR on 10/05/24. documented in this encounterKet[facility]06-[facility]-2025 Telephone encounter Note * Telephone Encounter - Mani Edwards MD - 09/23/2024 4:48 PM EDT No change Recheck in 2 weeks Noted in initial message patient knew that would stay on same dose and recheck in 2 weeks [facility] Work Phone: [phone] Telephone encounter Note* Telephone Encounter - Alvin He RN - 09/23/2024 2:14 PM EDT Pt checking on provider's recommendation. [facility]06-19-2025 Telephone encounter Note* Telephone Encounter - Tammie Munguia RN - 09/22/2024 12:08 PM EDT Patient calls to see the status of this request. Please review and advise, Tammie Munguia RN [facility]06-18-2025 Telephone encounter Note* Telephone Encounter - Gabby Rm LPN - 09/21/2024 11:46 AM EDT Duplicate entry [facility]06-18-2025 Miscellaneous Notes* Telephone Encounter - Gabby Rm [...] narrative: no documented in this encounterKettering [facility]06-18-2025 Telephone encounter Note * Telephone Encounter - [...] the appt for INR lab at the [facility] lab on MR on 10/05/24. [facility]-18-2025 Telephone encounter Note* Telephone Encounter - Gabby Rm LPN - 09/21/2024 11:11 AM EDT Last INR: INR Home CoaguChek 2.9 09/21/2024 Current dose of coumadin is: 5 mg alternating with 7.5 mg . Last date of dose change: 09/07/24. Previous INR (date and result): 09/07/24 3.0 Additional Clinical Information or narrative: no [facility]06-16-2025 Telephone encounter Note* Telephone Encounter - Cyndy Whelan RN - 09/19/2024 3:42 PM EDT Pt called and is notified of providers message and instructions. Pt voices understanding. Cyndy Whelan RN [facility]06-16-2025 Miscellaneous Notes* Telephone Encounter - Cyndy Whelan [...] Parker RN documented in this encounterKettering [facility]06-16-2025 Telephone encounter Note * Telephone Encounter - Zeny Lam APRN.CNP - 09/19/2024 12:57 PM EDT Please let him know I ordered labs and he will also be due for a urine test so I ordered that too. [facility]06-12-2025 Telephone encounter Note* Telephone Encounter - Edgar Landa LPN - 09/15/2024 4:14 PM EDT Pt. notified will discuss further imaging after appt. Edgar Landa LPN [facility]06-12-2025 Miscellaneous Notes* Telephone Encounter - Edgar Landa [...] Landa LPN documented in this encounterKettering [facility]06-11-2025 Telephone encounter Note * Telephone Encounter - Edgar Landa LPN - 09/14/2024 12:05 PM EDT Patient was ordered CT Chest by PCP but would like to postpone until after his consult appointment on 10/20. His last CXR was August 2023. Asking if imaging is indicated prior to appt? Edgar Landa LPN [facility]06-11-2025 Telephone encounter Note* Telephone Encounter - Graciela Parker RN - 09/14/2024 11:58 AM EDT Pt has OV appt with Lauryn Lam CNP on 11/15/24. He is asking if provider would place any lab orders for him to complete prior to this appt. Please call patient with an update. Graciela Parker RN [facility]06-09-2025 Telephone encounter Note* Telephone Encounter - Gabby Rm LPN - 09/12/2024 2:19 PM EDT PATIENT NOTIFIED OF SAME. Will call back to schedule after verifing Dr. Funez is in network. [facility]-09[facility]2025 Miscellaneous Notes* Telephone Encounter - Gabby Rm [...] Munguia RN documented in this encounterKet[facility]06-09-2025 Telephone encounter Note * Telephone Encounter - Zeny Lam APRN.CNP - 09/12/2024 1:45 PM EDT Please let him know that I think it might be more beneficial at this point for him to follow up with seeing pulmonary (already has a consult placed) rather than repeat the PFTs. [facility]-09[facility]2025 Telephone encounter Note* Telephone Encounter - Tammie [...] and advise, Tammie Munguia RN [facility]06-06-2025 Telephone encounter Note* Telephone Encounter - Zeny Lam APRN.CNP - 09/09/2024 7:27 AM EDT PDMP website checked and validated. All prescriptions have been APPROPRIATELY filled. No suspiciousactivity was identified. 09/09/2024 by Zeny Lam APRN.CNP [facility]06-06-2025 Miscellaneous Notes* Telephone Encounter - Zeny Lam [...] to 180 days. Patient is changing to [facility] since [facility] is closing October 02. Tala Torres LPN September 08, 2024 11:27 AM documented in this encounterK[facility]06-[facility]-2025 Telephone encounter Note * Telephone Encounter - [...] to 180 days. Patient is changing to [facility] since [facility] is closing October 02. Tala Torres LPN September 08, 2024 11:27 AM [facility]06-04-2025 Telephone encounter Note* Telephone Encounter - Gabby Rm LPN - 09/07/2024 10:45 AM EDT PATIENT NOTIFIED OF SAME. Tracker updated. [facility]06-04-2025 Miscellaneous Notes* Telephone Encounter - Gabby Rm [...] Parker RN documented in this encounterKettering [facility]06-04-2025 Telephone encounter Note * Telephone Encounter - Zeny Lam APRN.CNP - 09/07/2024 10:42 AM EDT Okay to do the next INR on 09/21/2024, I would recommend he stop taking the 10 mg dose and stick with 5 mg alternating with 7.5 mg since last 2 INRs have been a little higher. [facility]06-04-2025 Telephone encounter Note* Telephone Encounter - Graciela [...] other orders. Graciela Parker RN [facility]06-02-2025 Telephone encounter Note* Telephone Encounter - Zeny Lam APRN.CNP - 09/05/2024 2:53 PM EDT PDMP website checked and validated. All prescriptions have been APPROPRIATELY filled. No suspiciousactivity was identified. 09/05/2024 by Zeny Lam APRN.CNP [facility]06-02-2025 Miscellaneous Notes* Telephone Encounter - Zeny Lam [...] 2:38 PM documented in this encounterKettering [facility]06-02-2025 Telephone encounter Note * Telephone Encounter - [...] September 05, 2024 2:38 PM [facility]-02-2025 Telephone encounter Note* Telephone Encounter - Tammie [...] September 05, 2024 12:53 PM [facility]-02-2025 Miscellaneous Notes* Telephone Encounter - Tammie Munguia [...] 12:53 PM documented in this encounterKet[facility]05-19-2025 Telephone encounter Note * Telephone Encounter - Zeny Lam APRN.CNP - 08/22/2024 9:34 AM EDT Kamlesh noted, if he wants to wait that is okay. [facility]05-19-2025 Miscellaneous Notes* Telephone Encounter - Zeny Lam APRN.CNP - 08/22/2024 9:34 AM EDT Okay noted, if he wants to wait that is okay. * Telephone Encounter - Alvin He RN - 08/19/2024 1:05 PM EDT Pt phoned back to tell Zeny shabazz message below. He spoke with [employer] and figured it out. Pt states [...] or telephone. documented in this encounterK[facility]05-[facility]-2025 Telephone encounter Note * Telephone Encounter - Alvin He RN - 08/19/2024 1:05 PM EDT Pt phoned back to tell Zeny disregard message below. He spoke with [employer] and figured it out. Pt states he wants to wait a few weeks to get the CT done, unless you think he should do it sooner.States he wants to see if there's another cause, possibly allergies. [facility]16[facility]2025 Telephone encounter Note* Telephone Encounter - Alvin He RN - 08/19/2024 10:48 AM EDT Patient phoned to ask Zeny, does the CT chest W IVCON use high or low dose. Pt states you can replyto him via MC or telephone. [facility]12[facility]2025 History of Present illness Narrative* Zeny Lam [...] Consulting (Hematology/Oncology) Mj Dos Santos MD as Software Build Engineer (Cardiology) Medical/Family history review Reviewed and updated [...] is on Coumadin and notes that the hr specialist was aware of this. During the visit, the hr specialist attempted to trim a difficult toenail on [...] also mentions a recent conversation with a hr specialist who advised him to use gauze. Rich [...] Endarterectomy - 06/10/2019 Colonic Polyp - 11/29/2018 General Purchasing Agent (Current) Use of Anticoagulants - 09/15/2018 Recurrent [...] MICHI Navarro documented in this encounterK[facility]05-12-2025 Instructions* Patient Instructions* Zeny Lam APRN.CNP - [...] review all the medicines you take, even cssp-kjn-hmybote medicines. As you get older, the way [...] medical conditions. documented in this encounterKet[facility]05-08-2025 NoteDate of Procedure 08/11/2024. Quantitative Analyst Marketing Information Assembler Flexible Leads: Patience Gonzales Start time: 9:48 AM. Stop time: 9:52 AM. OCT Macula Interpretation Right Eye Findings include Epiretinal membrane, RPE Irregularity, Vitelliform lesion; Negative for Intraretinal fluid. Left Eye Abnormal foveal contour. Findings include Negative for Intraretinal fluid, Subretinal fluid. Interval Change Right Eye Worse. Left Eye Stable.[id number] History of Present illness Narrative* Kvng Magaña [...] relevant components. documented in this encounterKet[facility]05-07-2025 Telephone encounter Note * Telephone Encounter - Gabby Rm LPN - 08/10/2024 4:04 PM EDT PATIENT NOTIFIED OF SAME. [facility]05-07-2025 Miscellaneous Notes* Telephone Encounter - Gabby Rm [...] 11 am. documented in this encounterKet[facility]05-07-2025 Telephone encounter Note * Telephone Encounter - Zeny Lam APRN.CNP - 08/10/2024 12:45 PM EDT Noted and agree, continue current dose and repeat INR as planned. [facility]-07-2025 Telephone encounter Note* Telephone Encounter - Alvin [...] on 08/24/24 at 11 am. [facility]05-07-2025 Progress note* Result Encounter Note - Zeny Lam APRN.CNP - 08/10/2024 12:08 PM EDT Plan to go over result at up coming follow up appointment. [facility]05-07-2025 Miscellaneous Notes* Result Encounter Note - Zeny Lam APRN.CNP - 08/10/2024 12:08 PM EDT Plan to go over result at up coming follow up appointment. documented in this encounterKettering Health [facility]05-07-2025 NoteHNO ID: [id number] Author: WALT YANG R Ac Service: ? [...] reducing alcohol intake. He was living in [facility] since he was born and moved to [place] for job-related which he regret as business environment and living was not the same. About 10 year ago, he moved to [place] and that was when he started experiencing exacerbation of all the condition. 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 Patient agrees that e (more content not included)...[facility] [id number] History of Present illness Narrative* Walt Yang [...] reducing alcohol intake. He was living in [facility] since he was born and moved to [place] for job-related which he regret as business environmentand living was not the same. About 10 year ago, he moved to [place] and that was when he started experiencing exacerbation of all the condition. 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 documented in this encounterKet[facility]05-05-2025 History of Present illness Narrative* Sunny Mercedes MD - 08/08/2024 1:00 PM EDT Images from the original note were not included. [facility] SE[facility]IONAL CARDIOLOGY Cardiology ([facility]) [address] [id number] OUTPATIENT VISIT DATE 08/08/2024 PRIMARY CARE PHYSICIAN: Zeny Lam [address] [place] [address] HISTORY OF PRESENT ILLNESS: Mr. Brooks is [...] to knees, as of 2008 --- in [place], neurologist thought related to alcohol; Has had [...] Mercedes MD documented in this encounterKettering [facility]05-03-2025 Telephone encounter Note * Telephone Encounter - Tonie Mai RN - 08/06/2024 4:28 PM EDT Patient calling regarding bleeding after toe nail trim on 07/28/24 . Conferenced to [employer] [place] dandy operator, Анна, to speak with provider visual education teacher for Podiatry. [facility]-03[facility]2025 Miscellaneous Notes* Telephone Encounter - Tonie Mai RN - 08/06/2024 4:28 PM EDT Patient calling regarding bleeding after toe nail trim on 07/28/24 . Conferenced to [employer] [place] dandy operator, Анна, to speak with provider visual education teacher for Podiatry. documented in this encounterKettering Health [facility]05-01-2025 Procedure note* Mariana Barbosa RRT - 08/04/2024 [...] 04, 2024 TIME: 12:34 PM [facility]-01[facility]25 Procedure note* Mariana Barbosa RRT - 08/04/2024 [...] 12:34 PM documented in this encounterKettering [facility]04-23-2025 Telephone encounter Note * Telephone Encounter - Gabby Rm LPN - 07/27/2024 1:57 PM EDT PATIENT NOTIFIED OF SAME. [facility]-23-2025 Miscellaneous Notes* Telephone Encounter - Gabby Rm [...] on 08/10/24 documented in this encounterKettering [facility]04-23-2025 Telephone encounter Note * Telephone Encounter - Zeny Lam APRN.CNP - 07/27/2024 1:02 PM EDT Noted and okay to continue current dose and check INR as he plans in 2 weeks. [facility] Telephone encounter Note* Telephone Encounter - Alvin [...] in 2 weeks on 08/10/24 [facility]25 NoteHNO ID: [id number] Author: WALT YANG R Ac Service: ? [...] reducing alcohol intake. He was living in [facility] since he was born and moved to [place] for job-related which he regret as business environment and living was not the same. About 10 year ago, he moved to [place] and that was when he started experiencing exacerbation of all the condition. 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 Patient agrees that either: 1. A diagnostic exam has been performed by a physician or chiroprac (more content not included)...[facility] [id number] History of Present illness Narrative* Walt Yang [...] reducing alcohol intake. He was living in [facility] since he was born and moved to [place] for job-related which he regret as business environmentand living was not the same. About 10 year ago, he moved to [place] and that was when he started experiencing exacerbation of all the condition. 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 [facility]14[facility]2025 Miscellaneous Notes* Telephone Encounter - Zeny Lam APRN.CNP - 07/18/2024 3:01 PM EDT See my chart message. * Telephone Encounter - Tala Torres LPN - 07/18/2024 9:21 AM EDT Patient calling back he has appt in [place] on 07/26 so cancelled appt with Zeny [...] 140 pm to discuss stress test results. [facility] notifying pt to contact us if [...] hesees Zeny? documented in this encounterKettering [facility]04-14-2025 Telephone encounter Note * Telephone Encounter - [...] shortness of breath? Please advise [facility]14[facility]25 Telephone encounter Note* Telephone Encounter - Ramila [...] the medication until hesees Zeny? [facility] History of Present illness Narrative* Cris Kincaid, [...] PATIENT PRESENTS WITH AN IMPLANTABLE OR ATTACHED EGG SEPARATOR: n/a CREATININE: Creatinine Date Value Ref Range [...] Discontinued PROCEDURE TYPE: NM Stress: 13.9 mCi [id number] was administered IV for Rest Imaging at 07:38 by . 36 mCi [id number]-Zlmvxrd was administered IV for Stress Imaging at 08:45 by . PATIENT DISCHARGED TO: Ambulatory patient, left NE department area. Is this a therapy: No A Diagnostic radioactive procedure has taken place, with no further precautions necessary other than routine body substance precautions. More information regarding radiation safety can be found usingthis link: [email or web address] SIGNATURE: RT Lion(Jose J) PATIENT NAME: Alex Brooks DATE: July 18, 2024 TIME: 12:00 PM PAGER/CONTACT #: documented in this encounterK[facility] Telephone encounter Note * Telephone Encounter - Cyndy Whelan RN - 07/13/2024 5:28 PM EDT Pt called and is notified of providers message and instructions. Pt voices understanding. Updated Anticoag tracker. Cyndy Whelan RN [facility]04-09-2025 Miscellaneous Notes* Telephone Encounter - Cyndy Whelan [...] No missed documented in this encounterKet[facility]04-09-2025 Telephone encounter Note * Telephone Encounter - Zeny Lam APRN.CNP - 07/13/2024 1:19 PM EDT Continue current dose and ok for check on 07/27. [facility]04-[facility] Telephone encounter Note* Telephone Encounter - Tammie [...] diet No antibiotics No missed [facility]04-03-[facility] Telephone encounter Note* Telephone Encounter - Alvin [...] can contact him next week. [facility]04-03-[facility]25 Miscellaneous Notes* Telephone Encounter - Alvin He [...] next week. documented in this encounterKet[facility]03-28-2025 Telephone encounter Note * Telephone Encounter - Tammy Wang MA - 07/01/2024 2:16 PM EDT Pharmacy request denied. Patient needs to contact office for refills. Tammy Wang MA [facility]03-28-2025 Miscellaneous Notes* Telephone Encounter - Tammy Wang MA - 07/01/2024 2:16 PM EDT Pharmacy request denied. Patient needs to contact office for refills. Tammy Wang MA documented in this encounterKet[facility]03-26-2025 Telephone encounter Note * Telephone Encounter - Gabby Rm LPN - 06/29/2024 2:53 PM EDT PATIENT NOTIFIED OF SAME. [facility]-26-[facility] Miscellaneous Notes* Telephone Encounter - Gabby Rm [...] or bruising. documented in this encounterKettering [facility]03-26-2025 Telephone encounter Note * Telephone Encounter - Zeny Lam APRN.CNP - 06/29/2024 12:53 PM EDT Continue with the current dose and repeat INR in 3 weeks. Thanks. Zeny Lam APRN.CNP [facility]03-26-[facility] Telephone encounter Note* Telephone Encounter - Antoinette [...] this now. Antoinette Meadows RN [facility]03-26-2025 Miscellaneous Notes* Telephone Encounter - Antoinette Meadows [...] Meadows RN documented in this encounterKettering [facility]03-26-2025 Telephone encounter Note * Telephone Encounter - [...] no unusual bleeding or bruising. [facility]-22-[facility] Telephone encounter Note* Telephone Encounter - Gabby [...] June 25, 2024 8:47 AM [facility]-22-[facility] Miscellaneous Notes* Telephone Encounter - Gabby Rm [...] 8:47 AM documented in this encounterKettering [facility]03-18-2025 Telephone encounter Note * Telephone Encounter - Ellen Coffman LPN - 06/21/2024 9:19 AM EDT Returned patients call offered patient billing number. Patient states he already has number. Informed patient that we are unable to perform nail care as nurse visit. Patient verbalized understanding and will call billing. Ellen Coffman LPN [facility] Work Phone: 1(562) 572-773203-18-2025 Miscellaneous Notes* Telephone Encounter - Ellen Coffman [...] Harp LPN documented in this encounterKettering [facility]03-17-2025 Telephone encounter Note * Telephone Encounter - Gabby Rm LPN - 06/20/2024 2:47 PM EDT PATIENT NOTIFIED OF SAME. [facility]03-17-[facility]25 Miscellaneous Notes* Telephone Encounter - Gabby Rm [...] He states when he saw Oncology at [facility] they do not order those after the age of 78. Hilaria Harp LPN documented in this encounterKettering [facility]03-17-2025 Telephone encounter Note * Telephone Encounter - Zeny Lam APRN.CNP - 06/20/2024 12:37 PM EDT We can discuss the PSA testing in more depth with his follow up but at this time I would not recommend adding it to his upcoming labs. [facility]03-17-[facility] Telephone encounter Note* Telephone Encounter - Hilaria Harp LPN - 06/20/2024 11:01 AM EDT Patient called in and wondered if he should have a PSA added to his upcoming labs to be completed. He states when he saw Oncology at [facility] they do not order those after the age of 78. Hilaria Harp LPN [facility]03-17-2025 Telephone encounter Note* Telephone Encounter - Hilaria [...] with him. Hilaria Harp LPN [facility]03-13-[facility]25 Progress note* Result Encounter Note - Bonnie Sharif APRN.CNS - 06/16/2024 8:12 AM EDT magnesium within normal limits [facility] Work Phone: [phone]) [phone] Miscellaneous Notes* Result Encounter Note - Bonnie Sharif APRN.CNS - 06/16/2024 8:12 AM EDT magnesium within normal limits documented in this encounterKettering [facility]03-12-2025 Telephone encounter Note * Telephone Encounter - Zeny Lam APRN.CNP - 06/15/2024 2:29 PM EDT See my chart reply [facility]03-12-2025 Miscellaneous Notes* Telephone Encounter - Zeny Lam [...] Phone call. documented in this encounterKettering [facility]03-12-2025 Telephone encounter Note * Telephone Encounter - [...] anti coag Antoinette Meadows RN [facility]03-12-2025 Telephone encounter Note* Telephone Encounter - Alvin [...] via MyChart or Phone call. [facility]03-05-2025 Miscellaneous Notes* Telephone Encounter - Gabby Rm [...] 4:17 PM documented in this encounterKettering [facility]03-05-2025 Telephone encounter Note * Telephone Encounter - [...] June 08, 2024 4:17 PM [facility]03-05-2025 History of Present illness Narrative* Zeny Lam APRN.COMPUTER TECHNOLOGY TRAINER - 06/08/2024 3:14 PM EST SUBJECTIVE Alex Brooks is a 78 year old male here today for a check up on his medical problems. Chief Complaint Patient presents with: Recheck: update of current condition SOB with stress test 07/18/24 HPI Alex Brooks is a 78 year old male. He presents today for recheck. He was seen 05/17 with [facility] for shortness of breath. Continues to have [...] Endarterectomy - 06/10/2019 Colonic Polyp - 11/29/2018 Assisted (Current) Use of Anticoagulants - 09/15/2018 Recurrent [...] Vision abnormalities - ICD9: 368.9, ICD10: H53.9 [facility] appointment coming up. Portions of this note [...] Lam APRN-KAYLA documented in this encounterKettering [facility]03-05-2025 Telephone encounter Note * Telephone Encounter - [...] June 08, 2024 9:10 AM [facility]03-05-2025 Miscellaneous Notes* Telephone Encounter - Gabby Rm [...] 9:10 AM documented in this encounterKettering [facility]03-05-2025 Telephone encounter Note * Telephone Encounter - [...] June 08, 2024 9:09 AM [facility]03-05-2025 Miscellaneous Notes* Telephone Encounter - Gabby Rm [...] 9:09 AM documented in this encounterKettering [facility]03-03-2025 Telephone encounter Note * Telephone Encounter - Zeny Lam APRN.CNP - 06/06/2024 12:31 PM EST Noted, we will address acute concerns with the visit. [facility]03-03-[facility] Miscellaneous Notes* Telephone Encounter - Zeny Lam [...] with his retinal surgeon up at the [facility] but that isn't until August. I told [...] before appointment. documented in this encounterKettering [facility]03-03-2025 Telephone encounter Note * Telephone Encounter - [...] with his retinal surgeon up at the [facility] but that isn't until August. I told [...] head of time before appointment. [facility]02-28-[facility]25 Telephone encounter Note* Telephone Encounter - Maribel Oden LPN - 06/03/2024 8:39 AM EST Spoke with pt and information listed below given. Pt verbalizes understanding. Maribel Oden LPN [facility]02-28-2025 Miscellaneous Notes* Telephone Encounter - Maribel Oden [...] Oden LPN documented in this encounterKettering Health [facility]02-27-2025 Telephone encounter Note * Telephone Encounter - [...] evaluate his degree of SOB. [facility]02-27-[facility]25 Telephone encounter Note* Telephone Encounter - Cyndy Whelan RN - 06/02/2024 12:57 PM EST Pt called and is notified of providers results and instructions. Pt voices understanding. Updated Anticoag tracker. Pt wanted to let provider know that she had told him to reduce his Magnesium for diarrhea and that helped. Cyndy Whelan RN [facility]02-27-2025 Miscellaneous Notes* Telephone Encounter - Cyndy Whelan [...] before testing. documented in this encounterKettering [facility]02-27-2025 Telephone encounter Note * Telephone Encounter - Bonnie Sharif APRN.CNS - 06/02/2024 11:25 AM EST Continue with Coumadin dose unchanged and check INR in 2 weeks. [facility] Work Phone: [phone]) 307-558502-26-2025 Telephone encounter Note* Telephone Encounter - Cyndy [...] was 4 days before testing. [facility]02-24-[facility]25 Telephone encounter Note* Telephone Encounter - Maribel [...] advise pt. Maribel Oden LPN [facility]02-18-[facility]25 History of Present illness Narrative* Jaycob Edgar David, DO - 05/24/2024 11:51 AM EST Images from the original note were not included. [facility] [place] DEPARTMENT OF VASCULAR SURGERY OUTPATIENT VISIT DATE May 24, 2024 OUTPATIENT VISIT TYPE ESTABLISHED SERVICE DATE: 05/24/2024 SERVICE TIME: 11:51 AM PRIMARY CARE PHYSICIAN: Zeny Lam APRN.COMPUTER TECHNOLOGY TRAINER HISTORY OF PRESENT ILLNESS: Mr. Brooks is [...] to knees, as of 2008 --- in [place], neurologist thought related to alcohol; Has had [...] 11:51 AM documented in this encounterKettering Health [facility]02-13-2025 History of Present illness Narrative* Gayle Green [...] 10/15/2017 5.5 04/14/2017 5.6 10/23/2011 5.7 HBA1C, Leopold (%) Date Value 07/24/2011 5.8 08/24/2009 6.3 Hemoglobin A1C (POCT) (%) Date Value 03/22/2021 5.1 PCP: Zeny Genaro, DIRECTOR OF INCOME TAX.COMPUTER TECHNOLOGY TRAINER PAST MEDICAL HISTORY Diagnosis Date Asthma as [...] to knees, as of 2008 --- in [place], neurologist thought related to alcohol; Has had [...] foot (I73.9) PAD (peripheral artery disease) ([facility]) (M20.40) Hammer toe, unspecified laterality PLAN: 1. [...] Green DPM Podiatry [address] [place] [address] Dept: [phone] Dept * Ellen Coffman LPN - 05/19/2024 [...] Right Foot - Numbness, nail care Ellen Coffmna LPN documented in this encounterKettering [facility]02-12-2025 Telephone encounter Note * Telephone Encounter - Cyndy Whelan RN - 05/18/2024 6:32 PM EST Pt called and is notified of providers results and instructions. Pt voices understanding. Updated Anticoag tracker. Cyndy Whelan RN [facility]02-12-2025 Miscellaneous Notes* Telephone Encounter - Cyndy Whelan [...] INR testing. documented in this encounterKettering [facility]02-12-2025 Telephone encounter Note * Telephone Encounter - Mani Edwards MD - 05/18/2024 6:23 PM EST No change Recheck in 2 weeks to verify stable on same dose as usual after the 10 mg dose given 05/10 [facility]02-12-2025 Telephone encounter Note* Telephone Encounter - Tamime Munguia RN - 05/18/2024 11:27 AM EST [...] weeks for next INR testing. [facility]02-11-[facility] History of Present illness Narrative* Teri Gruber APRN.COMPUTER TECHNOLOGY TRAINER - 05/17/2024 2:09 PM EST Chief Complaint [...] to knees, as of 2008 --- in [place], neurologist thought related to alcohol; Has had [...] OXYCODONE-ACETAMINOPHEN 7.5 MG-325 MG TABLET Teri Gruber APRN.COMPUTER TECHNOLOGY TRAINER documented in this encounterKettering Health [facility]02-05-2025 Telephone encounter Note * Telephone Encounter - Tammie Munguia RN - 05/11/2024 3:16 PM EST Patient calls back and states that he talked to [facility] and patient is eligible for Covid Vaccine.Patient report that [facility] to get vaccine. Provider does not have to adviseon this anymore. Tammie Munguia RN [facility]02-05-2025 Miscellaneous Notes* Telephone Encounter - Tammie Munguia RN - 05/11/2024 3:16 PM EST Patient calls back and states that he talked to [facility] and patient is eligible for Covid Vaccine.Patient report that he has appointment at [facility] to get vaccine. Provider does not have to adviseon this anymore. Tammie Munguia RN * Telephone Encounter - Maribel Oden LPN - 05/11/2024 1:57 PM EST Pt called to see if he is due for a COVID vaccine. Please advise pt. Maribel Oden LPN documented in this encounterKettering Health [facility]02-05-2025 Telephone encounter Note * Telephone Encounter - Maribel Oden LPN - 05/11/2024 1:57 PM EST Pt called to see if he is due for a COVID vaccine. Please advise pt. Maribel Oden LPN [facility]02-04-2025 Telephone encounter Note* Telephone Encounter - Haydee Lee LPN - 05/10/2024 2:21 PM EST Patient notified of providers message and verbalized understanding. [facility]02-04-2025 Miscellaneous Notes* Telephone Encounter - Haydee Lee [...] for 05/18/2024. documented in this encounterKettering [facility]02-04-2025 Telephone encounter Note * Telephone Encounter - Bonnie Sharif APRN.CNS - 05/10/2024 2:08 PM EST He can take coumadin 10 mg today then resume usual dosing. [facility] Work Phone: [phone]) 379-410102-04-2025 Telephone encounter Note* Telephone Encounter - Haydee Lee LPN - 05/10/2024 1:26 PM EST Spoke with patient. Patient is concerned about instructions. Patient is scheduled to take 7.5 mg tonight so schedule is not changing and believes 1.6 is too low for him, believe there should be a change. Please advise [facility]02-04-2025 Telephone encounter Note* Telephone Encounter - Bonnie [...] 1.6 (H) Legend: (H) High [facility]02-04-2025 Telephone encounter Note* Telephone Encounter - Tammie [...] a week. Patient is scheduled for 05/18/2024. [facility]01-22-2025 Telephone encounter Note* Telephone Encounter - Sherry Rodrigues MD - 04/27/2024 6:04 PM EST Noted. Agree with current dose and repeat in 2 weeks Regards, Sherry Rodrigues MD [facility] Work Phone: 1(907) 164-516301-22-2025 Miscellaneous Notes* Telephone Encounter - Sherry Rodrigues [...] narrative: no documented in this encounterKettering [facility]01-22-2025 Telephone encounter Note * Telephone Encounter - [...] Clinical Information or narrative: no [facility]01-07-2025 Telephone encounter Note* Telephone Encounter - Bonnie Sharif APRN.CNS - 04/12/2024 3:30 PM EST ok [facility]01-07-2025 Miscellaneous Notes* Telephone Encounter - Bonnie Sharif [...] 2 weeks. documented in this encounterKettering [facility]01-07-2025 Telephone encounter Note * Telephone Encounter - Gabby Rm LPN - 04/12/2024 1:30 PM EST PATIENT NOTIFIED OF SAME. Patient stopped OTC magnesium about 2-3 weeks ago. It was suggested to stopped it due to symptoms of diarrhea. Within 2 days of stopping diarrhea improved. Would like a magnesium level check at next INR drawn. [facility]01-07-2025 Telephone encounter Note* Telephone Encounter - Bonnie Sharif APRN.CNS - 04/12/2024 12:41 PM EST Continue with Coumadin dose unchanged check INR in 2 weeks [facility]01-07-2025 Telephone encounter Note* Telephone Encounter - [...] his appointment for INR in 2 weeks. [facility]12-20-2024 Telephone encounter Note* Telephone Encounter - Graciela Parker RN - 03/25/2024 1:45 PM EST Patient calling with medication related question. Information reviewed. Graciela Parker RN [facility]12-20-2024 Miscellaneous Notes* Telephone Encounter - Graciela Parker RN - 03/25/2024 1:45 PM EST Patient calling with medication related question. Information reviewed. Graciela Parker RN documented in this encounterKettering Health [facility]12-20-2024 Miscellaneous Notes* Telephone Encounter - Osei Maciel [...] Please advise documented in this encounterKettering Health [facility]ble12-20-2024 Telephone encounter Note * Telephone Encounter - Osei Maciel LPN - 03/25/2024 11:01 AM EST Letter ready to be mailed, patient aware. Osei Maciel LPN [facility]12-20-2024 Telephone encounter Note* Telephone Encounter - Gabby Rm LPN - 03/25/2024 9:09 AM EST Letter printed and at nurse pod for signature. [facility]12-19-2024 Telephone encounter Note* Telephone Encounter - Mani Edwards MD - 03/24/2024 5:49 PM EST Print parking placard letter for me--cannot change from Zeny Lam on the letterhead. For cannot walk without stopping to rest and condition orthopedic. Permanent for 10 years [facility]12-19-2024 Telephone encounter Note* Telephone Encounter - Tala Torres LPN - 03/24/2024 4:11 PM EST Patient returned call and went over notes below from Nahomi Sharif BOOK AGENT with understanding. [facility]12-19-2024 Miscellaneous Notes* Telephone Encounter - Tala Torres LPN - 03/24/2024 4:11 PM EST Patient returned call and went over notes below from Nahomi Sharif BOOK AGENT with understanding. * Telephone Encounter - Ramila [...] Munguia RN documented in this encounterKettering Health [facility]12-19-2024 Telephone encounter Note * Telephone Encounter - Ramila Anand RN - 03/24/2024 3:58 PM EST Called and left a voicemail for the patient to call back and ask for a nurse to receive the providers message. [facility]12-19-2024 Telephone encounter Note* Telephone Encounter - Bonnie [...] make medication adjustments if needed. [facility] Work Phone: [phone] 804-651112-19-2024 Telephone encounter Note* Telephone Encounter - Haydee [...] was 116/67 and pulse 64. [facility]12-19-2024 Telephone encounter Note* Telephone Encounter - Bonnie Sharif APRN.CNS - 03/24/2024 2:20 PM EST This is not a listed side effect of clonidine. Did anything else change in that time period? Has heincreased his use of magnesium? [facility]12-19-2024 Telephone encounter Note* Telephone Encounter - Haydee Lee LPN - 03/24/2024 2:12 PM EST Patient notified of providers message and verbalized understanding. [facility]12-19-2024 Miscellaneous Notes* Telephone Encounter - Haydee Lee LPN - 03/24/2024 2:12 PM EST Patient notified of providers message and verbalized understanding. * Telephone Encounter - Bonnie Sharif APRN.COMPUTER TECHNICAL SPECIALIST - 03/24/2024 1:44 PM EST This was sent to me from [facility]. May continue on with Coumadin dose unchanged [...] Patient requesting note to be sent to [facility] to review. documented in this encounterKettering [facility]12-19-2024 Telephone encounter Note * Telephone Encounter - Bonnie Sharif APRN.COMPUTER TECHNICAL SPECIALIST - 03/24/2024 1:44 PM EST This was sent to me from [facility]. May continue on with Coumadin dose unchanged and check INR in 2 weeks [facility] Work Phone: 1(202) 952-778312-19-2024 Telephone encounter Note* Telephone Encounter - Tala [...] Patient requesting note to be sent to [facility] to review. [facility]12-19-2024 Telephone encounter Note* Telephone Encounter - Mirlande Maria MA - 03/24/2024 11:08 AM EST Patient is at [facility] to get INR draw but order on file . Please file pended order. Labdoes not need notified. Mirlande Maria MA [facility]12-19-2024 Miscellaneous Notes* Telephone Encounter - Mirlande Maria MA - 03/24/2024 11:08 AM EST Patient is at [facility] to get INR draw but order on file . Please file pended order. Labdoes not need notified. Mirlande Maria MA documented in this encounterKettering [facility]12-18-2024 Telephone encounter Note * Telephone Encounter - Tammie Munguia RN - 03/23/2024 4:31 PM EST Patient calls back and is asking if handicap placard paper work can be mailed out to him. Address verified. Patient states that he has a hard time walking distances. Tammie Munguia RN [facility]12-17-2024 Telephone encounter Note* Telephone Encounter - Corrina Whipple - 03/22/2024 1:50 PM EST Patient called requesting paper work for the renewal of the disability placard Please advise [facility] Work Phone: [phone]) 321-598812-17-2024 Telephone encounter Note* Telephone Encounter - Tammie [...] and advise, Tammie Munguia RN [facility]12-11-2024 Telephone encounter Note* Telephone Encounter - Kari [...] Thank you. Kari Briones LPN. [facility]12-11-2024 Miscellaneous Notes* Telephone Encounter - Kari Briones [...] Briones LPN. documented in this encounterKettering [facility]12-06-2024 Telephone encounter Note * Telephone Encounter - Tammie Munguia RN - 03/11/2024 9:20 AM EST Patient notified of results and provider's instructions. Patient verbalizes understanding. Tammie Munguia RN [facility]12-06-2024 Miscellaneous Notes* Telephone Encounter - Tammie Munguia [...] 2 weeks. documented in this encounterKettering [facility]12-06-2024 Telephone encounter Note * Telephone Encounter - Arti Baxter APRN.CNP - 03/11/2024 9:06 AM EST If inr range is 2-3 then she is in therapeutic range and should continue current dose. Ok to recheck in 2 weeks as already scheduled. Thank you Arti Baxter APRN.CNP [facility] Work Phone: [phone]) 792-184212-05-2024 Telephone encounter Note* Telephone Encounter - Tammie [...] recheck INR in 2 weeks. [facility]12-04-2024 Telephone encounter Note* Telephone Encounter - Mani Edwards MD - 03/09/2024 9:24 AM EST The following approved medication requests have been transmitted electronically. Requested Prescriptions Signed Prescriptions Disp Refills LORazepam (ATIVAN) 2 mg tab 90 tablet 1 Sig: Take 1 tablet by mouth at bedtime as needed (insomnia) for up to 180 days. Authorizing Provider: MANI EDWARDS MD [facility]12-04-2024 Miscellaneous Notes* Telephone Encounter - Mani Edwards [...] 10:32 AM documented in this encounterKettering [facility]12-03-2024 Telephone encounter Note * Telephone Encounter - [...] March 08, 2024 10:32 AM [facility]11-25[facility]2024 History of Present illness Narrative* Emerald Valera [...] PATIENT PRESENTS WITH AN IMPLANTABLE OR ATTACHED EGG SEPARATOR: No RADIOLOGY DEPARTMENT: CT; Exam(s) Completed: Brain PERIPHERAL IV DATA: Not applicable SIGNED BY: RT Poli(Jose J) February 29, 2024 12:06 PM documented in this encounterKettering Health [facility]11-21-2024 Telephone encounter Note * Telephone Encounter - Antoinette Meadows RN - 02/25/2024 3:20 PM EST Patient returns call to let office know that he received the message. Antoinette Meadows RN [facility]11-21-2024 Miscellaneous Notes* Telephone Encounter - Antoinette Meadows [...] or problems documented in this encounterKettering Health [facility]11-21-2024 Telephone encounter Note * Telephone Encounter - Ludmila Carson MA - 02/25/2024 2:34 PM EST Placed call to patient with no answer. Left VM with detailed instruction to continue same dose of coumadin and recheck inr in two weeks. Advised patient to call back and let us know he received the message. Ludmila Carson MA [facility]11-21-2024 Telephone encounter Note* Telephone Encounter - Alex Bernal MD - 02/25/2024 2:04 PM EST Same dose. Recheck in two weeks [facility] Work Phone: 1(940) 192-324811-21-2024 Telephone encounter Note* Telephone Encounter - Ramila Anand RN - 02/25/2024 12:53 PM EST Last INR: INR Home CoaguChek 2.9 02/25/2024 Current dose of coumadin is: 7.5 mg alternating with 5 mg every other day. Last date of dose change: unknown. Previous INR (date and result): 02/08 2.5 Additional Clinical Information or narrative: no changes or problems [facility]11-11-2024 Telephone encounter Note* Telephone Encounter - Molly Ann RN - 02/15/2024 5:10 PM EST [facility] calling to request clarification on Warfarin script. Pharmacist says they need toknow maximum dose per day to know how long 240 tablets should last. Please review and advise. MORIAH Leiva RN [facility]11-11-2024 Miscellaneous Notes* Telephone Encounter - Molly Ann RN - 02/15/2024 5:10 PM EST [facility] calling to request clarification on Warfarin script. Pharmacist says they need toknow maximum dose per day to know how long 240 tablets should last. Please review and advise. MORIAH Leiva RN documented in this encounterKettering Health [facility]11-11-2024 History of Present illness Narrative* Zeny Lam APRN.COMPUTER TECHNOLOGY TRAINER - 02/15/2024 2:32 PM EST SUBJECTIVE Alex [...] Compression Fracture of L1 Lumbar Vertebra (Formerly [facility]) - 07/15/2023 Sciatic Leg Pain - 07/15/2023 Bilateral Carotid Artery Stenosis - 06/15/2023 Acute Gastritis Without Hemorrhage - 04/20/2023 Spinal Stenosis of Lumbar Region - 09/24/2022 Pad (Peripheral Artery Disease) (Formerly [facility]) - 08/16/2021 Kidney Insufficiency - 04/04/2021 Posterior Vitreous Detachment of Right Eye - 06/19/2020 Age-Related Nuclear Cataract of Right Eye - 06/19/2020 Balance Problem - 03/12/2020 History of Left-Sided Carotid Endarterectomy - 06/10/2019 Colonic Polyp - 11/29/2018 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 02/15/2024 by Zeny Lam APRN.COMPUTER TECHNOLOGY TRAINER Portions of this note have been entered [...] Lam APRN-KAYLA documented in this encounterK[facility]11-[facility]24 Telephone encounter Note * Telephone Encounter - Osei Maciel LPN - 02/15/2024 9:19 AM EST Patient has OV this afternoon and can discuss medication needs at that time. Patient updated vis MyChart. Osei Maciel LPN [facility]11-11-2024 Miscellaneous Notes* Telephone Encounter - Osei Maciel LPN - 02/15/2024 9:19 AM EST Patient has OV this afternoon and can discuss medication needs at that time. Patient updated vis MyChart. Osei Maciel LPN documented in this encounterKet[facility]11-05-2024 Telephone encounter Note * Telephone Encounter - Gabby Rm LPN - 02/09/2024 3:18 PM EST PATIENT NOTIFIED OF SAME. Appt rescheduled for 02/15/24. [facility]11-05-2024 Miscellaneous Notes* Telephone Encounter - Gabby Rm [...] J Luevano documented in this encounterKettering [facility]11-05-2024 Telephone encounter Note * Telephone Encounter - [...] would rather discuss this sooner. [facility]11-05-2024 Telephone encounter Note* Telephone Encounter - Antoinette [...] $0 co-pay). Jose J Luevano [facility]11-04-2024 Telephone encounter Note* Telephone Encounter - Zeny Lam APRN.CNP - 02/08/2024 12:55 PM EST See other encounter. [facility]11-04-2024 Miscellaneous Notes* Telephone Encounter - Zeny Lam APRN.CNP - 02/08/2024 12:55 PM EST See other encounter. * Telephone Encounter - Brandi Lambert LPN - 02/08/2024 12:02 PM EST Pt is asking what to do about the pain. What can he take or what do you recommend . Brandi Lambert LPN documented in this encounterKettering [facility]11-04-2024 Telephone encounter Note * Telephone Encounter - Brandi Lambert LPN - 02/08/2024 12:02 PM EST Pt is asking what to do about the pain. What can he take or what do you recommend . Brandi Lambert LPN [facility]11-01-2024 Telephone encounter Note* Telephone Encounter - Zeny Lam APRN.CNP - 02/05/2024 3:02 PM EDT See my chart message encounter. [facility]11-01-2024 Miscellaneous Notes* Telephone Encounter - Zeny Lam [...] Munguia RN documented in this encounterKettering [facility]10-31-2024 Telephone encounter Note * Telephone Encounter - Tammie Munguia RN - 02/04/2024 9:28 AM EDT Patient calls and states that he has a friend that has a broken back that is worse than what he has. Patient is asking if provider knows of a good neurologist that she would recommend friend to see? Please review and advise, Tammie Munguia RN [facility]10-28-2024 History of Present illness Narrative* Aileen Roland [...] PATIENT PRESENTS WITH AN IMPLANTABLE OR ATTACHED EGG SEPARATOR: No RADIOLOGY DEPARTMENT: General X-ray: Exam(s) Completed: Spine X-Ray(s): Cervical AP / LAT / OBL PERIPHERAL IV DATA: Not applicable SIGNED BY: RT Neisha(R) February 01, 2024 3:02 PM documented in this encounterKettering [facility]10-28-2024 Telephone encounter Note * Telephone Encounter - Bement, Brandi, BRIDGE/STRUCTURE INSPECTION TEAM LEADER - 02/01/2024 11:40 AM EDT Pt message in another encounter. Brandi Lambert LPN [facility]10-28-2024 Miscellaneous Notes* Telephone Encounter - Brandi Lambert LPN - 02/01/2024 11:40 AM EDT Pt message in another encounter. Brandi Lambert LPN documented in this encounterKettering Health [facility]10-28-2024 Telephone encounter Note * Telephone Encounter - [...] provider that he will be done with [facility] on 04/05 so he can get these tests done know for free. Pt also wanted to let provider know that he is not taking Cymbalta because he was having fatigue and anxiety. Since stopping med pt reports those sx have gotten better. Brandi Lambert LPN [facility]10-28-2024 Miscellaneous Notes* Telephone Encounter - Brandi Lambert [...] provider that he will be done with [facility] on 04/05 so he can get these tests done know for free. Pt also wanted to let provider know that he is not taking Cymbalta because he was having fatigue and anxiety. Since stopping med pt reports those sx have gotten better. Brandi Lambert LPN documented in this encounterKettering [facility]10-28-2024 Telephone encounter Note * Telephone Encounter - Zeny Lam APRN.CNP - 02/01/2024 7:15 AM EDT Sent. [facility]10-28-2024 Miscellaneous Notes* Telephone Encounter - Zeny Lam [...] agree too, it is not an ideal rn long term care solution because of needing to take it [...] of Clonidine helps but it's not a senior living solution, I believe. Also, the creaking in my neck continues and I'm still getting the staccato like intermittent rushing feeling in my head. Which is very odd. Please let me know what you think. Rich Patient calling asking to make sure his my chart message was sent to Zeny Lam today if possible. documented in this encounterKettering [facility]10-25-2024 Telephone encounter Note * Telephone Encounter - Gabby Rm LPN - 01/29/2024 4:17 PM EDT PATIENT NOTIFIED OF SAME. Is ok with starting the nifedipine. [facility]10-25-2024 Telephone encounter Note* Telephone Encounter - Zeny [...] agree too, it is not an ideal senior living solution because of needing to take it several times a day. I would recommend we start another daily option to better control the bp, would recommend we start nifedipine daily in addition to his olmesartan and then okay to still use the clonidine as needed to bring down bp if having episodes ofelevation. [facility]10-25-2024 Telephone encounter Note* Telephone Encounter - Tala Torres LPN - 01/29/2024 2:53 PM EDT Converted to a phone message, closing this. [facility]10-25-2024 Miscellaneous Notes* Telephone Encounter - Tala Torres LPN - 01/29/2024 2:53 PM EDT Converted to a phone message, closing this. documented in this encounterKet[facility]10-25-2024 Telephone encounter Note * Telephone Encounter - [...] of Clonidine helps but it's not a senior living solution, I believe. Also, the creaking in my neck continues and I'm still getting the staccato like intermittent rushing feeling in my head. Which is very odd. Please let me know what you think. Rich Patient calling asking to make sure his my chart message was sent to Zeny Lam today if possible. [facility]10-24-2024 Telephone encounter Note* Telephone Encounter - Alvin [...] back to him so quickly. [facility]10-24-2024 Miscellaneous Notes* Telephone Encounter - Alvin He [...] Please advise documented in this encounterKettering [facility]10-24-2024 Telephone encounter Note * Telephone Encounter - [...] at least 2-3hours before repeating). [facility]10-24-2024 Telephone encounter Note* Telephone Encounter - Tala [...] him to do? Please advise [facility]10-22-2024 Telephone encounter Note* Telephone Encounter - Zeny Lam APRN.CNP - 01/26/2024 4:21 PM EDT Noted, I think those numbers are good, goal is to be less than 140 for SBP and 80 or less for DBP. [facility]10-22-2024 Miscellaneous Notes* Telephone Encounter - Zeny Lam [...] Velarde LPN documented in this encounterKet[facility]10-22-2024 Telephone encounter Note * Telephone Encounter - [...] is 136/76? Lizz Smith MA [facility]10-22-2024 Telephone encounter Note* Telephone Encounter - Zeny Lam APRN.KAYLA - 01/26/2024 3:36 PM EDT Please let him know INR back and stable at 2.4, continue current dose and okay to repeat INR 2 weeks. I'm glad bp is doing better with the changes we made. [facility]10-22-2024 Telephone encounter Note* Telephone Encounter - Corrina [...] notified differently. Corrina Velarde LPN [facility]10-22-2024 Telephone encounter Note* Telephone Encounter - Corrina [...] his chart. Corrina Velarde LPN [facility]10-16-2024 Instructions* Patient Instructions* Zeny Lam APRN.COMPUTER TECHNOLOGY TRAINER - 01/20/2024 1:33 PM EDT Switch from [...] if needed. documented in this encounterKettering Health [facility]10-16-2024 History of Present illness Narrative* Zeny Lam APRN.KAYLA - 01/20/2024 1:12 PM EDT SUBJECTIVE Alex Brooks is a 78 year old male here today for a check up on his medical problems. Chief Complaint Patient presents with: ED Follow-up: lightheadedness, elevated bp [facility] ER 01/08/24 HPI Alex Brooks is a 78 year old male. He is an established patient. He presents today for followup from being seen in the ER at [facility] on 01/08/2024. He had woke up [...] a day. Back Brace (BACK SUPPORT S/M) [facility] Use as instructed. (Patient not taking: Reported [...] Compression Fracture of L1 Lumbar Vertebra (Former[facility]) - 07/15/2023 Sciatic Leg Pain - 07/15/2023 Bilateral Carotid Artery Stenosis - 06/15/2023 Acute Gastritis Without Hemorrhage - 04/20/2023 Spinal Stenosis of Lumbar Region - 09/24/2022 Pad (Peripheral Artery Disease) (Former[facility]) - 08/16/2021 Kidney Insufficiency - 04/04/2021 Posterior Vitreous Detachment of Right Eye - 06/19/2020 Age-Related Nuclear Cataract of Right Eye - 06/19/2020 Balance Problem - 03/12/2020 History of Left-Sided Carotid Endarterectomy - 06/10/2019 Colonic Polyp - 11/29/2018 Assisted (Current) Use of Anticoagulants - 09/15/2018 Recurrent [...] Lam APRN-KAYLA documented in this encounterK[facility]10-08-2024 Telephone encounter Note * Telephone Encounter - Osei Maciel LPN - 01/12/2024 1:29 PM EDT Patient aware and will call and schedule Lab appt. Osei Maciel LPN [facility]10-08-2024 Miscellaneous Notes* Telephone Encounter - Osei Maciel [...] Meadows RN documented in this encounterKet[facility]10-08-2024 Telephone encounter Note * Telephone Encounter - Zeny Lam APRN.CNP - 01/12/2024 12:46 PM EDT Okay to continue the coumadin the same with alternating the 5 mg and 7.5 mg doses. Okay to repeat INR in 2 weeks. [facility]-08-2024 Telephone encounter Note* Telephone Encounter - Antoinette [...] your turn. Antoinette Meadows RN [facility]10-07-2024 Telephone encounter Note* Telephone Encounter - Zeny Lam APRN.CNP - 01/11/2024 1:44 PM EDT Yes, okay for the refill, can discuss further with the ER follow up. Refill sent. [facility]10-07-2024 Miscellaneous Notes* Telephone Encounter - Zeny Lam [...] Munguia RN documented in this encounterKet[facility]10-07-2024 Telephone encounter Note * Telephone Encounter - [...] and advise, Tammie Munguia RN [facility]10-02-2024 History of Present illness Narrative* Zeny Lam, ERIK.COMPUTER TECHNOLOGY TRAINER - 01/06/2024 11:26 AM EDT SUBJECTIVE Alex [...] once daily. Back Brace (BACK SUPPORT S/M) [facility] Use as instructed. (Patient not taking: Reported on 11/16/2023) No current facility-administered medications for this visit. ALLERGIES Allergen Reactions Cyclobenzaprine Other: See Comments Double vision Gabapentin Intolerance Keflex [Cephalexin] Rash ACTIVE PROBLEM LIST Compression Fracture of L1 Lumbar Vertebra (Former[facility]) - 07/15/2023 Sciatic Leg Pain - 07/15/2023 Bilateral Carotid Artery Stenosis - 06/15/2023 Acute Gastritis Without Hemorrhage - 04/20/2023 Spinal Stenosis of Lumbar Region - 09/24/2022 Pad (Peripheral Artery Disease) (Formerly [facility]) - 08/16/2021 Kidney Insufficiency - 04/04/2021 Posterior Vitreous Detachment of Right Eye - 06/19/2020 Age-Related Nuclear Cataract of Right Eye - 06/19/2020 Balance Problem - 03/12/2020 History of Left-Sided Carotid Endarterectomy - 06/10/2019 Colonic Polyp - 11/29/2018 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 Brandi Lambert LPN [facility]10-01-2024 Miscellaneous Notes* Telephone Encounter - Brandi Lambert [...] 1 week. documented in this encounterKet[facility]10-01-2024 Telephone encounter Note * Telephone Encounter - Zeny Lam APRN.CNP - 01/05/2024 12:18 PM EDT Please call patient and advise him to continue with current coumadin dosing by taking coumadin 7.5 mg every other day and 5 mg on the other days. Repeat INR in 1 week. [facility]09-27-2024 Telephone encounter Note* Telephone Encounter - Gabby Rm LPN - 01/01/2024 3:16 PM EDT PATIENT NOTIFIED OF SAME. Tracker updated. [facility]09-27-2024 Miscellaneous Notes* Telephone Encounter - Gabby Rm [...] missed doses. documented in this encounterKettering [facility]09-27-2024 Telephone encounter Note * Telephone Encounter - Zeny Lam APRN.CNP - 01/01/2024 2:21 PM EDT Please have him reduce his dose to taking coumadin 7.5 mg every other day and 5 mg on the other days, recommend he take the 5 mg today, 7.5 on thu, 5 on thu, 7.5 on Thursday and then repeat INR on Thursday. [facility]09-27-2024 Telephone encounter Note* Telephone Encounter - Alvin [...] or bruising, no missed doses. [facility]-23-2024 Telephone encounter Note* Telephone Encounter - Gabby [...] December 28, 2023 2:40 PM [facility]09-23-2024 Miscellaneous Notes* Telephone Encounter - Gabby Rm [...] 2:40 PM documented in this encounterKettering [facility]09-23-2024 Telephone encounter Note * Telephone Encounter - Cyndy Whelan RN - 12/28/2023 2:38 PM EDT Pt called and is notified of providers results and instructions. Pt voices understanding. Cyndy Whelan RN [facility]09-23-2024 Miscellaneous Notes* Telephone Encounter - Cyndy Whelan [...] narrative: NO documented in this encounterKettering [facility]09-23-2024 Telephone encounter Note * Telephone Encounter - Zeny Lam APRN.CNP - 12/28/2023 2:27 PM EDT Please call and have Rich take 10 mg of coumadin today, tomorrow, Thursday and and repeatINR on Thursday because of level being so low at 1.3. [facility]09-23-2024 Telephone encounter Note* Telephone Encounter - Molly Ann RN - 12/28/2023 12:46 PM EDT Last INR: INR 1.3 12/28/2023 Current dose of coumadin is: 7.5 mg Thu/Thu/Thu/Sat/Sun 5 mg / Last date of dose change: 12/21/23 Previous INR (date and result): INR 1.5 12/21/23 Additional Clinical Information or narrative: NO [facility]09-16-2024 Telephone encounter Note* Telephone Encounter - Gabby Rm LPN - 12/21/2023 1:08 PM EDT PATIENT NOTIFIED OF SAME. Tracker updated [facility]09-16-2024 Miscellaneous Notes* Telephone Encounter - Gabby Rm [...] mg Fri/Sat/Sun/Mon. documented in this encounterKettering [facility]09-16-2024 Telephone encounter Note * Telephone Encounter - Zeny Lam APRN.CNP - 12/21/2023 12:54 PM EDT I would recommend he resume his prior dosing of coumadin that he had been taking prior to his dental procedure and then repeat the INR in 1 week to ensure getting back in to desired range. [facility]-16-2024 Telephone encounter Note* Telephone Encounter - Cyndy [...] he took 7.5 mg Fri/Sat/Sun/Mon. [facility]09-09-2024 History of Present illness Narrative* Zeny Lam [...] 7 days. Back Brace (BACK SUPPORT S/M) [facility] Use as instructed. (Patient not taking: Reported on 11/16/2023) No current facility-administered medications for this visit. ALLERGIES Allergen Reactions Cyclobenzaprine Other: See Comments Double vision Gabapentin Intolerance Keflex [Cephalexin] Rash ACTIVE PROBLEM LIST Compression Fracture of L1 Lumbar Vertebra (Formerly [facility]) - 07/15/2023 Sciatic Leg Pain - 07/15/2023 Bilateral Carotid Artery Stenosis - 06/15/2023 Acute Gastritis Without Hemorrhage - 04/20/2023 Spinal Stenosis of Lumbar Region - 09/24/2022 Pad (Peripheral Artery Disease) (Formerly [facility]) - 08/16/2021 Kidney Insufficiency - 04/04/2021 Posterior Vitreous Detachment of Right Eye - 06/19/2020 Age-Related Nuclear Cataract of Right Eye - 06/19/2020 Balance Problem - 03/12/2020 History of Left-Sided Carotid Endarterectomy - 06/10/2019 Colonic Polyp - 11/29/2018 Assisted (Current) Use of Anticoagulants - 09/15/2018 Recurrent Pulmonary Embolism ([facility]) - 05/08/2014 Comment: 1st episode 2009, [...] Lam APRN-KAYLA documented in this encounterKet[facility]09-05-2024 Telephone encounter Note * Telephone Encounter - Haydee Lee LPN - 12/10/2023 4:52 PM EDT Health Maintenance updated. [facility]09-05-2024 Miscellaneous Notes* Telephone Encounter - Haydee Lee LPN - 12/10/2023 4:52 PM EDT Health Maintenance updated. * Telephone Encounter - Molly Ann RN - 12/10/2023 4:20 PM EDT Patient calling to say he received his COVID booster (Moderna) at [facility] today. Molly Ann RN documented in this encounterKet[facility]09-05-2024 Telephone encounter Note * Telephone Encounter - Molly Ann RN - 12/10/2023 4:20 PM EDT Patient calling to say he received his COVID booster (Moderna) at [facility] today. Molly Ann RN [facility]09-03-2024 Telephone encounter Note* Telephone Encounter - Maribel Oden LPN - 12/08/2023 2:26 PM EDT Spoke with pt and information listed below given. Pt verbalizes understanding. Tracker updated. Transferred to electron beam welding machine operator to get lab apt booked for 12-18-23. Maribel Oden LPN [facility]09-03-2024 Miscellaneous Notes* Telephone Encounter - Maribel Oden LPN - 12/08/2023 2:26 PM EDT Spoke with pt and information listed below given. Pt verbalizes understanding. Tracker updated. Transferred to electron beam welding machine operator to get lab apt booked for [...] Lambert LPN documented in this encounterKettering [facility]09-03-2024 Telephone encounter Note * Telephone Encounter - Gabby Rm LPN - 12/08/2023 2:16 PM EDT LEFT MESSAGE FOR PATIENT TO CALL OFFICE. [facility]-03-2024 Telephone encounter Note* Telephone Encounter - Zeny Lam APRN.CNP - 12/08/2023 12:39 PM EDT Since he still is in the goal parameters of 2-3 for INR we can continue current dose of the coumadin, but preference would be to repeat INR in 10 days instead of 2 weeks to ensure it is not increasing further. [facility]09-03-2024 Telephone encounter Note* Telephone Encounter - Brandi [...] his INR. Brandi Lambert LPN [facility]09-03-2024 Telephone encounter Note* Telephone Encounter - Zeny Lam APRN.CNP - 12/08/2023 12:10 PM EDT PDMP website checked and validated. All prescriptions have been APPROPRIATELY filled. No suspiciousactivity was identified. 12/08/2023 by Zeny Lam APRN.CNP [facility]09-03-2024 Miscellaneous Notes* Telephone Encounter - Zeny Lam APRN.CNP - 12/08/2023 12:10 PM EDT [facility] and [facility]. All prescriptions have [...] 10:36 AM documented in this encounterKettering [facility]09-03-2024 Telephone encounter Note * Telephone Encounter - [...] December 08, 2023 10:36 AM [facility]-28-2024 Telephone encounter Note* Telephone Encounter - Molly [...] 02, 2023 1:19 PM s [facility]08-28-2024 Miscellaneous Notes* Telephone Encounter - Molly Ann [...] PM s documented in this encounterKettering [facility]08-20-2024 Telephone encounter Note * Telephone Encounter - Tammie Munguia RN - 11/24/2023 1:18 PM EDT Patient notified of results and provider's instructions. Patient verbalizes understanding. Tammie Munguia RN [facility]08-20-2024 Miscellaneous Notes* Telephone Encounter - Tammie Munguia [...] Lam APRN.CNP documented in this encounterKettering [facility]08-20-2024 Telephone encounter Note * Telephone Encounter - Zeny Lam APRN.CNP - 11/24/2023 12:51 PM EDT INR is 2.4, continue on current dose of coumadin and repeat INR in 2 weeks. Let me know if any questions or concerns. Thanks! Zeny Lam APRN.CNP [facility]08-19-2024 Telephone encounter Note* Telephone Encounter - Alvin He RN - 11/23/2023 1:41 PM EDT Patient phoned checking to see if the x-tra 4 sessions were approved from [employer] yet. Advised per chart, it does not appear we have received approval letter at this time. Advised letter was faxed [employer] on 11-20-23. Patient agreeable. [facility]08-19-2024 Miscellaneous Notes* Telephone Encounter - Alvin He RN - 11/23/2023 1:41 PM EDT Patient phoned checking to see if the x-tra 4 sessions were approved from [employer] yet. Advised per chart, it does not appear we have received approval letter at this time. Advised letter was faxed [employer] on 11-20-23. Patient agreeable. documented in this encounterKet[facility]08-13-2024 Telephone encounter Note * Telephone Encounter - Zeny Lam APRN.CNP - 11/17/2023 10:58 AM EDT [facility]08-13-2024 Telephone encounter Note* Telephone Encounter - Zeny Lam APRN.CNP - 11/17/2023 10:58 AM EDT See other encounter regarding this. [facility]08-13-2024 Miscellaneous Notes* Telephone Encounter - Zeny Lam APRN.CNP - 11/17/2023 10:58 AM EDT See other encounter regarding this. documented in this encounterKettering [facility]08-13-2024 Miscellaneous Notes* Telephone Encounter - Zeny Lam APRN.CNP - 11/17/2023 10:58 AM EDT documented in this encounterKettering Health [facility]08-12-2024 Instructions* Patient Instructions* Micah Portillo APRN.CNP, DNP [...] APRN.CARA GARZA documented in this encounterKettering Health [facility]08-12-2024 History of Present illness Narrative* Emerald Hunt [...] APRN.CARA GARZA - 11/16/2023 12:42 PM EDT [facility] MALE PATIENT - [...] PSA returned to normal. Was on [place] - did not notice any difference. Restarted taking [place] 400mgs. Started on Flomax at last appt. [...] to knees, as of 2008 --- in [place], neurologist thought related to alcohol; Has had [...] which included preparing to see the patient, [id number] patient care, completing clinical documentation, performing a [...] DNP, KAYLA Department of Urology [facility] documented in this encounterKettering [facility]08-08-2024 NoteHNO ID: [id number] Author: WALT YANG R Ac Service: ? [...] reducing alcohol intake. He was living in [facility] since he was born and moved to [place] for job-related which he regret as business environment and living was not the same. About 10 year ago, he moved to [place] and that was when he started experiencing exacerbation of all the condition. 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 No diabetes Coumadin [facility] [address] [facility] [address] Dept: [phone] Alex Brooks : 1945 [facility] Acupuncture Intake Form (For Patient Review Regarding Diagnostic Exam) I have received a diagnostic exam by physician or chiropractor within the last six months regarding the condition for which I am seeking treatment. Patient Signature: Alex Brooks Date: 11/12/23 Recruiting Specialist Signature: Walt Yang Lac. Date: 11/12/23 The patient's history is well detailed in the EMR. Current view: Showing all answers [facility] Additional Demo Question 11/05/2023 10:20 AM EDT - Filed by Patient Is this visit related to an accident, other than Workers' Compensation? No Is this visit related to Workers' Compensation? No Do you need an photo technician? No [facility] Promis Cat V2.0-Physical Function-28 Days [...] explain: I had recent (more content not included)...[id number] History of Present illness Narrative* Walt Yang [...] reducing alcohol intake. He was living in [facility] since he was born and moved to [place] for job-related which he regret as business environmentand living was not the same. About 10 year ago, he moved to [place] and that was when he started experiencing exacerbation of all the condition. 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 No diabetes Coumadin [facility] [address] [facility] [address] Dept: [phone] Alex Brooks : 1945 [facility] Acupuncture Intake Form (For Patient Review Regarding Diagnostic Exam) I have received a diagnostic exam by physician or chiropractor within the last six months regardingthe condition for which I am seeking treatment. Patient Signature: Alex Brooks Date: 11/12/23 Recruiting Specialist Signature: Walt Yang Lac. Date: 11/12/23 The patient's history is well detailed in the EMR. Current view: Showing all answers [facility] Mychart Additional Demo Question 11/05/2023 10:20 AM EDT - Filed by Patient Is this visit related to an accident, other than Workers' Compensation? No Is this visit related to Workers' Compensation? No Do you need an photo technician? No [facility] Promis Cat V2.0-Physical Function-28 Days [...] to face with patient for set 2 [place] were retained for 30 minutes # of [...] face time spent with patient Acupuncture and Yemeni herbal therapy are not a substitute for [...] for which patient is seeking treatment, the Recruiting Specialist, per [place] Law, recommends that this diagnostic exam be performed. documented in this encounterK[facility]08-06-2024 Telephone encounter Note * Telephone Encounter - Haydee Lee LPN - 11/10/2023 4:27 PM EDT Patient notified of coumadin instructions and verbalized understanding. [facility] Miscellaneous Notes* Telephone Encounter - Haydee Lee [...] phone instructions. documented in this encounterKettering [facility]08-06-2024 Telephone encounter Note * Telephone Encounter - Bonnie Sharif APRN.CNS - 11/10/2023 3:31 PM EDT Continue with Coumadin dosage change recheck INR and check INR 2 weeks [facility] Work Phone: 1(303) 212-220908-06-2024 Telephone encounter Note* Telephone Encounter - Maribel [...] message on pt's phone instructions. [facility]-26-[facility] Telephone encounter Note* Telephone Encounter - Gabby Rm LPN - 10/30/2023 2:56 PM EDT PATIENT NOTIFIED OF SAME. [facility]-26-2024 Miscellaneous Notes* Telephone Encounter - Gabby Rm [...] Please advise documented in this encounterKettering [facility]07-26-2024 Telephone encounter Note * Telephone Encounter - Zeny Lam APRN.CNP - 10/30/2023 2:30 PM EDT Continue with current dose of coumadin and repeat INR in 10 days. [facility] Telephone encounter Note* Telephone Encounter - Corrina Whipple - 10/30/2023 12:30 PM EDT Patient called to give results of INR from today 10/29 INR is 2.0 Coumadine dose is 7.5mg everyday but Tue and Thur 5mg He also said he has not drank much wine lately Please advise [facility] Work Phone: 1(535) 972-913507-25-2024 Telephone encounter Note* Telephone Encounter - Antoinette [...] October 29, 2023 3:28 PM [facility]-25-[facility]24 Miscellaneous Notes* Telephone Encounter - Antoinette Meadows [...] 3:28 PM documented in this encounterKettering [facility]07-19-2024 Telephone encounter Note * Telephone Encounter - Gabby Rm LPN - 10/23/2023 1:08 PM EDT PATIENT NOTIFIED OF SAME. Tracker has been updated. [facility]-19-2024 Miscellaneous Notes* Telephone Encounter - Gabby Rm [...] Thank you. documented in this encounterKettering [facility]07-19-2024 Telephone encounter Note * Telephone Encounter - [...] repeat his INRin 1 week. [facility] Telephone encounter Note* Telephone Encounter - Graciela [...] Please advise patient. Thank you. [facility]-02-20[facility] Telephone encounter Note* Telephone Encounter - Tammie [...] October 06, 2023 4:48 PM [facility]-02-2024 Miscellaneous Notes* Telephone Encounter - Tammie Munguia [...] 4:48 PM documented in this encounterKettering [facility]07-01-2024 Telephone encounter Note * Telephone Encounter - Ramila Zapata LPN - 10/05/2023 1:17 PM EDT Patient notified of results, verbalizes understanding of instructions. Ramila Zapata LPN [facility]-01-2024 Miscellaneous Notes* Telephone Encounter - Ramila Zapata [...] 2 weeks. * Telephone Encounter - Tammie uMnguia RN - 10/05/2023 11:15 AM EDT Last [...] Munguia RN documented in this encounterKettering Health [facility]ble07-01-2024 Telephone encounter Note * Telephone Encounter - Zeny Lam APRN.CNP - 10/05/2023 12:20 PM EDT Okay to increase coumadin dose to 7.5 mg on 4 days a week (Thu, Sat, Thu, and Mon) then 5 mg other days (, Thu, ). Repeat INR in 2 weeks. [facility]-01-[facility] Telephone encounter Note* Telephone Encounter - Tammie [...] and advise, Tammie Munguia RN [facility]06-21-2024 Telephone encounter Note* Telephone Encounter - Lor Patel - 09/25/2023 2:54 PM EDT Pt stated that [employer] has sent approval for accupunture. He states [facility] the CPT codes. Billing keeps giving him the run around. Statesthe exact same thing happened [address] Martinez. Pt states Zeny is aware of situation. Patient is asking if Zeny can call [facility]. Number is [phone]. [facility]-21-[facility] Miscellaneous Notes* Telephone Encounter - Lor Patel - 09/25/2023 2:54 PM EDT Pt stated that [employer] has sent approval for accupunture. He states billing [facility]. Billing keeps giving him the run around. Statesthe exact same thing happened [address] Martinez. Pt states Zeny is aware of situation. Patient is asking if Zeny can call [facility]. Number is [phone]. documented in this encounterKettering [facility]06-21-2024 Telephone encounter Note * Telephone Encounter - Zeny Lam APRN.CNP - 09/25/2023 7:13 AM EDT Approval received. [facility] Miscellaneous Notes* Telephone Encounter - Zeny Lam [...] his insurance. documented in this encounterKettering [facility]06-20-2024 Telephone encounter Note * Telephone Encounter - Tala Torres LPN - 09/24/2023 3:18 PM EDT Patient calling wanted to let Zeny know that she should be getting an approval letter for his acupuncture. Patient said not sure if he will be able to have it done, having issues with his insurance. [facility]-19[facility] Telephone encounter Note* Telephone Encounter - Zeny Lam APRN.CNP - 09/23/2023 12:29 PM EDT Noted and agree with same dose and repeat in 2 weeks. [facility]-19-[facility] Miscellaneous Notes* Telephone Encounter - Zeny Lam [...] Meadows RN documented in this encounterKettering Health [facility]ble06-19-2024 Telephone encounter Note * Telephone Encounter - [...] hears otherwise. Antoinette Meadows, RN [facility]06-18-2024 Telephone encounter Note* Telephone Encounter - Katherine Mckeon OCCA - 09/22/2023 4:16 PM EDT Letter faxed back to [facility] asking them to recheck their records as listed NPI is correct as verified by providers office. YENNY Abdi [facility]-18-2024 Miscellaneous Notes* Telephone Encounter - Katherine Mckeon OCCA - 09/22/2023 4:16 PM EDT Letter faxed back to [facility] asking them to recheck their records as listed NPI is correct as verified by providers office. YENNY Abdi * Telephone Encounter - Katherine Mckeon OCCA - 09/22/2023 4:03 PM EDT Nurse returned call and stated providers NPI is [id number]. YENNY Abdi * Telephone Encounter - Katherine Mckeon OCCA - 09/22/2023 3:35 PM EDT TC to ALAYNA Chase's office at [phone] with no answer. Left detailed VM for nurse to return call to our office to provide NPI number as requested by insurance. YENNY Abdi * Telephone Encounter - Zeny Lam APRN.COMPUTER TECHNOLOGY TRAINER - 09/22/2023 12:12 PM EDT Rich is trying to get acupuncture approved through his insurance, they are requesting the NPI for the provider performing the procedure. Apparently the NPI I was able to find is not correct. He is going to see ALAYNA Chase LA c at [facility] located at [facility]. [address] [place] [address], and , on 11/12/2023 at 1:00 pm. Can we please see if we can get his NPI number for the letter to insurance. The number I was told is incorrect is: documented in this encounterKettering [facility]06-18-2024 Telephone encounter Note * Telephone Encounter - Katherine Mckeon OCCA - 09/22/2023 4:03 PM EDT Nurse returned call and stated providers NPI is [id number]. YENNY Abdi [facility]-18-[facility] Telephone encounter Note* Telephone Encounter - Katherine Mckeon OCCA - 09/22/2023 3:35 PM EDT TC to ALAYNA Chase's office at [phone] with no answer. Left detailed VM for nurse to return call to our office to provide NPI number as requested by insurance. YENNY Adbi [facility]-18-2024 Telephone encounter Note* Telephone Encounter - Zeny Lam APRN.CNP - 09/22/2023 12:12 PM EDT Rich is trying to get acupuncture approved through his insurance, they are requesting the NPI for the provider performing the procedure. Apparently the NPI I was able to find is not correct. He is going to see ALAYNA Chase LA c at [facility] located at [facility]. [address] [place] [address], and , on 11/12/2023 at 1:00 pm. Can we please see if we can get his NPI number for the letter to insurance. The number I was told is incorrect is: [facility] Telephone encounter Note* Telephone Encounter - Gabby Rm LPN - 09/16/2023 10:47 AM EDT Updated letter has been faxed to [facility]. [facility]-12[facility]24 Miscellaneous Notes* Telephone Encounter - Gabby Rm LPN - 09/16/2023 10:47 AM EDT Updated letter has been faxed to [facility]. * Telephone Encounter - Katherine Mckeon OCCA - 09/15/2023 9:50 AM EDT Please see TE dated 09/10, patient requesting office to not speak to [facility] until after he speaks with Lauryn Lam at appointment today, 09/14. YENNY Abdi * Telephone Encounter - Gabby Rm LPN - 09/08/2023 4:16 PM EDT Letter was sent to [facility] but a fax was sent back from [facility] stating that there are illegible and/or missing [...] Lambert LPN documented in this encounterKettering Health [facility]06-11-2024 Note* Addendum Note - Zeny Lam APRN.CNP - 09/15/2023 4:33 PM EDTAddended by: ZENY LAM on: 09/15/2023 04:33 PM Modules accepted: Orders [facility]06-11-2024 Miscellaneous Notes* Addendum Note - Zeny Lam APRN.CNP - 09/15/2023 4:33 PM EDTAddended by: ZENY LAM on: 09/15/2023 04:33 PM Modules accepted: Orders documented in this encounterKettering Health [facility]ble06-11-2024 Telephone encounter Note * Telephone Encounter - Zeny Lam APRN.CNP - 09/15/2023 1:54 PM EDT Yes, I will be ordering those with his visit from today. [facility]-11-2024 Miscellaneous Notes* Telephone Encounter - Zeny Lam APRN.CNP - 09/15/2023 1:54 PM EDT Yes, I will be ordering those with his visit from today. * Telephone Encounter - Gabby Rm LPN - 09/15/2023 1:40 PM EDT Patient is asking about labs to complete prior to appointment in 02/2024. documented in this encounterKettering [facility]ble06-11-2024 Telephone encounter Note * Telephone Encounter - Gabby Rm LPN - 09/15/2023 1:40 PM EDT Patient is asking about labs to complete prior to appointment in 02/2024. [facility] History of Present illness Narrative* Zeny Lam [...] the evening Back Brace (BACK SUPPORT S/M) [facility] Use as instructed. 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 7. 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 Zeny Lam APRN-COMPUTER TECHNOLOGY TRAINER documented in this encounterKettering Health [facility]ble06-11-2024 Telephone encounter Note * Telephone Encounter - Gabby Rm LPN - 09/15/2023 11:29 AM EDT Noted. [facility]-11[facility]24 Miscellaneous Notes* Telephone Encounter - Gabby Rm LPN - 09/15/2023 11:29 AM EDT Noted. * Telephone Encounter - Alvin He, MORIAH - 09/11/2023 1:29 PM EDT Patient wants message sent to Gabby, letting you know, not to respond to [facility] about accupuncture, until he speaks with Zeny at next appt. documented in this encounterKettering Health [facility]ble06-11-2024 Telephone encounter Note * Telephone Encounter - Zeny Lam APRN.CNP - 09/15/2023 10:27 AM EDT Patient is coming in today for an OV so we will address this then. [facility]-11[facility]24 Miscellaneous Notes* Telephone Encounter - Zeny Lam [...] ok to switch to that. Forwarding to [place] to notify paperwork is being faxed. Antoinette Meadows RN documented in this encounterKettering Health [facility]06-11-2024 Telephone encounter Note * Telephone Encounter - Katherine Mckeon OCCA - 09/15/2023 9:50 AM EDT Please see TE dated 09/10, patient requesting office to not speak to [facility] until after he speaks with Lauryn Lam at appointment today, 09/14. YENNY Abdi [facility]-11-2024 Telephone encounter Note* Telephone Encounter - Katherine Mckeon OCCA - 09/15/2023 9:49 AM EDT Please review below and advise if provider wanting to change dosage as recommended by pharmacy. Do not see in chart that fax was received. YENNY Abdi [facility]-07-2024 Telephone encounter Note* Telephone Encounter - Osei Maciel LPN - 09/11/2023 5:40 PM EDT No need to call patient per note below. Osei Maciel LPN [facility]06-07-2024 Miscellaneous Notes* Telephone Encounter - Osei Maciel [...] something different). documented in this encounterKettering Health [facility]ble06-07-2024 Telephone encounter Note * Telephone Encounter - Mani Edwards MD - 09/11/2023 5:03 PM EDT Okay to stay on same dose as planned by patient as noted below and discuss with Zeny at follow up appointment. [facility] Work Phone: [phone] Telephone encounter Note* Telephone Encounter - Alvin He RN - 09/11/2023 1:29 PM EDT Patient wants message sent to Gabby, letting you know, not to respond to [facility] about accupuncture, until he speaks with Zeny at next appt. [facility]-07-2024 Telephone encounter Note* Telephone Encounter - Alvin [...] (unless provider wants something different). [facility]-04-2024 Telephone encounter Note* Telephone Encounter - Gabby [...] for patient as to same. [facility]-04-2024 Telephone encounter Note* Telephone Encounter - Brandi [...] the letter. Brandi Lambert LPN [facility]-03-2024 Telephone encounter Note* Telephone Encounter - Antoinette [...] ok to switch to that. Forwarding to [place] to notify paperwork is being faxed. Antoinette Meadows RN [facility]06-03-2024 Telephone encounter Note* Telephone Encounter - Tammy Wang MA - 09/07/2023 10:34 AM EDT Pharmacy request denied. Patient needs to contact office for refills. Tammy Wang MA [facility]06-03-2024 Miscellaneous Notes* Telephone Encounter - Tammy Wang MA - 09/07/2023 10:34 AM EDT Pharmacy request denied. Patient needs to contact office for refills. Tammy Wang MA documented in this encounterKettering Health [facility]ble05-31-2024 Telephone encounter Note * Telephone Encounter - Gabby Rm LPN - 09/04/2023 2:41 PM EDT Letter has been faxed to [facility] [phone]. [facility]-31-2024 Miscellaneous Notes* Telephone Encounter - Gabby Rm LPN - 09/04/2023 2:41 PM EDT Letter has been faxed to [facility] [phone]. * Telephone Encounter - Zeny Lam APRN.CNP - 09/04/2023 2:00 PM EDT Letter printed, please send or have him pick this up. Thanks. * Telephone Encounter - Gabby Rm LPN - 09/04/2023 1:39 PM EDT Spoke with patient and he stated that [facility] is asking for a Out of Network prior authorization letter to see an Out of network heel seat laster. In the letter it needs to state who he is seeing, when, where and why he is using this out of network provider. Patient is scheduled to see Walt Yang at [facility] on 11/12/2023 at 1:00 pm. Patient is requesting this provider as all other in network providers is too far travel to.He is familiar with and [facility]. [employer] [facility] ph. [phone]. documented in this encounterKettering Health [facility]ble05-31-2024 Telephone encounter Note * Telephone Encounter - Zeny Lam APRN.KAYLA - 09/04/2023 2:00 PM EDT Letter printed, please send or have him pick this up. Thanks. [facility]-31-2024 Telephone encounter Note* Telephone Encounter - Gabby Rm LPN - 09/04/2023 1:39 PM EDT Spoke with patient and he stated that [facility] is asking for a Out of Network prior authorization letter to see an Out of network heel seat laster. In the letter it needs to state who he is seeing, when, where and why he is using this out of network provider. Patient is scheduled to see Walt Yang at [facility] on 11/12/2023 at 1:00 pm. Patient is requesting this provider as all other in network providers is too far travel to.He is familiar with and [facility]. [facility] ph. [phone]. [facility]-31-20[facility] Telephone encounter Note* Telephone Encounter - Gabby Rm LPN - 09/04/2023 1:19 PM EDT PATIENT NOTIFIED OF SAME. [facility]-31-2024 Miscellaneous Notes* Telephone Encounter - Gabby Rm [...] 13-14 weeks. documented in this encounterKettering Health [facility]ble05-31-2024 Telephone encounter Note * Telephone Encounter - Zeny Lam APRN.CNP - 09/04/2023 12:43 PM EDT Since we made adjustments in his duloxetine dose I would like to continue with his current coumadindose and repeat the INR again in 2 weeks. Please let him know. Thanks [facility]-31[facility]2024 Telephone encounter Note* Telephone Encounter - Cyndy [...] the first in 13-14 weeks. [facility]-31-2024 Telephone encounter Note* Telephone Encounter - Gabby Rm LPN - 09/04/2023 8:18 AM EDT PATIENT NOTIFIED OF SAME. [facility]-31-2024 Miscellaneous Notes* Telephone Encounter - Gabby Rm [...] It was suggested that he see an heel seat laster. He is asking if you know of [...] Please advise. documented in this encounterKettering Health [facility]05-31-2024 Telephone encounter Note * Telephone Encounter - Zeny Lam APRN.CNP - 09/04/2023 8:14 AM EDT Please let him know a new script has been sent for him to try Cymbalta 40 mg twice daily. [facility]-29-2024 Telephone encounter Note* Telephone Encounter - Molly Ann RN - 09/02/2023 4:53 PM EDT Patient returned call. He is willing to try split dose of Cymbalta. He says the 60 mg dose he is currently taking is effective and seems to be lasting a little longer since his original message sent.[facility]. Molly Ann RN [facility]05-29-2024 Telephone encounter Note* Telephone Encounter - Gabby Rm LPN - 09/02/2023 4:47 PM EDT LEFT MESSAGE FOR PATIENT TO CALL OFFICE. [facility]-29-2024 Telephone encounter Note* Telephone Encounter - Zeny Lam APRN.COMPUTER TECHNOLOGY TRAINER - 09/02/2023 4:39 PM EDT As for helping the duloxetine be more effective we could split the dosing and see if that is helpful. We could try something like taking 40 mg in the am and then 40 mg in the pm and see how that helps. Let me know what he thinks. Thanks. [facility]-29-2024 Telephone encounter Note* Telephone Encounter - Gabby Rm LPN - 09/02/2023 2:41 PM EDT This has been completed [facility]05-29-2024 Miscellaneous Notes* Telephone Encounter - Gabby Rm [...] Ann, RN documented in this encounterKettering Health [facility]05-29-2024 Telephone encounter Note * Telephone Encounter - Molly Ann RN - 09/02/2023 1:00 PM EDT Patient calling to ask if COVID Immunization reminder (Health Maintenance) can be removed from his medical record? He says he received the vaccine on 06/24/23 and it is on his immunization record. Molly Ann, RN [facility]05-28-2024 Telephone encounter Note* Telephone Encounter - Gabby [...] with medication to last longer? [facility]-28-2024 Telephone encounter Note* Telephone Encounter - Zeny Lam APRN.CNP - 09/01/2023 11:56 AM EDT See other encounter. [facility]-28-2024 Miscellaneous Notes* Telephone Encounter - Zeny Lam [...] in epic. documented in this encounterKettering Health [facility]05-28-2024 Telephone encounter Note * Telephone Encounter - [...] he need a script sent? [facility]-24-[facility]24 Telephone encounter Note* Telephone Encounter - Gabby Rm LPN - 08/28/2023 12:19 PM EDT Rich called to state that he did have a good visit with Dr. Moraes on 08/27/23. It was suggested that he see an heel seat laster. He is asking if you know of [...] lorazepam or warfarin. Please advise. [facility]-23-[facility]24 Telephone encounter Note* Telephone Encounter - Alvin [...] Moraes today? Notes in epic. [facility]-23-2024 Instructions* Patient Instructions* Irene Moraes MD - 08/27/2023 2:15 PM EDT Will refer to acupuncture and physical therapy for dry needling RTC 3 months or as need documented in this encounterKettering Health [facility]ble05-23-2024 History of Present illness Narrative* Irene Moraes [...] to knees, as of 2008 --- in [place], neurologist thought related to alcohol; Has had [...] tablet 1 Back Brace (BACK SUPPORT S/M) [facility] Use as instructed. 1 Each 0 lisinopril [...] walk between clinic and parking at [address]. -Awake, alert and oriented x 3, ASSESSMENT / PLAN: Low back pain and compression fracture on L1 - continue to use Aspercream , interested in acupuncture and dry needling - will refer to PT for dry needling and acupuncture. Discussed that can not do both treatments at the same time. Discussed to check with insurance if he is covered for acupuncture done by heel seat laster or need to see MD for that. Also discusse that he is on senior living Coumadin therapy and heel seat laster know. Will refer to acupuncture and physical therapy for dry needling RTC 3 months or as need I spent 60 minutes in the visit, with more than 50% of the total [id number] time of the visit in counseling / coordination of care. All of the patient's questions and concerns were addressed Follow up visit planning discussed Irene Moraes MD documented in this encounterKet[facility]05-22-2024 Telephone encounter Note * Telephone Encounter - Gabby Rm LPN - 08/26/2023 4:07 PM EDT PATIENT NOTIFIED OF SAME. [facility] Miscellaneous Notes* Telephone Encounter - Gabby Rm [...] further testing. documented in this encounterKettering Health [facility]05-22-2024 Telephone encounter Note * Telephone Encounter - [...] can do some further testing. [facility] History of Present illness Narrative* Shefali Jimenez [...] PATIENT PRESENTS WITH AN IMPLANTABLE OR ATTACHED EGG SEPARATOR: No RADIOLOGY DEPARTMENT: General X-ray: Exam(s) Completed: Chest X-Ray PERIPHERAL IV DATA: Not applicable SIGNED BY: RT Boy(Jose J) August 25, 2023 10:26 AM documented in this encounterKettering Health [facility]ble05-21-2024 History of Present illness Narrative* Zeny Lam [...] Was seen with PT. 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 Taking generic Flonase. Some post-nasal drip. [...] - 09/24/2022 Pad (Peripheral Artery Disease) (Formerly [facility]) - 08/16/2021 Kidney Insufficiency - 04/04/2021 Posterior Vitreous Detachment of Right Eye - 06/19/2020 Age-Related Nuclear Cataract of Right Eye - 06/19/2020 Balance Problem - 03/12/2020 History of Left-Sided Carotid Endarterectomy - 06/10/2019 Colonic Polyp - 11/29/2018 Assisted (Current) Use of Anticoagulants - 09/15/2018 Recurrent Pulmonary Embolism (Formerly [facility]) - 05/08/2014 Comment: 1st episode 2009, [...] which included preparing to see the patient, [id number] patient care, completing clinical documentation, obtaining and/or [...] Lam APRN-KAYLA documented in this encounterKettering Health [facility]05-20-2024 Telephone encounter Note * Telephone Encounter - Gabby Rm LPN - 08/24/2023 1:39 PM EDT PATIENT NOTIFIED OF SAME. Tracker updated [facility] Miscellaneous Notes* Telephone Encounter - Gabby Rm [...] on Thursday08/21/2023. documented in this encounterKettering Health [facility]ble05-20-2024 Telephone encounter Note * Telephone Encounter - Zeny Lam APRN.CNP - 08/24/2023 1:28 PM EDT He should continue with the current dose of coumadin and repeat the INR in 2 weeks. Thanks [facility] Telephone encounter Note* Telephone Encounter - Antoinette [...] oxycodone and tizanidine on Thursday08/21/2023. [facility] Telephone encounter Note* Telephone Encounter - Zeny Lam APRN.CNP - 08/18/2023 3:52 PM EDT PDMP website checked and validated. All prescriptions have been APPROPRIATELY filled. No suspiciousactivity was identified. 08/18/2023 by Zeny Lam APRN.CNP [facility]-14-[facility]24 Miscellaneous Notes* Telephone Encounter - Zeny Lam [...] Parker RN. documented in this encounterKettering Health [facility]ble05-14-2024 Telephone encounter Note * Telephone Encounter - [...] care: 09/15/2023 Graciela Parker RN. [facility]-10-2024 Miscellaneous Notes* Telephone Encounter - Gabby Rm [...] or bleeding. documented in this encounterKettering Health [facility]ble05-10-2024 Telephone encounter Note * Telephone Encounter - Gabby Rm LPN - 08/14/2023 3:45 PM EDT PATIENT NOTIFIED OF SAME. Tracker updated. [facility]-10[facility] Telephone encounter Note* Telephone Encounter - Zeny Lam APRN.CNP - 08/14/2023 3:16 PM EDT Please advise him to take the 7.5 mg dose on 2 days of the week (can do Sat and Sun) and then the 5mg all other days and repeat INR in 1 week. Zeny Lam APRN.KAYLA [facility]-10-[facility]24 Telephone encounter Note* Telephone Encounter - Tala [...] no problems bruising or bleeding. [facility] Telephone encounter Note* Telephone Encounter - Joce [...] Thank you. Joce Schmid MA. [facility]05-09-2024 Miscellaneous Notes* Telephone Encounter - Joce Schmid [...] Schmid MA. documented in this encounterKettering Health [facility]05-07-2024 Telephone encounter Note * Telephone Encounter - Zeny Lam APRN.CNP - 08/11/2023 11:58 AM EDT [facility] website checked and validated. All prescriptions have been APPROPRIATELY filled. No suspiciousactivity was identified. 08/11/2023 by Zeny Lam APRN.CNP [facility] Miscellaneous Notes* Telephone Encounter - Zeny Lam APRN.CNP - 08/11/2023 11:58 AM EDT [facility] website checked and validated. All prescriptions have [...] Anand RN. documented in this encounterKettering Health [facility]ble05-07-2024 Telephone encounter Note * Telephone Encounter - [...] Thank you. Ramila Anand RN. [facility]-06-2024 Instructions* Patient Instructions* Micah Portillo APRN.CNP, DNP [...] APRN.CARA GARZA documented in this encounterKettering Health [facility]ble05-06-2024 Nurse Note* Marcell Munguia MA - 08/10/2023 1:01 PM EDT 76 mL of urine in the bladder 40 MINUTES after voiding [facility] Nurse Note* Marcell Munguia MA - 08/10/2023 1:01 PM EDT 76 mL of urine in the bladder 40 MINUTES after voiding documented in this encounterKettering Health [facility]ble05-06-2024 History of Present illness Narrative* Micah Portillo APRN.CARA GARZA - 08/10/2023 12:57 PM EDT [facility] MALE PATIENT - HISTORY AND PHYSICAL EXAMINATION PATIENT: Alex Brooks (77 year old) 08/10/2023 PCP: Zeny Lam APRN.KAYLA Consultation requested by Dr. Franc Hills [address] [facility] [id number] for an opinion regarding BPH/LUTS and my [...] any BPH/LUTS oral medications. Was on [place] - did not notice any difference. PRESENTING [...] to knees, as of 2008 --- in [place], neurologist thought related to alcohol; Has had [...] as needed. Back Brace (BACK SUPPORT S/M) [facility] Use as instructed. lisinopril (ZESTRIL) 20 mg [...] which included preparing to see the patient, [id number]-np-[id number] patient care, completing clinical documentation, performing a medically appropriate examination, counseling and educating the patient/family/caregiver and ordering medications, tests, or procedures. Micah Portillo DNP, KAYLA Department of Urology [facility] documented in this encounterKettering [facility]04-30-2024 Telephone encounter Note * Telephone Encounter - Zeny Lam APRN.CNP - 08/04/2023 1:17 PM EDT [facility] website checked and validated. All prescriptions have been APPROPRIATELY filled. No suspiciousactivity was identified. 08/04/2023 by Zeny Lam APRN.CNP [facility]-30-[facility]24 Miscellaneous Notes* Telephone Encounter - Zeny Lam APRN.CNP - 08/04/2023 1:17 PM EDT [facility] website checked and validated. All prescriptions have [...] Anand RN. documented in this encounterKettering Health [facility]ble04-30-2024 Telephone encounter Note * Telephone Encounter - [...] Thank you. Ramila Anand RN. [facility]04-25-[facility]24 Telephone encounter Note* Telephone Encounter - Molly Ann RN - 07/30/2023 1:25 PM EDT Spoke with patient. Given message from provider's office. Patient verbalizes understanding. He confirmed he received VM message. Molly Ann RN [facility]04-25-2024 Miscellaneous Notes* Telephone Encounter - Molly Ann RN - 07/30/2023 1:25 PM EDT Spoke with patient. Given message from provider's office. Patient verbalizes understanding. He confirmed he received VM message. Molly Ann RN * Telephone Encounter - Celia James LPN - 07/30/2023 1:22 PM EDT Left detailed message regarding coumadin instructions and was advised to call back to confirm message was received. Celia Jmaes LPN * Telephone Encounter - Bonnie Sharif [...] Oden LPN documented in this encounterKettering Health [facility]ble04-25-2024 Telephone encounter Note * Telephone Encounter - Celia James LPN - 07/30/2023 1:22 PM EDT Left detailed message regarding coumadin instructions and was advised to call back to confirm message was received. Celia James LPN [facility]04-25-2024 Telephone encounter Note* Telephone Encounter - Bonnie Sharif APRN.SHANA - 07/30/2023 12:47 PM EDT Continue with current Coumadin dosing unchanged. Regarding dental appointment: Recommend checking INR 5 to 7 days after resuming Coumadin. He may resume Coumadin at 5 mg daily. [facility] Telephone encounter Note* Telephone Encounter - Maribel Oden LPN - 07/30/2023 11:39 AM EDT See phone encounter 07-30-23 anticoagulation. Maribel Oden LPN [facility]-25-[facility]24 Miscellaneous Notes* Telephone Encounter - Maribel Oden LPN - 07/30/2023 11:39 AM EDT See phone encounter 07-30-23 anticoagulation. Maribel Oden LPN documented in this encounterKettering Health [facility]ble04-25-2024 Telephone encounter Note * Telephone Encounter - [...] detailed message. Maribel Oden LPN [facility]-22-[facility]24 Instructions* Patient Instructions* Zeny Lam APRN.CNP - 07/27/2023 1:18 PM EDT Start reducing your use of the muscle relaxer, the Zanaflex (tizanidine) as pain improves. Increase the dose of the Cymbalta from the 30 mg daily to 60 mg daily. Try to use your back brace for a short time daily. documented in this encounterKettering Health [facility]ble04-22-2024 History of Present illness Narrative* Zeny Lam [...] He was seen in the ER at [facility] on 07/15/2023. He had an MRI done. [...] Compression Fracture of L1 Lumbar Vertebra (Formerly [facility]) - 07/15/2023 Sciatic Leg Pain - 07/15/2023 Bilateral Carotid Artery Stenosis - 06/15/2023 Acute Gastritis Without Hemorrhage - 04/20/2023 Spinal Stenosis of Lumbar Region - 09/24/2022 Pad (Peripheral Artery Disease) (Formerly [facility]) - 08/16/2021 Kidney Insufficiency - 04/04/2021 Posterior Vitreous Detachment of Right Eye - 06/19/2020 Age-Related Nuclear Cataract of Right Eye - 06/19/2020 Balance Problem - 03/12/2020 History of Left-Sided Carotid Endarterectomy - 06/10/2019 Colonic Polyp - 11/29/2018 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 Zeny Lam APRN-COMPUTER TECHNOLOGY TRAINER documented in this encounterKettering Health [facility]04-22-2024 Telephone encounter Note * Telephone Encounter - [...] Thank you. Mirlande Maria MA. [facility]-22-[facility]24 Miscellaneous Notes* Telephone Encounter - Mirlande Maria [...] Maria MA. documented in this encounterKettering Health [facility]ble04-16-2024 History of Present illness Narrative* Edgar Loaiza DO - 07/21/2023 11:25 AM EDT Images from the original note were not included. [facility] [place] DEPARTMENT OF VASCULAR SURGERY OUTPATIENT VISIT DATE [...] to knees, as of 2008 --- in [place], neurologist thought related to alcohol; Has had [...] as needed. Back Brace (BACK SUPPORT S/M) [facility] Use as instructed. lisinopril (ZESTRIL) 20 mg [...] 11:25 AM documented in this encounterKettering Health [facility]ble04-16-2024 Miscellaneous Notes* Telephone Encounter - Zeny Lam APRN.COMPUTER TECHNOLOGY TRAINER - 07/21/2023 8:18 AM EDT PDMP website [...] Torres LPN. documented in this encounterKettering Health [facility]ble04-13-2024 History of Present illness Narrative* Franc Hills MD - 07/18/2023 9:24 AM EDT This note was created using Secured Mail[employer]. Subjective Patient presents with: ED Follow-up: back [...] (Gastroesophageal Reflux Disease) Recurrent Pulmonary Embolism ([facility]) Assisted (Current) Use of Anticoagulants Colonic Polyp History of Left-Sided Carotid Endarterectomy Balance Problem 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 Kidney Insufficiency Pad (Peripheral Artery Disease) (Formerly [facility]) Spinal Stenosis of Lumbar Region Acute Gastritis Without Hemorrhage Bilateral Carotid Artery Stenosis Compression Fracture of L1 Lumbar Vertebra (Formerly [facility]) Sciatic Leg Pain Current Outpatient Medications [...] as needed. Back Brace (BACK SUPPORT S/M) [facility] Use as instructed. lisinopril (ZESTRIL) 20 mg [...] Hills MD documented in this encounterKettering Health [facility]ble04-12-2024 Miscellaneous Notes* Telephone Encounter - Maribel Oden [...] Oden LPN. documented in this encounterKettering Health [facility]ble04-10-2024 Miscellaneous Notes* Telephone Encounter - Kristina Youssef [...] out of the office. Routing to Provider full fashioned garment knitter Maribel Oden LPN documented in this encounterKettering Health [facility]ble04-10-2024 Miscellaneous Notes* Telephone Encounter - Maribel Oden [...] Oden LPN. documented in this encounterKettering Health [facility]ble04-10-2024 History of Present illness Narrative* Brian Prather, [...] and driving. Patient agreeable to go to [place] ED due to cauda equina symptoms today [...] Prather PT documented in this encounterKettering Health [facility]04-02-2024 Miscellaneous Notes* Telephone Encounter - Antoinette Meadows [...] Meadows RN documented in this encounterKettering Health [facility]ble03-26-2024 Miscellaneous Notes* Telephone Encounter - Maribel Mccoy [...] Oden LPN documented in this encounterKettering Health [facility]ble03-25-2024 History of Present illness Narrative* Zeny Lam [...] Medication Sig Back Brace (BACK SUPPORT S/M) [facility] Use as instructed. 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 * Telephone Encounter - Cyndy Whelan RN - 06/24/2023 10:08 AM EDT Pt called in and reports he has had the back pain for 6 weeks and it is just getting worse. He reports he was looking at the [facility] newsletter for bad back, and he said the only thing he wouldn't be able to do was they therapy due to the pain. He states he would like to go over orthopedic surgery etc.Pt scheduled with provider 06/29/23. documented in this encounterKettering Health [facility]ble03-19-2024 Miscellaneous Notes* Telephone Encounter - Zeny Lma APRN.CNP - 06/23/2023 9:59 AM EDT PDMP [...] date of : Yes, Provider Zeny Lam BOOK AGENT Date 06/23/23 Time 0827. Patient phones for [...] Whelan RN. documented in this encounterKettering Health [facility]ble03-15-2024 Miscellaneous Notes* Telephone Encounter - Lizz Smith [...] Smith MA, documented in this encounterKettering Health [facility]ble03-15-2024 Miscellaneous Notes* Telephone Encounter - Lizz Smith [...] Oden LPN documented in this encounterKettering Health [facility]ble03-11-2024 Miscellaneous Notes* Telephone Encounter - Kari Briones [...] Briones LPN. documented in this encounterKettering Health [facility]ble03-11-2024 Miscellaneous Notes* Telephone Encounter - Ramila Anand [...] water therapy is not an option in [facility], I'm not sure what the closest option would be, I know the [facility] in [place] can do the pool therapy. * Telephone Encounter - Tala Torres LPN - 06/15/2023 9:00 AM EDT Patient calling was asking about doing Physical therapy for his back pain? Or doing whirlpool or aqua therapy? His insurance [employer] is out of network. Told him [facility] does not have water therapy [...] Torres LPN. documented in this encounterKettering Health [facility]ble03-11-2024 History of Present illness Narrative* Sunny Mercedes MD - 06/15/2023 1:00 PM EDT Images from the original note were not included. [facility] SECTION OF REGIONAL CARDIOLOGY Cardiology ([facility]) [address] [id number] OUTPATIENT VISIT DATE 06/14/2023 PRIMARY CARE PHYSICIAN: Zeny Lam [address] [place] [address] HISTORY OF PRESENT ILLNESS: Mr. Brooks is [...] to knees, as of 2008 --- in [place], neurologist thought related to alcohol; Has had [...] 7 days. Back Brace (BACK SUPPORT S/M) [facility] Use as instructed. tiZANidine (ZANAFLEX) 4 mg [...] Mercedes MD documented in this encounterKettering Health [facility]ble03-08-2024 Miscellaneous Notes* Telephone Encounter - Ramila Anand [...] narrative: no documented in this encounterKettering Health [facility]ble03-08-2024 Miscellaneous Notes* Telephone Encounter - Katherine Mckeon [...] an appt. documented in this encounterKettering Health [facility]ble03-06-2024 Miscellaneous Notes* Telephone Encounter - Madelyn Cohen [...] his request. documented in this encounterKettering Health [facility]ble03-04-2024 Miscellaneous Notes* Telephone Encounter - Zeny Lam [...] Oden LPN. documented in this encounterKettering Health [facility]ble03-01-2024 Miscellaneous Notes* Telephone Encounter - Ramila Anand [...] or bruising. documented in this encounterKettering Health [facility]ble03-01-2024 Miscellaneous Notes* Telephone Encounter - Julieth Avila LPN - 06/05/2023 8:47 AM EST Letter taken to medical records to be mailed out this day. Julieth Avila LPN documented in this encounterKettering Health [facility]ble02-29-2024 Miscellaneous Notes* Telephone Encounter - Betzaida Kiser Ma - 06/04/2023 9:20 AM EST Received patient's MyChart information with DME information. Back brace order, demographics, insurance cards, photo ID, and office visit note has been faxed to [facility] in [place] . Fax confirmation received. The intake department at [facility] will be in contact with the patient. If patient should have any questions regarding the back brace, he should contact [facility] directly at . Notified the patient via Matchbook. * Telephone Encounter - Saida Aggarwal - 06/03/2023 3:53 PM EST Patient called back to inform Staff that [facility] has advised that the order should be sent to [facility]. Patient did not have contact info. Informed Patient that I couldn't find any information online for [facility]. Patient stated he will call [facility] back to confirm that this is the correct DME. Patient advised to send us preferred DME information via Matchbook message. Patient is agreeable to do this. Saida Aggarwal * Telephone Encounter - Saida Aggarwal - 06/03/2023 3:05 PM EST Patient notified [facility] staff that insurance will not cover back brace supplied by [facility]. Patient requesting order be sent to [facility] in [place]. Patient did not provide contact information for [...] to Leatha. documented in this encounterKettering Health [facility]ble02-28-2024 Miscellaneous Notes* Telephone Encounter - Zeny Lam APRN.CNP - 06/03/2023 3:07 PM EST Noted. * Telephone Encounter - Corrina Velarde LPN - 06/03/2023 2:59 PM EST Pt states Dr Leal does not recommend surgery, states he is ordering a back brace for him from [facility] in [place]. Corrina Velarde LPN documented in this encounterKettering Health [facility]ble02-28-2024 History of Present illness Narrative* Mckinley Leal MD - 06/03/2023 1:46 PM EST [facility] Date: June 03, 2023 - 1:46 PM Chief Complaint: back pain SUBJECTIVE: Mr. Brooks presents to the [facility] for a follow up appointment [...] to knees, as of 2008 --- in [place], neurologist thought related to alcohol; Has had [...] Panel: No results found for: UQCANN, UQBNZL, NXN5ZUK, UQAMPH, UQMAMP, UQBUPRE, UQNORBUP, UQMTHD, UQEDDP, UQTRAM, [...] Compression fracture of l1 vertebra, initial encounter ([facility]) (primary encounter diagnosis) PLAN: Prior available imaging [...] Mckinley Leal MD cc: Dr. Zeny Lam APRN.COMPUTER TECHNOLOGY TRAINER cc: No referring provider defined for this encounter. Phone: N/A Fax: Results of consultation to be transmitted via electronic medical record for those providers who practice within [facility] or with access to [employer] via MD Connect, or via letter. 1. [...] PCP/referring physician. documented in this encounterKettering Health [facility]ble02-27-2024 Miscellaneous Notes* Telephone Encounter - Betzaida Kiser [...] on Thursday. Email has been sent to [email or web address] to see if they have a physician they recommend to the the patientin sooner. [facility] requires 10 business days for prior authorization and Dr. Leal is out of the office from 06/12/23-06/22/23. Awaiting response from [employer]. * Telephone Encounter - Betzaida Kiser Ma - 06/01/2023 1:[address] Leal does perform kyphoplasty. Will notify Dr. Leal of MRI results. * Telephone Encounter - Tammy Wang MA - 06/01/2023 1:26 PM EST Routed to [facility] pain clinical pool. Phone call to pain management in [place] to see if Dr. Leal performs or [...] Lam APRN.KAYLA documented in this encounterKettering Health [facility]02-23-2024 Miscellaneous Notes* Telephone Encounter - Zeny Lam [...] Munguia RN documented in this encounterKettering Health [facility]ble02-23-2024 History of Present illness Narrative* Sury Giron [...] PATIENT PRESENTS WITH AN IMPLANTABLE OR ATTACHED EGG SEPARATOR: No RADIOLOGY DEPARTMENT: MR; Exam(s) Completed: Spine: Lumbar spine PERIPHERAL IV DATA: Not applicable SIGNED BY: RT Chris(R) May 29, 2023 1:55 PM documented in this encounterKettering Health [facility]ble02-20-2024 Miscellaneous Notes* Telephone Encounter - Tammy Wang [...] Velarde LPN documented in this encounterKettering Health [facility]ble02-20-2024 Miscellaneous Notes* Telephone Encounter - Madelyn Cohen [...] Meds: NONE documented in this encounterKettering Health [facility]ble02-20-2024 History of Present illness Narrative* Edgar Loaiza DO - 05/26/2023 10:26 AM EST Images from the original note were not included. [facility] [place] DEPARTMENT OF VASCULAR SURGERY OUTPATIENT VISIT DATE May 26, 2023 OUTPATIENT VISIT TYPE ESTABLISHED SERVICE DATE: 05/26/2023 SERVICE TIME: 10:26 AM PRIMARY CARE PHYSICIAN: Zeny Lam APRN.COMPUTER TECHNOLOGY TRAINER HISTORY OF PRESENT ILLNESS: Mr. Brooks is [...] to knees, as of 2008 --- in [place], neurologist thought related to alcohol; Has had [...] 10:26 AM documented in this encounterKettering Health [facility]ble02-19-2024 Miscellaneous Notes* Telephone Encounter - Brenda Carlson [...] that? He states he wrote in his [employer] msg that his back was feeling better [...] with msg. He does not want a [employer] msg. * Telephone Encounter - Brenda Carlson - 05/25/2023 7:55 AM EST Please see pt message Brenda Carlson documented in this encounterKettering Health [facility]ble02-17-2024 Miscellaneous Notes* Telephone Encounter - Rosalia Durand LPN - 05/23/2023 3:41 PM EST Patient calling with regards to his upcoming MRI. Patient denies any new or worsening symptoms of which a provider is not aware:Yes pt will call his pcp office Thursday to discuss further. Pt also sent a [employer] message to his pcp today. Rosalia Durand LPN documented in this encounterKettering Health [facility]02-16-2024 Miscellaneous Notes* Telephone Encounter - Zeny Lam [...] Velarde LPN. documented in this encounterKettering Health [facility]ble02-13-2024 Miscellaneous Notes* Telephone Encounter - Tammie Munguia [...] RN - 05/19/2023 12:01 PM EST [facility]- [facility] Main lab reporting an urgent [...] leaf vegetables. documented in this encounterKettering Health [facility]ble02-13-2024 Miscellaneous Notes* Telephone Encounter - Graciela Parker RN - 05/19/2023 9:57 AM EST Patient calling with MRI question. Question answered. Graciela Parker RN documented in this encounterKettering [facility]ble02-12-2024 History of Present illness Narrative* Zeny Lam APRN.COMPUTER TECHNOLOGY TRAINER - 05/18/2023 2:14 PM EST Images from [...] Seen in the ED for this at [facility]. Percocet has not been helping a [...] Endarterectomy - 06/10/2019 Colonic Polyp - 11/29/2018 Assisted (Current) Use of Anticoagulants - 09/15/2018 Recurrent [...] Lam APRN-KAYLA documented in this encounterKettering Health [facility]ble02-09-2024 Miscellaneous Notes* Telephone Encounter - Tammy Wang [...] Oden LPN documented in this encounterKettering Health [facility]ble02-08-2024 Miscellaneous Notes* Telephone Encounter - Tala Torres LPN - 05/14/2023 1:51 PM EST Patient calling from [facility] ER wanted to make sure that Zeny gets all of his records from the ER. He said may have to see project management it specialist. He did not have any brain [...] OTHER SYMPTOMS: Back Pain Protocols used: Head Djrpkp-BLBDM-FQ documented in this encounterKettering Health [facility]ble02-07-2024 Miscellaneous Notes* Telephone Encounter - Celia James [...] Celia James. documented in this encounterKettering Health [facility]ble02-01-2024 Miscellaneous Notes* Telephone Encounter - Kari Briones [...] He RN. documented in this encounterKettering Health [facility]ble12-19-2023 Miscellaneous Notes* Telephone Encounter - Zeny Lam [...] N/A . Protocols used: Blood Pressure - Ziy-HBLKW-LN documented in this encounterKettering Health Preble12-15-2023 Miscellaneous Notes* Telephone Encounter - Gabby Rm LPN - 03/20/2023 3:21 PM EST Would just need a standing order for INR placed for [facility] in order for INR to come to you. * Telephone Encounter - Zeny Lam APRN.KAYLA - 03/20/2023 1:54 PM EST So does new lab order needs placed in epic or sent to [facility]? * Telephone Encounter - Gabby Rm LPN - 03/20/2023 11:23 AM EST PATIENT NOTIFIED OF SAME. States he has the INR drawn here at [facility] lab. * Telephone Encounter - Zeny [...] blocking his toilet- and he has had carbon sequestration plant operator visit 3 x's in the past week to unblock it. Reports he drinks 80 oz water daily, plus 4 cups coffee in the morning. Patient reports he researched pantoprazole and learned that it can cause constipated stools. Patient asking pcp is it ok for him to take miralax while taking pantoprazole? Please phone patient with reply. documented in this encounterKettering Health Preble12-13-2023 Miscellaneous Notes* Telephone Encounter - Tammy Wang [...] Velarde LPN documented in this encounterKettering Health [facility]ble12-05-2023 Miscellaneous Notes* Telephone Encounter - Tammie Munguia [...] Lambert LPN documented in this encounterKettering Health [facility]ble11-29-2023 Miscellaneous Notes* Telephone Encounter - Cyndy Whelan RN - 03/04/2023 3:35 PM EST Pt called and is notified of providers results and instructions. Pt voices understanding. Sent information to Pt through Matchbook. He states he isn't trying to lose weight, he's right where he wants to be. He states he uses an scot called Operax to track his Carbs and sugars. Cyndy [...] age for carbs and sugars? Reports [facility] states the max carbs should be 130 g / day, and sugar should be no more than 36 g / day, and he is way under that. Please advise patient. documented in this encounterKettering Health Preble11-27-2023 Miscellaneous Notes* Telephone Encounter - Judi Shin - 03/02/2023 9:39 AM EST Pt scheduled next lab appt to check A1C on June 02, 2023. Will need lab order attached to that appt. documented in this encounterKettering Health Preble11-24-2023 Miscellaneous Notes* Telephone Encounter - Mohsen Wayne [...] Meadows RN documented in this encounterKettering Health Preble11-21-2023 Telephone encounter Note * Telephone Encounter - Carmen Pham - 02/24/2023 3:41 PM EST 04/20/[address] ROSENBERG PATIENT TO STAY ON COUMADIN [facility]-21-2023 Miscellaneous Notes* Telephone Encounter - Carmen Pham - 02/24/2023 3:41 PM EST 04/20/[address] ROSENBERG PATIENT TO STAY ON COUMADIN documented in this encounterKettering Health [facility]ble11-20-2023 Miscellaneous Notes* Telephone Encounter - Zeny Lam [...] refill on percocet. Please review and advise, Tammei Munguia RN documented in this encounterKettering Health Preble11-15-2023 Miscellaneous Notes* Telephone Encounter - Gabby Rm [...] Current dose of coumadin is: 10 mg Agys-Als-Dwe and 7.5 mg all other days. Last date of dose change: 01/14/2023. Previous INR (date and result): 02/04/2023 was 2.6 Additional Clinical Information or narrative: no missed doses, no bleeding issues, no antibiotics, last greens he ate broccoli on Thursday and last alcohol was Thursday. Can leave patient message with instructions. documented in this encounterKettering Health [facility]ble11-07-2023 Miscellaneous Notes* Telephone Encounter - Zeny Lam [...] on 07-13-23. documented in this encounterKettering Health Preble11-06-2023 Miscellaneous Notes* Telephone Encounter - Brandi Lambert LPN - 02/09/2023 11:34 AM EST Pt called to reiterate that he does not need a new rx for pantoprazole. Brandi Lambert LPN documented in this encounterKettering Health Preble11-06-2023 Miscellaneous Notes* Telephone Encounter - Brandi Lambert LPN - 02/09/2023 11:33 AM EST Pt reports he has a rx for pantoprazole at [facility]. Brandi Lambert LPN documented in this encounterKettering Health Preble11-01-2023 Miscellaneous Notes* Telephone Encounter - Zeny Lam [...] back. Maribel Oden LPN documented in this [facility]10-26-[facility]23 Miscellaneous Notes* Telephone Encounter - Rosalia Umanzor [...] you. Rosalia Umanzor LPN. documented in this [facility]10-26-[facility]23 Miscellaneous Notes* Telephone Encounter - Rosalia Umanzor [...] Umanzor LPN. documented in this encounterKettering Health Preble10-20-2023 History of Present illness Narrative* Zeny Lam APRN.COMPUTER TECHNOLOGY TRAINER - 01/23/2023 1:46 PM EDT SUBJECTIVE Alex [...] Endarterectomy - 06/10/2019 Colonic Polyp - 11/29/2018 Assisted (Current) Use of Anticoagulants - 09/15/2018 Recurrent [...] On coumadin. INR at goal range. 3. penitentiary (current) use of anticoagulants - ICD9: V58.61, ICD10: Z79.01 See #2, INR tracking reviewed. 4. Acute gastritis without hemorrhage, unspecified gastritis type - ICD9: 535.00, ICD10: K29.00 Improving with H2 mrak/PPI use 5. History of left-sided carotid endarterectomy - ICD9: V45.89, ICD10: Z98.890 Follows with vascular. 6. Spinal stenosis of lumbar region, unspecified whether neurogenic claudication present - ICD9: 724.02, ICD10: M48.[address] Leal. Percocet as needed, very rare use, signed [facility] [place] [facility]. 7. Primary hypertension - ICD9: 401.9, ICD10: I10 - Controlled - Continue current medications - Recommend home blood pressure monitoring, to bring results to next visit - Encouraged sodium restriction, DASH or Mediterranean diet - Recommend regular aerobic exercise I spent a total of 30 minutes on the date of the service which included preparing to see the patient, qdbi-vb-fndm patient care, completing clinical documentation, obtaining and/or [...] Lam APRN-KAYLA documented in this encounterKettering Health Preble10-19-2023 Miscellaneous Notes* Telephone Encounter - Haydee Lee [...] PM EDT This should go to his BOOK AGENT Sara Baxter or visual education teacher if she does not do INR dosing. [...] missed doses. documented in this encounterKettering Health Preble10-16-2023 Miscellaneous Notes* Telephone Encounter - Maribel Oden [...] Munguia RN documented in this encounterKettering Health Preble10-16-2023 History of Present illness Narrative* Mckinley Leal MD - 01/19/2023 12:54 PM EDT [facility] Date: January 19, 2023 - 12:55 PM Chief Complaint: back pain SUBJECTIVE: Mr. Brooks presents to the [facility] for a follow up appointment [...] He is currently receiving medications through the [facility]. He is not having difficulty [...] to knees, as of 2008 --- in [place], neurologist thought related to alcohol; Has had [...] Panel: No results found for: UQCANN, UQBNZL, POZ7IDZ, UQAMPH, UQMAMP, UQBUPRE, UQNORBUP, UQMTHD, UQEDDP, UQTRAM, [...] record for those providers who practice within [facility] or with access to [employer] via MD Connect, or via letter. 1. [...] PCP/referring physician. documented in this encounterKettering Health Preble10-11-2023 Miscellaneous Notes* Telephone Encounter - Cyndy Whelan [...] LPN * Telephone Encounter - Zeny Lam APRN.COMPUTER TECHNOLOGY TRAINER - 01/14/2023 12:36 PM EDT Okay to [...] Oden LPN documented in this encounterKettering Health [facility]ble10-06-2023 Miscellaneous Notes* Telephone Encounter - Kristina Youssef [...] 2 days. documented in this encounterKettering Health Preble10-04-2023 Miscellaneous Notes* Telephone Encounter - Tala Torres [...] can take? documented in this encounterKettering Health [facility]ble09-26-2023 Telephone encounter Note * Telephone Encounter - Zeny Lam APRN.CNP - 12/30/2022 1:13 PM EDT I'm okay with seeing him, okay to put him on my schedule [facility]09-26-2023 Miscellaneous Notes* Telephone Encounter - Zeny Lam APRN.CNP - 12/30/2022 1:13 PM EDT I'm okay with seeing him, okay to put him on my schedule * Telephone Encounter - Judi Shin - 12/30/2022 8:49 AM EDT Pt called to scheduled with [facility]. States he saw her yesterday and asked if he could have her as a primary care. States she said yes. Please advise if this is okay. Pt is concerned for privacy and does not what Dr. Hills to know of his decision. documented in this encounterKettering Health Preble09-26-2023 Telephone encounter Note * Telephone Encounter - Judi Shin - 12/30/2022 8:49 AM EDT Pt called to scheduled with Zeny in April to [facility]. States he saw her yesterday and asked if he could have her as a primary care. States she said yes. Please advise if this is okay. Pt is concerned for privacy and does not what Dr. Hills to know of his decision. [facility] Work Phone: [phone]) 326-778609-25-2023 Miscellaneous Notes* Telephone Encounter - Tammie Rg RN - 12/29/2022 5:08 PM EDT Patient calling with request for health information: patient requesting health information about Moderna Vaccine, reviewed information from CDC , and verbalized understanding of information provided.Patient denies any new or worsening symptoms of which a provider is not aware: Yes. Source: https://www.cdc.gov/vaccines/covid-19/rjqe-nj-cmoedqn/moderna/reactogenicity.htm l If you have any questions, you can call Nurse full fashioned garment knitter back at anytime OR speak to your provider's office when they open in the morning. documented in this encounterKettering Health Preble09-25-2023 History of Present illness Narrative* Zeny Lam [...] The weekend prior to this he ate Bhutanese food with a lot of hot sauce. 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 Zeny Lam APRN-COMPUTER TECHNOLOGY TRAINER documented in this encounterKettering Health Preble09-21-2023 Miscellaneous Notes* Telephone Encounter - Alvin He RN - 12/25/2022 9:57 AM EDT Patient reports he vomited 3 days ago, one time. Reports he had diarrhea 2-3 days ago, and now onlyhaving a lot of gas. Reports he ate Bhutanese on the 15th and 17th, but doesn't think that has anything to do with it. Reports he is now eating a bland diet and getting plenty of clear liquids, and thinks he's on the mend. States he doesn't need an appt right now, but if condition worsens he plans tocall back to schedule appt with Dede Masterson. documented in this encounterKettering Health Preble09-13-2023 Miscellaneous Notes* Telephone Encounter - Mani Edwards [...] Meadows RN documented in this encounterKettering Health Preble09-13-2023 Miscellaneous Notes* Telephone Encounter - Antoinette Meadows RN - 12/17/2022 9:55 AM EDT See TE 12/17/2022. Antoinette Meadows RN documented in this encounterKettering Health Preble09-06-2023 Nurse Note* Betzaida Kiser Ma - 12/10/2022 [...] Kiser Ma) documented in this encounterKettering Health Preble09-06-2023 History of Present illness Narrative* Mckinley Leal MD - 12/10/2022 9:46 AM EDT [facility] Date: December 10, 2022 - 9:47 AM Chief Complaint: Back pain SUBJECTIVE: Mr. Brooks presents to the [facility] for a follow up appointment [...] to knees, as of 2008 --- in [place], neurologist thought related to alcohol; Has had [...] Panel: No results found for: UQCANN, UQBNZL, VTE5WPZ, UQAMPH, UQMAMP, UQBUPRE, UQNORBUP, UQMTHD, UQEDDP, UQTRAM, [...] PROMIS Profile Date completed: 12/10/2022 Scanned into [facility]: Yes See nursing note. Intervention: This is [...] Dr. Franc Hills MD cc: Franc Hills [address] [facility] [id number] Results of consultation to be transmitted via electronic medical record for those providers who practice within [facility] or with access to [employer] via MD Connect, or via letter. 1. [...] PCP/referring physician. documented in this encounterKettering Health Preble09-05-2023 Miscellaneous Notes* Telephone Encounter - Kari Briones LPN - 12/09/2022 3:45 PM EDT [facility], Patient does have a refill of Lorazepam (Ativan), can fill tomorrow. Kari Briones LPN documented in this encounterKettering Health Preble09-05-2023 History of Present illness Narrative* Kvng Magaña [...] relevant components. documented in this encounterKettering Health Preble09-02-2023 Miscellaneous Notes* Telephone Encounter - Kristina Youssef [...] Munguia RN documented in this encounterKettering Health Preble2023 Miscellaneous Notes* Telephone Encounter - Kari Briones [...] would be. documented in this encounterKettering Health Preble08-30-2023 Miscellaneous Notes* Telephone Encounter - Judi Jacobson - 12/03/2022 10:16 AM EDT Request to hold anticoagulation form sent to scanning. Date signed 11/26/22 documented in this encounterKettering Health Preble08-29-2023 Miscellaneous Notes* Telephone Encounter - Antoinette Meadows [...] Meadows RN documented in this encounterKettering Health Preble08-28-2023 Miscellaneous Notes* Telephone Encounter - Sara Baxter APRN.CNP - 12/01/2022 3:50 PM EDT Noted Sara Baxter APRN.CNP * Telephone Encounter - Maribel Oden LPN - 12/01/2022 3:10 PM EDT Pt called to let you know he got a flu shot today 12-01-22 [facility] in [place]. Pt reports he will be getting an RSV injection tomorrow. He will be getting his INR done on 12-03-22. [facility] to send you confirmation on vaccines given with information on the vaccines. Maribel Oden LPN documented in this encounterKettering Health Preble08-21-2023 History of Present illness Narrative* Franc Hills MD - 11/24/2022 5:45 PM EDT This note was created using Secured Mailriter. Subjective Patient presents with: F/U 3 Month Alex Brooks is a 77 year old male was here for chronic opioid management. He saw neurosurgeonand has decided to seek another nerve ablation with Dr. Lael instead of spine surgery. This is scheduled [...] (Gastroesophageal Reflux Disease) Recurrent Pulmonary Embolism (Hcc) Assisted (Current) Use of Anticoagulants Colonic Polyp History [...] Hills MD documented in this encounterKettering Health Preble08-16-2023 Miscellaneous Notes* Telephone Encounter - Kamila Eng [...] ablations. OK to send this information via Matchbook. Patient instructed to hold the following medication(s) prior to the procedure: - Coumadin for 5 days prior - ASA 81 for 2 days prior A request to hold Coumadin and ASA81 will be sent to the patient's PCP. Pre-procedure instructions reviewed over telephone and a list of instructions were sent via Matchbook. Patient verbalized understanding with no additional questions [...] is the patient's name. My phone number [phone]. I forgot all the other stuff you [...] if someone would please call me at [phone] and once again it's Alex Brooks and [...] is Alex Brooks. My phone number is [phone]. I live in [place] by the way I made an appointment [...] me, does he have enough information. Should [place] ahead and schedule it. So I have [...] and L5-S1 documented in this encounterKettering Health Preble08-15-2023 Miscellaneous Notes* Telephone Encounter - Betzaida Kiser Ma - 11/18/2022 10:53 AM EDT History of injection/rfa: 05/10/2020 - Bilateral L4-5 and L5-S1 Lumbar Facet Medial Branch Nerve Radiofrequency Ablation under fluoroscopy - CPT 81860 and 08295 03/20/2014 - Left L4-5 and L5-S1 Lumbar Facet Medial Branch Nerve Radiofrequency Ablation under fluoroscopy - CPT 71718 and 83907 03/13/2014 - Right L4-5 and L5-S1 Lumbar Facet Medial Branch Nerve Radiofrequency Ablation under fluoroscopy - CPT 21516 and 87797 09/02/2011 - Left L4-5 and L5-S1 Lumbar Facet Medial Branch Nerve Radiofrequency Ablation under fluoroscopy - CPT 58466 and 26189 08/07/2011 - Right L4-5 and L5-S1 Lumbar Facet Medial Branch Nerve Radiofrequency Ablation under fluoroscopy - CPT 95628 and 66238 05/19/2011 - Bilateral L4-5 and L5-S1 Lumbar Facet Medial Branch Block under fluoroscopy CPT - 23942 and 02952 05/05/2011 - Bilateral L4-5 and L5-S1 Lumbar Facet Medial Branch Block under fluoroscopy CPT - 42369 and 37233 documented in this encounterKettering Health [facility]ble08-09-2023 Miscellaneous Notes* Telephone Encounter - Cyndy Whelan [...] Velarde LPN documented in this encounterKettering Health Preble08-09-2023 Miscellaneous Notes* Telephone Encounter - Carlos Rodriguez [...] us updated. documented in this encounterKettering Health Preble08-08-2023 Miscellaneous Notes* Telephone Encounter - Sara Baxter [...] Meadows RN documented in this encounterKettering Health [facility]ble08-07-2023 History of Present illness Narrative* Salas Johns [...] (Gastroesophageal Reflux Disease) Recurrent Pulmonary Embolism (Hcc) General Purchasing Agent (Current) Use of Anticoagulants Colonic Polyp History [...] to knees, as of 2008 --- in [place], neurologist thought related to alcohol; Has had [...] PM PAGER: documented in this encounterKettering Health Preble08-04-2023 Miscellaneous Notes* Telephone Encounter - Graciela Parker [...] Parker RN documented in this encounterKettering Health [facility]ble08-03-2023 Miscellaneous Notes* Telephone Encounter - Tala Torres [...] Briones LPN documented in this encounterKettering Health Preble08-03-2023 Miscellaneous Notes* Telephone Encounter - Kristina Youssef [...] Oden LPN documented in this encounterKettering Health [facility]ble07-26-2023 Miscellaneous Notes* Telephone Encounter - Graciela Parker [...] 5 days. documented in this encounterKettering Health Preble07-13-2023 Miscellaneous Notes* Telephone Encounter - Jennifer Mejia MA - 10/16/2022 6:01 PM EDT Patient active MyChart. Patient notified via Matchbook message. Jennifer Mejia MA * Telephone Encounter [...] if there is a problem. Maribel Oden [facility] * Telephone Encounter - Tala Torres [...] time he isasking for this. Patient uses [facility] for his pharmacy. Can send patient my chart message with response. Please advise documented in this encounterKettering Health Preble06-29-2023 History of Present illness Narrative* Anette Omalley [...] and facet degenerative change. Moderate spinal stenosis. Txwx-sj-cafzoukz foraminal narrowing. L4-L5: Loss of disc height, disc bulging, and prominent facet degenerative change. Severe spinal stenosis, worsened when compared with the previous exam. (5:19; 2:11). Khbp-nw-abnqcykp right and severe left foraminal narrowing. L5-S1: [...] Health Provider or Pain Management Provider at [facility]? No If answer is YES please schedule directly with surgeon, triage does not need to be completed. Is this a self-referral No If not, who is the Referring Provider Franc Hills MD, order in [facility] Is this a 2nd opinion? No Were you offered surgery? No MRI/CT/myelogram within 12 months? Yes If NO, please refer to medical spine or PCP to complete above imaging, triage does not need to be completed If YES, please ask for the name/address of the facility where the MRI/CT/myelogram was completed: [facility] MRI[facility]CT[facility]myelogram viewable in [facility]: Yes If not, please provide [phone] to fax in imaging reports for review. [...] where the surgery was completed: Additional Comments [phone] documented in this encounterKettering Health [facility]ble06-27-2023 Miscellaneous Notes* Telephone Encounter - Kari Briones [...] 2.4 09/23/2022 documented in this encounterKettering Health Preble06-22-2023 Miscellaneous Notes* Telephone Encounter - Jennifer Mejia [...] Hills for Consult for Spine Surgery. A electron beam welding machine operator has made two appointments for patient and he is asking if these two appointments are appropriate for the consult order: Quarry Supervisor Dimension Stone made appt for pt to see Dr. Mckinley Leal with Pain Mgmt in [place]. This appt is for tomorrowand pt asking if this appt is appropriate for the consult order placed today? Quarry Supervisor Dimension Stone made appt for pt to also see Sunny Orta PA-C of Spine Med in [place] for next month. Pt asking if this [...] Ann RN documented in this encounterKettering Health [facility]ble06-15-2023 Miscellaneous Notes* Telephone Encounter - Franc Hills [...] was left. documented in this encounterKettering Health [facility]ble06-08-2023 Miscellaneous Notes* Telephone Encounter - Cyndy Whelan [...] Meadows RN documented in this encounterKettering Health [facility]ble06-07-2023 Miscellaneous Notes* Telephone Encounter - Kari Briones [...] Briones LPN documented in this encounterKettering Health [facility]ble05-31-2023 Miscellaneous Notes* Telephone Encounter - Gabby Rm [...] Meadows RN documented in this encounterKettering Health [facility]ble05-08-2023 History of Present illness Narrative* Franc Hills MD - 08/11/2022 3:35 PM EDT This note was created using Secured Mailriter. 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 Either the patient or their legal international account representative has been informed of the risks [...] paroxysmal nocturnal dyspnea, pedal edema. Home blood sprcljorr632/70s. Recently cut down his alcohol intake as [...] to knees, as of 2008 --- in [place], neurologist thought related to alcohol; Has had [...] PE perspective, he has an indication for senior living anticoagulation. Regarding his history of PAD, Carotid Disease, presumed coronary disease - his BP is well controlled, LDL < 70. While he is on aspirin, can consider discontinuing it in the future given stable disease and his indication for senior living anticoagulation. Patient will follow up with me [...] and Zabrina Hylton Department of Cardiovascular Medicine 41 [address], [place] [address] Appointments: (Cardiology); (Vascular Medicine) This note was dictated using a voice recognition software. Please excuse any inadvertent typographical/grammatical/syntax errors that may have escaped the final proofread. Please don't hesitate to contact my office for any clarification. documented in this encounterKettering Health [facility]05-03-2023 Miscellaneous Notes* Telephone Encounter - Kari Briones [...] missed doses. documented in this encounterKettering Health [facility]ble04-26-2023 Miscellaneous Notes* Telephone Encounter - Kari Briones LPN - 07/30/2022 1:07 PM EDT TC Patient, given below recommendation, he asked for the dosage instructions be sent to [employer]. Done. Kari Briones LPN * Telephone Encounter [...] pt does not need to call back. Marbiel Oden LPN documented in this encounterKettering Health [facility]ble04-25-2023 Miscellaneous Notes* Telephone Encounter - Tala Torres LPN - 07/29/2022 3:25 PM EDT Phoned patient and went over notes from Sara Baxter BOOK AGENT with understanding. Patient plans to do Dr [...] Thank you. documented in this encounterKettering Health [facility]ble04-12-2023 Miscellaneous Notes* Telephone Encounter - Cyndy Whelan [...] say he is eating a lot of kenyan foods and likes lots of hot sauce on his food. documented in this encounterKettering Health [facility]ble04-05-2023 Miscellaneous Notes* Telephone Encounter - Kristina Youssef [...] narrative: no documented in this encounterKettering Health Preble03-29-2023 Miscellaneous Notes* Telephone Encounter - Cyndy Whelan [...] diet changes, except he hasbeen eating more kenyan, denies alcohol consumption, has not been on any antibiotics, no unusual bleeding or bruising. documented in this encounterKettering Health [facility]ble03-15-2023 Miscellaneous Notes* Telephone Encounter - Kari Briones [...] Meadows RN documented in this encounterKettering Health [facility]ble03-14-2023 Miscellaneous Notes* Telephone Encounter - Tammie Munguia [...] mmol/L 4.3 documented in this encounterKettering Health [facility]ble03-06-2023 Miscellaneous Notes* Telephone Encounter - Cyndy Whelan [...] Munguia RN documented in this encounterKettering Health [facility]ble03-01-2023 Miscellaneous Notes* Telephone Encounter - Julieth Jeffry [facility] - 06/04/2022 11:53 AM EST Patient called [...] like to get the Echo done in [facility]. Call back number: [phone] Thank you documented in this encounterKettering Health [facility]ble02-28-2023 Miscellaneous Notes* Telephone Encounter - Celia Sanders [...] Thank you. documented in this encounterKettering Health [facility]ble02-27-2023 History of Present illness Narrative* Franc Hills MD - 06/02/2022 5:02 PM EST Alex Brooks is a 76 year old male here for a Medicare Subsequent Annual Wellness Visit Health Risk Assessment In general, health is: Good Concerns with balance: More than half the days Concerns with teeth or dentures: Not at all Concerns with sexual function: Not at all Mcgregor anxious, stressed, angry, irritable, lonely, isolated, or [...] PM EST This note was created using [employer]. Subjective Patient presents with: Medicare Wellness Exam Recheck Alex Brooks is a 76 year old male. His hypertension was labile. He followed with cardiology at [facility], but was considering transferring to [facility] cardiology here He is on [...] (Gastroesophageal Reflux Disease) Recurrent Pulmonary Embolism (Hcc) Assisted (Current) Use of Anticoagulants Colonic Polyp History [...] Hills MD documented in this encounterKettering Health [facility]ble02-27-2023 Miscellaneous Notes* Telephone Encounter - Joce Schmid Ma - 06/02/2022 4:06 PM EST MARITZA: 02/03/2022 Last refill: 03/18/2022 QTY: 42 Refills: 0 documented in this encounterKettering Health Preble02-27-2023 Miscellaneous Notes* Telephone Encounter - Joce Schmid [...] Schmid Ma documented in this encounterKettering Health Preble02-20-2023 Miscellaneous Notes* Telephone Encounter - Julieth Teran [facility] - 05/26/2022 12:53 PM EST Patient is calling because he would like to request having an ECHO when he goes in on 06/04, if possible, for his labs at [facility] (if same date doesn't work, check with patient for a different date0. He said it's been a year since his last one and he would like to be checked again. I told him we would check with Dr. Dos Santos and Raiza would call him back. Julieth Teran documented in this encounterKettering Health Preble02-16-2023 Miscellaneous Notes* Telephone Encounter - Maribel Oden [...] per pt. documented in this encounterKettering Health Preble02-15-2023 Miscellaneous Notes* Telephone Encounter - Tammie Munguia [...] Munguia RN documented in this encounterKettering Health [facility]ble02-02-2023 Miscellaneous Notes* Telephone Encounter - Tala Torres [...] Oden LPN documented in this encounterKettering Health [facility]ble01-19-2023 Miscellaneous Notes* Telephone Encounter - Kari Briones [...] with reply. documented in this encounterKettering Health Preble01-19-2023 Miscellaneous Notes* Telephone Encounter - Tala Torres [...] 4-5 days. documented in this encounterKettering Health [facility]ble01-11-2023 Miscellaneous Notes* Telephone Encounter - Joce Schmid [...] Oden LPN documented in this encounterKettering Health [facility]ble01-11-2023 Miscellaneous Notes* Telephone Encounter - Franc Hills [...] Thank you. documented in this encounterKettering Health Preble01-06-2023 History of Present illness Narrative* Kristina Youssef LPN - 04/11/2022 2:39 PM EST PCP ADDRESSED IN PHONE ENCOUNTER POT CALLED TOO. Hold coumadin today only. Resume coumadin 10 mg daily after holding for one day. INR in 3 days. * Julieth Castle RN - 04/11/2022 12:15 PM EST patient had inr completed at [facility] patients inr is 4.1 (patients inr [...] on 04/18/22 documented in this encounterKettering Health Preble01-06-2023 Miscellaneous Notes* Telephone Encounter - Kristina Youssef [...] days, no diet changes (ate a large pie chef salad last night), no recent AB's, no unusual bleeding or bruising. Does take a daily lowdose asa. documented in this encounterKettering Health Preble01-03-2023 Miscellaneous Notes* Telephone Encounter - Graciela Parker RN - 04/08/2022 9:27 AM EST Patient calling to ensure his MC message to PCP is understood. He states he does not need his potassium script refilled at this time. He is only requesting his potasssium CL ER be changed to [facility] for future orders due to low cost. Thank you. documented in this encounterKettering Health Preble12-30-2022 Miscellaneous Notes* Telephone Encounter - Alvin He [...] Labs: 11/13/2021 documented in this encounterKettering Health Preble12-28-2022 Miscellaneous Notes* Telephone Encounter - Kari Briones [...] Munguia RN documented in this encounterKettering Health Preble12-15-2022 Miscellaneous Notes* Telephone Encounter - Tammie Munguia RN - 03/20/2022 2:00 PM EST Patient called and wanted to let provider know that the reason why he had cancelled INR on Thursday was because he is having it done at [facility] instead. Tammie Munguia RN documented in this encounterKettering Health Preble12-14-2022 Miscellaneous Notes* Telephone Encounter - Sara Baxter APRN.CNP - 03/19/2022 3:47 PM EST Addressed in phone encounter Sara Baxter APRN.KAYLA documented in this encounterKettering Health Preble12-13-2022 Miscellaneous Notes* Telephone Encounter - Maribel Oden [...] Munguia RN * Telephone Encounter - Kari Birones LPN - 03/17/2022 4:00 PM EST Message [...] he is going in for colonoscopy at [facility] with Dr. Rosenberg on Thursday03/24/2022. Patient [...] applicable Please advise. Thank you. Tala Quattrocchi BRIDGE/STRUCTURE INSPECTION TEAM LEADER Patient requesting PCP to advise. documented in this encounterKettering Health Preble12-13-2022 Miscellaneous Notes* Telephone Encounter - Franc Hills [...] reports about 2.5 yrs ago Sara Baxter, COMPUTER TECHNOLOGY TRAINER reduced percocet dose from 10 mg to [...] Lambert LPN documented in this encounterKettering Health [facility]ble12-08-2022 Miscellaneous Notes* Telephone Encounter - Franc Hills [...] Velarde LPN documented in this encounterKettering Health Preble12-01-2022 History of Present illness Narrative* Franc Hills MD - 03/06/2022 6:30 PM EST Ok. * Julieth Castle RN - 03/06/2022 12:24 PM EST patient had inr completed at [facility] patients inr is 2.8 (patients inr [...] up INR. documented in this encounterKettering Health Preble11-15-2022 History of Present illness Narrative* Julieth Castle [...] up INR. documented in this encounterKettering Health Preble11-15-2022 Miscellaneous Notes* Telephone Encounter - Julieth Castle RN - 02/18/2022 1:06 PM EST Patient is a new patient to the [facility] and we are needing new standing orders for testing. Orders have been pended for review and file if able. CC only needs called if orders cannot be filed. Thanks documented in this encounterKettering Health Preble11-08-2022 Miscellaneous Notes* Telephone Encounter - Kristina Youssef LPN - 02/11/2022 9:02 AM EST Pt called in and spoke to a triage nurse. He is requesting to change back to Dr. Hills as pcp. Reviewed with Dr. Hills. He is fine with this. Pcp field change back to Dr. Hills. documented in this encounterKettering Health Preble10-31-2022 Miscellaneous Notes* Telephone Encounter - Maribel Oden [...] Ann RN documented in this encounterKettering Health Preble10-31-2022 History of Present illness Narrative* Bonnie Sharif APRN.COMPUTER TECHNICAL SPECIALIST - 02/03/2022 12:53 PM EDT SUBJECTIVE: DEPRESSION ASSESSMENT Never done HPI Alex Brooks is a 76 year old male. 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 Mj Dos Santos MD, cardiology 08/2021 Dr Rosenberg colonoscopy 03/24/2022 [facility]. 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 Asking for a call and [employer] Corporationhart message. * Telephone Encounter - Gabby Rm LPN - 01/31/2022 1:39 PM EDT Last INR: 2.8 Current dose of coumadin is: 01/26/22 patient took 12.5 mg and then 10 mg all other days. Last date of dose change: 01/24/22. Previous INR (date and result): 01/24/22 2.4 Additional Clinical Information or narrative: no documented in this encounterKettering Health Preble10-22-2022 Miscellaneous Notes* Telephone Encounter - Rosalia Guerrero Ma - 01/25/2022 8:40 AM EDT Patient notified via Cartasitehart encounter where he inquired about INR * [...] Parker RN documented in this encounterKettering Health Preble10-19-2022 Miscellaneous Notes* Telephone Encounter - Franc Hills [...] INR results. documented in this encounterKettering Health Preble10-13-2022 Miscellaneous Notes* Telephone Encounter - Maribel Oden [...] Please advise documented in this encounterKettering Health Preble10-12-2022 Miscellaneous Notes* Telephone Encounter - Tammie Munguia [...] on . documented in this encounterKettering Health Preble10-05-2022 Miscellaneous Notes* Telephone Encounter - Cyndy Whelan [...] Velarde LPN documented in this encounterKettering Health Preble10-04-2022 Miscellaneous Notes* Telephone Encounter - Kari Briones LPN - 01/07/2022 11:10 AM EDT Patient notified of below dosage recommendation, verbalized understanding. Per Patient's request, sent instructions through [employer]. Anticoag Tracker updated. Kari Briones LPN * [...] and advise documented in this encounterKettering Health Preble09-30-2022 Miscellaneous Notes* Telephone Encounter - Graciela Parker [...] Thank you. documented in this encounterKettering Health Preble09-29-2022 Miscellaneous Notes* Telephone Encounter - Cyndy Whelan [...] his bad tooth. Uses [facility] in [place]. Please advise patient. Thank you. documented in this encounterKettering Health Preble09-28-2022 Miscellaneous Notes* Telephone Encounter - Sara Baxter [...] that he just saw Dr. Justice from [facility]. Patient reports that Dr. Justice's office just faxed over forms requesting provider's instructions on how long patient needs to be off of coumadin before patient has tooth extraction done. Tooth extraction will not be scheduled until instructions are received. Please review and advise, Tammie Munguia RN documented in this encounterKettering Health Preble09-22-2022 Miscellaneous Notes* Telephone Encounter - Ramila Zapata [...] only, then back to 10 mg everyday ondoyu13.5 mg on Thursday. Last date of dose change: 12/11/21. Previous INR (date and result): 3.9 Additional Clinical Information or narrative: yes: Denies any missed doses, no unusual bleeding andbruising, no recent antibiotic use, no diet changes and has not drank any [facility] documented in this encounterKettering Health Preble09-15-2022 History of Present illness Narrative* Iglesia Ansari MD - 12/19/2021 4:48 PM EDT Carotid duplex unchanged from prior. Repeat in 2 years. Iglesia Ansari MD documented in this encounterKettering Health Preble09-14-2022 Miscellaneous Notes* Telephone Encounter - Rosalia Coffman Sec - 12/18/2021 9:12 AM EDT Mr. Brooks had follow-up imagine done of his carotids (US) done yesterday and he states he received the results in [facility] and the results appear to be the same as they were in 2020. Mr. Brooks would like to know if he would still need to keep the virtual visit on 12/[address] Ansari? Rosalia Coffman Mending Carrier documented in this encounterKettering Health Preble09-14-2022 Miscellaneous Notes* Telephone Encounter - Mani Edwards [...] Briones LPN documented in this encounterKettering Health Preble09-13-2022 Miscellaneous Notes* Telephone Encounter - Parvin Ramirez [...] has changed since the appt. below. # [phone] Patient is not available today from 2-4pm [...] that he did order his glasses from [facility]. Alex Brooks [phone] FV-06/24/21 LV-12/10/21 Assessment & Plan Kvng Magaña [...] with AG. documented in this encounterKettering Health Preble09-13-2022 Miscellaneous Notes* Telephone Encounter - Kari Briones LPN - 12/17/2021 3:26 PM EDT Called Pharmacy, Patient has refill of Potassium, it is to early to fill. Patient can fill 01/02/2022. Kari Briones LPN documented in this encounterKettering Health Preble09-08-2022 Miscellaneous Notes* Telephone Encounter - Krsitina Youssef LPN - 12/12/2021 10:43 AM EDT [...] pt findings. documented in this encounterKettering Health Preble09-07-2022 Miscellaneous Notes* Telephone Encounter - Joce Schmid [...] Thank you. documented in this encounterKettering Health Preble09-06-2022 History of Present illness Narrative* Kvng Magaña [...] by others. I have seen and examined Alxe Brooks. I have discussed the caseand the management of this patient's care with the Resident/Fellow, if applicable. I also have reviewed and agree with the assessment and plan as stated above and agree with all of its relevant components. documented in this encounterKettering Health Preble08-25-2022 Miscellaneous Notes* Telephone Encounter - Kristina Youssef [...] Meadows RN documented in this encounterKettering Health Preble08-24-2022 Miscellaneous Notes* Telephone Encounter - Kari Briones [...] Briones LPN documented in this encounterKettering Health Preble08-22-2022 Miscellaneous Notes* Telephone Encounter - Kari Briones [...] Briones LPN documented in this encounterKettering Health Preble08-11-2022 Miscellaneous Notes* Telephone Encounter - Kristina Youssef LPN - 11/14/2021 3:11 PM EDT Patient notified of results and provider's instructions. Patient verbalizes understanding. Kristina Youssef LPN * Telephone Encounter - Franc Hills MD - 11/14/2021 3:07 PM EDT Continue Coumadin dose. INR in 2 weeks. * Telephone Encounter - Kritsina Youssef LPN - 11/14/2021 2:42 PM EDT [...] Thank you. documented in this encounterKettering Health Preble08-10-2022 History of Present illness Narrative* Franc Hills MD - 11/13/2021 2:53 PM EDT This note was created using [employer]. 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 Bowel Preparation Instructions for: Golytely, Nulytely, Trilyte or Colyte (polyethylene glycol 3350and electrolytes) IF YOU DO NOT FOLLOW THESE DIRECTIONS, YOUR COLONOSCOPY WILL BE CANCELLED. Avllejo Instructions: Your bowel must be empty so [...] If you do not have a responsible diesel truck driver (family member or friend) with [...] If you do not have a responsible diesel truck driver (family member or friend) withyou to take you home, your exam cannot be done with sedation and will be cancelled. Please bring a list of all of your current medications, including any Robn-xlx-Nneaips medications with you. Medications If you take [...] 2 03/2019 documented in this encounterKettering Health Preble08-09-2022 History of Present illness Narrative* Micah Rosenberg [...] to knees, as of 2008 --- in [place], neurologist thought related to alcohol; Has had [...] entered by the nurse and reviewed by md Nursing Notes: Katia Colonz 11/12/2021 1:18 PM [...] endoscopy I plan for monitored anesthetic care.at [facility] Diagnoses: (Z86.010) Personal history of colonic polyps (primary encounter diagnosis) My findings have been communicated to Dr. Franc Hills MD via shared medical record. This note will be forwarded to Dr. Franc Hills MD. Return to Clinic: The patient is instructed to follow-up with me 1 week post operatively. Micah Rosenberg III, MD documented in this encounterKettering Health Preble08-09-2022 Nurse Note* Katia Colonz - 11/12/2021 1:11 [...] Katia Clayton documented in this encounterKettering Health Preble07-30-2022 Miscellaneous Notes* Telephone Encounter - Celia Sanders [...] Please advise. documented in this encounterKettering Health Preble07-22-2022 Miscellaneous Notes* Telephone Encounter - Rosalia Hernandez - 10/25/2021 3:31 PM EDT Mr. Ordonez has a follow-up appointment scheduled with Dr. Ansari in December. 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 He would like to know if he can have the ultrasound done at [place] and follow- up virtually? Rosalia Coffman Mending Carrier documented in this encounterKettering Health Preble07-13-2022 Miscellaneous Notes* Telephone Encounter - Franc Hills [...] Please review. documented in this encounterKettering Health Preble07-13-2022 History of Present illness Narrative* Franc Hills MD - 10/16/2021 4:07 PM EDT This note was created using [place]. 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 Advised ER follow up appointment. Scheduled 10/16 with PCP. Molly Ann RN documented in this encounterKettering Health Preble06-30-2022 Miscellaneous Notes* Telephone Encounter - Kristina Youssef [...] wanted ER visit to be obtained from [facility] for provider to look at. Sent [...] on antibiotics. Pt report he was in [facility] ER 09/28 and had bruises on his ribs that they x-rayed,from a fall. documented in this encounterKettering Health Preble06-29-2022 Miscellaneous Notes* Telephone Encounter - Maribel Oden [...] Oden LPN documented in this encounterKettering Health Preble06-20-2022 Miscellaneous Notes* Telephone Encounter - Kristina Youssef LPN - 09/23/2021 3:32 PM EDT Images from the original note were not included. Prior authorization approved Payer: [employer] [phone] CaseId:[id number];Status:Approved;Review Type:Prior Auth;Coverage Start Date:09/09/2021;Coverage End Date:09/23/2022; Approval Details Authorized from September 09, 2021 to September 23, 2022 * Telephone Encounter - Kristina Youssef LPN - 09/23/2021 9:48 AM EDT Electronic PA completed for lorazepam. documented in this encounterKettering Health Preble06-20-2022 Instructions* Patient Instructions* Teri Gruber APRN.CNP - 09/23/2021 9:40 AM EDT Call your insurance and inquire if you will need a referral for a maintenance shop technician. Would recommend seeing dentist as well. documented in this encounterKettering Health Preble06-20-2022 History of Present illness Narrative* Teri Gruber [...] to knees, as of 2008 --- in [place], neurologist thought related to alcohol; Has had [...] ICD10: K06.8 (primary diagnosis) Recommend dentist and maintenance shop technician. Severe disease and dental caries. 2. Periodontal disease - ICD9: 523.9, ICD10: K05.6 Recommend dentist and maintenance shop technician. Severe disease and dental caries. 3. Chronic low back pain without sciatica, unspecified back pain laterality - ICD9: 724.2, 338.29, ICD10: M54.50, G89.29 Recommend dentist and maintenance shop technician. Severe disease and dental caries. Refill given. - OXYCODONE-ACETAMINOPHEN 5 MG-325 MG TABLET Teri Gruber APRN.COMPUTER TECHNOLOGY TRAINER PDMP website checked and validated. All prescriptions have been APPROPRIATELY filled. No suspiciousactivity was identified. 09/23/2021 by Teri Gruber CNP. documented in this encounterKettering Health Preble06-17-2022 Miscellaneous Notes* Telephone Encounter - Tala Torres [...] out tomorrow. documented in this encounterKettering Health Preble06-15-2022 Miscellaneous Notes* Telephone Encounter - Joce Schmid [...] are negative. documented in this encounterKettering Health Preble06-01-2022 Miscellaneous Notes* Telephone Encounter - Joce Schmid [...] in diet. documented in this encounterKettering Health Preble06-01-2022 Miscellaneous Notes* Telephone Encounter - Kari Briones [...] Velarde LPN documented in this encounterKettering Health Preble05-20-2022 Miscellaneous Notes* Telephone Encounter - Franc Hills MD - 08/23/2021 1:09 PM EDT Okay. * Telephone Encounter - Antoinette Medaows RN - 08/23/2021 10:36 AM EDT Patient [...] Meadows RN documented in this encounterKettering Health Preble05-19-2022 Miscellaneous Notes* Telephone Encounter - Molly Ann [...] 7.5 mg documented in this encounterKettering Health Preble05-19-2022 Instructions* Patient Instructions* Franc Hills MD - 08/22/2021 6:34 PM EDT COUMADIN 10 MG MONDAYS THRU FRIDAYS. 7.5 MG SATURDAYS AND SUNDAYS. INR IN 2 WEEKS. documented in this encounterKettering Health [facility] History of Present illness Narrative* Franc Hills MD - 08/22/2021 5:36 PM EDT This note was created using [place]. Subjective Alex Brooks is a 75 year old male. He saw the BOOK AGENT 1.5 weeks ago, and was treated for [...] lower this afternoon. He just saw his early childhood lead teacher a week ago and no changes were [...] Disease) Recurrent Pulmonary Embolism (Hcc) External Hemorrhoid Assisted (Current) Use of Anticoagulants Colonic Polyp History [...] Hills MD documented [facility] Miscellaneous Notes* Telephone Encounter - Franc Hills MD - 08/20/2021 6:00 PM EDT Noted. * Telephone Encounter - Corrina Velarde LPN - 08/20/2021 10:07 AM EDT Pt calling to report he tested NEG on a government issued home covid this this am. Pt is asymptomatic but tested himself because he is around many nurses. Corrina Velarde LPN documented in this encounterK[facility] Instructions* Patient Instructions* Mj Dos Santos MD - 08/16/2021 1:48 PM EDT 1) Continue current medications 2) Encourage physical activity - 30mins x 5 times a week 3) Can inquire about Xarelto 10mg daily from [facility]. Maybe able to switch to that in the future documented in this encounterK[facility] History of Present illness Narrative* Mj Dos Santos MD - 08/16/2021 1:30 PM EDT Images from the original note were not included. [facility] [place] [facility] Department of Cardiovascular Medicine SECTION OF CLINICAL CARDIOLOGY OUTPATIENT VISIT DATE August 15, 2021 OUTPATIENT VISIT TYPE ESTABLISHED PRIMARY CARE PHYSICIAN: Franc Hills [address] [place] [address] REFERRING PHYSICIAN: Mj Dos Santos [address] [facility] [id number] CHIEF COMPLAINT: Multisite atherosclerotic disease HISTORY OF [...] to knees, as of 2008 --- in [place], neurologist thought related to alcohol; Has had [...] ABNORMAL ECG Confirmed by RAMON LINCOLN, LEEANN ([id number]) on 03/12/2021 11:59:07 AM Complete Results Component [...] CONTACT INFORMATION: Mj Dos Santos MD, MS, [facility] Department of Cardiovascular Medicine [address], [place] [address] Appointments: (Cardiology); (Vascular Medicine) This note was dictated using a voice recognition software. Please excuse any inadvertent typographical/grammatical/syntax errors that may have escaped the final proofread. Please don't hesitate to contact my office for any clarification. documented in this encounterK[facility]22 Miscellaneous Notes* Telephone Encounter - Kristina Youssef LPN - 08/15/2021 12:15 PM EDT Pt notified. * Telephone Encounter - Franc Hills MD - 08/14/2021 6:09 PM EDT I don't think he can benefit from this. * Telephone Encounter - Tala Torres LPN - 08/14/2021 3:41 PM EDT Patient calling with question, [facility] This last email has him wondering if this may help him? It was email concerning [facility]. Patient isasking if it would help his balance issues with his neuropathy? Patient said can send him a my chart message back, it would be easier. He thinks the email comes from main campus. Please advise documented in this encounterK[facility]22 Miscellaneous Notes* Telephone Encounter - Franc Hills [...] Gracia LPN documented in this encounterK[facility]-04-2022 Miscellaneous Notes* Telephone Encounter - Cyndy Whelan [...] 10 mg. documented in this encounterK[facility]20-2022 Miscellaneous Notes* Telephone Encounter - Alvin He [...] ^ veggies. documented in this encounterK[facility]-08-2022 Miscellaneous Notes* Telephone Encounter - Joce Schmid [...] tomorrow. Pt would like to wait until BOOK AGENT returns to ofc tomorrow to get her recommendation since shesaw pt for problem. Please advise. Corrina Velarde LPN documented in this encounterK[facility]06-2022 Miscellaneous Notes* Telephone Encounter - Kari Briones [...] Ann RN documented in this encounterK[facility]30-[facility]22 History of Present illness Narrative* Sara Older, DIRECTOR OF INCOME TAX.COMPUTER TECHNOLOGY TRAINER - 07/03/2021 12:47 PM EDT CC: Patient [...] to knees, as of 2008 --- in [place], neurologist thought related to alcohol; Has had [...] Baxter APRN.CNP documented in this encounterK[facility]24-2022 Miscellaneous Notes* Telephone Encounter - Kari Briones [...] is 2-3. documented in this encounterKet[facility] History of Past illness Narrative* Problem Noted [...] encounter (statuses as of 11/14/2021) [facility] of [facility] Narrative* Problem Noted [...] encounter (statuses as of 11/14/2021) [facility] Narrative* Problem Noted [...] encounter (statuses as of 11/25/2021) [facility] of Past illness Narrative* Problem Noted [...] encounter (statuses as of 11/27/2021) [facility] of Past illness Narrative* Problem Noted [...] encounter (statuses as of 11/28/2021) [facility] of Past illness Narrative* Problem Noted [...] encounter (statuses as of 12/10/2021) [facility] Past [facility] Narrative* Problem Noted [...] encounter (statuses as of 12/11/2021) [facility] Narrative* Problem Noted [...] encounter (statuses as of 12/12/2021) [facility] Past [facility] Narrative* Problem Noted [...] encounter (statuses as of 12/17/2021) [facility] Narrative* Problem Noted [...] encounter (statuses as of 12/17/2021) [facility] Narrative* Problem Noted [...] encounter (statuses as of 12/18/2021) [facility] Past illness Narrative* Problem Noted [...] encounter (statuses as of 12/18/2021) [facility] Past illness Narrative* Problem Noted [...] encounter (statuses as of 12/19/2021) [facility] Past illness Narrative* Problem Noted [...] encounter (statuses as of 12/26/2021) [facility] of Past illness Narrative* Problem Noted [...] encounter (statuses as of 01/01/2022) [facility] Past [facility] Narrative* Problem Noted [...] encounter (statuses as of 01/02/2022) [facility] Narrative* Problem Noted [...] encounter (statuses as of 01/03/2022) [facility] Narrative* Problem Noted [...] encounter (statuses as of 01/07/2022) [facility] Narrative* Problem Noted [...] encounter (statuses as of 01/08/2022) [facility] Narrative* Problem Noted [...] encounter (statuses as of 01/15/2022) [facility] Narrative* Problem Noted [...] encounter (statuses as of 01/16/2022) [facility] Past [facility] Narrative* Problem Noted [...] encounter (statuses as of 01/22/2022) [facility] Past [facility] Narrative* Problem Noted [...] encounter (statuses as of 01/25/2022) [facility] Narrative* Problem Noted [...] encounter (statuses as of 02/01/2022) [facility] Narrative* Problem Noted [...] encounter (statuses as of 02/01/2022) [facility] Narrative* Problem Noted [...] encounter (statuses as of 02/03/2022) [facility] Narrative* Problem Noted [...] encounter (statuses as of 02/03/2022) [facility] Narrative* Problem Noted [...] encounter (statuses as of 02/12/2022) [facility] Narrative* Problem Noted [...] encounter (statuses as of 02/18/2022) [facility] Narrative* Problem Noted [...] encounter (statuses as of 02/19/2022) [facility] Narrative* Problem Noted [...] encounter (statuses as of 03/06/2022) [facility] Narrative* Problem Noted [...] encounter (statuses as of 03/13/2022) [facility] Past [facility] Narrative* Problem Noted [...] encounter (statuses as of 03/18/2022) [facility] Narrative* Problem Noted [...] encounter (statuses as of 03/18/2022) [facility] Narrative* Problem Noted [...] encounter (statuses as of 03/19/2022) [facility] Narrative* Problem Noted [...] encounter (statuses as of 03/26/2022) [facility] Narrative* Problem Noted [...] encounter (statuses as of 04/08/2022) [facility] Narrative* Problem Noted [...] encounter (statuses as of 04/09/2022) [facility] Narrative* Problem Noted [...] encounter (statuses as of 04/10/2022) [facility] Narrative* Problem Noted [...] encounter (statuses as of 04/12/2022) [facility] Narrative* Problem Noted [...] encounter (statuses as of 04/16/2022) [facility] Narrative* Problem Noted [...] encounter (statuses as of 04/17/2022) [facility] Narrative* Problem Noted [...] encounter (statuses as of 04/24/2022) [facility] Narrative* Problem Noted [...] encounter (statuses as of 04/24/2022) [facility] Past [facility] Narrative* Problem Noted [...] encounter (statuses as of 05/10/2022) [facility] Narrative* Problem Noted [...] encounter (statuses as of 05/18/2022) [facility] Past [facility] Narrative* Problem Noted [...] encounter (statuses as of 05/21/2022) [facility] Narrative* Problem Noted [...] encounter (statuses as of 05/22/2022) [facility] Narrative* Problem Noted [...] encounter (statuses as of 05/26/2022) [facility] Narrative* Problem Noted [...] encounter (statuses as of 06/03/2022) [facility] Narrative* Problem Noted [...] encounter (statuses as of 06/03/2022) [facility] Narrative* Problem Noted [...] encounter (statuses as of 06/04/2022) [facility] Narrative* Problem Noted [...] encounter (statuses as of 06/04/2022) [facility] Narrative* Problem Noted [...] encounter (statuses as of 06/05/2022) [facility] Narrative* Problem Noted [...] encounter (statuses as of 06/09/2022) [facility] Narrative* Problem Noted [...] encounter (statuses as of 06/17/2022) [facility] Narrative* Problem Noted [...] encounter (statuses as of 06/18/2022) [facility] Narrative* Problem Noted [...] encounter (statuses as of 07/02/2022) [facility] Narrative* Problem Noted [...] encounter (statuses as of 07/10/2022) [facility] Narrative* Problem Noted [...] encounter (statuses as of 07/17/2022) [facility] Narrative* Problem Noted [...] encounter (statuses as of 07/30/2022) [facility] Narrative* Problem Noted [...] encounter (statuses as of 07/30/2022) [facility] Narrative* Problem Noted [...] encounter (statuses as of 08/06/2022) [facility] Narrative* Problem Noted [...] encounter (statuses as of 08/08/2022) [facility] Past [facility] Narrative* Problem Noted [...] encounter (statuses as of 08/12/2022) [facility] Narrative* Problem Noted [...] encounter (statuses as of 09/11/2022) [facility] Narrative* Problem Noted [...] encounter (statuses as of 09/03/2022) [facility] Narrative* Problem Noted [...] encounter (statuses as of 09/10/2022) [facility] Narrative* Problem Noted [...] encounter (statuses as of 09/19/2022) [facility] Narrative* Problem Noted [...] encounter (statuses as of 09/23/2022) [facility] Narrative* Problem Noted [...] encounter (statuses as of 09/26/2022) [facility] Narrative* Problem Noted [...] encounter (statuses as of 10/01/2022) [facility] Narrative* Problem Noted [...] encounter (statuses as of 10/02/2022) [facility] Narrative* Problem Noted [...] encounter (statuses as of 10/14/2022) [facility] Past [facility] Narrative* Problem Noted [...] encounter (statuses as of 10/17/2022) [facility] Narrative* Problem Noted [...] encounter (statuses as of 10/29/2022) [facility] Past [facility] Narrative* Problem Noted [...] encounter (statuses as of 11/06/2022) [facility] Past [facility] Narrative* Problem Noted [...] encounter (statuses as of 11/07/2022) [facility] Narrative* Problem Noted [...] encounter (statuses as of 11/10/2022) [facility] Narrative* Problem Noted [...] encounter (statuses as of 11/11/2022) [facility] Past [facility] Narrative* Problem Noted [...] encounter (statuses as of 11/11/2022) [facility] Narrative* Problem Noted [...] encounter (statuses as of 11/12/2022) [facility] Narrative* Problem Noted [...] encounter (statuses as of 11/13/2022) [facility] Narrative* Problem Noted [...] encounter (statuses as of 11/19/2022) [facility] Narrative* Problem Noted [...] encounter (statuses as of 11/19/2022) [facility] Narrative* Problem Noted [...] encounter (statuses as of 11/25/2022) [facility] Narrative* Problem Noted [...] encounter (statuses as of 12/02/2022) [facility] Narrative* Problem Noted [...] encounter (statuses as of 12/03/2022) [facility] Past [facility] Narrative* Problem Noted [...] encounter (statuses as of 12/04/2022) [facility] Narrative* Problem Noted [...] encounter (statuses as of 12/06/2022) [facility] Past [facility] Narrative* Problem Noted [...] encounter (statuses as of 12/09/2022) [facility] Narrative* Problem Noted [...] encounter (statuses as of 12/10/2022) [facility] Past [facility] Narrative* Problem Noted [...] encounter (statuses as of 12/10/2022) [facility] Narrative* Problem Noted [...] encounter (statuses as of 12/17/2022) [facility] Narrative* Problem Noted [...] encounter (statuses as of 12/17/2022) [facility] Narrative* Problem Noted [...] encounter (statuses as of 12/17/2022) [facility] Narrative* Problem Noted [...] encounter (statuses as of 12/25/2022) [facility] Past [facility] Narrative* Problem Noted [...] encounter (statuses as of 12/30/2022) [facility] Past [facility] Narrative* Problem Noted [...] encounter (statuses as of 12/30/2022) [facility] Past [facility] Narrative* Problem Noted [...] encounter (statuses as of 01/09/2023) [facility] Past [facility] Narrative* Problem Noted [...] encounter (statuses as of 01/10/2023) [facility] Past [facility] Narrative* Problem Noted [...] encounter (statuses as of 01/12/2023) [facility] Past [facility] Narrative* Problem Noted [...] encounter (statuses as of 01/14/2023) [facility] Narrative* Problem Noted [...] encounter (statuses as of 01/15/2023) [facility] Past [facility] Narrative* Problem Noted [...] encounter (statuses as of 01/20/2023) [facility] Past [facility] Narrative* Problem Noted [...] encounter (statuses as of 01/22/2023) [facility] Past [facility] Narrative* Problem Noted [...] encounter (statuses as of 01/22/2023) [facility] Past [facility] Narrative* Problem Noted [...] encounter (statuses as of 01/23/2023) [facility] Past [facility] Narrative* Problem Noted [...] encounter (statuses as of 01/30/2023) [facility] Past [facility] Narrative* Problem Noted [...] encounter (statuses as of 01/30/2023) [facility] Narrative* Problem Noted [...] encounter (statuses as of 02/04/2023) [facility] Narrative* Problem Noted [...] encounter (statuses as of 02/10/2023) [facility] Narrative* Problem Noted [...] encounter (statuses as of 02/10/2023) [facility] Narrative* Problem Noted [...] encounter (statuses as of 02/11/2023) [facility] Narrative* Problem Noted [...] encounter (statuses as of 02/18/2023) [facility] Narrative* Problem Noted [...] encounter (statuses as of 02/24/2023) [facility] Narrative* Problem Noted [...] encounter (statuses as of 02/27/2023) [facility] Narrative* Problem Noted [...] encounter (statuses as of 03/02/2023) [facility] Narrative* Problem Noted [...] encounter (statuses as of 03/05/2023) [facility] Narrative* Problem Noted [...] encounter (statuses as of 03/10/2023) [facility] Narrative* Problem Noted [...] encounter (statuses as of 03/19/2023) [facility] Narrative* Problem Noted [...] encounter (statuses as of 03/21/2023) [facility] Narrative* Problem Noted [...] encounter (statuses as of 03/25/2023) [facility] Narrative* Problem Noted [...] encounter (statuses as of 05/08/2023) [facility] Narrative* Problem Noted [...] encounter (statuses as of 05/08/2023) [facility] Narrative* Problem Noted [...] encounter (statuses as of 05/13/2023) [facility] Narrative* Problem Noted [...] encounter (statuses as of 05/14/2023) [facility] Narrative* Problem Noted [...] encounter (statuses as of 05/15/2023) [facility] Narrative* Problem Noted [...] encounter (statuses as of 05/18/2023) [facility] Narrative* Problem Noted [...] encounter (statuses as of 05/19/2023) [facility] Narrative* Problem Noted [...] encounter (statuses as of 05/22/2023) [facility] Narrative* Problem Noted [...] encounter (statuses as of 05/23/2023) [facility] Narrative* Problem Noted [...] encounter (statuses as of 05/25/2023) [facility] Narrative* Problem Noted [...] encounter (statuses as of 05/26/2023) [facility] Narrative* Problem Noted [...] encounter (statuses as of 05/26/2023) [facility] Narrative* Problem Noted [...] encounter (statuses as of 05/29/2023) [facility] Narrative* Problem Noted [...] encounter (statuses as of 05/30/2023) [facility] Narrative* Problem Noted [...] encounter (statuses as of 06/02/2023) [facility] Narrative* Problem Noted [...] encounter (statuses as of 06/02/2023) [facility] Narr[facility]* Problem Noted [...] encounter (statuses as of 06/04/2023) [facility] Narrative* Problem Noted [...] encounter (statuses as of 06/04/2023) [facility] Narrative* Problem Noted [...] encounter (statuses as of 06/05/2023) [facility] Narrative* Problem Noted [...] encounter (statuses as of 06/08/2023) [facility] Narrative* Problem Noted [...] encounter (statuses as of 06/10/2023) [facility] Narrative* Problem Noted [...] encounter (statuses as of 06/11/2023) [facility] Narrative* Problem Noted [...] encounter (statuses as of 06/12/2023) [facility] Narrative* Problem Noted [...] encounter (statuses as of 06/12/2023) [facility] Narrative* Problem Noted [...] encounter (statuses as of 06/15/2023) [facility] Narrative* Problem Noted [...] encounter (statuses as of 06/15/2023) [facility] Narrative* Problem Noted [...] encounter (statuses as of 06/16/2023) [facility] Narrative* Problem Noted [...] encounter (statuses as of 06/19/2023) [facility] Narrative* Problem Noted [...] encounter (statuses as of 06/19/2023) [facility] Narr[facility]* Problem Noted [...] encounter (statuses as of 06/23/2023) [facility] Narrative* Problem Noted [...] encounter (statuses as of 06/26/2023) [facility] History of Past illness Narrative* Problem Noted [...] encounter (statuses as of 06/29/2023) [facility] History of Past illness Narrative* Problem Noted [...] encounter (statuses as of 06/30/2023) [facility] History of Past illness Narrative* Problem Noted [...] encounter (statuses as of 07/07/2023) [facility] History of Past illness Narrative* Problem Noted [...] encounter (statuses as of 07/16/2023) [facility] History of Past illness Narrative* Problem Noted [...] encounter (statuses as of 07/16/2023) [facility] History of Past illness Narrative* Problem Noted [...] encounter (statuses as of 07/16/2023) [facility] History of Past illness Narrative* Problem Noted [...] encounter (statuses as of 07/17/2023) [facility] History of Past illness Narrative* Problem Noted [...] encounter (statuses as of 07/17/2023) [facility] History of Past illness Narrative* Problem Noted [...] encounter (statuses as of 07/20/2023) [facility] History of Past illness Narrative* Problem Noted [...] encounter (statuses as of 07/21/2023) [facility] History of Past illness Narrative* Problem Noted [...] encounter (statuses as of 07/21/2023) [facility] History of Past illness Narrative* Problem Noted [...] encounter (statuses as of 07/22/2023) [facility] History of Past illness Narrative* Problem Noted [...] encounter (statuses as of 07/24/2023) [facility]2020 History of Present illness Narrative* Jennifer Gomes [...] 10:12 AM [facility] Narrative* Problem Noted [...] encounter (statuses as of 06/27/2021) [facility] History of Past illness Narrative* Problem Noted [...] encounter (statuses as of 07/03/2021) [facility] History of Past illness Narrative* Problem Noted [...] encounter (statuses as of 07/10/2021) [facility] History of Past illness Narrative* Problem Noted [...] encounter (statuses as of 07/12/2021) [facility] History of Past illness Narrative* Problem Noted [...] encounter (statuses as of 07/24/2021) [facility] History of Past illness Narrative* Problem Noted [...] encounter (statuses as of 08/07/2021) [facility] History of Past illness Narrative* Problem Noted [...] encounter (statuses as of 08/08/2021) [facility] History of Past illness Narrative* Problem Noted [...] encounter (statuses as of 08/12/2021) [facility] History of Past illness Narrative* Problem Noted [...] encounter (statuses as of 08/15/2021) [facility] History of Past illness Narrative* Problem Noted [...] encounter (statuses as of 08/16/2021) [facility] History of Past illness Narrative* Problem Noted [...] encounter (statuses as of 08/20/2021) [facility] History of Past illness Narrative* Problem Noted [...] encounter (statuses as of 08/22/2021) [facility] History of Past illness Narrative* Problem Noted [...] encounter (statuses as of 08/23/2021) [facility] History of Past illness Narrative* Problem Noted [...] encounter (statuses as of 08/23/2021) [facility] History of Past illness Narrative* Problem Noted [...] encounter (statuses as of 09/04/2021) [facility] History of Past illness Narrative* Problem Noted [...] encounter (statuses as of 09/04/2021) [facility] History of Past illness Narrative* Problem Noted [...] encounter (statuses as of 09/18/2021) [facility] History of Past illness Narrative* Problem Noted [...] encounter (statuses as of 09/20/2021) [facility] History of Past illness Narrative* Problem Noted [...] encounter (statuses as of 09/23/2021) [facility] History of Past illness Narrative* Problem Noted [...] encounter (statuses as of 09/23/2021) [facility] History of Past illness Narrative* Problem Noted [...] encounter (statuses as of 10/02/2021) [facility] History of Past illness Narrative* Problem Noted [...] encounter (statuses as of 10/03/2021) [facility] History of Past illness Narrative* Problem Noted [...] encounter (statuses as of 10/14/2021) [facility] History of Past illness Narrative* Problem Noted [...] encounter (statuses as of 10/16/2021) [facility] History of Past illness Narrative* Problem Noted [...] encounter (statuses as of 10/16/2021) [facility] History of Past illness Narrative* Problem Noted [...] encounter (statuses as of 10/25/2021) [facility] History of Past illness Narrative* Problem Noted [...] encounter (statuses as of 11/02/2021) [facility] History of Past illness Narrative* Problem Noted [...] encounter (statuses as of 11/12/2021) [facility] 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 Long-term (current) use of anticoagulants Recurrent pulmonary embolism (HCC) Other pulmonary embolism and infarction Encounter for screening for COVID-19 [facility] Diagnosis Suppurative otitis media of right ear, unspecified chronicity- Primary [facility]* 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 Long-term (current) use of anticoagulants Recurrent pulmonary embolism (HCC) Other pulmonary embolism and infarction [facility] Diagnosis penitentiary (current) use of anticoagulants- Primary Long-term (current) use of anticoagulants Recurrent pulmonary embolism (HCC) [facility] Diagnosis Chronic low back pain without sciatica, unspecified back pain laterality [facility] Recurrent pulmonary embolism (HCC)- Primary Other pulmonary embolism and infarction History of left-sided carotid endarterectomy Mixed hyperlipidemia Primary hypertension Unspecified essential hypertension PAD (peripheral artery disease) (HCC) Peripheral vascular disease, unspecified [facility] Diagnosis Eustachian tube dysfunction, right- Primary Primary hypertension Unspecified essential hypertension Recurrent pulmonary embolism (HCC) Other pulmonary embolism and infarction [facility] Diagnosis penitentiary (current) use of anticoagulants- Primary Long-term (current) use of anticoagulants Recurrent pulmonary embolism (HCC) Other pulmonary embolism and infarction [facility] Diagnosis Insomnia, unspecified type [facility]* Diagnosis Pain in gums- Primary Unspecified gingival and periodontal disease Periodontal disease Unspecified gingival and periodontal disease Chronic low back pain without sciatica, unspecified back pain laterality [facility] noteNo assessment information availableWOhio[facility] Work Phone: [facility] note* Diagnosis Essential hypertension Unspecified essential hypertension [facility]* 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 Long-term (current) use of anticoagulants Recurrent pulmonary embolism (HCC) Other pulmonary embolism and infarction [facility] Diagnosis Fall, subsequent encounter- Primary Chronic low back pain without sciatica, unspecified back pain laterality Closed head injury, subsequent encounter Neck pain on right side Cervicalgia Recurrent pulmonary embolism (HCC) Other pulmonary embolism and infarction [facility] 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 Long-term (current) use of anticoagulants Recurrent pulmonary embolism (HCC) Other pulmonary embolism and infarction [facility] Diagnosis Personal history of colonic polyps- Primary [facility] Diagnosis Primary hypertension- Primary Unspecified essential hypertension penitentiary (current) use of anticoagulants Long-term (current) use of anticoagulants Mixed hyperlipidemia Screening for prostate cancer Special screening for malignant neoplasm of prostate Chronic low back pain without sciatica, unspecified back pain laterality [facility]* Diagnosis Recurrent pulmonary embolism (HCC) Other pulmonary embolism and infarction [facility]* Diagnosis Mixed hyperlipidemia [facility] Diagnosis Macular hole of left eye- Primary Macular cyst, hole, or pseudohole of retina [facility] Diagnosis Chronic low back pain without sciatica, unspecified back pain laterality [facility]* Diagnosis Stenosis of left carotid artery- Primary Occlusion and stenosis of carotid artery without mention of cerebral infarction [facility]* 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 Long-term (current) use of anticoagulants Recurrent pulmonary embolism (HCC) Other pulmonary embolism and infarction [facility] Diagnosis Primary hypertension- Primary Unspecified essential hypertension 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 Long-term (current) use of anticoagulants Recurrent pulmonary embolism (HCC) Other pulmonary embolism and infarction Chronic low back pain without sciatica, unspecified back pain laterality [facility] Diagnosis penitentiary (current) use of anticoagulants- Primary Long-term (current) use of anticoagulants Recurrent pulmonary embolism (HCC) Other pulmonary embolism and infarction [facility]* Diagnosis Recurrent pulmonary embolism (HCC)- Primary Other pulmonary embolism and infarction [facility]* Diagnosis Pain, dental Unspecified disorder of the teeth and supporting structures Insomnia, unspecified type [facility] Diagnosis Onset Date Resolution Status Hx of adenomatous colonic polyps acute [facility] Work Phone: Evaluation note* Diagnosis Essential hypertension Unspecified essential hypertension [facility]* Diagnosis Primary hypertension Unspecified essential hypertension [facility]* Diagnosis Recurrent pulmonary embolism (HCC)- Primary Other pulmonary embolism and infarction Mixed hyperlipidemia Primary hypertension Unspecified essential hypertension [facility]* Diagnosis Pain, dental Unspecified disorder of the teeth and supporting structures [facility]* Diagnosis Medicare annual wellness visit, subsequent- Primary Routine general medical examination at a health care facility PAD (peripheral artery disease) (HCC) Peripheral vascular disease, unspecified Chronic low back pain without sciatica, unspecified back pain laterality Primary hypertension Unspecified essential hypertension Mixed hyperlipidemia Recurrent pulmonary embolism (HCC) Other pulmonary embolism and infarction Impaired fasting glucose [facility]* Diagnosis Recurrent pulmonary embolism (HCC)- Primary Other pulmonary embolism and infarction History of left-sided carotid endarterectomy Mixed hyperlipidemia Primary hypertension Unspecified essential hypertension PAD (peripheral artery disease) (HCC) Peripheral vascular disease, unspecified Anticoagulation management encounter Encounter for therapeutic drug monitoring [facility] Diagnosis Chronic low back pain without sciatica, unspecified back pain laterality- Primary Primary hypertension Unspecified essential hypertension Impaired fasting glucose [facility]* 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 Long-term (current) use of anticoagulants Recurrent pulmonary embolism (HCC) Other pulmonary embolism and infarction [facility]* Diagnosis Insomnia, unspecified type [facility]* Diagnosis Chronic low back pain without sciatica, unspecified back pain laterality- Primary Spinal stenosis of lumbar region, unspecified whether neurogenic claudication present [facility]* Diagnosis penitentiary (current) use of anticoagulants- Primary Long-term (current) use of anticoagulants Recurrent pulmonary embolism (HCC) Other pulmonary embolism and infarction [facility]* Diagnosis Spinal stenosis, lumbar region with neurogenic claudication- Primary [facility]* Diagnosis Chronic low back pain without sciatica, unspecified back pain laterality [facility]* 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 Long-term (current) use of anticoagulants Recurrent pulmonary embolism (HCC) Other pulmonary embolism and infarction [facility]* Diagnosis Recurrent pulmonary embolism (HCC)- Primary Other pulmonary embolism and infarction penitentiary (current) use of anticoagulants Long-term (current) use of anticoagulants [facility]* Diagnosis Recurrent pulmonary embolism (HCC) Other pulmonary embolism and infarction [facility]* Diagnosis Recurrent pulmonary embolism (HCC) Other pulmonary embolism and infarction [facility]* Diagnosis Chronic low back pain without sciatica, unspecified back pain laterality Spinal stenosis of lumbar region, unspecified whether neurogenic claudication present documented in this encounter [facility] note* Diagnosis Radiculopathy, lumbar region- Primary Thoracic or lumbosacral neuritis or radiculitis, unspecified [facility]* Diagnosis Chronic low back pain without sciatica, unspecified back pain laterality documented in this encounter [facility] note* Diagnosis Radiculopathy, lumbar region- Primary Thoracic or lumbosacral neuritis or radiculitis, unspecified Radiculopathy, lumbar region Thoracic or lumbosacral neuritis or radiculitis, unspecified documented in this encounter [facility] note* Diagnosis Chronic low back pain without sciatica, unspecified back pain laterality- Primary Primary hypertension Unspecified essential hypertension Kidney insufficiency Unspecified disorder of kidney and ureter Impaired fasting glucose Radiculopathy, lumbar region Thoracic or lumbosacral neuritis or radiculitis, unspecified documented in this encounter [facility] note* 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 Long-term (current) use of anticoagulants Recurrent pulmonary embolism (HCC) Other pulmonary embolism and infarction Radiculopathy, lumbar region Thoracic or lumbosacral neuritis or radiculitis, unspecified [facility]* Diagnosis Macular hole of left eye- Primary Macular cyst, hole, or pseudohole of retina Posterior vitreous detachment of right eye Vitreous degeneration Radiculopathy, lumbar region Thoracic or lumbosacral neuritis or radiculitis, unspecified [facility]* Diagnosis Insomnia, unspecified type Radiculopathy, lumbar region Thoracic or lumbosacral neuritis or radiculitis, unspecified [facility]* Diagnosis Lumbar spondylosis- Primary Lumbosacral spondylosis without myelopathy Chronic low back pain without sciatica, unspecified back pain laterality Hereditary and idiopathic peripheral neuropathy Unspecified hereditary and idiopathic peripheral neuropathy Spinal stenosis of lumbar region, unspecified whether neurogenic claudication present Radiculopathy, lumbar region Thoracic or lumbosacral neuritis or radiculitis, unspecified [facility]* Diagnosis Gastroesophageal reflux disease without esophagitis- Primary Esophageal reflux Acute gastritis without hemorrhage, unspecified gastritis type [facility]* Diagnosis penitentiary (current) use of anticoagulants- Primary Long-term (current) use of anticoagulants Recurrent pulmonary embolism (HCC) Other pulmonary embolism and infarction [facility]* 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 Long-term (current) use of anticoagulants Recurrent pulmonary embolism (HCC) Other pulmonary embolism and infarction [facility]* Diagnosis Spinal stenosis of lumbar region, unspecified whether neurogenic claudication present- Primary Lumbar spondylosis Lumbosacral spondylosis without myelopathy [facility]* Diagnosis Mixed hyperlipidemia- Primary Recurrent pulmonary embolism (HCC) Other pulmonary embolism and infarction 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 Long-term (current) use of anticoagulants Acute gastritis without hemorrhage, unspecified gastritis type History of left-sided carotid endarterectomy Spinal stenosis of lumbar region, unspecified whether neurogenic claudication present Primary hypertension Unspecified essential hypertension documented in this encounter [facility] note* Diagnosis Recurrent pulmonary embolism (HCC) Other pulmonary embolism and infarction [facility]* Diagnosis Primary hypertension Unspecified essential hypertension [facility]* Diagnosis Acute gastritis without hemorrhage, unspecified gastritis type [facility]* Diagnosis Encounter for therapeutic drug monitoring- Primary Mixed hyperlipidemia Impaired fasting glucose Vitamin D deficiency Unspecified vitamin D deficiency [facility]* Diagnosis Acute gastritis without hemorrhage, unspecified gastritis type- Primary Chronic low back pain without sciatica, unspecified back pain laterality documented in this encounter [facility] note* Diagnosis Impaired fasting glucose- Primary [facility]* Diagnosis Insomnia, unspecified type- Primary [facility]* 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 Long-term (current) use of anticoagulants Recurrent pulmonary embolism (HCC) Other pulmonary embolism and infarction [facility]* Diagnosis Recurrent pulmonary embolism (HCC)- Primary Other pulmonary embolism and infarction documented in this encounter [facility] note* Diagnosis Insomnia, unspecified type [facility]* Diagnosis Chronic low back pain without sciatica, unspecified back pain laterality [facility]* Diagnosis Acute bilateral low back pain without sciatica- Primary Lumbar pain Lumbago Fall, subsequent encounter Recurrent pulmonary embolism (HCC) Other pulmonary embolism and infarction [facility]* Diagnosis Chronic low back pain without sciatica, unspecified back pain laterality [facility]* Diagnosis penitentiary (current) use of anticoagulants- Primary Long-term (current) use of anticoagulants Recurrent pulmonary embolism (HCC) Other pulmonary embolism and infarction [facility]* Diagnosis Chronic low back pain without sciatica, unspecified back pain laterality [facility]* Diagnosis Lumbar pain Lumbago Acute bilateral low back pain without sciatica Fall, subsequent encounter [facility]* Diagnosis Compression fracture of L1 vertebra with routine healing, subsequent encounter- Primary [facility] Diagnosis Compression fracture of L1 vertebra, initial encounter ([facility] Diagnosis penitentiary (current) use of anticoagulants- Primary Long-term (current) [...] Sciatic leg pain [facility] Lumbar pain Lumbago Acute bilateral low back pain without sciatica Fall, subsequent encounter 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 Long-term (current) [...] 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 Long-term (current) [...] [facility] (current) use of anticoagulants- Primary Long-term (current) [...] [facility] Diagnosis [facility] (current) use of anticoagulants- Primary Long-term (current) [...] [facility] pen[facility]iary (current) use of anticoagulants- Primary Long-term (current) [...] of kidney and ureter Impaired fasting glucose penitentiary (current) use of anticoagulants Long-term (current) use [...] [facility] Diagnosis pen[facility]iary (current) use of anticoagulants- Primary Long-term (current) use of anticoagulants Recurrent pulmonary embolism (HCC) Other pulmonary embolism and infarction [facility] Diagnosis Compression fracture of L1 vertebra with routine healing, subsequent encounter Chronic bilateral low back pain with bilateral sciatica [facility] 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 Long-term (current) use of anticoagulants Recurrent pulmonary embolism (HCC) Other pulmonary embolism and infarction [facility] Diagnosis penitentiary (current) use of anticoagulants- Primary Long-term (current) [...] Insomnia, unspecified type [facility] Diagnosis Primary hypertension- Primary Unspecified essential [...] Unspecified essential hypertension [facility] Diagnosis Primary hypertension- Primary Unspecified [...] [facility] Diagnosis Recurrent pulmonary embolism (HCC) Other pulmonary embolism and infarction Pain, dental Unspecified disorder of the teeth and supporting structures Compression fracture of L1 vertebra with routine healing, subsequent encounter Chronic low back pain without sciatica, unspecified back pain laterality Primary hypertension Unspecified essential hypertension [facility] Diagnosis Recurrent pulmonary embolism (HCC) Other pulmonary embolism and infarction [facility] Diagnosis Primary hypertension Unspecified essential hypertension Dizziness Dizziness and giddiness [facility] Diagnosis Insomnia, unspecified type [facility] Diagnosis Recurrent pulmonary embolism (HCC)- Primary Other pulmonary embolism and infarction [facility] Diagnosis Side effect of medication- Primary [facility] Diagnosis Shortness of breath- Primary Chronic low back pain without sciatica, unspecified back pain laterality Neck pain Cervicalgia [facility] Diagnosis Onychomycosis- Primary Dermatophytosis of nail Pain in toe of left foot Pain in limb Pain in toe of right foot Pain in limb PAD (peripheral artery disease) ([facility]) Peripheral vascular disease, unspecified Hammer toe, unspecified laterality [facility] Diagnosis PAD (peripheral artery disease) ([facility])- Primary Peripheral vascular disease, unspecified Stenosis of left carotid artery Occlusion and stenosis of carotid artery without mention of cerebral infarction [facility] Diagnosis Insomnia, unspecified type [facility] Diagnosis Shortness of breath- Primary Primary hypertension Unspecified essential hypertension Chronic low back pain without sciatica, unspecified back pain laterality Bilateral carotid artery stenosis Occlusion and stenosis of carotid artery without mention of cerebral infarction Vision abnormalities Unspecified visual disturbance [facility] Diagnosis Compression fracture of L1 vertebra with routine healing, subsequent encounter- Primary Chronic bilateral low back pain with bilateral sciatica Lumbar pain Lumbago [facility] Diagnosis Primary hypertension Unspecified essential hypertension [facility] Diagnosis Shortness of breath [facility] Diagnosis penitentiary (current) use of anticoagulants- Primary Long-term (current) use of anticoagulants Recurrent pulmonary embolism (HCC) Other pulmonary embolism and infarction [facility] Diagnosis Shortness of breath [facility] Diagnosis Shortness of breath [facility] Diagnosis Shortness of breath- Primary Primary hypertension Unspecified essential hypertension Recurrent pulmonary embolism (HCC) Other pulmonary embolism and infarction Chronic low back pain without sciatica, unspecified back pain laterality Neck pain Cervicalgia [facility] Diagnosis Chronic low back pain without sciatica, unspecified back pain laterality- Primary [facility] Diagnosis Shortness of breath- Primary [facility] Diagnosis Shortness of breath- Primary [facility] Diagnosis Shortness of breath- Primary MCI (mild cognitive impairment) Mild cognitive impairment, so stated [facility] Diagnosis PAD (peripheral artery disease)- Primary Peripheral vascular disease, unspecified Bilateral carotid artery stenosis Occlusion and stenosis of carotid artery without mention of cerebral infarction Primary hypertension Unspecified essential hypertension Mixed hyperlipidemia History of left-sided carotid endarterectomy Recurrent pulmonary embolism (HCC) Other pulmonary embolism and infarction [facility] Diagnosis Chronic low back pain without sciatica, unspecified back pain laterality- Primary [facility] Diagnosis Macular hole of left eye- Primary Macular cyst, hole, or pseudohole of retina Posterior vitreous detachment of right eye Vitreous degeneration [facility] Diagnosis Medicare annual wellness visit, subsequent- Primary Routine general medical examination at a health care facility Ulcer of toe of left foot, unspecified ulcer stage (HCC) Shortness of breath MCI (mild cognitive impairment) Mild cognitive impairment, so stated Primary hypertension Unspecified essential hypertension [facility] Diagnosis Primary hypertension Unspecified essential hypertension Acute gastritis without hemorrhage, unspecified gastritis type Recurrent pulmonary embolism (HCC) Other pulmonary embolism and infarction [facility] Diagnosis Chronic low back pain without sciatica, unspecified back pain laterality Neck pain Cervicalgia documented in this encounter [facility]* Diagnosis Insomnia, unspecified type documented in this encounter [facility]* Diagnosis Recurrent pulmonary embolism (HCC) Other pulmonary embolism and infarction Ulcer of toe of left foot, unspecified ulcer stage (HCC) documented in this encounter [facility] note* Diagnosis Encounter for therapeutic drug monitoring- Primary IFG (impaired fasting glucose) Impaired fasting glucose documented in this encounter [facility] note* 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 Long-term (current) use of anticoagulants Recurrent pulmonary embolism (HCC) Other pulmonary embolism and infarction documented in this encounter [facility] note* Diagnosis Primary hypertension Unspecified essential hypertension documented in this encounter [facility] note* Diagnosis SOB (shortness of breath)- Primary Shortness of breath Mild persistent asthma without complication (HCC) Unspecified asthma History of pulmonary embolism Personal history of pulmonary embolism documented in this encounter [facility] note* Diagnosis SOB (shortness of breath) Shortness of breath documented in this encounter [facility] note* Diagnosis Primary hypertension Unspecified essential hypertension documented in this encounter [facility] note* Diagnosis SOB (shortness of breath)- Primary Shortness of breath Chronic low back pain without sciatica, unspecified back pain laterality Compression fracture of L1 vertebra, sequela Recurrent pulmonary embolism (HCC) Other pulmonary embolism and infarction penitentiary (current) use of anticoagulants Long-term (current) use of anticoagulants IFG (impaired fasting glucose) Impaired fasting glucose Primary hypertension Unspecified essential hypertension Vitamin D deficiency Unspecified vitamin D deficiency Insomnia, unspecified type documented in this encounter [facility] for referral (narrative)* Outpatient Procedure (Routine) - Pending Review Specialty Diagnoses / Procedures Referred By Roula t Referred To [facility] Diagnoses PAD (peripheral artery disease) (HCC) Procedures PVR LEG ADIS [facility] NON-INVASIVE PHYSIOLOGIC STUDY EXTREMITY 3 Edgar Rivas DO [address] [place] [address] [facility] [place] [address] [place] [address] Referral ID Status Reason Start Date Expiration Date Visits Requested Visits Authorized [id number] Pending Review Auto-Generat ed Referral 05/26/2023 05/25/2024 1 1 * Outpatient Procedure (Routine) - Pending Review Specialty Diagnoses / Procedures Referred By Contac t Referred To Contact [facility] Diagnoses Stenosis of left carotid artery Procedures US CAROTID ARTERIES [facility] DUPLEX SCAN EXTRACRANIAL ART COMPL BI STUDY Edgar Loaiza DO [address] [place] [address] [facility] [address] [address] Referral ID Status Reason Start Date Expiration Date Visits Requested Visits Authorized [id number] Pending Review Auto-Generat ed Referral 05/26/2023 05/25/2024 1 1 [facility] for referral (narrative)* Outpatient Procedure (Routine) - Pending Review Specialty Diagnoses / Procedures Referred By Contac t Referred To Contact [facility] Diagnoses Screening for ischemic heart disease Procedures ECG COMPLETE ECG ROUTINE ECG W/LEAST 12 LDS W/I&R Sunny Mercedes MD [address] [facility] [place] [address] [address] Referral ID Status Reason Start Date Expiration Date Visits Requested Visits Authorized [id number] Pending Review Auto-Generat ed Referral 06/08/2023 06/07/2024 1 1 [facility] for referral (narrative)* Outpatient Procedure (Routine) - Pending Review Specialty Diagnoses / Procedures Referred By Contac t Referred To Contact [facility] Diagnoses Primary hypertension Procedures ECHO ECHO TTHRC R-T 2D W/WOM-MODE COMPL SPEC&COLR D Zeny Lam, ERIK.COMPUTER TECHNOLOGY TRAINER [address] [place] [address] [facility] [address] [address] Referral ID Status Reason Start Date Expiration Date Visits Requested Visits Authorized [id number] Pending Review Auto-Generat ed Referral 07/27/2023 07/26/2024 1 1 * Medication Prior Authorization - Closed Specialty Diagnoses / Procedures Referred By Contac t Referred To Contact Diagnoses Acute bilateral low back pain with bilateral sciatica Compression fracture of L1 vertebra with routine healing, subsequent encounter Chronic low back pain without sciatica, unspecified back pain laterality Zeny Lam APRN.CNP [address] [place] [address] Referral ID Status Reason Start Date Expiration Date Visits Re quested Visits Authorized [id number] Closed 1 1 [facility] for referral (narrative)* Outpatient Procedure (Routine) - Pending Review Specialty Diagnoses / Procedures Referred By Contac t Referred To Contact [facility] Diagnoses PAD (peripheral artery disease) (HCC) Procedures PVR LEG ADIS [facility]AS [facility] NON-INVASIVE PHYSIOLOGIC STUDY EXTREMITY 3 Edgar Rivas DO [address] [place] [address] [facility] [address] [address] Referral ID Status Reason Start Date Expiration Date Visits Requested Visits Authorized [id number] Pending Review Auto-Generat ed Referral 08/12/2023 08/11/2024 1 1 * Outpatient Procedure (Routine) - Pending Review Specialty Diagnoses / Procedures Referred By Contac t Referred To Contact [facility] Diagnoses Stenosis of left carotid artery Procedures US CAROTID ARTERIES ADIS V[facility] LAB DUPLEX SCAN EXTRACRANIAL ART COMPL BI STUDY Edgar Loaiza DO [address] [place] [address] [facility] [address] [address] Referral ID Status Reason Start Date Expiration Date Visits Requested Visits Authorized [id number] Pending Review Auto-Generat ed Referral 08/12/2023 08/11/2024 1 1 [facility] for referral (narrative)* Outpatient Procedure (Routine) - New Request Specialty Diagnoses / Procedures Referred By Roula tolentino Referred To [facility] Diagnoses SOB (shortness of breath) Procedures ECG COMPLETE ECG ROUTINE ECG W/LEAST 12 LDS W/I&R Zeny Lam APRN.COMPUTER TECHNOLOGY TRAINER [address] [place] [address] [facility] [place] [address] [place] [address] Referral ID Status Reason Start Date Expiration Date Visits Requested Visits Authorized [id number] New Request Auto-Generat ed Referral 01/06/2024 01/05/2025 1 1 [facility] for referral (narrative)* Diagnostic Procedure Only (Routine) - Closed Specialty Diagnoses / Procedures Referred By Roula tolentino Referred To Contact XR IMAGING Diagnoses Neck pain Procedures XR CERV OTHER 4V AP/LAT/OBL RADEX SPINE CERVICAL 4 OR 5 VIEWS Zeny Lam APRN.COMPUTER TECHNOLOGY TRAINER [address] [place] [address] [facility] Referral ID Status Reason Start Date Expiration Date V isits Requested Visits Authorized [id number] Closed Auto-Generate d Referral 02/01/2024 03/02/2025 1 1 [facility] for referral (narrative)No reason for referral information [facility] Work Phone: Reason for visit Narrative* Diagnostic Procedure Only (Routine) - Closed Specialty Diagnoses / Procedures Referred By Roula tolentino Referred To Contact Radiology / [facility] Diagnoses ML Procedures XR CHEST Zeny Lam APRN.CNP [facility] [place] [address] Radio [facility] [address] [place] [address] Referral ID Status Reason Start Date Expiration Date Visits Re quested Visits Authorized [id number] Closed 08/25/2023 08/25/2023 1 1 [facility] for visit Narrative* Diagnostic Procedure Only (Routine) - Closed Specialty Diagnoses / Procedures Referred By Contac t Referred To Contact XR IMAGING Diagnoses Neck pain Procedures XR CERV OTHER 4V AP/LAT/OBL RADEX SPINE CERVICAL 4 OR 5 VIEWS Zeny Lam, DIRECTOR OF INCOME TAX.COMPUTER TECHNOLOGY TRAINER [address] [place] [address] [place] [address] Referral ID Status Reason Start Date Expiration Date V isits Requested Visits Authorized [id number] Closed Auto-Generate d Referral 02/01/2024 03/02/2025 1 1 [facility] for visit Narrative* Diagnostic Procedure Only (Routine) - Closed Specialty Diagnoses / Procedures Referred By Contac t Referred To Contact [facility] Diagnoses Shortness of breath Procedures NM CARDIAC PERF STRESS/PHARM MYOCARDIAL SPECT MULTIPLE STUDIES Teri Gruber, DIRECTOR OF INCOME TAX.COMPUTER TECHNOLOGY TRAINER [address] [place] [address] Phone: tel: fax: [facility] [address] [place], [place] [id number] Phone: tel: Referral ID Status Reason Start Date Expiration Date V isits Requested Visits Authorized [id number] Closed Auto-Generate d Referral 05/17/2024 06/16/2025 1 1 [facility] for visit Narrative* Consult, Test, [...] W/ESTIM EACH ADDL 15 MIN Zeny Lam, DIRECTOR OF INCOME TAX.COMPUTER TECHNOLOGY TRAINER [address] [place] [address] Phone: tel: fax: [facility] [place] [address] [place] [address] Referral ID Status Reason Start Date Expiration Date Visits Requested Visits Authorized [id number] Authorized PCP Requested Referral Patient Cleared Patient agrees to sign AFR (ERIC Anders or PAN ROBBINS) 06/04/2024 04/05/2025 12 12 [facility] Advance Directives Documents on File Type Date Recorded Patient Seam Press Operator Expl anation Advance Directive(s) 03/13/2021 11:31 AM Advance Directive(s) 05/10/2020 7:33 AM Advance Directive(s) 05/01/2020 2:41 PM Advance Directive(s) 06/06/2019 5:02 PM Advance Directive(s) 05/17/2019 11:49 AM Advance Directive(s) 01/14/2016 7:29 AM Documents on File Type Date Recorded Patient Seam Press Operator Expl anation Advance Directive(s) 03/13/2021 11:31 AM Advance Directive(s) 05/10/2020 7:33 AM Advance Directive(s) 05/01/2020 2:41 PM Advance Directive(s) 06/06/2019 5:02 PM Advance Directive(s) 05/17/2019 11:49 AM Advance Directive(s) 01/14/2016 7:29 AM Advance Directive Response Recorded Date/ Time Advance Directives No May 08, 2014 12:48pm Living Will Yes September 28, 2021 1:39pm Power of Wool Fleece Grader Yes September 28 1:39pm Name of Medical Power of Wool Fleece Grader Twyla Freire September 28, 2021 1:39pm Documents on File Type Date Recorded Patient Seam Press Operator Expl anation Advance Directive(s) 03/13/2021 11:31 AM Advance Directive Response Recorded Date/ Time Advance Directives No May 08, 2014 11:48am Living Will Yes March 20 1:43pm Power of Wool Fleece Grader Yes March 20, 2022 1:43pm Name of Medical Power of Wool Fleece Grader LARISSA FREIRE March 20, 2022 1:43pm Documents on File Type Date Recorded Patient Seam Press Operator Expl anation Advance Directive(s) 03/13/2021 11:31 AM Advance Directive Response Recorded Date/ Time Do you have a Healthcare Power of Wool Fleece Grader? Yes November 19, 2024 7:12pm Advance Directives No May 08, 2014 12:48pm Health Concerns Infection Onset Date Last Indicated Resolved Time COVID-19 Rule-Out 06/28/2021 07/03/2021 Reason for Referral Specialty Diagnoses / Procedures Referred By Contac t Referred To Contact Diagnoses Insomnia, unspecified type Franc Hills MD [address] [place], [place] [id number] Referral ID Status Reason Start Date Expiration Date V isits Requested Visits Authorized [id number] Pending Review 1 1 Specialty Diagnoses / Procedures Referred By Contac t Referred To Contact Diagnoses Chronic low back pain without sciatica, unspecified back pain laterality Spinal stenosis of lumbar region, unspecified whether neurogenic claudication present Procedures CONSULT TO SPINE SURGERY OFFICE/OUTPATIENT [facility] 60-74 MINUTES Franc Hills MD [address] [place] [address] Referral ID Status Reason Start Date Expiration Date Visits Requested Visits Authorized [id number] Pending Review PCP Requested Referral 09/24/2022 09/24/2023 1 1 Specialty Diagnoses / Procedures Referred By Contac t Referred To Contact Diagnoses Chronic low back pain without sciatica, unspecified back pain laterality Franc Hills MD [address] [place] [address] Referral ID Status Reason Start Date Expiration Date V isits Requested Visits Authorized [id number] Pending Review 1 1 Referral ID Status Reason Start Date Expiration Date Visits Re quested Visits Authorized [id number] Closed 1 1 Specialty Diagnoses / Procedures Referred By Contac t Referred To Contact General Surgery Diagnoses Acute gastritis without hemorrhage, unspecified gastritis type Procedures CONSULT TO GENERAL SURGERY OFFICE/OUTPATIENT [facility] 60-74 MINUTES Zeny Lam APRN.COMPUTER TECHNOLOGY TRAINER [address] [place] [address] Referral ID Status Reason Start Date Expiration Date Visits Requested Visits Authorized [id number] Pending Review PCP Requested Referral 3 02/23/2024 1 1 Specialty Diagnoses / Procedures Referred By Contac t Referred To Contact Diagnoses Chronic low back pain without sciatica, unspecified back pain laterality Zney Lam APRN.COMPUTER TECHNOLOGY TRAINER [address] [place], [place] [id number] Referral ID Status Reason Start Date Expiration Date Visits Re quested Visits Authorized [id number] Closed 1 1 Specialty Diagnoses / Procedures Referred By Contac t Referred To Contact MR IMAGING Diagnoses Lumbar pain Acute bilateral low back pain without sciatica Fall, subsequent encounter Procedures MRI LUMBAR SPINE WO IVCON MRI SPINAL CANAL LUMBAR W/O CONTRAST MATERIAL Zeny Lam APRN.COMPUTER TECHNOLOGY TRAINER [address] [place] [address] [place] [address] Referral ID Status Reason Start Date Expiration Date Visits Requested Visits Authorized [id number] Pending Review Auto-Generat ed Referral 05/18/2023 06/16/2024 1 1 Referral ID Status Reason Start Date Expiration Date Visits Re quested Visits Authorized [id number] Closed 1 1 Referral ID Status Reason Start Date Expiration Date V isits Requested Visits Authorized [id number] Closed Auto-Generate d Referral 05/29/2023 09/04/2023 1 1 Specialty Diagnoses / Procedures Referred By Contac t Referred To Contact [facility] [place] Diagnoses Compression fracture of L1 vertebra with routine healing, subsequent encounter Procedures CONSULT TO [facility] OFFICE/OUTPATIENT [facility] MDM 60 MINUTES Zeny Lam APRN.COMPUTER TECHNOLOGY TRAINER [address] [place] [address] Referral ID Status Reason Start Date Expiration Date Visits Requested Visits Authorized [id number] Authorized PCP Requested Referral 05/29/2023 05/28/2024 1 1 Referral ID Status Reason Start Date Expiration Date Visits Re quested Visits Authorized [id number] Closed 1 1 Specialty Diagnoses / Procedures Referred By Contac t Referred To Contact [facility] Diagnoses Chronic low back pain without sciatica, unspecified back pain laterality Compression fracture of L1 vertebra with routine healing, subsequent encounter Sciatic leg pain Procedures CONSULT TO PHYSICAL THERAPY PHYSICAL THERAPY EVALUATION [facility] COMPLEX 45 MINS Zeny Lam APRN.COMPUTER TECHNOLOGY TRAINER [address] [place] [address] [facility] [place] [address] [place] [address] Referral ID Status Reason Start Date Expiration Date Visits Requested Visits Authorized [id number] Pending Review Auto-Generat ed Referral 06/15/2023 06/14/2024 1 1 Referral ID Status Reason Start Date Expiration Date Visits Re quested Visits Authorized [id number] Closed 1 1 Specialty Diagnoses / Procedures Referred By Contac t Referred To Contact Diagnoses Chronic low back pain without sciatica, unspecified back pain laterality Compression fracture of L1 vertebra with routine healing, subsequent encounter Zeny Lam APRN.COMPUTER TECHNOLOGY TRAINER [address] [place] [address] Referral ID Status Reason Start Date Expiration Date Visits Re quested Visits Authorized [id number] Closed 1 1 Specialty Diagnoses / Procedures Referred By Contac t Referred To Contact [facility] Diagnoses Acute bilateral low back pain with bilateral sciatica Compression fracture of L1 vertebra with routine healing, subsequent encounter Chronic low back pain without sciatica, unspecified back pain laterality Procedures CONSULT TO PHYSICAL THERAPY PHYSICAL THERAPY EV[facility]UATION [facility] 45 MINS Zeny Lam APRN.COMPUTER TECHNOLOGY TRAINER [address] [place] [id number] [facility] [address] [place] [address] Referral ID Status Reason Start Date Expiration Date Visits Requested Visits Authorized [id number] Pending Review Auto-Generat ed Referral 06/29/2023 06/28/2024 1 1 Specialty Diagnoses / Procedures Referred By Contac t Referred To Contact Diagnoses Acute bilateral low back pain with bilateral sciatica Compression fracture of L1 vertebra with routine healing, subsequent encounter Chronic low back pain without sciatica, unspecified back pain laterality Procedures CONSULT TO [facility] NON-PHARMACOLOGIC PAIN MANAGEMENT OFFICE/OUTPATIENT [facility] 60 MINUTES Zeny Lam APRN.COMPUTER TECHNOLOGY TRAINER [address] [place] [address] Referral ID Status Reason Start Date Expiration Date Visits Requested Visits Authorized [id number] Authorized PCP Requested Referral 06/29/2023 06/28/2024 1 1 Specialty Diagnoses / Procedures Referred By Contac t Referred To Contact [facility] Diagnoses Acute bilateral low back pain with bilateral sciatica Compression fracture of L1 vertebra with routine healing, subsequent encounter Chronic low back pain without sciatica, unspecified back pain laterality Procedures CONSULT TO [facility] OFFICE/OUTPATIENT [facility] 60 MINUTES Zeny Lam APRN.COMPUTER TECHNOLOGY TRAINER [address] [place] [address] Referral ID Status Reason Start Date Expiration Date Visits Requested Visits Authorized [id number] Authorized PCP Requested Referral 06/29/2023 06/28/2024 1 1 Specialty Diagnoses / Procedures Referred By Contac t Referred To Contact Diagnoses Acute bilateral low back pain with bilateral sciatica Compression fracture of L1 vertebra with routine healing, subsequent encounter Chronic low back pain without sciatica, unspecified back pain laterality Zeny Lam APRN.COMPUTER TECHNOLOGY TRAINER [address] [place], [place] [id number] Referral ID Status Reason Start Date Expiration Date Visits Re quested Visits Authorized [id number] Closed 1 1 Referral ID Status Reason Start Date Expiration Date Visits Re quested Visits Authorized [id number] Closed 1 1 Specialty Diagnoses / Procedures Referred By Contac t Referred To Contact Diagnoses Acute bilateral low back pain with bilateral sciatica Compression fracture of L1 vertebra with routine healing, subsequent encounter Chronic low back pain without sciatica, unspecified back pain laterality Franc Hills MD [address] [place] [id number] Referral ID Status Reason Start Date Expiration Date Visits Re quested Visits Authorized [id number] Closed 1 1 Specialty Diagnoses / Procedures Referred By Contac t Referred To Contact Urology Diagnoses BPH with obstruction/lower urinary tract symptoms Procedures CONSULT TO UROLOGY OFFICE/OUTPATIENT [facility] 60 MINUTES Franc Hills MD [address] [place] [id number] Referral ID Status Reason Start Date Expiration Date Visits Requested Visits Authorized [id number] Authorized PCP Requested Referral 07/18/2023 07/17/2024 1 1 Referral ID Status Reason Start Date Expiration Date Visits Re quested Visits Authorized [id number] Closed 1 1 Referral ID Status Reason Start Date Expiration Date Visits Re quested Visits Authorized [id number] Closed 1 1 Referral ID Status Reason Start Date Expiration Date Visits Re quested Visits Authorized [id number] Closed 1 1 Referral ID Status Reason Start Date Expiration Date Visits Re quested Visits Authorized [id number] Closed 1 1 Specialty Diagnoses / Procedures Referred By Contac t Referred To Contact [facility] Diagnoses Compression fracture of L1 vertebra with routine healing, subsequent encounter Chronic low back pain without sciatica, unspecified back pain laterality Procedures CONSULT TO PHYSICAL THERAPY PHYSICAL THERAPY EVALUATION [facility] 45 MINS Irene Moraes MD [address] [place] [address] [facility] [address] [place] [address] Referral ID Status Reason Start Date Expiration Date Visits Requested Visits Authorized [id number] Pending Review Auto-Generat ed Referral 08/27/2023 08/26/2024 [...] 15 MIN W/RE-INSJ Irene Moraes MD [address] [place] [address] Referral ID Status Reason Start Date Expiration Date Visits Requested Visits Authorized [id number] Pending Review PCP Requested Referral 08/27/2023 11/25/2023 1 1 Specialty Diagnoses / Procedures Referred By Contac t Referred To Contact Diagnoses Pain, dental Compression fracture of L1 vertebra with routine healing, subsequent encounter Chronic low back pain without sciatica, unspecified back pain laterality Zeny Lam APRN.COMPUTER TECHNOLOGY TRAINER [address] [place] [address] Referral ID Status Reason Start Date Expiration Date Visits Re quested Visits Authorized [id number] Closed 1 1 Specialty Diagnoses / Procedures Referred By Contac t Referred To Contact Diagnoses Chronic low back pain without sciatica, unspecified back pain laterality Neck pain Zeny Lam APRN.COMPUTER TECHNOLOGY TRAINER [address] [place] [address] Referral ID Status Reason Start Date Expiration Date Visits Re quested Visits Authorized [id number] Closed 1 1 Specialty Diagnoses / Procedures Referred By Contac t Referred To Contact CT [facility] Diagnoses Primary hypertension Dizziness Procedures CT BRAIN WO IVCON CT HEAD/BRAIN W/O CONTRAST MATERIAL Zeny Lam APRN.COMPUTER TECHNOLOGY TRAINER [address] [place] [address] [place] [address] Referral ID Status Reason Start Date Expiration Date Visits Requested Visits Authorized [id number] Authorized Auto-Generat ed Referral 03/16/2025 1 1 Referral ID Status Reason Start Date Expiration Date V isits Requested Visits Authorized [id number] Closed Auto-Generate d Referral 02/15/2024 03/16/2025 1 [...] any alcohol or drug abuse patient.[facility] the event this information is protected by the Federal Confidentiality of Alcohol and Drug Abuse Patient Records regulations: The Federal rules restrict any use of the information to criminally investigate or prosecute any alcohol or drug abuse patient.[facility]bleIn the event this information is protected by the Federal Confidentiality of Alcohol and Drug Abuse Patient Records regulations: The Federal rules restrict any use of the information to criminally investigate or prosecute any alcohol or drug abuse patient.[facility]bleIn the event this information is protected by the Federal Confidentiality of Alcohol and Drug Abuse Patient Records regulations: The Federal rules restrict any use of the information to criminally investigate or prosecute any alcohol or drug abuse patient.[facility]In the event this information is protected by the Federal Confidentiality of Alcohol and Drug Abuse Patient Records regulations: The Federal rules restrict any use of the information to criminally investigate or prosecute any alcohol or drug abuse patient.[facility]bleIn the event this information is protected by the Federal Confidentiality of Alcohol and Drug Abuse Patient Records regulations: The Federal rules restrict any use of the information to criminally investigate or prosecute any alcohol or drug abuse patient.[facility]bleIn the event this information is protected by the Federal Confidentiality of Alcohol and Drug Abuse Patient Records regulations: The Federal rules restrict any use of the information to criminally investigate or prosecute any alcohol or drug abuse patient.[facility]bleIn the event this information is protected by the Federal Confidentiality of Alcohol and Drug Abuse Patient Records regulations: The Federal rules restrict any use of the information to criminally investigate or prosecute any alcohol or drug abuse patient.[facility]In the event this information is protected by the Federal Confidentiality of Alcohol and Drug Abuse Patient Records regulations: The Federal rules restrict any use of the information to criminally investigate or prosecute any alcohol or drug abuse patient.[facility]In the event this information is protected by the Federal Confidentiality of Alcohol and Drug Abuse Patient Records regulations: The Federal rules restrict any use of the information to criminally investigate or prosecute any alcohol or drug abuse patient.[facility]In the event this information is protected by the Federal Confidentiality of Alcohol and Drug Abuse Patient Records regulations: The Federal rules restrict any use of the information to criminally investigate or prosecute any alcohol or drug abuse patient.[facility]bleIn the event this information is protected by the Federal Confidentiality of Alcohol and Drug Abuse Patient Records regulations: The Federal rules restrict any use of the information to criminally investigate or prosecute any alcohol or drug abuse patient.[facility]bleIn the event this information is protected by the Federal Confidentiality of Alcohol and Drug Abuse Patient Records regulations: The Federal rules restrict any use of the information to criminally investigate or prosecute any alcohol or drug abuse patient.[facility]In the event this information is protected by the Federal Confidentiality of Alcohol and Drug Abuse Patient Records regulations: The Federal rules restrict any use of the information to criminally investigate or prosecute any alcohol or drug abuse patient.[facility]In the event this information is protected by the Federal Confidentiality of Alcohol and Drug Abuse Patient Records regulations: The Federal rules restrict any use of the information to criminally investigate or prosecute any alcohol or drug abuse patient.[facility]bleIn the event this information is protected by the Federal Confidentiality of Alcohol and Drug Abuse Patient Records regulations: The Federal rules restrict any use of the information to criminally investigate or prosecute any alcohol or drug abuse patient.[facility]bleIn the event this information is protected by the Federal Confidentiality of Alcohol and Drug Abuse Patient Records regulations: The Federal rules restrict any use of the information to criminally investigate or prosecute any alcohol or drug abuse patient.[facility]bleIn the event this information is protected by the Federal Confidentiality of Alcohol and Drug Abuse Patient Records regulations: The Federal rules restrict any use of the information to criminally investigate or prosecute any alcohol or drug abuse patient.[facility]In the event this information is protected by the Federal Confidentiality of Alcohol and Drug Abuse Patient Records regulations: The Federal rules restrict any use of the information to criminally investigate or prosecute any alcohol or drug abuse patient.[facility]bleIn the event this information is protected by the Federal Confidentiality of Alcohol and Drug Abuse Patient Records regulations: The Federal rules restrict any use of the information to criminally investigate or prosecute any alcohol or drug abuse patient.[facility]In the event this information is protected by the Federal Confidentiality of Alcohol and Drug Abuse Patient Records regulations: The Federal rules restrict any use of the information to criminally investigate or prosecute any alcohol or drug abuse patient.[facility]In the event this information is protected by the Federal Confidentiality of Alcohol and Drug Abuse Patient Records regulations: The Federal rules restrict any use of the information to criminally investigate or prosecute any alcohol or drug abuse patient.[facility]In the event this information is protected by the Federal Confidentiality of Alcohol and Drug Abuse Patient Records regulations: The Federal rules restrict any use of the information to criminally investigate or prosecute any alcohol or drug abuse patient.[facility]In the event this information is protected by the Federal Confidentiality of Alcohol and Drug Abuse Patient Records regulations: The Federal rules restrict any use of the information to criminally investigate or prosecute any alcohol or drug abuse patient.[facility]In the event this information is protected by the Federal Confidentiality of Alcohol and Drug Abuse Patient Records regulations: The Federal rules restrict any use of the information to criminally investigate or prosecute any alcohol or drug abuse patient.[facility]In the event this information is protected by the Federal Confidentiality of Alcohol and Drug Abuse Patient Records regulations: The Federal rules restrict any use of the information to criminally investigate or prosecute any alcohol or drug abuse patient.[facility]In the event this information is protected by the Federal Confidentiality of Alcohol and Drug Abuse Patient Records regulations: The Federal rules restrict any use of the information to criminally investigate or prosecute any alcohol or drug abuse patient.[facility]bleIn the event this information is protected by the Federal Confidentiality of Alcohol and Drug Abuse Patient Records regulations: The Federal rules restrict any use of the information to criminally investigate or prosecute any alcohol or drug abuse patient.[facility]In the event this information is protected by the Federal Confidentiality of Alcohol and Drug Abuse Patient Records regulations: The Federal rules restrict any use of the information to criminally investigate or prosecute any alcohol or drug abuse patient.[facility]In the event this information is protected by the Federal Confidentiality of Alcohol and Drug Abuse Patient Records regulations: The Federal rules restrict any use of the information to criminally investigate or prosecute any alcohol or drug abuse patient.[facility]In the event this information is protected by the Federal Confidentiality of Alcohol and Drug Abuse Patient Records regulations: The Federal rules restrict any use of the information to criminally investigate or prosecute any alcohol or drug abuse patient.[facility]In the event this information is protected by the Federal Confidentiality of Alcohol and Drug Abuse Patient Records regulations: The Federal rules restrict any use of the information to criminally investigate or prosecute any alcohol or drug abuse patient.[facility]bleIn the event this information is protected by the Federal Confidentiality of Alcohol and Drug Abuse Patient Records regulations: The Federal rules restrict any use of the information to criminally investigate or prosecute any alcohol or drug abuse patient.[facility]In the event this information is protected by the Federal Confidentiality of Alcohol and Drug Abuse Patient Records regulations: The Federal rules restrict any use of the information to criminally investigate or prosecute any alcohol or drug abuse patient.[facility]In the event this information is protected by the Federal Confidentiality of Alcohol and Drug Abuse Patient Records regulations: The Federal rules restrict any use of the information to criminally investigate or prosecute any alcohol or drug abuse patient.[facility]In the event this information is protected by the Federal Confidentiality of Alcohol and Drug Abuse Patient Records regulations: The Federal rules restrict any use of the information to criminally investigate or prosecute any alcohol or drug abuse patient.[facility]In the event this information is protected by the Federal Confidentiality of Alcohol and Drug Abuse Patient Records regulations: The Federal rules restrict any use of the information to criminally investigate or prosecute any alcohol or drug abuse patient.[facility]In the event this information is protected by the Federal Confidentiality of Alcohol and Drug Abuse Patient Records regulations: The Federal rules restrict any use of the information to criminally investigate or prosecute any alcohol or drug abuse patient.[facility]In the event this information is protected by the Federal Confidentiality of Alcohol and Drug Abuse Patient Records regulations: The Federal rules restrict any use of the information to criminally investigate or prosecute any alcohol or drug abuse patient.[facility]In the event this information is protected by the Federal Confidentiality of Alcohol and Drug Abuse Patient Records regulations: The Federal rules restrict any use of the information to criminally investigate or prosecute any alcohol or drug abuse patient.[facility]In the event this information is protected by the Federal Confidentiality of Alcohol and Drug Abuse Patient Records regulations: The Federal rules restrict any use of the information to criminally investigate or prosecute any alcohol or drug abuse patient.[facility]In the event this information is protected by the Federal Confidentiality of Alcohol and Drug Abuse Patient Records regulations: The Federal rules restrict any use of the information to criminally investigate or prosecute any alcohol or drug abuse patient.[facility]In the event this information is protected by the Federal Confidentiality of Alcohol and Drug Abuse Patient Records regulations: The Federal rules restrict any use of the information to criminally investigate or prosecute any alcohol or drug abuse patient.[facility]In the event this information is protected by the Federal Confidentiality of Alcohol and Drug Abuse Patient Records regulations: The Federal rules restrict any use of the information to criminally investigate or prosecute any alcohol or drug abuse patient.[facility]In the event this information is protected by the Federal Confidentiality of Alcohol and Drug Abuse Patient Records regulations: The Federal rules restrict any use of the information to criminally investigate or prosecute any alcohol or drug abuse patient.[facility]In the event this information is protected by the Federal Confidentiality of Alcohol and Drug Abuse Patient Records regulations: The Federal rules restrict any use of the information to criminally investigate or prosecute any alcohol or drug abuse patient.[facility]In the event this information is protected by the Federal Confidentiality of Alcohol and Drug Abuse Patient Records regulations: The Federal rules restrict any use of the information to criminally investigate or prosecute any alcohol or drug abuse patient.[facility]In the event this information is protected by the Federal Confidentiality of Alcohol and Drug Abuse Patient Records regulations: The Federal rules restrict any use of the information to criminally investigate or prosecute any alcohol or drug abuse patient.[facility]In the event this information is protected by the Federal Confidentiality of Alcohol and Drug Abuse Patient Records regulations: The Federal rules restrict any use of the information to criminally investigate or prosecute any alcohol or drug abuse patient.[facility]In the event this information is protected by the Federal Confidentiality of Alcohol and Drug Abuse Patient Records regulations: The Federal rules restrict any use of the information to criminally investigate or prosecute any alcohol or drug abuse patient.[facility]In the event this information is protected by the Federal Confidentiality of Alcohol and Drug Abuse Patient Records regulations: The Federal rules restrict any use of the information to criminally investigate or prosecute any alcohol or drug abuse patient.[facility]In the event this information is protected by the Federal Confidentiality of Alcohol and Drug Abuse Patient Records regulations: The Federal rules restrict any use of the information to criminally investigate or prosecute any alcohol or drug abuse patient.[facility]In the event this information is protected by the Federal Confidentiality of Alcohol and Drug Abuse Patient Records regulations: The Federal rules restrict any use of the information to criminally investigate or prosecute any alcohol or drug abuse patient.[facility]In the event this information is protected by the Federal Confidentiality of Alcohol and Drug Abuse Patient Records regulations: The Federal rules restrict any use of the information to criminally investigate or prosecute any alcohol or drug abuse patient.[facility]In the event this information is protected by the Federal Confidentiality of Alcohol and Drug Abuse Patient Records regulations: The Federal rules restrict any use of the information to criminally investigate or prosecute any alcohol or drug abuse patient.[facility]In the event this information is protected by the Federal Confidentiality of Alcohol and Drug Abuse Patient Records regulations: The Federal rules restrict any use of the information to criminally investigate or prosecute any alcohol or drug abuse patient.[facility]In the event this information is protected by the Federal Confidentiality of Alcohol and Drug Abuse Patient Records regulations: The Federal rules restrict any use of the information to criminally investigate or prosecute any alcohol or drug abuse patient.[facility]In the event this information is protected by the Federal Confidentiality of Alcohol and Drug Abuse Patient Records regulations: The Federal rules restrict any use of the information to criminally investigate or prosecute any alcohol or drug abuse patient.[facility]In the event this information is protected by the Federal Confidentiality of Alcohol and Drug Abuse Patient Records regulations: The Federal rules restrict any use of the information to criminally investigate or prosecute any alcohol or drug abuse patient.[facility]In the event this information is protected by the Federal Confidentiality of Alcohol and Drug Abuse Patient Records regulations: The Federal rules restrict any use of the information to criminally investigate or prosecute any alcohol or drug abuse patient.[facility]In the event this information is protected by the Federal Confidentiality of Alcohol and Drug Abuse Patient Records regulations: The Federal rules restrict any use of the information to criminally investigate or prosecute any alcohol or drug abuse patient.[facility]In the event this information is protected by the Federal Confidentiality of Alcohol and Drug Abuse Patient Records regulations: The Federal rules restrict any use of the information to criminally investigate or prosecute any alcohol or drug abuse patient.[facility]bleIn the event this information is protected by the Federal Confidentiality of Alcohol and Drug Abuse Patient Records regulations: The Federal rules restrict any use of the information to criminally investigate or prosecute any alcohol or drug abuse patient.[facility]In the event this information is protected by the Federal Confidentiality of Alcohol and Drug Abuse Patient Records regulations: The Federal rules restrict any use of the information to criminally investigate or prosecute any alcohol or drug abuse patient.[facility]bleIn the event this information is protected by the Federal Confidentiality of Alcohol and Drug Abuse Patient Records regulations: The Federal rules restrict any use of the information to criminally investigate or prosecute any alcohol or drug abuse patient.[facility]bleIn the event this information is protected by the Federal Confidentiality of Alcohol and Drug Abuse Patient Records regulations: The Federal rules restrict any use of the information to criminally investigate or prosecute any alcohol or drug abuse patient.[facility]bleIn the event this information is protected by the Federal Confidentiality of Alcohol and Drug Abuse Patient Records regulations: The Federal rules restrict any use of the information to criminally investigate or prosecute any alcohol or drug abuse patient.[facility]bleIn the event this information is protected by the Federal Confidentiality of Alcohol and Drug Abuse Patient Records regulations: The Federal rules restrict any use of the information to criminally investigate or prosecute any alcohol or drug abuse patient.[facility]bleIn the event this information is protected by the Federal Confidentiality of Alcohol and Drug Abuse Patient Records regulations: The Federal rules restrict any use of the information to criminally investigate or prosecute any alcohol or drug abuse patient.[facility]bleIn the event this information is protected by the Federal Confidentiality of Alcohol and Drug Abuse Patient Records regulations: The Federal rules restrict any use of the information to criminally investigate or prosecute any alcohol or drug abuse patient.[facility]bleIn the event this information is protected by the Federal Confidentiality of Alcohol and Drug Abuse Patient Records regulations: The Federal rules restrict any use of the information to criminally investigate or prosecute any alcohol or drug abuse patient.[facility]In the event this information is protected by the Federal Confidentiality of Alcohol and Drug Abuse Patient Records regulations: The Federal rules restrict any use of the information to criminally investigate or prosecute any alcohol or drug abuse patient.[facility]In the event this information is protected by the Federal Confidentiality of Alcohol and Drug Abuse Patient Records regulations: The Federal rules restrict any use of the information to criminally investigate or prosecute any alcohol or drug abuse patient.[facility]bleIn the event this information is protected by the Federal Confidentiality of Alcohol and Drug Abuse Patient Records regulations: The Federal rules restrict any use of the information to criminally investigate or prosecute any alcohol or drug abuse patient.[facility]bleIn the event this information is protected by the Federal Confidentiality of Alcohol and Drug Abuse Patient Records regulations: The Federal rules restrict any use of the information to criminally investigate or prosecute any alcohol or drug abuse patient.[facility]bleIn the event this information is protected by the Federal Confidentiality of Alcohol and Drug Abuse Patient Records regulations: The Federal rules restrict any use of the information to criminally investigate or prosecute any alcohol or drug abuse patient.[facility]In the event this information is protected by the Federal Confidentiality of Alcohol and Drug Abuse Patient Records regulations: The Federal rules restrict any use of the information to criminally investigate or prosecute any alcohol or drug abuse patient.[facility]bleIn the event this information is protected by the Federal Confidentiality of Alcohol and Drug Abuse Patient Records regulations: The Federal rules restrict any use of the information to criminally investigate or prosecute any alcohol or drug abuse patient.[facility]bleIn the event this information is protected by the Federal Confidentiality of Alcohol and Drug Abuse Patient Records regulations: The Federal rules restrict any use of the information to criminally investigate or prosecute any alcohol or drug abuse patient.[facility]bleIn the event this information is protected by the Federal Confidentiality of Alcohol and Drug Abuse Patient Records regulations: The Federal rules restrict any use of the information to criminally investigate or prosecute any alcohol or drug abuse patient.[facility]In the event this information is protected by the Federal Confidentiality of Alcohol and Drug Abuse Patient Records regulations: The Federal rules restrict any use of the information to criminally investigate or prosecute any alcohol or drug abuse patient.[facility]bleIn the event this information is protected by the Federal Confidentiality of Alcohol and Drug Abuse Patient Records regulations: The Federal rules restrict any use of the information to criminally investigate or prosecute any alcohol or drug abuse patient.[facility]In the event this information is protected by the Federal Confidentiality of Alcohol and Drug Abuse Patient Records regulations: The Federal rules restrict any use of the information to criminally investigate or prosecute any alcohol or drug abuse patient.[facility]In the event this information is protected by the Federal Confidentiality of Alcohol and Drug Abuse Patient Records regulations: The Federal rules restrict any use of the information to criminally investigate or prosecute any alcohol or drug abuse patient.[facility]In the event this information is protected by the Federal Confidentiality of Alcohol and Drug Abuse Patient Records regulations: The Federal rules restrict any use of the information to criminally investigate or prosecute any alcohol or drug abuse patient.[facility]In the event this information is protected by the Federal Confidentiality of Alcohol and Drug Abuse Patient Records regulations: The Federal rules restrict any use of the information to criminally investigate or prosecute any alcohol or drug abuse patient.[facility]In the event this information is protected by the Federal Confidentiality of Alcohol and Drug Abuse Patient Records regulations: The Federal rules restrict any use of the information to criminally investigate or prosecute any alcohol or drug abuse patient.[facility]In the event this information is protected by the Federal Confidentiality of Alcohol and Drug Abuse Patient Records regulations: The Federal rules restrict any use of the information to criminally investigate or prosecute any alcohol or drug abuse patient.[facility]In the event this information is protected by the Federal Confidentiality of Alcohol and Drug Abuse Patient Records regulations: The Federal rules restrict any use of the information to criminally investigate or prosecute any alcohol or drug abuse patient.[facility]In the event this information is protected by the Federal Confidentiality of Alcohol and Drug Abuse Patient Records regulations: The Federal rules restrict any use of the information to criminally investigate or prosecute any alcohol or drug abuse patient.[facility]In the event this information is protected by the Federal Confidentiality of Alcohol and Drug Abuse Patient Records regulations: The Federal rules restrict any use of the information to criminally investigate or prosecute any alcohol or drug abuse patient.[facility]In the event this information is protected by the Federal Confidentiality of Alcohol and Drug Abuse Patient Records regulations: The Federal rules restrict any use of the information to criminally investigate or prosecute any alcohol or drug abuse patient.[facility]In the event this information is protected by the Federal Confidentiality of Alcohol and Drug Abuse Patient Records regulations: The Federal rules restrict any use of the information to criminally investigate or prosecute any alcohol or drug abuse patient.[facility]In the event this information is protected by the Federal Confidentiality of Alcohol and Drug Abuse Patient Records regulations: The Federal rules restrict any use of the information to criminally investigate or prosecute any alcohol or drug abuse patient.[facility]bleIn the event this information is protected by the Federal Confidentiality of Alcohol and Drug Abuse Patient Records regulations: The Federal rules restrict any use of the information to criminally investigate or prosecute any alcohol or drug abuse patient.[facility]In the event this information is protected by the Federal Confidentiality of Alcohol and Drug Abuse Patient Records regulations: The Federal rules restrict any use of the information to criminally investigate or prosecute any alcohol or drug abuse patient.[facility]In the event this information is protected by the Federal Confidentiality of Alcohol and Drug Abuse Patient Records regulations: The Federal rules restrict any use of the information to criminally investigate or prosecute any alcohol or drug abuse patient.[facility]In the event this information is protected by the Federal Confidentiality of Alcohol and Drug Abuse Patient Records regulations: The Federal rules restrict any use of the information to criminally investigate or prosecute any alcohol or drug abuse patient.[facility]In the event this information is protected by the Federal Confidentiality of Alcohol and Drug Abuse Patient Records regulations: The Federal rules restrict any use of the information to criminally investigate or prosecute any alcohol or drug abuse patient.[facility]In the event this information is protected by the Federal Confidentiality of Alcohol and Drug Abuse Patient Records regulations: The Federal rules restrict any use of the information to criminally investigate or prosecute any alcohol or drug abuse patient.[facility]In the event this information is protected by the Federal Confidentiality of Alcohol and Drug Abuse Patient Records regulations: The Federal rules restrict any use of the information to criminally investigate or prosecute any alcohol or drug abuse patient.[facility]In the event this information is protected by the Federal Confidentiality of Alcohol and Drug Abuse Patient Records regulations: The Federal rules restrict any use of the information to criminally investigate or prosecute any alcohol or drug abuse patient.[facility]In the event this information is protected by the Federal Confidentiality of Alcohol and Drug Abuse Patient Records regulations: The Federal rules restrict any use of the information to criminally investigate or prosecute any alcohol or drug abuse patient.[facility]In the event this information is protected by the Federal Confidentiality of Alcohol and Drug Abuse Patient Records regulations: The Federal rules restrict any use of the information to criminally investigate or prosecute any alcohol or drug abuse patient.[facility]In the event this information is protected by the Federal Confidentiality of Alcohol and Drug Abuse Patient Records regulations: The Federal rules restrict any use of the information to criminally investigate or prosecute any alcohol or drug abuse patient.[facility]In the event this information is protected by the Federal Confidentiality of Alcohol and Drug Abuse Patient Records regulations: The Federal rules restrict any use of the information to criminally investigate or prosecute any alcohol or drug abuse patient.[facility]In the event this information is protected by the Federal Confidentiality of Alcohol and Drug Abuse Patient Records regulations: The Federal rules restrict any use of the information to criminally investigate or prosecute any alcohol or drug abuse patient.[facility]In the event this information is protected by the Federal Confidentiality of Alcohol and Drug Abuse Patient Records regulations: The Federal rules restrict any use of the information to criminally investigate or prosecute any alcohol or drug abuse patient.[facility]In the event this information is protected by the Federal Confidentiality of Alcohol and Drug Abuse Patient Records regulations: The Federal rules restrict any use of the information to criminally investigate or prosecute any alcohol or drug abuse patient.[facility]In the event this information is protected by the Federal Confidentiality of Alcohol and Drug Abuse Patient Records regulations: The Federal rules restrict any use of the information to criminally investigate or prosecute any alcohol or drug abuse patient.[facility]In the event this information is protected by the Federal Confidentiality of Alcohol and Drug Abuse Patient Records regulations: The Federal rules restrict any use of the information to criminally investigate or prosecute any alcohol or drug abuse patient.[facility]In the event this information is protected by the Federal Confidentiality of Alcohol and Drug Abuse Patient Records regulations: The Federal rules restrict any use of the information to criminally investigate or prosecute any alcohol or drug abuse patient.[facility]In the event this information is protected by the Federal Confidentiality of Alcohol and Drug Abuse Patient Records regulations: The Federal rules restrict any use of the information to criminally investigate or prosecute any alcohol or drug abuse patient.[facility]In the event this information is protected by the Federal Confidentiality of Alcohol and Drug Abuse Patient Records regulations: The Federal rules restrict any use of the information to criminally investigate or prosecute any alcohol or drug abuse patient.[facility]In the event this information is protected by the Federal Confidentiality of Alcohol and Drug Abuse Patient Records regulations: The Federal rules restrict any use of the information to criminally investigate or prosecute any alcohol or drug abuse patient.[facility]In the event this information is protected by the Federal Confidentiality of Alcohol and Drug Abuse Patient Records regulations: The Federal rules restrict any use of the information to criminally investigate or prosecute any alcohol or drug abuse patient.[facility]In the event this information is protected by the Federal Confidentiality of Alcohol and Drug Abuse Patient Records regulations: The Federal rules restrict any use of the information to criminally investigate or prosecute any alcohol or drug abuse patient.[facility]In the event this information is protected by the Federal Confidentiality of Alcohol and Drug Abuse Patient Records regulations: The Federal rules restrict any use of the information to criminally investigate or prosecute any alcohol or drug abuse patient.[facility]In the event this information is protected by the Federal Confidentiality of Alcohol and Drug Abuse Patient Records regulations: The Federal rules restrict any use of the information to criminally investigate or prosecute any alcohol or drug abuse patient.[facility]In the event this information is protected by the Federal Confidentiality of Alcohol and Drug Abuse Patient Records regulations: The Federal rules restrict any use of the information to criminally investigate or prosecute any alcohol or drug abuse patient.[facility]In the event this information is protected by the Federal Confidentiality of Alcohol and Drug Abuse Patient Records regulations: The Federal rules restrict any use of the information to criminally investigate or prosecute any alcohol or drug abuse patient.[facility]In the event this information is protected by the Federal Confidentiality of Alcohol and Drug Abuse Patient Records regulations: The Federal rules restrict any use of the information to criminally investigate or prosecute any alcohol or drug abuse patient.[facility]In the event this information is protected by the Federal Confidentiality of Alcohol and Drug Abuse Patient Records regulations: The Federal rules restrict any use of the information to criminally investigate or prosecute any alcohol or drug abuse patient.[facility]In the event this information is protected by the Federal Confidentiality of Alcohol and Drug Abuse Patient Records regulations: The Federal rules restrict any use of the information to criminally investigate or prosecute any alcohol or drug abuse patient.[facility]In the event this information is protected by the Federal Confidentiality of Alcohol and Drug Abuse Patient Records regulations: The Federal rules restrict any use of the information to criminally investigate or prosecute any alcohol or drug abuse patient.[facility]In the event this information is protected by the Federal Confidentiality of Alcohol and Drug Abuse Patient Records regulations: The Federal rules restrict any use of the information to criminally investigate or prosecute any alcohol or drug abuse patient.[facility]In the event this information is protected by the Federal Confidentiality of Alcohol and Drug Abuse Patient Records regulations: The Federal rules restrict any use of the information to criminally investigate or prosecute any alcohol or drug abuse patient.[facility]In the event this information is protected by the Federal Confidentiality of Alcohol and Drug Abuse Patient Records regulations: The Federal rules restrict any use of the information to criminally investigate or prosecute any alcohol or drug abuse patient.[facility]In the event this information is protected by the Federal Confidentiality of Alcohol and Drug Abuse Patient Records regulations: The Federal rules restrict any use of the information to criminally investigate or prosecute any alcohol or drug abuse patient.[facility]In the event this information is protected by the Federal Confidentiality of Alcohol and Drug Abuse Patient Records regulations: The Federal rules restrict any use of the information to criminally investigate or prosecute any alcohol or drug abuse patient.[facility]In the event this information is protected by the Federal Confidentiality of Alcohol and Drug Abuse Patient Records regulations: The Federal rules restrict any use of the information to criminally investigate or prosecute any alcohol or drug abuse patient.[facility]In the event this information is protected by the Federal Confidentiality of Alcohol and Drug Abuse Patient Records regulations: The Federal rules restrict any use of the information to criminally investigate or prosecute any alcohol or drug abuse patient.[facility]In the event this information is protected by the Federal Confidentiality of Alcohol and Drug Abuse Patient Records regulations: The Federal rules restrict any use of the information to criminally investigate or prosecute any alcohol or drug abuse patient.[facility]In the event this information is protected by the Federal Confidentiality of Alcohol and Drug Abuse Patient Records regulations: The Federal rules restrict any use of the information to criminally investigate or prosecute any alcohol or drug abuse patient.[facility]In the event this information is protected by the Federal Confidentiality of Alcohol and Drug Abuse Patient Records regulations: The Federal rules restrict any use of the information to criminally investigate or prosecute any alcohol or drug abuse patient.[facility]In the event this information is protected by the Federal Confidentiality of Alcohol and Drug Abuse Patient Records regulations: The Federal rules restrict any use of the information to criminally investigate or prosecute any alcohol or drug abuse patient.[facility]In the event this information is protected by the Federal Confidentiality of Alcohol and Drug Abuse Patient Records regulations: The Federal rules restrict any use of the information to criminally investigate or prosecute any alcohol or drug abuse patient.[facility]In the event this information is protected by the Federal Confidentiality of Alcohol and Drug Abuse Patient Records regulations: The Federal rules restrict any use of the information to criminally investigate or prosecute any alcohol or drug abuse patient.[facility]In the event this information is protected by the Federal Confidentiality of Alcohol and Drug Abuse Patient Records regulations: The Federal rules restrict any use of the information to criminally investigate or prosecute any alcohol or drug abuse patient.[facility]In the event this information is protected by the Federal Confidentiality of Alcohol and Drug Abuse Patient Records regulations: The Federal rules restrict any use of the information to criminally investigate or prosecute any alcohol or drug abuse patient.[facility]In the event this information is protected by the Federal Confidentiality of Alcohol and Drug Abuse Patient Records regulations: The Federal rules restrict any use of the information to criminally investigate or prosecute any alcohol or drug abuse patient.[facility]In the event this information is protected by the Federal Confidentiality of Alcohol and Drug Abuse Patient Records regulations: The Federal rules restrict any use of the information to criminally investigate or prosecute any alcohol or drug abuse patient.[facility]In the event this information is protected by the Federal Confidentiality of Alcohol and Drug Abuse Patient Records regulations: The Federal rules restrict any use of the information to criminally investigate or prosecute any alcohol or drug abuse patient.[facility]In the event this information is protected by the Federal Confidentiality of Alcohol and Drug Abuse Patient Records regulations: The Federal rules restrict any use of the information to criminally investigate or prosecute any alcohol or drug abuse patient.[facility]In the event this information is protected by the Federal Confidentiality of Alcohol and Drug Abuse Patient Records regulations: The Federal rules restrict any use of the information to criminally investigate or prosecute any alcohol or drug abuse patient.[facility]In the event this information is protected by the Federal Confidentiality of Alcohol and Drug Abuse Patient Records regulations: The Federal rules restrict any use of the information to criminally investigate or prosecute any alcohol or drug abuse patient.[facility]In the event this information is protected by the Federal Confidentiality of Alcohol and Drug Abuse Patient Records regulations: The Federal rules restrict any use of the information to criminally investigate or prosecute any alcohol or drug abuse patient.[facility]In the event this information is protected by the Federal Confidentiality of Alcohol and Drug Abuse Patient Records regulations: The Federal rules restrict any use of the information to criminally investigate or prosecute any alcohol or drug abuse patient.[facility]In the event this information is protected by the Federal Confidentiality of Alcohol and Drug Abuse Patient Records regulations: The Federal rules restrict any use of the information to criminally investigate or prosecute any alcohol or drug abuse patient.[facility]In the event this information is protected by the Federal Confidentiality of Alcohol and Drug Abuse Patient Records regulations: The Federal rules restrict any use of the information to criminally investigate or prosecute any alcohol or drug abuse patient.[facility]bleIn the event this information is protected by the Federal Confidentiality of Alcohol and Drug Abuse Patient Records regulations: The Federal rules restrict any use of the information to criminally investigate or prosecute any alcohol or drug abuse patient.[facility]bleIn the event this information is protected by the Federal Confidentiality of Alcohol and Drug Abuse Patient Records regulations: The Federal rules restrict any use of the information to criminally investigate or prosecute any alcohol or drug abuse patient.[facility]bleIn the event this information is protected by the Federal Confidentiality of Alcohol and Drug Abuse Patient Records regulations: The Federal rules restrict any use of the information to criminally investigate or prosecute any alcohol or drug abuse patient.[facility]bleIn the event this information is protected by the Federal Confidentiality of Alcohol and Drug Abuse Patient Records regulations: The Federal rules restrict any use of the information to criminally investigate or prosecute any alcohol or drug abuse patient.[facility]bleIn the event this information is protected by the Federal Confidentiality of Alcohol and Drug Abuse Patient Records regulations: The Federal rules restrict any use of the information to criminally investigate or prosecute any alcohol or drug abuse patient.[facility]bleIn the event this information is protected by the Federal Confidentiality of Alcohol and Drug Abuse Patient Records regulations: The Federal rules restrict any use of the information to criminally investigate or prosecute any alcohol or drug abuse patient.[facility]bleIn the event this information is protected by the Federal Confidentiality of Alcohol and Drug Abuse Patient Records regulations: The Federal rules restrict any use of the information to criminally investigate or prosecute any alcohol or drug abuse patient.[facility]In the event this information is protected by the Federal Confidentiality of Alcohol and Drug Abuse Patient Records regulations: The Federal rules restrict any use of the information to criminally investigate or prosecute any alcohol or drug abuse patient.[facility]In the event this information is protected by the Federal Confidentiality of Alcohol and Drug Abuse Patient Records regulations: The Federal rules restrict any use of the information to criminally investigate or prosecute any alcohol or drug abuse patient.[facility]bleIn the event this information is protected by the Federal Confidentiality of Alcohol and Drug Abuse Patient Records regulations: The Federal rules restrict any use of the information to criminally investigate or prosecute any alcohol or drug abuse patient.[facility]bleIn the event this information is protected by the Federal Confidentiality of Alcohol and Drug Abuse Patient Records regulations: The Federal rules restrict any use of the information to criminally investigate or prosecute any alcohol or drug abuse patient.[facility]bleIn the event this information is protected by the Federal Confidentiality of Alcohol and Drug Abuse Patient Records regulations: The Federal rules restrict any use of the information to criminally investigate or prosecute any alcohol or drug abuse patient.[facility]In the event this information is protected by the Federal Confidentiality of Alcohol and Drug Abuse Patient Records regulations: The Federal rules restrict any use of the information to criminally investigate or prosecute any alcohol or drug abuse patient.[facility]bleIn the event this information is protected by the Federal Confidentiality of Alcohol and Drug Abuse Patient Records regulations: The Federal rules restrict any use of the information to criminally investigate or prosecute any alcohol or drug abuse patient.[facility]bleIn the event this information is protected by the Federal Confidentiality of Alcohol and Drug Abuse Patient Records regulations: The Federal rules restrict any use of the information to criminally investigate or prosecute any alcohol or drug abuse patient.[facility]bleIn the event this information is protected by the Federal Confidentiality of Alcohol and Drug Abuse Patient Records regulations: The Federal rules restrict any use of the information to criminally investigate or prosecute any alcohol or drug abuse patient.[facility]In the event this information is protected by the Federal Confidentiality of Alcohol and Drug Abuse Patient Records regulations: The Federal rules restrict any use of the information to criminally investigate or prosecute any alcohol or drug abuse patient.[facility]bleIn the event this information is protected by the Federal Confidentiality of Alcohol and Drug Abuse Patient Records regulations: The Federal rules restrict any use of the information to criminally investigate or prosecute any alcohol or drug abuse patient.[facility]In the event this information is protected by the Federal Confidentiality of Alcohol and Drug Abuse Patient Records regulations: The Federal rules restrict any use of the information to criminally investigate or prosecute any alcohol or drug abuse patient.[facility]In the event this information is protected by the Federal Confidentiality of Alcohol and Drug Abuse Patient Records regulations: The Federal rules restrict any use of the information to criminally investigate or prosecute any alcohol or drug abuse patient.[facility]In the event this information is protected by the Federal Confidentiality of Alcohol and Drug Abuse Patient Records regulations: The Federal rules restrict any use of the information to criminally investigate or prosecute any alcohol or drug abuse patient.[facility]In the event this information is protected by the Federal Confidentiality of Alcohol and Drug Abuse Patient Records regulations: The Federal rules restrict any use of the information to criminally investigate or prosecute any alcohol or drug abuse patient.[facility]In the event this information is protected by the Federal Confidentiality of Alcohol and Drug Abuse Patient Records regulations: The Federal rules restrict any use of the information to criminally investigate or prosecute any alcohol or drug abuse patient.[facility]In the event this information is protected by the Federal Confidentiality of Alcohol and Drug Abuse Patient Records regulations: The Federal rules restrict any use of the information to criminally investigate or prosecute any alcohol or drug abuse patient.[facility]In the event this information is protected by the Federal Confidentiality of Alcohol and Drug Abuse Patient Records regulations: The Federal rules restrict any use of the information to criminally investigate or prosecute any alcohol or drug abuse patient.[facility]In the event this information is protected by the Federal Confidentiality of Alcohol and Drug Abuse Patient Records regulations: The Federal rules restrict any use of the information to criminally investigate or prosecute any alcohol or drug abuse patient.[facility]In the event this information is protected by the Federal Confidentiality of Alcohol and Drug Abuse Patient Records regulations: The Federal rules restrict any use of the information to criminally investigate or prosecute any alcohol or drug abuse patient.[facility]In the event this information is protected by the Federal Confidentiality of Alcohol and Drug Abuse Patient Records regulations: The Federal rules restrict any use of the information to criminally investigate or prosecute any alcohol or drug abuse patient.[facility]In the event this information is protected by the Federal Confidentiality of Alcohol and Drug Abuse Patient Records regulations: The Federal rules restrict any use of the information to criminally investigate or prosecute any alcohol or drug abuse patient.[facility]In the event this information is protected by the Federal Confidentiality of Alcohol and Drug Abuse Patient Records regulations: The Federal rules restrict any use of the information to criminally investigate or prosecute any alcohol or drug abuse patient.[facility]bleIn the event this information is protected by the Federal Confidentiality of Alcohol and Drug Abuse Patient Records regulations: The Federal rules restrict any use of the information to criminally investigate or prosecute any alcohol or drug abuse patient.[facility]In the event this information is protected by the Federal Confidentiality of Alcohol and Drug Abuse Patient Records regulations: The Federal rules restrict any use of the information to criminally investigate or prosecute any alcohol or drug abuse patient.[facility]In the event this information is protected by the Federal Confidentiality of Alcohol and Drug Abuse Patient Records regulations: The Federal rules restrict any use of the information to criminally investigate or prosecute any alcohol or drug abuse patient.[facility]In the event this information is protected by the Federal Confidentiality of Alcohol and Drug Abuse Patient Records regulations: The Federal rules restrict any use of the information to criminally investigate or prosecute any alcohol or drug abuse patient.[facility]In the event this information is protected by the Federal Confidentiality of Alcohol and Drug Abuse Patient Records regulations: The Federal rules restrict any use of the information to criminally investigate or prosecute any alcohol or drug abuse patient.[facility]In the event this information is protected by the Federal Confidentiality of Alcohol and Drug Abuse Patient Records regulations: The Federal rules restrict any use of the information to criminally investigate or prosecute any alcohol or drug abuse patient.[facility]In the event this information is protected by the Federal Confidentiality of Alcohol and Drug Abuse Patient Records regulations: The Federal rules restrict any use of the information to criminally investigate or prosecute any alcohol or drug abuse patient.[facility]In the event this information is protected by the Federal Confidentiality of Alcohol and Drug Abuse Patient Records regulations: The Federal rules restrict any use of the information to criminally investigate or prosecute any alcohol or drug abuse patient.[facility]In the event this information is protected by the Federal Confidentiality of Alcohol and Drug Abuse Patient Records regulations: The Federal rules restrict any use of the information to criminally investigate or prosecute any alcohol or drug abuse patient.[facility]In the event this information is protected by the Federal Confidentiality of Alcohol and Drug Abuse Patient Records regulations: The Federal rules restrict any use of the information to criminally investigate or prosecute any alcohol or drug abuse patient.[facility]In the event this information is protected by the Federal Confidentiality of Alcohol and Drug Abuse Patient Records regulations: The Federal rules restrict any use of the information to criminally investigate or prosecute any alcohol or drug abuse patient.[facility]In the event this information is protected by the Federal Confidentiality of Alcohol and Drug Abuse Patient Records regulations: The Federal rules restrict any use of the information to criminally investigate or prosecute any alcohol or drug abuse patient.[facility]In the event this information is protected by the Federal Confidentiality of Alcohol and Drug Abuse Patient Records regulations: The Federal rules restrict any use of the information to criminally investigate or prosecute any alcohol or drug abuse patient.[facility]In the event this information is protected by the Federal Confidentiality of Alcohol and Drug Abuse Patient Records regulations: The Federal rules restrict any use of the information to criminally investigate or prosecute any alcohol or drug abuse patient.[facility]In the event this information is protected by the Federal Confidentiality of Alcohol and Drug Abuse Patient Records regulations: The Federal rules restrict any use of the information to criminally investigate or prosecute any alcohol or drug abuse patient.[facility]In the event this information is protected by the Federal Confidentiality of Alcohol and Drug Abuse Patient Records regulations: The Federal rules restrict any use of the information to criminally investigate or prosecute any alcohol or drug abuse patient.[facility]In the event this information is protected by the Federal Confidentiality of Alcohol and Drug Abuse Patient Records regulations: The Federal rules restrict any use of the information to criminally investigate or prosecute any alcohol or drug abuse patient.[facility]In the event this information is protected by the Federal Confidentiality of Alcohol and Drug Abuse Patient Records regulations: The Federal rules restrict any use of the information to criminally investigate or prosecute any alcohol or drug abuse patient.[facility]In the event this information is protected by the Federal Confidentiality of Alcohol and Drug Abuse Patient Records regulations: The Federal rules restrict any use of the information to criminally investigate or prosecute any alcohol or drug abuse patient.[facility]In the event this information is protected by the Federal Confidentiality of Alcohol and Drug Abuse Patient Records regulations: The Federal rules restrict any use of the information to criminally investigate or prosecute any alcohol or drug abuse patient.[facility]In the event this information is protected by the Federal Confidentiality of Alcohol and Drug Abuse Patient Records regulations: The Federal rules restrict any use of the information to criminally investigate or prosecute any alcohol or drug abuse patient.[facility]In the event this information is protected by the Federal Confidentiality of Alcohol and Drug Abuse Patient Records regulations: The Federal rules restrict any use of the information to criminally investigate or prosecute any alcohol or drug abuse patient.[facility]In the event this information is protected by the Federal Confidentiality of Alcohol and Drug Abuse Patient Records regulations: The Federal rules restrict any use of the information to criminally investigate or prosecute any alcohol or drug abuse patient.[facility]In the event this information is protected by the Federal Confidentiality of Alcohol and Drug Abuse Patient Records regulations: The Federal rules restrict any use of the information to criminally investigate or prosecute any alcohol or drug abuse patient.[facility]In the event this information is protected by the Federal Confidentiality of Alcohol and Drug Abuse Patient Records regulations: The Federal rules restrict any use of the information to criminally investigate or prosecute any alcohol or drug abuse patient.[facility]In the event this information is protected by the Federal Confidentiality of Alcohol and Drug Abuse Patient Records regulations: The Federal rules restrict any use of the information to criminally investigate or prosecute any alcohol or drug abuse patient.[facility]In the event this information is protected by the Federal Confidentiality of Alcohol and Drug Abuse Patient Records regulations: The Federal rules restrict any use of the information to criminally investigate or prosecute any alcohol or drug abuse patient.[facility]In the event this information is protected by the Federal Confidentiality of Alcohol and Drug Abuse Patient Records regulations: The Federal rules restrict any use of the information to criminally investigate or prosecute any alcohol or drug abuse patient.[facility]In the event this information is protected by the Federal Confidentiality of Alcohol and Drug Abuse Patient Records regulations: The Federal rules restrict any use of the information to criminally investigate or prosecute any alcohol or drug abuse patient.[facility]In the event this information is protected by the Federal Confidentiality of Alcohol and Drug Abuse Patient Records regulations: The Federal rules restrict any use of the information to criminally investigate or prosecute any alcohol or drug abuse patient.[facility]In the event this information is protected by the Federal Confidentiality of Alcohol and Drug Abuse Patient Records regulations: The Federal rules restrict any use of the information to criminally investigate or prosecute any alcohol or drug abuse patient.[facility]In the event this information is protected by the Federal Confidentiality of Alcohol and Drug Abuse Patient Records regulations: The Federal rules restrict any use of the information to criminally investigate or prosecute any alcohol or drug abuse patient.[facility]In the event this information is protected by the Federal Confidentiality of Alcohol and Drug Abuse Patient Records regulations: The Federal rules restrict any use of the information to criminally investigate or prosecute any alcohol or drug abuse patient.[facility]In the event this information is protected by the Federal Confidentiality of Alcohol and Drug Abuse Patient Records regulations: The Federal rules restrict any use of the information to criminally investigate or prosecute any alcohol or drug abuse patient.[facility]In the event this information is protected by the Federal Confidentiality of Alcohol and Drug Abuse Patient Records regulations: The Federal rules restrict any use of the information to criminally investigate or prosecute any alcohol or drug abuse patient.[facility]In the event this information is protected by the Federal Confidentiality of Alcohol and Drug Abuse Patient Records regulations: The Federal rules restrict any use of the information to criminally investigate or prosecute any alcohol or drug abuse patient.[facility]In the event this information is protected by the Federal Confidentiality of Alcohol and Drug Abuse Patient Records regulations: The Federal rules restrict any use of the information to criminally investigate or prosecute any alcohol or drug abuse patient.[facility]In the event this information is protected by the Federal Confidentiality of Alcohol and Drug Abuse Patient Records regulations: The Federal rules restrict any use of the information to criminally investigate or prosecute any alcohol or drug abuse patient.[facility]In the event this information is protected by the Federal Confidentiality of Alcohol and Drug Abuse Patient Records regulations: The Federal rules restrict any use of the information to criminally investigate or prosecute any alcohol or drug abuse patient.[facility]In the event this information is protected by the Federal Confidentiality of Alcohol and Drug Abuse Patient Records regulations: The Federal rules restrict any use of the information to criminally investigate or prosecute any alcohol or drug abuse patient.[facility]In the event this information is protected by the Federal Confidentiality of Alcohol and Drug Abuse Patient Records regulations: The Federal rules restrict any use of the information to criminally investigate or prosecute any alcohol or drug abuse patient.[facility]In the event this information is protected by the Federal Confidentiality of Alcohol and Drug Abuse Patient Records regulations: The Federal rules restrict any use of the information to criminally investigate or prosecute any alcohol or drug abuse patient.[facility]In the event this information is protected by the Federal Confidentiality of Alcohol and Drug Abuse Patient Records regulations: The Federal rules restrict any use of the information to criminally investigate or prosecute any alcohol or drug abuse patient.[facility]In the event this information is protected by the Federal Confidentiality of Alcohol and Drug Abuse Patient Records regulations: The Federal rules restrict any use of the information to criminally investigate or prosecute any alcohol or drug abuse patient.[facility]In the event this information is protected by the Federal Confidentiality of Alcohol and Drug Abuse Patient Records regulations: The Federal rules restrict any use of the information to criminally investigate or prosecute any alcohol or drug abuse patient.[facility]In the event this information is protected by the Federal Confidentiality of Alcohol and Drug Abuse Patient Records regulations: The Federal rules restrict any use of the information to criminally investigate or prosecute any alcohol or drug abuse patient.[facility]In the event this information is protected by the Federal Confidentiality of Alcohol and Drug Abuse Patient Records regulations: The Federal rules restrict any use of the information to criminally investigate or prosecute any alcohol or drug abuse patient.[facility]In the event this information is protected by the Federal Confidentiality of Alcohol and Drug Abuse Patient Records regulations: The Federal rules restrict any use of the information to criminally investigate or prosecute any alcohol or drug abuse patient.[facility]In the event this information is protected by the Federal Confidentiality of Alcohol and Drug Abuse Patient Records regulations: The Federal rules restrict any use of the information to criminally investigate or prosecute any alcohol or drug abuse patient.[facility]In the event this information is protected by the Federal Confidentiality of Alcohol and Drug Abuse Patient Records regulations: The Federal rules restrict any use of the information to criminally investigate or prosecute any alcohol or drug abuse patient.[facility]In the event this information is protected by the Federal Confidentiality of Alcohol and Drug Abuse Patient Records regulations: The Federal rules restrict any use of the information to criminally investigate or prosecute any alcohol or drug abuse patient.[facility]In the event this information is protected by the Federal Confidentiality of Alcohol and Drug Abuse Patient Records regulations: The Federal rules restrict any use of the information to criminally investigate or prosecute any alcohol or drug abuse patient.[facility]In the event this information is protected by the Federal Confidentiality of Alcohol and Drug Abuse Patient Records regulations: The Federal rules restrict any use of the information to criminally investigate or prosecute any alcohol or drug abuse patient.[facility]In the event this information is protected by the Federal Confidentiality of Alcohol and Drug Abuse Patient Records regulations: The Federal rules restrict any use of the information to criminally investigate or prosecute any alcohol or drug abuse patient.[facility]In the event this information is protected by the Federal Confidentiality of Alcohol and Drug Abuse Patient Records regulations: The Federal rules restrict any use of the information to criminally investigate or prosecute any alcohol or drug abuse patient.[facility]In the event this information is protected by the Federal Confidentiality of Alcohol and Drug Abuse Patient Records regulations: The Federal rules restrict any use of the information to criminally investigate or prosecute any alcohol or drug abuse patient.[facility]bleIn the event this information is protected by the Federal Confidentiality of Alcohol and Drug Abuse Patient Records regulations: The Federal rules restrict any use of the information to criminally investigate or prosecute any alcohol or drug abuse patient.[facility]bleIn the event this information is protected by the Federal Confidentiality of Alcohol and Drug Abuse Patient Records regulations: The Federal rules restrict any use of the information to criminally investigate or prosecute any alcohol or drug abuse patient.[facility]bleIn the event this information is protected by the Federal Confidentiality of Alcohol and Drug Abuse Patient Records regulations: The Federal rules restrict any use of the information to criminally investigate or prosecute any alcohol or drug abuse patient.[facility]bleIn the event this information is protected by the Federal Confidentiality of Alcohol and Drug Abuse Patient Records regulations: The Federal rules restrict any use of the information to criminally investigate or prosecute any alcohol or drug abuse patient.[facility]bleIn the event this information is protected by the Federal Confidentiality of Alcohol and Drug Abuse Patient Records regulations: The Federal rules restrict any use of the information to criminally investigate or prosecute any alcohol or drug abuse patient.[facility]bleIn the event this information is protected by the Federal Confidentiality of Alcohol and Drug Abuse Patient Records regulations: The Federal rules restrict any use of the information to criminally investigate or prosecute any alcohol or drug abuse patient.[facility]bleIn the event this information is protected by the Federal Confidentiality of Alcohol and Drug Abuse Patient Records regulations: The Federal rules restrict any use of the information to criminally investigate or prosecute any alcohol or drug abuse patient.[facility]In the event this information is protected by the Federal Confidentiality of Alcohol and Drug Abuse Patient Records regulations: The Federal rules restrict any use of the information to criminally investigate or prosecute any alcohol or drug abuse patient.[facility]In the event this information is protected by the Federal Confidentiality of Alcohol and Drug Abuse Patient Records regulations: The Federal rules restrict any use of the information to criminally investigate or prosecute any alcohol or drug abuse patient.[facility]bleIn the event this information is protected by the Federal Confidentiality of Alcohol and Drug Abuse Patient Records regulations: The Federal rules restrict any use of the information to criminally investigate or prosecute any alcohol or drug abuse patient.[facility]bleIn the event this information is protected by the Federal Confidentiality of Alcohol and Drug Abuse Patient Records regulations: The Federal rules restrict any use of the information to criminally investigate or prosecute any alcohol or drug abuse patient.[facility]bleIn the event this information is protected by the Federal Confidentiality of Alcohol and Drug Abuse Patient Records regulations: The Federal rules restrict any use of the information to criminally investigate or prosecute any alcohol or drug abuse patient.[facility]In the event this information is protected by the Federal Confidentiality of Alcohol and Drug Abuse Patient Records regulations: The Federal rules restrict any use of the information to criminally investigate or prosecute any alcohol or drug abuse patient.[facility]bleIn the event this information is protected by the Federal Confidentiality of Alcohol and Drug Abuse Patient Records regulations: The Federal rules restrict any use of the information to criminally investigate or prosecute any alcohol or drug abuse patient.[facility]bleIn the event this information is protected by the Federal Confidentiality of Alcohol and Drug Abuse Patient Records regulations: The Federal rules restrict any use of the information to criminally investigate or prosecute any alcohol or drug abuse patient.[facility]bleIn the event this information is protected by the Federal Confidentiality of Alcohol and Drug Abuse Patient Records regulations: The Federal rules restrict any use of the information to criminally investigate or prosecute any alcohol or drug abuse patient.[facility]In the event this information is protected by the Federal Confidentiality of Alcohol and Drug Abuse Patient Records regulations: The Federal rules restrict any use of the information to criminally investigate or prosecute any alcohol or drug abuse patient.[facility]bleIn the event this information is protected by the Federal Confidentiality of Alcohol and Drug Abuse Patient Records regulations: The Federal rules restrict any use of the information to criminally investigate or prosecute any alcohol or drug abuse patient.[facility]In the event this information is protected by the Federal Confidentiality of Alcohol and Drug Abuse Patient Records regulations: The Federal rules restrict any use of the information to criminally investigate or prosecute any alcohol or drug abuse patient.[facility]In the event this information is protected by the Federal Confidentiality of Alcohol and Drug Abuse Patient Records regulations: The Federal rules restrict any use of the information to criminally investigate or prosecute any alcohol or drug abuse patient.[facility]In the event this information is protected by the Federal Confidentiality of Alcohol and Drug Abuse Patient Records regulations: The Federal rules restrict any use of the information to criminally investigate or prosecute any alcohol or drug abuse patient.[facility]In the event this information is protected by the Federal Confidentiality of Alcohol and Drug Abuse Patient Records regulations: The Federal rules restrict any use of the information to criminally investigate or prosecute any alcohol or drug abuse patient.[facility]In the event this information is protected by the Federal Confidentiality of Alcohol and Drug Abuse Patient Records regulations: The Federal rules restrict any use of the information to criminally investigate or prosecute any alcohol or drug abuse patient.[facility]In the event this information is protected by the Federal Confidentiality of Alcohol and Drug Abuse Patient Records regulations: The Federal rules restrict any use of the information to criminally investigate or prosecute any alcohol or drug abuse patient.[facility]In the event this information is protected by the Federal Confidentiality of Alcohol and Drug Abuse Patient Records regulations: The Federal rules restrict any use of the information to criminally investigate or prosecute any alcohol or drug abuse patient.[facility]In the event this information is protected by the Federal Confidentiality of Alcohol and Drug Abuse Patient Records regulations: The Federal rules restrict any use of the information to criminally investigate or prosecute any alcohol or drug abuse patient.[facility]In the event this information is protected by the Federal Confidentiality of Alcohol and Drug Abuse Patient Records regulations: The Federal rules restrict any use of the information to criminally investigate or prosecute any alcohol or drug abuse patient.[facility]In the event this information is protected by the Federal Confidentiality of Alcohol and Drug Abuse Patient Records regulations: The Federal rules restrict any use of the information to criminally investigate or prosecute any alcohol or drug abuse patient.[facility]In the event this information is protected by the Federal Confidentiality of Alcohol and Drug Abuse Patient Records regulations: The Federal rules restrict any use of the information to criminally investigate or prosecute any alcohol or drug abuse patient.[facility]In the event this information is protected by the Federal Confidentiality of Alcohol and Drug Abuse Patient Records regulations: The Federal rules restrict any use of the information to criminally investigate or prosecute any alcohol or drug abuse patient.[facility]bleIn the event this information is protected by the Federal Confidentiality of Alcohol and Drug Abuse Patient Records regulations: The Federal rules restrict any use of the information to criminally investigate or prosecute any alcohol or drug abuse patient.[facility]In the event this information is protected by the Federal Confidentiality of Alcohol and Drug Abuse Patient Records regulations: The Federal rules restrict any use of the information to criminally investigate or prosecute any alcohol or drug abuse patient.[facility]In the event this information is protected by the Federal Confidentiality of Alcohol and Drug Abuse Patient Records regulations: The Federal rules restrict any use of the information to criminally investigate or prosecute any alcohol or drug abuse patient.[facility]In the event this information is protected by the Federal Confidentiality of Alcohol and Drug Abuse Patient Records regulations: The Federal rules restrict any use of the information to criminally investigate or prosecute any alcohol or drug abuse patient.[facility]In the event this information is protected by the Federal Confidentiality of Alcohol and Drug Abuse Patient Records regulations: The Federal rules restrict any use of the information to criminally investigate or prosecute any alcohol or drug abuse patient.[facility]In the event this information is protected by the Federal Confidentiality of Alcohol and Drug Abuse Patient Records regulations: The Federal rules restrict any use of the information to criminally investigate or prosecute any alcohol or drug abuse patient.[facility]In the event this information is protected by the Federal Confidentiality of Alcohol and Drug Abuse Patient Records regulations: The Federal rules restrict any use of the information to criminally investigate or prosecute any alcohol or drug abuse patient.[facility]In the event this information is protected by the Federal Confidentiality of Alcohol and Drug Abuse Patient Records regulations: The Federal rules restrict any use of the information to criminally investigate or prosecute any alcohol or drug abuse patient.[facility]In the event this information is protected by the Federal Confidentiality of Alcohol and Drug Abuse Patient Records regulations: The Federal rules restrict any use of the information to criminally investigate or prosecute any alcohol or drug abuse patient.[facility]In the event this information is protected by the Federal Confidentiality of Alcohol and Drug Abuse Patient Records regulations: The Federal rules restrict any use of the information to criminally investigate or prosecute any alcohol or drug abuse patient.[facility]In the event this information is protected by the Federal Confidentiality of Alcohol and Drug Abuse Patient Records regulations: The Federal rules restrict any use of the information to criminally investigate or prosecute any alcohol or drug abuse patient.[facility]In the event this information is protected by the Federal Confidentiality of Alcohol and Drug Abuse Patient Records regulations: The Federal rules restrict any use of the information to criminally investigate or prosecute any alcohol or drug abuse patient.[facility]In the event this information is protected by the Federal Confidentiality of Alcohol and Drug Abuse Patient Records regulations: The Federal rules restrict any use of the information to criminally investigate or prosecute any alcohol or drug abuse patient.[facility]In the event this information is protected by the Federal Confidentiality of Alcohol and Drug Abuse Patient Records regulations: The Federal rules restrict any use of the information to criminally investigate or prosecute any alcohol or drug abuse patient.[facility]In the event this information is protected by the Federal Confidentiality of Alcohol and Drug Abuse Patient Records regulations: The Federal rules restrict any use of the information to criminally investigate or prosecute any alcohol or drug abuse patient.[facility]In the event this information is protected by the Federal Confidentiality of Alcohol and Drug Abuse Patient Records regulations: The Federal rules restrict any use of the information to criminally investigate or prosecute any alcohol or drug abuse patient.[facility]In the event this information is protected by the Federal Confidentiality of Alcohol and Drug Abuse Patient Records regulations: The Federal rules restrict any use of the information to criminally investigate or prosecute any alcohol or drug abuse patient.[facility]In the event this information is protected by the Federal Confidentiality of Alcohol and Drug Abuse Patient Records regulations: The Federal rules restrict any use of the information to criminally investigate or prosecute any alcohol or drug abuse patient.[facility]In the event this information is protected by the Federal Confidentiality of Alcohol and Drug Abuse Patient Records regulations: The Federal rules restrict any use of the information to criminally investigate or prosecute any alcohol or drug abuse patient.[facility]In the event this information is protected by the Federal Confidentiality of Alcohol and Drug Abuse Patient Records regulations: The Federal rules restrict any use of the information to criminally investigate or prosecute any alcohol or drug abuse patient.[facility]In the event this information is protected by the Federal Confidentiality of Alcohol and Drug Abuse Patient Records regulations: The Federal rules restrict any use of the information to criminally investigate or prosecute any alcohol or drug abuse patient.[facility]In the event this information is protected by the Federal Confidentiality of Alcohol and Drug Abuse Patient Records regulations: The Federal rules restrict any use of the information to criminally investigate or prosecute any alcohol or drug abuse patient.[facility]In the event this information is protected by the Federal Confidentiality of Alcohol and Drug Abuse Patient Records regulations: The Federal rules restrict any use of the information to criminally investigate or prosecute any alcohol or drug abuse patient.[facility]In the event this information is protected by the Federal Confidentiality of Alcohol and Drug Abuse Patient Records regulations: The Federal rules restrict any use of the information to criminally investigate or prosecute any alcohol or drug abuse patient.[facility]In the event this information is protected by the Federal Confidentiality of Alcohol and Drug Abuse Patient Records regulations: The Federal rules restrict any use of the information to criminally investigate or prosecute any alcohol or drug abuse patient.[facility]In the event this information is protected by the Federal Confidentiality of Alcohol and Drug Abuse Patient Records regulations: The Federal rules restrict any use of the information to criminally investigate or prosecute any alcohol or drug abuse patient.[facility]In the event this information is protected by the Federal Confidentiality of Alcohol and Drug Abuse Patient Records regulations: The Federal rules restrict any use of the information to criminally investigate or prosecute any alcohol or drug abuse patient.[facility]In the event this information is protected by the Federal Confidentiality of Alcohol and Drug Abuse Patient Records regulations: The Federal rules restrict any use of the information to criminally investigate or prosecute any alcohol or drug abuse patient.[facility]In the event this information is protected by the Federal Confidentiality of Alcohol and Drug Abuse Patient Records regulations: The Federal rules restrict any use of the information to criminally investigate or prosecute any alcohol or drug abuse patient.[facility]In the event this information is protected by the Federal Confidentiality of Alcohol and Drug Abuse Patient Records regulations: The Federal rules restrict any use of the information to criminally investigate or prosecute any alcohol or drug abuse patient.[facility]In the event this information is protected by the Federal Confidentiality of Alcohol and Drug Abuse Patient Records regulations: The Federal rules restrict any use of the information to criminally investigate or prosecute any alcohol or drug abuse patient.[facility]In the event this information is protected by the Federal Confidentiality of Alcohol and Drug Abuse Patient Records regulations: The Federal rules restrict any use of the information to criminally investigate or prosecute any alcohol or drug abuse patient.[facility]In the event this information is protected by the Federal Confidentiality of Alcohol and Drug Abuse Patient Records regulations: The Federal rules restrict any use of the information to criminally investigate or prosecute any alcohol or drug abuse patient.[facility]In the event this information is protected by the Federal Confidentiality of Alcohol and Drug Abuse Patient Records regulations: The Federal rules restrict any use of the information to criminally investigate or prosecute any alcohol or drug abuse patient.[facility]In the event this information is protected by the Federal Confidentiality of Alcohol and Drug Abuse Patient Records regulations: The Federal rules restrict any use of the information to criminally investigate or prosecute any alcohol or drug abuse patient.[facility]In the event this information is protected by the Federal Confidentiality of Alcohol and Drug Abuse Patient Records regulations: The Federal rules restrict any use of the information to criminally investigate or prosecute any alcohol or drug abuse patient.[facility]In the event this information is protected by the Federal Confidentiality of Alcohol and Drug Abuse Patient Records regulations: The Federal rules restrict any use of the information to criminally investigate or prosecute any alcohol or drug abuse patient.[facility]In the event this information is protected by the Federal Confidentiality of Alcohol and Drug Abuse Patient Records regulations: The Federal rules restrict any use of the information to criminally investigate or prosecute any alcohol or drug abuse patient.[facility]In the event this information is protected by the Federal Confidentiality of Alcohol and Drug Abuse Patient Records regulations: The Federal rules restrict any use of the information to criminally investigate or prosecute any alcohol or drug abuse patient.[facility]In the event this information is protected by the Federal Confidentiality of Alcohol and Drug Abuse Patient Records regulations: The Federal rules restrict any use of the information to criminally investigate or prosecute any alcohol or drug abuse patient.[facility]In the event this information is protected by the Federal Confidentiality of Alcohol and Drug Abuse Patient Records regulations: The Federal rules restrict any use of the information to criminally investigate or prosecute any alcohol or drug abuse patient.[facility]In the event this information is protected by the Federal Confidentiality of Alcohol and Drug Abuse Patient Records regulations: The Federal rules restrict any use of the information to criminally investigate or prosecute any alcohol or drug abuse patient.[facility]In the event this information is protected by the Federal Confidentiality of Alcohol and Drug Abuse Patient Records regulations: The Federal rules restrict any use of the information to criminally investigate or prosecute any alcohol or drug abuse patient.[facility]In the event this information is protected by the Federal Confidentiality of Alcohol and Drug Abuse Patient Records regulations: The Federal rules restrict any use of the information to criminally investigate or prosecute any alcohol or drug abuse patient.[facility]In the event this information is protected by the Federal Confidentiality of Alcohol and Drug Abuse Patient Records regulations: The Federal rules restrict any use of the information to criminally investigate or prosecute any alcohol or drug abuse patient.[facility]In the event this information is protected by the Federal Confidentiality of Alcohol and Drug Abuse Patient Records regulations: The Federal rules restrict any use of the information to criminally investigate or prosecute any alcohol or drug abuse patient.[facility]In the event this information is protected by the Federal Confidentiality of Alcohol and Drug Abuse Patient Records regulations: The Federal rules restrict any use of the information to criminally investigate or prosecute any alcohol or drug abuse patient.[facility]In the event this information is protected by the Federal Confidentiality of Alcohol and Drug Abuse Patient Records regulations: The Federal rules restrict any use of the information to criminally investigate or prosecute any alcohol or drug abuse patient.[facility]In the event this information is protected by the Federal Confidentiality of Alcohol and Drug Abuse Patient Records regulations: The Federal rules restrict any use of the information to criminally investigate or prosecute any alcohol or drug abuse patient.[facility]In the event this information is protected by the Federal Confidentiality of Alcohol and Drug Abuse Patient Records regulations: The Federal rules restrict any use of the information to criminally investigate or prosecute any alcohol or drug abuse patient.[facility]In the event this information is protected by the Federal Confidentiality of Alcohol and Drug Abuse Patient Records regulations: The Federal rules restrict any use of the information to criminally investigate or prosecute any alcohol or drug abuse patient.[facility]In the event this information is protected by the Federal Confidentiality of Alcohol and Drug Abuse Patient Records regulations: The Federal rules restrict any use of the information to criminally investigate or prosecute any alcohol or drug abuse patient.[facility]In the event this information is protected by the Federal Confidentiality of Alcohol and Drug Abuse Patient Records regulations: The Federal rules restrict any use of the information to criminally investigate or prosecute any alcohol or drug abuse patient.[facility]In the event this information is protected by the Federal Confidentiality of Alcohol and Drug Abuse Patient Records regulations: The Federal rules restrict any use of the information to criminally investigate or prosecute any alcohol or drug abuse patient.[facility]In the event this information is protected by the Federal Confidentiality of Alcohol and Drug Abuse Patient Records regulations: The Federal rules restrict any use of the information to criminally investigate or prosecute any alcohol or drug abuse patient.[facility] PrebleIn the event this information is protected by the Federal Confidentiality of Alcohol and Drug Abuse Patient Records regulations: The Federal rules restrict any use of the information to criminally investigate or prosecute any alcohol or drug abuse patient.[facility] PrebleIn the event this information is protected by the Federal Confidentiality of Alcohol and Drug Abuse Patient Records regulations: The Federal rules restrict any use of the information to criminally investigate or prosecute any alcohol or drug abuse patient.[facility] PrebleIn the event this information is protected by the Federal Confidentiality of Alcohol and Drug Abuse Patient Records regulations: The Federal rules restrict any use of the information to criminally investigate or prosecute any alcohol or drug abuse patient.[facility] PrebleIn the event this information is protected by the Federal Confidentiality of Alcohol and Drug Abuse Patient Records regulations: The Federal rules restrict any use of the information to criminally investigate or prosecute any alcohol or drug abuse patient.[facility] PrebleIn the event this information is protected by the Federal Confidentiality of Alcohol and Drug Abuse Patient Records regulations: The Federal rules restrict any use of the information to criminally investigate or prosecute any alcohol or drug abuse patient.[facility] PrebleIn the event this information is protected by the Federal Confidentiality of Alcohol and Drug Abuse Patient Records regulations: The Federal rules restrict any use of the information to criminally investigate or prosecute any alcohol or drug abuse patient.[facility] PrebleIn the event this information is protected by the Federal Confidentiality of Alcohol and Drug Abuse Patient Records regulations: The Federal rules restrict any use of the information to criminally investigate or prosecute any alcohol or drug abuse patient.[facility] PrebleIn the event this information is protected by the Federal Confidentiality of Alcohol and Drug Abuse Patient Records regulations: The Federal rules restrict any use of the information to criminally investigate or prosecute any alcohol or drug abuse patient.[facility] PrebleIn the event this information is protected by the Federal Confidentiality of Alcohol and Drug Abuse Patient Records regulations: The Federal rules restrict any use of the information to criminally investigate or prosecute any alcohol or drug abuse patient.[facility] PrebleIn the event this information is protected by the Federal Confidentiality of Alcohol and Drug Abuse Patient Records regulations: The Federal rules restrict any use of the information to criminally investigate or prosecute any alcohol or drug abuse patient.[facility] PrebleIn the event this information is protected by the Federal Confidentiality of Alcohol and Drug Abuse Patient Records regulations: The Federal rules restrict any use of the information to criminally investigate or prosecute any alcohol or drug abuse patient.[facility] PrebleIn the event this information is protected by the Federal Confidentiality of Alcohol and Drug Abuse Patient Records regulations: The Federal rules restrict any use of the information to criminally investigate or prosecute any alcohol or drug abuse patient.[facility]bleIn the event this information is protected by the Federal Confidentiality of Alcohol and Drug Abuse Patient Records regulations: The Federal rules restrict any use of the information to criminally investigate or prosecute any alcohol or drug abuse patient.[facility]bleIn the event this information is protected by the Federal Confidentiality of Alcohol and Drug Abuse Patient Records regulations: The Federal rules restrict any use of the information to criminally investigate or prosecute any alcohol or drug abuse patient.[facility] PrebleIn the event this information is protected by the Federal Confidentiality of Alcohol and Drug Abuse Patient Records regulations: The Federal rules restrict any use of the information to criminally investigate or prosecute any alcohol or drug abuse patient.[facility] PrebleIn the event this information is protected by the Federal Confidentiality of Alcohol and Drug Abuse Patient Records regulations: The Federal rules restrict any use of the information to criminally investigate or prosecute any alcohol or drug abuse patient.[facility] PrebleIn the event this information is protected by the Federal Confidentiality of Alcohol and Drug Abuse Patient Records regulations: The Federal rules restrict any use of the information to criminally investigate or prosecute any alcohol or drug abuse patient.[facility]bleIn the event this information is protected by the Federal Confidentiality of Alcohol and Drug Abuse Patient Records regulations: The Federal rules restrict any use of the information to criminally investigate or prosecute any alcohol or drug abuse patient.[facility] PrebleIn the event this information is protected by the Federal Confidentiality of Alcohol and Drug Abuse Patient Records regulations: The Federal rules restrict any use of the information to criminally investigate or prosecute any alcohol or drug abuse patient.[facility]bleIn the event this information is protected by the Federal Confidentiality of Alcohol and Drug Abuse Patient Records regulations: The Federal rules restrict any use of the information to criminally investigate or prosecute any alcohol or drug abuse patient.[facility]bleIn the event this information is protected by the Federal Confidentiality of Alcohol and Drug Abuse Patient Records regulations: The Federal rules restrict any use of the information to criminally investigate or prosecute any alcohol or drug abuse patient.[facility]bleIn the event this information is protected by the Federal Confidentiality of Alcohol and Drug Abuse Patient Records regulations: The Federal rules restrict any use of the information to criminally investigate or prosecute any alcohol or drug abuse patient.[facility]bleIn the event this information is protected by the Federal Confidentiality of Alcohol and Drug Abuse Patient Records regulations: The Federal rules restrict any use of the information to criminally investigate or prosecute any alcohol or drug abuse patient.[facility] PrebleIn the event this information is protected by the Federal Confidentiality of Alcohol and Drug Abuse Patient Records regulations: The Federal rules restrict any use of the information to criminally investigate or prosecute any alcohol or drug abuse patient.[facility]bleIn the event this information is protected by the Federal Confidentiality of Alcohol and Drug Abuse Patient Records regulations: The Federal rules restrict any use of the information to criminally investigate or prosecute any alcohol or drug abuse patient.[facility]bleIn the event this information is protected by the Federal Confidentiality of Alcohol and Drug Abuse Patient Records regulations: The Federal rules restrict any use of the information to criminally investigate or prosecute any alcohol or drug abuse patient.[facility]bleIn the event this information is protected by the Federal Confidentiality of Alcohol and Drug Abuse Patient Records regulations: The Federal rules restrict any use of the information to criminally investigate or prosecute any alcohol or drug abuse patient.[facility]bleIn the event this information is protected by the Federal Confidentiality of Alcohol and Drug Abuse Patient Records regulations: The Federal rules restrict any use of the information to criminally investigate or prosecute any alcohol or drug abuse patient.[facility]bleIn the event this information is protected by the Federal Confidentiality of Alcohol and Drug Abuse Patient Records regulations: The Federal rules restrict any use of the information to criminally investigate or prosecute any alcohol or drug abuse patient.[facility]bleIn the event this information is protected by the Federal Confidentiality of Alcohol and Drug Abuse Patient Records regulations: The Federal rules restrict any use of the information to criminally investigate or prosecute any alcohol or drug abuse patient.[facility]bleIn the event this information is protected by the Federal Confidentiality of Alcohol and Drug Abuse Patient Records regulations: The Federal rules restrict any use of the information to criminally investigate or prosecute any alcohol or drug abuse patient.[facility]bleIn the event this information is protected by the Federal Confidentiality of Alcohol and Drug Abuse Patient Records regulations: The Federal rules restrict any use of the information to criminally investigate or prosecute any alcohol or drug abuse patient.[facility]bleIn the event this information is protected by the Federal Confidentiality of Alcohol and Drug Abuse Patient Records regulations: The Federal rules restrict any use of the information to criminally investigate or prosecute any alcohol or drug abuse patient.[facility]bleIn the event this information is protected by the Federal Confidentiality of Alcohol and Drug Abuse Patient Records regulations: The Federal rules restrict any use of the information to criminally investigate or prosecute any alcohol or drug abuse patient.[facility]bleIn the event this information is protected by the Federal Confidentiality of Alcohol and Drug Abuse Patient Records regulations: The Federal rules restrict any use of the information to criminally investigate or prosecute any alcohol or drug abuse patient.[facility]bleIn the event this information is protected by the Federal Confidentiality of Alcohol and Drug Abuse Patient Records regulations: The Federal rules restrict any use of the information to criminally investigate or prosecute any alcohol or drug abuse patient.[facility]bleIn the event this information is protected by the Federal Confidentiality of Alcohol and Drug Abuse Patient Records regulations: The Federal rules restrict any use of the information to criminally investigate or prosecute any alcohol or drug abuse patient.[facility]bleIn the event this information is protected by the Federal Confidentiality of Alcohol and Drug Abuse Patient Records regulations: The Federal rules restrict any use of the information to criminally investigate or prosecute any alcohol or drug abuse patient.[facility]bleIn the event this information is protected by the Federal Confidentiality of Alcohol and Drug Abuse Patient Records regulations: The Federal rules restrict any use of the information to criminally investigate or prosecute any alcohol or drug abuse patient.[facility]bleIn the event this information is protected by the Federal Confidentiality of Alcohol and Drug Abuse Patient Records regulations: The Federal rules restrict any use of the information to criminally investigate or prosecute any alcohol or drug abuse patient.[facility]bleIn the event this information is protected by the Federal Confidentiality of Alcohol and Drug Abuse Patient Records regulations: The Federal rules restrict any use of the information to criminally investigate or prosecute any alcohol or drug abuse patient.[facility]bleIn the event this information is protected by the Federal Confidentiality of Alcohol and Drug Abuse Patient Records regulations: The Federal rules restrict any use of the information to criminally investigate or prosecute any alcohol or drug abuse patient.[facility]bleIn the event this information is protected by the Federal Confidentiality of Alcohol and Drug Abuse Patient Records regulations: The Federal rules restrict any use of the information to criminally investigate or prosecute any alcohol or drug abuse patient.[facility]bleIn the event this information is protected by the Federal Confidentiality of Alcohol and Drug Abuse Patient Records regulations: The Federal rules restrict any use of the information to criminally investigate or prosecute any alcohol or drug abuse patient.[facility]bleIn the event this information is protected by the Federal Confidentiality of Alcohol and Drug Abuse Patient Records regulations: The Federal rules restrict any use of the information to criminally investigate or prosecute any alcohol or drug abuse patient.[facility]bleIn the event this information is protected by the Federal Confidentiality of Alcohol and Drug Abuse Patient Records regulations: The Federal rules restrict any use of the information to criminally investigate or prosecute any alcohol or drug abuse patient.[facility]bleIn the event this information is protected by the Federal Confidentiality of Alcohol and Drug Abuse Patient Records regulations: The Federal rules restrict any use of the information to criminally investigate or prosecute any alcohol or drug abuse patient.[facility]bleIn the event this information is protected by the Federal Confidentiality of Alcohol and Drug Abuse Patient Records regulations: The Federal rules restrict any use of the information to criminally investigate or prosecute any alcohol or drug abuse patient.[facility] PrebleIn the event this information is protected by the Federal Confidentiality of Alcohol and Drug Abuse Patient Records regulations: The Federal rules restrict any use of the information to criminally investigate or prosecute any alcohol or drug abuse patient.[facility]bleIn the event this information is protected by the Federal Confidentiality of Alcohol and Drug Abuse Patient Records regulations: The Federal rules restrict any use of the information to criminally investigate or prosecute any alcohol or drug abuse patient.[facility]bleIn the event this information is protected by the Federal Confidentiality of Alcohol and Drug Abuse Patient Records regulations: The Federal rules restrict any use of the information to criminally investigate or prosecute any alcohol or drug abuse patient.[facility] Reason for Visit (unrecogniz ed section and content) Reason Comments F/U 3 Month Specialty Diagnoses / Procedures Referred By Contac t Referred To Contact Family Medicine / FAMILY MEDICINE Diagnoses Follow-up exam, 3-6 months since previous exam 3 month medication follow up Procedures OFFICE/OUTPATIENT ESTABLISHED HIGH MDM 40 MIN 4C EST Teri Gruber APRN.COMPUTER TECHNOLOGY TRAINER [address] [place] [address] Phone: tel: fax: Teri Gruber APRN.COMPUTER TECHNOLOGY TRAINER [address] [place] [address] Phone: tel: fax: Referral ID Status Reason Start Date Expiration Date V isits Requested Visits Authorized [id number] Authorized 05/05/2024 04/05/2025 99 99 Reason Comments Anticoagulation Specialty Diagnoses / Procedures Referred By Contac t Referred To Contact Internal Medicine / [facility] Diagnoses INR needed for tooth extraction. Procedures EST Franc Hughes MD [address] [place] [address] Anticoag [facility] [address] [place] [address] Referral ID Status Reason Start Date Expiration Date V isits Requested Visits Authorized [id number] Pending Review 01/16/2022 04/16/2022 1 1 Reason [...] 5 NEW CLINICAL PATIENT Iglesia Ansari MD [address] [place] [address] Mj Dos Santos MD [address] [place] [address] Referral ID Status Reason Start Date Expiration Date Visits Re quested Visits Authorized [id number] Closed 02/13/2021 04/05/2021 1 1 Reason Comments [...] Procedures EST DDI PATIENT Micah Rosenberg MD [address] [place] [id number] Cyndy Parker PA-C [address] [place] [address] Referral ID Status Reason Start Date Expiration Date Visits Re quested Visits Authorized [id number] Closed 11/04/2021 04/05/2022 1 1 Reason Comments [...] Kvng Yan MD [address] [place] [address] Referral ID Status Reason Start Date Expiration Date Visits Re quested Visits Authorized [id number] Closed 11/28/2021 04/05/2022 1 1 Reason Comments [...] Care Specialty Diagnoses / Procedures [facility] To Contact Internal Medicine / INTERNAL MEDICINE Diagnoses transferring care Procedures OFFICE/OUTPATIENT ESTABLISHED HIGH MDM 40-54 MIN 4C EST WELL Self Bonnie Sharif APRN.COMPUTER TECHNICAL SPECIALIST [address] [place] [address] Referral ID Status Reason Start Date Expiration Date Visits Re quested Visits Authorized [id number] Closed 01/20/2022 04/05/2022 1 1 Reason Comments [...] MDM 60-74 MINUTES Franc Hills MD [address] [place] [address] Referral ID Status Reason Start Date Expiration Date Visits Requested Visits Authorized [id number] Pending Review PCP Requested Referral 09/24/2022 09/24/2023 1 1 Reason Comments Appointment Specialty Diagnoses / Procedures Referred By Contac t Referred To Contact Internal Medicine / INTERNAL MEDICINE Diagnoses 3 Month follow up Procedures 4C EST Self Franc Hills MD [address] [place] [address] Referral ID Status Reason Start Date Expiration Date V isits Requested Visits Authorized [id number] Outside PCP 11/24/2022 02/22/2023 1 1 Reason Comments Patient Update Anticoagulation hold for 11/26/22 Reason Comments Macular Hole Follow Up Specialty Diagnoses / Procedures Referred By Contac t Referred To Contact Ophthalmology / OPHTHALMOLOGY Diagnoses Annual Procedures EST ADULT Self Kvng Magaña MD [address] [place] [address] Referral ID Status Reason Start Date Expiration Date V isits Requested Visits Authorized [id number] Outside PCP 12/09/2022 03/09/2023 1 1 Reason [...] MDM 60-74 MINUTES Franc Hills MD [address] [place] [address] Referral ID Status Reason Start Date Expiration Date Visits Requested Visits Authorized [id number] Pending Review PCP Requested Referral 10/07/2022 10/07/2023 [...] CANAL LUMBAR W/O CONTRAST MATERIAL Zeny Lam APRN.COMPUTER TECHNOLOGY TRAINER [address] [place] [address] [facility] [place] [address] Referral ID Status Reason Start Date Expiration Date V isits Requested Visits Authorized [id number] Closed Auto-Generate d Referral 05/29/2023 09/04/2023 1 [...] EVALUATION HIGH COMPLEX 45 MINS Zeny Lam APRN.COMPUTER TECHNOLOGY TRAINER [address] [place] [address] [facility] [address] [place] [address] Referral ID Status Reason Start Date Expiration Date Visits Requested Visits Authorized [id number] Authorized Auto-Generat ed Referral 04/06/2023 04/05/2024 99 [...] tract symptoms Procedures CONSULT TO UROLOGY OFFICE/OUTPATIENT [facility] 60 MINUTES Franc Hills MD [address] [place] [id number] Referral ID Status Reason Start Date Expiration Date V isits Requested Visits Authorized [id number] Closed PCP Requested Referral 07/18/2023 07/17/2024 1 [...] CONSULT TO WELLNESS NON-PHARMACOLOGIC PAIN MANAGEMENT OFFICE/OUTPATIENT [facility] 60 MINUTES Zeny Lam APRN.COMPUTER TECHNOLOGY TRAINER [address] [place] [address] Referral ID Status Reason Start Date Expiration Date V isits Requested Visits Authorized [id number] Closed PCP Requested Referral 06/29/2023 06/28/2024 1 [...] NEW [place] ACUPUNCTURE Irene Moraes MD [address] [place] [phone] Walt Yang R Ac [address] [place] [phone] Referral ID Status Reason Start Date Expiration Date Visits Requested Visits Authorized [id number] Authorized Patient Cleared Patient agrees to sign [...] By Contac t Referred To Contact [facility] Diagnoses Unspecified injury of right wrist, hand and finger(s), initial encounter wrist xr Procedures X-RAY WRIST COMPLET MIN 3 VIEWS wrist xr Kvng Freire APRN.COMPUTER TECHNOLOGY TRAINER [address] [place] [address] [facility] [address] [place] [address] Referral ID Status Reason Start Date Expiration Date V isits Requested Visits Authorized [id number] Closed OON/Self Pay Override 01/13/2020 04/05/2020 1 1 Reason Comments ED Follow-up lightheadedness, lexi vated bp [facility] ER 01/08/24 Reason Comments Blood Pressure [...] CT HEAD/BRAIN W/O CONTRAST MATERIAL Zeny Lam DIRECTOR OF INCOME TAX.COMPUTER TECHNOLOGY TRAINER [address] [place] [address] [facility] [place] [address] Referral ID Status Reason Start Date Expiration Date V isits Requested Visits Authorized [id number] Closed Auto-Generate d Referral 02/15/2024 03/16/2025 1 [...] STRESS/PHARM MYOCARDIAL SPECT MULTIPLE STUDIES Teri Gruber, DIRECTOR OF INCOME TAX.COMPUTER TECHNOLOGY TRAINER [address] [place] [address] Phone: tel: fax: [facility] [address] [place] [address] Phone: tel: Referral ID Status Reason Start Date Expiration Date V isits Requested Visits Authorized [id number] Closed Auto-Generate d Referral 05/17/2024 06/16/2025 1 [...] EXHALED NITRIC OXIDE GAS DETERMINATION Zeny Lam APRN.COMPUTER TECHNOLOGY TRAINER [address] [place] [address] Phone: tel: fax: Respiratory [address] [address] Referral ID Status Reason Start Date Expiration Date V isits Requested Visits Authorized [id number] Closed Auto-Generate d Referral 07/25/2024 08/24/2025 1 1 Specialty Diagnoses / Procedures [facility] Referred To Contact [facility] Diagnoses Shortness of breath Procedures SPIROMETRY WITH DILATOR IF OBSTRUCTED BRNCDILAT RSPSE SPMTRY PRE&POST-BRNCDILAT ADMN Zeny Lam APRN.COMPUTER TECHNOLOGY TRAINER [address] [place] [address] Phone: tel: fax: [address] [address] Referral ID Status Reason Start Date Expiration Date V isits Requested Visits Authorized [id number] Closed Auto-Generate d Referral 07/25/2024 08/24/2025 1 1 Specialty Diagnoses / Procedures [facility] Referred To Contact [facility] Diagnoses Shortness of breath Procedures LUNG DIFFUSION CAPACITY (DLCO) DIFFUSING CAPACITY Zeny Lam APRN.COMPUTER TECHNOLOGY TRAINER [address] [place] [address] Phone: tel: fax: [address] [address] Referral ID Status Reason Start Date Expiration Date V isits Requested Visits Authorized [id number] Closed Auto-Generate d Referral 07/25/2024 08/24/2025 1 [...] MDM 40 MIN 4C EST WELL [facility] [address] [place] [address] Phone: tel: Zeny Lam APRN.CNP [address] [place] [address] Phone: tel: fax: Referral ID Status Reason Start Date Expiration Date V isits Requested Visits Authorized [id number] Authorized 04/06/2024 04/05/2025 99 99 Reason Onset Date Comments Refill Request 09/05/2024 Reason Onset Date Comments Refill Request 09/08/2024 Reason Onset Date Comments Anticoagulation 09/21/2024 Reason Comments New Patient Dyspnea Reason Comments Medication Question bp reading Reason Comments Patient Update Thank you Reason Comments F/U 3 Month Care Teams (unrecognized sec tion and content) Instrument Assembler Relationship Specialty Start Date End Date Franc Hills MD [address] [place], [place] [id number] PCP - General 05/30/09 Mckinley Jaramillo, DO [address] [place], [place] [id number] Consulting Hematology/Oncology 05/16/14 Mj Dos Santos MD [address] [place] [address] Software Build Engineer Cardiology 03/01/21 04/17/89 Instrument Assembler Relationship Specialty Start Date End Date Franc Hills MD [address] [place], [place] [id number] PCP - General 05/30/09 Mckinley Jaramillo, DO [address] [place], [place] [id number] Consulting Hematology/Oncology 05/16/14 Mj Dos Santos MD [address] [place] [address] Software Build Engineer Cardiology 03/01/21 04/17/89 Instrument Assembler Relationship Specialty Start Date End Date Franc Hills MD [address] [facility] [place] [address] PCP - General 05/30/09 Mckinley Jaramillo, DO [address] [place] [address] Consulting Hematology/Oncology 05/16/14 Mj Dos Santos MD [address] [facility] [place] [address] Software Build Engineer Cardiology 03/01/21 04/17/89 Instrument Assembler Relationship Specialty Start Date End Date Franc Hills MD [address] [facility] [place] [address] PCP - General 05/30/09 Mckinley Jaramillo, DO [address] [place] [address] Consulting Hematology/Oncology 05/16/14 Mj Dos Santos MD [address] [facility] [place] [address] Software Build Engineer Cardiology 03/01/21 04/17/89 Instrument Assembler Relationship Specialty Start Date End Date Franc Hills MD [address] [facility] [place] [address] PCP - General 05/30/09 Mckinley Jaramillo, DO [address] [place] [address] Consulting Hematology/Oncology 05/16/14 Mj Dos Santos MD [address] [facility] [place] [address] Software Build Engineer Cardiology 03/01/21 04/17/89 Instrument Assembler Relationship Specialty Start Date End Date Franc Hills MD [address] [facility] [place] [address] PCP - General 05/30/09 Mckinley Jaramillo, DO [address] [place] [address] Consulting Hematology/Oncology 05/16/14 Mj Dos Santos MD [address] [place] [address] Software Build Engineer Cardiology 03/01/21 04/17/89 Instrument Assembler Relationship Specialty Start Date End Date Franc Hills MD [address] [facility] [place] [address] PCP - General 05/30/09 Mckinley Jaramillo, DO [address] [place] [address] Consulting Hematology/Oncology 05/16/14 Mj Dos Santos MD [address] [place] [address] Software Build Engineer Cardiology 03/01/21 04/17/89 Instrument Assembler Relationship Specialty Start Date End Date Franc Hills MD [address] [facility] [place] [address] PCP - General 05/30/09 Mckinley Jaramillo, DO [address] [place] [address] Consulting Hematology/Oncology 05/16/14 Mj Dos Santos MD [address] [place] [address] Software Build Engineer Cardiology 03/01/21 04/17/89 Instrument Assembler Relationship Specialty Start Date End Date Franc Hills MD [address] [facility] [place] [address] PCP - General 05/30/09 Mckinley Jaramillo, DO [address] [place] [address] Consulting Hematology/Oncology 05/16/14 Mj Dos Santos MD [address] [place] [address] Software Build Engineer Cardiology 03/01/21 04/17/89 Instrument Assembler Relationship Specialty Start Date End Date Franc Hills MD [address] [facility] [place] [address] PCP - General 05/30/09 Mckinley Jaramillo, DO [address] [place] [address] Consulting Hematology/Oncology 05/16/14 Mj Dos Santos MD [address] [place] [address] Software Build Engineer Cardiology 03/01/21 04/17/89 Instrument Assembler Relationship Specialty Start Date End Date Franc Hills MD [address] [facility] [place] [address] PCP - General 05/30/09 Mckinley Jaramillo, DO [address] [place] [address] Consulting Hematology/Oncology 05/16/14 Mj Dos Santos MD [address] [place] [address] Software Build Engineer Cardiology 03/01/21 04/17/89 Instrument Assembler Relationship Specialty Start Date End Date Franc Hills MD [address] [facility] [place] [address] PCP - General 05/30/09 Mckinley Jaramillo, DO [address] [place] [address] Consulting Hematology/Oncology 05/16/14 Mj Dos Santos MD [address] [place] [address] Software Build Engineer Cardiology 03/01/21 04/17/89 Instrument Assembler Relationship Specialty Start Date End Date Franc Hills MD [address] [facility] [place] [address] PCP - General 05/30/09 Mckinley Jaramillo, DO [address] [place] [address] Consulting Hematology/Oncology 05/16/14 Mj Dos Santos MD [address] [place] [address] Software Build Engineer Cardiology 03/01/21 04/17/89 Instrument Assembler Relationship Specialty Start Date End Date Franc Hills MD [address] [facility] [place] [address] PCP - General 05/30/09 Mckinley Jaramillo, DO [address] [place] [address] Consulting Hematology/Oncology 05/16/14 Mj Dos Santos MD [address] [place] [address] Software Build Engineer Cardiology 03/01/21 04/17/89 Instrument Assembler Relationship Specialty Start Date End Date Franc Hills MD [address] [facility] [place] [address] PCP - General 05/30/09 Mckinley Jaramillo, DO [address] [place] [address] Consulting Hematology/Oncology 05/16/14 Mj Dos Santos MD [address] [place] [address] Software Build Engineer Cardiology 03/01/21 04/17/89 Instrument Assembler Relationship Specialty Start Date End Date Franc Hills MD [address] [place] [address] PCP - General 05/30/09 Mckinley Jaramillo, DO [address] [place] [address] Consulting Hematology/Oncology 05/16/14 Mj Dos Santos MD [address] [place], [place] [id number] Software Build Engineer Cardiology 03/01/21 04/17/89 Instrument Assembler Relationship Specialty Start Date End Date Franc Hills MD [address] [place] [address] PCP - General 05/30/09 Mckinley Jaramillo, DO [address] [place] [address] Consulting Hematology/Oncology 05/16/14 Mj Dos Santos MD [address] [place], [place] [id number] Software Build Engineer Cardiology 03/01/21 04/17/89 Instrument Assembler Relationship Specialty Start Date End Date Franc Hills MD [address] [place] [address] PCP - General 05/30/09 Mckinley Jaramillo, DO [address] [place] [address] Consulting Hematology/Oncology 05/16/14 Mj Dos Santos MD [address] [place] [address] Software Build Engineer Cardiology 03/01/21 04/17/89 Instrument Assembler Relationship Specialty Start Date End Date Franc Hills MD [address] [facility] [place] [address] PCP - General 05/30/09 Mckinley Jaramillo, DO [address] [place] [address] Consulting Hematology/Oncology 05/16/14 Mj Dos Santos MD [address] [place] [address] Software Build Engineer Cardiology 03/01/21 04/17/89 Instrument Assembler Relationship Specialty Start Date End Date Franc Hills MD [address] [facility] [place] [address] PCP - General 05/30/09 Mckinley Jaramillo, DO [address] [place] [address] Consulting Hematology/Oncology 05/16/14 Mj Dos Santos MD [address] [place] [address] Software Build Engineer Cardiology 03/01/21 04/17/89 Instrument Assembler Relationship Specialty Start Date End Date Mani Edwards MD [address] [facility] [place] [address] PCP - General Internal Medicine 02/03/22 Mckinley Jaramillo, DO [address] [place] [address] Consulting Hematology/Oncology 05/16/14 Mj Dos Santos MD [address] [place] [address] Software Build Engineer Cardiology 03/01/21 04/17/89 Instrument Assembler Relationship Specialty Start Date End Date Mani Edwards MD [address] [facility] [place] [place] [address] PCP - General Internal Medicine 02/03/22 Mckinley Jaramillo, DO [address] [place] [address] Consulting Hematology/Oncology 05/16/14 Mj Dos Santos MD [address] [place] [address] Software Build Engineer Cardiology 03/01/21 04/17/89 Instrument Assembler Relationship Specialty Start Date End Date Franc Hills MD [address] [facility] [place] [address] PCP - General Internal Medicine 02/11/22 Mckinley Jaramillo, DO [address] [place] [address] Consulting Hematology/Oncology 05/16/14 Mj Dos Santos MD [address] [place] [address] Software Build Engineer Cardiology 03/01/21 04/17/89 Instrument Assembler Relationship Specialty Start Date End Date Franc Hills MD [address] [facility] [place] [address] PCP - General Internal Medicine 02/11/22 Mckinley Jaramillo, DO [address] [place] [address] Consulting Hematology/Oncology 05/16/14 Mj Dos Santos MD [address] [place] [address] Software Build Engineer Cardiology 03/01/21 04/17/89 Instrument Assembler Relationship Specialty Start Date End Date Franc Hills MD [address] [facility] [place] [address] PCP - General Internal Medicine 02/11/22 Mckinley Jaramillo, DO [address] [place] [address] Consulting Hematology/Oncology 05/16/14 Mj Dos Santos MD [address] [place] [address] Software Build Engineer Cardiology 03/01/21 04/17/89 Instrument Assembler Relationship Specialty Start Date End Date Franc Hills MD [address] [place] [address] PCP - General Internal Medicine 02/11/22 Mckinley Jaramillo, DO [address] [place] [address] Consulting Hematology/Oncology 05/16/14 Mj Dos Santos MD [address] [place] [address] Software Build Engineer Cardiology 03/01/21 04/17/89 Instrument Assembler Relationship Specialty Start Date End Date Franc Hills MD [address] [place] [address] PCP - General Internal Medicine 02/11/22 Mckinley Jaramillo, DO [address] [place] [address] Consulting Hematology/Oncology 05/16/14 Mj Dos Santos MD [address] [facility] [place] [address] Software Build Engineer Cardiology 03/01/21 04/17/89 Instrument Assembler Relationship Specialty Start Date End Date Franc Hills MD [address] [facility] [place] [address] PCP - General Internal Medicine 02/11/22 Mckinley Jaramillo, DO [address] [place] [address] Consulting Hematology/Oncology 05/16/14 Mj Dos Santos MD [address] [place] [address] Software Build Engineer Cardiology 03/01/21 04/17/89 Instrument Assembler Relationship Specialty Start Date End Date Franc Hills MD [address] [facility] [place] [address] PCP - General Internal Medicine 02/11/22 Mckinley Jaramillo, DO [address] [place] [address] Consulting Hematology/Oncology 05/16/14 Mj Dos Santos MD [address] [place] [address] Software Build Engineer Cardiology 03/01/21 04/17/89 Instrument Assembler Relationship Specialty Start Date End Date Franc Hills MD [address] [facility] [place] [address] PCP - General Internal Medicine 02/11/22 Mckinley Jaramillo, DO [address] [place] [address] Consulting Hematology/Oncology 05/16/14 Mj Dos Santos MD [address] [place] [address] Software Build Engineer Cardiology 03/01/21 04/17/89 Instrument Assembler Relationship Specialty Start Date End Date Franc Hills MD [address] [facility] [place] [address] PCP - General Internal Medicine 02/11/22 Mckinley Jaramillo, DO [address] [place] [address] Consulting Hematology/Oncology 05/16/14 Mj Dos Santos MD [address] [place] [address] Software Build Engineer Cardiology 03/01/21 04/17/89 Instrument Assembler Relationship Specialty Start Date End Date Franc Hills MD [address] [facility] [address] PCP - General Internal Medicine 02/11/22 Mckinley Jaramillo, DO [address] [place] [address] Consulting Hematology/Oncology 05/16/14 Mj Dos Santos MD [address] [place] [address] Software Build Engineer Cardiology 03/01/21 04/17/89 Instrument Assembler Relationship Specialty Start Date End Date Franc Hills MD [address] [facility] [place] [address] PCP - General Internal Medicine 02/11/22 Mckinley Jaramillo, DO [address] [place] [address] Consulting Hematology/Oncology 05/16/14 Mj Dos Santos MD [address] [place] [address] Software Build Engineer Cardiology 03/01/21 04/17/89 Instrument Assembler Relationship Specialty Start Date End Date Franc Hills MD [address] [facility] [place] [address] PCP - General Internal Medicine 02/11/22 Mckinley Jaramillo, DO [address] [place] [address] Consulting Hematology/Oncology 05/16/14 Mj Dos Santos MD [address] [place] [address] Software Build Engineer Cardiology 03/01/21 04/17/89 Instrument Assembler Relationship Specialty Start Date End Date Franc Hills MD [address] [facility] [place] [address] PCP - General Internal Medicine 02/11/22 Mckinley Jaramillo, DO [address] [place] [address] Consulting Hematology/Oncology 05/16/14 Mj Dos Santos MD [address] [place] [address] Software Build Engineer Cardiology 03/01/21 04/17/89 Instrument Assembler Relationship Specialty Start Date End Date Franc Hills MD [address] [facility] [place] [address] PCP - General Internal Medicine 02/11/22 Mckinley Jaramillo, DO [address] [place] [address] Consulting Hematology/Oncology 05/16/14 Mj Dos Santos MD [address] [place] [address] Software Build Engineer Cardiology 03/01/21 04/17/89 Instrument Assembler Relationship Specialty Start Date End Date Franc Hills MD [address] [facility] [place] [address] PCP - General Internal Medicine 02/11/22 Mckinley Jaramillo, [address] [place] [address] Consulting Hematology/Oncology 05/16/14 Mj Dos Santos MD [address] [facility] [place] [address] Software Build Engineer Cardiology 03/01/21 04/17/89 Instrument Assembler Relationship Specialty Start Date End Date Franc Hills MD [address] [facility] [place] [place] [address] PCP - General Internal Medicine 02/11/22 Mckinley Jaramillo DO [address] [facility] [place] [address] Consulting Hematology/Oncology 05/16/14 Mj Dos Santos MD [address] [place] [address] Software Build Engineer Cardiology 03/01/21 04/17/89 Instrument Assembler Relationship Specialty Start Date End Date Franc Hills MD [address] [facility] [place] [place] [address] PCP - General Internal Medicine 02/11/22 Mckinley Jaramillo DO [address] [place] [address] Consulting Hematology/Oncology 05/16/14 Mj Dos Santos MD [address] [place], [place] [address] Software Build Engineer Cardiology 03/01/21 04/17/89 Instrument Assembler Relationship Specialty Start Date End Date Frnac Hills MD [address] [place], [place] [address] PCP - General Internal Medicine 02/11/22 Mckinley Jaramillo DO [address] [place] [address] Consulting Hematology/Oncology 05/16/14 Mj Dos Santos MD [address] [place] [address] Software Build Engineer Cardiology 03/01/21 04/17/89 Instrument Assembler Relationship Specialty Start Date End Date Franc Hills MD [address] [place] [address] PCP - General Internal Medicine 02/11/22 Mckinley Jaramillo DO [address] [place] [address] Consulting Hematology/Oncology 05/16/14 Mj Dos Santos MD [address] [place], [place] [address] Software Build Engineer Cardiology 03/01/21 04/17/89 Instrument Assembler Relationship Specialty Start Date End Date Franc Hills MD [address] [place] [address] PCP - General Internal Medicine 02/11/22 Mckinley Jaramillo DO [address] [place] [address] Consulting Hematology/Oncology 05/16/14 Mj Dos Santos MD [address] [place] [address] Software Build Engineer Cardiology 03/01/21 04/17/89 Instrument Assembler Relationship Specialty Start Date End Date Franc Hills MD [address] [place] [address] PCP - General Internal Medicine 02/11/22 Mckinley Jaramillo DO [address] [place] [address] Consulting Hematology/Oncology 05/16/14 Mj Dos Santos MD [address] [place] [address] Software Build Engineer Cardiology 03/01/21 04/17/89 Instrument Assembler Relationship Specialty Start Date End Date Franc Hills MD [address] [place] [address] PCP - General Internal Medicine 02/11/22 Mckinley Jaramillo DO [address] [place] [address] Consulting Hematology/Oncology 05/16/14 Mj Dos Santos MD [address] [place], [place] [address] Software Build Engineer Cardiology 03/01/21 04/17/89 Instrument Assembler Relationship Specialty Start Date End Date Franc Hills MD [address] [place] [address] PCP - General Internal Medicine 02/11/22 11/11/22 Franc Hills MD [address] [place] [address] PCP - General Internal Medicine 11/12/22 Mckinley Jaramillo DO [address] [place] [address] Consulting Hematology/Oncology 05/16/14 Mj Dos Santos MD [address] [place] [address] Software Build Engineer Cardiology 03/01/21 04/17/89 Instrument Assembler Relationship Specialty Start Date End Date Franc iHlls MD [address] [place], [place] [address] PCP - General Internal Medicine 11/12/22 Mckinley Jaramillo DO [address] [place] [address] Consulting Hematology/Oncology 05/16/14 Mj Dos Santos MD [address] [place] [address] Software Build Engineer Cardiology 03/01/21 04/17/89 Instrument Assembler Relationship Specialty Start Date End Date Franc Hills MD [address] [place] [address] PCP - General Internal Medicine 11/12/22 Mckinley Jaramillo DO [address] [place] [address] Consulting Hematology/Oncology 05/16/14 Mj Dos Santos MD [address] [place] [address] Software Build Engineer Cardiology 03/01/21 04/17/89 Instrument Assembler Relationship Specialty Start Date End Date Franc Hills MD [address] [place] [address] PCP - General Internal Medicine 11/12/22 Mckinley Jaramillo DO [address] [place] [address] Consulting Hematology/Oncology 05/16/14 jM Dos Santos MD [address] [place] [address] Software Build Engineer Cardiology 03/01/21 04/17/89 Instrument Assembler Relationship Specialty Start Date End Date Franc Hills MD [address] [place] [address] PCP - General Internal Medicine 11/12/22 Mckinley Jaramillo DO [address] [place] [address] Consulting Hematology/Oncology 05/16/14 Mj Dos Santos MD [address] [place] [place], [place] [address] Software Build Engineer Cardiology 03/01/21 04/17/89 Instrument Assembler Relationship Specialty Start Date End Date Franc Hills MD [address] [place] [address] PCP - General Internal Medicine 11/12/22 Mckinley Jaramillo DO [address] [place] [address] Consulting Hematology/Oncology 05/16/14 Mj Dos Santos MD [address] [facility] [place] [address] Software Build Engineer Cardiology 03/01/21 04/17/89 Instrument Assembler Relationship Specialty Start Date End Date Franc Hills MD [address] [place], [place] [address] PCP - General Internal Medicine 11/12/22 Mckinley Jaramillo DO [address] [place], [place] 4722[address] Consulting Hematology/Oncology 05/16/14 Mj Dos Santos MD [address] [facility] [place] [address] Software Build Engineer Cardiology 03/01/21 04/17/89 Instrument Assembler Relationship Specialty Start Date End Date Franc Hills MD [address] [place], [place] [address] PCP - General Internal Medicine 11/12/22 Mckinley Jaramillo DO [address] [facility] [place] [address] Consulting Hematology/Oncology 05/16/14 Mj Dos Santos MD [address] [place] [address] Software Build Engineer Cardiology 03/01/21 04/17/89 Instrument Assembler Relationship Specialty Start Date End Date Franc Hills MD [address] [place] [address] PCP - General Internal Medicine 11/12/22 Mckinley Jaramillo DO [address] [place] [address] Consulting Hematology/Oncology 05/16/14 Mj Dos Santos MD [address] [place] [address] Software Build Engineer Cardiology 03/01/21 04/17/89 Instrument Assembler Relationship Specialty Start Date End Date Franc Hills MD [address] [place] [address] PCP - General Internal Medicine 11/12/22 Mckinley Jaramillo DO [address] [place] [address] Consulting Hematology/Oncology 05/16/14 Mj Dos Santos MD [address] [place] [address] Software Build Engineer Cardiology 03/01/21 04/17/89 Instrument Assembler Relationship Specialty Start Date End Date Franc Hills MD [address] [place] [address] PCP - General Internal Medicine 11/12/22 Mckinley Jaramillo DO [address] [place] [address] Consulting Hematology/Oncology 05/16/14 Mj Dos Santos MD [address] [place] [address] Software Build Engineer Cardiology 03/01/21 04/17/89 Instrument Assembler Relationship Specialty Start Date End Date Franc Hills MD [address] [place], [place] 320571 PCP - General Internal Medicine 11/12/22 Mckinley Jaramillo DO [address] [place], [place] 348021 Consulting Hematology/Oncology 05/16/14 Mj Dos Santos MD [address] [place] [address] Software Build Engineer Cardiology 03/01/21 04/17/89 Instrument Assembler Relationship Specialty Start Date End Date Franc Hills MD [address] [place] [address] PCP - General Internal Medicine 11/12/22 Mckinley Jaramillo DO [address] [place] [address] Consulting Hematology/Oncology 05/16/14 Mj Dos Santos MD [address] [place] [address] Software Build Engineer Cardiology 03/01/21 04/17/89 Instrument Assembler Relationship Specialty Start Date End Date Franc Hills MD [address] [place], [place] 9469[address] PCP - General Internal Medicine 11/12/22 Mckinley Jaramillo DO [address] [place], [place] 309341 Consulting Hematology/Oncology 05/16/14 Mj Dos Santos MD [address] [place] [address] Software Build Engineer Cardiology 03/01/21 04/17/89 Instrument Assembler Relationship Specialty Start Date End Date Franc Hills MD [address] [place], [place] [address]341 PCP - General Internal Medicine 01/14/23 Mckinley Jaramillo DO [address] [place], [place] 345411 Consulting Hematology/Oncology 05/16/14 Mj Dos Santos MD [address] [place] [address] Software Build Engineer Cardiology 03/01/21 04/17/89 Instrument Assembler Relationship Specialty Start Date End Date Franc Hills MD [address] [place], [place] [address] PCP - General Internal Medicine 01/14/23 Mckinley Jaramillo DO [address] [place] [address] Consulting Hematology/Oncology 05/16/14 Mj Dos Santos MD [address] [place] [address] Software Build Engineer Cardiology 03/01/21 04/17/89 Instrument Assembler Relationship Specialty Start Date End Date Franc Hills MD [address] [place] [address] PCP - General Internal Medicine 01/14/23 Mckinley Jaramillo DO [address] [place] [address] Consulting Hematology/Oncology 05/16/14 Mj Dos Santos MD [address] [place] [address] Software Build Engineer Cardiology 03/01/21 04/17/89 Instrument Assembler Relationship Specialty Start Date End Date Franc Hills MD [address] [place] [address] PCP - General Internal Medicine 01/14/23 Mckinley Jaramillo DO [address] [place] [address] Consulting Hematology/Oncology 05/16/14 Mj Dos Santos MD [address] [place] [address] Software Build Engineer Cardiology 03/01/21 04/17/89 Instrument Assembler Relationship Specialty Start Date End Date Zeny Lam APRN.COMPUTER TECHNOLOGY TRAINER [address] [place] [address] PCP - General Internal Medicine 01/23/23 Mckinley Jaramillo DO [address] [place] [address] Consulting Hematology/Oncology 05/16/14 Mj Dos Santos MD [address] [place] [address] Software Build Engineer Cardiology 03/01/21 04/17/89 Instrument Assembler Relationship Specialty Start Date End Date Zeny Lam APRN.COMPUTER TECHNOLOGY TRAINER [facility] [place], [place] [address] PCP - General Internal Medicine 01/23/23 Mckinley Jaramillo DO [address] [place] [address] Consulting Hematology/Oncology 05/16/14 Mj Dos Santos MD [address] [place] [address] Software Build Engineer Cardiology 03/01/21 04/17/89 Instrument Assembler Relationship Specialty Start Date End Date Zeny Lam APRN.COMPUTER TECHNOLOGY TRAINER [address] [place] [address] PCP - General Internal Medicine 01/23/23 Mckinley Jaramillo DO [address] [place] [address] Consulting Hematology/Oncology 05/16/14 Mj Dos Santos MD [address] [place] [address] Software Build Engineer Cardiology 03/01/21 04/17/89 Instrument Assembler Relationship Specialty Start Date End Date Zeny Lam APRN.COMPUTER TECHNOLOGY TRAINER [address] [place] [address] PCP - General Internal Medicine 01/23/23 Mckinley Jaramillo DO [address] [place] [address] Consulting Hematology/Oncology 05/16/14 Mj Dos Santos MD [address] [place] [address] Software Build Engineer Cardiology 03/01/21 04/17/89 Instrument Assembler Relationship Specialty Start Date End Date Zeny Lam APRN.COMPUTER TECHNOLOGY TRAINER [facility] [place] [address] PCP - General Internal Medicine 01/23/23 Mckinley Jaramillo DO [address] [place] [address] Consulting Hematology/Oncology 05/16/14 Mj Dos Santos MD [address] [place] [address] Software Build Engineer Cardiology 03/01/21 04/17/89 Instrument Assembler Relationship Specialty Start Date End Date Zeny Lam APRN.COMPUTER TECHNOLOGY TRAINER [address] [place], [place] [address] PCP - General Internal Medicine 01/23/23 Mckinley Jaramillo DO [address] [place] [address] Consulting Hematology/Oncology 05/16/14 Mj Dos Santos MD [address] [place] [address] Software Build Engineer Cardiology 03/01/21 04/17/89 Instrument Assembler Relationship Specialty Start Date End Date Zeny Lam APRN.COMPUTER TECHNOLOGY TRAINER [address] [place] [address] PCP - General Internal Medicine 01/23/23 Mckinley Jaramillo DO [address] [place] [address] Consulting Hematology/Oncology 05/16/14 Mj Dos Santos MD [address] [place] [address] Software Build Engineer Cardiology 03/01/21 04/17/89 Instrument Assembler Relationship Specialty Start Date End Date Zeny Lam APRN.COMPUTER TECHNOLOGY TRAINER [address] [place] [address] PCP - General Internal Medicine 01/23/23 Mckinley Jaramillo DO [address] [place] [address] Consulting Hematology/Oncology 05/16/14 Mj Dos Santos MD [address] [place] [address] Software Build Engineer Cardiology 03/01/21 04/17/89 Instrument Assembler Relationship Specialty Start Date End Date Zeny Lam APRN.COMPUTER TECHNOLOGY TRAINER [address] [place] [address] PCP - General Internal Medicine 01/23/23 Mckinley Jaramillo DO [address] [place] [address] Consulting Hematology/Oncology 05/16/14 Mj Dos Santos MD [address] [place] [address] Software Build Engineer Cardiology 03/01/21 04/17/89 Instrument Assembler Relationship Specialty Start Date End Date Zeny Lam APRN.COMPUTER TECHNOLOGY TRAINER [facility] [place] [address] PCP - General Internal Medicine 01/23/23 Mckinley Jaramillo DO [address], [place] 382151 Consulting Hematology/Oncology 05/16/14 Mj Dos Santos MD [address] [place] [address] Software Build Engineer Cardiology 03/01/21 04/17/89 Instrument Assembler Relationship Specialty Start Date End Date Zeny Lam APRN.COMPUTER TECHNOLOGY TRAINER [address] [place] [address] PCP - General Internal Medicine 01/23/23 Mckinley Jaramillo DO [address] [place] [address] Consulting Hematology/Oncology 05/16/14 Mj Dos Santos MD [address] [place] [address] Software Build Engineer Cardiology 03/01/21 04/17/89 Instrument Assembler Relationship Specialty Start Date End Date Zeny Lam APRN.COMPUTER TECHNOLOGY TRAINER [address] [place] [address] PCP - General Internal Medicine 01/23/23 Mckinley Jaramillo DO [address], [place] 388411 Consulting Hematology/Oncology 05/16/14 Mj Dos Santos MD [address] [place] [address] Software Build Engineer Cardiology 03/01/21 04/17/89 Instrument Assembler Relationship Specialty Start Date End Date Zeny Lam APRN.COMPUTER TECHNOLOGY TRAINER [address] [place] [address] PCP - General Internal Medicine 01/23/23 Mckinley Jaramillo DO [address] [place] [address] Consulting Hematology/Oncology 05/16/14 Mj Dos Santos MD [address] [place] [address] Software Build Engineer Cardiology 03/01/21 04/17/89 Instrument Assembler Relationship Specialty Start Date End Date Zeny Lam APRN.COMPUTER TECHNOLOGY TRAINER [facility] [place] [address] PCP - General Internal Medicine 01/23/23 Mckinley Jaramillo DO [address] [place] [address] Consulting Hematology/Oncology 05/16/14 Mj Dos Santos MD [address] [place], [place] [phone] Software Build Engineer Cardiology 03/01/21 04/17/89 Instrument Assembler Relationship Specialty Start Date End Date Zeny Lam APRN.COMPUTER TECHNOLOGY TRAINER [address] [place] [address] PCP - General Internal Medicine 01/23/23 Mckinley Jaramillo DO [address] [place] [address] Consulting Hematology/Oncology 05/16/14 Mj Dos Santos MD [address] [place] [address] Software Build Engineer Cardiology 03/01/21 04/17/89 Instrument Assembler Relationship Specialty Start Date End Date Zeny Lam APRN.COMPUTER TECHNOLOGY TRAINER [address] [place] [address] PCP - General Internal Medicine 01/23/23 Mckinley Jaramillo DO [address] [place] [address] Consulting Hematology/Oncology 05/16/14 Mj Dos Santos MD [address] [place], [place] [phone] Software Build Engineer Cardiology 03/01/21 04/17/89 Instrument Assembler Relationship Specialty Start Date End Date Zeny Lam APRN.COMPUTER TECHNOLOGY TRAINER [address] [place] [address] PCP - General Internal Medicine 01/23/23 Mckinley Jaramillo DO [address] [place] [address] Consulting Hematology/Oncology 05/16/14 Mj Dos Santos MD [address] [place] [address] Software Build Engineer Cardiology 03/01/21 04/17/89 Instrument Assembler Relationship Specialty Start Date End Date Zeny Lam APRN.COMPUTER TECHNOLOGY TRAINER [address] [place], [place] 386781 PCP - General Internal Medicine 01/23/23 Mckinley Jaramillo DO [address], [place] 671751 Consulting Hematology/Oncology 05/16/14 Mj Dos Santos MD [address] [place] [address] Software Build Engineer Cardiology 03/01/21 04/17/89 Instrument Assembler Relationship Specialty Start Date End Date Zeny Lam DIRECTOR OF INCOME TAX.COMPUTER TECHNOLOGY TRAINER [address] [place] [address] PCP - General Internal Medicine 01/23/23 Mckinley Jaramillo DO [address] [place] [address] Consulting Hematology/Oncology 05/16/14 Mj Dos Santos MD [address] [place] [address] Software Build Engineer Cardiology 03/01/21 04/17/89 Instrument Assembler Relationship Specialty Start Date End Date Zeny Lam APRN.COMPUTER TECHNOLOGY TRAINER [address] [place] [address] PCP - General Internal Medicine 01/23/23 Mckinley Jaramillo DO [address] [place] [address] Consulting Hematology/Oncology 05/16/14 Mj Dos Santos MD [address] [place] [address] Software Build Engineer Cardiology 03/01/21 04/17/89 Instrument Assembler Relationship Specialty Start Date End Date Zeny Lam APRN.COMPUTER TECHNOLOGY TRAINER [facility] [place] [address] PCP - General Internal Medicine 01/23/23 Mckinley Jaramillo DO [address], [place] 022931 Consulting Hematology/Oncology 05/16/14 Mj Dos Santos MD [address] [place] [address] Software Build Engineer Cardiology 03/01/21 04/17/89 Instrument Assembler Relationship Specialty Start Date End Date Zeny Lam APRN.COMPUTER TECHNOLOGY TRAINER [address] [place] [address] PCP - General Internal Medicine 01/23/23 Mckinley Jaramillo DO [address] [place] [address] Consulting Hematology/Oncology 05/16/14 Mj Dos Santos MD [address] [place], [place] [phone] Software Build Engineer Cardiology 03/01/21 04/17/89 Instrument Assembler Relationship Specialty Start Date End Date Zeny Lam APRN.COMPUTER TECHNOLOGY TRAINER [address] [place], [place] 667221 PCP - General Internal Medicine 01/23/23 Mckinley Jaramillo DO [address] [place] [address] Consulting Hematology/Oncology 05/16/14 Mj Dos Santos MD [address] [place] [address] Software Build Engineer Cardiology 03/01/21 04/17/89 Instrument Assembler Relationship Specialty Start Date End Date Zeny Lam APRN.COMPUTER TECHNOLOGY TRAINER [address] [place] [address] PCP - General Internal Medicine 01/23/23 Mckinley Jaramillo DO [address] [place] [address] Consulting Hematology/Oncology 05/16/14 Mj Dos Santos MD [address] [place], [place] [phone] Software Build Engineer Cardiology 03/01/21 04/17/89 Instrument Assembler Relationship Specialty Start Date End Date Zeny Lam APRN.COMPUTER TECHNOLOGY TRAINER [address] [place] [address] PCP - General Internal Medicine 01/23/23 Mckinley Jaramillo DO [address] [place] [address] Consulting Hematology/Oncology 05/16/14 Mj Dos Santos MD [address] [place] [address] Software Build Engineer Cardiology 03/01/21 04/17/89 Instrument Assembler Relationship Specialty Start Date End Date Zeny Lam DIRECTOR OF INCOME TAX.COMPUTER TECHNOLOGY TRAINER [facility] [place], [place] 627501 PCP - General Internal Medicine 01/23/23 Mckinley Jaramillo DO [address], [place] 81971691 Consulting Hematology/Oncology 05/16/14 Mj Dos Santos MD [address] [place] [address] Software Build Engineer Cardiology 03/01/21 04/17/89 Instrument Assembler Relationship Specialty Start Date End Date Zeny Lam, DIRECTOR OF INCOME TAX.COMPUTER TECHNOLOGY TRAINER [address] [place] [address] PCP - General Internal Medicine 01/23/23 Mckinley Jaramillo DO [address] [place] [address] Consulting Hematology/Oncology 05/16/14 Mj Dos Santos MD [address] [place] [address] Software Build Engineer Cardiology 03/01/21 04/17/89 Instrument Assembler Relationship Specialty Start Date End Date Zeny Lam APRN.COMPUTER TECHNOLOGY TRAINER [address] [place], [place] 298771 PCP - General Internal Medicine 01/23/23 Mckinley Jaramillo DO [address], [place] 385771 Consulting Hematology/Oncology 05/16/14 Mj Dos Santos MD [address] [facility] [place] [address] Software Build Engineer Cardiology 03/01/21 04/17/89 Instrument Assembler Relationship Specialty Start Date End Date Zeny Lam APRN.COMPUTER TECHNOLOGY TRAINER [address] [place] [address] PCP - General Internal Medicine 01/23/23 Mckinley Jaramillo DO [address] [place] [address] Consulting Hematology/Oncology 05/16/14 Mj Dos Santos MD [address] [place] [address] Software Build Engineer Cardiology 03/01/21 04/17/89 Instrument Assembler Relationship Specialty Start Date End Date Zeny Lam APRN.COMPUTER TECHNOLOGY TRAINER [address] [place] [address] PCP - General Internal Medicine 01/23/23 Mckinley Jaramillo DO [address] [place] [address] Consulting Hematology/Oncology 05/16/14 Mj Dos Santos MD [address] [place], [place] [phone] Software Build Engineer Cardiology 03/01/21 04/17/89 Instrument Assembler Relationship Specialty Start Date End Date Zeny Lam APRN.COMPUTER TECHNOLOGY TRAINER [address] [place], [place] 498401 PCP - General Internal Medicine 01/23/23 Mckinley Jaramillo DO [address] [place] [address] Consulting Hematology/Oncology 05/16/14 Mj Dos Santos MD [address] [place], [place] [phone] Software Build Engineer Cardiology 03/01/21 04/17/89 Instrument Assembler Relationship Specialty Start Date End Date Zeny Lam APRN.COMPUTER TECHNOLOGY TRAINER [address] [place] [address] PCP - General Internal Medicine 01/23/23 Mckinley Jaramillo DO [address], [place] 963111 Consulting Hematology/Oncology 05/16/14 Mj Dos Santos MD [address] [place], [place] [phone] Software Build Engineer Cardiology 03/01/21 04/17/89 Instrument Assembler Relationship Specialty Start Date End Date Zeny Lam APRN.COMPUTER TECHNOLOGY TRAINER [address] [place], [place] 886281 PCP - General Internal Medicine 01/23/23 Mckinley Jaramillo DO [address] [facility] [place] [address] Consulting Hematology/Oncology 05/16/14 Mj Dos Santos MD [address] [place], [place] 7038995 Software Build Engineer Cardiology 03/01/21 04/17/89 Instrument Assembler Relationship Specialty Start Date End Date Zeny Lam APRN.COMPUTER TECHNOLOGY TRAINER [facility] [place], [place] 243881 PCP - General Internal Medicine 01/23/23 Mckinley Jaramillo DO [address], [place] 034691 Consulting Hematology/Oncology 05/16/14 Mj Dos Santos MD [address] [place] [address] Software Build Engineer Cardiology 03/01/21 04/17/89 Instrument Assembler Relationship Specialty Start Date End Date Zeny Lam DIRECTOR OF INCOME TAX.COMPUTER TECHNOLOGY TRAINER [address] [place], [place] 799491 PCP - General Internal Medicine 01/23/23 Mckinley Jaramillo DO [address] [place] [address] Consulting Hematology/Oncology 05/16/14 Mj Dos Santos MD [address] [place], [place] [phone] Software Build Engineer Cardiology 03/01/21 04/17/89 Instrument Assembler Relationship Specialty Start Date End Date Zeny Lam APRN.COMPUTER TECHNOLOGY TRAINER [address] [place], [place] 381281 PCP - General Internal Medicine 01/23/23 Mckinley Jaramillo DO [address], [place] 67450691 Consulting Hematology/Oncology 05/16/14 Mj Dos Santos MD [address] [facility] [address] Software Build Engineer Cardiology 03/01/21 04/17/89 Instrument Assembler Relationship Specialty Start Date End Date Zeny Lam APRN.COMPUTER TECHNOLOGY TRAINER [address] [place] [address] PCP - General Internal Medicine 01/23/23 Mckinley Jaramillo DO [address] [place], [place] 632101 Consulting Hematology/Oncology 05/16/14 Mj Dos Santos MD [address] [place] [address] Software Build Engineer Cardiology 03/01/21 04/17/89 Instrument Assembler Relationship Specialty Start Date End Date Zeny Lam APRN.COMPUTER TECHNOLOGY TRAINER [address] [place], [place] 337791 PCP - General Internal Medicine 01/23/23 Mckinley Jaramillo DO [address], [place] 612121 Consulting Hematology/Oncology 05/16/14 Mj Dos Santos MD [address] [place], [place] 9890695 Software Build Engineer Cardiology 03/01/21 04/17/89 Instrument Assembler Relationship Specialty Start Date End Date Zeny Lam APRN.COMPUTER TECHNOLOGY TRAINER [address] [place], [place] 558721 PCP - General Internal Medicine 01/23/23 Mckinley Jaramillo DO [address], [place] 426891 Consulting Hematology/Oncology 05/16/14 Mj Dos Santos MD [address] [place], [place] 4531995 Software Build Engineer Cardiology 03/01/21 04/17/89 Instrument Assembler Relationship Specialty Start Date End Date Zeny Lam DIRECTOR OF INCOME TAX.COMPUTER TECHNOLOGY TRAINER [address] [place] [address] PCP - General Internal Medicine 01/23/23 Mckinley Jaramillo DO [address] [place], [place] 688901 Consulting Hematology/Oncology 05/16/14 Mj Dos Santos MD [address] [place], [place] [phone] Software Build Engineer Cardiology 03/01/21 04/17/89 Instrument Assembler Relationship Specialty Start Date End Date Zeny Lam APRN.COMPUTER TECHNOLOGY TRAINER [address] [place], [place] 852491 PCP - General Internal Medicine 01/23/23 Mckinley Jaramillo DO [address] [place] [address] Consulting Hematology/Oncology 05/16/14 Mj Dos Santos MD [address] [place], [place] 6987795 Software Build Engineer Cardiology 03/01/21 04/17/89 Instrument Assembler Relationship Specialty Start Date End Date Zeny Lam APRN.COMPUTER TECHNOLOGY TRAINER [facility] [place] [address] PCP - General Internal Medicine 01/23/23 Mckinley Jaramillo DO [address], [place] 538201 Consulting Hematology/Oncology 05/16/14 Mj Dos Santos MD [address] [place], [place] [phone] Software Build Engineer Cardiology 03/01/21 04/17/89 Instrument Assembler Relationship Specialty Start Date End Date Franc Hills MD [address] [place], [place] 515461 PCP - General Internal Medicine 11/12/22 01/12/23 Zeny Lam APRN.COMPUTER TECHNOLOGY TRAINER [address] [place], [place] 784721 PCP - General Internal Medicine 01/13/23 01/13/23 Franc Hills MD [address] [place] [place], [place] 261051 PCP - General Internal Medicine 01/14/23 01/22/23 Zeny Lam APRN.COMPUTER TECHNOLOGY TRAINER [address] [place], [place] 635241 PCP - General Internal Medicine 01/23/23 Mckinley Jaramillo DO [address], [place] 523061 Consulting Hematology/Oncology 05/16/14 Mj Dos Santos MD [address] [place] [place] 2134195 Software Build Engineer Cardiology 03/01/21 04/17/89 Instrument Assembler Relationship Specialty Start Date End Date Franc Hills MD [address] [place], [place] 706421 PCP - General 05/30/09 02/02/22 Mckinley Jaramillo DO [address], [place] 015111 Consulting Hematology/Oncology 05/16/14 Instrument Assembler Relationship Specialty Start Date End Date Zeny Lam APRN.COMPUTER TECHNOLOGY TRAINER [address] [place], [place] 967731 PCP - General Internal Medicine 01/23/23 Mckinley Jaramillo DO [address] [facility] [place], [place] [address] Consulting Hematology/Oncology 05/16/14 Mj Dos Santos MD [address] [place], [place] [phone] Software Build Engineer Cardiology 03/01/21 04/17/89 Instrument Assembler Relationship Specialty Start Date End Date Zeny Lam APRN.COMPUTER TECHNOLOGY TRAINER [address] [place], [place] 329201 PCP - General Internal Medicine 01/23/23 Mckinley Jaramillo DO [address] [place], [place] 629281 Consulting Hematology/Oncology 05/16/14 Mj Dos Santos MD [address] [place] [address] Software Build Engineer Cardiology 03/01/21 04/17/89 Instrument Assembler Relationship Specialty Start Date End Date Zeny Lam APRN.COMPUTER TECHNOLOGY TRAINER [facility] [place], [place] 615611 PCP - General Internal Medicine 01/23/23 Mckinley Jaramillo DO [address] [place], [place] 056491 Consulting Hematology/Oncology 05/16/14 Mj Dos Santos MD [address] [place], [place] [phone] Software Build Engineer Cardiology 03/01/21 04/17/89 Instrument Assembler Relationship Specialty Start Date End Date Zeny Lam APRN.COMPUTER TECHNOLOGY TRAINER [address] [place], [place] 103021 PCP - General Internal Medicine 01/23/23 Mckinley Jaramillo DO [address] [place] [address] Consulting Hematology/Oncology 05/16/14 Mj Dos Santos MD [address] [place] [address] Software Build Engineer Cardiology 03/01/21 04/17/89 Instrument Assembler Relationship Specialty Start Date End Date Zeny Lam APRN.COMPUTER TECHNOLOGY TRAINER [address] [place] [address] PCP - General Internal Medicine 01/23/23 Mckinley Jaramillo DO [address] [place] [address] Consulting Hematology/Oncology 05/16/14 Mj Dos Santos MD [address] [place] [address] Software Build Engineer Cardiology 03/01/21 04/17/89 Instrument Assembler Relationship Specialty Start Date End Date Zeny Lam APRN.COMPUTER TECHNOLOGY TRAINER [address] [place] [address] PCP - General Internal Medicine 01/23/23 Mckinley Jaramillo DO [address] [place] [address] Consulting Hematology/Oncology 05/16/14 Mj Dos Santos MD [address] [place] [address] Software Build Engineer Cardiology 03/01/21 04/17/89 Instrument Assembler Relationship Specialty Start Date End Date Zeny Lam APRN.COMPUTER TECHNOLOGY TRAINER [address] [place] [address] PCP - General Internal Medicine 01/23/23 Mckinley Jaramillo DO [address] [place] [address] Consulting Hematology/Oncology 05/16/14 Mj Dos Santos MD [address] [place] [address] Software Build Engineer Cardiology 03/01/21 04/17/89 Instrument Assembler Relationship Specialty Start Date End Date Zeny Lam APRN.COMPUTER TECHNOLOGY TRAINER [address] [place] [address] PCP - General Internal Medicine 01/23/23 Mckinley Jaramillo DO [address] [place], [place] 992288 [phone] Consulting Hematology/Oncology 05/16/14 Mj Dos Santos MD [address] [place] [address] Software Build Engineer Cardiology 03/01/21 04/17/89 Instrument Assembler Relationship Specialty Start Date End Date Zeny Lam APRN.COMPUTER TECHNOLOGY TRAINER [address] [place] [address] PCP - General Internal Medicine 01/23/23 Mckinley Jaramillo DO [address] [place] [address] Consulting Hematology/Oncology 05/16/14 Mj Dos Santos MD [address] [place], [place] 5514895 Software Build Engineer Cardiology 03/01/21 04/17/89 Instrument Assembler Relationship Specialty Start Date End Date Zeny Lam APRN.COMPUTER TECHNOLOGY TRAINER [address] [place], [place] 085041 PCP - General Internal Medicine 01/23/23 Mckinley Jaramillo DO [address] [place], [place] 368011 Consulting Hematology/Oncology 05/16/14 Mj Dos Santos MD [address] [place] [address] Software Build Engineer Cardiology 03/01/21 04/17/89 Instrument Assembler Relationship Specialty Start Date End Date Zeny Lam APRN.COMPUTER TECHNOLOGY TRAINER [address] [place] [address] PCP - General Internal Medicine 01/23/23 Mckinley Jaramillo DO [address] [place] [address] Consulting Hematology/Oncology 05/16/14 Mj Dos Santos MD [address] [place], [place] 1263195 Software Build Engineer Cardiology 03/01/21 04/17/89 Instrument Assembler Relationship Specialty Start Date End Date Zeny Lam APRN.COMPUTER TECHNOLOGY TRAINER [address] [place], [place] 939561 PCP - General Internal Medicine 01/23/23 Mckinley Jaramillo DO [address] [place] [address] Consulting Hematology/Oncology 05/16/14 Mj Dos Santos MD [address] [place], [place] 1085795 Software Build Engineer Cardiology 03/01/21 04/17/89 Instrument Assembler Relationship Specialty Start Date End Date Zeny Lam APRN.COMPUTER TECHNOLOGY TRAINER [address] [place] [address] PCP - General Internal Medicine 01/23/23 Mckinley Jaramillo DO [address] [place] [address] Consulting Hematology/Oncology 05/16/14 Mj Dos Santos MD [address] [place] [address] Software Build Engineer Cardiology 03/01/21 04/17/89 Instrument Assembler Relationship Specialty Start Date End Date Zeny Lam APRN.COMPUTER TECHNOLOGY TRAINER [address] [place] [address] PCP - General Internal Medicine 01/23/23 Mckinley Jaramillo DO [address] [facility] [place] [address] Consulting Hematology/Oncology 05/16/14 Mj Dos Santos MD [address] [place], [place] [phone] Software Build Engineer Cardiology 03/01/21 04/17/89 Instrument Assembler Relationship Specialty Start Date End Date Zeny Lam APRN.COMPUTER TECHNOLOGY TRAINER [address] [place] [address] PCP - General Internal Medicine 01/23/23 Mckinley Jaramillo DO [address] [place] [address] Consulting Hematology/Oncology 05/16/14 Mj Dos Santos MD [address] [place] [address] Software Build Engineer Cardiology 03/01/21 04/17/89 Instrument Assembler Relationship Specialty Start Date End Date Zeny Lam APRN.COMPUTER TECHNOLOGY TRAINER [address] [place] [address] PCP - General Internal Medicine 01/23/23 Mckinley Jaramillo DO [address] [place], [place] 859911 Consulting Hematology/Oncology 05/16/14 Mj Dos Santos MD [address] [place] [address] Software Build Engineer Cardiology 03/01/21 04/17/89 Instrument Assembler Relationship Specialty Start Date End Date Zeny Lam APRN.COMPUTER TECHNOLOGY TRAINER [address] [place] [address] PCP - General Internal Medicine 01/23/23 Mckinley Jaramillo DO [address] [facility] [place] [address] Consulting Hematology/Oncology 05/16/14 Mj Dos Santos MD [address] [place], [place] 5724195 Software Build Engineer Cardiology 03/01/21 04/17/89 Instrument Assembler Relationship Specialty Start Date End Date Zeny Lam APRN.COMPUTER TECHNOLOGY TRAINER [address] [place], [place] 829151 PCP - General Internal Medicine 01/23/23 Mckinley Jaramillo DO [address] [place], [place] 75655691 Consulting Hematology/Oncology 05/16/14 Mj Dos Santos MD [address] [place] [address] Software Build Engineer Cardiology 03/01/21 04/17/89 Instrument Assembler Relationship Specialty Start Date End Date Zeny Lam APRN.COMPUTER TECHNOLOGY TRAINER [address] [place] [address] PCP - General Internal Medicine 01/23/23 Mckinley Jaramillo DO [address] [place] [address] Consulting Hematology/Oncology 05/16/14 Mj Dos Santos MD [address] [place], [place] [phone] Software Build Engineer Cardiology 03/01/21 04/17/89 Instrument Assembler Relationship Specialty Start Date End Date Zeny Lam APRN.COMPUTER TECHNOLOGY TRAINER [address] [place], [place] 507041 PCP - General Internal Medicine 01/23/23 Mckinley Jaramillo DO [address] [place] [address] Consulting Hematology/Oncology 05/16/14 Mj Dos Santos MD [address] [place] [address] Software Build Engineer Cardiology 03/01/21 04/17/89 Instrument Assembler Relationship Specialty Start Date End Date Zeny Lam APRN.COMPUTER TECHNOLOGY TRAINER [address] [place] [address] PCP - General Internal Medicine 01/23/23 Mckinley Jaramillo DO [address] [place] [address] Consulting Hematology/Oncology 05/16/14 Mj Dos Santos MD [address] [place] [address] Software Build Engineer Cardiology 03/01/21 04/17/89 Instrument Assembler Relationship Specialty Start Date End Date Zeny Lam APRN.COMPUTER TECHNOLOGY TRAINER [address] [place] [address] PCP - General Internal Medicine 01/23/23 Mckinley Jaramillo DO [address] [facility] [place] [address] Consulting Hematology/Oncology 05/16/14 Mj Dos Santos MD [address] [place] [address] Software Build Engineer Cardiology 03/01/21 04/17/89 Instrument Assembler Relationship Specialty Start Date End Date Zeny Lam APRN.COMPUTER TECHNOLOGY TRAINER [address] [place], [place] 413467 [phone] PCP - General Internal Medicine 01/23/23 Mckinley Jaramillo DO [address] [place] [address] Consulting Hematology/Oncology 05/16/14 Mj Dos Santos MD [address] [place], [place] [phone] Software Build Engineer Cardiology 03/01/21 04/17/89 Instrument Assembler Relationship Specialty Start Date End Date Zeny Lam APRN.COMPUTER TECHNOLOGY TRAINER [address] [place] [address] PCP - General Internal Medicine 01/23/23 Mckinley Jaramillo DO [address] [place], [place] 078655 [phone] Consulting Hematology/Oncology 05/16/14 Mj Dos Santos MD [address] [place] [address] Software Build Engineer Cardiology 03/01/21 04/17/89 Instrument Assembler Relationship Specialty Start Date End Date Zeny Lam APRN.COMPUTER TECHNOLOGY TRAINER [address] [place] [address] PCP - General Internal Medicine 01/23/23 Mckinley Jaramillo DO [address] [place] [address] Consulting Hematology/Oncology 05/16/14 Mj Dos Santos MD [address] [place], [place] [phone] Software Build Engineer Cardiology 03/01/21 04/17/89 Instrument Assembler Relationship Specialty Start Date End Date Zeny Lam APRN.COMPUTER TECHNOLOGY TRAINER [address] [place], [place] 450721 [phone] PCP - General Internal Medicine 01/23/23 Mckinley Jaramillo DO [address] [place], [place] 397678 [phone] Consulting Hematology/Oncology 05/16/14 Mj Dos Santos MD [address] [place] [address] Software Build Engineer Cardiology 03/01/21 04/17/89 Instrument Assembler Relationship Specialty Start Date End Date Zeny Lam APRN.COMPUTER TECHNOLOGY TRAINER [address] [place] [address] PCP - General Internal Medicine 01/23/23 Mckinley Jaramillo DO [address] [place] [address] Consulting Hematology/Oncology 05/16/14 Mj Dos Santos MD [address] [place] [address] Software Build Engineer Cardiology 03/01/21 04/17/89 Instrument Assembler Relationship Specialty Start Date End Date Zeny Lam APRN.COMPUTER TECHNOLOGY TRAINER [address] [place] [address] PCP - General Internal Medicine 01/23/23 Mckinley Jaramillo DO [address] [place] [address] Consulting Hematology/Oncology 05/16/14 Mj Dos Santos MD [address] [place] [address] Software Build Engineer Cardiology 03/01/21 04/17/89 Instrument Assembler Relationship Specialty Start Date End Date Zeny Lam APRN.COMPUTER TECHNOLOGY TRAINER [address] [place] [address] PCP - General Internal Medicine 01/23/23 Mckinley Jaramillo DO [address] [place] [address] Consulting Hematology/Oncology 05/16/14 Mj Dos Santos MD [address] [place] [address] Software Build Engineer Cardiology 03/01/21 04/17/89 Instrument Assembler Relationship Specialty Start Date End Date Zeny Lam APRN.COMPUTER TECHNOLOGY TRAINER [address] [place] [address] PCP - General Internal Medicine 01/23/23 Mckinley Jaramillo DO [address] [place] [address] Consulting Hematology/Oncology 05/16/14 Mj Dos Santos MD [address] [place], [place] [id number] Software Build Engineer Cardiology 03/01/21 04/17/89 Instrument Assembler Relationship Specialty Start Date End Date Zeny Lam APRN.COMPUTER TECHNOLOGY TRAINER [address] [place] [address] PCP - General Internal Medicine 01/23/23 Mckinley Jaramillo DO [address] [place] [address] Consulting Hematology/Oncology 05/16/14 Mj Dos Santos MD [address] [place], [place] [id number] Software Build Engineer Cardiology 03/01/21 04/17/89 Instrument Assembler Relationship Specialty Start Date End Date Zeny Lam APRN.COMPUTER TECHNOLOGY TRAINER [address] [place] [address] PCP - General Internal Medicine 01/23/23 Mckinley Jaramillo DO [address] [place] [address] Consulting Hematology/Oncology 05/16/14 Mj Dos Santos MD [address] [place] [address] Software Build Engineer Cardiology 03/01/21 04/17/89 Instrument Assembler Relationship Specialty Start Date End Date Zeny Lam APRN.COMPUTER TECHNOLOGY TRAINER [address] [place] [address] PCP - General Internal Medicine 01/23/23 Mckinley Jaramillo DO [address] [facility] [place] [address] Consulting Hematology/Oncology 05/16/14 Mj Dos Santos MD [address] [place] [address] Software Build Engineer Cardiology 03/01/21 04/17/89 Instrument Assembler Relationship Specialty Start Date End Date Zeny Lam APRN.COMPUTER TECHNOLOGY TRAINER [address] [place], [place] [address] PCP - General Internal Medicine 01/23/23 Mckinley Jaramillo DO [address] [place], [place] [id number] Consulting Hematology/Oncology 05/16/14 Mj Dos Santos MD [address] [facility] [place] [address] Software Build Engineer Cardiology 03/01/21 04/17/89 Team Status: Active Member Role/Relationship Status Dates Teri Gruber NP, BOOK AGENT-C Primary Care Provider Active Team Status: Inactive Member Role/Relationship Status Dates Dr. Danielle Han DO Emergency Provider Active Start: November 19, 2024 End: November 20, 2024 Teri Gruber NP, BOOK AGENT-C Primary Care Provider Active Start: November 19, 2024 End: November 20, 2024 Goals (unrecognized section and content) Goals may be documented in a n alternate sectionGoals may be documented in an alternate section (unrecognized sect ion and content) No Status Records FoundNo Status Records FoundNo Status Records FoundNo Status Records Found INFORMATION SOURCE (unrecogn ized section and content) DATE CREATED AUTHOR 11/13/2023 [facility] DATE CREATED AUTHOR AUTHOR'S ORGANIZ ATION 02/03/[address] [facility] DATE CREATED AUTHOR AUTHOR'S ORGANIZ ATION 08/20/2024 [facility] DATE CREATED AUTHOR AUTHOR'S ORGANIZ ATION 11/17/2024 [facility] FOR RECORDS PERTAINING TO PATIENTS WHO ARE [...] BE BASED ON THE PRIMARY CLINICAL RECORDS. [facility] [employer] [facility]. provides no warranty or guarantee of the accuracy or completeness of information in this document.
--- NOTE | 2024-11-20 10:07 | PCM.PRE.AN2 ---
ASA Classification* ASA Classification ASA Classification: 3 and E Assessment & Plan Anesthesia* Anesthesia Assessment Anesthesia Assessment: Discussed sedation and/or anesthesia options, risks, benefits, and alternatives with patient/parents/legal guardian/POA. Questions invited. The patient/parents/legal guardian/POA seems to understand and agrees to proceed with anesthesia plan. Reviewed the physical assessment, medical history, allergy history and patient home medications list prior to surgery/procedure/anesthetic and documented any changes. Performed airway and anesthesia risk assessments. Anesthesia Type Anesthesia Type: General History Source History Obtained from:: Patient and Chart Anesthesia Focused Assessment* Temperature: 98.1 F Pulse Rate: 74 Blood Pressure: 164/87 Respiratory Rate: 19 Pulse Ox: 100 Oxygen Delivery Method: Room Air Airway Assessment Mouth opens: >3 cm Mallampati Score: II Teeth Condition: Intact Neck Range of motion (ROM): Limited ROM Labs Anesthesia Preop lab: CBC WBC 13.2 K/mm3 (4.4-11.0) H 11/20/24 00:11/20/24 RBC 5.32 M/mm3 (4.6-6.2) 11/20/24 00:11/20/24 Hgb 16.8 g/dL (13.0-16.5) H 11/20/24 00:11/20/24 Hct 50.1 % (40-54) 11/20/24 00:11/20/24 Plt Count 155 K/mm3 (150-450) 11/20/24 00:11/20/24 CHEMISTRY Potassium 4.6 mmol/L (3.3-5.1) 11/20/24 00:11/20/24 Sodium 140 mmol/L (133-145) 11/20/24 00:11/20/24 BUN 15 mg/dL (4-19) 11/20/24 00:11/20/24 Creatinine 0.83 mg/dL (0.70-1.20) 11/20/24 00:11/20/24 Glucose 104 mg/dL (70-99) H 11/20/24 00:11/20/24 COAG PT 22.7 SECONDS (11.7-14.9) H 11/20/24 00:11/20/24 Pre-Assessment Diagnosis/Proposed Procedure Planned Operative Procedure(s): EGD for food disimpaction Anesthesia History Anesthesia History - case mgr: Anesthesia History - case mgr Hx Hospitalization No 03/24/22 12:51 Any Problems With Anesthesia No 11/20/24 09:02 Cholinesterase deficiency No 03/24/22 12:51 You/Your Family Experience No 03/24/22 12:51 fever (hyperthermia) with Relationship Recent Exposure to Contagious No 03/24/22 12:51 Disease Does patient have nerve No 11/20/24 09:02 stimulator Patient instructed to have device shut off --Does patient have Pacemaker or ICD? When Was Last Pacemaker Check QUESTION #4 FULL TEXT: You/Your Family Experience fever (hyperthermia) with Anesthesia Last Oral Intake Last Oral intake: Last Oral Intake NPO since Meds taken in AM with sips of water? Meds patient instructed to take am of surgery PONV PONV - case mgr: PONV - case mgr Female HX of Motion Sickness HX of N/V After Surgery Non-Smoker Duration of Surgery greater than 60 minutes Number of Risk Factors PONV Score Height & Weight Height & Weight: Anesthesia: Height & Weight Height 6 ft 1 in 11/20/24 09:02 Weight: 86.5 kg 11/20/24 09:02 Body Mass Index (BMI) 25.1 11/20/24 09:02 Respiratory Assessment Respiratory Assessment - case mgr: Respiratory Tract Infection Hx - case mgr Hx Respiratory Tract Infection No 03/24/22 12:51 STOP Sleep Apnea STOP Sleep Apnea - case mgr: STOP Sleep Apnea - case mgr Hx Hypertension Yes 11/20/24 09:02 Hx Sleep Apnea No 11/20/24 09:02 CPAP No 03/24/22 12:51 BIPAP No 03/24/22 12:51 Do you snore loudly (louder Yes 11/20/24 09:02 than talking or can be heard Do you often feel tired/ No 11/20/24 09:02 fatigued/ sleepy during daytime? Has anyone observed you stop No 11/20/24 09:02 breathing during sleep? STOP Results Positive 11/20/24 09:02 QUESTION #5 FULL TEXT : Do you snore loudly (louder than talking or can be heard through closed doors)? 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 Specify any problems Hx of Preganancy in last 3 Months Nurse Filling Out Transfusion & Questions: Date: Time: Patient unable to answer at this time (ie. confused, unrespo /Reproduction History /Reproductive History - case mgr: /Reproductive Hx- case mgr Hx Now Gestational Age (in weeks): EDC: Hx Hx Para Hx Section SAB Active Medications Active Medications: Current Medications Generic Name Dose Route Start Last Admin Trade Name Freq PRN Reason Stop Dose Admin Sodium Chloride 1,000 mls @ 150 mls/hr 11/20/24 00:05 11/20/24 09:04 IV 150 mls/hr .[id number] LUISA Administration PFSH Medical History Wears glasses Alcohol use Kidney stone Back pain Injury of head and neck Former smoker Asthma Hoarseness History of pain when walking History of edema Hypertension History of echocardiogram History of stress test Cardiology follow-up encounter GERD (gastroesophageal reflux disease) Essential hypertension Lumbago-sciatica due to displacement of lumbar intervertebral disc Osteoarthritis Hyperlipidemia Neuropathy Left bundle branch block Pulmonary embolism Home Medications ?Medication ?Instructions ?Recorded ?Last Taken ?Type ascorbic acid (vitamin C) 1,000 mg 1 g PO DAILY 12/16/18 Unknown History tablet coenzyme Q10 200 mg capsule 400 mg PO DAILY 12/16/18 Unknown History fluticasone propionate 50 1 spray intranasal DAILY 12/16/18 Unknown History mcg/actuation nasal spray,suspension (Allergy Relief (fluticasone)) multivitamin 2 tab PO DAILY 12/16/18 Unknown History rosuvastatin 10 mg tablet (Crestor) 40 mg PO QHS 12/16/18 Unknown History aspirin 81 mg tablet 81 mg PO DAILY 01/10/21 Unknown History potassium chloride 10 mEq 10 meq PO BID 01/10/21 Unknown History capsule,extended release famotidine 40 mg tablet 40 mg PO DAILY GERD 03/20/22 Unknown History lorazepam 1 mg tablet 2 mg PO QHS PRN PRN Insomnia 03/20/22 Unknown History nifedipine 60 mg tablet,extended 60 mg PO DAILY 11/20/24 Unknown History release 24 hr warfarin 5 mg tablet mg PO 11/20/24 Unknown History Allergy/AdvReac Type Severity Reaction Status Date / Time cephalexin (From [employer]) Allergy Intermediate Rash Verified 11/19/24 19:08 cyclobenzaprine AdvReac Mild PT UNABLE Verified 11/19/24 19:08 TO RESPOND-NEEDS F/U gabapentin AdvReac Mild Other Verified 11/19/24 19:08 Family History Father , Age 74 CAD (coronary artery disease) Myocardial infarction Mother , age 104 No problems noted. Surgical History Hx of carotid angioplasty H/O colonoscopy with polypectomy RFA of lumbar spine S/P IVC filter (~2011) History of hand surgery Social History Smoking Status: Former smoker pack-years: 15 Review of Systems (Anesthesia) ROS Narrative System reviewed and no additional complaints, except as documented.
--- NOTE | 2024-11-20 10:19 | PCM.HP.STD ---
HPI - General General Date of Admission: 11/20/24 Date of Service: 11/20/24 Chief Complaint: Food bolus HPI Narrative ALEX BROOKS, is a 79 M who presents to the ED after eating chicken and vegetables and having inability to swallow. [facility] Medical History Wears glasses Alcohol use Kidney stone Back pain Injury of head and neck Former smoker Asthma Hoarseness History of pain when walking History of edema Hypertension History of echocardiogram History of stress test Cardiology follow-up encounter GERD (gastroesophageal reflux disease) Essential hypertension Lumbago-sciatica due to displacement of lumbar intervertebral disc Osteoarthritis Hyperlipidemia Neuropathy Left bundle branch block Pulmonary embolism Home Medications ?Medication ?Instructions ?Recorded ?Last Taken ?Type ascorbic acid (vitamin C) 1,000 mg 1 g PO DAILY 12/16/18 Unknown History tablet coenzyme Q10 200 mg capsule 400 mg PO DAILY 12/16/18 Unknown History fluticasone propionate 50 1 spray intranasal DAILY 12/16/18 Unknown History mcg/actuation nasal spray,suspension (Allergy Relief (fluticasone)) multivitamin 2 tab PO DAILY 12/16/18 Unknown History rosuvastatin 10 mg tablet (Crestor) 40 mg PO QHS 12/16/18 Unknown History aspirin 81 mg tablet 81 mg PO DAILY 01/10/21 Unknown History potassium chloride 10 mEq 10 meq PO BID 01/10/21 Unknown History capsule,extended release famotidine 40 mg tablet 40 mg PO DAILY GERD 03/20/22 Unknown History lorazepam 1 mg tablet 2 mg PO QHS PRN PRN Insomnia 03/20/22 Unknown History nifedipine 60 mg tablet,extended 60 mg PO DAILY 11/20/24 Unknown History release 24 hr warfarin 5 mg tablet mg PO 11/20/24 Unknown History Allergy/AdvReac Type Severity Reaction Status Date / Time cephalexin (From [employer]) Allergy Intermediate Rash Verified 11/19/24 19:08 cyclobenzaprine AdvReac Mild PT UNABLE Verified 11/19/24 19:08 TO RESPOND-NEEDS F/U gabapentin AdvReac Mild Other Verified 11/19/24 19:08 Family History Father , Age 74 CAD (coronary artery disease) Myocardial infarction Mother , age 104 No problems noted. Surgical History Hx of carotid angioplasty H/O colonoscopy with polypectomy RFA of lumbar spine S/P IVC filter (~2011) History of hand surgery Social History Smoking Status: Former smoker pack-years: 15 ROS Constitutional Constitutional: Denies fatigue, fever(s), poor appetite, weight gain or weight loss Gastrointestinal Gastrointestinal: Denies belching, bloating, change in bowel habits, change in stool character, chewing difficulty, coffee ground emesis, constipation, cramping, diarrhea, dyspepsia, dysphagia, early satiety, excessive flatus, fecal incontinence, heartburn, hematemesis, hematochezia, hemorrhoids, loose stools, melena, nausea, odynophagia, rectal bleeding, tenesmus, vomiting or weight changes Vital Signs Vital Signs Vital Signs: 11/19/24 19:08 11/19/24 21:07 11/19/24 23:00 Temperature 98 F Temperature Source Oral Pulse Rate 69 80 85 Respiratory Rate 16 20 H Blood Pressure 130/82 H 120/78 178/90 H Blood Pressure Mean 98 92 119 Pulse Ox 92 96 93 Oxygen Delivery Method Room Air 11/20/24 01:00 11/20/24 03:00 11/20/24 05:00 Temperature Temperature Source Pulse Rate 97 77 73 Respiratory Rate 20 H 20 H 18 Blood Pressure 163/93 H 169/83 H 164/87 H Blood Pressure Mean 116 111 112 Pulse Ox 91 91 98 Oxygen Delivery Method Room Air Room Air Room Air 11/20/24 07:00 11/20/24 09:03 11/20/24 10:08 Temperature 98.1 F 98.1 F Temperature Source Pulse Rate 89 74 74 Respiratory Rate 16 19 H 19 H Blood Pressure 172/84 H 164/87 H 164/87 H Blood Pressure Mean 113 112 Pulse Ox 98 100 100 Oxygen Delivery Method Room Air Room Air Weight Weight: 190 lb 11.198 oz Body Mass Index (BMI) 25.1 Physical Exam Const alert, oriented x3, no apparent distress and healthy appearing General Appearance: cooperative GI normal to inspection, nondistended, normoactive bowel sounds, soft to palpation, non-tender and non-distended Percussion: normal to percussion Rectal Exam: deferred Results Lab / Micro Data 11/20/24 00:29 11/20/24 00:29 Labs: Laboratory Results - last 24 hr 11/20/24 00:29: WBC 13.2 H, RBC 5.32, Hgb 16.8 H, Hct 50.1, MCV 94.2 H, MCH 31.6, MCHC 33.5, RDW Std Deviation 48.7 H, RDW Coeff of Uyen 14.2, Plt Count 155, MPV 10.4, Immature Gran % (Auto) 0.300, Neut % (Auto) 83.7 H, Lymph % (Auto) 12.2 L, [place] % (Auto) 3.3, Eos % (Auto) 0.1, Baso % (Auto) 0.4, Absolute Neuts (auto) 11.1 H, Absolute Lymphs (auto) 1.61, Nucleated RBC % 0, PT 22.7 H, INR 2.0, Sodium 140, Potassium 4.6, Chloride 110 H, Carbon Dioxide 15.4 L, Anion Gap 15, BUN 15, Creatinine 0.83, Estim Creat Clear Calc 78.88, Est GFR (MDRD) Non-Af 88, BUN/Creatinine Ratio 17.4, Glucose 104 H, Calcium 9.1 Assessment & Plan Assessment/Plan (1) Obstruction of distal esophagus due to foreign body: PLAN: He will undergo food bolus removal. He was explained alternatives, risk, benefits include not withstanding bleeding, infection, sepsis, perforation, need for emergent . He will have an ASA of 3.
[2024-11-20] MEDS: 0.9% Normal Saline (1000mL) 600 ML IV (10:20)
[2024-11-20] MEDS: fentaNYL 100 MCG/2 ML Ampul IV (10:26)
[2024-11-20] MEDS: Lidocaine 1% (5 ml sdv) 5 ML Vial IV (10:26)
--- NOTE | 2024-11-20 11:14 | OP.EGD_ITS ---
Patient Name: Crispin Holt Procedure Date: 11/20/2024 9:25 AM Date of : 1945 Age: 79 Procedure: Upper GI endoscopy Indications: Foreign body in the esophagus Providers: Rashad Simmons DO Medicines: Monitored Anesthesia Care Patient Profile: This is an 79 year old male. Refer to note in patient chart for documentation of history and physical. Patient has symptoms. Complications: No immediate complications. Procedure: Pre-Anesthesia Assessment: - Prior to the procedure, a History and Physical was performed, and patient medications and allergies were reviewed. The patient is competent. The risks and benefits of the procedure and the sedation options and risks were discussed with the patient. All questions were answered and informed consent was obtained. Patient identification and proposed procedure were verified by the physician in the pre-procedure area. Mental Status Examination: alert and oriented. Airway Examination: normal oropharyngeal airway and neck mobility. Respiratory Examination: clear to auscultation. CV Examination: normal. Prophylactic Antibiotics: The patient does not require prophylactic antibiotics. Prior Anticoagulants: The patient has taken no anticoagulant or antiplatelet agents. ASA Grade Assessment: II - A patient with mild systemic disease. After reviewing the risks and benefits, the patient was deemed in satisfactory condition to undergo the procedure. The anesthesia plan was to use monitored anesthesia care (MAC). Immediately prior to administration of medications, the patient was re-assessed for adequacy to receive sedatives. The heart rate, respiratory rate, oxygen saturations, blood pressure, adequacy of pulmonary ventilation, and response to care were monitored throughout the procedure. The physical status of the patient was re-assessed after the procedure. After obtaining informed consent, the endoscope was passed under direct vision. Throughout the procedure, the patient's blood pressure, pulse, and oxygen saturations were monitored continuously. The gastroscope was introduced through the mouth, and advanced to the second part of duodenum. The upper GI endoscopy was accomplished without difficulty. The patient tolerated the procedure well. Scope In: 10:31:50 AM Scope Out: 11:02:36 AM Total Procedure Duration Time 0 hours 30 minutes 46 seconds Findings: Food was found in the entire esophagus. Removal was accomplished with a Raptor grasping device and Kang net. Abnormal motility was noted in the esophagus. The cricopharyngeus was abnormal. There are extra peristaltic waves in the esophageal body. The distal esophagus/lower esophageal sphincter is spastic, but gives up passage to the endoscope. Tertiary peristaltic waves are noted. A moderate Schatzki ring was found in the lower third of the esophagus. No gross lesions were noted in the entire examined stomach. No gross lesions were noted in the entire examined duodenum. Impression: - Food in the esophagus. Removal was successful. - Abnormal esophageal motility. - Moderate Schatzki ring. - No gross lesions in the entire stomach. - No gross lesions in the entire examined duodenum. Recommendation: - Discharge patient to home. - Resume previous diet. - Continue present medications. - Use Protonix (pantoprazole) 40 mg PO BID for 5 months. Procedure Code(s): --- Professional --- 78394, Esophagogastroduodenoscopy, flexible, transoral; with removal of foreign body(s) CPT copyright 2021 [employer]. All rights reserved. The codes documented in this report are preliminary and upon esol teacher review may be revised to meet current compliance requirements. Rashad Simmons DO 11/20/2024 11:13:19 AM This report has been signed electronically. Number of Addenda: 0 Note Initiated On: 11/20/2024 9:25 AM
--- NOTE | 2024-11-20 11:14 | OP.PROVAT_ITS ---
11/20/2024 Edgar Coleman Re : Upper GI endoscopy procedure for Crispin Holt Dear Caro This procedure was performed on Wednesday, November 20, 2024. My impressions and recommendations are as follows: Impressions : - Food in the esophagus. Removal was successful. - Abnormal esophageal motility. - Moderate Schatzki ring. - No gross lesions in the entire stomach. - No gross lesions in the entire examined duodenum. Recommendations : - Discharge patient to home. - Resume previous diet. - Continue present medications. - Use Protonix (pantoprazole) 40 mg PO BID for 5 months. My findings are described in the full procedure note, which is enclosed. If I can be of further assistance, please feel free to contact me at . Sincerely, Rashad Friend, 11/20/2024 11:13:19 AM This report has been signed electronically.
--- NOTE | 2024-11-20 11:20 | PCM.POST.ANE ---
Anesthesia: Postop Eval I Current Vital Signs Temperature: 97.8 F Pulse Rate: 83 Blood Pressure: 146/95 Respiratory Rate: 16 Pulse Ox: 96 Oxygen Delivery Method: Room Air Assessment Airway patent: Yes Spontaneous unlabored respirations: Yes Mental status: Awake and Calm nausea: No Vomiting: No Anesthesia Complication: No Fluid Hydration Crystalloid volume administer (ml): 600 Total IV fluid infused: 600 Progress Note Anesthesia document: Postop Eval 1 completed: Yes
--- NOTE | 2024-11-20 11:35 | PCM.POSTANE2 ---
Anesthesia Postop Eval I Sum Postop Eval Completion status Anesthesia document: Postop Eval 1 completed: Yes Anesthesia Postop Eval I Summary Anesthesia Postop Eval I Summary: Anesthesia Postop Eval I: Assessment Summary Airway patent Yes 11/20/24 11:21 Spontaneous unlabored Yes 11/20/24 11:21 respirations Mental status Awake,Calm 11/20/24 11:21 nausea No 11/20/24 11:21 Vomiting No 11/20/24 11:21 Anesthesia Postop Eval I: Fluid Summary Crystalloid volume administer 600 11/20/24 11:21 (ml) Colloids volume administered ( ml) Blood Product volume administered (ml) Total IV fluid infused 600 11/20/24 11:21 Anesthesia Postop Eval I: Summary Notes Anesthesia Complication No 11/20/24 11:21 Anesthesia Complication Comment: Post-operative progress note Anesthesia: Postop Eval II Evaluation Mental status: Awake and Calm Pain Level: 1 nausea: No Vomiting: No Complications Anesthesia Complication: No
== END 2024-11-20 11:45 | disposition home or self-care (01) ==
LOC: ED 11-20 09:18 → SDC 11-20 09:33 → ACINP 11-20 09:39
PROVIDERS: Emergency Provider Emergency Medicine; PCP Nurse Practitioner Family; Visit Provider Internal Medicine Gastroenterology
PROC: 0DJ08ZZ Inspection of Upper Intestinal Tract, Via Natural or Artificial Opening Endoscopic (ICD-10-PCS; CPT 43235; principal; 2024-11-20 09:45)
DX: T18.128A Food in esophagus causing other injury, initial encounter (principal); J44.9 Chronic obstructive pulmonary disease, unspecified; E86.0 Dehydration; K21.9 Gastro-esophageal reflux disease without esophagitis; K22.2 Esophageal obstruction; Z79.899 Other long term (current) drug therapy; I10 Essential (primary) hypertension; Z79.01 Long term (current) use of anticoagulants; Z87.891 Personal history of nicotine dependence; W44.F3XA Food entering into or through a natural orifice, initial encounter
CPT/HCPCS: 43247; 80048; 85025; 85610; 99285; A4216; J1610; J2405